=== PATIENT | female | born 1945 | race Caucasian/White ===

== ENCOUNTER → 2016-04-07 | Outpatient (CLI) | payer OTHER ==
[~2016-04-07] MED LIST: ACET325T82 PO; ADVIN25/60 INH; ALBUAER19 INH; AMLO-114 PO; AMX500 PO; B-CO1CAP17 PO; BENZ100C7 PO; BXN500 PO; CALC667C4 PO; CEPH500T PO; CLON0.1T12 PO; CMD5 PO; COLE1TAB PO; CYNI1000 IM; EPGI10M; ERGO1CAP35 PO; ERGO500037 PO; FRS/40 PO; INSDGI SC; IPRASOL4 INH; IRON INFUSIONS IV; LACT1TAB26 PO; LCTX PO; LEVO1TAB34 PO; LIDO1CRE24 TOP; LIDO1CRE58 TOP; LMTHP PO; LOSA100T65 PO; LOSA1TAB38 PO; LSX40 PO; LVQ500 PO; METH4PAK PO; METO25TA56 PO; NVLGIPEN SQ; ONDA8TAB12 PO; OXGN; PANT40TA PO; PRD20 PO; PRED10TA PO; PRED1SUS3 OPL; PRT/40 PO; PSEU1TAB PO; RBTUDL10 PO; UMEC1INH INH; VALA1TAB2 PO; VALA1TAB31 PO; VNTHFA/IN INH; WARF5TAB90 PO
--- NOTE | 2016-04-07 10:40 | DIAGNOSTIC IMAGING REPORT ---
RENAL ULTRASOUND CLINICAL HISTORY: Right renal mass. COMPARISON STUDY: Renal ultrasound and CT of the abdomen and pelvis October 04, 2015. TECHNIQUE: Sonography of the kidneys and the urinary bladder was performed. FINDINGS: The right kidney measures 9.5 x 4.2 x 4 cm and the left measures 8.9 x 3.6 x 3.7 cm. There is increased renal echogenicity. Note is made of moderate to marked renal cortical thinning. A 2.4 cm cystic lesion within the midpole of the right kidney is noted. This corresponds to the hyperdense lesion shown on prior CT. This is minimally increased in size since exam of October 04, 2015 when it measured 2.1 cm. There is no hydronephrosis. The bladder suboptimally assessed on this exam due to underdistention but no abnormalities are identified. IMPRESSION: 1. Mild increase in size of a 2.4 cm right renal cyst. This corresponds to the hyperdense lesion shown on prior CT. This is almost entirely cystic and is likely benign. 2. No hydronephrosis. 3. Increased renal echogenicity and moderate to marked renal cortical thinning. Electronically signed by: Vicente Tapia M.D. 04/07/2016 10:38 AM Dictated Date/Time: 04/07/2016 10:35 AM
== END | disposition home or self-care (01) ==
LOC: C.ULTR 10:05
PROVIDERS: ATTEND Urology
DX: N28.89 Other specified disorders of kidney and ureter (principal); N28.1 Cyst of kidney, acquired

== ENCOUNTER 2016-04-12 17:55 | Inpatient (IN) | payer OTHER ==
[~2016-04-12] VITALS: Ht 167.6 cm; Wt 92.8 kg
[~2016-04-12 17:55] MED LIST changes: -ACET325T82 PO; -AMX500 PO; -B-CO1CAP17 PO; -BENZ100C7 PO; -BXN500 PO; -CEPH500T PO; -COLE1TAB PO; -CYNI1000 IM; -ERGO500037 PO; -LACT1TAB26 PO; -LCTX PO; -LEVO1TAB34 PO; -LIDO1CRE58 TOP; -LMTHP PO; -LOSA1TAB38 PO; -LSX40 PO; -LVQ500 PO; -METH4PAK PO; -ONDA8TAB12 PO; -PANT40TA PO; -PRD20 PO; -PRED10TA PO; -PRT/40 PO; -PSEU1TAB PO; -UMEC1INH INH; -VALA1TAB2 PO; -VNTHFA/IN INH; -WARF5TAB90 PO
--- NOTE | 2016-04-12 18:21 | EMERGENCY ROOM VISIT NOTE ---
History Report prepared by Sebastian: Tamiko Cornejo Under the Supervision of: Dr. Hailey Valdez M.D. First contact with patient: 18:09 Chief Complaint: SHORTNESS OF BREATH Stated Complaint: SOB Nursing Triage Summary: Patient is from home, increased SOB since Tuesday. Dialysis patient, due for dialysis tomorrow. Home O2 Chronic 2 L NC. 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 The patient states that after a full round dialysis on 2 days ago she a meal of Romanian food and then she vomited. She states then she started experiencing diarrhea, chills, chest pain, and worsening SOB. She states that she normally wears 2 L of oxygen at home at night but put it on a little earlier due to the SOB. She states that she has continued to be nauseous and dry heave because she has not eaten anything recently and only had some re aurelia toady. She states she has not taken any of her medication except for warfarin yesterday and today. The patient's daughter states that the patient has recently been vomiting after feeling ill and then afterwards feeling better but states that the last 2 days her symptoms were not resolved. The patient states that she has dialysis Tuesdays, and Saturdays and only makes little amounts of her own urine. 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 A total of 10 systems reviewed and were otherwise negative. 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 (14) Hypertension Nos (15) Moderate mitral regurgitation (16) Obesity (17) Osteoarthritis (18) Pancreatic cyst (19) Psoriasis (20) Renal cyst Surgical Problems: (1) H/O colonoscopy (2) H/O nasal polypectomy (3) History of cataract surgery (4) S/P appendectomy (5) S/P cholecystectomy (6) S/P left oophorectomy (7) S/P ASH (total abdominal hysterectomy) Family History Diabetes mellitus FATHER MOTHER BROTHER FH: cancer BROTHER FH: heart disease FATHER Hypertension BROTHER Kidney disease BROTHER Social History Smoking Status: Current Every Day Smoker Marital Status: Housing Status: lives with family Occupation Status: retired Current/Historical Medications Scheduled Amlodipine (Norvasc), 10 MG PO QAM Calcium Acetate (Phoslo 667 Mg), 1 CAP PO TID Clonidine Hcl (Catapres), 0.1 MG PO QAM Cyanocobalamin (Cyanocobalamin), 1,000 MCG IM MONTHLY Epoetin Hakan (Procrit), UD Ergocalciferol (Vitamin D Cap), 50,000 INTERUNIT PO MONTHLY Fluticasone Prop/Salmeterol (Advair Diskus 250/50 60 Dose), 2 PUFF INH BID Furosemide (Lasix), 40 MG PO DAILY Insulin Aspart (Novolog Flexpen), UNITS SQ UD Insulin Glargine (Lantus), 26 UNITS SC QAM Lidocaine-Prilocaine (Emla), 1 APPLN TOP UD Losartan Potassium (Cozaar), 100 MG PO QAM Metoprolol Tartrate (Lopressor) (Lopressor), 37.5 MG PO BID Oxygen (Oxygen), 2.5 LITERS NA HS Prednisolone Acetate 1% Oph (Pred Forte 1% Oph), 1 DROP OPL QAM Valacyclovir Hcl (Valtrex), 1 GM PO QAM Warfarin Sod (Coumadin), 7.5 MG PO DAILY Scheduled PRN Albuterol Inhaler (Ventolin Inhaler), 2 PUFFS INH Q4 PRN for Wheezing Ipratropium-Albuterol (Duoneb), 1 TREATMENT INH QID PRN for SOB/Wheezing Ondansetron Hcl (Zofran), 8 MG PO Q8 PRN for Nausea or Vomiting Allergies Coded Allergies: No Known Allergies (Verified , 04/12/16) Physical Exam Vital Signs Date Time Temp Pulse Resp B/P Pulse Ox O2 Delivery O2 Flow Rate FiO2 04/12/16 21:33 74 32 95 Nasal Cannula 3.0 04/12/16 21:28 174/82 04/12/16 21:04 72 27 95 Nasal Cannula 3.0 04/12/16 20:58 177/86 04/12/16 20:34 74 95 Nasal Cannula 3.0 04/12/16 20:29 189/64 04/12/16 19:59 177/61 04/12/16 19:55 73 96 Nasal Cannula 3.0 04/12/16 19:28 175/75 04/12/16 19:21 174/67 04/12/16 18:55 75 27 04/12/16 18:18 87 Nasal Cannula 2.0 04/12/16 18:13 80 04/12/16 18:03 Nasal Cannula 2.0 04/12/16 18:02 37.6 80 20 178/70 94 Nasal Cannula 2.0 04/12/16 18:01 178/70 04/12/16 18:00 Nasal Cannula 2.0 Physical Exam Vital signs reviewed. General: Chronically ill appearing female on nasal canula oxygen. HEENT: No scleral icterus, PERRLA, neck supple. Atraumatic. Cardiovascular: Regular rate and rhythm, no extra sounds. Pulmonary: Increased work of breathing, diminished breath sounds at the bases with crackles throughout. Abdomen: Soft, nontender, nondistended, positive bowel sounds. Musculoskeletal: Atraumatic, no peripheral edema. Neurologic: Patient awake alert and oriented x 3, full strength in all 4 extremities. Cranial nerves 2 through 12 grossly intact. Skin: Warm, dry, no rash Medical Decision & Procedures ER Provider Diagnostic Interpretation: X-ray results as stated below per interpretation by me and the radiologist: CHEST ONE VIEW PORTABLE HISTORY: Cough. Short of breath. COMPARISON: Chest 03/18/2016. FINDINGS: The cardiac silhouette is mildly enlarged. There are slight prominence of interstitial markings. No focal lung consolidations to suggest pneumonia. No pleural effusions. No pneumothorax. IMPRESSION: Cardiomegaly with slight prominence of interstitial markings. This favors mild pulmonary vascular congestion without overt edema. Electronically signed by: Dave Castañeda M.D. 04/12/2016 7:25 PM Dictated Date/Time: 04/12/2016 7:23 PM Laboratory Results Test 04/12/16 18:00 04/12/16 18:31 04/12/16 18:38 Immature Granulocyte % (Auto) 0.2 % White Blood Count 4.04 K/uL (4.8-10.8) Red Blood Count 2.42 M/uL (4.2-5.4) Hemoglobin 8.4 g/dL (12.0-16.0) Hematocrit 26.7 % (37-47) Mean Corpuscular Volume 110.3 fL (80-100) Mean Corpuscular Hemoglobin 34.7 pg (25-34) Mean Corpuscular Hemoglobin Concent 31.5 g/dl (32-36) Platelet Count 135 K/uL (130-400) Mean Platelet Volume 10.0 fL (7.4-10.4) Neutrophils (%) (Auto) 76.3 % Lymphocytes (%) (Auto) 11.9 % Monocytes (%) (Auto) 10.9 % Eosinophils (%) (Auto) 0.5 % Basophils (%) (Auto) 0.2 % Neutrophils # (Auto) 3.08 K/uL (1.4-6.5) Lymphocytes # (Auto) 0.48 K/uL (1.2-3.4) Monocytes # (Auto) 0.44 K/uL (0.11-0.59) Eosinophils # (Auto) 0.02 K/uL (0-0.5) Basophils # (Auto) 0.01 K/uL (0-0.2) Immature Granulocyte # (Auto) 0.01 K/uL (0.00-0.02) Polychromasia 1+ Macrocytosis PRESENT Activated Partial Thromboplast Time 32.2 SECONDS (21.0-31.0) Partial Thromboplastin Ratio 1.2 Total Bilirubin 1.2 mg/dl (0.2-1) Direct Bilirubin 0.2 mg/dl (0-0.2) Aspartate Amino Transf (AST/SGOT) 15 U/L (15-37) Alanine Aminotransferase (ALT/SGPT) 20 U/L (12-78) Alkaline Phosphatase 108 U/L (45-117) Total Protein 6.5 gm/dl (6.4-8.2) Albumin 3.3 gm/dl (3.4-5.0) Hepatitis C Antibody Screen NEG (NEG) Bedside Troponin I 0.020 ng/ml (0-0.045) Influenza Type A (RT-PCR) Neg for Influ A (NEG) Influenza Type B (RT-PCR) Neg for Influ B (NEG) Laboratory results per my review. Medications Administered Medications (Trade) Dose Ordered Sig/Joan Route Start Time Stop Time Status Last Admin Dose Admin Piperacillin Sod/ Tazobactam Sod (Zosyn Iv) 4.5 gm NOW STAT IV 04/12/16 20:32 04/12/16 20:34 DC 04/12/16 20:53 4.5 GM ECG Indication: SOB/dyspnea Rate (beats per minute): 79 Rhythm: normal sinus Findings: no acute ischemic change, no ectopy ED Course 1810: Past medical records reviewed. The patient was evaluated in room B6. A complete history and physical examination was performed. 2031: Ordered Zosyn IV 4.5 gm IV. 2034: I discussed the case with Dr. Jennifer Mulligan. He agreed to evaluate the patient for further management and care. Medical Decision The patient is a 71 year old female who presents to the ED with complaints of SOB. Differentials include etiologies such as infections, reactive airway disease, pneumonia, pneumothorax, COPD, CHF, cardiac ischemia, pulmonary embolism, musculoskeletal, gastrointestinal, as well as others were entertained. This pt was evaluated and appeared to be in no distress. IV access was obtained and lab work was drawn. 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 EKG reveals no evidence of acute ischemia. Lab work reveals a chronic anemia and leukopenia with stable K+. CXR reveals pulm vascular congestion. Pt is hypoxic on her n/c O2. Pt was given zosyn 4.5 gm IV as she was mildly febrile for possibility of underlying PNA. Pt was d./w the hospitalist service for further evaluation and management. Pt and daughter were are of the plan and agree. Consults Time Called: 2029 Consulting Physician: Dr. Jennifer Torres Returned Call: 2034 I discussed the case with Dr. Jennifer Mulligan. He agreed to evaluate the patient for further management and care. Impression Primary Impression: Hypoxemia Additional Impressions: Pulmonary congestion ESRD (end stage renal disease) on dialysis Scribe Attestation The scribe's documentation has been prepared under my direction and personally reviewed by me in its entirety. I confirm that the note above accurately reflects all work, treatment, procedures, and medical decision making performed by me. Departure Information Dispostion Being Evaluated By Hospitalist Referrals Noam Armando M.D. (PCP) Problem Qualifiers
[2016-04-12 18:36] LABS: BASO % 0.2 %; BASO ABS # 0.01 K/uL (0-0.2); EOS % 0.5 %; HEMATOCRIT 26.7 % (37-47); IG% 0.2 %; LYMPH % 11.9 %; LYMPH ABS # 0.48 K/uL (1.2-3.4); MEAN CELL VOLUME 110.3 fL (80-100); MEAN CORPUSCULAR HEMOGLOBIN 34.7 pg (25-34); MEAN CORPUSCULAR HGB CONC 31.5 g/dl (32-36); MONO % 10.9 %; NEUT % 76.3 %; PLATELET COUNT 135 K/uL (130-400); RED BLOOD COUNT 2.42 M/uL (4.2-5.4); WHITE BLOOD COUNT 4.04 K/uL (4.8-10.8)
[2016-04-12 18:48] LABS: INR 1.4 (0.9-1.1); PARTIAL THROMBOPLASTIN RATIO 1.2; PROTHROMBIN TIME (PATIENT) 15.4 SECONDS (9.0-12.0)
[2016-04-12 19:09] LABS: COMPLETE YES; POLYCHROMASIA 1+
[2016-04-12 19:21] LABS: BUN/CREATININE RATIO 8.3 (10-20); POTASSIUM 4.4 mmol/L (3.5-5.1)
[2016-04-12 19:22] LABS: CREATININE 9.1 mg/dl (0.60-1.20)
--- NOTE | 2016-04-12 19:27 | DIAGNOSTIC IMAGING REPORT ---
CHEST ONE VIEW PORTABLE HISTORY: Cough. Short of breath. COMPARISON: Chest 03/18/2016. FINDINGS: The cardiac silhouette is mildly enlarged. There are slight prominence of interstitial markings. No focal lung consolidations to suggest pneumonia. No pleural effusions. No pneumothorax. IMPRESSION: Cardiomegaly with slight prominence of interstitial markings. This favors mild pulmonary vascular congestion without overt edema. Electronically signed by: Dave Castañeda M.D. 04/12/2016 7:25 PM Dictated Date/Time: 04/12/2016 7:23 PM
[2016-04-12] MEDS ORDERED: PIPERACILLIN/TAZOBACTAM 4.5 GM/100ML D5W IV STA (20:32)
[2016-04-12 21:07] LABS: INFLUENZA A PCR Neg for Influ A (NEG); INFLUENZA B PCR Neg for Influ B (NEG)
[2016-04-12] MEDS ORDERED: CYNI1000 IM (21:59)
[2016-04-12] MEDS ORDERED: ACETAMINOPHEN 325 MG TAB PO PRN (22:00)
[2016-04-12] MEDS ORDERED: ALBUTEROL HFA 8 GM INHALER INH PRN (22:00)
[2016-04-12] MEDS ORDERED: ONDANSETRON INJ 2 MG/ML 2 ML VIAL IV PRN (22:00)
[2016-04-12] MEDS ORDERED: ONDA8TAB12 PO (22:11)
[2016-04-12 22:14] VITALS: Ht 167.6 cm; Wt 92.8 kg
[2016-04-12] MEDS ORDERED: GLUCOSE 40% GEL 15 GM TUBE PO PRN (22:15)
[2016-04-12] MEDS ORDERED: GLUCAGON FOR INJ 1 MG VIAL SQ PRN (22:15)
[2016-04-12] MEDS ORDERED: GLUCOSE 10 TABS/TUBE PO PRN (22:15)
[2016-04-12] MEDS ORDERED: ALBUT/IPRATROP 3MG/0.5MG NEB 3 ML VIAL INH PRN (22:15)
[2016-04-12] MEDS ORDERED: DEXTROSE 50% 50 ML SYR IV PRN (22:15)
[2016-04-12] MEDS ORDERED: PIPERACILL/TAZOBAC CONSULT ACTIVE PRN (22:30)
--- NOTE | 2016-04-12 22:41 | History and Physical ---
History & Physical Date & Time of Service: Apr 12, 2016 at 22:08 Chief Complaint: SOB Primary Care Physician: Noam Armando M.D. History of Present Illness Source: patient, clinic records, hospital records This is a 71 year old female with PMH of ESRD on HD, HTN, PAF on Coumadin, DM type 2, moderate COPD on chronic nocturnal O2, and other problems listed below who presents to the ED for SOB. Patient follows with Dr. Armando for primary care and Dr. Tijerina for nephrology. She gets dialysis -- Tue with last dialysis on Tuesday. Patient was recently treated with Levaquin as outpatient for CLOVIS pneumonia diagnosed on CT on ER visit 03/18/16. Symptoms had resolved. Then two days ago she became ill with SOB, wheezing, cough with yellow sputum, rhinorrhea, sneezing, watery eyes, chills, nausea, vomiting, and diarrhea. Breathing is now improved after neb treatment given en route. No further vomiting or diarrhea since yesterday evening. No PO intake today. She produces a small amount of urine. She denies fever, sore throat, ear ache, BETANCOURT, abdominal pain, edema, weight gain, abnormal bleeding. Patient did not take any of her medications for past 2 days except for Coumadin. Past Medical/Surgical History Medical Problems: (1) A-fib Permanent Comment: paroxysmal Status: Chronic (2) Adrenal adenoma Status: Chronic (3) Anemia of chronic disease Status: Chronic (4) AV fistula Status: Chronic (5) COPD, moderate Permanent Comment: 2L O2 at home Status: Chronic (6) Diastolic dysfunction with chronic heart failure Permanent Comment: echo 07/2014 - EF 60-65%, grade II diastolic dysfunction echo 06/2015 - diastolic function normal Status: Chronic (7) DM type 2 (diabetes mellitus, type 2) Status: Chronic (8) Dyslipidemia Status: Chronic (9) ESRD (end stage renal disease) on dialysis Status: Chronic (10) H/O cardiovascular stress test Permanent Comment: 05/2013 - negative for ischemia Status: Chronic (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 (12) Hypertension Nos Status: Chronic (13) Moderate mitral regurgitation Permanent Comment: echo 06/2015 - calcified mitral valve, moderate MR Status: Chronic (14) Obesity Status: Chronic (15) Osteoarthritis Status: Chronic (16) Pancreatic cyst Status: Chronic (17) Psoriasis Status: Chronic (18) Renal cyst Status: Chronic Surgical Problems: (1) H/O colonoscopy Permanent Comment: 2005, hyperplastic polyps repeat in 10 years Status: Chronic (2) H/O nasal polypectomy Status: Chronic (3) History of cataract surgery Status: Chronic (4) S/P appendectomy Permanent Comment: 1971 Status: Chronic (5) S/P cholecystectomy Permanent Comment: 1971 Status: Chronic (6) S/P left oophorectomy Permanent Comment: 1981 Status: Chronic (7) S/P ASH (total abdominal hysterectomy) Permanent Comment: For Fibroids Status: Resolved Family History Diabetes mellitus FATHER MOTHER BROTHER FH: cancer BROTHER FH: heart disease FATHER Hypertension BROTHER Kidney disease BROTHER Social History Smoking Status: Current Every Day Smoker (states less than 1 ppd) Alcohol Use: none Drug Use: none Housing status: lives alone Immunizations History of Influenza Vaccine: Yes Influenza Vaccine Date: Dec 26, 2014 History of Tetanus Vaccine?: Yes Tetanus Immunization Date: August 04, 2010 History of Pneumococcal: Yes Pneumococcal Date: Feb 24, 2015 Multi-Drug Resistant Organisms History of MDRO: No Allergies Coded Allergies: No Known Allergies (Verified , 04/12/16) Home Medications Scheduled Amlodipine (Norvasc), 10 MG PO QAM Calcium Acetate (Phoslo 667 Mg), 1 CAP PO TID Clonidine Hcl (Catapres), 0.1 MG PO QAM Cyanocobalamin (Cyanocobalamin), 1,000 MCG IM MONTHLY Epoetin Hakan (Procrit), UD Ergocalciferol (Vitamin D Cap), 50,000 INTERUNIT PO MONTHLY Fluticasone Prop/Salmeterol (Advair Diskus 250/50 60 Dose), 2 PUFF INH BID Furosemide (Lasix), 40 MG PO DAILY Insulin Aspart (Novolog Flexpen), UNITS SQ UD Insulin Glargine (Lantus), 26 UNITS SC QAM Lidocaine-Prilocaine (Emla), 1 APPLN TOP UD Losartan Potassium (Cozaar), 100 MG PO QAM Metoprolol Tartrate (Lopressor) (Lopressor), 37.5 MG PO BID Oxygen (Oxygen), 2.5 LITERS NA HS Prednisolone Acetate 1% Oph (Pred Forte 1% Oph), 1 DROP OPL QAM Valacyclovir Hcl (Valtrex), 1 GM PO QAM Warfarin Sod (Coumadin), 7.5 MG PO DAILY Scheduled PRN Albuterol Inhaler (Ventolin Inhaler), 2 PUFFS INH Q4 PRN for Wheezing Ipratropium-Albuterol (Duoneb), 1 TREATMENT INH QID PRN for SOB/Wheezing Ondansetron Hcl (Zofran), 8 MG PO Q8 PRN for Nausea or Vomiting Review of Systems Ten point review of systems performed with pertinent positives and negatives noted in HPI. Physical Exam Vital Signs Date Time Temp Pulse Resp B/P Pulse Ox O2 Delivery O2 Flow Rate FiO2 04/12/16 22:07 72 04/12/16 21:28 174/82 04/12/16 21:04 72 27 95 Nasal Cannula 3.0 04/12/16 20:58 177/86 04/12/16 20:34 74 95 Nasal Cannula 3.0 04/12/16 20:29 189/64 04/12/16 19:59 177/61 04/12/16 19:55 73 96 Nasal Cannula 3.0 04/12/16 19:28 175/75 04/12/16 19:21 174/67 04/12/16 18:55 75 27 04/12/16 18:18 87 Nasal Cannula 2.0 04/12/16 18:13 80 04/12/16 18:03 Nasal Cannula 2.0 04/12/16 18:02 37.6 80 20 178/70 94 Nasal Cannula 2.0 04/12/16 18:01 178/70 04/12/16 18:00 Nasal Cannula 2.0 General Appearance: no apparent distress, + obese, + pertinent finding ( chronically ill 71 year old female) Head: normocephalic, atraumatic Eyes: normal inspection, PERRL, EOMI, sclerae normal ENT: hearing grossly normal, pharynx normal, + pertinent finding (no erythema or bulging of bilateral TM's) Neck: supple, no JVD, trachea midline Respiratory/Chest: no respiratory distress, no accessory muscle use, + decreased breath sounds, + pertinent finding (mild wheezing) Cardiovascular: regular rate, rhythm, no murmur Abdomen/GI: normal bowel sounds, non tender, soft Extremities/Musculoskelatal: normal inspection, no calf tenderness, normal capillary refill, no pedal edema Neurologic/Psych: alert, normal mood/affect, oriented x 3 Skin: normal color, warm/dry Diagnostics Laboratory Results Results Past 24 Hours Test 04/12/16 18:00 04/12/16 18:26 04/12/16 18:31 04/12/16 18:38 Range/Units White Blood Count 4.04 4.8-10.8 K/uL Red Blood Count 2.42 4.2-5.4 M/uL Hemoglobin 8.4 12.0-16.0 g/dL Hematocrit 26.7 37-47 % Mean Corpuscular Volume 110.3 80-100 fL Mean Corpuscular Hemoglobin 34.7 25-34 pg Mean Corpuscular Hemoglobin Concent 31.5 32-36 g/dl Platelet Count 135 130-400 K/uL Mean Platelet Volume 10.0 7.4-10.4 fL Neutrophils (%) (Auto) 76.3 % Lymphocytes (%) (Auto) 11.9 % Monocytes (%) (Auto) 10.9 % Eosinophils (%) (Auto) 0.5 % Basophils (%) (Auto) 0.2 % Neutrophils # (Auto) 3.08 1.4-6.5 K/uL Lymphocytes # (Auto) 0.48 1.2-3.4 K/uL Monocytes # (Auto) 0.44 0.11-0.59 K/uL Eosinophils # (Auto) 0.02 0-0.5 K/uL Basophils # (Auto) 0.01 0-0.2 K/uL RDW Standard Deviation 61.2 36.4-46.3 fL RDW Coefficient of Variation 15.3 11.5-14.5 % Immature Granulocyte % (Auto) 0.2 % Immature Granulocyte # (Auto) 0.01 0.00-0.02 K/uL Polychromasia 1+ Macrocytosis PRESENT Prothrombin Time 15.4 9.0-12.0 SECONDS Prothromb Time International Ratio 1.4 0.9-1.1 Activated Partial Thromboplast Time 32.2 21.0-31.0 SECONDS Partial Thromboplastin Ratio 1.2 Sodium Level 139 136-145 mmol/L Potassium Level 4.4 3.5-5.1 mmol/L Chloride Level 95 98-107 mmol/L Carbon Dioxide Level 32 21-32 mmol/L Anion Gap 12.0 3-11 mmol/L Blood Urea Nitrogen 75 7-18 mg/dl Creatinine 9.10 0.60-1.20 mg/dl Est Creatinine Clear Calc Drug Dose 6.6 ml/min Estimated GFR () 4.6 Estimated GFR (Non- 4.0 BUN/Creatinine Ratio 8.3 10-20 Random Glucose 142 70-99 mg/dl Calcium Level 8.0 8.5-10.1 mg/dl Magnesium Level 2.0 1.8-2.4 mg/dl Total Bilirubin 1.2 0.2-1 mg/dl Direct Bilirubin 0.2 0-0.2 mg/dl Aspartate Amino Transf (AST/SGOT) 15 15-37 U/L Alanine Aminotransferase (ALT/SGPT) 20 12-78 U/L Alkaline Phosphatase 108 45-117 U/L Total Protein 6.5 6.4-8.2 gm/dl Albumin 3.3 3.4-5.0 gm/dl Bedside Glucose 137 70-90 mg/dl Bedside Troponin I 0.020 0-0.045 ng/ml Influenza Type A (RT-PCR) Neg for Influ A NEG Influenza Type B (RT-PCR) Neg for Influ B NEG Microbiology Results 04/12/16 Blood Culture, Received Pending 04/12/16 Blood Culture, Received Pending Diagnostic Radiology CHEST ONE VIEW PORTABLE HISTORY: Cough. Short of breath. COMPARISON: Chest 03/18/2016. FINDINGS: The cardiac silhouette is mildly enlarged. There are slight prominence of interstitial markings. No focal lung consolidations to suggest pneumonia. No pleural effusions. No pneumothorax. IMPRESSION: Cardiomegaly with slight prominence of interstitial markings. This favors mild pulmonary vascular congestion without overt edema. EKG NSR, no ST or T wave abnormalities Impression Assessment and Plan COPD EXACERBATION with HYPOXIA In setting of ESRD on HD; recent treatment with Levaquin for CLOVIS PNA in late February Was hypoxic to 87% on 2 liters NC (chronically on 2L HS at home) CXR- no infiltrate; influenza PCR negative Blood cultures pending Check sputum culture Zosyn started in ER- will continue IV Solu-Medrol 40 mg TID Duonebs scheduled and PRN Continue supplemental O2 DIARRHEA Check stool for C. diff; at risk due to recent antibiotics ESRD ON HD Dialyses Tuesday, , Tuesday Consult nephrology CHRONIC ANEMIA in setting of ESRD Hg is 8.4 Has received Procrit through nephrology Monitor CBC HYPERTENSION BP elevated to 170s-180s systolic- likely due to missing all antihypertensive meds for past 2 days Will give her evening dose of Lopressor now Continue Lopressor, losartan, clonidine, amlodipine DM TYPE 2 Continue Lantus at reduced dose due to poor PO intake Insulin sliding scale coverage Check A1c in am PAROXYSMAL ATRIAL FIBRILLATION EKG shows NSR Continue metoprolol INR 1.4; will continue home dose of Coumadin Recheck INR in am CHRONIC DIASTOLIC CHF Appears euvolemic Continue furosemide Hx of HERPES IRIDOCYCLITIS: Continue Valacyclovir and prednisolone eye drops DVT PROPHYLAXIS On Coumadin CODE STATUS Full code per my discussion with the patient DISPOSITION Admit to med/surg Lives alone Follows with Dr. Armando for primary care Patient seen in collaboration with Dr. Rodriguez. Please see his addendum. Attending Addendum: The patient was seen and examined SOB and Chest tightness with low saturation at home Has had Vomiting and diarrhea at home as well [id number] any fever,chills or rigor O/E No apparent distress at rest HEENT-unremarkable Chest -decreased breath sound bilaterally Bibasilar crackles Heart-regular Abdomen-benign,no masses,bowel sound present Extremities-trace edema bilaterally Labs and Imaging studies were reviewed Has COPD exacerbation-probably infective Started on Zosyn -will continue Continue HD Agree with the assessment and plan. Dr Leobardo Rodriguez VTE Prophylaxis VTE Risk Assessment Done? Y/N: Yes Risk Level: Moderate
[2016-04-12] MEDS ORDERED: METOPROLOL TARTRATE 25 MG TAB PO ONE (23:00)
[2016-04-12] MEDS ORDERED: METHYLPREDNISOLONE IV 40 MG in SYRINGE 0 ML IV ONE (23:00)
[2016-04-12 23:03] VITALS: BP 174/78; TEMP 37.3; O2SAT 91
[2016-04-12] MEDS: WARFARIN SOD 7.5 MG TAB PO SCH (23:15)
[2016-04-13] VITALS (22 sets, daily range): BP systolic 134–156; BP diastolic 54–71; PULSE 57–70; TEMP 36.6–37.1; O2SAT 90–100
[2016-04-13] MEDS: PIPERACILL/TAZOBAC IV 3.375 GM in DEXTROSE 5% 100ML IV SCH ×2 (03:46→19:10)
[2016-04-13 05:38] LABS: HEMATOCRIT 23.5 % (37-47); MEAN CELL VOLUME 107.3 fL (80-100); MEAN CORPUSCULAR HEMOGLOBIN 35.2 pg (25-34); MEAN CORPUSCULAR HGB CONC 32.8 g/dl (32-36); PLATELET COUNT 118 K/uL (130-400); RED BLOOD COUNT 2.19 M/uL (4.2-5.4)
[2016-04-13 05:45] LABS: INR 1.6 (0.9-1.1); PROTHROMBIN TIME (PATIENT) 17.4 SECONDS (9.0-12.0)
[2016-04-13 06:11] LABS: ESTIMATED AVERAGE GLUCOSE 97 mg/dl; HA1C FLAG Normal (Normal)
[2016-04-13 06:40] LABS: BUN/CREATININE RATIO 9.2 (10-20); CALCIUM 7.7 mg/dl (8.5-10.1); MAGNESIUM 2.3 mg/dl (1.8-2.4); POTASSIUM 5.3 mmol/L (3.5-5.1)
[2016-04-13] MEDS: ALBUT/IPRATROP 3MG/0.5MG NEB 3 ML VIAL INH SCH ×4 (07:35→19:15)
[2016-04-13] MEDS ORDERED: EPOETIN ALFA 10,000 UNITS/ML VIAL IV. SCH (08:30)
[2016-04-13] MEDS: PrednisoLONE ACET 1% OP SUSP 5 ML BTL OPL SCH (08:33)
[2016-04-13] MEDS: FLUTICASONE/SALMETEROL 250/50 (ADVAIR) 14 PUFF/1 INHALER INH SCH ×2 (08:33→21:11)
[2016-04-13] MEDS: METHYLPREDNISOLONE IV 40 MG in SYRINGE 0 ML IV SCH ×3 (08:33→23:44)
[2016-04-13] MEDS: INSULIN GLARGINE SOLOSTAR 100 UNITS/ML 3 ML PEN SC SCH (08:54)
[2016-04-13] MEDS: INSULIN ASPART 100 UNITS/ML 3 ML PEN SC SCH ×4 (08:54→21:11)
[2016-04-13] MEDS: LOSARTAN POTASSIUM 50 MG TAB PO SCH (09:00)
[2016-04-13] MEDS: METOPROLOL TARTRATE 25 MG TAB PO SCH ×2 (09:00→21:14)
[2016-04-13] MEDS: AMLODIPINE BESYLATE 5 MG TAB PO SCH (09:00)
[2016-04-13] MEDS: CALCIUM ACETATE 667MG GELCAP PO SCH ×3 (09:00→21:00)
[2016-04-13] MEDS ORDERED: CLONIDINE HCL 0.1 MG TAB PO SCH (09:00)
[2016-04-13] MEDS: FUROSEMIDE 40 MG TAB PO SCH (09:00)
[2016-04-13] MEDS: LIDOCAINE/PRILOCAINE 2.5% EA CRM EXT PRN (14:12)
--- NOTE | 2016-04-13 15:29 | Progress Note ---
Subjective Date of Service: Apr 13, 2016. Subjective Pt evaluation today including: conversation w/ patient, physical exam, lab review, review of studies, review of inpatient medication list Saw/examined the patient in room 256 - presented to the hospital due to shortness of breath, dyspnea at rest. Feels slightly better this AM Problem List Medical Problems: (1) Chest pain Status: Acute (2) CHF (congestive heart failure) Status: Acute (3) COPD exacerbation Status: Acute (4) Hemoptysis Status: Acute (5) Hypoxemia Status: Acute (6) Hypoxia Status: Acute (7) Left lower lobe pneumonia Status: Acute (8) Pneumonia Status: Acute (9) Pulmonary congestion Status: Acute Review of Systems Constitutional: No chills, No fever Respiratory: + dyspnea at rest, + dyspnea on exertion, + shortness of breath, No cough, No hemoptysis, No sputum, No wheezing Cardiac: No chest pain, No edema, No palpitations Abdomen: No diarrhea, No nausea, No pain, No vomiting Heme: No abnormal bleeding/bruising Medications Current Inpatient Medications Medications (Trade) Dose Ordered Sig/Joan Route Start Time Stop Time Status Last Admin Dose Admin Acetaminophen (Tylenol Tab) 650 mg Q4H PRN PO 04/12/16 22:00 05/12/16 21:59 Ondansetron HCl (Zofran Inj) 4 mg Q6H PRN IV 04/12/16 22:00 05/12/16 21:59 Albuterol (Ventolin Hfa Inhaler) 2 puffs Q4 PRN INH 04/12/16 22:00 05/12/16 21:59 Amlodipine Besylate (Norvasc Tab) 10 mg QAM PO 04/13/16 09:00 05/13/16 08:59 Calcium Acetate (Phoslo Cap) 667 mg TID PO 04/13/16 09:00 05/13/16 08:59 Ergocalciferol (Vitamin D Cap) 50,000 interunit Q30D PO 05/06/16 09:00 06/05/16 08:59 Salmeterol Xinafoate/ Fluticasone (Advair Diskus 250/50 Inh) 2 puff BID INH 04/13/16 09:00 05/13/16 08:59 04/13/16 08:33 2 PUFF Furosemide (Lasix tab) 40 mg DAILY PO 04/13/16 09:00 05/13/16 08:59 Insulin Glargine (Lantus Solostar Pen) 13 unit QAM SC 04/13/16 09:00 05/13/16 08:59 04/13/16 08:54 13 UNIT Albuterol/ Ipratropium (Duoneb) 3 ml QIDR INH 04/13/16 08:00 05/13/16 07:59 04/13/16 10:54 3 ML Lidocaine/ Prilocaine (Emla 2.5% Crm) 1 ea UD PRN EXT 04/12/16 22:00 05/12/16 21:59 04/13/16 14:12 1 EA Losartan Potassium (coZAAR TAB) 100 mg QAM PO 04/13/16 09:00 05/13/16 08:59 Metoprolol Tartrate (Lopressor Tab) 37.5 mg BID PO 04/13/16 09:00 05/13/16 08:59 Prednisolone Acetate (Pred Forte 1% Oph Susp) 1 drops QAM OPL 04/13/16 09:00 05/13/16 08:59 04/13/16 08:33 1 DROPS Valacyclovir HCl (Valtrex Tab) 1,000 mg QAM PO 04/13/16 09:00 04/23/16 08:59 Warfarin Sodium (Coumadin Tab) 7.5 mg DAILY@1600 PO 04/12/16 23:00 05/12/16 22:59 04/12/16 23:15 7.5 MG Cyanocobalamin 1000 mcg 1,000 mcg Q30D IM 05/06/16 09:00 06/05/16 08:59 Methylprednisolone Sodium Succinate/ Syringe (Solu-Medrol IV/ Syringe) 0.64 ml @ 1.5 mls/min Q8H IV 04/13/16 08:00 05/13/16 07:59 04/13/16 08:33 1.5 MLS/MIN Insulin Aspart (novoLOG ASPART) SLIDING SCALE If C... ACHS SC 04/13/16 06:30 05/13/16 06:59 04/13/16 12:26 5 UNITS Glucose (Glucose 40% Gel) 15-30 GRAMS 15 GRAMS... UD PRN PO 04/12/16 22:15 05/12/16 22:14 Glucose (Glucose Chew Tab) 4-8 Tablets 4 Tabl... UD PRN PO 04/12/16 22:15 05/12/16 22:14 Dextrose (Dextrose 50% 50ML Syringe) 25-50ML OF 50% DW IV FOR... UD PRN IV 04/12/16 22:15 05/12/16 22:14 Glucagon (Glucagon Inj) 1 mg UD PRN SQ 04/12/16 22:15 05/12/16 22:14 Piperacillin Sod/ Tazobactam Sod (Consult) 1 ea UD PRN N/A 04/12/16 22:30 05/12/16 22:29 Albuterol/ Ipratropium 3 ml 3 ml Q2H PRN INH 04/12/16 22:15 05/12/16 22:14 04/13/16 01:55 3 ML Piperacillin Sod/ Tazobactam Sod/ Dextrose (Zosyn Iv/D5 100ml) 115 ml @ 28.75 mls/ hr Q12H IV 04/13/16 04:00 04/20/16 03:59 04/13/16 03:46 28.75 MLS/HR Epoetin Hakan (Procrit Inj) 10,000 units 0830 IV. 04/13/16 08:30 04/13/16 23:59 Clonidine HCl (Catapres Tab) 0.1 mg QAM PO 04/14/16 09:00 05/14/16 08:59 Objective Vital Signs Date Time Temp Pulse Resp B/P Pulse Ox O2 Delivery O2 Flow Rate FiO2 04/13/16 10:54 70 20 96 Nasal Cannula 2.0 04/13/16 08:00 Nasal Cannula 2.0 04/13/16 06:55 64 20 92 Nasal Cannula 2.0 04/13/16 06:48 36.8 69 18 144/71 90 Nasal Cannula 3.0 04/13/16 04:04 36.9 69 18 156/67 92 04/13/16 01:55 68 20 98 Nasal Cannula 2.0 04/12/16 23:03 37.3 18 174/78 91 Nasal Cannula 3.0 04/12/16 22:14 Nasal Cannula 04/12/16 22:13 37.3 04/12/16 22:07 72 04/12/16 22:03 75 28 93 Nasal Cannula 3.0 04/12/16 21:58 183/84 04/12/16 21:33 74 32 95 Nasal Cannula 3.0 04/12/16 21:28 174/82 04/12/16 21:04 72 27 95 Nasal Cannula 3.0 04/12/16 20:58 177/86 04/12/16 20:34 74 95 Nasal Cannula 3.0 04/12/16 20:29 189/64 04/12/16 19:59 177/61 04/12/16 19:55 73 96 Nasal Cannula 3.0 04/12/16 19:28 175/75 04/12/16 19:21 174/67 04/12/16 18:55 75 27 04/12/16 18:18 87 Nasal Cannula 2.0 04/12/16 18:13 80 04/12/16 18:03 Nasal Cannula 2.0 04/12/16 18:02 37.6 80 20 178/70 94 Nasal Cannula 2.0 04/12/16 18:01 178/70 04/12/16 18:00 Nasal Cannula 2.0 Physical Exam General Appearance: no apparent distress Respiratory/Chest: no respiratory distress, no accessory muscle use, + decreased breath sounds (decreased air movement) Cardiovascular: regular rate, rhythm, no edema, no murmur Abdomen: normal bowel sounds, non tender, soft Extremities: normal inspection, no pedal edema Neurologic/Psychiatric: no motor/sensory deficits, alert, normal mood/affect Laboratory Results Last 24 Hours Test 04/12/16 18:00 04/12/16 18:26 04/12/16 18:31 04/12/16 18:38 White Blood Count 4.04 K/uL Red Blood Count 2.42 M/uL Hemoglobin 8.4 g/dL Hematocrit 26.7 % Mean Corpuscular Volume 110.3 fL Mean Corpuscular Hemoglobin 34.7 pg Mean Corpuscular Hemoglobin Concent 31.5 g/dl Platelet Count 135 K/uL Mean Platelet Volume 10.0 fL Neutrophils (%) (Auto) 76.3 % Lymphocytes (%) (Auto) 11.9 % Monocytes (%) (Auto) 10.9 % Eosinophils (%) (Auto) 0.5 % Basophils (%) (Auto) 0.2 % Neutrophils # (Auto) 3.08 K/uL Lymphocytes # (Auto) 0.48 K/uL Monocytes # (Auto) 0.44 K/uL Eosinophils # (Auto) 0.02 K/uL Basophils # (Auto) 0.01 K/uL RDW Standard Deviation 61.2 fL RDW Coefficient of Variation 15.3 % Immature Granulocyte % (Auto) 0.2 % Immature Granulocyte # (Auto) 0.01 K/uL Polychromasia 1+ Macrocytosis PRESENT Prothrombin Time 15.4 SECONDS Prothromb Time International Ratio 1.4 Activated Partial Thromboplast Time 32.2 SECONDS Partial Thromboplastin Ratio 1.2 Sodium Level 139 mmol/L Potassium Level 4.4 mmol/L Chloride Level 95 mmol/L Carbon Dioxide Level 32 mmol/L Anion Gap 12.0 mmol/L Blood Urea Nitrogen 75 mg/dl Creatinine 9.10 mg/dl Est Creatinine Clear Calc Drug Dose 6.6 ml/min Estimated GFR () 4.6 Estimated GFR (Non- 4.0 BUN/Creatinine Ratio 8.3 Random Glucose 142 mg/dl Calcium Level 8.0 mg/dl Magnesium Level 2.0 mg/dl Total Bilirubin 1.2 mg/dl Direct Bilirubin 0.2 mg/dl Aspartate Amino Transf (AST/SGOT) 15 U/L Alanine Aminotransferase (ALT/SGPT) 20 U/L Alkaline Phosphatase 108 U/L Total Protein 6.5 gm/dl Albumin 3.3 gm/dl Hepatitis C Antibody Screen NEG Bedside Glucose 137 mg/dl Bedside Troponin I 0.020 ng/ml Influenza Type A (RT-PCR) Neg for Influ A Influenza Type B (RT-PCR) Neg for Influ B Test 04/13/16 05:20 04/13/16 07:38 04/13/16 11:27 White Blood Count 3.70 K/uL Red Blood Count 2.19 M/uL Hemoglobin 7.7 g/dL Hematocrit 23.5 % Mean Corpuscular Volume 107.3 fL Mean Corpuscular Hemoglobin 35.2 pg Mean Corpuscular Hemoglobin Concent 32.8 g/dl RDW Standard Deviation 60.1 fL RDW Coefficient of Variation 15.4 % Platelet Count 118 K/uL Mean Platelet Volume 10.0 fL Prothrombin Time 17.4 SECONDS Prothromb Time International Ratio 1.6 Sodium Level 137 mmol/L Potassium Level 5.3 mmol/L Chloride Level 96 mmol/L Carbon Dioxide Level 29 mmol/L Anion Gap 12.0 mmol/L Blood Urea Nitrogen 92 mg/dl Creatinine 10.00 mg/dl Est Creatinine Clear Calc Drug Dose 6.0 ml/min Estimated GFR () 4.1 Estimated GFR (Non- 3.5 BUN/Creatinine Ratio 9.2 Random Glucose 192 mg/dl Estimated Average Glucose 97 mg/dl Hemoglobin A1c 5.0 % Calcium Level 7.7 mg/dl Magnesium Level 2.3 mg/dl Bedside Glucose 200 mg/dl 137 mg/dl Assessment and Plan This is a 71 year old female with PMH of ESRD on HD, anemia of chronic disease, moderate COPD on nocturnal O2 with ongoing tobacco abuse, paroxysmal atrial fibrillation, insulin dependent DM2 presented with worsening shortness of breath Acute COPD exacerbation * requiring oxygen use continuously * CXR IMPRESSION: Cardiomegaly with slight prominence of interstitial markings. This favors mild pulmonary vascular congestion without overt edema. * continue solu-medrol today * nebulizers PRN * continue Levaquin ESRD on HD Anemia of Chronic Kidney Disease * ESRD with HD on Tuesday, , Tuesday * plan is for dialysis today * Anemia of chronic disease * Procrit today with dialysis * monitor H/H * Hgb = 7.7 * If Hgb < 7, will transfuse * appreciate nephrology input HTN * blood pressure improving * Continue home medications Insulin Dependent DM2 * Continue Lantus at reduced dose due to poor PO intake * Insulin sliding scale coverage * Ha1c = 5.0% - may need to decrease insulin dose as outpatient Paroxysmal Atrial Fibrillation * Currently NSR * Continue b-mariana * Continue Coumadin * Check INR in AM; INR today = 1.6, goal of 2-3 DVT ppx * Continue Coumadin FULL CODE
[2016-04-13] MEDS: WARFARIN SOD 7.5 MG TAB PO SCH (19:11)
--- NOTE | 2016-04-13 23:58 | NEPHROLOGY CONSULTATION ---
DATE OF CONSULTATION: 04/13/2016 ATTENDING OF RECORD: Dr. Schneider. REASON FOR CONSULTATION: ESRD. This is a 71-year-old female who dialyzes Tuesdays, , Saturdays at the [facility] through a fistula. The patient does have underlying COPD and actively smokes and started to have nausea and vomiting, diarrhea last week which eventually improved, then started to develop a productive cough and worsening shortness of breath and was brought in for further evaluation. The patient was diagnosed with COPD exacerbation and started on steroids and antibiotics and nebulizers. The patient also does have underlying paroxysmal AFib and is on Coumadin with occasional hemoptysis. PAST MEDICAL HISTORY: AFib paroxysmal, on Coumadin, history of adrenal adenoma, anemia of end-stage renal disease, moderate COPD, end-stage renal disease, type 2 diabetes, hyperlipidemia, hypertension. PAST SURGICAL HISTORY: Appendectomy, cholecystectomy, hysterectomy. FAMILY HISTORY: Significant for father and mother and brother with diabetes, brother with kidney disease. SOCIAL HISTORY: Current every day smoker, no alcohol, no drugs. Lives alone. REVIEW OF SYSTEMS: No fevers or chills. Positive cough. Positive shortness of breath. No more nausea, vomiting. No more diarrhea. No chest pain. No rash or itching. Positive fatigue. All other review of systems otherwise negative. CURRENT MEDICATIONS: Vitamin D 50,000 units monthly, vitamin B12 1000 mcg monthly, clonidine 0.1 mg daily, Norvasc 10 mg daily, PhosLo 1 p.o. t.i.d., Advair inhaler twice a day, Lasix 40 mg daily, Lantus 13 units daily, Cozaar 100 mg daily, Lopressor 37.5 mg p.o. b.i.d., Valtrex 1 g p.o. daily, Solu-Medrol 40 mg IV q. 8, Zosyn 3.375 IV q. 12, Coumadin 7.5 mg daily. PHYSICAL EXAMINATION: VITAL SIGNS: Temperature 36.6, pulse 62, respiratory rate is 20, blood pressure 134/65, satting 2 liters nasal cannula. GENERAL: Awake, alert, oriented x3. EYES: No scleral icterus. ENT: Moist mucous membranes. NECK: Supple. PULMONARY: Decreased air movement with decreased breath sounds at the bases. CARDIAC: Regular rate and rhythm. ABDOMEN: Bowel sounds positive, soft, nontender. EXTREMITIES: Mild edema. NEUROLOGICAL: Nonfocal. DERM: No rash or ulcers noted. LABORATORY DATA: White count is 3.7, H\T\H 7.7 and 23.5, platelet count is 118. Sodium level is 137, potassium is 5.3, chloride is 96, bicarb is 29, BUN is 92, creatinine 10, glucose is 192, calcium 7.7. Mag is 2.3. Troponin 0.020, albumin is 3.3. INR is 1.6. Hepatitis negative, flu negative. Chest x-ray shows cardiomegaly with slight prominence of interstitial markings which favors mild pulmonary vascular congestion without overt edema. ASSESSMENT AND PLAN: End-stage renal disease. Tentatively plan on dialysis today to help control the hyperkalemia. Remove fluid to help with breathing as well as give Procrit to help with the worsening anemia of renal failure. I do not feel that patient is actively bleeding and likely has an element of Procrit resistance, given the element of chronic obstructive pulmonary disease exacerbation. However, if hemoglobin levels do drop below 7, we would consider blood transfusion. The patient though is symptomatically improving with the current pulmonary toilet of nebulizers, steroids and antibiotics. We will continue dialysis Tuesdays, , and Saturdays.
[2016-04-14] VITALS (9 sets, daily range): BP systolic 135–163; BP diastolic 67–71; PULSE 58–88; TEMP 36.7–36.9; O2SAT 91–98
[2016-04-14] MEDS: PIPERACILL/TAZOBAC IV 3.375 GM in DEXTROSE 5% 100ML IV SCH ×2 (04:01→16:05)
[2016-04-14] MEDS ORDERED: VANCOMYCIN INJ 2,500 MG in SODIUM CHLORIDE 0.9% 500ML 500 ML IV STA (05:12)
[2016-04-14] MEDS ORDERED: VANCOMYCIN CONSULT ACTIVE PRN (05:15)
[2016-04-14] MEDS: ALBUT/IPRATROP 3MG/0.5MG NEB 3 ML VIAL INH SCH ×4 (07:12→20:01)
[2016-04-14 07:34] LABS: HEMATOCRIT 23.4 % (37-47); MEAN CELL VOLUME 108.3 fL (80-100); MEAN CORPUSCULAR HEMOGLOBIN 35.2 pg (25-34); MEAN CORPUSCULAR HGB CONC 32.5 g/dl (32-36); MEAN PLATELET VOLUME 10.1 fL (7.4-10.4); PLATELET COUNT 143 K/uL (130-400); RED BLOOD COUNT 2.16 M/uL (4.2-5.4); WHITE BLOOD COUNT 5.41 K/uL (4.8-10.8)
[2016-04-14 07:42] LABS: INR 2.2 (0.9-1.1); PROTHROMBIN TIME (PATIENT) 24.7 SECONDS (9.0-12.0)
[2016-04-14] MEDS: METHYLPREDNISOLONE IV 40 MG in SYRINGE 0 ML IV SCH ×3 (08:25→23:51)
[2016-04-14] MEDS: FLUTICASONE/SALMETEROL 250/50 (ADVAIR) 14 PUFF/1 INHALER INH SCH ×2 (08:25→20:55)
[2016-04-14] MEDS: LOSARTAN POTASSIUM 50 MG TAB PO SCH (08:26)
[2016-04-14] MEDS: CALCIUM ACETATE 667MG GELCAP PO SCH ×3 (08:26→20:56)
[2016-04-14] MEDS: METOPROLOL TARTRATE 25 MG TAB PO SCH ×2 (08:27→20:57)
[2016-04-14] MEDS: AMLODIPINE BESYLATE 5 MG TAB PO SCH (08:27)
[2016-04-14] MEDS: PrednisoLONE ACET 1% OP SUSP 5 ML BTL OPL SCH (08:28)
[2016-04-14] MEDS: CLONIDINE HCL 0.1 MG TAB PO SCH (08:28)
[2016-04-14] MEDS: FUROSEMIDE 40 MG TAB PO SCH (08:28)
[2016-04-14 08:38] LABS: BUN/CREATININE RATIO 8.8 (10-20); CREATININE 7.1 mg/dl (0.60-1.20); MAGNESIUM 2.3 mg/dl (1.8-2.4); POTASSIUM 4.7 mmol/L (3.5-5.1)
[2016-04-14] MEDS: INSULIN ASPART 100 UNITS/ML 3 ML PEN SC SCH ×4 (08:42→21:06)
[2016-04-14] MEDS: INSULIN GLARGINE SOLOSTAR 100 UNITS/ML 3 ML PEN SC SCH (08:43)
--- NOTE | 2016-04-14 09:16 | Nephrology Progress Note ---
Nephrology Progress Note Date of Service: Apr 14, 2016. Subjective Patient is a 71 year old female with ESRD who presented with COPD exacerbation upon admission. Patient states that she noticed an improved appetite yesterday and began to eat but got diarrhea shortly after lunch. diarrhea continued throughout the night. She also continues to have cough which she states is non- productive and sinus congestion. Denies any nausea and appetite is good. was able to eat all of breakfast this morning. Denies any chest pain. Edema is improved. Objective Date Time Temp Pulse Resp B/P Pulse Ox O2 Delivery O2 Flow Rate FiO2 04/14/16 08:11 36.9 70 20 155/71 91 Room Air 04/14/16 08:02 Nasal Cannula 3.0 04/14/16 07:12 72 16 95 Nasal Cannula 2.0 04/14/16 01:18 96 Nasal Cannula 2.0 04/14/16 00:12 36.9 71 20 163/67 95 Nasal Cannula 2.0 04/13/16 20:00 96 Nasal Cannula 2.0 04/13/16 19:15 69 16 96 Nasal Cannula 2.0 04/13/16 19:00 37.1 66 142/59 04/13/16 18:00 59 137/59 04/13/16 17:45 59 147/57 04/13/16 17:30 59 141/54 04/13/16 17:15 66 149/60 04/13/16 17:00 63 140/61 04/13/16 16:45 63 143/59 04/13/16 16:30 70 148/62 04/13/16 16:15 57 156/64 04/13/16 16:00 59 142/61 04/13/16 15:59 36.6 62 20 134/65 100 Nasal Cannula 2.0 04/13/16 15:45 59 153/59 04/13/16 15:30 59 144/59 04/13/16 15:16 59 139/62 04/13/16 15:07 36.9 59 145/59 04/13/16 15:00 Nasal Cannula 3.0 04/13/16 10:54 70 20 96 Nasal Cannula 2.0 Physical Exam: General: Alert, no distress, well nourished and well developed Head: Normocephalic, No masses, lesions, tenderness, or abnormalities ENT: no scleral icterus, moist mucosal membranes Neck: Supple, no adenopathy Heart: Regular rate and rhythm, no murmurs, no gallops Lungs: reduced at bases Abdomen: Soft, Nontender, nondistended, +Bowel Sounds Extremities: No joint deformities, effusion, or inflammation, no clubbing +AVF, 1+ edema b/l le Neuro Exam: Alert and oriented x 3 with fluent speech, no focal motor/sensory deficits Current Inpatient Medications Medications (Trade) Dose Ordered Sig/Joan Route Start Time Stop Time Status Last Admin Dose Admin Acetaminophen (Tylenol Tab) 650 mg Q4H PRN PO 04/12/16 22:00 05/12/16 21:59 Ondansetron HCl (Zofran Inj) 4 mg Q6H PRN IV 04/12/16 22:00 05/12/16 21:59 Albuterol (Ventolin Hfa Inhaler) 2 puffs Q4 PRN INH 04/12/16 22:00 05/12/16 21:59 Amlodipine Besylate (Norvasc Tab) 10 mg QAM PO 04/13/16 09:00 05/13/16 08:59 04/14/16 08:27 10 MG Calcium Acetate (Phoslo Cap) 667 mg TID PO 04/13/16 09:00 05/13/16 08:59 04/14/16 08:26 667 MG Ergocalciferol (Vitamin D Cap) 50,000 interunit Q30D PO 05/06/16 09:00 06/05/16 08:59 Salmeterol Xinafoate/ Fluticasone (Advair Diskus 250/50 Inh) 2 puff BID INH 04/13/16 09:00 05/13/16 08:59 04/14/16 08:25 2 PUFF Furosemide (Lasix tab) 40 mg DAILY PO 04/13/16 09:00 05/13/16 08:59 04/14/16 08:28 40 MG Insulin Glargine (Lantus Solostar Pen) 13 unit QAM SC 04/13/16 09:00 05/13/16 08:59 04/14/16 08:43 13 UNIT Albuterol/ Ipratropium (Duoneb) 3 ml QIDR INH 04/13/16 08:00 05/13/16 07:59 04/14/16 07:12 3 ML Lidocaine/ Prilocaine (Emla 2.5% Crm) 1 ea UD PRN EXT 04/12/16 22:00 05/12/16 21:59 04/13/16 14:12 1 EA Losartan Potassium (coZAAR TAB) 100 mg QAM PO 04/13/16 09:00 05/13/16 08:59 04/14/16 08:26 100 MG Metoprolol Tartrate (Lopressor Tab) 37.5 mg BID PO 04/13/16 09:00 05/13/16 08:59 04/14/16 08:27 37.5 MG Prednisolone Acetate (Pred Forte 1% Oph Susp) 1 drops QAM OPL 04/13/16 09:00 05/13/16 08:59 04/14/16 08:28 1 DROPS Valacyclovir HCl (Valtrex Tab) 1,000 mg QAM PO 04/13/16 09:00 04/23/16 08:59 04/14/16 08:33 1,000 MG Warfarin Sodium (Coumadin Tab) 7.5 mg DAILY@1600 PO 04/12/16 23:00 05/12/16 22:59 04/13/16 19:11 7.5 MG Cyanocobalamin 1000 mcg 1,000 mcg Q30D IM 05/06/16 09:00 06/05/16 08:59 Methylprednisolone Sodium Succinate/ Syringe (Solu-Medrol IV/ Syringe) 0.64 ml @ 1.5 mls/min Q8H IV 04/13/16 08:00 05/13/16 07:59 04/14/16 08:25 1.5 MLS/MIN Insulin Aspart (novoLOG ASPART) SLIDING SCALE If C... ACHS SC 04/13/16 06:30 05/13/16 06:59 04/14/16 08:42 10 UNITS Glucose (Glucose 40% Gel) 15-30 GRAMS 15 GRAMS... UD PRN PO 04/12/16 22:15 05/12/16 22:14 Glucose (Glucose Chew Tab) 4-8 Tablets 4 Tabl... UD PRN PO 04/12/16 22:15 05/12/16 22:14 Dextrose (Dextrose 50% 50ML Syringe) 25-50ML OF 50% DW IV FOR... UD PRN IV 04/12/16 22:15 05/12/16 22:14 Glucagon (Glucagon Inj) 1 mg UD PRN SQ 04/12/16 22:15 05/12/16 22:14 Piperacillin Sod/ Tazobactam Sod (Consult) 1 ea UD PRN N/A 04/12/16 22:30 05/12/16 22:29 Albuterol/ Ipratropium 3 ml 3 ml Q2H PRN INH 04/12/16 22:15 05/12/16 22:14 04/13/16 01:55 3 ML Piperacillin Sod/ Tazobactam Sod/ Dextrose (Zosyn Iv/D5 100ml) 115 ml @ 28.75 mls/ hr Q12H IV 04/13/16 04:00 04/20/16 03:59 04/14/16 04:01 28.75 MLS/HR Clonidine HCl (Catapres Tab) 0.1 mg QAM PO 04/14/16 09:00 05/14/16 08:59 04/14/16 08:28 0.1 MG Vancomycin HCl (Consult) 1 ea UD PRN N/A 04/14/16 05:15 05/14/16 05:14 Last 24 Hours Test 04/13/16 11:27 04/13/16 18:06 04/13/16 19:53 04/14/16 07:11 Bedside Glucose 137 mg/dl 156 mg/dl 167 mg/dl Prothrombin Time 24.7 SECONDS Prothromb Time International Ratio 2.2 Test 04/14/16 07:18 04/14/16 07:56 White Blood Count 5.41 K/uL Red Blood Count 2.16 M/uL Hemoglobin 7.6 g/dL Hematocrit 23.4 % Mean Corpuscular Volume 108.3 fL Mean Corpuscular Hemoglobin 35.2 pg Mean Corpuscular Hemoglobin Concent 32.5 g/dl RDW Standard Deviation 60.3 fL RDW Coefficient of Variation 15.4 % Platelet Count 143 K/uL Mean Platelet Volume 10.1 fL Sodium Level 136 mmol/L Potassium Level 4.7 mmol/L Chloride Level 98 mmol/L Carbon Dioxide Level 24 mmol/L Anion Gap 14.0 mmol/L Blood Urea Nitrogen 63 mg/dl Creatinine 7.10 mg/dl Est Creatinine Clear Calc Drug Dose 8.9 ml/min Estimated GFR () 6.2 Estimated GFR (Non- 5.4 BUN/Creatinine Ratio 8.8 Random Glucose 180 mg/dl Calcium Level 8.0 mg/dl Magnesium Level 2.3 mg/dl Bedside Glucose 200 mg/dl Assessment & Plan ESRD: Patient is to continue to dialyze every // or as clinical condition dictates. volume status improved. tolerated dialysis well yesterday per patient. potassium level adequate at 4.7. Anemia of ESRD: hgb 7.6. to continue to give procrit prn during dialysis and transfuse if hg under 7. This patient was seen and treated with direct collaboration with Dr. Tijerina. Thank you for the opportunity to participate in this patient's care. Appreciate the Consult. ATTENDING NOTE: I performed a history and physical examination of the patient, including specifically on history- pt is breathing better but still with cough, also experiencing diarrhea, on physical exam-minimal air movement but improving, and my impression and plan are ESRD-continue dialysis t/h/s. I have discussed the patient's management with Dee Dee Henley PA-C, Please refer to above note for the documented findings and plan of care. Ángel Tijerina DO
[2016-04-14] MEDS: WARFARIN SOD 7.5 MG TAB PO SCH (16:06)
--- NOTE | 2016-04-14 17:03 | Pharmacy Progress Note ---
Pharmacy Antibiotic Consult Date of Service: Apr 14, 2016. Pharmacy Dosing Scope Pharmacy is consulted to initiate Vancomycin and Zosyn IV dosing therapy, order appropriate labs and adjust drug dose/frequency. Subjective The patient is a 71 year old female admitted on Apr 12, 2016 at 21:57 with shortness of breath and dyspnea. PMH significant for COPD and ESRD on HD ([facility]). Objective Height (Feet): 5 Height (Inches): 6.00 Weight (Kilograms): 99.700 Lab Results (24hrs): Laboratory Tests Test 04/14/16 07:18 BUN/Creatinine Ratio 8.8 Blood Urea Nitrogen 63 mg/dl Creatinine 7.10 mg/dl White Blood Count 5.41 K/uL Micro Results: Item Value Date Time Blood Culture - Preliminary Resulted 04/12/16 1912 Blood Gram Positive Cocci Blood Culture - Preliminary Resulted 04/12/16 1830 Blood NO GROWTH TO DATE. Assessment & Plan 71 year old female receiving empiric antibiotics for treatment of a COPD exacerbation. Risk factors for resistance: - recent antibiotic use (levaquin for pnx) - ESRD on HD - recent hospital admission (01/15/16) Plan Vancomycin IV * The patient received a dose of 2500 mg IV on 04/14 @ 0539. * The patient's last HD session was on 04/13 pm. Per Nephrology notes, they plan to continue [facility] HD schedule. * Goal trough level estimate: between 15 - 20 mcg/mL. * Ordered a MRSA nasal swab to guide antibiotic de-escalation. * Further dosing based on levels - random level ordered for 04/15 am (pre-HD level). Zosyn * Continue 3.375g IV every 12 hours for HD. Pharmacy will continue to follow and will adjust dose/frequency as necessary. Thank you
--- NOTE | 2016-04-14 17:20 | Progress Note ---
Subjective Date of Service: Apr 14, 2016. Subjective Pt evaluation today including: conversation w/ patient, physical exam, lab review, review of studies, review of inpatient medication list Saw/examined the patient in room 256 Continues to have shortness of breath Some relief with nebulizers cough and chest congestion persist Problem List Medical Problems: (1) Chest pain Status: Acute (2) CHF (congestive heart failure) Status: Acute (3) COPD exacerbation Status: Acute (4) Hemoptysis Status: Acute (5) Hypoxemia Status: Acute (6) Hypoxia Status: Acute (7) Left lower lobe pneumonia Status: Acute (8) Pneumonia Status: Acute (9) Pulmonary congestion Status: Acute Review of Systems Constitutional: No chills, No fever Respiratory: + cough, + dyspnea on exertion, + shortness of breath, + sputum, No wheezing Cardiac: No chest pain Abdomen: No diarrhea, No nausea, No pain, No vomiting Medications Current Inpatient Medications Medications (Trade) Dose Ordered Sig/Joan Route Start Time Stop Time Status Last Admin Dose Admin Acetaminophen (Tylenol Tab) 650 mg Q4H PRN PO 04/12/16 22:00 05/12/16 21:59 Ondansetron HCl (Zofran Inj) 4 mg Q6H PRN IV 04/12/16 22:00 05/12/16 21:59 Albuterol (Ventolin Hfa Inhaler) 2 puffs Q4 PRN INH 04/12/16 22:00 05/12/16 21:59 Amlodipine Besylate (Norvasc Tab) 10 mg QAM PO 04/13/16 09:00 05/13/16 08:59 04/14/16 08:27 10 MG Calcium Acetate (Phoslo Cap) 667 mg TID PO 04/13/16 09:00 05/13/16 08:59 04/14/16 08:26 667 MG Ergocalciferol (Vitamin D Cap) 50,000 interunit Q30D PO 05/06/16 09:00 06/05/16 08:59 Salmeterol Xinafoate/ Fluticasone (Advair Diskus 250/50 Inh) 2 puff BID INH 04/13/16 09:00 05/13/16 08:59 04/14/16 08:25 2 PUFF Furosemide (Lasix tab) 40 mg DAILY PO 04/13/16 09:00 05/13/16 08:59 04/14/16 08:28 40 MG Insulin Glargine (Lantus Solostar Pen) 13 unit QAM SC 04/13/16 09:00 05/13/16 08:59 04/14/16 08:43 13 UNIT Albuterol/ Ipratropium (Duoneb) 3 ml QIDR INH 04/13/16 08:00 05/13/16 07:59 04/14/16 15:44 3 ML Lidocaine/ Prilocaine (Emla 2.5% Crm) 1 ea UD PRN EXT 04/12/16 22:00 05/12/16 21:59 04/13/16 14:12 1 EA Losartan Potassium (coZAAR TAB) 100 mg QAM PO 04/13/16 09:00 05/13/16 08:59 04/14/16 08:26 100 MG Metoprolol Tartrate (Lopressor Tab) 37.5 mg BID PO 04/13/16 09:00 05/13/16 08:59 04/14/16 08:27 37.5 MG Prednisolone Acetate (Pred Forte 1% Oph Susp) 1 drops QAM OPL 04/13/16 09:00 05/13/16 08:59 04/14/16 08:28 1 DROPS Valacyclovir HCl (Valtrex Tab) 1,000 mg QAM PO 04/13/16 09:00 04/23/16 08:59 04/14/16 08:33 1,000 MG Warfarin Sodium (Coumadin Tab) 7.5 mg DAILY@1600 PO 04/12/16 23:00 05/12/16 22:59 04/14/16 16:06 7.5 MG Cyanocobalamin 1000 mcg 1,000 mcg Q30D IM 05/06/16 09:00 06/05/16 08:59 Methylprednisolone Sodium Succinate/ Syringe (Solu-Medrol IV/ Syringe) 0.64 ml @ 1.5 mls/min Q8H IV 04/13/16 08:00 05/13/16 07:59 04/14/16 16:05 1.5 MLS/MIN Insulin Aspart (novoLOG ASPART) SLIDING SCALE If C... ACHS SC 04/13/16 06:30 05/13/16 06:59 04/14/16 13:12 7 UNITS Glucose (Glucose 40% Gel) 15-30 GRAMS 15 GRAMS... UD PRN PO 04/12/16 22:15 05/12/16 22:14 Glucose (Glucose Chew Tab) 4-8 Tablets 4 Tabl... UD PRN PO 04/12/16 22:15 05/12/16 22:14 Dextrose (Dextrose 50% 50ML Syringe) 25-50ML OF 50% DW IV FOR... UD PRN IV 04/12/16 22:15 05/12/16 22:14 Glucagon (Glucagon Inj) 1 mg UD PRN SQ 04/12/16 22:15 05/12/16 22:14 Piperacillin Sod/ Tazobactam Sod (Consult) 1 ea UD PRN N/A 04/12/16 22:30 05/12/16 22:29 Albuterol/ Ipratropium 3 ml 3 ml Q2H PRN INH 04/12/16 22:15 05/12/16 22:14 04/13/16 01:55 3 ML Piperacillin Sod/ Tazobactam Sod/ Dextrose (Zosyn Iv/D5 100ml) 115 ml @ 28.75 mls/ hr Q12H IV 04/13/16 04:00 04/20/16 03:59 04/14/16 16:05 28.75 MLS/HR Clonidine HCl (Catapres Tab) 0.1 mg QAM PO 04/14/16 09:00 05/14/16 08:59 04/14/16 08:28 0.1 MG Vancomycin HCl (Consult) 1 ea UD PRN N/A 04/14/16 05:15 05/14/16 05:14 Objective Vital Signs Date Time Temp Pulse Resp B/P Pulse Ox O2 Delivery O2 Flow Rate FiO2 04/14/16 15:44 58 16 98 Nasal Cannula 2.0 04/14/16 15:38 36.8 75 20 138/67 94 Nasal Cannula 2.0 04/14/16 11:29 88 16 93 Nasal Cannula 2.0 04/14/16 08:11 36.9 70 20 155/71 91 Room Air 04/14/16 08:02 Nasal Cannula 3.0 04/14/16 07:12 72 16 95 Nasal Cannula 2.0 04/14/16 01:18 96 Nasal Cannula 2.0 04/14/16 00:12 36.9 71 20 163/67 95 Nasal Cannula 2.0 04/13/16 20:00 96 Nasal Cannula 2.0 04/13/16 19:15 69 16 96 Nasal Cannula 2.0 04/13/16 19:00 37.1 66 142/59 04/13/16 18:00 59 137/59 04/13/16 17:45 59 147/57 04/13/16 17:30 59 141/54 04/13/16 17:15 66 149/60 Physical Exam General Appearance: no apparent distress Respiratory/Chest: no respiratory distress, no accessory muscle use, + decreased breath sounds (decreased air movement bilaterally) Cardiovascular: regular rate, rhythm, no edema, no murmur Abdomen: normal bowel sounds, non tender, soft Extremities: normal inspection, no pedal edema Neurologic/Psychiatric: no motor/sensory deficits, alert, normal mood/affect Laboratory Results Last 24 Hours Test 04/13/16 18:06 04/13/16 19:53 04/14/16 07:11 04/14/16 07:18 Bedside Glucose 156 mg/dl 167 mg/dl Prothrombin Time 24.7 SECONDS Prothromb Time International Ratio 2.2 White Blood Count 5.41 K/uL Red Blood Count 2.16 M/uL Hemoglobin 7.6 g/dL Hematocrit 23.4 % Mean Corpuscular Volume 108.3 fL Mean Corpuscular Hemoglobin 35.2 pg Mean Corpuscular Hemoglobin Concent 32.5 g/dl RDW Standard Deviation 60.3 fL RDW Coefficient of Variation 15.4 % Platelet Count 143 K/uL Mean Platelet Volume 10.1 fL Sodium Level 136 mmol/L Potassium Level 4.7 mmol/L Chloride Level 98 mmol/L Carbon Dioxide Level 24 mmol/L Anion Gap 14.0 mmol/L Blood Urea Nitrogen 63 mg/dl Creatinine 7.10 mg/dl Est Creatinine Clear Calc Drug Dose 8.9 ml/min Estimated GFR () 6.2 Estimated GFR (Non- 5.4 BUN/Creatinine Ratio 8.8 Random Glucose 180 mg/dl Calcium Level 8.0 mg/dl Magnesium Level 2.3 mg/dl Test 04/14/16 07:56 04/14/16 11:37 Bedside Glucose 200 mg/dl 137 mg/dl Assessment and Plan This is a 71 year old female with PMH of ESRD on HD, anemia of chronic disease, moderate COPD on nocturnal O2 with ongoing tobacco abuse, paroxysmal atrial fibrillation, insulin dependent DM2 presented with worsening shortness of breath Acute COPD exacerbation 04/14 * still has decreased air movement * continue solu-medrol at current dose * continue Levaquin * nebulizers PRN and O2 as needed * has required oxygen to maintain appropriate saturation 04/13 * requiring oxygen use continuously * CXR IMPRESSION: Cardiomegaly with slight prominence of interstitial markings. This favors mild pulmonary vascular congestion without overt edema. * continue solu-medrol today * nebulizers PRN * continue Levaquin ESRD on HD Anemia of Chronic Kidney Disease * ESRD with HD on Tuesday, , Tuesday * plan is for dialysis today * Anemia of chronic disease * Procrit today with dialysis * monitor H/H * Hgb = 7.7 * If Hgb < 7, will transfuse * appreciate nephrology input HTN * blood pressure improving * Continue home medications Insulin Dependent DM2 * Continue Lantus at reduced dose due to poor PO intake * Insulin sliding scale coverage * Ha1c = 5.0% - may need to decrease insulin dose as outpatient Paroxysmal Atrial Fibrillation * Currently NSR * Continue b-mariana * Continue Coumadin * Check INR in AM; INR today = 1.6, goal of 2-3 DVT ppx * Continue Coumadin FULL CODE
[2016-04-15] VITALS (24 sets, daily range): BP systolic 128–165; BP diastolic 52–87; PULSE 54–89; TEMP 36–36.8; O2SAT 93–100
[2016-04-15] MEDS: PIPERACILL/TAZOBAC IV 3.375 GM in DEXTROSE 5% 100ML IV SCH (04:11)
[2016-04-15] MEDS: ALBUT/IPRATROP 3MG/0.5MG NEB 3 ML VIAL INH SCH ×4 (07:03→20:08)
[2016-04-15 08:01] LABS: HEMATOCRIT 21.5 % (37-47); MEAN CELL VOLUME 107.5 fL (80-100); MEAN CORPUSCULAR HEMOGLOBIN 35.5 pg (25-34); MEAN PLATELET VOLUME 10.5 fL (7.4-10.4); PLATELET COUNT 117 K/uL (130-400); WHITE BLOOD COUNT 3.22 K/uL (4.8-10.8)
[2016-04-15 08:08] LABS: INR 2.2 (0.9-1.1); PROTHROMBIN TIME (PATIENT) 24.6 SECONDS (9.0-12.0)
[2016-04-15] MEDS: FLUTICASONE/SALMETEROL 250/50 (ADVAIR) 14 PUFF/1 INHALER INH SCH ×2 (08:50→22:01)
[2016-04-15] MEDS: PrednisoLONE ACET 1% OP SUSP 5 ML BTL OPL SCH (08:50)
[2016-04-15] MEDS: LIDOCAINE/PRILOCAINE 2.5% EA CRM EXT PRN (08:50)
[2016-04-15] MEDS: METHYLPREDNISOLONE IV 40 MG in SYRINGE 0 ML IV SCH ×2 (08:50→15:40)
[2016-04-15] MEDS: CALCIUM ACETATE 667MG GELCAP PO SCH ×3 (08:51→22:02)
[2016-04-15 08:55] LABS: BUN/CREATININE RATIO 9.6 (10-20); CALCIUM 8.4 mg/dl (8.5-10.1); CREATININE 9.3 mg/dl (0.60-1.20); MAGNESIUM 2.4 mg/dl (1.8-2.4); POTASSIUM 4.8 mmol/L (3.5-5.1)
[2016-04-15] MEDS: INSULIN GLARGINE SOLOSTAR 100 UNITS/ML 3 ML PEN SC SCH (08:55)
[2016-04-15] MEDS: INSULIN ASPART 100 UNITS/ML 3 ML PEN SC SCH ×4 (08:55→22:05)
[2016-04-15] MEDS ORDERED: EPOETIN ALFA 10,000 UNITS/ML VIAL IV. SCH (10:00)
--- NOTE | 2016-04-15 11:35 | Progress Note ---
Subjective Date of Service: Apr 15, 2016. Subjective Pt evaluation today including: conversation w/ patient, physical exam, lab review, review of studies, review of inpatient medication list Saw/examined the patient in dialysis she has a persistent cough worse at night breathing is okay, denies chest pain Problem List Medical Problems: (1) Chest pain Status: Acute (2) CHF (congestive heart failure) Status: Acute (3) COPD exacerbation Status: Acute (4) ESRD (end stage renal disease) on dialysis Status: Chronic (5) Hemoptysis Status: Acute (6) Hypoxemia Status: Acute (7) Hypoxia Status: Acute (8) Left lower lobe pneumonia Status: Acute (9) Pneumonia Status: Acute (10) Pulmonary congestion Status: Acute Review of Systems Constitutional: No chills, No fever Respiratory: + cough, + sputum, No shortness of breath Cardiac: No chest pain Heme: No abnormal bleeding/bruising Medications Current Inpatient Medications Medications (Trade) Dose Ordered Sig/Joan Route Start Time Stop Time Status Last Admin Dose Admin Acetaminophen (Tylenol Tab) 650 mg Q4H PRN PO 04/12/16 22:00 05/12/16 21:59 Ondansetron HCl (Zofran Inj) 4 mg Q6H PRN IV 04/12/16 22:00 05/12/16 21:59 Albuterol (Ventolin Hfa Inhaler) 2 puffs Q4 PRN INH 04/12/16 22:00 05/12/16 21:59 Amlodipine Besylate (Norvasc Tab) 10 mg QAM PO 04/13/16 09:00 05/13/16 08:59 04/14/16 08:27 10 MG Calcium Acetate (Phoslo Cap) 667 mg TID PO 04/13/16 09:00 05/13/16 08:59 04/15/16 08:51 667 MG Ergocalciferol (Vitamin D Cap) 50,000 interunit Q30D PO 05/06/16 09:00 06/05/16 08:59 Salmeterol Xinafoate/ Fluticasone (Advair Diskus 250/50 Inh) 2 puff BID INH 04/13/16 09:00 05/13/16 08:59 04/15/16 08:50 2 PUFF Furosemide (Lasix tab) 40 mg DAILY PO 04/13/16 09:00 05/13/16 08:59 04/14/16 08:28 40 MG Insulin Glargine (Lantus Solostar Pen) 13 unit QAM SC 04/13/16 09:00 05/13/16 08:59 04/15/16 08:55 13 UNIT Albuterol/ Ipratropium (Duoneb) 3 ml QIDR INH 04/13/16 08:00 05/13/16 07:59 04/15/16 07:03 3 ML Lidocaine/ Prilocaine (Emla 2.5% Crm) 1 ea UD PRN EXT 04/12/16 22:00 05/12/16 21:59 04/15/16 08:50 1 EA Losartan Potassium (coZAAR TAB) 100 mg QAM PO 04/13/16 09:00 05/13/16 08:59 04/14/16 08:26 100 MG Metoprolol Tartrate (Lopressor Tab) 37.5 mg BID PO 04/13/16 09:00 05/13/16 08:59 04/14/16 20:57 37.5 MG Prednisolone Acetate (Pred Forte 1% Oph Susp) 1 drops QAM OPL 04/13/16 09:00 05/13/16 08:59 04/15/16 08:50 1 DROPS Valacyclovir HCl (Valtrex Tab) 1,000 mg QAM PO 04/13/16 09:00 04/23/16 08:59 04/14/16 08:33 1,000 MG Warfarin Sodium (Coumadin Tab) 7.5 mg DAILY@1600 PO 04/12/16 23:00 05/12/16 22:59 04/14/16 16:06 7.5 MG Cyanocobalamin 1000 mcg 1,000 mcg Q30D IM 05/06/16 09:00 06/05/16 08:59 Methylprednisolone Sodium Succinate/ Syringe (Solu-Medrol IV/ Syringe) 0.64 ml @ 1.5 mls/min Q8H IV 04/13/16 08:00 05/13/16 07:59 04/15/16 08:50 1.5 MLS/MIN Insulin Aspart (novoLOG ASPART) SLIDING SCALE If C... ACHS SC 04/13/16 06:30 05/13/16 06:59 04/15/16 08:55 11 UNITS Glucose (Glucose 40% Gel) 15-30 GRAMS 15 GRAMS... UD PRN PO 04/12/16 22:15 05/12/16 22:14 Glucose (Glucose Chew Tab) 4-8 Tablets 4 Tabl... UD PRN PO 04/12/16 22:15 05/12/16 22:14 Dextrose (Dextrose 50% 50ML Syringe) 25-50ML OF 50% DW IV FOR... UD PRN IV 04/12/16 22:15 05/12/16 22:14 Glucagon (Glucagon Inj) 1 mg UD PRN SQ 04/12/16 22:15 05/12/16 22:14 Piperacillin Sod/ Tazobactam Sod (Consult) 1 ea UD PRN N/A 04/12/16 22:30 05/12/16 22:29 Albuterol/ Ipratropium 3 ml 3 ml Q2H PRN INH 04/12/16 22:15 05/12/16 22:14 04/13/16 01:55 3 ML Piperacillin Sod/ Tazobactam Sod/ Dextrose (Zosyn Iv/D5 100ml) 115 ml @ 28.75 mls/ hr Q12H IV 04/13/16 04:00 04/20/16 03:59 04/15/16 04:11 28.75 MLS/HR Clonidine HCl (Catapres Tab) 0.1 mg QAM PO 04/14/16 09:00 05/14/16 08:59 04/14/16 08:28 0.1 MG Vancomycin HCl (Consult) 1 ea UD PRN N/A 04/14/16 05:15 05/14/16 05:14 Epoetin Hakan (Procrit Inj) 10,000 units TODAY@1000 IV. 04/15/16 10:00 04/15/16 16:00 Objective Vital Signs Date Time Temp Pulse Resp B/P Pulse Ox O2 Delivery O2 Flow Rate FiO2 04/15/16 10:25 36.0 55 146/64 04/15/16 10:15 59 150/66 04/15/16 10:00 54 152/67 04/15/16 09:53 36.0 55 146/64 04/15/16 09:45 56 152/66 04/15/16 08:08 Nasal Cannula 3.0 04/15/16 07:30 36.5 55 20 152/71 99 04/15/16 07:03 59 16 97 Nasal Cannula 2.0 04/15/16 00:00 Nasal Cannula 2.0 04/14/16 23:49 36.7 59 20 135/67 98 Nasal Cannula 2.0 04/14/16 20:02 59 16 96 Nasal Cannula 2.0 04/14/16 16:20 Nasal Cannula 2.0 04/14/16 15:44 58 16 98 Nasal Cannula 2.0 04/14/16 15:38 36.8 75 20 138/67 94 Nasal Cannula 2.0 Physical Exam General Appearance: no apparent distress Respiratory/Chest: no respiratory distress, no accessory muscle use, + decreased breath sounds Cardiovascular: regular rate, rhythm, no edema, no murmur Abdomen: normal bowel sounds, non tender, soft Laboratory Results Last 24 Hours Test 04/14/16 11:37 04/15/16 07:25 Bedside Glucose 137 mg/dl White Blood Count 3.22 K/uL Red Blood Count 2.00 M/uL Hemoglobin 7.1 g/dL Hematocrit 21.5 % Mean Corpuscular Volume 107.5 fL Mean Corpuscular Hemoglobin 35.5 pg Mean Corpuscular Hemoglobin Concent 33.0 g/dl RDW Standard Deviation 60.2 fL RDW Coefficient of Variation 15.2 % Platelet Count 117 K/uL Mean Platelet Volume 10.5 fL Prothrombin Time 24.6 SECONDS Prothromb Time International Ratio 2.2 Sodium Level 136 mmol/L Potassium Level 4.8 mmol/L Chloride Level 97 mmol/L Carbon Dioxide Level 22 mmol/L Anion Gap 17.0 mmol/L Blood Urea Nitrogen 89 mg/dl Creatinine 9.30 mg/dl Est Creatinine Clear Calc Drug Dose 6.8 ml/min Estimated GFR () 4.5 Estimated GFR (Non- 3.9 BUN/Creatinine Ratio 9.6 Random Glucose 208 mg/dl Calcium Level 8.4 mg/dl Magnesium Level 2.4 mg/dl Random Vancomycin Level 22.9 mcg/ml Assessment and Plan This is a 71 year old female with PMH of ESRD on HD, anemia of chronic disease, moderate COPD on nocturnal O2 with ongoing tobacco abuse, paroxysmal atrial fibrillation, insulin dependent DM2 presented with worsening shortness of breath Acute COPD exacerbation 04/15 * continue solu-medrol today; will consider tapering tomorrow * continue Levaquin * nebulizers/oxygen PRN * added hycodan at bedtime for cough * repeat CXR in AM 04/14 * still has decreased air movement * continue solu-medrol at current dose * continue Levaquin * nebulizers PRN and O2 as needed * has required oxygen to maintain appropriate saturation 04/13 * requiring oxygen use continuously * CXR IMPRESSION: Cardiomegaly with slight prominence of interstitial markings. This favors mild pulmonary vascular congestion without overt edema. * continue solu-medrol today * nebulizers PRN * continue Levaquin ESRD on HD Anemia of Chronic Kidney Disease * ESRD with HD on Tuesday, , Tuesday * plan is for dialysis today * Anemia of chronic disease * Procrit today with dialysis * monitor H/H * Hgb = 7.7 * If Hgb < 7, will transfuse * appreciate nephrology input HTN * blood pressure improving * Continue home medications Insulin Dependent DM2 * Continue Lantus at reduced dose due to poor PO intake * Insulin sliding scale coverage * Ha1c = 5.0% - may need to decrease insulin dose as outpatient Paroxysmal Atrial Fibrillation * Currently NSR * Continue b-mariana * Continue Coumadin * Check INR in AM; INR today = 1.6, goal of 2-3 DVT ppx * Continue Coumadin FULL CODE
[2016-04-15] MEDS ORDERED: HYDROCODONE/HOMATROPINE SYRUP 5MG/1.5MG 5ML UDP PO PRN (11:45)
[2016-04-15] MEDS: CLONIDINE HCL 0.1 MG TAB PO SCH (13:36)
[2016-04-15] MEDS: FUROSEMIDE 40 MG TAB PO SCH (13:37)
[2016-04-15] MEDS: METOPROLOL TARTRATE 25 MG TAB PO SCH ×2 (13:37→22:03)
[2016-04-15] MEDS: AMLODIPINE BESYLATE 5 MG TAB PO SCH (13:38)
[2016-04-15] MEDS: LOSARTAN POTASSIUM 50 MG TAB PO SCH (13:38)
[2016-04-15] MEDS: WARFARIN SOD 7.5 MG TAB PO SCH (15:40)
--- NOTE | 2016-04-15 16:09 | Nephrology Progress Note ---
Nephrology Progress Note Date of Service: Apr 15, 2016. Subjective Patient is a 71 year old female with ESRD who presented with COPD exacerbation upon admission. Patient continues to have a good appetite. Only had one episode of loose stool this morning but otherwise no diarrhea. tolerated dialysis well today. states that her breathing is better in some aspects but still requires O2 and cough is not improved. Denies any nausea and appetite is good. Denies any chest pain. Edema is improved. Objective Date Time Temp Pulse Resp B/P Pulse Ox O2 Delivery O2 Flow Rate FiO2 04/15/16 15:49 68 16 98 Nasal Cannula 2.0 04/15/16 14:45 36.7 63 20 128/67 93 04/15/16 13:15 75 145/60 04/15/16 13:09 36.8 66 147/52 04/15/16 13:06 36.8 62 147/66 04/15/16 12:43 04/15/16 12:30 66 130/67 04/15/16 12:15 62 145/66 04/15/16 12:00 57 157/66 04/15/16 11:45 57 148/65 04/15/16 11:30 74 149/63 04/15/16 11:15 57 153/63 04/15/16 11:00 60 157/69 04/15/16 10:45 59 146/65 04/15/16 10:30 58 136/62 04/15/16 10:25 36.0 55 146/64 04/15/16 10:15 59 150/66 04/15/16 10:00 54 152/67 04/15/16 09:53 36.0 55 146/64 04/15/16 09:45 56 152/66 04/15/16 08:08 Nasal Cannula 3.0 04/15/16 07:30 36.5 55 20 152/71 99 04/15/16 07:03 59 16 97 Nasal Cannula 2.0 04/15/16 00:00 Nasal Cannula 2.0 04/14/16 23:49 36.7 59 20 135/67 98 Nasal Cannula 2.0 04/14/16 20:02 59 16 96 Nasal Cannula 2.0 04/14/16 16:20 Nasal Cannula 2.0 Physical Exam: General: Alert, no distress, well nourished and well developed Head: Normocephalic, No masses, lesions, tenderness, or abnormalities ENT: no scleral icterus, moist mucosal membranes Neck: Supple, no adenopathy Heart: Regular rate and rhythm, no murmurs, no gallops Lungs: reduced at bases Abdomen: Soft, Nontender, nondistended, +Bowel Sounds Extremities: No joint deformities, effusion, or inflammation, no clubbing +AVF, 1+ edema b/l le Neuro Exam: Alert and oriented x 3 with fluent speech, no focal motor/sensory deficits Current Inpatient Medications Medications (Trade) Dose Ordered Sig/Joan Route Start Time Stop Time Status Last Admin Dose Admin Acetaminophen (Tylenol Tab) 650 mg Q4H PRN PO 04/12/16 22:00 05/12/16 21:59 Ondansetron HCl (Zofran Inj) 4 mg Q6H PRN IV 04/12/16 22:00 05/12/16 21:59 Albuterol (Ventolin Hfa Inhaler) 2 puffs Q4 PRN INH 04/12/16 22:00 05/12/16 21:59 Amlodipine Besylate (Norvasc Tab) 10 mg QAM PO 04/13/16 09:00 05/13/16 08:59 04/15/16 13:38 10 MG Calcium Acetate (Phoslo Cap) 667 mg TID PO 04/13/16 09:00 05/13/16 08:59 04/15/16 13:36 667 MG Ergocalciferol (Vitamin D Cap) 50,000 interunit Q30D PO 05/06/16 09:00 06/05/16 08:59 Salmeterol Xinafoate/ Fluticasone (Advair Diskus 250/50 Inh) 2 puff BID INH 04/13/16 09:00 05/13/16 08:59 04/15/16 08:50 2 PUFF Furosemide (Lasix tab) 40 mg DAILY PO 04/13/16 09:00 05/13/16 08:59 04/15/16 13:37 40 MG Insulin Glargine (Lantus Solostar Pen) 13 unit QAM SC 04/13/16 09:00 05/13/16 08:59 04/15/16 08:55 13 UNIT Albuterol/ Ipratropium (Duoneb) 3 ml QIDR INH 04/13/16 08:00 05/13/16 07:59 04/15/16 15:49 3 ML Lidocaine/ Prilocaine (Emla 2.5% Crm) 1 ea UD PRN EXT 04/12/16 22:00 05/12/16 21:59 04/15/16 08:50 1 EA Losartan Potassium (coZAAR TAB) 100 mg QAM PO 04/13/16 09:00 05/13/16 08:59 04/15/16 13:38 100 MG Metoprolol Tartrate (Lopressor Tab) 37.5 mg BID PO 04/13/16 09:00 05/13/16 08:59 04/15/16 13:37 37.5 MG Prednisolone Acetate (Pred Forte 1% Oph Susp) 1 drops QAM OPL 04/13/16 09:00 05/13/16 08:59 04/15/16 08:50 1 DROPS Valacyclovir HCl (Valtrex Tab) 1,000 mg QAM PO 04/13/16 09:00 04/23/16 08:59 04/15/16 13:38 1,000 MG Warfarin Sodium (Coumadin Tab) 7.5 mg DAILY@1600 PO 04/12/16 23:00 05/12/16 22:59 04/14/16 16:06 7.5 MG Cyanocobalamin 1000 mcg 1,000 mcg Q30D IM 05/06/16 09:00 06/05/16 08:59 Methylprednisolone Sodium Succinate/ Syringe (Solu-Medrol IV/ Syringe) 0.64 ml @ 1.5 mls/min Q8H IV 04/13/16 08:00 05/13/16 07:59 04/15/16 08:50 1.5 MLS/MIN Insulin Aspart (novoLOG ASPART) SLIDING SCALE If C... ACHS SC 04/13/16 06:30 05/13/16 06:59 04/15/16 13:41 9 UNITS Glucose (Glucose 40% Gel) 15-30 GRAMS 15 GRAMS... UD PRN PO 04/12/16 22:15 05/12/16 22:14 Glucose (Glucose Chew Tab) 4-8 Tablets 4 Tabl... UD PRN PO 04/12/16 22:15 05/12/16 22:14 Dextrose (Dextrose 50% 50ML Syringe) 25-50ML OF 50% DW IV FOR... UD PRN IV 04/12/16 22:15 05/12/16 22:14 Glucagon (Glucagon Inj) 1 mg UD PRN SQ 04/12/16 22:15 05/12/16 22:14 Albuterol/ Ipratropium (Duoneb) 3 ml Q2H PRN INH 04/12/16 22:15 05/12/16 22:14 04/13/16 01:55 3 ML Clonidine HCl (Catapres Tab) 0.1 mg QAM PO 04/14/16 09:00 05/14/16 08:59 04/15/16 13:36 0.1 MG Hydrocodone Bit/ Homatropine Methylb (Hycodan Syrup) 5 ml HS PRN PO 04/15/16 11:45 04/29/16 11:44 Azithromycin (Zithromax Tab) 500 mg QAM PO 04/16/16 09:00 04/16/16 09:01 Azithromycin (Zithromax Tab) 250 mg QAM PO 04/17/16 09:00 04/22/16 09:01 Last 24 Hours Test 04/14/16 16:16 04/14/16 20:12 04/15/16 00:00 04/15/16 07:20 Bedside Glucose 129 mg/dl 231 mg/dl 223 mg/dl Stool Occult Blood POSITIVE Test 04/15/16 07:25 04/15/16 11:17 White Blood Count 3.22 K/uL Red Blood Count 2.00 M/uL Hemoglobin 7.1 g/dL Hematocrit 21.5 % Mean Corpuscular Volume 107.5 fL Mean Corpuscular Hemoglobin 35.5 pg Mean Corpuscular Hemoglobin Concent 33.0 g/dl RDW Standard Deviation 60.2 fL RDW Coefficient of Variation 15.2 % Platelet Count 117 K/uL Mean Platelet Volume 10.5 fL Prothrombin Time 24.6 SECONDS Prothromb Time International Ratio 2.2 Sodium Level 136 mmol/L Potassium Level 4.8 mmol/L Chloride Level 97 mmol/L Carbon Dioxide Level 22 mmol/L Anion Gap 17.0 mmol/L Blood Urea Nitrogen 89 mg/dl Creatinine 9.30 mg/dl Est Creatinine Clear Calc Drug Dose 6.8 ml/min Estimated GFR () 4.5 Estimated GFR (Non- 3.9 BUN/Creatinine Ratio 9.6 Random Glucose 208 mg/dl Calcium Level 8.4 mg/dl Magnesium Level 2.4 mg/dl Random Vancomycin Level 22.9 mcg/ml Bedside Glucose 184 mg/dl Date/Time Source Procedure Growth Status 04/14/16 17:30 Nasal MRSA DNA Surveillance Screen - Final Specimen Negative for MRSA by DNA Probe Complete 04/15/16 10:15 Stool C.difficile Toxin B Gene (PCR) - Final No C. difficile toxin B gene detected Complete 04/15/16 10:39 Sputum Expectorated Sputum Gram Stain Pending Nandini Batch 04/15/16 10:39 Sputum Expectorated Sputum Sputum Culture Pending Nandini Batch Assessment & Plan ESRD: Tolerated dialysis well today. Potassium adequate at 4.8. Patient is to continue dialysis on a // or as clinical condition dictates. volume status adequate. Anemia of ESRD: hgb 7.1. to continue to give procrit prn during dialysis and transfuse if needed. This patient was seen and treated with direct collaboration with Dr. Tijerina. Thank you for the opportunity to participate in this patient's care. Appreciate the Consult. ATTENDING NOTE: I performed a history and physical examination of the patient, including specifically on history- breathing continues to improve. tolerating dialysis well, on physical exam-mild edema , and my impression and plan are ESRD- continue dialysis t/h/s. anemia of renal failure-if hg continues to drop, may need blood transfusion, will continue procrit on dialysis. I have discussed the patient's management with Dee Dee Henley PA-C, Please refer to above note for the documented findings and plan of care. Ángel Tijerina DO
[2016-04-16] VITALS (8 sets, daily range): BP systolic 134–158; BP diastolic 49–73; PULSE 53–76; TEMP 36.3–36.5; O2SAT 95–100
[2016-04-16] MEDS: METHYLPREDNISOLONE IV 40 MG in SYRINGE 0 ML IV SCH ×4 (00:37→23:40)
[2016-04-16] MEDS: ALBUT/IPRATROP 3MG/0.5MG NEB 3 ML VIAL INH SCH ×4 (07:04→19:24)
[2016-04-16 08:01] LABS: HEMATOCRIT 22.2 % (37-47); MEAN CELL VOLUME 108.3 fL (80-100); MEAN CORPUSCULAR HEMOGLOBIN 35.1 pg (25-34); MEAN CORPUSCULAR HGB CONC 32.4 g/dl (32-36); MEAN PLATELET VOLUME 9.9 fL (7.4-10.4); PLATELET COUNT 124 K/uL (130-400); RED BLOOD COUNT 2.05 M/uL (4.2-5.4)
[2016-04-16 08:11] LABS: INR 2.6 (0.9-1.1); PROTHROMBIN TIME (PATIENT) 29.5 SECONDS (9.0-12.0)
--- NOTE | 2016-04-16 08:17 | DIAGNOSTIC IMAGING REPORT ---
CHEST 2 VIEWS ROUTINE HISTORY: Cough. COMPARISON: Chest 04/12/2016. FINDINGS: The heart remains mildly enlarged. No focal lung consolidations to suggest pneumonia. No evidence for pulmonary edema. No pleural effusions. No pneumothorax. IMPRESSION: No significant change compared to the prior study. Stable mild cardiomegaly. Electronically signed by: Dave Castañeda M.D. 04/16/2016 8:15 AM Dictated Date/Time: 04/16/2016 8:13 AM
[2016-04-16 08:48] LABS: BUN/CREATININE RATIO 8.6 (10-20); CALCIUM 8.3 mg/dl (8.5-10.1); CREATININE 7.3 mg/dl (0.60-1.20); MAGNESIUM 2.3 mg/dl (1.8-2.4); POTASSIUM 4.3 mmol/L (3.5-5.1)
[2016-04-16] MEDS: CALCIUM ACETATE 667MG GELCAP PO SCH ×3 (08:50→20:56)
[2016-04-16] MEDS: FUROSEMIDE 40 MG TAB PO SCH (08:50)
[2016-04-16] MEDS: CLONIDINE HCL 0.1 MG TAB PO SCH (08:51)
[2016-04-16] MEDS: METOPROLOL TARTRATE 25 MG TAB PO SCH ×2 (08:51→20:58)
[2016-04-16] MEDS: LOSARTAN POTASSIUM 50 MG TAB PO SCH (08:51)
[2016-04-16] MEDS: AMLODIPINE BESYLATE 5 MG TAB PO SCH (08:51)
[2016-04-16] MEDS: FLUTICASONE/SALMETEROL 250/50 (ADVAIR) 14 PUFF/1 INHALER INH SCH ×2 (08:52→20:58)
[2016-04-16] MEDS: PrednisoLONE ACET 1% OP SUSP 5 ML BTL OPL SCH (08:53)
[2016-04-16] MEDS ORDERED: AZITHROMYCIN 250 MG TAB PO SCH (09:00)
[2016-04-16] MEDS: INSULIN ASPART 100 UNITS/ML 3 ML PEN SC SCH ×4 (09:02→21:05)
[2016-04-16] MEDS: INSULIN GLARGINE SOLOSTAR 100 UNITS/ML 3 ML PEN SC SCH (09:03)
--- NOTE | 2016-04-16 10:30 | Nephrology Progress Note ---
Nephrology Progress Note Date of Service: Apr 16, 2016. Subjective This is a 71 year old female with PMH of ESRD on HD, anemia of chronic disease, moderate COPD on nocturnal O2 with ongoing tobacco abuse, paroxysmal atrial fibrillation, insulin dependent DM2 presented with worsening shortness of breath. Patient continues to have a good appetite. Reports that diarrhea is improved. stool occult was positive for blood. patient states that breathing during the day would be better but she has trouble sleeping due to cough. she states that the cough syrup given to her in the [employer] helped her finally get to sleep but then she was disoriented when she was awoken for lab work. she is hoping to be discharged soon but is still concerned for cough. Denies any chest pain or nausea. Edema is stable. Objective Date Time Temp Pulse Resp B/P Pulse Ox O2 Delivery O2 Flow Rate FiO2 04/16/16 09:58 Nasal Cannula 3.0 04/16/16 07:04 56 16 99 Nasal Cannula 2.0 04/16/16 07:02 36.5 53 21 152/73 100 Nasal Cannula 2.5 04/16/16 00:39 134/61 04/16/16 00:00 Nasal Cannula 2.0 04/15/16 23:14 36.5 61 21 165/66 100 04/15/16 19:05 74 16 98 Nasal Cannula 2.0 04/15/16 16:15 Nasal Cannula 2.0 04/15/16 15:49 68 16 98 Nasal Cannula 2.0 04/15/16 14:45 36.7 63 20 128/67 93 04/15/16 13:15 75 145/60 04/15/16 13:09 36.8 66 147/52 04/15/16 13:06 36.8 62 147/66 04/15/16 12:43 04/15/16 12:30 66 130/67 04/15/16 12:15 62 145/66 04/15/16 12:00 57 157/66 04/15/16 11:45 57 148/65 04/15/16 11:30 74 149/63 04/15/16 11:15 57 153/63 04/15/16 11:00 60 157/69 04/15/16 10:45 59 146/65 04/15/16 10:30 58 136/62 04/15/16 10:25 36.0 55 146/64 Physical Exam: General: Alert, no distress, well nourished and well developed Head: Normocephalic, No masses, lesions, tenderness, or abnormalities ENT: no scleral icterus, moist mucosal membranes Neck: Supple, no adenopathy Heart: Regular rate and rhythm, no murmurs, no gallops Lungs: reduced at bases-unchanged. on O2 Abdomen: Soft, Nontender, nondistended, +Bowel Sounds Extremities: No joint deformities, effusion, or inflammation, no clubbing +AVF, 1+ edema b/l le Neuro Exam: Alert and oriented x 3 with fluent speech, no focal motor/sensory deficits Current Inpatient Medications Medications (Trade) Dose Ordered Sig/Joan Route Start Time Stop Time Status Last Admin Dose Admin Acetaminophen (Tylenol Tab) 650 mg Q4H PRN PO 04/12/16 22:00 05/12/16 21:59 Ondansetron HCl (Zofran Inj) 4 mg Q6H PRN IV 04/12/16 22:00 05/12/16 21:59 Albuterol (Ventolin Hfa Inhaler) 2 puffs Q4 PRN INH 04/12/16 22:00 05/12/16 21:59 Amlodipine Besylate (Norvasc Tab) 10 mg QAM PO 04/13/16 09:00 05/13/16 08:59 04/16/16 08:51 10 MG Calcium Acetate (Phoslo Cap) 667 mg TID PO 04/13/16 09:00 05/13/16 08:59 04/16/16 08:50 667 MG Ergocalciferol (Vitamin D Cap) 50,000 interunit Q30D PO 05/06/16 09:00 06/05/16 08:59 Salmeterol Xinafoate/ Fluticasone (Advair Diskus 250/50 Inh) 2 puff BID INH 04/13/16 09:00 05/13/16 08:59 04/16/16 08:52 2 PUFF Furosemide (Lasix tab) 40 mg DAILY PO 04/13/16 09:00 05/13/16 08:59 04/16/16 08:50 40 MG Insulin Glargine (Lantus Solostar Pen) 13 unit QAM SC 04/13/16 09:00 05/13/16 08:59 04/16/16 09:03 13 UNIT Albuterol/ Ipratropium (Duoneb) 3 ml QIDR INH 04/13/16 08:00 05/13/16 07:59 04/16/16 07:04 3 ML Lidocaine/ Prilocaine (Emla 2.5% Crm) 1 ea UD PRN EXT 04/12/16 22:00 05/12/16 21:59 04/15/16 08:50 1 EA Losartan Potassium (coZAAR TAB) 100 mg QAM PO 04/13/16 09:00 05/13/16 08:59 04/16/16 08:51 100 MG Metoprolol Tartrate (Lopressor Tab) 37.5 mg BID PO 04/13/16 09:00 05/13/16 08:59 04/16/16 08:51 37.5 MG Prednisolone Acetate (Pred Forte 1% Oph Susp) 1 drops QAM OPL 04/13/16 09:00 05/13/16 08:59 04/16/16 08:53 1 DROPS Valacyclovir HCl (Valtrex Tab) 1,000 mg QAM PO 04/13/16 09:00 04/23/16 08:59 04/16/16 08:50 1,000 MG Warfarin Sodium (Coumadin Tab) 7.5 mg DAILY@1600 PO 04/12/16 23:00 05/12/16 22:59 04/15/16 15:40 7.5 MG Cyanocobalamin 1000 mcg 1,000 mcg Q30D IM 05/06/16 09:00 06/05/16 08:59 Methylprednisolone Sodium Succinate/ Syringe (Solu-Medrol IV/ Syringe) 0.64 ml @ 1.5 mls/min Q8H IV 04/13/16 08:00 05/13/16 07:59 04/16/16 08:54 1.5 MLS/MIN Insulin Aspart (novoLOG ASPART) SLIDING SCALE If C... ACHS SC 04/13/16 06:30 05/13/16 06:59 04/16/16 09:02 11 UNITS Glucose (Glucose 40% Gel) 15-30 GRAMS 15 GRAMS... UD PRN PO 04/12/16 22:15 05/12/16 22:14 Glucose (Glucose Chew Tab) 4-8 Tablets 4 Tabl... UD PRN PO 04/12/16 22:15 05/12/16 22:14 Dextrose (Dextrose 50% 50ML Syringe) 25-50ML OF 50% DW IV FOR... UD PRN IV 04/12/16 22:15 05/12/16 22:14 Glucagon (Glucagon Inj) 1 mg UD PRN SQ 04/12/16 22:15 05/12/16 22:14 Albuterol/ Ipratropium (Duoneb) 3 ml Q2H PRN INH 04/12/16 22:15 05/12/16 22:14 04/13/16 01:55 3 ML Clonidine HCl (Catapres Tab) 0.1 mg QAM PO 04/14/16 09:00 05/14/16 08:59 04/16/16 08:51 0.1 MG Hydrocodone Bit/ Homatropine Methylb (Hycodan Syrup) 5 ml HS PRN PO 04/15/16 11:45 04/29/16 11:44 04/16/16 00:41 5 ML Azithromycin (Zithromax Tab) 250 mg QAM PO 04/17/16 09:00 04/22/16 09:01 Last 24 Hours Test 04/15/16 11:17 04/15/16 16:20 04/15/16 20:08 04/16/16 06:45 Bedside Glucose 184 mg/dl 216 mg/dl 278 mg/dl White Blood Count 4.10 K/uL Red Blood Count 2.05 M/uL Hemoglobin 7.2 g/dL Hematocrit 22.2 % Mean Corpuscular Volume 108.3 fL Mean Corpuscular Hemoglobin 35.1 pg Mean Corpuscular Hemoglobin Concent 32.4 g/dl RDW Standard Deviation 59.3 fL RDW Coefficient of Variation 15.2 % Platelet Count 124 K/uL Mean Platelet Volume 9.9 fL Nucleated RBC Absolute Count (auto) 0.03 K/uL Nucleated Red Blood Cells % 0.7 % Prothrombin Time 29.5 SECONDS Prothromb Time International Ratio 2.6 Sodium Level 137 mmol/L Potassium Level 4.3 mmol/L Chloride Level 97 mmol/L Carbon Dioxide Level 26 mmol/L Anion Gap 14.0 mmol/L Blood Urea Nitrogen 63 mg/dl Creatinine 7.30 mg/dl Est Creatinine Clear Calc Drug Dose 8.3 ml/min Estimated GFR () 6.0 Estimated GFR (Non- 5.2 BUN/Creatinine Ratio 8.6 Random Glucose 201 mg/dl Calcium Level 8.3 mg/dl Magnesium Level 2.3 mg/dl Test 04/16/16 07:13 Bedside Glucose 225 mg/dl Assessment & Plan ESRD: Had dialysis yesterday. plan for tomorrow and continue on a // or as clinical condition dictates. volume status adequate. potassium pending. Anemia of ESRD: hgb 7.2. to continue to give procrit prn during dialysis and transfuse if needed. stool heme occult was Positive. Defer to primary service for evaluation and management of possible GI bleeding. This patient was seen and treated with direct collaboration with Dr. Tijerina. Thank you for the opportunity to participate in this patient's care. Appreciate the Consult. ATTENDING NOTE: I performed a history and physical examination of the patient, including specifically on history- pt continues to slowly improve but found to have heme positive stools, on physical exam-lungs with end expiratory wheeze and still tight, and my impression and plan are ESRD-plan on dialysis again tomorrow-may be able to go home after dialysis tomorrow depending on how she is feeling. she is hoping to go home. I have discussed the patient's management with Dee Dee Henley PA-C, Please refer to above note for the documented findings and plan of care. Ángel Tijerina DO
[2016-04-16] MEDS ORDERED: PANTOprazole INJ 40 MG in SYRINGE 0 ML IV SCH (11:00)
--- NOTE | 2016-04-16 11:44 | Progress Note ---
Subjective Date of Service: Apr 16, 2016. Subjective Pt evaluation today including: conversation w/ patient, physical exam, lab review, review of studies, review of inpatient medication list Saw/examined the patient in room 256 Breathing difficulty persists cough, worse at night Problem List Medical Problems: (1) Chest pain Status: Acute (2) CHF (congestive heart failure) Status: Acute (3) COPD exacerbation Status: Acute (4) ESRD (end stage renal disease) on dialysis Status: Chronic (5) Hemoptysis Status: Acute (6) Hypoxemia Status: Acute (7) Hypoxia Status: Acute (8) Left lower lobe pneumonia Status: Acute (9) Pneumonia Status: Acute (10) Pulmonary congestion Status: Acute Review of Systems Constitutional: No chills, No fever Respiratory: + cough, + shortness of breath, + sputum Cardiac: No chest pain, No edema, No palpitations Medications Current Inpatient Medications Medications (Trade) Dose Ordered Sig/Joan Route Start Time Stop Time Status Last Admin Dose Admin Acetaminophen (Tylenol Tab) 650 mg Q4H PRN PO 04/12/16 22:00 05/12/16 21:59 Ondansetron HCl (Zofran Inj) 4 mg Q6H PRN IV 04/12/16 22:00 05/12/16 21:59 Albuterol (Ventolin Hfa Inhaler) 2 puffs Q4 PRN INH 04/12/16 22:00 05/12/16 21:59 Amlodipine Besylate (Norvasc Tab) 10 mg QAM PO 04/13/16 09:00 05/13/16 08:59 04/16/16 08:51 10 MG Calcium Acetate (Phoslo Cap) 667 mg TID PO 04/13/16 09:00 05/13/16 08:59 04/16/16 08:50 667 MG Ergocalciferol (Vitamin D Cap) 50,000 interunit Q30D PO 05/06/16 09:00 06/05/16 08:59 Salmeterol Xinafoate/ Fluticasone (Advair Diskus 250/50 Inh) 2 puff BID INH 04/13/16 09:00 05/13/16 08:59 04/16/16 08:52 2 PUFF Furosemide (Lasix tab) 40 mg DAILY PO 04/13/16 09:00 05/13/16 08:59 04/16/16 08:50 40 MG Insulin Glargine (Lantus Solostar Pen) 13 unit QAM SC 04/13/16 09:00 05/13/16 08:59 04/16/16 09:03 13 UNIT Albuterol/ Ipratropium (Duoneb) 3 ml QIDR INH 04/13/16 08:00 05/13/16 07:59 04/16/16 11:27 3 ML Lidocaine/ Prilocaine (Emla 2.5% Crm) 1 ea UD PRN EXT 04/12/16 22:00 05/12/16 21:59 04/15/16 08:50 1 EA Losartan Potassium (coZAAR TAB) 100 mg QAM PO 04/13/16 09:00 05/13/16 08:59 04/16/16 08:51 100 MG Metoprolol Tartrate (Lopressor Tab) 37.5 mg BID PO 04/13/16 09:00 05/13/16 08:59 04/16/16 08:51 37.5 MG Prednisolone Acetate (Pred Forte 1% Oph Susp) 1 drops QAM OPL 04/13/16 09:00 05/13/16 08:59 04/16/16 08:53 1 DROPS Valacyclovir HCl (Valtrex Tab) 1,000 mg QAM PO 04/13/16 09:00 04/23/16 08:59 04/16/16 08:50 1,000 MG Warfarin Sodium (Coumadin Tab) 7.5 mg DAILY@1600 PO 04/12/16 23:00 05/12/16 22:59 04/15/16 15:40 7.5 MG Cyanocobalamin 1000 mcg 1,000 mcg Q30D IM 05/06/16 09:00 06/05/16 08:59 Methylprednisolone Sodium Succinate/ Syringe (Solu-Medrol IV/ Syringe) 0.64 ml @ 1.5 mls/min Q8H IV 04/13/16 08:00 05/13/16 07:59 04/16/16 08:54 1.5 MLS/MIN Insulin Aspart (novoLOG ASPART) SLIDING SCALE If C... ACHS SC 04/13/16 06:30 05/13/16 06:59 04/16/16 09:02 11 UNITS Glucose (Glucose 40% Gel) 15-30 GRAMS 15 GRAMS... UD PRN PO 04/12/16 22:15 05/12/16 22:14 Glucose (Glucose Chew Tab) 4-8 Tablets 4 Tabl... UD PRN PO 04/12/16 22:15 05/12/16 22:14 Dextrose (Dextrose 50% 50ML Syringe) 25-50ML OF 50% DW IV FOR... UD PRN IV 04/12/16 22:15 05/12/16 22:14 Glucagon (Glucagon Inj) 1 mg UD PRN SQ 04/12/16 22:15 05/12/16 22:14 Albuterol/ Ipratropium (Duoneb) 3 ml Q2H PRN INH 04/12/16 22:15 05/12/16 22:14 04/13/16 01:55 3 ML Clonidine HCl (Catapres Tab) 0.1 mg QAM PO 04/14/16 09:00 05/14/16 08:59 04/16/16 08:51 0.1 MG Hydrocodone Bit/ Homatropine Methylb (Hycodan Syrup) 5 ml HS PRN PO 04/15/16 11:45 04/29/16 11:44 04/16/16 00:41 5 ML Azithromycin 250 mg 250 mg QAM PO 04/17/16 09:00 04/22/16 09:01 Pantoprazole Sodium/Syringe (Protonix Inj/ Syringe) 10 ml @ 5 mls/min DAILY@11 IV 04/16/16 11:00 05/16/16 10:59 Objective Vital Signs Date Time Temp Pulse Resp B/P Pulse Ox O2 Delivery O2 Flow Rate FiO2 04/16/16 11:27 66 16 98 Nasal Cannula 2.0 04/16/16 09:58 Nasal Cannula 3.0 04/16/16 07:04 56 16 99 Nasal Cannula 2.0 04/16/16 07:02 36.5 53 21 152/73 100 Nasal Cannula 2.5 04/16/16 00:39 134/61 04/16/16 00:00 Nasal Cannula 2.0 04/15/16 23:14 36.5 61 21 165/66 100 04/15/16 19:05 74 16 98 Nasal Cannula 2.0 04/15/16 16:15 Nasal Cannula 2.0 04/15/16 15:49 68 16 98 Nasal Cannula 2.0 04/15/16 14:45 36.7 63 20 128/67 93 04/15/16 13:15 75 145/60 04/15/16 13:09 36.8 66 147/52 04/15/16 13:06 36.8 62 147/66 04/15/16 12:43 04/15/16 12:30 66 130/67 04/15/16 12:15 62 145/66 04/15/16 12:00 57 157/66 04/15/16 11:45 57 148/65 Physical Exam General Appearance: no apparent distress Respiratory/Chest: lungs clear, normal breath sounds, no respiratory distress, no accessory muscle use Cardiovascular: regular rate, rhythm, no edema, no murmur Abdomen: normal bowel sounds, non tender, soft Laboratory Results Last 24 Hours Test 04/15/16 16:20 04/15/16 20:08 04/16/16 06:45 04/16/16 07:13 Bedside Glucose 216 mg/dl 278 mg/dl 225 mg/dl White Blood Count 4.10 K/uL Red Blood Count 2.05 M/uL Hemoglobin 7.2 g/dL Hematocrit 22.2 % Mean Corpuscular Volume 108.3 fL Mean Corpuscular Hemoglobin 35.1 pg Mean Corpuscular Hemoglobin Concent 32.4 g/dl RDW Standard Deviation 59.3 fL RDW Coefficient of Variation 15.2 % Platelet Count 124 K/uL Mean Platelet Volume 9.9 fL Nucleated RBC Absolute Count (auto) 0.03 K/uL Nucleated Red Blood Cells % 0.7 % Prothrombin Time 29.5 SECONDS Prothromb Time International Ratio 2.6 Sodium Level 137 mmol/L Potassium Level 4.3 mmol/L Chloride Level 97 mmol/L Carbon Dioxide Level 26 mmol/L Anion Gap 14.0 mmol/L Blood Urea Nitrogen 63 mg/dl Creatinine 7.30 mg/dl Est Creatinine Clear Calc Drug Dose 8.3 ml/min Estimated GFR () 6.0 Estimated GFR (Non- 5.2 BUN/Creatinine Ratio 8.6 Random Glucose 201 mg/dl Calcium Level 8.3 mg/dl Magnesium Level 2.3 mg/dl Assessment and Plan This is a 71 year old female with PMH of ESRD on HD, anemia of chronic disease, moderate COPD on nocturnal O2 with ongoing tobacco abuse, paroxysmal atrial fibrillation, insulin dependent DM2 presented with worsening shortness of breath Acute COPD exacerbation 04/16 * solu-medrol 40mg q8 * added Teserrol Cornelius * Hycodan nocturnally * CXR = normal * Azithro 250mg for four days * nebulizers around the clock and PRN 04/15 * continue solu-medrol today; will consider tapering tomorrow * continue Levaquin * nebulizers/oxygen PRN * added hycodan at bedtime for cough * repeat CXR in AM 04/14 * still has decreased air movement * continue solu-medrol at current dose * continue Levaquin * nebulizers PRN and O2 as needed * has required oxygen to maintain appropriate saturation 04/13 * requiring oxygen use continuously * CXR IMPRESSION: Cardiomegaly with slight prominence of interstitial markings. This favors mild pulmonary vascular congestion without overt edema. * continue solu-medrol today * nebulizers PRN * continue Levaquin ESRD on HD Anemia of Chronic Kidney Disease 04/16 * anemia of chronic disease * procrit with dialysis * Hgb remains low at 7.2 * stool occult positive * added protonix * GI consult for further recommendations 04/15 * ESRD with HD on Tuesday, , Tuesday * plan is for dialysis today * Anemia of chronic disease * Procrit today with dialysis * monitor H/H * Hgb = 7.7 * If Hgb < 7, will transfuse * appreciate nephrology input HTN * blood pressure improving * Continue home medications Insulin Dependent DM2 * Continue Lantus at reduced dose due to poor PO intake * Insulin sliding scale coverage * Ha1c = 5.0% - may need to decrease insulin dose as outpatient Paroxysmal Atrial Fibrillation * Currently NSR * Continue b-mariana * Continue Coumadin * Check INR in AM; INR today = 1.6, goal of 2-3 DVT ppx * Continue Coumadin FULL CODE
[2016-04-16] MEDS ORDERED: BENZONATATE 100MG CAP PO ONE (11:45)
--- NOTE | 2016-04-16 15:20 | Gastrointestinal Consultation ---
Gastrointestinal Consultation Date of Consultation: Apr 16, 2016 Attending Physician: Mane Schneider Consulting Physician: Adriel Olson Reason for Consultation: Anemia, Heme + stools History of Present Illness Patient is a 71 year old female who is currently admitted for acute COPD exacerbation on Levaquin, Hx of also ESRD, chronic anemia, HTN, DM II, Afib on Coumadin seen for anemia and heme positive stools. Her baseline Hgb is around 9- 10. Upon admission was found to have Hgb around 7. She admits to have iron infusion with her dialysis, and also on oral iron supplement but when she described the dosing (50K unit qmonth), this sounds like Vit D supplement. She noticed having some nausea w/o vomiting this past weekend after eating at a [employer]. She said a family member also had similar GI symptoms after eating at the same place w her. She has also some loose stools, dark in color, and noticed bright red blood upon wiping. She suspected the blood may be from her rectum being excoriated w the frequent wiping. Her diarrhea symptoms did decrease. She tested negative for Cdiff. She has had prior EGD and Colonoscopy evals in 2016. EGD in 02/25/16 showed gastritis, and Hpylori positive on bx. She didn't recall ever getting treated for the Hpylori. Currently on Protonix 40mg daily. Her colonoscopy on 05/21/15 showed adenomatous and hyperplastic polyps, diverticulosis, hemorrhoids. Past Medical/Surgical History Medical Problems: (1) Chest pain Status: Acute (2) CHF (congestive heart failure) Status: Acute (3) COPD exacerbation Status: Acute (4) ESRD (end stage renal disease) on dialysis Status: Chronic (5) Hemoptysis Status: Acute (6) Hypoxemia Status: Acute (7) Hypoxia Status: Acute (8) Left lower lobe pneumonia Status: Acute (9) Pneumonia Status: Acute (10) Pulmonary congestion Status: Acute Past Medical History: See above. Past Surgical History: AV fistula formation Nasal polypectomy Appendectomy Cataract Surgery Cholecystectomy L Oophorectomy ASH Family History Diabetes mellitus FATHER MOTHER BROTHER FH: cancer BROTHER FH: heart disease FATHER Hypertension BROTHER Kidney disease BROTHER Social History Smoking Status: Current Every Day Smoker (states less than 1 ppd) Drug Use: none Marital Status: Housing Status: lives with family Occupation Status: retired Allergies Coded Allergies: No Known Allergies (Verified , 04/12/16) Current Medications Home Meds and Scripts Medications Dose Route/Sig Max Daily Dose Days Date Category Dose Instructions Zofran (Ondansetron Hcl) 8 Mg Tab 8 Mg PO Q8 PRN 04/12/16 Reported Cyanocobalamin 1,000 Mcg/Ml Inj 1,000 Mcg IM MONTHLY 04/12/16 Reported Lopressor (Metoprolol Tartrate) 25 Mg Tab 37.5 Mg PO BID 01/20/16 Reported Coumadin (Warfarin Sod) 5 Mg Tab 7.5 Mg PO DAILY 01/20/16 Reported Oxygen Gas 2.5 Liters NA HS 05/15/15 Reported Advair Diskus 250/50 60 Dose (Fluticasone Prop/Salmeterol) 1 Ea Aerp 2 Puff INH BID 05/15/15 Reported Catapres (Clonidine Hcl) 0.1 Mg Tab 0.1 Mg PO QAM 05/15/15 Reported Procrit (Epoetin Hakan) 10,000 Unit/ Inj UD 04/01/15 Reported per dialysis clinic Ventolin Inhaler (Albuterol) Aers 2 Puffs INH Q4 PRN 04/01/15 Reported USE PRN-BRING ALONG DAY OF SURG Duoneb (Ipratropium-Albuterol) 3 Ml Nebu 1 Treatment INH QID PRN 04/01/15 Reported Novolog Flexpen (Insulin Aspart) 100 Units/Ml Inj Units SQ UD 04/01/15 Reported Lasix (Furosemide) 40 Mg Tab 40 Mg PO DAILY 02/11/15 Reported HOLD AM SURGERY Cozaar (Losartan Potassium) 100 Mg Tab 100 Mg PO QAM 02/11/15 Reported Emla (Lidocaine-Prilocaine) 1 Cre Cre 1 Appln TOP UD 07/27/14 Reported apply to fistula prior to dialysis Vitamin D Cap (Ergocalciferol) 50,000 Interunit Cap 50,000 Interunit PO MONTHLY 07/27/14 Reported 9TH Phoslo 667 Mg (Calcium Acetate) 667 Mg Cap 1 Cap PO TID 03/06/14 Reported 1 capsule with meals and 1 cap with snacks. Valtrex (Valacyclovir Hcl) 1 Gm Tab 1 Gm PO QAM 09/08/13 Reported Pred Forte 1% Oph (Prednisolone Acetate) Susp 1 Drop OPL QAM 6/14/14 Reported Lantus (Insulin Glargine) Vial 26 Units SC QAM 09/08/13 Reported Norvasc (Amlodipine Besylate) 10 Mg Tab 10 Mg PO QAM 09/08/13 Reported Review of Systems Constitutional: No chills, No fever, No weakness Respiratory: No cough, No shortness of breath Cardiac: No chest pain, No edema Abdomen: + diarrhea, No nausea, No pain, No vomiting Physical Exam Date Time Temp Pulse Resp B/P Pulse Ox O2 Delivery O2 Flow Rate FiO2 04/16/16 14:57 36.3 62 18 137/49 98 Nasal Cannula 2.0 04/16/16 11:27 66 16 98 Nasal Cannula 2.0 04/16/16 09:58 Nasal Cannula 3.0 04/16/16 07:04 56 16 99 Nasal Cannula 2.0 04/16/16 07:02 36.5 53 21 152/73 100 Nasal Cannula 2.5 04/16/16 00:39 134/61 04/16/16 00:00 Nasal Cannula 2.0 04/15/16 23:14 36.5 61 21 165/66 100 04/15/16 19:05 74 16 98 Nasal Cannula 2.0 04/15/16 16:15 Nasal Cannula 2.0 04/15/16 15:49 68 16 98 Nasal Cannula 2.0 General Appearance: WD/WN, no apparent distress Eyes: normal inspection, PERRL, EOMI Neck: supple, no JVD, trachea midline Respiratory/Chest: normal breath sounds, no respiratory distress, no accessory muscle use Cardiovascular: regular rate, rhythm, no gallop, no murmur Abdomen: normal bowel sounds, non tender, soft Extremities: normal inspection, no pedal edema, no calf tenderness Neurologic/Psych: alert, normal mood/affect, oriented x 3 Skin: normal color, no jaundice, no rash Laboratory Results Last 24 Hours Test 04/15/16 16:20 04/15/16 20:08 04/16/16 06:45 04/16/16 07:13 Bedside Glucose 216 mg/dl 278 mg/dl 225 mg/dl White Blood Count 4.10 K/uL Red Blood Count 2.05 M/uL Hemoglobin 7.2 g/dL Hematocrit 22.2 % Mean Corpuscular Volume 108.3 fL Mean Corpuscular Hemoglobin 35.1 pg Mean Corpuscular Hemoglobin Concent 32.4 g/dl RDW Standard Deviation 59.3 fL RDW Coefficient of Variation 15.2 % Platelet Count 124 K/uL Mean Platelet Volume 9.9 fL Nucleated RBC Absolute Count (auto) 0.03 K/uL Nucleated Red Blood Cells % 0.7 % Prothrombin Time 29.5 SECONDS Prothromb Time International Ratio 2.6 Sodium Level 137 mmol/L Potassium Level 4.3 mmol/L Chloride Level 97 mmol/L Carbon Dioxide Level 26 mmol/L Anion Gap 14.0 mmol/L Blood Urea Nitrogen 63 mg/dl Creatinine 7.30 mg/dl Est Creatinine Clear Calc Drug Dose 8.3 ml/min Estimated GFR () 6.0 Estimated GFR (Non- 5.2 BUN/Creatinine Ratio 8.6 Random Glucose 201 mg/dl Calcium Level 8.3 mg/dl Magnesium Level 2.3 mg/dl Test 04/16/16 11:31 Bedside Glucose 321 mg/dl Impression Patient is a 71 year old female currently admitted for COPD exacerbation seen for anemia and heme positive stools. She did have slight decrease in her Hgb from baseline 9 to 7 during this admission. She reports dark and loose stools, some nausea which started this weekend after a [employer] meal. Cdiff negative but stool cx not obtained. She did notice bright red blood in scant amt when wiping, suspected her rectum to be excoriated from frequent wiping. Her chronic anemia is likely due to her ESRD. She may have contracted a bacterial gastroenteritis recently and heme positive stool may be from hemorrhoidal bleed from the diarrhea or rectal excoriation. She just had EGD and Colonoscopy evals less than a year ago. Did have Hpylori positive which did not get treatment for. Plan - Triple therapy for hx of Hpylori: Protonix 40mg BID, Amoxicillin 1g BID, Clarithromycin 500mg BID x 14 days - Defer repeat endoscopies at this time as no s/s of significant jennifer GI bleed , and pt just had EGD/Colonoscopy <1 year ago - Check stool cx - Continue current diet - Will sign off, call if new questions or concerns arise. I performed a history and physical examination of the patient. I have discussed the patient's case, impression and plan with TAYLOR Kyle on . Her note reflects my findings and plan. Triple H. pylori tx for 2 weeks. Adriel Olson MD
[2016-04-16] MEDS: WARFARIN SOD 7.5 MG TAB PO SCH (17:04)
[2016-04-16] MEDS: BENZONATATE 100MG CAP PO SCH ×2 (17:04→20:54)
[2016-04-16] MEDS: PANTOprazole SOD 40 MG TAB PO SCH (20:56)
[2016-04-16] MEDS ORDERED: CLARITHROMYCIN 500 MG TAB PO SCH (21:00)
[2016-04-16] MEDS ORDERED: CLARITHROMYCIN 250 MG TAB PO SCH (21:00)
[2016-04-16] MEDS ORDERED: AMOXICILLIN 500 MG CAP PO SCH (21:00)
[2016-04-17] VITALS (18 sets, daily range): BP systolic 142–169; BP diastolic 64–77; PULSE 63–73; TEMP 36.5–37.1; O2SAT 96–99
[2016-04-17] MEDS: ALBUT/IPRATROP 3MG/0.5MG NEB 3 ML VIAL INH SCH ×2 (06:56→11:36)
[2016-04-17] MEDS: PrednisoLONE ACET 1% OP SUSP 5 ML BTL OPL SCH (07:32)
[2016-04-17] MEDS: BENZONATATE 100MG CAP PO SCH ×2 (07:32→13:53)
[2016-04-17] MEDS: METHYLPREDNISOLONE IV 40 MG in SYRINGE 0 ML IV SCH (07:32)
[2016-04-17] MEDS: FLUTICASONE/SALMETEROL 250/50 (ADVAIR) 14 PUFF/1 INHALER INH SCH (07:33)
[2016-04-17 07:35] LABS: HEMATOCRIT 22.2 % (37-47); MEAN CELL VOLUME 105.2 fL (80-100); MEAN CORPUSCULAR HEMOGLOBIN 34.1 pg (25-34); MEAN CORPUSCULAR HGB CONC 32.4 g/dl (32-36); MEAN PLATELET VOLUME 10.2 fL (7.4-10.4); PLATELET COUNT 146 K/uL (130-400); RED BLOOD COUNT 2.11 M/uL (4.2-5.4); WHITE BLOOD COUNT 6.34 K/uL (4.8-10.8)
[2016-04-17] MEDS: INSULIN GLARGINE SOLOSTAR 100 UNITS/ML 3 ML PEN SC SCH (07:38)
[2016-04-17] MEDS: INSULIN ASPART 100 UNITS/ML 3 ML PEN SC SCH ×2 (07:39→14:27)
[2016-04-17 07:42] LABS: PROTHROMBIN TIME (PATIENT) 33.7 SECONDS (9.0-12.0)
[2016-04-17] MEDS ORDERED: EPOETIN ALFA 10,000 UNITS/ML VIAL IV. SCH (08:00)
[2016-04-17 08:13] LABS: BUN/CREATININE RATIO 9.2 (10-20); CALCIUM 8.4 mg/dl (8.5-10.1); CREATININE 9.1 mg/dl (0.60-1.20); POTASSIUM 4.7 mmol/L (3.5-5.1)
[2016-04-17] MEDS ORDERED: AZITHROMYCIN 250 MG TAB PO SCH (09:00)
--- NOTE | 2016-04-17 10:46 | Progress Note ---
Subjective Date of Service: Apr 17, 2016. Subjective Pt evaluation today including: conversation w/ patient, physical exam, lab review, review of studies, review of inpatient medication list Saw/examined the patient in dialysis She is doing okay nocturnal cough persists breathing status during the day is fine Problem List Medical Problems: (1) Chest pain Status: Acute (2) CHF (congestive heart failure) Status: Acute (3) COPD exacerbation Status: Acute (4) ESRD (end stage renal disease) on dialysis Status: Chronic (5) Hemoptysis Status: Acute (6) Hypoxemia Status: Acute (7) Hypoxia Status: Acute (8) Left lower lobe pneumonia Status: Acute (9) Pneumonia Status: Acute (10) Pulmonary congestion Status: Acute Review of Systems Constitutional: No chills, No fever Respiratory: + cough (worse at night), + shortness of breath, + sputum, No dyspnea at rest, No dyspnea on exertion, No hemoptysis, No wheezing Cardiac: No chest pain, No edema, No palpitations Abdomen: No constipation, No diarrhea, No nausea, No pain, No vomiting Medications Current Inpatient Medications Medications (Trade) Dose Ordered Sig/Joan Route Start Time Stop Time Status Last Admin Dose Admin Acetaminophen (Tylenol Tab) 650 mg Q4H PRN PO 04/12/16 22:00 05/12/16 21:59 Ondansetron HCl (Zofran Inj) 4 mg Q6H PRN IV 04/12/16 22:00 05/12/16 21:59 Albuterol (Ventolin Hfa Inhaler) 2 puffs Q4 PRN INH 04/12/16 22:00 05/12/16 21:59 Amlodipine Besylate (Norvasc Tab) 10 mg QAM PO 04/13/16 09:00 05/13/16 08:59 04/16/16 08:51 10 MG Calcium Acetate (Phoslo Cap) 667 mg TID PO 04/13/16 09:00 05/13/16 08:59 04/16/16 20:56 667 MG Ergocalciferol (Vitamin D Cap) 50,000 interunit Q30D PO 05/06/16 09:00 06/05/16 08:59 Salmeterol Xinafoate/ Fluticasone (Advair Diskus 250/50 Inh) 2 puff BID INH 04/13/16 09:00 05/13/16 08:59 04/17/16 07:33 2 PUFF Furosemide (Lasix tab) 40 mg DAILY PO 04/13/16 09:00 05/13/16 08:59 04/16/16 08:50 40 MG Insulin Glargine (Lantus Solostar Pen) 13 unit QAM SC 04/13/16 09:00 05/13/16 08:59 04/17/16 07:38 13 UNIT Albuterol/ Ipratropium (Duoneb) 3 ml QIDR INH 04/13/16 08:00 05/13/16 07:59 04/17/16 06:56 3 ML Lidocaine/ Prilocaine (Emla 2.5% Crm) 1 ea UD PRN EXT 04/12/16 22:00 05/12/16 21:59 04/15/16 08:50 1 EA Losartan Potassium (coZAAR TAB) 100 mg QAM PO 04/13/16 09:00 05/13/16 08:59 04/16/16 08:51 100 MG Metoprolol Tartrate (Lopressor Tab) 37.5 mg BID PO 04/13/16 09:00 05/13/16 08:59 04/16/16 20:58 37.5 MG Prednisolone Acetate (Pred Forte 1% Oph Susp) 1 drops QAM OPL 04/13/16 09:00 05/13/16 08:59 04/17/16 07:32 1 DROPS Valacyclovir HCl (Valtrex Tab) 1,000 mg QAM PO 04/13/16 09:00 04/23/16 08:59 04/16/16 08:50 1,000 MG Warfarin Sodium (Coumadin Tab) 7.5 mg DAILY@1600 PO 04/12/16 23:00 05/12/16 22:59 04/16/16 17:04 7.5 MG Cyanocobalamin 1000 mcg 1,000 mcg Q30D IM 05/06/16 09:00 06/05/16 08:59 Methylprednisolone Sodium Succinate/ Syringe (Solu-Medrol IV/ Syringe) 0.64 ml @ 1.5 mls/min Q8H IV 04/13/16 08:00 05/13/16 07:59 04/17/16 07:32 1.5 MLS/MIN Insulin Aspart (novoLOG ASPART) SLIDING SCALE If C... ACHS SC 04/13/16 06:30 05/13/16 06:59 04/17/16 07:39 15 UNITS Glucose (Glucose 40% Gel) 15-30 GRAMS 15 GRAMS... UD PRN PO 04/12/16 22:15 05/12/16 22:14 Glucose (Glucose Chew Tab) 4-8 Tablets 4 Tabl... UD PRN PO 04/12/16 22:15 05/12/16 22:14 Dextrose (Dextrose 50% 50ML Syringe) 25-50ML OF 50% DW IV FOR... UD PRN IV 04/12/16 22:15 05/12/16 22:14 Glucagon (Glucagon Inj) 1 mg UD PRN SQ 04/12/16 22:15 05/12/16 22:14 Albuterol/ Ipratropium (Duoneb) 3 ml Q2H PRN INH 04/12/16 22:15 05/12/16 22:14 04/13/16 01:55 3 ML Clonidine HCl (Catapres Tab) 0.1 mg QAM PO 04/14/16 09:00 05/14/16 08:59 04/16/16 08:51 0.1 MG Hydrocodone Bit/ Homatropine Methylb (Hycodan Syrup) 5 ml HS PRN PO 04/15/16 11:45 04/29/16 11:44 04/16/16 00:41 5 ML Azithromycin (Zithromax Tab) 250 mg QAM PO 04/17/16 09:00 04/22/16 09:01 Benzonatate (Tessalon Perles Cap) 100 mg TID PO 04/16/16 14:00 05/16/16 13:59 04/17/16 07:32 100 MG Pantoprazole Sodium (Protonix Tab) 40 mg BID PO 04/16/16 21:00 05/16/16 20:59 04/16/16 20:56 40 MG Amoxicillin (Amoxil Cap) 500 mg DAILY@2100 PO 04/16/16 21:00 04/30/16 20:59 04/16/16 20:55 500 MG Clarithromycin (Biaxin Tab) 250 mg DAILY@2100 PO 04/16/16 21:00 04/30/16 20:59 04/16/16 20:54 250 MG Epoetin Hakan (Procrit Inj) 10,000 units TODAY@0800 IV. 04/17/16 08:00 04/17/16 23:59 Objective Vital Signs Date Time Temp Pulse Resp B/P Pulse Ox O2 Delivery O2 Flow Rate FiO2 04/17/16 10:15 63 156/64 04/17/16 10:00 64 157/72 04/17/16 09:58 36.5 65 160/73 04/17/16 09:51 36.5 65 160/73 04/17/16 09:45 64 157/72 04/17/16 09:35 64 153/69 04/17/16 09:35 64 153/69 04/17/16 08:00 Room Air 04/17/16 07:20 36.5 72 20 152/77 96 Room Air 04/17/16 06:56 65 16 99 Nasal Cannula 04/17/16 00:00 Nasal Cannula 2.0 04/16/16 23:22 36.4 61 18 158/64 97 Room Air 04/16/16 19:24 65 16 95 Room Air 04/16/16 16:30 Nasal Cannula 2.0 04/16/16 16:06 76 16 98 Nasal Cannula 2.0 04/16/16 14:57 36.3 62 18 137/49 98 Nasal Cannula 2.0 04/16/16 11:27 66 16 98 Nasal Cannula 2.0 Physical Exam General Appearance: no apparent distress Respiratory/Chest: lungs clear, normal breath sounds, no respiratory distress, no accessory muscle use Cardiovascular: regular rate, rhythm, no edema, no murmur Abdomen: normal bowel sounds, non tender, soft Laboratory Results Last 24 Hours Test 04/16/16 11:31 04/16/16 15:57 04/16/16 19:52 04/17/16 07:15 Bedside Glucose 321 mg/dl 220 mg/dl 177 mg/dl White Blood Count 6.34 K/uL Red Blood Count 2.11 M/uL Hemoglobin 7.2 g/dL Hematocrit 22.2 % Mean Corpuscular Volume 105.2 fL Mean Corpuscular Hemoglobin 34.1 pg Mean Corpuscular Hemoglobin Concent 32.4 g/dl RDW Standard Deviation 56.9 fL RDW Coefficient of Variation 15.1 % Platelet Count 146 K/uL Mean Platelet Volume 10.2 fL Nucleated RBC Absolute Count (auto) 0.03 K/uL Nucleated Red Blood Cells % 0.5 % Prothrombin Time 33.7 SECONDS Prothromb Time International Ratio 3.0 Sodium Level 132 mmol/L Potassium Level 4.7 mmol/L Chloride Level 95 mmol/L Carbon Dioxide Level 22 mmol/L Anion Gap 15.0 mmol/L Blood Urea Nitrogen 84 mg/dl Creatinine 9.10 mg/dl Est Creatinine Clear Calc Drug Dose 6.6 ml/min Estimated GFR () 4.6 Estimated GFR (Non- 4.0 BUN/Creatinine Ratio 9.2 Random Glucose 248 mg/dl Calcium Level 8.4 mg/dl Test 04/17/16 07:30 Bedside Glucose 273 mg/dl Assessment and Plan This is a 71 year old female with PMH of ESRD on HD, anemia of chronic disease, moderate COPD on nocturnal O2 with ongoing tobacco abuse, paroxysmal atrial fibrillation, insulin dependent DM2 presented with worsening shortness of breath Acute COPD exacerbation 04/17 * will d/c home on a medrol dose anil * tessalon perles * will d/c antibiotics * nebulizers and O2 at home as needed 04/16 * solu-medrol 40mg q8 * added Tessalon Perles * Hycodan nocturnally * CXR = normal * Azithro 250mg for four days * nebulizers around the clock and PRN 04/15 * continue solu-medrol today; will consider tapering tomorrow * continue Levaquin * nebulizers/oxygen PRN * added hycodan at bedtime for cough * repeat CXR in AM 04/14 * still has decreased air movement * continue solu-medrol at current dose * continue Levaquin * nebulizers PRN and O2 as needed * has required oxygen to maintain appropriate saturation 04/13 * requiring oxygen use continuously * CXR IMPRESSION: Cardiomegaly with slight prominence of interstitial markings. This favors mild pulmonary vascular congestion without overt edema. * continue solu-medrol today * nebulizers PRN * continue Levaquin ESRD on HD Anemia of Chronic Kidney Disease 04/17 * appreciate GI input * clarithro, amxoil, PPI x 14 days * defer scope due to recent endoscopy * continue procrit with dialysis Tuesday, , Sunday 04/16 * anemia of chronic disease * procrit with dialysis * Hgb remains low at 7.2 * stool occult positive * added protonix * GI consult for further recommendations 04/15 * ESRD with HD on Tuesday, , Tuesday * plan is for dialysis today * Anemia of chronic disease * Procrit today with dialysis * monitor H/H * Hgb = 7.7 * If Hgb < 7, will transfuse * appreciate nephrology input HTN * blood pressure improving * Continue home medications Insulin Dependent DM2 * Continue Lantus at reduced dose due to poor PO intake * Insulin sliding scale coverage * Ha1c = 5.0% - may need to decrease insulin dose as outpatient Paroxysmal Atrial Fibrillation * Currently NSR * Continue b-mariana * Continue Coumadin * Check INR in AM; INR today = 1.6, goal of 2-3 DVT ppx * Continue Coumadin FULL CODE
[2016-04-17] MEDS ORDERED: PANT40TA PO ×2 (10:49→10:52)
[2016-04-17] MEDS ORDERED: BXN500 PO ×2 (10:49→10:52)
[2016-04-17] MEDS ORDERED: AMX500 PO ×2 (10:49→10:52)
[2016-04-17] MEDS ORDERED: METH4PAK PO (10:49)
[2016-04-17] MEDS ORDERED: BENZ100C7 PO (10:49)
--- NOTE | 2016-04-17 10:55 | Discharge Instructions ---
Discharge Instructions Admission Reason for Admission: Copd Exacerbation, Esrd On Hemodialysis Discharge Discharge Diagnosis / Problem: Acute COPD exacerbation Discharge Goals Goal(s): Decrease discomfort, Improve function Activity Recommendations Activity Limitations: resume your previous activity . Instructions / Follow-Up Instructions / Follow-Up Please follow-up with Dr. Armando on April 22 @ 1:10PM * You will be discharged on amoxicillin, clarithromycin and protonix twice a day for 14 days (this is for an H. pylori infection making your anemia worse) * You will be discharged on a medrol dosepak (steroids) * You will be discharged on Tessalon perles (for cough) Current Hospital Diet Patient's current hospital diet: Diabetes Type 2 Diet, Renal Diet Discharge Diet Recommended Diet: Renal Diet Pending Studies Studies pending at discharge: no Laboratory Results Hemoglobin A1c Test 04/13/16 05:20 Range/Units Estimated Average Glucose 97 mg/dl Hemoglobin A1c 5.0 4.5-5.6 % Medical Emergencies . Who to Call and When: Medical Emergencies: If at any time you feel your situation is an emergency, please call 911 immediately. . Non-Emergent Contact Non-Emergency issues call your: Primary Care Provider . . "Provider Documentation" section prepared by Mane Schneider. VTE Core Measure Inpt VTE Proph given/why not?: Warfarin (Coumadin)
--- NOTE | 2016-04-17 10:56 | Discharge Summary ---
Discharge Summary Admission Date: Apr 12, 2016 at 21:57 Discharge Date: Apr 17, 2016 Discharge Disposition: Home Principal Diagnosis: Acute COPD exacerbation Medication Reconciliation New Medications: Methylprednisolone (Medrol Dosepak) 4 Mg Pedro 1 PKT PO DAILY, #1 PKT Pantoprazole Sodium (Protonix) 40 Mg Tab 40 MG PO BID for 14 Days, #28 TAB Amoxicillin (Amoxicillin) 500 Mg Cap 500 MG PO BID for 14 Days, #28 CAP Benzonatate (Benzonatate) 100 Mg Cap 100 MG PO TID for 5 Days, #15 CAP Clarithromycin (Clarithromycin) 500 Mg Tab 250 MG PO BID for 14 Days, #28 TAB Continued Medications: Albuterol Inhaler (Ventolin Inhaler) Aers 2 PUFFS INH Q4 PRN for Wheezing USE PRN-BRING ALONG DAY OF SURG Amlodipine (Norvasc) 10 Mg Tab 10 MG PO QAM Calcium Acetate (Phoslo 667 Mg) 667 Mg Cap 1 CAP PO TID 1 capsule with meals and 1 cap with snacks. Clonidine Hcl (Catapres) 0.1 Mg Tab 0.1 MG PO QAM, TAB Cyanocobalamin (Cyanocobalamin) 1,000 Mcg/Ml Inj 1000 MCG IM MONTHLY Epoetin Hakan (Procrit) 10,000 Unit/ Inj UD per dialysis clinic Ergocalciferol (Vitamin D Cap) 50,000 Interunit Cap 81586 INTERUNIT PO MONTHLY 9TH Fluticasone Prop/Salmeterol (Advair Diskus 250/50 60 Dose) 1 Ea Aerp 2 PUFF INH BID, INHALER Furosemide (Lasix) 40 Mg Tab 40 MG PO DAILY HOLD AM SURGERY Insulin Aspart (Novolog Flexpen) 100 Units/Ml Inj UNITS SQ UD Insulin Glargine (Lantus) Vial 26 UNITS SC QAM, VIAL Ipratropium-Albuterol (Duoneb) 3 Ml Nebu 1 TREATMENT INH QID PRN for SOB/Wheezing Lidocaine-Prilocaine (Emla) 1 Cre Cre 1 APPLN TOP UD apply to fistula prior to dialysis Losartan Potassium (Cozaar) 100 Mg Tab 100 MG PO QAM Metoprolol Tartrate (Lopressor) (Lopressor) 25 Mg Tab 37.5 MG PO BID, TAB Ondansetron Hcl (Zofran) 8 Mg Tab 8 MG PO Q8 PRN for Nausea or Vomiting, TAB Oxygen (Oxygen) Gas 2.5 LITERS NA HS Prednisolone Acetate 1% Oph (Pred Forte 1% Oph) Susp 1 DROP OPL QAM Valacyclovir Hcl (Valtrex) 1 Gm Tab 1 GM PO QAM Warfarin Sod (Coumadin) 5 Mg Tab 7.5 MG PO DAILY Admission Information HPI (per Admitting provider): This is a 71 year old female with PMH of ESRD on HD, HTN, PAF on Coumadin, DM type 2, moderate COPD on chronic nocturnal O2, and other problems listed below who presents to the ED for SOB. Patient follows with Dr. Armando for primary care and Dr. Tijerina for nephrology. She gets dialysis -- Tue with last dialysis on Tuesday. Patient was recently treated with Levaquin as outpatient for CLOVIS pneumonia diagnosed on CT on ER visit 03/18/16. Symptoms had resolved. Then two days ago she became ill with SOB, wheezing, cough with yellow sputum, rhinorrhea, sneezing, watery eyes, chills, nausea, vomiting, and diarrhea. Breathing is now improved after neb treatment given en route. No further vomiting or diarrhea since yesterday evening. No PO intake today. She produces a small amount of urine. She denies fever, sore throat, ear ache, BETANCOURT, abdominal pain, edema, weight gain, abnormal bleeding. Patient did not take any of her medications for past 2 days except for Coumadin. Physical Exam (per Admitting): General Appearance: no apparent distress, + obese, + pertinent finding ( chronically ill 71 year old female) Head: normocephalic, atraumatic Eyes: normal inspection, PERRL, EOMI, sclerae normal ENT: hearing grossly normal, pharynx normal, + pertinent finding (no erythema or bulging of bilateral TM's) Neck: supple, no JVD, trachea midline Respiratory/Chest: no respiratory distress, no accessory muscle use, + decreased breath sounds, + pertinent finding (mild wheezing) Cardiovascular: regular rate, rhythm, no murmur Abdomen/GI: normal bowel sounds, non tender, soft Extremities/Musculoskelatal: normal inspection, no calf tenderness, normal capillary refill, no pedal edema Neurologic/Psych: alert, normal mood/affect, oriented x 3 Skin: normal color, warm/dry Hospital Course This is a 71 year old female with PMH of ESRD on HD, anemia of chronic disease, moderate COPD on nocturnal O2 with ongoing tobacco abuse, paroxysmal atrial fibrillation, insulin dependent DM2 presented with worsening shortness of breath Acute COPD exacerbation 04/17 * will d/c home on a medrol dose pedro * tessalon perles * will d/c antibiotics * nebulizers and O2 at home as needed 04/16 * solu-medrol 40mg q8 * added Tessalon Perles * Hycodan nocturnally * CXR = normal * Azithro 250mg for four days * nebulizers around the clock and PRN 04/15 * continue solu-medrol today; will consider tapering tomorrow * continue Levaquin * nebulizers/oxygen PRN * added hycodan at bedtime for cough * repeat CXR in AM 04/14 * still has decreased air movement * continue solu-medrol at current dose * continue Levaquin * nebulizers PRN and O2 as needed * has required oxygen to maintain appropriate saturation 04/13 * requiring oxygen use continuously * CXR IMPRESSION: Cardiomegaly with slight prominence of interstitial markings. This favors mild pulmonary vascular congestion without overt edema. * continue solu-medrol today * nebulizers PRN * continue Levaquin ESRD on HD Anemia of Chronic Kidney Disease 04/17 * appreciate GI input * clarithro, corrinexoil, PPI x 14 days * defer scope due to recent endoscopy * continue procrit with dialysis Tuesday, , Sunday 04/16 * anemia of chronic disease * procrit with dialysis * Hgb remains low at 7.2 * stool occult positive * added protonix * GI consult for further recommendations 04/15 * ESRD with HD on Tuesday, , Tuesday * plan is for dialysis today * Anemia of chronic disease * Procrit today with dialysis * monitor H/H * Hgb = 7.7 * If Hgb < 7, will transfuse * appreciate nephrology input HTN * blood pressure improving * Continue home medications Insulin Dependent DM2 * Continue Lantus at reduced dose due to poor PO intake * Insulin sliding scale coverage * Ha1c = 5.0% - may need to decrease insulin dose as outpatient Paroxysmal Atrial Fibrillation * Currently NSR * Continue b-mariana * Continue Coumadin * Check INR in AM; INR today = 1.6, goal of 2-3 DVT ppx * Continue Coumadin FULL CODE Total time spent on discharge = 45 minutes This includes examination of the patient, discharge planning, medication reconciliation, and communication with other providers. Discharge Instructions Please follow-up with Dr. Armando on April 22 @ 1:10PM * You will be discharged on amoxicillin, clarithromycin and protonix twice a day for 14 days (this is for an H. pylori infection making your anemia worse) * You will be discharged on a medrol dosepak (steroids) * You will be discharged on Tessalon perles (for cough)
[2016-04-17] MEDS: FUROSEMIDE 40 MG TAB PO SCH (13:54)
[2016-04-17] MEDS: LOSARTAN POTASSIUM 50 MG TAB PO SCH (13:54)
[2016-04-17] MEDS: CLONIDINE HCL 0.1 MG TAB PO SCH (13:55)
[2016-04-17] MEDS: AMLODIPINE BESYLATE 5 MG TAB PO SCH (13:55)
[2016-04-17] MEDS: METOPROLOL TARTRATE 25 MG TAB PO SCH (13:56)
[2016-04-17] MEDS: PANTOprazole SOD 40 MG TAB PO SCH (13:56)
[2016-04-17] MEDS: CALCIUM ACETATE 667MG GELCAP PO SCH ×2 (13:56→13:59)
[2016-05-06] MEDS ORDERED: ERGOCALCIFEROL 50,000 INTER.UNIT CAP PO SCH (09:00)
[2016-05-06] MEDS ORDERED: CYANOCOBALAMIN 1000 MCG/ML VIAL IM SCH (09:00)
[2016-05-06] MEDS ORDERED: LMTHP PO (16:08)
[2016-05-16] MEDS ORDERED: LEVO1TAB34 PO (12:22)
[2016-05-16] MEDS ORDERED: PRED10TA PO (12:22)
[2016-05-16] MEDS ORDERED: INSDGI SC (12:22)
[2016-05-16] MEDS ORDERED: COLE1TAB PO (12:57)
[2016-11-01] MEDS ORDERED: LVQ500 PO ×2 (11:20→11:35)
[2016-11-01] MEDS ORDERED: WARF5TAB90 PO ×2 (11:20→11:35)
[2016-11-01] MEDS ORDERED: LCTX PO ×2 (11:20→11:35)
== END 2016-04-17 14:40 | disposition home or self-care (01) | DRG 190 ==
LOC: ENRESERVTM → ENRESERVDT → EDBD 17:55 → C.EDB 17:57 → C.MS2W 21:57
PROVIDERS: ADMIT Internal Medicine; ATTEND Family Medicine
DX: J44.1 Chronic obstructive pulmonary disease with (acute) exacerbation (principal); N18.6 End stage renal disease; I50.32 Chronic diastolic (congestive) heart failure; I13.2 Hypertensive heart and chronic kidney disease with heart failure and with stage 5 chronic kidney disease, or end stage renal disease; B00.51 Herpesviral iridocyclitis; K86.2 Cyst of pancreas; I48.0 Paroxysmal atrial fibrillation; E87.5 Hyperkalemia; E78.5 Hyperlipidemia, unspecified; F17.210 Nicotine dependence, cigarettes, uncomplicated; E11.22 Type 2 diabetes mellitus with diabetic chronic kidney disease; D63.1 Anemia in chronic kidney disease; E66.9 Obesity, unspecified; Z68.33 Body mass index [BMI] 33.0-33.9, adult; R19.5 Other fecal abnormalities; M19.90 Unspecified osteoarthritis, unspecified site; R09.02 Hypoxemia; R19.7 Diarrhea, unspecified; I34.0 Nonrheumatic mitral (valve) insufficiency; L40.9 Psoriasis, unspecified; Z86.018 Personal history of other benign neoplasm; Z99.2 Dependence on renal dialysis; Z99.81 Dependence on supplemental oxygen; Z87.19 Personal history of other diseases of the digestive system; Z87.448 Personal history of other diseases of urinary system; Z79.01 Long term (current) use of anticoagulants; Z79.4 Long term (current) use of insulin; Z79.51 Long term (current) use of inhaled steroids; Z79.899 Other long term (current) drug therapy

== ENCOUNTER 2016-05-01 07:33 | Inpatient (IN) | payer OTHER ==
[2016-05-01] VITALS (31 sets, daily range): BP systolic 117–145; BP diastolic 44–82; PULSE 65–78; TEMP 36.1–37.6; O2SAT 92–100; Ht 167.6 cm; Wt 92.4 kg
[~2016-05-01] VITALS: Ht 167.6 cm; Wt 92.4 kg
[~2016-05-01 07:33] MED LIST changes: +AMX500 PO; +BENZ100C7 PO; +BXN500 PO; +CYNI1000 IM; -IRON INFUSIONS IV; +ONDA8TAB12 PO; +PANT40TA PO; -RBTUDL10 PO
[2016-05-01] MEDS ORDERED: VNTHFA/IN INH (07:59)
[2016-05-01] MEDS ORDERED: PRED1SUS3 OPL (07:59)
[2016-05-01] MEDS ORDERED: INSDGI SC (07:59)
[2016-05-01] MEDS ORDERED: ERGO500037 PO (07:59)
[2016-05-01] MEDS ORDERED: EPGI10M (07:59)
[2016-05-01] MEDS ORDERED: LOSA100T65 PO (08:02)
[2016-05-01] MEDS ORDERED: LSX40 PO (08:02)
[2016-05-01] MEDS ORDERED: LIDO1CRE58 TOP (08:02)
[2016-05-01] MEDS ORDERED: PRT/40 PO (08:06)
--- NOTE | 2016-05-01 08:06 | EMERGENCY ROOM VISIT NOTE ---
History Report prepared by Yohanaibjohn: Carol Ann Morse Under the Supervision of: Dr. Alok Willis M.D. First contact with patient: 07:53 Chief Complaint: RECTAL BLEEDING Stated Complaint: DIARRHEA PAST 2 WKS. W/SOME BLOOD Nursing Triage Summary: pt reports she has been treated for black stools with 2 antibiotics. sx for 2 weeks. today when she went to bathroom had bright red blood on tissue paper. pt is on coumadin. pt is dialysis pt, due today goes to [facility] pt feels bleeding could be from wiping so frequently History of Present Illness The patient is a 71 year old female who presents to the Emergency Room with complaints of persistent rectal bleeding that started this morning. She reports she has experienced diarrhea for the past 2 weeks and this morning "could not get off the commode". Her stool has been dark in color for the past two weeks and this morning she noticed "bright red blood" on the toilet tissue after she wiped. She complains of some numbness in her hands. She vomited once in the past 2 weeks and reports she has seen her doctor twice, and was placed on 2 different rounds of antibiotics. The patient is on daily Coumadin. She denies any chest pain or shortness of breath. She complains of feeling weak, but denies any dizziness. She is a Tuesday, , Tuesday kidney dialysis patient and the last time she was dialyzed was this past , 2 days ago. She denies any recent fevers, abdominal pain or pain or swelling in her legs. Source of History: patient Onset: this morning Position: other (rectum) Timing: other (persistent) Associated Symptoms: + diarrhea, + weakness, No SOB, No abdominal pain, No chest pain, No fevers Review of Systems See HPI for pertinent positives & negatives. A total of 10 systems reviewed and were otherwise negative. 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 Nurse's notes were reviewed and I agree with. Chronic anticoagulation with Coumadin Family History Diabetes mellitus FATHER MOTHER BROTHER FH: cancer BROTHER FH: heart disease FATHER Hypertension BROTHER Kidney disease BROTHER Social History Smoking Status: Current Every Day Smoker Drug Use: none Marital Status: Housing Status: lives with family Occupation Status: retired Current/Historical Medications Scheduled Albuterol Hfa (Ventolin Hfa), 1 PUFFS INH Q4 Amlodipine (Norvasc), 10 MG PO QAM Benzonatate (Benzonatate), 100 MG PO TID Clonidine Hcl (Catapres), 0.1 MG PO QAM Cyanocobalamin (Cyanocobalamin), 1,000 MCG IM MONTHLY Ergocalciferol (Vitamin D 72062 Unit), 50,000 UNIT PO MONTHLY Fluticasone Prop/Salmeterol (Advair Diskus 250/50 60 Dose), 2 PUFF INH BID Furosemide (Furosemide), 40 MG PO DAILY Insulin Aspart (Novolog Flexpen), UNITS SQ UD Insulin Glargine (Lantus), 26 UNITS SC QAM Losartan Potassium (Cozaar), 100 MG PO QAM Metoprolol Tartrate (Lopressor) (Lopressor), 37.5 MG PO BID Oxygen (Oxygen), 2.5 LITERS NA HS Pantoprazole (Pantoprazole Sodium), 1 TAB PO DAILY Prednisolone Acetate (Ophth) (Pred Forte 1% Oph), 1 DROPS OPL QAM Warfarin Sod (Coumadin), 5 MG PO DAILY Scheduled PRN Ipratropium-Albuterol (Duoneb), 1 TREATMENT INH QID PRN for SOB/Wheezing Ondansetron Hcl (Zofran), 8 MG PO Q8 PRN for Nausea or Vomiting Miscellaneous Medications Epoetin Hakan (Procrit) Lidocaine-Prilocaine (Ivxbfxdlg-Tnogtzuizn-Ytfc 2.5-2.5 %) Allergies Coded Allergies: No Known Allergies (Verified , 05/01/16) Physical Exam Vital Signs Date Time Temp Pulse Resp B/P Pulse Ox O2 Delivery O2 Flow Rate FiO2 05/01/16 09:28 71 05/01/16 09:23 71 22 119/51 97 Nasal Cannula 3.0 05/01/16 07:44 36.7 79 20 124/48 98 Nasal Cannula 3.0 Physical Exam General: Chronically ill-appearing, pale, older female, in no acute distress, breathing comfortably on room air. Normal speech HEENT: Normal cephalic atraumatic. Pupils are equal round and reactive to light. Sclera anicteric. Extraocular movements are intact. Oropharynx is pink with moist mucous membranes. No swelling of the mouth lips or tongue. Neck: Supple with a midline trachea. No meningeal signs or stiffness, no JVD or bruits. No Stridor. Chest: Clear to auscultation bilaterally. No wheezes or rhonchi. No increased work of breathing. Heart: regular rate and rhythm. Abdomen: Soft nontender, nondistended without rebound guarding or rigidity. Rectal: Black stool, guaiac positive. Extremities: IV in right antecubital fossa, dialysis fistula in left arm, palpable thrill. No cyanosis, clubbing or edema. No calf tenderness or assymetry Spine/Back. Non tender to palpation. No CVA tenderness Skin: Good turgor without rashes. Neurologic exam: Cranial nerves two through 12 are intact. Motor and sensation are intact and symmetrical throughout. Medical Decision & Procedures ER Provider Diagnostic Interpretation: This X-Ray was reviewed and interpreted by myself and the radiologist. CHEST ONE VIEW PORTABLE IMPRESSION: Negative chest. Electronically signed by: Stevo Sanchez M.D. 05/01/2016 8:27 AM Laboratory Results 05/01/16 07:25 Red Blood Count 1.24, Mean Corpuscular Volume 108.1, Mean Corpuscular Hemoglobin 35.5, Mean Corpuscular Hemoglobin Concent 32.8, Mean Platelet Volume 9.9, Neutrophils (%) (Auto) 78.7, Lymphocytes (%) (Auto) 11.4, Monocytes (%) ( Auto) 8.5, Eosinophils (%) (Auto) 0.7, Basophils (%) (Auto) 0.5, Neutrophils # ( Auto) 4.54, Lymphocytes # (Auto) 0.66, Monocytes # (Auto) 0.49, Eosinophils # ( Auto) 0.04, Basophils # (Auto) 0.03 05/01/16 07:25 Test 05/01/16 07:25 White Blood Count 5.77 K/uL (4.8-10.8) Red Blood Count 1.24 M/uL (4.2-5.4) Hemoglobin 4.4 g/dL (12.0-16.0) Hematocrit 13.4 % (37-47) Mean Corpuscular Volume 108.1 fL (80-100) Mean Corpuscular Hemoglobin 35.5 pg (25-34) Mean Corpuscular Hemoglobin Concent 32.8 g/dl (32-36) Platelet Count 181 K/uL (130-400) Mean Platelet Volume 9.9 fL (7.4-10.4) Neutrophils (%) (Auto) 78.7 % Lymphocytes (%) (Auto) 11.4 % Monocytes (%) (Auto) 8.5 % Eosinophils (%) (Auto) 0.7 % Basophils (%) (Auto) 0.5 % Neutrophils # (Auto) 4.54 K/uL (1.4-6.5) Lymphocytes # (Auto) 0.66 K/uL (1.2-3.4) Monocytes # (Auto) 0.49 K/uL (0.11-0.59) Eosinophils # (Auto) 0.04 K/uL (0-0.5) Basophils # (Auto) 0.03 K/uL (0-0.2) RDW Standard Deviation 74.5 fL (36.4-46.3) RDW Coefficient of Variation 18.7 % (11.5-14.5) Immature Granulocyte % (Auto) 0.2 % Immature Granulocyte # (Auto) 0.01 K/uL (0.00-0.02) Macrocytosis PRESENT Activated Partial Thromboplast Time 66.8 SECONDS (21.0-31.0) Partial Thromboplastin Ratio 2.6 Anion Gap 16.0 mmol/L (3-11) Est Creatinine Clear Calc Drug Dose 6.7 ml/min Estimated GFR () 4.6 Estimated GFR (Non- 3.9 BUN/Creatinine Ratio 9.6 (10-20) Calcium Level 7.0 mg/dl (8.5-10.1) Total Bilirubin 0.6 mg/dl (0.2-1) Direct Bilirubin < 0.1 mg/dl (0-0.2) Aspartate Amino Transf (AST/SGOT) 19 U/L (15-37) Alanine Aminotransferase (ALT/SGPT) 14 U/L (12-78) Alkaline Phosphatase 56 U/L (45-117) Total Protein 5.8 gm/dl (6.4-8.2) Albumin 2.3 gm/dl (3.4-5.0) Lipase 199 U/L (73-393) Laboratory studies as stated above per my review. Medications Administered Medications (Trade) Dose Ordered Sig/Joan Route Start Time Stop Time Status Last Admin Dose Admin Pantoprazole Sodium 80 mg/ Dextrose 120 ml @ 480 mls/hr NOW ONCE IV 05/01/16 09:15 05/01/16 09:29 DC 05/01/16 09:25 480 MLS/HR Pantoprazole Sodium 40 mg/ Dextrose 100 ml @ 20 mls/hr Q5H ONCE IV 05/01/16 09:00 05/01/16 13:59 DC 05/01/16 09:28 20 MLS/HR Phytonadione 10 mg/Sodium Chloride 51 ml @ 102 mls/hr ONE ONCE IV 05/01/16 09:30 05/01/16 09:59 DC 05/01/16 09:48 102 MLS/HR Prothrombin Complex Concent (Human)/Syringe (Kcentra/Syringe) 180 ml @ 10 mls/min NOW ONCE IV 05/01/16 09:45 05/01/16 10:02 DC 05/01/16 10:20 10 MLS/MIN ECG Indication: weakness Rate (beats per minute): 74 Rhythm: normal sinus (normal sinus rhythm) Findings: no acute ischemic change Change: no significant change (No significant change when compared to EKG from April 12, 2015) ED Course 0800: Past medical records reviewed. The patient was evaluated in room B7, and a complete history and physical examination were performed. 0845: Nursing informed me the patients hemoglobin did not register on initial i- stat lab tests. I will order a type and screen and perform a rectal exam. 0900: Pantoprazole Sodium 40 mg/Dextrose 100 ml @ 20 mls/hr IV. 0904: I discussed the patients case with [facility]. The patient will be further evaluated. 0915: Pantoprazole Sodium 80 mg/Dextrose 120 ml @ 480 mls/hr IV. 0922: I discussed the patients case with Dr. Hallman, [facility]. She will order FFP and the patient will be further evaluated. 0930: I reevaluated the patient. She is resting comfortably. I discussed my recommendation that she remain in the hospital for further evaluation and management and she verbalized complete understanding and agreement. Dr. Schneider and Dr. Tijerina, [facility], are both at the bedside. The patient will be further evaluated. 0930: Phytonadione 10 mg/Sodium Chloride 51 ml @ 102 mls/hr IV. Medical Decision Differential Diagnoses: GI bleed, anemia, electrolyte or metabolic abnormality, dialysis complication, infection. This patient comes in as described above. She was placed in room B7. She is here for increasing weakness. She's had diarrhea which has been dark and black. She does have a history of multiple medical problems including end- stage renal disease and A. fib. She is anticoagulated with Coumadin. She's been hemodynamically stable. I did a rectal exam in the presence of a female nurse track grinder and she has had melanotic stool that was guaiac positive. We did i-STAT labs and the hemoglobin did not register. She is typed and screened. The hemoglobin came back at 4.4 and she was type and crossed and we started a transfusion in the ER. Her INR also came back greater than 8. I did discuss the case with Dr. Yoo and she has ordered PCCs and I also ordered 10 mg of vitamin K. I discussed the case with Dr. Callahan, who will be admitting her as well as Dr. Tijerina from nephrology as she did miss dialysis today, they were both at the bedside. They agree with the plan. She is going to get transfused and hemodynamically monitored .she normally runs a very low hemoglobin at about the 7 range but she is significantly lower now. She appears to be tolerating this well so far but will get further blood. She will be admitted Consults Time Called: [phone] Consulting Physician: [facility] Returned Call: [phone] I discussed the patients case with [facility]. The patient will be further evaluated. Additional Consults: Time Called: [phone] Consulted Physician: Dr. Hallman, [facility] Returned Call: [phone] Additional Comments: I discussed the patients case with Dr. Hallman, [facility]. She will order FFP and the patient will be further evaluated. Time Called: [phone] Consulted Physician: [facility] Returned Call: [phone] Additional Comments: I discussed the patient's case with [facility]. The patient will be further evaluated. Impression Primary Impression: GI bleed Additional Impressions: End stage renal disease Supratherapeutic INR Critical Care Due to the patient's GI bleed and need for multiple blood products and reversal of anticoagulation and frequent reassessment with multiple consultants involved , I have personally spent greater than 45 minutes of critical care time in the direct management of this patient. This includes bedside care, interpretation of diagnostic studies, and testing, discussion with consultants, patient, and family members, and other required patient management activities. This 45 minutes is in excess of all separately billable procedures. Scribe Attestation The scribe's documentation has been prepared under my direction and personally reviewed by me in its entirety. I confirm that the note above accurately reflects all work, treatment, procedures, and medical decision making performed by me. Departure Information Dispostion Being Evaluated By Hospitalist Noam Cortes M.D. (PCP) Patient Instructions My [facility] Problem Qualifiers
--- NOTE | 2016-05-01 08:28 | DIAGNOSTIC IMAGING REPORT ---
CHEST ONE VIEW PORTABLE CLINICAL HISTORY: CHEST PAIN dyspnea COMPARISON STUDY: 04/16/2016 FINDINGS: The bones soft tissues and hemidiaphragms are normal. The cardiomediastinal silhouette is normal. The lungs are clear. The pulmonary vasculature is normal. IMPRESSION: Negative chest. Electronically signed by: Stevo Sanchez M.D. 05/01/2016 8:27 AM Dictated Date/Time: 05/01/2016 8:26 AM
[2016-05-01 08:57] LABS: HEMATOCRIT 13.4 % (37-47); MEAN CELL VOLUME 108.1 fL (80-100); MEAN CORPUSCULAR HEMOGLOBIN 35.5 pg (25-34); MEAN CORPUSCULAR HGB CONC 32.8 g/dl (32-36); MEAN PLATELET VOLUME 9.9 fL (7.4-10.4); PLATELET COUNT 181 K/uL (130-400); RED BLOOD COUNT 1.24 M/uL (4.2-5.4); WHITE BLOOD COUNT 5.77 K/uL (4.8-10.8)
[2016-05-01] MEDS ORDERED: PANTOprazole INJ 40 MG in DEXTROSE 5% 100ML IV ONE (09:00)
[2016-05-01 09:14] LABS: PARTIAL THROMBOPLASTIN RATIO 2.6; PROTHROMBIN TIME (PATIENT) > 100.0 SECONDS (9.0-12.0)
[2016-05-01] MEDS ORDERED: PANTOprazole INJ 80 MG in DEXTROSE 5% 100ML IV ONE (09:15)
[2016-05-01 09:19] LABS: INR > 8.0 (0.9-1.1)
[2016-05-01 09:24] LABS: ALKALINE PHOSPHATASE 56 U/L (45-117); ALT/SGPT 14 U/L (12-78); AST/SGOT 19 U/L (15-37); BLOOD UREA NITROGEN 88 mg/dl (7-18); BUN/CREATININE RATIO 9.6 (10-20); CARBON DIOXIDE 27 mmol/L (21-32); CHLORIDE 94 mmol/L (98-107); GLUCOSE 165 mg/dl (70-99); SODIUM 137 mmol/L (136-145)
[2016-05-01 09:25] LABS: BASO % 0.5 %; BASO ABS # 0.03 K/uL (0-0.2); COMPLETE YES; EOS % 0.7 %; IG% 0.2 %; LYMPH % 11.4 %; LYMPH ABS # 0.66 K/uL (1.2-3.4); MONO % 8.5 %; NEUT % 78.7 %
[2016-05-01] MEDS ORDERED: PHYTONADIONE INJ 10 MG in SODIUM CHLORIDE 0.9% 50ML 50 ML IV ONE (09:30)
[2016-05-01] MEDS ORDERED: PROTHROMBIN COMP KCENTRA IV ONE (09:45)
[2016-05-01] MEDS ORDERED: ACETAMINOPHEN 325 MG TAB PO PRN (09:45)
[2016-05-01] MEDS ORDERED: ALBUT/IPRATROP 3MG/0.5MG NEB 3 ML VIAL INH PRN (09:45)
[2016-05-01] MEDS ORDERED: ONDANSETRON INJ 2 MG/ML 2 ML VIAL IV PRN (09:45)
--- NOTE | 2016-05-01 10:25 | NEPHROLOGY CONSULTATION ---
DATE OF CONSULTATION: 05/01/2016 ATTENDING OF RECORD: Dr. Schneider. REASON FOR CONSULTATION: ESRD. HISTORY OF PRESENT ILLNESS: This 71-year-old female who dialyzes at the [facility] on Tuesdays, , and Saturdays; last dialysis treatment was , I evaluated the patient on . The patient was recently discharged from the hospital about 2 weeks ago with a COPD exacerbation. The patient does continue to actively smoke, has had diarrhea for a week prior to the hospitalization and has continued to have diarrhea since then. Stools are normally black. The patient is on Coumadin for paroxysmal aFib and does have occasional hemoptysis. The patient came in with generalized weakness and found to have a hemoglobin level of 4 and an INR greater than 8. The patient's appetite has been decreased and does not recall any active bleeding. Hemoglobin levels have been trending down as an outpatient despite being on Procrit with last hemoglobin of 7.9 and last checked about a week ago and have been increasing the dose of Procrit as an outpatient. With the INR greater than 8 and hemoglobin level of 4, the patient is getting 10 mg of IV vitamin K, 2 units of blood and a unit of FFP. The patient did get a liter of normal saline on her way to the hospital. The patient is awake, alert, answering questions properly, appears to be in her normal state of health. REVIEW OF SYSTEMS: Positive fatigue. Positive cough. Positive shortness of breath at baseline. No chest pain. No nausea, vomiting. Positive loose stools which she has had for several weeks. No rash or itching, no headaches, no blurry vision. All other review of systems is otherwise negative. PAST MEDICAL HISTORY: End-stage renal disease, hypertension, paroxysmal aFib on Coumadin, history of adrenal adenoma, COPD, hyperlipidemia, type 2 diabetes. PAST SURGICAL HISTORY: Appendectomy, cholecystectomy, hysterectomy, fistula placement. FAMILY HISTORY: Significant for diabetes and a brother with kidney disease. SOCIAL HISTORY: Active smoker, no alcohol, no drugs. Lives alone. CURRENT MEDICATIONS: Reviewed. PHYSICAL EXAMINATION: VITAL SIGNS: Temperature 36.7, pulse 71, respiratory rate 22, blood pressure 119/51, satting 97% on 3 liters. GENERAL: Awake, alert, oriented x3. EYES: No scleral icterus. LUNGS: Decreased breath sounds at the bases with some mild rales. CARDIAC: Regular rate and rhythm. ABDOMEN: Bowel sounds positive, soft, nontender. EXTREMITIES: No clubbing, cyanosis or edema. NEUROLOGICALLY: Nonfocal. DERMATOLOGICAL: No rash or ulcers noted. LABORATORIES: White count is 5.77, H\T\H 4.4 and 13.4, platelet count 181. Sodium is 137, potassium is 5, chloride is 94, bicarbonate is 27, BUN is 88, creatinine 9.2, glucose 165. Calcium is 7, albumin is 2.3, lipase 199. INR is once again greater than 8. IMAGING DATA: Chest x-ray shows normal chest. Lungs are clear. Pulmonary vasculature is normal. ASSESSMENT AND PLAN: 1. End-stage renal disease: Today is the patient's regular dialysis day. The patient's hemoglobin level is down to 4.4 and I was questioning whether to do dialysis today or not since I did not want to add any extra stress to the body. However, patient has already received a liter of fluids as an outpatient and is planning on getting 2 units of packed red blood cells as well as FFP and worried about volume overload as well as hyperkalemia. Potassium levels already at 5 before the blood. Plan is to dialyze to keep the potassium levels down and remove fluid that we were giving her from the blood products trying to keep her even and hopefully as the INR trends down and the hemoglobin levels improve, the patient will be more stable. 2. Anemia of renal failure. Hemoglobin level down to 4.4 with an INR of greater than 8. Question if the patient is actively bleeding. The patient always has dark stools. Hemoglobin levels have been trending down from anemia of renal failure, an element of Procrit resistance from recent chronic obstructive pulmonary disease exacerbation; however, cannot rule out active bleeding at this time. Will need to serial hg levels and will redose of Procrit and currently actively getting blood at this time. 3. Renal osteodystrophy. We will continue to follow the phosphorous levels; calcium level is low even when accounting for the albumin, it is in the mid 8s and with giving blood which will cause calcium levels to drop further. We will give a gram of calcium gluconate to help stabilize the calcium levels. We will check an ionized calcium tomorrow morning. I appreciate the consultation. Case was discussed with Dr. Schneider, primary hospitalist as well as the ER physician, dialysis nurse has been notified. [facility]
--- NOTE | 2016-05-01 10:28 | History and Physical ---
History & Physical Date & Time of Service: May 01, 2016 at 09:53 Chief Complaint: Diarrhea Past 2 Wks. W/Some Blood Primary Care Physician: Noam Armando M.D. History of Present Illness Source: patient, clinic records, hospital records This is a 71 year old female with PMH of ESRD on HD, anemia of chronic disease, moderate COPD on nocturnal O2 with ongoing tobacco abuse, paroxysmal atrial fibrillation on Coumadin, insulin dependent DM2 presented with +weakness, + diarrhea, some shortness of breath; was recently admitted here at [facility] 2 weeks prior for a COPD exacerbation and shortness of breath. Since her discharge, she was doing well with her breathing. She did notice diarrhea, which had worsened in the past week. She has been getting dialysis regularly since discharge, and as per nephrology, last blood work showed a Hgb of ~7.9. Hgb noted today to be 4.4. Patient is denying chest pain, breathing status close to baseline. No nausea, vomiting. +Diarrhea, dark and loose stools Past Medical/Surgical History Medical Problems: (1) A-fib Permanent Comment: paroxysmal Status: Chronic (2) Adrenal adenoma Status: Chronic (3) Anemia of chronic disease Status: Chronic (4) AV fistula Status: Chronic (5) COPD, moderate Permanent Comment: 2L O2 at home Status: Chronic (6) Diastolic dysfunction with chronic heart failure Permanent Comment: echo 07/2014 - EF 60-65%, grade II diastolic dysfunction echo 06/2015 - diastolic function normal Status: Chronic (7) DM type 2 (diabetes mellitus, type 2) Status: Chronic (8) Dyslipidemia Status: Chronic (9) ESRD (end stage renal disease) on dialysis Status: Chronic (10) H/O cardiovascular stress test Permanent Comment: 05/2013 - negative for ischemia Status: Chronic (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 (12) Hypertension Nos Status: Chronic (13) Moderate mitral regurgitation Permanent Comment: echo 06/2015 - calcified mitral valve, moderate MR Status: Chronic (14) Obesity Status: Chronic (15) Osteoarthritis Status: Chronic (16) Pancreatic cyst Status: Chronic (17) Psoriasis Status: Chronic (18) Renal cyst Status: Chronic Surgical Problems: (1) H/O colonoscopy Permanent Comment: 2005, hyperplastic polyps repeat in 10 years Status: Chronic (2) H/O nasal polypectomy Status: Chronic (3) History of cataract surgery Status: Chronic (4) S/P appendectomy Permanent Comment: 1971 Status: Chronic (5) S/P cholecystectomy Permanent Comment: 1971 Status: Chronic (6) S/P left oophorectomy Permanent Comment: 1981 Status: Chronic (7) S/P ASH (total abdominal hysterectomy) Permanent Comment: For Fibroids Status: Resolved Family History Diabetes mellitus FATHER MOTHER BROTHER FH: cancer BROTHER FH: heart disease FATHER Hypertension BROTHER Kidney disease BROTHER Social History Smoking Status: Current Every Day Smoker Drug Use: none Marital Status: Housing status: lives alone Occupational Status: retired Immunizations History of Influenza Vaccine: Yes Influenza Vaccine Date: Dec 26, 2014 History of Tetanus Vaccine?: Yes Tetanus Immunization Date: August 04, 2010 History of Pneumococcal: Yes Pneumococcal Date: Feb 24, 2015 Multi-Drug Resistant Organisms History of MDRO: No Allergies Coded Allergies: No Known Allergies (Verified , 05/01/16) Home Medications Scheduled Albuterol Hfa (Ventolin Hfa), 1 PUFFS INH Q4 Amlodipine (Norvasc), 10 MG PO QAM Benzonatate (Benzonatate), 100 MG PO TID Clonidine Hcl (Catapres), 0.1 MG PO QAM Cyanocobalamin (Cyanocobalamin), 1,000 MCG IM MONTHLY Ergocalciferol (Vitamin D 57342 Unit), 50,000 UNIT PO MONTHLY Fluticasone Prop/Salmeterol (Advair Diskus 250/50 60 Dose), 2 PUFF INH BID Furosemide (Furosemide), 40 MG PO DAILY Insulin Aspart (Novolog Flexpen), UNITS SQ UD Insulin Glargine (Lantus), 26 UNITS SC QAM Losartan Potassium (Cozaar), 100 MG PO QAM Metoprolol Tartrate (Lopressor) (Lopressor), 37.5 MG PO BID Oxygen (Oxygen), 2.5 LITERS NA HS Pantoprazole (Pantoprazole Sodium), 1 TAB PO DAILY Prednisolone Acetate (Ophth) (Pred Forte 1% Oph), 1 DROPS OPL QAM Warfarin Sod (Coumadin), 5 MG PO DAILY Scheduled PRN Ipratropium-Albuterol (Duoneb), 1 TREATMENT INH QID PRN for SOB/Wheezing Ondansetron Hcl (Zofran), 8 MG PO Q8 PRN for Nausea or Vomiting Miscellaneous Medications Epoetin Hakan (Procrit) Lidocaine-Prilocaine (Jmqqmsbwb-Rthxivsmod-Riib 2.5-2.5 %) Review of Systems Constitutional: + fatigue, + weakness, No chills, No fever Respiratory: + dyspnea on exertion, + shortness of breath (close to baseline), No cough, No hemoptysis, No sputum Cardiovascular: No chest pain, No edema, No palpitations Abdomen: + diarrhea (dark and loose), No nausea, No pain, No vomiting Musculoskeletal: No joint pain, No muscle pain Neurologic: + numbness/tingling (bilateral hands) Hematologic / Lymphatic: No abnormal bleeding/bruising Physical Exam Vital Signs Date Time Temp Pulse Resp B/P Pulse Ox O2 Delivery O2 Flow Rate FiO2 05/01/16 09:28 71 05/01/16 09:23 71 22 119/51 97 Nasal Cannula 3.0 05/01/16 07:44 36.7 79 20 124/48 98 Nasal Cannula 3.0 General Appearance: no apparent distress, + pertinent finding (+weak, +pale, cool skin) Head: normocephalic, atraumatic Eyes: normal inspection ENT: hearing grossly normal Respiratory/Chest: no respiratory distress, no accessory muscle use, + decreased breath sounds, + crackles (mild crackles at bases) Cardiovascular: regular rate, rhythm, no edema, no murmur Abdomen/GI: normal bowel sounds, non tender, soft Extremities/Musculoskelatal: no calf tenderness, normal capillary refill, no pedal edema Neurologic/Psych: no motor/sensory deficits, alert, normal mood/affect Diagnostics Laboratory Results Results Past 24 Hours Test 05/01/16 07:25 Range/Units White Blood Count 5.77 4.8-10.8 K/uL Red Blood Count 1.24 4.2-5.4 M/uL Hemoglobin 4.4 12.0-16.0 g/dL Hematocrit 13.4 37-47 % Mean Corpuscular Volume 108.1 80-100 fL Mean Corpuscular Hemoglobin 35.5 25-34 pg Mean Corpuscular Hemoglobin Concent 32.8 32-36 g/dl Platelet Count 181 130-400 K/uL Mean Platelet Volume 9.9 7.4-10.4 fL Neutrophils (%) (Auto) 78.7 % Lymphocytes (%) (Auto) 11.4 % Monocytes (%) (Auto) 8.5 % Eosinophils (%) (Auto) 0.7 % Basophils (%) (Auto) 0.5 % Neutrophils # (Auto) 4.54 1.4-6.5 K/uL Lymphocytes # (Auto) 0.66 1.2-3.4 K/uL Monocytes # (Auto) 0.49 0.11-0.59 K/uL Eosinophils # (Auto) 0.04 0-0.5 K/uL Basophils # (Auto) 0.03 0-0.2 K/uL RDW Standard Deviation 74.5 36.4-46.3 fL RDW Coefficient of Variation 18.7 11.5-14.5 % Immature Granulocyte % (Auto) 0.2 % Immature Granulocyte # (Auto) 0.01 0.00-0.02 K/uL Macrocytosis PRESENT Prothrombin Time > 100.0 9.0-12.0 SECONDS Prothromb Time International Ratio > 8.0 0.9-1.1 Activated Partial Thromboplast Time 66.8 21.0-31.0 SECONDS Partial Thromboplastin Ratio 2.6 Sodium Level 137 136-145 mmol/L Potassium Level 5.0 3.5-5.1 mmol/L Chloride Level 94 98-107 mmol/L Carbon Dioxide Level 27 21-32 mmol/L Anion Gap 16.0 3-11 mmol/L Blood Urea Nitrogen 88 7-18 mg/dl Creatinine 9.20 0.60-1.20 mg/dl Est Creatinine Clear Calc Drug Dose 6.7 ml/min Estimated GFR () 4.6 Estimated GFR (Non- 3.9 BUN/Creatinine Ratio 9.6 10-20 Random Glucose 165 70-99 mg/dl Calcium Level 7.0 8.5-10.1 mg/dl Total Bilirubin 0.6 0.2-1 mg/dl Direct Bilirubin < 0.1 0-0.2 mg/dl Aspartate Amino Transf (AST/SGOT) 19 15-37 U/L Alanine Aminotransferase (ALT/SGPT) 14 12-78 U/L Alkaline Phosphatase 56 45-117 U/L Total Protein 5.8 6.4-8.2 gm/dl Albumin 2.3 3.4-5.0 gm/dl Lipase 199 73-393 U/L Diagnostic Radiology CHEST ONE VIEW PORTABLE CLINICAL HISTORY: CHEST PAIN dyspnea COMPARISON STUDY: 04/16/2016 FINDINGS: The bones soft tissues and hemidiaphragms are normal. The cardiomediastinal silhouette is normal. The lungs are clear. The pulmonary vasculature is normal. IMPRESSION: Negative chest. CXR normal EKG with occasional PVCs Normal EKG Impression Assessment and Plan This is a 71 year old female with PMH of ESRD on HD, anemia of chronic disease, moderate COPD on nocturnal O2 with ongoing tobacco abuse, paroxysmal atrial fibrillation on Coumadin, insulin dependent DM2 admitted secondary to anemia Anemia, multifactorial Hgb of 4.4 on arrival multifactorial: chronic kidney disease, Procrit resistance, possible GI source ( dark stools) in the ER: PPI bolus given, will transfuse two units of PRBCs patient was also given 10 mg of IV Vitamin K and PCC as per Dr. Hallman due to supratherapeutic INR appreciate nephrology input hemodialysis today with the transfusion procrit as per nephrology recheck H/H and INR four hours post-transfusion/dialysis Warfarin Induced Coagulopathy Supratherapeutic INR likely secondary to diarrhea appreciate ER and Dr. Gonzales input will give 10mg IV Vitamin K and PCC for every 3 units of PRBCs will give one of FFP for now, transfuse two units PRBCs and monitor Possible GI bleed patient presented with diarrhea, dark stools during previous admission, Hgb was ~ 7 with heme positive stools she has had endoscopy and colonoscopy recently was given triple therapy for H. pylori infection at that time for 14 days ( course completed) will consult GI for further recommendations ESRD on HD regular schedule of Tuesday, , Tuesday appreciate nephrology input for this patient will transfuse PRBCs today; with HD Procrit as per nephro monitor fluid status with transfusions Paroxysmal A. Fib patient takes Coumadin regularly hold Coumadin (may need to stop this altogether) Vitamin K and PCC as above continue b-mariana COPD uses nocturnal O2, now requiring during the day ongoing tobacco use continue home inhalers, may need nebulizers if breathing status worsens HTN hold amlodipine/clonidine/ARB continue b-mariana monitor BP with significant anemia restart meds when Hgb improves Insulin Dependent DM2 patient takes Lantus 26 units as well as Novolog sliding scale she is having diarrhea and decreased appetite will cut back on the Lantus and put in a sliding scale insulin DVT ppx SCDs FULL CODE VTE Prophylaxis VTE Risk Assessment Done? Y/N: Yes Risk Level: High
[2016-05-01] MEDS: INSULIN ASPART 100 UNITS/ML 3 ML PEN SC SCH ×3 (11:00→20:41)
[2016-05-01] MEDS ORDERED: GLUCOSE 10 TABS/TUBE PO PRN (11:45)
[2016-05-01] MEDS ORDERED: DEXTROSE 50% 50 ML SYR IV PRN (11:45)
[2016-05-01] MEDS ORDERED: GLUCAGON FOR INJ 1 MG VIAL SQ PRN (11:45)
[2016-05-01] MEDS ORDERED: GLUCOSE 40% GEL 15 GM TUBE PO PRN (11:45)
[2016-05-01] MEDS ORDERED: EPOETIN ALFA 10,000 UNITS/ML VIAL IV. SCH (12:00)
[2016-05-01] MEDS ORDERED: CALCIUM GLUCONATE 10% 1,000 MG in SODIUM CHLORIDE 0.9% 50ML 50 ML IV ONE (12:00)
[2016-05-01] MEDS: ALBUTEROL HFA 8 GM INHALER INH SCH ×3 (13:00→20:32)
[2016-05-01] MEDS: BENZONATATE 100MG CAP PO SCH ×2 (15:30→20:39)
[2016-05-01] MEDS ORDERED: NURSING VERBAL MED ORDER ONE ×2 (15:45→16:00)
[2016-05-01 16:59] LABS: INR 1.2 (0.9-1.1); PROTHROMBIN TIME (PATIENT) 12.6 SECONDS (9.0-12.0)
[2016-05-01 17:03] LABS: HEMATOCRIT 17.8 % (37-47)
--- NOTE | 2016-05-01 18:20 | GASTROINTESTINAL CONSULTATION ---
DATE OF CONSULTATION: 05/01/2016 DATE OF CONSULTATION: 05/01/2016. REQUESTING PHYSICIAN: Dr. Schneider. CHIEF COMPLAINT: Diarrhea. HISTORY OF PRESENT ILLNESS: The patient is a 71-year-old female with a past medical history significant for end-stage renal disease on dialysis, COPD, paroxysmal atrial fibrillation, diabetes who presented to the Emergency Room for evaluation of weakness noted during dialysis. She was found to have a low hemoglobin of approximately 4.4 from a baseline of 7.9. The family notes that she has had some dark stool at home and has been having worsening fatigue over the last 2-3 weeks. The patient has had numerous problems over the past few months and has been admitted on several occasions. She was most recently admitted about 2 weeks ago for problems with COPD, during which time she was found to have atrial fibrillation. She has been on Coumadin for several months now. The patient was given a short course of antibiotics as an outpatient. The family reports that she also has diarrhea numerous times per day that has been ongoing for approximately 2 weeks. She was seen by her primary care provider who performed studies for C. diff which were negative as an outpatient. PAST MEDICAL HISTORY: 1. Atrial fibrillation, paroxysmal. 2. Adrenal adenoma. 3. Anemia. 4. AV fistula. 5. COPD. 6. Congestive heart failure. 7. Diabetes. 8. Hypercholesterolemia. 9. End-stage renal disease on dialysis. 10. Hypertension. 11. Mitral regurgitation. 12. Obesity. 13. Osteoarthritis. 14. Renal cyst. 15. Pancreatic cyst. PAST SURGICAL HISTORY: 1. Colonoscopy in 2016 notable for several small polyps and internal hemorrhoids. 2. Upper endoscopy dated 02/25/2016 notable for mild gastritis, otherwise unremarkable. 3. AV fistula. 4. Appendectomy. 5. Cholecystectomy. 6. Oophorectomy. 7. Abdominal hysterectomy. SOCIAL HISTORY: The patient is a smoker. Denies alcohol use or drug use. FAMILY HISTORY: No history of colon cancer, stomach cancer or esophageal cancer. ALLERGIES: No drug allergies. OUTPATIENT MEDICATIONS: 1. Albuterol. 2. Amlodipine 10 mg daily. 3. Benzonatate 100 mg t.i.d. 4. Clonidine 0.1 mg daily. 5. Fluticasone. 6. Lasix 40 mg daily. 7. Insulin NovoLog daily. 8. Insulin Glargine 26 units q.a.m. 9. Losartan 100 mg daily. 10. Oxygen. 11. Metoprolol 37.5 mg twice daily. 12. Protonix 40 mg daily. 13. Coumadin per Coumadin clinic. REVIEW OF SYSTEMS: Difficult to obtain. CONSTITUTIONAL: The patient with weakness and fatigue. CARDIAC: No chest pain. PULMONARY: No shortness of breath. GASTROINTESTINAL: History of diarrhea. MUSCULOSKELETAL: No new joint pains. Patient with profound weakness. NEUROLOGIC: The patient with numbness and tingling reported in hands and feet. HEMATOLOGIC: History of Coumadin use and found to be supratherapeutic. EARS, NOSE, THROAT: No difficulty swallowing. DERMATOLOGY: No rashes noted by patient. NEUROLOGIC: No new headache noted by patient. PHYSICAL EXAMINATION: VITAL SIGNS: Temperature 37.6, pulse 75, respiratory rate 20, blood pressure is 132/65, pulse ox is 96% on 3 liters by nasal cannula. The patient is lethargic appearing and ill appearing. HEAD, EYES, EARS, NOSE, AND THROAT: No scleral icterus noted. No JVD noted. LUNGS: Delayed expiratory phase noted. No wheezing heard. CARDIAC: Regular rhythm with a systolic murmur heard. ABDOMEN: Soft, nontender. EXTREMITIES: No edema noted today. DERMATOLOGY: No spider nevi noted. LABORATORY DATA: White blood cell count 5.7, hemoglobin 4.4 on admission, hematocrit is 13.4, platelet count is 181. PT 100. INR 8.0. Chemistry: Sodium 137, potassium 5.0, BUN 88, creatinine 9.2, calcium 7.0, bilirubin 0.6, AST 19, ALT 14, alkaline phosphatase 56, albumin 2.3, lipase is 199. IMPRESSION: A 71-year-old female. Gastroenterology is consulted for evaluation of heme positive stool. This is most likely related to her supratherapeutic INR. As the patient has had a recent upper endoscopy and recent colonoscopy I would defer examination at this point in time unless she continues to manifest bleeding despite reversal of her anticoagulation over the next few days. The patient may benefit from evaluation of her small intestine as an outpatient such as a wireless capsule endoscopy. As part of this evaluation, I would suggest small bowel follow through once the patient is tolerant of this examination. I would also recommend an evaluation by cardiology to determine if Coumadin is actually needed for her as the patient and the family would prefer to be off the medication if possible. For the patient's diarrhea, I would suggest further stool studies to be performed and you may start the patient on Questran 4 grams per day. RECOMMENDATIONS for primary team: 1. Consider small bowel follow through. 2. Cardiology consultation. 3. Start Questran 4 grams per day. 4. Stool studies to include a repeat C. diff, stool culture, ova and parasites and Giardia. Please call with any questions or concerns, coverage to resume on Tuesday. (I tried to contact Dr. Schneider with the above suggestions). MTDD
[2016-05-01] MEDS: FLUTICASONE/SALMETEROL 250/50 (ADVAIR) 14 PUFF/1 INHALER INH SCH (20:39)
[2016-05-01] MEDS: PANTOprazole INJ 40 MG in SYRINGE 0 ML IV SCH (20:39)
[2016-05-01] MEDS: METOPROLOL TARTRATE 25 MG TAB PO SCH (20:40)
[2016-05-02] VITALS (17 sets, daily range): BP systolic 127–146; BP diastolic 45–71; PULSE 63–72; TEMP 36.6–37.7; O2SAT 95–100
[2016-05-02] MEDS: ALBUTEROL HFA 8 GM INHALER INH SCH ×4 (04:00→08:00)
--- NOTE | 2016-05-02 07:00 | Gastroenterology Progress Note ---
Progress Note Date of Service: May 02, 2016 Subjective Pt evaluation today including: conversation w/ patient, physical exam The patient notes she is feeling improved today. She still continues to have loose stool. I suggested a trial of Questran last evening but this does not appear to have been started by the hospitalist service. Review of Systems Constitutional: No chills, No fever, No sweats Respiratory: No cough, No wheezing Cardiac: No chest pain, No palpitations Medications Current Inpatient Medications Medications (Trade) Dose Ordered Sig/Joan Route Start Time Stop Time Status Last Admin Dose Admin Acetaminophen (Tylenol Tab) 650 mg Q4H PRN PO 05/01/16 09:45 05/31/16 09:44 05/01/16 19:43 650 MG Ondansetron HCl (Zofran Inj) 4 mg Q6H PRN IV 05/01/16 09:45 05/31/16 09:44 Albuterol (Ventolin Hfa Inhaler) 1 puffs Q4 INH 05/01/16 12:00 05/31/16 11:59 05/01/16 20:32 1 PUFFS Benzonatate (Tessalon Perles Cap) 100 mg TID PO 05/01/16 14:00 05/31/16 13:59 05/01/16 20:39 100 MG Salmeterol Xinafoate/ Fluticasone (Advair Diskus 250/50 Inh) 2 puff BID INH 05/01/16 21:00 05/31/16 20:59 05/01/16 20:39 2 PUFF Insulin Aspart (novoLOG ASPART) ACHS SC 05/01/16 11:00 05/31/16 10:59 05/01/16 20:41 2 UNITS Insulin Glargine (Lantus Solostar Pen) 12 unit QAM SC 05/02/16 09:00 06/01/16 08:59 Albuterol/ Ipratropium (Duoneb) 3 ml QID PRN INH 05/01/16 09:45 05/31/16 09:44 Metoprolol Tartrate (Lopressor Tab) 37.5 mg BID PO 05/01/16 21:00 05/31/16 20:59 05/01/16 20:40 37.5 MG Prednisolone Acetate (Pred Forte 1% Oph Susp) 1 drops QAM OPL 05/02/16 09:00 06/01/16 08:59 Glucose (Glucose 40% Gel) 15-30 GRAMS 15 GRAMS... UD PRN PO 05/01/16 11:45 05/31/16 11:44 Glucose (Glucose Chew Tab) 4-8 Tablets 4 Tabl... UD PRN PO 05/01/16 11:45 05/31/16 11:44 Dextrose (Dextrose 50% 50ML Syringe) 25-50ML OF 50% DW IV FOR... UD PRN IV 05/01/16 11:45 05/31/16 11:44 Glucagon 1 mg 1 mg UD PRN SQ 05/01/16 11:45 05/31/16 11:44 Pantoprazole Sodium/Syringe (Protonix Inj/ Syringe) 10 ml @ 5 mls/min BID@ IV 05/01/16 21:00 05/31/16 20:59 05/01/16 20:39 5 MLS/MIN Objective Vital Signs Date Time Temp Pulse Resp B/P Pulse Ox O2 Delivery O2 Flow Rate FiO2 05/02/16 04:17 37.2 70 22 139/61 99 Nasal Cannula 3.0 05/02/16 04:00 99 Nasal Cannula 3.0 05/02/16 00:00 96 Nasal Cannula 3.0 05/01/16 23:37 36.7 65 20 121/51 96 Nasal Cannula 2.0 05/01/16 20:33 37.3 73 18 121/63 93 3.0 05/01/16 20:00 95 Nasal Cannula 3.0 05/01/16 19:00 37.6 72 20 117/50 95 Nasal Cannula 2.0 05/01/16 18:29 37.2 75 21 129/49 99 3.0 05/01/16 17:59 37.3 73 20 129/52 99 3.0 05/01/16 17:40 37.3 75 20 132/65 96 3.0 05/01/16 16:00 Room Air 05/01/16 15:21 36.8 75 139/79 05/01/16 15:15 36.7 76 20 139/64 97 Nasal Cannula 2.0 05/01/16 14:45 74 144/61 05/01/16 14:30 74 145/71 05/01/16 14:15 74 134/63 05/01/16 14:00 74 145/65 05/01/16 13:45 75 140/64 05/01/16 13:31 73 138/82 05/01/16 13:30 73 138/82 05/01/16 13:15 72 137/65 05/01/16 13:00 69 138/60 05/01/16 12:45 71 141/69 05/01/16 12:30 72 137/66 05/01/16 12:30 36.1 70 20 137/66 100 3.0 05/01/16 12:22 37.2 68 125/57 05/01/16 12:15 70 126/58 05/01/16 12:15 37.2 69 20 126/58 99 3.0 05/01/16 12:00 70 131/49 05/01/16 11:55 68 05/01/16 11:31 37.2 70 20 125/51 97 3.0 05/01/16 11:29 37.2 71 20 125/51 97 Nasal Cannula 3.0 05/01/16 10:44 37.2 70 22 124/53 100 3.0 05/01/16 10:42 37.2 70 22 131/49 100 3.0 05/01/16 10:29 37.1 72 22 131/58 100 3.0 05/01/16 10:07 36.9 78 20 125/44 92 3.0 05/01/16 09:50 37.2 71 20 125/51 100 Nasal Cannula 3.0 05/01/16 09:28 71 05/01/16 09:23 71 22 119/51 97 Nasal Cannula 3.0 05/01/16 07:44 36.7 79 20 124/48 98 Nasal Cannula 3.0 Physical Exam Eyes: PERRL Neck: no JVD Respiratory/Chest: lungs clear Cardiovascular: + systolic murmur Abdomen: non tender, soft Extremities: non-tender Skin: no jaundice Laboratory Results Last 24 Hours Test 05/01/16 07:25 05/01/16 16:31 05/01/16 16:45 05/01/16 20:29 White Blood Count 5.77 K/uL Red Blood Count 1.24 M/uL Hemoglobin 4.4 g/dL 6.1 g/dL Hematocrit 13.4 % 17.8 % Mean Corpuscular Volume 108.1 fL Mean Corpuscular Hemoglobin 35.5 pg Mean Corpuscular Hemoglobin Concent 32.8 g/dl Platelet Count 181 K/uL Mean Platelet Volume 9.9 fL Neutrophils (%) (Auto) 78.7 % Lymphocytes (%) (Auto) 11.4 % Monocytes (%) (Auto) 8.5 % Eosinophils (%) (Auto) 0.7 % Basophils (%) (Auto) 0.5 % Neutrophils # (Auto) 4.54 K/uL Lymphocytes # (Auto) 0.66 K/uL Monocytes # (Auto) 0.49 K/uL Eosinophils # (Auto) 0.04 K/uL Basophils # (Auto) 0.03 K/uL RDW Standard Deviation 74.5 fL RDW Coefficient of Variation 18.7 % Immature Granulocyte % (Auto) 0.2 % Immature Granulocyte # (Auto) 0.01 K/uL Macrocytosis PRESENT Prothrombin Time > 100.0 SECONDS 12.6 SECONDS Prothromb Time International Ratio > 8.0 1.2 Activated Partial Thromboplast Time 66.8 SECONDS Partial Thromboplastin Ratio 2.6 Sodium Level 137 mmol/L Potassium Level 5.0 mmol/L Chloride Level 94 mmol/L Carbon Dioxide Level 27 mmol/L Anion Gap 16.0 mmol/L Blood Urea Nitrogen 88 mg/dl Creatinine 9.20 mg/dl Est Creatinine Clear Calc Drug Dose 6.7 ml/min Estimated GFR () 4.6 Estimated GFR (Non- 3.9 BUN/Creatinine Ratio 9.6 Random Glucose 165 mg/dl Calcium Level 7.0 mg/dl Total Bilirubin 0.6 mg/dl Direct Bilirubin < 0.1 mg/dl Aspartate Amino Transf (AST/SGOT) 19 U/L Alanine Aminotransferase (ALT/SGPT) 14 U/L Alkaline Phosphatase 56 U/L Total Protein 5.8 gm/dl Albumin 2.3 gm/dl Lipase 199 U/L Bedside Glucose 108 mg/dl 185 mg/dl Test 05/01/16 22:17 05/02/16 06:27 05/02/16 06:38 Stool Occult Blood POSITIVE Bedside Glucose 123 mg/dl Assessment and Plan Patient admitted with evidence of gastrointestinal bleeding likely from her over anticoagulation. Given her recent upper endoscopy and colonoscopy there are no plans to do an endoscopic examination at this time unless there is evidence of rebleeding off of anticoagulation. I would highly suggest a cardiology evaluation to determine her anticoagulation needs. For the patient' s diarrhea per stool studies are pending. I would suggest that we start Questran 4 g per day. I will leave this to the hospital service to start. Recommendations Please start Questran 4 g per day Await stool studies Monitor blood count Consider cardiology consultation for anticoagulation needs
[2016-05-02 07:02] LABS: HEMATOCRIT 18.2 % (37-47); MEAN CELL VOLUME 96.8 fL (80-100); MEAN CORPUSCULAR HGB CONC 34.1 g/dl (32-36); MEAN PLATELET VOLUME 9.6 fL (7.4-10.4); PLATELET COUNT 138 K/uL (130-400); RED BLOOD COUNT 1.88 M/uL (4.2-5.4); WHITE BLOOD COUNT 6.02 K/uL (4.8-10.8)
[2016-05-02 07:35] LABS: BUN/CREATININE RATIO 8.7 (10-20); CALCIUM 7.1 mg/dl (8.5-10.1); CREATININE 6.5 mg/dl (0.60-1.20)
[2016-05-02] MEDS: METOPROLOL TARTRATE 25 MG TAB PO SCH ×2 (07:58→20:34)
[2016-05-02] MEDS: FLUTICASONE/SALMETEROL 250/50 (ADVAIR) 14 PUFF/1 INHALER INH SCH ×2 (07:58→20:33)
[2016-05-02] MEDS: BENZONATATE 100MG CAP PO SCH ×3 (07:59→20:34)
[2016-05-02] MEDS: PrednisoLONE ACET 1% OP SUSP 5 ML BTL OPL SCH (07:59)
[2016-05-02] MEDS: PANTOprazole INJ 40 MG in SYRINGE 0 ML IV SCH ×2 (07:59→20:33)
[2016-05-02] MEDS: INSULIN GLARGINE SOLOSTAR 100 UNITS/ML 3 ML PEN SC SCH (08:02)
[2016-05-02] MEDS: INSULIN ASPART 100 UNITS/ML 3 ML PEN SC SCH ×4 (08:09→20:35)
[2016-05-02] MEDS ORDERED: NURSING VERBAL MED ORDER ONE (08:15)
[2016-05-02] MEDS: CHOLESTYRAMINE LIGHT 4 GM PKT PO SCH ×2 (10:14→22:15)
[2016-05-02] MEDS ORDERED: ALBUTEROL HFA 8 GM INHALER INH PRN (10:15)
--- NOTE | 2016-05-02 10:19 | Progress Note ---
Subjective Date of Service: May 02, 2016. Subjective Pt evaluation today including: conversation w/ patient, physical exam, lab review, review of studies, review of inpatient medication list Saw/examined the patient in room 212 +weakness +diarrhea denies shortness of breath, denies chest pain Problem List Medical Problems: (1) Chest pain Status: Acute (2) CHF (congestive heart failure) Status: Acute (3) COPD exacerbation Status: Acute (4) End stage renal disease Status: Acute (5) GI bleed Status: Acute (6) Hemoptysis Status: Acute (7) Hypoxemia Status: Acute (8) Hypoxia Status: Acute (9) Left lower lobe pneumonia Status: Acute (10) Pneumonia Status: Acute (11) Pulmonary congestion Status: Acute (12) Supratherapeutic INR Status: Acute Review of Systems Constitutional: + weakness, No chills, No fever Respiratory: + cough, + shortness of breath (at baseline), + sputum Cardiac: No chest pain, No edema, No palpitations Abdomen: + diarrhea, No nausea, No pain, No vomiting Medications Current Inpatient Medications Medications (Trade) Dose Ordered Sig/Joan Route Start Time Stop Time Status Last Admin Dose Admin Acetaminophen (Tylenol Tab) 650 mg Q4H PRN PO 05/01/16 09:45 05/31/16 09:44 05/01/16 19:43 650 MG Ondansetron HCl (Zofran Inj) 4 mg Q6H PRN IV 05/01/16 09:45 05/31/16 09:44 Benzonatate (Tessalon Perles Cap) 100 mg TID PO 05/01/16 14:00 05/31/16 13:59 05/02/16 07:59 100 MG Salmeterol Xinafoate/ Fluticasone (Advair Diskus 250/50 Inh) 2 puff BID INH 05/01/16 21:00 05/31/16 20:59 05/02/16 07:58 2 PUFF Insulin Aspart (novoLOG ASPART) ACHS SC 05/01/16 11:00 05/31/16 10:59 05/02/16 08:09 5 UNITS Insulin Glargine (Lantus Solostar Pen) 12 unit QAM SC 05/02/16 09:00 06/01/16 08:59 05/02/16 08:02 12 UNIT Albuterol/ Ipratropium (Duoneb) 3 ml QID PRN INH 05/01/16 09:45 05/31/16 09:44 Metoprolol Tartrate (Lopressor Tab) 37.5 mg BID PO 05/01/16 21:00 05/31/16 20:59 05/02/16 07:58 37.5 MG Prednisolone Acetate (Pred Forte 1% Oph Susp) 1 drops QAM OPL 05/02/16 09:00 06/01/16 08:59 05/02/16 07:59 1 DROPS Glucose (Glucose 40% Gel) 15-30 GRAMS 15 GRAMS... UD PRN PO 05/01/16 11:45 05/31/16 11:44 Glucose (Glucose Chew Tab) 4-8 Tablets 4 Tabl... UD PRN PO 05/01/16 11:45 05/31/16 11:44 Dextrose (Dextrose 50% 50ML Syringe) 25-50ML OF 50% DW IV FOR... UD PRN IV 05/01/16 11:45 05/31/16 11:44 Glucagon 1 mg 1 mg UD PRN SQ 05/01/16 11:45 05/31/16 11:44 Pantoprazole Sodium/Syringe (Protonix Inj/ Syringe) 10 ml @ 5 mls/min BID@09,21 IV 05/01/16 21:00 05/31/16 20:59 05/02/16 07:59 5 MLS/MIN Cholestyramine Resin (Questran Powder Light) 4 gm BID@10,22 PO 05/02/16 10:00 06/01/16 09:59 Albuterol (Ventolin Hfa Inhaler) 1 puffs Q4H PRN INH 05/02/16 10:15 06/01/16 10:14 Objective Vital Signs Date Time Temp Pulse Resp B/P Pulse Ox O2 Delivery O2 Flow Rate FiO2 05/02/16 10:07 37.2 63 20 127/61 99 3.0 05/02/16 07:57 37.3 71 16 130/66 98 2.0 05/02/16 04:17 37.2 70 22 139/61 99 Nasal Cannula 3.0 05/02/16 04:00 99 Nasal Cannula 3.0 05/02/16 00:00 96 Nasal Cannula 3.0 05/01/16 23:37 36.7 65 20 121/51 96 Nasal Cannula 2.0 05/01/16 20:33 37.3 73 18 121/63 93 3.0 05/01/16 20:00 95 Nasal Cannula 3.0 05/01/16 19:00 37.6 72 20 117/50 95 Nasal Cannula 2.0 05/01/16 18:29 37.2 75 21 129/49 99 3.0 05/01/16 17:59 37.3 73 20 129/52 99 3.0 05/01/16 17:40 37.3 75 20 132/65 96 3.0 05/01/16 16:00 Room Air 05/01/16 15:21 36.8 75 139/79 05/01/16 15:15 36.7 76 20 139/64 97 Nasal Cannula 2.0 05/01/16 14:45 74 144/61 05/01/16 14:30 74 145/71 05/01/16 14:15 74 134/63 05/01/16 14:00 74 145/65 05/01/16 13:45 75 140/64 05/01/16 13:31 73 138/82 05/01/16 13:30 73 138/82 05/01/16 13:15 72 137/65 05/01/16 13:00 69 138/60 05/01/16 12:45 71 141/69 05/01/16 12:30 72 137/66 05/01/16 12:30 36.1 70 20 137/66 100 3.0 05/01/16 12:22 37.2 68 125/57 05/01/16 12:15 70 126/58 05/01/16 12:15 37.2 69 20 126/58 99 3.0 05/01/16 12:00 70 131/49 05/01/16 11:55 68 05/01/16 11:31 37.2 70 20 125/51 97 3.0 05/01/16 11:29 37.2 71 20 125/51 97 Nasal Cannula 3.0 05/01/16 10:44 37.2 70 22 124/53 100 3.0 05/01/16 10:42 37.2 70 22 131/49 100 3.0 05/01/16 10:29 37.1 72 22 131/58 100 3.0 Physical Exam General Appearance: no apparent distress Respiratory/Chest: lungs clear, normal breath sounds, no respiratory distress, no accessory muscle use Cardiovascular: regular rate, rhythm, no edema, no murmur Abdomen: normal bowel sounds, non tender, soft Extremities: normal inspection, no pedal edema Neurologic/Psychiatric: no motor/sensory deficits, alert, normal mood/affect Laboratory Results Last 24 Hours Test 05/01/16 16:31 05/01/16 16:45 05/01/16 20:29 05/01/16 22:17 Bedside Glucose 108 mg/dl 185 mg/dl Hemoglobin 6.1 g/dL Hematocrit 17.8 % Prothrombin Time 12.6 SECONDS Prothromb Time International Ratio 1.2 Stool Occult Blood POSITIVE Test 05/02/16 06:27 05/02/16 06:38 White Blood Count 6.02 K/uL Red Blood Count 1.88 M/uL Hemoglobin 6.2 g/dL Hematocrit 18.2 % Mean Corpuscular Volume 96.8 fL Mean Corpuscular Hemoglobin 33.0 pg Mean Corpuscular Hemoglobin Concent 34.1 g/dl RDW Standard Deviation 68.8 fL RDW Coefficient of Variation 20.3 % Platelet Count 138 K/uL Mean Platelet Volume 9.6 fL Sodium Level 138 mmol/L Potassium Level 4.0 mmol/L Chloride Level 99 mmol/L Carbon Dioxide Level 28 mmol/L Anion Gap 11.0 mmol/L Blood Urea Nitrogen 57 mg/dl Creatinine 6.50 mg/dl Est Creatinine Clear Calc Drug Dose 9.0 ml/min Estimated GFR () 6.9 Estimated GFR (Non- 6.0 BUN/Creatinine Ratio 8.7 Random Glucose 116 mg/dl Calcium Level 7.1 mg/dl Magnesium Level 2.0 mg/dl Bedside Glucose 123 mg/dl Assessment and Plan This is a 71 year old female with PMH of ESRD on HD, anemia of chronic disease, moderate COPD on nocturnal O2 with ongoing tobacco abuse, paroxysmal atrial fibrillation on Coumadin, insulin dependent DM2 admitted secondary to anemia Anemia, multifactorial 2/5 Hgb up to 6.2 s/p 3 units PRBCs will transfuse another unit of PRBC recheck H/H four hours post-transfusion 2/4 Hgb of 4.4 on arrival multifactorial: chronic kidney disease, Procrit resistance, possible GI source ( dark stools) in the ER: PPI bolus given, will transfuse two units of PRBCs patient was also given 10 mg of IV Vitamin K and PCC as per Dr. Hallman due to supratherapeutic INR appreciate nephrology input hemodialysis today with the transfusion procrit as per nephrology recheck H/H and INR four hours post-transfusion/dialysis Warfarin Induced Coagulopathy Supratherapeutic INR 2/5 INR now down to 1.2 2/4 likely secondary to diarrhea appreciate ER and Dr. Gonzales input will give 10mg IV Vitamin K and PCC for every 3 units of PRBCs will give one of FFP for now, transfuse two units PRBCs and monitor Possible GI bleed 05/02 started on questran No scope pending 05/01 patient presented with diarrhea, dark stools during previous admission, Hgb was ~ 7 with heme positive stools she has had endoscopy and colonoscopy recently was given triple therapy for H. pylori infection at that time for 14 days ( course completed) will consult GI for further recommendations ESRD on HD regular schedule of Tuesday, , Tuesday appreciate nephrology input for this patient will transfuse PRBCs today; with HD Procrit as per nephro monitor fluid status with transfusions Paroxysmal A. Fib patient takes Coumadin regularly hold Coumadin (may need to stop this altogether) Vitamin K and PCC as above continue b-mariana COPD uses nocturnal O2, now requiring during the day ongoing tobacco use continue home inhalers, may need nebulizers if breathing status worsens HTN hold amlodipine/clonidine/ARB continue b-mariana monitor BP with significant anemia restart meds when Hgb improves Insulin Dependent DM2 patient takes Lantus 26 units as well as Novolog sliding scale she is having diarrhea and decreased appetite will cut back on the Lantus and put in a sliding scale insulin DVT ppx SCDs FULL CODE
--- NOTE | 2016-05-02 11:58 | Nephrology Progress Note ---
Nephrology Progress Note Date of Service: May 02, 2016. Subjective 71yo female with underlying copd who has had several weeks of diarrhea following a bronchitis/copd exacerbation presented with weakness and a hg of 4.4 and an inr of >8, given iv vitamin k and ffp and 2 units of prbcs and dialysis to help manage the volume and potassium load. this morning, getting two more units of blood and is much more alert and has more color. family in room with her and agrees that she looks better. main complaint is the continued diarrhea. Objective Date Time Temp Pulse Resp B/P Pulse Ox O2 Delivery O2 Flow Rate FiO2 05/02/16 11:27 37.3 65 18 132/63 99 2.0 05/02/16 10:25 37.0 63 20 132/65 100 3.0 05/02/16 10:07 37.2 63 20 127/61 99 3.0 05/02/16 07:57 37.3 71 16 130/66 98 2.0 05/02/16 04:17 37.2 70 22 139/61 99 Nasal Cannula 3.0 05/02/16 04:00 99 Nasal Cannula 3.0 05/02/16 00:00 96 Nasal Cannula 3.0 05/01/16 23:37 36.7 65 20 121/51 96 Nasal Cannula 2.0 05/01/16 20:33 37.3 73 18 121/63 93 3.0 05/01/16 20:00 95 Nasal Cannula 3.0 05/01/16 19:00 37.6 72 20 117/50 95 Nasal Cannula 2.0 05/01/16 18:29 37.2 75 21 129/49 99 3.0 05/01/16 17:59 37.3 73 20 129/52 99 3.0 05/01/16 17:40 37.3 75 20 132/65 96 3.0 05/01/16 16:00 Room Air 05/01/16 15:21 36.8 75 139/79 05/01/16 15:15 36.7 76 20 139/64 97 Nasal Cannula 2.0 05/01/16 14:45 74 144/61 05/01/16 14:30 74 145/71 05/01/16 14:15 74 134/63 05/01/16 14:00 74 145/65 05/01/16 13:45 75 140/64 05/01/16 13:31 73 138/82 05/01/16 13:30 73 138/82 05/01/16 13:15 72 137/65 05/01/16 13:00 69 138/60 05/01/16 12:45 71 141/69 05/01/16 12:30 72 137/66 05/01/16 12:30 36.1 70 20 137/66 100 3.0 05/01/16 12:22 37.2 68 125/57 05/01/16 12:15 70 126/58 05/01/16 12:15 37.2 69 20 126/58 99 3.0 05/01/16 12:00 70 131/49 05/01/16 11:55 68 Physical Exam: General-aaox3 Eyes-no scleral icterus ENT-mmm Neck-supple Lungs-decreased at bases Heart-rrr Abdomen-bs+ s/nt/nd Extremities-no c/c/e Neuro-nonfocal Current Inpatient Medications Medications (Trade) Dose Ordered Sig/Joan Route Start Time Stop Time Status Last Admin Dose Admin Acetaminophen (Tylenol Tab) 650 mg Q4H PRN PO 05/01/16 09:45 05/31/16 09:44 05/01/16 19:43 650 MG Ondansetron HCl (Zofran Inj) 4 mg Q6H PRN IV 05/01/16 09:45 05/31/16 09:44 Benzonatate (Tessalon Perles Cap) 100 mg TID PO 05/01/16 14:00 05/31/16 13:59 05/02/16 07:59 100 MG Salmeterol Xinafoate/ Fluticasone (Advair Diskus 250/50 Inh) 2 puff BID INH 05/01/16 21:00 05/31/16 20:59 05/02/16 07:58 2 PUFF Insulin Aspart (novoLOG ASPART) ACHS SC 05/01/16 11:00 05/31/16 10:59 05/02/16 08:09 5 UNITS Insulin Glargine (Lantus Solostar Pen) 12 unit QAM SC 05/02/16 09:00 06/01/16 08:59 05/02/16 08:02 12 UNIT Albuterol/ Ipratropium (Duoneb) 3 ml QID PRN INH 05/01/16 09:45 05/31/16 09:44 Metoprolol Tartrate (Lopressor Tab) 37.5 mg BID PO 05/01/16 21:00 05/31/16 20:59 05/02/16 07:58 37.5 MG Prednisolone Acetate (Pred Forte 1% Oph Susp) 1 drops QAM OPL 05/02/16 09:00 06/01/16 08:59 05/02/16 07:59 1 DROPS Glucose (Glucose 40% Gel) 15-30 GRAMS 15 GRAMS... UD PRN PO 05/01/16 11:45 05/31/16 11:44 Glucose (Glucose Chew Tab) 4-8 Tablets 4 Tabl... UD PRN PO 05/01/16 11:45 05/31/16 11:44 Dextrose (Dextrose 50% 50ML Syringe) 25-50ML OF 50% DW IV FOR... UD PRN IV 05/01/16 11:45 05/31/16 11:44 Glucagon 1 mg 1 mg UD PRN SQ 05/01/16 11:45 05/31/16 11:44 Pantoprazole Sodium/Syringe (Protonix Inj/ Syringe) 10 ml @ 5 mls/min BID@0921 IV 05/01/16 21:00 05/31/16 20:59 05/02/16 07:59 5 MLS/MIN Cholestyramine Resin (Questran Powder Light) 4 gm BID@,22 PO 05/02/16 10:00 06/01/16 09:59 05/02/16 10:14 4 GM Albuterol (Ventolin Hfa Inhaler) 1 puffs Q4H PRN INH 05/02/16 10:15 06/01/16 10:14 Last 24 Hours Test 05/01/16 16:31 05/01/16 16:45 05/01/16 20:29 05/01/16 22:17 Bedside Glucose 108 mg/dl 185 mg/dl Hemoglobin 6.1 g/dL Hematocrit 17.8 % Prothrombin Time 12.6 SECONDS Prothromb Time International Ratio 1.2 Stool Occult Blood POSITIVE Test 05/02/16 06:27 05/02/16 06:38 05/02/16 10:58 White Blood Count 6.02 K/uL Red Blood Count 1.88 M/uL Hemoglobin 6.2 g/dL Hematocrit 18.2 % Mean Corpuscular Volume 96.8 fL Mean Corpuscular Hemoglobin 33.0 pg Mean Corpuscular Hemoglobin Concent 34.1 g/dl RDW Standard Deviation 68.8 fL RDW Coefficient of Variation 20.3 % Platelet Count 138 K/uL Mean Platelet Volume 9.6 fL Sodium Level 138 mmol/L Potassium Level 4.0 mmol/L Chloride Level 99 mmol/L Carbon Dioxide Level 28 mmol/L Anion Gap 11.0 mmol/L Blood Urea Nitrogen 57 mg/dl Creatinine 6.50 mg/dl Est Creatinine Clear Calc Drug Dose 9.0 ml/min Estimated GFR () 6.9 Estimated GFR (Non- 6.0 BUN/Creatinine Ratio 8.7 Random Glucose 116 mg/dl Calcium Level 7.1 mg/dl Magnesium Level 2.0 mg/dl Bedside Glucose 123 mg/dl 218 mg/dl Date/Time Source Procedure Growth Status 05/01/16 22:17 Stool C.difficile Toxin B Gene (PCR) - Final No C. difficile toxin B gene detected Complete 05/01/16 22:17 Stool Shiga Toxin Test Pending Received 05/01/16 22:17 Stool Stool Culture Pending Received Assessment & Plan ESRD-underwent dialysis yesterday to help with hyperkalemia and volume from the blood products. will recheck k levels after the blood products and if k is elevated, will need a two hour dialysis treatment to help control the k. do not want to give kayexalate since suffering from chronic diarrhea now. Anemia of renal failure-will redose procrit on dialysis. may have had procrit resistance. GI consulted to question any other sources.
[2016-05-02] MEDS ORDERED: CALCIUM GLUCONATE 10% 2,000 MG in SODIUM CHLORIDE 0.9% 50ML 50 ML IV ONE (13:30)
[2016-05-02 16:00] LABS: BUN/CREATININE RATIO 8.1 (10-20); CALCIUM 7.5 mg/dl (8.5-10.1); CREATININE 7.4 mg/dl (0.60-1.20); POTASSIUM 3.9 mmol/L (3.5-5.1)
[2016-05-03] VITALS (22 sets, daily range): BP systolic 120–151; BP diastolic 43–77; PULSE 64–70; TEMP 37–37.2; O2SAT 95–100
[2016-05-03 05:54] LABS: HEMATOCRIT 21.6 % (37-47); MEAN CELL VOLUME 93.9 fL (80-100); MEAN CORPUSCULAR HEMOGLOBIN 31.3 pg (25-34); MEAN CORPUSCULAR HGB CONC 33.3 g/dl (32-36); MEAN PLATELET VOLUME 9.5 fL (7.4-10.4); PLATELET COUNT 124 K/uL (130-400); WHITE BLOOD COUNT 4.12 K/uL (4.8-10.8)
--- NOTE | 2016-05-03 06:02 | Nephrology Progress Note ---
Nephrology Progress Note Date of Service: May 03, 2016. Subjective 71 yo female with underlying copd who has had several weeks of diarrhea following a bronchitis/copd exacerbation presented with weakness and a hg of 4.4 and an inr of >8. pt had another two units yesterday and bp is improving although hypertension meds are on hold. pts diarrhea is also improving. last time she went was yesterday morning. pt breathing well this am. no complaints. Objective Date Time Temp Pulse Resp B/P Pulse Ox O2 Delivery O2 Flow Rate FiO2 05/03/16 04:00 96 Nasal Cannula 3.0 05/03/16 04:00 37.2 66 20 132/61 96 Nasal Cannula 2.0 05/03/16 00:00 97 Nasal Cannula 3.0 05/02/16 23:20 37.1 68 19 146/64 97 3.0 05/02/16 22:12 36.8 71 18 141/55 97 3.0 05/02/16 21:11 36.9 68 18 143/56 100 3.0 05/02/16 20:37 36.8 72 18 146/64 96 3.0 05/02/16 20:17 37.2 69 18 140/71 97 3.0 05/02/16 20:00 97 Nasal Cannula 3.0 05/02/16 16:05 Room Air 05/02/16 15:41 37.3 69 20 135/58 99 Nasal Cannula 3.0 05/02/16 13:36 37.7 68 21 138/71 99 3.0 05/02/16 13:00 36.8 68 18 131/52 99 05/02/16 12:26 36.6 68 18 129/45 95 2.0 05/02/16 12:05 Room Air 05/02/16 11:27 37.3 65 18 132/63 99 2.0 05/02/16 10:25 37.0 63 20 132/65 100 3.0 05/02/16 10:07 37.2 63 20 127/61 99 3.0 05/02/16 08:05 Room Air 05/02/16 07:57 37.3 71 16 130/66 98 2.0 Physical Exam: General-aaox3 Eyes-no scleral icterus ENT-mmm Neck-supple Lungs-cta Heart-regular Abdomen-bs+ s/nt/nd Extremities-no c/c/e Neuro-nonfocal Current Inpatient Medications Medications (Trade) Dose Ordered Sig/Joan Route Start Time Stop Time Status Last Admin Dose Admin Acetaminophen (Tylenol Tab) 650 mg Q4H PRN PO 05/01/16 09:45 05/31/16 09:44 05/01/16 19:43 650 MG Ondansetron HCl (Zofran Inj) 4 mg Q6H PRN IV 05/01/16 09:45 05/31/16 09:44 Benzonatate (Tessalon Perles Cap) 100 mg TID PO 05/01/16 14:00 05/31/16 13:59 05/02/16 20:34 100 MG Salmeterol Xinafoate/ Fluticasone (Advair Diskus 250/50 Inh) 2 puff BID INH 05/01/16 21:00 05/31/16 20:59 05/02/16 20:33 2 PUFF Insulin Aspart (novoLOG ASPART) ACHS SC 05/01/16 11:00 05/31/16 10:59 05/02/16 17:49 3 UNITS Insulin Glargine (Lantus Solostar Pen) 12 unit QAM SC 05/02/16 09:00 06/01/16 08:59 05/02/16 08:02 12 UNIT Albuterol/ Ipratropium (Duoneb) 3 ml QID PRN INH 05/01/16 09:45 05/31/16 09:44 Metoprolol Tartrate (Lopressor Tab) 37.5 mg BID PO 05/01/16 21:00 05/31/16 20:59 05/02/16 20:34 37.5 MG Prednisolone Acetate (Pred Forte 1% Oph Susp) 1 drops QAM OPL 05/02/16 09:00 06/01/16 08:59 05/02/16 07:59 1 DROPS Glucose (Glucose 40% Gel) 15-30 GRAMS 15 GRAMS... UD PRN PO 05/01/16 11:45 05/31/16 11:44 Glucose (Glucose Chew Tab) 4-8 Tablets 4 Tabl... UD PRN PO 05/01/16 11:45 05/31/16 11:44 Dextrose (Dextrose 50% 50ML Syringe) 25-50ML OF 50% DW IV FOR... UD PRN IV 2/4/17 11:45 05/31/16 11:44 Glucagon 1 mg 1 mg UD PRN SQ 05/01/16 11:45 05/31/16 11:44 Pantoprazole Sodium/Syringe (Protonix Inj/ Syringe) 10 ml @ 5 mls/min BID@09,21 IV 05/01/16 21:00 05/31/16 20:59 05/02/16 20:33 5 MLS/MIN Cholestyramine Resin (Questran Powder Light) 4 gm BID@, PO 05/02/16 10:00 06/01/16 09:59 05/02/16 22:15 4 GM Albuterol (Ventolin Hfa Inhaler) 1 puffs Q4H PRN INH 05/02/16 10:15 06/01/16 10:14 Epoetin Hakan (Procrit Inj) 10,000 units TODAY@0800 IV. 05/03/16 08:00 05/03/16 23:59 Last 24 Hours Test 05/02/16 06:27 05/02/16 06:38 05/02/16 10:58 05/02/16 15:05 White Blood Count 6.02 K/uL Red Blood Count 1.88 M/uL Hemoglobin 6.2 g/dL 6.5 g/dL Hematocrit 18.2 % 19.0 % Mean Corpuscular Volume 96.8 fL Mean Corpuscular Hemoglobin 33.0 pg Mean Corpuscular Hemoglobin Concent 34.1 g/dl RDW Standard Deviation 68.8 fL RDW Coefficient of Variation 20.3 % Platelet Count 138 K/uL Mean Platelet Volume 9.6 fL Sodium Level 138 mmol/L 139 mmol/L Potassium Level 4.0 mmol/L 3.9 mmol/L Chloride Level 99 mmol/L 100 mmol/L Carbon Dioxide Level 28 mmol/L 29 mmol/L Anion Gap 11.0 mmol/L 10.0 mmol/L Blood Urea Nitrogen 57 mg/dl 59 mg/dl Creatinine 6.50 mg/dl 7.40 mg/dl Est Creatinine Clear Calc Drug Dose 9.0 ml/min 7.9 ml/min Estimated GFR () 6.9 5.9 Estimated GFR (Non- 6.0 5.1 BUN/Creatinine Ratio 8.7 8.1 Random Glucose 116 mg/dl 108 mg/dl Calcium Level 7.1 mg/dl 7.5 mg/dl Magnesium Level 2.0 mg/dl Bedside Glucose 123 mg/dl 218 mg/dl Ionized Calcium 0.99 mmol/l Test 05/02/16 16:21 05/02/16 20:32 05/03/16 05:35 Bedside Glucose 86 mg/dl 112 mg/dl White Blood Count 4.12 K/uL Red Blood Count 2.30 M/uL Hemoglobin 7.2 g/dL Hematocrit 21.6 % Mean Corpuscular Volume 93.9 fL Mean Corpuscular Hemoglobin 31.3 pg Mean Corpuscular Hemoglobin Concent 33.3 g/dl RDW Standard Deviation 60.9 fL RDW Coefficient of Variation 19.0 % Platelet Count 124 K/uL Mean Platelet Volume 9.5 fL Nucleated RBC Absolute Count (auto) 0.02 K/uL Nucleated Red Blood Cells % 0.4 % Assessment & Plan ESRD-had dialysis on tuesday and planning on dialysis again today with the two units of prbcs from yesterday and 5 total units given since admission. trying to control potassium and will remove about a liter today as tolerated although appears to have needed the volume. k was good yesterday. Anemia of renal failure-on procrit and will redose again today trying to help improve the anemia. hg levels are slowly improving and up to 7s now. DELILAH-calcium levels are low possibly from the blood transfusions. ionized calcium was below 1 yesterday afternoon. will give a dose of iv calcium gluconate.
[2016-05-03] MEDS ORDERED: CALCIUM GLUCONATE 10% 1,000 MG in SODIUM CHLORIDE 0.9% 50ML 50 ML IV ONE (06:30)
[2016-05-03 06:41] LABS: BUN/CREATININE RATIO 6.9 (10-20); CALCIUM 7.3 mg/dl (8.5-10.1); CREATININE 8.9 mg/dl (0.60-1.20); MAGNESIUM 2.1 mg/dl (1.8-2.4)
--- NOTE | 2016-05-03 07:43 | Clinical Documentation Query ---
CLINICAL DOCUMENTATION QUERY Dr. PIERCE, In your clinical opinion is this patient being managed for: ( ) Acute blood loss anemia ( X ) Other explanation of clinical findings (Please Explain) - anemia of chronic disease secondary to ESRD; Procrit resistance, possible chronic GI bleed, supratherapeutic INR ( ) Unable to determine (Please Define) ( ) Need to Discuss ( ) Not Agree The medical record reflects the following clinical findings, treatment, and risk factors. Clinical Indicators: 71 yo female presenting with diarrhea/dark loose stools. Hgb 4.4, Hct 13.4, INR > 8 Treatment:transfused 5 U PRBC, IV vitamin K, IV protonix bolus then gtt, GI consult, IV kcentra, IV Procrit, hold coumadin Risk Factors: GI bleed, supratherapeutic INR Please clarify and document your clinical opinion in the progress notes and discharge summary. Terms such as "probable", "suspected", "likely", "questionable", "possible", or "still to be ruled out" are acceptable. IF IN AGREEMENT, YOU MUST DOCUMENT ABOVE DIAGNOSTIC STATEMENT IN DAILY PROGRESS NOTES AND DISCHARGE SUMMARY. This document is not part of the patient's record. Thank You, Marcelina Fuentes RN [phone]
[2016-05-03] MEDS ORDERED: EPOETIN ALFA 10,000 UNITS/ML VIAL IV. SCH (08:00)
[2016-05-03] MEDS: FLUTICASONE/SALMETEROL 250/50 (ADVAIR) 14 PUFF/1 INHALER INH SCH ×2 (08:07→21:35)
[2016-05-03] MEDS: BENZONATATE 100MG CAP PO SCH ×3 (08:08→21:38)
[2016-05-03] MEDS: PANTOprazole INJ 40 MG in SYRINGE 0 ML IV SCH ×2 (08:08→21:36)
[2016-05-03] MEDS: PrednisoLONE ACET 1% OP SUSP 5 ML BTL OPL SCH (08:08)
[2016-05-03] MEDS: METOPROLOL TARTRATE 25 MG TAB PO SCH ×2 (08:08→21:37)
[2016-05-03] MEDS: INSULIN ASPART 100 UNITS/ML 3 ML PEN SC SCH ×4 (08:10→21:00)
[2016-05-03] MEDS: INSULIN GLARGINE SOLOSTAR 100 UNITS/ML 3 ML PEN SC SCH (08:11)
[2016-05-03] MEDS: CHOLESTYRAMINE LIGHT 4 GM PKT PO SCH ×2 (10:00→22:31)
--- NOTE | 2016-05-03 11:13 | Gastroenterology Progress Note ---
Progress Note Date of Service: May 03, 2016 Subjective Pt evaluation today including: conversation w/ patient, physical exam, lab review Patient was seen and examined this afternoon. She had dialysis this morning. She is without any GI complaints today. She reports that her loose stools have slowed down and she has not had a bowel movement today. She reports one black BM yesterday morning.She is hesitant to restart her coumadin and would like to contact her PCP and electrical engineer mep before she goes back on this medication. Her INR on admission was 8 - has now been reversed to 1.2 Review of Systems Constitutional: No chills, No fever Respiratory: + cough, No dyspnea on exertion, No shortness of breath Cardiac: No chest pain, No edema Abdomen: No GI bleeding, No constipation, No diarrhea, No nausea, No pain, No vomiting Medications Current Inpatient Medications Medications (Trade) Dose Ordered Sig/Joan Route Start Time Stop Time Status Last Admin Dose Admin Acetaminophen (Tylenol Tab) 650 mg Q4H PRN PO 05/01/16 09:45 05/31/16 09:44 05/01/16 19:43 650 MG Ondansetron HCl (Zofran Inj) 4 mg Q6H PRN IV 05/01/16 09:45 05/31/16 09:44 Benzonatate (Tessalon Perles Cap) 100 mg TID PO 05/01/16 14:00 05/31/16 13:59 05/03/16 08:08 100 MG Salmeterol Xinafoate/ Fluticasone (Advair Diskus 250/50 Inh) 2 puff BID INH 05/01/16 21:00 05/31/16 20:59 05/03/16 08:07 2 PUFF Insulin Aspart (novoLOG ASPART) ACHS SC 05/01/16 11:00 05/31/16 10:59 05/03/16 08:10 3 UNITS Insulin Glargine (Lantus Solostar Pen) 12 unit QAM SC 05/02/16 09:00 06/01/16 08:59 05/03/16 08:11 12 UNIT Albuterol/ Ipratropium (Duoneb) 3 ml QID PRN INH 05/01/16 09:45 05/31/16 09:44 Metoprolol Tartrate (Lopressor Tab) 37.5 mg BID PO 05/01/16 21:00 05/31/16 20:59 05/03/16 08:08 37.5 MG Prednisolone Acetate (Pred Forte 1% Oph Susp) 1 drops QAM OPL 05/02/16 09:00 06/01/16 08:59 05/03/16 08:08 1 DROPS Glucose (Glucose 40% Gel) 15-30 GRAMS 15 GRAMS... UD PRN PO 05/01/16 11:45 05/31/16 11:44 Glucose (Glucose Chew Tab) 4-8 Tablets 4 Tabl... UD PRN PO 05/01/16 11:45 05/31/16 11:44 Dextrose (Dextrose 50% 50ML Syringe) 25-50ML OF 50% DW IV FOR... UD PRN IV 05/01/16 11:45 05/31/16 11:44 Glucagon 1 mg 1 mg UD PRN SQ 05/01/16 11:45 05/31/16 11:44 Pantoprazole Sodium/Syringe (Protonix Inj/ Syringe) 10 ml @ 5 mls/min BID@09,21 IV 05/01/16 21:00 05/31/16 20:59 05/03/16 08:08 5 MLS/MIN Cholestyramine Resin (Questran Powder Light) 4 gm BID@10,22 PO 05/02/16 10:00 06/01/16 09:59 05/02/16 22:15 4 GM Albuterol (Ventolin Hfa Inhaler) 1 puffs Q4H PRN INH 05/02/16 10:15 06/01/16 10:14 Epoetin Hakan (Procrit Inj) 10,000 units TODAY@0800 IV. 05/03/16 08:00 05/03/16 23:59 05/03/16 10:58 10,000 UNITS Objective Vital Signs Date Time Temp Pulse Resp B/P Pulse Ox O2 Delivery O2 Flow Rate FiO2 05/03/16 10:15 64 137/63 05/03/16 10:00 65 122/45 05/03/16 09:45 66 140/66 05/03/16 09:30 64 135/60 05/03/16 09:15 64 139/64 05/03/16 09:00 65 139/56 05/03/16 08:42 37.2 64 137/58 05/03/16 08:00 37.1 69 18 144/52 97 Nasal Cannula 3.0 05/03/16 08:00 96 Nasal Cannula 3.0 05/03/16 04:00 96 Nasal Cannula 3.0 05/03/16 04:00 37.2 66 20 132/61 96 Nasal Cannula 2.0 05/03/16 00:00 97 Nasal Cannula 3.0 05/02/16 23:20 37.1 68 19 146/64 97 3.0 05/02/16 22:12 36.8 71 18 141/55 97 3.0 05/02/16 21:11 36.9 68 18 143/56 100 3.0 05/02/16 20:37 36.8 72 18 146/64 96 3.0 05/02/16 20:17 37.2 69 18 140/71 97 3.0 05/02/16 20:00 97 Nasal Cannula 3.0 05/02/16 16:05 Room Air 05/02/16 15:41 37.3 69 20 135/58 99 Nasal Cannula 3.0 05/02/16 13:36 37.7 68 21 138/71 99 3.0 05/02/16 13:00 36.8 68 18 131/52 99 05/02/16 12:26 36.6 68 18 129/45 95 2.0 05/02/16 12:05 Room Air 05/02/16 11:27 37.3 65 18 132/63 99 2.0 Physical Exam General Appearance: no apparent distress Eyes: PERRL ENT: hearing grossly normal Neck: supple, trachea midline Respiratory/Chest: lungs clear, normal breath sounds, no respiratory distress, no accessory muscle use Cardiovascular: regular rate, rhythm, no edema, no gallop, no JVD, no murmur Abdomen: normal bowel sounds, non tender, soft, no organomegaly, no pulsatile mass Neurologic/Psych: alert, normal mood/affect, oriented x 3 Skin: normal color, no jaundice, warm/dry, no rash Laboratory Results Last 24 Hours Test 05/02/16 15:05 05/02/16 16:21 05/02/16 20:32 05/03/16 05:35 Hemoglobin 6.5 g/dL 7.2 g/dL Hematocrit 19.0 % 21.6 % Sodium Level 139 mmol/L 139 mmol/L Potassium Level 3.9 mmol/L 4.0 mmol/L Chloride Level 100 mmol/L 101 mmol/L Carbon Dioxide Level 29 mmol/L 25 mmol/L Anion Gap 10.0 mmol/L 13.0 mmol/L Blood Urea Nitrogen 59 mg/dl 62 mg/dl Creatinine 7.40 mg/dl 8.90 mg/dl Est Creatinine Clear Calc Drug Dose 7.9 ml/min 6.6 ml/min Estimated GFR () 5.9 4.7 Estimated GFR (Non- 5.1 4.1 BUN/Creatinine Ratio 8.1 6.9 Random Glucose 108 mg/dl 112 mg/dl Calcium Level 7.5 mg/dl 7.3 mg/dl Ionized Calcium 0.99 mmol/l Bedside Glucose 86 mg/dl 112 mg/dl White Blood Count 4.12 K/uL Red Blood Count 2.30 M/uL Mean Corpuscular Volume 93.9 fL Mean Corpuscular Hemoglobin 31.3 pg Mean Corpuscular Hemoglobin Concent 33.3 g/dl RDW Standard Deviation 60.9 fL RDW Coefficient of Variation 19.0 % Platelet Count 124 K/uL Mean Platelet Volume 9.5 fL Nucleated RBC Absolute Count (auto) 0.02 K/uL Nucleated Red Blood Cells % 0.4 % Magnesium Level 2.1 mg/dl Test 05/03/16 06:33 Bedside Glucose 116 mg/dl Assessment and Plan Ms. Velasco was admitted with melena likely secondary to warfarin toxicity. We will not proceed with an EGD/Colon at this time due to recent procedures as long as bleeding does not persist after reversal or anticoagulation. Ms. Velasco is in agreement with this plan and is very hesitant to restart her anticoagulation. Questran 4 g per day as needed for loose stools C.Diff negative, cultures pending Monitor blood count, transfuse PRN Consider cardiology consultation for anticoagulation needs Attg addendum: I interviewed and examined pt, reviewed chart and labs. She had recurrence of diarrhea this afternoon, but denies GI bleeding. For now, will cont Questran, follow hgb.
--- NOTE | 2016-05-03 13:56 | Progress Note ---
Subjective Date of Service: May 03, 2016. Subjective Pt evaluation today including: conversation w/ patient, physical exam, lab review, review of studies, conversation w/ pre owned sales consultant, review of inpatient medication list Saw/examined the patient in room 212 She had hemodialysis this morning, did well there +weakness +scared to go home No other complaints Problem List Medical Problems: (1) Chest pain Status: Acute (2) CHF (congestive heart failure) Status: Acute (3) COPD exacerbation Status: Acute (4) GI bleed Status: Acute (5) Hemoptysis Status: Acute (6) Hypoxemia Status: Acute (7) Hypoxia Status: Acute (8) Left lower lobe pneumonia Status: Acute (9) Pneumonia Status: Acute (10) Pulmonary congestion Status: Acute (11) Supratherapeutic INR Status: Acute Review of Systems Constitutional: + fatigue, + weakness Respiratory: + shortness of breath (at baseline), No cough, No sputum Cardiac: No chest pain Abdomen: No diarrhea, No nausea, No pain, No vomiting Musculoskeletal: No joint pain Heme: No abnormal bleeding/bruising Medications Current Inpatient Medications Medications (Trade) Dose Ordered Sig/Joan Route Start Time Stop Time Status Last Admin Dose Admin Acetaminophen (Tylenol Tab) 650 mg Q4H PRN PO 05/01/16 09:45 05/31/16 09:44 05/01/16 19:43 650 MG Ondansetron HCl (Zofran Inj) 4 mg Q6H PRN IV 05/01/16 09:45 05/31/16 09:44 Benzonatate (Tessalon Perles Cap) 100 mg TID PO 05/01/16 14:00 05/31/16 13:59 05/03/16 08:08 100 MG Salmeterol Xinafoate/ Fluticasone (Advair Diskus 250/50 Inh) 2 puff BID INH 05/01/16 21:00 05/31/16 20:59 05/03/16 08:07 2 PUFF Insulin Aspart (novoLOG ASPART) ACHS SC 05/01/16 11:00 05/31/16 10:59 05/03/16 08:10 3 UNITS Insulin Glargine (Lantus Solostar Pen) 12 unit QAM SC 05/02/16 09:00 06/01/16 08:59 05/03/16 08:11 12 UNIT Albuterol/ Ipratropium (Duoneb) 3 ml QID PRN INH 05/01/16 09:45 05/31/16 09:44 Metoprolol Tartrate (Lopressor Tab) 37.5 mg BID PO 05/01/16 21:00 05/31/16 20:59 05/03/16 08:08 37.5 MG Prednisolone Acetate (Pred Forte 1% Oph Susp) 1 drops QAM OPL 05/02/16 09:00 06/01/16 08:59 05/03/16 08:08 1 DROPS Glucose (Glucose 40% Gel) 15-30 GRAMS 15 GRAMS... UD PRN PO 05/01/16 11:45 05/31/16 11:44 Glucose (Glucose Chew Tab) 4-8 Tablets 4 Tabl... UD PRN PO 05/01/16 11:45 05/31/16 11:44 Dextrose (Dextrose 50% 50ML Syringe) 25-50ML OF 50% DW IV FOR... UD PRN IV 05/01/16 11:45 05/31/16 11:44 Glucagon 1 mg 1 mg UD PRN SQ 05/01/16 11:45 05/31/16 11:44 Pantoprazole Sodium/Syringe (Protonix Inj/ Syringe) 10 ml @ 5 mls/min BID@09,21 IV 05/01/16 21:00 05/31/16 20:59 05/03/16 08:08 5 MLS/MIN Cholestyramine Resin (Questran Powder Light) 4 gm BID@10,22 PO 05/02/16 10:00 06/01/16 09:59 05/02/16 22:15 4 GM Albuterol (Ventolin Hfa Inhaler) 1 puffs Q4H PRN INH 05/02/16 10:15 06/01/16 10:14 Epoetin Hakan (Procrit Inj) 10,000 units TODAY@0800 IV. 05/03/16 08:00 05/03/16 23:59 05/03/16 10:58 10,000 UNITS Objective Vital Signs Date Time Temp Pulse Resp B/P Pulse Ox O2 Delivery O2 Flow Rate FiO2 05/03/16 12:03 37.0 68 133/54 05/03/16 12:00 96 Nasal Cannula 3.0 05/03/16 12:00 37.1 69 18 136/66 95 Nasal Cannula 3.0 05/03/16 11:45 65 128/57 05/03/16 11:30 67 124/43 05/03/16 11:15 70 129/69 05/03/16 11:00 65 125/49 05/03/16 10:45 65 129/56 05/03/16 10:30 66 120/56 05/03/16 10:15 64 137/63 05/03/16 10:00 65 122/45 05/03/16 09:45 66 140/66 05/03/16 09:30 64 135/60 05/03/16 09:15 64 139/64 05/03/16 09:00 65 139/56 05/03/16 08:42 37.2 64 137/58 05/03/16 08:00 37.1 69 18 144/52 97 Nasal Cannula 3.0 05/03/16 08:00 96 Nasal Cannula 3.0 05/03/16 04:00 96 Nasal Cannula 3.0 05/03/16 04:00 37.2 66 20 132/61 96 Nasal Cannula 2.0 05/03/16 00:00 97 Nasal Cannula 3.0 05/02/16 23:20 37.1 68 19 146/64 97 3.0 05/02/16 22:12 36.8 71 18 141/55 97 3.0 05/02/16 21:11 36.9 68 18 143/56 100 3.0 05/02/16 20:37 36.8 72 18 146/64 96 3.0 05/02/16 20:17 37.2 69 18 140/71 97 3.0 05/02/16 20:00 97 Nasal Cannula 3.0 05/02/16 16:05 Room Air 05/02/16 15:41 37.3 69 20 135/58 99 Nasal Cannula 3.0 Physical Exam General Appearance: no apparent distress Respiratory/Chest: lungs clear, normal breath sounds, no respiratory distress, no accessory muscle use Cardiovascular: regular rate, rhythm, no edema, no murmur Abdomen: normal bowel sounds, non tender, soft Extremities: normal inspection, no pedal edema Neurologic/Psychiatric: no motor/sensory deficits, alert, normal mood/affect Skin: normal color Laboratory Results Last 24 Hours Test 05/02/16 15:05 05/02/16 16:21 05/02/16 20:32 05/03/16 05:35 Hemoglobin 6.5 g/dL 7.2 g/dL Hematocrit 19.0 % 21.6 % Sodium Level 139 mmol/L 139 mmol/L Potassium Level 3.9 mmol/L 4.0 mmol/L Chloride Level 100 mmol/L 101 mmol/L Carbon Dioxide Level 29 mmol/L 25 mmol/L Anion Gap 10.0 mmol/L 13.0 mmol/L Blood Urea Nitrogen 59 mg/dl 62 mg/dl Creatinine 7.40 mg/dl 8.90 mg/dl Est Creatinine Clear Calc Drug Dose 7.9 ml/min 6.6 ml/min Estimated GFR () 5.9 4.7 Estimated GFR (Non- 5.1 4.1 BUN/Creatinine Ratio 8.1 6.9 Random Glucose 108 mg/dl 112 mg/dl Calcium Level 7.5 mg/dl 7.3 mg/dl Ionized Calcium 0.99 mmol/l Bedside Glucose 86 mg/dl 112 mg/dl White Blood Count 4.12 K/uL Red Blood Count 2.30 M/uL Mean Corpuscular Volume 93.9 fL Mean Corpuscular Hemoglobin 31.3 pg Mean Corpuscular Hemoglobin Concent 33.3 g/dl RDW Standard Deviation 60.9 fL RDW Coefficient of Variation 19.0 % Platelet Count 124 K/uL Mean Platelet Volume 9.5 fL Nucleated RBC Absolute Count (auto) 0.02 K/uL Nucleated Red Blood Cells % 0.4 % Magnesium Level 2.1 mg/dl Test 05/03/16 06:33 05/03/16 12:13 Bedside Glucose 116 mg/dl 147 mg/dl Assessment and Plan This is a 71 year old female with PMH of ESRD on HD, anemia of chronic disease, moderate COPD on nocturnal O2 with ongoing tobacco abuse, paroxysmal atrial fibrillation on Coumadin, insulin dependent DM2 admitted secondary to anemia Anemia, multifactorial 2/6 Hgb is now up to 7.2 s/p 5 total units of PRBCs procrit dosing today, recheck H/H in AM 2/5 Hgb up to 6.2 s/p 3 units PRBCs will transfuse another unit of PRBC recheck H/H four hours post-transfusion 2/4 Hgb of 4.4 on arrival multifactorial: chronic kidney disease, Procrit resistance, possible GI source ( dark stools) in the ER: PPI bolus given, will transfuse two units of PRBCs patient was also given 10 mg of IV Vitamin K and PCC as per Dr. Hallman due to supratherapeutic INR appreciate nephrology input hemodialysis today with the transfusion procrit as per nephrology recheck H/H and INR four hours post-transfusion/dialysis Warfarin Induced Coagulopathy Supratherapeutic INR 2/5 INR now down to 1.2 2 likely secondary to diarrhea appreciate ER and Dr. Gonzales input will give 10mg IV Vitamin K and PCC for every 3 units of PRBCs will give one of FFP for now, transfuse two units PRBCs and monitor Possible GI bleed 05/02 started on questran No scope pending 05/01 patient presented with diarrhea, dark stools during previous admission, Hgb was ~ 7 with heme positive stools she has had endoscopy and colonoscopy recently was given triple therapy for H. pylori infection at that time for 14 days ( course completed) will consult GI for further recommendations ESRD on HD regular schedule of Tuesday, , Tuesday appreciate nephrology input for this patient will transfuse PRBCs today; with HD Procrit as per nephro monitor fluid status with transfusions Paroxysmal A. Fib patient takes Coumadin regularly hold Coumadin (may need to stop this altogether) Vitamin K and PCC as above continue b-mariana COPD uses nocturnal O2, now requiring during the day ongoing tobacco use continue home inhalers, may need nebulizers if breathing status worsens HTN hold amlodipine/clonidine/ARB continue b-mariana monitor BP with significant anemia restart meds when Hgb improves Insulin Dependent DM2 patient takes Lantus 26 units as well as Novolog sliding scale she is having diarrhea and decreased appetite will cut back on the Lantus and put in a sliding scale insulin DVT ppx SCDs FULL CODE
[2016-05-04] VITALS (9 sets, daily range): BP systolic 125–139; BP diastolic 54–70; PULSE 65–68; TEMP 36.9–37.5; O2SAT 90–99
[2016-05-04 07:09] LABS: HEMATOCRIT 22.2 % (37-47); MEAN CELL VOLUME 96.9 fL (80-100); MEAN CORPUSCULAR HEMOGLOBIN 32.3 pg (25-34); MEAN CORPUSCULAR HGB CONC 33.3 g/dl (32-36); MEAN PLATELET VOLUME 9.8 fL (7.4-10.4); PLATELET COUNT 119 K/uL (130-400); RED BLOOD COUNT 2.29 M/uL (4.2-5.4); WHITE BLOOD COUNT 3.58 K/uL (4.8-10.8)
[2016-05-04 08:01] LABS: BUN/CREATININE RATIO 4.7 (10-20); CALCIUM 6.9 mg/dl (8.5-10.1); CREATININE 7.2 mg/dl (0.60-1.20); POTASSIUM 3.9 mmol/L (3.5-5.1)
[2016-05-04] MEDS: FLUTICASONE/SALMETEROL 250/50 (ADVAIR) 14 PUFF/1 INHALER INH SCH ×2 (08:06→19:17)
[2016-05-04] MEDS: BENZONATATE 100MG CAP PO SCH ×3 (08:06→19:18)
[2016-05-04] MEDS: PrednisoLONE ACET 1% OP SUSP 5 ML BTL OPL SCH (08:07)
[2016-05-04] MEDS: INSULIN ASPART 100 UNITS/ML 3 ML PEN SC SCH ×4 (08:08→20:51)
[2016-05-04] MEDS: INSULIN GLARGINE SOLOSTAR 100 UNITS/ML 3 ML PEN SC SCH (08:09)
[2016-05-04] MEDS: PANTOprazole INJ 40 MG in SYRINGE 0 ML IV SCH (08:09)
--- NOTE | 2016-05-04 09:18 | Gastroenterology Progress Note ---
Progress Note Date of Service: May 04, 2016 Subjective Pt evaluation today including: conversation w/ patient, physical exam, chart review, lab review, review of studies, review of inpatient medication list Ms. Velasco is a 71 yr old female admitted on 05/01 with report of loose black stools x 2 weeks in the setting of supratherapeudic INR at >8 (coumadin for a- fib). Hb 4.4 on arrival, received 5 units of RBCs. Stool count decreasing, more brown, very little black in most recent stool. Hb stable today at 7.4 (7.2 yesterday). Pt denies abdominal pain. Endoscopy not repeated because she had undergone EGD in January 2016 (mild gastritis), Colonoscopy in February 2016 (internal hemorrhoids). Pt reports that cholestyramine caused nausea. Review of Systems Constitutional: No fever Respiratory: No cough Abdomen: + GI bleeding (clearing), + diarrhea (one this morning), No constipation, No nausea, No pain, No vomiting Neuro: No memory loss Psych: No depression symptoms Heme: No abnormal bleeding/bruising Endo: + fatigue (much improved, sitting up in bed) Skin: No rash Medications Current Inpatient Medications Medications (Trade) Dose Ordered Sig/Joan Route Start Time Stop Time Status Last Admin Dose Admin Acetaminophen (Tylenol Tab) 650 mg Q4H PRN PO 05/01/16 09:45 05/31/16 09:44 05/01/16 19:43 650 MG Ondansetron HCl (Zofran Inj) 4 mg Q6H PRN IV 05/01/16 09:45 05/31/16 09:44 05/04/16 04:17 4 MG Benzonatate (Tessalon Perles Cap) 100 mg TID PO 05/01/16 14:00 05/31/16 13:59 05/04/16 08:06 100 MG Salmeterol Xinafoate/ Fluticasone (Advair Diskus 250/50 Inh) 2 puff BID INH 05/01/16 21:00 05/31/16 20:59 05/04/16 08:06 2 PUFF Insulin Aspart (novoLOG ASPART) ACHS SC 05/01/16 11:00 05/31/16 10:59 05/04/16 08:08 3 UNITS Insulin Glargine (Lantus Solostar Pen) 12 unit QAM SC 05/02/16 09:00 06/01/16 08:59 05/04/16 08:09 12 UNIT Albuterol/ Ipratropium (Duoneb) 3 ml QID PRN INH 05/01/16 09:45 05/31/16 09:44 Metoprolol Tartrate (Lopressor Tab) 37.5 mg BID PO 05/01/16 21:00 05/31/16 20:59 05/03/16 21:37 37.5 MG Prednisolone Acetate (Pred Forte 1% Oph Susp) 1 drops QAM OPL 05/02/16 09:00 06/01/16 08:59 05/04/16 08:07 1 DROPS Glucose (Glucose 40% Gel) 15-30 GRAMS 15 GRAMS... UD PRN PO 05/01/16 11:45 05/31/16 11:44 Glucose (Glucose Chew Tab) 4-8 Tablets 4 Tabl... UD PRN PO 05/01/16 11:45 05/31/16 11:44 Dextrose (Dextrose 50% 50ML Syringe) 25-50ML OF 50% DW IV FOR... UD PRN IV 05/01/16 11:45 05/31/16 11:44 Glucagon (Glucagon Inj) 1 mg UD PRN SQ 05/01/16 11:45 05/31/16 11:44 Albuterol (Ventolin Hfa Inhaler) 1 puffs Q4H PRN INH 05/02/16 10:15 06/01/16 10:14 Pantoprazole Sodium (Protonix Tab) 40 mg BID PO 05/04/16 09:00 06/03/16 08:59 Objective Vital Signs Date Time Temp Pulse Resp B/P Pulse Ox O2 Delivery O2 Flow Rate FiO2 05/04/16 07:36 37.3 68 20 139/70 98 3.0 05/04/16 04:28 37.2 68 19 134/68 97 Nasal Cannula 3.0 05/04/16 04:00 97 Nasal Cannula 3.0 05/04/16 00:37 37.5 65 21 125/69 99 Nasal Cannula 3.0 05/04/16 00:01 99 Nasal Cannula 3.0 05/03/16 20:05 37.1 66 18 151/77 100 2.0 05/03/16 20:00 100 Nasal Cannula 3.0 05/03/16 16:00 96 Nasal Cannula 3.0 05/03/16 15:57 37.1 68 18 134/66 99 2.0 05/03/16 12:03 37.0 68 133/54 05/03/16 12:00 96 Nasal Cannula 3.0 05/03/16 12:00 37.1 69 18 136/66 95 Nasal Cannula 3.0 05/03/16 11:45 65 128/57 05/03/16 11:30 67 124/43 05/03/16 11:15 70 129/69 05/03/16 11:00 65 125/49 05/03/16 10:45 65 129/56 05/03/16 10:30 66 120/56 05/03/16 10:15 64 137/63 05/03/16 10:00 65 122/45 05/03/16 09:45 66 140/66 05/03/16 09:30 64 135/60 05/03/16 09:15 64 139/64 Physical Exam General Appearance: no apparent distress Neck: no JVD Respiratory/Chest: lungs clear, normal breath sounds Cardiovascular: regular rate, rhythm, no edema, no gallop, no JVD, no murmur Abdomen: non tender, soft Extremities: non-tender Neurologic/Psych: alert, normal mood/affect, oriented x 3 Skin: normal color, no jaundice Laboratory Results Last 24 Hours Test 05/03/16 12:13 05/03/16 16:10 05/03/16 20:22 05/04/16 06:13 Bedside Glucose 147 mg/dl 128 mg/dl 133 mg/dl White Blood Count 3.58 K/uL Red Blood Count 2.29 M/uL Hemoglobin 7.4 g/dL Hematocrit 22.2 % Mean Corpuscular Volume 96.9 fL Mean Corpuscular Hemoglobin 32.3 pg Mean Corpuscular Hemoglobin Concent 33.3 g/dl RDW Standard Deviation 62.6 fL RDW Coefficient of Variation 19.4 % Platelet Count 119 K/uL Mean Platelet Volume 9.8 fL Sodium Level 136 mmol/L Potassium Level 3.9 mmol/L Chloride Level 98 mmol/L Carbon Dioxide Level 29 mmol/L Anion Gap 9.0 mmol/L Blood Urea Nitrogen 34 mg/dl Creatinine 7.20 mg/dl Est Creatinine Clear Calc Drug Dose 8.2 ml/min Estimated GFR () 6.1 Estimated GFR (Non- 5.3 BUN/Creatinine Ratio 4.7 Random Glucose 108 mg/dl Calcium Level 6.9 mg/dl Test 05/04/16 06:50 Bedside Glucose 116 mg/dl Assessment and Plan Ms. Velasco is a 71 yr old female who presented with melena in the setting of supratherapeudic INR. Plan: 1. Continue to defer endoscopy. 2. Stop cholestyramine as it caused nausea, instead Colestid 2grams BID (not taken with other meds or vitamins). Attg addendum: I interviewed and examined pt, reviewed chart and labs. Pt with persistent diarrhea. Unclear etiology, but will try colestid.
[2016-05-04] MEDS: PANTOprazole SOD 40 MG TAB PO SCH ×2 (10:12→19:18)
[2016-05-04] MEDS: METOPROLOL TARTRATE 25 MG TAB PO SCH ×2 (10:12→19:18)
[2016-05-04] MEDS: COLESTIPOL HCL 1 GM TAB PO SCH ×3 (10:12→21:23)
--- NOTE | 2016-05-04 16:56 | Progress Note ---
Internal Med Progress Note Date of Service: May 04, 2016. Provider Documentation: SUBJECTIVE: Patient is lying in her bed and does not seem to be in any distress. Breathing comfortably. Had stomach upset and nausea following taking Questran. OBJECTIVE: Vital Signs-as noted below Examination: General Appearance: Alert/Awake, In no apparent distress HEENT: Normocephalic, Eyes, Ears, Nose & Throat are normal looking Neck: Supple, Midline trachea Respiratory/Chest: lungs clear, normal breath sounds, no respiratory distress, no accessory muscle use Cardiovascular: regular rate, rhythm, no edema, no murmur Abdomen: normal bowel sounds, non tender, soft Extremities: normal inspection, no pedal edema Neurologic/Psychiatric: no motor/sensory deficits, alert, normal mood/affect Skin: normal color Lab data as noted below. ASSESSMENT & PLAN: 71 year old female with PMH of ESRD on HD, anemia of chronic disease, moderate COPD on nocturnal O2 with ongoing tobacco abuse, paroxysmal atrial fibrillation on Coumadin, insulin dependent Diabetes admitted secondary to anemia Anemia, multifactorial: Likely has GI bleed as an acute etiology. S/P 5 units PRBC transfusions. -H/H is gradually creeping upwards -Noted GI input. No plans for any intervention so far. -Stool occult is positive -C. Diff is negative Warfarin Induced Coagulopathy/Supra-therapeutic INR: INR is normal now. Possible GI Bleed: Patient presented with diarrhea, dark stools & has heme positive stools. -Off Questran now. -She has had endoscopy and colonoscopy recently -She was given triple therapy for H. pylori infection at that time for 14 days (course completed) ESRD on HD: Regular schedule of Tuesday, , Tuesday -Appreciate nephrology input for this patient -Procrit as per nephro -Monitoring fluid status closely. Hypertension: Holding amlodipine/clonidine/ARB -Continue b-mariana -Monitor BP with significant anemia Insulin Dependent Diabetes: Patient takes Lantus 26 units as well as Novolog sliding scale -Monitoring BS closely and cover as per sliding scale. Paroxysmal A. Fib : Patient takes Coumadin regularly which is on hold now due to GI bleed. HR is stable. -Vitamin K and PCC as above -Continue b-mariana COPD: Stable.Uses nocturnal O2, now requiring during the day. Ongoing tobacco use -Continue home inhalers, may need nebulizers if breathing status worsens DVT Prophylaxis: SCDs FULL CODE Disposition: Discharge home once is clinically stable. Vital Signs: Date Time Temp Pulse Resp B/P Pulse Ox O2 Delivery O2 Flow Rate FiO2 05/04/16 16:07 37.0 66 24 127/54 90 Room Air 05/04/16 16:00 Room Air 05/04/16 12:00 Nasal Cannula 2.0 05/04/16 11:22 37.1 66 20 132/65 97 Nasal Cannula 2.0 05/04/16 08:00 Nasal Cannula 3.0 05/04/16 07:36 37.3 68 20 139/70 98 3.0 05/04/16 04:28 37.2 68 19 134/68 97 Nasal Cannula 3.0 05/04/16 04:00 97 Nasal Cannula 3.0 05/04/16 00:37 37.5 65 21 125/69 99 Nasal Cannula 3.0 05/04/16 00:01 99 Nasal Cannula 3.0 05/03/16 20:05 37.1 66 18 151/77 100 2.0 05/03/16 20:00 100 Nasal Cannula 3.0 Lab Results: Results Past 24 Hours Test 05/03/16 20:22 05/04/16 06:13 05/04/16 06:50 05/04/16 10:56 Range/Units Bedside Glucose 133 116 128 70-90 mg/dl White Blood Count 3.58 4.8-10.8 K/uL Red Blood Count 2.29 4.2-5.4 M/uL Hemoglobin 7.4 12.0-16.0 g/dL Hematocrit 22.2 37-47 % Mean Corpuscular Volume 96.9 80-100 fL Mean Corpuscular Hemoglobin 32.3 25-34 pg Mean Corpuscular Hemoglobin Concent 33.3 32-36 g/dl RDW Standard Deviation 62.6 36.4-46.3 fL RDW Coefficient of Variation 19.4 11.5-14.5 % Platelet Count 119 130-400 K/uL Mean Platelet Volume 9.8 7.4-10.4 fL Sodium Level 136 136-145 mmol/L Potassium Level 3.9 3.5-5.1 mmol/L Chloride Level 98 98-107 mmol/L Carbon Dioxide Level 29 21-32 mmol/L Anion Gap 9.0 3-11 mmol/L Blood Urea Nitrogen 34 7-18 mg/dl Creatinine 7.20 0.60-1.20 mg/dl Est Creatinine Clear Calc Drug Dose 8.2 ml/min Estimated GFR () 6.1 Estimated GFR (Non- 5.3 BUN/Creatinine Ratio 4.7 10-20 Random Glucose 108 70-99 mg/dl Calcium Level 6.9 8.5-10.1 mg/dl Test 05/04/16 16:18 Range/Units Bedside Glucose 87 70-90 mg/dl
[2016-05-05] VITALS (21 sets, daily range): BP systolic 115–159; BP diastolic 59–75; PULSE 64–73; TEMP 36.8–37.1; O2SAT 90–96
[2016-05-05 06:33] LABS: BASO % 0.3 %; BASO ABS # 0.01 K/uL (0-0.2); EOS % 3.1 %; HEMATOCRIT 22.4 % (37-47); IG% 0.3 %; LYMPH % 15.6 %; MEAN CELL VOLUME 98.2 fL (80-100); MEAN CORPUSCULAR HEMOGLOBIN 32.5 pg (25-34); MEAN PLATELET VOLUME 9.8 fL (7.4-10.4); MONO % 8.6 %; NEUT % 72.1 %; PLATELET COUNT 137 K/uL (130-400); RED BLOOD COUNT 2.28 M/uL (4.2-5.4); WHITE BLOOD COUNT 3.84 K/uL (4.8-10.8)
[2016-05-05 07:23] LABS: ANISOCYTOSIS PRESENT; COMPLETE YES; POLYCHROMASIA 1+
[2016-05-05] MEDS ORDERED: EPOETIN ALFA 10,000 UNITS/ML VIAL IV. SCH (07:30)
[2016-05-05] MEDS: FLUTICASONE/SALMETEROL 250/50 (ADVAIR) 14 PUFF/1 INHALER INH SCH ×2 (07:33→21:50)
[2016-05-05] MEDS: PrednisoLONE ACET 1% OP SUSP 5 ML BTL OPL SCH (07:33)
[2016-05-05] MEDS: BENZONATATE 100MG CAP PO SCH ×3 (08:00→21:47)
[2016-05-05] MEDS: INSULIN ASPART 100 UNITS/ML 3 ML PEN SC SCH ×4 (08:29→21:00)
[2016-05-05] MEDS: INSULIN GLARGINE SOLOSTAR 100 UNITS/ML 3 ML PEN SC SCH (08:30)
[2016-05-05] MEDS: COLESTIPOL HCL 1 GM TAB PO SCH ×2 (10:00→21:50)
--- NOTE | 2016-05-05 10:14 | Dialysis Progress Note ---
Nephrology Dialysis Note Date of Service: May 05, 2016. Subjective 71 yo female with underlying copd who has had several weeks of diarrhea following a bronchitis/copd exacerbation presented with weakness and a hg of 4.4 and an inr of >8. diarrhea initiatlly improved but started to come back yesterday. seen on dialysis. comfortable. pt is off cycle doing dialysis m-w- f as inpt. usually t/h/s at outpt. Objective Date Time Temp Pulse Resp B/P Pulse Ox O2 Delivery O2 Flow Rate FiO2 05/05/16 08:02 36.9 65 18 144/69 90 Room Air 05/05/16 00:29 37.1 65 20 115/68 92 Nasal Cannula 2.5 05/04/16 20:00 3.0 05/04/16 20:00 36.9 65 20 138/67 90 Room Air 05/04/16 18:33 37.0 66 24 90 05/04/16 16:07 37.0 66 24 127/54 90 Room Air 05/04/16 16:00 Room Air 05/04/16 12:00 Nasal Cannula 2.0 05/04/16 11:22 37.1 66 20 132/65 97 Nasal Cannula 2.0 Physical Exam: General-aaox3 Eyes-no scleral icterus ENT-mmm Neck-supple Lungs-clear Heart-rrr Abdomen-bs+ s/nt/nd Extremities-no c/c/e Neuro-nonfocal Current Inpatient Medications Medications (Trade) Dose Ordered Sig/Joan Route Start Time Stop Time Status Last Admin Dose Admin Acetaminophen (Tylenol Tab) 650 mg Q4H PRN PO 05/01/16 09:45 05/31/16 09:44 05/01/16 19:43 650 MG Ondansetron HCl (Zofran Inj) 4 mg Q6H PRN IV 05/01/16 09:45 05/31/16 09:44 05/04/16 04:17 4 MG Benzonatate (Tessalon Perles Cap) 100 mg TID PO 05/01/16 14:00 05/31/16 13:59 05/04/16 19:18 100 MG Salmeterol Xinafoate/ Fluticasone (Advair Diskus 250/50 Inh) 2 puff BID INH 05/01/16 21:00 05/31/16 20:59 05/05/16 07:33 2 PUFF Insulin Aspart (novoLOG ASPART) ACHS SC 05/01/16 11:00 05/31/16 10:59 05/05/16 08:29 1 UNITS Insulin Glargine (Lantus Solostar Pen) 12 unit QAM SC 05/02/16 09:00 06/01/16 08:59 05/05/16 08:30 12 UNIT Albuterol/ Ipratropium (Duoneb) 3 ml QID PRN INH 05/01/16 09:45 05/31/16 09:44 Metoprolol Tartrate (Lopressor Tab) 37.5 mg BID PO 05/01/16 21:00 05/31/16 20:59 05/04/16 19:18 37.5 MG Prednisolone Acetate (Pred Forte 1% Oph Susp) 1 drops QAM OPL 05/02/16 09:00 06/01/16 08:59 05/05/16 07:33 1 DROPS Glucose (Glucose 40% Gel) 15-30 GRAMS 15 GRAMS... UD PRN PO 05/01/16 11:45 05/31/16 11:44 Glucose (Glucose Chew Tab) 4-8 Tablets 4 Tabl... UD PRN PO 05/01/16 11:45 05/31/16 11:44 Dextrose (Dextrose 50% 50ML Syringe) 25-50ML OF 50% DW IV FOR... UD PRN IV 05/01/16 11:45 05/31/16 11:44 Glucagon (Glucagon Inj) 1 mg UD PRN SQ 05/01/16 11:45 05/31/16 11:44 Albuterol (Ventolin Hfa Inhaler) 1 puffs Q4H PRN INH 05/02/16 10:15 06/01/16 10:14 Pantoprazole Sodium (Protonix Tab) 40 mg BID PO 05/04/16 09:00 06/03/16 08:59 05/04/16 19:18 40 MG Colestipol HCl (Colestid Tab) 2 gm BID@1000,2200 PO 05/04/16 10:00 06/03/16 09:59 05/04/16 21:23 2 GM Epoetin Hakan (Procrit Inj) 10,000 units TODAY@0730 IV. 05/05/16 07:30 2/8/17 18:00 Last 24 Hours Test 05/04/16 10:56 05/04/16 16:18 05/04/16 20:21 05/05/16 06:02 Bedside Glucose 128 mg/dl 87 mg/dl 129 mg/dl White Blood Count 3.84 K/uL Red Blood Count 2.28 M/uL Hemoglobin 7.4 g/dL Hematocrit 22.4 % Mean Corpuscular Volume 98.2 fL Mean Corpuscular Hemoglobin 32.5 pg Mean Corpuscular Hemoglobin Concent 33.0 g/dl Platelet Count 137 K/uL Mean Platelet Volume 9.8 fL Neutrophils (%) (Auto) 72.1 % Lymphocytes (%) (Auto) 15.6 % Monocytes (%) (Auto) 8.6 % Eosinophils (%) (Auto) 3.1 % Basophils (%) (Auto) 0.3 % Neutrophils # (Auto) 2.77 K/uL Lymphocytes # (Auto) 0.60 K/uL Monocytes # (Auto) 0.33 K/uL Eosinophils # (Auto) 0.12 K/uL Basophils # (Auto) 0.01 K/uL RDW Standard Deviation 66.4 fL RDW Coefficient of Variation 19.5 % Immature Granulocyte % (Auto) 0.3 % Immature Granulocyte # (Auto) 0.01 K/uL Polychromasia 1+ Anisocytosis PRESENT Test 05/05/16 07:47 Bedside Glucose 101 mg/dl Assessment & Plan ESRD-seen on dialysis. bp is improved. removing about 2 liters of fluid today. access working well. Anemia of renal failure-on procrit on dialysis and hg levels are stable in the 7s. will take several weeks for hg levels to continue to improve back up into the 10s. HTN: was on norvasc 10, clonidine 0.1mg in am, lasix 40mg a day, lopressor 37.5 bid, and losartan 100mg a day. would continue to hold these medications for now. may not need as much bp meds wiht the low hg levels. would slowly restart them as bp continues to improve. trying to remove 2 liters on dialysis today and will see if bp tolerates and see if she cramps.
--- NOTE | 2016-05-05 12:28 | Gastroenterology Progress Note ---
Progress Note Date of Service: May 05, 2016 Subjective Pt evaluation today including: conversation w/ patient, physical exam, chart review, lab review, review of studies, review of inpatient medication list Ms. Velasco is a 71 yr old female ESRD patient. GI consulted for ? GI bleed and for diarrhea. Regarding GI bleed: Hb remains stable and pt had recent EGD, Colonoscopy, thus deferring endoscopy at this time. Regarding diarrhea: she did not tolerate Cholestyramine (nausea, "sick") and was started on Colestid 2 grams BID and the first dose was last night. She passed one diarrhea BM last night and one thus far today. Imodium has not been effective in the past. Seen in dialysis where she is resting comfortably and denies pain. Review of Systems Constitutional: No fever Respiratory: No cough Cardiac: No chest pain Abdomen: + diarrhea, No nausea, No pain, No vomiting Female : No dysuria Neuro: No memory loss Psych: No depression symptoms Heme: No abnormal bleeding/bruising Endo: No fatigue Skin: No jaundice Medications Current Inpatient Medications Medications (Trade) Dose Ordered Sig/Joan Route Start Time Stop Time Status Last Admin Dose Admin Acetaminophen (Tylenol Tab) 650 mg Q4H PRN PO 05/01/16 09:45 05/31/16 09:44 05/01/16 19:43 650 MG Ondansetron HCl (Zofran Inj) 4 mg Q6H PRN IV 05/01/16 09:45 05/31/16 09:44 05/04/16 04:17 4 MG Benzonatate (Tessalon Perles Cap) 100 mg TID PO 05/01/16 14:00 05/31/16 13:59 05/04/16 19:18 100 MG Salmeterol Xinafoate/ Fluticasone (Advair Diskus 250/50 Inh) 2 puff BID INH 05/01/16 21:00 05/31/16 20:59 05/05/16 07:33 2 PUFF Insulin Aspart (novoLOG ASPART) ACHS SC 05/01/16 11:00 05/31/16 10:59 05/05/16 08:29 1 UNITS Insulin Glargine (Lantus Solostar Pen) 12 unit QAM SC 05/02/16 09:00 06/01/16 08:59 05/05/16 08:30 12 UNIT Albuterol/ Ipratropium (Duoneb) 3 ml QID PRN INH 05/01/16 09:45 05/31/16 09:44 Metoprolol Tartrate (Lopressor Tab) 37.5 mg BID PO 05/01/16 21:00 05/31/16 20:59 05/04/16 19:18 37.5 MG Prednisolone Acetate (Pred Forte 1% Oph Susp) 1 drops QAM OPL 05/02/16 09:00 06/01/16 08:59 05/05/16 07:33 1 DROPS Glucose (Glucose 40% Gel) 15-30 GRAMS 15 GRAMS... UD PRN PO 05/01/16 11:45 05/31/16 11:44 Glucose (Glucose Chew Tab) 4-8 Tablets 4 Tabl... UD PRN PO 05/01/16 11:45 05/31/16 11:44 Dextrose (Dextrose 50% 50ML Syringe) 25-50ML OF 50% DW IV FOR... UD PRN IV 05/01/16 11:45 05/31/16 11:44 Glucagon (Glucagon Inj) 1 mg UD PRN SQ 05/01/16 11:45 05/31/16 11:44 Albuterol (Ventolin Hfa Inhaler) 1 puffs Q4H PRN INH 05/02/16 10:15 06/01/16 10:14 Pantoprazole Sodium (Protonix Tab) 40 mg BID PO 05/04/16 09:00 06/03/16 08:59 05/04/16 19:18 40 MG Colestipol HCl (Colestid Tab) 2 gm BID@1000,2200 PO 05/04/16 10:00 06/03/16 09:59 05/04/16 21:23 2 GM Epoetin Hakan (Procrit Inj) 10,000 units TODAY@0730 IV. 05/05/16 07:30 05/05/16 18:00 Objective Vital Signs Date Time Temp Pulse Resp B/P Pulse Ox O2 Delivery O2 Flow Rate FiO2 05/05/16 12:00 68 159/74 05/05/16 11:45 66 158/71 05/05/16 11:30 69 150/61 05/05/16 11:15 68 129/64 05/05/16 11:00 65 152/60 2/8/17 10:45 66 150/65 05/05/16 10:30 66 151/59 05/05/16 10:15 67 145/59 05/05/16 10:00 64 153/68 05/05/16 09:52 64 155/70 05/05/16 08:30 90 Room Air 05/05/16 08:02 36.9 65 18 144/69 90 Room Air 05/05/16 00:29 37.1 65 20 115/68 92 Nasal Cannula 2.5 05/04/16 20:00 3.0 05/04/16 20:00 36.9 65 20 138/67 90 Room Air 05/04/16 18:33 37.0 66 24 90 05/04/16 16:07 37.0 66 24 127/54 90 Room Air 05/04/16 16:00 Room Air Physical Exam General Appearance: no apparent distress Neck: no JVD Respiratory/Chest: lungs clear Cardiovascular: regular rate, rhythm, no JVD, no murmur Abdomen: non tender, no organomegaly Extremities: non-tender Neurologic/Psych: alert, normal mood/affect, oriented x 3 Skin: no jaundice Laboratory Results Last 24 Hours Test 05/04/16 16:18 05/04/16 20:21 05/05/16 06:02 05/05/16 07:47 Bedside Glucose 87 mg/dl 129 mg/dl 101 mg/dl White Blood Count 3.84 K/uL Red Blood Count 2.28 M/uL Hemoglobin 7.4 g/dL Hematocrit 22.4 % Mean Corpuscular Volume 98.2 fL Mean Corpuscular Hemoglobin 32.5 pg Mean Corpuscular Hemoglobin Concent 33.0 g/dl Platelet Count 137 K/uL Mean Platelet Volume 9.8 fL Neutrophils (%) (Auto) 72.1 % Lymphocytes (%) (Auto) 15.6 % Monocytes (%) (Auto) 8.6 % Eosinophils (%) (Auto) 3.1 % Basophils (%) (Auto) 0.3 % Neutrophils # (Auto) 2.77 K/uL Lymphocytes # (Auto) 0.60 K/uL Monocytes # (Auto) 0.33 K/uL Eosinophils # (Auto) 0.12 K/uL Basophils # (Auto) 0.01 K/uL RDW Standard Deviation 66.4 fL RDW Coefficient of Variation 19.5 % Immature Granulocyte % (Auto) 0.3 % Immature Granulocyte # (Auto) 0.01 K/uL Polychromasia 1+ Anisocytosis PRESENT Assessment and Plan Ms. Vealsco is a 71 yr old female who presented with melena in the setting of supratherapeudic INR. Plan: 1. Continue to defer endoscopy. 2. Continue Colestid 2 grams BID. Can be adjusted up if diarrhea persists. Attg addendum: I interviewed an examined pt, reviewed chart and labs. She contines to have diarrhea, althoguh mild inmprovement. Will titrate anti- diarrheals.
[2016-05-05] MEDS: PANTOprazole SOD 40 MG TAB PO SCH (14:11)
[2016-05-05] MEDS: METOPROLOL TARTRATE 25 MG TAB PO SCH ×2 (14:12→21:49)
--- NOTE | 2016-05-05 14:48 | Progress Note ---
Internal Med Progress Note Date of Service: May 05, 2016. Provider Documentation: SUBJECTIVE: Patient is sitting in her bed and does not seem to be in any distress. Breathing comfortably. Had stomach upset and nausea following taking Questran so does not want to take it. Has intermittent diarrhea. No other new change or complaint. OBJECTIVE: Vital Signs-as noted below Examination: General Appearance: Alert/Awake, In no apparent distress HEENT: Normocephalic, Eyes, Ears, Nose & Throat are normal looking Neck: Supple, Midline trachea Respiratory/Chest: lungs clear, normal breath sounds, no respiratory distress, no accessory muscle use Cardiovascular: regular rate, rhythm, no edema, no murmur Abdomen: normal bowel sounds, non tender, soft Extremities: normal inspection, no pedal edema Neurologic/Psychiatric: no motor/sensory deficits, alert, normal mood/affect Skin: normal color Lab data as noted below. ASSESSMENT & PLAN: 71 year old female with PMH of ESRD on HD, anemia of chronic disease, moderate COPD on nocturnal O2 with ongoing tobacco abuse, paroxysmal atrial fibrillation on Coumadin, insulin dependent Diabetes admitted secondary to anemia Anemia, multifactorial: Likely has GI bleed as an acute etiology. S/P 5 units PRBC transfusions. -H/H is gradually creeping upwards towards normal. -Noted GI input. No plans for any intervention is planned so far although she is a high risk for bleed. -Stool occult is positive -C. Diff is negative -Continue Protonix. Warfarin Induced Coagulopathy/Supra-therapeutic INR: INR is normal now. -Warfarin is on hold due to GI Bleed. GI Bleed: Patient presented with diarrhea, dark stools & has heme positive stools. -Off Questran now. -She has had endoscopy and colonoscopy recently but GI bleed brought her to hospital. -She was given triple therapy for H. pylori infection at that time for 14 days (course completed) -C. Diff is negative -Enteric pathogens are negative. ESRD on HD: Regular schedule of Tuesday, , Tuesday -Appreciate nephrology input for this patient -Procrit as per nephro -Monitoring fluid status closely. Hypertension: Holding amlodipine/clonidine/ARB -Continue b-mariana -Monitor BP with significant anemia Insulin Dependent Diabetes: Patient takes Lantus 26 units as well as Novolog sliding scale -Monitoring BS closely and cover as per sliding scale. Paroxysmal A. Fib : Patient takes Coumadin regularly which is on hold now due to GI bleed. HR is stable. -Vitamin K and PCC as above -Continue b-mariana COPD: Stable.Uses nocturnal O2, now requiring during the day. Ongoing tobacco use -Continue home inhalers, may need nebulizers if breathing status worsens DVT Prophylaxis: SCDs FULL CODE Disposition: Clinically stable for discharge. Requested discharge planning evaluation Vital Signs: Date Time Temp Pulse Resp B/P Pulse Ox O2 Delivery O2 Flow Rate FiO2 05/05/16 12:45 64 154/69 05/05/16 12:30 66 158/66 05/05/16 12:15 67 153/61 05/05/16 12:00 68 159/74 05/05/16 11:45 66 158/71 05/05/16 11:30 69 150/61 05/05/16 11:15 68 129/64 05/05/16 11:00 65 152/60 05/05/16 10:45 66 150/65 05/05/16 10:30 66 151/59 05/05/16 10:15 67 145/59 05/05/16 10:00 64 153/68 05/05/16 09:52 64 155/70 05/05/16 08:30 90 Room Air 05/05/16 08:02 36.9 65 18 144/69 90 Room Air 05/05/16 00:29 37.1 65 20 115/68 92 Nasal Cannula 2.5 05/04/16 20:00 3.0 05/04/16 20:00 36.9 65 20 138/67 90 Room Air 05/04/16 18:33 37.0 66 24 90 05/04/16 16:07 37.0 66 24 127/54 90 Room Air 05/04/16 16:00 Room Air Lab Results: Results Past 24 Hours Test 05/04/16 16:18 05/04/16 20:21 05/05/16 06:02 05/05/16 07:47 Range/Units Bedside Glucose 87 129 101 70-90 mg/dl White Blood Count 3.84 4.8-10.8 K/uL Red Blood Count 2.28 4.2-5.4 M/uL Hemoglobin 7.4 12.0-16.0 g/dL Hematocrit 22.4 37-47 % Mean Corpuscular Volume 98.2 80-100 fL Mean Corpuscular Hemoglobin 32.5 25-34 pg Mean Corpuscular Hemoglobin Concent 33.0 32-36 g/dl Platelet Count 137 130-400 K/uL Mean Platelet Volume 9.8 7.4-10.4 fL Neutrophils (%) (Auto) 72.1 % Lymphocytes (%) (Auto) 15.6 % Monocytes (%) (Auto) 8.6 % Eosinophils (%) (Auto) 3.1 % Basophils (%) (Auto) 0.3 % Neutrophils # (Auto) 2.77 1.4-6.5 K/uL Lymphocytes # (Auto) 0.60 1.2-3.4 K/uL Monocytes # (Auto) 0.33 0.11-0.59 K/uL Eosinophils # (Auto) 0.12 0-0.5 K/uL Basophils # (Auto) 0.01 0-0.2 K/uL RDW Standard Deviation 66.4 36.4-46.3 fL RDW Coefficient of Variation 19.5 11.5-14.5 % Immature Granulocyte % (Auto) 0.3 % Immature Granulocyte # (Auto) 0.01 0.00-0.02 K/uL Polychromasia 1+ Anisocytosis PRESENT Test 05/05/16 13:28 Range/Units Bedside Glucose 117 70-90 mg/dl
[2016-05-05 15:01] LABS: ISOSPORA+CYCLOSPORA NOT DETECTED; O&P GIARDIA AG NOT DETECTED (NOT DETECTED)
[2016-05-06] MEDS: BENZONATATE 100MG CAP PO SCH ×2 (07:27→14:18)
[2016-05-06] MEDS: METOPROLOL TARTRATE 25 MG TAB PO SCH (07:27)
[2016-05-06] MEDS: PrednisoLONE ACET 1% OP SUSP 5 ML BTL OPL SCH (07:27)
[2016-05-06 07:33] VITALS: BP 154/67; PULSE 68; TEMP 37.3; O2SAT 91
[2016-05-06 07:47] LABS: HEMATOCRIT 24.4 % (37-47); MEAN CELL VOLUME 98.8 fL (80-100); MEAN CORPUSCULAR HEMOGLOBIN 32.4 pg (25-34); MEAN CORPUSCULAR HGB CONC 32.8 g/dl (32-36); MEAN PLATELET VOLUME 9.5 fL (7.4-10.4); PLATELET COUNT 148 K/uL (130-400); RED BLOOD COUNT 2.47 M/uL (4.2-5.4); WHITE BLOOD COUNT 2.83 K/uL (4.8-10.8)
[2016-05-06] MEDS ORDERED: PANTOprazole SOD 40 MG TAB PO SCH (08:00)
[2016-05-06] MEDS: FLUTICASONE/SALMETEROL 250/50 (ADVAIR) 14 PUFF/1 INHALER INH SCH (09:19)
[2016-05-06] MEDS: INSULIN GLARGINE SOLOSTAR 100 UNITS/ML 3 ML PEN SC SCH (09:24)
[2016-05-06] MEDS: INSULIN ASPART 100 UNITS/ML 3 ML PEN SC SCH ×2 (09:24→12:36)
[2016-05-06] MEDS: COLESTIPOL HCL 1 GM TAB PO SCH (09:32)
[2016-05-06] MEDS ORDERED: DIPHENOXYLATE/ATROPINE 2.5/0.025MG TAB PO ONE (13:00)
--- NOTE | 2016-05-06 14:38 | Progress Note ---
Internal Med Progress Note Date of Service: May 06, 2016. Provider Documentation: SUBJECTIVE: Patient is sitting in her bed and does not seem to be in any distress. Breathing comfortably. Had stomach upset and nausea following taking Questran so does not want to take it. Has intermittent diarrhea. No other new change or complaint. OBJECTIVE: Vital Signs-as noted below Examination: General Appearance: Alert/Awake, In no apparent distress HEENT: Normocephalic, Eyes, Ears, Nose & Throat are normal looking Neck: Supple, Midline trachea Respiratory/Chest: lungs clear, normal breath sounds, no respiratory distress, no accessory muscle use Cardiovascular: regular rate, rhythm, no edema, no murmur Abdomen: normal bowel sounds, non tender, soft Extremities: normal inspection, no pedal edema Neurologic/Psychiatric: no motor/sensory deficits, alert, normal mood/affect Skin: normal color Lab data as noted below. ASSESSMENT & PLAN: 71 year old female with PMH of ESRD on HD, anemia of chronic disease, moderate COPD on nocturnal O2 with ongoing tobacco abuse, paroxysmal atrial fibrillation on Coumadin, insulin dependent Diabetes admitted secondary to anemia Anemia, multifactorial: Likely has GI bleed as an acute etiology. S/P 5 units PRBC transfusions. -H/H is gradually creeping upwards towards normal. -Noted GI input. No plans for any intervention is planned so far although she is a high risk for bleed. -Stool occult is positive -C. Diff is negative -Continue Protonix. Warfarin Induced Coagulopathy/Supra-therapeutic INR: INR is normal now. -Warfarin is on hold due to GI Bleed. GI Bleed: Patient presented with diarrhea, dark stools & has heme positive stools. -Off Questran now. -She has had endoscopy and colonoscopy recently but GI bleed brought her to hospital. -She was given triple therapy for H. pylori infection at that time for 14 days (course completed) -C. Diff is negative -Enteric pathogens are negative. ESRD on HD: Regular schedule of Tuesday, , Tuesday -Appreciate nephrology input for this patient -Procrit as per nephro -Monitoring fluid status closely. Hypertension: Holding amlodipine/clonidine/ARB -Continue b-mariana -Monitor BP with significant anemia Insulin Dependent Diabetes: Patient takes Lantus 26 units as well as Novolog sliding scale -Monitoring BS closely and cover as per sliding scale. Paroxysmal A. Fib : Patient takes Coumadin regularly which is on hold now due to GI bleed. HR is stable. -Vitamin K and PCC as above -Continue b-mariana COPD: Stable.Uses nocturnal O2, now requiring during the day. Ongoing tobacco use -Continue home inhalers, may need nebulizers if breathing status worsens DVT Prophylaxis: SCDs FULL CODE Disposition: Clinically stable for discharge later today. Follow up with PCP on 05/13/2016 @ 12.50 PM. Follow up for Dialysis as per the dialysis schedule set by Dr. Tijerina. Vital Signs: Date Time Temp Pulse Resp B/P Pulse Ox O2 Delivery O2 Flow Rate FiO2 05/06/16 07:33 37.3 68 20 154/67 91 Nasal Cannula 2.0 05/06/16 07:15 Nasal Cannula 2.0 05/06/16 00:00 Nasal Cannula 3.0 05/05/16 23:42 36.8 95 Nasal Cannula 2.0 05/05/16 21:47 73 156/66 05/05/16 20:00 Nasal Cannula 3.0 05/05/16 15:19 Room Air Lab Results: Results Past 24 Hours Test 05/05/16 16:40 05/05/16 21:45 05/06/16 07:36 05/06/16 07:50 Range/Units Bedside Glucose 177 130 90 70-90 mg/dl White Blood Count 2.83 4.8-10.8 K/uL Red Blood Count 2.47 4.2-5.4 M/uL Hemoglobin 8.0 12.0-16.0 g/dL Hematocrit 24.4 37-47 % Mean Corpuscular Volume 98.8 80-100 fL Mean Corpuscular Hemoglobin 32.4 25-34 pg Mean Corpuscular Hemoglobin Concent 32.8 32-36 g/dl RDW Standard Deviation 68.3 36.4-46.3 fL RDW Coefficient of Variation 19.2 11.5-14.5 % Platelet Count 148 130-400 K/uL Mean Platelet Volume 9.5 7.4-10.4 fL Test 05/06/16 11:33 Range/Units Bedside Glucose 86 70-90 mg/dl
--- NOTE | 2016-05-06 15:17 | Discharge Instructions ---
Discharge Instructions Admission Reason for Admission: Anemia Of Chronic Disease; End Stage Renal Disease Discharge Discharge Diagnosis / Problem: Anemia (Resolving) Discharge Goals Goal(s): Decrease discomfort, Improve function, Increase independence, Improve disease control, Improve nutritional status, Learn about illness, Diagnostic testing, Therapeutic intervention Activity Recommendations Activity Limitations: resume your previous activity (As Tolerated.) Lifting Limitations: no more than 5 pounds Shower/Bathe: no limitations (Follow Fall precautions) . Instructions / Follow-Up Instructions / Follow-Up Follow up with PCP on 05/13/2016 @ 12.50 PM. Follow up for Dialysis as per the dialysis schedule set by Dr. Tijerina. Current Hospital Diet Patient's current hospital diet: Renal Diet, AHA Diet (Heart Healthy) Discharge Diet Recommended Diet: AHA Diet (Heart Healthy), Diabetes Type 1 Diet, Renal Diet Fluid Restriction: 1800 ml (7 cups) Pending Studies Studies pending at discharge: no Laboratory Results Hemoglobin A1c Test 04/13/16 05:20 Range/Units Estimated Average Glucose 97 mg/dl Hemoglobin A1c 5.0 4.5-5.6 % Medical Emergencies . Who to Call and When: Medical Emergencies: If at any time you feel your situation is an emergency, please call 911 immediately. . Non-Emergent Contact Non-Emergency issues call your: Primary Care Provider Call Non-Emergent contact if: temperature is above 100.5, you have any medication questions . . "Provider Documentation" section prepared by Robe Chau. VTE Core Measure Inpt VTE Proph given/why not?: SCD's
--- NOTE | 2016-05-06 15:21 | Discharge Summary ---
Discharge Summary Admission Date: May 01, 2016 at 09:46 Discharge Date: May 06, 2016 Discharge Disposition: Home with services Principal Diagnosis: Anemia Warfarin Induced Coagulopathy (Resolved) GI Bleed Secondary Diagnoses/Problems: ESRD (On Dialysis) Hypertension Diabetes Atrial Fibrillation COPD Procedures: NONE Vaccinations: NONE Consultations: Nephrology GI Consult Pending Studies/Follow-Up: Follow H/H closely. May need follow up with GI as outpatient. Medication Reconciliation Continued Medications: Albuterol Hfa (Ventolin Hfa) 200 Puffs/73091 Mcg Aers 1 PUFFS INH Q4, #1 INHALER Amlodipine (Norvasc) 10 Mg Tab 10 MG PO QAM Benzonatate (Benzonatate) 100 Mg Cap 100 MG PO TID for 5 Days, #15 CAP Clonidine Hcl (Catapres) 0.1 Mg Tab 0.1 MG PO QAM, TAB Cyanocobalamin (Cyanocobalamin) 1,000 Mcg/Ml Inj 1000 MCG IM MONTHLY Epoetin Hakan (Procrit) 10,000 Units Inj per dialysis clinic Ergocalciferol (Vitamin D 49219 Unit) 50,000 Unit Cap 37903 UNIT PO MONTHLY, CAP 9th Fluticasone Prop/Salmeterol (Advair Diskus 250/50 60 Dose) 1 Ea Aerp 2 PUFF INH BID, INHALER Furosemide (Furosemide) 40 Mg Tab 40 MG PO DAILY, #90 Insulin Aspart (Novolog Flexpen) 100 Units/Ml Inj UNITS SQ UD Insulin Glargine (Lantus) 100 Unit/Ml Inj 26 UNITS SC QAM, VIAL Ipratropium-Albuterol (Duoneb) 3 Ml Nebu 1 TREATMENT INH QID PRN for SOB/Wheezing Lidocaine-Prilocaine (Lwsuyvrcp-Tuhtkzjacn-Xtnw 2.5-2.5 %) 1 Cre Cre #180 Losartan Potassium (Cozaar) 100 Mg Tab 100 MG PO QAM, TAB Metoprolol Tartrate (Lopressor) (Lopressor) 25 Mg Tab 37.5 MG PO BID, TAB Ondansetron Hcl (Zofran) 8 Mg Tab 8 MG PO Q8 PRN for Nausea or Vomiting, TAB Oxygen (Oxygen) Gas 2.5 LITERS NA HS Pantoprazole (Pantoprazole Sodium) 40 Mg Tab 1 TAB PO DAILY, #14 Prednisolone Acetate (Ophth) (Pred Forte 1% Oph) 1 % Neena 1 DROPS OPL QAM, ML Warfarin Sod (Coumadin) 5 Mg Tab 5 MG PO DAILY Admission Information HPI (per Admitting provider): This is a 71 year old female with PMH of ESRD on HD, anemia of chronic disease, moderate COPD on nocturnal O2 with ongoing tobacco abuse, paroxysmal atrial fibrillation on Coumadin, insulin dependent DM2 presented with +weakness, + diarrhea, some shortness of breath; was recently admitted here at [facility] 2 weeks prior for a COPD exacerbation and shortness of breath. Since her discharge, she was doing well with her breathing. She did notice diarrhea, which had worsened in the past week. She has been getting dialysis regularly since discharge, and as per nephrology, last blood work showed a Hgb of ~7.9. Hgb noted today to be 4.4. Patient is denying chest pain, breathing status close to baseline. No nausea, vomiting. +Diarrhea, dark and loose stools Physical Exam (per Admitting): General Appearance: no apparent distress, + pertinent finding (+weak, +pale , cool skin) Head: normocephalic, atraumatic Eyes: normal inspection ENT: hearing grossly normal Respiratory/Chest: no respiratory distress, no accessory muscle use, + decreased breath sounds, + crackles (mild crackles at bases) Cardiovascular: regular rate, rhythm, no edema, no murmur Abdomen/GI: normal bowel sounds, non tender, soft Extremities/Musculoskelatal: no calf tenderness, normal capillary refill, no pedal edema Neurologic/Psych: no motor/sensory deficits, alert, normal mood/affect Hospital Course 71 year old female with PMH of ESRD on HD, anemia of chronic disease, moderate COPD on nocturnal O2 with ongoing tobacco abuse, paroxysmal atrial fibrillation on Coumadin, insulin dependent Diabetes admitted secondary to anemia Anemia, multifactorial: Likely has GI bleed as an acute etiology. S/P 5 units PRBC transfusions. -H/H is gradually creeping upwards towards normal. -Noted GI input. No plans for any intervention is planned so far although she is a high risk for bleed. -Stool occult is positive -C. Diff is negative -Continue Protonix. Warfarin Induced Coagulopathy/Supra-therapeutic INR: INR is normal now. -Warfarin is on hold due to GI Bleed. GI Bleed: Patient presented with diarrhea, dark stools & has heme positive stools. -Off Questran now. -She has had endoscopy and colonoscopy recently but GI bleed brought her to hospital. -She was given triple therapy for H. pylori infection at that time for 14 days (course completed) -C. Diff is negative -Enteric pathogens are negative. ESRD on HD: Regular schedule of Tuesday, , Tuesday -Appreciate nephrology input for this patient -Procrit as per nephro -Monitoring fluid status closely. Hypertension: Holding amlodipine/clonidine/ARB -Continue b-mariana -Monitor BP with significant anemia Insulin Dependent Diabetes: Patient takes Lantus 26 units as well as Novolog sliding scale -Monitoring BS closely and cover as per sliding scale. Paroxysmal A. Fib : Patient takes Coumadin regularly which is on hold now due to GI bleed. HR is stable. -Vitamin K and PCC as above -Continue b-mariana COPD: Stable.Uses nocturnal O2, now requiring during the day. Ongoing tobacco use -Continue home inhalers, may need nebulizers if breathing status worsens DVT Prophylaxis: SCDs FULL CODE Disposition: Clinically stable for discharge later today. Follow up with PCP on 05/13/2016 @ 12.50 PM. Follow up for Dialysis as per the dialysis schedule set by Dr. Tijerian. Total time spent on discharge = 40 minutes. This includes examination of the patient, discharge planning, medication reconciliation, and communication with other providers. Discharge Instructions Discharge Goals Goal(s): Decrease discomfort, Improve function, Increase independence, Improve disease control, Improve nutritional status, Learn about illness, Diagnostic testing, Therapeutic intervention Activity Recommendations Lifting Limitations: no more than 5 pounds Shower/Bathe: no limitations (Follow Fall precautions) . Instructions / Follow-Up Instructions / Follow-Up Follow up with PCP on 05/13/2016 @ 12.50 PM. Follow up for Dialysis as per the dialysis schedule set by Dr. Tijerina. Current Hospital Diet Patient's current hospital diet: Renal Diet, AHA Diet (Heart Healthy) Additional Copies To Noam Armando M.D., Kerim I.,
[2016-05-06 15:31] VITALS: BP 166/85; PULSE 65; TEMP 36.9; O2SAT 90
[2016-05-06] MEDS ORDERED: LMTHP PO (16:08)
[2016-05-06 17:03] VITALS: BP 166/85; PULSE 65; TEMP 36.9; O2SAT 90
[2016-05-06] MEDS ORDERED: DIPHENOXYLATE/ATROPINE 2.5/0.025MG TAB PO SCH (20:00)
[2016-05-16] MEDS ORDERED: LEVO1TAB34 PO (12:22)
[2016-05-16] MEDS ORDERED: PRED10TA PO (12:22)
[2016-05-16] MEDS ORDERED: INSDGI SC (12:22)
[2016-05-16] MEDS ORDERED: COLE1TAB PO (12:57)
[2016-07-17] MEDS ORDERED: LVQ500 PO (11:36)
[2016-07-17] MEDS ORDERED: PRD20 PO (11:36)
[2016-11-01] MEDS ORDERED: LCTX PO ×2 (11:20→11:35)
[2016-11-01] MEDS ORDERED: LVQ500 PO ×2 (11:20→11:35)
[2016-11-01] MEDS ORDERED: WARF5TAB90 PO ×2 (11:20→11:35)
== END 2016-05-06 16:30 | disposition home or self-care (01) | DRG 813 ==
LOC: ENRESERVTM → ENRESERVDT → EDBD 07:33 → C.EDB 07:35 → C.2E 09:46 → C.4E 05-04 18:43
PROVIDERS: ADMIT Family Medicine; ATTEND Emergency Medicine
DX: D68.32 Hemorrhagic disorder due to extrinsic circulating anticoagulants (principal); T45.515A Adverse effect of anticoagulants, initial encounter; K62.5 Hemorrhage of anus and rectum; I50.32 Chronic diastolic (congestive) heart failure; I12.0 Hypertensive chronic kidney disease with stage 5 chronic kidney disease or end stage renal disease; B00.51 Herpesviral iridocyclitis; I48.0 Paroxysmal atrial fibrillation; J44.9 Chronic obstructive pulmonary disease, unspecified; D63.1 Anemia in chronic kidney disease; E78.00 Pure hypercholesterolemia, unspecified; I34.0 Nonrheumatic mitral (valve) insufficiency; M19.90 Unspecified osteoarthritis, unspecified site; I49.3 Ventricular premature depolarization; Z79.01 Long term (current) use of anticoagulants; Z99.2 Dependence on renal dialysis; Y92.009 Unspecified place in unspecified non-institutional (private) residence as the place of occurrence of the external cause

== ENCOUNTER 2016-05-11 06:19 | Inpatient (IN) | payer OTHER ==
[2016-05-11] VITALS (19 sets, daily range): BP systolic 132–171; BP diastolic 62–91; PULSE 68–89; TEMP 36.7–37.9; O2SAT 90–99; Ht 167.6 cm; Wt 90.2 kg
[~2016-05-11] VITALS: Ht 167.6 cm; Wt 90.2 kg
[~2016-05-11 06:19] MED LIST changes: -ALBUAER19 INH; -AMX500 PO; -BXN500 PO; -CALC667C4 PO; -ERGO1CAP35 PO; +ERGO500037 PO; -FRS/40 PO; -LIDO1CRE24 TOP; +LIDO1CRE58 TOP; +LMTHP PO; +LSX40 PO; -PANT40TA PO; +PRT/40 PO; -VALA1TAB31 PO; +VNTHFA/IN INH
[2016-05-11] MEDS ORDERED: ALBUT/IPRATROP 3MG/0.5MG NEB 3 ML VIAL INH ONE (07:15)
[2016-05-11 07:56] LABS: BASO % 0.4 %; BASO ABS # 0.01 K/uL (0-0.2); EOS % 0.4 %; HEMATOCRIT 23.8 % (37-47); IG% 0.4 %; LYMPH % 14.6 %; LYMPH ABS # 0.33 K/uL (1.2-3.4); MEAN CELL VOLUME 95.6 fL (80-100); MEAN CORPUSCULAR HEMOGLOBIN 30.5 pg (25-34); MEAN CORPUSCULAR HGB CONC 31.9 g/dl (32-36); MEAN PLATELET VOLUME 8.7 fL (7.4-10.4); MONO % 17.7 %; NEUT % 66.5 %; PLATELET COUNT 159 K/uL (130-400); RED BLOOD COUNT 2.49 M/uL (4.2-5.4); WHITE BLOOD COUNT 2.26 K/uL (4.8-10.8)
[2016-05-11 08:03] LABS: INR 1.1 (0.9-1.1); PARTIAL THROMBOPLASTIN RATIO 1.2; PROTHROMBIN TIME (PATIENT) 11.6 SECONDS (9.0-12.0)
[2016-05-11 08:22] LABS: ALB/GLOB RATIO 0.8 (0.9-2); BUN/CREATININE RATIO 4.2 (10-20); CALCIUM 7.1 mg/dl (8.5-10.1); CKMB/CK RATIO 1.1 (0-3.0); MAGNESIUM 2.2 mg/dl (1.8-2.4); PHOSPHORUS 5.1 mg/dl (2.5-4.9); POTASSIUM 4.2 mmol/L (3.5-5.1)
--- NOTE | 2016-05-11 08:36 | EMERGENCY ROOM VISIT NOTE ---
ED Visit Note First contact with patient: 07:08 I did evaluate and examine this patient myself. I did guide management for the patient. I agree with the PA's assessment as discussed. Please see the PAs dictation for further details. I did independently review the 12-lead EKG, x- rays and blood work.
[2016-05-11 08:48] LABS: ANISOCYTOSIS PRESENT; COMPLETE YES; LARGE PLATELETS 1+; POIKILOCYTOSIS PRESENT
--- NOTE | 2016-05-11 08:57 | DIAGNOSTIC IMAGING REPORT ---
CHEST 2 VIEWS ROUTINE CLINICAL HISTORY: EVALUATE RESPIRATORY DISTRESS. DYSPNEA dyspnea COMPARISON STUDY: 05/01/2016 FINDINGS: Mild cardia megaly. Slightly progressive interstitial change in the mid to lower lung regions bilaterally. Potential early parenchymal infiltrate left base. Very subtle blunting lateral costophrenic angles. IMPRESSION: Developing bibasilar parenchymal infiltrates versus early congestive failure Electronically signed by: Stevo Sanchez M.D. 05/11/2016 8:56 AM Dictated Date/Time: 05/11/2016 8:54 AM
[2016-05-11] MEDS ORDERED: NITROGLYCERIN 0.4 MG SL PER TAB CHARGE SL PRN (10:00)
[2016-05-11] MEDS ORDERED: ONDANSETRON INJ 2 MG/ML 2 ML VIAL IV PRN (10:00)
[2016-05-11] MEDS ORDERED: ACETAMINOPHEN 325 MG TAB PO PRN (10:00)
[2016-05-11] MEDS ORDERED: GLUCAGON FOR INJ 1 MG VIAL SQ PRN (10:15)
[2016-05-11] MEDS ORDERED: GLUCOSE 40% GEL 15 GM TUBE PO PRN (10:15)
[2016-05-11] MEDS ORDERED: GLUCOSE 10 TABS/TUBE PO PRN (10:15)
[2016-05-11] MEDS ORDERED: DEXTROSE 50% 50 ML SYR IV PRN (10:15)
--- NOTE | 2016-05-11 10:23 | EMERGENCY ROOM VISIT NOTE ---
History First contact with patient: 07:08 Chief Complaint: RESPIRATORY PROBLEMS Stated Complaint: BREATHING DIFFICULTY Nursing Triage Summary: patient began having SOB around 2am. HX COPD. recently discharged from here for similar symptoms. was due for dialysis today, Dialysis Tuesday, tuesday History of Present Illness The patient is a 71 year old female, history of COPD, end-stage renal disease on dialysis, paroxysmal atrial fibrillation on Coumadin and insulin-dependent diabetes who presents to the emergency department with complaint of shortness of breath that started around 2 AM this morning. The patient her port that she has also had recent chills. She was discharged from our facility approximately 1 week ago for a GI bleed, receiving 5 units of packed red blood cells. She denies any persistent bloody stool. The patient is due for dialysis today. She currently denies any significant chest tightness or pain. She has not noticed any increased urinary frequency, urgency or dysuria. The patient is on home O2. She reports that a home nebulizer treatment and treatment en route by ambulance did not do anything for her shortness of breath. She denies history of congestive heart failure. Review of Systems HEENT: Denies dizziness, visual problems, hearing loss, tinnitus. Denies difficulty swallowing or oral lesions. PULMONARY: Reports nonproductive cough, shortness of breath and sputum production without hemoptysis. CARDIOVASCULAR: Denies chest pain, palpitations, dyspnea on exertion, orthopnea or peripheral edema. GASTROINTESTINAL: Denies diarrhea, constipation, nausea, vomiting, or abdominal pain. GENITOURINARY: Denies dysuria, frequency, urgency or nocturia. NEUROLOGIC: Denies history of epilepsy, CVA, TIA or chronic headaches. MUSCULOSKELETAL: Denies history of joint tenderness/swelling. SKIN: Denies rashes or lesions. PSYCHIATRIC: Denies history of depression or mental illness. ENDOCRINE: History of diabetes. 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 (12) Hypertension Nos (13) Moderate mitral regurgitation (14) Obesity (15) Osteoarthritis (16) Pancreatic cyst (17) Psoriasis (18) Renal cyst (19) SOB (shortness of breath) Surgical Problems: (1) H/O colonoscopy (2) H/O nasal polypectomy (3) History of cataract surgery (4) S/P appendectomy (5) S/P cholecystectomy (6) S/P left oophorectomy (7) S/P ASH (total abdominal hysterectomy) Family History Diabetes mellitus FATHER MOTHER BROTHER FH: cancer BROTHER FH: heart disease FATHER Hypertension BROTHER Kidney disease BROTHER Social History Smoking Status: Light Tobacco Smoker Drug Use: none Marital Status: Housing Status: lives with family Occupation Status: retired Current/Historical Medications Scheduled Albuterol Hfa (Ventolin Hfa), 1 PUFFS INH Q4 Amlodipine (Norvasc), 10 MG PO QAM Clonidine Hcl (Catapres), 0.1 MG PO QAM Cyanocobalamin (Cyanocobalamin), 1,000 MCG IM MONTHLY Diphenoxylate/Atropine (Diphenoxylate/Atropine 2.5-0.025 mg), 1 TAB PO BID Ergocalciferol (Vitamin D 25527 Unit), 50,000 UNIT PO MONTHLY Fluticasone Prop/Salmeterol (Advair Diskus 250/50 60 Dose), 2 PUFF INH BID Furosemide (Furosemide), 40 MG PO DAILY Insulin Aspart (Novolog Flexpen), UNITS SQ UD Insulin Glargine (Lantus), 26 UNITS SC QAM Losartan Potassium (Cozaar), 100 MG PO QAM Metoprolol Tartrate (Lopressor) (Lopressor), 37.5 MG PO BID Oxygen (Oxygen), 2.5 LITERS NA HS Pantoprazole (Pantoprazole Sodium), 1 TAB PO DAILY Prednisolone Acetate (Ophth) (Pred Forte 1% Oph), 1 DROPS OPL QAM Warfarin Sod (Coumadin), 5 MG PO DAILY Scheduled PRN Ipratropium-Albuterol (Duoneb), 1 TREATMENT INH QID PRN for SOB/Wheezing Lidocaine-Prilocaine (Dnffildww-Posjilzfnw-Oodj 2.5-2.5 %), 1 APPLN TOP UD PRN for PRIOR TO DIALYSIS Ondansetron Hcl (Zofran), 8 MG PO Q8 PRN for Nausea or Vomiting Miscellaneous Medications Epoetin Hakan (Procrit) Allergies Coded Allergies: No Known Allergies (Verified , 05/11/16) Physical Exam Vital Signs Date Time Temp Pulse Resp B/P Pulse Ox O2 Delivery O2 Flow Rate FiO2 05/11/16 08:02 72 30 160/73 100 Nebulizer 10.0 05/11/16 07:44 68 20 90 Nasal Cannula 4.0 05/11/16 07:20 93 Nasal Cannula 4.0 05/11/16 07:19 93 Nasal Cannula 4.0 05/11/16 06:38 71 05/11/16 06:33 37.5 72 22 158/75 93 Nasal Cannula 4.0 05/11/16 06:33 93 Nasal Cannula 4.0 Physical Exam CONSTITUTIONAL: Healthy and well nourished. Alert and oriented X 3 with positive affect. Patient appears in mild respiratory distress. She has audible wheezing without auscultation. Patient does have mild intercostal retractions. HEENT: Normocephalic, atraumatic. Pupils equal, round and reactive. Ears and nares are clear. No scleral icterus or conjunctival injection/pallor. NECK: Full active range of motion without discomfort. No JVD or carotid bruits appreciated. LYMPHATICS: No cervical chain adenopathy. RESPIRATORY: Patient has diffuse wheezing in all geller. No obvious crackles, rhonchi or stridor. CARDIOVASCULAR: Regular rate and rhythm with no murmurs, rubs or gallops. GASTROINTESTINAL: Bowel sounds present in all quadrants. Abdomen is protuberant but soft and nontender to palpation. MUSCULOSKELETAL: Full range of motion of all joints without discomfort. INTEGUMENTARY: No rash or other significant dermatologic conditions noted. hematologic: No ecchymosis or petechiae noted. NEUROLOGIC: Cranial nerves II-XII grossly intact. No focal neurologic deficits noted. Medical Decision & Procedures ER Provider Diagnostic Interpretation: My interpretation of an ECG shows a normal sinus rhythm of [address] elevation or other conduction abnormalities. My interpretation of a two-view chest x-ray shows bibasilar filtration versus early congestive failure. Radiologist report is as follows: CHEST 2 VIEWS ROUTINE CLINICAL HISTORY: EVALUATE RESPIRATORY DISTRESS. DYSPNEA dyspnea COMPARISON STUDY: 05/01/2016 FINDINGS: Mild cardia megaly. Slightly progressive interstitial change in the mid to lower lung regions bilaterally. Potential early parenchymal infiltrate left base. Very subtle blunting lateral costophrenic angles. IMPRESSION: Developing bibasilar parenchymal infiltrates versus early congestive failure Laboratory Results 05/11/16 07:39 Red Blood Count 2.49, Mean Corpuscular Volume 95.6, Mean Corpuscular Hemoglobin 30.5, Mean Corpuscular Hemoglobin Concent 31.9, Mean Platelet Volume 8.7, Neutrophils (%) (Auto) 66.5, Lymphocytes (%) (Auto) 14.6, Monocytes (%) (Auto) 17.7, Eosinophils (%) (Auto) 0.4, Basophils (%) (Auto) 0.4, Neutrophils # (Auto ) 1.50, Lymphocytes # (Auto) 0.33, Monocytes # (Auto) 0.40, Eosinophils # (Auto ) 0.01, Basophils # (Auto) 0.01 05/11/16 07:39 Test 05/11/16 07:39 White Blood Count 2.26 K/uL (4.8-10.8) Red Blood Count 2.49 M/uL (4.2-5.4) Hemoglobin 7.6 g/dL (12.0-16.0) Hematocrit 23.8 % (37-47) Mean Corpuscular Volume 95.6 fL (80-100) Mean Corpuscular Hemoglobin 30.5 pg (25-34) Mean Corpuscular Hemoglobin Concent 31.9 g/dl (32-36) Platelet Count 159 K/uL (130-400) Mean Platelet Volume 8.7 fL (7.4-10.4) Neutrophils (%) (Auto) 66.5 % Lymphocytes (%) (Auto) 14.6 % Monocytes (%) (Auto) 17.7 % Eosinophils (%) (Auto) 0.4 % Basophils (%) (Auto) 0.4 % Neutrophils # (Auto) 1.50 K/uL (1.4-6.5) Lymphocytes # (Auto) 0.33 K/uL (1.2-3.4) Monocytes # (Auto) 0.40 K/uL (0.11-0.59) Eosinophils # (Auto) 0.01 K/uL (0-0.5) Basophils # (Auto) 0.01 K/uL (0-0.2) RDW Standard Deviation 65.1 fL (36.4-46.3) RDW Coefficient of Variation 18.8 % (11.5-14.5) Immature Granulocyte % (Auto) 0.4 % Immature Granulocyte # (Auto) 0.01 K/uL (0.00-0.02) Large Platelets 1+ Poikilocytosis PRESENT Anisocytosis PRESENT Prothrombin Time 11.6 SECONDS (9.0-12.0) Prothromb Time International Ratio 1.1 (0.9-1.1) Activated Partial Thromboplast Time 31.3 SECONDS (21.0-31.0) Partial Thromboplastin Ratio 1.2 Anion Gap 13.0 mmol/L (3-11) Est Creatinine Clear Calc Drug Dose 5.1 ml/min Estimated GFR () 3.3 Estimated GFR (Non- 2.8 BUN/Creatinine Ratio 4.2 (10-20) Calcium Level 7.1 mg/dl (8.5-10.1) Phosphorus Level 5.1 mg/dl (2.5-4.9) Magnesium Level 2.2 mg/dl (1.8-2.4) Total Bilirubin 0.5 mg/dl (0.2-1) Aspartate Amino Transf (AST/SGOT) 16 U/L (15-37) Alanine Aminotransferase (ALT/SGPT) 16 U/L (12-78) Alkaline Phosphatase 81 U/L (45-117) Total Creatine Kinase 133 U/L (26-192) Creatine Kinase MB 1.4 ng/ml (0.5-3.6) Creatine Kinase MB Ratio 1.1 (0-3.0) Pro-B-Type Natriuretic Peptide 39863 pg/ml (0-900) Total Protein 5.8 gm/dl (6.4-8.2) Albumin 2.5 gm/dl (3.4-5.0) Globulin 3.3 gm/dl (2.5-4.0) Albumin/Globulin Ratio 0.8 (0.9-2) The above labs were reviewed. BNP is markedly elevated over 23,000. Troponin is normal. Hemoglobin and hematocrit are 7.6 and 23.8, respectively. Creatinine is 12. Medications Administered Medications (Trade) Dose Ordered Sig/Joan Route Start Time Stop Time Status Last Admin Dose Admin Albuterol/ Ipratropium (Duoneb) 12 ml ONE ONCE INH 05/11/16 07:15 05/11/16 07:18 DC 05/11/16 07:15 12 ML ED Course Patient history and physical exam were performed. Nurse's notes were reviewed. Vital signs were reviewed. The patient is febrile with a temperature of 37.5 C. O2 saturation is 93% on O2 via nasal cannula at 4 L/m. The patient is normotensive and not tachycardic. I also reviewed a portion of prior medical records, including the patient's last admission for a GI bleed where she received 5 units of packed red blood cells. She has also been admitted multiple times in the past for COPD exacerbation. IV access was established, and labs were drawn. The patient received an hour- long DuoNeb treatment. ECG did not show any acute findings. Point of care troponin was normal. Lab BNP was markedly elevated. Two-view chest x-ray is suggestive of early CHF versus bibasilar parenchymal infiltrates. The case was further discussed with Dr. Willard, ED attending physician, who suggested hospitalist evaluation. The case was then discussed with [facility] hospitalist group. Please see their dictation for further treatment and final disposition. Medical Decision The patient has a known history of COPD. He complains primarily of shortness of breath this morning. Review of prior medical history does not show any history of CHF, but the patient does have chest x-ray findings and laboratory studies suggestive of CHF. Patient also is end-stage renal disease on dialysis. Her creatinine is elevated this morning. She is due today for her dialysis treatment. The patient is also anemic with a prior history of GI bleed. Impression Primary Impression: CHF (congestive heart failure) Additional Impressions: COPD (chronic obstructive pulmonary disease) End stage renal disease on dialysis Departure Information Referrals Noam Armando M.D. (PCP) Patient Instructions My [facility] Problem Qualifiers Primary Impression: CHF (congestive heart failure) Congestive heart failure type: unspecified congestive heart failure type Congestive heart failure chronicity: acute Qualified Codes: I50.9 - Heart failure, unspecified Additional Impressions: COPD (chronic obstructive pulmonary disease) COPD type: COPD with acute exacerbation Qualified Codes: J44.1 - Chronic obstructive pulmonary disease with (acute) exacerbation
--- NOTE | 2016-05-11 11:49 | History and Physical ---
History & Physical Date & Time of Service: May 11, 2016 at 10:28 Chief Complaint: Breathing Difficulty Primary Care Physician: Noam Armando M.D. History of Present Illness Source: patient This is a 71 y/o female with PMHx of COPD with ongoing tobacco use, ESRD on HD, IDDM, PAF, HTN and other problems as outlined below who presents to the ED c/o worsening SOB since yesterday. Pt was recently admitted to [facility] from 05/01-05/06 with GI bleed. She was transfused 5 units however GI opted to hold off on any scopes. Pt was discharged in stable condition with HgB 8.0. Pt reports she has still been having dark, black stools at home. Yesterday she noticed worsening SOB. SOB is worse with laying flat and is unchanged with exertion. Sxs are assoc with chest tightness and wheezing. Pt tried using her nebulizer at home which only gave her temporary relief. She mentions bilat LE weakness but no worsening edema. Pt has a history of ESRD on HD (). She follows with nephroDr. Tijerina. Pt denies fever/chills, diaphoresis, chest pain, palpitations, abd pain, N/V, bladder issues, worsening LE edema, calf pain, lightheadedness/dizziness. In the ED, vitals are stable. Pt is saturating well on 4L O2. She is afebrile with no leukocytosis. HgB 7.6. K+ 4.2. BNP>23k. CXR bibasilar parenchymal infiltrates vs early CHF. Pt received duoneb in the ED which gave her significant relief. She will be admitted for further evaluation and treatment. Past Medical/Surgical History Medical Problems: (1) A-fib Permanent Comment: paroxysmal Status: Chronic (2) Adrenal adenoma Status: Chronic (3) Anemia of chronic disease Status: Chronic (4) AV fistula Status: Chronic (5) COPD, moderate Permanent Comment: 2L O2 at home Status: Chronic (6) Diastolic dysfunction with chronic heart failure Permanent Comment: echo 07/2014 - EF 60-65%, grade II diastolic dysfunction echo 06/2015 - diastolic function normal Status: Chronic (7) DM type 2 (diabetes mellitus, type 2) Status: Chronic (8) Dyslipidemia Status: Chronic (9) ESRD (end stage renal disease) on dialysis Status: Chronic (10) H/O cardiovascular stress test Permanent Comment: 05/2013 - negative for ischemia Status: Chronic (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 (12) Hypertension Nos Status: Chronic (13) Moderate mitral regurgitation Permanent Comment: echo 06/2015 - calcified mitral valve, moderate MR Status: Chronic (14) Obesity Status: Chronic (15) Osteoarthritis Status: Chronic (16) Pancreatic cyst Status: Chronic (17) Psoriasis Status: Chronic (18) Renal cyst Status: Chronic Surgical Problems: (1) H/O colonoscopy Permanent Comment: 2005, hyperplastic polyps repeat in 10 years Status: Chronic (2) H/O nasal polypectomy Status: Chronic (3) History of cataract surgery Status: Chronic (4) S/P appendectomy Permanent Comment: 1971 Status: Chronic (5) S/P cholecystectomy Permanent Comment: 1971 Status: Chronic (6) S/P left oophorectomy Permanent Comment: 1981 Status: Chronic (7) S/P ASH (total abdominal hysterectomy) Permanent Comment: For Fibroids Status: Resolved Family History Diabetes mellitus FATHER MOTHER BROTHER FH: cancer BROTHER FH: heart disease FATHER Hypertension BROTHER Kidney disease BROTHER Social History Smoking Status: Current Every Day Smoker (1 ppd x 55 years ) Alcohol Use: none Drug Use: none Marital Status: Housing status: lives alone Occupational Status: retired Immunizations History of Influenza Vaccine: Yes Influenza Vaccine Date: Dec 26, 2014 History of Tetanus Vaccine?: Yes Tetanus Immunization Date: August 04, 2010 History of Pneumococcal: Yes Pneumococcal Date: Feb 24, 2015 Multi-Drug Resistant Organisms History of MDRO: No Allergies Coded Allergies: No Known Allergies (Verified , 05/11/16) Home Medications Scheduled Albuterol Hfa (Ventolin Hfa), 1 PUFFS INH Q4 Amlodipine (Norvasc), 10 MG PO QAM Clonidine Hcl (Catapres), 0.1 MG PO QAM Cyanocobalamin (Cyanocobalamin), 1,000 MCG IM MONTHLY Diphenoxylate/Atropine (Diphenoxylate/Atropine 2.5-0.025 mg), 1 TAB PO BID Ergocalciferol (Vitamin D 16264 Unit), 50,000 UNIT PO MONTHLY Fluticasone Prop/Salmeterol (Advair Diskus 250/50 60 Dose), 2 PUFF INH BID Furosemide (Furosemide), 40 MG PO DAILY Insulin Aspart (Novolog Flexpen), UNITS SQ UD Insulin Glargine (Lantus), 26 UNITS SC QAM Losartan Potassium (Cozaar), 100 MG PO QAM Metoprolol Tartrate (Lopressor) (Lopressor), 37.5 MG PO BID Oxygen (Oxygen), 2.5 LITERS NA HS Pantoprazole (Pantoprazole Sodium), 1 TAB PO DAILY Prednisolone Acetate (Ophth) (Pred Forte 1% Oph), 1 DROPS OPL QAM Warfarin Sod (Coumadin), 5 MG PO DAILY Scheduled PRN Ipratropium-Albuterol (Duoneb), 1 TREATMENT INH QID PRN for SOB/Wheezing Lidocaine-Prilocaine (Hrvhitpci-Tciwmazrgh-Ayzh 2.5-2.5 %), 1 APPLN TOP UD PRN for PRIOR TO DIALYSIS Ondansetron Hcl (Zofran), 8 MG PO Q8 PRN for Nausea or Vomiting Miscellaneous Medications Epoetin Hakan (Procrit) Review of Systems Constitutional: + fatigue, No chills, No fever, No sweats, No weakness Eyes: No worsening of vision ENT: No hearing loss Respiratory: + shortness of breath, + wheezing, No cough, No dyspnea on exertion, No sputum Cardiovascular: No chest pain, No claudication, No edema, No palpitations Abdomen: + GI bleeding (black stools), No constipation, No diarrhea, No nausea , No pain, No vomiting Musculoskeletal: No calf pain, No swelling Genitourinary - Female: No dysuria Neurologic: No weakness Psychiatric: No depression symptoms Endocrine: + fatigue Hematologic / Lymphatic: No abnormal bleeding/bruising Integumentary: No new/changing skin lesions Physical Exam Vital Signs Date Time Temp Pulse Resp B/P Pulse Ox O2 Delivery O2 Flow Rate FiO2 05/11/16 08:02 72 30 160/73 100 Nebulizer 10.0 05/11/16 07:44 68 20 90 Nasal Cannula 4.0 05/11/16 07:20 93 Nasal Cannula 4.0 05/11/16 07:19 93 Nasal Cannula 4.0 05/11/16 06:38 71 05/11/16 06:33 37.5 72 22 158/75 93 Nasal Cannula 4.0 05/11/16 06:33 93 Nasal Cannula 4.0 General Appearance: WD/WN, no apparent distress, + pertinent finding (Pt is sitting up in bed with son-in-law at bedside ) Head: normocephalic, atraumatic Eyes: normal inspection ENT: hearing grossly normal Neck: supple Respiratory/Chest: chest non-tender, no respiratory distress, no accessory muscle use, + wheezing (expiratory wheezing) Cardiovascular: regular rate, rhythm Abdomen/GI: normal bowel sounds, non tender, soft Back: normal inspection Extremities/Musculoskelatal: normal inspection, no calf tenderness, + swelling (trace swelling bilat) Neurologic/Psych: alert, normal mood/affect, oriented x 3 Skin: normal color, warm/dry Diagnostics Laboratory Results Results Past 24 Hours Test 05/11/16 07:39 Range/Units White Blood Count 2.26 4.8-10.8 K/uL Red Blood Count 2.49 4.2-5.4 M/uL Hemoglobin 7.6 12.0-16.0 g/dL Hematocrit 23.8 37-47 % Mean Corpuscular Volume 95.6 80-100 fL Mean Corpuscular Hemoglobin 30.5 25-34 pg Mean Corpuscular Hemoglobin Concent 31.9 32-36 g/dl Platelet Count 159 130-400 K/uL Mean Platelet Volume 8.7 7.4-10.4 fL Neutrophils (%) (Auto) 66.5 % Lymphocytes (%) (Auto) 14.6 % Monocytes (%) (Auto) 17.7 % Eosinophils (%) (Auto) 0.4 % Basophils (%) (Auto) 0.4 % Neutrophils # (Auto) 1.50 1.4-6.5 K/uL Lymphocytes # (Auto) 0.33 1.2-3.4 K/uL Monocytes # (Auto) 0.40 0.11-0.59 K/uL Eosinophils # (Auto) 0.01 0-0.5 K/uL Basophils # (Auto) 0.01 0-0.2 K/uL RDW Standard Deviation 65.1 36.4-46.3 fL RDW Coefficient of Variation 18.8 11.5-14.5 % Immature Granulocyte % (Auto) 0.4 % Immature Granulocyte # (Auto) 0.01 0.00-0.02 K/uL Large Platelets 1+ Poikilocytosis PRESENT Anisocytosis PRESENT Prothrombin Time 11.6 9.0-12.0 SECONDS Prothromb Time International Ratio 1.1 0.9-1.1 Activated Partial Thromboplast Time 31.3 21.0-31.0 SECONDS Partial Thromboplastin Ratio 1.2 Sodium Level 139 136-145 mmol/L Potassium Level 4.2 3.5-5.1 mmol/L Chloride Level 98 98-107 mmol/L Carbon Dioxide Level 28 21-32 mmol/L Anion Gap 13.0 3-11 mmol/L Blood Urea Nitrogen 50 7-18 mg/dl Creatinine 12.00 0.60-1.20 mg/dl Est Creatinine Clear Calc Drug Dose 5.1 ml/min Estimated GFR () 3.3 Estimated GFR (Non- 2.8 BUN/Creatinine Ratio 4.2 10-20 Random Glucose 104 70-99 mg/dl Calcium Level 7.1 8.5-10.1 mg/dl Phosphorus Level 5.1 2.5-4.9 mg/dl Magnesium Level 2.2 1.8-2.4 mg/dl Total Bilirubin 0.5 0.2-1 mg/dl Aspartate Amino Transf (AST/SGOT) 16 15-37 U/L Alanine Aminotransferase (ALT/SGPT) 16 12-78 U/L Alkaline Phosphatase 81 45-117 U/L Total Creatine Kinase 133 26-192 U/L Creatine Kinase MB 1.4 0.5-3.6 ng/ml Creatine Kinase MB Ratio 1.1 0-3.0 Pro-B-Type Natriuretic Peptide 69034 0-900 pg/ml Total Protein 5.8 6.4-8.2 gm/dl Albumin 2.5 3.4-5.0 gm/dl Globulin 3.3 2.5-4.0 gm/dl Albumin/Globulin Ratio 0.8 0.9-2 Microbiology Results 05/11/16 Blood Culture, Received Pending 05/11/16 Blood Culture, Received Pending Diagnostic Radiology CXR IMPRESSION: Developing bibasilar parenchymal infiltrates versus early congestive failure Impression Assessment and Plan WORSENING SOB; LIKELY 2* ACUTE COPD EXACERBATION pt presents with worsening SOB assoc with wheezing; h/o mod COPD with ongoing tobacco use -admit to telemetry -vitals are stable; saturating well on 4L O2 -CXR bibasilar infiltrates; repeat CXR in AM -start Solu-Medrol and duonebs -hold off on abx for now -pt education regarding importance of smoking cessation -provide NicoDerm patch while in hospital -cont supplemental O2 -monitor CHRONIC ANEMIA pt recently admitted for anemia due to GI bleed; transfused 5 units pRBCs; no scopes done -HgB 7.6 (was 8.0 05/06/16) -continue to monitor HgB daily -cont to hold Coumadin -cont Protonix -type and cross 2 units and transfuse PRN HgB <7 -pt still reporting black stools ESRD ON HD -HD Tues, Thurs, Sat -K+ WNL; BNP>23k -fluid mgmt with dialysis -consult nephro, Dr. Tijerina for dialysis today INSULIN-DEPENDENT DM 2 -recent A1C 5.0 -cont Lantus -start ISS monitor BSG AC HS PAROXYSMAL AFIB -cont holding Coumadin due to recent GI bleed -cont metoprolol -monitor HTN -BP stable -cont amlodipine, clonidine, losartan and metoprolol -monitor DVT PROPHYLAXIS -SCDs only for now due to anemia/recent GI bleed CODE STATUS -FULL CODE per discussion with patient upon admission DISPO Pt seen in collaboration with Dr. Chaudhry. Please see his addendum for further details. Thanks! Attending Addendum Pt was seen and examined by me. Agree with Mare HARE's exam, assessment and plan. Pt was been having worsening SOB. Denies ay chest pain, palpitation, dizziness. GEN- No acute distress Head- atraumatic Eyes- PERRL, EOMI ENT- oropharynx clear Neck- supple, no JVD Lungs- + wheezing Heart- regular rhythm Abdomen- normal bowel sounds WORSENING SOB Possible 2nd to COPD exacerbation vs Pneumonia vs CHF CXR showed possible bibasilar infiltrates vs early CHF She will get HD today will repeat cxr in am will check procalcitonin if pt spike temp, will start on Abx will start on Solu-Medrol (will cause elevated wbc) and DuoNeb continue supplemental O2 monitor closely EKG, CXR, lab reviewed by me Please refer to Mare HARE's documentation for other problems. Hansel Chaudhry MD VTE Prophylaxis VTE Risk Assessment Done? Y/N: Yes Risk Level: High
[2016-05-11] MEDS: METHYLPREDNISOLONE IV 40 MG in SYRINGE 0 ML IV SCH ×2 (14:53→20:49)
[2016-05-11] MEDS ORDERED: NURSING VERBAL MED ORDER ONE (15:15)
[2016-05-11] MEDS ORDERED: ALBUMIN HUMAN 25% 12.5 GM/50 ML VIAL IV ONE ×2 (15:30→17:45)
[2016-05-11] MEDS: INSULIN ASPART 100 UNITS/ML 3 ML PEN SC SCH ×2 (16:15→21:07)
[2016-05-11] MEDS ORDERED: EPOETIN ALFA 10,000 UNITS/ML VIAL IV SCH (17:30)
[2016-05-11] MEDS: ALBUT/IPRATROP 3MG/0.5MG NEB 3 ML VIAL INH SCH ×2 (18:09→19:27)
[2016-05-11] MEDS: DIPHENOXYLATE/ATROPINE 2.5/0.025MG TAB PO SCH (20:48)
[2016-05-11] MEDS: METOPROLOL TARTRATE 25 MG TAB PO SCH (20:49)
--- NOTE | 2016-05-11 21:53 | NEPHROLOGY CONSULTATION ---
DATE OF CONSULTATION: 05/11/2016 ATTENDING OF RECORD: Dr. Chaudhry. REASON FOR CONSULTATION: ESRD. HISTORY OF PRESENT ILLNESS: This is a 71-year-old female who dialyzed at the [facility] on Tuesdays, , and Saturdays. The patient was just recently discharged last with COPD exacerbation/diarrhea. The patient's breathing began to worsen yesterday and was having chills yesterday. The patient during the previous admission also had hemoglobin level down to 4 and required multiple units of blood and also had an INR of greater than 8 requiring FFP as well as IV vitamin K. The patient presents with a hemoglobin level of 7.6, worsening shortness of breath, fatigue, decreased appetite, and continued diarrhea. The patient missed today's dialysis; last dialysis treatment was Tuesday. PAST MEDICAL HISTORY: Paroxysmal aFib, history of an adrenal adenoma, anemia of end-stage renal disease, COPD, diastolic heart failure, type 2 diabetes, hyperlipidemia, end-stage renal disease followed by myself at the [facility] on Tuesdays, , and Saturdays; hypertension, osteoarthritis. PAST SURGICAL HISTORY: Cataract surgery, appendectomy, cholecystectomy, oophorectomy, hysterectomy, and fistula placement. FAMILY HISTORY: Significant for diabetes. SOCIAL HISTORY: Continues to smoke a pack per day. No alcohol, no drugs. She is and lives alone. CURRENT MEDICATIONS: Norvasc 10 mg a day, clonidine 0.1 mg daily, Lantus 26 units subQ daily, Cozaar 100 mg daily, Protonix 40 mg daily, Pred Forte eyedrops, Lasix 40 mg daily, Nicoderm patch daily, Lomotil 1 tab p.o. b.i.d., Lopressor 37.5 p.o. b.i.d., and Solu-Medrol 40 IV q. 8. PHYSICAL EXAMINATION: VITAL SIGNS: Temperature 36.7, pulse 89, respiratory rate 16, blood pressure 132/64, satting 99% on 5 liters. GENERAL: Awake, alert, oriented x3. EYES: No scleral icterus. ENT: Moist mucous membranes. NECK: Supple. PULMONARY: Positive end-expiratory wheeze. CARDIAC: Regular rate and rhythm. ABDOMEN: Bowel sounds positive, soft, nontender. EXTREMITIES: Mild edema. NEUROLOGICALLY: Nonfocal. DERMATOLOGIC: No rash or ulcers noted. REVIEW OF SYSTEMS: Positive fatigue, positive chills last night. Denies any fevers. Positive shortness of breath. Positive cough. No chest pain. Positive diarrhea. No rash. No itching. No blurry vision. No dysphagia. All other review of systems otherwise negative. LABORATORIES: White count is 2, H\T\H 7 and 23, platelet counts 159. Sodium was 139, potassium 4.2, chloride is 98, bicarbonate is 28, BUN is 50, and creatinine is 12. Calcium is 7, lactic acid 0.54, phosphorus 5.1, mag is 2.2, proBNP 24,000, and albumin is 2.5. INR is 1.1. Blood culture is pending. IMAGING DATA: Chest x-ray shows developing bibasilar parenchymal infiltrates versus early congestive failure. ASSESSMENT AND PLAN: 1. End-stage renal disease: Plan on dialysis today on a 2K bath with 2 liters uf as blood pressure tolerates to help optimize breathing. 2. Anemia of renal failure. Hemoglobin levels are low, but likely having difficulty trending back up given patient's renal failure with Procrit resistance. Will continue to redose Procrit on dialysis and give blood transfusions as needed. 3. Renal osteodystrophy. Calcium levels are low and will give a dose of calcium gluconate now. Hold on phosphate binders given the patient's poor appetite. 4. Pulmonary. Question the patient has chronic obstructive pulmonary disease exacerbation versus pneumonia versus congestive heart failure versus all 3. Currently on Solu-Medrol. Currently not on antibiotics. Will try to diurese to help optimize pulmonary function. Appreciate consultation. OSEAS
[2016-05-12] VITALS (12 sets, daily range): BP systolic 98–176; BP diastolic 54–89; PULSE 62–74; TEMP 36–37; O2SAT 91–100
[2016-05-12] MEDS: METHYLPREDNISOLONE IV 40 MG in SYRINGE 0 ML IV SCH ×3 (05:27→21:10)
[2016-05-12 06:53] LABS: BUN/CREATININE RATIO 4.1 (10-20); CALCIUM 7.5 mg/dl (8.5-10.1); CREATININE 8.4 mg/dl (0.60-1.20); POTASSIUM 4.5 mmol/L (3.5-5.1)
--- NOTE | 2016-05-12 06:53 | Clinical Documentation Query ---
CLINICAL DOCUMENTATION QUERY 71-y/o female with hx of ESRD and chronic diastolic CHF presents to ED with SOB. In your clinical opinion is this patient being managed for: ( ) Possible Acute on chronic diastolic CHF in setting of ESRD treated with nephrology consult and HD. ( ) Other explanation of clinical findings (Please Explain) ( ) Unable to determine (Please Define) ( ) Need to Discuss ( ) Not Agree The medical record reflects the following clinical findings, treatment, and risk factors. Clinical Indicators: H&P states SOB 2/2 possible CHF. CXR shows bibasilar parenchymal infiltrates versus early congestive failure. Patient had wheezes and +extremity edema by exam. ProBNAP was [id number]. Treatment: IV albumin, HD, Nephrology consult, CXR, telemetry, I/O's, daily weights Risk Factors: Age, ESRD, HTN, hx of chronic diastolic CHF Please clarify and document your clinical opinion in the progress notes and discharge summary. Terms such as "probable", "suspected", "likely", "questionable", "possible", or "still to be ruled out" are acceptable. IF IN AGREEMENT, YOU MUST DOCUMENT ABOVE DIAGNOSTIC STATEMENT IN DAILY PROGRESS NOTES AND DISCHARGE SUMMARY. This document is not part of the patient's record. Thank You, Alec Kaye, RN [phone]
[2016-05-12] MEDS: ALBUT/IPRATROP 3MG/0.5MG NEB 3 ML VIAL INH SCH ×4 (06:55→20:12)
--- NOTE | 2016-05-12 08:51 | DIAGNOSTIC IMAGING REPORT ---
TWO VIEW CHEST CLINICAL HISTORY: Follow pneumonia. FINDINGS: PA and lateral chest radiographs are compared to study dated 05/11/2016 and correlated with chest CT dated 03/18/2016. The heart is enlarged and there is atherosclerotic calcification of the thoracic aorta. The pulmonary vasculature is noncongested. Emphysema and chronic interstitial thickening are similar to previous. There is bibasilar airspace consolidation, right greater than left with small pleural effusions. This appears modestly increased from 05/11/2016. There is no pneumothorax. The skeletal structures are osteopenic. The bony thorax appears intact. IMPRESSION: 1. Cardiomegaly and emphysema. There is no radiographic evidence of congestive failure. 2. Small pleural effusions and bibasilar consolidation, right greater than left. This likely represents an infectious/inflammatory pneumonitis and appears modestly increased from 05/11/2016. Radiographic follow-up to resolution is recommended. Electronically signed by: Luigi García M.D. 05/12/2016 8:50 AM Dictated Date/Time: 05/12/2016 8:48 AM
[2016-05-12] MEDS: NICOTINE 21 MG/24 HR TDSY TD SCH (09:00)
[2016-05-12] MEDS: INSULIN ASPART 100 UNITS/ML 3 ML PEN SC SCH ×4 (09:31→21:05)
[2016-05-12] MEDS: INSULIN GLARGINE SOLOSTAR 100 UNITS/ML 3 ML PEN SC SCH (09:32)
[2016-05-12] MEDS: DIPHENOXYLATE/ATROPINE 2.5/0.025MG TAB PO SCH ×2 (09:32→21:02)
[2016-05-12] MEDS: CLONIDINE HCL 0.1 MG TAB PO SCH (09:33)
[2016-05-12] MEDS: AMLODIPINE BESYLATE 5 MG TAB PO SCH (09:33)
[2016-05-12] MEDS: PANTOprazole SOD 40 MG TAB PO SCH (09:33)
[2016-05-12] MEDS: LOSARTAN POTASSIUM 50 MG TAB PO SCH (09:33)
[2016-05-12] MEDS: FUROSEMIDE 40 MG TAB PO SCH (09:34)
[2016-05-12] MEDS: METOPROLOL TARTRATE 25 MG TAB PO SCH ×2 (09:34→21:03)
[2016-05-12] MEDS: PrednisoLONE ACET 1% OP SUSP 5 ML BTL OPL SCH (09:35)
--- NOTE | 2016-05-12 09:51 | Nephrology Progress Note ---
Nephrology Progress Note Date of Service: May 12, 2016. Subjective 71 yo female with copd exacerbation with frequent hospital admissions recently over the past month. came in with sob. diarrhea appears better. underwent dialysis yesterday. had difficulty sleeping. currently oob to chair. looks exhausted. dry cough. poor appetite. Objective Date Time Temp Pulse Resp B/P Pulse Ox O2 Delivery O2 Flow Rate FiO2 05/12/16 06:55 66 18 92 Nasal Cannula 4.0 05/12/16 04:00 Nasal Cannula 4.0 05/12/16 03:16 36.0 69 24 169/89 91 Nasal Cannula 4.0 05/12/16 00:00 37.0 68 20 147/72 92 Nasal Cannula 4.0 05/11/16 23:59 Nasal Cannula 4.0 05/11/16 20:40 75 162/68 05/11/16 20:07 37.2 76 18 162/73 97 05/11/16 20:00 Nasal Cannula 4.0 05/11/16 19:45 76 158/63 05/11/16 19:32 77 20 94 Nasal Cannula 4.0 05/11/16 19:30 77 167/63 05/11/16 19:15 78 170/67 05/11/16 19:00 70 166/67 05/11/16 18:45 73 165/91 05/11/16 18:30 70 171/70 05/11/16 18:15 72 161/65 05/11/16 18:00 72 164/66 05/11/16 17:45 73 163/64 05/11/16 17:30 75 165/62 05/11/16 17:15 71 166/72 05/11/16 17:03 37.9 80 161/69 05/11/16 16:01 36.7 89 16 132/64 99 05/11/16 16:00 94 Nasal Cannula 5.0 05/11/16 12:36 37.2 79 20 155/66 94 Nasal Cannula 5.0 05/11/16 12:12 98 18 141/59 93 Room Air 05/11/16 10:38 85 18 142/67 92 Room Air Physical Exam: General-[id number] Eyes-no scleral icterus ENT-mmm Neck-supple Lungs-right sided rales Heart-rrr Abdomen-bs+/snt/nd Extremities-no c/c/e Neuro-nonfocal Current Inpatient Medications Medications (Trade) Dose Ordered Sig/Joan Route Start Time Stop Time Status Last Admin Dose Admin Acetaminophen (Tylenol Tab) 650 mg Q4H PRN PO 05/11/16 10:00 06/10/16 09:59 Ondansetron HCl (Zofran Inj) 4 mg Q6H PRN IV 05/11/16 10:00 06/10/16 09:59 Nitroglycerin (Nitrostat Tab) 0.4 mg UD PRN SL 05/11/16 10:00 06/10/16 09:59 Albuterol/ Ipratropium (Duoneb) 3 ml QIDR INH 05/11/16 12:00 06/10/16 11:59 05/12/16 06:55 3 ML Insulin Aspart (novoLOG ASPART) SLIDING SCALE If C... ACHS SC 05/11/16 16:15 06/10/16 16:14 05/12/16 09:31 8 UNITS Glucose (Glucose 40% Gel) 15-30 GRAMS 15 GRAMS... UD PRN PO 05/11/16 10:15 06/10/16 10:14 Glucose (Glucose Chew Tab) 4-8 Tablets 4 Tabl... UD PRN PO 05/11/16 10:15 06/10/16 10:14 Dextrose (Dextrose 50% 50ML Syringe) 25-50ML OF 50% DW IV FOR... UD PRN IV 05/11/16 10:15 06/10/16 10:14 Glucagon (Glucagon Inj) 1 mg UD PRN SQ 05/11/16 10:15 06/10/16 10:14 Amlodipine Besylate (Norvasc Tab) 10 mg QAM PO 05/12/16 09:00 06/11/16 08:59 05/12/16 09:33 10 MG Clonidine HCl (Catapres Tab) 0.1 mg QAM PO 05/12/16 09:00 06/11/16 08:59 05/12/16 09:33 0.1 MG Diphenoxylate HCl/ Atropine (Lomotil Tab) 1 tab BID PO 05/11/16 21:00 06/10/16 20:59 05/12/16 09:32 1 TAB Insulin Glargine (Lantus Solostar Pen) 26 unit QAM SC 05/12/16 09:00 06/11/16 08:59 05/12/16 09:32 26 UNIT Losartan Potassium (coZAAR TAB) 100 mg QAM PO 05/12/16 09:00 06/11/16 08:59 05/12/16 09:33 100 MG Metoprolol Tartrate (Lopressor Tab) 37.5 mg BID PO 05/11/16 21:00 06/10/16 20:59 05/12/16 09:34 37.5 MG Pantoprazole Sodium (Protonix Tab) 40 mg DAILY PO 05/12/16 09:00 06/11/16 08:59 05/12/16 09:33 40 MG Prednisolone Acetate 1 drops 1 drops QAM OPL 05/12/16 09:00 06/11/16 08:59 05/12/16 09:35 1 DROPS Methylprednisolone Sodium Succinate/ Syringe (Solu-Medrol IV/ Syringe) 0.64 ml @ 1.5 mls/min Q8H IV 05/11/16 14:00 06/10/16 10:59 05/12/16 05:27 1.5 MLS/MIN Furosemide (Lasix Tab) 40 mg DAILY PO 05/12/16 09:00 06/11/16 08:59 05/12/16 09:34 40 MG Nicotine (Nicoderm Cq 21MG Patch) 1 patch QAM TD 05/12/16 09:00 06/11/16 08:59 Miscellaneous (Remove Nicoderm Patch) 1 ea HS N/A 05/11/16 21:00 06/10/16 20:59 Last 24 Hours Test 05/11/16 16:51 05/11/16 20:27 05/12/16 04:44 05/12/16 05:23 Bedside Glucose 193 mg/dl 191 mg/dl Sodium Level 139 mmol/L Potassium Level 4.5 mmol/L Chloride Level 99 mmol/L Carbon Dioxide Level 28 mmol/L Anion Gap 12.0 mmol/L Blood Urea Nitrogen 35 mg/dl Creatinine 8.40 mg/dl Est Creatinine Clear Calc Drug Dose 7.1 ml/min Estimated GFR () 5.1 Estimated GFR (Non- 4.4 BUN/Creatinine Ratio 4.1 Random Glucose 190 mg/dl Calcium Level 7.5 mg/dl Procalcitonin 0.65 ng/mL Test 05/12/16 06:32 Bedside Glucose 192 mg/dl Assessment & Plan ESRD-pt with copd exacerbation with rales at right base. had dialysis yesterday. plan on dialysis t-h-s. on steroids for copd exacerbation. Anemia of renal failure-continue procrit for goal hg of 10 to 11
[2016-05-12 10:31] LABS: HEMATOCRIT 25.6 % (37-47); MEAN CELL VOLUME 97.3 fL (80-100); MEAN CORPUSCULAR HEMOGLOBIN 30.8 pg (25-34); MEAN CORPUSCULAR HGB CONC 31.6 g/dl (32-36); MEAN PLATELET VOLUME 10.1 fL (7.4-10.4); PLATELET COUNT 171 K/uL (130-400); RED BLOOD COUNT 2.63 M/uL (4.2-5.4); WHITE BLOOD COUNT 1.25 K/uL (4.8-10.8)
[2016-05-12] MEDS ORDERED: CEFEPIME IV 1,000 MG in DEXTROSE 5% 100ML 100 ML IV ONE (11:30)
[2016-05-12 11:44] LABS: ESTIMATED AVERAGE GLUCOSE 94 mg/dl; HA1C FLAG Normal (Normal)
[2016-05-12] MEDS ORDERED: CEFEPIME CONSULT ACTIVE PRN ×2 (12:15)
[2016-05-12] MEDS ORDERED: VANCOMYCIN CONSULT ACTIVE PRN (12:15)
[2016-05-12] MEDS ORDERED: VANCOMYCIN INJ 1,350 MG in SODIUM CHLORIDE 0.9% 250ML 250 ML IV SCH (13:00)
--- NOTE | 2016-05-12 14:04 | Pharmacy Progress Note ---
Pharmacy Antibiotic Consult Date of Service: May 12, 2016. Pharmacy Dosing Scope Pharmacy is consulted to initiate Vancomycin IV dosing therapy, order appropriate labs and adjust drug dose/frequency for Sepsis/ Neutropenia. Subjective The patient is a 71 year old female admitted on May 11, 2016 at 09:59. Objective Height (Feet): 5 Height (Inches): 6.00 Weight (Kilograms): 88.800 Lab Results (24hrs): Laboratory Tests Test 05/12/16 05:23 BUN/Creatinine Ratio 4.1 Blood Urea Nitrogen 35 mg/dl Creatinine 8.40 mg/dl White Blood Count 1.25 K/uL Micro Results: Blood cultures pending x2 Assessment & Plan VANCOMYCIN: * Loading dose: Vancomycin 1350 mg IV (15 mg/kg) x 1 ordered today. * Scr = 8.4, patient is on Hemodialysis scheduled for ,,. * Subsequent Vancomycin doses based on random level check tomorrow AM and further pre-HD levels. * Goal trough level estimate: between 15 - 20 mcg/mL. * Random level has been ordered for 03/12/17 with AM labs. * Will dose next Vancomycin post HD tomorrow. CEFEPIME: * Usual dosing for Sepsis/ Neutropenia = 2gm IV q8h. * Scr = 8.4. * Dose decr to 1 gm IV q24h. Pharmacy will continue to follow and will adjust dose/frequency as necessary. Thank you
--- NOTE | 2016-05-12 14:22 | Progress Note ---
Medicine Progress Note Date & Time of Visit: May 12, 2016 at 14:09. Subjective Pt was seen and examined Sitting in bed with no distress Pt said that her breathing improved alittle bit she continue to have a dry cough denies any chest pain, palpitation, dizziness Objective Last 8 Hrs Date Time Temp Pulse Resp B/P Pulse Ox O2 Delivery O2 Flow Rate FiO2 05/12/16 12:00 95 Nasal Cannula 2.0 05/12/16 11:20 68 18 98 Nasal Cannula 3.0 05/12/16 10:09 36.5 65 26 176/65 97 Nasal Cannula 4.0 05/12/16 08:00 94 Nasal Cannula 3.0 05/12/16 07:08 36.4 63 27 162/84 100 Nasal Cannula 4.0 05/12/16 06:55 66 18 92 Nasal Cannula 4.0 Physical Exam: General- no acute distress Head- atraumatic Eyes- PERRL, EOMI ENT- oropharynx clear Neck- supple, no JVD Lungs- Decrease breath sound Heart- regular rhythm Abdomen- normal bowel sounds Extremities- +edema, no calf tenderness Neuro- alert, oriented x 3; PERRL, EOMI; no facial palsy Skin- warm & dry Laboratory Results: Last 24 Hours Test 05/11/16 16:51 05/11/16 20:27 05/12/16 05:23 05/12/16 06:32 Bedside Glucose 193 mg/dl 191 mg/dl 192 mg/dl White Blood Count 1.25 K/uL Red Blood Count 2.63 M/uL Hemoglobin 8.1 g/dL Hematocrit 25.6 % Mean Corpuscular Volume 97.3 fL Mean Corpuscular Hemoglobin 30.8 pg Mean Corpuscular Hemoglobin Concent 31.6 g/dl RDW Standard Deviation 64.7 fL RDW Coefficient of Variation 18.0 % Platelet Count 171 K/uL Mean Platelet Volume 10.1 fL Sodium Level 139 mmol/L Potassium Level 4.5 mmol/L Chloride Level 99 mmol/L Carbon Dioxide Level 28 mmol/L Anion Gap 12.0 mmol/L Blood Urea Nitrogen 35 mg/dl Creatinine 8.40 mg/dl Est Creatinine Clear Calc Drug Dose 7.1 ml/min Estimated GFR () 5.1 Estimated GFR (Non- 4.4 BUN/Creatinine Ratio 4.1 Random Glucose 190 mg/dl Estimated Average Glucose 94 mg/dl Hemoglobin A1c 4.9 % Calcium Level 7.5 mg/dl Procalcitonin 0.65 ng/mL Test 05/12/16 11:07 Bedside Glucose 311 mg/dl Assessment & Plan WORSENING SOB Possible 2nd to COPD exacerbation vs Pneumonia vs CHF CXR on admission showed possible bibasilar infiltrates vs early CHF repeat cxr this morning after HD done yesterday showed small pleural effusions and bibasilar consolidation, right greater than left Elevated procalcitonin, neutropenia Will start today on vanco and cefepime Continue Solu-Medrol (will cause elevated wbc) and DuoNeb continue supplemental O2 monitor closely CHRONIC ANEMIA -HgB 7.6 on admission today hgb 8.6 coumadin on hold -cont Protonix Monitor h/h and if hbg drops below 8, transfuse prbc ESRD ON HD -HD , , Tue -consult nephro, Oncu -HD yesterday INSULIN-DEPENDENT DM 2 -recent A1C 5.0 -cont Lantus -start ISS monitor BSG AC HS PAROXYSMAL AFIB -cont holding Coumadin due to recent GI bleed -cont metoprolol -monitor HTN -BP stable -cont amlodipine, clonidine, losartan and metoprolol -monitor DVT PROPHYLAXIS -SCDs only for now due to anemia/recent GI bleed CODE STATUS -FULL CODE per discussion with patient upon admission Current Inpatient Medications: Current Inpatient Medications Medications (Trade) Dose Ordered Sig/Joan Route Start Time Stop Time Status Last Admin Dose Admin Acetaminophen (Tylenol Tab) 650 mg Q4H PRN PO 05/11/16 10:00 06/10/16 09:59 Ondansetron HCl (Zofran Inj) 4 mg Q6H PRN IV 05/11/16 10:00 06/10/16 09:59 Nitroglycerin (Nitrostat Tab) 0.4 mg UD PRN SL 05/11/16 10:00 06/10/16 09:59 Albuterol/ Ipratropium (Duoneb) 3 ml QIDR INH 05/11/16 12:00 06/10/16 11:59 05/12/16 11:20 3 ML Insulin Aspart (novoLOG ASPART) SLIDING SCALE If C... ACHS SC 05/11/16 16:15 06/10/16 16:14 05/12/16 12:04 9 UNITS Glucose (Glucose 40% Gel) 15-30 GRAMS 15 GRAMS... UD PRN PO 05/11/16 10:15 06/10/16 10:14 Glucose (Glucose Chew Tab) 4-8 Tablets 4 Tabl... UD PRN PO 05/11/16 10:15 06/10/16 10:14 Dextrose (Dextrose 50% 50ML Syringe) 25-50ML OF 50% DW IV FOR... UD PRN IV 05/11/16 10:15 06/10/16 10:14 Glucagon (Glucagon Inj) 1 mg UD PRN SQ 05/11/16 10:15 06/10/16 10:14 Amlodipine Besylate (Norvasc Tab) 10 mg QAM PO 05/12/16 09:00 06/11/16 08:59 05/12/16 09:33 10 MG Clonidine HCl (Catapres Tab) 0.1 mg QAM PO 05/12/16 09:00 06/11/16 08:59 05/12/16 09:33 0.1 MG Diphenoxylate HCl/ Atropine (Lomotil Tab) 1 tab BID PO 05/11/16 21:00 06/10/16 20:59 05/12/16 09:32 1 TAB Insulin Glargine (Lantus Solostar Pen) 26 unit QAM SC 05/12/16 09:00 06/11/16 08:59 05/12/16 09:32 26 UNIT Losartan Potassium (coZAAR TAB) 100 mg QAM PO 05/12/16 09:00 06/11/16 08:59 05/12/16 09:33 100 MG Metoprolol Tartrate (Lopressor Tab) 37.5 mg BID PO 05/11/16 21:00 06/10/16 20:59 05/12/16 09:34 37.5 MG Pantoprazole Sodium (Protonix Tab) 40 mg DAILY PO 05/12/16 09:00 06/11/16 08:59 05/12/16 09:33 40 MG Prednisolone Acetate 1 drops 1 drops QAM OPL 05/12/16 09:00 06/11/16 08:59 05/12/16 09:35 1 DROPS Methylprednisolone Sodium Succinate/ Syringe (Solu-Medrol IV/ Syringe) 0.64 ml @ 1.5 mls/min Q8H IV 05/11/16 14:00 06/10/16 10:59 05/12/16 12:54 1.5 MLS/MIN Furosemide (Lasix Tab) 40 mg DAILY PO 05/12/16 09:00 06/11/16 08:59 05/12/16 09:34 40 MG Nicotine (Nicoderm Cq 21MG Patch) 1 patch QAM TD 05/12/16 09:00 06/11/16 08:59 Miscellaneous 1 ea 1 ea HS N/A 05/11/16 21:00 06/10/16 20:59 Cefepime HCl 1000 mg/Dextrose 111.3 ml @ 200 mls/hr DAILY@1800 IV 05/13/16 18:00 05/20/16 17:59 Vancomycin HCl/ Sodium Chloride (Vancomycin Inj/ Nss 250ml) 277 ml @ 125 mls/hr 1300 IV 05/12/16 13:00 05/12/16 18:00 05/12/16 12:53 125 MLS/HR Cefepime HCl (Consult) 1 ea UD PRN N/A 05/12/16 12:15 06/11/16 12:14 Vancomycin HCl (Consult) 1 ea UD PRN N/A 05/12/16 12:15 06/11/16 12:14
[2016-05-12 23:45] LABS: BUN/CREATININE RATIO 5.4 (10-20); CALCIUM 7.7 mg/dl (8.5-10.1); CREATININE 9.8 mg/dl (0.60-1.20); MAGNESIUM 2.2 mg/dl (1.8-2.4); POTASSIUM 4.5 mmol/L (3.5-5.1)
[2016-05-13] VITALS (23 sets, daily range): BP systolic 116–167; BP diastolic 56–83; PULSE 53–86; TEMP 36.5–36.8; O2SAT 91–95
[2016-05-13] MEDS: LEVALBUTEROL 1.25MG/0.5ML NEB INH SCH ×4 (02:23→20:51)
[2016-05-13] MEDS: IPRATROPIUM BROMIDE NEB SOLN 0.02% 2.5 ML VIAL INH SCH ×4 (02:23→20:51)
[2016-05-13] MEDS ORDERED: LEVALBUTEROL/IPRATROPIUM NEB INH SCH (03:00)
[2016-05-13] MEDS: METHYLPREDNISOLONE IV 40 MG in SYRINGE 0 ML IV SCH ×3 (05:06→20:48)
[2016-05-13] MEDS: INSULIN ASPART 100 UNITS/ML 3 ML PEN SC SCH ×4 (07:40→20:52)
[2016-05-13] MEDS: DIPHENOXYLATE/ATROPINE 2.5/0.025MG TAB PO SCH ×2 (07:41→20:48)
[2016-05-13] MEDS: PANTOprazole SOD 40 MG TAB PO SCH (07:41)
[2016-05-13] MEDS: FUROSEMIDE 40 MG TAB PO SCH (07:41)
[2016-05-13] MEDS: AMLODIPINE BESYLATE 5 MG TAB PO SCH (07:42)
[2016-05-13] MEDS: METOPROLOL TARTRATE 25 MG TAB PO SCH ×2 (07:42→20:48)
[2016-05-13] MEDS: CLONIDINE HCL 0.1 MG TAB PO SCH (07:42)
[2016-05-13] MEDS: LOSARTAN POTASSIUM 50 MG TAB PO SCH (07:42)
[2016-05-13] MEDS: NICOTINE 21 MG/24 HR TDSY TD SCH (07:44)
--- NOTE | 2016-05-13 07:45 | Nephrology Progress Note ---
Nephrology Progress Note Date of Service: May 13, 2016. Subjective 71 yo female with copd exacerbation with frequent hospital admissions recently over the past month. pt with copd exacerbation. continues to actively smoke. breathing better today. dialysis t/h/s. pt clinically improving. cough has improved. slept well last night. appetite is improving. drinking well. Objective Date Time Temp Pulse Resp B/P Pulse Ox O2 Delivery O2 Flow Rate FiO2 05/13/16 04:00 Nasal Cannula 2.0 05/13/16 04:00 36.5 61 20 124/83 93 Nasal Cannula 2.0 05/13/16 00:04 Nasal Cannula 2.0 05/13/16 00:03 36.5 67 20 149/67 91 Nasal Cannula 2.0 05/12/16 20:12 63 18 95 Nasal Cannula 2.0 05/12/16 20:00 Nasal Cannula 2.0 05/12/16 19:58 36.8 74 18 98/54 99 05/12/16 16:27 36.9 71 18 145/75 96 05/12/16 16:00 Nasal Cannula 2.0 05/12/16 15:20 62 18 98 Nasal Cannula 3.0 05/12/16 12:00 95 Nasal Cannula 2.0 05/12/16 11:20 68 18 98 Nasal Cannula 3.0 05/12/16 10:09 36.5 65 26 176/65 97 Nasal Cannula 4.0 05/12/16 08:00 94 Nasal Cannula 3.0 Physical Exam: General-aaox3 Eyes-no scleral icterus ENT-mmm Neck-supple Lungs-basilar rales Heart-regular Abdomen-bs+/snt/nd Extremities-no c/c/e Neuro-nonfocal Current Inpatient Medications Medications (Trade) Dose Ordered Sig/Joan Route Start Time Stop Time Status Last Admin Dose Admin Acetaminophen (Tylenol Tab) 650 mg Q4H PRN PO 05/11/16 10:00 06/10/16 09:59 Ondansetron HCl (Zofran Inj) 4 mg Q6H PRN IV 05/11/16 10:00 06/10/16 09:59 Nitroglycerin (Nitrostat Tab) 0.4 mg UD PRN SL 05/11/16 10:00 06/10/16 09:59 Insulin Aspart (novoLOG ASPART) SLIDING SCALE If C... ACHS SC 05/11/16 16:15 06/10/16 16:14 05/12/16 21:05 2 UNITS Glucose (Glucose 40% Gel) 15-30 GRAMS 15 GRAMS... UD PRN PO 05/11/16 10:15 06/10/16 10:14 Glucose (Glucose Chew Tab) 4-8 Tablets 4 Tabl... UD PRN PO 05/11/16 10:15 06/10/16 10:14 Dextrose (Dextrose 50% 50ML Syringe) 25-50ML OF 50% DW IV FOR... UD PRN IV 05/11/16 10:15 06/10/16 10:14 Glucagon (Glucagon Inj) 1 mg UD PRN SQ 05/11/16 10:15 06/10/16 10:14 Amlodipine Besylate (Norvasc Tab) 10 mg QAM PO 05/12/16 09:00 06/11/16 08:59 05/12/16 09:33 10 MG Clonidine HCl (Catapres Tab) 0.1 mg QAM PO 05/12/16 09:00 06/11/16 08:59 05/12/16 09:33 0.1 MG Diphenoxylate HCl/ Atropine (Lomotil Tab) 1 tab BID PO 05/11/16 21:00 06/10/16 20:59 05/12/16 21:02 1 TAB Insulin Glargine (Lantus Solostar Pen) 26 unit QAM SC 05/12/16 09:00 06/11/16 08:59 05/12/16 09:32 26 UNIT Losartan Potassium (coZAAR TAB) 100 mg QAM PO 05/12/16 09:00 06/11/16 08:59 05/12/16 09:33 100 MG Metoprolol Tartrate (Lopressor Tab) 37.5 mg BID PO 05/11/16 21:00 06/10/16 20:59 05/12/16 21:03 37.5 MG Pantoprazole Sodium (Protonix Tab) 40 mg DAILY PO 05/12/16 09:00 06/11/16 08:59 05/12/16 09:33 40 MG Prednisolone Acetate 1 drops 1 drops QAM OPL 05/12/16 09:00 06/11/16 08:59 05/12/16 09:35 1 DROPS Methylprednisolone Sodium Succinate/ Syringe (Solu-Medrol IV/ Syringe) 0.64 ml @ 1.5 mls/min Q8H IV 05/11/16 14:00 06/10/16 10:59 05/13/16 05:06 1.5 MLS/MIN Furosemide (Lasix Tab) 40 mg DAILY PO 05/12/16 09:00 06/11/16 08:59 05/12/16 09:34 40 MG Nicotine (Nicoderm Cq 21MG Patch) 1 patch QAM TD 05/12/16 09:00 06/11/16 08:59 Miscellaneous 1 ea 1 ea HS N/A 05/11/16 21:00 06/10/16 20:59 Cefepime HCl/ Dextrose (Maxipime IV/D5 100ml) 111.3 ml @ 200 mls/hr DAILY@1800 IV 05/13/16 18:00 05/20/16 17:59 Cefepime HCl (Consult) 1 ea UD PRN N/A 05/12/16 12:15 06/11/16 12:14 Vancomycin HCl (Consult) 1 ea UD PRN N/A 05/12/16 12:15 06/11/16 12:14 Ipratropium [place] (Atrovent 0.02% 0.5MG/2.5ML Neb) 0.5 mg Q6R INH 05/13/16 03:00 06/12/16 02:59 Levalbuterol (Xopenex 1.25MG/ 0.5ML Neb) 1.25 mg Q6R INH 05/13/16 03:00 06/12/16 02:59 Last 24 Hours Test 05/12/16 11:07 05/12/16 16:43 05/12/16 20:24 05/12/16 22:45 Bedside Glucose 311 mg/dl 136 mg/dl 223 mg/dl Sodium Level 137 mmol/L Potassium Level 4.5 mmol/L Chloride Level 96 mmol/L Carbon Dioxide Level 27 mmol/L Anion Gap 14.0 mmol/L Blood Urea Nitrogen 53 mg/dl Creatinine 9.80 mg/dl Est Creatinine Clear Calc Drug Dose 6.1 ml/min Estimated GFR () 4.2 Estimated GFR (Non- 3.6 BUN/Creatinine Ratio 5.4 Random Glucose 197 mg/dl Calcium Level 7.7 mg/dl Magnesium Level 2.2 mg/dl Test 05/13/16 05:59 05/13/16 06:47 Random Vancomycin Level 13.0 mcg/ml Bedside Glucose 178 mg/dl Assessment & Plan ESRD-pt with copd exacerbation with rales at bases. pt difficult to remove fluid and pulmonary exam may be multifactorial with copd exacerbation, chf, and infiltrate all possibly contributing. to try to remove 2 liters today as tolerated. Anemia of renal failure-continue procrit for goal hg of 10 to 11.
[2016-05-13] MEDS: INSULIN GLARGINE SOLOSTAR 100 UNITS/ML 3 ML PEN SC SCH (07:46)
[2016-05-13] MEDS: PrednisoLONE ACET 1% OP SUSP 5 ML BTL OPL SCH (07:49)
[2016-05-13] MEDS ORDERED: EPOETIN ALFA 10,000 UNITS/ML VIAL IV. SCH (08:00)
[2016-05-13 09:06] LABS: HEPATITIS B AB NEG
[2016-05-13 09:28] LABS: HEMATOCRIT 24.7 % (37-47); MEAN CELL VOLUME 94.6 fL (80-100); MEAN CORPUSCULAR HEMOGLOBIN 30.7 pg (25-34); MEAN CORPUSCULAR HGB CONC 32.4 g/dl (32-36); MEAN PLATELET VOLUME 9.9 fL (7.4-10.4); PLATELET COUNT 180 K/uL (130-400); RED BLOOD COUNT 2.61 M/uL (4.2-5.4); WHITE BLOOD COUNT 4.22 K/uL (4.8-10.8)
[2016-05-13 09:52] LABS: BUN/CREATININE RATIO 5.8 (10-20)
--- NOTE | 2016-05-13 11:10 | Progress Note ---
Medicine Progress Note Date & Time of Visit: May 13, 2016 at 11:03. Subjective Pt was seen and examined Pt sitting in chair comfortable with no distress Pt said that she is feeling better than yesterday but she does not feel ready yet she said that her breathing feels better Denies any chest pain, palpitation, dizziness Objective Last 8 Hrs Date Time Temp Pulse Resp B/P Pulse Ox O2 Delivery O2 Flow Rate FiO2 05/13/16 09:59 Nasal Cannula 2.0 05/13/16 08:00 Nasal Cannula 2.0 05/13/16 07:32 36.5 63 20 153/77 94 Nasal Cannula 2.0 05/13/16 07:14 86 21 94 Nasal Cannula 2.0 05/13/16 04:00 Nasal Cannula 2.0 05/13/16 04:00 36.5 61 20 124/83 93 Nasal Cannula 2.0 Physical Exam: General- no acute distress Head- atraumatic Eyes- PERRL, EOMI ENT- oropharynx clear Neck- supple, no JVD Lungs- Decrease breath sound Heart- regular rhythm Abdomen- normal bowel sounds Extremities- +edema, no calf tenderness Neuro- alert, oriented x 3; PERRL, EOMI; no facial palsy Skin- warm & dry Laboratory Results: Last 24 Hours Test 05/12/16 11:07 05/12/16 16:43 05/12/16 20:24 05/12/16 22:45 Bedside Glucose 311 mg/dl 136 mg/dl 223 mg/dl Sodium Level 137 mmol/L Potassium Level 4.5 mmol/L Chloride Level 96 mmol/L Carbon Dioxide Level 27 mmol/L Anion Gap 14.0 mmol/L Blood Urea Nitrogen 53 mg/dl Creatinine 9.80 mg/dl Est Creatinine Clear Calc Drug Dose 6.1 ml/min Estimated GFR () 4.2 Estimated GFR (Non- 3.6 BUN/Creatinine Ratio 5.4 Random Glucose 197 mg/dl Calcium Level 7.7 mg/dl Magnesium Level 2.2 mg/dl Test 05/13/16 05:59 05/13/16 06:47 White Blood Count 4.22 K/uL Red Blood Count 2.61 M/uL Hemoglobin 8.0 g/dL Hematocrit 24.7 % Mean Corpuscular Volume 94.6 fL Mean Corpuscular Hemoglobin 30.7 pg Mean Corpuscular Hemoglobin Concent 32.4 g/dl RDW Standard Deviation 61.3 fL RDW Coefficient of Variation 17.8 % Platelet Count 180 K/uL Mean Platelet Volume 9.9 fL Nucleated RBC Absolute Count (auto) 0.02 K/uL Nucleated Red Blood Cells % 0.4 % Sodium Level 136 mmol/L Potassium Level 5.0 mmol/L Chloride Level 98 mmol/L Carbon Dioxide Level 25 mmol/L Anion Gap 13.0 mmol/L Blood Urea Nitrogen 58 mg/dl Creatinine 10.00 mg/dl Est Creatinine Clear Calc Drug Dose 6.0 ml/min Estimated GFR () 4.1 Estimated GFR (Non- 3.5 BUN/Creatinine Ratio 5.8 Random Glucose 181 mg/dl Calcium Level 8.0 mg/dl Random Vancomycin Level 13.0 mcg/ml Hepatitis B Surface Antigen NEG Hepatitis B Surface Antibody NEG Bedside Glucose 178 mg/dl Assessment & Plan WORSENING SOB Possible 2nd to COPD exacerbation vs Pneumonia vs CHF CXR on admission showed possible bibasilar infiltrates vs early CHF Repeat cxr this yesterday morning after HD done yesterday showed small pleural effusions and bibasilar consolidation, right greater than left Elevated procalcitonin, neutropenia Continue IV vanco and cefepime will change steroid to PO prednisone Continue duoneb treatment continue supplemental O2 monitor closely CHRONIC ANEMIA -HgB 7.6 on admission today hgb 8.0 coumadin on hold -cont Protonix Monitor h/h and if hbg drops below 8, transfuse prbc ESRD ON HD -HD , , Tue -consult nephroDr. Oncu -HD today INSULIN-DEPENDENT DM 2 -recent A1C 5.0 -cont Lantus -start ISS monitor BSG AC HS PAROXYSMAL AFIB -cont holding Coumadin due to recent GI bleed -cont metoprolol -monitor HTN -BP stable -cont amlodipine, clonidine, losartan and metoprolol -monitor DVT PROPHYLAXIS -SCDs only for now due to anemia/recent GI bleed CODE STATUS FULL CODE DISPOSITION Discussed with patient about [facility] for [facility], she agreed to go to rehab. Current Inpatient Medications: Current Inpatient Medications Medications (Trade) Dose Ordered Sig/Joan Route Start Time Stop Time Status Last Admin Dose Admin Acetaminophen (Tylenol Tab) 650 mg Q4H PRN PO 05/11/16 10:00 06/10/16 09:59 Ondansetron HCl (Zofran Inj) 4 mg Q6H PRN IV 05/11/16 10:00 06/10/16 09:59 Nitroglycerin (Nitrostat Tab) 0.4 mg UD PRN SL 05/11/16 10:00 06/10/16 09:59 Insulin Aspart (novoLOG ASPART) SLIDING SCALE If C... ACHS SC 05/11/16 16:15 06/10/16 16:14 05/13/16 07:40 5 UNITS Glucose (Glucose 40% Gel) 15-30 GRAMS 15 GRAMS... UD PRN PO 05/11/16 10:15 06/10/16 10:14 Glucose (Glucose Chew Tab) 4-8 Tablets 4 Tabl... UD PRN PO 05/11/16 10:15 06/10/16 10:14 Dextrose (Dextrose 50% 50ML Syringe) 25-50ML OF 50% DW IV FOR... UD PRN IV 05/11/16 10:15 06/10/16 10:14 Glucagon (Glucagon Inj) 1 mg UD PRN SQ 05/11/16 10:15 06/10/16 10:14 Amlodipine Besylate (Norvasc Tab) 10 mg QAM PO 05/12/16 09:00 06/11/16 08:59 05/13/16 07:42 10 MG Clonidine HCl (Catapres Tab) 0.1 mg QAM PO 05/12/16 09:00 06/11/16 08:59 05/13/16 07:42 0.1 MG Diphenoxylate HCl/ Atropine (Lomotil Tab) 1 tab BID PO 05/11/16 21:00 06/10/16 20:59 05/13/16 07:41 1 TAB Insulin Glargine (Lantus Solostar Pen) 26 unit QAM SC 05/12/16 09:00 06/11/16 08:59 05/13/16 07:46 26 UNIT Losartan Potassium (coZAAR TAB) 100 mg QAM PO 05/12/16 09:00 06/11/16 08:59 05/13/16 07:42 100 MG Metoprolol Tartrate (Lopressor Tab) 37.5 mg BID PO 05/11/16 21:00 06/10/16 20:59 05/13/16 07:42 37.5 MG Pantoprazole Sodium (Protonix Tab) 40 mg DAILY PO 05/12/16 09:00 06/11/16 08:59 05/13/16 07:41 40 MG Prednisolone Acetate 1 drops 1 drops QAM OPL 05/12/16 09:00 06/11/16 08:59 05/13/16 07:49 1 DROPS Methylprednisolone Sodium Succinate/ Syringe (Solu-Medrol IV/ Syringe) 0.64 ml @ 1.5 mls/min Q8H IV 05/11/16 14:00 06/10/16 10:59 05/13/16 05:06 1.5 MLS/MIN Furosemide (Lasix Tab) 40 mg DAILY PO 05/12/16 09:00 06/11/16 08:59 05/13/16 07:41 40 MG Nicotine (Nicoderm Cq 21MG Patch) 1 patch QAM TD 05/12/16 09:00 06/11/16 08:59 Miscellaneous 1 ea 1 ea HS N/A 05/11/16 21:00 06/10/16 20:59 Cefepime HCl/ Dextrose (Maxipime IV/D5 100ml) 111.3 ml @ 200 mls/hr DAILY@1800 IV 05/13/16 18:00 05/20/16 17:59 Cefepime HCl (Consult) 1 ea UD PRN N/A 05/12/16 12:15 06/11/16 12:14 Vancomycin HCl (Consult) 1 ea UD PRN N/A 05/12/16 12:15 06/11/16 12:14 Ipratropium [place] (Atrovent 0.02% 0.5MG/2.5ML Neb) 0.5 mg Q6R INH 05/13/16 03:00 06/12/16 02:59 05/13/16 07:14 0.5 MG Levalbuterol (Xopenex 1.25MG/ 0.5ML Neb) 1.25 mg Q6R INH 05/13/16 03:00 06/12/16 02:59 05/13/16 07:14 1.25 MG Epoetin [place] [address] units 10,000 units TODAY@0800 IV. 05/13/16 08:00 05/13/16 23:59 Vancomycin HCl/ Sodium Chloride (Vancomycin Inj/ Nss 250ml) 270 ml @ 125 mls/hr 1200 IV 05/13/16 12:00 05/13/16 14:10
[2016-05-13] MEDS ORDERED: VANCOMYCIN INJ 1,000 MG in SODIUM CHLORIDE 0.9% 250ML 250 ML IV SCH (12:00)
--- NOTE | 2016-05-13 15:49 | Pharmacy Progress Note ---
Pharmacy Antibiotic Prog Note Date of Service: May 13, 2016. Subjective: The patient is currently receiving Vancomycin empiric dosing for HD patient, patient received Vancomycin 1350 mg IV on 05/12 at 1300. The patient is currently on day # 2 of Vancomycin IV therapy. Objective: Height (Feet): 5 Height (Inches): 6.00 Weight (Kilograms): 92.000 Levels: Item Value Date Time Random Vancomycin Level 13.0 mcg/ml 05/13/16 0559 Lab Results (24hrs): Laboratory Tests Test 05/12/16 22:45 05/13/16 05:59 BUN/Creatinine Ratio 5.4 5.8 Blood Urea Nitrogen 53 mg/dl 58 mg/dl Creatinine 9.80 mg/dl 10.00 mg/dl White Blood Count 4.22 K/uL Micro Results: Item Value Date Time Blood Culture - Preliminary Resulted 05/11/16 0730 Blood NO GROWTH TO DATE. Blood Culture - Preliminary Resulted 05/11/16 0730 Blood NO GROWTH TO DATE. MRSA DNA Surveillance Screen - Final Complete 05/11/16 0000 Nasal Specimen Negative for MRSA by DNA Probe Recent Pertinent Medications: Cefepime 1 g IV Q24H Assessment & Plan: Spoke with Dr. Chaudhry, worsening SOB, would like to continue IV Vancomycin, despite negative MRSA. This Vancomycin random drug level of 13mcg/mL is slightly Subtherapeutic and patient requires redosed. Vancomycin 1000 mg IV x 1 dose today at 1400, after HD. Goal trough level estimate: between 15 - 20 mcg/mL. Random level has been ordered for: with AM labs. Pharmacy will continue to follow and will adjust dose/frequency as necessary. Thank you
[2016-05-13] MEDS: CEFEPIME IV 1,000 MG in DEXTROSE 5% 100ML 100 ML IV SCH (17:41)
[2016-05-14] VITALS (13 sets, daily range): BP systolic 130–156; BP diastolic 58–73; PULSE 53–60; TEMP 36.5–36.6; O2SAT 93–99
[2016-05-14] MEDS: IPRATROPIUM BROMIDE NEB SOLN 0.02% 2.5 ML VIAL INH SCH ×4 (03:00→19:56)
[2016-05-14] MEDS: LEVALBUTEROL 1.25MG/0.5ML NEB INH SCH ×4 (03:00→19:56)
[2016-05-14] MEDS: METHYLPREDNISOLONE IV 40 MG in SYRINGE 0 ML IV SCH ×2 (06:20→14:10)
--- NOTE | 2016-05-14 07:42 | Nephrology Progress Note ---
Nephrology Progress Note Date of Service: May 14, 2016. Subjective 71 yo female with copd exacerbation with frequent hospital admissions recently over the past month. pt with copd exacerbation. continues to actively smoke. underwent dialysis yesterday and was able to remove 2.3 liters. this morning pt has difficulty with breathing but she feels its not fluid. asking for a nebulizer treatment. has a dry cough. appetite is ok. diarrhea is better. Objective Date Time Temp Pulse Resp B/P Pulse Ox O2 Delivery O2 Flow Rate FiO2 05/14/16 00:00 95 Nasal Cannula 2.0 05/13/16 23:02 36.6 59 20 155/78 95 05/13/16 20:44 81 167/62 05/13/16 20:00 84 18 93 Nasal Cannula 2.0 05/13/16 20:00 Nasal Cannula 2.0 05/13/16 19:01 36.8 63 18 154/79 95 Nasal Cannula 2.0 05/13/16 15:55 Nasal Cannula 2.0 05/13/16 15:20 36.5 66 18 149/66 95 Nasal Cannula 2.0 05/13/16 14:37 76 20 92 Nasal Cannula 2.0 05/13/16 13:15 53 151/67 05/13/16 13:00 60 116/83 05/13/16 12:45 59 161/67 05/13/16 12:30 57 158/68 05/13/16 12:15 58 146/67 05/13/16 12:00 57 153/69 05/13/16 12:00 36.5 57 20 94 2.0 05/13/16 11:45 57 147/67 05/13/16 11:30 64 159/56 05/13/16 11:15 53 148/65 05/13/16 11:00 61 146/63 05/13/16 10:45 55 145/66 05/13/16 10:26 36.5 55 155/71 05/13/16 09:59 Nasal Cannula 2.0 05/13/16 08:00 Nasal Cannula 2.0 Physical Exam: General-aaox3 Eyes-no scleral icterus ENT-mmm Neck-supple Lungs-basilar rales, decreased air movement Heart-rrr Abdomen-bs+/snt/nd Extremities-no c/c/e Neuro-nonfocal Current Inpatient Medications Medications (Trade) Dose Ordered Sig/Joan Route Start Time Stop Time Status Last Admin Dose Admin Acetaminophen (Tylenol Tab) 650 mg Q4H PRN PO 05/11/16 10:00 06/10/16 09:59 Ondansetron HCl (Zofran Inj) 4 mg Q6H PRN IV 05/11/16 10:00 06/10/16 09:59 Nitroglycerin (Nitrostat Tab) 0.4 mg UD PRN SL 05/11/16 10:00 06/10/16 09:59 Insulin Aspart (novoLOG ASPART) SLIDING SCALE If C... ACHS SC 05/11/16 16:15 06/10/16 16:14 05/13/16 20:52 3 UNITS Glucose (Glucose 40% Gel) 15-30 GRAMS 15 GRAMS... UD PRN PO 05/11/16 10:15 06/10/16 10:14 Glucose (Glucose Chew Tab) 4-8 Tablets 4 Tabl... UD PRN PO 05/11/16 10:15 06/10/16 10:14 Dextrose (Dextrose 50% 50ML Syringe) 25-50ML OF 50% DW IV FOR... UD PRN IV 05/11/16 10:15 06/10/16 10:14 Glucagon (Glucagon Inj) 1 mg UD PRN SQ 05/11/16 10:15 06/10/16 10:14 Amlodipine Besylate (Norvasc Tab) 10 mg QAM PO 05/12/16 09:00 06/11/16 08:59 05/13/16 07:42 10 MG Clonidine HCl (Catapres Tab) 0.1 mg QAM PO 05/12/16 09:00 06/11/16 08:59 05/13/16 07:42 0.1 MG Diphenoxylate HCl/ Atropine (Lomotil Tab) 1 tab BID PO 05/11/16 21:00 06/10/16 20:59 05/13/16 20:48 1 TAB Insulin Glargine (Lantus Solostar Pen) 26 unit QAM SC 05/12/16 09:00 06/11/16 08:59 05/13/16 07:46 26 UNIT Losartan Potassium (coZAAR TAB) 100 mg QAM PO 05/12/16 09:00 06/11/16 08:59 05/13/16 07:42 100 MG Metoprolol Tartrate (Lopressor Tab) 37.5 mg BID PO 05/11/16 21:00 06/10/16 20:59 05/13/16 20:48 37.5 MG Pantoprazole Sodium (Protonix Tab) 40 mg DAILY PO 05/12/16 09:00 06/11/16 08:59 05/13/16 07:41 40 MG Prednisolone Acetate 1 drops 1 drops QAM OPL 05/12/16 09:00 06/11/16 08:59 05/13/16 07:49 1 DROPS Methylprednisolone Sodium Succinate/ Syringe (Solu-Medrol IV/ Syringe) 0.64 ml @ 1.5 mls/min Q8H IV 05/11/16 14:00 06/10/16 10:59 05/14/16 06:20 1.5 MLS/MIN Furosemide (Lasix Tab) 40 mg DAILY PO 05/12/16 09:00 06/11/16 08:59 05/13/16 07:41 40 MG Nicotine (Nicoderm Cq 21MG Patch) 1 patch QAM TD 05/12/16 09:00 06/11/16 08:59 Miscellaneous 1 ea 1 ea HS N/A 05/11/16 21:00 06/10/16 20:59 Cefepime HCl/ Dextrose (Maxipime IV/D5 100ml) 111.3 ml @ 200 mls/hr DAILY@1800 IV 05/13/16 18:00 05/20/16 17:59 05/13/16 17:41 200 MLS/HR Cefepime HCl (Consult) 1 ea UD PRN N/A 05/12/16 12:15 06/11/16 12:14 Vancomycin HCl (Consult) 1 ea UD PRN N/A 05/12/16 12:15 06/11/16 12:14 Ipratropium [place] (Atrovent 0.02% 0.5MG/2.5ML Neb) 0.5 mg Q6R INH 05/13/16 03:00 06/12/16 02:59 05/13/16 20:51 0.5 MG Levalbuterol (Xopenex 1.25MG/ 0.5ML Neb) 1.25 mg Q6R INH 05/13/16 03:00 06/12/16 02:59 05/13/16 20:51 1.25 MG Last 24 Hours Test 05/13/16 14:12 05/13/16 16:22 05/13/16 20:16 05/14/16 04:44 Bedside Glucose 142 mg/dl 261 mg/dl 240 mg/dl Assessment & Plan ESRD-pt with copd exacerbation with [id number] to remove fluid as tolerated on dialysis. continue t/h/s dialysis. no dialysis today. Anemia of renal failure-continue procrit for goal hg of 10 to 11. hg of 8 yesterday. todays labs pending.
[2016-05-14 07:44] LABS: HEMATOCRIT 24.9 % (37-47); MEAN CELL VOLUME 96.5 fL (80-100); MEAN CORPUSCULAR HGB CONC 32.1 g/dl (32-36); MEAN PLATELET VOLUME 10.1 fL (7.4-10.4); PLATELET COUNT 174 K/uL (130-400); RED BLOOD COUNT 2.58 M/uL (4.2-5.4); WHITE BLOOD COUNT 4.82 K/uL (4.8-10.8)
[2016-05-14 08:33] LABS: BUN/CREATININE RATIO 6.4 (10-20); CALCIUM 7.8 mg/dl (8.5-10.1); CREATININE 8.2 mg/dl (0.60-1.20)
[2016-05-14] MEDS: INSULIN ASPART 100 UNITS/ML 3 ML PEN SC SCH ×4 (08:33→20:57)
[2016-05-14] MEDS: INSULIN GLARGINE SOLOSTAR 100 UNITS/ML 3 ML PEN SC SCH (08:38)
[2016-05-14] MEDS: PrednisoLONE ACET 1% OP SUSP 5 ML BTL OPL SCH (08:42)
[2016-05-14] MEDS: CLONIDINE HCL 0.1 MG TAB PO SCH (08:44)
[2016-05-14] MEDS: LOSARTAN POTASSIUM 50 MG TAB PO SCH (08:46)
[2016-05-14] MEDS: FUROSEMIDE 40 MG TAB PO SCH (08:47)
[2016-05-14] MEDS: DIPHENOXYLATE/ATROPINE 2.5/0.025MG TAB PO SCH ×2 (08:48→20:41)
[2016-05-14] MEDS: AMLODIPINE BESYLATE 5 MG TAB PO SCH (08:50)
[2016-05-14] MEDS: PANTOprazole SOD 40 MG TAB PO SCH (08:51)
[2016-05-14] MEDS: METOPROLOL TARTRATE 25 MG TAB PO SCH ×2 (08:59→20:43)
[2016-05-14] MEDS: NICOTINE 21 MG/24 HR TDSY TD SCH (09:00)
--- NOTE | 2016-05-14 15:29 | Pharmacy Progress Note ---
Pharmacy Antibiotic Prog Note Date of Service: May 14, 2016. Subjective: The patient is currently receiving Vancomycin empirically based on random levels and HD. The patient is currently on day # 3 of Vancomycin IV therapy for COPD Exacerbation vs Pneumonia vs CHF exacerbation. Objective: Height (Feet): 5 Height (Inches): 6.00 Weight (Kilograms): 92.200 Levels: Item Value Date Time Random Vancomycin Level 19.9 mcg/ml 05/14/16 0720 Lab Results (24hrs): Laboratory Tests Test 05/14/16 07:20 BUN/Creatinine Ratio 6.4 Blood Urea Nitrogen 53 mg/dl Creatinine 8.20 mg/dl White Blood Count 4.82 K/uL Micro Results: Item Value Date Time Blood Culture - Preliminary Resulted 05/11/16 0730 Blood NO GROWTH TO DATE. Blood Culture - Preliminary Resulted 05/11/16 0730 Blood NO GROWTH TO DATE. MRSA DNA Surveillance Screen - Final Complete 05/11/16 0000 Nasal Specimen Negative for MRSA by DNA Probe Recent Pertinent Medications: Cefepime 1g IV Q24H Assessment & Plan: This Vancomycin random level of 19.9mcg/ml is Therapeutic. * No Urine output, no HD today, so no further doses of Vancomycin needed at this time. * Goal trough level estimate: between 15 - 20 mcg/mL. * Random level has been ordered for: with AM labs. * Plan for patient to go to [facility] today, if they have a bed. Pharmacy will continue to follow and will adjust dose/frequency as necessary. Thank you
[2016-05-14] MEDS: CEFEPIME IV 1,000 MG in DEXTROSE 5% 100ML 100 ML IV SCH (17:50)
--- NOTE | 2016-05-14 18:09 | Progress Note ---
Medicine Progress Note Date & Time of Visit: May 14, 2016 at 18:03. Subjective Pt was seen and examined Lying in bed comfortable with no distress Pt said that she feels tired she said that last night she was up she said that this morning she was having SOB, and she had a neb treatment that helped denies any chest pain, palpitation and dizziness Objective Last 8 Hrs Date Time Temp Pulse Resp B/P Pulse Ox O2 Delivery O2 Flow Rate FiO2 05/14/16 16:00 97 Nasal Cannula 3.0 05/14/16 15:12 36.5 57 20 149/66 97 2.0 05/14/16 14:56 55 18 96 Nasal Cannula 3.0 05/14/16 11:55 36.5 53 16 156/73 99 Nasal Cannula 3.0 Physical Exam: General- no acute distress Head- atraumatic Eyes- PERRL, EOMI ENT- oropharynx clear Neck- supple, no JVD Lungs- Decrease breath sound Heart- regular rhythm Abdomen- normal bowel sounds Extremities- +edema, no calf tenderness Neuro- alert, oriented x 3; PERRL, EOMI; no facial palsy Skin- warm & dry Laboratory Results: Last 24 Hours Test 05/13/16 20:16 05/14/16 07:20 05/14/16 07:51 05/14/16 11:15 Bedside Glucose 240 mg/dl 200 mg/dl 216 mg/dl White Blood Count 4.82 K/uL Red Blood Count 2.58 M/uL Hemoglobin 8.0 g/dL Hematocrit 24.9 % Mean Corpuscular Volume 96.5 fL Mean Corpuscular Hemoglobin 31.0 pg Mean Corpuscular Hemoglobin Concent 32.1 g/dl RDW Standard Deviation 63.1 fL RDW Coefficient of Variation 18.1 % Platelet Count 174 K/uL Mean Platelet Volume 10.1 fL Nucleated RBC Absolute Count (auto) 0.03 K/uL Nucleated Red Blood Cells % 0.6 % Sodium Level 137 mmol/L Potassium Level 5.0 mmol/L Chloride Level 99 mmol/L Carbon Dioxide Level 23 mmol/L Anion Gap 15.0 mmol/L Blood Urea Nitrogen 53 mg/dl Creatinine 8.20 mg/dl Est Creatinine Clear Calc Drug Dose 7.4 ml/min Estimated GFR () 5.2 Estimated GFR (Non- 4.5 BUN/Creatinine Ratio 6.4 Random Glucose 195 mg/dl Calcium Level 7.8 mg/dl Random Vancomycin Level 19.9 mcg/ml Test 05/14/16 16:13 Bedside Glucose 234 mg/dl Assessment & Plan WORSENING SOB Possible 2nd to COPD exacerbation vs Pneumonia vs CHF CXR on admission showed possible bibasilar infiltrates vs early CHF Repeat cxr this yesterday morning after HD done yesterday showed small pleural effusions and bibasilar consolidation, right greater than left Elevated procalcitonin, neutropenia Continue IV vanco and cefepime Will change abx to PO IV steroid changed to PO prednisone 40 mg BID Continue duoneb treatment continue supplemental O2 monitor closely CHRONIC ANEMIA -HgB 7.6 on admission today hgb 8.0 coumadin on hold -cont Protonix Monitor h/h and if hbg drops below 8, transfuse prbc ESRD ON HD -HD , , Tue -consult nephro, Dr. Tijerina -HD yesterday INSULIN-DEPENDENT DM 2 -recent A1C 5.0 -cont Lantus -start ISS monitor BSG AC HS PAROXYSMAL AFIB -cont holding Coumadin due to recent GI bleed -cont metoprolol -monitor HTN -BP stable -cont amlodipine, clonidine, losartan and metoprolol -monitor DVT PROPHYLAXIS -SCDs only for now due to anemia/recent GI bleed CODE STATUS FULL CODE DISPOSITION. Waiting for placement for [facility] for rehab Consultants: Nephrology Current Inpatient Medications: Current Inpatient Medications Medications (Trade) Dose Ordered Sig/[place]jan Route Start Time Stop Time Status Last Admin Dose Admin Acetaminophen (Tylenol Tab) 650 mg Q4H PRN PO 05/11/16 10:00 06/10/16 09:59 Ondansetron HCl (Zofran Inj) 4 mg Q6H PRN IV 05/11/16 10:00 06/10/16 09:59 Nitroglycerin (Nitrostat Tab) 0.4 mg UD PRN SL 05/11/16 10:00 06/10/16 09:59 Insulin Aspart (novoLOG ASPART) SLIDING SCALE If C... ACHS SC 05/11/16 16:15 06/10/16 16:14 05/14/16 12:19 6 UNITS Glucose (Glucose 40% Gel) 15-30 GRAMS 15 GRAMS... UD PRN PO 05/11/16 10:15 06/10/16 10:14 Glucose (Glucose Chew Tab) 4-8 Tablets 4 Tabl... UD PRN PO 05/11/16 10:15 06/10/16 10:14 Dextrose (Dextrose 50% 50ML Syringe) 25-50ML OF 50% DW IV FOR... UD PRN IV 05/11/16 10:15 06/10/16 10:14 Glucagon (Glucagon Inj) 1 mg UD PRN SQ 05/11/16 10:15 06/10/16 10:14 Amlodipine Besylate (Norvasc Tab) 10 mg QAM PO 05/12/16 09:00 06/11/16 08:59 05/14/16 08:50 10 MG Clonidine HCl (Catapres Tab) 0.1 mg QAM PO 05/12/16 09:00 06/11/16 08:59 05/14/16 08:44 0.1 MG Diphenoxylate HCl/ Atropine (Lomotil Tab) 1 tab BID PO 05/11/16 21:00 06/10/16 20:59 05/14/16 08:48 1 TAB Insulin Glargine (Lantus Solostar Pen) 26 unit QAM SC 05/12/16 09:00 06/11/16 08:59 05/14/16 08:38 26 UNIT Losartan Potassium (coZAAR TAB) 100 mg QAM PO 05/12/16 09:00 06/11/16 08:59 05/14/16 08:46 100 MG Metoprolol Tartrate (Lopressor Tab) 37.5 mg BID PO 05/11/16 21:00 06/10/16 20:59 05/13/16 20:48 37.5 MG Pantoprazole Sodium (Protonix Tab) 40 mg DAILY PO 05/12/16 09:00 06/11/16 08:59 05/14/16 08:51 40 MG Prednisolone Acetate 1 drops 1 drops QAM OPL 05/12/16 09:00 06/11/16 08:59 05/14/16 08:42 1 DROPS Methylprednisolone Sodium Succinate/ Syringe (Solu-Medrol IV/ Syringe) 0.64 ml @ 1.5 mls/min Q8H IV 05/11/16 14:00 06/10/16 10:59 05/14/16 14:10 1.5 MLS/MIN Furosemide (Lasix Tab) 40 mg DAILY PO 05/12/16 09:00 06/11/16 08:59 05/14/16 08:47 40 MG Nicotine (Nicoderm Cq 21MG Patch) 1 patch QAM TD 05/12/16 09:00 06/11/16 08:59 Miscellaneous 1 ea 1 ea HS N/A 05/11/16 21:00 06/10/16 20:59 Cefepime HCl/ Dextrose (Maxipime IV/D5 100ml) 111.3 ml @ 200 mls/hr DAILY@1800 IV 05/13/16 18:00 05/20/16 17:59 05/13/16 17:41 200 MLS/HR Cefepime HCl (Consult) 1 ea UD PRN N/A 05/12/16 12:15 06/11/16 12:14 Vancomycin HCl (Consult) 1 ea UD PRN N/A 05/12/16 12:15 06/11/16 12:14 Ipratropium [place] (Atrovent 0.02% 0.5MG/2.5ML Neb) 0.5 mg Q6R INH 05/13/16 03:00 06/12/16 02:59 05/14/16 14:56 0.5 MG Levalbuterol (Xopenex 1.25MG/ 0.5ML Neb) 1.25 mg Q6R INH 05/13/16 03:00 06/12/16 02:59 05/14/16 14:56 1.25 MG Epoetin [place] (Procrit Inj) 10,000 units TODAY@0900 IV. 05/15/16 09:00 05/15/16 18:00
[2016-05-15] VITALS (22 sets, daily range): BP systolic 131–173; BP diastolic 57–77; PULSE 56–67; TEMP 36.5–36.6; O2SAT 91–100
[2016-05-15] MEDS: IPRATROPIUM BROMIDE NEB SOLN 0.02% 2.5 ML VIAL INH SCH ×4 (02:22→19:27)
[2016-05-15] MEDS: LEVALBUTEROL 1.25MG/0.5ML NEB INH SCH ×4 (02:22→19:27)
[2016-05-15] MEDS: PrednisoLONE ACET 1% OP SUSP 5 ML BTL OPL SCH (08:28)
[2016-05-15] MEDS: CLONIDINE HCL 0.1 MG TAB PO SCH (08:29)
[2016-05-15] MEDS: DIPHENOXYLATE/ATROPINE 2.5/0.025MG TAB PO SCH ×2 (08:30→22:20)
[2016-05-15] MEDS: AMLODIPINE BESYLATE 5 MG TAB PO SCH (08:30)
[2016-05-15] MEDS: NICOTINE 21 MG/24 HR TDSY TD SCH (08:30)
[2016-05-15] MEDS: LOSARTAN POTASSIUM 50 MG TAB PO SCH (08:31)
[2016-05-15] MEDS: INSULIN GLARGINE SOLOSTAR 100 UNITS/ML 3 ML PEN SC SCH (08:36)
[2016-05-15] MEDS: INSULIN ASPART 100 UNITS/ML 3 ML PEN SC SCH ×4 (08:37→22:19)
[2016-05-15 08:47] LABS: HEMATOCRIT 26.3 % (37-47); MEAN CELL VOLUME 93.9 fL (80-100); MEAN CORPUSCULAR HGB CONC 31.9 g/dl (32-36); MEAN PLATELET VOLUME 10.3 fL (7.4-10.4); PLATELET COUNT 210 K/uL (130-400)
[2016-05-15 08:51] LABS: BUN/CREATININE RATIO 7.7 (10-20); CALCIUM 7.3 mg/dl (8.5-10.1); POTASSIUM 4.7 mmol/L (3.5-5.1)
[2016-05-15] MEDS: METOPROLOL TARTRATE 25 MG TAB PO SCH ×2 (09:00→22:10)
[2016-05-15] MEDS ORDERED: EPOETIN ALFA 10,000 UNITS/ML VIAL IV. SCH (09:00)
--- NOTE | 2016-05-15 12:37 | Pharmacy Progress Note ---
Pharmacy Antibiotic Prog Note Date of Service: May 15, 2016. Subjective: The patient is currently receiving Vancomycin empirically based on random levels. The patient is currently on day # 4 of Vancomycin IV therapy. Objective: Height (Feet): 5 Height (Inches): 6.00 Weight (Kilograms): 100.800 Levels: Item Value Date Time Random Vancomycin Level 17.7 mcg/ml 05/15/16 0606 Lab Results (24hrs): Laboratory Tests Test 05/15/16 06:06 BUN/Creatinine Ratio 7.7 Blood Urea Nitrogen 77 mg/dl Creatinine 10.00 mg/dl White Blood Count 8.00 K/uL Micro Results: Item Value Date Time Blood Culture - Preliminary Resulted 05/11/16 0730 Blood NO GROWTH TO DATE. Blood Culture - Preliminary Resulted 05/11/16 0730 Blood NO GROWTH TO DATE. MRSA DNA Surveillance Screen - Final Complete 05/11/16 0000 Nasal Specimen Negative for MRSA by DNA Probe Assessment & Plan: Assessment * 71 y/o F on empiric IV Vancomycin and Cefepime for sepsis secondary to pneumonia/neutropenia (recovered). It is possible that her worsening SOB is non -infectious (COPD exacerbation vs. HF). All cultures are negative and MRSA nasal swab also negative. However, Pulmonary wants to continue treatment with antibiotics. * Patient is ESRD on HD //Tue * Goal Vancomycin "trough" level 15-20 mcg/mL * Last Vancomycin dose of 1000mg IV x 1 was given on 05/13 ~1400. Next HD session is today, 05/15/16. * Random, pre-HD level on 05/15/16 @ 0606 was 17.7 mcg/mL * Patient is due for another dose of Vancomycin following dialysis today Plan * Give Vancomycin 750mg IV x 1 after dialysis today * Check random Vancomycin level on 05/18 with AM labs (prior to next anticipated dialysis session on Tuesday, 05/18). No need to recheck random levels prior to as no HD planned and therefore level likely to remain unchanged. * Of note, 05/18/16 will be day #7 of treatment and will be the last dose (if therapy continues/patient is still admitted at that time) Pharmacy will continue to follow and will adjust dose/frequency as necessary. Thank you
--- NOTE | 2016-05-15 13:08 | Dialysis Progress Note ---
Nephrology Dialysis Note Date of Service: May 15, 2016. Subjective states breathing still touchy, not sure if improved though less cough. no n/v/ d. denies pain muscskel or palpitations Objective Date Time Temp Pulse Resp B/P Pulse Ox O2 Delivery O2 Flow Rate FiO2 05/15/16 11:09 56 139/64 05/15/16 10:45 56 139/64 05/15/16 10:23 36.5 56 140/57 05/15/16 08:00 Nasal Cannula 2.5 05/15/16 07:18 36.6 58 16 157/72 96 Nasal Cannula 3.0 05/15/16 07:03 60 18 96 Nasal Cannula 3.0 05/15/16 04:04 36.5 63 18 164/71 96 Room Air 05/15/16 02:22 56 18 98 Nasal Cannula 3.0 05/14/16 23:30 Nasal Cannula 2.5 05/14/16 23:24 36.6 60 16 154/68 97 Nasal Cannula 2.0 05/14/16 20:40 60 152/58 99 Nasal Cannula 3.0 05/14/16 19:57 56 18 98 Nasal Cannula 3.0 05/14/16 16:00 97 Nasal Cannula 3.0 05/14/16 15:12 36.5 57 20 149/66 97 2.0 05/14/16 14:56 55 18 96 Nasal Cannula 3.0 Physical Exam: General-aaox3, on 2L 02 Eyes-no scleral icterus ENT-dry mm Neck-supple Lungs-decreased air movement on ant exam Heart-rrr Abdomen-bs+/snt/nd Extremities-no c/c/e Neuro-louie, fluent speech Current Inpatient Medications Medications (Trade) Dose Ordered Sig/Joan Route Start Time Stop Time Status Last Admin Dose Admin Acetaminophen (Tylenol Tab) 650 mg Q4H PRN PO 05/11/16 10:00 06/10/16 09:59 Ondansetron HCl (Zofran Inj) 4 mg Q6H PRN IV 05/11/16 10:00 06/10/16 09:59 Nitroglycerin (Nitrostat Tab) 0.4 mg UD PRN SL 05/11/16 10:00 06/10/16 09:59 Insulin Aspart (novoLOG ASPART) SLIDING SCALE If C... ACHS SC 05/11/16 16:15 06/10/16 16:14 05/15/16 08:37 5 UNITS Glucose (Glucose 40% Gel) 15-30 GRAMS 15 GRAMS... UD PRN PO 05/11/16 10:15 06/10/16 10:14 Glucose (Glucose Chew Tab) 4-8 Tablets 4 Tabl... UD PRN PO 05/11/16 10:15 06/10/16 10:14 Dextrose (Dextrose 50% 50ML Syringe) 25-50ML OF 50% DW IV FOR... UD PRN IV 05/11/16 10:15 06/10/16 10:14 Glucagon (Glucagon Inj) 1 mg UD PRN SQ 05/11/16 10:15 06/10/16 10:14 Amlodipine Besylate (Norvasc Tab) 10 mg QAM PO 05/12/16 09:00 06/11/16 08:59 05/15/16 08:30 10 MG Clonidine HCl (Catapres Tab) 0.1 mg QAM PO 05/12/16 09:00 06/11/16 08:59 05/15/16 08:29 0.1 MG Diphenoxylate HCl/ Atropine (Lomotil Tab) 1 tab BID PO 05/11/16 21:00 06/10/16 20:59 05/15/16 08:30 1 TAB Insulin Glargine (Lantus Solostar Pen) 26 unit QAM SC 05/12/16 09:00 06/11/16 08:59 05/15/16 08:36 26 UNIT Losartan Potassium (coZAAR TAB) 100 mg QAM PO 05/12/16 09:00 06/11/16 08:59 05/15/16 08:31 100 MG Metoprolol Tartrate (Lopressor Tab) 37.5 mg BID PO 05/11/16 21:00 06/10/16 20:59 05/14/16 20:43 37.5 MG Pantoprazole Sodium (Protonix Tab) 40 mg DAILY PO 05/12/16 09:00 06/11/16 08:59 05/14/16 08:51 40 MG Prednisolone Acetate (Pred Forte 1% Oph Susp) 1 drops QAM OPL 05/12/16 09:00 06/11/16 08:59 05/15/16 08:28 1 DROPS Furosemide (Lasix Tab) 40 mg DAILY PO 05/12/16 09:00 06/11/16 08:59 05/14/16 08:47 40 MG Nicotine (Nicoderm Cq 21MG Patch) 1 patch QAM TD 05/12/16 09:00 06/11/16 08:59 Miscellaneous 1 ea 1 ea HS N/A 05/11/16 21:00 06/10/16 20:59 Cefepime HCl/ Dextrose (Maxipime IV/D5 100ml) 111.3 ml @ 200 mls/hr DAILY@1800 IV 05/13/16 18:00 05/20/16 17:59 05/14/16 17:50 200 MLS/HR Cefepime HCl (Consult) 1 ea UD PRN N/A 05/12/16 12:15 06/11/16 12:14 Vancomycin HCl (Consult) 1 ea UD PRN N/A 05/12/16 12:15 06/11/16 12:14 Ipratropium [place] (Atrovent 0.02% 0.5MG/2.5ML Neb) 0.5 mg Q6R INH 05/13/16 03:00 06/12/16 02:59 05/15/16 07:03 0.5 MG Levalbuterol (Xopenex 1.25MG/ 0.5ML Neb) 1.25 mg Q6R INH 05/13/16 03:00 06/12/16 02:59 05/15/16 07:03 1.25 MG Epoetin [place] (Procrit Inj) 10,000 units TODAY@0900 IV. 05/15/16 09:00 05/15/16 18:00 05/15/16 12:35 10,000 UNITS Prednisone 40 mg 40 mg BIDM PO 05/14/16 20:00 06/13/16 19:59 05/15/16 08:28 40 MG Vancomycin HCl/ Sodium Chloride (Vancomycin Inj/ Nss 250ml) 265 ml @ 125 mls/hr TODAY@1600 ONCE IV 05/15/16 16:00 05/15/16 18:07 Last 24 Hours Test 05/14/16 16:13 05/14/16 20:31 05/15/16 06:06 05/15/16 06:54 Bedside Glucose 234 mg/dl 250 mg/dl 234 mg/dl White Blood Count 8.00 K/uL Red Blood Count 2.80 M/uL Hemoglobin 8.4 g/dL Hematocrit 26.3 % Mean Corpuscular Volume 93.9 fL Mean Corpuscular Hemoglobin 30.0 pg Mean Corpuscular Hemoglobin Concent 31.9 g/dl RDW Standard Deviation 60.5 fL RDW Coefficient of Variation 18.1 % Platelet Count 210 K/uL Mean Platelet Volume 10.3 fL Nucleated RBC Absolute Count (auto) 0.06 K/uL Nucleated Red Blood Cells % 0.8 % Sodium Level 136 mmol/L Potassium Level 4.7 mmol/L Chloride Level 96 mmol/L Carbon Dioxide Level 23 mmol/L Anion Gap 17.0 mmol/L Blood Urea Nitrogen 77 mg/dl Creatinine 10.00 mg/dl Est Creatinine Clear Calc Drug Dose 6.0 ml/min Estimated GFR () 4.1 Estimated GFR (Non- 3.5 BUN/Creatinine Ratio 7.7 Random Glucose 212 mg/dl Calcium Level 7.3 mg/dl Random Vancomycin Level 17.7 mcg/ml Assessment & Plan 71 yo female with active tobacco abuse a/w copd exacerbation with frequent hospital admissions over the past month. ESRD-pt with copd exacerbation; trying to remove fluid as tolerated on dialysis ; tolerating HD today; next tx tentatively 05/18 at [facility]; orders given Anemia of renal failure-continue procrit for goal hg of 10 to 11. hg 8 again today; will give venofer w/ next txs as well as cont epopoietin
[2016-05-15] MEDS: FUROSEMIDE 40 MG TAB PO SCH (14:34)
[2016-05-15] MEDS: PANTOprazole SOD 40 MG TAB PO SCH (14:34)
[2016-05-15] MEDS ORDERED: VANCOMYCIN INJ 750 MG in SODIUM CHLORIDE 0.9% 250ML 250 ML IV ONE (16:00)
[2016-05-15] MEDS: CEFEPIME IV 1,000 MG in DEXTROSE 5% 100ML 100 ML IV SCH (18:24)
[2016-05-15] MEDS ORDERED: INSULIN GLARGINE SOLOSTAR 100 UNITS/ML 3 ML PEN SC ONE (21:15)
--- NOTE | 2016-05-15 21:19 | Progress Note ---
Medicine Progress Note Date & Time of Visit: May 15, 2016 at 21:14. Subjective Pt was seen and examined sitting in chair very comfortable with daughter next to her Pt said that she feels good she said her breathing feels much better denies any chest pain, palpitation, dizziness Objective Last 8 Hrs Date Time Temp Pulse Resp B/P Pulse Ox O2 Delivery O2 Flow Rate FiO2 05/15/16 19:27 60 18 97 Nasal Cannula 3.0 05/15/16 16:20 100 Room Air 2.5 05/15/16 14:47 36.6 64 20 173/77 100 Room Air 05/15/16 14:36 67 18 91 Nasal Cannula 3.0 05/15/16 13:30 61 139/60 05/15/16 13:15 56 135/63 Physical Exam: General- no acute distress Head- atraumatic Eyes- PERRL, EOMI ENT- oropharynx clear Neck- supple, no JVD Lungs- Decrease breath sound Heart- regular rhythm Abdomen- normal bowel sounds Extremities- +edema, no calf tenderness Neuro- alert, oriented x 3; PERRL, EOMI; no facial palsy Skin- warm & dry Laboratory Results: Last 24 Hours Test 05/15/16 06:06 05/15/16 06:54 05/15/16 14:41 05/15/16 16:39 White Blood Count 8.00 K/uL Red Blood Count 2.80 M/uL Hemoglobin 8.4 g/dL Hematocrit 26.3 % Mean Corpuscular Volume 93.9 fL Mean Corpuscular Hemoglobin 30.0 pg Mean Corpuscular Hemoglobin Concent 31.9 g/dl RDW Standard Deviation 60.5 fL RDW Coefficient of Variation 18.1 % Platelet Count 210 K/uL Mean Platelet Volume 10.3 fL Nucleated RBC Absolute Count (auto) 0.06 K/uL Nucleated Red Blood Cells % 0.8 % Sodium Level 136 mmol/L Potassium Level 4.7 mmol/L Chloride Level 96 mmol/L Carbon Dioxide Level 23 mmol/L Anion Gap 17.0 mmol/L Blood Urea Nitrogen 77 mg/dl Creatinine 10.00 mg/dl Est Creatinine Clear Calc Drug Dose 6.0 ml/min Estimated GFR () 4.1 Estimated GFR (Non- 3.5 BUN/Creatinine Ratio 7.7 Random Glucose 212 mg/dl Calcium Level 7.3 mg/dl Random Vancomycin Level 17.7 mcg/ml Bedside Glucose 234 mg/dl 157 mg/dl 228 mg/dl Test 05/15/16 20:11 05/15/16 20:55 05/15/16 21:04 Bedside Glucose 428 mg/dl 382 mg/dl Assessment & Plan WORSENING SOB Possible 2nd to COPD exacerbation vs Pneumonia vs CHF CXR on admission showed possible bibasilar infiltrates vs early CHF Repeat cxr this yesterday morning after HD done yesterday showed small pleural effusions and bibasilar consolidation, right greater than left Elevated procalcitonin, neutropenia Continue IV vanco and cefepime Will change abx to PO IV steroid changed to PO prednisone 40 mg BID Continue duoneb treatment continue supplemental O2 clinically stable CHRONIC ANEMIA -HgB 7.6 on admission today hgb 8.4 coumadin on hold -cont Protonix Monitor h/h and if hbg drops below 8, transfuse prbc ESRD ON HD -HD , , Sat Nephro on board INSULIN-DEPENDENT DM 2 -recent A1C 5.0 -cont Lantus -start ISS monitor BSG AC HS PAROXYSMAL AFIB -cont holding Coumadin due to recent GI bleed -cont metoprolol -monitor HTN -cont amlodipine, clonidine, losartan and metoprolol -monitor DVT PROPHYLAXIS -SCDs only for now due to anemia/recent GI bleed CODE STATUS FULL CODE DISPOSITION. Waiting for placement for [facility] for rehab Consultants: Nephrology Current Inpatient Medications: Current Inpatient Medications Medications (Trade) Dose Ordered Sig/Joan Route Start Time Stop Time Status Last Admin Dose Admin Acetaminophen (Tylenol Tab) 650 mg Q4H PRN PO 05/11/16 10:00 06/10/16 09:59 Ondansetron HCl (Zofran Inj) 4 mg Q6H PRN IV 05/11/16 10:00 06/10/16 09:59 Nitroglycerin (Nitrostat Tab) 0.4 mg UD PRN SL 05/11/16 10:00 06/10/16 09:59 Insulin Aspart (novoLOG ASPART) SLIDING SCALE If C... ACHS SC 05/11/16 16:15 05/15/16 18:33 6 UNITS Glucose (Glucose 40% Gel) 15-30 GRAMS 15 GRAMS... UD PRN PO 05/11/16 10:15 06/10/16 10:14 Glucose (Glucose Chew Tab) 4-8 Tablets 4 Tabl... UD PRN PO 05/11/16 10:15 06/10/16 10:14 Dextrose (Dextrose 50% 50ML Syringe) 25-50ML OF 50% DW IV FOR... UD PRN IV 05/11/16 10:15 06/10/16 10:14 Glucagon (Glucagon Inj) 1 mg UD PRN SQ 05/11/16 10:15 06/10/16 10:14 Amlodipine Besylate (Norvasc Tab) 10 mg QAM PO 05/12/16 09:00 06/11/16 08:59 05/15/16 08:30 10 MG Clonidine HCl (Catapres Tab) 0.1 mg QAM PO 05/12/16 09:00 06/11/16 08:59 05/15/16 08:29 0.1 MG Diphenoxylate HCl/ Atropine (Lomotil Tab) 1 tab BID PO 05/11/16 21:00 06/10/16 20:59 05/15/16 08:30 1 TAB Losartan Potassium (coZAAR TAB) 100 mg QAM PO 05/12/16 09:00 06/11/16 08:59 05/15/16 08:31 100 MG Metoprolol Tartrate (Lopressor Tab) 37.5 mg BID PO 05/11/16 21:00 06/10/16 20:59 05/14/16 20:43 37.5 MG Pantoprazole Sodium (Protonix Tab) 40 mg DAILY PO 05/12/16 09:00 06/11/16 08:59 05/15/16 14:34 40 MG Prednisolone Acetate (Pred Forte 1% Oph Susp) 1 drops QAM OPL 05/12/16 09:00 06/11/16 08:59 05/15/16 08:28 1 DROPS Furosemide (Lasix Tab) 40 mg DAILY PO 05/12/16 09:00 06/11/16 08:59 05/15/16 14:34 40 MG Nicotine (Nicoderm Cq 21MG Patch) 1 patch QAM TD 05/12/16 09:00 06/11/16 08:59 Miscellaneous 1 ea 1 ea HS N/A 05/11/16 21:00 3/16/17 20:59 Cefepime HCl/ Dextrose (Maxipime IV/D5 100ml) 111.3 ml @ 200 mls/hr DAILY@1800 IV 05/13/16 18:00 05/20/16 17:59 05/15/16 18:24 200 MLS/HR Cefepime HCl (Consult) 1 ea UD PRN N/A 05/12/16 12:15 06/11/16 12:14 Vancomycin HCl (Consult) 1 ea UD PRN N/A 05/12/16 12:15 06/11/16 12:14 Ipratropium [place] (Atrovent 0.02% 0.5MG/2.5ML Neb) 0.5 mg Q6R INH 05/13/16 03:00 06/12/16 02:59 05/15/16 19:27 0.5 MG Levalbuterol (Xopenex 1.25MG/ 0.5ML Neb) 1.25 mg Q6R INH 05/13/16 03:00 06/12/16 02:59 05/15/16 19:27 1.25 MG Prednisone (PredniSONE TAB) 40 mg BIDM PO 05/14/16 20:00 06/13/16 19:59 05/15/16 18:24 40 MG Insulin Glargine (Lantus Solostar Pen) 30 unit QAM SC 05/16/16 09:00 06/15/16 08:59 UNV Insulin Glargine (Lantus Solostar Pen) 10 unit UD ONCE SC 05/15/16 21:15 05/15/16 21:16 UNV
[2016-05-15 22:30] LABS: BUN/CREATININE RATIO 7.3 (10-20); CALCIUM 6.8 mg/dl (8.5-10.1); POTASSIUM 4.1 mmol/L (3.5-5.1)
[2016-05-15 22:32] LABS: CREATININE 6.6 mg/dl (0.60-1.20)
[2016-05-15 22:47] LABS: BETA-HYDROXYBUTYRATE 0.94 mg/dL (0.2-2.81)
[2016-05-16] VITALS (13 sets, daily range): BP systolic 152–170; BP diastolic 54–77; PULSE 57–82; TEMP 36.6–36.9; O2SAT 91–100
[2016-05-16] MEDS ORDERED: INSULIN ASPART 100 UNITS/ML 3 ML PEN SC ONE (00:24)
[2016-05-16] MEDS: ALBUMIN HUMAN 25% 12.5 GM/50 ML VIAL IV SCH ×2 (00:27→01:17)
[2016-05-16] MEDS: LEVALBUTEROL 1.25MG/0.5ML NEB INH SCH ×3 (03:06→14:15)
[2016-05-16] MEDS: IPRATROPIUM BROMIDE NEB SOLN 0.02% 2.5 ML VIAL INH SCH ×3 (03:06→14:15)
[2016-05-16 06:35] LABS: HEMATOCRIT 25.5 % (37-47); MEAN CORPUSCULAR HEMOGLOBIN 30.8 pg (25-34); MEAN CORPUSCULAR HGB CONC 31.8 g/dl (32-36); MEAN PLATELET VOLUME 10.4 fL (7.4-10.4); PLATELET COUNT 173 K/uL (130-400); RED BLOOD COUNT 2.63 M/uL (4.2-5.4); WHITE BLOOD COUNT 7.64 K/uL (4.8-10.8)
[2016-05-16 07:29] LABS: BUN/CREATININE RATIO 8.4 (10-20); CALCIUM 7.5 mg/dl (8.5-10.1); CREATININE 7.2 mg/dl (0.60-1.20); POTASSIUM 4.6 mmol/L (3.5-5.1)
[2016-05-16] MEDS: FUROSEMIDE 40 MG TAB PO SCH (07:53)
[2016-05-16] MEDS: PANTOprazole SOD 40 MG TAB PO SCH (07:53)
[2016-05-16] MEDS: PrednisoLONE ACET 1% OP SUSP 5 ML BTL OPL SCH (07:53)
[2016-05-16] MEDS: DIPHENOXYLATE/ATROPINE 2.5/0.025MG TAB PO SCH (07:53)
[2016-05-16] MEDS: LOSARTAN POTASSIUM 50 MG TAB PO SCH (07:53)
[2016-05-16] MEDS: CLONIDINE HCL 0.1 MG TAB PO SCH (07:54)
[2016-05-16] MEDS: METOPROLOL TARTRATE 25 MG TAB PO SCH (07:54)
[2016-05-16] MEDS: AMLODIPINE BESYLATE 5 MG TAB PO SCH (07:54)
[2016-05-16] MEDS: NICOTINE 21 MG/24 HR TDSY TD SCH (08:23)
[2016-05-16] MEDS: INSULIN ASPART 100 UNITS/ML 3 ML PEN SC SCH ×2 (08:48→12:31)
[2016-05-16] MEDS ORDERED: INSULIN GLARGINE SOLOSTAR 100 UNITS/ML 3 ML PEN SC SCH (09:00)
--- NOTE | 2016-05-16 12:09 | Progress Note ---
Medicine Progress Note Date & Time of Visit: May 16, 2016 at 11:47. Subjective Pt was seen and examined Sitting in chair very comfortable with no distress Pt said that last night she did not sleep well because the had to give her IV albumin she thought that she was anxious because she thought her hgb dropped and they were giving her blood. Pt said that she is feeling much better compared to when she came to the ED Denies any chest pain, palpitation, dizziness Objective Last 8 Hrs Date Time Temp Pulse Resp B/P Pulse Ox O2 Delivery O2 Flow Rate FiO2 05/16/16 09:24 36.8 57 16 164/68 100 Nasal Cannula 3.0 05/16/16 08:00 Nasal Cannula 2.5 05/16/16 07:04 59 18 97 Nasal Cannula 3.0 Physical Exam: General- no acute distress Head- atraumatic Eyes- PERRL, EOMI ENT- oropharynx clear Neck- supple, no JVD Lungs- Decrease breath sound, no wheezing Heart- regular rhythm Abdomen- normal bowel sounds Extremities- +edema, no calf tenderness Neuro- alert, oriented x 3; PERRL, EOMI; no facial palsy Skin- warm & dry Laboratory Results: Last 24 Hours Test 05/15/16 14:41 05/15/16 16:39 05/15/16 20:11 05/15/16 20:55 Bedside Glucose 157 mg/dl 228 mg/dl 428 mg/dl 382 mg/dl Test 05/15/16 21:26 05/16/16 00:47 05/16/16 06:05 05/16/16 07:50 Sodium Level 137 mmol/L 139 mmol/L Potassium Level 4.1 mmol/L 4.6 mmol/L Chloride Level 97 mmol/L 100 mmol/L Carbon Dioxide Level 25 mmol/L 26 mmol/L Anion Gap 15.0 mmol/L 13.0 mmol/L Blood Urea Nitrogen 48 mg/dl 61 mg/dl Creatinine 6.60 mg/dl 7.20 mg/dl Est Creatinine Clear Calc Drug Dose 9.6 ml/min 8.3 ml/min Estimated GFR () 6.8 6.1 Estimated GFR (Non- 5.9 5.3 BUN/Creatinine Ratio 7.3 8.4 Random Glucose 364 mg/dl 165 mg/dl Calcium Level 6.8 mg/dl 7.5 mg/dl Magnesium Level 2.0 mg/dl Beta-Hydroxybutyric Acid 0.94 mg/dL Bedside Glucose 343 mg/dl 179 mg/dl White Blood Count 7.64 K/uL Red Blood Count 2.63 M/uL Hemoglobin 8.1 g/dL Hematocrit 25.5 % Mean Corpuscular Volume 97.0 fL Mean Corpuscular Hemoglobin 30.8 pg Mean Corpuscular Hemoglobin Concent 31.8 g/dl RDW Standard Deviation 63.7 fL RDW Coefficient of Variation 18.8 % Platelet Count 173 K/uL Mean Platelet Volume 10.4 fL Nucleated RBC Absolute Count (auto) 0.07 K/uL Nucleated Red Blood Cells % 0.9 % Diagnostic Imaging: TWO VIEW CHEST CLINICAL HISTORY: Follow pneumonia. FINDINGS: PA and lateral chest radiographs are compared to study dated 05/11/2016 and correlated with chest CT dated 03/18/2016. The heart is enlarged and there is atherosclerotic calcification of the thoracic aorta. The pulmonary vasculature is noncongested. Emphysema and chronic interstitial thickening are similar to previous. There is bibasilar airspace consolidation, right greater than left with small pleural effusions. This appears modestly increased from 05/11/2016. There is no pneumothorax. The skeletal structures are osteopenic. The bony thorax appears intact. IMPRESSION: 1. Cardiomegaly and emphysema. There is no radiographic evidence of congestive failure. 2. Small pleural effusions and bibasilar consolidation, right greater than left. This likely represents an infectious/inflammatory pneumonitis and appears modestly increased from 05/11/2016. Radiographic follow-up to resolution is recommended. Electronically signed by: Luigi García M.D. Assessment & Plan WORSENING SOB Possible 2nd to COPD exacerbation vs Pneumonia vs CHF CXR on admission showed possible bibasilar infiltrates vs early CHF Repeat cxr this yesterday morning after HD done yesterday showed small pleural effusions and bibasilar consolidation, right greater than left Elevated procalcitonin, neutropenia On IV vanco and cefepime day 5 Will change abx to PO levaquin 500mg q48 taper prednisone to 40mg daily Continue duoneb treatment Continue supplemental O2 clinically stable CHRONIC ANEMIA HgB 7.6 on admission Today hgb 8.1 Coumadin has been held since last admission Pt would like to speak with her PCP and cardiology first before she can feel comfortable to restart it. Will defer to primary physician to resume Coumadin once hgb stable Cont Protonix Monitor h/h and if hbg drops below 8, transfuse prbc ESRD ON HD -HD Hillary Croley, Luis Carlos Nephariel on board INSULIN-DEPENDENT DM 2 -recent A1C 5.0 -cont Lantus -start ISS monitor BSG AC HS PAROXYSMAL AFIB -cont holding Coumadin due to recent GI bleed -Pt would like to speak with her PCP and cardiology first before she can feel comfortable to restart it. -cont metoprolol -monitor CHRONIC DIARRHEA Unknown etiology In the last admission GI recommended Colestid 2grams BID (not taken with other meds or vitamins). Diarrhea slightly improved compare to last admission HTN -cont amlodipine, clonidine, losartan and metoprolol -Clonidine can be titrate up if BP stays elevating - Continue monitor BP DVT PROPHYLAXIS -SCDs only for now due to anemia/recent GI bleed CODE STATUS FULL CODE DISPOSITION. Will transfer to [facility] for rehab today Dr. Reed (nephro) already gave order for HD to be done at [facility] Consultants: Nephrology Current Inpatient Medications: Current Inpatient Medications Medications (Trade) Dose Ordered Sig/Joan Route Start Time Stop Time Status Last Admin Dose Admin Acetaminophen (Tylenol Tab) 650 mg Q4H PRN PO 05/11/16 10:00 06/10/16 09:59 Ondansetron HCl (Zofran Inj) 4 mg Q6H PRN IV 05/11/16 10:00 06/10/16 09:59 Nitroglycerin (Nitrostat Tab) 0.4 mg UD PRN SL 05/11/16 10:00 06/10/16 09:59 Glucose (Glucose 40% Gel) 15-30 GRAMS 15 GRAMS... UD PRN PO 05/11/16 10:15 06/10/16 10:14 Glucose (Glucose Chew Tab) 4-8 Tablets 4 Tabl... UD PRN PO 05/11/16 10:15 06/10/16 10:14 Dextrose (Dextrose 50% 50ML Syringe) 25-50ML OF 50% DW IV FOR... UD PRN IV 05/11/16 10:15 06/10/16 10:14 Glucagon (Glucagon Inj) 1 mg UD PRN SQ 05/11/16 10:15 06/10/16 10:14 Amlodipine Besylate (Norvasc Tab) 10 mg QAM PO 05/12/16 09:00 06/11/16 08:59 05/16/16 07:54 10 MG Clonidine HCl (Catapres Tab) 0.1 mg QAM PO 05/12/16 09:00 06/11/16 08:59 05/16/16 07:54 0.1 MG Diphenoxylate HCl/ Atropine (Lomotil Tab) 1 tab BID PO 05/11/16 21:00 06/10/16 20:59 05/16/16 07:53 1 TAB Losartan Potassium (coZAAR TAB) 100 mg QAM PO 05/12/16 09:00 06/11/16 08:59 05/16/16 07:53 100 MG Metoprolol Tartrate (Lopressor Tab) 37.5 mg BID PO 05/11/16 21:00 06/10/16 20:59 05/16/16 07:54 37.5 MG Pantoprazole Sodium (Protonix Tab) 40 mg DAILY PO 05/12/16 09:00 06/11/16 08:59 05/16/16 07:53 40 MG Prednisolone Acetate (Pred Forte 1% Oph Susp) 1 drops QAM OPL 05/12/16 09:00 06/11/16 08:59 05/16/16 07:53 1 DROPS Furosemide (Lasix Tab) 40 mg DAILY PO 05/12/16 09:00 06/11/16 08:59 05/16/16 07:53 40 MG Nicotine (Nicoderm Cq 21MG Patch) 1 patch QAM TD 05/12/16 09:00 06/11/16 08:59 Miscellaneous 1 ea 1 ea HS N/A 05/11/16 21:00 06/10/16 20:59 05/15/16 22:10 1 EA Cefepime HCl/ Dextrose (Maxipime IV/D5 100ml) 111.3 ml @ 200 mls/hr DAILY@1800 IV 05/13/16 18:00 05/20/16 17:59 05/15/16 18:24 200 MLS/HR Cefepime HCl (Consult) 1 ea UD PRN N/A 05/12/16 12:15 06/11/16 12:14 Vancomycin HCl (Consult) 1 ea UD PRN N/A 05/12/16 12:15 06/11/16 12:14 Ipratropium [place] (Atrovent 0.02% 0.5MG/2.5ML Neb) 0.5 mg Q6R INH 05/13/16 03:00 06/12/16 02:59 05/16/16 07:04 0.5 MG Levalbuterol (Xopenex 1.25MG/ 0.5ML Neb) 1.25 mg Q6R INH 05/13/16 03:00 06/12/16 02:59 05/16/16 07:04 1.25 MG Insulin Glargine (Lantus Solostar Pen) 30 unit QAM SC 05/16/16 09:00 06/15/16 08:59 05/16/16 07:58 30 UNIT Insulin Aspart (novoLOG ASPART) SLIDING SCALE If C... ACHS SC 05/16/16 06:30 06/15/16 06:29 05/16/16 08:48 4 UNITS Prednisone (PredniSONE TAB) 40 mg DAILY PO 05/17/16 09:00 06/16/16 08:59
[2016-05-16] MEDS ORDERED: INSDGI SC (12:22)
[2016-05-16] MEDS ORDERED: LEVO1TAB34 PO (12:22)
[2016-05-16] MEDS ORDERED: PRED10TA PO (12:22)
--- NOTE | 2016-05-16 12:36 | Discharge Instructions ---
Discharge Instructions Admission Reason for Admission: SOB Discharge Discharge Diagnosis / Problem: Pneumonia, COPD exarcerbation, Chronic Anemia, Paroxysmal Afib, ESRD on HD Discharge Goals Goal(s): Decrease discomfort, Improve function, Improve disease control Activity Recommendations Activity Limitations: resume your previous activity (as tolerated) . Instructions / Follow-Up Instructions / Follow-Up Will be discharge to [facility] Please follow up with your primary care physician once discharge from rehab Coumadin on hold due to recent admission for GI bleed Continue HD Continue PT/OT Fall precaution Finish antibiotic course of Levaquin 500 mg every other day x3 Continue Prednisone taper Continue monitor Hemoglobin Case discussed with the physician at [facility] Diet Patient's current hospital diet: Low Sodium Diet (2gm Na), Diabetes Type 2 Diet Discharge Diet Recommended Diet: Diabetes Type 2 Diet Pending Studies Studies pending at discharge: no Laboratory Results Hemoglobin A1c Test 05/12/16 05:23 Range/Units Estimated Average Glucose 94 mg/dl Hemoglobin A1c 4.9 4.5-5.6 % Medical Emergencies . Who to Call and When: Medical Emergencies: If at any time you feel your situation is an emergency, please call 911 immediately. . Non-Emergent Contact Non-Emergency issues call your: Primary Care Provider Call Non-Emergent contact if: you have any medication questions . . "Provider Documentation" section prepared by Hansel Chaudhry. VTE Core Measure Inpt VTE Proph given/why not?: SCD's
[2016-05-16] MEDS ORDERED: COLE1TAB PO (12:57)
--- NOTE | 2016-05-17 00:46 | Discharge Summary ---
Discharge Summary Admission Date: May 11, 2016 at 09:59 Discharge Date: May 16, 2016 Discharge Disposition: Rehab Principal Diagnosis: Dyspnea Secondary Diagnoses/Problems: Pneumonia COPD exarcerbation Chronic Anemia Paroxysmal Afib ESRD on HD P. Afib Chronic Diarrhea HTN Procedures: CLINICAL HISTORY: Follow pneumonia. FINDINGS: PA and lateral chest radiographs are compared to study dated 05/11/2016 and correlated with chest CT dated 03/18/2016. The heart is enlarged and there is atherosclerotic calcification of the thoracic aorta. The pulmonary vasculature is noncongested. Emphysema and chronic interstitial thickening are similar to previous. There is bibasilar airspace consolidation, right greater than left with small pleural effusions. This appears modestly increased from 05/11/2016. There is no pneumothorax. The skeletal structures are osteopenic. The bony thorax appears intact. IMPRESSION: 1. Cardiomegaly and emphysema. There is no radiographic evidence of congestive failure. 2. Small pleural effusions and bibasilar consolidation, right greater than left. This likely represents an infectious/inflammatory pneumonitis and appears modestly increased from 05/11/2016. Radiographic follow-up to resolution is recommended. Electronically signed by: Luigi García M.D. Consultations: Nephrology Medication Reconciliation New Medications: Colestipol Hcl (Colestid) 1 Gm Tab 1 GM PO BID for 7 Days, #14 TAB For diarrhea may increase dose if diarrhea persists Levofloxacin (Levaquin) 500 Mg Tab 500 MG PO Q2D for 3 Days, #3 TAB Prednisone Tab (Prednisone) 10 Mg Tab 10 MG PO UD for 7 Days, TAB Take 4 tabs for 2 days, then 3 tabs for 2 days, then 2 tabs for 2 days, then 1 tab for 1 day and stop Changed Medications: Insulin Glargine (Lantus) 100 Unit/Ml Inj 30 UNITS SC QAM for 30 Days, VIAL (Changed from: 26 UNITS) Continued Medications: Albuterol Hfa (Ventolin Hfa) 200 Puffs/32619 Mcg Aers 1 PUFFS INH Q4 Amlodipine (Norvasc) 10 Mg Tab 10 MG PO QAM Clonidine Hcl (Catapres) 0.1 Mg Tab 0.1 MG PO QAM, TAB Cyanocobalamin (Cyanocobalamin) 1,000 Mcg/Ml Inj 1000 MCG IM MONTHLY Diphenoxylate/Atropine (Diphenoxylate/Atropine 2.5-0.025 mg) 1 Tab Tab 1 TAB PO BID, #30 TAB Epoetin [place] (Procrit) 10,000 Units Inj per dialysis clinic Ergocalciferol (Vitamin D 57787 Unit) 50,000 Unit Cap 27097 UNIT PO MONTHLY, CAP 9th Fluticasone Prop/Salmeterol (Advair Diskus 250/50 60 Dose) 1 Ea Aerp 2 PUFF INH BID Furosemide (Furosemide) 40 Mg Tab 40 MG PO DAILY Insulin Aspart (Novolog Flexpen) 100 Units/Ml Inj UNITS SQ UD Ipratropium-Albuterol (Duoneb) 3 Ml Nebu 1 TREATMENT INH QID PRN for SOB/Wheezing Lidocaine-Prilocaine (Fvjkltaab-Pmmqzvxxmw-Ohcl 2.5-2.5 %) 1 Cre Cre 1 APPLN TOP UD PRN for PRIOR TO DIALYSIS APPLY SMALL AMT TO ACCESS SITE 1-2 HOURS BEFORE DIALYSIS. COVER WITH SARAN WRAP Losartan Potassium (Cozaar) 100 Mg Tab 100 MG PO QAM, TAB Metoprolol Tartrate (Lopressor) (Lopressor) 25 Mg Tab 37.5 MG PO BID, TAB Ondansetron Hcl (Zofran) 8 Mg Tab 8 MG PO Q8 PRN for Nausea or Vomiting, TAB Oxygen (Oxygen) Gas 2.5 LITERS NA HS Pantoprazole (Pantoprazole Sodium) 40 Mg Tab 1 TAB PO DAILY Prednisolone Acetate (Ophth) (Pred Forte 1% Oph) 1 % Neena 1 DROPS OPL QAM Warfarin Sod (Coumadin) 5 Mg Tab 5 MG PO DAILY Admission Information HPI (per Admitting provider): This is a 71 y/o female with PMHx of COPD with ongoing tobacco use, ESRD on HD, IDDM, PAF, HTN and other problems as outlined below who presents to the ED c/o worsening SOB since yesterday. Pt was recently admitted to [facility] from 05/01-05/06 with GI bleed. She was transfused 5 units however GI opted to hold off on any scopes. Pt was discharged in stable condition with HgB 8.0. Pt reports she has still been having dark, black stools at home. Yesterday she noticed worsening SOB. SOB is worse with laying flat and is unchanged with exertion. Sxs are assoc with chest tightness and wheezing. Pt tried using her nebulizer at home which only gave her temporary relief. She mentions bilat LE weakness but no worsening edema. Pt has a history of ESRD on HD (). She follows with nephroDr. Tijerina. Pt denies fever/chills, diaphoresis, chest pain, palpitations, abd pain, N/V, bladder issues, worsening LE edema, calf pain, lightheadedness/dizziness. In the ED, vitals are stable. Pt is saturating well on 4L O2. She is afebrile with no leukocytosis. HgB 7.6. K+ 4.2. BNP>23k. CXR bibasilar parenchymal infiltrates vs early CHF. Pt received duoneb in the ED which gave her significant relief. She will be admitted for further evaluation and treatment. Physical Exam (per Admitting): General Appearance: WD/WN, no apparent distress, + pertinent finding (Pt is sitting up in bed with son-in-law at bedside ) Head: normocephalic, atraumatic Eyes: normal inspection ENT: hearing grossly normal Neck: supple Respiratory/Chest: chest non-tender, no respiratory distress, no accessory muscle use, + wheezing (expiratory wheezing) Cardiovascular: regular rate, rhythm Abdomen/GI: normal bowel sounds, non tender, soft Back: normal inspection Extremities/Musculoskelatal: normal inspection, no calf tenderness, + swelling (trace swelling bilat) Neurologic/Psych: alert, normal mood/affect, oriented x 3 Skin: normal color, warm/dry Hospital Course WORSENING SOB Possible 2nd to COPD exacerbation vs Pneumonia vs CHF CXR on admission showed possible bibasilar infiltrates vs early CHF Repeat cxr this yesterday morning after HD done yesterday showed small pleural effusions and bibasilar consolidation, right greater than left Elevated procalcitonin, neutropenia On IV vanco and cefepime day 5 Will change abx to PO levaquin 500mg q48 taper prednisone to 40mg daily Continue duoneb treatment Continue supplemental O2 clinically stable CHRONIC ANEMIA HgB 7.6 on admission Today hgb 8.1 Coumadin has been held since last admission Pt would like to speak with her PCP and cardiology first before she can feel comfortable to restart it. Will defer to primary physician to resume Coumadin once hgb stable Cont Protonix Monitor h/h and if hbg drops below 8, transfuse prbc ESRD ON HD -HD Tues, [place], Sat Nephro on board INSULIN-DEPENDENT DM 2 -recent A1C 5.0 -cont Lantus -start ISS monitor BSG AC HS PAROXYSMAL AFIB -cont holding Coumadin due to recent GI bleed -Pt would like to speak with her PCP and cardiology first before she can feel comfortable to restart it. -cont metoprolol -monitor CHRONIC DIARRHEA Unknown etiology In the last admission GI recommended Colestid 2grams BID (not taken with other meds or vitamins). Diarrhea slightly improved compare to last admission HTN -cont amlodipine, clonidine, losartan and metoprolol -Clonidine can be titrate up if BP stays elevating - Continue monitor BP DVT PROPHYLAXIS -SCDs only for now due to anemia/recent GI bleed CODE STATUS FULL CODE DISPOSITION. Will transfer to [facility] for rehab today Dr. Reed (nephro) already gave order for HD to be done at [facility] Total time spent on discharge = 35 minutes This includes examination of the patient, discharge planning, medication reconciliation, and communication with other providers. Discharge Instructions Discharge Instructions Admission Reason for Admission: SOB Discharge Discharge Diagnosis / Problem: Pneumonia, COPD exarcerbation, Chronic Anemia, Paroxysmal Afib, ESRD on HD Discharge Goals Goal(s): Decrease discomfort, Improve function, Improve disease control Activity Recommendations Activity Limitations: resume your previous activity (as tolerated) . Instructions / Follow-Up Instructions / Follow-Up Will be discharge to [facility] Please follow up with your primary care physician once discharge from rehab Coumadin on hold due to recent admission for GI bleed Continue HD Continue PT/OT Fall precaution Finish antibiotic course of Levaquin 500 mg every other day x3 Continue Prednisone taper Continue monitor Hemoglobin Case discussed with the physician at medical center clinic Current Hospital Diet Patient's current hospital diet: Low Sodium Diet (2gm Na), Diabetes Type 2 Diet Discharge Diet Recommended Diet: Diabetes Type 2 Diet Pending Studies Studies pending at discharge: no Laboratory Results Hemoglobin A1c Test 05/12/16 05:23 Range/Units Estimated Average Glucose 94 mg/dl Hemoglobin A1c 4.9 4.5-5.6 % Medical Emergencies . Who to Call and When: Medical Emergencies: If at any time you feel your situation is an emergency, please call 911 immediately. . Non-Emergent Contact Non-Emergency issues call your: Primary Care Provider Call Non-Emergent contact if: you have any medication questions . . "Provider Documentation" section prepared by Hansel Chaudhry. VTE Core Measure Inpt VTE Proph given/why not?: SCD's Additional Copies To iWllian Kerns Doriann M.D.
[2016-07-17] MEDS ORDERED: LVQ500 PO (11:36)
[2016-07-17] MEDS ORDERED: PRD20 PO (11:36)
[2016-11-01] MEDS ORDERED: WARF5TAB90 PO ×2 (11:20→11:35)
[2016-11-01] MEDS ORDERED: LVQ500 PO ×2 (11:20→11:35)
[2016-11-01] MEDS ORDERED: LCTX PO ×2 (11:20→11:35)
== END 2016-05-16 15:30 | DRG 190 ==
LOC: ENRESERVDT → ENRESERVTM → EDBD 06:19 → C.EDB 06:21 → C.2E 09:59 → C.MS2W 05-13 12:40
PROVIDERS: ADMIT Internal Medicine; ATTEND Internal Medicine
DX: J44.0 Chronic obstructive pulmonary disease with (acute) lower respiratory infection (principal); J18.9 Pneumonia, unspecified organism; N18.6 End stage renal disease; J44.1 Chronic obstructive pulmonary disease with (acute) exacerbation; I50.32 Chronic diastolic (congestive) heart failure; I13.2 Hypertensive heart and chronic kidney disease with heart failure and with stage 5 chronic kidney disease, or end stage renal disease; B00.51 Herpesviral iridocyclitis; I48.0 Paroxysmal atrial fibrillation; E78.5 Hyperlipidemia, unspecified; K52.9 Noninfective gastroenteritis and colitis, unspecified; F17.210 Nicotine dependence, cigarettes, uncomplicated; D63.1 Anemia in chronic kidney disease; E66.9 Obesity, unspecified; Z99.2 Dependence on renal dialysis; Z99.81 Dependence on supplemental oxygen; Z79.01 Long term (current) use of anticoagulants; Z79.4 Long term (current) use of insulin; Z79.899 Other long term (current) drug therapy

== ENCOUNTER 2016-07-13 07:23 | Inpatient (IN) | payer OTHER ==
[~2016-07-13] VITALS: Ht 167.6 cm; Wt 89.0 kg
[2016-07-13] VITALS (23 sets, daily range): BP systolic 150–203; BP diastolic 60–91; PULSE 65–89; TEMP 36.4–36.9; O2SAT 92–97; BMI 33.0
[~2016-07-13 07:23] MED LIST changes: -BENZ100C7 PO; +PANT40TA2 PO; -PRT/40 PO
--- NOTE | 2016-07-13 07:44 | EMERGENCY ROOM VISIT NOTE ---
History Report prepared by Sebastian: Lacey Cook Under the Supervision of: Dr. Alok Willis M.D. First contact with patient: 07:32 Chief Complaint: SHORTNESS OF BREATH Stated Complaint: DIFFICULTY BREATHING Nursing Triage Summary: pt here with increased sob, dry cough since this am. pt went to dialysis, pt had dialysis started but not finished. pt denies prod cough or feeling ill. History of Present Illness The patient is a 71 year old female who presents to the Emergency Room via EMS with complaints of worsened shortness of breath this morning since 4AM. She woke up from her sleep with her difficulty breathing. En route to the emergency room, she was put on oxygen which helped her breathing slightly. She also complains of a cough that began this morning. This morning, the cough was productive but it is currently dry. She is unsure if she had a fever, although she reports that she has been feeling hot during the night for the past few nights. She reports that her legs were feeling weak yesterday. The patient is a dialysis patient. She went to dialysis this morning, but did not get dialysis due to her symptoms and an ambulance was called. She is not on a blood thinner. Denies any blood loss, recent falls/trauma, numbness, or other complaints. She is a smoker. Past medical history includes COPD and CHF. Source of History: patient Onset: this morning around 0400 Position: other (global) Quality: other (shortness of breath) Timing: worsening Modifying Factors (Relieving): oxygen Associated Symptoms: + cough, + weakness (yesterday), No numbness Review of Systems See HPI for pertinent positives & negatives. A total of 10 systems reviewed and were otherwise negative. 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 Nurse's notes were reviewed and I agree with. Family History Diabetes mellitus FATHER MOTHER BROTHER FH: cancer BROTHER FH: heart disease FATHER Hypertension BROTHER Kidney disease BROTHER Social History Smoking Status: Current Every Day Smoker Drug Use: none Marital Status: Housing Status: lives with family Occupation Status: retired Current/Historical Medications Scheduled Albuterol Hfa (Ventolin Hfa), 1 PUFFS INH Q4 Amlodipine (Norvasc), 10 MG PO QAM Clonidine Hcl (Catapres), 0.1 MG PO QAM Cyanocobalamin (Cyanocobalamin), 1,000 MCG IM MONTHLY Diphenoxylate/Atropine (Diphenoxylate/Atropine 2.5-0.025 mg), 1 TAB PO BID Ergocalciferol (Vitamin D 16810 Unit), 50,000 UNIT PO MONTHLY Fluticasone Prop/Salmeterol (Advair Diskus 250/50 60 Dose), 2 PUFF INH BID Furosemide (Furosemide), 40 MG PO DAILY Insulin Aspart (Novolog Flexpen), UNITS SQ UD Insulin Glargine (Lantus), 26 UNITS SC QAM Losartan Potassium (Cozaar), 100 MG PO QAM Metoprolol Tartrate (Lopressor) (Lopressor), 37.5 MG PO BID Oxygen (Oxygen), 2.5 LITERS NA HS Pantoprazole (Pantoprazole Sodium), 1 TAB PO DAILY Prednisolone Acetate (Ophth) (Pred Forte 1% Oph), 1 DROPS OPL QAM Scheduled PRN Ipratropium-Albuterol (Duoneb), 1 TREATMENT INH QID PRN for SOB/Wheezing Lidocaine-Prilocaine (Zgvkmctyl-Nycqnjvfdw-Errv 2.5-2.5 %), 1 APPLN TOP UD PRN for PRIOR TO DIALYSIS Ondansetron Hcl (Zofran), 8 MG PO Q8 PRN for Nausea or Vomiting Miscellaneous Medications Epoetin Hakan (Procrit) Allergies Coded Allergies: No Known Allergies (Verified , 07/13/16) Physical Exam Vital Signs Date Time Temp Pulse Resp B/P Pulse Ox O2 Delivery O2 Flow Rate FiO2 07/13/16 09:31 65 16 156/88 94 Nasal Cannula 2.0 07/13/16 09:08 97 Room Air 07/13/16 08:35 62 20 158/80 97 Room Air 07/13/16 07:54 67 07/13/16 07:34 Nasal Cannula 2.5 07/13/16 07:23 36.3 68 20 191/77 92 Nasal Cannula 2.5 07/13/16 07:23 92 Nasal Cannula 2.5 Physical Exam General: Non-ill appearing older female. Well developed well nourished in no acute distress, breathing comfortably on room air. Normal speech HEENT: Normal cephalic atraumatic. Pupils are equal round and reactive to light. Extraocular movements are intact. Oropharynx is pink with moist mucous membranes. No swelling of the mouth lips or tongue. Neck: Supple with a midline trachea. No meningeal signs or stiffness, no JVD or bruits. No Stridor. Chest: Crackles in the bases to auscultation bilaterally. No wheezes or rhonchi. No increased work of breathing. Heart: regular rate and rhythm. Abdomen: Soft nontender, nondistended without rebound guarding or rigidity. Extremities: No cyanosis clubbing or edema. No calf tenderness or assymetry. Dialysis fistula in the left arm with palpable thrill, no redness, warmth, or swelling. Spine/Back. Non tender to palpation. No CVA tenderness Skin: Good turgor without rashes. Neurologic exam: Cranial nerves two through 12 are intact. Motor and sensation are intact and symmetrical throughout. Medical Decision & Procedures ER Provider Diagnostic Interpretation: Radiology results as stated below per my review and radiologist interpretation: CHEST ONE VIEW PORTABLE CLINICAL HISTORY: CHEST PAIN dyspnea COMPARISON STUDY: 05/12/2016 FINDINGS: Bibasilar interstitial infiltrative change. No regions of consolidation. Upper lungs are clear. IMPRESSION: Bibasilar interstitial infiltrative change. Electronically signed by: Stevo Sanchez M.D. 07/13/2016 8:06 AM Dictated Date/Time: 07/13/2016 8:05 AM Laboratory Results 07/13/16 07:15 Red Blood Count 3.18, Mean Corpuscular Volume 99.7, Mean Corpuscular Hemoglobin 31.4, Mean Corpuscular Hemoglobin Concent 31.5, Mean Platelet Volume 10.0, Neutrophils (%) (Auto) 76.5, Lymphocytes (%) (Auto) 12.0, Monocytes (%) (Auto) 8.0, Eosinophils (%) (Auto) 2.8, Basophils (%) (Auto) 0.5, Neutrophils # (Auto) 4.97, Lymphocytes # (Auto) 0.78, Monocytes # (Auto) 0.52, Eosinophils # (Auto) 0.18, Basophils # (Auto) 0.03 07/13/16 07:15 Test 07/13/16 07:15 07/13/16 07:52 White Blood Count 6.49 K/uL (4.8-10.8) Red Blood Count 3.18 M/uL (4.2-5.4) Hemoglobin 10.0 g/dL (12.0-16.0) Hematocrit 31.7 % (37-47) Mean Corpuscular Volume 99.7 fL (80-100) Mean Corpuscular Hemoglobin 31.4 pg (25-34) Mean Corpuscular Hemoglobin Concent 31.5 g/dl (32-36) Platelet Count 153 K/uL (130-400) Mean Platelet Volume 10.0 fL (7.4-10.4) Neutrophils (%) (Auto) 76.5 % Lymphocytes (%) (Auto) 12.0 % Monocytes (%) (Auto) 8.0 % Eosinophils (%) (Auto) 2.8 % Basophils (%) (Auto) 0.5 % Neutrophils # (Auto) 4.97 K/uL (1.4-6.5) Lymphocytes # (Auto) 0.78 K/uL (1.2-3.4) Monocytes # (Auto) 0.52 K/uL (0.11-0.59) Eosinophils # (Auto) 0.18 K/uL (0-0.5) Basophils # (Auto) 0.03 K/uL (0-0.2) RDW Standard Deviation 74.0 fL (36.4-46.3) RDW Coefficient of Variation 20.0 % (11.5-14.5) Immature Granulocyte % (Auto) 0.2 % Immature Granulocyte # (Auto) 0.01 K/uL (0.00-0.02) Anisocytosis PRESENT Prothrombin Time 10.3 SECONDS (9.0-12.0) Prothromb Time International Ratio 1.0 (0.9-1.1) Activated Partial Thromboplast Time 28.2 SECONDS (21.0-31.0) Partial Thromboplastin Ratio 1.1 Anion Gap 13.0 mmol/L (3-11) Est Creatinine Clear Calc Drug Dose 6.1 ml/min Estimated GFR () 4.1 Estimated GFR (Non- 3.5 BUN/Creatinine Ratio 7.0 (10-20) Calcium Level 8.8 mg/dl (8.5-10.1) Total Bilirubin 0.9 mg/dl (0.2-1) Direct Bilirubin 0.3 mg/dl (0-0.2) Aspartate Amino Transf (AST/SGOT) 19 U/L (15-37) Alanine Aminotransferase (ALT/SGPT) 24 U/L (12-78) Alkaline Phosphatase 107 U/L (45-117) Total Protein 6.7 gm/dl (6.4-8.2) Albumin 3.8 gm/dl (3.4-5.0) Lipase 121 U/L (73-393) Bedside Troponin I 0.000 ng/ml (0-0.045) ZW-Gor-K-Type Natriuretic Peptide 9477 pg/ml (0-900) Laboratory studies as stated above per my review. ECG Indication: SOB/dyspnea Rate (beats per minute): 67 Rhythm: normal sinus Findings: no acute ischemic change, no ectopy Comparison ECG Date: 05/11/16 Change: no significant change ED Course 0735: Past medical records reviewed. The patient was evaluated in room B12, and a complete history and physical examination were performed. 0829: I reassessed the patient and updated her on results and the treatment plan. 0833: I discussed the case with Dr. John Bang [facility] Hospitalist. The patient will be evaluated for further management. Medical Decision Differentials include CHF, anemia, arrhythmia, COPD exacerbation, electrolyte or metabolic abnormality. This patient comes in as described above. She does have end-stage renal disease ,she also history of COPD and CHF. She is short of breath. Because of this she missed her dialysis today. She does have crackles in her lungs. She's on supplemental oxygen appears comfortable at present. She had a chest x-ray, EKG and multiple blood testing obtained. She was reassessed frequently. She remained stable. Her chest x-ray shows some increased markings in the base of concern is actually more of a CHF/fluid over loaded type picture. She's had no wheezes. She's had no fever or chills at present she has no white count. She' s not significantly hypoxemic at present although feels better with the oxygen on. She has nothing to suggest any significant anemia beyond a baseline hemoglobin 10. I do think she needs to be admitted for further treatment and evaluation and dialysis. She was admitted to [facility] Time Called: 08 Consulting Physician: [facility] Hospital[facility] Returned Call: 08 I discussed the case with her. The patient will be evaluated for further management. Impression Primary Impression: CHF (congestive heart failure) Additional Impressions: End stage renal disease Shortness of breath Scribe Attestation The scribe's documentation has been prepared under my direction and personally reviewed by me in its entirety. I confirm that the note above accurately reflects all work, treatment, procedures, and medical decision making performed by me. Departure Information Dispostion Being Evaluated By Hospitalist Referrals Noam Armando M.D. (PCP) Patient Instructions My [facility] Problem Qualifiers
[2016-07-13 07:55] LABS: BASO % 0.5 %; BASO ABS # 0.03 K/uL (0-0.2); EOS % 2.8 %; HEMATOCRIT 31.7 % (37-47); IG% 0.2 %; LYMPH ABS # 0.78 K/uL (1.2-3.4); MEAN CELL VOLUME 99.7 fL (80-100); MEAN CORPUSCULAR HEMOGLOBIN 31.4 pg (25-34); MEAN CORPUSCULAR HGB CONC 31.5 g/dl (32-36); NEUT % 76.5 %; PLATELET COUNT 153 K/uL (130-400); RED BLOOD COUNT 3.18 M/uL (4.2-5.4); WHITE BLOOD COUNT 6.49 K/uL (4.8-10.8)
--- NOTE | 2016-07-13 08:08 | DIAGNOSTIC IMAGING REPORT ---
CHEST ONE VIEW PORTABLE CLINICAL HISTORY: CHEST PAIN dyspnea COMPARISON STUDY: 05/12/2016 FINDINGS: Bibasilar interstitial infiltrative change. No regions of consolidation. Upper lungs are clear. IMPRESSION: Bibasilar interstitial infiltrative change. Electronically signed by: Stevo Sanchez M.D. 07/13/2016 8:06 AM Dictated Date/Time: 07/13/2016 8:05 AM
[2016-07-13 08:14] LABS: ANISOCYTOSIS PRESENT; COMPLETE YES
[2016-07-13] MEDS ORDERED: INSDGI SC (08:17)
[2016-07-13 08:25] LABS: CALCIUM 8.8 mg/dl (8.5-10.1)
[2016-07-13] MEDS ORDERED: EPOETIN ALFA 10,000 UNITS/ML VIAL SC SCH (09:45)
[2016-07-13] MEDS ORDERED: ONDANSETRON 8 MG TAB PO PRN (09:45)
[2016-07-13] MEDS ORDERED: ALBUT/IPRATROP 3MG/0.5MG NEB 3 ML VIAL INH PRN (09:45)
--- NOTE | 2016-07-13 10:20 | History and Physical ---
History & Physical Date & Time of Service: Jul 13, 2016 at 09:44 Chief Complaint: Difficulty Breathing Primary Care Physician: Noam Armando M.D. History of Present Illness Source: patient This is a 71 y/o female with PMHx of COPD with ongoing tobacco use, ESRD on HD, IDDM, PAF, HTN and other problems as outlined below who presents to the ED c/o worsening SOB that began this morning. Patient reports that this morning around 0400 she was woken up from sleep with shortness of breath. The SOB is worse with laying flat and is unchanged with exertion. Sxs are assoc with diffuse pruritus, wet cough and bilat LE weakness but no edema. Pt tried increasing her oxygen to 3L with no relief. Pt has a history of ESRD on HD (). She went to dialysis this morning however due to her worsening SOB, she was sent to the ED via ambulance and did not receive dialysis. She follows with nephDr. Breezy george. Pt denies fever/chills, diaphoresis, chest pain, palpitations , abd pain, N/V, bladder issues, worsening LE edema, calf pain, lightheadedness/ dizziness. In the ED, vitals are stable. Pt is saturating well on 2L O2. She is afebrile with no leukocytosis. HgB 10. K+ 5.0. CXR bibasilar infiltrates. Pt will be admitted for further evaluation and treatment. Past Medical/Surgical History Medical Problems: (1) A-fib Permanent Comment: paroxysmal Status: Chronic (2) Adrenal adenoma Status: Chronic (3) Anemia of chronic disease Status: Chronic (4) AV fistula Status: Chronic (5) COPD, moderate Permanent Comment: 2L O2 at home Status: Chronic (6) Diastolic dysfunction with chronic heart failure Permanent Comment: echo 07/2014 - EF 60-65%, grade II diastolic dysfunction echo 06/2015 - diastolic function normal Status: Chronic (7) DM type 2 (diabetes mellitus, type 2) Status: Chronic (8) Dyslipidemia Status: Chronic (9) ESRD (end stage renal disease) on dialysis Status: Chronic (10) H/O cardiovascular stress test Permanent Comment: 05/2013 - negative for ischemia Status: Chronic (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 (12) Hypertension Nos Status: Chronic (13) Moderate mitral regurgitation Permanent Comment: echo 06/2015 - calcified mitral valve, moderate MR Status: Chronic (14) Obesity Status: Chronic (15) Osteoarthritis Status: Chronic (16) Pancreatic cyst Status: Chronic (17) Psoriasis Status: Chronic (18) Renal cyst Status: Chronic Surgical Problems: (1) H/O colonoscopy Permanent Comment: 2005, hyperplastic polyps repeat in 10 years Status: Chronic (2) H/O nasal polypectomy Status: Chronic (3) History of cataract surgery Status: Chronic (4) S/P appendectomy Permanent Comment: 1971 Status: Chronic (5) S/P cholecystectomy Permanent Comment: 1971 Status: Chronic (6) S/P left oophorectomy Permanent Comment: 1981 Status: Chronic (7) S/P ASH (total abdominal hysterectomy) Permanent Comment: For Fibroids Status: Resolved Family History Diabetes mellitus FATHER MOTHER BROTHER FH: cancer BROTHER FH: heart disease FATHER Hypertension BROTHER Kidney disease BROTHER Social History Smoking Status: Current Some Day Smoker (1 ppd x 55 years) Alcohol Use: none Drug Use: none Marital Status: Housing status: lives alone Occupational Status: retired Immunizations History of Influenza Vaccine: Yes Influenza Vaccine Date: Dec 26, 2014 History of Tetanus Vaccine?: Yes Tetanus Immunization Date: August 04, 2010 History of Pneumococcal: Yes Pneumococcal Date: Feb 24, 2015 Multi-Drug Resistant Organisms History of MDRO: No Allergies Coded Allergies: No Known Allergies (Verified , 07/13/16) Home Medications Scheduled Albuterol Hfa (Ventolin Hfa), 1 PUFFS INH Q4 Amlodipine (Norvasc), 10 MG PO QAM Clonidine Hcl (Catapres), 0.1 MG PO QAM Cyanocobalamin (Cyanocobalamin), 1,000 MCG IM MONTHLY Diphenoxylate/Atropine (Diphenoxylate/Atropine 2.5-0.025 mg), 1 TAB PO BID Ergocalciferol (Vitamin D 60595 Unit), 50,000 UNIT PO MONTHLY Fluticasone Prop/Salmeterol (Advair Diskus 250/50 60 Dose), 2 PUFF INH BID Furosemide (Furosemide), 40 MG PO DAILY Insulin Aspart (Novolog Flexpen), UNITS SQ UD Insulin Glargine (Lantus), 26 UNITS SC QAM Losartan Potassium (Cozaar), 100 MG PO QAM Metoprolol Tartrate (Lopressor) (Lopressor), 37.5 MG PO BID Oxygen (Oxygen), 2.5 LITERS NA HS Pantoprazole (Pantoprazole Sodium), 1 TAB PO DAILY Prednisolone Acetate (Ophth) (Pred Forte 1% Oph), 1 DROPS OPL QAM Scheduled PRN Ipratropium-Albuterol (Duoneb), 1 TREATMENT INH QID PRN for SOB/Wheezing Lidocaine-Prilocaine (Mlqulmjyc-Gbpjscvtmi-Ywse 2.5-2.5 %), 1 APPLN TOP UD PRN for PRIOR TO DIALYSIS Ondansetron Hcl (Zofran), 8 MG PO Q8 PRN for Nausea or Vomiting Miscellaneous Medications Epoetin Hakan (Procrit) Review of Systems Constitutional: + fatigue, + weakness, No chills, No fever, No sweats Eyes: No worsening of vision ENT: No hearing loss Respiratory: + cough, + dyspnea at rest, + dyspnea on exertion, + shortness of breath, + sputum, No wheezing Cardiovascular: No chest pain, No claudication, No edema Abdomen: No GI bleeding, No constipation, No diarrhea, No nausea, No pain, No vomiting Musculoskeletal: No calf pain, No swelling Genitourinary - Female: No dysuria Neurologic: + weakness Psychiatric: No depression symptoms Endocrine: + fatigue Hematologic / Lymphatic: No abnormal bleeding/bruising Integumentary: No new/changing skin lesions Physical Exam Vital Signs Date Time Temp Pulse Resp B/P Pulse Ox O2 Delivery O2 Flow Rate FiO2 07/13/16 09:08 97 Room Air 07/13/16 08:35 62 20 158/80 97 Room Air 07/13/16 07:54 67 07/13/16 07:34 Nasal Cannula 2.5 07/13/16 07:23 36.3 68 20 191/77 92 Nasal Cannula 2.5 07/13/16 07:23 92 Nasal Cannula 2.5 General Appearance: WD/WN, no apparent distress, + pertinent finding (Pt is laying in bed comfortably ) Head: normocephalic, atraumatic Eyes: normal inspection ENT: hearing grossly normal Neck: supple Respiratory/Chest: chest non-tender, no respiratory distress, no accessory muscle use, + crackles (bilateral bases) Cardiovascular: regular rate, rhythm, no edema, no murmur Abdomen/GI: normal bowel sounds, non tender, soft Back: normal inspection Extremities/Musculoskelatal: normal inspection, no calf tenderness, no pedal edema Neurologic/Psych: alert, normal mood/affect, oriented x 3 Skin: normal color, warm/dry Diagnostics Laboratory Results Results Past 24 Hours Test 07/13/16 07:15 Range/Units White Blood Count 6.49 4.8-10.8 K/uL Red Blood Count 3.18 4.2-5.4 M/uL Hemoglobin 10.0 12.0-16.0 g/dL Hematocrit 31.7 37-47 % Mean Corpuscular Volume 99.7 80-100 fL Mean Corpuscular Hemoglobin 31.4 25-34 pg Mean Corpuscular Hemoglobin Concent 31.5 32-36 g/dl Platelet Count 153 130-400 K/uL Mean Platelet Volume 10.0 7.4-10.4 fL Neutrophils (%) (Auto) 76.5 % Lymphocytes (%) (Auto) 12.0 % Monocytes (%) (Auto) 8.0 % Eosinophils (%) (Auto) 2.8 % Basophils (%) (Auto) 0.5 % Neutrophils # (Auto) 4.97 1.4-6.5 K/uL Lymphocytes # (Auto) 0.78 1.2-3.4 K/uL Monocytes # (Auto) 0.52 0.11-0.59 K/uL Eosinophils # (Auto) 0.18 0-0.5 K/uL Basophils # (Auto) 0.03 0-0.2 K/uL RDW Standard Deviation 74.0 36.4-46.3 fL RDW Coefficient of Variation 20.0 11.5-14.5 % Immature Granulocyte % (Auto) 0.2 % Immature Granulocyte # (Auto) 0.01 0.00-0.02 K/uL Anisocytosis PRESENT Sodium Level 140 136-145 mmol/L Potassium Level 5.0 3.5-5.1 mmol/L Chloride Level 99 98-107 mmol/L Carbon Dioxide Level 28 21-32 mmol/L Anion Gap 13.0 3-11 mmol/L Blood Urea Nitrogen 70 7-18 mg/dl Creatinine 10.00 0.60-1.20 mg/dl Est Creatinine Clear Calc Drug Dose 6.1 ml/min Estimated GFR () 4.1 Estimated GFR (Non- 3.5 BUN/Creatinine Ratio 7.0 10-20 Random Glucose 174 70-99 mg/dl Calcium Level 8.8 8.5-10.1 mg/dl Total Bilirubin 0.9 0.2-1 mg/dl Direct Bilirubin 0.3 0-0.2 mg/dl Aspartate Amino Transf (AST/SGOT) 19 15-37 U/L Alanine Aminotransferase (ALT/SGPT) 24 12-78 U/L Alkaline Phosphatase 107 45-117 U/L Total Protein 6.7 6.4-8.2 gm/dl Albumin 3.8 3.4-5.0 gm/dl Lipase 121 73-393 U/L Diagnostic Radiology CXR IMPRESSION: Bibasilar interstitial infiltrative change. EKG EKG: NSR at 67 bpm with no acute ischemic changes noted; no change when compared to EKG from 05/11/16 Impression Assessment and Plan WORSENING SOB; POSSIBLE PNEUMONIA VS. FLUID OVERLOAD pt presents with worsening SOB assoc with generalized weakness and cough -admit to med/surg -vitals are stable; saturating well on 2L O2 -CXR bibasilar infiltrates -start Levaquin and duonebs -fluid mgmt with dialysis -cont supplemental O2 -monitor ESRD ON HD -HD Vzaa-Rsmrz-Flo; pt did not have dialysis this morning -K+ 5.0 -consult nephro, Dr. Tijerina for dialysis today MODERATE COPD WITH ONGOING TOBACCO USE -uses O2 2.5L HS and PRN during the day -cont inhalers -pt education regarding importance of smoking cessation -monitor CHRONIC ANEMIA -HgB 10.0 (stable) -continue to monitor HgB daily -pt denies active bleed INSULIN-DEPENDENT DM 2 -recent A1C 4.9 -cont Lantus -start ISS -monitor BSG AC HS PAROXYSMAL AFIB -EKG: NSR -Coumadin discontinued in May due to GI bleed -cont metoprolol -monitor HTN -BP stable -cont amlodipine, clonidine, losartan and metoprolol -monitor DVT PROPHYLAXIS -subq heparin CODE STATUS -FULL CODE per discussion with patient upon admission DISPO -Pt seen in collaboration with Dr. Rodriguez. Please see his addendum for further details. Thanks! Attending Addendum:: The patient was seen and examined in ER SOB since early this AM Went for Dialysis and was sent in with SOB Generally very weak and lethargic O/E hemodynamically stable Chest-minimal crackles at the bases wit decreased breath sound bilaterally Heart-regular,no murmur Abdomen;Benign,no masses,bowel sound present Labs a\nd Imaging studies were reviewed Agree with the assessment and plan Dr Leobardo Rodriguez Advanced Directives Existing Living Will: No Existing Power of Molding Technician: No VTE Prophylaxis VTE Risk Assessment Done? Y/N: Yes Risk Level: Moderate
[2016-07-13 10:31] LABS: PARTIAL THROMBOPLASTIN RATIO 1.1; PROTHROMBIN TIME (PATIENT) 10.3 SECONDS (9.0-12.0)
[2016-07-13] MEDS ORDERED: INSULIN ASPART 100 UNITS/ML 3 ML PEN SQ SCH (11:30)
[2016-07-13] MEDS ORDERED: EPOETIN ALFA 10,000 UNITS/ML VIAL IV. SCH (12:00)
[2016-07-13] MEDS: LEVOFLOXACIN 500 MG TAB PO SCH (12:00)
[2016-07-13] MEDS ORDERED: ALBUMIN HUMAN 25% 12.5 GM/50 ML VIAL IV SCH (12:00)
[2016-07-13] MEDS: ALBUTEROL HFA 8 GM INHALER INH SCH ×5 (12:01→23:45)
[2016-07-13] MEDS: LIDOCAINE/PRILOCAINE 2.5% EA CRM EXT SCH (12:51)
[2016-07-13] MEDS: HEPARIN SOD 5000 UNIT/0.5 ML CARP SQ SCH ×2 (14:00→21:36)
--- NOTE | 2016-07-13 15:35 | NEPHROLOGY CONSULTATION ---
DATE OF CONSULTATION: 07/13/2016 ATTENDING OF RECORD: Dr. Rodriguez. REASON FOR CONSULTATION: ESRD. HISTORY OF PRESENT ILLNESS: This is a 71-year-old female who dialyzes at [facility] on Tuesdays, , and Saturdays, who has underlying COPD and continues to actively smoke. The patient also has history of type 2 diabetes, hypertension and paroxysmal AFib, who was doing well with last dialysis treatment on Tuesday. She has been getting down to her dry weight. She has been wearing oxygen chronically for the last several weeks, who woke up this morning with significant shortness of breath. The patient also was complaining about significant itching for the last several weeks too of unclear etiology. The patient went to the dialysis unit; however, at Dialysis unit, she states that she needs to go to the Emergency Room. EMT took her to the Emergency Room and the patient was since admitted. The patient was started on antibiotics for possible pneumonia and is undergoing dialysis now with the use of albumin to help maximize fluid removal in hopes that her breathing improves. REVIEW OF SYSTEMS: No fevers or chills. No headaches, no blurry vision, and no dysphagia. Positive shortness of breath. No chest pain. No nausea or vomiting. No diarrhea or constipation. Positive pruritus. Positive smoker's cough. All other review of systems otherwise negative. PAST MEDICAL HISTORY: Paroxysmal AFib, history of adrenal adenoma, COPD, end-stage renal disease, type 2 diabetes, hyperlipidemia, hypertension, and osteoarthritis. PAST SURGICAL HISTORY: Cataract surgery, appendectomy, cholecystectomy, left oophorectomy, hysterectomy and fistula placement. FAMILY HISTORY: Significant for diabetes and heart disease. SOCIAL HISTORY: Active smoker, a pack per day x55 years. No alcohol and no drugs. CURRENT MEDICATIONS: Norvasc 10 mg a day, clonidine 0.1 mg daily, Lasix 40 mg daily, Lantus 26 units daily, Cozaar 100 mg daily, Protonix 40 mg daily, Lopressor 37.5 mg p.o. b.i.d., Coumadin 5 mg daily, heparin 5000 units subQ q. 8 hours, and Levaquin 500 mg q. 48 hours. PHYSICAL EXAMINATION: VITAL SIGNS: Temperature 36.4, blood pressure 173/82, pulse 67, respiratory rate 12, and satting 93% on 2-1/2 liters. GENERAL: Awake, alert, and oriented x3, looks tired. EYES: No scleral icterus. ENT: Moist mucous membranes. NECK: Supple. PULMONARY: Basilar rales with decreased air movement and end expiratory wheeze. CARDIAC: Regular rate and rhythm. ABDOMEN: Bowel sounds positive, soft and nontender. EXTREMITIES: No significant clubbing or cyanosis. Positive mild edema. NEUROLOGICALLY: Nonfocal. DERMATOLOGIC: No rash or ulcers noted. LABORATORY DATA: White count 6, H\T\H 10 and 31, and platelet count is 153. Sodium level is 140, potassium is 5, chloride is 99, bicarbonate is 28, BUN 70, creatinine is 10, glucose 174, and calcium is 8.8. ProBNP 9477. Albumin is 3.8. INR is 1. Chest x-ray shows bibasilar interstitial infiltrative changes. ASSESSMENT AND PLAN: 1. End-stage renal disease: We will plan on dialysis today on a 2K bath with the use of albumin to help maximize fluid removal. The patient has had about 2 liters off so far; however, beginning to cramp. We will reevaluate tomorrow to see if she would benefit from daily dialysis. 2. Anemia of end-stage renal disease. Hemoglobin level is 10 on Mircera as an outpatient. To redose Procrit today to keep the hemoglobin levels between 10 and 11. 3. Renal osteodystrophy. We will inquire about dose of phosphate binders and restart the phosphate binders with meals here to continue to help control phosphorus levels. I appreciate the consultation. OSEAS
[2016-07-13] MEDS ORDERED: WARFARIN SOD 5 MG TAB PO SCH (16:00)
[2016-07-13] MEDS: SEVELAMER HYDROCH 800 MG TAB PO SCH (17:10)
[2016-07-13] MEDS ORDERED: FLUTICASONE/SALMETEROL 250/50 (ADVAIR) 14 PUFF/1 INHALER INH SCH (20:00)
[2016-07-13] MEDS: DIPHENOXYLATE/ATROPINE 2.5/0.025MG TAB PO SCH (21:32)
[2016-07-13] MEDS: METOPROLOL TARTRATE 25 MG TAB PO SCH (21:33)
[2016-07-14] VITALS (7 sets, daily range): BP systolic 130–176; BP diastolic 70–76; PULSE 57–64; TEMP 36.4–36.9; O2SAT 92–99
[2016-07-14] MEDS: ALBUTEROL HFA 8 GM INHALER INH SCH ×5 (04:00→19:23)
[2016-07-14] MEDS: HEPARIN SOD 5000 UNIT/0.5 ML CARP SQ SCH ×4 (05:55→21:12)
[2016-07-14 06:32] LABS: HEMATOCRIT 31.1 % (37-47); MEAN CELL VOLUME 101.3 fL (80-100); MEAN CORPUSCULAR HEMOGLOBIN 31.6 pg (25-34); MEAN CORPUSCULAR HGB CONC 31.2 g/dl (32-36); MEAN PLATELET VOLUME 9.8 fL (7.4-10.4); PLATELET COUNT 153 K/uL (130-400); RED BLOOD COUNT 3.07 M/uL (4.2-5.4)
[2016-07-14 06:42] LABS: PROTHROMBIN TIME (PATIENT) 10.8 SECONDS (9.0-12.0)
--- NOTE | 2016-07-14 06:53 | Clinical Documentation Query ---
[facility]ICAL [facility] QUERY Patient a 71 year old female presenting for evaluation and treatment of SOB in the setting of volume overload associated with ESRD and bibasilar infiltrates. Nephrology has been consulted for hemodialysis and associated fluid removal. Additional PMH includes chronic diastolic CHF and hypertension. In your clinical opinion is this patient being managed for: ( ) Acute on chronic diastolic CHF in the setting of volume overload associated with ESRD and missed dialysis (+ ) Other explanation of clinical findings (Please Explain) ( ) Unable to determine (Please Define) ( ) Need to Discuss ( ) Not Agree May have associated COPD exacerbation The medical record reflects the following clinical findings, treatment, and risk factors. Clinical Indicators: Volume overload in the setting of ESRD, chronic diastolic CHF, hypertension, SOB Treatment: Hemodialysis per nephrology, supplemental O2 Risk Factors: Chronic diastolic CHF, hypertension, ESRD Please clarify and document your clinical opinion in the progress notes and discharge summary. Terms such as "probable", "suspected", "likely", "questionable", "possible", or "still to be ruled out" are acceptable. IF IN AGREEMENT, YOU MUST DOCUMENT ABOVE DIAGNOSTIC STATEMENT IN DAILY PROGRESS NOTES AND DISCHARGE SUMMARY. This document is not part of the patient's record. Thank You, Alok Rosas, RN [phone]
--- NOTE | 2016-07-14 06:54 | Clinical Documentation Query ---
Dr. FERNANDEZ [facility] : CLINICAL DOCUMENTATION QUERY Patient a 71 year old female presenting for evaluation and treatment of SOB in the setting of volume overload associated with ESRD and bibasilar infiltrates. Nephrology has been consulted for hemodialysis and associated fluid removal. Additional PMH includes chronic diastolic CHF and hypertension. . In your clinical opinion is this patient being managed for: ( x ) Acute on chronic diastolic CHF in the setting of volume overload associated with ESRD and missed dialysis ( ) Other explanation of clinical findings (Please Explain) ( ) Unable to determine (Please Define) ( ) Need to Discuss ( ) Not Agree The medical record reflects the following clinical findings, treatment, and risk factors. Clinical Indicators: Volume overload in the setting of ESRD, chronic diastolic CHF, hypertension, SOB Treatment: Hemodialysis per nephrology, supplemental O2 Risk Factors: Chronic diastolic CHF, hypertension, ESRD Please clarify and document your clinical opinion in the progress notes and discharge summary. Terms such as "probable", "suspected", "likely", "questionable", "possible", or "still to be ruled out" are acceptable. IF IN AGREEMENT, YOU MUST DOCUMENT ABOVE DIAGNOSTIC STATEMENT IN DAILY PROGRESS NOTES AND DISCHARGE SUMMARY. This document is not part of the patient's record. Thank You, Alok Rosas, RN [phone]
[2016-07-14 07:53] LABS: BUN/CREATININE RATIO 5.8 (10-20); CALCIUM 8.4 mg/dl (8.5-10.1); CREATININE 8.2 mg/dl (0.60-1.20); POTASSIUM 4.9 mmol/L (3.5-5.1)
[2016-07-14] MEDS: PrednisoLONE ACET 1% OP SUSP 5 ML BTL OPL SCH (08:32)
[2016-07-14] MEDS: SEVELAMER HYDROCH 800 MG TAB PO SCH ×3 (08:33→17:24)
[2016-07-14] MEDS: METOPROLOL TARTRATE 25 MG TAB PO SCH ×2 (08:33→19:24)
[2016-07-14] MEDS: PANTOprazole SOD 40 MG TAB PO SCH (08:34)
[2016-07-14] MEDS: AMLODIPINE BESYLATE 5 MG TAB PO SCH (08:34)
[2016-07-14] MEDS: CLONIDINE HCL 0.1 MG TAB PO SCH (08:35)
[2016-07-14] MEDS: LOSARTAN POTASSIUM 50 MG TAB PO SCH (08:35)
[2016-07-14] MEDS: DIPHENOXYLATE/ATROPINE 2.5/0.025MG TAB PO SCH ×2 (08:36→19:23)
[2016-07-14] MEDS: FUROSEMIDE 40 MG TAB PO SCH (08:36)
[2016-07-14] MEDS: INSULIN GLARGINE SOLOSTAR 100 UNITS/ML 3 ML PEN SC SCH (08:38)
--- NOTE | 2016-07-14 09:20 | Nephrology Progress Note ---
Nephrology Progress Note Date of Service: Jul 14, 2016. Subjective Patient is a 71-year-old female with ESRD who dialyzes on here with COPD and CHF exacerbation on hemodialysis. Patient had dialysis yesterday. states that she is breathing better and doing well on O2. appetite good per patient. does not feel as SOB as yesterday and would like to hold off on dialysis until tomorrow. on Antibiotics and has been receiving breathing treatments. no chest pain, nausea, or recent cramping. edema improved. Objective Date Time Temp Pulse Resp B/P Pulse Ox O2 Delivery O2 Flow Rate FiO2 07/14/16 07:07 36.9 64 18 176/76 95 4.0 07/14/16 00:00 92 Nasal Cannula 4.0 07/13/16 23:07 36.9 72 20 177/77 95 Nasal Cannula 3.0 07/13/16 21:30 76 181/77 07/13/16 19:30 Nasal Cannula 4.0 07/13/16 16:51 36.7 68 20 157/78 96 Nasal Cannula 4.0 07/13/16 16:44 Nasal Cannula 4.5 07/13/16 16:15 36.7 68 173/88 07/13/16 16:14 68 173/88 07/13/16 16:00 69 170/82 07/13/16 15:45 68 171/76 07/13/16 15:30 67 174/74 07/13/16 15:15 67 168/78 07/13/16 15:00 72 150/79 07/13/16 14:45 67 173/82 07/13/16 14:30 68 157/69 07/13/16 14:15 66 166/76 07/13/16 14:00 66 154/80 07/13/16 13:45 67 158/60 07/13/16 13:30 67 152/69 07/13/16 13:15 67 177/73 07/13/16 13:13 65 164/70 07/13/16 13:05 36.6 70 203/91 07/13/16 12:39 89 24 92 Nasal Cannula 4.0 07/13/16 10:49 175/80 07/13/16 10:29 Nasal Cannula 2.5 07/13/16 10:28 36.4 65 18 181/69 93 Nasal Cannula 2.5 07/13/16 09:31 65 16 156/88 94 Nasal Cannula 2.0 07/13/16 09:08 97 Room Air Physical Exam: General: Alert, no distress, well nourished and well developed Head: Normocephalic, No masses, lesions, tenderness, or abnormalities ENT: no scleral icterus, moist mucosal membranes Neck: Supple, no adenopathy Heart: Regular rate and rhythm, no murmurs, no gallops Lungs: bibasilar rales with decreased air movement. wheezing improved-on 4L O2 Abdomen: Soft, Nontender, nondistended, +Bowel Sounds Extremities: No joint deformities, effusion, or inflammation, +mild edema b/l le Neuro Exam: Alert and oriented x 3 with fluent speech, no focal motor/sensory deficits Current Inpatient Medications Medications (Trade) Dose Ordered Sig/Joan Route Start Time Stop Time Status Last Admin Dose Admin Heparin Sodium (Porcine) (Heparin Sq 5000 Unit/0.5ml) 5,000 unit Q8H SQ 07/13/16 14:00 08/12/16 09:44 07/14/16 05:55 5,000 UNIT Albuterol (Ventolin Hfa Inhaler) 1 puffs Q4 INH 07/13/16 12:00 08/12/16 11:59 07/14/16 08:32 1 PUFFS Amlodipine Besylate (Norvasc Tab) 10 mg QAM PO 07/14/16 08:00 08/13/16 07:59 07/14/16 08:34 10 MG Clonidine HCl (Catapres Tab) 0.1 mg DAILY PO 07/14/16 08:00 08/13/16 07:59 07/14/16 08:35 0.1 MG Diphenoxylate HCl/ Atropine (Lomotil Tab) 1 tab BID PO 07/13/16 20:00 08/12/16 20:59 07/14/16 08:36 1 TAB Furosemide (Lasix Tab) 40 mg DAILY PO 07/14/16 08:00 08/13/16 08:59 07/14/16 08:36 40 MG Insulin Glargine (Lantus Solostar Pen) 26 unit QAM SC 07/14/16 08:00 08/13/16 08:59 07/14/16 08:38 26 UNIT Albuterol/ Ipratropium (Duoneb) 3 ml QID PRN INH 07/13/16 09:45 08/12/16 09:44 Lidocaine/ Prilocaine (Emla 2.5% Crm) 1 ea TuThSa@0900 EXT 07/13/16 10:00 08/12/16 09:59 07/13/16 12:51 1 EA Losartan Potassium (coZAAR TAB) 100 mg QAM PO 07/14/16 08:00 08/13/16 08:59 07/14/16 08:35 100 MG Metoprolol Tartrate (Lopressor Tab) 37.5 mg BID PO 07/13/16 20:00 08/12/16 20:59 07/14/16 08:33 37.5 MG Ondansetron HCl (Zofran Tab) 8 mg Q8 PRN PO 07/13/16 09:45 08/12/16 09:44 Pantoprazole Sodium (Protonix Tab) 40 mg DAILY PO 07/14/16 08:00 08/13/16 08:59 07/14/16 08:34 40 MG Prednisolone Acetate (Pred Forte 1% Oph Susp) 1 drops QAM OPL 07/14/16 08:00 08/13/16 08:59 07/14/16 08:32 1 DROPS Levofloxacin (Levaquin Tab) 500 mg Q48H PO 07/13/16 11:00 07/20/16 10:59 07/13/16 12:00 500 MG Sevelamer HCl (Renagel Tab) 800 mg TIDM PO 07/13/16 17:00 08/12/16 16:59 07/14/16 08:33 800 MG Last 24 Hours Test 07/13/16 11:11 07/13/16 16:43 07/13/16 19:51 07/14/16 06:07 Bedside Glucose 128 mg/dl 96 mg/dl 188 mg/dl White Blood Count 4.90 K/uL Red Blood Count 3.07 M/uL Hemoglobin 9.7 g/dL Hematocrit 31.1 % Mean Corpuscular Volume 101.3 fL Mean Corpuscular Hemoglobin 31.6 pg Mean Corpuscular Hemoglobin Concent 31.2 g/dl RDW Standard Deviation 74.4 fL RDW Coefficient of Variation 19.9 % Platelet Count 153 K/uL Mean Platelet Volume 9.8 fL Prothrombin Time 10.8 SECONDS Prothromb Time International Ratio 1.0 Sodium Level 138 mmol/L Potassium Level 4.9 mmol/L Chloride Level 101 mmol/L Carbon Dioxide Level 25 mmol/L Anion Gap 12.0 mmol/L Blood Urea Nitrogen 48 mg/dl Creatinine 8.20 mg/dl Est Creatinine Clear Calc Drug Dose 7.3 ml/min Estimated GFR () 5.2 Estimated GFR (Non- 4.5 BUN/Creatinine Ratio 5.8 Random Glucose 123 mg/dl Calcium Level 8.4 mg/dl Test 07/14/16 07:15 Bedside Glucose 123 mg/dl Assessment & Plan ESRD: Plan to dialyze tomorrow and on schedule or as clinical condition dictates. patient states that breathing is better and volume status improved per patient. will continue to monitor closely. will plan on a 2k bath with albumin to help maximize fluid removal. also will plan on procrit prn for anemia. potassium adequate. Do not believe that SOB is solely due to ESRD. Defer to primary hospitalist but would consider steroids in conjunction with therapy. Anemia: hgb stable at 9.7. will continue to give procrit prn with dialysis for improvement of anemia of ESRD. goal to keep hgb between 10-11. 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 to continue with meals and will monitor phos levels intermittently during hospital stay. This patient was seen and treated with direct collaboration with Dr. Tijerina. Thank you for the opportunity to participate in this patient's care. Appreciate the Consult. ATTENDING NOTE: I performed a history and physical examination of the patient, including specifically on history- patient more comfortable, breathing easier, on physical exam-basilar rales, and my impression and plan are ESRD-plan for dialysis tomorrow and continue current therapy to help optimize lungs. consider the addition of prednisone however respectfully defer to primary hospitalist. I have discussed the patient's management with Dee Dee Henley PA-C, Please refer to above note for the documented findings and plan of care. Ángel Tijerina DO
--- NOTE | 2016-07-14 11:34 | Progress Note ---
Internal Med Progress Note Date of Service: Jul 14, 2016. Provider Documentation: SUBJECTIVE: The patient was seen and examined Feels better today Has minimal wheezing Denies any SOB OBJECTIVE: Vital Signs-as noted below Exam: General-no distress at rest Eyes-normal ENT-normal Neck-Supple Lungs-Decreased breath sound bilaterally Minimal wheezing bilaterally Heart-Regular,no murmur appreciated Abdomen-Benign,no masses,bowel sound present Extremities-Trace edema bilaterally Neuro-AAOX3 Lab data as noted below. ASSESSMENT & PLAN: WORSENING SOB; POSSIBLE PNEUMONIA VS. FLUID OVERLOAD/COPD EXACERBATION -pt presents with worsening SOB assoc with generalized weakness and cough -CXR bibasilar infiltrates -start Levaquin and duonebs -cont supplemental O2 -Continue with Dialysis ESRD ON HD -HD [id number]; pt did not have dialysis this morning -K+ 5.0 -consult nephro-appreciate input MODERATE COPD WITH ONGOING TOBACCO USE-Mild Exacerbation -uses O2 2.5L HS and PRN during the day -cont inhalers -will start small dose of Prednisone -pt education regarding importance of smoking cessation PAROXYSMAL AFIB -EKG: NSR -Coumadin discontinued in May due to GI bleed -cont metoprolol -monitor CHRONIC ANEMIA -HgB 10.0 (stable) -continue to monitor HgB daily -pt denies active bleed INSULIN-DEPENDENT DM 2 -recent A1C 4.9 -cont Lantus -start ISS -monitor BSG AC HS HTN -BP stable -cont amlodipine, clonidine, losartan and metoprolol -monitor DVT PROPHYLAXIS -not on Coumadin due to GI bleed -subq heparin CODE STATUS -FULL CODE per discussion with patient upon admission DISPO Likely home in a day or two Vital Signs: Date Time Temp Pulse Resp B/P Pulse Ox O2 Delivery O2 Flow Rate FiO2 07/14/16 07:07 36.9 64 18 176/76 95 4.0 07/14/16 00:00 92 Nasal Cannula 4.0 07/13/16 23:07 36.9 72 20 177/77 95 Nasal Cannula 3.0 07/13/16 21:30 76 181/77 07/13/16 19:30 Nasal Cannula 4.0 07/13/16 16:51 36.7 68 20 157/78 96 Nasal Cannula 4.0 07/13/16 16:44 Nasal Cannula 4.5 07/13/16 16:15 36.7 68 173/88 07/13/16 16:14 68 173/88 07/13/16 16:00 69 170/82 07/13/16 15:45 68 171/76 07/13/16 15:30 67 174/74 07/13/16 15:15 67 168/78 07/13/16 15:00 72 150/79 07/13/16 14:45 67 173/82 07/13/16 14:30 68 157/69 07/13/16 14:15 66 166/76 07/13/16 14:00 66 154/80 07/13/16 13:45 67 158/60 07/13/16 13:30 67 152/69 07/13/16 13:15 67 177/73 07/13/16 13:13 65 164/70 07/13/16 13:05 36.6 70 203/91 07/13/16 12:39 89 24 92 Nasal Cannula 4.0 Lab Results: Results Past 24 Hours Test 07/13/16 16:43 07/13/16 19:51 07/14/16 06:07 07/14/16 07:15 Range/Units Bedside Glucose 96 188 123 70-90 mg/dl White Blood Count 4.90 4.8-10.8 K/uL Red Blood Count 3.07 4.2-5.4 M/uL Hemoglobin 9.7 12.0-16.0 g/dL Hematocrit 31.1 37-47 % Mean Corpuscular Volume 101.3 80-100 fL Mean Corpuscular Hemoglobin 31.6 25-34 pg Mean Corpuscular Hemoglobin Concent 31.2 32-36 g/dl RDW Standard Deviation 74.4 36.4-46.3 fL RDW Coefficient of Variation 19.9 11.5-14.5 % Platelet Count 153 130-400 K/uL Mean Platelet Volume 9.8 7.4-10.4 fL Prothrombin Time 10.8 9.0-12.0 SECONDS Prothromb Time International Ratio 1.0 0.9-1.1 Sodium Level 138 136-145 mmol/L Potassium Level 4.9 3.5-5.1 mmol/L Chloride Level 101 98-107 mmol/L Carbon Dioxide Level 25 21-32 mmol/L Anion Gap 12.0 3-11 mmol/L Blood Urea Nitrogen 48 7-18 mg/dl Creatinine 8.20 0.60-1.20 mg/dl Est Creatinine Clear Calc Drug Dose 7.3 ml/min Estimated GFR () 5.2 Estimated GFR (Non- 4.5 BUN/Creatinine Ratio 5.8 10-20 Random Glucose 123 70-99 mg/dl Calcium Level 8.4 8.5-10.1 mg/dl
[2016-07-14] MEDS ORDERED: WARFARIN SOD 5 MG TAB PO SCH (16:00)
[2016-07-15] VITALS (19 sets, daily range): BP systolic 122–136; BP diastolic 51–75; PULSE 52–62; TEMP 36.4–36.7; O2SAT 95–99; Ht 167.6 cm; Wt 89.0 kg
[2016-07-15] MEDS: ALBUTEROL HFA 8 GM INHALER INH SCH ×6 (00:18→20:38)
[2016-07-15] MEDS: HEPARIN SOD 5000 UNIT/0.5 ML CARP SQ SCH ×3 (05:51→22:10)
[2016-07-15] MEDS: SEVELAMER HYDROCH 800 MG TAB PO SCH ×3 (07:57→17:37)
[2016-07-15] MEDS ORDERED: EPOETIN ALFA 10,000 UNITS/ML VIAL IV. ONE (08:00)
[2016-07-15] MEDS: INSULIN GLARGINE SOLOSTAR 100 UNITS/ML 3 ML PEN SC SCH (10:35)
[2016-07-15] MEDS: PANTOprazole SOD 40 MG TAB PO SCH (10:47)
[2016-07-15] MEDS: AMLODIPINE BESYLATE 5 MG TAB PO SCH (10:47)
[2016-07-15] MEDS: LEVOFLOXACIN 500 MG TAB PO SCH (10:47)
[2016-07-15] MEDS: METOPROLOL TARTRATE 25 MG TAB PO SCH ×2 (10:48→20:00)
[2016-07-15] MEDS: CLONIDINE HCL 0.1 MG TAB PO SCH (10:49)
[2016-07-15] MEDS: FUROSEMIDE 40 MG TAB PO SCH (10:49)
[2016-07-15] MEDS: DIPHENOXYLATE/ATROPINE 2.5/0.025MG TAB PO SCH ×2 (10:50→20:38)
[2016-07-15] MEDS: PrednisoLONE ACET 1% OP SUSP 5 ML BTL OPL SCH (10:51)
[2016-07-15] MEDS: LOSARTAN POTASSIUM 50 MG TAB PO SCH (10:51)
--- NOTE | 2016-07-15 14:09 | Nephrology Progress Note ---
Nephrology Progress Note Date of Service: Jul 15, 2016. Subjective Patient is a 71-year-old female with ESRD who dialyzes on here with COPD and CHF exacerbation on hemodialysis. Patient tolerated dialysis well today. no cramping. Patient denies any additional SOB but continues to need 4L O2. appetite remains good per patient. continues to receive Antibiotics and breathing treatments. no chest pain or nausea. edema improved. Objective Date Time Temp Pulse Resp B/P Pulse Ox O2 Delivery O2 Flow Rate FiO2 07/15/16 10:45 95 Nasal Cannula 4.0 07/15/16 10:24 36.7 60 136/65 07/15/16 10:00 62 132/51 07/15/16 09:45 57 133/58 07/15/16 09:30 57 125/55 07/15/16 09:15 59 135/60 07/15/16 09:00 61 132/58 07/15/16 08:45 60 122/55 07/15/16 08:30 56 132/57 07/15/16 08:15 56 129/60 07/15/16 08:00 57 134/55 07/15/16 07:45 56 130/58 07/15/16 07:30 55 127/62 07/15/16 07:15 57 132/66 07/15/16 07:00 56 128/65 07/15/16 06:45 36.4 58 132/75 07/15/16 00:00 99 Nasal Cannula 4.0 07/14/16 23:56 36.4 57 18 160/73 98 4.0 07/14/16 20:00 99 Nasal Cannula 4.0 07/14/16 19:21 62 20 159/70 99 Nasal Cannula 4.0 07/14/16 15:46 Nasal Cannula 4.0 07/14/16 14:53 36.9 58 18 130/70 98 Nasal Cannula 3.0 Physical Exam: General: Alert, no distress, well nourished and well developed Head: Normocephalic, No masses, lesions, tenderness, or abnormalities ENT: no scleral icterus, moist mucosal membranes Neck: Supple, no adenopathy Heart: Regular rate and rhythm, no murmurs, no gallops Lungs: bibasilar rales with decreased air movement. wheezing improved-on 4L O2 Abdomen: Soft, Nontender, nondistended, +Bowel Sounds Extremities: No joint deformities, effusion, or inflammation, +mild edema b/l le Neuro Exam: Alert and oriented x 3 with fluent speech, no focal motor/sensory deficits Current Inpatient Medications Medications (Trade) Dose Ordered Sig/Joan Route Start Time Stop Time Status Last Admin Dose Admin Heparin Sodium (Porcine) (Heparin Sq 5000 Unit/0.5ml) 5,000 unit Q8H SQ 07/13/16 14:00 08/12/16 09:44 07/15/16 05:51 5,000 UNIT Albuterol (Ventolin Hfa Inhaler) 1 puffs Q4 INH 07/13/16 12:00 08/12/16 11:59 07/15/16 10:52 1 PUFFS Amlodipine Besylate (Norvasc Tab) 10 mg QAM PO 07/14/16 08:00 08/13/16 07:59 07/15/16 10:47 10 MG Clonidine HCl (Catapres Tab) 0.1 mg DAILY PO 07/14/16 08:00 08/13/16 07:59 07/15/16 10:49 0.1 MG Diphenoxylate HCl/ Atropine (Lomotil Tab) 1 tab BID PO 07/13/16 20:00 08/12/16 20:59 07/14/16 19:23 1 TAB Furosemide (Lasix Tab) 40 mg DAILY PO 07/14/16 08:00 08/13/16 08:59 07/15/16 10:49 40 MG Insulin Glargine (Lantus Solostar Pen) 26 unit QAM SC 07/14/16 08:00 08/13/16 08:59 07/15/16 10:35 26 UNIT Albuterol/ Ipratropium (Duoneb) 3 ml QID PRN INH 07/13/16 09:45 08/12/16 09:44 Lidocaine/ Prilocaine (Emla 2.5% Crm) 1 ea TuThSa@0900 EXT 07/13/16 10:00 08/12/16 09:59 07/13/16 12:51 1 EA Losartan Potassium (coZAAR TAB) 100 mg QAM PO 07/14/16 08:00 08/13/16 08:59 07/15/16 10:51 100 MG Metoprolol Tartrate (Lopressor Tab) 37.5 mg BID PO 07/13/16 20:00 08/12/16 20:59 07/15/16 10:48 37.5 MG Ondansetron HCl (Zofran Tab) 8 mg Q8 PRN PO 07/13/16 09:45 08/12/16 09:44 Pantoprazole Sodium (Protonix Tab) 40 mg DAILY PO 07/14/16 08:00 08/13/16 08:59 07/15/16 10:47 40 MG Prednisolone Acetate (Pred Forte 1% Oph Susp) 1 drops QAM OPL 07/14/16 08:00 08/13/16 08:59 07/15/16 10:51 1 DROPS Levofloxacin (Levaquin Tab) 500 mg Q48H PO 07/13/16 11:00 07/20/16 10:59 07/15/16 10:47 500 MG Sevelamer HCl (Renagel Tab) 800 mg TIDM PO 07/13/16 17:00 08/12/16 16:59 07/15/16 10:48 800 MG Prednisone (PredniSONE TAB) 40 mg DAILY PO 07/15/16 08:00 08/14/16 07:59 07/15/16 10:50 40 MG Last 24 Hours Test 07/14/16 16:31 07/14/16 20:07 07/14/16 22:06 07/15/16 09:00 Bedside Glucose 173 mg/dl 365 mg/dl 282 mg/dl Hepatitis B Surface Antigen NEG Test 07/15/16 09:06 07/15/16 11:57 Bedside Glucose 115 mg/dl 198 mg/dl Assessment & Plan ESRD: Patient tolerated dialysis well today. rechecking renal labs tomorrow am. Patient is not uremic and volume status ok. concerned that due to limited lung reserve patient may decompensate again if discharged and would recommend waiting for further improvement of pneumonia and volume status. Defer to primary hospitalist. will continue to dialyze on schedule or as clinical condition dictates. procrit prn for anemia. potassium adequate. Anemia: hgb stable at 9.7. will continue to give procrit prn with dialysis for improvement of anemia of ESRD. goal to keep hgb between 10-11. CKD-MBD: To continue phosphate binders with meals and will monitor phos levels intermittently during hospital stay. This patient was seen and treated with direct collaboration with Dr. Tijerina. Thank you for the opportunity to participate in this patient's care. Appreciate the Consult. ATTENDING NOTE: I performed a history and physical examination of the patient, including specifically on history- pt continues to be tired and has decreased breath sounds at bases. tolerated dialysis well but did have some cramping on the right arm today, on physical exam-decreased at bases, and my impression and plan are ESRD-had dialysis today and will re-evaluate tomorrow for possible discharge. pt breathing better. I have discussed the patient's management with Dee Dee Henley PA-C, Please refer to above note for the documented findings and plan of care. Ángel Tijerina DO
--- NOTE | 2016-07-15 15:33 | Progress Note ---
Internal Med Progress Note Date of Service: Jul 15, 2016. Provider Documentation: SUBJECTIVE: The patient was seen and examined Has minimal wheezing Denies any SOB Not yet ready to be discharged Has had dialysis early this morning due to more SOB last night OBJECTIVE: Vital Signs-as noted below Exam: General-no distress at rest Eyes-normal ENT-normal Neck-Supple Lungs-Decreased breath sound bilaterally Minimal wheezing bilaterally Heart-Regular,no murmur appreciated Abdomen-Benign,no masses,bowel sound present Extremities-Trace edema bilaterally Neuro-AAOX3 Lab data as noted below. ASSESSMENT & PLAN: WORSENING SOB; POSSIBLE PNEUMONIA VS. FLUID OVERLOAD/COPD EXACERBATION -pt presents with worsening SOB assoc with generalized weakness and cough -CXR bibasilar infiltrates -start Levaquin and duonebs -cont supplemental O2 -Continue with Dialysis ESRD ON HD -HD Eyrp-Bcqbz-Pkn; pt did not have dialysis this morning -K+ 5.0 -consult nephro-appreciate input MODERATE COPD WITH ONGOING TOBACCO USE-Mild Exacerbation -uses O2 2.5L HS and PRN during the day -cont inhalers -will start small dose of Prednisone -pt education regarding importance of smoking cessation -clinically better today -not yet ready to be discharged PAROXYSMAL AFIB -EKG: NSR -Coumadin discontinued in May due to GI bleed -cont metoprolol -patient is not willing to restart CHRONIC ANEMIA -HgB 10.0 (stable) -continue to monitor HgB daily -pt denies active bleed INSULIN-DEPENDENT DM 2 -recent A1C 4.9 -cont Lantus -start ISS -monitor BSG AC HS HTN -BP stable -cont amlodipine, clonidine, losartan and metoprolol -monitor DVT PROPHYLAXIS -not on Coumadin due to GI bleed -subq heparin CODE STATUS -FULL CODE per discussion with patient upon admission DISPO Likely home in a day or two Vital Signs: Date Time Temp Pulse Resp B/P Pulse Ox O2 Delivery O2 Flow Rate FiO2 07/15/16 10:45 95 Nasal Cannula 4.0 07/15/16 10:24 36.7 60 136/65 07/15/16 10:00 62 132/51 07/15/16 09:45 57 133/58 07/15/16 09:30 57 125/55 07/15/16 09:15 59 135/60 07/15/16 09:00 61 132/58 07/15/16 08:45 60 122/55 07/15/16 08:30 56 132/57 07/15/16 08:15 56 129/60 07/15/16 08:00 57 134/55 07/15/16 07:45 56 130/58 07/15/16 07:30 55 127/62 07/15/16 07:15 57 132/66 07/15/16 07:00 56 128/65 07/15/16 06:45 36.4 58 132/75 07/15/16 00:00 99 Nasal Cannula 4.0 07/14/16 23:56 36.4 57 18 160/73 98 4.0 07/14/16 20:00 99 Nasal Cannula 4.0 07/14/16 19:21 62 20 159/70 99 Nasal Cannula 4.0 07/14/16 15:46 Nasal Cannula 4.0 Lab Results: Results Past 24 Hours Test 07/14/16 16:31 07/14/16 20:07 07/14/16 22:06 07/15/16 09:00 Range/Units Bedside Glucose 173 365 282 70-90 mg/dl Hepatitis B Surface Antigen NEG NEG Test 07/15/16 09:06 07/15/16 11:57 Range/Units Bedside Glucose 115 198 70-90 mg/dl
[2016-07-16 00:38] VITALS: BP 156/73; PULSE 55; TEMP 36.7; O2SAT 100
[2016-07-16 06:28] LABS: HEMATOCRIT 28.6 % (37-47); MEAN CORPUSCULAR HEMOGLOBIN 31.8 pg (25-34); MEAN CORPUSCULAR HGB CONC 31.8 g/dl (32-36); MEAN PLATELET VOLUME 9.8 fL (7.4-10.4); PLATELET COUNT 147 K/uL (130-400); RED BLOOD COUNT 2.86 M/uL (4.2-5.4); WHITE BLOOD COUNT 4.44 K/uL (4.8-10.8)
[2016-07-16] MEDS: HEPARIN SOD 5000 UNIT/0.5 ML CARP SQ SCH ×3 (06:31→21:34)
[2016-07-16] MEDS: ALBUTEROL HFA 8 GM INHALER INH SCH ×6 (06:32→19:33)
[2016-07-16] MEDS: LOSARTAN POTASSIUM 50 MG TAB PO SCH (07:51)
[2016-07-16] MEDS: CLONIDINE HCL 0.1 MG TAB PO SCH (07:51)
[2016-07-16] MEDS: AMLODIPINE BESYLATE 5 MG TAB PO SCH (07:51)
[2016-07-16] MEDS: DIPHENOXYLATE/ATROPINE 2.5/0.025MG TAB PO SCH ×2 (07:52→19:33)
[2016-07-16] MEDS: METOPROLOL TARTRATE 25 MG TAB PO SCH ×2 (07:52→19:34)
[2016-07-16] MEDS: FUROSEMIDE 40 MG TAB PO SCH (07:53)
[2016-07-16] MEDS: SEVELAMER HYDROCH 800 MG TAB PO SCH ×3 (07:53→17:03)
[2016-07-16] MEDS: PANTOprazole SOD 40 MG TAB PO SCH (07:53)
[2016-07-16] MEDS: PrednisoLONE ACET 1% OP SUSP 5 ML BTL OPL SCH (07:54)
[2016-07-16 07:57] VITALS: BP 136/67; PULSE 49; TEMP 36.4; O2SAT 100
[2016-07-16 08:00] LABS: BUN/CREATININE RATIO 6.8 (10-20); CALCIUM 8.2 mg/dl (8.5-10.1); CREATININE 8.2 mg/dl (0.60-1.20); MAGNESIUM 2.4 mg/dl (1.8-2.4); PHOSPHORUS 5.8 mg/dl (2.5-4.9); POTASSIUM 5.1 mmol/L (3.5-5.1)
[2016-07-16 08:08] VITALS: PULSE 52
[2016-07-16] MEDS: INSULIN GLARGINE SOLOSTAR 100 UNITS/ML 3 ML PEN SC SCH (09:20)
--- NOTE | 2016-07-16 13:05 | Progress Note ---
Internal Med Progress Note Date of Service: Jul 16, 2016. Provider Documentation: SUBJECTIVE: The patient was seen and examined Has minimal wheezing Denies any SOB Much better today OBJECTIVE: Vital Signs-as noted below Exam: General-no distress at rest Eyes-normal ENT-normal Neck-Supple Lungs-Decreased breath sound bilaterally Minimal wheezing bilaterally and no crackles Heart-Regular,no murmur appreciated Abdomen-Benign,no masses,bowel sound present Extremities-Trace edema bilaterally Neuro-AAOX3 Lab data as noted below. ASSESSMENT & PLAN: WORSENING SOB; POSSIBLE PNEUMONIA VS. FLUID OVERLOAD/COPD EXACERBATION -pt presents with worsening SOB assoc with generalized weakness and cough -CXR bibasilar infiltrates -start Levaquin and duonebs -cont supplemental O2 -Continue with Dialysis -likely to go home after dialysis tomorrow ESRD ON HD -HD Qsxc-Xdopv-Abu; pt did not have dialysis this morning -K+ 5.0 -consult nephro-appreciate input MODERATE COPD WITH ONGOING TOBACCO USE-Mild Exacerbation -uses O2 2.5L HS and PRN during the day -cont inhalers -will start small dose of Prednisone -pt education regarding importance of smoking cessation -clinically better today -no symptoms at rest Likely home tomorrow after dialysis PAROXYSMAL AFIB -EKG: NSR -Coumadin discontinued in May due to GI bleed -cont metoprolol -patient is not willing to restart -rate controlled CHRONIC ANEMIA -HgB 10.0 (stable) -continue to monitor HgB daily >9.0 -pt denies active bleed INSULIN-DEPENDENT DM 2 -recent A1C 4.9 -cont Lantus -start ISS -monitor BSG AC HS HTN -BP stable -cont amlodipine, clonidine, losartan and metoprolol -monitor DVT PROPHYLAXIS -not on Coumadin due to GI bleed -subq heparin CODE STATUS -FULL CODE per discussion with patient upon admission DISPO Likely home tomorrow after dialysis Vital Signs: Date Time Temp Pulse Resp B/P Pulse Ox O2 Delivery O2 Flow Rate FiO2 07/16/16 08:08 52 07/16/16 08:00 Nasal Cannula 07/16/16 07:57 36.4 49 16 136/67 100 Nasal Cannula 3.0 07/16/16 00:38 36.7 55 18 156/73 100 3.0 07/16/16 00:00 Nasal Cannula 3.0 07/15/16 22:11 52 4/20/17 16:00 Nasal Cannula 3.0 07/15/16 15:41 36.5 56 16 125/73 98 Nasal Cannula 3.0 Lab Results: Results Past 24 Hours Test 07/15/16 16:42 07/15/16 20:01 07/16/16 05:50 07/16/16 07:44 Range/Units Bedside Glucose 154 235 104 70-90 mg/dl White Blood Count 4.44 4.8-10.8 K/uL Red Blood Count 2.86 4.2-5.4 M/uL Hemoglobin 9.1 12.0-16.0 g/dL Hematocrit 28.6 37-47 % Mean Corpuscular Volume 100.0 80-100 fL Mean Corpuscular Hemoglobin 31.8 25-34 pg Mean Corpuscular Hemoglobin Concent 31.8 32-36 g/dl RDW Standard Deviation 69.9 36.4-46.3 fL RDW Coefficient of Variation 19.1 11.5-14.5 % Platelet Count 147 130-400 K/uL Mean Platelet Volume 9.8 7.4-10.4 fL Sodium Level 137 136-145 mmol/L Potassium Level 5.1 3.5-5.1 mmol/L Chloride Level 101 98-107 mmol/L Carbon Dioxide Level 23 21-32 mmol/L Anion Gap 13.0 3-11 mmol/L Blood Urea Nitrogen 56 7-18 mg/dl Creatinine 8.20 0.60-1.20 mg/dl Est Creatinine Clear Calc Drug Dose 7.3 ml/min Estimated GFR () 5.2 Estimated GFR (Non- 4.5 BUN/Creatinine Ratio 6.8 10-20 Random Glucose 128 70-99 mg/dl Calcium Level 8.2 8.5-10.1 mg/dl Phosphorus Level 5.8 2.5-4.9 mg/dl Magnesium Level 2.4 1.8-2.4 mg/dl Albumin 3.3 3.4-5.0 gm/dl Test 07/16/16 11:35 Range/Units Bedside Glucose 110 70-90 mg/dl
--- NOTE | 2016-07-16 13:30 | Nephrology Progress Note ---
Nephrology Progress Note Date of Service: Jul 16, 2016. Subjective 71 yo female with esrd who presented with copd exacerbation/penumonia. responding well. had issues with bradycardia last night, pt asymptomatic. adjusted meds. pt comfortable and breathing much better. oob to chair. appetite is good. Objective Date Time Temp Pulse Resp B/P Pulse Ox O2 Delivery O2 Flow Rate FiO2 07/16/16 08:08 52 07/16/16 08:00 Nasal Cannula 07/16/16 07:57 36.4 49 16 136/67 100 Nasal Cannula 3.0 07/16/16 00:38 36.7 55 18 156/73 100 3.0 07/16/16 00:00 Nasal Cannula 3.0 07/15/16 22:11 52 07/15/16 16:00 Nasal Cannula 3.0 07/15/16 15:41 36.5 56 16 125/73 98 Nasal Cannula 3.0 Physical Exam: General-aaox3 Eyes-no scleral icterus ENT-mmm Neck-supple Lungs-cta Heart-roosevelt Abdomen-bs+ s/nt/nd Extremities-no c/c/e Neuro-nonfocal Current Inpatient Medications Medications (Trade) Dose Ordered Sig/Joan Route Start Time Stop Time Status Last Admin Dose Admin Heparin Sodium (Porcine) (Heparin Sq 5000 Unit/0.5ml) 5,000 unit Q8H SQ 07/13/16 14:00 08/12/16 09:44 07/16/16 06:31 5,000 UNIT Albuterol (Ventolin Hfa Inhaler) 1 puffs Q4 INH 07/13/16 12:00 08/12/16 11:59 07/16/16 12:02 1 PUFFS Amlodipine Besylate (Norvasc Tab) 10 mg QAM PO 07/14/16 08:00 08/13/16 07:59 07/16/16 07:51 10 MG Clonidine HCl (Catapres Tab) 0.1 mg DAILY PO 07/14/16 08:00 08/13/16 07:59 07/16/16 07:51 0.1 MG Diphenoxylate HCl/ Atropine (Lomotil Tab) 1 tab BID PO 07/13/16 20:00 08/12/16 20:59 07/15/16 20:38 1 TAB Furosemide (Lasix Tab) 40 mg DAILY PO 07/14/16 08:00 5/19/17 08:59 07/16/16 07:53 40 MG Insulin Glargine (Lantus Solostar Pen) 26 unit QAM SC 07/14/16 08:00 08/13/16 08:59 07/16/16 09:20 26 UNIT Albuterol/ Ipratropium (Duoneb) 3 ml QID PRN INH 07/13/16 09:45 08/12/16 09:44 Lidocaine/ Prilocaine (Emla 2.5% Crm) 1 ea TuThSa@0900 EXT 07/13/16 10:00 08/12/16 09:59 07/13/16 12:51 1 EA Losartan Potassium (coZAAR TAB) 100 mg QAM PO 07/14/16 08:00 08/13/16 08:59 07/16/16 07:51 100 MG Metoprolol Tartrate (Lopressor Tab) 37.5 mg BID PO 07/13/16 20:00 08/12/16 20:59 07/15/16 10:48 37.5 MG Ondansetron HCl (Zofran Tab) 8 mg Q8 PRN PO 07/13/16 09:45 08/12/16 09:44 Pantoprazole Sodium (Protonix Tab) 40 mg DAILY PO 07/14/16 08:00 08/13/16 08:59 07/16/16 07:53 40 MG Prednisolone Acetate (Pred Forte 1% Oph Susp) 1 drops QAM OPL 07/14/16 08:00 08/13/16 08:59 07/16/16 07:54 1 DROPS Levofloxacin (Levaquin Tab) 500 mg Q48H PO 07/13/16 11:00 07/20/16 10:59 07/15/16 10:47 500 MG Sevelamer HCl (Renagel Tab) 800 mg TIDM PO 07/13/16 17:00 08/12/16 16:59 07/16/16 12:02 800 MG Prednisone (PredniSONE TAB) 40 mg DAILY PO 07/15/16 08:00 08/14/16 07:59 07/16/16 07:53 40 MG Last 24 Hours Test 07/15/16 16:42 07/15/16 20:01 07/16/16 05:50 07/16/16 07:44 Bedside Glucose 154 mg/dl 235 mg/dl 104 mg/dl White Blood Count 4.44 K/uL Red Blood Count 2.86 M/uL Hemoglobin 9.1 g/dL Hematocrit 28.6 % Mean Corpuscular Volume 100.0 fL Mean Corpuscular Hemoglobin 31.8 pg Mean Corpuscular Hemoglobin Concent 31.8 g/dl RDW Standard Deviation 69.9 fL RDW Coefficient of Variation 19.1 % Platelet Count 147 K/uL Mean Platelet Volume 9.8 fL Sodium Level 137 mmol/L Potassium Level 5.1 mmol/L Chloride Level 101 mmol/L Carbon Dioxide Level 23 mmol/L Anion Gap 13.0 mmol/L Blood Urea Nitrogen 56 mg/dl Creatinine 8.20 mg/dl Est Creatinine Clear Calc Drug Dose 7.3 ml/min Estimated GFR () 5.2 Estimated GFR (Non- 4.5 BUN/Creatinine Ratio 6.8 Random Glucose 128 mg/dl Calcium Level 8.2 mg/dl Phosphorus Level 5.8 mg/dl Magnesium Level 2.4 mg/dl Albumin 3.3 gm/dl Test 07/16/16 11:35 Bedside Glucose 110 mg/dl Assessment & Plan ESRD: for dialysis again tomorrow. if pt continues to be stable, likely to go home after dialysis. Anemia of renal failure-continue procrit for goal hg of 10 to 11. riana-continue the renagel with meals.
[2016-07-16 15:47] VITALS: BP 127/68; PULSE 49; TEMP 36.8; O2SAT 100
[2016-07-16 22:32] VITALS: BP 151/68; PULSE 56; TEMP 36.6; O2SAT 100
[2016-07-17] VITALS (17 sets, daily range): BP systolic 121–150; BP diastolic 59–82; PULSE 48–58; TEMP 36.4–36.6; O2SAT 99–100
[2016-07-17] MEDS: ALBUTEROL HFA 8 GM INHALER INH SCH ×4 (03:44→13:14)
[2016-07-17] MEDS: HEPARIN SOD 5000 UNIT/0.5 ML CARP SQ SCH ×2 (05:44→13:15)
[2016-07-17] MEDS: DIPHENOXYLATE/ATROPINE 2.5/0.025MG TAB PO SCH (08:00)
[2016-07-17] MEDS: SEVELAMER HYDROCH 800 MG TAB PO SCH ×2 (08:05→13:08)
[2016-07-17] MEDS: PrednisoLONE ACET 1% OP SUSP 5 ML BTL OPL SCH (08:06)
[2016-07-17] MEDS: LIDOCAINE/PRILOCAINE 2.5% EA CRM EXT SCH (08:06)
[2016-07-17] MEDS: INSULIN GLARGINE SOLOSTAR 100 UNITS/ML 3 ML PEN SC SCH (08:10)
--- NOTE | 2016-07-17 09:27 | Dialysis Progress Note ---
Nephrology Dialysis Note Date of Service: Jul 17, 2016. Subjective 71 yo female with esrd who presented with copd exacerbation/pneumonia. pt developed bradycardia. pt seen on dialysis. pt would like to go home after dialysis today. Objective Date Time Temp Pulse Resp B/P Pulse Ox O2 Delivery O2 Flow Rate FiO2 07/17/16 08:00 Nasal Cannula 3.0 07/17/16 07:52 36.4 51 17 135/67 100 Nasal Cannula 3.0 07/17/16 00:00 Nasal Cannula 2.0 07/16/16 22:32 36.6 56 18 151/68 100 Nasal Cannula 3.0 07/16/16 20:00 Nasal Cannula 2.0 07/16/16 16:00 Nasal Cannula 07/16/16 15:47 36.8 49 17 127/68 100 Nasal Cannula 2.0 Physical Exam: General-aaox3 Eyes-no scleral icterus ENT-mmm Neck-supple Lungs-clear Heart-bradycardia Abdomen-bs+ s/nt/nd Extremities-no c/c/e Neuro-nonfocal Current Inpatient Medications Medications (Trade) Dose Ordered Sig/Joan Route Start Time Stop Time Status Last Admin Dose Admin Heparin Sodium (Porcine) (Heparin Sq 5000 Unit/0.5ml) 5,000 unit Q8H SQ 07/13/16 14:00 08/12/16 09:44 07/17/16 05:44 5,000 UNIT Albuterol (Ventolin Hfa Inhaler) 1 puffs Q4 INH 07/13/16 12:00 08/12/16 11:59 07/17/16 08:05 1 PUFFS Amlodipine Besylate (Norvasc Tab) 10 mg QAM PO 07/14/16 08:00 08/13/16 07:59 07/16/16 07:51 10 MG Clonidine HCl (Catapres Tab) 0.1 mg DAILY PO 07/14/16 08:00 08/13/16 07:59 07/16/16 07:51 0.1 MG Diphenoxylate HCl/ Atropine (Lomotil Tab) 1 tab BID PO 07/13/16 20:00 08/12/16 20:59 07/15/16 20:38 1 TAB Furosemide (Lasix Tab) 40 mg DAILY PO 07/14/16 08:00 08/13/16 08:59 07/16/16 07:53 40 MG Insulin Glargine (Lantus Solostar Pen) 26 unit QAM SC 07/14/16 08:00 08/13/16 08:59 07/17/16 08:10 26 UNIT Albuterol/ Ipratropium (Duoneb) 3 ml QID PRN INH 07/13/16 09:45 08/12/16 09:44 Lidocaine/ Prilocaine (Emla 2.5% Crm) 1 ea TuThSa@0900 EXT 07/13/16 10:00 08/12/16 09:59 07/17/16 08:06 1 EA Losartan Potassium (coZAAR TAB) 100 mg QAM PO 07/14/16 08:00 08/13/16 08:59 07/16/16 07:51 100 MG Metoprolol Tartrate (Lopressor Tab) 37.5 mg BID PO 07/13/16 20:00 08/12/16 20:59 07/15/16 10:48 37.5 MG Ondansetron HCl (Zofran Tab) 8 mg Q8 PRN PO 07/13/16 09:45 08/12/16 09:44 Pantoprazole Sodium (Protonix Tab) 40 mg DAILY PO 07/14/16 08:00 08/13/16 08:59 07/16/16 07:53 40 MG Prednisolone Acetate (Pred Forte 1% Oph Susp) 1 drops QAM OPL 07/14/16 08:00 08/13/16 08:59 07/17/16 08:06 1 DROPS Levofloxacin (Levaquin Tab) 500 mg Q48H PO 07/13/16 11:00 07/20/16 10:59 07/15/16 10:47 500 MG Sevelamer HCl (Renagel Tab) 800 mg TIDM PO 07/13/16 17:00 08/12/16 16:59 07/17/16 08:05 800 MG Prednisone (PredniSONE TAB) 40 mg DAILY PO 07/15/16 08:00 08/14/16 07:59 07/16/16 07:53 40 MG Epoetin Hakan (Procrit Inj) 10,000 units TODAY@1000 IV. 07/17/16 10:00 07/17/16 15:00 Last 24 Hours Test 07/16/16 11:35 07/16/16 16:49 07/16/16 21:01 07/17/16 07:41 Bedside Glucose 110 mg/dl 222 mg/dl 210 mg/dl 82 mg/dl Assessment & Plan ESRD:seen on dialysis today. tolerating dialysis well. bp is good. going for about 1.5 liters off. has rales at bases and on chronic oxygen but overall looks much improved. Anemia of renal failure-continue procrit for goal hg of 10 to 11. hg 9.1. riana-continue the renagel with meals. bradycardia-pt has not been getting her metoprolol with the bradycardia and would send her home off the metoprolol, however respectfully defer to hospitalist.
[2016-07-17] MEDS ORDERED: EPOETIN ALFA 10,000 UNITS/ML VIAL IV. SCH (10:00)
--- NOTE | 2016-07-17 10:30 | Progress Note ---
Internal Med Progress Note Date of Service: Jul 17, 2016. Provider Documentation: SUBJECTIVE: The patient was seen and examined No more wheezing and or SOB Much better today Ready to be discharged OBJECTIVE: Vital Signs-as noted below Exam: General-no distress at rest Eyes-normal ENT-normal Neck-Supple Lungs-Decreased breath sound bilaterally No wheezing and or crackles Heart-Regular,no murmur appreciated Abdomen-Benign,no masses,bowel sound present Extremities-Trace edema bilaterally Neuro-AAOX3 Lab data as noted below. ASSESSMENT & PLAN: WORSENING SOB; POSSIBLE PNEUMONIA VS. FLUID OVERLOAD/COPD EXACERBATION -pt presents with worsening SOB assoc with generalized weakness and cough -CXR bibasilar infiltrates -start Levaquin and duonebs -cont supplemental O2 -Continue with Dialysis -clinically a lot better -discharge home following Dialysis today ESRD ON HD -HD Hggi-Hyrvf-Xyb; pt did not have dialysis this morning -K+ 5.0 -consult nephro-appreciate input MODERATE COPD WITH ONGOING TOBACCO USE-Mild Exacerbation -uses O2 2.5L HS and PRN during the day -cont inhalers -will start small dose of Prednisone -pt education regarding importance of smoking cessation -clinically better today -no symptoms at rest -Levaquin for 10 days -Taper prednisone -Discharge home today PAROXYSMAL AFIB -EKG: NSR -Coumadin discontinued in May due to GI bleed -cont metoprolol -patient is not willing to restart -rate controlled CHRONIC ANEMIA -HgB 10.0 (stable) -continue to monitor HgB daily >9.0 -pt denies active bleed INSULIN-DEPENDENT DM 2 -recent A1C 4.9 -cont Lantus -start ISS -monitor BSG AC HS HTN -BP stable -cont amlodipine, clonidine, losartan and metoprolol -monitor -no issue DVT PROPHYLAXIS -not on Coumadin due to GI bleed -subq heparin CODE STATUS -FULL CODE per discussion with patient upon admission DISPO Discharge today Vital Signs: Date Time Temp Pulse Resp B/P Pulse Ox O2 Delivery O2 Flow Rate FiO2 07/17/16 10:00 52 128/61 07/17/16 09:45 52 149/64 07/17/16 09:30 51 135/64 07/17/16 09:10 50 122/62 07/17/16 09:05 36.4 58 132/75 07/17/16 08:00 Nasal Cannula 3.0 07/17/16 07:52 36.4 51 17 135/67 100 Nasal Cannula 3.0 07/17/16 00:00 Nasal Cannula 2.0 07/16/16 22:32 36.6 56 18 151/68 100 Nasal Cannula 3.0 07/16/16 20:00 Nasal Cannula 2.0 07/16/16 16:00 Nasal Cannula 07/16/16 15:47 36.8 49 17 127/68 100 Nasal Cannula 2.0 Lab Results: Results Past 24 Hours Test 07/16/16 11:35 07/16/16 16:49 07/16/16 21:01 07/17/16 07:41 Range/Units Bedside Glucose 110 222 210 82 70-90 mg/dl
[2016-07-17] MEDS ORDERED: PRD20 PO (11:36)
[2016-07-17] MEDS ORDERED: LVQ500 PO (11:36)
--- NOTE | 2016-07-17 11:40 | Discharge Instructions ---
Discharge Instructions Date of Service Jul 17, 2016. Admission Reason for Admission: Chf, Esrd On Dialysis, Sob Discharge Discharge Diagnosis / Problem: SOB,CHF,COPD exacerbation Discharge Goals Goal(s): Prevent Disease Progression Activity Recommendations Activity Limitations: resume your previous activity . Instructions / Follow-Up Instructions / Follow-Up Your doctor office will call with appointment.Keep doing OP Dialysis Current Hospital Diet Patient's current hospital diet: Renal Diet Discharge Diet Recommended Diet: Low Sodium Diet (2gm Na), Renal Diet Fluid Restriction: 1500 ml (6 cups) Pending Studies Studies pending at discharge: no Laboratory Results Hemoglobin A1c Test 05/12/16 05:23 Range/Units Estimated Average Glucose 94 mg/dl Hemoglobin A1c 4.9 4.5-5.6 % Medical Emergencies . Who to Call and When: Medical Emergencies: If at any time you feel your situation is an emergency, please call 911 immediately. . Non-Emergent Contact Non-Emergency issues call your: Primary Care Provider . Past History Medical & Surgical History: (1) CHF (congestive heart failure) (2) End stage renal disease (3) DM type 2 (diabetes mellitus, type 2) (4) Hypertension Nos (5) Pancreatic cyst (6) Dyslipidemia (7) Psoriasis (8) Adrenal adenoma . "Provider Documentation" section prepared by Emma Rodriguez. . VTE Core Measure Inpt VTE Proph given/why not?: Unfractionated heparin SQ
[2016-07-17] MEDS: METOPROLOL TARTRATE 25 MG TAB PO SCH (13:06)
[2016-07-17] MEDS: LEVOFLOXACIN 500 MG TAB PO SCH (13:07)
[2016-07-17] MEDS: AMLODIPINE BESYLATE 5 MG TAB PO SCH (13:07)
[2016-07-17] MEDS: LOSARTAN POTASSIUM 50 MG TAB PO SCH (13:08)
[2016-07-17] MEDS: PANTOprazole SOD 40 MG TAB PO SCH (13:08)
[2016-07-17] MEDS: FUROSEMIDE 40 MG TAB PO SCH (13:08)
[2016-07-17] MEDS: CLONIDINE HCL 0.1 MG TAB PO SCH (13:09)
--- NOTE | 2016-07-23 13:31 | Discharge Summary ---
Discharge Summary Date of Service Jul 23, 2016. Discharge Summary Admission Date: Jul 13, 2016 at 09:35 Discharge Date: Jul 17, 2016 Discharge Disposition: Home Principal Diagnosis: SOB,CHF,COPD exacerbation Secondary Diagnoses/Problems: Please see H&P and Hospital Progress note Consultations: Nephrology Medication Reconciliation New Medications: Levofloxacin (Levofloxacin) 500 Mg Tab 500 MG PO Q48H for 4 Days, #2 TAB Prednisone (Prednisone) 20 Mg Tab 20 MG PO UD for 10 Days, #10 TAB 1 and a 1/2 po daily for 3 days,1 po daily for 3 days and then 1/2 po daily for 3 days Continued Medications: Albuterol Hfa (Ventolin Hfa) 200 Puffs/74278 Mcg Aers 1 PUFFS INH Q4 Amlodipine (Norvasc) 10 Mg Tab 10 MG PO QAM Clonidine Hcl (Catapres) 0.1 Mg Tab 0.1 MG PO BID, TAB Cyanocobalamin (Cyanocobalamin) 1,000 Mcg/Ml Inj 1000 MCG IM MONTHLY Diphenoxylate/Atropine (Diphenoxylate/Atropine 2.5-0.025 mg) 1 Tab Tab 1 TAB PO BID, #30 TAB Epoetin Hakan (Procrit) 10,000 Units Inj per dialysis clinic Ergocalciferol (Vitamin D 21547 Unit) 50,000 Unit Cap 04603 UNIT PO MONTHLY, CAP 9th Fluticasone Prop/Salmeterol (Advair Diskus 250/50 60 Dose) 1 Ea Aerp 2 PUFF INH BID Furosemide (Furosemide) 40 Mg Tab 40 MG PO DAILY Insulin Aspart (Novolog Flexpen) 100 Units/Ml Inj UNITS SQ UD Insulin Glargine (Lantus) 100 Unit/Ml Inj 26 UNITS SC QAM, VIAL Ipratropium-Albuterol (Duoneb) 3 Ml Nebu 1 TREATMENT INH QID PRN for SOB/Wheezing Lidocaine-Prilocaine (Nkzmokpha-Trayugnoif-Mswu 2.5-2.5 %) 1 Cre Cre 1 APPLN TOP UD PRN for PRIOR TO DIALYSIS APPLY SMALL AMT TO ACCESS SITE 1-2 HOURS BEFORE DIALYSIS. COVER WITH SARAN WRAP Losartan Potassium (Cozaar) 100 Mg Tab 100 MG PO QAM, TAB Ondansetron Hcl (Zofran) 8 Mg Tab 8 MG PO Q8 PRN for Nausea or Vomiting, TAB Oxygen (Oxygen) Gas 2.5 LITERS NA HS Pantoprazole (Pantoprazole Sodium) 40 Mg Tab 1 TAB PO DAILY Prednisolone Acetate (Ophth) (Pred Forte 1% Oph) 1 % Neena 1 DROPS OPL QAM Discontinued Medications: Metoprolol Tartrate (Lopressor) (Lopressor) 25 Mg Tab 37.5 MG PO BID, TAB Admission Information HPI (per Admitting provider): This is a 71 y/o female with PMHx of COPD with ongoing tobacco use, ESRD on HD, IDDM, PAF, HTN and other problems as outlined below who presents to the ED c/o worsening SOB that began this morning. Patient reports that this morning around 0400 she was woken up from sleep with shortness of breath. The SOB is worse with laying flat and is unchanged with exertion. Sxs are assoc with diffuse pruritus, wet cough and bilat LE weakness but no edema. Pt tried increasing her oxygen to 3L with no relief. Pt has a history of ESRD on HD (). She went to dialysis this morning however due to her worsening SOB, she was sent to the ED via ambulance and did not receive dialysis. She follows with nephDr. Breezy goerge. Pt denies fever/chills, diaphoresis, chest pain, palpitations , abd pain, N/V, bladder issues, worsening LE edema, calf pain, lightheadedness/ dizziness. In the ED, vitals are stable. Pt is saturating well on 2L O2. She is afebrile with no leukocytosis. HgB 10. K+ 5.0. CXR bibasilar infiltrates. Pt will be admitted for further evaluation and treatment. Past Medical/Surgical History Medical Problems: (1) A-fib Permanent Comment: paroxysmal Status: Chronic (2) Adrenal adenoma Status: Chronic (3) Anemia of chronic disease Status: Chronic (4) AV fistula Status: Chronic (5) COPD, moderate Permanent Comment: 2L O2 at home Status: Chronic (6) Diastolic dysfunction with chronic heart failure Permanent Comment: echo 07/2014 - EF 60-65%, grade II diastolic dysfunction echo 06/2015 - diastolic function normal Status: Chronic (7) DM type 2 (diabetes mellitus, type 2) Status: Chronic (8) Dyslipidemia Status: Chronic (9) ESRD (end stage renal disease) on dialysis Status: Chronic (10) H/O cardiovascular stress test Permanent Comment: 05/2013 - negative for ischemia Status: Chronic (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 (12) Hypertension Nos Status: Chronic (13) Moderate mitral regurgitation Permanent Comment: echo 06/2015 - calcified mitral valve, moderate MR Status: Chronic (14) Obesity Status: Chronic (15) Osteoarthritis Status: Chronic (16) Pancreatic cyst Status: Chronic (17) Psoriasis Status: Chronic (18) Renal cyst Status: Chronic Surgical Problems: (1) H/O colonoscopy Permanent Comment: 2005, hyperplastic polyps repeat in 10 years Status: Chronic (2) H/O nasal polypectomy Status: Chronic (3) History of cataract surgery Status: Chronic (4) S/P appendectomy Permanent Comment: 1971 Status: Chronic (5) S/P cholecystectomy Permanent Comment: 1971 Status: Chronic (6) S/P left oophorectomy Permanent Comment: 1981 Status: Chronic (7) S/P ASH (total abdominal hysterectomy) Permanent Comment: For Fibroids Status: Resolved Family History Diabetes mellitus FATHER MOTHER BROTHER FH: cancer BROTHER FH: heart disease FATHER Hypertension BROTHER Kidney disease BROTHER Social History Smoking Status: Current Some Day Smoker (1 ppd x 55 years) Alcohol Use: none Drug Use: none Marital Status: Housing status: lives alone Occupational Status: retired Immunizations History of Influenza Vaccine: Yes Influenza Vaccine Date: Dec 26, 2014 History of Tetanus Vaccine?: Yes Tetanus Immunization Date: August 04, 2010 History of Pneumococcal: Yes Pneumococcal Date: Feb 24, 2015 Multi-Drug Resistant Organisms History of MDRO: No Allergies Coded Allergies: No Known Allergies (Verified , 07/13/16) Home Medications Scheduled Albuterol Hfa (Ventolin Hfa), 1 PUFFS INH Q4 Amlodipine (Norvasc), 10 MG PO QAM Clonidine Hcl (Catapres), 0.1 MG PO QAM Cyanocobalamin (Cyanocobalamin), 1,000 MCG IM MONTHLY Diphenoxylate/Atropine (Diphenoxylate/Atropine 2.5-0.025 mg), 1 TAB PO BID Ergocalciferol (Vitamin D 21930 Unit), 50,000 UNIT PO MONTHLY Fluticasone Prop/Salmeterol (Advair Diskus 250/50 60 Dose), 2 PUFF INH BID Furosemide (Furosemide), 40 MG PO DAILY Insulin Aspart (Novolog Flexpen), UNITS SQ UD Insulin Glargine (Lantus), 26 UNITS SC QAM Losartan Potassium (Cozaar), 100 MG PO QAM Metoprolol Tartrate (Lopressor) (Lopressor), 37.5 MG PO BID Oxygen (Oxygen), 2.5 LITERS NA HS Pantoprazole (Pantoprazole Sodium), 1 TAB PO DAILY Prednisolone Acetate (Ophth) (Pred Forte 1% Oph), 1 DROPS OPL QAM Scheduled PRN Ipratropium-Albuterol (Duoneb), 1 TREATMENT INH QID PRN for SOB/Wheezing Lidocaine-Prilocaine (Mzwbijlbn-Umvcpfetmg-Gwyt 2.5-2.5 %), 1 APPLN TOP UD PRN for PRIOR TO DIALYSIS Ondansetron Hcl (Zofran), 8 MG PO Q8 PRN for Nausea or Vomiting Miscellaneous Medications Epoetin Hakan (Procrit) Review of Systems Constitutional: + fatigue, + weakness, No chills, No fever, No sweats Eyes: No worsening of vision ENT: No hearing loss Respiratory: + cough, + dyspnea at rest, + dyspnea on exertion, + shortness of breath, + sputum, No wheezing Cardiovascular: No chest pain, No claudication, No edema Abdomen: No GI bleeding, No constipation, No diarrhea, No nausea, No pain, No vomiting Musculoskeletal: No calf pain, No swelling Genitourinary - Female: No dysuria Neurologic: + weakness Psychiatric: No depression symptoms Endocrine: + fatigue Hematologic / Lymphatic: No abnormal bleeding/bruising Integumentary: No new/changing skin lesions Physical Ex - H&P Physical Exam Vital Signs Date Time Temp Pulse Resp B/P Pulse Ox O2 Delivery O2 Flow Rate FiO2 07/13/16 09:08 97 Room Air 07/13/16 08:35 62 20 158/80 97 Room Air 07/13/16 07:54 67 07/13/16 07:34 Nasal Cannula 2.5 07/13/16 07:23 36.3 68 20 191/77 92 Nasal Cannula 2.5 07/13/16 07:23 92 Nasal Cannula 2.5 General Appearance: WD/WN, no apparent distress, + pertinent finding (Pt is laying in bed comfortably ) Head: normocephalic, atraumatic Eyes: normal inspection ENT: hearing grossly normal Neck: supple Respiratory/Chest: chest non-tender, no respiratory distress, no accessory muscle use, + crackles (bilateral bases) Cardiovascular: regular rate, rhythm, no edema, no murmur Abdomen/GI: normal bowel sounds, non tender, soft Back: normal inspection Extremities/Musculoskelatal: normal inspection, no calf tenderness, no pedal edema Neurologic/Psych: alert, normal mood/affect, oriented x 3 Skin: normal color, warm/dry Diagnostics - H&P Diagnostics Laboratory Results Results Past 24 Hours Test 07/13/16 07:15 Range/Units White Blood Count 6.49 4.8-10.8 K/uL Red Blood Count 3.18 4.2-5.4 M/uL Hemoglobin 10.0 12.0-16.0 g/dL Hematocrit 31.7 37-47 % Mean Corpuscular Volume 99.7 80-100 fL Mean Corpuscular Hemoglobin 31.4 25-34 pg Mean Corpuscular Hemoglobin Concent 31.5 32-36 g/dl Platelet Count 153 130-400 K/uL Mean Platelet Volume 10.0 7.4-10.4 fL Neutrophils (%) (Auto) 76.5 % Lymphocytes (%) (Auto) 12.0 % Monocytes (%) (Auto) 8.0 % Eosinophils (%) (Auto) 2.8 % Basophils (%) (Auto) 0.5 % Neutrophils # (Auto) 4.97 1.4-6.5 K/uL Lymphocytes # (Auto) 0.78 1.2-3.4 K/uL Monocytes # (Auto) 0.52 0.11-0.59 K/uL Eosinophils # (Auto) 0.18 0-0.5 K/uL Basophils # (Auto) 0.03 0-0.2 K/uL RDW Standard Deviation 74.0 36.4-46.3 fL RDW Coefficient of Variation 20.0 11.5-14.5 % Immature Granulocyte % (Auto) 0.2 % Immature Granulocyte # (Auto) 0.01 0.00-0.02 K/uL Anisocytosis PRESENT Sodium Level 140 136-145 mmol/L Potassium Level 5.0 3.5-5.1 mmol/L Chloride Level 99 98-107 mmol/L Carbon Dioxide Level 28 21-32 mmol/L Anion Gap 13.0 3-11 mmol/L Blood Urea Nitrogen 70 7-18 mg/dl Creatinine 10.00 0.60-1.20 mg/dl Est Creatinine Clear Calc Drug Dose 6.1 ml/min Estimated GFR () 4.1 Estimated GFR (Non- 3.5 BUN/Creatinine Ratio 7.0 10-20 Random Glucose 174 70-99 mg/dl Calcium Level 8.8 8.5-10.1 mg/dl Total Bilirubin 0.9 0.2-1 mg/dl Direct Bilirubin 0.3 0-0.2 mg/dl Aspartate Amino Transf (AST/SGOT) 19 15-37 U/L Alanine Aminotransferase (ALT/SGPT) 24 12-78 U/L Alkaline Phosphatase 107 45-117 U/L Total Protein 6.7 6.4-8.2 gm/dl Albumin 3.8 3.4-5.0 gm/dl Lipase 121 73-393 U/L Diagnostic Radiology CXR IMPRESSION: Bibasilar interstitial infiltrative change. EKG EKG: NSR at 67 bpm with no acute ischemic changes noted; no change when compared to EKG from 05/11/16 Impression - H&P Impression Assessment and Plan WORSENING SOB; POSSIBLE PNEUMONIA VS. FLUID OVERLOAD pt presents with worsening SOB assoc with generalized weakness and cough -admit to med/surg -vitals are stable; saturating well on 2L O2 -CXR bibasilar infiltrates -start Levaquin and duonebs -fluid mgmt with dialysis -cont supplemental O2 -monitor ESRD ON HD -HD Ggub-Jffpp-Pgm; pt did not have dialysis this morning -K+ 5.0 -consult nephroDr. Tijerina for dialysis today MODERATE COPD WITH ONGOING TOBACCO USE -uses O2 2.5L HS and PRN during the day -cont inhalers -pt education regarding importance of smoking cessation -monitor CHRONIC ANEMIA -HgB 10.0 (stable) -continue to monitor HgB daily -pt denies active bleed INSULIN-DEPENDENT DM 2 -recent A1C 4.9 -cont Lantus -start ISS -monitor BSG AC HS PAROXYSMAL AFIB -EKG: NSR -Coumadin discontinued in May due to GI bleed -cont metoprolol -monitor HTN -BP stable -cont amlodipine, clonidine, losartan and metoprolol -monitor DVT PROPHYLAXIS -subq heparin CODE STATUS -FULL CODE per discussion with patient upon admission DISPO -Pt seen in collaboration with Dr. Rodriguez. Please see his addendum for further details. Thanks! Attending Addendum:: The patient was seen and examined in ER SOB since early this AM Went for Dialysis and was sent in with SOB Generally very weak and lethargic O/E hemodynamically stable Chest-minimal crackles at the bases wit decreased breath sound bilaterally Heart-regular,no murmur Abdomen;Benign,no masses,bowel sound present Labs a\\nd Imaging studies were reviewed Agree with the assessment and plan Dr Leobardo Rodriguez Advanced Directives Existing Living Will: No Existing Power of A Class Lineman: No VTE Prophylaxis VTE Risk Assessment Done? Y/N: Yes Risk Level: Moderate Physical Exam (per Admitting): General Appearance: WD/WN, no apparent distress, + pertinent finding (Pt is laying in bed comfortably ) Head: normocephalic, atraumatic Eyes: normal inspection ENT: hearing grossly normal Neck: supple Respiratory/Chest: chest non-tender, no respiratory distress, no accessory muscle use, + crackles (bilateral bases) Cardiovascular: regular rate, rhythm, no edema, no murmur Abdomen/GI: normal bowel sounds, non tender, soft Back: normal inspection Extremities/Musculoskelatal: normal inspection, no calf tenderness, no pedal edema Neurologic/Psych: alert, normal mood/affect, oriented x 3 Skin: normal color, warm/dry Hospital Course WORSENING SOB; POSSIBLE PNEUMONIA VS. FLUID OVERLOAD/COPD EXACERBATION -pt presents with worsening SOB assoc with generalized weakness and cough -CXR bibasilar infiltrates -start Levaquin and duonebs -cont supplemental O2 -Continue with Dialysis -clinically a lot better -discharge home following Dialysis today ESRD ON HD -HD Azmh-Zgbop-Qwp; pt did not have dialysis this morning -K+ 5.0 -consult nephro-appreciate input MODERATE COPD WITH ONGOING TOBACCO USE-Mild Exacerbation -uses O2 2.5L HS and PRN during the day -cont inhalers -will start small dose of Prednisone -pt education regarding importance of smoking cessation -clinically better today -no symptoms at rest -Levaquin for 10 days -Taper prednisone -Discharge home today PAROXYSMAL AFIB -EKG: NSR -Coumadin discontinued in May due to GI bleed -cont metoprolol -patient is not willing to restart -rate controlled CHRONIC ANEMIA -HgB 10.0 (stable) -continue to monitor HgB daily >9.0 -pt denies active bleed INSULIN-DEPENDENT DM 2 -recent A1C 4.9 -cont Lantus -start ISS -monitor BSG AC HS HTN -BP stable -cont amlodipine, clonidine, losartan and metoprolol -monitor -no issue DVT PROPHYLAXIS -not on Coumadin due to GI bleed -subq heparin CODE STATUS -FULL CODE per discussion with patient upon admission DISPO Discharge today Total time spent on discharge = 35 minutes This includes examination of the patient, discharge planning, medication reconciliation, and communication with other providers. Discharge Instructions Date of Service Jul 17, 2016. Admission Reason for Admission: Chf, Esrd On Dialysis, Sob Discharge Discharge Diagnosis / Problem: SOB,CHF,COPD exacerbation Discharge Goals Goal(s): Prevent Disease Progression Activity Recommendations Activity Limitations: resume your previous activity . Instructions / Follow-Up Instructions / Follow-Up Your doctor office will call with appointment.Keep doing OP Dialysis Current Hospital Diet Patient's current hospital diet: Renal Diet Discharge Diet Recommended Diet: Low Sodium Diet (2gm Na), Renal Diet Fluid Restriction: 1500 ml (6 cups) Pending Studies Studies pending at discharge: no Laboratory Results Hemoglobin A1c Test 05/12/16 05:23 Range/Units Estimated Average Glucose 94 mg/dl Hemoglobin A1c 4.9 4.5-5.6 % Medical Emergencies . Who to Call and When: Medical Emergencies: If at any time you feel your situation is an emergency, please call 911 immediately. . Non-Emergent Contact Non-Emergency issues call your: Primary Care Provider . Past History Medical & Surgical History: (1) CHF (congestive heart failure) (2) End stage renal disease (3) DM type 2 (diabetes mellitus, type 2) (4) Hypertension Nos (5) Pancreatic cyst (6) Dyslipidemia (7) Psoriasis (8) Adrenal adenoma . "Provider Documentation" section prepared by Emma Rodriguez. . VTE Core Measure Inpt VTE Proph given/why not?: Unfractionated heparin SQ <Electronically signed by Emma Rodriguez M.D.> Signed: 07/17/16 1140 Signed: Additional Copies To Noam Armando M.D.
[2016-11-01] MEDS ORDERED: LCTX PO ×2 (11:20→11:35)
[2016-11-01] MEDS ORDERED: WARF5TAB90 PO ×2 (11:20→11:35)
[2016-11-01] MEDS ORDERED: LVQ500 PO ×2 (11:20→11:35)
[2017-02-06] MEDS ORDERED: METH4PAK PO (11:24)
[2017-02-14] MEDS ORDERED: METO50TA16 PO (12:04)
[2017-02-14] MEDS ORDERED: WARF-246 PO (12:04)
[2017-02-14] MEDS ORDERED: DILT120C50 PO (12:04)
== END 2016-07-17 14:12 | disposition home or self-care (01) | DRG 291 ==
LOC: ENRESERVDT → ENRESERVTM → EDBD 07:23 → C.EDB 07:24 → C.4E 09:35 → EDBEDREQ 09:44
PROVIDERS: ADMIT Internal Medicine; ATTEND Internal Medicine
PROC: 5A1D00Z (ICD-10-PCS; principal; 2016-07-17)
DX: I13.2 Hypertensive heart and chronic kidney disease with heart failure and with stage 5 chronic kidney disease, or end stage renal disease (principal); J44.1 Chronic obstructive pulmonary disease with (acute) exacerbation; N18.6 End stage renal disease; B00.51 Herpesviral iridocyclitis; I50.33 Acute on chronic diastolic (congestive) heart failure; D64.9 Anemia, unspecified; E11.21 Type 2 diabetes mellitus with diabetic nephropathy; F17.210 Nicotine dependence, cigarettes, uncomplicated; I48.0 Paroxysmal atrial fibrillation; D35.00 Benign neoplasm of unspecified adrenal gland; M19.90 Unspecified osteoarthritis, unspecified site; R00.1 Bradycardia, unspecified; Z79.4 Long term (current) use of insulin; Z99.2 Dependence on renal dialysis; Z83.3 Family history of diabetes mellitus

== ENCOUNTER 2016-10-26 10:30 | Inpatient (IN) | payer OTHER ==
[~2016-10-26] VITALS: Ht 167.6 cm; Wt 99.0 kg
[~2016-10-26 10:30] MED LIST changes: -CMD5 PO; +LVQ500 PO; -METO25TA56 PO; -PANT40TA2 PO; +PRD20 PO; +PRT/40 PO
[2016-10-26] MEDS ORDERED: AMLODIPINE BESYLATE 5 MG TAB PO ONE (10:45)
[2016-10-26 10:50] LABS: BASO % 0.2 %; BASO ABS # 0.01 K/uL (0-0.2); COMPLETE YES; EOS % 1.5 %; HEMATOCRIT 34.6 % (37-47); IG% 0.2 %; LYMPH ABS # 0.32 K/uL (1.2-3.4); MEAN CELL VOLUME 108.5 fL (80-100); MEAN CORPUSCULAR HEMOGLOBIN 33.9 pg (25-34); MEAN CORPUSCULAR HGB CONC 31.2 g/dl (32-36); MEAN PLATELET VOLUME 10.2 fL (7.4-10.4); MONO % 9.8 %; NEUT % 81.3 %; PLATELET COUNT 126 K/uL (130-400); RED BLOOD COUNT 3.19 M/uL (4.2-5.4)
[2016-10-26 10:58] LABS: PARTIAL THROMBOPLASTIN RATIO 1.1; PROTHROMBIN TIME (PATIENT) 10.3 SECONDS (9.0-12.0)
--- NOTE | 2016-10-26 11:05 | DIAGNOSTIC IMAGING REPORT ---
CHEST ONE VIEW PORTABLE CLINICAL HISTORY: Evaluate Fever/Sepsis COMPARISON STUDY: 07/13/2016 FINDINGS: Moderate respiratory motion. Minimal parenchymal infiltrate left base. Lungs otherwise appear clear. Diaphragms smooth. IMPRESSION: Minimal parenchymal infiltrate left base. Respiratory motion artifact. The above report was generated using voice recognition software. It may contain grammatical, syntax or spelling errors. Electronically signed by: Stevo Sanchez M.D. 10/26/2016 11:03 AM Dictated Date/Time: 10/26/2016 10:57 AM
[2016-10-26] MEDS ORDERED: CEFTRIAXONE SOD INJ 1 GM ADDVIAL IV STA (11:19)
[2016-10-26 11:24] LABS: BUN/CREATININE RATIO 4.4 (10-20); CALCIUM 9.2 mg/dl (8.5-10.1); CKMB/CK RATIO 2.4 (0-3.0); CREATININE 4.9 mg/dl (0.60-1.20); THYROID STIMULATING HORMONE 1.02 uIu/ml (0.300-4.500)
[2016-10-26] MEDS ORDERED: UMEC1INH INH (11:35)
[2016-10-26] MEDS ORDERED: CEPH500T PO (11:37)
[2016-10-26] MEDS ORDERED: LOSA1TAB38 PO (11:39)
[2016-10-26] MEDS ORDERED: CALC667C4 PO (11:44)
[2016-10-26] MEDS ORDERED: B-CO1CAP17 PO (11:47)
[2016-10-26] MEDS ORDERED: VALA1TAB2 PO (11:49)
[2016-10-26] MEDS ORDERED: DILTIAZEM HCL 5 MG/ML 5 ML VIAL IV STA (12:12)
--- NOTE | 2016-10-26 12:59 | EMERGENCY ROOM VISIT NOTE ---
History Report prepared by Sebastian: Rizwan Henderson Under the Supervision of: Dr. Himanshu Walsh D.O. First contact with patient: 10:33 Stated Complaint: IRREGULAR/A-FIB History of Present Illness The patient is a 71 year old female dialysis patient with a history of diabetes , atrial fibrillation and CHF who presents to the Emergency Room with an episode of atrial fibrillation that was discovered prior to arrival this morning. Per the nursing staff, the patient was at dialysis, and had a half hour to go, when it was discovered that the patient's heart was racing. The patient's EKG there showed a tachycardic heart rate of 130 and atrial fibrillation. Her blood sugars were around 168. The patient says that her head felt "funny" while at dialysis, but she thought nothing of it before the irregular heartbeat was discovered. Currently, she states that she feels normal without any pain. The patient notes that she started having a cough with clear sputum around 5 days ago. She is a smoker, but states that she is cutting back. The patient denies any rashes or recent travels outside the country. She says that her atrial fibrillation comes and goes at times. She adds that she did not take her medications this morning because she had dialysis this morning, and was planning to take her medications at lunch. Source of History: patient, nursing staff Onset: Prior to arrival this morning Position: other (heart ) Quality: other (atrial fibrillation, tachycardia) Timing: other (episode) Associated Symptoms: + cough, No rash Note: Associated symptoms: Head felt "funny". Denies any other complaints. Review of Systems See HPI for pertinent positives & negatives. A total of 10 systems reviewed and were otherwise negative. 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 (14) Hypertension Nos (15) Moderate mitral regurgitation (16) Obesity (17) Osteoarthritis (18) Pancreatic cyst (19) Psoriasis (20) Renal cyst (21) SOB (shortness of breath) Surgical Problems: (1) H/O colonoscopy (2) H/O nasal polypectomy (3) History of cataract surgery (4) S/P appendectomy (5) S/P cholecystectomy (6) S/P left oophorectomy (7) S/P ASH (total abdominal hysterectomy) Family History Diabetes mellitus FATHER MOTHER BROTHER FH: cancer BROTHER FH: heart disease FATHER Hypertension BROTHER Kidney disease BROTHER Social History Smoking Status: Current Some Day Smoker Drug Use: none Marital Status: Housing Status: lives with family Occupation Status: retired Current/Historical Medications Scheduled Amlodipine (Norvasc), 10 MG PO QAM Calcium Acetate (Phoslo 667 Mg), 3 CAP PO TIDM Cephalexin (Cephalexin), 500 MG PO BID Clonidine Hcl (Catapres), 0.1 MG PO DAILY Cyanocobalamin (Cyanocobalamin), 1,000 MCG IM MONTHLY Ergocalciferol (Vitamin D 99831 Unit), 50,000 UNIT PO MONTHLY Fluticasone Prop/Salmeterol (Advair Diskus 250/50 60 Dose), 1 PUFF INH BID Furosemide (Furosemide), 40 MG PO DAILY Home O2 Therapy (Oxygen), 2.5 LITERS NA HS Insulin Aspart (Novolog Flexpen), 1 DOSE SQ UD Insulin Glargine (Lantus), 26 UNITS SC QAM Losartan Potassium (Cozaar), 100 MG PO DAILY Pantoprazole (Pantoprazole Sodium), 40 MG PO BID Umeclidinium [place] (Incruse Ellipta), 1 PUFF INH DAILY Valacyclovir Hcl (Valtrex), 1,000 MG PO DAILY Vitamin B Cmplx/Vitc/Folic Ac (Nephrocaps), 1 CAP PO DAILY Scheduled PRN Albuterol Hfa (Ventolin Hfa), 2 PUFFS INH Q4 PRN for SOB/Wheezing Lidocaine-Prilocaine (Xjaesyywv-Nmgmcvrlfx-Gowa 2.5-2.5 %), 1 APPLN TOP UD PRN for PRIOR TO DIALYSIS Miscellaneous Medications Epoetin Hakan (Procrit) Allergies Coded Allergies: No Known Allergies (Verified , 10/26/16) Physical Exam Vital Signs Date Time Temp Pulse Resp B/P (MAP) Pulse Ox O2 Delivery O2 Flow Rate FiO2 8/1/17 13:04 135 22 143/84 96 Room Air 10/26/16 12:42 135 22 153/81 96 10/26/16 11:54 131 22 115/69 98 Nasal Cannula 2.5 10/26/16 11:07 123 10/26/16 11:05 123 16 130/77 98 Room Air 10/26/16 10:47 93 Nasal Cannula 2.5 10/26/16 10:41 90 Room Air 10/26/16 10:41 37.0 133 20 170/67 90 Room Air Physical Exam CONSTITUTIONAL/VITAL SIGNS: Reviewed / noted above. GENERAL: Non-toxic in appearance. INTEGUMENTARY: Warm, dry, and [place]. HEAD: Normocephalic. EYES: without scleral icterus or trauma. ENT/OROPHARYNX: clear and moist. LYMPHADENOPATHY/NECK: Is supple without lymphadenopathy or meningismus. RESPIRATORY: Lungs clear and equal. CARDIOVASCULAR: Slightly rapid and irregular heartbeat. GI/ABDOMEN: Soft and nontender. No organomegaly or pulsatile mass. No rebound or guarding. Normal bowel sounds. EXTREMITIES: Warm and well perfused. BACK: No CVA tenderness. NEUROLOGICAL: Intact without focal deficits. PSYCHIATRIC: normal affect. MUSCULOSKELETAL: Normally developed with good muscle tone. Medical Decision & Procedures ER Provider Diagnostic Interpretation: X ray results and stated below per my interpretation and radiology interpretation. CHEST ONE VIEW PORTABLE CLINICAL HISTORY: Evaluate Fever/Sepsis COMPARISON STUDY: 07/13/2016 FINDINGS: Moderate respiratory motion. Minimal parenchymal infiltrate left base. Lungs otherwise appear clear. Diaphragms smooth. IMPRESSION: Minimal parenchymal infiltrate left base. Respiratory motion artifact. The above report was generated using voice recognition software. It may contain grammatical, syntax or spelling errors. Electronically signed by: Stevo Sanchez M.D. 10/26/2016 11:03 AM Dictated Date/Time: 10/26/2016 10:57 AM Laboratory Results 10/26/16 10:10 Red Blood Count 3.19, Mean Corpuscular Volume 108.5, Mean Corpuscular Hemoglobin 33.9, Mean Corpuscular Hemoglobin Concent 31.2, Mean Platelet Volume 10.2, Neutrophils (%) (Auto) 81.3, Lymphocytes (%) (Auto) 7.0, Monocytes (%) ( Auto) 9.8, Eosinophils (%) (Auto) 1.5, Basophils (%) (Auto) 0.2, Neutrophils # ( Auto) 3.74, Lymphocytes # (Auto) 0.32, Monocytes # (Auto) 0.45, Eosinophils # ( Auto) 0.07, Basophils # (Auto) 0.01 10/26/16 10:10 Test 10/26/16 10:10 10/26/16 10:41 10/26/16 12:43 White Blood Count 4.60 K/uL (4.8-10.8) Red Blood Count 3.19 M/uL (4.2-5.4) Hemoglobin 10.8 g/dL (12.0-16.0) Hematocrit 34.6 % (37-47) Mean Corpuscular Volume 108.5 fL (80-100) Mean Corpuscular Hemoglobin 33.9 pg (25-34) Mean Corpuscular Hemoglobin Concent 31.2 g/dl (32-36) Platelet Count 126 K/uL (130-400) Mean Platelet Volume 10.2 fL (7.4-10.4) Neutrophils (%) (Auto) 81.3 % Lymphocytes (%) (Auto) 7.0 % Monocytes (%) (Auto) 9.8 % Eosinophils (%) (Auto) 1.5 % Basophils (%) (Auto) 0.2 % Neutrophils # (Auto) 3.74 K/uL (1.4-6.5) Lymphocytes # (Auto) 0.32 K/uL (1.2-3.4) Monocytes # (Auto) 0.45 K/uL (0.11-0.59) Eosinophils # (Auto) 0.07 K/uL (0-0.5) Basophils # (Auto) 0.01 K/uL (0-0.2) RDW Standard Deviation 66.4 fL (36.4-46.3) RDW Coefficient of Variation 17.0 % (11.5-14.5) Immature Granulocyte % (Auto) 0.2 % Immature Granulocyte # (Auto) 0.01 K/uL (0.00-0.02) Prothrombin Time 10.3 SECONDS (9.0-12.0) Prothromb Time International Ratio 1.0 (0.9-1.1) Activated Partial Thromboplast Time 27.5 SECONDS (21.0-31.0) Partial Thromboplastin Ratio 1.1 Anion Gap 9.0 mmol/L (3-11) Est Creatinine Clear Calc Drug Dose 12.6 ml/min Estimated GFR () 9.7 Estimated GFR (Non- 8.4 BUN/Creatinine Ratio 4.4 (10-20) Calcium Level 9.2 mg/dl (8.5-10.1) Total Bilirubin 0.5 mg/dl (0.2-1) Direct Bilirubin 0.2 mg/dl (0-0.2) Aspartate Amino Transf (AST/SGOT) 14 U/L (15-37) Alanine Aminotransferase (ALT/SGPT) 21 U/L (12-78) Alkaline Phosphatase 87 U/L (45-117) Total Creatine Kinase 38 U/L (26-192) Creatine Kinase MB 0.9 ng/ml (0.5-3.6) Creatine Kinase MB Ratio 2.4 (0-3.0) Troponin I 0.028 ng/ml (0-0.045) Total Protein 7.1 gm/dl (6.4-8.2) Albumin 3.5 gm/dl (3.4-5.0) Lipase 100 U/L (73-393) Thyroid Stimulating Hormone (TSH) 1.020 uIu/ml (0.300-4.500) Laboratory results as stated above per my review. Medications Administered Medications (Trade) Dose Ordered Sig/Joan Route Start Time Stop Time Status Last Admin Dose Admin Amlodipine Besylate (Norvasc Tab) 10 mg NOW ONCE PO 10/26/16 10:45 10/26/16 10:46 DC 10/26/16 11:04 10 MG Ceftriaxone Sodium (Rocephin Inj) 1 gm NOW STAT IV 10/26/16 11:19 10/26/16 11:20 DC 10/26/16 11:52 1 GM Diltiazem HCl (Cardizem Inj) 15 mg NOW STAT IV 10/26/16 12:12 10/26/16 12:13 DC 10/26/16 12:40 15 MG ECG Indication: tachycardia Rate (beats per minute): 119 Rhythm: atrial fibrillation Findings: PVC, other (diffuse T wave depressions) Comparison ECG Date: compared to 07/13/16, afib has replaced normal sinus rhythm ED Course 1036: Previous medical records were reviewed. The patient was evaluated in room A2. A complete history and physical examination was performed. 1045: Ordered Norvasc Tab 10 mg PO. 1119: Ordered Rocephin Inj 1 gm IV. 1210: I discussed the patient with Ashley Murcia import/export specialist - she will evaluate the patient for further treatment. 1212: Ordered Cardizem Inj 15 mg IV. 1223: On reevaluation, the patient is resting comfortably. I discussed the results and findings with her. She verbalized agreement of the treatment plan. The patient will be evaluated for further management and care. Medical Decision Differential includes acute coronary syndrome, myocardial infarction, CVA, TIA, anemia, infection, pneumonia, UTI, pyelonephritis, poor nutrition, dehydration, electrolyte disturbance,hypoglycemia. This is a 71-year-old female who presents to the ED with a chief complaint of rapid heart rate and A. fib. The patient is a dialysis-dependent renal failure patient. She has a history of A. fib in the past. The patient states that she has refused to be on anticoagulation because of problems associated with this. The patient states that she was told that she developed tachycardia during her dialysis today. She states that she felt a little funny in her head. The patient otherwise denies any significant symptoms. She does report a cough for about the past 4 days. It is productive only for a clear sputum. She does report being a smoker despite all of her chronic issues including COPD. A twelve-lead EKG here reveals A. fib at a rate of 119 with a PVC. There are some diffuse T-wave changes. Prior EKG shows a normal sinus rhythm without ischemic changes. Chest x-ray reveals a left base infiltrate. CBC is unremarkable. The BUN is 22 and a creatinine is 4.9. TSH was normal. Potassium is 3.0. The patient was treated with IV Rocephin as well as amlodipine by mouth. She states that she did not take her morning medications today. The patient's heart rate did not improve with the amlodipine by mouth. She was given IV Cardizem and drip. The heart rate did improve into the low 100 range. The patient will be seen by the hospitalist service for further inpatient evaluation. The patient appears to be mostly in a normal sinus rhythm. She is currently not on anticoagulation. She has pneumonia. Medication Reconcilliation Current Medication List: was personally reviewed by me Blood Pressure Screening Patient's blood pressure: Elevated blood pressure Blood pressure disposition: Elevated BP felt to be situational Consults Time Called: 1207 Consulting Physician: Ashley Murcia import/export specialist Returned Call: 1210 I discussed the patient with Ashley Murcia import/export specialist - she will evaluate the patient for further treatment. Impression Primary Impression: Atrial fibrillation with RVR Additional Impression: PNA (pneumonia) Scribe Attestation The scribe's documentation has been prepared under my direction and personally reviewed by me in its entirety. I confirm that the note above accurately reflects all work, treatment, procedures, and medical decision making performed by me. Departure Information Dispostion Being Evaluated By Hospitalist Referrals Noam Armando M.D. (PCP) Problem Qualifiers Additional Impression: PNA (pneumonia) Pneumonia type: due to unspecified organism Laterality: unspecified laterality Lung location: unspecified part of lung Qualified Codes: J18.9 - Pneumonia, unspecified organism
[2016-10-26 13:00] VITALS: O2SAT 96; Ht 167.6 cm; Wt 99.0 kg
[2016-10-26] MEDS ORDERED: ACETAMINOPHEN 325 MG TAB PO PRN (13:00)
[2016-10-26] MEDS ORDERED: ONDANSETRON INJ 2 MG/ML 2 ML VIAL IV PRN (13:00)
[2016-10-26] MEDS ORDERED: DILTIAZEM BOLUS / DRIP IV STA ×2 (13:06→13:22)
[2016-10-26] MEDS ORDERED: DILTIAZEM HCL 5 MG/ML 5 ML VIAL IV SCH (13:30)
[2016-10-26] MEDS: DILTIAZEM HCL INJ 125 MG in DEXTROSE 5% 100ML IV PRN ×2 (13:30→21:40)
[2016-10-26] MEDS ORDERED: PRED1SUS3 OPL (13:30)
[2016-10-26] MEDS ORDERED: IPRASOL4 INH (13:30)
[2016-10-26] MEDS ORDERED: PSEU1TAB PO (13:30)
[2016-10-26] MEDS ORDERED: ACET325T82 PO (13:30)
[2016-10-26] MEDS ORDERED: DEXTROSE 50% 50 ML SYR IV PRN (13:45)
[2016-10-26] MEDS ORDERED: GLUCOSE 40% GEL 15 GM TUBE PO PRN (13:45)
[2016-10-26] MEDS ORDERED: GLUCAGON FOR INJ 1 MG VIAL SQ PRN (13:45)
[2016-10-26] MEDS ORDERED: GLUCOSE 10 TABS/TUBE PO PRN (13:45)
[2016-10-26] MEDS ORDERED: LEVALBUTEROL/IPRATROPIUM NEB INH PRN (13:45)
[2016-10-26] MEDS ORDERED: HEPARIN IV LOW DOSE NO BOLUS SCH (13:47)
[2016-10-26] MEDS ORDERED: CEFEPIME CONSULT ACTIVE PRN ×2 (14:00)
[2016-10-26] MEDS ORDERED: VANCOMYCIN CONSULT ACTIVE PRN (14:00)
--- NOTE | 2016-10-26 14:20 | History and Physical ---
History & Physical Date & Time of Service: Oct 26, 2016 at 13:38 Chief Complaint: Irregular/A-Fib Primary Care Physician: Noam Armando M.D. History of Present Illness Source: patient, clinic records, hospital records This is a 71 y/o female with PMH of ESRD on HD, paroxysmal atrial fibrillation off Coumadin due to GIB in 04/2016, HTN, DM type 2, COPD with chronic respiratory failure, current smoker, and other problems listed below who was sent to the ED from dialysis for AF with RVR. Patient dialyzes [id number] in [place] and f/w Dr. Tijerina for nephro. She had approx 3.5 hours of dialysis done however was noted to be tachycardic and EKG showed AF with RVR rate 130s. Patient states she "felt funny"/ head felt "cloudy" during dialysis but now feels asymptomatic without dizziness. She notes cough for 3-4 days with clear sputum production and mild wheezing in the mornings. Has been using Advair inhaler. Not feeling wheezy/ SOB at present. Has minimal urine production at baseline. Has been on Keflex x 5 days for left hand infected wound with improvement- no longer erythematous, drainage is decreased. She denies fever, chills, nasal congestion, sore throat, syncope, chest pain, palpitations, N/V, hematochezia/ melena, dysuria, focal numbness/ weakness. Patient's Coumadin was stopped in Apr 2016 for GIB in setting of supra- therapeutic INR. At that time she required 5 units pRBC transfusion. EGD/ colonoscopy were deferred inpatient as she had recently had EGD in 01/2016 with H. Pylori gastritis which was treated. Patient states "I want nothing to do with it" when asked about Coumadin. She was in NSR on last admission 06/2016. Patient follows with Stevo Velasquez PA-C for cardiology- last seen 12/2015. 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 (12) History of Helicobacter pylori infection Status: Chronic (13) Hypertension Nos Status: Chronic (14) Moderate mitral regurgitation Permanent Comment: moderate to severe on 12/2015 echo Status: Chronic (15) Obesity Status: Chronic (16) Osteoarthritis Status: Chronic (17) Pancreatic cyst Status: Chronic (18) Psoriasis Status: Chronic (19) Renal cyst Status: Chronic Surgical Problems: (1) H/O colonoscopy Permanent Comment: 2005, hyperplastic polyps repeat in 10 years Status: Chronic (2) H/O nasal polypectomy Status: Chronic (3) History of cataract surgery Status: Chronic (4) S/P appendectomy Permanent Comment: 1971 Status: Chronic (5) S/P cholecystectomy Permanent Comment: 1971 Status: Chronic (6) S/P left oophorectomy Permanent Comment: 1981 Status: Chronic (7) S/P ASH (total abdominal hysterectomy) Permanent Comment: For Fibroids Status: Resolved Family History Diabetes mellitus FATHER MOTHER BROTHER FH: cancer BROTHER FH: heart disease FATHER Hypertension BROTHER Kidney disease BROTHER Social History Smoking Status: Current Every Day Smoker (cut down to 5-6 cigarettes/ day. prior 1/2 ppd x 50 years) Alcohol Use: none Drug Use: none Marital Status: Housing status: lives alone Occupational Status: retired Immunizations History of Influenza Vaccine: Yes Influenza Vaccine Date: Dec 26, 2014 History of Tetanus Vaccine?: Yes Tetanus Immunization Date: August 04, 2010 History of Pneumococcal: Yes Pneumococcal Date: Feb 24, 2015 Multi-Drug Resistant Organisms History of MDRO: No Allergies Coded Allergies: No Known Allergies (Verified , 10/26/16) Home Medications Scheduled Amlodipine (Norvasc), 10 MG PO QAM Calcium Acetate (Phoslo 667 Mg), 2 CAP PO TIDM Cephalexin (Cephalexin), 500 MG PO BID Clonidine Hcl (Catapres), 0.1 MG PO BID Cyanocobalamin (Cyanocobalamin), 1,000 MCG IM MONTHLY Ergocalciferol (Vitamin D 93185 Unit), 50,000 UNIT PO MONTHLY Fluticasone Prop/Salmeterol (Advair Diskus 250/50 60 Dose), 2 PUFF INH BID Furosemide (Furosemide), 40 MG PO DAILY Home O2 Therapy (Oxygen), 2.5 LITERS NA CONTINOUS Insulin Aspart (Novolog Flexpen), 1 DOSE SQ UD Insulin Glargine (Lantus), 26 UNITS SC QAM Losartan Potassium (Cozaar), 100 MG PO DAILY Prednisolone Acetate (Ophth) (Pred Forte 1% Oph), 1 DROPS OPL DAILY Umeclidinium [place] (Incruse Ellipta), 1 PUFF INH DAILY Valacyclovir Hcl (Valtrex), 1,000 MG PO DAILY Vitamin B Cmplx/Vitc/Folic Ac (Nephrocaps), 1 CAP PO DAILY Scheduled PRN Acetaminophen (Apap), 650 MG PO Q6 PRN for Pain Albuterol Hfa (Ventolin Hfa), 2 PUFFS INH Q4 PRN for SOB/Wheezing Ipratropium-Albuterol (Duoneb), 1 TREATMENT INH QID PRN for SOB/Wheezing Lidocaine-Prilocaine (Yztpuzcig-Tvxnlwkxku-Nigo 2.5-2.5 %), 1 APPLN TOP UD PRN for PRIOR TO DIALYSIS Pseudoephedrine-Guaifenesin (Cvs Mucus D Extended Rele 60-600 mg), 1 TAB PO Q12 PRN for Nasal Congestion Miscellaneous Medications Epoetin Hakan (Procrit) Review of Systems Ten systems reviewed and negative except as noted in HPI. Physical Exam Vital Signs Date Time Temp Pulse Resp B/P (MAP) Pulse Ox O2 Delivery O2 Flow Rate FiO2 10/26/16 13:04 135 22 143/84 96 Room Air 10/26/16 13:00 96 Room Air 10/26/16 12:42 135 22 153/81 96 10/26/16 11:54 131 22 115/69 98 Nasal Cannula 2.5 10/26/16 11:07 123 10/26/16 11:05 123 16 130/77 98 Room Air 10/26/16 10:47 93 Nasal Cannula 2.5 10/26/16 10:41 90 Room Air 10/26/16 10:41 37.0 133 20 170/67 90 Room Air General Appearance: WD/WN, no apparent distress Head: normocephalic, atraumatic Eyes: normal inspection, PERRL, EOMI ENT: hearing grossly normal, pharynx normal Neck: supple, trachea midline Respiratory/Chest: lungs clear, normal breath sounds, no respiratory distress, no accessory muscle use, + pertinent finding (wet sounding cough during exam. no wheezing. saturating well on 2.5 liters NC. ) Cardiovascular: no murmur, normal peripheral pulses, + tachycardia (rate 110s- 120s), + irregularly irregular Abdomen/GI: normal bowel sounds, non tender, soft Extremities/Musculoskelatal: no calf tenderness, no pedal edema Neurologic/Psych: alert, normal mood/affect, oriented x 3, + pertinent finding (no focal deficit on gross examination) Skin: normal color, warm/dry, + pertinent finding (2 x 1 cm superficial ulceration on dorsum of left hand. no drainage. no surrounding erythema or swelling. ) Diagnostics Laboratory Results Results Past 24 Hours Test 10/26/16 10:10 10/26/16 10:41 Range/Units White Blood Count 4.60 4.8-10.8 K/uL Red Blood Count 3.19 4.2-5.4 M/uL Hemoglobin 10.8 12.0-16.0 g/dL Hematocrit 34.6 37-47 % Mean Corpuscular Volume 108.5 80-100 fL Mean Corpuscular Hemoglobin 33.9 25-34 pg Mean Corpuscular Hemoglobin Concent 31.2 32-36 g/dl Platelet Count 126 130-400 K/uL Mean Platelet Volume 10.2 7.4-10.4 fL Neutrophils (%) (Auto) 81.3 % Lymphocytes (%) (Auto) 7.0 % Monocytes (%) (Auto) 9.8 % Eosinophils (%) (Auto) 1.5 % Basophils (%) (Auto) 0.2 % Neutrophils # (Auto) 3.74 1.4-6.5 K/uL Lymphocytes # (Auto) 0.32 1.2-3.4 K/uL Monocytes # (Auto) 0.45 0.11-0.59 K/uL Eosinophils # (Auto) 0.07 0-0.5 K/uL Basophils # (Auto) 0.01 0-0.2 K/uL RDW Standard Deviation 66.4 36.4-46.3 fL RDW Coefficient of Variation 17.0 11.5-14.5 % Immature Granulocyte % (Auto) 0.2 % Immature Granulocyte # (Auto) 0.01 0.00-0.02 K/uL Prothrombin Time 10.3 9.0-12.0 SECONDS Prothromb Time International Ratio 1.0 0.9-1.1 Activated Partial Thromboplast Time 27.5 21.0-31.0 SECONDS Partial Thromboplastin Ratio 1.1 Sodium Level 138 136-145 mmol/L Potassium Level 3.0 3.5-5.1 mmol/L Chloride Level 96 98-107 mmol/L Carbon Dioxide Level 33 21-32 mmol/L Anion Gap 9.0 3-11 mmol/L Blood Urea Nitrogen 22 7-18 mg/dl Creatinine 4.90 0.60-1.20 mg/dl Est Creatinine Clear Calc Drug Dose 12.6 ml/min Estimated GFR () 9.7 Estimated GFR (Non- 8.4 BUN/Creatinine Ratio 4.4 10-20 Random Glucose 138 70-99 mg/dl Calcium Level 9.2 8.5-10.1 mg/dl Magnesium Level 2.1 1.8-2.4 mg/dl Total Bilirubin 0.5 0.2-1 mg/dl Direct Bilirubin 0.2 0-0.2 mg/dl Aspartate Amino Transf (AST/SGOT) 14 15-37 U/L Alanine Aminotransferase (ALT/SGPT) 21 12-78 U/L Alkaline Phosphatase 87 45-117 U/L Total Creatine Kinase 38 26-192 U/L Creatine Kinase MB 0.9 0.5-3.6 ng/ml Creatine Kinase MB Ratio 2.4 0-3.0 Troponin I 0.028 0-0.045 ng/ml Total Protein 7.1 6.4-8.2 gm/dl Albumin 3.5 3.4-5.0 gm/dl Lipase 100 73-393 U/L Thyroid Stimulating Hormone (TSH) 1.020 0.300-4.500 uIu/ml Diagnostic Radiology CHEST ONE VIEW PORTABLE IMPRESSION: Minimal parenchymal infiltrate left base. Respiratory motion artifact. EKG Afib with RVR, 119 bpm, ST depression lead II and V3-V6- not present on prior EKG Impression Assessment and Plan ATRIAL FIBRILLATION WITH RVR Sent to ER after AF RVR noted at dialysis; hx PAF; off Coumadin since 04/2016 when admitted for GIB Possibly triggered by infection (pneumonia) Initial troponin neg; TSH is wnl Trend serial cardiac enzymes Check echo Cardizem bolus given in ER Start Cardizem drip Will place on heparin drip (patient agreeable) Consult cardiology HCAP Reports productive cough CXR shows L basilar pneumonia Afebrile, no leukocytosis IV Rocephin given in ED Continue empiric antibiotics- vancomycin and cefepime for HCAP as she is a HD patient Check sputum culture HYPOKALEMIA Likely secondary to dialysis 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 mag Recheck in AM ESRD ON HD Dialyzes Geft-Espwo-Dim Had 3 hours of dialysis 10/26 just DECK WORKER Consult nephrology COPD/ CHRONIC RESPIRATORY FAILURE Not in exacerbation PRN Xopenex/ Atrovent nebs Continue Advair and Incruse Ellipta inhalers Continue chronic oxygen 2.5 L NC continuous Smoking cessation advised HYPERTENSION BP is stable Continue amlodipine, clonidine, furosemide, losartan DM TYPE 2 Continue home Lantus Novolog sliding scale RECENT LEFT HAND INFECTED WOUND/ CELLULITIS Improved with outpatient Keflex course- wound still present but no sign of cellulitis CHRONIC ANEMIA Hg in 10's, stable from baseline DVT PROPHYLAXIS Placed on heparin drip FULL CODE DISPOSITION Follows with Dr. Armando for primary care Patient seen in collaboration with Dr. Hyatt. Please see her addendum. Attending addendum: Agree with the above H&P in its entirety, please see above for more detail. Patient was referred to the ER from dialysis today for complaints that she was in atrial fibrillation and tachycardic to 130's. The patient also reports symptoms of productive cough, mild occasional wheezing, clear sputum, and general fatigue. She denies any complaints of CP, palpitations, or worsening SOB. She remains on her baseline amount of oxygen. Cardiac: irregularly irregular, S1 and S2 auscultated Resp: +crackles, diminished breath sounds, no wheezes GI: soft, NT, ND, + bowel sounds PAROXYSMAL ATRIAL FIBRILLATION: with RVR -patient has been off coumadin since April when she had melena and a supratherapeutic INR; she refused to go back on coumadin after that but is agreeable to IV heparin this admission; source of GI bleed was not determined and was attributed to elevated INR -obtain serial cardiac markers -check TSH -continue heparin drip and cardizem drip -Consult cardiology PNEUMONIA: -per CXR -cover for HCAP with vanco + cefepime -obtain sputum and blood cultures -follow up CXR if not improving -on baseline level of oxygen at this time Advanced Directives Existing Living Will: No Existing Power of Dinkey Engine Firer: No VTE Prophylaxis VTE Risk Assessment Done? Y/N: Yes Risk Level: Moderate
--- NOTE | 2016-10-26 14:43 | Pharmacy Progress Note ---
Pharmacy Abx Initial Consult Date of Service Oct 26, 2016. Pharmacy Dosing Scope Date of Consult: 10/26/16 Consultation requested by: PAYAM Meza Pharmacy is consulted to initiate Vancomycin and Cefepime IV dosing therapies for HCAP in a patient receiving intermittent hemodialysis, order appropriate labs and adjust drug dose/frequency. Subjective The patient is a 71 year old female admitted on . Objective Height (Feet): 5 Height (Inches): 6.00 Weight (Kilograms): 95.600 Vital Signs (Past 12Hrs) Vital Signs Past 12 Hours Date Time Temp Pulse Resp B/P (MAP) Pulse Ox O2 Delivery O2 Flow Rate FiO2 10/26/16 14:27 95 28 147/72 98 10/26/16 13:43 104 28 126/71 96 Nasal Cannula 2.5 10/26/16 13:04 135 22 143/84 96 Room Air 10/26/16 13:00 96 Room Air 10/26/16 12:42 135 22 153/81 96 10/26/16 11:54 131 22 115/69 98 Nasal Cannula 2.5 10/26/16 11:07 123 10/26/16 11:05 123 16 130/77 98 Room Air 10/26/16 10:47 93 Nasal Cannula 2.5 10/26/16 10:41 90 Room Air 10/26/16 10:41 37.0 133 20 170/67 90 Room Air Lab Results (24Hrs) Laboratory Tests (24 Hours) Test 10/26/16 10:10 White Blood Count 4.60 K/uL (4.8-10.8) L Red Blood Count 3.19 M/uL (4.2-5.4) L Hemoglobin 10.8 g/dL (12.0-16.0) L Hematocrit 34.6 % (37-47) L Mean Corpuscular Volume 108.5 fL (80-100) H Mean Corpuscular Hemoglobin 33.9 pg (25-34) Mean Corpuscular Hemoglobin Concent 31.2 g/dl (32-36) L Platelet Count 126 K/uL (130-400) L Mean Platelet Volume 10.2 fL (7.4-10.4) Neutrophils (%) (Auto) 81.3 % Lymphocytes (%) (Auto) 7.0 % Monocytes (%) (Auto) 9.8 % Eosinophils (%) (Auto) 1.5 % Basophils (%) (Auto) 0.2 % Neutrophils # (Auto) 3.74 K/uL (1.4-6.5) Lymphocytes # (Auto) 0.32 K/uL (1.2-3.4) L Monocytes # (Auto) 0.45 K/uL (0.11-0.59) Eosinophils # (Auto) 0.07 K/uL (0-0.5) Basophils # (Auto) 0.01 K/uL (0-0.2) Total Creatine Kinase 38 U/L (26-192) Risk Factors for Resistance * Chronic dialysis within the past 30 days Assessment & Plan Assessment 71 year old female: * ESRD on intermittent hemodialysis (Tuesday, , Tuesday) * Diabetes mellitus type 2 Plan Pharmacy has been consulted for treatment of HCAP Vancomycin IV * Loading dose: 1500 mg (15.7 mg/kg) x 1 dose * Goal trough level for HCAP : 15 to 20 mcg/mL * Random level ordered for 10/28/16 with AM labs on the morning of her next HD treatment * Pharmacy to redose Vancomycin after HD treatments with the dose based on random levels on mornings of HD Cefepime * The recommended dose is 1 g IV/IM on day 1 followed by 500 mg IV/IM every 24 hours for the treatment of all infections except febrile neutropenia, which is 1 g IV/IM every 24 hours in patients receiving intermittent hemodialysis. Pharmacy will continue to follow and will adjust dose/frequency as necessary. Thank you.
[2016-10-26 14:55] VITALS: BP 122/79; PULSE 105; TEMP 37; O2SAT 96
[2016-10-26] MEDS ORDERED: LEVALBUTEROL 1.25MG/0.5ML NEB INH PRN (15:30)
[2016-10-26] MEDS ORDERED: IPRATROPIUM BROMIDE NEB SOLN 0.02% 2.5 ML VIAL INH PRN (15:30)
[2016-10-26 16:00] VITALS: O2SAT 96
[2016-10-26] MEDS ORDERED: PERFLUTREN LIPID MICROSPHERE (DEFINITY) IV ONE (16:01)
[2016-10-26] MEDS ORDERED: POTASSIUM CHLORIDE 10 MEQ TABCR PO STA (16:15)
[2016-10-26] MEDS ORDERED: VANCOMYCIN INJ 1,500 MG in SODIUM CHLORIDE 0.9% 500ML 500 ML IV ONE (16:30)
[2016-10-26] MEDS ORDERED: WARFARIN SOD 5 MG TAB PO ONE (16:45)
[2016-10-26 16:54] LABS: CKMB/CK RATIO 3.1 (0-3.0)
--- NOTE | 2016-10-26 17:12 | Cardiology Consultation ---
Cardiology Consultation Date of Consultation: Oct 26, 2016 Attending Transmitter Operator: Dr. Lopez History of Present Illness Patient is a 71 year old female sent from HD today with report of atrial fibrillation. Pt states that she went to dialysis today in her normal state of health. Near the end of her treatment, suddenly felt her heart start to race. Pulse was tachycardic and transferred to ED. Upon arrival in afib with rvr, started on heparin and cardizem gtt's. Currently without complaint. Denies cp, sob, lightheadedness or dizziness. Of note, patient stopped her coumadin on her own, "so long ago I don't remember when") siting her dislike of blood thinners. Also, has not followed up with cardiology, missing last 2 appointments. 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 (14) History of Helicobacter pylori infection (15) Hypertension Nos (16) Moderate mitral regurgitation (17) Obesity (18) Osteoarthritis (19) Pancreatic cyst (20) Psoriasis (21) Renal cyst (22) SOB (shortness of breath) Surgical Problems: (1) H/O colonoscopy (2) H/O nasal polypectomy (3) History of cataract surgery (4) S/P appendectomy (5) S/P cholecystectomy (6) S/P left oophorectomy (7) S/P ASH (total abdominal hysterectomy) Family History Diabetes mellitus FATHER MOTHER BROTHER FH: cancer BROTHER FH: heart disease FATHER Hypertension BROTHER Kidney disease BROTHER Social History Smoking Status: Current Every Day Smoker (cut down to 5-6 cigarettes/ day. prior 1/2 ppd x 50 years) Alcohol Use: none Drug Use: none Marital Status: Housing Status: lives alone Occupation: retired Review Of Systems General: The patient denies weight change, night sweats, fever, chills. Head: The patient denies headache and prior head trauma. Cardiovascular: The patient denies chest pain or chest discomfort, dyspnea on exertion, palpitations, PND, orthopnea, edema, spontaneous shortness of breath, syncope and near syncope. Pulmonary: The patient denies cough, wheeze, pleurisy, hemoptysis, sputum, and excessive snoring. Gastrointestinal: The patient denies nausea, vomiting, diarrhea, constipation, bloating, hematemesis, hematochezia, and abdominal pain. Skin: The patient denies diaphoresis and rash. Musculoskeletal: The patient denies joint pain, joint swelling, myalgia, back pain, neck pain and prior injuries. Neurological: The patient denies prior stroke and seizures Allergies Coded Allergies: No Known Allergies (Verified , 10/26/16) Medications Reported Home Medications Medications Dose Route/Sig Max Daily Dose Days Date Category Dose Instructions Cvs Mucus D Extended Rele 60-600 mg (Pseudoephedrine-Guaifenesin) 1 Tab Tab 1 Tab PO Q12 PRN 10/26/16 Reported Pred Forte 1% Oph (Prednisolone Acetate (Ophth)) 1 % Neena 1 Drops OPL DAILY 10/26/16 Reported Duoneb (Ipratropium-Albuterol) 3 Ml Nebu 1 Treatment INH QID PRN 10/26/16 Reported Apap (Acetaminophen) 325 Mg Tab 650 Mg PO Q6 PRN 10/26/16 Reported Valtrex (Valacyclovir Hcl) 1 Gm Tab 1,000 Mg PO DAILY 10/26/16 Reported Nephrocaps (Vitamin B Complex/Vit C/Folic Acid) Cap 1 Cap PO DAILY 10/26/16 Reported Phoslo 667 Mg (Calcium Acetate) 667 Mg Cap 2 Cap PO TIDM 10/26/16 Reported Cozaar (Losartan Potassium) 100 Mg Tab 100 Mg PO DAILY 10/26/16 Reported Cephalexin 500 Mg Tab 500 Mg PO BID 10 10/26/16 Reported Incruse Ellipta (Umeclidinium Whiting) 62.5 Mcg/Inh Inh 1 Puff INH DAILY 10/26/16 Reported Lantus (Insulin Glargine) 100 Unit/Ml Inj 26 Units SC QAM 07/13/16 Reported Furosemide 40 Mg Tab 40 Mg PO DAILY 05/01/16 Reported Dwjiyypza-Wvznwabosz-Juyw 2.5-2.5 % (Lidocaine-Prilocaine) 1 Cre Cre 1 Appln TOP UD PRN 05/01/16 Reported APPLY SMALL AMT TO ACCESS SITE 1-2 HOURS BEFORE DIALYSIS. COVER WITH SARAN WRAP Vitamin D 92333 Unit (Ergocalciferol) 50,000 Unit Cap 50,000 Unit PO MONTHLY 05/01/16 Reported 9th Procrit (Epoetin Hakan) 10,000 Units Inj 05/01/16 Reported per dialysis clinic Ventolin Hfa (Albuterol) 200 Puffs/05328 Mcg Aers 2 Puffs INH Q4 PRN 05/01/16 Reported Cyanocobalamin 1,000 Mcg/Ml Inj 1,000 Mcg IM MONTHLY 04/12/16 Reported Oxygen Gas 2.5 Liters NA CONTINOUS 05/15/15 Reported Advair Diskus 250/50 60 Dose (Fluticasone Prop/Salmeterol) 1 Ea Aerp 2 Puff INH BID 05/15/15 Reported Catapres (Clonidine Hcl) 0.1 Mg Tab 0.1 Mg PO BID 05/15/15 Reported Novolog Flexpen (Insulin Aspart) 100 Units/Ml Inj 1 Dose SQ UD 04/01/15 Reported TAKES PER SLIDING SCALE Norvasc (Amlodipine Besylate) 10 Mg Tab 10 Mg PO QAM 09/08/13 Reported Physical Exam Vital Signs (Last 8hrs): Last 8 Hrs Date Time Temp Pulse Resp B/P (MAP) Pulse Ox O2 Delivery O2 Flow Rate FiO2 10/26/16 14:55 37.0 105 18 122/79 (93) 96 Nasal Cannula 2.0 10/26/16 14:27 95 28 147/72 98 10/26/16 13:43 104 28 126/71 96 Nasal Cannula 2.5 10/26/16 13:04 135 22 143/84 96 Room Air 10/26/16 13:00 96 Room Air 10/26/16 12:42 135 22 153/81 96 10/26/16 11:54 131 22 115/69 98 Nasal Cannula 2.5 10/26/16 11:07 123 10/26/16 11:05 123 16 130/77 98 Room Air 10/26/16 10:47 93 Nasal Cannula 2.5 10/26/16 10:41 90 Room Air 10/26/16 10:41 37.0 133 20 170/67 90 Room Air General Appearance: Alert and Oriented x3. NAD. Head: Normocephalic Atraumatic. Eyes: PERRLA, EOMI, conjunctiva and sclera clear Neck: Supple. No carotid bruits noted. No JVD. No HJD. Respiratory: Breath sounds clear to auscultation bilaterally. No w/r/r. Cardiovascular: Reg rate and rhythm. S1 and S2 noted. No murmurs, rubs, gallops. PMI non displace. Abdomen: Normal bowel sounds, soft nontender. no abdominal bruits. Extremities: No edema, no clubbing or cyanosis. distal pulses 2/4 bilaterally. Neuro: No focal deficits. Psychiatric: Normal affect. Data Last 24 Hours Test 10/26/16 10:10 10/26/16 16:17 10/26/16 16:24 White Blood Count 4.60 K/uL Red Blood Count 3.19 M/uL Hemoglobin 10.8 g/dL Hematocrit 34.6 % Mean Corpuscular Volume 108.5 fL Mean Corpuscular Hemoglobin 33.9 pg Mean Corpuscular Hemoglobin Concent 31.2 g/dl Platelet Count 126 K/uL Mean Platelet Volume 10.2 fL Neutrophils (%) (Auto) 81.3 % Lymphocytes (%) (Auto) 7.0 % Monocytes (%) (Auto) 9.8 % Eosinophils (%) (Auto) 1.5 % Basophils (%) (Auto) 0.2 % Neutrophils # (Auto) 3.74 K/uL Lymphocytes # (Auto) 0.32 K/uL Monocytes # (Auto) 0.45 K/uL Eosinophils # (Auto) 0.07 K/uL Basophils # (Auto) 0.01 K/uL RDW Standard Deviation 66.4 fL RDW Coefficient of Variation 17.0 % Immature Granulocyte % (Auto) 0.2 % Immature Granulocyte # (Auto) 0.01 K/uL Prothrombin Time 10.3 SECONDS Prothromb Time International Ratio 1.0 Activated Partial Thromboplast Time 27.5 SECONDS Partial Thromboplastin Ratio 1.1 Sodium Level 138 mmol/L Potassium Level 3.0 mmol/L Chloride Level 96 mmol/L Carbon Dioxide Level 33 mmol/L Anion Gap 9.0 mmol/L Blood Urea Nitrogen 22 mg/dl Creatinine 4.90 mg/dl Est Creatinine Clear Calc Drug Dose 12.6 ml/min Estimated GFR () 9.7 Estimated GFR (Non- 8.4 BUN/Creatinine Ratio 4.4 Random Glucose 138 mg/dl Calcium Level 9.2 mg/dl Magnesium Level 2.1 mg/dl Total Bilirubin 0.5 mg/dl Direct Bilirubin 0.2 mg/dl Aspartate Amino Transf (AST/SGOT) 14 U/L Alanine Aminotransferase (ALT/SGPT) 21 U/L Alkaline Phosphatase 87 U/L Total Creatine Kinase 38 U/L 29 U/L Creatine Kinase MB 0.9 ng/ml 0.9 ng/ml Creatine Kinase MB Ratio 2.4 3.1 Troponin I 0.028 ng/ml 0.035 ng/ml Total Protein 7.1 gm/dl Albumin 3.5 gm/dl Lipase 100 U/L Thyroid Stimulating Hormone (TSH) 1.020 uIu/ml Bedside Glucose 155 mg/dl EKG: atrial fibrillation with rvr Telemetry reviewed: afib now in the 80's. Assessment & Plan 1. paroxysmal atrial fibrillation pathophysiology and treatment options discussed at great length with patient counseled that given her significant mitral regurgitation and left atrial dilation do not believe her to be a good cardioversion candidate she agrees and will pursue rate control strategy discussed stroke risk, patient is now willing to take coumadin, will restart cont heparin bridge potassium low, will replete repeat level at 2000 tonight, maintain K of greater than 4 cont metoprolol and cardizem gtt for now, likely change cardizem to po in AM 2. moderate to severe mitral regurgitation follow 3. tobacco abuse
[2016-10-26] MEDS: CALCIUM ACETATE 667MG GELCAP PO SCH (17:23)
[2016-10-26] MEDS: INSULIN ASPART 100 UNITS/ML 3 ML PEN SC SCH ×2 (17:29→21:40)
[2016-10-26] MEDS: HEPARIN 25,000 UNIT/500ML D5W 500 ML IV PRN (17:31)
[2016-10-26] MEDS ORDERED: CEFEPIME IV 1,000 MG in DEXTROSE 5% 100ML 100 ML IV ONE (19:00)
[2016-10-26 19:21] VITALS: BP 151/74; PULSE 68; TEMP 37.4; O2SAT 94
[2016-10-26] MEDS: FLUTICASONE/SALMETEROL 250/50 (ADVAIR) 14 PUFF/1 INHALER INH SCH (19:39)
[2016-10-26] MEDS: CLONIDINE HCL 0.1 MG TAB PO SCH (19:39)
[2016-10-26] MEDS ORDERED: CEPHALEXIN 500 MG PO SCH (21:00)
[2016-10-26 23:49] VITALS: BP 121/72; PULSE 67; TEMP 36.9; O2SAT 97
[2016-10-27 01:07] LABS: PARTIAL THROMBOPLASTIN RATIO 1.4
[2016-10-27] MEDS ORDERED: HEPARIN IV BOLUS 4,500 UNIT in SYRINGE 0 ML IV ONE (01:30)
[2016-10-27] MEDS: HEPARIN 25,000 UNIT/500ML D5W 500 ML IV PRN ×2 (01:48→18:39)
[2016-10-27 03:35] VITALS: BP 147/74; PULSE 88; TEMP 37; O2SAT 96
[2016-10-27] MEDS: CALCIUM ACETATE 667MG GELCAP PO SCH ×3 (07:29→17:00)
[2016-10-27] MEDS: INSULIN ASPART 100 UNITS/ML 3 ML PEN SC SCH ×4 (07:41→21:13)
--- NOTE | 2016-10-27 07:52 | Clinical Documentation Query ---
CHECO Wetzel : CLINICAL DOCUMENTATION QUERY Patient is a 71 year old female admitted for atrial fibrillation with RVR and pneumonia. Pneumonia being treated empirically with Vancomycin and Cefepime (as she is a dialysis patient). Consider explicitly documenting the possible specific types of pneumonia that are empirically being treated as this directly and significantly impacts DRG assignment, severity of illness, and associated risk of mortality. Thank you. In your clinical opinion is this patient being managed for: ( ) Pneumonia due to (possible) MRSA and/or gram negative bacteria ( ) Other explanation of clinical findings (Please Explain) ( ) Unable to determine (Please Define) ( ) Need to Discuss ( ) Not Agree The medical record reflects the following clinical findings, treatment, and risk factors. Clinical Indicators: As above Treatment:Pneumonia being treated empirically with Vancomycin and Cefepime Risk Factors: Age, ESRD, frequent and recent hospitalization. Please clarify and document your clinical opinion in the progress notes and discharge summary. Terms such as "probable", "suspected", "likely", "questionable", "possible", or "still to be ruled out" are acceptable. IF IN AGREEMENT, YOU MUST DOCUMENT ABOVE DIAGNOSTIC STATEMENT IN DAILY PROGRESS NOTES AND DISCHARGE SUMMARY. This document is not part of the patient's record. Thank You, Alok Rosas, RN [phone]
[2016-10-27 08:05] VITALS: BP 129/72; PULSE 69; TEMP 37; O2SAT 99
--- NOTE | 2016-10-27 08:12 | ECHOCARDIOGRAM REPORT ---
*NOTICE TO RECEIVING DEMOCRAT AGENCY This information is strictly Confidential and protected under [place] law. [place] law prohibits you from making any further disclosure of this information unless further disclosure is expressly permitted by the written consent of the person to whom it pertains or is authorized by law. A general authorization for the release of medical or other information is not sufficient for this purpose. Hospital accepts no responsibility if the information is made available to any other person, INCLUDING THE PATIENT. Interpretation Summary * Name: VALERIA URIAS Study Date: 10/26/2016 03:30 PM BP: 143/84 mmHg * Patient Location: C.2T\S\E218\S\1 HR: 102 * : 1945 (M/d/yyyy) Gender: Female Height: 66 in * Age: 71 yrs Ethnicity: CA Weight: 210 lb * Ordering Physician: Delphine Guevara * Referring Physician: Self, Referred * Performed By: Xi Taylor RDCS * * Reason For Study: A-FIB * BSA: 2.0 m2 * -- Conclusions -- * No significant change compared to previous study of 01/14/16. * Normal LV chamber size with moderate concentric LVH. * Hyperdynamic LV systolic function, EF >70%. * Aortic valve sclerosis moderate, without significant aortic valvular stenosis. * There is heavy focal calcification of the posterior mitral valve leaflet and annulus. Moderate to severe mitral regurgitation. * Moderate left atrial enlargement. Procedure Details * A contrast injection of Definity was performed to improve assessment of LV function. * Contrast was injected into an intravenous site in the right arm. * One vial of Definity ultrasound contrast was diluted in normal saline to a total volume of 10 ml. A total of '3' ml of solution was administered during imaging. * Lot # [id number] of Definity utilized for procedure. * Expiration date 1AUG18. * The attending nurse who injected the contrast agent was Yasemin Hi RN. Left Ventricle * The left ventricle is normal in size. * There is moderate concentric left ventricular hypertrophy. * Ejection Fraction = >70 %. * The left ventricle is hyperdynamic. * Left ventricular systolic function is normal. * The left ventricular wall motion is normal. Right Ventricle * The right ventricular cavity size is normal (basal dimension <4.2 cm in right ventricular apical 4-chamber view). * The right ventricular systolic function is normal as assessed by tricuspid annular plane systolic excursion (TAPSE) (normal >1.5 cm). Atria * The left atrium is moderately dilated. * Right atrium not well visualized. * There is no evidence of atrial septal defect, but resolution does not allow assessment for a patent foramen ovale. Mitral Valve * There is heavy focal calcification of the posterior mitral valve leaflet and annulus. * There is no mitral valve stenosis. * There is moderate to severe mitral regurgitation. Tricuspid Valve * The tricuspid valve is normal in structure and function. Aortic Valve * The aortic valve is trileaflet. * Aortic valve sclerosis moderate, without significant aortic valvular stenosis. Pulmonic Valve * The pulmonary valve is not well seen, but the Doppler examination is normal without significant regurgitation or stenosis. Great Vessels * The aortic root is normal size. Pericardium/Pleural * Small pericardial effusion. * A loculated pericardial effusion is noted. MMode 2D Measurements and Calculations IVSd 1.2 cm LVIDd 6.3 cm LVIDs 2.8 cm LVPWd 1.1 cm IVS/LVPW 1.1 FS 55.3 % EDV(Teich) 203.9 ml ESV(Teich) 30.4 ml EF(Teich) 85.1 % EDV(cubed) 254.4 ml ESV(cubed) 22.8 ml EF(cubed) 91.1 % LV mass(C)d 325.2 grams LV mass(C)dI 159.3 grams/m\S\2 SV(Teich) 173.4 ml SI(Teich) 84.9 ml/m\S\2 SV(cubed) 231.7 ml SI(cubed) 113.5 ml/m\S\2 Ao root diam 2.9 cm Ao root area 6.8 cm\S\2 LVOT diam 2.0 cm LVOT area 3.0 cm\S\2 EDV(MOD-sp4) 68.8 ml ESV(MOD-sp4) 24.3 ml EF(MOD-sp4) 64.7 % EDV(MOD-sp2) 51.4 ml ESV(MOD-sp2) 25.5 ml EF(MOD-sp2) 50.4 % SV(MOD-sp4) 44.5 ml SI(MOD-sp4) 21.8 ml/m\S\2 SV(MOD-sp2) 25.9 ml SI(MOD-sp2) 12.7 ml/m\S\2 Doppler Measurements and Calculations Ao V2 max 171.6 cm/sec Ao max PG 11.8 mmHg Ao max PG (full) 7.3 mmHg GREGORIO(V,A) 1.9 cm\S\2 GREGORIO(V,D) 1.9 cm\S\2 LV V1 max PG 4.5 mmHg LV V1 mean PG 2.2 mmHg LV V1 max 106.3 cm/sec LV V1 mean 66.1 cm/sec LV V1 VTI 17.1 cm SV(LVOT) 51.1 ml SI(LVOT) 25.0 ml/m\S\2
[2016-10-27] MEDS ORDERED: AZITHROMYCIN 250 MG TAB PO ONE (08:30)
[2016-10-27 08:32] LABS: HEMATOCRIT 32.5 % (37-47); MEAN CELL VOLUME 109.8 fL (80-100); MEAN CORPUSCULAR HEMOGLOBIN 33.4 pg (25-34); MEAN CORPUSCULAR HGB CONC 30.5 g/dl (32-36); MEAN PLATELET VOLUME 9.8 fL (7.4-10.4); PLATELET COUNT 126 K/uL (130-400); RED BLOOD COUNT 2.96 M/uL (4.2-5.4); WHITE BLOOD COUNT 4.46 K/uL (4.8-10.8)
[2016-10-27] MEDS: FLUTICASONE/SALMETEROL 250/50 (ADVAIR) 14 PUFF/1 INHALER INH SCH ×2 (08:35→21:11)
[2016-10-27] MEDS: CLONIDINE HCL 0.1 MG TAB PO SCH ×2 (08:36→21:16)
[2016-10-27] MEDS: PrednisoLONE ACET 1% OP SUSP 5 ML BTL OPL SCH (08:36)
[2016-10-27] MEDS: FUROSEMIDE 40 MG TAB PO SCH (08:37)
[2016-10-27] MEDS: AMLODIPINE BESYLATE 5 MG TAB PO SCH (08:38)
[2016-10-27] MEDS: LOSARTAN POTASSIUM 50 MG TAB PO SCH (08:38)
[2016-10-27] MEDS: NEPHROCAPS PO SCH (08:38)
[2016-10-27] MEDS: INSULIN GLARGINE SOLOSTAR 100 UNITS/ML 3 ML PEN SC SCH (08:42)
--- NOTE | 2016-10-27 09:03 | NEPHROLOGY CONSULTATION ---
DATE OF CONSULTATION: 10/27/2016 ATTENDING OF RECORD: Dr. Thakur. REASON FOR CONSULTATION: End-stage renal disease. HISTORY OF PRESENT ILLNESS: This is a 71-year-old female, who dialyzes at the [facility] on Tuesdays, , and Saturdays. The patient does have a history of paroxysmal AFib and has been off Coumadin secondary to GI bleed in April of this year. She also has underlying COPD, on chronic oxygen, who still actively smokes, has type 2 diabetes and hypertension. The patient was nearing the end of her dialysis treatment yesterday and her pulse started to go up into the 120s to 130s and she did not feel well. During her GI bleed in April, her INR was supratherapeutic and she did require multiple units of blood. The patient has been started on a heparin drip here as well as dilt drip for rate control. The patient is more comfortable at this time. PAST MEDICAL HISTORY: Paroxysmal AFib; end-stage renal disease on dialysis Tuesdays, , and Saturdays; anemia of end-stage renal disease; COPD on chronic oxygen; type 2 diabetes; hyperlipidemia; and hypertension. PAST SURGICAL HISTORY: Cataract surgery, appendectomy, cholecystectomy, hysterectomy, and fistula placement. FAMILY HISTORY: Significant for diabetes. SOCIAL HISTORY: Active smoker. No alcohol and no drugs. Is and lives alone. CURRENT MEDICATIONS: Vitamin D 50,000 units monthly, Coumadin 5 mg daily, Norvasc 10 mg daily, Lasix 40 mg daily, Lantus 26 units subQ daily, Cozaar 100 mg daily, Valtrex 1 gram p.o. daily, Nephrocaps daily, clonidine 0.1 mg p.o. b.i.d., Advair inhaler twice a day, PhosLo 2 p.o. t.i.d. with meals, heparin drip, and diltiazem drip. REVIEW OF SYSTEMS: No fevers or chills. No headaches. No blurry vision. Chronic shortness of breath. Positive cough. No chest pain, but was feeling palpitations over the weekend when she laid down. No nausea or vomiting. No diarrhea or constipation. No dysuria. No rash or itching. All other review of systems otherwise negative. PHYSICAL EXAMINATION: VITAL SIGNS: Temperature 37, pulse 69, respiratory rate 16, blood pressure 129/72 and satting 99% on 2-1/2 liters. GENERAL: Awake, alert, and oriented x3. EYES: No scleral icterus. ENT: Moist mucous membranes. NECK: Supple. PULMONARY: Decreased breath sounds at the bases. CARDIAC: Irregular. ABDOMEN: Bowel sounds positive. Soft and nontender. EXTREMITIES: Minimal edema. NEUROLOGICALLY: Nonfocal. DERMATOLOGIC: No rash or ulcers noted. LABORATORIES: Pending for this morning. On October 26, white count was 4, H&H 10 and 34, and platelet count 126. Troponin 0.045. Potassium 4.2. BNP is pending. Creatinine was 4.9 yesterday. BUN 22, calcium 9.2, and mag 2.1. LFTs are normal. TSH normal. INR was 1. Chest x-ray shows minimal parenchymal infiltrate, left base. Respiratory motion artifact. IMPRESSION AND PLAN: 1. End-stage renal disease. No indication for emergent dialysis today. We will continue dialysis on regular dialysis days of Tuesdays, , and Saturdays. Plan next dialysis treatment tomorrow. 2. Anemia of renal failure. Hemoglobin levels are in the 10-11 range. We will continue Procrit to keeping the hemoglobin level goal at 10-11. 3. Renal osteodystrophy. The patient is on phosphate binders, PhosLo 2 with meals. We will follow phosphorus levels intermittently while here in the hospital. I appreciate the consultation. OSEAS
[2016-10-27 09:11] LABS: CALCIUM 8.6 mg/dl (8.5-10.1); CREATININE 8.8 mg/dl (0.60-1.20); MAGNESIUM 2.1 mg/dl (1.8-2.4); POTASSIUM 4.5 mmol/L (3.5-5.1)
[2016-10-27] MEDS: LACTOBACILLUS ACIDOPHILUS (FLORANEX) TAB PO SCH ×2 (11:42→17:01)
[2016-10-27 12:17] VITALS: BP 146/71; PULSE 78; TEMP 36.9; O2SAT 96
[2016-10-27 15:24] VITALS: BP 128/80; PULSE 56; TEMP 36.9; O2SAT 96
--- NOTE | 2016-10-27 16:38 | Progress Note ---
Internal Med Progress Note Date of Service: Oct 27, 2016. Provider Documentation: SUBJECTIVE: resting comfortably denies chest pain no palpitations denies sob afebrile eating ok OBJECTIVE: Vital Signs-as noted below Exam: General-alert and oriented. Not in distress ENT-Normal hearing Neck-no neck masses supple Lungs-cta b/l no wheezing no crackles present Heart-s1 and s2 heard irregular rate and rhythm no murmurs Abdomen-soft bowel sounds present non tender no distension Extremities- no erythema Neuro-alert and oriented moves extremities Lab data as noted below. ASSESSMENT & PLAN: ATRIAL FIBRILLATION WITH RVR Sent to ER after AF RVR noted at dialysis; hx PAF; off Coumadin since 04/2016 when admitted for GIB Possibly triggered by infection (pneumonia)? 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 COPD/ CHRONIC RESPIRATORY FAILURE stable on home meds PRN Xopenex/ Atrovent nebs On Advair and Incruse Ellipta inhalers On chronic oxygen 2.5 L NC continuous Smoking cessation advised HYPERTENSION BP is stable On amlodipine, clonidine, furosemide, losartan will monitor DM TYPE 2 Continue home Lantus Novolog sliding scale RECENT LEFT HAND INFECTED WOUND/ CELLULITIS Improved with outpatient Keflex course- wound still present but no sign of cellulitis CHRONIC ANEMIA Hg in 10's, stable from baseline DVT PROPHYLAXIS On heparin drip FULL CODE DISPOSITION monitor in tele pt/ot prior to discharge Follows with Dr. Armando for primary care Vital Signs: Date Time Temp Pulse Resp B/P (MAP) Pulse Ox O2 Delivery O2 Flow Rate FiO2 10/27/16 16:00 Nasal Cannula 2.5 10/27/16 15:24 36.9 56 18 128/80 (96) 96 Nasal Cannula 2.5 10/27/16 12:17 36.9 78 18 146/71 (96) 96 10/27/16 12:00 Nasal Cannula 2.5 10/27/16 08:05 37.0 69 16 129/72 (91) 99 10/27/16 08:00 Nasal Cannula 2.5 10/27/16 04:00 Nasal Cannula 2.5 10/27/16 03:35 37.0 88 20 147/74 (98) 96 Nasal Cannula 2.0 10/26/16 23:59 Nasal Cannula 2.5 10/26/16 23:49 36.9 67 17 121/72 (88) 97 Nasal Cannula 2.0 10/26/16 20:00 Nasal Cannula 2.5 10/26/16 19:21 37.4 68 18 151/74 (99) 94 Nasal Cannula 2.5 Lab Results: Results Past 24 Hours Test 10/26/16 20:10 10/26/16 21:06 10/27/16 00:34 10/27/16 06:31 Range/Units Bedside Glucose 235 154 70-90 mg/dl Potassium Level 4.2 3.5-5.1 mmol/L Total Creatine Kinase 27 26-192 U/L Creatine Kinase MB < 0.5 0.5-3.6 ng/ml Creatine Kinase MB Ratio 0-3.0 Troponin I 0.045 0-0.045 ng/ml Activated Partial Thromboplast Time 35.5 21.0-31.0 SECONDS Partial Thromboplastin Ratio 1.4 Test 10/27/16 08:16 10/27/16 11:13 Range/Units White Blood Count 4.46 4.8-10.8 K/uL Red Blood Count 2.96 4.2-5.4 M/uL Hemoglobin 9.9 12.0-16.0 g/dL Hematocrit 32.5 37-47 % Mean Corpuscular Volume 109.8 80-100 fL Mean Corpuscular Hemoglobin 33.4 25-34 pg Mean Corpuscular Hemoglobin Concent 30.5 32-36 g/dl RDW Standard Deviation 69.4 36.4-46.3 fL RDW Coefficient of Variation 17.3 11.5-14.5 % Platelet Count 126 130-400 K/uL Mean Platelet Volume 9.8 7.4-10.4 fL Activated Partial Thromboplast Time 53.2 21.0-31.0 SECONDS Partial Thromboplastin Ratio 2.0 Sodium Level 136 136-145 mmol/L Potassium Level 4.5 3.5-5.1 mmol/L Chloride Level 98 98-107 mmol/L Carbon Dioxide Level 28 21-32 mmol/L Anion Gap 10.0 3-11 mmol/L Blood Urea Nitrogen 35 7-18 mg/dl Creatinine 8.80 0.60-1.20 mg/dl Est Creatinine Clear Calc Drug Dose 7.1 ml/min Estimated GFR () 4.8 Estimated GFR (Non- 4.1 BUN/Creatinine Ratio 4.0 10-20 Random Glucose 231 70-99 mg/dl Calcium Level 8.6 8.5-10.1 mg/dl Magnesium Level 2.1 1.8-2.4 mg/dl Bedside Glucose 180 70-90 mg/dl
[2016-10-27] MEDS: WARFARIN SOD 5 MG TAB PO SCH (17:00)
[2016-10-27] MEDS ORDERED: CEFEPIME IV 500 MG in DEXTROSE 5% 100ML 100 ML IV SCH (18:00)
[2016-10-27 19:24] VITALS: BP 129/75; PULSE 92; TEMP 36.8; O2SAT 98
[2016-10-27 23:12] VITALS: BP 111/66; PULSE 108; TEMP 36.8; O2SAT 99
[2016-10-28] VITALS (19 sets, daily range): BP systolic 100–147; BP diastolic 47–72; PULSE 70–100; TEMP 36.5–36.9; O2SAT 95–98
[2016-10-28 06:37] LABS: PARTIAL THROMBOPLASTIN RATIO 1.3; PROTHROMBIN TIME (PATIENT) 10.7 SECONDS (9.0-12.0)
[2016-10-28] MEDS ORDERED: EPOETIN ALFA 10,000 UNITS/ML VIAL IV. SCH (07:00)
[2016-10-28] MEDS: CALCIUM ACETATE 667MG GELCAP PO SCH ×3 (07:30→16:47)
[2016-10-28] MEDS ORDERED: HEPARIN IV BOLUS 4,500 UNIT in SYRINGE 0 ML IV ONE (07:30)
[2016-10-28] MEDS: LACTOBACILLUS ACIDOPHILUS (FLORANEX) TAB PO SCH ×3 (07:30→15:49)
[2016-10-28] MEDS: LIDOCAINE/PRILOCAINE 2.5% EA CRM EXT SCH (07:40)
[2016-10-28] MEDS: INSULIN ASPART 100 UNITS/ML 3 ML PEN SC SCH ×4 (07:45→21:03)
[2016-10-28] MEDS: INSULIN GLARGINE SOLOSTAR 100 UNITS/ML 3 ML PEN SC SCH (07:46)
[2016-10-28] MEDS: HEPARIN 25,000 UNIT/500ML D5W 500 ML IV PRN ×3 (07:47→19:13)
[2016-10-28 08:06] LABS: BUN/CREATININE RATIO 4.8 (10-20); CALCIUM 8.9 mg/dl (8.5-10.1); POTASSIUM 4.8 mmol/L (3.5-5.1)
[2016-10-28] MEDS ORDERED: AZITHROMYCIN 250 MG TAB PO SCH (09:00)
[2016-10-28] MEDS ORDERED: LEVOFLOXACIN CONSULT ACTIVE PRN (09:15)
[2016-10-28] MEDS ORDERED: LEVOFLOXACIN 750 MG TAB PO ONE (11:00)
[2016-10-28] MEDS: DOXYCYCLINE HYCLATE 100 MG CAP PO SCH ×2 (11:50→21:05)
[2016-10-28] MEDS: FUROSEMIDE 40 MG TAB PO SCH (11:51)
[2016-10-28] MEDS: LOSARTAN POTASSIUM 50 MG TAB PO SCH (11:51)
[2016-10-28] MEDS: CLONIDINE HCL 0.1 MG TAB PO SCH ×2 (11:51→21:05)
[2016-10-28] MEDS: AMLODIPINE BESYLATE 5 MG TAB PO SCH (11:52)
[2016-10-28] MEDS: FLUTICASONE/SALMETEROL 250/50 (ADVAIR) 14 PUFF/1 INHALER INH SCH ×2 (11:52→21:03)
[2016-10-28] MEDS: PrednisoLONE ACET 1% OP SUSP 5 ML BTL OPL SCH (11:52)
[2016-10-28] MEDS: NEPHROCAPS PO SCH (11:52)
--- NOTE | 2016-10-28 13:25 | Cardiology Follow-Up ---
Subjective Subjective Date of Service: Oct 27, 2016. Pt evaluation today including: conversation w/ patient, physical exam, chart review, lab review, review of studies, review of inpatient medication list Additional Details: Late entry for 10/27/16. Pt seen and examined, oob in chair. States that she feels fine. Denies cp, sob, palpitations, lightheadedness or dizziness. tele reviewed: atrial fibrillation, rate controlled Problem List Medical Problems: (1) Chest pain Status: Acute (2) CHF (congestive heart failure) Status: Acute (3) CHF (congestive heart failure) Status: Acute (4) COPD (chronic obstructive pulmonary disease) Status: Acute (5) COPD exacerbation Status: Acute (6) End stage renal disease Status: Acute (7) End stage renal disease on dialysis Status: Acute (8) GI bleed Status: Acute (9) Hemoptysis Status: Acute (10) Hypoxemia Status: Acute (11) Hypoxia Status: Acute (12) Left lower lobe pneumonia Status: Acute (13) PNA (pneumonia) Status: Acute (14) Pneumonia Status: Acute (15) Pulmonary congestion Status: Acute (16) Shortness of breath Status: Acute (17) Supratherapeutic INR Status: Acute Review of Systems Respiratory: No see HPI, No cough, No sputum, No wheezing, No shortness of breath, No dyspnea on exertion, No dyspnea at rest, No hemoptysis, No problem reported Cardiac: No see HPI, No chest pain, No orthopnea, No PND, No edema, No claudication, No palpitations, No problem reported Endo: + fatigue Objective Vital Signs Last Vital Signs Documentation Date Time Temp Pulse Resp B/P (MAP) Pulse Ox O2 Delivery O2 Flow Rate FiO2 10/28/16 12:24 36.9 92 123/59 (80) 10/28/16 12:00 Nasal Cannula 2.5 10/28/16 11:38 18 95 Physical Exam: General Appearance: WD/WN, no apparent distress Eyes: bilateral eyes normal inspection, bilateral eyes PERRL, bilateral eyes EOMI ENT: normal ENT inspection, hearing grossly normal, pharynx normal Neck: supple, no adenopathy, thyroid normal, no JVD, no carotid bruits, trachea midline Respiratory/Chest: chest non-tender, lungs clear, normal breath sounds, no respiratory distress, no accessory muscle use Cardiovascular: no edema, no JVD, no murmur, + irregularly irregular Abdomen: normal bowel sounds, non tender, soft, no organomegaly, no pulsatile mass Extremities: normal inspection, no pedal edema, no calf tenderness Neurologic/Psychiatric: health care liaison II-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 paroxysmal atrial fibrillation pathophysiology and treatment options discussed at great length with patient counseled that given her significant mitral regurgitation and left atrial dilation do not believe her to be a good cardioversion candidate she agrees and will pursue rate control strategy discussed stroke risk, patient is now willing to take coumadin, will restart cont heparin bridge rates controlled already on amlodipine, so, if rate control necessary can add beta mariana but will hold for now 2. moderate to severe mitral regurgitation follow 3. tobacco abuse
--- NOTE | 2016-10-28 14:52 | Progress Note ---
Internal Med Progress Note Date of Service: Oct 28, 2016. Provider Documentation: SUBJECTIVE: having dialysis denies sob but has cough no chest pain 'no palpitations afebrile OBJECTIVE: Vital Signs-as noted below Exam: General-alert and oriented. Not in distress ENT-Normal hearing Neck-no neck masses supple Lungs-cta b/l no wheezing no crackles present Heart-s1 and s2 heard irregular rate and rhythm no murmurs Abdomen-soft bowel sounds present non tender no distension Extremities- no erythema Neuro-alert and oriented moves extremities Lab data as noted below. ASSESSMENT & PLAN: ATRIAL FIBRILLATION WITH RVR Sent to ER after AF RVR noted at dialysis; hx PAF; off Coumadin since 04/2016 when admitted for GIB Possibly triggered by infection (pneumonia)? TSH normal serial Ce negative echo no change from previous was on cardizem drip which is stooped now as rates are under control on iv heparin seen by cardiology and appreciate inputs continue current meds plan to start on po Lopressor if rates go up HCAP possible gm negative, mrsa pneumonia? 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 COPD/ CHRONIC RESPIRATORY FAILURE stable on home meds PRN Xopenex/ Atrovent nebs On Advair and Incruse Ellipta inhalers On chronic oxygen 2.5 L NC continuous Smoking cessation advised Stable conditions: HYPERTENSION BP is stable On amlodipine, clonidine, furosemide, losartan will monitor DM TYPE 2 Continue home Lantus Novolog sliding scale RECENT LEFT HAND INFECTED WOUND/ CELLULITIS Improved with outpatient Keflex course- wound still present but no sign of cellulitis CHRONIC ANEMIA Hg in 10's, stable from baseline DVT PROPHYLAXIS On heparin drip FULL CODE DISPOSITION monitor in tele pt/ot prior to discharge Follows with Dr. Armando for primary care Vital Signs: Date Time Temp Pulse Resp B/P (MAP) Pulse Ox O2 Delivery O2 Flow Rate FiO2 10/28/16 12:24 36.9 92 123/59 (80) 10/28/16 12:00 Nasal Cannula 2.5 10/28/16 11:38 36.7 76 18 146/66 (92) 95 10/28/16 11:15 70 147/51 10/28/16 11:00 76 116/53 10/28/16 10:45 96 124/57 10/28/16 10:30 92 126/63 10/28/16 10:15 86 117/60 10/28/16 10:00 93 126/58 10/28/16 09:45 94 113/49 10/28/16 09:30 86 111/60 10/28/16 09:15 86 116/47 10/28/16 09:00 90 116/51 10/28/16 08:45 71 124/57 10/28/16 08:40 96 100/53 10/28/16 08:30 36.9 96 117/61 (79) 10/28/16 08:00 Nasal Cannula 2.5 10/28/16 07:55 36.5 100 20 138/64 (88) 96 10/28/16 04:11 36.6 82 19 121/72 (88) 97 Nasal Cannula 2.5 10/28/16 04:00 Nasal Cannula 2.5 10/28/16 00:00 Nasal Cannula 2.5 10/27/16 23:12 36.8 108 18 111/66 (81) 99 Nasal Cannula 2.5 10/27/16 20:00 Nasal Cannula 2.5 10/27/16 19:24 36.8 92 18 129/75 (93) 98 Nasal Cannula 2.5 10/27/16 16:00 Nasal Cannula 2.5 10/27/16 15:24 36.9 56 18 128/80 (96) 96 Nasal Cannula 2.5 Lab Results: Results Past 24 Hours Test 10/27/16 16:11 10/27/16 20:01 10/28/16 06:04 10/28/16 06:16 Range/Units Bedside Glucose 169 108 70-90 mg/dl Creatinine 11.00 0.60-1.20 mg/dl Est Creatinine Clear Calc Drug Dose 5.7 ml/min Estimated GFR () 3.7 Estimated GFR (Non- 3.2 Random Vancomycin Level 13.3 mcg/ml Prothrombin Time 10.7 9.0-12.0 SECONDS Prothromb Time International Ratio 1.0 0.9-1.1 Activated Partial Thromboplast Time 34.5 21.0-31.0 SECONDS Partial Thromboplastin Ratio 1.3 Test 10/28/16 06:34 10/28/16 06:50 10/28/16 11:19 10/28/16 14:39 Range/Units Bedside Glucose 122 90 70-90 mg/dl Sodium Level 136 136-145 mmol/L Potassium Level 4.8 3.5-5.1 mmol/L Chloride Level 97 98-107 mmol/L Carbon Dioxide Level 29 21-32 mmol/L Anion Gap 10.0 3-11 mmol/L Blood Urea Nitrogen 53 7-18 mg/dl Creatinine 11.00 0.60-1.20 mg/dl Est Creatinine Clear Calc Drug Dose 5.7 ml/min Estimated GFR () 3.7 Estimated GFR (Non- 3.2 BUN/Creatinine Ratio 4.8 10-20 Random Glucose 123 70-99 mg/dl Calcium Level 8.9 8.5-10.1 mg/dl
[2016-10-28] MEDS ORDERED: HEPARIN IV BOLUS 4,500 UNIT in SYRINGE 0 ML IV STA (15:13)
[2016-10-28] MEDS: WARFARIN SOD 5 MG TAB PO SCH (15:48)
--- NOTE | 2016-10-28 16:12 | Nephrology Progress Note ---
Nephrology Progress Note Date of Service: Oct 28, 2016. Subjective 71 yo female with esrd who has afib and currently undergoing anticoagulation. pt is comfortable. did have dialysis today and underwent cramping towards end of dialysis. removed about 1.8 liters today. Objective Date Time Temp Pulse Resp B/P (MAP) Pulse Ox O2 Delivery O2 Flow Rate FiO2 10/28/16 16:00 Nasal Cannula 2.0 10/28/16 15:40 36.6 77 18 139/65 (89) 95 10/28/16 12:24 36.9 92 123/59 (80) 10/28/16 12:00 Nasal Cannula 2.5 10/28/16 11:38 36.7 76 18 146/66 (92) 95 10/28/16 11:15 70 147/51 10/28/16 11:00 76 116/53 10/28/16 10:45 96 124/57 10/28/16 10:30 92 126/63 10/28/16 10:15 86 117/60 10/28/16 10:00 93 126/58 10/28/16 09:45 94 113/49 10/28/16 09:30 86 111/60 10/28/16 09:15 86 116/47 10/28/16 09:00 90 116/51 10/28/16 08:45 71 124/57 10/28/16 08:40 96 100/53 10/28/16 08:30 36.9 96 117/61 (79) 10/28/16 08:00 Nasal Cannula 2.5 10/28/16 07:55 36.5 100 20 138/64 (88) 96 10/28/16 04:11 36.6 82 19 121/72 (88) 97 Nasal Cannula 2.5 10/28/16 04:00 Nasal Cannula 2.5 10/28/16 00:00 Nasal Cannula 2.5 10/27/16 23:12 36.8 108 18 111/66 (81) 99 Nasal Cannula 2.5 10/27/16 20:00 Nasal Cannula 2.5 10/27/16 19:24 36.8 92 18 129/75 (93) 98 Nasal Cannula 2.5 Physical Exam: General-aaox3 Eyes-no scleral icterus ENT-mmm Neck-supple Lungs-rales at right base Heart-irregularly irregular Abdomen-bs+ s/nt/nd Extremities-no c/c/e Neuro-nonfocal Current Inpatient Medications Medications (Trade) Dose Ordered Sig/Joan Route Start Time Stop Time Status Last Admin Dose Admin Acetaminophen (Tylenol Tab) 650 mg Q4H PRN PO 10/26/16 13:00 11/25/16 12:59 Ondansetron HCl (Zofran Inj) 4 mg Q6H PRN IV 10/26/16 13:00 11/25/16 12:59 Diltiazem HCl 125 mg/Dextrose 125 ml @ 0 mls/hr Q0M PRN IV 10/26/16 13:15 11/25/16 13:14 10/26/16 21:40 10 MLS/HR Amlodipine Besylate (Norvasc Tab) 10 mg QAM PO 10/27/16 09:00 11/26/16 08:59 10/28/16 11:52 10 MG Calcium Acetate (Phoslo Cap) 1,334 mg TIDM PO 10/26/16 16:45 11/25/16 17:59 10/28/16 11:51 1,334 MG Clonidine HCl (Catapres Tab) 0.1 mg BID PO 10/26/16 21:00 11/25/16 20:59 10/28/16 11:51 0.1 MG Miscellaneous Information (Order Awaiting Action) 1 ea QS N/A 10/26/16 16:00 11/25/16 15:59 Ergocalciferol (Vitamin D Cap) 50,000 interunit Q30D@0900 PO 11/03/16 09:00 12/03/16 08:59 Salmeterol Xinafoate/ Fluticasone (Advair Diskus 250/50 Inh) 1 puff BID INH 10/26/16 21:00 11/25/16 20:59 10/28/16 11:52 1 PUFF Furosemide (Lasix Tab) 40 mg DAILY PO 10/27/16 09:00 11/26/16 08:59 10/28/16 11:51 40 MG Insulin Glargine (Lantus Solostar Pen) 26 units QAM SC 10/27/16 09:00 11/26/16 08:59 10/28/16 07:46 26 UNITS Lidocaine/ Prilocaine (Emla 2.5% Crm) 1 ea TuThSa@0900 EXT 10/28/16 09:00 11/27/16 08:59 10/28/16 07:40 1 EA Losartan Potassium (coZAAR TAB) 100 mg DAILY PO 10/27/16 09:00 11/26/16 08:59 10/28/16 11:51 100 MG Prednisolone Acetate (Pred Forte 1% Oph Susp) 1 drops DAILY OPL 10/27/16 09:00 11/26/16 08:59 10/28/16 11:52 1 DROPS Valacyclovir HCl (Valtrex Tab) 1,000 mg DAILY PO 10/27/16 09:00 11/26/16 08:59 10/28/16 11:51 1,000 MG Vitamin B Complex/ Vit C/Folic Acid (Nephrocaps) 1 cap DAILY PO 10/27/16 09:00 11/26/16 08:59 10/28/16 11:52 1 CAP Miscellaneous Information (Order Awaiting Action) 1 ea QS N/A 10/26/16 16:00 11/25/16 15:59 Insulin Aspart (novoLOG ASPART) SLIDING SCALE If C... ACHS SC 10/26/16 16:00 11/25/16 15:59 10/28/16 11:50 3 UNITS Glucose (Glucose 40% Gel) 15-30 GRAMS 15 GRAMS... UD PRN PO 10/26/16 13:45 11/25/16 13:44 Glucose (Glucose Chew Tab) 4-8 Tablets 4 Tabl... UD PRN PO 10/26/16 13:45 11/25/16 13:44 Dextrose (Dextrose 50% 50ML Syringe) 25-50ML OF 50% DW IV FOR... UD PRN IV 10/26/16 13:45 11/25/16 13:44 Glucagon (Glucagon Inj) 1 mg UD PRN SQ 10/26/16 13:45 11/25/16 13:44 Ipratropium [place] (Atrovent 0.02% 0.5MG/2.5ML Neb) 0.5 mg Q4H PRN INH 10/26/16 15:30 11/25/16 15:29 Levalbuterol (Xopenex 1.25MG/ 0.5ML Neb) 1.25 mg Q4H PRN INH 10/26/16 15:30 11/25/16 15:29 Warfarin Sodium (Coumadin Tab) 5 mg DAILY@16 PO 10/27/16 16:00 11/26/16 15:59 10/28/16 15:48 5 MG Heparin Sodium/ Dextrose 500 ml @ 27 mls/hr [id number] PRN IV 10/26/16 16:45 11/25/16 16:44 10/28/16 15:47 27 MLS/HR Lactobacillus Acidophilus (Floranex Tab) 4 tab TIDM PO 10/27/16 11:30 11/26/16 11:29 10/28/16 15:49 4 TAB Epoetin [place] (Procrit Inj) 10,000 units TODAY@0700 IV. 10/28/16 07:00 10/28/16 23:59 10/28/16 10:33 10,000 UNITS Doxycycline Hyclate (Vibramycin Cap) 100 mg BID PO 10/28/16 09:00 11/04/16 08:59 10/28/16 11:50 100 MG Levofloxacin (Consult) 1 ea UD PRN N/A 10/28/16 09:15 11/27/16 09:14 Levofloxacin (Levaquin Tab) 500 mg Q48H PO 10/30/16 11:00 11/04/16 23:59 Last 24 Hours Test 10/27/16 16:11 10/27/16 20:01 10/28/16 06:04 10/28/16 06:16 Bedside Glucose 169 mg/dl 108 mg/dl Creatinine 11.00 mg/dl Est Creatinine Clear Calc Drug Dose 5.7 ml/min Estimated GFR () 3.7 Estimated GFR (Non- 3.2 Random Vancomycin Level 13.3 mcg/ml Prothrombin Time 10.7 SECONDS Prothromb Time International Ratio 1.0 Activated Partial Thromboplast Time 34.5 SECONDS Partial Thromboplastin Ratio 1.3 Test 10/28/16 06:34 10/28/16 06:50 10/28/16 11:19 10/28/16 14:39 Bedside Glucose 122 mg/dl 90 mg/dl Sodium Level 136 mmol/L Potassium Level 4.8 mmol/L Chloride Level 97 mmol/L Carbon Dioxide Level 29 mmol/L Anion Gap 10.0 mmol/L Blood Urea Nitrogen 53 mg/dl Creatinine 11.00 mg/dl Est Creatinine Clear Calc Drug Dose 5.7 ml/min Estimated GFR () 3.7 Estimated GFR (Non- 3.2 BUN/Creatinine Ratio 4.8 Random Glucose 123 mg/dl Calcium Level 8.9 mg/dl Activated Partial Thromboplast Time 26.6 SECONDS Partial Thromboplastin Ratio 1.0 Date/Time Source Procedure Growth Status 10/28/16 14:45 Nasal MRSA DNA Surveillance Screen Pending Received Assessment & Plan ESRD-undergoing dialysis t-h-s. next dialysis treatment for tuesday. volume status is appropriate. on a 2k bath. Anemia of Renal Failure-on procrit with goal hg of 10 to 11. DELILAH: on phoslo and continue current medications.
[2016-10-28 21:54] LABS: PARTIAL THROMBOPLASTIN RATIO 1.6
[2016-10-28] MEDS ORDERED: HEPARIN IV BOLUS 3,000 UNIT in SYRINGE 0 ML IV ONE (23:15)
[2016-10-29] VITALS (7 sets, daily range): BP systolic 114–160; BP diastolic 62–76; PULSE 64–78; TEMP 36.6–36.9; O2SAT 96–100
[2016-10-29 06:02] LABS: BUN/CREATININE RATIO 4.3 (10-20); CALCIUM 8.2 mg/dl (8.5-10.1); CREATININE 8.6 mg/dl (0.60-1.20); POTASSIUM 4.6 mmol/L (3.5-5.1)
[2016-10-29 06:50] LABS: INR 1.1 (0.9-1.1); PROTHROMBIN TIME (PATIENT) 11.6 SECONDS (9.0-12.0)
[2016-10-29] MEDS: INSULIN ASPART 100 UNITS/ML 3 ML PEN SC SCH ×4 (07:00→20:51)
[2016-10-29] MEDS: CALCIUM ACETATE 667MG GELCAP PO SCH ×3 (08:14→16:26)
[2016-10-29] MEDS: LACTOBACILLUS ACIDOPHILUS (FLORANEX) TAB PO SCH ×3 (08:14→16:25)
[2016-10-29] MEDS: FLUTICASONE/SALMETEROL 250/50 (ADVAIR) 14 PUFF/1 INHALER INH SCH ×2 (08:15→20:50)
[2016-10-29] MEDS: PrednisoLONE ACET 1% OP SUSP 5 ML BTL OPL SCH (08:15)
[2016-10-29] MEDS: LOSARTAN POTASSIUM 50 MG TAB PO SCH (08:15)
[2016-10-29] MEDS: CLONIDINE HCL 0.1 MG TAB PO SCH ×2 (08:15→20:51)
[2016-10-29] MEDS: AMLODIPINE BESYLATE 5 MG TAB PO SCH (08:16)
[2016-10-29] MEDS: NEPHROCAPS PO SCH (08:16)
[2016-10-29] MEDS: FUROSEMIDE 40 MG TAB PO SCH (08:16)
[2016-10-29] MEDS: DOXYCYCLINE HYCLATE 100 MG CAP PO SCH ×2 (08:17→20:51)
[2016-10-29] MEDS: INSULIN GLARGINE SOLOSTAR 100 UNITS/ML 3 ML PEN SC SCH (08:18)
[2016-10-29 08:19] LABS: HEPATITIS B AB NEG
--- NOTE | 2016-10-29 15:14 | Progress Note ---
Internal Med Progress Note Date of Service: Oct 29, 2016. Provider Documentation: SUBJECTIVE: complains of having diarrhea still has cough but getting better no sob afebrile no chest pain no other complaints OBJECTIVE: Vital Signs-as noted below Exam: General-alert and oriented. Not in distress ENT-Normal hearing Neck-no neck masses supple Lungs-cta b/l no wheezing mild b/l crackles present Heart-s1 and s2 heard irregular rate and rhythm no murmurs Abdomen-soft bowel sounds present non tender no distension Extremities- no erythema Neuro-alert and oriented moves extremities Lab data as noted below. ASSESSMENT & PLAN: ATRIAL FIBRILLATION WITH RVR Sent to ER after AF RVR noted at dialysis; hx PAF; off Coumadin since 04/2016 when admitted for GIB Possibly triggered by infection (pneumonia)? TSH normal serial Ce negative echo no change from previous was on cardizem drip which is stooped now as rates are under control on iv heparin seen by cardiology and appreciate inputs continue current meds increased Coumadin to 7.5mg daily plan to start on po Lopressor if rates go up stable now HCAP possible gm negative, mrsa pneumonia? 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[employer]S Consulted nephrology COPD/ CHRONIC RESPIRATORY FAILURE stable on home meds PRN Xopenex/ Atrovent nebs On Advair and Incruse Ellipta inhalers On chronic oxygen 2.5 L NC continuous Smoking cessation advised Stable conditions: HYPERTENSION BP is stable On amlodipine, clonidine, furosemide, losartan will monitor DM TYPE 2 Continue home Lantus Novolog sliding scale RECENT LEFT HAND INFECTED WOUND/ CELLULITIS Improved with outpatient Keflex course- wound still present but no sign of cellulitis CHRONIC ANEMIA Hg in 10's, stable from baseline DVT PROPHYLAXIS On heparin drip FULL CODE DISPOSITION monitor in tele pt/ot prior to discharge Follows with Dr. Armando for primary care possible d/c in 1-2 days Vital Signs: Date Time Temp Pulse Resp B/P (MAP) Pulse Ox O2 Delivery O2 Flow Rate FiO2 10/29/16 12:00 Nasal Cannula 2.5 10/29/16 11:11 36.9 64 22 114/70 (85) 100 Nasal Cannula 2.0 10/29/16 08:00 Room Air 10/29/16 07:29 36.6 70 22 125/75 (92) 96 Nasal Cannula 2.0 10/29/16 04:00 Nasal Cannula 2.5 10/29/16 03:20 36.6 66 21 114/73 (87) 98 Nasal Cannula 2.5 10/29/16 00:00 Nasal Cannula 2.5 10/29/16 00:00 36.7 72 18 126/76 (93) 97 Room Air 10/28/16 20:00 Nasal Cannula 2.5 10/28/16 19:27 36.5 71 19 117/69 (85) 98 Nasal Cannula 2.0 10/28/16 16:00 Nasal Cannula 2.0 10/28/16 15:40 36.6 77 18 139/65 (89) 95 Lab Results: Results Past 24 Hours Test 10/28/16 16:09 10/28/16 20:52 10/28/16 21:38 10/29/16 04:40 Range/Units Bedside Glucose 186 88 70-90 mg/dl Activated Partial Thromboplast Time 41.3 52.3 21.0-31.0 SECONDS Partial Thromboplastin Ratio 1.6 2.0 Prothrombin Time 11.6 9.0-12.0 SECONDS Prothromb Time International Ratio 1.1 0.9-1.1 Sodium Level 136 136-145 mmol/L Potassium Level 4.6 3.5-5.1 mmol/L Chloride Level 98 98-107 mmol/L Carbon Dioxide Level 30 21-32 mmol/L Anion Gap 8.0 3-11 mmol/L Blood Urea Nitrogen 37 7-18 mg/dl Creatinine 8.60 0.60-1.20 mg/dl Est Creatinine Clear Calc Drug Dose 7.3 ml/min Estimated GFR () 4.9 Estimated GFR (Non- 4.3 BUN/Creatinine Ratio 4.3 10-20 Random Glucose 116 70-99 mg/dl Calcium Level 8.2 8.5-10.1 mg/dl Hepatitis B Surface Antigen NEG NEG Hepatitis B Surface Antibody NEG Test 10/29/16 06:25 10/29/16 11:24 Range/Units Bedside Glucose 91 179 70-90 mg/dl Microbiology Results 10/29/16 C.difficile Toxin B Gene (PCR), Received Pending
[2016-10-29] MEDS ORDERED: WARFARIN SOD 7.5 MG TAB PO SCH (16:00)
[2016-10-29] MEDS: HEPARIN 25,000 UNIT/500ML D5W 500 ML IV PRN (16:00)
[2016-10-30] VITALS (19 sets, daily range): BP systolic 118–175; BP diastolic 44–72; PULSE 57–69; TEMP 36.6–37; O2SAT 94–99
[2016-10-30 06:08] LABS: INR 1.1 (0.9-1.1); PARTIAL THROMBOPLASTIN RATIO 1.5
[2016-10-30 06:41] LABS: BUN/CREATININE RATIO 4.5 (10-20); CALCIUM 8.7 mg/dl (8.5-10.1); POTASSIUM 4.7 mmol/L (3.5-5.1)
[2016-10-30] MEDS ORDERED: HEPARIN IV BOLUS 4,500 UNIT in SYRINGE 0 ML IV ONE (06:45)
[2016-10-30] MEDS: HEPARIN 25,000 UNIT/500ML D5W 500 ML IV PRN ×3 (06:45→23:18)
[2016-10-30] MEDS: CALCIUM ACETATE 667MG GELCAP PO SCH ×3 (07:49→17:37)
[2016-10-30] MEDS: LACTOBACILLUS ACIDOPHILUS (FLORANEX) TAB PO SCH ×3 (07:50→17:37)
[2016-10-30] MEDS: FUROSEMIDE 40 MG TAB PO SCH (09:00)
[2016-10-30] MEDS: AMLODIPINE BESYLATE 5 MG TAB PO SCH (09:00)
[2016-10-30] MEDS: LOSARTAN POTASSIUM 50 MG TAB PO SCH (09:00)
[2016-10-30] MEDS: CLONIDINE HCL 0.1 MG TAB PO SCH ×2 (09:00→20:56)
[2016-10-30] MEDS: PrednisoLONE ACET 1% OP SUSP 5 ML BTL OPL SCH (09:02)
[2016-10-30] MEDS: FLUTICASONE/SALMETEROL 250/50 (ADVAIR) 14 PUFF/1 INHALER INH SCH ×2 (09:02→20:57)
[2016-10-30] MEDS: NEPHROCAPS PO SCH (09:02)
[2016-10-30] MEDS: INSULIN ASPART 100 UNITS/ML 3 ML PEN SC SCH ×4 (09:04→20:55)
[2016-10-30] MEDS: INSULIN GLARGINE SOLOSTAR 100 UNITS/ML 3 ML PEN SC SCH (09:05)
[2016-10-30] MEDS ORDERED: EPOETIN ALFA 10,000 UNITS/ML VIAL IV. ONE (10:00)
[2016-10-30] MEDS: LIDOCAINE/PRILOCAINE 2.5% EA CRM EXT SCH (10:08)
[2016-10-30] MEDS ORDERED: LEVOFLOXACIN 500 MG TAB PO SCH (11:00)
--- NOTE | 2016-10-30 11:10 | Dialysis Progress Note ---
Nephrology Dialysis Note Date of Service: Oct 30, 2016. Subjective 71 yo female with esrd who has afib and currently undergoing anticoagulation who spontaneously converted into sinus. pt is comfortable. pt waiting for inr to be therapeutic. seen on dialysis. tolerating it well. Objective Date Time Temp Pulse Resp B/P (MAP) Pulse Ox O2 Delivery O2 Flow Rate FiO2 10/30/16 07:13 36.7 61 20 131/71 (91) 96 Nasal Cannula 2.0 10/30/16 04:00 Nasal Cannula 2.5 10/30/16 03:26 36.8 64 18 121/69 (86) 97 Nasal Cannula 2.0 10/29/16 23:59 Nasal Cannula 2.5 10/29/16 23:39 36.6 65 20 156/74 (101) 99 Nasal Cannula 2.5 10/29/16 20:00 Nasal Cannula 2.5 10/29/16 20:00 36.7 68 20 160/76 (104) 97 Nasal Cannula 2.5 10/29/16 16:00 Nasal Cannula 2.5 10/29/16 15:50 36.7 78 22 122/62 (82) 98 Nasal Cannula 2.0 10/29/16 12:00 Nasal Cannula 2.5 10/29/16 11:11 36.9 64 22 114/70 (85) 100 Nasal Cannula 2.0 Physical Exam: General-aaox3 Eyes-no scleral icterus ENT-mmm Neck-supple Lungs-cta Heart-regular Abdomen-bs+ s/nt/nd Extremities-no c/c/e Neuro-nonfocal Current Inpatient Medications Medications (Trade) Dose Ordered Sig/Joan Route Start Time Stop Time Status Last Admin Dose Admin Acetaminophen (Tylenol Tab) 650 mg Q4H PRN PO 10/26/16 13:00 11/25/16 12:59 Ondansetron HCl (Zofran Inj) 4 mg Q6H PRN IV 10/26/16 13:00 11/25/16 12:59 10/28/16 18:41 4 MG Diltiazem HCl 125 mg/Dextrose 125 ml @ 0 mls/hr Q0M PRN IV 10/26/16 13:15 11/25/16 13:14 10/26/16 21:40 10 MLS/HR Amlodipine Besylate (Norvasc Tab) 10 mg QAM PO 10/27/16 09:00 11/26/16 08:59 10/29/16 08:16 10 MG Calcium Acetate (Phoslo Cap) 1,334 mg TIDM PO 10/26/16 16:45 11/25/16 17:59 10/30/16 07:49 1,334 MG Clonidine HCl (Catapres Tab) 0.1 mg BID PO 10/26/16 21:00 11/25/16 20:59 10/29/16 20:51 0.1 MG Miscellaneous Information (Order Awaiting Action) 1 ea QS N/A 10/26/16 16:00 11/25/16 15:59 Ergocalciferol (Vitamin D Cap) 50,000 interunit Q30D@0900 PO 11/03/16 09:00 12/03/16 08:59 Salmeterol Xinafoate/ Fluticasone (Advair Diskus 250/50 Inh) 1 puff BID INH 10/26/16 21:00 11/25/16 20:59 10/30/16 09:02 1 PUFF Furosemide (Lasix Tab) 40 mg DAILY PO 10/27/16 09:00 11/26/16 08:59 10/29/16 08:16 40 MG Insulin Glargine (Lantus Solostar Pen) 26 units QAM SC 10/27/16 09:00 11/26/16 08:59 10/30/16 09:05 26 UNITS Lidocaine/ Prilocaine (Emla 2.5% Crm) 1 ea TuThSa@0900 EXT 10/28/16 09:00 11/27/16 08:59 10/30/16 10:08 1 EA Losartan Potassium (coZAAR TAB) 100 mg DAILY PO 10/27/16 09:00 11/26/16 08:59 10/29/16 08:15 100 MG Prednisolone Acetate (Pred Forte 1% Oph Susp) 1 drops DAILY OPL 10/27/16 09:00 11/26/16 08:59 10/30/16 09:02 1 DROPS Valacyclovir HCl (Valtrex Tab) 1,000 mg DAILY PO 10/27/16 09:00 11/26/16 08:59 10/30/16 09:02 1,000 MG Vitamin B Complex/ Vit C/Folic Acid (Nephrocaps) 1 cap DAILY PO 10/27/16 09:00 11/26/16 08:59 10/30/16 09:02 1 CAP Miscellaneous Information (Order Awaiting Action) 1 ea QS N/A 10/26/16 16:00 11/25/16 15:59 Insulin Aspart (novoLOG ASPART) SLIDING SCALE If C... ACHS SC 10/26/16 16:00 11/25/16 15:59 10/30/16 09:04 3 UNITS Glucose (Glucose 40% Gel) 15-30 GRAMS 15 GRAMS... UD PRN PO 10/26/16 13:45 11/25/16 13:44 Glucose (Glucose Chew Tab) 4-8 Tablets 4 Tabl... UD PRN PO 10/26/16 13:45 11/25/16 13:44 Dextrose (Dextrose 50% 50ML Syringe) 25-50ML OF 50% DW IV FOR... UD PRN IV 10/26/16 13:45 11/25/16 13:44 Glucagon (Glucagon Inj) 1 mg UD PRN SQ 10/26/16 13:45 11/25/16 13:44 Ipratropium [place] (Atrovent 0.02% 0.5MG/2.5ML Neb) 0.5 mg Q4H PRN INH 10/26/16 15:30 11/25/16 15:29 Levalbuterol (Xopenex 1.25MG/ 0.5ML Neb) 1.25 mg Q4H PRN INH 10/26/16 15:30 11/25/16 15:29 Heparin Sodium/ Dextrose 500 ml @ 31 mls/hr Q16H8M PRN IV 10/26/16 16:45 11/25/16 16:44 10/30/16 07:47 31 MLS/HR Lactobacillus Acidophilus (Floranex Tab) 4 tab TIDM PO 10/27/16 11:30 11/26/16 11:29 10/30/16 07:50 4 TAB Levofloxacin (Consult) 1 ea UD PRN N/A 10/28/16 09:15 11/27/16 09:14 Levofloxacin (Levaquin Tab) 500 mg Q48H PO 10/30/16 11:00 11/04/16 23:59 Warfarin Sodium (Coumadin Tab) 10 mg DAILY@16 PO 10/30/16 16:00 11/26/16 15:59 Last 24 Hours Test 10/29/16 11:24 10/29/16 16:02 10/29/16 20:49 10/29/16 22:42 Bedside Glucose 179 mg/dl 111 mg/dl 76 mg/dl 118 mg/dl Test 10/30/16 05:04 10/30/16 06:48 Prothrombin Time 12.0 SECONDS Prothromb Time International Ratio 1.1 Activated Partial Thromboplast Time 40.1 SECONDS Partial Thromboplastin Ratio 1.5 Sodium Level 134 mmol/L Potassium Level 4.7 mmol/L Chloride Level 97 mmol/L Carbon Dioxide Level 28 mmol/L Anion Gap 9.0 mmol/L Blood Urea Nitrogen 49 mg/dl Creatinine 11.00 mg/dl Est Creatinine Clear Calc Drug Dose 5.8 ml/min Estimated GFR () 3.7 Estimated GFR (Non- 3.2 BUN/Creatinine Ratio 4.5 Random Glucose 111 mg/dl Calcium Level 8.7 mg/dl Bedside Glucose 98 mg/dl Date/Time Source Procedure Growth Status 10/29/16 14:30 Stool C.difficile Toxin B Gene (PCR) - Final No C. difficile toxin B gene detected Complete Assessment & Plan ESRD-undergoing dialysis t-h-s. seen on dialysis. 2k bath. attempting 2 liters off as bp tolerates. volume status is good. access working well. Anemia of Renal Failure-on procrit with goal hg of 10 to 11. DELILAH: on phoslo and continue current medications.
[2016-10-30] MEDS ORDERED: LOPERAMIDE HCL 2 MG CAP PO ONE (11:30)
[2016-10-30] MEDS ORDERED: LOPERAMIDE HCL 2 MG CAP PO PRN (11:30)
[2016-10-30 15:27] LABS: PARTIAL THROMBOPLASTIN RATIO 2.1
[2016-10-30] MEDS: WARFARIN SOD 10 MG TAB PO SCH (16:17)
--- NOTE | 2016-10-30 16:53 | Progress Note ---
Internal Med Progress Note Date of Service: Oct 30, 2016. Provider Documentation: SUBJECTIVE: Still having diarrhea cough is better no sob afebrile no palpitations OBJECTIVE: Vital Signs-as noted below Exam: General-alert and oriented. Not in distress ENT-Normal hearing Neck-no neck masses supple Lungs-cta b/l no wheezing mild b/l crackles present Heart-s1 and s2 heard irregular rate and rhythm no murmurs Abdomen-soft bowel sounds present non tender no distension Extremities- no erythema Neuro-alert and oriented moves extremities Lab data as noted below. ASSESSMENT & PLAN: ATRIAL FIBRILLATION WITH RVR Sent to ER after AF RVR noted at dialysis; hx PAF; off Coumadin since 04/2016 when admitted for GIB Possibly triggered by infection (pneumonia)? TSH normal serial Ce negative echo no change from previous was on Cardizem drip which is stooped now as rates are under control on iv heparin seen by cardiology and appreciate inputs continue current meds inr still 1.1 today increased Coumadin to 10mg daily plan to start on po Lopressor if rates go up stable now HCAP possible gm negative, mrsa pneumonia? 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 nephrology COPD/ CHRONIC RESPIRATORY FAILURE stable on home meds PRN Xopenex/ Atrovent nebs On Advair and Incruse Ellipta inhalers On chronic oxygen 2.5 L NC continuous Smoking cessation advised Stable conditions: HYPERTENSION BP is stable On amlodipine, clonidine, furosemide, losartan will monitor DM TYPE 2 Continue home Lantus Novolog sliding scale RECENT LEFT HAND INFECTED WOUND/ CELLULITIS Improved with outpatient Keflex course- wound still present but no sign of cellulitis CHRONIC ANEMIA Hg in 10's, stable from baseline DVT PROPHYLAXIS On heparin drip FULL CODE DISPOSITION monitor in tele pt/ot prior to discharge Follows with Dr. Armando for primary care await inr to be therapeutic possible d/c in 1-2 days Vital Signs: Date Time Temp Pulse Resp B/P (MAP) Pulse Ox O2 Delivery O2 Flow Rate FiO2 10/30/16 14:20 36.7 59 130/55 (80) 10/30/16 13:30 63 133/54 10/30/16 13:15 61 131/63 10/30/16 13:00 62 130/59 10/30/16 12:45 59 132/59 10/30/16 12:30 60 138/60 10/30/16 12:15 62 118/44 10/30/16 12:00 61 137/57 10/30/16 12:00 Nasal Cannula 2.5 10/30/16 11:45 57 128/59 10/30/16 11:30 68 123/61 10/30/16 11:15 60 131/59 10/30/16 11:00 61 128/54 10/30/16 10:42 61 136/61 10/30/16 10:34 36.9 62 124/57 (79) 10/30/16 08:00 Nasal Cannula 2.5 10/30/16 07:13 36.7 61 20 131/71 (91) 96 Nasal Cannula 2.0 10/30/16 04:00 Nasal Cannula 2.5 10/30/16 03:26 36.8 64 18 121/69 (86) 97 Nasal Cannula 2.0 10/29/16 23:59 Nasal Cannula 2.5 10/29/16 23:39 36.6 65 20 156/74 (101) 99 Nasal Cannula 2.5 10/29/16 20:00 Nasal Cannula 2.5 10/29/16 20:00 36.7 68 20 160/76 (104) 97 Nasal Cannula 2.5 Lab Results: Results Past 24 Hours Test 10/29/16 20:49 10/29/16 22:42 10/30/16 05:04 10/30/16 06:48 Range/Units Bedside Glucose 76 118 98 70-90 mg/dl Prothrombin Time 12.0 9.0-12.0 SECONDS Prothromb Time International Ratio 1.1 0.9-1.1 Activated Partial Thromboplast Time 40.1 21.0-31.0 SECONDS Partial Thromboplastin Ratio 1.5 Sodium Level 134 136-145 mmol/L Potassium Level 4.7 3.5-5.1 mmol/L Chloride Level 97 98-107 mmol/L Carbon Dioxide Level 28 21-32 mmol/L Anion Gap 9.0 3-11 mmol/L Blood Urea Nitrogen 49 7-18 mg/dl Creatinine 11.00 0.60-1.20 mg/dl Est Creatinine Clear Calc Drug Dose 5.8 ml/min Estimated GFR () 3.7 Estimated GFR (Non- 3.2 BUN/Creatinine Ratio 4.5 10-20 Random Glucose 111 70-99 mg/dl Calcium Level 8.7 8.5-10.1 mg/dl Test 10/30/16 12:16 10/30/16 14:49 10/30/16 16:32 Range/Units Bedside Glucose 86 229 70-90 mg/dl Activated Partial Thromboplast Time 54.2 21.0-31.0 SECONDS Partial Thromboplastin Ratio 2.1
[2016-10-30] MEDS ORDERED: NURSING DECISION MEDICATION ORDER SCH (23:45)
[2016-10-31 03:48] VITALS: BP 143/77; PULSE 64; TEMP 36.7; O2SAT 98
[2016-10-31 05:58] LABS: PARTIAL THROMBOPLASTIN RATIO 2.2
[2016-10-31 06:18] LABS: BUN/CREATININE RATIO 3.8 (10-20); CALCIUM 8.4 mg/dl (8.5-10.1); CREATININE 8.5 mg/dl (0.60-1.20); POTASSIUM 4.5 mmol/L (3.5-5.1)
[2016-10-31] MEDS: CALCIUM ACETATE 667MG GELCAP PO SCH ×3 (07:49→16:06)
[2016-10-31] MEDS: LACTOBACILLUS ACIDOPHILUS (FLORANEX) TAB PO SCH ×3 (07:49→16:05)
[2016-10-31] MEDS: FLUTICASONE/SALMETEROL 250/50 (ADVAIR) 14 PUFF/1 INHALER INH SCH ×2 (07:50→21:10)
[2016-10-31] MEDS: PrednisoLONE ACET 1% OP SUSP 5 ML BTL OPL SCH (07:50)
[2016-10-31] MEDS: CLONIDINE HCL 0.1 MG TAB PO SCH ×2 (07:50→21:11)
[2016-10-31] MEDS: FUROSEMIDE 40 MG TAB PO SCH (07:51)
[2016-10-31] MEDS: AMLODIPINE BESYLATE 5 MG TAB PO SCH (07:51)
[2016-10-31] MEDS: LOSARTAN POTASSIUM 50 MG TAB PO SCH (07:51)
[2016-10-31] MEDS: NEPHROCAPS PO SCH (07:52)
[2016-10-31] MEDS: INSULIN ASPART 100 UNITS/ML 3 ML PEN SC SCH ×4 (07:55→21:00)
[2016-10-31] MEDS: INSULIN GLARGINE SOLOSTAR 100 UNITS/ML 3 ML PEN SC SCH (07:56)
[2016-10-31 08:14] VITALS: BP 144/72; PULSE 74; TEMP 36.9; O2SAT 96
[2016-10-31 08:46] LABS: INR 1.4 (0.9-1.1); PROTHROMBIN TIME (PATIENT) 15.2 SECONDS (9.0-12.0)
[2016-10-31 11:54] VITALS: BP 136/66; PULSE 61; TEMP 36.6; O2SAT 98
[2016-10-31 15:47] VITALS: BP 136/74; PULSE 61; TEMP 36.7; O2SAT 97
[2016-10-31] MEDS: WARFARIN SOD 10 MG TAB PO SCH (16:05)
--- NOTE | 2016-10-31 16:45 | Progress Note ---
Internal Med Progress Note Date of Service: Oct 31, 2016. Provider Documentation: SUBJECTIVE: Still having some diarrhea cough is getting better denies sob afebrile no other complaints OBJECTIVE: Vital Signs-as noted below Exam: General-alert and oriented. Not in distress ENT-Normal hearing Neck-no neck masses supple Lungs-cta b/l no wheezing mild b/l crackles present Heart-s1 and s2 heard irregular rate and rhythm no murmurs Abdomen-soft bowel sounds present non tender no distension Extremities- no erythema Neuro-alert and oriented moves extremities Lab data as noted below. ASSESSMENT & PLAN: ATRIAL FIBRILLATION WITH RVR Sent to ER after AF RVR noted at dialysis; hx PAF; off Coumadin since 04/2016 when admitted for GIB Possibly triggered by infection (pneumonia)? TSH normal serial Ce negative echo no change from previous was on Cardizem drip which is stooped now as rates are under control on iv heparin seen by cardiology and appreciate inputs continue current meds inr still 1.4 today await inr to be therapeutic stable now HCAP possible gm negative, mrsa pneumonia? 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 COPD/ CHRONIC RESPIRATORY FAILURE stable on home meds PRN Xopenex/ Atrovent nebs On Advair and Incruse Ellipta inhalers On chronic oxygen 2.5 L NC continuous Smoking cessation advised Stable conditions: HYPERTENSION BP is stable On amlodipine, clonidine, furosemide, losartan will monitor DM TYPE 2 Continue home Lantus Novolog sliding scale RECENT LEFT HAND INFECTED WOUND/ CELLULITIS Improved with outpatient Keflex course- wound still present but no sign of cellulitis CHRONIC ANEMIA Hg in 10's, stable from baseline DVT PROPHYLAXIS On heparin drip and coumadin FULL CODE DISPOSITION monitor in tele pt/ot prior to discharge Follows with Dr. Armando for primary care await inr to be therapeutic possible d/c in am Vital Signs: Date Time Temp Pulse Resp B/P (MAP) Pulse Ox O2 Delivery O2 Flow Rate FiO2 10/31/16 15:47 36.7 61 18 136/74 (94) 97 Nasal Cannula 2.0 10/31/16 12:00 Room Air 10/31/16 11:54 36.6 61 18 136/66 (89) 98 Nasal Cannula 2.0 10/31/16 08:14 36.9 74 18 144/72 (96) 96 10/31/16 08:00 Room Air 10/31/16 04:00 Nasal Cannula 2.5 10/31/16 03:48 36.7 64 19 143/77 (99) 98 Nasal Cannula 2.0 10/30/16 23:59 Nasal Cannula 2.5 10/30/16 23:57 36.9 62 19 132/68 (89) 99 Nasal Cannula 2.0 10/30/16 20:00 Nasal Cannula 2.5 10/30/16 19:29 37.0 64 18 175/72 (106) 96 Nasal Cannula 2.0 10/30/16 17:36 36.6 69 18 149/72 (97) 94 Nasal Cannula 2.0 Lab Results: Results Past 24 Hours Test 10/30/16 20:22 10/31/16 05:26 10/31/16 06:53 10/31/16 11:29 Range/Units Bedside Glucose 122 88 128 70-90 mg/dl Prothrombin Time 15.2 9.0-12.0 SECONDS Prothromb Time International Ratio 1.4 0.9-1.1 Activated Partial Thromboplast Time 58.4 21.0-31.0 SECONDS Partial Thromboplastin Ratio 2.2 Sodium Level 136 136-145 mmol/L Potassium Level 4.5 3.5-5.1 mmol/L Chloride Level 99 98-107 mmol/L Carbon Dioxide Level 30 21-32 mmol/L Anion Gap 7.0 3-11 mmol/L Blood Urea Nitrogen 33 7-18 mg/dl Creatinine 8.50 0.60-1.20 mg/dl Est Creatinine Clear Calc Drug Dose 7.4 ml/min Estimated GFR () 5.0 Estimated GFR (Non- 4.3 BUN/Creatinine Ratio 3.8 10-20 Random Glucose 89 70-99 mg/dl Calcium Level 8.4 8.5-10.1 mg/dl Test 10/31/16 16:22 Range/Units Bedside Glucose 179 70-90 mg/dl
[2016-10-31 19:30] VITALS: BP 174/70; PULSE 62; TEMP 36.8; O2SAT 98
[2016-10-31 23:43] VITALS: BP 148/75; PULSE 63; TEMP 36.6; O2SAT 97
[2016-11-01 04:00] VITALS: BP 148/76; PULSE 60; TEMP 36.6; O2SAT 97
[2016-11-01 05:33] LABS: INR 1.7 (0.9-1.1); PROTHROMBIN TIME (PATIENT) 19.1 SECONDS (9.0-12.0)
[2016-11-01 05:56] LABS: BUN/CREATININE RATIO 3.9 (10-20); CALCIUM 8.2 mg/dl (8.5-10.1)
[2016-11-01] MEDS: LACTOBACILLUS ACIDOPHILUS (FLORANEX) TAB PO SCH ×2 (07:38→12:02)
[2016-11-01] MEDS: NEPHROCAPS PO SCH (07:39)
[2016-11-01] MEDS: LOSARTAN POTASSIUM 50 MG TAB PO SCH (07:39)
[2016-11-01] MEDS: FUROSEMIDE 40 MG TAB PO SCH (07:40)
[2016-11-01] MEDS: AMLODIPINE BESYLATE 5 MG TAB PO SCH (07:40)
[2016-11-01] MEDS: CLONIDINE HCL 0.1 MG TAB PO SCH (07:40)
[2016-11-01] MEDS: CALCIUM ACETATE 667MG GELCAP PO SCH ×2 (07:41→12:02)
[2016-11-01] MEDS: PrednisoLONE ACET 1% OP SUSP 5 ML BTL OPL SCH (07:41)
[2016-11-01] MEDS: FLUTICASONE/SALMETEROL 250/50 (ADVAIR) 14 PUFF/1 INHALER INH SCH (07:42)
[2016-11-01] MEDS: HEPARIN 25,000 UNIT/500ML D5W 500 ML IV PRN (07:44)
[2016-11-01] MEDS: INSULIN ASPART 100 UNITS/ML 3 ML PEN SC SCH ×2 (07:45→12:05)
[2016-11-01] MEDS: INSULIN GLARGINE SOLOSTAR 100 UNITS/ML 3 ML PEN SC SCH (07:46)
[2016-11-01 09:33] VITALS: BP 151/69; PULSE 59; O2SAT 100
[2016-11-01] MEDS ORDERED: LEVOFLOXACIN 500 MG TAB PO STA (11:17)
[2016-11-01] MEDS ORDERED: WARF5TAB90 PO ×2 (11:20→11:35)
[2016-11-01] MEDS ORDERED: LCTX PO ×2 (11:20→11:35)
[2016-11-01] MEDS ORDERED: LVQ500 PO ×2 (11:20→11:35)
--- NOTE | 2016-11-01 11:27 | Discharge Instructions ---
Discharge Instructions Date of Service Nov 01, 2016. Admission Reason for Admission: Atrial Fibrillation With Rvr Discharge Discharge Diagnosis / Problem: a fib with rvr, pneumonia Discharge Goals Goal(s): Decrease discomfort, Improve function Activity Recommendations Activity Limitations: resume your previous activity . Instructions / Follow-Up Instructions / Follow-Up FOLLOWUP WITH FAMILY DOCTOR ON October AT 1PM. FOLLOWUP WITH CARDIOLOGY IN 2-3 WEEKS. TO TAKE COUMADIN 10MG PO DAILY IN EVENING UNTIL FURTHER RECOMMENDATIONS FROM COUMADIN CLINIC. LAB: PT/INR IN 2-3 DAYS AND FOLLOW RESULTS WITH COUMADIN CLINIC. BASED ON LAB RESULTS FURTHER RECOMMENDATIONS BY COUMADIN CLINIC REGARDING COUMADIN DOSING. NOTIFIED COUMADIN CLINIC. Current Hospital Diet Patient's current hospital diet: AHA Diet (Heart Healthy), Diabetes Type 2 Diet , Renal Diet, Low Sodium Diet (2gm Na) Discharge Diet Recommended Diet: AHA Diet (Heart Healthy), Diabetes Type 2 Diet, Renal Diet Pending Studies Studies pending at discharge: no Medical Emergencies . Who to Call and When: Medical Emergencies: If at any time you feel your situation is an emergency, please call 911 immediately. . Non-Emergent Contact Non-Emergency issues call your: Primary Care Provider . . "Provider Documentation" section prepared by Cameron Thakur. . VTE Core Measure Inpt VTE Proph given/why not?: Warfarin (Coumadin), Other Anticoagulation (IV HEPARIN)
[2016-11-01 12:22] VITALS: BP 148/76; PULSE 60; TEMP 36.6; O2SAT 97
--- NOTE | 2016-11-01 18:11 | Progress Note ---
Internal Med Progress Note Date of Service: Nov 01, 2016. Provider Documentation: SUBJECTIVE: resting comfortably cough improved no sob no chest pain ok to go home OBJECTIVE: Vital Signs-as noted below Exam: General-alert and oriented. Not in distress ENT-Normal hearing Neck-no neck masses supple Lungs-cta b/l no wheezing mild b/l crackles present Heart-s1 and s2 heard irregular rate and rhythm no murmurs Abdomen-soft bowel sounds present non tender no distension Extremities- no erythema Neuro-alert and oriented moves extremities Lab data as noted below. ASSESSMENT & PLAN: ATRIAL FIBRILLATION WITH RVR Sent to ER after AF RVR noted at dialysis; hx PAF; off Coumadin since 04/2016 when admitted for GIB Possibly triggered by infection (pneumonia)? TSH normal serial Ce negative echo no change from previous was on Cardizem drip which is stooped now as rates are under control on iv heparin seen by cardiology and appreciate inputs continue current meds inr still 1.7 today discharged on Coumadin Coumadin clinic notified f/u with pcp and cardiology HCAP possible gm negative, mrsa pneumonia? 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 COPD/ CHRONIC RESPIRATORY FAILURE stable on home meds PRN Xopenex/ Atrovent nebs On Advair and Incruse Ellipta inhalers On chronic oxygen 2.5 L NC continuous Smoking cessation advised HYPERTENSION BP is stable On amlodipine, clonidine, furosemide, losartan will monitor DM TYPE 2 Continue home Lantus Novolog sliding scale RECENT LEFT HAND INFECTED WOUND/ CELLULITIS Improved with outpatient Keflex course- wound still present but no sign of cellulitis CHRONIC ANEMIA Hg in 10's, stable from baseline Discharged home Vital Signs: Date Time Temp Pulse Resp B/P (MAP) Pulse Ox O2 Delivery O2 Flow Rate FiO2 11/01/16 12:22 36.6 60 19 97 Nasal Cannula 11/01/16 12:00 Nasal Cannula 2.5 11/01/16 09:33 59 100 11/01/16 08:00 Nasal Cannula 2.5 11/01/16 04:00 36.6 60 19 148/76 (100) 97 Nasal Cannula 2.0 11/01/16 04:00 Nasal Cannula 2.5 11/01/16 00:00 Nasal Cannula 2.5 10/31/16 23:43 36.6 63 19 148/75 (99) 97 Nasal Cannula 2.0 10/31/16 20:00 Nasal Cannula 2.5 10/31/16 19:30 36.8 62 18 174/70 (104) 98 Nasal Cannula 2.0 Lab Results: Results Past 24 Hours Test 10/31/16 20:35 11/01/16 05:03 11/01/16 05:08 11/01/16 06:46 Range/Units Bedside Glucose 153 101 70-90 mg/dl Sodium Level 135 136-145 mmol/L Potassium Level 5.0 3.5-5.1 mmol/L Chloride Level 99 98-107 mmol/L Carbon Dioxide Level 26 21-32 mmol/L Anion Gap 10.0 3-11 mmol/L Blood Urea Nitrogen 39 7-18 mg/dl Creatinine 10.00 0.60-1.20 mg/dl Est Creatinine Clear Calc Drug Dose 6.3 ml/min Estimated GFR () 4.1 Estimated GFR (Non- 3.5 BUN/Creatinine Ratio 3.9 10-20 Random Glucose 108 70-99 mg/dl Calcium Level 8.2 8.5-10.1 mg/dl Prothrombin Time 19.1 9.0-12.0 SECONDS Prothromb Time International Ratio 1.7 0.9-1.1 Activated Partial Thromboplast Time 102.7 21.0-31.0 SECONDS Partial Thromboplastin Ratio 4.0 Test 11/01/16 11:32 Range/Units Bedside Glucose 121 70-90 mg/dl
--- NOTE | 2016-11-01 18:40 | Discharge Summary ---
Discharge Summary Date of Service Nov 01, 2016. Discharge Summary Admission Date: Oct 26, 2016 at 12:42 Discharge Date: Nov 01, 2016 Discharge Disposition: Home Principal Diagnosis: RAPID AFIB PNEUMONIA Secondary Diagnoses/Problems: (1) A-fib Permanent Comment: paroxysmal Status: Chronic (2) Adrenal adenoma Status: Chronic (3) Anemia of chronic disease Status: Chronic (4) AV fistula Status: Chronic (5) Chronic respiratory failure Status: Chronic (6) COPD, moderate Status: Chronic (7) DM type 2 (diabetes mellitus, type 2) Status: Chronic (8) Dyslipidemia Status: Chronic (9) ESRD (end stage renal disease) on dialysis Status: Chronic (10) H/O cardiovascular stress test Permanent Comment: 05/2013 - negative for ischemia Status: Chronic (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 Respiratory motion artifact. ECHO: No significant change compared to previous study of 01/14/16. * Normal LV chamber size with moderate concentric LVH. * Hyperdynamic LV systolic function, EF >70%. * Aortic valve sclerosis moderate, without significant aortic valvular stenosis. * There is heavy focal calcification of the posterior mitral valve leaflet and annulus. Moderate to severe mitral regurgitation. * Moderate left atrial enlargement. Consultations: CARDIOLOGY NEPHROLOGY Medication Reconciliation New Medications: Warfarin Sodium (Coumadin) 5 Mg Tab 10 MG PO DAILY, #60 TAB 1 Refill Lactobacillus Acidophilus (Floranex) 1 Tab Tab 4 TAB PO TIDM for 7 Days, #84 TAB Levofloxacin (Levofloxacin) 500 Mg Tab 500 MG PO Q48H, #2 TAB Continued Medications: Acetaminophen (Apap) 325 Mg Tab 650 MG PO Q6 PRN for Pain Albuterol Hfa (Ventolin Hfa) 200 Puffs/09437 Mcg Aers 2 PUFFS INH Q4 PRN for SOB/Wheezing Amlodipine (Norvasc) 10 Mg Tab 10 MG PO QAM Calcium Acetate (Phoslo 667 Mg) 667 Mg Cap 2 CAP PO TIDM, CAP Clonidine Hcl (Catapres) 0.1 Mg Tab 0.1 MG PO BID, TAB Cyanocobalamin (Cyanocobalamin) 1,000 Mcg/Ml Inj 1000 MCG IM MONTHLY Epoetin Hakan (Procrit) 10,000 Units Inj per dialysis clinic Ergocalciferol (Vitamin D 41495 Unit) 50,000 Unit Cap 62861 UNIT PO MONTHLY, CAP 9th Fluticasone Prop/Salmeterol (Advair Diskus 250/50 60 Dose) 1 Ea Aerp 2 PUFF INH BID Furosemide (Furosemide) 40 Mg Tab 40 MG PO DAILY Home O2 Therapy (Oxygen) Gas 2.5 LITERS NA CONTINOUS Insulin Aspart (Novolog Flexpen) 100 Units/Ml Inj 1 DOSE SQ UD TAKES PER SLIDING SCALE Insulin Glargine (Lantus) 100 Unit/Ml Inj 26 UNITS SC QAM, VIAL Ipratropium-Albuterol (Duoneb) 3 Ml Nebu 1 TREATMENT INH QID PRN for SOB/Wheezing, INHA Lidocaine-Prilocaine (Mpcldlnym-Dwrrkbzwtc-Zwvw 2.5-2.5 %) 1 Cre Cre 1 APPLN TOP UD PRN for PRIOR TO DIALYSIS APPLY SMALL AMT TO ACCESS SITE 1-2 HOURS BEFORE DIALYSIS. COVER WITH SARAN WRAP Losartan Potassium (Cozaar) 100 Mg Tab 100 MG PO DAILY, TAB Prednisolone Acetate (Ophth) (Pred Forte 1% Oph) 1 % Neena 1 DROPS OPL DAILY, #5 ML Pseudoephedrine-Guaifenesin (Cvs Mucus D Extended Rele 60-600 mg) 1 Tab Tab 1 TAB PO Q12 PRN for Nasal Congestion Umeclidinium [place] (Incruse Ellipta) 62.5 Mcg/Inh Inh 1 PUFF INH DAILY, #30 Valacyclovir Hcl (Valtrex) 1 Gm Tab 1000 MG PO DAILY, #21 TAB Vitamin B Cmplx/Vitc/Folic Ac (Nephrocaps) Cap 1 CAP PO DAILY, CAP Discontinued Medications: Cephalexin (Cephalexin) 500 Mg Tab 500 MG PO BID for 10 Days, #20 TAB Admission Information HPI (per Admitting provider): This is a 71 y/o female with PMH of ESRD on HD, paroxysmal atrial fibrillation off Coumadin due to GIB in 04/2016, HTN, DM type 2, COPD with chronic respiratory failure, current smoker, and other problems listed below who was sent to the ED from dialysis for AF with RVR. Patient dialyzes [facility] in [place] and f/w Dr. Tijerina for nephro. She had approx 3.5 hours of dialysis done however was noted to be tachycardic and EKG showed AF with RVR rate 130s. Patient states she "felt funny"/ head felt "cloudy" during dialysis but now feels asymptomatic without dizziness. She notes cough for 3-4 days with clear sputum production and mild wheezing in the mornings. Has been using Advair inhaler. Not feeling wheezy/ SOB at present. Has minimal urine production at baseline. Has been on Keflex x 5 days for left hand infected wound with improvement- no longer erythematous, drainage is decreased. She denies fever, chills, nasal congestion, sore throat, syncope, chest pain, palpitations, N/V, hematochezia/ melena, dysuria, focal numbness/ weakness. Patient's Coumadin was stopped in Apr 2016 for GIB in setting of supra- therapeutic INR. At that time she required 5 units pRBC transfusion. EGD/ colonoscopy were deferred inpatient as she had recently had EGD in 01/2016 with H. Pylori gastritis which was treated. Patient states "I want nothing to do with it" when asked about Coumadin. She was in NSR on last admission 06/2016. Patient follows with Stevo Velasquez PA-C for cardiology- last seen 12/2015. Physical Exam (per Admitting): General Appearance: WD/WN, no apparent distress Head: normocephalic, atraumatic Eyes: normal inspection, PERRL, EOMI ENT: hearing grossly normal, pharynx normal Neck: supple, trachea midline Respiratory/Chest: lungs clear, normal breath sounds, no respiratory distress, no accessory muscle use, + pertinent finding (wet sounding cough during exam. no wheezing. saturating well on 2.5 liters NC. ) Cardiovascular: no murmur, normal peripheral pulses, + tachycardia (rate 110s-120s), + irregularly irregular Abdomen/GI: normal bowel sounds, non tender, soft Extremities/Musculoskelatal: no calf tenderness, no pedal edema Neurologic/Psych: alert, normal mood/affect, oriented x 3, + pertinent finding (no focal deficit on gross examination) Skin: normal color, warm/dry, + pertinent finding (2 x 1 cm superficial ulceration on dorsum of left hand. no drainage. no surrounding erythema or swelling. ) Hospital Course ATRIAL FIBRILLATION WITH RVR Sent to ER after AF RVR noted at dialysis; hx PAF; off Coumadin since 04/2016 when admitted for GIB Possibly triggered by infection (pneumonia)? TSH normal serial Ce negative echo no change from previous was on Cardizem drip which is stooped now as rates are under control on iv heparin seen by cardiology and appreciate inputs continue current meds inr still 1.7 today discharged on Coumadin Coumadin clinic notified f/u with pcp and cardiology HCAP possible gm negative, mrsa pneumonia? 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 Consulted nephrology COPD/ CHRONIC RESPIRATORY FAILURE stable on home meds PRN Xopenex/ Atrovent nebs On Advair and Incruse Ellipta inhalers On chronic oxygen 2.5 L NC continuous Smoking cessation advised HYPERTENSION BP is stable On amlodipine, clonidine, furosemide, losartan will monitor DM TYPE 2 Continue home Lantus Novolog sliding scale RECENT LEFT HAND INFECTED WOUND/ CELLULITIS Improved with outpatient Keflex course- wound still present but no sign of cellulitis CHRONIC ANEMIA Hg in 10's, stable from baseline Discharged home Total time spent on discharge = 40 MINUTES This includes examination of the patient, discharge planning, medication reconciliation, and communication with other providers. Discharge Instructions Discharge Instructions Date of Service Nov 01, 2016. Admission Reason for Admission: Atrial Fibrillation With Rvr Discharge Discharge Diagnosis / Problem: a fib with rvr, pneumonia Discharge Goals Goal(s): Decrease discomfort, Improve function Activity Recommendations Activity Limitations: resume your previous activity . Instructions / Follow-Up Instructions / Follow-Up FOLLOWUP WITH FAMILY DOCTOR ON October AT 1PM. FOLLOWUP WITH CARDIOLOGY IN 2-3 WEEKS. TO TAKE COUMADIN 10MG PO DAILY IN EVENING UNTIL FURTHER RECOMMENDATIONS FROM COUMADIN CLINIC. LAB: PT/INR IN 2-3 DAYS AND FOLLOW RESULTS WITH COUMADIN CLINIC. BASED ON LAB RESULTS FURTHER RECOMMENDATIONS BY COUMADIN CLINIC REGARDING COUMADIN DOSING. NOTIFIED COUMADIN CLINIC. Current Hospital Diet Patient's current hospital diet: AHA Diet (Heart Healthy), Diabetes Type 2 Diet , Renal Diet, Low Sodium Diet (2gm Na) Discharge Diet Recommended Diet: AHA Diet (Heart Healthy), Diabetes Type 2 Diet, Renal Diet Pending Studies Studies pending at discharge: no Medical Emergencies . Who to Call and When: Medical Emergencies: If at any time you feel your situation is an emergency, please call 911 immediately. . Non-Emergent Contact Non-Emergency issues call your: Primary Care Provider . . "Provider Documentation" section prepared by Cameron Thakur. .
[2016-11-03] MEDS ORDERED: ERGOCALCIFEROL 50,000 INTER.UNIT CAP PO SCH (09:00)
== END 2016-11-01 13:15 | disposition home or self-care (01) | DRG 177 ==
LOC: EDBD 10:30 → C.EDA 10:32 → C.2T 12:42 → EDBEDREQ 12:49 → ENRESERV 13:48
PROVIDERS: ADMIT Internal Medicine; ATTEND Internal Medicine
PROC: 5A1D00Z (ICD-10-PCS; principal; 2016-10-30)
DX: J15.6 Pneumonia due to other Gram-negative bacteria (principal); N18.6 End stage renal disease; J96.10 Chronic respiratory failure, unspecified whether with hypoxia or hypercapnia; B00.51 Herpesviral iridocyclitis; I12.0 Hypertensive chronic kidney disease with stage 5 chronic kidney disease or end stage renal disease; I48.0 Paroxysmal atrial fibrillation; F17.210 Nicotine dependence, cigarettes, uncomplicated; J44.9 Chronic obstructive pulmonary disease, unspecified; Z79.4 Long term (current) use of insulin; I50.9 Heart failure, unspecified; E11.9 Type 2 diabetes mellitus without complications; Z99.2 Dependence on renal dialysis; I34.0 Nonrheumatic mitral (valve) insufficiency; E87.6 Hypokalemia; D35.00 Benign neoplasm of unspecified adrenal gland; D63.1 Anemia in chronic kidney disease

== ENCOUNTER 2016-11-30 11:28 | Inpatient (IN) | payer OTHER ==
[~2016-11-30] VITALS: Ht 167.6 cm; Wt 96.9 kg
[~2016-11-30 11:28] MED LIST changes: +ACET325T82 PO; +B-CO1CAP17 PO; +CALC667C4 PO; +LCTX PO; -LMTHP PO; -LOSA100T65 PO; +LOSA1TAB38 PO; -ONDA8TAB12 PO; -PRD20 PO; -PRT/40 PO; +PSEU1TAB PO; +UMEC1INH INH; +VALA1TAB2 PO; +WARF5TAB90 PO
[2016-11-30 11:39] VITALS: Ht 167.6 cm; Wt 96.9 kg
[2016-11-30] MEDS ORDERED: METO25TA56 PO (12:16)
[2016-11-30] MEDS ORDERED: LACT1TAB26 PO (12:16)
[2016-11-30] MEDS ORDERED: SODIUM CHLORIDE 0.9% 500ML 500 ML IV STA (12:17)
[2016-11-30] MEDS ORDERED: LOSARTAN POTASSIUM 50 MG TAB PO STA (12:25)
[2016-11-30] MEDS ORDERED: METOPROLOL TARTRATE 50 MG TAB PO STA (12:25)
[2016-11-30] MEDS ORDERED: AMLODIPINE BESYLATE 5 MG TAB PO ONE (12:30)
[2016-11-30] MEDS ORDERED: CLONIDINE HCL 0.1 MG TAB PO ONE (12:30)
[2016-11-30 13:01] LABS: BASO % 0.2 %; BASO ABS # 0.02 K/uL (0-0.2); BLOOD UREA NITROGEN 17 mg/dl (7-18); BUN/CREATININE RATIO 4.2 (10-20); CALCIUM 8.9 mg/dl (8.5-10.1); CARBON DIOXIDE 32 mmol/L (21-32); CHLORIDE 97 mmol/L (98-107); EOS % 1.1 %; GLUCOSE 158 mg/dl (70-99); HEMATOCRIT 22.6 % (37-47); IG% 0.5 %; LYMPH % 11.1 %; LYMPH ABS # 0.92 K/uL (1.2-3.4); MEAN CELL VOLUME 111.9 fL (80-100); MEAN CORPUSCULAR HEMOGLOBIN 37.1 pg (25-34); MEAN CORPUSCULAR HGB CONC 33.2 g/dl (32-36); MEAN PLATELET VOLUME 9.5 fL (7.4-10.4); MONO % 6.1 %; PLATELET COUNT 175 K/uL (130-400); RED BLOOD COUNT 2.02 M/uL (4.2-5.4); SODIUM 137 mmol/L (136-145)
--- NOTE | 2016-11-30 13:04 | DIAGNOSTIC IMAGING REPORT ---
SINGLE VIEW CHEST CLINICAL HISTORY: Atypical chest pain. FINDINGS: An AP, portable, upright chest radiograph is compared to study dated 10/26/2016. The examination is degraded by portable technique, motion artifact, and patient rotation. The cardiomediastinal heart is mildly enlarged and there is atherosclerotic calcification of the thoracic aorta. The pulmonary vasculature is noncongested. Atelectasis is noted at the left lung base. The lungs and pleural spaces are otherwise clear. No pneumothorax is seen. The bony thorax is grossly intact. IMPRESSION: Cardiomegaly with no acute cardiopulmonary abnormality. Electronically signed by: Luigi García M.D. 11/30/2016 1:03 PM Dictated Date/Time: 11/30/2016 1:02 PM
[2016-11-30 13:06] LABS: ALKALINE PHOSPHATASE 95 U/L (45-117); ALT/SGPT 22 U/L (12-78); AST/SGOT 18 U/L (15-37); INR 1.5 (0.9-1.1); PARTIAL THROMBOPLASTIN RATIO 1.4; PROTHROMBIN TIME (PATIENT) 15.9 SECONDS (9.0-12.0)
[2016-11-30 13:24] LABS: ANISOCYTOSIS PRESENT; COMPLETE YES
--- NOTE | 2016-11-30 13:38 | EMERGENCY ROOM VISIT NOTE ---
History Report prepared by Sebastian: Boogie Quintanilla Under the Supervision of: Dr. Hai Huff D.O. First contact with patient: 12:13 Chief Complaint: RESPIRATORY PROBLEMS Stated Complaint: SHORTNESS OF BREATH Nursing Triage Summary: PT PRESENTS TO ED VIA ALS FROM [facility] WITH C/O SOB. PT STATES BEING SOB FOR PAST SEVERAL DAYS AND WORSE TODAY AFTER DIALYSIS. PT DENIES ANY CP. PT DID COMPLETE DIALYSIS. PT STATES HX COPD, AFIB History of Present Illness The patient is a 71 year old female who presents to the Emergency Room by EMS with complaints of an episode of heart palpitations occurring shortly prior to arrival. She notes that she had low blood pressure as well with the episode. She is a dialysis patient, and states that the episode occurred while receiving dialysis. The patient also complains of shortness of breath and dry cough. She is on 2.5 L of supplemental oxygen at home. She feels that she likely has some leg swelling and notes "my shoes felt tight this morning". The patient states that she has not had any of her morning medication today, because she normally takes the medications after dialysis. She is on Warfarin for A-fib. She denies any fevers. Source of History: patient Onset: shortly prior to arrival Quality: other (palpitations) Timing: other (episode) Associated Symptoms: + cough (dry), + SOB, No fevers Note: Additional symptoms: leg swelling. Review of Systems See HPI for pertinent positives & negatives. A total of 10 systems reviewed and were otherwise negative. 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 (14) History of Helicobacter pylori infection (15) Hypertension Nos (16) Moderate mitral regurgitation (17) Obesity (18) Osteoarthritis (19) Pancreatic cyst (20) Psoriasis (21) Renal cyst (22) SOB (shortness of breath) Surgical Problems: (1) H/O colonoscopy (2) H/O nasal polypectomy (3) History of cataract surgery (4) S/P appendectomy (5) S/P cholecystectomy (6) S/P left oophorectomy (7) S/P ASH (total abdominal hysterectomy) Family History Diabetes mellitus FATHER MOTHER BROTHER FH: cancer BROTHER FH: heart disease FATHER Hypertension BROTHER Kidney disease BROTHER Social History Smoking Status: Unknown if Ever Smoked Drug Use: none Marital Status: Housing Status: lives with family Occupation Status: retired Current/Historical Medications Scheduled Amlodipine (Norvasc), 10 MG PO QAM Calcium Acetate (Phoslo 667 Mg), 2 CAP PO TIDM Clonidine Hcl (Catapres), 0.1 MG PO BID Cyanocobalamin (Cyanocobalamin), 1,000 MCG IM MONTHLY Ergocalciferol (Vitamin D 01885 Unit), 50,000 UNIT PO MONTHLY Fluticasone Prop/Salmeterol (Advair Diskus 250/50 60 Dose), 2 PUFF INH BID Furosemide (Furosemide), 40 MG PO DAILY Home O2 Therapy (Oxygen), 2.5 LITERS NA CONTINOUS Insulin Aspart (Novolog Flexpen), 2-3 UNITS SQ TIDM Insulin Glargine (Lantus), 26 UNITS SC QAM Lactobacillus (Lactobacillus), 1 TAB PO UD Lactobacillus Acidophilus (Floranex), 4 TAB PO TIDM Levofloxacin (Levofloxacin), 500 MG PO Q48H Losartan Potassium (Cozaar), 100 MG PO DAILY Metoprolol Tartrate (Lopressor) (Lopressor), 25 MG PO BID Prednisolone Acetate (Ophth) (Pred Forte 1% Oph), 1 DROPS OPL DAILY Umeclidinium [place] (Incruse Ellipta), 1 PUFF INH DAILY Valacyclovir Hcl (Valtrex), 1,000 MG PO DAILY Vitamin B Cmplx/Vitc/Folic Ac (Nephrocaps), 1 CAP PO DAILY Warfarin Sodium (Coumadin), 10 MG PO DAILY Scheduled PRN Acetaminophen (Apap), 650 MG PO Q6 PRN for Pain Albuterol Hfa (Ventolin Hfa), 2 PUFFS INH Q4 PRN for SOB/Wheezing Ipratropium-Albuterol (Duoneb), 1 TREATMENT INH QID PRN for SOB/Wheezing Lidocaine-Prilocaine (Vvhjypmbe-Vobenmpefr-Wman 2.5-2.5 %), 1 APPLN TOP UD PRN for PRIOR TO DIALYSIS Pseudoephedrine-Guaifenesin (Cvs Mucus D Extended Rele 60-600 mg), 1 TAB PO Q12 PRN for Nasal Congestion Miscellaneous Medications Epoetin Hakan (Procrit) Allergies Coded Allergies: No Known Allergies (Verified , 10/26/16) Physical Exam Vital Signs Date Time Temp Pulse Resp B/P (MAP) Pulse Ox O2 Delivery O2 Flow Rate FiO2 11/30/16 13:18 108 20 129/79 11/30/16 12:48 102 24 138/95 97 Nasal Cannula 2.0 11/30/16 12:29 110 22 129/74 97 Nasal Cannula 2.0 11/30/16 12:28 98 Nasal Cannula 11/30/16 12:28 98 Nasal Cannula 2.0 11/30/16 11:50 120 11/30/16 11:39 36.8 103 20 148/78 95 Nasal Cannula 2.0 Physical Exam GENERAL: Patient is awake, alert, and in no acute distress. Patient is resting comfortably and showing no signs of anxiety EYES: The conjunctivae are clear. The pupils are round and reactive. EARS, NOSE, MOUTH AND THROAT: The nose is without any evidence of any deformity. Mucous membranes are moist tongue is midline NECK: The neck is nontender and supple. RESPIRATORY: Diminished with rales throughout. No conversational dyspnea or tachypnea noted. CARDIOVASCULAR: Tachycardic and irregular to auscultation. No definite murmurs. GASTROINTESTINAL: The abdomen is soft. Bowel sounds are present in all quadrants. Abdomen is nontender RECTAL: Brown stool which was strongly heme positive. MUSCULOSKELETAL/EXTREMITIES: There is no evidence of gross deformity full range of motion is noted in the hips and shoulders. Trace pedal edema bilaterally. SKIN: There is no obvious evidence of any rash. There are no petechiae, pallor or cyanosis noted. NEUROLOGIC: Patient is awake alert and oriented x3 strength is symmetric patellar reflexes are 2+ bilaterally Medical Decision & Procedures ER Provider Diagnostic Interpretation: X-ray results as stated below per interpretation by me and the radiologist. SINGLE VIEW CHEST FINDINGS: An AP, portable, upright chest radiograph is compared to study dated 10/26/2016. The examination is degraded by portable technique, motion artifact, and patient rotation. The cardiomediastinal heart is mildly enlarged and there is atherosclerotic calcification of the thoracic aorta. The pulmonary vasculature is noncongested. Atelectasis is noted at the left lung base. The lungs and pleural spaces are otherwise clear. No pneumothorax is seen. The bony thorax is grossly intact. IMPRESSION: Cardiomegaly with no acute cardiopulmonary abnormality. Electronically signed by: Luigi García M.D. 11/30/2016 1:03 PM Laboratory Results 11/30/16 11:04 Red Blood Count 2.02, Mean Corpuscular Volume 111.9, Mean Corpuscular Hemoglobin 37.1, Mean Corpuscular Hemoglobin Concent 33.2, Mean Platelet Volume 9.5, Neutrophils (%) (Auto) 81.0, Lymphocytes (%) (Auto) 11.1, Monocytes (%) ( Auto) 6.1, Eosinophils (%) (Auto) 1.1, Basophils (%) (Auto) 0.2, Neutrophils # ( Auto) 6.72, Lymphocytes # (Auto) 0.92, Monocytes # (Auto) 0.51, Eosinophils # ( Auto) 0.09, Basophils # (Auto) 0.02 11/30/16 11:04 Test 11/30/16 11:04 White Blood Count 8.30 K/uL (4.8-10.8) Red Blood Count 2.02 M/uL (4.2-5.4) Hemoglobin 7.5 g/dL (12.0-16.0) Hematocrit 22.6 % (37-47) Mean Corpuscular Volume 111.9 fL (80-100) Mean Corpuscular Hemoglobin 37.1 pg (25-34) Mean Corpuscular Hemoglobin Concent 33.2 g/dl (32-36) Platelet Count 175 K/uL (130-400) Mean Platelet Volume 9.5 fL (7.4-10.4) Neutrophils (%) (Auto) 81.0 % Lymphocytes (%) (Auto) 11.1 % Monocytes (%) (Auto) 6.1 % Eosinophils (%) (Auto) 1.1 % Basophils (%) (Auto) 0.2 % Neutrophils # (Auto) 6.72 K/uL (1.4-6.5) Lymphocytes # (Auto) 0.92 K/uL (1.2-3.4) Monocytes # (Auto) 0.51 K/uL (0.11-0.59) Eosinophils # (Auto) 0.09 K/uL (0-0.5) Basophils # (Auto) 0.02 K/uL (0-0.2) RDW Standard Deviation 75.0 fL (36.4-46.3) RDW Coefficient of Variation 18.2 % (11.5-14.5) Immature Granulocyte % (Auto) 0.5 % Immature Granulocyte # (Auto) 0.04 K/uL (0.00-0.02) Anisocytosis PRESENT Prothrombin Time 15.9 SECONDS (9.0-12.0) Prothromb Time International Ratio 1.5 (0.9-1.1) Activated Partial Thromboplast Time 36.2 SECONDS (21.0-31.0) Partial Thromboplastin Ratio 1.4 Anion Gap 8.0 mmol/L (3-11) Est Creatinine Clear Calc Drug Dose 16.3 ml/min Estimated GFR () 12.8 Estimated GFR (Non- 11.1 BUN/Creatinine Ratio 4.2 (10-20) Calcium Level 8.9 mg/dl (8.5-10.1) Magnesium Level 2.0 mg/dl (1.8-2.4) Total Bilirubin 0.3 mg/dl (0.2-1) Direct Bilirubin 0.1 mg/dl (0-0.2) Aspartate Amino Transf (AST/SGOT) 18 U/L (15-37) Alanine Aminotransferase (ALT/SGPT) 22 U/L (12-78) Alkaline Phosphatase 95 U/L (45-117) Troponin I < 0.015 ng/ml (0-0.045) Total Protein 6.8 gm/dl (6.4-8.2) Albumin 3.2 gm/dl (3.4-5.0) Lipase 103 U/L (73-393) Laboratory results per my review. Medications Administered Medications (Trade) Dose Ordered Sig/Joan Route Start Time Stop Time Status Last Admin Dose Admin Sodium Chloride 500 ml @ 999 mls/hr Q31M STAT IV 11/30/16 12:17 11/30/16 12:47 DC 11/30/16 12:31 999 MLS/HR Amlodipine Besylate (Norvasc Tab) 10 mg NOW ONCE PO 11/30/16 12:30 11/30/16 12:31 DC 11/30/16 12:35 10 MG Clonidine HCl (Catapres Tab) 0.1 mg NOW ONCE PO 11/30/16 12:30 11/30/16 12:31 DC 11/30/16 12:35 0.1 MG Losartan Potassium (coZAAR TAB) 100 mg ONE STAT PO 11/30/16 12:25 11/30/16 12:27 DC 11/30/16 12:47 100 MG Metoprolol Tartrate (Lopressor Tab) 25 mg NOW STAT PO 11/30/16 12:25 11/30/16 12:27 DC 11/30/16 12:36 25 MG ECG Indication: SOB/dyspnea Rate (beats per minute): 127 Rhythm: atrial fibrillation Findings: ST depression (diffuse), other (No PVCs. ) Comparison ECG Date: October 27, 2016 and October 26, 2016 Change: No change from October 26, 2016. ST abnormalities are new compared to October 27, 2016. ED Course 1216: The patient was evaluated in room B3A. A complete history and physical examination were performed. 1217: Ordered NSS 500 ml @ 999 mls/hr IV 1225: Ordered Lopressor Tab 25 mg PO, Cozaar Tab 100 mg PO. 1230: Ordered Catapres Tab 0.1 mg PO, Norvasc Tab 10 mg PO. 1320: Upon reevaluation, the patient is resting comfortably. I discussed results and treatment plan with her. She verbalizes agreement and understanding. I spoke with Dr. Hyatt of the [facility]. The patient will be evaluated for further management and care. Medical Decision Differential diagnosis: Etiologies such as premature contractions, electrolyte abnormality, cardiac dysrhythmia, thyroid dysfunction, pulmonary embolism, infection, gastrointestinal, as well as others were entertained. Nursing notes reviewed. Additional history was obtained from the prehospital personnel. The patient is a 71-year-old female who is a history of end-stage renal disease who currently receives dialysis who presented to the emergency department for an evaluation of difficulty breathing and palpitations. The patient has a history of COPD and currently is on supplemental oxygen at home. She did not take her morning medications for her atrial fibrillation because she normally takes them after dialysis. The patient was not hypoxic on her supplemental ox and. She was given her outpatient medications in the emergency department. She was reevaluated multiple times. The patient was found have a low hemoglobin compared to her baseline. Her stool revealed heme positive brown stool. I discussed the patient's laboratory radiographic studies with her. I also discussed her case with the on-call [facility] hospitalist group. They've agreed to evaluate the patient in the emergency department for further management and disposition. Medication Reconcilliation Current Medication List: was personally reviewed by me Blood Pressure Screening Patient's blood pressure: Elevated blood pressure Blood pressure disposition: Elevated BP felt to be situational Consults Time Called: 1318 Consulting Physician: Dr. Olena Marrero Returned Call: [phone] I discussed the patient's case with Dr. Hyatt. The patient will be evaluated for further management. Impression Primary Impression: GI bleed Additional Impressions: Anemia Rapid atrial fibrillation Scribe Attestation The scribe's documentation has been prepared under my direction and personally reviewed by me in its entirety. I confirm that the note above accurately reflects all work, treatment, procedures, and medical decision making performed by me. Departure Information Dispostion Being Evaluated By Hospitalist Referrals Noam Armando M.D. (PCP) Patient Instructions My [facility] Problem Qualifiers
[2016-11-30] MEDS ORDERED: ONDANSETRON INJ 2 MG/ML 2 ML VIAL IV PRN (14:00)
[2016-11-30] MEDS ORDERED: ACETAMINOPHEN 325 MG TAB PO PRN ×2 (14:00→14:30)
[2016-11-30] MEDS ORDERED: GLUCOSE 40% GEL 15 GM TUBE PO PRN (14:30)
[2016-11-30] MEDS ORDERED: GLUCAGON FOR INJ 1 MG VIAL SQ PRN (14:30)
[2016-11-30] MEDS ORDERED: DEXTROSE 50% 50 ML SYR IV PRN (14:30)
[2016-11-30] MEDS ORDERED: ALBUTEROL HFA 8 GM INHALER INH PRN (14:30)
[2016-11-30] MEDS ORDERED: ALBUT/IPRATROP 3MG/0.5MG NEB 3 ML VIAL INH PRN (14:30)
[2016-11-30] MEDS ORDERED: GLUCOSE 10 TABS/TUBE PO PRN (14:30)
[2016-11-30] MEDS ORDERED: POLYETHYLENE (MIRALAX) 17 GM PACK PO PRN (14:45)
--- NOTE | 2016-11-30 14:59 | History and Physical ---
History & Physical Date & Time of Service: Nov 30, 2016 at 14:32 Chief Complaint: Shortness Of Breath Primary Care Physician: Noam Armando M.D. History of Present Illness Source: patient, clinic records, hospital records Patient is a 71 yo female who presented to the ER for complaints of SOB, rapid heart rate, and not feeling well after her scheduled dialysis session this morning. She was was told her HR was high and irregular. The patient reports she felt somewhat "funny" this AM, also stating she felt a little lightheaded and very weak all over this morning even before she left the house to go to dialysis. No complaints of melena or hematochezia. She had diarrhea a couple of weeks ago but that has improved. She states she has been taking the same medications she was discharged on (from 11/01). She produces very little urine but denies any changes to this or to her bowel habits. She states she has weakness of bilateral LE which seems worse at the end of day and seems to worsen from distal to proximal LE. She remains on her continuous oxygen via NC at 2.5L. She denies any fever, chills, diaphoresis, N/V, BETANCOURT, vertigo, syncope, falls, trauma. She states she has been eating and drinking normally with a good appetite. Prior to dialysis this AM she had some LE edema and mild SOB which she does develop right before dialysis is due. She denies any CP, palpitations, cough, abdominal pain, or nasal symptoms. Denies any visual changes. 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 (12) History of Helicobacter pylori infection Status: Chronic (13) Hypertension Nos Status: Chronic (14) Moderate mitral regurgitation Permanent Comment: moderate to severe on 12/2015 echo Status: Chronic (15) Obesity Status: Chronic (16) Osteoarthritis Status: Chronic (17) Pancreatic cyst Status: Chronic (18) Psoriasis Status: Chronic (19) Renal cyst Status: Chronic Surgical Problems: (1) H/O colonoscopy Permanent Comment: 2005, hyperplastic polyps repeat in 10 years Status: Chronic (2) H/O nasal polypectomy Status: Chronic (3) History of cataract surgery Status: Chronic (4) S/P appendectomy Permanent Comment: 1971 Status: Chronic (5) S/P cholecystectomy Permanent Comment: 1971 Status: Chronic (6) S/P left oophorectomy Permanent Comment: 1981 Status: Chronic (7) S/P ASH (total abdominal hysterectomy) Permanent Comment: For Fibroids Status: Resolved Family History Diabetes mellitus FATHER MOTHER BROTHER FH: cancer BROTHER FH: heart disease FATHER Hypertension BROTHER Kidney disease BROTHER Social History Smoking Status: Unknown if Ever Smoked Drug Use: none Marital Status: Housing status: lives alone Occupational Status: retired Immunizations History of Influenza Vaccine: Yes Influenza Vaccine Date: Dec 26, 2014 History of Tetanus Vaccine?: Yes Tetanus Immunization Date: August 04, 2010 History of Pneumococcal: Yes Pneumococcal Date: Feb 24, 2015 Multi-Drug Resistant Organisms History of MDRO: No Allergies Coded Allergies: No Known Allergies (Verified , 10/26/16) Home Medications Scheduled Amlodipine (Norvasc), 10 MG PO QAM Calcium Acetate (Phoslo 667 Mg), 2 CAP PO TIDM Clonidine Hcl (Catapres), 0.1 MG PO BID Cyanocobalamin (Cyanocobalamin), 1,000 MCG IM MONTHLY Ergocalciferol (Vitamin D 43632 Unit), 50,000 UNIT PO MONTHLY Fluticasone Prop/Salmeterol (Advair Diskus 250/50 60 Dose), 2 PUFF INH BID Furosemide (Furosemide), 40 MG PO DAILY Home O2 Therapy (Oxygen), 2.5 LITERS NA CONTINOUS Insulin Aspart (Novolog Flexpen), 2-3 UNITS SQ TIDM Insulin Glargine (Lantus), 26 UNITS SC QAM Lactobacillus (Lactobacillus), 1 TAB PO UD Lactobacillus Acidophilus (Floranex), 4 TAB PO TIDM Levofloxacin (Levofloxacin), 500 MG PO Q48H Losartan Potassium (Cozaar), 100 MG PO DAILY Metoprolol Tartrate (Lopressor) (Lopressor), 25 MG PO BID Prednisolone Acetate (Ophth) (Pred Forte 1% Oph), 1 DROPS OPL DAILY Umeclidinium [place] (Incruse Ellipta), 1 PUFF INH DAILY Valacyclovir Hcl (Valtrex), 1,000 MG PO DAILY Vitamin B Cmplx/Vitc/Folic Ac (Nephrocaps), 1 CAP PO DAILY Warfarin Sodium (Coumadin), 10 MG PO DAILY Scheduled PRN Acetaminophen (Apap), 650 MG PO Q6 PRN for Pain Albuterol Hfa (Ventolin Hfa), 2 PUFFS INH Q4 PRN for SOB/Wheezing Ipratropium-Albuterol (Duoneb), 1 TREATMENT INH QID PRN for SOB/Wheezing Lidocaine-Prilocaine (Qhjlbnwnr-Yviaatgxio-Hfke 2.5-2.5 %), 1 APPLN TOP UD PRN for PRIOR TO DIALYSIS Pseudoephedrine-Guaifenesin ([facility] Mucus D Extended Rele 60-600 mg), 1 TAB PO Q12 PRN for Nasal Congestion Miscellaneous Medications Epoetin Hakan (Procrit) Review of Systems A full 10 systems were reviewed; please the HPI for pertinent positives and negatives. Physical Exam Vital Signs Date Time Temp Pulse Resp B/P (MAP) Pulse Ox O2 Delivery O2 Flow Rate FiO2 11/30/16 14:02 106 22 118/68 98 Nasal Cannula 2.0 11/30/16 13:49 109 11/30/16 13:38 Nasal Cannula 2.0 11/30/16 13:18 108 20 129/79 11/30/16 12:48 102 24 138/95 97 Nasal Cannula 2.0 11/30/16 12:29 110 22 129/74 97 Nasal Cannula 2.0 11/30/16 12:28 98 Nasal Cannula 11/30/16 12:28 98 Nasal Cannula 2.0 11/30/16 11:50 120 11/30/16 11:39 36.8 103 20 148/78 95 Nasal Cannula 2.0 General Appearance: WD/WN, no apparent distress Head: normocephalic, atraumatic Eyes: PERRL, EOMI ENT: hearing grossly normal Neck: supple, no JVD, no carotid bruits, trachea midline Respiratory/Chest: chest non-tender, no respiratory distress, no accessory muscle use, + crackles Cardiovascular: no edema, no gallop, no JVD, no murmur, + irregularly irregular Abdomen/GI: normal bowel sounds, non tender, soft, no organomegaly Back: normal inspection, no CVA tenderness Extremities/Musculoskelatal: normal capillary refill, no pedal edema, + pertinent finding (cramping in calf/ankle) Neurologic/Psych: no motor/sensory deficits, alert, normal mood/affect, oriented x 3 Skin: normal color, warm/dry, no rash Diagnostics Laboratory Results Results Past 24 Hours Test 11/30/16 11:04 Range/Units White Blood Count 8.30 4.8-10.8 K/uL Red Blood Count 2.02 4.2-5.4 M/uL Hemoglobin 7.5 12.0-16.0 g/dL Hematocrit 22.6 37-47 % Mean Corpuscular Volume 111.9 80-100 fL Mean Corpuscular Hemoglobin 37.1 25-34 pg Mean Corpuscular Hemoglobin Concent 33.2 32-36 g/dl Platelet Count 175 130-400 K/uL Mean Platelet Volume 9.5 7.4-10.4 fL Neutrophils (%) (Auto) 81.0 % Lymphocytes (%) (Auto) 11.1 % Monocytes (%) (Auto) 6.1 % Eosinophils (%) (Auto) 1.1 % Basophils (%) (Auto) 0.2 % Neutrophils # (Auto) 6.72 1.4-6.5 K/uL Lymphocytes # (Auto) 0.92 1.2-3.4 K/uL Monocytes # (Auto) 0.51 0.11-0.59 K/uL Eosinophils # (Auto) 0.09 0-0.5 K/uL Basophils # (Auto) 0.02 0-0.2 K/uL RDW Standard Deviation 75.0 36.4-46.3 fL RDW Coefficient of Variation 18.2 11.5-14.5 % Immature Granulocyte % (Auto) 0.5 % Immature Granulocyte # (Auto) 0.04 0.00-0.02 K/uL Anisocytosis PRESENT Prothrombin Time 15.9 9.0-12.0 SECONDS Prothromb Time International Ratio 1.5 0.9-1.1 Activated Partial Thromboplast Time 36.2 21.0-31.0 SECONDS Partial Thromboplastin Ratio 1.4 Sodium Level 137 136-145 mmol/L Potassium Level 3.0 3.5-5.1 mmol/L Chloride Level 97 98-107 mmol/L Carbon Dioxide Level 32 21-32 mmol/L Anion Gap 8.0 3-11 mmol/L Blood Urea Nitrogen 17 7-18 mg/dl Creatinine 3.90 0.60-1.20 mg/dl Est Creatinine Clear Calc Drug Dose 16.3 ml/min Estimated GFR () 12.8 Estimated GFR (Non- 11.1 BUN/Creatinine Ratio 4.2 10-20 Random Glucose 158 70-99 mg/dl Calcium Level 8.9 8.5-10.1 mg/dl Magnesium Level 2.0 1.8-2.4 mg/dl Total Bilirubin 0.3 0.2-1 mg/dl Direct Bilirubin 0.1 0-0.2 mg/dl Aspartate Amino Transf (AST/SGOT) 18 15-37 U/L Alanine Aminotransferase (ALT/SGPT) 22 12-78 U/L Alkaline Phosphatase 95 45-117 U/L Troponin I < 0.015 0-0.045 ng/ml Total Protein 6.8 6.4-8.2 gm/dl Albumin 3.2 3.4-5.0 gm/dl Lipase 103 73-393 U/L Impression Assessment and Plan SHORTNESS OF BREATH: improving -CXR mentions cardiomegaly but no other evidence of congestion -symptoms slightly better since dialysis today, requiring oxygen at her usual baseline rate -no evidence of pneumonia/infectious etiology or COPD -could also be related to the worsened anemia and the atrial fibrillation with RVR ACUTE ON CHRONIC ANEMIA: has anemia of chronic disease due to ESRD -Hb 7.5 with hemoccult positive -baseline Hb 9-10 per records -recheck Hb tonight and again in AM HEMOCCULT POSITIVE STOOL: possible acute or subacute bleed -had diarrhea a couple weeks ago, but denies bloody or dark stools -baseline Hb is 9-10, today Hgb is 7.5 with heme positive stools -will hold coumadin -Consult GI -last year patient was treated for H. pylori infection at that time for 14 days (course completed) -underwent previous endoscopy -continue PPI ESRD on HD: -has HD every Tuesday, , Tuesday; s/p outpatient dialysis this AM -Nephrology consulted -will likely transfuse PRBC's with HD -Procrit as per Nephro -strict I's and O's, daily weights PAROXYSMAL ATRIAL FIB: with RVR today -on Coumadin, followed by coag clinic; hold for now pending GI evaluation -INR subtherapeutic at 1.5 -continue b-mariana (patient normally takes this after dialysis) -monitor in tele COPD: -on continuous O2; no changes, still on 2-2.5L -history of tobacco use -continue home inhalers -not in exacerbation HTN: -resume losartan/amlodipine/clonidine/metoprolol with hold parameters due to anemia and possible GI bleed -monitor DM TYPE II: -continue Lantus + Novolog sliding scale -decreased dose of lantus, titrate upward as stricter control needed -BSG AC and HS Level of Care Telemetry Advanced Directives Existing Living Will: No Existing Power of Medical Lab Specialist: No Resuscitation Status FULL RESUSCITATION (If meaningful chance of recovery; does not want prolonged life support) VTE Prophylaxis VTE Risk Assessment Done? Y/N: Yes Risk Level: Moderate Given or contraindicated: SCD's
--- NOTE | 2016-11-30 15:15 | Gastrointestinal Consultation ---
Gastrointestinal Consultation Date of Consultation: Nov 30, 2016 Attending Physician: Jacqueline Hyatt Consulting Physician: Tuan Swanson Reason for Consultation: Anemia, FOBT positive History of Present Illness Patient is a 71 year old female w PMHx of Afib on Coumadin, adrenal adenoma, ESRD on hemodialysis, CHF, COPD, DM II, HTN, OA, psoriasis who presented to ED from HD place after complaining of palpitation, and having hypotension while receiving HD. She has associated SOB, and noted leg swelling recently. At home on O2 2L. Upon eval, she is hemodynamically stable, BP 140s/70s, O2 98% on 2L NC. She is somewhat stuporous today though able to answer questions appropriately when prompted. Labs showed anemia w Hgb 7.5, baseline 10. INR 1.5 , CMP showed K of 3, Cr 3.9, normal BUN 17. LFTs and lipase normal. She had CXR which showed cardiomegaly otherwise unremarkable. She denies any n/v, appetite/ bowel habit changes. Denies any hematemesis, dark or tarry stools. Last BM this AM which she notes was dark brown in color. She had a rectal exam by ED physician which showed dark brown stools, + FOBT. Last colonoscopy 04/2015 showed TA and hyperplastic polyps. EGD 02/10 w evidence of gastritis and + Hpylori on bx, but she doesn't recall ever being treated for this infection. Past Medical/Surgical History Medical Problems: (1) Anemia Status: Acute (2) Chest pain Status: Acute (3) CHF (congestive heart failure) Status: Acute (4) CHF (congestive heart failure) Status: Acute (5) COPD (chronic obstructive pulmonary disease) Status: Acute (6) COPD exacerbation Status: Acute (7) End stage renal disease Status: Acute (8) End stage renal disease on dialysis Status: Acute (9) GI bleed Status: Acute (10) GI bleed Status: Acute (11) Hemoptysis Status: Acute (12) Hypoxemia Status: Acute (13) Hypoxia Status: Acute (14) Left lower lobe pneumonia Status: Acute (15) PNA (pneumonia) Status: Acute (16) Pneumonia Status: Acute (17) Pulmonary congestion Status: Acute (18) Rapid atrial fibrillation Status: Acute (19) Shortness of breath Status: Acute (20) Supratherapeutic INR Status: Acute Past Medical History: See above. Past Surgical History: Nasal polypectomy, cataract surgery, appendectomy, cholecystectomy, total hysterectomy Family History Diabetes mellitus FATHER MOTHER BROTHER FH: cancer BROTHER FH: heart disease FATHER Hypertension BROTHER Kidney disease BROTHER Social History Smoking Status: Unknown if Ever Smoked Alcohol Use: none Drug Use: none Marital Status: Housing Status: lives with family Occupation Status: retired Allergies Coded Allergies: No Known Allergies (Verified , 10/26/16) Current Medications Home Meds and Scripts Medications Dose Route/Sig Max Daily Dose Days Date Category Dose Instructions Lactobacillus 1 Tab Tab 1 Tab PO UD 11/30/16 Reported Lopressor (Metoprolol Tartrate) 25 Mg Tab 25 Mg PO BID 11/30/16 Reported Coumadin (Warfarin Sodium) 5 Mg Tab 10 Mg PO DAILY 11/01/16 Rx Floranex (Lactobacillus Acidophilus) 1 Tab Tab 4 Tab PO TIDM 7 11/01/16 Rx Levofloxacin 500 Mg Tab 500 Mg PO Q48H 11/01/16 Rx Cvs Mucus D Extended Rele 60-600 mg (Pseudoephedrine-Guaifenesin) 1 Tab Tab 1 Tab PO Q12 PRN 10/26/16 Reported Pred Forte 1% Oph (Prednisolone Acetate (Ophth)) 1 % Neena 1 Drops OPL DAILY 10/26/16 Reported Duoneb (Ipratropium-Albuterol) 3 Ml Nebu 1 Treatment INH QID PRN 10/26/16 Reported Apap (Acetaminophen) 325 Mg Tab 650 Mg PO Q6 PRN 10/26/16 Reported Valtrex (Valacyclovir Hcl) 1 Gm Tab 1,000 Mg PO DAILY 10/26/16 Reported Nephrocaps (Vitamin B Complex/Vit C/Folic Acid) Cap 1 Cap PO DAILY 10/26/16 Reported Phoslo 667 Mg (Calcium Acetate) 667 Mg Cap 2 Cap PO TIDM 10/26/16 Reported Cozaar (Losartan Potassium) 100 Mg Tab 100 Mg PO DAILY 10/26/16 Reported Incruse Ellipta (Umeclidinium [place]) 62.5 Mcg/Inh Inh 1 Puff INH DAILY 10/26/16 Reported Lantus (Insulin Glargine) 100 Unit/Ml Inj 26 Units SC QAM 07/13/16 Reported Furosemide 40 Mg Tab 40 Mg PO DAILY 05/01/16 Reported Nrtbzrsjv-Ywslbteodc-Ibae 2.5-2.5 % (Lidocaine-Prilocaine) 1 Cre Cre 1 Appln TOP UD PRN 05/01/16 Reported APPLY SMALL AMT TO ACCESS SITE 1-2 HOURS BEFORE DIALYSIS. COVER WITH SARAN WRAP Vitamin D 55928 Unit (Ergocalciferol) 50,000 Unit Cap 50,000 Unit PO MONTHLY 05/01/16 Reported 9th Procrit (Epoetin Hakan) 10,000 Units Inj 05/01/16 Reported per dialysis clinic Ventolin Hfa (Albuterol) 200 Puffs/35946 Mcg Aers 2 Puffs INH Q4 PRN 05/01/16 Reported Cyanocobalamin 1,000 Mcg/Ml Inj 1,000 Mcg IM MONTHLY 04/12/16 Reported Oxygen Gas 2.5 Liters NA CONTINOUS 05/15/15 Reported Advair Diskus 250/50 60 Dose (Fluticasone Prop/Salmeterol) 1 Ea Aerp 2 Puff INH BID 05/15/15 Reported Catapres (Clonidine Hcl) 0.1 Mg Tab 0.1 Mg PO BID 05/15/15 Reported Novolog Flexpen (Insulin Aspart) 100 Units/Ml Inj 2-3 Units SQ TIDM 04/01/15 Reported TAKES PER SLIDING SCALE Norvasc (Amlodipine Besylate) 10 Mg Tab 10 Mg PO QAM 09/08/13 Reported Review of Systems Constitutional: + weakness, No fever, No chills Respiratory: + shortness of breath, No cough Cardiac: + palpitations, No chest pain Abdomen: No pain, No nausea, No vomiting, No diarrhea, No GI bleeding Endo: + fatigue Skin: No rash Physical Exam Date Time Temp Pulse Resp B/P (MAP) Pulse Ox O2 Delivery O2 Flow Rate FiO2 11/30/16 14:55 89 20 142/62 98 11/30/16 14:02 106 22 118/68 98 Nasal Cannula 2.0 11/30/16 13:49 109 11/30/16 13:38 Nasal Cannula 2.0 11/30/16 13:18 108 20 129/79 11/30/16 12:48 102 24 138/95 97 Nasal Cannula 2.0 11/30/16 12:29 110 22 129/74 97 Nasal Cannula 2.0 11/30/16 12:28 98 Nasal Cannula 11/30/16 12:28 98 Nasal Cannula 2.0 11/30/16 11:50 120 11/30/16 11:39 36.8 103 20 148/78 95 Nasal Cannula 2.0 General Appearance: WD/WN, no apparent distress Eyes: normal inspection, PERRL, EOMI Neck: supple, no JVD, trachea midline Respiratory/Chest: normal breath sounds, no respiratory distress, no accessory muscle use Cardiovascular: regular rate, rhythm, no gallop, no murmur Abdomen: normal bowel sounds, non tender, soft Extremities: normal inspection, no pedal edema, no calf tenderness Neurologic/Psych: oriented x 3, + depressed affect Skin: normal color, no jaundice, no rash Laboratory Results Last 24 Hours Test 11/30/16 11:04 White Blood Count 8.30 K/uL Red Blood Count 2.02 M/uL Hemoglobin 7.5 g/dL Hematocrit 22.6 % Mean Corpuscular Volume 111.9 fL Mean Corpuscular Hemoglobin 37.1 pg Mean Corpuscular Hemoglobin Concent 33.2 g/dl Platelet Count 175 K/uL Mean Platelet Volume 9.5 fL Neutrophils (%) (Auto) 81.0 % Lymphocytes (%) (Auto) 11.1 % Monocytes (%) (Auto) 6.1 % Eosinophils (%) (Auto) 1.1 % Basophils (%) (Auto) 0.2 % Neutrophils # (Auto) 6.72 K/uL Lymphocytes # (Auto) 0.92 K/uL Monocytes # (Auto) 0.51 K/uL Eosinophils # (Auto) 0.09 K/uL Basophils # (Auto) 0.02 K/uL RDW Standard Deviation 75.0 fL RDW Coefficient of Variation 18.2 % Immature Granulocyte % (Auto) 0.5 % Immature Granulocyte # (Auto) 0.04 K/uL Anisocytosis PRESENT Prothrombin Time 15.9 SECONDS Prothromb Time International Ratio 1.5 Activated Partial Thromboplast Time 36.2 SECONDS Partial Thromboplastin Ratio 1.4 Sodium Level 137 mmol/L Potassium Level 3.0 mmol/L Chloride Level 97 mmol/L Carbon Dioxide Level 32 mmol/L Anion Gap 8.0 mmol/L Blood Urea Nitrogen 17 mg/dl Creatinine 3.90 mg/dl Est Creatinine Clear Calc Drug Dose 16.3 ml/min Estimated GFR () 12.8 Estimated GFR (Non- 11.1 BUN/Creatinine Ratio 4.2 Random Glucose 158 mg/dl Calcium Level 8.9 mg/dl Magnesium Level 2.0 mg/dl Total Bilirubin 0.3 mg/dl Direct Bilirubin 0.1 mg/dl Aspartate Amino Transf (AST/SGOT) 18 U/L Alanine Aminotransferase (ALT/SGPT) 22 U/L Alkaline Phosphatase 95 U/L Troponin I < 0.015 ng/ml Total Protein 6.8 gm/dl Albumin 3.2 gm/dl Lipase 103 U/L Impression Patient is a 71 year old female who presented to ED after noted to be hypotensive during HD session, also c/o palpitation, SOB. Found to be anemic w Hgb around 7, FOBT + but no jennifer GI bleeding noted. Also denies any appetite/ bowel habit changes, n/v, abd pain. Hx of gastritis and Hyplori infection. Hx of Afib on Coumadin, INR on admission 1.5. Plan - Monitor H/H and transfuse prn - Defer electrolyte imbalance management to primary team. - Ok for CL diet today. - Protonix 40mg BID - Check Stool Hpylori Ag; if positive treat - Will follow and decide if endoscopic eval is needed in the next few days. I have seen, examined and agree with the plan as outlined by TAYLOR Rojas as above. - exam reveals soft abd - No signs of bleeding - Has some dyspepsia-if persists will eval with EGD in the AM
[2016-11-30 15:30] VITALS: BP 127/69; PULSE 65; TEMP 36.9; O2SAT 94
[2016-11-30] MEDS: INSULIN ASPART 100 UNITS/ML 3 ML PEN SC SCH ×2 (16:06→21:00)
[2016-11-30] MEDS: CALCIUM ACETATE 667MG GELCAP PO SCH (16:44)
[2016-11-30] MEDS: LACTOBACILLUS ACIDOPHILUS (FLORANEX) TAB PO SCH (16:45)
[2016-11-30 18:42] VITALS: BP 124/68; PULSE 67; TEMP 36.7; O2SAT 96
[2016-11-30] MEDS: FLUTICASONE/SALMETEROL 250/50 (ADVAIR) 14 PUFF/1 INHALER INH SCH (20:30)
[2016-11-30] MEDS: CLONIDINE HCL 0.1 MG TAB PO SCH (20:31)
[2016-11-30] MEDS: METOPROLOL TARTRATE 25 MG TAB PO SCH (20:31)
[2016-11-30] MEDS: PANTOprazole SOD 40 MG TAB PO SCH (20:32)
[2016-11-30 21:38] LABS: HEMATOCRIT 21.4 % (37-47); MEAN CELL VOLUME 112.6 fL (80-100); MEAN CORPUSCULAR HEMOGLOBIN 35.8 pg (25-34); MEAN CORPUSCULAR HGB CONC 31.8 g/dl (32-36); MEAN PLATELET VOLUME 9.4 fL (7.4-10.4); PLATELET COUNT 184 K/uL (130-400); WHITE BLOOD COUNT 7.36 K/uL (4.8-10.8)
[2016-11-30] MEDS ORDERED: ACETAMINOPHEN 325 MG TAB PO STA (21:58)
[2016-11-30 23:05] VITALS: BP 101/52; PULSE 59; TEMP 36.8; O2SAT 98
[2016-12-01] VITALS (12 sets, daily range): BP systolic 118–148; BP diastolic 49–66; PULSE 57–67; TEMP 36.5–37; O2SAT 96–100
[2016-12-01 06:11] LABS: MEAN CELL VOLUME 110.1 fL (80-100); MEAN CORPUSCULAR HEMOGLOBIN 33.9 pg (25-34); MEAN CORPUSCULAR HGB CONC 30.8 g/dl (32-36); PLATELET COUNT 149 K/uL (130-400); RED BLOOD COUNT 2.18 M/uL (4.2-5.4); WHITE BLOOD COUNT 5.54 K/uL (4.8-10.8)
--- NOTE | 2016-12-01 06:35 | Clinical Documentation Query ---
CLINICAL DOCUMENTATION QUERY 71 year old female with hx of chronic anemia and ESRD presents with Afib RVR and worsening anemia. In your clinical opinion is this patient being managed for: ( ) Acute blood loss anemia treated with 1 unit of PRBC's ( ) Not Agree ( ) Other explanation of clinical findings (Please Explain) (x, it is unclear whether this was progressive chronic anemia vs acute blood loss ) Unable to determine (Please Define) ( ) Need to Discuss The medical record reflects the following clinical findings, treatment, and risk factors. Clinical Indicators: Per GI consult baseline Hgb is around 10. On PM of admission day Hgb 6.8, Hct 21.4, Treatment: 1 unit of PRBC's, GI consult, Protonix, Risk Factors: Age, +FOCB, ESRD, Warfarin therapy, Please clarify and document your clinical opinion in the progress notes and discharge summary. Terms such as "probable", "suspected", "likely", "questionable", "possible", or "still to be ruled out" are acceptable. IF IN AGREEMENT, YOU MUST DOCUMENT ABOVE DIAGNOSTIC STATEMENT IN DAILY PROGRESS NOTES AND DISCHARGE SUMMARY. This document is not part of the patient's record. Thank You, Alec Kaye, RN [phone]
[2016-12-01 06:49] LABS: BUN/CREATININE RATIO 4.2 (10-20); CALCIUM 8.8 mg/dl (8.5-10.1); CREATININE 6.3 mg/dl (0.60-1.20); POTASSIUM 3.8 mmol/L (3.5-5.1)
[2016-12-01] MEDS: INSULIN ASPART 100 UNITS/ML 3 ML PEN SC SCH ×4 (07:00→20:50)
[2016-12-01] MEDS: PANTOprazole SOD 40 MG TAB PO SCH ×2 (08:06→19:59)
[2016-12-01] MEDS: LOSARTAN POTASSIUM 50 MG TAB PO SCH (08:06)
[2016-12-01] MEDS: CLONIDINE HCL 0.1 MG TAB PO SCH ×2 (08:06→20:00)
[2016-12-01] MEDS: NEPHROCAPS PO SCH (08:06)
[2016-12-01] MEDS: METOPROLOL TARTRATE 25 MG TAB PO SCH ×2 (08:06→19:59)
[2016-12-01] MEDS: AMLODIPINE BESYLATE 5 MG TAB PO SCH (08:07)
[2016-12-01] MEDS: FUROSEMIDE 40 MG TAB PO SCH (08:07)
[2016-12-01] MEDS: FLUTICASONE/SALMETEROL 250/50 (ADVAIR) 14 PUFF/1 INHALER INH SCH ×2 (08:08→19:59)
[2016-12-01] MEDS: LACTOBACILLUS ACIDOPHILUS (FLORANEX) TAB PO SCH ×3 (08:08→16:44)
[2016-12-01] MEDS: CALCIUM ACETATE 667MG GELCAP PO SCH ×3 (08:08→16:44)
[2016-12-01] MEDS: PrednisoLONE ACET 1% OP SUSP 5 ML BTL OPL SCH (08:08)
[2016-12-01] MEDS: INSULIN GLARGINE SOLOSTAR 100 UNITS/ML 3 ML PEN SC SCH (08:12)
--- NOTE | 2016-12-01 08:53 | Gastroenterology Progress Note ---
Progress Note Date of Service: Dec 01, 2016 Subjective Pt evaluation today including: conversation w/ patient, physical exam, chart review, lab review, review of inpatient medication list Pt said stomach feels upset today but denies any n/v, abd pain. Tolerated CL diet. Had a loose BM this AM, no blood noted, per RN it's dark brown in color, not melanotic looking. Received 1U PRBC last night, Hgb around 7 still. Review of Systems Constitutional: No fever, No chills Respiratory: No cough, No shortness of breath Cardiac: No chest pain, No palpitations Abdomen: + see HPI, + diarrhea, No pain, No nausea, No vomiting Skin: No rash, No itch, No jaundice Medications Current Inpatient Medications Medications (Trade) Dose Ordered Sig/Joan Route Start Time Stop Time Status Last Admin Dose Admin Acetaminophen (Tylenol Tab) 650 mg Q4H PRN PO 11/30/16 14:00 12/30/16 13:59 Ondansetron HCl (Zofran Inj) 4 mg Q6H PRN IV 11/30/16 14:00 12/30/16 13:59 Polyethylene (Miralax Powder Packet) 17 gm DAILY PRN PO 11/30/16 14:45 12/30/16 14:44 Albuterol (Ventolin Hfa Inhaler) 2 puffs Q4 PRN INH 11/30/16 14:30 12/30/16 14:29 Amlodipine Besylate (Norvasc Tab) 10 mg QAM PO 12/01/16 09:00 12/31/16 08:59 12/01/16 08:07 10 MG Calcium Acetate (Phoslo Cap) 1,334 mg TIDM PO 11/30/16 16:45 12/30/16 17:59 12/01/16 08:08 1,334 MG Clonidine HCl (Catapres Tab) 0.1 mg BID PO 11/30/16 21:00 12/30/16 20:59 12/01/16 08:06 0.1 MG Salmeterol Xinafoate/ Fluticasone (Advair Diskus 250/50 Inh) 2 puff BID INH 11/30/16 21:00 12/30/16 20:59 12/01/16 08:08 2 PUFF Furosemide (Lasix Tab) 40 mg DAILY PO 12/01/16 09:00 12/31/16 08:59 12/01/16 08:07 40 MG Insulin Glargine (Lantus Solostar Pen) 22 units QAM SC 12/01/16 09:00 12/31/16 08:59 12/01/16 08:12 22 UNITS Albuterol/ Ipratropium (Duoneb) 3 ml QID PRN INH 11/30/16 14:30 12/30/16 14:29 Lactobacillus Acidophilus (Floranex Tab) 4 tab TIDM PO 11/30/16 16:45 12/30/16 17:59 12/01/16 08:08 4 TAB Losartan Potassium (coZAAR TAB) 100 mg DAILY PO 12/01/16 09:00 12/31/16 08:59 12/01/16 08:06 100 MG Metoprolol Tartrate (Lopressor Tab) 25 mg BID PO 11/30/16 21:00 12/30/16 20:59 12/01/16 08:06 25 MG Prednisolone Acetate (Pred Forte 1% Oph Susp) 1 drops DAILY OPL 12/01/16 09:00 12/31/16 08:59 12/01/16 08:08 1 DROPS Vitamin B Complex/ Vit C/Folic Acid (Nephrocaps) 1 cap DAILY PO 12/01/16 09:00 12/31/16 08:59 12/01/16 08:06 1 CAP Miscellaneous Information (Order Awaiting Action) 1 ea QS N/A 11/30/16 16:00 12/30/16 15:59 Insulin Aspart (novoLOG ASPART) SLIDING SCALE If C... ACHS SC 11/30/16 16:15 12/30/16 16:14 Glucose (Glucose 40% Gel) 15-30 GRAMS 15 GRAMS... UD PRN PO 11/30/16 14:30 12/30/16 14:29 Glucose (Glucose Chew Tab) 4-8 Tablets 4 Tabl... UD PRN PO 11/30/16 14:30 12/30/16 14:29 Dextrose (Dextrose 50% 50ML Syringe) 25-50ML OF 50% DW IV FOR... UD PRN IV 11/30/16 14:30 12/30/16 14:29 Glucagon (Glucagon Inj) 1 mg UD PRN SQ 11/30/16 14:30 12/30/16 14:29 Pantoprazole Sodium (Protonix Tab) 40 mg BID PO 11/30/16 21:00 12/30/16 20:59 12/01/16 08:06 40 MG Objective Vital Signs Date Time Temp Pulse Resp B/P (MAP) Pulse Ox O2 Delivery O2 Flow Rate FiO2 12/01/16 08:00 36.6 62 23 148/61 (90) 99 Nasal Cannula 2.0 12/01/16 04:00 Nasal Cannula 2.0 12/01/16 03:50 36.9 63 18 128/61 99 2.0 12/01/16 02:50 36.7 60 16 123/60 98 2.0 12/01/16 02:20 36.9 59 16 121/56 98 2.0 12/01/16 02:01 36.8 62 18 126/61 2.0 11/30/16 23:59 Nasal Cannula 2.0 11/30/16 23:05 36.8 59 18 101/52 (68) 98 Nasal Cannula 2.0 11/30/16 20:00 Nasal Cannula 2.0 11/30/16 18:42 36.7 67 20 124/68 (86) 96 Nasal Cannula 2.0 11/30/16 16:00 Nasal Cannula 2.0 11/30/16 15:30 36.9 65 20 127/69 (88) 94 Nasal Cannula 2.0 11/30/16 14:55 89 20 142/62 98 11/30/16 14:02 106 22 118/68 98 Nasal Cannula 2.0 11/30/16 13:49 109 11/30/16 13:38 Nasal Cannula 2.0 11/30/16 13:18 108 20 129/79 11/30/16 12:48 102 24 138/95 97 Nasal Cannula 2.0 11/30/16 12:29 110 22 129/74 97 Nasal Cannula 2.0 11/30/16 12:28 98 Nasal Cannula 11/30/16 12:28 98 Nasal Cannula 2.0 11/30/16 11:50 120 11/30/16 11:39 36.8 103 20 148/78 95 Nasal Cannula 2.0 Physical Exam General Appearance: WD/WN, no apparent distress Eyes: normal inspection, PERRL, EOMI Neck: supple, no JVD, trachea midline Respiratory/Chest: normal breath sounds, no respiratory distress, no accessory muscle use Cardiovascular: regular rate, rhythm, no gallop, no murmur Abdomen: normal bowel sounds, non tender, soft Extremities: normal inspection, no pedal edema, no calf tenderness Neurologic/Psych: alert, normal mood/affect, oriented x 3 Skin: normal color, no jaundice, no rash Laboratory Results Last 24 Hours Test 11/30/16 11:04 11/30/16 15:37 11/30/16 20:46 11/30/16 20:52 White Blood Count 8.30 K/uL 7.36 K/uL Red Blood Count 2.02 M/uL 1.90 M/uL Hemoglobin 7.5 g/dL 6.8 g/dL Hematocrit 22.6 % 21.4 % Mean Corpuscular Volume 111.9 fL 112.6 fL Mean Corpuscular Hemoglobin 37.1 pg 35.8 pg Mean Corpuscular Hemoglobin Concent 33.2 g/dl 31.8 g/dl Platelet Count 175 K/uL 184 K/uL Mean Platelet Volume 9.5 fL 9.4 fL Neutrophils (%) (Auto) 81.0 % Lymphocytes (%) (Auto) 11.1 % Monocytes (%) (Auto) 6.1 % Eosinophils (%) (Auto) 1.1 % Basophils (%) (Auto) 0.2 % Neutrophils # (Auto) 6.72 K/uL Lymphocytes # (Auto) 0.92 K/uL Monocytes # (Auto) 0.51 K/uL Eosinophils # (Auto) 0.09 K/uL Basophils # (Auto) 0.02 K/uL RDW Standard Deviation 75.0 fL 74.9 fL RDW Coefficient of Variation 18.2 % 18.3 % Immature Granulocyte % (Auto) 0.5 % Immature Granulocyte # (Auto) 0.04 K/uL Anisocytosis PRESENT Prothrombin Time 15.9 SECONDS Prothromb Time International Ratio 1.5 Activated Partial Thromboplast Time 36.2 SECONDS Partial Thromboplastin Ratio 1.4 Sodium Level 137 mmol/L Potassium Level 3.0 mmol/L Chloride Level 97 mmol/L Carbon Dioxide Level 32 mmol/L Anion Gap 8.0 mmol/L Blood Urea Nitrogen 17 mg/dl Creatinine 3.90 mg/dl Est Creatinine Clear Calc Drug Dose 16.3 ml/min Estimated GFR () 12.8 Estimated GFR (Non- 11.1 BUN/Creatinine Ratio 4.2 Random Glucose 158 mg/dl Calcium Level 8.9 mg/dl Magnesium Level 2.0 mg/dl Total Bilirubin 0.3 mg/dl Direct Bilirubin 0.1 mg/dl Aspartate Amino Transf (AST/SGOT) 18 U/L Alanine Aminotransferase (ALT/SGPT) 22 U/L Alkaline Phosphatase 95 U/L Troponin I < 0.015 ng/ml Total Protein 6.8 gm/dl Albumin 3.2 gm/dl Lipase 103 U/L Bedside Glucose 131 mg/dl 160 mg/dl Test 12/01/16 05:59 12/01/16 06:26 12/01/16 08:26 White Blood Count 5.54 K/uL Red Blood Count 2.18 M/uL Hemoglobin 7.4 g/dL Hematocrit 24.0 % Mean Corpuscular Volume 110.1 fL Mean Corpuscular Hemoglobin 33.9 pg Mean Corpuscular Hemoglobin Concent 30.8 g/dl RDW Standard Deviation 82.3 fL RDW Coefficient of Variation 20.3 % Platelet Count 149 K/uL Mean Platelet Volume 9.0 fL Sodium Level 138 mmol/L Potassium Level 3.8 mmol/L Chloride Level 99 mmol/L Carbon Dioxide Level 33 mmol/L Anion Gap 6.0 mmol/L Blood Urea Nitrogen 26 mg/dl Creatinine 6.30 mg/dl Est Creatinine Clear Calc Drug Dose 9.9 ml/min Estimated GFR () 7.2 Estimated GFR (Non- 6.2 BUN/Creatinine Ratio 4.2 Random Glucose 93 mg/dl Calcium Level 8.8 mg/dl Bedside Glucose 93 mg/dl Assessment and Plan Patient is a 71 year old female who presented to ED after noted to be hypotensive during HD session, also c/o palpitation, SOB. Found to be anemic w Hgb around 7, FOBT + but no jennifer GI bleeding noted. Also denies any appetite/ bowel habit changes, n/v, abd pain. Hx of gastritis and Hyplori infection. Hx of Afib on Coumadin, INR on admission 1.5. Received 1U PRBC last night, Hgb staying around 7. She denies any n/v, abd pain though admits stomach feels upset today. Had loose dark brown BM w/o signs of bleeding, nor melanotic stool. Plans - Monitor H/H and transfuse prn - Defer electrolyte imbalance management to primary team. - Advanced to FL diet - Protonix 40mg BID - F/U Stool Hpylori Ag; if positive treat. Also if diarrhea persist, will check for Cdiff and stool cx. - Will follow and decide if endoscopic eval is needed in the next few days. Tenatively will make her NPO after midnight for possible EGD tomorrow 12/02 if anemia worsen or if having abd pain. I have seen, examined and agree with the plan as outlined by TAYLOR Rojas as above. -exam reveals soft abd
--- NOTE | 2016-12-01 12:59 | Nephrology Consultation ---
Nephrology Consultation Date of Consultation: Dec 01, 2016. Attending Physician: Dr Sarmiento Requesting Physician: Dr Sarmiento Reason for Consultation: ESRD History of Present Illness 71 year old female sent after completing HD treatment yesterday to ER b/c of palpitations w/ a fib and HR 110-140s, dyspnea and hypoxia w/ sats 98% on 2LNC. She was able to complete full treatment yesterday and had 2L fluid removed. Trend to lower hgb was already noted at HD by team and transfusion had been planned tentatively for today. Noted however on arrival here to have hgb 7.5 w / heme + stool. She had one unit pRBC; due for another today since hgb dropped to 6.8 overnight. Pt denies hx of melena or hematochezia. GI is following expectantly; pt currently on liquid diet. Of note she was admitted here about a month ago and coumadin therapy was started at that time. Her INR on presentation was in 1's. Pt did state that on 11/28 and 11/29 she had felt poorly w / nonspecific sx such as poor po intake, more fatigue. Denies F, cough, change in sob. Past Medical/Surgical History -paroxysmal AFib, started on coumadin about 1 month ago -end-stage renal disease on dialysis Tuesdays, , and Saturdays via AVF w/ Dr Tijerina at [facility] -anemia of end-stage renal disease -COPD on chronic oxygen 2-2.5L daily -active tobacco abuse -type 2 diabetes -hyperlipidemia -hypertension -s/p cataract surgery, appendectomy, cholecystectomy, hysterectomy, and AV fistula placement. Family History Diabetes mellitus FATHER MOTHER BROTHER FH: cancer BROTHER FH: heart disease FATHER Hypertension BROTHER Kidney disease BROTHER Social History Smoking Status: Unknown if Ever Smoked Alcohol Use: none Drug Use: none Marital Status: Housing Status: lives with family Occupation Status: retired Allergies Coded Allergies: No Known Allergies (Verified , 10/26/16) Medications Current Inpatient Medications Medications (Trade) Dose Ordered Sig/Joan Route Start Time Stop Time Status Last Admin Dose Admin Acetaminophen (Tylenol Tab) 650 mg Q4H PRN PO 11/30/16 14:00 12/30/16 13:59 Ondansetron HCl (Zofran Inj) 4 mg Q6H PRN IV 11/30/16 14:00 12/30/16 13:59 Polyethylene (Miralax Powder Packet) 17 gm DAILY PRN PO 11/30/16 14:45 12/30/16 14:44 Albuterol (Ventolin Hfa Inhaler) 2 puffs Q4 PRN INH 11/30/16 14:30 12/30/16 14:29 Amlodipine Besylate (Norvasc Tab) 10 mg QAM PO 12/01/16 09:00 12/31/16 08:59 12/01/16 08:07 10 MG Calcium Acetate (Phoslo Cap) 1,334 mg TIDM PO 11/30/16 16:45 12/30/16 17:59 12/01/16 12:01 1,334 MG Clonidine HCl (Catapres Tab) 0.1 mg BID PO 11/30/16 21:00 12/30/16 20:59 12/01/16 08:06 0.1 MG Salmeterol Xinafoate/ Fluticasone (Advair Diskus 250/50 Inh) 2 puff BID INH 11/30/16 21:00 12/30/16 20:59 12/01/16 08:08 2 PUFF Furosemide (Lasix Tab) 40 mg DAILY PO 12/01/16 09:00 12/31/16 08:59 12/01/16 08:07 40 MG Insulin Glargine (Lantus Solostar Pen) 22 units QAM SC 12/01/16 09:00 12/31/16 08:59 12/01/16 08:12 22 UNITS Albuterol/ Ipratropium (Duoneb) 3 ml QID PRN INH 11/30/16 14:30 12/30/16 14:29 Lactobacillus Acidophilus (Floranex Tab) 4 tab TIDM PO 11/30/16 16:45 12/30/16 17:59 12/01/16 12:00 4 TAB Losartan Potassium (coZAAR TAB) 100 mg DAILY PO 12/01/16 09:00 12/31/16 08:59 12/01/16 08:06 100 MG Metoprolol Tartrate (Lopressor Tab) 25 mg BID PO 11/30/16 21:00 12/30/16 20:59 12/01/16 08:06 25 MG Prednisolone Acetate (Pred Forte 1% Oph Susp) 1 drops DAILY OPL 12/01/16 09:00 12/31/16 08:59 12/01/16 08:08 1 DROPS Vitamin B Complex/ Vit C/Folic Acid (Nephrocaps) 1 cap DAILY PO 12/01/16 09:00 12/31/16 08:59 12/01/16 08:06 1 CAP Miscellaneous Information (Order Awaiting Action) 1 ea QS N/A 11/30/16 16:00 12/30/16 15:59 Insulin Aspart (novoLOG ASPART) SLIDING SCALE If C... ACHS SC 11/30/16 16:15 12/30/16 16:14 Glucose (Glucose 40% Gel) 15-30 GRAMS 15 GRAMS... UD PRN PO 11/30/16 14:30 12/30/16 14:29 Glucose (Glucose Chew Tab) 4-8 Tablets 4 Tabl... UD PRN PO 11/30/16 14:30 12/30/16 14:29 Dextrose (Dextrose 50% 50ML Syringe) 25-50ML OF 50% DW IV FOR... UD PRN IV 11/30/16 14:30 12/30/16 14:29 Glucagon (Glucagon Inj) 1 mg UD PRN SQ 11/30/16 14:30 12/30/16 14:29 Pantoprazole Sodium (Protonix Tab) 40 mg BID PO 11/30/16 21:00 12/30/16 20:59 12/01/16 08:06 40 MG Home Meds and Scripts Medications Dose Route/Sig Max Daily Dose Days Date Category Dose Instructions Lactobacillus 1 Tab Tab 1 Tab PO UD 11/30/16 Reported Lopressor (Metoprolol Tartrate) 25 Mg Tab 25 Mg PO BID 11/30/16 Reported Coumadin (Warfarin Sodium) 5 Mg Tab 10 Mg PO DAILY 11/01/16 Rx Floranex (Lactobacillus Acidophilus) 1 Tab Tab 4 Tab PO TIDM 7 11/01/16 Rx Levofloxacin 500 Mg Tab 500 Mg PO Q48H 11/01/[address] [facility] Mucus D Extended Rele 60-600 mg (Pseudoephedrine-Guaifenesin) 1 Tab Tab 1 Tab PO Q12 PRN 10/26/16 Reported Pred Forte 1% Oph (Prednisolone Acetate (Ophth)) 1 % Neena 1 Drops OPL DAILY 10/26/16 Reported Duoneb (Ipratropium-Albuterol) 3 Ml Nebu 1 Treatment INH QID PRN 10/26/16 Reported Apap (Acetaminophen) 325 Mg Tab 650 Mg PO Q6 PRN 10/26/16 Reported Valtrex (Valacyclovir Hcl) 1 Gm Tab 1,000 Mg PO DAILY 10/26/16 Reported Nephrocaps (Vitamin B Complex/Vit C/Folic Acid) Cap 1 Cap PO DAILY 10/26/16 Reported Phoslo 667 Mg (Calcium Acetate) 667 Mg Cap 2 Cap PO TIDM 10/26/16 Reported Cozaar (Losartan Potassium) 100 Mg Tab 100 Mg PO DAILY 10/26/16 Reported Incruse Ellipta (Umeclidinium [place]) 62.5 Mcg/Inh Inh 1 Puff INH DAILY 10/26/16 Reported Lantus (Insulin Glargine) 100 Unit/Ml Inj 26 Units SC QAM 07/13/16 Reported Furosemide 40 Mg Tab 40 Mg PO DAILY 05/01/16 Reported Uaeyavako-Enxatjzjgi-Ojsc 2.5-2.5 % (Lidocaine-Prilocaine) 1 Cre Cre 1 Appln TOP UD PRN 05/01/16 Reported APPLY SMALL AMT TO ACCESS SITE 1-2 HOURS BEFORE DIALYSIS. COVER WITH SARAN WRAP Vitamin D 94580 Unit (Ergocalciferol) 50,000 Unit Cap 50,000 Unit PO MONTHLY 05/01/16 Reported 9th Procrit (Epoetin [place]) 10,000 Units Inj 05/01/16 Reported per dialysis clinic Ventolin Hfa (Albuterol) 200 Puffs/82808 Mcg Aers 2 Puffs INH Q4 PRN 05/01/16 Reported Cyanocobalamin 1,000 Mcg/Ml Inj 1,000 Mcg IM MONTHLY 04/12/16 Reported Oxygen Gas 2.5 Liters NA CONTINOUS 05/15/15 Reported Advair Diskus 250/50 60 Dose (Fluticasone Prop/Salmeterol) 1 Ea Aerp 2 Puff INH BID 05/15/15 Reported Catapres (Clonidine Hcl) 0.1 Mg Tab 0.1 Mg PO BID 05/15/15 Reported Novolog Flexpen (Insulin Aspart) 100 Units/Ml Inj 2-3 Units SQ TIDM 04/01/15 Reported TAKES PER SLIDING SCALE Norvasc (Amlodipine Besylate) 10 Mg Tab 10 Mg PO QAM 09/08/13 Reported Review of Systems Constitutional: + weakness, + fatigue, No fever, No chills Eyes: No worsening of vision ENT: No hearing loss Respiratory: + dyspnea on exertion (stable chronic), No cough, No shortness of breath Cardiac: + see HPI, + palpitations, No chest pain, No orthopnea, No edema Abdomen: No pain, No nausea, No vomiting, No diarrhea, No constipation Musculoskeletal: No joint pain, No muscle pain Female : + problem reported (voids small amount most days; does ) Neuro: + weakness, + balance problems Psych: No depression symptoms, No anxiety Heme: No abnormal bleeding/bruising Endo: + fatigue Skin: No rash, No new/changing skin lesions Physical Exam Date Time Temp Pulse Resp B/P (MAP) Pulse Ox O2 Delivery O2 Flow Rate FiO2 12/01/16 12:00 100 Nasal Cannula 2.0 12/01/16 10:59 36.5 63 18 133/60 (84) 100 2.0 12/01/16 10:37 99 Nasal Cannula 2.0 12/01/16 09:21 99 Nasal Cannula 2.0 12/01/16 08:00 36.6 62 23 148/61 (90) 99 Nasal Cannula 2.0 12/01/16 04:00 Nasal Cannula 2.0 12/01/16 03:50 36.9 63 18 128/61 99 2.0 12/01/16 02:50 36.7 60 16 123/60 98 2.0 12/01/16 02:20 36.9 59 16 121/56 98 2.0 12/01/16 02:01 36.8 62 18 126/61 2.0 11/30/16 23:59 Nasal Cannula 2.0 11/30/16 23:05 36.8 59 18 101/52 (68) 98 Nasal Cannula 2.0 11/30/16 20:00 Nasal Cannula 2.0 11/30/16 18:42 36.7 67 20 124/68 (86) 96 Nasal Cannula 2.0 11/30/16 16:00 Nasal Cannula 2.0 11/30/16 15:30 36.9 65 20 127/69 (88) 94 Nasal Cannula 2.0 11/30/16 14:55 89 20 142/62 98 11/30/16 14:02 106 22 118/68 98 Nasal Cannula 2.0 11/30/16 13:49 109 11/30/16 13:38 Nasal Cannula 2.0 11/30/16 13:18 108 20 129/79 General Appearance: WD/WN, no apparent distress, + pertinent finding (on 02NC 2L) Eyes: EOMI, + pertinent finding (mild periorbital edema) ENT: hearing grossly normal Neck: supple Respiratory/Chest: no respiratory distress, + decreased breath sounds (BL bases L>R), + crackles (R base) Cardiovascular: regular rate, rhythm Abdomen: normal bowel sounds, non tender, soft Extremities: no pedal edema, + pertinent finding (avf + t/b) Neurologic/Psych: alert, normal mood/affect, oriented x 3 Skin: no jaundice, warm/dry, no rash Diagnostics Last 24 Hours Test 11/30/16 15:37 11/30/16 20:46 11/30/16 20:52 12/01/16 05:59 Bedside Glucose 131 mg/dl 160 mg/dl White Blood Count 7.36 K/uL 5.54 K/uL Red Blood Count 1.90 M/uL 2.18 M/uL Hemoglobin 6.8 g/dL 7.4 g/dL Hematocrit 21.4 % 24.0 % Mean Corpuscular Volume 112.6 fL 110.1 fL Mean Corpuscular Hemoglobin 35.8 pg 33.9 pg Mean Corpuscular Hemoglobin Concent 31.8 g/dl 30.8 g/dl RDW Standard Deviation 74.9 fL 82.3 fL RDW Coefficient of Variation 18.3 % 20.3 % Platelet Count 184 K/uL 149 K/uL Mean Platelet Volume 9.4 fL 9.0 fL Sodium Level 138 mmol/L Potassium Level 3.8 mmol/L Chloride Level 99 mmol/L Carbon Dioxide Level 33 mmol/L Anion Gap 6.0 mmol/L Blood Urea Nitrogen 26 mg/dl Creatinine 6.30 mg/dl Est Creatinine Clear Calc Drug Dose 9.9 ml/min Estimated GFR () 7.2 Estimated GFR (Non- 6.2 BUN/Creatinine Ratio 4.2 Random Glucose 93 mg/dl Calcium Level 8.8 mg/dl Test 12/01/16 06:26 12/01/16 08:20 12/01/16 10:59 Bedside Glucose 93 mg/dl 104 mg/dl Diagnostic Radiology: cxr > cardiomegaly, L base atelectasis; no vasc congestion or acute cardiopulm abnormality EKG: monitor strip > a fib Assessment & Plan 71 y/o F a/w AF w/ RVR, dyspnea, and worsening chronic anemia. ESRD -no HD today; plan tentatively HD in am per routine -if respiratory distress develops w/ planned blood transfusion today, pls contact personnel security specialist nephro but I believe she will tolerate further pRBC today -daily bmp while in house pls > K currently ok; hold phos binder until taking po reliably acute on chronic anemia -f/u GI recs -epo w/ HD -no heparin w/ HD -serial hgb HTN and A Fib w/ RVR HR and bp controlled currently; cont to monitor. Appreciate consult; will follow with you.
--- NOTE | 2016-12-01 18:34 | Progress Note ---
Internal Med Progress Note Date of Service: Dec 01, 2016. Provider Documentation: SUBJECTIVE: patient examined at bedside. she does not recall why she was sent from dialysis center to the hospital yesterday. since being in the hospital denies shortness of breath or chest pain or palpitations. she reports she makes minimal urine as she is on dialysis via left upper extremity AV fistula Exam: General-NAD, speaking in full sentences Eyes- EOMI, no jaundice ENT-nontender, no oral or nasal exudates Neck- nontender, no JVD Lungs- no crackles, no wheezing on lung auscultation. no use of accessory muscles Heart- regular rate Abdomen- soft, nontender to palpation Extremities- AV fistuala on left arm with bruit and no swelling and no erythema Neuro- AO x 3 ASSESSMENT & PLAN: 71 year old female who presented to ED after noted to be hypotensive during HD session, and tachycardic on ED presentation. Found to be anemic Hgb around 7, FOBT + with no jennifer GI bleeding Anemia - received 1 unit PRBC from admission on 11/30/2016 -trend H/H - NPO after midnight if needs further GI intervention - F/U Stool Hpylori Ag; if positive treat. if paient has persistent diarrhea, will check for Cdiff and stool cx. -EPO with dialysis days Renal -usual dialysis schedule -last received dialysis from dialysis center on 11/30/2016 -as per nephrology consult, hold phosphate binders for now Respiratory/ COPD -is on home oxygen at baseline -CXR on admission: cardiomegaly but no other evidence of congestion -continue home inhalers PAROXYSMAL ATRIAL FIB: with RVR on admission -on Coumadin, followed by coag clinic; hold for now -continue b-mariana (patient normally takes this after dialysis) -monitor in tele HTN: -losartan/amlodipine/clonidine/metoprolol with hold parameters due to anemia and possible GI bleed DM TYPE II: -continue Lantus + Novolog sliding scale -BSG AC and HS DVT prophylaxis with SCDs Vital Signs: Date Time Temp Pulse Resp B/P (MAP) Pulse Ox O2 Delivery O2 Flow Rate FiO2 12/01/16 16:00 Nasal Cannula 2.0 12/01/16 15:47 36.7 61 18 130/66 (87) 96 Nasal Cannula 2.0 12/01/16 12:00 100 Nasal Cannula 2.0 12/01/16 10:59 36.5 63 18 133/60 (84) 100 2.0 12/01/16 10:37 99 Nasal Cannula 2.0 12/01/16 09:21 99 Nasal Cannula 2.0 12/01/16 08:00 36.6 62 23 148/61 (90) 99 Nasal Cannula 2.0 12/01/16 04:00 Nasal Cannula 2.0 12/01/16 03:50 36.9 63 18 128/61 99 2.0 12/01/16 02:50 36.7 60 16 123/60 98 2.0 12/01/16 02:20 36.9 59 16 121/56 98 2.0 12/01/16 02:01 36.8 62 18 126/61 2.0 11/30/16 23:59 Nasal Cannula 2.0 11/30/16 23:05 36.8 59 18 101/52 (68) 98 Nasal Cannula 2.0 11/30/16 20:00 Nasal Cannula 2.0 11/30/16 18:42 36.7 67 20 124/68 (86) 96 Nasal Cannula 2.0 Lab Results: Results Past 24 Hours Test 11/30/16 20:46 11/30/16 20:52 12/01/16 05:59 12/01/16 06:26 Range/Units Bedside Glucose 160 93 70-90 mg/dl White Blood Count 7.36 5.54 4.8-10.8 K/uL Red Blood Count 1.90 2.18 4.2-5.4 M/uL Hemoglobin 6.8 7.4 12.0-16.0 g/dL Hematocrit 21.4 24.0 37-47 % Mean Corpuscular Volume 112.6 110.1 80-100 fL Mean Corpuscular Hemoglobin 35.8 33.9 25-34 pg Mean Corpuscular Hemoglobin Concent 31.8 30.8 32-36 g/dl RDW Standard Deviation 74.9 82.3 36.4-46.3 fL RDW Coefficient of Variation 18.3 20.3 11.5-14.5 % Platelet Count 184 149 130-400 K/uL Mean Platelet Volume 9.4 9.0 7.4-10.4 fL Sodium Level 138 136-145 mmol/L Potassium Level 3.8 3.5-5.1 mmol/L Chloride Level 99 98-107 mmol/L Carbon Dioxide Level 33 21-32 mmol/L Anion Gap 6.0 3-11 mmol/L Blood Urea Nitrogen 26 7-18 mg/dl Creatinine 6.30 0.60-1.20 mg/dl Est Creatinine Clear Calc Drug Dose 9.9 ml/min Estimated GFR () 7.2 Estimated GFR (Non- 6.2 BUN/Creatinine Ratio 4.2 10-20 Random Glucose 93 70-99 mg/dl Calcium Level 8.8 8.5-10.1 mg/dl Test 12/01/16 08:20 12/01/16 10:59 12/01/16 16:26 Range/Units Bedside Glucose 104 88 70-90 mg/dl
[2016-12-02] VITALS (26 sets, daily range): BP systolic 114–160; BP diastolic 49–78; PULSE 60–122; TEMP 36.6–37.4; O2SAT 94–97
[2016-12-02 06:17] LABS: BASO % 0.4 %; BASO ABS # 0.02 K/uL (0-0.2); EOS % 2.2 %; HEMATOCRIT 23.1 % (37-47); IG% 0.2 %; LYMPH % 13.2 %; LYMPH ABS # 0.71 K/uL (1.2-3.4); MEAN CORPUSCULAR HEMOGLOBIN 35.8 pg (25-34); MEAN CORPUSCULAR HGB CONC 32.9 g/dl (32-36); MEAN PLATELET VOLUME 9.7 fL (7.4-10.4); MONO % 9.6 %; NEUT % 74.4 %; PLATELET COUNT 145 K/uL (130-400); RED BLOOD COUNT 2.12 M/uL (4.2-5.4); WHITE BLOOD COUNT 5.39 K/uL (4.8-10.8)
[2016-12-02] MEDS ORDERED: NURSING VERBAL MED ORDER ONE (06:45)
[2016-12-02 06:51] LABS: ALB/GLOB RATIO 0.9 (0.9-2); BUN/CREATININE RATIO 4.2 (10-20); CALCIUM 8.8 mg/dl (8.5-10.1); CREATININE 8.6 mg/dl (0.60-1.20); POTASSIUM 3.8 mmol/L (3.5-5.1)
[2016-12-02] MEDS: INSULIN ASPART 100 UNITS/ML 3 ML PEN SC SCH ×4 (07:00→20:06)
[2016-12-02] MEDS ORDERED: LIDOCAINE/PRILOCAINE 2.5% EA CRM EXT PRN (07:00)
[2016-12-02 07:25] LABS: ANISOCYTOSIS PRESENT; COMPLETE YES
[2016-12-02] MEDS: LACTOBACILLUS ACIDOPHILUS (FLORANEX) TAB PO SCH ×3 (07:30→16:49)
[2016-12-02] MEDS ORDERED: EPOETIN ALFA INJ 12,000 UNITS in SYRINGE 0 ML IV. SCH (08:00)
[2016-12-02] MEDS ORDERED: EPOETIN ALFA 10,000 UNITS/ML VIAL IV. ONE (08:00)
[2016-12-02] MEDS ORDERED: PROPOFOL IV EMULSION 10 MG/ML 20 ML VIAL IV ONE ×2 (08:38→08:43)
[2016-12-02] MEDS ORDERED: LIDOCAINE HCL 2% 2 ML VIAL (20MG/ML) ONE ×2 (08:38→08:43)
[2016-12-02] MEDS ORDERED: ONDANSETRON INJ 2 MG/ML 2 ML VIAL ONE (08:43)
[2016-12-02] MEDS ORDERED: MIDAZOLAM HCL 1 MG/ML 2ML VIAL ONE (08:43)
--- NOTE | 2016-12-02 12:48 | Gastroenterology Progress Note ---
Progress Note Date of Service: Dec 02, 2016 Subjective Pt evaluation today including: conversation w/ patient, physical exam, chart review, lab review, review of inpatient medication list Pt feels well, denies any abd pain, n/v. Hgb staying around 7. She is due to hemodialysis today. Review of Systems Constitutional: No fever, No chills Respiratory: No cough Abdomen: No pain, No nausea, No vomiting, No GI bleeding Medications Current Inpatient Medications Medications (Trade) Dose Ordered Sig/Joan Route Start Time Stop Time Status Last Admin Dose Admin Acetaminophen (Tylenol Tab) 650 mg Q4H PRN PO 11/30/16 14:00 12/30/16 13:59 Ondansetron HCl (Zofran Inj) 4 mg Q6H PRN IV 11/30/16 14:00 12/30/16 13:59 Polyethylene (Miralax Powder Packet) 17 gm DAILY PRN PO 11/30/16 14:45 12/30/16 14:44 Albuterol (Ventolin Hfa Inhaler) 2 puffs Q4 PRN INH 11/30/16 14:30 12/30/16 14:29 Amlodipine Besylate (Norvasc Tab) 10 mg QAM PO 12/01/16 09:00 12/31/16 08:59 12/01/16 08:07 10 MG Calcium Acetate (Phoslo Cap) 1,334 mg TIDM PO 11/30/16 16:45 12/30/16 17:59 Future Hold 12/01/16 16:44 1,334 MG Clonidine HCl (Catapres Tab) 0.1 mg BID PO 11/30/16 21:00 12/30/16 20:59 12/01/16 20:00 0.1 MG Salmeterol Xinafoate/ Fluticasone (Advair Diskus 250/50 Inh) 2 puff BID INH 11/30/16 21:00 12/30/16 20:59 12/01/16 19:59 2 PUFF Furosemide (Lasix Tab) 40 mg DAILY PO 12/01/16 09:00 12/31/16 08:59 12/01/16 08:07 40 MG Insulin Glargine (Lantus Solostar Pen) 22 units QAM SC 12/01/16 09:00 12/31/16 08:59 12/01/16 08:12 22 UNITS Albuterol/ Ipratropium (Duoneb) 3 ml QID PRN INH 11/30/16 14:30 12/30/16 14:29 Lactobacillus Acidophilus (Floranex Tab) 4 tab TIDM PO 11/30/16 16:45 12/30/16 17:59 12/01/16 16:44 4 TAB Losartan Potassium (coZAAR TAB) 100 mg DAILY PO 12/01/16 09:00 12/31/16 08:59 12/01/16 08:06 100 MG Metoprolol Tartrate (Lopressor Tab) 25 mg BID PO 11/30/16 21:00 12/30/16 20:59 12/01/16 19:59 25 MG Prednisolone Acetate (Pred Forte 1% Oph Susp) 1 drops DAILY OPL 12/01/16 09:00 12/31/16 08:59 12/01/16 08:08 1 DROPS Vitamin B Complex/ Vit C/Folic Acid (Nephrocaps) 1 cap DAILY PO 12/01/16 09:00 12/31/16 08:59 12/01/16 08:06 1 CAP Miscellaneous Information (Order Awaiting Action) 1 ea QS N/A 11/30/16 16:00 12/30/16 15:59 Insulin Aspart (novoLOG ASPART) SLIDING SCALE If C... ACHS SC 11/30/16 16:15 12/30/16 16:14 Glucose (Glucose 40% Gel) 15-30 GRAMS 15 GRAMS... UD PRN PO 11/30/16 14:30 12/30/16 14:29 Glucose (Glucose Chew Tab) 4-8 Tablets 4 Tabl... UD PRN PO 11/30/16 14:30 12/30/16 14:29 Dextrose (Dextrose 50% 50ML Syringe) 25-50ML OF 50% DW IV FOR... UD PRN IV 11/30/16 14:30 12/30/16 14:29 Glucagon (Glucagon Inj) 1 mg UD PRN SQ 11/30/16 14:30 12/30/16 14:29 Pantoprazole Sodium (Protonix Tab) 40 mg BID PO 11/30/16 21:00 12/30/16 20:59 12/01/16 19:59 40 MG Lidocaine/ Prilocaine (Emla 2.5% Crm) 1 ea DAILY PRN EXT 12/02/16 07:00 01/01/17 06:59 Objective Vital Signs Date Time Temp Pulse Resp B/P (MAP) Pulse Ox O2 Delivery O2 Flow Rate FiO2 12/02/16 11:45 61 151/67 12/02/16 11:30 60 152/49 12/02/16 11:15 60 148/67 12/02/16 11:00 60 146/62 12/02/16 10:45 61 148/66 12/02/16 10:43 37.0 63 135/56 (82) 12/02/16 10:30 61 144/67 12/02/16 10:15 60 146/62 12/02/16 10:00 61 141/61 12/02/16 09:47 61 128/64 12/02/16 08:30 36.6 97 14 119/70 (86) 97 Room Air 12/02/16 08:00 97 Nasal Cannula 2.0 12/02/16 07:18 37.0 61 20 119/70 (86) 97 2.0 12/02/16 04:00 Nasal Cannula 2.0 12/02/16 03:38 36.8 60 18 130/57 (81) 96 Nasal Cannula 2.0 12/01/16 23:59 Nasal Cannula 2.0 12/01/16 23:12 37.0 57 20 129/49 (75) 97 Nasal Cannula 2.0 12/01/16 20:00 Nasal Cannula 2.0 12/01/16 19:30 37.0 67 18 118/61 (80) 96 Nasal Cannula 2.0 12/01/16 16:00 Nasal Cannula 2.0 12/01/16 15:47 36.7 61 18 130/66 (87) 96 Nasal Cannula 2.0 Physical Exam General Appearance: WD/WN, no apparent distress Eyes: normal inspection, PERRL, EOMI Neck: supple, no JVD, trachea midline Respiratory/Chest: normal breath sounds, no respiratory distress, no accessory muscle use Cardiovascular: regular rate, rhythm, no gallop, no murmur Abdomen: normal bowel sounds, non tender, soft Extremities: normal inspection, no pedal edema, no calf tenderness Neurologic/Psych: alert, normal mood/affect, oriented x 3 Skin: normal color, no jaundice, no rash Laboratory Results Last 24 Hours Test 12/01/16 16:26 12/01/16 20:30 12/02/16 05:38 12/02/16 06:36 Bedside Glucose 88 mg/dl 134 mg/dl 86 mg/dl White Blood Count 5.39 K/uL Red Blood Count 2.12 M/uL Hemoglobin 7.6 g/dL Hematocrit 23.1 % Mean Corpuscular Volume 109.0 fL Mean Corpuscular Hemoglobin 35.8 pg Mean Corpuscular Hemoglobin Concent 32.9 g/dl Platelet Count 145 K/uL Mean Platelet Volume 9.7 fL Neutrophils (%) (Auto) 74.4 % Lymphocytes (%) (Auto) 13.2 % Monocytes (%) (Auto) 9.6 % Eosinophils (%) (Auto) 2.2 % Basophils (%) (Auto) 0.4 % Neutrophils # (Auto) 4.01 K/uL Lymphocytes # (Auto) 0.71 K/uL Monocytes # (Auto) 0.52 K/uL Eosinophils # (Auto) 0.12 K/uL Basophils # (Auto) 0.02 K/uL RDW Standard Deviation 76.9 fL RDW Coefficient of Variation 19.3 % Immature Granulocyte % (Auto) 0.2 % Immature Granulocyte # (Auto) 0.01 K/uL Anisocytosis PRESENT Sodium Level 136 mmol/L Potassium Level 3.8 mmol/L Chloride Level 98 mmol/L Carbon Dioxide Level 31 mmol/L Anion Gap 7.0 mmol/L Blood Urea Nitrogen 36 mg/dl Creatinine 8.60 mg/dl Est Creatinine Clear Calc Drug Dose 7.3 ml/min Estimated GFR () 4.9 Estimated GFR (Non- 4.3 BUN/Creatinine Ratio 4.2 Random Glucose 89 mg/dl Calcium Level 8.8 mg/dl Iron Level 45 mcg/dl Total Iron Binding Capacity 206 mcg/dl Transferrin 170 mg/dl Transferrin % Saturation 19 % Total Bilirubin 0.5 mg/dl Aspartate Amino Transf (AST/SGOT) 11 U/L Alanine Aminotransferase (ALT/SGPT) 17 U/L Alkaline Phosphatase 82 U/L Total Protein 5.8 gm/dl Albumin 2.8 gm/dl Globulin 3.0 gm/dl Albumin/Globulin Ratio 0.9 Assessment and Plan Patient is a 71 year old female who presented to ED after noted to be hypotensive during HD session, also c/o palpitation, SOB. Found to be anemic w Hgb around 7, FOBT + but no jennifer GI bleeding noted. Also denies any appetite/ bowel habit changes, n/v, abd pain. Hx of gastritis and Hyplori infection. Hx of Afib on Coumadin, INR on admission 1.5. Received 1U PRBC last night, Hgb staying around 7. No more abd pain, n/v. Plans - Monitor H/H and transfuse prn - Defer electrolyte imbalance management to primary team. - Advanced diet as tolerated. - Protonix 40mg BID - F/U Stool Hpylori Ag; if positive treat. Also if diarrhea persist, will check for Cdiff and stool cx. - No plans for endoscopic eval at this time. If she has worsening anemia or jennifer signs of GI bleeding, will consider outpt EGD/Colonoscopy evals though she had previously had these tests in 2016. We're signing off today, pls call if new questions/concerns arise. I have seen, examined and agree with the plan as outlined by TAYLOR Rojas as above. -exam reveals soft abd
--- NOTE | 2016-12-02 13:30 | Progress Note ---
Internal Med Progress Note Date of Service: Dec 02, 2016. Provider Documentation: SUBJECTIVE: patient examined at bedside while receiving hemodialysis. Denies lightheadedness , chest pain, shortness of breath, abdominal pain. Review of telemetry to date has not shown occurrences of tachycardia since she has been monitored on telemetry in the inpatient wards. Exam: General-NAD, speaking in full sentences Eyes- EOMI, no jaundice ENT-nontender, no oral or nasal exudates Neck- nontender, no JVD Lungs- no crackles, no wheezing on lung auscultation. no use of accessory muscles Heart- regular rate, no murmurs appreciated Abdomen- soft, nontender to palpation Extremities- AV fistuala on left arm with bruit and no swelling and no erythema , receiving hemodialysis Neuro- AO x 3 ASSESSMENT & PLAN: 71 year old female who presented to ED after noted to be hypotensive during HD session, and tachycardic on ED presentation. Found to be anemic Hgb around 7, FOBT + with no jennifer GI bleeding Anemia -on admission 11/30/16 hemoglobin was7.5, 6.8 and received 1 unit PRBC with subsequent hemoglobin 7.4 on 12/01/16 -hemoglobin on 12/02/16 7.6 -EPO with dialysis days -GI has opted not to perform EGD Renal -usual dialysis schedule //Tue -as per nephrology consult note on 12/01/16, hold phosphate binders for now -receiving dialysis as inpatient on 12/02/16 Respiratory/ COPD -is on home oxygen at baseline -CXR on admission: cardiomegaly but no other evidence of congestion -continue home inhalers PAROXYSMAL ATRIAL FIB: with RVR on admission -on warfarin, followed by coag clinic; hold for now -continue b-mariana (patient normally takes this after dialysis) -no acute events with telemetry monitoring after admission to inpatient wards -will continue to monitor on telemetry after dialysis today -restart warfarin when Hgb continues to be stable HTN: -losartan/amlodipine/clonidine/metoprolol with hold parameters due to anemia and possible GI bleed DM TYPE II: -continue Lantus + Novolog sliding scale -BSG AC and HS DVT prophylaxis with SCDs Disposition: possible discharge home tomorrow if vitals and CBC continues to be stable after the dialysis session today Vital Signs: Date Time Temp Pulse Resp B/P (MAP) Pulse Ox O2 Delivery O2 Flow Rate FiO2 12/02/16 13:00 69 160/69 12/02/16 12:45 63 147/61 12/02/16 12:30 62 151/63 12/02/16 12:15 62 143/67 12/02/16 12:00 60 144/66 12/02/16 11:45 61 151/67 12/02/16 11:30 60 152/49 12/02/16 11:15 60 148/67 12/02/16 11:00 60 146/62 12/02/16 10:45 61 148/66 12/02/16 10:43 37.0 63 135/56 (82) 12/02/16 10:30 61 144/67 12/02/16 10:15 60 146/62 12/02/16 10:00 61 141/61 12/02/16 09:47 61 128/64 12/02/16 08:30 36.6 97 14 119/70 (86) 97 Room Air 12/02/16 08:00 97 Nasal Cannula 2.0 12/02/16 07:18 37.0 61 20 119/70 (86) 97 2.0 12/02/16 04:00 Nasal Cannula 2.0 12/02/16 03:38 36.8 60 18 130/57 (81) 96 Nasal Cannula 2.0 12/01/16 23:59 Nasal Cannula 2.0 12/01/16 23:12 37.0 57 20 129/49 (75) 97 Nasal Cannula 2.0 12/01/16 20:00 Nasal Cannula 2.0 12/01/16 19:30 37.0 67 18 118/61 (80) 96 Nasal Cannula 2.0 12/01/16 16:00 Nasal Cannula 2.0 12/01/16 15:47 36.7 61 18 130/66 (87) 96 Nasal Cannula 2.0 Lab Results: Results Past 24 Hours Test 12/01/16 16:26 12/01/16 20:30 12/02/16 05:38 12/02/16 06:36 Range/Units Bedside Glucose 88 134 86 70-90 mg/dl White Blood Count 5.39 4.8-10.8 K/uL Red Blood Count 2.12 4.2-5.4 M/uL Hemoglobin 7.6 12.0-16.0 g/dL Hematocrit 23.1 37-47 % Mean Corpuscular Volume 109.0 80-100 fL Mean Corpuscular Hemoglobin 35.8 25-34 pg Mean Corpuscular Hemoglobin Concent 32.9 32-36 g/dl Platelet Count 145 130-400 K/uL Mean Platelet Volume 9.7 7.4-10.4 fL Neutrophils (%) (Auto) 74.4 % Lymphocytes (%) (Auto) 13.2 % Monocytes (%) (Auto) 9.6 % Eosinophils (%) (Auto) 2.2 % Basophils (%) (Auto) 0.4 % Neutrophils # (Auto) 4.01 1.4-6.5 K/uL Lymphocytes # (Auto) 0.71 1.2-3.4 K/uL Monocytes # (Auto) 0.52 0.11-0.59 K/uL Eosinophils # (Auto) 0.12 0-0.5 K/uL Basophils # (Auto) 0.02 0-0.2 K/uL RDW Standard Deviation 76.9 36.4-46.3 fL RDW Coefficient of Variation 19.3 11.5-14.5 % Immature Granulocyte % (Auto) 0.2 % Immature Granulocyte # (Auto) 0.01 0.00-0.02 K/uL Anisocytosis PRESENT Sodium Level 136 136-145 mmol/L Potassium Level 3.8 3.5-5.1 mmol/L Chloride Level 98 98-107 mmol/L Carbon Dioxide Level 31 21-32 mmol/L Anion Gap 7.0 3-11 mmol/L Blood Urea Nitrogen 36 7-18 mg/dl Creatinine 8.60 0.60-1.20 mg/dl Est Creatinine Clear Calc Drug Dose 7.3 ml/min Estimated GFR () 4.9 Estimated GFR (Non- 4.3 BUN/Creatinine Ratio 4.2 10-20 Random Glucose 89 70-99 mg/dl Calcium Level 8.8 8.5-10.1 mg/dl Iron Level 45 35-150 mcg/dl Total Iron Binding Capacity 206 250-450 mcg/dl Transferrin 170 200-360 mg/dl Transferrin % Saturation 19 15-50 % Total Bilirubin 0.5 0.2-1 mg/dl Aspartate Amino Transf (AST/SGOT) 11 15-37 U/L Alanine Aminotransferase (ALT/SGPT) 17 12-78 U/L Alkaline Phosphatase 82 45-117 U/L Total Protein 5.8 6.4-8.2 gm/dl Albumin 2.8 3.4-5.0 gm/dl Globulin 3.0 2.5-4.0 gm/dl Albumin/Globulin Ratio 0.9 0.9-2
[2016-12-02] MEDS: FLUTICASONE/SALMETEROL 250/50 (ADVAIR) 14 PUFF/1 INHALER INH SCH ×2 (14:07→20:03)
[2016-12-02] MEDS: PrednisoLONE ACET 1% OP SUSP 5 ML BTL OPL SCH (14:07)
[2016-12-02] MEDS: LOSARTAN POTASSIUM 50 MG TAB PO SCH (14:07)
[2016-12-02] MEDS: PANTOprazole SOD 40 MG TAB PO SCH ×2 (14:07→20:03)
[2016-12-02] MEDS: NEPHROCAPS PO SCH (14:08)
[2016-12-02] MEDS: FUROSEMIDE 40 MG TAB PO SCH (14:08)
[2016-12-02] MEDS: METOPROLOL TARTRATE 25 MG TAB PO SCH ×2 (14:08→20:02)
[2016-12-02] MEDS: CLONIDINE HCL 0.1 MG TAB PO SCH ×2 (14:09→20:02)
[2016-12-02] MEDS: AMLODIPINE BESYLATE 5 MG TAB PO SCH (14:09)
[2016-12-02] MEDS: INSULIN GLARGINE SOLOSTAR 100 UNITS/ML 3 ML PEN SC SCH (14:11)
--- NOTE | 2016-12-02 15:03 | Nephrology Progress Note ---
Nephrology Progress Note Date of Service: Dec 02, 2016. Subjective 71 yo female with esrd, afib-spontaneously converted, anemia. pt doing better. transfused one unit of prbcs. had dialysis today. tolerated it well. 2 liters uf. Objective Date Time Temp Pulse Resp B/P (MAP) Pulse Ox O2 Delivery O2 Flow Rate FiO2 12/02/16 14:12 36.8 71 18 151/57 (88) 94 2.0 12/02/16 14:00 Nasal Cannula 2.0 12/02/16 13:20 36.6 66 148/64 (92) 12/02/16 13:15 64 155/64 12/02/16 13:00 69 160/69 12/02/16 12:45 63 147/61 12/02/16 12:30 62 151/63 12/02/16 12:15 62 143/67 12/02/16 12:00 60 144/66 12/02/16 11:45 61 151/67 12/02/16 11:30 60 152/49 12/02/16 11:15 60 148/67 12/02/16 11:00 60 146/62 12/02/16 10:45 61 148/66 12/02/16 10:43 37.0 63 135/56 (82) 12/02/16 10:30 61 144/67 12/02/16 10:15 60 146/62 12/02/16 10:00 61 141/61 12/02/16 09:47 61 128/64 12/02/16 08:30 36.6 97 14 119/70 (86) 97 Room Air 12/02/16 08:00 97 Nasal Cannula 2.0 12/02/16 07:18 37.0 61 20 119/70 (86) 97 2.0 12/02/16 04:00 Nasal Cannula 2.0 12/02/16 03:38 36.8 60 18 130/57 (81) 96 Nasal Cannula 2.0 12/01/16 23:59 Nasal Cannula 2.0 12/01/16 23:12 37.0 57 20 129/49 (75) 97 Nasal Cannula 2.0 12/01/16 20:00 Nasal Cannula 2.0 12/01/16 19:30 37.0 67 18 118/61 (80) 96 Nasal Cannula 2.0 12/01/16 16:00 Nasal Cannula 2.0 12/01/16 15:47 36.7 61 18 130/66 (87) 96 Nasal Cannula 2.0 Physical Exam: General-aaox3 Eyes-no scleral icterus ENT-mmm Neck-supple Lungs-decreased at bases Heart-rrr Abdomen-bs+ s/nt/nd Extremities-no c/c/e Neuro-nonfocal Current Inpatient Medications Medications (Trade) Dose Ordered Sig/Joan Route Start Time Stop Time Status Last Admin Dose Admin Acetaminophen (Tylenol Tab) 650 mg Q4H PRN PO 11/30/16 14:00 12/30/16 13:59 Ondansetron HCl (Zofran Inj) 4 mg Q6H PRN IV 11/30/16 14:00 12/30/16 13:59 Polyethylene (Miralax Powder Packet) 17 gm DAILY PRN PO 11/30/16 14:45 12/30/16 14:44 Albuterol (Ventolin Hfa Inhaler) 2 puffs Q4 PRN INH 11/30/16 14:30 12/30/16 14:29 Amlodipine Besylate (Norvasc Tab) 10 mg QAM PO 12/01/16 09:00 12/31/16 08:59 12/02/16 14:09 10 MG Calcium Acetate (Phoslo Cap) 1,334 mg TIDM PO 11/30/16 16:45 12/30/16 17:59 Future Hold 12/01/16 16:44 1,334 MG Clonidine HCl (Catapres Tab) 0.1 mg BID PO 11/30/16 21:00 12/30/16 20:59 12/02/16 14:09 0.1 MG Salmeterol Xinafoate/ Fluticasone (Advair Diskus 250/50 Inh) 2 puff BID INH 11/30/16 21:00 12/30/16 20:59 12/02/16 14:07 2 PUFF Furosemide (Lasix Tab) 40 mg DAILY PO 12/01/16 09:00 12/31/16 08:59 12/02/16 14:08 40 MG Insulin Glargine (Lantus Solostar Pen) 22 units QAM SC 12/01/16 09:00 12/31/16 08:59 12/02/16 14:11 22 UNITS Albuterol/ Ipratropium (Duoneb) 3 ml QID PRN INH 11/30/16 14:30 12/30/16 14:29 Lactobacillus Acidophilus (Floranex Tab) 4 tab TIDM PO 11/30/16 16:45 12/30/16 17:59 12/02/16 14:09 4 TAB Losartan Potassium (coZAAR TAB) 100 mg DAILY PO 12/01/16 09:00 12/31/16 08:59 12/02/16 14:07 100 MG Metoprolol Tartrate (Lopressor Tab) 25 mg BID PO 11/30/16 21:00 12/30/16 20:59 12/02/16 14:08 25 MG Prednisolone Acetate (Pred Forte 1% Oph Susp) 1 drops DAILY OPL 12/01/16 09:00 12/31/16 08:59 12/02/16 14:07 1 DROPS Vitamin B Complex/ Vit C/Folic Acid (Nephrocaps) 1 cap DAILY PO 12/01/16 09:00 12/31/16 08:59 12/02/16 14:08 1 CAP Miscellaneous Information (Order Awaiting Action) 1 ea QS N/A 11/30/16 16:00 12/30/16 15:59 Insulin Aspart (novoLOG ASPART) SLIDING SCALE If C... ACHS SC 11/30/16 16:15 12/30/16 16:14 Glucose (Glucose 40% Gel) 15-30 GRAMS 15 GRAMS... UD PRN PO 11/30/16 14:30 12/30/16 14:29 Glucose (Glucose Chew Tab) 4-8 Tablets 4 Tabl... UD PRN PO 11/30/16 14:30 12/30/16 14:29 Dextrose (Dextrose 50% 50ML Syringe) 25-50ML OF 50% DW IV FOR... UD PRN IV 11/30/16 14:30 12/30/16 14:29 Glucagon (Glucagon Inj) 1 mg UD PRN SQ 11/30/16 14:30 12/30/16 14:29 Pantoprazole Sodium (Protonix Tab) 40 mg BID PO 11/30/16 21:00 12/30/16 20:59 12/02/16 14:07 40 MG Lidocaine/ Prilocaine (Emla 2.5% Crm) 1 ea DAILY PRN EXT 12/02/16 07:00 01/01/17 06:59 Last 24 Hours Test 12/01/16 16:26 12/01/16 20:30 12/02/16 05:38 12/02/16 06:36 Bedside Glucose 88 mg/dl 134 mg/dl 86 mg/dl White Blood Count 5.39 K/uL Red Blood Count 2.12 M/uL Hemoglobin 7.6 g/dL Hematocrit 23.1 % Mean Corpuscular Volume 109.0 fL Mean Corpuscular Hemoglobin 35.8 pg Mean Corpuscular Hemoglobin Concent 32.9 g/dl Platelet Count 145 K/uL Mean Platelet Volume 9.7 fL Neutrophils (%) (Auto) 74.4 % Lymphocytes (%) (Auto) 13.2 % Monocytes (%) (Auto) 9.6 % Eosinophils (%) (Auto) 2.2 % Basophils (%) (Auto) 0.4 % Neutrophils # (Auto) 4.01 K/uL Lymphocytes # (Auto) 0.71 K/uL Monocytes # (Auto) 0.52 K/uL Eosinophils # (Auto) 0.12 K/uL Basophils # (Auto) 0.02 K/uL RDW Standard Deviation 76.9 fL RDW Coefficient of Variation 19.3 % Immature Granulocyte % (Auto) 0.2 % Immature Granulocyte # (Auto) 0.01 K/uL Anisocytosis PRESENT Sodium Level 136 mmol/L Potassium Level 3.8 mmol/L Chloride Level 98 mmol/L Carbon Dioxide Level 31 mmol/L Anion Gap 7.0 mmol/L Blood Urea Nitrogen 36 mg/dl Creatinine 8.60 mg/dl Est Creatinine Clear Calc Drug Dose 7.3 ml/min Estimated GFR () 4.9 Estimated GFR (Non- 4.3 BUN/Creatinine Ratio 4.2 Random Glucose 89 mg/dl Calcium Level 8.8 mg/dl Iron Level 45 mcg/dl Total Iron Binding Capacity 206 mcg/dl Transferrin 170 mg/dl Transferrin % Saturation 19 % Total Bilirubin 0.5 mg/dl Aspartate Amino Transf (AST/SGOT) 11 U/L Alanine Aminotransferase (ALT/SGPT) 17 U/L Alkaline Phosphatase 82 U/L Total Protein 5.8 gm/dl Albumin 2.8 gm/dl Globulin 3.0 gm/dl Albumin/Globulin Ratio 0.9 Assessment & Plan ESRD-pt had dialysis today. volume status is good. k is good. continue t-h-s dialysis. Anemia of renal failure-given one unit of blood. continue procrit with dialysis. coumadin temporarily on hold.
[2016-12-03 03:03] VITALS: BP 109/48; PULSE 65; TEMP 37.1; O2SAT 95
[2016-12-03 05:45] LABS: BASO % 0.5 %; BASO ABS # 0.02 K/uL (0-0.2); EOS % 1.8 %; HEMATOCRIT 23.9 % (37-47); IG% 0.7 %; LYMPH % 16.1 %; LYMPH ABS # 0.71 K/uL (1.2-3.4); MEAN CELL VOLUME 109.1 fL (80-100); MEAN CORPUSCULAR HEMOGLOBIN 36.1 pg (25-34); MEAN CORPUSCULAR HGB CONC 33.1 g/dl (32-36); MEAN PLATELET VOLUME 9.4 fL (7.4-10.4); MONO % 14.8 %; NEUT % 66.1 %; PLATELET COUNT 126 K/uL (130-400); RED BLOOD COUNT 2.19 M/uL (4.2-5.4)
[2016-12-03 06:24] LABS: COMPLETE YES; LARGE PLATELETS 1+
[2016-12-03 07:06] VITALS: BP 107/56; PULSE 63; TEMP 36.7; O2SAT 97
[2016-12-03] MEDS: PrednisoLONE ACET 1% OP SUSP 5 ML BTL OPL SCH (07:52)
[2016-12-03] MEDS: INSULIN ASPART 100 UNITS/ML 3 ML PEN SC SCH ×3 (07:52→16:54)
[2016-12-03] MEDS: FLUTICASONE/SALMETEROL 250/50 (ADVAIR) 14 PUFF/1 INHALER INH SCH (07:52)
[2016-12-03] MEDS: AMLODIPINE BESYLATE 5 MG TAB PO SCH (07:53)
[2016-12-03] MEDS: PANTOprazole SOD 40 MG TAB PO SCH (07:53)
[2016-12-03] MEDS: LOSARTAN POTASSIUM 50 MG TAB PO SCH (07:53)
[2016-12-03] MEDS: NEPHROCAPS PO SCH (07:54)
[2016-12-03] MEDS: METOPROLOL TARTRATE 25 MG TAB PO SCH (07:54)
[2016-12-03] MEDS: CLONIDINE HCL 0.1 MG TAB PO SCH (07:54)
[2016-12-03] MEDS: LACTOBACILLUS ACIDOPHILUS (FLORANEX) TAB PO SCH ×3 (07:54→16:56)
[2016-12-03] MEDS: FUROSEMIDE 40 MG TAB PO SCH (07:55)
[2016-12-03] MEDS: INSULIN GLARGINE SOLOSTAR 100 UNITS/ML 3 ML PEN SC SCH (08:00)
[2016-12-03 10:50] VITALS: BP 119/52; PULSE 59; TEMP 37; O2SAT 99
--- NOTE | 2016-12-03 13:28 | Progress Note ---
Internal Med Progress Note Date of Service: Dec 03, 2016. Provider Documentation: SUBJECTIVE: After patient's dialysis session on 12/02/2016, patient had recorded heart rate at 120 bpm with subsequent nursing vitals checks of the heart between 60s to 70s bpm. Review of telemetry monitoring did not find runs of tachycardia. When examined today, patient denies feeling symptoms of chest pain, palpitations, shortness of breath, or lightheadedness after yesterday's dialysis session and feels about the same today. Patient has no acute complaints Exam: General-NAD, speaking in full sentences, breathing on nasal cannula, ambulates with nasal cannula Eyes- EOMI, no jaundice ENT-nontender, no oral or nasal exudates Neck- nontender, no JVD Lungs- clear to auscultation, no crackles, no wheezing on lung auscultation, no use of accessory muscles Heart- regular rate, no murmurs appreciated Abdomen- soft, nontender to palpation Extremities- AV fistuala on left arm with bruit and no swelling and no erythema Neuro- AO x 3 ASSESSMENT & PLAN: 71 year old female who presented to ED after noted to be hypotensive during HD session, and tachycardic on ED presentation. Found to be anemic Hgb around 7, FOBT + with no jennifer GI bleeding and received 1 blood transfusion with stabilized hemoglobin on subsequent tests and so EGD was not indicated at this time as per inpatient GI consult. Patient again documented to have tachycardia after inpatient dialysis session with resolution of tachycardia without interventions and patient has been asymptomatic otherwise during hospital stay. Anemia -on admission 11/30/16 hemoglobin was7.5, 6.8 and received 1 unit PRBC with subsequent hemoglobin 7.4 on 12/01/16 -hemoglobin on 12/02/16 7.6 -EPO with dialysis days -GI has opted not to perform EGD Renal -usual dialysis schedule //Tue -as per nephrology consult note on 12/01/16, hold phosphate binders for now -receiving dialysis as inpatient on 12/02/16 Respiratory/ COPD -has home oxygen prior to admission -CXR on admission: cardiomegaly but no other evidence of congestion -continue home inhalers, home oxygen PAROXYSMAL ATRIAL FIB: with RVR on admission -on warfarin, followed by coag clinic; can restart her home warfarin dose and follow up with anticoagulation clinic as outpatient -continue b-mariana (patient normally takes this after dialysis) HTN: -continue losartan/amlodipine/clonidine/metoprolol DM TYPE II: -continue insulin Has been on DVT prophylaxis with SCDs while in hospital as warfarin had been held due to anemia Disposition: discharge home with appointment to Internal [facility] with Dr. Armando and follow up with her anticoagulation clinic after restarting coumadin at home Vital Signs: Date Time Temp Pulse Resp B/P (MAP) Pulse Ox O2 Delivery O2 Flow Rate FiO2 12/03/16 12:10 Nasal Cannula 2.0 12/03/16 10:50 37.0 59 16 119/52 (74) 99 Nasal Cannula 2.0 12/03/16 08:00 Nasal Cannula 2.0 12/03/16 07:06 36.7 63 18 107/56 (73) 97 Nasal Cannula 2.0 12/03/16 04:00 Nasal Cannula 2.0 12/03/16 03:03 37.1 65 16 109/48 (68) 95 Nasal Cannula 2.0 12/02/16 23:59 Nasal Cannula 2.0 12/02/16 23:48 36.9 74 18 139/58 (85) 95 Nasal Cannula 2.0 12/02/16 20:00 Nasal Cannula 2.0 12/02/16 19:22 37.4 122 20 132/78 (96) 97 Nasal Cannula 2.5 12/02/16 17:39 96 Nasal Cannula 2.0 12/02/16 16:05 37.2 69 16 141/73 (95) 96 Nasal Cannula 2.0 12/02/16 14:12 36.8 71 18 151/57 (88) 94 2.0 12/02/16 14:00 Nasal Cannula 2.0 Lab Results: Results Past 24 Hours Test 12/02/16 14:07 12/02/16 16:08 12/02/16 19:58 12/03/16 05:32 Range/Units Bedside Glucose 89 213 170 70-90 mg/dl White Blood Count 4.40 4.8-10.8 K/uL Red Blood Count 2.19 4.2-5.4 M/uL Hemoglobin 7.9 12.0-16.0 g/dL Hematocrit 23.9 37-47 % Mean Corpuscular Volume 109.1 80-100 fL Mean Corpuscular Hemoglobin 36.1 25-34 pg Mean Corpuscular Hemoglobin Concent 33.1 32-36 g/dl Platelet Count 126 130-400 K/uL Mean Platelet Volume 9.4 7.4-10.4 fL Neutrophils (%) (Auto) 66.1 % Lymphocytes (%) (Auto) 16.1 % Monocytes (%) (Auto) 14.8 % Eosinophils (%) (Auto) 1.8 % Basophils (%) (Auto) 0.5 % Neutrophils # (Auto) 2.91 1.4-6.5 K/uL Lymphocytes # (Auto) 0.71 1.2-3.4 K/uL Monocytes # (Auto) 0.65 0.11-0.59 K/uL Eosinophils # (Auto) 0.08 0-0.5 K/uL Basophils # (Auto) 0.02 0-0.2 K/uL RDW Standard Deviation 74.3 36.4-46.3 fL RDW Coefficient of Variation 18.7 11.5-14.5 % Immature Granulocyte % (Auto) 0.7 % Immature Granulocyte # (Auto) 0.03 0.00-0.02 K/uL Large Platelets 1+ Macrocytosis PRESENT Test 12/03/16 06:44 12/03/16 11:28 Range/Units Bedside Glucose 114 164 70-90 mg/dl
[2016-12-03 14:35] VITALS: BP 119/52; PULSE 59; TEMP 37; O2SAT 99
--- NOTE | 2016-12-03 14:40 | Discharge Instructions ---
Discharge Instructions Date of Service Dec 03, 2016. Admission Reason for Admission: Anemia, Rapid Atrial Fibrillation Discharge Discharge Diagnosis / Problem: ESRD on dialysis, tachycardia after dialysis, anemia Discharge Goals Goal(s): Improve function Activity Recommendations Activity Limitations: resume your previous activity Lifting Limitations: none Exercise/Sports Limitations: none Shower/Bathe: no limitations . Instructions / Follow-Up Instructions / Follow-Up Disposition: discharge home with appointment to Internal Medicine [facility] with Dr. Armando, continue with dialysis schedule on , and follow up with her anticoagulation clinic after restarting coumadin at home Current Hospital Diet Patient's current hospital diet: Renal Diet, Diabetes Type 2 Diet Discharge Diet Recommended Diet: Renal Diet Procedures Procedures Performed: received dialysis as inpatient on 12/02/2016 Pending Studies Studies pending at discharge: no Laboratory Results 12/03/16 05:32 Red Blood Count 2.19, Mean Corpuscular Volume 109.1, Mean Corpuscular Hemoglobin 36.1, Mean Corpuscular Hemoglobin Concent 33.1, Mean Platelet Volume 9.4, Neutrophils (%) (Auto) 66.1, Lymphocytes (%) (Auto) 16.1, Monocytes (%) ( Auto) 14.8, Eosinophils (%) (Auto) 1.8, Basophils (%) (Auto) 0.5, Neutrophils # (Auto) 2.91, Lymphocytes # (Auto) 0.71, Monocytes # (Auto) 0.65, Eosinophils # ( Auto) 0.08, Basophils # (Auto) 0.02 12/02/16 05:38 Test 11/30/16 11:04 12/01/16 08:20 12/02/16 05:38 12/03/16 05:32 Prothrombin Time 15.9 SECONDS (9.0-12.0) Prothromb Time International Ratio 1.5 (0.9-1.1) Activated Partial Thromboplast Time 36.2 SECONDS (21.0-31.0) Partial Thromboplastin Ratio 1.4 Magnesium Level 2.0 mg/dl (1.8-2.4) Direct Bilirubin 0.1 mg/dl (0-0.2) Troponin I < 0.015 ng/ml (0-0.045) Lipase 103 U/L (73-393) Stool Helicobacter pylori Antigen NOT DETECTED (NOT DETECTED) Anisocytosis PRESENT Anion Gap 7.0 mmol/L (3-11) Est Creatinine Clear Calc Drug Dose 7.3 ml/min Estimated GFR () 4.9 Estimated GFR (Non- 4.3 BUN/Creatinine Ratio 4.2 (10-20) Calcium Level 8.8 mg/dl (8.5-10.1) Iron Level 45 mcg/dl (35-150) Total Iron Binding Capacity 206 mcg/dl (250-450) Transferrin 170 mg/dl (200-360) Transferrin % Saturation 19 % (15-50) Total Bilirubin 0.5 mg/dl (0.2-1) Aspartate Amino Transf (AST/SGOT) 11 U/L (15-37) Alanine Aminotransferase (ALT/SGPT) 17 U/L (12-78) Alkaline Phosphatase 82 U/L (45-117) Total Protein 5.8 gm/dl (6.4-8.2) Albumin 2.8 gm/dl (3.4-5.0) Globulin 3.0 gm/dl (2.5-4.0) Albumin/Globulin Ratio 0.9 (0.9-2) White Blood Count 4.40 K/uL (4.8-10.8) Red Blood Count 2.19 M/uL (4.2-5.4) Hemoglobin 7.9 g/dL (12.0-16.0) Hematocrit 23.9 % (37-47) Mean Corpuscular Volume 109.1 fL (80-100) Mean Corpuscular Hemoglobin 36.1 pg (25-34) Mean Corpuscular Hemoglobin Concent 33.1 g/dl (32-36) Platelet Count 126 K/uL (130-400) Mean Platelet Volume 9.4 fL (7.4-10.4) Neutrophils (%) (Auto) 66.1 % Lymphocytes (%) (Auto) 16.1 % Monocytes (%) (Auto) 14.8 % Eosinophils (%) (Auto) 1.8 % Basophils (%) (Auto) 0.5 % Neutrophils # (Auto) 2.91 K/uL (1.4-6.5) Lymphocytes # (Auto) 0.71 K/uL (1.2-3.4) Monocytes # (Auto) 0.65 K/uL (0.11-0.59) Eosinophils # (Auto) 0.08 K/uL (0-0.5) Basophils # (Auto) 0.02 K/uL (0-0.2) RDW Standard Deviation 74.3 fL (36.4-46.3) RDW Coefficient of Variation 18.7 % (11.5-14.5) Immature Granulocyte % (Auto) 0.7 % Immature Granulocyte # (Auto) 0.03 K/uL (0.00-0.02) Large Platelets 1+ Macrocytosis PRESENT Test 12/03/16 11:28 Bedside Glucose 164 mg/dl (70-90) Medical Emergencies . Who to Call and When: Medical Emergencies: If at any time you feel your situation is an emergency, please call 911 immediately. . Non-Emergent Contact Non-Emergency issues call your: Primary Care Provider Call Non-Emergent contact if: you have any medication questions . . "Provider Documentation" section prepared by Bubba Sarmiento. . VTE Core Measure Inpt VTE Proph given/why not?: SCD's
--- NOTE | 2016-12-03 14:42 | Discharge Summary ---
Discharge Summary Date of Service Dec 03, 2016. Discharge Summary Admission Date: Nov 30, 2016 at 13:58 Discharge Date: Dec 03, 2016 Discharge Disposition: Home Principal Diagnosis: ESRD on dialysis, tachycardia after dialysis, anemia Medication Reconciliation Continued Medications: Acetaminophen (Apap) 325 Mg Tab 650 MG PO Q6 PRN for Pain Albuterol Hfa (Ventolin Hfa) 200 Puffs/80862 Mcg Aers 2 PUFFS INH Q4 PRN for SOB/Wheezing Amlodipine (Norvasc) 10 Mg Tab 10 MG PO QAM Calcium Acetate (Phoslo 667 Mg) 667 Mg Cap 2 CAP PO TIDM, CAP Clonidine Hcl (Catapres) 0.1 Mg Tab 0.1 MG PO BID, TAB Cyanocobalamin (Cyanocobalamin) 1,000 Mcg/Ml Inj 1000 MCG IM MONTHLY Epoetin Hakan (Procrit) 10,000 Units Inj per dialysis clinic Ergocalciferol (Vitamin D 65994 Unit) 50,000 Unit Cap 81784 UNIT PO MONTHLY, CAP 9th Fluticasone Prop/Salmeterol (Advair Diskus 250/50 60 Dose) 1 Ea Aerp 2 PUFF INH BID Furosemide (Furosemide) 40 Mg Tab 40 MG PO DAILY Home O2 Therapy (Oxygen) Gas 2.5 LITERS NA CONTINOUS Insulin Aspart (Novolog Flexpen) 100 Units/Ml Inj 2-3 UNITS SQ TIDM TAKES PER SLIDING SCALE Insulin Glargine (Lantus) 100 Unit/Ml Inj 26 UNITS SC QAM, VIAL Ipratropium-Albuterol (Duoneb) 3 Ml Nebu 1 TREATMENT INH QID PRN for SOB/Wheezing, INHA Lactobacillus (Lactobacillus) 1 Tab Tab 1 TAB PO UD Lactobacillus Acidophilus (Floranex) 1 Tab Tab 4 TAB PO TIDM for 7 Days, #84 TAB Lidocaine-Prilocaine (Vccvksuvh-Tgzghbwclx-Aaff 2.5-2.5 %) 1 Cre Cre 1 APPLN TOP UD PRN for PRIOR TO DIALYSIS APPLY SMALL AMT TO ACCESS SITE 1-2 HOURS BEFORE DIALYSIS. COVER WITH SARAN WRAP Losartan Potassium (Cozaar) 100 Mg Tab 100 MG PO DAILY, TAB Metoprolol Tartrate (Lopressor) (Lopressor) 25 Mg Tab 25 MG PO BID Prednisolone Acetate (Ophth) (Pred Forte 1% Oph) 1 % Neena 1 DROPS OPL DAILY, #5 ML Pseudoephedrine-Guaifenesin (Cvs Mucus D Extended Rele 60-600 mg) 1 Tab Tab 1 TAB PO Q12 PRN for Nasal Congestion Umeclidinium [place] (Incruse Ellipta) 62.5 Mcg/Inh Inh 1 PUFF INH DAILY, #30 Valacyclovir Hcl (Valtrex) 1 Gm Tab 1000 MG PO DAILY, #21 TAB Vitamin B Cmplx/Vitc/Folic Ac (Nephrocaps) Cap 1 CAP PO DAILY, CAP Warfarin Sodium (Coumadin) 5 Mg Tab 10 MG PO DAILY, #60 TAB 1 Refill Discontinued Medications: Levofloxacin (Levofloxacin) 500 Mg Tab 500 MG PO Q48H, #2 TAB Admission Information HPI (per Admitting provider): Patient is a 71 yo female who presented to the ER for complaints of SOB, rapid heart rate, and not feeling well after her scheduled dialysis session this morning. She was was told her HR was high and irregular. The patient reports she felt somewhat "funny" this AM, also stating she felt a little lightheaded and very weak all over this morning even before she left the house to go to dialysis. No complaints of melena or hematochezia. She had diarrhea a couple of weeks ago but that has improved. She states she has been taking the same medications she was discharged on (from 11/01). She produces very little urine but denies any changes to this or to her bowel habits. She states she has weakness of bilateral LE which seems worse at the end of day and seems to worsen from distal to proximal LE. She remains on her continuous oxygen via NC at 2.5L. She denies any fever, chills, diaphoresis, N/V, BETANCOURT, vertigo, syncope, falls, trauma. She states she has been eating and drinking normally with a good appetite. Prior to dialysis this AM she had some LE edema and mild SOB which she does develop right before dialysis is due. She denies any CP, palpitations, cough, abdominal pain, or nasal symptoms. Denies any visual changes. Physical Exam (per Admitting): General Appearance: WD/WN, no apparent distress Head: normocephalic, atraumatic Eyes: PERRL, EOMI ENT: hearing grossly normal Neck: supple, no JVD, no carotid bruits, trachea midline Respiratory/Chest: chest non-tender, no respiratory distress, no accessory muscle use, + crackles Cardiovascular: no edema, no gallop, no JVD, no murmur, + irregularly irregular Abdomen/GI: normal bowel sounds, non tender, soft, no organomegaly Back: normal inspection, no CVA tenderness Extremities/Musculoskelatal: normal capillary refill, no pedal edema, + pertinent finding (cramping in calf/ankle) Neurologic/Psych: no motor/sensory deficits, alert, normal mood/affect, oriented x 3 Skin: normal color, warm/dry, no rash Physical Exam (per Admitting): physical exam on admission General Appearance: WD/WN, no apparent distress Head: normocephalic, atraumatic Eyes: PERRL, EOMI ENT: hearing grossly normal Neck: supple, no JVD, no carotid bruits, trachea midline Respiratory/Chest: chest non-tender, no respiratory distress, no accessory muscle use, + crackles Cardiovascular: no edema, no gallop, no JVD, no murmur, + irregularly irregular Abdomen/GI: normal bowel sounds, non tender, soft, no organomegaly Back: normal inspection, no CVA tenderness Extremities/Musculoskelatal: normal capillary refill, no pedal edema, + pertinent finding (cramping in calf/ankle) Neurologic/Psych: no motor/sensory deficits, alert, normal mood/affect, oriented x 3 Skin: normal color, warm/dry, no rash Hospital Course 71 year old female who presented to ED after noted to be hypotensive during HD session, and tachycardic on ED presentation. Found to be anemic Hgb around 7, FOBT + with no jennifer GI bleeding and received 1 blood transfusion with stabilized hemoglobin on subsequent tests and so EGD was not indicated at this time as per inpatient GI consult. Patient again documented to have tachycardia after inpatient dialysis session with resolution of tachycardia without interventions and patient has been asymptomatic otherwise during hospital stay. Anemia -on admission 11/30/16 hemoglobin was7.5, 6.8 and received 1 unit PRBC with subsequent hemoglobin 7.4 on 12/01/16 -hemoglobin on 12/02/16 7.6 -EPO with dialysis days -GI has opted not to perform EGD Renal -usual dialysis schedule T//Tue -as per nephrology consult note on 12/01/16, hold phosphate binders for now -receiving dialysis as inpatient on 12/02/16 Respiratory/ COPD -has home oxygen prior to admission -CXR on admission: cardiomegaly but no other evidence of congestion -continue home inhalers, home oxygen PAROXYSMAL ATRIAL FIB: with RVR on admission -on warfarin, followed by coag clinic; can restart her home warfarin dose and follow up with anticoagulation clinic as outpatient -continue b-mariana (patient normally takes this after dialysis) HTN: -continue losartan/amlodipine/clonidine/metoprolol DM TYPE II: -continue insulin Has been on DVT prophylaxis with SCDs while in hospital as warfarin had been held due to anemia Disposition: discharge home with appointment to [facility] with Dr. Armando and follow up with her anticoagulation clinic after restarting coumadin at home Total time spent on discharge = This includes examination of the patient, discharge planning, medication reconciliation, and communication with other providers. Discharge Instructions Disposition: discharge home with appointment to [facility] with Dr. Armando, continue with dialysis schedule on , and follow up with her anticoagulation clinic after restarting coumadin at home
[2016-12-03 14:58] VITALS: BP 110/55; PULSE 65; TEMP 36.9; O2SAT 95
[2016-12-03] MEDS ORDERED: FUROSEMIDE INJ 40 MG in SYRINGE 0 ML IV ONE (15:30)
== END 2016-12-03 17:42 | disposition home or self-care (01) | DRG 811 ==
LOC: EDBD 11:28 → C.EDB 11:29 → C.2E 13:58 → ENRESERV 14:36
PROVIDERS: ADMIT Internal Medicine; ATTEND Hospitalist
DX: D64.9 Anemia, unspecified (principal); N18.6 End stage renal disease; I12.0 Hypertensive chronic kidney disease with stage 5 chronic kidney disease or end stage renal disease; J96.10 Chronic respiratory failure, unspecified whether with hypoxia or hypercapnia; I48.0 Paroxysmal atrial fibrillation; J44.9 Chronic obstructive pulmonary disease, unspecified; R19.5 Other fecal abnormalities; I95.3 Hypotension of hemodialysis; E11.21 Type 2 diabetes mellitus with diabetic nephropathy; E78.5 Hyperlipidemia, unspecified; L40.9 Psoriasis, unspecified; Z99.2 Dependence on renal dialysis; I34.0 Nonrheumatic mitral (valve) insufficiency; Z79.4 Long term (current) use of insulin; Z79.01 Long term (current) use of anticoagulants; Y84.1 Kidney dialysis as the cause of abnormal reaction of the patient, or of later complication, without mention of misadventure at the time of the procedure; Y92.239 Unspecified place in hospital as the place of occurrence of the external cause

== ENCOUNTER 2017-02-01 05:42 | Inpatient (IN) | payer OTHER ==
[2017-02-01] VITALS (22 sets, daily range): BP systolic 132–190; BP diastolic 63–95; PULSE 73–82; TEMP 36.6–37.1; O2SAT 90–96; BMI 35.7
[~2017-02-01] VITALS: Ht 167.6 cm; Wt 102.1 kg
[~2017-02-01 05:42] MED LIST changes: +LACT1TAB26 PO; -LVQ500 PO; +METO25TA56 PO; -PSEU1TAB PO; +[UNRECOGNIZED DRUG - CODE] PO
--- NOTE | 2017-02-01 05:49 | EMERGENCY ROOM VISIT NOTE ---
History Report prepared by Sebastian: Corey Juárez Under the Supervision of: Dr. Rashaad Bear D.O. First contact with patient: 05:41 Chief Complaint: SHORTNESS OF BREATH Stated Complaint: SOB History of Present Illness The patient is a 69 year old female who presents to the Emergency Room with complaints of constant shortness of breath beginning 2.5 hours ago. EMS states the patient is on 3L of oxygen at home, and she was found with an O2Sat of 88. They report the patient has a history of COPD and CHF. EMS notes the patient received a Duoneb in route, and her O2Sat jose to 97. The patient states she is supposed to receive dialysis today, and movement makes her symptoms worse. She reports she told EMS she denies chest pain. Source of History: patient Onset: 2.5 hours ago Position: other (global) Quality: other (SOB) Timing: constant Modifying Factors (Worsening): movement Associated Symptoms: No chest pain Review of Systems See HPI for pertinent positives and negatives. A total of ten systems were reviewed and were otherwise negative. 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 (14) History of Helicobacter pylori infection (15) Hypertension Nos (16) Moderate mitral regurgitation (17) Obesity (18) Osteoarthritis (19) Pancreatic cyst (20) Psoriasis (21) Renal cyst (22) SOB (shortness of breath) Surgical Problems: (1) H/O colonoscopy (2) H/O nasal polypectomy (3) History of cataract surgery (4) S/P appendectomy (5) S/P cholecystectomy (6) S/P left oophorectomy (7) S/P ASH (total abdominal hysterectomy) Family History Diabetes mellitus FATHER MOTHER BROTHER FH: cancer BROTHER FH: heart disease FATHER Hypertension BROTHER Kidney disease BROTHER Social History Marital Status: Occupation Status: retired Current/Historical Medications Scheduled Amlodipine (Norvasc), 10 MG PO QAM Calcium Acetate (Phoslo 667 Mg), 2 CAP PO TIDM Clonidine Hcl (Catapres), 0.1 MG PO BID Cyanocobalamin (Cyanocobalamin), 1,000 MCG IM MONTHLY Ergocalciferol (Vitamin D 62624 Unit), 50,000 UNIT PO MONTHLY Fluticasone Prop/Salmeterol (Advair Diskus 250/50 60 Dose), 2 PUFF INH BID Furosemide (Furosemide), 40 MG PO DAILY Home O2 Therapy (Oxygen), 2.5 LITERS NA CONTINOUS Insulin Aspart (Novolog Flexpen), 2-3 UNITS SQ TIDM Insulin Glargine (Lantus), 26 UNITS SC QAM Lactobacillus (Lactobacillus), 1 TAB PO UD Lactobacillus Acidophilus (Floranex), 4 TAB PO TIDM Losartan Potassium (Cozaar), 100 MG PO DAILY Metoprolol Tartrate (Lopressor) (Lopressor), 25 MG PO BID Prednisolone Acetate (Ophth) (Pred Forte 1% Oph), 1 DROPS OPL DAILY Umeclidinium Silva (Incruse Ellipta), 1 PUFF INH DAILY Valacyclovir Hcl (Valtrex), 1,000 MG PO DAILY Vitamin B Cmplx/Vitc/Folic Ac (Nephrocaps), 1 CAP PO DAILY Warfarin Sodium (Coumadin), 10 MG PO DAILY Scheduled PRN Acetaminophen (Apap), 650 MG PO Q6 PRN for Pain Albuterol Hfa (Ventolin Hfa), 2 PUFFS INH Q4 PRN for SOB/Wheezing Ipratropium-Albuterol (Duoneb), 1 TREATMENT INH QID PRN for SOB/Wheezing Lidocaine-Prilocaine (Rzejojckv-Qgxoiofhkb-Pllz 2.5-2.5 %), 1 APPLN TOP UD PRN for PRIOR TO DIALYSIS Pseudoephedrine-Guaifenesin (Cvs Mucus D Extended Rele 60-600 mg), 1 TAB PO Q12 PRN for Nasal Congestion Miscellaneous Medications Epoetin Hakan (Procrit) Allergies Coded Allergies: No Known Allergies (Verified , 10/26/16) Physical Exam Vital Signs Date Time Temp Pulse Resp B/P (MAP) Pulse Ox O2 Delivery O2 Flow Rate FiO2 02/01/17 05:51 72 02/01/17 05:42 Nasal Cannula 3.0 02/01/17 05:42 36.6 71 19 158/67 94 Nasal Cannula 3.0 02/01/17 05:42 94 Nasal Cannula 3.0 02/01/17 05:42 Nasal Cannula 3.0 Physical Exam GENERAL: Awake, alert, well-appearing, resting and in no distress HENT: Normocephalic, atraumatic. Oropharynx unremarkable. EYES: Normal conjunctiva. Sclera non-icteric. NECK: Supple. No nuchal rigidity. FROM. No JVD. RESPIRATORY: Clear to auscultation. CARDIAC: Regular rate, normal rhythm. Extremities warm and well perfused. Pulses equal. ABDOMEN: Soft, non-distended. No tenderness to palpation. No rebound or guarding. No masses. RECTAL: Deferred. MUSCULOSKELETAL: Chest examination reveals no tenderness. The back is symmetrical on inspection without obvious abnormality. There is no CVA tenderness to palpation. No joint edema. AV Graft in the upper extremity. LOWER EXTREMITIES: Calves are equal size bilaterally and non-tender. Bilateral pitting edema. No discoloration. NEURO: Normal sensorium. No sensory or motor deficits noted. SKIN: No rash or jaundice noted. Medical Decision & Procedures ER Provider Diagnostic Interpretation: X-ray: Per my interpretation, Chest x-ray: mild CHF, increase infiltrate both lower lobes bilaterally Laboratory Results Test 02/01/17 05:46 Laboratory results reviewed by me ECG Indication: SOB/dyspnea Rate (beats per minute): 67 Rhythm: normal sinus Findings: no acute ischemic change, other (Normal interval, normal axis) ED Course 0539: The patient was evaluated in room B06. A complete history and physical exam was performed. 0559: Ordered Lasix Inj 40mg IV, Solu-Medrol IV 125mg IV 0600: Upon reexamination, the patient was resting. I discussed the test results and treatment plan with her. The patient will be evaluated for further management. 0602: I discussed the patient's case with Dr. Wong, [facility] Hospitalist. The patient will be evaluated for further treatment. Medical Decision Differential diagnoses include but are not limited to; CHF, pulmonary edema, hyperkalemia, pneumonia, bronchitis, COPD exacerbation. Patient with shortness of breath due for dialysis today she's Tuesday. Improved with oxygen Treatment. Patient has a history of COPD and CHF I expect that she has CHF and COPD exacerbation with end-stage renal disease. Case discussed with the hospitalist for admission Medication Reconcilliation Current Medication List: was personally reviewed by me Blood Pressure Screening Patient's blood pressure: Elevated blood pressure Blood pressure disposition: Referred to PCP Monitored by hospitalist. Consults Time Called: 0558 Consulting Physician: [facility] Returned Call: [phone] I discussed the patient's case with [facility]ist. The patient will be evaluated for further treatment. Impression Primary Impression: SOB (shortness of breath) Additional Impressions: CHF (congestive heart failure) ESRD (end stage renal disease) on dialysis Chronic obstructive pulmonary disease Scribe Attestation The scribe's documentation has been prepared under my direction and personally reviewed by me in its entirety. I confirm that the note above accurately reflects all work, treatment, procedures, and medical decision making performed by me. Departure Information Dispostion Being Evaluated By Hospitalist Patient Instructions [facility] Problem Qualifiers
[2017-02-01] MEDS ORDERED: FUROSEMIDE 40 MG/4 ML VIAL IV STA (05:59)
[2017-02-01] MEDS ORDERED: METHYLPREDNISOLONE 125 MG VIAL IV STA (05:59)
[2017-02-01 06:05] LABS: BASO % 0.6 %; BASO ABS # 0.05 K/uL (0-0.2); EOS % 2.4 %; HEMATOCRIT 34.3 % (37-47); IG% 0.5 %; LYMPH % 8.9 %; LYMPH ABS # 0.73 K/uL (1.2-3.4); MEAN CELL VOLUME 111.7 fL (80-100); MEAN CORPUSCULAR HEMOGLOBIN 35.8 pg (25-34); MEAN CORPUSCULAR HGB CONC 32.1 g/dl (32-36); MONO % 6.2 %; NEUT % 81.4 %; PLATELET COUNT 184 K/uL (130-400); RED BLOOD COUNT 3.07 M/uL (4.2-5.4); WHITE BLOOD COUNT 8.24 K/uL (4.8-10.8)
[2017-02-01 06:06] LABS: ISTAT CREATININE 10.6 mg/dl (0.6-1.3); ISTAT HEMOGLOBIN 10.9 g/dl (12.0-16.0); ISTAT IONIZED CALCIUM 1.2 mmol/l (1.12-1.32)
[2017-02-01] MEDS ORDERED: WARF-246 PO (06:25)
[2017-02-01 06:35] LABS: ALB/GLOB RATIO 0.9 (0.9-2); ALKALINE PHOSPHATASE 86 U/L (45-117); ALT/SGPT 23 U/L (12-78); AST/SGOT 19 U/L (15-37); BLOOD UREA NITROGEN 46 mg/dl (7-18); BUN/CREATININE RATIO 4.1 (10-20); CALCIUM 9.4 mg/dl (8.5-10.1); CARBON DIOXIDE 29 mmol/L (21-32); CHLORIDE 105 mmol/L (98-107); GLUCOSE 141 mg/dl (70-99); POTASSIUM 4.5 mmol/L (3.5-5.1); SODIUM 142 mmol/L (136-145)
[2017-02-01 06:37] LABS: COMPLETE YES; POLYCHROMASIA 1+
--- NOTE | 2017-02-01 06:43 | DIAGNOSTIC IMAGING REPORT ---
CHEST ONE VIEW PORTABLE HISTORY: 71 years-old Female sob acute shortness of breath COMPARISON: Chest radiograph 11/30/2016 TECHNIQUE: Portable upright AP view of the chest FINDINGS: Cardiac silhouette is mildly enlarged, unchanged. Pulmonary vascular congestion is noted with mild background interstitial coarsening. Atherosclerosis of the aorta. There is no pneumothorax. Patchy perihilar and bibasilar opacities are noted with trace left pleural effusion. Bones of the chest are grossly intact. Suspected bilateral rotator cuff calcific tendinosis. Degenerative changes of the spine and shoulders noted. IMPRESSION: 1. Cardiomegaly with suggested mild developing pulmonary edema pattern and trace left pleural effusion. 2. Hazy bibasilar consolidative opacities suggest atelectasis or pneumonia. The above report was generated using voice recognition software. It may contain grammatical, syntax or spelling errors. Electronically signed by: Rojelio Osborn M.D. 02/01/2017 6:42 AM Dictated Date/Time: 02/01/2017 6:40 AM
[2017-02-01] MEDS ORDERED: ALBUT/IPRATROP 3MG/0.5MG NEB 3 ML VIAL INH PRN (06:45)
[2017-02-01] MEDS ORDERED: ALBUT/IPRATROP 3MG/0.5MG NEB 3 ML VIAL ONE (06:48)
[2017-02-01 06:50] LABS: MAGNESIUM 2.4 mg/dl (1.8-2.4)
[2017-02-01] MEDS ORDERED: FUROSEMIDE INJ 40 MG in SYRINGE 0 ML IV STA (06:59)
[2017-02-01] MEDS ORDERED: GLUCOSE 10 TABS/TUBE PO PRN (07:00)
[2017-02-01] MEDS ORDERED: TRAMADOL HCL 50 MG TAB PO PRN (07:00)
[2017-02-01] MEDS ORDERED: ONDANSETRON INJ 2 MG/ML 2 ML VIAL IV PRN (07:00)
[2017-02-01] MEDS ORDERED: ACETAMINOPHEN 325 MG TAB PO PRN (07:00)
[2017-02-01] MEDS ORDERED: NITROGLYCERIN 0.4 MG SL PER TAB CHARGE SL PRN (07:00)
[2017-02-01] MEDS ORDERED: GLUCOSE 40% GEL 15 GM TUBE PO PRN (07:00)
[2017-02-01] MEDS ORDERED: HYDROmorphone INJ 0.5 MG/0.5 ML SYR IV PRN (07:00)
[2017-02-01] MEDS ORDERED: GLUCAGON FOR INJ 1 MG VIAL SQ PRN (07:00)
[2017-02-01] MEDS ORDERED: DEXTROSE 50% 50 ML SYR IV PRN (07:00)
[2017-02-01 07:14] LABS: INR 1.5 (0.9-1.1); PARTIAL THROMBOPLASTIN RATIO 1.4; PROTHROMBIN TIME (PATIENT) 16.3 SECONDS (9.0-12.0)
[2017-02-01] MEDS ORDERED: ALBUT/IPRATROP 3MG/0.5MG NEB 3 ML VIAL INH STA (07:23)
--- NOTE | 2017-02-01 07:45 | HISTORY & PHYSICAL EXAMINATION ---
DATE OF ADMISSION: 02/01/2017 PRIMARY CARE PHYSICIAN: Dr. Armando. CHIEF COMPLAINT: Shortness of breath. HISTORY OF PRESENT ILLNESS: History obtained from patient and records. Medical history significant for chronic respiratory failure secondary to COPD on home O2, ongoing tobacco abuse, hypertension, PAF on Coumadin, history of mitral regurgitation, end-stage renal disease on dialysis, DM2 insulin requiring, HSV iridocyclitis left ongoing treatment Chronic anemia (baseline hemoglobin 7-9) Recent confinement last November 2016 for tachycardia after dialysis. As per patient, she was being taken off dialysis early because her blood pressure would be undetectable. Increasing shortness of breath on exertion the last few days. No unusual cough symptoms, some chest tightness. Denies dietary indiscretion. Hypoglycemic at some point. Brought to the Emergency Room. Given Lasix for pulmonary congestion, Solu-Medrol for possible COPD exacerbation. MEDICAL HISTORY: As above. Dialysis on Tuesday, , Tuesday. A 2D echo from 11/11/2016 showed LVH, EF 70%, aortic valve sclerosis, moderate to severe MR. SURGERIES: She has had vascular procedures, eye surgery, appendectomy, hysterectomy, oophorectomy, cholecystectomy and polypectomy. HOME MEDICATIONS: Include prednisolone, Valtrex, Ellipta, Nephrocaps, NovoLog, Lantus, Cozaar, lactobacillus lidocaine, Lopressor, vitamin D, Procrit, Advair Diskus, home O2, DuoNebs, Tylenol, Ventolin, Norvasc, clonidine, PhosLo, cyanocobalamin. ALLERGIES: No known drug allergies. FAMILY HISTORY: Diabetes, heart disease, hypertension. PERSONAL AND SOCIAL HISTORY: Few cigarettes today. No chronic intake of alcoholic beverages. 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 REVIEW OF SYSTEMS: As per HPI, all other ROS negative. PHYSICAL EXAMINATION: VITAL SIGNS: Blood pressure was noted to be 158/77, later 117/70, pulse rate 90, RR 16, sats 94 on 3 liters. GENERAL: Noted to be anxious, no overt respiratory distress. Obese. SKIN: Sallow, warm. HEENT: Pale palpebral conjuctivae, mild ptosis on the left w/ epiphora, dry buccal mucosa. NECK: Short neck. No tenderness. CHEST: Decreased effort. No tenderness. HEART: Regular, rate and rhythm, systolic murmur. ABDOMEN: Some distension, nontender. EXTREMITIES: Bilateral lower extremity edema, no tenderness. No gross deformity. NEUROLOGIC: Coherent. No gross focality. LABS: Hemoglobin was noted to be 11, hematocrit 40.2, white cells 8.34, platelets 184. Sodium 142, potassium 4.5, chloride 105, CO2 of 29, BUN noted to be 46, creatinine 11, glucose was noted to be 141, troponin negative INR still pending hemoglobin A1c from September of 2016 was 5.9. Chest x-ray as per my interpretation pulmonary congestion, atelectasis, cardiomegaly. EKG as per my interpretation, normal sinus rhythm, negative ischemia. ASSESSMENT: 1. Shortness of breath pulmonary congestion, fluid overload. Incomplete recent dialysis sessions as per patient secondary to blood pressure issues as per patient account. 2. HTN, elevated Unknown control at home 3. Chronic respiratory failure 2 to COPD on home O2 Doubt acute exacerbation of disease given patient account of chronic smoker's cough symptoms. Oxygenation seems to be at baseline 4. ongoing tobacco abuse. 5. DM2, insulin requiring, well controlled as of recent outpatient HgA1c. Occasional hypoglycemic episodes at home. 6. Paroxysmal atrial fibrillation on Coumadin Currently NSR, INR still pending. 7. Valvular heart disease (mitral regurgitation as per records) 8. HSV iridocyclitis ongoing treatment with acyclovir, prednisolone. 9. Chronic anemia 2 to ESRD, Hg better than baseline PLAN: PCU supplemental O2. Baseline ABG. Nebs, additional Lasix given her renal function, Nephrology consult. RE dialysis management. Monitor blood pressure. May need to titrate blood pressure medications. Patient counseled to stop smoking. Decrease basal insulin, ISS BG goal 140/180. Patient due for hemoglobin A1c recheck. PT OT eval DVT prophylaxis, Coumadin INR 2-3. Full code. MTDD
--- NOTE | 2017-02-01 07:58 | NEPHROLOGY CONSULTATION ---
DATE OF CONSULTATION: 02/01/2017 ATTENDING OF RECORD: Jacqueline Hyatt DO. REASON FOR CONSULTATION: ESRD. HISTORY OF PRESENT ILLNESS: This 71-year-old female who dialyzes at the [facility] on Tuesdays, , and Saturdays. The patient has been having difficulty removing fluid over the past several weeks and we have had to raise her dry weight gradually up. The patient has been cramping very easily, the patient normally on oxygen and uses nebulizers at home, continues to smoke cigarettes. The patient woke up this morning with significant shortness of breath and came in via EMS. The patient is starting to breathe better now, was given nebulizer treatments, and 40 of IV Lasix, 125 mg of IV Solu-Medrol. The patient had a chest x-ray done which showed a hazy bibasilar consolidative opacities suggesting atelectasis or pneumonia with cardiomegaly with suggestion of mild developing pulmonary edema pattern and trace left pleural effusion. REVIEW OF SYSTEMS: No fevers or chills. No headaches, no blurry vision. Positive shortness of breath. No chest pain. Positive diarrhea. Positive decreased appetite. No nausea, vomiting. No rash or itching. All other review of systems otherwise negative. PAST MEDICAL HISTORY: Atrial fibrillation, COPD on chronic oxygen, type 2 diabetes, end-stage renal disease, hypertension, osteoarthritis. PAST SURGICAL HISTORY: Fistula placement, appendectomy, cholecystectomy, hysterectomy, cataract surgeries. FAMILY HISTORY: Significant for diabetes and heart disease. SOCIAL HISTORY: No alcohol, active tobacco, no drugs. Lives with family. CURRENT MEDICATIONS: DuoNeb p.r.n., Norvasc 10 mg a day, PhosLo 2 p.o. t.i.d. with meals, clonidine 0.1 mg p.o. b.i.d., Lasix 40 mg daily, Advair inhaler twice a day, Lantus 5 units subQ daily, Cozaar 100 mg daily, Lopressor 25 mg p.o. b.i.d., Valtrex 1 gram p.o. daily, Nephrocaps daily. PHYSICAL EXAMINATION: VITAL SIGNS: Blood pressure 171/66, respiratory rate 22, pulse 74, pulse ox is 96% on 3 liters, temperature 36.6. GENERAL: Awake, alert, oriented x3. EYES: No scleral icterus. ENT: Moist mucous membranes. NECK: Supple. PULMONARY: Decreased breath sounds at the bases. CARDIAC: Regular rate and rhythm. ABDOMEN: Bowel sounds positive, soft, nontender. EXTREMITIES: Mild edema. NEUROLOGICALLY: Nonfocal. DERMATOLOGIC: No rash or ulcers noted. LABORATORY DATA: Sodium is 141, potassium is 4.5, chloride is 102, bicarb is 29, BUN is 46, creatinine is 10.6, glucose 141, ionized calcium is 1.20, albumin is 3.4. White count is 8, H&H 10.9 and 32, platelet count is 184. INR is 1.5. VBG shows a pH of 7.38, pCO2 of 52, pO2 of 36, bicarbonate of 30. IMPRESSION AND PLAN: 1. End-stage renal disease. The patient's regular scheduled dialysis is today and have been having difficulty removing fluid on dialysis for the last several weeks and had to raise her dry rate. We will try to attempt 2 liters of fluid removal today with the use of albumin. Perhaps by using albumin, the patient will be able to tolerate fluid removal better. Unclear if this is purely congestive heart failure, though it could be more of chronic obstructive pulmonary disease exacerbation where steroids and nebulizers may be of more benefit as well as looking for possible signs of infection as well. The patient is chronic obstructive pulmonary disease, oxygen dependent, using nebulizers and with the change in seasons and the weather becoming colder, the patient's breathing has worsened over the past month. We will dialyze today and reevaluate tomorrow to see if the patient would benefit at all from daily dialysis. 2. Anemia of renal failure. Hemoglobin levels at 11-10.9. We will hold Procrit today and follow labs. 3. Renal osteodystrophy. We will continue patient's phosphate binders and follow phosphorus levels intermittently throughout this hospitalization. Appreciate consultation.
[2017-02-01] MEDS: CALCIUM ACETATE 667MG GELCAP PO SCH ×3 (08:00→17:22)
[2017-02-01] MEDS: FLUTICASONE/SALMETEROL 250/50 (ADVAIR) 14 PUFF/1 INHALER INH SCH ×2 (08:14→20:56)
[2017-02-01] MEDS: PrednisoLONE ACET 1% OP SUSP 5 ML BTL OPL SCH (08:14)
[2017-02-01] MEDS: INSULIN GLARGINE SOLOSTAR 100 UNITS/ML 3 ML PEN SC SCH (08:22)
[2017-02-01] MEDS ORDERED: METOPROLOL TARTRATE 25 MG TAB PO ONE (08:30)
[2017-02-01] MEDS ORDERED: WARFARIN SOD 5 MG TAB PO ONE (08:30)
[2017-02-01] MEDS ORDERED: METOPROLOL TARTRATE 25 MG TAB PO SCH (09:00)
[2017-02-01] MEDS ORDERED: INFLUENZA ADMINISTRATION CHARGE ONE (09:15)
[2017-02-01] MEDS ORDERED: INFLUENZA VACCINE HIGH DOSE 65+ 0.5 ML SYR IM. ONE (09:15)
[2017-02-01] MEDS: ALBUMIN HUMAN 25% 12.5 GM/50 ML VIAL IV SCH ×2 (09:45→10:45)
[2017-02-01] MEDS ORDERED: PNEUMOCOCCAL ADMINISTRATION CHARGE ONE (10:00)
[2017-02-01] MEDS ORDERED: PNEUMOCOCCAL POLYSACCHARIDES 25 MCG/0.5 ML VIAL/SYR IM. ONE (10:00)
[2017-02-01] MEDS: INSULIN ASPART 100 UNITS/ML 3 ML PEN SC SCH ×3 (11:00→21:01)
[2017-02-01 13:26] LABS: ESTIMATED AVERAGE GLUCOSE 128 mg/dl; HA1C FLAG Normal (Normal)
[2017-02-01] MEDS: AMLODIPINE BESYLATE 5 MG TAB PO SCH (13:30)
[2017-02-01] MEDS: CLONIDINE HCL 0.1 MG TAB PO SCH ×2 (13:31→20:57)
[2017-02-01] MEDS: LOSARTAN POTASSIUM 50 MG TAB PO SCH (13:31)
[2017-02-01] MEDS: NEPHROCAPS PO SCH (13:32)
--- NOTE | 2017-02-01 17:18 | Progress Note ---
Medicine Progress Note Date & Time of Visit: Feb 01, 2017 at 17:18. Subjective See patient H&P from early this AM for more details. Patient was seen after dialysis today which she states was a limited run because she began having severe cramping in her legs. States her breathing seems a little better overall. Denies any new complaints. States she has a non- productive cough. Objective Last 8 Hrs Date Time Temp Pulse Resp B/P (MAP) Pulse Ox O2 Delivery O2 Flow Rate FiO2 02/01/17 15:51 94 Nasal Cannula 3.0 02/01/17 15:26 37.1 77 20 152/66 (94) 94 Nasal Cannula 3.0 02/01/17 14:27 36.9 82 20 161/64 (96) 96 Room Air 02/01/17 13:45 Nasal Cannula 3.0 02/01/17 12:47 36.6 81 177/70 (105) 02/01/17 12:30 77 173/74 02/01/17 12:15 77 174/71 02/01/17 12:00 78 169/82 02/01/17 11:45 78 177/73 02/01/17 11:30 77 177/77 02/01/17 11:15 78 178/76 02/01/17 11:00 78 181/76 02/01/17 10:45 80 156/73 02/01/17 10:30 76 174/79 02/01/17 10:15 75 178/75 02/01/17 10:00 74 184/75 02/01/17 09:45 73 186/75 02/01/17 09:35 36.9 77 190/95 (126) Physical Exam: GENERAL: Patient is in no acute distress. HEENT: No acute trauma, normocephalic atraumatic, mucous membranes moist, no nasal congestion, no scleral icterus. NECK: No stridor, trachea is midline. LUNGS: Diminished breath sounds bilaterally, bibasilar crackles, no wheeze, no rhonchi HEART: Without murmurs gallops or rubs, regular rate and rhythm. ABDOMEN: Soft, nontender, bowel sounds positive, no hepatosplenomegaly EXTREMITIES: No cyanosis or edema, full range of motion of all the joints without pain or difficulty, no signs for acute trauma. NEUROLOGIC: Oriented x 3, no acute motor or sensory deficits, no focal weakness. SKIN: No rash, no jaundice, no diaphoresis. Laboratory Results: Last 24 Hours Test 02/01/17 05:23 02/01/17 05:25 02/01/17 05:52 02/01/17 05:54 Prothrombin Time 16.3 SECONDS Prothromb Time International Ratio 1.5 Activated Partial Thromboplast Time 35.6 SECONDS Partial Thromboplastin Ratio 1.4 White Blood Count 8.24 K/uL Red Blood Count 3.07 M/uL Hemoglobin 11.0 g/dL Hematocrit 34.3 % Mean Corpuscular Volume 111.7 fL Mean Corpuscular Hemoglobin 35.8 pg Mean Corpuscular Hemoglobin Concent 32.1 g/dl Platelet Count 184 K/uL Mean Platelet Volume 10.0 fL Neutrophils (%) (Auto) 81.4 % Lymphocytes (%) (Auto) 8.9 % Monocytes (%) (Auto) 6.2 % Eosinophils (%) (Auto) 2.4 % Basophils (%) (Auto) 0.6 % Neutrophils # (Auto) 6.71 K/uL Lymphocytes # (Auto) 0.73 K/uL Monocytes # (Auto) 0.51 K/uL Eosinophils # (Auto) 0.20 K/uL Basophils # (Auto) 0.05 K/uL RDW Standard Deviation 64.2 fL RDW Coefficient of Variation 15.8 % Immature Granulocyte % (Auto) 0.5 % Immature Granulocyte # (Auto) 0.04 K/uL Polychromasia 1+ Macrocytosis PRESENT Sodium Level 142 mmol/L Potassium Level 4.5 mmol/L Chloride Level 105 mmol/L Carbon Dioxide Level 29 mmol/L Anion Gap 8.0 mmol/L 15.0 mmol/L Blood Urea Nitrogen 46 mg/dl Creatinine 11.10 mg/dl Est Creatinine Clear Calc Drug Dose 5.7 ml/min Estimated GFR () 3.6 Estimated GFR (Non- 3.1 BUN/Creatinine Ratio 4.1 Random Glucose 141 mg/dl Estimated Average Glucose 128 mg/dl Hemoglobin A1c 6.1 % Calcium Level 9.4 mg/dl Magnesium Level 2.4 mg/dl Total Bilirubin 1.0 mg/dl Aspartate Amino Transf (AST/SGOT) 19 U/L Alanine Aminotransferase (ALT/SGPT) 23 U/L Alkaline Phosphatase 86 U/L Troponin I < 0.015 ng/ml Total Protein 7.0 gm/dl Albumin 3.4 gm/dl Globulin 3.6 gm/dl Albumin/Globulin Ratio 0.9 Bedside Hemoglobin 10.9 g/dl Bedside Hematocrit 32 % Bedside Sodium 141 mEq/L Bedside Potassium 4.5 mEq/L Bedside Chloride 102 mEq/L Bedside Total CO2 29 mEq/l Bedside Blood Urea Nitrogen 46 mg/dl Bedside Creatinine 10.6 mg/dl Bedside Glucose (other) 141 mg/dl Bedside Ionized Calcium (Tyler) 1.20 mmol/l Bedside Troponin I 0.040 ng/ml Test 02/01/17 06:31 02/01/17 08:18 02/01/17 13:36 02/01/17 14:39 Venous Blood pH 7.38 Venous Blood Partial Pressure CO2 52 mmHg Venous Blood Partial Pressure O2 36 mmHg Venous Blood HCO3 30 mmol/L Venous Blood Oxygen Saturation 64.0 % Venous Blood Base Excess 4.0 mEq/L Bedside Glucose 183 mg/dl 178 mg/dl Troponin I < 0.015 ng/ml Test 02/01/17 16:25 Bedside Glucose 331 mg/dl Assessment & Plan SHORTNESS OF BREATH: improving -CXR mentions mild cardiomegaly, trace left pleural effusion, suggested mild developing pulmonary edema pattern; hazy bibasilar consolidative opacities suggest atelectasis or pneumonia -symptoms slightly better since dialysis today, requiring oxygen at her usual baseline rate -no evidence of pneumonia/infectious etiology, no wheezing -has known COPD and reports symptoms being worse at night, possibly bronchitis CHRONIC ANEMIA: has anemia of chronic disease due to ESRD -Hb 9.4 -baseline Hb 9-10 per records ESRD on HD: -has HD every Tuesday, , Tuesday; s/p dialysis this AM -Nephrology consulted -Procrit as per Nephro -strict I's and O's, daily weights PAROXYSMAL ATRIAL FIB: -on Coumadin, followed by coag clinic -INR subtherapeutic at 1.5 -continue b-mariana (patient normally takes this after dialysis) -rate controlled COPD: -on continuous O2; no changes, still on 2-2.5L -history of tobacco use, still smoking -continue home inhalers -does not appear to be in exacerbation HTN: -continue home meds -monitor DM TYPE II: -continue Lantus + Novolog sliding scale -BSG AC and HS Current Inpatient Medications: Current Inpatient Medications Medications (Trade) Dose Ordered Sig/Joan Route Start Time Stop Time Status Last Admin Dose Admin Albuterol/ Ipratropium (Duoneb) 3 ml Q2H PRN INH 02/01/17 06:45 03/03/17 06:44 Acetaminophen (Tylenol Tab) 650 mg Q4H PRN PO 02/01/17 07:00 03/03/17 06:59 Nitroglycerin (Nitrostat Tab) 0.4 mg UD PRN SL 02/01/17 07:00 03/03/17 06:59 Insulin Aspart (novoLOG ASPART) SLIDING SCALE If C... ACHS SC 02/01/17 11:00 03/03/17 10:59 Glucose (Glucose 40% Gel) 15-30 GRAMS 15 GRAMS... UD PRN PO 02/01/17 07:00 03/03/17 06:59 Glucose (Glucose Chew Tab) 4-8 Tablets 4 Tabl... UD PRN PO 02/01/17 07:00 03/03/17 06:59 Dextrose (Dextrose 50% 50ML Syringe) 25-50ML OF 50% DW IV FOR... UD PRN IV 02/01/17 07:00 03/03/17 06:59 Glucagon (Glucagon Inj) 1 mg UD PRN SQ 02/01/17 07:00 03/03/17 06:59 Hydromorphone HCl (Dilaudid Inj) 0.5 mg Q3H PRN IV 02/01/17 07:00 02/15/17 06:59 Tramadol HCl (Ultram Tab) 25 mg Q6H PRN PO 02/01/17 07:00 03/03/17 06:59 Ondansetron HCl (Zofran Inj) 4 mg Q6H PRN IV 02/01/17 07:00 03/03/17 06:59 Amlodipine Besylate (Norvasc Tab) 10 mg QAM PO 02/01/17 09:00 03/03/17 08:59 02/01/17 13:30 10 MG Calcium Acetate (Phoslo Cap) 1,334 mg TIDM PO 02/01/17 08:00 03/03/17 07:59 02/01/17 13:31 1,334 MG Clonidine HCl (Catapres Tab) 0.1 mg BID PO 02/01/17 09:00 03/03/17 08:59 02/01/17 13:31 0.1 MG Salmeterol Xinafoate/ Fluticasone (Advair Diskus 250/50 Inh) 2 puff BID INH 02/01/17 09:00 03/03/17 08:59 02/01/17 08:14 2 PUFF Furosemide (Lasix Tab) 40 mg DAILY PO 02/02/17 09:00 03/04/17 08:59 Insulin Glargine (Lantus Solostar Pen) 5 units QAM SC 02/01/17 09:00 03/03/17 08:59 02/01/17 08:22 5 UNITS Losartan Potassium (coZAAR TAB) 100 mg DAILY PO 02/01/17 09:00 03/03/17 08:59 02/01/17 13:31 100 MG Prednisolone Acetate (Pred Forte 1% Oph Susp) 1 drops DAILY OPL 02/01/17 09:00 03/03/17 08:59 02/01/17 08:14 1 DROPS Valacyclovir HCl (Valtrex Tab) 1,000 mg DAILY PO 02/01/17 09:00 02/11/17 08:59 02/01/17 13:32 1,000 MG Vitamin B Complex/ Vit C/Folic Acid (Nephrocaps) 1 cap DAILY PO 02/01/17 09:00 03/03/17 08:59 02/01/17 13:32 1 CAP Miscellaneous Information (Order Awaiting Action) 1 ea QS N/A 02/01/17 08:00 03/03/17 07:59 Warfarin Sodium (Coumadin Tab) 5 mg DAILY@16 PO 02/02/17 16:00 03/04/17 15:59 Metoprolol Tartrate (Lopressor Tab) 25 mg BID PO 02/01/17 21:00 03/03/17 08:59
[2017-02-01] MEDS: METOPROLOL TARTRATE 25 MG TAB PO SCH (20:57)
[2017-02-02] VITALS (9 sets, daily range): BP systolic 128–175; BP diastolic 53–72; PULSE 61–72; TEMP 36.5–36.6; O2SAT 91–100
[2017-02-02 06:08] LABS: BASO % 0.1 %; BASO ABS # 0.01 K/uL (0-0.2); EOS % 0.8 %; IG% 0.4 %; LYMPH % 13.8 %; LYMPH ABS # 1.01 K/uL (1.2-3.4); MEAN CELL VOLUME 112.4 fL (80-100); MEAN CORPUSCULAR HEMOGLOBIN 35.2 pg (25-34); MEAN CORPUSCULAR HGB CONC 31.3 g/dl (32-36); MEAN PLATELET VOLUME 9.4 fL (7.4-10.4); MONO % 7.5 %; NEUT % 77.4 %; PLATELET COUNT 173 K/uL (130-400); RED BLOOD COUNT 2.67 M/uL (4.2-5.4)
[2017-02-02 06:25] LABS: INR 1.5 (0.9-1.1); PROTHROMBIN TIME (PATIENT) 16.5 SECONDS (9.0-12.0)
[2017-02-02] MEDS: INSULIN ASPART 100 UNITS/ML 3 ML PEN SC SCH ×4 (06:30→21:00)
[2017-02-02 06:53] LABS: CALCIUM 8.1 mg/dl (8.5-10.1); COMPLETE YES; CREATININE 9.08 mg/dl (0.60-1.20); POTASSIUM 4.5 mmol/L (3.5-5.1)
--- NOTE | 2017-02-02 07:38 | Clinical Documentation Query ---
CLINICAL DOCUMENTATION QUERY 69 year old female who presents to the Emergency Room with complaints of constant shortness of breath In your clinical opinion is this patient being managed for: ( ) Acute preserved EF CHF in setting of valvular heart disease, ESRD, and reported incomplete dialysis session. ( ) Not Agree ( ) Other explanation of clinical findings (Please Explain) ( ) Unable to determine (Please Define) ( ) Need to Discuss The medical record reflects the following clinical findings, treatment, and risk factors. Clinical Indicators: SOB, increased O2 requirement Treatment: telemetry, I/O's, daily weights, Lasix, Urgent dialysis treatment Risk Factors: Age, ESRD, HTN, valvular HD. Please clarify and document your clinical opinion in the progress notes and discharge summary. Terms such as "probable", "suspected", "likely", "questionable", "possible", or "still to be ruled out" are acceptable. IF IN AGREEMENT, YOU MUST DOCUMENT ABOVE DIAGNOSTIC STATEMENT IN DAILY PROGRESS NOTES AND DISCHARGE SUMMARY. This document is not part of the patient's record. Thank You, Alec Kaye, MICHELLE [phone]
[2017-02-02] MEDS: CALCIUM ACETATE 667MG GELCAP PO SCH ×3 (08:24→17:11)
[2017-02-02] MEDS: NEPHROCAPS PO SCH (08:24)
[2017-02-02] MEDS: CLONIDINE HCL 0.1 MG TAB PO SCH ×2 (08:24→21:41)
[2017-02-02] MEDS: FLUTICASONE/SALMETEROL 250/50 (ADVAIR) 14 PUFF/1 INHALER INH SCH ×2 (08:24→21:40)
[2017-02-02] MEDS: METOPROLOL TARTRATE 25 MG TAB PO SCH ×2 (08:24→21:42)
[2017-02-02] MEDS: AMLODIPINE BESYLATE 5 MG TAB PO SCH (08:24)
[2017-02-02] MEDS: FUROSEMIDE 40 MG TAB PO SCH (08:24)
[2017-02-02] MEDS: LOSARTAN POTASSIUM 50 MG TAB PO SCH (08:25)
[2017-02-02] MEDS: PrednisoLONE ACET 1% OP SUSP 5 ML BTL OPL SCH (08:25)
[2017-02-02] MEDS: INSULIN GLARGINE SOLOSTAR 100 UNITS/ML 3 ML PEN SC SCH (08:32)
--- NOTE | 2017-02-02 08:33 | Nephrology Progress Note ---
Nephrology Progress Note Date of Service: Feb 02, 2017. Subjective 71 yo female with underlying copd on chronic oxygen and nebs at home presented with worsening sob. underwent dialysis yesterday and removed about 1600cc. did undergo significant cramping. pt with no edema. still have tightness and not loosening up. unable to cough it up. Objective Date Time Temp Pulse Resp B/P (MAP) Pulse Ox O2 Delivery O2 Flow Rate FiO2 02/02/17 04:21 36.6 64 16 130/72 (91) 95 Nasal Cannula 4.0 02/02/17 04:00 Nasal Cannula 3.0 02/02/17 00:01 Nasal Cannula 3.0 02/01/17 23:51 36.9 73 16 132/67 (88) 96 Nasal Cannula 3.0 02/01/17 20:00 96 Nasal Cannula 3.0 02/01/17 19:55 37.0 77 22 151/63 (92) 96 Room Air 02/01/17 15:51 94 Nasal Cannula 3.0 02/01/17 15:26 37.1 77 20 152/66 (94) 94 Nasal Cannula 3.0 02/01/17 14:27 36.9 82 20 161/64 (96) 96 Room Air 02/01/17 13:45 Nasal Cannula 3.0 02/01/17 12:47 36.6 81 177/70 (105) 02/01/17 12:30 77 173/74 02/01/17 12:15 77 174/71 02/01/17 12:00 78 169/82 02/01/17 11:45 78 177/73 02/01/17 11:30 77 177/77 02/01/17 11:15 78 178/76 02/01/17 11:00 78 181/76 02/01/17 10:45 80 156/73 02/01/17 10:30 76 174/79 02/01/17 10:15 75 178/75 02/01/17 10:00 74 184/75 02/01/17 09:45 73 186/75 02/01/17 09:35 36.9 77 190/95 (126) 02/01/17 08:45 36.6 76 22 177/70 Nasal Cannula 3.0 Physical Exam: General-[id number] Eyes-no scleral icterus ENT-mmm Neck-supple Lungs-minimal air movement Heart-rrr Abdomen-bs+ s/nt/nd Extremities-no c/c/e Neuro-nonfocal Current Inpatient Medications Medications (Trade) Dose Ordered Sig/Joan Route Start Time Stop Time Status Last Admin Dose Admin Albuterol/ Ipratropium (Duoneb) 3 ml Q2H PRN INH 02/01/17 06:45 03/03/17 06:44 Acetaminophen (Tylenol Tab) 650 mg Q4H PRN PO 02/01/17 07:00 03/03/17 06:59 Nitroglycerin (Nitrostat Tab) 0.4 mg UD PRN SL 02/01/17 07:00 03/03/17 06:59 Insulin Aspart (novoLOG ASPART) SLIDING SCALE If C... ACHS SC 02/01/17 11:00 03/03/17 10:59 02/01/17 21:01 3 UNITS Glucose (Glucose 40% Gel) 15-30 GRAMS 15 GRAMS... UD PRN PO 02/01/17 07:00 03/03/17 06:59 Glucose (Glucose Chew Tab) 4-8 Tablets 4 Tabl... UD PRN PO 02/01/17 07:00 03/03/17 06:59 Dextrose (Dextrose 50% 50ML Syringe) 25-50ML OF 50% DW IV FOR... UD PRN IV 02/01/17 07:00 03/03/17 06:59 Glucagon (Glucagon Inj) 1 mg UD PRN SQ 02/01/17 07:00 03/03/17 06:59 Hydromorphone HCl (Dilaudid Inj) 0.5 mg Q3H PRN IV 02/01/17 07:00 02/15/17 06:59 Tramadol HCl (Ultram Tab) 25 mg Q6H PRN PO 02/01/17 07:00 03/03/17 06:59 Ondansetron HCl (Zofran Inj) 4 mg Q6H PRN IV 02/01/17 07:00 03/03/17 06:59 Amlodipine Besylate (Norvasc Tab) 10 mg QAM PO 02/01/17 09:00 03/03/17 08:59 02/01/17 13:30 10 MG Calcium Acetate (Phoslo Cap) 1,334 mg TIDM PO 02/01/17 08:00 12/7/17 07:59 02/01/17 17:22 1,334 MG Clonidine HCl (Catapres Tab) 0.1 mg BID PO 02/01/17 09:00 03/03/17 08:59 02/01/17 20:57 0.1 MG Salmeterol Xinafoate/ Fluticasone (Advair Diskus 250/50 Inh) 2 puff BID INH 02/01/17 09:00 03/03/17 08:59 02/01/17 20:56 2 PUFF Furosemide (Lasix Tab) 40 mg DAILY PO 02/02/17 09:00 03/04/17 08:59 Insulin Glargine (Lantus Solostar Pen) 5 units QAM SC 02/01/17 09:00 03/03/17 08:59 02/01/17 08:22 5 UNITS Losartan Potassium (coZAAR TAB) 100 mg DAILY PO 02/01/17 09:00 03/03/17 08:59 02/01/17 13:31 100 MG Prednisolone Acetate (Pred Forte 1% Oph Susp) 1 drops DAILY OPL 02/01/17 09:00 03/03/17 08:59 02/01/17 08:14 1 DROPS Valacyclovir HCl (Valtrex Tab) 1,000 mg DAILY PO 02/01/17 09:00 02/11/17 08:59 02/01/17 13:32 1,000 MG Vitamin B Complex/ Vit C/Folic Acid (Nephrocaps) 1 cap DAILY PO 02/01/17 09:00 03/03/17 08:59 02/01/17 13:32 1 CAP Miscellaneous Information (Order Awaiting Action) 1 ea QS N/A 02/01/17 08:00 03/03/17 07:59 Warfarin Sodium (Coumadin Tab) 5 mg DAILY@16 PO 02/02/17 16:00 03/04/17 15:59 Metoprolol Tartrate (Lopressor Tab) 25 mg BID PO 02/01/17 21:00 03/03/17 08:59 02/01/17 20:57 25 MG Last 24 Hours Test 02/01/17 13:36 02/01/17 14:39 02/01/17 16:25 02/01/17 20:05 Bedside Glucose 178 mg/dl 331 mg/dl 326 mg/dl Troponin I < 0.015 ng/ml Test 02/02/17 05:43 02/02/17 07:50 White Blood Count 7.30 K/uL Red Blood Count 2.67 M/uL Hemoglobin 9.4 g/dL Hematocrit 30.0 % Mean Corpuscular Volume 112.4 fL Mean Corpuscular Hemoglobin 35.2 pg Mean Corpuscular Hemoglobin Concent 31.3 g/dl Platelet Count 173 K/uL Mean Platelet Volume 9.4 fL Neutrophils (%) (Auto) 77.4 % Lymphocytes (%) (Auto) 13.8 % Monocytes (%) (Auto) 7.5 % Eosinophils (%) (Auto) 0.8 % Basophils (%) (Auto) 0.1 % Neutrophils # (Auto) 5.64 K/uL Lymphocytes # (Auto) 1.01 K/uL Monocytes # (Auto) 0.55 K/uL Eosinophils # (Auto) 0.06 K/uL Basophils # (Auto) 0.01 K/uL RDW Standard Deviation 65.2 fL RDW Coefficient of Variation 16.3 % Immature Granulocyte % (Auto) 0.4 % Immature Granulocyte # (Auto) 0.03 K/uL Macrocytosis PRESENT Prothrombin Time 16.5 SECONDS Prothromb Time International Ratio 1.5 Sodium Level 139 mmol/L Potassium Level 4.5 mmol/L Chloride Level 101 mmol/L Carbon Dioxide Level 29 mmol/L Anion Gap 10.0 mmol/L Blood Urea Nitrogen 45 mg/dl Creatinine 9.08 mg/dl Est Creatinine Clear Calc Drug Dose 7.0 ml/min Estimated GFR () 4.6 Estimated GFR (Non- 4.0 BUN/Creatinine Ratio 5.0 Random Glucose 157 mg/dl Calcium Level 8.1 mg/dl Bedside Glucose 130 mg/dl Assessment & Plan ESRD-had dialysis yesterday. will rest today and attempt dialysis again tomorrow. still with minimal air movement and sounds tight. question if any role for steroids. defer to primary hospitalist.
[2017-02-02] MEDS: WARFARIN SOD 5 MG TAB PO SCH (17:12)
[2017-02-02 17:13] LABS: URINE APPEARANCE CLEAR (CLEAR); URINE BILIRUBIN NEG (NEG); URINE COLOR YELLOW; URINE EPITHELIAL CELL AUTO >30 /lpf (0-5); URINE NITRITE NEG (NEG); URINE PH 7.5 (4.5-7.5); URINE SPECIFIC GRAVITY 1.017 (1.000-1.030); UROBILINOGEN NEG (NEG)
[2017-02-02 17:18] LABS: MANUAL MICROSCOPIC REQUIRED? NO; REVIEW REQ? NO; SULFASALICYLIC ACID POS (NEG)
--- NOTE | 2017-02-02 19:20 | Progress Note ---
Medicine Progress Note Date & Time of Visit: Feb 02, 2017 at 19:20. Subjective Patient reports feeling better today, is hopeful she will get to go home after dialysis tomorrow; no overnight events noted. Tolerating PO without difficulty. No cramping. Still experiences SOB/wheezing and coughing mostly at night. No other complaints. Objective Last 8 Hrs Date Time Temp Pulse Resp B/P (MAP) Pulse Ox O2 Delivery O2 Flow Rate FiO2 02/02/17 15:13 36.6 17 132/53 (79) 94 3.0 02/02/17 12:00 Nasal Cannula 3.0 02/02/17 11:54 36.5 61 18 128/66 (86) 100 3.0 Physical Exam: GENERAL: Patient is in no acute distress. HEENT: No acute trauma, normocephalic atraumatic, mucous membranes moist, no nasal congestion, no scleral icterus. NECK: No stridor, trachea is midline. LUNGS: Diminished breath sounds bilaterally, bibasilar crackles, no wheeze, no rhonchi HEART: Without murmurs gallops or rubs, regular rate and rhythm. ABDOMEN: Soft, nontender, bowel sounds positive, no hepatosplenomegaly EXTREMITIES: No cyanosis or edema, full range of motion of all the joints without pain or difficulty, no signs for acute trauma. NEUROLOGIC: Oriented x 3, no acute motor or sensory deficits, no focal weakness. SKIN: No rash, no jaundice, no diaphoresis. Laboratory Results: Last 24 Hours Test 02/01/17 20:05 02/02/17 05:43 02/02/17 07:50 02/02/17 12:00 Bedside Glucose 326 mg/dl 130 mg/dl 146 mg/dl White Blood Count 7.30 K/uL Red Blood Count 2.67 M/uL Hemoglobin 9.4 g/dL Hematocrit 30.0 % Mean Corpuscular Volume 112.4 fL Mean Corpuscular Hemoglobin 35.2 pg Mean Corpuscular Hemoglobin Concent 31.3 g/dl Platelet Count 173 K/uL Mean Platelet Volume 9.4 fL Neutrophils (%) (Auto) 77.4 % Lymphocytes (%) (Auto) 13.8 % Monocytes (%) (Auto) 7.5 % Eosinophils (%) (Auto) 0.8 % Basophils (%) (Auto) 0.1 % Neutrophils # (Auto) 5.64 K/uL Lymphocytes # (Auto) 1.01 K/uL Monocytes # (Auto) 0.55 K/uL Eosinophils # (Auto) 0.06 K/uL Basophils # (Auto) 0.01 K/uL RDW Standard Deviation 65.2 fL RDW Coefficient of Variation 16.3 % Immature Granulocyte % (Auto) 0.4 % Immature Granulocyte # (Auto) 0.03 K/uL Macrocytosis PRESENT Prothrombin Time 16.5 SECONDS Prothromb Time International Ratio 1.5 Sodium Level 139 mmol/L Potassium Level 4.5 mmol/L Chloride Level 101 mmol/L Carbon Dioxide Level 29 mmol/L Anion Gap 10.0 mmol/L Blood Urea Nitrogen 45 mg/dl Creatinine 9.08 mg/dl Est Creatinine Clear Calc Drug Dose 7.0 ml/min Estimated GFR () 4.6 Estimated GFR (Non- 4.0 BUN/Creatinine Ratio 5.0 Random Glucose 157 mg/dl Calcium Level 8.1 mg/dl Test 02/02/17 16:29 02/02/17 16:58 Bedside Glucose 174 mg/dl Urine Color YELLOW Urine Appearance CLEAR Urine pH 7.5 Urine Specific [place] 1.017 Urine Protein 1+ Urine Glucose (UA) TRACE Urine Ketones NEG Urine Occult Blood TRACE Urine Nitrite NEG Urine Bilirubin NEG Urine Urobilinogen NEG Urine Leukocyte Esterase TRACE Urine WBC (Auto) 1-5 /hpf Urine RBC (Auto) 0-4 /hpf Urine Hyaline Casts (Auto) 1-5 /lpf Urine Epithelial Cells (Auto) >30 /lpf Urine Bacteria (Auto) NEG Assessment & Plan SHORTNESS OF BREATH: improving -CXR mentions mild cardiomegaly, trace left pleural effusion, suggested mild developing pulmonary edema pattern; hazy bibasilar consolidative opacities suggest atelectasis or pneumonia -symptoms slightly better since dialysis today, requiring oxygen at her usual baseline rate -no evidence of pneumonia/infectious etiology, no wheezing -has known COPD and reports symptoms being worse at night, possibly bronchitis CHRONIC ANEMIA: has anemia of chronic disease due to ESRD -Hb 9.4 -baseline Hb 9-10 per records ESRD on HD: -has HD every Tuesday, , Tuesday; dialysis tomorrow -Nephrology consulted -Procrit as per Nephro -strict I's and O's, daily weights -does not tolerate much fluid removal at HD which has been limiting PAROXYSMAL ATRIAL FIB: -on Coumadin, followed by coag clinic -INR subtherapeutic at 1.4 -continue b-mariana (patient normally takes this after dialysis) -rate controlled COPD: -on continuous O2; no changes, still on 2-2.5L -history of tobacco use, still smoking -continue home inhalers -does not appear to be in exacerbation -will place patient on a short trial of PO prednisone given bronchitis symptoms HTN: -continue home meds -monitor DM TYPE II: -continue Lantus + Novolog sliding scale -BSG AC and HS Current Inpatient Medications: Current Inpatient Medications Medications (Trade) Dose Ordered Sig/Joan Route Start Time Stop Time Status Last Admin Dose Admin Albuterol/ Ipratropium (Duoneb) 3 ml Q2H PRN INH 02/01/17 06:45 03/03/17 06:44 Acetaminophen (Tylenol Tab) 650 mg Q4H PRN PO 02/01/17 07:00 03/03/17 06:59 Nitroglycerin (Nitrostat Tab) 0.4 mg UD PRN SL 02/01/17 07:00 03/03/17 06:59 Insulin Aspart (novoLOG ASPART) SLIDING SCALE If C... ACHS SC 02/01/17 11:00 03/03/17 10:59 02/01/17 21:01 3 UNITS Glucose (Glucose 40% Gel) 15-30 GRAMS 15 GRAMS... UD PRN PO 02/01/17 07:00 03/03/17 06:59 Glucose (Glucose Chew Tab) 4-8 Tablets 4 Tabl... UD PRN PO 02/01/17 07:00 03/03/17 06:59 Dextrose (Dextrose 50% 50ML Syringe) 25-50ML OF 50% DW IV FOR... UD PRN IV 02/01/17 07:00 03/03/17 06:59 Glucagon (Glucagon Inj) 1 mg UD PRN SQ 02/01/17 07:00 03/03/17 06:59 Hydromorphone HCl (Dilaudid Inj) 0.5 mg Q3H PRN IV 02/01/17 07:00 02/15/17 06:59 Tramadol HCl (Ultram Tab) 25 mg Q6H PRN PO 02/01/17 07:00 03/03/17 06:59 Ondansetron HCl (Zofran Inj) 4 mg Q6H PRN IV 02/01/17 07:00 03/03/17 06:59 Amlodipine Besylate (Norvasc Tab) 10 mg QAM PO 02/01/17 09:00 03/03/17 08:59 02/02/17 08:24 10 MG Calcium Acetate (Phoslo Cap) 1,334 mg TIDM PO 02/01/17 08:00 03/03/17 07:59 02/02/17 17:11 1,334 MG Clonidine HCl (Catapres Tab) 0.1 mg BID PO 02/01/17 09:00 03/03/17 08:59 02/02/17 08:24 0.1 MG Salmeterol Xinafoate/ Fluticasone (Advair Diskus 250/50 Inh) 2 puff BID INH 02/01/17 09:00 03/03/17 08:59 02/02/17 08:24 2 PUFF Furosemide (Lasix Tab) 40 mg DAILY PO 02/02/17 09:00 03/04/17 08:59 02/02/17 08:24 40 MG Insulin Glargine (Lantus Solostar Pen) 5 units QAM SC 02/01/17 09:00 03/03/17 08:59 02/02/17 08:32 5 UNITS Losartan Potassium (coZAAR TAB) 100 mg DAILY PO 02/01/17 09:00 03/03/17 08:59 02/02/17 08:25 100 MG Prednisolone Acetate (Pred Forte 1% Oph Susp) 1 drops DAILY OPL 02/01/17 09:00 03/03/17 08:59 02/02/17 08:25 1 DROPS Valacyclovir HCl (Valtrex Tab) 1,000 mg DAILY PO 02/01/17 09:00 02/11/17 08:59 02/02/17 08:24 1,000 MG Vitamin B Complex/ Vit C/Folic Acid (Nephrocaps) 1 cap DAILY PO 02/01/17 09:00 03/03/17 08:59 02/02/17 08:24 1 CAP Miscellaneous Information (Order Awaiting Action) 1 ea QS N/A 02/01/17 08:00 03/03/17 07:59 Warfarin Sodium (Coumadin Tab) 5 mg DAILY@16 PO 02/02/17 16:00 03/04/17 15:59 02/02/17 17:12 5 MG Metoprolol Tartrate (Lopressor Tab) 25 mg BID PO 02/01/17 21:00 03/03/17 08:59 02/02/17 08:24 25 MG Guaifenesin (Mucinex Contr Rel Tab) 600 mg Q12 PO 02/02/17 21:00 03/04/17 20:59 Prednisone (PredniSONE TAB) 30 mg DAILY PO 02/03/17 09:00 03/05/17 08:59
[2017-02-02] MEDS: GUAIFENESIN 600 MG TABCR PO SCH (21:43)
[2017-02-02] MEDS ORDERED: NURSING VERBAL MED ORDER ONE (23:15)
[2017-02-02] MEDS ORDERED: FUROSEMIDE 40 MG/4 ML VIAL IV STA (23:17)
[2017-02-03] VITALS (23 sets, daily range): BP systolic 139–174; BP diastolic 64–84; PULSE 60–77; TEMP 36.3–36.9; O2SAT 92–98
[2017-02-03] MEDS ORDERED: HydrALAZINE HCL 20 MG/ML VIAL IV. ONE (01:00)
[2017-02-03 06:06] LABS: INR 1.4 (0.9-1.1); PROTHROMBIN TIME (PATIENT) 14.9 SECONDS (9.0-12.0)
[2017-02-03 06:33] LABS: BUN/CREATININE RATIO 6.6 (10-20); CALCIUM 8.2 mg/dl (8.5-10.1); CREATININE 11.3 mg/dl (0.60-1.20); POTASSIUM 5.6 mmol/L (3.5-5.1)
--- NOTE | 2017-02-03 07:16 | Nephrology Progress Note ---
Nephrology Progress Note Date of Service: Feb 03, 2017. Subjective 71 yo female with underlying copd on chronic oxygen and nebs at home presented with worsening sob. on steroids and nebulizers. still having difficulty with breathing. feels tight. Objective Date Time Temp Pulse Resp B/P (MAP) Pulse Ox O2 Delivery O2 Flow Rate FiO2 02/03/17 04:17 36.8 66 18 145/64 (91) 95 7.0 02/03/17 04:00 Oxymask 6.0 02/03/17 00:22 36.4 74 16 161/67 (98) 92 6.0 02/02/17 23:45 91 Oxymask 10.0 02/02/17 23:15 72 175/70 (105) 02/02/17 22:43 72 28 91 Mask 10.0 02/02/17 21:08 36.6 61 18 144/72 (96) 98 Nasal Cannula 3.0 02/02/17 20:00 94 Nasal Cannula 3.0 02/02/17 16:08 94 Nasal Cannula 3.0 02/02/17 15:13 36.6 17 132/53 (79) 94 3.0 02/02/17 12:00 Nasal Cannula 3.0 02/02/17 11:54 36.5 61 18 128/66 (86) 100 3.0 02/02/17 08:00 Nasal Cannula 3.0 Physical Exam: General-[id number] Eyes-no scleral icterus ENT-mmm Neck-supple Lungs-minimal air movement with basilar rales Heart-regular Abdomen-bs+ s/nt/nd Extremities-no c/c/e Neuro-nonfocal Current Inpatient Medications Medications (Trade) Dose Ordered Sig/Joan Route Start Time Stop Time Status Last Admin Dose Admin Albuterol/ Ipratropium (Duoneb) 3 ml Q2H PRN INH 02/01/17 06:45 03/03/17 06:44 02/02/17 22:41 3 ML Acetaminophen (Tylenol Tab) 650 mg Q4H PRN PO 02/01/17 07:00 03/03/17 06:59 Nitroglycerin (Nitrostat Tab) 0.4 mg UD PRN SL 02/01/17 07:00 03/03/17 06:59 Insulin Aspart (novoLOG ASPART) SLIDING SCALE If C... ACHS SC 02/01/17 11:00 03/03/17 10:59 02/01/17 21:01 3 UNITS Glucose (Glucose 40% Gel) 15-30 GRAMS 15 GRAMS... UD PRN PO 02/01/17 07:00 03/03/17 06:59 Glucose (Glucose Chew Tab) 4-8 Tablets 4 Tabl... UD PRN PO 02/01/17 07:00 03/03/17 06:59 Dextrose (Dextrose 50% 50ML Syringe) 25-50ML OF 50% DW IV FOR... UD PRN IV 02/01/17 07:00 03/03/17 06:59 Glucagon (Glucagon Inj) 1 mg UD PRN SQ 02/01/17 07:00 03/03/17 06:59 Hydromorphone HCl (Dilaudid Inj) 0.5 mg Q3H PRN IV 02/01/17 07:00 02/15/17 06:59 Tramadol HCl (Ultram Tab) 25 mg Q6H PRN PO 02/01/17 07:00 03/03/17 06:59 Ondansetron HCl (Zofran Inj) 4 mg Q6H PRN IV 02/01/17 07:00 03/03/17 06:59 Amlodipine Besylate (Norvasc Tab) 10 mg QAM PO 02/01/17 09:00 03/03/17 08:59 02/02/17 08:24 10 MG Calcium Acetate (Phoslo Cap) 1,334 mg TIDM PO 02/01/17 08:00 03/03/17 07:59 02/02/17 17:11 1,334 MG Clonidine HCl (Catapres Tab) 0.1 mg BID PO 02/01/17 09:00 03/03/17 08:59 02/02/17 21:41 0.1 MG Salmeterol Xinafoate/ Fluticasone (Advair Diskus 250/50 Inh) 2 puff BID INH 02/01/17 09:00 03/03/17 08:59 02/02/17 21:40 2 PUFF Furosemide (Lasix Tab) 40 mg DAILY PO 02/02/17 09:00 03/04/17 08:59 02/02/17 08:24 40 MG Insulin Glargine (Lantus Solostar Pen) 5 units QAM SC 02/01/17 09:00 03/03/17 08:59 02/02/17 08:32 5 UNITS Losartan Potassium (coZAAR TAB) 100 mg DAILY PO 02/01/17 09:00 03/03/17 08:59 02/02/17 08:25 100 MG Prednisolone Acetate (Pred Forte 1% Oph Susp) 1 drops DAILY OPL 02/01/17 09:00 03/03/17 08:59 02/02/17 08:25 1 DROPS Valacyclovir HCl (Valtrex Tab) 1,000 mg DAILY PO 02/01/17 09:00 02/11/17 08:59 02/02/17 08:24 1,000 MG Vitamin B Complex/ Vit C/Folic Acid (Nephrocaps) 1 cap DAILY PO 02/01/17 09:00 03/03/17 08:59 02/02/17 08:24 1 CAP Miscellaneous Information (Order Awaiting Action) 1 ea QS N/A 02/01/17 08:00 03/03/17 07:59 Warfarin Sodium (Coumadin Tab) 5 mg DAILY@16 PO 02/02/17 16:00 03/04/17 15:59 02/02/17 17:12 5 MG Metoprolol Tartrate (Lopressor Tab) 25 mg BID PO 02/01/17 21:00 03/03/17 08:59 02/02/17 21:42 25 MG Guaifenesin (Mucinex Contr Rel Tab) 600 mg Q12 PO 02/02/17 21:00 03/04/17 20:59 02/02/17 21:43 600 MG Prednisone (PredniSONE TAB) 30 mg DAILY PO 02/03/17 09:00 03/05/17 08:59 Epoetin Hakan (Procrit Inj) 10,000 units ONE ONCE IV. 02/03/17 07:15 02/03/17 07:16 UNV Albumin Human (Albumin 25%) 25 gm ONE ONCE IV 02/03/17 07:15 02/03/17 07:16 UNV Last 24 Hours Test 02/02/17 07:50 02/02/17 12:00 02/02/17 16:29 02/02/17 16:58 Bedside Glucose 130 mg/dl 146 mg/dl 174 mg/dl Urine Color YELLOW Urine Appearance CLEAR Urine pH 7.5 Urine Specific [place] 1.017 Urine Protein 1+ Urine Glucose (UA) TRACE Urine Ketones NEG Urine Occult Blood TRACE Urine Nitrite NEG Urine Bilirubin NEG Urine Urobilinogen NEG Urine Leukocyte Esterase TRACE Urine WBC (Auto) 1-5 /hpf Urine RBC (Auto) 0-4 /hpf Urine Hyaline Casts (Auto) 1-5 /lpf Urine Epithelial Cells (Auto) >30 /lpf Urine Bacteria (Auto) NEG Test 02/02/17 20:17 02/03/17 05:22 Bedside Glucose 174 mg/dl Prothrombin Time 14.9 SECONDS Prothromb Time International Ratio 1.4 Sodium Level 137 mmol/L Potassium Level 5.6 mmol/L Chloride Level 102 mmol/L Carbon Dioxide Level 26 mmol/L Anion Gap 9.0 mmol/L Blood Urea Nitrogen 75 mg/dl Creatinine 11.30 mg/dl Est Creatinine Clear Calc Drug Dose 5.6 ml/min Estimated GFR () 3.5 Estimated GFR (Non- 3.1 BUN/Creatinine Ratio 6.6 Random Glucose 235 mg/dl Calcium Level 8.2 mg/dl Assessment & Plan ESRD-for dialysis again today with albumin to help with fluid removal. was able to remove 1600 on tuesday and will see if able to remove more today. k is trending up and on a 2k bath. does have more noticeable rales today. will re- evaluate tomorrow for possibly another dialysis treatment if pt is agreeable. Anemia of renal failure-goal hg of 10 to 11 and will redose procrit. DELILAH: on binders and will follow phos levels.
[2017-02-03] MEDS ORDERED: EPOETIN ALFA 10,000 UNITS/ML VIAL IV. SCH (08:00)
[2017-02-03] MEDS: PrednisoLONE ACET 1% OP SUSP 5 ML BTL OPL SCH (08:33)
[2017-02-03] MEDS: CALCIUM ACETATE 667MG GELCAP PO SCH ×3 (08:33→17:13)
[2017-02-03] MEDS: FLUTICASONE/SALMETEROL 250/50 (ADVAIR) 14 PUFF/1 INHALER INH SCH ×2 (08:33→21:52)
[2017-02-03] MEDS: INSULIN ASPART 100 UNITS/ML 3 ML PEN SC SCH ×4 (08:35→21:57)
[2017-02-03] MEDS: INSULIN GLARGINE SOLOSTAR 100 UNITS/ML 3 ML PEN SC SCH (08:36)
[2017-02-03] MEDS: ALBUMIN HUMAN 25% 12.5 GM/50 ML VIAL IV SCH ×2 (09:30→10:30)
[2017-02-03] MEDS: AMLODIPINE BESYLATE 5 MG TAB PO SCH (13:27)
[2017-02-03] MEDS: NEPHROCAPS PO SCH (13:27)
[2017-02-03] MEDS: METOPROLOL TARTRATE 25 MG TAB PO SCH ×2 (13:27→21:51)
[2017-02-03] MEDS: FUROSEMIDE 40 MG TAB PO SCH (13:27)
[2017-02-03] MEDS: CLONIDINE HCL 0.1 MG TAB PO SCH ×2 (13:27→21:52)
[2017-02-03] MEDS: GUAIFENESIN 600 MG TABCR PO SCH ×2 (13:27→21:51)
[2017-02-03] MEDS: LOSARTAN POTASSIUM 50 MG TAB PO SCH (13:27)
[2017-02-03] MEDS: WARFARIN SOD 5 MG TAB PO SCH (17:14)
--- NOTE | 2017-02-03 19:19 | Progress Note ---
Medicine Progress Note Date & Time of Visit: Feb 03, 2017 at 19:19. Subjective Patient seen after dialysis; feels very tired and states she had alot of cramping last night and today. Also experienced SOB/desaturation last night with high BP. Still feels some chest tightness and has a nonproductive cough. No other complaints at this time. Objective Last 8 Hrs Date Time Temp Pulse Resp B/P (MAP) Pulse Ox O2 Delivery O2 Flow Rate FiO2 02/03/17 14:38 36.3 76 18 149/84 (105) 97 02/03/17 13:00 Nasal Cannula 5.0 02/03/17 12:33 36.6 65 155/69 (97) 02/03/17 12:15 66 158/65 02/03/17 12:00 64 168/74 02/03/17 11:45 65 159/71 02/03/17 11:30 68 161/71 Physical Exam: GENERAL: Patient is in no acute distress. HEENT: No acute trauma, normocephalic atraumatic, mucous membranes moist, no nasal congestion, no scleral icterus. Conjunctivae clear. NECK: No stridor, trachea is midline. LUNGS: Diminished breath sounds bilaterally, bibasilar crackles, no wheeze, no rhonchi HEART: Without murmurs gallops or rubs, regular rate and rhythm. ABDOMEN: Soft, nontender, bowel sounds positive, no hepatosplenomegaly EXTREMITIES: No cyanosis or edema, full range of motion of all the joints without pain or difficulty, no signs for acute trauma. NEUROLOGIC: Oriented x 3, no acute motor or sensory deficits, no focal weakness. SKIN: No rash, no jaundice, no diaphoresis. Laboratory Results: Last 24 Hours Test 02/02/17 20:17 02/03/17 05:22 02/03/17 07:31 02/03/17 13:22 Bedside Glucose 174 mg/dl 170 mg/dl 117 mg/dl Prothrombin Time 14.9 SECONDS Prothromb Time International Ratio 1.4 Sodium Level 137 mmol/L Potassium Level 5.6 mmol/L Chloride Level 102 mmol/L Carbon Dioxide Level 26 mmol/L Anion Gap 9.0 mmol/L Blood Urea Nitrogen 75 mg/dl Creatinine 11.30 mg/dl Est Creatinine Clear Calc Drug Dose 5.6 ml/min Estimated GFR () 3.5 Estimated GFR (Non- 3.1 BUN/Creatinine Ratio 6.6 Random Glucose 235 mg/dl Calcium Level 8.2 mg/dl Test 02/03/17 16:21 Bedside Glucose 269 mg/dl Assessment & Plan SHORTNESS OF BREATH: -CXR mentions mild cardiomegaly, trace left pleural effusion, suggested mild developing pulmonary edema pattern; hazy bibasilar consolidative opacities suggest atelectasis or pneumonia -symptoms worsened last night, not significantly improved despite dialysis today and starting on steroids -oxygen requirements higher than baseline rate -no evidence of pneumonia/infectious etiology, no wheezing -has known COPD and reports symptoms being worse at night, possibly bronchitis, started on a short course of steroids and duonebs, no indication for abx CHRONIC ANEMIA: has anemia of chronic disease due to ESRD -Hb 9.4 -baseline Hb 9-10 per records ESRD on HD: -has HD every Tuesday, , Tuesday -Nephrology consulted -Procrit as per Nephro -strict I's and O's, daily weights -does not tolerate much fluid removal at HD which has been limiting PAROXYSMAL ATRIAL FIB: -on Coumadin, followed by coag clinic -INR subtherapeutic at 1.4 -continue b-mariana (patient normally takes this after dialysis) -rate controlled COPD: -on continuous O2; no changes, still on 2-2.5L -history of tobacco use, still smoking -continue home inhalers -does not appear to be in exacerbation HTN: -continue home meds -monitor DM TYPE II: -continue Lantus + Novolog sliding scale -BSG AC and HS Current Inpatient Medications: Current Inpatient Medications Medications (Trade) Dose Ordered Sig/Joan Route Start Time Stop Time Status Last Admin Dose Admin Albuterol/ Ipratropium (Duoneb) 3 ml Q2H PRN INH 02/01/17 06:45 03/03/17 06:44 02/02/17 22:41 3 ML Acetaminophen (Tylenol Tab) 650 mg Q4H PRN PO 02/01/17 07:00 03/03/17 06:59 Nitroglycerin (Nitrostat Tab) 0.4 mg UD PRN SL 02/01/17 07:00 03/03/17 06:59 Insulin Aspart (novoLOG ASPART) SLIDING SCALE If C... ACHS SC 02/01/17 11:00 03/03/17 10:59 02/03/17 17:20 2 UNITS Glucose (Glucose 40% Gel) 15-30 GRAMS 15 GRAMS... UD PRN PO 02/01/17 07:00 03/03/17 06:59 Glucose (Glucose Chew Tab) 4-8 Tablets 4 Tabl... UD PRN PO 02/01/17 07:00 03/03/17 06:59 Dextrose (Dextrose 50% 50ML Syringe) 25-50ML OF 50% DW IV FOR... UD PRN IV 02/01/17 07:00 03/03/17 06:59 Glucagon (Glucagon Inj) 1 mg UD PRN SQ 02/01/17 07:00 03/03/17 06:59 Hydromorphone HCl (Dilaudid Inj) 0.5 mg Q3H PRN IV 02/01/17 07:00 02/15/17 06:59 Tramadol HCl (Ultram Tab) 25 mg Q6H PRN PO 02/01/17 07:00 03/03/17 06:59 Ondansetron HCl (Zofran Inj) 4 mg Q6H PRN IV 02/01/17 07:00 03/03/17 06:59 Amlodipine Besylate (Norvasc Tab) 10 mg QAM PO 02/01/17 09:00 03/03/17 08:59 02/03/17 13:27 10 MG Calcium Acetate (Phoslo Cap) 1,334 mg TIDM PO 02/01/17 08:00 03/03/17 07:59 02/03/17 17:13 1,334 MG Clonidine HCl (Catapres Tab) 0.1 mg BID PO 02/01/17 09:00 03/03/17 08:59 02/03/17 13:27 0.1 MG Salmeterol Xinafoate/ Fluticasone (Advair Diskus 250/50 Inh) 2 puff BID INH 02/01/17 09:00 03/03/17 08:59 02/03/17 08:33 2 PUFF Furosemide (Lasix Tab) 40 mg DAILY PO 02/02/17 09:00 03/04/17 08:59 02/03/17 13:27 40 MG Insulin Glargine (Lantus Solostar Pen) 5 units QAM SC 02/01/17 09:00 03/03/17 08:59 02/03/17 08:36 5 UNITS Losartan Potassium (coZAAR TAB) 100 mg DAILY PO 02/01/17 09:00 03/03/17 08:59 02/03/17 13:27 100 MG Prednisolone Acetate (Pred Forte 1% Oph Susp) 1 drops DAILY OPL 02/01/17 09:00 03/03/17 08:59 02/03/17 08:33 1 DROPS Valacyclovir HCl (Valtrex Tab) 1,000 mg DAILY PO 02/01/17 09:00 02/11/17 08:59 02/03/17 13:28 1,000 MG Vitamin B Complex/ Vit C/Folic Acid (Nephrocaps) 1 cap DAILY PO 02/01/17 09:00 03/03/17 08:59 02/03/17 13:27 1 CAP Miscellaneous Information (Order Awaiting Action) 1 ea QS N/A 02/01/17 08:00 03/03/17 07:59 Warfarin Sodium (Coumadin Tab) 5 mg DAILY@16 PO 02/02/17 16:00 03/04/17 15:59 02/03/17 17:14 5 MG Metoprolol Tartrate (Lopressor Tab) 25 mg BID PO 02/01/17 21:00 03/03/17 08:59 02/03/17 13:27 25 MG Guaifenesin (Mucinex Contr Rel Tab) 600 mg Q12 PO 02/02/17 21:00 03/04/17 20:59 02/03/17 13:27 600 MG Prednisone (PredniSONE TAB) 30 mg DAILY PO 02/03/17 09:00 03/05/17 08:59 02/03/17 13:27 30 MG Epoetin Hakan (Procrit Inj) 10,000 units TODAY@0800 IV. 02/03/17 08:00 02/03/17 20:00 02/03/17 11:33 10,000 UNITS Albumin Human (Albumin 25%) 12.5 gm TODAY@0800,0900 IV 02/03/17 08:00 02/03/17 20:00
[2017-02-03] MEDS ORDERED: NURSING VERBAL MED ORDER ONE (22:45)
[2017-02-03] MEDS ORDERED: INSULIN ASPART 100 UNITS/ML 3 ML PEN SC STA (22:49)
[2017-02-04] VITALS (8 sets, daily range): BP systolic 138–166; BP diastolic 69–76; PULSE 56–66; TEMP 36.4–36.7; O2SAT 94–100; Ht 167.6 cm; Wt 102.1 kg
[2017-02-04 06:38] LABS: INR 1.3 (0.9-1.1); PROTHROMBIN TIME (PATIENT) 14.5 SECONDS (9.0-12.0)
[2017-02-04 07:17] LABS: BUN/CREATININE RATIO 6.2 (10-20); CALCIUM 7.8 mg/dl (8.5-10.1); CREATININE 8.45 mg/dl (0.60-1.20); POTASSIUM 4.5 mmol/L (3.5-5.1)
[2017-02-04] MEDS: INSULIN ASPART 100 UNITS/ML 3 ML PEN SC SCH ×4 (08:07→21:00)
[2017-02-04] MEDS: CALCIUM ACETATE 667MG GELCAP PO SCH ×3 (08:35→17:56)
[2017-02-04] MEDS: CLONIDINE HCL 0.1 MG TAB PO SCH ×2 (08:35→20:52)
[2017-02-04] MEDS: FUROSEMIDE 40 MG TAB PO SCH (08:36)
[2017-02-04] MEDS: AMLODIPINE BESYLATE 5 MG TAB PO SCH (08:36)
[2017-02-04] MEDS: METOPROLOL TARTRATE 25 MG TAB PO SCH ×2 (08:37→20:52)
[2017-02-04] MEDS: NEPHROCAPS PO SCH (08:37)
[2017-02-04] MEDS: FLUTICASONE/SALMETEROL 250/50 (ADVAIR) 14 PUFF/1 INHALER INH SCH ×2 (08:38→20:51)
[2017-02-04] MEDS: LOSARTAN POTASSIUM 50 MG TAB PO SCH (08:38)
[2017-02-04] MEDS: GUAIFENESIN 600 MG TABCR PO SCH ×2 (08:38→20:52)
[2017-02-04] MEDS: PrednisoLONE ACET 1% OP SUSP 5 ML BTL OPL SCH (08:39)
[2017-02-04] MEDS: INSULIN GLARGINE SOLOSTAR 100 UNITS/ML 3 ML PEN SC SCH (08:44)
[2017-02-04] MEDS ORDERED: NURSING VERBAL MED ORDER ONE (17:45)
[2017-02-04] MEDS: WARFARIN SOD 5 MG TAB PO SCH (17:57)
[2017-02-04] MEDS ORDERED: INSULIN ASPART 100 UNITS/ML 3 ML PEN SC ONE (18:00)
--- NOTE | 2017-02-04 19:03 | Progress Note ---
Medicine Progress Note Date & Time of Visit: Feb 04, 2017 at 19:03. Subjective Patient reports feeling better overall, states she feels her chest tightness loosening up. No other complaints. Denies any overnight events other than BP elevation. Has been ambulating without difficulty. Tolerating PO. Minimal cramping today. Objective Last 8 Hrs Date Time Temp Pulse Resp B/P (MAP) Pulse Ox O2 Delivery O2 Flow Rate FiO2 02/04/17 12:43 36.4 61 18 145/ (48) 98 02/04/17 12:00 Nasal Cannula 5.0 Physical Exam: GENERAL: Patient is in no acute distress. HEENT: No acute trauma, normocephalic atraumatic, mucous membranes moist, no nasal congestion, no scleral icterus. Conjunctivae clear. NECK: No stridor, trachea is midline. LUNGS: Diminished breath sounds bilaterally, bibasilar crackles, no wheeze, no rhonchi HEART: Without murmurs gallops or rubs, regular rate and rhythm. ABDOMEN: Soft, nontender, bowel sounds positive, no hepatosplenomegaly EXTREMITIES: No cyanosis or edema, full range of motion of all the joints without pain or difficulty, no signs for acute trauma. NEUROLOGIC: Oriented x 3, no acute motor or sensory deficits, no focal weakness. SKIN: No rash, no jaundice, no diaphoresis. Laboratory Results: Last 24 Hours Test 02/03/17 20:35 02/04/17 06:12 02/04/17 07:38 02/04/17 11:46 Bedside Glucose 310 mg/dl 150 mg/dl 179 mg/dl Prothrombin Time 14.5 SECONDS Prothromb Time International Ratio 1.3 Sodium Level 137 mmol/L Potassium Level 4.5 mmol/L Chloride Level 101 mmol/L Carbon Dioxide Level 27 mmol/L Anion Gap 9.0 mmol/L Blood Urea Nitrogen 54 mg/dl Creatinine 8.45 mg/dl Est Creatinine Clear Calc Drug Dose 7.5 ml/min Estimated GFR () 5.0 Estimated GFR (Non- 4.4 BUN/Creatinine Ratio 6.2 Random Glucose 161 mg/dl Calcium Level 7.8 mg/dl Test 02/04/17 16:48 Bedside Glucose 314 mg/dl Assessment & Plan SHORTNESS OF BREATH: -CXR mentions mild cardiomegaly, trace left pleural effusion, suggested mild developing pulmonary edema pattern; hazy bibasilar consolidative opacities suggest atelectasis or pneumonia -symptoms worsened last night, not significantly improved despite dialysis today and starting on steroids -oxygen requirements higher than baseline rate -no evidence of pneumonia/infectious etiology, no wheezing -has known COPD and reports symptoms being worse at night, possibly bronchitis, started on a short course of steroids (5 days total) and duonebs, no indication for abx -last TTE (October) shows preserved EF 70%, moderate to severe MR CHRONIC ANEMIA: has anemia of chronic disease due to ESRD -Hb 9.4 -baseline Hb 9-10 per records ESRD on HD: -has HD every Tuesday, , Tuesday -Nephrology consulted -Procrit as per Nephro -strict I's and O's, daily weights -does not tolerate much fluid removal at HD which has been limiting PAROXYSMAL ATRIAL FIB: -on Coumadin, followed by coag clinic -INR subtherapeutic at 1.3 -continue b-mariana (patient normally takes this after dialysis) -rate controlled COPD: -on continuous O2; has been requiring more oxygen (5-6L) -history of tobacco use, still smoking -continue home inhalers -continue duonebs scheduled and PRN HTN: -continue home meds -monitor DM TYPE II: -continue Lantus + Novolog sliding scale -BSG AC and HS Current Inpatient Medications: Current Inpatient Medications Medications (Trade) Dose Ordered Sig/Joan Route Start Time Stop Time Status Last Admin Dose Admin Albuterol/ Ipratropium (Duoneb) 3 ml Q2H PRN INH 02/01/17 06:45 03/03/17 06:44 02/02/17 22:41 3 ML Acetaminophen (Tylenol Tab) 650 mg Q4H PRN PO 02/01/17 07:00 03/03/17 06:59 Nitroglycerin (Nitrostat Tab) 0.4 mg UD PRN SL 02/01/17 07:00 03/03/17 06:59 Insulin Aspart (novoLOG ASPART) SLIDING SCALE If C... ACHS SC 02/01/17 11:00 03/03/17 10:59 02/03/17 21:57 3 UNITS Glucose (Glucose 40% Gel) 15-30 GRAMS 15 GRAMS... UD PRN PO 02/01/17 07:00 03/03/17 06:59 Glucose (Glucose Chew Tab) 4-8 Tablets 4 Tabl... UD PRN PO 02/01/17 07:00 03/03/17 06:59 Dextrose (Dextrose 50% 50ML Syringe) 25-50ML OF 50% DW IV FOR... UD PRN IV 02/01/17 07:00 03/03/17 06:59 Glucagon (Glucagon Inj) 1 mg UD PRN SQ 02/01/17 07:00 03/03/17 06:59 Hydromorphone HCl (Dilaudid Inj) 0.5 mg Q3H PRN IV 02/01/17 07:00 02/15/17 06:59 Tramadol HCl (Ultram Tab) 25 mg Q6H PRN PO 02/01/17 07:00 03/03/17 06:59 Ondansetron HCl (Zofran Inj) 4 mg Q6H PRN IV 02/01/17 07:00 03/03/17 06:59 Amlodipine Besylate (Norvasc Tab) 10 mg QAM PO 02/01/17 09:00 03/03/17 08:59 02/04/17 08:36 10 MG Calcium Acetate (Phoslo Cap) 1,334 mg TIDM PO 02/01/17 08:00 03/03/17 07:59 02/04/17 17:56 1,334 MG Clonidine HCl (Catapres Tab) 0.1 mg BID PO 02/01/17 09:00 03/03/17 08:59 02/04/17 08:35 0.1 MG Salmeterol Xinafoate/ Fluticasone (Advair Diskus 250/50 Inh) 2 puff BID INH 02/01/17 09:00 03/03/17 08:59 02/04/17 08:38 2 PUFF Furosemide (Lasix Tab) 40 mg DAILY PO 02/02/17 09:00 03/04/17 08:59 02/04/17 08:36 40 MG Insulin Glargine (Lantus Solostar Pen) 5 units QAM SC 02/01/17 09:00 03/03/17 08:59 02/04/17 08:44 5 UNITS Losartan Potassium (coZAAR TAB) 100 mg DAILY PO 02/01/17 09:00 12/7/17 08:59 02/04/17 08:38 100 MG Prednisolone Acetate (Pred Forte 1% Oph Susp) 1 drops DAILY OPL 02/01/17 09:00 03/03/17 08:59 02/04/17 08:39 1 DROPS Valacyclovir HCl (Valtrex Tab) 1,000 mg DAILY PO 02/01/17 09:00 02/11/17 08:59 02/04/17 08:34 1,000 MG Vitamin B Complex/ Vit C/Folic Acid (Nephrocaps) 1 cap DAILY PO 02/01/17 09:00 03/03/17 08:59 02/04/17 08:37 1 CAP Miscellaneous Information (Order Awaiting Action) 1 ea QS N/A 02/01/17 08:00 03/03/17 07:59 Warfarin Sodium (Coumadin Tab) 5 mg DAILY@16 PO 02/02/17 16:00 03/04/17 15:59 02/04/17 17:57 5 MG Metoprolol Tartrate (Lopressor Tab) 25 mg BID PO 02/01/17 21:00 03/03/17 08:59 02/03/17 21:51 25 MG Guaifenesin (Mucinex Contr Rel Tab) 600 mg Q12 PO 02/02/17 21:00 03/04/17 20:59 02/04/17 08:38 600 MG Prednisone (PredniSONE TAB) 30 mg DAILY PO 02/03/17 09:00 03/05/17 08:59 02/04/17 08:35 30 MG
[2017-02-05] VITALS (24 sets, daily range): BP systolic 139–190; BP diastolic 66–80; PULSE 55–75; TEMP 36.5–37.2; O2SAT 94–97
[2017-02-05 06:35] LABS: BASO % 0.3 %; BASO ABS # 0.02 K/uL (0-0.2); COMPLETE YES; EOS % 0.8 %; IG% 0.8 %; LYMPH % 13.8 %; MEAN CELL VOLUME 109.4 fL (80-100); MEAN CORPUSCULAR HEMOGLOBIN 35.2 pg (25-34); MEAN CORPUSCULAR HGB CONC 32.1 g/dl (32-36); MEAN PLATELET VOLUME 10.4 fL (7.4-10.4); MONO % 5.9 %; NEUT % 78.4 %; PLATELET COUNT 143 K/uL (130-400); RED BLOOD COUNT 2.56 M/uL (4.2-5.4); WHITE BLOOD COUNT 7.25 K/uL (4.8-10.8)
[2017-02-05 06:42] LABS: INR 1.4 (0.9-1.1)
[2017-02-05 07:08] LABS: BUN/CREATININE RATIO 7.2 (10-20); CALCIUM 7.8 mg/dl (8.5-10.1); CREATININE 10.6 mg/dl (0.60-1.20); POTASSIUM 4.4 mmol/L (3.5-5.1)
--- NOTE | 2017-02-05 07:58 | Nephrology Progress Note ---
Nephrology Progress Note Date of Service: Feb 05, 2017. Subjective 71 yo female with underlying copd on chronic oxygen and nebs at home presented with worsening sob. starting to breath better. not as tight. still not coughing it up but overall more comfortable. Objective Date Time Temp Pulse Resp B/P (MAP) Pulse Ox O2 Delivery O2 Flow Rate FiO2 02/05/17 04:00 Nasal Cannula 5.0 02/05/17 03:58 36.7 59 20 150/73 (98) 96 Nasal Cannula 5.0 02/05/17 00:00 Nasal Cannula 5.0 02/04/17 22:56 36.4 62 18 166/69 (101) 98 02/04/17 20:08 94 Nasal Cannula 5.0 02/04/17 19:26 36.5 66 18 155/76 (102) 99 Nasal Cannula 5.0 02/04/17 16:10 36.6 66 18 158/70 (99) 100 Room Air 5.0 02/04/17 16:00 94 Nasal Cannula 5.0 02/04/17 12:43 36.4 61 18 145/ (48) 98 02/04/17 12:00 Nasal Cannula 5.0 02/04/17 08:00 Nasal Cannula 5.0 Physical Exam: General-aaox3 Eyes-no scleral icterus ENT-mmm Neck-supple Lungs-no rales, better air movement Heart-rrr Abdomen-bs+ s/nt/nd Extremities-no c/c/e Neuro-nonfocal Current Inpatient Medications Medications (Trade) Dose Ordered Sig/Joan Route Start Time Stop Time Status Last Admin Dose Admin Albuterol/ Ipratropium (Duoneb) 3 ml Q2H PRN INH 02/01/17 06:45 03/03/17 06:44 02/02/17 22:41 3 ML Acetaminophen (Tylenol Tab) 650 mg Q4H PRN PO 02/01/17 07:00 03/03/17 06:59 Nitroglycerin (Nitrostat Tab) 0.4 mg UD PRN SL 02/01/17 07:00 03/03/17 06:59 Insulin Aspart (novoLOG ASPART) SLIDING SCALE If C... ACHS SC 02/01/17 11:00 03/03/17 10:59 02/04/17 21:00 2 UNITS Glucose (Glucose 40% Gel) 15-30 GRAMS 15 GRAMS... UD PRN PO 02/01/17 07:00 03/03/17 06:59 Glucose (Glucose Chew Tab) 4-8 Tablets 4 Tabl... UD PRN PO 02/01/17 07:00 03/03/17 06:59 Dextrose (Dextrose 50% 50ML Syringe) 25-50ML OF 50% DW IV FOR... UD PRN IV 02/01/17 07:00 03/03/17 06:59 Glucagon (Glucagon Inj) 1 mg UD PRN SQ 02/01/17 07:00 03/03/17 06:59 Hydromorphone HCl (Dilaudid Inj) 0.5 mg Q3H PRN IV 02/01/17 07:00 02/15/17 06:59 Tramadol HCl (Ultram Tab) 25 mg Q6H PRN PO 02/01/17 07:00 03/03/17 06:59 Ondansetron HCl (Zofran Inj) 4 mg Q6H PRN IV 02/01/17 07:00 03/03/17 06:59 Amlodipine Besylate (Norvasc Tab) 10 mg QAM PO 02/01/17 09:00 03/03/17 08:59 02/04/17 08:36 10 MG Calcium Acetate (Phoslo Cap) 1,334 mg TIDM PO 02/01/17 08:00 03/03/17 07:59 02/04/17 17:56 1,334 MG Clonidine HCl (Catapres Tab) 0.1 mg BID PO 02/01/17 09:00 03/03/17 08:59 02/04/17 20:52 0.1 MG Salmeterol Xinafoate/ Fluticasone (Advair Diskus 250/50 Inh) 2 puff BID INH 02/01/17 09:00 03/03/17 08:59 02/04/17 20:51 2 PUFF Furosemide (Lasix Tab) 40 mg DAILY PO 02/02/17 09:00 03/04/17 08:59 02/04/17 08:36 40 MG Losartan Potassium (coZAAR TAB) 100 mg DAILY PO 02/01/17 09:00 03/03/17 08:59 02/04/17 08:38 100 MG Prednisolone Acetate (Pred Forte 1% Oph Susp) 1 drops DAILY OPL 02/01/17 09:00 03/03/17 08:59 02/04/17 08:39 1 DROPS Valacyclovir HCl (Valtrex Tab) 1,000 mg DAILY PO 02/01/17 09:00 02/11/17 08:59 02/04/17 08:34 1,000 MG Vitamin B Complex/ Vit C/Folic Acid (Nephrocaps) 1 cap DAILY PO 02/01/17 09:00 03/03/17 08:59 02/04/17 08:37 1 CAP Miscellaneous Information (Order Awaiting Action) 1 ea QS N/A 02/01/17 08:00 03/03/17 07:59 Warfarin Sodium (Coumadin Tab) 5 mg DAILY@16 PO 02/02/17 16:00 03/04/17 15:59 02/04/17 17:57 5 MG Metoprolol Tartrate (Lopressor Tab) 25 mg BID PO 02/01/17 21:00 03/03/17 08:59 02/04/17 20:52 25 MG Guaifenesin (Mucinex Contr Rel Tab) 600 mg Q12 PO 02/02/17 21:00 03/04/17 20:59 02/04/17 20:52 600 MG Prednisone (PredniSONE TAB) 30 mg DAILY PO 02/03/17 09:00 03/05/17 08:59 02/04/17 08:35 30 MG Insulin Glargine (Lantus Solostar Pen) 10 units QAM SC 02/05/17 09:00 03/03/17 08:59 Last 24 Hours Test 02/04/17 11:46 02/04/17 16:48 02/04/17 20:26 02/05/17 06:02 Bedside Glucose 179 mg/dl 314 mg/dl 280 mg/dl White Blood Count 7.25 K/uL Red Blood Count 2.56 M/uL Hemoglobin 9.0 g/dL Hematocrit 28.0 % Mean Corpuscular Volume 109.4 fL Mean Corpuscular Hemoglobin 35.2 pg Mean Corpuscular Hemoglobin Concent 32.1 g/dl Platelet Count 143 K/uL Mean Platelet Volume 10.4 fL Neutrophils (%) (Auto) 78.4 % Lymphocytes (%) (Auto) 13.8 % Monocytes (%) (Auto) 5.9 % Eosinophils (%) (Auto) 0.8 % Basophils (%) (Auto) 0.3 % Neutrophils # (Auto) 5.68 K/uL Lymphocytes # (Auto) 1.00 K/uL Monocytes # (Auto) 0.43 K/uL Eosinophils # (Auto) 0.06 K/uL Basophils # (Auto) 0.02 K/uL RDW Standard Deviation 62.9 fL RDW Coefficient of Variation 16.1 % Immature Granulocyte % (Auto) 0.8 % Immature Granulocyte # (Auto) 0.06 K/uL Prothrombin Time 15.0 SECONDS Prothromb Time International Ratio 1.4 Sodium Level 137 mmol/L Potassium Level 4.4 mmol/L Chloride Level 99 mmol/L Carbon Dioxide Level 25 mmol/L Anion Gap 13.0 mmol/L Blood Urea Nitrogen 77 mg/dl Creatinine 10.60 mg/dl Est Creatinine Clear Calc Drug Dose 5.9 ml/min Estimated GFR () 3.8 Estimated GFR (Non- 3.3 BUN/Creatinine Ratio 7.2 Random Glucose 146 mg/dl Calcium Level 7.8 mg/dl Test 02/05/17 07:32 Bedside Glucose 142 mg/dl Assessment & Plan ESRD-for dialysis today with albumin to help with fluid removal. removed 1600 and then 1300. will go for one to two liters off today. Anemia of renal failure-goal hg of 10 to 11 and will redose procrit again today. Defer to primary hospitalist as to whether to go home today or not. appears to be clinically improving.
[2017-02-05] MEDS: CALCIUM ACETATE 667MG GELCAP PO SCH ×3 (08:15→18:20)
[2017-02-05] MEDS: NEPHROCAPS PO SCH (08:15)
[2017-02-05] MEDS: PrednisoLONE ACET 1% OP SUSP 5 ML BTL OPL SCH (08:17)
[2017-02-05] MEDS: FLUTICASONE/SALMETEROL 250/50 (ADVAIR) 14 PUFF/1 INHALER INH SCH ×2 (08:17→21:02)
[2017-02-05] MEDS: INSULIN ASPART 100 UNITS/ML 3 ML PEN SC SCH ×4 (08:19→21:09)
[2017-02-05] MEDS: INSULIN GLARGINE SOLOSTAR 100 UNITS/ML 3 ML PEN SC SCH (08:20)
[2017-02-05] MEDS ORDERED: EPOETIN ALFA 10,000 UNITS/ML VIAL IV. SCH (11:00)
[2017-02-05] MEDS: GUAIFENESIN 600 MG TABCR PO SCH ×2 (12:20→21:03)
[2017-02-05] MEDS: ALBUMIN HUMAN 25% 12.5 GM/50 ML VIAL IV SCH ×2 (14:00→15:00)
--- NOTE | 2017-02-05 18:05 | Progress Note ---
Medicine Progress Note Date & Time of Visit: Feb 05, 2017 at 18:05. Subjective Patient doing ok, states she started having cramping again at dialysis which was limiting. No overnight events noted. States her breathing is better. No other complaints at this time. Objective Last 8 Hrs Date Time Temp Pulse Resp B/P (MAP) Pulse Ox O2 Delivery O2 Flow Rate FiO2 02/05/17 17:36 36.5 63 168/78 (108) 02/05/17 16:45 60 159/74 02/05/17 16:30 59 154/67 02/05/17 16:15 58 144/67 02/05/17 16:00 58 144/67 02/05/17 15:45 60 160/80 02/05/17 15:30 57 159/72 02/05/17 15:15 58 156/77 02/05/17 15:00 58 149/68 02/05/17 14:45 55 139/68 02/05/17 14:30 56 142/74 02/05/17 14:15 65 149/70 02/05/17 14:02 57 153/73 02/05/17 13:50 36.5 62 146/77 (100) 02/05/17 12:00 94 Nasal Cannula 2.5 02/05/17 11:38 36.6 66 16 150/71 (97) 97 Nasal Cannula 4.0 Physical Exam: GENERAL: Patient is in no acute distress. HEENT: No acute trauma, normocephalic atraumatic, mucous membranes moist, no nasal congestion, no scleral icterus. Conjunctivae clear. NECK: No stridor, trachea is midline. LUNGS: Diminished breath sounds bilaterally, bibasilar crackles, no wheeze, no rhonchi HEART: Without murmurs gallops or rubs, regular rate and rhythm. ABDOMEN: Soft, nontender, bowel sounds positive, no hepatosplenomegaly EXTREMITIES: No cyanosis or edema, full range of motion of all the joints without pain or difficulty, no signs for acute trauma. NEUROLOGIC: Oriented x 3, no acute motor or sensory deficits, no focal weakness. SKIN: No rash, no jaundice, no diaphoresis. Laboratory Results: Last 24 Hours Test 02/04/17 20:26 02/05/17 06:02 02/05/17 07:32 02/05/17 11:51 Bedside Glucose 280 mg/dl 142 mg/dl 148 mg/dl White Blood Count 7.25 K/uL Red Blood Count 2.56 M/uL Hemoglobin 9.0 g/dL Hematocrit 28.0 % Mean Corpuscular Volume 109.4 fL Mean Corpuscular Hemoglobin 35.2 pg Mean Corpuscular Hemoglobin Concent 32.1 g/dl Platelet Count 143 K/uL Mean Platelet Volume 10.4 fL Neutrophils (%) (Auto) 78.4 % Lymphocytes (%) (Auto) 13.8 % Monocytes (%) (Auto) 5.9 % Eosinophils (%) (Auto) 0.8 % Basophils (%) (Auto) 0.3 % Neutrophils # (Auto) 5.68 K/uL Lymphocytes # (Auto) 1.00 K/uL Monocytes # (Auto) 0.43 K/uL Eosinophils # (Auto) 0.06 K/uL Basophils # (Auto) 0.02 K/uL RDW Standard Deviation 62.9 fL RDW Coefficient of Variation 16.1 % Immature Granulocyte % (Auto) 0.8 % Immature Granulocyte # (Auto) 0.06 K/uL Prothrombin Time 15.0 SECONDS Prothromb Time International Ratio 1.4 Sodium Level 137 mmol/L Potassium Level 4.4 mmol/L Chloride Level 99 mmol/L Carbon Dioxide Level 25 mmol/L Anion Gap 13.0 mmol/L Blood Urea Nitrogen 77 mg/dl Creatinine 10.60 mg/dl Est Creatinine Clear Calc Drug Dose 5.9 ml/min Estimated GFR () 3.8 Estimated GFR (Non- 3.3 BUN/Creatinine Ratio 7.2 Random Glucose 146 mg/dl Calcium Level 7.8 mg/dl Test 02/05/17 17:47 Bedside Glucose 157 mg/dl Assessment & Plan SHORTNESS OF BREATH: -CXR mentions mild cardiomegaly, trace left pleural effusion, suggested mild developing pulmonary edema pattern; hazy bibasilar consolidative opacities suggest atelectasis or pneumonia -symptoms gradually improving, remains on steroids and dialysis as scheduled -oxygen requirements higher than baseline rate, weaning as tolerated -no evidence of pneumonia/infectious etiology, no wheezing -has known COPD and reports symptoms being worse at night, possibly bronchitis, started on a short course of steroids (5 days total) and duonebs, no indication for abx -last TTE (October) shows preserved EF 70%, moderate to severe MR CHRONIC ANEMIA: has anemia of chronic disease due to ESRD -Hb 9.0 -baseline Hb 9-10 per records ESRD on HD: -has HD every Tuesday, , Tuesday -Nephrology consulted -Procrit as per Nephro -strict I's and O's, daily weights -does not tolerate much fluid removal at HD which has been limiting PAROXYSMAL ATRIAL FIB: -on Coumadin, followed by coag clinic -INR subtherapeutic at 1.3-1.4 -continue b-mariana (patient normally takes this after dialysis) -rate controlled COPD: -on continuous O2; has been requiring more oxygen (5-6L) -history of tobacco use, still smoking -continue home inhalers -continue duonebs HTN: -continue home meds -monitor DM TYPE II: -continue Lantus + Novolog sliding scale -BSG AC and HS Current Inpatient Medications: Current Inpatient Medications Medications (Trade) Dose Ordered Sig/Joan Route Start Time Stop Time Status Last Admin Dose Admin Albuterol/ Ipratropium (Duoneb) 3 ml Q2H PRN INH 02/01/17 06:45 03/03/17 06:44 02/02/17 22:41 3 ML Acetaminophen (Tylenol Tab) 650 mg Q4H PRN PO 02/01/17 07:00 03/03/17 06:59 Nitroglycerin (Nitrostat Tab) 0.4 mg UD PRN SL 02/01/17 07:00 03/03/17 06:59 Insulin Aspart (novoLOG ASPART) SLIDING SCALE If C... ACHS SC 02/01/17 11:00 03/03/17 10:59 02/05/17 12:23 4 UNITS Glucose (Glucose 40% Gel) 15-30 GRAMS 15 GRAMS... UD PRN PO 02/01/17 07:00 03/03/17 06:59 Glucose (Glucose Chew Tab) 4-8 Tablets 4 Tabl... UD PRN PO 02/01/17 07:00 03/03/17 06:59 Dextrose (Dextrose 50% 50ML Syringe) 25-50ML OF 50% DW IV FOR... UD PRN IV 02/01/17 07:00 03/03/17 06:59 Glucagon (Glucagon Inj) 1 mg UD PRN SQ 02/01/17 07:00 03/03/17 06:59 Hydromorphone HCl (Dilaudid Inj) 0.5 mg Q3H PRN IV 02/01/17 07:00 02/15/17 06:59 Tramadol HCl (Ultram Tab) 25 mg Q6H PRN PO 02/01/17 07:00 03/03/17 06:59 Ondansetron HCl (Zofran Inj) 4 mg Q6H PRN IV 02/01/17 07:00 03/03/17 06:59 Amlodipine Besylate (Norvasc Tab) 10 mg QAM PO 02/01/17 09:00 03/03/17 08:59 02/04/17 08:36 10 MG Calcium Acetate (Phoslo Cap) 1,334 mg TIDM PO 02/01/17 08:00 03/03/17 07:59 02/05/17 12:18 1,334 MG Clonidine HCl (Catapres Tab) 0.1 mg BID PO 02/01/17 09:00 03/03/17 08:59 02/04/17 20:52 0.1 MG Salmeterol Xinafoate/ Fluticasone (Advair Diskus 250/50 Inh) 2 puff BID INH 02/01/17 09:00 03/03/17 08:59 02/05/17 08:17 2 PUFF Furosemide (Lasix Tab) 40 mg DAILY PO 02/02/17 09:00 03/04/17 08:59 02/04/17 08:36 40 MG Losartan Potassium (coZAAR TAB) 100 mg DAILY PO 02/01/17 09:00 03/03/17 08:59 02/04/17 08:38 100 MG Prednisolone Acetate (Pred Forte 1% Oph Susp) 1 drops DAILY OPL 02/01/17 09:00 03/03/17 08:59 02/05/17 08:17 1 DROPS Valacyclovir HCl (Valtrex Tab) 1,000 mg DAILY PO 02/01/17 09:00 02/11/17 08:59 02/05/17 12:19 1,000 MG Vitamin B Complex/ Vit C/Folic Acid (Nephrocaps) 1 cap DAILY PO 02/01/17 09:00 03/03/17 08:59 02/05/17 08:15 1 CAP Miscellaneous Information (Order Awaiting Action) 1 ea QS N/A 02/01/17 08:00 03/03/17 07:59 Warfarin Sodium (Coumadin Tab) 5 mg DAILY@16 PO 02/02/17 16:00 03/04/17 15:59 02/04/17 17:57 5 MG Metoprolol Tartrate (Lopressor Tab) 25 mg BID PO 02/01/17 21:00 03/03/17 08:59 02/04/17 20:52 25 MG Guaifenesin (Mucinex Contr Rel Tab) 600 mg Q12 PO 02/02/17 21:00 03/04/17 20:59 02/05/17 12:20 600 MG Prednisone (PredniSONE TAB) 30 mg DAILY PO 02/03/17 09:00 03/05/17 08:59 02/05/17 12:19 30 MG Insulin Glargine (Lantus Solostar Pen) 10 units QAM SC 02/05/17 09:00 03/03/17 08:59 02/05/17 08:20 10 UNITS
[2017-02-05] MEDS: WARFARIN SOD 5 MG TAB PO SCH (18:19)
[2017-02-05] MEDS: CLONIDINE HCL 0.1 MG TAB PO SCH ×2 (18:23→21:03)
[2017-02-05] MEDS: METOPROLOL TARTRATE 25 MG TAB PO SCH ×2 (18:24→21:03)
[2017-02-05] MEDS: LOSARTAN POTASSIUM 50 MG TAB PO SCH (18:24)
[2017-02-05] MEDS: FUROSEMIDE 40 MG TAB PO SCH (18:25)
[2017-02-05] MEDS: AMLODIPINE BESYLATE 5 MG TAB PO SCH (18:25)
[2017-02-06] VITALS: BP 154/78; PULSE 59; TEMP 36.9; O2SAT 97
[2017-02-06 04:00] VITALS: BP 145/70; PULSE 54; TEMP 36.8; O2SAT 97
[2017-02-06 06:46] LABS: INR 1.3 (0.9-1.1); PROTHROMBIN TIME (PATIENT) 14.4 SECONDS (9.0-12.0)
[2017-02-06 07:09] LABS: CALCIUM 8.1 mg/dl (8.5-10.1); CREATININE 7.77 mg/dl (0.60-1.20); POTASSIUM 4.2 mmol/L (3.5-5.1)
[2017-02-06] MEDS ORDERED: COUGH DROP (SUGAR FREE) LOZ 24 LOZ/1 BOX ONE (07:29)
[2017-02-06 08:00] VITALS: BP 144/76; PULSE 51; TEMP 36.7; O2SAT 97
[2017-02-06] MEDS: FLUTICASONE/SALMETEROL 250/50 (ADVAIR) 14 PUFF/1 INHALER INH SCH (08:01)
[2017-02-06] MEDS: CALCIUM ACETATE 667MG GELCAP PO SCH ×2 (08:02→12:13)
[2017-02-06] MEDS: NEPHROCAPS PO SCH (08:02)
[2017-02-06] MEDS: GUAIFENESIN 600 MG TABCR PO SCH (08:02)
[2017-02-06] MEDS: CLONIDINE HCL 0.1 MG TAB PO SCH (08:03)
[2017-02-06] MEDS: PrednisoLONE ACET 1% OP SUSP 5 ML BTL OPL SCH (08:03)
[2017-02-06] MEDS: INSULIN GLARGINE SOLOSTAR 100 UNITS/ML 3 ML PEN SC SCH (08:07)
[2017-02-06] MEDS: METOPROLOL TARTRATE 25 MG TAB PO SCH (09:10)
[2017-02-06] MEDS: AMLODIPINE BESYLATE 5 MG TAB PO SCH (09:10)
[2017-02-06] MEDS: FUROSEMIDE 40 MG TAB PO SCH (09:10)
[2017-02-06] MEDS: LOSARTAN POTASSIUM 50 MG TAB PO SCH (09:11)
[2017-02-06] MEDS: INSULIN ASPART 100 UNITS/ML 3 ML PEN SC SCH ×2 (09:15→12:19)
[2017-02-06 09:17] LABS: HEPATITIS B AB NEG
--- NOTE | 2017-02-06 11:17 | Discharge Instructions ---
Discharge Instructions Date of Service Feb 06, 2017. Admission Reason for Admission: Respiratory Failure, Acute Discharge Discharge Diagnosis / Problem: Respiratory failure Discharge Goals Goal(s): Therapeutic intervention Activity Recommendations Activity Limitations: resume your previous activity . Instructions / Follow-Up Instructions / Follow-Up Check your weight daily as rapid gain may indicate fluid retention Please follow up with Dr. Armando on Tuesday, February 07 at 5:30 PM for hospital follow up Please follow up with Coagulation clinic as scheduled. Please follow up with Cardiology as scheduled. Please attend next scheduled dialysis on TuesdayFebruary 08. Current Hospital Diet Patient's current hospital diet: Diabetes Type 2 Diet, Renal Diet Discharge Diet Recommended Diet: Diabetes Type 2 Diet, Renal Diet Pending Studies Studies pending at discharge: no Laboratory Results Hemoglobin A1c Test 02/01/17 05:25 Range/Units Estimated Average Glucose 128 mg/dl Hemoglobin A1c 6.1 H 4.5-5.6 % Medical Emergencies . Who to Call and When: Medical Emergencies: If at any time you feel your situation is an emergency, please call 911 immediately. . Non-Emergent Contact Non-Emergency issues call your: Primary Care Provider . . "Provider Documentation" section prepared by Jacqueline Hyatt. . VTE Core Measure Inpt VTE Proph given/why not?: Warfarin (Coumadin)
[2017-02-06] MEDS ORDERED: METH4PAK PO (11:24)
--- NOTE | 2017-02-06 12:08 | Discharge Summary ---
Discharge Summary Date of Service Feb 06, 2017. Discharge Summary Admission Date: Feb 01, 2017 at 06:24 Discharge Date: Feb 06, 2017 Discharge Disposition: Home Principal Diagnosis: Pulmonary congestion, SOB, bronchitis Medication Reconciliation New Medications: Methylprednisolone (Medrol Dosepak) 4 Mg Pedro 1 PKT PO UD for 6 Days, #1 PKT Continued Medications: Acetaminophen (Apap) 325 Mg Tab 650 MG PO Q6 PRN for Pain Albuterol Hfa (Ventolin Hfa) 200 Puffs/46834 Mcg Aers 2 PUFFS INH Q4 PRN for SOB/Wheezing Amlodipine (Norvasc) 10 Mg Tab 10 MG PO QAM Calcium Acetate (Phoslo 667 Mg) 667 Mg Cap 2 CAP PO TIDM, CAP Clonidine Hcl (Catapres) 0.1 Mg Tab 0.1 MG PO BID, TAB Cyanocobalamin (Cyanocobalamin) 1,000 Mcg/Ml Inj 1000 MCG IM MONTHLY Epoetin Hakan (Procrit) 10,000 Units Inj per dialysis clinic Ergocalciferol (Vitamin D 08858 Unit) 50,000 Unit Cap 39399 UNIT PO MONTHLY, CAP 9th Fluticasone Prop/Salmeterol (Advair Diskus 250/50 60 Dose) 1 Ea Aerp 2 PUFF INH BID Furosemide (Furosemide) 40 Mg Tab 40 MG PO DAILY Home O2 Therapy (Oxygen) Gas 2.5 LITERS NA CONTINOUS Insulin Aspart (Novolog Flexpen) 100 Units/Ml Inj 2-3 UNITS SQ TIDM TAKES PER SLIDING SCALE Insulin Glargine (Lantus) 100 Unit/Ml Inj 26 UNITS SC QAM, VIAL Ipratropium-Albuterol (Duoneb) 3 Ml Nebu 1 TREATMENT INH QID PRN for SOB/Wheezing, INHA Lactobacillus (Lactobacillus) 1 Tab Tab 1 TAB PO UD Lidocaine-Prilocaine (Amnrqpoel-Uvovjpsokm-Vwhb 2.5-2.5 %) 1 Cre Cre 1 APPLN TOP UD PRN for PRIOR TO DIALYSIS APPLY SMALL AMT TO ACCESS SITE 1-2 HOURS BEFORE DIALYSIS. COVER WITH SARAN WRAP Losartan Potassium (Cozaar) 100 Mg Tab 100 MG PO DAILY, TAB Metoprolol Tartrate (Lopressor) (Lopressor) 25 Mg Tab 25 MG PO BID Prednisolone Acetate (Ophth) (Pred Forte 1% Oph) 1 % Neena 1 DROPS OPL DAILY, #5 ML Pseudoephedrine-Guaifenesin (Cvs Mucus D Extended Rele 60-600 mg) 1 Tab Tab 1 TAB PO Q12 PRN for Nasal Congestion Umeclidinium [place] (Incruse Ellipta) 62.5 Mcg/Inh Inh 1 PUFF INH DAILY, #30 Valacyclovir Hcl (Valtrex) 1 Gm Tab 1000 MG PO DAILY, #21 TAB Vitamin B Cmplx/Vitc/Folic Ac (Nephrocaps) Cap 1 CAP PO DAILY, CAP Warfarin Sodium (Warfarin Sodium) 5 Mg Tab 5-10 MG PO DAILY Admission Information HPI (per Admitting provider): PRIMARY CARE PHYSICIAN: Dr. Armando. CHIEF COMPLAINT: Shortness of breath. HISTORY OF PRESENT ILLNESS: History obtained from patient and records. Medical history significant for chronic respiratory failure secondary to COPD on home O2, ongoing tobacco abuse, hypertension, PAF on Coumadin, history of mitral regurgitation, end-stage renal disease on dialysis, DM2 insulin requiring, HSV iridocyclitis left ongoing treatment Chronic anemia (baseline hemoglobin 7-9) Recent confinement last November 2016 for tachycardia after dialysis. As per patient, she was being taken off dialysis early because her blood pressure would be undetectable. Increasing shortness of breath on exertion the last few days. No unusual cough symptoms, some chest tightness. Denies dietary indiscretion. Hypoglycemic at some point. Brought to the Emergency Room. Given Lasix for pulmonary congestion, Solu-Medrol for possible COPD exacerbation. MEDICAL HISTORY: As above. Dialysis on Tuesday, , Tuesday. A 2D echo from 11/11/2016 showed LVH, EF 70%, aortic valve sclerosis, moderate to severe MR. SURGERIES: She has had vascular procedures, eye surgery, appendectomy, hysterectomy, oophorectomy, cholecystectomy and polypectomy. HOME MEDICATIONS: Include prednisolone, Valtrex, Ellipta, Nephrocaps, NovoLog, Lantus, Cozaar, lactobacillus lidocaine, Lopressor, vitamin D, Procrit, Advair Diskus, home O2, DuoNebs, Tylenol, Ventolin, Norvasc, clonidine, PhosLo, cyanocobalamin. ALLERGIES: No known drug allergies. FAMILY HISTORY: Diabetes, heart disease, hypertension. PERSONAL AND SOCIAL HISTORY: Few cigarettes today. No chronic intake of alcoholic beverages. 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 REVIEW OF SYSTEMS: As per HPI, all other ROS negative. Physical Exam (per Admitting): PHYSICAL EXAMINATION: VITAL SIGNS: Blood pressure was noted to be 158/77, later 117/70, pulse rate 90, RR 16, sats 94 on 3 liters. GENERAL: Noted to be anxious, no overt respiratory distress. Obese. SKIN: Sallow, warm. HEENT: Pale palpebral conjuctivae, mild ptosis on the left w/ epiphora, dry buccal mucosa. NECK: Short neck. No tenderness. CHEST: Decreased effort. No tenderness. HEART: Regular, rate and rhythm, systolic murmur. ABDOMEN: Some distension, nontender. EXTREMITIES: Bilateral lower extremity edema, no tenderness. No gross deformity. NEUROLOGIC: Coherent. No gross focality. Hospital Course SHORTNESS OF BREATH: -CXR mentions mild cardiomegaly, trace left pleural effusion, suggested mild developing pulmonary edema pattern; hazy bibasilar consolidative opacities suggest atelectasis or pneumonia -symptoms gradually improving, remains on steroids and dialysis as scheduled -oxygen requirements higher than baseline rate, weaning as tolerated -no evidence of pneumonia/infectious etiology, no wheezing -has known COPD and reports symptoms being worse at night, possibly bronchitis, started on a short course of steroids (5 days total) and duonebs, no indication for abx -last TTE (October) shows preserved EF 70%, moderate to severe MR CHRONIC ANEMIA: has anemia of chronic disease due to ESRD -Hb 9.0 -baseline Hb 9-10 per records ESRD on HD: -has HD every Tuesday, , Tuesday -Nephrology consulted -Procrit as per Nephro -strict I's and O's, daily weights -does not tolerate much fluid removal at HD which has been limiting PAROXYSMAL ATRIAL FIB: -on Coumadin, followed by coag clinic -INR subtherapeutic at 1.3-1.4 -continue b-mariana (patient normally takes this after dialysis) -rate controlled COPD: -on continuous O2; has been requiring more oxygen (5-6L) -history of tobacco use, still smoking -continue home inhalers -continue duonebs HTN: -continue home meds -monitor DM TYPE II: -continue Lantus + Novolog sliding scale -BSG AC and HS PHYSICAL EXAM ON DATE OF DISCHARGE: GENERAL: Patient is in no acute distress. HEENT: No acute trauma, normocephalic atraumatic, mucous membranes moist, no nasal congestion, no scleral icterus. Conjunctivae clear. NECK: No stridor, trachea is midline. LUNGS: Diminished breath sounds bilaterally, bibasilar crackles, no wheeze, no rhonchi HEART: Without murmurs gallops or rubs, regular rate and rhythm. ABDOMEN: Soft, nontender, bowel sounds positive, no hepatosplenomegaly EXTREMITIES: No cyanosis or edema, full range of motion of all the joints without pain or difficulty, no signs for acute trauma. NEUROLOGIC: Oriented x 3, no acute motor or sensory deficits, no focal weakness. SKIN: No rash, no jaundice, no diaphoresis. Total time spent on discharge = 37 This includes examination of the patient, discharge planning, medication reconciliation, and communication with other providers. Discharge Instructions See patient instructions
[2017-02-06 12:26] VITALS: BP 144/76; PULSE 51; TEMP 36.7; O2SAT 97
--- NOTE | 2017-02-08 08:55 | EDITING REQUIRED CODING QUERY ---
CODING QUERY To promote full compliance with coding requirements relating to patient care, provider participation is requested in all cases of information coder uncertainty. Please assist us with the question(s) below: Coding Question(s): Please clarify below, in your clinical opinion, regarding the etiology of the shortness of breath. ( ) Shortness of Breath, unknown etiology ( ) Shortness of Breath, most likely due to Pulmonary Edema, Specify below. ( ) Acute Pulmonary Edema, not CHF ( ) Acute Pulmonary Edema - Meaning CHF, Specify the CHF type: ( ) Pulmonary Edema, unspecified ( ) Shortness of Breath, most likely due to Bronchitis. Specify below. ( ) Acute Bronchitis ( ) Chronic Bronchitis ( x ) Shortness of Breath, most likely due to Pulmonary Congestion. Specify below. ( ) Pulmonary congestion, acute or active, meaning Pneumonia ( x ) Pulmonary congestion, unspecified, possibly multifactorial from fluid retention and viral URI ( ) Shortness of Breath, most likely due to other: Specify Physician's Response(s): Thank you Chelsy Salinas Principal Diagnosis: "_that condition established after study, to be chiefly responsible for occasioning the admission of the patient to the hospital for care." Co-Existing Principal Diagnosis: "_when two or more diagnoses equally meet the criteria for principal diagnosis as determined by the circumstances of admission, diagnostic work up, and/or therapy provided, and the Alphabetic Index, Tabular List, or another coding guideline does not provide sequencing direction, any one of the diagnoses may be sequenced first." "When the physician has documented what appears to be a current diagnosis in the body of the record, but has not included the diagnosis in the final diagnostic statement, the physician should be asked whether the diagnosis should be added." (Source Coding [facility] 2 QTR90. p3-4)
[2017-02-14] MEDS ORDERED: WARF-246 PO (12:04)
[2017-02-14] MEDS ORDERED: METO50TA16 PO (12:04)
[2017-02-14] MEDS ORDERED: DILT-202 PO (12:04)
[2017-03-05] MEDS ORDERED: AMOX500T PO (14:20)
--- NOTE | 2017-03-11 07:19 | EDITING REQUIRED CODING QUERY ---
CODING QUERY To promote full compliance with coding requirements relating to patient care, provider participation is requested in all cases of ornamental rail installer uncertainty. Please assist us with the question(s) below: Coding Question(s): Clarification is needed on the answer to the previous query. You documented Shortness of Breath, most likely due to Pulmonary Congestion, unspecified, possibly multifactorial from fluid retention and viral URI. Clarification is needed in regards to the fluid retention. Please clarify below, in your clinical opinion regarding the pulmonary congestion from fluid retention. ( ) Fluid retention is fluid in the lung (Lung Edema) ( ) Unspecified ( ) Acute ( x ) Chronic ( ) with heart condition or failure - Specify type of heart condition or heart failure: ( ) Fluid retention is other - Specify Physician's Response(s): Thank you Chelsy Salinas Principal Diagnosis: "_that condition established after study, to be chiefly responsible for occasioning the admission of the patient to the hospital for care." Co-Existing Principal Diagnosis: "_when two or more diagnoses equally meet the criteria for principal diagnosis as determined by the circumstances of admission, diagnostic work up, and/or therapy provided, and the Alphabetic Index, Tabular List, or another coding guideline does not provide sequencing direction, any one of the diagnoses may be sequenced first." "When the physician has documented what appears to be a current diagnosis in the body of the record, but has not included the diagnosis in the final diagnostic statement, the physician should be asked whether the diagnosis should be added." ([facility] 2 QTR90. p3-4)
== END 2017-02-06 12:44 | disposition home or self-care (01) | DRG 189 ==
LOC: EDBD 05:42 → C.EDB 05:44 → C.MED 06:24 → EDBEDREQ 06:29 → ENRESERV 06:48
PROVIDERS: ADMIT Internal Medicine; ATTEND Internal Medicine
DX: J81.1 Chronic pulmonary edema (principal); N18.6 End stage renal disease; J96.10 Chronic respiratory failure, unspecified whether with hypoxia or hypercapnia; I13.11 Hypertensive heart and chronic kidney disease without heart failure, with stage 5 chronic kidney disease, or end stage renal disease; B00.51 Herpesviral iridocyclitis; J06.9 Acute upper respiratory infection, unspecified; J44.9 Chronic obstructive pulmonary disease, unspecified; D63.1 Anemia in chronic kidney disease; I48.0 Paroxysmal atrial fibrillation; E11.22 Type 2 diabetes mellitus with diabetic chronic kidney disease; I34.0 Nonrheumatic mitral (valve) insufficiency; E66.9 Obesity, unspecified; F17.210 Nicotine dependence, cigarettes, uncomplicated; Z51.81 Encounter for therapeutic drug level monitoring; Z79.899 Other long term (current) drug therapy; Z79.4 Long term (current) use of insulin; Z79.01 Long term (current) use of anticoagulants; Z99.81 Dependence on supplemental oxygen; Z99.2 Dependence on renal dialysis; Z68.36 Body mass index [BMI] 36.0-36.9, adult; Z83.3 Family history of diabetes mellitus; Z82.49 Family history of ischemic heart disease and other diseases of the circulatory system

== ENCOUNTER 2017-02-08 02:04 | Inpatient (IN) | payer OTHER ==
[~2017-02-08] VITALS: Ht 167.6 cm; Wt 110.1 kg
[2017-02-08] VITALS (28 sets, daily range): BP systolic 122–187; BP diastolic 63–109; PULSE 58–128; TEMP 36.6–37.5; O2SAT 91–100; BMI 36.6
[~2017-02-08 02:04] MED LIST changes: -LCTX PO; +METH4PAK PO; +PSEU1TAB PO; +WARF-246 PO; -WARF5TAB90 PO; -[UNRECOGNIZED DRUG - CODE] PO
[2017-02-08 02:27] LABS: BASO % 0.2 %; BASO ABS # 0.04 K/uL (0-0.2); EOS % 1.1 %; HEMATOCRIT 34.3 % (37-47); IG% 0.7 %; LYMPH % 5.1 %; LYMPH ABS # 0.87 K/uL (1.2-3.4); MEAN CELL VOLUME 111.4 fL (80-100); MEAN CORPUSCULAR HEMOGLOBIN 36.7 pg (25-34); MEAN CORPUSCULAR HGB CONC 32.9 g/dl (32-36); MEAN PLATELET VOLUME 10.4 fL (7.4-10.4); MONO % 4.5 %; NEUT % 88.4 %; PLATELET COUNT 205 K/uL (130-400); RED BLOOD COUNT 3.08 M/uL (4.2-5.4); WHITE BLOOD COUNT 17.22 K/uL (4.8-10.8)
[2017-02-08] MEDS ORDERED: NITROGLYCERIN OINT 2% 1GM PACKET EXT ONE (02:30)
[2017-02-08 02:39] LABS: INR 1.4 (0.9-1.1); PARTIAL THROMBOPLASTIN RATIO 1.1
[2017-02-08 02:54] LABS: COMPLETE YES; HYPERSEGMENTED POLYS OCCASIONAL; OVALOCYTES 1+; POLYCHROMASIA 1+
--- NOTE | 2017-02-08 02:56 | EMERGENCY ROOM VISIT NOTE ---
History Report prepared by Sebastian: Eliz Regalado Under the Supervision of: Dr. Hailey Valdez M.D. First contact with patient: 02:10 Chief Complaint: SHORTNESS OF BREATH Stated Complaint: RESPIRATORY PROBLEMS History of Present Illness The patient is a 71 year old female who presents to the Emergency Room with complaints of persistent SOB starting DENTAL COORDINATOR. She presents to the ED by EMS. She woke up with SOB. She is due for dialysis today. She was discharged from the hospital 2 days ago for similar issues. The history is limited due to the patient's SOB/BiPAP. Additional history given by EMS. Source of History: patient, EMS History Limited By: dyspnea Onset: DENTAL COORDINATOR Position: other (global) Quality: other (SOB) Timing: other (persistent) Review of Systems Limited due to patient's SOB. 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 (14) History of Helicobacter pylori infection (15) Hypertension Nos (16) Moderate mitral regurgitation (17) Obesity (18) Osteoarthritis (19) Pancreatic cyst (20) Psoriasis (21) Renal cyst (22) Respiratory failure, acute (23) SOB (shortness of breath) Surgical Problems: (1) H/O colonoscopy (2) H/O nasal polypectomy (3) History of cataract surgery (4) S/P appendectomy (5) S/P cholecystectomy (6) S/P left oophorectomy (7) S/P ASH (total abdominal hysterectomy) Family History Diabetes mellitus FATHER MOTHER BROTHER FH: cancer BROTHER FH: heart disease FATHER Hypertension BROTHER Kidney disease BROTHER Social History Smoking Status: Current Every Day Smoker Drug Use: none Marital Status: Housing Status: lives with family Occupation Status: retired Current/Historical Medications Scheduled Amlodipine (Norvasc), 10 MG PO QAM Calcium Acetate (Phoslo 667 Mg), 2 CAP PO TIDM Clonidine Hcl (Catapres), 0.1 MG PO BID Cyanocobalamin (Cyanocobalamin), 1,000 MCG IM MONTHLY Ergocalciferol (Vitamin D 21221 Unit), 50,000 UNIT PO MONTHLY Fluticasone Prop/Salmeterol (Advair Diskus 250/50 60 Dose), 2 PUFF INH BID Furosemide (Furosemide), 40 MG PO DAILY Home O2 Therapy (Oxygen), 2.5 LITERS NA CONTINOUS Insulin Aspart (Novolog Flexpen), 2-3 UNITS SQ TIDM Insulin Glargine (Lantus), 26 UNITS SC QAM Lactobacillus (Lactobacillus), 1 TAB PO UD Losartan Potassium (Cozaar), 100 MG PO DAILY Methylprednisolone (Medrol Dosepak), 1 PKT PO UD Metoprolol Tartrate (Lopressor) (Lopressor), 25 MG PO BID Prednisolone Acetate (Ophth) (Pred Forte 1% Oph), 1 DROPS OPL DAILY Umeclidinium [place] (Incruse Ellipta), 1 PUFF INH DAILY Valacyclovir Hcl (Valtrex), 1,000 MG PO DAILY Vitamin B Cmplx/Vitc/Folic Ac (Nephrocaps), 1 CAP PO DAILY Warfarin Sodium (Warfarin Sodium), 5-10 MG PO DAILY Scheduled PRN Acetaminophen (Apap), 650 MG PO Q6 PRN for Pain Albuterol Hfa (Ventolin Hfa), 2 PUFFS INH Q4 PRN for SOB/Wheezing Ipratropium-Albuterol (Duoneb), 1 TREATMENT INH QID PRN for SOB/Wheezing Lidocaine-Prilocaine (Riksaxvgn-Imsestvusd-Bniq 2.5-2.5 %), 1 APPLN TOP UD PRN for PRIOR TO DIALYSIS Pseudoephedrine-Guaifenesin (Cvs Mucus D Extended Rele 60-600 mg), 1 TAB PO Q12 PRN for Nasal Congestion Miscellaneous Medications Epoetin Hakan (Procrit) Allergies Coded Allergies: No Known Allergies (Verified , 02/08/17) Physical Exam Vital Signs Date Time Temp Pulse Resp B/P (MAP) Pulse Ox O2 Delivery O2 Flow Rate FiO2 02/08/17 04:39 62 13 100 CPAP 02/08/17 04:32 175/79 02/08/17 04:09 57 18 100 CPAP 02/08/17 04:04 56 18 100 CPAP 02/08/17 04:01 146/65 02/08/17 03:34 58 19 100 CPAP 02/08/17 03:31 142/65 02/08/17 03:04 62 23 100 CPAP 02/08/17 03:01 161/72 02/08/17 02:34 68 19 100 CPAP 02/08/17 02:31 179/86 02/08/17 02:21 36.8 75 20 193/74 100 CPAP 02/08/17 02:21 100 CPAP 45 02/08/17 02:21 72 100 02/08/17 02:19 193/74 02/08/17 02:17 201/107 02/08/17 02:14 71 Physical Exam Vital signs reviewed. Noted to be markedly hypertensive. General: Chronically ill-appearing female, on CPAP. HEENT: No scleral icterus, PERRLA, neck supple. Atraumatic. Cardiovascular: Regular rate and rhythm, no extra sounds. Pulmonary: Diminished breath sounds at the bases with crackles near the apex. Abdomen: Soft, nontender, nondistended, positive bowel sounds. Musculoskeletal: Atraumatic, no peripheral edema. Neurologic: Patient awake alert and oriented x 3 Skin: Warm, dry, no rash Medical Decision & Procedures ER Provider Diagnostic Interpretation: X-ray results as stated below per interpretation by me: Chest X-ray: Consistent with congestive heart failure. Blunted costophrenic angles bilaterally. Mild cardiomegaly. No significant change when compared to February 01. Laboratory Results 02/08/17 02:12 Red Blood Count 3.08, Mean Corpuscular Volume 111.4, Mean Corpuscular Hemoglobin 36.7, Mean Corpuscular Hemoglobin Concent 32.9, Mean Platelet Volume 10.4, Neutrophils (%) (Auto) 88.4, Lymphocytes (%) (Auto) 5.1, Monocytes (%) ( Auto) 4.5, Eosinophils (%) (Auto) 1.1, Basophils (%) (Auto) 0.2, Neutrophils # ( Auto) 15.23, Lymphocytes # (Auto) 0.87, Monocytes # (Auto) 0.77, Eosinophils # ( Auto) 0.19, Basophils # (Auto) 0.04 02/08/17 02:12 Test 02/08/17 02:12 02/08/17 02:19 02/08/17 02:21 White Blood Count 17.22 K/uL (4.8-10.8) Red Blood Count 3.08 M/uL (4.2-5.4) Hemoglobin 11.3 g/dL (12.0-16.0) Hematocrit 34.3 % (37-47) Mean Corpuscular Volume 111.4 fL (80-100) Mean Corpuscular Hemoglobin 36.7 pg (25-34) Mean Corpuscular Hemoglobin Concent 32.9 g/dl (32-36) Platelet Count 205 K/uL (130-400) Mean Platelet Volume 10.4 fL (7.4-10.4) Neutrophils (%) (Auto) 88.4 % Lymphocytes (%) (Auto) 5.1 % Monocytes (%) (Auto) 4.5 % Eosinophils (%) (Auto) 1.1 % Basophils (%) (Auto) 0.2 % Neutrophils # (Auto) 15.23 K/uL (1.4-6.5) Lymphocytes # (Auto) 0.87 K/uL (1.2-3.4) Monocytes # (Auto) 0.77 K/uL (0.11-0.59) Eosinophils # (Auto) 0.19 K/uL (0-0.5) Basophils # (Auto) 0.04 K/uL (0-0.2) RDW Standard Deviation 68.3 fL (36.4-46.3) RDW Coefficient of Variation 17.2 % (11.5-14.5) Immature Granulocyte % (Auto) 0.7 % Immature Granulocyte # (Auto) 0.12 K/uL (0.00-0.02) Hypersegmented Polys OCCASIONAL Polychromasia 1+ Macrocytosis PRESENT Ovalocytes 1+ Prothrombin Time 15.0 SECONDS (9.0-12.0) Prothromb Time International Ratio 1.4 (0.9-1.1) Activated Partial Thromboplast Time 28.0 SECONDS (21.0-31.0) Partial Thromboplastin Ratio 1.1 Anion Gap 14.0 mmol/L (3-11) Est Creatinine Clear Calc Drug Dose 5.5 ml/min Estimated GFR () 3.3 Estimated GFR (Non- 2.8 BUN/Creatinine Ratio 7.8 (10-20) Calcium Level 8.3 mg/dl (8.5-10.1) Magnesium Level 2.4 mg/dl (1.8-2.4) Total Bilirubin 1.6 mg/dl (0.2-1) Direct Bilirubin 0.3 mg/dl (0-0.2) Aspartate Amino Transf (AST/SGOT) 45 U/L (15-37) Alanine Aminotransferase (ALT/SGPT) 85 U/L (12-78) Alkaline Phosphatase 119 U/L (45-117) Total Creatine Kinase 77 U/L (26-192) Creatine Kinase MB 2.2 ng/ml (0.5-3.6) Creatine Kinase MB Ratio 2.9 (0-3.0) Total Protein 7.4 gm/dl (6.4-8.2) Albumin 4.0 gm/dl (3.4-5.0) Bedside Lactic Acid Venous 0.93 mmol/L (0.90-1.70) Bedside Troponin I < 0.030 ng/ml (0-0.045) Laboratory results per my review. Medications Administered Medications (Trade) Dose Ordered Sig/Joan Route Start Time Stop Time Status Last Admin Dose Admin Nitroglycerin (Nitroglycerin 2% Oint) 1 inch NOW ONCE EXT 02/08/17 02:30 02/08/17 02:31 DC 02/08/17 02:32 1 INCH ECG Indication: SOB/dyspnea Rate (beats per minute): 77 Rhythm: normal sinus Findings: Q waves (Anterior), no acute ischemic change, other (poor quality baseline for interpretation) ED Course 0218: Past medical records reviewed. The patient was evaluated in room A3. A complete history and physical examination was performed. 0230: Nitroglycerin 1 inch EXT. 0339: I reevaluated the patient. She is stable. 0341: I reviewed the patient's case with Dr. Chaudhry, [facility] hospitalist. He will evaluate the patient for further management. Medical Decision Differential diagnosis: Etiologies such as infections, reactive airway disease, pneumonia, pneumothorax , COPD, CHF, cardiac ischemia, pulmonary embolism, musculoskeletal, gastrointestinal, as well as others were entertained. This patient was evaluated and appeared to be in some respiratory distress. Patient was placed on CPAP by EMS and transitioned to BiPAP on arrival. The patient seemed to be tolerating this well. Oxygen saturations were near 100%. Patient is due for dialysis later this morning. EKG reveals no evidence of acute ischemic change. Laboratory work is fairly unrevealing. Chest x-ray to my interpretation is consistent with CHF. Patient was given nitroglycerin paste 1 inch with good result. No diuretics were administered as the patient would not likely benefit. The patient was informed of the plan and agrees. She will be evaluated by the [facility] service for further management. Medication Reconcilliation Current Medication List: was personally reviewed by me Blood Pressure Screening Patient's blood pressure: Elevated blood pressure Referred to hospitalist for further care. Consults Time Called: [phone] Consulting Physician: Dr. Chaudhry, [facility] Returned Call: [phone] I reviewed the patient's case with him. He will evaluate the patient for further management. Impression Primary Impression: CHF (congestive heart failure) Additional Impression: Respiratory failure Critical Care I have personally spent greater than 35 minutes of critical care time in the direct management of this patient. This includes bedside care, interpretation of diagnostic studies, and testing, discussion with consultants, patient, and family members, and other required patient management activities. This 35 minutes is in excess of all separately billable procedures. Scribe Attestation The scribe's documentation has been prepared under my direction and personally reviewed by me in its entirety. I confirm that the note above accurately reflects all work, treatment, procedures, and medical decision making performed by me. Departure Information Dispostion Being Evaluated By Hospitalist Referrals Noam Armando M.D. (PCP) Patient Instructions My [facility] Problem Qualifiers
[2017-02-08 03:05] LABS: BUN/CREATININE RATIO 7.8 (10-20); CALCIUM 8.3 mg/dl (8.5-10.1); CKMB/CK RATIO 2.9 (0-3.0); MAGNESIUM 2.4 mg/dl (1.8-2.4); POTASSIUM 4.4 mmol/L (3.5-5.1)
[2017-02-08] MEDS ORDERED: GLUCOSE 10 TABS/TUBE PO PRN ×2 (05:15→07:00)
[2017-02-08] MEDS ORDERED: GLUCOSE 40% GEL 15 GM TUBE PO PRN ×2 (05:15→07:00)
[2017-02-08] MEDS ORDERED: DEXTROSE 50% 50 ML SYR IV PRN ×2 (05:15→07:00)
[2017-02-08] MEDS ORDERED: GLUCAGON FOR INJ 1 MG VIAL SQ PRN ×2 (05:15→07:00)
[2017-02-08] MEDS ORDERED: ALBUTEROL HFA 8 GM INHALER INH PRN (05:15)
[2017-02-08] MEDS ORDERED: FUROSEMIDE INJ 20 MG in SYRINGE 0 ML IV STA (05:39)
--- NOTE | 2017-02-08 05:43 | History and Physical ---
History & Physical Date & Time of Service: Feb 08, 2017 at 05:08 Chief Complaint: Respiratory Problems Primary Care Physician: Noam Armando M.D. History of Present Illness Source: patient, family, clinic records, hospital records 71 year old female with PMH DM type 2, Tobacco abuse, Paroxysmal AFib, ESRD on HD, HTN, COPD, CHF presents to the Emergency Room with complaints of worsening SOB. History is limited because pt is on Bipap. Pt was recently admitted on 02/01 to 02/06 for SOB. Pt said that she was doing ok after discharging. Her breathing was stable and she saw her PCP yesterday for a hospital follow. She said that last night around midnight she develops SOB. She said that the SOB woke her up and she was gasping for air. She said that she has been monitor her fluid intake. She continue to smoke. Denies any chest pain, palpitation, fever. 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 (12) History of Helicobacter pylori infection Status: Chronic (13) Hypertension Nos Status: Chronic (14) Moderate mitral regurgitation Permanent Comment: moderate to severe on 12/2015 echo Status: Chronic (15) Obesity Status: Chronic (16) Osteoarthritis Status: Chronic (17) Pancreatic cyst Status: Chronic (18) Psoriasis Status: Chronic (19) Renal cyst Status: Chronic Surgical Problems: (1) H/O colonoscopy Permanent Comment: 2005, hyperplastic polyps repeat in 10 years Status: Chronic (2) H/O nasal polypectomy Status: Chronic (3) History of cataract surgery Status: Chronic (4) S/P appendectomy Permanent Comment: 1971 Status: Chronic (5) S/P cholecystectomy Permanent Comment: 1971 Status: Chronic (6) S/P left oophorectomy Permanent Comment: 1982 Status: Chronic (7) S/P ASH (total abdominal hysterectomy) Permanent Comment: For Fibroids Status: Resolved Family History Diabetes mellitus FATHER MOTHER BROTHER FH: cancer BROTHER FH: heart disease FATHER Hypertension BROTHER Kidney disease BROTHER Social History Smoking Status: Current Every Day Smoker Drug Use: none Marital Status: Housing status: lives alone Occupational Status: retired Immunizations History of Influenza Vaccine: Yes Influenza Vaccine Date: Dec 26, 2014 History of Tetanus Vaccine?: Yes Tetanus Immunization Date: August 04, 2010 History of Pneumococcal: Yes Pneumococcal Date: Feb 24, 2015 Multi-Drug Resistant Organisms History of MDRO: No Allergies Coded Allergies: No Known Allergies (Verified , 02/08/17) Home Medications Scheduled Amlodipine (Norvasc), 10 MG PO QAM Calcium Acetate (Phoslo 667 Mg), 2 CAP PO TIDM Clonidine Hcl (Catapres), 0.1 MG PO BID Cyanocobalamin (Cyanocobalamin), 1,000 MCG IM MONTHLY Ergocalciferol (Vitamin D 79825 Unit), 50,000 UNIT PO MONTHLY Fluticasone Prop/Salmeterol (Advair Diskus 250/50 60 Dose), 2 PUFF INH BID Furosemide (Furosemide), 40 MG PO DAILY Home O2 Therapy (Oxygen), 2.5 LITERS NA CONTINOUS Insulin Aspart (Novolog Flexpen), 2-3 UNITS SQ TIDM Insulin Glargine (Lantus), 26 UNITS SC QAM Lactobacillus (Lactobacillus), 1 TAB PO UD Losartan Potassium (Cozaar), 100 MG PO DAILY Methylprednisolone (Medrol Dosepak), 1 PKT PO UD Metoprolol Tartrate (Lopressor) (Lopressor), 25 MG PO BID Prednisolone Acetate (Ophth) (Pred Forte 1% Oph), 1 DROPS OPL DAILY Umeclidinium [place] (Incruse Ellipta), 1 PUFF INH DAILY Valacyclovir Hcl (Valtrex), 1,000 MG PO DAILY Vitamin B Cmplx/Vitc/Folic Ac (Nephrocaps), 1 CAP PO DAILY Warfarin Sodium (Warfarin Sodium), 5-10 MG PO DAILY Scheduled PRN Acetaminophen (Apap), 650 MG PO Q6 PRN for Pain Albuterol Hfa (Ventolin Hfa), 2 PUFFS INH Q4 PRN for SOB/Wheezing Ipratropium-Albuterol (Duoneb), 1 TREATMENT INH QID PRN for SOB/Wheezing Lidocaine-Prilocaine (Vrnywegif-Bcfqsjjmai-Mlic 2.5-2.5 %), 1 APPLN TOP UD PRN for PRIOR TO DIALYSIS Pseudoephedrine-Guaifenesin (Cvs Mucus D Extended Rele 60-600 mg), 1 TAB PO Q12 PRN for Nasal Congestion Miscellaneous Medications Epoetin [place] (Procrit) Review of Systems Constitutional: No fever, No chills Eyes: No eye pain, No discharge ENT: No nasal symptoms, No sore throat Respiratory: + shortness of breath, No sputum, No wheezing Cardiovascular: + orthopnea, No claudication, No palpitations Abdomen: No pain, No nausea, No vomiting Musculoskeletal: No calf pain Genitourinary - Female: No dysuria Neurologic: No weakness Psychiatric: No substance abuse Endocrine: No excessive thirst Hematologic / Lymphatic: No abnormal bleeding/bruising Integumentary: No rash, No itch Physical Exam Vital Signs Date Time Temp Pulse Resp B/P (MAP) Pulse Ox O2 Delivery O2 Flow Rate FiO2 02/08/17 02:21 36.8 75 20 193/74 100 CPAP 02/08/17 02:21 100 CPAP 45 02/08/17 02:21 72 100 02/08/17 02:14 71 General Appearance: + moderate distress, + obese Head: normocephalic, atraumatic Eyes: EOMI ENT: hearing grossly normal Neck: no JVD, trachea midline Respiratory/Chest: + respiratory distress, + decreased breath sounds Cardiovascular: regular rate, rhythm, no JVD Abdomen/GI: normal bowel sounds, non tender Back: no CVA tenderness Extremities/Musculoskelatal: no calf tenderness, + swelling (mild) Neurologic/Psych: alert, oriented x 3 Skin: warm/dry, no rash Diagnostics Laboratory Results Results Past 24 Hours Test 02/08/17 02:12 02/08/17 02:19 02/08/17 02:21 Range/Units White Blood Count 17.22 4.8-10.8 K/uL Red Blood Count 3.08 4.2-5.4 M/uL Hemoglobin 11.3 12.0-16.0 g/dL Hematocrit 34.3 37-47 % Mean Corpuscular Volume 111.4 80-100 fL Mean Corpuscular Hemoglobin 36.7 25-34 pg Mean Corpuscular Hemoglobin Concent 32.9 32-36 g/dl Platelet Count 205 130-400 K/uL Mean Platelet Volume 10.4 7.4-10.4 fL Neutrophils (%) (Auto) 88.4 % Lymphocytes (%) (Auto) 5.1 % Monocytes (%) (Auto) 4.5 % Eosinophils (%) (Auto) 1.1 % Basophils (%) (Auto) 0.2 % Neutrophils # (Auto) 15.23 1.4-6.5 K/uL Lymphocytes # (Auto) 0.87 1.2-3.4 K/uL Monocytes # (Auto) 0.77 0.11-0.59 K/uL Eosinophils # (Auto) 0.19 0-0.5 K/uL Basophils # (Auto) 0.04 0-0.2 K/uL RDW Standard Deviation 68.3 36.4-46.3 fL RDW Coefficient of Variation 17.2 11.5-14.5 % Immature Granulocyte % (Auto) 0.7 % Immature Granulocyte # (Auto) 0.12 0.00-0.02 K/uL Hypersegmented Polys OCCASIONAL Polychromasia 1+ Macrocytosis PRESENT Ovalocytes 1+ Prothrombin Time 15.0 9.0-12.0 SECONDS Prothromb Time International Ratio 1.4 0.9-1.1 Activated Partial Thromboplast Time 28.0 21.0-31.0 SECONDS Partial Thromboplastin Ratio 1.1 Sodium Level 140 136-145 mmol/L Potassium Level 4.4 3.5-5.1 mmol/L Chloride Level 101 98-107 mmol/L Carbon Dioxide Level 25 21-32 mmol/L Anion Gap 14.0 3-11 mmol/L Blood Urea Nitrogen 94 7-18 mg/dl Creatinine 12.00 0.60-1.20 mg/dl Est Creatinine Clear Calc Drug Dose 5.5 ml/min Estimated GFR () 3.3 Estimated GFR (Non- 2.8 BUN/Creatinine Ratio 7.8 10-20 Random Glucose 177 70-99 mg/dl Calcium Level 8.3 8.5-10.1 mg/dl Magnesium Level 2.4 1.8-2.4 mg/dl Total Bilirubin 1.6 0.2-1 mg/dl Direct Bilirubin 0.3 0-0.2 mg/dl Aspartate Amino Transf (AST/SGOT) 45 15-37 U/L Alanine Aminotransferase (ALT/SGPT) 85 12-78 U/L Alkaline Phosphatase 119 45-117 U/L Total Creatine Kinase 77 26-192 U/L Creatine Kinase MB 2.2 0.5-3.6 ng/ml Creatine Kinase MB Ratio 2.9 0-3.0 Total Protein 7.4 6.4-8.2 gm/dl Albumin 4.0 3.4-5.0 gm/dl Bedside Lactic Acid Venous 0.93 0.90-1.70 mmol/L Bedside Troponin I < 0.030 0-0.045 ng/ml Diagnostic Radiology [~ rep ct add3]] CHEST ONE VIEW PORTABLE CLINICAL HISTORY: SOB COMPARISON STUDY: 02/01/2017 FINDINGS: The heart is enlarged. There is diffuse elevation of the interstitium, likely secondary to congestive failure. Basal airspace opacities likely represent focal edema although a superimposed inflammatory process could appear similar.[ IMPRESSION: Congestive heart failure pattern. Bibasal airspace opacities likely represent focal edema although a superimposed inflammatory process could appear similar Electronically signed by: Deepak Terry M.D. 02/08/2017 6:44 AM Dictated Date/Time: 02/08/2017 6:42 AM Impression Assessment and Plan WORSENING SHORTNESS OF BREATH CHF EXACERBATION Mostly related to fluid overload CXR showed consistent with CHF Schedule for HD today Starting on BIPAP in the ER Will give Lasix Continue BIPAP Check BNP Will monitor in tele Most Recent ECHO on 11/11 * No significant change compared to previous study of 01/14/16. * Normal LV chamber size with moderate concentric LVH. * Hyperdynamic LV systolic function, EF >70%. * Aortic valve sclerosis moderate, without significant aortic valvular stenosis. * There is heavy focal calcification of the posterior mitral valve leaflet and annulus. Moderate to severe mitral regurgitation. * Moderate left atrial enlargement. ELEVATED WBC Possible reactive or steroid use Afebrile CXR showed no infiltrate Will hold on abx for now Check procalcitonin, if elevates consider to start abx Continue monitor CBC CHRONIC ANEMIA Anemia of chronic disease due to ESRD Hb 11.3 baseline Hb 9-10 per records ESRD on HD HD on Tuesday, , Tuesday Nephrology consult Monitor I/O PAROXYSMAL ATRIAL FIB: Rate control On NSR Continue metoprolol INR 1.4 On Coumadin TOBACCO ABUSE Counseling on smoking cessation COPD Continuous O2 supplement Continue smoking Continue home inhalers Duoneb prn HTN Continue home meds Monitor BP DM TYPE II continue Lantus + Novolog sliding scale -BSG AC and HS DVT Px On coumadin SCDs INR 1.4 CODE STATUS FULL CODE as per my discussion with pt. Level of Care Telemetry Resuscitation Status FULL RESUSCITATION VTE Prophylaxis VTE Risk Assessment Done? Y/N: Yes Risk Level: Moderate Given or contraindicated: Warfarin (Coumadin), SCD's
[2017-02-08] MEDS ORDERED: FUROSEMIDE INJ 40 MG in SYRINGE 0 ML IV STA (05:55)
--- NOTE | 2017-02-08 06:45 | DIAGNOSTIC IMAGING REPORT ---
CHEST ONE VIEW PORTABLE CLINICAL HISTORY: SOB COMPARISON STUDY: 02/01/2017 FINDINGS: The heart is enlarged. There is diffuse elevation of the interstitium, likely secondary to congestive failure. Basal airspace opacities likely represent focal edema although a superimposed inflammatory process could appear similar.[ IMPRESSION: Congestive heart failure pattern. Bibasal airspace opacities likely represent focal edema although a superimposed inflammatory process could appear similar Electronically signed by: Deepak Terry M.D. 02/08/2017 6:44 AM Dictated Date/Time: 02/08/2017 6:42 AM
[2017-02-08] MEDS: INSULIN ASPART 100 UNITS/ML 3 ML PEN SC SCH ×4 (07:00→21:00)
[2017-02-08] MEDS: ALBUT/IPRATROP 3MG/0.5MG NEB 3 ML VIAL INH SCH ×4 (07:13→19:17)
[2017-02-08] MEDS: CALCIUM ACETATE 667MG GELCAP PO SCH ×3 (07:30→16:45)
--- NOTE | 2017-02-08 07:45 | NEPHROLOGY CONSULTATION ---
DATE OF CONSULTATION: 02/08/2017 ATTENDING OF RECORD: Dr. Chaudhry. REASON FOR CONSULTATION: End-stage renal disease. HISTORY OF PRESENT ILLNESS: This is a 71-year-old female who dialyzes at the [facility] on Tuesdays, , and Saturdays, who was recently in the hospital from February 01 to February 06 with worsening shortness of breath. She had dialysis as well as steroids to help with the patient's breathing. The patient was fine up until last night around midnight when she became suddenly short of breath and currently now on BiPAP and is sleepy and tired. PAST MEDICAL HISTORY: Paroxysmal AFib; anemia of end-stage renal disease; COPD; active tobacco use; type 2 diabetes; severe mitral regurgitation, hyperlipidemia; end-stage renal disease on dialysis Tuesdays, , and Saturdays; hypertension; and mitral regurgitation. PAST SURGICAL HISTORY: Appendectomy, cholecystectomy, cataract surgery, fistula placement, and hysterectomy. FAMILY HISTORY: Significant for diabetes. SOCIAL HISTORY: Active smoker. No drugs. No alcohol. CURRENT MEDICATIONS: Coumadin 7.5 mg daily, Norvasc 10 mg a day, clonidine 0.1 mg p.o. b.i.d., Advair inhaler twice a day, Lasix 40 mg daily, Lantus 26 units subQ daily, Cozaar 100 mg daily, Lopressor 25 mg p.o. b.i.d., Nephrocaps daily, Valtrex 1 gram daily, and PhosLo 2 p.o. t.i.d. with meals. REVIEW OF SYSTEMS: Positive shortness of breath. Positive right upper quadrant pain, which she describes as cramping. Denies chest pain. No fevers or chills. She has been restricting her fluids well. No diarrhea or constipation. No rash or itching. Main complaint was sudden shortness of breath. All other review of systems otherwise negative. PHYSICAL EXAMINATION: VITAL SIGNS: Temperature 36.6, pulse 58, respiratory rate is 21, blood pressure 187/80 and satting 98% on BiPAP. GENERAL: Awake, alert, and oriented x3. EYES: No scleral icterus. ENT: Moist mucous membranes. NECK: Supple. PULMONARY: Decreased breath sounds at the bases. CARDIAC: Regular rate and rhythm. ABDOMEN: Tenderness in the right upper quadrant. Bowel sounds positive. EXTREMITIES: No clubbing, cyanosis or edema. NEUROLOGICALLY: Nonfocal. DERMATOLOGIC: No rash or ulcers noted. LABORATORY DATA: White count 17,000, H&H 11 and 34, and platelet count is 205. INR is 1.4. Sodium level is 140, potassium 4.4, chloride is 101, bicarb is 25, BUN is 94, creatinine is 12, glucose 177, calcium is 8.3 and magnesium is 2.4. T-bili is 1.6. AST 45, ALT 85, and alkaline phosphatase 119. Albumin is 4. Troponin is negative. Chest x-ray shows congestive heart failure pattern as well as bibasilar airspace opacities likely representing focal edema. ASSESSMENT: 1. End-stage renal disease. Today is her regular dialysis treatment. We will attempt dialysis today; however, I have not been successful with aggressively removing fluid on this patient. However, there are findings of congestive heart failure on chest x-ray. We will check BNP as well to assess volume status as well as uric acid level. We will use albumin on dialysis to help optimize fluid removal. 2. Anemia of renal failure. Hemoglobin levels are stable at 11.3. We will hold off on giving more Procrit at this time. 3. Renal osteodystrophy. We will continue the patient's phosphate binders and check phosphorus levels intermittently throughout her hospitalization. 4. Gastrointestinal. The patient did have gallbladder removed. She has some tenderness in the right upper quadrant, which she normally gets with cramping; however, LFTs are mildly elevated. Question worthwhile to do a right upper quadrant ultrasound. We will defer to the primary hospitalist. Could be passive congestion. 5. Pulmonology: The patient does have chronic obstructive pulmonary disease. Actively smokes. She does have fluid in the lungs, but question if the shortness of breath may be multifactorial in nature. Currently, on Advair inhaler. Did respond favorably to the steroids before, perhaps may benefit from another short burst of prednisone to help with breathing. The patient also had mitral regurgitation in the past; there was an echo done in October of this year that showed moderate concentric left ventricular hypertrophy, EF greater than 70%, moderate aortic sclerosis, and moderate to severe mitral regurgitation. Question if shortness of breath may be more consequence of the moderate to severe mitral regurgitation. Troponins likely will be negative, but perhaps the valvular disease may be contributing to patient's shortness of breath. Question worthwhile obtaining cardiology opinion and/or repeating echo. I appreciate the consultation. OSEAS
[2017-02-08] MEDS ORDERED: ALBUMIN HUMAN 25% 12.5 GM/50 ML VIAL IV ONE ×2 (08:00→11:15)
[2017-02-08] MEDS: INCRUSE ELLIPTA~ORDER AWAITING ACTION SCH ×3 (08:00→23:41)
[2017-02-08] MEDS: LACTOBACILLUS ACIDOPHILUS (FLORANEX) TAB PO SCH (09:00)
[2017-02-08] MEDS: FLUTICASONE/SALMETEROL 250/50 (ADVAIR) 14 PUFF/1 INHALER INH SCH ×2 (09:26→22:09)
[2017-02-08] MEDS: PrednisoLONE ACET 1% OP SUSP 5 ML BTL OPL SCH (09:26)
[2017-02-08] MEDS: INSULIN GLARGINE SOLOSTAR 100 UNITS/ML 3 ML PEN SC SCH (09:50)
[2017-02-08] MEDS ORDERED: PERFLUTREN LIPID MICROSPHERE (DEFINITY) IV ONE (09:52)
[2017-02-08] MEDS ORDERED: MoRPHine SULFATE 2 MG/ML CARP IV STA (10:34)
--- NOTE | 2017-02-08 11:46 | ECHOCARDIOGRAM REPORT ---
*NOTICE TO RECEIVING LIBERTARIAN AGENCY This information is strictly Confidential and protected under [place] law. [place] law prohibits you from making any further disclosure of this information unless further disclosure is expressly permitted by the written consent of the person to whom it pertains or is authorized by law. A general authorization for the release of medical or other information is not sufficient for this purpose. Hospital accepts no responsibility if the information is made available to any other person, INCLUDING THE PATIENT. Interpretation Summary * Name: VALERIA URIAS Study Date: 02/08/2017 09:20 AM BP: 135/135 mmHg * Patient Location: .2T\S\S237\S\1 HR: 74 * : 1945 (M/d/yyyy) Gender: Female Height: 65 in * Age: 71 yrs Ethnicity: CA Weight: 227 lb * Ordering Physician: Rashaad Lopez * Referring Physician: Self, Referred * Performed By: Daniella Deleon RDCS * * Reason For Study: Valvular Heart Disease * BSA: 2.1 m2 * -- Conclusions -- * No significant change compared to previous study of 10/26/16. * Normal LV chamber size with moderate concentric LVH. * Normal LV systolic function, EF 65-70%. * No segmental left ventricular wall motion abnormalities are noted. * Grade II diastolic dysfunction. * Aortic valve sclerosis moderate, without significant aortic valvular stenosis. * There is heavy focal calcification of the posterior mitral valve leaflet and annulus. There is moderate to severe mitral regurgitation. The mitral regurgitant jet is eccentrically directed. * Moderate biatrial enlargement. * Pulmonary hypertension is present with a PASP of 46 mmHg assuming a RA pressure of 8 mmHg. Procedure Details * A complete two-dimensional transthoracic echocardiogram was performed (2D, M-mode, Doppler and color flow Doppler). * The study was technically difficult. * The study was technically difficult, but visualization was adequate with the administration of Definity ultrasound contrast. * There were technical limitations due to patient'sbody habitus * A contrast injection of Definity was performed to improve assessment of LV function. * Contrast was injected into an intravenous site in the right arm. * One vial of Definity ultrasound contrast was diluted in normal saline to a total volume of 10 ml. A total of '2' ml of solution was administered during imaging. * Lot # [id number] of Definity utilized for procedure. * Expiration date 1DEC18. * The attending nurse who injected the contrast agent was Lina Casas RN. Left Ventricle * The left ventricle is normal in size. * There is moderate concentric left ventricular hypertrophy. * Ejection Fraction = 65-70%. * Left ventricular systolic function is normal. * No segmental left ventricular wall motion abnormalities are noted. * The left ventricular wall motion is normal. Right Ventricle * The right ventricular cavity size is normal (basal dimension <4.2 cm in right ventricular apical 4-chamber view). * The right ventricular systolic function is normal as assessed by tricuspid annular plane systolic excursion (TAPSE) (normal >1.5 cm). Atria * The left atrium is moderately dilated. * The right atrium is moderately dilated. * No ASD detected; PFO is not assessed. Mitral Valve * There is heavy focal calcification of the posterior mitral valve leaflet and annulus. * There is no mitral valve stenosis. * There is moderate to severe mitral regurgitation. * The mitral regurgitant jet is eccentrically directed. Tricuspid Valve * The tricuspid valve is normal in structure and function. Aortic Valve * The aortic valve is trileaflet. * Aortic valve sclerosis moderate, without significant aortic valvular stenosis. * There is no significant aortic regurgitation. Pulmonic Valve * The pulmonary valve is not well seen, but the Doppler examination is normal without significant regurgitation or stenosis. Great Vessels * The aortic root is normal size. Pericardium/Pleural * There is no pericardial effusion. Left Ventricular Diastolic Function * Diastolic dysfunction, Grade II (pseudonormalization pattern). MMode 2D Measurements and Calculations IVSd 1.6 cm IVSs 1.7 cm LVIDd 5.3 cm LVIDs 2.8 cm LVPWd 1.3 cm LVPWs 2.1 cm IVS/LVPW 1.2 FS 47.0 % EDV(Teich) 136.6 ml ESV(Teich) 30.0 ml EF(Teich) 78.0 % EDV(cubed) 150.7 ml ESV(cubed) 22.4 ml EF(cubed) 85.2 % % IVS thick 4.6 % % LVPW thick 56.4 % LV mass(C)d 336.1 grams LV mass(C)dI 161.0 grams/m\S\2 LV mass(C)s 212.9 grams LV mass(C)sI 102.0 grams/m\S\2 SV(Teich) 106.6 ml SI(Teich) 51.1 ml/m\S\2 SV(cubed) 128.3 ml SI(cubed) 61.5 ml/m\S\2 Ao root diam 2.8 cm Ao root area 6.2 cm\S\2 ACS 2.1 cm LA dimension 5.1 cm LA/Ao 1.8 LVOT diam 2.0 cm LVOT area 3.2 cm\S\2 LVAd ap4 45.1 cm\S\2 LVLd ap4 8.8 cm EDV(MOD-sp4) 191.8 ml EDV(sp4-el) 196.2 ml LVAs ap4 20.2 cm\S\2 LVLs ap4 6.4 cm ESV(MOD-sp4) 52.6 ml ESV(sp4-el) 54.1 ml EF(MOD-sp4) 72.6 % EF(sp4-el) 72.4 % LVAd ap2 29.0 cm\S\2 LVLd ap2 6.4 cm EDV(MOD-sp2) 108.1 ml EDV(sp2-el) 111.0 ml LVAs ap2 17.1 cm\S\2 LVLs ap2 6.0 cm ESV(MOD-sp2) 39.1 ml ESV(sp2-el) 41.4 ml EF(MOD-sp2) 63.8 % EF(sp2-el) 62.7 % LVLd %diff -37.40 % EDV(MOD-bp) 167.3 ml LVLs %diff -6.74 % ESV(MOD-bp) 44.8 ml EF(MOD-bp) 73.2 % SV(MOD-sp4) 139.1 ml SI(MOD-sp4) 66.7 ml/m\S\2 SV(MOD-sp2) 68.9 ml SI(MOD-sp2) 33.0 ml/m\S\2 SV(MOD-bp) 122.4 ml SI(MOD-bp) 58.6 ml/m\S\2 SV(sp4-el) 142.1 ml SI(sp4-el) 68.1 ml/m\S\2 SV(sp2-el) 69.6 ml SI(sp2-el) 33.3 ml/m\S\2 Doppler Measurements and Calculations MV E max adry 145.6 cm/sec MV A max adry 87.4 cm/sec MV E/A 1.7 MV V2 max 166.5 cm/sec MV max PG 11.1 mmHg MV V2 mean 87.5 cm/sec MV mean PG 3.6 mmHg MV V2 VTI 49.0 cm MV P1/2t max adry 180.3 cm/sec MV P1/2t 67.8 msec MVA(P1/2t) 3.2 cm\S\2 MV dec slope 778.4 cm/sec\S\2 MV dec time 0.17 sec Ao V2 max 153.1 cm/sec Ao max PG 9.4 mmHg Ao max PG (full) 2.5 mmHg GREGORIO(V,A) 2.7 cm\S\2 GREGORIO(V,D) 2.7 cm\S\2 LV V1 max PG 6.9 mmHg LV V1 max 131.1 cm/sec MR max adry 657.1 cm/sec MR max PG 173.3 mmHg MR mean adry 505.0 cm/sec MR mean PG 112.4 mmHg MR VTI 218.1 cm MR PISA 3.6 cm\S\2 MR PISA radius 0.76 cm PA V2 max 107.8 cm/sec PA max PG 4.7 mmHg TR max adry 308.7 cm/sec
[2017-02-08] MEDS ORDERED: HYDROmorphone INJ 1 MG/ML SYR IV STA (12:03)
[2017-02-08 12:13] LABS: ISTAT ALLEN TEST Pass; ISTAT ARTERIAL BLOOD GAS HCO3 25 meq/L (19-24); ISTAT ARTERIAL BLOOD GAS PCO2 34 mmHg (35-46); ISTAT ARTERIAL BLOOD GAS PO2 56 mmHg (80-95); ISTAT ARTERIAL BLOOD GAS pH 7.48 (7.35-7.45); ISTAT CARBON DIOXIDE 26 mEq/l (24-31); ISTAT DELIVERY SYSTEM Cannula; ISTAT SITE R Radial
[2017-02-08] MEDS ORDERED: OPTIRAY 320 IV PRN (12:15)
--- NOTE | 2017-02-08 12:59 | CARDIOLOGY CONSULTATION ---
DATE OF CONSULTATION: 02/08/2017 CONSULTATION REQUESTED BY: Dr. Chaudhry. REASON FOR CONSULTATION: Acute decompensated heart failure. HISTORY OF PRESENT ILLNESS: Ms. Velasco is a very pleasant yet medically complex 71-year-old woman who presented to [facility] early in the a.m. of 02/08/2017 with a complaint of shortness of breath. The patient was recently hospitalized at [facility] from February 01 to the for an episode of shortness of breath, where she was treated for COPD exacerbation. She has been home for 2 days and states that since being home, she has been feeling well and been compliant with all of her medications. Then early in the morning of 02/08/2017, she woke up abruptly, feeling very short of breath. She states that she all of a sudden felt that she could not catch her breath. She became concerned and EMS was called. Upon arrival, she was found to be in significant distress and she was placed on BiPAP. She was seen in the Emergency Department. Chest x-ray was read as possible CHF with volume overload. She was given a dose of diuretics. She was seen by nephrology and set up for her normally scheduled hemodialysis treatment today. She was then admitted to telemetry. During my evaluation, the patient was also complaining of severe right-sided chest pain. She described it as sharp and stabbing in nature, located underneath her right breast. It was worse with deep inhalation, motion or palpitation of the area. She is not quite sure when this started, but states that it started occurring sometime after she became short of breath. She states that it is very severe and she is unable to really construct on much else besides her pain right now. Her BiPAP has been discontinued and she has been placed on nasal cannula. She is currently receiving hemodialysis. PAST SURGICAL HISTORY: 1. AV fistula placement. 2. Colonoscopy. 3. Sinus surgery. 4. Cataract surgery. 5. Cholecystectomy. 6. Appendectomy. 7. Left oophorectomy. 8. Total abdominal hysterectomy. MEDICAL ILLNESSES: 1. Paroxysmal atrial fibrillation, on chronic Coumadin therapy. 2. End-stage renal disease, on hemodialysis. 3. Anemia of chronic disease, on Procrit therapy. 4. Hypertension. 5. Moderate to severe mitral regurgitation. 6. Obesity. 7. Ongoing tobacco abuse. 8. Diabetes. 9. Diastolic dysfunction with normal LV systolic function. FAMILY HISTORY: Noncontributory. SOCIAL HISTORY: The patient is a lifelong smoker. She continues to smoke. She denies any alcohol or recreational drug use. She is . She lives at home by herself. She is retired. REVIEW OF SYSTEMS: As per HPI. All other review of systems reviewed and negative at this time. ALLERGIES: No known drug allergies. MEDICATIONS AN OUTPATIENT: 1. Amlodipine 10 mg daily. 2. Clonidine 0.1 mg b.i.d. 3. Lasix 40 mg p.o. daily. 4. Losartan 100 mg daily. 5. Medrol Dosepak as directed. 6. Metoprolol tartrate 25 mg b.i.d. 7. Coumadin 5-10 mg daily as directed by the Coumadin clinic. 8. Valtrex daily. 9. Insulin as directed. 10. Advair b.i.d. 11. PhosLo 3 times a day with meals. PHYSICAL EXAMINATION: VITALS: Temperature 36.6, pulse 63, respiratory rate 18, and blood pressure 179/73. GENERAL: Awake, alert, and oriented x3 with moderate distress secondary to shortness of breath and chest pain. HEENT: Normocephalic and atraumatic. Pupils equal, round, and reactive to light and accommodation. Extraocular muscles intact. Anicteric sclerae. Moist mucous membranes. NECK: No JVD and no bruit. CARDIOVASCULAR: Regular, but distant. Unable to appreciate murmurs, rubs or gallops. PULMONARY: Poor air movement diffusely with scattered wheezing and rhonchi. No significant rales. ABDOMEN: Bowel sounds x4. Soft. No rebound, guarding, or tenderness. No organomegaly. No bruits present. EXTREMITIES: No clubbing, cyanosis or edema. +1 pedal pulses bilaterally. SKIN: Warm and dry. MUSCULOSKELETAL: Slight palpation of her right 10th intercostal space midclavicular line underneath her right breast was able to reproduce her pain somewhat. A 2D echocardiogram was read as no significant change compared to previous study of October 2016. Normal LV chamber size with moderate concentric LVH, normal LV systolic function, EF 65%-70%, no segmental left ventricle wall motion abnormalities were noted, grade 2 diastolic dysfunction, moderate aortic valve sclerosis without stenosis, heavy focal calcification of the posterior mitral valve leaflet and annulus, moderate to severe mitral regurgitation with an eccentric jet, and moderate biatrial enlargement. Pulmonary hypertension is present with a PA systolic pressure of 46 mmHg, assuming a right atrial pressure of 8 mmHg. A 12-lead EKG performed in the Emergency Department independently reviewed at this time shows atrial fibrillation at 111 beats per minute, normal axis, normal intervals, poor R-wave progression across the precordium with nonspecific flattened T waves in the lateral leads. Compared to previous study of February 01, atrial fibrillation has replaced with normal sinus rhythm and lateral T-wave flattening is new. LABORATORY STUDIES OF SIGNIFICANCE: Sodium 140, potassium 4.4, BUN 94, and creatinine of 12. CPK of 77. Troponin of less than 0.03. Hemoglobin 11.3. IMPRESSION: 1. Volume overload. 2. Questionable exacerbation of chronic obstructive pulmonary disease. 3. Concern for pulmonary embolism. 4. End-stage renal disease, on hemodialysis. 5. Grade 2 diastolic dysfunction with normal left ventricular systolic function without regional wall motion abnormalities. 6. Moderate to severe mitral regurgitation, unchanged. 7. Chronic obstructive pulmonary disease with ongoing tobacco abuse. RECOMMENDATIONS: It was my pleasure to see Mrs. Velasco in consultation today. Given the fact that she has not examined as significantly volume overloaded along with the fact that she has not made significant urine, my concern would be that she may also be having a pulmonary embolism at this time given the fact that her INRs have been subtherapeutic for a quite some time. So, I will ask our pulmonary colleagues to evaluate. She will likely also benefit from redosing steroids and possible atypical antibiotic coverage given her COPD and a CTA of the chest to rule out PE should be considered should her symptoms not significantly resolve after hemodialysis. I have discussed this with nephrology and they have no contraindication to the dye load. Otherwise, she should be restarted on heparin drip until her goal INR of 2-3 is achieved. She is going to have atrial fibrillation at this time, but we will continue her p.o. metoprolol and further adjustments can be made as necessary. Thank you very much for allowing me to participate in the care of your patient.
--- NOTE | 2017-02-08 13:56 | DIAGNOSTIC IMAGING REPORT ---
CHEST COMBO ANGIO DISSECTION CLINICAL HISTORY: Chest and abdominal pain. Possible aortic dissection. Possible pulmonary embolism. COMPARISON STUDY: Chest x-ray dated 02/08/2017 FINDINGS: Unenhanced images were obtained through the chest. The patient was then scanned in a dynamic helical fashion during the intravenous administration of 120 cc Optiray 320. MIP imaging was performed. On noncontrast images, there is no evidence of acute aortic hematoma. There is an 8 mm right lobe thyroid nodule. There is no evidence of aortic aneurysm. There are coronary artery calcifications. There are notable flaps to indicate an aortic dissection. The study was timed for evaluation of aortic dissection. There are no central pulmonary artery filling defects to indicate acute pulmonary embolism. Evaluation of the subsegmental pulmonary artery branches is somewhat limited, but no definite emboli are evident. There are bilateral pleural effusions. There are dependent airspace opacities, likely atelectatic. There is mild septal edema. There is respiratory motion artifact. There is a 1 cm pleural-based opacity within the right upper lobe, likely representing focal atelectatic change. There is a 3 mm right middle lobe pulmonary nodule. Also evident is a 4 mm subpleural right middle lobe pulmonary nodule. There is mediastinal lymphadenopathy. There is a 17 mm precarinal lymph node. There is a 12 mm right paratracheal lymph node. There is no pathologic hilar or axillary lymphadenopathy. Images of the upper abdomen reveal a 25 mm left adrenal nodule. This has a Hounsfield attenuation value of 9 on the noncontrast images and therefore likely represents an adenoma. There are multiple nonspecific hypodense splenic lesions the largest of which measures 35 mm. No destructive skeletal lesions are visualized. IMPRESSION: 1. No evidence of aortic aneurysm or dissection 2. No evidence of acute pulmonary embolism 3. Septal edema and bilateral pleural effusions suggesting congestive heart failure 4. Bibasilar dependent airspace opacities likely atelectatic 5. Subcentimeter pulmonary nodules. In a low risk patient, no further follow-up is indicated 6. 25 mm left adrenal adenoma 7. Nonspecific hypodense splenic lesions, the largest of which measures 35 mm Electronically signed by: Deepak Terry M.D. 02/08/2017 1:55 PM Dictated Date/Time: 02/08/2017 1:46 PM
--- NOTE | 2017-02-08 14:07 | DIAGNOSTIC IMAGING REPORT ---
ABDOMEN AND PELVIS CTA HISTORY: Generalized abdominal pain. Evaluate for aortic dissection. TECHNIQUE: Multiaxial CT images of the abdomen and pelvis performed following the use of intravenous contrast to evaluate the aorta. Maximal intensity projection images are also obtained. COMPARISON STUDY: Abdomen and pelvis CT 10/04/2015. FINDINGS: Small bilateral pleural effusions. Bilateral lower lobe consolidation posteriorly is nonspecific but favors atelectasis from the pleural effusions. Normal caliber abdominal aorta with no evidence for dissection. The common and external iliac arteries are patent. Multifocal moderate stenosis within the branches of the bilateral internal iliac arteries. Moderate calcified plaque throughout the abdominal aorta, iliac arteries, and major mesenteric vessels. No significant stenosis within the celiac arteries. Focal high-grade stenosis at the distal left renal artery up to 90%. Mild stenosis throughout the mid to distal right renal artery. Mild focal stenosis of approximately 50% within the mid to distal superior mesenteric artery. Focal high-grade stenosis of approximately 90% within the mid inferior mesenteric artery best seen on image 247. Stable hypodense lesions within the spleen with the largest measuring 3 cm. Cholecystectomy. The liver, right adrenal gland are unremarkable. A 2.5 cm hyperdense lesion within the right kidney remains unchanged in size. This is incompletely characterize but favors a hyperdense cyst. No hydronephrosis. Mild bilateral cortical renal atrophy. The bladder is unremarkable. The uterus is surgically absent. Stable left adrenal gland nodule. Near complete resolution of the cystic lesion within the tail the pancreas which measures 6 mm. No new pancreatic lesions identified. Mild nonspecific fat stranding surrounding the second portion of the duodenum. Colonic and jejunal diverticulosis. No evidence for bowel obstruction. IMPRESSION: 1. Normal caliber abdominal aorta with no evidence for dissection. 2. Multifocal stenosis within the mesenteric and renal arteries as described above. 3. Mild fat stranding surrounding the second portion of the duodenum. This raises the possibility of a duodenitis versus peptic ulcer disease. This could also be related to edema from cardiac congestion of the liver. 4. Small bilateral pleural effusions. 5. Significant decrease in size in the cystic lesion within the tail the pancreas. Electronically signed by: Dave Castañeda M.D. 02/08/2017 2:06 PM Dictated Date/Time: 02/08/2017 1:45 PM
--- NOTE | 2017-02-08 14:09 | Pulmonary Consultation ---
History General Date of Service: Feb 08, 2017. Stated Complaint: Respiratory Failure, Acute HPI Patient is a 71 yo female with history of COPD, CHF, ESRD on hemodialysis, Paroxysmal Afib, DM2, chronic respiratory failure, and multiple other chronic problems as listed below who presented to the ED with concerns of increasing SOB. The patient was recently admitted to [facility] and was discharged 2 days prior to current admission for what was thought to be a COPD exacerbation and SOB. The patient was admitted to telemetry. Since admission, the patient has had increased SOB and is having right-sided/midline chest/upper abdominal pain today which is radiating into her back. She describes the pain as "cramping", and states that it started since admission and has not subsided at all. It is worse with movement, and nothing makes it better. She denies nausea, vomiting, diarrhea, headache, or fever. She does feel that the pain is also slightly worse with deep inspiration. Studies since admission were reviewed: MRSA nasal swab negative. CXR viewed by me and showed congestive heart failure patter & bibasal airspace opacities. Similar to previous scan. Echo completed by Dr. Lopez noted: EF 65-70%, no segmental left ventricular wall motion abnormality, grade II diastolic dysfunction, Aortic sclerosis, and heavy calcification on the posterior mitral valve leaflet and annulus. Labs reviewed upon admission: WBC 17.22 Hgb 11.3 BNP 12,007 Creatinine 12.00/BUN 94 Total bilirubin 1.6 Direct bilirubin 0.3 AST45/ALT 85 Alk Phos 119 Procalcitonin 0.77 I did discuss this patient with Dr. Lopez, Dr. Ibrahim, and Dr. Cabrera. Overnight pulse oximetry study from 2014 showed longest desaturation overnight of 3 minutes. She had an SaO2 <90% only 2% of the time. Historian: patient Review of Systems Constitutional: denies: fever Eyes: denies: blurred vision ENT: denies: loss of hearing Cardiovascular: reports: chest pain (right sided/midline today- started during admission) Respiratory: reports: cough, shortness of breath, VÁSQUEZ, other (worsened since pain began) Gastrointestinal: denies: nausea, vomiting Genitourinary - Female: reports: other (does not make much urine/dialysis patient) Musculoskeletal: reports: back pain (pain radiating into back ), denies: joint pain Integumentary: denies: rash Neurologic: denies: headache All Other Symptoms All Other Systems: Reviewed and Negative Past Medical History Past Medical History: Medical Problems: (1) A-fib (2) Adrenal adenoma (3) Anemia of chronic disease (4) Atrial fibrillation with RVR (5) AV fistula (6) CHF (congestive heart failure) (7) Chronic respiratory failure (8) COPD, moderate (9) DM type 2 (diabetes mellitus, type 2) (10) Dyslipidemia (11) ESRD (end stage renal disease) on dialysis (12) H/O cardiovascular stress test (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 (14) History of Helicobacter pylori infection (15) Hypertension Nos (16) Moderate mitral regurgitation (17) Obesity (18) Osteoarthritis (19) Pancreatic cyst (20) Psoriasis (21) Renal cyst (22) Respiratory failure, acute (23) SOB (shortness of breath) Surgical Problems: (1) H/O colonoscopy (2) H/O nasal polypectomy (3) History of cataract surgery (4) S/P appendectomy (5) S/P cholecystectomy (6) S/P left oophorectomy (7) S/P ASH (total abdominal hysterectomy) Past Medical History: other Past Surgical History: other Family History Diabetes mellitus FATHER MOTHER BROTHER FH: cancer BROTHER FH: heart disease FATHER Hypertension BROTHER Kidney disease BROTHER Social History Hx Tobacco Use In Past Year?: Yes Smoking Status: Current Every Day Smoker Marital status: Housing status: lives alone Occupational Status: retired Immunizations History of Influenza Vaccine: Yes Influenza Vaccine Date: Dec 26, 2014 History of Tetanus Vaccine?: Yes Tetanus Immunization Date: August 04, 2010 History of Pneumococcal: Yes Pneumococcal Date: Feb 24, 2015 History of MDRO History of MDRO: No Allergies Coded Allergies: No Known Allergies (Verified , 02/08/17) Current Medications Reported Home Medications Medications Dose Route/Sig Max Daily Dose Days Date Category Dose Instructions Medrol Dosepak (Methylprednisolone) 4 Mg Pedro 1 Pkt PO UD 6 02/06/17 Rx Warfarin Sodium 5 Mg Tab 5-10 Mg PO DAILY 02/01/17 Reported Lactobacillus 1 Tab Tab 1 Tab PO UD 11/30/16 Reported Lopressor (Metoprolol Tartrate) 25 Mg Tab 25 Mg PO BID 11/30/16 [address] [facility] Mucus D Extended Rele 60-600 mg (Pseudoephedrine-Guaifenesin) 1 Tab Tab 1 Tab PO Q12 PRN 10/26/16 Reported Pred Forte 1% Oph (Prednisolone Acetate (Ophth)) 1 % Neena 1 Drops OPL DAILY 10/26/16 Reported Duoneb (Ipratropium-Albuterol) 3 Ml Nebu 1 Treatment INH QID PRN 10/26/16 Reported Apap (Acetaminophen) 325 Mg Tab 650 Mg PO Q6 PRN 10/26/16 Reported Valtrex (Valacyclovir Hcl) 1 Gm Tab 1,000 Mg PO DAILY 10/26/16 Reported Nephrocaps (Vitamin B Complex/Vit C/Folic Acid) Cap 1 Cap PO DAILY 10/26/16 Reported Phoslo 667 Mg (Calcium Acetate) 667 Mg Cap 2 Cap PO TIDM 10/26/16 Reported Cozaar (Losartan Potassium) 100 Mg Tab 100 Mg PO DAILY 10/26/16 Reported Incruse Ellipta (Umeclidinium Amoret) 62.5 Mcg/Inh Inh 1 Puff INH DAILY 10/26/16 Reported Lantus (Insulin Glargine) 100 Unit/Ml Inj 26 Units SC QAM 07/13/16 Reported Furosemide 40 Mg Tab 40 Mg PO DAILY 05/01/16 Reported Kqqykmxgu-Vatodtqaar-Sxbn 2.5-2.5 % (Lidocaine-Prilocaine) 1 Cre Cre 1 Appln TOP UD PRN 05/01/16 Reported APPLY SMALL AMT TO ACCESS SITE 1-2 HOURS BEFORE DIALYSIS. COVER WITH SARAN WRAP Vitamin D 29864 Unit (Ergocalciferol) 50,000 Unit Cap 50,000 Unit PO MONTHLY 05/01/16 Reported 9th Procrit (Epoetin Hakan) 10,000 Units Inj 05/01/16 Reported per dialysis clinic Ventolin Hfa (Albuterol) 200 Puffs/60660 Mcg Aers 2 Puffs INH Q4 PRN 05/01/16 Reported Cyanocobalamin 1,000 Mcg/Ml Inj 1,000 Mcg IM MONTHLY 04/12/16 Reported Oxygen Gas 2.5 Liters NA CONTINOUS 05/15/15 Reported Advair Diskus 250/50 60 Dose (Fluticasone Prop/Salmeterol) 1 Ea Aerp 2 Puff INH BID 05/15/15 Reported Catapres (Clonidine Hcl) 0.1 Mg Tab 0.1 Mg PO BID 05/15/15 Reported Novolog Flexpen (Insulin Aspart) 100 Units/Ml Inj 2-3 Units SQ TIDM 04/01/15 Reported TAKES PER SLIDING SCALE Norvasc (Amlodipine Besylate) 10 Mg Tab 10 Mg PO QAM 09/08/13 Reported Physical Physical Exam Vital Signs: Date Time Temp Pulse Resp B/P (MAP) Pulse Ox O2 Delivery O2 Flow Rate FiO2 02/08/17 11:00 64 174/73 02/08/17 10:45 63 179/81 02/08/17 10:30 63 161/90 02/08/17 10:23 62 173/70 02/08/17 10:15 36.6 63 179/73 (108) 02/08/17 07:59 36.8 74 18 135/63 (87) 96 02/08/17 07:18 64 97 02/08/17 07:16 64 18 97 BiPAP/CPAP 45 02/08/17 05:55 98 02/08/17 05:17 36.6 58 21 187/80 100 BiPAP 02/08/17 05:01 168/81 02/08/17 04:39 62 13 100 CPAP 02/08/17 04:32 175/79 02/08/17 04:09 57 18 100 CPAP 02/08/17 04:04 56 18 100 CPAP 02/08/17 04:01 146/65 02/08/17 03:34 58 19 100 CPAP 02/08/17 03:31 142/65 02/08/17 03:04 62 23 100 CPAP 02/08/17 03:01 161/72 02/08/17 02:34 68 19 100 CPAP 02/08/17 02:31 179/86 02/08/17 02:21 36.8 75 20 193/74 100 CPAP 02/08/17 02:21 100 CPAP 45 02/08/17 02:21 72 100 02/08/17 02:19 193/74 02/08/17 02:17 201/107 02/08/17 02:14 71 General Appearance: moderate distress, obese Head: NORMOCEPHALIC, ATRAUMATIC Eyes: EOMI, SCLERAE NORMAL Neck: TRACHEA MIDLINE, NO STRIDOR, SUPPLE Respiratory: NO RESPIRATORY DISTRESS, wheezing (mild wheeze throughout lungs) Cardiovasular: REGULAR RATE/RHYTHM Abdomen: other (tenderness in the epigastric/right upper quadrant region which is reproducable on exam. No notable lesions/rash. No surrounding erythema. ) Lower Extremities: edema (trace to 1+ pitting edema b/l LE) Neuro: ALERT, NORMAL SPEECH Psychiatric: NORMAL AFFECT Diagnostics Labs Results Past 24 Hours Test 02/08/17 02:12 02/08/17 02:19 02/08/17 02:21 02/08/17 06:50 Range/Units White Blood Count 17.22 4.8-10.8 K/uL Red Blood Count 3.08 4.2-5.4 M/uL Hemoglobin 11.3 12.0-16.0 g/dL Hematocrit 34.3 37-47 % Mean Corpuscular Volume 111.4 80-100 fL Mean Corpuscular Hemoglobin 36.7 25-34 pg Mean Corpuscular Hemoglobin Concent 32.9 32-36 g/dl Platelet Count 205 130-400 K/uL Mean Platelet Volume 10.4 7.4-10.4 fL Neutrophils (%) (Auto) 88.4 % Lymphocytes (%) (Auto) 5.1 % Monocytes (%) (Auto) 4.5 % Eosinophils (%) (Auto) 1.1 % Basophils (%) (Auto) 0.2 % Neutrophils # (Auto) 15.23 1.4-6.5 K/uL Lymphocytes # (Auto) 0.87 1.2-3.4 K/uL Monocytes # (Auto) 0.77 0.11-0.59 K/uL Eosinophils # (Auto) 0.19 0-0.5 K/uL Basophils # (Auto) 0.04 0-0.2 K/uL RDW Standard Deviation 68.3 36.4-46.3 fL RDW Coefficient of Variation 17.2 11.5-14.5 % Immature Granulocyte % (Auto) 0.7 % Immature Granulocyte # (Auto) 0.12 0.00-0.02 K/uL Hypersegmented Polys OCCASIONAL Polychromasia 1+ Macrocytosis PRESENT Ovalocytes 1+ Prothrombin Time 15.0 9.0-12.0 SECONDS Prothromb Time International Ratio 1.4 0.9-1.1 Activated Partial Thromboplast Time 28.0 21.0-31.0 SECONDS Partial Thromboplastin Ratio 1.1 Sodium Level 140 136-145 mmol/L Potassium Level 4.4 3.5-5.1 mmol/L Chloride Level 101 98-107 mmol/L Carbon Dioxide Level 25 21-32 mmol/L Anion Gap 14.0 3-11 mmol/L Blood Urea Nitrogen 94 7-18 mg/dl Creatinine 12.00 0.60-1.20 mg/dl Est Creatinine Clear Calc Drug Dose 5.5 ml/min Estimated GFR () 3.3 Estimated GFR (Non- 2.8 BUN/Creatinine Ratio 7.8 10-20 Random Glucose 177 70-99 mg/dl Calcium Level 8.3 8.5-10.1 mg/dl Magnesium Level 2.4 1.8-2.4 mg/dl Total Bilirubin 1.6 0.2-1 mg/dl Direct Bilirubin 0.3 0-0.2 mg/dl Aspartate Amino Transf (AST/SGOT) 45 15-37 U/L Alanine Aminotransferase (ALT/SGPT) 85 12-78 U/L Alkaline Phosphatase 119 45-117 U/L Total Creatine Kinase 77 26-192 U/L Creatine Kinase MB 2.2 0.5-3.6 ng/ml Creatine Kinase MB Ratio 2.9 0-3.0 Total Protein 7.4 6.4-8.2 gm/dl Albumin 4.0 3.4-5.0 gm/dl Procalcitonin 0.77 0-0.5 ng/ml Bedside Lactic Acid Venous 0.93 0.90-1.70 mmol/L Bedside Troponin I < 0.030 0-0.045 ng/ml Pro-B-Type Natriuretic Peptide 25353 0-900 pg/ml Microbiology Results 02/08/17 MRSA DNA Surveillance Screen - Final, Complete Specimen Negative for MRSA by DNA Probe Diagnostic Radiology Thoracic ultrasound during exam: Completed with Dr. Ibrahim Showed bilateral pleural effusions. CHEST ONE VIEW PORTABLE CLINICAL HISTORY: SOB COMPARISON STUDY: 02/01/2017 FINDINGS: The heart is enlarged. There is diffuse elevation of the interstitium, likely secondary to congestive failure. Basal airspace opacities likely represent focal edema although a superimposed inflammatory process could appear similar.[ IMPRESSION: Congestive heart failure pattern. Bibasal airspace opacities likely represent focal edema although a superimposed inflammatory process could appear similar EKG Afib with RVR with nonspecific ST abnormality on EKG at 1126 Impression Assessment and Plan Chest/abdominal pain Dyspnea COPD Acute on chronic respiratory failure CHF ESRD on hemodialysis Patient discussed in detail with Dr. Cabrera and Dr. Lopez. Due to patient's current pain in the upper abdomen/right sided chest, recommended CT of the abdomen and CT of the chest to R/O dissection, PE, etc. These were viewed and reviewed with radiology as well. ABG ordered stat. Continue nasal cannula O2 to maintain O2 saturation >94%. Continue BiPAP to help with afterload reduction at this time. There are no signs of COPD exacerbation, therefore do not need continuous BiPAP- her ABG showed hypoxia but no hypercapnia. EKG showed inferior wall changes. Can continue PRN worsening SOB. Otherwise, maintain nasal cannula as above. Continue to monitor heart rate/rhythm. Cardiology following. Continue aggressive diuresis due to possible CHF exacerbation/ volume overload. New bilateral pleural effusion noted on CT scan along with thoracic U/S. Will continue to follow these and consider thoracentesis if no improvement is seen with diuresis. Chest/upper abdominal pain appears to be potentially gastric in origin? Discussed with Dr. Cabrera. Will continue to monitor. Pulmonary will follow. The patient and plan has been reviewed. At this time patient's signs and symptoms are not clinically/radiographically consistent with pulmonary embolism. She does have an underlying diagnosis of COPD but there are no definitive pulmonary function test to define the severity. At this time she does appear to be volume overloaded. Have spoken to the primary team will continue to monitor and help.
[2017-02-08] MEDS: CLONIDINE HCL 0.1 MG TAB PO SCH ×2 (14:22→22:09)
[2017-02-08] MEDS: NEPHROCAPS PO SCH (14:22)
[2017-02-08] MEDS: LOSARTAN POTASSIUM 50 MG TAB PO SCH (14:23)
[2017-02-08] MEDS: METOPROLOL TARTRATE 25 MG TAB PO SCH ×2 (14:23→22:08)
[2017-02-08] MEDS: AMLODIPINE BESYLATE 5 MG TAB PO SCH (14:24)
[2017-02-08] MEDS: HEPARIN 25000 UNIT/ D5W 500 ML (PHARMACY PREPARED) IV PRN ×4 (15:18→22:04)
[2017-02-08] MEDS ORDERED: PANTOprazole INJ 40 MG in SYRINGE 0 ML IV ONE (16:30)
[2017-02-08] MEDS: WARFARIN SOD 7.5 MG TAB PO SCH (18:12)
--- NOTE | 2017-02-08 20:06 | Progress Note ---
Medicine Progress Note Date & Time of Visit: Feb 08, 2017 at 11:55 . Subjective Admitted early this morning with worsening dyspnea. This morning experiencing severe epigastric / right chest discomfort, worse with deep inspiration. Pain worse with inspiration, radiates to her back. . Objective Last 8 Hrs Date Time Temp Pulse Resp B/P (MAP) Pulse Ox O2 Delivery O2 Flow Rate FiO2 02/08/17 19:48 37.5 127 20 122/72 (89) 91 Nasal Cannula 4.0 Humidified Oxygen 02/08/17 19:20 115 18 92 Nasal Cannula 4.0 02/08/17 16:00 96 Nasal Cannula 4.0 02/08/17 15:22 37.2 107 20 129/81 (97) 97 Nasal Cannula 4.0 Humidified Oxygen 02/08/17 15:19 104 18 91 Nasal Cannula 3.5 02/08/17 12:34 96 Nasal Cannula 5.0 02/08/17 12:30 36.6 111 157/93 (114) 02/08/17 12:14 94 Nasal Cannula 3.0 Physical Exam: General- uncomfortable Neck- + JVD Lungs- clear to auscultation Heart- RRR Abdomen- quiet bowel sounds, epigastric tenderness Extremities- 1+ pretibial edema, no calf tenderness Neuro- alert . Laboratory Results: Last 24 Hours Test 02/08/17 02:12 02/08/17 02:19 02/08/17 02:21 02/08/17 06:34 White Blood Count 17.22 K/uL Red Blood Count 3.08 M/uL Hemoglobin 11.3 g/dL Hematocrit 34.3 % Mean Corpuscular Volume 111.4 fL Mean Corpuscular Hemoglobin 36.7 pg Mean Corpuscular Hemoglobin Concent 32.9 g/dl Platelet Count 205 K/uL Mean Platelet Volume 10.4 fL Neutrophils (%) (Auto) 88.4 % Lymphocytes (%) (Auto) 5.1 % Monocytes (%) (Auto) 4.5 % Eosinophils (%) (Auto) 1.1 % Basophils (%) (Auto) 0.2 % Neutrophils # (Auto) 15.23 K/uL Lymphocytes # (Auto) 0.87 K/uL Monocytes # (Auto) 0.77 K/uL Eosinophils # (Auto) 0.19 K/uL Basophils # (Auto) 0.04 K/uL RDW Standard Deviation 68.3 fL RDW Coefficient of Variation 17.2 % Immature Granulocyte % (Auto) 0.7 % Immature Granulocyte # (Auto) 0.12 K/uL Hypersegmented Polys OCCASIONAL Polychromasia 1+ Macrocytosis PRESENT Ovalocytes 1+ Prothrombin Time 15.0 SECONDS Prothromb Time International Ratio 1.4 Activated Partial Thromboplast Time 28.0 SECONDS Partial Thromboplastin Ratio 1.1 Sodium Level 140 mmol/L Potassium Level 4.4 mmol/L Chloride Level 101 mmol/L Carbon Dioxide Level 25 mmol/L Anion Gap 14.0 mmol/L Blood Urea Nitrogen 94 mg/dl Creatinine 12.00 mg/dl Est Creatinine Clear Calc Drug Dose 5.5 ml/min Estimated GFR () 3.3 Estimated GFR (Non- 2.8 BUN/Creatinine Ratio 7.8 Random Glucose 177 mg/dl Calcium Level 8.3 mg/dl Magnesium Level 2.4 mg/dl Total Bilirubin 1.6 mg/dl Direct Bilirubin 0.3 mg/dl Aspartate Amino Transf (AST/SGOT) 45 U/L Alanine Aminotransferase (ALT/SGPT) 85 U/L Alkaline Phosphatase 119 U/L Total Creatine Kinase 77 U/L Creatine Kinase MB 2.2 ng/ml Creatine Kinase MB Ratio 2.9 Total Protein 7.4 gm/dl Albumin 4.0 gm/dl Procalcitonin 0.77 ng/ml Bedside Lactic Acid Venous 0.93 mmol/L Bedside Troponin I < 0.030 ng/ml Bedside Glucose 118 mg/dl Test 02/08/17 06:50 02/08/17 11:50 02/08/17 11:51 02/08/17 16:10 Pro-B-Type Natriuretic Peptide 62144 pg/ml Blood Gas Sample Site R Radial Bedside Blood Gas pH (LAB) 7.48 Bedside Blood Gas pCO2 (LAB) 34 mmHg Bedside Blood Gas pO2 (LAB) 56 mmHg Bedside Blood Gas HCO3 (LAB) 25 meq/L Bedside Blood Gas Total CO2 26 mEq/l Bedside Blood Gas Base Excess (LAB) 1.0 meq/L Bedside Blood Gas O2 Saturation 91.0 % Dar Test Pass Oxygen Delivery Device Cannula Bedside Glucose 95 mg/dl 78 mg/dl Date/Time Source Procedure Growth Status 02/08/17 06:00 Nasal MRSA DNA Surveillance Screen - Final Specimen Negative for MRSA by DNA Probe Complete Assessment & Plan CHEST / ABDOMINAL PAIN Consider PE, aortic dissection, TX. CTA chest, abdomen ordered. Cardiology and Pulmonary consulted. Check serial cardiac markers. CHRONIC LEFT VENTRICULAR DIASTOLIC HEART FAILURE Fluid management via hemodialysis. ATRIAL FIBRILLATION Rate fast at times. Continue metoprolol. Titrate anticoagulants. COPD Continue usual pulmonary meds. CHRONIC HYPOXIC RESPIRATORY FAILURE Secondary to COPD. On home O2. Continue supplemental O2, titrate as necessary. HYPERTENSION Continue metoprolol, amlodipine, losartan, clonidine. CKD V Hemodialysis per Nephrology. DM TYPE 2 Well-controlled at home. Hgb A1C = 6.1 on 02/01/17. Continue Lantus + NovoLog. VTE PROPHYLAXIS SCD's. IV heparin / titrate warfarin. DISPOSITION Expected discharge to home. Family Medicine follow-up with Dr. Armando. . Current Inpatient Medications: Current Inpatient Medications Medications (Trade) Dose Ordered Sig/Joan Route Start Time Stop Time Status Last Admin Dose Admin Acetaminophen (Tylenol Tab) 650 mg Q6 PRN PO 02/08/17 05:15 03/10/17 05:14 Albuterol (Ventolin Hfa Inhaler) 2 puffs Q4 PRN INH 02/08/17 05:15 03/10/17 05:14 Amlodipine Besylate (Norvasc Tab) 10 mg QAM PO 02/08/17 09:00 03/10/17 08:59 02/08/17 14:24 10 MG Calcium Acetate (Phoslo Cap) 1,334 mg TIDM PO 02/08/17 07:30 03/10/17 07:59 02/08/17 14:25 1,334 MG Clonidine HCl (Catapres Tab) 0.1 mg BID PO 02/08/17 09:00 03/10/17 08:59 02/08/17 14:22 0.1 MG Salmeterol Xinafoate/ Fluticasone (Advair Diskus 250/50 Inh) 1 puff BID INH 02/08/17 09:00 03/10/17 08:59 02/08/17 09:26 1 PUFF Furosemide (Lasix Tab) 40 mg DAILY PO 02/08/17 09:00 03/10/17 08:59 Future Hold Insulin Glargine (Lantus Solostar Pen) 26 units QAM SC 02/08/17 09:00 03/10/17 08:59 02/08/17 09:50 26 UNITS Lactobacillus Acidophilus (Floranex Tab) 1 tab DAILY PO 02/08/17 09:00 03/10/17 08:59 Losartan Potassium (coZAAR TAB) 100 mg DAILY PO 02/08/17 09:00 03/10/17 08:59 02/08/17 14:23 100 MG Metoprolol Tartrate (Lopressor Tab) 25 mg BID PO 02/08/17 09:00 03/10/17 08:59 02/08/17 14:23 25 MG Prednisolone Acetate (Pred Forte 1% Oph Susp) 1 drops DAILY OPL 02/08/17 09:00 03/10/17 08:59 02/08/17 09:26 1 DROPS Vitamin B Complex/ Vit C/Folic Acid (Nephrocaps) 1 cap DAILY PO 02/08/17 09:00 03/10/17 08:59 02/08/17 14:22 1 CAP Miscellaneous Information (Order Awaiting Action) 1 ea QS N/A 02/08/17 08:00 03/10/17 07:59 Glucose (Glucose 40% Gel) 15-30 GRAMS 15 GRAMS... UD PRN PO 02/08/17 05:15 03/10/17 05:14 Glucose (Glucose Chew Tab) 4-8 Tablets 4 Tabl... UD PRN PO 02/08/17 05:15 03/10/17 05:14 Dextrose (Dextrose 50% 50ML Syringe) 25-50ML OF 50% DW IV FOR... UD PRN IV 02/08/17 05:15 03/10/17 05:14 Glucagon (Glucagon Inj) 1 mg UD PRN SQ 02/08/17 05:15 03/10/17 05:14 Warfarin Sodium (Coumadin Tab) 7.5 mg DAILY@16 PO 02/08/17 16:00 03/10/17 15:59 02/08/17 18:12 7.5 MG Albuterol/ Ipratropium (Duoneb) 3 ml QIDR INH 02/08/17 08:00 03/10/17 07:59 02/08/17 19:17 3 ML Valacyclovir HCl (Valtrex Tab) 1,000 mg DAILY PO 02/08/17 09:00 03/10/17 08:59 02/08/17 14:22 1,000 MG Insulin Aspart (novoLOG ASPART) SLIDING SCALE If C... ACHS SC 02/08/17 07:00 03/10/17 06:59 Ioversol (Optiray 320) 100 ml UD PRN IV 02/08/17 12:15 02/12/17 12:14 Heparin Sodium (Porcine) 67239 unit/Dextrose 500 ml @ 27 mls/hr [id number] PRN IV 02/08/17 14:30 03/10/17 14:29 02/08/17 15:18 27 MLS/HR
[2017-02-08] MEDS ORDERED: DEXTROSE 5% 1000ML 1,000 ML IV SCH (21:15)
[2017-02-08 21:23] LABS: PARTIAL THROMBOPLASTIN RATIO 1.6
[2017-02-08] MEDS ORDERED: HEPARIN IV BOLUS 3,000 UNIT in SYRINGE 0 ML IV ONE (21:45)
[2017-02-09] VITALS (30 sets, daily range): BP systolic 104–149; BP diastolic 38–84; PULSE 76–141; TEMP 36.8–38.3; O2SAT 88–98; Ht 167.6 cm; Wt 110.1 kg
[2017-02-09 04:47] LABS: HEMATOCRIT 28.2 % (37-47); MEAN CELL VOLUME 109.3 fL (80-100); MEAN CORPUSCULAR HEMOGLOBIN 34.9 pg (25-34); MEAN CORPUSCULAR HGB CONC 31.9 g/dl (32-36); MEAN PLATELET VOLUME 10.8 fL (7.4-10.4); PLATELET COUNT 132 K/uL (130-400); RED BLOOD COUNT 2.58 M/uL (4.2-5.4); WHITE BLOOD COUNT 6.65 K/uL (4.8-10.8)
[2017-02-09 04:50] LABS: PARTIAL THROMBOPLASTIN RATIO 2.1
[2017-02-09 05:06] LABS: BUN/CREATININE RATIO 7.4 (10-20); CALCIUM 7.8 mg/dl (8.5-10.1); POTASSIUM 3.9 mmol/L (3.5-5.1)
[2017-02-09 05:38] LABS: CHOLESTEROL/HDL RATIO 2.4
[2017-02-09] MEDS ORDERED: METOPROLOL TARTRATE 1 MG/ML VIAL IV STA (05:44)
[2017-02-09] MEDS: NITROGLYCERIN OINT 2% 1GM PACKET EXT SCH ×4 (06:19→23:24)
[2017-02-09] MEDS: ALBUT/IPRATROP 3MG/0.5MG NEB 3 ML VIAL INH SCH ×4 (07:14→19:14)
--- NOTE | 2017-02-09 07:57 | Nephrology Progress Note ---
Nephrology Progress Note Date of Service: Feb 09, 2017. Subjective 71 yo female with esrd who had two hours of dialysis yesterday and then went for cta to rule out dissection and pe which was negative. pt continues to have abdominal pain and did not eat much yesterday. had low blood sugars and started on d5w at 100cc/hr last night. pt was able to eat some ice cream this morning. continues to be in discomfort. Objective Date Time Temp Pulse Resp B/P (MAP) Pulse Ox O2 Delivery O2 Flow Rate FiO2 02/09/17 07:37 Nasal Cannula 6.0 02/09/17 07:12 36.8 115 20 127/82 (97) 93 5.0 02/09/17 05:57 113 122/70 02/09/17 04:35 36.9 113 20 122/70 (87) 94 Nasal Cannula 5.0 02/09/17 04:12 94 Nasal Cannula 6.0 02/09/17 00:04 94 Nasal Cannula 5.0 02/08/17 23:49 37.2 121 18 150/77 (101) 92 Nasal Cannula 5.0 02/08/17 20:04 95 Nasal Cannula 5.0 02/08/17 20:00 93 Nasal Cannula 4.0 02/08/17 19:48 37.5 127 20 122/72 (89) 91 Nasal Cannula 4.0 Humidified Oxygen 02/08/17 19:20 115 18 92 Nasal Cannula 4.0 02/08/17 16:00 96 Nasal Cannula 4.0 02/08/17 15:22 37.2 107 20 129/81 (97) 97 Nasal Cannula 4.0 Humidified Oxygen 02/08/17 15:19 104 18 91 Nasal Cannula 3.5 02/08/17 12:34 96 Nasal Cannula 5.0 02/08/17 12:30 36.6 111 157/93 (114) 02/08/17 12:14 94 Nasal Cannula 3.0 02/08/17 12:00 109 157/67 02/08/17 11:59 98 20 91 Nasal Cannula 3.0 02/08/17 11:45 128 161/67 02/08/17 11:30 88 153/107 02/08/17 11:15 64 156/109 02/08/17 11:00 64 174/73 02/08/17 11:00 121 02/08/17 10:45 63 179/81 02/08/17 10:30 63 161/90 02/08/17 10:23 62 173/70 02/08/17 10:15 36.6 63 179/73 (108) 02/08/17 08:00 95 Nasal Cannula 3.0 02/08/17 07:59 36.8 74 18 135/63 (87) 96 Physical Exam: General-[id number] Eyes-no scleral icterus ENT-mmm Neck-supple Lungs-decreased at bases Heart-tachy Abdomen-+tenderness Extremities-mild edema Neuro-nonfocal Current Inpatient Medications Medications (Trade) Dose Ordered Sig/Joan Route Start Time Stop Time Status Last Admin Dose Admin Acetaminophen (Tylenol Tab) 650 mg Q6 PRN PO 02/08/17 05:15 03/10/17 05:14 Albuterol (Ventolin Hfa Inhaler) 2 puffs Q4 PRN INH 02/08/17 05:15 03/10/17 05:14 Amlodipine Besylate (Norvasc Tab) 10 mg QAM PO 02/08/17 09:00 03/10/17 08:59 02/08/17 14:24 10 MG Calcium Acetate (Phoslo Cap) 1,334 mg TIDM PO 02/08/17 07:30 03/10/17 07:59 02/08/17 14:25 1,334 MG Clonidine HCl (Catapres Tab) 0.1 mg BID PO 02/08/17 09:00 03/10/17 08:59 02/08/17 22:09 0.1 MG Salmeterol Xinafoate/ Fluticasone (Advair Diskus 250/50 Inh) 1 puff BID INH 02/08/17 09:00 03/10/17 08:59 02/08/17 22:09 1 PUFF Furosemide (Lasix Tab) 40 mg DAILY PO 02/08/17 09:00 03/10/17 08:59 Future Hold Insulin Glargine (Lantus Solostar Pen) 26 units QAM SC 02/08/17 09:00 03/10/17 08:59 Future Hold 02/08/17 09:50 26 UNITS Lactobacillus Acidophilus (Floranex Tab) 1 tab DAILY PO 02/08/17 09:00 03/10/17 08:59 Losartan Potassium (coZAAR TAB) 100 mg DAILY PO 02/08/17 09:00 03/10/17 08:59 02/08/17 14:23 100 MG Prednisolone Acetate (Pred Forte 1% Oph Susp) 1 drops DAILY OPL 02/08/17 09:00 03/10/17 08:59 02/08/17 09:26 1 DROPS Vitamin B Complex/ Vit C/Folic Acid (Nephrocaps) 1 cap DAILY PO 02/08/17 09:00 03/10/17 08:59 02/08/17 14:22 1 CAP Miscellaneous Information (Order Awaiting Action) 1 ea QS N/A 02/08/17 08:00 03/10/17 07:59 Glucose (Glucose 40% Gel) 15-30 GRAMS 15 GRAMS... UD PRN PO 02/08/17 05:15 03/10/17 05:14 Glucose (Glucose Chew Tab) 4-8 Tablets 4 Tabl... UD PRN PO 02/08/17 05:15 03/10/17 05:14 Dextrose (Dextrose 50% 50ML Syringe) 25-50ML OF 50% DW IV FOR... UD PRN IV 02/08/17 05:15 03/10/17 05:14 02/08/17 20:19 25 ML Glucagon (Glucagon Inj) 1 mg UD PRN SQ 02/08/17 05:15 03/10/17 05:14 Warfarin Sodium (Coumadin Tab) 7.5 mg DAILY@16 PO 02/08/17 16:00 03/10/17 15:59 02/08/17 18:12 7.5 MG Albuterol/ Ipratropium (Duoneb) 3 ml QIDR INH 02/08/17 08:00 03/10/17 07:59 02/08/17 19:17 3 ML Valacyclovir HCl (Valtrex Tab) 1,000 mg DAILY PO 02/08/17 09:00 03/10/17 08:59 02/08/17 14:22 1,000 MG Insulin Aspart (novoLOG ASPART) SLIDING SCALE If C... ACHS SC 02/08/17 07:00 03/10/17 06:59 Ioversol (Optiray 320) 100 ml UD PRN IV 02/08/17 12:15 02/12/17 12:14 Heparin Sodium (Porcine) 02886 unit/Dextrose 500 ml @ 30 mls/hr [id number] PRN IV 02/08/17 14:30 03/10/17 14:29 02/08/17 22:04 30 MLS/HR Dextrose 1,000 ml @ 100 mls/hr Q10H IV 02/08/17 21:15 03/10/17 21:14 02/08/17 21:36 100 MLS/HR Pantoprazole Sodium 40 mg/ Syringe 10 ml @ 5 mls/min DAILY@ IV 02/09/17 09:00 03/11/17 08:59 Clopidogrel Bisulfate (plAVix TAB) 75 mg QAM PO 02/09/17 09:00 03/11/17 08:59 Metoprolol Tartrate (Lopressor Tab) 50 mg BID PO 02/09/17 09:00 03/11/17 08:59 Nitroglycerin (Nitroglycerin 2% Oint) 1 inch Q6 EXT 02/09/17 06:00 03/11/17 05:59 02/09/17 06:19 1 INCH Last 24 Hours Test 02/08/17 11:50 02/08/17 11:51 02/08/17 16:10 02/08/17 20:13 Blood Gas Sample Site R Radial Bedside Blood Gas pH (LAB) 7.48 Bedside Blood Gas pCO2 (LAB) 34 mmHg Bedside Blood Gas pO2 (LAB) 56 mmHg Bedside Blood Gas HCO3 (LAB) 25 meq/L Bedside Blood Gas Total CO2 26 mEq/l Bedside Blood Gas Base Excess (LAB) 1.0 meq/L Bedside Blood Gas O2 Saturation 91.0 % Dar Test Pass Oxygen Delivery Device Cannula Bedside Glucose 95 mg/dl 78 mg/dl 52 mg/dl Test 02/08/17 20:35 02/08/17 21:02 02/08/17 21:03 02/09/17 00:01 Bedside Glucose 106 mg/dl 69 mg/dl Activated Partial Thromboplast Time 41.3 SECONDS Partial Thromboplastin Ratio 1.6 Troponin I 0.382 ng/ml Lipase 51 U/L Test 02/09/17 00:35 02/09/17 03:52 02/09/17 04:18 02/09/17 06:33 Bedside Glucose 80 mg/dl 73 mg/dl 79 mg/dl White Blood Count 6.65 K/uL Red Blood Count 2.58 M/uL Hemoglobin 9.0 g/dL Hematocrit 28.2 % Mean Corpuscular Volume 109.3 fL Mean Corpuscular Hemoglobin 34.9 pg Mean Corpuscular Hemoglobin Concent 31.9 g/dl RDW Standard Deviation 68.9 fL RDW Coefficient of Variation 17.2 % Platelet Count 132 K/uL Mean Platelet Volume 10.8 fL Activated Partial Thromboplast Time 55.3 SECONDS Partial Thromboplastin Ratio 2.1 Sodium Level 135 mmol/L Potassium Level 3.9 mmol/L Chloride Level 101 mmol/L Carbon Dioxide Level 23 mmol/L Anion Gap 11.0 mmol/L Blood Urea Nitrogen 81 mg/dl Creatinine 11.00 mg/dl Est Creatinine Clear Calc Drug Dose 5.8 ml/min Estimated GFR () 3.7 Estimated GFR (Non- 3.2 BUN/Creatinine Ratio 7.4 Random Glucose 63 mg/dl Calcium Level 7.8 mg/dl Total Creatine Kinase 684 U/L Creatine Kinase MB 6.8 ng/ml Creatine Kinase MB Ratio 1.0 Troponin I 0.587 ng/ml Triglycerides Level 89 mg/dl Cholesterol Level 87 mg/dl HDL Cholesterol 36 mg/dl LDL Cholesterol, Calculated 33 mg/dl VLDL Cholesterol, Calculated 18 mg/dl Cholesterol/HDL Ratio 2.4 Assessment & Plan ESRD-will try to remove fluid on a daily basis with dialysis if patient is agreeable. will use albumin while on dialysis to help with volume removal. stopping the iv fluids and will recheck blood sugars in an hour. did eat some ice cream this morning so hopefully blood sugars are better. Anemia of renal failure-hg levels are dropping and may be dilutional. to redose procrit today. hypocalcemia-will give a dose of calcium gluconate to help raise calcium levels.
[2017-02-09] MEDS: INCRUSE ELLIPTA~ORDER AWAITING ACTION SCH ×2 (08:00→16:00)
[2017-02-09] MEDS ORDERED: EPOETIN ALFA 10,000 UNITS/ML VIAL IV. ONE (08:00)
[2017-02-09] MEDS ORDERED: CALCIUM GLUCONATE 10% 1,000 MG in SODIUM CHLORIDE 0.9% 50ML 50 ML IV ONE (08:00)
[2017-02-09] MEDS: AMLODIPINE BESYLATE 5 MG TAB PO SCH (08:12)
[2017-02-09] MEDS: LACTOBACILLUS ACIDOPHILUS (FLORANEX) TAB PO SCH (08:12)
[2017-02-09] MEDS: CALCIUM ACETATE 667MG GELCAP PO SCH ×3 (08:12→16:57)
[2017-02-09] MEDS: NEPHROCAPS PO SCH (08:13)
[2017-02-09] MEDS: CLOPIDOGREL BISULFATE 75 MG TAB PO SCH (08:13)
[2017-02-09] MEDS: LOSARTAN POTASSIUM 50 MG TAB PO SCH (08:13)
[2017-02-09] MEDS: METOPROLOL TARTRATE 50 MG TAB PO SCH ×2 (08:14→20:19)
[2017-02-09] MEDS: CLONIDINE HCL 0.1 MG TAB PO SCH ×2 (08:14→20:18)
[2017-02-09] MEDS: FLUTICASONE/SALMETEROL 250/50 (ADVAIR) 14 PUFF/1 INHALER INH SCH ×2 (08:15→20:19)
[2017-02-09] MEDS: PANTOprazole INJ 40 MG in SYRINGE 0 ML IV SCH ×2 (08:15→20:16)
[2017-02-09] MEDS: PrednisoLONE ACET 1% OP SUSP 5 ML BTL OPL SCH (08:15)
--- NOTE | 2017-02-09 08:19 | Clinical Documentation Query ---
PLEASE REFER TO DR. PAUL. SHE HAS ASSUMED CARE OF THIS PT. THANKS. TIANNA LANGE CLINICAL DOCUMENTATION QUERY QUERY 1 OF 2 71 year old female with PMH DM type 2, Tobacco abuse, Paroxysmal AFib, ESRD on HD, HTN, COPD, CHF presents to the Emergency Room with complaints of worsening SOB. In your clinical opinion is this patient being managed for: ( ) Acute and chronic respiratory failure with hypoxia ( ) Not Agree ( ) Other explanation of clinical findings (Please Explain) ( ) Unable to determine (Please Define) ( ) Need to Discuss The medical record reflects the following clinical findings, treatment, and risk factors. Clinical Indicators: Acute respiratory distress with resp rate of 24, diminished breath sounds, "gasping for air", "unable to talk" Treatment: CPAP, Lasix IV, telemetry Risk Factors: Chronic diastolic CHF, COPD, +smoker, ESRD QUERY 2 OF 2 In your clinical opinion is this patient being managed for: ( ) Acute on chronic diastolic CHF ( ) Not Agree ( ) Other explanation of clinical findings (Please Explain) ( ) Unable to determine (Please Define) ( ) Need to Discuss The medical record reflects the following clinical findings, treatment, and risk factors. Clinical Indicators: Respiratory distress, lung sounds with crackles, CXR = CHF pattern, + neck JVD, +1 edema Treatment: Lasix IV, I&O, telemetry Risk Factors: chronic diastolic CHF, ESRD Please clarify and document your clinical opinion in the progress notes and discharge summary. Terms such as "probable", "suspected", "likely", "questionable", "possible", or "still to be ruled out" are acceptable. IF IN AGREEMENT, YOU MUST DOCUMENT ABOVE DIAGNOSTIC STATEMENT IN DAILY PROGRESS NOTES AND DISCHARGE SUMMARY. This document is not part of the patient's record. Thank You, Marlyn Stephens RN [phone]
[2017-02-09] MEDS: INSULIN ASPART 100 UNITS/ML 3 ML PEN SC SCH ×4 (08:25→20:21)
[2017-02-09] MEDS: HEPARIN 25000 UNIT/ D5W 500 ML (PHARMACY PREPARED) IV PRN ×2 (08:26)
[2017-02-09] MEDS ORDERED: LIDODERM (LIDOCAINE) PATCH 5% TD ONE (09:16)
[2017-02-09] MEDS ORDERED: MoRPHine SULFATE 2 MG/ML CARP IV STA (09:57)
--- NOTE | 2017-02-09 10:32 | Cardiology Follow-Up ---
Subjective Subjective Date of Service: Feb 09, 2017. Pt evaluation today including: conversation w/ patient, physical exam, chart review, lab review, review of studies, review of inpatient medication list Additional Details: Pt seen and examined, still with severe right chest pain under right breast. Pain remains sharp, worse with inhalation or movement. Having difficulty lying still. States sob is somewhat improved but having difficulty focusing on anything else but the pain. Denies palpitations, lightheadedness or dizziness. Tele reviewed: afib with rates 90's-110's overnight Problem List Medical Problems: (1) Anemia Status: Acute (2) Chest pain Status: Acute (3) CHF (congestive heart failure) Status: Acute (4) CHF (congestive heart failure) Status: Acute (5) Chronic obstructive pulmonary disease Status: Acute (6) COPD (chronic obstructive pulmonary disease) Status: Acute (7) COPD exacerbation Status: Acute (8) End stage renal disease Status: Acute (9) End stage renal disease on dialysis Status: Acute (10) GI bleed Status: Acute (11) GI bleed Status: Acute (12) Hemoptysis Status: Acute (13) Hypoxemia Status: Acute (14) Hypoxia Status: Acute (15) Left lower lobe pneumonia Status: Acute (16) PNA (pneumonia) Status: Acute (17) Pneumonia Status: Acute (18) Pulmonary congestion Status: Acute (19) Rapid atrial fibrillation Status: Acute (20) Respiratory failure Status: Acute (21) Shortness of breath Status: Acute (22) Supratherapeutic INR Status: Acute Review of Systems Respiratory: + shortness of breath, No see HPI, No cough, No sputum, No wheezing, No dyspnea on exertion, No dyspnea at rest, No hemoptysis, No problem reported Cardiac: + see HPI, + chest pain, No orthopnea, No PND, No edema, No claudication, No palpitations, No problem reported Endo: + fatigue Objective Vital Signs Last Vital Signs Documentation Date Time Temp Pulse Resp B/P (MAP) Pulse Ox O2 Delivery O2 Flow Rate FiO2 02/09/17 08:00 Nasal Cannula 3.0 02/09/17 07:37 02/09/17 07:14 112 22 02/09/17 07:12 36.8 127/82 (97) 02/08/17 07:16 45 Physical Exam: General Appearance: WD/WN, no apparent distress Eyes: bilateral eyes normal inspection, bilateral eyes PERRL, bilateral eyes EOMI ENT: normal ENT inspection, hearing grossly normal, pharynx normal Neck: supple, no adenopathy, thyroid normal, no JVD, no carotid bruits, trachea midline Respiratory/Chest: lungs clear, normal breath sounds, no respiratory distress, no accessory muscle use, + pertinent finding (reproducible chest pain under right breast) Cardiovascular: no murmur, + tachycardia, + irregularly irregular Abdomen: normal bowel sounds, non tender, soft, no organomegaly, no pulsatile mass Extremities: normal inspection, no pedal edema, no calf tenderness 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 SOB pleural effusion appears more significant on CT chest PE ruled out no objective findings of ischemia likely secondary to effusion and/or copd exac will defer further treatment to pulmonary, may benefit from therapeutic thoracentesis 2. chest pain appears to be musculoskeletal in nature no benefit from morphine no rib pathology reported on CT scan but likely not optimal examination modality will try lidocaine patch at site if no benefit would consider rib xray and pain medicine evaluation 3. ESRD incomplete HD yesterday for HD today
--- NOTE | 2017-02-09 11:06 | DIAGNOSTIC IMAGING REPORT ---
ABDOMEN AND PELVIS CT WITHOUT CONTRAST CT DOSE: 1298.53 mGy.cm HISTORY: upper abd pain, specifically RUQ area radiating to back TECHNIQUE: Multiaxial CT images of the abdomen and pelvis were performed without contrast. A dose lowering technique was utilized adhering to the principles of ALARA. COMPARISON STUDY: Abdomen and pelvis CT 02/08/2017. FINDINGS: Small bilateral pleural effusions, unchanged. Bilateral lower lobe consolidation posteriorly is nonspecific but favors atelectasis from the pleural effusions. Moderate calcified plaque throughout the abdominal aorta, iliac arteries, and major mesenteric vessels. Trace pelvic free fluid. Residual contrast within the urinary system due to the prior CT. Mild bladder wall thickening, unchanged. Stable right adrenal gland nodule. Mild fat stranding along the undersurface of the right hepatic lobe near the gallbladder fossa persists. This does not appear to be associated with the duodenum at this time. Stable hypodense lesions within the spleen with the largest measuring 3 cm. Cholecystectomy. The liver is unremarkable. A 2.5 cm hyperdense lesion within the right kidney remains unchanged in size. This is incompletely characterize but favors a hyperdense cyst. No hydronephrosis. Mild bilateral cortical renal atrophy. The uterus is surgically absent. Stable left adrenal gland nodule. Small cystic lesion within the tail the pancreas which measures 6 mm. No new pancreatic lesions identified. Colonic and jejunal diverticulosis. No evidence for bowel obstruction. IMPRESSION: 1. Mild fat stranding at the undersurface of the right hepatic lobe near the gallbladder fossa. This does not appear to be associated with the duodenum at this time. There are few adjacent colonic diverticula which do not appear inflamed. This is nonspecific. Recommend correlation with LFTs to exclude a hepatitis. 2. No definite bowel wall thickening or obstruction. 3. Small bilateral pleural effusions and bilateral lower lobe densities persist. This may represent atelectasis or pneumonia. 4. Additional stable findings as described above. Electronically signed by: Dave Castañeda M.D. 02/09/2017 11:05 AM Dictated Date/Time: 02/09/2017 10:53 AM
[2017-02-09 11:08] LABS: CKMB/CK RATIO 0.9 (0-3.0)
[2017-02-09] MEDS: ALBUMIN HUMAN 25% 12.5 GM/50 ML VIAL IV SCH ×2 (11:40→11:41)
--- NOTE | 2017-02-09 11:55 | Gastrointestinal Consultation ---
Gastrointestinal Consultation Date of Consultation: Feb 09, 2017 Attending Physician: Dejon Cabrera Consulting Physician: Adriel Olson Reason for Consultation: Abd pain, abnormal CT History of Present Illness Patient is a 71 year old female w PMHx of DM II, hx of tobacco abuse, Afib, ESRD on HD, HTN, COPD, CHF who was admitted for worsening SOB. Pulmonary imaging showed bilateral pleural effusion and congestive heart failure pattern. BNP [id number]. She is currently followed by Cardiology and Pulmonary. GI is consulted mainly for abd pain and abnormal CT findings. Pt is c/o RUQ abd pain radiating to her back which started yesterday. She appeared to be very uncomfortable, cannot lay still in bed. Laying on back or R side is worse per her report. She managed to eat a solid meal today. Though per RN report her pain seems to be worse after eating. No bowel habit changes. She had hx of gastritis and + Hpylori in 2016 seen in EGD eval. Though repeat Stool Hpylori Ag 12/01/16 negative. Labs notable for mild LFT elevation: Tbili 1.6, Dbili 0.7, AST 45, ALT 85, Alk phos 119, Lipase 51. Yesterday had CT dissection and CTA CT dissection: 1. No evidence of aortic aneurysm or dissection 2. No evidence of acute pulmonary embolism 3. Septal edema and bilateral pleural effusions suggesting congestive heart failure 4. Bibasilar dependent airspace opacities likely atelectatic 5. Subcentimeter pulmonary nodules. In a low risk patient, no further follow-up is indicated 6. 25 mm left adrenal adenoma 7. Nonspecific hypodense splenic lesions, the largest of which measures 35 mm CTA: 1. Normal caliber abdominal aorta with no evidence for dissection. 2. Multifocal stenosis within the mesenteric and renal arteries as described above. 3. Mild fat stranding surrounding the second portion of the duodenum. This raises the possibility of a duodenitis versus peptic ulcer disease. This could also be related to edema from cardiac congestion of the liver. 4. Small bilateral pleural effusions. 5. Significant decrease in size in the cystic lesion within the tail the pancreas. Past Medical/Surgical History Medical Problems: (1) Anemia Status: Acute (2) Chest pain Status: Acute (3) CHF (congestive heart failure) Status: Acute (4) CHF (congestive heart failure) Status: Acute (5) Chronic obstructive pulmonary disease Status: Acute (6) COPD (chronic obstructive pulmonary disease) Status: Acute (7) COPD exacerbation Status: Acute (8) End stage renal disease Status: Acute (9) End stage renal disease on dialysis Status: Acute (10) GI bleed Status: Acute (11) GI bleed Status: Acute (12) Hemoptysis Status: Acute (13) Hypoxemia Status: Acute (14) Hypoxia Status: Acute (15) Left lower lobe pneumonia Status: Acute (16) PNA (pneumonia) Status: Acute (17) Pneumonia Status: Acute (18) Pulmonary congestion Status: Acute (19) Rapid atrial fibrillation Status: Acute (20) Respiratory failure Status: Acute (21) Shortness of breath Status: Acute (22) Supratherapeutic INR Status: Acute Past Medical History: See above, also herpes simplex iridocyclitis, mitral regurgitation, OA, pancreatic cyst (serous cyst), psoriasis, Past Surgical History: Nasal polypectomy Cataract Cholecystectomy L oophorectomy Total hysterectomy Family History Diabetes mellitus FATHER MOTHER BROTHER FH: cancer BROTHER FH: heart disease FATHER Hypertension BROTHER Kidney disease BROTHER Social History Smoking Status: Current Every Day Smoker Drug Use: none Marital Status: Housing Status: lives with family Occupation Status: retired Allergies Coded Allergies: No Known Allergies (Verified , 02/08/17) Current Medications Home Meds and Scripts Medications Dose Route/Sig Max Daily Dose Days Date Category Dose Instructions Medrol Dosepak (Methylprednisolone) 4 Mg Pedro 1 Pkt PO UD 6 02/06/17 Rx Warfarin Sodium 5 Mg Tab 5-10 Mg PO DAILY 02/01/17 Reported Lactobacillus 1 Tab Tab 1 Tab PO UD 11/30/16 Reported Lopressor (Metoprolol Tartrate) 25 Mg Tab 25 Mg PO BID 11/30/[address] [facility] Mucus D Extended Rele 60-600 mg (Pseudoephedrine-Guaifenesin) 1 Tab Tab 1 Tab PO Q12 PRN 10/26/16 Reported Pred Forte 1% Oph (Prednisolone Acetate (Ophth)) 1 % Neena 1 Drops OPL DAILY 10/26/16 Reported Duoneb (Ipratropium-Albuterol) 3 Ml Nebu 1 Treatment INH QID PRN 10/26/16 Reported Apap (Acetaminophen) 325 Mg Tab 650 Mg PO Q6 PRN 10/26/16 Reported Valtrex (Valacyclovir Hcl) 1 Gm Tab 1,000 Mg PO DAILY 10/26/16 Reported Nephrocaps (Vitamin B Complex/Vit C/Folic Acid) Cap 1 Cap PO DAILY 10/26/16 Reported Phoslo 667 Mg (Calcium Acetate) 667 Mg Cap 2 Cap PO TIDM 10/26/16 Reported Cozaar (Losartan Potassium) 100 Mg Tab 100 Mg PO DAILY 10/26/16 Reported Incruse Ellipta (Umeclidinium [place]) 62.5 Mcg/Inh Inh 1 Puff INH DAILY 10/26/16 Reported Lantus (Insulin Glargine) 100 Unit/Ml Inj 26 Units SC QAM 07/13/16 Reported Furosemide 40 Mg Tab 40 Mg PO DAILY 05/01/16 Reported Qlvpscdzn-Dqjgorlxxu-Qhpy 2.5-2.5 % (Lidocaine-Prilocaine) 1 Cre Cre 1 Appln TOP UD PRN 05/01/16 Reported APPLY SMALL AMT TO ACCESS SITE 1-2 HOURS BEFORE DIALYSIS. COVER WITH SARAN WRAP Vitamin D 74081 Unit (Ergocalciferol) 50,000 Unit Cap 50,000 Unit PO MONTHLY 05/01/16 Reported 9th Procrit (Epoetin [place]) 10,000 Units Inj 05/01/16 Reported per dialysis clinic Ventolin Hfa (Albuterol) 200 Puffs/08534 Mcg Aers 2 Puffs INH Q4 PRN 05/01/16 Reported Cyanocobalamin 1,000 Mcg/Ml Inj 1,000 Mcg IM MONTHLY 04/12/16 Reported Oxygen Gas 2.5 Liters NA CONTINOUS 05/15/15 Reported Advair Diskus 250/50 60 Dose (Fluticasone Prop/Salmeterol) 1 Ea Aerp 2 Puff INH BID 05/15/15 Reported Catapres (Clonidine Hcl) 0.1 Mg Tab 0.1 Mg PO BID 05/15/15 Reported Novolog Flexpen (Insulin Aspart) 100 Units/Ml Inj 2-3 Units SQ TIDM 04/01/15 Reported TAKES PER SLIDING SCALE Norvasc (Amlodipine Besylate) 10 Mg Tab 10 Mg PO QAM 09/08/13 Reported Review of Systems Constitutional: No fever, No chills Respiratory: + shortness of breath, No cough Cardiac: No chest pain Abdomen: + see HPI, + pain, No nausea, No vomiting, No diarrhea Physical Exam Date Time Temp Pulse Resp B/P (MAP) Pulse Ox O2 Delivery O2 Flow Rate FiO2 02/09/17 11:16 110 20 96 Nasal Cannula 4.0 02/09/17 08:00 Nasal Cannula 3.0 02/09/17 07:37 Nasal Cannula 6.0 02/09/17 07:14 112 22 96 Nasal Cannula 4.0 02/09/17 07:12 36.8 115 20 127/82 (97) 93 5.0 02/09/17 05:57 113 122/70 02/09/17 04:35 36.9 113 20 122/70 (87) 94 Nasal Cannula 5.0 02/09/17 04:12 94 Nasal Cannula 6.0 02/09/17 00:04 94 Nasal Cannula 5.0 02/08/17 23:49 37.2 121 18 150/77 (101) 92 Nasal Cannula 5.0 02/08/17 20:04 95 Nasal Cannula 5.0 02/08/17 20:00 93 Nasal Cannula 4.0 02/08/17 19:48 37.5 127 20 122/72 (89) 91 Nasal Cannula 4.0 Humidified Oxygen 02/08/17 19:20 115 18 92 Nasal Cannula 4.0 02/08/17 16:00 96 Nasal Cannula 4.0 02/08/17 15:22 37.2 107 20 129/81 (97) 97 Nasal Cannula 4.0 Humidified Oxygen 02/08/17 15:19 104 18 91 Nasal Cannula 3.5 02/08/17 12:34 96 Nasal Cannula 5.0 02/08/17 12:30 36.6 111 157/93 (114) 02/08/17 12:14 94 Nasal Cannula 3.0 02/08/17 12:00 109 157/67 02/08/17 11:59 98 20 91 Nasal Cannula 3.0 02/08/17 11:45 128 161/67 General Appearance: + moderate distress (c/o pain on RUQ/lower R ribs area), + obese Eyes: normal inspection, PERRL, EOMI Neck: supple, no JVD, trachea midline Respiratory/Chest: + decreased breath sounds, + accessory muscle use Cardiovascular: regular rate, rhythm, no gallop, no murmur Abdomen: soft, + tenderness (tenderness at lower R rib, slightly on RUQ abd area) Extremities: normal inspection, no pedal edema, no calf tenderness Neurologic/Psych: alert, normal mood/affect, oriented x 3 Skin: normal color, warm/dry, no rash Laboratory Results Last 24 Hours Test 02/08/17 11:50 02/08/17 11:51 02/08/17 16:10 02/08/17 20:13 Blood Gas Sample Site R Radial Bedside Blood Gas pH (LAB) 7.48 Bedside Blood Gas pCO2 (LAB) 34 mmHg Bedside Blood Gas pO2 (LAB) 56 mmHg Bedside Blood Gas HCO3 (LAB) 25 meq/L Bedside Blood Gas Total CO2 26 mEq/l Bedside Blood Gas Base Excess (LAB) 1.0 meq/L Bedside Blood Gas O2 Saturation 91.0 % Dar Test Pass Oxygen Delivery Device Cannula Bedside Glucose 95 mg/dl 78 mg/dl 52 mg/dl Test 02/08/17 20:35 02/08/17 21:02 02/08/17 21:03 02/09/17 00:01 Bedside Glucose 106 mg/dl 69 mg/dl Activated Partial Thromboplast Time 41.3 SECONDS Partial Thromboplastin Ratio 1.6 Troponin I 0.382 ng/ml Lipase 51 U/L Test 02/09/17 00:35 02/09/17 03:52 02/09/17 04:18 02/09/17 06:33 Bedside Glucose 80 mg/dl 73 mg/dl 79 mg/dl White Blood Count 6.65 K/uL Red Blood Count 2.58 M/uL Hemoglobin 9.0 g/dL Hematocrit 28.2 % Mean Corpuscular Volume 109.3 fL Mean Corpuscular Hemoglobin 34.9 pg Mean Corpuscular Hemoglobin Concent 31.9 g/dl RDW Standard Deviation 68.9 fL RDW Coefficient of Variation 17.2 % Platelet Count 132 K/uL Mean Platelet Volume 10.8 fL Activated Partial Thromboplast Time 55.3 SECONDS Partial Thromboplastin Ratio 2.1 Sodium Level 135 mmol/L Potassium Level 3.9 mmol/L Chloride Level 101 mmol/L Carbon Dioxide Level 23 mmol/L Anion Gap 11.0 mmol/L Blood Urea Nitrogen 81 mg/dl Creatinine 11.00 mg/dl Est Creatinine Clear Calc Drug Dose 5.8 ml/min Estimated GFR () 3.7 Estimated GFR (Non- 3.2 BUN/Creatinine Ratio 7.4 Random Glucose 63 mg/dl Calcium Level 7.8 mg/dl Total Creatine Kinase 684 U/L Creatine Kinase MB 6.8 ng/ml Creatine Kinase MB Ratio 1.0 Troponin I 0.587 ng/ml Triglycerides Level 89 mg/dl Cholesterol Level 87 mg/dl HDL Cholesterol 36 mg/dl LDL Cholesterol, Calculated 33 mg/dl VLDL Cholesterol, Calculated 18 mg/dl Cholesterol/HDL Ratio 2.4 Test 02/09/17 10:27 02/09/17 11:11 Total Bilirubin 1.3 mg/dl Direct Bilirubin 0.3 mg/dl Aspartate Amino Transf (AST/SGOT) 40 U/L Alanine Aminotransferase (ALT/SGPT) 50 U/L Alkaline Phosphatase 89 U/L Total Creatine Kinase 937 U/L Creatine Kinase MB 8.7 ng/ml Creatine Kinase MB Ratio 0.9 Troponin I 0.518 ng/ml Total Protein 6.3 gm/dl Albumin 3.3 gm/dl Lipase 54 U/L Bedside Glucose 115 mg/dl Impression Patient is a 71 year old female seen for RUQ abd pain and CTA, CT dissection showing mutifocal mesentric & renal stenosis, ? duodenitis. Hx of gastritis on EGD exam in 2016 w + Hpylori, but repeat Hpylori stool Ag 2 months ago negative. Pt's pain on exam is mostly on R lower ribs, and slightly on RUQ abd area, pain is also position dependent (laying on R side or flat). PE ruled out though she has pleural effusions likely related to CHF. She denies any recent falls, no n/ v. Abd pain did get worse after breakfast today. No diarrhea, rectal bleeding etc. LFTs mildly up w normal lipase. She is s/p cholecystectomy. Unclear etiology of the pain. Plan - Obtain CT abd/pelvis w/o contrast (last CT in 2015) - Continue Protonix 40mg IV BID - Repeat LFTs and Lipase - Consult Vascular Surgery - Pulmonary and Cardiology following I performed a history and physical examination of the patient. I have discussed the patient's case, impression and plan with TAYLOR Kyle. Her note reflects my findings and plan. Unclear source of RUQ pain. Seems positional and musculoskeletal in origin. Cont to track liver enzymes. Adriel Olson MD
--- NOTE | 2017-02-09 12:26 | Pulmonology Progress Note ---
Pulmonary Progress Note Date of Service Feb 09, 2017. Attending Dr. Ibrahim Subjective Patient continue to be uncomfortable today. It seems like she is not improved much today but is overall stable in her condition and not acutely worsening. GI was consulted and is following. CT of the abdomen/pelvis was ordered and noted some fat stranding under the right hepatic lobe, but otherwise no acute findings. These images were viewed today. She continues to have right sided chest/upper abdominal pain which is worsened with movement or certain positions. Labs reviewed: Total bilirubin 1.3, Direct bilirubin 0.3 AST 40 CK 937 Troponin 0.518 Lipase 54 WBC 6.65--> down from 17.22 Hgb 9.0 Medications reviewed: Plavix added, continues Brayan Jefferson Discussed this case with Dr. Cabrera and TAYLOR Kyle Objective VS reviewed: 02/09 11:44 Afebrile HR 85 RR 19 BP 130/68 SaO2 97% O2 rate 5 L via nasal cannula General: Patient is awake, but slightly lethargic. Obese. Moderate distress from pain. Moaning. Head: Normocephalic, Atraumatic. ENT: PERRLA, No discharge, EOMI, Sclera normal Neck: Normal ROM. Trachea midline. No stridor Respiratory: Mild rhonchi heard throughout lungs. Mild respiratory distress. Note nasal cannula O2 in place Cardiovascular: Tachycardia. Abdomen: Tenderness of the right upper abdomen/chest. Hyperactive bowel sounds Back: Normal inspection. Extremities: No edema, cyanosis. Normal ROM Neuro: Alert. CN II-XII grossly intact. Sensation and motor function grossly intact. Assessment & Plan Chest/abdominal pain uncertain etiology Dyspnea COPD Acute on chronic respiratory failure CHF ESRD on hemodialysis B/L pleural effusions Patient does not appear to be much improved today. GI is now following, and vascular surgery was consulted. ABG showed no CO2 retention. Do not feel that this patient is having COPD exacerbation though she does appear to have acute on chronic hypoxic respiratory failure. Therefore, continue to monitor O2 saturation and keep her saturation above 94% due to decreased pO2 on ABG. Continue BiPAP to help with afterload reduction at this time PRN worsening respiratory symptoms. Otherwise, maintain nasal cannula as above. EKG showed inferior wall changes, and note elevated cardiac markers. Continue to monitor heart rate/rhythm. Cardiology following. Continue aggressive diuresis due to possible CHF exacerbation/ volume overload. Plan for dialysis again today due to premature discontinuation of dialysis yesterday with CT scans to R/O PE and dissection. New bilateral pleural effusion noted on CT scan along with thoracic U/S. Will continue to follow these and could consider thoracentesis if no improvement is seen with diuresis, but do not plan on thoracentesis at this time. Pulmonary will follow. Patient implant reviewed. And agreed upon. Data Medications: Current Inpatient Medications Medications (Trade) Dose Ordered Sig/Joan Route Start Time Stop Time Status Last Admin Dose Admin Acetaminophen (Tylenol Tab) 650 mg Q6 PRN PO 02/08/17 05:15 03/10/17 05:14 Albuterol (Ventolin Hfa Inhaler) 2 puffs Q4 PRN INH 02/08/17 05:15 03/10/17 05:14 Amlodipine Besylate (Norvasc Tab) 10 mg QAM PO 02/08/17 09:00 03/10/17 08:59 02/09/17 08:12 10 MG Calcium Acetate (Phoslo Cap) 1,334 mg TIDM PO 02/08/17 07:30 03/10/17 07:59 02/09/17 08:12 1,334 MG Clonidine HCl (Catapres Tab) 0.1 mg BID PO 02/08/17 09:00 03/10/17 08:59 02/09/17 08:14 0.1 MG Salmeterol Xinafoate/ Fluticasone (Advair Diskus 250/50 Inh) 1 puff BID INH 02/08/17 09:00 03/10/17 08:59 02/09/17 08:15 1 PUFF Furosemide (Lasix Tab) 40 mg DAILY PO 02/08/17 09:00 03/10/17 08:59 Future Hold Insulin Glargine (Lantus Solostar Pen) 26 units QAM SC 02/08/17 09:00 03/10/17 08:59 Future Hold 02/08/17 09:50 26 UNITS Lactobacillus Acidophilus (Floranex Tab) 1 tab DAILY PO 02/08/17 09:00 03/10/17 08:59 02/09/17 08:12 1 TAB Losartan Potassium (coZAAR TAB) 100 mg DAILY PO 02/08/17 09:00 03/10/17 08:59 02/09/17 08:13 100 MG Prednisolone Acetate (Pred Forte 1% Oph Susp) 1 drops DAILY OPL 02/08/17 09:00 03/10/17 08:59 02/09/17 08:15 1 DROPS Vitamin B Complex/ Vit C/Folic Acid (Nephrocaps) 1 cap DAILY PO 02/08/17 09:00 03/10/17 08:59 02/09/17 08:13 1 CAP Miscellaneous Information (Order Awaiting Action) 1 ea QS N/A 02/08/17 08:00 03/10/17 07:59 Glucose (Glucose 40% Gel) 15-30 GRAMS 15 GRAMS... UD PRN PO 02/08/17 05:15 03/10/17 05:14 Glucose (Glucose Chew Tab) 4-8 Tablets 4 Tabl... UD PRN PO 02/08/17 05:15 03/10/17 05:14 Dextrose (Dextrose 50% 50ML Syringe) 25-50ML OF 50% DW IV FOR... UD PRN IV 02/08/17 05:15 03/10/17 05:14 02/08/17 20:19 25 ML Glucagon (Glucagon Inj) 1 mg UD PRN SQ 02/08/17 05:15 03/10/17 05:14 Warfarin Sodium (Coumadin Tab) 7.5 mg DAILY@16 PO 02/08/17 16:00 03/10/17 15:59 02/08/17 18:12 7.5 MG Albuterol/ Ipratropium (Duoneb) 3 ml QIDR INH 02/08/17 08:00 03/10/17 07:59 02/09/17 11:16 3 ML Valacyclovir HCl (Valtrex Tab) 1,000 mg DAILY PO 02/08/17 09:00 03/10/17 08:59 02/09/17 08:13 1,000 MG Insulin Aspart (novoLOG ASPART) SLIDING SCALE If C... ACHS SC 02/08/17 07:00 03/10/17 06:59 02/09/17 08:25 2 UNITS Ioversol (Optiray 320) 100 ml UD PRN IV 02/08/17 12:15 02/12/17 12:14 Heparin Sodium (Porcine) 60471 unit/Dextrose 500 ml @ 30 mls/hr [id number] PRN IV 02/08/17 14:30 03/10/17 14:29 02/09/17 08:26 30 MLS/HR Pantoprazole Sodium 40 mg/ Syringe 10 ml @ 5 mls/min DAILY@ IV 02/09/17 09:00 03/11/17 08:59 02/09/17 08:15 5 MLS/MIN Clopidogrel Bisulfate (plAVix TAB) 75 mg QAM PO 02/09/17 09:00 03/11/17 08:59 02/09/17 08:13 75 MG Metoprolol Tartrate (Lopressor Tab) 50 mg BID PO 02/09/17 09:00 03/11/17 08:59 02/09/17 08:14 50 MG Nitroglycerin (Nitroglycerin 2% Oint) 1 inch Q6 EXT 02/09/17 06:00 03/11/17 05:59 02/09/17 06:19 1 INCH Albumin Human (Albumin 25%) 12.5 gm 0800,0900 IV 02/09/17 08:00 02/09/17 16:00 02/09/17 11:41 12.5 GM Lidocaine (Lidoderm Patch 5%) 1 patch QAM TD 02/10/17 09:00 03/12/17 08:59 Miscellaneous (Remove Lidoderm Patch) 1 ea DAILY@21 N/A 02/09/17 21:00 03/11/17 20:59 Vital Signs: Date Time Temp Pulse Resp B/P (MAP) Pulse Ox O2 Delivery O2 Flow Rate FiO2 02/09/17 11:45 37.4 108 104/55 (71) 02/09/17 11:44 37.5 85 19 130/68 (88) 97 Nasal Cannula 5.0 02/09/17 11:16 110 20 96 Nasal Cannula 4.0 02/09/17 08:00 Nasal Cannula 3.0 02/09/17 07:37 Nasal Cannula 6.0 02/09/17 07:14 112 22 96 Nasal Cannula 4.0 02/09/17 07:12 36.8 115 20 127/82 (97) 93 5.0 02/09/17 05:57 113 122/70 02/09/17 04:35 36.9 113 20 122/70 (87) 94 Nasal Cannula 5.0 02/09/17 04:12 94 Nasal Cannula 6.0 02/09/17 00:04 94 Nasal Cannula 5.0 02/08/17 23:49 37.2 121 18 150/77 (101) 92 Nasal Cannula 5.0 02/08/17 20:04 95 Nasal Cannula 5.0 02/08/17 20:00 93 Nasal Cannula 4.0 02/08/17 19:48 37.5 127 20 122/72 (89) 91 Nasal Cannula 4.0 Humidified Oxygen 02/08/17 19:20 115 18 92 Nasal Cannula 4.0 02/08/17 16:00 96 Nasal Cannula 4.0 02/08/17 15:22 37.2 107 20 129/81 (97) 97 Nasal Cannula 4.0 Humidified Oxygen 02/08/17 15:19 104 18 91 Nasal Cannula 3.5 02/08/17 12:34 96 Nasal Cannula 5.0 02/08/17 12:30 36.6 111 157/93 (114) Laboratory Results: Last 24 Hours Test 02/08/17 16:10 02/08/17 20:13 02/08/17 20:35 02/08/17 21:02 Bedside Glucose 78 mg/dl 52 mg/dl 106 mg/dl Activated Partial Thromboplast Time 41.3 SECONDS Partial Thromboplastin Ratio 1.6 Test 02/08/17 21:03 02/09/17 00:01 02/09/17 00:35 02/09/17 03:52 Troponin I 0.382 ng/ml Lipase 51 U/L Bedside Glucose 69 mg/dl 80 mg/dl 73 mg/dl Test 02/09/17 04:18 02/09/17 06:33 02/09/17 10:27 02/09/17 11:11 White Blood Count 6.65 K/uL Red Blood Count 2.58 M/uL Hemoglobin 9.0 g/dL Hematocrit 28.2 % Mean Corpuscular Volume 109.3 fL Mean Corpuscular Hemoglobin 34.9 pg Mean Corpuscular Hemoglobin Concent 31.9 g/dl RDW Standard Deviation 68.9 fL RDW Coefficient of Variation 17.2 % Platelet Count 132 K/uL Mean Platelet Volume 10.8 fL Activated Partial Thromboplast Time 55.3 SECONDS Partial Thromboplastin Ratio 2.1 Sodium Level 135 mmol/L Potassium Level 3.9 mmol/L Chloride Level 101 mmol/L Carbon Dioxide Level 23 mmol/L Anion Gap 11.0 mmol/L Blood Urea Nitrogen 81 mg/dl Creatinine 11.00 mg/dl Est Creatinine Clear Calc Drug Dose 5.8 ml/min Estimated GFR () 3.7 Estimated GFR (Non- 3.2 BUN/Creatinine Ratio 7.4 Random Glucose 63 mg/dl Calcium Level 7.8 mg/dl Total Creatine Kinase 684 U/L 937 U/L Creatine Kinase MB 6.8 ng/ml 8.7 ng/ml Creatine Kinase MB Ratio 1.0 0.9 Troponin I 0.587 ng/ml 0.518 ng/ml Triglycerides Level 89 mg/dl Cholesterol Level 87 mg/dl HDL Cholesterol 36 mg/dl LDL Cholesterol, Calculated 33 mg/dl VLDL Cholesterol, Calculated 18 mg/dl Cholesterol/HDL Ratio 2.4 Bedside Glucose 79 mg/dl 115 mg/dl Total Bilirubin 1.3 mg/dl Direct Bilirubin 0.3 mg/dl Aspartate Amino Transf (AST/SGOT) 40 U/L Alanine Aminotransferase (ALT/SGPT) 50 U/L Alkaline Phosphatase 89 U/L Total Protein 6.3 gm/dl Albumin 3.3 gm/dl Lipase 54 U/L
--- NOTE | 2017-02-09 14:12 | Surgery Consultation ---
Consultation Date of Service Feb 09, 2017. (Lilibeth Osorio, RENETTA) Chief Complaint abd pain, renal art stenosis (Lilibeth Osorio, RENETTA) History of Present Illness The patient is a 71 year old female with multiple medical problems, including ESRD on HD, seen in consultation today for RUQ and flank pain in association with mesenteric stenosis and renal art stenosis. According to pt, pain began suddenly yesterday and has not abated, but medication is helping slightly. Also admits cough and SOB which brought her to [facility]. Chart review indicates she takes 5 antihypertensives including clonidine, and BP was 200/100 on arrival. Pt admits fatigue, malaise. Denies BETANCOURT, fever, chills, chest pain, N/V , rest pain, claudication, other complaints. (Lilibeth Osorio, RENETTA) Vitals Vital Signs Past 12 Hours Date Time Temp Pulse Resp B/P (MAP) Pulse Ox O2 Delivery O2 Flow Rate FiO2 02/09/17 13:45 120 108/38 02/09/17 13:30 115 104/39 02/09/17 13:15 117 117/62 02/09/17 13:00 111 127/55 02/09/17 12:45 105 128/48 02/09/17 12:30 115 113/52 02/09/17 12:15 111 124/57 02/09/17 12:00 113 116/50 02/09/17 12:00 Nasal Cannula 3.0 02/09/17 11:52 120 116/52 02/09/17 11:45 37.4 108 104/55 (71) 02/09/17 11:44 37.5 85 19 130/68 (88) 97 Nasal Cannula 5.0 02/09/17 11:16 110 20 96 Nasal Cannula 4.0 02/09/17 08:00 Nasal Cannula 3.0 02/09/17 07:37 Nasal Cannula 6.0 02/09/17 07:14 112 22 96 Nasal Cannula 4.0 02/09/17 07:12 36.8 115 20 127/82 (97) 93 5.0 02/09/17 05:57 113 122/70 02/09/17 04:35 36.9 113 20 122/70 (87) 94 Nasal Cannula 5.0 02/09/17 04:12 94 Nasal Cannula 6.0 (Lilibeth Osorio, KARLENEC) Allergies Coded Allergies: No Known Allergies (Verified , 02/08/17) Home Medications Scheduled Amlodipine (Norvasc), 10 MG PO QAM Calcium Acetate (Phoslo 667 Mg), 2 CAP PO TIDM Clonidine Hcl (Catapres), 0.1 MG PO BID Cyanocobalamin (Cyanocobalamin), 1,000 MCG IM MONTHLY Ergocalciferol (Vitamin D 16150 Unit), 50,000 UNIT PO MONTHLY Fluticasone Prop/Salmeterol (Advair Diskus 250/50 60 Dose), 2 PUFF INH BID Furosemide (Furosemide), 40 MG PO DAILY Home O2 Therapy (Oxygen), 2.5 LITERS NA CONTINOUS Insulin Aspart (Novolog Flexpen), 2-3 UNITS SQ TIDM Insulin Glargine (Lantus), 26 UNITS SC QAM Lactobacillus (Lactobacillus), 1 TAB PO UD Losartan Potassium (Cozaar), 100 MG PO DAILY Methylprednisolone (Medrol Dosepak), 1 PKT PO UD Metoprolol Tartrate (Lopressor) (Lopressor), 25 MG PO BID Prednisolone Acetate (Ophth) (Pred Forte 1% Oph), 1 DROPS OPL DAILY Umeclidinium [place] (Incruse Ellipta), 1 PUFF INH DAILY Valacyclovir Hcl (Valtrex), 1,000 MG PO DAILY Vitamin B Cmplx/Vitc/Folic Ac (Nephrocaps), 1 CAP PO DAILY Warfarin Sodium (Warfarin Sodium), 5-10 MG PO DAILY Scheduled PRN Acetaminophen (Apap), 650 MG PO Q6 PRN for Pain Albuterol Hfa (Ventolin Hfa), 2 PUFFS INH Q4 PRN for SOB/Wheezing Ipratropium-Albuterol (Duoneb), 1 TREATMENT INH QID PRN for SOB/Wheezing Lidocaine-Prilocaine (Fcpmoeisu-Nlfozkxzub-Yzjl 2.5-2.5 %), 1 APPLN TOP UD PRN for PRIOR TO DIALYSIS Pseudoephedrine-Guaifenesin (Cvs Mucus D Extended Rele 60-600 mg), 1 TAB PO Q12 PRN for Nasal Congestion Miscellaneous Medications Epoetin [place] (Procrit) Problem List Medical Problems: (1) A-fib (2) Adrenal adenoma (3) Anemia of chronic disease (4) Atrial fibrillation with RVR (5) AV fistula (6) CHF (congestive heart failure) (7) Chronic respiratory failure (8) COPD, moderate (9) DM type 2 (diabetes mellitus, type 2) (10) Dyslipidemia (11) ESRD (end stage renal disease) on dialysis (12) H/O cardiovascular stress test (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 (14) History of Helicobacter pylori infection (15) Hypertension Nos (16) Moderate mitral regurgitation (17) Obesity (18) Osteoarthritis (19) Pancreatic cyst (20) Psoriasis (21) Renal cyst (22) Respiratory failure, acute (23) SOB (shortness of breath) Surgical Problems: (1) H/O colonoscopy (2) H/O nasal polypectomy (3) History of cataract surgery (4) S/P appendectomy (5) S/P cholecystectomy (6) S/P left oophorectomy (7) S/P ASH (total abdominal hysterectomy) (Lilibeth Osorio PA-C) Surgical / Medical History Hx Cardiac Surgery: No Hx Abdominal Surgery: Yes (ASH/LSO, cholecystectomy, appendectomy) Hx Cancer Surgery: No Hx Thoracic Surgery: No Hx Orthopedic: No Hx Urinary Tract Surgery: No Past Medical/Surgical History: Diabetes, Heart Disease, High Cholesterol, Hypertension, Kidney Disease, Liver Disease (Lilibeth Osorio, KARLENEC) Family History Diabetes mellitus FATHER MOTHER BROTHER FH: cancer BROTHER FH: heart disease FATHER Hypertension BROTHER Kidney disease BROTHER (Lilibeth Osorio, KARLENEC) Diabetes mellitus FATHER MOTHER BROTHER FH: cancer BROTHER FH: heart disease FATHER Hypertension BROTHER Kidney disease BROTHER (Augustin Peter M.D.) Social History Smoking Status: Current Every Day Smoker Hx Tobacco Use In Past Year?: Yes Hx Alcohol Use - Type & Amnt: No Hx Substance Use -Type & Amnt: No (Lilibeth Osorio, KARLENEC) Review of Systems Constitutional: + malaise, No chills, No fever Skin: No change in color Eyes: No visual changes ENMT: No sore throat Respiratory: + cough, + VÁSQUEZ, + short of breath, No hemoptysis Cardiovascular: No chest pain, No palpitations, No syncope Gastrointestinal: + abdominal pain, No nausea, No vomiting Neurologic: + lethargy, No dizziness, No headache, No numbness, No tingling ( Lilibeth Osorio PA-C) Physical Exam Constitutional: General Apperance: well-nourished, well-developed, obese Level of Distress: NAD, acutely ill, chronically ill Psychiatric: Mental Status: normal mood (sleepy, but wakes to voice and converses), normal affect Orientation: oriented except where noted, to time, to place, to person Memory: recent memory normal, remote memory normal Head: normocephalic, atraumatic Eyes: EOM: EOMI ENMT: normal ENT inspection, hearing grossly normal Neck: supple, trachea midline Lungs: Respiratory effort: no dyspnea Auscultation: no rales/crackles, no rhonchi, expiratory wheezing, pertinent finding (coarse cough) Cardiovascular: Apical Impulse: not displaced Heart Auscultation: no rubs, no gallops, pertinent finding (irregular) Peripheral Pulses: Pulses: full and equal, in all extremities except if noted Bruits: none appreciated Carotid Pulse: normal on the left, normal on the right Brachial Pulses: normal on the left, normal on the right Radial Pulse: normal on the left, normal on the right Femoral Pulse: normal on the left, normal on the right Posterior Tibialis Pulse: decreased on the left, decreased on the right Dorsalis Pedis Pulse: decreased on the left, decreased on the right Abdomen: Bowel Sounds: normal Inspection & Palpation: soft, non-distended, RUQ tenderness Musculoskeletal: normal strength (5/5 throughout), normal tone Extremities: Upper Right: no cyanosis, no edema, no varicosities Upper Left: no cyanosis, no edema, no varicosities Lower Right: no cyanosis, no edema, no varicosities Lower Left: no cyanosis, no edema, no varicosities Neurologic: Cranial Nerves: grossly intact Sensation: grossly intact (Lilibeth Osorio PA-C) Assessment and Plan ASSESSMENT and PLAN: R sided abd pain mesenteric stenosis, mild renal art stenosis, HTN Cough Pt CTA indicates renal art stenosis, but pt appears ill. Will discuss with Dr Peter whether performing angio is indicated. Could be done as outpt, as this is not contributing to pt need for hospital stay. Mesenteric stenosis not contributing to abd pain, no intervention indicated. Will discuss with pt furhter tomorrow. (Lilibeth Osorio, PA-C) Patient was seen, examined, and chart reviewed. Agree with exam and treatment plan of the Vascular PA. (Augustin Peter M.D.)
[2017-02-09] MEDS ORDERED: DILTIAZEM BOLUS / DRIP IV STA (15:43)
[2017-02-09] MEDS ORDERED: DILTIAZEM HCL 5 MG/ML 5 ML VIAL BOLUS/OMNI IV ONE (16:00)
[2017-02-09] MEDS: WARFARIN SOD 7.5 MG TAB PO SCH (16:58)
[2017-02-09 17:15] LABS: CKMB/CK RATIO 0.7 (0-3.0)
[2017-02-09] MEDS: DILTIAZEM HCL INJ 125 MG in DEXTROSE 5% 100ML IV PRN (17:55)
--- NOTE | 2017-02-09 22:06 | Progress Note ---
Medicine Progress Note Date & Time of Visit: Feb 09, 2017 at 19:30 . Subjective Feels better today, but tired. Right-sided chest / upper abdominal pain resolved. Occasional nonproductive cough. Mild SOB. Anorexic, but no nausea or vomiting. Had a couple loose stools. Hypoglycemic last evening. . Objective Vital Signs Label Value Date Time Patient Temperature 36.8 C. 02/09/17711 Pulse 115 02/09/17711 Location Right Brachial Respiratory Rate 20 02/09/17711 Blood Pressure Assessment 127/82 (97) 02/09/17711 Bedside Pulse Oximetry 93 % 02/09/17711 Item Value Date Time Oxygen Flow Rate 5.0 L/min 02/09/17711 Physical Exam: General- sitting in chair, no distress Eyes- anicteric Neck- + JVD Lungs- decreased breath sounds at bases Heart- irregular, tachycardic Abdomen- + BS, soft, nontender Extremities- 1+ pretibial edema, no calf tenderness Neuro- alert, left ptosis (chronic per patient) . Laboratory Results: Last 24 Hours Test 02/09/17 00:01 02/09/17 00:35 02/09/17 03:52 02/09/17 04:18 Bedside Glucose 69 mg/dl 80 mg/dl 73 mg/dl White Blood Count 6.65 K/uL Red Blood Count 2.58 M/uL Hemoglobin 9.0 g/dL Hematocrit 28.2 % Mean Corpuscular Volume 109.3 fL Mean Corpuscular Hemoglobin 34.9 pg Mean Corpuscular Hemoglobin Concent 31.9 g/dl RDW Standard Deviation 68.9 fL RDW Coefficient of Variation 17.2 % Platelet Count 132 K/uL Mean Platelet Volume 10.8 fL Activated Partial Thromboplast Time 55.3 SECONDS Partial Thromboplastin Ratio 2.1 Sodium Level 135 mmol/L Potassium Level 3.9 mmol/L Chloride Level 101 mmol/L Carbon Dioxide Level 23 mmol/L Anion Gap 11.0 mmol/L Blood Urea Nitrogen 81 mg/dl Creatinine 11.00 mg/dl Est Creatinine Clear Calc Drug Dose 5.8 ml/min Estimated GFR () 3.7 Estimated GFR (Non- 3.2 BUN/Creatinine Ratio 7.4 Random Glucose 63 mg/dl Calcium Level 7.8 mg/dl Total Creatine Kinase 684 U/L Creatine Kinase MB 6.8 ng/ml Creatine Kinase MB Ratio 1.0 Troponin I 0.587 ng/ml Triglycerides Level 89 mg/dl Cholesterol Level 87 mg/dl HDL Cholesterol 36 mg/dl LDL Cholesterol, Calculated 33 mg/dl VLDL Cholesterol, Calculated 18 mg/dl Cholesterol/HDL Ratio 2.4 Test 02/09/17 06:33 02/09/17 09:36 02/09/17 10:27 02/09/17 11:11 Bedside Glucose 79 mg/dl 160 mg/dl 115 mg/dl Total Bilirubin 1.3 mg/dl Direct Bilirubin 0.3 mg/dl Aspartate Amino Transf (AST/SGOT) 40 U/L Alanine Aminotransferase (ALT/SGPT) 50 U/L Alkaline Phosphatase 89 U/L Total Creatine Kinase 937 U/L Creatine Kinase MB 8.7 ng/ml Creatine Kinase MB Ratio 0.9 Troponin I 0.518 ng/ml Total Protein 6.3 gm/dl Albumin 3.3 gm/dl Lipase 54 U/L Test 02/09/17 14:27 02/09/17 16:05 02/09/17 16:28 02/09/17 19:56 Bedside Glucose 108 mg/dl 109 mg/dl 197 mg/dl Total Creatine Kinase 745 U/L Creatine Kinase MB 5.4 ng/ml Creatine Kinase MB Ratio 0.7 Troponin I 0.428 ng/ml Assessment & Plan ACUTE ON CHRONIC LEFT VENTRICULAR DIASTOLIC HEART FAILURE Presented with worsening pulmonary vascular congestion. Fluid management via hemodialysis. CHEST / ABDOMINAL PAIN Consider PE, aortic dissection, [place]. CTA chest, abdomen did not show any evidence of aortic dissection or pulmonary embolism. Cardiology and Pulmonary consulted. Cardiac markers elevated as discussed below. ELEVATED CARDIAC MARKERS Right-sided chest pain yesterday, resolved. Peak troponin 0.587, peak total CPK 937, peak CPK-MB 8.7. EKG's show AF with lateral ST depression. No segmental wall motion abnormalities on echo. ? non-STEMI, ? secondary to rapid AF. LDL-C = 33. Started antiplatelet therapy with clopidogrel (no aspirin due to concerns about possible duodenal ulcer / duodenitis). NTP added. Continue metoprolol. Further management per Cardiology. ATRIAL FIBRILLATION Rate fast. Started on diltiazem. Continue metoprolol. Titrate anticoagulants. COPD Continue usual pulmonary meds. CHRONIC HYPOXIC RESPIRATORY FAILURE Secondary to COPD. On home O2. Continue supplemental O2, titrate as necessary. PLEURAL EFFUSIONS Probably secondary to diastolic CHF. Management per Pulmonary. HYPERTENSION Continue metoprolol, amlodipine, losartan, clonidine. ABDOMINAL PAIN Aortic aneurysm / rupture ruled out by CTA. Possible duodenitis noted on CT. LFT's slightly elevated. Lipase normal. Started on PPI. GI consulted. CKD V Hemodialysis per Nephrology. DM TYPE 2 Well-controlled at home. Hgb A1C = 6.1 on 02/01/17. Hypoglycemic last evening. Hold Lantus, resume when blood sugars rise. Continue NovoLog. VTE PROPHYLAXIS SCD's. IV heparin / titrate warfarin. DISPOSITION Expected discharge to home. Family Medicine follow-up with Dr. Armando. . Consultants: Nephrology Cardiology Pulmonary GI . Current Inpatient Medications: Current Inpatient Medications Medications (Trade) Dose Ordered Sig/Joan Route Start Time Stop Time Status Last Admin Dose Admin Acetaminophen (Tylenol Tab) 650 mg Q6 PRN PO 02/08/17 05:15 03/10/17 05:14 Albuterol (Ventolin Hfa Inhaler) 2 puffs Q4 PRN INH 02/08/17 05:15 03/10/17 05:14 Amlodipine Besylate (Norvasc Tab) 10 mg QAM PO 02/08/17 09:00 03/10/17 08:59 Future Hold 02/09/17 08:12 10 MG Calcium Acetate (Phoslo Cap) 1,334 mg TIDM PO 02/08/17 07:30 03/10/17 07:59 02/09/17 16:57 1,334 MG Clonidine HCl (Catapres Tab) 0.1 mg BID PO 02/08/17 09:00 03/10/17 08:59 02/09/17 20:18 0.1 MG Salmeterol Xinafoate/ Fluticasone (Advair Diskus 250/50 Inh) 1 puff BID INH 02/08/17 09:00 03/10/17 08:59 02/09/17 20:19 1 PUFF Furosemide (Lasix Tab) 40 mg DAILY PO 02/08/17 09:00 03/10/17 08:59 Future Hold Insulin Glargine (Lantus Solostar Pen) 26 units QAM SC 02/08/17 09:00 03/10/17 08:59 Future Hold 02/08/17 09:50 26 UNITS Lactobacillus Acidophilus (Floranex Tab) 1 tab DAILY PO 02/08/17 09:00 03/10/17 08:59 02/09/17 08:12 1 TAB Losartan Potassium (coZAAR TAB) 100 mg DAILY PO 02/08/17 09:00 03/10/17 08:59 02/09/17 08:13 100 MG Prednisolone Acetate (Pred Forte 1% Oph Susp) 1 drops DAILY OPL 02/08/17 09:00 03/10/17 08:59 02/09/17 08:15 1 DROPS Vitamin B Complex/ Vit C/Folic Acid (Nephrocaps) 1 cap DAILY PO 02/08/17 09:00 03/10/17 08:59 02/09/17 08:13 1 CAP Miscellaneous Information (Order Awaiting Action) 1 ea QS N/A 02/08/17 08:00 03/10/17 07:59 Glucose (Glucose 40% Gel) 15-30 GRAMS 15 GRAMS... UD PRN PO 02/08/17 05:15 03/10/17 05:14 Glucose (Glucose Chew Tab) 4-8 Tablets 4 Tabl... UD PRN PO 02/08/17 05:15 03/10/17 05:14 Dextrose (Dextrose 50% 50ML Syringe) 25-50ML OF 50% DW IV FOR... UD PRN IV 02/08/17 05:15 03/10/17 05:14 02/08/17 20:19 25 ML Glucagon (Glucagon Inj) 1 mg UD PRN SQ 02/08/17 05:15 03/10/17 05:14 Warfarin Sodium (Coumadin Tab) 7.5 mg DAILY@16 PO 02/08/17 16:00 03/10/17 15:59 02/09/17 16:58 7.5 MG Albuterol/ Ipratropium (Duoneb) 3 ml QIDR INH 02/08/17 08:00 03/10/17 07:59 02/09/17 19:14 3 ML Valacyclovir HCl (Valtrex Tab) 1,000 mg DAILY PO 02/08/17 09:00 03/10/17 08:59 02/09/17 08:13 1,000 MG Insulin Aspart (novoLOG ASPART) SLIDING SCALE If C... ACHS SC 02/08/17 07:00 03/10/17 06:59 02/09/17 20:21 1 UNITS Ioversol (Optiray 320) 100 ml UD PRN IV 02/08/17 12:15 02/12/17 12:14 Heparin Sodium (Porcine) 82572 unit/Dextrose 500 ml @ 30 mls/hr [id number] PRN IV 02/08/17 14:30 03/10/17 14:29 02/09/17 08:26 30 MLS/HR Pantoprazole Sodium 40 mg/ Syringe 10 ml @ 5 mls/min DAILY@ IV 02/09/17 09:00 03/11/17 08:59 02/09/17 20:16 5 MLS/MIN Clopidogrel Bisulfate (plAVix TAB) 75 mg QAM PO 02/09/17 09:00 03/11/17 08:59 02/09/17 08:13 75 MG Metoprolol Tartrate (Lopressor Tab) 50 mg BID PO 02/09/17 09:00 03/11/17 08:59 02/09/17 20:19 50 MG Nitroglycerin (Nitroglycerin 2% Oint) 1 inch Q6 EXT 02/09/17 06:00 03/11/17 05:59 02/09/17 17:00 1 INCH Lidocaine (Lidoderm Patch 5%) 1 patch QAM TD 02/10/17 09:00 03/12/17 08:59 Miscellaneous (Remove Lidoderm Patch) 1 ea DAILY@21 N/A 02/09/17 21:00 03/11/17 20:59 02/09/17 20:27 1 EA Diltiazem HCl 125 mg/Dextrose 125 ml @ 0 mls/hr Q0M PRN IV 02/09/17 16:01 03/11/17 16:00 02/09/17 17:55 5 MLS/HR
[2017-02-10] VITALS (13 sets, daily range): BP systolic 99–134; BP diastolic 53–74; PULSE 65–118; TEMP 36.6–37.6; O2SAT 91–99
[2017-02-10] MEDS: HEPARIN 25000 UNIT/ D5W 500 ML (PHARMACY PREPARED) IV PRN ×4 (03:52→21:01)
[2017-02-10 04:54] LABS: BASO % 0.3 %; BASO ABS # 0.02 K/uL (0-0.2); EOS % 0.3 %; HEMATOCRIT 28.9 % (37-47); IG% 0.3 %; LYMPH % 10.7 %; LYMPH ABS # 0.72 K/uL (1.2-3.4); MEAN CELL VOLUME 111.2 fL (80-100); MEAN CORPUSCULAR HEMOGLOBIN 34.6 pg (25-34); MEAN CORPUSCULAR HGB CONC 31.1 g/dl (32-36); MEAN PLATELET VOLUME 11.1 fL (7.4-10.4); MONO % 12.3 %; NEUT % 76.1 %; PLATELET COUNT 133 K/uL (130-400); WHITE BLOOD COUNT 6.75 K/uL (4.8-10.8)
[2017-02-10] MEDS: DILTIAZEM HCL INJ 125 MG in DEXTROSE 5% 100ML IV PRN (05:05)
[2017-02-10 05:15] LABS: INR 1.4 (0.9-1.1); PARTIAL THROMBOPLASTIN RATIO 2.5; PROTHROMBIN TIME (PATIENT) 15.4 SECONDS (9.0-12.0)
[2017-02-10 05:22] LABS: COMPLETE YES; HYPERSEGMENTED POLYS 1+
[2017-02-10 05:25] LABS: ALB/GLOB RATIO 1.2 (0.9-2); BUN/CREATININE RATIO 5.6 (10-20); CALCIUM 8.2 mg/dl (8.5-10.1); CKMB/CK RATIO 0.5 (0-3.0); CREATININE 8.21 mg/dl (0.60-1.20); POTASSIUM 4.3 mmol/L (3.5-5.1)
[2017-02-10] MEDS ORDERED: VANCOMYCIN INJ 1,500 MG in SODIUM CHLORIDE 0.9% 500ML 500 ML IV SCH (05:30)
[2017-02-10] MEDS ORDERED: VANCOMYCIN CONSULT ACTIVE PRN (05:45)
[2017-02-10] MEDS: NITROGLYCERIN OINT 2% 1GM PACKET EXT SCH ×4 (05:54→23:30)
[2017-02-10] MEDS: ACETAMINOPHEN 325 MG TAB PO PRN ×2 (06:47→14:10)
[2017-02-10] MEDS: ALBUT/IPRATROP 3MG/0.5MG NEB 3 ML VIAL INH SCH ×4 (06:54→18:55)
--- NOTE | 2017-02-10 07:22 | Nephrology Progress Note ---
Nephrology Progress Note Date of Service: Feb 10, 2017. Subjective 71 yo female with esrd with paroxysmal afib who presented with worsening ruq pain and underwent dialysis the past two days taking off about 3 liters of fluids. pt continues to have significant pain in the ruq and does not look comfortable. did have a fever of 38 last night as well. vancomycin started. currently on heparin drip, dilt drip. Objective Date Time Temp Pulse Resp B/P (MAP) Pulse Ox O2 Delivery O2 Flow Rate FiO2 02/10/17 06:54 92 20 93 Nasal Cannula 3.0 02/10/17 04:00 37.6 84 18 113/53 (73) 95 Nasal Cannula 3.0 Humidified Oxygen 02/10/17 04:00 Nasal Cannula 3.0 Humidified Oxygen 02/10/17 00:05 Nasal Cannula 3.0 Humidified Oxygen 02/09/17 23:45 37.6 84 18 113/53 (73) 95 Nasal Cannula 3.0 Humidified Oxygen 02/09/17 20:00 Nasal Cannula 3.0 02/09/17 19:52 38.0 114 16 130/65 (86) 97 Nasal Cannula 3.0 02/09/17 19:16 118 20 96 Nasal Cannula 4.0 02/09/17 18:03 112 18 141/68 (92) 98 Nasal Cannula 4.0 02/09/17 17:55 113 132/66 (88) 02/09/17 16:00 Nasal Cannula 4.0 02/09/17 15:44 37.1 104 138/59 (85) 02/09/17 15:38 36.9 141 20 149/84 (105) 92 Nasal Cannula 4.0 02/09/17 14:36 76 20 92 Nasal Cannula 4.0 02/09/17 14:30 126 128/68 02/09/17 14:15 122 134/46 02/09/17 14:00 121 131/56 02/09/17 13:45 120 108/38 02/09/17 13:30 115 104/39 02/09/17 13:15 117 117/62 02/09/17 13:00 111 127/55 02/09/17 12:45 105 128/48 02/09/17 12:30 115 113/52 02/09/17 12:15 111 124/57 02/09/17 12:00 113 116/50 02/09/17 12:00 Nasal Cannula 3.0 02/09/17 11:52 120 116/52 02/09/17 11:45 37.4 108 104/55 (71) 02/09/17 11:44 37.5 85 19 130/68 (88) 97 Nasal Cannula 5.0 02/09/17 11:16 110 20 96 Nasal Cannula 4.0 02/09/17 08:00 Nasal Cannula 3.0 02/09/17 07:37 Nasal Cannula 6.0 Physical Exam: General-aaox3, uncomfortable Eyes-no scleral icterus ENT-mmm Neck-supple Lungs-decreased at bases Heart-tachycardia Abdomen-+tenderness Extremities-mild edema Neuro-nonfocal Current Inpatient Medications Medications (Trade) Dose Ordered Sig/Joan Route Start Time Stop Time Status Last Admin Dose Admin Acetaminophen (Tylenol Tab) 650 mg Q6 PRN PO 02/08/17 05:15 03/10/17 05:14 02/10/17 06:47 650 MG Albuterol (Ventolin Hfa Inhaler) 2 puffs Q4 PRN INH 02/08/17 05:15 03/10/17 05:14 Amlodipine Besylate (Norvasc Tab) 10 mg QAM PO 02/08/17 09:00 03/10/17 08:59 Future Hold 02/09/17 08:12 10 MG Calcium Acetate (Phoslo Cap) 1,334 mg TIDM PO 02/08/17 07:30 03/10/17 07:59 02/09/17 16:57 1,334 MG Clonidine HCl (Catapres Tab) 0.1 mg BID PO 02/08/17 09:00 03/10/17 08:59 02/09/17 20:18 0.1 MG Salmeterol Xinafoate/ Fluticasone (Advair Diskus 250/50 Inh) 1 puff BID INH 02/08/17 09:00 03/10/17 08:59 02/09/17 20:19 1 PUFF Furosemide (Lasix Tab) 40 mg DAILY PO 02/08/17 09:00 03/10/17 08:59 Future Hold Insulin Glargine (Lantus Solostar Pen) 26 units QAM SC 02/08/17 09:00 03/10/17 08:59 Future Hold 02/08/17 09:50 26 UNITS Lactobacillus Acidophilus (Floranex Tab) 1 tab DAILY PO 02/08/17 09:00 03/10/17 08:59 02/09/17 08:12 1 TAB Losartan Potassium (coZAAR TAB) 100 mg DAILY PO 02/08/17 09:00 03/10/17 08:59 02/09/17 08:13 100 MG Prednisolone Acetate (Pred Forte 1% Oph Susp) 1 drops DAILY OPL 02/08/17 09:00 03/10/17 08:59 02/09/17 08:15 1 DROPS Vitamin B Complex/ Vit C/Folic Acid (Nephrocaps) 1 cap DAILY PO 02/08/17 09:00 03/10/17 08:59 02/09/17 08:13 1 CAP Miscellaneous Information (Order Awaiting Action) 1 ea QS N/A 02/08/17 08:00 03/10/17 07:59 Glucose (Glucose 40% Gel) 15-30 GRAMS 15 GRAMS... UD PRN PO 02/08/17 05:15 03/10/17 05:14 Glucose (Glucose Chew Tab) 4-8 Tablets 4 Tabl... UD PRN PO 02/08/17 05:15 03/10/17 05:14 Dextrose (Dextrose 50% 50ML Syringe) 25-50ML OF 50% DW IV FOR... UD PRN IV 02/08/17 05:15 03/10/17 05:14 02/08/17 20:19 25 ML Glucagon (Glucagon Inj) 1 mg UD PRN SQ 02/08/17 05:15 03/10/17 05:14 Warfarin Sodium (Coumadin Tab) 7.5 mg DAILY@16 PO 02/08/17 16:00 03/10/17 15:59 02/09/17 16:58 7.5 MG Albuterol/ Ipratropium (Duoneb) 3 ml QIDR INH 02/08/17 08:00 03/10/17 07:59 02/10/17 06:54 3 ML Valacyclovir HCl (Valtrex Tab) 1,000 mg DAILY PO 02/08/17 09:00 03/10/17 08:59 02/09/17 08:13 1,000 MG Insulin Aspart (novoLOG ASPART) SLIDING SCALE If C... ACHS SC 02/08/17 07:00 03/10/17 06:59 02/09/17 20:21 1 UNITS Ioversol (Optiray 320) 100 ml UD PRN IV 02/08/17 12:15 02/12/17 12:14 Heparin Sodium (Porcine) 50122 unit/Dextrose 500 ml @ 30 mls/hr [id number] PRN IV 02/08/17 14:30 03/10/17 14:29 02/10/17 03:52 30 MLS/HR Pantoprazole Sodium 40 mg/ Syringe 10 ml @ 5 mls/min DAILY@ IV 02/09/17 09:00 03/11/17 08:59 02/09/17 20:16 5 MLS/MIN Clopidogrel Bisulfate (plAVix TAB) 75 mg QAM PO 02/09/17 09:00 03/11/17 08:59 02/09/17 08:13 75 MG Metoprolol Tartrate (Lopressor Tab) 50 mg BID PO 02/09/17 09:00 03/11/17 08:59 02/09/17 20:19 50 MG Nitroglycerin (Nitroglycerin 2% Oint) 1 inch Q6 EXT 02/09/17 06:00 03/11/17 05:59 02/10/17 05:54 1 INCH Lidocaine (Lidoderm Patch 5%) 1 patch QAM TD 02/10/17 09:00 03/12/17 08:59 Miscellaneous (Remove Lidoderm Patch) 1 ea DAILY@21 N/A 02/09/17 21:00 03/11/17 20:59 02/09/17 20:27 1 EA Diltiazem HCl 125 mg/Dextrose 125 ml @ 0 mls/hr Q0M PRN IV 02/09/17 16:01 03/11/17 16:00 02/10/17 05:05 10 MLS/HR Vancomycin HCl 1500 mg/Sodium Chloride 530 ml @ 200 mls/hr TODAY@0530 IV 02/10/17 05:30 02/10/17 08:08 02/10/17 05:53 200 MLS/HR Vancomycin HCl (Consult) 1 ea UD PRN N/A 02/10/17 05:45 03/12/17 05:44 Last 24 Hours Test 02/09/17 09:36 02/09/17 10:27 02/09/17 11:11 02/09/17 14:27 Bedside Glucose 160 mg/dl 115 mg/dl 108 mg/dl Total Bilirubin 1.3 mg/dl Direct Bilirubin 0.3 mg/dl Aspartate Amino Transf (AST/SGOT) 40 U/L Alanine Aminotransferase (ALT/SGPT) 50 U/L Alkaline Phosphatase 89 U/L Total Creatine Kinase 937 U/L Creatine Kinase MB 8.7 ng/ml Creatine Kinase MB Ratio 0.9 Troponin I 0.518 ng/ml Total Protein 6.3 gm/dl Albumin 3.3 gm/dl Lipase 54 U/L Test 02/09/17 16:05 02/09/17 16:28 02/09/17 19:56 02/10/17 03:51 Bedside Glucose 109 mg/dl 197 mg/dl Total Creatine Kinase 745 U/L Creatine Kinase MB 5.4 ng/ml Creatine Kinase MB Ratio 0.7 Troponin I 0.428 ng/ml Test 02/10/17 04:31 02/10/17 06:26 White Blood Count 6.75 K/uL Red Blood Count 2.60 M/uL Hemoglobin 9.0 g/dL Hematocrit 28.9 % Mean Corpuscular Volume 111.2 fL Mean Corpuscular Hemoglobin 34.6 pg Mean Corpuscular Hemoglobin Concent 31.1 g/dl Platelet Count 133 K/uL Mean Platelet Volume 11.1 fL Neutrophils (%) (Auto) 76.1 % Lymphocytes (%) (Auto) 10.7 % Monocytes (%) (Auto) 12.3 % Eosinophils (%) (Auto) 0.3 % Basophils (%) (Auto) 0.3 % Neutrophils # (Auto) 5.14 K/uL Lymphocytes # (Auto) 0.72 K/uL Monocytes # (Auto) 0.83 K/uL Eosinophils # (Auto) 0.02 K/uL Basophils # (Auto) 0.02 K/uL RDW Standard Deviation 68.2 fL RDW Coefficient of Variation 17.0 % Immature Granulocyte % (Auto) 0.3 % Immature Granulocyte # (Auto) 0.02 K/uL Hypersegmented Polys 1+ Macrocytosis PRESENT Prothrombin Time 15.4 SECONDS Prothromb Time International Ratio 1.4 Activated Partial Thromboplast Time 65.3 SECONDS Partial Thromboplastin Ratio 2.5 Sodium Level 134 mmol/L Potassium Level 4.3 mmol/L Chloride Level 96 mmol/L Carbon Dioxide Level 26 mmol/L Anion Gap 12.0 mmol/L Blood Urea Nitrogen 47 mg/dl Creatinine 8.21 mg/dl Est Creatinine Clear Calc Drug Dose 7.8 ml/min Estimated GFR () 5.2 Estimated GFR (Non- 4.5 BUN/Creatinine Ratio 5.6 Random Glucose 248 mg/dl Calcium Level 8.2 mg/dl Magnesium Level 2.0 mg/dl Total Bilirubin 1.2 mg/dl Aspartate Amino Transf (AST/SGOT) 29 U/L Alanine Aminotransferase (ALT/SGPT) 40 U/L Alkaline Phosphatase 77 U/L Total Creatine Kinase 521 U/L Creatine Kinase MB 2.4 ng/ml Creatine Kinase MB Ratio 0.5 Troponin I 0.231 ng/ml Total Protein 6.5 gm/dl Albumin 3.5 gm/dl Globulin 3.0 gm/dl Albumin/Globulin Ratio 1.2 Procalcitonin 2.80 ng/ml Bedside Glucose 273 mg/dl Date/Time Source Procedure Growth Status 02/10/17 04:36 Blood Blood Culture Pending Received 02/10/17 04:31 Blood Blood Culture Pending Received Assessment & Plan ESRD-was planning on doing daily dialysis to help remove fluid and see if pain is related to volume overload. however pt with fever last night and not comfortable with continued pain. hold on dialysis today and re-evaluate tomorrow.
[2017-02-10] MEDS: CALCIUM ACETATE 667MG GELCAP PO SCH ×3 (07:30→16:02)
[2017-02-10] MEDS: INCRUSE ELLIPTA~ORDER AWAITING ACTION SCH ×3 (08:00→12:46)
[2017-02-10] MEDS ORDERED: NURSING VERBAL MED ORDER ONE (08:15)
--- NOTE | 2017-02-10 08:26 | Pharmacy Progress Note ---
Pharmacy Antibiotic Consult Date of Service: Feb 10, 2017. Pharmacy Dosing Scope Pharmacy is consulted to initiate vancomycin IV dosing therapy, order appropriate labs and adjust drug dose/frequency. Subjective The patient is a 71 year old female admitted on Feb 08, 2017 at 04:42. Objective Height (Feet): 5 Height (Inches): 6.00 Weight (Kilograms): 102.700 Lab Results (24hrs): Test 02/09/17 10:27 02/09/17 16:28 02/09/17 19:56 02/10/17 03:51 Total Bilirubin 1.3 mg/dl (0.2-1) Direct Bilirubin 0.3 mg/dl (0-0.2) Aspartate Amino Transf (AST/SGOT) 40 U/L (15-37) Alanine Aminotransferase (ALT/SGPT) 50 U/L (12-78) Alkaline Phosphatase 89 U/L (45-117) Total Protein 6.3 gm/dl (6.4-8.2) Albumin 3.3 gm/dl (3.4-5.0) Lipase 54 U/L (73-393) Total Creatine Kinase 745 U/L (26-192) Creatine Kinase MB 5.4 ng/ml (0.5-3.6) Troponin I 0.428 ng/ml (0-0.045) Bedside Glucose 197 mg/dl (70-90) Creatine Kinase MB Ratio (0-3.0) Test 02/10/17 04:31 02/10/17 06:26 White Blood Count 6.75 K/uL (4.8-10.8) Red Blood Count 2.60 M/uL (4.2-5.4) Hemoglobin 9.0 g/dL (12.0-16.0) Hematocrit 28.9 % (37-47) Mean Corpuscular Volume 111.2 fL (80-100) Mean Corpuscular Hemoglobin 34.6 pg (25-34) Mean Corpuscular Hemoglobin Concent 31.1 g/dl (32-36) Platelet Count 133 K/uL (130-400) Mean Platelet Volume 11.1 fL (7.4-10.4) Neutrophils (%) (Auto) 76.1 % Lymphocytes (%) (Auto) 10.7 % Monocytes (%) (Auto) 12.3 % Eosinophils (%) (Auto) 0.3 % Basophils (%) (Auto) 0.3 % Neutrophils # (Auto) 5.14 K/uL (1.4-6.5) Lymphocytes # (Auto) 0.72 K/uL (1.2-3.4) Monocytes # (Auto) 0.83 K/uL (0.11-0.59) Eosinophils # (Auto) 0.02 K/uL (0-0.5) Basophils # (Auto) 0.02 K/uL (0-0.2) RDW Standard Deviation 68.2 fL (36.4-46.3) RDW Coefficient of Variation 17.0 % (11.5-14.5) Immature Granulocyte % (Auto) 0.3 % Immature Granulocyte # (Auto) 0.02 K/uL (0.00-0.02) Hypersegmented Polys 1+ Macrocytosis PRESENT Prothrombin Time 15.4 SECONDS (9.0-12.0) Prothromb Time International Ratio 1.4 (0.9-1.1) Activated Partial Thromboplast Time 65.3 SECONDS (21.0-31.0) Partial Thromboplastin Ratio 2.5 Sodium Level 134 mmol/L (136-145) Potassium Level 4.3 mmol/L (3.5-5.1) Chloride Level 96 mmol/L (98-107) Carbon Dioxide Level 26 mmol/L (21-32) Anion Gap 12.0 mmol/L (3-11) Blood Urea Nitrogen 47 mg/dl (7-18) Creatinine 8.21 mg/dl (0.60-1.20) Est Creatinine Clear Calc Drug Dose 7.8 ml/min Estimated GFR () 5.2 Estimated GFR (Non- 4.5 BUN/Creatinine Ratio 5.6 (10-20) Random Glucose 248 mg/dl (70-99) Calcium Level 8.2 mg/dl (8.5-10.1) Magnesium Level 2.0 mg/dl (1.8-2.4) Total Bilirubin 1.2 mg/dl (0.2-1) Aspartate Amino Transf (AST/SGOT) 29 U/L (15-37) Alanine Aminotransferase (ALT/SGPT) 40 U/L (12-78) Alkaline Phosphatase 77 U/L (45-117) Total Creatine Kinase 521 U/L (26-192) Creatine Kinase MB 2.4 ng/ml (0.5-3.6) Creatine Kinase MB Ratio 0.5 (0-3.0) Troponin I 0.231 ng/ml (0-0.045) Total Protein 6.5 gm/dl (6.4-8.2) Albumin 3.5 gm/dl (3.4-5.0) Globulin 3.0 gm/dl (2.5-4.0) Albumin/Globulin Ratio 1.2 (0.9-2) Procalcitonin 2.80 ng/ml (0-0.5) Bedside Glucose 273 mg/dl (70-90) Micro Results: Date/Time Source Procedure Growth Status 02/10/17 04:36 Blood Blood Culture Pending Received 02/10/17 04:31 Blood Blood Culture Pending Received 02/08/17 06:00 Nasal MRSA DNA Surveillance Screen - Final Specimen Negative for MRSA by DNA Probe Complete Assessment & Plan Assessment: 71 year old female with PMH DM type 2, Tobacco abuse, Paroxysmal AFib, ESRD on HD, HTN, COPD, CHF Presented on 02/08 with SOB Patient had low grade fevers overnight- Vancomycin started empirically Blood cultures pending Plan: Loading dose: 1500 mg IV X 1 (14.6 mg/kg) Patient had HD yesterday- currently no plans for HD today. Estimate current level of vancomycin ~24 and should remain therapeutic until next HD session. Will get random level in AM to assist with dosing. Pharmacy will continue to follow and will adjust dose/frequency as necessary. Thank you
[2017-02-10] MEDS: LOSARTAN POTASSIUM 50 MG TAB PO SCH (08:36)
[2017-02-10] MEDS: CLOPIDOGREL BISULFATE 75 MG TAB PO SCH (08:36)
[2017-02-10] MEDS: NEPHROCAPS PO SCH (08:36)
[2017-02-10] MEDS: LACTOBACILLUS ACIDOPHILUS (FLORANEX) TAB PO SCH (08:36)
[2017-02-10] MEDS: FLUTICASONE/SALMETEROL 250/50 (ADVAIR) 14 PUFF/1 INHALER INH SCH ×2 (08:37→20:41)
[2017-02-10] MEDS: PANTOprazole INJ 40 MG in SYRINGE 0 ML IV SCH ×2 (08:37→20:41)
[2017-02-10] MEDS: PrednisoLONE ACET 1% OP SUSP 5 ML BTL OPL SCH (08:38)
[2017-02-10] MEDS: METOPROLOL TARTRATE 50 MG TAB PO SCH ×2 (08:38→20:41)
[2017-02-10] MEDS: CLONIDINE HCL 0.1 MG TAB PO SCH ×2 (08:39→20:41)
[2017-02-10] MEDS: LIDODERM (LIDOCAINE) PATCH 5% TD SCH (08:42)
[2017-02-10] MEDS: INSULIN ASPART 100 UNITS/ML 3 ML PEN SC SCH ×4 (08:45→20:41)
[2017-02-10] MEDS: INSULIN GLARGINE SOLOSTAR 100 UNITS/ML 3 ML PEN SC SCH (08:48)
--- NOTE | 2017-02-10 10:28 | Pulmonology Progress Note ---
Pulmonary Progress Note Date of Service Feb 10, 2017. Attending Dr. Ibrahim Subjective Patient feels that her breathing has improved, but she continues to have right sided upper abdominal pain/ back pain. She did have a fever last night up to 38 C. Blood cultures are pending. I did discuss this patient with Dr. Cabrera and Dr. Simpson. Pain is worsened with movement. Sitting still helps pain. Pain radiating to back. Labs reviewed: WBC 6.75 Hgb 9.0 Creatinine 0.231 Procalcitonin 2.80 CK 521 Note elevated glucose this morning up to 273 Medications reviewed: Vancomycin, Plavix, Coumadin, Duoneb Objective VS reviewed: Temp up to 38C last night HR 85 RR 20 BP 115/65 SaO2 94% on 3 L nasal cannula General: Patient is awake, but slightly lethargic. Obese. No acute distress. Head: Normocephalic, Atraumatic. ENT: PERRLA, No discharge, EOMI, Sclera normal Neck: Normal ROM. Trachea midline. No stridor Respiratory: Very slight coarse sounds in lower lungs. Otherwise improved. Mild respiratory distress. Note nasal cannula O2 in place Cardiovascular: Regular rate Extremities: Trace edema of b/l LE. Neuro: Alert. CN II-XII grossly intact. Sensation and motor function grossly intact. Assessment & Plan Chest/abdominal pain uncertain etiology Dyspnea COPD Acute on chronic respiratory failure CHF ESRD on hemodialysis B/L pleural effusions Patient appears to be improved from a pulmonary standpoint. She continues to have pain in the upper abdomen/right chest. She did have a fever last night. Workup pending. Vancomycin started. GI following. Cardiology following. Continue to monitor O2 saturation and keep her saturation above 94% due to decreased pO2 on ABG. Continue BiPAP to help with afterload reduction at this time PRN worsening respiratory symptoms. Bilateral pleural effusion noted on CT scan along with thoracic U/S. Recommend continued follow up of pleural effusions. No plan for thoracentesis at this time unless respiratory status changes acutely or pleural effusions worsen. Overall patient is stable from a pulmonary perspective. Further recommendations as above. Pulmonary will sign off. Please call with changes in respiratory status/questions. Thanks Patient and plan reviewed and agreed upon. Data Medications: Current Inpatient Medications Medications (Trade) Dose Ordered Sig/Joan Route Start Time Stop Time Status Last Admin Dose Admin Acetaminophen (Tylenol Tab) 650 mg Q6 PRN PO 02/08/17 05:15 03/10/17 05:14 02/10/17 06:47 650 MG Albuterol (Ventolin Hfa Inhaler) 2 puffs Q4 PRN INH 02/08/17 05:15 03/10/17 05:14 Amlodipine Besylate (Norvasc Tab) 10 mg QAM PO 02/08/17 09:00 03/10/17 08:59 Future Hold 02/09/17 08:12 10 MG Calcium Acetate (Phoslo Cap) 1,334 mg TIDM PO 02/08/17 07:30 03/10/17 07:59 02/09/17 16:57 1,334 MG Clonidine HCl (Catapres Tab) 0.1 mg BID PO 02/08/17 09:00 03/10/17 08:59 02/10/17 08:39 0.1 MG Salmeterol Xinafoate/ Fluticasone (Advair Diskus 250/50 Inh) 1 puff BID INH 02/08/17 09:00 03/10/17 08:59 02/10/17 08:37 1 PUFF Furosemide (Lasix Tab) 40 mg DAILY PO 02/08/17 09:00 03/10/17 08:59 Future Hold Insulin Glargine (Lantus Solostar Pen) 26 units QAM SC 02/08/17 09:00 03/10/17 08:59 Future Hold 02/08/17 09:50 26 UNITS Lactobacillus Acidophilus (Floranex Tab) 1 tab DAILY PO 02/08/17 09:00 03/10/17 08:59 02/10/17 08:36 1 TAB Losartan Potassium (coZAAR TAB) 100 mg DAILY PO 02/08/17 09:00 03/10/17 08:59 02/10/17 08:36 100 MG Prednisolone Acetate (Pred Forte 1% Oph Susp) 1 drops DAILY OPL 02/08/17 09:00 03/10/17 08:59 02/10/17 08:38 1 DROPS Vitamin B Complex/ Vit C/Folic Acid (Nephrocaps) 1 cap DAILY PO 02/08/17 09:00 03/10/17 08:59 02/10/17 08:36 1 CAP Miscellaneous Information (Order Awaiting Action) 1 ea QS N/A 02/08/17 08:00 03/10/17 07:59 Glucose (Glucose 40% Gel) 15-30 GRAMS 15 GRAMS... UD PRN PO 02/08/17 05:15 03/10/17 05:14 Glucose (Glucose Chew Tab) 4-8 Tablets 4 Tabl... UD PRN PO 02/08/17 05:15 03/10/17 05:14 Dextrose (Dextrose 50% 50ML Syringe) 25-50ML OF 50% DW IV FOR... UD PRN IV 02/08/17 05:15 03/10/17 05:14 02/08/17 20:19 25 ML Glucagon (Glucagon Inj) 1 mg UD PRN SQ 02/08/17 05:15 03/10/17 05:14 Warfarin Sodium (Coumadin Tab) 7.5 mg DAILY@16 PO 02/08/17 16:00 03/10/17 15:59 02/09/17 16:58 7.5 MG Albuterol/ Ipratropium (Duoneb) 3 ml QIDR INH 02/08/17 08:00 03/10/17 07:59 02/10/17 06:54 3 ML Valacyclovir HCl (Valtrex Tab) 1,000 mg DAILY PO 02/08/17 09:00 03/10/17 08:59 02/10/17 08:36 1,000 MG Insulin Aspart (novoLOG ASPART) SLIDING SCALE If C... ACHS SC 02/08/17 07:00 03/10/17 06:59 02/10/17 08:45 5 UNITS Ioversol (Optiray 320) 100 ml UD PRN IV 02/08/17 12:15 02/12/17 12:14 Heparin Sodium (Porcine) 86392 unit/Dextrose 500 ml @ 30 mls/hr [id number] PRN IV 02/08/17 14:30 03/10/17 14:29 02/10/17 03:52 30 MLS/HR Pantoprazole Sodium 40 mg/ Syringe 10 ml @ 5 mls/min DAILY@ IV 02/09/17 09:00 03/11/17 08:59 02/10/17 08:37 5 MLS/MIN Clopidogrel Bisulfate (plAVix TAB) 75 mg QAM PO 02/09/17 09:00 12/15/17 08:59 02/10/17 08:36 75 MG Metoprolol Tartrate (Lopressor Tab) 50 mg BID PO 02/09/17 09:00 03/11/17 08:59 02/10/17 08:38 50 MG Nitroglycerin (Nitroglycerin 2% Oint) 1 inch Q6 EXT 02/09/17 06:00 03/11/17 05:59 02/10/17 05:54 1 INCH Lidocaine (Lidoderm Patch 5%) 1 patch QAM TD 02/10/17 09:00 03/12/17 08:59 02/10/17 08:42 1 PATCH Miscellaneous (Remove Lidoderm Patch) 1 ea DAILY@21 N/A 02/09/17 21:00 03/11/17 20:59 02/09/17 20:27 1 EA Diltiazem HCl 125 mg/Dextrose 125 ml @ 0 mls/hr Q0M PRN IV 02/09/17 16:01 03/11/17 16:00 02/10/17 05:05 10 MLS/HR Vancomycin HCl (Consult) 1 ea UD PRN N/A 02/10/17 05:45 03/12/17 05:44 Insulin Glargine (Lantus Solostar Pen) 13 units QAM SC 02/10/17 09:00 03/12/17 08:59 02/10/17 08:48 13 UNITS Vital Signs: Date Time Temp Pulse Resp B/P (MAP) Pulse Ox O2 Delivery O2 Flow Rate FiO2 02/10/17 08:00 Nasal Cannula 3.0 02/10/17 07:45 37.0 85 20 115/65 (82) 94 Nasal Cannula 3.0 02/10/17 06:54 92 20 93 Nasal Cannula 3.0 02/10/17 04:00 37.6 84 18 113/53 (73) 95 Nasal Cannula 3.0 Humidified Oxygen 02/10/17 04:00 Nasal Cannula 3.0 Humidified Oxygen 02/10/17 00:05 Nasal Cannula 3.0 Humidified Oxygen 02/09/17 23:45 37.6 84 18 113/53 (73) 95 Nasal Cannula 3.0 Humidified Oxygen 02/09/17 20:00 Nasal Cannula 3.0 02/09/17 19:52 38.0 114 16 130/65 (86) 97 Nasal Cannula 3.0 02/09/17 19:16 118 20 96 Nasal Cannula 4.0 02/09/17 18:03 112 18 141/68 (92) 98 Nasal Cannula 4.0 02/09/17 17:55 113 132/66 (88) 02/09/17 16:00 Nasal Cannula 4.0 02/09/17 15:44 37.1 104 138/59 (85) 02/09/17 15:38 36.9 141 20 149/84 (105) 92 Nasal Cannula 4.0 02/09/17 14:36 76 20 92 Nasal Cannula 4.0 02/09/17 14:30 126 128/68 02/09/17 14:15 122 134/46 02/09/17 14:00 121 131/56 02/09/17 13:45 120 108/38 02/09/17 13:30 115 104/39 02/09/17 13:15 117 117/62 02/09/17 13:00 111 127/55 02/09/17 12:45 105 128/48 02/09/17 12:30 115 113/52 02/09/17 12:15 111 124/57 02/09/17 12:00 113 116/50 02/09/17 12:00 Nasal Cannula 3.0 02/09/17 11:52 120 116/52 02/09/17 11:45 37.4 108 104/55 (71) 02/09/17 11:44 37.5 85 19 130/68 (88) 97 Nasal Cannula 5.0 02/09/17 11:16 110 20 96 Nasal Cannula 4.0 Laboratory Results: Last 24 Hours Test 02/09/17 10:27 02/09/17 11:11 02/09/17 14:27 02/09/17 16:05 Total Bilirubin 1.3 mg/dl Direct Bilirubin 0.3 mg/dl Aspartate Amino Transf (AST/SGOT) 40 U/L Alanine Aminotransferase (ALT/SGPT) 50 U/L Alkaline Phosphatase 89 U/L Total Creatine Kinase 937 U/L Creatine Kinase MB 8.7 ng/ml Creatine Kinase MB Ratio 0.9 Troponin I 0.518 ng/ml Total Protein 6.3 gm/dl Albumin 3.3 gm/dl Lipase 54 U/L Bedside Glucose 115 mg/dl 108 mg/dl 109 mg/dl Test 02/09/17 16:28 02/09/17 19:56 02/10/17 03:51 02/10/17 04:31 Total Creatine Kinase 745 U/L 521 U/L Creatine Kinase MB 5.4 ng/ml 2.4 ng/ml Creatine Kinase MB Ratio 0.7 0.5 Troponin I 0.428 ng/ml 0.231 ng/ml Bedside Glucose 197 mg/dl White Blood Count 6.75 K/uL Red Blood Count 2.60 M/uL Hemoglobin 9.0 g/dL Hematocrit 28.9 % Mean Corpuscular Volume 111.2 fL Mean Corpuscular Hemoglobin 34.6 pg Mean Corpuscular Hemoglobin Concent 31.1 g/dl Platelet Count 133 K/uL Mean Platelet Volume 11.1 fL Neutrophils (%) (Auto) 76.1 % Lymphocytes (%) (Auto) 10.7 % Monocytes (%) (Auto) 12.3 % Eosinophils (%) (Auto) 0.3 % Basophils (%) (Auto) 0.3 % Neutrophils # (Auto) 5.14 K/uL Lymphocytes # (Auto) 0.72 K/uL Monocytes # (Auto) 0.83 K/uL Eosinophils # (Auto) 0.02 K/uL Basophils # (Auto) 0.02 K/uL RDW Standard Deviation 68.2 fL RDW Coefficient of Variation 17.0 % Immature Granulocyte % (Auto) 0.3 % Immature Granulocyte # (Auto) 0.02 K/uL Hypersegmented Polys 1+ Macrocytosis PRESENT Prothrombin Time 15.4 SECONDS Prothromb Time International Ratio 1.4 Activated Partial Thromboplast Time 65.3 SECONDS Partial Thromboplastin Ratio 2.5 Sodium Level 134 mmol/L Potassium Level 4.3 mmol/L Chloride Level 96 mmol/L Carbon Dioxide Level 26 mmol/L Anion Gap 12.0 mmol/L Blood Urea Nitrogen 47 mg/dl Creatinine 8.21 mg/dl Est Creatinine Clear Calc Drug Dose 7.8 ml/min Estimated GFR () 5.2 Estimated GFR (Non- 4.5 BUN/Creatinine Ratio 5.6 Random Glucose 248 mg/dl Calcium Level 8.2 mg/dl Magnesium Level 2.0 mg/dl Total Bilirubin 1.2 mg/dl Aspartate Amino Transf (AST/SGOT) 29 U/L Alanine Aminotransferase (ALT/SGPT) 40 U/L Alkaline Phosphatase 77 U/L Total Protein 6.5 gm/dl Albumin 3.5 gm/dl Globulin 3.0 gm/dl Albumin/Globulin Ratio 1.2 Procalcitonin 2.80 ng/ml Test 02/10/17 06:26 Bedside Glucose 273 mg/dl
--- NOTE | 2017-02-10 11:32 | Progress Note ---
Medicine Progress Note Date & Time of Visit: Feb 10, 2017 at 09:55. Subjective Recent admission for SOB through 04/29 to a bronchitis-admitted 02/01-02/06. She was treated with steroids and supportive care. She went home and returned 1-2 days after discharge as she woke up persistently short of breath and requiring BIPAP. She was thought to have a CHF exacerbation and was given nitro paste with improvement in her breathing. As she was on HD, diuretics were not thought to be helpful and Nephro was consulted to assist with inpatient dialysis. PE was ruled out and patient was evaluated by Cardiology for some chest pain under her right breast. This was reproducible and thought musculoskeletal in etiology. Pulmonary was consulted regarding her worsening hypoxia; they noted bilateral pleural effusions on CT scan that should be followed as outpatient, but recommended against thoracentesis at this time. She continued to improve from a pulmonary standpoint and is currently breathing at baseline, but has significant lower back pain with a new fever. She reports the back pain is constant, dull and is not associated with radiation down her legs. She denies any weakness of her legs, inability to move them and no numbness or tingling or any issues with bowel or bladder movement. She reports no history of cancer. She states that her back pain does not allow her to lay down or stand easily. There is point tenderness along her paraspinal L spine musculature, SI joints and in the piriformis muscles L>R. This pain is acute within the last week. She denies any issues with back pain in the past and denies instrumentation such as spinal injections. She otherwise reports persistent, unchanged RUQ abdominal pain that is constant and not associated with any triggers that she can identify. She is tolerating PO at this time, denies chest pain and is otherwise asymptomatic. Objective Last 8 Hrs Date Time Temp Pulse Resp B/P (MAP) Pulse Ox O2 Delivery O2 Flow Rate FiO2 02/10/17 08:00 Nasal Cannula 3.0 02/10/17 07:45 37.0 85 20 115/65 (82) 94 Nasal Cannula 3.0 02/10/17 06:54 92 20 93 Nasal Cannula 3.0 02/10/17 04:00 37.6 84 18 113/53 (73) 95 Nasal Cannula 3.0 Humidified Oxygen 02/10/17 04:00 Nasal Cannula 3.0 Humidified Oxygen Physical Exam: GEN: obese, sitting in chair, appears sleepy but easily awakens and converses appropriately. She appears deconditioned and has pain with minimal movement in her back. As she transfers to the bed from chair with assist, she has difficulty raising her legs into bed. HEENT: NC/AT, normal sclerae, MMM CARDIO: reg rate, S1/2 heard without m/g/r LUNGS: CTA bilaterally, no crackles, rales or wheezes, good diaphragmatic excursion ABD: soft, RUQ TTP, non-distended, +BS BACK: no spinous process TTP, TTP along lower lumbar paraspinal musculature. TTP along SI joints/PSIS's and piriformis/gluteal muscles bilaterally, but worse on the L side. EXTREMITY: RP and DP palpable 2+ bilat, no LE swelling or edema, extremities are warm and well-perfused NEURO: CN 2-12 grossly intact, sensation intact throughout, 2/4 knee reflex on L , R knee and both achilles reflexes could not be elicited. MUSC: 5/5 strength throughout, no focal deficits, generalized weakness noted. SKIN: warm and dry Laboratory Results: 02/10/17 04:31 Red Blood Count 2.60, Mean Corpuscular Volume 111.2, Mean Corpuscular Hemoglobin 34.6, Mean Corpuscular Hemoglobin Concent 31.1, Mean Platelet Volume 11.1, Neutrophils (%) (Auto) 76.1, Lymphocytes (%) (Auto) 10.7, Monocytes (%) ( Auto) 12.3, Eosinophils (%) (Auto) 0.3, Basophils (%) (Auto) 0.3, Neutrophils # (Auto) 5.14, Lymphocytes # (Auto) 0.72, Monocytes # (Auto) 0.83, Eosinophils # ( Auto) 0.02, Basophils # (Auto) 0.02 02/10/17 04:31 Test 02/08/17 02:12 02/08/17 02:19 02/08/17 02:21 02/08/17 06:50 Polychromasia 1+ Ovalocytes 1+ Bedside Lactic Acid Venous 0.93 mmol/L (0.90-1.70) Bedside Troponin I < 0.030 ng/ml (0-0.045) Pro-B-Type Natriuretic Peptide 88615 pg/ml (0-900) Test 02/08/17 11:50 02/09/17 04:18 02/09/17 10:27 02/10/17 04:31 Blood Gas Sample Site R Radial Bedside Blood Gas pH (LAB) 7.48 (7.35-7.45) Bedside Blood Gas pCO2 (LAB) 34 mmHg (35-46) Bedside Blood Gas pO2 (LAB) 56 mmHg (80-95) Bedside Blood Gas HCO3 (LAB) 25 meq/L (19-24) Bedside Blood Gas Total CO2 26 mEq/l (24-31) Bedside Blood Gas Base Excess (LAB) 1.0 meq/L (-9-1.8) Bedside Blood Gas O2 Saturation 91.0 % (90-95) Dar Test Pass Oxygen Delivery Device Cannula Triglycerides Level 89 mg/dl (0-150) Cholesterol Level 87 mg/dl (0-200) HDL Cholesterol 36 mg/dl LDL Cholesterol, Calculated 33 mg/dl VLDL Cholesterol, Calculated 18 mg/dl Cholesterol/HDL Ratio 2.4 Direct Bilirubin 0.3 mg/dl (0-0.2) Lipase 54 U/L (73-393) White Blood Count 6.75 K/uL (4.8-10.8) Red Blood Count 2.60 M/uL (4.2-5.4) Hemoglobin 9.0 g/dL (12.0-16.0) Hematocrit 28.9 % (37-47) Mean Corpuscular Volume 111.2 fL (80-100) Mean Corpuscular Hemoglobin 34.6 pg (25-34) Mean Corpuscular Hemoglobin Concent 31.1 g/dl (32-36) Platelet Count 133 K/uL (130-400) Mean Platelet Volume 11.1 fL (7.4-10.4) Neutrophils (%) (Auto) 76.1 % Lymphocytes (%) (Auto) 10.7 % Monocytes (%) (Auto) 12.3 % Eosinophils (%) (Auto) 0.3 % Basophils (%) (Auto) 0.3 % Neutrophils # (Auto) 5.14 K/uL (1.4-6.5) Lymphocytes # (Auto) 0.72 K/uL (1.2-3.4) Monocytes # (Auto) 0.83 K/uL (0.11-0.59) Eosinophils # (Auto) 0.02 K/uL (0-0.5) Basophils # (Auto) 0.02 K/uL (0-0.2) RDW Standard Deviation 68.2 fL (36.4-46.3) RDW Coefficient of Variation 17.0 % (11.5-14.5) Immature Granulocyte % (Auto) 0.3 % Immature Granulocyte # (Auto) 0.02 K/uL (0.00-0.02) Hypersegmented Polys 1+ Macrocytosis PRESENT Prothrombin Time 15.4 SECONDS (9.0-12.0) Prothromb Time International Ratio 1.4 (0.9-1.1) Activated Partial Thromboplast Time 65.3 SECONDS (21.0-31.0) Partial Thromboplastin Ratio 2.5 Anion Gap 12.0 mmol/L (3-11) Est Creatinine Clear Calc Drug Dose 7.8 ml/min Estimated GFR () 5.2 Estimated GFR (Non- 4.5 BUN/Creatinine Ratio 5.6 (10-20) Calcium Level 8.2 mg/dl (8.5-10.1) Magnesium Level 2.0 mg/dl (1.8-2.4) Total Bilirubin 1.2 mg/dl (0.2-1) Aspartate Amino Transf (AST/SGOT) 29 U/L (15-37) Alanine Aminotransferase (ALT/SGPT) 40 U/L (12-78) Alkaline Phosphatase 77 U/L (45-117) Total Creatine Kinase 521 U/L (26-192) Creatine Kinase MB 2.4 ng/ml (0.5-3.6) Creatine Kinase MB Ratio 0.5 (0-3.0) Troponin I 0.231 ng/ml (0-0.045) Total Protein 6.5 gm/dl (6.4-8.2) Albumin 3.5 gm/dl (3.4-5.0) Globulin 3.0 gm/dl (2.5-4.0) Albumin/Globulin Ratio 1.2 (0.9-2) Procalcitonin 2.80 ng/ml (0-0.5) Test 02/10/17 06:26 Bedside Glucose 273 mg/dl (70-90) Date/Time Source Procedure Growth Status 02/10/17 04:36 Blood Blood Culture Pending Received 02/08/17 06:00 Nasal MRSA DNA Surveillance Screen - Final Specimen Negative for MRSA by DNA Probe Complete Last 24 Hours Test 02/09/17 10:27 02/09/17 11:11 02/09/17 14:27 02/09/17 16:05 Total Bilirubin 1.3 mg/dl Direct Bilirubin 0.3 mg/dl Aspartate Amino Transf (AST/SGOT) 40 U/L Alanine Aminotransferase (ALT/SGPT) 50 U/L Alkaline Phosphatase 89 U/L Total Creatine Kinase 937 U/L Creatine Kinase MB 8.7 ng/ml Creatine Kinase MB Ratio 0.9 Troponin I 0.518 ng/ml Total Protein 6.3 gm/dl Albumin 3.3 gm/dl Lipase 54 U/L Bedside Glucose 115 mg/dl 108 mg/dl 109 mg/dl Test 02/09/17 16:28 02/09/17 19:56 02/10/17 03:51 02/10/17 04:31 Total Creatine Kinase 745 U/L 521 U/L Creatine Kinase MB 5.4 ng/ml 2.4 ng/ml Creatine Kinase MB Ratio 0.7 0.5 Troponin I 0.428 ng/ml 0.231 ng/ml Bedside Glucose 197 mg/dl White Blood Count 6.75 K/uL Red Blood Count 2.60 M/uL Hemoglobin 9.0 g/dL Hematocrit 28.9 % Mean Corpuscular Volume 111.2 fL Mean Corpuscular Hemoglobin 34.6 pg Mean Corpuscular Hemoglobin Concent 31.1 g/dl Platelet Count 133 K/uL Mean Platelet Volume 11.1 fL Neutrophils (%) (Auto) 76.1 % Lymphocytes (%) (Auto) 10.7 % Monocytes (%) (Auto) 12.3 % Eosinophils (%) (Auto) 0.3 % Basophils (%) (Auto) 0.3 % Neutrophils # (Auto) 5.14 K/uL Lymphocytes # (Auto) 0.72 K/uL Monocytes # (Auto) 0.83 K/uL Eosinophils # (Auto) 0.02 K/uL Basophils # (Auto) 0.02 K/uL RDW Standard Deviation 68.2 fL RDW Coefficient of Variation 17.0 % Immature Granulocyte % (Auto) 0.3 % Immature Granulocyte # (Auto) 0.02 K/uL Hypersegmented Polys 1+ Macrocytosis PRESENT Prothrombin Time 15.4 SECONDS Prothromb Time International Ratio 1.4 Activated Partial Thromboplast Time 65.3 SECONDS Partial Thromboplastin Ratio 2.5 Sodium Level 134 mmol/L Potassium Level 4.3 mmol/L Chloride Level 96 mmol/L Carbon Dioxide Level 26 mmol/L Anion Gap 12.0 mmol/L Blood Urea Nitrogen 47 mg/dl Creatinine 8.21 mg/dl Est Creatinine Clear Calc Drug Dose 7.8 ml/min Estimated GFR () 5.2 Estimated GFR (Non- 4.5 BUN/Creatinine Ratio 5.6 Random Glucose 248 mg/dl Calcium Level 8.2 mg/dl Magnesium Level 2.0 mg/dl Total Bilirubin 1.2 mg/dl Aspartate Amino Transf (AST/SGOT) 29 U/L Alanine Aminotransferase (ALT/SGPT) 40 U/L Alkaline Phosphatase 77 U/L Total Protein 6.5 gm/dl Albumin 3.5 gm/dl Globulin 3.0 gm/dl Albumin/Globulin Ratio 1.2 Procalcitonin 2.80 ng/ml Test 02/10/17 06:26 Bedside Glucose 273 mg/dl Date/Time Source Procedure Growth Status 02/10/17 04:36 Blood Blood Culture Pending Received 02/10/17 04:31 Blood Blood Culture Pending Received Assessment & Plan 71 yo F presented with SOB and subsequently developed fever with lower back pain and persistent RUQ pain. 1. RUQ pain-etiologies considered and ruled out include PE, aortic dissection and acute MD. There was no rib pathology in this area on CT scan. Lipase was normal on admission, she is tolerating PO and pain is not epigastric. A CTA was performed revealing multiple areas of mesenteric stenosis and renal artery stenosis. Vascular was consulted but did not feel this was contributing to her current pain and opted against any surgical intervention at this time. GI was consulted and agrees the pain is idiopathic at this point, and has her on supportive care with PPI. For now, with back pain and fever, will obtain an L- spine MRI without contrast to rule out source of infection in her back that may be related to some referred pain in her abdomen. Will continue to monitor clinical progress and consider other possibilities. 2. Acute lower back pain-began during this hospitalization, reproducible over the musculature and although no overt neurologic deficits, she cannot lie flat or move very well. Will obtain an MRI without contrast. 3. Acute on chronic diastolic heart failure-compensated at this point with breathing at baseline on 2.5L O2 via NC. Cont fluid management with HD as needed for persistent bilateral pleural effusions. Cont medical management. Per pulmonary follow effusions as outpatient. 4. Chronic hypoxic respiratory failure 2/2 COPD-no wheezing on exam, appears stable. Cont Advair and Duonebs in addition to home oxygen supplementation. Encourage to quit smoking. 5. Elevated troponin 6. Atrial fibrillation with RVR-diltiazem drip, metoprolol, heparin drip, warfarin. 7. ESRD-cont HD, appreciate Nephro input. 8. HTN-controlled, cont metoprolol, amlodipine, losartan and clonidine. 9. DMII-controlled at home. Recently hypoglycemic so Lantus was held yesterday. Pt is eating somewhat, restarted Lantus at 50%. 10. Anemia-stable related to chronic disease. VTE PROPHYLAXIS SCD's. IV heparin / titrate warfarin. DISPOSITION-uncertain at this time DO [facility] Hospital[facility] Consultants: Nephrology Cardiology Pulmonary GI . Current Inpatient Medications: Current Inpatient Medications Medications (Trade) Dose Ordered Sig/Joan Route Start Time Stop Time Status Last Admin Dose Admin Acetaminophen (Tylenol Tab) 650 mg Q6 PRN PO 02/08/17 05:15 03/10/17 05:14 02/10/17 06:47 650 MG Albuterol (Ventolin Hfa Inhaler) 2 puffs Q4 PRN INH 02/08/17 05:15 03/10/17 05:14 Amlodipine Besylate (Norvasc Tab) 10 mg QAM PO 02/08/17 09:00 03/10/17 08:59 Future Hold 02/09/17 08:12 10 MG Calcium Acetate (Phoslo Cap) 1,334 mg TIDM PO 02/08/17 07:30 03/10/17 07:59 02/09/17 16:57 1,334 MG Clonidine HCl (Catapres Tab) 0.1 mg BID PO 02/08/17 09:00 03/10/17 08:59 02/10/17 08:39 0.1 MG Salmeterol Xinafoate/ Fluticasone (Advair Diskus 250/50 Inh) 1 puff BID INH 02/08/17 09:00 03/10/17 08:59 02/10/17 08:37 1 PUFF Furosemide (Lasix Tab) 40 mg DAILY PO 02/08/17 09:00 03/10/17 08:59 Future Hold Insulin Glargine (Lantus Solostar Pen) 26 units QAM SC 02/08/17 09:00 03/10/17 08:59 Future Hold 02/08/17 09:50 26 UNITS Lactobacillus Acidophilus (Floranex Tab) 1 tab DAILY PO 02/08/17 09:00 03/10/17 08:59 02/10/17 08:36 1 TAB Losartan Potassium (coZAAR TAB) 100 mg DAILY PO 02/08/17 09:00 03/10/17 08:59 02/10/17 08:36 100 MG Prednisolone Acetate (Pred Forte 1% Oph Susp) 1 drops DAILY OPL 02/08/17 09:00 03/10/17 08:59 02/10/17 08:38 1 DROPS Vitamin B Complex/ Vit C/Folic Acid (Nephrocaps) 1 cap DAILY PO 02/08/17 09:00 03/10/17 08:59 02/10/17 08:36 1 CAP Miscellaneous Information (Order Awaiting Action) 1 ea QS N/A 02/08/17 08:00 03/10/17 07:59 Glucose (Glucose 40% Gel) 15-30 GRAMS 15 GRAMS... UD PRN PO 02/08/17 05:15 03/10/17 05:14 Glucose (Glucose Chew Tab) 4-8 Tablets 4 Tabl... UD PRN PO 02/08/17 05:15 03/10/17 05:14 Dextrose (Dextrose 50% 50ML Syringe) 25-50ML OF 50% DW IV FOR... UD PRN IV 02/08/17 05:15 03/10/17 05:14 02/08/17 20:19 25 ML Glucagon (Glucagon Inj) 1 mg UD PRN SQ 02/08/17 05:15 03/10/17 05:14 Warfarin Sodium (Coumadin Tab) 7.5 mg DAILY@16 PO 02/08/17 16:00 03/10/17 15:59 02/09/17 16:58 7.5 MG Albuterol/ Ipratropium (Duoneb) 3 ml QIDR INH 02/08/17 08:00 03/10/17 07:59 02/10/17 06:54 3 ML Valacyclovir HCl (Valtrex Tab) 1,000 mg DAILY PO 02/08/17 09:00 03/10/17 08:59 02/10/17 08:36 1,000 MG Insulin Aspart (novoLOG ASPART) SLIDING SCALE If C... ACHS SC 02/08/17 07:00 03/10/17 06:59 02/10/17 08:45 5 UNITS Ioversol (Optiray 320) 100 ml UD PRN IV 02/08/17 12:15 02/12/17 12:14 Heparin Sodium (Porcine) 23337 unit/Dextrose 500 ml @ 30 mls/hr [id number] PRN IV 02/08/17 14:30 03/10/17 14:29 02/10/17 03:52 30 MLS/HR Pantoprazole Sodium 40 mg/ Syringe 10 ml @ 5 mls/min DAILY@ IV 02/09/17 09:00 03/11/17 08:59 02/10/17 08:37 5 MLS/MIN Clopidogrel Bisulfate (plAVix TAB) 75 mg QAM PO 02/09/17 09:00 03/11/17 08:59 02/10/17 08:36 75 MG Metoprolol Tartrate (Lopressor Tab) 50 mg BID PO 02/09/17 09:00 03/11/17 08:59 02/10/17 08:38 50 MG Nitroglycerin (Nitroglycerin 2% Oint) 1 inch Q6 EXT 02/09/17 06:00 03/11/17 05:59 02/10/17 05:54 1 INCH Lidocaine (Lidoderm Patch 5%) 1 patch QAM TD 02/10/17 09:00 03/12/17 08:59 02/10/17 08:42 1 PATCH Miscellaneous (Remove Lidoderm Patch) 1 ea DAILY@21 N/A 02/09/17 21:00 03/11/17 20:59 02/09/17 20:27 1 EA Diltiazem HCl 125 mg/Dextrose 125 ml @ 0 mls/hr Q0M PRN IV 02/09/17 16:01 03/11/17 16:00 02/10/17 05:05 10 MLS/HR Vancomycin HCl (Consult) 1 ea UD PRN N/A 02/10/17 05:45 03/12/17 05:44 Insulin Glargine (Lantus Solostar Pen) 13 units QAM SC 02/10/17 09:00 03/12/17 08:59 02/10/17 08:48 13 UNITS
--- NOTE | 2017-02-10 11:48 | Gastroenterology Progress Note ---
Progress Note Date of Service: Feb 10, 2017 Subjective Pt evaluation today including: conversation w/ patient, physical exam, chart review, lab review, review of studies, review of inpatient medication list 71 year old female admitted with COPD exacerbation. We are seeing her for RUQ abdominal pain. CT a/p yesterday: 1. Mild fat stranding at the undersurface of the right hepatic lobe near the gallbladder fossa. This does not appear to be associated with the duodenum at this time. There are few adjacent colonic diverticula which do not appear inflamed. This is nonspecific. Recommend correlation with LFTs to exclude a hepatitis. 2. No definite bowel wall thickening or obstruction. 3. Small bilateral pleural effusions and bilateral lower lobe densities persist. This may represent atelectasis or pneumonia. 4. Additional stable findings as described above. Patient continues with constant non-radiating RUQ abdominal pain. She doesn't feel like eating, but did eat half of a piece of toast this morning. This did not increase her pain. She denies any associated n/v or heartburn. LFTs have all but normalized today. Tbili is 1.2. She denies any n/v or heartburn. Review of Systems Constitutional: No fever, No chills Eyes: No worsening of vision, No eye pain ENT: No hearing loss Respiratory: No cough, No wheezing, No shortness of breath Cardiac: No chest pain Abdomen: + see HPI Musculoskeletal: + muscle pain (pain in buttocks), No joint pain Female : No dysuria, No urinary frequency Neuro: No problem reported Psych: No problem reported Heme: No abnormal bleeding/bruising Endo: No problem reported Skin: No rash, No itch Medications Current Inpatient Medications Medications (Trade) Dose Ordered Sig/Joan Route Start Time Stop Time Status Last Admin Dose Admin Acetaminophen (Tylenol Tab) 650 mg Q6 PRN PO 02/08/17 05:15 03/10/17 05:14 02/10/17 06:47 650 MG Albuterol (Ventolin Hfa Inhaler) 2 puffs Q4 PRN INH 02/08/17 05:15 03/10/17 05:14 Amlodipine Besylate (Norvasc Tab) 10 mg QAM PO 02/08/17 09:00 03/10/17 08:59 Future Hold 02/09/17 08:12 10 MG Calcium Acetate (Phoslo Cap) 1,334 mg TIDM PO 02/08/17 07:30 03/10/17 07:59 02/09/17 16:57 1,334 MG Clonidine HCl (Catapres Tab) 0.1 mg BID PO 02/08/17 09:00 03/10/17 08:59 02/10/17 08:39 0.1 MG Salmeterol Xinafoate/ Fluticasone (Advair Diskus 250/50 Inh) 1 puff BID INH 02/08/17 09:00 03/10/17 08:59 02/10/17 08:37 1 PUFF Furosemide (Lasix Tab) 40 mg DAILY PO 02/08/17 09:00 03/10/17 08:59 Future Hold Insulin Glargine (Lantus Solostar Pen) 26 units QAM SC 02/08/17 09:00 03/10/17 08:59 Future Hold 02/08/17 09:50 26 UNITS Lactobacillus Acidophilus (Floranex Tab) 1 tab DAILY PO 02/08/17 09:00 03/10/17 08:59 02/10/17 08:36 1 TAB Losartan Potassium (coZAAR TAB) 100 mg DAILY PO 02/08/17 09:00 03/10/17 08:59 02/10/17 08:36 100 MG Prednisolone Acetate (Pred Forte 1% Oph Susp) 1 drops DAILY OPL 02/08/17 09:00 03/10/17 08:59 02/10/17 08:38 1 DROPS Vitamin B Complex/ Vit C/Folic Acid (Nephrocaps) 1 cap DAILY PO 02/08/17 09:00 03/10/17 08:59 02/10/17 08:36 1 CAP Miscellaneous Information (Order Awaiting Action) 1 ea QS N/A 02/08/17 08:00 03/10/17 07:59 Glucose (Glucose 40% Gel) 15-30 GRAMS 15 GRAMS... UD PRN PO 02/08/17 05:15 03/10/17 05:14 Glucose (Glucose Chew Tab) 4-8 Tablets 4 Tabl... UD PRN PO 02/08/17 05:15 03/10/17 05:14 Dextrose (Dextrose 50% 50ML Syringe) 25-50ML OF 50% DW IV FOR... UD PRN IV 02/08/17 05:15 03/10/17 05:14 02/08/17 20:19 25 ML Glucagon (Glucagon Inj) 1 mg UD PRN SQ 02/08/17 05:15 03/10/17 05:14 Warfarin Sodium (Coumadin Tab) 7.5 mg DAILY@16 PO 02/08/17 16:00 03/10/17 15:59 02/09/17 16:58 7.5 MG Albuterol/ Ipratropium (Duoneb) 3 ml QIDR INH 02/08/17 08:00 03/10/17 07:59 02/10/17 06:54 3 ML Valacyclovir HCl (Valtrex Tab) 1,000 mg DAILY PO 02/08/17 09:00 03/10/17 08:59 02/10/17 08:36 1,000 MG Insulin Aspart (novoLOG ASPART) SLIDING SCALE If C... ACHS SC 02/08/17 07:00 03/10/17 06:59 02/10/17 08:45 5 UNITS Ioversol (Optiray 320) 100 ml UD PRN IV 02/08/17 12:15 02/12/17 12:14 Heparin Sodium (Porcine) 29271 unit/Dextrose 500 ml @ 30 mls/hr [id number] PRN IV 02/08/17 14:30 03/10/17 14:29 02/10/17 03:52 30 MLS/HR Pantoprazole Sodium 40 mg/ Syringe 10 ml @ 5 mls/min DAILY@ IV 02/09/17 09:00 03/11/17 08:59 02/10/17 08:37 5 MLS/MIN Clopidogrel Bisulfate (plAVix TAB) 75 mg QAM PO 02/09/17 09:00 03/11/17 08:59 02/10/17 08:36 75 MG Metoprolol Tartrate (Lopressor Tab) 50 mg BID PO 02/09/17 09:00 03/11/17 08:59 02/10/17 08:38 50 MG Nitroglycerin (Nitroglycerin 2% Oint) 1 inch Q6 EXT 02/09/17 06:00 03/11/17 05:59 02/10/17 05:54 1 INCH Lidocaine (Lidoderm Patch 5%) 1 patch QAM TD 02/10/17 09:00 03/12/17 08:59 02/10/17 08:42 1 PATCH Miscellaneous (Remove Lidoderm Patch) 1 ea DAILY@21 N/A 02/09/17 21:00 03/11/17 20:59 02/09/17 20:27 1 EA Diltiazem HCl 125 mg/Dextrose 125 ml @ 0 mls/hr Q0M PRN IV 02/09/17 16:01 03/11/17 16:00 02/10/17 05:05 10 MLS/HR Vancomycin HCl (Consult) 1 ea UD PRN N/A 02/10/17 05:45 03/12/17 05:44 Insulin Glargine (Lantus Solostar Pen) 13 units QAM SC 02/10/17 09:00 03/12/17 08:59 02/10/17 08:48 13 UNITS Objective Vital Signs Date Time Temp Pulse Resp B/P (MAP) Pulse Ox O2 Delivery O2 Flow Rate FiO2 02/10/17 10:50 36.8 65 20 99/63 (75) 95 Nasal Cannula 3.0 02/10/17 08:00 Nasal Cannula 3.0 02/10/17 07:45 37.0 85 20 115/65 (82) 94 Nasal Cannula 3.0 02/10/17 06:54 92 20 93 Nasal Cannula 3.0 02/10/17 04:00 37.6 84 18 113/53 (73) 95 Nasal Cannula 3.0 Humidified Oxygen 02/10/17 04:00 Nasal Cannula 3.0 Humidified Oxygen 02/10/17 00:05 Nasal Cannula 3.0 Humidified Oxygen 02/09/17 23:45 37.6 84 18 113/53 (73) 95 Nasal Cannula 3.0 Humidified Oxygen 02/09/17 20:00 Nasal Cannula 3.0 02/09/17 19:52 38.0 114 16 130/65 (86) 97 Nasal Cannula 3.0 02/09/17 19:16 118 20 96 Nasal Cannula 4.0 02/09/17 18:03 112 18 141/68 (92) 98 Nasal Cannula 4.0 02/09/17 17:55 113 132/66 (88) 02/09/17 16:00 Nasal Cannula 4.0 02/09/17 15:44 37.1 104 138/59 (85) 02/09/17 15:38 36.9 141 20 149/84 (105) 92 Nasal Cannula 4.0 02/09/17 14:36 76 20 92 Nasal Cannula 4.0 02/09/17 14:30 126 128/68 02/09/17 14:15 122 134/46 02/09/17 14:00 121 131/56 02/09/17 13:45 120 108/38 02/09/17 13:30 115 104/39 02/09/17 13:15 117 117/62 02/09/17 13:00 111 127/55 02/09/17 12:45 105 128/48 02/09/17 12:30 115 113/52 02/09/17 12:15 111 124/57 02/09/17 12:00 113 116/50 02/09/17 12:00 Nasal Cannula 3.0 02/09/17 11:52 120 116/52 02/09/17 11:45 37.4 108 104/55 (71) 02/09/17 11:44 37.5 85 19 130/68 (88) 97 Nasal Cannula 5.0 Physical Exam General Appearance: no apparent distress, + obese Eyes: normal inspection ENT: hearing grossly normal Neck: supple Respiratory/Chest: lungs clear, normal breath sounds, no respiratory distress, no accessory muscle use Cardiovascular: regular rate, rhythm, no edema Abdomen: normal bowel sounds, soft, + tenderness (RUQ) Extremities: no pedal edema Neurologic/Psych: alert Skin: normal color, no jaundice, warm/dry Laboratory Results Last 24 Hours Test 02/09/17 14:27 02/09/17 16:05 02/09/17 16:28 02/09/17 19:56 Bedside Glucose 108 mg/dl 109 mg/dl 197 mg/dl Total Creatine Kinase 745 U/L Creatine Kinase MB 5.4 ng/ml Creatine Kinase MB Ratio 0.7 Troponin I 0.428 ng/ml Test 02/10/17 03:51 02/10/17 04:31 02/10/17 06:26 Creatine Kinase MB Ratio 0.5 White Blood Count 6.75 K/uL Red Blood Count 2.60 M/uL Hemoglobin 9.0 g/dL Hematocrit 28.9 % Mean Corpuscular Volume 111.2 fL Mean Corpuscular Hemoglobin 34.6 pg Mean Corpuscular Hemoglobin Concent 31.1 g/dl Platelet Count 133 K/uL Mean Platelet Volume 11.1 fL Neutrophils (%) (Auto) 76.1 % Lymphocytes (%) (Auto) 10.7 % Monocytes (%) (Auto) 12.3 % Eosinophils (%) (Auto) 0.3 % Basophils (%) (Auto) 0.3 % Neutrophils # (Auto) 5.14 K/uL Lymphocytes # (Auto) 0.72 K/uL Monocytes # (Auto) 0.83 K/uL Eosinophils # (Auto) 0.02 K/uL Basophils # (Auto) 0.02 K/uL RDW Standard Deviation 68.2 fL RDW Coefficient of Variation 17.0 % Immature Granulocyte % (Auto) 0.3 % Immature Granulocyte # (Auto) 0.02 K/uL Hypersegmented Polys 1+ Macrocytosis PRESENT Prothrombin Time 15.4 SECONDS Prothromb Time International Ratio 1.4 Activated Partial Thromboplast Time 65.3 SECONDS Partial Thromboplastin Ratio 2.5 Sodium Level 134 mmol/L Potassium Level 4.3 mmol/L Chloride Level 96 mmol/L Carbon Dioxide Level 26 mmol/L Anion Gap 12.0 mmol/L Blood Urea Nitrogen 47 mg/dl Creatinine 8.21 mg/dl Est Creatinine Clear Calc Drug Dose 7.8 ml/min Estimated GFR () 5.2 Estimated GFR (Non- 4.5 BUN/Creatinine Ratio 5.6 Random Glucose 248 mg/dl Calcium Level 8.2 mg/dl Magnesium Level 2.0 mg/dl Total Bilirubin 1.2 mg/dl Aspartate Amino Transf (AST/SGOT) 29 U/L Alanine Aminotransferase (ALT/SGPT) 40 U/L Alkaline Phosphatase 77 U/L Total Creatine Kinase 521 U/L Creatine Kinase MB 2.4 ng/ml Troponin I 0.231 ng/ml Total Protein 6.5 gm/dl Albumin 3.5 gm/dl Globulin 3.0 gm/dl Albumin/Globulin Ratio 1.2 Procalcitonin 2.80 ng/ml Bedside Glucose 273 mg/dl Assessment and Plan 71 year old female with RUQ pain of unclear origin. Initial mild LFT elevation which has all but normalized. Will try Bentyl 20mg TID with meals. Will continue to follow. I performed a history and physical examination of the patient. I have discussed the patient's case, impression and plan with Essence Evans PA-C. Her note reflects my findings and plan. Most c/w musculoskeletal or possible related to spinal disease. Adriel Olson MD
[2017-02-10] MEDS ORDERED: OXYCODONE HCL IR 5 MG TAB (IMMEDIATE RELEASE) PO PRN (12:00)
--- NOTE | 2017-02-10 12:26 | DIAGNOSTIC IMAGING REPORT ---
MRI LUMBAR SPINE W/O CONTRAST CLINICAL HISTORY: Progressive low back pain. Fever. TECHNIQUE: Sagittal and axial T1, T2 and STIR images were obtained. COMPARISON STUDY: CT scan dated 02/09/2017 OBSERVATIONS: The vertebral bodies and posterior elements appear intact. There is no abnormal bony signal present to suggest a marrow replacement process. L1-2: No disc protrusions or extrusions. No evidence of spinal canal or neural foraminal compromise. L2-3: There is a circumferential disc bulge and small broad-based central disc protrusion. There is moderate spinal stenosis. There is no significant foraminal narrowing. L3-4: There is a circumferential disc bulge. There is facet joint arthropathy. There is moderate spinal stenosis. There is minimal bilateral foraminal narrowing. L4-5: There is a mild circumferential disc bulge. There is facet joint arthropathy. There is no significant spinal or foraminal stenosis L5-S1: There is partial sacralization of the L5 vertebra. There is no evidence of disc bulge or focal herniation. There is no evidence of spinal or foraminal stenosis. No paraspinal masses are visualized on this noncontrast study. The conus medullaris and cauda equina appear normal. IMPRESSION: Multilevel spondylitic changes as described above. This results in moderate spinal stenosis at the L2-3 and L3-4 levels. Electronically signed by: Deepak Terry M.D. 02/10/2017 12:24 PM Dictated Date/Time: 02/10/2017 12:19 PM
[2017-02-10] MEDS: DICYCLOMINE HCL 20 MG TAB PO SCH ×2 (12:37→16:01)
--- NOTE | 2017-02-10 13:30 | Cardiology Follow-Up ---
Subjective Subjective Date of Service: Feb 10, 2017. Pt evaluation today including: conversation w/ patient, physical exam, chart review, lab review, review of studies, review of inpatient medication list Additional Details: Pt seen and examined, oob in chair. States that right sided chest pain has resolved, now with low back pain which is not new. SOB improving. Denies palpitations, lightheadedness or dizziness. Tele reviewed: rates improved with cardizem gtt overnight, now off gtt and sinus with frequent PAC's. Problem List Medical Problems: (1) Anemia Status: Acute (2) Chest pain Status: Acute (3) CHF (congestive heart failure) Status: Acute (4) CHF (congestive heart failure) Status: Acute (5) Chronic obstructive pulmonary disease Status: Acute (6) COPD (chronic obstructive pulmonary disease) Status: Acute (7) COPD exacerbation Status: Acute (8) End stage renal disease Status: Acute (9) End stage renal disease on dialysis Status: Acute (10) GI bleed Status: Acute (11) GI bleed Status: Acute (12) Hemoptysis Status: Acute (13) Hypoxemia Status: Acute (14) Hypoxia Status: Acute (15) Left lower lobe pneumonia Status: Acute (16) PNA (pneumonia) Status: Acute (17) Pneumonia Status: Acute (18) Pulmonary congestion Status: Acute (19) Rapid atrial fibrillation Status: Acute (20) Respiratory failure Status: Acute (21) Shortness of breath Status: Acute (22) Supratherapeutic INR Status: Acute Review of Systems Constitutional: No fever, No chills Eyes: No worsening of vision, No eye pain Respiratory: No cough, No wheezing, No shortness of breath Cardiac: No chest pain Musculoskeletal: + muscle pain (pain in buttocks), No joint pain Female : No dysuria, No urinary frequency Neurologic: No problem reported Psychiatric: No problem reported Heme: No abnormal bleeding/bruising Endo: No problem reported Objective Vital Signs Last Vital Signs Documentation Date Time Temp Pulse Resp B/P (MAP) Pulse Ox O2 Delivery O2 Flow Rate FiO2 02/10/17 12:00 Nasal Cannula 3.0 02/10/17 10:50 36.8 65 20 99/63 (75) 95 02/08/17 07:16 45 Physical Exam: General Appearance: WD/WN, no apparent distress Eyes: bilateral eyes normal inspection, bilateral eyes PERRL, bilateral eyes EOMI ENT: normal ENT inspection, hearing grossly normal Neck: supple, no adenopathy, thyroid normal, no JVD, no carotid bruits, trachea midline Respiratory/Chest: lungs clear, normal breath sounds, no respiratory distress, no accessory muscle use, + pertinent finding (reproducible chest pain under right breast) Cardiovascular: no murmur, + irregularly irregular Abdomen: normal bowel sounds, non tender, soft, no organomegaly, no pulsatile mass Extremities: normal inspection, no pedal edema, no calf tenderness Neurologic/Psychiatric: 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 SOB pleural effusion PE ruled out no objective findings of ischemia likely secondary to effusion and/or copd exac will defer further treatment to pulmonary 2. chest pain resolved no objective cardiac findings 3. ESRD nephrology following closely
--- NOTE | 2017-02-10 14:04 | Clinical Documentation Query ---
CLINICAL DOCUMENTATION QUERY 71 year old female with PMH DM type 2, Tobacco abuse, Paroxysmal AFib, ESRD on HD, HTN, COPD, CHF presents to the Emergency Room with complaints of worsening SOB. In your clinical opinion is this patient being managed for: ( ) Acute on chronic respiratory failure with hypoxia ( ) Not Agree ( x ) Other explanation of clinical findings: she had acute on chronic respiratory failure when she was admitted 2/2 CHF, however, she is now compensated and at her baseline, which would make her Dx: chronic respiratory failure ( ) Unable to determine (Please Define) ( ) Need to Discuss The medical record reflects the following clinical findings, treatment, and risk factors. Clinical Indicators: Acute respiratory distress with resp rate of 24, diminished breath sounds, "gasping for air", "unable to talk", documented per Pulmonary consult Treatment: CPAP, Lasix IV, telemetry Risk Factors: COPD, +smoker, ESRD Please clarify and document your clinical opinion in the progress notes and discharge summary. Terms such as "probable", "suspected", "likely", "questionable", "possible", or "still to be ruled out" are acceptable. IF IN AGREEMENT, YOU MUST DOCUMENT ABOVE DIAGNOSTIC STATEMENT IN DAILY PROGRESS NOTES AND DISCHARGE SUMMARY. This document is not part of the patient's record. Thank You, Marlyn Stephens RN [phone]
--- NOTE | 2017-02-10 15:20 | Progress Note ---
Progress Note Date of Service Feb 10, 2017. Progress Note Imaging reviewed by Dr Vale. CTA demonstrates mild mesenteric stenosis, not contributing to pt abd pain. Would not recommend renal artery intervention d/t nonfunctioning kidneys. If HTN becomes unmanageable, would recommend nephrectomy. Discussed with pt and family. Please call if needed.
[2017-02-10] MEDS: WARFARIN SOD 7.5 MG TAB PO SCH (16:01)
[2017-02-11] VITALS (23 sets, daily range): BP systolic 90–137; BP diastolic 35–68; PULSE 63–127; TEMP 36.5–37; O2SAT 92–99
[2017-02-11 05:22] LABS: HEMATOCRIT 27.3 % (37-47); MEAN CELL VOLUME 108.8 fL (80-100); MEAN CORPUSCULAR HEMOGLOBIN 34.7 pg (25-34); MEAN CORPUSCULAR HGB CONC 31.9 g/dl (32-36); MEAN PLATELET VOLUME 9.9 fL (7.4-10.4); PLATELET COUNT 116 K/uL (130-400); RED BLOOD COUNT 2.51 M/uL (4.2-5.4); WHITE BLOOD COUNT 5.59 K/uL (4.8-10.8)
[2017-02-11 05:39] LABS: PARTIAL THROMBOPLASTIN RATIO 2.4
[2017-02-11 06:03] LABS: ALB/GLOB RATIO 1.1 (0.9-2); BUN/CREATININE RATIO 6.3 (10-20); CREATININE 10.4 mg/dl (0.60-1.20); POTASSIUM 4.2 mmol/L (3.5-5.1)
[2017-02-11] MEDS: NITROGLYCERIN OINT 2% 1GM PACKET EXT SCH ×4 (06:22→23:18)
--- NOTE | 2017-02-11 06:50 | Nephrology Progress Note ---
Nephrology Progress Note Date of Service: Feb 11, 2017. Subjective 71 yo female with esrd with paroxysmal afib who presented with worsening ruq pain and underwent thorough workup from pulmonary, vascular surgery, cardiology , GI. pt currently looks better. complaining of severe low back pain now however the ruq pain is better today. still with decreased appetite. Objective Date Time Temp Pulse Resp B/P (MAP) Pulse Ox O2 Delivery O2 Flow Rate FiO2 02/11/17 04:00 95 Humidified Oxygen 3.0 02/11/17 03:30 36.8 95 20 103/63 (76) 94 Nasal Cannula 3.0 Humidified Oxygen 02/10/17 23:59 98 Humidified Oxygen 3.0 02/10/17 23:50 36.6 118 18 108/61 (77) 99 Humidified Oxygen 3.0 02/10/17 20:01 91 Nasal Cannula 3.0 02/10/17 19:46 36.8 105 20 134/74 (94) 98 Nasal Cannula 3.0 02/10/17 18:58 79 16 98 Nasal Cannula 3.0 02/10/17 16:29 91 Nasal Cannula 3.0 02/10/17 15:48 106 18 91 Nasal Cannula 3.0 02/10/17 15:21 36.7 101 18 113/70 (84) 95 Nasal Cannula 2.0 02/10/17 12:00 Nasal Cannula 3.0 02/10/17 12:00 105/70 (82) 02/10/17 10:50 36.8 65 20 99/63 (75) 95 Nasal Cannula 3.0 02/10/17 08:00 Nasal Cannula 3.0 02/10/17 07:45 37.0 85 20 115/65 (82) 94 Nasal Cannula 3.0 02/10/17 06:54 92 20 93 Nasal Cannula 3.0 Physical Exam: General-aaox3, uncomfortable Eyes-no scleral icterus ENT-mmm Neck-supple Lungs-basilar rales Heart-irregular Abdomen-nontender Extremities-mild edema Neuro-nonfocal Back-low back pain Current Inpatient Medications Medications (Trade) Dose Ordered Sig/Joan Route Start Time Stop Time Status Last Admin Dose Admin Acetaminophen (Tylenol Tab) 650 mg Q6 PRN PO 02/08/17 05:15 03/10/17 05:14 02/10/17 14:10 650 MG Albuterol (Ventolin Hfa Inhaler) 2 puffs Q4 PRN INH 02/08/17 05:15 03/10/17 05:14 Amlodipine Besylate (Norvasc Tab) 10 mg QAM PO 02/08/17 09:00 03/10/17 08:59 Future Hold 02/09/17 08:12 10 MG Calcium Acetate (Phoslo Cap) 1,334 mg TIDM PO 02/08/17 07:30 03/10/17 07:59 02/10/17 16:02 1,334 MG Clonidine HCl (Catapres Tab) 0.1 mg BID PO 02/08/17 09:00 03/10/17 08:59 02/10/17 20:41 0.1 MG Salmeterol Xinafoate/ Fluticasone (Advair Diskus 250/50 Inh) 1 puff BID INH 02/08/17 09:00 03/10/17 08:59 02/10/17 20:41 1 PUFF Furosemide (Lasix Tab) 40 mg DAILY PO 02/08/17 09:00 03/10/17 08:59 Future Hold Insulin Glargine (Lantus Solostar Pen) 26 units QAM SC 02/08/17 09:00 03/10/17 08:59 Future Hold 02/08/17 09:50 26 UNITS Lactobacillus Acidophilus (Floranex Tab) 1 tab DAILY PO 02/08/17 09:00 03/10/17 08:59 02/10/17 08:36 1 TAB Losartan Potassium (coZAAR TAB) 100 mg DAILY PO 02/08/17 09:00 03/10/17 08:59 02/10/17 08:36 100 MG Prednisolone Acetate (Pred Forte 1% Oph Susp) 1 drops DAILY OPL 02/08/17 09:00 03/10/17 08:59 02/10/17 08:38 1 DROPS Vitamin B Complex/ Vit C/Folic Acid (Nephrocaps) 1 cap DAILY PO 02/08/17 09:00 03/10/17 08:59 02/10/17 08:36 1 CAP Miscellaneous Information (Order Awaiting Action) 1 ea QS N/A 02/08/17 08:00 03/10/17 07:59 Glucose (Glucose 40% Gel) 15-30 GRAMS 15 GRAMS... UD PRN PO 02/08/17 05:15 03/10/17 05:14 Glucose (Glucose Chew Tab) 4-8 Tablets 4 Tabl... UD PRN PO 02/08/17 05:15 03/10/17 05:14 Dextrose (Dextrose 50% 50ML Syringe) 25-50ML OF 50% DW IV FOR... UD PRN IV 02/08/17 05:15 03/10/17 05:14 02/08/17 20:19 25 ML Glucagon (Glucagon Inj) 1 mg UD PRN SQ 02/08/17 05:15 03/10/17 05:14 Warfarin Sodium (Coumadin Tab) 7.5 mg DAILY@16 PO 02/08/17 16:00 03/10/17 15:59 02/10/17 16:01 7.5 MG Albuterol/ Ipratropium (Duoneb) 3 ml QIDR INH 02/08/17 08:00 03/10/17 07:59 02/10/17 18:55 3 ML Valacyclovir HCl (Valtrex Tab) 1,000 mg DAILY PO 02/08/17 09:00 03/10/17 08:59 02/10/17 08:36 1,000 MG Insulin Aspart (novoLOG ASPART) SLIDING SCALE If C... ACHS SC 02/08/17 07:00 03/10/17 06:59 02/10/17 18:21 1 UNITS Ioversol (Optiray 320) 100 ml UD PRN IV 02/08/17 12:15 02/12/17 12:14 Heparin Sodium (Porcine) 36068 unit/Dextrose 500 ml @ 30 mls/hr [id number] PRN IV 02/08/17 14:30 03/10/17 14:29 02/10/17 21:01 30 MLS/HR Pantoprazole Sodium 40 mg/ Syringe 10 ml @ 5 mls/min DAILY@ IV 02/09/17 09:00 03/11/17 08:59 02/10/17 20:41 5 MLS/MIN Clopidogrel Bisulfate (plAVix TAB) 75 mg QAM PO 02/09/17 09:00 03/11/17 08:59 02/10/17 08:36 75 MG Metoprolol Tartrate (Lopressor Tab) 50 mg BID PO 02/09/17 09:00 03/11/17 08:59 02/10/17 20:41 50 MG Nitroglycerin (Nitroglycerin 2% Oint) 1 inch Q6 EXT 02/09/17 06:00 03/11/17 05:59 02/11/17 06:22 1 INCH Lidocaine (Lidoderm Patch 5%) 1 patch QAM TD 02/10/17 09:00 03/12/17 08:59 02/10/17 08:42 1 PATCH Miscellaneous (Remove Lidoderm Patch) 1 ea DAILY@21 N/A 02/09/17 21:00 03/11/17 20:59 02/10/17 20:39 1 EA Diltiazem HCl 125 mg/Dextrose 125 ml @ 0 mls/hr Q0M PRN IV 02/09/17 16:01 03/11/17 16:00 02/10/17 05:05 10 MLS/HR Vancomycin HCl (Consult) 1 ea UD PRN N/A 02/10/17 05:45 03/12/17 05:44 Insulin Glargine (Lantus Solostar Pen) 13 units QAM SC 02/10/17 09:00 03/12/17 08:59 02/10/17 08:48 13 UNITS Oxycodone HCl (Roxicodone Immediate Rel Tab) 5 mg Q6H PRN PO 02/10/17 12:00 02/24/17 11:59 Dicyclomine HCl (Bentyl Tab) 20 mg TIDM PO 02/10/17 12:00 03/12/17 11:59 02/10/17 16:01 20 MG Epoetin Hakan (Procrit Inj) 10,000 units 0800 IV. 02/11/17 08:00 02/11/17 12:00 Albumin Human (Albumin 25%) 12.5 gm 0800,0900 IV 02/11/17 08:00 02/11/17 14:00 Last 24 Hours Test 02/10/17 12:23 02/10/17 16:41 02/10/17 20:21 02/11/17 05:09 Bedside Glucose 165 mg/dl 161 mg/dl 174 mg/dl White Blood Count 5.59 K/uL Red Blood Count 2.51 M/uL Hemoglobin 8.7 g/dL Hematocrit 27.3 % Mean Corpuscular Volume 108.8 fL Mean Corpuscular Hemoglobin 34.7 pg Mean Corpuscular Hemoglobin Concent 31.9 g/dl RDW Standard Deviation 65.9 fL RDW Coefficient of Variation 16.5 % Platelet Count 116 K/uL Mean Platelet Volume 9.9 fL Activated Partial Thromboplast Time 63.2 SECONDS Partial Thromboplastin Ratio 2.4 Sodium Level 134 mmol/L Potassium Level 4.2 mmol/L Chloride Level 97 mmol/L Carbon Dioxide Level 26 mmol/L Anion Gap 11.0 mmol/L Blood Urea Nitrogen 66 mg/dl Creatinine 10.40 mg/dl Est Creatinine Clear Calc Drug Dose 6.2 ml/min Estimated GFR () 3.9 Estimated GFR (Non- 3.4 BUN/Creatinine Ratio 6.3 Random Glucose 139 mg/dl Lactic Acid Level 1.5 mmol/L Calcium Level 8.0 mg/dl Total Bilirubin 0.8 mg/dl Aspartate Amino Transf (AST/SGOT) 21 U/L Alanine Aminotransferase (ALT/SGPT) 35 U/L Alkaline Phosphatase 73 U/L Total Protein 6.1 gm/dl Albumin 3.2 gm/dl Globulin 2.9 gm/dl Albumin/Globulin Ratio 1.1 Random Vancomycin Level 13.7 mcg/ml Assessment & Plan ESRD-held off on dialysis yesterday secondary to not looking stable. pt looks more comfortable today and will proceed with dialysis today to help control volume and clear toxins. Anemia of Renal Failure-hg levels are trending down, may be dilutional. to redose procrit.
[2017-02-11] MEDS: ALBUT/IPRATROP 3MG/0.5MG NEB 3 ML VIAL INH SCH ×4 (06:58→19:24)
[2017-02-11] MEDS: INSULIN ASPART 100 UNITS/ML 3 ML PEN SC SCH ×4 (07:00→20:30)
[2017-02-11] MEDS: FLUTICASONE/SALMETEROL 250/50 (ADVAIR) 14 PUFF/1 INHALER INH SCH ×2 (07:32→20:21)
[2017-02-11] MEDS: LIDODERM (LIDOCAINE) PATCH 5% TD SCH (07:32)
[2017-02-11] MEDS: LACTOBACILLUS ACIDOPHILUS (FLORANEX) TAB PO SCH (07:33)
[2017-02-11] MEDS: CLOPIDOGREL BISULFATE 75 MG TAB PO SCH (07:33)
[2017-02-11] MEDS: CALCIUM ACETATE 667MG GELCAP PO SCH ×3 (07:33→15:29)
[2017-02-11] MEDS: LOSARTAN POTASSIUM 50 MG TAB PO SCH (07:33)
[2017-02-11] MEDS: NEPHROCAPS PO SCH (07:33)
[2017-02-11] MEDS: METOPROLOL TARTRATE 50 MG TAB PO SCH ×2 (07:34→20:22)
[2017-02-11] MEDS: CLONIDINE HCL 0.1 MG TAB PO SCH ×2 (07:34→20:22)
[2017-02-11] MEDS: DICYCLOMINE HCL 20 MG TAB PO SCH ×3 (07:34→15:29)
[2017-02-11] MEDS: PANTOprazole INJ 40 MG in SYRINGE 0 ML IV SCH ×2 (07:35→20:22)
[2017-02-11] MEDS: PrednisoLONE ACET 1% OP SUSP 5 ML BTL OPL SCH (07:35)
[2017-02-11] MEDS: INSULIN GLARGINE SOLOSTAR 100 UNITS/ML 3 ML PEN SC SCH (07:37)
[2017-02-11] MEDS ORDERED: EPOETIN ALFA 10,000 UNITS/ML VIAL IV. SCH (08:00)
[2017-02-11] MEDS: INCRUSE ELLIPTA~ORDER AWAITING ACTION SCH ×3 (08:00→15:04)
[2017-02-11] MEDS: DILTIAZEM HCL 120 MG CAPCR PO SCH (08:54)
--- NOTE | 2017-02-11 10:27 | Cardiology Follow-Up ---
Subjective Subjective Date of Service: Feb 11, 2017. Pt evaluation today including: conversation w/ patient, physical exam, chart review, lab review, review of studies, review of inpatient medication list Additional Details: Pt seen and examined, with complaint of buttock pain today. States that right sided chest pain has resolved. SOB improved as well Tele reviewed: atrial fibrillation with rates into 120's Problem List Medical Problems: (1) Anemia Status: Acute (2) Chest pain Status: Acute (3) CHF (congestive heart failure) Status: Acute (4) CHF (congestive heart failure) Status: Acute (5) Chronic obstructive pulmonary disease Status: Acute (6) COPD (chronic obstructive pulmonary disease) Status: Acute (7) COPD exacerbation Status: Acute (8) End stage renal disease Status: Acute (9) End stage renal disease on dialysis Status: Acute (10) GI bleed Status: Acute (11) GI bleed Status: Acute (12) Hemoptysis Status: Acute (13) Hypoxemia Status: Acute (14) Hypoxia Status: Acute (15) Left lower lobe pneumonia Status: Acute (16) PNA (pneumonia) Status: Acute (17) Pneumonia Status: Acute (18) Pulmonary congestion Status: Acute (19) Rapid atrial fibrillation Status: Acute (20) Respiratory failure Status: Acute (21) Shortness of breath Status: Acute (22) Supratherapeutic INR Status: Acute Review of Systems Constitutional: No fever, No chills Eyes: No worsening of vision, No eye pain Respiratory: No cough, No wheezing, No shortness of breath Cardiac: No chest pain Musculoskeletal: + muscle pain (pain in buttocks), No joint pain Female : No dysuria, No urinary frequency Neurologic: No problem reported Psychiatric: No problem reported Heme: No abnormal bleeding/bruising Endo: No problem reported Objective Vital Signs Last Vital Signs Documentation Date Time Temp Pulse Resp B/P (MAP) Pulse Ox O2 Delivery O2 Flow Rate FiO2 02/11/17 08:03 36.5 127 18 110/68 (82) 92 Nasal Cannula 02/11/17 06:58 3.0 02/08/17 07:16 45 Physical Exam: General Appearance: WD/WN, no apparent distress Eyes: bilateral eyes normal inspection, bilateral eyes PERRL, bilateral eyes EOMI ENT: normal ENT inspection, hearing grossly normal Neck: supple, no adenopathy, thyroid normal, no JVD, no carotid bruits, trachea midline Respiratory/Chest: lungs clear, normal breath sounds, no respiratory distress, no accessory muscle use, + pertinent finding (reproducible chest pain under right breast) Cardiovascular: no murmur, + irregularly irregular Abdomen: normal bowel sounds, non tender, soft, no organomegaly, no pulsatile mass Extremities: normal inspection, no pedal edema, no calf tenderness 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 SOB pleural effusion PE ruled out no objective findings of ischemia likely secondary to effusion and/or copd exac will defer further treatment to pulmonary 2. chest pain resolved no objective cardiac findings 3. ESRD nephrology following closely 4. paroxysmal atrial fibrillation did have some time in sinus yesterday with PAC's now back in afib with rvr remains asymptomatic receiving coumadin and heparin bridge, goal INR of 2-3 cont metoprolol will add cardizem cd 120mg daily, can uptitrate as necessary
--- NOTE | 2017-02-11 10:39 | Pulmonology Progress Note ---
Pulmonary Progress Note Date of Service Feb 11, 2017. Attending Dr. Ibrahim Subjective Patientis improved over the last 24 hours as far as her dyspnea at rest but still notes dyspnea on exertion with minimal transferred to chair. She currently notes some Posterior right-sided sacral/hip pain mild radiation. But she currently denies: Fever, chills, productive cough or classic cardiac chest pain. Objective Patient is able to sit up in bed no signs of respiratory distress. She is not using accessory muscles she is not tachypnea and able to complete full sentences. VS: I/Os Total: +4.2L Sao2: 92% FiO2: 3L RR: 16-20 Pulse: 95-127 Respiratory: crackles at the bases with blunted breath sounds bilaterally Cardiac: S1 and S2 irregular rhythm unable to auscultate for murmurs rubs or gallops Abdomen: Bloated, positive bowel sounds no rebound noted, mild discomfort to deep palpation right upper quadrant but no Seay sign Extremity: 2+ pitting edema gravity dependent regions Studies WBC: [id number] Plt: [id number] ABG: (02/08/17) 7.48/34/56/25 BUN: 66 Cr: 10.40 BNP: 05743 Troponin: 0.382, 0.587, 0.5 18, 0.428, 0.231 Microbiology: Blood cultures pending: MRSA swab negative Stress echocardiogram 01/25/2006 Adequate dobutamine stress achieving 85% maximum heart rate Voltage criteria met for left ventricular hypertrophy on EKG otherwise normal resting tracings Normal resting and stress left ventricular function CT angiography abdomen pelvis 02/08/2017 No signs of dissection Multi focal stenosis within the mesenteric and renal arteries Fat stranding surrounding the 2nd portion of the duodenum Small bilateral pleural effusions No evidence of acute pulmonary embolism Pulmonary function studies for 03/16/17 FEV1/FVC: 72% FEV1: 1.76/70% FVC: 2.43/74% Bronchodilator: Borderline significant change T.24/97% RV: 2.64/115% RV/T DLCO: 28% Echocardiogram 07/27/2014 Left ventricle: Moderate concentric left ventricular hypertrophy, ejection fraction= 60-65% Right ventricle: Within normal limits, TAPSE > 1.5 cm Left atrium: Moderately dilated Their 0.8 cm x 0.9 cm calcified echodensity attached to the posterior mitral leaflet IVC: Dilated inferior vena cava reduced collapsibility suggesting elevated RA pressures of 15 mmHg Grade 2 diastolic dysfunction pseudonormalization pattern noted Echocardiogram 10/26/2016 Left ventricle: EF=> 70%, left ventricular hypertrophy, Right ventricle:, TAPSE >1.5cm Left atrium: Moderately dilated Mitral valve: Heavy focal calcification of the posterior mitral valve leaflet annulus, moderate to severe mitral regurgitation Small pericardial effusion Echocardiogram 02/08/2017 Left ventricle: EF =65-70%, Right ventricle: Size and function within normal limits, TAPSE > 1.5cm Left atrium: Moderately dilated Right atrium: Moderately dilated Mitral valve: Heavy focal calcification of the posterior mitral valve leaflet annulus, moderate to severe mitral regurgitation eccentrically directed ECG 02/08/2017 (right-sided) Atrial fibrillation, rate 111 ECG 02/08/2017 (11:26) Atrial fibrillation with rate of [address] abnormalities When compared to earlier ECG [id number] rate has increased by 41 beats per minute Nonspecific change in ST segments in inferior leads ST depression in the lateral leads T-wave inversion now evident in inferior leads Nocturnal oximetry study performed 08/01/2014: There was no time spent with saturation less than or equal to 88% Assessment & Plan 71-year-old female admitted with acute on chronic respiratory insufficiency, midepigastric/right upper quadrant pain currently experiencing sacroiliac discomfort on the right side: #1 Hypoxia: At this time all the objective evidence from physical exam, serum studies, echocardiograms, radiographs, pulmonary function studies all suggest the patient's hypoxia secondary to volume overload/cardiac dysfunction. Her BMP was notably elevated to greater than 12,000 on admission with mean BNP's on patient with hemodialysis noted to be around 900. Also there is a new onset eccentric mitral regurgitation with chronic signs of left atrial dilation noted by echocardiogram. Should also note that the patient's pulmonary function studies biochemical criteria only showed mild obstructive ventilatory disease with an FEV1 of 70% but notable diffusion abnormality with a DLCO of 28% highly consistent with pulmonary vascular/cardiac dysfunction. Once again I believe this patient has volume overload and will require diuresis. #2 COPD: Patient's pulmonary functions tests suggest mild obstructive ventilatory disease. We can continue on her current inhaler regimen and when the patient is stabilized suggests slowly removing these inhalers on a trial basis as an outpatient to determine their efficacy. Sign off: Pulmonary once again will sign off on this patient. I wanted to make sure we followed up on the patient's pulmonary function studies. Data Medications: Current Inpatient Medications Medications (Trade) Dose Ordered Sig/Joan Route Start Time Stop Time Status Last Admin Dose Admin Acetaminophen (Tylenol Tab) 650 mg Q6 PRN PO 02/08/17 05:15 03/10/17 05:14 02/10/17 14:10 650 MG Albuterol (Ventolin Hfa Inhaler) 2 puffs Q4 PRN INH 02/08/17 05:15 03/10/17 05:14 Amlodipine Besylate (Norvasc Tab) 10 mg QAM PO 02/08/17 09:00 03/10/17 08:59 Future Hold 02/09/17 08:12 10 MG Calcium Acetate (Phoslo Cap) 1,334 mg TIDM PO 02/08/17 07:30 03/10/17 07:59 02/11/17 07:33 1,334 MG Clonidine HCl (Catapres Tab) 0.1 mg BID PO 02/08/17 09:00 03/10/17 08:59 02/11/17 07:34 0.1 MG Salmeterol Xinafoate/ Fluticasone (Advair Diskus 250/50 Inh) 1 puff BID INH 02/08/17 09:00 03/10/17 08:59 02/11/17 07:32 1 PUFF Furosemide (Lasix Tab) 40 mg DAILY PO 02/08/17 09:00 03/10/17 08:59 Future Hold Insulin Glargine (Lantus Solostar Pen) 26 units QAM SC 02/08/17 09:00 03/10/17 08:59 Future Hold 02/08/17 09:50 26 UNITS Lactobacillus Acidophilus (Floranex Tab) 1 tab DAILY PO 02/08/17 09:00 03/10/17 08:59 02/11/17 07:33 1 TAB Losartan Potassium (coZAAR TAB) 100 mg DAILY PO 02/08/17 09:00 03/10/17 08:59 02/11/17 07:33 100 MG Prednisolone Acetate (Pred Forte 1% Oph Susp) 1 drops DAILY OPL 02/08/17 09:00 03/10/17 08:59 02/11/17 07:35 1 DROPS Vitamin B Complex/ Vit C/Folic Acid (Nephrocaps) 1 cap DAILY PO 02/08/17 09:00 03/10/17 08:59 02/11/17 07:33 1 CAP Miscellaneous Information (Order Awaiting Action) 1 ea QS N/A 02/08/17 08:00 03/10/17 07:59 Glucose (Glucose 40% Gel) 15-30 GRAMS 15 GRAMS... UD PRN PO 02/08/17 05:15 03/10/17 05:14 Glucose (Glucose Chew Tab) 4-8 Tablets 4 Tabl... UD PRN PO 02/08/17 05:15 03/10/17 05:14 Dextrose (Dextrose 50% 50ML Syringe) 25-50ML OF 50% DW IV FOR... UD PRN IV 02/08/17 05:15 03/10/17 05:14 02/08/17 20:19 25 ML Glucagon (Glucagon Inj) 1 mg UD PRN SQ 02/08/17 05:15 03/10/17 05:14 Warfarin Sodium (Coumadin Tab) 7.5 mg DAILY@16 PO 02/08/17 16:00 03/10/17 15:59 02/10/17 16:01 7.5 MG Albuterol/ Ipratropium (Duoneb) 3 ml QIDR INH 02/08/17 08:00 03/10/17 07:59 02/11/17 06:58 3 ML Valacyclovir HCl (Valtrex Tab) 1,000 mg DAILY PO 02/08/17 09:00 03/10/17 08:59 02/11/17 07:33 1,000 MG Insulin Aspart (novoLOG ASPART) SLIDING SCALE If C... ACHS SC 02/08/17 07:00 03/10/17 06:59 02/10/17 18:21 1 UNITS Ioversol (Optiray 320) 100 ml UD PRN IV 02/08/17 12:15 02/12/17 12:14 Heparin Sodium (Porcine) 26929 unit/Dextrose 500 ml @ 30 mls/hr [id number] PRN IV 02/08/17 14:30 03/10/17 14:29 02/10/17 21:01 30 MLS/HR Pantoprazole Sodium 40 mg/ Syringe 10 ml @ 5 mls/min DAILY@ IV 02/09/17 09:00 03/11/17 08:59 02/11/17 07:35 5 MLS/MIN Clopidogrel Bisulfate (plAVix TAB) 75 mg QAM PO 02/09/17 09:00 03/11/17 08:59 02/11/17 07:33 75 MG Metoprolol Tartrate (Lopressor Tab) 50 mg BID PO 02/09/17 09:00 03/11/17 08:59 02/11/17 07:34 50 MG Nitroglycerin (Nitroglycerin 2% Oint) 1 inch Q6 EXT 02/09/17 06:00 03/11/17 05:59 02/11/17 06:22 1 INCH Lidocaine (Lidoderm Patch 5%) 1 patch QAM TD 02/10/17 09:00 03/12/17 08:59 02/10/17 08:42 1 PATCH Miscellaneous (Remove Lidoderm Patch) 1 ea DAILY@21 N/A 02/09/17 21:00 03/11/17 20:59 02/10/17 20:39 1 EA Diltiazem HCl 125 mg/Dextrose 125 ml @ 0 mls/hr Q0M PRN IV 02/09/17 16:01 03/11/17 16:00 02/10/17 05:05 10 MLS/HR Vancomycin HCl (Consult) 1 ea UD PRN N/A 02/10/17 05:45 03/12/17 05:44 Insulin Glargine (Lantus Solostar Pen) 13 units QAM SC 02/10/17 09:00 03/12/17 08:59 02/11/17 07:37 13 UNITS Oxycodone HCl (Roxicodone Immediate Rel Tab) 5 mg Q6H PRN PO 02/10/17 12:00 02/24/17 11:59 Dicyclomine HCl (Bentyl Tab) 20 mg TIDM PO 02/10/17 12:00 03/12/17 11:59 02/11/17 07:34 20 MG Epoetin Hakan (Procrit Inj) 10,000 units 0800 IV. 02/11/17 08:00 02/11/17 12:00 Albumin Human (Albumin 25%) 12.5 gm 0800,0900 IV 02/11/17 08:00 02/11/17 14:00 Diltiazem HCl (Cardizem Cd Cap) 120 mg QAM PO 02/11/17 09:00 03/13/17 08:59 02/11/17 08:54 120 MG Vancomycin HCl 1250 mg/Sodium Chloride 275 ml @ 125 mls/hr TODAY@1400 ONCE IV 02/11/17 14:00 02/11/17 16:11 Vital Signs: Date Time Temp Pulse Resp B/P (MAP) Pulse Ox O2 Delivery O2 Flow Rate FiO2 02/11/17 08:03 36.5 127 18 110/68 (82) 92 Nasal Cannula 02/11/17 06:58 110 16 99 Nasal Cannula 3.0 02/11/17 04:00 95 Humidified Oxygen 3.0 02/11/17 03:30 36.8 95 20 103/63 (76) 94 Nasal Cannula 3.0 Humidified Oxygen 02/10/17 23:59 98 Humidified Oxygen 3.0 02/10/17 23:50 36.6 118 18 108/61 (77) 99 Humidified Oxygen 3.0 02/10/17 20:01 91 Nasal Cannula 3.0 02/10/17 19:46 36.8 105 20 134/74 (94) 98 Nasal Cannula 3.0 02/10/17 18:58 79 16 98 Nasal Cannula 3.0 02/10/17 16:29 91 Nasal Cannula 3.0 02/10/17 15:48 106 18 91 Nasal Cannula 3.0 02/10/17 15:21 36.7 101 18 113/70 (84) 95 Nasal Cannula 2.0 02/10/17 12:00 Nasal Cannula 3.0 02/10/17 12:00 105/70 (82) 02/10/17 10:50 36.8 65 20 99/63 (75) 95 Nasal Cannula 3.0 Laboratory Results: Last 24 Hours Test 02/10/17 12:23 02/10/17 16:41 02/10/17 20:21 02/11/17 05:09 Bedside Glucose 165 mg/dl 161 mg/dl 174 mg/dl White Blood Count 5.59 K/uL Red Blood Count 2.51 M/uL Hemoglobin 8.7 g/dL Hematocrit 27.3 % Mean Corpuscular Volume 108.8 fL Mean Corpuscular Hemoglobin 34.7 pg Mean Corpuscular Hemoglobin Concent 31.9 g/dl RDW Standard Deviation 65.9 fL RDW Coefficient of Variation 16.5 % Platelet Count 116 K/uL Mean Platelet Volume 9.9 fL Activated Partial Thromboplast Time 63.2 SECONDS Partial Thromboplastin Ratio 2.4 Sodium Level 134 mmol/L Potassium Level 4.2 mmol/L Chloride Level 97 mmol/L Carbon Dioxide Level 26 mmol/L Anion Gap 11.0 mmol/L Blood Urea Nitrogen 66 mg/dl Creatinine 10.40 mg/dl Est Creatinine Clear Calc Drug Dose 6.2 ml/min Estimated GFR () 3.9 Estimated GFR (Non- 3.4 BUN/Creatinine Ratio 6.3 Random Glucose 139 mg/dl Lactic Acid Level 1.5 mmol/L Calcium Level 8.0 mg/dl Total Bilirubin 0.8 mg/dl Aspartate Amino Transf (AST/SGOT) 21 U/L Alanine Aminotransferase (ALT/SGPT) 35 U/L Alkaline Phosphatase 73 U/L Total Protein 6.1 gm/dl Albumin 3.2 gm/dl Globulin 2.9 gm/dl Albumin/Globulin Ratio 1.1 Random Vancomycin Level 13.7 mcg/ml Test 02/11/17 06:21 Bedside Glucose 152 mg/dl
[2017-02-11] MEDS: ALBUMIN HUMAN 25% 12.5 GM/50 ML VIAL IV SCH ×2 (11:10→12:15)
[2017-02-11 11:20] LABS: INR 1.6 (0.9-1.1); PROTHROMBIN TIME (PATIENT) 17.2 SECONDS (9.0-12.0)
[2017-02-11] MEDS ORDERED: NURSING VERBAL MED ORDER ONE (11:45)
--- NOTE | 2017-02-11 11:45 | Gastroenterology Progress Note ---
Progress Note Date of Service: Feb 11, 2017 Subjective Pt evaluation today including: conversation w/ patient, physical exam, chart review, lab review, review of studies, review of inpatient medication list 71 year old female admitted with respiratory failure, being seen by our service for right sided abdominal pain. Bentyl was increased to 20mg TID yesterday, and she does state that her abdominal pain has improved. She is tolerating her diet and denies any significant n/v, heartburn. She has no additional GI complaints. Review of Systems Constitutional: No fever, No chills Eyes: No worsening of vision, No eye pain ENT: No hearing loss Respiratory: No cough Cardiac: No chest pain Abdomen: + see HPI Musculoskeletal: + muscle pain (pain across lower back/buttocks) Female : No dysuria Neuro: No problem reported Psych: No problem reported Heme: No abnormal bleeding/bruising Endo: No problem reported Skin: No rash, No itch Medications Current Inpatient Medications Medications (Trade) Dose Ordered Sig/Joan Route Start Time Stop Time Status Last Admin Dose Admin Acetaminophen (Tylenol Tab) 650 mg Q6 PRN PO 02/08/17 05:15 03/10/17 05:14 02/10/17 14:10 650 MG Albuterol (Ventolin Hfa Inhaler) 2 puffs Q4 PRN INH 02/08/17 05:15 03/10/17 05:14 Amlodipine Besylate (Norvasc Tab) 10 mg QAM PO 02/08/17 09:00 03/10/17 08:59 Future Hold 02/09/17 08:12 10 MG Calcium Acetate (Phoslo Cap) 1,334 mg TIDM PO 02/08/17 07:30 03/10/17 07:59 02/11/17 07:33 1,334 MG Clonidine HCl (Catapres Tab) 0.1 mg BID PO 02/08/17 09:00 03/10/17 08:59 02/11/17 07:34 0.1 MG Salmeterol Xinafoate/ Fluticasone (Advair Diskus 250/50 Inh) 1 puff BID INH 02/08/17 09:00 03/10/17 08:59 02/11/17 07:32 1 PUFF Furosemide (Lasix Tab) 40 mg DAILY PO 02/08/17 09:00 03/10/17 08:59 Future Hold Insulin Glargine (Lantus Solostar Pen) 26 units QAM SC 02/08/17 09:00 03/10/17 08:59 Future Hold 02/08/17 09:50 26 UNITS Lactobacillus Acidophilus (Floranex Tab) 1 tab DAILY PO 02/08/17 09:00 03/10/17 08:59 02/11/17 07:33 1 TAB Losartan Potassium (coZAAR TAB) 100 mg DAILY PO 02/08/17 09:00 03/10/17 08:59 02/11/17 07:33 100 MG Prednisolone Acetate (Pred Forte 1% Oph Susp) 1 drops DAILY OPL 02/08/17 09:00 03/10/17 08:59 02/11/17 07:35 1 DROPS Vitamin B Complex/ Vit C/Folic Acid (Nephrocaps) 1 cap DAILY PO 02/08/17 09:00 03/10/17 08:59 02/11/17 07:33 1 CAP Miscellaneous Information (Order Awaiting Action) 1 ea QS N/A 02/08/17 08:00 03/10/17 07:59 Glucose (Glucose 40% Gel) 15-30 GRAMS 15 GRAMS... UD PRN PO 02/08/17 05:15 03/10/17 05:14 Glucose (Glucose Chew Tab) 4-8 Tablets 4 Tabl... UD PRN PO 02/08/17 05:15 03/10/17 05:14 Dextrose (Dextrose 50% 50ML Syringe) 25-50ML OF 50% DW IV FOR... UD PRN IV 02/08/17 05:15 03/10/17 05:14 02/08/17 20:19 25 ML Glucagon (Glucagon Inj) 1 mg UD PRN SQ 02/08/17 05:15 03/10/17 05:14 Warfarin Sodium (Coumadin Tab) 7.5 mg DAILY@16 PO 02/08/17 16:00 03/10/17 15:59 02/10/17 16:01 7.5 MG Albuterol/ Ipratropium (Duoneb) 3 ml QIDR INH 02/08/17 08:00 03/10/17 07:59 02/11/17 06:58 3 ML Valacyclovir HCl (Valtrex Tab) 1,000 mg DAILY PO 02/08/17 09:00 03/10/17 08:59 02/11/17 07:33 1,000 MG Insulin Aspart (novoLOG ASPART) SLIDING SCALE If C... ACHS SC 02/08/17 07:00 03/10/17 06:59 02/10/17 18:21 1 UNITS Ioversol (Optiray 320) 100 ml UD PRN IV 02/08/17 12:15 02/12/17 12:14 Heparin Sodium (Porcine) 04776 unit/Dextrose 500 ml @ 30 mls/hr [id number] PRN IV 02/08/17 14:30 03/10/17 14:29 02/10/17 21:01 30 MLS/HR Pantoprazole Sodium 40 mg/ Syringe 10 ml @ 5 mls/min DAILY@ IV 02/09/17 09:00 03/11/17 08:59 02/11/17 07:35 5 MLS/MIN Clopidogrel Bisulfate (plAVix TAB) 75 mg QAM PO 02/09/17 09:00 03/11/17 08:59 02/11/17 07:33 75 MG Metoprolol Tartrate (Lopressor Tab) 50 mg BID PO 02/09/17 09:00 03/11/17 08:59 02/11/17 07:34 50 MG Nitroglycerin (Nitroglycerin 2% Oint) 1 inch Q6 EXT 02/09/17 06:00 03/11/17 05:59 02/11/17 06:22 1 INCH Lidocaine (Lidoderm Patch 5%) 1 patch QAM TD 02/10/17 09:00 03/12/17 08:59 02/10/17 08:42 1 PATCH Miscellaneous (Remove Lidoderm Patch) 1 ea DAILY@21 N/A 02/09/17 21:00 03/11/17 20:59 02/10/17 20:39 1 EA Diltiazem HCl 125 mg/Dextrose 125 ml @ 0 mls/hr Q0M PRN IV 02/09/17 16:01 03/11/17 16:00 02/10/17 05:05 10 MLS/HR Vancomycin HCl (Consult) 1 ea UD PRN N/A 02/10/17 05:45 03/12/17 05:44 Insulin Glargine (Lantus Solostar Pen) 13 units QAM SC 02/10/17 09:00 03/12/17 08:59 02/11/17 07:37 13 UNITS Oxycodone HCl (Roxicodone Immediate Rel Tab) 5 mg Q6H PRN PO 02/10/17 12:00 02/24/17 11:59 Dicyclomine HCl (Bentyl Tab) 20 mg TIDM PO 02/10/17 12:00 03/12/17 11:59 02/11/17 07:34 20 MG Epoetin Hakan (Procrit Inj) 10,000 units 0800 IV. 02/11/17 08:00 02/11/17 12:00 Albumin Human (Albumin 25%) 12.5 gm 0800,0900 IV 02/11/17 08:00 02/11/17 14:00 Diltiazem HCl (Cardizem Cd Cap) 120 mg QAM PO 02/11/17 09:00 03/13/17 08:59 02/11/17 08:54 120 MG Vancomycin HCl 1250 mg/Sodium Chloride 275 ml @ 125 mls/hr TODAY@1400 ONCE IV 02/11/17 14:00 02/11/17 16:11 Objective Vital Signs Date Time Temp Pulse Resp B/P (MAP) Pulse Ox O2 Delivery O2 Flow Rate FiO2 02/11/17 08:03 36.5 127 18 110/68 (82) 92 Nasal Cannula 02/11/17 08:00 Nasal Cannula 3.0 02/11/17 06:58 110 16 99 Nasal Cannula 3.0 02/11/17 04:00 95 Humidified Oxygen 3.0 02/11/17 03:30 36.8 95 20 103/63 (76) 94 Nasal Cannula 3.0 Humidified Oxygen 02/10/17 23:59 98 Humidified Oxygen 3.0 02/10/17 23:50 36.6 118 18 108/61 (77) 99 Humidified Oxygen 3.0 02/10/17 20:01 91 Nasal Cannula 3.0 02/10/17 19:46 36.8 105 20 134/74 (94) 98 Nasal Cannula 3.0 02/10/17 18:58 79 16 98 Nasal Cannula 3.0 02/10/17 16:29 91 Nasal Cannula 3.0 02/10/17 15:48 106 18 91 Nasal Cannula 3.0 02/10/17 15:21 36.7 101 18 113/70 (84) 95 Nasal Cannula 2.0 02/10/17 12:00 Nasal Cannula 3.0 02/10/17 12:00 105/70 (82) Physical Exam General Appearance: no apparent distress Eyes: normal inspection ENT: hearing grossly normal Neck: supple Respiratory/Chest: lungs clear, normal breath sounds, no respiratory distress, no accessory muscle use Cardiovascular: + pertinent finding (irregular) Abdomen: normal bowel sounds, non tender, soft Extremities: + pedal edema (1+) Neurologic/Psych: alert Skin: normal color, no jaundice, warm/dry Laboratory Results Last 24 Hours Test 02/10/17 12:23 02/10/17 16:41 02/10/17 20:21 02/11/17 05:09 Bedside Glucose 165 mg/dl 161 mg/dl 174 mg/dl White Blood Count 5.59 K/uL Red Blood Count 2.51 M/uL Hemoglobin 8.7 g/dL Hematocrit 27.3 % Mean Corpuscular Volume 108.8 fL Mean Corpuscular Hemoglobin 34.7 pg Mean Corpuscular Hemoglobin Concent 31.9 g/dl RDW Standard Deviation 65.9 fL RDW Coefficient of Variation 16.5 % Platelet Count 116 K/uL Mean Platelet Volume 9.9 fL Activated Partial Thromboplast Time 63.2 SECONDS Partial Thromboplastin Ratio 2.4 Sodium Level 134 mmol/L Potassium Level 4.2 mmol/L Chloride Level 97 mmol/L Carbon Dioxide Level 26 mmol/L Anion Gap 11.0 mmol/L Blood Urea Nitrogen 66 mg/dl Creatinine 10.40 mg/dl Est Creatinine Clear Calc Drug Dose 6.2 ml/min Estimated GFR () 3.9 Estimated GFR (Non- 3.4 BUN/Creatinine Ratio 6.3 Random Glucose 139 mg/dl Lactic Acid Level 1.5 mmol/L Calcium Level 8.0 mg/dl Total Bilirubin 0.8 mg/dl Aspartate Amino Transf (AST/SGOT) 21 U/L Alanine Aminotransferase (ALT/SGPT) 35 U/L Alkaline Phosphatase 73 U/L Total Protein 6.1 gm/dl Albumin 3.2 gm/dl Globulin 2.9 gm/dl Albumin/Globulin Ratio 1.1 Random Vancomycin Level 13.7 mcg/ml Test 02/11/17 06:21 02/11/17 10:55 Bedside Glucose 152 mg/dl Prothrombin Time 17.2 SECONDS Prothromb Time International Ratio 1.6 Assessment and Plan 71 year old female with RUQ abdominal pain of unclear origin - ? patient may have radiation of pain into the abdomen from the back, with imaging showing spinal stenosis. The pain has now improved. Would continue Bentyl 20mg TID with meals. Please call with questions.
[2017-02-11] MEDS ORDERED: VANCOMYCIN INJ 1,250 MG in SODIUM CHLORIDE 0.9% 250ML 250 ML IV ONE (14:00)
--- NOTE | 2017-02-11 14:36 | Pharmacy Progress Note ---
Pharmacy Abx Dose Short Note Date of Service Feb 11, 2017. Assessment & Plan Assessment 71 year old female receiving empiric vancomycin treatment Day # 2 of antimicrobial therapy. WBC normal, Afebrile, Blood cultures pending Received HD today Plan Vancomycin * Trough level of 13.7 mcg/mL is subtherapeutic * Patient received HD this morning, estimate level after HD ~10 * Redose with 1250 mg x 1 after HD to target peak ~30 * Random level ordered in AM to assist with dosing * Antibiotics currently empiric for 48 hours- will need to clarify with physician if vancomycin is needed to continue after tomorrow Pharmacy will continue to follow and will adjust dose/frequency as necessary. Thank you.
[2017-02-11] MEDS: ACETAMINOPHEN 325 MG TAB PO PRN (15:11)
[2017-02-11] MEDS: WARFARIN SOD 7.5 MG TAB PO SCH (15:29)
[2017-02-11] MEDS ORDERED: LIDOCAINE/PRILOCAINE 2.5% EA CRM EXT PRN (20:15)
--- NOTE | 2017-02-11 22:38 | Progress Note ---
Medicine Progress Note Date & Time of Visit: Feb 11, 2017 at 16:50. Subjective 71 yo F presented with SOB and subsequently developed fever with lower back pain and persistent RUQ pain. She was placed on Vancomycin empirically with resolution of her fever and clinical improvement. Blood cultures are pending. Her RUQ pain is much improved today and she mentioned to me she has actually had this same type of pain in her abdomen when she has had dialysis sessions where there was ultrafiltrate removed. Her pain appears consistent with a chronic mesenteric ischemia. She continues to improve after dialysis with 1700 mL removed. Tolerating PO, denies chest pain or shortness of breath. Objective Last 8 Hrs Date Time Temp Pulse Resp B/P (MAP) Pulse Ox O2 Delivery O2 Flow Rate FiO2 02/11/17 16:00 Nasal Cannula 3.0 Humidified Oxygen 02/11/17 15:54 36.9 103 20 137/66 (89) 99 Nasal Cannula 3.0 Humidified Oxygen 02/11/17 15:08 36.6 81 106/42 (63) 02/11/17 14:00 96 108/52 02/11/17 13:45 90 106/56 02/11/17 13:30 85 100/50 02/11/17 13:15 87 103/49 02/11/17 13:00 88 90/54 02/11/17 12:45 63 101/41 02/11/17 12:30 81 94/44 02/11/17 12:15 89 97/35 02/11/17 12:00 82 106/48 02/11/17 11:45 110 104/50 02/11/17 11:30 98 107/55 02/11/17 11:15 104 106/46 02/11/17 10:59 37.0 94 104/55 (71) Physical Exam: GEN: obese, sitting in chair, moving around in chair much easier than yesterday. Alert and appropriate. HEENT: NC/AT, normal sclerae, MMM CARDIO: reg rate, S1/2 heard without m/g/r LUNGS: CTA bilaterally but diminished breath sounds at bases, no crackles, rales or wheezes, good diaphragmatic excursion ABD: soft, obese, non-tender, non-distended, +BS BACK: no spinous process TTP, TTP along lower lumbar paraspinal musculature. TTP along SI joints/PSIS's and piriformis/gluteal muscles bilaterally, but worse on the L side. EXTREMITY: RP and DP palpable 2+ bilat, no LE swelling or edema, extremities are warm and well-perfused NEURO: CN 2-12 grossly intact, sensation intact throughout, no gross focal deficit. MUSC: 5/5 strength throughout, no focal deficits, generalized weakness noted. SKIN: warm and dry Laboratory Results: 02/11/17 05:09 02/11/17 05:09 Test 02/08/17 02:12 02/08/17 02:19 02/08/17 02:21 02/08/17 06:50 Polychromasia 1+ Ovalocytes 1+ Bedside Lactic Acid Venous 0.93 mmol/L (0.90-1.70) Bedside Troponin I < 0.030 ng/ml (0-0.045) Pro-B-Type Natriuretic Peptide 93514 pg/ml (0-900) Test 02/08/17 11:50 02/09/17 04:18 02/09/17 10:27 02/10/17 04:31 Blood Gas Sample Site R Radial Bedside Blood Gas pH (LAB) 7.48 (7.35-7.45) Bedside Blood Gas pCO2 (LAB) 34 mmHg (35-46) Bedside Blood Gas pO2 (LAB) 56 mmHg (80-95) Bedside Blood Gas HCO3 (LAB) 25 meq/L (19-24) Bedside Blood Gas Total CO2 26 mEq/l (24-31) Bedside Blood Gas Base Excess (LAB) 1.0 meq/L (-9-1.8) Bedside Blood Gas O2 Saturation 91.0 % (90-95) Dar Test Pass Oxygen Delivery Device Cannula Triglycerides Level 89 mg/dl (0-150) Cholesterol Level 87 mg/dl (0-200) HDL Cholesterol 36 mg/dl LDL Cholesterol, Calculated 33 mg/dl VLDL Cholesterol, Calculated 18 mg/dl Cholesterol/HDL Ratio 2.4 Direct Bilirubin 0.3 mg/dl (0-0.2) Lipase 54 U/L (73-393) Immature Granulocyte % (Auto) 0.3 % White Blood Count 6.75 K/uL (4.8-10.8) Red Blood Count 2.60 M/uL (4.2-5.4) Hemoglobin 9.0 g/dL (12.0-16.0) Hematocrit 28.9 % (37-47) Mean Corpuscular Volume 111.2 fL (80-100) Mean Corpuscular Hemoglobin 34.6 pg (25-34) Mean Corpuscular Hemoglobin Concent 31.1 g/dl (32-36) Platelet Count 133 K/uL (130-400) Mean Platelet Volume 11.1 fL (7.4-10.4) Neutrophils (%) (Auto) 76.1 % Lymphocytes (%) (Auto) 10.7 % Monocytes (%) (Auto) 12.3 % Eosinophils (%) (Auto) 0.3 % Basophils (%) (Auto) 0.3 % Neutrophils # (Auto) 5.14 K/uL (1.4-6.5) Lymphocytes # (Auto) 0.72 K/uL (1.2-3.4) Monocytes # (Auto) 0.83 K/uL (0.11-0.59) Eosinophils # (Auto) 0.02 K/uL (0-0.5) Basophils # (Auto) 0.02 K/uL (0-0.2) Immature Granulocyte # (Auto) 0.02 K/uL (0.00-0.02) Hypersegmented Polys 1+ Macrocytosis PRESENT Magnesium Level 2.0 mg/dl (1.8-2.4) Total Creatine Kinase 521 U/L (26-192) Creatine Kinase MB 2.4 ng/ml (0.5-3.6) Creatine Kinase MB Ratio 0.5 (0-3.0) Troponin I 0.231 ng/ml (0-0.045) Procalcitonin 2.80 ng/ml (0-0.5) Test 02/11/17 05:09 02/11/17 10:55 02/11/17 20:13 Red Blood Count 2.51 M/uL (4.2-5.4) Mean Corpuscular Volume 108.8 fL (80-100) Mean Corpuscular Hemoglobin 34.7 pg (25-34) Mean Corpuscular Hemoglobin Concent 31.9 g/dl (32-36) RDW Standard Deviation 65.9 fL (36.4-46.3) RDW Coefficient of Variation 16.5 % (11.5-14.5) Mean Platelet Volume 9.9 fL (7.4-10.4) Activated Partial Thromboplast Time 63.2 SECONDS (21.0-31.0) Partial Thromboplastin Ratio 2.4 Anion Gap 11.0 mmol/L (3-11) Est Creatinine Clear Calc Drug Dose 6.2 ml/min Estimated GFR () 3.9 Estimated GFR (Non- 3.4 BUN/Creatinine Ratio 6.3 (10-20) Lactic Acid Level 1.5 mmol/L (0.4-2.0) Calcium Level 8.0 mg/dl (8.5-10.1) Total Bilirubin 0.8 mg/dl (0.2-1) Aspartate Amino Transf (AST/SGOT) 21 U/L (15-37) Alanine Aminotransferase (ALT/SGPT) 35 U/L (12-78) Alkaline Phosphatase 73 U/L (45-117) Total Protein 6.1 gm/dl (6.4-8.2) Albumin 3.2 gm/dl (3.4-5.0) Globulin 2.9 gm/dl (2.5-4.0) Albumin/Globulin Ratio 1.1 (0.9-2) Random Vancomycin Level 13.7 mcg/ml Prothrombin Time 17.2 SECONDS (9.0-12.0) Prothromb Time International Ratio 1.6 (0.9-1.1) Bedside Glucose 193 mg/dl (70-90) Date/Time Source Procedure Growth Status 02/10/17 04:36 Blood Blood Culture Pending Received 02/08/17 06:00 Nasal MRSA DNA Surveillance Screen - Final Specimen Negative for MRSA by DNA Probe Complete Last 24 Hours Test 02/10/17 20:21 02/11/17 05:09 02/11/17 06:21 02/11/17 10:55 Bedside Glucose 174 mg/dl 152 mg/dl White Blood Count 5.59 K/uL Red Blood Count 2.51 M/uL Hemoglobin 8.7 g/dL Hematocrit 27.3 % Mean Corpuscular Volume 108.8 fL Mean Corpuscular Hemoglobin 34.7 pg Mean Corpuscular Hemoglobin Concent 31.9 g/dl RDW Standard Deviation 65.9 fL RDW Coefficient of Variation 16.5 % Platelet Count 116 K/uL Mean Platelet Volume 9.9 fL Activated Partial Thromboplast Time 63.2 SECONDS Partial Thromboplastin Ratio 2.4 Sodium Level 134 mmol/L Potassium Level 4.2 mmol/L Chloride Level 97 mmol/L Carbon Dioxide Level 26 mmol/L Anion Gap 11.0 mmol/L Blood Urea Nitrogen 66 mg/dl Creatinine 10.40 mg/dl Est Creatinine Clear Calc Drug Dose 6.2 ml/min Estimated GFR () 3.9 Estimated GFR (Non- 3.4 BUN/Creatinine Ratio 6.3 Random Glucose 139 mg/dl Lactic Acid Level 1.5 mmol/L Calcium Level 8.0 mg/dl Total Bilirubin 0.8 mg/dl Aspartate Amino Transf (AST/SGOT) 21 U/L Alanine Aminotransferase (ALT/SGPT) 35 U/L Alkaline Phosphatase 73 U/L Total Protein 6.1 gm/dl Albumin 3.2 gm/dl Globulin 2.9 gm/dl Albumin/Globulin Ratio 1.1 Random Vancomycin Level 13.7 mcg/ml Prothrombin Time 17.2 SECONDS Prothromb Time International Ratio 1.6 Test 02/11/17 14:43 Bedside Glucose 127 mg/dl Assessment & Plan 71 yo F presented with SOB and subsequently developed fever with lower back pain and persistent RUQ pain. She was placed on Vancomycin empirically with resolution of her fever and clinical improvement. Blood cultures are pending. Her RUQ pain is much improved today and she mentioned to me she has actually had this same type of pain in her abdomen when she has had dialysis sessions where there was ultrafiltrate removed. Her pain appears consistent with a chronic mesenteric ischemia. She continues to improve after dialysis with 1700 mL removed. Tolerating PO, denies chest pain or shortness of breath. 1. RUQ pain-etiologies considered and ruled out include PE, aortic dissection and acute CT. There was no rib pathology in this area on CT scan. Lipase was normal on admission, she is tolerating PO and pain is not epigastric. A CTA was performed revealing multiple areas of mesenteric stenosis and renal artery stenosis. Vascular was consulted but did not feel this was contributing to her current pain and opted against any surgical intervention at this time. Lactate is negative. GI was consulted and agrees the pain is idiopathic at this point, and has her on supportive care with PPI. Back pain and fever prompted evaluation of Lower back with L spine MRI-spinal stenosis was seen but no evidence of infection was present. With history of this pain in the past with fluid shifts, this intermittent abdominal pain is most consistent with chronic mesenteric ischemia. She is greatly improved today. Will avoid hypotension. 2. Acute lower back/gluteal/piriformis pain-began during this hospitalization, moving better today. PT/OT was ordered. MRI revealed spinal stenosis; pt agrees that she feels better flexing forward at the hips. Pain likely related to MSK pain and reproducible over the musculature and although no overt neurologic deficits, she cannot lie flat or move very well. Will obtain an MRI without contrast. 3. Acute on chronic diastolic heart failure-compensated? at this point with breathing at baseline on 2.5L O2 via NC. Noted that patient has worsening mitral valve disease on recent echocardiogram and current hypoxia is thought secondary to fluid overload as opposed to COPD as recent PFTs were relatively normal. Cont fluid management with HD as needed for persistent bilateral pleural effusions. 4. Chronic hypoxic respiratory failure 2/2 COPD-no wheezing on exam, appears stable. Cont Advair and Duonebs in addition to home oxygen supplementation. Encourage to quit smoking. 5. Elevated troponin-no new focal wall motion abnormalities. Valvular disease and ESRD present. No chest pain. 6. Atrial fibrillation with RVR-diltiazem drip, metoprolol, heparin drip as bridge to warfarin while admitted. 7. ESRD-cont HD, appreciate Nephro input. 8. HTN-controlled, cont metoprolol, amlodipine, losartan and clonidine. 9. DMII-controlled at home. Lantus at 50%. Resuming full 26 Unit dosing as sugars have increased and patient is consistently eating. 10. Anemia-stable related to chronic disease. VTE PROPHYLAXIS SCD's. IV heparin / titrate warfarin. DISPOSITION-uncertain at this time [facility] Consultants: Nephrology Cardiology Pulmonary GI . Current Inpatient Medications: Current Inpatient Medications Medications (Trade) Dose Ordered Sig/Joan Route Start Time Stop Time Status Last Admin Dose Admin Acetaminophen (Tylenol Tab) 650 mg Q6 PRN PO 02/08/17 05:15 03/10/17 05:14 02/11/17 15:11 650 MG Albuterol (Ventolin Hfa Inhaler) 2 puffs Q4 PRN INH 02/08/17 05:15 03/10/17 05:14 Amlodipine Besylate (Norvasc Tab) 10 mg QAM PO 02/08/17 09:00 03/10/17 08:59 Future Hold 02/09/17 08:12 10 MG Calcium Acetate (Phoslo Cap) 1,334 mg TIDM PO 02/08/17 07:30 03/10/17 07:59 02/11/17 15:29 1,334 MG Clonidine HCl (Catapres Tab) 0.1 mg BID PO 02/08/17 09:00 03/10/17 08:59 02/11/17 07:34 0.1 MG Salmeterol Xinafoate/ Fluticasone (Advair Diskus 250/50 Inh) 1 puff BID INH 02/08/17 09:00 03/10/17 08:59 02/11/17 07:32 1 PUFF Furosemide (Lasix Tab) 40 mg DAILY PO 02/08/17 09:00 03/10/17 08:59 Future Hold Insulin Glargine (Lantus Solostar Pen) 26 units QAM SC 02/08/17 09:00 03/10/17 08:59 Future Hold 02/08/17 09:50 26 UNITS Lactobacillus Acidophilus (Floranex Tab) 1 tab DAILY PO 02/08/17 09:00 03/10/17 08:59 02/11/17 07:33 1 TAB Losartan Potassium (coZAAR TAB) 100 mg DAILY PO 02/08/17 09:00 03/10/17 08:59 02/11/17 07:33 100 MG Prednisolone Acetate (Pred Forte 1% Oph Susp) 1 drops DAILY OPL 02/08/17 09:00 03/10/17 08:59 02/11/17 07:35 1 DROPS Vitamin B Complex/ Vit C/Folic Acid (Nephrocaps) 1 cap DAILY PO 02/08/17 09:00 03/10/17 08:59 02/11/17 07:33 1 CAP Miscellaneous Information (Order Awaiting Action) 1 ea QS N/A 02/08/17 08:00 03/10/17 07:59 Glucose (Glucose 40% Gel) 15-30 GRAMS 15 GRAMS... UD PRN PO 02/08/17 05:15 03/10/17 05:14 Glucose (Glucose Chew Tab) 4-8 Tablets 4 Tabl... UD PRN PO 02/08/17 05:15 03/10/17 05:14 Dextrose (Dextrose 50% 50ML Syringe) 25-50ML OF 50% DW IV FOR... UD PRN IV 02/08/17 05:15 03/10/17 05:14 02/08/17 20:19 25 ML Glucagon (Glucagon Inj) 1 mg UD PRN SQ 02/08/17 05:15 03/10/17 05:14 Warfarin Sodium (Coumadin Tab) 7.5 mg DAILY@16 PO 02/08/17 16:00 03/10/17 15:59 02/11/17 15:29 7.5 MG Albuterol/ Ipratropium (Duoneb) 3 ml QIDR INH 02/08/17 08:00 03/10/17 07:59 02/11/17 06:58 3 ML Valacyclovir HCl (Valtrex Tab) 1,000 mg DAILY PO 02/08/17 09:00 03/10/17 08:59 02/11/17 07:33 1,000 MG Insulin Aspart (novoLOG ASPART) SLIDING SCALE If C... ACHS SC 02/08/17 07:00 03/10/17 06:59 02/11/17 15:31 1 UNITS Ioversol (Optiray 320) 100 ml UD PRN IV 02/08/17 12:15 02/12/17 12:14 Heparin Sodium (Porcine) 57275 unit/Dextrose 500 ml @ 30 mls/hr [id number] PRN IV 02/08/17 14:30 03/10/17 14:29 02/10/17 21:01 30 MLS/HR Pantoprazole Sodium 40 mg/ Syringe 10 ml @ 5 mls/min DAILY@ IV 02/09/17 09:00 02/11/17 23:59 02/11/17 07:35 5 MLS/MIN Clopidogrel Bisulfate (plAVix TAB) 75 mg QAM PO 02/09/17 09:00 03/11/17 08:59 02/11/17 07:33 75 MG Metoprolol Tartrate (Lopressor Tab) 50 mg BID PO 02/09/17 09:00 03/11/17 08:59 02/11/17 07:34 50 MG Nitroglycerin (Nitroglycerin 2% Oint) 1 inch Q6 EXT 02/09/17 06:00 03/11/17 05:59 02/11/17 06:22 1 INCH Lidocaine (Lidoderm Patch 5%) 1 patch QAM TD 02/10/17 09:00 03/12/17 08:59 02/10/17 08:42 1 PATCH Miscellaneous (Remove Lidoderm Patch) 1 ea DAILY@21 N/A 02/09/17 21:00 03/11/17 20:59 02/10/17 20:39 1 EA Vancomycin HCl (Consult) 1 ea UD PRN N/A 02/10/17 05:45 03/12/17 05:44 Insulin Glargine (Lantus Solostar Pen) 13 units QAM SC 02/10/17 09:00 03/12/17 08:59 02/11/17 07:37 13 UNITS Oxycodone HCl (Roxicodone Immediate Rel Tab) 5 mg Q6H PRN PO 02/10/17 12:00 02/24/17 11:59 Dicyclomine HCl (Bentyl Tab) 20 mg TIDM PO 02/10/17 12:00 03/12/17 11:59 02/11/17 15:29 20 MG Diltiazem HCl (Cardizem Cd Cap) 120 mg QAM PO 02/11/17 09:00 03/13/17 08:59 02/11/17 08:54 120 MG Pantoprazole Sodium (Protonix Tab) 40 mg BID PO 02/12/17 09:00 03/14/17 08:59
[2017-02-12] VITALS (27 sets, daily range): BP systolic 90–135; BP diastolic 43–76; PULSE 81–106; TEMP 36.4–37.5; O2SAT 91–100
[2017-02-12] MEDS: NITROGLYCERIN OINT 2% 1GM PACKET EXT SCH ×3 (06:33→17:29)
[2017-02-12] MEDS: ALBUT/IPRATROP 3MG/0.5MG NEB 3 ML VIAL INH SCH ×2 (07:04→11:02)
[2017-02-12 07:07] LABS: INR 1.7 (0.9-1.1); PARTIAL THROMBOPLASTIN RATIO 2.2; PROTHROMBIN TIME (PATIENT) 18.1 SECONDS (9.0-12.0)
[2017-02-12 07:38] LABS: BUN/CREATININE RATIO 5.1 (10-20); CALCIUM 8.3 mg/dl (8.5-10.1); CREATININE 8.43 mg/dl (0.60-1.20); PHOSPHORUS 4.2 mg/dl (2.5-4.9); POTASSIUM 3.8 mmol/L (3.5-5.1)
[2017-02-12] MEDS: INCRUSE ELLIPTA~ORDER AWAITING ACTION SCH ×3 (07:51→16:00)
[2017-02-12] MEDS: DICYCLOMINE HCL 20 MG TAB PO SCH ×2 (07:52→13:41)
[2017-02-12] MEDS: LACTOBACILLUS ACIDOPHILUS (FLORANEX) TAB PO SCH (07:53)
[2017-02-12] MEDS: CLONIDINE HCL 0.1 MG TAB PO SCH ×2 (07:53→20:27)
[2017-02-12] MEDS: NEPHROCAPS PO SCH (07:53)
[2017-02-12] MEDS: CLOPIDOGREL BISULFATE 75 MG TAB PO SCH (07:53)
[2017-02-12] MEDS: LOSARTAN POTASSIUM 50 MG TAB PO SCH (07:54)
[2017-02-12] MEDS: CALCIUM ACETATE 667MG GELCAP PO SCH ×3 (07:55→16:13)
[2017-02-12] MEDS: DILTIAZEM HCL 120 MG CAPCR PO SCH (07:56)
[2017-02-12] MEDS: PANTOprazole SOD 40 MG TAB PO SCH ×2 (07:56→20:28)
[2017-02-12] MEDS: METOPROLOL TARTRATE 50 MG TAB PO SCH ×2 (07:56→20:28)
[2017-02-12] MEDS: PrednisoLONE ACET 1% OP SUSP 5 ML BTL OPL SCH (07:57)
[2017-02-12] MEDS: LIDODERM (LIDOCAINE) PATCH 5% TD SCH (07:57)
[2017-02-12] MEDS: INSULIN ASPART 100 UNITS/ML 3 ML PEN SC SCH ×4 (08:14→20:35)
[2017-02-12] MEDS: INSULIN GLARGINE SOLOSTAR 100 UNITS/ML 3 ML PEN SC SCH (08:15)
[2017-02-12] MEDS: FLUTICASONE/SALMETEROL 250/50 (ADVAIR) 14 PUFF/1 INHALER INH SCH ×2 (08:56→20:26)
[2017-02-12] MEDS ORDERED: EPOETIN ALFA 10,000 UNITS/ML VIAL IV. SCH (09:00)
[2017-02-12] MEDS: HEPARIN 25000 UNIT/ D5W 500 ML (PHARMACY PREPARED) IV PRN ×2 (09:17)
[2017-02-12] MEDS: ALBUMIN HUMAN 25% 12.5 GM/50 ML VIAL IV SCH ×2 (10:11→11:29)
--- NOTE | 2017-02-12 10:52 | PROGRESS NOTE ---
DATE: 02/12/2017 FOLLOWUP VISIT SUBJECTIVE: The patient is a 71-year-old with end-stage renal disease, on dialysis. She has been having paroxysmal atrial fibrillation and has been started on anticoagulation and rate control with diltiazem. She is having dialysis today. She is tolerating the dialysis in regard to blood pressure. She has no new complaints today. OBJECTIVE: GENERAL: She is alert and oriented, in no acute distress. VITAL SIGNS: Blood pressure 100/60, pulse is regular at 90 beats per minute. She is afebrile. HEENT: She is normocephalic. Pupils are equal and reactive to light. Extraocular muscles are intact bilaterally. NECK: The neck veins are flat. Carotids have good upstrokes bilaterally without bruits. Thyroid is nonpalpable. RESPIRATORY: Breath sounds equal bilaterally and clear to auscultation. GASTROINTESTINAL: Abdomen is soft, nontender without organomegaly. EXTREMITIES: She has a fistula in the left arm. NEUROLOGIC: Grossly intact. SKIN: Warm to touch. LYMPH NODES: Negative to palpation. IMPRESSION: 1. End-stage renal disease, on hemodialysis. 2. Paroxysmal atrial fibrillation. RECOMMENDATIONS: In listening to her today, she sounds like she is in a normal sinus rhythm. I would continue the current dose of diltiazem. She can be discharged per the nephrology service when she is ready.
--- NOTE | 2017-02-12 13:25 | Dialysis Progress Note ---
Nephrology Dialysis Note Date of Service: Feb 12, 2017. Subjective c/o ongoing back pain, discomfort w/ being in bed; remains on heparin gtt; no n/ v; no change in 02 needs Objective Date Time Temp Pulse Resp B/P (MAP) Pulse Ox O2 Delivery O2 Flow Rate FiO2 02/12/17 12:30 87 111/48 02/12/17 12:15 82 106/54 02/12/17 12:00 98 121/57 02/12/17 11:52 98 Nasal Cannula 3.0 02/12/17 11:45 100 112/55 02/12/17 11:30 89 119/54 02/12/17 11:15 89 119/54 02/12/17 11:00 90 112/48 02/12/17 10:45 94 102/43 02/12/17 10:30 86 101/46 02/12/17 10:15 84 119/58 02/12/17 10:05 96 120/52 02/12/17 09:53 36.4 106 94/43 (60) 02/12/17 08:20 36.9 94 19 90/55 (67) 97 Nasal Cannula 3.0 02/12/17 08:00 98 Nasal Cannula 3.0 02/12/17 07:06 96 16 96 Nasal Cannula 3.0 02/12/17 04:00 99 Nasal Cannula 3.0 02/12/17 03:21 37.5 81 21 110/64 (79) 97 Nasal Cannula 3.0 02/11/17 23:59 98 Nasal Cannula 3.0 02/11/17 23:36 36.8 85 18 114/60 (78) 99 Nasal Cannula 3.0 02/11/17 20:00 Nasal Cannula 3.0 Humidified Oxygen 02/11/17 19:46 36.7 94 20 109/55 (73) 97 Nasal Cannula 3.0 Humidified Oxygen 02/11/17 19:24 91 16 97 Nasal Cannula 3.0 02/11/17 16:00 Nasal Cannula 3.0 Humidified Oxygen 02/11/17 15:54 36.9 103 20 137/66 (89) 99 Nasal Cannula 3.0 Humidified Oxygen 02/11/17 15:08 36.6 81 106/42 (63) 02/11/17 14:00 96 108/52 02/11/17 13:45 90 106/56 02/11/17 13:30 85 100/50 Physical Exam: General-aaox3, nad on 2.5L NC Eyes-no scleral icterus ENT-mmm Neck-supple Lungs-diminished air entry ant exam Heart-irregular Abdomen-nontender Extremities-1+ edema Neuro-louie, fluent speech Current Inpatient Medications Medications (Trade) Dose Ordered Sig/Joan Route Start Time Stop Time Status Last Admin Dose Admin Acetaminophen (Tylenol Tab) 650 mg Q6 PRN PO 02/08/17 05:15 03/10/17 05:14 02/11/17 15:11 650 MG Albuterol (Ventolin Hfa Inhaler) 2 puffs Q4 PRN INH 02/08/17 05:15 03/10/17 05:14 Amlodipine Besylate (Norvasc Tab) 10 mg QAM PO 02/08/17 09:00 03/10/17 08:59 Future Hold 02/09/17 08:12 10 MG Calcium Acetate (Phoslo Cap) 1,334 mg TIDM PO 02/08/17 07:30 03/10/17 07:59 02/12/17 07:55 1,334 MG Clonidine HCl (Catapres Tab) 0.1 mg BID PO 02/08/17 09:00 03/10/17 08:59 02/12/17 07:53 0.1 MG Salmeterol Xinafoate/ Fluticasone (Advair Diskus 250/50 Inh) 1 puff BID INH 02/08/17 09:00 03/10/17 08:59 02/12/17 08:56 1 PUFF Furosemide (Lasix Tab) 40 mg DAILY PO 02/08/17 09:00 03/10/17 08:59 Future Hold Insulin Glargine (Lantus Solostar Pen) 26 units QAM SC 02/08/17 09:00 03/10/17 08:59 Future hold 02/12/17 08:15 26 UNITS Lactobacillus Acidophilus (Floranex Tab) 1 tab DAILY PO 02/08/17 09:00 03/10/17 08:59 02/12/17 07:53 1 TAB Losartan Potassium (coZAAR TAB) 100 mg DAILY PO 02/08/17 09:00 03/10/17 08:59 02/12/17 07:54 100 MG Prednisolone Acetate (Pred Forte 1% Oph Susp) 1 drops DAILY OPL 02/08/17 09:00 03/10/17 08:59 02/12/17 07:57 1 DROPS Vitamin B Complex/ Vit C/Folic Acid (Nephrocaps) 1 cap DAILY PO 02/08/17 09:00 03/10/17 08:59 02/12/17 07:53 1 CAP Miscellaneous Information (Order Awaiting Action) 1 ea QS N/A 02/08/17 08:00 03/10/17 07:59 Glucose (Glucose 40% Gel) 15-30 GRAMS 15 GRAMS... UD PRN PO 02/08/17 05:15 03/10/17 05:14 Glucose (Glucose Chew Tab) 4-8 Tablets 4 Tabl... UD PRN PO 02/08/17 05:15 03/10/17 05:14 Dextrose (Dextrose 50% 50ML Syringe) 25-50ML OF 50% DW IV FOR... UD PRN IV 02/08/17 05:15 03/10/17 05:14 02/08/17 20:19 25 ML Glucagon (Glucagon Inj) 1 mg UD PRN SQ 02/08/17 05:15 03/10/17 05:14 Albuterol/ Ipratropium (Duoneb) 3 ml QIDR INH 02/08/17 08:00 03/10/17 07:59 02/12/17 07:04 3 ML Valacyclovir HCl (Valtrex Tab) 1,000 mg DAILY PO 02/08/17 09:00 03/10/17 08:59 02/12/17 07:54 1,000 MG Insulin Aspart (novoLOG ASPART) SLIDING SCALE If C... ACHS SC 02/08/17 07:00 03/10/17 06:59 02/12/17 08:14 2 UNITS Heparin Sodium (Porcine) 26672 unit/Dextrose 500 ml @ 30 mls/hr [id number] PRN IV 02/08/17 14:30 03/10/17 14:29 02/12/17 09:17 30 MLS/HR Clopidogrel Bisulfate (plAVix TAB) 75 mg QAM PO 02/09/17 09:00 03/11/17 08:59 02/12/17 07:53 75 MG Metoprolol Tartrate (Lopressor Tab) 50 mg BID PO 02/09/17 09:00 03/11/17 08:59 02/12/17 07:56 50 MG Nitroglycerin (Nitroglycerin 2% Oint) 1 inch Q6 EXT 02/09/17 06:00 03/11/17 05:59 02/12/17 06:33 1 INCH Lidocaine (Lidoderm Patch 5%) 1 patch QAM TD 02/10/17 09:00 03/12/17 08:59 02/12/17 07:57 1 PATCH Miscellaneous (Remove Lidoderm Patch) 1 ea DAILY@21 N/A 02/09/17 21:00 03/11/17 20:59 02/10/17 20:39 1 EA Vancomycin HCl (Consult) 1 ea UD PRN N/A 02/10/17 05:45 03/12/17 05:44 Oxycodone HCl (Roxicodone Immediate Rel Tab) 5 mg Q6H PRN PO 02/10/17 12:00 02/24/17 11:59 02/11/17 20:30 5 MG Dicyclomine HCl (Bentyl Tab) 20 mg TIDM PO 02/10/17 12:00 03/12/17 11:59 02/12/17 07:52 20 MG Diltiazem HCl (Cardizem Cd Cap) 120 mg QAM PO 02/11/17 09:00 03/13/17 08:59 02/12/17 07:56 120 MG Pantoprazole Sodium (Protonix Tab) 40 mg BID PO 02/12/17 09:00 03/14/17 08:59 02/12/17 07:56 40 MG Epoetin Hakan (Procrit Inj) 10,000 units 0900 IV. 02/12/17 09:00 02/12/17 16:00 02/12/17 11:52 10,000 UNITS Albumin Human (Albumin 25%) 25 gm 0800 IV 02/12/17 08:00 02/12/17 16:00 02/12/17 11:29 25 GM Lidocaine/ Prilocaine (Emla 2.5% Crm) 1 ea UD PRN EXT 02/11/17 20:15 03/13/17 20:14 Warfarin Sodium (Coumadin Tab) 10 mg DAILY@16 PO 02/12/17 16:00 03/14/17 15:59 Last 24 Hours Test 02/11/17 14:43 02/11/17 20:13 02/12/17 06:15 02/12/17 06:38 Bedside Glucose 127 mg/dl 193 mg/dl 109 mg/dl Prothrombin Time 18.1 SECONDS Prothromb Time International Ratio 1.7 Activated Partial Thromboplast Time 57.0 SECONDS Partial Thromboplastin Ratio 2.2 Sodium Level 135 mmol/L Potassium Level 3.8 mmol/L Chloride Level 97 mmol/L Carbon Dioxide Level 28 mmol/L Anion Gap 10.0 mmol/L Blood Urea Nitrogen 43 mg/dl Creatinine 8.43 mg/dl Est Creatinine Clear Calc Drug Dose 7.7 ml/min Estimated GFR () 5.1 Estimated GFR (Non- 4.4 BUN/Creatinine Ratio 5.1 Random Glucose 107 mg/dl Calcium Level 8.3 mg/dl Phosphorus Level 4.2 mg/dl Magnesium Level 2.0 mg/dl Random Vancomycin Level 25.3 mcg/ml Assessment & Plan 71 yo female with esrd with paroxysmal afib who presented with worsening ruq pain and underwent thorough workup from pulmonary, vascular surgery, cardiology , GI. pt currently looks better. complaining of ongoing low back pain; however the ruq pain is better today. ESRD-had HD yesterday and again today; today on 3K bath; plan next tx 02/14 as inpt or outpt assuming clinically stable <<>>trying as appropriate to tolerate outpt schedule (including for holiday) Anemia of Renal Failure-hg levels are trending down, may be dilutional. today had more procrit.
[2017-02-12] MEDS ORDERED: DIAZEPAM 5MG TAB PO ONE (15:15)
[2017-02-12] MEDS ORDERED: DIAZEPAM 5MG TAB PO PRN (15:15)
[2017-02-12] MEDS ORDERED: ALBUT/IPRATROP 3MG/0.5MG NEB 3 ML VIAL INH PRN (16:00)
[2017-02-12] MEDS: WARFARIN SOD 10 MG TAB PO SCH (16:12)
--- NOTE | 2017-02-12 17:23 | Progress Note ---
Medicine Progress Note Date & Time of Visit: Feb 12, 2017 at 15:03. Subjective 71 yo F presented with SOB and subsequently developed fever with lower back pain and persistent RUQ pain. She was placed on Vancomycin empirically with resolution of her fever and clinical improvement. Blood cultures were negative and pt is clinically improved so Vanc being stopped. She just returned from HD and although feels run down is at baseline hypoxia without worsening SOB. She states that her RUQ pain is totally resolved, she has been afebrile overnight, and the heating pad has worked somewhat for her gluteal spasms. -feeling well -tolerating PO -still having back/gluteal pain with improvement with heating pad overnight -no SOB/breathing at baseline. Objective Last 8 Hrs Date Time Temp Pulse Resp B/P (MAP) Pulse Ox O2 Delivery O2 Flow Rate FiO2 02/12/17 15:01 96 Nasal Cannula 3.0 02/12/17 13:30 36.5 87 111/46 (67) 02/12/17 12:45 86 118/45 02/12/17 12:30 87 111/48 02/12/17 12:15 82 106/54 02/12/17 12:00 98 121/57 02/12/17 11:52 98 Nasal Cannula 3.0 02/12/17 11:45 100 112/55 02/12/17 11:30 89 119/54 02/12/17 11:15 89 119/54 02/12/17 11:00 90 112/48 02/12/17 10:45 94 102/43 02/12/17 10:30 86 101/46 02/12/17 10:15 84 119/58 02/12/17 10:05 96 120/52 02/12/17 09:53 36.4 106 94/43 (60) 02/12/17 08:20 36.9 94 19 90/55 (67) 97 Nasal Cannula 3.0 02/12/17 08:00 98 Nasal Cannula 3.0 02/12/17 07:06 96 16 96 Nasal Cannula 3.0 Physical Exam: GEN: obese, NAD, Alert and appropriate. HEENT: NC/AT, normal sclerae, MMM CARDIO: reg rate, S1/2 heard without m/g/r LUNGS: CTA bilaterally, no crackles, rales or wheezing ABD: soft, obese, non-tender, non-distended, +BS EXTREMITY: RP and DP palpable 2+ bilat, no LE swelling or edema, extremities are warm and well-perfused NEURO: CN 2-12 grossly intact, sensation intact throughout, no gross focal deficit. MUSC: 5/5 strength throughout, no focal deficits, generalized weakness noted. SKIN: warm and dry Laboratory Results: 02/11/17 05:09 02/12/17 06:15 Test 02/08/17 02:12 02/08/17 02:19 02/08/17 02:21 02/08/17 06:50 Polychromasia 1+ Ovalocytes 1+ Bedside Lactic Acid Venous 0.93 mmol/L (0.90-1.70) Bedside Troponin I < 0.030 ng/ml (0-0.045) Pro-B-Type Natriuretic Peptide 82286 pg/ml (0-900) Test 02/08/17 11:50 02/09/17 04:18 02/09/17 10:27 02/10/17 04:31 Blood Gas Sample Site R Radial Bedside Blood Gas pH (LAB) 7.48 (7.35-7.45) Bedside Blood Gas pCO2 (LAB) 34 mmHg (35-46) Bedside Blood Gas pO2 (LAB) 56 mmHg (80-95) Bedside Blood Gas HCO3 (LAB) 25 meq/L (19-24) Bedside Blood Gas Total CO2 26 mEq/l (24-31) Bedside Blood Gas Base Excess (LAB) 1.0 meq/L (-9-1.8) Bedside Blood Gas O2 Saturation 91.0 % (90-95) Dar Test Pass Oxygen Delivery Device Cannula Triglycerides Level 89 mg/dl (0-150) Cholesterol Level 87 mg/dl (0-200) HDL Cholesterol 36 mg/dl LDL Cholesterol, Calculated 33 mg/dl VLDL Cholesterol, Calculated 18 mg/dl Cholesterol/HDL Ratio 2.4 Direct Bilirubin 0.3 mg/dl (0-0.2) Lipase 54 U/L (73-393) Immature Granulocyte % (Auto) 0.3 % White Blood Count 6.75 K/uL (4.8-10.8) Red Blood Count 2.60 M/uL (4.2-5.4) Hemoglobin 9.0 g/dL (12.0-16.0) Hematocrit 28.9 % (37-47) Mean Corpuscular Volume 111.2 fL (80-100) Mean Corpuscular Hemoglobin 34.6 pg (25-34) Mean Corpuscular Hemoglobin Concent 31.1 g/dl (32-36) Platelet Count 133 K/uL (130-400) Mean Platelet Volume 11.1 fL (7.4-10.4) Neutrophils (%) (Auto) 76.1 % Lymphocytes (%) (Auto) 10.7 % Monocytes (%) (Auto) 12.3 % Eosinophils (%) (Auto) 0.3 % Basophils (%) (Auto) 0.3 % Neutrophils # (Auto) 5.14 K/uL (1.4-6.5) Lymphocytes # (Auto) 0.72 K/uL (1.2-3.4) Monocytes # (Auto) 0.83 K/uL (0.11-0.59) Eosinophils # (Auto) 0.02 K/uL (0-0.5) Basophils # (Auto) 0.02 K/uL (0-0.2) Immature Granulocyte # (Auto) 0.02 K/uL (0.00-0.02) Hypersegmented Polys 1+ Macrocytosis PRESENT Total Creatine Kinase 521 U/L (26-192) Creatine Kinase MB 2.4 ng/ml (0.5-3.6) Creatine Kinase MB Ratio 0.5 (0-3.0) Troponin I 0.231 ng/ml (0-0.045) Procalcitonin 2.80 ng/ml (0-0.5) Test 02/11/17 05:09 02/12/17 06:15 02/12/17 16:28 Red Blood Count 2.51 M/uL (4.2-5.4) Mean Corpuscular Volume 108.8 fL (80-100) Mean Corpuscular Hemoglobin 34.7 pg (25-34) Mean Corpuscular Hemoglobin Concent 31.9 g/dl (32-36) RDW Standard Deviation 65.9 fL (36.4-46.3) RDW Coefficient of Variation 16.5 % (11.5-14.5) Mean Platelet Volume 9.9 fL (7.4-10.4) Lactic Acid Level 1.5 mmol/L (0.4-2.0) Total Bilirubin 0.8 mg/dl (0.2-1) Aspartate Amino Transf (AST/SGOT) 21 U/L (15-37) Alanine Aminotransferase (ALT/SGPT) 35 U/L (12-78) Alkaline Phosphatase 73 U/L (45-117) Total Protein 6.1 gm/dl (6.4-8.2) Albumin 3.2 gm/dl (3.4-5.0) Globulin 2.9 gm/dl (2.5-4.0) Albumin/Globulin Ratio 1.1 (0.9-2) Prothrombin Time 18.1 SECONDS (9.0-12.0) Prothromb Time International Ratio 1.7 (0.9-1.1) Activated Partial Thromboplast Time 57.0 SECONDS (21.0-31.0) Partial Thromboplastin Ratio 2.2 Anion Gap 10.0 mmol/L (3-11) Est Creatinine Clear Calc Drug Dose 7.7 ml/min Estimated GFR () 5.1 Estimated GFR (Non- 4.4 BUN/Creatinine Ratio 5.1 (10-20) Calcium Level 8.3 mg/dl (8.5-10.1) Phosphorus Level 4.2 mg/dl (2.5-4.9) Magnesium Level 2.0 mg/dl (1.8-2.4) Random Vancomycin Level 25.3 mcg/ml Bedside Glucose 131 mg/dl (70-90) Date/Time Source Procedure Growth Status 02/10/17 04:36 Blood Blood Culture - Preliminary NO GROWTH TO DATE. Resulted 02/08/17 06:00 Nasal MRSA DNA Surveillance Screen - Final Specimen Negative for MRSA by DNA Probe Complete Last 24 Hours Test 02/11/17 20:13 02/12/17 06:15 02/12/17 06:38 Bedside Glucose 193 mg/dl 109 mg/dl Prothrombin Time 18.1 SECONDS Prothromb Time International Ratio 1.7 Activated Partial Thromboplast Time 57.0 SECONDS Partial Thromboplastin Ratio 2.2 Sodium Level 135 mmol/L Potassium Level 3.8 mmol/L Chloride Level 97 mmol/L Carbon Dioxide Level 28 mmol/L Anion Gap 10.0 mmol/L Blood Urea Nitrogen 43 mg/dl Creatinine 8.43 mg/dl Est Creatinine Clear Calc Drug Dose 7.7 ml/min Estimated GFR () 5.1 Estimated GFR (Non- 4.4 BUN/Creatinine Ratio 5.1 Random Glucose 107 mg/dl Calcium Level 8.3 mg/dl Phosphorus Level 4.2 mg/dl Magnesium Level 2.0 mg/dl Random Vancomycin Level 25.3 mcg/ml Assessment & Plan 71 yo F presented with SOB and subsequently developed fever with lower back pain and persistent RUQ pain. She was placed on Vancomycin empirically with resolution of her fever and clinical improvement. Blood cultures were negative and pt is clinically improved so Vanc being stopped. She just returned from HD and although feels run down is at baseline hypoxia without worsening SOB. She states that her RUQ pain is totally resolved, she has been afebrile overnight, and the heating pad has worked somewhat for her gluteal spasms. 1. RUQ pain-etiologies considered and ruled out include PE, aortic dissection and acute RI. There was no rib pathology in this area on CT scan. Lipase was normal on admission, she is tolerating PO and pain is not epigastric. A CTA was performed revealing multiple areas of mesenteric stenosis and renal artery stenosis. Vascular was consulted but did not feel this was contributing to her current pain and opted against any surgical intervention at this time. Lactate was negative. GI was consulted and agrees the pain is idiopathic at this point , and has her on supportive care with PPI. Back pain and fever prompted evaluation of Lower back with L spine MRI-spinal stenosis was seen but no evidence of infection was present. With history of this pain in the past with fluid shifts, this intermittent abdominal pain is most consistent with chronic mesenteric ischemia. -abdominal pain has been resolved since yesterday. Stopping Bentyl and discontinuing Norvasc which has been held in setting of low BP. 2. Acute lower back/gluteal/piriformis pain-began during this hospitalization, moving better today. PT/OT was ordered. MRI revealed spinal stenosis; pt agrees that she feels better flexing forward at the hips. Pain likely related to MSK pain and reproducible over the musculature and although no overt neurologic deficits, movement ability is improving. Heating pad helped overnight, giving some valium for muscle relaxation today. 3. Acute on chronic diastolic heart failure-compensated at this point with breathing at baseline on 2.5L O2 via NC. Noted that patient has worsening mitral valve disease on recent echocardiogram and current hypoxia is thought secondary to fluid overload as opposed to COPD as recent PFTs were relatively normal. Cont fluid management with HD as needed for persistent bilateral pleural effusions. She is ready for discharge within the next 1-2 days. Awaiting PT/OT assessments 4. Chronic hypoxic respiratory failure 2/2 COPD-no wheezing on exam, appears stable. Cont Advair and Duonebs in addition to home oxygen supplementation. Encourage to quit smoking. 5. Elevated troponin-no new focal wall motion abnormalities. Valvular disease and ESRD present. No chest pain. 6. Atrial fibrillation with RVR-diltiazem drip, metoprolol, heparin drip as bridge to warfarin while admitted. Warfarin increased to 10mg PO daily today. 7. ESRD-cont HD while inpatient. Approx 2L ultrafiltrate removed daily 8. HTN-controlled, cont metoprolol, amlodipine, losartan and clonidine. 9. DMII-controlled at home. Sugar was slightly lower today. Will back down on Lantus to 20 Units qam. 10. Anemia-stable related to chronic disease. VTE PROPHYLAXIS: heparin drip and warfarin DISPOSITION-awaiting PT/OT but is medically optimized at this point. Likely Tuesday. Laverne Simpson DO [facility] Hospitalist Consultants: Nephrology Cardiology Pulmonary GI . Current Inpatient Medications: Current Inpatient Medications Medications (Trade) Dose Ordered Sig/Joan Route Start Time Stop Time Status Last Admin Dose Admin Acetaminophen (Tylenol Tab) 650 mg Q6 PRN PO 02/08/17 05:15 03/10/17 05:14 02/11/17 15:11 650 MG Albuterol (Ventolin Hfa Inhaler) 2 puffs Q4 PRN INH 02/08/17 05:15 03/10/17 05:14 Calcium Acetate (Phoslo Cap) 1,334 mg TIDM PO 02/08/17 07:30 03/10/17 07:59 02/12/17 13:41 1,334 MG Clonidine HCl (Catapres Tab) 0.1 mg BID PO 02/08/17 09:00 03/10/17 08:59 02/12/17 07:53 0.1 MG Salmeterol Xinafoate/ Fluticasone (Advair Diskus 250/50 Inh) 1 puff BID INH 02/08/17 09:00 03/10/17 08:59 02/12/17 08:56 1 PUFF Furosemide (Lasix Tab) 40 mg DAILY PO 02/08/17 09:00 03/10/17 08:59 Future hold Insulin Glargine (Lantus Solostar Pen) 26 units QAM SC 02/08/17 09:00 03/10/17 08:59 Future hold 02/12/17 08:15 26 UNITS Lactobacillus Acidophilus (Floranex Tab) 1 tab DAILY PO 02/08/17 09:00 03/10/17 08:59 02/12/17 07:53 1 TAB Losartan Potassium (coZAAR TAB) 100 mg DAILY PO 02/08/17 09:00 03/10/17 08:59 02/12/17 07:54 100 MG Prednisolone Acetate (Pred Forte 1% Oph Susp) 1 drops DAILY OPL 02/08/17 09:00 03/10/17 08:59 02/12/17 07:57 1 DROPS Vitamin B Complex/ Vit C/Folic Acid (Nephrocaps) 1 cap DAILY PO 02/08/17 09:00 03/10/17 08:59 02/12/17 07:53 1 CAP Miscellaneous Information (Order Awaiting Action) 1 ea QS N/A 02/08/17 08:00 03/10/17 07:59 Glucose (Glucose 40% Gel) 15-30 GRAMS 15 GRAMS... UD PRN PO 02/08/17 05:15 03/10/17 05:14 Glucose (Glucose Chew Tab) 4-8 Tablets 4 Tabl... UD PRN PO 02/08/17 05:15 03/10/17 05:14 Dextrose (Dextrose 50% 50ML Syringe) 25-50ML OF 50% DW IV FOR... UD PRN IV 02/08/17 05:15 03/10/17 05:14 02/08/17 20:19 25 ML Glucagon (Glucagon Inj) 1 mg UD PRN SQ 02/08/17 05:15 03/10/17 05:14 Valacyclovir HCl (Valtrex Tab) 1,000 mg DAILY PO 02/08/17 09:00 03/10/17 08:59 02/12/17 07:54 1,000 MG Insulin Aspart (novoLOG ASPART) SLIDING SCALE If C... ACHS SC 02/08/17 07:00 03/10/17 06:59 02/12/17 08:14 2 UNITS Heparin Sodium (Porcine) 35988 unit/Dextrose 500 ml @ 30 mls/hr [id number] PRN IV 02/08/17 14:30 03/10/17 14:29 02/12/17 09:17 30 MLS/HR Clopidogrel Bisulfate (plAVix TAB) 75 mg QAM PO 02/09/17 09:00 03/11/17 08:59 02/12/17 07:53 75 MG Metoprolol Tartrate (Lopressor Tab) 50 mg BID PO 02/09/17 09:00 03/11/17 08:59 02/12/17 07:56 50 MG Nitroglycerin (Nitroglycerin 2% Oint) 1 inch Q6 EXT 02/09/17 06:00 03/11/17 05:59 02/12/17 13:41 1 INCH Lidocaine (Lidoderm Patch 5%) 1 patch QAM TD 02/10/17 09:00 03/12/17 08:59 02/12/17 07:57 1 PATCH Miscellaneous (Remove Lidoderm Patch) 1 ea DAILY@21 N/A 02/09/17 21:00 03/11/17 20:59 02/10/17 20:39 1 EA Oxycodone HCl (Roxicodone Immediate Rel Tab) 5 mg Q6H PRN PO 02/10/17 12:00 02/24/17 11:59 02/11/17 20:30 5 MG Diltiazem HCl (Cardizem Cd Cap) 120 mg QAM PO 02/11/17 09:00 03/13/17 08:59 02/12/17 07:56 120 MG Pantoprazole Sodium (Protonix Tab) 40 mg BID PO 02/12/17 09:00 03/14/17 08:59 02/12/17 07:56 40 MG Epoetin Hakan (Procrit Inj) 10,000 units 0900 IV. 02/12/17 09:00 02/12/17 16:00 02/12/17 11:52 10,000 UNITS Albumin Human (Albumin 25%) 25 gm 0800 IV 02/12/17 08:00 02/12/17 16:00 02/12/17 11:29 25 GM Lidocaine/ Prilocaine (Emla 2.5% Crm) 1 ea UD PRN EXT 02/11/17 20:15 03/13/17 20:14 Warfarin Sodium (Coumadin Tab) 10 mg DAILY@16 PO 02/12/17 16:00 03/14/17 15:59 Albuterol/ Ipratropium (Duoneb) 3 ml QIDR PRN INH 02/12/17 16:00 03/10/17 07:59 UNV Diazepam (Valium Tab) 5 mg NOW ONCE PO 02/12/17 15:15 02/12/17 15:16 UNV Diazepam (Valium Tab) 5 mg HS PRN PO 02/12/17 15:15 03/14/17 15:14 UNV
[2017-02-13] VITALS (12 sets, daily range): BP systolic 97–133; BP diastolic 58–76; PULSE 73–92; TEMP 36.8–37.4; O2SAT 93–99
[2017-02-13] MEDS: NITROGLYCERIN OINT 2% 1GM PACKET EXT SCH ×5 (01:56→23:34)
[2017-02-13] MEDS: HEPARIN 25000 UNIT/ D5W 500 ML (PHARMACY PREPARED) IV PRN ×4 (01:57→19:48)
[2017-02-13 07:17] LABS: INR 1.7 (0.9-1.1); PROTHROMBIN TIME (PATIENT) 18.1 SECONDS (9.0-12.0)
[2017-02-13 07:50] LABS: BUN/CREATININE RATIO 4.3 (10-20); CALCIUM 8.2 mg/dl (8.5-10.1); POTASSIUM 3.5 mmol/L (3.5-5.1)
[2017-02-13] MEDS: CALCIUM ACETATE 667MG GELCAP PO SCH ×3 (07:52→15:51)
[2017-02-13] MEDS: INSULIN ASPART 100 UNITS/ML 3 ML PEN SC SCH ×4 (07:54→20:43)
[2017-02-13] MEDS: INCRUSE ELLIPTA~ORDER AWAITING ACTION SCH ×4 (07:55→23:34)
[2017-02-13] MEDS: LOSARTAN POTASSIUM 50 MG TAB PO SCH (09:03)
[2017-02-13] MEDS: CLONIDINE HCL 0.1 MG TAB PO SCH ×2 (09:03→20:45)
[2017-02-13] MEDS: NEPHROCAPS PO SCH (09:03)
[2017-02-13] MEDS: PANTOprazole SOD 40 MG TAB PO SCH ×2 (09:03→20:46)
[2017-02-13] MEDS: METOPROLOL TARTRATE 50 MG TAB PO SCH ×2 (09:03→20:46)
[2017-02-13] MEDS: LACTOBACILLUS ACIDOPHILUS (FLORANEX) TAB PO SCH (09:04)
[2017-02-13] MEDS: LIDODERM (LIDOCAINE) PATCH 5% TD SCH (09:04)
[2017-02-13] MEDS: PrednisoLONE ACET 1% OP SUSP 5 ML BTL OPL SCH (09:05)
[2017-02-13] MEDS: DILTIAZEM HCL 120 MG CAPCR PO SCH (09:05)
[2017-02-13] MEDS: CLOPIDOGREL BISULFATE 75 MG TAB PO SCH (09:05)
[2017-02-13] MEDS: INSULIN GLARGINE SOLOSTAR 100 UNITS/ML 3 ML PEN SC SCH (09:10)
[2017-02-13] MEDS: FLUTICASONE/SALMETEROL 250/50 (ADVAIR) 14 PUFF/1 INHALER INH SCH ×2 (09:11→20:45)
[2017-02-13 09:35] LABS: PARTIAL THROMBOPLASTIN RATIO 2.3
[2017-02-13] MEDS: FUROSEMIDE 40 MG TAB PO SCH (12:35)
[2017-02-13] MEDS: WARFARIN SOD 10 MG TAB PO SCH (15:51)
--- NOTE | 2017-02-13 16:41 | Progress Note ---
Medicine Progress Note Date & Time of Visit: Feb 13, 2017 at 14:38. Subjective 71 yo F presented with SOB and subsequently developed fever with lower back pain and persistent RUQ pain. She was placed on Vancomycin empirically with resolution of her fever and clinical improvement. Blood cultures were negative and pt is clinically improved so Vanc stopped with no decompensation. She continues to deny any RUQ pain for three days now, her gluteal pain is not improved with the valium but is improving slowly--she thinks the pain is from her bed. We discussed adding an EHOB mattress to try something different. Sh eis tolerating PO without issue. There was no HD today but she will go on off days this week--including Tue and Tue--because of the holiday. Her daughter was present at bedside and all plan was described to her with all questions answered. Objective Last 8 Hrs Date Time Temp Pulse Resp B/P (MAP) Pulse Ox O2 Delivery O2 Flow Rate FiO2 02/13/17 12:39 97 Nasal Cannula 3.0 02/13/17 11:28 36.8 77 18 110/66 (81) 98 2.0 02/13/17 08:33 97 Nasal Cannula 3.0 02/13/17 08:10 36.9 82 18 97/58 (71) 98 2.0 Physical Exam: GEN: obese, NAD, Alert and appropriate. HEENT: NC/AT, normal sclerae, MMM CARDIO: reg rate, S1/2 heard without m/g/r LUNGS: CTA bilaterally, no crackles, rales or wheezing ABD: soft, obese, non-tender, non-distended, +BS EXTREMITY: RP and DP palpable 2+ bilat, no LE swelling or edema, extremities are warm and well-perfused NEURO: CN 2-12 grossly intact, sensation intact throughout, no gross focal deficit. MUSC: 5/5 strength throughout, no focal deficits, generalized weakness noted. SKIN: warm and dry Laboratory Results: 02/11/17 05:09 02/13/17 06:17 Test 02/08/17 02:12 02/08/17 02:19 02/08/17 02:21 02/08/17 06:50 Polychromasia 1+ Ovalocytes 1+ Bedside Lactic Acid Venous 0.93 mmol/L (0.90-1.70) Bedside Troponin I < 0.030 ng/ml (0-0.045) Pro-B-Type Natriuretic Peptide 19594 pg/ml (0-900) Test 02/08/17 11:50 02/09/17 04:18 02/09/17 10:27 02/10/17 04:31 Blood Gas Sample Site R Radial Bedside Blood Gas pH (LAB) 7.48 (7.35-7.45) Bedside Blood Gas pCO2 (LAB) 34 mmHg (35-46) Bedside Blood Gas pO2 (LAB) 56 mmHg (80-95) Bedside Blood Gas HCO3 (LAB) 25 meq/L (19-24) Bedside Blood Gas Total CO2 26 mEq/l (24-31) Bedside Blood Gas Base Excess (LAB) 1.0 meq/L (-9-1.8) Bedside Blood Gas O2 Saturation 91.0 % (90-95) Dar Test Pass Oxygen Delivery Device Cannula Triglycerides Level 89 mg/dl (0-150) Cholesterol Level 87 mg/dl (0-200) HDL Cholesterol 36 mg/dl LDL Cholesterol, Calculated 33 mg/dl VLDL Cholesterol, Calculated 18 mg/dl Cholesterol/HDL Ratio 2.4 Direct Bilirubin 0.3 mg/dl (0-0.2) Lipase 54 U/L (73-393) Immature Granulocyte % (Auto) 0.3 % White Blood Count 6.75 K/uL (4.8-10.8) Red Blood Count 2.60 M/uL (4.2-5.4) Hemoglobin 9.0 g/dL (12.0-16.0) Hematocrit 28.9 % (37-47) Mean Corpuscular Volume 111.2 fL (80-100) Mean Corpuscular Hemoglobin 34.6 pg (25-34) Mean Corpuscular Hemoglobin Concent 31.1 g/dl (32-36) Platelet Count 133 K/uL (130-400) Mean Platelet Volume 11.1 fL (7.4-10.4) Neutrophils (%) (Auto) 76.1 % Lymphocytes (%) (Auto) 10.7 % Monocytes (%) (Auto) 12.3 % Eosinophils (%) (Auto) 0.3 % Basophils (%) (Auto) 0.3 % Neutrophils # (Auto) 5.14 K/uL (1.4-6.5) Lymphocytes # (Auto) 0.72 K/uL (1.2-3.4) Monocytes # (Auto) 0.83 K/uL (0.11-0.59) Eosinophils # (Auto) 0.02 K/uL (0-0.5) Basophils # (Auto) 0.02 K/uL (0-0.2) Immature Granulocyte # (Auto) 0.02 K/uL (0.00-0.02) Hypersegmented Polys 1+ Macrocytosis PRESENT Total Creatine Kinase 521 U/L (26-192) Creatine Kinase MB 2.4 ng/ml (0.5-3.6) Creatine Kinase MB Ratio 0.5 (0-3.0) Troponin I 0.231 ng/ml (0-0.045) Procalcitonin 2.80 ng/ml (0-0.5) Test 02/11/17 05:09 02/12/17 06:15 02/13/17 06:14 02/13/17 06:17 Red Blood Count 2.51 M/uL (4.2-5.4) Mean Corpuscular Volume 108.8 fL (80-100) Mean Corpuscular Hemoglobin 34.7 pg (25-34) Mean Corpuscular Hemoglobin Concent 31.9 g/dl (32-36) RDW Standard Deviation 65.9 fL (36.4-46.3) RDW Coefficient of Variation 16.5 % (11.5-14.5) Mean Platelet Volume 9.9 fL (7.4-10.4) Lactic Acid Level 1.5 mmol/L (0.4-2.0) Total Bilirubin 0.8 mg/dl (0.2-1) Aspartate Amino Transf (AST/SGOT) 21 U/L (15-37) Alanine Aminotransferase (ALT/SGPT) 35 U/L (12-78) Alkaline Phosphatase 73 U/L (45-117) Total Protein 6.1 gm/dl (6.4-8.2) Albumin 3.2 gm/dl (3.4-5.0) Globulin 2.9 gm/dl (2.5-4.0) Albumin/Globulin Ratio 1.1 (0.9-2) Phosphorus Level 4.2 mg/dl (2.5-4.9) Magnesium Level 2.0 mg/dl (1.8-2.4) Random Vancomycin Level 25.3 mcg/ml Bedside Glucose 133 mg/dl (70-90) Prothrombin Time 18.1 SECONDS (9.0-12.0) Prothromb Time International Ratio 1.7 (0.9-1.1) Activated Partial Thromboplast Time 58.5 SECONDS (21.0-31.0) Partial Thromboplastin Ratio 2.3 Anion Gap 10.0 mmol/L (3-11) Est Creatinine Clear Calc Drug Dose 9.1 ml/min Estimated GFR () 6.3 Estimated GFR (Non- 5.5 BUN/Creatinine Ratio 4.3 (10-20) Calcium Level 8.2 mg/dl (8.5-10.1) Date/Time Source Procedure Growth Status 02/10/17 04:36 Blood Blood Culture - Preliminary NO GROWTH TO DATE. Resulted 02/08/17 06:00 Nasal MRSA DNA Surveillance Screen - Final Specimen Negative for MRSA by DNA Probe Complete Last 24 Hours Test 02/12/17 16:28 02/12/17 20:19 02/13/17 06:14 02/13/17 06:17 Bedside Glucose 131 mg/dl 100 mg/dl 133 mg/dl Prothrombin Time 18.1 SECONDS Prothromb Time International Ratio 1.7 Activated Partial Thromboplast Time 58.5 SECONDS Partial Thromboplastin Ratio 2.3 Sodium Level 137 mmol/L Potassium Level 3.5 mmol/L Chloride Level 98 mmol/L Carbon Dioxide Level 29 mmol/L Anion Gap 10.0 mmol/L Blood Urea Nitrogen 31 mg/dl Creatinine 7.00 mg/dl Est Creatinine Clear Calc Drug Dose 9.1 ml/min Estimated GFR () 6.3 Estimated GFR (Non- 5.5 BUN/Creatinine Ratio 4.3 Random Glucose 120 mg/dl Calcium Level 8.2 mg/dl Assessment & Plan 71 yo F presented with SOB and subsequently developed fever with lower back pain and persistent RUQ pain. She was placed on Vancomycin empirically with resolution of her fever and clinical improvement. Blood cultures were negative and pt is clinically improved so Vanc stopped with no decompensation. She continues to deny any RUQ pain for three days now, her gluteal pain is not improved with the valium but is improving slowly--she thinks the pain is from her bed. We discussed adding an EHOB mattress to try something different. Sh eis tolerating PO without issue. There was no HD today but she will go on off days this week--including Tue and Tue--because of the holiday. Her daughter was present at bedside and all plan was described to her with all questions answered. 1. RUQ pain--resolved. 2. Acute lower back/gluteal/piriformis pain-MSK etiology, not improved with valium. Will try mattress topper. Cont PT/OT 3. Acute on chronic diastolic heart failure-compensated at this point with breathing at baseline on 2.5L O2 via NC. Noted that patient has worsening mitral valve disease on recent echocardiogram and current hypoxia is thought secondary to fluid overload as opposed to COPD as recent PFTs were relatively normal. Cont fluid management with HD as needed for persistent bilateral pleural effusions. She is ready for discharge within the next 1-2 days. Awaiting PT/OT assessments 4. Chronic hypoxic respiratory failure 2/2 COPD-no wheezing on exam, appears stable. Cont Advair and Duonebs in addition to home oxygen supplementation. Encourage to quit smoking. 5. Elevated troponin-no new focal wall motion abnormalities. Valvular disease and ESRD present. No chest pain. 6. Atrial fibrillation --cont metoprolol and cardizem, heparin drip as bridge to warfarin while admitted. Warfarin increased to 10mg PO daily on 02/12. INR still subtherapeutic. Monitor daily. 7. ESRD-cont HD while inpatient. Approx 2L ultrafiltrate removed per session. 8. HTN-controlled, cont metoprolol, amlodipine, losartan and clonidine. 9. DMII-blood sugar is more controlled on the slightly lower dose of Lantus 10. Anemia-stable related to chronic disease. VTE PROPHYLAXIS: heparin drip and warfarin DISPOSITION-awaiting PT/OT but is medically optimized at this point. Likely Tuesday. Laverne Simpson DO [facility] Hospitalist Consultants: Nephrology Cardiology Pulmonary GI . Current Inpatient Medications: Current Inpatient Medications Medications (Trade) Dose Ordered Sig/Joan Route Start Time Stop Time Status Last Admin Dose Admin Acetaminophen (Tylenol Tab) 650 mg Q6 PRN PO 02/08/17 05:15 03/10/17 05:14 02/11/17 15:11 650 MG Albuterol (Ventolin Hfa Inhaler) 2 puffs Q4 PRN INH 02/08/17 05:15 03/10/17 05:14 Calcium Acetate (Phoslo Cap) 1,334 mg TIDM PO 02/08/17 07:30 03/10/17 07:59 02/13/17 11:20 1,334 MG Clonidine HCl (Catapres Tab) 0.1 mg BID PO 02/08/17 09:00 03/10/17 08:59 02/13/17 09:03 0.1 MG Salmeterol Xinafoate/ Fluticasone (Advair Diskus 250/50 Inh) 1 puff BID INH 02/08/17 09:00 03/10/17 08:59 02/13/17 09:11 1 PUFF Furosemide (Lasix Tab) 40 mg DAILY PO 02/08/17 09:00 03/10/17 08:59 Future hold 02/13/17 12:35 40 MG Insulin Glargine (Lantus Solostar Pen) 26 units QAM SC 02/08/17 09:00 03/10/17 08:59 Future hold 02/13/17 09:10 26 UNITS Lactobacillus Acidophilus (Floranex Tab) 1 tab DAILY PO 02/08/17 09:00 03/10/17 08:59 02/13/17 09:04 1 TAB Losartan Potassium (coZAAR TAB) 100 mg DAILY PO 02/08/17 09:00 03/10/17 08:59 02/13/17 09:03 100 MG Prednisolone Acetate (Pred Forte 1% Oph Susp) 1 drops DAILY OPL 02/08/17 09:00 03/10/17 08:59 02/13/17 09:05 1 DROPS Vitamin B Complex/ Vit C/Folic Acid (Nephrocaps) 1 cap DAILY PO 02/08/17 09:00 03/10/17 08:59 02/13/17 09:03 1 CAP Miscellaneous Information (Order Awaiting Action) 1 ea QS N/A 02/08/17 08:00 03/10/17 07:59 Glucose (Glucose 40% Gel) 15-30 GRAMS 15 GRAMS... UD PRN PO 02/08/17 05:15 03/10/17 05:14 Glucose (Glucose Chew Tab) 4-8 Tablets 4 Tabl... UD PRN PO 02/08/17 05:15 03/10/17 05:14 Dextrose (Dextrose 50% 50ML Syringe) 25-50ML OF 50% DW IV FOR... UD PRN IV 02/08/17 05:15 03/10/17 05:14 02/08/17 20:19 25 ML Glucagon (Glucagon Inj) 1 mg UD PRN SQ 02/08/17 05:15 03/10/17 05:14 Valacyclovir HCl (Valtrex Tab) 1,000 mg DAILY PO 02/08/17 09:00 03/10/17 08:59 02/13/17 09:03 1,000 MG Insulin Aspart (novoLOG ASPART) SLIDING SCALE If C... ACHS SC 02/08/17 07:00 03/10/17 06:59 02/13/17 12:00 2 UNITS Heparin Sodium (Porcine) 43154 unit/Dextrose 500 ml @ 30 mls/hr [id number] PRN IV 02/08/17 14:30 03/10/17 14:29 02/13/17 01:57 30 MLS/HR Clopidogrel Bisulfate (plAVix TAB) 75 mg QAM PO 02/09/17 09:00 03/11/17 08:59 02/13/17 09:05 75 MG Metoprolol Tartrate (Lopressor Tab) 50 mg BID PO 02/09/17 09:00 03/11/17 08:59 02/13/17 09:03 50 MG Nitroglycerin (Nitroglycerin 2% Oint) 1 inch Q6 EXT 02/09/17 06:00 03/11/17 05:59 02/13/17 11:21 1 INCH Lidocaine (Lidoderm Patch 5%) 1 patch QAM TD 02/10/17 09:00 03/12/17 08:59 02/13/17 09:04 1 PATCH Miscellaneous (Remove Lidoderm Patch) 1 ea DAILY@21 N/A 02/09/17 21:00 03/11/17 20:59 02/12/17 20:26 1 EA Oxycodone HCl (Roxicodone Immediate Rel Tab) 5 mg Q6H PRN PO 02/10/17 12:00 02/24/17 11:59 02/11/17 20:30 5 MG Diltiazem HCl (Cardizem Cd Cap) 120 mg QAM PO 02/11/17 09:00 03/13/17 08:59 02/13/17 09:05 120 MG Pantoprazole Sodium (Protonix Tab) 40 mg BID PO 02/12/17 09:00 03/14/17 08:59 02/13/17 09:03 40 MG Lidocaine/ Prilocaine (Emla 2.5% Crm) 1 ea UD PRN EXT 02/11/17 20:15 03/13/17 20:14 Warfarin Sodium (Coumadin Tab) 10 mg DAILY@16 PO 02/12/17 16:00 03/14/17 15:59 02/12/17 16:12 10 MG Albuterol/ Ipratropium (Duoneb) 3 ml QIDR PRN INH 02/12/17 16:00 03/10/17 07:59 02/12/17 15:15 3 ML Diazepam (Valium Tab) 5 mg HS PRN PO 02/12/17 15:15 03/14/17 15:14 02/12/17 16:14 5 MG
[2017-02-14] VITALS (21 sets, daily range): BP systolic 102–158; BP diastolic 59–81; PULSE 79–119; TEMP 36.4–36.7; O2SAT 96
[2017-02-14] MEDS: NITROGLYCERIN OINT 2% 1GM PACKET EXT SCH ×2 (05:48→15:50)
[2017-02-14] MEDS: PrednisoLONE ACET 1% OP SUSP 5 ML BTL OPL SCH (07:52)
[2017-02-14] MEDS: INCRUSE ELLIPTA~ORDER AWAITING ACTION SCH ×2 (07:52→15:53)
[2017-02-14] MEDS: FLUTICASONE/SALMETEROL 250/50 (ADVAIR) 14 PUFF/1 INHALER INH SCH (07:52)
[2017-02-14] MEDS: LIDODERM (LIDOCAINE) PATCH 5% TD SCH (08:00)
[2017-02-14] MEDS: LACTOBACILLUS ACIDOPHILUS (FLORANEX) TAB PO SCH (08:00)
[2017-02-14] MEDS: FUROSEMIDE 40 MG TAB PO SCH (08:00)
[2017-02-14] MEDS: INSULIN ASPART 100 UNITS/ML 3 ML PEN SC SCH ×3 (08:10→15:52)
[2017-02-14] MEDS: INSULIN GLARGINE SOLOSTAR 100 UNITS/ML 3 ML PEN SC SCH (08:11)
[2017-02-14] MEDS: NEPHROCAPS PO SCH (08:16)
[2017-02-14] MEDS: CALCIUM ACETATE 667MG GELCAP PO SCH ×3 (08:17→15:53)
[2017-02-14 08:26] LABS: INR 1.8 (0.9-1.1); PARTIAL THROMBOPLASTIN RATIO 2.2; PROTHROMBIN TIME (PATIENT) 20.3 SECONDS (9.0-12.0)
[2017-02-14] MEDS: HEPARIN 25000 UNIT/ D5W 500 ML (PHARMACY PREPARED) IV PRN ×2 (08:34)
[2017-02-14 08:48] LABS: BUN/CREATININE RATIO 5.1 (10-20); CALCIUM 8.5 mg/dl (8.5-10.1); CREATININE 9.42 mg/dl (0.60-1.20); POTASSIUM 3.8 mmol/L (3.5-5.1)
[2017-02-14] MEDS ORDERED: HEPARIN SOD (PORCINE) 1000 UNIT/ML 10 ML VIAL IV SCH (09:30)
[2017-02-14] MEDS ORDERED: EPOETIN ALFA 10,000 UNITS/ML VIAL IV. ONE (09:30)
[2017-02-14] MEDS ORDERED: EPOETIN ALFA INJ 12,000 UNITS in SYRINGE 0 ML IV. SCH (10:00)
[2017-02-14] MEDS: HEPARIN SOD (PORCINE) 1000 UNIT/ML 10 ML VIAL IV SCH ×3 (10:30→12:30)
[2017-02-14] MEDS: ALBUMIN HUMAN 25% 12.5 GM/50 ML VIAL IV SCH ×2 (10:53→12:15)
[2017-02-14] MEDS ORDERED: WARF-246 PO (12:04)
[2017-02-14] MEDS ORDERED: DILT120C50 PO (12:04)
[2017-02-14] MEDS ORDERED: METO50TA16 PO (12:04)
--- NOTE | 2017-02-14 12:14 | Discharge Instructions ---
Discharge Instructions Date of Service Feb 14, 2017. Admission Reason for Admission: Respiratory Failure, Acute Discharge Discharge Diagnosis / Problem: Acute respiratory failure 2/2 diastolic heart failure, RUQ pain Discharge Goals Goal(s): Increase independence Activity Recommendations Activity Limitations: per Instructions/Follow-up section . Instructions / Follow-Up Instructions / Follow-Up Please take all medications as instructed. You have a follow-up appointment with Dr. Armando on 02/21 @ 2:45pm (PCP) for follow-up from this hospitalization. Please bring all paperwork from discharge with you when you go. You have a 25mm left adrenal nodule that was seen on imaging while you were here at the hospital. This will need to be addressed by your PCP Cont with dialysis as scheduled for this holiday week on Friday 02/16 as instructed. You will need to follow-up with the [facility] within one week of discharge to have your INR checked and coumadin level adjusted. For now, please stay on the 10mg dose daily. Home Health for continues physical therapy has been ordered for you until your lower back/gluteal pain improves. It was a pleasure taking care of you! Call if you have any questions or problems. You can reach a [facility] hospitalist on duty at [facility] 24 hours a day by calling [phone]. Take care of yourself. Laverne Simpson DO [facility] Hospitalist Current Hospital Diet Patient's current hospital diet: Diabetes Type 2 Diet, Renal Diet Discharge Diet Recommended Diet: Diabetes Type 2 Diet, Renal Diet Procedures Procedures Performed: TTE (02/08) inpatient dialysis Pending Studies Studies pending at discharge: yes List of pending studies: Preliminary blood cultures were negative but not finalized at discharge. Laboratory Results Hemoglobin A1c Test 02/01/17 05:25 Range/Units Estimated Average Glucose 128 mg/dl Hemoglobin A1c 6.1 H 4.5-5.6 % Lipid Panel Test 02/09/17 04:18 Range/Units Triglycerides Level 89 0-150 mg/dl Cholesterol Level 87 0-200 mg/dl HDL Cholesterol 36 mg/dl Cholesterol/HDL Ratio 2.4 LDL Cholesterol, Calculated 33 mg/dl Medical Emergencies . Who to Call and When: Medical Emergencies: If at any time you feel your situation is an emergency, please call 911 immediately. . Non-Emergent Contact Non-Emergency issues call your: Primary Care Provider . . "Provider Documentation" section prepared by Laverne Simpson. . VTE Core Measure Inpt VTE Proph given/why not?: Warfarin (Coumadin), Other Anticoagulation, SCD' s
--- NOTE | 2017-02-14 12:39 | Discharge Summary ---
Discharge Summary Date of Service Feb 14, 2017. 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 Consultations: Nephrology Cardiology Pulmonary GI . Pending Studies/Follow-Up: see instructions below. Medication Reconciliation New Medications: Diltiazem HCl (Diltiazem Cd) 120 Mg Capcr 120 MG PO QAM for 30 Days, #30 CAP 1 Refill Metoprolol Tartrate (Lopressor) (Lopressor) 50 Mg Tab 50 MG PO BID for 30 Days, #60 TAB 1 Refill Changed Medications: Warfarin Sodium (Warfarin Sodium) 5 Mg Tab 10 MG PO DAILY for 15 Days, #30 TAB 1 Refill (Changed from: 5-10 MG; Refills: ) Take until rechecked by coumadin clinic-adjust per their instruction Continued Medications: Acetaminophen (Apap) 325 Mg Tab 650 MG PO Q6 PRN for Pain Albuterol Hfa (Ventolin Hfa) 200 Puffs/68894 Mcg Aers 2 PUFFS INH Q4 PRN for SOB/Wheezing Calcium Acetate (Phoslo 667 Mg) 667 Mg Cap 2 CAP PO TIDM, CAP Clonidine Hcl (Catapres) 0.1 Mg Tab 0.1 MG PO BID, TAB Cyanocobalamin (Cyanocobalamin) 1,000 Mcg/Ml Inj 1000 MCG IM MONTHLY Epoetin [place] (Procrit) 10,000 Units Inj per dialysis clinic Ergocalciferol (Vitamin D 70097 Unit) 50,000 Unit Cap 72695 UNIT PO MONTHLY, CAP 9th Fluticasone Prop/Salmeterol (Advair Diskus 250/50 60 Dose) 1 Ea Aerp 2 PUFF INH BID Furosemide (Furosemide) 40 Mg Tab 40 MG PO DAILY Home O2 Therapy (Oxygen) Gas 2.5 LITERS NA CONTINOUS Insulin Aspart (Novolog Flexpen) 100 Units/Ml Inj 2-3 UNITS SQ TIDM TAKES PER SLIDING SCALE Insulin Glargine (Lantus) 100 Unit/Ml Inj 26 UNITS SC QAM, VIAL Ipratropium-Albuterol (Duoneb) 3 Ml Nebu 1 TREATMENT INH QID PRN for SOB/Wheezing, INHA Lactobacillus (Lactobacillus) 1 Tab Tab 1 TAB PO UD Lidocaine-Prilocaine (Idvutthxd-Ctugyrfkxc-Tewk 2.5-2.5 %) 1 Cre Cre 1 APPLN TOP UD PRN for PRIOR TO DIALYSIS APPLY SMALL AMT TO ACCESS SITE 1-2 HOURS BEFORE DIALYSIS. COVER WITH SARAN WRAP Losartan Potassium (Cozaar) 100 Mg Tab 100 MG PO DAILY, TAB Prednisolone Acetate (Ophth) (Pred Forte 1% Oph) 1 % Neena 1 DROPS OPL DAILY, #5 ML Umeclidinium [place] (Incruse Ellipta) 62.5 Mcg/Inh Inh 1 PUFF INH DAILY, #30 Valacyclovir Hcl (Valtrex) 1 Gm Tab 1000 MG PO DAILY, #21 TAB Vitamin B Cmplx/Vitc/Folic Ac (Nephrocaps) Cap 1 CAP PO DAILY, CAP Discontinued Medications: Amlodipine (Norvasc) 10 Mg Tab 10 MG PO QAM Metoprolol Tartrate (Lopressor) (Lopressor) 25 Mg Tab 25 MG PO BID Pseudoephedrine-Guaifenesin (Cvs Mucus D Extended Rele 60-600 mg) 1 Tab Tab 1 TAB PO Q12 PRN for Nasal Congestion Admission Information HPI (per Admitting provider): 71 year old female with PMH DM type 2, Tobacco abuse, Paroxysmal AFib, ESRD on HD, HTN, COPD, CHF presents to the Emergency Room with complaints of worsening SOB. History is limited because pt is on Bipap. Pt was recently admitted on 02/01 to 02/06 for SOB. Pt said that she was doing ok after discharging. Her breathing was stable and she saw her PCP yesterday for a hospital follow. She said that last night around midnight she develops SOB. She said that the SOB woke her up and she was gasping for air. She said that she has been monitor her fluid intake. She continue to smoke. Denies any chest pain, palpitation, fever. Physical Exam (per Admitting): General Appearance: + moderate distress, + obese Head: normocephalic, atraumatic Eyes: EOMI ENT: hearing grossly normal Neck: no JVD, trachea midline Respiratory/Chest: + respiratory distress, + decreased breath sounds Cardiovascular: regular rate, rhythm, no JVD Abdomen/GI: normal bowel sounds, non tender Back: no CVA tenderness Extremities/Musculoskelatal: no calf tenderness, + swelling (mild) Neurologic/Psych: alert, oriented x 3 Skin: warm/dry, no rash Hospital Course 71 yo F with persistent shortness of breath. She was transferred to the ER via EMS and was started on BIPAP for some respiratory distress. She was started on CPAP by EMS then transitioned to BIPAP in the ER. Oxygen saturations were near 100%. She was notably due for dialysis later that morning and had recently been admitted 02/01-02/06 for a COPD exacerbation. Physical exam revealed a BP 201/107, pulse 71 temp 36.8C . She had diminished breath sounds at the bases with crackles near the apex, a soft nontender abdomen with positive bowel sounds. EKG revealed no evidence of acute ischemic change. [place] was unrevealing except for a WBC count of 17K, which was thought 2/2 recent steroid use. CXR revealed a congestive heart failure pattern. She was admitted to telemetry, given Lasix and continued on BIPAP. Nephro was consulted to perform inpatient HD. Shortly after admission, she began reporting a sharp, stabbing pain under her right breast which at first was unclear if it was chest or abdominal pain. Cardiology was consulted and was more concerned that she might have a pulmonary embolus in the setting of recent subtherapeutic INRs. A CTA was ordered and she was empirically placed on a heparin drip for bridge while hospitalized to INR 2-3. Pulmonary was consulted and after further discussion a CTA of the abdomen was added to the chest film. There was no evidence of aortic aneurysm or dissection, no evidence of acute PE, subcentimeter pulmonary nodules, 25mm L adrenal adenoma, nonspecific hypodense splenic lesions (35mm) and septal edema and bilateral pleural effusions suggesting CHF. CTA of the abdomen revealed multifocal stenosis within the mesenteric and renal arteries. Specifically there was focal high grade stenosis to 90% within the mid inferior mesenteric artery and 90% stenosis in the L renal artery. Her abdominal pain was thought secondary to this vascular disease and the Vascular Surgery team was consulted. They did not feel she was a candidate for intervention at that time. She subsequently developed fever with lower back/gluteal pain and this persistent RUQ pain. She was placed on Vancomycin empirically with resolution of her fever and clinical improvement overall. An L spine MRI was performed to rule out infection and was negative for this but did reveal spinal stenosis. Blood cultures were negative and pt was clinically improved so Vanc stopped with no decompensation. Her RUQ eventually resolved completely and her gluteal pain continued to improve but was present for the rest of her hospitalization. She continues to deny any RUQ pain for three days prior to discharge. At time of discharge she had been afebrile and hemodynamically stable for at least three days with a stable physical exam. She was tolerating PO without issue and was mentating at baseline. PT/OT evaluated her and recommended it was safe to send her home. She was sent home in stable condition with close PCP follow- up. Total time spent on discharge = 60 minutes This includes examination of the patient, discharge planning, medication reconciliation, and communication with other providers[place] [address] Discharge Medical Patient Name: Flaquita Velasco Unit Number: [id number] Date of : 1945 Patient Status: Admitted Inpatient Attending Doctor: Laverne Simpson DO DI: Medical v4 Discharge Instructions Date of Service Feb 14, 2017. Admission Reason for Admission: Respiratory Failure, Acute Discharge Discharge Diagnosis / Problem: Acute respiratory failure 2/2 diastolic heart failure, RUQ pain Discharge Goals Goal(s): Increase independence Activity Recommendations Activity Limitations: per Instructions/Follow-up section . Instructions / Follow-Up Instructions / Follow-Up Please take all medications as instructed. You have a follow-up appointment with Dr. Armando on 02/21 @ 2:45pm (PCP) for follow-up from this hospitalization. Please bring all paperwork from discharge with you when you go. You have a 25mm left adrenal nodule that was seen on imaging while you were here at the hospital. This will need to be addressed by your PCP Cont with dialysis as scheduled for this holiday week on Friday 02/16 as instructed. You will need to follow-up with the Coumadin Clinic within one week of discharge to have your INR checked and coumadin level adjusted. For now, please stay on the 10mg dose daily. Home Health for continues physical therapy has been ordered for you until your lower back/gluteal pain improves. It was a pleasure taking care of you! Call if you have any questions or problems. You can reach a [facility] hospitalist on duty at [facility] 24 hours a day by calling [phone]. Take care of yourself. DO [facility] Hospitalist Current Hospital Diet Patient's current hospital diet: Diabetes Type 2 Diet, Renal Diet Discharge Diet Recommended Diet: Diabetes Type 2 Diet, Renal Diet Procedures Procedures Performed: TTE (02/08) inpatient dialysis Pending Studies Studies pending at discharge: yes List of pending studies: Preliminary blood cultures were negative but not finalized at discharge. Laboratory Results Hemoglobin A1c Test 02/01/17 05:25 Range/Units Estimated Average Glucose 128 mg/dl Hemoglobin A1c 6.1 H 4.5-5.6 % Lipid Panel Test 02/09/17 04:18 Range/Units Triglycerides Level 89 0-150 mg/dl Cholesterol Level 87 0-200 mg/dl HDL Cholesterol 36 mg/dl Cholesterol/HDL Ratio 2.4 LDL Cholesterol, Calculated 33 mg/dl Medical Emergencies . Who to Call and When: Medical Emergencies: If at any time you feel your situation is an emergency, please call 911 immediately. . Non-Emergent Contact Non-Emergency issues call your: Primary Care Provider . . "Provider Documentation" section prepared by Laverne Simpson. . VTE Core Measure Inpt VTE Proph given/why not?: Warfarin (Coumadin), Other Anticoagulation, SCD' s Additional Copies To Noam Armando M.D.
[2017-02-14] MEDS: CLONIDINE HCL 0.1 MG TAB PO SCH (15:48)
[2017-02-14] MEDS: LOSARTAN POTASSIUM 50 MG TAB PO SCH (15:48)
[2017-02-14] MEDS: PANTOprazole SOD 40 MG TAB PO SCH (15:48)
[2017-02-14] MEDS: CLOPIDOGREL BISULFATE 75 MG TAB PO SCH (15:49)
[2017-02-14] MEDS: DILTIAZEM HCL 120 MG CAPCR PO SCH (15:49)
[2017-02-14] MEDS: METOPROLOL TARTRATE 50 MG TAB PO SCH (15:49)
[2017-02-14] MEDS: WARFARIN SOD 10 MG TAB PO SCH (15:51)
--- NOTE | 2017-02-14 17:12 | Nephrology Progress Note ---
Nephrology Progress Note Date of Service: Feb 14, 2017. Subjective seen on rounds this am 0940; back a bit better; breathing at baseline; remains on heparin gtt; no n/v; no change in 02 needs Objective Date Time Temp Pulse Resp B/P (MAP) Pulse Ox O2 Delivery O2 Flow Rate FiO2 02/14/17 17:04 36.4 119 17 96 Nasal Cannula 02/14/17 16:02 96 Nasal Cannula 3.0 02/14/17 14:30 36.4 119 132/81 (98) 02/14/17 14:15 102 136/63 02/14/17 14:00 104 119/62 02/14/17 13:45 111 143/73 02/14/17 13:30 107 125/74 02/14/17 13:15 94 158/75 02/14/17 13:00 100 135/61 02/14/17 12:45 101 138/63 02/14/17 12:30 94 145/71 02/14/17 12:15 97 140/68 02/14/17 12:00 100 131/62 02/14/17 11:45 102 136/75 02/14/17 11:30 92 134/74 02/14/17 11:15 94 137/64 02/14/17 11:00 102 115/59 02/14/17 10:42 36.4 87 126/59 (81) 02/14/17 08:00 96 Nasal Cannula 3.0 02/14/17 07:18 36.7 88 17 102/71 (81) 96 Nasal Cannula 2.0 02/14/17 05:47 79 121/73 (89) 02/13/17 22:38 37.0 92 18 133/72 (92) 93 Room Air 02/13/17 20:00 98 Nasal Cannula 3.0 02/13/17 18:45 36.9 80 18 123/76 (92) 98 Nasal Cannula 3.0 Physical Exam: General-aaox3, nad on 2.5L NC, up in chair Eyes-no scleral icterus ENT-mmm Neck-supple Lungs-diminished air entry ant exam Heart-irregular Abdomen-nontender Extremities-trace/1+ edema Neuro-louie, fluent speech Current Inpatient Medications Medications (Trade) Dose Ordered Sig/Joan Route Start Time Stop Time Status Last Admin Dose Admin Acetaminophen (Tylenol Tab) 650 mg Q6 PRN PO 02/08/17 05:15 03/10/17 05:14 02/11/17 15:11 650 MG Albuterol (Ventolin Hfa Inhaler) 2 puffs Q4 PRN INH 02/08/17 05:15 03/10/17 05:14 Calcium Acetate (Phoslo Cap) 1,334 mg TIDM PO 02/08/17 07:30 03/10/17 07:59 02/14/17 15:49 1,334 MG Clonidine HCl (Catapres Tab) 0.1 mg BID PO 02/08/17 09:00 03/10/17 08:59 02/14/17 15:48 0.1 MG Salmeterol Xinafoate/ Fluticasone (Advair Diskus 250/50 Inh) 1 puff BID INH 02/08/17 09:00 03/10/17 08:59 02/14/17 07:52 1 PUFF Furosemide (Lasix Tab) 40 mg DAILY PO 02/08/17 09:00 03/10/17 08:59 Future hold 02/13/17 12:35 40 MG Insulin Glargine (Lantus Solostar Pen) 26 units QAM SC 02/08/17 09:00 03/10/17 08:59 Future hold 02/14/17 08:11 26 UNITS Lactobacillus Acidophilus (Floranex Tab) 1 tab DAILY PO 02/08/17 09:00 03/10/17 08:59 02/13/17 09:04 1 TAB Losartan Potassium (coZAAR TAB) 100 mg DAILY PO 02/08/17 09:00 03/10/17 08:59 02/14/17 15:48 100 MG Prednisolone Acetate (Pred Forte 1% Oph Susp) 1 drops DAILY OPL 02/08/17 09:00 03/10/17 08:59 02/14/17 07:52 1 DROPS Vitamin B Complex/ Vit C/Folic Acid (Nephrocaps) 1 cap DAILY PO 02/08/17 09:00 03/10/17 08:59 02/14/17 08:16 1 CAP Miscellaneous Information (Order Awaiting Action) 1 ea QS N/A 02/08/17 08:00 03/10/17 07:59 Glucose (Glucose 40% Gel) 15-30 GRAMS 15 GRAMS... UD PRN PO 02/08/17 05:15 03/10/17 05:14 Glucose (Glucose Chew Tab) 4-8 Tablets 4 Tabl... UD PRN PO 02/08/17 05:15 03/10/17 05:14 Dextrose (Dextrose 50% 50ML Syringe) 25-50ML OF 50% DW IV FOR... UD PRN IV 02/08/17 05:15 03/10/17 05:14 02/08/17 20:19 25 ML Glucagon (Glucagon Inj) 1 mg UD PRN SQ 02/08/17 05:15 03/10/17 05:14 Valacyclovir HCl (Valtrex Tab) 1,000 mg DAILY PO 02/08/17 09:00 03/10/17 08:59 02/14/17 15:48 1,000 MG Insulin Aspart (novoLOG ASPART) SLIDING SCALE If C... ACHS SC 02/08/17 07:00 03/10/17 06:59 02/14/17 08:10 2 UNITS Heparin Sodium (Porcine) 07214 unit/Dextrose 500 ml @ 30 mls/hr [id number] PRN IV 02/08/17 14:30 03/10/17 14:29 02/14/17 08:34 30 MLS/HR Clopidogrel Bisulfate (plAVix TAB) 75 mg QAM PO 02/09/17 09:00 03/11/17 08:59 02/14/17 15:49 75 MG Metoprolol Tartrate (Lopressor Tab) 50 mg BID PO 02/09/17 09:00 03/11/17 08:59 02/14/17 15:49 50 MG Nitroglycerin (Nitroglycerin 2% Oint) 1 inch Q6 EXT 02/09/17 06:00 03/11/17 05:59 02/14/17 15:50 1 INCH Lidocaine (Lidoderm Patch 5%) 1 patch QAM TD 02/10/17 09:00 03/12/17 08:59 02/13/17 09:04 1 PATCH Miscellaneous (Remove Lidoderm Patch) 1 ea DAILY@21 N/A 02/09/17 21:00 03/11/17 20:59 02/13/17 20:47 1 EA Oxycodone HCl (Roxicodone Immediate Rel Tab) 5 mg Q6H PRN PO 02/10/17 12:00 02/24/17 11:59 02/11/17 20:30 5 MG Diltiazem HCl (Cardizem Cd Cap) 120 mg QAM PO 02/11/17 09:00 03/13/17 08:59 02/14/17 15:49 120 MG Pantoprazole Sodium (Protonix Tab) 40 mg BID PO 02/12/17 09:00 03/14/17 08:59 02/14/17 15:48 40 MG Lidocaine/ Prilocaine (Emla 2.5% Crm) 1 ea UD PRN EXT 02/11/17 20:15 03/13/17 20:14 Warfarin Sodium (Coumadin Tab) 10 mg DAILY@16 PO 02/12/17 16:00 03/14/17 15:59 02/14/17 15:51 10 MG Albuterol/ Ipratropium (Duoneb) 3 ml QIDR PRN INH 02/12/17 16:00 03/10/17 07:59 02/12/17 15:15 3 ML Diazepam (Valium Tab) 5 mg HS PRN PO 02/12/17 15:15 03/14/17 15:14 02/12/17 16:14 5 MG Last 24 Hours Test 02/13/17 20:04 02/14/17 07:25 02/14/17 07:55 02/14/17 11:34 Bedside Glucose 71 mg/dl 82 mg/dl 115 mg/dl Prothrombin Time 20.3 SECONDS Prothromb Time International Ratio 1.8 Activated Partial Thromboplast Time 57.8 SECONDS Partial Thromboplastin Ratio 2.2 Sodium Level 136 mmol/L Potassium Level 3.8 mmol/L Chloride Level 98 mmol/L Carbon Dioxide Level 26 mmol/L Anion Gap 12.0 mmol/L Blood Urea Nitrogen 48 mg/dl Creatinine 9.42 mg/dl Est Creatinine Clear Calc Drug Dose 6.8 ml/min Estimated GFR () 4.4 Estimated GFR (Non- 3.8 BUN/Creatinine Ratio 5.1 Random Glucose 77 mg/dl Calcium Level 8.5 mg/dl Assessment & Plan 71 yo female with esrd with paroxysmal afib who presented with worsening ruq pain and underwent thorough workup from pulmonary, vascular surgery, cardiology , GI. pt currently looks better. complaining of ongoing low back pain; however the ruq pain is better today. ESRD-had HD 02/12 and for HD again today; on 3K bath; plan next tx 02/16 as inpt or outpt assuming clinically stable <<>>trying as appropriate to tolerate outpt schedule (including for holiday) Anemia of Renal Failure-hg levels are trending down, may be dilutional. today had more procrit. remains on heparin gtt while INR getting therapeutic
== END 2017-02-14 17:46 | disposition home or self-care (01) | DRG 291 ==
LOC: EDBD 02:04 → C.EDA 02:07 → C.2T 04:42 → EEVIPCON 04:42 → ENRESERV 04:58 → C.2T 09:23 → EDBEDREQ 02-13 16:50 → ENRESERV 02-13 17:59 → C.4E 02-13 18:37
PROVIDERS: ADMIT Internal Medicine; ATTEND Hospitalist
DX: I50.33 Acute on chronic diastolic (congestive) heart failure (principal); J96.21 Acute and chronic respiratory failure with hypoxia; N18.6 End stage renal disease; K55.1 Chronic vascular disorders of intestine; I13.2 Hypertensive heart and chronic kidney disease with heart failure and with stage 5 chronic kidney disease, or end stage renal disease; B00.51 Herpesviral iridocyclitis; I70.1 Atherosclerosis of renal artery; E83.51 Hypocalcemia; S39.012A Strain of muscle, fascia and tendon of lower back, initial encounter; M48.061 Spinal stenosis, lumbar region without neurogenic claudication; R78.89 Finding of other specified substances, not normally found in blood; J44.9 Chronic obstructive pulmonary disease, unspecified; I48.0 Paroxysmal atrial fibrillation; E11.22 Type 2 diabetes mellitus with diabetic chronic kidney disease; D63.1 Anemia in chronic kidney disease; E78.5 Hyperlipidemia, unspecified; E66.9 Obesity, unspecified; F17.200 Nicotine dependence, unspecified, uncomplicated; Z51.81 Encounter for therapeutic drug level monitoring; Z79.899 Other long term (current) drug therapy; Z79.01 Long term (current) use of anticoagulants; Z79.4 Long term (current) use of insulin; Z99.81 Dependence on supplemental oxygen; Z99.2 Dependence on renal dialysis; Z68.39 Body mass index [BMI] 39.0-39.9, adult; Z83.3 Family history of diabetes mellitus; Z82.49 Family history of ischemic heart disease and other diseases of the circulatory system; X58.XXXA Exposure to other specified factors, initial encounter; Y92.239 Unspecified place in hospital as the place of occurrence of the external cause; Y99.8 Other external cause status

== ENCOUNTER 2017-02-28 19:02 | Inpatient (IN) | payer OTHER ==
[~2017-02-28] VITALS: Ht 167.6 cm; Wt 96.8 kg
[~2017-02-28 19:02] MED LIST changes: -AMLO-114 PO; +DILT-202 PO; -METH4PAK PO; -METO25TA56 PO; +METO50TA16 PO; -PSEU1TAB PO
--- NOTE | 2017-02-28 19:37 | EMERGENCY ROOM VISIT NOTE ---
History Report prepared by Yohanaibjohn: Boogie Quintanilla Under the Supervision of: Dr. Mihai Caldera M.D. First contact with patient: 19:10 Chief Complaint: RESPIRATORY PROBLEMS Stated Complaint: BREATHING DIFFICULTY History of Present Illness The patient is a 71 year old white female with a past medical history of A-fib, COPD, CHF, HTN, ESRD /, diabetes, hyperlipidemia who presents to the ED with a cc of worsening shortness of breath beginning two days ago. Symptoms worsened with laying flat and exertion. Positive chills, non-productive cough. Negative increased leg swelling. Patient is on dialysis Tuesday, , Tuesday with her most recent treatment two days ago. Patient on 2.5 L supplemental oxygen at home. She has not smoked for the past 2 weeks. Source of History: patient Onset: Two days ago Quality: other (shortness of breath) Timing: worsening Modifying Factors (Worsening): exertion, other (laying flat) Associated Symptoms: + chills, + cough (non-productive) Note: Negative: increased leg swelling. Review of Systems See HPI for pertinent positives and negatives. A total of ten systems were reviewed and were otherwise negative. 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 (14) History of Helicobacter pylori infection (15) Hypertension Nos (16) Moderate mitral regurgitation (17) Obesity (18) Osteoarthritis (19) Pancreatic cyst (20) Psoriasis (21) Renal cyst (22) Respiratory failure, acute (23) SOB (shortness of breath) Surgical Problems: (1) H/O colonoscopy (2) H/O nasal polypectomy (3) History of cataract surgery (4) S/P appendectomy (5) S/P cholecystectomy (6) S/P left oophorectomy (7) S/P ASH (total abdominal hysterectomy) Family History Diabetes mellitus FATHER MOTHER BROTHER FH: cancer BROTHER FH: heart disease FATHER Hypertension BROTHER Kidney disease BROTHER Social History Smoking Status: Former Smoker Drug Use: none Marital Status: Housing Status: lives with family Occupation Status: retired Current/Historical Medications Scheduled Calcium Acetate (Phoslo 667 Mg), 2 CAP PO TIDM Clonidine Hcl (Catapres), 0.1 MG PO BID Cyanocobalamin (Cyanocobalamin), 1,000 MCG IM MONTHLY Diltiazem Hcl Coated Beads (Diltiazem Cd), 120 MG PO QAM Ergocalciferol (Vitamin D 25946 Unit), 50,000 UNIT PO MONTHLY Fluticasone Prop/Salmeterol (Advair Diskus 250/50 60 Dose), 2 PUFF INH BID Furosemide (Furosemide), 40 MG PO DAILY Home O2 Therapy (Oxygen), 2.5 LITERS NA CONTINOUS Insulin Aspart (Novolog Flexpen), 2-3 UNITS SQ TIDM Insulin Glargine (Lantus), 26 UNITS SC QAM Lactobacillus (Lactobacillus), 1 TAB PO UD Losartan Potassium (Cozaar), 100 MG PO DAILY Metoprolol Tartrate (Lopressor) (Lopressor), 50 MG PO BID Prednisolone Acetate (Ophth) (Pred Forte 1% Oph), 1 DROPS OPL DAILY Umeclidinium [place] (Incruse Ellipta), 1 PUFF INH DAILY Valacyclovir Hcl (Valtrex), 1,000 MG PO DAILY Vitamin B Cmplx/Vitc/Folic Ac (Nephrocaps), 1 CAP PO DAILY Warfarin Sod (Coumadin), 5 MG PO 3XWK Warfarin Sod (Coumadin), 7.5 MG PO 4XWK Scheduled PRN Acetaminophen (Apap), 650 MG PO Q6 PRN for Pain Albuterol Hfa (Ventolin Hfa), 2 PUFFS INH Q4 PRN for SOB/Wheezing Ipratropium-Albuterol (Duoneb), 1 TREATMENT INH QID PRN for SOB/Wheezing Lidocaine-Prilocaine (Wzyrmdfxp-Wsxkyizimx-Pdbj 2.5-2.5 %), 1 APPLN TOP UD PRN for PRIOR TO DIALYSIS Miscellaneous Medications Epoetin [place] (Procrit) Allergies Coded Allergies: No Known Allergies (Verified , 02/08/17) Physical Exam Vital Signs Date Time Temp Pulse Resp B/P (MAP) Pulse Ox O2 Delivery O2 Flow Rate FiO2 02/28/17 22:45 66 27 88 02/28/17 22:06 66 22 165/94 93 Oxymask 4.0 02/28/17 21:25 57 22 148/91 98 Nebulizer 02/28/17 20:50 59 22 133/76 94 Oxymask 3.0 02/28/17 19:39 94 Oxymask 4.0 02/28/17 19:14 62 02/28/17 19:09 91 Nasal Cannula 6.0 02/28/17 19:09 37.0 60 18 178/73 78 Nasal Cannula 2.5 Physical Exam GENERAL: Awake, alert, well-appearing, NAD. On nasal canula. HENT: Normocephalic, atraumatic. EYES: Normal conjunctiva. Sclera non-icteric. NECK: Supple. No nuchal rigidity. FROM. RESPIRATORY: CTAB, no rhonchi, wheezing, crackles. Expiratory wheezing on the right. Crackles and decreased breath sounds at the bilateral lung bases. CARDIAC: RRR, no MRG ABDOMEN: Soft, NTND, BS+ MSK: No chest wall TTP, Trace to 1+ bilateral pedal edema. LUE AVF with good palpable thrill. NEURO: GCS 15, CN 2-12 intact, moves all 4s on command SKIN: No rash or jaundice noted. Medical Decision & Procedures ER Provider Diagnostic Interpretation: X-ray: Per my interpretation, radiologist review. CHEST ONE VIEW PORTABLE FINDINGS: The cardiac and mediastinal contours remain stable. There are persistent but improving bibasal airspace opacities. Is blunting of the right lateral costophrenic angle. There is mild vascular prominence without evidence of overt edema. IMPRESSION: Persistent but improving bibasal airspace opacities. Possible small right pleural effusion. Electronically signed by: Deepak Terry M.D. 02/28/2017 8:00 PM Laboratory Results Test 02/28/17 19:48 Activated Partial Thromboplast Time 32.7 SECONDS (21.0-31.0) Partial Thromboplastin Ratio 1.3 Venous Blood pH 7.44 (7.36-7.41) Venous Blood Partial Pressure CO2 51 mmHg (38.0-50.0) Venous Blood Partial Pressure O2 60 mmHg Venous Blood HCO3 34 mmol/L Venous Blood Oxygen Saturation 87.7 % Venous Blood Base Excess 8.7 mEq/L Total Bilirubin 0.7 mg/dl (0.2-1) Aspartate Amino Transf (AST/SGOT) 21 U/L (15-37) Alanine Aminotransferase (ALT/SGPT) 34 U/L (12-78) Alkaline Phosphatase 89 U/L (45-117) Pro-B-Type Natriuretic Peptide 11428 pg/ml (0-900) Total Protein 6.5 gm/dl (6.4-8.2) Albumin 3.4 gm/dl (3.4-5.0) Globulin 3.1 gm/dl (2.5-4.0) Albumin/Globulin Ratio 1.1 (0.9-2) Laboratory results reviewed by me Medications Administered Medications (Trade) Dose Ordered Sig/Joan Route Start Time Stop Time Status Last Admin Dose Admin Methylprednisolone Sodium Succinate (Solu-Medrol IV) 125 mg NOW STAT IV 02/28/17 21:13 02/28/17 21:15 DC 02/28/17 21:18 125 MG Azithromycin (Zithromax Tab) 500 mg NOW ONCE PO 02/28/17 21:15 02/28/17 21:16 DC 02/28/17 21:19 500 MG Magnesium Sulfate (Magnesium Sulfate) 1 gm NOW STAT IV 02/28/17 21:13 02/28/17 21:15 DC 02/28/17 21:19 1 GM Albuterol/ Ipratropium (Duoneb) 3 ml Q4R STAT INH 02/28/17 21:13 02/28/17 21:15 DC 02/28/17 21:19 3 ML Nitroglycerin (Nitrostat Tab) 0.4 mg ONE STAT SL 02/28/17 21:44 02/28/17 21:45 DC 02/28/17 21:44 0.4 MG ECG Indication: SOB/dyspnea Rate (beats per minute): 61 Rhythm: normal sinus Findings: 1st degree AV block, Q waves (AVL), T-wave inversion (V2), other ( Prolonged OR interval. Normal QRS interval. Borderline QTC interval. RAD. ) ED Course 1920: The patient was evaluated in room B12B. A complete history and physical exam was performed. 2144: I reevaluated the patient. Discussed results and discharge instructions: she verbalized understanding and agreement. The patient is ready for discharge. Medical Decision The patient is a 71 year old white female with a past medical history of A-fib, COPD, CHF, HTN, ESRD T// last HD Tuesday, diabetes, hyperlipidemia who presents to the ED with a cc of worsening shortness of breath beginning two days ago. Differential diagnosis: Etiologies such as infections, reactive airway disease, pneumonia, pneumothorax , COPD, CHF, cardiac ischemia, pulmonary embolism, musculoskeletal, gastrointestinal, as well as others were entertained. Patient seen and evaluated at the bedside. Patient w/ complaints of worseing SOB x 2 days. Has noted orthopnea and VÁSQUEZ. Uses 2.5Ls at home O2. I put her back to her normal 2.5Ls which made her drop down to 84%. Patient was then increased to 4-5Ls and maintained well w/o issue. Patient denies much LE swelling. She did get her HD on Sa for her normal 3.5 - 4 hrs w/o issue. Patient has not smoked since last hospital visit. On exam patient has trace pretibial edema, has wheezing in R chest and bibasilar crackles. Blood work completed along w/ EKG, CXR, BNP, trop. EKG non ischemic. BNP elevated. CXR w/ trace pleural effusion. Labs w/ normal WBC. Hgb 7, which is decreasing. Patient does receive EPO and likely secondary to chronic disease and ESRD, denies hematemesis or BRBPR. Patient subtherapeutic on coumadin w/ INR < 2. Patient was trx'ed for possible COPD exacerbation even in light of elevated BNP. Upon reassessment patient not improved. Given increased O2 requirement from baseline O2 use w/ elevated BNP and complex hx I did speak w/ hospitalist who agreed to evaluate and trx patient. Medication Reconcilliation Current Medication List: was personally reviewed by me Blood Pressure Screening Patient's blood pressure: Elevated blood pressure Blood pressure disposition: Elevated BP felt to be situational Consults Time Called: 2144 Consulting Physician: Dr. Marvin Marrero Hospitalist Returned Call: 2149 Discussed the patient's case. The patient will be evaluated for further treatment and disposition. Impression Primary Impression: CHF exacerbation Additional Impressions: ESRD (end stage renal disease) on dialysis Acute respiratory failure with hypoxia Anemia, chronic renal failure Scribe Attestation The scribe's documentation has been prepared under my direction and personally reviewed by me in its entirety. I confirm that the note above accurately reflects all work, treatment, procedures, and medical decision making performed by me. Departure Information Dispostion Being Evaluated By Hospitalist Referrals Noam Armando M.D. (PCP) Patient Instructions My [facility] Problem Qualifiers Primary Impression: CHF exacerbation Congestive heart failure type: unspecified congestive heart failure type Qualified Codes: I50.9 - Heart failure, unspecified Additional Impressions: Anemia, chronic renal failure Chronic kidney disease stage: stage 5 Qualified Codes: N18.5 - Chronic kidney disease, stage 5; D63.1 - Anemia in chronic kidney disease
[2017-02-28 20:01] LABS: BASO % 0.5 %; BASO ABS # 0.03 K/uL (0-0.2); EOS % 2.9 %; IG% 0.4 %; LYMPH % 11.1 %; LYMPH ABS # 0.62 K/uL (1.2-3.4); MEAN CELL VOLUME 114.7 fL (80-100); MEAN CORPUSCULAR HEMOGLOBIN 34.9 pg (25-34); MEAN CORPUSCULAR HGB CONC 30.4 g/dl (32-36); MEAN PLATELET VOLUME 10.2 fL (7.4-10.4); MONO % 7.3 %; NEUT % 77.8 %; PLATELET COUNT 180 K/uL (130-400); RED BLOOD COUNT 2.18 M/uL (4.2-5.4); WHITE BLOOD COUNT 5.61 K/uL (4.8-10.8)
--- NOTE | 2017-02-28 20:02 | DIAGNOSTIC IMAGING REPORT ---
CHEST ONE VIEW PORTABLE CLINICAL HISTORY: Respiratory distress COMPARISON STUDY: 02/08/2017 FINDINGS: The cardiac and mediastinal contours remain stable. There are persistent but improving bibasal airspace opacities. Is blunting of the right lateral costophrenic angle. There is mild vascular prominence without evidence of overt edema. IMPRESSION: Persistent but improving bibasal airspace opacities. Possible small right pleural effusion. Electronically signed by: Deepak Terry M.D. 02/28/2017 8:00 PM Dictated Date/Time: 02/28/2017 7:58 PM
[2017-02-28 20:03] LABS: VEN BLD GAS O2 SATURATION 87.7 %; VEN BLOOD GAS BASE EXCESS 8.7 mEq/L
[2017-02-28 20:11] LABS: INR 1.8 (0.9-1.1); PARTIAL THROMBOPLASTIN RATIO 1.3; PROTHROMBIN TIME (PATIENT) 18.3 SECONDS (9.0-12.0)
[2017-02-28 20:24] LABS: COMPLETE YES
[2017-02-28] MEDS ORDERED: DILT120C99 PO (20:50)
[2017-02-28 20:56] LABS: ALB/GLOB RATIO 1.1 (0.9-2); BUN/CREATININE RATIO 5.2 (10-20); CALCIUM 9.4 mg/dl (8.5-10.1); CREATININE 10.1 mg/dl (0.60-1.20); POTASSIUM 3.9 mmol/L (3.5-5.1)
[2017-02-28] MEDS ORDERED: METO50TA16 PO (20:57)
[2017-02-28] MEDS ORDERED: CMD5 PO (21:01)
[2017-02-28] MEDS ORDERED: CMD75 PO (21:03)
[2017-02-28] MEDS ORDERED: MAGNESIUM SULFATE 1GM / D5W 1 GM BAG IV STA (21:13)
[2017-02-28] MEDS ORDERED: METHYLPREDNISOLONE 125 MG VIAL IV STA (21:13)
[2017-02-28] MEDS ORDERED: ALBUT/IPRATROP 3MG/0.5MG NEB 3 ML VIAL INH STA (21:13)
[2017-02-28] MEDS ORDERED: AZITHROMYCIN 250 MG TAB PO ONE (21:15)
[2017-02-28] MEDS ORDERED: NITROGLYCERIN 0.4 MG SL PER TAB CHARGE SL STA (21:44)
[2017-02-28] MEDS ORDERED: AMPICILLIN/SULBACTAM SOD INJ 3,000 MG in SODIUM CHLORIDE 0.9% 100ML 100 ML IV STA (23:40)
[2017-02-28] MEDS ORDERED: HYDROmorphone INJ 0.5 MG/0.5 ML SYR IV PRN (23:45)
[2017-02-28] MEDS ORDERED: TRAMADOL HCL 50 MG TAB PO PRN (23:45)
[2017-02-28] MEDS ORDERED: GLUCOSE 40% GEL 15 GM TUBE PO PRN (23:45)
[2017-02-28] MEDS ORDERED: PROCHLORPERAZINE INJ 5 MG in SYRINGE 4 ML IV PRN (23:45)
[2017-02-28] MEDS ORDERED: NITROGLYCERIN 0.4 MG SL PER TAB CHARGE SL PRN (23:45)
[2017-02-28] MEDS ORDERED: GLUCOSE 10 TABS/TUBE PO PRN (23:45)
[2017-02-28] MEDS ORDERED: ACETAMINOPHEN 325 MG TAB PO PRN (23:45)
[2017-02-28] MEDS ORDERED: GLUCAGON FOR INJ 1 MG VIAL SQ PRN (23:45)
[2017-02-28] MEDS ORDERED: DEXTROSE 50% 50 ML SYR IV PRN (23:45)
[2017-02-28] MEDS ORDERED: LEVALBUTEROL/IPRATROPIUM NEB INH PRN (23:45)
[2017-03-01] VITALS (23 sets, daily range): BP systolic 101–171; BP diastolic 48–80; PULSE 60–76; TEMP 36.5–37.4; O2SAT 91–100; Ht 167.6 cm; Wt 96.8 kg
[2017-03-01] MEDS ORDERED: WARFARIN SOD 5 MG TAB PO ONE (00:45)
[2017-03-01] MEDS ORDERED: METOPROLOL TARTRATE 50 MG TAB PO ONE (00:45)
[2017-03-01] MEDS ORDERED: INSULIN ASPART 100 UNITS/ML 3 ML PEN SC ONE (00:45)
[2017-03-01] MEDS ORDERED: IPRATROPIUM BROMIDE NEB SOLN 0.02% 2.5 ML VIAL INH PRN (01:00)
[2017-03-01] MEDS ORDERED: LEVALBUTEROL 1.25MG/0.5ML NEB INH PRN (01:00)
[2017-03-01] MEDS ORDERED: INSULIN GLARGINE SOLOSTAR 100 UNITS/ML 3 ML PEN SC ONE ×2 (01:38→16:00)
[2017-03-01] MEDS: IPRATROPIUM BROMIDE NEB SOLN 0.02% 2.5 ML VIAL INH SCH ×4 (02:12→19:16)
[2017-03-01] MEDS: LEVALBUTEROL 1.25MG/0.5ML NEB INH SCH ×4 (02:12→19:16)
[2017-03-01] MEDS ORDERED: LEVALBUTEROL/IPRATROPIUM NEB INH SCH (03:00)
--- NOTE | 2017-03-01 04:07 | HISTORY & PHYSICAL EXAMINATION ---
DATE OF ADMISSION: 02/28/2017 PRIMARY CARE PHYSICIAN: Noam Armando MD. CHIEF COMPLAINT: Shortness of breath. HISTORY OF PRESENT ILLNESS: History obtained from patient and records. Medical history is significant for chronic diastolic heart failure, EF of 65-70 %. chronic respiratory failure secondary to COPD on home O2, past tobacco abuse, end-stage renal disease on hemodialysis, chronic anemia (baseline hemoglobin of 7-9), PAF on Coumadin, peripheral vascular disease as per records, Recent confinement last January 2017 for decompensated heart failure. Few days history of cough symptoms, productive of yellow white sputum, occasional coughing with meals and water. chest pain from coughing, increasing shortness of breath. No unusual fluid retention. Denies abdominal pain, black bloody stools, hematuria. At the Emergency Room, the patient received Solu-Medrol, azithromycin, nebs for possible COPD exacerbation. MEDICAL HISTORY: As above. SURGERIES: Colonoscopy, nasal polypectomy, cataract surgery, appendectomy, cholecystectomy, oophorectomy, hysterectomy, vascular procedures, eye surgery. HOME MEDICATIONS: Include acetaminophen, Ventolin, Catapres, PhosLo, sodium diltiazem, vitamin D, Procrit, Advair Diskus, furosemide, home O2, DuoNeb, NovoLog, Lantus, Cozaar, lactobacillus lidocaine, Lopressor, Pred Forte, Ellipta, Valtrex, Nephrocaps, Coumadin. ALLERGIES: No known drug allergies. FAMILY HISTORY: Diabetes, heart disease. PERSONAL AND SOCIAL HISTORY: Past tobacco abuse. No chronic intake of alcoholic beverages. 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 REVIEW OF SYSTEMS: As per HPI. All 10 systems reviewed. All other ROS negative. PHYSICAL EXAMINATION: VITAL SIGNS: Blood pressure was noted to be 178/70, pulse rate 60, RR 22, temperature 36.7, sats 78 on 2 liters, later 91 on 6 liters. GENERAL: Noted to be in minimal respiratory distress, chronically ill. SKIN: Sallow, warm. HEENT: Pale palpebral conjuctivae. mild drooping, tearing on the left (chronic ). Dry buccal mucosa. O2 mask noted. NECK: Short neck. JVD not assessed. No tenderness. LUNGS: Decreased breath sounds. Expiratory wheezes more on the right. HEART: Regular rate and rhythm. Systolic murmur. ABDOMEN: Some distension, nontender. RECTAL EXAN : Intact sphincter, brown stool, heme negative. EXTREMITIES: Minimal LE edema, no tenderness. No gross deformities. NEUROLOGIC: Coherent. No gross focality. LABORATORY DATA: Hemoglobin noted to be 7.6, hematocrit 25, white cell 5.6, platelets 180. Sodium 143, potassium 3.9, chloride 99, CO2 34, BUN 50, creatinine 10, glucose noted to be 118. ABG; pH 7.44, pCO2 of 51. INR slightly therapeutic, INR showed 1.8. Hemoglobin A1c from January of 2017 was noted to be 6.1. EKG as per my interpretation, normal sinus rhythm, negative ischemia. Chest x-ray showed improving bibasilar opacities, small right pleural effusion. ASSESSMENT: 1. Acute on chronic hypoxemic respiratory failure secondary to chronic obstructive pulmonary disease exacerbation secondary to HCAP (dialysis patient) possible aspiration pneumonia no sepsis. 2. Hypertension, slightly elevated. 3. Past tobacco abuse. 4. Peripheral vascular disease as per records. 5. Acute on chronic anemia, hemoglobin drop from baseline secondary to end stage renal disease. FOBT negative at the ER 6. DM2, insulin requiring, well controlled as of recent inpatient HgA1c. 7. End stage renal disease on hemodialysis. 8. Paroxysmal atrial fibrillation, NSR on Coumadin. INR slightly subtherapeutic. PLAN: PCU supplemental O2 Augmentin, nebs, steroids. Swallow evaluation. Aspiration precautions for now. Basal insulin, ISS BG goal 140-180, Follow H&H, transfuse pRBC for hemoglobin less than 7 and/or symptomatic anemia. Nephrology consult RE dialysis management. PT, OT eval. DVT prophylaxis, Coumadin INR 2-3. Full code. MTDD
[2017-03-01 06:47] LABS: BASO % 0.2 %; BASO ABS # 0.01 K/uL (0-0.2); EOS % 0.2 %; HEMATOCRIT 26.6 % (37-47); IG% 0.7 %; LYMPH % 4.1 %; LYMPH ABS # 0.23 K/uL (1.2-3.4); MEAN CELL VOLUME 113.7 fL (80-100); MEAN CORPUSCULAR HGB CONC 30.8 g/dl (32-36); MEAN PLATELET VOLUME 9.9 fL (7.4-10.4); MONO % 1.4 %; NEUT % 93.4 %; PLATELET COUNT 179 K/uL (130-400); RED BLOOD COUNT 2.34 M/uL (4.2-5.4); WHITE BLOOD COUNT 5.61 K/uL (4.8-10.8)
[2017-03-01 06:54] LABS: INR 1.7 (0.9-1.1); PROTHROMBIN TIME (PATIENT) 17.2 SECONDS (9.0-12.0)
[2017-03-01 07:21] LABS: COMPLETE YES
[2017-03-01 07:29] LABS: BLOOD UREA NITROGEN 61 mg/dl (7-18); GLUCOSE 259 mg/dl (70-99)
[2017-03-01 07:30] LABS: BUN/CREATININE RATIO 5.5 (10-20); CALCIUM 9.3 mg/dl (8.5-10.1); CARBON DIOXIDE 32 mmol/L (21-32); CHLORIDE 98 mmol/L (98-107); POTASSIUM 4.4 mmol/L (3.5-5.1); SODIUM 139 mmol/L (136-145)
[2017-03-01] MEDS: METOPROLOL TARTRATE 50 MG TAB PO SCH ×2 (08:53→19:40)
[2017-03-01] MEDS: CALCIUM ACETATE 667MG GELCAP PO SCH ×3 (08:54→17:23)
[2017-03-01] MEDS: NEPHROCAPS PO SCH (08:54)
[2017-03-01] MEDS: DILTIAZEM HCL 120 MG CAPCR PO SCH (08:54)
[2017-03-01] MEDS: AMOXICILLIN/CLAVULANATE TAB 500 MG TAB PO SCH (08:54)
[2017-03-01] MEDS: LOSARTAN POTASSIUM 50 MG TAB PO SCH (08:55)
[2017-03-01] MEDS: FUROSEMIDE 40 MG TAB PO SCH (08:55)
[2017-03-01] MEDS: CLONIDINE HCL 0.1 MG TAB PO SCH ×2 (08:55→19:41)
[2017-03-01] MEDS: PrednisoLONE ACET 1% OP SUSP 5 ML BTL OPL SCH (08:59)
[2017-03-01] MEDS ORDERED: INSULIN GLARGINE SOLOSTAR 100 UNITS/ML 3 ML PEN SC SCH (09:00)
[2017-03-01] MEDS ORDERED: CONSULT PHARMACY PRN (09:00)
[2017-03-01] MEDS ORDERED: FLUTICASONE/SALMETEROL 250/50 (ADVAIR) 14 PUFF/1 INHALER INH SCH (09:00)
[2017-03-01] MEDS: INSULIN ASPART 100 UNITS/ML 3 ML PEN SC SCH ×4 (09:17→21:12)
[2017-03-01] MEDS ORDERED: LIDOCAINE/PRILOCAINE 2.5% EA CRM EXT PRN (09:45)
[2017-03-01] MEDS ORDERED: ALBUMIN HUMAN 25% 12.5 GM/50 ML VIAL IV SCH (10:30)
[2017-03-01] MEDS ORDERED: EPOETIN ALFA 10,000 UNITS/ML VIAL IV. SCH (10:30)
--- NOTE | 2017-03-01 13:03 | NEPHROLOGY CONSULTATION ---
DATE OF CONSULTATION: 03/01/2017 ATTENDING OF RECORD: Dr. Wong. REASON FOR CONSULTATION: End-stage renal disease. HISTORY OF PRESENT ILLNESS: This is a 71-year-old female who dialyzes at the [facility] on Tuesdays, , and Saturdays. Last dialysis treatment was Tuesday and dialyzes through a fistula. The patient also has underlying COPD, on chronic home oxygen and continues to smoke just a couple of cigarettes. She has paroxysmal AFib, on Coumadin as well as peripheral vascular disease and chronic diastolic heart failure. The patient has had several hospitalizations in the past for COPD exacerbations. The patient states that she was feeling very cold over the last couple days and had worsening shortness of breath over the last several days as well. PAST MEDICAL HISTORY: End-stage renal disease, paroxysmal AFib, COPD, peripheral vascular disease, chronic diastolic heart failure, and tobacco abuse. PAST SURGICAL HISTORY: Fistula placement, hysterectomy, cholecystectomy, appendectomy, and cataract surgery. FAMILY HISTORY: Significant for diabetes. SOCIAL HISTORY: Positive tobacco use, although light. No alcohol. No drugs. Lives at home with family. REVIEW OF SYSTEMS: Positive shortness of breath. Positive chills. Positive cough. No chest pain. No nausea or vomiting. No headaches. No blurry vision. No constipation. No rash or itching. All other review of systems otherwise negative. CURRENT MEDICATIONS: Coumadin 5 mg a day, clonidine 0.1 b.i.d., dilt 120 mg daily, Lasix 40 mg daily, Lantus 20 units daily, Cozaar 100 mg daily, Lopressor 50 mg p.o. b.i.d., Nephrocaps daily, prednisone 40 mg daily, and PhosLo 2 p.o. t.i.d. with meals. PHYSICAL EXAMINATION: VITAL SIGNS: Temperature 36.6, pulse 66, respiratory rate 16, blood pressure 161/48, and satting 98% on 6 liters. GENERAL: Awake, alert, and oriented x3. EYES: No scleral icterus. ENT: Moist mucous membranes. NECK: Supple. PULMONARY: Decreased breath sounds at the bases. CARDIAC: Regular rate and rhythm. ABDOMEN: Bowel sounds positive. Soft and nontender. EXTREMITIES: Mild edema. NEUROLOGICALLY: Nonfocal. DERMATOLOGIC: No rash or ulcers noted. LABORATORIES: White count is 5, H&H 8.2 and 26.6, and platelet count is 179. Sodium level is 139, potassium 4.4, chloride is 98, bicarbonate is 32, BUN is 61, creatinine is 11, glucose 259, and calcium 9.3. Troponin is negative. ProBNP 22,000. INR is 1.7. VBG on admission showed a pH of 7.44, pCO2 of 51, pO2 of 60 and bicarbonate of 34. Chest x-ray shows persistent, but improving bibasilar airspace opacities with a small right pleural effusion. IMPRESSION AND PLAN: 1. End-stage renal disease. Today is her regular dialysis treatment day. I feel her shortness of breath is mostly chronic obstructive pulmonary disease in origin; however, we will try to optimize her volume status as best as possible. We will use albumin to try to remove more fluid, although she tends to cramp quite easily and does not remove fluid easily. 2. Anemia of renal failure. Hemoglobin levels are lower than goal of 10-11. We will redose Procrit accordingly. 3. Renal osteodystrophy. We will continue the patient's phosphate binders and check phosphorus levels intermittently throughout this hospitalization. [facility]
[2017-03-01] MEDS: CLAVULANATE PO SCH ×2 (13:29→17:23)
[2017-03-01] MEDS: AMOXICILLIN PO SCH ×2 (13:29→17:23)
--- NOTE | 2017-03-01 15:44 | Progress Note ---
Medicine Progress Note Date & Time of Visit: Mar 01, 2017 at 15:44 . Subjective No fever. Occasional nonproductive cough. Less SOB. No anginal symptoms. No nausea, vomiting, diarrhea. Blood sugars running high; declined insulin last night. . Objective Last 8 Hrs Date Time Temp Pulse Resp B/P (MAP) Pulse Ox O2 Delivery O2 Flow Rate FiO2 03/01/17 15:30 66 144/68 03/01/17 15:23 36.5 72 22 142/63 (89) 93 Nasal Cannula 4.0 03/01/17 15:15 72 142/63 03/01/17 15:00 67 139/63 03/01/17 14:45 62 138/62 03/01/17 14:45 65 16 96 Nasal Cannula 4.0 03/01/17 14:30 63 139/54 03/01/17 14:15 63 132/50 03/01/17 14:00 64 126/64 03/01/17 13:45 60 153/60 03/01/17 13:30 62 153/60 03/01/17 13:15 60 156/80 03/01/17 13:00 60 152/76 03/01/17 12:53 Nasal Cannula 4.0 03/01/17 12:45 60 158/68 03/01/17 12:29 36.5 62 146/66 (92) 03/01/17 11:51 36.9 76 18 152/69 (96) 97 03/01/17 08:00 Nasal Cannula 5.0 03/01/17 07:45 66 16 98 Nasal Cannula 6.0 Physical Exam: General- lying in bed, no distress Lungs- mild wheezing, few rhonchi Heart- RRR, no gallop appreciated Abdomen- + BS, soft, nontender Extremities- trace pretibial edema; no calf tenderness Skin- warm and dry Neuro- alert . Laboratory Results: Last 24 Hours Test 02/28/17 19:48 03/01/17 00:49 03/01/17 05:55 03/01/17 06:42 White Blood Count 5.61 K/uL 5.61 K/uL Red Blood Count 2.18 M/uL 2.34 M/uL Hemoglobin 7.6 g/dL 8.2 g/dL Hematocrit 25.0 % 26.6 % Mean Corpuscular Volume 114.7 fL 113.7 fL Mean Corpuscular Hemoglobin 34.9 pg 35.0 pg Mean Corpuscular Hemoglobin Concent 30.4 g/dl 30.8 g/dl Platelet Count 180 K/uL 179 K/uL Mean Platelet Volume 10.2 fL 9.9 fL Neutrophils (%) (Auto) 77.8 % 93.4 % Lymphocytes (%) (Auto) 11.1 % 4.1 % Monocytes (%) (Auto) 7.3 % 1.4 % Eosinophils (%) (Auto) 2.9 % 0.2 % Basophils (%) (Auto) 0.5 % 0.2 % Neutrophils # (Auto) 4.37 K/uL 5.24 K/uL Lymphocytes # (Auto) 0.62 K/uL 0.23 K/uL Monocytes # (Auto) 0.41 K/uL 0.08 K/uL Eosinophils # (Auto) 0.16 K/uL 0.01 K/uL Basophils # (Auto) 0.03 K/uL 0.01 K/uL RDW Standard Deviation 71.2 fL 68.9 fL RDW Coefficient of Variation 17.4 % 17.0 % Immature Granulocyte % (Auto) 0.4 % 0.7 % Immature Granulocyte # (Auto) 0.02 K/uL 0.04 K/uL Macrocytosis PRESENT PRESENT Prothrombin Time 18.3 SECONDS 17.2 SECONDS Prothromb Time International Ratio 1.8 1.7 Activated Partial Thromboplast Time 32.7 SECONDS Partial Thromboplastin Ratio 1.3 Venous Blood pH 7.44 Venous Blood Partial Pressure CO2 51 mmHg Venous Blood Partial Pressure O2 60 mmHg Venous Blood HCO3 34 mmol/L Venous Blood Oxygen Saturation 87.7 % Venous Blood Base Excess 8.7 mEq/L Sodium Level 141 mmol/L 139 mmol/L Potassium Level 3.9 mmol/L 4.4 mmol/L Chloride Level 99 mmol/L 98 mmol/L Carbon Dioxide Level 34 mmol/L 32 mmol/L Anion Gap 9.0 mmol/L 9.0 mmol/L Blood Urea Nitrogen 53 mg/dl 61 mg/dl Creatinine 10.10 mg/dl 11.10 mg/dl Est Creatinine Clear Calc Drug Dose 6.3 ml/min 5.7 ml/min Estimated GFR () 4.1 3.6 Estimated GFR (Non- 3.5 3.1 BUN/Creatinine Ratio 5.2 5.5 Random Glucose 118 mg/dl 259 mg/dl Calcium Level 9.4 mg/dl 9.3 mg/dl Total Bilirubin 0.7 mg/dl Aspartate Amino Transf (AST/SGOT) 21 U/L Alanine Aminotransferase (ALT/SGPT) 34 U/L Alkaline Phosphatase 89 U/L Troponin I 0.023 ng/ml < 0.015 ng/ml Pro-B-Type Natriuretic Peptide 94719 pg/ml Total Protein 6.5 gm/dl Albumin 3.4 gm/dl Globulin 3.1 gm/dl Albumin/Globulin Ratio 1.1 Bedside Glucose 200 mg/dl 266 mg/dl Test 03/01/17 11:17 Bedside Glucose 297 mg/dl Assessment & Plan EXACERBATION OF COPD Probably secondary to lower respiratory tract infection. Received IV methylprednisolone; transitioned to oral steroid therapy with prednisone. Continue bronchodilators. Continue antibiotics as discussed below. PROBABLE PNEUMONIA Chest x-ray showed bibasilar densities. Suspected pneumonia. Received azithromycin and IV ampicillin / sulbactam. Transitioned to oral therapy with amoxicillin / clavulanic acid. PAROXYSMAL ATRIAL FIBRILLATION Continue metoprolol and warfarin. HYPERTENSION Continue metoprolol, losartan, clonidine. CKD V Hemodialysis as directed by Nephrology. DM TYPE 2 Generally well-controlled. Hgb A1C 6.1 on 02/01/17. FBS this morning = 266. Blood sugars elevated due to acute illness + glucocorticoids. Titrate insulin per protocol. ANEMIA Hgb 7.6 on admission. Anemia of chronic kidney disease. Stools heme neg in ED. Hgb today = 8.2. Management per Nephrology. VTE PROPHYLAXIS Continue warfarin. Ambulate. DISPOSITION Expected discharge to home. Family Medicine follow-up with Dr. Armando. . Current Inpatient Medications: Current Inpatient Medications Medications (Trade) Dose Ordered Sig/Joan Route Start Time Stop Time Status Last Admin Dose Admin Acetaminophen (Tylenol Tab) 650 mg Q4H PRN PO 02/28/17 23:45 03/30/17 23:44 Nitroglycerin (Nitrostat Tab) 0.4 mg UD PRN SL 02/28/17 23:45 03/30/17 23:44 Insulin Aspart (novoLOG ASPART) SLIDING SCALE If C... ACHS SC 03/01/17 07:00 03/31/17 06:59 03/01/17 12:14 3 UNITS Glucose (Glucose 40% Gel) 15-30 GRAMS 15 GRAMS... UD PRN PO 02/28/17 23:45 03/30/17 23:44 Glucose (Glucose Chew Tab) 4-8 Tablets 4 Tabl... UD PRN PO 02/28/17 23:45 03/30/17 23:44 Dextrose (Dextrose 50% 50ML Syringe) 25-50ML OF 50% DW IV FOR... UD PRN IV 02/28/17 23:45 03/30/17 23:44 Glucagon (Glucagon Inj) 1 mg UD PRN SQ 02/28/17 23:45 03/30/17 23:44 Calcium Acetate (Phoslo Cap) 1,334 mg TIDM PO 03/01/17 07:30 03/31/17 07:59 03/01/17 12:17 1,334 MG Clonidine HCl (Catapres Tab) 0.1 mg BID PO 03/01/17 09:00 03/31/17 08:59 03/01/17 08:55 0.1 MG Diltiazem HCl (Cardizem Cd Cap) 120 mg QAM PO 03/01/17 09:00 03/31/17 08:59 03/01/17 08:54 120 MG Furosemide (Lasix Tab) 40 mg DAILY PO 03/01/17 09:00 03/31/17 08:59 03/01/17 08:55 40 MG Insulin Glargine (Lantus Solostar Pen) 20 units QAM SC 03/01/17 09:00 03/31/17 08:59 03/01/17 09:18 20 UNITS Miscellaneous Information (Order Awaiting Action) 1 ea QS N/A 03/01/17 08:00 03/31/17 07:59 Losartan Potassium (coZAAR TAB) 100 mg DAILY PO 03/01/17 09:00 03/31/17 08:59 03/01/17 08:55 100 MG Metoprolol Tartrate (Lopressor Tab) 50 mg BID PO 03/01/17 09:00 03/31/17 08:59 03/01/17 08:53 50 MG Prednisolone Acetate (Pred Forte 1% Oph Susp) 1 drops DAILY OPL 03/01/17 09:00 03/31/17 08:59 03/01/17 08:59 1 DROPS Vitamin B Complex/ Vit C/Folic Acid (Nephrocaps) 1 cap DAILY PO 03/01/17 09:00 03/31/17 08:59 03/01/17 08:54 1 CAP Tramadol HCl (Ultram Tab) 25 mg Q6H PRN PO 02/28/17 23:45 03/30/17 23:44 Hydromorphone HCl (Dilaudid Inj) 0.5 mg Q6H PRN IV 02/28/17 23:45 03/14/17 23:44 Prochlorperazine Edisylate 5 mg/ Syringe 5 ml @ 5 mls/min Q6H PRN IV 02/28/17 23:45 03/30/17 23:44 Prednisone (PredniSONE TAB) 40 mg DAILY PO 03/01/17 09:00 03/06/17 08:59 03/01/17 08:53 40 MG Miscellaneous Information (Pharmacy Consult) 1 ea UD PRN N/A 03/01/17 09:00 03/31/17 08:59 Warfarin Sodium (Coumadin Tab) 5 mg DAILY@16 PO 03/01/17 16:00 03/31/17 15:59 Miscellaneous Information (Pending Order) 1 ea DAILY@10 N/A 03/01/17 10:00 03/31/17 09:59 03/01/17 10:00 1 EA Ipratropium [place] (Atrovent 0.02% 0.5MG/2.5ML Neb) 0.5 mg Q6R INH 03/01/17 03:00 03/31/17 02:59 03/01/17 14:45 0.5 MG Levalbuterol (Xopenex 1.25MG/ 0.5ML Neb) 1.25 mg Q6R INH 03/01/17 03:00 03/31/17 02:59 03/01/17 14:45 1.25 MG Ipratropium [place] (Atrovent 0.02% 0.5MG/2.5ML Neb) 0.5 mg Q4H PRN INH 03/01/17 01:00 03/31/17 00:59 Levalbuterol (Xopenex 1.25MG/ 0.5ML Neb) 1.25 mg Q4H PRN INH 03/01/17 01:00 03/31/17 00:59 Amoxicillin/ Clavulanate Potassium (Augmentin Tab) 500 mg QDB PO 03/01/17 07:30 03/08/17 07:29 03/01/17 08:54 500 MG Lidocaine/ Prilocaine (Emla 2.5% Crm) 1 ea UD PRN EXT 03/01/17 09:45 03/31/17 09:44 03/01/17 12:16 1 EA Albumin Human (Albumin 25%) 25 gm 1030 IV 03/01/17 10:30 03/01/17 18:00 03/01/17 12:17 25 GM Amoxicillin/ Clavulanate Potassium (Augmentin Tab) 250 mg TODAY@1200,1600 PO 03/01/17 12:00 03/01/17 16:01 03/01/17 13:29 250 MG
[2017-03-01] MEDS: WARFARIN SOD 5 MG TAB PO SCH (17:23)
[2017-03-02] VITALS (13 sets, daily range): BP systolic 127–162; BP diastolic 63–75; PULSE 60–79; TEMP 36.5–36.8; O2SAT 89–97
[2017-03-02] MEDS ORDERED: INSULIN ASPART 100 UNITS/ML 3 ML PEN SC ONE (01:00)
[2017-03-02] MEDS: LEVALBUTEROL 1.25MG/0.5ML NEB INH SCH ×4 (02:21→18:54)
[2017-03-02] MEDS: IPRATROPIUM BROMIDE NEB SOLN 0.02% 2.5 ML VIAL INH SCH ×4 (02:21→18:54)
[2017-03-02 06:02] LABS: BASO % 0.3 %; BASO ABS # 0.02 K/uL (0-0.2); EOS % 0.3 %; HEMATOCRIT 24.2 % (37-47); IG% 0.5 %; LYMPH % 9.7 %; LYMPH ABS # 0.61 K/uL (1.2-3.4); MEAN CELL VOLUME 115.8 fL (80-100); MEAN CORPUSCULAR HEMOGLOBIN 35.4 pg (25-34); MEAN CORPUSCULAR HGB CONC 30.6 g/dl (32-36); MEAN PLATELET VOLUME 10.1 fL (7.4-10.4); MONO % 9.7 %; NEUT % 79.5 %; PLATELET COUNT 161 K/uL (130-400); RED BLOOD COUNT 2.09 M/uL (4.2-5.4); WHITE BLOOD COUNT 6.29 K/uL (4.8-10.8)
[2017-03-02 06:12] LABS: INR 1.6 (0.9-1.1); PROTHROMBIN TIME (PATIENT) 16.8 SECONDS (9.0-12.0)
[2017-03-02 06:34] LABS: BUN/CREATININE RATIO 5.4 (10-20); CALCIUM 8.3 mg/dl (8.5-10.1); CREATININE 8.5 mg/dl (0.60-1.20); POTASSIUM 4.3 mmol/L (3.5-5.1)
[2017-03-02 06:44] LABS: ANISOCYTOSIS PRESENT; COMPLETE YES; POLYCHROMASIA 1+
[2017-03-02] MEDS: INSULIN ASPART 100 UNITS/ML 3 ML PEN SC SCH ×4 (08:09→20:44)
[2017-03-02] MEDS: INSULIN GLARGINE SOLOSTAR 100 UNITS/ML 3 ML PEN SC SCH (08:09)
[2017-03-02] MEDS: NEPHROCAPS PO SCH (08:12)
[2017-03-02] MEDS: CALCIUM ACETATE 667MG GELCAP PO SCH ×3 (08:12→17:07)
[2017-03-02] MEDS: LOSARTAN POTASSIUM 50 MG TAB PO SCH (08:12)
[2017-03-02] MEDS: METOPROLOL TARTRATE 50 MG TAB PO SCH ×2 (08:13→20:41)
[2017-03-02] MEDS: LACTOBACILLUS ACIDOPHILUS (FLORANEX) TAB PO SCH (08:13)
[2017-03-02] MEDS: FUROSEMIDE 40 MG TAB PO SCH (08:14)
[2017-03-02] MEDS: DILTIAZEM HCL 120 MG CAPCR PO SCH (08:14)
[2017-03-02] MEDS: AMOXICILLIN/CLAVULANATE TAB 500 MG TAB PO SCH (08:15)
[2017-03-02] MEDS: PrednisoLONE ACET 1% OP SUSP 5 ML BTL OPL SCH (08:15)
[2017-03-02] MEDS: CLONIDINE HCL 0.1 MG TAB PO SCH ×2 (08:18→20:41)
--- NOTE | 2017-03-02 08:34 | Nephrology Progress Note ---
Nephrology Progress Note Date of Service: Mar 02, 2017. Subjective 72 yo female with esrd on dialysis t/h/s and underwent dialysis yesterday. went well. pt continues to have wheezing and dry cough. had difficulty sleeping last night. pt does not want a dialysis treatment today. did actually stop smoking after last hospitilization. currently on steroids and nebs. Objective Date Time Temp Pulse Resp B/P (MAP) Pulse Ox O2 Delivery O2 Flow Rate FiO2 03/02/17 08:08 36.8 63 18 129/68 (88) 95 03/02/17 07:19 66 16 97 Nasal Cannula 4.0 03/02/17 04:00 Nasal Cannula 3.0 03/02/17 03:20 36.6 61 20 127/66 (86) 96 Nasal Cannula 4.0 03/02/17 02:21 61 16 89 Nasal Cannula 3.0 03/02/17 00:00 36.8 70 20 137/75 (95) 90 Nasal Cannula 3.0 03/02/17 00:00 Nasal Cannula 3.0 03/01/17 20:00 Nasal Cannula 3.0 03/01/17 19:22 37.4 71 22 171/69 (103) 100 Nasal Cannula 3.0 03/01/17 19:16 73 16 91 Nasal Cannula 4.0 03/01/17 16:35 Nasal Cannula 3.0 03/01/17 15:47 36.5 67 166/72 (103) 03/01/17 15:30 66 144/68 03/01/17 15:23 36.5 72 22 142/63 (89) 93 Nasal Cannula 4.0 03/01/17 15:15 72 142/63 03/01/17 15:00 67 139/63 03/01/17 14:45 62 138/62 03/01/17 14:45 65 16 96 Nasal Cannula 4.0 03/01/17 14:30 63 139/54 03/01/17 14:15 63 132/50 03/01/17 14:00 64 126/64 03/01/17 13:45 60 153/60 03/01/17 13:30 62 153/60 03/01/17 13:15 60 156/80 03/01/17 13:00 60 152/76 03/01/17 12:53 Nasal Cannula 4.0 03/01/17 12:45 60 158/68 03/01/17 12:29 36.5 62 146/66 (92) 03/01/17 11:51 36.9 76 18 152/69 (96) 97 Physical Exam: General-[id number] Eyes-no scleral icterus ENT-mmm Neck-supple Lungs-decreased at bases with basilar rales Heart-rrr Abdomen-bs+ s/nt/nd Extremities-no c/c/e Neuro-nonfocal Current Inpatient Medications Medications (Trade) Dose Ordered Sig/Joan Route Start Time Stop Time Status Last Admin Dose Admin Acetaminophen (Tylenol Tab) 650 mg Q4H PRN PO 02/28/17 23:45 03/30/17 23:44 Nitroglycerin (Nitrostat Tab) 0.4 mg UD PRN SL 02/28/17 23:45 03/30/17 23:44 Insulin Aspart (novoLOG ASPART) SLIDING SCALE If C... ACHS SC 03/01/17 07:00 03/31/17 06:59 03/02/17 08:09 3 UNITS Glucose (Glucose 40% Gel) 15-30 GRAMS 15 GRAMS... UD PRN PO 02/28/17 23:45 03/30/17 23:44 Glucose (Glucose Chew Tab) 4-8 Tablets 4 Tabl... UD PRN PO 02/28/17 23:45 03/30/17 23:44 Dextrose (Dextrose 50% 50ML Syringe) 25-50ML OF 50% DW IV FOR... UD PRN IV 02/28/17 23:45 03/30/17 23:44 Glucagon (Glucagon Inj) 1 mg UD PRN SQ 02/28/17 23:45 03/30/17 23:44 Calcium Acetate (Phoslo Cap) 1,334 mg TIDM PO 03/01/17 07:30 03/31/17 07:59 03/02/17 08:12 1,334 MG Clonidine HCl (Catapres Tab) 0.1 mg BID PO 03/01/17 09:00 03/31/17 08:59 03/02/17 08:18 0.1 MG Diltiazem HCl (Cardizem Cd Cap) 120 mg QAM PO 03/01/17 09:00 03/31/17 08:59 03/02/17 08:14 120 MG Furosemide (Lasix Tab) 40 mg DAILY PO 03/01/17 09:00 03/31/17 08:59 03/02/17 08:14 40 MG Losartan Potassium (coZAAR TAB) 100 mg DAILY PO 03/01/17 09:00 03/31/17 08:59 03/02/17 08:12 100 MG Metoprolol Tartrate (Lopressor Tab) 50 mg BID PO 03/01/17 09:00 03/31/17 08:59 03/02/17 08:13 50 MG Prednisolone Acetate (Pred Forte 1% Oph Susp) 1 drops DAILY OPL 03/01/17 09:00 03/31/17 08:59 03/02/17 08:15 1 DROPS Vitamin B Complex/ Vit C/Folic Acid (Nephrocaps) 1 cap DAILY PO 03/01/17 09:00 03/31/17 08:59 03/02/17 08:12 1 CAP Tramadol HCl (Ultram Tab) 25 mg Q6H PRN PO 02/28/17 23:45 03/30/17 23:44 Hydromorphone HCl (Dilaudid Inj) 0.5 mg Q6H PRN IV 02/28/17 23:45 03/14/17 23:44 Prochlorperazine Edisylate 5 mg/ Syringe 5 ml @ 5 mls/min Q6H PRN IV 02/28/17 23:45 03/30/17 23:44 Prednisone (PredniSONE TAB) 40 mg DAILY PO 03/01/17 09:00 03/06/17 08:59 03/02/17 08:12 40 MG Miscellaneous Information (Pharmacy Consult) 1 ea UD PRN N/A 03/01/17 09:00 03/31/17 08:59 Warfarin Sodium (Coumadin Tab) 5 mg DAILY@16 PO 03/01/17 16:00 03/31/17 15:59 03/01/17 17:23 5 MG Miscellaneous Information (Pending Order) 1 ea DAILY@10 N/A 03/01/17 10:00 03/31/17 09:59 03/01/17 10:00 1 EA Ipratropium [place] (Atrovent 0.02% 0.5MG/2.5ML Neb) 0.5 mg Q6R INH 03/01/17 03:00 03/31/17 02:59 03/02/17 07:19 0.5 MG Levalbuterol (Xopenex 1.25MG/ 0.5ML Neb) 1.25 mg Q6R INH 03/01/17 03:00 03/31/17 02:59 03/02/17 07:19 1.25 MG Ipratropium [place] (Atrovent 0.02% 0.5MG/2.5ML Neb) 0.5 mg Q4H PRN INH 03/01/17 01:00 03/31/17 00:59 Levalbuterol (Xopenex 1.25MG/ 0.5ML Neb) 1.25 mg Q4H PRN INH 03/01/17 01:00 03/31/17 00:59 Amoxicillin/ Clavulanate Potassium (Augmentin Tab) 500 mg QDB PO 03/01/17 07:30 03/08/17 07:29 03/02/17 08:15 500 MG Lidocaine/ Prilocaine (Emla 2.5% Crm) 1 ea UD PRN EXT 03/01/17 09:45 03/31/17 09:44 03/01/17 12:16 1 EA Lactobacillus Acidophilus (Floranex Tab) 4 tab DAILY PO 03/02/17 09:00 04/01/17 08:59 03/02/17 08:13 4 TAB Insulin Glargine (Lantus Solostar Pen) BSG UNITS LANTUS... QAM SC 03/02/17 09:00 03/31/17 08:59 03/02/17 08:09 26 UNITS Last 24 Hours Test 03/01/17 11:17 03/01/17 16:14 03/01/17 20:15 03/02/17 01:01 Bedside Glucose 297 mg/dl 206 mg/dl 289 mg/dl 267 mg/dl Test 03/02/17 05:33 03/02/17 06:42 White Blood Count 6.29 K/uL Red Blood Count 2.09 M/uL Hemoglobin 7.4 g/dL Hematocrit 24.2 % Mean Corpuscular Volume 115.8 fL Mean Corpuscular Hemoglobin 35.4 pg Mean Corpuscular Hemoglobin Concent 30.6 g/dl Platelet Count 161 K/uL Mean Platelet Volume 10.1 fL Neutrophils (%) (Auto) 79.5 % Lymphocytes (%) (Auto) 9.7 % Monocytes (%) (Auto) 9.7 % Eosinophils (%) (Auto) 0.3 % Basophils (%) (Auto) 0.3 % Neutrophils # (Auto) 5.00 K/uL Lymphocytes # (Auto) 0.61 K/uL Monocytes # (Auto) 0.61 K/uL Eosinophils # (Auto) 0.02 K/uL Basophils # (Auto) 0.02 K/uL RDW Standard Deviation 73.8 fL RDW Coefficient of Variation 17.6 % Immature Granulocyte % (Auto) 0.5 % Immature Granulocyte # (Auto) 0.03 K/uL Nucleated RBC Absolute Count (auto) 0.05 K/uL Nucleated Red Blood Cells % 0.8 % Polychromasia 1+ Anisocytosis PRESENT Prothrombin Time 16.8 SECONDS Prothromb Time International Ratio 1.6 Sodium Level 138 mmol/L Potassium Level 4.3 mmol/L Chloride Level 98 mmol/L Carbon Dioxide Level 32 mmol/L Anion Gap 8.0 mmol/L Blood Urea Nitrogen 46 mg/dl Creatinine 8.50 mg/dl Est Creatinine Clear Calc Drug Dose 7.3 ml/min Estimated GFR () 5.0 Estimated GFR (Non- 4.3 BUN/Creatinine Ratio 5.4 Random Glucose 156 mg/dl Calcium Level 8.3 mg/dl Bedside Glucose 157 mg/dl Assessment & Plan ESRD-offered dialysis today for her to help with any chf component to her breathing. pt politely declined and will plan on dialysis again tomorrow. Anemia of renal failure-could have element of procrit resistance, hg levels trending down. monitor for now. if hg levels continue to trend down, consider transfusion. for now, redose procrit again on dialysis tomorrow.
[2017-03-02] MEDS ORDERED: INSULIN GLARGINE SOLOSTAR 100 UNITS/ML 3 ML PEN SC SCH (09:00)
[2017-03-02] MEDS: WARFARIN SOD 5 MG TAB PO SCH (17:07)
[2017-03-02 18:46] LABS: URINE APPEARANCE CLEAR (CLEAR); URINE BILIRUBIN NEG (NEG); URINE COLOR YELLOW; URINE EPITHELIAL CELL AUTO >30 /lpf (0-5); URINE NITRITE NEG (NEG); URINE PH >= 9.0 (4.5-7.5); URINE SPECIFIC GRAVITY 1.017 (1.000-1.030); UROBILINOGEN NEG (NEG)
--- NOTE | 2017-03-02 19:23 | Progress Note ---
Medicine Progress Note Date & Time of Visit: Mar 02, 2017 at ~ 16:00 . Subjective Persistent cough. No fever. Chest discomfort with coughing. No nausea, vomiting, diarrhea. Hemodialysis performed yesterday, not today. . Objective Last 8 Hrs Date Time Temp Pulse Resp B/P (MAP) Pulse Ox O2 Delivery O2 Flow Rate FiO2 03/02/17 18:56 36.8 61 18 152/69 (96) 96 Nasal Cannula 3.0 03/02/17 18:55 68 16 91 Nasal Cannula 3.0 03/02/17 18:21 36.8 60 20 91 3.0 03/02/17 16:01 Nasal Cannula 3.0 03/02/17 15:08 36.8 60 20 149/65 (93) 91 Nasal Cannula 3.0 03/02/17 14:21 71 18 90 Nasal Cannula 3.0 03/02/17 12:14 Nasal Cannula 3.0 03/02/17 11:38 36.8 79 18 145/65 (91) 95 Physical Exam: General- lying in bed, no distress Lungs- diffuse mild wheezing Heart- RRR, no gallop appreciated; no JVD Abdomen- + BS, soft, nontender Extremities- trace pretibial edema; no calf tenderness Skin- warm and dry Neuro- alert . Laboratory Results: Last 24 Hours Test 03/01/17 20:15 03/02/17 01:01 03/02/17 05:33 03/02/17 06:42 Bedside Glucose 289 mg/dl 267 mg/dl 157 mg/dl White Blood Count 6.29 K/uL Red Blood Count 2.09 M/uL Hemoglobin 7.4 g/dL Hematocrit 24.2 % Mean Corpuscular Volume 115.8 fL Mean Corpuscular Hemoglobin 35.4 pg Mean Corpuscular Hemoglobin Concent 30.6 g/dl Platelet Count 161 K/uL Mean Platelet Volume 10.1 fL Neutrophils (%) (Auto) 79.5 % Lymphocytes (%) (Auto) 9.7 % Monocytes (%) (Auto) 9.7 % Eosinophils (%) (Auto) 0.3 % Basophils (%) (Auto) 0.3 % Neutrophils # (Auto) 5.00 K/uL Lymphocytes # (Auto) 0.61 K/uL Monocytes # (Auto) 0.61 K/uL Eosinophils # (Auto) 0.02 K/uL Basophils # (Auto) 0.02 K/uL RDW Standard Deviation 73.8 fL RDW Coefficient of Variation 17.6 % Immature Granulocyte % (Auto) 0.5 % Immature Granulocyte # (Auto) 0.03 K/uL Nucleated RBC Absolute Count (auto) 0.05 K/uL Nucleated Red Blood Cells % 0.8 % Polychromasia 1+ Anisocytosis PRESENT Prothrombin Time 16.8 SECONDS Prothromb Time International Ratio 1.6 Sodium Level 138 mmol/L Potassium Level 4.3 mmol/L Chloride Level 98 mmol/L Carbon Dioxide Level 32 mmol/L Anion Gap 8.0 mmol/L Blood Urea Nitrogen 46 mg/dl Creatinine 8.50 mg/dl Est Creatinine Clear Calc Drug Dose 7.3 ml/min Estimated GFR () 5.0 Estimated GFR (Non- 4.3 BUN/Creatinine Ratio 5.4 Random Glucose 156 mg/dl Calcium Level 8.3 mg/dl Test 03/02/17 11:18 03/02/17 16:14 03/02/17 18:15 Bedside Glucose 274 mg/dl 246 mg/dl Assessment & Plan EXACERBATION OF COPD Probably secondary to lower respiratory tract infection. Received IV methylprednisolone; transitioned to oral steroid therapy with prednisone. Continue bronchodilators. Continue antibiotics as discussed below. PROBABLE PNEUMONIA Chest x-ray showed bibasilar densities. Suspected pneumonia. Received azithromycin and IV ampicillin / sulbactam. Transitioned to oral therapy with amoxicillin / clavulanic acid. PAROXYSMAL ATRIAL FIBRILLATION Continue metoprolol and warfarin. HYPERTENSION Blood pressure this morning 129/68. Continue metoprolol, losartan, clonidine. CKD V Hemodialysis as directed by Nephrology. DM TYPE 2 Generally well-controlled. Hgb A1C 6.1 on 02/01/17. Blood sugars elevated due to acute illness + glucocorticoids. Lantus/NovoLog per protocol. FBS this morning = 157. ANEMIA Hgb 7.6 on admission. Anemia of chronic kidney disease. Stools heme neg in ED. Hgb today = 7.4. Management per Nephrology. VTE PROPHYLAXIS Continue warfarin. Ambulate. DISPOSITION Expected discharge to home. Family Medicine follow-up with Dr. Armando. . Consultants: Nephrology . Procedures: Cardiac monitoring Hemodialysis . Current Inpatient Medications: Current Inpatient Medications Medications (Trade) Dose Ordered Sig/Joan Route Start Time Stop Time Status Last Admin Dose Admin Acetaminophen (Tylenol Tab) 650 mg Q4H PRN PO 12/4/17 23:45 03/30/17 23:44 Nitroglycerin (Nitrostat Tab) 0.4 mg UD PRN SL 02/28/17 23:45 03/30/17 23:44 Insulin Aspart (novoLOG ASPART) SLIDING SCALE If C... ACHS SC 03/01/17 07:00 03/31/17 06:59 03/02/17 17:16 9 UNITS Glucose (Glucose 40% Gel) 15-30 GRAMS 15 GRAMS... UD PRN PO 02/28/17 23:45 03/30/17 23:44 Glucose (Glucose Chew Tab) 4-8 Tablets 4 Tabl... UD PRN PO 02/28/17 23:45 03/30/17 23:44 Dextrose (Dextrose 50% 50ML Syringe) 25-50ML OF 50% DW IV FOR... UD PRN IV 02/28/17 23:45 03/30/17 23:44 Glucagon (Glucagon Inj) 1 mg UD PRN SQ 02/28/17 23:45 03/30/17 23:44 Calcium Acetate (Phoslo Cap) 1,334 mg TIDM PO 03/01/17 07:30 03/31/17 07:59 03/02/17 17:07 1,334 MG Clonidine HCl (Catapres Tab) 0.1 mg BID PO 03/01/17 09:00 03/31/17 08:59 03/02/17 08:18 0.1 MG Diltiazem HCl (Cardizem Cd Cap) 120 mg QAM PO 03/01/17 09:00 03/31/17 08:59 03/02/17 08:14 120 MG Furosemide (Lasix Tab) 40 mg DAILY PO 03/01/17 09:00 03/31/17 08:59 03/02/17 08:14 40 MG Losartan Potassium (coZAAR TAB) 100 mg DAILY PO 03/01/17 09:00 03/31/17 08:59 03/02/17 08:12 100 MG Metoprolol Tartrate (Lopressor Tab) 50 mg BID PO 03/01/17 09:00 03/31/17 08:59 03/02/17 08:13 50 MG Prednisolone Acetate (Pred Forte 1% Oph Susp) 1 drops DAILY OPL 03/01/17 09:00 03/31/17 08:59 03/02/17 08:15 1 DROPS Vitamin B Complex/ Vit C/Folic Acid (Nephrocaps) 1 cap DAILY PO 03/01/17 09:00 03/31/17 08:59 03/02/17 08:12 1 CAP Tramadol HCl (Ultram Tab) 25 mg Q6H PRN PO 02/28/17 23:45 03/30/17 23:44 Hydromorphone HCl (Dilaudid Inj) 0.5 mg Q6H PRN IV 02/28/17 23:45 03/14/17 23:44 Prochlorperazine Edisylate 5 mg/ Syringe 5 ml @ 5 mls/min Q6H PRN IV 02/28/17 23:45 03/30/17 23:44 Prednisone (PredniSONE TAB) 40 mg DAILY PO 03/01/17 09:00 03/06/17 08:59 03/02/17 08:12 40 MG Miscellaneous Information (Pharmacy Consult) 1 ea UD PRN N/A 03/01/17 09:00 03/31/17 08:59 Warfarin Sodium (Coumadin Tab) 5 mg DAILY@16 PO 03/01/17 16:00 03/31/17 15:59 03/02/17 17:07 5 MG Miscellaneous Information (Pending Order) 1 ea DAILY@10 N/A 03/01/17 10:00 03/31/17 09:59 03/01/17 10:00 1 EA Ipratropium [place] (Atrovent 0.02% 0.5MG/2.5ML Neb) 0.5 mg Q6R INH 03/01/17 03:00 03/31/17 02:59 03/02/17 18:54 0.5 MG Levalbuterol (Xopenex 1.25MG/ 0.5ML Neb) 1.25 mg Q6R INH 03/01/17 03:00 03/31/17 02:59 03/02/17 18:54 1.25 MG Ipratropium [place] (Atrovent 0.02% 0.5MG/2.5ML Neb) 0.5 mg Q4H PRN INH 03/01/17 01:00 1/4/18 00:59 Levalbuterol (Xopenex 1.25MG/ 0.5ML Neb) 1.25 mg Q4H PRN INH 03/01/17 01:00 03/31/17 00:59 Amoxicillin/ Clavulanate Potassium (Augmentin Tab) 500 mg QDB PO 03/01/17 07:30 03/08/17 07:29 03/02/17 08:15 500 MG Lidocaine/ Prilocaine (Emla 2.5% Crm) 1 ea UD PRN EXT 03/01/17 09:45 03/31/17 09:44 03/01/17 12:16 1 EA Lactobacillus Acidophilus (Floranex Tab) 4 tab DAILY PO 03/02/17 09:00 04/01/17 08:59 03/02/17 08:13 4 TAB Insulin Glargine (Lantus Solostar Pen) BSG UNITS LANTUS... QAM SC 03/02/17 09:00 03/31/17 08:59 03/02/17 08:09 26 UNITS Amoxicillin/ Clavulanate Potassium (Augmentin Tab) 250 mg TuThSa@1200,1600 PO 03/03/17 12:00 03/08/17 07:59
[2017-03-02 19:36] LABS: MANUAL MICROSCOPIC REQUIRED? NO; REVIEW REQ? YES
[2017-03-02 19:37] LABS: SULFASALICYLIC ACID POS (NEG)
[2017-03-03] VITALS (22 sets, daily range): BP systolic 147–183; BP diastolic 55–81; PULSE 51–70; TEMP 36.6–36.8; O2SAT 91–98
[2017-03-03] MEDS: LEVALBUTEROL 1.25MG/0.5ML NEB INH SCH ×4 (01:52→18:52)
[2017-03-03] MEDS: IPRATROPIUM BROMIDE NEB SOLN 0.02% 2.5 ML VIAL INH SCH ×4 (01:52→18:52)
[2017-03-03 06:04] LABS: BASO % 0.2 %; BASO ABS # 0.01 K/uL (0-0.2); EOS % 0.3 %; HEMATOCRIT 25.6 % (37-47); IG% 0.9 %; LYMPH % 9.2 %; LYMPH ABS # 0.59 K/uL (1.2-3.4); MEAN CELL VOLUME 115.3 fL (80-100); MEAN CORPUSCULAR HEMOGLOBIN 35.6 pg (25-34); MEAN CORPUSCULAR HGB CONC 30.9 g/dl (32-36); MONO % 7.2 %; NEUT % 82.2 %; PLATELET COUNT 171 K/uL (130-400); RED BLOOD COUNT 2.22 M/uL (4.2-5.4); WHITE BLOOD COUNT 6.42 K/uL (4.8-10.8)
[2017-03-03 06:12] LABS: INR 1.6 (0.9-1.1); PROTHROMBIN TIME (PATIENT) 16.4 SECONDS (9.0-12.0)
[2017-03-03 06:45] LABS: ANISOCYTOSIS PRESENT; COMPLETE YES
[2017-03-03 07:08] LABS: CALCIUM 8.7 mg/dl (8.5-10.1); CREATININE 11.2 mg/dl (0.60-1.20); POTASSIUM 4.4 mmol/L (3.5-5.1)
[2017-03-03] MEDS: PrednisoLONE ACET 1% OP SUSP 5 ML BTL OPL SCH (08:27)
[2017-03-03] MEDS: CLONIDINE HCL 0.1 MG TAB PO SCH ×2 (08:30→19:34)
[2017-03-03] MEDS: METOPROLOL TARTRATE 50 MG TAB PO SCH ×2 (08:30→19:35)
[2017-03-03] MEDS: AMOXICILLIN/CLAVULANATE TAB 500 MG TAB PO SCH (08:30)
[2017-03-03] MEDS: FUROSEMIDE 40 MG TAB PO SCH (08:30)
[2017-03-03] MEDS: DILTIAZEM HCL 120 MG CAPCR PO SCH (08:30)
[2017-03-03] MEDS: LACTOBACILLUS ACIDOPHILUS (FLORANEX) TAB PO SCH (08:31)
[2017-03-03] MEDS: NEPHROCAPS PO SCH (08:31)
[2017-03-03] MEDS: CALCIUM ACETATE 667MG GELCAP PO SCH ×3 (08:31→17:31)
[2017-03-03] MEDS: LOSARTAN POTASSIUM 50 MG TAB PO SCH (08:32)
[2017-03-03] MEDS: INSULIN GLARGINE SOLOSTAR 100 UNITS/ML 3 ML PEN SC SCH (08:37)
[2017-03-03] MEDS: INSULIN ASPART 100 UNITS/ML 3 ML PEN SC SCH ×4 (08:38→21:58)
[2017-03-03] MEDS ORDERED: EPOETIN ALFA 10,000 UNITS/ML VIAL IV. SCH (09:00)
[2017-03-03] MEDS ORDERED: WARFARIN SOD 5 MG TAB PO ONE (10:00)
[2017-03-03] MEDS ORDERED: BENZONATATE 100MG CAP PO PRN (10:00)
[2017-03-03] MEDS: AMOXICILLIN PO SCH ×2 (12:00→17:32)
[2017-03-03] MEDS: CLAVULANATE PO SCH ×2 (12:00→17:32)
[2017-03-03] MEDS: GUAIFENESIN/CODEINE 200MG/20MG 10ML UDC PO SCH ×3 (12:29→21:49)
[2017-03-03] MEDS: ALBUMIN HUMAN 25% 12.5 GM/50 ML VIAL IV SCH ×2 (13:15→14:03)
--- NOTE | 2017-03-03 15:37 | Dialysis Progress Note ---
Nephrology Dialysis Note Date of Service: Mar 03, 2017. Subjective 72 yo female with esrd on dialysis t/h/s and seen on dialysis today. no chest pain or cramping on dialysis. still with eventful nights with wheezing. on prednisone. access working well. Objective Date Time Temp Pulse Resp B/P (MAP) Pulse Ox O2 Delivery O2 Flow Rate FiO2 03/03/17 15:15 56 161/78 03/03/17 15:00 54 167/58 03/03/17 14:45 57 163/57 03/03/17 14:30 52 160/68 03/03/17 14:15 51 148/67 03/03/17 14:00 51 155/67 03/03/17 13:45 51 154/65 03/03/17 13:30 52 152/68 03/03/17 13:15 62 148/64 03/03/17 13:05 55 147/65 03/03/17 12:55 36.6 62 155/63 (93) 03/03/17 11:41 36.6 55 20 160/67 (98) 94 Nasal Cannula 3.0 03/03/17 08:00 92 Nasal Cannula 3.0 03/03/17 07:23 70 16 92 Nasal Cannula 3.0 03/03/17 07:19 36.6 55 18 155/81 (105) 96 Nasal Cannula 3.0 03/03/17 01:52 70 16 91 Nasal Cannula 3.0 03/03/17 00:05 91 Nasal Cannula 3.0 03/02/17 22:47 36.5 65 18 150/63 (92) 92 Nasal Cannula 3.0 03/02/17 20:38 62 162/75 (104) Nasal Cannula 3.0 Humidified Oxygen 03/02/17 18:56 36.8 61 18 152/69 (96) 96 Nasal Cannula 3.0 03/02/17 18:55 68 16 91 Nasal Cannula 3.0 03/02/17 18:21 36.8 60 20 91 3.0 03/02/17 16:01 Nasal Cannula 3.0 Physical Exam: General-aaox3 Eyes-no scleral icterus ENT-mmm Neck-supple Lungs-decreased at right base Heart-[place] Abdomen-bs+ s/nt/nd Extremities-no c/c/e Neuro-nonfocal Current Inpatient Medications Medications (Trade) Dose Ordered Sig/Joan Route Start Time Stop Time Status Last Admin Dose Admin Acetaminophen (Tylenol Tab) 650 mg Q4H PRN PO 02/28/17 23:45 03/30/17 23:44 Nitroglycerin (Nitrostat Tab) 0.4 mg UD PRN SL 02/28/17 23:45 03/30/17 23:44 Insulin Aspart (novoLOG ASPART) SLIDING SCALE If C... ACHS SC 03/01/17 07:00 03/31/17 06:59 03/03/17 12:33 4 UNITS Glucose (Glucose 40% Gel) 15-30 GRAMS 15 GRAMS... UD PRN PO 02/28/17 23:45 03/30/17 23:44 Glucose (Glucose Chew Tab) 4-8 Tablets 4 Tabl... UD PRN PO 02/28/17 23:45 03/30/17 23:44 Dextrose (Dextrose 50% 50ML Syringe) 25-50ML OF 50% DW IV FOR... UD PRN IV 02/28/17 23:45 03/30/17 23:44 Glucagon (Glucagon Inj) 1 mg UD PRN SQ 02/28/17 23:45 03/30/17 23:44 Calcium Acetate (Phoslo Cap) 1,334 mg TIDM PO 03/01/17 07:30 03/31/17 07:59 03/03/17 12:26 1,334 MG Clonidine HCl (Catapres Tab) 0.1 mg BID PO 03/01/17 09:00 03/31/17 08:59 03/03/17 08:30 0.1 MG Diltiazem HCl (Cardizem Cd Cap) 120 mg QAM PO 03/01/17 09:00 03/31/17 08:59 03/03/17 08:30 120 MG Furosemide (Lasix Tab) 40 mg DAILY PO 03/01/17 09:00 03/31/17 08:59 03/03/17 08:30 40 MG Losartan Potassium (coZAAR TAB) 100 mg DAILY PO 03/01/17 09:00 03/31/17 08:59 03/03/17 08:32 100 MG Metoprolol Tartrate (Lopressor Tab) 50 mg BID PO 03/01/17 09:00 03/31/17 08:59 03/03/17 08:30 50 MG Prednisolone Acetate (Pred Forte 1% Oph Susp) 1 drops DAILY OPL 03/01/17 09:00 03/31/17 08:59 03/03/17 08:27 1 DROPS Vitamin B Complex/ Vit C/Folic Acid (Nephrocaps) 1 cap DAILY PO 03/01/17 09:00 03/31/17 08:59 03/03/17 08:31 1 CAP Tramadol HCl (Ultram Tab) 25 mg Q6H PRN PO 02/28/17 23:45 03/30/17 23:44 Hydromorphone HCl (Dilaudid Inj) 0.5 mg Q6H PRN IV 02/28/17 23:45 03/14/17 23:44 Prochlorperazine Edisylate 5 mg/ Syringe 5 ml @ 5 mls/min Q6H PRN IV 02/28/17 23:45 03/30/17 23:44 Prednisone (PredniSONE TAB) 40 mg DAILY PO 03/01/17 09:00 03/06/17 08:59 03/03/17 08:32 40 MG Miscellaneous Information (Pharmacy Consult) 1 ea UD PRN N/A 03/01/17 09:00 03/31/17 08:59 Warfarin Sodium (Coumadin Tab) 5 mg DAILY@16 PO 03/01/17 16:00 03/31/17 15:59 Future Hold 03/02/17 17:07 5 MG Miscellaneous Information (Pending Order) 1 ea DAILY@10 N/A 03/01/17 10:00 03/31/17 09:59 03/01/17 10:00 1 EA Ipratropium [place] (Atrovent 0.02% 0.5MG/2.5ML Neb) 0.5 mg Q6R INH 03/01/17 03:00 03/31/17 02:59 03/03/17 07:23 0.5 MG Levalbuterol (Xopenex 1.25MG/ 0.5ML Neb) 1.25 mg Q6R INH 03/01/17 03:00 03/31/17 02:59 03/03/17 07:23 1.25 MG Ipratropium [place] (Atrovent 0.02% 0.5MG/2.5ML Neb) 0.5 mg Q4H PRN INH 03/01/17 01:00 03/31/17 00:59 Levalbuterol (Xopenex 1.25MG/ 0.5ML Neb) 1.25 mg Q4H PRN INH 03/01/17 01:00 03/31/17 00:59 Amoxicillin/ Clavulanate Potassium (Augmentin Tab) 500 mg QDB PO 03/01/17 07:30 03/08/17 07:29 03/03/17 08:30 500 MG Lidocaine/ Prilocaine (Emla 2.5% Crm) 1 ea UD PRN EXT 03/01/17 09:45 03/31/17 09:44 03/01/17 12:16 1 EA Lactobacillus Acidophilus (Floranex Tab) 4 tab DAILY PO 03/02/17 09:00 04/01/17 08:59 03/03/17 08:31 4 TAB Insulin Glargine (Lantus Solostar Pen) BSG UNITS LANTUS... QAM SC 03/02/17 09:00 03/31/17 08:59 03/03/17 08:37 32 UNITS Amoxicillin/ Clavulanate Potassium (Augmentin Tab) 250 mg TuThSa@1200,1600 PO 03/03/17 12:00 03/08/17 07:59 Epoetin [place] (Procrit Inj) 10,000 units ONE IV. 03/03/17 09:00 03/03/17 18:00 03/03/17 15:07 10,000 UNITS Albumin Human (Albumin 25%) 25 gm ONE IV 03/03/17 07:30 03/03/17 18:00 03/03/17 14:03 12.5 GM Codeine Phosphate/ Guaifenesin (Robitussin-AC Sugar Free Syrup) 10 ml QID PO 03/03/17 12:00 04/02/17 11:59 03/03/17 12:29 10 ML Benzonatate (Tessalon Perles Cap) 100 mg Q8H PRN PO 03/03/17 10:00 04/02/17 09:59 Last 24 Hours Test 03/02/17 16:14 03/02/17 18:15 03/02/17 20:13 03/03/17 05:21 Bedside Glucose 246 mg/dl 253 mg/dl Urine Color YELLOW Urine Appearance CLEAR Urine pH >= 9.0 Urine Specific [place] 1.017 Urine Protein 1+ Urine Glucose (UA) NEG Urine Ketones NEG Urine Occult Blood NEG Urine Nitrite NEG Urine Bilirubin NEG Urine Urobilinogen NEG Urine Leukocyte Esterase TRACE Urine WBC (Auto) 1-5 /hpf Urine RBC (Auto) 0-4 /hpf Urine Hyaline Casts (Auto) 0 /lpf Urine Epithelial Cells (Auto) >30 /lpf Urine Bacteria (Auto) NEG Urine Pathogenic Casts /lpf White Blood Count 6.42 K/uL Red Blood Count 2.22 M/uL Hemoglobin 7.9 g/dL Hematocrit 25.6 % Mean Corpuscular Volume 115.3 fL Mean Corpuscular Hemoglobin 35.6 pg Mean Corpuscular Hemoglobin Concent 30.9 g/dl Platelet Count 171 K/uL Mean Platelet Volume 10.0 fL Neutrophils (%) (Auto) 82.2 % Lymphocytes (%) (Auto) 9.2 % Monocytes (%) (Auto) 7.2 % Eosinophils (%) (Auto) 0.3 % Basophils (%) (Auto) 0.2 % Neutrophils # (Auto) 5.28 K/uL Lymphocytes # (Auto) 0.59 K/uL Monocytes # (Auto) 0.46 K/uL Eosinophils # (Auto) 0.02 K/uL Basophils # (Auto) 0.01 K/uL RDW Standard Deviation 72.5 fL RDW Coefficient of Variation 17.7 % Immature Granulocyte % (Auto) 0.9 % Immature Granulocyte # (Auto) 0.06 K/uL Nucleated RBC Absolute Count (auto) 0.06 K/uL Nucleated Red Blood Cells % 1.0 % Anisocytosis PRESENT Macrocytosis PRESENT Prothrombin Time 16.4 SECONDS Prothromb Time International Ratio 1.6 Sodium Level 138 mmol/L Potassium Level 4.4 mmol/L Chloride Level 98 mmol/L Carbon Dioxide Level 30 mmol/L Anion Gap 10.0 mmol/L Blood Urea Nitrogen 79 mg/dl Creatinine 11.20 mg/dl Est Creatinine Clear Calc Drug Dose 5.6 ml/min Estimated GFR () 3.6 Estimated GFR (Non- 3.1 BUN/Creatinine Ratio 7.0 Random Glucose 174 mg/dl Calcium Level 8.7 mg/dl Test 03/03/17 07:33 03/03/17 11:35 Bedside Glucose 163 mg/dl 215 mg/dl Assessment & Plan ESRD-seen on dialysis today. pt is agreeable for dialysis tomorrow and again on tuesday. trying to help optimize volume status to help improve lung function. Anemia of renal failure-hg of 7.9, on procrit. hopefully hg levels start to trend up.
--- NOTE | 2017-03-03 20:21 | Progress Note ---
Medicine Progress Note Date & Time of Visit: Mar 03, 2017 at ~ 10:00 . Subjective Persistent coughing. Anterior chest discomfort associated with cough. No fever. No anginal symptoms. No nausea or vomiting. No diarrhea. . Objective Last 8 Hrs Date Time Temp Pulse Resp B/P (MAP) Pulse Ox O2 Delivery O2 Flow Rate FiO2 03/03/17 19:30 61 183/69 (107) 03/03/17 19:10 Nasal Cannula 3.0 Humidified Oxygen 03/03/17 18:54 58 16 98 Nasal Cannula 3.0 03/03/17 16:45 Nasal Cannula 3.0 03/03/17 16:40 36.8 55 154/67 (96) 03/03/17 15:45 59 169/78 03/03/17 15:30 55 157/55 03/03/17 15:15 56 161/78 03/03/17 15:00 54 167/58 03/03/17 14:45 57 163/57 03/03/17 14:30 52 160/68 03/03/17 14:15 51 148/67 03/03/17 14:00 51 155/67 03/03/17 13:45 51 154/65 03/03/17 13:30 52 152/68 03/03/17 13:15 62 148/64 03/03/17 13:05 55 147/65 03/03/17 12:55 36.6 62 155/63 (93) Physical Exam: General- lying in bed, no acute distress Lungs- diffuse wheezing Heart- RRR; II/ systolic murmur at base; no gallop; no JVD Abdomen- + BS, soft, nontender Extremities- trace pretibial edema; no calf tenderness Skin- warm and dry Neuro- alert . Laboratory Results: Last 24 Hours Test 03/03/17 05:21 03/03/17 07:33 03/03/17 11:35 03/03/17 17:18 White Blood Count 6.42 K/uL Red Blood Count 2.22 M/uL Hemoglobin 7.9 g/dL Hematocrit 25.6 % Mean Corpuscular Volume 115.3 fL Mean Corpuscular Hemoglobin 35.6 pg Mean Corpuscular Hemoglobin Concent 30.9 g/dl Platelet Count 171 K/uL Mean Platelet Volume 10.0 fL Neutrophils (%) (Auto) 82.2 % Lymphocytes (%) (Auto) 9.2 % Monocytes (%) (Auto) 7.2 % Eosinophils (%) (Auto) 0.3 % Basophils (%) (Auto) 0.2 % Neutrophils # (Auto) 5.28 K/uL Lymphocytes # (Auto) 0.59 K/uL Monocytes # (Auto) 0.46 K/uL Eosinophils # (Auto) 0.02 K/uL Basophils # (Auto) 0.01 K/uL RDW Standard Deviation 72.5 fL RDW Coefficient of Variation 17.7 % Immature Granulocyte % (Auto) 0.9 % Immature Granulocyte # (Auto) 0.06 K/uL Nucleated RBC Absolute Count (auto) 0.06 K/uL Nucleated Red Blood Cells % 1.0 % Anisocytosis PRESENT Macrocytosis PRESENT Prothrombin Time 16.4 SECONDS Prothromb Time International Ratio 1.6 Sodium Level 138 mmol/L Potassium Level 4.4 mmol/L Chloride Level 98 mmol/L Carbon Dioxide Level 30 mmol/L Anion Gap 10.0 mmol/L Blood Urea Nitrogen 79 mg/dl Creatinine 11.20 mg/dl Est Creatinine Clear Calc Drug Dose 5.6 ml/min Estimated GFR () 3.6 Estimated GFR (Non- 3.1 BUN/Creatinine Ratio 7.0 Random Glucose 174 mg/dl Calcium Level 8.7 mg/dl Bedside Glucose 163 mg/dl 215 mg/dl 209 mg/dl Test 03/03/17 20:00 Bedside Glucose 305 mg/dl Assessment & Plan EXACERBATION OF COPD Probably secondary to lower respiratory tract infection. Received IV methylprednisolone; transitioned to oral steroid therapy with prednisone. Continue bronchodilators. Continue antibiotics as discussed below. PROBABLE PNEUMONIA Chest x-ray showed bibasilar densities. Suspected pneumonia. Received azithromycin and IV ampicillin / sulbactam. Transitioned to oral therapy with amoxicillin / clavulanic acid. PAROXYSMAL ATRIAL FIBRILLATION Continue metoprolol and warfarin. HYPERTENSION Blood pressure this morning 155/81. Continue metoprolol, losartan, clonidine. CKD V Hemodialysis as directed by Nephrology. DM TYPE 2 Generally well-controlled. Hgb A1C 6.1 on 02/01/17. Blood sugars elevated due to acute illness + glucocorticoids. Lantus/NovoLog per protocol. FBS this morning = 163. ANEMIA Hgb 7.6 on admission. Anemia of chronic kidney disease. Stools heme neg in ED. Hgb today = 7.9. Management per Nephrology. VTE PROPHYLAXIS Continue warfarin. Ambulate. DISPOSITION Expected discharge to home. Family Medicine follow-up with Dr. Armando. . Consultants: Nephrology . Procedures: Cardiac monitoring Hemodialysis . Current Inpatient Medications: Current Inpatient Medications Medications (Trade) Dose Ordered Sig/Joan Route Start Time Stop Time Status Last Admin Dose Admin Acetaminophen (Tylenol Tab) 650 mg Q4H PRN PO 02/28/17 23:45 03/30/17 23:44 Nitroglycerin (Nitrostat Tab) 0.4 mg UD PRN SL 02/28/17 23:45 03/30/17 23:44 Insulin Aspart (novoLOG ASPART) SLIDING SCALE If C... ACHS SC 03/01/17 07:00 03/31/17 06:59 03/03/17 17:37 5 UNITS Glucose (Glucose 40% Gel) 15-30 GRAMS 15 GRAMS... UD PRN PO 02/28/17 23:45 03/30/17 23:44 Glucose (Glucose Chew Tab) 4-8 Tablets 4 Tabl... UD PRN PO 02/28/17 23:45 03/30/17 23:44 Dextrose (Dextrose 50% 50ML Syringe) 25-50ML OF 50% DW IV FOR... UD PRN IV 02/28/17 23:45 03/30/17 23:44 Glucagon (Glucagon Inj) 1 mg UD PRN SQ 02/28/17 23:45 03/30/17 23:44 Calcium Acetate (Phoslo Cap) 1,334 mg TIDM PO 03/01/17 07:30 03/31/17 07:59 03/03/17 17:31 1,334 MG Clonidine HCl (Catapres Tab) 0.1 mg BID PO 03/01/17 09:00 03/31/17 08:59 03/03/17 19:34 0.1 MG Diltiazem HCl (Cardizem Cd Cap) 120 mg QAM PO 03/01/17 09:00 03/31/17 08:59 03/03/17 08:30 120 MG Furosemide (Lasix Tab) 40 mg DAILY PO 03/01/17 09:00 03/31/17 08:59 03/03/17 08:30 40 MG Losartan Potassium (coZAAR TAB) 100 mg DAILY PO 03/01/17 09:00 03/31/17 08:59 03/03/17 08:32 100 MG Metoprolol Tartrate (Lopressor Tab) 50 mg BID PO 03/01/17 09:00 03/31/17 08:59 03/03/17 19:35 50 MG Prednisolone Acetate (Pred Forte 1% Oph Susp) 1 drops DAILY OPL 03/01/17 09:00 03/31/17 08:59 03/03/17 08:27 1 DROPS Vitamin B Complex/ Vit C/Folic Acid (Nephrocaps) 1 cap DAILY PO 03/01/17 09:00 03/31/17 08:59 03/03/17 08:31 1 CAP Tramadol HCl (Ultram Tab) 25 mg Q6H PRN PO 02/28/17 23:45 03/30/17 23:44 Hydromorphone HCl (Dilaudid Inj) 0.5 mg Q6H PRN IV 02/28/17 23:45 03/14/17 23:44 Prochlorperazine Edisylate 5 mg/ Syringe 5 ml @ 5 mls/min Q6H PRN IV 02/28/17 23:45 03/30/17 23:44 Prednisone (PredniSONE TAB) 40 mg DAILY PO 03/01/17 09:00 03/06/17 08:59 03/03/17 08:32 40 MG Miscellaneous Information (Pharmacy Consult) 1 ea UD PRN N/A 03/01/17 09:00 03/31/17 08:59 Warfarin Sodium (Coumadin Tab) 5 mg DAILY@16 PO 03/01/17 16:00 03/31/17 15:59 Future Hold 03/02/17 17:07 5 MG Miscellaneous Information (Pending Order) 1 ea DAILY@10 N/A 03/01/17 10:00 03/31/17 09:59 03/01/17 10:00 1 EA Ipratropium [place] (Atrovent 0.02% 0.5MG/2.5ML Neb) 0.5 mg Q6R INH 03/01/17 03:00 03/31/17 02:59 03/03/17 18:52 0.5 MG Levalbuterol (Xopenex 1.25MG/ 0.5ML Neb) 1.25 mg Q6R INH 03/01/17 03:00 03/31/17 02:59 03/03/17 18:52 1.25 MG Ipratropium [place] (Atrovent 0.02% 0.5MG/2.5ML Neb) 0.5 mg Q4H PRN INH 03/01/17 01:00 03/31/17 00:59 Levalbuterol (Xopenex 1.25MG/ 0.5ML Neb) 1.25 mg Q4H PRN INH 03/01/17 01:00 03/31/17 00:59 Amoxicillin/ Clavulanate Potassium (Augmentin Tab) 500 mg QDB PO 03/01/17 07:30 03/08/17 07:29 03/03/17 08:30 500 MG Lidocaine/ Prilocaine (Emla 2.5% Crm) 1 ea UD PRN EXT 03/01/17 09:45 03/31/17 09:44 03/01/17 12:16 1 EA Lactobacillus Acidophilus (Floranex Tab) 4 tab DAILY PO 03/02/17 09:00 04/01/17 08:59 03/03/17 08:31 4 TAB Insulin Glargine (Lantus Solostar Pen) BSG UNITS LANTUS... QAM SC 03/02/17 09:00 03/31/17 08:59 03/03/17 08:37 32 UNITS Amoxicillin/ Clavulanate Potassium (Augmentin Tab) 250 mg TuThSa@1200,1600 PO 03/03/17 12:00 03/08/17 07:59 03/03/17 17:32 250 MG Codeine Phosphate/ Guaifenesin (Robitussin-AC Sugar Free Syrup) 10 ml QID PO 03/03/17 12:00 04/02/17 11:59 03/03/17 17:33 10 ML Benzonatate (Tessalon Perles Cap) 100 mg Q8H PRN PO 03/03/17 10:00 04/02/17 09:59
[2017-03-04] VITALS (23 sets, daily range): BP systolic 149–178; BP diastolic 61–74; PULSE 54–78; TEMP 36.4–37.2; O2SAT 93–100
[2017-03-04] MEDS: IPRATROPIUM BROMIDE NEB SOLN 0.02% 2.5 ML VIAL INH SCH ×4 (01:32→19:43)
[2017-03-04] MEDS: LEVALBUTEROL 1.25MG/0.5ML NEB INH SCH ×4 (01:33→19:43)
[2017-03-04 06:06] LABS: BASO % 0.2 %; BASO ABS # 0.01 K/uL (0-0.2); EOS % 0.3 %; HEMATOCRIT 25.3 % (37-47); IG% 0.8 %; LYMPH % 9.9 %; LYMPH ABS # 0.59 K/uL (1.2-3.4); MEAN CORPUSCULAR HEMOGLOBIN 35.5 pg (25-34); MEAN CORPUSCULAR HGB CONC 30.8 g/dl (32-36); MEAN PLATELET VOLUME 10.5 fL (7.4-10.4); MONO % 9.9 %; NEUT % 78.9 %; PLATELET COUNT 149 K/uL (130-400); WHITE BLOOD COUNT 5.97 K/uL (4.8-10.8)
[2017-03-04 06:28] LABS: COMPLETE YES
[2017-03-04 06:35] LABS: INR 1.9 (0.9-1.1); PROTHROMBIN TIME (PATIENT) 19.8 SECONDS (9.0-12.0)
[2017-03-04 06:52] LABS: BUN/CREATININE RATIO 6.7 (10-20); CALCIUM 8.5 mg/dl (8.5-10.1); CREATININE 8.79 mg/dl (0.60-1.20); POTASSIUM 4.5 mmol/L (3.5-5.1)
[2017-03-04] MEDS: PrednisoLONE ACET 1% OP SUSP 5 ML BTL OPL SCH (07:26)
[2017-03-04] MEDS: INSULIN ASPART 100 UNITS/ML 3 ML PEN SC SCH ×4 (07:30→21:15)
[2017-03-04] MEDS: INSULIN GLARGINE SOLOSTAR 100 UNITS/ML 3 ML PEN SC SCH (07:30)
[2017-03-04] MEDS: GUAIFENESIN/CODEINE 200MG/20MG 10ML UDC PO SCH ×4 (07:32→21:22)
[2017-03-04] MEDS: CALCIUM ACETATE 667MG GELCAP PO SCH ×3 (07:34→18:41)
[2017-03-04] MEDS ORDERED: EPOETIN ALFA 10,000 UNITS/ML VIAL IV. SCH (08:30)
[2017-03-04] MEDS: CLONIDINE HCL 0.1 MG TAB PO SCH ×2 (12:45→21:13)
[2017-03-04] MEDS: METOPROLOL TARTRATE 50 MG TAB PO SCH ×2 (12:46→21:13)
[2017-03-04] MEDS: ALBUMIN HUMAN 25% 12.5 GM/50 ML VIAL IV SCH ×2 (15:00→16:00)
--- NOTE | 2017-03-04 17:01 | Dialysis Progress Note ---
Nephrology Dialysis Note Date of Service: Mar 04, 2017. Subjective 72 yo female with esrd on dialysis t/h/s and seen on dialysis today. had dialysis yesterday and today and plan on again tomorrow. pt overall breathing much better. Objective Date Time Temp Pulse Resp B/P (MAP) Pulse Ox O2 Delivery O2 Flow Rate FiO2 03/04/17 16:15 58 153/71 03/04/17 16:00 57 158/64 03/04/17 15:45 57 163/66 03/04/17 15:30 59 157/68 03/04/17 15:15 57 158/65 03/04/17 15:10 36.4 54 18 156/68 (97) 100 Nasal Cannula 2.0 03/04/17 15:00 58 167/67 03/04/17 14:50 36.6 58 158/74 (102) 03/04/17 14:22 78 15 98 Nasal Cannula 3.0 03/04/17 10:27 62 96 03/04/17 08:00 Nasal Cannula 3.0 03/04/17 07:45 36.8 60 20 153/74 (100) 95 Nasal Cannula 3.0 03/04/17 07:03 77 16 98 Nasal Cannula 3.0 03/04/17 01:33 68 16 98 Nasal Cannula 3.0 03/04/17 00:18 37.2 58 17 163/68 (99) 93 Nasal Cannula 3.0 03/03/17 23:36 Nasal Cannula 3.0 Humidified Oxygen 03/03/17 19:30 61 183/69 (107) 03/03/17 19:10 Nasal Cannula 3.0 Humidified Oxygen 03/03/17 18:54 58 16 98 Nasal Cannula 3.0 Physical Exam: General-aaox3 Eyes-no scleral icterus ENT-mmm Neck-supple Lungs-cta Heart-bradycardia Abdomen-bs+ s/nt/nd Extremities-no c/c/e Neuro-nonfocal Current Inpatient Medications Medications (Trade) Dose Ordered Sig/Joan Route Start Time Stop Time Status Last Admin Dose Admin Acetaminophen (Tylenol Tab) 650 mg Q4H PRN PO 02/28/17 23:45 03/30/17 23:44 Nitroglycerin (Nitrostat Tab) 0.4 mg UD PRN SL 02/28/17 23:45 1/3/18 23:44 Insulin Aspart (novoLOG ASPART) SLIDING SCALE If C... ACHS SC 03/01/17 07:00 03/31/17 06:59 03/04/17 11:38 2 UNITS Glucose (Glucose 40% Gel) 15-30 GRAMS 15 GRAMS... UD PRN PO 02/28/17 23:45 03/30/17 23:44 Glucose (Glucose Chew Tab) 4-8 Tablets 4 Tabl... UD PRN PO 02/28/17 23:45 03/30/17 23:44 Dextrose (Dextrose 50% 50ML Syringe) 25-50ML OF 50% DW IV FOR... UD PRN IV 02/28/17 23:45 03/30/17 23:44 Glucagon (Glucagon Inj) 1 mg UD PRN SQ 02/28/17 23:45 03/30/17 23:44 Calcium Acetate (Phoslo Cap) 1,334 mg TIDM PO 03/01/17 07:30 03/31/17 07:59 03/04/17 11:35 1,334 MG Clonidine HCl (Catapres Tab) 0.1 mg BID PO 03/01/17 09:00 03/31/17 08:59 03/03/17 19:34 0.1 MG Diltiazem HCl (Cardizem Cd Cap) 120 mg QAM PO 03/01/17 09:00 03/31/17 08:59 03/03/17 08:30 120 MG Furosemide (Lasix Tab) 40 mg DAILY PO 03/01/17 09:00 03/31/17 08:59 03/03/17 08:30 40 MG Losartan Potassium (coZAAR TAB) 100 mg DAILY PO 03/01/17 09:00 03/31/17 08:59 03/03/17 08:32 100 MG Metoprolol Tartrate (Lopressor Tab) 50 mg BID PO 03/01/17 09:00 03/31/17 08:59 03/03/17 19:35 50 MG Prednisolone Acetate (Pred Forte 1% Oph Susp) 1 drops DAILY OPL 03/01/17 09:00 03/31/17 08:59 03/04/17 07:26 1 DROPS Vitamin B Complex/ Vit C/Folic Acid (Nephrocaps) 1 cap DAILY PO 03/01/17 09:00 03/31/17 08:59 03/03/17 08:31 1 CAP Tramadol HCl (Ultram Tab) 25 mg Q6H PRN PO 02/28/17 23:45 03/30/17 23:44 Hydromorphone HCl (Dilaudid Inj) 0.5 mg Q6H PRN IV 02/28/17 23:45 03/14/17 23:44 Prochlorperazine Edisylate 5 mg/ Syringe 5 ml @ 5 mls/min Q6H PRN IV 02/28/17 23:45 03/30/17 23:44 Prednisone (PredniSONE TAB) 40 mg DAILY PO 03/01/17 09:00 03/06/17 08:59 03/03/17 08:32 40 MG Miscellaneous Information (Pharmacy Consult) 1 ea UD PRN N/A 03/01/17 09:00 03/31/17 08:59 Warfarin Sodium (Coumadin Tab) 5 mg DAILY@16 PO 03/01/17 16:00 03/31/17 15:59 Future hold 03/02/17 17:07 5 MG Miscellaneous Information (Pending Order) 1 ea DAILY@10 N/A 03/01/17 10:00 03/31/17 09:59 03/01/17 10:00 1 EA Ipratropium [place] (Atrovent 0.02% 0.5MG/2.5ML Neb) 0.5 mg Q6R INH 03/01/17 03:00 03/31/17 02:59 03/04/17 14:20 0.5 MG Levalbuterol (Xopenex 1.25MG/ 0.5ML Neb) 1.25 mg Q6R INH 03/01/17 03:00 03/31/17 02:59 03/04/17 14:19 1.25 MG Ipratropium [place] (Atrovent 0.02% 0.5MG/2.5ML Neb) 0.5 mg Q4H PRN INH 03/01/17 01:00 03/31/17 00:59 Levalbuterol (Xopenex 1.25MG/ 0.5ML Neb) 1.25 mg Q4H PRN INH 03/01/17 01:00 03/31/17 00:59 Amoxicillin/ Clavulanate Potassium (Augmentin Tab) 500 mg QDB PO 03/01/17 07:30 03/08/17 07:29 03/03/17 08:30 500 MG Lidocaine/ Prilocaine (Emla 2.5% Crm) 1 ea UD PRN EXT 03/01/17 09:45 03/31/17 09:44 03/01/17 12:16 1 EA Lactobacillus Acidophilus (Floranex Tab) 4 tab DAILY PO 03/02/17 09:00 04/01/17 08:59 03/03/17 08:31 4 TAB Insulin Glargine (Lantus Solostar Pen) BSG UNITS LANTUS... QAM SC 03/02/17 09:00 03/31/17 08:59 03/04/17 07:30 32 UNITS Amoxicillin/ Clavulanate Potassium (Augmentin Tab) 250 mg TuThSa@1200,1600 PO 03/03/17 12:00 03/08/17 07:59 03/03/17 17:32 250 MG Codeine Phosphate/ Guaifenesin (Robitussin-AC Sugar Free Syrup) 10 ml QID PO 03/03/17 12:00 04/02/17 11:59 03/04/17 11:38 10 ML Benzonatate (Tessalon Perles Cap) 100 mg Q8H PRN PO 03/03/17 10:00 04/02/17 09:59 Last 24 Hours Test 03/03/17 17:18 03/03/17 20:00 03/03/17 21:55 03/04/17 05:38 Bedside Glucose 209 mg/dl 305 mg/dl 291 mg/dl White Blood Count 5.97 K/uL Red Blood Count 2.20 M/uL Hemoglobin 7.8 g/dL Hematocrit 25.3 % Mean Corpuscular Volume 115.0 fL Mean Corpuscular Hemoglobin 35.5 pg Mean Corpuscular Hemoglobin Concent 30.8 g/dl Platelet Count 149 K/uL Mean Platelet Volume 10.5 fL Neutrophils (%) (Auto) 78.9 % Lymphocytes (%) (Auto) 9.9 % Monocytes (%) (Auto) 9.9 % Eosinophils (%) (Auto) 0.3 % Basophils (%) (Auto) 0.2 % Neutrophils # (Auto) 4.71 K/uL Lymphocytes # (Auto) 0.59 K/uL Monocytes # (Auto) 0.59 K/uL Eosinophils # (Auto) 0.02 K/uL Basophils # (Auto) 0.01 K/uL RDW Standard Deviation 72.4 fL RDW Coefficient of Variation 17.9 % Immature Granulocyte % (Auto) 0.8 % Immature Granulocyte # (Auto) 0.05 K/uL Nucleated RBC Absolute Count (auto) 0.11 K/uL Nucleated Red Blood Cells % 1.8 % Macrocytosis PRESENT Prothrombin Time 19.8 SECONDS Prothromb Time International Ratio 1.9 Sodium Level 137 mmol/L Potassium Level 4.5 mmol/L Chloride Level 99 mmol/L Carbon Dioxide Level 28 mmol/L Anion Gap 10.0 mmol/L Blood Urea Nitrogen 59 mg/dl Creatinine 8.79 mg/dl Est Creatinine Clear Calc Drug Dose 7.1 ml/min Estimated GFR () 4.8 Estimated GFR (Non- 4.1 BUN/Creatinine Ratio 6.7 Random Glucose 162 mg/dl Calcium Level 8.5 mg/dl Test 03/04/17 07:24 03/04/17 11:24 Bedside Glucose 163 mg/dl 151 mg/dl Assessment & Plan ESRD-seen on dialysis today. volume status improved and pt breathing much better. no complaints. Anemia of renal failure-hg below goal and continue procrit on dialysis.
[2017-03-04] MEDS: AMOXICILLIN/CLAVULANATE TAB 500 MG TAB PO SCH (18:35)
[2017-03-04] MEDS: DILTIAZEM HCL 120 MG CAPCR PO SCH (18:37)
[2017-03-04] MEDS: LOSARTAN POTASSIUM 50 MG TAB PO SCH (18:38)
[2017-03-04] MEDS: LACTOBACILLUS ACIDOPHILUS (FLORANEX) TAB PO SCH (18:38)
[2017-03-04] MEDS: FUROSEMIDE 40 MG TAB PO SCH (18:40)
[2017-03-04] MEDS: NEPHROCAPS PO SCH (18:40)
[2017-03-04] MEDS: WARFARIN SOD 5 MG TAB PO SCH (19:13)
--- NOTE | 2017-03-04 21:52 | Progress Note ---
Medicine Progress Note Date & Time of Visit: Mar 04, 2017 at 21:00 . Subjective Received extra dialysis treatment today. Cough improved. Ambulated today with walker with PT; noted to have low O2 sats. No chest pain. No nausea, vomiting, diarrhea. . Objective Last 8 Hrs Date Time Temp Pulse Resp B/P (MAP) Pulse Ox O2 Delivery O2 Flow Rate FiO2 03/04/17 21:11 64 178/64 (102) 03/04/17 19:44 76 15 98 Nasal Cannula 3.0 03/04/17 18:30 Nasal Cannula 2.5 03/04/17 18:01 36.6 67 156/64 (94) 03/04/17 17:45 60 161/61 03/04/17 17:30 57 151/64 03/04/17 17:15 58 149/67 03/04/17 17:00 58 164/70 03/04/17 16:45 61 161/69 03/04/17 16:30 58 164/68 03/04/17 16:15 58 153/71 03/04/17 16:00 57 158/64 03/04/17 15:45 57 163/66 03/04/17 15:30 59 157/68 03/04/17 15:15 57 158/65 03/04/17 15:10 36.4 54 18 156/68 (97) 100 Nasal Cannula 2.0 03/04/17 15:00 58 167/67 03/04/17 14:50 36.6 58 158/74 (102) 03/04/17 14:22 78 15 98 Nasal Cannula 3.0 Physical Exam: General- lying in bed, no distress Lungs- wheezing improved Heart- RRR; II/ systolic murmur at base; no gallop; no JVD Abdomen- + BS, soft, nontender Extremities- trace pretibial edema; no calf tenderness Skin- warm and dry Neuro- alert . Laboratory Results: Last 24 Hours Test 03/03/17 21:55 03/04/17 05:38 03/04/17 07:24 03/04/17 11:24 Bedside Glucose 291 mg/dl 163 mg/dl 151 mg/dl White Blood Count 5.97 K/uL Red Blood Count 2.20 M/uL Hemoglobin 7.8 g/dL Hematocrit 25.3 % Mean Corpuscular Volume 115.0 fL Mean Corpuscular Hemoglobin 35.5 pg Mean Corpuscular Hemoglobin Concent 30.8 g/dl Platelet Count 149 K/uL Mean Platelet Volume 10.5 fL Neutrophils (%) (Auto) 78.9 % Lymphocytes (%) (Auto) 9.9 % Monocytes (%) (Auto) 9.9 % Eosinophils (%) (Auto) 0.3 % Basophils (%) (Auto) 0.2 % Neutrophils # (Auto) 4.71 K/uL Lymphocytes # (Auto) 0.59 K/uL Monocytes # (Auto) 0.59 K/uL Eosinophils # (Auto) 0.02 K/uL Basophils # (Auto) 0.01 K/uL RDW Standard Deviation 72.4 fL RDW Coefficient of Variation 17.9 % Immature Granulocyte % (Auto) 0.8 % Immature Granulocyte # (Auto) 0.05 K/uL Nucleated RBC Absolute Count (auto) 0.11 K/uL Nucleated Red Blood Cells % 1.8 % Macrocytosis PRESENT Prothrombin Time 19.8 SECONDS Prothromb Time International Ratio 1.9 Sodium Level 137 mmol/L Potassium Level 4.5 mmol/L Chloride Level 99 mmol/L Carbon Dioxide Level 28 mmol/L Anion Gap 10.0 mmol/L Blood Urea Nitrogen 59 mg/dl Creatinine 8.79 mg/dl Est Creatinine Clear Calc Drug Dose 7.1 ml/min Estimated GFR () 4.8 Estimated GFR (Non- 4.1 BUN/Creatinine Ratio 6.7 Random Glucose 162 mg/dl Calcium Level 8.5 mg/dl Test 03/04/17 18:32 03/04/17 20:59 Bedside Glucose 117 mg/dl 212 mg/dl Assessment & Plan EXACERBATION OF COPD Probably secondary to lower respiratory tract infection. Received IV methylprednisolone; transitioned to oral steroid therapy with prednisone. Bronchospasm improving. Continue bronchodilators. Continue antibiotics as discussed below. O2 desaturation with ambulation; will need 2-step prior to DC. PROBABLE PNEUMONIA Chest x-ray showed bibasilar densities. Suspected pneumonia. Received azithromycin and IV ampicillin / sulbactam. Transitioned to oral therapy with amoxicillin / clavulanic acid. Cough improved. PAROXYSMAL ATRIAL FIBRILLATION Continue metoprolol and warfarin. HYPERTENSION Blood pressure this morning 153/74. Continue metoprolol, losartan, clonidine. CKD V Hemodialysis as directed by Nephrology. DM TYPE 2 Generally well-controlled. Hgb A1C 6.1 on 02/01/17. Blood sugars elevated due to acute illness + glucocorticoids. Lantus/NovoLog per protocol. FBS this morning = 163. ANEMIA Hgb 7.6 on admission. Anemia of chronic kidney disease. Stools heme neg in ED. Hgb today = 7.8. Management per Nephrology. VTE PROPHYLAXIS Continue warfarin. Ambulate. DISPOSITION Expected discharge to home. Family Medicine follow-up with Dr. Armando. . Consultants: Nephrology . Procedures: Cardiac monitoring Hemodialysis . Current Inpatient Medications: Current Inpatient Medications Medications (Trade) Dose Ordered Sig/Joan Route Start Time Stop Time Status Last Admin Dose Admin Acetaminophen (Tylenol Tab) 650 mg Q4H PRN PO 02/28/17 23:45 03/30/17 23:44 Nitroglycerin (Nitrostat Tab) 0.4 mg UD PRN SL 02/28/17 23:45 03/30/17 23:44 Insulin Aspart (novoLOG ASPART) SLIDING SCALE If C... ACHS SC 03/01/17 07:00 03/31/17 06:59 03/04/17 21:15 2 UNITS Glucose (Glucose 40% Gel) 15-30 GRAMS 15 GRAMS... UD PRN PO 02/28/17 23:45 03/30/17 23:44 Glucose (Glucose Chew Tab) 4-8 Tablets 4 Tabl... UD PRN PO 02/28/17 23:45 03/30/17 23:44 Dextrose (Dextrose 50% 50ML Syringe) 25-50ML OF 50% DW IV FOR... UD PRN IV 02/28/17 23:45 03/30/17 23:44 Glucagon (Glucagon Inj) 1 mg UD PRN SQ 02/28/17 23:45 03/30/17 23:44 Calcium Acetate (Phoslo Cap) 1,334 mg TIDM PO 03/01/17 07:30 03/31/17 07:59 03/04/17 18:41 1,334 MG Clonidine HCl (Catapres Tab) 0.1 mg BID PO 03/01/17 09:00 03/31/17 08:59 03/04/17 21:13 0.1 MG Diltiazem HCl (Cardizem Cd Cap) 120 mg QAM PO 03/01/17 09:00 03/31/17 08:59 03/03/17 08:30 120 MG Furosemide (Lasix Tab) 40 mg DAILY PO 03/01/17 09:00 03/31/17 08:59 03/04/17 18:40 40 MG Losartan Potassium (coZAAR TAB) 100 mg DAILY PO 03/01/17 09:00 03/31/17 08:59 03/04/17 18:38 100 MG Metoprolol Tartrate (Lopressor Tab) 50 mg BID PO 03/01/17 09:00 03/31/17 08:59 03/04/17 21:13 50 MG Prednisolone Acetate (Pred Forte 1% Oph Susp) 1 drops DAILY OPL 03/01/17 09:00 03/31/17 08:59 03/04/17 07:26 1 DROPS Vitamin B Complex/ Vit C/Folic Acid (Nephrocaps) 1 cap DAILY PO 03/01/17 09:00 03/31/17 08:59 03/04/17 18:40 1 CAP Tramadol HCl (Ultram Tab) 25 mg Q6H PRN PO 02/28/17 23:45 03/30/17 23:44 Hydromorphone HCl (Dilaudid Inj) 0.5 mg Q6H PRN IV 02/28/17 23:45 03/14/17 23:44 Prochlorperazine Edisylate 5 mg/ Syringe 5 ml @ 5 mls/min Q6H PRN IV 02/28/17 23:45 03/30/17 23:44 Prednisone (PredniSONE TAB) 40 mg DAILY PO 03/01/17 09:00 03/06/17 08:59 03/04/17 18:40 40 MG Miscellaneous Information (Pharmacy Consult) 1 ea UD PRN N/A 03/01/17 09:00 03/31/17 08:59 Warfarin Sodium (Coumadin Tab) 5 mg DAILY@16 PO 03/01/17 16:00 03/31/17 15:59 Future hold 03/04/17 19:13 5 MG Miscellaneous Information (Pending Order) 1 ea DAILY@10 N/A 03/01/17 10:00 03/31/17 09:59 03/01/17 10:00 1 EA Ipratropium [place] (Atrovent 0.02% 0.5MG/2.5ML Neb) 0.5 mg Q6R INH 03/01/17 03:00 03/31/17 02:59 03/04/17 19:43 0.5 MG Levalbuterol (Xopenex 1.25MG/ 0.5ML Neb) 1.25 mg Q6R INH 03/01/17 03:00 03/31/17 02:59 03/04/17 19:43 1.25 MG Ipratropium [place] (Atrovent 0.02% 0.5MG/2.5ML Neb) 0.5 mg Q4H PRN INH 03/01/17 01:00 03/31/17 00:59 Levalbuterol (Xopenex 1.25MG/ 0.5ML Neb) 1.25 mg Q4H PRN INH 03/01/17 01:00 03/31/17 00:59 Amoxicillin/ Clavulanate Potassium (Augmentin Tab) 500 mg QDB PO 03/01/17 07:30 03/08/17 07:29 03/04/17 18:35 500 MG Lidocaine/ Prilocaine (Emla 2.5% Crm) 1 ea UD PRN EXT 03/01/17 09:45 03/31/17 09:44 03/01/17 12:16 1 EA Lactobacillus Acidophilus (Floranex Tab) 4 tab DAILY PO 03/02/17 09:00 04/01/17 08:59 03/04/17 18:38 4 TAB Insulin Glargine (Lantus Solostar Pen) BSG UNITS LANTUS... QAM SC 03/02/17 09:00 03/31/17 08:59 03/04/17 07:30 32 UNITS Amoxicillin/ Clavulanate Potassium (Augmentin Tab) 250 mg TuThSa@1200,1600 PO 03/03/17 12:00 03/08/17 07:59 03/03/17 17:32 250 MG Codeine Phosphate/ Guaifenesin (Robitussin-AC Sugar Free Syrup) 10 ml QID PO 03/03/17 12:00 04/02/17 11:59 03/04/17 21:22 10 ML Benzonatate (Tessalon Perles Cap) 100 mg Q8H PRN PO 03/03/17 10:00 04/02/17 09:59
[2017-03-05] VITALS (22 sets, daily range): BP systolic 147–167; BP diastolic 56–76; PULSE 60–74; TEMP 36.4–37.2; O2SAT 87–100
[2017-03-05] MEDS: IPRATROPIUM BROMIDE NEB SOLN 0.02% 2.5 ML VIAL INH SCH ×3 (02:20→13:42)
[2017-03-05] MEDS: LEVALBUTEROL 1.25MG/0.5ML NEB INH SCH ×3 (02:20→13:43)
[2017-03-05 05:54] LABS: BASO % 0.1 %; BASO ABS # 0.01 K/uL (0-0.2); HEMATOCRIT 27.1 % (37-47); IG% 1.8 %; LYMPH % 3.1 %; LYMPH ABS # 0.21 K/uL (1.2-3.4); MEAN CELL VOLUME 116.3 fL (80-100); MEAN CORPUSCULAR HEMOGLOBIN 35.6 pg (25-34); MEAN CORPUSCULAR HGB CONC 30.6 g/dl (32-36); MEAN PLATELET VOLUME 11.1 fL (7.4-10.4); MONO % 4.4 %; NEUT % 90.6 %; PLATELET COUNT 153 K/uL (130-400); RED BLOOD COUNT 2.33 M/uL (4.2-5.4); WHITE BLOOD COUNT 6.83 K/uL (4.8-10.8)
[2017-03-05 06:01] LABS: INR 2.1 (0.9-1.1); PROTHROMBIN TIME (PATIENT) 22.1 SECONDS (9.0-12.0)
[2017-03-05 06:35] LABS: BUN/CREATININE RATIO 5.7 (10-20); CALCIUM 8.2 mg/dl (8.5-10.1); CREATININE 7.53 mg/dl (0.60-1.20); POTASSIUM 4.9 mmol/L (3.5-5.1)
[2017-03-05 07:02] LABS: COMPLETE YES; POLYCHROMASIA 1+
[2017-03-05] MEDS: PrednisoLONE ACET 1% OP SUSP 5 ML BTL OPL SCH (07:49)
[2017-03-05] MEDS: CALCIUM ACETATE 667MG GELCAP PO SCH ×2 (07:50→12:55)
[2017-03-05] MEDS: INSULIN ASPART 100 UNITS/ML 3 ML PEN SC SCH ×2 (07:55→12:59)
[2017-03-05] MEDS: INSULIN GLARGINE SOLOSTAR 100 UNITS/ML 3 ML PEN SC SCH (07:56)
[2017-03-05] MEDS: GUAIFENESIN/CODEINE 200MG/20MG 10ML UDC PO SCH ×2 (08:00→12:55)
[2017-03-05] MEDS: ALBUMIN HUMAN 25% 12.5 GM/50 ML VIAL IV SCH ×2 (09:00→13:46)
[2017-03-05 09:16] LABS: HEPATITIS B AB NEG
--- NOTE | 2017-03-05 12:25 | Nephrology Progress Note ---
Nephrology Progress Note Date of Service: Mar 05, 2017. Subjective Note created in error; see separate dialysis note for this date.
--- NOTE | 2017-03-05 12:30 | Dialysis Progress Note ---
Nephrology Dialysis Note Date of Service: Mar 05, 2017. Subjective no c/o uncontrolled pain . feels breathing continues improved. notes may need higher 02L total at home. no n/v, no cramping currently. Objective Date Time Temp Pulse Resp B/P (MAP) Pulse Ox O2 Delivery O2 Flow Rate FiO2 03/05/17 12:17 36.8 62 18 154/70 (98) 95 Nasal Cannula 2.0 03/05/17 12:00 36.7 61 156/60 (92) 03/05/17 11:45 61 163/64 03/05/17 11:30 61 161/72 03/05/17 11:15 62 159/66 03/05/17 11:00 61 161/66 03/05/17 10:45 61 161/66 03/05/17 10:30 61 160/67 03/05/17 10:15 61 153/66 03/05/17 10:00 60 156/61 03/05/17 09:45 60 154/68 03/05/17 09:30 62 153/65 03/05/17 09:15 60 151/66 03/05/17 09:00 60 159/63 03/05/17 08:54 67 147/68 03/05/17 08:50 37.1 70 162/56 (91) 03/05/17 07:32 36.4 61 20 164/76 (105) 100 03/05/17 06:57 67 16 87 Nasal Cannula 2.5 03/05/17 02:30 74 16 96 Nasal Cannula 2.5 03/05/17 00:15 Nasal Cannula 2.0 03/05/17 00:04 37.2 64 20 167/75 (105) 95 Nasal Cannula 2.0 Humidified Oxygen 03/04/17 21:11 64 178/64 (102) 03/04/17 19:44 76 15 98 Nasal Cannula 3.0 03/04/17 18:30 Nasal Cannula 2.5 03/04/17 18:01 36.6 67 156/64 (94) 03/04/17 17:45 60 161/61 03/04/17 17:30 57 151/64 03/04/17 17:15 58 149/67 03/04/17 17:00 58 164/70 03/04/17 16:45 61 161/69 03/04/17 16:30 58 164/68 03/04/17 16:15 58 153/71 03/04/17 16:00 57 158/64 03/04/17 15:45 57 163/66 03/04/17 15:30 59 157/68 03/04/17 15:15 57 158/65 03/04/17 15:10 36.4 54 18 156/68 (97) 100 Nasal Cannula 2.0 03/04/17 15:00 58 167/67 03/04/17 14:50 36.6 58 158/74 (102) 03/04/17 14:22 78 15 98 Nasal Cannula 3.0 Physical Exam: eneral-[id number], on 02NC Eyes-no scleral icterus ENT-mmm Neck-supple Lungs-decreased at bases maria dolores; minimal mvt throughout Heart-rrr Abdomen-bs+ s/nt/nd Extremities-no c/c/e Neuro-louie, fluent speech Current Inpatient Medications Medications (Trade) Dose Ordered Sig/Joan Route Start Time Stop Time Status Last Admin Dose Admin Acetaminophen (Tylenol Tab) 650 mg Q4H PRN PO 02/28/17 23:45 03/30/17 23:44 Nitroglycerin (Nitrostat Tab) 0.4 mg UD PRN SL 02/28/17 23:45 03/30/17 23:44 Insulin Aspart (novoLOG ASPART) SLIDING SCALE If C... ACHS SC 03/01/17 07:00 03/31/17 06:59 03/05/17 07:55 6 UNITS Glucose (Glucose 40% Gel) 15-30 GRAMS 15 GRAMS... UD PRN PO 02/28/17 23:45 03/30/17 23:44 Glucose (Glucose Chew Tab) 4-8 Tablets 4 Tabl... UD PRN PO 02/28/17 23:45 03/30/17 23:44 Dextrose (Dextrose 50% 50ML Syringe) 25-50ML OF 50% DW IV FOR... UD PRN IV 02/28/17 23:45 03/30/17 23:44 Glucagon (Glucagon Inj) 1 mg UD PRN SQ 02/28/17 23:45 03/30/17 23:44 Calcium Acetate (Phoslo Cap) 1,334 mg TIDM PO 03/01/17 07:30 03/31/17 07:59 03/05/17 07:50 1,334 MG Clonidine HCl (Catapres Tab) 0.1 mg BID PO 03/01/17 09:00 03/31/17 08:59 03/04/17 21:13 0.1 MG Diltiazem HCl (Cardizem Cd Cap) 120 mg QAM PO 03/01/17 09:00 03/31/17 08:59 03/03/17 08:30 120 MG Furosemide (Lasix Tab) 40 mg DAILY PO 03/01/17 09:00 03/31/17 08:59 03/04/17 18:40 40 MG Losartan Potassium (coZAAR TAB) 100 mg DAILY PO 03/01/17 09:00 03/31/17 08:59 03/04/17 18:38 100 MG Metoprolol Tartrate (Lopressor Tab) 50 mg BID PO 03/01/17 09:00 03/31/17 08:59 03/04/17 21:13 50 MG Prednisolone Acetate (Pred Forte 1% Oph Susp) 1 drops DAILY OPL 03/01/17 09:00 03/31/17 08:59 03/05/17 07:49 1 DROPS Vitamin B Complex/ Vit C/Folic Acid (Nephrocaps) 1 cap DAILY PO 03/01/17 09:00 03/31/17 08:59 03/04/17 18:40 1 CAP Tramadol HCl (Ultram Tab) 25 mg Q6H PRN PO 02/28/17 23:45 03/30/17 23:44 Hydromorphone HCl (Dilaudid Inj) 0.5 mg Q6H PRN IV 02/28/17 23:45 03/14/17 23:44 Prochlorperazine Edisylate 5 mg/ Syringe 5 ml @ 5 mls/min Q6H PRN IV 02/28/17 23:45 03/30/17 23:44 Prednisone (PredniSONE TAB) 40 mg DAILY PO 03/01/17 09:00 03/06/17 08:59 03/04/17 18:40 40 MG Miscellaneous Information (Pharmacy Consult) 1 ea UD PRN N/A 03/01/17 09:00 03/31/17 08:59 Warfarin Sodium (Coumadin Tab) 5 mg DAILY@16 PO 03/01/17 16:00 03/31/17 15:59 Future hold 03/04/17 19:13 5 MG Miscellaneous Information (Pending Order) 1 ea DAILY@10 N/A 03/01/17 10:00 03/31/17 09:59 03/01/17 10:00 1 EA Ipratropium [place] (Atrovent 0.02% 0.5MG/2.5ML Neb) 0.5 mg Q6R INH 03/01/17 03:00 03/31/17 02:59 03/05/17 06:57 0.5 MG Levalbuterol (Xopenex 1.25MG/ 0.5ML Neb) 1.25 mg Q6R INH 03/01/17 03:00 03/31/17 02:59 03/05/17 06:57 1.25 MG Ipratropium [place] (Atrovent 0.02% 0.5MG/2.5ML Neb) 0.5 mg Q4H PRN INH 03/01/17 01:00 03/31/17 00:59 Levalbuterol (Xopenex 1.25MG/ 0.5ML Neb) 1.25 mg Q4H PRN INH 03/01/17 01:00 03/31/17 00:59 Amoxicillin/ Clavulanate Potassium (Augmentin Tab) 500 mg QDB PO 03/01/17 07:30 03/08/17 07:29 03/04/17 18:35 500 MG Lidocaine/ Prilocaine (Emla 2.5% Crm) 1 ea UD PRN EXT 03/01/17 09:45 03/31/17 09:44 03/01/17 12:16 1 EA Lactobacillus Acidophilus (Floranex Tab) 4 tab DAILY PO 03/02/17 09:00 04/01/17 08:59 03/04/17 18:38 4 TAB Insulin Glargine (Lantus Solostar Pen) BSG UNITS LANTUS... QAM SC 03/02/17 09:00 03/31/17 08:59 03/05/17 07:56 32 UNITS Amoxicillin/ Clavulanate Potassium (Augmentin Tab) 250 mg TuThSa@1200,1600 PO 03/03/17 12:00 03/08/17 07:59 03/03/17 17:32 250 MG Codeine Phosphate/ Guaifenesin (Robitussin-AC Sugar Free Syrup) 10 ml QID PO 03/03/17 12:00 04/02/17 11:59 03/05/17 08:00 10 ML Benzonatate (Tessalon Perles Cap) 100 mg Q8H PRN PO 03/03/17 10:00 04/02/17 09:59 Albumin Human (Albumin 25%) 12.5 gm TODAY@0900,1000 IV 03/05/17 09:00 03/05/17 16:00 03/05/17 09:00 12.5 GM Last 24 Hours Test 03/04/17 18:32 03/04/17 20:59 03/05/17 05:30 03/05/17 07:46 Bedside Glucose 117 mg/dl 212 mg/dl 271 mg/dl White Blood Count 6.83 K/uL Red Blood Count 2.33 M/uL Hemoglobin 8.3 g/dL Hematocrit 27.1 % Mean Corpuscular Volume 116.3 fL Mean Corpuscular Hemoglobin 35.6 pg Mean Corpuscular Hemoglobin Concent 30.6 g/dl Platelet Count 153 K/uL Mean Platelet Volume 11.1 fL Neutrophils (%) (Auto) 90.6 % Lymphocytes (%) (Auto) 3.1 % Monocytes (%) (Auto) 4.4 % Eosinophils (%) (Auto) 0.0 % Basophils (%) (Auto) 0.1 % Neutrophils # (Auto) 6.19 K/uL Lymphocytes # (Auto) 0.21 K/uL Monocytes # (Auto) 0.30 K/uL Eosinophils # (Auto) 0.00 K/uL Basophils # (Auto) 0.01 K/uL RDW Standard Deviation 75.8 fL RDW Coefficient of Variation 18.8 % Immature Granulocyte % (Auto) 1.8 % Immature Granulocyte # (Auto) 0.12 K/uL Nucleated RBC Absolute Count (auto) 0.04 K/uL Nucleated Red Blood Cells % 0.6 % Polychromasia 1+ Macrocytosis PRESENT Prothrombin Time 22.1 SECONDS Prothromb Time International Ratio 2.1 Sodium Level 133 mmol/L Potassium Level 4.9 mmol/L Chloride Level 97 mmol/L Carbon Dioxide Level 30 mmol/L Anion Gap 6.0 mmol/L Blood Urea Nitrogen 43 mg/dl Creatinine 7.53 mg/dl Est Creatinine Clear Calc Drug Dose 8.2 ml/min Estimated GFR () 5.8 Estimated GFR (Non- 5.0 BUN/Creatinine Ratio 5.7 Random Glucose 297 mg/dl Calcium Level 8.2 mg/dl Hepatitis B Surface Antigen NEG Hepatitis B Surface Antibody NEG Assessment & Plan 72 yo female with esrd on dialysis t/h/s and undergoing dialysis today. pt continues to have wheezing and dry cough but overall resp status improved. did actually stop smoking after last hospitalization. currently on steroids and nebs. ESRD-Hd today per routine; plan next HD as outpt on 03/08 Anemia of renal failure-could have element of procrit resistance, hg levels trending down. monitor for now. if hg levels continue to trend down, consider transfusion. for now, redose procrit again on dialysis. Likely for d/c after tx later today. Care coordinated w/ Dr. Cabrera. Appreciate consult; will follow with you.
[2017-03-05] MEDS: METOPROLOL TARTRATE 50 MG TAB PO SCH (12:55)
[2017-03-05] MEDS: CLONIDINE HCL 0.1 MG TAB PO SCH (12:55)
[2017-03-05] MEDS: DILTIAZEM HCL 120 MG CAPCR PO SCH (12:56)
[2017-03-05] MEDS: AMOXICILLIN PO SCH ×2 (12:56→13:08)
[2017-03-05] MEDS: CLAVULANATE PO SCH ×2 (12:56→13:08)
[2017-03-05] MEDS ORDERED: NURSING VERBAL MED ORDER ONE (13:30)
[2017-03-05] MEDS: NEPHROCAPS PO SCH (13:52)
[2017-03-05] MEDS: LOSARTAN POTASSIUM 50 MG TAB PO SCH (13:52)
[2017-03-05] MEDS: FUROSEMIDE 40 MG TAB PO SCH (13:52)
[2017-03-05] MEDS: LACTOBACILLUS ACIDOPHILUS (FLORANEX) TAB PO SCH (13:53)
--- NOTE | 2017-03-05 14:12 | Progress Note ---
Medicine Progress Note Date & Time of Visit: Mar 05, 2017 at 14:12 . Subjective Underwent hemodialysis this morning. Doing well. Minimal cough. No chest pain. No nausea, vomiting, diarrhea. . Objective Last 8 Hrs Date Time Temp Pulse Resp B/P (MAP) Pulse Ox O2 Delivery O2 Flow Rate FiO2 03/05/17 14:00 Nasal Cannula 2.0 03/05/17 13:44 61 16 99 Nasal Cannula 2.5 03/05/17 12: 36.8 62 18 154/70 (98) 95 Nasal Cannula 2.0 03/05/17 12:00 36.7 61 156/60 (92) 03/05/17 11:45 61 163/64 03/05/17 11:30 61 161/72 03/05/17 11:15 62 159/66 03/05/17 11:00 61 161/66 03/05/17 10:45 61 161/66 03/05/17 10:30 61 160/67 03/05/17 10:15 61 153/66 03/05/17 10:00 60 156/61 03/05/17 09:45 60 154/68 03/05/17 09:30 62 153/65 03/05/17 09:15 60 151/66 03/05/17 09:00 60 159/63 03/05/17 08:54 67 147/68 03/05/17 08:50 37.1 70 162/56 (91) 03/05/17 07:32 36.4 61 20 164/76 (105) 100 03/05/17 06:57 67 16 87 Nasal Cannula 2.5 Physical Exam: General- no distress Neck - no JVD Lungs- minimal wheezing Heart- RRR; II/ systolic murmur at base; no gallop Abdomen- + BS, soft, nontender Extremities- trace pretibial edema; no calf tenderness Skin- warm and dry Neuro- alert . Laboratory Results: Last 24 Hours Test 03/04/17 18:32 03/04/17 20:59 03/05/17 05:30 03/05/17 07:46 Bedside Glucose 117 mg/dl 212 mg/dl 271 mg/dl White Blood Count 6.83 K/uL Red Blood Count 2.33 M/uL Hemoglobin 8.3 g/dL Hematocrit 27.1 % Mean Corpuscular Volume 116.3 fL Mean Corpuscular Hemoglobin 35.6 pg Mean Corpuscular Hemoglobin Concent 30.6 g/dl Platelet Count 153 K/uL Mean Platelet Volume 11.1 fL Neutrophils (%) (Auto) 90.6 % Lymphocytes (%) (Auto) 3.1 % Monocytes (%) (Auto) 4.4 % Eosinophils (%) (Auto) 0.0 % Basophils (%) (Auto) 0.1 % Neutrophils # (Auto) 6.19 K/uL Lymphocytes # (Auto) 0.21 K/uL Monocytes # (Auto) 0.30 K/uL Eosinophils # (Auto) 0.00 K/uL Basophils # (Auto) 0.01 K/uL RDW Standard Deviation 75.8 fL RDW Coefficient of Variation 18.8 % Immature Granulocyte % (Auto) 1.8 % Immature Granulocyte # (Auto) 0.12 K/uL Nucleated RBC Absolute Count (auto) 0.04 K/uL Nucleated Red Blood Cells % 0.6 % Polychromasia 1+ Macrocytosis PRESENT Prothrombin Time 22.1 SECONDS Prothromb Time International Ratio 2.1 Sodium Level 133 mmol/L Potassium Level 4.9 mmol/L Chloride Level 97 mmol/L Carbon Dioxide Level 30 mmol/L Anion Gap 6.0 mmol/L Blood Urea Nitrogen 43 mg/dl Creatinine 7.53 mg/dl Est Creatinine Clear Calc Drug Dose 8.2 ml/min Estimated GFR () 5.8 Estimated GFR (Non- 5.0 BUN/Creatinine Ratio 5.7 Random Glucose 297 mg/dl Calcium Level 8.2 mg/dl Hepatitis B Surface Antigen NEG Hepatitis B Surface Antibody NEG Test 03/05/17 12:19 Bedside Glucose 164 mg/dl Assessment & Plan EXACERBATION OF COPD Probably secondary to lower respiratory tract infection. Received IV methylprednisolone with improvement; transitioned to oral steroid therapy with prednisone. Continue bronchodilators. Continue antibiotics as discussed below. O2 desaturation with ambulation; needs O2 @ 4 LPM with ambulation. PROBABLE PNEUMONIA Chest x-ray showed bibasilar densities. Suspected pneumonia. Received azithromycin and IV ampicillin / sulbactam. Transitioned to oral therapy with amoxicillin / clavulanic acid. Cough improved. Discharge on amoxicillin / clavulanic acid to complete 7 days of therapy. CHRONIC HYPOXIC RESPIRATORY FAILURE Due to COPD. Continue O2 2.5 LPM at rest; 4 LPM with activity. PAROXYSMAL ATRIAL FIBRILLATION Continue metoprolol and warfarin. HYPERTENSION Blood pressure this morning 164/76. Continue metoprolol, losartan, clonidine. CKD V Hemodialysis as directed by Nephrology. DM TYPE 2 Generally well-controlled. Hgb A1C 6.1 on 02/01/17. Blood sugars elevated due to acute illness + glucocorticoids. Lantus/NovoLog per protocol. FBS this morning = 271. Stop prednisone. Discharge on usual regimen. ANEMIA Hgb 7.6 on admission. Anemia of chronic kidney disease. Stools heme neg in ED. Hgb today = 8.3. Management per Nephrology. VTE PROPHYLAXIS Continue warfarin. Ambulate. DISPOSITION Discharge to home. Family Medicine follow-up with Dr. Armando. . Consultants: Nephrology . Procedures: Cardiac monitoring Hemodialysis . Current Inpatient Medications: Current Inpatient Medications Medications (Trade) Dose Ordered Sig/Joan Route Start Time Stop Time Status Last Admin Dose Admin Acetaminophen (Tylenol Tab) 650 mg Q4H PRN PO 02/28/17 23:45 03/30/17 23:44 Nitroglycerin (Nitrostat Tab) 0.4 mg UD PRN SL 02/28/17 23:45 03/30/17 23:44 Insulin Aspart (novoLOG ASPART) SLIDING SCALE If C... ACHS SC 03/01/17 07:00 03/31/17 06:59 03/05/17 12:59 3 UNITS Glucose (Glucose 40% Gel) 15-30 GRAMS 15 GRAMS... UD PRN PO 02/28/17 23:45 03/30/17 23:44 Glucose (Glucose Chew Tab) 4-8 Tablets 4 Tabl... UD PRN PO 02/28/17 23:45 03/30/17 23:44 Dextrose (Dextrose 50% 50ML Syringe) 25-50ML OF 50% DW IV FOR... UD PRN IV 02/28/17 23:45 03/30/17 23:44 Glucagon (Glucagon Inj) 1 mg UD PRN SQ 02/28/17 23:45 03/30/17 23:44 Calcium Acetate (Phoslo Cap) 1,334 mg TIDM PO 03/01/17 07:30 03/31/17 07:59 03/05/17 12:55 1,334 MG Clonidine HCl (Catapres Tab) 0.1 mg BID PO 03/01/17 09:00 03/31/17 08:59 03/05/17 12:55 0.1 MG Diltiazem HCl (Cardizem Cd Cap) 120 mg QAM PO 03/01/17 09:00 03/31/17 08:59 03/05/17 12:56 120 MG Furosemide (Lasix Tab) 40 mg DAILY PO 03/01/17 09:00 03/31/17 08:59 03/05/17 13:52 40 MG Losartan Potassium (coZAAR TAB) 100 mg DAILY PO 03/01/17 09:00 03/31/17 08:59 03/05/17 13:52 100 MG Metoprolol Tartrate (Lopressor Tab) 50 mg BID PO 03/01/17 09:00 03/31/17 08:59 03/05/17 12:55 50 MG Prednisolone Acetate (Pred Forte 1% Oph Susp) 1 drops DAILY OPL 03/01/17 09:00 03/31/17 08:59 03/05/17 07:49 1 DROPS Vitamin B Complex/ Vit C/Folic Acid (Nephrocaps) 1 cap DAILY PO 03/01/17 09:00 03/31/17 08:59 03/05/17 13:52 1 CAP Tramadol HCl (Ultram Tab) 25 mg Q6H PRN PO 02/28/17 23:45 03/30/17 23:44 Hydromorphone HCl (Dilaudid Inj) 0.5 mg Q6H PRN IV 02/28/17 23:45 03/14/17 23:44 Prochlorperazine Edisylate 5 mg/ Syringe 5 ml @ 5 mls/min Q6H PRN IV 02/28/17 23:45 03/30/17 23:44 Prednisone (PredniSONE TAB) 40 mg DAILY PO 03/01/17 09:00 03/06/17 08:59 03/05/17 13:53 40 MG Miscellaneous Information (Pharmacy Consult) 1 ea UD PRN N/A 03/01/17 09:00 03/31/17 08:59 Warfarin Sodium (Coumadin Tab) 5 mg DAILY@16 PO 03/01/17 16:00 03/31/17 15:59 Future hold 03/04/17 19:13 5 MG Miscellaneous Information (Pending Order) 1 ea DAILY@10 N/A 03/01/17 10:00 03/31/17 09:59 03/01/17 10:00 1 EA Ipratropium [place] (Atrovent 0.02% 0.5MG/2.5ML Neb) 0.5 mg Q6R INH 03/01/17 03:00 03/31/17 02:59 03/05/17 13:42 0.5 MG Levalbuterol (Xopenex 1.25MG/ 0.5ML Neb) 1.25 mg Q6R INH 03/01/17 03:00 03/31/17 02:59 03/05/17 13:43 1.25 MG Ipratropium [place] (Atrovent 0.02% 0.5MG/2.5ML Neb) 0.5 mg Q4H PRN INH 03/01/17 01:00 03/31/17 00:59 Levalbuterol (Xopenex 1.25MG/ 0.5ML Neb) 1.25 mg Q4H PRN INH 03/01/17 01:00 03/31/17 00:59 Amoxicillin/ Clavulanate Potassium (Augmentin Tab) 500 mg QDB PO 03/01/17 07:30 03/08/17 07:29 03/04/17 18:35 500 MG Lidocaine/ Prilocaine (Emla 2.5% Crm) 1 ea UD PRN EXT 03/01/17 09:45 03/31/17 09:44 03/01/17 12:16 1 EA Lactobacillus Acidophilus (Floranex Tab) 4 tab DAILY PO 03/02/17 09:00 04/01/17 08:59 03/05/17 13:53 4 TAB Insulin Glargine (Lantus Solostar Pen) BSG UNITS LANTUS... QAM SC 03/02/17 09:00 03/31/17 08:59 03/05/17 07:56 32 UNITS Amoxicillin/ Clavulanate Potassium (Augmentin Tab) 250 mg TuThSa@1200,1600 PO 03/03/17 12:00 03/08/17 07:59 03/05/17 12:56 250 MG Codeine Phosphate/ Guaifenesin (Robitussin-AC Sugar Free Syrup) 10 ml QID PO 03/03/17 12:00 04/02/17 11:59 03/05/17 12:55 10 ML Benzonatate (Tessalon Perles Cap) 100 mg Q8H PRN PO 03/03/17 10:00 04/02/17 09:59 Albumin Human (Albumin 25%) 12.5 gm TODAY@0900,1000 IV 03/05/17 09:00 03/05/17 16:00 03/05/17 09:00 12.5 GM
[2017-03-05] MEDS ORDERED: FLUCONAZOLE 100 MG TAB PO ONE (14:15)
[2017-03-05] MEDS ORDERED: AMOX500T PO (14:20)
--- NOTE | 2017-03-05 14:29 | Discharge Instructions ---
Discharge Instructions Date of Service Mar 05, 2017. Admission Reason for Admission: cough, trouble breathing . Discharge Discharge Diagnosis / Problem: pneumonia, worsening COPD Discharge Goals Goal(s): Improve disease control Activity Recommendations Activity Limitations: resume your previous activity . Instructions / Follow-Up Instructions / Follow-Up APPOINTMENTS: FAMILY MEDICINE 03/14/2017 12:40 PM Noam Armando MD OTHER INSTRUCTIONS: Chest x-ray showed suspected pneumonia. Take amoxicillin / clavulanic acid (Augmentin) daily with food for 2 more days. Continue oxygen 2.5 liters / minute when you are at rest, increase to 4 liters / minute when you are walking. Please ask Dr. Armando to schedule repeat chest x-ray in about 1 month to make sure that pneumonia clears up. Seek medical attention if you have: * temperature above 101 * worsening cough or trouble breathing * chest pain or trouble breathing * abdominal pain, nausea, vomiting * diarrhea, dark stools or bloody stools * any unanswered questions or concerns Call 911 if symptoms are severe. Call if you have any questions or problems. My cell # is [phone]. You can also reach a [facility] hospitalist on duty at [facility] 24 hours a day by calling [phone]. Please take good care of yourself. Dejon Cabrera . Current Hospital Diet Patient's current hospital diet: Diabetes Type 2 Diet, Renal Diet Discharge Diet Recommended Diet: Diabetes Type 2 Diet, Renal Diet Pending Studies Studies pending at discharge: no Laboratory Results Hemoglobin A1c Test 02/01/17 05:25 Range/Units Estimated Average Glucose 128 mg/dl Hemoglobin A1c 6.1 H 4.5-5.6 % Lipid Panel Test 02/09/17 04:18 Range/Units Triglycerides Level 89 0-150 mg/dl Cholesterol Level 87 0-200 mg/dl HDL Cholesterol 36 mg/dl Cholesterol/HDL Ratio 2.4 LDL Cholesterol, Calculated 33 mg/dl Medical Emergencies . Who to Call and When: Medical Emergencies: If at any time you feel your situation is an emergency, please call 911 immediately. . Non-Emergent Contact Non-Emergency issues call your: Primary Care Provider, Hospital Doctor, Approver . . "Provider Documentation" section prepared by Dejon Cabrera. . VTE Core Measure Inpt VTE Proph given/why not?: Warfarin (Coumadin)
[2017-03-05] MEDS: AMOXICILLIN/CLAVULANATE TAB 500 MG TAB PO SCH (14:48)
--- NOTE | 2017-03-05 19:12 | Discharge Summary ---
Discharge Summary Date of Service Mar 05, 2017. Discharge Summary Admission Date: Feb 28, 2017 at 22:49 Discharge Date: Mar 05, 2017 Discharge Disposition: Home Principal Diagnosis: exacerbation of COPD suspected bibasilar pneumonia . Secondary Diagnoses/Problems: Chronic and Resolved Medical Problems: (1) A-fib Permanent Comment: paroxysmal Status: Chronic (2) Adrenal adenoma Status: Chronic (3) Anemia of chronic disease Status: Chronic (4) AV fistula Status: Chronic (5) Chronic respiratory failure Status: Chronic (6) Chronic respiratory failure with hypoxia Status: Chronic (7) COPD, moderate Status: Chronic (8) DM type 2 (diabetes mellitus, type 2) Status: Chronic (9) Dyslipidemia Status: Chronic (10) ESRD (end stage renal disease) on dialysis Status: Chronic (11) H/O cardiovascular stress test Permanent Comment: 05/2013 - negative for ischemia Status: Chronic (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 (13) History of Helicobacter pylori infection Status: Chronic (14) Hypertension Nos Status: Chronic (15) Moderate mitral regurgitation Permanent Comment: moderate to severe on 12/2015 echo Status: Chronic (16) Obesity Status: Chronic (17) Osteoarthritis Status: Chronic (18) Pancreatic cyst Status: Chronic (19) Psoriasis Status: Chronic (20) Renal cyst Status: Chronic Surgical Problems: (1) H/O colonoscopy Permanent Comment: 2005, hyperplastic polyps repeat in 10 years Status: Chronic (2) H/O nasal polypectomy Status: Chronic (3) History of cataract surgery Status: Chronic (4) S/P appendectomy Permanent Comment: 1971 Status: Chronic (5) S/P cholecystectomy Permanent Comment: 1971 Status: Chronic (6) S/P left oophorectomy Permanent Comment: 1981 Status: Chronic (7) S/P ASH (total abdominal hysterectomy) Permanent Comment: For Fibroids Status: Chronic . Procedures: Cardiac monitoring Hemodialysis . Consultations: Nephrology . Medication Reconciliation New Medications: Amoxicillin & Pot Clavulanate (Augmentin 500MG) 1 Tab Tab 500 MG PO DAILY, #2 TAB take with food Continued Medications: Acetaminophen (Apap) 325 Mg Tab 650 MG PO Q6 PRN for Pain Albuterol Hfa (Ventolin Hfa) 200 Puffs/65097 Mcg Aers 2 PUFFS INH Q4 PRN for SOB/Wheezing Calcium Acetate (Phoslo 667 Mg) 667 Mg Cap 2 CAP PO TIDM, CAP Clonidine Hcl (Catapres) 0.1 Mg Tab 0.1 MG PO BID, TAB Cyanocobalamin (Cyanocobalamin) 1,000 Mcg/Ml Inj 1000 MCG IM MONTHLY Diltiazem Hcl Coated Beads (Diltiazem Cd) 120 Mg Cap 120 MG PO QAM, CAP Epoetin Hakan (Procrit) 10,000 Units Inj per dialysis clinic Ergocalciferol (Vitamin D 88011 Unit) 50,000 Unit Cap 46708 UNIT PO MONTHLY, CAP 9th Fluticasone Prop/Salmeterol (Advair Diskus 250/50 60 Dose) 1 Ea Aerp 2 PUFF INH BID Furosemide (Furosemide) 40 Mg Tab 40 MG PO DAILY Home O2 Therapy (Oxygen) Gas 2.5 LITERS NA CONTINOUS Insulin Aspart (Novolog Flexpen) 100 Units/Ml Inj 2-3 UNITS SQ TIDM TAKES PER SLIDING SCALE Insulin Glargine (Lantus) 100 Unit/Ml Inj 26 UNITS SC QAM, VIAL Ipratropium-Albuterol (Duoneb) 3 Ml Nebu 1 TREATMENT INH QID PRN for SOB/Wheezing, INHA Lactobacillus (Lactobacillus) 1 Tab Tab 1 TAB PO UD Lidocaine-Prilocaine (Awcvdcpgs-Ridunyflnl-Gypq 2.5-2.5 %) 1 Cre Cre 1 APPLN TOP UD PRN for PRIOR TO DIALYSIS APPLY SMALL AMT TO ACCESS SITE 1-2 HOURS BEFORE DIALYSIS. COVER WITH SARAN WRAP Losartan Potassium (Cozaar) 100 Mg Tab 100 MG PO DAILY, TAB Metoprolol Tartrate (Lopressor) (Lopressor) 50 Mg Tab 50 MG PO BID, TAB Prednisolone Acetate (Ophth) (Pred Forte 1% Oph) 1 % Neena 1 DROPS OPL DAILY, #5 ML Umeclidinium [place] (Incruse Ellipta) 62.5 Mcg/Inh Inh 1 PUFF INH DAILY, #30 Valacyclovir Hcl (Valtrex) 1 Gm Tab 1000 MG PO DAILY, TAB Vitamin B Cmplx/Vitc/Folic Ac (Nephrocaps) Cap 1 CAP PO DAILY, CAP Warfarin Sod (Coumadin) 5 Mg Tab 5 MG PO 3XWK TAKE 5 MG EVERY TUESDAY/TUESDAY/TUESDAY. Warfarin Sod (Coumadin) 7.5 Mg Tab 7.5 MG PO 4XWK 1 1/2 TABLET DOSE EVERY TUESDAY/TUESDAY/TUESDAY/TUESDAY. Admission Information HPI (per Admitting provider): Medical history is significant for chronic diastolic heart failure, EF of 65-70 %. chronic respiratory failure secondary to COPD on home O2, past tobacco abuse, end-stage renal disease on hemodialysis, chronic anemia (baseline hemoglobin of 7-9), PAF on Coumadin, peripheral vascular disease as per records, Recent confinement last January 2017 for decompensated heart failure. Few days history of cough symptoms, productive of yellow white sputum, occasional coughing with meals and water. chest pain from coughing, increasing shortness of breath. No unusual fluid retention. Denies abdominal pain, black bloody stools, hematuria. At the Emergency Room, the patient received Solu-Medrol, azithromycin, nebs for possible COPD exacerbation. . Physical Exam (per Admitting): VITAL SIGNS: Blood pressure was noted to be 178/70, pulse rate 60, RR 22, temperature 36.7, sats 78 on 2 liters, later 91 on 6 liters. GENERAL: Noted to be in minimal respiratory distress, chronically ill. SKIN: Sallow, warm. HEENT: Pale palpebral conjuctivae. mild drooping, tearing on the left (chronic ). Dry buccal mucosa. O2 mask noted. NECK: Short neck. JVD not assessed. No tenderness. LUNGS: Decreased breath sounds. Expiratory wheezes more on the right. HEART: Regular rate and rhythm. Systolic murmur. ABDOMEN: Some distension, nontender. RECTAL EXAN : Intact sphincter, brown stool, heme negative. EXTREMITIES: Minimal LE edema, no tenderness. No gross deformities. NEUROLOGIC: Coherent. No gross focality. . Hospital Course EXACERBATION OF COPD Presented with cough and increasing dyspnea. Chest x-ray showed bibasilar densities. Exacerbation of COPD probably secondary to lower respiratory tract infection. Received IV methylprednisolone with improvement; transitioned to oral steroid therapy with prednisone. Continue bronchodilators. Received antibiotics as discussed below. O2 desaturation with ambulation; needs O2 @ 4 LPM with ambulation. PROBABLE PNEUMONIA Chest x-ray showed bibasilar densities. Suspected pneumonia. Received azithromycin and IV ampicillin / sulbactam. Transitioned to oral therapy with amoxicillin / clavulanic acid. Cough and bronchospasm improved. Discharged on amoxicillin / clavulanic acid to complete 7 days of therapy. CHRONIC HYPOXIC RESPIRATORY FAILURE Due to COPD. Continue O2 2.5 LPM at rest; 4 LPM with activity. PAROXYSMAL ATRIAL FIBRILLATION Continue metoprolol and warfarin. INR 2.1 day of discharge. HYPERTENSION Blood pressure day of discharge 164/76. Continue metoprolol, losartan, clonidine. CKD V Hemodialysis as directed by Nephrology. DM TYPE 2 Generally well-controlled. Hgb A1C 6.1 on 02/01/17. Blood sugars elevated due to acute illness + glucocorticoids. Lantus/NovoLog per protocol. FBS day of discharge 271. Stopped prednisone. Discharge on usual regimen. ANEMIA Hgb 7.6 on admission. Anemia of chronic kidney disease. Stools heme neg in ED. Hgb day of discharge 8.3. Management per Nephrology. VTE PROPHYLAXIS Continue warfarin. Ambulate. DISPOSITION Discharge to home. Family Medicine follow-up with Dr. Armando. . Total time spent on discharge = 40 min. This includes examination of the patient, discharge planning, medication reconciliation, and communication with other providers. . Discharge Instructions Date of Service Mar 05, 2017. Admission Reason for Admission: cough, trouble breathing . Discharge Discharge Diagnosis / Problem: pneumonia, worsening COPD Discharge Goals Goal(s): Improve disease control Activity Recommendations Activity Limitations: resume your previous activity . Instructions / Follow-Up Instructions / Follow-Up APPOINTMENTS: FAMILY MEDICINE 03/14/2017 12:40 PM Noam Armando MD OTHER INSTRUCTIONS: Chest x-ray showed suspected pneumonia. Take amoxicillin / clavulanic acid (Augmentin) daily with food for 2 more days. Continue oxygen 2.5 liters / minute when you are at rest, increase to 4 liters / minute when you are walking. Please ask Dr. Armando to schedule repeat chest x-ray in about 1 month to make sure that pneumonia clears up. Seek medical attention if you have: * temperature above 101 * worsening cough or trouble breathing * chest pain or trouble breathing * abdominal pain, nausea, vomiting * diarrhea, dark stools or bloody stools * any unanswered questions or concerns Call 911 if symptoms are severe. Call if you have any questions or problems. My cell # is [phone]. You can also reach a [facility] hospitalist on duty at [facility] 24 hours a day by calling [phone]. Please take good care of yourself. Dejon Cabrera . Current Hospital Diet Patient's current hospital diet: Diabetes Type 2 Diet, Renal Diet Discharge Diet Recommended Diet: Diabetes Type 2 Diet, Renal Diet Pending Studies Studies pending at discharge: no Laboratory Results Hemoglobin A1c Test 02/01/17 05:25 Range/Units Estimated Average Glucose 128 mg/dl Hemoglobin A1c 6.1 H 4.5-5.6 % Lipid Panel Test 02/09/17 04:18 Range/Units Triglycerides Level 89 0-150 mg/dl Cholesterol Level 87 0-200 mg/dl HDL Cholesterol 36 mg/dl Cholesterol/HDL Ratio 2.4 LDL Cholesterol, Calculated 33 mg/dl Medical Emergencies . Who to Call and When: Medical Emergencies: If at any time you feel your situation is an emergency, please call 911 immediately. . Non-Emergent Contact Non-Emergency issues call your: Primary Care Provider, Hospital Doctor, License Clerk . . "Provider Documentation" section prepared by Dejon Cabrera. . VTE Core Measure Inpt VTE Proph given/why not?: Warfarin (Coumadin) .
--- NOTE | 2017-03-10 08:01 | EDITING REQUIRED CODING QUERY ---
CODING QUERY To promote full compliance with coding requirements relating to patient care, provider participation is requested in all cases of surgical coder uncertainty. Please assist us with the question(s) below: Coding Question(s): Patient admitted with COPD exacerbation and underlying Pneumonia and respiratory failure. Regarding the respiratory failure, please check below the diagnosis you were treating during this Inpatient Stay. Thank you. Roberto Abraham [facility] Physician's Response(s): Acute Respiratory Failure __x____ Acute on Chronic Respiratory Failure Chronic Respiratory Failure Cannot Clinically Correlate Other/ Please document: Admitting provider documented acute on chronic hypoxic respiratory failure in his H&P. Principal Diagnosis: "_that condition established after study, to be chiefly responsible for occasioning the admission of the patient to the hospital for care." Co-Existing Principal Diagnosis: "_when two or more diagnoses equally meet the criteria for principal diagnosis as determined by the circumstances of admission, diagnostic work up, and/or therapy provided, and the Alphabetic Index, Tabular List, or another coding guideline does not provide sequencing direction, any one of the diagnoses may be sequenced first." "When the physician has documented what appears to be a current diagnosis in the body of the record, but has not included the diagnosis in the final diagnostic statement, the physician should be asked whether the diagnosis should be added." ([facility] 2 QTR90. p3-4)
== END 2017-03-05 16:43 | disposition home or self-care (01) | DRG 189 ==
LOC: EDBD 19:02 → C.EDB 19:08 → C.2E 22:49 → ENRESERV 23:03 → C.4E 03-02 18:16
PROVIDERS: ADMIT Internal Medicine; ATTEND Hospitalist
PROC: 5A1D70Z Performance of Urinary Filtration, Intermittent, Less than 6 Hours Per Day (ICD-10-PCS; principal; 2017-03-03)
DX: J96.21 Acute and chronic respiratory failure with hypoxia (principal); J44.0 Chronic obstructive pulmonary disease with (acute) lower respiratory infection; J44.1 Chronic obstructive pulmonary disease with (acute) exacerbation; N18.6 End stage renal disease; I13.2 Hypertensive heart and chronic kidney disease with heart failure and with stage 5 chronic kidney disease, or end stage renal disease; J18.9 Pneumonia, unspecified organism; K86.2 Cyst of pancreas; I50.32 Chronic diastolic (congestive) heart failure; I48.0 Paroxysmal atrial fibrillation; B00.51 Herpesviral iridocyclitis; E11.21 Type 2 diabetes mellitus with diabetic nephropathy; Z87.891 Personal history of nicotine dependence; E78.5 Hyperlipidemia, unspecified; E66.9 Obesity, unspecified; Z79.4 Long term (current) use of insulin; I73.9 Peripheral vascular disease, unspecified; Z79.01 Long term (current) use of anticoagulants; D63.1 Anemia in chronic kidney disease; D35.00 Benign neoplasm of unspecified adrenal gland; I34.0 Nonrheumatic mitral (valve) insufficiency; Z99.2 Dependence on renal dialysis; N25.0 Renal osteodystrophy

== ENCOUNTER 2017-05-14 05:39 | Inpatient (IN) | payer OTHER ==
[2017-05-14] VITALS (22 sets, daily range): BP systolic 119–182; BP diastolic 53–97; PULSE 55–67; TEMP 36.9–37.1; O2SAT 88–96; Ht 167.6 cm; Wt 92.4 kg
[~2017-05-14] VITALS: Ht 167.6 cm; Wt 92.4 kg
[~2017-05-14 05:39] MED LIST changes: +CMD5 PO; +CMD75 PO; -DILT-202 PO; +DILT120C99 PO; -WARF-246 PO
--- NOTE | 2017-05-14 06:03 | EMERGENCY ROOM VISIT NOTE ---
History Report prepared by Sebastian: Freddy Carvajal Under the Supervision of: Dr. Jeanette Phillips D.O. First contact with patient: 05:47 Chief Complaint: SHORTNESS OF BREATH Stated Complaint: RESPIRATORY DIFFICULTY Nursing Triage Summary: Pt brought in by EMS. Pt with increasing SOB for 3 days. Pt recently finished antibiotics for pneumonia. Pt has history of COPD, Chronic renal failure and is due for dialysis today. Pt has been using nebulizer treatments with no relief. Pt is on O2 at 3lpm at home. EMS report O2 sat were 68%. Pt was placed on CPAP. History of Present Illness The patient is a 72 year old female who presents to the Emergency Room via EMS with complaints of worsening shortness of breath that began 3 days ago. Patient has associated symptoms of chest tightness, productive cough, and runny nose. Patient states that she uses Advair, a nebulizer, and 3L of oxygen at home. She states that the last time she was on prednisone was the last time she was in the ED. She adds that her breathing has been slightly better since coming to the ED. Patient states that she gets dialysis on Tuesday, , and Tuesday. Patient does not know if she has had a fever recently. She states that she has had trouble sleeping for the last 3 days. She denies abdominal pain. Pertinent past medical history includes COPD. Source of History: patient Onset: 3 days ago Position: chest Timing: worsening Modifying Factors (Relieving): other (None) Associated Symptoms: + cough, No abdominal pain Note: Patient has chest tightness and runny nose. Review of Systems See HPI for pertinent positives & negatives. A total of 10 systems reviewed and were otherwise negative. 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 (16) History of Helicobacter pylori infection (17) Hypertension Nos (18) Moderate mitral regurgitation (19) Obesity (20) Osteoarthritis (21) Pancreatic cyst (22) Psoriasis (23) Renal cyst (24) Respiratory failure, acute (25) SOB (shortness of breath) Surgical Problems: (1) H/O colonoscopy (2) H/O nasal polypectomy (3) History of cataract surgery (4) S/P appendectomy (5) S/P cholecystectomy (6) S/P left oophorectomy (7) S/P ASH (total abdominal hysterectomy) Family History Diabetes mellitus FATHER MOTHER BROTHER FH: cancer BROTHER FH: heart disease FATHER Hypertension BROTHER Kidney disease BROTHER Social History Smoking Status: Former Smoker Drug Use: none Marital Status: Housing Status: lives with family Occupation Status: retired Current/Historical Medications Scheduled Calcium Acetate (Phoslo 667 Mg), 2 CAP PO TIDM Camphor & Menthol (Sarna), 1 APPLN TD PRN Clonidine Hcl (Catapres), 0.1 MG PO BID Cyanocobalamin (Cyanocobalamin), 1,000 MCG IM MONTHLY Diltiazem Hcl Coated Beads (Diltiazem Cd), 120 MG PO QAM Ergocalciferol (Vitamin D 03100 Unit), 50,000 UNIT PO MONTHLY Fluticasone Prop/Salmeterol (Advair Diskus 250/50 60 Dose), 2 PUFF INH BID Furosemide (Furosemide), 40 MG PO DAILY Home O2 Therapy (Oxygen), 2.5 LITERS NA CONTINOUS Insulin Aspart (Novolog Flexpen), 2-3 UNITS SQ TIDM Insulin Glargine (Lantus), 26 UNITS SC QAM Losartan Potassium (Cozaar), 100 MG PO DAILY Metoprolol Tartrate (Lopressor) (Lopressor), 50 MG PO BID Prednisolone Acetate (Ophth) (Pred Forte 1% Oph), 1 DROPS OPL DAILY Umeclidinium [place] (Incruse Ellipta), 1 PUFF INH DAILY Valacyclovir Hcl (Valtrex), 1,000 MG PO DAILY Vitamin B Cmplx/Vitc/Folic Ac (Nephrocaps), 1 CAP PO DAILY Warfarin Sod (Coumadin), 5 MG PO 3XWK Warfarin Sod (Coumadin), 7.5 MG PO 4XWK Scheduled PRN Acetaminophen (Apap), 650 MG PO Q6 PRN for Pain Albuterol Hfa (Ventolin Hfa), 2 PUFFS INH Q4 PRN for SOB/Wheezing Dicyclomine Hcl (Dicyclomine Hcl), 20 MG PO Q6H PRN for CRAMPING Ipratropium-Albuterol (Duoneb), 1 TREATMENT INH QID PRN for SOB/Wheezing Lidocaine-Prilocaine (Rgomhezdt-Vscebaggjl-Htnb 2.5-2.5 %), 1 APPLN TOP UD PRN for PRIOR TO DIALYSIS Loperamide Hcl (Loperamide Hcl), 2 MG PO QID PRN for Diarrhea Miscellaneous Medications Epoetin [place] (Procrit) Allergies Coded Allergies: No Known Allergies (Verified , 02/08/17) Physical Exam Vital Signs Date Time Temp Pulse Resp B/P (MAP) Pulse Ox O2 Delivery O2 Flow Rate FiO2 05/14/17 08:36 64 26 175/61 93 Nasal Cannula 3.0 05/14/17 06:50 62 26 175/66 93 Nasal Cannula 3.0 05/14/17 06:22 63 05/14/17 05:49 95 Nasal Cannula 3.0 05/14/17 05:49 95 Nasal Cannula 3.0 05/14/17 05:44 95 Nasal Cannula 3.0 05/14/17 05:38 36.8 62 28 183/93 94 Nasal Cannula 3.0 Physical Exam General: Patient appears in mild respiratory distress. HEENT: Head - normocephalic and atraumatic Pupils are equal, round, and reactive to light. Extraocular eye muscles are intact, and sclera are anicteric. There is some mild edema noted to the right upper eyelid. Nose - moist nasal mucosa without discharge. Mouth - moist buccal mucosa. Oropharynx is nonerythematous and there is no tonsillar exudate or edema noted. Neck: Supple; no JVD, nuchal rigidity, cervical lymphadenopathy, or auscultated bruits. Heart: Regular rate and rhythm. There is a normal S1 and S2 with no murmurs, clicks, or gallops appreciated. Lungs: Diminished breath sounds in all lung geller with expiratory wheezing at the bases. No rales or rhonchi. Abdomen: Soft, completely nontender, nondistended, with good bowel sounds. There are no palpable pulsatile masses or hepatosplenomegaly. There is no guarding, rigidity, or rebound noted. Extremities: No evidence of cyanosis or clubbing. Trace pedal edema. There are easily palpable peripheral pulses. Skin: warm and dry with good turgor and no rashes. Medical Decision & Procedures ER Provider Diagnostic Interpretation: Radiology results as stated below per my review and the radiologist's interpretation: CHEST ONE VIEW PORTABLE HISTORY: Sepsis COMPARISON: Chest 02/28/2017. FINDINGS: Progressive right basilar airspace opacity. Patchy densities at the left lung base have improved. The heart remains mildly enlarged. No evidence for pulmonary edema. No pneumothorax. Suspect a trace right pleural effusion. IMPRESSION: 1. Progressive airspace opacity within the right lower lobe. This likely represents a pneumonia. 2. Improved aeration within the left lung base. 3. Trace right pleural effusion, unchanged. Electronically signed by: Dave Castañeda M.D. 05/14/2017 7:30 AM Laboratory Results Test 05/14/17 05:22 05/14/17 06:00 05/14/17 06:15 05/14/17 06:24 Immature Granulocyte % (Auto) 0.4 % White Blood Count 7.31 K/uL (4.8-10.8) Red Blood Count 3.30 M/uL (4.2-5.4) Hemoglobin 11.4 g/dL (12.0-16.0) Hematocrit 37.2 % (37-47) Mean Corpuscular Volume 112.7 fL (80-100) Mean Corpuscular Hemoglobin 34.5 pg (25-34) Mean Corpuscular Hemoglobin Concent 30.6 g/dl (32-36) Platelet Count 164 K/uL (130-400) Mean Platelet Volume 11.1 fL (7.4-10.4) Neutrophils (%) (Auto) 83.1 % Lymphocytes (%) (Auto) 7.5 % Monocytes (%) (Auto) 7.1 % Eosinophils (%) (Auto) 1.5 % Basophils (%) (Auto) 0.4 % Neutrophils # (Auto) 6.07 K/uL (1.4-6.5) Lymphocytes # (Auto) 0.55 K/uL (1.2-3.4) Monocytes # (Auto) 0.52 K/uL (0.11-0.59) Eosinophils # (Auto) 0.11 K/uL (0-0.5) Basophils # (Auto) 0.03 K/uL (0-0.2) Immature Granulocyte # (Auto) 0.03 K/uL (0.00-0.02) Macrocytosis PRESENT Ovalocytes 1+ Activated Partial Thromboplast Time 36.9 SECONDS (21.0-31.0) Partial Thromboplastin Ratio 1.4 Procalcitonin 0.22 ng/ml (0-0.5) Influenza Type A Antigen Neg for Influ A (NEG) Influenza Type B Antigen Neg for Influ B (NEG) Total Bilirubin 0.9 mg/dl (0.2-1) Aspartate Amino Transf (AST/SGOT) 35 U/L (15-37) Alanine Aminotransferase (ALT/SGPT) 54 U/L (12-78) Alkaline Phosphatase 99 U/L (45-117) Total Creatine Kinase 51 U/L (26-192) Creatine Kinase MB 0.8 ng/ml (0.5-3.6) Creatine Kinase MB Ratio 1.6 (0-3.0) Troponin I < 0.015 ng/ml (0-0.045) Pro-B-Type Natriuretic Peptide 18087 pg/ml (0-900) Total Protein 6.6 gm/dl (6.4-8.2) Albumin 3.3 gm/dl (3.4-5.0) Globulin 3.3 gm/dl (2.5-4.0) Albumin/Globulin Ratio 1.0 (0.9-2) Bedside Lactic Acid Venous 1.22 mmol/L (0.90-1.70) Laboratory results per my review. Medications Administered Medications (Trade) Dose Ordered Sig/Joan Route Start Time Stop Time Status Last Admin Dose Admin Albuterol/ Ipratropium (Duoneb) 3 ml NOW STAT INH 05/14/17 06:05 05/14/17 06:06 DC 05/14/17 06:29 3 ML Levofloxacin (Levaquin / D5W) 750 mg NOW STAT IV 05/14/17 07:36 05/14/17 07:38 DC 05/14/17 08:36 750 MG Piperacillin Sod/ Tazobactam Sod (Zosyn Iv) 4.5 gm NOW STAT IV 05/14/17 07:36 05/14/17 07:38 DC 05/14/17 07:56 4.5 GM Methylprednisolone Sodium Succinate (Solu-Medrol IV) 125 mg NOW STAT IV 05/14/17 07:38 05/14/17 07:39 DC 05/14/17 07:56 125 MG Procedure Duoneb 3ml INH, Zosyn Iv 4.5gm IV, Levofloxacin 750mg IV, and Solu-Medrol IV 125mg IV. ECG Per My Interpretation Indication: SOB/dyspnea Rate (beats per minute): 59 Rhythm: sinus bradycardia Findings: no acute ischemic change, no ectopy ED Course 0555: Past medical records reviewed. The patient was evaluated in room A11. A complete history and physical exam was performed. IV lock was established and labs were drawn as above. A 12-lead EKG was obtained as described above. A portable chest x-ray was obtained as described above. 0601: Patient's electrocardiogram was interpreted by me. 0605: Duoneb 3ml INH 0720: I reassessed the patient who is sound asleep. Patient's oxygen saturation is 90%. 0736: Zosyn Iv 4.5gm IV and Levofloxacin 750mg IV 0738: Solu-Medrol IV 125mg IV 0800: Upon reevaluation, I discussed findings and results with her. She verbalized agreement of the treatment plan. I spoke with Dr. Schneider of the [facility]. The patient will be evaluated for further management and care. Medical Decision The patient is a 72 year old female who presents to the ED with shortness of breath. Differential diagnosis includes pneumonia, COPD exacerbation, congestive heart failure, influenza, and hypercarbic respiratory failure. Lab results show influenza was negative, BNP = 2113, troponin less than 0.015, glucose = 169, creatinine = 9.5 which is baseline, no leukocytosis, hemoglobin = 11.4 which is baseline, INR = 1.7, and lactic acid = 1.22. This is a 72-year-old female patient with history of COPD who presents to the emergency department with increasing shortness of breath, runny nose and cough. She is afebrile with no significant leukocytosis. For EMS, the patient was in significant respiratory distress. Upon arrival here in the emergency department after having been on CPAP, the patient appears much more comfortable. She admits that she is breathing more easily. She was saturating normally on a nasal cannula. Chest x-ray shows evidence of a pneumonia. She was treated with IV Levaquin and Zosyn. She was given a dose of IV steroids. The patient had no complaints of chest pain while here in the emergency department. EKG was unchanged and cardiac enzymes were negative. I discussed the case with the hospitalist and they will evaluate for further management. Medication Reconcilliation Current Medication List: was personally reviewed by me Blood Pressure Screening Patient's blood pressure: Elevated blood pressure Addressed as an inpatient. Consults Time Called: 07 Consulting Physician: Dr. Wyatt Murcia Hospitalist Returned Call: [phone] Discussed the patient's case. The patient will be evaluated for further management. Impression Primary Impression: Hypoxia Additional Impression: Right lower lobe pneumonia Scribe Attestation The scribe's documentation has been prepared under my direction and personally reviewed by me in its entirety. I confirm that the note above accurately reflects all work, treatment, procedures, and medical decision making performed by me. Departure Information Dispostion Being Evaluated By Hospitalist Referrals Noam Armando M.D. (PCP) Forms HOME CARE DOCUMENTATION FORM, IMPORTANT VISIT INFORMATION Patient Instructions My [facility] Problem Qualifiers Additional Impression: Right lower lobe pneumonia Pneumonia type: due to unspecified organism Qualified Codes: J18.1 - Lobar pneumonia, unspecified organism
[2017-05-14] MEDS ORDERED: ALBUT/IPRATROP 3MG/0.5MG NEB 3 ML VIAL INH STA (06:05)
[2017-05-14 06:26] LABS: BASO % 0.4 %; BASO ABS # 0.03 K/uL (0-0.2); EOS % 1.5 %; EOS ABS # 0.11 K/uL (0-0.5); HEMATOCRIT 37.2 % (37-47); HEMOGLOBIN 11.4 g/dL (12.0-16.0); IG# 0.03 K/uL (0.00-0.02); LYMPH % 7.5 %; LYMPH ABS # 0.55 K/uL (1.2-3.4); MEAN CELL VOLUME 112.7 fL (80-100); MEAN CORPUSCULAR HEMOGLOBIN 34.5 pg (25-34); MEAN CORPUSCULAR HGB CONC 30.6 g/dl (32-36); MEAN PLATELET VOLUME 11.1 fL (7.4-10.4); MONO % 7.1 %; MONO ABS # 0.52 K/uL (0.11-0.59); NEUT % 83.1 %; NEUT ABS # 6.07 K/uL (1.4-6.5); PLATELET COUNT 164 K/uL (130-400); RED CELL DISTRIBUTION WIDTH CV 16.5 % (11.5-14.5); RED CELL DISTRIBUTION WIDTH SD 67.9 fL (36.4-46.3); WHITE BLOOD COUNT 7.31 K/uL (4.8-10.8)
[2017-05-14 06:38] LABS: INR 1.7 (0.9-1.1); PTT PATIENT 36.9 SECONDS (21.0-31.0)
[2017-05-14] MEDS ORDERED: DICY20TA10 PO (06:38)
[2017-05-14] MEDS ORDERED: LOPE1TAB25 PO (06:40)
[2017-05-14] MEDS ORDERED: IPRASOL4 INH (06:42)
[2017-05-14] MEDS ORDERED: CAMPLOT10 TD (06:48)
[2017-05-14] MEDS ORDERED: B-COTAB18 PO (06:51)
[2017-05-14 07:08] LABS: INFLUENZA B ANTIGEN Neg for Influ B (NEG)
[2017-05-14 07:26] LABS: ALBUMIN 3.3 gm/dl (3.4-5.0); ALKALINE PHOSPHATASE 99 U/L (45-117); ALT/SGPT 54 U/L (12-78); BLOOD UREA NITROGEN 38 mg/dl (7-18); CALCIUM 9.2 mg/dl (8.5-10.1); CARBON DIOXIDE 29 mmol/L (21-32); CKMB 0.8 ng/ml (0.5-3.6); GLUCOSE 169 mg/dl (70-99); TOTAL PROTEIN 6.6 gm/dl (6.4-8.2)
[2017-05-14 07:28] LABS: CREATININE 9.57 mg/dl (0.60-1.20)
[2017-05-14 07:30] LABS: POTASSIUM 4.7 mmol/L (3.5-5.1); SODIUM 138 mmol/L (136-145)
--- NOTE | 2017-05-14 07:31 | DIAGNOSTIC IMAGING REPORT ---
CHEST ONE VIEW PORTABLE HISTORY: Sepsis COMPARISON: Chest 02/28/2017. FINDINGS: Progressive right basilar airspace opacity. Patchy densities at the left lung base have improved. The heart remains mildly enlarged. No evidence for pulmonary edema. No pneumothorax. Suspect a trace right pleural effusion. IMPRESSION: 1. Progressive airspace opacity within the right lower lobe. This likely represents a pneumonia. 2. Improved aeration within the left lung base. 3. Trace right pleural effusion, unchanged. Electronically signed by: Dave Castañeda M.D. 05/14/2017 7:30 AM Dictated Date/Time: 05/14/2017 7:28 AM
[2017-05-14] MEDS ORDERED: PIPERACILLIN/TAZOBACTAM 4.5 GM/100ML D5W IV STA (07:36)
[2017-05-14] MEDS ORDERED: LEVAQUIN 750MG / 150ML D5W IV STA (07:36)
[2017-05-14] MEDS ORDERED: METHYLPREDNISOLONE 125 MG VIAL IV STA (07:38)
[2017-05-14 07:39] LABS: AST/SGOT 35 U/L (15-37)
[2017-05-14] MEDS ORDERED: DEXTROSE 50% 50 ML SYR IV PRN (08:45)
[2017-05-14] MEDS ORDERED: ONDANSETRON INJ 2 MG/ML 2 ML VIAL IV PRN (08:45)
[2017-05-14] MEDS ORDERED: ACETAMINOPHEN 325 MG TAB PO PRN ×2 (08:45→09:00)
[2017-05-14] MEDS ORDERED: GLUCOSE 10 TABS/TUBE PO PRN (08:45)
[2017-05-14] MEDS ORDERED: GLUCOSE 40% GEL 15 GM TUBE PO PRN (08:45)
[2017-05-14] MEDS ORDERED: PIPERACILL/TAZOBAC IV 2.25 GM in DEXTROSE 5% 100ML 100 ML IV SCH (08:45)
[2017-05-14] MEDS ORDERED: GLUCAGON FOR INJ 1 MG VIAL SQ PRN (08:45)
[2017-05-14] MEDS ORDERED: ALBUT/IPRATROP 3MG/0.5MG NEB 3 ML VIAL INH PRN (09:00)
[2017-05-14] MEDS ORDERED: ALBUTEROL HFA 8 GM INHALER INH PRN (09:00)
[2017-05-14] MEDS ORDERED: DICYCLOMINE HCL 20 MG TAB PO PRN (09:00)
--- NOTE | 2017-05-14 09:47 | History and Physical ---
History & Physical Date & Time of Service: May 14, 2017 at 09:12 Chief Complaint: Respiratory Difficulty Primary Care Physician: Noam Armando M.D. History of Present Illness Source: patient, clinic records, hospital records This is a 72 year old female with a PMH of end stage renal disease on hemodialysis on Anhwnil-Ijrsnsfm-Nolcuaxb, COPD and chronic respiratory failure on 2.5-3L of O2 continuously, paroxysmal atrial fibrillation on long-term anticoagulation, insulin dependent diabetes mellitus type 2, anemia of chronic kidney disease, chronic grade 2 diastolic heart failure, pulmonary hypertension - presents with a 2-3 day history of shortness of breath, productive cough, fevers/chills, weakness, lack of appetite. States she went for her usual hemodialysis session on , May 12 and states she felt fine. At night on the , she felt sick, coughing, feverish. She states she felt worse on the and had to call EMS early on May 14 due to worsening shortness of breath. Presented to the ED - CXR suggested R lower lobe opacity. Dhe was given Zosyn in the ED, as well as Solu-medrol and a nebulizer treatment. During my exam, she was back to using 3L of O2, saturating well, in no significant respiratory distress. Past Medical/Surgical History Medical Problems: (1) A-fib Permanent Comment: paroxysmal Status: Chronic (2) Adrenal adenoma Status: Chronic (3) Anemia of chronic disease Status: Chronic (4) AV fistula Status: Chronic (5) Chronic respiratory failure Status: Chronic (6) Chronic respiratory failure with hypoxia Status: Chronic (7) COPD, moderate Status: Chronic (8) DM type 2 (diabetes mellitus, type 2) Status: Chronic (9) Dyslipidemia Status: Chronic (10) ESRD (end stage renal disease) on dialysis Status: Chronic (11) H/O cardiovascular stress test Permanent Comment: 05/2013 - negative for ischemia Status: Chronic (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 (13) History of Helicobacter pylori infection Status: Chronic (14) Hypertension Nos Status: Chronic (15) Moderate mitral regurgitation Permanent Comment: moderate to severe on 12/2015 echo Status: Chronic (16) Obesity Status: Chronic (17) Osteoarthritis Status: Chronic (18) Pancreatic cyst Status: Chronic (19) Psoriasis Status: Chronic (20) Renal cyst Status: Chronic Surgical Problems: (1) H/O colonoscopy Permanent Comment: 2005, hyperplastic polyps repeat in 10 years Status: Chronic (2) H/O nasal polypectomy Status: Chronic (3) History of cataract surgery Status: Chronic (4) S/P appendectomy Permanent Comment: 1971 Status: Chronic (5) S/P cholecystectomy Permanent Comment: 1971 Status: Chronic (6) S/P left oophorectomy Permanent Comment: 1981 Status: Chronic (7) S/P ASH (total abdominal hysterectomy) Permanent Comment: For Fibroids Status: Chronic Family History Diabetes mellitus FATHER MOTHER BROTHER FH: cancer BROTHER FH: heart disease FATHER Hypertension BROTHER Kidney disease BROTHER Social History Smoking Status: Former Smoker Drug Use: none Marital Status: Housing status: lives alone Occupational Status: retired Immunizations History of Influenza Vaccine: Yes Influenza Vaccine Date: Dec 26, 2014 History of Tetanus Vaccine?: Yes Tetanus Immunization Date: August 04, 2010 History of Pneumococcal: Yes Pneumococcal Date: Feb 24, 2015 Multi-Drug Resistant Organisms History of MDRO: No Allergies Coded Allergies: No Known Allergies (Verified , 02/08/17) Home Medications Scheduled Calcium Acetate (Phoslo 667 Mg), 2 CAP PO TIDM Camphor & Menthol (Sarna), 1 APPLN TD PRN Clonidine Hcl (Catapres), 0.1 MG PO BID Cyanocobalamin (Cyanocobalamin), 1,000 MCG IM MONTHLY Diltiazem Hcl Coated Beads (Diltiazem Cd), 120 MG PO QAM Ergocalciferol (Vitamin D 97542 Unit), 50,000 UNIT PO MONTHLY Fluticasone Prop/Salmeterol (Advair Diskus 250/50 60 Dose), 2 PUFF INH BID Furosemide (Furosemide), 40 MG PO DAILY Home O2 Therapy (Oxygen), 2.5 LITERS NA CONTINOUS Insulin Aspart (Novolog Flexpen), 2-3 UNITS SQ TIDM Insulin Glargine (Lantus), 26 UNITS SC QAM Losartan Potassium (Cozaar), 100 MG PO DAILY Metoprolol Tartrate (Lopressor) (Lopressor), 50 MG PO BID Prednisolone Acetate (Ophth) (Pred Forte 1% Oph), 1 DROPS OPL DAILY Umeclidinium [place]eter (Incruse Ellipta), 1 PUFF INH DAILY Valacyclovir Hcl (Valtrex), 1,000 MG PO DAILY Vitamin B Cmplx/Vitc/Folic Ac (Nephrocaps), 1 CAP PO DAILY Warfarin Sod (Coumadin), 5 MG PO 3XWK Warfarin Sod (Coumadin), 7.5 MG PO 4XWK Scheduled PRN Acetaminophen (Apap), 650 MG PO Q6 PRN for Pain Albuterol Hfa (Ventolin Hfa), 2 PUFFS INH Q4 PRN for SOB/Wheezing Dicyclomine Hcl (Dicyclomine Hcl), 20 MG PO Q6H PRN for CRAMPING Ipratropium-Albuterol (Duoneb), 1 TREATMENT INH QID PRN for SOB/Wheezing Lidocaine-Prilocaine (Hxketsezx-Ghznzyphsd-Uwoy 2.5-2.5 %), 1 APPLN TOP UD PRN for PRIOR TO DIALYSIS Loperamide Hcl (Loperamide Hcl), 2 MG PO QID PRN for Diarrhea Miscellaneous Medications Epoetin Hakan (Procrit) Review of Systems Constitutional: + fever, + chills, + weakness, + fatigue, + problem reported ( decreased PO intake), No sweats, No weight loss Eyes: + redness, No worsening of vision, No eye pain, No discharge ENT: No hearing loss Respiratory: + cough, + sputum, + shortness of breath, + dyspnea on exertion, + dyspnea at rest, No wheezing, No hemoptysis Cardiovascular: No chest pain, No orthopnea, No edema, No palpitations Abdomen: No pain, No nausea, No vomiting, No diarrhea, No constipation, No GI bleeding Musculoskeletal: No joint pain, No muscle pain Genitourinary - Female: No dysuria, No urinary frequency, No hematuria Neurologic: + balance problems (using walker at baseline), No weakness, No numbness/tingling, No vertigo Psychiatric: No depression symptoms, No anxiety, No insomnia Endocrine: + fatigue, No excessive thirst, No excessive urination Hematologic / Lymphatic: No abnormal bleeding/bruising Integumentary: No rash Allergic / Immunologic: No environmental allergies, No seasonal allergies Physical Exam Vital Signs Date Time Temp Pulse Resp B/P (MAP) Pulse Ox O2 Delivery O2 Flow Rate FiO2 05/14/17 08:36 64 26 175/61 93 Nasal Cannula 3.0 05/14/17 06:50 62 26 175/66 93 Nasal Cannula 3.0 05/14/17 06:22 63 05/14/17 05:49 95 Nasal Cannula 3.0 05/14/17 05:49 95 Nasal Cannula 3.0 05/14/17 05:44 95 Nasal Cannula 3.0 05/14/17 05:38 36.8 62 28 183/93 94 Nasal Cannula 3.0 General Appearance: no apparent distress, + pertinent finding (+weakness and tired) Head: normocephalic, atraumatic Eyes: + pertinent finding (L eye - sclera with blood noted on the medial aspect , no visual disturbance) ENT: normal ENT inspection, hearing grossly normal Neck: supple Respiratory/Chest: chest non-tender, lungs clear, normal breath sounds, no respiratory distress, no accessory muscle use Cardiovascular: regular rate, rhythm, no edema, no JVD, no murmur, normal peripheral pulses Abdomen/GI: normal bowel sounds, non tender, soft Back: normal inspection, no CVA tenderness, no muscle spasm, normal range of motion Extremities/Musculoskelatal: normal inspection, no calf tenderness, normal capillary refill, no pedal edema, normal range of motion, + pertinent finding ( L arm - AV fistula) Neurologic/Psych: contract driver II-XII nml as tested, no motor/sensory deficits, alert, normal mood/affect, oriented x 3 Skin: normal color, warm/dry, no rash Lymphatic: no adenopathy Diagnostics Laboratory Results Results Past 24 Hours Test 05/14/17 05:22 05/14/17 06:00 05/14/17 06:15 05/14/17 06:24 Range/Units White Blood Count 7.31 4.8-10.8 K/uL Red Blood Count 3.30 4.2-5.4 M/uL Hemoglobin 11.4 12.0-16.0 g/dL Hematocrit 37.2 37-47 % Mean Corpuscular Volume 112.7 80-100 fL Mean Corpuscular Hemoglobin 34.5 25-34 pg Mean Corpuscular Hemoglobin Concent 30.6 32-36 g/dl Platelet Count 164 130-400 K/uL Mean Platelet Volume 11.1 7.4-10.4 fL Neutrophils (%) (Auto) 83.1 % Lymphocytes (%) (Auto) 7.5 % Monocytes (%) (Auto) 7.1 % Eosinophils (%) (Auto) 1.5 % Basophils (%) (Auto) 0.4 % Neutrophils # (Auto) 6.07 1.4-6.5 K/uL Lymphocytes # (Auto) 0.55 1.2-3.4 K/uL Monocytes # (Auto) 0.52 0.11-0.59 K/uL Eosinophils # (Auto) 0.11 0-0.5 K/uL Basophils # (Auto) 0.03 0-0.2 K/uL RDW Standard Deviation 67.9 36.4-46.3 fL RDW Coefficient of Variation 16.5 11.5-14.5 % Immature Granulocyte % (Auto) 0.4 % Immature Granulocyte # (Auto) 0.03 0.00-0.02 K/uL Macrocytosis PRESENT Ovalocytes 1+ Prothrombin Time 18.1 9.0-12.0 SECONDS Prothromb Time International Ratio 1.7 0.9-1.1 Activated Partial Thromboplast Time 36.9 21.0-31.0 SECONDS Partial Thromboplastin Ratio 1.4 Influenza Type A Antigen Neg for Influ A NEG Influenza Type B Antigen Neg for Influ B NEG Sodium Level 138 136-145 mmol/L Potassium Level 4.7 3.5-5.1 mmol/L Chloride Level 99 98-107 mmol/L Carbon Dioxide Level 29 21-32 mmol/L Anion Gap 10.0 3-11 mmol/L Blood Urea Nitrogen 38 7-18 mg/dl Creatinine 9.57 0.60-1.20 mg/dl Est Creatinine Clear Calc Drug Dose 6.5 ml/min Estimated GFR () 4.3 Estimated GFR (Non- 3.7 BUN/Creatinine Ratio 4.0 10-20 Random Glucose 169 70-99 mg/dl Calcium Level 9.2 8.5-10.1 mg/dl Total Bilirubin 0.9 0.2-1 mg/dl Aspartate Amino Transf (AST/SGOT) 35 15-37 U/L Alanine Aminotransferase (ALT/SGPT) 54 12-78 U/L Alkaline Phosphatase 99 45-117 U/L Total Creatine Kinase 51 26-192 U/L Creatine Kinase MB 0.8 0.5-3.6 ng/ml Creatine Kinase MB Ratio 1.6 0-3.0 Troponin I < 0.015 0-0.045 ng/ml Pro-B-Type Natriuretic Peptide 14019 0-900 pg/ml Total Protein 6.6 6.4-8.2 gm/dl Albumin 3.3 3.4-5.0 gm/dl Globulin 3.3 2.5-4.0 gm/dl Albumin/Globulin Ratio 1.0 0.9-2 Bedside Lactic Acid Venous 1.22 0.90-1.70 mmol/L Microbiology Results 05/14/17 Blood Culture, Received Pending 05/14/17 Blood Culture, Received Pending Diagnostic Radiology CHEST ONE VIEW PORTABLE HISTORY: Sepsis COMPARISON: Chest 02/28/2017. FINDINGS: Progressive right basilar airspace opacity. Patchy densities at the left lung base have improved. The heart remains mildly enlarged. No evidence for pulmonary edema. No pneumothorax. Suspect a trace right pleural effusion. IMPRESSION: 1. Progressive airspace opacity within the right lower lobe. This likely represents a pneumonia. 2. Improved aeration within the left lung base. 3. Trace right pleural effusion, unchanged. EKG Sinus bradycardia with sinus arrhythmia Otherwise normal ECG Impression Assessment and Plan This is a 72 year old female with a PMH of end stage renal disease on hemodialysis on Bpykkep-Otkqdzbb-Dfpdkzsz, COPD and chronic respiratory failure on 2.5-3L of O2 continuously, paroxysmal atrial fibrillation on long-term anticoagulation, insulin dependent diabetes mellitus type 2, anemia of chronic kidney disease, chronic grade 2 diastolic heart failure, pulmonary hypertension - presents with a 2-3 day history of shortness of breath, productive cough, fevers/chills, weakness, lack of appetite. Acute on Chronic Hypoxic Respiratory Failure Health Care Associated Pneumonia patient was recently admitted to [facility] in February, less than 90 days prior at that time, she was diagnosed with a bibasilar pneumonia; finished course of antibiotics presented here; CXR performed - shows R lower lobe opacity patient states that she feels full fast and cannot eat much because a feeling of food stuck in the epigastric region plan for this is to consult speech therapy; possible video swallow will start Zosyn - renally dosed; check blood cultures, sputum culture check MRSA swab End Stage Renal Disease on HD gets dialysis on F-Mb-Tfjtryan due for dialysis today will consult nephrology for further input to use lidocaine-prilocaine one hour prior to dialysis at the site of the fistula continue Nephrocaps, PhosLo COPD patient uses 2.5-3L of O2 continuously; requiring more than baseline to keep O2 saturations up not wheezing during my exam, no exacerbation noted will continue duonebs as needed, continue her maintenance inhalers (Advair, Incruse Ellipta) Uncontrolled HTN will give her morning dose of clonidine continue Lasix, continue b-mariana monitor blood pressure and adjust doses accordingly Paroxysmal Atrial Fibrillation currently in sinus rhythm continue b-mariana continue Coumadin, goal INR of 2-3 Insulin Dependent DM2 will add sliding scale change Lantus home dose of 26 units once daily to 10 units BID check an updated Ha1c Anemia of Chronic Kidney Disease Hgb is stable Procrit as per nephrology Grade 2 Diastolic CHF currently euvolemic will continue home dose of Lasix dialysis for fluid removal DVT ppx Coumadin FULL CODE VTE Prophylaxis VTE Risk Assessment Done? Y/N: Yes Risk Level: Moderate Given or contraindicated: Warfarin (Coumadin)
[2017-05-14] MEDS ORDERED: PIPERACILL/TAZOBAC CONSULT ACTIVE PRN (10:30)
[2017-05-14] MEDS: CLONIDINE HCL 0.1 MG TAB PO SCH ×2 (11:07→20:22)
[2017-05-14] MEDS: FLUTICASONE/SALMETEROL 250/50 (ADVAIR) 14 PUFF/1 INHALER INH SCH ×2 (11:07→20:21)
[2017-05-14] MEDS: FUROSEMIDE 40 MG TAB PO SCH (11:07)
[2017-05-14] MEDS: LOSARTAN POTASSIUM 50 MG TAB PO SCH (11:08)
[2017-05-14] MEDS: METOPROLOL TARTRATE 50 MG TAB PO SCH ×2 (11:08→20:22)
[2017-05-14] MEDS: PrednisoLONE ACET 1% OP SUSP 5 ML BTL OPL SCH (11:08)
[2017-05-14] MEDS: DILTIAZEM HCL 120 MG CAPCR PO SCH (11:09)
[2017-05-14] MEDS: NEPHROCAPS PO SCH (11:09)
[2017-05-14] MEDS: CALCIUM ACETATE 667MG GELCAP PO SCH ×2 (11:09→18:37)
[2017-05-14] MEDS: INSULIN GLARGINE SOLOSTAR 100 UNITS/ML 3 ML PEN SC SCH ×2 (11:10→21:39)
[2017-05-14] MEDS: INSULIN ASPART 100 UNITS/ML 3 ML PEN SC SCH ×3 (12:16→21:39)
--- NOTE | 2017-05-14 13:55 | NEPHROLOGY CONSULTATION ---
DATE OF CONSULTATION: 05/14/2017 REASON FOR CONSULT: End-stage renal disease. The patient admitted with shortness of breath. HISTORY OF PRESENT ILLNESS: The patient is a 72-year-old female with end-stage renal disease on chronic hemodialysis Tuesday, and Tuesday; COPD and chronic respiratory failure, on chronic oxygen; atrial fibrillation, on long-term anticoagulation; type 2 diabetes of longstanding duration as well as congestive heart failure and pulmonary hypertension. She presented to the Emergency Department with a few days history of shortness of breath, productive cough, low-grade fever and chills as well as weakness and lack of appetite. She did have a regular dialysis on , but she has not had dialysis today, which is her normal day. She is also complaining of orthopnea and PND and her blood pressure currently is high. She claims that whenever they try to take fluid off in dialysis, she gets cramp and she gets very angry. Test done so far have revealed possible pneumonia in the right lower lobe. White count is normal. Serum chemistry is consistent with somebody with end-stage renal disease. BNP is quite elevated at 25,000. PAST MEDICAL AND SURGICAL HISTORY: Atrial fibrillation, on chronic anticoagulation anemia of chronic disease, AV fistula, chronic respiratory failure with hypoxia, moderately severe COPD, type 2 diabetes, dyslipidemia, end-stage renal disease on chronic hemodialysis, Pulmonary hypertension, mitral regurgitation, pulmonary hypertension, obesity, colonoscopy, nasal polypectomy, cataract surgery, appendicectomy, cholecystectomy, oophorectomy, total abdominal hysterectomy. FAMILY HISTORY: Reviewed and is positive for diabetes. No kidney disease in the family. SOCIAL HISTORY: Smoking history: Former smoker. She is a , lives alone. Retired. ALLERGIES: List was reviewed. HOME MEDICATIONS: List was reviewed in detail and is as per the reconciliation list. Current medication list was also reviewed in detail. REVIEW OF SYSTEMS: Already detailed in HPI unless stated otherwise. A 12-point system reviewed and negative. PHYSICAL EXAMINATION: GENERAL: Middle-aged white female who is awake, alert, oriented. She does appear to be in slight respiratory distress. HEENT: Mucous membranes are moist. HEART: Blood pressure is high at 184/90, 88% on 3 liters nasal cannula, pulse rate 65 per minute, temperature 36.9. CHEST: Bilateral decreased breath sounds and basal crackles. CARDIOVASCULAR: S1 and S2, regular. Systolic murmur, 3/6 heard. NECK: Cannot appreciate jugular venous distension because of short, obese neck. ABDOMEN: Soft, nontender. EXTREMITIES: Shows trace edema. Left arm AV fistula with good bruit and thrill. LABORATORY TESTS: From this morning shows sodium 138, potassium 4.7, BUN 38, creatinine 9.57. BNP was 25,000. Albumin 3.3. WBC count 7.31, platelet count 164, hemoglobin 11.4. IMAGING DATA: Chest x-ray shows possible right lower lobe pneumonia. ASSESSMENT AND PLAN: A 72-year-old female with end-stage renal disease on chronic hemodialysis as well as significant cardiac as well as pulmonary problems with chronic respiratory failure, admitted with worsening shortness of breath. 1. End-stage renal disease. Today is the dialysis day and at this time she appears quite stable from a hemodynamic standpoint. She can and should have dialysis today. Even though the predominant cause for respiratory distress is pneumonia, there is no question she has some evidence of congestive heart failure/fluid overload. Her blood pressure is high. She has some edema and her BNP is very elevated. However, she gets cramps easily and will try to take as much fluid as we can without getting significant cramp. Dialysis will be done today. 2. Respiratory distress, predominantly from pneumonia, but there is definitely some component of congestive heart failure/fluid overload, which would also get better with dialysis and some fluid removal. MALLYD
[2017-05-14] MEDS ORDERED: PROPARACAINE HCL 0.5% OP SOLN 15 ML BTL ONE (14:52)
[2017-05-14] MEDS: PIPERACILL/TAZOBAC IV 4.5 GM in DEXTROSE 5% 100ML IV SCH (18:35)
[2017-05-14] MEDS: WARFARIN SOD 7.5 MG TAB PO SCH (18:37)
[2017-05-15] VITALS (7 sets, daily range): BP systolic 143–174; BP diastolic 69–106; PULSE 48–99; TEMP 36.5–37.1; O2SAT 93–100
[2017-05-15] MEDS: PIPERACILL/TAZOBAC IV 4.5 GM in DEXTROSE 5% 100ML IV SCH (05:12)
[2017-05-15] MEDS ORDERED: COUGH DROP (SUGAR FREE) LOZ 24 LOZ/1 BOX LOZ ONE (05:13)
[2017-05-15 06:31] LABS: HEMATOCRIT 31.4 % (37-47); HEMOGLOBIN 10.3 g/dL (12.0-16.0); MEAN CELL VOLUME 107.9 fL (80-100); MEAN CORPUSCULAR HEMOGLOBIN 35.4 pg (25-34); MEAN CORPUSCULAR HGB CONC 32.8 g/dl (32-36); MEAN PLATELET VOLUME 10.6 fL (7.4-10.4); PLATELET COUNT 138 K/uL (130-400); RED CELL DISTRIBUTION WIDTH CV 16.2 % (11.5-14.5); RED CELL DISTRIBUTION WIDTH SD 63.6 fL (36.4-46.3)
[2017-05-15 06:37] LABS: INR 1.6 (0.9-1.1)
[2017-05-15 07:12] LABS: CALCIUM 8.5 mg/dl (8.5-10.1); CREATININE 7.32 mg/dl (0.60-1.20); POTASSIUM 4.1 mmol/L (3.5-5.1)
[2017-05-15] MEDS: PrednisoLONE ACET 1% OP SUSP 5 ML BTL OPL SCH (07:37)
[2017-05-15] MEDS: FLUTICASONE/SALMETEROL 250/50 (ADVAIR) 14 PUFF/1 INHALER INH SCH ×2 (07:38→20:37)
[2017-05-15] MEDS: FUROSEMIDE 40 MG TAB PO SCH (07:38)
[2017-05-15] MEDS: CALCIUM ACETATE 667MG GELCAP PO SCH ×3 (07:38→17:16)
[2017-05-15] MEDS: CLONIDINE HCL 0.1 MG TAB PO SCH ×2 (07:38→21:00)
[2017-05-15] MEDS: LOSARTAN POTASSIUM 50 MG TAB PO SCH (07:39)
[2017-05-15] MEDS: NEPHROCAPS PO SCH (07:39)
[2017-05-15] MEDS: INSULIN GLARGINE SOLOSTAR 100 UNITS/ML 3 ML PEN SC SCH ×2 (07:44→20:40)
[2017-05-15] MEDS: INSULIN ASPART 100 UNITS/ML 3 ML PEN SC SCH ×4 (08:30→20:41)
[2017-05-15] MEDS: DILTIAZEM HCL 120 MG CAPCR PO SCH (09:00)
[2017-05-15] MEDS: METOPROLOL TARTRATE 50 MG TAB PO SCH (09:00)
--- NOTE | 2017-05-15 16:05 | Progress Note ---
Subjective Date of Service: May 15, 2017. Subjective Pt evaluation today including: conversation w/ patient, physical exam, lab review, review of studies, review of inpatient medication list Saw/examined the patient in room 237 she feels much better today cough is worse at night No significant shortness of breath no chest pain no eye issues Problem List Medical Problems: (1) Acute respiratory failure with hypoxia Status: Acute (2) Anemia Status: Acute (3) Anemia, chronic renal failure Status: Acute (4) Chest pain Status: Acute (5) CHF (congestive heart failure) Status: Acute (6) CHF (congestive heart failure) Status: Acute (7) CHF exacerbation Status: Acute (8) Chronic obstructive pulmonary disease Status: Acute (9) COPD (chronic obstructive pulmonary disease) Status: Acute (10) COPD exacerbation Status: Acute (11) End stage renal disease Status: Acute (12) End stage renal disease on dialysis Status: Acute (13) GI bleed Status: Acute (14) GI bleed Status: Acute (15) Hemoptysis Status: Acute (16) Hypoxemia Status: Acute (17) Hypoxia Status: Acute (18) Left lower lobe pneumonia Status: Acute (19) PNA (pneumonia) Status: Acute (20) Pneumonia Status: Acute (21) Pulmonary congestion Status: Acute (22) Rapid atrial fibrillation Status: Acute (23) Respiratory failure Status: Acute (24) Right lower lobe pneumonia Status: Acute (25) Shortness of breath Status: Acute (26) Supratherapeutic INR Status: Acute Review of Systems Constitutional: No fever, No chills Respiratory: + cough, + sputum, + shortness of breath, No wheezing, No dyspnea on exertion, No dyspnea at rest, No hemoptysis Cardiac: No chest pain, No edema, No palpitations Medications Current Inpatient Medications Medications (Trade) Dose Ordered Sig/Joan Route Start Time Stop Time Status Last Admin Dose Admin Acetaminophen (Tylenol Tab) 650 mg Q4H PRN PO 05/14/17 08:45 06/13/17 08:44 Ondansetron HCl (Zofran Inj) 4 mg Q6H PRN IV 05/14/17 08:45 06/13/17 08:44 Insulin Glargine (Lantus Solostar Pen) 10 units Q12 SC 05/14/17 09:00 06/13/17 08:59 05/15/17 07:44 10 UNITS Insulin Aspart (novoLOG ASPART) SLIDING SCALE If C... ACHS SC 05/14/17 11:00 06/13/17 10:59 05/14/17 21:39 5 UNITS Glucose (Glucose 40% Gel) 15-30 GRAMS 15 GRAMS... UD PRN PO 05/14/17 08:45 06/13/17 08:44 Glucose (Glucose Chew Tab) 4-8 Tablets 4 Tabl... UD PRN PO 05/14/17 08:45 06/13/17 08:44 Dextrose (Dextrose 50% 50ML Syringe) 25-50ML OF 50% DW IV FOR... UD PRN IV 05/14/17 08:45 06/13/17 08:44 Glucagon (Glucagon Inj) 1 mg UD PRN SQ 05/14/17 08:45 06/13/17 08:44 Albuterol (Ventolin Hfa Inhaler) 2 puffs Q4 PRN INH 05/14/17 09:00 06/13/17 08:59 Calcium Acetate (Phoslo Cap) 1,334 mg TIDM PO 05/14/17 11:30 06/13/17 11:59 05/15/17 11:30 1,334 MG Clonidine HCl (Catapres Tab) 0.1 mg BID PO 05/14/17 09:00 06/13/17 08:59 05/15/17 07:38 0.1 MG Dicyclomine HCl (Bentyl Tab) 20 mg Q6H PRN PO 05/14/17 09:00 06/13/17 08:59 Diltiazem HCl (Cardizem Cd Cap) 120 mg QAM PO 05/14/17 09:00 06/13/17 08:59 05/14/17 11:09 120 MG Salmeterol Xinafoate/ Fluticasone (Advair Diskus 250/50 Inh) 2 puff BID INH 05/14/17 09:00 06/13/17 08:59 05/15/17 07:38 2 PUFF Furosemide (Lasix Tab) 40 mg DAILY PO 05/14/17 09:00 06/13/17 08:59 05/15/17 07:38 40 MG Albuterol/ Ipratropium (Duoneb) 3 ml QID PRN INH 05/14/17 09:00 06/13/17 08:59 Lidocaine/ Prilocaine (Emla 2.5% Crm) 1 ea UD PRN EXT 05/14/17 09:00 06/13/17 08:59 Losartan Potassium (coZAAR TAB) 100 mg DAILY PO 05/14/17 09:00 06/13/17 08:59 05/15/17 07:39 100 MG Metoprolol Tartrate (Lopressor Tab) 50 mg BID PO 05/14/17 09:00 06/13/17 08:59 05/14/17 20:22 50 MG Prednisolone Acetate (Pred Forte 1% Oph Susp) 1 drops DAILY OPL 05/14/17 09:00 06/13/17 08:59 05/15/17 07:37 1 DROPS Valacyclovir HCl (Valtrex Tab) 1,000 mg DAILY@1600 PO 05/14/17 16:00 06/13/17 15:59 05/14/17 18:36 1,000 MG Vitamin B Complex/ Vit C/Folic Acid (Nephrocaps) 1 cap DAILY PO 05/14/17 09:00 06/13/17 08:59 05/15/17 07:39 1 CAP Warfarin Sodium (Coumadin Tab) 5 mg MoWeFr@1600 PO 05/16/17 16:00 06/15/17 15:59 Warfarin Sodium (Coumadin Tab) 7.5 mg SuTuThSa@1600 PO 05/14/17 16:00 06/13/17 15:59 05/14/17 18:37 7.5 MG Miscellaneous Information (Order Awaiting Action) 1 ea QS N/A 05/14/17 16:00 06/13/17 15:59 Miscellaneous Information (Consult) 1 ea UD PRN N/A 05/14/17 10:30 06/13/17 10:29 Piperacillin Sod/ Tazobactam Sod 3.375 gm/Dextrose 115 ml @ 28.75 mls/ hr Q12H IV 05/15/17 16:00 05/21/17 23:59 Benzonatate (Tessalon Perles Cap) 100 mg TID PRN PO 05/15/17 15:30 06/14/17 15:29 Objective Vital Signs Date Time Temp Pulse Resp B/P (MAP) Pulse Ox O2 Delivery O2 Flow Rate FiO2 05/15/17 15:41 36.6 51 20 168/106 (126) 100 Nasal Cannula 2.0 05/15/17 11:29 Nasal Cannula 3.0 05/15/17 11:04 36.5 48 20 160/76 (104) 99 Nasal Cannula 2.0 05/15/17 07:45 Nasal Cannula 3.0 05/15/17 07:33 36.8 53 20 162/75 (104) 97 Nasal Cannula 2.0 05/15/17 04:00 Nasal Cannula 3.0 05/15/17 03:45 37.1 99 18 156/71 (99) 95 Nasal Cannula 2.0 05/15/17 01:26 36.8 58 19 156/69 (98) 93 Nasal Cannula 2.0 05/14/17 23:59 Nasal Cannula 3.0 05/14/17 20:11 37.1 64 20 141/66 (91) 92 Nasal Cannula 2.0 05/14/17 20:00 Nasal Cannula 3.0 05/14/17 17:38 37.1 58 157/80 (105) 05/14/17 17:00 58 150/79 05/14/17 16:45 58 160/79 05/14/17 16:31 58 162/73 05/14/17 16:15 57 152/76 Physical Exam General Appearance: no apparent distress Respiratory/Chest: no respiratory distress, no accessory muscle use, + decreased breath sounds Cardiovascular: no edema, no murmur, + bradycardia Extremities: normal inspection, no pedal edema Laboratory Results Last 24 Hours Test 05/14/17 16:04 05/14/17 17:54 05/14/17 21:11 05/15/17 05:46 Bedside Glucose 160 mg/dl 167 mg/dl 281 mg/dl White Blood Count 6.50 K/uL Red Blood Count 2.91 M/uL Hemoglobin 10.3 g/dL Hematocrit 31.4 % Mean Corpuscular Volume 107.9 fL Mean Corpuscular Hemoglobin 35.4 pg Mean Corpuscular Hemoglobin Concent 32.8 g/dl RDW Standard Deviation 63.6 fL RDW Coefficient of Variation 16.2 % Platelet Count 138 K/uL Mean Platelet Volume 10.6 fL Prothrombin Time 16.4 SECONDS Prothromb Time International Ratio 1.6 Sodium Level 133 mmol/L Potassium Level 4.1 mmol/L Chloride Level 95 mmol/L Carbon Dioxide Level 29 mmol/L Anion Gap 9.0 mmol/L Blood Urea Nitrogen 31 mg/dl Creatinine 7.32 mg/dl Est Creatinine Clear Calc Drug Dose 8.3 ml/min Estimated GFR () 6.0 Estimated GFR (Non- 5.1 BUN/Creatinine Ratio 4.3 Random Glucose 159 mg/dl Calcium Level 8.5 mg/dl Test 05/15/17 06:35 05/15/17 11:43 Bedside Glucose 152 mg/dl 149 mg/dl Assessment and Plan This is a 72 year old female with a PMH of end stage renal disease on hemodialysis on Jegtjni-[id number]-[id number], COPD and chronic respiratory failure on 2.5-3L of O2 continuously, paroxysmal atrial fibrillation on long-term anticoagulation, insulin dependent diabetes mellitus type 2, anemia of chronic kidney disease, chronic grade 2 diastolic heart failure, pulmonary hypertension - presents with a 2-3 day history of shortness of breath, productive cough, fevers/chills, weakness, lack of appetite. Acute on Chronic Hypoxic Respiratory Failure Health Care Associated Pneumonia 05/15 will continue current regimen for abx. cont. nebs Tessalon PRN for cough 05/14 patient was recently admitted to [facility] in February, less than 90 days prior at that time, she was diagnosed with a bibasilar pneumonia; finished course of antibiotics presented here; CXR performed - shows R lower lobe opacity patient states that she feels full fast and cannot eat much because a feeling of food stuck in the epigastric region plan for this is to consult speech therapy; possible video swallow will start Zosyn - renally dosed; check blood cultures, sputum culture check MRSA swab End Stage Renal Disease on HD gets dialysis on due for dialysis today will consult nephrology for further input to use lidocaine-prilocaine one hour prior to dialysis at the site of the fistula continue Nephrocaps, PhosLo COPD patient uses 2.5-3L of O2 continuously; requiring more than baseline to keep O2 saturations up not wheezing during my exam, no exacerbation noted will continue duonebs as needed, continue her maintenance inhalers (Advair, Incruse Ellipta) Uncontrolled HTN will give her morning dose of clonidine continue Lasix, continue b-mariana monitor blood pressure and adjust doses accordingly Paroxysmal Atrial Fibrillation currently in sinus rhythm continue b-mariana continue Coumadin, goal INR of 2-3 Insulin Dependent DM2 will add sliding scale change Lantus home dose of 26 units once daily to 10 units BID check an updated Ha1c Anemia of Chronic Kidney Disease Hgb is stable Procrit as per nephrology Grade 2 Diastolic CHF currently euvolemic will continue home dose of Lasix dialysis for fluid removal DVT ppx Coumadin FULL CODE
[2017-05-15] MEDS: BENZONATATE 100MG CAP PO PRN (17:18)
[2017-05-15] MEDS: WARFARIN SOD 7.5 MG TAB PO SCH (17:18)
[2017-05-15] MEDS: PIPERACILL/TAZOBAC IV 3.375 GM in DEXTROSE 5% 100ML IV SCH (17:20)
[2017-05-16] VITALS (7 sets, daily range): BP systolic 172–189; BP diastolic 69–73; PULSE 54–60; TEMP 36.5–36.7; O2SAT 94–99
[2017-05-16] MEDS: PIPERACILL/TAZOBAC IV 3.375 GM in DEXTROSE 5% 100ML IV SCH ×2 (03:47→17:08)
[2017-05-16 06:39] LABS: HEMATOCRIT 31.5 % (37-47); HEMOGLOBIN 10.3 g/dL (12.0-16.0); MEAN CELL VOLUME 108.2 fL (80-100); MEAN CORPUSCULAR HEMOGLOBIN 35.4 pg (25-34); MEAN CORPUSCULAR HGB CONC 32.7 g/dl (32-36); MEAN PLATELET VOLUME 10.1 fL (7.4-10.4); PLATELET COUNT 115 K/uL (130-400); RED CELL DISTRIBUTION WIDTH CV 16.2 % (11.5-14.5); WHITE BLOOD COUNT 5.97 K/uL (4.8-10.8)
[2017-05-16 07:32] LABS: CALCIUM 8.6 mg/dl (8.5-10.1); CREATININE 9.79 mg/dl (0.60-1.20); POTASSIUM 3.7 mmol/L (3.5-5.1)
[2017-05-16 08:01] LABS: HEMOGLOBIN A1C 5.7 % (4.5-5.6)
[2017-05-16] MEDS: CALCIUM ACETATE 667MG GELCAP PO SCH ×3 (08:04→17:07)
[2017-05-16] MEDS: FLUTICASONE/SALMETEROL 250/50 (ADVAIR) 14 PUFF/1 INHALER INH SCH ×2 (08:04→19:39)
[2017-05-16] MEDS: DILTIAZEM HCL 120 MG CAPCR PO SCH (08:05)
[2017-05-16] MEDS: CLONIDINE HCL 0.1 MG TAB PO SCH ×2 (08:05→19:39)
[2017-05-16] MEDS: FUROSEMIDE 40 MG TAB PO SCH (08:05)
[2017-05-16] MEDS: NEPHROCAPS PO SCH (08:05)
[2017-05-16] MEDS: LOSARTAN POTASSIUM 50 MG TAB PO SCH (08:05)
[2017-05-16] MEDS: PrednisoLONE ACET 1% OP SUSP 5 ML BTL OPL SCH (08:06)
[2017-05-16] MEDS: INSULIN ASPART 100 UNITS/ML 3 ML PEN SC SCH ×4 (08:10→20:45)
[2017-05-16] MEDS: INSULIN GLARGINE SOLOSTAR 100 UNITS/ML 3 ML PEN SC SCH ×2 (08:11→20:43)
--- NOTE | 2017-05-16 12:00 | Progress Note ---
Subjective Date of Service: May 16, 2017. Subjective Pt evaluation today including: conversation w/ patient, physical exam, lab review, review of studies, review of inpatient medication list Saw/examined the patient in room 237 She is doing better today; states her cough was worse at night No fevers/chills; +weakness Problem List Medical Problems: (1) Acute respiratory failure with hypoxia Status: Acute (2) Anemia Status: Acute (3) Anemia, chronic renal failure Status: Acute (4) Chest pain Status: Acute (5) CHF (congestive heart failure) Status: Acute (6) CHF (congestive heart failure) Status: Acute (7) CHF exacerbation Status: Acute (8) Chronic obstructive pulmonary disease Status: Acute (9) COPD (chronic obstructive pulmonary disease) Status: Acute (10) COPD exacerbation Status: Acute (11) End stage renal disease Status: Acute (12) End stage renal disease on dialysis Status: Acute (13) GI bleed Status: Acute (14) GI bleed Status: Acute (15) Hemoptysis Status: Acute (16) Hypoxemia Status: Acute (17) Hypoxia Status: Acute (18) Left lower lobe pneumonia Status: Acute (19) PNA (pneumonia) Status: Acute (20) Pneumonia Status: Acute (21) Pulmonary congestion Status: Acute (22) Rapid atrial fibrillation Status: Acute (23) Respiratory failure Status: Acute (24) Right lower lobe pneumonia Status: Acute (25) Shortness of breath Status: Acute (26) Supratherapeutic INR Status: Acute Review of Systems Constitutional: + weakness, No fever, No chills Respiratory: + cough, + sputum, + shortness of breath, + dyspnea on exertion, No wheezing, No dyspnea at rest, No hemoptysis Cardiac: No chest pain, No edema, No palpitations Abdomen: No nausea, No vomiting, No diarrhea Medications Current Inpatient Medications Medications (Trade) Dose Ordered Sig/Joan Route Start Time Stop Time Status Last Admin Dose Admin Acetaminophen (Tylenol Tab) 650 mg Q4H PRN PO 05/14/17 08:45 06/13/17 08:44 Ondansetron HCl (Zofran Inj) 4 mg Q6H PRN IV 05/14/17 08:45 06/13/17 08:44 Insulin Glargine (Lantus Solostar Pen) 10 units Q12 SC 2/17/18 09:00 06/13/17 08:59 05/16/17 08:11 10 UNITS Insulin Aspart (novoLOG ASPART) SLIDING SCALE If C... ACHS SC 05/14/17 11:00 06/13/17 10:59 05/16/17 08:10 3 UNITS Glucose (Glucose 40% Gel) 15-30 GRAMS 15 GRAMS... UD PRN PO 05/14/17 08:45 06/13/17 08:44 Glucose (Glucose Chew Tab) 4-8 Tablets 4 Tabl... UD PRN PO 05/14/17 08:45 06/13/17 08:44 Dextrose (Dextrose 50% 50ML Syringe) 25-50ML OF 50% DW IV FOR... UD PRN IV 05/14/17 08:45 06/13/17 08:44 Glucagon (Glucagon Inj) 1 mg UD PRN SQ 05/14/17 08:45 06/13/17 08:44 Albuterol (Ventolin Hfa Inhaler) 2 puffs Q4 PRN INH 05/14/17 09:00 06/13/17 08:59 Calcium Acetate (Phoslo Cap) 1,334 mg TIDM PO 05/14/17 11:30 06/13/17 11:59 05/16/17 08:04 1,334 MG Clonidine HCl (Catapres Tab) 0.1 mg BID PO 05/14/17 09:00 06/13/17 08:59 05/16/17 08:05 0.1 MG Dicyclomine HCl (Bentyl Tab) 20 mg Q6H PRN PO 05/14/17 09:00 06/13/17 08:59 Diltiazem HCl (Cardizem Cd Cap) 120 mg QAM PO 05/14/17 09:00 06/13/17 08:59 05/16/17 08:05 120 MG Salmeterol Xinafoate/ Fluticasone (Advair Diskus 250/50 Inh) 2 puff BID INH 05/14/17 09:00 06/13/17 08:59 05/16/17 08:04 2 PUFF Furosemide (Lasix Tab) 40 mg DAILY PO 05/14/17 09:00 06/13/17 08:59 05/16/17 08:05 40 MG Albuterol/ Ipratropium (Duoneb) 3 ml QID PRN INH 05/14/17 09:00 06/13/17 08:59 Lidocaine/ Prilocaine (Emla 2.5% Crm) 1 ea UD PRN EXT 05/14/17 09:00 06/13/17 08:59 Losartan Potassium (coZAAR TAB) 100 mg DAILY PO 05/14/17 09:00 06/13/17 08:59 05/16/17 08:05 100 MG Metoprolol Tartrate (Lopressor Tab) 50 mg BID PO 05/14/17 09:00 06/13/17 08:59 Future Hold 05/14/17 20:22 50 MG Prednisolone Acetate (Pred Forte 1% Oph Susp) 1 drops DAILY OPL 05/14/17 09:00 06/13/17 08:59 05/16/17 08:06 1 DROPS Valacyclovir HCl (Valtrex Tab) 1,000 mg DAILY@1600 PO 05/14/17 16:00 06/13/17 15:59 05/15/17 17:16 1,000 MG Vitamin B Complex/ Vit C/Folic Acid (Nephrocaps) 1 cap DAILY PO 05/14/17 09:00 06/13/17 08:59 05/16/17 08:05 1 CAP Warfarin Sodium (Coumadin Tab) 5 mg MoWeFr@1600 PO 05/16/17 16:00 06/15/17 15:59 Warfarin Sodium (Coumadin Tab) 7.5 mg SuTuThSa@1600 PO 05/14/17 16:00 06/13/17 15:59 05/15/17 17:18 7.5 MG Miscellaneous Information (Order Awaiting Action) 1 ea QS N/A 05/14/17 16:00 06/13/17 15:59 Miscellaneous Information (Consult) 1 ea UD PRN N/A 05/14/17 10:30 06/13/17 10:29 Piperacillin Sod/ Tazobactam Sod 3.375 gm/Dextrose 115 ml @ 28.75 mls/ hr Q12H IV 05/15/17 16:00 05/21/17 23:59 05/16/17 03:47 28.75 MLS/HR Benzonatate (Tessalon Perles Cap) 100 mg TID PRN PO 05/15/17 15:30 06/14/17 15:29 05/15/17 17:18 100 MG Guaifenesin (Robitussin Sugar Free Syrup) 100 mg Q6H PRN PO 05/16/17 09:30 06/15/17 09:29 Hydralazine HCl (Apresoline Tab) 25 mg NOW STAT PO 05/16/17 11:49 05/16/17 11:50 UNV Objective Vital Signs Date Time Temp Pulse Resp B/P (MAP) Pulse Ox O2 Delivery O2 Flow Rate FiO2 05/16/17 10:49 36.6 54 20 174/73 (106) 98 Nasal Cannula 2.0 05/16/17 08:00 36.5 60 20 177/69 (105) 99 Nasal Cannula 3.0 05/16/17 08:00 Nasal Cannula 3.0 05/16/17 04:00 Nasal Cannula 3.0 05/16/17 03:22 36.7 56 20 176/69 (104) 97 Nasal Cannula 2.0 Humidified Oxygen 05/16/17 00:04 36.6 59 16 172/69 (103) 94 2.0 05/15/17 23:59 Nasal Cannula 3.0 05/15/17 20:00 Nasal Cannula 3.0 05/15/17 19:43 36.5 59 20 174/78 (110) 96 Nasal Cannula 2.0 05/15/17 19:22 37.0 67 18 143/86 (105) 98 Room Air 05/15/17 16:15 Nasal Cannula 3.0 05/15/17 15:41 36.6 51 20 168/106 (126) 100 Nasal Cannula 2.0 Physical Exam General Appearance: no apparent distress Respiratory/Chest: no respiratory distress, no accessory muscle use Cardiovascular: regular rate, rhythm, no edema, no murmur Extremities: normal inspection, no pedal edema Neurologic/Psychiatric: no motor/sensory deficits, alert, normal mood/affect Laboratory Results Last 24 Hours Test 05/15/17 16:07 05/15/17 20:12 05/16/17 05:47 05/16/17 06:47 Bedside Glucose 154 mg/dl 149 mg/dl 90 mg/dl White Blood Count 5.97 K/uL Red Blood Count 2.91 M/uL Hemoglobin 10.3 g/dL Hematocrit 31.5 % Mean Corpuscular Volume 108.2 fL Mean Corpuscular Hemoglobin 35.4 pg Mean Corpuscular Hemoglobin Concent 32.7 g/dl RDW Standard Deviation 64.0 fL RDW Coefficient of Variation 16.2 % Platelet Count 115 K/uL Mean Platelet Volume 10.1 fL Sodium Level 136 mmol/L Potassium Level 3.7 mmol/L Chloride Level 97 mmol/L Carbon Dioxide Level 28 mmol/L Anion Gap 11.0 mmol/L Blood Urea Nitrogen 53 mg/dl Creatinine 9.79 mg/dl Est Creatinine Clear Calc Drug Dose 5.9 ml/min Estimated GFR () 4.2 Estimated GFR (Non- 3.6 BUN/Creatinine Ratio 5.4 Random Glucose 94 mg/dl Calcium Level 8.6 mg/dl Assessment and Plan This is a 72 year old female with a PMH of end stage renal disease on hemodialysis on Clhflwk-Fqencuqc-Vkzewsyl, COPD and chronic respiratory failure on 2.5-3L of O2 continuously, paroxysmal atrial fibrillation on long-term anticoagulation, insulin dependent diabetes mellitus type 2, anemia of chronic kidney disease, chronic grade 2 diastolic heart failure, pulmonary hypertension - presents with a 2-3 day history of shortness of breath, productive cough, fevers/chills, weakness, lack of appetite. Acute on Chronic Hypoxic Respiratory Failure Health Care Associated Pneumonia 05/16 continue Zosyn use for now added PRN Tessalon and PRN Robitussin for cough, which is worse nocturnally can likely switch to oral antibiotics in 1-2 days 05/15 will continue current regimen for abx. cont. nebs Tessalon PRN for cough 05/14 patient was recently admitted to [facility] in February, less than 90 days prior at that time, she was diagnosed with a bibasilar pneumonia; finished course of antibiotics presented here; CXR performed - shows R lower lobe opacity patient states that she feels full fast and cannot eat much because a feeling of food stuck in the epigastric region plan for this is to consult speech therapy; possible video swallow will start Zosyn - renally dosed; check blood cultures, sputum culture check MRSA swab End Stage Renal Disease on HD gets dialysis on E-Fn-Yktigztu due for dialysis today will consult nephrology for further input to use lidocaine-prilocaine one hour prior to dialysis at the site of the fistula continue Nephrocaps, PhosLo COPD patient uses 2.5-3L of O2 continuously; requiring more than baseline to keep O2 saturations up not wheezing during my exam, no exacerbation noted will continue duonebs as needed, continue her maintenance inhalers (Advair, Incruse Ellipta) Uncontrolled HTN 05/16 adding a dose of hydralazine today holding b-mariana due to bradycardic episodes 05/15 will give her morning dose of clonidine continue Lasix, continue b-mariana monitor blood pressure and adjust doses accordingly Paroxysmal Atrial Fibrillation currently in sinus rhythm holding b-mariana due to bradycardia continue Coumadin, goal INR of 2-3 Insulin Dependent DM2 will add sliding scale change Lantus home dose of 26 units once daily to 10 units BID check an updated Ha1c Anemia of Chronic Kidney Disease Hgb is stable Procrit as per nephrology Grade 2 Diastolic CHF currently euvolemic will continue home dose of Lasix dialysis for fluid removal DVT ppx Coumadin FULL CODE
[2017-05-16] MEDS: WARFARIN SOD 5 MG TAB PO SCH (17:07)
[2017-05-16] MEDS ORDERED: AMLODIPINE BESYLATE 5 MG TAB PO ONE (21:54)
--- NOTE | 2017-05-16 21:54 | Progress Note ---
Internal Med Progress Note Date of Service: May 16, 2017. Provider Documentation: Made aware by RN of SBP 170 to 180s. Beta mariana on hold due to bradycardic episodes. Will initiate Norvasc . Vital Signs: Date Time Temp Pulse Resp B/P (MAP) Pulse Ox O2 Delivery O2 Flow Rate FiO2 05/17/17 11:00 55 172/85 05/17/17 10:45 56 170/81 05/17/17 10:30 60 175/86 05/17/17 10:15 55 171/77 05/17/17 10:00 54 160/81 05/17/17 09:44 55 176/78 05/17/17 09:30 56 175/84 05/17/17 09:15 56 166/56 05/17/17 09:04 55 163/76 05/17/17 08:56 36.6 56 163/80 (107) 05/17/17 08:20 Nasal Cannula 3.0 05/17/17 08:00 36.7 57 18 161/74 (103) 93 Nasal Cannula 2.0 05/17/17 04:00 Nasal Cannula 2.0 05/17/17 03:35 36.5 59 18 179/69 (105) 97 2.0 05/17/17 00:35 36.9 57 18 169/72 (104) 94 2.0 05/17/17 00:00 Nasal Cannula 2.0 05/16/17 21:49 180/70 (106) 05/16/17 20:00 94 Nasal Cannula 2.0 05/16/17 19:26 36.7 57 18 189/71 (110) 94 Nasal Cannula 2.0 05/16/17 16:00 Nasal Cannula 3.0 05/16/17 12:00 Nasal Cannula 3.0 Lab Results: Results Past 24 Hours Test 05/16/17 16:19 05/16/17 20:09 05/17/17 06:11 05/17/17 06:27 Range/Units Bedside Glucose 120 140 96 70-90 mg/dl White Blood Count 5.44 4.8-10.8 K/uL Red Blood Count 3.21 4.2-5.4 M/uL Hemoglobin 11.2 12.0-16.0 g/dL Hematocrit 34.5 37-47 % Mean Corpuscular Volume 107.5 80-100 fL Mean Corpuscular Hemoglobin 34.9 25-34 pg Mean Corpuscular Hemoglobin Concent 32.5 32-36 g/dl RDW Standard Deviation 62.9 36.4-46.3 fL RDW Coefficient of Variation 16.0 11.5-14.5 % Platelet Count 119 130-400 K/uL Mean Platelet Volume 10.2 7.4-10.4 fL Prothrombin Time 18.1 9.0-12.0 SECONDS Prothromb Time International Ratio 1.7 0.9-1.1 Sodium Level 137 136-145 mmol/L Potassium Level 4.2 3.5-5.1 mmol/L Chloride Level 97 98-107 mmol/L Carbon Dioxide Level 27 21-32 mmol/L Anion Gap 13.0 3-11 mmol/L Blood Urea Nitrogen 61 7-18 mg/dl Creatinine 12.10 0.60-1.20 mg/dl Est Creatinine Clear Calc Drug Dose 5.0 ml/min Estimated GFR () 3.2 Estimated GFR (Non- 2.8 BUN/Creatinine Ratio 5.0 10-20 Random Glucose 92 70-99 mg/dl Calcium Level 9.1 8.5-10.1 mg/dl Magnesium Level 2.5 1.8-2.4 mg/dl
[2017-05-17] VITALS (24 sets, daily range): BP systolic 130–190; BP diastolic 56–86; PULSE 54–64; TEMP 36.5–37.3; O2SAT 93–98
[2017-05-17] MEDS: PIPERACILL/TAZOBAC IV 3.375 GM in DEXTROSE 5% 100ML IV SCH ×2 (03:45→16:10)
[2017-05-17 06:38] LABS: HEMATOCRIT 34.5 % (37-47); HEMOGLOBIN 11.2 g/dL (12.0-16.0); MEAN CELL VOLUME 107.5 fL (80-100); MEAN CORPUSCULAR HEMOGLOBIN 34.9 pg (25-34); MEAN CORPUSCULAR HGB CONC 32.5 g/dl (32-36); MEAN PLATELET VOLUME 10.2 fL (7.4-10.4); PLATELET COUNT 119 K/uL (130-400); RED CELL DISTRIBUTION WIDTH SD 62.9 fL (36.4-46.3); WHITE BLOOD COUNT 5.44 K/uL (4.8-10.8)
[2017-05-17 06:44] LABS: INR 1.7 (0.9-1.1)
[2017-05-17 07:13] LABS: CALCIUM 9.1 mg/dl (8.5-10.1); CREATININE 12.1 mg/dl (0.60-1.20); POTASSIUM 4.2 mmol/L (3.5-5.1)
[2017-05-17] MEDS: CALCIUM ACETATE 667MG GELCAP PO SCH ×3 (07:30→16:02)
[2017-05-17] MEDS ORDERED: HEPARIN SOD (PORCINE) 1000 UNIT/ML 10 ML VIAL IV ONE (08:00)
[2017-05-17] MEDS: FLUTICASONE/SALMETEROL 250/50 (ADVAIR) 14 PUFF/1 INHALER INH SCH ×2 (08:22→20:53)
[2017-05-17] MEDS: PrednisoLONE ACET 1% OP SUSP 5 ML BTL OPL SCH (08:22)
[2017-05-17] MEDS: INSULIN ASPART 100 UNITS/ML 3 ML PEN SC SCH ×4 (08:24→20:57)
[2017-05-17] MEDS: INSULIN GLARGINE SOLOSTAR 100 UNITS/ML 3 ML PEN SC SCH ×2 (08:26→20:56)
[2017-05-17] MEDS: LIDOCAINE/PRILOCAINE 2.5% EA CRM EXT PRN (08:35)
--- NOTE | 2017-05-17 09:42 | Dialysis Progress Note ---
Nephrology Dialysis Note Date of Service: May 17, 2017. Subjective HR dropped to 40s and bp meds held. feels breathing ok/ a bit better/ not short today. no n/v Objective Date Time Temp Pulse Resp B/P (MAP) Pulse Ox O2 Delivery O2 Flow Rate FiO2 05/17/17 09:15 56 166/56 05/17/17 09:04 55 163/76 05/17/17 08:56 36.6 56 163/80 (107) 05/17/17 08:20 Nasal Cannula 3.0 05/17/17 08:00 36.7 57 18 161/74 (103) 93 Nasal Cannula 2.0 05/17/17 04:00 Nasal Cannula 2.0 05/17/17 03:35 36.5 59 18 179/69 (105) 97 2.0 05/17/17 00:35 36.9 57 18 169/72 (104) 94 2.0 05/17/17 00:00 Nasal Cannula 2.0 05/16/17 21:49 180/70 (106) 05/16/17 20:00 94 Nasal Cannula 2.0 05/16/17 19:26 36.7 57 18 189/71 (110) 94 Nasal Cannula 2.0 05/16/17 16:00 Nasal Cannula 3.0 05/16/17 12:00 Nasal Cannula 3.0 05/16/17 10:49 36.6 54 20 174/73 (106) 98 Nasal Cannula 2.0 Physical Exam: General-on 02nc, A&O x3, hacking cough Eyes-injected sclera L eye, eomi, mild periorbital edema ENT-dry mm Neck-supple Lungs-diminished Heart-regularly spaced beats in 50s; no edema Abdomen-soft NT +BS Extremities-AVF L prox, trace edema Neuro-louie, fluent speech Current Inpatient Medications Medications (Trade) Dose Ordered Sig/Joan Route Start Time Stop Time Status Last Admin Dose Admin Acetaminophen (Tylenol Tab) 650 mg Q4H PRN PO 05/14/17 08:45 06/13/17 08:44 Ondansetron HCl (Zofran Inj) 4 mg Q6H PRN IV 05/14/17 08:45 06/13/17 08:44 Insulin Glargine (Lantus Solostar Pen) 10 units Q12 SC 05/14/17 09:00 06/13/17 08:59 05/17/17 08:26 10 UNITS Insulin Aspart (novoLOG ASPART) SLIDING SCALE If C... ACHS SC 05/14/17 11:00 06/13/17 10:59 05/17/17 08:24 1 UNITS Glucose (Glucose 40% Gel) 15-30 GRAMS 15 GRAMS... UD PRN PO 05/14/17 08:45 06/13/17 08:44 Glucose (Glucose Chew Tab) 4-8 Tablets 4 Tabl... UD PRN PO 05/14/17 08:45 06/13/17 08:44 Dextrose (Dextrose 50% 50ML Syringe) 25-50ML OF 50% DW IV FOR... UD PRN IV 05/14/17 08:45 06/13/17 08:44 Glucagon (Glucagon Inj) 1 mg UD PRN SQ 05/14/17 08:45 06/13/17 08:44 Albuterol (Ventolin Hfa Inhaler) 2 puffs Q4 PRN INH 05/14/17 09:00 06/13/17 08:59 Calcium Acetate (Phoslo Cap) 1,334 mg TIDM PO 05/14/17 11:30 06/13/17 11:59 05/16/17 17:07 1,334 MG Clonidine HCl (Catapres Tab) 0.1 mg BID PO 05/14/17 09:00 06/13/17 08:59 05/16/17 19:39 0.1 MG Dicyclomine HCl (Bentyl Tab) 20 mg Q6H PRN PO 05/14/17 09:00 06/13/17 08:59 Diltiazem HCl (Cardizem Cd Cap) 120 mg QAM PO 05/14/17 09:00 06/13/17 08:59 05/16/17 08:05 120 MG Salmeterol Xinafoate/ Fluticasone (Advair Diskus 250/50 Inh) 2 puff BID INH 05/14/17 09:00 06/13/17 08:59 05/17/17 08:22 2 PUFF Furosemide (Lasix Tab) 40 mg DAILY PO 05/14/17 09:00 06/13/17 08:59 05/16/17 08:05 40 MG Albuterol/ Ipratropium (Duoneb) 3 ml QID PRN INH 05/14/17 09:00 06/13/17 08:59 Lidocaine/ Prilocaine (Emla 2.5% Crm) 1 ea UD PRN EXT 05/14/17 09:00 06/13/17 08:59 05/17/17 08:35 1 EA Losartan Potassium (coZAAR TAB) 100 mg DAILY PO 05/14/17 09:00 06/13/17 08:59 05/16/17 08:05 100 MG Metoprolol Tartrate (Lopressor Tab) 50 mg BID PO 05/14/17 09:00 06/13/17 08:59 Future Hold 05/14/17 20:22 50 MG Prednisolone Acetate (Pred Forte 1% Oph Susp) 1 drops DAILY OPL 05/14/17 09:00 06/13/17 08:59 05/17/17 08:22 1 DROPS Valacyclovir HCl (Valtrex Tab) 1,000 mg DAILY@1600 PO 05/14/17 16:00 06/13/17 15:59 05/16/17 17:07 1,000 MG Vitamin B Complex/ Vit C/Folic Acid (Nephrocaps) 1 cap DAILY PO 05/14/17 09:00 06/13/17 08:59 05/16/17 08:05 1 CAP Warfarin Sodium (Coumadin Tab) 5 mg MoWeFr@1600 PO 05/16/17 16:00 06/15/17 15:59 05/16/17 17:07 5 MG Warfarin Sodium (Coumadin Tab) 7.5 mg SuTuThSa@1600 PO 05/14/17 16:00 06/13/17 15:59 05/15/17 17:18 7.5 MG Miscellaneous Information (Order Awaiting Action) 1 ea QS N/A 05/14/17 16:00 06/13/17 15:59 Miscellaneous Information (Consult) 1 ea UD PRN N/A 05/14/17 10:30 06/13/17 10:29 Piperacillin Sod/ Tazobactam Sod 3.375 gm/Dextrose 115 ml @ 28.75 mls/ hr Q12H IV 05/15/17 16:00 05/21/17 23:59 05/17/17 03:45 28.75 MLS/HR Benzonatate (Tessalon Perles Cap) 100 mg TID PRN PO 05/15/17 15:30 06/14/17 15:29 05/15/17 17:18 100 MG Guaifenesin (Robitussin Sugar Free Syrup) 100 mg Q6H PRN PO 05/16/17 09:30 06/15/17 09:29 Heparin Sodium (Porcine) (Heparin Iv Bolus) 400 unit Q1H IV 05/17/17 08:00 05/17/17 10:01 Amlodipine Besylate (Norvasc Tab) 2.5 mg HS PO 05/17/17 21:00 06/16/17 20:59 Last 24 Hours Test 05/16/17 10:58 05/16/17 16:19 05/16/17 20:09 05/17/17 06:11 Bedside Glucose 99 mg/dl 120 mg/dl 140 mg/dl White Blood Count 5.44 K/uL Red Blood Count 3.21 M/uL Hemoglobin 11.2 g/dL Hematocrit 34.5 % Mean Corpuscular Volume 107.5 fL Mean Corpuscular Hemoglobin 34.9 pg Mean Corpuscular Hemoglobin Concent 32.5 g/dl RDW Standard Deviation 62.9 fL RDW Coefficient of Variation 16.0 % Platelet Count 119 K/uL Mean Platelet Volume 10.2 fL Prothrombin Time 18.1 SECONDS Prothromb Time International Ratio 1.7 Sodium Level 137 mmol/L Potassium Level 4.2 mmol/L Chloride Level 97 mmol/L Carbon Dioxide Level 27 mmol/L Anion Gap 13.0 mmol/L Blood Urea Nitrogen 61 mg/dl Creatinine 12.10 mg/dl Est Creatinine Clear Calc Drug Dose 5.0 ml/min Estimated GFR () 3.2 Estimated GFR (Non- 2.8 BUN/Creatinine Ratio 5.0 Random Glucose 92 mg/dl Calcium Level 9.1 mg/dl Magnesium Level 2.5 mg/dl Test 05/17/17 06:27 Bedside Glucose 96 mg/dl Assessment & Plan 72-year-old female with end-stage renal disease on chronic hemodialysis as well as significant cardiac and pulmonary problems with chronic respiratory failure, admitted with health care associated PNA and acute on chronic respiratory failure. End-stage renal disease. -for hd today 4h tx goal 2.5L fluid removal to optimize volume/breathing status ; her txs are often limited by cramping -mini heparin on hd -next HD tentatively for 05/19 or as clinical status dictates -no epo indicated currently -cont binders -moved renavite to hs
[2017-05-17] MEDS: HEPARIN SOD (PORCINE) 1000 UNIT/ML 10 ML VIAL IV SCH ×3 (10:00→12:00)
[2017-05-17] MEDS: CLONIDINE HCL 0.1 MG TAB PO SCH ×2 (13:52→20:53)
[2017-05-17] MEDS: LOSARTAN POTASSIUM 50 MG TAB PO SCH (13:52)
[2017-05-17] MEDS: FUROSEMIDE 40 MG TAB PO SCH (13:52)
[2017-05-17] MEDS: DILTIAZEM HCL 120 MG CAPCR PO SCH (13:52)
[2017-05-17] MEDS: NEPHROCAPS PO SCH (13:52)
[2017-05-17] MEDS: BENZONATATE 100MG CAP PO PRN (16:02)
[2017-05-17] MEDS: WARFARIN SOD 7.5 MG TAB PO SCH (16:03)
--- NOTE | 2017-05-17 18:20 | Progress Note ---
Medicine Progress Note Date & Time of Visit: May 17, 2017 at 16:32. Subjective This is a 72 year old female with a PMH of end stage renal disease on hemodialysis on Qpuzdpa-Irqtotnw-Dunflmep, COPD and chronic respiratory failure on 2.5-3L of O2 continuously, paroxysmal atrial fibrillation on long-term anticoagulation, insulin dependent diabetes mellitus type 2, anemia of chronic kidney disease, chronic grade 2 diastolic heart failure, pulmonary hypertension - presents with a 2-3 day history of shortness of breath, productive cough, fevers/chills, weakness, lack of appetite. -tolerating PO -denies pain -some cough still present -denies fevers or chills, -doesn't feel back to her baseline -feels wiped out after HD. Objective Last 8 Hrs Date Time Temp Pulse Resp B/P (MAP) Pulse Ox O2 Delivery O2 Flow Rate FiO2 05/17/17 13:50 36.6 64 18 190/69 (109) 98 Nasal Cannula 3.0 05/17/17 13:45 Nasal Cannula 3.0 05/17/17 13:30 37.0 63 167/66 (99) 05/17/17 12:45 63 177/83 05/17/17 12:30 62 177/79 05/17/17 12:15 62 181/83 05/17/17 12:00 61 175/83 05/17/17 11:45 60 170/80 05/17/17 11:30 55 175/76 05/17/17 11:15 57 174/72 05/17/17 11:00 55 172/85 05/17/17 10:45 56 170/81 05/17/17 10:30 60 175/86 05/17/17 10:15 55 171/77 05/17/17 10:00 54 160/81 05/17/17 09:44 55 176/78 05/17/17 09:30 56 175/84 05/17/17 09:15 56 166/56 05/17/17 09:04 55 163/76 05/17/17 08:56 36.6 56 163/80 (107) Physical Exam: GEN: obese, in no acute distress, alert and appropriate HEENT: NC/AT, normal sclerae, MMM CARDIO: reg rate, S1/2 heard without m/g/r LUNGS: CTA bilaterally, no crackles, rales or wheezes, good diaphragmatic excursion ABD: soft, non-tender, non-distended, no rebound or guarding EXTREMITY: RP and DP palpable 2+ bilat, no LE swelling or edema, extremities are warm and well-perfused SKIN: warm and dry Laboratory Results: 05/17/17 06:11 05/17/17 06:11 Test 05/14/17 05:22 05/14/17 06:00 05/14/17 06:15 05/14/17 06:24 Immature Granulocyte % (Auto) 0.4 % White Blood Count 7.31 K/uL (4.8-10.8) Red Blood Count 3.30 M/uL (4.2-5.4) Hemoglobin 11.4 g/dL (12.0-16.0) Hematocrit 37.2 % (37-47) Mean Corpuscular Volume 112.7 fL (80-100) Mean Corpuscular Hemoglobin 34.5 pg (25-34) Mean Corpuscular Hemoglobin Concent 30.6 g/dl (32-36) Platelet Count 164 K/uL (130-400) Mean Platelet Volume 11.1 fL (7.4-10.4) Neutrophils (%) (Auto) 83.1 % Lymphocytes (%) (Auto) 7.5 % Monocytes (%) (Auto) 7.1 % Eosinophils (%) (Auto) 1.5 % Basophils (%) (Auto) 0.4 % Neutrophils # (Auto) 6.07 K/uL (1.4-6.5) Lymphocytes # (Auto) 0.55 K/uL (1.2-3.4) Monocytes # (Auto) 0.52 K/uL (0.11-0.59) Eosinophils # (Auto) 0.11 K/uL (0-0.5) Basophils # (Auto) 0.03 K/uL (0-0.2) Immature Granulocyte # (Auto) 0.03 K/uL (0.00-0.02) Macrocytosis PRESENT Ovalocytes 1+ Activated Partial Thromboplast Time 36.9 SECONDS (21.0-31.0) Partial Thromboplastin Ratio 1.4 Procalcitonin 0.22 ng/ml (0-0.5) Influenza Type A Antigen Neg for Influ A (NEG) Influenza Type B Antigen Neg for Influ B (NEG) Total Bilirubin 0.9 mg/dl (0.2-1) Aspartate Amino Transf (AST/SGOT) 35 U/L (15-37) Alanine Aminotransferase (ALT/SGPT) 54 U/L (12-78) Alkaline Phosphatase 99 U/L (45-117) Total Creatine Kinase 51 U/L (26-192) Creatine Kinase MB 0.8 ng/ml (0.5-3.6) Creatine Kinase MB Ratio 1.6 (0-3.0) Troponin I < 0.015 ng/ml (0-0.045) Pro-B-Type Natriuretic Peptide 92059 pg/ml (0-900) Total Protein 6.6 gm/dl (6.4-8.2) Albumin 3.3 gm/dl (3.4-5.0) Globulin 3.3 gm/dl (2.5-4.0) Albumin/Globulin Ratio 1.0 (0.9-2) Bedside Lactic Acid Venous 1.22 mmol/L (0.90-1.70) Test 05/15/17 05:46 05/17/17 06:11 05/17/17 16:26 Estimated Average Glucose 117 mg/dl Hemoglobin A1c 5.7 % (4.5-5.6) Red Blood Count 3.21 M/uL (4.2-5.4) Mean Corpuscular Volume 107.5 fL (80-100) Mean Corpuscular Hemoglobin 34.9 pg (25-34) Mean Corpuscular Hemoglobin Concent 32.5 g/dl (32-36) RDW Standard Deviation 62.9 fL (36.4-46.3) RDW Coefficient of Variation 16.0 % (11.5-14.5) Mean Platelet Volume 10.2 fL (7.4-10.4) Prothrombin Time 18.1 SECONDS (9.0-12.0) Prothromb Time International Ratio 1.7 (0.9-1.1) Anion Gap 13.0 mmol/L (3-11) Est Creatinine Clear Calc Drug Dose 5.0 ml/min Estimated GFR () 3.2 Estimated GFR (Non- 2.8 BUN/Creatinine Ratio 5.0 (10-20) Calcium Level 9.1 mg/dl (8.5-10.1) Magnesium Level 2.5 mg/dl (1.8-2.4) Bedside Glucose 188 mg/dl (70-90) Date/Time Source Procedure Growth Status 05/14/17 06:44 Blood Blood Culture - Preliminary NO GROWTH TO DATE. Resulted 05/14/17 22:00 Nasal MRSA DNA Surveillance Screen - Final Specimen Negative for MRSA by DNA Probe Complete Last 24 Hours Test 05/16/17 20:09 05/17/17 06:11 05/17/17 06:27 Bedside Glucose 140 mg/dl 96 mg/dl White Blood Count 5.44 K/uL Red Blood Count 3.21 M/uL Hemoglobin 11.2 g/dL Hematocrit 34.5 % Mean Corpuscular Volume 107.5 fL Mean Corpuscular Hemoglobin 34.9 pg Mean Corpuscular Hemoglobin Concent 32.5 g/dl RDW Standard Deviation 62.9 fL RDW Coefficient of Variation 16.0 % Platelet Count 119 K/uL Mean Platelet Volume 10.2 fL Prothrombin Time 18.1 SECONDS Prothromb Time International Ratio 1.7 Sodium Level 137 mmol/L Potassium Level 4.2 mmol/L Chloride Level 97 mmol/L Carbon Dioxide Level 27 mmol/L Anion Gap 13.0 mmol/L Blood Urea Nitrogen 61 mg/dl Creatinine 12.10 mg/dl Est Creatinine Clear Calc Drug Dose 5.0 ml/min Estimated GFR () 3.2 Estimated GFR (Non- 2.8 BUN/Creatinine Ratio 5.0 Random Glucose 92 mg/dl Calcium Level 9.1 mg/dl Magnesium Level 2.5 mg/dl Assessment & Plan This is a 72 year old female with a PMH of end stage renal disease on hemodialysis on [id number]-Jelpnmyw-Cplevdgj, COPD and chronic respiratory failure on 2.5-3L of O2 continuously, paroxysmal atrial fibrillation on long-term anticoagulation, insulin dependent diabetes mellitus type 2, anemia of chronic kidney disease, chronic grade 2 diastolic heart failure, pulmonary hypertension - presents with a 2-3 day history of shortness of breath, productive cough, fevers/chills, weakness, lack of appetite. 1. Acute on chronic hypoxic respiratory failure 2/2 HCAP-pt on Zosyn and improving but not quite back to baseline. Cont tessalon pearls and Robitussin PRN for cough which is still somewhat present. Cont abx for another day. 2. ESRD on HD-HD today was "yuck" and wiped her out. Cont HD while inpatient and cont Nephrocaps, Phoslo 3. Chronic respiratory failure 2/2 COPD. uses 3L continuous oxygen at home at baseline. No wheezing present, patient appears stable. Cont maintenance inhalers. 4. HTN-was uncontrolled until she received her BP meds for today, which was after HD today in the afternoon. 5. PAF-maintained in SR overnight. Holding BB 2/2 bradycardia. Cont coumadin , INR 1.7 today. 6. DMII-ISS/glargine with carb coverage. Currently meeting inpatient goals. 7. Anemia of CKD-Procrit per Nephrology. H/H stable. No bleeding 8. Chronic diastolic heart failure-compensated, stable. cont home Lasix. cont fluid removal in HD. DVT ppx: Coumadin FULL CODE Dipso-cont telemetry, uncertain at this time. Daughter at bedside, all questions answered. DO Juan Rutledgemone Hospitalist Consultants: Yodit Current Inpatient Medications: Current Inpatient Medications Medications (Trade) Dose Ordered Sig/Joan Route Start Time Stop Time Status Last Admin Dose Admin Acetaminophen (Tylenol Tab) 650 mg Q4H PRN PO 05/14/17 08:45 06/13/17 08:44 Ondansetron HCl (Zofran Inj) 4 mg Q6H PRN IV 05/14/17 08:45 06/13/17 08:44 Insulin Glargine (Lantus Solostar Pen) 10 units Q12 SC 05/14/17 09:00 06/13/17 08:59 05/17/17 08:26 10 UNITS Insulin Aspart (novoLOG ASPART) SLIDING SCALE If C... ACHS SC 05/14/17 11:00 06/13/17 10:59 05/17/17 14:09 5 UNITS Glucose (Glucose 40% Gel) 15-30 GRAMS 15 GRAMS... UD PRN PO 05/14/17 08:45 06/13/17 08:44 Glucose (Glucose Chew Tab) 4-8 Tablets 4 Tabl... UD PRN PO 05/14/17 08:45 06/13/17 08:44 Dextrose (Dextrose 50% 50ML Syringe) 25-50ML OF 50% DW IV FOR... UD PRN IV 05/14/17 08:45 06/13/17 08:44 Glucagon (Glucagon Inj) 1 mg UD PRN SQ 05/14/17 08:45 06/13/17 08:44 Albuterol (Ventolin Hfa Inhaler) 2 puffs Q4 PRN INH 05/14/17 09:00 06/13/17 08:59 Calcium Acetate (Phoslo Cap) 1,334 mg TIDM PO 05/14/17 11:30 06/13/17 11:59 05/17/17 16:02 1,334 MG Clonidine HCl (Catapres Tab) 0.1 mg BID PO 05/14/17 09:00 06/13/17 08:59 05/17/17 13:52 0.1 MG Dicyclomine HCl (Bentyl Tab) 20 mg Q6H PRN PO 05/14/17 09:00 06/13/17 08:59 Diltiazem HCl (Cardizem Cd Cap) 120 mg QAM PO 05/14/17 09:00 06/13/17 08:59 05/17/17 13:52 120 MG Salmeterol Xinafoate/ Fluticasone (Advair Diskus 250/50 Inh) 2 puff BID INH 05/14/17 09:00 06/13/17 08:59 05/17/17 08:22 2 PUFF Furosemide (Lasix Tab) 40 mg DAILY PO 05/14/17 09:00 06/13/17 08:59 05/17/17 13:52 40 MG Albuterol/ Ipratropium (Duoneb) 3 ml QID PRN INH 05/14/17 09:00 06/13/17 08:59 Lidocaine/ Prilocaine (Emla 2.5% Crm) 1 ea UD PRN EXT 05/14/17 09:00 06/13/17 08:59 05/17/17 08:35 1 EA Losartan Potassium (coZAAR TAB) 100 mg DAILY PO 05/14/17 09:00 06/13/17 08:59 05/17/17 13:52 100 MG Metoprolol Tartrate (Lopressor Tab) 50 mg BID PO 05/14/17 09:00 06/13/17 08:59 Future Hold 2/17/18 20:22 50 MG Prednisolone Acetate (Pred Forte 1% Oph Susp) 1 drops DAILY OPL 05/14/17 09:00 06/13/17 08:59 05/17/17 08:22 1 DROPS Valacyclovir HCl (Valtrex Tab) 1,000 mg DAILY@1600 PO 05/14/17 16:00 06/13/17 15:59 05/17/17 16:02 1,000 MG Vitamin B Complex/ Vit C/Folic Acid (Nephrocaps) 1 cap DAILY PO 05/14/17 09:00 06/13/17 08:59 05/17/17 13:52 1 CAP Warfarin Sodium (Coumadin Tab) 5 mg MoWeFr@1600 PO 05/16/17 16:00 06/15/17 15:59 05/16/17 17:07 5 MG Warfarin Sodium (Coumadin Tab) 7.5 mg SuTuThSa@1600 PO 05/14/17 16:00 06/13/17 15:59 05/17/17 16:03 7.5 MG Miscellaneous Information (Order Awaiting Action) 1 ea QS N/A 05/14/17 16:00 06/13/17 15:59 Miscellaneous Information (Consult) 1 ea UD PRN N/A 05/14/17 10:30 06/13/17 10:29 Piperacillin Sod/ Tazobactam Sod 3.375 gm/Dextrose 115 ml @ 28.75 mls/ hr Q12H IV 05/15/17 16:00 05/21/17 23:59 05/17/17 16:10 28.75 MLS/HR Benzonatate (Tessalon Perles Cap) 100 mg TID PRN PO 05/15/17 15:30 06/14/17 15:29 05/17/17 16:02 100 MG Guaifenesin (Robitussin Sugar Free Syrup) 100 mg Q6H PRN PO 05/16/17 09:30 06/15/17 09:29 Amlodipine Besylate (Norvasc Tab) 2.5 mg HS PO 05/17/17 21:00 06/16/17 20:59
[2017-05-17] MEDS: GUAIFENESIN SUGAR FREE 100 MG/5 ML UDC PO PRN (20:53)
[2017-05-17] MEDS: AMLODIPINE BESYLATE 5 MG TAB PO SCH (20:53)
[2017-05-18] VITALS (7 sets, daily range): BP systolic 142–168; BP diastolic 61–77; PULSE 54–66; TEMP 36.9–37.4; O2SAT 96–98
[2017-05-18] MEDS: PIPERACILL/TAZOBAC IV 3.375 GM in DEXTROSE 5% 100ML IV SCH ×2 (04:31→17:45)
[2017-05-18 07:03] LABS: INR 1.7 (0.9-1.1)
[2017-05-18 07:31] LABS: CALCIUM 7.9 mg/dl (8.5-10.1); CREATININE 8.38 mg/dl (0.60-1.20); PHOSPHORUS 3.5 mg/dl (2.5-4.9); POTASSIUM 3.7 mmol/L (3.5-5.1)
[2017-05-18] MEDS: FLUTICASONE/SALMETEROL 250/50 (ADVAIR) 14 PUFF/1 INHALER INH SCH ×2 (08:16→21:20)
[2017-05-18] MEDS: PrednisoLONE ACET 1% OP SUSP 5 ML BTL OPL SCH (08:17)
[2017-05-18] MEDS: DILTIAZEM HCL 120 MG CAPCR PO SCH (08:18)
[2017-05-18] MEDS: LOSARTAN POTASSIUM 50 MG TAB PO SCH (08:19)
[2017-05-18] MEDS: CLONIDINE HCL 0.1 MG TAB PO SCH ×2 (08:19→21:21)
[2017-05-18] MEDS: NEPHROCAPS PO SCH (08:20)
[2017-05-18] MEDS: FUROSEMIDE 40 MG TAB PO SCH (08:20)
[2017-05-18] MEDS: CALCIUM ACETATE 667MG GELCAP PO SCH ×3 (08:24→17:47)
[2017-05-18] MEDS: INSULIN GLARGINE SOLOSTAR 100 UNITS/ML 3 ML PEN SC SCH ×2 (08:29→21:26)
[2017-05-18] MEDS: INSULIN ASPART 100 UNITS/ML 3 ML PEN SC SCH ×4 (08:29→21:00)
[2017-05-18] MEDS: GUAIFENESIN SUGAR FREE 100 MG/5 ML UDC PO PRN (14:52)
[2017-05-18] MEDS: WARFARIN SOD 5 MG TAB PO SCH (17:46)
--- NOTE | 2017-05-18 18:16 | Progress Note ---
Medicine Progress Note Date & Time of Visit: May 18, 2017 at 15:52. Subjective -tolerating PO -still has cough but breathing appears back to baseline -pt reports ambulating without issues. -some muscle strain in abdomen from coughing. -denies fevers or chills. Objective Last 8 Hrs Date Time Temp Pulse Resp B/P (MAP) Pulse Ox O2 Delivery O2 Flow Rate FiO2 05/18/17 12:00 Nasal Cannula 3.0 05/18/17 12:00 37.0 54 16 154/69 (97) 96 Room Air 05/18/17 08:00 Nasal Cannula 3.0 Physical Exam: GEN: obese, in no acute distress, alert and appropriate HEENT: NC/AT, normal sclerae, MMM CARDIO: reg rate, S1/2 heard without m/g/r LUNGS: CTA bilaterally, no crackles, rales or wheezes, good diaphragmatic excursion ABD: soft, TTP throughout lower abdomen-pt jumping prior to me even touching her , non-distended, no rebound or guarding, +BS EXTREMITY: RP and DP palpable 2+ bilat, no LE swelling or edema, extremities are warm and well-perfused SKIN: warm and dry Laboratory Results: 05/17/17 06:11 05/18/17 06:02 Test 05/14/17 05:22 05/14/17 06:00 05/14/17 06:15 05/14/17 06:24 Immature Granulocyte % (Auto) 0.4 % White Blood Count 7.31 K/uL (4.8-10.8) Red Blood Count 3.30 M/uL (4.2-5.4) Hemoglobin 11.4 g/dL (12.0-16.0) Hematocrit 37.2 % (37-47) Mean Corpuscular Volume 112.7 fL (80-100) Mean Corpuscular Hemoglobin 34.5 pg (25-34) Mean Corpuscular Hemoglobin Concent 30.6 g/dl (32-36) Platelet Count 164 K/uL (130-400) Mean Platelet Volume 11.1 fL (7.4-10.4) Neutrophils (%) (Auto) 83.1 % Lymphocytes (%) (Auto) 7.5 % Monocytes (%) (Auto) 7.1 % Eosinophils (%) (Auto) 1.5 % Basophils (%) (Auto) 0.4 % Neutrophils # (Auto) 6.07 K/uL (1.4-6.5) Lymphocytes # (Auto) 0.55 K/uL (1.2-3.4) Monocytes # (Auto) 0.52 K/uL (0.11-0.59) Eosinophils # (Auto) 0.11 K/uL (0-0.5) Basophils # (Auto) 0.03 K/uL (0-0.2) Immature Granulocyte # (Auto) 0.03 K/uL (0.00-0.02) Macrocytosis PRESENT Ovalocytes 1+ Activated Partial Thromboplast Time 36.9 SECONDS (21.0-31.0) Partial Thromboplastin Ratio 1.4 Procalcitonin 0.22 ng/ml (0-0.5) Influenza Type A Antigen Neg for Influ A (NEG) Influenza Type B Antigen Neg for Influ B (NEG) Total Bilirubin 0.9 mg/dl (0.2-1) Aspartate Amino Transf (AST/SGOT) 35 U/L (15-37) Alanine Aminotransferase (ALT/SGPT) 54 U/L (12-78) Alkaline Phosphatase 99 U/L (45-117) Total Creatine Kinase 51 U/L (26-192) Creatine Kinase MB 0.8 ng/ml (0.5-3.6) Creatine Kinase MB Ratio 1.6 (0-3.0) Troponin I < 0.015 ng/ml (0-0.045) Pro-B-Type Natriuretic Peptide 52897 pg/ml (0-900) Total Protein 6.6 gm/dl (6.4-8.2) Albumin 3.3 gm/dl (3.4-5.0) Globulin 3.3 gm/dl (2.5-4.0) Albumin/Globulin Ratio 1.0 (0.9-2) Bedside Lactic Acid Venous 1.22 mmol/L (0.90-1.70) Test 05/15/17 05:46 05/17/17 06:11 05/18/17 06:02 05/18/17 16:37 Estimated Average Glucose 117 mg/dl Hemoglobin A1c 5.7 % (4.5-5.6) Red Blood Count 3.21 M/uL (4.2-5.4) Mean Corpuscular Volume 107.5 fL (80-100) Mean Corpuscular Hemoglobin 34.9 pg (25-34) Mean Corpuscular Hemoglobin Concent 32.5 g/dl (32-36) RDW Standard Deviation 62.9 fL (36.4-46.3) RDW Coefficient of Variation 16.0 % (11.5-14.5) Mean Platelet Volume 10.2 fL (7.4-10.4) Prothrombin Time 18.1 SECONDS (9.0-12.0) Prothromb Time International Ratio 1.7 (0.9-1.1) Anion Gap 10.0 mmol/L (3-11) Est Creatinine Clear Calc Drug Dose 7.2 ml/min Estimated GFR () 5.1 Estimated GFR (Non- 4.4 BUN/Creatinine Ratio 4.2 (10-20) Calcium Level 7.9 mg/dl (8.5-10.1) Phosphorus Level 3.5 mg/dl (2.5-4.9) Magnesium Level 2.3 mg/dl (1.8-2.4) Bedside Glucose 95 mg/dl (70-90) Date/Time Source Procedure Growth Status 05/14/17 06:44 Blood Blood Culture - Preliminary NO GROWTH TO DATE. Resulted 05/14/17 22:00 Nasal MRSA DNA Surveillance Screen - Final Specimen Negative for MRSA by DNA Probe Complete Last 24 Hours Test 05/17/17 16:26 05/17/17 20:14 05/18/17 06:02 05/18/17 06:52 Bedside Glucose 188 mg/dl 139 mg/dl 94 mg/dl Prothrombin Time 18.1 SECONDS Prothromb Time International Ratio 1.7 Sodium Level 137 mmol/L Potassium Level 3.7 mmol/L Chloride Level 99 mmol/L Carbon Dioxide Level 28 mmol/L Anion Gap 10.0 mmol/L Blood Urea Nitrogen 35 mg/dl Creatinine 8.38 mg/dl Est Creatinine Clear Calc Drug Dose 7.2 ml/min Estimated GFR () 5.1 Estimated GFR (Non- 4.4 BUN/Creatinine Ratio 4.2 Random Glucose 92 mg/dl Calcium Level 7.9 mg/dl Phosphorus Level 3.5 mg/dl Magnesium Level 2.3 mg/dl Test 05/18/17 11:16 Bedside Glucose 174 mg/dl Assessment & Plan This is a 72 year old female with a PMH of end stage renal disease on hemodialysis on [facility]fg[facility]-H[facility], COPD and chronic respiratory failure on 2.5-3L of O2 continuously, paroxysmal atrial fibrillation on long-term anticoagulation, insulin dependent diabetes mellitus type 2, anemia of chronic kidney disease, chronic grade 2 diastolic heart failure, pulmonary hypertension - presents with a 2-3 day history of shortness of breath, productive cough, fevers/chills, weakness, lack of appetite. 1. Acute on chronic hypoxic respiratory failure 2/2 HCAP-pt on Zosyn and improving -switching to PO Levaquin for remainder of 7 day course. Cont tessalon pearls and Robitussin PRN for cough which is still somewhat present. Cont abx for another day. Check Flu PCR to ensure no flu despite Ag negative. 2. ESRD on HD-Cont HD while inpatient and cont Nephrocaps, Phoslo 3. Chronic respiratory failure 2/2 COPD. Uses 3L continuous oxygen at home at baseline. No wheezing present, patient appears improved. Cont maintenance inhalers and plan per #1. 4. HTN-controlled, cont current meds except holding metoprolol as HR <60 consistently. 5. PAF-Holding BB 2/2 bradycardia. Cont coumadin, INR 1.7 today. Increasing warfarin to 7,5mg daily. 6. DMII-ISS/glargine with carb coverage. Currently meeting inpatient goals. 7. Anemia of CKD-Procrit per Nephrology. H/H stable. No bleeding 8. Chronic diastolic heart failure-compensated, stable. cont home Lasix. cont fluid removal in HD. DVT ppx: Coumadin FULL CODE Dipso-cont telemetry, uncertain at this time. Daughter at bedside, all questions answered. Laverne Simpson DO [facility] Hospitalist Consultants: [facility] Current Inpatient Medications: Current Inpatient Medications Medications (Trade) Dose Ordered Sig/Joan Route Start Time Stop Time Status Last Admin Dose Admin Acetaminophen (Tylenol Tab) 650 mg Q4H PRN PO 05/14/17 08:45 06/13/17 08:44 Ondansetron HCl (Zofran Inj) 4 mg Q6H PRN IV 05/14/17 08:45 06/13/17 08:44 Insulin Glargine (Lantus Solostar Pen) 10 units Q12 SC 05/14/17 09:00 06/13/17 08:59 05/18/17 08:29 10 UNITS Insulin Aspart (novoLOG ASPART) SLIDING SCALE If C... ACHS SC 05/14/17 11:00 06/13/17 10:59 05/18/17 12:33 6 UNITS Glucose (Glucose 40% Gel) 15-30 GRAMS 15 GRAMS... UD PRN PO 05/14/17 08:45 06/13/17 08:44 Glucose (Glucose Chew Tab) 4-8 Tablets 4 Tabl... UD PRN PO 05/14/17 08:45 06/13/17 08:44 Dextrose (Dextrose 50% 50ML Syringe) 25-50ML OF 50% DW IV FOR... UD PRN IV 05/14/17 08:45 06/13/17 08:44 Glucagon (Glucagon Inj) 1 mg UD PRN SQ 05/14/17 08:45 06/13/17 08:44 Albuterol (Ventolin Hfa Inhaler) 2 puffs Q4 PRN INH 05/14/17 09:00 06/13/17 08:59 Calcium Acetate (Phoslo Cap) 1,334 mg TIDM PO 05/14/17 11:30 06/13/17 11:59 05/18/17 12:29 1,334 MG Clonidine HCl (Catapres Tab) 0.1 mg BID PO 05/14/17 09:00 06/13/17 08:59 05/18/17 08:19 0.1 MG Dicyclomine HCl (Bentyl Tab) 20 mg Q6H PRN PO 05/14/17 09:00 06/13/17 08:59 Diltiazem HCl (Cardizem Cd Cap) 120 mg QAM PO 05/14/17 09:00 06/13/17 08:59 05/18/17 08:18 120 MG Salmeterol Xinafoate/ Fluticasone (Advair Diskus 250/50 Inh) 2 puff BID INH 05/14/17 09:00 06/13/17 08:59 05/18/17 08:16 2 PUFF Furosemide (Lasix Tab) 40 mg DAILY PO 05/14/17 09:00 06/13/17 08:59 05/18/17 08:20 40 MG Albuterol/ Ipratropium (Duoneb) 3 ml QID PRN INH 05/14/17 09:00 06/13/17 08:59 Lidocaine/ Prilocaine (Emla 2.5% Crm) 1 ea UD PRN EXT 05/14/17 09:00 06/13/17 08:59 05/17/17 08:35 1 EA Losartan Potassium (coZAAR TAB) 100 mg DAILY PO 05/14/17 09:00 06/13/17 08:59 05/18/17 08:19 100 MG Metoprolol Tartrate (Lopressor Tab) 50 mg BID PO 05/14/17 09:00 06/13/17 08:59 Future Hold 05/14/17 20:22 50 MG Prednisolone Acetate (Pred Forte 1% Oph Susp) 1 drops DAILY OPL 05/14/17 09:00 06/13/17 08:59 05/18/17 08:17 1 DROPS Valacyclovir HCl (Valtrex Tab) 1,000 mg DAILY@1600 PO 05/14/17 16:00 06/13/17 15:59 05/17/17 16:02 1,000 MG Vitamin B Complex/ Vit C/Folic Acid (Nephrocaps) 1 cap DAILY PO 05/14/17 09:00 06/13/17 08:59 05/18/17 08:20 1 CAP Warfarin Sodium (Coumadin Tab) 5 mg MoWeFr@1600 PO 05/16/17 16:00 06/15/17 15:59 05/16/17 17:07 5 MG Warfarin Sodium (Coumadin Tab) 7.5 mg SuTuThSa@1600 PO 05/14/17 16:00 06/13/17 15:59 05/17/17 16:03 7.5 MG Miscellaneous Information (Order Awaiting Action) 1 ea QS N/A 05/14/17 16:00 06/13/17 15:59 Miscellaneous Information (Consult) 1 ea UD PRN N/A 05/14/17 10:30 06/13/17 10:29 Piperacillin Sod/ Tazobactam Sod 3.375 gm/Dextrose 115 ml @ 28.75 mls/ hr Q12H IV 05/15/17 16:00 05/21/17 23:59 05/18/17 04:31 28.75 MLS/HR Benzonatate (Tessalon Perles Cap) 100 mg TID PRN PO 05/15/17 15:30 06/14/17 15:29 05/17/17 16:02 100 MG Guaifenesin (Robitussin Sugar Free Syrup) 100 mg Q6H PRN PO 05/16/17 09:30 06/15/17 09:29 05/18/17 14:52 100 MG Amlodipine Besylate (Norvasc Tab) 2.5 mg HS PO 05/17/17 21:00 06/16/17 20:59 05/17/17 20:53 2.5 MG
[2017-05-18] MEDS ORDERED: WARFARIN SOD 2.5 MG TAB PO ONE (19:15)
[2017-05-18] MEDS ORDERED: LEVOFLOXACIN 750 MG TAB PO ONE (20:00)
[2017-05-18 21:03] LABS: INFLUENZA A PCR Neg for Influ A (NEG); INFLUENZA B PCR Neg for Influ B (NEG)
[2017-05-18] MEDS: AMLODIPINE BESYLATE 5 MG TAB PO SCH (21:21)
[2017-05-19] VITALS (22 sets, daily range): BP systolic 142–160; BP diastolic 57–82; PULSE 56–65; TEMP 36.7–36.9; O2SAT 93–99
[2017-05-19] MEDS: PrednisoLONE ACET 1% OP SUSP 5 ML BTL OPL SCH (07:32)
[2017-05-19] MEDS: FLUTICASONE/SALMETEROL 250/50 (ADVAIR) 14 PUFF/1 INHALER INH SCH ×2 (07:32→21:03)
[2017-05-19] MEDS: LIDOCAINE/PRILOCAINE 2.5% EA CRM EXT PRN (07:32)
[2017-05-19] MEDS: CALCIUM ACETATE 667MG GELCAP PO SCH ×3 (08:00→17:50)
[2017-05-19] MEDS ORDERED: HEPARIN SOD (PORCINE) 1000 UNIT/ML 10 ML VIAL IV SCH (08:00)
[2017-05-19] MEDS: INSULIN GLARGINE SOLOSTAR 100 UNITS/ML 3 ML PEN SC SCH ×2 (08:20→21:05)
[2017-05-19] MEDS: INSULIN ASPART 100 UNITS/ML 3 ML PEN SC SCH ×4 (08:20→21:00)
[2017-05-19] MEDS: NEPHROCAPS PO SCH ×2 (08:21→13:45)
[2017-05-19 09:11] LABS: CALCIUM 8.8 mg/dl (8.5-10.1); CREATININE 10.9 mg/dl (0.60-1.20); PHOSPHORUS 4.6 mg/dl (2.5-4.9)
[2017-05-19] MEDS: HEPARIN SOD (PORCINE) 1000 UNIT/ML 10 ML VIAL IV SCH ×3 (10:00→12:00)
[2017-05-19] MEDS: DILTIAZEM HCL 120 MG CAPCR PO SCH (13:44)
[2017-05-19] MEDS: BENZONATATE 100MG CAP PO PRN (13:44)
[2017-05-19] MEDS: FUROSEMIDE 40 MG TAB PO SCH (13:44)
[2017-05-19] MEDS: LOSARTAN POTASSIUM 50 MG TAB PO SCH (13:44)
[2017-05-19] MEDS: CLONIDINE HCL 0.1 MG TAB PO SCH ×2 (13:45→21:03)
--- NOTE | 2017-05-19 13:59 | Dialysis Progress Note ---
Nephrology Dialysis Note Date of Service: May 19, 2017. Subjective no further issues w/ bradycardia. seen on hd at 1030 approx feels breathing ok / a bit better/ not short today. no n/v Objective Date Time Temp Pulse Resp B/P (MAP) Pulse Ox O2 Delivery O2 Flow Rate FiO2 05/19/17 13:36 36.9 63 160/69 (99) 05/19/17 13:00 58 150/66 05/19/17 12:45 58 144/65 05/19/17 12:30 59 157/66 05/19/17 12:15 59 160/66 05/19/17 12:00 56 142/65 05/19/17 11:45 58 151/63 05/19/17 11:30 59 145/75 05/19/17 11:15 59 158/70 05/19/17 11:00 58 157/64 05/19/17 10:45 59 145/64 05/19/17 10:30 57 144/66 05/19/17 10:15 58 150/66 05/19/17 10:00 60 147/64 05/19/17 09:45 59 149/64 05/19/17 09:30 59 146/66 05/19/17 09:15 59 148/66 05/19/17 09:06 58 154/66 05/19/17 08:59 36.7 56 145/57 (86) 05/19/17 08:00 Nasal Cannula 3.0 05/19/17 07:24 36.9 61 16 143/68 (93) 93 Nasal Cannula 3.0 05/19/17 00:16 36.9 63 16 153/66 (95) 93 Nasal Cannula 3.0 05/18/17 23:30 Nasal Cannula 3.0 05/18/17 21:00 Nasal Cannula 3.0 05/18/17 20:22 36.9 66 20 168/75 (106) 96 Nasal Cannula 3.0 05/18/17 19:31 36.9 65 20 165/71 (102) 96 Nasal Cannula 3.0 05/18/17 16:00 Nasal Cannula 3.0 05/18/17 15:20 37.1 57 18 158/61 (93) 98 Nasal Cannula 3.0 Physical Exam: General-on 02nc, A&O x3, less hacking cough Eyes-eomi, mild periorbital edema ENT-dry mm Neck-supple Lungs-diminished Heart-regularly spaced beats in 50s; no edema Abdomen-soft NT +BS Extremities-AVF L prox, trace edema Neuro-louie, fluent speech Current Inpatient Medications Medications (Trade) Dose Ordered Sig/Joan Route Start Time Stop Time Status Last Admin Dose Admin Acetaminophen (Tylenol Tab) 650 mg Q4H PRN PO 05/14/17 08:45 06/13/17 08:44 Ondansetron HCl (Zofran Inj) 4 mg Q6H PRN IV 05/14/17 08:45 06/13/17 08:44 Insulin Glargine (Lantus Solostar Pen) 10 units Q12 SC 05/14/17 09:00 06/13/17 08:59 05/19/17 08:20 10 UNITS Insulin Aspart (novoLOG ASPART) SLIDING SCALE If C... ACHS SC 05/14/17 11:00 06/13/17 10:59 05/19/17 08:20 5 UNITS Glucose (Glucose 40% Gel) 15-30 GRAMS 15 GRAMS... UD PRN PO 05/14/17 08:45 06/13/17 08:44 Glucose (Glucose Chew Tab) 4-8 Tablets 4 Tabl... UD PRN PO 05/14/17 08:45 06/13/17 08:44 Dextrose (Dextrose 50% 50ML Syringe) 25-50ML OF 50% DW IV FOR... UD PRN IV 05/14/17 08:45 06/13/17 08:44 Glucagon (Glucagon Inj) 1 mg UD PRN SQ 05/14/17 08:45 06/13/17 08:44 Albuterol (Ventolin Hfa Inhaler) 2 puffs Q4 PRN INH 05/14/17 09:00 06/13/17 08:59 Calcium Acetate (Phoslo Cap) 1,334 mg TIDM PO 05/14/17 11:30 06/13/17 11:59 05/19/17 13:45 1,334 MG Clonidine HCl (Catapres Tab) 0.1 mg BID PO 05/14/17 09:00 06/13/17 08:59 05/19/17 13:45 0.1 MG Dicyclomine HCl (Bentyl Tab) 20 mg Q6H PRN PO 05/14/17 09:00 06/13/17 08:59 Diltiazem HCl (Cardizem Cd Cap) 120 mg QAM PO 05/14/17 09:00 06/13/17 08:59 05/19/17 13:44 120 MG Salmeterol Xinafoate/ Fluticasone (Advair Diskus 250/50 Inh) 2 puff BID INH 05/14/17 09:00 06/13/17 08:59 05/19/17 07:32 2 PUFF Furosemide (Lasix Tab) 40 mg DAILY PO 05/14/17 09:00 06/13/17 08:59 05/19/17 13:44 40 MG Albuterol/ Ipratropium (Duoneb) 3 ml QID PRN INH 05/14/17 09:00 06/13/17 08:59 Lidocaine/ Prilocaine (Emla 2.5% Crm) 1 ea UD PRN EXT 05/14/17 09:00 06/13/17 08:59 05/19/17 07:32 1 EA Losartan Potassium (coZAAR TAB) 100 mg DAILY PO 05/14/17 09:00 06/13/17 08:59 05/19/17 13:44 100 MG Prednisolone Acetate (Pred Forte 1% Oph Susp) 1 drops DAILY OPL 05/14/17 09:00 06/13/17 08:59 05/19/17 07:32 1 DROPS Valacyclovir HCl (Valtrex Tab) 1,000 mg DAILY@1600 PO 05/14/17 16:00 06/13/17 15:59 05/18/17 17:48 1,000 MG Vitamin B Complex/ Vit C/Folic Acid (Nephrocaps) 1 cap DAILY PO 05/14/17 09:00 06/13/17 08:59 05/19/17 13:45 1 CAP Miscellaneous Information (Order Awaiting Action) 1 ea QS N/A 05/14/17 16:00 06/13/17 15:59 Benzonatate (Tessalon Perles Cap) 100 mg TID PRN PO 05/15/17 15:30 06/14/17 15:29 05/19/17 13:44 100 MG Guaifenesin (Robitussin Sugar Free Syrup) 100 mg Q6H PRN PO 05/16/17 09:30 06/15/17 09:29 05/18/17 14:52 100 MG Amlodipine Besylate (Norvasc Tab) 2.5 mg HS PO 05/17/17 21:00 06/16/17 20:59 05/18/17 21:21 2.5 MG Warfarin Sodium (Coumadin Tab) 7.5 mg DAILY@1600 PO 05/19/17 16:00 06/13/17 15:59 Levofloxacin (Levaquin Tab) 500 mg Q48H PO 05/20/17 11:00 05/20/17 11:01 Last 24 Hours Test 05/18/17 16:37 05/18/17 19:45 05/18/17 20:34 05/19/17 07:27 Bedside Glucose 95 mg/dl 128 mg/dl 103 mg/dl Influenza Type A (RT-PCR) Neg for Influ A Influenza Type B (RT-PCR) Neg for Influ B Test 05/19/17 08:00 Prothrombin Time 20.6 SECONDS Prothromb Time International Ratio 2.0 Sodium Level 134 mmol/L Potassium Level 4.0 mmol/L Chloride Level 98 mmol/L Carbon Dioxide Level 25 mmol/L Anion Gap 12.0 mmol/L Blood Urea Nitrogen 49 mg/dl Creatinine 10.90 mg/dl Est Creatinine Clear Calc Drug Dose 5.5 ml/min Estimated GFR () 3.7 Estimated GFR (Non- 3.2 BUN/Creatinine Ratio 4.5 Random Glucose 112 mg/dl Calcium Level 8.8 mg/dl Phosphorus Level 4.6 mg/dl Magnesium Level 2.3 mg/dl Assessment & Plan 72-year-old female with end-stage renal disease on chronic hemodialysis as well as significant cardiac and pulmonary problems with chronic respiratory failure, admitted with health care associated PNA and acute on chronic respiratory failure. End-stage renal disease. -for hd today 4h tx again w/ goal 2.5L fluid removal to optimize volume/ breathing status; her txs are often limited by cramping -mini heparin on hd -next HD tentatively for 05/21 or as clinical status dictates -no epo indicated currently -cont binders and hs renavite
[2017-05-19] MEDS ORDERED: WARFARIN SOD 7.5 MG TAB PO SCH (16:00)
[2017-05-19] MEDS: AMLODIPINE BESYLATE 5 MG TAB PO SCH (21:03)
--- NOTE | 2017-05-19 22:00 | Progress Note ---
Medicine Progress Note Date & Time of Visit: May 19, 2017 at 16:11. Subjective This is a 72 year old female with a PMH of end stage renal disease on hemodialysis on Rnfyfhv-Pwnvvdle-Hbuldlmb, COPD and chronic respiratory failure on 2.5-3L of O2 continuously, paroxysmal atrial fibrillation on long-term anticoagulation, insulin dependent diabetes mellitus type 2, anemia of chronic kidney disease, chronic grade 2 diastolic heart failure, pulmonary hypertension - presents with a 2-3 day history of shortness of breath, productive cough, fevers/chills, weakness, lack of appetite. Today she is tired from HD but is otherwise doing well with some residual cough but breathing at baseline. She reports some abdominal discomfort from a strain from coughing hard yesterday, and this is improved today. She is tolerating PO and ambulating at baseline per her reports. Objective Last 8 Hrs Date Time Temp Pulse Resp B/P (MAP) Pulse Ox O2 Delivery O2 Flow Rate FiO2 05/19/17 14:55 36.8 65 16 142/82 (102) 99 Nasal Cannula 3.0 05/19/17 13:36 36.9 63 160/69 (99) 05/19/17 13:00 58 150/66 05/19/17 12:45 58 144/65 05/19/17 12:30 59 157/66 05/19/17 12:15 59 160/66 05/19/17 12:00 56 142/65 05/19/17 11:45 58 151/63 05/19/17 11:30 59 145/75 05/19/17 11:15 59 158/70 05/19/17 11:00 58 157/64 05/19/17 10:45 59 145/64 05/19/17 10:30 57 144/66 05/19/17 10:15 58 150/66 05/19/17 10:00 60 147/64 05/19/17 09:45 59 149/64 05/19/17 09:30 59 146/66 05/19/17 09:15 59 148/66 05/19/17 09:06 58 154/66 05/19/17 08:59 36.7 56 145/57 (86) Physical Exam: GEN: obese, in no acute distress, alert and appropriate HEENT: NC/AT, normal sclerae, MMM CARDIO: reg rate, S1/2 heard without m/g/r LUNGS: CTA bilaterally, no crackles, rales or wheezes, good diaphragmatic excursion ABD: soft, TTP throughout lower abdomen-improved from yesterday, non-distended, no rebound or guarding, +BS EXTREMITY: RP and DP palpable 2+ bilat, no LE swelling or edema, extremities are warm and well-perfused SKIN: warm and dry Laboratory Results: 05/17/17 06:11 05/19/17 08:00 Test 05/14/17 05:22 05/14/17 06:00 05/14/17 06:15 05/14/17 06:24 Immature Granulocyte % (Auto) 0.4 % White Blood Count 7.31 K/uL (4.8-10.8) Red Blood Count 3.30 M/uL (4.2-5.4) Hemoglobin 11.4 g/dL (12.0-16.0) Hematocrit 37.2 % (37-47) Mean Corpuscular Volume 112.7 fL (80-100) Mean Corpuscular Hemoglobin 34.5 pg (25-34) Mean Corpuscular Hemoglobin Concent 30.6 g/dl (32-36) Platelet Count 164 K/uL (130-400) Mean Platelet Volume 11.1 fL (7.4-10.4) Neutrophils (%) (Auto) 83.1 % Lymphocytes (%) (Auto) 7.5 % Monocytes (%) (Auto) 7.1 % Eosinophils (%) (Auto) 1.5 % Basophils (%) (Auto) 0.4 % Neutrophils # (Auto) 6.07 K/uL (1.4-6.5) Lymphocytes # (Auto) 0.55 K/uL (1.2-3.4) Monocytes # (Auto) 0.52 K/uL (0.11-0.59) Eosinophils # (Auto) 0.11 K/uL (0-0.5) Basophils # (Auto) 0.03 K/uL (0-0.2) Immature Granulocyte # (Auto) 0.03 K/uL (0.00-0.02) Macrocytosis PRESENT Ovalocytes 1+ Activated Partial Thromboplast Time 36.9 SECONDS (21.0-31.0) Partial Thromboplastin Ratio 1.4 Procalcitonin 0.22 ng/ml (0-0.5) Influenza Type A Antigen Neg for Influ A (NEG) Influenza Type B Antigen Neg for Influ B (NEG) Total Bilirubin 0.9 mg/dl (0.2-1) Aspartate Amino Transf (AST/SGOT) 35 U/L (15-37) Alanine Aminotransferase (ALT/SGPT) 54 U/L (12-78) Alkaline Phosphatase 99 U/L (45-117) Total Creatine Kinase 51 U/L (26-192) Creatine Kinase MB 0.8 ng/ml (0.5-3.6) Creatine Kinase MB Ratio 1.6 (0-3.0) Troponin I < 0.015 ng/ml (0-0.045) Pro-B-Type Natriuretic Peptide 56112 pg/ml (0-900) Total Protein 6.6 gm/dl (6.4-8.2) Albumin 3.3 gm/dl (3.4-5.0) Globulin 3.3 gm/dl (2.5-4.0) Albumin/Globulin Ratio 1.0 (0.9-2) Bedside Lactic Acid Venous 1.22 mmol/L (0.90-1.70) Test 05/15/17 05:46 05/17/17 06:11 05/18/17 19:45 05/19/17 08:00 Estimated Average Glucose 117 mg/dl Hemoglobin A1c 5.7 % (4.5-5.6) Red Blood Count 3.21 M/uL (4.2-5.4) Mean Corpuscular Volume 107.5 fL (80-100) Mean Corpuscular Hemoglobin 34.9 pg (25-34) Mean Corpuscular Hemoglobin Concent 32.5 g/dl (32-36) RDW Standard Deviation 62.9 fL (36.4-46.3) RDW Coefficient of Variation 16.0 % (11.5-14.5) Mean Platelet Volume 10.2 fL (7.4-10.4) Influenza Type A (RT-PCR) Neg for Influ A (NEG) Influenza Type B (RT-PCR) Neg for Influ B (NEG) Prothrombin Time 20.6 SECONDS (9.0-12.0) Prothromb Time International Ratio 2.0 (0.9-1.1) Anion Gap 12.0 mmol/L (3-11) Est Creatinine Clear Calc Drug Dose 5.5 ml/min Estimated GFR () 3.7 Estimated GFR (Non- 3.2 BUN/Creatinine Ratio 4.5 (10-20) Calcium Level 8.8 mg/dl (8.5-10.1) Phosphorus Level 4.6 mg/dl (2.5-4.9) Magnesium Level 2.3 mg/dl (1.8-2.4) Test 05/19/17 20:22 Bedside Glucose 122 mg/dl (70-90) Date/Time Source Procedure Growth Status 05/14/17 06:44 Blood Blood Culture - Preliminary NO GROWTH TO DATE. Resulted 05/14/17 22:00 Nasal MRSA DNA Surveillance Screen - Final Specimen Negative for MRSA by DNA Probe Complete Last 24 Hours Test 05/18/17 16:37 05/18/17 19:45 05/18/17 20:34 05/19/17 07:27 Bedside Glucose 95 mg/dl 128 mg/dl 103 mg/dl Influenza Type A (RT-PCR) Neg for Influ A Influenza Type B (RT-PCR) Neg for Influ B Test 05/19/17 08:00 05/19/17 13:51 Prothrombin Time 20.6 SECONDS Prothromb Time International Ratio 2.0 Sodium Level 134 mmol/L Potassium Level 4.0 mmol/L Chloride Level 98 mmol/L Carbon Dioxide Level 25 mmol/L Anion Gap 12.0 mmol/L Blood Urea Nitrogen 49 mg/dl Creatinine 10.90 mg/dl Est Creatinine Clear Calc Drug Dose 5.5 ml/min Estimated GFR () 3.7 Estimated GFR (Non- 3.2 BUN/Creatinine Ratio 4.5 Random Glucose 112 mg/dl Calcium Level 8.8 mg/dl Phosphorus Level 4.6 mg/dl Magnesium Level 2.3 mg/dl Bedside Glucose 88 mg/dl Assessment & Plan This is a 72 year old female with a PMH of end stage renal disease on hemodialysis on Kxhmtvu-Gosvsyal-Nqjjwher, COPD and chronic respiratory failure on 2.5-3L of O2 continuously, paroxysmal atrial fibrillation on long-term anticoagulation, insulin dependent diabetes mellitus type 2, anemia of chronic kidney disease, chronic grade 2 diastolic heart failure, pulmonary hypertension - presents with a 2-3 day history of shortness of breath, productive cough, fevers/chills, weakness, lack of appetite. Today she is tired from HD but is otherwise doing well with some residual cough but breathing at baseline. She reports some abdominal discomfort from a strain from coughing hard yesterday, and this is improved today. She is tolerating PO and ambulating at baseline per her reports. 1. Acute on chronic hypoxic respiratory failure 2/2 HCAP-continues to improve on Levaquin PO. Cont tessalon pearls and Robitussin PRN for cough which is still somewhat present. Flu negative. 2. ESRD on HD-Cont HD while inpatient and cont Nephrocaps, Phoslo 3. Chronic respiratory failure 2/2 COPD. Uses 3L continuous oxygen at home at baseline. No wheezing present, patient appears improved. Cont maintenance inhalers and plan per #1. 4. HTN-controlled, cont current meds except holding metoprolol as HR <60 consistently. 5. PAF-Holding BB 2/ bradycardia. Increased warfarin to 7.5mg daily on 05/18. 6. DMII-ISS/glargine with carb coverage. Currently meeting inpatient goals. 7. Anemia of CKD-Procrit per Nephrology. H/H stable. No bleeding 8. Chronic diastolic heart failure-compensated, stable. cont home Lasix. cont fluid removal in HD. DVT ppx: Coumadin FULL CODE Dipso-cont telemetry, uncertain at this time. Daughter at bedside, all questions answered. Laverne Simpson DO [facility] Hospitalist Consultants: [facility] Current Inpatient Medications: Current Inpatient Medications Medications (Trade) Dose Ordered Sig/Jaon Route Start Time Stop Time Status Last Admin Dose Admin Acetaminophen (Tylenol Tab) 650 mg Q4H PRN PO 05/14/17 08:45 06/13/17 08:44 Ondansetron HCl (Zofran Inj) 4 mg Q6H PRN IV 05/14/17 08:45 06/13/17 08:44 Insulin Glargine (Lantus Solostar Pen) 10 units Q12 SC 05/14/17 09:00 06/13/17 08:59 05/19/17 08:20 10 UNITS Insulin Aspart (novoLOG ASPART) SLIDING SCALE If C... ACHS SC 05/14/17 11:00 06/13/17 10:59 05/19/17 08:20 5 UNITS Glucose (Glucose 40% Gel) 15-30 GRAMS 15 GRAMS... UD PRN PO 05/14/17 08:45 06/13/17 08:44 Glucose (Glucose Chew Tab) 4-8 Tablets 4 Tabl... UD PRN PO 05/14/17 08:45 06/13/17 08:44 Dextrose (Dextrose 50% 50ML Syringe) 25-50ML OF 50% DW IV FOR... UD PRN IV 05/14/17 08:45 06/13/17 08:44 Glucagon (Glucagon Inj) 1 mg UD PRN SQ 05/14/17 08:45 06/13/17 08:44 Albuterol (Ventolin Hfa Inhaler) 2 puffs Q4 PRN INH 05/14/17 09:00 06/13/17 08:59 Calcium Acetate (Phoslo Cap) 1,334 mg TIDM PO 05/14/17 11:30 06/13/17 11:59 05/19/17 13:45 1,334 MG Clonidine HCl (Catapres Tab) 0.1 mg BID PO 05/14/17 09:00 06/13/17 08:59 05/19/17 13:45 0.1 MG Dicyclomine HCl (Bentyl Tab) 20 mg Q6H PRN PO 05/14/17 09:00 06/13/17 08:59 Diltiazem HCl (Cardizem Cd Cap) 120 mg QAM PO 05/14/17 09:00 06/13/17 08:59 05/19/17 13:44 120 MG Salmeterol Xinafoate/ Fluticasone (Advair Diskus 250/50 Inh) 2 puff BID INH 05/14/17 09:00 06/13/17 08:59 05/19/17 07:32 2 PUFF Furosemide (Lasix Tab) 40 mg DAILY PO 05/14/17 09:00 06/13/17 08:59 05/19/17 13:44 40 MG Albuterol/ Ipratropium (Duoneb) 3 ml QID PRN INH 05/14/17 09:00 06/13/17 08:59 Lidocaine/ Prilocaine (Emla 2.5% Crm) 1 ea UD PRN EXT 05/14/17 09:00 06/13/17 08:59 05/19/17 07:32 1 EA Losartan Potassium (coZAAR TAB) 100 mg DAILY PO 05/14/17 09:00 06/13/17 08:59 05/19/17 13:44 100 MG Prednisolone Acetate (Pred Forte 1% Oph Susp) 1 drops DAILY OPL 05/14/17 09:00 06/13/17 08:59 05/19/17 07:32 1 DROPS Valacyclovir HCl (Valtrex Tab) 1,000 mg DAILY@1600 PO 05/14/17 16:00 06/13/17 15:59 05/18/17 17:48 1,000 MG Vitamin B Complex/ Vit C/Folic Acid (Nephrocaps) 1 cap DAILY PO 05/14/17 09:00 06/13/17 08:59 05/19/17 13:45 1 CAP Miscellaneous Information (Order Awaiting Action) 1 ea QS N/A 05/14/17 16:00 06/13/17 15:59 Benzonatate (Tessalon Perles Cap) 100 mg TID PRN PO 05/15/17 15:30 06/14/17 15:29 05/19/17 13:44 100 MG Guaifenesin (Robitussin Sugar Free Syrup) 100 mg Q6H PRN PO 05/16/17 09:30 06/15/17 09:29 05/18/17 14:52 100 MG Amlodipine Besylate (Norvasc Tab) 2.5 mg HS PO 05/17/17 21:00 06/16/17 20:59 05/18/17 21:21 2.5 MG Warfarin Sodium (Coumadin Tab) 7.5 mg DAILY@1600 PO 05/19/17 16:00 06/13/17 15:59 Levofloxacin (Levaquin Tab) 500 mg Q48H PO 05/20/17 11:00 05/20/17 11:01
[2017-05-20] VITALS: O2SAT 92
[2017-05-20 00:02] VITALS: BP 127/65; PULSE 72; TEMP 37.6; O2SAT 81
[2017-05-20 07:25] VITALS: BP 122/68; PULSE 54; TEMP 36.9; O2SAT 97
[2017-05-20 07:51] LABS: INR 1.9 (0.9-1.1)
[2017-05-20 07:56] VITALS: PULSE 71
[2017-05-20] MEDS: FLUTICASONE/SALMETEROL 250/50 (ADVAIR) 14 PUFF/1 INHALER INH SCH (08:00)
[2017-05-20] MEDS: CALCIUM ACETATE 667MG GELCAP PO SCH ×2 (08:00→12:01)
[2017-05-20] MEDS: DILTIAZEM HCL 120 MG CAPCR PO SCH (08:01)
[2017-05-20] MEDS: PrednisoLONE ACET 1% OP SUSP 5 ML BTL OPL SCH (08:01)
[2017-05-20] MEDS: FUROSEMIDE 40 MG TAB PO SCH (08:01)
[2017-05-20] MEDS: LOSARTAN POTASSIUM 50 MG TAB PO SCH (08:01)
[2017-05-20] MEDS: INSULIN GLARGINE SOLOSTAR 100 UNITS/ML 3 ML PEN SC SCH (08:07)
[2017-05-20] MEDS: INSULIN ASPART 100 UNITS/ML 3 ML PEN SC SCH ×2 (08:07→12:03)
[2017-05-20] MEDS: CLONIDINE HCL 0.1 MG TAB PO SCH (08:10)
[2017-05-20] MEDS ORDERED: LOPERAMIDE HCL 2 MG CAP PO PRN (09:30)
[2017-05-20] MEDS ORDERED: LEVOFLOXACIN 500 MG TAB PO SCH (11:00)
[2017-05-20 15:45] VITALS: BP 146/62; PULSE 54; TEMP 36.7; O2SAT 99
--- NOTE | 2017-05-20 16:27 | Discharge Summary ---
Discharge Summary Date of Service May 20, 2017. Discharge Summary Admission Date: May 14, 2017 at 08:55 Discharge Date: May 20, 2017 Discharge Disposition: Home Principal Diagnosis: 1. Acute on chronic hypoxic respiratory failure secondary to healthcare associated pneumonia. 2. ESRD on hemodialysis chronic respiratory failure secondary to COPD on 3 L at baseline 4. Hypertension 5. Paroxysmal atrial fibrillation 6. Diabetes mellitus type 2 7. Anemia of CKD on Procrit 8. Chronic diastolic heart failure compensated 9. Long-term anticoagulation on Coumadin Procedures: inpatient dialysis Vaccinations: None. Consultations: Nephro-Yony Pending Studies/Follow-Up: see instructions below. Medication Reconciliation Continued Medications: Acetaminophen (Apap) 325 Mg Tab 650 MG PO Q6 PRN for Pain Albuterol Hfa (Ventolin Hfa) 200 Puffs/51469 Mcg Aers 2 PUFFS INH Q4 PRN for SOB/Wheezing Calcium Acetate (Phoslo 667 Mg) 667 Mg Cap 2 CAP PO TIDM, CAP Camphor & Menthol (Sarna) 1 Lot Lot 1 APPLN TD PRN APPLY TO SKIN NEEDED FOR ITCHING Clonidine Hcl (Catapres) 0.1 Mg Tab 0.1 MG PO BID, TAB Cyanocobalamin (Cyanocobalamin) 1,000 Mcg/Ml Inj 1000 MCG IM MONTHLY Dicyclomine Hcl (Dicyclomine Hcl) 20 Mg Tab 20 MG PO Q6H PRN for CRAMPING for 30 Days, #120 TAB 11 Refills Diltiazem Hcl Coated Beads (Diltiazem Cd) 120 Mg Cap 120 MG PO QAM, CAP Epoetin Hakan (Procrit) 10,000 Units Inj per dialysis clinic Ergocalciferol (Vitamin D 17167 Unit) 50,000 Unit Cap 36985 UNIT PO MONTHLY, CAP 9th Fluticasone Prop/Salmeterol (Advair Diskus 250/50 60 Dose) 1 Ea Aerp 2 PUFF INH BID Furosemide (Furosemide) 40 Mg Tab 40 MG PO DAILY Home O2 Therapy (Oxygen) Gas 2.5 LITERS NA CONTINOUS Insulin Aspart (Novolog Flexpen) 100 Units/Ml Inj 2-3 UNITS SQ TIDM TAKES PER SLIDING SCALE Insulin Glargine (Lantus) 100 Unit/Ml Inj 26 UNITS SC QAM, VIAL Ipratropium-Albuterol (Duoneb) 3 Ml Nebu 1 TREATMENT INH QID PRN for SOB/Wheezing, INHA Lidocaine-Prilocaine (Rrvqqlfpp-Rvfcmbomiz-Xhmx 2.5-2.5 %) 1 Cre Cre 1 APPLN TOP UD PRN for PRIOR TO DIALYSIS APPLY SMALL AMT TO ACCESS SITE 1-2 HOURS BEFORE DIALYSIS. COVER WITH SARAN WRAP Loperamide Hcl (Loperamide Hcl) 2 Mg Tab 2 MG PO QID PRN for Diarrhea Losartan Potassium (Cozaar) 100 Mg Tab 100 MG PO DAILY, TAB Prednisolone Acetate (Ophth) (Pred Forte 1% Oph) 1 % Neena 1 DROPS OPL DAILY, #5 ML Umeclidinium [place] (Incruse Ellipta) 62.5 Mcg/Inh Inh 1 PUFF INH DAILY Valacyclovir Hcl (Valtrex) 1 Gm Tab 1000 MG PO DAILY, TAB Vitamin B Cmplx/Vitc/Folic Ac (Nephrocaps) Cap 1 CAP PO DAILY, CAP Warfarin Sod (Coumadin) 5 Mg Tab 5 MG PO 3XWK TAKE 5 MG EVERY TUESDAY/TUESDAY/TUESDAY. Warfarin Sod (Coumadin) 7.5 Mg Tab 7.5 MG PO 4XWK 1 1/2 TABLET DOSE EVERY TUESDAY/TUESDAY/TUESDAY/TUESDAY. Discontinued Medications: Metoprolol Tartrate (Lopressor) (Lopressor) 50 Mg Tab 50 MG PO BID, TAB Admission Information HPI (per Admitting provider): This is a 72 year old female with a PMH of end stage renal disease on hemodialysis on Kudozgg-Binydlis-Oxattbnd, COPD and chronic respiratory failure on 2.5-3L of O2 continuously, paroxysmal atrial fibrillation on long-term anticoagulation, insulin dependent diabetes mellitus type 2, anemia of chronic kidney disease, chronic grade 2 diastolic heart failure, pulmonary hypertension - presents with a 2-3 day history of shortness of breath, productive cough, fevers/chills, weakness, lack of appetite. States she went for her usual hemodialysis session on May 12 and states she felt fine. At night on the , she felt sick, coughing, feverish. She states she felt worse on the and had to call EMS early on May 14 due to worsening shortness of breath. Presented to the ED - CXR suggested R lower lobe opacity. Dhe was given Zosyn in the ED, as well as Solu-medrol and a nebulizer treatment. During my exam, she was back to using 3L of O2, saturating well, in no significant respiratory distress. Physical Exam (per Admitting): General Appearance: no apparent distress, + pertinent finding (+weakness and tired) Head: normocephalic, atraumatic Eyes: + pertinent finding (L eye - sclera with blood noted on the medial aspect, no visual disturbance) ENT: normal ENT inspection, hearing grossly normal Neck: supple Respiratory/Chest: chest non-tender, lungs clear, normal breath sounds, no respiratory distress, no accessory muscle use Cardiovascular: regular rate, rhythm, no edema, no JVD, no murmur, normal peripheral pulses Abdomen/GI: normal bowel sounds, non tender, soft Back: normal inspection, no CVA tenderness, no muscle spasm, normal range of motion Extremities/Musculoskelatal: normal inspection, no calf tenderness, normal capillary refill, no pedal edema, normal range of motion, + pertinent finding ( L arm - AV fistula) 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, no motor/sensory deficits, alert , normal mood/affect, oriented x 3 Skin: normal color, warm/dry, no rash Lymphatic: no adenopathy Hospital Course This is a 72 year old female with a PMH of end stage renal disease on hemodialysis on Zgimxwz-Pgjpgnew-Edijentu, COPD and chronic respiratory failure on 2.5-3L of O2 continuously, paroxysmal atrial fibrillation on long-term anticoagulation, insulin dependent diabetes mellitus type 2, anemia of chronic kidney disease, chronic grade 2 diastolic heart failure, pulmonary hypertension - presents with a 2-3 day history of shortness of breath, productive cough, fevers/chills, weakness, lack of appetite. Nephrology was consulted for inpatient dialysis while the patient was admitted. She was started on Zosyn for HCAP, Renally dosed in the setting of hemodialysis. Flu was negative. She was noted to use 2.5-3 L oxygen continuously at home as her baseline. She continued to improve over the next 2-3 days and by time of discharge she was breathing at baseline and afebrile for more than 48 hours hemodynamically stable mentating and ambulating at base with physical exam unremarkable for wheezing or any other new issues she was discharged in stable condition. Total time spent on discharge = 60 minutes This includes examination of the patient, discharge planning, medication reconciliation, and communication with other providers. Discharge Instructions [facility] [address] [place] [address] Discharge Medical Patient Name: Flaquita Velasco Unit Number: [id number] Date of : 1945 Patient Status: Admitted Inpatient Attending Doctor: Laverne Simpson DO DI: Medical v4 Discharge Instructions Date of Service May 20, 2017. Admission Reason for Admission: Hcap (Healthcare-Associated Pneumonia) Discharge Discharge Diagnosis / Problem: HCAP Discharge Goals Goal(s): Prevent Disease Progression Activity Recommendations Activity Limitations: per Instructions/Follow-up section . Instructions / Follow-Up Instructions / Follow-Up Please continue all medications as instructed. You have a follow-up appointment scheduled with Dr. Gianni Morse on 05/25 @ 3:45 in [place] for follow-up from this hospitalization. You will need a repeat chest xray within 4-6 weeks to ensure complete resolution of your pneumonia. This can be ordered through your primary care physician's office on follow-up. Please follow-up with the Anticoagulation Clinic regarding your coumadin monitoring sometime next week for a post-hospital check. It was a pleasure taking care of you! Call if you have any questions or problems. You can reach a [facility] hospitalist on duty at [facility] 24 hours a day by calling [phone]. Take care of yourself. Laverne Simpson DO [facility] Hospitalist Current Hospital Diet Patient's current hospital diet: Renal Diet, Diabetes Type 2 Diet Discharge Diet Recommended Diet: Diabetes Type 2 Diet, Renal Diet Procedures Procedures Performed: HD while inpatient Pending Studies Studies pending at discharge: no Laboratory Results Hemoglobin A1c Test 05/15/17 05:46 Range/Units Estimated Average Glucose 117 mg/dl Hemoglobin A1c 5.7 H 4.5-5.6 % Medical Emergencies . Who to Call and When: Medical Emergencies: If at any time you feel your situation is an emergency, please call 911 immediately. . Non-Emergent Contact Non-Emergency issues call your: Primary Care Provider . . "Provider Documentation" section prepared by Laverne Simpson. . VTE Core Measure Inpt VTE Proph given/why not?: Warfarin (Coumadin) Additional Copies To Gianni Morse M.D. Lavery, Doriann M.D.
[2017-05-20 16:34] VITALS: BP 146/62; PULSE 54; TEMP 36.7; O2SAT 99
== END 2017-05-20 16:55 | disposition home or self-care (01) | DRG 193 ==
LOC: EDBD 05:39 → C.EDA 05:41 → C.MSICU 08:55 → ENRESERV 09:18 → C.2T 17:53 → ENRESERV 05-18 18:57 → C.MS2W 05-18 20:36
PROVIDERS: ADMIT Family Medicine; ATTEND Hospitalist
DX: J18.9 Pneumonia, unspecified organism (principal); N18.6 End stage renal disease; J96.21 Acute and chronic respiratory failure with hypoxia; J96.10 Chronic respiratory failure, unspecified whether with hypoxia or hypercapnia; I50.32 Chronic diastolic (congestive) heart failure; I48.91 Unspecified atrial fibrillation; I11.0 Hypertensive heart disease with heart failure; J44.9 Chronic obstructive pulmonary disease, unspecified; E11.9 Type 2 diabetes mellitus without complications; E78.5 Hyperlipidemia, unspecified; Z99.2 Dependence on renal dialysis; Z87.01 Personal history of pneumonia (recurrent); I34.0 Nonrheumatic mitral (valve) insufficiency; E66.9 Obesity, unspecified; M19.90 Unspecified osteoarthritis, unspecified site; D63.1 Anemia in chronic kidney disease; Z90.49 Acquired absence of other specified parts of digestive tract; Z83.3 Family history of diabetes mellitus; Z80.9 Family history of malignant neoplasm, unspecified; Z82.49 Family history of ischemic heart disease and other diseases of the circulatory system; Z84.1 Family history of disorders of kidney and ureter; Z87.891 Personal history of nicotine dependence; Z79.4 Long term (current) use of insulin; Z79.01 Long term (current) use of anticoagulants; Z99.81 Dependence on supplemental oxygen

== ENCOUNTER 2017-06-16 06:38 | Inpatient (IN) | payer OTHER ==
[2017-06-16] VITALS (19 sets, daily range): BP systolic 134–165; BP diastolic 57–81; PULSE 64–75; TEMP 36.6–37; O2SAT 92–100; Ht 167.6 cm; Wt 99.0 kg
[~2017-06-16] VITALS: Ht 167.6 cm; Wt 99.0 kg
[~2017-06-16 06:38] MED LIST changes: -ACET325T82 PO; -ADVIN25/60 INH; -B-CO1CAP17 PO; -CALC667C4 PO; -CLON0.1T12 PO; -CMD5 PO; -CMD75 PO; -CYNI1000 IM; +DICY20TA10 PO; -DILT120C99 PO; -EPGI10M; -ERGO500037 PO; -INSDGI SC; -IPRASOL4 INH; -LACT1TAB26 PO; -LIDO1CRE58 TOP; -LOSA1TAB38 PO; -LSX40 PO; -METO50TA16 PO; -NVLGIPEN SQ; -OXGN; -PRED1SUS3 OPL; -UMEC1INH INH; -VALA1TAB2 PO; -VNTHFA/IN INH
[2017-06-16] MEDS ORDERED: LOPE1TAB25 PO (06:40)
[2017-06-16] MEDS ORDERED: CAMPLOT10 TD (06:48)
[2017-06-16] MEDS ORDERED: NVLGIPEN SQ (07:02)
[2017-06-16] MEDS ORDERED: PANTOprazole INJ 80 MG in DEXTROSE 5% 100ML 100 ML IV STA (07:03)
--- NOTE | 2017-06-16 07:28 | EMERGENCY ROOM VISIT NOTE ---
History First contact with patient: 06:52 Chief Complaint: OTHER COMPLAINT Stated Complaint: BLOOD TRANSFUSION History of Present Illness The patient is a 72 year old female who presents to the Emergency Room via private vehicle accompanied by daughter with complaints of "blood transfusion". The patient states that she was to receive dialysis this morning however prior to driving to that facility she was called by an individual from the dialysis clinic. She states that her hemoglobin was 6. She was informed that she should go to the emergency department which was also recommended by Dr. Tijerina. The patient states that she is also on Coumadin. She denies coughing any blood or bright red blood per rectum. She does note that however she has had black tarry stools for the past few days. She denies any pain but does feel weak. No chest pain. She at baseline notes she requires 3 L of oxygen. Review of Systems A complete 10-point Review of Systems was discussed with the patient, with pertinent positives and negatives listed in the History of Present Illness. All remaining Review of Systems questions can be considered negative unless otherwise specified. 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 (17) History of Helicobacter pylori infection (18) Hypertension Nos (19) Moderate mitral regurgitation (20) Obesity (21) Osteoarthritis (22) Pancreatic cyst (23) Psoriasis (24) Renal cyst (25) Respiratory failure, acute (26) SOB (shortness of breath) Surgical Problems: (1) H/O colonoscopy (2) H/O nasal polypectomy (3) History of cataract surgery (4) S/P appendectomy (5) S/P cholecystectomy (6) S/P left oophorectomy (7) S/P ASH (total abdominal hysterectomy) Family History Diabetes mellitus FATHER MOTHER BROTHER FH: cancer BROTHER FH: heart disease FATHER Hypertension BROTHER Kidney disease BROTHER Social History Smoking Status: Former Smoker Drug Use: none Marital Status: Housing Status: lives with family Occupation Status: retired Current/Historical Medications Scheduled Calcium Acetate (Phoslo 667 Mg), 2 CAP PO TIDM Camphor & Menthol (Sarna), 1 APPLN TD PRN Clonidine Hcl (Catapres), 0.1 MG PO BID Cyanocobalamin (Cyanocobalamin), 1,000 MCG IM MONTHLY Diltiazem Hcl Coated Beads (Diltiazem Cd), 120 MG PO QAM Ergocalciferol (Vitamin D 15185 Unit), 50,000 UNIT PO MONTHLY Fluticasone Prop/Salmeterol (Advair Diskus 250/50 60 Dose), 2 PUFF INH BID Furosemide (Furosemide), 40 MG PO DAILY Home O2 Therapy (Oxygen), 2.5 LITERS NA CONTINOUS Insulin Aspart (Novolog Flexpen), 2-3 UNITS SQ TIDM Insulin Glargine (Lantus), 26 UNITS SC QAM Losartan Potassium (Cozaar), 100 MG PO DAILY Prednisolone Acetate (Ophth) (Pred Forte 1% Oph), 1 DROPS OPL DAILY Umeclidinium [place] (Incruse Ellipta), 1 PUFF INH DAILY Valacyclovir Hcl (Valtrex), 1,000 MG PO DAILY Vitamin B Cmplx/Vitc/Folic Ac (Nephrocaps), 1 CAP PO DAILY Warfarin Sod (Coumadin), 5 MG PO 3XWK Warfarin Sod (Coumadin), 7.5 MG PO 4XWK Scheduled PRN Acetaminophen (Apap), 650 MG PO Q6 PRN for Pain Albuterol Hfa (Ventolin Hfa), 2 PUFFS INH Q4 PRN for SOB/Wheezing Ipratropium-Albuterol (Duoneb), 1 TREATMENT INH QID PRN for SOB/Wheezing Lidocaine-Prilocaine (Clltfopiq-Safxlggmwz-Cbnf 2.5-2.5 %), 1 APPLN TOP UD PRN for PRIOR TO DIALYSIS Loperamide Hcl (Loperamide Hcl), 2 MG PO QID PRN for Diarrhea Miscellaneous Medications Epoetin Hakan (Procrit) Physical Exam Vital Signs Date Time Temp Pulse Resp B/P (MAP) Pulse Ox O2 Delivery O2 Flow Rate FiO2 3/22/18 07:10 100 Nasal Cannula 3.0 06/16/17 07:06 70 06/16/17 06:55 100 Nasal Cannula 3.0 06/16/17 06:41 36.6 72 18 151/63 94 Room Air Physical Exam VITAL SIGNS - Vital signs and nursing notes were reviewed. Stable. GENERAL -72-year-old female appearing her stated age who is in no acute distress. Communicates well with provider and answers questions appropriately. SKIN - Without rashes. She is pale. No meningeal or petechial rash. HEAD - NC/AT. EYES - PERRL with EOMI bilaterally. Sclera anicteric. EARS - No deformities of external structures noted on gross examination bilaterally. NOSE - Midline and without cyanosis. No epistaxis or purulent drainage noted. MOUTH/OROPHARYNX - Without perioral cyanosis. Buccal mucosa pink and moist and without leukoplakia. Tongue midline with equal elevation of palate bilaterally. No tonsillar hypertrophy, erythema, or exudates noted. Fair dentition noted. NECK - Neck with FROM. Supple to palpation. No nuchal rigidity. LUNGS - Chest wall symmetric without accessory muscle use, intercostals retractions, or central cyanosis. Normal vesicular breath sounds CTA B/L. No wheezes, rales, or rhonchi appreciated. CARDIAC - RRR with S1/S2. No murmur, rubs, or gallops appreciated. EXTREMITIES - No clubbing or peripheral cyanosis. +5/5 strength noted in UE/LE bilaterally. NEUROLOGIC - Cranial nerves II through XII grossly intact. Sensory intact to light touch throughout. PSYCH - A&O, and cooperates fully with examiner. Pt is very pleasant and interacts well with examiner. RECTAL: Unremarkable rectal exam. No bright red blood. Positive Hemoccult stool testing. Medical Decision & Procedures Laboratory Results 06/16/17 07:20 Red Blood Count 1.53, Mean Corpuscular Volume 119.6, Mean Corpuscular Hemoglobin 37.9, Mean Corpuscular Hemoglobin Concent 31.7, Mean Platelet Volume 9.2, Neutrophils (%) (Auto) 74.7, Lymphocytes (%) (Auto) 14.7, Monocytes (%) ( Auto) 7.8, Eosinophils (%) (Auto) 1.8, Basophils (%) (Auto) 0.5, Neutrophils # ( Auto) 4.48, Lymphocytes # (Auto) 0.88, Monocytes # (Auto) 0.47, Eosinophils # ( Auto) 0.11, Basophils # (Auto) 0.03 06/16/17 07:20 Test 06/16/17 07:20 06/16/17 07:24 White Blood Count 6.00 K/uL (4.8-10.8) Red Blood Count 1.53 M/uL (4.2-5.4) Hemoglobin 5.8 g/dL (12.0-16.0) Hematocrit 18.3 % (37-47) Mean Corpuscular Volume 119.6 fL (80-100) Mean Corpuscular Hemoglobin 37.9 pg (25-34) Mean Corpuscular Hemoglobin Concent 31.7 g/dl (32-36) Platelet Count 247 K/uL (130-400) Mean Platelet Volume 9.2 fL (7.4-10.4) Neutrophils (%) (Auto) 74.7 % Lymphocytes (%) (Auto) 14.7 % Monocytes (%) (Auto) 7.8 % Eosinophils (%) (Auto) 1.8 % Basophils (%) (Auto) 0.5 % Neutrophils # (Auto) 4.48 K/uL (1.4-6.5) Lymphocytes # (Auto) 0.88 K/uL (1.2-3.4) Monocytes # (Auto) 0.47 K/uL (0.11-0.59) Eosinophils # (Auto) 0.11 K/uL (0-0.5) Basophils # (Auto) 0.03 K/uL (0-0.2) RDW Standard Deviation 88.5 fL (36.4-46.3) RDW Coefficient of Variation 21.4 % (11.5-14.5) Immature Granulocyte % (Auto) 0.5 % Immature Granulocyte # (Auto) 0.03 K/uL (0.00-0.02) Nucleated RBC Absolute Count (auto) 0.02 K/uL (0-0) Nucleated Red Blood Cells % 0.3 % Polychromasia 1+ Anisocytosis PRESENT Macrocytosis PRESENT Prothrombin Time 19.7 SECONDS (9.0-12.0) Prothromb Time International Ratio 1.9 (0.9-1.1) Activated Partial Thromboplast Time 32.4 SECONDS (21.0-31.0) Partial Thromboplastin Ratio 1.2 Est Creatinine Clear Calc Drug Dose 6.8 ml/min Estimated GFR () 4.8 Estimated GFR (Non- 4.1 BUN/Creatinine Ratio 6.3 (10-20) Calcium Level 8.7 mg/dl (8.5-10.1) Magnesium Level 2.2 mg/dl (1.8-2.4) Total Bilirubin 0.4 mg/dl (0.2-1) Aspartate Amino Transf (AST/SGOT) 18 U/L (15-37) Alanine Aminotransferase (ALT/SGPT) 29 U/L (12-78) Alkaline Phosphatase 89 U/L (45-117) Troponin I < 0.015 ng/ml (0-0.045) Total Protein 6.5 gm/dl (6.4-8.2) Albumin 3.1 gm/dl (3.4-5.0) Globulin 3.4 gm/dl (2.5-4.0) Albumin/Globulin Ratio 0.9 (0.9-2) Bedside Hemoglobin 5.4 g/dl (12.0-16.0) Bedside Hematocrit 16 % (37-47) Bedside Sodium 139 mEq/L (135-144) Bedside Potassium 4.0 mEq/L (3.3-5.0) Bedside Chloride 97 mEq/L (101-112) Bedside Total CO2 29 mEq/l (24-31) Anion Gap 17.0 mmol/L (16-25) Bedside Blood Urea Nitrogen 61 mg/dl (7-18) Bedside Creatinine 9.2 mg/dl (0.6-1.3) Bedside Glucose (other) 186 mg/dl (70-99) Bedside Ionized Calcium (Tyler) 1.08 mmol/l (1.12-1.32) Medications Administered Medications (Trade) Dose Ordered Sig/Joan Route Start Time Stop Time Status Last Admin Dose Admin Pantoprazole Sodium 80 mg/ Dextrose 120 ml @ 400 mls/hr NOW STAT IV 06/16/17 07:03 06/16/17 07:20 DC 06/16/17 07:29 400 MLS/HR Medical Decision Patient was seen and evaluated as above in room B11. Review was performed of nursing notes and vital signs. After obtaining a thorough history and physical examination the above work up was performed. I-STAT reveals hemoglobin below 6. 2 units of packed red blood cells were ordered. She is stable. She is pale in appearance. No chest pain or strokelike symptoms. No leukocytosis. With the positive Hemoccult stool test I will add Protonix 80 mg IV. INR 1.9. Creatinine above 8. She is on dialysis. She was to have dialysis today. The patient will require inpatient management secondary to her anemia. She was also seen by the attending physician. Appropriate paperwork was completed in regard to consent for transfusion. Case was discussed with the [facility] admission team, specifically I spoke with Dr. Simpson who will evaluate the patient.. I attest that I have personally reviewed the patient medication list. I attest that I have reviewed the patient's blood pressure and it was found to be Elevated In the evaluation and treatment of this patient the following differential diagnoses were entertained: GI bleed, anemic of chronic disease, false/lab error , among others. Impression Primary Impression: Anemia Additional Impression: Heme positive stool Departure Information Dispostion Admitted as an inpatient Condition FAIR Referrals Noam Armando M.D. (PCP) Patient Instructions [facility] Problem Qualifiers
[2017-06-16 07:34] LABS: INR 1.9 (0.9-1.1); PTT PATIENT 32.4 SECONDS (21.0-31.0)
[2017-06-16 07:36] LABS: ISTAT CREATININE 9.2 mg/dl (0.6-1.3); ISTAT IONIZED CALCIUM 1.08 mmol/l (1.12-1.32)
[2017-06-16 07:36] LABS: HEMATOCRIT 18.3 % (37-47); HEMOGLOBIN 5.8 g/dL (12.0-16.0); MEAN CELL VOLUME 119.6 fL (80-100); MEAN CORPUSCULAR HEMOGLOBIN 37.9 pg (25-34); MEAN CORPUSCULAR HGB CONC 31.7 g/dl (32-36); MEAN PLATELET VOLUME 9.2 fL (7.4-10.4); PLATELET COUNT 247 K/uL (130-400); RED CELL DISTRIBUTION WIDTH CV 21.4 % (11.5-14.5); RED CELL DISTRIBUTION WIDTH SD 88.5 fL (36.4-46.3)
[2017-06-16] MEDS ORDERED: VNTHFA/IN INH (07:59)
[2017-06-16] MEDS ORDERED: ERGO500037 PO (07:59)
[2017-06-16] MEDS ORDERED: EPGI10M (07:59)
[2017-06-16] MEDS ORDERED: ACETAMINOPHEN 325 MG TAB PO ONE (08:00)
[2017-06-16 08:01] LABS: ALBUMIN 3.1 gm/dl (3.4-5.0); ALKALINE PHOSPHATASE 89 U/L (45-117); ALT/SGPT 29 U/L (12-78); AST/SGOT 18 U/L (15-37); BLOOD UREA NITROGEN 55 mg/dl (7-18); CALCIUM 8.7 mg/dl (8.5-10.1); CARBON DIOXIDE 28 mmol/L (21-32); GLUCOSE 180 mg/dl (70-99); POTASSIUM 3.8 mmol/L (3.5-5.1); SODIUM 137 mmol/L (136-145); TOTAL PROTEIN 6.5 gm/dl (6.4-8.2)
[2017-06-16] MEDS ORDERED: LIDO1CRE58 TOP (08:02)
[2017-06-16] MEDS ORDERED: LSX40 PO (08:02)
[2017-06-16 08:06] LABS: BASO % 0.5 %; BASO ABS # 0.03 K/uL (0-0.2); EOS % 1.8 %; EOS ABS # 0.11 K/uL (0-0.5); IG# 0.03 K/uL (0.00-0.02); LYMPH % 14.7 %; LYMPH ABS # 0.88 K/uL (1.2-3.4); MONO % 7.8 %; MONO ABS # 0.47 K/uL (0.11-0.59); NEUT % 74.7 %; NEUT ABS # 4.48 K/uL (1.4-6.5); NUCLEATED RED BLOOD CELL ABS 0.02 K/uL (0-0)
[2017-06-16] MEDS ORDERED: INSDGI SC (08:17)
[2017-06-16] MEDS: PANTOprazole INJ 40 MG in DEXTROSE 5% 100ML IV SCH ×3 (08:18→18:49)
[2017-06-16] MEDS ORDERED: PHARMACY GLYCEMIC MGMT CONSULT PRN (09:43)
[2017-06-16] MEDS ORDERED: GLUCOSE 40% GEL 15 GM TUBE PO PRN (09:45)
[2017-06-16] MEDS ORDERED: ONDANSETRON INJ 2 MG/ML 2 ML VIAL IV PRN (09:45)
[2017-06-16] MEDS ORDERED: DEXTROSE 50% 50 ML SYR IV PRN (09:45)
[2017-06-16] MEDS ORDERED: POLYETHYLENE (MIRALAX) 17 GM PACK PO PRN (09:45)
[2017-06-16] MEDS ORDERED: ACETAMINOPHEN 325 MG TAB PO PRN (09:45)
[2017-06-16] MEDS ORDERED: GLUCOSE 10 TABS/TUBE PO PRN (09:45)
[2017-06-16] MEDS ORDERED: GLUCAGON FOR INJ 1 MG VIAL SQ PRN (09:45)
[2017-06-16] MEDS ORDERED: FUROSEMIDE INJ 40 MG in SYRINGE 0 ML IV SCH (10:00)
[2017-06-16] MEDS ORDERED: ALBUT/IPRATROP 3MG/0.5MG NEB 3 ML VIAL INH PRN (10:00)
[2017-06-16] MEDS ORDERED: ALBUTEROL HFA 8 GM INHALER INH PRN (10:00)
[2017-06-16] MEDS ORDERED: PHYTONADIONE INJ 5 MG in SODIUM CHLORIDE 0.9% 50ML 50 ML IV ONE (10:00)
[2017-06-16] MEDS ORDERED: LIDOCAINE/PRILOCAINE 2.5% EA CRM EXT PRN ×3 (10:00→10:45)
--- NOTE | 2017-06-16 10:13 | History and Physical ---
History & Physical Date & Time of Service: Jun 16, 2017 at 09:54 Chief Complaint: Gi Bleed Primary Care Physician: Noam Armando M.D. History of Present Illness Source: patient, clinic records, hospital records 72-year-old female who presents to the emergency the room via private vehicle reports that the dialysis center called her and told her she needed a blood transfusion for anemia. She stated that her hemoglobin was 6. She denies any nausea vomiting or seeing any bright red blood per rectum. She does admit to weakness over the last 3 days especially in her legs, and she does report black tarry stool for the last 3 days associated with some diarrhea. She denies being on iron supplements. FOBT was positive in the ER. She denies any abdominal pain or lightheadedness. She denies any chest pain. She reports feeling cold for the last 3 days. She has chronic hypoxia and is on 3 L of oxygen via nasal cannula at baseline, and reports some increased shortness of breath over the last 3 days. She reports becoming more fatigued while peeling potatoes which was new for her. She denies any recent weight gain. She was due for hemodialysis today and nephrology is aware. She has a history of atrial fibrillation and is on Coumadin she denies a history of GI bleed in the past. Last colonoscopy was April 2015 revealing tubular adenoma and hyperplastic polyps. Last upper endoscopy was January 2016 revealing gastritis and a positive H. pylori on biopsy. The patient has a history of pancreatic cysts. On arrival to the ER blood pressure was 151/63 pulse was 72 she was afebrile and oxygenating 94% on room air. On physical exam she was in no acute distress, she appears pale, there were no signs of cyanosis, lung and heart exam were normal, there was no evidence of edema. Rectal exam was unremarkable with no evidence of bright red blood but a positive Hemoccult stool test. Lab work reveals a white count of 6, H&H of 6 and 18, platelet 250. Sodium, potassium are normal BUN is 55 with creatinine 8.80. EKG reveals sinus rhythm with no signs of ischemia. She was given a Protonix bolus of 80 IV in the ER and was consented for blood. She was transferred to telemetry. GI and nephrology were consulted. A Protonix drip was continued with serial H& H is ordered as well as serial orthostatic vital signs. 2 units of blood were ordered. Vitamin K 5 mg IV was administered. Review of systems was otherwise negative. Past Medical/Surgical History Medical Problems: (1) A-fib Permanent Comment: paroxysmal Status: Chronic (2) Adrenal adenoma Status: Chronic (3) Anemia of chronic disease Status: Chronic (4) AV fistula Status: Chronic (5) CHF (congestive heart failure) Status: Chronic (6) Chronic respiratory failure Status: Chronic (7) Chronic respiratory failure with hypoxia Status: Chronic (8) COPD, moderate Status: Chronic (9) DM type 2 (diabetes mellitus, type 2) Status: Chronic (10) Dyslipidemia Status: Chronic (11) ESRD (end stage renal disease) on dialysis Status: Chronic (12) H/O cardiovascular stress test Permanent Comment: 05/2013 - negative for ischemia Status: Chronic (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 (14) History of Helicobacter pylori infection Status: Chronic (15) Hypertension Nos Status: Chronic (16) Moderate mitral regurgitation Permanent Comment: moderate to severe on 12/2015 echo Status: Chronic (17) Obesity Status: Chronic (18) Osteoarthritis Status: Chronic (19) Pancreatic cyst Status: Chronic (20) Psoriasis Status: Chronic (21) Renal cyst Status: Chronic Surgical Problems: (1) H/O colonoscopy Permanent Comment: 2005, hyperplastic polyps repeat in 10 years Status: Chronic (2) H/O nasal polypectomy Status: Chronic (3) History of cataract surgery Status: Chronic (4) S/P appendectomy Permanent Comment: 1971 Status: Chronic (5) S/P cholecystectomy Permanent Comment: 1971 Status: Chronic (6) S/P left oophorectomy Permanent Comment: 1981 Status: Chronic (7) S/P ASH (total abdominal hysterectomy) Permanent Comment: For Fibroids Status: Chronic Family History Diabetes mellitus FATHER MOTHER BROTHER FH: cancer BROTHER FH: heart disease FATHER Hypertension BROTHER Kidney disease BROTHER Social History Smoking Status: Former Smoker Smokeless Tobacco Use: Unknown Drug Use: none Marital Status: Housing status: lives alone Occupational Status: retired Immunizations History of Influenza Vaccine: Yes Influenza Vaccine Date: Dec 26, 2014 History of Tetanus Vaccine?: Yes Tetanus Immunization Date: August 04, 2010 History of Pneumococcal: Yes Pneumococcal Date: Feb 24, 2015 Allergies Coded Allergies: No Known Allergies (Verified , 06/16/17) Home Medications Scheduled Calcium Acetate (Phoslo 667 Mg), 2 CAP PO TIDM Camphor & Menthol (Sarna), 1 APPLN TD PRN Clonidine Hcl (Catapres), 0.1 MG PO BID Cyanocobalamin (Cyanocobalamin), 1,000 MCG IM MONTHLY Diltiazem Hcl Coated Beads (Diltiazem Cd), 120 MG PO QAM Ergocalciferol (Vitamin D 08484 Unit), 50,000 UNIT PO MONTHLY Fluticasone Prop/Salmeterol (Advair Diskus 250/50 60 Dose), 2 PUFF INH BID Furosemide (Furosemide), 40 MG PO DAILY Home O2 Therapy (Oxygen), 2.5 LITERS NA CONTINOUS Insulin Aspart (Novolog Flexpen), 2-3 UNITS SQ TIDM Insulin Glargine (Lantus), 26 UNITS SC QAM Losartan Potassium (Cozaar), 100 MG PO DAILY Prednisolone Acetate (Ophth) (Pred Forte 1% Oph), 1 DROPS OPL DAILY Umeclidinium [place] (Incruse Ellipta), 1 PUFF INH DAILY Valacyclovir Hcl (Valtrex), 1,000 MG PO DAILY Vitamin B Cmplx/Vitc/Folic Ac (Nephrocaps), 1 CAP PO DAILY Warfarin Sod (Coumadin), 5 MG PO 3XWK Warfarin Sod (Coumadin), 7.5 MG PO 4XWK Scheduled PRN Acetaminophen (Apap), 650 MG PO Q6 PRN for Pain Albuterol Hfa (Ventolin Hfa), 2 PUFFS INH Q4 PRN for SOB/Wheezing Ipratropium-Albuterol (Duoneb), 1 TREATMENT INH QID PRN for SOB/Wheezing Lidocaine-Prilocaine (Vamaxrmry-Xwdwvytjmv-Bgos 2.5-2.5 %), 1 APPLN TOP UD PRN for PRIOR TO DIALYSIS Loperamide Hcl (Loperamide Hcl), 2 MG PO QID PRN for Diarrhea Miscellaneous Medications Epoetin [place]akan (Procrit) Review of Systems At least 10 systems were reviewed and negative except as indicated in HPI above. Physical Exam Vital Signs Date Time Temp Pulse Resp B/P (MAP) Pulse Ox O2 Delivery O2 Flow Rate FiO2 06/16/17 08:45 36.8 70 16 147/68 (94) 100 Nasal Cannula 3.0 06/16/17 08:45 36.8 70 16 147/68 100 Nasal Cannula 3.0 06/16/17 08:18 70 18 141/71 100 Nasal Cannula 3.0 06/16/17 07:10 100 Nasal Cannula 3.0 06/16/17 07:06 70 06/16/17 06:55 100 Nasal Cannula 3.0 06/16/17 06:41 36.6 72 18 151/63 94 Room Air General Appearance: no apparent distress, + obese Head: normocephalic, atraumatic Eyes: normal inspection, PERRL, sclerae normal ENT: hearing grossly normal Neck: trachea midline Respiratory/Chest: lungs clear, normal breath sounds, no respiratory distress, no accessory muscle use Cardiovascular: regular rate, rhythm, no edema, no gallop, no JVD, no murmur Abdomen/GI: normal bowel sounds, soft, + tenderness (generalized in lower abdomen, small area of ecchymosis is present.) Extremities/Musculoskelatal: normal inspection, no pedal edema Neurologic/Psych: no motor/sensory deficits, alert, normal mood/affect, oriented x 3 Skin: warm/dry, no rash, + pallor Diagnostics Laboratory Results 06/16/17 07:20 Red Blood Count 1.53, Mean Corpuscular Volume 119.6, Mean Corpuscular Hemoglobin 37.9, Mean Corpuscular Hemoglobin Concent 31.7, Mean Platelet Volume 9.2, Neutrophils (%) (Auto) 74.7, Lymphocytes (%) (Auto) 14.7, Monocytes (%) ( Auto) 7.8, Eosinophils (%) (Auto) 1.8, Basophils (%) (Auto) 0.5, Neutrophils # ( Auto) 4.48, Lymphocytes # (Auto) 0.88, Monocytes # (Auto) 0.47, Eosinophils # ( Auto) 0.11, Basophils # (Auto) 0.03 06/16/17 07:20 Test 06/16/17 07:20 06/16/17 07:24 White Blood Count 6.00 K/uL (4.8-10.8) Red Blood Count 1.53 M/uL (4.2-5.4) Hemoglobin 5.8 g/dL (12.0-16.0) Hematocrit 18.3 % (37-47) Mean Corpuscular Volume 119.6 fL (80-100) Mean Corpuscular Hemoglobin 37.9 pg (25-34) Mean Corpuscular Hemoglobin Concent 31.7 g/dl (32-36) Platelet Count 247 K/uL (130-400) Mean Platelet Volume 9.2 fL (7.4-10.4) Neutrophils (%) (Auto) 74.7 % Lymphocytes (%) (Auto) 14.7 % Monocytes (%) (Auto) 7.8 % Eosinophils (%) (Auto) 1.8 % Basophils (%) (Auto) 0.5 % Neutrophils # (Auto) 4.48 K/uL (1.4-6.5) Lymphocytes # (Auto) 0.88 K/uL (1.2-3.4) Monocytes # (Auto) 0.47 K/uL (0.11-0.59) Eosinophils # (Auto) 0.11 K/uL (0-0.5) Basophils # (Auto) 0.03 K/uL (0-0.2) RDW Standard Deviation 88.5 fL (36.4-46.3) RDW Coefficient of Variation 21.4 % (11.5-14.5) Immature Granulocyte % (Auto) 0.5 % Immature Granulocyte # (Auto) 0.03 K/uL (0.00-0.02) Nucleated RBC Absolute Count (auto) 0.02 K/uL (0-0) Nucleated Red Blood Cells % 0.3 % Polychromasia 1+ Anisocytosis PRESENT Macrocytosis PRESENT Prothrombin Time 19.7 SECONDS (9.0-12.0) Prothromb Time International Ratio 1.9 (0.9-1.1) Activated Partial Thromboplast Time 32.4 SECONDS (21.0-31.0) Partial Thromboplastin Ratio 1.2 Est Creatinine Clear Calc Drug Dose 6.8 ml/min Estimated GFR () 4.8 Estimated GFR (Non- 4.1 BUN/Creatinine Ratio 6.3 (10-20) Calcium Level 8.7 mg/dl (8.5-10.1) Magnesium Level 2.2 mg/dl (1.8-2.4) Total Bilirubin 0.4 mg/dl (0.2-1) Aspartate Amino Transf (AST/SGOT) 18 U/L (15-37) Alanine Aminotransferase (ALT/SGPT) 29 U/L (12-78) Alkaline Phosphatase 89 U/L (45-117) Troponin I < 0.015 ng/ml (0-0.045) Total Protein 6.5 gm/dl (6.4-8.2) Albumin 3.1 gm/dl (3.4-5.0) Globulin 3.4 gm/dl (2.5-4.0) Albumin/Globulin Ratio 0.9 (0.9-2) Bedside Hemoglobin 5.4 g/dl (12.0-16.0) Bedside Hematocrit 16 % (37-47) Bedside Sodium 139 mEq/L (135-144) Bedside Potassium 4.0 mEq/L (3.3-5.0) Bedside Chloride 97 mEq/L (101-112) Bedside Total CO2 29 mEq/l (24-31) Anion Gap 17.0 mmol/L (16-25) Bedside Blood Urea Nitrogen 61 mg/dl (7-18) Bedside Creatinine 9.2 mg/dl (0.6-1.3) Bedside Glucose (other) 186 mg/dl (70-99) Bedside Ionized Calcium (Tyler) 1.08 mmol/l (1.12-1.32) Results Past 24 Hours Test 06/16/17 07:20 06/16/17 07:24 Range/Units White Blood Count 6.00 4.8-10.8 K/uL Red Blood Count 1.53 4.2-5.4 M/uL Hemoglobin 5.8 12.0-16.0 g/dL Hematocrit 18.3 37-47 % Mean Corpuscular Volume 119.6 80-100 fL Mean Corpuscular Hemoglobin 37.9 25-34 pg Mean Corpuscular Hemoglobin Concent 31.7 32-36 g/dl Platelet Count 247 130-400 K/uL Mean Platelet Volume 9.2 7.4-10.4 fL Neutrophils (%) (Auto) 74.7 % Lymphocytes (%) (Auto) 14.7 % Monocytes (%) (Auto) 7.8 % Eosinophils (%) (Auto) 1.8 % Basophils (%) (Auto) 0.5 % Neutrophils # (Auto) 4.48 1.4-6.5 K/uL Lymphocytes # (Auto) 0.88 1.2-3.4 K/uL Monocytes # (Auto) 0.47 0.11-0.59 K/uL Eosinophils # (Auto) 0.11 0-0.5 K/uL Basophils # (Auto) 0.03 0-0.2 K/uL RDW Standard Deviation 88.5 36.4-46.3 fL RDW Coefficient of Variation 21.4 11.5-14.5 % Immature Granulocyte % (Auto) 0.5 % Immature Granulocyte # (Auto) 0.03 0.00-0.02 K/uL Nucleated RBC Absolute Count (auto) 0.02 0-0 K/uL Nucleated Red Blood Cells % 0.3 % Polychromasia 1+ Anisocytosis PRESENT Macrocytosis PRESENT Prothrombin Time 19.7 9.0-12.0 SECONDS Prothromb Time International Ratio 1.9 0.9-1.1 Activated Partial Thromboplast Time 32.4 21.0-31.0 SECONDS Partial Thromboplastin Ratio 1.2 Sodium Level 137 136-145 mmol/L Potassium Level 3.8 3.5-5.1 mmol/L Chloride Level 98 98-107 mmol/L Carbon Dioxide Level 28 21-32 mmol/L Anion Gap 11.0 17.0 16-25 mmol/L Blood Urea Nitrogen 55 7-18 mg/dl Creatinine 8.80 0.60-1.20 mg/dl Est Creatinine Clear Calc Drug Dose 6.8 ml/min Estimated GFR () 4.8 Estimated GFR (Non- 4.1 BUN/Creatinine Ratio 6.3 10-20 Random Glucose 180 70-99 mg/dl Calcium Level 8.7 8.5-10.1 mg/dl Magnesium Level 2.2 1.8-2.4 mg/dl Total Bilirubin 0.4 0.2-1 mg/dl Aspartate Amino Transf (AST/SGOT) 18 15-37 U/L Alanine Aminotransferase (ALT/SGPT) 29 12-78 U/L Alkaline Phosphatase 89 45-117 U/L Troponin I < 0.015 0-0.045 ng/ml Total Protein 6.5 6.4-8.2 gm/dl Albumin 3.1 3.4-5.0 gm/dl Globulin 3.4 2.5-4.0 gm/dl Albumin/Globulin Ratio 0.9 0.9-2 Bedside Hemoglobin 5.4 12.0-16.0 g/dl Bedside Hematocrit 16 37-47 % Bedside Sodium 139 135-144 mEq/L Bedside Potassium 4.0 3.3-5.0 mEq/L Bedside Chloride 97 101-112 mEq/L Bedside Total CO2 29 24-31 mEq/l Bedside Blood Urea Nitrogen 61 7-18 mg/dl Bedside Creatinine 9.2 0.6-1.3 mg/dl Bedside Glucose (other) 186 70-99 mg/dl Bedside Ionized Calcium (Tyler) 1.08 1.12-1.32 mmol/l Normal EKG Impression Assessment and Plan 72-year-old female presents with black tarry stools and severe anemia 1. Anemia-likely secondary to acute GI bleed in the setting of known CKD on Procrit. Protonix drip with bolus was started. Patient is hemodynamically stable, but is being monitored on telemetry. Vitamin K was given for reversal of Coumadin. GI was consulted. Hold diuretics and blood pressure meds as well as warfarin. Giving 2 units of red blood cells. Trend H&H. 2. Chronic hypoxic respiratory failure secondary to COPD-patient is not working to breathe and appears stable without wheezing. She is on 3 L at baseline. Will continue supplemental oxygen per her home regimen 3. ESRD on hemodialysis-nephrology aware of need for dialysis and consulted for this as inpatient 4. Diabetes type 2-pharmacy consult placed, insulin sliding scale with carb coverage for now. Patient is currently n.p.o. pending GI assessment. Lantus will likely be needed but is currently not ordered. Appreciate pharmacist assistance with management. 5. Paroxysmal atrial fibrillation-continue diltiazem, hold Coumadin. 6. Chronic diastolic heart failure-compensated. Diuretics were held. 7. Recent HCAP-patient was discharged 1 month ago after treatment for pneumonia. Repeat chest x-ray is pending. Patient denies any symptoms of coughing or fevers at this time. DVT prophylaxis-SCDs, chemoprophylaxis contraindicated in setting of bleed. Full code Disposition-telemetry DO [facility] Advanced Directives Existing Living Will: No Existing Power of Offal Icer Poultry: No Resuscitation Status VTE Prophylaxis Will order VTE Prophylaxis: Yes
[2017-06-16] MEDS ORDERED: INSULIN GLARGINE SOLOSTAR 100 UNITS/ML 3 ML PEN SC ONE (11:00)
[2017-06-16] MEDS ORDERED: EPOETIN ALFA 10,000 UNITS/ML VIAL IV. SCH (11:00)
[2017-06-16] MEDS: INSULIN ASPART 100 UNITS/ML 3 ML PEN SC SCH ×3 (11:00→20:36)
--- NOTE | 2017-06-16 11:10 | Pharmacy Progress Note ---
Glycemic Control Intl Consult Date of Service Jun 16, 2017. Scope Glycemic Pharmacist consulted by Dr Simpson on 06/16/17 for glycemic control and to write orders per [facility] inpatient glycemic control protocol Objective Weight (Kilograms): 91.900 Accuchecks BSG (last 24hrs): Test 06/16/17 07:20 Random Glucose 180 mg/dl (70-99) Laboratory Data (last 24hrs) Test 06/16/17 07:20 06/16/17 07:24 Anion Gap 11.0 mmol/L 17.0 mmol/L BUN/Creatinine Ratio 6.3 Blood Urea Nitrogen 55 mg/dl Creatinine 8.80 mg/dl Potassium Level 3.8 mmol/L Sodium Level 137 mmol/L White Blood Count 6.00 K/uL Red Blood Count 1.53 M/uL Hemoglobin 5.8 g/dL Hematocrit 18.3 % Mean Corpuscular Volume 119.6 fL Mean Corpuscular Hemoglobin 37.9 pg Mean Corpuscular Hemoglobin Concent 31.7 g/dl Platelet Count 247 K/uL Mean Platelet Volume 9.2 fL Neutrophils (%) (Auto) 74.7 % Lymphocytes (%) (Auto) 14.7 % Monocytes (%) (Auto) 7.8 % Eosinophils (%) (Auto) 1.8 % Basophils (%) (Auto) 0.5 % Neutrophils # (Auto) 4.48 K/uL Lymphocytes # (Auto) 0.88 K/uL Monocytes # (Auto) 0.47 K/uL Eosinophils # (Auto) 0.11 K/uL Basophils # (Auto) 0.03 K/uL Recent Pertinent Medications Outpatient Anti-diabetic Regimen: * Lantus 26 units SQ Q AM * Novolog 2-3 units w/ meals * A1c = 5.7 % 05/15/17 (interpret w/ caution due to ESRD) The patient is currently receiving: * Basal insulin: Lantus 8 units every 12 hours * Correctional Insulin: Novolog Correction per scale ACHS Goal Range: Low 140 mg/dL - High 180 mg/dL Correction Factor: 45 mg/dL/unit * Prandial insulin: Per carb ratio of 1 unit per 16 grams CHO consumed Risk Factors for Insulin Resistance: * IVF: pantoprazole drip mixed in D5W * Diet: NPO Assessment & Plan ASSESSMENT: 06/16/17 * Type 2 diabetic admitted today with anemia likely secondary to GIB (+ diarrhea , + melena, + FOBT) * Hemodynamically stable * Patient was hospitalized last month - reviewed past admission for insight into prior insulin requirements * On her last admit she received Lantus 10 units BID which produced FBSs in the 90's - low 100's. Will continue provider's order for 8 units BID as she is NPO and FBS 100-140 acceptable. Patient did not receive her AM dose of Lantus today. * Prandial and correctional insulin doses are also fairly small. Will base insulin doses on daily need of ~35-45 units/day. PLAN FOR INPATIENT GLYCEMIC CONTROL: * Continuing Lantus 8 units SQ BID - 1st dose now due to missing AM dose and BSG in 180's range * Changing correction factor to 35 mg/dl/unit * Changing carb ratio to 1 unit per 11 grams CHO consumed * Changing goal range to Low 120 mg/dL - High 160 mg/dL to allow for some buffer against hypoglycemia. * Please note that the plan above was derived based on current level of insulin resistance and hospital stress. These recommendations are appropriate for inpatient admission only. Plan of care upon discharge will need to be reassessed to avoid potential outpatient hypo/hyperglycemia. Thank you.
[2017-06-16] MEDS: CALCIUM ACETATE 667MG GELCAP PO SCH ×2 (11:30→16:54)
[2017-06-16] MEDS ORDERED: UMEC1INH INH (11:35)
[2017-06-16] MEDS ORDERED: LOSA1TAB38 PO (11:39)
[2017-06-16] MEDS ORDERED: CALC667C4 PO (11:44)
[2017-06-16] MEDS ORDERED: B-CO1CAP17 PO (11:47)
[2017-06-16] MEDS ORDERED: VALA1TAB2 PO (11:49)
--- NOTE | 2017-06-16 12:54 | Gastrointestinal Consultation ---
Gastrointestinal Consultation Date of Consultation: Jun 16, 2017 Attending Physician: Laverne Simpson Consulting Physician: Maribel Byers Reason for Consultation: Anemia, black tarry stools History of Present Illness Patient is a 72 year old female who was referred by dialysis center to ED for blood transfusion for worsening anemia. Pt reports that for last 2-3 days she felt weak, and cannot perform ADLs as well and feeling SOB. Also noted black liquid like stools. Denies any n/v, abd pain. She goes for hemodialysis every , ,Sat. Sometimes get iron supplements there. Baseline Hgb around 8-10. Admission labs showed H/H of 5/16. She tested FOBT positive in ED. She has hx of Afib on Coumadin, INR 1.0. Her GI hx were positive for gastritis, Hpylori found via EGD in 2016. Hpylori stool test in 2017 negative. Also had hx of colon polyps (TA and hyperplastic) noted on colonoscopy in 2016. She had been fluid resuscitated, and also awaiting blood transfusion. PPI bolus and gtt also started. Past Medical/Surgical History Medical Problems: (1) Acute respiratory failure with hypoxia Status: Acute (2) Anemia Status: Acute (3) Anemia Status: Acute (4) Anemia, chronic renal failure Status: Acute (5) Chest pain Status: Acute (6) CHF (congestive heart failure) Status: Acute (7) CHF (congestive heart failure) Status: Acute (8) CHF exacerbation Status: Acute (9) Chronic obstructive pulmonary disease Status: Acute (10) COPD (chronic obstructive pulmonary disease) Status: Acute (11) COPD exacerbation Status: Acute (12) End stage renal disease Status: Acute (13) End stage renal disease on dialysis Status: Acute (14) GI bleed Status: Acute (15) GI bleed Status: Acute (16) Heme positive stool Status: Acute (17) Hemoptysis Status: Acute (18) Hypoxemia Status: Acute (19) Hypoxia Status: Acute (20) Left lower lobe pneumonia Status: Acute (21) PNA (pneumonia) Status: Acute (22) Pneumonia Status: Acute (23) Pulmonary congestion Status: Acute (24) Rapid atrial fibrillation Status: Acute (25) Respiratory failure Status: Acute (26) Right lower lobe pneumonia Status: Acute (27) Shortness of breath Status: Acute (28) Supratherapeutic INR Status: Acute Past Medical History: Medical Problems: (1) A-fib Permanent Comment: paroxysmal Status: Chronic (2) Adrenal adenoma Status: Chronic (3) Anemia of chronic disease Status: Chronic (4) AV fistula Status: Chronic (5) CHF (congestive heart failure) Status: Chronic (6) Chronic respiratory failure Status: Chronic (7) Chronic respiratory failure with hypoxia Status: Chronic (8) COPD, moderate Status: Chronic (9) DM type 2 (diabetes mellitus, type 2) Status: Chronic (10) Dyslipidemia Status: Chronic (11) ESRD (end stage renal disease) on dialysis Status: Chronic (12) H/O cardiovascular stress test Permanent Comment: 05/2013 - negative for ischemia Status: Chronic (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 (14) History of Helicobacter pylori infection Status: Chronic (15) Hypertension Nos Status: Chronic (16) Moderate mitral regurgitation Permanent Comment: moderate to severe on 12/2015 echo Status: Chronic (17) Obesity Status: Chronic (18) Osteoarthritis Status: Chronic (19) Pancreatic cyst Status: Chronic (20) Psoriasis Status: Chronic (21) Renal cyst Status: Chronic Past Surgical History: Surgical Problems: (1) H/O colonoscopy Permanent Comment: 2005, hyperplastic polyps repeat in 10 years Status: Chronic (2) H/O nasal polypectomy Status: Chronic (3) History of cataract surgery Status: Chronic (4) S/P appendectomy Permanent Comment: 1971 Status: Chronic (5) S/P cholecystectomy Permanent Comment: 1971 Status: Chronic (6) S/P left oophorectomy Permanent Comment: 1981 Status: Chronic (7) S/P ASH (total abdominal hysterectomy) Permanent Comment: For Fibroids Status: Chronic Family History Diabetes mellitus FATHER MOTHER BROTHER FH: cancer BROTHER FH: heart disease FATHER Hypertension BROTHER Kidney disease BROTHER Social History Smoking Status: Former Smoker Alcohol Use: none Drug Use: none Marital Status: Housing Status: lives with family Occupation Status: retired Allergies Coded Allergies: No Known Allergies (Verified , 06/16/17) Current Medications Home Meds and Scripts Medications Dose Route/Sig Max Daily Dose Days Date Category Dose Instructions Sarna (Camphor & Menthol) 1 Lot Lot 1 Appln TD PRN 05/14/17 Reported APPLY TO SKIN NEEDED FOR ITCHING Loperamide Hcl 2 Mg Tab 2 Mg PO QID PRN 05/14/17 Reported Coumadin (Warfarin Sod) 7.5 Mg Tab 7.5 Mg PO 4XWK 02/28/17 Reported 1 1/2 TABLET DOSE EVERY TUESDAY/TUESDAY/TUESDAY/TUESDAY. Coumadin (Warfarin Sod) 5 Mg Tab 5 Mg PO 3XWK 02/28/17 Reported TAKE 5 MG EVERY TUESDAY/TUESDAY/TUESDAY. Diltiazem Cd (Diltiazem Hcl Coated Beads) 120 Mg Cap 120 Mg PO QAM 02/28/17 Reported Pred Forte 1% Oph (Prednisolone Acetate (Ophth)) 1 % Neena 1 Drops OPL DAILY 10/26/16 Reported Duoneb (Ipratropium-Albuterol) 3 Ml Nebu 1 Treatment INH QID PRN 10/26/16 Reported Apap (Acetaminophen) 325 Mg Tab 650 Mg PO Q6 PRN 10/26/16 Reported Valtrex (Valacyclovir Hcl) 1 Gm Tab 1,000 Mg PO DAILY 10/26/16 Reported Nephrocaps (Vitamin B Complex/Vit C/Folic Acid) Cap 1 Cap PO DAILY 10/26/16 Reported Phoslo 667 Mg (Calcium Acetate) 667 Mg Cap 2 Cap PO TIDM 10/26/16 Reported Cozaar (Losartan Potassium) 100 Mg Tab 100 Mg PO DAILY 10/26/16 Reported Incruse Ellipta (Umeclidinium [place]) 62.5 Mcg/Inh Inh 1 Puff INH DAILY 10/26/16 Reported Lantus (Insulin Glargine) 100 Unit/Ml Inj 26 Units SC QAM 07/13/16 Reported Furosemide 40 Mg Tab 40 Mg PO DAILY 05/01/16 Reported Bmopmowou-Lumxchvqbd-Xcoc 2.5-2.5 % (Lidocaine-Prilocaine) 1 Cre Cre 1 Appln TOP UD PRN 05/01/16 Reported APPLY SMALL AMT TO ACCESS SITE 1-2 HOURS BEFORE DIALYSIS. COVER WITH SARAN WRAP Vitamin D 98266 Unit (Ergocalciferol) 50,000 Unit Cap 50,000 Unit PO MONTHLY 05/01/16 Reported 9th Procrit (Epoetin [place]) 10,000 Units Inj 05/01/16 Reported per dialysis clinic Ventolin Hfa (Albuterol) 200 Puffs/71809 Mcg Aers 2 Puffs INH Q4 PRN 05/01/16 Reported Cyanocobalamin 1,000 Mcg/Ml Inj 1,000 Mcg IM MONTHLY 04/12/16 Reported Oxygen Gas 2.5 Liters NA CONTINOUS 05/15/15 Reported Advair Diskus 250/50 60 Dose (Fluticasone Prop/Salmeterol) 1 Ea Aerp 2 Puff INH BID 05/15/15 Reported Catapres (Clonidine Hcl) 0.1 Mg Tab 0.1 Mg PO BID 05/15/15 Reported Novolog Flexpen (Insulin Aspart) 100 Units/Ml Inj 2-3 Units SQ TIDM 04/01/15 Reported TAKES PER SLIDING SCALE Review of Systems Constitutional: + weakness, No fever, No chills Respiratory: + shortness of breath Cardiac: No chest pain Abdomen: + see HPI, + GI bleeding, No pain, No nausea, No vomiting Skin: No rash, No itch Physical Exam Date Time Temp Pulse Resp B/P (MAP) Pulse Ox O2 Delivery O2 Flow Rate FiO2 06/16/17 12:30 36.8 66 18 153/75 100 3.0 06/16/17 12:30 66 153/75 06/16/17 12:15 36.8 65 18 158/74 100 3.0 06/16/17 12:15 65 158/74 06/16/17 12:01 36.8 64 18 149/66 100 3.0 06/16/17 12:00 64 149/66 06/16/17 11:45 36.6 66 18 151/77 100 3.0 06/16/17 11:45 66 151/77 06/16/17 11:30 67 151/80 06/16/17 11:30 36.6 67 18 151/80 100 3.0 06/16/17 10:43 36.6 69 143/79 (100) 06/16/17 08:45 36.8 70 16 147/68 (94) 100 Nasal Cannula 3.0 06/16/17 08:45 36.8 70 16 147/68 100 Nasal Cannula 3.0 06/16/17 08:18 70 18 141/71 100 Nasal Cannula 3.0 06/16/17 07:10 100 Nasal Cannula 3.0 06/16/17 07:06 70 06/16/17 06:55 100 Nasal Cannula 3.0 06/16/17 06:41 36.6 72 18 151/63 94 Room Air General Appearance: WD/WN, no apparent distress Eyes: normal inspection, PERRL, EOMI Neck: supple, no JVD, trachea midline Respiratory/Chest: normal breath sounds, no respiratory distress, no accessory muscle use Cardiovascular: regular rate, rhythm, no gallop, no murmur Abdomen: normal bowel sounds, soft, + tenderness (mild TTP over ecchymosis area on mid lower abd area ) Extremities: normal inspection, no pedal edema, no calf tenderness Neurologic/Psych: alert, normal mood/affect, oriented x 3 Skin: normal color, no jaundice, no rash Laboratory Results Last 24 Hours Test 06/16/17 07:20 06/16/17 07:24 06/16/17 11:38 White Blood Count 6.00 K/uL Red Blood Count 1.53 M/uL Hemoglobin 5.8 g/dL Hematocrit 18.3 % Mean Corpuscular Volume 119.6 fL Mean Corpuscular Hemoglobin 37.9 pg Mean Corpuscular Hemoglobin Concent 31.7 g/dl Platelet Count 247 K/uL Mean Platelet Volume 9.2 fL Neutrophils (%) (Auto) 74.7 % Lymphocytes (%) (Auto) 14.7 % Monocytes (%) (Auto) 7.8 % Eosinophils (%) (Auto) 1.8 % Basophils (%) (Auto) 0.5 % Neutrophils # (Auto) 4.48 K/uL Lymphocytes # (Auto) 0.88 K/uL Monocytes # (Auto) 0.47 K/uL Eosinophils # (Auto) 0.11 K/uL Basophils # (Auto) 0.03 K/uL RDW Standard Deviation 88.5 fL RDW Coefficient of Variation 21.4 % Immature Granulocyte % (Auto) 0.5 % Immature Granulocyte # (Auto) 0.03 K/uL Nucleated RBC Absolute Count (auto) 0.02 K/uL Nucleated Red Blood Cells % 0.3 % Polychromasia 1+ Anisocytosis PRESENT Macrocytosis PRESENT Prothrombin Time 19.7 SECONDS Prothromb Time International Ratio 1.9 Activated Partial Thromboplast Time 32.4 SECONDS Partial Thromboplastin Ratio 1.2 Sodium Level 137 mmol/L Potassium Level 3.8 mmol/L Chloride Level 98 mmol/L Carbon Dioxide Level 28 mmol/L Anion Gap 11.0 mmol/L 17.0 mmol/L Blood Urea Nitrogen 55 mg/dl Creatinine 8.80 mg/dl Est Creatinine Clear Calc Drug Dose 6.8 ml/min Estimated GFR () 4.8 Estimated GFR (Non- 4.1 BUN/Creatinine Ratio 6.3 Random Glucose 180 mg/dl Calcium Level 8.7 mg/dl Magnesium Level 2.2 mg/dl Total Bilirubin 0.4 mg/dl Aspartate Amino Transf (AST/SGOT) 18 U/L Alanine Aminotransferase (ALT/SGPT) 29 U/L Alkaline Phosphatase 89 U/L Troponin I < 0.015 ng/ml Total Protein 6.5 gm/dl Albumin 3.1 gm/dl Globulin 3.4 gm/dl Albumin/Globulin Ratio 0.9 Bedside Hemoglobin 5.4 g/dl Bedside Hematocrit 16 % Bedside Sodium 139 mEq/L Bedside Potassium 4.0 mEq/L Bedside Chloride 97 mEq/L Bedside Total CO2 29 mEq/l Bedside Blood Urea Nitrogen 61 mg/dl Bedside Creatinine 9.2 mg/dl Bedside Glucose (other) 186 mg/dl Bedside Ionized Calcium (Tyler) 1.08 mmol/l Bedside Glucose 139 mg/dl Impression Patient is a 72 year old female admitted for symptomatic anemia, also noted to have black liquid stools for last 2-3 days, FOBT positive in ED. She is a non smoker, denies NSAIDs use. Does take Coumadin for Afib but INR was in range (1.9 ). Hx of gastritis and Hpylori in 2015 Plan - NPO - EGD eval tomorrow 06/17 once she's better resuscitated - Monitor H/H and transfuse prn - PPI gtt I have seen and examined the patient with TAYLOR Kyle whose note reflects our findings and plan. Melena. No abd pain. Drop in hgb from baseline. Will need an EGD tomorrow. Continue PPI gtt. Transfuse PRBC today. Resuscitate.
[2017-06-16] MEDS ORDERED: IPRASOL4 INH (13:30)
[2017-06-16] MEDS ORDERED: ACET325T82 PO (13:30)
[2017-06-16] MEDS ORDERED: PRED1SUS3 OPL (13:30)
[2017-06-16] MEDS ORDERED: ADVIN25/60 INH (13:34)
[2017-06-16] MEDS ORDERED: CLON0.1T12 PO (13:34)
[2017-06-16] MEDS ORDERED: OXGN (13:34)
--- NOTE | 2017-06-16 14:28 | EMERGENCY ROOM VISIT NOTE ---
ED Visit Note First contact with patient: 06:52 I have personally evaluated and examined this patient. I agree with assessment and plan of William Echevarria PA-C. Anemia quite severe on Coumadin with brown heme positive stools (notes black earlier). Vitals OK but she clearly will need transfusion and close monitoring and further work-up.
--- NOTE | 2017-06-16 15:58 | DIAGNOSTIC IMAGING REPORT ---
ABDOMEN 2VIEW W/PA CHEST RTN CLINICAL HISTORY: UGIB, receiving blood, needs admission CXR, no abd pain COMPARISON STUDY: T 2017 FINDINGS: Persistent right basilar parenchymal infiltrate. Slightly improved from the prior study. Mild stable cardiomegaly. Nonobstructive bowel pattern. Mild generalized nonobstructive ileus. IMPRESSION: 1. Mild parenchymal infiltrate right base. 2. Mild nonobstructive ileus. The above report was generated using voice recognition software. It may contain grammatical, syntax or spelling errors. Electronically signed by: Stevo Sanchez M.D. 06/16/2017 3:56 PM Dictated Date/Time: 06/16/2017 3:55 PM
--- NOTE | 2017-06-16 16:54 | NEPHROLOGY CONSULTATION ---
DATE OF CONSULTATION: 06/16/2017 ATTENDING OF RECORD: Dr. Simpson. REASON FOR CONSULTATION: ESRD. HISTORY OF PRESENT ILLNESS: This is a 72-year-old female who dialyzes at the [facility] on Tuesdays, , and Saturdays. On doing routine lab work, the patient's hemoglobin level is noted to be 6. When I called her this morning, the patient was noted to be weak and instructed to go to the Emergency Room. The patient underwent dialysis and had 2 units of blood transfused on dialysis with 1 liter fluid removal. Potassium level was stable at 4. Hemoglobin level this morning was down to 5.4. The patient continues to be weak and tired. GI evaluated the patient and is tentatively scheduled for an EGD evaluation tomorrow after she is better resuscitated and was recommending a Protonix drip. PAST MEDICAL HISTORY: Paroxysmal AFib, adrenal adenoma, anemia of renal failure, congestive heart failure with diastolic heart failure, moderate COPD, type 2 diabetes, hyperlipidemia, hypertension, and moderate MR. PAST SURGICAL HISTORY: Cataract surgery, appendectomy, cholecystectomy, oophorectomy, and hysterectomy. FAMILY HISTORY: Significant for diabetes. SOCIAL HISTORY: Former smoker. No drugs and no alcohol. CURRENT MEDICATIONS: Valtrex 1 gram p.o. daily, diltiazem 120 mg daily, Nephrocaps daily, clonidine 0.1 b.i.d., Advair 2 puffs inhaler twice a day, Lantus 8 units subQ b.i.d., and Protonix drip. REVIEW OF SYSTEMS: Positive weakness. Positive shortness of breath. No chest pain. No nausea or vomiting. No headaches. No rash. All other review of systems otherwise negative. PHYSICAL EXAMINATION: VITAL SIGNS: Temperature 36.6, pulse 65, respiratory rate is 18, blood pressure is 149/72, and satting 3 liters nasal cannula. GENERAL: Awake, alert, and oriented x3. Generalized weakness. EYES: No scleral icterus. ENT: Moist mucous membranes. NECK: Supple. PULMONARY: Basilar rales. CARDIAC: 2/6 systolic murmur. ABDOMEN: Bowel sounds positive. Soft and nontender. EXTREMITIES: No clubbing, cyanosis or edema. NEUROLOGICALLY: Nonfocal. DERMATOLOGIC: No rash or ulcers noted. LABORATORY DATA: Last H&H 5.5 and 16. Sodium level is 139, potassium is 4, chloride is 97, bicarbonate is 29, BUN is 61, creatinine is 9.2, and glucose 186. Ionized calcium 1.08. Albumin is 3.1. Transfused 2 units. Chest and abdominal x-ray shows mild parenchymal infiltrate at the right base and mild nonobstructive ileus. IMPRESSION AND PLAN: End-stage renal disease. The patient did undergo dialysis and removed 1 liter of fluid in the setting of getting transfused 2 units on a 2k bath to help prevent hyperkalemia and volume overload. The patient tentatively scheduled for an EGD tomorrow once better resuscitated. Okay to give more units of blood overnight off dialysis if medically necessary. We will reevaluate the patient for possible dialysis tomorrow if needed. I appreciate the consultation.
[2017-06-16 17:51] LABS: HEMATOCRIT 21.4 % (37-47); HEMOGLOBIN 7.1 g/dL (12.0-16.0)
[2017-06-16] MEDS ORDERED: DILT120C99 PO (20:50)
[2017-06-16] MEDS: CLONIDINE HCL 0.1 MG TAB PO SCH (21:00)
[2017-06-16] MEDS ORDERED: INSULIN GLARGINE SOLOSTAR 100 UNITS/ML 3 ML PEN SC SCH (21:00)
[2017-06-16] MEDS: FLUTICASONE/SALMETEROL 250/50 (ADVAIR) 14 PUFF/1 INHALER INH SCH (21:00)
[2017-06-16] MEDS ORDERED: CMD5 PO (21:01)
[2017-06-16] MEDS ORDERED: CMD75 PO (21:03)
[2017-06-16] MEDS: INSULIN GLARGINE SOLOSTAR 100 UNITS/ML 3 ML PEN SC SCH (21:08)
[2017-06-16] MEDS ORDERED: CYNI1000 IM (21:59)
[2017-06-17] VITALS (7 sets, daily range): BP systolic 121–168; BP diastolic 49–72; PULSE 60–66; TEMP 36.7–37.1; O2SAT 98–100
[2017-06-17] MEDS: PANTOprazole INJ 40 MG in DEXTROSE 5% 100ML IV SCH ×3 (00:37→09:29)
[2017-06-17 05:30] LABS: HEMATOCRIT 23.2 % (37-47); HEMOGLOBIN 7.6 g/dL (12.0-16.0)
[2017-06-17 06:19] LABS: CALCIUM 8.5 mg/dl (8.5-10.1); CREATININE 5.96 mg/dl (0.60-1.20); PHOSPHORUS 3.4 mg/dl (2.5-4.9); POTASSIUM 3.8 mmol/L (3.5-5.1)
[2017-06-17] MEDS: INSULIN ASPART 100 UNITS/ML 3 ML PEN SC SCH ×4 (07:00→21:00)
[2017-06-17] MEDS: CALCIUM ACETATE 667MG GELCAP PO SCH ×3 (07:30→17:17)
[2017-06-17 09:16] LABS: HEMOGLOBIN A1C 5.1 % (4.5-5.6)
[2017-06-17] MEDS: FLUTICASONE/SALMETEROL 250/50 (ADVAIR) 14 PUFF/1 INHALER INH SCH ×2 (09:26→20:47)
[2017-06-17] MEDS: CLONIDINE HCL 0.1 MG TAB PO SCH ×2 (09:27→20:48)
[2017-06-17] MEDS: NEPHROCAPS PO SCH (09:27)
[2017-06-17] MEDS: DILTIAZEM HCL 120 MG CAPCR PO SCH (09:28)
[2017-06-17] MEDS: PrednisoLONE ACET 1% OP SUSP 5 ML BTL OPL SCH (09:29)
[2017-06-17] MEDS ORDERED: POLYETHYLENE (MIRALAX) 17 GM PACK PO ONE (09:49)
--- NOTE | 2017-06-17 10:26 | Pharmacy Progress Note ---
Glycemic Control Progress Note Date of Service Jun 17, 2017. Scope Glycemic Pharmacist consulted for glycemic control to write orders per [facility] inpatient glycemic control protocol. Objective Accuchecks BSG (last 24hrs): Test 06/16/17 11:38 06/16/17 16:27 06/16/17 20:32 06/17/17 05:15 Bedside Glucose 139 mg/dl (70-90) 120 mg/dl (70-90) 129 mg/dl (70-90) Random Glucose 98 mg/dl (70-99) Test 06/17/17 07:10 Bedside Glucose 90 mg/dl (70-90) HbA1c: Test 06/17/17 05:15 Hemoglobin A1c 5.1 % (4.5-5.6) Recent Pertinent Medications Outpatient Anti-diabetic Regimen: * Lantus 26 units SQ Q AM * Novolog 2-3 units w/ meals * A1c = 5.1 % 06/17/17 (interpret w/ caution due to ESRD) The patient is currently receiving: * Basal insulin: Lantus 8 units every 12 hours * Correctional Insulin: Novolog Correction per scale ACHS Goal Range: Low 120 mg/dL - High 160 mg/dL Correction Factor: 35 mg/dL/unit * Prandial insulin: Per carb ratio of 1 unit per 11 grams CHO consumed Risk Factors for Insulin Resistance: * IVF: pantoprazole drip mixed in D5W * Diet: NPO Assessment & Plan ASSESSMENT: 06/16/17 * Type 2 diabetic admitted today with anemia likely secondary to GIB (+ diarrhea , + melena, + FOBT) * Hemodynamically stable * Patient was hospitalized last month - reviewed past admission for insight into prior insulin requirements * On her last admit she received Lantus 10 units BID which produced FBSs in the 90's - low 100's. Will continue provider's order for 8 units BID as she is NPO and FBS 100-140 acceptable. Patient did not receive her AM dose of Lantus today. * Prandial and correctional insulin doses are also fairly small. Will base insulin doses on daily need of ~35-45 units/day. 06/17/17 * BSGs have ranged 90-139 over the last 24 hours * Fasting BSG 90-98 this AM w/ 16 units Lantus on board * Patient has EGD planned today, advised RN to hold AM Lantus until pt is ordered a diet post-procedure * CF and CR have performed well PLAN FOR INPATIENT GLYCEMIC CONTROL: * Continuing Lantus 8 units SQ BID; hold this AM's dose until after diet resumed * Contining correction factor of 35 mg/dl/unit * Continuing carb ratio of 1 unit per 11 grams CHO consumed * Continuing goal range of Low 120 mg/dL - High 160 mg/dL to allow for some buffer against hypoglycemia. * Please note that the plan above was derived based on current level of insulin resistance and hospital stress. These recommendations are appropriate for inpatient admission only. Plan of care upon discharge will need to be reassessed to avoid potential outpatient hypo/hyperglycemia. Thank you.
--- NOTE | 2017-06-17 10:44 | Nephrology Progress Note ---
Nephrology Progress Note Date of Service: Jun 17, 2017. Subjective Patient is a 72 year old female with ESRD admitted for GI bleed. patient for endoscopy procedure today. She has been NPO but states that she isn't that hungry. she states "I should have known it was my blood". She reports noticing her weakness in legs and arms for days preceeding and her darkened stool. today she states that she feels much better. given 2 units of blood. tolerated dialysis yesterday. no chest pain. breathing ok on O2. Objective Date Time Temp Pulse Resp B/P (MAP) Pulse Ox O2 Delivery O2 Flow Rate FiO2 06/17/17 08:00 Nasal Cannula 3.0 06/17/17 07:21 36.7 62 18 136/64 (88) 100 Nasal Cannula 3.0 06/17/17 04:03 36.8 65 18 143/62 (89) 100 Nasal Cannula 65 131/66 (87) Humidified Oxygen 66 136/64 (88) 06/17/17 04:00 Nasal Cannula 3.0 06/17/17 00:01 Nasal Cannula 3.0 06/16/17 23:55 37.0 64 18 134/57 (82) 100 Nasal Cannula 3.0 Humidified Oxygen 06/16/17 20:00 Nasal Cannula 3.0 06/16/17 19:44 37.0 74 18 148/68 (94) 92 06/16/17 16:11 36.8 69 22 165/62 (96) 94 70 149/75 (99) 75 150/60 (90) 06/16/17 15:30 Nasal Cannula 3.0 06/16/17 14:18 36.6 65 149/72 (97) 06/16/17 14:15 65 152/77 06/16/17 14:00 67 162/76 06/16/17 13:45 66 161/71 06/16/17 13:30 71 164/75 06/16/17 13:15 67 161/76 06/16/17 13:00 65 159/81 06/16/17 12:45 64 160/76 06/16/17 12:30 36.8 66 18 153/75 100 3.0 06/16/17 12:30 66 153/75 06/16/17 12:15 36.8 65 18 158/74 100 3.0 06/16/17 12:15 65 158/74 06/16/17 12:01 36.8 64 18 149/66 100 3.0 06/16/17 12:00 Nasal Cannula 3.0 06/16/17 12:00 64 149/66 06/16/17 11:45 36.6 66 18 151/77 100 3.0 06/16/17 11:45 66 151/77 06/16/17 11:30 67 151/80 06/16/17 11:30 36.6 67 18 151/80 100 3.0 06/16/17 10:43 36.6 69 143/79 (100) Physical Exam: GENERAL: Awake, alert, and oriented x3. Generalized weakness. Pale EYES: No scleral icterus. ENT: Moist mucous membranes. Pale NECK: Supple. PULMONARY: Basilar rales. CARDIAC: 2/6 systolic murmur. ABDOMEN: Bowel sounds positive. Soft and nontender. EXTREMITIES: No clubbing, cyanosis or edema. NEUROLOGICALLY: Nonfocal. DERMATOLOGIC: No rash or ulcers noted. Current Inpatient Medications Medications (Trade) Dose Ordered Sig/Joan Route Start Time Stop Time Status Last Admin Dose Admin Pantoprazole Sodium 40 mg/ Dextrose 100 ml @ 20 mls/hr Q5H IV 06/16/17 08:15 07/16/17 08:14 06/17/17 09:29 20 MLS/HR Acetaminophen (Tylenol Tab) 650 mg Q4H PRN PO 06/16/17 09:45 07/16/17 09:44 Ondansetron HCl (Zofran Inj) 4 mg Q6H PRN IV 06/16/17 09:45 07/16/17 09:44 Insulin Aspart (novoLOG ASPART) SLIDING SCALE If C... ACHS SC 06/16/17 11:00 07/16/17 10:59 06/16/17 17:12 4 UNITS Glucose (Glucose 40% Gel) 15-30 GRAMS 15 GRAMS... UD PRN PO 06/16/17 09:45 07/16/17 09:44 Glucose (Glucose Chew Tab) 4-8 Tablets 4 Tabl... UD PRN PO 06/16/17 09:45 07/16/17 09:44 Dextrose (Dextrose 50% 50ML Syringe) 25-50ML OF 50% DW IV FOR... UD PRN IV 06/16/17 09:45 07/16/17 09:44 Glucagon (Glucagon Inj) 1 mg UD PRN SQ 06/16/17 09:45 07/16/17 09:44 Miscellaneous Information (Consult Glycemic Management Pharmacy) 1 ea UD PRN N/A 06/16/17 09:43 07/16/17 09:42 Albuterol (Ventolin Hfa Inhaler) 2 puffs Q4 PRN INH 06/16/17 10:00 07/16/17 09:59 Calcium Acetate (Phoslo Cap) 1,334 mg TIDM PO 06/16/17 11:30 07/16/17 11:29 06/16/17 16:54 1,334 MG Clonidine HCl (Catapres Tab) 0.1 mg BID PO 06/16/17 21:00 07/16/17 20:59 06/17/17 09:27 0.1 MG Diltiazem HCl (Cardizem Cd Cap) 120 mg QAM PO 06/17/17 09:00 07/17/17 08:59 06/17/17 09:28 120 MG Salmeterol Xinafoate/ Fluticasone (Advair Diskus 250/50 Inh) 2 puff BID INH 06/16/17 21:00 07/16/17 20:59 06/17/17 09:26 2 PUFF Albuterol/ Ipratropium (Duoneb) 3 ml QID PRN INH 06/16/17 10:00 07/16/17 09:59 Lidocaine/ Prilocaine (Emla 2.5% Crm) 1 ea UD PRN EXT 06/16/17 10:00 07/16/17 09:59 06/16/17 11:48 1 EA Prednisolone Acetate (Pred Forte 1% Oph Susp) 1 drops DAILY OPL 06/17/17 09:00 07/17/17 08:59 06/17/17 09:29 1 DROPS Valacyclovir HCl (Valtrex Tab) 1,000 mg Q24H PO 06/17/17 16:00 07/17/17 15:59 Vitamin B Complex/ Vit C/Folic Acid (Nephrocaps) 1 cap DAILY PO 06/17/17 09:00 07/17/17 08:59 06/17/17 09:27 1 CAP Miscellaneous Information (Order Awaiting Action) 1 ea QS N/A 06/16/17 16:00 07/16/17 15:59 Insulin Glargine (Lantus Solostar Pen) 8 units BID SC 06/16/17 21:00 07/16/17 20:59 06/16/17 21:08 8 UNITS Polyethylene (Miralax Powder Packet) 17 gm DAILY PO 06/18/17 09:00 07/16/17 09:44 Last 24 Hours Test 06/16/17 11:38 06/16/17 16:27 06/16/17 17:24 06/16/17 20:32 Bedside Glucose 139 mg/dl 120 mg/dl 129 mg/dl Hemoglobin 7.1 g/dL Hematocrit 21.4 % Test 06/17/17 05:15 06/17/17 07:10 Hemoglobin 7.6 g/dL Hematocrit 23.2 % Sodium Level 132 mmol/L Potassium Level 3.8 mmol/L Chloride Level 97 mmol/L Carbon Dioxide Level 26 mmol/L Anion Gap 9.0 mmol/L Blood Urea Nitrogen 28 mg/dl Creatinine 5.96 mg/dl Est Creatinine Clear Calc Drug Dose 10.0 ml/min Estimated GFR () 7.6 Estimated GFR (Non- 6.6 BUN/Creatinine Ratio 4.6 Random Glucose 98 mg/dl Estimated Average Glucose 100 mg/dl Hemoglobin A1c 5.1 % Calcium Level 8.5 mg/dl Phosphorus Level 3.4 mg/dl Magnesium Level 1.9 mg/dl Bedside Glucose 90 mg/dl Assessment & Plan ESRD: patient tolerated dialysis ok yesterday. plan to undergo dialysis again tomorrow or as clinical condition dictates. patient's volume status appropriate. potassium 3.8. per patient to receive more blood products today and will run on 2k bath to help prevent hyperkalemia. will do low UF to help prevent volume overload. anemia: hgb improved at 7.6. per patient to receive more units post EGD. will continue to give procrit with dialysis with hgb goal of 10-12. This patient was seen and treated with direct collaboration with Dr. Tijerina. Thank you for the opportunity to participate in this patient's care. Appreciate the Consult. ATTENDING NOTE: I performed a history and physical examination of the patient, including specifically on history- pt continues to be tired, on physical exam-decreased at bases, and my impression and plan are ESRD-for dialysis tomorrow with blood. I have discussed the patient's management with Dee Dee Henley PA-C, Please refer to above note for the documented findings and plan of care. Ángel Tijerina DO
[2017-06-17] MEDS ORDERED: MIDAZOLAM HCL 1 MG/ML 2ML VIAL ONE (11:15)
--- NOTE | 2017-06-17 11:15 | Endo History and Physical ---
History & Physical Date of Service: Jun 17, 2017. Chief Complaint: anemia; melena Referring Physician: Dr. Simpson History of Present Illness ESRD on HD; anemia; melena Past Medical History Diabetes, Arthritis, Gastrointestinal Disorder, Reflux, Hypertension, COPD, Kidney Disease Past Surgical History Hx Cardiac Surgery: No Hx Internal Defibrillator: No Hx Pacemaker: No Hx Abdominal Surgery: Yes (HYSTERECTOMY,OOPHORECTOMY,GALL BLADDER,APPENDIX) Hx Post-Op Nausea and Vomiting: No Hx Cancer Surgery: No Hx Thoracic Surgery: No Hx Orthopedic: No Hx Urinary Tract Surgery: No Social History Smoking Status: Former Smoker Smokeless Tobacco Use: Unknown Hx Substance Use: No Hx Alcohol Use: No Allergies Coded Allergies: No Known Allergies (Verified , 06/16/17) Current Medications Reported Home Medications Medications Dose Route/Sig Max Daily Dose Days Date Category Dose Instructions Sarna (Camphor & Menthol) 1 Lot Lot 1 Appln TD PRN 05/14/17 Reported APPLY TO SKIN NEEDED FOR ITCHING Loperamide Hcl 2 Mg Tab 2 Mg PO QID PRN 05/14/17 Reported Coumadin (Warfarin Sod) 7.5 Mg Tab 7.5 Mg PO 4XWK 02/28/17 Reported 1 1/2 TABLET DOSE EVERY TUESDAY/TUESDAY/TUESDAY/TUESDAY. Coumadin (Warfarin Sod) 5 Mg Tab 5 Mg PO 3XWK 02/28/17 Reported TAKE 5 MG EVERY TUESDAY/TUESDAY/TUESDAY. Diltiazem Cd (Diltiazem Hcl Coated Beads) 120 Mg Cap 120 Mg PO QAM 02/28/17 Reported Pred Forte 1% Oph (Prednisolone Acetate (Ophth)) 1 % Neena 1 Drops OPL DAILY 10/26/16 Reported Duoneb (Ipratropium-Albuterol) 3 Ml Nebu 1 Treatment INH QID PRN 10/26/16 Reported Apap (Acetaminophen) 325 Mg Tab 650 Mg PO Q6 PRN 10/26/16 Reported Valtrex (Valacyclovir Hcl) 1 Gm Tab 1,000 Mg PO DAILY 10/26/16 Reported Nephrocaps (Vitamin B Complex/Vit C/Folic Acid) Cap 1 Cap PO DAILY 10/26/16 Reported Phoslo 667 Mg (Calcium Acetate) 667 Mg Cap 2 Cap PO TIDM 10/26/16 Reported Cozaar (Losartan Potassium) 100 Mg Tab 100 Mg PO DAILY 10/26/16 Reported Incruse Ellipta (Umeclidinium [place]) 62.5 Mcg/Inh Inh 1 Puff INH DAILY 10/26/16 Reported Lantus (Insulin Glargine) 100 Unit/Ml Inj 26 Units SC QAM 07/13/16 Reported Furosemide 40 Mg Tab 40 Mg PO DAILY 05/01/16 Reported Edpftymrt-Onvjrvvjvk-Fgsz 2.5-2.5 % (Lidocaine-Prilocaine) 1 Cre Cre 1 Appln TOP UD PRN 05/01/16 Reported APPLY SMALL AMT TO ACCESS SITE 1-2 HOURS BEFORE DIALYSIS. COVER WITH SARAN WRAP Vitamin D 93867 Unit (Ergocalciferol) 50,000 Unit Cap 50,000 Unit PO MONTHLY 05/01/16 Reported 9th Procrit (Epoetin Hakan) 10,000 Units Inj 05/01/16 Reported per dialysis clinic Ventolin Hfa (Albuterol) 200 Puffs/26015 Mcg Aers 2 Puffs INH Q4 PRN 05/01/16 Reported Cyanocobalamin 1,000 Mcg/Ml Inj 1,000 Mcg IM MONTHLY 04/12/16 Reported Oxygen Gas 2.5 Liters NA CONTINOUS 05/15/15 Reported Advair Diskus 250/50 60 Dose (Fluticasone Prop/Salmeterol) 1 Ea Aerp 2 Puff INH BID 05/15/15 Reported Catapres (Clonidine Hcl) 0.1 Mg Tab 0.1 Mg PO BID 05/15/15 Reported Novolog Flexpen (Insulin Aspart) 100 Units/Ml Inj 2-3 Units SQ TIDM 04/01/15 Reported TAKES PER SLIDING SCALE Vital Signs Weight (Kilograms): 93.000 Height (Feet): 5 Height (Inches): 6.00 Date Time Temp Pulse Resp B/P (MAP) Pulse Ox O2 Delivery O2 Flow Rate FiO2 06/17/17 10:50 36.9 59 20 141/64 (89) 100 Nasal Cannula 3 06/17/17 08:00 Nasal Cannula 3.0 06/17/17 07:21 36.7 62 18 136/64 (88) 100 Nasal Cannula 3.0 06/17/17 04:03 36.8 65 18 143/62 (89) 100 Nasal Cannula 65 131/66 (87) Humidified Oxygen 66 136/64 (88) 06/17/17 04:00 Nasal Cannula 3.0 06/17/17 00:01 Nasal Cannula 3.0 06/16/17 23:55 37.0 64 18 134/57 (82) 100 Nasal Cannula 3.0 Humidified Oxygen 06/16/17 20:00 Nasal Cannula 3.0 06/16/17 19:44 37.0 74 18 148/68 (94) 92 06/16/17 16:11 36.8 69 22 165/62 (96) 94 70 149/75 (99) 75 150/60 (90) 06/16/17 15:30 Nasal Cannula 3.0 06/16/17 14:18 36.6 65 149/72 (97) 06/16/17 14:15 65 152/77 06/16/17 14:00 67 162/76 06/16/17 13:45 66 161/71 06/16/17 13:30 71 164/75 06/16/17 13:15 67 161/76 06/16/17 13:00 65 159/81 06/16/17 12:45 64 160/76 06/16/17 12:30 36.8 66 18 153/75 100 3.0 06/16/17 12:30 66 153/75 06/16/17 12:15 36.8 65 18 158/74 100 3.0 06/16/17 12:15 65 158/74 06/16/17 12:01 36.8 64 18 149/66 100 3.0 06/16/17 12:00 Nasal Cannula 3.0 06/16/17 12:00 64 149/66 06/16/17 11:45 36.6 66 18 151/77 100 3.0 06/16/17 11:45 66 151/77 06/16/17 11:30 67 151/80 06/16/17 11:30 36.6 67 18 151/80 100 3.0 Physical Exam General Appearance: WD/WN, no apparent distress Assessment and Plan EGD today
[2017-06-17] MEDS ORDERED: LIDOCAINE HCL 2% 2 ML VIAL (20MG/ML) ONE (11:16)
[2017-06-17] MEDS ORDERED: PROPOFOL IV EMULSION 10 MG/ML 20 ML VIAL IV ONE (11:16)
[2017-06-17] MEDS ORDERED: ONDANSETRON INJ 2 MG/ML 2 ML VIAL ONE (11:16)
--- NOTE | 2017-06-17 11:49 | GI REPORT ---
Procedure Date: 06/17/2017 11:21 AM Procedure: Upper GI endoscopy Indications: Acute post hemorrhagic anemia, Melena Medicines: Propofol per Anesthesia Complications: No immediate complications. Estimated blood loss: None. Estimated Blood Loss: Estimated blood loss: none. Procedure: Pre-Anesthesia Assessment: - Prior to the procedure, a History and Physical was performed, and patient medications, allergies and sensitivities were reviewed. The patient's tolerance of previous anesthesia was reviewed. - The risks and benefits of the procedure and the sedation options and risks were discussed with the patient. All questions were answered and informed consent was obtained. - Patient identification and proposed procedure were verified prior to the procedure by the physician and the nurse. The procedure was verified in the pre-procedure area in the procedure room. - Mental Status Examination: alert and oriented. Airway Examination: normal oropharyngeal airway and neck mobility. Respiratory Examination: clear to auscultation. CV Examination: normal. Abdominal Examination: bowel sounds present, abdomen soft and non-tender, no masses or organomegaly noted. - ASA Grade Assessment: IV - A patient with severe systemic disease that is a constant threat to life. After obtaining informed consent, the endoscope was passed under direct vision. Throughout the procedure, the patient's blood pressure, pulse, and oxygen saturations were monitored continuously. The Scope was introduced through the mouth, and advanced to the third part of duodenum. The upper GI endoscopy was accomplished without difficulty. The patient tolerated the procedure well. Findings: The esophagus was normal. The stomach was normal. The examined duodenum was normal. Impression: - Normal esophagus. - Normal stomach. - Normal examined duodenum. - No specimens collected. Recommendation: - Return patient to [facility] for ongoing care. Maribel Byers D.O. Maribel Byers, 06/17/2017 11:49:11 AM This report has been signed electronically. Note Initiated On: 06/17/2017 11:21 AM I attest to the content of the Intraoperative Record and orders documented therein, exceptions below
--- NOTE | 2017-06-17 12:05 | Anesthesiology Progress Note ---
Anesthesia Post Op Note Date & Time Jun 17, 2017 at 12:04 Vital Signs Pain Intensity: 0.0 Vital Signs Past 12 Hours Date Time Temp Pulse Resp B/P (MAP) Pulse Ox O2 Delivery O2 Flow Rate FiO2 06/17/17 12:01 59 20 138/58 (84) 100 Nasal Cannula 2 06/17/17 11:46 60 20 119/68 (85) 100 Nasal Cannula 2 06/17/17 10:50 36.9 59 20 141/64 (89) 100 Nasal Cannula 3 06/17/17 08:00 Nasal Cannula 3.0 06/17/17 07:21 36.7 62 18 136/64 (88) 100 Nasal Cannula 3.0 06/17/17 04:03 36.8 65 18 143/62 (89) 100 Nasal Cannula 65 131/66 (87) Humidified Oxygen 66 136/64 (88) 06/17/17 04:00 Nasal Cannula 3.0 Notes Mental Status: alert / awake / arousable, participated in evaluation Pt Amnestic to Procedure: Yes Nausea / Vomiting: adequately controlled Pain: adequately controlled Airway Patency, RR, SpO2: stable & adequate BP & HR: stable & adequate Hydration State: stable & adequate Anesthetic Complications: no major complications apparent
[2017-06-17] MEDS: INSULIN GLARGINE SOLOSTAR 100 UNITS/ML 3 ML PEN SC SCH (12:52)
[2017-06-17] MEDS ORDERED: POLYETHYLENE (MIRALAX) 17 GM PACK ONE (12:52)
--- NOTE | 2017-06-17 16:58 | Progress Note ---
Medicine Progress Note Date & Time of Visit: Jun 17, 2017 at 14:38. Subjective 72-year-old female presents with black tarry stools and severe anemia. Overnight she did well without issues or symptoms. She underwent EGD today that was normal. She denies any further black tarry stools but reports 4 episodes of loose stool after eating creamy soup and some milk. She was advised to stay away from dairy to help resolve her loose stool. She denies any abdominal pain. She has remained hemodynamically stable overnight. Objective Last 8 Hrs Date Time Temp Pulse Resp B/P (MAP) Pulse Ox O2 Delivery O2 Flow Rate FiO2 06/17/17 13:44 63 100 06/17/17 12:43 37.1 60 16 121/49 (73) 98 Nasal Cannula 3.0 06/17/17 12:16 59 20 138/59 (85) 100 Nasal Cannula 2 06/17/17 12:01 59 20 138/58 (84) 100 Nasal Cannula 2 06/17/17 11:46 60 20 119/68 (85) 100 Nasal Cannula 2 06/17/17 10:50 36.9 59 20 141/64 (89) 100 Nasal Cannula 3 06/17/17 08:00 Nasal Cannula 3.0 06/17/17 07:21 36.7 62 18 136/64 (88) 100 Nasal Cannula 3.0 Physical Exam: GEN: Obese, in no acute distress, alert and appropriate HEENT: NC/AT, normal sclerae CARDIO: reg rate, S1/2 heard without m/g/r LUNGS: CTA bilaterally, no crackles, rales or wheezes, good diaphragmatic excursion ABD: soft, non-tender, non-distended, no rebound or guarding, +BS EXTREMITY: RP and DP palpable 2+ bilat, no LE swelling or edema, extremities are warm and well-perfused LUE: Palpable thrill over fistula NEURO: CN 2-12 grossly intact, no gross focal deficits MUSC: Moves all extremities equally SKIN: warm and dry Laboratory Results: 06/16/17 07:20 Red Blood Count 1.53, Mean Corpuscular Volume 119.6, Mean Corpuscular Hemoglobin 37.9, Mean Corpuscular Hemoglobin Concent 31.7, Mean Platelet Volume 9.2, Neutrophils (%) (Auto) 74.7, Lymphocytes (%) (Auto) 14.7, Monocytes (%) ( Auto) 7.8, Eosinophils (%) (Auto) 1.8, Basophils (%) (Auto) 0.5, Neutrophils # ( Auto) 4.48, Lymphocytes # (Auto) 0.88, Monocytes # (Auto) 0.47, Eosinophils # ( Auto) 0.11, Basophils # (Auto) 0.03 06/17/17 05:15 06/17/17 05:15 Test 06/16/17 07:20 06/16/17 07:24 06/17/17 05:15 06/17/17 15:33 White Blood Count 6.00 K/uL (4.8-10.8) Red Blood Count 1.53 M/uL (4.2-5.4) Hemoglobin 5.8 g/dL (12.0-16.0) Hematocrit 18.3 % (37-47) Mean Corpuscular Volume 119.6 fL (80-100) Mean Corpuscular Hemoglobin 37.9 pg (25-34) Mean Corpuscular Hemoglobin Concent 31.7 g/dl (32-36) Platelet Count 247 K/uL (130-400) Mean Platelet Volume 9.2 fL (7.4-10.4) Neutrophils (%) (Auto) 74.7 % Lymphocytes (%) (Auto) 14.7 % Monocytes (%) (Auto) 7.8 % Eosinophils (%) (Auto) 1.8 % Basophils (%) (Auto) 0.5 % Neutrophils # (Auto) 4.48 K/uL (1.4-6.5) Lymphocytes # (Auto) 0.88 K/uL (1.2-3.4) Monocytes # (Auto) 0.47 K/uL (0.11-0.59) Eosinophils # (Auto) 0.11 K/uL (0-0.5) Basophils # (Auto) 0.03 K/uL (0-0.2) RDW Standard Deviation 88.5 fL (36.4-46.3) RDW Coefficient of Variation 21.4 % (11.5-14.5) Immature Granulocyte % (Auto) 0.5 % Immature Granulocyte # (Auto) 0.03 K/uL (0.00-0.02) Nucleated RBC Absolute Count (auto) 0.02 K/uL (0-0) Nucleated Red Blood Cells % 0.3 % Polychromasia 1+ Anisocytosis PRESENT Macrocytosis PRESENT Prothrombin Time 19.7 SECONDS (9.0-12.0) Prothromb Time International Ratio 1.9 (0.9-1.1) Activated Partial Thromboplast Time 32.4 SECONDS (21.0-31.0) Partial Thromboplastin Ratio 1.2 Total Bilirubin 0.4 mg/dl (0.2-1) Aspartate Amino Transf (AST/SGOT) 18 U/L (15-37) Alanine Aminotransferase (ALT/SGPT) 29 U/L (12-78) Alkaline Phosphatase 89 U/L (45-117) Troponin I < 0.015 ng/ml (0-0.045) Total Protein 6.5 gm/dl (6.4-8.2) Albumin 3.1 gm/dl (3.4-5.0) Globulin 3.4 gm/dl (2.5-4.0) Albumin/Globulin Ratio 0.9 (0.9-2) Bedside Hemoglobin 5.4 g/dl (12.0-16.0) Bedside Hematocrit 16 % (37-47) Bedside Sodium 139 mEq/L (135-144) Bedside Potassium 4.0 mEq/L (3.3-5.0) Bedside Chloride 97 mEq/L (101-112) Bedside Total CO2 29 mEq/l (24-31) Bedside Blood Urea Nitrogen 61 mg/dl (7-18) Bedside Creatinine 9.2 mg/dl (0.6-1.3) Bedside Glucose (other) 186 mg/dl (70-99) Bedside Ionized Calcium (Tyler) 1.08 mmol/l (1.12-1.32) Anion Gap 9.0 mmol/L (3-11) Est Creatinine Clear Calc Drug Dose 10.0 ml/min Estimated GFR () 7.6 Estimated GFR (Non- 6.6 BUN/Creatinine Ratio 4.6 (10-20) Estimated Average Glucose 100 mg/dl Hemoglobin A1c 5.1 % (4.5-5.6) Calcium Level 8.5 mg/dl (8.5-10.1) Phosphorus Level 3.4 mg/dl (2.5-4.9) Magnesium Level 1.9 mg/dl (1.8-2.4) Bedside Glucose 338 mg/dl (70-90) Last 24 Hours Test 06/16/17 16:27 06/16/17 17:24 06/16/17 20:32 06/17/17 05:15 Bedside Glucose 120 mg/dl 129 mg/dl Hemoglobin 7.1 g/dL 7.6 g/dL Hematocrit 21.4 % 23.2 % Sodium Level 132 mmol/L Potassium Level 3.8 mmol/L Chloride Level 97 mmol/L Carbon Dioxide Level 26 mmol/L Anion Gap 9.0 mmol/L Blood Urea Nitrogen 28 mg/dl Creatinine 5.96 mg/dl Est Creatinine Clear Calc Drug Dose 10.0 ml/min Estimated GFR () 7.6 Estimated GFR (Non- 6.6 BUN/Creatinine Ratio 4.6 Random Glucose 98 mg/dl Estimated Average Glucose 100 mg/dl Hemoglobin A1c 5.1 % Calcium Level 8.5 mg/dl Phosphorus Level 3.4 mg/dl Magnesium Level 1.9 mg/dl Test 06/17/17 07:10 06/17/17 12:46 Bedside Glucose 90 mg/dl 113 mg/dl Assessment & Plan 72-year-old female presents with black tarry stools and severe anemia. Overnight she did well without issues or symptoms. She underwent EGD today that was normal. She denies any further black tarry stools but reports 4 episodes of loose stool after eating creamy soup and some milk. She was advised to stay away from dairy to help resolve her loose stool. She denies any abdominal pain. She has remained hemodynamically stable overnight. 1. Anemia-likely secondary to acute GI bleed in the setting of known CKD on Procrit. EGD was normal today. Protonix drip was switched to Protonix twice daily. Continue to hold diuretics and blood pressure meds as well as warfarin. Plan to give 2 units of packed red blood cells during dialysis tomorrow. If she decompensates overnight will give her blood overnight. Tentative GI plan is for outpatient colonoscopy. 2. Chronic hypoxic respiratory failure secondary to COPD-stable and at baseline hypoxia with 3 leave liters supplementation per home regimen. 3. ESRD on hemodialysis-nephrology aware of need for dialysis and consulted for this as inpatient. Plan for dialysis tomorrow 4. Diabetes type 2-pharmacy consult placed, insulin sliding scale with carb coverage for now. She was n.p.o. preoperatively and Lantus was held. Postoperative sugar is over 300, pharmacist is aware and adjusting insulin. 5. Paroxysmal atrial fibrillation-continue diltiazem, hold Coumadin. 6. Chronic diastolic heart failure-compensated. Continue to hold diuretics. 7. Recent HCAP-patient was discharged 1 month ago after treatment for pneumonia. Patient denies any symptoms of coughing or fevers at this time. Repeat chest x-ray reveals residual right base infiltrate. Radiologic studies tend to lag behind clinical picture. Would repeat chest x-ray as outpatient or if symptoms presented. DVT prophylaxis-SCDs, chemoprophylaxis contraindicated in setting of bleed. Full code Disposition-moved to [facility] Laverne Simpson DO [facility] hospitalist Consultants: [facility] Current Inpatient Medications: Current Inpatient Medications Medications (Trade) Dose Ordered Sig/Joan Route Start Time Stop Time Status Last Admin Dose Admin Acetaminophen (Tylenol Tab) 650 mg Q4H PRN PO 06/16/17 09:45 07/16/17 09:44 Ondansetron HCl (Zofran Inj) 4 mg Q6H PRN IV 06/16/17 09:45 07/16/17 09:44 Insulin Aspart (novoLOG ASPART) SLIDING SCALE If C... ACHS SC 06/16/17 11:00 07/16/17 10:59 06/16/17 17:12 4 UNITS Glucose (Glucose 40% Gel) 15-30 GRAMS 15 GRAMS... UD PRN PO 06/16/17 09:45 07/16/17 09:44 Glucose (Glucose Chew Tab) 4-8 Tablets 4 Tabl... UD PRN PO 06/16/17 09:45 07/16/17 09:44 Dextrose (Dextrose 50% 50ML Syringe) 25-50ML OF 50% DW IV FOR... UD PRN IV 06/16/17 09:45 07/16/17 09:44 Glucagon (Glucagon Inj) 1 mg UD PRN SQ 06/16/17 09:45 07/16/17 09:44 Miscellaneous Information (Consult Glycemic Management Pharmacy) 1 ea UD PRN N/A 06/16/17 09:43 07/16/17 09:42 Albuterol (Ventolin Hfa Inhaler) 2 puffs Q4 PRN INH 06/16/17 10:00 07/16/17 09:59 Calcium Acetate (Phoslo Cap) 1,334 mg TIDM PO 06/16/17 11:30 07/16/17 11:29 06/17/17 12:55 1,334 MG Clonidine HCl (Catapres Tab) 0.1 mg BID PO 06/16/17 21:00 07/16/17 20:59 06/17/17 09:27 0.1 MG Diltiazem HCl (Cardizem Cd Cap) 120 mg QAM PO 06/17/17 09:00 07/17/17 08:59 06/17/17 09:28 120 MG Salmeterol Xinafoate/ Fluticasone (Advair Diskus 250/50 Inh) 2 puff BID INH 06/16/17 21:00 07/16/17 20:59 06/17/17 09:26 2 PUFF Albuterol/ Ipratropium (Duoneb) 3 ml QID PRN INH 06/16/17 10:00 07/16/17 09:59 Lidocaine/ Prilocaine (Emla 2.5% Crm) 1 ea UD PRN EXT 06/16/17 10:00 07/16/17 09:59 06/16/17 11:48 1 EA Prednisolone Acetate (Pred Forte 1% Oph Susp) 1 drops DAILY OPL 06/17/17 09:00 07/17/17 08:59 06/17/17 09:29 1 DROPS Valacyclovir HCl (Valtrex Tab) 1,000 mg Q24H PO 06/17/17 16:00 07/17/17 15:59 Vitamin B Complex/ Vit C/Folic Acid (Nephrocaps) 1 cap DAILY PO 06/17/17 09:00 07/17/17 08:59 06/17/17 09:27 1 CAP Miscellaneous Information (Order Awaiting Action) 1 ea QS N/A 06/16/17 16:00 07/16/17 15:59 Insulin Glargine (Lantus Solostar Pen) 8 units BID SC 06/16/17 21:00 07/16/17 20:59 06/17/17 12:52 8 UNITS Polyethylene (Miralax Powder Packet) 17 gm DAILY PO 06/18/17 09:00 07/16/17 09:44 Epoetin Hakan (Procrit Inj) 10,000 units TODAY@0400 IV. 06/18/17 04:00 06/18/17 18:00 Pantoprazole Sodium (Protonix Tab) 40 mg BID PO 06/17/17 21:00 07/17/17 20:59
[2017-06-17] MEDS ORDERED: INSULIN GLARGINE SOLOSTAR 100 UNITS/ML 3 ML PEN SC ONE ×2 (17:00)
[2017-06-17 17:21] LABS: HEMATOCRIT 24.6 % (37-47); HEMOGLOBIN 7.8 g/dL (12.0-16.0)
[2017-06-17] MEDS: PANTOprazole SOD 40 MG TAB PO SCH (20:48)
[2017-06-18] VITALS (19 sets, daily range): BP systolic 143–171; BP diastolic 64–81; PULSE 55–64; TEMP 36.6–36.9; O2SAT 100
[2017-06-18] MEDS ORDERED: INSULIN ASPART 100 UNITS/ML 3 ML PEN SC SCH (02:00)
[2017-06-18] MEDS ORDERED: EPOETIN ALFA 10,000 UNITS/ML VIAL IV. SCH (04:00)
[2017-06-18 06:49] LABS: BASO % 0.4 %; BASO ABS # 0.02 K/uL (0-0.2); EOS % 1.6 %; EOS ABS # 0.07 K/uL (0-0.5); HEMOGLOBIN 7.3 g/dL (12.0-16.0); IG# 0.02 K/uL (0.00-0.02); LYMPH % 12.7 %; LYMPH ABS # 0.57 K/uL (1.2-3.4); MEAN CELL VOLUME 104.8 fL (80-100); MEAN CORPUSCULAR HEMOGLOBIN 34.8 pg (25-34); MEAN CORPUSCULAR HGB CONC 33.2 g/dl (32-36); MEAN PLATELET VOLUME 8.9 fL (7.4-10.4); MONO % 8.7 %; MONO ABS # 0.39 K/uL (0.11-0.59); NEUT % 76.2 %; NEUT ABS # 3.43 K/uL (1.4-6.5); PLATELET COUNT 155 K/uL (130-400); RED CELL DISTRIBUTION WIDTH CV 24.7 % (11.5-14.5)
[2017-06-18 07:44] LABS: CALCIUM 8.3 mg/dl (8.5-10.1); CREATININE 8.17 mg/dl (0.60-1.20); PHOSPHORUS 4.9 mg/dl (2.5-4.9); POTASSIUM 4.2 mmol/L (3.5-5.1)
[2017-06-18] MEDS ORDERED: INSULIN GLARGINE SOLOSTAR 100 UNITS/ML 3 ML PEN SC SCH (08:00)
[2017-06-18] MEDS ORDERED: POLYETHYLENE (MIRALAX) 17 GM PACK PO SCH (08:00)
[2017-06-18] MEDS ORDERED: ACETAMINOPHEN 325 MG TAB PO ONE (08:00)
[2017-06-18] MEDS: PrednisoLONE ACET 1% OP SUSP 5 ML BTL OPL SCH (08:13)
[2017-06-18] MEDS: FLUTICASONE/SALMETEROL 250/50 (ADVAIR) 14 PUFF/1 INHALER INH SCH (08:13)
[2017-06-18] MEDS: PANTOprazole SOD 40 MG TAB PO SCH (08:15)
[2017-06-18] MEDS: CALCIUM ACETATE 667MG GELCAP PO SCH ×2 (08:15→12:58)
[2017-06-18] MEDS: NEPHROCAPS PO SCH (08:15)
[2017-06-18] MEDS: INSULIN ASPART 100 UNITS/ML 3 ML PEN SC SCH ×2 (08:20→11:00)
--- NOTE | 2017-06-18 10:43 | Pharmacy Progress Note ---
Pharmacy Glycemic Short Note 2 Date of Service Jun 18, 2017. OUTPATIENT ANTIDIABETIC REGIMEN: * Lantus 26 units SQ Q AM * Novolog 2-3 units w/ meals * A1c = 5.1 % 06/17/17 (interpret w/ caution due to ESRD) Test 06/18/17 07:53 POC Glucose 107 mg/dl (70-90) ASSESSMENT: 06/18/17 * Patient received 30 units of insulin yesterday, BSGs ranging from 80-338 mg/ dL in past 24 hours * Changes to causes of insulin resistance: * Protonix drip mixed in dextrose has been d/c'd * Diet has been resumed * Additional Lantus was given yesterday and also increased starting this AM * Fasting BSG today is WNL * No changes made today but will need to make sure fasting does not fall further 06/17/17 * BSGs have ranged 90-139 over the last 24 hours * Fasting BSG 90-98 this AM w/ 16 units Lantus on board * Patient has EGD planned today, advised RN to hold AM Lantus until pt is ordered a diet post-procedure * CF and CR have performed well PLAN FOR INPATIENT GLYCEMIC CONTROL: * Basal insulin - no change * Lantus 20 units SQ qAM * Bolus insulin * NovoLog per scale ACHS or Q6hrs while NPO * Goal Range: Low 120 mg/dL - High 160 mg/dL * Correction Factor: 35 mg/dL/unit * Nutritional / Prandial insulin per carb ratio of 1 unit per 11 grams CHO consumed PLAN FOR DISCHARGE: * As long as patient not having hypoglycemia, okay to resume outpatient regimen on discharge
--- NOTE | 2017-06-18 12:27 | Discharge Instructions ---
Discharge Instructions Date of Service Jun 18, 2017. Admission Reason for Admission: Gi Bleed Discharge Discharge Diagnosis / Problem: Gi Bleed, Anemia Discharge Goals Goal(s): Decrease discomfort Activity Recommendations Activity Limitations: resume your previous activity . Instructions / Follow-Up Instructions / Follow-Up FOLLOWUP WITH FAMILY DOCTOR ON May AT 12:45PM LAB: CBC IN 4-5 DAYS AND FOLLOW RESULTS WITH FAMILY DOCTOR. FOLLOWUP WITH GI FOR COLONOSCOPY. RESUME COUMADIN FROM TOMORROW AND FOLLOW WITH COUMADIN CLINIC FOR COUMADIN DOSING. LAB: PT/INR IN 3-5 DAYS AND FOLLOW RESULTS WITH COUMADIN CLINIC. Current Hospital Diet Patient's current hospital diet: Renal Diet, Diabetes Type 2 Diet Discharge Diet Recommended Diet: Diabetes Type 2 Diet, Renal Diet Procedures Procedures Performed: EGD Pending Studies Studies pending at discharge: no Laboratory Results Hemoglobin A1c Test 06/17/17 05:15 Range/Units Estimated Average Glucose 100 mg/dl Hemoglobin A1c 5.1 4.5-5.6 % Medical Emergencies . Who to Call and When: Medical Emergencies: If at any time you feel your situation is an emergency, please call 911 immediately. . Non-Emergent Contact Non-Emergency issues call your: Primary Care Provider . . "Provider Documentation" section prepared by Cameron Thakur. .
[2017-06-18] MEDS: CLONIDINE HCL 0.1 MG TAB PO SCH (12:56)
[2017-06-18] MEDS: DILTIAZEM HCL 120 MG CAPCR PO SCH (12:56)
--- NOTE | 2017-06-18 15:40 | Dialysis Progress Note ---
Nephrology Dialysis Note Date of Service: Jun 18, 2017. Subjective seen on dialysis at about 0900; no c/o pain or worsened chronic dyspnea; no further bleeding; for 2 units pRBC on HD today Objective Date Time Temp Pulse Resp B/P (MAP) Pulse Ox O2 Delivery O2 Flow Rate FiO2 06/18/17 13:10 36.7 57 16 100 Nasal Cannula 06/18/17 12:45 36.7 58 166/75 (105) 06/18/17 12:15 57 164/76 06/18/17 12:00 57 166/80 06/18/17 11:45 60 157/74 06/18/17 11:30 58 171/80 06/18/17 11:15 60 162/81 06/18/17 11:00 58 157/78 06/18/17 10:45 58 154/75 06/18/17 10:37 36.7 58 16 156/76 06/18/17 10:30 58 156/76 06/18/17 10:15 58 159/76 06/18/17 10:00 57 152/73 06/18/17 09:45 58 145/74 06/18/17 09:30 55 150/71 06/18/17 09:26 57 150/71 06/18/17 09:19 36.9 59 143/69 (93) 06/18/17 07:45 36.6 58 20 148/69 (95) 100 3.0 59 144/68 (93) 64 146/64 (91) 06/18/17 00:00 100 Nasal Cannula 3.0 06/17/17 23:18 36.7 64 18 146/58 (87) 99 Nasal Cannula 4.0 157/62 (93) 158/62 (94) 06/17/17 19:20 36.7 62 18 168/72 (104) 100 Nasal Cannula 3.0 06/17/17 16:00 Nasal Cannula 3.0 06/17/17 16:00 37.0 60 18 133/58 (83) 100 Nasal Cannula 3.0 Physical Exam: General-on 02NC, nad, oriented x3 Eyes-eomi ENT-dry MM Neck-supple Lungs-diminished on ant exam Heart-RRR Abdomen-soft NT +BS Extremities-no edema; av access w/ + t/b Neuro-louie, fluent speech Last 24 Hours Test 06/17/17 15:33 06/17/17 17:04 06/17/17 20:42 06/18/17 02:15 Bedside Glucose 338 mg/dl 80 mg/dl 131 mg/dl Hemoglobin 7.8 g/dL Hematocrit 24.6 % Test 06/18/17 06:30 06/18/17 07:53 06/18/17 12:53 White Blood Count 4.50 K/uL Red Blood Count 2.10 M/uL Hemoglobin 7.3 g/dL Hematocrit 22.0 % Mean Corpuscular Volume 104.8 fL Mean Corpuscular Hemoglobin 34.8 pg Mean Corpuscular Hemoglobin Concent 33.2 g/dl Platelet Count 155 K/uL Mean Platelet Volume 8.9 fL Neutrophils (%) (Auto) 76.2 % Lymphocytes (%) (Auto) 12.7 % Monocytes (%) (Auto) 8.7 % Eosinophils (%) (Auto) 1.6 % Basophils (%) (Auto) 0.4 % Neutrophils # (Auto) 3.43 K/uL Lymphocytes # (Auto) 0.57 K/uL Monocytes # (Auto) 0.39 K/uL Eosinophils # (Auto) 0.07 K/uL Basophils # (Auto) 0.02 K/uL RDW Standard Deviation 90.0 fL RDW Coefficient of Variation 24.7 % Immature Granulocyte % (Auto) 0.4 % Immature Granulocyte # (Auto) 0.02 K/uL Hypersegmented Polys 1+ Anisocytosis PRESENT Macrocytosis PRESENT Prothrombin Time 10.9 SECONDS Prothromb Time International Ratio 1.0 Sodium Level 131 mmol/L Potassium Level 4.2 mmol/L Chloride Level 95 mmol/L Carbon Dioxide Level 23 mmol/L Anion Gap 13.0 mmol/L Blood Urea Nitrogen 38 mg/dl Creatinine 8.17 mg/dl Est Creatinine Clear Calc Drug Dose 7.4 ml/min Estimated GFR () 5.2 Estimated GFR (Non- 4.5 BUN/Creatinine Ratio 4.7 Random Glucose 106 mg/dl Calcium Level 8.3 mg/dl Phosphorus Level 4.9 mg/dl Magnesium Level 2.0 mg/dl Bedside Glucose 107 mg/dl 93 mg/dl Assessment & Plan 72 year old female with ESRD admitted for GI bleed. patient for endoscopy procedure today. She has been NPO but states that she isn't that hungry. she states "I should have known it was my blood". She reports noticing her weakness in legs and arms for days preceeding and her darkened stool. esrd-hd trsat > including today; no heparin anemia of chronic disease > for outpt colonoscopy; will arrange to have hgb checked weekly at HD and for no heparin w/ HD after d/c until bleeding concerns stabilize appreciate consult; care coordinated w/ dr epstein
--- NOTE | 2017-06-18 18:30 | Progress Note ---
Internal Med Progress Note Date of Service: Jun 18, 2017. Provider Documentation: SUBJECTIVE: getting dialysis denies any chest pain or sob no nausea no blood in stool afebrile wants to be discharged OBJECTIVE: Vital Signs-as noted below Exam: General-alert and oriented. Not in distress ENT-Normal hearing Neck-no neck masses Lungs-cta b/l no wheezing or crackles Heart-S 1 and s2 heard regular no murmurs Abdomen-soft bowel sounds present non tender no distension Extremities-no edema no erythema Neuro-alert and awake moves extremities Lab data as noted below. ASSESSMENT & PLAN: 72-year-old female presents with black tarry stools and severe anemia. 1. Anemia-likely secondary to acute GI bleed in the setting of known CKD on Procrit. EGD was normal. Protonix drip stopped and started on ppi bid.. Gi plans for colonoscopy as out patient received 2units prbc today with dialysis patient does not want to stay and wants to go home. No obvious bleeding currently. Advised to start Coumadin from tomorrow. f/u labs closely with pcp followup with alonso for colonoscopy. 2. Chronic hypoxic respiratory failure secondary to COPD-stable . 3. ESRD on hemodialysis-Had dialysis today 4. Diabetes type 2-d/c on home meds 5. Paroxysmal atrial fibrillation-continue diltiazem, restart Coumadin from tomorrow. f/u with Coumadin clinic. 6. Chronic diastolic heart failure-compensated. 7. Recent HCAP- Repeat chest x-ray reveals residual right base infiltrate.f/u with pcp. discharged home Vital Signs: Date Time Temp Pulse Resp B/P (MAP) Pulse Ox O2 Delivery O2 Flow Rate FiO2 06/18/17 13:10 36.7 57 16 100 Nasal Cannula 06/18/17 12:45 36.7 58 166/75 (105) 06/18/17 12:15 57 164/76 06/18/17 12:00 57 166/80 06/18/17 11:45 60 157/74 06/18/17 11:30 58 171/80 06/18/17 11:15 60 162/81 06/18/17 11:00 58 157/78 06/18/17 10:45 58 154/75 06/18/17 10:37 36.7 58 16 156/76 06/18/17 10:30 58 156/76 06/18/17 10:15 58 159/76 06/18/17 10:00 57 152/73 06/18/17 09:45 58 145/74 06/18/17 09:30 55 150/71 06/18/17 09:26 57 150/71 06/18/17 09:19 36.9 59 143/69 (93) 06/18/17 07:45 36.6 58 20 148/69 (95) 100 3.0 59 144/68 (93) 64 146/64 (91) 06/18/17 00:00 100 Nasal Cannula 3.0 06/17/17 23:18 36.7 64 18 146/58 (87) 99 Nasal Cannula 4.0 157/62 (93) 158/62 (94) 06/17/17 19:20 36.7 62 18 168/72 (104) 100 Nasal Cannula 3.0 Lab Results: Results Past 24 Hours Test 06/17/17 20:42 06/18/17 02:15 06/18/17 06:30 06/18/17 07:53 Range/Units Bedside Glucose 80 131 107 70-90 mg/dl White Blood Count 4.50 4.8-10.8 K/uL Red Blood Count 2.10 4.2-5.4 M/uL Hemoglobin 7.3 12.0-16.0 g/dL Hematocrit 22.0 37-47 % Mean Corpuscular Volume 104.8 80-100 fL Mean Corpuscular Hemoglobin 34.8 25-34 pg Mean Corpuscular Hemoglobin Concent 33.2 32-36 g/dl Platelet Count 155 130-400 K/uL Mean Platelet Volume 8.9 7.4-10.4 fL Neutrophils (%) (Auto) 76.2 % Lymphocytes (%) (Auto) 12.7 % Monocytes (%) (Auto) 8.7 % Eosinophils (%) (Auto) 1.6 % Basophils (%) (Auto) 0.4 % Neutrophils # (Auto) 3.43 1.4-6.5 K/uL Lymphocytes # (Auto) 0.57 1.2-3.4 K/uL Monocytes # (Auto) 0.39 0.11-0.59 K/uL Eosinophils # (Auto) 0.07 0-0.5 K/uL Basophils # (Auto) 0.02 0-0.2 K/uL RDW Standard Deviation 90.0 36.4-46.3 fL RDW Coefficient of Variation 24.7 11.5-14.5 % Immature Granulocyte % (Auto) 0.4 % Immature Granulocyte # (Auto) 0.02 0.00-0.02 K/uL Hypersegmented Polys 1+ Anisocytosis PRESENT Macrocytosis PRESENT Prothrombin Time 10.9 9.0-12.0 SECONDS Prothromb Time International Ratio 1.0 0.9-1.1 Sodium Level 131 136-145 mmol/L Potassium Level 4.2 3.5-5.1 mmol/L Chloride Level 95 98-107 mmol/L Carbon Dioxide Level 23 21-32 mmol/L Anion Gap 13.0 3-11 mmol/L Blood Urea Nitrogen 38 7-18 mg/dl Creatinine 8.17 0.60-1.20 mg/dl Est Creatinine Clear Calc Drug Dose 7.4 ml/min Estimated GFR () 5.2 Estimated GFR (Non- 4.5 BUN/Creatinine Ratio 4.7 10-20 Random Glucose 106 70-99 mg/dl Calcium Level 8.3 8.5-10.1 mg/dl Phosphorus Level 4.9 2.5-4.9 mg/dl Magnesium Level 2.0 1.8-2.4 mg/dl Test 06/18/17 12:53 Range/Units Bedside Glucose 93 70-90 mg/dl
--- NOTE | 2017-06-18 18:32 | Discharge Summary ---
Discharge Summary Date of Service Jun 18, 2017. Discharge Summary Admission Date: Jun 16, 2017 at 07:39 Discharge Date: Jun 18, 2017 Discharge Disposition: Home Principal Diagnosis: Gi bleed anemia Secondary Diagnoses/Problems: (1) A-fib Permanent Comment: paroxysmal Status: Chronic (2) Adrenal adenoma Status: Chronic (3) Anemia of chronic disease Status: Chronic (4) AV fistula Status: Chronic (5) CHF (congestive heart failure) Status: Chronic (6) Chronic respiratory failure Status: Chronic (7) Chronic respiratory failure with hypoxia Status: Chronic (8) COPD, moderate Status: Chronic (9) DM type 2 (diabetes mellitus, type 2) Status: Chronic (10) Dyslipidemia Status: Chronic (11) ESRD (end stage renal disease) on dialysis Status: Chronic (12) H/O cardiovascular stress test Permanent Comment: 05/2013 - negative for ischemia Status: Chronic (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 Mild parenchymal infiltrate right base. 2. Mild nonobstructive ileus. Consultations: [facility] [place]-[facility] Medication Reconciliation Continued Medications: Acetaminophen (Apap) 325 Mg Tab 650 MG PO Q6 PRN for Pain Albuterol Hfa (Ventolin Hfa) 200 Puffs/04073 Mcg Aers 2 PUFFS INH Q4 PRN for SOB/Wheezing Calcium Acetate (Phoslo 667 Mg) 667 Mg Cap 2 CAP PO TIDM, CAP Camphor & Menthol (Sarna) 1 Lot Lot 1 APPLN TD PRN APPLY TO SKIN NEEDED FOR ITCHING Clonidine Hcl (Catapres) 0.1 Mg Tab 0.1 MG PO BID, TAB Cyanocobalamin (Cyanocobalamin) 1,000 Mcg/Ml Inj 1000 MCG IM MONTHLY Diltiazem Hcl Coated Beads (Diltiazem Cd) 120 Mg Cap 120 MG PO QAM, CAP Epoetin Hakan (Procrit) 10,000 Units Inj per dialysis clinic Ergocalciferol (Vitamin D 21828 Unit) 50,000 Unit Cap 11362 UNIT PO MONTHLY, CAP 9th Fluticasone Prop/Salmeterol (Advair Diskus 250/50 60 Dose) 1 Ea Aerp 2 PUFF INH BID Furosemide (Furosemide) 40 Mg Tab 40 MG PO DAILY Home O2 Therapy (Oxygen) Gas 2.5 LITERS NA CONTINOUS Insulin Aspart (Novolog Flexpen) 100 Units/Ml Inj 2-3 UNITS SQ TIDM TAKES PER SLIDING SCALE Insulin Glargine (Lantus) 100 Unit/Ml Inj 26 UNITS SC QAM, VIAL Ipratropium-Albuterol (Duoneb) 3 Ml Nebu 1 TREATMENT INH QID PRN for SOB/Wheezing, INHA Lidocaine-Prilocaine (Hwfecijcb-Imtvaphgtl-Pelh 2.5-2.5 %) 1 Cre Cre 1 APPLN TOP UD PRN for PRIOR TO DIALYSIS APPLY SMALL AMT TO ACCESS SITE 1-2 HOURS BEFORE DIALYSIS. COVER WITH SARAN WRAP Loperamide Hcl (Loperamide Hcl) 2 Mg Tab 2 MG PO QID PRN for Diarrhea Losartan Potassium (Cozaar) 100 Mg Tab 100 MG PO DAILY, TAB Prednisolone Acetate (Ophth) (Pred Forte 1% Oph) 1 % Neena 1 DROPS OPL DAILY, #5 ML Umeclidinium Ucon (Incruse Ellipta) 62.5 Mcg/Inh Inh 1 PUFF INH DAILY Valacyclovir Hcl (Valtrex) 1 Gm Tab 1000 MG PO DAILY, TAB Vitamin B Cmplx/Vitc/Folic Ac (Nephrocaps) Cap 1 CAP PO DAILY, CAP Warfarin Sod (Coumadin) 5 Mg Tab 5 MG PO 3XWK TAKE 5 MG EVERY TUESDAY/TUESDAY/TUESDAY. Warfarin Sod (Coumadin) 7.5 Mg Tab 7.5 MG PO 4XWK 1 1/2 TABLET DOSE EVERY TUESDAY/TUESDAY/TUESDAY/TUESDAY. Admission Information HPI (per Admitting provider): 72-year-old female who presents to the emergency the room via private vehicle reports that the dialysis center called her and told her she needed a blood transfusion for anemia. She stated that her hemoglobin was 6. She denies any nausea vomiting or seeing any bright red blood per rectum. She does admit to weakness over the last 3 days especially in her legs, and she does report black tarry stool for the last 3 days associated with some diarrhea. She denies being on iron supplements. FOBT was positive in the ER. She denies any abdominal pain or lightheadedness. She denies any chest pain. She reports feeling cold for the last 3 days. She has chronic hypoxia and is on 3 L of oxygen via nasal cannula at baseline, and reports some increased shortness of breath over the last 3 days. She reports becoming more fatigued while peeling potatoes which was new for her. She denies any recent weight gain. She was due for hemodialysis today and nephrology is aware. She has a history of atrial fibrillation and is on Coumadin she denies a history of GI bleed in the past. Last colonoscopy was April 2015 revealing tubular adenoma and hyperplastic polyps. Last upper endoscopy was January 2016 revealing gastritis and a positive H. pylori on biopsy. The patient has a history of pancreatic cysts. On arrival to the ER blood pressure was 151/63 pulse was 72 she was afebrile and oxygenating 94% on room air. On physical exam she was in no acute distress, she appears pale, there were no signs of cyanosis, lung and heart exam were normal, there was no evidence of edema. Rectal exam was unremarkable with no evidence of bright red blood but a positive Hemoccult stool test. Lab work reveals a white count of 6, H&H of 6 and 18, platelet 250. Sodium, potassium are normal BUN is 55 with creatinine 8.80. EKG reveals sinus rhythm with no signs of ischemia. She was given a Protonix bolus of 80 IV in the ER and was consented for blood. She was transferred to telemetry. GI and nephrology were consulted. A Protonix drip was continued with serial H& H is ordered as well as serial orthostatic vital signs. 2 units of blood were ordered. Vitamin K 5 mg IV was administered. Review of systems was otherwise negative. Physical Exam (per Admitting): General Appearance: no apparent distress, + obese Head: normocephalic, atraumatic Eyes: normal inspection, PERRL, sclerae normal ENT: hearing grossly normal Neck: trachea midline Respiratory/Chest: lungs clear, normal breath sounds, no respiratory distress, no accessory muscle use Cardiovascular: regular rate, rhythm, no edema, no gallop, no JVD, no murmur Abdomen/GI: normal bowel sounds, soft, + tenderness (generalized in lower abdomen, small area of ecchymosis is present.) Extremities/Musculoskelatal: normal inspection, no pedal edema Neurologic/Psych: no motor/sensory deficits, alert, normal mood/affect, oriented x 3 Skin: warm/dry, no rash, + pallor Hospital Course 72-year-old female presents with black tarry stools and severe anemia. 1. Anemia-likely secondary to acute GI bleed in the setting of known CKD on Procrit. EGD was normal. Protonix drip stopped and started on ppi bid.. Gi plans for colonoscopy as out patient received 2units prbc today with dialysis patient does not want to stay and wants to go home. No obvious bleeding currently. Advised to start Coumadin from tomorrow. f/u labs closely with pcp followup with alonso for colonoscopy. 2. Chronic hypoxic respiratory failure secondary to COPD-stable . 3. ESRD on hemodialysis-Had dialysis today 4. Diabetes type 2-d/c on home meds 5. Paroxysmal atrial fibrillation-continue diltiazem, restart Coumadin from tomorrow. f/u with Coumadin clinic. 6. Chronic diastolic heart failure-compensated. 7. Recent HCAP- Repeat chest x-ray reveals residual right base infiltrate.f/u with pcp. discharged home Total time spent on discharge = 35MINUTES This includes examination of the patient, discharge planning, medication reconciliation, and communication with other providers. Discharge Instructions Please take this sheet to every appointment for the next month Discharge Instructions Date of Service Jun 18, 2017. Admission Reason for Admission: Gi Bleed Discharge Discharge Diagnosis / Problem: Gi Bleed, Anemia Discharge Goals Goal(s): Decrease discomfort Activity Recommendations Activity Limitations: resume your previous activity . Instructions / Follow-Up Instructions / Follow-Up FOLLOWUP WITH FAMILY DOCTOR ON May AT 12:45PM LAB: CBC IN 4-5 DAYS AND FOLLOW RESULTS WITH FAMILY DOCTOR. FOLLOWUP WITH GI FOR COLONOSCOPY. RESUME COUMADIN FROM TOMORROW AND FOLLOW WITH COUMADIN CLINIC FOR COUMADIN DOSING. LAB: PT/INR IN 3-5 DAYS AND FOLLOW RESULTS WITH COUMADIN CLINIC. Current Hospital Diet Patient's current hospital diet: Renal Diet, Diabetes Type 2 Diet Discharge Diet Recommended Diet: Diabetes Type 2 Diet, Renal Diet Procedures Procedures Performed: EGD Pending Studies Studies pending at discharge: no Laboratory Results Hemoglobin A1c Test 06/17/17 05:15 Range/Units Estimated Average Glucose 100 mg/dl Hemoglobin A1c 5.1 4.5-5.6 % Medical Emergencies . Who to Call and When: Medical Emergencies: If at any time you feel your situation is an emergency, please call 911 immediately. . Non-Emergent Contact Non-Emergency issues call your: Primary Care Provider . .
== END 2017-06-18 14:15 | disposition home or self-care (01) | DRG 377 ==
LOC: C.EDB 06:39 → C.2E 07:39 → ENRESERV 07:52 → C.4E 06-17 18:49
PROVIDERS: ADMIT Hospitalist; ATTEND Internal Medicine
PROC: 0DJ08ZZ Inspection of Upper Intestinal Tract, Via Natural or Artificial Opening Endoscopic (ICD-10-PCS; principal; 2017-06-17 10:39)
DX: K92.2 Gastrointestinal hemorrhage, unspecified (principal); N18.6 End stage renal disease; J96.11 Chronic respiratory failure with hypoxia; I50.32 Chronic diastolic (congestive) heart failure; J44.9 Chronic obstructive pulmonary disease, unspecified; E11.22 Type 2 diabetes mellitus with diabetic chronic kidney disease; E78.5 Hyperlipidemia, unspecified; I11.0 Hypertensive heart disease with heart failure; I34.0 Nonrheumatic mitral (valve) insufficiency; D63.1 Anemia in chronic kidney disease; E66.9 Obesity, unspecified; I48.0 Paroxysmal atrial fibrillation; M19.90 Unspecified osteoarthritis, unspecified site; Z98.49 Cataract extraction status, unspecified eye; Z90.710 Acquired absence of both cervix and uterus; Z87.891 Personal history of nicotine dependence; Z79.4 Long term (current) use of insulin; Z99.81 Dependence on supplemental oxygen; Z79.01 Long term (current) use of anticoagulants; Z87.01 Personal history of pneumonia (recurrent); Z99.2 Dependence on renal dialysis; Z83.3 Family history of diabetes mellitus; Z80.9 Family history of malignant neoplasm, unspecified; Z82.49 Family history of ischemic heart disease and other diseases of the circulatory system; Z84.1 Family history of disorders of kidney and ureter

== ENCOUNTER 2017-06-29 18:32 | Inpatient (IN) | payer OTHER ==
[~2017-06-29] VITALS: Ht 167.6 cm; Wt 92.4 kg
[~2017-06-29 18:32] MED LIST changes: +ACET325T82 PO; +ADVIN25/60 INH; +B-CO1CAP17 PO; +CALC667C4 PO; +CAMPLOT10 TD; +CLON0.1T12 PO; +CMD5 PO; +CMD75 PO; +CYNI1000 IM; -DICY20TA10 PO; +DILT120C99 PO; +EPGI10M; +ERGO500037 PO; +INSDGI SC; +IPRASOL4 INH; +LIDO1CRE58 TOP; +LOPE1TAB25 PO; +LOSA1TAB38 PO; +LSX40 PO; +NVLGIPEN SQ; +OXGN; +PRED1SUS3 OPL; +UMEC1INH INH; +VALA1TAB2 PO; +VNTHFA/IN INH
[2017-06-29] MEDS ORDERED: SODIUM CHLORIDE 0.9% 1000ML 1,000 ML IV STA (18:57)
--- NOTE | 2017-06-29 18:59 | EMERGENCY ROOM VISIT NOTE ---
History Report prepared by Sebastian: Jonathan Crouch Under the Supervision of: Dr. Mihai Caldera M.D. First contact with patient: 18:32 Chief Complaint: SHORTNESS OF BREATH Stated Complaint: SOB, GI ASSESSMENT History of Present Illness The patient is a 72 year old female with a past medical history of atrial fibrillation with RVR, ESRD on dialysis, CHF, and COPD who presents to the ED with a cc of constant SOB beginning this afternoon. Positive for black stool and diarrhea four days ago. Negative for weight gain and swelling in her legs. The patient states that her SOB started today and worsens when she lies flat. She notes that she takes Coumadin for her irregular rhythm and is on oxygen at home. She reports that she is on dialysis, with her most recent treatment being yesterday. Source of History: patient Onset: this afternoon Position: other (lungs) Quality: other Timing: constant Modifying Factors (Worsening): other (lying flat) Associated Symptoms: + diarrhea Note: The patient also complains of black stool. She denies any leg weight or leg edema. Review of Systems See HPI for pertinent positives and negatives. A total of ten systems were reviewed and were otherwise negative. 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 (13) History of Helicobacter pylori infection (14) HTN (hypertension) (15) Moderate mitral regurgitation (16) Obesity (17) Osteoarthritis (18) Pancreatic cyst (19) Psoriasis (20) Renal cyst Surgical Problems: (1) H/O colonoscopy (2) H/O nasal polypectomy (3) History of cataract surgery (4) S/P appendectomy (5) S/P cholecystectomy (6) S/P left oophorectomy (7) S/P ASH (total abdominal hysterectomy) Family History Diabetes mellitus FATHER MOTHER BROTHER FH: cancer BROTHER FH: heart disease FATHER Hypertension BROTHER Kidney disease BROTHER Social History Smoking Status: Former Smoker Alcohol Use: none Drug Use: none Marital Status: Housing Status: lives with family Occupation Status: retired Current/Historical Medications Scheduled Calcium Acetate (Phoslo 667 Mg), 2 CAP PO TIDM Camphor & Menthol (Sarna), 1 APPLN TD PRN Clonidine Hcl (Catapres), 0.1 MG PO BID Cyanocobalamin (Vitamin B-12), 1,000 MCG INJ MONTHLY Diltiazem Hcl Coated Beads (Diltiazem Hcl Er), 120 MG PO DAILY Ergocalciferol (Vitamin D 79270 Unit), 50,000 UNITS PO MONTHLY Fluticasone Prop/Salmeterol (Advair Diskus 250/50 60 Dose), 2 PUFF INH BID Furosemide (Furosemide), 40 MG PO DAILY Home O2 Therapy (Oxygen), 3 LITERS NA CONTINOUS Insulin Aspart (Novolog Flexpen), UNITS SQ UD Insulin Glargine (Basaglar Kwikpen), 26 UNITS PO QAM Losartan Potassium (Cozaar), 100 MG PO DAILY Prednisolone Acetate (Ophth) (Pred Forte 1% Oph), 1 DROPS OPL DAILY Umeclidinium Cookson (Incruse Ellipta), 1 PUFF INH DAILY Valacyclovir Hcl (Valtrex), 1,000 MG PO DAILY Vitamin B Cmplx/Vitc/Folic Ac (Nephrocaps), 1 CAP PO DAILY Warfarin Sodium (Warfarin Sodium), 5 MG PO MWF Warfarin Sodium (Warfarin Sodium), 7.5 MG PO 4XWK Scheduled PRN Acetaminophen (Apap), 650 MG PO Q6 PRN for Pain Albuterol Hfa (Ventolin Hfa), 2 PUFFS INH Q4 PRN for SOB/Wheezing Ipratropium-Albuterol (Duoneb), 1 TREATMENT INH QID PRN for SOB/Wheezing Lidocaine-Prilocaine (Edvripgxe-Ocmqhgaera-Yjtf 2.5-2.5 %), 1 APPLN TOP UD PRN for PRIOR TO DIALYSIS Loperamide Hcl (Loperamide Hcl), 2 MG PO QID PRN for Diarrhea Miscellaneous Medications Epoetin Hakan (Procrit) Allergies Coded Allergies: No Known Allergies (Verified , 06/16/17) Physical Exam Vital Signs Date Time Temp Pulse Resp B/P (MAP) Pulse Ox O2 Delivery O2 Flow Rate FiO2 06/29/17 21:16 79 16 140/59 100 Nasal Cannula 3.0 06/29/17 20:40 77 06/29/17 20:34 77 06/29/17 19:55 78 25 151/62 100 Nasal Cannula 3.0 06/29/17 18:42 93 Nasal Cannula 3.0 06/29/17 18:42 36.9 81 26 137/58 93 Nasal Cannula 3.0 06/29/17 18:42 93 Nasal Cannula 3.0 Physical Exam GENERAL: Awake, alert, well-appearing, ill appearing, appears older than stated age. HENT: Normocephalic, atraumatic. EYES: Normal conjunctiva. Sclera non-icteric. NECK: Supple. No nuchal rigidity. FROM. RESPIRATORY: CTAB, no rhonchi, nasal cannula in place, mild respiratory distress , mildly decreased breath sounds bilaterally, right sided basilar crackles, no wheezes. CARDIAC: RRR, no MRG ABDOMEN: Soft, NTND, BS+ MSK: No chest wall TTP, no LE edema NEURO: GCS 15, CN 2-12 intact, moves all 4s on command, trace lower extremity edema. SKIN: No rash or jaundice noted. RECTAL: External hemorrhoids noted, melenic stool, heme positive. Medical Decision & Procedures ER Provider Diagnostic Interpretation: Radiology results as stated below per my review and radiologist interpretation: SINGLE VIEW CHEST FINDINGS: An AP, portable, upright chest radiograph is compared to study dated 06/16/2017 and correlated with chest CT dated 03/18/2016. The examination is degraded by portable technique and patient rotation. The heart is mildly enlarged and there is atherosclerotic calcification of the thoracic ureter. The pulmonary vascular is noncongested. Chronic interstitial thickening is similar to previous. Bibasilar atelectasis is noted. No airspace consolidation or large pleural effusion is identified. No pneumothorax is seen. The skeletal structures are osteopenic. The bony thorax is grossly intact. Degenerative change is seen throughout the thoracic spine. Calcific tendinopathy is noted in both shoulders. IMPRESSION: Cardiomegaly with no acute cardiopulmonary abnormality. Electronically signed by: Luigi García M.D. 06/29/2017 7:48 PM Laboratory Results Test 06/29/17 19:15 06/29/17 19:44 Immature Granulocyte % (Auto) 0.3 % White Blood Count 6.08 K/uL (4.8-10.8) Red Blood Count 2.41 M/uL (4.2-5.4) Hemoglobin 8.1 g/dL (12.0-16.0) Hematocrit 25.4 % (37-47) Mean Corpuscular Volume 105.4 fL (80-100) Mean Corpuscular Hemoglobin 33.6 pg (25-34) Mean Corpuscular Hemoglobin Concent 31.9 g/dl (32-36) Platelet Count 216 K/uL (130-400) Mean Platelet Volume 10.5 fL (7.4-10.4) Neutrophils (%) (Auto) 77.1 % Lymphocytes (%) (Auto) 13.7 % Monocytes (%) (Auto) 7.7 % Eosinophils (%) (Auto) 0.7 % Basophils (%) (Auto) 0.5 % Neutrophils # (Auto) 4.69 K/uL (1.4-6.5) Lymphocytes # (Auto) 0.83 K/uL (1.2-3.4) Monocytes # (Auto) 0.47 K/uL (0.11-0.59) Eosinophils # (Auto) 0.04 K/uL (0-0.5) Basophils # (Auto) 0.03 K/uL (0-0.2) Immature Granulocyte # (Auto) 0.02 K/uL (0.00-0.02) Anisocytosis PRESENT Activated Partial Thromboplast Time 35.4 SECONDS (21.0-31.0) Partial Thromboplastin Ratio 1.4 Total Bilirubin 0.4 mg/dl (0.2-1) Direct Bilirubin 0.1 mg/dl (0-0.2) Aspartate Amino Transf (AST/SGOT) 14 U/L (15-37) Alanine Aminotransferase (ALT/SGPT) 24 U/L (12-78) Alkaline Phosphatase 88 U/L (45-117) Total Creatine Kinase 45 U/L (26-192) Troponin I 0.018 ng/ml (0-0.045) Pro-B-Type Natriuretic Peptide 67854 pg/ml (0-900) Total Protein 5.9 gm/dl (6.4-8.2) Albumin 2.8 gm/dl (3.4-5.0) Lipase 120 U/L (73-393) Laboratory results reviewed by me Medications Administered Medications (Trade) Dose Ordered Sig/Joan Route Start Time Stop Time Status Last Admin Dose Admin Pantoprazole Sodium 80 mg/ Dextrose 120 ml @ 480 mls/hr TODAY@2000 IV 06/29/17 20:00 06/29/17 20:14 DC 06/29/17 20:16 480 MLS/HR Pantoprazole Sodium 40 mg/ Dextrose 100 ml @ 20 mls/hr Q5H IV 06/29/17 20:15 06/30/17 01:14 DC 06/29/17 20:17 20 MLS/HR ECG Per My Interpretation Indication: SOB/dyspnea Rate (beats per minute): 74 Rhythm: normal sinus Findings: other (Normal intervals, normal axis, no STS changes or TWI) ED Course 1846: The patient was evaluated in room C5. A complete history and physical exam was performed. 2145: I performed a rectal exam on the patient. 2056: Upon reexamination, the patient was stable. I discussed the test results and treatment plan with her. Discussed the patient's case with Dr. Rodriguez - [facility]. The patient will be evaluated for further management. Medical Decision Nursing notes reviewed. Ancillary studies and prior records reviewed. The patient is a 72 year old female with a past medical history of atrial fibrillation with RVR, ESRD on dialysis, CHF, and COPD who presents to the ED with a cc of constant SOB beginning this afternoon. Positive for black stool and diarrhea four days ago. Negative for weight gain and swelling in her legs. Differential diagnosis: Etiologies such as infections, reactive airway disease, pneumonia, pneumothorax , COPD, CHF, cardiac ischemia, pulmonary embolism, musculoskeletal, gastrointestinal, rectal bleed as well as others were entertained. Patient was seen and evaluated bedside. 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 Patient was complaining of some dark stool. Patient had blood work completed along with EKG and troponin. Patient's blood work does show some chronic anemia and hemoglobin of 8. Patient's INR is 2.4. Patient did have dark melenic stool that was heme positive in the bedside. Given the recent GI bleed that required for units of blood during her most recent admission with a therapeutic INR I believe the patient should be further evaluated. The patient did have a negative EGD but never completed a colonoscopy. I did speak with the on-call hospitalist who agreed to further evaluate treat patient. Medication Reconcilliation Current Medication List: was personally reviewed by me Blood Pressure Screening Patient's blood pressure: Elevated blood pressure Elevated blood pressure will be monitored by hospitalist. Consults Time Called: 2054 Consulting Physician: Dr. Rodriguez - [facility] Returned Call: 2056 Discussed the patient's case. The patient will be evaluated for further treatment and disposition. Impression Primary Impression: GI bleed Additional Impressions: Elevated INR SOB (shortness of breath) Anemia Scribe Attestation The scribe's documentation has been prepared under my direction and personally reviewed by me in its entirety. I confirm that the note above accurately reflects all work, treatment, procedures, and medical decision making performed by me. Departure Information Dispostion Being Evaluated By Hospitalist Referrals Noam Armando M.D. (PCP) Patient Instructions My [facility] [address] Problem Qualifiers Primary Impression: GI bleed GI bleed type/associated pathology: unspecified gastrointestinal hemorrhage type Qualified Codes: K92.2 - Gastrointestinal hemorrhage, unspecified Additional Impressions: Anemia Anemia type: unspecified type Qualified Codes: D64.9 - Anemia, unspecified
[2017-06-29 19:26] LABS: BASO % 0.5 %; BASO ABS # 0.03 K/uL (0-0.2); EOS % 0.7 %; EOS ABS # 0.04 K/uL (0-0.5); HEMATOCRIT 25.4 % (37-47); HEMOGLOBIN 8.1 g/dL (12.0-16.0); IG# 0.02 K/uL (0.00-0.02); LYMPH % 13.7 %; LYMPH ABS # 0.83 K/uL (1.2-3.4); MEAN CELL VOLUME 105.4 fL (80-100); MEAN CORPUSCULAR HEMOGLOBIN 33.6 pg (25-34); MEAN CORPUSCULAR HGB CONC 31.9 g/dl (32-36); MEAN PLATELET VOLUME 10.5 fL (7.4-10.4); MONO % 7.7 %; MONO ABS # 0.47 K/uL (0.11-0.59); NEUT % 77.1 %; NEUT ABS # 4.69 K/uL (1.4-6.5); PLATELET COUNT 216 K/uL (130-400); RED CELL DISTRIBUTION WIDTH CV 22.6 % (11.5-14.5); RED CELL DISTRIBUTION WIDTH SD 84.1 fL (36.4-46.3); WHITE BLOOD COUNT 6.08 K/uL (4.8-10.8)
--- NOTE | 2017-06-29 19:49 | DIAGNOSTIC IMAGING REPORT ---
SINGLE VIEW CHEST CLINICAL HISTORY: GI bleeding. FINDINGS: An AP, portable, upright chest radiograph is compared to study dated 06/16/2017 and correlated with chest CT dated 03/18/2016. The examination is degraded by portable technique and patient rotation. The heart is mildly enlarged and there is atherosclerotic calcification of the thoracic ureter. The pulmonary vascular is noncongested. Chronic interstitial thickening is similar to previous. Bibasilar atelectasis is noted. No airspace consolidation or large pleural effusion is identified. No pneumothorax is seen. The skeletal structures are osteopenic. The bony thorax is grossly intact. Degenerative change is seen throughout the thoracic spine. Calcific tendinopathy is noted in both shoulders. IMPRESSION: Cardiomegaly with no acute cardiopulmonary abnormality. Electronically signed by: Luigi García M.D. 06/29/2017 7:48 PM Dictated Date/Time: 06/29/2017 7:46 PM
[2017-06-29] MEDS ORDERED: PANTOprazole INJ 80 MG in DEXTROSE 5% 100ML IV SCH (20:00)
[2017-06-29 20:14] LABS: INR 2.4 (0.9-1.1); PTT PATIENT 35.4 SECONDS (21.0-31.0)
[2017-06-29] MEDS ORDERED: PANTOprazole INJ 40 MG in DEXTROSE 5% 100ML IV SCH (20:15)
[2017-06-29 20:40] LABS: ALBUMIN 2.8 gm/dl (3.4-5.0); CALCIUM 8.6 mg/dl (8.5-10.1); CREATININE 8.11 mg/dl (0.60-1.20); POTASSIUM 4.4 mmol/L (3.5-5.1); TOTAL PROTEIN 5.9 gm/dl (6.4-8.2)
[2017-06-29] MEDS ORDERED: WARF-246 PO ×2 (20:55→21:12)
[2017-06-29] MEDS ORDERED: NVLGI/PEN SQ (20:55)
[2017-06-29] MEDS ORDERED: CYAN100048 INJ (20:55)
[2017-06-29] MEDS ORDERED: ERGO500011 PO (20:55)
[2017-06-29] MEDS ORDERED: INSU100I23 PO (20:55)
[2017-06-29] MEDS ORDERED: DILT-213 PO (20:55)
[2017-06-29] MEDS ORDERED: DEXTROSE 50% 50 ML SYR IV PRN (21:45)
[2017-06-29] MEDS ORDERED: GLUCOSE 10 TABS/TUBE PO PRN (21:45)
[2017-06-29] MEDS ORDERED: GLUCOSE 40% GEL 15 GM TUBE PO PRN (21:45)
[2017-06-29] MEDS ORDERED: GLUCAGON FOR INJ 1 MG VIAL SQ PRN (21:45)
--- NOTE | 2017-06-29 21:57 | History and Physical ---
History & Physical Date & Time of Service: Jun 29, 2017 at 21:57 Chief Complaint: Sob, Gi Assessment Primary Care Physician: Noam Armando M.D. History of Present Illness Source: patient, clinic records, hospital records Patient is a 72-year-old female with a past medical history of anemia of chronic disease, ESRD (on dialysis), paroxysmal A. fib (on Coumadin), COPD (on 3L NC at home), DM 2, diastolic CHF and other medical problems listed below who presents with multiple episodes of black, tarry stool beginning this morning. Patient endorses about 5 episodes of black tarry stool today that were loose. Denies any bright red blood or clots. Associated with SOB. Patient is on 3L of oxygen at home chronically but states she felt more short of breath than usual. Denies lightheadedness, visual changes or chest pain. Denies any fever , chills, headache, near syncope, abdominal pain, nausea, vomiting or worsening LE swelling. Does not make urine. Receives dialysis on a //Tue schedule and is due tomorrow. Was recently admitted from June 16- with a similar description of melena and shortness of breath. Hemoglobin was 5 at that time and patient required 4 units PRBCs. Underwent an EGD that did not show active bleeding and was discharged with plans for an outpatient colonoscopy. Last colonoscopy was in April 2015 and showed tubular adenoma and for plastic polyps. In ED, patient was found to be saturating well on 3L nasal cannula. Hemoglobin is 8.1 today, which is close to baseline. INR is 2.4. Was started on a Protonix bolus and drip. Past Medical/Surgical History Medical Problems: (1) A-fib Permanent Comment: paroxysmal Status: Chronic (2) Adrenal adenoma Status: Chronic (3) Anemia of chronic disease Status: Chronic (4) AV fistula Status: Chronic (5) Chronic respiratory failure with hypoxia Status: Chronic (6) COPD, moderate Status: Chronic (7) Diastolic CHF Status: Chronic (8) DM type 2 (diabetes mellitus, type 2) Status: Chronic (9) Dyslipidemia Status: Chronic (10) ESRD (end stage renal disease) on dialysis Status: Chronic (11) H/O cardiovascular stress test Permanent Comment: 05/2013 - negative for ischemia Status: Chronic (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 (13) History of Helicobacter pylori infection Status: Chronic (14) HTN (hypertension) Status: Chronic (15) Moderate mitral regurgitation Permanent Comment: moderate to severe on 12/2015 echo Status: Chronic (16) Obesity Status: Chronic (17) Osteoarthritis Status: Chronic (18) Pancreatic cyst Status: Chronic (19) Psoriasis Status: Chronic (20) Renal cyst Status: Chronic Surgical Problems: (1) H/O colonoscopy Permanent Comment: 2005, hyperplastic polyps repeat in 10 years Status: Chronic (2) H/O nasal polypectomy Status: Chronic (3) History of cataract surgery Status: Chronic (4) S/P appendectomy Permanent Comment: 1971 Status: Chronic (5) S/P cholecystectomy Permanent Comment: 1971 Status: Chronic (6) S/P left oophorectomy Permanent Comment: 1981 Status: Chronic (7) S/P ASH (total abdominal hysterectomy) Permanent Comment: For Fibroids Status: Chronic Family History Diabetes mellitus FATHER MOTHER BROTHER FH: cancer BROTHER FH: heart disease FATHER Hypertension BROTHER Kidney disease BROTHER Social History Smoking Status: Former Smoker Drug Use: none Marital Status: Housing status: lives alone Occupational Status: retired Immunizations History of Influenza Vaccine: Yes Influenza Vaccine Date: Dec 26, 2014 History of Tetanus Vaccine?: Yes Tetanus Immunization Date: August 04, 2010 History of Pneumococcal: Yes Pneumococcal Date: Feb 24, 2015 Allergies Coded Allergies: No Known Allergies (Verified , 06/16/17) Home Medications Scheduled Calcium Acetate (Phoslo 667 Mg), 2 CAP PO TIDM Camphor & Menthol (Sarna), 1 APPLN TD PRN Clonidine Hcl (Catapres), 0.1 MG PO BID Cyanocobalamin (Vitamin B-12), 1,000 MCG INJ MONTHLY Diltiazem Hcl Coated Beads (Diltiazem Hcl Er), 120 MG PO DAILY Ergocalciferol (Vitamin D 07254 Unit), 50,000 UNITS PO MONTHLY Fluticasone Prop/Salmeterol (Advair Diskus 250/50 60 Dose), 2 PUFF INH BID Furosemide (Furosemide), 40 MG PO DAILY Home O2 Therapy (Oxygen), 3 LITERS NA CONTINOUS Insulin Aspart (Novolog Flexpen), UNITS SQ UD Insulin Glargine (Basaglar Kwikpen), 26 UNITS PO QAM Losartan Potassium (Cozaar), 100 MG PO DAILY Prednisolone Acetate (Ophth) (Pred Forte 1% Oph), 1 DROPS OPL DAILY Umeclidinium Strong (Incruse Ellipta), 1 PUFF INH DAILY Valacyclovir Hcl (Valtrex), 1,000 MG PO DAILY Vitamin B Cmplx/Vitc/Folic Ac (Nephrocaps), 1 CAP PO DAILY Warfarin Sodium (Warfarin Sodium), 5 MG PO MWF Warfarin Sodium (Warfarin Sodium), 7.5 MG PO 4XWK Scheduled PRN Acetaminophen (Apap), 650 MG PO Q6 PRN for Pain Albuterol Hfa (Ventolin Hfa), 2 PUFFS INH Q4 PRN for SOB/Wheezing Ipratropium-Albuterol (Duoneb), 1 TREATMENT INH QID PRN for SOB/Wheezing Lidocaine-Prilocaine (Ynygbmdob-Zwjogrmkxn-Ddne 2.5-2.5 %), 1 APPLN TOP UD PRN for PRIOR TO DIALYSIS Loperamide Hcl (Loperamide Hcl), 2 MG PO QID PRN for Diarrhea Miscellaneous Medications Epoetin Hakan (Procrit) Review of Systems Ten systems reviewed and negative except as noted in the HPI. Physical Exam Vital Signs Date Time Temp Pulse Resp B/P (MAP) Pulse Ox O2 Delivery O2 Flow Rate FiO2 06/29/17 21:16 79 16 140/59 100 Nasal Cannula 3.0 06/29/17 20:40 77 06/29/17 20:34 77 06/29/17 19:55 78 25 151/62 100 Nasal Cannula 3.0 06/29/17 18:42 93 Nasal Cannula 3.0 06/29/17 18:42 36.9 81 26 137/58 93 Nasal Cannula 3.0 06/29/17 18:42 93 Nasal Cannula 3.0 General Appearance: WD/WN, no apparent distress Head: normocephalic, atraumatic Eyes: normal inspection, PERRL, sclerae normal ENT: normal ENT inspection, hearing grossly normal, pharynx normal (Dry mucous membranes) Neck: supple, thyroid normal, trachea midline Respiratory/Chest: chest non-tender, no respiratory distress, no accessory muscle use, + wheezing (Scattered expiratory wheezes) Cardiovascular: regular rate, rhythm, no murmur, normal peripheral pulses Abdomen/GI: non tender, soft, no organomegaly Back: normal inspection Extremities/Musculoskelatal: normal inspection, no calf tenderness, non-tender Neurologic/Psych: no motor/sensory deficits, alert, normal mood/affect, oriented x 3 Skin: warm/dry, + pallor Diagnostics Laboratory Results Results Past 24 Hours Test 06/29/17 19:15 06/29/17 19:44 Range/Units White Blood Count 6.08 4.8-10.8 K/uL Red Blood Count 2.41 4.2-5.4 M/uL Hemoglobin 8.1 12.0-16.0 g/dL Hematocrit 25.4 37-47 % Mean Corpuscular Volume 105.4 80-100 fL Mean Corpuscular Hemoglobin 33.6 25-34 pg Mean Corpuscular Hemoglobin Concent 31.9 32-36 g/dl Platelet Count 216 130-400 K/uL Mean Platelet Volume 10.5 7.4-10.4 fL Neutrophils (%) (Auto) 77.1 % Lymphocytes (%) (Auto) 13.7 % Monocytes (%) (Auto) 7.7 % Eosinophils (%) (Auto) 0.7 % Basophils (%) (Auto) 0.5 % Neutrophils # (Auto) 4.69 1.4-6.5 K/uL Lymphocytes # (Auto) 0.83 1.2-3.4 K/uL Monocytes # (Auto) 0.47 0.11-0.59 K/uL Eosinophils # (Auto) 0.04 0-0.5 K/uL Basophils # (Auto) 0.03 0-0.2 K/uL RDW Standard Deviation 84.1 36.4-46.3 fL RDW Coefficient of Variation 22.6 11.5-14.5 % Immature Granulocyte % (Auto) 0.3 % Immature Granulocyte # (Auto) 0.02 0.00-0.02 K/uL Anisocytosis PRESENT Prothrombin Time 24.3 9.0-12.0 SECONDS Prothromb Time International Ratio 2.4 0.9-1.1 Activated Partial Thromboplast Time 35.4 21.0-31.0 SECONDS Partial Thromboplastin Ratio 1.4 Sodium Level 139 136-145 mmol/L Potassium Level 4.4 3.5-5.1 mmol/L Chloride Level 100 98-107 mmol/L Carbon Dioxide Level 28 21-32 mmol/L Anion Gap 11.0 3-11 mmol/L Blood Urea Nitrogen 91 7-18 mg/dl Creatinine 8.11 0.60-1.20 mg/dl Est Creatinine Clear Calc Drug Dose 7.6 ml/min Estimated GFR () 5.3 Estimated GFR (Non- 4.5 BUN/Creatinine Ratio 11.0 10-20 Random Glucose 217 70-99 mg/dl Calcium Level 8.6 8.5-10.1 mg/dl Total Bilirubin 0.4 0.2-1 mg/dl Direct Bilirubin 0.1 0-0.2 mg/dl Aspartate Amino Transf (AST/SGOT) 14 15-37 U/L Alanine Aminotransferase (ALT/SGPT) 24 12-78 U/L Alkaline Phosphatase 88 45-117 U/L Total Creatine Kinase 45 26-192 U/L Troponin I 0.018 0-0.045 ng/ml Pro-B-Type Natriuretic Peptide 52175 0-900 pg/ml Total Protein 5.9 6.4-8.2 gm/dl Albumin 2.8 3.4-5.0 gm/dl Lipase 120 73-393 U/L Diagnostic Radiology Chest x-ray: IMPRESSION: Cardiomegaly with no acute cardiopulmonary abnormality. EKG Normal sinus rhythm Normal ECG Normal EKG Impression Assessment and Plan Patient is a 72-year-old female with a past medical history of anemia of chronic disease, ESRD (on dialysis), paroxysmal A. fib (on Coumadin), COPD (on 3L NC at home), DM 2, diastolic CHF and other medical problems listed below who presents with multiple episodes of black, tarry stool beginning this morning. Anemia 2/2 GI bleed: -Five episodes of loose black tarry stool today -EGD in May 2017 without evidence of acute bleeding -GI planned for an out-patient colonoscopy -Hgb of 8.4 -Type and crossed for 2 u prbcs -Transfuse for hgb <8 -Hold coumadin -Serial H&Hs -Continue protonix drip -GI consult -Tele SOB: -2/2 chronic respiratory failure in setting of COPD, anemia -No respiratory distress, evidence of vascular congestion on CXR -O2 saturation is appropriate on home dose of 3L nasal cannula -Continue home inhalers, nebulizer treatments PRN ESRD (on dialysis): -Dialysis tomorrow -Nephro consulted -Cont renal vitamins, phosphate binders -Hold AM lasix dose in setting of GI bleed DM II: -Last a1c 5.1 in May 2017 -Hold home agents -SSI while in-patient -BSG AC HS Paroxysmal A. fib: -Coumadin held -INR of 2.4. Recheck in AM -Cont diltiazem HTN: -Normotensive -Cont losartan, clonidine Herpex simplex iridocyclitis: -Cont valtrex, prednisolone eye drop DVT Ppx: SCDs. No pharmacologic VTE in setting of GI bleed Code status: FULL PCP: Prabha Dispo: Admitted to telemetry. Discharge planning ordered. Patient seen in collaboration with Dr. Rodriguez. Please see addendum. Attending addendum. The patient was seen and examined in the emergency room. Please refer to the details history and physical for more information. She complained to have black tarry stool since noon today, she also complained to have some shortness of breath associated with it. She was in the hospital in May with very low hemoglobin of less than 6 and at that time he required 4 units of blood transfusion with a negative EGD. Advised to have colonoscopy as an outpatient. Denies to have any chest pain palpitation, nausea and/or vomiting or abdominal pain, headache dizziness numbness or tingling in the extremities, No leg swelling and no increase in weight. On examination in the emergency room she was hemodynamically stable. No apparent distress at rest. Chest-no wheezing and/or crackles. Heart-irregular, no murmur appreciated. Abdomen-benign no masses, bowel sounds present. 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 Labs and imaging studies reviewed. Likely to need colonoscopy for ongoing GI bleed with a negative EGD last month. Agree with the assessment and plan. Dr. Leobardo Rodriguez Resuscitation Status VTE Prophylaxis Will order VTE Prophylaxis: Yes
[2017-06-29] MEDS ORDERED: ACETAMINOPHEN 325 MG TAB PO PRN (22:15)
[2017-06-29] MEDS ORDERED: ALBUTEROL HFA 8 GM INHALER INH PRN (22:15)
[2017-06-29] MEDS ORDERED: ALBUT/IPRATROP 3MG/0.5MG NEB 3 ML VIAL INH PRN (22:15)
[2017-06-29 22:42] VITALS: BP 180/68; PULSE 83; TEMP 37; O2SAT 99; Ht 167.6 cm; Wt 92.4 kg
[2017-06-29 23:22] LABS: HEMOGLOBIN 7.9 g/dL (12.0-16.0)
[2017-06-30] VITALS (30 sets, daily range): BP systolic 98–154; BP diastolic 48–82; PULSE 70–90; TEMP 36.5–37.1; O2SAT 91–100
[2017-06-30] MEDS: INSULIN ASPART 100 UNITS/ML 3 ML PEN SC SCH ×5 (00:27→20:19)
[2017-06-30] MEDS: PANTOprazole INJ 40 MG in DEXTROSE 5% 100ML IV SCH ×4 (01:42→23:59)
[2017-06-30] MEDS ORDERED: INSULIN ASPART 100 UNITS/ML 3 ML PEN SC ONE (02:30)
[2017-06-30] MEDS ORDERED: INSULIN ASPART 100 UNITS/ML 3 ML PEN SC SCH (07:00)
--- NOTE | 2017-06-30 07:06 | NEPHROLOGY CONSULTATION ---
DATE OF CONSULTATION: 06/30/2017 ATTENDING OF RECORD: Laverne Simpson DO. REASON FOR CONSULTATION: ESRD. HISTORY OF PRESENT ILLNESS: This 72-year-old female who dialyzes at the [facility] on Tuesdays, , and Saturdays. Last dialysis treatment was Tuesday. The patient also has history of paroxysmal AFib, on Coumadin as well as underlying COPD and continues to smoke. The patient presented with shortness of breath and dark black stools. The patient was recently admitted a couple of weeks ago with similar presentation and required 4 units of blood to be transfused at that time. EGD was negative during that workup. The patient during this admission came in with a hemoglobin level of 8.1, trended down to 7.9, is on a Protonix drip and is currently n.p.o. and shortness of breath has improved. PAST MEDICAL HISTORY: Paroxysmal AFib, anemia of renal failure, end-stage renal disease, hyperlipidemia, hypertension, COPD, diastolic heart failure. PAST SURGICAL HISTORY: Appendectomy, cholecystectomy, fistula placement, hysterectomy and cataract surgeries. FAMILY HISTORY: Significant for diabetes. SOCIAL HISTORY: Former smoker, no alcohol, no drugs. Is and lives alone. CURRENT MEDICATIONS: Lantus, clonidine 0.1 mg p.o. b.i.d., diltiazem 120 mg a day, Cozaar 100 mg a day, Valtrex 1 gram daily, Nephrocaps daily, Advair inhaler twice a day, PhosLo 2 p.o. t.i.d. with meals, Protonix drip. REVIEW OF SYSTEMS: Positive fatigue. Positive shortness of breath. Positive dark tarry stools. No chest pain, no nausea or vomiting, no headaches, no blurry vision, no dysphagia. No rash or itching. All other review of systems otherwise negative. PHYSICAL EXAMINATION: VITAL SIGNS: Temperature 37.1, pulse 73, respiratory rate 16, blood pressure 136/82, satting 100% on 4 liters. GENERAL: Awake, alert, oriented x3. EYES: No scleral icterus. ENT: Moist mucous membranes. NECK: Supple. PULMONARY: Basilar rales. CARDIAC: Regular rate and rhythm. ABDOMEN: Bowel sounds positive, soft, nontender. EXTREMITIES: No clubbing, cyanosis or edema. NEUROLOGICALLY: Nonfocal. DERMATOLOGIC: No rash or ulcers noted. LABORATORY DATA: Pending for this morning. Other labs reviewed. Chest x-ray showed cardiomegaly with no acute cardiopulmonary abnormality. IMPRESSION AND PLAN: End-stage renal disease: We will plan on dialysis today with Procrit to try to help stabilize the hemoglobin levels since today is her regularly scheduled dialysis day. Appreciate consultation.
[2017-06-30] MEDS: CALCIUM ACETATE 667MG GELCAP PO SCH ×3 (07:30→16:45)
[2017-06-30] MEDS: NEPHROCAPS PO SCH (07:37)
[2017-06-30 07:51] LABS: INR 2.5 (0.9-1.1)
[2017-06-30 07:59] LABS: HEMATOCRIT 18.5 % (37-47); MEAN CELL VOLUME 104.5 fL (80-100); MEAN CORPUSCULAR HEMOGLOBIN 33.9 pg (25-34); MEAN CORPUSCULAR HGB CONC 32.4 g/dl (32-36); MEAN PLATELET VOLUME 9.1 fL (7.4-10.4); PLATELET COUNT 184 K/uL (130-400); RED CELL DISTRIBUTION WIDTH CV 23.4 % (11.5-14.5); RED CELL DISTRIBUTION WIDTH SD 84.9 fL (36.4-46.3); WHITE BLOOD COUNT 6.87 K/uL (4.8-10.8)
[2017-06-30] MEDS ORDERED: EPOETIN ALFA 10,000 UNITS/ML VIAL IV. SCH (08:00)
[2017-06-30] MEDS: PrednisoLONE ACET 1% OP SUSP 5 ML BTL OPL SCH (08:26)
[2017-06-30] MEDS: FLUTICASONE/SALMETEROL 250/50 (ADVAIR) 14 PUFF/1 INHALER INH SCH ×2 (08:27→20:19)
[2017-06-30] MEDS: INSULIN GLARGINE SOLOSTAR 100 UNITS/ML 3 ML PEN SC SCH (08:28)
[2017-06-30 08:31] LABS: CALCIUM 8.4 mg/dl (8.5-10.1); CREATININE 9.12 mg/dl (0.60-1.20); PHOSPHORUS 2.9 mg/dl (2.5-4.9); POTASSIUM 4.5 mmol/L (3.5-5.1)
[2017-06-30] MEDS ORDERED: ACETAMINOPHEN 325 MG TAB PO ONE (09:00)
[2017-06-30] MEDS ORDERED: FLUTICASONE/SALMETEROL 250/50 (ADVAIR) 14 PUFF/1 INHALER INH SCH (09:00)
[2017-06-30] MEDS ORDERED: FUROSEMIDE INJ 40 MG in SYRINGE 0 ML IV SCH (10:00)
--- NOTE | 2017-06-30 11:10 | Gastrointestinal Consultation ---
Gastrointestinal Consultation Date of Consultation: Jun 30, 2017 Attending Physician: Dr. Simpson Consulting Physician: Dr. Swanson Reason for Consultation: GI bleed History of Present Illness Patient is a 72 year old female patient of Dr. Armando with a hx of A-fib on Coumadin (INR 2.5 today), COPD on 3L O2 at home, ESRD on dialysis, DM-2 and CHF. She was brought to [facility] yesterday morning for melena and SOB. Hb on arrival yesterday was 8.1 and this morning is 6.0. A first unit of RBCs is being transfused. She is seen and examined while she is receiving dialysis. 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 Of note, she underwent EGD on 06/17/[address] Byers for melena anemia (at that time Hb was 5.6). There were no abnormalities on the EGD. INR was actually sub- therapeutic at that time and she received 2 units of RBCs. Past Medical/Surgical History Medical Problems: (1) Acute respiratory failure with hypoxia Status: Acute (2) Anemia Status: Acute (3) Anemia Status: Acute (4) Anemia Status: Acute (5) Anemia, chronic renal failure Status: Acute (6) Chest pain Status: Acute (7) CHF (congestive heart failure) Status: Acute (8) CHF (congestive heart failure) Status: Acute (9) CHF exacerbation Status: Acute (10) Chronic obstructive pulmonary disease Status: Acute (11) COPD (chronic obstructive pulmonary disease) Status: Acute (12) COPD exacerbation Status: Acute (13) Elevated INR Status: Acute (14) End stage renal disease Status: Acute (15) End stage renal disease on dialysis Status: Acute (16) GI bleed Status: Acute (17) GI bleed Status: Acute (18) GI bleed Status: Acute (19) Heme positive stool Status: Acute (20) Hemoptysis Status: Acute (21) Hypoxemia Status: Acute (22) Hypoxia Status: Acute (23) Left lower lobe pneumonia Status: Acute (24) PNA (pneumonia) Status: Acute (25) Pneumonia Status: Acute (26) Pulmonary congestion Status: Acute (27) Rapid atrial fibrillation Status: Acute (28) Respiratory failure Status: Acute (29) Right lower lobe pneumonia Status: Acute (30) Shortness of breath Status: Acute (31) SOB (shortness of breath) Status: Acute (32) Supratherapeutic INR Status: Acute Past Medical History: 1. Chronic disease, ESRD (on dialysis) 2. Paroxysmal A. fib (on Coumadin) 3. COPD (on 3L NC at home) 4. DM 2 5. Diastolic CHF 6. Adrenal Adenoma 7. Mitral regurg 8. HTN 9. Obesity 10. Psoriasis 11. H Pylori Past Surgical History: 1. AV fistula 2. Nasal polypectomy 3. Cataract surgery 4. Appendectomy 5. Cholecystectomy 6. Left oophorectomy 7. ASH 8. EGD 06/17/17 for melena, anemia: no abnormalities, no cause of anemia/melena. Family History Diabetes mellitus FATHER MOTHER BROTHER FH: cancer BROTHER FH: heart disease FATHER Hypertension BROTHER Kidney disease BROTHER Social History Smoking Status: Former Smoker Alcohol Use: none Drug Use: none Marital Status: Housing Status: lives with family Occupation Status: retired Allergies Coded Allergies: No Known Allergies (Verified , 06/16/17) Current Medications Home Meds and Scripts Medications Dose Route/Sig Max Daily Dose Days Date Category Dose Instructions Warfarin Sodium 5 Mg Tab 7.5 Mg PO [id number] 90 06/29/17 Reported TAKE SAT, TUES, THUR, SUN Vitamin B-12 (Cyanocobalamin) 1,000 Mcg Sub 1,000 Mcg INJ MONTHLY 06/29/17 Reported Novolog Flexpen (Insulin Aspart) 100 Units/Ml Inj Units SQ UD 06/29/17 Reported [facility] STATES 10 UNITS WITH BREAKFAST, 7 UNITS WITH LUNCH & supper. SKIP BREAKFAST DOSE ON DIALYSIS DAYS. PT TAKES DIFFERENTLY: SLIDING SCALE BEFORE MEALS,SKIP BREAKFAST ON DIALYSIS DAYS. Warfarin Sodium 5 Mg Tab 5 Mg PO MWF 06/29/17 Reported DIRECTED BY ANTI-COAGULATION CLINIC Diltiazem Hcl Er (Diltiazem Hcl Coated Beads) 120 Mg Cap 120 Mg PO DAILY 06/29/17 Reported Vitamin D 61745 Unit (Ergocalciferol) 50,000 Unit Cap 50,000 Units PO MONTHLY 06/29/17 Reported Basaglar Kwikpen (Insulin Glargine) 100 Unit/Ml Inj 26 Units PO QAM 06/29/17 Reported Sarna (Camphor & Menthol) 1 Lot Lot 1 Appln TD PRN 05/14/17 Reported APPLY TO SKIN NEEDED FOR ITCHING Loperamide Hcl 2 Mg Tab 2 Mg PO QID PRN 05/14/17 Reported Pred Forte 1% Oph (Prednisolone Acetate (Ophth)) 1 % Neena 1 Drops OPL DAILY 10/26/16 Reported Duoneb (Ipratropium-Albuterol) 3 Ml Nebu 1 Treatment INH QID PRN 10/26/16 Reported Apap (Acetaminophen) 325 Mg Tab 650 Mg PO Q6 PRN 10/26/16 Reported Valtrex (Valacyclovir Hcl) 1 Gm Tab 1,000 Mg PO DAILY 10/26/16 Reported Nephrocaps (Vitamin B Complex/Vit C/Folic Acid) Cap 1 Cap PO DAILY 10/26/16 Reported Phoslo 667 Mg (Calcium Acetate) 667 Mg Cap 2 Cap PO TIDM 10/26/16 Reported Cozaar (Losartan Potassium) 100 Mg Tab 100 Mg PO DAILY 10/26/16 Reported Incruse Ellipta (Umeclidinium [place]) 62.5 Mcg/Inh Inh 1 Puff INH DAILY 10/26/16 Reported Furosemide 40 Mg Tab 40 Mg PO DAILY 05/01/16 Reported Brsiovylg-Utqjsbgliy-Crle 2.5-2.5 % (Lidocaine-Prilocaine) 1 Cre Cre 1 Appln TOP UD PRN 05/01/16 Reported APPLY SMALL AMT TO ACCESS SITE 1-2 HOURS BEFORE DIALYSIS. COVER WITH SARAN WRAP Procrit (Epoetin Hakan) 10,000 Units Inj 05/01/16 Reported per dialysis clinic Ventolin Hfa (Albuterol) 200 Puffs/28156 Mcg Aers 2 Puffs INH Q4 PRN 05/01/16 Reported Oxygen Gas 3 Liters NA CONTINOUS 05/15/15 Reported Advair Diskus 250/50 60 Dose (Fluticasone Prop/Salmeterol) 1 Ea Aerp 2 Puff INH BID 05/15/15 Reported Catapres (Clonidine Hcl) 0.1 Mg Tab 0.1 Mg PO BID 05/15/15 Reported Review of Systems Constitutional: + fatigue, No fever, No chills, No sweats, No weight loss, No weakness Eyes: No eye pain, No redness ENT: No sore throat, No trouble swallowing, No pain on swallowing Respiratory: No cough, No wheezing, No shortness of breath, No dyspnea on exertion Cardiac: No chest pain, No edema, No palpitations Abdomen: + see HPI, + GI bleeding, No pain, No nausea, No vomiting, No diarrhea Neuro: No memory loss, No weakness, No numbness/tingling, No vertigo, No balance problems Psych: No depression symptoms, No anxiety, No insomnia Heme: No abnormal bleeding/bruising, No night sweats Endo: No excessive thirst, No excessive urination Skin: No rash, No itch, No new/changing skin lesions, No jaundice Physical Exam Date Time Temp Pulse Resp B/P (MAP) Pulse Ox O2 Delivery O2 Flow Rate FiO2 06/30/17 08:00 Nasal Cannula 4.0 06/30/17 07:16 36.5 77 18 144/79 (100) 99 Nasal Cannula 4.0 06/30/17 04:00 37.1 73 16 136/82 (100) 100 Nasal Cannula 4.0 06/30/17 04:00 Nasal Cannula 4.0 06/30/17 00:21 36.7 70 16 146/67 (93) 100 Nasal Cannula 4.0 06/29/17 23:59 Nasal Cannula 4.0 06/29/17 22:42 37.0 83 20 180/68 99 Nasal Cannula 4.0 06/29/17 22:16 80 21 152/78 100 06/29/17 21:16 79 16 140/59 100 Nasal Cannula 3.0 06/29/17 20:40 77 06/29/17 20:34 77 06/29/17 19:55 78 25 151/62 100 Nasal Cannula 3.0 06/29/17 18:42 93 Nasal Cannula 3.0 06/29/17 18:42 36.9 81 26 137/58 93 Nasal Cannula 3.0 06/29/17 18:42 93 Nasal Cannula 3.0 General Appearance: no apparent distress Eyes: normal inspection, EOMI Neck: supple, no adenopathy, thyroid normal Respiratory/Chest: chest non-tender, lungs clear, normal breath sounds, no accessory muscle use Cardiovascular: regular rate, rhythm, no JVD, no murmur Abdomen: normal bowel sounds, non tender, soft, no organomegaly Extremities: normal inspection, no pedal edema, normal capillary refill Neurologic/Psych: alert, normal mood/affect, oriented x 3 Skin: normal color, no jaundice, warm/dry, no rash Laboratory Results Last 24 Hours Test 06/29/17 19:15 06/29/17 19:44 06/29/17 22:41 06/29/17 22:56 White Blood Count 6.08 K/uL Red Blood Count 2.41 M/uL Hemoglobin 8.1 g/dL 7.9 g/dL Hematocrit 25.4 % 25.0 % Mean Corpuscular Volume 105.4 fL Mean Corpuscular Hemoglobin 33.6 pg Mean Corpuscular Hemoglobin Concent 31.9 g/dl Platelet Count 216 K/uL Mean Platelet Volume 10.5 fL Neutrophils (%) (Auto) 77.1 % Lymphocytes (%) (Auto) 13.7 % Monocytes (%) (Auto) 7.7 % Eosinophils (%) (Auto) 0.7 % Basophils (%) (Auto) 0.5 % Neutrophils # (Auto) 4.69 K/uL Lymphocytes # (Auto) 0.83 K/uL Monocytes # (Auto) 0.47 K/uL Eosinophils # (Auto) 0.04 K/uL Basophils # (Auto) 0.03 K/uL RDW Standard Deviation 84.1 fL RDW Coefficient of Variation 22.6 % Immature Granulocyte % (Auto) 0.3 % Immature Granulocyte # (Auto) 0.02 K/uL Anisocytosis PRESENT Prothrombin Time 24.3 SECONDS Prothromb Time International Ratio 2.4 Activated Partial Thromboplast Time 35.4 SECONDS Partial Thromboplastin Ratio 1.4 Sodium Level 139 mmol/L Potassium Level 4.4 mmol/L Chloride Level 100 mmol/L Carbon Dioxide Level 28 mmol/L Anion Gap 11.0 mmol/L Blood Urea Nitrogen 91 mg/dl Creatinine 8.11 mg/dl Est Creatinine Clear Calc Drug Dose 7.6 ml/min Estimated GFR () 5.3 Estimated GFR (Non- 4.5 BUN/Creatinine Ratio 11.0 Random Glucose 217 mg/dl Calcium Level 8.6 mg/dl Total Bilirubin 0.4 mg/dl Direct Bilirubin 0.1 mg/dl Aspartate Amino Transf (AST/SGOT) 14 U/L Alanine Aminotransferase (ALT/SGPT) 24 U/L Alkaline Phosphatase 88 U/L Total Creatine Kinase 45 U/L Troponin I 0.018 ng/ml Pro-B-Type Natriuretic Peptide 07249 pg/ml Total Protein 5.9 gm/dl Albumin 2.8 gm/dl Lipase 120 U/L Bedside Glucose 210 mg/dl Test 06/30/17 00:01 06/30/17 02:43 06/30/17 05:56 06/30/17 07:26 Bedside Glucose 204 mg/dl 191 mg/dl 150 mg/dl White Blood Count 6.87 K/uL Red Blood Count 1.77 M/uL Hemoglobin 6.0 g/dL Hematocrit 18.5 % Mean Corpuscular Volume 104.5 fL Mean Corpuscular Hemoglobin 33.9 pg Mean Corpuscular Hemoglobin Concent 32.4 g/dl RDW Standard Deviation 84.9 fL RDW Coefficient of Variation 23.4 % Platelet Count 184 K/uL Mean Platelet Volume 9.1 fL Prothrombin Time 25.8 SECONDS Prothromb Time International Ratio 2.5 Sodium Level 140 mmol/L Potassium Level 4.5 mmol/L Chloride Level 101 mmol/L Carbon Dioxide Level 26 mmol/L Anion Gap 13.0 mmol/L Blood Urea Nitrogen 109 mg/dl Creatinine 9.12 mg/dl Est Creatinine Clear Calc Drug Dose 6.6 ml/min Estimated GFR () 4.6 Estimated GFR (Non- 3.9 BUN/Creatinine Ratio 11.9 Random Glucose 136 mg/dl Calcium Level 8.4 mg/dl Phosphorus Level 2.9 mg/dl Magnesium Level 2.0 mg/dl Impression Patient is a 72 year old female with acute blood loss anemia, melena suggestive of small bowel AVMs as pts on dialysis have increased rates of these and recent EGD w/o ulcer disease. Plan 1. Plan for EGD today. However, she is currently in dialysis. She has been NPO. We may be able to arrange EGD today after dialysis dependent on the endoscopy unit availability . 2. After discussing with anesthesia, they preferred not to do EGD immediately after dialysis as pts can become hypotensive. Addendum: pt seen later with Dr. Swanson, after dialysis and she was lethargic and mildly SOB with 3L O2 by SD. Primary hospitalist had been summoned. Will plan for EGD tomorrow if pt is optimized from a cardiorespiratory standpoint. Attending Addm: I have seen, examined and agree with the plan as outlined above by TAYLOR Cao. -No signs of ongoing bleeding -INR needs to be reversed prior to EGD -Is going to undergo HD again tomorrow -Will re-evaluate in the AM timing of endoscopy -Continue IV PPI gtt for now
[2017-06-30] MEDS: CLONIDINE HCL 0.1 MG TAB PO SCH ×2 (14:20→20:19)
[2017-06-30] MEDS ORDERED: NURSING VERBAL MED ORDER ONE (14:30)
[2017-06-30] MEDS: LOSARTAN POTASSIUM 50 MG TAB PO SCH (14:58)
[2017-06-30] MEDS: DILTIAZEM HCL 120 MG CAPCR PO SCH (14:58)
[2017-06-30] MEDS ORDERED: PHYTONADIONE INJ 5 MG in SODIUM CHLORIDE 0.9% 50ML 50 ML IV ONE (17:00)
--- NOTE | 2017-06-30 18:36 | Progress Note ---
Medicine Progress Note Date & Time of Visit: Jun 30, 2017 at 16:27. 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 Patient represents with multiple episodes of melena and had some overnight per nursing staff. Patient underwent hemodialysis with 2 units of blood transfusion today and is quite lethargic post dialysis session. She is unable to give an accurate history at this time but is easily awakened and is appropriate when asked questions. She denies any pain at this time. Objective Last 8 Hrs Date Time Temp Pulse Resp B/P (MAP) Pulse Ox O2 Delivery O2 Flow Rate FiO2 06/30/17 16:00 Nasal Cannula 4.0 06/30/17 15:14 36.7 90 20 139/67 (91) 97 Nasal Cannula 4.0 06/30/17 14:37 37.0 87 26 133/71 (91) 91 Nasal Cannula 4.0 06/30/17 14:10 36.5 78 100/50 (67) 06/30/17 14:00 78 100/50 06/30/17 13:45 80 98/52 06/30/17 13:30 82 102/54 06/30/17 13:15 87 110/52 /08/12 13:00 36.8 89 18 108/48 /18 13:00 89 108/48 06/30/17 12:49 36.8 89 18 107/50 06/30/17 12:45 89 107/50 /18 12:31 87 114/54 18 12:27 36.9 89 18 107/55 06/30/17 12:15 89 107/55 18 12:00 84 113/57 06/30/17 11:54 36.9 75 18 110/52 /18 11:45 75 108/56 /18 11:38 36.9 85 18 115/54 /18 11:30 85 115/54 /18 11:15 89 146/67 06/30/17 11:01 82 142/51 /18 10:53 36.8 79 142/65 (90) Physical Exam: GEN: obese, in no acute distress, fatigued but arousable. HEENT: NC/AT, pupils are equal and round bilaterally, normal sclerae, MMM CARDIO: reg rate, S1/2 heard without m/g/r LUNGS: CTA bilaterally, no crackles, rales or wheezes, good diaphragmatic excursion ABD: soft, non-tender, non-distended, no rebound or guarding EXTREMITY: RP and DP palpable 2+ bilat, no LE swelling or edema, extremities are warm and well-perfused NEURO: cannot be evaluated as patient is too fatigued, mentating well. MUSC: cannot be evaluated as patient is too fatigued SKIN: warm and dry Laboratory Results: 06/30/17 07:26 06/30/17 07:26 Test 06/29/17 19:15 06/29/17 19:44 06/30/17 07:26 06/30/17 16:55 Immature Granulocyte % (Auto) 0.3 % White Blood Count 6.08 K/uL (4.8-10.8) Red Blood Count 2.41 M/uL (4.2-5.4) 1.77 M/uL (4.2-5.4) Hemoglobin 8.1 g/dL (12.0-16.0) Hematocrit 25.4 % (37-47) Mean Corpuscular Volume 105.4 fL (80-100) 104.5 fL (80-100) Mean Corpuscular Hemoglobin 33.6 pg (25-34) 33.9 pg (25-34) Mean Corpuscular Hemoglobin Concent 31.9 g/dl (32-36) 32.4 g/dl (32-36) Platelet Count 216 K/uL (130-400) Mean Platelet Volume 10.5 fL (7.4-10.4) 9.1 fL (7.4-10.4) Neutrophils (%) (Auto) 77.1 % Lymphocytes (%) (Auto) 13.7 % Monocytes (%) (Auto) 7.7 % Eosinophils (%) (Auto) 0.7 % Basophils (%) (Auto) 0.5 % Neutrophils # (Auto) 4.69 K/uL (1.4-6.5) Lymphocytes # (Auto) 0.83 K/uL (1.2-3.4) Monocytes # (Auto) 0.47 K/uL (0.11-0.59) Eosinophils # (Auto) 0.04 K/uL (0-0.5) Basophils # (Auto) 0.03 K/uL (0-0.2) Immature Granulocyte # (Auto) 0.02 K/uL (0.00-0.02) Anisocytosis PRESENT Activated Partial Thromboplast Time 35.4 SECONDS (21.0-31.0) Partial Thromboplastin Ratio 1.4 Total Bilirubin 0.4 mg/dl (0.2-1) Direct Bilirubin 0.1 mg/dl (0-0.2) Aspartate Amino Transf (AST/SGOT) 14 U/L (15-37) Alanine Aminotransferase (ALT/SGPT) 24 U/L (12-78) Alkaline Phosphatase 88 U/L (45-117) Total Creatine Kinase 45 U/L (26-192) Troponin I 0.018 ng/ml (0-0.045) Pro-B-Type Natriuretic Peptide 98858 pg/ml (0-900) Total Protein 5.9 gm/dl (6.4-8.2) Albumin 2.8 gm/dl (3.4-5.0) Lipase 120 U/L (73-393) RDW Standard Deviation 84.9 fL (36.4-46.3) RDW Coefficient of Variation 23.4 % (11.5-14.5) Prothrombin Time 25.8 SECONDS (9.0-12.0) Prothromb Time International Ratio 2.5 (0.9-1.1) Anion Gap 13.0 mmol/L (3-11) Est Creatinine Clear Calc Drug Dose 6.6 ml/min Estimated GFR () 4.6 Estimated GFR (Non- 3.9 BUN/Creatinine Ratio 11.9 (10-20) Calcium Level 8.4 mg/dl (8.5-10.1) Phosphorus Level 2.9 mg/dl (2.5-4.9) Magnesium Level 2.0 mg/dl (1.8-2.4) Bedside Glucose 135 mg/dl (70-90) Last 24 Hours Test 06/29/17 19:15 06/29/17 19:44 06/29/17 22:41 06/29/17 22:56 White Blood Count 6.08 K/uL Red Blood Count 2.41 M/uL Hemoglobin 8.1 g/dL 7.9 g/dL Hematocrit 25.4 % 25.0 % Mean Corpuscular Volume 105.4 fL Mean Corpuscular Hemoglobin 33.6 pg Mean Corpuscular Hemoglobin Concent 31.9 g/dl Platelet Count 216 K/uL Mean Platelet Volume 10.5 fL Neutrophils (%) (Auto) 77.1 % Lymphocytes (%) (Auto) 13.7 % Monocytes (%) (Auto) 7.7 % Eosinophils (%) (Auto) 0.7 % Basophils (%) (Auto) 0.5 % Neutrophils # (Auto) 4.69 K/uL Lymphocytes # (Auto) 0.83 K/uL Monocytes # (Auto) 0.47 K/uL Eosinophils # (Auto) 0.04 K/uL Basophils # (Auto) 0.03 K/uL RDW Standard Deviation 84.1 fL RDW Coefficient of Variation 22.6 % Immature Granulocyte % (Auto) 0.3 % Immature Granulocyte # (Auto) 0.02 K/uL Anisocytosis PRESENT Prothrombin Time 24.3 SECONDS Prothromb Time International Ratio 2.4 Activated Partial Thromboplast Time 35.4 SECONDS Partial Thromboplastin Ratio 1.4 Sodium Level 139 mmol/L Potassium Level 4.4 mmol/L Chloride Level 100 mmol/L Carbon Dioxide Level 28 mmol/L Anion Gap 11.0 mmol/L Blood Urea Nitrogen 91 mg/dl Creatinine 8.11 mg/dl Est Creatinine Clear Calc Drug Dose 7.6 ml/min Estimated GFR () 5.3 Estimated GFR (Non- 4.5 BUN/Creatinine Ratio 11.0 Random Glucose 217 mg/dl Calcium Level 8.6 mg/dl Total Bilirubin 0.4 mg/dl Direct Bilirubin 0.1 mg/dl Aspartate Amino Transf (AST/SGOT) 14 U/L Alanine Aminotransferase (ALT/SGPT) 24 U/L Alkaline Phosphatase 88 U/L Total Creatine Kinase 45 U/L Troponin I 0.018 ng/ml Pro-B-Type Natriuretic Peptide 86957 pg/ml Total Protein 5.9 gm/dl Albumin 2.8 gm/dl Lipase 120 U/L Bedside Glucose 210 mg/dl Test 06/30/17 00:01 06/30/17 02:43 06/30/17 05:56 06/30/17 07:26 Bedside Glucose 204 mg/dl 191 mg/dl 150 mg/dl White Blood Count 6.87 K/uL Red Blood Count 1.77 M/uL Hemoglobin 6.0 g/dL Hematocrit 18.5 % Mean Corpuscular Volume 104.5 fL Mean Corpuscular Hemoglobin 33.9 pg Mean Corpuscular Hemoglobin Concent 32.4 g/dl RDW Standard Deviation 84.9 fL RDW Coefficient of Variation 23.4 % Platelet Count 184 K/uL Mean Platelet Volume 9.1 fL Prothrombin Time 25.8 SECONDS Prothromb Time International Ratio 2.5 Sodium Level 140 mmol/L Potassium Level 4.5 mmol/L Chloride Level 101 mmol/L Carbon Dioxide Level 26 mmol/L Anion Gap 13.0 mmol/L Blood Urea Nitrogen 109 mg/dl Creatinine 9.12 mg/dl Est Creatinine Clear Calc Drug Dose 6.6 ml/min Estimated GFR () 4.6 Estimated GFR (Non- 3.9 BUN/Creatinine Ratio 11.9 Random Glucose 136 mg/dl Calcium Level 8.4 mg/dl Phosphorus Level 2.9 mg/dl Magnesium Level 2.0 mg/dl Test 06/30/17 14:45 Bedside Glucose 124 mg/dl Assessment & Plan 72-year-old female with chronic anemia of 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 Patient represents with multiple episodes of melena and had some overnight per nursing staff. Patient underwent hemodialysis with 2 units of blood transfusion today and is quite lethargic post dialysis session. She is unable to give an accurate history at this time but is easily awakened and is appropriate when asked questions. She denies any pain at this time. 1. Acute blood loss anemia secondary to GI bleed-GI planning for inpatient upper endoscopy in a.m. Patient received 2 units of blood today without incident. Vitamin K given to reverse warfarin. Repeat H&H is pending. Appreciate GI recommendations. 2. Chronic respiratory failure in setting of COPD-patient is at baseline which is 3 L nasal cannula all the time. No respiratory distress. Continue home inhalers. 3. ESRD on dialysis-received dialysis today with 1 L taken off. Plan for dialysis again tomorrow. Appreciate nephrology involvement. 4. Diabetes type 2-insulin sliding scale with Lantus and carb coverage while patient is in hospital. 5. Paroxysmal A. fib-Coumadin held-continue diltiazem. 6. Hypertension-stable continue losartan, clonidine. 7. HSV iridocyclitis-continue Valtrex and prednisolone eyedrops. DVT prophylaxis SCDs as chemoprophylaxis contraindicated in setting of GI bleed CODE STATUS full Disposition continue telemetry. Plan EGD as an inpatient tomorrow Laverne Simpson DO [facility] hospitalist Consultants: Nephro-Oncu GI-Craft Current Inpatient Medications: Current Inpatient Medications Medications (Trade) Dose Ordered Sig/Joan Route Start Time Stop Time Status Last Admin Dose Admin Glucose (Glucose 40% Gel) 15-30 GRAMS 15 GRAMS... UD PRN PO 06/29/17 21:45 07/29/17 21:44 Glucose (Glucose Chew Tab) 4-8 Tablets 4 Tabl... UD PRN PO 06/29/17 21:45 07/29/17 21:44 Dextrose (Dextrose 50% 50ML Syringe) 25-50ML OF 50% DW IV FOR... UD PRN IV 06/29/17 21:45 07/29/17 21:44 Glucagon (Glucagon Inj) 1 mg UD PRN SQ 06/29/17 21:45 07/29/17 21:44 Insulin Glargine (Lantus Solostar Pen) If BSG <110, give 0 units... QAM SC 06/30/17 09:00 07/30/17 08:59 06/30/17 08:28 10 UNITS Acetaminophen (Tylenol Tab) 650 mg Q6 PRN PO 06/29/17 22:15 07/29/17 22:14 Albuterol (Ventolin Hfa Inhaler) 2 puffs Q4 PRN INH 06/29/17 22:15 07/29/17 22:14 Calcium Acetate (Phoslo Cap) 1,334 mg TIDM PO 06/30/17 07:30 07/30/17 07:59 Clonidine HCl (Catapres Tab) 0.1 mg BID PO 06/30/17 09:00 07/30/17 08:59 Diltiazem HCl (Cardizem Cd Cap) 120 mg DAILY PO 06/30/17 09:00 07/30/17 08:59 Albuterol/ Ipratropium (Duoneb) 3 ml QID PRN INH 06/29/17 22:15 07/29/17 22:14 Losartan Potassium (coZAAR TAB) 100 mg DAILY PO 06/30/17 09:00 07/30/17 08:59 Prednisolone Acetate (Pred Forte 1% Oph Susp) 1 drops DAILY OPL 06/30/17 09:00 07/30/17 08:59 06/30/17 08:26 1 DROPS Valacyclovir HCl (Valtrex Tab) 1,000 mg DAILY PO 06/30/17 09:00 07/30/17 08:59 06/30/17 08:27 1,000 MG Vitamin B Complex/ Vit C/Folic Acid (Nephrocaps) 1 cap DAILY PO 06/30/17 09:00 07/30/17 08:59 Miscellaneous Information (Order Awaiting Action) 1 ea QS N/A 06/30/17 00:00 07/30/17 00:00 Salmeterol Xinafoate/ Fluticasone (Advair Diskus 250/50 Inh) 1 puff BID INH 06/30/17 09:00 07/30/17 08:59 06/30/17 08:27 1 PUFF Pantoprazole Sodium 40 mg/ Dextrose 100 ml @ 20 mls/hr Q5H IV 06/30/17 01:00 07/30/17 00:59 06/30/17 05:58 20 MLS/HR Epoetin [place]akan (Procrit Inj) 10,000 units TODAY@0800 IV. 06/30/17 08:00 06/30/17 18:00 06/30/17 11:06 10,000 UNITS Insulin Aspart (novoLOG ASPART) SLIDING SCALE If C... ACHS SC 06/30/17 16:15 07/29/17 22:59 Phytonadione 5 mg/ Sodium Chloride 50.5 ml @ 101 mls/hr ONE IV 06/30/17 16:30 07/30/17 16:29 UNV
[2017-06-30 18:53] LABS: HEMATOCRIT 24.4 % (37-47); HEMOGLOBIN 7.8 g/dL (12.0-16.0)
[2017-07-01] VITALS (10 sets, daily range): BP systolic 107–183; BP diastolic 46–77; PULSE 77–86; TEMP 36.6–37.1; O2SAT 89–100
[2017-07-01] MEDS: PANTOprazole INJ 40 MG in DEXTROSE 5% 100ML IV SCH ×2 (04:42→10:32)
--- NOTE | 2017-07-01 07:03 | Nephrology Progress Note ---
Nephrology Progress Note Date of Service: Jul 01, 2017. Subjective 72 yo female with GI bleed with one large dark tarry stool last evening and none since then. pt was very exhausted yesterday but appears to have more energy today. Objective Date Time Temp Pulse Resp B/P (MAP) Pulse Ox O2 Delivery O2 Flow Rate FiO2 07/01/17 04:00 Nasal Cannula 3.0 07/01/17 03:54 37.0 78 18 110/61 (77) 100 07/01/17 00:03 37.1 77 18 109/57 (74) 100 06/30/17 23:59 Nasal Cannula 3.0 06/30/17 20:00 Nasal Cannula 3.0 06/30/17 19:16 37.1 87 18 117/66 (83) 100 Nasal Cannula 3.0 06/30/17 18:15 88 19 138/72 (94) 100 Nasal Cannula 4.0 06/30/17 18:00 88 18 137/73 (94) 100 Nasal Cannula 4.0 06/30/17 17:45 88 16 129/72 (91) 100 Nasal Cannula 4.0 06/30/17 17:30 82 18 154/62 (92) 100 Nasal Cannula 4.0 06/30/17 17:15 85 17 131/66 (87) 100 Nasal Cannula 4.0 06/30/17 16:00 Nasal Cannula 4.0 06/30/17 15:14 36.7 90 20 139/67 (91) 97 Nasal Cannula 4.0 06/30/17 14:37 37.0 87 26 133/71 (91) 91 Nasal Cannula 4.0 06/30/17 14:10 36.5 78 100/50 (67) 06/30/17 14:00 78 100/50 06/30/17 13:45 80 98/52 06/30/17 13:30 82 102/54 18 13:15 87 110/52 06/30/17 13:00 36.8 89 18 108/48 06/30/17 13:00 89 108/48 18 12:49 36.8 89 18 107/50 18 12:45 89 107/50 18 12:31 87 114/54 06/30/17 12:27 36.9 89 18 107/55 4/5/18 12:15 89 107/55 06/30/17 12:00 84 113/57 06/30/17 11:54 36.9 75 18 110/52 06/30/17 11:45 75 108/56 06/30/17 11:38 36.9 85 18 115/54 06/30/17 11:30 85 115/54 06/30/17 11:15 89 146/67 06/30/17 11:01 82 142/51 06/30/17 10:53 36.8 79 142/65 (90) 06/30/17 08:00 Nasal Cannula 4.0 06/30/17 07:16 36.5 77 18 144/79 (100) 99 Nasal Cannula 4.0 Physical Exam: General-aaox3 Eyes-no scleral icterus ENT-mmm Neck-supple Lungs-cta Heart-rrr Abdomen-bs+ s/nt/nd Extremities-no c/c/e Neuro-nonfocal Current Inpatient Medications Medications (Trade) Dose Ordered Sig/Joan Route Start Time Stop Time Status Last Admin Dose Admin Glucose (Glucose 40% Gel) 15-30 GRAMS 15 GRAMS... UD PRN PO 06/29/17 21:45 07/29/17 21:44 Glucose (Glucose Chew Tab) 4-8 Tablets 4 Tabl... UD PRN PO 06/29/17 21:45 07/29/17 21:44 Dextrose (Dextrose 50% 50ML Syringe) 25-50ML OF 50% DW IV FOR... UD PRN IV 06/29/17 21:45 07/29/17 21:44 Glucagon (Glucagon Inj) 1 mg UD PRN SQ 06/29/17 21:45 07/29/17 21:44 Insulin Glargine (Lantus Solostar Pen) If BSG <110, give 0 units... QAM SC 06/30/17 09:00 07/30/17 08:59 06/30/17 08:28 10 UNITS Acetaminophen (Tylenol Tab) 650 mg Q6 PRN PO 06/29/17 22:15 07/29/17 22:14 Albuterol (Ventolin Hfa Inhaler) 2 puffs Q4 PRN INH 06/29/17 22:15 07/29/17 22:14 Calcium Acetate (Phoslo Cap) 1,334 mg TIDM PO 06/30/17 07:30 07/30/17 07:59 Clonidine HCl (Catapres Tab) 0.1 mg BID PO 06/30/17 09:00 07/30/17 08:59 06/30/17 20:19 0.1 MG Diltiazem HCl (Cardizem Cd Cap) 120 mg DAILY PO 06/30/17 09:00 07/30/17 08:59 Albuterol/ Ipratropium (Duoneb) 3 ml QID PRN INH 06/29/17 22:15 07/29/17 22:14 Losartan Potassium (coZAAR TAB) 100 mg DAILY PO 06/30/17 09:00 07/30/17 08:59 Prednisolone Acetate (Pred Forte 1% Oph Susp) 1 drops DAILY OPL 06/30/17 09:00 07/30/17 08:59 06/30/17 08:26 1 DROPS Valacyclovir HCl (Valtrex Tab) 1,000 mg DAILY PO 06/30/17 09:00 07/30/17 08:59 06/30/17 08:27 1,000 MG Vitamin B Complex/ Vit C/Folic Acid (Nephrocaps) 1 cap DAILY PO 06/30/17 09:00 07/30/17 08:59 Miscellaneous Information (Order Awaiting Action) 1 ea QS N/A 06/30/17 00:00 07/30/17 00:00 Salmeterol Xinafoate/ Fluticasone (Advair Diskus 250/50 Inh) 1 puff BID INH 06/30/17 09:00 07/30/17 08:59 06/30/17 20:19 1 PUFF Pantoprazole Sodium 40 mg/ Dextrose 100 ml @ 20 mls/hr Q5H IV 06/30/17 01:00 07/30/17 00:59 07/01/17 04:42 20 MLS/HR Insulin Aspart (novoLOG ASPART) SLIDING SCALE If C... ACHS SC 06/30/17 16:15 07/29/17 22:59 Last 24 Hours Test 06/30/17 07:26 06/30/17 14:45 06/30/17 16:55 06/30/17 18:04 White Blood Count 6.87 K/uL Red Blood Count 1.77 M/uL Hemoglobin 6.0 g/dL 7.8 g/dL Hematocrit 18.5 % 24.4 % Mean Corpuscular Volume 104.5 fL Mean Corpuscular Hemoglobin 33.9 pg Mean Corpuscular Hemoglobin Concent 32.4 g/dl RDW Standard Deviation 84.9 fL RDW Coefficient of Variation 23.4 % Platelet Count 184 K/uL Mean Platelet Volume 9.1 fL Prothrombin Time 25.8 SECONDS Prothromb Time International Ratio 2.5 Sodium Level 140 mmol/L Potassium Level 4.5 mmol/L Chloride Level 101 mmol/L Carbon Dioxide Level 26 mmol/L Anion Gap 13.0 mmol/L Blood Urea Nitrogen 109 mg/dl Creatinine 9.12 mg/dl Est Creatinine Clear Calc Drug Dose 6.6 ml/min Estimated GFR () 4.6 Estimated GFR (Non- 3.9 BUN/Creatinine Ratio 11.9 Random Glucose 136 mg/dl Calcium Level 8.4 mg/dl Phosphorus Level 2.9 mg/dl Magnesium Level 2.0 mg/dl Bedside Glucose 124 mg/dl 135 mg/dl Test 06/30/17 19:22 07/01/17 04:44 Bedside Glucose 154 mg/dl Assessment & Plan ESRD-lungs cta, pt appears more comfortable today compared to yesterday. plan on dialysis again on tuesday and continue on a -- schedule. labs pending for this am. on a protonix drip.
[2017-07-01] MEDS: NEPHROCAPS PO SCH (07:09)
[2017-07-01] MEDS: CALCIUM ACETATE 667MG GELCAP PO SCH ×2 (07:09→11:18)
[2017-07-01] MEDS: INSULIN ASPART 100 UNITS/ML 3 ML PEN SC SCH ×2 (07:41→11:14)
[2017-07-01] MEDS: DILTIAZEM HCL 120 MG CAPCR PO SCH (07:42)
[2017-07-01] MEDS: FLUTICASONE/SALMETEROL 250/50 (ADVAIR) 14 PUFF/1 INHALER INH SCH (07:42)
[2017-07-01] MEDS: CLONIDINE HCL 0.1 MG TAB PO SCH (07:42)
[2017-07-01] MEDS: LOSARTAN POTASSIUM 50 MG TAB PO SCH (07:42)
[2017-07-01] MEDS: PrednisoLONE ACET 1% OP SUSP 5 ML BTL OPL SCH (07:43)
[2017-07-01] MEDS: INSULIN GLARGINE SOLOSTAR 100 UNITS/ML 3 ML PEN SC SCH (07:48)
[2017-07-01 08:05] LABS: INR 1.2 (0.9-1.1)
[2017-07-01 08:27] LABS: HEMATOCRIT 18.6 % (37-47); HEMOGLOBIN 6.3 g/dL (12.0-16.0)
[2017-07-01 08:44] LABS: CALCIUM 8.1 mg/dl (8.5-10.1); CREATININE 7.6 mg/dl (0.60-1.20)
[2017-07-01] MEDS ORDERED: ACETAMINOPHEN 325 MG TAB PO SCH (09:00)
[2017-07-01] MEDS ORDERED: EPOETIN ALFA 10,000 UNITS/ML VIAL IV. SCH (09:00)
[2017-07-01] MEDS ORDERED: LIDOCAINE HCL 2% 2 ML VIAL (20MG/ML) ONE (11:46)
[2017-07-01] MEDS ORDERED: PROPOFOL IV EMULSION 10 MG/ML 20 ML VIAL IV ONE ×2 (11:46→13:49)
[2017-07-01] MEDS ORDERED: PHENYLEPHRINE 100MCG/ML 5ML SYR ONE (13:49)
[2017-07-01] MEDS ORDERED: ONDANSETRON INJ 2 MG/ML 2 ML VIAL ONE (13:50)
[2017-07-01] MEDS ORDERED: HYDROmorphone INJ 0.5 MG/0.5 ML SYR ONE (13:50)
--- NOTE | 2017-07-01 13:55 | GI REPORT ---
Procedure Date: 07/01/2017 11:36 AM Procedure: Small bowel enteroscopy Indications: Melena Medicines: Monitored Anesthesia Care Complications: No immediate complications. Estimated blood loss: Minimal. Estimated Blood Loss: Estimated blood loss: Procedure: Pre-Anesthesia Assessment: - Pre-Anesthesia Assessment: - Prior to the procedure, a History and Physical was performed, and patient medications, allergies and sensitivities were reviewed. The patient's tolerance of previous anesthesia was reviewed. Please see [facility] [employer] for complete details. - The risks and benefits of the procedure and the sedation options and risks were discussed with the patient. All questions were answered and informed consent was obtained. - Patient identification and proposed procedure were verified prior to the procedure by the physician and the nurse. The procedure was verified in the pre-procedure area in the procedure room. After obtaining informed consent, the endoscope was passed carefully and meticuously under direct vision and only advanced when the lumen was clearly identified, C02 insuflation was utilized throughout the entirity of the procedure. Throughout the procedure, the patient's blood pressure, pulse, and oxygen saturations were monitored continuously. After obtaining informed consent, the endoscope was passed under direct vision. Throughout the procedure, the patient's blood pressure, pulse, and oxygen saturations were monitored continuously. The Scope was introduced through the mouth, and advanced to the proximal jejunum. After obtaining informed consent, the endoscope was passed under direct vision. Throughout the procedure, the patient's blood pressure, pulse, and oxygen saturations were monitored continuously.The upper GI endoscopy was technically difficult and complex due to excessive bleeding. The patient tolerated the procedure well. Findings: The examined esophagus was normal. Multiple localized, 3 mm non-bleeding erosions were found in the gastric body. There were no stigmata of recent bleeding. One non-bleeding superficial duodenal ulcer with a clean ulcer base (Alrs Class III) was found in the duodenal bulb. The lesion was 5 mm in largest dimension. Red blood was found in the third portion of the duodenum. Therefore, the scope was changed to PCF to enter deeper into small bowel. One oozing cratered duodenal ulcer with oozing hemorrhage (Lars Class Ib) was found in the third portion of the duodenum but was nearly 30% of circumfrence of the duodenum. The lesion was at least 10 mm in largest dimension. Area was successfully injected with 20 mL of a 1:10,000 solution of epinephrine for hemostasis. For hemostasis, ten hemostatic clips were successfully placed. Bleeding had stopped at the end of the maneuver. Impression: - Normal esophagus. - Non-bleeding erosive gastropathy. - One non-bleeding duodenal ulcer with a clean ulcer base (Lars Class III). - Blood in the third portion of the duodenum. - One oozing duodenal ulcer with oozing hemorrhage (Lars Class Ib). Injected. Clips were placed. - No specimens collected. Recommendation: - Return patient to ICU for ongoing care and transfer to [facility] [place] for possible IR embolization or surgical therapy. - Stat CBC, INR. Tranfuse additional 1u PRBCs and 1 Unit of Platelets. Correct INR if supratherapeutic. - Continue IV PPI Tuan Swanson MD 07/01/2017 1:54:15 PM This report has been signed electronically. Note Initiated On: 07/01/2017 11:36 AM I attest to the content of the Intraoperative Record and orders documented therein, exceptions below
--- NOTE | 2017-07-01 14:00 | Critical Care Consultation ---
Critical Care Consultation Date of Consultation: Jul 01, 2017. Attending Physician: Laverne Simpson DO Reason for Consultation: GI bleeding. History of Present Illness Dear Dr. Swanson, Dr. Simpson, Thank you for your kind referral of Mrs. Velasco to critical care service. This is 72-year-old female with a history of chronic kidney disease stage V, on hemodialysis Tuesday and Tuesday, history of COPD, hypertension, A. fib on Coumadin, has been evaluated in the past for GI bleed with EGD that did not show any source of bleeding, however the patient presented to the hospital with tarry stool and was taken today to the endoscopy lab. The patient underwent EGD which showed large duodenal ulcer actively bleeding, hemostasis was accomplished with epinephrine and multiple clips, Dr. swanson was concerned about further bleeding that can occur given her overall status with history of coagulopathy which was reversed to an INR of 1.2 and history of uremia which could alter her platelet function. The patient was planned to go to [facility] for interventional radiology angiography and embolization. Dr. swanson have spoken already with the gear design engineer at [facility]. The patient was accepted and awaiting bed availability. Meanwhile the patient will be transferred from the endoscopy suite to the ICU for close monitoring. When I interviewed the patient, she was just coming out of the sedation after the procedure, she is complaining of abdominal pain, nausea and vomited dark material appeared to be coffee-ground. She does not have any chest pain, no shortness of breath, she is maintaining her airways and she is on minimal oxygen with O2 sats of 100, her blood pressure on arrival was 180 systolic but the patient received phenylephrine for blood pressure control. The patient blood pressure dropped down slightly when she was on a propofol during the procedure. The patient received 2 units of blood the second unit running at the moment. And she is already on Protonix drip. Past Medical/Surgical History As above in the first section. Family History Diabetes mellitus FATHER MOTHER BROTHER FH: cancer BROTHER FH: heart disease FATHER Hypertension BROTHER Kidney disease BROTHER Social History Smoking Status: Former Smoker Drug Use: none Marital Status: Housing Status: lives with family Occupation Status: retired Allergies Coded Allergies: No Known Allergies (Verified , 06/16/17) Home Medications Scheduled Calcium Acetate (Phoslo 667 Mg), 2 CAP PO TIDM Camphor & Menthol (Sarna), 1 APPLN TD PRN Clonidine Hcl (Catapres), 0.1 MG PO BID Cyanocobalamin (Vitamin B-12), 1,000 MCG INJ MONTHLY Diltiazem Hcl Coated Beads (Diltiazem Hcl Er), 120 MG PO DAILY Ergocalciferol (Vitamin D 18788 Unit), 50,000 UNITS PO MONTHLY Fluticasone Prop/Salmeterol (Advair Diskus 250/50 60 Dose), 2 PUFF INH BID Furosemide (Furosemide), 40 MG PO DAILY Home O2 Therapy (Oxygen), 3 LITERS NA CONTINOUS Insulin Aspart (Novolog Flexpen), UNITS SQ UD Insulin Glargine (Basaglar Kwikpen), 26 UNITS PO QAM Losartan Potassium (Cozaar), 100 MG PO DAILY Prednisolone Acetate (Ophth) (Pred Forte 1% Oph), 1 DROPS OPL DAILY Umeclidinium [place] (Incruse Ellipta), 1 PUFF INH DAILY Valacyclovir Hcl (Valtrex), 1,000 MG PO DAILY Vitamin B Cmplx/Vitc/Folic Ac (Nephrocaps), 1 CAP PO DAILY Warfarin Sodium (Warfarin Sodium), 5 MG PO MWF Warfarin Sodium (Warfarin Sodium), 7.5 MG PO 4XWK Scheduled PRN Acetaminophen (Apap), 650 MG PO Q6 PRN for Pain Albuterol Hfa (Ventolin Hfa), 2 PUFFS INH Q4 PRN for SOB/Wheezing Ipratropium-Albuterol (Duoneb), 1 TREATMENT INH QID PRN for SOB/Wheezing Lidocaine-Prilocaine (Oafytbsqj-Zcgjdyushz-Puww 2.5-2.5 %), 1 APPLN TOP UD PRN for PRIOR TO DIALYSIS Loperamide Hcl (Loperamide Hcl), 2 MG PO QID PRN for Diarrhea Miscellaneous Medications Epoetin Hakan (Procrit) Current Inpatient Medications Current Inpatient Medications Medications (Trade) Dose Ordered Sig/Joan Route Start Time Stop Time Status Last Admin Dose Admin Glucose (Glucose 40% Gel) 15-30 GRAMS 15 GRAMS... UD PRN PO 06/29/17 21:45 07/29/17 21:44 Glucose (Glucose Chew Tab) 4-8 Tablets 4 Tabl... UD PRN PO 4/4/18 21:45 07/29/17 21:44 Dextrose (Dextrose 50% 50ML Syringe) 25-50ML OF 50% DW IV FOR... UD PRN IV 06/29/17 21:45 07/29/17 21:44 Glucagon (Glucagon Inj) 1 mg UD PRN SQ 06/29/17 21:45 07/29/17 21:44 Insulin Glargine (Lantus Solostar Pen) If BSG <110, give 0 units... QAM SC 06/30/17 09:00 07/30/17 08:59 07/01/17 07:48 10 UNITS Acetaminophen (Tylenol Tab) 650 mg Q6 PRN PO 06/29/17 22:15 07/29/17 22:14 Albuterol (Ventolin Hfa Inhaler) 2 puffs Q4 PRN INH 06/29/17 22:15 07/29/17 22:14 Calcium Acetate (Phoslo Cap) 1,334 mg TIDM PO 06/30/17 07:30 07/30/17 07:59 Clonidine HCl (Catapres Tab) 0.1 mg BID PO 06/30/17 09:00 07/30/17 08:59 07/01/17 07:42 0.1 MG Diltiazem HCl (Cardizem Cd Cap) 120 mg DAILY PO 06/30/17 09:00 07/30/17 08:59 07/01/17 07:42 120 MG Albuterol/ Ipratropium (Duoneb) 3 ml QID PRN INH 06/29/17 22:15 07/29/17 22:14 07/01/17 10:35 3 ML Losartan Potassium (coZAAR TAB) 100 mg DAILY PO 06/30/17 09:00 07/30/17 08:59 07/01/17 07:42 100 MG Prednisolone Acetate (Pred Forte 1% Oph Susp) 1 drops DAILY OPL 06/30/17 09:00 07/30/17 08:59 07/01/17 07:43 1 DROPS Valacyclovir HCl (Valtrex Tab) 1,000 mg DAILY PO 06/30/17 09:00 07/30/17 08:59 07/01/17 07:43 1,000 MG Vitamin B Complex/ Vit C/Folic Acid (Nephrocaps) 1 cap DAILY PO 06/30/17 09:00 07/30/17 08:59 Miscellaneous Information (Order Awaiting Action) 1 ea QS N/A 06/30/17 00:00 07/30/17 00:00 Salmeterol Xinafoate/ Fluticasone (Advair Diskus 250/50 Inh) 1 puff BID INH 06/30/17 09:00 07/30/17 08:59 07/01/17 07:42 1 PUFF Pantoprazole Sodium 40 mg/ Dextrose 100 ml @ 20 mls/hr Q5H IV 06/30/17 01:00 07/30/17 00:59 07/01/17 10:32 20 MLS/HR Insulin Aspart (novoLOG ASPART) SLIDING SCALE If C... ACHS SC 06/30/17 16:15 07/29/17 22:59 07/01/17 11:14 1 UNITS Acetaminophen (Tylenol Tab) 650 mg ONE PO 07/01/17 09:00 07/01/17 14:00 07/01/17 09:11 650 MG Diphenhydramine HCl (Benadryl Cap) 25 mg 0900 PO 07/01/17 09:00 07/01/17 14:00 07/01/17 09:11 25 MG Epoetin Hakan (Procrit Inj) 10,000 units 0900 IV. 07/02/17 09:00 07/02/17 14:00 Review of Systems Constitutional: No fever, No chills, No sweats, No weight loss, No weakness, No fatigue, No problem reported ENT: No hearing loss, No unusual epistaxis, No nasal symptoms, No sore throat, No tinnitus, No dental problems, No trouble swallowing, No problem reported Respiratory: No cough, No sputum, No wheezing, No shortness of breath, No dyspnea on exertion, No dyspnea at rest, No hemoptysis, No problem reported Cardiovascular: No chest pain, No orthopnea, No PND, No edema, No claudication , No palpitations, No problem reported Abdomen: + pain, + nausea, + vomiting Neurologic: No memory loss, No paralysis, No weakness, No numbness/tingling, No vertigo, No balance problems, No problem reported Psychiatric: No depression symptoms, No anhedonism, No anxiety, No insomnia, No substance abuse, No problem reported Endocrine: No fatigue, No excessive thirst, No excessive urination, No problem reported Integumentary: No rash, No itch, No new/changing skin lesions, No color change , No bleeding, No problem reported Allergic / Immunologic: No environmental allergies, No seasonal allergies, No pet sensitivities, No food allergies, No hives, No frequent infections, No poor healing, No prolonged convalescence, No problem reported Physical Exam Date Time Temp Pulse Resp B/P (MAP) Pulse Ox O2 Delivery O2 Flow Rate FiO2 07/01/17 11:36 37.1 82 20 100/44 (62) 99 Nasal Cannula 3 07/01/17 11:10 37.0 83 19 109/46 100 3.0 07/01/17 10:40 36.9 81 20 110/64 100 3.0 07/01/17 10:35 83 14 100 Nasal Cannula 3.0 07/01/17 10:25 36.9 82 22 107/63 100 3.0 07/01/17 08:00 Nasal Cannula 3.0 07/01/17 07:30 36.6 86 18 132/69 (90) 99 07/01/17 04:00 Nasal Cannula 3.0 07/01/17 03:54 37.0 78 18 110/61 (77) 100 07/01/17 00:03 37.1 77 18 109/57 (74) 100 06/30/17 23:59 Nasal Cannula 3.0 06/30/17 20:00 Nasal Cannula 3.0 06/30/17 19:16 37.1 87 18 117/66 (83) 100 Nasal Cannula 3.0 06/30/17 18:15 88 19 138/72 (94) 100 Nasal Cannula 4.0 06/30/17 18:00 88 18 137/73 (94) 100 Nasal Cannula 4.0 06/30/17 17:45 88 16 129/72 (91) 100 Nasal Cannula 4.0 06/30/17 17:30 82 18 154/62 (92) 100 Nasal Cannula 4.0 06/30/17 17:15 85 17 131/66 (87) 100 Nasal Cannula 4.0 06/30/17 16:00 Nasal Cannula 4.0 06/30/17 15:14 36.7 90 20 139/67 (91) 97 Nasal Cannula 4.0 06/30/17 14:37 37.0 87 26 133/71 (91) 91 Nasal Cannula 4.0 06/30/17 14:10 36.5 78 100/50 (67) 06/30/17 14:00 78 100/50 General Appearance: uncomfortable Eyes: EOMI ENT: normal throat exam Neck: trachea midline Respiratory: breath sounds normal Cardiovasular: normal S1S2, no M/G/R, other (A. fib) Abdomen: other (Diffuse tenderness merely periumbilical.) Lower Extremities: no edema Neuro: alert, oriented x 3, normal motor exam Psychiatric: other (Lethargic) Laboratory Results Last 24 Hours Test 06/30/17 14:45 06/30/17 16:55 06/30/17 18:04 06/30/17 19:22 Bedside Glucose 124 mg/dl 135 mg/dl 154 mg/dl Hemoglobin 7.8 g/dL Hematocrit 24.4 % Test 07/01/17 06:42 07/01/17 07:14 07/01/17 11:10 07/01/17 13:10 Bedside Glucose 142 mg/dl 174 mg/dl Hemoglobin 6.3 g/dL Hematocrit 18.6 % Prothrombin Time 12.8 SECONDS Prothromb Time International Ratio 1.2 Sodium Level 136 mmol/L Potassium Level 5.0 mmol/L Chloride Level 99 mmol/L Carbon Dioxide Level 24 mmol/L Anion Gap 13.0 mmol/L Blood Urea Nitrogen 107 mg/dl Creatinine 7.60 mg/dl Est Creatinine Clear Calc Drug Dose 7.9 ml/min Estimated GFR () 5.7 Estimated GFR (Non- 4.9 BUN/Creatinine Ratio 14.1 Random Glucose 132 mg/dl Calcium Level 8.1 mg/dl Diagnostic Results Most recent hematocrit was 18, previously was 24. Platelet count is 186, BUN/ creatinine patient is end-stage renal disease with creatinine of 7.6 and her baseline predialysis was 9. Potassium has been maintained at 5. Bicarb is 24. Chest x-ray with cardiomegaly but there is no pulmonary vascular congestion or infiltrate. KUB is nonspecific pattern. EGD findings discussed with Dr. swanson, large duodenal ulcer with 10 clips placed topical as well as 25 mL total of epinephrine were injected of 1-10,000 concentration. Assessment & Plan 1. Active upper GI bleed, duodenal ulcers, hemostasis has been achieved with EGD, the patient will require interventional radiology angiography and embolization. Appreciate Dr. swanson input. 2. End-stage renal disease on hemodialysis Tuesday and Tuesday. Currently not acidotic, CO2 of 24 and creatinine of 7.6, her baseline predialysis is 9, potassium of 5. 3. History of A. fib used to be on Coumadin, INR is 1.2 after reversal with vitamin K. 4. Anemia due to acute upper GI bleed, most recent hematocrit is 18, receiving 2 units of blood the second unit is running. 5. History of hypertension. 6. History of adrenal adenoma. Plan: 1. Continue with a second unit of blood. 2. Protonix drip. 3. Appreciate GI input. 4. Patient will be transferred to [facility] for IR embolization. 5. Discussed with Dr. Simpson and Dr. swanson. 6. Dilaudid for pain control. 7. Zofran for nausea. 8. Her platelet count is 186 appeared to be adequate, I would hold off on DDAVP. 9. No need for further treatment to reverse coagulopathy, INR is 1.2. 10. We will check hematocrit, INR, K, on the i-STAT. 11. Awaiting transfer to [facility]. 12. The patient will be transferred by [facility]. Case discussed with the staff and details. Critical care time spent with the patient was 45 minutes.
[2017-07-01 14:12] LABS: HEMATOCRIT 23.7 % (37-47); HEMOGLOBIN 8.1 g/dL (12.0-16.0); MEAN CELL VOLUME 92.6 fL (80-100); MEAN CORPUSCULAR HEMOGLOBIN 31.6 pg (25-34); MEAN CORPUSCULAR HGB CONC 34.2 g/dl (32-36); MEAN PLATELET VOLUME 9.5 fL (7.4-10.4); NUCLEATED RED BLOOD CELL ABS 0.06 K/uL (0-0); PLATELET COUNT 235 K/uL (130-400); RED CELL DISTRIBUTION WIDTH CV 22.3 % (11.5-14.5); RED CELL DISTRIBUTION WIDTH SD 64.4 fL (36.4-46.3); WHITE BLOOD COUNT 29.37 K/uL (4.8-10.8)
[2017-07-01] MEDS ORDERED: PROMETHAZINE HCL INJ 12.5 MG in SODIUM CHLORIDE 0.9% 50ML 50 ML IV ONE (14:15)
[2017-07-01 14:29] LABS: INR 1.1 (0.9-1.1)
--- NOTE | 2017-07-01 14:35 | Anesthesiology Progress Note ---
Anesthesia Post Op Note Date & Time Jul 01, 2017 at 14:35 Vital Signs Pain Intensity: 0.0 Vital Signs Past 12 Hours Date Time Temp Pulse Resp B/P (MAP) Pulse Ox O2 Delivery O2 Flow Rate FiO2 07/01/17 11:36 37.1 82 20 100/44 (62) 99 Nasal Cannula 3 07/01/17 11:10 37.0 83 19 109/46 100 3.0 07/01/17 10:40 36.9 81 20 110/64 100 3.0 07/01/17 10:35 83 14 100 Nasal Cannula 3.0 07/01/17 10:25 36.9 82 22 107/63 100 3.0 07/01/17 08:00 Nasal Cannula 3.0 07/01/17 07:30 36.6 86 18 132/69 (90) 99 07/01/17 04:00 Nasal Cannula 3.0 07/01/17 03:54 37.0 78 18 110/61 (77) 100 Notes Mental Status: alert / awake / arousable, participated in evaluation Pt Amnestic to Procedure: Yes Nausea / Vomiting: adequately controlled Pain: adequately controlled Airway Patency, RR, SpO2: stable & adequate BP & HR: stable & adequate Hydration State: stable & adequate Anesthetic Complications: no major complications apparent
[2017-07-01 14:38] LABS: BASO % 0.3 %; BASO ABS # 0.08 K/uL (0-0.2); EOS % 0.6 %; EOS ABS # 0.18 K/uL (0-0.5); LYMPH % 5.8 %; LYMPH ABS # 1.71 K/uL (1.2-3.4); MONO % 2.9 %; MONO ABS # 0.85 K/uL (0.11-0.59); NEUT % 89.7 %; NEUT ABS # 26.35 K/uL (1.4-6.5)
--- NOTE | 2017-07-01 15:10 | Discharge Summary ---
Discharge Summary Date of Service Jul 01, 2017. Discharge Summary Admission Date: Jun 29, 2017 at 21:39 Discharge Date: Jul 01, 2017 Discharge Disposition: Acute care facility Consultations: [facility] Admission Information HPI (per Admitting provider): Patient is a 72-year-old female with a past medical history of anemia of chronic disease, ESRD (on dialysis), paroxysmal A. fib (on Coumadin), COPD (on 3L NC at home), DM 2, diastolic CHF and other medical problems listed below who presents with multiple episodes of black, tarry stool beginning this morning. Patient endorses about 5 episodes of black tarry stool today that were loose. Denies any bright red blood or clots. Associated with SOB. Patient is on 3L of oxygen at home chronically but states she felt more short of breath than usual. Denies lightheadedness, visual changes or chest pain. Denies any fever , chills, headache, near syncope, abdominal pain, nausea, vomiting or worsening LE swelling. Does not make urine. Receives dialysis on a //Tue schedule and is due tomorrow. Was recently admitted from June 16- with a similar description of melena and shortness of breath. Hemoglobin was 5 at that time and patient required 4 units PRBCs. Underwent an EGD that did not show active bleeding and was discharged with plans for an outpatient colonoscopy. Last colonoscopy was in April 2015 and showed tubular adenoma and for plastic polyps. In ED, patient was found to be saturating well on 3L nasal cannula. Hemoglobin is 8.1 today, which is close to baseline. INR is 2.4. Was started on a Protonix bolus and drip. Physical Exam (per Admitting): General Appearance: WD/WN, no apparent distress Head: normocephalic, atraumatic Eyes: normal inspection, PERRL, sclerae normal ENT: normal ENT inspection, hearing grossly normal, pharynx normal (Dry mucous membranes) Neck: supple, thyroid normal, trachea midline Respiratory/Chest: chest non-tender, no respiratory distress, no accessory muscle use, + wheezing (Scattered expiratory wheezes) Cardiovascular: regular rate, rhythm, no murmur, normal peripheral pulses Abdomen/GI: non tender, soft, no organomegaly Back: normal inspection Extremities/Musculoskelatal: normal inspection, no calf tenderness, non- tender Neurologic/Psych: no motor/sensory deficits, alert, normal mood/affect, oriented x 3 Skin: warm/dry, + pallor Hospital Course 72-year-old female with chronic anemia of 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 Patient represents with multiple episodes of melena and had some overnight per nursing staff. Patient underwent hemodialysis with 2 units of blood transfusion today and is quite lethargic post dialysis session. She is unable to give an accurate history at this time but is easily awakened and is appropriate when asked questions. She denies any pain at this time. 1. Acute blood loss anemia secondary to GI bleed-GI planning for inpatient upper endoscopy in a.m. Patient received 2 units of blood today without incident. Vitamin K given to reverse warfarin. Repeat H&H is pending. Appreciate GI recommendations. 2. Chronic respiratory failure in setting of COPD-patient is at baseline which is 3 L nasal cannula all the time. No respiratory distress. Continue home inhalers. 3. ESRD on dialysis-received dialysis today with 1 L taken off. Plan for dialysis again tomorrow. Appreciate nephrology involvement. 4. Diabetes type 2-insulin sliding scale with Lantus and carb coverage while patient is in hospital. 5. Paroxysmal A. fib-Coumadin held-continue diltiazem. 6. Hypertension-stable continue losartan, clonidine. 7. HSV iridocyclitis-continue Valtrex and prednisolone eyedrops. DVT prophylaxis SCDs as chemoprophylaxis contraindicated in setting of GI bleed CODE STATUS full Disposition continue telemetry. Plan EGD as an inpatient tomorrow Laverne Simpson DO [facility] hospitalist Total time spent on discharge = 60 minutes This includes examination of the patient, discharge planning, medication reconciliation, and communication with other providers. Discharge Instructions [facility] [address] [place] [address] Discharge Medical Patient Name: Flaquita Velasco Unit Number: [id number] Date of : 1945 Patient Status: Admitted Inpatient Attending Doctor: Laverne Simpson DO DI: Medical v5 Discharge Instructions Date of Service Jul 01, 2017. Admission Reason for Admission: Gi Bleed, Sob Discharge Discharge Diagnosis / Problem: GI bleed, ESRD on hemodialysis Discharge Goals Goal(s): Prevent Disease Progression Activity Recommendations Activity Limitations: per Instructions/Follow-up section . Instructions / Follow-Up Instructions / Follow-Up Please follow-up with your primary care physician within one week of discharge from accepting facility. It was a pleasure taking care of you! Call if you have any questions or problems. You can reach a [facility] hospitalist on duty at [facility] 24 hours a day by calling [phone]. Take care of yourself. Laverne Simpson DO [facility] Hospitalist Current Hospital Diet Patient's current hospital diet: Renal Diet, Clear Liquid Diet Discharge Diet Recommended Diet: Clear Liquid Diet, Renal Diet Procedures Procedures Performed: EGD WITH INJECTION AND CLIPS Pending Studies Studies pending at discharge: no Laboratory Results Hemoglobin A1c Test 06/17/17 05:15 Range/Units Estimated Average Glucose 100 mg/dl Hemoglobin A1c 5.1 4.5-5.6 % Medical Emergencies . Who to Call and When: Medical Emergencies: If at any time you feel your situation is an emergency, please call 911 immediately. . Non-Emergent Contact Non-Emergency issues call your: Primary Care Provider . . "Provider Documentation" section prepared by Laverne Simpson. . Additional Copies To Noam Armando M.D.
[2017-07-02] MEDS ORDERED: EPOETIN ALFA 10,000 UNITS/ML VIAL IV. SCH (09:00)
== END 2017-07-01 14:40 | disposition short-term general hospital (02) | DRG 377 ==
LOC: C.EDC 18:32 → EDBD 18:32 → C.2T 21:39 → ENRESERV 21:56 → C.MSICU 07-01 13:36
PROVIDERS: ADMIT Internal Medicine; ATTEND Hospitalist
PROC: 0DJ08ZZ Inspection of Upper Intestinal Tract, Via Natural or Artificial Opening Endoscopic (ICD-10-PCS; principal; 2017-07-01 11:29)
DX: K92.2 Gastrointestinal hemorrhage, unspecified (principal); N18.6 End stage renal disease; J96.11 Chronic respiratory failure with hypoxia; I50.30 Unspecified diastolic (congestive) heart failure; B00.51 Herpesviral iridocyclitis; I13.2 Hypertensive heart and chronic kidney disease with heart failure and with stage 5 chronic kidney disease, or end stage renal disease; J44.9 Chronic obstructive pulmonary disease, unspecified; E11.22 Type 2 diabetes mellitus with diabetic chronic kidney disease; E78.5 Hyperlipidemia, unspecified; I34.0 Nonrheumatic mitral (valve) insufficiency; E66.9 Obesity, unspecified; M19.90 Unspecified osteoarthritis, unspecified site; I48.0 Paroxysmal atrial fibrillation; D63.8 Anemia in other chronic diseases classified elsewhere; Z79.4 Long term (current) use of insulin; Z99.81 Dependence on supplemental oxygen; Z90.49 Acquired absence of other specified parts of digestive tract; Z87.891 Personal history of nicotine dependence; Z99.2 Dependence on renal dialysis; Z90.710 Acquired absence of both cervix and uterus; Z79.01 Long term (current) use of anticoagulants; Z68.32 Body mass index [BMI] 32.0-32.9, adult; Z80.9 Family history of malignant neoplasm, unspecified; Z83.3 Family history of diabetes mellitus; Z82.49 Family history of ischemic heart disease and other diseases of the circulatory system; Z84.1 Family history of disorders of kidney and ureter

== ENCOUNTER 2018-09-26 13:16 | Inpatient (IN) ==
[2018-09-26] MEDS ORDERED: ONDANSETRON INJ 2 MG/ML 2 ML VIAL IV STA (14:06)
[2018-09-26] MEDS ORDERED: SODIUM CHLORIDE 0.9% 1000ML 1,000 ML IV SCH (14:15)
[2018-09-26 14:42] LABS: Basophils # (auto) 0.03 K/uL (0-0.2); Basophils % (auto) 0.4 %; Eosinophils # (auto) 0.09 K/uL (0-0.5); Eosinophils % (auto) 1.3 %; Hemoglobin 10.4 g/dL (12.0-16.0); Immature Granulocytes # (auto) 0.04 K/uL (0.00-0.02); Immature Granulocytes % (auto) 0.6 %; Lymphocytes % (auto) 7.4 %; Mean Corpuscular Hgb Conc 34.7 g/dL (32-36); Mean Corpuscular Volume 114.9 fL (80-100); Mean Platelet Volume 10.4 fL (7.4-10.4); Monocytes # (auto) 0.59 K/uL (0.11-0.59); Monocytes % (auto) 8.8 %; Neutrophils # (auto) 5.49 K/uL (1.4-6.5); Neutrophils % (auto) 81.5 %; Platelet Count 165 K/uL (130-400); RDW Coefficient of Variation 13.1 % (11.5-14.5); RDW Standard Deviation 54.3 fL (36.4-46.3); Red Blood Count 2.61 M/uL (4.2-5.4); White Blood Count 6.74 K/uL (4.8-10.8)
[2018-09-26] MEDS ORDERED: SODIUM CHLORIDE 0.9% 1000ML 500 ML IV ONE (15:00)
[2018-09-26 15:08] LABS: Macrocytosis Present
[2018-09-26 15:23] LABS: Albumin Globulin Ratio 0.9 (0.9-2); Albumin Level 3.2 gm/dl (3.4-5.0); BUN Creatinine Ratio 3.4 (10-20); Bilirubin,Total 0.5 mg/dl (0.2-1); Calcium 9.2 mg/dl (8.5-10.1); Creatinine Clr Calc Pharmacy 11.6 ml/min; Est GFR (African American) 9.3; Globulin 3.4 gm/dl (2.5-4.0); Total Protein 6.6 gm/dl (6.4-8.2)
[2018-09-26 16:04] LABS: Potassium 3.3 mmol/L (3.5-5.1)
--- NOTE | 2018-09-26 16:09 | CT Scan Report ---
CT OF THE ABDOMEN AND PELVIS WITHOUT CONTRAST CLINICAL HISTORY: Left lower quadrant abdominal pain. COMPARISON STUDY: CT of the abdomen and pelvis February 09, 2017. Abdominal series June 16, 2017. TECHNIQUE: Axial images of the abdomen and pelvis were obtained without IV contrast. Images were revi ewed in the axial, sagittal, and coronal planes. Automated exposure control was utilized for the laura dy. A dose lowering technique was utilized adhering to the principles of ALARA. FINDINGS: Splenomegaly is unchanged. A few hypodense splenic lesions are unchanged since CT of [facility] 2016. Therefore, these are benign. Evaluation of the abdomen and pelvis is suboptimal on this unenhanced examination. Portal within the expected region of the gastroduodenal artery are noted. Mar ked bilateral renal atrophy is noted without hydronephrosis. A lesion within the lower pole of the ri ght kidney has decreased in size since prior exam. This favors a hyperdense cyst. There is no evidenc e for a bowel obstruction. A moderate amount of stool is noted within the colon. There is no pneumato sis, free air or portal venous gas. No suspicious osseous lesions are noted. The caliber of small and large bowel are normal. The left adrenal gland lesion is unchanged. This is benign given stability. A few splenules are noted. There is no biliary or pancreatic ductal dilatation. Sensitivity for detec tion of mucosal lesions is diminished given CT technique. Suspected small bowel diverticula are noted without evidence for diverticulitis. IMPRESSION: 1. No acute process within the abdomen or pelvis on unenhanced exam. 2. Moderate amount of stool within the colon. No bowel obstruction. 3. Marked bilateral renal atrophy which is unchanged. 4. Stable mild splenomegaly. Electronically signed by: Vicente Tapia M.D. 09/26/2018 4:07 PM
[2018-09-26 16:13] LABS: Partial Thromboplastin Time 26.7 Seconds (21.0-31.0); Prothrombin Time 9.9 Seconds (9.0-12.0)
--- NOTE | 2018-09-26 17:26 | XRay Report ---
XR chest 1V portable CLINICAL HISTORY: cough dyspnea COMPARISON STUDY: 06/29/2017 FINDINGS: Interstitial prominence of the right and to lesser extent left base. No evidence for consol idative infiltrate. Mid and upper lungs are clear. IMPRESSION: Interstitial infiltrative changes right and to a lesser extent left base. The above report was generated using voice recognition software. It may contain grammatical, syntax or spelling errors. Electronically signed by: Stevo Sanchez M.D. 09/26/2018 5:25 PM
[2018-09-26] MEDS ORDERED: CEFEPIME 1,000 MG in SYRINGE 0 ML IV STA (17:37)
[2018-09-26] MEDS ORDERED: LEVOFLOXACIN/D5W 750 MG/150 ML BAG IV SCH (17:45)
--- NOTE | 2018-09-26 19:02 | History & Physical Report ---
Date of Service September 26, 2018 Assessment & Plan (1) Pneumonia: This is a 73-year-old female who has a significant past medical history of ESRD on HD //Tue, T2DM, COPD with chronic hypoxic respiratory failure on 3 L of O2 via NC, PAF off anticoagulation, history of GI bleed secondary to gastritis and duodenal ulcer, diastolic CHF, HTN, HLD, anemia of end-stage renal disease, history of tobacco abuse who presents to [facility] secondary to lethargy, fatigue, cough x1.5 weeks. CXR concerning for RLL infiltrate She is afebrile, wbc WNL H/H stable at 10.4/30.3, Bun/Cr 17/5.03 CT Abd/Pelvis concerning for moderate stool in colon but otherwise no acute abnormality Pt does not meet Sirs/Sepsis criteria In ED pt received IV Levaquin and IV cefepime for PNA. admit to med/surg telemetry continue IV antibiotics Levaquin - dosed per pharmacy duoneb QID Incentive spirometry Consult PT/OT/ST obtain procalcitonin (2) COPD, moderate: no acute exac continue radha gallardo (3) ESRD (end stage renal disease) on dialysis: Hemodialysis Tuesday//Tuesday Received HD today with 1.3 L removed Consult nephrology Renal diet/ Fluid restriction 1.2L (4) Anemia of chronic disease: H/H stable at 10.4 and 30.3 Receives Procrit injections at HD Monitor CBC (5) History of GI bleed: hx of duodenal ulcer and gastritis Patient follows with [facility] Per recent EGD report patient to be on PPI indefinitely Given report of dark BM, along with epigastric tenderness on exam will initiate Protonix 40 mg daily (6) DM type 2 (diabetes mellitus, type 2): Last A1c 6.9 03/2018 Obtain A1c in a.m. Patient takes Lantus 26 units in a.m. along with NovoLog AC and at bedtime Reduce Lantus to 0 to 15 units based off BSG and titrate accordingly Novolog per protocol (7) A-fib: Rate and rhythm controlled on diltiazem Off of anticoagulation secondary to history of GI bleed (8) Diastolic CHF: Euvolemic on exam Dialysis for volume control Continue losartan; off beta-mariana due to hypotension Monitor daily weights and strict I's and O's (9) HTN (hypertension): Blood pressure elevated in ED, likely due to missed medications Continue hydralazine and losartan this evening along with diltiazem (10) DVT prophylaxis: SCDS/TEDS - pt with report of Large Dark/Black BM but FOBT negative in ED monitor cbc if stable consider adding SQ heparin Disposition: admit to med/surg tele, discharge disposition to be determined Follow up: PCP Dr. Armando upon discharge Patient was seen and examined in collaboration with Dr. Simpson, please see addendum Starting 09/27/18 patient will be under the care of Dr. Chaudhry History of Present Illness Chief Complaint: Lethargy, increased fatigue, cough x1.5 weeks. Primary Care Provider: Noam Armando MD This is a 73-year-old female who has a significant past medical history of ESRD on HD //Tue, T2DM, COPD with chronic hypoxic respiratory failure on 3 L of O2 via NC, PAF off anticoagulation, history of GI bleed secondary to gastritis and duodenal ulcer, diastolic CHF, HTN, HLD, anemia of end-stage renal disease, history of tobacco abuse who presents to [facility] secondary to lethargy, fatigue, cough x1.5 weeks. Son-in-law at bedside. Patient was at hemodialysis today and had 1.3 L removed. She was seen by forester aide Dr. Reed and given above symptoms as well as complaint of large black bowel movement 2 days ago it was recommended to be seen in ED for further evaluation. She complains of cough that is dry for approximately 1 week, worse lying down. She also elicits to rhinorrhea, itchy watery eyes, increased shortness of breath at rest, weakness and fatigue. She is not requiring increased oxygen. She denies any fever, chills, sweats, lightheadedness, dizziness, chest pain, palpitations, hemoptysis, nausea, emesis, abdominal pain, diarrhea. She is an anuric given hemodialysis. Her appetite is normal. She denies any weight loss or weight gain. She ambulates with walker at baseline and was able to ambulate in and out of the dialysis center today. She is able to do ADLs on her own. She continues to be able to do the above but just overall feels weak and tired. Allergies Allergy/AdvReac Type Severity Reaction Status Date / Time No Known Allergies Allergy Verified 09/26/18 14:06 Home Medications Home Medications Medication Instructions Recorded Confirmed Type B complex-vitamin C-folic acid 0.8 mg PO QDL 09/26/18 09/26/18 History [Arabella-Tika] calcium acetate 1,334 mg PO TIDM 09/26/18 09/26/18 History diltiazem HCl 120 mg PO QAM 09/26/18 09/26/18 History ergocalciferol (vitamin D2) 50,000 unit PO MONTHLY 09/26/18 09/26/18 History fluticasone propion-salmeterol 1 inh INHALATION BID 09/26/18 09/26/18 History [Advair Diskus] hydralazine 75 mg PO BID 09/26/18 09/26/18 History insulin aspart U-100 [Novolog 0 unit SUBCUT UD 09/26/18 09/26/18 History Flexpen U-100 Insulin] insulin glargine [Basaglar KwikPen 26 unit SUBCUT QAM 09/26/18 09/26/18 History U-100 Insulin] ipratropium-albuterol 3 ml INHALATION QID PRN 09/26/18 09/26/18 History losartan 100 mg PO HS 09/26/18 09/26/18 History prednisolone acetate 1 drp OPL DAILY 09/26/18 09/26/18 History valacyclovir 1,000 mg PO QAM 09/26/18 09/26/18 History Past Med/Surg History Medical History DM type 2 (diabetes mellitus, type 2) (Chronic) Adrenal adenoma (Chronic) Osteoarthritis (Chronic) Psoriasis (Chronic) Dyslipidemia (Chronic) Anemia of chronic disease (Chronic) ESRD (end stage renal disease) on dialysis (Chronic) COPD, moderate (Chronic) On 08/19/15 09:47 Mare Whyte wrote "2L O2 at home" AV fistula (Chronic) Pancreatic cyst (Chronic) Chronic respiratory failure with hypoxia (Chronic) H/O cardiovascular stress test (Chronic) "05/2013 - negative for ischemia" Renal cyst (Chronic) Herpes simplex iridocyclitis (Chronic) Moderate mitral regurgitation (Chronic) "moderate to severe on 12/2015 echo" On 01/13/16 15:17 Blanca Chan wrote "echo 06/2015 - calcified mitral valve, moderate MR" Diastolic CHF (Chronic) HTN (hypertension) (Chronic) History of Helicobacter pylori infection (Chronic) A-fib (Chronic) "paroxysmal" SOB (shortness of breath) (Acute) GI bleed (Acute) Surgical History S/P ASH (total abdominal hysterectomy) (Chronic) "For Fibroids " S/P left oophorectomy (Chronic) "1981" S/P cholecystectomy (Chronic) "1971" S/P appendectomy (Chronic) "1971" H/O colonoscopy (Chronic) "2005, hyperplastic polyps repeat in 10 years " History of cataract surgery (Chronic) H/O nasal polypectomy (Chronic) Family History Father Myocardial infarction, Onset Age: 64 Mother , 87 Alzheimer disease Social History Preferred Language: Jamaican Communication Ability: Effective 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 Physical Exam Physical Exam: Gen: Elderly, F, chronically ill, lying in bed, NAD, sitting up in bed, pleasant, conversing easily Head: Normocephalic, Atraumatic Eyes: periorbital edema, Sclera normal, no conjunctival injection, PERRLA, EOMI ENT: Gross hearing intact, normal pharynx, mucous membranes moist Neck: supple, no adenopathy, No JVD, no bruit, Resp: Clear to auscultation b/l with decreased sounds RLL, no wheeze, rales, rhonchi. Normal insp/exp effort, no accessory muscle use, on 3L O2 via NC CV: Regular rate, regular rhythm, soft 1/6 ANABELA noted RUSB, no rub, gallop, or ectopy Abd: +BS x 4, soft, +epigastric tenderness, nondistended, no rebound, guarding or rigidity Musculoskeletal: moves extremities active rom x 4, strength intact, good under trimmer strength Extremities: No edema bilaterally, LUE AV fistula Skin: warm, moist, no rash, negative turgor, cap refill < 2sec Neuro: Alert and oriented x 3, speech normal, good mood/affect, cran nerve 2-12 intact grossly : deferred Results & Data Vital Signs (Past 12 Hours) Vital Signs Temp Pulse Resp BP Pulse Ox 09/26/18 18:29 36.7 C 09/26/18 18:20 72 22 96 09/26/18 18:10 71 27 H 96 09/26/18 18:00 63 23 96 09/26/18 17:50 65 24 96 09/26/18 17:40 68 19 98 09/26/18 17:30 67 26 H 166/81 H 96 09/26/18 17:20 71 24 96 09/26/18 17:10 67 18 97 09/26/18 17:01 66 23 174/78 H 96 09/26/18 17:00 66 20 96 09/26/18 16:50 69 16 95 09/26/18 16:40 69 20 96 09/26/18 16:32 75 21 94 09/26/18 16:31 70 23 190/75 H 94 09/26/18 15:40 99 09/26/18 15:31 72 25 H 162/65 H 98 09/26/18 15:30 72 21 96 09/26/18 15:20 70 23 100 09/26/18 15:10 69 27 H 09/26/18 15:00 68 19 165/74 H 100 09/26/18 14:50 66 95 09/26/18 14:42 69 94 09/26/18 14:32 97 09/26/18 14:30 69 181/90 H 94 09/26/18 13:22 36.9 C 79 20 143/62 H 90 Laboratory Results Short CBC 09/26/18 Range/Units 14:31 WBC 6.74 (4.8-10.8) K/uL Hgb 10.4 L (12.0-16.0) g/dL Hct 30.0 L (37-47) % Plt Count 165 (130-400) K/uL BMP 09/26/18 09/26/18 14:31 15:30 Sodium 133 L Potassium 3.3 L Chloride 97 L Carbon Dioxide 27 BUN 17 Creatinine 5.03 H* Glucose 207 H Calcium 9.2 Liver Function 09/26/18 09/26/18 Range/Units 14:31 15:30 Total Bilirubin 0.5 (0.2-1) mg/dl AST 13 L (15-37) U/L ALT 22 (12-78) U/L Alkaline Phosphatase 92 (45-117) U/L Albumin 3.2 L (3.4-5.0) gm/dl Diagnostic Findings CXR: IMPRESSION: Interstitial infiltrative changes right and to a lesser extent left base. Medications Administered Levofloxacin/Dextrose (Levaquin/D5w) 750 mg in 150 mls @ 100 mls/hr IV Q24H MARY Stop: 11/07/18 17:44 Last Admin: 09/26/18 17:57 Dose: 100 mls/hr Documented by: [id number] Discontinued Medications Sodium Chloride (Nss 1000ml) 1,000 mls @ 999 mls/hr IV .Q1H1M MARY Stop: 09/26/18 15:15 Last Admin: 09/26/18 15:07 Dose: Not Given Documented by: [id number] Sodium Chloride (Nss 1000ml) 500 mls @ 999 mls/hr IV .Q31M ONE Stop: 09/26/18 15:30 Last Infusion: 09/26/18 16:26 Dose: 0 mls/hr Documented by: [id number] Admin: 09/26/18 15:06 Dose: 999 mls/hr Documented by: [id number] Cefepime HCl 1,000 mg/ Syringe 11.3 mls @ 5.5 mls/min IV NOW STA; Protocol Stop: 09/26/18 17:39 Last Admin: 09/26/18 18:13 Dose: 5.5 mls/min Documented by: [id number] Ondansetron HCl (Zofran) 4 mg IV NOW STA Stop: 09/26/18 14:07 Last Admin: 09/26/18 14:48 Dose: 4 mg Documented by: [id number] ECG Rate (beats per minute): 69 Rhythm: normal sinus Findings: + 1st degree AV block and + prolonged QT (QTC 467ms) Code Status & VTE Plan Code Status Full Code VTE Prophylaxis Plan VTE Prophylaxis will be ordered: Yes Supervising Physician Co-Signing Physician Notes I have seen and examined the patient and have discussed the case with the provider above. I agree with the assessment and plan as stated with the following exceptions. Ms. Velasco appears fatiged and states that she feels "played out." Symptoms of coughing and shortness of breath present for the last two weeks have worn her out. She did not mention the dark stool episode to me and on review, her H/H is better than it is normally. She denies coughing or choking on food, recent travel or sick contacts. She denies fevers, chills, chest pain or other symptoms. She ambulates with a walker at baseline and per the reports today she ambulated into dialysis. Physical exam revealed a fatigued elderly female in no acute respiratory distress. Rhonchi are present at the bases bilaterally, however, she is not taking deep breaths. Abdomen is soft, NTND with pannus.
--- NOTE | 2018-09-26 19:55 | Emergency Department Note ---
Entered by Neva Orona acting as a scribe for History of Present Illness General Chief complaint: Illness Stated complaint: VERY WEAK,BLACK STOOL Source: patient History of Present Illness Onset (ago): day(s) 2 Location: upper extremity and lower extremity Pain Consistency: + other (worsening) Maximum Pain Intensity: 0 Quality: + other (illness) Associated symptoms: + denies other symptoms (abdominal pain, diarrhea, rhinorrhea, dysuria, burning with urination), + cough, + weakness and + other (melena, constipation); no chest pain, no nausea/vomiting and no shortness of breath The patient is a 73 year old female who presents to the ED with complaints of worsening illness starting 2 days ago. The patient states that for the past 2 days she has been so weak. She states that 2 days ago she had one bowel movement of melena and since then hasnt moved her bowels. She states that she was concerned as she had a GI bleed that required her to be life flighted to [place] a year ago. The patient complains of an intermittent dry cough. The patient notes that she is always on 3L O2 and is on dialysis. She notes that she last had dialysis this morning. The patient denies abdominal pain, nausea, vomiting, diarrhea, rhinorrhea, chest pain, shortness of breath, dysuria, burning with urination, and use of blood thinners. Home Medications Home Medications Medication Instructions Recorded Confirmed Type B complex-vitamin C-folic acid 0.8 mg PO QDL 09/26/18 09/26/18 History [Arabella-Tika] calcium acetate 1,334 mg PO TIDM 09/26/18 09/26/18 History diltiazem HCl 120 mg PO QAM 09/26/18 09/26/18 History ergocalciferol (vitamin D2) 50,000 unit PO MONTHLY 09/26/18 09/26/18 History fluticasone propion-salmeterol 1 inh INHALATION BID 09/26/18 09/26/18 History [Advair Diskus] hydralazine 75 mg PO BID 09/26/18 09/26/18 History insulin aspart U-100 [Novolog 0 unit SUBCUT UD 09/26/18 09/26/18 History Flexpen U-100 Insulin] insulin glargine [Basaglar KwikPen 26 unit SUBCUT QAM 09/26/18 09/26/18 History U-100 Insulin] ipratropium-albuterol 3 ml INHALATION QID PRN 09/26/18 09/26/18 History losartan 100 mg PO HS 09/26/18 09/26/18 History prednisolone acetate 1 drp OPL DAILY 09/26/18 09/26/18 History valacyclovir 1,000 mg PO QAM 09/26/18 09/26/18 History Allergies Allergy/AdvReac Type Severity Reaction Status Date / Time No Known Allergies Allergy Verified 09/26/18 14:06 Past Med/Surg History Medical History DM type 2 (diabetes mellitus, type 2) (Chronic) Adrenal adenoma (Chronic) Osteoarthritis (Chronic) Psoriasis (Chronic) Dyslipidemia (Chronic) Anemia of chronic disease (Chronic) ESRD (end stage renal disease) on dialysis (Chronic) COPD, moderate (Chronic) On 08/19/15 09:47 Mare Whyte wrote "2L O2 at home" AV fistula (Chronic) Pancreatic cyst (Chronic) Chronic respiratory failure with hypoxia (Chronic) H/O cardiovascular stress test (Chronic) "05/2013 - negative for ischemia" Renal cyst (Chronic) Herpes simplex iridocyclitis (Chronic) Moderate mitral regurgitation (Chronic) "moderate to severe on 12/2015 echo" On 01/13/16 15:17 Blanca Chan wrote "echo 06/2015 - calcified mitral valve, moderate MR" Diastolic CHF (Chronic) HTN (hypertension) (Chronic) History of Helicobacter pylori infection (Chronic) A-fib (Chronic) "paroxysmal" SOB (shortness of breath) (Acute) GI bleed (Acute) Surgical History S/P ASH (total abdominal hysterectomy) (Chronic) "For Fibroids " S/P left oophorectomy (Chronic) "1981" S/P cholecystectomy (Chronic) "1971" S/P appendectomy (Chronic) "1971" H/O colonoscopy (Chronic) "2005, hyperplastic polyps repeat in 10 years " History of cataract surgery (Chronic) H/O nasal polypectomy (Chronic) Family History Father Myocardial infarction, Onset Age: 64 Mother , 87 Alzheimer disease Social History Preferred Language: Georgian Communication Ability: Effective marital status: / Current Living Situation: Alone current occupational status: retired Feels Safe at Home: Yes Smoking Status: Current every day smoker Hx Alcohol Use: No Hx Substance Use: No Review of Systems See HPI for pertinent positives & negatives. and A total of 10 systems reviewed and were otherwise negative Physical Exam Vital Signs Vital Signs - 24 hr 09/26/18 13:22 09/26/18 14:30 09/26/18 14:32 Temperature 36.9 C Temperature Source Oral Sepsis Recent Fever Within 48 Hours No Sepsis New/Unexplained Change in Mental Status No Sepsis Action Taken by Nursing No Action Required Pulse Rate 79 69 Pulse Rate from SpO2 Sensor 68 Respiratory Rate 20 Blood Pressure 143/62 H 181/90 H Blood Pressure Mean 89 120 Pulse Oximetry 90 94 97 Oxygen Delivery Method Nasal Cannula Nasal Cannula Oxygen Flow Rate 2 3 09/26/18 14:42 09/26/18 14:50 09/26/18 15:00 Temperature Temperature Source Sepsis Recent Fever Within 48 Hours Sepsis New/Unexplained Change in Mental Status Sepsis Action Taken by Nursing Pulse Rate 69 66 68 Pulse Rate from SpO2 Sensor 68 65 66 Respiratory Rate 19 Blood Pressure 165/74 H Blood Pressure Mean 104 Pulse Oximetry 94 95 100 Oxygen Delivery Method Oxygen Flow Rate 09/26/18 15:10 09/26/18 15:20 09/26/18 15:30 Temperature Temperature Source Sepsis Recent Fever Within 48 Hours Sepsis New/Unexplained Change in Mental Status Sepsis Action Taken by Nursing Pulse Rate 69 70 72 Pulse Rate from SpO2 Sensor 70 68 68 Respiratory Rate 27 H 23 21 Blood Pressure Blood Pressure Mean Pulse Oximetry 100 96 Oxygen Delivery Method Oxygen Flow Rate 09/26/18 15:31 09/26/18 15:40 09/26/18 16:31 Temperature Temperature Source Sepsis Recent Fever Within 48 Hours Sepsis New/Unexplained Change in Mental Status Sepsis Action Taken by Nursing Pulse Rate 72 70 Pulse Rate from SpO2 Sensor 71 69 73 Respiratory Rate 25 H 23 Blood Pressure 162/65 H 190/75 H Blood Pressure Mean 97 113 Pulse Oximetry 98 99 94 Oxygen Delivery Method Oxygen Flow Rate 09/26/18 16:32 09/26/18 16:40 09/26/18 16:50 Temperature Temperature Source Sepsis Recent Fever Within 48 Hours Sepsis New/Unexplained Change in Mental Status Sepsis Action Taken by Nursing Pulse Rate 75 69 69 Pulse Rate from SpO2 Sensor 74 69 69 Respiratory Rate 21 20 16 Blood Pressure Blood Pressure Mean Pulse Oximetry 94 96 95 Oxygen Delivery Method Oxygen Flow Rate 09/26/18 17:00 09/26/18 17:01 09/26/18 17:10 Temperature Temperature Source Sepsis Recent Fever Within 48 Hours Sepsis New/Unexplained Change in Mental Status Sepsis Action Taken by Nursing Pulse Rate 66 66 67 Pulse Rate from SpO2 Sensor 69 65 69 Respiratory Rate 20 23 18 Blood Pressure 174/78 H Blood Pressure Mean 110 Pulse Oximetry 96 96 97 Oxygen Delivery Method Oxygen Flow Rate 09/26/18 17:20 09/26/18 17:30 09/26/18 17:40 Temperature Temperature Source Sepsis Recent Fever Within 48 Hours Sepsis New/Unexplained Change in Mental Status Sepsis Action Taken by Nursing Pulse Rate 71 67 68 Pulse Rate from SpO2 Sensor 69 69 68 Respiratory Rate 24 26 H 19 Blood Pressure 166/81 H Blood Pressure Mean 109 Pulse Oximetry 96 96 98 Oxygen Delivery Method Oxygen Flow Rate 09/26/18 17:50 09/26/18 18:00 09/26/18 18:10 Temperature Temperature Source Sepsis Recent Fever Within 48 Hours Sepsis New/Unexplained Change in Mental Status Sepsis Action Taken by Nursing Pulse Rate 65 63 71 Pulse Rate from SpO2 Sensor 67 63 67 Respiratory Rate 24 23 27 H Blood Pressure Blood Pressure Mean Pulse Oximetry 96 96 96 Oxygen Delivery Method Oxygen Flow Rate 09/26/18 18:20 09/26/18 18:29 Temperature 36.7 C Temperature Source Oral Sepsis Recent Fever Within 48 Hours Sepsis New/Unexplained Change in Mental Status Sepsis Action Taken by Nursing Pulse Rate 72 Pulse Rate from SpO2 Sensor 73 Respiratory Rate 22 Blood Pressure Blood Pressure Mean Pulse Oximetry 96 Oxygen Delivery Method Oxygen Flow Rate GENERAL: sitting up in bed, disheveled, no acute distress, nontoxic EYE EXAM: normal conjunctiva, PERRL and EOM's grossly intact OROPHARYNX: no exudate, no erythema, lips, buccal mucosa, and tongue normal and mucous membranes are moist NECK: supple, no nuchal rigidity, no adenopathy, non-tender LUNGS: Clear to auscultation. Normal chest wall mechanics HEART: no murmurs, S1 normal and S2 normal ABDOMEN: abdomen soft, non-tender, normo-active bowel sounds, no masses, no rebound or guarding. RECTAL: Heme negative brown stool. BACK: Back is symmetrical on inspection and there is no deformity, no midline tenderness, no CVA tenderness. SKIN: no rashes and no bruising UPPER EXTREMITIES: upper extremities are grossly normal. LOWER EXTREMITIES: No pitting edema. NEURO EXAM: Normal sensorium, cranial nerves II-XII grossly intact, normal speech, no gross weakness of arms, no gross weakness of legs. Course ED COURSE: Vital signs were reviewed and showed hypertension. The patients medical record was reviewed The above diagnostic studies were performed and reviewed. ED treatments and interventions as stated above. 1357: The patient was evaluated in room C9. A complete history and physical examination was performed. 1710: I reevaluated the patient and she would like to go home. We are going to do an EKG and chest x-ray. She is agreeable. 1740: Upon reevaluation, the patient is doing well. I discussed my findings with the patient and she understands and agrees with the treatment plan. Based on the patients age, coexisting illnesses, exam and lab findings the decision to treat as an inpatient was made. The patient remained stable while under my care. The patient will be evaluated for further management. 1942: I discussed the patient's case with RENETTA Anthony. She will evaluate the patient for further management. Consultations Consultation #1: I discussed the patient's case with RENETTA Anthony. She will evaluate the patient for further management. Time: 19:42 Administered Medications Levofloxacin/Dextrose (Levaquin/D5w) 750 mg in 150 mls @ 100 mls/hr IV Q24H MARY Stop: 11/07/18 17:44 Last Infusion: 09/26/18 19:34 Dose: 0 mls/hr Documented by: [id number] Admin: 09/26/18 17:57 Dose: 100 mls/hr Documented by: [id number] Discontinued Medications Sodium Chloride (Nss 1000ml) 1,000 mls @ 999 mls/hr IV .Q1H1M MARY Stop: 09/26/18 15:15 Last Admin: 09/26/18 15:07 Dose: Not Given Documented by: [id number] Sodium Chloride (Nss 1000ml) 500 mls @ 999 mls/hr IV .Q31M ONE Stop: 09/26/18 15:30 Last Infusion: 09/26/18 16:26 Dose: 0 mls/hr Documented by: [id number] Admin: 09/26/18 15:06 Dose: 999 mls/hr Documented by: [id number] Cefepime HCl 1,000 mg/ Syringe 11.3 mls @ 5.5 mls/min IV NOW STA; Protocol Stop: 09/26/18 17:39 Last Admin: 09/26/18 18:13 Dose: 5.5 mls/min Documented by: [id number] Ondansetron HCl (Zofran) 4 mg IV NOW STA Stop: 09/26/18 14:07 Last Admin: 09/26/18 14:48 Dose: 4 mg Documented by: [id number] Medical Decision Making Differential Diagnosis Differential Diagnosis includes but is not limited to dehydration, stroke, anemia, hypoglycemia, hyponatremia, hypernatremia, urinary tract infection, pneumonia, bronchitis, sepsis, gastroenteritis, additional abdominal pathology, metabolic abnormalities and infections. Medical Records Attestation: I reviewed the patient's medical records. Home Medications Current Medication List: was personally reviewed by me Laboratory Data Attestation: I reviewed the patient's lab results. Result diagrams: 09/26/18 14:31 09/26/18 15:30 Lab Results 09/26/18 09/26/18 09/26/18 Range/Units 14:31 14:31 14:31 WBC 6.74 (4.8-10.8) K/uL RBC 2.61 L (4.2-5.4) M/uL Hgb 10.4 L (12.0-16.0) g/dL Hct 30.0 L (37-47) % MCV 114.9 H (80-100) fL MCH 39.8 H (25-34) pg MCHC 34.7 (32-36) g/dL RDW Std Deviation 54.3 H (36.4-46.3) fL RDW Coeff of Fior 13.1 (11.5-14.5) % Plt Count 165 (130-400) K/uL MPV 10.4 (7.4-10.4) fL Immature Gran % (Auto) 0.6 % Neut % (Auto) 81.5 % Lymph % (Auto) 7.4 % [place] % (Auto) 8.8 % Eos % (Auto) 1.3 % Baso % (Auto) 0.4 % Immature Gran # (Auto) 0.04 H (0.00-0.02) K/uL Neut # (Auto) 5.49 (1.4-6.5) K/uL Lymph # (Auto) 0.50 L (1.2-3.4) K/uL [place] # (Auto) 0.59 (0.11-0.59) K/uL Eos # (Auto) 0.09 (0-0.5) K/uL Baso # (Auto) 0.03 (0-0.2) K/uL Macrocytosis Present PT Cancelled INR Cancelled APTT (21.0-31.0) Seconds PTT Ratio Sodium 133 L (136-145) mmol/L Potassium (3.5-5.1) mmol/L Chloride 97 L (98-107) mmol/L Carbon Dioxide 27 (21-32) mmol/L Anion Gap 9.0 (3-11) BUN 17 (7-18) mg/dl Creatinine 5.03 H* (0.6-1.2) mg/dl Est Cr Clr Drug Dosing 11.6 ml/min Est GFR ( Amer) 9.3 Est GFR (Non-Af Amer) 8.0 BUN/Creatinine Ratio 3.4 L (10-20) Glucose 207 H (70-99) mg/dl Calcium 9.2 (8.5-10.1) mg/dl Total Bilirubin 0.5 (0.2-1) mg/dl AST (15-37) U/L ALT 22 (12-78) U/L Alkaline Phosphatase 92 (45-117) U/L Total Protein 6.6 (6.4-8.2) gm/dl Albumin 3.2 L (3.4-5.0) gm/dl Globulin 3.4 (2.5-4.0) gm/dl Albumin/Globulin Ratio 0.9 (0.9-2) Lipase 52 L (73-393) U/L 09/26/18 09/26/18 Range/Units 15:30 15:30 WBC (4.8-10.8) K/uL RBC (4.2-5.4) M/uL Hgb (12.0-16.0) g/dL Hct (37-47) % MCV (80-100) fL MCH (25-34) pg MCHC (32-36) g/dL RDW Std Deviation (36.4-46.3) fL RDW Coeff of Fior (11.5-14.5) % Plt Count (130-400) K/uL MPV (7.4-10.4) fL Immature Gran % (Auto) % Neut % (Auto) % Lymph % (Auto) % [place] % (Auto) % Eos % (Auto) % Baso % (Auto) % Immature Gran # (Auto) (0.00-0.02) K/uL Neut # (Auto) (1.4-6.5) K/uL Lymph # (Auto) (1.2-3.4) K/uL [place] # (Auto) (0.11-0.59) K/uL Eos # (Auto) (0-0.5) K/uL Baso # (Auto) (0-0.2) K/uL Macrocytosis PT 9.9 INR 1.0 APTT 26.7 (21.0-31.0) Seconds PTT Ratio 1.0 Sodium (136-145) mmol/L Potassium 3.3 L (3.5-5.1) mmol/L Chloride (98-107) mmol/L Carbon Dioxide (21-32) mmol/L Anion Gap (3-11) BUN (7-18) mg/dl Creatinine (0.6-1.2) mg/dl Est Cr Clr Drug Dosing ml/min Est GFR ( Amer) Est GFR (Non-Af Amer) BUN/Creatinine Ratio (10-20) Glucose (70-99) mg/dl Calcium (8.5-10.1) mg/dl Total Bilirubin (0.2-1) mg/dl AST 13 L (15-37) U/L ALT (12-78) U/L Alkaline Phosphatase (45-117) U/L Total Protein (6.4-8.2) gm/dl Albumin (3.4-5.0) gm/dl Globulin (2.5-4.0) gm/dl Albumin/Globulin Ratio (0.9-2) Lipase (73-393) U/L Imaging Data Radiologist's Impression: Radiology results as stated below per my review and the radiologist's interpretation: XR chest 1V portable CLINICAL HISTORY: cough dyspnea COMPARISON STUDY: 06/29/2017 FINDINGS: Interstitial prominence of the right and to lesser extent left base. No evidence for consolidative infiltrate. Mid and upper lungs are clear. IMPRESSION: Interstitial infiltrative changes right and to a lesser extent left base. The above report was generated using voice recognition software. It may contain grammatical, syntax or spelling errors. Electronically signed by: Stevo Sanchez M.D. 09/26/2018 5:[address] OF THE ABDOMEN AND PELVIS WITHOUT CONTRAST CLINICAL HISTORY: Left lower quadrant abdominal pain. COMPARISON STUDY: CT of the abdomen and pelvis February 09, 2017. Abdominal series June 16, 2017. TECHNIQUE: Axial images of the abdomen and pelvis were obtained without IV contrast. Images were reviewed in the axial, sagittal, and coronal planes. Automated exposure control was utilized for the study. A dose lowering technique was utilized adhering to the principles of ALARA. FINDINGS: Splenomegaly is unchanged. A few hypodense splenic lesions are unchanged since CT of February 09, 2017. Therefore, these are benign. Evaluation of the abdomen and pelvis is suboptimal on this unenhanced examination. Portal within the expected region of the gastroduodenal artery are noted. Marked bilateral renal atrophy is noted without hydronephrosis. A lesion within the lower pole of the right kidney has decreased in size since prior exam. This favors a hyperdense cyst. There is no evidence for a bowel obstruction. A moderate amount of stool is noted within the colon. There is no pneumatosis, free air or portal venous gas. No suspicious osseous lesions are noted. The caliber of small and large bowel are normal. The left adrenal gland lesion is unchanged. This is benign given stability. A few splenules are noted. There is no biliary or pancreatic ductal dilatation. Sensitivity for detection of mucosal lesions is diminished given CT technique. Suspected small bowel diverticula are noted without evidence for diverticulitis. IMPRESSION: 1. No acute process within the abdomen or pelvis on unenhanced exam. 2. Moderate amount of stool within the colon. No bowel obstruction. 3. Marked bilateral renal atrophy which is unchanged. 4. Stable mild splenomegaly. Electronically signed by: Vicente Tapia M.D. 09/26/2018 4:07 PM ECG Data Attestation: I personally reviewed and interpreted this ECG as follows: Indication: SOB/dyspnea Rate (beats per minute): 69 Rhythm: sinus rhythm Findings: + other (normal axis) and + 1st degree AV block; no PVC Comparison ECG Date: from (07/21/2017) Change: no significant change Blood Pressure Blood Pressure Findings: Elevated blood pressure Blood Pressure Disposition: further management by hospitalist BECKI Narrative Patient is a 73-year-old female who presents the ER for weakness associated with one episode of a dark tarry stool on Tuesday and none since then along with a cough which is been present for the past week and worsening. Patient gets dialysis Tuesday. She has not missed any doses. She is chronically on 3 L nasal cannula. IV was established blood work was obtained. Labs show no significant leukocytosis or anemia. Hemoglobin has been stable at 10.4. INR is unremarkable. BMP with mild hypokalemia. LFTs and lipase was unremarkable. Chest x-ray shows a right lower lobe infiltrate. As this patient is a dialysis she was given IV antibiotics. CT abdomen pelvis was unremarkable. Updated and discussed with the hospitalist. Patient and significant other was updated bedside. Impression & Plan HCAP (healthcare-associated pneumonia) Discharge Plan Visit Data *Final* Discharge Date/Time: 09/26/18 19:21 Chief Complaint: Illness Stated Complaint: VERY WEAK,BLACK STOOL ED Provider: Pilo Lizama Discharge Problem: HCAP (healthcare-associated pneumonia) Patient Disposition: Admitted As Inpatient Discharge Instructions Interventions: ED Discharge Assessment Last Done: 09/26/18 19:21 The scribe's documentation has been prepared under my direction and personally reviewed by me in its entirety. I confirm that the note above accurately reflects all work, treatment, procedures, and medical decision making performed by me.
[2018-09-26] MEDS ORDERED: GLUCOSE 10 TABS/TUBE PO PRN (19:58)
[2018-09-26] MEDS ORDERED: CARBOHYDRATES FOR HYPOGLYCEMIA PO PRN (19:58)
[2018-09-26] MEDS ORDERED: DEXTROSE 50% 50 ML SYRINGE IV PRN (19:58)
[2018-09-26] MEDS ORDERED: ACETAMINOPHEN 325 MG TAB PO PRN (19:58)
[2018-09-26] MEDS ORDERED: POLYETHYLENE (MIRALAX) 17 GM PACK PO PRN (19:58)
[2018-09-26] MEDS ORDERED: GLUCOSE 40% GEL 15 GM TUBE PO PRN (19:58)
[2018-09-26] MEDS ORDERED: GLUCAGON FOR INJ 1 MG VIAL SQ PRN (19:58)
[2018-09-26] MEDS ORDERED: ONDANSETRON INJ 2 MG/ML 2 ML VIAL IV PRN (19:58)
[2018-09-26] MEDS ORDERED: LEVOFLOXACIN CONSULT ACTIVE PRN (20:06)
[2018-09-26] MEDS: ALBUT/IPRATROP 3MG/0.5MG NEB 3 ML VIAL NEB SCH (20:25)
[2018-09-26] MEDS: PANTOprazole 40 MG TAB PO SCH (21:22)
[2018-09-26] MEDS: DOCUSATE SODIUM/SENNA 50/8.6MG TAB PO SCH (21:22)
[2018-09-26] MEDS: FLUTICASONE/SALMETEROL 250/50 (ADVAIR) 14 PUFF/1 INHALER INH SCH (21:23)
[2018-09-26] MEDS: LOSARTAN POTASSIUM 50 MG TAB PO SCH (21:26)
[2018-09-26] MEDS: INSULIN ASPART 100 UNITS/ML 3 ML PEN SC SCH (21:28)
[2018-09-27 07:02] LABS: Hematocrit (blood only) 31.2 % (37-47); Hemoglobin 10.9 g/dL (12.0-16.0); Mean Corpuscular Hgb Conc 34.9 g/dL (32-36); Mean Platelet Volume 10.4 fL (7.4-10.4); Platelet Count 148 K/uL (130-400); RDW Coefficient of Variation 13.1 % (11.5-14.5); RDW Standard Deviation 55.3 fL (36.4-46.3); Red Blood Count 2.69 M/uL (4.2-5.4); White Blood Count 5.71 K/uL (4.8-10.8)
[2018-09-27] MEDS ORDERED: SODIUM CHLORIDE 0.9% 1000ML 1,000 ML IV PRN (07:12)
[2018-09-27] MEDS ORDERED: HEPARIN SOD (PORCINE) 1000 UNIT/ML 10 ML VIAL IV SCH (07:12)
--- NOTE | 2018-09-27 07:14 | Nephrology Consultation ---
Date of Consultation September 27, 2018 Assessment & Plan (1) ESRD (end stage renal disease) on dialysis: dialyzes TRSat; has had progressive slow volume overload; will work to optimize fluid status w/ frequent HD in hospital so that volume issues do not complicate/ delay pna recovery. her anemia of ESRD is stable w/ hgb in 10s. her serum chemistries are acceptable for HD this AM. BP at baseline for her and reflects mild volume overload. >2.5 hrs ordered for today w/ goal 2-2.5 L UF -plan routine HD tomorrow as well as 09/29, 09/30 then reassess Present on Admission?: Yes (2) HCAP (healthcare-associated pneumonia): per primary service; frequent dialysis will optimize respiratory/volume status and promote healing Present on Admission?: Yes History of Present Illness Reason for Consultation: esrd on hemodialysis Requesting Physician: Dr Rodriguez Attending Physician: Emma Rodriguez MD History of Present Illness 73 y/o F on TRSat [place] [facility] [place] had marked generalized weakness and lethargy after HD yesterday; I sent her to ER for evaluation where workup revealed HCAP. I am asked to follow in house for ESRD care. When I saw her at dialysis yesterday she could hardly hold her head up at the end of treatment even though BG, 02 sats, SBP were all normal. She also told me that on 09/24 evening she had had large dark BM and none since. Her weakness did not improve even w/ rest. She did not c/o cough yesterday to me but tells me today that she has had one worsening for past few weeks. She has had slow progressive weight gain at HD over past several weeks related to poor tolerance of fluid removal/ excessive cramping. she has also had worsening cough maria dolores w/ lying down though no jennifer orthopnea. Other PMH includes active tobacco abuse, DM2, COPD, pAF w/o AC d/t hx of gastritis/duodenal ulcer, HFpEF. she had a dose of cefepime and is now being treated w/ levaquin; feels improved today. Allergies Allergy/AdvReac Type Severity Reaction Status Date / Time No Known Allergies Allergy Verified 09/26/18 14:06 Home Medications Home Medications Medication Instructions Recorded Confirmed Type B complex-vitamin C-folic acid 0.8 mg PO QDL 09/26/18 09/26/18 History [Arabella-Tika] calcium acetate 1,334 mg PO TIDM 09/26/18 09/26/18 History diltiazem HCl 120 mg PO QAM 09/26/18 09/26/18 History ergocalciferol (vitamin D2) 50,000 unit PO MONTHLY 09/26/18 09/26/18 History fluticasone propion-salmeterol 1 inh INHALATION BID 09/26/18 09/26/18 History [Advair Diskus] hydralazine 75 mg PO BID 09/26/18 09/26/18 History insulin aspart U-100 [Novolog 0 unit SUBCUT UD 09/26/18 09/26/18 History Flexpen U-100 Insulin] insulin glargine [Basaglar KwikPen 26 unit SUBCUT QAM 09/26/18 09/26/18 History U-100 Insulin] ipratropium-albuterol 3 ml INHALATION QID PRN 09/26/18 09/26/18 History losartan 100 mg PO HS 09/26/18 09/26/18 History prednisolone acetate 1 drp OPL DAILY 09/26/18 09/26/18 History valacyclovir 1,000 mg PO QAM 09/26/18 09/26/18 History Patient History Medical History DM type 2 (diabetes mellitus, type 2) (Chronic) Adrenal adenoma (Chronic) Osteoarthritis (Chronic) Psoriasis (Chronic) Dyslipidemia (Chronic) Anemia of chronic disease (Chronic) ESRD (end stage renal disease) on dialysis (Chronic) COPD, moderate (Chronic) On 08/19/15 09:47 Mare Whyte wrote "2L O2 at home" AV fistula (Chronic) Pancreatic cyst (Chronic) Chronic respiratory failure with hypoxia (Chronic) H/O cardiovascular stress test (Chronic) "05/2013 - negative for ischemia" Renal cyst (Chronic) Herpes simplex iridocyclitis (Chronic) Moderate mitral regurgitation (Chronic) "moderate to severe on 12/2015 echo" On 01/13/16 15:17 Blanca Chan wrote "echo 06/2015 - calcified mitral valve, moderate MR" Diastolic CHF (Chronic) HTN (hypertension) (Chronic) History of Helicobacter pylori infection (Chronic) A-fib (Chronic) "paroxysmal" SOB (shortness of breath) (Acute) GI bleed (Acute) Surgical History S/P ASH (total abdominal hysterectomy) (Chronic) "For Fibroids " S/P left oophorectomy (Chronic) "1981" S/P cholecystectomy (Chronic) "1971" S/P appendectomy (Chronic) "1971" H/O colonoscopy (Chronic) "2005, hyperplastic polyps repeat in 10 years " History of cataract surgery (Chronic) H/O nasal polypectomy (Chronic) Family History Father Myocardial infarction, Onset Age: 64 Mother , 87 Alzheimer disease Social History Preferred Language: Jamaican Communication Ability: Effective Boom Master 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 Beliefs That Will Affect Care: Restorationist marital status: / Current Living Situation: Alone current occupational status: retired Other Information That Helps Us Care for You: No Feels Safe at Home: Yes Safety Concerns: Feels Safe At This Time Smoking Status: Current every day smoker Tobacco Type: cigarettes Second Hand Exposure: No Hx Alcohol Use: No Hx Substance Use: No Review of Systems Review of Systems: All systems reviewed & are unremarkable except as noted in HPI & below Constitutional: + fatigue, + weakness and + weight gain Eyes: no worsening vision Ear, Nose, Mouth, Throat: + dry mouth Respiratory: as per Subjective / HPI and + cough; no dyspnea and no pain on inspiration Cardiovascular: + orthopnea Gastrointestinal: + bloating; no change in bowel habits Genitourinary: no change in chronic voiding habits Musculoskeletal: as per Subjective / HPI and + muscle weakness Integumentary: no rash and no non-healing lesions Neurologic: as per Subjective / HPI, + generalized weakness and + memory loss (recalls little of clinic visit at dialysis yesterday) Psychiatric: no behavioral changes Endocrine: + fatigue Hematologic / Lymphatic: no easy bleeding Physical Exam Constitutional: well developed and well nourished on 02nc, looks better than yesterday but still weak; a& o x 3 Eyes: EOM intact bilaterally ENMT: Ears: no external ear abnormality Nose: no external nose abnormality Mouth: + dry oral mucous membranes Neck: no nuchal rigidity Respiratory: normal respiratory effort Auscultation: + diminished lung sounds (on anterior exam (seen on dialysis)) Gastrointestinal (Abdomen): Inspection/Auscultation: normal bowel sounds Percussion/Palpation: abdomen soft; abdomen nontender Musculoskeletal: Extremities: strength 5/5 throughout Skin: no rashes, warm and dry Neurologic: louie, fluent speech, no tremor Psychiatric: A+Ox3, euthymic affect Results & Data Vital Signs (Past 12 Hours) Vital Signs Temp Pulse Pulse Resp BP Pulse Ox 09/27/18 07:02 36.8 C 63 18 135/74 96 09/27/18 03:15 36.7 C 66 19 125/67 92 09/27/18 00:41 64 09/26/18 23:56 37.2 C 64 19 147/73 H 93 09/26/18 21:17 74 09/26/18 20:25 71 18 97 09/26/18 19:59 36.7 C 79 18 160/74 H 95 Laboratory Results Abnormal lab results 09/26/18 09/26/18 09/26/18 Range/Units 14:31 14:31 15:30 RBC 2.61 L (4.2-5.4) M/uL Hgb 10.4 L (12.0-16.0) g/dL Hct 30.0 L (37-47) % MCV 114.9 H (80-100) fL MCH 39.8 H (25-34) pg RDW Std Deviation 54.3 H (36.4-46.3) fL Immature Gran # (Auto) 0.04 H (0.00-0.02) K/uL Lymph # (Auto) 0.50 L (1.2-3.4) K/uL Sodium 133 L (136-145) mmol/L Potassium 3.3 L (3.5-5.1) mmol/L Chloride 97 L (98-107) mmol/L Creatinine 5.03 H* (0.6-1.2) mg/dl BUN/Creatinine Ratio 3.4 L (10-20) Glucose 207 H (70-99) mg/dl POC Glucose (70-99) AST 13 L (15-37) U/L Albumin 3.2 L (3.4-5.0) gm/dl Lipase 52 L (73-393) U/L 09/26/18 09/27/18 Range/Units 19:54 06:29 RBC 2.69 L (4.2-5.4) M/uL Hgb 10.9 L (12.0-16.0) g/dL Hct 31.2 L (37-47) % MCV 116.0 H (80-100) fL MCH 40.5 H (25-34) pg RDW Std Deviation 55.3 H (36.4-46.3) fL Immature Gran # (Auto) (0.00-0.02) K/uL Lymph # (Auto) (1.2-3.4) K/uL Sodium (136-145) mmol/L Potassium (3.5-5.1) mmol/L Chloride (98-107) mmol/L Creatinine (0.6-1.2) mg/dl BUN/Creatinine Ratio (10-20) Glucose (70-99) mg/dl POC Glucose 167 H (70-99) AST (15-37) U/L Albumin (3.4-5.0) gm/dl Lipase (73-393) U/L Diagnostic Findings cxr FINDINGS: Interstitial prominence of the right and to lesser extent left base. No evidence for consolidative infiltrate. Mid and upper lungs are clear. IMPRESSION: Interstitial infiltrative changes right and to a lesser extent left base.
[2018-09-27] MEDS: ALBUT/IPRATROP 3MG/0.5MG NEB 3 ML VIAL NEB SCH ×4 (07:19→18:54)
[2018-09-27 07:44] LABS: BUN Creatinine Ratio 3.9 (10-20); Calcium 8.8 mg/dl (8.5-10.1); Est GFR (African American) 6.4; Est GFR (Non-African American) 5.5; Magnesium 2.2 mg/dl (1.8-2.4); Phosphorus 2.5 mg/dl (2.5-4.9)
[2018-09-27 08:00] LABS: Estimated Average Glucose 134 mg/dl; Hemoglobin A1C 6.3 % (4.5-5.6)
[2018-09-27] MEDS: VALACYCLOVIR HCL 500 MG TABLET PO SCH (08:09)
[2018-09-27] MEDS: dilTIAZem HCL 120 MG CAPCR PO SCH (08:11)
[2018-09-27] MEDS: CALCIUM ACETATE 667 MG CAP PO SCH ×3 (08:11→17:51)
[2018-09-27] MEDS: DOCUSATE SODIUM/SENNA 50/8.6MG TAB PO SCH (08:12)
[2018-09-27] MEDS: PANTOprazole 40 MG TAB PO SCH (08:12)
[2018-09-27] MEDS: prednisoLONE acetate 1% OP SUSP 5 ML BTL OPL SCH (08:12)
[2018-09-27] MEDS: NICOTINE 14 MG/24 HR PATCH TD SCH (08:13)
[2018-09-27] MEDS: INSULIN GLARGINE SOLOSTAR 100 UNITS/ML 3 ML PEN SC SCH (08:13)
[2018-09-27] MEDS: FLUTICASONE/SALMETEROL 250/50 (ADVAIR) 14 PUFF/1 INHALER INH SCH ×2 (08:15→21:01)
[2018-09-27] MEDS: INSULIN ASPART 100 UNITS/ML 3 ML PEN SC SCH ×4 (08:17→21:08)
[2018-09-27 10:18] LABS: Hepatitis B Surface Antibody Immune
[2018-09-27 10:29] LABS: Hepatitis B Surface Antigen Neg (Neg)
[2018-09-27] MEDS: NEPHROCAPS PO SCH (12:30)
--- NOTE | 2018-09-27 18:35 | Dialysis Progress Note ---
Date of Service September 27, 2018 Assessment & Plan (1) ESRD (end stage renal disease) on dialysis: dialyzes TRSat; has had progressive slow volume overload; will work to optimize fluid status w/ frequent HD in hospital so that volume issues do not complicate/ delay pna recovery. her anemia of ESRD is stable w/ hgb in 10s. her serum chemistries are acceptable for HD this AM. BP at baseline for her and reflects mild volume overload. >2.5 hrs ordered for today w/ goal 2-2.5 L UF -plan routine HD tomorrow as well as 09/29, 09/30 then reassess (2) HCAP (healthcare-associated pneumonia): per primary service; frequent dialysis will optimize respiratory/volume status and promote healing Subjective still very tired, still w/ cough perhaps more prominent; no chest pain, no fever, still weak but improved a bit, no n/v or abd pain Review of Systems Review of Systems: All systems reviewed & are unremarkable except as noted in HPI & below Respiratory: + cough Cardiovascular: + orthopnea and + edema Neurologic: + generalized weakness Physical Exam Constitutional: well developed, well nourished, + frail appearing and cooperative on 02NC, A& 0 x 3 Eyes: EOM intact bilaterally ENMT: Ears: no external ear abnormality Nose: no external nose abnormality Mouth: + dry oral mucous membranes Neck: no nuchal rigidity Respiratory: normal respiratory effort Auscultation: + diminished lung sounds (on anterior exam (seen on dialysis)) Cardiovascular: Rate/Rhythm: regular rate and regular rhythm Extremities: + edema (trace) and + AV fistula Gastrointestinal (Abdomen): Inspection/Auscultation: normal bowel sounds Percussion/Palpation: abdomen soft; abdomen nontender Musculoskeletal: Extremities: strength 5/5 throughout Skin: no rashes, warm and dry Neurologic: louie, fluent speech; still quite tired Psychiatric: A+Ox3, euthymic affect Results & Data Vital Signs (Past 12 Hours) Vital Signs Temp Pulse Pulse Pulse Resp BP BP 09/27/18 17:15 37.3 C 65 65 154/58 H 154/58 H 09/27/18 17:00 63 143/61 H 09/27/18 16:40 65 145/61 H 09/27/18 16:20 65 143/57 H 09/27/18 16:00 64 152/58 H 09/27/18 15:40 65 157/63 H 09/27/18 15:20 64 143/59 H 09/27/18 15:00 57 L 150/81 H 09/27/18 14:43 37.1 C 64 64 151/66 H 09/27/18 12:45 36.6 C 72 18 125/63 09/27/18 11:01 64 14 09/27/18 07:19 72 18 09/27/18 07:16 61 09/27/18 07:02 36.8 C 63 18 135/74 Pulse Ox 09/27/18 17:15 09/27/18 17:00 09/27/18 16:40 09/27/18 16:20 09/27/18 16:00 09/27/18 15:40 09/27/18 15:20 09/27/18 15:00 09/27/18 14:43 09/27/18 12:45 96 09/27/18 11:01 96 09/27/18 07:19 91 09/27/18 07:16 09/27/18 07:02 96
--- NOTE | 2018-09-27 19:16 | Hospitalist Progress Note ---
Date of Service September 27, 2018 Assessment & Plan (1) Pneumonia: Present on admssion with fatigue/lethargy and cough CXR showed interstitial infiltrative changes Right lung base. CT Abd/Pelvis concerning for moderate stool in colon but otherwise no acute abnormality Continue Levaquin renal dose Continue Neb treatment Continue oxygen supplement Clinically improves (2) COPD, moderate: continue radha gallardo Stable (3) ESRD (end stage renal disease) on dialysis: Hemodialysis Tuesday//Tuesday Had HD done today Case discussed with Nephro plan to HD tomorrow and Tuesday Stable (4) Anemia of chronic disease: Hgb 10.9 today Receives Procrit injections at HD Stable (5) History of GI bleed: hx of duodenal ulcer and gastritis Patient follows with [facility] Per recent EGD report patient to be on PPI indefinitely Continue Protonix 40 mg daily (6) DM type 2 (diabetes mellitus, type 2): Most recent Hba1c 6.3 (On 09/27/18) Continue Lantus On Insulin sliding scale Monitor BS (7) A-fib: Rate and rhythm controlled on diltiazem Off of anticoagulation secondary to history of GI bleed Stable (8) Diastolic CHF: Dialysis for volume control Continue losartan; off beta-mariana due to hypotension Stable (9) HTN (hypertension): BP elevated Continue hydralazine and losartan an diltiazem Monitor BP (10) DVT prophylaxis: On SCDS/TEDS Disposition Will discharge home once stable from nephrology standpoint Subjective Pt was seen and examined Lying in bed with no distress Pt said that she feels fine She does not want to stay in the hospital She said that she can get HD done as an outpatient Denies any chest pain, palpitation, dizziness and SOB Physical Exam Physical Exam: General- No acute distress Head- atraumatic Eyes- PERRL, EOMI, ENT- oropharynx clear Neck- supple, no JVD Lungs- diminished BS Heart- regular rhythm; no murmur Abdomen- normal bowel sounds, soft, nontender Extremities- no calf tenderness Neuro- alert, oriented x 3; PERRL, EOMI; no facial palsy; no dysarthria Skin- warm & dry Results & Data Vital Signs (Past 12 Hours) Vital Signs Temp Pulse Pulse Pulse Resp BP BP 09/27/18 18:56 60 16 09/27/18 18:55 72 09/27/18 17:15 37.3 C 65 65 154/58 H 154/58 H 09/27/18 17:00 63 143/61 H 09/27/18 16:40 65 145/61 H 09/27/18 16:20 65 143/57 H 09/27/18 16:00 64 152/58 H 09/27/18 15:40 65 157/63 H 09/27/18 15:20 64 143/59 H 09/27/18 15:00 57 L 150/81 H 09/27/18 14:43 37.1 C 64 64 151/66 H 09/27/18 12:45 36.6 C 72 18 125/63 09/27/18 11:01 64 14 09/27/18 07:19 72 18 09/27/18 07:16 61 Pulse Ox 09/27/18 18:56 94 09/27/18 18:55 09/27/18 17:15 09/27/18 17:00 09/27/18 16:40 09/27/18 16:20 09/27/18 16:00 09/27/18 15:40 09/27/18 15:20 09/27/18 15:00 09/27/18 14:43 09/27/18 12:45 96 09/27/18 11:01 96 09/27/18 07:19 91 09/27/18 07:16
[2018-09-27] MEDS ORDERED: ERGOCALCIFEROL 50,000 UNITS CAP PO SCH (21:00)
[2018-09-27] MEDS: LOSARTAN POTASSIUM 50 MG TAB PO SCH (21:02)
[2018-09-28] MEDS ORDERED: SODIUM CHLORIDE 0.9% 1000ML 1,000 ML IV PRN (07:00)
[2018-09-28] MEDS ORDERED: HEPARIN SOD (PORCINE) 1000 UNIT/ML 10 ML VIAL IV ONE (07:00)
[2018-09-28] MEDS: ALBUT/IPRATROP 3MG/0.5MG NEB 3 ML VIAL NEB SCH ×4 (07:31→19:36)
[2018-09-28] MEDS: CALCIUM ACETATE 667 MG CAP PO SCH ×3 (07:55→17:26)
[2018-09-28] MEDS: PANTOprazole 40 MG TAB PO SCH (07:55)
[2018-09-28] MEDS: FLUTICASONE/SALMETEROL 250/50 (ADVAIR) 14 PUFF/1 INHALER INH SCH ×2 (07:55→20:54)
[2018-09-28] MEDS: INSULIN GLARGINE SOLOSTAR 100 UNITS/ML 3 ML PEN SC SCH (07:56)
[2018-09-28] MEDS: INSULIN ASPART 100 UNITS/ML 3 ML PEN SC SCH ×4 (08:00→20:49)
[2018-09-28 09:53] LABS: BUN Creatinine Ratio 3.7 (10-20); Creatinine Clr Calc Pharmacy 8.8 ml/min; Est GFR (African American) 6.2; Est GFR (Non-African American) 5.4; Potassium 3.3 mmol/L (3.5-5.1)
[2018-09-28] MEDS: HEPARIN SOD (PORCINE) 1000 UNIT/ML 10 ML VIAL IV SCH ×4 (10:00→19:08)
[2018-09-28] MEDS: VALACYCLOVIR HCL 500 MG TABLET PO SCH (13:49)
[2018-09-28] MEDS: DOCUSATE SODIUM/SENNA 50/8.6MG TAB PO SCH (13:50)
[2018-09-28] MEDS: prednisoLONE acetate 1% OP SUSP 5 ML BTL OPL SCH (13:50)
[2018-09-28] MEDS: NICOTINE 14 MG/24 HR PATCH TD SCH (13:50)
[2018-09-28] MEDS: NEPHROCAPS PO SCH (13:50)
[2018-09-28] MEDS: dilTIAZem HCL 120 MG CAPCR PO SCH (13:50)
--- NOTE | 2018-09-28 15:58 | Hospitalist Progress Note ---
Date of Service September 28, 2018 Assessment & Plan (1) Pneumonia: Present on admssion with fatigue/lethargy and cough CXR showed interstitial infiltrative changes Right lung base. Continue Levaquin renal dose Continue Neb treatment Continue oxygen supplement Clinically improves (2) COPD, moderate: continue radha gallardo Stable (3) ESRD (end stage renal disease) on dialysis: Hemodialysis Tuesday//Tuesday Had HD done yesterday and today Case discussed with Nephro plan to HD possible tomorrow and Tuesday Continue monitor (4) Anemia of chronic disease: Hgb 10.9 Receives Procrit injections at HD Stable (5) History of GI bleed: hx of duodenal ulcer and gastritis Patient follows with [facility] Per recent EGD report patient to be on PPI indefinitely Continue Protonix 40 mg daily (6) DM type 2 (diabetes mellitus, type 2): Most recent Hba1c 6.3 (On 09/27/18) Continue Lantus On Insulin sliding scale Monitor BS (7) A-fib: Rate and rhythm controlled on diltiazem Off of anticoagulation secondary to history of GI bleed Stable (8) Diastolic CHF: Dialysis for volume control Continue losartan; off beta-mariana due to hypotension Stable (9) HTN (hypertension): BP stable Continue hydralazine and losartan an diltiazem Monitor BP Hypokalemia K 3.3 in HD patient Had HD done today Monitor BMP (10) DVT prophylaxis: On SCDS/TEDS Disposition Will discharge home once stable from nephrology standpoint Subjective Pt was seen and examined Sitting in chair with no distress Pt said that she feels fine She had HD done today with 4 hrs She said that during HD, she had so much abdominal cramps She said that is common for her to have abdominal cramp during HD Denies any chest pain, palpitation, dizziness and SOB Physical Exam Physical Exam: General- No acute distress Head- atraumatic Eyes- PERRL, EOMI, ENT- oropharynx clear Neck- supple, no JVD Lungs- diminished BS Heart- regular rhythm; no murmur Abdomen- normal bowel sounds, soft, nontender Extremities- no calf tenderness Neuro- alert, oriented x 3; PERRL, EOMI; no facial palsy; no dysarthria Skin- warm & dry Results & Data Vital Signs (Past 12 Hours) Vital Signs Temp Pulse Pulse Pulse Resp BP BP 09/28/18 15:10 36.5 C 71 20 121/57 L 09/28/18 13:51 76 20 138/72 09/28/18 13:30 36.8 C 71 09/28/18 12:40 65 122/52 L 09/28/18 12:20 64 125/55 L 09/28/18 11:59 68 147/64 H 09/28/18 11:40 68 115/57 L 09/28/18 11:20 65 123/49 L 09/28/18 11:00 64 119/42 L 09/28/18 10:40 68 124/46 L 09/28/18 10:20 64 128/52 L 09/28/18 10:00 64 130/50 L 09/28/18 09:40 69 128/42 L 09/28/18 09:20 68 152/60 H 09/28/18 09:00 67 146/61 H 09/28/18 08:50 36.8 C 67 09/28/18 07:37 36.7 C 76 20 123/66 09/28/18 07:35 61 09/28/18 07:31 78 18 BP Pulse Ox 09/28/18 15:10 100 09/28/18 13:51 100 09/28/18 13:30 114/39 L 09/28/18 12:40 09/28/18 12:20 09/28/18 11:59 09/28/18 11:40 09/28/18 11:20 09/28/18 11:00 09/28/18 10:40 09/28/18 10:20 09/28/18 10:00 09/28/18 09:40 09/28/18 09:20 09/28/18 09:00 09/28/18 08:50 09/28/18 07:37 98 09/28/18 07:35 09/28/18 07:31 93
--- NOTE | 2018-09-28 16:28 | Nephrology Progress Note ---
Date of Service September 28, 2018 Assessment & Plan (1) ESRD (end stage renal disease) on dialysis: dialyzes TRSat; has had progressive slow volume overload; will work to optimize fluid status w/ frequent HD in hospital so that volume issues do not complicate/ delay pna recovery. her anemia of ESRD is stable w/ hgb in 10s. her serum chemistries are acceptable for HD this AM. BP at baseline for her and reflects mild volume overload. Tolerated HD today for 4hrs. Next HD Tuesday (2) HCAP (healthcare-associated pneumonia): per primary service; frequent dialysis will optimize respiratory/volume status and promote healing Subjective Seen in f/u for HD. Patient seen and examined on HD. She tolerated HD well. She had some abdominal cramps. No SOB Review of Systems Review of Systems: All systems reviewed & are unremarkable except as noted in HPI & below Physical Exam Physical Exam: General exam: Appears comfortable, no acute distress HEENT: Pupils are equal and reactive to light Neck: No JVD, neck is supple trachea is midline Respiratory system: Clear breath sounds bilaterally. Gastrointestinal: Abdomen is soft, non distended, non tender, bowel sounds are present CVS: Regular rate and rhythm. No murmurs, rubs or gallops Musculoskeletal: No joint or muscle tenderness Extremities: Non tender, no edema, peripheral pulses are present Neuro: Oriented, no tremors, no focal neurological deficits Skin: No rashes Results & Data Vital Signs (Past 12 Hours) Vital Signs Temp Pulse Pulse Pulse Resp BP BP 09/28/18 15:10 36.5 C 71 20 121/57 L 09/28/18 13:51 76 20 138/72 09/28/18 13:30 36.8 C 71 09/28/18 12:40 65 122/52 L 09/28/18 12:20 64 125/55 L 09/28/18 11:59 68 147/64 H 09/28/18 11:40 68 115/57 L 09/28/18 11:20 65 123/49 L 09/28/18 11:00 64 119/42 L 09/28/18 10:40 68 124/46 L 09/28/18 10:20 64 128/52 L 09/28/18 10:00 64 130/50 L 09/28/18 09:40 69 128/42 L 09/28/18 09:20 68 152/60 H 09/28/18 09:00 67 146/61 H 09/28/18 08:50 36.8 C 67 09/28/18 07:37 36.7 C 76 20 123/66 09/28/18 07:35 61 09/28/18 07:31 78 18 BP Pulse Ox 09/28/18 15:10 100 09/28/18 13:51 100 09/28/18 13:30 114/39 L 09/28/18 12:40 09/28/18 12:20 09/28/18 11:59 09/28/18 11:40 09/28/18 11:20 09/28/18 11:00 09/28/18 10:40 09/28/18 10:20 09/28/18 10:00 09/28/18 09:40 09/28/18 09:20 09/28/18 09:00 09/28/18 08:50 09/28/18 07:37 98 09/28/18 07:35 09/28/18 07:31 93 Laboratory Results Laboratory Results - last 24 hr 09/27/18 09/27/18 09/28/18 17:48 20:12 07:09 Sodium Potassium Chloride Carbon Dioxide Anion Gap BUN Creatinine Est Cr Clr Drug Dosing Est GFR ( Amer) Est GFR (Non-Af Amer) BUN/Creatinine Ratio Glucose POC Glucose 118 H 154 H 137 H Calcium 09/28/18 09/28/18 08:48 13:39 Sodium 136 Potassium 3.3 L D Chloride 100 Carbon Dioxide 27 Anion Gap 9.0 BUN 26 H Creatinine 7.04 H* Est Cr Clr Drug Dosing 8.8 Est GFR ( Amer) 6.2 Est GFR (Non-Af Amer) 5.4 BUN/Creatinine Ratio 3.7 L Glucose 167 H POC Glucose 107 H Calcium 9.0
[2018-09-28] MEDS ORDERED: LEVOFLOXACIN/D5W 500 MG/100 ML BAG IV SCH (18:00)
[2018-09-28] MEDS: LOSARTAN POTASSIUM 50 MG TAB PO SCH (20:56)
[2018-09-29] MEDS: HEPARIN SOD (PORCINE) 1000 UNIT/ML 10 ML VIAL IV SCH ×2 (00:10→00:13)
[2018-09-29 06:14] LABS: Hemoglobin 10.8 g/dL (12.0-16.0); Mean Corpuscular Hgb Conc 33.8 g/dL (32-36); Mean Corpuscular Volume 116.8 fL (80-100); Platelet Count 165 K/uL (130-400); RDW Coefficient of Variation 13.7 % (11.5-14.5); RDW Standard Deviation 57.6 fL (36.4-46.3); Red Blood Count 2.74 M/uL (4.2-5.4); White Blood Count 4.99 K/uL (4.8-10.8)
[2018-09-29 07:02] LABS: BUN Creatinine Ratio 3.3 (10-20); Calcium 9.2 mg/dl (8.5-10.1); Creatinine Clr Calc Pharmacy 10.5 ml/min; Est GFR (African American) 7.8; Est GFR (Non-African American) 6.7
[2018-09-29] MEDS: ALBUT/IPRATROP 3MG/0.5MG NEB 3 ML VIAL NEB SCH (07:06)
[2018-09-29 07:46] LABS: Potassium 3.9 mmol/L (3.5-5.1)
[2018-09-29] MEDS: INSULIN ASPART 100 UNITS/ML 3 ML PEN SC SCH ×3 (08:28→12:47)
[2018-09-29] MEDS: CALCIUM ACETATE 667 MG CAP PO SCH ×2 (08:31→12:44)
[2018-09-29] MEDS: PANTOprazole 40 MG TAB PO SCH (08:31)
[2018-09-29] MEDS: dilTIAZem HCL 120 MG CAPCR PO SCH (08:31)
[2018-09-29] MEDS: VALACYCLOVIR HCL 500 MG TABLET PO SCH (08:31)
[2018-09-29] MEDS: FLUTICASONE/SALMETEROL 250/50 (ADVAIR) 14 PUFF/1 INHALER INH SCH (08:32)
[2018-09-29] MEDS: DOCUSATE SODIUM/SENNA 50/8.6MG TAB PO SCH (08:32)
[2018-09-29] MEDS: prednisoLONE acetate 1% OP SUSP 5 ML BTL OPL SCH (08:32)
[2018-09-29] MEDS: NICOTINE 14 MG/24 HR PATCH TD SCH (08:33)
[2018-09-29] MEDS: INSULIN GLARGINE SOLOSTAR 100 UNITS/ML 3 ML PEN SC SCH ×2 (08:33→08:46)
[2018-09-29] MEDS ORDERED: ALBUT/IPRATROP 3MG/0.5MG NEB 3 ML VIAL NEB PRN (09:41)
[2018-09-29] MEDS: NEPHROCAPS PO SCH (12:44)
[2018-09-29] MEDS ORDERED: guaiFENesin SUGAR FREE 100 MG/5 ML UDC PO PRN (13:25)
--- NOTE | 2018-09-29 15:26 | Hospitalist Progress Note ---
Date of Service September 29, 2018 Assessment & Plan (1) Pneumonia: Present on admssion with fatigue/lethargy and cough CXR showed interstitial infiltrative changes Right lung base. Continue Levaquin renal dose Continue Neb treatment Continue oxygen supplement Clinically improves (2) COPD, moderate: continue radha gallardo Stable (3) ESRD (end stage renal disease) on dialysis: Hemodialysis Tuesday//Tuesday Had HD done On Case discussed with Nephro Dr. Talisha ALFRED from Nephrology standpoint Dr. Woodall to discharge home Next HD schedule for tomorrow (Tuesday) Clinically stable (4) Anemia of chronic disease: Hgb 10.8 Receives Procrit injections at HD Stable (5) History of GI bleed: hx of duodenal ulcer and gastritis Patient follows with [facility] Per recent EGD report patient to be on PPI indefinitely Continue Protonix 40 mg daily (6) DM type 2 (diabetes mellitus, type 2): Most recent Hba1c 6.3 (On 09/27/18) Continue Lantus On Insulin sliding scale Monitor BS (7) A-fib: Rate and rhythm controlled on diltiazem Off of anticoagulation secondary to history of GI bleed Stable (8) Diastolic CHF: Dialysis for volume control Continue losartan; off beta-mariana due to hypotension Stable (9) HTN (hypertension): BP stable Continue hydralazine and losartan an diltiazem Monitor BP Hypokalemia K 3.9 in HD patient Monitor BMP (10) DVT prophylaxis: On SCDS/TEDS Disposition Discharge home today Follow up with your primary care provider Dr. Armando on 10/06 @ 12:45 PM Next HD schedule for tomorrow Subjective Pt was seen and examined Lying in bed with no distress Pt said that she feels ok She said that she has on/off abdominal cramp she said that that the cramp is common after receiving HD for long hour She said that cough improves Denies any chest pain, palpitation and SOB Physical Exam Physical Exam: General- No acute distress Head- atraumatic Eyes- PERRL, EOMI, ENT- oropharynx clear Neck- supple, no JVD Lungs- diminished BS Heart- regular rhythm; no murmur Abdomen- normal bowel sounds, soft, nontender Extremities- no calf tenderness Neuro- alert, oriented x 3; PERRL, EOMI; no facial palsy; no dysarthria Skin- warm & dry Results & Data Vital Signs (Past 12 Hours) Vital Signs Temp Pulse Pulse Pulse Resp BP Pulse Ox 09/29/18 11:35 36.5 C 69 18 136/65 99 09/29/18 08:56 64 09/29/18 07:51 36.7 C 64 20 114/67 97 09/29/18 07:06 79 18 95 09/29/18 04:34 36.8 C 68 20 126/66 97
--- NOTE | 2018-09-29 18:41 | Nephrology Progress Note ---
Date of Service September 29, 2018 Assessment & Plan (1) ESRD (end stage renal disease) on dialysis: dialyzes TRSat; her anemia of ESRD is stable w/ hgb in 10s. her serum chemistries are acceptable. Had HD yesterday complicated by abd cramps. Next HD tomorrow. If discharged can continue HD as outpatient (2) HCAP (healthcare-associated pneumonia): per primary service; frequent dialysis will optimize respiratory/volume status and promote healing Subjective Patient seen during morning rounds. She feels better. No SOB. She wants to go home. Had HD yesterday. Had abd cramps in dialysis Review of Systems Review of Systems: All systems reviewed & are unremarkable except as noted in HPI & below Physical Exam Physical Exam: General exam: Appears comfortable, no acute distress HEENT: Pupils are equal and reactive to light Neck: No JVD, neck is supple trachea is midline Respiratory system: Clear breath sounds bilaterally. Gastrointestinal: Abdomen is soft, non distended, non tender, bowel sounds are present CVS: Regular rate and rhythm. No murmurs, rubs or gallops Musculoskeletal: No joint or muscle tenderness Extremities: Non tender, no edema, peripheral pulses are present Neuro: Oriented, no tremors, no focal neurological deficits Skin: No rashes Results & Data Vital Signs (Past 12 Hours) Vital Signs Temp Pulse Pulse Pulse Resp BP BP 09/29/18 15:52 36.3 C L 70 64 20 134/65 114/39 L 09/29/18 15:21 36.3 C L 70 20 134/65 09/29/18 11:35 36.5 C 69 18 136/65 09/29/18 08:56 64 09/29/18 07:51 36.7 C 64 20 114/67 09/29/18 07:06 79 18 Pulse Ox 09/29/18 15:52 96 09/29/18 15:21 96 09/29/18 11:35 99 09/29/18 08:56 09/29/18 07:51 97 09/29/18 07:06 95 Laboratory Results Laboratory Results - last 24 hr 09/28/18 09/29/18 09/29/18 20:42 05:50 05:50 WBC 4.99 RBC 2.74 L Hgb 10.8 L Hct 32.0 L MCV 116.8 H MCH 39.4 H MCHC 33.8 RDW Std Deviation 57.6 H RDW Coeff of Fior 13.7 Plt Count 165 MPV 10.0 Sodium 134 L Potassium 3.9 D Chloride 98 Carbon Dioxide 28 Anion Gap 8.0 BUN 19 H Creatinine 5.84 H* D Est Cr Clr Drug Dosing 10.5 Est GFR ( Amer) 7.8 Est GFR (Non-Af Amer) 6.7 BUN/Creatinine Ratio 3.3 L Glucose 146 H POC Glucose 196 H Calcium 9.2 09/29/18 11:20 WBC RBC Hgb Hct MCV MCH MCHC RDW Std Deviation RDW Coeff of Fior Plt Count MPV Sodium Potassium Chloride Carbon Dioxide Anion Gap BUN Creatinine Est Cr Clr Drug Dosing Est GFR ( Amer) Est GFR (Non-Af Amer) BUN/Creatinine Ratio Glucose POC Glucose 185 H Calcium
--- NOTE | 2018-10-02 09:02 | Discharge Summary ---
Date of Service September 29, 2018 Admission HPI Per Admitting Provider This is a 73-year-old female who has a significant past medical history of ESRD on HD //Tue, T2DM, COPD with chronic hypoxic respiratory failure on 3 L of O2 via NC, PAF off anticoagulation, history of GI bleed secondary to gastritis and duodenal ulcer, diastolic CHF, HTN, HLD, anemia of end-stage renal disease, history of tobacco abuse who presents to [facility] secondary to lethargy, fatigue, cough x1.5 weeks. Son-in-law at bedside. Patient was at hemodialysis today and had 1.3 L removed. She was seen by health and safety consultant Dr. Reed and given above symptoms as well as complaint of large black bowel movement 2 days ago it was recommended to be seen in ED for further evaluation. She complains of cough that is dry for approximately 1 week, worse lying down. She also elicits to rhinorrhea, itchy watery eyes, increased shortness of breath at rest, weakness and fatigue. She is not requiring increased oxygen. She denies any fever, chills, sweats, lightheadedness, dizziness, chest pain, palpitations, hemoptysis, nausea, emesis, abdominal pain, diarrhea. She is an anuric given hemodialysis. Her appetite is normal. She denies any weight loss or weight gain. She ambulates with walker at baseline and was able to ambulate in and out of the dialysis center today. She is able to do ADLs on her own. She continues to be able to do the above but just overall feels weak and tired. Admission Exam Per Admitting Provider Gen: Elderly, F, chronically ill, lying in bed, NAD, sitting up in bed, pleasant, conversing easily Head: Normocephalic, Atraumatic Eyes: periorbital edema, Sclera normal, no conjunctival injection, PERRLA, EOMI ENT: Gross hearing intact, normal pharynx, mucous membranes moist Neck: supple, no adenopathy, No JVD, no bruit, Resp: Clear to auscultation b/l with decreased sounds RLL, no wheeze, rales, rhonchi. Normal insp/exp effort, no accessory muscle use, on 3L O2 via NC CV: Regular rate, regular rhythm, soft 1/6 ANABELA noted RUSB, no rub, gallop, or ectopy Abd: +BS x 4, soft, +epigastric tenderness, nondistended, no rebound, guarding or rigidity Musculoskeletal: moves extremities active rom x 4, strength intact, good wood grainer strength Extremities: No edema bilaterally, LUE AV fistula Skin: warm, moist, no rash, negative turgor, cap refill < 2sec Neuro: Alert and oriented x 3, speech normal, good mood/affect, cran nerve 2-12 intact grossly : deferred Principal Diagnosis Pneumonia COPD, moderate ESRD (end stage renal disease) on dialysis Hx GI bleed DM type 2 (diabetes mellitus, type 2) Diastolic CHF Discharge Exam General- No acute distress Head- atraumatic Eyes- PERRL, EOMI, ENT- oropharynx clear Neck- supple, no JVD Lungs- diminished BS Heart- regular rhythm; no murmur Abdomen- normal bowel sounds, soft, nontender Extremities- no calf tenderness Neuro- alert, oriented x 3; PERRL, EOMI; no facial palsy; no dysarthria Skin- warm & dry Discharge Data Allergies Allergy/AdvReac Type Severity Reaction Status Date / Time No Known Allergies Allergy Verified 09/26/18 14:06 Consultations 09/26/18 17:43 ED Decision to Admit Stat 09/26/18 19:58 Consult Case Management - Discharge Planning Routine Consult Nephrology Routine Ordered Studies 09/26/18 14:06 CT abd pelvis wo con Stat XR chest 1V portable CLINICAL HISTORY: cough dyspnea COMPARISON STUDY: 06/29/2017 FINDINGS: Interstitial prominence of the right and to lesser extent left base. No evidence for consolidative infiltrate. Mid and upper lungs are clear. IMPRESSION: Interstitial infiltrative changes right and to a lesser extent left base. The above report was generated using voice recognition software. It may contain grammatical, syntax or spelling errors. Electronically signed by: Stevo Sanchez M.D. 09/26/2018 5:25 PM Dictated: 09/26/18 1724 Transcribed: 09/26/[address] OF THE ABDOMEN AND PELVIS WITHOUT CONTRAST CLINICAL HISTORY: Left lower quadrant abdominal pain. COMPARISON STUDY: CT of the abdomen and pelvis February 09, 2017. Abdominal series June 16, 2017. TECHNIQUE: Axial images of the abdomen and pelvis were obtained without IV contrast. Images were reviewed in the axial, sagittal, and coronal planes. Automated exposure control was utilized for the study. A dose lowering technique was utilized adhering to the principles of ALARA. FINDINGS: Splenomegaly is unchanged. A few hypodense splenic lesions are unchanged since CT of February 09, 2017. Therefore, these are benign. Evaluation of the abdomen and pelvis is suboptimal on this unenhanced examination. Portal within the expected region of the gastroduodenal artery are noted. Marked bilateral renal atrophy is noted without hydronephrosis. A lesion within the lower pole of the right kidney has decreased in size since prior exam. This favors a hyperdense cyst. There is no evidence for a bowel obstruction. A moderate amount of stool is noted within the colon. There is no pneumatosis, free air or portal venous gas. No suspicious osseous lesions are noted. The caliber of small and large bowel are normal. The left adrenal gland lesion is unchanged. This is benign given stability. A few splenules are noted. There is no biliary or pancreatic ductal dilatation. Sensitivity for detection of mucosal lesions is diminished given CT technique. Suspected small bowel diverticula are noted without evidence for diverticulitis. IMPRESSION: 1. No acute process within the abdomen or pelvis on unenhanced exam. 2. Moderate amount of stool within the colon. No bowel obstruction. 3. Marked bilateral renal atrophy which is unchanged. 4. Stable mild splenomegaly. Electronically signed by: Vicente Tapia M.D. 09/26/2018 4:07 PM Dictated: 09/26/18 1559 Transcribed: 09/26/18 1559 Hospital Course (1) Pneumonia: Present on admssion with fatigue/lethargy and cough CXR showed interstitial infiltrative changes Right lung base. Continue Levaquin renal dose Continue Neb treatment Continue oxygen supplement Clinically improves (2) COPD, moderate: continue radha gallardo Stable (3) ESRD (end stage renal disease) on dialysis: Hemodialysis Tuesday//Tuesday Had HD done On Case discussed with Nephro Dr. Talisha ALFRED from Nephrology standpoint Dr. Woodall to discharge home Next HD schedule for tomorrow (Tuesday) Clinically stable (4) Anemia of chronic disease: Hgb 10.8 Receives Procrit injections at HD Stable (5) History of GI bleed: hx of duodenal ulcer and gastritis [facility] Per recent EGD report patient to be on PPI indefinitely Continue Protonix 40 mg daily (6) DM type 2 (diabetes mellitus, type 2): Most recent Hba1c 6.3 (On 09/27/18) Continue Lantus On Insulin sliding scale Monitor BS (7) A-fib: Rate and rhythm controlled on diltiazem Off of anticoagulation secondary to history of GI bleed Stable (8) Diastolic CHF: Dialysis for volume control Continue losartan; off beta-mariana due to hypotension Stable (9) HTN (hypertension): BP stable Continue hydralazine and losartan an diltiazem Monitor BP Hypokalemia K 3.9 in HD patient Monitor BMP (10) DVT prophylaxis: On SCDS/TEDS Disposition Discharge home today Follow up with your primary care provider Dr. Armando on 10/06 @ 12:45 PM Next HD schedule for tomorrow Total Time Total Time Spent Total Time Spent (In Minutes): 35 minutes Total Time Includes: Examination of the Patient, Discharge Planning, Medication Reconciliation, Communication With Other Providers and Other Discharge Plan Discharge Items Patient Disposition: Home - Self-Care Reason For Visit: RLL PNA Discharge Diagnosis: Pneumonia COPD, moderate ESRD (end stage renal disease) on dialysis Hx GI bleed DM type 2 (diabetes mellitus, type 2) Diastolic CHF Discharge Goals: Decrease discomfort, Improve disease control, Improve function and Increase independence Activity: Resume your previous activity Activity Comment: As tolerated Non-emergency contact: Primary Care Provider Call non-emergency contact if: you have any medication questions Follow-up/Referrals: Noam Armando MD [Primary Care Provider] - Diet: Carb Consistent or DM2 Addtl Provider Instructions: Follow up with your primary care provider Dr. Armando on 10/06 @ 12:45 PM Follow up with nephrology Next dialysis schedule for tomorrow Continue oxygen supplement Fall precaution Complete course of antibiotic with Levaquin (Next dose of antibiotic tomorrow) Prescriptions: Continued fluticasone propion-salmeterol [Advair Diskus] 250-50 mcg/dose blister with device 1 inh inhalation BID RF: 0 ipratropium-albuterol 0.5 mg-3 mg(2.5 mg base)/3 mL Solution For Nebulization 3 ml INHALATION QID PRN (Reason: Shortness Of Breath) RF: 0 valacyclovir 1 gram tablet 1,000 mg PO QAM RF: 0 diltiazem HCl 120 mg capsule,extended release 24hr 120 mg PO QAM RF: 0 Arabella-Tika 0.8 mg tablet 0.8 mg PO QDL RF: 0 hydralazine 50 mg tablet 75 mg PO BID RF: 0 ergocalciferol (vitamin D2) 50,000 unit capsule 50,000 unit PO MONTHLY RF: 0 losartan 100 mg tablet 100 mg PO HS RF: 0 Novolog Flexpen U-100 Insulin 100 unit/mL (3 mL) insulin pen subcut UD RF: 0 calcium acetate 667 mg capsule 1,334 mg PO TIDM RF: 0 Basaglar KwikPen U-100 Insulin 100 unit/mL (3 mL) insulin pen 26 unit subcut QAM RF: 0 prednisolone acetate 1 % Drops,Suspension 1 drp OPL DAILY RF: 0 Stand-Alone Forms: [facility] Discharge Orders: Discharge Order (Routine); Ordered 09/29/18 Ordered By: Hansel Chaudhry Admission Data Admit Date/Time: 09/26/18 18:44 Attending Provider: Hansel Chaudhry Admit Provider: Laverne Simpson Primary Care Provider: Noam Armando Other Providers: Emma Rodriguez ; Laverne Simpson ; Jessica Reed Service: Telemetry Medical Other Interventions: Discharge Summary Assessment (RN) Last Done: 09/29/18 15:52 DC Date/Time DO NOT enter until pt leaves facility: 09/29/18 17:15
== END 2018-09-29 17:15 | disposition home or self-care (01) | DRG 193 ==
LOC: ED 13:16 → SUATTDRO 18:44 → 2N 18:44

== ENCOUNTER 2019-01-18 10:55 | Inpatient (IN) ==
[2019-01-18] MEDS ORDERED: methylPREDNISolone 125 MG/2 ML VIAL IV STA (11:35)
[2019-01-18] MEDS ORDERED: ALBUT/IPRATROP 3MG/0.5MG NEB 3 ML VIAL INH STA (11:35)
--- NOTE | 2019-01-18 11:58 | XRay Report ---
SINGLE VIEW CHEST CLINICAL HISTORY: Dyspnea. FINDINGS: An AP, portable, upright chest radiograph is compared to study dated 09/26/2018 and correlate d with chest CT dated 02/08/2017. The heart is enlarged noting atherosclerotic calcification of the t horacic aorta. There is bibasilar atelectasis. No airspace consolidation or large pleural effusion is identified. No pneumothorax is seen. The skeletal structures are osteopenic. The bony thorax is conrado sly intact. Degenerative changes noted in the thoracic spine. IMPRESSION: Mild cardiomegaly with no acute cardiopulmonary abnormality. Electronically signed by: Luigi García M.D. 01/18/2019 11:57 AM
[2019-01-18 11:59] LABS: Basophils # (auto) 0.02 K/uL (0-0.2); Basophils % (auto) 0.2 %; Eosinophils # (auto) 0.02 K/uL (0-0.5); Eosinophils % (auto) 0.2 %; Hematocrit (blood only) 31.8 % (37-47); Hemoglobin 10.4 g/dL (12.0-16.0); Immature Granulocytes # (auto) 0.02 K/uL (0.00-0.02); Immature Granulocytes % (auto) 0.2 %; Lymphocytes # (auto) 0.49 K/uL (1.2-3.4); Lymphocytes % (auto) 4.5 %; Mean Corpuscular Hemoglobin 37.8 pg (25-34); Mean Corpuscular Hgb Conc 32.7 g/dL (32-36); Mean Corpuscular Volume 115.6 fL (80-100); Mean Platelet Volume 10.2 fL (7.4-10.4); Monocytes # (auto) 0.69 K/uL (0.11-0.59); Monocytes % (auto) 6.3 %; Neutrophils # (auto) 9.65 K/uL (1.4-6.5); Neutrophils % (auto) 88.6 %; Platelet Count 174 K/uL (130-400); RDW Standard Deviation 57.7 fL (36.4-46.3); Red Blood Count 2.75 M/uL (4.2-5.4); White Blood Count 10.89 K/uL (4.8-10.8)
[2019-01-18 12:05] LABS: Partial Thromboplastin Ratio 1.2; Partial Thromboplastin Time 31.6 Seconds (21.0-31.0); Prothrombin Time 10.5 Seconds (9.0-12.0)
[2019-01-18] MEDS ORDERED: ACETAMINOPHEN 500 MG TAB PO STA (12:09)
[2019-01-18 12:41] LABS: Albumin Globulin Ratio 0.9 (0.9-2); Albumin Level 3.3 gm/dl (3.4-5.0); BUN Creatinine Ratio 3.3 (10-20); Bilirubin,Total 1.2 mg/dl (0.2-1); Calcium 8.9 mg/dl (8.5-10.1); Creatinine Clr Calc Pharmacy 5.2 ml/min; Est GFR (African American) 3.6; Est GFR (Non-African American) 3.1; Globulin 3.8 gm/dl (2.5-4.0); Magnesium 2.2 mg/dl (1.8-2.4); Potassium 4.1 mmol/L (3.5-5.1); Total Protein 7.1 gm/dl (6.4-8.2); Troponin I 0.021 ng/ml (0-0.045)
[2019-01-18 12:42] LABS: Macrocytosis Present
--- NOTE | 2019-01-18 13:33 | History & Physical Report ---
Date of Service January 18, 2019 Assessment & Plan (1) COPD exacerbation: (2) Chronic respiratory failure with hypoxia: Pt is 73 y/o F with PMH ESRD on HD on , tue schedule, insulin dependent DM II, chronic anemia, HTN, diastolic dysfunction, PAF, COPD, chronic respiratory failure on 3L O2, tobacco use presented to ER with c/o increased cough productive brown sputum, and SOB for a couple of days. Woke up this morning to find had power outage during the night and her oxygen was not on. EMS reported sats at 84% on RA and was given nebulizer treatment enroute. In ER T: 37.7, P: 86, R: 28, BP: 178/78, 89% on 3L NC. WBC: 10.8. POC Lactate: 0.8 CXR: Mild cardiomegaly with no acute cardiopulmonary abnormality -In ER given Solumedrol 125mg IV, Tylenol, hour long duoneb -Pt improved with duoneb treatment with R: 24, 94% on 4L O2 -Negative influenza swab -Blood culture pending -Sputum culture -Azithromycin -Solumedrol 40mg Q8H -Continue chronic O2at 3L via NC -Duonebs -Continue home inhalers -CBC, BMP in am (3) ESRD (end stage renal disease) on dialysis: On , Tue schedule Last HD on 01/16/19, pt due for dialysis today -Continue renal meds -Nephrology consult for HD -Avoid nephrotoxic agents when possible (4) DM type 2 (diabetes mellitus, type 2): A1c: 6.3 on 09/27/18 -Hold home insulin -Novolog, Lantus sliding scale per protocol, may need adjustments while receiving steroids -Monitor BSGs (5) Anemia of chronic disease: Hgb: 10. Baseline in 10's Receives Procrit -Monitor CBC (6) A-fib: History of paroxysmal atrial fibrillation. Not on anticoagulation secondary to h/o GI bleed (7) HTN (hypertension): BP elevated in ER. Pt did not have am BP meds today -Dose am diltiazem and hydralazine now -Continue losartan, diltiazem, hydralazine (8) Diastolic CHF: Euvolemic on exam -Dialysis for volume control (9) Tobacco use: Decreased to 1 cigarette every couple of days -Smoking cessation recommended DVT Prophylaxis -SCDs Full Code as per discussion with pt Follows with Dr Armando for routine care Pt was seen and care coordinated with Dr Simpson. See addendum History of Present Illness Chief Complaint: SOB Primary Care Provider: Noam Armando MD Pt is 73 y/o F with PMH ESRD on HD on , tue schedule, insulin dependent DM II, chronic anemia, HTN, diastolic dysfunction, PAF, COPD, chronic respiratory failure on 3L O2, tobacco use presented to ER with c/o cough and SOB for a couple of days. Pt report chronic productive cough in the mornings usually yellow in color however past couple of days with increased cough and sputum brown coloration. Also c/o increased SOB and wheezing. Has not tried her rescue inhalers or nebulizers. Pt reports always feels cold. Did not take temperature. Also having sore throat past couple of days. Last night had power outage during sleep and pt woke up and her oxygen was not on and had increased SOB. EMS reports sat 84% on RA and pt was given neb treatment and oxygen applied with sats up in 90's. Pt reports 2 days ago vomited once after coughing. States this morning with 2 episodes of loose stools. Denies abdominal pain, hematochezia or melena. Had influenza vaccine in 11/2018 per pt. Denies any ill contacts. Last dialysis on 01/16/19. Due for dialysis today. Did not have any of her morning meds today. Denies diaphoresis, BETANCOURT, dizziness, syncope, vision changes, neck pain, CP, palpitations, choking, otalgia, rhinorrhea, paresthesias, extremity weakness, extremity edema, rashes, urinary symptoms. Allergies Allergy/AdvReac Type Severity Reaction Status Date / Time No Known Allergies Allergy Verified 01/18/19 12:29 Home Medications Home Medications Medication Instructions Recorded Confirmed Type Basaglar KwikPen U-100 Insulin 26 unit SUBCUT QAM 09/26/18 01/18/19 History Novolog Flexpen U-100 Insulin 0 unit SUBCUT UD 09/26/18 01/18/19 History Arabella-Tika 0.8 mg PO QDL 09/26/18 01/18/19 History diltiazem HCl 120 mg PO QAM 09/26/18 01/18/19 History ergocalciferol (vitamin D2) 50,000 unit PO MONTHLY 09/26/18 01/18/19 History fluticasone propion-salmeterol 2 inh INHALATION BID 09/26/18 01/18/19 History [Advair Diskus] hydralazine 50 mg PO BID 09/26/18 01/18/19 History ipratropium-albuterol 3 ml INHALATION QID PRN 09/26/18 01/18/19 History losartan 100 mg PO HS 09/26/18 01/18/19 History prednisolone acetate 1 drp OPL QAM 09/26/18 01/18/19 History valacyclovir 1,000 mg PO QAM 09/26/18 01/18/19 History fluticasone propionate 2 spray INTRANASAL DAILY 01/18/19 01/18/19 History sevelamer carbonate 800 mg PO UD 01/18/19 01/18/19 History umeclidinium [Incruse Ellipta] 1 inh INHALATION DAILY 01/18/19 01/18/19 History Past Med/Surg History Medical History Tobacco use (Chronic) DM type 2 (diabetes mellitus, type 2) (Chronic) Adrenal adenoma (Chronic) Osteoarthritis (Chronic) Psoriasis (Chronic) Dyslipidemia (Chronic) Anemia of chronic disease (Chronic) ESRD (end stage renal disease) on dialysis (Chronic) COPD, moderate (Chronic) On 08/19/15 09:47 Mare Caicedokalyan wrote "2L O2 at home" AV fistula (Chronic) Pancreatic cyst (Chronic) Chronic respiratory failure with hypoxia (Chronic) H/O cardiovascular stress test (Chronic) "05/2013 - negative for ischemia" Renal cyst (Chronic) Herpes simplex iridocyclitis (Chronic) Moderate mitral regurgitation (Chronic) "moderate to severe on 12/2015 echo" On 01/13/16 15:17 Blanca Chan wrote "echo 06/2015 - calcified mitral valve, moderate MR" Diastolic CHF (Chronic) HTN (hypertension) (Chronic) History of Helicobacter pylori infection (Chronic) A-fib (Chronic) "paroxysmal" GI bleed (Resolved) Surgical History S/P ASH (total abdominal hysterectomy) (Chronic) "For Fibroids " S/P left oophorectomy (Chronic) "1981" S/P cholecystectomy (Chronic) "1971" S/P appendectomy (Chronic) "1971" H/O colonoscopy (Chronic) "2005, hyperplastic polyps repeat in 10 years " History of cataract surgery (Chronic) H/O nasal polypectomy (Chronic) Family History Father Myocardial infarction, Onset Age: 64 Mother , 87 Alzheimer disease Social History Preferred Language: [place] Communication Ability: Effective 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 Beliefs That Will Affect Care: Ep[employer] marital status: / Current Living Situation: Alone current occupational status: retired Other Information That Helps Us Care for You: No Feels Safe at Home: Yes Safety Concerns: Feels Safe At This Time Smoking Status: Current some day smoker Tobacco Type: cigarettes ; Cigarettes Per Day: 1 cigarette every couple of days ; Do You Dip or Chew Tobacco: No ; Second Hand Exposure: No ; Tobacco Cessation Education Requested by Patient: No Hx Alcohol Use: No Hx Substance Use: No Review of Systems 2 Review of Systems: All systems reviewed & are unremarkable except as noted in HPI & below Physical Exam Physical Exam: General: chronic ill appearing female, mild respiratory distress, obese Head: normocephalic, atraumatic Eyes: PERRL, EOM's intact, conjunctiva non-injected, anicteric ENT: normal inspection external ears, nose, mucous membranes moist Neck: supple, trachea midline, non-tender Lungs: Currently on duoneb, R: 22-24 without retractions, O2 sat 99%, diminished breath sounds throughout with wheezing CV: P: 94, irregular, distant heart sounds, no pretibial edema Abd: normal BS, soft, non-tender Ext: no cyanosis, no calf tenderness Neuro: A&O x 3, no focal deficits noted, normal affect Skin: warm, dry Results & Data Vital Signs (Past 12 Hours) Vital Signs Temp Pulse Pulse Resp BP BP Pulse Ox 01/18/19 12:44 94 H 33 H 180/73 H 100 01/18/19 11:51 83 24 95 01/18/19 11:49 87 31 H 181/132 H 95 01/18/19 11:36 94 01/18/19 11:24 89 L 01/18/19 11:00 37.7 C H 86 28 H 178/78 H 89 L Laboratory Results Short CBC 01/18/19 Range/Units 11:42 WBC 10.89 H (4.8-10.8) K/uL Hgb 10.4 L (12.0-16.0) g/dL Hct 31.8 L (37-47) % Plt Count 174 (130-400) K/uL BMP 01/18/19 11:40 Sodium 137 Potassium 4.1 Chloride 98 Carbon Dioxide 29 BUN 37 H Creatinine 11.10 H* Glucose 124 H Calcium 8.9 Cardiac Enzymes 01/18/19 Range/Units 11:40 Troponin I 0.021 (0-0.045) ng/ml Liver Function 01/18/19 Range/Units 11:40 Total Bilirubin 1.2 H (0.2-1) mg/dl AST 25 (15-37) U/L ALT 20 (12-78) U/L Alkaline Phosphatase 124 H (45-117) U/L Albumin 3.3 L (3.4-5.0) gm/dl Diagnostic Findings CXR: IMPRESSION: Mild cardiomegaly with no acute cardiopulmonary abnormality. ECG Rate (beats per minute): 87 Rhythm: sinus rhythm Findings: + 1st degree AV block and + PAC Code Status & VTE Plan VTE Prophylaxis Plan VTE Prophylaxis will be ordered: Yes Supervising Physician Co-Signing Physician Notes I have seen and examined the patient and have discussed the case with the provider above. I agree with the assessment and plan as stated with the following exceptions. 73 yo smoker with COPD who has ESRD on hemodialysis presents with 2-3 days of productive coughing, increased shortness of breath and wheezing. She is s/p breathing treatment and now in HD, feeling fatigued but not wheezing. She is speaking in full sentences. Denies sick contacts. Reports recent aversion to food, but was eating PB crackers without issue in HD and was asking for a tray of food when she was through with her session. Lungs were clear to auscultation. HD catheter accessed. Agree with plan above to treat with nebs, steroids, and azithro. DO Calvin
[2019-01-18 13:54] LABS: Influenza A virus by PCR Neg for Influ A (Neg); Influenza B virus by PCR Neg for Influ B (Neg)
[2019-01-18] MEDS ORDERED: CARBOHYDRATES FOR HYPOGLYCEMIA PO PRN (14:59)
[2019-01-18] MEDS ORDERED: DEXTROSE 50% 50 ML SYRINGE IV PRN (14:59)
[2019-01-18] MEDS ORDERED: GLUCOSE 40% GEL 15 GM TUBE PO PRN (14:59)
[2019-01-18] MEDS ORDERED: GLUCAGON FOR INJ 1 MG VIAL SQ PRN (14:59)
[2019-01-18] MEDS ORDERED: GLUCOSE 10 TABS/TUBE PO PRN (14:59)
[2019-01-18] MEDS ORDERED: ACETAMINOPHEN 325 MG TAB PO PRN (14:59)
[2019-01-18] MEDS ORDERED: HEPARIN SOD (PORCINE) 1000 UNIT/ML 10 ML VIAL IV ONE (15:04)
[2019-01-18] MEDS ORDERED: SODIUM CHLORIDE 0.9% 1000ML 1,000 ML IV PRN (15:04)
[2019-01-18] MEDS ORDERED: methylPREDNISolone 40 MG in SYRINGE 0 ML IV SCH (15:30)
[2019-01-18] MEDS ORDERED: AZITHROMYCIN 500 MG in DEXTROSE 5% 250 ML IV SCH (15:30)
[2019-01-18] MEDS: ALBUT/IPRATROP 3MG/0.5MG NEB 3 ML VIAL NEB SCH ×2 (15:38→19:31)
[2019-01-18] MEDS: HEPARIN SOD (PORCINE) 1000 UNIT/ML 10 ML VIAL IV SCH ×3 (15:40→17:40)
[2019-01-18] MEDS ORDERED: SEVELAMER HCL 800 MG TABLET PO PRN (16:06)
--- NOTE | 2019-01-18 16:51 | Nephrology Consultation ---
Date of Consultation January 18, 2019 Assessment & Plan (1) Chronic kidney disease with end stage renal failure on dialysis: esrd on TRSat HD via AVF -getting routine HD today , goal 1.5-1.8L fluid removal as tolerated -chemistries acceptable and not markedly overloaded >> plan next HD on 01/20 Present on Admission?: Yes (2) COPD exacerbation: per primary service Present on Admission?: Yes (3) Anemia of chronic disease: hgb in mid 10s; cont antonieta w/ HD; monitor daily or at least q48 hrs Present on Admission?: Yes History of Present Illness Reason for Consultation: ESRD on dialysis Requesting Physician: Dr Simpson Attending Physician: Laverne Simpson, DO History of Present Illness 73 y/o F on TRSat HD via AVF at [facility] whom I'm asked to see for dialysis needs after she was admitted today for COPD exacerbation. Other PMH includes active tobacco abuse, DM2, pAF w/o AC d/t hx of gi bleeding; she was admitted here this summer for pneumonia for 3 days. She is adherent w/ her treatments generally; often cramps on dialysis and does not tolerate large fluid removal. In ER today she had aggressive neb treatments and steroids w/ some improvement; flu swab negative. She uses 02NC crhonically and is on 3LNC currently. her breathing worsened and cough started suddenly overnight. her temp in ER was 37.7. Allergies Allergy/AdvReac Type Severity Reaction Status Date / Time No Known Allergies Allergy Verified 01/18/19 12:29 Home Medications Home Medications Medication Instructions Recorded Confirmed Type Basaglar KwikPen U-100 Insulin 26 unit SUBCUT QAM 09/26/18 01/18/19 History Novolog Flexpen U-100 Insulin 0 unit SUBCUT 09/26/18 01/18/19 History Arabella-Tika 0.8 mg PO QDL 09/26/18 01/18/19 History diltiazem HCl 120 mg PO QAM 09/26/18 01/18/19 History ergocalciferol (vitamin D2) 50,000 unit PO MONTHLY 09/26/18 01/18/19 History fluticasone propion-salmeterol 2 inh INHALATION BID 09/26/18 01/18/19 History [Advair Diskus] hydralazine 50 mg PO BID 09/26/18 01/18/19 History ipratropium-albuterol 3 ml INHALATION QID PRN 09/26/18 01/18/19 History losartan 100 mg PO HS 09/26/18 01/18/19 History prednisolone acetate 1 drp OPL QAM 09/26/18 01/18/19 History valacyclovir 1,000 mg PO QAM 09/26/18 01/18/19 History fluticasone propionate 2 spray INTRANASAL DAILY 01/18/19 01/18/19 History sevelamer carbonate 800 mg PO UD 01/18/19 01/18/19 History umeclidinium [Incruse Ellipta] 1 inh INHALATION DAILY 01/18/19 01/18/19 History Patient History Medical History Tobacco use (Chronic) DM type 2 (diabetes mellitus, type 2) (Chronic) Adrenal adenoma (Chronic) Osteoarthritis (Chronic) Psoriasis (Chronic) Dyslipidemia (Chronic) Anemia of chronic disease (Chronic) ESRD (end stage renal disease) on dialysis (Chronic) COPD, moderate (Chronic) On 08/19/15 09:47 Mare Whyte wrote "2L O2 at home" AV fistula (Chronic) Pancreatic cyst (Chronic) Chronic respiratory failure with hypoxia (Chronic) H/O cardiovascular stress test (Chronic) "05/2013 - negative for ischemia" Renal cyst (Chronic) Herpes simplex iridocyclitis (Chronic) Moderate mitral regurgitation (Chronic) "moderate to severe on 12/2015 echo" On 01/13/16 15:17 Blanca Chan wrote "echo 06/2015 - calcified mitral valve, moderate MR" Diastolic CHF (Chronic) HTN (hypertension) (Chronic) History of Helicobacter pylori infection (Chronic) A-fib (Chronic) "paroxysmal" GI bleed (Resolved) Surgical History S/P ASH (total abdominal hysterectomy) (Chronic) "For Fibroids " S/P left oophorectomy (Chronic) "1981" S/P cholecystectomy (Chronic) "1971" S/P appendectomy (Chronic) "1971" H/O colonoscopy (Chronic) "2005, hyperplastic polyps repeat in 10 years " History of cataract surgery (Chronic) H/O nasal polypectomy (Chronic) Family History Father Myocardial infarction, Onset Age: 64 Mother , 87 Alzheimer disease Social History Preferred Language: Vietnamese Communication Ability: Effective Personnel Assistant 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 Beliefs That Will Affect Care: Buddhist marital status: / Current Living Situation: Alone current occupational status: retired Other Information That Helps Us Care for You: No Feels Safe at Home: Yes Safety Concerns: Feels Safe At This Time Smoking Status: Current some day smoker Tobacco Type: cigarettes ; Cigarettes Per Day: 1 cigarette every couple of days ; Do You Dip or Chew Tobacco: No ; Second Hand Exposure: No ; Tobacco Cessation Education Requested by Patient: No Hx Alcohol Use: No Hx Substance Use: No Review of Systems Review of Systems: All systems reviewed & are unremarkable except as noted in HPI & below Constitutional: + fever, + fatigue and + weakness Respiratory: as per Subjective / HPI and + cough Gastrointestinal: + vomiting (w/ coughing) Genitourinary: no change in chronic voiding habits Hematologic / Lymphatic: no easy bleeding Physical Exam Constitutional: well developed, well nourished, + ill appearing (fatigued) and cooperative Eyes: EOM intact bilaterally ENMT: Ears: no external ear abnormality Nose: no external nose abnormality Mouth: + dry oral mucous membranes Neck: no nuchal rigidity Respiratory: normal respiratory effort Auscultation: + diminished lung sounds and + rhonchi Cardiovascular: Rate/Rhythm: regular rate and regular rhythm Extremities: + edema (trace ble) and + AV fistula (+ t/b) Gastrointestinal (Abdomen): Inspection/Auscultation: normal bowel sounds Percussion/Palpation: abdomen soft; abdomen nontender Musculoskeletal: Extremities: strength 5/5 throughout visibly tired Skin: no rashes, warm and dry Neurologic: louie but tired/weak, fluent speech, no tremor Psychiatric: Orientation: oriented x 3 (though nurse reports some confusion earlier) Results & Data Vital Signs (Past 12 Hours) Vital Signs Temp Pulse Pulse Pulse Resp BP BP 01/18/19 15:20 36.7 C 90 80 17 136/51 L 126/77 01/18/19 15:00 90 175/54 H 01/18/19 14:42 93 H 153/68 H 01/18/19 14:00 37.1 C 96 H 156/50 H 01/18/19 13:50 101 H 24 146/50 H 01/18/19 13:30 98 H 29 H 140/51 L 01/18/19 13:00 95 H 35 H 164/84 H 01/18/19 12:44 93 H 94 H 30 H 180/73 H 180/73 H 01/18/19 12:35 90 32 H 01/18/19 11:51 83 24 01/18/19 11:49 87 31 H 181/132 H 01/18/19 11:36 01/18/19 11:24 01/18/19 11:00 37.7 C H 86 28 H 178/78 H Pulse Ox 01/18/19 15:20 97 01/18/19 15:00 01/18/19 14:42 01/18/19 14:00 93 01/18/19 13:50 94 01/18/19 13:30 91 01/18/19 13:00 98 01/18/19 12:44 99 01/18/19 12:35 01/18/19 11:51 95 01/18/19 11:49 95 01/18/19 11:36 94 01/18/19 11:24 89 L 01/18/19 11:00 89 L Laboratory Results 01/18/19 11:42 01/18/19 11:40 Diagnostic Findings cxr > IMPRESSION: Mild cardiomegaly with no acute cardiopulmonary abnormality.
--- NOTE | 2019-01-18 17:44 | Dialysis Progress Note ---
Date of Service January 18, 2019 Assessment & Plan (1) Chronic kidney disease with end stage renal failure on dialysis: esrd on TRSat HD via AVF -getting routine HD today , goal 1.5-1.8L fluid removal as tolerated -chemistries acceptable and not markedly overloaded >> plan next HD on 01/20 or as clinical status dictates (2) COPD exacerbation: per primary service (3) Anemia of chronic disease: hgb in mid 10s; cont antonieta w/ HD; monitor daily or at least q48 hrs Subjective seen on hd; exhausted and w/ generalized weakness; nurse reports some confusion earlier though pt is clear MS when I see her. no pain; breathing/cough more settled now Review of Systems Review of Systems: All systems reviewed & are unremarkable except as noted in HPI & below Physical Exam Constitutional: well developed, well nourished, + ill appearing (fatigued) and cooperative Eyes: EOM intact bilaterally ENMT: Ears: no external ear abnormality Nose: no external nose abnormality Mouth: + dry oral mucous membranes Neck: no nuchal rigidity Respiratory: normal respiratory effort Auscultation: + diminished lung sounds and + rhonchi Cardiovascular: Rate/Rhythm: regular rate and regular rhythm Extremities: + edema (trace ble) and + AV fistula (+ t/b) Gastrointestinal (Abdomen): Inspection/Auscultation: normal bowel sounds Percussion/Palpation: abdomen soft; abdomen nontender Musculoskeletal: Extremities: strength 5/5 throughout Skin: no rashes, warm and dry Psychiatric: Orientation: oriented x 3 (though nurse reports some confusion earlier) Results & Data Vital Signs (Past 12 Hours) Vital Signs Temp Pulse Pulse Pulse Resp BP BP 01/18/19 17:20 84 149/59 H 01/18/19 17:00 80 166/70 H 01/18/19 16:40 80 141/53 H 01/18/19 16:20 88 113/55 L 01/18/19 16:00 87 153/73 H 01/18/19 15:40 90 153/66 H 01/18/19 15:20 36.7 C 90 80 17 136/51 L 126/77 01/18/19 15:00 90 175/54 H 01/18/19 14:42 93 H 153/68 H 01/18/19 14:00 37.1 C 96 H 156/50 H 01/18/19 13:50 101 H 24 146/50 H 01/18/19 13:30 98 H 29 H 140/51 L 01/18/19 13:00 95 H 35 H 164/84 H 01/18/19 12:44 93 H 94 H 30 H 180/73 H 180/73 H 01/18/19 12:35 90 32 H 01/18/19 11:51 83 24 01/18/19 11:49 87 31 H 181/132 H 01/18/19 11:36 01/18/19 11:24 01/18/19 11:00 37.7 C H 86 28 H 178/78 H Pulse Ox 01/18/19 17:20 01/18/19 17:00 01/18/19 16:40 01/18/19 16:20 01/18/19 16:00 01/18/19 15:40 01/18/19 15:20 97 01/18/19 15:00 01/18/19 14:42 01/18/19 14:00 93 01/18/19 13:50 94 01/18/19 13:30 91 01/18/19 13:00 98 01/18/19 12:44 99 01/18/19 12:35 01/18/19 11:51 95 01/18/19 11:49 95 01/18/19 11:36 94 01/18/19 11:24 89 L 01/18/19 11:00 89 L Laboratory Results reviewed
--- NOTE | 2019-01-18 17:48 | Emergency Department Note ---
Entered by Sandra Kemp acting as a scribe for ED Provider Note CHIEF COMPLAINT: Shortness of breath HISTORY OF PRESENT ILLNESS: The patient is a 73 y/o female who presents to the emergency department for evaluation of constant shortness of breath that began last night. EMS states that the patient is on 3 liters O2 chronically but due to the patient losing power last evening for 12 hours her O2 sats were in the 70s. EMS notes that the y gave the patient a Duoneb treatment which resulted In junky sounding lungs. The patient reports that she has had a cough with production for the past few days and has not been feeling great during this time as well. She states she is a dialysis patient and regularly goes Tuesday, and does not produce urine. Pt denies LOC, headache, fevers, chills, diaphoresis, visual changes, neck pain, chest pain, nausea, vomiting, abdominal pain, back pain, melena, hematochezia, numbness, weakness, lymphadenopathy, rash, or other complaints. REVIEW OF SYSTEMS: See HPI for pertinent positives and negatives. A total of ten systems were reviewed and were otherwise negative. PMHx/PSHx: Dialysis diabetes dyslipidemia anemia of chronic disease COPD ESRD SOCIAL HISTORY: Patient lives at home. PHYSICAL EXAM: GENERAL: Awake, alert, tired, mildly ill-appearing, in no distress HENT: Normocephalic, atraumatic. Oropharynx unremarkable. EYES: PERRL. Normal conjunctiva. Sclera non-icteric. NECK: Inspection normal. Non-tender. Supple. No nuchal rigidity. FROM. No masses. RESPIRATORY: Increased work of breathing. Rhonchi on the right side. No wheezes. No rales. CARDIAC: Normal rate. Normal rhythm. No murmurs. No rubs. Extremities warm and well perfused. Pulses equal. No JVD. GI: Soft, non-distended. No tenderness to palpation. No rebound or guarding. No masses. RECTAL: Deferred. MUSCULOSKELETAL: Atraumatic. Chest examination reveals no tenderness. The back is symmetrical on inspection without obvious abnormality. There is no CVA tenderness to palpation. No joint edema. LOWER EXTREMITIES: Calves are equal size bilaterally and non-tender. No edema. No discoloration. NEURO: Normal sensorium. No sensory or motor deficits noted. SKIN: No rash or jaundice noted. EMERGENCY DEPARTMENT COURSE: 1120: Past medical records reviewed. The patient was evaluated in room B04B, and a complete history and physical examination were performed. 1153: I spoke with Blanca levin for Dr. John Murcia Hospitalist. They will evaluate for further management. 1245: I spoke with Dr. Smyth Nephrology . She is setting up dialysis for the patient. 1300: I checked on the patient and she is feeling better. Twin was evaluating in room. MEDICAL DECISION MAKING: Prior records/ancillary studies reviewed. Triage Nursing notes reviewed and agree them. The patient's history was concerning for shortness of breath. Differential diagnosis: Etiologies such as pneumonia, COPD, reactive airway disease, CHF, cardiac ischemia, pulmonary embolism, pneumothorax, musculoskeletal, infections, gastrointestinal, as well as others were entertained. Physical examination: As above. Increased work of breathing. Requiring supplemental oxygen. ER treatment provided: Hour-long DuoNeb treatment IV Solu-Medrol On reassessment the patient felt better. Diagnostic interpretation by me: The electrocardiogram was negative for pathologic change. The labs revealed a slight leukocytosis on CBC. Chemistry panel revealed findings consistent with her end-stage renal disease. No hyperkalemia. Imaging studies: Chest x-ray chronic findings without obvious infiltrate. The patient missed her dialysis this morning. She appears to have a COPD exacerbation. She was treated as above. She was starting to feel better. Further management will be necessary in the hospital. Consultation: A consultation was placed with the hospitalist. The case was discussed and diagnostics were reviewed. The patient was evaluated in the ER for further treatment. I also discussed the case with nephrology. Dialysis intervention was arranged. IMPRESSION: SOB, COPD exacerbation, hypoxia, mild anemia, fever, and chronic renal failure on dialysis PLAN: Admitted The scribe's documentation has been prepared under my direction and personally reviewed by me in its entirety. I confirm that the note above accurately reflects all work, treatment, procedures, and medical decision making performed by me. Impression & Plan Breath shortness, COPD exacerbation, Hypoxia, Anemia, mild, Fever, Chronic kidney disease with end stage renal failure on dialysis Past Med/Surg History Medical History Tobacco use (Chronic) DM type 2 (diabetes mellitus, type 2) (Chronic) Adrenal adenoma (Chronic) Osteoarthritis (Chronic) Psoriasis (Chronic) Dyslipidemia (Chronic) Anemia of chronic disease (Chronic) ESRD (end stage renal disease) on dialysis (Chronic) COPD, moderate (Chronic) On 08/19/15 09:47 Mare Whyte wrote "2L O2 at home" AV fistula (Chronic) Pancreatic cyst (Chronic) Chronic respiratory failure with hypoxia (Chronic) H/O cardiovascular stress test (Chronic) "05/2013 - negative for ischemia" Renal cyst (Chronic) Herpes simplex iridocyclitis (Chronic) Moderate mitral regurgitation (Chronic) "moderate to severe on 12/2015 echo" On 01/13/16 15:17 Blanca Levin wrote "echo 06/2015 - calcified mitral valve, moderate MR" Diastolic CHF (Chronic) HTN (hypertension) (Chronic) History of Helicobacter pylori infection (Chronic) A-fib (Chronic) "paroxysmal" GI bleed (Resolved) Surgical History S/P ASH (total abdominal hysterectomy) (Chronic) "For Fibroids " S/P left oophorectomy (Chronic) "1981" S/P cholecystectomy (Chronic) "1971" S/P appendectomy (Chronic) "1971" H/O colonoscopy (Chronic) "2005, hyperplastic polyps repeat in 10 years " History of cataract surgery (Chronic) H/O nasal polypectomy (Chronic) Family History Father Myocardial infarction, Onset Age: 64 Mother , 87 Alzheimer disease Social History Preferred Language: Icelandic Communication Ability: Effective Support Services Tech 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 Beliefs That Will Affect Care: [place] marital status: / Current Living Situation: Alone current occupational status: retired Other Information That Helps Us Care for You: No Feels Safe at Home: Yes Safety Concerns: Feels Safe At This Time Smoking Status: Current some day smoker Tobacco Type: cigarettes ; Cigarettes Per Day: 1 cigarette every couple of days ; Do You Dip or Chew Tobacco: No ; Second Hand Exposure: No ; Tobacco Cessation Education Requested by Patient: No Hx Alcohol Use: No Hx Substance Use: No Results & Data Vital Signs Vital Signs - 24 hr 01/18/19 11:00 01/18/19 11:24 01/18/19 11:36 Temperature 37.7 C H Temperature Source Oral Sepsis Recent Fever Within 48 Hours No Sepsis New/Unexplained Change in Mental Status No Sepsis Action Taken by Nursing No Action Required Oxygen Flow Rate - Titration 3 4 Pulse Oximetry Post Tiitration 94 94 Pulse Rate 86 Pulse Rate [Apical] Pulse Rate from SpO2 Sensor Pulse Rhythm [Apical] Respiratory Rate 28 H Respiratory Effort / Characteristics Blood Pressure 178/78 H Blood Pressure [Right Arm] Blood Pressure Mean 111 Blood Pressure Mean [Right Arm] Blood Pressure Position Sitting Blood Pressure Position [Right Arm] Pulse Oximetry 89 L 89 L 94 Oxygen Delivery Method Nasal Cannula Nasal Cannula Nasal Cannula Oxygen Flow Rate 3 3 4 01/18/19 11:49 01/18/19 11:51 01/18/19 12:35 Temperature Temperature Source Sepsis Recent Fever Within 48 Hours Sepsis New/Unexplained Change in Mental Status Sepsis Action Taken by Nursing Oxygen Flow Rate - Titration Pulse Oximetry Post Tiitration Pulse Rate 90 Pulse Rate [Apical] 87 83 Pulse Rate from SpO2 Sensor Pulse Rhythm [Apical] Irregular Respiratory Rate 31 H 24 32 H Respiratory Effort / Characteristics Spontaneous Blood Pressure Blood Pressure [Right Arm] 181/132 H Blood Pressure Mean Blood Pressure Mean [Right Arm] 148 Blood Pressure Position Blood Pressure Position [Right Arm] Sitting Pulse Oximetry 95 95 Oxygen Delivery Method Nasal Cannula Nasal Cannula Oxygen Flow Rate 4 4 01/18/19 12:44 01/18/19 13:00 Temperature Temperature Source Sepsis Recent Fever Within 48 Hours Sepsis New/Unexplained Change in Mental Status Sepsis Action Taken by Nursing Oxygen Flow Rate - Titration Pulse Oximetry Post Tiitration Pulse Rate 93 H 95 H Pulse Rate [Apical] 94 H Pulse Rate from SpO2 Sensor 94 H 101 H Pulse Rhythm [Apical] Irregular Respiratory Rate 30 H 35 H Respiratory Effort / Characteristics Blood Pressure 180/73 H 164/84 H Blood Pressure [Right Arm] 180/73 H Blood Pressure Mean 108 110 Blood Pressure Mean [Right Arm] 108 Blood Pressure Position Blood Pressure Position [Right Arm] Sitting Pulse Oximetry 99 98 Oxygen Delivery Method Nebulizer Oxygen Flow Rate Home Medications Current Medication List: was personally reviewed by me Laboratory Data Attestation: I reviewed the patient's lab results. Result diagrams: 01/18/19 11:42 01/18/19 11:40 Lab Results 01/18/19 01/18/19 01/18/19 Range/Units 11:40 11:40 11:42 WBC 10.89 H (4.8-10.8) K/uL RBC 2.75 L (4.2-5.4) M/uL Hgb 10.4 L (12.0-16.0) g/dL Hct 31.8 L (37-47) % MCV 115.6 H (80-100) fL MCH 37.8 H (25-34) pg MCHC 32.7 (32-36) g/dL RDW Std Deviation 57.7 H (36.4-46.3) fL RDW Coeff of Fior 14.0 (11.5-14.5) % Plt Count 174 (130-400) K/uL MPV 10.2 (7.4-10.4) fL Immature Gran % (Auto) 0.2 % Neut % (Auto) 88.6 % Lymph % (Auto) 4.5 % [place] % (Auto) 6.3 % Eos % (Auto) 0.2 % Baso % (Auto) 0.2 % Immature Gran # (Auto) 0.02 (0.00-0.02) K/uL Neut # (Auto) 9.65 H (1.4-6.5) K/uL Lymph # (Auto) 0.49 L (1.2-3.4) K/uL [place] # (Auto) 0.69 H (0.11-0.59) K/uL Eos # (Auto) 0.02 (0-0.5) K/uL Baso # (Auto) 0.02 (0-0.2) K/uL Macrocytosis Present PT 10.5 (9.0-12.0) Seconds INR 1.0 (0.9-1.1) APTT 31.6 H (21.0-31.0) Seconds PTT Ratio 1.2 Sodium 137 (136-145) mmol/L Potassium 4.1 (3.5-5.1) mmol/L Chloride 98 (98-107) mmol/L Carbon Dioxide 29 (21-32) mmol/L Anion Gap 10.0 (3-11) BUN 37 H (7-18) mg/dl Creatinine 11.10 H* (0.6-1.2) mg/dl Est Cr Clr Drug Dosing 5.2 ml/min Est GFR ( Amer) 3.6 Est GFR (Non-Af Amer) 3.1 BUN/Creatinine Ratio 3.3 L (10-20) Glucose 124 H (70-99) mg/dl POC Lactic Acid Flynn (0.90-1.70) mmol/L Calcium 8.9 (8.5-10.1) mg/dl Magnesium 2.2 (1.8-2.4) mg/dl Total Bilirubin 1.2 H (0.2-1) mg/dl AST 25 (15-37) U/L ALT 20 (12-78) U/L Alkaline Phosphatase 124 H (45-117) U/L Troponin I 0.021 (0-0.045) ng/ml Total Protein 7.1 (6.4-8.2) gm/dl Albumin 3.3 L (3.4-5.0) gm/dl Globulin 3.8 (2.5-4.0) gm/dl Albumin/Globulin Ratio 0.9 (0.9-2) Specimen Hemolysis Influenza Type A (PCR) (Neg) Influenza Type B (PCR) (Neg) 01/18/19 01/18/19 Range/Units 12:10 12:47 WBC (4.8-10.8) K/uL RBC (4.2-5.4) M/uL Hgb (12.0-16.0) g/dL Hct (37-47) % MCV (80-100) fL MCH (25-34) pg MCHC (32-36) g/dL RDW Std Deviation (36.4-46.3) fL RDW Coeff of Fior (11.5-14.5) % Plt Count (130-400) K/uL MPV (7.4-10.4) fL Immature Gran % (Auto) % Neut % (Auto) % Lymph % (Auto) % [place] % (Auto) % Eos % (Auto) % Baso % (Auto) % Immature Gran # (Auto) (0.00-0.02) K/uL Neut # (Auto) (1.4-6.5) K/uL Lymph # (Auto) (1.2-3.4) K/uL [place] # (Auto) (0.11-0.59) K/uL Eos # (Auto) (0-0.5) K/uL Baso # (Auto) (0-0.2) K/uL Macrocytosis PT (9.0-12.0) Seconds INR (0.9-1.1) APTT (21.0-31.0) Seconds PTT Ratio Sodium (136-145) mmol/L Potassium (3.5-5.1) mmol/L Chloride (98-107) mmol/L Carbon Dioxide (21-32) mmol/L Anion Gap (3-11) BUN (7-18) mg/dl Creatinine (0.6-1.2) mg/dl Est Cr Clr Drug Dosing ml/min Est GFR ( Amer) Est GFR (Non-Af Amer) BUN/Creatinine Ratio (10-20) Glucose (70-99) mg/dl POC Lactic Acid Flynn 0.81 L (0.90-1.70) mmol/L Calcium (8.5-10.1) mg/dl Magnesium (1.8-2.4) mg/dl Total Bilirubin (0.2-1) mg/dl AST (15-37) U/L ALT (12-78) U/L Alkaline Phosphatase (45-117) U/L Troponin I (0-0.045) ng/ml Total Protein (6.4-8.2) gm/dl Albumin (3.4-5.0) gm/dl Globulin (2.5-4.0) gm/dl Albumin/Globulin Ratio (0.9-2) Specimen Hemolysis Influenza Type A (PCR) Neg for Influ A (Neg) Influenza Type B (PCR) Neg for Influ B (Neg) Administered Medications Albuterol (Duoneb) 3 ml NEB QIDR MARY Stop: 02/17/19 14:59 Last Admin: 01/18/19 15:38 Dose: Not Given Documented by: [id number] Miscellaneous (Order Awaiting Action) 1 ea N/A QS [facility] Stop: 02/17/19 15:59 Last Admin: 01/18/19 16:31 Dose: Not Given Documented by: [id number] Discontinued Medications Acetaminophen (Tylenol) 1,000 mg PO NOW STA Stop: 01/18/19 12:10 Last Admin: 01/18/19 12:41 Dose: 1,000 mg Documented by: [id number] Albuterol (Duoneb) 12 ml INH ONE STA Stop: 01/18/19 11:36 Last Admin: 01/18/19 11:51 Dose: 12 ml Documented by: [id number] Heparin Sodium (Porcine) (Heparin Iv Bolus) 800 units IV Q1H MARY Stop: 01/18/19 17:16 Last Admin: 01/18/19 15:40 Dose: Not Given Documented by: [id number] Heparin Sodium (Porcine) (Heparin Iv Bolus) 2,000 units IV ONE ONE Stop: 01/18/19 15:05 Last Admin: 01/18/19 14:38 Dose: Not Given Documented by: [id number] Methylprednisolone (Solumedrol) 125 mg IV NOW STA Stop: 01/18/19 11:36 Last Admin: 01/18/19 11:47 Dose: 125 mg Documented by: [id number] Imaging Data Radiologist's Impression: Radiology results as stated below per my review and the radiologist's interpretation: SINGLE VIEW CHEST CLINICAL HISTORY: Dyspnea. FINDINGS: An AP, portable, upright chest radiograph is compared to study dated 09/26/2018 and correlated with chest CT dated 02/08/2017. The heart is enlarged noting atherosclerotic calcification of the thoracic aorta. There is bibasilar atelectasis. No airspace consolidation or large pleural effusion is identified. No pneumothorax is seen. The skeletal structures are osteopenic. The bony thorax is grossly intact. Degenerative changes noted in the thoracic spine. IMPRESSION: Mild cardiomegaly with no acute cardiopulmonary abnormality. Electronically signed by: Luigi García M.D. 01/18/2019 11:57 AM ECG Data Attestation: I personally reviewed and interpreted this ECG as follows: Indication: SOB/dyspnea Rate (beats per minute): 87 Rhythm: sinus rhythm Findings: + other (normal QRS), + 1st degree AV block, + PAC and + Q waves (Septal); no PVC, no ST depression and no ST elevation Blood Pressure Blood Pressure Findings: Elevated blood pressure Blood Pressure Disposition: further management by hospitalist Discharge Plan Visit Data *Final* Discharge Date/Time: 01/18/19 14:00 Chief Complaint: Shortness of Breath/Dyspnea Stated Complaint: SHORTNESS OF BREATH ED Provider: Dejon Evans Discharge Problem: Breath shortness, COPD exacerbation, Hypoxia, Anemia, mild, Fever, Chronic kidney disease with end stage renal failure on dialysis Patient Disposition: Admitted As Inpatient Discharge Instructions Interventions: ED Discharge Assessment Last Done: 01/18/19 14:00 Discharge Problem: Fever Qualifiers: Fever type: unspecified Qualified Code(s): R50.9 - Fever, unspecified The scribe's documentation has been prepared under my direction and personally reviewed by me in its entirety. I confirm that the note above accurately reflects all work, treatment, procedures, and medical decision making performed by me.
[2019-01-18] MEDS: HydrALAZINE TAB 50 MG TAB PO SCH ×2 (18:55→20:38)
[2019-01-18] MEDS: AZITHROMYCIN 500 MG in DEXTROSE 5% 250 ML IV SCH (19:30)
[2019-01-18] MEDS: SEVELAMER HCL 800 MG TABLET PO SCH (19:39)
[2019-01-18] MEDS: INSULIN ASPART 100 UNITS/ML 3 ML PEN SC SCH ×2 (19:59→20:40)
[2019-01-18] MEDS: FLUTICASONE/SALMETEROL 250/50 (ADVAIR) 14 PUFF/1 INHALER INH SCH (20:38)
[2019-01-18] MEDS: LOSARTAN POTASSIUM 50 MG TAB PO SCH (20:39)
[2019-01-18] MEDS ORDERED: INSULIN GLARGINE SOLOSTAR 100 UNITS/ML 3 ML PEN SC SCH (21:00)
[2019-01-18] MEDS ORDERED: INSULIN GLARGINE SOLOSTAR 100 UNITS/ML 3 ML PEN SC ONE (22:30)
[2019-01-19 05:35] LABS: Hematocrit (blood only) 27.5 % (37-47); Hemoglobin 9.4 g/dL (12.0-16.0); Mean Corpuscular Hemoglobin 38.5 pg (25-34); Mean Corpuscular Hgb Conc 34.2 g/dL (32-36); Mean Corpuscular Volume 112.7 fL (80-100); Mean Platelet Volume 10.1 fL (7.4-10.4); Platelet Count 137 K/uL (130-400); RDW Coefficient of Variation 13.6 % (11.5-14.5); RDW Standard Deviation 55.4 fL (36.4-46.3); Red Blood Count 2.44 M/uL (4.2-5.4); White Blood Count 7.86 K/uL (4.8-10.8)
[2019-01-19 06:23] LABS: BUN Creatinine Ratio 4.1 (10-20); Calcium 8.8 mg/dl (8.5-10.1); Creatinine Clr Calc Pharmacy 7.4 ml/min; Est GFR (African American) 5.6; Est GFR (Non-African American) 4.8; Magnesium 2.2 mg/dl (1.8-2.4); Phosphorus 4.2 mg/dl (2.5-4.9); Potassium 3.6 mmol/L (3.5-5.1)
[2019-01-19 06:24] LABS: Estimated Average Glucose 94 mg/dl; Hemoglobin A1C 4.9 % (4.5-5.6)
[2019-01-19] MEDS: ALBUT/IPRATROP 3MG/0.5MG NEB 3 ML VIAL NEB SCH ×4 (07:29→19:11)
[2019-01-19] MEDS: FLUTICASONE/SALMETEROL 250/50 (ADVAIR) 14 PUFF/1 INHALER INH SCH ×2 (08:24→20:28)
[2019-01-19] MEDS: INSULIN ASPART 100 UNITS/ML 3 ML PEN SC SCH ×4 (08:24→20:33)
[2019-01-19] MEDS: methylPREDNISolone 40 MG in SYRINGE 0 ML IV SCH (08:24)
[2019-01-19] MEDS: FLUTICASONE PROPIONATE NA SPR 16 GM BTL NAE SCH (08:24)
[2019-01-19] MEDS: INSULIN GLARGINE SOLOSTAR 100 UNITS/ML 3 ML PEN SQ SCH ×2 (08:25→20:28)
[2019-01-19] MEDS: SEVELAMER HCL 800 MG TABLET PO SCH ×3 (08:25→17:38)
[2019-01-19] MEDS: dilTIAZem HCL 120 MG CAPCR PO SCH (08:26)
[2019-01-19] MEDS: VALACYCLOVIR HCL 500 MG TABLET PO SCH (08:26)
[2019-01-19] MEDS: HydrALAZINE TAB 50 MG TAB PO SCH ×2 (08:26→20:28)
[2019-01-19] MEDS: prednisoLONE acetate 1% OP SUSP 5 ML BTL OPL SCH (08:27)
[2019-01-19] MEDS: TIOTROPIUM BROMIDE 5 PUFF/90 MCG INH INH SCH (11:53)
[2019-01-19] MEDS: NEPHROCAPS PO SCH (11:53)
--- NOTE | 2019-01-19 16:15 | Hospitalist Progress Note ---
Date of Service January 19, 2019 Assessment & Plan (1) COPD exacerbation: (2) Chronic respiratory failure with hypoxia: Patient is a 73-year-old female with history of end-stage renal disease on dialysis, DM II, chronic anemia, HTN, diastolic dysfunction, PAF, COPD, chronic respiratory failure on 3L O2, tobacco use presents with history of worsening cough with expectoration, shortness of breath since couple of days. Acute on chronic respiratory failure with hypoxia Acute COPD exacerbation CXR: Mild cardiomegaly with no acute cardiopulmonary abnormality Negative influenza screen Blood culture: pending Sputum culture: pending Continue Azithromycin, Nebs, Solumedrol Continue supplemental oxygen (3) ESRD (end stage renal disease) on dialysis: On Tue schedule Continue home renal meds Appreciate nephrology help Avoid nephrotoxic agents when possible Hemodialysis as per nephrology (4) DM type 2 (diabetes mellitus, type 2): A1c: 6.3 on 09/27/18 Hold home insulin Novolog, Lantus sliding scale per protocol (5) Anemia of chronic disease: Hgb: 10. Baseline in 10's Receives Procrit Monitor CBC (6) A-fib: H/O P.Afib Not on anticoagulation secondary to h/o GI bleed Continue Cardizem (7) HTN (hypertension): Blood pressure slightly elevated Continue diltiazem, hydralazine, losartan Monitor (8) Diastolic CHF: Monitor volume status On dialysis (9) Tobacco use: Decreased to 1 cigarette every couple of days Counseled to quit smoking DVT Px SCDs Re: H/O GI bleed CODE STATUS Full Code Disposition Expect to discharge home in stable Subjective Patient is seen and examined at bedside States having cough with expectoration Shortness of breath improved Denies any chest pain, nausea, abdominal pain, dizziness Offers no other complaints Review of Systems Review of Systems: All systems reviewed & are unremarkable except as noted in HPI & below Physical Exam Physical Exam: Physical Exam: Vitals signs as noted above General Appearance: Chronically appearing, no apparent distress, obese Head: normocephalic, Atraumatic Eyes: normal inspection, EOMI Neck: supple, Trachea midline Respiratory/Chest: Decreased breath sounds, CTA Cardiovascular: S1, S2, No murmur Abdomen/GI:Soft, Non tender, Bowel sounds present Extremities/Musculoskelatal:normal inspection, no edema Neurologic/Psych:AAOX3, grossly no focal neurological deficits Skin: normal color, warm Results & Data Vital Signs (Past 12 Hours) Vital Signs Temp Pulse Pulse Pulse Resp BP Pulse Ox 01/19/19 15:56 37.1 C 74 20 145/54 H 94 01/19/19 11:40 37.0 C 76 20 150/69 H 92 01/19/19 11:11 76 18 93 01/19/19 08:46 69 01/19/19 08:14 36.8 C 72 20 147/78 H 96 01/19/19 07:29 70 16 96 Laboratory Results Short CBC 01/19/19 Range/Units 05:15 WBC 7.86 (4.8-10.8) K/uL Hgb 9.4 L (12.0-16.0) g/dL Hct 27.5 L (37-47) % Plt Count 137 (130-400) K/uL BMP 01/19/19 05:15 Sodium 137 Potassium 3.6 Chloride 101 Carbon Dioxide 27 BUN 31 H Creatinine 7.69 H* D Glucose 147 H Calcium 8.8
[2019-01-19] MEDS: AZITHROMYCIN 500 MG in DEXTROSE 5% 250 ML IV SCH (17:41)
[2019-01-19] MEDS: LOSARTAN POTASSIUM 50 MG TAB PO SCH (20:28)
[2019-01-20 05:57] LABS: Hematocrit (blood only) 28.9 % (37-47); Hemoglobin 9.4 g/dL (12.0-16.0); Mean Corpuscular Hemoglobin 37.5 pg (25-34); Mean Corpuscular Hgb Conc 32.5 g/dL (32-36); Mean Corpuscular Volume 115.1 fL (80-100); Mean Platelet Volume 10.5 fL (7.4-10.4); Platelet Count 169 K/uL (130-400); RDW Coefficient of Variation 13.8 % (11.5-14.5); RDW Standard Deviation 58.7 fL (36.4-46.3); Red Blood Count 2.51 M/uL (4.2-5.4)
[2019-01-20 06:40] LABS: BUN Creatinine Ratio 5.8 (10-20); Calcium 8.6 mg/dl (8.5-10.1); Creatinine Clr Calc Pharmacy 5.4 ml/min; Est GFR (African American) 3.9; Est GFR (Non-African American) 3.3; Potassium 3.5 mmol/L (3.5-5.1)
[2019-01-20] MEDS ORDERED: EPOETIN ALFA 10,000 UNITS/ML VIAL IV ONE (07:00)
[2019-01-20] MEDS ORDERED: HEPARIN SOD (PORCINE) 1000 UNIT/ML 10 ML VIAL IV ONE (07:00)
[2019-01-20] MEDS ORDERED: SODIUM CHLORIDE 0.9% 1000ML 1,000 ML IV PRN (07:00)
[2019-01-20] MEDS: ALBUT/IPRATROP 3MG/0.5MG NEB 3 ML VIAL NEB SCH ×4 (07:03→18:55)
[2019-01-20] MEDS: INSULIN ASPART 100 UNITS/ML 3 ML PEN SC SCH ×4 (08:17→20:20)
[2019-01-20] MEDS: FLUTICASONE/SALMETEROL 250/50 (ADVAIR) 14 PUFF/1 INHALER INH SCH ×2 (08:18→20:16)
[2019-01-20] MEDS: SEVELAMER HCL 800 MG TABLET PO SCH ×3 (08:19→17:12)
[2019-01-20] MEDS: VALACYCLOVIR HCL 500 MG TABLET PO SCH (08:19)
[2019-01-20] MEDS: TIOTROPIUM BROMIDE 5 PUFF/90 MCG INH INH SCH (08:20)
[2019-01-20] MEDS: FLUTICASONE PROPIONATE NA SPR 16 GM BTL NAE SCH (08:20)
[2019-01-20] MEDS: INSULIN GLARGINE SOLOSTAR 100 UNITS/ML 3 ML PEN SQ SCH ×2 (08:21→20:18)
[2019-01-20] MEDS: prednisoLONE acetate 1% OP SUSP 5 ML BTL OPL SCH (08:21)
[2019-01-20] MEDS: methylPREDNISolone 40 MG in SYRINGE 0 ML IV SCH (08:29)
[2019-01-20] MEDS: HEPARIN SOD (PORCINE) 1000 UNIT/ML 10 ML VIAL IV SCH ×3 (10:10→13:57)
[2019-01-20] MEDS: dilTIAZem HCL 120 MG CAPCR PO SCH (13:56)
[2019-01-20] MEDS: NEPHROCAPS PO SCH (13:56)
[2019-01-20] MEDS: DOXYCYCLINE HYCLATE 100 MG CAP PO SCH ×2 (13:56→20:21)
[2019-01-20] MEDS: HydrALAZINE TAB 50 MG TAB PO SCH ×2 (13:57→20:18)
--- NOTE | 2019-01-20 16:32 | Hospitalist Progress Note ---
Date of Service January 20, 2019 Assessment & Plan (1) COPD exacerbation: (2) Chronic respiratory failure with hypoxia: Patient is a 73-year-old female with history of end-stage renal disease on dialysis, DM II, chronic anemia, HTN, diastolic dysfunction, PAF, COPD, chronic respiratory failure on 3L O2, tobacco use presents with history of worsening cough with expectoration, shortness of breath since couple of days. Acute on chronic respiratory failure with hypoxia Acute COPD exacerbation CXR: Mild cardiomegaly with no acute cardiopulmonary abnormality Negative influenza screen Blood culture: No growth to date Sputum culture: pending Continue Azithromycin, Nebs, Solumedrol Continue supplemental oxygen Antitussives PRN (3) ESRD (end stage renal disease) on dialysis: On Tue schedule Continue home renal meds Appreciate nephrology help Avoid nephrotoxic agents when possible Hemodialysis as per nephrology (4) DM type 2 (diabetes mellitus, type 2): A1c: 6.3 on 09/27/18 Hold home insulin Novolog, Lantus sliding scale per protocol (5) Anemia of chronic disease: Hgb: 10. Baseline in 10's Receives Procrit Monitor CBC (6) A-fib: H/O P.Afib Not on anticoagulation secondary to h/o GI bleed Continue Cardizem (7) HTN (hypertension): Blood pressure slightly elevated Continue diltiazem, hydralazine, losartan Monitor (8) Diastolic CHF: Monitor volume status On dialysis (9) Tobacco use: Decreased to 1 cigarette every couple of days Counseled to quit smoking DVT Px SCDs Re: H/O GI bleed CODE STATUS Full Code Disposition Expect to discharge home in stable Subjective Patient is seen and examined at bedside Getting Dialysis earlier today States having significant cough with expectoration Denies SOB today Denies any chest pain, nausea, abdominal pain, dizziness Offers no other complaints Review of Systems Review of Systems: All systems reviewed & are unremarkable except as noted in HPI & below Physical Exam Physical Exam: Physical Exam: Vitals signs as noted above General Appearance: Chronically appearing, no apparent distress, obese Head: normocephalic, Atraumatic Eyes: normal inspection, EOMI Neck: supple, Trachea midline Respiratory/Chest: Decreased breath sounds, CTA Cardiovascular: S1, S2, No murmur Abdomen/GI:Soft, Non tender, Bowel sounds present Extremities/Musculoskelatal:normal inspection, no edema Neurologic/Psych:AAOX3, grossly no focal neurological deficits Skin: normal color, warm Results & Data Vital Signs (Past 12 Hours) Vital Signs Temp Pulse Pulse Pulse Resp BP BP 01/20/19 15:31 77 01/20/19 15:10 73 18 01/20/19 14:00 36.9 C 75 18 159/64 H 01/20/19 13:36 37.3 C 74 151/68 H 01/20/19 13:00 73 150/59 H 01/20/19 12:40 75 160/68 H 01/20/19 12:20 72 159/59 H 01/20/19 12:00 73 145/58 H 01/20/19 11:40 72 134/52 L 01/20/19 11:20 71 134/58 L 01/20/19 11:00 78 130/50 L 01/20/19 10:40 72 138/63 01/20/19 10:20 74 112/54 L 01/20/19 10:00 69 148/64 H 01/20/19 09:40 67 158/54 H 01/20/19 09:23 67 01/20/19 09:20 70 151/59 H 01/20/19 09:05 36.7 C 72 01/20/19 07:55 36.8 C 69 20 163/67 H 01/20/19 07:03 67 18 Pulse Ox 01/20/19 15:31 01/20/19 15:10 96 01/20/19 14:00 94 01/20/19 13:36 01/20/19 13:00 01/20/19 12:40 01/20/19 12:20 01/20/19 12:00 01/20/19 11:40 01/20/19 11:20 01/20/19 11:00 01/20/19 10:40 01/20/19 10:20 01/20/19 10:00 01/20/19 09:40 01/20/19 09:23 01/20/19 09:20 01/20/19 09:05 01/20/19 07:55 98 01/20/19 07:03 97 Laboratory Results Short CBC 01/20/19 Range/Units 05:32 WBC 8.80 (4.8-10.8) K/uL Hgb 9.4 L (12.0-16.0) g/dL Hct 28.9 L (37-47) % Plt Count 169 (130-400) K/uL [facility] 01/20/19 05:32 Sodium 137 Potassium 3.5 Chloride 101 Carbon Dioxide 26 BUN 60 H D Creatinine 10.40 H* D Glucose 111 H Calcium 8.6
--- NOTE | 2019-01-20 18:43 | Nephrology Progress Note ---
Date of Service January 20, 2019 Assessment & Plan (1) Chronic kidney disease with end stage renal failure on dialysis: esrd on TRSat HD via AVF -Tolerated HD today , goal 2L fluid removal -chemistries acceptable and not markedly overloaded >> plan next HD on 01/23 or as clinical status dictates (2) COPD exacerbation: She is on prednisone. s/p Azithromycin. Improving (3) Anemia of chronic disease: hgb 9.4 today; cont antonieta w/ HD; monitor daily or at least q48 hrs Subjective Patient seen and examined while on dialysis. Seen during morning rounds. No chest pain or SOB. No leg swelling. She has cough. Review of Systems Review of Systems: All systems reviewed & are unremarkable except as noted in HPI & below Physical Exam Physical Exam: General exam: Appears comfortable, no acute distress HEENT: Pupils are equal and reactive to light Neck: No JVD, neck is supple trachea is midline Respiratory system: Clear breath sounds bilaterally. Gastrointestinal: Abdomen is soft, non distended, non tender, bowel sounds are present CVS: Regular rate and rhythm. No murmurs, rubs or gallops Musculoskeletal: No joint or muscle tenderness Extremities: Non tender, no edema, peripheral pulses are present Neuro: Oriented, no tremors, no focal neurological deficits Skin: No rashes Access: left AVF Results & Data Vital Signs (Past 12 Hours) Vital Signs Temp Pulse Pulse Pulse Resp BP BP 01/20/19 15:31 77 01/20/19 15:10 73 18 01/20/19 14:00 36.9 C 75 18 159/64 H 01/20/19 13:36 37.3 C 74 151/68 H 01/20/19 13:00 73 150/59 H 01/20/19 12:40 75 160/68 H 01/20/19 12:20 72 159/59 H 01/20/19 12:00 73 145/58 H 01/20/19 11:40 72 134/52 L 01/20/19 11:20 71 134/58 L 01/20/19 11:00 78 130/50 L 01/20/19 10:40 72 138/63 01/20/19 10:20 74 112/54 L 01/20/19 10:00 69 148/64 H 01/20/19 09:40 67 158/54 H 01/20/19 09:23 67 01/20/19 09:20 70 151/59 H 01/20/19 09:05 36.7 C 72 01/20/19 07:55 36.8 C 69 20 163/67 H 01/20/19 07:03 67 18 Pulse Ox 01/20/19 15:31 01/20/19 15:10 96 01/20/19 14:00 94 01/20/19 13:36 01/20/19 13:00 01/20/19 12:40 01/20/19 12:20 01/20/19 12:00 01/20/19 11:40 01/20/19 11:20 01/20/19 11:00 01/20/19 10:40 01/20/19 10:20 01/20/19 10:00 01/20/19 09:40 01/20/19 09:23 01/20/19 09:20 01/20/19 09:05 01/20/19 07:55 98 01/20/19 07:03 97 Laboratory Results Laboratory Results - last 24 hr 01/19/19 01/20/19 01/20/19 20:01 05:32 05:32 WBC 8.80 RBC 2.51 L Hgb 9.4 L Hct 28.9 L MCV 115.1 H MCH 37.5 H MCHC 32.5 RDW Std Deviation 58.7 H RDW Coeff of Fior 13.8 Plt Count 169 MPV 10.5 H Sodium 137 Potassium 3.5 Chloride 101 Carbon Dioxide 26 Anion Gap 10.0 BUN 60 H D Creatinine 10.40 H* D Est Cr Clr Drug Dosing 5.4 Est GFR ( Amer) 3.9 Est GFR (Non-Af Amer) 3.3 BUN/Creatinine Ratio 5.8 L Glucose 111 H POC Glucose 175 H Calcium 8.6 Iron 45 Transferrin 142 L Transferrin % Sat 22 01/20/19 01/20/19 01/20/19 07:39 14:02 16:38 WBC RBC Hgb Hct MCV MCH MCHC RDW Std Deviation RDW Coeff of Fior Plt Count MPV Sodium Potassium Chloride Carbon Dioxide Anion Gap BUN Creatinine Est Cr Clr Drug Dosing Est GFR ( Amer) Est GFR (Non-Af Amer) BUN/Creatinine Ratio Glucose POC Glucose 88 179 H 251 H Calcium Iron Transferrin Transferrin % Sat
[2019-01-20] MEDS: LOSARTAN POTASSIUM 50 MG TAB PO SCH (20:18)
[2019-01-21 06:17] LABS: Hematocrit (blood only) 30.9 % (37-47); Hemoglobin 10.1 g/dL (12.0-16.0)
[2019-01-21] MEDS: ALBUT/IPRATROP 3MG/0.5MG NEB 3 ML VIAL NEB SCH ×4 (06:46→19:23)
[2019-01-21] MEDS: HydrALAZINE TAB 50 MG TAB PO SCH ×2 (08:12→20:33)
[2019-01-21] MEDS: dilTIAZem HCL 120 MG CAPCR PO SCH (08:13)
[2019-01-21] MEDS: BENZONATATE 100 MG CAPSULE PO PRN (08:13)
[2019-01-21] MEDS: methylPREDNISolone 40 MG in SYRINGE 0 ML IV SCH (08:13)
[2019-01-21] MEDS: DOXYCYCLINE HYCLATE 100 MG CAP PO SCH ×2 (08:13→20:32)
[2019-01-21] MEDS: SEVELAMER HCL 800 MG TABLET PO SCH ×3 (08:13→17:10)
[2019-01-21] MEDS: TIOTROPIUM BROMIDE 5 PUFF/90 MCG INH INH SCH (08:14)
[2019-01-21] MEDS: FLUTICASONE/SALMETEROL 250/50 (ADVAIR) 14 PUFF/1 INHALER INH SCH ×2 (08:14→20:32)
[2019-01-21] MEDS: FLUTICASONE PROPIONATE NA SPR 16 GM BTL NAE SCH (08:14)
[2019-01-21] MEDS: INSULIN GLARGINE SOLOSTAR 100 UNITS/ML 3 ML PEN SQ SCH ×2 (08:15→20:33)
[2019-01-21] MEDS: prednisoLONE acetate 1% OP SUSP 5 ML BTL OPL SCH (08:15)
[2019-01-21] MEDS: INSULIN ASPART 100 UNITS/ML 3 ML PEN SC SCH ×4 (08:15→20:34)
[2019-01-21] MEDS: VALACYCLOVIR HCL 500 MG TABLET PO SCH (08:25)
--- NOTE | 2019-01-21 11:13 | Nephrology Progress Note ---
Date of Service January 21, 2019 Assessment & Plan (1) Chronic kidney disease with end stage renal failure on dialysis: esrd on TRSat HD via AVF -Tolerated HD yesterday with net UF of 2 L.l -chemistries acceptable and not markedly overloaded >> plan next HD on 01/23 or as clinical status dictates (2) COPD exacerbation: She is on prednisone. s/p Azithromycin. Improving (3) Anemia of chronic disease: hgb 9.4 today; cont antonieta w/ HD; monitor daily or at least q48 hrs Subjective Patient feels better this morning. She tolerated dialysis well yesterday. She still has intermittent shortness of breath. She is continuing steroids Review of Systems Review of Systems: All systems reviewed & are unremarkable except as noted in HPI & below Physical Exam Physical Exam: General exam: Appears comfortable, no acute distress HEENT: Pupils are equal and reactive to light Neck: No JVD, neck is supple trachea is midline Respiratory system: Clear breath sounds bilaterally. Gastrointestinal: Abdomen is soft, non distended, non tender, bowel sounds are present CVS: Regular rate and rhythm. No murmurs, rubs or gallops Musculoskeletal: No joint or muscle tenderness Extremities: Non tender, no edema, peripheral pulses are present Neuro: Oriented, no tremors, no focal neurological deficits Skin: No rashes Results & Data Vital Signs (Past 12 Hours) Vital Signs Temp Pulse Pulse Resp BP Pulse Ox 01/21/19 10:59 71 18 96 01/21/19 07:58 36.8 C 67 20 148/73 H 97 01/21/19 07:44 73 01/21/19 06:46 67 18 98 01/21/19 04:00 36.8 C 70 20 154/53 H 98 01/21/19 00:02 37.0 C 75 20 145/59 H 94 Laboratory Results Laboratory Results - last 24 hr 01/20/19 01/20/19 01/20/19 14:02 16:38 20:08 Hgb Hct POC Glucose 179 H 251 H 201 H 01/21/19 01/21/19 05:36 07:50 Hgb 10.1 L Hct 30.9 L POC Glucose 94
[2019-01-21] MEDS: NEPHROCAPS PO SCH (12:14)
--- NOTE | 2019-01-21 14:37 | Hospitalist Progress Note ---
Date of Service January 21, 2019 Assessment & Plan (1) COPD exacerbation: (2) Chronic respiratory failure with hypoxia: Patient is a 73-year-old female with history of end-stage renal disease on dialysis, DM II, chronic anemia, HTN, diastolic dysfunction, PAF, COPD, chronic respiratory failure on 3L O2, tobacco use presents with history of worsening cough with expectoration, shortness of breath since couple of days. Acute on chronic respiratory failure with hypoxia Acute COPD exacerbation CXR: Mild cardiomegaly with no acute cardiopulmonary abnormality Negative influenza screen Blood culture: No growth to date Continue Doxycycline, Nebs, Solumedrol Continue supplemental oxygen Antitussives PRN Continue current meds (3) ESRD (end stage renal disease) on dialysis: On Tue schedule Continue home renal meds Appreciate nephrology help Avoid nephrotoxic agents when possible Hemodialysis as per nephrology (4) DM type 2 (diabetes mellitus, type 2): A1c: 6.3 on 09/27/18 Hold home insulin Novolog, Lantus sliding scale per protocol (5) Anemia of chronic disease: Hgb: 10. Baseline in 10's Receives Procrit Monitor CBC (6) A-fib: H/O P.Afib Not on anticoagulation secondary to h/o GI bleed Continue Cardizem (7) HTN (hypertension): Blood pressure slightly elevated Continue diltiazem, hydralazine, losartan Monitor (8) Diastolic CHF: Monitor volume status On dialysis (9) Tobacco use: Decreased to 1 cigarette every couple of days Counseled to quit smoking DVT Px SCDs Re: H/O GI bleed CODE STATUS Full Code Disposition Expect to discharge home in stable Subjective Patient is seen and examined at bedside Less cough and SOB today No new complaints Denies any chest pain, nausea, abdominal pain, dizziness Review of Systems Review of Systems: All systems reviewed & are unremarkable except as noted in HPI & below Physical Exam Physical Exam: Physical Exam: Vitals signs as noted above General Appearance: Chronically appearing, no apparent distress, obese Head: normocephalic, Atraumatic Eyes: normal inspection, EOMI Neck: supple, Trachea midline Respiratory/Chest: Decreased breath sounds, CTA Cardiovascular: S1, S2, No murmur Abdomen/GI:Soft, Non tender, Bowel sounds present Extremities/Musculoskelatal:normal inspection, no edema Neurologic/Psych:AAOX3, grossly no focal neurological deficits Skin: normal color, warm Results & Data Vital Signs (Past 12 Hours) Vital Signs Temp Pulse Pulse Resp BP Pulse Ox 01/21/19 13:05 36.7 C 68 20 154/54 H 97 01/21/19 10:59 71 18 96 01/21/19 07:58 36.8 C 67 20 148/73 H 97 01/21/19 07:44 73 01/21/19 06:46 67 18 98 01/21/19 04:00 36.8 C 70 20 154/53 H 98 Laboratory Results Short CBC 01/21/19 Range/Units 05:36 Hgb 10.1 L (12.0-16.0) g/dL Hct 30.9 L (37-47) %
[2019-01-21] MEDS: LOSARTAN POTASSIUM 50 MG TAB PO SCH (20:32)
[2019-01-22 06:57] LABS: BUN Creatinine Ratio 7.8 (10-20); Creatinine Clr Calc Pharmacy 4.7 ml/min; Est GFR (African American) 3.3; Est GFR (Non-African American) 2.8; Potassium 4.5 mmol/L (3.5-5.1)
[2019-01-22] MEDS: ALBUT/IPRATROP 3MG/0.5MG NEB 3 ML VIAL NEB SCH ×4 (07:05→19:40)
[2019-01-22] MEDS: SEVELAMER HCL 800 MG TABLET PO SCH ×3 (08:18→17:34)
[2019-01-22] MEDS: VALACYCLOVIR HCL 500 MG TABLET PO SCH (08:19)
[2019-01-22] MEDS: DOXYCYCLINE HYCLATE 100 MG CAP PO SCH ×2 (08:20→20:28)
[2019-01-22] MEDS: TIOTROPIUM BROMIDE 5 PUFF/90 MCG INH INH SCH (08:21)
[2019-01-22] MEDS: dilTIAZem HCL 120 MG CAPCR PO SCH (08:21)
[2019-01-22] MEDS: FLUTICASONE PROPIONATE NA SPR 16 GM BTL NAE SCH (08:22)
[2019-01-22] MEDS: prednisoLONE acetate 1% OP SUSP 5 ML BTL OPL SCH (08:22)
[2019-01-22] MEDS: FLUTICASONE/SALMETEROL 250/50 (ADVAIR) 14 PUFF/1 INHALER INH SCH ×2 (08:23→20:27)
[2019-01-22] MEDS: HydrALAZINE TAB 50 MG TAB PO SCH ×2 (08:23→20:28)
[2019-01-22] MEDS: INSULIN GLARGINE SOLOSTAR 100 UNITS/ML 3 ML PEN SQ SCH ×2 (08:24→20:25)
[2019-01-22] MEDS: INSULIN ASPART 100 UNITS/ML 3 ML PEN SC SCH ×4 (08:25→20:24)
[2019-01-22] MEDS: methylPREDNISolone 40 MG in SYRINGE 0 ML IV SCH (10:56)
[2019-01-22] MEDS: NEPHROCAPS PO SCH (12:27)
--- NOTE | 2019-01-22 18:30 | Hospitalist Progress Note ---
Date of Service January 22, 2019 Assessment & Plan (1) COPD exacerbation: (2) Chronic respiratory failure with hypoxia: Patient is a 73-year-old female with history of end-stage renal disease on dialysis, DM II, chronic anemia, HTN, diastolic dysfunction, PAF, COPD, chronic respiratory failure on 3L O2, tobacco use presents with history of worsening cough with expectoration, shortness of breath since couple of days. Acute on chronic respiratory failure with hypoxia Acute COPD exacerbation CXR: Mild cardiomegaly with no acute cardiopulmonary abnormality Negative influenza screen Blood culture: No growth to date Continue Doxycycline, Nebs, Solu-medrol Continue supplemental oxygen Antitussives PRN Clinically improving (3) ESRD (end stage renal disease) on dialysis: On Tue schedule Continue home renal meds Appreciate nephrology help Avoid nephrotoxic agents when possible Hemodialysis as per nephrology Plan for dialysis tomorrow (4) DM type 2 (diabetes mellitus, type 2): A1c: 6.3 on 09/27/18 Hold home insulin Novolog, Lantus sliding scale per protocol (5) Anemia of chronic disease: Hgb: 10. Baseline in 10's Receives Procrit Monitor CBC (6) A-fib: H/O P.Afib Not on anticoagulation secondary to h/o GI bleed Continue Cardizem (7) HTN (hypertension): Blood pressure slightly elevated Continue diltiazem, hydralazine, losartan Monitor (8) Diastolic CHF: Monitor volume status On dialysis (9) Tobacco use: Decreased to 1 cigarette every couple of days Counseled to quit smoking DVT Px SCDs Re: H/O GI bleed CODE STATUS Full Code Disposition PT OT prior to discharge Expect to discharge home in stable Subjective Patient is seen and examined at bedside No new complaints Cough continues to improve Denies any shortness of breath today Also denies any chest pain, nausea, abdominal pain, dizziness Review of Systems Review of Systems: All systems reviewed & are unremarkable except as noted in HPI & below Physical Exam Physical Exam: Physical Exam: Vitals signs as noted above General Appearance: Chronically appearing, no apparent distress, obese Head: normocephalic, Atraumatic Eyes: normal inspection, EOMI Neck: supple, Trachea midline Respiratory/Chest: Decreased breath sounds, CTA Cardiovascular: S1, S2, No murmur Abdomen/GI:Soft, Non tender, Bowel sounds present Extremities/Musculoskelatal:normal inspection, no edema Neurologic/Psych:AAOX3, grossly no focal neurological deficits Skin: normal color, warm Results & Data Vital Signs (Past 12 Hours) Vital Signs Temp Pulse Pulse Resp BP Pulse Ox 01/22/19 16:06 66 01/22/19 15:52 36.7 C 66 18 151/72 H 94 01/22/19 15:10 83 18 96 01/22/19 11:35 36.9 C 69 16 149/61 H 92 01/22/19 11:24 70 18 94 01/22/19 07:33 36.4 C L 70 16 147/57 H 99 01/22/19 07:12 70 01/22/19 07:07 91 H 18 98 Laboratory Results BMP 01/22/19 05:45 Sodium 138 Potassium 4.5 Chloride 105 Carbon Dioxide 22 BUN 93 H Creatinine 12.00 H* Glucose 115 H Calcium 9.0
[2019-01-22] MEDS: LOSARTAN POTASSIUM 50 MG TAB PO SCH (20:28)
[2019-01-23] MEDS: BENZONATATE 100 MG CAPSULE PO PRN (06:15)
[2019-01-23] MEDS: ALBUT/IPRATROP 3MG/0.5MG NEB 3 ML VIAL NEB SCH ×3 (07:16→15:07)
[2019-01-23] MEDS ORDERED: HEPARIN SOD (PORCINE) 1000 UNIT/ML 10 ML VIAL IV ONE (07:49)
[2019-01-23] MEDS ORDERED: SODIUM CHLORIDE 0.9% 1000ML 1,000 ML IV PRN (07:49)
[2019-01-23 08:00] LABS: BUN Creatinine Ratio 8.8 (10-20); Calcium 8.7 mg/dl (8.5-10.1); Est GFR (African American) 2.7; Est GFR (Non-African American) 2.3; Potassium 5.1 mmol/L (3.5-5.1)
[2019-01-23] MEDS: SEVELAMER HCL 800 MG TABLET PO SCH ×3 (08:15→17:30)
[2019-01-23] MEDS: FLUTICASONE/SALMETEROL 250/50 (ADVAIR) 14 PUFF/1 INHALER INH SCH (08:16)
[2019-01-23] MEDS: TIOTROPIUM BROMIDE 5 PUFF/90 MCG INH INH SCH (08:16)
[2019-01-23] MEDS: FLUTICASONE PROPIONATE NA SPR 16 GM BTL NAE SCH (08:17)
[2019-01-23] MEDS: INSULIN ASPART 100 UNITS/ML 3 ML PEN SC SCH ×3 (08:18→17:32)
[2019-01-23] MEDS: INSULIN GLARGINE SOLOSTAR 100 UNITS/ML 3 ML PEN SQ SCH (08:22)
[2019-01-23] MEDS: prednisoLONE acetate 1% OP SUSP 5 ML BTL OPL SCH (08:25)
[2019-01-23] MEDS ORDERED: EPOETIN ALFA 4,000 UNIT/ML VIAL IV ONE (08:30)
[2019-01-23] MEDS ORDERED: IRON SUCROSE 50 MG in SYRINGE 0 ML IV ONE (08:30)
[2019-01-23] MEDS: HEPARIN SOD (PORCINE) 1000 UNIT/ML 10 ML VIAL IV SCH ×3 (10:00→12:06)
--- NOTE | 2019-01-23 11:36 | Nephrology Progress Note ---
Date of Service January 23, 2019 Assessment & Plan (1) Chronic kidney disease with end stage renal failure on dialysis: esrd on TRSat HD via AVF -for routine HD today w/ goal UF 2L -chemistries acceptable and not markedly overloaded >> plan next HD on 01/25 or as clinical status dictates; for possible d/c later today (2) COPD exacerbation: She is on prednisone and nebulizers. s/p Azithromycin. Improving (3) Anemia of chronic disease: hgb just over 10 today; cont antonieta w/ HD but lower dose in response to improvement; monitor daily or at least q48 hrs Subjective pt seen on rounds this am at 0840; states was up all night coughing; breathing overall improved though. no n/v. no edema or chest pain. Review of Systems Review of Systems: All systems reviewed & are unremarkable except as noted in HPI & below Physical Exam Constitutional: well developed, well nourished and cooperative still tired appearing but looks better than at last eval Eyes: EOM intact bilaterally ENMT: Ears: no external ear abnormality Nose: no external nose abnormality Mouth: + dry oral mucous membranes Neck: no nuchal rigidity Respiratory: normal respiratory effort Auscultation: + diminished lung sounds and + rhonchi Cardiovascular: Rate/Rhythm: regular rate and regular rhythm Extremities: + edema (trace ble) and + AV fistula (+ t/b) Gastrointestinal (Abdomen): Inspection/Auscultation: normal bowel sounds Percussion/Palpation: abdomen soft; abdomen nontender Musculoskeletal: Extremities: strength 5/5 throughout Skin: no rashes, warm and dry Neurologic: Motor/Sensory: normal movement Psychiatric: Orientation: oriented x 3 (though nurse reports some confusion earlier) Results & Data Vital Signs (Past 12 Hours) Vital Signs Temp Pulse Pulse Pulse Resp BP BP 01/23/19 11:00 64 126/64 01/23/19 10:40 62 138/60 01/23/19 10:20 63 139/61 01/23/19 10:00 65 128/56 L 01/23/19 09:40 63 150/61 H 01/23/19 09:20 68 145/56 H 01/23/19 09:07 64 162/65 H 01/23/19 08:57 36.4 C L 67 01/23/19 07:32 36.8 C 70 14 148/70 H 01/23/19 07:27 65 01/23/19 07:18 65 18 01/23/19 03:55 36.5 C 66 18 150/56 H 01/22/19 23:46 36.5 C 71 18 155/62 H 01/22/19 23:35 67 Pulse Ox 01/23/19 11:00 01/23/19 10:40 01/23/19 10:20 01/23/19 10:00 01/23/19 09:40 01/23/19 09:20 01/23/19 09:07 01/23/19 08:57 01/23/19 07:32 99 01/23/19 07:27 01/23/19 07:18 98 01/23/19 03:55 97 01/22/19 23:46 94 01/22/19 23:35 Laboratory Results 01/21/19 05:36 01/23/19 06:55
--- NOTE | 2019-01-23 12:46 | Hospitalist Progress Note ---
Date of Service January 23, 2019 Assessment & Plan (1) COPD exacerbation: (2) Chronic respiratory failure with hypoxia: Patient is a 73-year-old female with history of end-stage renal disease on dialysis, DM II, chronic anemia, HTN, diastolic dysfunction, PAF, COPD, chronic respiratory failure on 3L O2, tobacco use presents with history of worsening cough with expectoration, shortness of breath since couple of days. Acute on chronic respiratory failure with hypoxia Acute COPD exacerbation CXR: Mild cardiomegaly with no acute cardiopulmonary abnormality Negative influenza screen Blood culture: No growth to date Continue Doxycycline, Nebs Transition Solu-medrol to prednisone Continue supplemental oxygen Antitussives PRN Clinically improved (3) ESRD (end stage renal disease) on dialysis: On Tue schedule Continue home renal meds Appreciate nephrology help Avoid nephrotoxic agents when possible Hemodialysis as per nephrology (4) DM type 2 (diabetes mellitus, type 2): A1c: 6.3 on 09/27/18 Hold home insulin Novolog, Lantus sliding scale per protocol (5) Anemia of chronic disease: Hgb: 10. Baseline in 10's Receives Procrit Monitor CBC (6) A-fib: H/O P.Afib Not on anticoagulation secondary to h/o GI bleed Continue Cardizem (7) HTN (hypertension): Blood pressure slightly elevated Continue diltiazem, hydralazine, losartan Monitor (8) Diastolic CHF: Monitor volume status On dialysis (9) Tobacco use: Decreased to 1 cigarette every couple of days Counseled to quit smoking DVT Px SCDs Re: H/O GI bleed CODE STATUS Full Code Disposition Patient not interested in Rehab Plan to discharge home Subjective Patient is seen and examined at bedside Had HD earlier today Doing much better today Still has cough Denies any chest pain, SOB, nausea, abdominal pain, dizziness No other complaints Review of Systems Review of Systems: All systems reviewed & are unremarkable except as noted in HPI & below Physical Exam Physical Exam: Physical Exam: Vitals signs as noted above General Appearance: Chronically appearing, no apparent distress, obese Head: normocephalic, Atraumatic Eyes: normal inspection, EOMI Neck: supple, Trachea midline Respiratory/Chest: Decreased breath sounds, CTA Cardiovascular: S1, S2, No murmur Abdomen/GI:Soft, Non tender, Bowel sounds present Extremities/Musculoskelatal:normal inspection, no edema Neurologic/Psych:AAOX3, grossly no focal neurological deficits Skin: normal color, warm Results & Data Vital Signs (Past 12 Hours) Vital Signs Temp Pulse Pulse Pulse Resp BP BP 01/23/19 12:07 62 129/58 L 01/23/19 11:40 67 131/54 L 01/23/19 11:20 63 142/59 H 01/23/19 11:00 64 126/64 01/23/19 10:40 62 138/60 01/23/19 10:20 63 139/61 01/23/19 10:00 65 128/56 L 01/23/19 09:40 63 150/61 H 01/23/19 09:20 68 145/56 H 01/23/19 09:07 64 162/65 H 01/23/19 08:57 36.4 C L 67 01/23/19 07:32 36.8 C 70 14 148/70 H 01/23/19 07:27 65 01/23/19 07:18 65 18 01/23/19 03:55 36.5 C 66 18 150/56 H Pulse Ox 01/23/19 12:07 01/23/19 11:40 01/23/19 11:20 01/23/19 11:00 01/23/19 10:40 01/23/19 10:20 01/23/19 10:00 01/23/19 09:40 01/23/19 09:20 01/23/19 09:07 01/23/19 08:57 01/23/19 07:32 99 01/23/19 07:27 01/23/19 07:18 98 01/23/19 03:55 97 Laboratory Results BMP 01/23/19 06:55 Sodium 138 Potassium 5.1 Chloride 105 Carbon Dioxide 20 L BUN 124 H Creatinine 14.10 H* D Glucose 110 H Calcium 8.7
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
[2019-01-23] MEDS: DOXYCYCLINE HYCLATE 100 MG CAP PO SCH (13:53)
[2019-01-23] MEDS: HydrALAZINE TAB 50 MG TAB PO SCH (13:53)
[2019-01-23] MEDS: NEPHROCAPS PO SCH (13:53)
[2019-01-23] MEDS: dilTIAZem HCL 120 MG CAPCR PO SCH (13:53)
[2019-01-23 16:45] VITALS: BP 151/62; TEMP 98.4; O2SAT 96
[2019-01-23 17:14] VITALS: PULSE 76
[2019-01-23] MEDS ORDERED: VALACYCLOVIR HCL 500 MG TABLET PO SCH (21:00)
== END 2019-01-23 17:50 | disposition home or self-care (01) | DRG 190 ==
LOC: ED 10:55 → 2N 13:28 → SUATTDRO 13:28 → 2N 14:00

== ENCOUNTER 2019-04-05 16:06 | Inpatient (IN) ==
[2019-04-05] MEDS ORDERED: ALBUT/IPRATROP 3MG/0.5MG NEB 3 ML VIAL INH STA (16:39)
[2019-04-05] MEDS ORDERED: cefTRIAXone SODIUM 1,000 MG/50 ML BAG IV STA (16:43)
--- NOTE | 2019-04-05 16:50 | Emergency Department Note ---
Entered by Karishma Zuleta acting as a scribe for History of Present Illness General Chief complaint: Shortness of Breath/Dyspnea Stated complaint: SOB W/EXERTION Time Seen by Provider: 04/05/19 16:29 Source: patient Limitations: no limitations History of Present Illness Provider complaint: Shortness of breath Onset (ago): day(s) 3 Location: chest Pain Consistency: + constant Quality: + constant Exacerbated By: + movement Associated symptoms: + cough and + shortness of breath; no nausea/vomiting The patient is a 74 year old female with past medical history of COPD exacerbation, hypoxia, anemia, pneumonia, HCAP, DM type 2, psoriasis, who presents to the ED with complaints of constant shortness of breath that started 3 days ago. The patient reports she was bringing up clean, clear, and yellow mucous with the cough, however, she has a dry cough now. She notes her shortness of breath is worsened with walking. The patient states she wears 3 liters of oxygen at home. She denies nausea or vomiting. Home Medications Home Medications Medication Instructions Recorded Confirmed Type Basaglar KwikPen U-100 Insulin 26 unit SUBCUT QAM 09/26/18 04/05/19 History Arabella-Tika 0.8 mg PO QDL 09/26/18 04/05/19 History diltiazem HCl 120 mg PO QAM 09/26/18 04/05/19 History ergocalciferol (vitamin D2) 50,000 unit PO MONTHLY 09/26/18 04/05/19 History fluticasone propion-salmeterol 2 inh INHALATION BID 09/26/18 04/05/19 History [Advair Diskus] hydralazine 50 mg PO BID 09/26/18 04/05/19 History insulin aspart U-100 [Novolog 0 unit SUBCUT UD 09/26/18 04/05/19 History Flexpen U-100 Insulin] ipratropium-albuterol 3 ml INHALATION QID PRN 09/26/18 04/05/19 History losartan 100 mg PO HS 09/26/18 04/05/19 History prednisolone acetate 1 drp OPL QAM 09/26/18 04/05/19 History Incruse Ellipta 1 inh INHALATION QAM 01/18/19 04/05/19 History fluticasone propionate 2 spray INTRANASAL HS 01/18/19 04/05/19 History sevelamer carbonate 800 mg PO UD 01/18/19 04/05/19 History benzonatate [Tessalon Perles] 100 mg PO TID PRN #15 cap 01/23/19 04/05/19 Rx doxycycline hyclate 100 mg PO BID #6 cap 01/23/19 04/05/19 Rx valacyclovir 500 mg PO QAM #0 tab 01/23/19 04/05/19 Rx albuterol sulfate 1.25 mg INH TID 10 Days #45 ml 04/05/19 Rx doxycycline monohydrate 100 mg PO BID #20 cap 04/05/19 Rx Allergies Allergy/AdvReac Type Severity Reaction Status Date / Time No Known Allergies Allergy Verified 04/05/19 18:09 Past Med/Surg History Medical History A-fib (Chronic) "paroxysmal" Adrenal adenoma (Chronic) Anemia of chronic disease (Chronic) AV fistula (Chronic) Chronic respiratory failure with hypoxia (Chronic) COPD, moderate (Chronic) On 08/19/15 09:47 Mare Whyte wrote "2L O2 at home" Diastolic CHF (Chronic) DM type 2 (diabetes mellitus, type 2) (Chronic) Dyslipidemia (Chronic) ESRD (end stage renal disease) on dialysis (Chronic) GI bleed (Resolved) H/O cardiovascular stress test (Chronic) "05/2013 - negative for ischemia" Herpes simplex iridocyclitis (Chronic) History of Helicobacter pylori infection (Chronic) HTN (hypertension) (Chronic) Moderate mitral regurgitation (Chronic) "moderate to severe on 12/2015 echo" On 01/13/16 15:17 Blanca Chan wrote "echo 06/2015 - calcified mitral valve, moderate MR" Osteoarthritis (Chronic) Pancreatic cyst (Chronic) Psoriasis (Chronic) Renal cyst (Chronic) Tobacco use (Chronic) Surgical History H/O colonoscopy (Chronic) "2005, hyperplastic polyps repeat in 10 years " H/O nasal polypectomy (Chronic) History of cataract surgery (Chronic) S/P appendectomy (Chronic) "1971" S/P cholecystectomy (Chronic) "1971" S/P left oophorectomy (Chronic) "1981" S/P ASH (total abdominal hysterectomy) (Chronic) "For Fibroids " Family History Father Myocardial infarction, Onset Age: 64 Mother , 87 Alzheimer disease Social History Preferred Language: Romanian Communication Ability: Effective Economic Specialist 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 Beliefs That Will Affect Care: Zoroastrian marital status: / Current Living Situation: Alone current occupational status: retired Feels Safe at Home: Yes Smoking Status: Former smoker Tobacco Type: cigarettes ; Cigarettes Per Day: 1 cigarette every couple of days ; Second Hand Exposure: No ; Hx Alcohol Use: No Hx Substance Use: No Review of Systems See HPI for pertinent positives & negatives. and A total of 10 systems reviewed and were otherwise negative Physical Exam Vital Signs Vital Signs - 24 hr 04/05/19 16:20 04/05/19 16:52 04/05/19 17:48 Temperature 37.8 C H Temperature Source Oral Pulse Rate 88 Pulse Rate [Apical] 85 89 Pulse Rhythm Regular Pulse Rhythm [Apical] Regular Pulse Strength Normal Pulse Strength [Apical] Normal Respiratory Rate 18 20 26 H Respiratory Effort / Characteristics Non-Labored Spontaneous Non-Labored Spontaneous Non-Labored Spontaneous Respiratory Depth Normal Normal Respiratory Pattern Regular Regular Blood Pressure 156/61 H Blood Pressure [Right Arm] 140/71 Blood Pressure Mean 92 Blood Pressure Mean [Right Arm] 94 Blood Pressure Position Lying Blood Pressure Position [Right Arm] Sitting Pulse Oximetry 96 96 93 Oxygen Delivery Method Nasal Cannula Nasal Cannula Room Air Oxygen Flow Rate 3 3 Sepsis Recent Fever Within 48 Hours No Sepsis New/Unexplained Change in Mental Status No Sepsis Action Taken by Nursing No Action Required CONSTITUTIONAL/VITAL SIGNS: Reviewed / noted above. GENERAL: Non-toxic in appearance. INTEGUMENTARY: Warm, dry, and [place]. HEAD: Normocephalic. EYES: without scleral icterus or trauma. ENT/OROPHARYNX: clear and moist. LYMPHADENOPATHY/NECK: Is supple without lymphadenopathy or meningismus. RESPIRATORY: Lungs clear and equal but diminished in the bases. No increased work of breathing. CARDIOVASCULAR: Regular rate and rhythm. GI/ABDOMEN: Soft and nontender. No organomegaly or pulsatile mass. No rebound or guarding. Normal bowel sounds. EXTREMITIES: Warm and well perfused. BACK: No CVA tenderness. NEUROLOGICAL: Intact without focal deficits. PSYCHIATRIC: normal affect. MUSCULOSKELETAL: Normally developed with good muscle tone. TRIAGE NURSING DOCUMENTATION REVIEWED. Course Course 1635: The patient was evaluated in room A11B. A complete history and physical exam was performed. 1814: Upon reevaluation, the patient appeared to have improvement of her symptoms. I discussed findings with her. The patient verbalized agreement of the treatment plan. The patient was discharged home. Administered Medications Discontinued Medications Albuterol (Duoneb) 3 ml INH NOW STA Stop: 04/05/19 16:40 Last Admin: 04/05/19 16:51 Dose: 3 ml Documented by: [id number] Ceftriaxone Sodium (Rocephin) 1,000 mg in 50 mls @ 100 mls/hr IV NOW STA Stop: 04/05/19 17:12 Last Infusion: 04/05/19 18:20 Dose: 0 mls/hr Documented by: [id number] Admin: 04/05/19 17:50 Dose: 100 mls/hr Documented by: [id number] Medical Decision Making Differential Diagnosis Differential Diagnosis: The differential was considered includes acute myocardial infarction, acute coronary syndrome, myocarditis, pericarditis, pericardial effusions /tamponad, esophageal perforation, pulmonary embolism, pneumonia, pneumothorax, cardiomyopathy, congestive heart, anemia , COPD/asthma exacerbation. Medical Records Attestation: I reviewed the patient's medical records. Home Medications Current Medication List: was personally reviewed by me Laboratory Data Attestation: I reviewed the patient's lab results. Result diagrams: 04/05/19 17:28 04/05/19 17:28 Lab Results 04/05/19 04/05/19 04/05/19 Range/Units 16:44 17:28 17:28 WBC 6.09 (4.8-10.8) K/uL RBC 2.95 L (4.2-5.4) M/uL Hgb 11.7 L (12.0-16.0) g/dL Hct 35.3 L (37-47) % MCV 119.7 H (80-100) fL MCH 39.7 H (25-34) pg MCHC 33.1 (32-36) g/dL RDW Std Deviation 64.8 H (36.4-46.3) fL RDW Coeff of Fior 15.0 H (11.5-14.5) % Plt Count 170 (130-400) K/uL MPV 10.1 (7.4-10.4) fL Immature Gran % (Auto) 0.3 % Neut % (Auto) 77.7 % Lymph % (Auto) 11.5 % [place] % (Auto) 8.7 % Eos % (Auto) 1.1 % Baso % (Auto) 0.7 % Immature Gran # (Auto) 0.02 (0.00-0.02) K/uL Neut # (Auto) 4.73 (1.4-6.5) K/uL Lymph # (Auto) 0.70 L (1.2-3.4) K/uL [place] # (Auto) 0.53 (0.11-0.59) K/uL Eos # (Auto) 0.07 (0-0.5) K/uL Baso # (Auto) 0.04 (0-0.2) K/uL Macrocytosis Present PT 10.3 (9.0-12.0) Seconds INR 1.0 (0.9-1.1) APTT 26.5 (21.0-31.0) Seconds PTT Ratio 1.0 Sodium (136-145) mmol/L Potassium (3.5-5.1) mmol/L Chloride (98-107) mmol/L Carbon Dioxide (21-32) mmol/L Anion Gap (3-11) BUN (7-18) mg/dl Creatinine (0.6-1.2) mg/dl Est Cr Clr Drug Dosing ml/min Est GFR ( Amer) Est GFR (Non-Af Amer) BUN/Creatinine Ratio (10-20) Glucose (70-99) mg/dl Calcium (8.5-10.1) mg/dl Total Bilirubin (0.2-1) mg/dl AST (15-37) U/L ALT (12-78) U/L Alkaline Phosphatase (45-117) U/L Troponin I (0-0.045) ng/ml Total Protein (6.4-8.2) gm/dl Albumin (3.4-5.0) gm/dl Globulin (2.5-4.0) gm/dl Albumin/Globulin Ratio (0.9-2) Influenza Type A (PCR) Neg for Influ A (Neg) Influenza Type B (PCR) Neg for Influ B (Neg) 04/05/19 Range/Units 17:28 WBC (4.8-10.8) K/uL RBC (4.2-5.4) M/uL Hgb (12.0-16.0) g/dL Hct (37-47) % MCV (80-100) fL MCH (25-34) pg MCHC (32-36) g/dL RDW Std Deviation (36.4-46.3) fL RDW Coeff of Fior (11.5-14.5) % Plt Count (130-400) K/uL MPV (7.4-10.4) fL Immature Gran % (Auto) % Neut % (Auto) % Lymph % (Auto) % [place] % (Auto) % Eos % (Auto) % Baso % (Auto) % Immature Gran # (Auto) (0.00-0.02) K/uL Neut # (Auto) (1.4-6.5) K/uL Lymph # (Auto) (1.2-3.4) K/uL [place] # (Auto) (0.11-0.59) K/uL Eos # (Auto) (0-0.5) K/uL Baso # (Auto) (0-0.2) K/uL Macrocytosis PT (9.0-12.0) Seconds INR (0.9-1.1) APTT (21.0-31.0) Seconds PTT Ratio Sodium 137 (136-145) mmol/L Potassium 3.9 (3.5-5.1) mmol/L Chloride 98 (98-107) mmol/L Carbon Dioxide 33 H (21-32) mmol/L Anion Gap 6.0 (3-11) BUN 14 (7-18) mg/dl Creatinine 4.99 H* (0.6-1.2) mg/dl Est Cr Clr Drug Dosing 12.0 ml/min Est GFR ( Amer) 9.3 Est GFR (Non-Af Amer) 8.1 BUN/Creatinine Ratio 2.8 L (10-20) Glucose 117 H (70-99) mg/dl Calcium 10.0 (8.5-10.1) mg/dl Total Bilirubin 0.5 (0.2-1) mg/dl AST 12 L (15-37) U/L ALT 18 (12-78) U/L Alkaline Phosphatase 102 (45-117) U/L Troponin I < 0.015 (0-0.045) ng/ml Total Protein 7.1 (6.4-8.2) gm/dl Albumin 3.4 (3.4-5.0) gm/dl Globulin 3.7 (2.5-4.0) gm/dl Albumin/Globulin Ratio 0.9 (0.9-2) Influenza Type A (PCR) (Neg) Influenza Type B (PCR) (Neg) Imaging Data Radiologist's Impression: Radiology results as stated below per my review and the radiologist's interpretation: XR chest 1V portable CLINICAL HISTORY: Dyspnea COMPARISON STUDY: Chest radiograph January 18, 2019. Chest CT February 08, 2017. FINDINGS: Lung volumes are normal. Lungs are clear. There is no pneumothorax or pleural effusion. Cardiac size is normal. Mediastinal contours are normal. There is no evidence for pulmonary edema. Incidental note is made of probable calcific tendinitis of the right rotator cuff. IMPRESSION: No acute cardiopulmonary findings. ACT 112: Negative or not required by law. Electronically signed by: Vicente Tapia M.D. 04/05/2019 5:15 PM ECG Data Attestation: I personally reviewed and interpreted this ECG as follows: Indication: + SOB/dyspnea Rate (beats per minute): 86 Rhythm: + sinus with SA ECG Intervals/blocks: + Normal QT-c ECG [place]: + Normal ECG ST segments: no ST elevation ECG Findings: no [place] Blood Pressure Blood Pressure Findings: Elevated blood pressure Blood Pressure Disposition: Referred to patients primary care provider MDM Narrative This is a 74-year-old female who presents to the ED with a chief complaint of a hard time breathing for the past 3 days. She reports a cough that is minimally productive occasionally with a light yellow sputum. She reports that she has a history of COPD and uses 3 L of oxygen at home. She has not been on recent antibiotics. She states that walking seems to make her breathing a little worse. She denies having any sick contacts. Her symptoms are mild to moderate. Her temperature today is 37.8. Blood pressure is elevated. Physical exam rev eals diminished breath sounds in the bilateral bases. Twelve-lead EKG shows a normal sinus rhythm at a rate of [address] elevation or ectopy. The CBC is unremarkable. Chemistry panel was unremarkable. Chest x-ray did not show acute process. Flu swab was negative. The patient was given a DuoNeb treatment as well as IV Rocephin here. She is felt to be stable for discharge. She will be discharged on doxycycline. Impression & Plan Acute bronchitis Discharge Plan Visit Data Chief Complaint: Shortness of Breath/Dyspnea Stated Complaint: SOB W/EXERTION ED Provider: Himanshu Walsh Discharge Problem: Acute bronchitis Patient Disposition: Home - Self-Care Condition: Good Discharge Instructions Activity Restrictions/Additional Instructions: Doxycycline as prescribed. Use your inhalers and nebulizers at home. Use albuterol nebulizer as prescribed. Return for any concerns or worsening. Follow-up with your doctor for further care and evaluation in 1-2 days if symptoms persist. Return to the emergency department for worsening or new symptoms or any concerns. You have been examined and treated today on an emergency basis only. This is not a substitute for, or an effort to provide, complete comprehensive medical care. It is impossible to recognize and treat all injuries or illnesses in a single em ergency department visit. It is therefore important that you follow up closely with your doctor. Call as soon as possible for an appointment. Forms Stand Alone Forms: My [facility], Important Visit Information Prescriptions Prescriptions: New doxycycline monohydrate 100 mg capsule 100 mg PO BID Qty: 20 RF: 0 albuterol sulfate 2.5 mg /3 mL (0.083 %) solution for nebulization 1.25 mg INH TID 10 Days Qty: 45 RF: 0 No Action fluticasone propion-salmeterol [Advair Diskus] 250-50 mcg/dose blister with device 2 inh inhalation BID RF: 0 ipratropium-albuterol 0.5 mg-3 mg(2.5 mg base)/3 mL Solution For Nebulization 3 ml INHALATION QID PRN (Reason: Shortness Of Breath) RF: 0 diltiazem HCl 120 mg capsule,extended release 24hr 120 mg PO QAM RF: 0 Arabella-Tika 0.8 mg tablet 0.8 mg PO QDL RF: 0 hydralazine 50 mg tablet 50 mg PO BID RF: 0 ergocalciferol (vitamin D2) 50,000 unit capsule 50,000 unit PO MONTHLY RF: 0 losartan 100 mg tablet 100 mg PO HS RF: 0 insulin aspart U-100 [Novolog Flexpen U-100 Insulin] 100 unit/mL (3 mL) insulin pen 0 unit subcut UD RF: 0 Basaglar KwikPen U-100 Insulin 100 unit/mL (3 mL) insulin pen 26 unit subcut QAM RF: 0 prednisolone acetate 1 % Drops,Suspension 1 drp OPL QAM RF: 0 fluticasone propionate 50 mcg/actuation [place],Suspension 2 spray INTRANASAL HS RF: 0 sevelamer carbonate 800 mg tablet 800 mg PO UD RF: 0 Incruse Ellipta 62.5 mcg/actuation Blister With Device 1 inh INHALATION QAM RF: 0 doxycycline hyclate 100 mg Capsule 100 mg PO BID Qty: 6 RF: 0 benzonatate [Tessalon Perles] 100 mg Capsule 100 mg PO TID PRN (Reason: cough) Qty: 15 RF: 0 valacyclovir 1 gram tablet 500 mg PO QAM Qty: 0 RF: 0 Referrals Referrals: Noam Armando MD [Primary Care Provider] - Discharge Problem: Acute bronchitis Qualifiers: Bronchitis organism: unspecified organism Qualified Code(s): J20.9 - Acute bronchitis, unspecified The scribe's documentation has been prepared under my direction and personally reviewed by me in its entirety. I confirm that the note above accurately reflects all work, treatment, procedures, and medical decision making performed by me.
--- NOTE | 2019-04-05 17:16 | XRay Report ---
XR chest 1V portable CLINICAL HISTORY: Dyspnea COMPARISON STUDY: Chest radiograph January 18, 2019. Chest CT February 08, 2017. FINDINGS: Lung volumes are normal. Lungs are clear. There is no pneumothorax or pleural effusion. Car diac size is normal. Mediastinal contours are normal. There is no evidence for pulmonary edema. Incid ental note is made of probable calcific tendinitis of the right rotator cuff. IMPRESSION: No acute cardiopulmonary findings. ACT 112: Negative or not required by law. Electronically signed by: Vicente Tapia M.D. 04/05/2019 5:15 PM
[2019-04-05 17:36] LABS: Influenza A virus by PCR Neg for Influ A (Neg); Influenza B virus by PCR Neg for Influ B (Neg)
[2019-04-05 17:41] LABS: Basophils # (auto) 0.04 K/uL (0-0.2); Basophils % (auto) 0.7 %; Eosinophils # (auto) 0.07 K/uL (0-0.5); Eosinophils % (auto) 1.1 %; Hematocrit (blood only) 35.3 % (37-47); Hemoglobin 11.7 g/dL (12.0-16.0); Immature Granulocytes # (auto) 0.02 K/uL (0.00-0.02); Immature Granulocytes % (auto) 0.3 %; Lymphocytes % (auto) 11.5 %; Mean Corpuscular Hemoglobin 39.7 pg (25-34); Mean Corpuscular Hgb Conc 33.1 g/dL (32-36); Mean Corpuscular Volume 119.7 fL (80-100); Mean Platelet Volume 10.1 fL (7.4-10.4); Monocytes # (auto) 0.53 K/uL (0.11-0.59); Monocytes % (auto) 8.7 %; Neutrophils # (auto) 4.73 K/uL (1.4-6.5); Neutrophils % (auto) 77.7 %; Platelet Count 170 K/uL (130-400); RDW Standard Deviation 64.8 fL (36.4-46.3); Red Blood Count 2.95 M/uL (4.2-5.4); White Blood Count 6.09 K/uL (4.8-10.8)
[2019-04-05 17:52] LABS: Partial Thromboplastin Time 26.5 Seconds (21.0-31.0); Prothrombin Time 10.3 Seconds (9.0-12.0)
[2019-04-05 18:06] LABS: Macrocytosis Present
[2019-04-05 18:12] LABS: Alanine Aminotransferase 18 U/L (12-78); Albumin Globulin Ratio 0.9 (0.9-2); Albumin Level 3.4 gm/dl (3.4-5.0); Alkaline Phosphatase 102 U/L (45-117); Aspartate Aminotransferase 12 U/L (15-37); BUN Creatinine Ratio 2.8 (10-20); Bilirubin,Total 0.5 mg/dl (0.2-1); Blood Urea Nitrogen 14 mg/dl (7-18); Carbon Dioxide 33 mmol/L (21-32); Chloride 98 mmol/L (98-107); Est GFR (African American) 9.3; Est GFR (Non-African American) 8.1; Globulin 3.7 gm/dl (2.5-4.0); Glucose 117 mg/dl (70-99); Potassium 3.9 mmol/L (3.5-5.1); Sodium 137 mmol/L (136-145); Total Protein 7.1 gm/dl (6.4-8.2); Troponin I < 0.015 ng/ml (0-0.045)
[2019-04-05] MEDS ORDERED: DOXYCYCLINE HYCLATE 100 MG CAP PO STA (18:12)
--- NOTE | 2019-04-05 19:42 | History & Physical Report ---
Date of Service April 05, 2019 Assessment & Plan (1) COPD exacerbation: (2) Chronic respiratory failure with hypoxia: Pt is 74 y/o F with PMH ESRD on HD on tue schedule, insulin dependent DM II, chronic anemia, HTN, diastolic dysfunction, PAF, COPD, chronic respiratory failure on 3L O2 presented to ER with c/o non-productivecough and SOB x 3 days In ER: T: 37.8C, P: 88, R: 18, BP: 156/61, 96% on chronic 3L via NC. No leukocytosis, CO2: 33, negative influenza swab. CXR: no acute infiltrate -In ER given Rocephin, doxycyline, neb treatment -Doxycycline -Solumedrol 40mg Q8H -Continue chronic 3L oxygen via NC -Duonebs -Continue Advair. Will hold incruse ellipta since on duonebs -CBC, BMP in am (3) HTN (hypertension): Stable -Continue losartan, hydralazine, diltiazem (4) ESRD (end stage renal disease) on dialysis: On Tue schedule Had HD today -Continue renal vitamin, sevelamer -Nephrology consult for HD (5) DM type 2 (diabetes mellitus, type 2): A1c: 4.9 in 12/2018 -Hold home insulin -Basal bolus insulin per protocol (6) A-fib: Paroxysmal atrial fibrillation Not on anticoagulation secondary to H/O GI bleed -Current sinus rhythm -Continue diltiazem (7) Anemia of chronic disease: Hgb: 11.7. Baseline Hgb in 10's -Monitor H&H DVT Prophylaxis -Heparin SQ Full Code as per discussion with pt Follows with Dr Armando for routine care Pt was seen and care coordinated with Dr Thakur. See addendum History of Present Illness Chief Complaint: SOB Primary Care Provider: Noam Armando MD Pt is 74 y/o F with PMH ESRD on HD on tue schedule, insulin dependent DM II, chronic anemia, HTN, diastolic dysfunction, PAF, COPD, chronic respiratory failure on 3L O2 presented to ER with c/o cough and SOB x 3 days. Reports nonproductive cough. She reports she has been using her albuterol inhaler twice a day without significant improvement. Patient also also complains of fatigue and generalized weakness past 3 days. Reports uses walker to ambulate at baseline. States has been having increased difficulty walking secondary to feeling "wiped out". Denies falls. Reports had influenza vaccine this season. Denies ill contacts. Had dialysis today. Denies fever/chills, diaphoresis, N/V/D/C, BETANCOURT, dizziness, syncope, vision changes, neck pain, CP, orthopnea, palpitations, hemoptysis, sore throat, choking, otalgia, rhinorrhea, abdominal pain, paresthesias, extremity edema, rashes, urinary symptoms. Allergies Allergy/AdvReac Type Severity Reaction Status Date / Time No Known Allergies Allergy Verified 04/05/19 18:09 Home Medications Home Medications Medication Instructions Recorded Confirmed Type Basaglar KwikPen U-100 Insulin 26 unit SUBCUT QAM 09/26/18 04/05/19 History Arabella-Tika 1 tab PO DAILY 09/26/18 04/05/19 History diltiazem HCl 120 mg PO HS 09/26/18 04/05/19 History ergocalciferol (vitamin D2) 50,000 unit PO MONTHLY 09/26/18 04/05/19 History fluticasone propion-salmeterol 2 inh INHALATION BID 09/26/18 04/05/19 History [Advair Diskus] hydralazine 50 mg PO BID 09/26/18 04/05/19 History insulin aspart U-100 [Novolog 0 unit SUBCUT UD 09/26/18 04/05/19 History Flexpen U-100 Insulin] ipratropium-albuterol 3 ml INHALATION QID PRN 09/26/18 04/05/19 History losartan 100 mg PO DAILY 09/26/18 04/05/19 History Incruse Ellipta 1 inh INHALATION QAM 01/18/19 04/05/19 History fluticasone propionate 2 spray INTRANASAL HS 01/18/19 04/05/19 History sevelamer carbonate 800 mg PO UD 01/18/19 04/05/19 History benzonatate [Tessalon Perles] 100 mg PO TID PRN #15 cap 01/23/19 04/05/19 Rx valacyclovir 500 mg PO QAM #0 tab 01/23/19 04/05/19 Rx albuterol sulfate 1.25 mg INH TID 10 Days #45 ml 04/05/19 Rx albuterol sulfate 2 puff INHALATION Q4H PRN 04/05/19 04/05/19 History fluorometholone 1 drp OPL DAILY 04/05/19 04/05/19 History Past Med/Surg History Medical History A-fib (Chronic) "paroxysmal" Adrenal adenoma (Chronic) Anemia of chronic disease (Chronic) AV fistula (Chronic) Chronic respiratory failure with hypoxia (Chronic) COPD, moderate (Chronic) On 08/19/15 09:47 Mare Whyte wrote "2L O2 at home" Diastolic CHF (Chronic) DM type 2 (diabetes mellitus, type 2) (Chronic) Dyslipidemia (Chronic) ESRD (end stage renal disease) on dialysis (Chronic) GI bleed (Resolved) H/O cardiovascular stress test (Chronic) "05/2013 - negative for ischemia" Herpes simplex iridocyclitis (Chronic) History of Helicobacter pylori infection (Chronic) HTN (hypertension) (Chronic) Moderate mitral regurgitation (Chronic) "moderate to severe on 12/2015 echo" On 01/13/16 15:17 Blanca Chan wrote "echo 06/2015 - calcified mitral valve, moderate MR" Osteoarthritis (Chronic) Pancreatic cyst (Chronic) Psoriasis (Chronic) Renal cyst (Chronic) Tobacco use (Chronic) Surgical History H/O colonoscopy (Chronic) "2005, hyperplastic polyps repeat in 10 years " H/O nasal polypectomy (Chronic) History of cataract surgery (Chronic) S/P appendectomy (Chronic) "1971" S/P cholecystectomy (Chronic) "1971" S/P left oophorectomy (Chronic) "1981" S/P ASH (total abdominal hysterectomy) (Chronic) "For Fibroids " Family History Father Myocardial infarction, Onset Age: 64 Mother , 87 Alzheimer disease Social History Preferred Language: [place] Zealander Communication Ability: Effective 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 Operator 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 Beliefs That Will Affect Care: None marital status: / Current Living Situation: Alone current occupational status: retired Other Information That Helps Us Care for You: No Feels Safe at Home: Yes Safety Concerns: Feels Safe At This Time Smoking Status: Current every day smoker Tobacco Type: cigarettes ; Cigarettes Per Day: 3 ; Do You Dip or Chew Tobacco: No ; Second Hand Exposure: Yes ; Tobacco Cessation Education Requested by Patient: No (pt states "ill get there") Hx Alcohol Use: No Hx Substance Use: No Review of Systems Review of Systems: All systems reviewed & are unremarkable except as noted in HPI & below Physical Exam Physical Exam: General: no acute distress, chronic ill appearing female, WDWN Head: normocephalic, atraumatic Eyes: PERRL, EOM's intact, conjunctiva non-injected, anicteric ENT: normal inspection external ears, nose, mucous membranes moist Neck: supple, trachea midline Lungs: no respiratory distress, able to speak in sentences, +scattered wheezing throughout, no rhonchi/rales CV: RRR, no murmur, no pretibial edema Abd: normal BS, soft, non-tender Ext: no cyanosis, no calf tenderness Neuro: A&O x 3, no focal deficits noted, normal affect Skin: warm, dry Results & Data Vital Signs (Past 12 Hours) Vital Signs Temp Pulse Pulse Resp BP BP Pulse Ox 04/05/19 19:01 84 31 H 95 04/05/19 19:00 81 34 H 127/55 L 95 04/05/19 18:31 89 33 H 95 04/05/19 18:30 85 33 H 126/57 L 95 04/05/19 18:01 90 26 H 94 04/05/19 18:00 92 H 24 154/71 H 94 04/05/19 17:48 89 26 H 140/71 93 04/05/19 17:31 86 34 H 94 04/05/19 17:30 84 34 H 140/71 94 04/05/19 17:00 89 16 143/60 H 96 04/05/19 16:52 85 20 96 04/05/19 16:31 89 30 H 96 04/05/19 16:30 91 H 33 H 142/68 H 96 04/05/19 16:20 37.8 C H 88 18 156/61 H 96 04/05/19 16:19 86 28 H 95 04/05/19 16:14 90 28 H 156/61 H 95 Laboratory Results Short CBC 04/05/19 Range/Units 17:28 WBC 6.09 (4.8-10.8) K/uL Hgb 11.7 L (12.0-16.0) g/dL Hct 35.3 L (37-47) % Plt Count 170 (130-400) K/uL BMP 04/05/19 17:28 Sodium 137 Potassium 3.9 Chloride 98 Carbon Dioxide 33 H BUN 14 Creatinine 4.99 H* Glucose 117 H Calcium 10.0 Cardiac Enzymes 04/05/19 Range/Units 17:28 Troponin I < 0.015 (0-0.045) ng/ml Liver Function 04/05/19 Range/Units 17:28 Total Bilirubin 0.5 (0.2-1) mg/dl AST 12 L (15-37) U/L ALT 18 (12-78) U/L Alkaline Phosphatase 102 (45-117) U/L Albumin 3.4 (3.4-5.0) gm/dl Diagnostic Findings CXR: IMPRESSION: No acute cardiopulmonary findings. Code Status & VTE Plan VTE Prophylaxis Plan VTE Prophylaxis will be ordered: Yes Supervising Physician Co-Signing Physician Notes Care coordinated with Clau Bedolla PA-C. Agree with above note. Patient seen and examined. Please refer to her notes for full details. Vital signs reviewed. Physical exam: General exam: Alert and oriented. Not in acute distress. CVS: S1 and S2 heard, regular rate and rhythm, no murmurs. RS: Clear to auscultation, no wheezing or crackles. ABD: Soft, bowel sounds present, nontender, no distention. SENIOR SCHEDULER: Nonfocal. EXT: No edema, no erythema. Labs: Reviewed. Assessment and plan: Presented with sob and cough for few days. Weak and tired.No signs of infection copd ex doxycyline, nebs and steroids monitor for response ESRD on HD Other diagnosis and plan of care as per Clau Bedolla PA-C. Cameron pablo MD.
[2019-04-05] MEDS ORDERED: ONDANSETRON INJ 2 MG/ML 2 ML VIAL ONE (20:01)
[2019-04-05] MEDS ORDERED: ONDANSETRON INJ 2 MG/ML 2 ML VIAL IV STA (20:01)
--- NOTE | 2019-04-05 20:01 | History & Physical Report ---
Date of Service April 05, 2019 History of Present Illness Primary Care Provider: Noam Armando MD Allergies Allergy/AdvReac Type Severity Reaction Status Date / Time No Known Allergies Allergy Verified 04/05/19 18:09 Home Medications Home Medications Medication Instructions Recorded Confirmed Type Basaglar KwikPen U-100 Insulin 26 unit SUBCUT QAM 09/26/18 04/05/19 History Arabella-Tika 1 tab PO DAILY 09/26/18 04/05/19 History diltiazem HCl 120 mg PO HS 09/26/18 04/05/19 History ergocalciferol (vitamin D2) 50,000 unit PO MONTHLY 09/26/18 04/05/19 History fluticasone propion-salmeterol 2 inh INHALATION BID 09/26/18 04/05/19 History [Advair Diskus] hydralazine 50 mg PO BID 09/26/18 04/05/19 History insulin aspart U-100 [Novolog 0 unit SUBCUT UD 09/26/18 04/05/19 History Flexpen U-100 Insulin] ipratropium-albuterol 3 ml INHALATION QID PRN 09/26/18 04/05/19 History losartan 100 mg PO DAILY 09/26/18 04/05/19 History Incruse Ellipta 1 inh INHALATION QAM 01/18/19 04/05/19 History fluticasone propionate 2 spray INTRANASAL HS 01/18/19 04/05/19 History sevelamer carbonate 800 mg PO UD 01/18/19 04/05/19 History benzonatate [Tessalon Perles] 100 mg PO TID PRN #15 cap 01/23/19 04/05/19 Rx valacyclovir 500 mg PO QAM #0 tab 01/23/19 04/05/19 Rx albuterol sulfate 1.25 mg INH TID 10 Days #45 ml 04/05/19 Rx albuterol sulfate 2 puff INHALATION Q4H PRN 04/05/19 04/05/19 History fluorometholone 1 drp OPL DAILY 04/05/19 04/05/19 History Past Med/Surg History Medical History A-fib (Chronic) "paroxysmal" Adrenal adenoma (Chronic) Anemia of chronic disease (Chronic) AV fistula (Chronic) Chronic respiratory failure with hypoxia (Chronic) COPD, moderate (Chronic) On 08/19/15 09:47 Mare Pato wrote "2L O2 at home" Diastolic CHF (Chronic) DM type 2 (diabetes mellitus, type 2) (Chronic) Dyslipidemia (Chronic) ESRD (end stage renal disease) on dialysis (Chronic) GI bleed (Resolved) H/O cardiovascular stress test (Chronic) "05/2013 - negative for ischemia" Herpes simplex iridocyclitis (Chronic) History of Helicobacter pylori infection (Chronic) HTN (hypertension) (Chronic) Moderate mitral regurgitation (Chronic) "moderate to severe on 12/2015 echo" On 01/13/16 15:17 Blanca Chan wrote "echo 06/2015 - calcified mitral valve, moderate MR" Osteoarthritis (Chronic) Pancreatic cyst (Chronic) Psoriasis (Chronic) Renal cyst (Chronic) Tobacco use (Chronic) Surgical History H/O colonoscopy (Chronic) "2005, hyperplastic polyps repeat in 10 years " H/O nasal polypectomy (Chronic) History of cataract surgery (Chronic) S/P appendectomy (Chronic) "1971" S/P cholecystectomy (Chronic) "1971" S/P left oophorectomy (Chronic) "1981" S/P ASH (total abdominal hysterectomy) (Chronic) "For Fibroids " Family History Father Myocardial infarction, Onset Age: 64 Mother , 87 Alzheimer disease Social History Preferred Language: [place]orese Communication Ability: Effective 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 Beliefs That Will Affect Care: Caodaism marital status: / Current Living Situation: Alone current occupational status: retired Feels Safe at Home: Yes Smoking Status: Former smoker Tobacco Type: cigarettes ; Cigarettes Per Day: 1 cigarette every couple of days ; Second Hand Exposure: No ; Hx Alcohol Use: No Hx Substance Use: No Results & Data Vital Signs (Past 12 Hours) Vital Signs Temp Pulse Pulse Resp BP BP Pulse Ox 04/05/19 19:01 84 31 H 95 04/05/19 19:00 81 34 H 127/55 L 95 04/05/19 18:31 89 33 H 95 04/05/19 18:30 85 33 H 126/57 L 95 04/05/19 18:01 90 26 H 94 04/05/19 18:00 92 H 24 154/71 H 94 04/05/19 17:48 89 26 H 140/71 93 04/05/19 17:31 86 34 H 94 04/05/19 17:30 84 34 H 140/71 94 04/05/19 17:00 89 16 143/60 H 96 04/05/19 16:52 85 20 96 04/05/19 16:31 89 30 H 96 04/05/19 16:30 91 H 33 H 142/68 H 96 04/05/19 16:20 37.8 C H 88 18 156/61 H 96 04/05/19 16:19 86 28 H 95 04/05/19 16:14 90 28 H 156/61 H 95 Code Status & VTE Plan VTE Prophylaxis Plan VTE Prophylaxis will be ordered: Yes
[2019-04-05] MEDS ORDERED: ACETAMINOPHEN 325 MG TAB PO PRN (21:07)
[2019-04-05] MEDS ORDERED: GLUCOSE 10 TABS/TUBE PO PRN (21:07)
[2019-04-05] MEDS ORDERED: CARBOHYDRATES FOR HYPOGLYCEMIA PO PRN (21:07)
[2019-04-05] MEDS ORDERED: DEXTROSE 50% 50 ML SYRINGE IV PRN (21:07)
[2019-04-05] MEDS ORDERED: BENZONATATE 100 MG CAPSULE PO PRN (21:07)
[2019-04-05] MEDS ORDERED: GLUCAGON FOR INJ 1 MG VIAL SQ PRN (21:07)
[2019-04-05] MEDS ORDERED: GLUCOSE 40% GEL 15 GM TUBE PO PRN (21:07)
[2019-04-05 21:32] LABS: Hematocrit (blood only) 34.8 % (37-47); Hemoglobin 11.4 g/dL (12.0-16.0); Mean Corpuscular Hemoglobin 39.2 pg (25-34); Mean Corpuscular Hgb Conc 32.8 g/dL (32-36); Mean Corpuscular Volume 119.6 fL (80-100); Mean Platelet Volume 9.9 fL (7.4-10.4); Platelet Count 165 K/uL (130-400); RDW Coefficient of Variation 15.1 % (11.5-14.5); RDW Standard Deviation 65.1 fL (36.4-46.3); Red Blood Count 2.91 M/uL (4.2-5.4); White Blood Count 5.97 K/uL (4.8-10.8)
[2019-04-05] MEDS: methylPREDNISolone 40 MG in SYRINGE 0 ML IV SCH (21:56)
[2019-04-05] MEDS: SEVELAMER HCL 800 MG TABLET PO SCH (21:57)
[2019-04-05] MEDS: dilTIAZem HCL 120 MG CAPCR PO SCH (21:57)
[2019-04-05] MEDS: HydrALAZINE TAB 50 MG TAB PO SCH (21:57)
[2019-04-05] MEDS: FLUTICASONE PROPIONATE NA SPR 16 GM BTL NAE SCH (21:58)
[2019-04-05] MEDS: HEPARIN SOD 5,000 UNIT/0.5 ML VIAL SQ SCH (21:59)
[2019-04-05] MEDS: INSULIN ASPART 100 UNITS/ML 3 ML PEN SC SCH (22:08)
[2019-04-05] MEDS: FLUTICASONE/SALMETEROL 250/50 (ADVAIR) 14 PUFF/1 INHALER INH SCH (22:10)
[2019-04-05] MEDS: INSULIN GLARGINE SOLOSTAR 100 UNITS/ML 3 ML PEN SC SCH (22:10)
[2019-04-05] MEDS: FLUOROMETHOLONE~ORDER AWAITING ACTION SCH (23:03)
[2019-04-06] MEDS: methylPREDNISolone 40 MG in SYRINGE 0 ML IV SCH (05:21)
[2019-04-06] MEDS: ALBUT/IPRATROP 3MG/0.5MG NEB 3 ML VIAL NEB SCH ×4 (07:17→19:33)
[2019-04-06 07:35] LABS: Hematocrit (blood only) 34.9 % (37-47); Hemoglobin 11.3 g/dL (12.0-16.0); Mean Corpuscular Hemoglobin 38.8 pg (25-34); Mean Corpuscular Hgb Conc 32.4 g/dL (32-36); Mean Corpuscular Volume 119.9 fL (80-100); Mean Platelet Volume 10.2 fL (7.4-10.4); Platelet Count 148 K/uL (130-400); RDW Coefficient of Variation 14.7 % (11.5-14.5); RDW Standard Deviation 64.2 fL (36.4-46.3); Red Blood Count 2.91 M/uL (4.2-5.4); White Blood Count 4.62 K/uL (4.8-10.8)
[2019-04-06] MEDS: FLUOROMETHOLONE~ORDER AWAITING ACTION SCH ×3 (07:55→23:18)
[2019-04-06] MEDS: DOXYCYCLINE HYCLATE 100 MG CAP PO SCH ×2 (07:56→20:32)
[2019-04-06] MEDS: FLUTICASONE/SALMETEROL 250/50 (ADVAIR) 14 PUFF/1 INHALER INH SCH ×2 (07:56→20:30)
[2019-04-06] MEDS: VALACYCLOVIR HCL 500 MG TABLET PO SCH (07:56)
[2019-04-06] MEDS: LOSARTAN POTASSIUM 50 MG TAB PO SCH (07:57)
[2019-04-06] MEDS: HydrALAZINE TAB 50 MG TAB PO SCH ×2 (07:57→20:31)
[2019-04-06] MEDS: SEVELAMER HCL 800 MG TABLET PO SCH ×3 (07:57→17:22)
[2019-04-06] MEDS: NEPHROCAPS PO SCH (07:58)
[2019-04-06] MEDS: HEPARIN SOD 5,000 UNIT/0.5 ML VIAL SQ SCH (07:59)
[2019-04-06] MEDS: INSULIN GLARGINE SOLOSTAR 100 UNITS/ML 3 ML PEN SC SCH ×2 (07:59→20:34)
[2019-04-06] MEDS: INSULIN ASPART 100 UNITS/ML 3 ML PEN SC SCH ×4 (08:00→20:33)
[2019-04-06] MEDS ORDERED: SEVELAMER HCL 800 MG TABLET PO PRN (08:00)
[2019-04-06 08:12] LABS: BUN Creatinine Ratio 3.4 (10-20); Calcium 9.4 mg/dl (8.5-10.1); Creatinine Clr Calc Pharmacy 7.9 ml/min; Est GFR (African American) 6.3; Est GFR (Non-African American) 5.5; Magnesium 2.2 mg/dl (1.8-2.4); Phosphorus 5.1 mg/dl (2.5-4.9)
[2019-04-06 08:32] LABS: Potassium 4.8 mmol/L (3.5-5.1)
--- NOTE | 2019-04-06 12:28 | Electrocardiogram Report ---
Test Reason : Blood Pressure : / mmHG Vent. Rate : 086 BPM Atrial Rate : 086 BPM P-R Int : 168 ms QRS Dur : 094 ms QT Int : 380 ms P-R-T Axes : 000 062 060 degrees QTc Int : 454 ms Sinus rhythm with marked sinus arrhythmia Otherwise normal ECG When compared with ECG of 18-JAN-2019 11:03, Premature atrial complexes are no longer Present IN interval has decreased Confirmed by Hai Penny ([id number]) on 04/06/2019 12:28:23 PM Referred By: REFERRED SELF Confirmed By:Hai Penny
--- NOTE | 2019-04-06 13:37 | Hospitalist Progress Note ---
Date of Service April 06, 2019 Assessment & Plan (1) COPD exacerbation: (2) Chronic respiratory failure with hypoxia: Pt is 74 y/o F with PMH ESRD on HD on tue schedule, insulin dependent DM II, chronic anemia, HTN, diastolic dysfunction, PAF, COPD, chronic respiratory failure on 3L O2 presented to ER with c/o non-productivecough and SOB x 3 days In ER: T: 37.8C, P: 88, R: 18, BP: 156/61, 96% on chronic 3L via NC. No leukocytosis, CO2: 33, negative influenza swab. CXR: no acute infiltrate -In ER given Rocephin, doxycycline, neb treatment -patient was then continued on doxycycline and solumedrol 40 mg IV q8 hours in case of COPD exacerbation or bronchitis -04/06/2019: will continue doxycycline. stop solumedrol and transition to oral prednisone by 04/07/2019 -Continue Advair. Will hold incruse ellipta since on duonebs (3) HTN (hypertension): -Continue losartan, hydralazine, diltiazem (4) ESRD (end stage renal disease) on dialysis: On Tue schedule Had dialysis on 04/05/2019 -Continue renal vitamin, sevelamer -Nephrology consult for Hemodialysis on 04/07/2019 (5) DM type 2 (diabetes mellitus, type 2): A1c: 4.9 in 12/2018 -Hold home insulin -Basal bolus insulin per protocol (6) A-fib: Paroxysmal atrial fibrillation Not on anticoagulation secondary to H/O GI bleed -Current sinus rhythm -Continue diltiazem (7) Anemia of chronic disease: -monitor blood counts DVT Prophylaxis -SCDs, ambulation Full Code as per discussion with pt Follows with Dr Armando for routine care Subjective Patient was able to walk with walker with therapist today. Patient on nasal cannula. Plans for dialysis tomorrow on 04/07/2019. Patient has cough. no breathing difficulties currently. no chest pain. no palpitations. no nausue. no vomiting Review of Systems Review of Systems: All systems reviewed & are unremarkable except as noted in HPI & below Physical Exam Constitutional: comfortable Eyes: PERRL, conjunctivae normal, anicteric sclerae EOM intact bilaterally ENMT: external ear and nose normal, oropharynx normal Neck: normal visual inspection Respiratory: normal respiratory effort Cardiovascular: Rate/Rhythm: regular rate and regular rhythm Gastrointestinal (Abdomen): normal bowel sounds, soft, nontender, no hepatosplenomegaly Musculoskeletal: Head/Neck/Chest: normocephalic and head atraumatic Neurologic: PERRL, EOMI, accommodation nl, no face palsy, no dysarthria CN's II-XI intact bilaterally Psychiatric: A+Ox3, euthymic affect Results & Data Vital Signs (Past 12 Hours) Vital Signs Temp Pulse Resp BP Pulse Ox 04/06/19 11:27 84 20 96 04/06/19 11:19 36.8 C 83 18 133/52 L 96 04/06/19 07:37 37.1 C 76 18 111/66 93 04/06/19 07:20 76 18 93 04/06/19 03:47 36.9 C 66 18 123/64 91
[2019-04-06] MEDS ORDERED: Nursing to Pharmacy Communication PRN (17:41)
--- NOTE | 2019-04-06 17:41 | Nephrology Consultation ---
Date of Consultation April 06, 2019 Assessment & Plan (1) Chronic kidney disease with end stage renal failure on dialysis: no urgent indication for HD today; will maintain TRSat schedule. volume status acceptable as are blood pressures, chemistries. -HD sat via aVF -anemia well controlled; on indication for ARLETTE Present on Admission?: Yes (2) COPD exacerbation: improving clinically; per primary service Present on Admission?: Yes History of Present Illness Reason for Consultation: ESRD on HD Requesting Physician: Dr Thakur Attending Physician: Bubba Sarmiento MD History of Present Illness 74 y/o F whom I'm asked to see for ESRD care after she was admitted last evening for failure to thrive, generalized weakness, near fall at home. PMH includes COPD, active tobacco abuse, DM2, pAF w/o AC d/t hx GI bleeding. She was admitted most recently here in December for a COPD exacerbation. She had a full HD tx yesterday; she had a thick nonproductive cough at that tx and lots of wheezes/rhonchi even at the end of tx w/ marked fatigue, and some generalized weakness. I advised her to see her PCP today; however pt has [facility] who evaluated her yesterday after HD w/ concern for generalized weakness, lethargy, abnormal lung exam. CXR on arrival here is clear though she did have some wheezing and mild resp distress on presentation; improved with breathing treatments. Feeling better this am. Allergies Allergy/AdvReac Type Severity Reaction Status Date / Time No Known Allergies Allergy Verified 04/05/19 18:09 Home Medications Home Medications Medication Instructions Recorded Confirmed Type Basaglar KwikPen U-100 Insulin 26 unit SUBCUT QAM 09/26/18 04/05/19 History Arabella-Tika 1 tab PO DAILY 09/26/18 04/05/19 History diltiazem HCl 120 mg PO HS 09/26/18 04/05/19 History ergocalciferol (vitamin D2) 50,000 unit PO MONTHLY 09/26/18 04/05/19 History fluticasone propion-salmeterol 2 inh INHALATION BID 09/26/18 04/05/19 History [Advair Diskus] hydralazine 50 mg PO BID 09/26/18 04/05/19 History insulin aspart U-100 [Novolog 0 unit SUBCUT UD 09/26/18 04/05/19 History Flexpen U-100 Insulin] ipratropium-albuterol 3 ml INHALATION QID PRN 09/26/18 04/05/19 History losartan 100 mg PO DAILY 09/26/18 04/05/19 History Incruse Ellipta 1 inh INHALATION QAM 01/18/19 04/05/19 History fluticasone propionate 2 spray INTRANASAL HS 01/18/19 04/05/19 History sevelamer carbonate 800 mg PO UD 01/18/19 04/05/19 History benzonatate [Tessalon Perles] 100 mg PO TID PRN #15 cap 01/23/19 04/05/19 Rx valacyclovir 500 mg PO QAM #0 tab 01/23/19 04/05/19 Rx albuterol sulfate 1.25 mg INH TID 10 Days #45 ml 04/05/19 Rx albuterol sulfate 2 puff INHALATION Q4H PRN 04/05/19 04/05/19 History fluorometholone 1 drp OPL DAILY 04/05/19 04/05/19 History Patient History Medical History A-fib (Chronic) "paroxysmal" Adrenal adenoma (Chronic) Anemia of chronic disease (Chronic) AV fistula (Chronic) Chronic respiratory failure with hypoxia (Chronic) COPD, moderate (Chronic) On 08/19/15 09:47 Mare Whyte wrote "2L O2 at home" Diastolic CHF (Chronic) DM type 2 (diabetes mellitus, type 2) (Chronic) Dyslipidemia (Chronic) ESRD (end stage renal disease) on dialysis (Chronic) GI bleed (Resolved) H/O cardiovascular stress test (Chronic) "05/2013 - negative for ischemia" Herpes simplex iridocyclitis (Chronic) History of Helicobacter pylori infection (Chronic) HTN (hypertension) (Chronic) Moderate mitral regurgitation (Chronic) "moderate to severe on 12/2015 echo" On 01/13/16 15:17 Blanca Chan wrote "echo 06/2015 - calcified mitral valve, moderate MR" Osteoarthritis (Chronic) Pancreatic cyst (Chronic) Psoriasis (Chronic) Renal cyst (Chronic) Tobacco use (Chronic) Surgical History H/O colonoscopy (Chronic) "2005, hyperplastic polyps repeat in 10 years " H/O nasal polypectomy (Chronic) History of cataract surgery (Chronic) S/P appendectomy (Chronic) "1971" S/P cholecystectomy (Chronic) "1971" S/P left oophorectomy (Chronic) "1981" S/P ASH (total abdominal hysterectomy) (Chronic) "For Fibroids " Family History Father Myocardial infarction, Onset Age: 64 Mother , 87 Alzheimer disease Social History Preferred Language: Latvian Communication Ability: Effective 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 Beliefs That Will Affect Care: None marital status: / Current Living Situation: Alone current occupational status: retired Other Information That Helps Us Care for You: No Feels Safe at Home: Yes Safety Concerns: Feels Safe At This Time Smoking Status: Current every day smoker Tobacco Type: cigarettes ; Cigarettes Per Day: 3 ; Do You Dip or Chew Tobacco: No ; Second Hand Exposure: Yes ; Tobacco Cessation Education Requested by Patient: No (pt states "ill get there") Hx Alcohol Use: No Hx Substance Use: No Review of Systems Review of Systems: All systems reviewed & are unremarkable except as noted in HPI & below Physical Exam Constitutional: well developed and well nourished sitting in chair, on RA Eyes: EOM intact bilaterally ENMT: Ears: no external ear abnormality Nose: no external nose abnormality Mouth: + dry oral mucous membranes Neck: no nuchal rigidity Respiratory: normal respiratory effort Auscultation: lungs clear to auscul tation bilaterally and + diminished lung sounds Cardiovascular: Rate/Rhythm: regular rate and regular rhythm Extremities: + edema (trace BLE at most) and + AV fistula (+ t/b) Gastrointestinal (Abdomen): Inspection/Auscultation: normal bowel sounds Percussion/Palpation: abdomen soft; abdomen nontender Musculoskeletal: Extremities: strength 5/5 throughout Skin: no rashes, warm and dry Neurologic: louie, fluent speech, no tremor Psychiatric: A+Ox3, euthymic affect Results & Data Vital Signs (Past 12 Hours) Vital Signs Temp Pulse Pulse Resp BP Pulse Ox 04/06/19 16:06 87 04/06/19 15:14 62 16 93 04/06/19 15:08 36.7 C 79 18 128/62 94 04/06/19 11:27 84 20 96 04/06/19 11:19 36.8 C 83 18 133/52 L 96 04/06/19 07:37 37.1 C 76 18 111/66 93 04/06/19 07:20 76 18 93 Laboratory Results 04/06/19 07:02 04/06/19 07:02
[2019-04-06] MEDS ORDERED: COUGH DROP (SUGAR FREE) LOZ 24 LOZ/1 BOX BUCCAL PRN (17:46)
[2019-04-06] MEDS: dilTIAZem HCL 120 MG CAPCR PO SCH (20:32)
[2019-04-06] MEDS: FLUTICASONE PROPIONATE NA SPR 16 GM BTL NAE SCH (20:36)
[2019-04-06] MEDS ORDERED: TRAMADOL HCL 50 MG TABLET PO STA (23:46)
[2019-04-07] MEDS ORDERED: HYDROmorphone INJ 0.5 MG/0.5 ML SYR IV STA (00:52)
[2019-04-07 05:47] LABS: Basophils # (auto) 0.02 K/uL (0-0.2); Basophils % (auto) 0.3 %; Eosinophils # (auto) 0.02 K/uL (0-0.5); Eosinophils % (auto) 0.3 %; Hematocrit (blood only) 32.1 % (37-47); Hemoglobin 10.5 g/dL (12.0-16.0); Immature Granulocytes # (auto) 0.01 K/uL (0.00-0.02); Immature Granulocytes % (auto) 0.1 %; Lymphocytes # (auto) 0.78 K/uL (1.2-3.4); Lymphocytes % (auto) 10.4 %; Mean Corpuscular Hemoglobin 38.7 pg (25-34); Mean Corpuscular Hgb Conc 32.7 g/dL (32-36); Mean Corpuscular Volume 118.5 fL (80-100); Mean Platelet Volume 10.3 fL (7.4-10.4); Monocytes # (auto) 0.74 K/uL (0.11-0.59); Monocytes % (auto) 9.9 %; Neutrophils # (auto) 5.93 K/uL (1.4-6.5); Platelet Count 151 K/uL (130-400); RDW Standard Deviation 63.4 fL (36.4-46.3); Red Blood Count 2.71 M/uL (4.2-5.4)
[2019-04-07 06:25] LABS: Macrocytosis Present
[2019-04-07 06:45] LABS: BUN Creatinine Ratio 5.5 (10-20); Calcium 8.6 mg/dl (8.5-10.1); Est GFR (African American) 4.5; Est GFR (Non-African American) 3.9; Magnesium 2.4 mg/dl (1.8-2.4); Potassium 4.3 mmol/L (3.5-5.1)
[2019-04-07] MEDS ORDERED: HEPARIN SOD (PORCINE) 1000 UNIT/ML 10 ML VIAL IV ONE (07:00)
[2019-04-07] MEDS ORDERED: SODIUM CHLORIDE 0.9% 1000ML 1,000 ML IV PRN (07:00)
[2019-04-07] MEDS: ALBUT/IPRATROP 3MG/0.5MG NEB 3 ML VIAL NEB SCH ×3 (07:15→15:18)
[2019-04-07] MEDS: INSULIN GLARGINE SOLOSTAR 100 UNITS/ML 3 ML PEN SC SCH (08:42)
[2019-04-07] MEDS: INSULIN ASPART 100 UNITS/ML 3 ML PEN SC SCH ×3 (08:42→16:14)
[2019-04-07] MEDS: DOXYCYCLINE HYCLATE 100 MG CAP PO SCH (08:43)
[2019-04-07] MEDS: NEPHROCAPS PO SCH (08:43)
[2019-04-07] MEDS: FLUTICASONE/SALMETEROL 250/50 (ADVAIR) 14 PUFF/1 INHALER INH SCH (08:43)
[2019-04-07] MEDS: VALACYCLOVIR HCL 500 MG TABLET PO SCH (08:44)
[2019-04-07] MEDS: SEVELAMER HCL 800 MG TABLET PO SCH ×3 (08:44→15:55)
[2019-04-07] MEDS: FLUOROMETHOLONE~ORDER AWAITING ACTION SCH ×2 (08:49→15:08)
[2019-04-07] MEDS ORDERED: predniSONE 20 MG TAB PO SCH (09:00)
[2019-04-07] MEDS: HEPARIN SOD (PORCINE) 1000 UNIT/ML 10 ML VIAL IV SCH (12:10)
--- NOTE | 2019-04-07 12:41 | Hospitalist Progress Note ---
Date of Service April 07, 2019 Assessment & Plan (1) COPD exacerbation: (2) Chronic respiratory failure with hypoxia: Pt is 74 y/o F with PMH ESRD on HD on , tue schedule, insulin dependent DM II, chronic anemia, HTN, diastolic dysfunction, PAF, COPD, chronic respiratory failure on 3L O2 presented to ER with c/o non-productivecough and SOB x 3 days In ER: T: 37.8C, P: 88, R: 18, BP: 156/61, 96% on chronic 3L via NC. No leukocytosis, CO2: 33, negative influenza swab. CXR: no acute infiltrate -In ER given Rocephin, doxycycline, neb treatment -patient was then continued on doxycycline and solumedrol 40 mg IV q8 hours in case of COPD exacerbation or bronchitis -04/06/2019: will continue doxycycline. stop solumedrol and transition to oral prednisone by 04/07/2019 -Continue Advair while inpatient. hold incruse ellipta since on duonebs -04/07/2019: Patient seen and examined during dialysis. Patient on nasal cannula. Patient reports sore throat. Otherwise no other symptoms. she is breathing comfortably. (3) HTN (hypertension): -Continue losartan, hydralazine, diltiazem (4) ESRD (end stage renal disease) on dialysis: On Tue schedule Had dialysis on 04/05/2019 -Continue renal vitamin, sevelamer -inpatient dialysis on 04/07/2019 (5) DM type 2 (diabetes mellitus, type 2): A1c: 4.9 in 12/2018 -Hold home insulin -Basal bolus insulin per protocol (6) A-fib: Paroxysmal atrial fibrillation Not on anticoagulation secondary to H/O GI bleed -Current sinus rhythm -Continue diltiazem (7) Anemia of chronic disease: -monitor blood counts DVT Prophylaxis -SCDs, ambulation Full Code as per discussion with pt Follows with Dr Armando for routine care Subjective Patient seen and examined during dialysis. Patient on nasal cannula. Patient reports sore throat. Otherwise no other symptoms. she is breathing comfortably. she denies pain. Review of Systems Review of Systems: All systems reviewed & are unremarkable except as noted in HPI & below Physical Exam Constitutional: comfortable in dialysis session Eyes: PERRL, conjunctivae normal, anicteric sclerae EOM intact bilaterally ENMT: external ear and nose normal, oropharynx normal Neck: normal visual inspection Respiratory: normal respiratory effort Cardiovascular: Rate/Rhythm: regular rate and regular rhythm Gastrointestinal (Abdomen): normal bowel sounds, soft, nontender, no hepatosplenomegaly Musculoskeletal: Head/Neck/Chest: normocephalic and head atraumatic Neurologic: PERRL, EOMI, accommodation nl, no face palsy, no dysarthria CN's II-XI intact bilaterally Psychiatric: A+Ox3, euthymic affect Results & Data Vital Signs (Past 12 Hours) Vital Signs Temp Pulse Pulse Pulse Resp BP BP 04/07/19 12:00 71 120/52 L 04/07/19 11:40 69 112/55 L 04/07/19 11:20 71 122/55 L 04/07/19 11:03 35.9 C L 58 L 20 148/72 H 04/07/19 11:00 68 124/58 L 04/07/19 10:40 70 108/51 L 04/07/19 10:20 67 104/48 L 04/07/19 10:01 36.6 C 73 04/07/19 09:36 69 04/07/19 07:15 71 18 04/07/19 07:00 36.7 C 69 16 138/66 04/07/19 04:00 36.7 C 78 18 152/66 H Pulse Ox 04/07/19 12:00 04/07/19 11:40 04/07/19 11:20 04/07/19 11:03 100 04/07/19 11:00 04/07/19 10:40 04/07/19 10:20 04/07/19 10:01 04/07/19 09:36 04/07/19 07:15 96 04/07/19 07:00 97 04/07/19 04:00 94
[2019-04-07] MEDS: LOSARTAN POTASSIUM 50 MG TAB PO SCH (13:57)
[2019-04-07] MEDS: HydrALAZINE TAB 50 MG TAB PO SCH (13:57)
--- NOTE | 2019-04-07 14:39 | Nephrology Progress Note ---
Date of Service April 07, 2019 Assessment & Plan (1) Chronic kidney disease with end stage renal failure on dialysis: will maintain TRSat schedule. volume status acceptable as are blood pressures, chemistries. -Tolerated HD today via aVF -anemia well controlled; on indication for ARLETTE (2) COPD exacerbation: improving clinically; per primary service Subjective Feels better. Less SOB. She cramps easily. Patient was seen and examined while on dialysis Review of Systems Review of Systems: All systems reviewed & are unremarkable except as noted in HPI & below Physical Exam Physical Exam: General exam: Appears comfortable, no acute distress HEENT: Pupils are equal and reactive to light Neck: No JVD, neck is supple trachea is midline Respiratory system: Clear breath sounds bilaterally. Gastrointestinal: Abdomen is soft, non distended, non tender, bowel sounds are present CVS: Regular rate and rhythm. No murmurs, rubs or gallops Musculoskeletal: No joint or muscle tenderness Extremities: Non tender, no edema, peripheral pulses are present Neuro: Oriented, no tremors, no focal neurological deficits Skin: No rashes Results & Data Vital Signs (Past 12 Hours) Vital Signs Temp Pulse Pulse Pulse Resp BP BP 04/07/19 14:00 68 124/69 04/07/19 13:40 68 120/57 L 04/07/19 13:20 66 124/59 L 04/07/19 13:00 67 116/48 L 04/07/19 12:40 70 118/50 L 04/07/19 12:20 63 116/50 L 04/07/19 12:00 71 120/52 L 04/07/19 11:40 69 112/55 L 04/07/19 11:20 71 122/55 L 04/07/19 11:03 35.9 C L 58 L 20 148/72 H 04/07/19 11:00 68 124/58 L 04/07/19 10:40 70 108/51 L 04/07/19 10:20 67 104/48 L 04/07/19 10:01 36.6 C 73 04/07/19 09:36 69 04/07/19 07:15 71 18 04/07/19 07:00 36.7 C 69 16 138/66 04/07/19 04:00 36.7 C 78 18 152/66 H Pulse Ox 04/07/19 14:00 04/07/19 13:40 04/07/19 13:20 04/07/19 13:00 04/07/19 12:40 04/07/19 12:20 04/07/19 12:00 04/07/19 11:40 04/07/19 11:20 04/07/19 11:03 100 04/07/19 11:00 04/07/19 10:40 04/07/19 10:20 04/07/19 10:01 04/07/19 09:36 04/07/19 07:15 96 04/07/19 07:00 97 04/07/19 04:00 94 Laboratory Results Laboratory Results - last 24 hr 04/06/19 04/06/19 04/07/19 16:40 20:23 05:26 WBC 7.50 RBC 2.71 L Hgb 10.5 L Hct 32.1 L MCV 118.5 H MCH 38.7 H MCHC 32.7 RDW Std Deviation 63.4 H RDW Coeff of Fior 15.0 H Plt Count 151 MPV 10.3 Immature Gran % (Auto) 0.1 Neut % (Auto) 79.0 Lymph % (Auto) 10.4 [place] % (Auto) 9.9 Eos % (Auto) 0.3 Baso % (Auto) 0.3 Immature Gran # (Auto) 0.01 Neut # (Auto) 5.93 Lymph # (Auto) 0.78 L [place] # (Auto) 0.74 H Eos # (Auto) 0.02 Baso # (Auto) 0.02 Macrocytosis Present Sodium Potassium Chloride Carbon Dioxide Anion Gap BUN Creatinine Est Cr Clr Drug Dosing Est GFR ( Amer) Est GFR (Non-Af Amer) BUN/Creatinine Ratio Glucose POC Glucose 249 H 231 H Calcium Magnesium 04/07/19 04/07/19 05:26 07:40 WBC RBC Hgb Hct MCV MCH MCHC RDW Std Deviation RDW Coeff of Fior Plt Count MPV Immature Gran % (Auto) Neut % (Auto) Lymph % (Auto) [place] % (Auto) Eos % (Auto) Baso % (Auto) Immature Gran # (Auto) Neut # (Auto) Lymph # (Auto) [place] # (Auto) Eos # (Auto) Baso # (Auto) Macrocytosis Sodium 136 Potassium 4.3 Chloride 96 L Carbon Dioxide 28 Anion Gap 12.0 H BUN 52 H D Creatinine 9.12 H* D Est Cr Clr Drug Dosing 6.0 Est GFR ( Amer) 4.5 Est GFR (Non-Af Amer) 3.9 BUN/Creatinine Ratio 5.5 L Glucose 139 H POC Glucose 121 H Calcium 8.6 Magnesium 2.4
[2019-04-07] MEDS ORDERED: ALBUT/IPRATROP 3MG/0.5MG NEB 3 ML VIAL NEB PRN (15:16)
--- NOTE | 2019-04-07 16:27 | Discharge Summary ---
Date of Service April 07, 2019 Admission HPI Per Admitting Provider Pt is 74 y/o F with PMH ESRD on HD on , tue, insulin dependent DM II, chronic anemia, HTN, diastolic dysfunction, PAF, COPD, chronic respiratory failure on 3L O2 presented to ER with c/o cough and SOB x 3 days. Reports nonproductive cough. She reports she has been using her albuterol inhaler twice a day without significant improvement. Patient also also complains of fatigue and generalized weakness past 3 days. Reports uses walker to ambulate at baseline. States has been having increased difficulty walking secondary to feeling "wiped out". Denies falls. Reports had influenza vaccine this season. Denies ill contacts. Had dialysis today. Denies fever/chills, diaphoresis, N/V/D/C, BETANCOURT, dizziness, syncope, vision changes, neck pain, CP, orthopnea, palpitations, hemoptysis, sore throat, choking, otalgia, rhinorrhea, abdominal pain, paresthesias, extremity edema, rashes, urinary symptoms. Admission Exam Per Admitting Provider General: no acute distress, chronic ill appearing female, WDWN Head: normocephalic, atraumatic Eyes: PERRL, EOM's intact, conjunctiva non-injected, anicteric ENT: normal inspection external ears, nose, mucous membranes moist Neck: supple, trachea midline Lungs: no respiratory distress, able to speak in sentences, +scattered wheezing throughout, no rhonchi/rales CV: RRR, no murmur, no pretibial edema Abd: normal BS, soft, non-tender Ext: no cyanosis, no calf tenderness Neuro: A&O x 3, no focal deficits noted, normal affect Skin: warm, dry Principal Diagnosis COPD exacerbation, Chronic respiratory failure with hypoxia, ESRD (end stage renal disease) on dialysis, Type II Diabetes Mellitus with [facility] current use of insulin Discharge Exam Constitutional comfortable Eyes PERRL, conjunctivae normal, anicteric sclerae EOM intact bilaterally ENMT external ear and nose normal, oropharynx normal Neck normal visual inspection Respiratory normal respiratory effort Cardiovascular Rate/Rhythm: regular rate and regular rhythm Gastrointestinal (Abdomen) normal bowel sounds, soft, nontender, no hepatosplenomegaly Musculoskeletal Head/Neck/Chest: normocephalic and head atraumatic Neurologic PERRL, EOMI, accommodation nl, no face palsy, no dysarthria CN's II-XI intact bilaterally Psychiatric A+Ox3, euthymic affect Discharge Data Allergies Allergy/AdvReac Type Severity Reaction Status Date / Time No Known Allergies Allergy Verified 04/05/19 18:09 Consultations 04/05/19 19:07 ED Decision to Admit Stat 04/05/19 21:07 Consult Case Management - Discharge Planning Routine Consult Nephrology Routine Hospital Course (1) COPD exacerbation: (2) Chronic respiratory failure with hypoxia: Pt is 74 y/o F with PMH ESRD on HD on , tue, insulin dependent DM II, chronic anemia, HTN, diastolic dysfunction, PAF, COPD, chronic respiratory failure on 3L O2 presented to ER with c/o non-productivecough and SOB x 3 days In ER: T: 37.8C, P: 88, R: 18, BP: 156/61, 96% on chronic 3L via NC. No leukocytosis, CO2: 33, negative influenza swab. CXR: no acute infiltrate -In ER given Rocephin, doxycycline, neb treatment -patient was then continued on doxycycline and solumedrol 40 mg IV q8 hours in case of COPD exacerbation or bronchitis -04/06/2019: will continue doxycycline. stop solumedrol and transition to oral prednisone by 04/07/2019 -Continue Advair while inpatient. hold incruse ellipta since on duonebs -04/07/2019: Patient seen and examined during dialysis. Patient on nasal cannula. Patient reports sore throat. Otherwise no other symptoms. she is breathing comfortably. -04/07/2019: patient seen and examined after dialysis, breathing comfortably on nasal cannula, some dry cough, but no acute wheezing or crackles on exam Discharge to home under care of family member Patient should continue hemodialysis schedule as usual on Tuesday, , Tuesday schedule Primary Care Doctor appointment 04/09/2019 6:00 PM Provider Noam Armando MD Department Internal Medicine [facility] 04/27/2019 9:00 AM provider Noam Armando MD Department Internal Medicine [facility] Discharge medication of Doxycycline antibiotic of 100 mg twice a day for 7 days AND prednisone taper of 40 mg x 3 days and then 20 mg x 3 days, then stop, have been sent to [facility] pharmacy [address] [place] [address] (3) HTN (hypertension): -Continue losartan, hydralazine, diltiazem (4) ESRD (end stage renal disease) on dialysis: On Tue schedule Had dialysis on 04/05/2019 as outpatient -Continue renal vitamin, sevelamer -inpatient dialysis on 04/07/2019 completed (5) DM type 2 (diabetes mellitus, type 2): Type II Diabetes Mellitus with [facility] current use of insulin A1c: 4.9 in 12/2018 -continue home dose insulin on discharge (6) A-fib: Paroxysmal atrial fibrillation Not on anticoagulation secondary to H/O GI bleed -Current sinus rhythm -Continue diltiazem (7) Anemia of chronic disease: stable Total Time Total Time Spent Total Time Spent (In Minutes): 40 minutes Total Time Includes: Examination of the Patient, Discharge Planning, Medication Reconciliation and Communication With Other Providers Discharge Plan Discharge Items Patient Disposition: Home - Self-Care Reason For Visit: COPD EXACERBATION Discharge Diagnosis: COPD exacerbation, Chronic respiratory failure with hypoxia, ESRD (end stage renal disease) on dialysis, Type II Diabetes Mellitus with [facility] current use of insulin Condition on Discharge: Good Activity: Resume your previous activity Non-emergency contact: Primary Care Provider Call non-emergency contact if: you have any medication questions Follow-up/Referrals: Noam Armando MD [Primary Care Provider] - Diet: Carb Consistent or DM2 and Dialysis Renal Addtl Attending Provider Instructions: Discharge to home under care of family member Patient should continue hemodialysis schedule as usual on Tuesday, , Tuesday schedule Primary Care Doctor appointment 04/09/2019 6:00 PM Provider Noam Armando MD Department Internal Medicine [facility] 04/27/2019 9:00 AM provider Noam Armando MD Department Internal Medicine [facility] Discharge medication of Doxycycline antibiotic of 100 mg twice a day for 7 days AND prednisone taper of 40 mg x 3 days and then 20 mg x 3 days, then stop, have been sent to [facility] pharmacy [address] [place] [address] Pending Studies at Discharge: No Stand-Alone Forms: [employer], Smoking Cessation Medications and DC Order Prescriptions: New albuterol sulfate 2.5 mg /3 mL (0.083 %) solution for nebulization 1.25 mg INH TID 10 Days Qty: 45 RF: 0 doxycycline hyclate 100 mg Capsule 100 mg PO BID 7 Days Qty: 14 RF: 0 prednisone 20 mg Tablet 40 mg PO UD 6 Days Qty: 12 RF: 0 Continued fluticasone propion-salmeterol [Advair Diskus] 250-50 mcg/dose blister with device 2 inh inhalation BID RF: 0 ipratropium-albuterol 0.5 mg-3 mg(2.5 mg base)/3 mL Solution For Nebulization 3 ml INHALATION QID PRN (Reason: Shortness Of Breath) RF: 0 diltiazem HCl 120 mg capsule,extended release 24hr 120 mg PO HS RF: 0 Arabella-Tika 0.8 mg tablet 1 tab PO DAILY RF: 0 hydralazine 50 mg tablet 50 mg PO BID RF: 0 ergocalciferol (vitamin D2) 50,000 unit capsule 50,000 unit PO MONTHLY RF: 0 losartan 100 mg tablet 100 mg PO DAILY RF: 0 insulin aspart U-100 [Novolog Flexpen U-100 Insulin] 100 unit/mL (3 mL) insulin pen 0 unit subcut UD RF: 0 Basaglar KwikPen U-100 Insulin 100 unit/mL (3 mL) insulin pen 26 unit subcut QAM RF: 0 fluticasone propionate 50 mcg/actuation [place],Suspension 2 spray INTRANASAL HS RF: 0 sevelamer carbonate 800 mg tablet 800 mg PO UD RF: 0 Incruse Ellipta 62.5 mcg/actuation Blister With Device 1 inh INHALATION QAM RF: 0 benzonatate [Tessalon Perles] 100 mg Capsule 100 mg PO TID PRN (Reason: cough) Qty: 15 RF: 0 valacyclovir 1 gram tablet 500 mg PO QAM Qty: 0 RF: 0 fluorometholone 0.1 % drops,suspension 1 drp OPL DAILY RF: 0 albuterol sulfate 90 mcg/actuation Hfa Aerosol Inhaler 2 puff INHALATION Q4H PRN (Reason: Shortness Of Breath Or Wheezing) RF: 0 Discharge Orders: Discharge Order (Routine); Ordered 04/07/19 Ordered By: Bubba Sarmiento Admission Data Admit Date/Time: 04/05/19 19:38 Attending Provider: Bubba Sarmiento Admit Provider: Cameron Thakur Primary Care Provider: Noam Armando Other Providers: Dejon Cabrera ; Jessica Reed Other Interventions: Discharge Summary Assessment (RN) Last Done: 04/07/19 16:02
[2019-04-08] MEDS ORDERED: VALACYCLOVIR HCL 500 MG TABLET PO SCH (16:00)
== END 2019-04-07 17:12 | disposition home or self-care (01) | DRG 190 ==
LOC: ED 16:06 → SUATTDRO 19:38 → 2N 19:38

== ENCOUNTER 2021-04-14 14:22 | Inpatient (IN) ==
--- NOTE | 2021-04-14 14:44 | Emergency Department Note ---
History of Present Illness General Chief complaint: Shortness of Breath/Dyspnea Time Seen by Provider: 04/14/21 14:32 Source: patient and EMS Mode of arrival: EMS Limitations: no limitations History of Present Illness Provider complaint: Shortness of breath Onset (ago): day(s) 4 This is a 76-year-old female brought in by EMS with complaints of worsening shortness of breath. Patient states she began noticing she was more short of breath approximately 4 to 5 days ago. Patient does have an underlying history of COPD and wears 3 L of oxygen via nasal cannula at home chronically. Patient states she has been using her inhalers daily as prescribed. Patient states she started titrating up her oxygen due to the worsening shortness of breath. She states her breathing seems worse than her usual baseline and even more severe with attempts at laying down or ambulation. Patient denies noting any change in her cough, no change in color or frequency. Patient does go to dialysis and denies missing any treatments. She states she did have a normal full treatment this morning. Patient denies any other change in medications recently, although states her Advair was changed to the generic due to cost. Patient states she does still smoke a few cigarettes daily. Patient denies any sick contacts. Patient denies fevers or chills, or change in bowel movements. Patient denies noticing any lower extremity edema. Patient denies any history of heart problems including abnormal heart rhythm or CHF. EMS reported on 2 L via nasal cannula patient was 81% so she was then placed on 10 L/min on a nonrebreather with improvement in her oxygen saturation. Pt seen during a time of high acuity and national emergency pandemic while wearing PPE. Home Medications Medication Instructions Recorded Confirmed Type diltiazem HCl 120 mg 120 mg PO DAILY 09/26/18 04/14/21 History capsule,extended release 24 hr ergocalciferol (vitamin D2) 1,250 50,000 unit PO MONTHLY 09/26/18 04/14/21 History mcg (50,000 unit) capsule fluticasone 250 mcg-salmeterol 50 2 inh INHALATION BID 09/26/18 04/14/21 History mcg/dose blistr powdr for inhalation (Advair Diskus) hydralazine 50 mg tablet 100 mg PO BID 09/26/18 04/14/21 History ipratropium 0.5 mg-albuterol 3 mg 3 ml INHALATION QID PRN 09/26/18 04/14/21 H istory (2.5 mg base)/3 mL nebulization soln vitamin B complex-vitamin C-folic 1 tab PO QAM 09/26/18 04/14/21 History acid 0.8 mg tablet (Arabella-Tika) fluticasone propionate 50 2 spray INTRANASAL HS 01/18/19 04/14/21 History mcg/actuation nasal spray,suspension sevelamer carbonate 800 mg tablet See Rx Instructions .ROUTE .COMPLEX 01/18/19 04/14/21 History umeclidinium 62.5 mcg/actuation 1 inh INHALATION QAM 01/18/19 04/14/21 History blister powder for inhalation (Incruse Ellipta) albuterol sulfate 90 mcg/actuation 2 puff INHALATION Q4H PRN 04/05/19 04/14/21 History aerosol inhaler acetaminophen 325 mg tablet 650 mg PO Q6H PRN 04/14/21 04/14/21 History (Tylenol) camphor-menthol 0.5 %-0.5 % lotion 1 applic TOPICAL DIRECTED PRN 04/14/21 04/14/21 History docusate sodium 100 mg capsule 100 mg PO BID PRN 04/14/21 04/14/21 History (Colace) epoetin gabriel 10,000 unit/mL 0 unit IV DIRECTED 04/14/21 04/14/21 History injection solution (Procrit) lidocaine-prilocaine 2.5 %-2.5 % 1 applic TOPICAL DIRECTED PRN 04/14/21 04/14/21 History topical cream lisinopril 40 mg tablet 40 mg PO DAILY 04/14/21 04/14/21 History loperamide 2 mg capsule (Imodium 2 mg PO QID PRN 04/14/21 04/14/21 History A-D) prednisolone acetate 1 % eye 1 drp OPHTHALMIC (EYE) DAILY 04/14/21 04/14/21 History drops,suspension valacyclovir 1 gram tablet 1,000 mg PO QAM 04/14/21 04/14/21 History Allergies Allergy/AdvReac Type Severity Reaction Status Date / Time No Known Allergies Allergy Verified 04/14/21 15:32 Past Med/Surg History Medical History A-fib "paroxysmal" - follows with S cardiology Anemia of chronic disease AV fistula LUE COPD, moderate On 08/19/15 09:47 Mare Whyte wrote "2L O2 at home" Diastolic CHF DM type 2 (diabetes mellitus, type 2) IDDM Dyslipidemia ESRD (end stage renal disease) on dialysis follows with Dr. Bhakta; Hillary Corley, [facility] - [facility] (since 02/2013) GI bleed hx History of colon polyps History of Helicobacter pylori infection HTN (hypertension) Moderate mitral regurgitation "moderate to severe on 12/2015 echo" On 01/13/16 15:17 Blanca Chan wrote "echo 06/2015 - calcified mitral valve, moderate MR" On home oxygen therapy 3 LPM cont Osteoarthritis Surgical History H/O colonoscopy "2005, hyperplastic polyps repeat in 10 years " H/O nasal polypectomy History of cataract surgery History of intestinal surgery History of surgery AVF creation S/P appendectomy "1971" S/P cholecystectomy "1971" S/P left oophorectomy "1981" S/P ASH (total abdominal hysterectomy) "For Fibroids " Family History Father Myocardial infarction, Onset Age: 64 Mother , 87 Alzheimer disease Other No family history of adverse response to anesthesia Social History Smoking Status: Current every day smoker Tobacco Type: Cigarettes Second Hand Exposure: No; Hx Alcohol Use: No Hx Substance Use: No Preferred Language: Serbian Communication Ability: Effective 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 Beliefs That Will Affect Care: None marital status: / Current Living Situation: Alone current occupational status: retired Feels Safe at Home: Yes Assistive Devices: Glasses, Oxygen - Continuous and Walker Review of Systems A total of 10 systems reviewed and were otherwise negative All systems reviewed & are unremarkable except as noted in HPI & below Physical Exam Vital Signs Vital Signs - 24 hr 04/14/21 15:03 04/14/21 15:22 04/14/21 15:30 Temperature 37.5 C Temperature Source Oral Pulse Rate 69 108 H 70 Pulse Rate from SpO2 Sensor 71 70 Respiratory Rate 26 H 20 16 Respiratory Effort / Characteristics Spontaneous Blood Pressure 135/69 137/101 H 125/55 L Blood Pressure Mean 91 113 78 Blood Pressure Position Lying Pulse Oximetry 96 98 97 Oxygen Delivery Method Non-rebreather Oxygen Flow Rate 10 Sepsis Recent Fever Within 48 Hours No Sepsis New/Unexplained Change in Mental Status No Sepsis Action Taken by Nursing No Action Required Oxygen Flow Rate - Titration 5 Pulse Oximetry Post Tiitration 99 04/14/21 16:00 04/14/21 16:30 04/14/21 17:00 Temperature Temperature Source Pulse Rate 69 68 70 Pulse Rate from SpO2 Sensor 69 68 70 Respiratory Rate 23 21 20 Respiratory Effort / Characteristics Blood Pressure 130/53 L 109/41 L 120/55 L Blood Pressure Mean 78 63 76 Blood Pressure Position Pulse Oximetry 98 95 91 Oxygen Delivery Method Oxygen Flow Rate Sepsis Recent Fever Within 48 Hours Sepsis New/Unexplained Change in Mental Status Sepsis Action Taken by Nursing Oxygen Flow Rate - Titration Pulse Oximetry Post Tiitration GENERAL: alert, unwell appearing, well nourished, no distress, non-toxic EYE EXAM: normal conjunctiva, PERRL and EOM's grossly intact OROPHARYNX: no exudate, no erythema, lips, buccal mucosa, and tongue normal and mucous membranes are moist NECK: supple, no nuchal rigidity, no adenopathy, non-tender LUNGS: Decreased bilaterally to auscultation. Normal chest wall mechanics, no w/r/r, no retractions, no tachypnea, no increased work of breathing HEART: no murmurs, S1 normal and S2 normal, A. fib with RVR noted on telemetry ABDOMEN: abdomen soft, non-tender, normo-active bowel sounds, no masses, no rebound or guarding. BACK: Back is symmetrical on inspection and there is no deformity, no midline tenderness, no CVA tenderness. SKIN: no rashes and no bruising UPPER EXTREMITIES: upper extremities are grossly normal. FROM, nml pulses b/l. LOWER EXTREMITIES: No pitting edema. FROM, nml pulses b/l. NEURO EXAM: Normal sensorium, cranial nerves II-XII grossly intact, normal speech, no gross weakness of arms, no gross weakness of legs. Gross sensation intact. Course Course 1701: Patient updated on results thus far. Patient was able to slowly be weaned back down to 3.5 L/min on anoxia mask and at rest feels comfortable on this. Heart rate has still been fluctuating between a controlled A. fib in the 70s and A. fib with RVR. 1722: [facility]. Administered Medications Fluticasone Propionate (Fluticasone Propionate Na Spr 16 Gm Btl) 2 sprays SUNIL H S MARY Stop: 05/14/21 20:59 Last Admin: 04/14/21 22:10 Dose: 2 sprays Documented by: [id number] Heparin Sodium (Porcine) (Heparin Sod 5,000 Unit/0.5 Ml Vial) 5,000 units SQ Q12 MARY Stop: 05/14/21 20:59 Last Admin: 04/14/21 22:10 Dose: 5,000 units Documented by: [id number] Hydralazine HCl (Hydralazine Tab 50 Mg Tab) 100 mg PO BID MARY Stop: 05/14/21 20:59 Last Admin: 04/14/21 22:11 Dose: 100 mg Documented by: [id number] Insulin Aspart (Insulin Aspart Per Unit) 0 units SC ACHS MARY Stop: 05/14/21 20:59 Last Admin: 04/14/21 21:23 Dose: 1 units Documented by: [id number] Cosigned by: [id number] Ipratropium Victor (Ipratropium Victor Neb Soln 0.02% 2.5 Ml Vial) 0.5 mg INH Q6R MARY Stop: 05/14/21 19:39 Last Admin: 04/14/21 20:43 Dose: 0.5 mg Documented by: [id number] Levalbuterol HCl (Levalbuterol 1.25mg/0.5ml Neb) 1.25 mg INH Q6R MARY Stop: 05/14/21 19:39 Last Admin: 04/14/21 20:43 Dose: 1.25 mg Documented by: [id number] Nicotine (Nicotine 7 Mg/24 Hr Tdsy) 7 mg TD QAM MARY Stop: 05/14/21 19:39 Last Admin: 04/14/21 22:09 Dose: 7 mg Documented by: [id number] Discontinued Medications Doxycycline Hyclate (Doxycycline Hyclate 100 Mg Cap) 100 mg PO NOW STA Stop: 04/14/21 17:00 Last Admin: 04/14/21 17:50 Dose: 100 mg Documented by: [id number] Methylprednisolone (Methylprednisolone 125 Mg/2 Ml Vial) 60 mg IV NOW STA Stop: 04/14/21 17:00 Last Admin: 04/14/21 17:50 Dose: 60 mg Documented by: [id number] Potassium Chloride (Potassium Chloride Crtab 20 Meq Tabcr) 20 meq PO NOW STA Stop: 04/14/21 18:07 Last Admin: 04/14/21 18:19 Dose: 20 meq Documented by: [id number] Medical Decision Making Differential Diagnosis Differential diagnoses includes but is not limited to pneumonia, bronchitis, COPD/Asthma exacerbation, pneumothorax, pulmonary embolism, congestive heart failure, acute coronary syndrome Medical Records Attestation: I reviewed the patient's medical records. Home Medications Current Medication List: was personally reviewed by me Laboratory Data Attestation: I reviewed the patient's lab results. Result diagrams: 04/14/21 15:03 04/14/21 15:03 Lab Results 04/14/21 04/14/21 04/14/21 Range/Units 15:03 15:03 15:03 WBC 5.57 (4.8-10.8) K/uL RBC 2.18 L (4.2-5.4) M/uL Hgb 8.6 L (12.0-16.0) g/dL Hct 26.3 L (37-47) % MCV 120.6 H (80-100) fL MCH 39.4 H (25-34) pg MCHC 32.7 (32-36) g/dL RDW Std Deviation 63.2 H (36.4-46.3) fL RDW Coeff of Fior 14.4 (11.5-14.5) % Plt Count 160 (130-400) K/uL MPV 10.7 H (7.4-10.4) fL Immature Gran % (Auto) 0.2 % Neut % (Auto) 79.7 % Lymph % (Auto) 9.7 % Knott % (Auto) 9.2 % Eos % (Auto) 0.7 % Baso % (Auto) 0.5 % Neut # (Auto) 4.44 (1.4-6.5) K/uL Lymph # (Auto) 0.54 L (1.2-3.4) K/uL Knott # (Auto) 0.51 (0.11-0.59) K/uL Eos # (Auto) 0.04 (0-0.5) K/uL Baso # (Auto) 0.03 (0-0.2) K/uL Immature Gran # (Auto) 0.01 (0.00-0.02) K/uL Polychromasia 1+ Macrocytosis Present PT 10.2 (9.0-12.0) Seconds INR 1.0 (0.9-1.1) Sodium 144 (136-145) mmol/L Potassium 3.1 L (3.5-5.1) mmol/L Chloride 101 (98-107) mmol/L Carbon Dioxide 35 H (21-32) mmol/L Anion Gap 8 (3-11) BUN 9 (6-23) mg/dl Creatinine 3.42 H (0.6-1.2) mg/dl Est Cr Clr Drug Dosing 16.1 ml/min Est GFR ( Amer) 14.5 ml/min Est GFR (Non-Af Amer) 12.5 ml/min BUN/Creatinine Ratio 2.6 L (10-20) Glucose 152 H (70-99(Fasting)) mg/dl Calcium 8.7 (8.5-10.1) mg/dl Magnesium 2.0 (1.7-2.4) mg/dl Iron (35-150) mcg/dl Transferrin (200-360) mg/dl Ferritin (8-388) ng/ml Total Bilirubin 0.4 (0.2-1.0) mg/dl AST 16 (13-39) U/L ALT 12 (7-52) U/L Alkaline Phosphatase 86 (34-104) U/L Troponin I 0.03 (0-0.04) ng/ml B-Natriuretic Peptide (0-100) pg/ml Total Protein 5.8 L (6.0-8.3) gm/dl Albumin 3.5 (3.4-5.0) gm/dl Globulin 2.3 L (2.5-4.0) gm/dl Albumin/Globulin Ratio 1.5 (0.9-2) Vitamin B12 (211-911) pg/ml Folate (>5.38) ng/ml SARS-CoV-2 (PCR) (Negative) Influenza Type A (PCR) (Neg) Influenza Type B (PCR) (Neg) RSV (RT-PCR) (Neg) 04/14/21 04/14/21 04/14/21 Range/Units 15:03 15:03 15:04 WBC (4.8-10.8) K/uL RBC (4.2-5.4) M/uL Hgb (12.0-16.0) g/dL Hct (37-47) % MCV (80-100) fL MCH (25-34) pg MCHC (32-36) g/dL RDW Std Deviation (36.4-46.3) fL RDW Coeff of Fior (11.5-14.5) % Plt Count (130-400) K/uL MPV (7.4-10.4) fL Immature Gran % (Auto) % Neut % (Auto) % Lymph % (Auto) % Knott % (Auto) % Eos % (Auto) % Baso % (Auto) % Neut # (Auto) (1.4-6.5) K/uL Lymph # (Auto) (1.2-3.4) K/uL Knott # (Auto) (0.11-0.59) K/uL Eos # (Auto) (0-0.5) K/uL Baso # (Auto) (0-0.2) K/uL Immature Gran # (Auto) (0.00-0.02) K/uL Polychromasia Macrocytosis PT (9.0-12.0) Seconds INR (0.9-1.1) Sodium (136-145) mmol/L Potassium (3.5-5.1) mmol/L Chloride (98-107) mmol/L Carbon Dioxide (21-32) mmol/L Anion Gap (3-11) BUN (6-23) mg/dl Creatinine (0.6-1.2) mg/dl Est Cr Clr Drug Dosing ml/min Est GFR ( Amer) ml/min Est GFR (Non-Af Amer) ml/min BUN/Creatinine Ratio (10-20) Glucose (70-99(Fasting)) mg/dl Calcium (8.5-10.1) mg/dl Magnesium (1.7-2.4) mg/dl Iron 93 (35-150) mcg/dl Transferrin 149 L (200-360) mg/dl Ferritin 577.9 H (8-388) ng/ml Total Bilirubin (0.2-1.0) mg/dl AST (13-39) U/L ALT (7-52) U/L Alkaline Phosphatase (34-104) U/L Troponin I (0-0.04) ng/ml B-Natriuretic Peptide 516 H (0-100) pg/ml Total Protein (6.0-8.3) gm/dl Albumin (3.4-5.0) gm/dl Globulin (2.5-4.0) gm/dl Albumin/Globulin Ratio (0.9-2) Vitamin B12 316 (211-911) pg/ml Folate > 22.30 (>5.38) ng/ml SARS-CoV-2 (PCR) (Negative) Influenza Type A (PCR) (Neg) Influenza Type B (PCR) (Neg) RSV (RT-PCR) (Neg) 04/14/21 Range/Units 16:04 WBC (4.8-10.8) K/uL RBC (4.2-5.4) M/uL Hgb (12.0-16.0) g/dL Hct (37-47) % MCV (80-100) fL MCH (25-34) pg MCHC (32-36) g/dL RDW Std Deviation (36.4-46.3) fL RDW Coeff of Fior (11.5-14.5) % Plt Count (130-400) K/uL MPV (7.4-10.4) fL Immature Gran % (Auto) % Neut % (Auto) % Lymph % (Auto) % Knott % (Auto) % Eos % (Auto) % Baso % (Auto) % Neut # (Auto) (1.4-6.5) K/uL Lymph # (Auto) (1.2-3.4) K/uL Knott # (Auto) (0.11-0.59) K/uL Eos # (Auto) (0-0.5) K/uL Baso # (Auto) (0-0.2) K/uL Immature Gran # (Auto) (0.00-0.02) K/uL Polychromasia Macrocytosis PT (9.0-12.0) Seconds INR (0.9-1.1) Sodium (136-145) mmol/L Potassium (3.5-5.1) mmol/L Chloride (98-107) mmol/L Carbon Dioxide (21-32) mmol/L Anion Gap (3-11) BUN (6-23) mg/dl Creatinine (0.6-1.2) mg/dl Est Cr Clr Drug Dosing ml/min Est GFR ( Amer) ml/min Est GFR (Non-Af Amer) ml/min BUN/Creatinine Ratio (10-20) Glucose (70-99(Fasting)) mg/dl Calcium (8.5-10.1) mg/dl Magnesium (1.7-2.4) mg/dl Iron (35-150) mcg/dl Transferrin (200-360) mg/dl Ferritin (8-388) ng/ml Total Bilirubin (0.2-1.0) mg/dl AST (13-39) U/L ALT (7-52) U/L Alkaline Phosphatase (34-104) U/L Troponin I (0-0.04) ng/ml B-Natriuretic Peptide (0-100) pg/ml Total Protein (6.0-8.3) gm/dl Albumin (3.4-5.0) gm/dl Globulin (2.5-4.0) gm/dl Albumin/Globulin Ratio (0.9-2) Vitamin B12 (211-911) pg/ml Folate (>5.38) ng/ml SARS-CoV-2 (PCR) NEGATIVE (Negative) Influenza Type A (PCR) Negative (Neg) Influenza Type B (PCR) Negative (Neg) RSV (RT-PCR) Negative (Neg) Imaging Data Radiologist's Impression: Chest X-Ray 04/14/21 14:40 XR chest 1V portable CLINICAL HISTORY: sob. COMPARISON STUDY: 04/05/2019 TECHNIQUE: 1 view of the chest FINDINGS: Single frontal view of the chest demonstrates the heart to now be mildly enlarged. The lungs are clear of alveolar opacities. However, there is haziness at both lung bases suspicious for small bilateral pleural effusions. There is no evidence for vascular congestion. There is no acute osseous pathology. IMPRESSION: Suspicion of small bilateral pleural effusions. Follow-up PA and lateral radiographs would be helpful for further evaluation. ACT 112: Negative or not required by law. Electronically signed by: Chase Paiz M.D. 04/14/2021 3:09 PM ECG Data Attestation: I personally reviewed and interpreted this ECG as follows: Indication: + SOB/dyspnea Rate (beats per minute): 126 Rhythm: + atrial fibrillation ECG Intervals/blocks: + Normal QRS and + Normal QT ECG [place]: + Normal ECG ST segments: + Nonspecific ST abnormalities MDM Narrative This is a 76-year-old female who presents due to concern for worsening dyspnea over the last 4 to 5 days. Patient does have prior pulmonary history and cardiac history. Patient initially found to be in atrial fibrillation with RVR however broke on her own without additional rate controlling meds to an atrial fibrillation in the 70s. Patient was slowly able to be weaned down to maintain oxygen saturations in the low 90s to 3-1/2 L. Patient does wear oxygen chronically. No evidence of focal consolidation on x-ray imaging. Pleural effusions noted, however I suspect some of this is chronic given her chronic kidney disease. Patient did undergo dialysis earlier today. Patient does have a history of anemia, H&H today low however stable compared to prior. COVID swab negative. Patient started on treatment for likely COPD exacerbation and case discussed with hospitalist for additional evaluation and management. Patient remained hemodynamically stable while in the emergency room. An order was placed for continuous cardiac monitoring. The monitor shows a rate of _76__ with _atrial fibrillation_ rhythm. Impression & Plan Dyspnea, COPD exacerbation, Chronic kidney disease with end stage renal failure on dialysis, Anemia of chronic disease, Chronic respiratory failure with hypoxia, on home O2 therapy, Atrial fibrillation with rapid ventricular response Discharge Plan Visit Data Chief Complaint: Shortness of Breath/Dyspnea ED Provider: Alexus Masterson Discharge Problem: Dyspnea, COPD exacerbation, Chronic kidney disease with end stage renal failure on dialysis, Anemia of chronic disease, Chronic respiratory failure with hypoxia, on home O2 therapy, Atrial fibrillation with rapid ventricular response Patient Disposition: Being Evaluated by Hospitalist Discharge Instructions Interventions: ED Discharge Assessment Last Done: 04/14/21 19:39
--- NOTE | 2021-04-14 15:10 | XRay Report ---
XR chest 1V portable CLINICAL HISTORY: sob. COMPARISON STUDY: 04/05/2019 TECHNIQUE: 1 view of the chest FINDINGS: Single frontal view of the chest demonstrates the heart to now be mildly enlarged. The lungs are yan r of alveolar opacities. However, there is haziness at both lung bases suspicious for small bilateral pleural effusions. There is no evidence for vascular congestion. There is no acute osseous pathology . IMPRESSION: Suspicion of small bilateral pleural effusions. Follow-up PA and lateral radiographs woul d be helpful for further evaluation. ACT 112: Negative or not required by law. Electronically signed by: Chase Paiz M.D. 04/14/2021 3:09 PM
[2021-04-14 15:11] LABS: Basophils # (auto) 0.03 K/uL (0-0.2); Basophils % (auto) 0.5 %; Eosinophils # (auto) 0.04 K/uL (0-0.5); Eosinophils % (auto) 0.7 %; Hematocrit (blood only) 26.3 % (37-47); Hemoglobin 8.6 g/dL (12.0-16.0); Immature Granulocytes # (auto) 0.01 K/uL (0.00-0.02); Immature Granulocytes % (auto) 0.2 %; Lymphocytes # (auto) 0.54 K/uL (1.2-3.4); Lymphocytes % (auto) 9.7 %; Mean Corpuscular Hemoglobin 39.4 pg (25-34); Mean Corpuscular Hgb Conc 32.7 g/dL (32-36); Mean Corpuscular Volume 120.6 fL (80-100); Mean Platelet Volume 10.7 fL (7.4-10.4); Monocytes # (auto) 0.51 K/uL (0.11-0.59); Monocytes % (auto) 9.2 %; Neutrophils # (auto) 4.44 K/uL (1.4-6.5); Neutrophils % (auto) 79.7 %; Platelet Count 160 K/uL (130-400); RDW Coefficient of Variation 14.4 % (11.5-14.5); RDW Standard Deviation 63.2 fL (36.4-46.3); Red Blood Count 2.18 M/uL (4.2-5.4); White Blood Count 5.57 K/uL (4.8-10.8)
[2021-04-14 15:21] LABS: Prothrombin Time 10.2 Seconds (9.0-12.0)
[2021-04-14 15:27] LABS: Macrocytosis Present; Polychromasia 1+
[2021-04-14 15:40] LABS: Troponin I 0.03 ng/ml (0-0.04)
[2021-04-14 15:44] LABS: Albumin Globulin Ratio 1.5 (0.9-2); Albumin Level 3.5 gm/dl (3.4-5.0); BUN Creatinine Ratio 2.6 (10-20); Bilirubin,Total 0.4 mg/dl (0.2-1.0); Calcium 8.7 mg/dl (8.5-10.1); Creatinine Clr Calc Pharmacy 16.1 ml/min; Est GFR (African American) 14.5 ml/min; Est GFR (Non-African American) 12.5 ml/min; Globulin 2.3 gm/dl (2.5-4.0); Potassium 3.1 mmol/L (3.5-5.1); Total Protein 5.8 gm/dl (6.0-8.3)
[2021-04-14] MEDS ORDERED: methylPREDNISolone 125 MG/2 ML VIAL IV STA (16:59)
[2021-04-14] MEDS ORDERED: DOXYCYCLINE HYCLATE 100 MG CAP PO STA (16:59)
[2021-04-14 17:06] LABS: Influenza A virus by PCR Negative (Neg); Influenza B virus by PCR Negative (Neg); RSV by PCR Negative (Neg); SARS CoV2 RNA(COVID-19) InHosp NEGATIVE (Negative)
[2021-04-14] MEDS ORDERED: POTASSIUM CHLORIDE CRTAB 20 MEQ TABCR PO STA (18:06)
--- NOTE | 2021-04-14 18:19 | History & Physical Report ---
Date of Service April 14, 2021 Assessment & Plan (1) COPD exacerbation: (2) Chronic respiratory failure with hypoxia: Plan: Patient is 76 y/o F with PMH ESRD on HD on tue schedule, insulin dependent DM II, chronic anemia, HTN, diastolic dysfunction, PAF, COPD, chronic respiratory failure on 3L O2 presented to ER with c/o cough and SOB x 3-4 days. No leukocytosis. Negative COVID-19, influenza and RSV PCR. CXR: no infiltrate -In ER afebrile, initially on 10L via nonrebreather and has been able to be titrated down to 3.5L via nonrebreather -Continue chronic 3L oxygen -In ER given Solumedrol 60mg IV, doxycycline po -Continue Doxycycline -Solumedrol 40mg daily -Xopenex/atrovent nebs -Continue Advair. Will hold incruse ellipta since on duonebs -CBC, BMP in am A-fib: History Paroxysmal atrial fibrillation Not on anticoagulation secondary to H/O GI bleed Atrial fibrillation in ER with episodes of tachycardia into 120's. Current HR in 70's -Continue diltiazem -Lopressor prn tachycardia -Echo Acute on Chronic Anemia History of Anemia of chronic disease: Hgb: 8.6. Baseline Hgb in 10's -anemia labs, FOBT pending -Monitor H&H ESRD (end stage renal disease) on dialysis: On Tue schedule Had HD today -Continue renal meds -Nephrology consult for HD DM type 2 (diabetes mellitus, type 2): A1c: 5.7 in 05/2020 Now diet controlled Novolog sliding scale per protocol HTN (hypertension): Stable -Continue losartan, hydralazine, diltiazem DVT Prophylaxis -Heparin SQ CPR, defibrillation ok, no intubation as per discussion with pt Follows with Dr Armando for routine care Pt was seen and care coordinated with Dr Reyna. See addendum History of Present Illness Chief Complaint: SOB Primary Care Provider: Noam Armando MD Patient is 76 y/o F with PMH ESRD on HD on tue schedule, insulin dependent DM II, chronic anemia, HTN, diastolic dysfunction, PAF, COPD, chronic respiratory failure on 3L O2 presented to ER with c/o cough and SOB x 3-4 days. Patient reports increased SOB with exertion and has cough with clear productive sputum in morning and nonproductive during the day. Has been using duonebs at home four times a day without much improvement. Twin at home in to see patient and found to be hypoxic on her 3L oxygen with standing and had episodes HR 70s-120s. Sleeps with head raised at baseline. Patient states that she feels "wiped out" the past couple of days. Denies fever/chills, diaphoresis, N/V/D/C, BETANCOURT, dizziness, syncope, vision changes, neck pain, CP, orthopnea, palpitations, sore throat, choking, otalgia, rhinorrhea, abdominal pain, paresthesias, extremity weakness, extremity edema, rashes, urinary symptoms, melena, hematochezia. Allergies Allergy/AdvReac Type Severity Reaction Status Date / Time No Known Allergies Allergy Verified 04/14/21 15:32 Home Medications Medication Instructions Recorded Confirmed Type diltiazem HCl 120 mg 120 mg PO DAILY 09/26/18 04/14/21 History capsule,extended release 24 hr ergocalciferol (vitamin D2) 1,250 50,000 unit PO MONTHLY 09/26/18 04/14/21 History mcg (50,000 unit) capsule fluticasone 250 mcg-salmeterol 50 2 inh INHALATION BID 09/26/18 04/14/21 History mcg/dose blistr powdr for inhalation (Advair Diskus) hydralazine 50 mg tablet 100 mg PO BID 09/26/18 04/14/21 History ipratropium 0.5 mg-albuterol 3 mg 3 ml INHALATION QID PRN 09/26/18 04/14/21 History (2.5 mg base)/3 mL nebulization soln vitamin B complex-vitamin C-folic 1 tab PO QAM 09/26/18 04/14/21 History acid 0.8 mg tablet (Arabella-Tika) fluticasone propionate 50 2 spray INTRANASAL HS 01/18/19 04/14/21 History mcg/actuation nasal spray,suspension sevelamer carbonate 800 mg tablet See Rx Instructions .ROUTE .COMPLEX 01/18/19 04/14/21 History umeclidinium 62.5 mcg/actuation 1 inh INHALATION QAM 01/18/19 04/14/21 History blister powder for inhalation (Incruse Ellipta) albuterol sulfate 90 mcg/actuation 2 puff INHALATION Q4H PRN 04/05/19 04/14/21 History aerosol inhaler acetaminophen 325 mg tablet 650 mg PO Q6H PRN 04/14/21 04/14/21 History (Tylenol) camphor-menthol 0.5 %-0.5 % lotion 1 applic TOPICAL DIRECTED PRN 04/14/21 04/14/21 History docusate sodium 100 mg capsule 100 mg PO BID PRN 04/14/21 04/14/21 History (Colace) epoetin gabriel 10,000 unit/mL 0 unit IV DIRECTED 04/14/21 04/14/21 History injection solution (Procrit) lidocaine-prilocaine 2.5 %-2.5 % 1 applic TOPICAL DIRECTED PRN 04/14/21 04/14/21 History topical cream lisinopril 40 mg tablet 40 mg PO DAILY 04/14/21 04/14/21 History loperamide 2 mg capsule (Imodium 2 mg PO QID PRN 04/14/21 04/14/21 History A-D) prednisolone acetate 1 % eye 1 drp OPHTHALMIC (EYE) DIRECTED 04/14/21 04/14/21 History drops,suspension valacyclovir 1 gram tablet 1,000 mg PO QAM 04/14/21 04/14/21 History Past Med/Surg History Medical History A-fib "paroxysmal" - follows with [facility] cardiology Anemia of chronic disease AV fistula LUE COPD, moderate On 08/19/15 09:47 Mare Whyte wrote "2L O2 at home" Diastolic CHF DM type 2 (diabetes mellitus, type 2) IDDM Dyslipidemia ESRD (end stage renal disease) on dialysis follows with Dr. Bhakta; Hillary Corley, Luis Carlos - Count Includes [facility] (since 02/2013) GI bleed hx History of colon polyps History of Helicobacter pylori infection HTN (hypertension) Moderate mitral regurgitation "moderate to severe on 12/2015 echo" On 01/13/16 15:17 Blanca Chan wrote "echo 06/2015 - calcified mitral valve, moderate MR" On home oxygen therapy 3 LPM cont Osteoarthritis Surgical History H/O colonoscopy "2005, hyperplastic polyps repeat in 10 years " H/O nasal polypectomy History of cataract surgery History of intestinal surgery History of surgery AVF creation S/P appendectomy "1971" S/P cholecystectomy "1971" S/P left oophorectomy "1981" S/P ASH (total abdominal hysterectomy) "For Fibroids " Family History Father Myocardial infarction, Onset Age: 64 Mother , 87 Alzheimer disease Other No family history of adverse response to anesthesia Social History Smoking Status: Current every day smoker Tobacco Type: Cigarettes Second Hand Exposure: No; Hx Alcohol Use: No Hx Substance Use: No Preferred Language: Mexican Communication Ability: Effective Agricultural 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 Beliefs That Will Affect Care: None marital status: / Current Living Situation: Alone current occupational status: retired Feels Safe at Home: Yes Assistive Devices: Glasses, Oxygen - Continuous and Walker Review of Systems Review of Systems: All systems reviewed & are unremarkable except as noted in HPI & below Physical Exam Physical Exam: General: no acute distress, WDWN Head: normocephalic, atraumatic Eyes: PERRL, EOM's intact, conjunctiva non-injected, anicteric ENT: normal inspection external ears, nose, mucous membranes moist Neck: supple, trachea midline Lungs: no respiratory distress on current 3.5L oxymask with sat 98%, diminished breath sounds without wheezing/rhonchi/rales CV: irregularly irregular, rate 58-76, +systolic murmur, no pretibial edema Abd: normal BS, soft, non-tender Ext: no cyanosis, no calf tenderness Neuro: A&O x 3, no focal deficits noted, normal affect Skin: warm, dry Results & Data Results & Data ([facility]) Vital Signs (Past 12 Hours) Vital Signs Temp Pulse Resp BP Pulse Ox 04/14/21 15:22 37.5 C 108 H 20 137/101 H 98 Laboratory Results Short CBC 04/14/21 Range/Units 15:03 WBC 5.57 (4.8-10.8) K/uL Hgb 8.6 L (12.0-16.0) g/dL Hct 26.3 L (37-47) % Plt Count 160 (130-400) K/uL BMP 04/14/21 15:03 Sodium 144 Potassium 3.1 L Chloride 101 Carbon Dioxide 35 H BUN 9 Creatinine 3.42 H Glucose 152 H Calcium 8.7 Cardiac Enzymes 04/14/21 Range/Units 15:03 Troponin I 0.03 (0-0.04) ng/ml Liver Function 04/14/21 Range/Units 15:03 Total Bilirubin 0.4 (0.2-1.0) mg/dl AST 16 (13-39) U/L ALT 12 (7-52) U/L Alkaline Phosphatase 86 (34-104) U/L Albumin 3.5 (3.4-5.0) gm/dl Diagnostic Findings Chest X-Ray 04/14/21 14:40 XR chest 1V portable CLINICAL HISTORY: sob. COMPARISON STUDY: 04/05/2019 TECHNIQUE: 1 view of the chest FINDINGS: Single frontal view of the chest demonstrates the heart to now be mildly enlarged. The lungs are clear of alveolar opacities. However, there is haziness at both lung bases suspicious for small bilateral pleural effusions. There is no evidence for vascular congestion. There is no acute osseous pathology. IMPRESSION: Suspicion of small bilateral pleural effusions. Follow-up PA and lateral radiographs would be helpful for further evaluation. ACT 112: Negative or not required by law. Electronically signed by: Chase Paiz M.D. 04/14/2021 3:09 PM Supervising Physician Co-Signing Physician Notes Patient is a 76-year-old female with history of end-stage renal disease on dialysis, diabetes mellitus, COPD, ongoing tobacco use and other medical problems presents with history of worsening cough with clear expectoration, shortness of breath since 4 to 5 days duration. Patient admits to having dialysis this morning. She has been using her nebulizers four times a day which has not improved her symptoms. She is on 3 L of supplemental oxygen at home. She admits to taking her medications regularly. Please review HPI for complete details of presentation. Blood work suggestive of acute on chronic macrocytic anemia with hemoglobin 8.6. Denies any bleeding issues, melena. She receives IV Venofer with dialysis as per family. Potassium noted at 3.1 creatinine elevated at 3.42 glucose elevated at 152. COVID, influenza, RSV screen negative. Chest x-ray suspicious for small bilateral pleural effusion. On exam patient is moderately built and nourished, no apparent distress, elderly, normoc ephalic atraumatic, EOMI, decreased breath sounds, clear to auscultation, irregularly irregular rhythm,+ murmur, no pedal edema, abdomen soft, nontender, normal bowel sounds, alert, awake, oriented, grossly no focal deficits. Patient is admitted for management of acute on chronic respiratory failure with hypoxia secondary to COPD exacerbation, symptomatic anemia. Agree with Solu-Medrol, doxycycline, nebs. Continue home inhalers. Agree with insulin sliding scale to manage diabetes mellitus. Continue home medications for paroxysmal A. fib. Patient currently not on any anticoagulation given history of GI bleed. Anemia work-up requested. Will likely need IV Venofer with dialysis. Nephrology consulted for dialysis management. Titrate oxygen to keep saturations between 88 to 92%. We will update echo. Counseled to quit smoking. Nicotine patch. I personally reviewed the record. Patient is interviewed and examined at bedside. Patient's care is coordinated with Clau Bedolla PA-C. Please refer to the documentation above for details of patient's presentation and for discussion of other issues.
[2021-04-14] MEDS ORDERED: XOPENEX/ATROVENT 1.25mg/0.5MG NEB COMBO NEB SCH (19:40)
[2021-04-14] MEDS ORDERED: DEXTROSE 50% 50 ML SYRINGE IV PRN (19:40)
[2021-04-14] MEDS ORDERED: GLUCOSE 40% GEL 15 GM TUBE PO PRN (19:40)
[2021-04-14] MEDS ORDERED: DOCUSATE SODIUM 100 MG CAP PO PRN (19:40)
[2021-04-14] MEDS ORDERED: GLUCAGON FOR INJ 1 MG VIAL SQ PRN (19:40)
[2021-04-14] MEDS ORDERED: METOPROLOL TARTRATE 1 MG/ML VIAL IV PRN (19:40)
[2021-04-14] MEDS ORDERED: GLUCOSE 10 TABS/TUBE PO PRN (19:40)
[2021-04-14] MEDS ORDERED: PREDNISOLONE ACETATE 1% OP SCH (19:40)
[2021-04-14] MEDS ORDERED: ACETAMINOPHEN 325 MG TAB PO PRN (19:40)
[2021-04-14] MEDS ORDERED: CARBOHYDRATES FOR HYPOGLYCEMIA PO PRN (19:40)
[2021-04-14] MEDS ORDERED: SEVELAMER HCL 800 MG TABLET PO PRN (20:33)
[2021-04-14 20:39] LABS: Folate (Folic Acid) > 22.30 ng/ml (>5.38)
[2021-04-14 20:40] LABS: Vitamin B12 316 pg/ml (211-911)
[2021-04-14] MEDS: IPRATROPIUM BROMIDE NEB SOLN 0.02% 2.5 ML VIAL INH SCH (20:43)
[2021-04-14] MEDS: LEVALBUTEROL 1.25MG/0.5ML NEB INH SCH (20:43)
[2021-04-14] MEDS: INSULIN ASPART PER UNIT SC SCH (21:23)
[2021-04-14] MEDS: NICOTINE 7 MG/24 HR TDSY TD SCH (22:09)
[2021-04-14] MEDS: HEPARIN SOD 5,000 UNIT/0.5 ML VIAL SQ SCH (22:10)
[2021-04-14] MEDS: FLUTICASONE PROPIONATE NA SPR 16 GM BTL NAE SCH (22:10)
[2021-04-14] MEDS: hydrALAZINE TAB 50 MG TAB PO SCH (22:11)
[2021-04-14 22:15] LABS: Ferritin 577.9 ng/ml (8-388)
[2021-04-15] MEDS: LEVALBUTEROL 1.25MG/0.5ML NEB INH SCH ×4 (00:18→20:43)
[2021-04-15] MEDS: IPRATROPIUM BROMIDE NEB SOLN 0.02% 2.5 ML VIAL INH SCH ×4 (00:18→20:44)
[2021-04-15] MEDS: DOXYCYCLINE HYCLATE 100 MG CAP PO SCH ×2 (05:33→18:50)
[2021-04-15 06:17] LABS: Hematocrit (blood only) 26.4 % (37-47); Hemoglobin 8.4 g/dL (12.0-16.0); Mean Corpuscular Hemoglobin 38.7 pg (25-34); Mean Corpuscular Hgb Conc 31.8 g/dL (32-36); Mean Corpuscular Volume 121.7 fL (80-100); Mean Platelet Volume 10.5 fL (7.4-10.4); Platelet Count 169 K/uL (130-400); RDW Coefficient of Variation 14.4 % (11.5-14.5); RDW Standard Deviation 62.5 fL (36.4-46.3); Red Blood Count 2.17 M/uL (4.2-5.4); White Blood Count 3.65 K/uL (4.8-10.8)
--- NOTE | 2021-04-15 06:17 | Electrocardiogram Report ---
Test Reason : Blood Pressure : / mmHG Vent. Rate : 126 BPM Atrial Rate : 129 BPM P-R Int : 000 ms QRS Dur : 096 ms QT Int : 330 ms P-R-T Axes : 000 056 -70 degrees QTc Int : 477 ms Poor data quality, interpretation may be adversely affected Atrial fibrillation with rapid ventricular response Septal infarct , age undetermined Nonspecific ST abnormality Abnormal ECG When compared with ECG of 05-APR-2019 16:47, Atrial fibrillation has replaced Sinus rhythm Nonspecific ST abnormality is now Present Confirmed by Willie Castro ([id number]) on 04/15/2021 6:17:39 AM Referred By: ED Confirmed By:Willie Castro
[2021-04-15 06:57] LABS: BUN Creatinine Ratio 3.4 (10-20); Calcium 8.8 mg/dl (8.5-10.1); Creatinine Clr Calc Pharmacy 10.6 ml/min; Est GFR (African American) 8.7 ml/min; Est GFR (Non-African American) 7.5 ml/min
[2021-04-15 08:01] LABS: Estimated Average Glucose 100 mg/dl; Hemoglobin A1C 5.1 % (4.5-5.6)
[2021-04-15] MEDS: SEVELAMER HCL 800 MG TABLET PO SCH ×3 (08:49→17:35)
[2021-04-15] MEDS: dilTIAZem HCL 120 MG CAPCR PO SCH (08:50)
[2021-04-15] MEDS: hydrALAZINE TAB 50 MG TAB PO SCH ×2 (08:50→21:25)
[2021-04-15] MEDS: FLUTICASONE/VILANTEROL 100/25MCG 14 PUFFS/INHALER INH SCH (08:50)
[2021-04-15] MEDS: lisinopril 40 MG TAB PO SCH (08:50)
[2021-04-15] MEDS: HEPARIN SOD 5,000 UNIT/0.5 ML VIAL SQ SCH ×2 (08:50→20:17)
[2021-04-15] MEDS: prednisoLONE acetate 1% OP SUSP 5 ML BTL OPL SCH (08:51)
[2021-04-15] MEDS: NICOTINE 7 MG/24 HR TDSY TD SCH (08:51)
[2021-04-15] MEDS: valACYclovir HCL 500 MG TABLET PO SCH (08:51)
[2021-04-15] MEDS ORDERED: Flu Vaccine-High Dose (Fluzone-HD) PF 65+ 0.7mL SYR IM ONE (09:00)
[2021-04-15] MEDS ORDERED: methylPREDNISolone 40 MG in SYRINGE 0 ML IV SCH (09:00)
[2021-04-15] MEDS ORDERED: PNEUMOCOCCAL Polysaccharide Vaccine 25mcg/0.5mL vial/Syr IM ONE (09:00)
[2021-04-15] MEDS: INSULIN ASPART PER UNIT SC SCH ×4 (09:13→20:17)
--- NOTE | 2021-04-15 11:59 | Nephrology Consultation ---
Date of Consultation April 15, 2021 Assessment & Plan (1) ESRD (end stage renal disease) on dialysis: plan next HD tomorrow per OP routine -daily bmp while in house -needs EMLA cream for arm about 1 hr before HD tx - may need nursing assistance to do this; so ordered -added 1.2L FR (2) Anemia of chronic disease: w/u per primary service; will use maximal ARLETTE on dialysis -transferrin sat ordered for am labs; transferrin pending; added Fe for am labs History of Present Illness Reason for Consultation: ESRD on HD Requesting Physician: Dr Reyna Attending Physician: Dodie Ku MD History of Present Illness 76-year-old female whom I am asked to evaluate for dialysis needs was admitted last evening for COPD exacerbation. Past medical history include insulin-dependent type 2 diabetes, hypertension, COPD and chronic respiratory failure on 3 L O2 at baseline, paroxysmal atrial fibrillation, chronic ambulatory dysfunction walker dependent. She dialyzes under my care at [facility] Tuesday and is adherent with treatment recommendations. Last full dialysis was yesterday. Her breathing has been worsening slowly over the past week with worsening exertional dyspnea and cough with clear sputum unrelieved by increased use of inhalers and nebulizer. Feels her breathing is somewhat better since last evening and defninitely better since arrival. Admission x-ray remarkable for possible bilateral pleural effusions which are small if present. Her presenting hgb is in mid 8s. Allergies Allergy/AdvReac Type Severity Reaction Status Date / Time No Known Allergies Allergy Verified 04/14/21 15:32 Home Medications Medication Instructions Recorded Confirmed Type diltiazem HCl 120 mg 120 mg PO DAILY 09/26/18 04/14/21 History capsule,extended release 24 hr ergocalciferol (vitamin D2) 1,250 50,000 unit PO MONTHLY 09/26/18 04/14/21 Histo ry mcg (50,000 unit) capsule fluticasone 250 mcg-salmeterol 50 2 inh INHALATION BID 09/26/18 04/14/21 History mcg/dose blistr powdr for inhalation (Advair Diskus) hydralazine 50 mg tablet 100 mg PO BID 09/26/18 04/14/21 History ipratropium 0.5 mg-albuterol 3 mg 3 ml INHALATION QID PRN 09/26/18 04/14/21 History (2.5 mg base)/3 mL nebulization soln vitamin B complex-vitamin C-folic 1 tab PO QAM 09/26/18 04/14/21 History acid 0.8 mg tablet (Arabella-Tika) fluticasone propionate 50 2 spray INTRANASAL HS 01/18/19 04/14/21 History mcg/actuation nasal spray,suspension sevelamer carbonate 800 mg tablet See Rx Instructions .ROUTE .COMPLEX 01/18/19 04/14/21 History umeclidinium 62.5 mcg/actuation 1 inh INHALATION QAM 01/18/19 04/14/21 History blister powder for inhalation (Incruse Ellipta) albuterol sulfate 90 mcg/actuation 2 puff INHALATION Q4H PRN 04/05/19 04/14/21 History aerosol inhaler acetaminophen 325 mg tablet 650 mg PO Q6H PRN 04/14/21 04/14/21 History (Tylenol) camphor-menthol 0.5 %-0.5 % lotion 1 applic TOPICAL DIRECTED PRN 04/14/21 04/14/21 History docusate sodium 100 mg capsule 100 mg PO BID PRN 04/14/21 04/14/21 History (Colace) epoetin gabriel 10,000 unit/mL 0 unit IV DIRECTED 04/14/21 04/14/21 History injection solution (Procrit) lidocaine-prilocaine 2.5 %-2.5 % 1 applic TOPICAL DIRECTED PRN 04/14/21 04/14/21 History topical cream lisinopril 40 mg tablet 40 mg PO DAILY 04/14/21 04/14/21 History loperamide 2 mg capsule (Imodium 2 mg PO QID PRN 04/14/21 04/14/21 History A-D) prednisolone acetate 1 % eye 1 drp OPHTHALMIC (EYE) DAILY 04/14/21 04/14/21 History drops,suspension valacyclovir 1 gram tablet 1,000 mg PO QAM 04/14/21 04/14/21 History Patient History Medical History A-fib "paroxysmal" - follows with [facility] cardiology Anemia of chronic disease AV fistula LUE COPD, moderate On 08/19/15 09:47 Mare Whyte wrote "2L O2 at home" Diastolic CHF DM type 2 (diabetes mellitus, type 2) IDDM Dyslipidemia ESRD (end stage renal disease) on dialysis follows with Dr. Reed; Hillary Corley, Luis Carlos - [facility] (since 02/2013) GI bleed hx History of colon polyps History of Helicobacter pylori infection HTN (hypertension) Moderate mitral regurgitation "moderate to severe on 12/2015 echo" On 01/13/16 15:17 Blanca Chan wrote "echo 06/2015 - calcified mitral valve, moderate MR" On home oxygen therapy 3 LPM cont Osteoarthritis Surgical History H/O colonoscopy "2005, hyperplastic polyps repeat in 10 years " H/O nasal polypectomy History of cataract surgery History of intestinal surgery History of surgery AVF creation S/P appendectomy "1971" S/P cholecystectomy "1971" S/P left oophorectomy "1981" S/P ASH (total abdominal hysterectomy) "For Fibroids " Family History Father Myocardial infarction, Onset Age: 64 Mother , 87 Alzheimer disease Other No family history of adverse response to anesthesia Social History Smoking Status: Current every day smoker Tobacco Type: Cigarettes Second Hand Exposure: No; Hx Alcohol Use: No Hx Substance Use: No Preferred Language: Macedonian Communication Ability: Effective Media Strategist 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 Beliefs That Will Affect Care: None marital status: / Current Living Situation: Alone current occupational status: retired Feels Safe at Home: Yes Assistive Devices: Glasses and Walker Review of Systems Review of Systems: All systems reviewed & are unremarkable except as noted in HPI & below Physical Exam Constitutional: well developed and well nourished; no acute distress Eyes: EOM intact bilaterally ENMT: Ears: no external ear abnormality Nose: no external nose abnormality Mouth: + dry oral mucous membranes Neck: no nuchal rigidity Respiratory: normal respiratory effort Auscultation: + diminished lung sounds and + rhonchi Cardiovascular: Rate/Rhythm: regular rate and regular rhythm Extremities: + AV fistula (+t/b); no edema Gastrointestinal (Abdomen): Inspection/Auscultation: normal bowel sounds Percussion/Palpation: abdomen soft; abdomen nontender Musculoskeletal: Extremities: strength 5/5 throughout Skin: no rashes, warm and dry Neurologic: louie, fluent speech, no tremor Psychiatric: fluent speech, no tremor, louie Results & Data ([facility]) Vital Signs (Past 12 Hours) Vital Signs Pulse Pulse Resp BP BP Pulse Ox 04/15/21 11:40 74 18 147/64 H 93 04/15/21 08:38 73 136/53 L 99 04/15/21 07:27 66 16 94 04/15/21 03:31 68 25 H 126/61 93 04/15/21 00:24 105/73 04/15/21 00:23 20 94 04/15/21 00:19 69 18 94 04/15/21 00:15 81 21 04/15/21 00:02 79 23 94 Laboratory Results 04/15/21 06:02 04/15/21 07:44 Diagnostic Findings Chest x-ray IMPRESSION: Suspicion of small bilateral pleural effusions. Follow-up PA and lateral radiographs would be helpful for further evaluation.
--- NOTE | 2021-04-15 13:43 | Hospitalist Progress Note ---
Date of Service April 15, 2021 Assessment & Plan (1) COPD exacerbation: (2) Chronic respiratory failure with hypoxia: Plan: 76 y/o F with PMH ESRD on HD on tue schedule, insulin dependent DM II, chronic anemia, HTN, diastolic dysfunction, PAF, COPD, chronic respiratory failure on 3L O2 presented to ER with c/o cough and SOB x 3-4 days. No leukocytosis. Negative COVID-19, influenza and RSV PCR. CXR: no infiltrate In ER afebrile, initially on 10L via nonrebreather and has been able to be titrated down Continue oxygen supplementation Continue steroid. Change to prednisone 40mg daily from tomorrow Continue doxycycline Continue nebs Continue Advair. Patient will like a cheaper alternative on discharge due to copay A-fib: History Paroxysmal atrial fibrillation Not on anticoagulation secondary to H/O GI bleed Atrial fibrillation in ER with episodes of tachycardia into 120's. Current HR in 70's Continue diltiazem Lopressor prn tachycardia Echo noted Acute on Chronic Anemia History of Anemia of chronic disease: Hgb: 8.6. Baseline Hgb in 10's Anemia labs, FOBT pending Monitor ESRD (end stage renal disease) on dialysis: On Tue schedule Nephro on board DM type 2 (diabetes mellitus, type 2): A1c: 5.7 in 05/2020 Now diet controlled Novolog sliding scale per protocol HTN (hypertension): Stable Continue losartan, hydralazine, diltiazem DVT Prophylaxis -Heparin SQ CPR, defibrillation ok, no intubation as per discussion with pt Follows with Dr Armando for routine care Admission and Anticipated Discharge Date Admission Date: April 14, 2021 Subjective Patient seen and examined. Reports cough, nonproductive. Still reports some shortness of breath. Currently at 4 L/min nasal oxygen. Reports she uses 3-3.5 liters at baseline at home. Denies any chest pain, fevers, chills, nausea vomiting Denies any abdominal pain, diarrhea, constipation, melena hematochezia Physical Exam Constitutional: + well hydrated; no acute distress Eyes: PERRL, conjunctivae normal, anicteric sclerae ENMT: external ear and nose normal, oropharynx normal Respiratory: On nasal cannula, diminished breath sounds Cardiovascular: Rate/Rhythm: regular rhythm and + irregularly irregular S1- S2 Gastrointestinal (Abdomen): normal bowel sounds, soft, nontender, no hepatosplenomegaly Musculoskeletal: no cyanosis or clubbing, extremities motor strength 5/5 Neurologic: PERRL, EOMI, accommodation nl, no face palsy, no dysarthria Psychiatric: A+Ox3, euthymic affect Results & Data Results & Data ([facility]) Vital Signs (Past 12 Hours) Vital Signs Pulse Pulse Resp BP BP Pulse Ox 04/15/21 12:43 74 20 96 04/15/21 11:40 74 18 147/64 H 93 04/15/21 08:38 73 136/53 L 99 04/15/21 07:27 66 16 94 04/15/21 03:31 68 25 H 126/61 93 Laboratory Results Abnormal lab results 04/14/21 04/14/21 04/15/21 Range/Units 15:03 21:12 00:20 WBC (4.8-10.8) K/uL RBC (4.2-5.4) M/uL Hgb (12.0-16.0) g/dL Hct (37-47) % MCV (80-100) fL MCH (25-34) pg MCHC (32-36) g/dL RDW Std Deviation (36.4-46.3) fL MPV (7.4-10.4) fL Creatinine (0.6-1.2) mg/dl BUN/Creatinine Ratio (10-20) Glucose (70-99(Fasting)) mg/dl POC Glucose 177 H 177 H (70-99) mg/dl Transferrin 149 L (200-360) mg/dl Ferritin 577.9 H (8-388) ng/ml 04/15/21 04/15/21 04/15/21 Range/Units 06:02 06:02 08:20 WBC 3.65 L (4.8-10.8) K/uL RBC 2.17 L (4.2-5.4) M/uL Hgb 8.4 L (12.0-16.0) g/dL Hct 26.4 L (37-47) % MCV 121.7 H (80-100) fL MCH 38.7 H (25-34) pg MCHC 31.8 L (32-36) g/dL RDW Std Deviation 62.5 H (36.4-46.3) fL MPV 10.5 H (7.4-10.4) fL Creatinine 5.22 H* D (0.6-1.2) mg/dl BUN/Creatinine Ratio 3.4 L (10-20) Glucose 228 H (70-99(Fasting)) mg/dl POC Glucose 173 H (70-99) mg/dl Transferrin (200-360) mg/dl Ferritin (8-388) ng/ml 04/15/21 Range/Units 12:26 WBC (4.8-10.8) K/uL RBC (4.2-5.4) M/uL Hgb (12.0-16.0) g/dL Hct (37-47) % MCV (80-100) fL MCH (25-34) pg MCHC (32-36) g/dL RDW Std Deviation (36.4-46.3) fL MPV (7.4-10.4) fL Creatinine (0.6-1.2) mg/dl BUN/Creatinine Ratio (10-20) Glucose (70-99(Fasting)) mg/dl POC Glucose 148 H (70-99) mg/dl Transferrin (200-360) mg/dl Ferritin (8-388) ng/ml
[2021-04-15] MEDS ORDERED: LIDOCAINE/PRILOCAINE 2.5% EA CRM EXT PRN (18:00)
[2021-04-15] MEDS ORDERED: LIDOCAINE/PRILOCAINE 2.5% EA CRM EXT SCH (18:30)
[2021-04-15] MEDS: FLUTICASONE PROPIONATE NA SPR 16 GM BTL NAE SCH (20:11)
[2021-04-16] MEDS: IPRATROPIUM BROMIDE NEB SOLN 0.02% 2.5 ML VIAL INH SCH ×5 (01:06→23:57)
[2021-04-16] MEDS: LEVALBUTEROL 1.25MG/0.5ML NEB INH SCH ×5 (01:06→23:57)
[2021-04-16] MEDS: DOXYCYCLINE HYCLATE 100 MG CAP PO SCH ×2 (06:14→16:44)
[2021-04-16 07:17] LABS: Hematocrit (blood only) 25.6 % (37-47); Hemoglobin 8.1 g/dL (12.0-16.0); Mean Corpuscular Hemoglobin 38.6 pg (25-34); Mean Corpuscular Hgb Conc 31.6 g/dL (32-36); Mean Corpuscular Volume 121.9 fL (80-100); Mean Platelet Volume 11.1 fL (7.4-10.4); Platelet Count 166 K/uL (130-400); RDW Coefficient of Variation 14.8 % (11.5-14.5); RDW Standard Deviation 64.9 fL (36.4-46.3); White Blood Count 6.03 K/uL (4.8-10.8)
[2021-04-16] MEDS ORDERED: HEPARIN SOD (PORCINE) 1000 UNIT/ML IV ONE (07:35)
[2021-04-16] MEDS ORDERED: SODIUM CHLORIDE 0.9% 1000ML 1,000 ML IV PRN (07:35)
[2021-04-16 07:38] LABS: BUN Creatinine Ratio 5.7 (10-20); Calcium 8.8 mg/dl (8.5-10.1); Creatinine Clr Calc Pharmacy 7.2 ml/min; Est GFR (African American) 5.6 ml/min; Est GFR (Non-African American) 4.8 ml/min
[2021-04-16] MEDS: FLUTICASONE/VILANTEROL 100/25MCG 14 PUFFS/INHALER INH SCH (08:06)
[2021-04-16] MEDS: HEPARIN SOD 5,000 UNIT/0.5 ML VIAL SQ SCH ×2 (08:07→20:17)
[2021-04-16] MEDS: INSULIN ASPART PER UNIT SC SCH ×4 (08:10→20:17)
[2021-04-16] MEDS ORDERED: EPOETIN ALFA 20,000 UNITS/ML VIAL IV SCH (08:30)
[2021-04-16] MEDS ORDERED: IRON SUCROSE 100 MG in SYRINGE 0 ML IV ONE (08:30)
[2021-04-16] MEDS: HEPARIN SOD (PORCINE) 1000 UNIT/ML IV SCH ×3 (10:44→11:08)
--- NOTE | 2021-04-16 11:55 | Hospitalist Progress Note ---
Date of Service April 16, 2021 Assessment & Plan (1) COPD exacerbation: (2) Chronic respiratory failure with hypoxia: Plan: Acute on chronic hypoxic respiratory failure 76 y/o F with PMH ESRD on HD on tue schedule, insulin dependent DM II, chronic anemia, HTN, diastolic dysfunction, PAF, COPD, chronic respiratory failure on 3L O2 presented to ER with c/o cough and SOB x 3-4 days. No leukocytosis. Negative COVID-19, influenza and RSV PCR. CXR: no infiltrate In ER afebrile, initially on 10L via nonrebreather and has been able to be titrated down Continue oxygen supplementation Continue prednisone and doxycycline Continue nebs Continue Advair. Patient will like a cheaper alternative on discharge due to copay A-fib: History Paroxysmal atrial fibrillation Not on anticoagulation secondary to H/O GI bleed Atrial fibrillation in ER with episodes of tachycardia into 120's. Current HR in 70's Continue diltiazem Lopressor prn tachycardia Echo noted. Similar to prior Acute on Chronic Anemia History of Anemia of chronic disease: Hgb: 8.1. Baseline Hgb in 10's Monitor ESRD (end stage renal disease) on dialysis: On Tue schedule Nephro on board DM type 2 (diabetes mellitus, type 2): A1c: 5.7 in 05/2020 Now diet controlled Novolog sliding scale per protocol HTN (hypertension): Stable Continue losartan, hydralazine, diltiazem DVT Prophylaxis -Heparin SQ CPR, defibrillation ok, no intubation as per discussion with pt Follows with Dr Armando for routine care Possible dc tomorrow Admission and Anticipated Discharge Date Admission Date: April 14, 2021 Subjective Patient seen and examined. Reports cough, nonproductive and shortness of breath are improving Currently at 3L/min nasal oxygen which is her baseline Denies any chest pain, fevers, chills, nausea vomiting Denies any abdominal pain, diarrhea, constipation, melena hematochezia Currently getting HD Physical Exam Constitutional: + well hydrated; no acute distress Eyes: PERRL, conjunctivae normal, anicteric sclerae ENMT: external ear and nose normal, oropharynx normal Respiratory: On 3l/min NC, diminished breath sounds Cardiovascular: Rate/Rhythm: regular rhythm and + irregularly irregular S1 S2 Gastrointestinal (Abdomen): normal bowel sounds, soft, nontender, no hepatosplenomegaly Musculoskeletal: no cyanosis or clubbing, extremities motor strength 5/5 Neurologic: PERRL, EOMI, accommodation nl, no face palsy, no dysarthria Psychiatric: A+Ox3, euthymic affect Results & Data Results & Data ([facility]) Vital Signs (Past 12 Hours) Vital Signs Temp Pulse Pulse Resp BP BP Pulse Ox 04/16/21 11:30 60 143/60 H 04/16/21 11:00 58 L 123/49 L 04/16/21 10:57 59 L 04/16/21 10:30 62 141/59 H 04/16/21 10:00 61 146/65 H 04/16/21 09:12 60 158/64 H 04/16/21 09:00 36.5 C 54 L 04/16/21 07:17 69 18 97 04/16/21 06:58 36.7 C 66 16 128/57 L 97 04/16/21 03:45 36.7 C 71 18 120/61 94 04/16/21 01:10 67 16 98 Laboratory Results Abnormal lab results 04/15/21 04/15/21 04/16/21 Range/Units 17:23 20:09 06:16 RBC 2.10 L (4.2-5.4) M/uL Hgb 8.1 L (12.0-16.0) g/dL Hct 25.6 L (37-47) % MCV 121.9 H (80-100) fL MCH 38.6 H (25-34) pg MCHC 31.6 L (32-36) g/dL RDW Std Deviation 64.9 H (36.4-46.3) fL RDW Coeff of Fior 14.8 H (11.5-14.5) % MPV 11.1 H (7.4-10.4) fL BUN (6-23) mg/dl Creatinine (0.6-1.2) mg/dl BUN/Creatinine Ratio (10-20) Glucose (70-99(Fasting)) mg/dl POC Glucose 213 H 136 H (70-99) mg/dl 04/16/21 04/16/21 Range/Units 06:16 07:10 RBC (4.2-5.4) M/uL Hgb (12.0-16.0) g/dL Hct (37-47) % MCV (80-100) fL MCH (25-34) pg MCHC (32-36) g/dL RDW Std Deviation (36.4-46.3) fL RDW Coeff of Fior (11.5-14.5) % MPV (7.4-10.4) fL BUN 43 H D (6-23) mg/dl Creatinine 7.58 H* D (0.6-1.2) mg/dl BUN/Creatinine Ratio 5.7 L (10-20) Glucose 108 H (70-99(Fasting)) mg/dl POC Glucose 114 H (70-99) mg/dl
[2021-04-16] MEDS: valACYclovir HCL 500 MG TABLET PO SCH (14:40)
[2021-04-16] MEDS: hydrALAZINE TAB 50 MG TAB PO SCH ×2 (14:40→20:18)
[2021-04-16] MEDS: lisinopril 40 MG TAB PO SCH (14:40)
[2021-04-16] MEDS: SEVELAMER HCL 800 MG TABLET PO SCH ×3 (14:41→16:44)
[2021-04-16] MEDS: dilTIAZem HCL 120 MG CAPCR PO SCH (14:41)
[2021-04-16] MEDS: prednisoLONE acetate 1% OP SUSP 5 ML BTL OPL SCH (14:42)
[2021-04-16] MEDS: NICOTINE 7 MG/24 HR TDSY TD SCH (14:43)
[2021-04-16] MEDS: predniSONE 20 MG TAB PO SCH (14:44)
--- NOTE | 2021-04-16 17:51 | Nephrology Progress Note ---
Date of Service April 16, 2021 Assessment & Plan (1) ESRD (end stage renal disease) on dialysis: Plan: tolerated HD w/o issues today. next HD on 04/18 as IP or OP -daily bmp while in house -needs EMLA cream for arm about 1 hr before HD tx - may need nursing assistance to do this; so ordered -cont 1.2L FR (2) Anemia of chronic disease: Plan: w/u per primary service; will use maximal ARLETTE on dialysis -transferrin sat to be calculated > ordered TIBC Admission and Anticipated Discharge Date Admission Date: April 14, 2021 Subjective no acute interval clinical events. breathing continues to be stable/slightly improved. tolerated HD today with 1.8L UF no issues Review of Systems Review of Systems: All systems reviewed & are unremarkable except as noted in Subjective Physical Exam Constitutional: well developed and well nourished; no acute distress Eyes: EOM intact bilaterally ENMT: Ears: no external ear abnormality Nose: no external nose abnormality Mouth: + dry oral mucous membranes Neck: no nuchal rigidity Respiratory: normal respiratory effort Auscultation: + diminished lung sounds and + crackles (one base; better air mvt) Cardiovascular: Rate/Rhythm: regular rate and regular rhythm Extremities: + AV fistula (+t/b); no edema Gastrointestinal (Abdomen): Inspection/Auscultation: normal bowel sounds Percussion/Palpation: abdomen soft; abdomen nontender Musculoskeletal: Extremities: strength 5/5 throughout Skin: no rashes, warm and dry Neurologic: louie, fluent speech, no tremor Psychiatric: Orientation: alert and oriented x 3 Results & Data ([facility]) Vital Signs (Past 12 Hours) Vital Signs Temp Pulse Pulse Pulse Resp BP BP 04/16/21 15:44 36.4 C L 100 H 15 128/71 04/16/21 13:25 36.9 C 80 139/71 04/16/21 13:00 97 H 149/82 H 04/16/21 12:30 90 145/73 H 04/16/21 12:00 59 L 141/72 H 04/16/21 11:30 60 143/60 H 04/16/21 11:00 58 L 123/49 L 04/16/21 10:57 59 L 04/16/21 10:30 62 141/59 H 04/16/21 10:00 61 146/65 H 04/16/21 09:12 60 158/64 H 04/16/21 09:00 36.5 C 54 L 04/16/21 07:17 69 18 04/16/21 06:58 36.7 C 66 16 128/57 L Pulse Ox 04/16/21 15:44 04/16/21 13:25 04/16/21 13:00 04/16/21 12:30 04/16/21 12:00 04/16/21 11:30 04/16/21 11:00 04/16/21 10:57 04/16/21 10:30 04/16/21 10:00 04/16/21 09:12 04/16/21 09:00 04/16/21 07:17 97 04/16/21 06:58 97 Laboratory Results 04/16/21 06:16 04/16/21 06:16
[2021-04-16] MEDS: FLUTICASONE PROPIONATE NA SPR 16 GM BTL NAE SCH (20:17)
[2021-04-17] MEDS: IPRATROPIUM BROMIDE NEB SOLN 0.02% 2.5 ML VIAL INH SCH ×2 (07:14→12:17)
[2021-04-17] MEDS: LEVALBUTEROL 1.25MG/0.5ML NEB INH SCH ×2 (07:14→12:17)
[2021-04-17] MEDS: hydrALAZINE TAB 50 MG TAB PO SCH (07:47)
[2021-04-17] MEDS: HEPARIN SOD 5,000 UNIT/0.5 ML VIAL SQ SCH (07:48)
[2021-04-17] MEDS: DOXYCYCLINE HYCLATE 100 MG CAP PO SCH (07:48)
[2021-04-17] MEDS: SEVELAMER HCL 800 MG TABLET PO SCH ×2 (07:48→11:56)
[2021-04-17] MEDS: valACYclovir HCL 500 MG TABLET PO SCH (07:48)
[2021-04-17] MEDS: predniSONE 20 MG TAB PO SCH (07:48)
[2021-04-17] MEDS: lisinopril 40 MG TAB PO SCH (07:49)
[2021-04-17] MEDS: dilTIAZem HCL 120 MG CAPCR PO SCH (07:49)
[2021-04-17] MEDS: FLUTICASONE/VILANTEROL 100/25MCG 14 PUFFS/INHALER INH SCH (07:49)
[2021-04-17] MEDS: NICOTINE 7 MG/24 HR TDSY TD SCH (07:50)
[2021-04-17] MEDS: prednisoLONE acetate 1% OP SUSP 5 ML BTL OPL SCH (07:50)
[2021-04-17] MEDS: INSULIN ASPART PER UNIT SC SCH ×2 (08:18→11:56)
[2021-04-17 08:26] LABS: Hematocrit (blood only) 31.6 % (37-47); Hemoglobin 9.9 g/dL (12.0-16.0); Mean Corpuscular Hemoglobin 38.7 pg (25-34); Mean Corpuscular Hgb Conc 31.3 g/dL (32-36); Mean Corpuscular Volume 123.4 fL (80-100); Mean Platelet Volume 10.9 fL (7.4-10.4); Platelet Count 188 K/uL (130-400); RDW Coefficient of Variation 14.9 % (11.5-14.5); RDW Standard Deviation 66.1 fL (36.4-46.3); Red Blood Count 2.56 M/uL (4.2-5.4); White Blood Count 6.61 K/uL (4.8-10.8)
[2021-04-17 08:55] LABS: BUN Creatinine Ratio 5.3 (10-20); Calcium 8.6 mg/dl (8.5-10.1); Creatinine Clr Calc Pharmacy 9.2 ml/min; Est GFR (African American) 7.6 ml/min; Est GFR (Non-African American) 6.5 ml/min; Potassium 3.9 mmol/L (3.5-5.1)
--- NOTE | 2021-04-17 10:10 | Discharge Summary ---
Date of Service April 17, 2021 Admission HPI Per Admitting Provider Patient is 76 y/o F with PMH ESRD on HD on tue, insulin dependent DM II, chronic anemia, HTN, diastolic dysfunction, PAF, COPD, chronic respiratory failure on 3L O2 presented to ER with c/o cough and SOB x 3-4 days. Patient reports increased SOB with exertion and has cough with clear productive sputum in morning and nonproductive during the day. Has been using duonebs at home four times a day without much improvement. Twin at home in to see patient and found to be hypoxic on her 3L oxygen with standing and had episodes HR 70s-120s. Sleeps with head raised at baseline. Patient states that she feels "wiped out" the past couple of days. Denies fever/chills, diaphoresis, N/V/D/C, BETANCOURT, dizziness, syncope, vision changes, neck pain, CP, orthopnea, palpitations, sore throat, choking, otalgia, rhinorrhea, abdominal pain, paresthesias, extremity weakness, extremity edema, rashes, urinary symptoms, melena, hematochezia. Admission Exam Per Admitting Provider General: no acute distress, WDWN Head: normocephalic, atraumatic Eyes: PERRL, EOM's intact, conjunctiva non-injected, anicteric ENT: normal inspection external ears, nose, mucous membranes moist Neck: supple, trachea midline Lungs: no respiratory distress on current 3.5L oxymask with sat 98%, diminished breath sounds without wheezing/rhonchi/rales CV: irregularly irregular, rate 58-76, +systolic murmur, no pretibial edema Abd: normal BS, soft, non-tender Ext: no cyanosis, no calf tenderness Neuro: A&O x 3, no focal deficits noted, normal affect Skin: warm, dry Principal Diagnosis Acute on chronic hypoxic respiratory failure COPD exacerbation Discharge Exam Constitutional + well hydrated; no acute distress Eyes PERRL, conjunctivae normal, anicteric sclerae ENMT external ear and nose normal, oropharynx normal Respiratory On nasal cannula, diminished breath sounds Cardiovascular Rate/Rhythm: regular rhythm and + irregularly irregular S1 S2 Gastrointestinal (Abdomen) normal bowel sounds, soft, nontender, no hepatosplenomegaly Musculoskeletal no cyanosis or clubbing, extremities motor strength 5/5 Neurologic PERRL, EOMI, accommodation nl, no face palsy, no dysarthria Psychiatric A+Ox3, euthymic affect Discharge Data Allergies Allergy/AdvReac Type Severity Reaction Status Date / Time No Known Allergies Allergy Verified 04/14/21 15:32 Consultations 04/14/21 17:24 ED Decision to Admit Stat 04/15/21 09:00 Consult Nephrology Routine Hospital Course (1) COPD exacerbation: (2) Chronic respiratory failure with hypoxia: Acute on chronic hypoxic respiratory failure 76 y/o F with PMH ESRD on HD on tue, insulin dependent DM II, chronic anemia, HTN, diastolic dysfunction, PAF, COPD, chronic respiratory failure on 3L O2 presented to ER with c/o cough and SOB x 3-4 days. No leukocytosis. Negative COVID-19, influenza and RSV PCR. CXR: no infiltrate In ER afebrile, initially on 10L via nonrebreather and has been able to be titrated down Was started on steroid therapy and nebs Symptoms improved Oxygen back to baseline Patient reports that advair's copay is too expensive for her. Advair changed to Symbicort. 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 Currently controlled Continue diltiazem Echo noted. Similar to prior Acute on Chronic Anemia History of Anemia of chronic disease: Hgb: 8.1. Baseline Hgb in 10's ESRD (end stage renal disease) on dialysis: On Tue schedule DM type 2 (diabetes mellitus, type 2): A1c: 5.7 in 05/2020 Now diet controlled HTN (hypertension): Stable Continue losartan, hydralazine, diltiazem Total Time Total Time Spent Total Time Spent (In Minutes): 40 Total Time Includes: Examination of the Patient, Discharge Planning, Medication Reconciliation and Communication With Other Providers Discharge Plan Discharge Items Patient Disposition: Home - Self-Care Reason For Visit: Shortness of breath Discharge Diagnosis: Acute on chronic hypoxic respiratory failure COPD exacerbation Activity: Resume your previous activity Non-emergency contact: Primary Care Provider Call non-emergency contact if: you have any medication questions and your symptoms worsen Follow-up/Referrals: [facility] [Other] (Date & Time 04/20/2021 9:30 AM Provider Elly Honeycutt RN Department [facility], [facility] Date & Time 04/28/2021 3:00 PM Provider TAYLOR Kramer Department [facility], [facility] ) Noam Armando MD [Primary Care Provider] - (Date & Time 04/22/2021 11:20 AM Provider Antoni Navas MD Department [facility] ) Diet: Heart Healthy Addtl Attending Provider Instructions: Mrs Velasco You came to the hospital complaining of shortness of breath. You required more oxygen than your baseline. You were managed for COPD exacerbation. Your symptoms improved. You are being discharged home. You are being discharged on one more day of prednisone. Your advair was changed to symbicort inhaler due to cost limitations. Please ensure you rinse mouth as we discussed after each use. Please ensure follow up with your Primary Care doctor and Chemical Tank Worker (Lung doctor) It was a pleasure taking care of you. Pending Studies at Discharge: No Stand-Alone Forms: My [facility], Smoking Cessation Medications and DC Order Prescriptions: New budesonide-formoterol [Symbicort] 160-4.5 mcg/actuation HFA aerosol inhaler 2 inh inhalation BID Qty: 10.2 RF: 0 prednisone 20 mg Tablet 40 mg PO QAM Qty: 2 RF: 0 Continued ipratropium-albuterol 0.5 mg-3 mg(2.5 mg base)/3 mL Solution For Nebulization 3 ml INHALATION QID PRN (Reason: Shortness Of Breath) RF: 0 diltiazem HCl 120 mg capsule,extended release 24hr 120 mg PO DAILY RF: 0 Arabella-Tika 0.8 mg tablet 1 tab PO QAM RF: 0 hydralazine 50 mg tablet 100 mg PO BID RF: 0 ergocalciferol (vitamin D2) 50,000 unit capsule 50,000 unit PO MONTHLY RF: 0 fluticasone propionate 50 mcg/actuation [place],Suspension 2 spray INTRANASAL HS RF: 0 sevelamer carbonate 800 mg tablet See Rx Instructions .ROUTE .COMPLEX RF: 0 Incruse Ellipta 62.5 mcg/actuation Blister With Device 1 inh INHALATION QAM RF: 0 albuterol sulfate 90 mcg/actuation Hfa Aerosol Inhaler 2 puff INHALATION Q4H PRN (Reason: Shortness Of Breath Or Wheezing) RF: 0 acetaminophen [Tylenol] 325 mg Tablet 650 mg PO Q6H PRN (Reason: PAIN/FEVER) RF: 0 loperamide [Imodium A-D] 2 mg Capsule 2 mg PO QID PRN (Reason: Diarrhea) RF: 0 lidocaine-prilocaine 2.5-2.5 % Cream 1 applic topical DIRECTED PRN (Reason: PRIOR TO DIALYSIS) RF: 0 prednisolone acetate 1 % Drops,Suspension 1 drp OPHTHALMIC (EYE) DAILY RF: 0 docusate sodium [Colace] 100 mg Capsule 100 mg PO BID PRN (Reason: Constipation) RF: 0 camphor-menthol 0.5-0.5 % Lotion 1 applic TOPICAL DIRECTED PRN (Reason: Itching) RF: 0 lisinopril 40 mg Tablet 40 mg PO DAILY RF: 0 Procrit 10,000 unit/mL Solution 0 unit IV DIRECTED RF: 0 valacyclovir 1 gram tablet 1,000 mg PO QAM RF: 0 Discontinued fluticasone propion-salmeterol [Advair Diskus] 250-50 mcg/dose blister with device 2 inh inhalation BID RF: 0 Discharge Orders: Discharge Order (Routine); Ordered 04/17/21 Ordered By: Dodie Ku Admission Data Admit Date/Time: 04/14/21 17:29 Attending Provider: Dodie Ku I. Admit Provider: Jono Reyna Primary Care Provider: Noam Armando Other Providers: Jessica Reed ; Jono Reyna Other Interventions: Discharge Summary Assessment (RN) Last Done: 04/17/21 11:29
[2021-04-17 11:47] VITALS: BP 142/62; TEMP 97.9
[2021-04-17 12:20] VITALS: PULSE 64; O2SAT 96
[2021-04-18] MEDS ORDERED: NEPHROCAPS PO SCH (09:00)
== END 2021-04-17 14:19 | disposition home or self-care (01) | DRG 190 ==
LOC: ED 14:22 → EDINP 17:29 → SUATTDRO 17:29 → EDINP 19:39 → 2S 04-15 17:03
DX: J96.21 Acute and chronic respiratory failure with hypoxia; N18.6 End stage renal disease; J44.1 Chronic obstructive pulmonary disease with (acute) exacerbation; D63.8 Anemia in other chronic diseases classified elsewhere; Z99.2 Dependence on renal dialysis; E11.22 Type 2 diabetes mellitus with diabetic chronic kidney disease; F17.210 Nicotine dependence, cigarettes, uncomplicated; Z99.81 Dependence on supplemental oxygen; I13.2 Hypertensive heart and chronic kidney disease with heart failure and with stage 5 chronic kidney disease, or end stage renal disease; Z79.4 Long term (current) use of insulin; I48.0 Paroxysmal atrial fibrillation; I50.32 Chronic diastolic (congestive) heart failure; I34.0 Nonrheumatic mitral (valve) insufficiency

== ENCOUNTER 2021-04-28 16:56 | Inpatient (IN) ==
[2021-04-28] MEDS ORDERED: ACETAMINOPHEN 1000 MG/100 ML IV IV STA (17:58)
[2021-04-28] MEDS ORDERED: ALBUT/IPRATROP 3MG/0.5MG NEB 3 ML VIAL NEB STA (17:58)
[2021-04-28] MEDS ORDERED: CEFEPIME 2,000 MG/20 ML VIAL IV STA (18:01)
--- NOTE | 2021-04-28 18:07 | Emergency Department Note ---
Impression & Plan SOB (shortness of breath), COPD exacerbation, Acute bronchitis, Cough, Anemia ED Provider Note NAME: VALERIA URIAS AGE: 76 SEX: F : 1945 ARRIVES VIA: Ambulance INFORMANT: [Patient] ED PROVIDER(S): [Luigi Jacobson MD] CHIEF COMPLAINT: Shortness of breath HISTORY OF PRESENT ILLNESS: The patient is a 76-year-old female presents to the ER with shortness of breath and a cough for a few days. Today, she was quite weak and tachycardic after dialysis and was referred in by her home health agency. The patient presents by ambulance. Patient states that she has been turning up her oxygen a bit to help with her breathing. She typically wears her on 3 L of oxygen. She had used her nebulizer emergently last evening because she was short of breath. The shortnes s of breath is mainly with exertion. She has had some chills but no documented fever. Her cough is productive. No sore throat or stuffy nose. No vomiting or diarrhea. The patient states that she is vaccinated for COVID-19 x3, she has had her influenza vaccine as well. REVIEW OF SYSTEMS: See HPI for pertinent positives and negatives. A total of ten systems were r eviewed and were otherwise negative. PMHx/PSHx: See Below SOCIAL HISTORY: See Below. PHYSICAL EXAM: GENERAL: Patient is in no acute distress. HEENT: No acute trauma, normocephalic atraumatic, mucous membranes moist, no nasal congestion, no scleral icterus. NECK: No stridor, no adenopathy, no meningismus, trachea is midline. LUNGS: Crackles heard at both bases especially on the right, no wheezing. No obvious respiratory distress. HEART: Without murmurs gallops or rubs, regular rate and rhythm. ABDOMEN: Soft, nontender, bowel sounds positive, no hernias, no peritonitis. EXTREMITIES: No cyanosis or edema, full range of motion of all the joints without pain or difficulty, no signs for acute trauma. NEUROLOGIC: Oriented x 3, no acute motor or sensory deficits, no focal weakness. SKIN: No rash, no jaundice, no diaphoresis. DIFFERENTIAL DIAGNOSIS: Reactive airway disease, pneumonia, COVID-19, influenza, pneumothorax, COPD, CHF, infection, cardiac ischemia, pulmonary embolism, bronchitis, musculoskeletal, gastrointestinal, as well as other pathologies. EMERGENCY DEPARTMENT COURSE/PROCEDURES: ECG: Indication was shortness of breath. The ECG shows atrial fibrillation with a rapid rate at 104. There is no ST elevation, there are no PVCs. The QTc is 462. Continuous Cardiac Monitoring: An order was placed for continuous cardiac monitoring. The monitor shows a rate of 112 with rapid atrial fibrillation. MEDICAL DECISION MAKING: There is no leukocytosis. The patient is anemic however, this is baseline looking back at previous testing. There is a normal platelet count. No coagulopathy. ABG does show a lower CO2 level, the PCO2 was normal. Renal panel shows a high creatinine, this is consistent with her dialysis need. No electrolyte abnormality in need of emergent correction. Lactic acid level was not elevated making severe sepsis less likely. No concerning liver enzyme elevation. ECG showed atrial fibrillation with a rapid rate, no acute ischemic change. Cardiac enzyme testing x1 is not consistent with acute cardiac injury. Procalcitonin level was not elevated. Influenza testing was negative. Covid testing was negative. Chest film showed congestion at both bases consistent with atelectasis, pneumonia or CHF. On exam, the patient was tachypneic. There were crackles at both lung bases. She was saturating well on supplemental oxygen. The patient received IV Solu-Medrol, a DuoNeb, IV cefepime, IV Tylenol. With this medication regimen/care, the patient's heart rate decreased, her tachypnea resolved. The patient likely has an acute bronchitis with a flare of her COPD. I do think a hospital stay is warranted, especially, given her underlying history. I did speak with the patient, I talked to case management. The on-call hospitalist was consulted. Past Med/Surg History Medical History A-fib "paroxysmal" - follows with [facility] cardiology Anemia of chronic disease AV fistula LUE COPD, moderate On 08/19/15 09:47 Mare Whyte wrote "2L O2 at home" Diastolic CHF DM type 2 (diabetes mellitus, type 2) IDDM Dyslipidemia ESRD (end stage renal disease) on dialysis follows with Dr. Reed; Hillary Corley, Luis Carlos - [facility] (since 02/2013) GI bleed hx History of colon polyps History of Helicobacter pylori infection HTN (hypertension) Moderate mitral regurgitation "moderate to severe on 12/2015 echo" On 01/13/16 15:17 Blanca Chan wrote "echo 06/2015 - calcified mitral valve, moderate MR" On home oxygen therapy 3 LPM cont Osteoarthritis Surgical History H/O colonoscopy "2005, hyperplastic polyps repeat in 10 years " H/O nasal polypectomy History of cataract surgery History of intestinal surgery History of surgery AVF creation S/P appendectomy "1971" S/P cholecystectomy "1971" S/P left oophorectomy "1981" S/P ASH (total abdominal hysterectomy) "For Fibroids " Family History Father Myocardial infarction, Onset Age: 64 Mother , 87 Alzheimer disease Other No family history of adverse response to anesthesia Social History Smoking Status: Current every day smoker Tobacco Type: Cigarettes Cigarettes Per Day: 3; Second Hand Exposure: No; Do You Dip or Chew Tobacco: No; Hx Alcohol Use: No Hx Substance Use: No Preferred Language: Barbadian Communication Ability: Effective Bread Molder 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 Beliefs That Will Affect Care: None marital status: / Current Living Situation: Alone current occupational status: retired Feels Safe at Home: Yes Safety Concerns: Feels Safe At This Time Assistive Devices: Glasses, Oxygen - Continuous and Walker Allergies Allergies Allergy/AdvReac Type Severity Reaction Status Date / Time No Known Allergies Allergy Verified 04/14/21 15:32 Home Meds Home Medications Medication Instructions Recorded Confirmed diltiazem HCl 120 mg 120 mg PO DAILY 09/26/18 04/28/21 capsule,extended release 24 hr ergocalciferol (vitamin D2) 1,250 50,000 unit PO MONTHLY 09/26/18 04/28/21 mcg (50,000 unit) capsule hydralazine 50 mg tablet 100 mg PO BID 09/26/18 04/28/21 ipratropium 0.5 mg-albuterol 3 mg 3 ml INHALATION QID PRN 09/26/18 04/28/21 (2.5 mg base)/3 mL nebulization soln vitamin B complex-vitamin C-folic 1 tab PO QAM 09/26/18 04/28/21 acid 0.8 mg tablet (Arabella-Tika) fluticasone propionate 50 2 spray INTRANASAL HS 01/18/19 04/28/21 mcg/actuation nasal spray,suspension sevelamer carbonate 800 mg tablet See Rx Instructions .ROUTE .COMPLEX 01/18/19 04/28/21 umeclidinium 62.5 mcg/actuation 1 inh INHALATION QAM 01/18/19 04/28/21 blister powder for inhalation (Incruse Ellipta) albuterol sulfate 90 mcg/actuation 2 puff INHALATION Q4H PRN 04/05/19 04/28/21 aerosol inhaler acetaminophen 325 mg tablet 650 mg PO Q6H PRN 04/14/21 04/28/21 (Tylenol) camphor-menthol 0.5 %-0.5 % lotion 1 applic TOPICAL DIRECTED PRN 04/14/21 04/28/21 docusate sodium 100 mg capsule 100 mg PO BID PRN 04/14/21 04/28/21 (Colace) epoetin gabriel 10,000 unit/mL 0 unit IV DIRECTED 04/14/21 04/28/21 injection solution (Procrit) lidocaine-prilocaine 2.5 %-2.5 % 1 applic TOPICAL DIRECTED PRN 04/14/21 04/28/21 topical cream lisinopril 40 mg tablet 40 mg PO DAILY 04/14/21 04/28/21 loperamide 2 mg capsule (Imodium 2 mg PO QID PRN 04/14/21 04/28/21 A-D) prednisolone acetate 1 % eye 1 drp OPL DAILY 04/14/21 04/28/21 drops,suspension valacyclovir 1 gram tablet 1,000 mg PO QAM 04/14/21 04/28/21 Previous Rx's Medication Instructions Recorded budesonide-formoterol HFA 160 2 inh INHALATION BID #10.2 g 04/17/21 mcg-4.5 mcg/actuation aerosol inhaler (Symbicort) Results & Data (ED) Vital Signs Vital Signs - 24 hr 04/28/21 17:14 04/28/21 17:18 04/28/21 17:20 Temperature 37.7 C H Temperature Source Oral Pulse Rate 98 H 115 H 104 H Pulse Rate [Apical] Pulse Rate from SpO2 Sensor 112 H 113 H Respiratory Rate 22 20 21 Respiratory Effort / Characteristics Spontaneous Respiratory Depth Normal Respiratory Pattern Blood Pressure 133/76 Blood Pressure [Right Arm] Blood Pressure Mean 95 Blood Pressure Mean [Right Arm] Blood Pressure Position [Right Arm] Pulse Oximetry 99 97 99 Oxygen Delivery Method Nasal Cannula Oxygen Flow Rate 3 3 3 Sepsis Recent Fever Within 48 Hours No Sepsis New/Unexplained Change in Mental Status N/A Sepsis Action Taken by Nursing No Action Required 04/28/21 17:30 04/28/21 17:37 04/28/21 17:40 Temperature Temperature Source Pulse Rate 112 H 103 H Pulse Rate [Apical] 92 H Pulse Rate from SpO2 Sensor 110 H 111 H Respiratory Rate 20 20 23 Respiratory Effort / Characteristics Non-Labored Spontaneous Respiratory Depth Normal Respiratory Pattern Regular Blood Pressure 155/74 H Blood Pressure [Right Arm] 155/74 H Blood Pressure Mean 101 Blood Pressure Mean [Right Arm] 101 Blood Pressure Position [Right Arm] Sitting Pulse Oximetry 99 100 100 Oxygen Delivery Method Nasal Cannula Oxygen Flow Rate 3 3 3 Sepsis Recent Fever Within 48 Hours Sepsis New/Unexplained Change in Mental Status Sepsis Action Taken by Nursing 04/28/21 17:50 04/28/21 18:00 04/28/21 18:10 Temperature Temperature Source Pulse Rate 92 H 70 72 Pulse Rate [Apical] Pulse Rate from SpO2 Sensor 95 H Respiratory Rate 20 15 23 Respiratory Effort / Characteristics Respiratory Depth Respiratory Pattern Blood Pressure 143/76 H Blood Pressure [Right Arm] Blood Pressure Mean 98 Blood Pressure Mean [Right Arm] Blood Pressure Position [Right Arm] Pulse Oximetry 98 Oxygen Delivery Method Nasal Cannula Oxygen Flow Rate 3 Sepsis Recent Fever Within 48 Hours Sepsis New/Unexplained Change in Mental Status Sepsis Action Taken by Nursing 04/28/21 18:20 04/28/21 18:30 04/28/21 18:40 Temperature Temperature Source Pulse Rate 74 67 69 Pulse Rate [Apical] Pulse Rate from SpO2 Sensor Respiratory Rate 23 25 H 18 Respiratory Effort / Characteristics Respiratory Depth Respiratory Pattern Blood Pressure Blood Pressure [Right Arm] Blood Pressure Mean Blood Pressure Mean [Right Arm] Blood Pressure Position [Right Arm] Pulse Oximetry 96 Oxygen Delivery Method Nasal Cannula Oxygen Flow Rate 3 Sepsis Recent Fever Within 48 Hours Sepsis New/Unexplained Change in Mental Status Sepsis Action Taken by Nursing 04/28/21 18:50 04/28/21 19:00 04/28/21 19:10 Temperature Temperature Source Pulse Rate 73 73 79 Pulse Rate [Apical] Pulse Rate from SpO2 Sensor Respiratory Rate 21 22 32 H Respiratory Effort / Characteristics Respiratory Depth Respiratory Pattern Blood Pressure 123/58 L Blood Pressure [Right Arm] Blood Pressure Mean 79 Blood Pressure Mean [Right Arm] Blood Pressure Position [Right Arm] Pulse Oximetry Oxygen Delivery Method Oxygen Flow Rate Sepsis Recent Fever Within 48 Hours Sepsis New/Unexplained Change in Mental Status Sepsis Action Taken by Nursing 04/28/21 19:19 04/28/21 19:20 04/28/21 19:30 Temperature 37.1 C Temperature Source Oral Pulse Rate 78 70 Pulse Rate [Apical] Pulse Rate from SpO2 Sensor 75 70 Respiratory Rate 23 23 Respiratory Effort / Characteristics Respiratory Depth Respiratory Pattern Blood Pressure 120/61 Blood Pressure [Right Arm] Blood Pressure Mean 80 Blood Pressure Mean [Right Arm] Blood Pressure Position [Right Arm] Pulse Oximetry 97 96 Oxygen Delivery Method Nasal Cannula Nasal Cannula Oxygen Flow Rate 3 3 Sepsis Recent Fever Within 48 Hours Sepsis New/Unexplained Change in Mental Status Sepsis Action Taken by Nursing 04/28/21 19:40 04/28/21 19:50 04/28/21 20:00 Temperature Temperature Source Pulse Rate 80 74 73 Pulse Rate [Apical] Pulse Rate from SpO2 Sensor 79 76 73 Respiratory Rate 23 22 21 Respiratory Effort / Characteristics Respiratory Depth Respiratory Pattern Blood Pressure Blood Pressure [Right Arm] Blood Pressure Mean Blood Pressure Mean [Right Arm] Blood Pressure Position [Right Arm] Pulse Oximetry 96 96 94 Oxygen Delivery Method Nasal Cannula Nasal Cannula Nasal Cannula Oxygen Flow Rate 3 3 3 Sepsis Recent Fever Within 48 Hours Sepsis New/Unexplained Change in Mental Status Sepsis Action Taken by Nursing 04/28/21 20:10 04/28/21 20:20 04/28/21 20:30 Temperature Temperature Source Pulse Rate 75 70 76 Pulse Rate [Apical] Pulse Rate from SpO2 Sensor 72 71 76 Respiratory Rate 19 20 20 Respiratory Effort / Characteristics Respiratory Depth Respiratory Pattern Blood Pressure 116/55 L Blood Pressure [Right Arm] Blood Pressure Mean 75 Blood Pressure Mean [Right Arm] Blood Pressure Position [Right Arm] Pulse Oximetry 94 94 95 Oxygen Delivery Method Nasal Cannula Nasal Cannula Nasal Cannula Oxygen Flow Rate 3 3 3 Sepsis Recent Fever Within 48 Hours Sepsis New/Unexplained Change in Mental Status Sepsis Action Taken by Nursing 04/28/21 20:40 04/28/21 20:50 04/28/21 21:00 Temperature Temperature Source Pulse Rate 69 72 80 Pulse Rate [Apical] Pulse Rate from SpO2 Sensor 71 73 74 Respiratory Rate 22 20 21 Respiratory Effort / Characteristics Respiratory Depth Respiratory Pattern Blood Pressure 131/47 L Blood Pressure [Right Arm] Blood Pressure Mean 75 Blood Pressure Mean [Right Arm] Blood Pressure Position [Right Arm] Pulse Oximetry 94 94 94 Oxygen Delivery Method Nasal Cannula Nasal Cannula Oxygen Flow Rate 3 3 Sepsis Recent Fever Within 48 Hours Sepsis New/Unexplained Change in Mental Status Sepsis Action Taken by Nursing 04/28/21 21:10 04/28/21 21:20 Temperature Temperature Source Pulse Rate 73 73 Pulse Rate [Apical] Pulse Rate from SpO2 Sensor 73 79 Respiratory Rate 20 20 Respiratory Effort / Characteristics Respiratory Depth Respiratory Pattern Blood Pressure Blood Pressure [Right Arm] Blood Pressure Mean Blood Pressure Mean [Right Arm] Blood Pressure Position [Right Arm] Pulse Oximetry 93 94 Oxygen Delivery Method Nasal Cannula Oxygen Flow Rate 3 Sepsis Recent Fever Within 48 Hours Sepsis New/Unexplained Change in Mental Status Sepsis Action Taken by [facility] Medications Current Medication List: was personally reviewed by me Laboratory Data Attestation: I reviewed the patient's lab results. Result diagrams: 04/29/21 04:44 04/29/21 04:44 Lab Results 04/28/21 04/28/21 04/28/21 Range/Units 17:07 17:07 17:07 WBC 5.28 (4.8-10.8) K/uL RBC 2.39 L (4.2-5.4) M/uL Hgb 9.5 L (12.0-16.0) g/dL Hct 29.9 L (37-47) % MCV 125.1 H (80-100) fL MCH 39.7 H (25-34) pg MCHC 31.8 L (32-36) g/dL RDW Std Deviation 68.3 H (36.4-46.3) fL RDW Coeff of Fior 15.0 H (11.5-14.5) % Plt Count 157 (130-400) K/uL MPV 10.6 H (7.4-10.4) fL Immature Gran % (Auto) 0.0 % Neut % (Auto) 77.1 % Lymph % (Auto) 11.4 % [place] % (Auto) 10.0 % Eos % (Auto) 0.9 % Baso % (Auto) 0.6 % Neut # (Auto) 4.07 (1.4-6.5) K/uL Lymph # (Auto) 0.60 L (1.2-3.4) K/uL [place] # (Auto) 0.53 (0.11-0.59) K/uL Eos # (Auto) 0.05 (0-0.5) K/uL Baso # (Auto) 0.03 (0-0.2) K/uL Immature Gran # (Auto) 0.00 (0.00-0.02) K/uL Polychromasia 1+ PT 9.8 (9.0-12.0) Seconds INR 1.0 (0.9-1.1) APTT 29.6 (21.0-31.0) Seconds PTT Ratio 1.1 ABG pH (7.35-7.45) ABG pCO2 (35-46) mmHg ABG pO2 (80-95) mmHg ABG HCO3 (19-24) mmol/L ABG O2 Saturation (90-95) % ABG Base Excess (-9-1.8) mEq/L Dar Test (Pos) Barometric Pressure mm/Hg Oxygen Given Sodium 141 (136-145) mmol/L Potassium 3.6 (3.5-5.1) mmol/L Chloride 101 (98-107) mmol/L Carbon Dioxide 32 (21-32) mmol/L Anion Gap 8 (3-11) BUN 14 (6-23) mg/dl Creatinine 4.17 H (0.6-1.2) mg/dl Est Cr Clr Drug Dosing 13.7 ml/min Est GFR ( Amer) 11.4 ml/min Est GFR (Non-Af Amer) 9.9 ml/min BUN/Creatinine Ratio 3.4 L (10-20) Glucose 130 H (70-99(Fasting)) mg/dl Lactate (0.4-2.0) mmol/L Calcium 8.7 (8.5-10.1) mg/dl Magnesium 2.0 (1.7-2.4) mg/dl Total Bilirubin 0.4 (0.2-1.0) mg/dl AST 15 (13-39) U/L ALT 15 (7-52) U/L Alkaline Phosphatase 84 (34-104) U/L Troponin I 0.03 (0-0.04) ng/ml Total Protein 5.7 L (6.0-8.3) gm/dl Albumin 3.5 (3.4-5.0) gm/dl Globulin 2.2 L (2.5-4.0) gm/dl Albumin/Globulin Ratio 1.6 (0.9-2) Procalcitonin (0-0.5) ng/ml Influ A Molecular Assay (Negative) Influ B Molecular Assay (Negative) SARS-CoV-2, RNA, NAAT 04/28/21 04/28/21 04/28/21 Range/Units 18:18 18:19 19:08 WBC (4.8-10.8) K/uL RBC (4.2-5.4) M/uL Hgb (12.0-16.0) g/dL Hct (37-47) % MCV (80-100) fL MCH (25-34) pg MCHC (32-36) g/dL RDW Std Deviation (36.4-46.3) fL RDW Coeff of Fior (11.5-14.5) % Plt Count (130-400) K/uL MPV (7.4-10.4) fL Immature Gran % (Auto) % Neut % (Auto) % Lymph % (Auto) % [place] % (Auto) % Eos % (Auto) % Baso % (Auto) % Neut # (Auto) (1.4-6.5) K/uL Lymph # (Auto) (1.2-3.4) K/uL [place] # (Auto) (0.11-0.59) K/uL Eos # (Auto) (0-0.5) K/uL Baso # (Auto) (0-0.2) K/uL Immature Gran # (Auto) (0.00-0.02) K/uL Polychromasia PT (9.0-12.0) Seconds INR (0.9-1.1) APTT (21.0-31.0) Seconds PTT Ratio ABG pH (7.35-7.45) ABG pCO2 (35-46) mmHg ABG pO2 (80-95) mmHg ABG HCO3 (19-24) mmol/L ABG O2 Saturation (90-95) % ABG Base Excess (-9-1.8) mEq/L Dar Test (Pos) Barometric Pressure mm/Hg Oxygen Given Sodium (136-145) mmol/L Potassium (3.5-5.1) mmol/L Chloride (98-107) mmol/L Carbon Dioxide (21-32) mmol/L Anion Gap (3-11) BUN (6-23) mg/dl Creatinine (0.6-1.2) mg/dl Est Cr Clr Drug Dosing ml/min Est GFR ( Amer) ml/min Est GFR (Non-Af Amer) ml/min BUN/Creatinine Ratio (10-20) Glucose (70-99(Fasting)) mg/dl Lactate 1.1 (0.4-2.0) mmol/L Calcium (8.5-10.1) mg/dl Magnesium (1.7-2.4) mg/dl Total Bilirubin (0.2-1.0) mg/dl AST (13-39) U/L ALT (7-52) U/L Alkaline Phosphatase (34-104) U/L Troponin I (0-0.04) ng/ml Total Protein (6.0-8.3) gm/dl Albumin (3.4-5.0) gm/dl Globulin (2.5-4.0) gm/dl Albumin/Globulin Ratio (0.9-2) Procalcitonin (0-0.5) ng/ml Influ A Molecular Assay Negative (Negative) Influ B Molecular Assay Negative (Negative) SARS-CoV-2, RNA, NAAT Cancelled 04/28/21 04/28/21 04/28/21 Range/Units 19:40 21:28 21:28 WBC (4.8-10.8) K/uL RBC (4.2-5.4) M/uL Hgb (12.0-16.0) g/dL Hct (37-47) % MCV (80-100) fL MCH (25-34) pg MCHC (32-36) g/dL RDW Std Deviation (36.4-46.3) fL RDW Coeff of Fior (11.5-14.5) % Plt Count (130-400) K/uL MPV (7.4-10.4) fL Immature Gran % (Auto) % Neut % (Auto) % Lymph % (Auto) % [place] % (Auto) % Eos % (Auto) % Baso % (Auto) % Neut # (Auto) (1.4-6.5) K/uL Lymph # (Auto) (1.2-3.4) K/uL [place] # (Auto) (0.11-0.59) K/uL Eos # (Auto) (0-0.5) K/uL Baso # (Auto) (0-0.2) K/uL Immature Gran # (Auto) (0.00-0.02) K/uL Polychromasia PT (9.0-12.0) Seconds INR (0.9-1.1) APTT (21.0-31.0) Seconds PTT Ratio ABG pH 7.48 H (7.35-7.45) ABG pCO2 41 (35-46) mmHg ABG pO2 67 L (80-95) mmHg ABG HCO3 29 H (19-24) mmol/L ABG O2 Saturation 94.5 (90-95) % ABG Base Excess 5.2 H (-9-1.8) mEq/L Dar Test POS (Pos) Barometric Pressure 741.0 mm/Hg Oxygen Given 3l O2 Sodium (136-145) mmol/L Potassium (3.5-5.1) mmol/L Chloride (98-107) mmol/L Carbon Dioxide (21-32) mmol/L Anion Gap (3-11) BUN (6-23) mg/dl Creatinine (0.6-1.2) mg/dl Est Cr Clr Drug Dosing ml/min Est GFR ( Amer) ml/min Est GFR (Non-Af Amer) ml/min BUN/Creatinine Ratio (10-20) Glucose (70-99(Fasting)) mg/dl Lactate (0.4-2.0) mmol/L Calcium (8.5-10.1) mg/dl Magnesium (1.7-2.4) mg/dl Total Bilirubin (0.2-1.0) mg/dl AST (13-39) U/L ALT (7-52) U/L Alkaline Phosphatase (34-104) U/L Troponin I (0-0.04) ng/ml Total Protein (6.0-8.3) gm/dl Albumin (3.4-5.0) gm/dl Globulin (2.5-4.0) gm/dl Albumin/Globulin Ratio (0.9-2) Procalcitonin 0.23 (0-0.5) ng/ml Influ A Molecular Assay (Negative) Influ B Molecular Assay (Negative) SARS-CoV-2, RNA, NAAT NEGATIVE Administered Medications Amoxicillin/Clavulanate Potassium (Amoxicillin/Clavulanate 500 Mg Tab) 1 tab PO QAM [facility]; Protocol Stop: 05/06/21 08:59 Last Admin: 04/29/21 09:31 Dose: 1 tab Documented by: [id number] Diltiazem HCl (Diltiazem Hcl 120 Mg Capcr) 120 mg PO DAILY [facility] Stop: 05/29/21 08:59 Last Admin: 04/29/21 09:31 Dose: 120 mg Documented by: [id number] Fluticasone/Vilanterol (Fluticasone/Vilanterol 100/25mcg 14 Puffs/Inhaler) 1 puffs INH DAILY [facility] Stop: 05/29/21 08:59 Last Admin: 04/29/21 09:32 Dose: 1 puffs Documented by: [id number] Heparin Sodium (Porcine) (Heparin Sod 5,000 Unit/0.5 Ml Vial) 5,000 units SQ Q8 [facility] Stop: 05/28/21 23:34 Last Admin: 04/29/21 06:21 Dose: 5,000 units Documented by: [id number] Admin: 04/29/21 00:38 Dose: 5,000 units Documented by: [id number] Hydralazine HCl (Hydralazine Tab 50 Mg Tab) 100 mg PO BID [facility] Stop: 05/28/21 23:34 Last Admin: 04/29/21 09:32 Dose: 100 mg Documented by: [id number] Admin: 04/29/21 00:43 Dose: 100 mg Documented by: [id number] Insulin Aspart (Insulin Aspart Per Unit) 0 units SC ACHS [facility] Stop: 05/28/21 23:34 Last Admin: 04/29/21 09:31 Dose: 2 units Documented by: [id number] Cosigned by: [id number] Admin: 04/29/21 00:55 Dose: 5 units Documented by: [id number] Cosigned by: [id number] Insulin Glargine (Insulin Glargine Solostar 100 Units/Ml 3 Ml Pen) 5 units SC DAILY [facility] Stop: 05/29/21 05:49 Last Admin: 04/29/21 09:30 Dose: 5 units Documented by: [id number] Cosigned by: [id number] Ipratropium Hayden (Ipratropium Hayden Neb Soln 0.02% 2.5 Ml Vial) 0.5 mg INH Q6R MARY Stop: 05/28/21 21:32 Last Admin: 04/29/21 07:08 Dose: 0.5 mg Documented by: [id number] Admin: 04/29/21 01:11 Dose: Not Given Documented by: [id number] Admin: 04/28/21 23:22 Dose: 0.5 mg Documented by: [id number] Levalbuterol HCl (Levalbuterol 1.25mg/0.5ml Neb) 1.25 mg INH Q6R MARY Stop: 05/28/21 21:32 Last Admin: 04/29/21 07:08 Dose: 1.25 mg Documented by: [id number] Admin: 04/29/21 01:11 Dose: Not Given Documented by: [id number] Admin: 04/28/21 23:22 Dose: 1.25 mg Documented by: [id number] Lisinopril (Lisinopril 40 Mg Tab) 40 mg PO DAILY MARY Stop: 05/29/21 08:59 Last Admin: 04/29/21 09:32 Dose: 40 mg Documented by: [id number] Prednisolone Acetate (Prednisolone Acetate 1% Op Susp 5 Ml Btl) 1 drops OPL DAILY MARY Stop: 05/29/21 08:59 Last Admin: 04/29/21 09:32 Dose: 1 drops Documented by: [id number] Prednisone (Prednisone 20 Mg Tab) 40 mg PO DAILY MARY Stop: 05/03/21 08:59 Last Admin: 04/29/21 09:33 Dose: 40 mg Documented by: [id number] Sevelamer HCl (Sevelamer Hcl 800 Mg Tablet) 2,400 mg PO TIDM MARY Stop: 05/29/21 07:59 Last Admin: 04/29/21 09:31 Dose: 2,400 mg Documented by: [id number] Umeclidinium Hayden (Umeclidinium Hayden 62.5mcg/Blister 7 Puffs/Inhaler) 1 puffs INH QAM MARY Stop: 05/29/21 08:59 Last Admin: 04/29/21 09:33 Dose: 1 puffs Documented by: [id number] Vitamin B Complex/Folic Acid (Nephrocaps) 1 cap PO QAM MARY Stop: 05/29/21 08:59 Last Admin: 04/29/21 09:32 Dose: 1 cap Documented by: [id number] Discontinued Medications Acetaminophen (Acetaminophen 1000 Mg/100 Ml Iv) 1,000 mg IV NOW STA Stop: 04/28/21 17:59 Last Admin: 04/28/21 18:21 Dose: 1,000 mg Documented by: [id number] Albuterol (Albut/Ipratrop 3mg/0.5mg Neb 3 Ml Vial) 3 ml NEB NOW STA; Protocol Stop: 04/28/21 17:59 Last Admin: 04/28/21 18:19 Dose: 3 ml Documented by: [id number] Cefepime HCl (Maxipime) 2,000 mg in 20 mls @ 5 mls/min IV NOW STA; Protocol Stop: 04/28/21 18:04 Last Admin: 04/28/21 18:18 Dose: 5 mls/min Documented by: [id number] Ampicillin Sodium/Sulbactam Sodium 3,000 mg/ Sodium Chloride 108 mls @ 200 mls/hr IV NOW STA Stop: 04/28/21 21:54 Last Infusion: 04/28/21 22:40 Dose: 0 mls/hr Documented by: [id number] Admin: 04/28/21 22:02 Dose: 200 mls/hr Documented by: [id number] Methylprednisolone (Methylprednisolone 125 Mg/2 Ml Vial) 60 mg IV NOW STA Stop: 04/28/21 18:40 Last Admin: 04/28/21 18:47 Dose: 60 mg Documented by: [id number] Imaging Data Radiologist's Impression: SINGLE VIEW CHEST CLINICAL HISTORY: Dyspnea. FINDINGS: An AP, portable, upright chest radiograph is compared to study dated 04/14/2021. The examination is degraded by portable technique and apical lordotic positioning. The heart is enlarged noting atherosclerotic calcification of the thoracic aorta. There is pulmonary vascular congestion and bilateral airspace opacities. Small pleural effusions are noted with bibasilar consolidation. No pneumothorax is seen. The skeletal structures are osteopenic. The bony thorax is grossly intact. Calcific tendinopathy is noted in the right shoulder. IMPRESSION: 1. Cardiomegaly with evidence of congestive failure. 2. Bilateral airspace opacities likely represent pulmonary edema. Correlate clinically for evidence of a superimposed infectious/inflammatory pneumonitis. Radiographic follow-up to resolution is recommended. 3. Small pleural effusions. Discharge Plan Visit Data Chief Complaint: Shortness of Breath/Dyspnea Stated Complaint: SOB ED Provider: Luigi Jacobson Discharge Problem: SOB (shortness of breath), COPD exacerbation, Acute bronchitis, Cough, Anemia Patient Disposition: Admitted As Inpatient Condition: Fair Discharge Instructions Interventions: ED Discharge Assessment Last Done: 04/29/21 00:05
[2021-04-28 18:12] LABS: Basophils # (auto) 0.03 K/uL (0-0.2); Basophils % (auto) 0.6 %; Eosinophils # (auto) 0.05 K/uL (0-0.5); Eosinophils % (auto) 0.9 %; Hematocrit (blood only) 29.9 % (37-47); Hemoglobin 9.5 g/dL (12.0-16.0); Lymphocytes % (auto) 11.4 %; Mean Corpuscular Hemoglobin 39.7 pg (25-34); Mean Corpuscular Hgb Conc 31.8 g/dL (32-36); Mean Corpuscular Volume 125.1 fL (80-100); Mean Platelet Volume 10.6 fL (7.4-10.4); Monocytes # (auto) 0.53 K/uL (0.11-0.59); Neutrophils # (auto) 4.07 K/uL (1.4-6.5); Neutrophils % (auto) 77.1 %; Platelet Count 157 K/uL (130-400); RDW Standard Deviation 68.3 fL (36.4-46.3); Red Blood Count 2.39 M/uL (4.2-5.4); White Blood Count 5.28 K/uL (4.8-10.8)
[2021-04-28 18:17] LABS: Partial Thromboplastin Ratio 1.1; Partial Thromboplastin Time 29.6 Seconds (21.0-31.0); Prothrombin Time 9.8 Seconds (9.0-12.0)
[2021-04-28 18:25] LABS: Troponin I 0.03 ng/ml (0-0.04)
[2021-04-28 18:37] LABS: Albumin Globulin Ratio 1.6 (0.9-2); Albumin Level 3.5 gm/dl (3.4-5.0); BUN Creatinine Ratio 3.4 (10-20); Bilirubin,Total 0.4 mg/dl (0.2-1.0); Calcium 8.7 mg/dl (8.5-10.1); Creatinine Clr Calc Pharmacy 13.7 ml/min; Est GFR (African American) 11.4 ml/min; Est GFR (Non-African American) 9.9 ml/min; Globulin 2.2 gm/dl (2.5-4.0); Potassium 3.6 mmol/L (3.5-5.1); Total Protein 5.7 gm/dl (6.0-8.3)
[2021-04-28 18:38] LABS: Polychromasia 1+
[2021-04-28] MEDS ORDERED: methylPREDNISolone 125 MG/2 ML VIAL IV STA (18:39)
[2021-04-28 18:56] LABS: Influenza A virus by PCR Negative (Negative); Influenza B virus by PCR Negative (Negative)
--- NOTE | 2021-04-28 19:36 | XRay Report ---
SINGLE VIEW CHEST CLINICAL HISTORY: Dyspnea. FINDINGS: An AP, portable, upright chest radiograph is compared to study dated 04/14/2021. The examina tion is degraded by portable technique and apical lordotic positioning. The heart is enlarged noting atherosclerotic calcification of the thoracic aorta. There is pulmonary vascular congestion and bilat eral airspace opacities. Small pleural effusions are noted with bibasilar consolidation. No pneumotho rax is seen. The skeletal structures are osteopenic. The bony thorax is grossly intact. Calcific tend inopathy is noted in the right shoulder. IMPRESSION: 1. Cardiomegaly with evidence of congestive failure. 2. Bilateral airspace opacities likely represent pulmonary edema. Correlate clinically for evidence o f a superimposed infectious/inflammatory pneumonitis. Radiographic follow-up to resolution is recomme nded. 3. Small pleural effusions. ACT 112: Negative or not required by law. Electronically signed by: Luigi García M.D. 04/28/2021 7:35 PM
[2021-04-28] MEDS ORDERED: AMPICILLIN/SULBACTAM SOD 3,000 MG in 0.9 % SODIUM CHLORIDE 100 ML IV STA (21:22)
[2021-04-28] MEDS ORDERED: IPRATROPIUM BROMIDE NEB SOLN 0.02% 2.5 ML VIAL INH SCH (21:33)
[2021-04-28] MEDS ORDERED: LEVALBUTEROL 1.25MG/0.5ML NEB INH SCH (21:33)
[2021-04-28 21:51] LABS: Base Excess ABG 5.2 mEq/L (-9-1.8); HCO3 ABG 29 mmol/L (19-24); Oxygen Saturation ABG 94.5 % (90-95); PCO2 ABG 41 mmHg (35-46); PO2 ABG 67 mmHg (80-95); pH ABG 7.48 (7.35-7.45)
[2021-04-28 21:52] LABS: Allen Test POS (Pos)
--- NOTE | 2021-04-28 22:39 | History & Physical Report ---
Date of Service April 28, 2021 Assessment & Plan (1) Acute hypoxemic respiratory failure: Plan: Acute on chronic hx chronic respiratory failure secondary to COPD on home O2 Secondary to protracted COPD exacerbation Possible aspiration pneumonia Ongoing tobacco abuse A. fib, not on anticoagulation secondary to bleeding and patient preference as per records chronic diastolic heart failure, EF of 65-70%. (TTE 2021), equivocal volume status valvular heart disease (moderate MR, mild TR, TTE 2021), HTN, slight elevated hx PVD ESRD on HD chronic anemia, hemoglobin at baseline DM 2 diet-controlled, well-controlled as of recent hemoglobin A1c of 5.1, J anuary 2021 ongoing tobacco abuse Medical telemetry Supplemental O2 Nebs RTC, prednisone course Unasyn followed by Augmentin for possible aspiration pneumonitis Swallow eval, aspiration precautions Pulmonary consult if without improvement Nephrology consult Re: Dialysis management Basal insulin, ISS BG goal 1 10-1 40, carb count coverage Nicotine replacement therapy as needed DVT prophylaxis. Heparin subcu Full code Text document was generated using Sepior voice recognition software. It may contain grammatical or spelling errors. Kindly contact undersigned for clarification of any documentation item in question. History of Present Illness Chief Complaint: Persistent cough, worsening shortness of breath Primary Care Provider: Noam Armando MD History obtained from patient and records. Medical history is significant forchronic respiratory failure secondary to COPD on home O2, chronic diastolic heart failure, EF of 65-70%. (TTE 2021), valvular heart disease (moderate MR, mild TR, TTE 2021), PAF not on anticoagulation secondary to bleeding and patient preference as per records HTN, PVD, ESRD on HD, chronic anemia (baseline hemoglobin 8-9), DM 2 diet- controlled, ongoing tobacco abuse. Last confinement 2 weeks ago for COPD exacerbation. Patient Advair changed to Symbicort due to financial constraints. Patient with persistent junky cough symptoms following discharge. No chest pain. Occasional coughing with meals/water intake as per patient. Denies weight gain or fluid retention as she had just finished dialysis. Patient noted to be weak and tachycardic after outpatient dialysis today. Noted to be in rapid A. fib at home. At the ER, patient received Solu-Medrol, neb treatment, and cefepime. MEDICAL HISTORY: As above. SURGERIES: nasal polypectomy, cataract surgery, appendectomy, cholecystectomy, oophorectomy, hysterectomy, vascular procedures, eye surgery, FAMILY HISTORY: Diabetes, heart disease. PERSONAL AND SOCIAL HISTORY: Past tobacco abuse. No chronic intake of alco holic beverages. Retired from [employer] work. Allergies Allergy/AdvReac Type Severity Reaction Status Date / Time No Known Allergies Allergy Verified 04/14/21 15:32 Home Medications Medication Instructions Recorded Confirmed Type diltiazem HCl 120 mg 120 mg PO DAILY 09/26/18 04/28/21 History capsule,extended release 24 hr ergocalciferol (vitamin D2) 1,250 50,000 unit PO MONTHLY 09/26/18 04/28/21 History mcg (50,000 unit) capsule hydralazine 50 mg tablet 100 mg PO BID 09/26/18 04/28/21 History ipratropium 0.5 mg-albuterol 3 mg 3 ml INHALATION QID PRN 09/26/18 04/28/21 History (2.5 mg base)/3 mL nebulization soln vitamin B complex-vitamin C-folic 1 tab PO QAM 09/26/18 04/28/21 History acid 0.8 mg tablet (Arabella-Tika) fluticasone propionate 50 2 spray INTRANASAL HS 01/18/19 04/28/21 History mcg/actuation nasal spray,suspension sevelamer carbonate 800 mg tablet See Rx Instructions .ROUTE .COMPLEX 01/18/19 04/28/21 History umeclidinium 62.5 mcg/actuation 1 inh INHALATION QAM 01/18/19 04/28/21 History blister powder for inhalation (Incruse Ellipta) albuterol sulfate 90 mcg/actuation 2 puff INHALATION Q4H PRN 04/05/19 04/28/21 History aerosol inhaler acetaminophen 325 mg tablet 650 mg PO Q6H PRN 04/14/21 04/28/21 History (Tylenol) camphor-menthol 0.5 %-0.5 % lotion 1 applic TOPICAL DIRECTED PRN 04/14/21 04/28/21 History docusate sodium 100 mg capsule 100 mg PO BID PRN 04/14/21 04/28/21 History (Colace) epoetin gabriel 10,000 unit/mL 0 unit IV DIRECTED 04/14/21 04/28/21 History injection solution (Procrit) lidocaine-prilocaine 2.5 %-2.5 % 1 applic TOPICAL DIRECTED PRN 04/14/21 04/28/21 History topical cream lisinopril 40 mg tablet 40 mg PO DAILY 04/14/21 04/28/21 History loperamide 2 mg capsule (Imodium 2 mg PO QID PRN 04/14/21 04/28/21 History A-D) prednisolone acetate 1 % eye 1 drp OPL DAILY 04/14/21 04/28/21 History drops,suspension valacyclovir 1 gram tablet 1,000 mg PO QAM 04/14/21 04/28/21 History budesonide-formoterol HFA 160 2 inh INHALATION BID #10.2 g 04/17/21 04/28/21 Rx mcg-4.5 mcg/actuation aerosol inhaler (Symbicort) Past Med/Surg History Medical History A-fib "paroxysmal" - follows with [facility] [place] cardiology Anemia of chronic disease AV fistula LUE COPD, moderate On 08/19/15 09:47 Mare Whyte wrote "2L O2 at home" Diastolic CHF DM type 2 (diabetes mellitus, type 2) IDDM Dyslipidemia ESRD (end stage renal disease) on dialysis follows with Dr. Reed; Hillary Corley, Luis Carlos - [facility] (since 02/2013) GI bleed hx History of colon polyps History of Helicobacter pylori infection HTN (hypertension) Moderate mitral regurgitation "moderate to severe on 12/2015 echo" On 01/13/16 15:17 Blanca Chan wrote "echo 06/2015 - calcified mitral valve, moderate MR" On home oxygen therapy 3 LPM cont Osteoarthritis Surgical History H/O colonoscopy "2005, hyperplastic polyps repeat in 10 years " H/O nasal polypectomy History of cataract surgery History of intestinal surgery History of surgery AVF creation S/P appendectomy "1971" S/P cholecystectomy "1971" S/P left oophorectomy "1981" S/P ASH (total abdominal hysterectomy) "For Fibroids " Family History Father Myocardial infarction, Onset Age: 64 Mother , 87 Alzheimer disease Other No family history of adverse response to anesthesia Social History Smoking Status: Current every day smoker Tobacco Type: Cigarettes Cigarettes Per Day: 3; Second Hand Exposure: No; Do You Dip or Chew Tobacco: No; Hx Alcohol Use: No Hx Substance Use: No Preferred Language: Maltese Communication Ability: Effective Yoke Setter 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 Beliefs That Will Affect Care: None marital status: / Current Living Situation: Alone current occupational status: retired Feels Safe at Home: Yes Safety Concerns: Feels Safe At This Time Assistive Devices: Glasses, Oxygen - Continuous and Walker Review of Systems Review of Systems: As per HPI, all 10 systems reviewed, all other ROS negative Physical Exam Physical Exam: GENERAL: Comfortable, obese, no respiratory distress SKIN: sallow, warm HEENT: Pale palpebral conjunctivae, no ptosis, moist buccal mucosa, nasal cannula in place NECK : Supple, short neck, no tenderness CHEST : Decreased breath sounds, expiratory wheezes, no tenderness HEART : Irregular, systolic murmur ABDOMEN: Some distention, nontender EXTREMITIES : Minimal LE swelling, no LE tenderness, no other conspicuous deformities noted NEUROLOGIC : Coherent, no facial asymmetry, no other gross focality Results & Data Results & Data ([facility]) Vital Signs (Past 12 Hours) Vital Signs Temp Pulse Pulse Resp BP BP Pulse Ox 04/28/21 22:20 78 18 94 04/28/21 22:10 79 18 94 04/28/21 22:00 74 18 163/63 H 95 04/28/21 21:50 76 15 97 04/28/21 21:40 81 21 95 04/28/21 21:31 83 23 166/72 H 92 04/28/21 21:30 78 16 91 04/28/21 21:20 73 29 H 88 L 04/28/21 21:10 73 20 93 04/28/21 21:00 80 21 131/47 L 94 04/28/21 20:50 72 20 94 04/28/21 20:40 69 22 94 04/28/21 20:30 76 20 116/55 L 95 04/28/21 20:20 70 20 94 04/28/21 20:10 75 19 94 04/28/21 20:00 73 21 94 04/28/21 19:50 74 22 96 04/28/21 19:40 80 23 96 04/28/21 19:30 70 23 120/61 96 04/28/21 19:20 78 23 97 04/28/21 19:19 37.1 C 04/28/21 19:10 79 32 H 04/28/21 19:00 73 22 123/58 L 04/28/21 18:50 73 21 04/28/21 18:40 69 18 04/28/21 18:30 67 25 H 96 04/28/21 18:20 74 23 04/28/21 18:10 72 23 04/28/21 18:00 70 15 143/76 H 04/28/21 17:50 92 H 20 98 04/28/21 17:40 103 H 23 100 04/28/21 17:37 92 H 20 155/74 H 100 04/28/21 17:30 112 H 20 155/74 H 99 04/28/21 17:20 104 H 21 99 04/28/21 17:18 37.7 C H 115 H 20 133/76 97 04/28/21 17:14 98 H 22 99 Laboratory Results Laboratory Results WBC 5.28 K/uL (4.8-10.8) 04/28/21 17:07 RBC 2.39 M/uL (4.2-5.4) L 04/28/21 17:07 Hgb 9.5 g/dL (12.0-16.0) L 04/28/21 17:07 Hct 29.9 % (37-47) L 04/28/21 17:07 MCV 125.1 fL (80-100) H 04/28/21 17:07 MCH 39.7 pg (25-34) H 04/28/21 17:07 MCHC 31.8 g/dL (32-36) L 04/28/21 17:07 RDW Std Deviation 68.3 fL (36.4-46.3) H 04/28/21 17:07 RDW Coeff of Fior 15.0 % (11.5-14.5) H 04/28/21 17:07 Plt Count 157 K/uL (130-400) 04/28/21 17:07 MPV 10.6 fL (7.4-10.4) H 04/28/21 17:07 Immature Gran % (Auto) 0.0 % 04/28/21 17:07 Neut % (Auto) 77.1 % 04/28/21 17:07 Lymph % (Auto) 11.4 % 04/28/21 17:07 Frederick % (Auto) 10.0 % 04/28/21 17:07 Eos % (Auto) 0.9 % 04/28/21 17:07 Baso % (Auto) 0.6 % 04/28/21 17:07 Neut # (Auto) 4.07 K/uL (1.4-6.5) 04/28/21 17:07 Lymph # (Auto) 0.60 K/uL (1.2-3.4) L 04/28/21 17:07 Frederick # (Auto) 0.53 K/uL (0.11-0.59) 04/28/21 17:07 Eos # (Auto) 0.05 K/uL (0-0.5) 04/28/21 17:07 Baso # (Auto) 0.03 K/uL (0-0.2) 04/28/21 17:07 Immature Gran # (Auto) 0.00 K/uL (0.00-0.02) 04/28/21 17:07 Polychromasia 1+ 04/28/21 17:07 PT 9.8 Seconds (9.0-12.0) 04/28/21 17:07 INR 1.0 (0.9-1.1) 04/28/21 17:07 APTT 29.6 Seconds (21.0-31.0) 04/28/21 17:07 PTT Ratio 1.1 04/28/21 17:07 ABG pH 7.48 (7.35-7.45) H 04/28/21: ABG pCO2 41 mmHg (35-46) 04/28/21: ABG pO2 67 mmHg (80-95) L 04/28/21: ABG HCO3 29 mmol/L (19-24) H 04/28/21 21: ABG O2 Saturation 94.5 % (90-95) 04/28/21 21: ABG Base Excess 5.2 mEq/L (-9-1.8) H 04/28/21 21:28 Dar Test POS (Pos) 04/28/21 21:28 Barometric Pressure 741.0 mm/Hg 04/28/21 21:28 Oxygen Given 3l O2 04/28/21 21:28 Sodium 141 mmol/L (136-145) 04/28/21 17:07 Potassium 3.6 mmol/L (3.5-5.1) 04/28/21 17:07 Chloride 101 mmol/L (98-107) 04/28/21 17:07 Carbon Dioxide 32 mmol/L (21-32) 04/28/21 17:07 Anion Gap 8 (3-11) 04/28/21 17:07 BUN 14 mg/dl (6-23) 04/28/21 17:07 Creatinine 4.17 mg/dl (0.6-1.2) H 04/28/21 17:07 Est Cr Clr Drug Dosing 13.7 ml/min 04/28/21 17:07 Est GFR ( Amer) 11.4 ml/min 04/28/21 17:07 Est GFR (Non-Af Amer) 9.9 ml/min 04/28/21 17:07 BUN/Creatinine Ratio 3.4 (10-20) L 04/28/21 17:07 Glucose 130 mg/dl (70-99(Fasting)) H 04/28/21 17:07 Lactate 1.1 mmol/L (0.4-2.0) 04/28/21 18:18 Calcium 8.7 mg/dl (8.5-10.1) 04/28/21 17:07 Magnesium 2.0 mg/dl (1.7-2.4) 04/28/21 17:07 Total Bilirubin 0.4 mg/dl (0.2-1.0) 04/28/21 17:07 AST 15 U/L (13-39) 04/28/21 17:07 ALT 15 U/L (7-52) 04/28/21 17:07 Alkaline Phosphatase 84 U/L (34-104) 04/28/21 17:07 Troponin I 0.03 ng/ml (0-0.04) 04/28/21 17:07 Total Protein 5.7 gm/dl (6.0-8.3) L 04/28/21 17:07 Albumin 3.5 gm/dl (3.4-5.0) 04/28/21 17:07 Globulin 2.2 gm/dl (2.5-4.0) L 04/28/21 17:07 Albumin/Globulin Ratio 1.6 (0.9-2) 04/28/21 17:07 Influ A Molecular Assay Negative (Negative) 04/28/21 18:19 Influ B Molecular Assay Negative (Negative) 04/28/21 18:19 SARS-CoV-2, RNA, NAAT NEGATIVE (NEGATIVE) 04/28/21 19:40 Impressions Chest X-Ray 04/28/21 18:00 SINGLE VIEW CHEST CLINICAL HISTORY: Dyspnea. FINDINGS: An AP, portable, upright chest radiograph is compared to study dated 04/14/2021. The examination is degraded by portable technique and apical lordotic positioning. The heart is enlarged noting atherosclerotic calcification of the thoracic aorta. There is pulmonary vascular congestion and bilateral airspace opacities. Small pleural effusions are noted with bibasilar consolidation. No pneumothorax is seen. The skeletal structures are osteopenic. The bony thorax is grossly intact. Calcific tendinopathy is noted in the right shoulder. IMPRESSION: 1. Cardiomegaly with evidence of congestive failure. 2. Bilateral airspace opacities likely represent pulmonary edema. Correlate clinically for evidence of a superimposed infectious/inflammatory pneumonitis. Radiographic follow-up to resolution is recommended. 3. Small pleural effusions. ACT 112: Negative or not required by law. Electronically signed by: Luigi García M.D. 04/28/2021 7:35 PM Diagnostic Findings EKG as per my interpretationRate 105, A. fib, normal axis,T wave abnormalities inferior leads Code Status & VTE Plan VTE Prophylaxis Plan VTE Prophylaxis will be ordered: Yes
[2021-04-28] MEDS: LEVALBUTEROL 1.25MG/0.5ML NEB INH SCH (23:22)
[2021-04-28] MEDS: IPRATROPIUM BROMIDE NEB SOLN 0.02% 2.5 ML VIAL INH SCH (23:22)
[2021-04-28] MEDS ORDERED: ACETAMINOPHEN 325 MG TAB PO PRN (23:35)
[2021-04-28] MEDS ORDERED: GLUCAGON FOR INJ 1 MG VIAL SQ PRN (23:35)
[2021-04-28] MEDS ORDERED: DEXTROSE 50% 50 ML SYRINGE IV PRN (23:35)
[2021-04-28] MEDS ORDERED: GLUCOSE 10 TABS/TUBE PO PRN (23:35)
[2021-04-28] MEDS ORDERED: GLUCOSE 40% GEL 15 GM TUBE PO PRN (23:35)
[2021-04-28] MEDS ORDERED: traMADol HCL 50 MG TABLET PO PRN (23:35)
[2021-04-28] MEDS ORDERED: CARBOHYDRATES FOR HYPOGLYCEMIA PO PRN (23:35)
[2021-04-28] MEDS ORDERED: PROMETHAZINE HCL 12.5 MG in SODIUM CHLORIDE 0.9% 50 ML IV PRN (23:35)
[2021-04-28] MEDS ORDERED: SEVELAMER HCL 800 MG TABLET PO PRN (23:44)
[2021-04-29] MEDS: HEPARIN SOD 5,000 UNIT/0.5 ML VIAL SQ SCH ×4 (00:38→21:23)
[2021-04-29] MEDS: hydrALAZINE TAB 50 MG TAB PO SCH ×3 (00:43→21:19)
[2021-04-29] MEDS ORDERED: AMOXICILLIN/CLAVULANATE 500 MG TAB PO PRN (00:46)
[2021-04-29] MEDS ORDERED: AMOXICILLIN/CLAVULANATE CONSULT ACTIVE PRN (00:47)
[2021-04-29] MEDS: INSULIN ASPART PER UNIT SC SCH ×6 (00:55→21:26)
[2021-04-29] MEDS ORDERED: XOPENEX/ATROVENT 1.25mg/0.5MG NEB COMBO NEB SCH (01:00)
[2021-04-29] MEDS: IPRATROPIUM BROMIDE NEB SOLN 0.02% 2.5 ML VIAL INH SCH ×4 (01:11→18:55)
[2021-04-29] MEDS: LEVALBUTEROL 1.25MG/0.5ML NEB INH SCH ×4 (01:11→18:56)
[2021-04-29 05:32] LABS: Hematocrit (blood only) 28.6 % (37-47); Hemoglobin 9.1 g/dL (12.0-16.0); Immature Granulocytes # (auto) 0.01 K/uL (0.00-0.02); Immature Granulocytes % (auto) 0.3 %; Lymphocytes # (auto) 0.17 K/uL (1.2-3.4); Lymphocytes % (auto) 4.6 %; Mean Corpuscular Hemoglobin 39.4 pg (25-34); Mean Corpuscular Hgb Conc 31.8 g/dL (32-36); Mean Corpuscular Volume 123.8 fL (80-100); Mean Platelet Volume 11.2 fL (7.4-10.4); Monocytes # (auto) 0.07 K/uL (0.11-0.59); Monocytes % (auto) 1.9 %; Neutrophils # (auto) 3.44 K/uL (1.4-6.5); Neutrophils % (auto) 93.2 %; Platelet Count 140 K/uL (130-400); RDW Coefficient of Variation 15.1 % (11.5-14.5); RDW Standard Deviation 67.7 fL (36.4-46.3); Red Blood Count 2.31 M/uL (4.2-5.4); White Blood Count 3.69 K/uL (4.8-10.8)
[2021-04-29 06:08] LABS: BUN Creatinine Ratio 4.2 (10-20); Calcium 8.6 mg/dl (8.5-10.1); Creatinine Clr Calc Pharmacy 10.5 ml/min; Est GFR (African American) 8.3 ml/min; Est GFR (Non-African American) 7.2 ml/min; Potassium 3.9 mmol/L (3.5-5.1)
[2021-04-29 06:21] LABS: Anisocytosis Present
[2021-04-29] MEDS ORDERED: INSULIN GLARGINE SOLOSTAR 100 UNITS/ML 3 ML PEN SC SCH (09:00)
[2021-04-29] MEDS: INSULIN GLARGINE SOLOSTAR 100 UNITS/ML 3 ML PEN SC SCH (09:30)
[2021-04-29] MEDS: SEVELAMER HCL 800 MG TABLET PO SCH ×3 (09:31→18:26)
[2021-04-29] MEDS: AMOXICILLIN/CLAVULANATE 500 MG TAB PO SCH (09:31)
[2021-04-29] MEDS: dilTIAZem HCL 120 MG CAPCR PO SCH (09:31)
[2021-04-29] MEDS: NEPHROCAPS PO SCH (09:32)
[2021-04-29] MEDS: FLUTICASONE/VILANTEROL 100/25MCG 14 PUFFS/INHALER INH SCH (09:32)
[2021-04-29] MEDS: prednisoLONE acetate 1% OP SUSP 5 ML BTL OPL SCH (09:32)
[2021-04-29] MEDS: lisinopril 40 MG TAB PO SCH (09:32)
[2021-04-29] MEDS: UMECLIDINIUM BROMIDE 62.5MCG/BLISTER 7 PUFFS/INHALER INH SCH (09:33)
[2021-04-29] MEDS: predniSONE 20 MG TAB PO SCH (09:33)
--- NOTE | 2021-04-29 11:23 | Electrocardiogram Report ---
Test Reason : Blood Pressure : / mmHG Vent. Rate : 104 BPM Atrial Rate : 120 BPM P-R Int : 000 ms QRS Dur : 098 ms QT Int : 352 ms P-R-T Axes : 000 052 -33 degrees QTc Int : 462 ms Atrial fibrillation with rapid ventricular response Nonspecific ST and T wave abnormality Abnormal ECG When compared with ECG of 14-APR-2021 14:33, No significant change was found Confirmed by Hai Penny ([id number]) on 04/29/2021 11:22:48 AM Referred By: REFERRED SELF Confirmed By:Hai Penny
--- NOTE | 2021-04-29 14:24 | Hospitalist Progress Note ---
Date of Service April 29, 2021 Assessment & Plan (1) Acute hypoxemic respiratory failure: Plan: Acute on chronic hx chronic respiratory failure secondary to COPD on home O2 Per patient's report, she had some breathing treatment at home after HD yesterday. Was evaluated by MANAGEMENT SUPERVISOR via televisit yesterday and was noted to be tachycardic Patient reported she felt no palpitation at the time. She denied any change in her chronic cough and exertional dyspnea Per Televisit note, patient was 86% pulse ox on home O2 and in Afib w/RVR with HR in 130s, hence the ER referral Patient denied any fevers, change in cough, vomiting Based on history, no leukocytosis, normal procal, my suspicion for infectious process is low CXR reported some b/l opacities likely pulm edema. ?superimposed infectious/inflammatory pneumonitis Will get CT chest for better assessment Currently on augmentin Will check procal in AM Counselled on smoking cessation -A. fib Chronic Afib w/RVR Currently rate controlled Continue diltiazem Not on anticoagulation secondary to bleeding and patient preference as per records -Chronic diastolic heart failure, EF of 65-70%. (TTE 2021), -Valvular heart disease (moderate MR, mild TR, TTE 2021), -Hypertension -ESRD on HD Continue lisinopril Nephro for HD -Chronic anemia Hemoglobin at baseline -DM 2 Diet-controlled Well-controlled as of recent hemoglobin A1c of 5.1, March 2021 Nicotine replacement therapy as needed DVT prophylaxis. Heparin subcu Full code Admission and Anticipated Discharge Date Admission Date: April 28, 2021 Subjective Patient seen and examined Reports only chronic cough Reports chronic dyspnea on exertion Denied any nausea, vomiting, abd pain, diarrhea Denied dysuria, freq,urgency Denied fever, chills Physical Exam Constitutional: + well hydrated and + obese; no acute distress Eyes: PERRL, conjunctivae normal, anicteric sclerae ENMT: external ear and nose normal, oropharynx normal Respiratory: normal respiratory effort; no respiratory distress Decreased breath sounds. No wheeze or crackles Cardiovascular: Rate/Rhythm: + irregularly irregular S1 S2 Gastrointestinal (Abdomen): normal bowel sounds, soft, nontender, no hepatosplenomegaly Musculoskeletal: no cyanosis or clubbing, extremities motor strength 5/5 Neurologic: PERRL, EOMI, accommodation nl, no face palsy, no dysarthria Psychiatric: A+Ox3, euthymic affect Results & Data Results & Data ([facility]) Vital Signs (Past 12 Hours) Vital Signs Pulse Resp BP Pulse Ox 04/29/21 12:22 74 20 98 04/29/21 12:11 76 19 133/62 96 04/29/21 09:19 78 17 133/78 99 04/29/21 07:08 86 20 98 04/29/21 03:00 71 18 130/54 L 98 Laboratory Results Abnormal lab results 04/28/21 04/28/21 04/28/21 Range/Units 17:07 17:07 21:28 WBC (4.8-10.8) K/uL RBC 2.39 L (4.2-5.4) M/uL Hgb 9.5 L (12.0-16.0) g/dL Hct 29.9 L (37-47) % MCV 125.1 H (80-100) fL MCH 39.7 H (25-34) pg MCHC 31.8 L (32-36) g/dL RDW Std Deviation 68.3 H (36.4-46.3) fL RDW Coeff of Fior 15.0 H (11.5-14.5) % MPV 10.6 H (7.4-10.4) fL Lymph # (Auto) 0.60 L (1.2-3.4) K/uL Josephine # (Auto) (0.11-0.59) K/uL ABG pH 7.48 H (7.35-7.45) ABG pO2 67 L (80-95) mmHg ABG HCO3 29 H (19-24) mmol/L ABG Base Excess 5.2 H (-9-1.8) mEq/L Creatinine 4.17 H (0.6-1.2) mg/dl BUN/Creatinine Ratio 3.4 L (10-20) Glucose 130 H (70-99(Fasting)) mg/dl POC Glucose (70-99) mg/dl Total Protein 5.7 L (6.0-8.3) gm/dl Globulin 2.2 L (2.5-4.0) gm/dl 04/29/21 04/29/21 04/29/21 Range/Units 00:46 04:44 04:44 WBC 3.69 L (4.8-10.8) K/uL RBC 2.31 L (4.2-5.4) M/uL Hgb 9.1 L (12.0-16.0) g/dL Hct 28.6 L (37-47) % MCV 123.8 H (80-100) fL MCH 39.4 H (25-34) pg MCHC 31.8 L (32-36) g/dL RDW Std Deviation 67.7 H (36.4-46.3) fL RDW Coeff of Fior 15.1 H (11.5-14.5) % MPV 11.2 H (7.4-10.4) fL Lymph # (Auto) 0.17 L (1.2-3.4) K/uL Josephine # (Auto) 0.07 L (0.11-0.59) K/uL ABG pH (7.35-7.45) ABG pO2 (80-95) mmHg ABG HCO3 (19-24) mmol/L ABG Base Excess (-9-1.8) mEq/L Creatinine 5.43 H* D (0.6-1.2) mg/dl BUN/Creatinine Ratio 4.2 L (10-20) Glucose 191 H (70-99(Fasting)) mg/dl POC Glucose 249 H (70-99) mg/dl Total Protein (6.0-8.3) gm/dl Globulin (2.5-4.0) gm/dl 04/29/21 04/29/21 Range/Units 08:29 12:30 WBC (4.8-10.8) K/uL RBC (4.2-5.4) M/uL Hgb (12.0-16.0) g/dL Hct (37-47) % MCV (80-100) fL MCH (25-34) pg MCHC (32-36) g/dL RDW Std Deviation (36.4-46.3) fL RDW Coeff of Fior (11.5-14.5) % MPV (7.4-10.4) fL Lymph # (Auto) (1.2-3.4) K/uL Josephine # (Auto) (0.11-0.59) K/uL ABG pH (7.35-7.45) ABG pO2 (80-95) mmHg ABG HCO3 (19-24) mmol/L ABG Base Excess (-9-1.8) mEq/L Creatinine (0.6-1.2) mg/dl BUN/Creatinine Ratio (10-20) Glucose (70-99(Fasting)) mg/dl POC Glucose 184 H 173 H (70-99) mg/dl Total Protein (6.0-8.3) gm/dl Globulin (2.5-4.0) gm/dl
--- NOTE | 2021-04-29 16:48 | CT Scan Report ---
CT SCAN OF THE CHEST WITHOUT IV CONTRAST CLINICAL HISTORY: Dyspnea. Abnormal chest x-ray. COMPARISON STUDY: Chest x-ray dated 04/28/2021. Chest CT dated 02/08/2017. TECHNIQUE: CT scan of the thorax was performed from the thoracic inlet to the upper abdomen. Images are reviewed in the axial, sagittal, and coronal planes. IV contrast was not administered for this ex amination as per the referring clinician. A dose lowering technique was utilized adhering to the rodrigo oniples of LARISA. CT DOSE: 300.82 mGy.cm FINDINGS: Thyroid: Mildly enlarged and heterogeneous. Thoracic aorta: There is atherosclerotic calcification of the thoracic aorta, which is normal in carly molly and demonstrates standard 3-vessel arch anatomy. Heart: The heart is enlarged noting a small pericardial effusion. The coronary arteries are densely c alcified. Lungs and pleural spaces: There are small to moderate pleural effusions with dependent consolidation. Intralobular septal thickening is noted. The trachea and central airways are clear. 3 mm pulmonary a nd pleural-based nodules in the right middle lobe are seen on images #173 and #193. These are unchang ed from 2017 and of doubtful significance. Mediastinum: There are numerous mildly enlarged mediastinal lymph nodes. A precarinal node measures 1 4 mm in short axis. Paratracheal nodes measure up to 11 mm in short axis. Madina: Not well assessed without IV contrast. Axillae: There is no axillary lymphadenopathy. Upper abdomen: A 3 cm cystic lesion in the spleen has been present dating back to 2017. The liver josé ears diffusely hyperdense which is nonspecific but can be seen in the setting of amiodarone therapy o r iron overload. Skeletal structures: The skeletal structures are heterogeneously osteopenic. No lytic or blastic bony lesions are seen. Degenerative changes noted in the shoulders and right sternoclavicular joint. Mild spondylotic change is seen throughout the thoracic spine. IMPRESSION: 1. Cardiomegaly with diffuse intralobular septal thickening. This suggests congestive failure and cli nical correlation will be required. 2. Small to moderate pleural effusions with dependent consolidation. This likely represents atelectas is and clinical correlation will be required 3. There are numerous mildly enlarged mediastinal lymph nodes which are nonspecific but similar to 20 17. 4. The liver appears diffusely hypodense. This is a nonspecific finding but can potentially be seen w ith iron overload or amiodarone therapy. 5. Additional findings as above. ACT 112: Negative or not required by law. Electronically signed by: Luigi García M.D. 04/29/2021 4:47 PM
--- NOTE | 2021-04-29 19:35 | Nephrology Consultation ---
Date of Consultation April 29, 2021 Assessment & Plan (1) ESRD (end stage renal disease) on dialysis: esrd on TRSat HD; no indication for emergent HD today; she is up to date wtih her txs. CT suggestive of mild vol OL -HD tomorrow per routine will work for more UF, at [facility] TW -stable chornic anemia > anemia meds on tx -daily bmp -changed regular diet to renal diet w/ 1.2L FR; will defer to primary to order DM diet as indicated History of Present Illness Reason for Consultation: ESRD on HD Requesting Physician: Dr Wong Attending Physician: Dodie Ku MD History of Present Illness 76 y/o F whom I'm asked to see for dialysis needs was admitted overnight after presenting for evaluation of rapid heart rates to 130s and ongoing cough in setting of recent COPD exacerbation. Past medical history include insulin-dependent type 2 diabetes, hypertension, COPD and chronic respiratory failure on 3 L O2 at baseline, paroxysmal atrial fibrillation, chronic ambulatory dysfunction walker dependent, active tobacco abuse. She dialyzes under my care at [facility] Tuesday and is adherent with treatment recommendations. Last full dialysis was yesterday; she had 1.5 L fluid removed at that tx. RNs at dialysis did report her cough and breathing were notably worse at HD. She was hospitalized here last month briefly for COPD exacerbation after going several years w/o inpatient admission. Pt was undergoing video visit at home yesterday and HHN checked her VS, noting HR in 130s. She had no palpitations or chest pain; impression was that cough may be bringing on AF w/ RVR. She is receiving nebs, steroids, abtx. Feels stable/improved somewhat from respiratory standpoint. Tired after events past 24 hrs; still no palpitations or chest pain. no GI c/o. she is anuric. Pt was seen and evaluated by me this AM in ER at approximately 1015. CXR looked essentially unchanged from prior visit, so hospitalist obtained CT Chest Allergies Allergy/AdvReac Type Severity Reaction Status Date / Time No Known Allergies Allergy Verified 04/14/21 15:32 Home Medications Medication Instructions Recorded Confirmed Type diltiazem HCl 120 mg 120 mg PO DAILY 09/26/18 04/28/21 History capsule,extended release 24 hr ergocalciferol (vitamin D2) 1,250 50,000 unit PO MONTHLY 09/26/18 04/28/21 History mcg (50,000 unit) capsule hydralazine 50 mg tablet 100 mg PO BID 09/26/18 04/28/21 History ipratropium 0.5 mg-albuterol 3 mg 3 ml INHALATION QID PRN 09/26/18 04/28/21 Hist ory (2.5 mg base)/3 mL nebulization soln vitamin B complex-vitamin C-folic 1 tab PO QAM 09/26/18 04/28/21 History acid 0.8 mg tablet (Arabella-Tika) fluticasone propionate 50 2 spray INTRANASAL HS 01/18/19 04/28/21 History mcg/actuation nasal spray,suspension sevelamer carbonate 800 mg tablet See Rx Instructions .ROUTE .COMPLEX 01/18/19 04/28/21 History umeclidinium 62.5 mcg/actuation 1 inh INHALATION QAM 01/18/19 04/28/21 History blister powder for inhalation (Incruse Ellipta) albuterol sulfate 90 mcg/actuation 2 puff INHALATION Q4H PRN 04/05/19 04/28/21 History aerosol inhaler acetaminophen 325 mg tablet 650 mg PO Q6H PRN 04/14/21 04/28/21 History (Tylenol) camphor-menthol 0.5 %-0.5 % lotion 1 applic TOPICAL DIRECTED PRN 04/14/21 04/28/21 History docusate sodium 100 mg capsule 100 mg PO BID PRN 04/14/21 04/28/21 History (Colace) epoetin gabriel 10,000 unit/mL 0 unit IV DIRECTED 04/14/21 04/28/21 History injection solution (Procrit) lidocaine-prilocaine 2.5 %-2.5 % 1 applic TOPICAL DIRECTED PRN 04/14/2104/18 History topical cream lisinopril 40 mg tablet 40 mg PO DAILY 04/14/21 04/28/21 History loperamide 2 mg capsule (Imodium 2 mg PO QID PRN 04/14/21 04/28/21 History A-D) prednisolone acetate 1 % eye 1 drp OPL DAILY 04/14/21 04/28/21 History drops,suspension valacyclovir 1 gram tablet 1,000 mg PO QAM 04/14/21 04/28/21 History budesonide-formoterol HFA 160 2 inh INHALATION BID #10.2 g 04/17/21 04/28/21 Rx mcg-4.5 mcg/actuation aerosol inhaler (Symbicort) Patient History Medical History A-fib "paroxysmal" - follows with [facility] cardiology Anemia of chronic disease AV fistula LUE COPD, moderate On 08/19/15 09:47 Mare Whyte wrote "2L O2 at home" Diastolic CHF DM type 2 (diabetes mellitus, type 2) IDDM Dyslipidemia ESRD (end stage renal disease) on dialysis follows with Dr. Reed; Hillary Corley, [facility] - [facility] (since 02/2013) GI bleed hx History of colon polyps History of Helicobacter pylori infection HTN (hypertension) Moderate mitral regurgitation "moderate to severe on 12/2015 echo" On 01/13/16 15:17 Blanca Chan wrote "echo 06/2015 - calcified mitral valve, moderate MR" On home oxygen therapy 3 LPM cont Osteoarthritis Surgical History H/O colonoscopy "2005, hyperplastic polyps repeat in 10 years " H/O nasal polypectomy History of cataract surgery History of intestinal surgery History of surgery AVF creation S/P appendectomy "1971" S/P cholecystectomy "1971" S/P left oophorectomy "1981" S/P ASH (total abdominal hysterectomy) "For Fibroids " Family History Father Myocardial infarction, Onset Age: 64 Mother , 87 Alzheimer disease Other No family history of adverse response to anesthesia Social History Smoking Status: Current every day smoker Tobacco Type: Cigarettes Cigarettes Per Day: 3; Second Hand Exposure: No; Do You Dip or Chew Tobacco: No; Hx Alcohol Use: No Hx Substance Use: No Preferred Language: Indian Communication Ability: Effective 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 Beliefs That Will Affect Care: None marital status: / Current Living Situation: Alone current occupational status: retired Feels Safe at Home: Yes Safety Concerns: Feels Safe At This Time Assistive Devices: Oxygen - Continuous Review of Systems Review of Systems: All systems reviewed & are unremarkable except as noted in HPI & below Physical Exam Constitutional: well developed, well nourished, + frail appearing and cooperative; no acute distress Eyes: EOM intact bilaterally ENMT: Ears: no external ear abnormality Nose: no external nose abnormality Mouth: + dry oral mucous membranes Neck: no nuchal rigidity Respiratory: normal respiratory effort Auscultation: + diminished lung sounds, + crackles (bibasilar) and + wheezes (occasional expiratory) Cardiovascular: RRR, no murmur, no edema Extremities: + AV fistula (LUE + t/b) Gastrointestinal (Abdomen): Inspection/Auscultation: normal bowel sounds Percussion/Palpation: abdomen soft; abdomen nontender Musculoskeletal: Extremities: strength 5/5 throughout Skin: no rashes, warm and dry Neurologic: louie, fluent speech, no tremor Psychiatric: Orientation: alert and oriented x 3 Insight: good insight Judgement: good judgement Results & Data ([facility]) Vital Signs (Past 12 Hours) Vital Signs Pulse Resp BP Pulse Ox 04/29/21 18:56 83 24 94 04/29/21 12:22 74 20 98 04/29/21 12:11 76 19 133/62 96 04/29/21 09:19 78 17 133/78 99 Laboratory Results 04/29/21 04:44 04/29/21 04:[address] chest CT SCAN OF THE CHEST WITHOUT IV CONTRAST CLINICAL HISTORY: Dyspnea. Abnormal chest x-ray. COMPARISON STUDY: Chest x-ray dated 04/28/2021. Chest CT dated 02/08/2017. TECHNIQUE: CT scan of the thorax was performed from the thoracic inlet to the upper abdomen. Images are reviewed in the axial, sagittal, and coronal planes. IV contrast was not administered for this examination as per the referring clinician. A dose lowering technique was utilized adhering to the principles of ALARA. CT DOSE: 300.82 mGy.cm FINDINGS: Thyroid: Mildly enlarged and heterogeneous. Thoracic aorta: There is atherosclerotic calcification of the thoracic aorta, which is normal in caliber and demonstrates standard 3-vessel arch anatomy. Heart: The heart is enlarged noting a small pericardial effusion. The coronary arteries are densely calcified. Lungs and pleural spaces: There are small to moderate pleural effusions with dependent consolidation. Intralobular septal thickening is noted. The trachea and central airways are clear. 3 mm pulmonary and pleural-based nodules in the right middle lobe are seen on images #173 and #193. These are unchanged from 2017 and of doubtful significance. Mediastinum: There are numerous mildly enlarged mediastinal lymph nodes. A precarinal node measures 14 mm in short axis. Paratracheal nodes measure up to 11 mm in short axis. Madina: Not well assessed without IV contrast. Axillae: There is no axillary lymphadenopathy. Upper abdomen: A 3 cm cystic lesion in the spleen has been present dating back to 2017. The liver appears diffusely hyperdense which is nonspecific but can be seen in the setting of amiodarone therapy or iron overload. Skeletal structures: The skeletal structures are heterogeneously osteopenic. No lytic or blastic bony lesions are seen. Degenerative changes noted in the shoulders and right sternoclavicular joint. Mild spondylotic change is seen throughout the thoracic spine. IMPRESSION: 1. Cardiomegaly with diffuse intralobular septal thickening. This suggests congestive failure and clinical correlation will be required. 2. Small to moderate pleural effusions with dependent consolidation. This likely represents atelectasis and clinical correlation will be required 3. There are numerous mildly enlarged mediastinal lymph nodes which are nonspecific but similar to 2017. 4. The liver appears diffusely hypodense. This is a nonspecific finding but can potentially be seen with iron overload or amiodarone therapy. 5. Additional findings as above.
[2021-04-29] MEDS: FLUTICASONE PROPIONATE NA SPR 16 GM BTL SCH (21:24)
[2021-04-30] MEDS: IPRATROPIUM BROMIDE NEB SOLN 0.02% 2.5 ML VIAL INH SCH ×4 (00:39→19:36)
[2021-04-30] MEDS: LEVALBUTEROL 1.25MG/0.5ML NEB INH SCH ×4 (00:40→19:36)
[2021-04-30] MEDS: HEPARIN SOD 5,000 UNIT/0.5 ML VIAL SQ SCH ×3 (05:42→20:57)
[2021-04-30] MEDS ORDERED: HEPARIN SOD (PORCINE) 1000 UNIT/ML IV ONE (07:07)
[2021-04-30] MEDS ORDERED: EPOETIN ALFA 20,000 UNITS/ML VIAL IV ONE (07:07)
[2021-04-30] MEDS ORDERED: SODIUM CHLORIDE 0.9% 1000ML 1,000 ML IV PRN (07:07)
[2021-04-30] MEDS: FLUTICASONE/VILANTEROL 100/25MCG 14 PUFFS/INHALER INH SCH (07:45)
[2021-04-30] MEDS: UMECLIDINIUM BROMIDE 62.5MCG/BLISTER 7 PUFFS/INHALER INH SCH (07:45)
[2021-04-30] MEDS: SEVELAMER HCL 800 MG TABLET PO SCH ×3 (07:46→17:26)
[2021-04-30] MEDS: predniSONE 20 MG TAB PO SCH (07:46)
[2021-04-30] MEDS: AMOXICILLIN/CLAVULANATE 500 MG TAB PO SCH (07:46)
[2021-04-30] MEDS: NEPHROCAPS PO SCH (07:47)
[2021-04-30] MEDS: prednisoLONE acetate 1% OP SUSP 5 ML BTL OPL SCH (07:47)
[2021-04-30] MEDS: INSULIN GLARGINE SOLOSTAR 100 UNITS/ML 3 ML PEN SC SCH (08:18)
[2021-04-30] MEDS: INSULIN ASPART PER UNIT SC SCH ×4 (08:19→20:56)
[2021-04-30 08:20] LABS: Hematocrit (blood only) 28.2 % (37-47); Hemoglobin 8.9 g/dL (12.0-16.0); Mean Corpuscular Hemoglobin 39.2 pg (25-34); Mean Corpuscular Hgb Conc 31.6 g/dL (32-36); Mean Corpuscular Volume 124.2 fL (80-100); Platelet Count 157 K/uL (130-400); RDW Coefficient of Variation 15.3 % (11.5-14.5); RDW Standard Deviation 69.6 fL (36.4-46.3); Red Blood Count 2.27 M/uL (4.2-5.4); White Blood Count 6.55 K/uL (4.8-10.8)
[2021-04-30] MEDS ORDERED: LIDOCAINE/PRILOCAINE 2.5% EA CRM EXT ONE (08:37)
[2021-04-30] MEDS ORDERED: ERGOCALCIFEROL 50,000 UNITS 1250 MCG CAP PO SCH (09:00)
[2021-04-30 09:13] LABS: BUN Creatinine Ratio 6.1 (10-20); Calcium 8.5 mg/dl (8.5-10.1); Creatinine Clr Calc Pharmacy 7.4 ml/min; Est GFR (African American) 5.5 ml/min; Est GFR (Non-African American) 4.7 ml/min; Potassium 4.2 mmol/L (3.5-5.1)
--- NOTE | 2021-04-30 09:56 | Hospitalist Progress Note ---
Date of Service April 30, 2021 Assessment & Plan (1) Acute hypoxemic respiratory failure: Plan: Acute on chronic hx chronic respiratory failure secondary to COPD on home O2 Per patient's report, she had some breathing treatment at home after HD yesterday. Was evaluated by ASTROBIOLOGIST via televisit on day of presentation and was noted to be tachycardic Patient reported she felt no palpitation at the time. She denied any change in her chronic cough and exertional dyspnea Per Televisit note, patient was 86% pulse ox on home O2 and in Afib w/RVR with HR in 130s, hence the ER referral Patient denied any fevers, change in cough, vomiting CXR reported some b/l opacities likely pulm edema. ?superimposed infectious/inflammatory pneumonitis CT chest showed cardiomegaly, diffuse intralobular septal thickening, small to moderate pleural effusion with dependent consolidation likely atelectasis, mildly enlarged mediastinal LN similar to 2017 Procal trend is negative. No leukocytosis Stop augmentin Continue nebs and prednisone for COPD exacerbation Will get fluid removal during HD today Counselled on smoking cessation. Patient reports she has not smoked since last admission Incentive spirometry Currently on home oxygen -A. fib Chronic Afib w/RVR Currently rate controlled Continue diltiazem Not on anticoagulation secondary to bleeding and patient preference as per records -Chronic diastolic heart failure, EF of 65-70%. (TTE 2021), -Valvular heart disease (moderate MR, mild TR, TTE 2021), -Hypertension -ESRD on HD Continue lisinopril Nephro for HD -Chronic anemia Hemoglobin at baseline -DM 2 Diet-controlled Well-controlled as of recent hemoglobin A1c of 5.1, March 2021 DVT prophylaxis. Heparin subcu Full code Admission and Anticipated Discharge Date Admission Date: April 28, 2021 Subjective Patient seen and examined Reports chronic cough Reports chronic dyspnea on exertion Reported bouts of wheezing this morning that resolved with neb treatment Denied any nausea, vomiting, abd pain, diarrhea Denied dysuria, freq,urgency Denied fever, chills Physical Exam Constitutional: + well hydrated and + obese; no acute distress Eyes: PERRL, conjunctivae normal, anicteric sclerae ENMT: external ear and nose normal, oropharynx normal Respiratory: normal respiratory effort; no respiratory distress Diminished breath sounds No wheezing On nasal oxygen Cardiovascular: Rate/Rhythm: + irregularly irregular S1 S2 +murmur Gastrointestinal (Abdomen): normal bowel sounds, soft, nontender, no hepatosplenomegaly Musculoskeletal: no cyanosis or clubbing, extremities motor strength 5/5 Neurologic: PERRL, EOMI, accommodation nl, no face palsy, no dysarthria Psychiatric: A+Ox3, euthymic affect Results & Data Results & Data ([facility]) Vital Signs (Past 12 Hours) Vital Signs Temp Pulse Pulse Resp BP Pulse Ox 04/30/21 07:59 74 18 93 04/30/21 07:46 36.8 C 61 18 132/69 96 04/30/21 07:00 66 04/30/21 04:05 36.8 C 69 18 152/68 H 93 04/30/21 01:28 69 04/30/21 00:40 70 20 93 04/29/21 22:59 36.9 C 70 18 160/61 H 97 Laboratory Results Abnormal lab results 04/29/21 04/29/21 04/29/21 Range/Units 12:30 17:56 20:21 RBC (4.2-5.4) M/uL Hgb (12.0-16.0) g/dL Hct (37-47) % MCV (80-100) fL MCH (25-34) pg MCHC (32-36) g/dL RDW Std Deviation (36.4-46.3) fL RDW Coeff of Fior (11.5-14.5) % MPV (7.4-10.4) fL BUN (6-23) mg/dl Creatinine (0.6-1.2) mg/dl BUN/Creatinine Ratio (10-20) POC Glucose 173 H 135 H 207 H (70-99) mg/dl 04/30/21 04/30/21 04/30/21 Range/Units 07:53 07:53 07:53 RBC 2.27 L (4.2-5.4) M/uL Hgb 8.9 L (12.0-16.0) g/dL Hct 28.2 L (37-47) % MCV 124.2 H (80-100) fL MCH 39.2 H (25-34) pg MCHC 31.6 L (32-36) g/dL RDW Std Deviation 69.6 H (36.4-46.3) fL RDW Coeff of Fior 15.3 H (11.5-14.5) % MPV 11.0 H (7.4-10.4) fL BUN 47 H D (6-23) mg/dl Creatinine 7.68 H* D (0.6-1.2) mg/dl BUN/Creatinine Ratio 6.1 L (10-20) POC Glucose 101 H (70-99) mg/dl
[2021-04-30] MEDS: HEPARIN SOD (PORCINE) 1000 UNIT/ML IV SCH ×3 (10:44→18:15)
--- NOTE | 2021-04-30 12:29 | Dialysis Progress Note ---
Date of Service April 30, 2021 Assessment & Plan (1) ESRD (end stage renal disease) on dialysis: Plan: esrd on TRSat HD; admitted w/ coughing, AF/RVR >> CT suggestive of mild vol OL -HD today per routine will work for more UF, at [employer] [place] -stable chornic anemia > anemia meds on tx -daily bmp -cont renal diet w/ 1.2L FR -cont binder, renal vitamin >if here tomorrow we may attempt short treatment to further remove fluid Admission and Anticipated Discharge Date Admission Date: April 28, 2021 Subjective slept poorly; no interval events. had wheezes this am cleared per report w/ nebs. CT chest w/ vol OL Review of Systems Review of Systems: All systems reviewed & are unremarkable except as noted in Subjective Physical Exam Constitutional: well developed, well nourished, + frail appearing and cooperative; no acute distress Eyes: EOM intact bilaterally ENMT: Ears: no external ear abnormality Nose: no external nose abnormality Mouth: + dry oral mucous membranes Neck: no nuchal rigidity Respiratory: normal respiratory effort Auscultation: + diminished lung sounds and + crackles (bibasilar) Cardiovascular: RRR, no murmur, no edema Extremities: + AV fistula (LUE + t/b) Gastrointestinal (Abdomen): Inspection/Auscultation: normal bowel sounds Percussion/Palpation: abdomen soft; abdomen nontender Musculoskeletal: Extremities: strength 5/5 throughout Skin: no rashes, warm and dry Psychiatric: Orientation: alert and oriented x 3 Insight: good insight Judgement: good judgement Results & Data ([facility]) Vital Signs (Past 12 Hours) Vital Signs Temp Pulse Pulse Pulse Resp BP BP 04/30/21 12:00 66 140/34 L 04/30/21 11:40 63 164/75 H 04/30/21 11:20 62 147/68 H 04/30/21 11:00 58 L 155/66 H 04/30/21 10:40 63 154/72 H 04/30/21 10:20 63 146/71 H 04/30/21 10:00 64 141/67 H 04/30/21 09:45 65 143/65 H 04/30/21 09:37 36.5 C 68 04/30/21 07:59 74 18 04/30/21 07:46 36.8 C 61 18 132/69 02/03/22 07:00 66 04/30/21 04:05 36.8 C 69 18 152/68 H 04/30/21 01:28 69 04/30/21 00:40 70 20 Pulse Ox 04/30/21 12:00 04/30/21 11:40 04/30/21 11:20 04/30/21 11:00 04/30/21 10:40 04/30/21 10:20 04/30/21 10:00 04/30/21 09:45 04/30/21 09:37 04/30/21 07:59 93 04/30/21 07:46 96 04/30/21 07:00 04/30/21 04:05 93 04/30/21 01:28 04/30/21 00:40 93 Laboratory Results 04/30/21 07:53 04/30/21 07:53
[2021-04-30] MEDS: lisinopril 40 MG TAB PO SCH (14:25)
[2021-04-30] MEDS: dilTIAZem HCL 120 MG CAPCR PO SCH (14:25)
[2021-04-30] MEDS: hydrALAZINE TAB 50 MG TAB PO SCH ×2 (14:25→20:56)
[2021-04-30] MEDS: FLUTICASONE PROPIONATE NA SPR 16 GM BTL SCH (20:55)
[2021-04-30] MEDS: DOCUSATE SODIUM 100 MG CAP PO PRN (20:57)
[2021-05-01] MEDS: IPRATROPIUM BROMIDE NEB SOLN 0.02% 2.5 ML VIAL INH SCH ×3 (00:48→12:56)
[2021-05-01] MEDS: LEVALBUTEROL 1.25MG/0.5ML NEB INH SCH ×3 (00:48→12:56)
[2021-05-01] MEDS: HEPARIN SOD 5,000 UNIT/0.5 ML VIAL SQ SCH ×2 (05:40→14:35)
[2021-05-01 06:39] LABS: BUN Creatinine Ratio 5.8 (10-20); Calcium 8.4 mg/dl (8.5-10.1); Est GFR (African American) 8.9 ml/min; Est GFR (Non-African American) 7.7 ml/min; Potassium 3.9 mmol/L (3.5-5.1)
[2021-05-01] MEDS ORDERED: HEPARIN SOD (PORCINE) 1000 UNIT/ML IV ONE (07:52)
[2021-05-01] MEDS ORDERED: SODIUM CHLORIDE 0.9% 1000ML 1,000 ML IV PRN (07:52)
[2021-05-01] MEDS: UMECLIDINIUM BROMIDE 62.5MCG/BLISTER 7 PUFFS/INHALER INH SCH (07:57)
[2021-05-01] MEDS: NEPHROCAPS PO SCH (07:57)
[2021-05-01] MEDS: SEVELAMER HCL 800 MG TABLET PO SCH ×3 (07:57→16:58)
[2021-05-01] MEDS: FLUTICASONE/VILANTEROL 100/25MCG 14 PUFFS/INHALER INH SCH (07:58)
[2021-05-01] MEDS: predniSONE 20 MG TAB PO SCH (07:58)
[2021-05-01] MEDS: INSULIN GLARGINE SOLOSTAR 100 UNITS/ML 3 ML PEN SC SCH (07:58)
[2021-05-01] MEDS: prednisoLONE acetate 1% OP SUSP 5 ML BTL OPL SCH (07:58)
[2021-05-01] MEDS: INSULIN ASPART PER UNIT SC SCH ×3 (08:02→16:58)
[2021-05-01] MEDS: DOCUSATE SODIUM 100 MG CAP PO PRN (08:10)
[2021-05-01] MEDS ORDERED: HEPARIN SOD (PORCINE) 1000 UNIT/ML IV SCH (08:30)
[2021-05-01] MEDS ORDERED: LIDOCAINE/PRILOCAINE 2.5% EA CRM EXT ONE (08:43)
--- NOTE | 2021-05-01 12:24 | Nephrology Progress Note ---
Date of Service May 01, 2021 Assessment & Plan Admission and Anticipated Discharge Date Admission Date: April 28, 2021 Subjective tolerated higher UF yesterday (>3.5L) slept well; sob stable; for d/c later today Results & Data ([facility]) Vital Signs (Past 12 Hours) Vital Signs Temp Pulse Pulse Pulse Pulse Resp BP 05/01/21 11:22 37.1 C 67 05/01/21 11:04 36.7 C 60 20 05/01/21 07:33 36.8 C 63 20 143/68 H 05/01/21 07:20 59 L 18 05/01/21 07:00 59 L 05/01/21 02:53 36.8 C 67 18 05/01/21 00:48 63 16 BP Pulse Ox 05/01/21 11:22 05/01/21 11:04 146/66 H 93 05/01/21 07:33 96 05/01/21 07:20 95 05/01/21 07:00 05/01/21 02:53 139/43 L 94 05/01/21 00:48 93
--- NOTE | 2021-05-01 12:28 | Nephrology Progress Note ---
Date of Service May 01, 2021 Assessment & Plan (1) ESRD (end stage renal disease) on dialysis: Plan: esrd on TRSat HD; admitted w/ coughing, AF/RVR >> CT suggestive of mild vol OL -HD today supplemental 2.25h tx to work for more UF, at [facility] [place] -stable chornic anemia > anemia meds on tx -daily bmp -cont renal diet w/ 1.2L FR -cont binder, renal vitamin >next HD tomorrow per routine Admission and Anticipated Discharge Date Admission Date: April 28, 2021 Subjective no overnight events; tolerated 3 L UF yesterday w/o cramp; for d/c later otoday Review of Systems Review of Systems: All systems reviewed & are unremarkable except as noted in Subjective Physical Exam Constitutional: well developed, well nourished, + frail appearing and cooperative; no acute distress Eyes: EOM intact bilaterally ENMT: Ears: no external ear abnormality Nose: no external nose abnormality Mouth: + dry oral mucous membranes Neck: no nuchal rigidity Respiratory: normal respiratory effort Auscultation: + diminished lung sounds and + crackles (bibasilar) Cardiovascular: RRR, no murmur, no edema Extremities: + AV fistula (LUE + t/b) Gastrointestinal (Abdomen): Inspection/Auscultation: normal bowel sounds Percussion/Palpation: abdomen soft; abdomen nontender Musculoskeletal: Extremities: strength 5/5 throughout Skin: no rashes, warm and dry Psychiatric: Orientation: alert and oriented x 3 Insight: good insight Judgement: good judgement Results & Data ([facility]) Vital Signs (Past 12 Hours) Vital Signs Temp Pulse Pulse Pulse Pulse Resp BP 05/01/21 11:22 37.1 C 67 05/01/21 11:04 36.7 C 60 20 05/01/21 07:33 36.8 C 63 20 143/68 H 05/01/21 07:20 59 L 18 05/01/21 07:00 59 L 05/01/21 02:53 36.8 C 67 18 05/01/21 00:48 63 16 BP Pulse Ox 05/01/21 11:22 05/01/21 11:04 146/66 H 93 05/01/21 07:33 96 05/01/21 07:20 95 05/01/21 07:00 05/01/21 02:53 139/43 L 94 05/01/21 00:48 93 Laboratory Results 04/30/21 07:53 05/01/21 05:[address] chest reviewed
[2021-05-01] MEDS: hydrALAZINE TAB 50 MG TAB PO SCH (14:31)
[2021-05-01] MEDS: lisinopril 40 MG TAB PO SCH (14:32)
[2021-05-01] MEDS: dilTIAZem HCL 120 MG CAPCR PO SCH (14:32)
--- NOTE | 2021-05-01 14:59 | Discharge Summary ---
Date of Service May 01, 2021 Admission HPI Per Admitting Provider History obtained from patient and records. Medical history is significant forchronic respiratory failure secondary to COPD on home O2, chronic diastolic heart failure, EF of 65-70%. (TTE 2021), valvular heart disease (moderate MR, mild TR, TTE 2021), PAF not on anticoagulation secondary to bleeding and patient preference as per records HTN, PVD, ESRD on HD, chronic anemia (baseline hemoglobin 8-9), DM 2 diet- controlled, ongoing tobacco abuse. Last confinement 2 weeks ago for COPD exacerbation. Patient Advair changed to Symbicort due to financial constraints. Patient with persistent junky cough symptoms following discharge. No chest pain. Occasional coughing with meals/water intake as per patient. Denies weight gain or fluid retention as she had just finished dialysis. Patient noted to be weak and tachycardic after outpatient dialysis today. Noted to be in rapid A. fib at home. At the ER, patient received Solu-Medrol, neb treatment, and cefepime. MEDICAL HISTORY: As above. SURGERIES: nasal polypectomy, cataract surgery, appendectomy, cholecystectomy, oophorectomy, hysterectomy, vascular procedures, eye surgery, FAMILY HISTORY: Diabetes, heart disease. PERSONAL AND SOCIAL HISTORY: Past tobacco abuse. No chronic intake of alcoholic beverages. 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 Admission Exam Per Admitting Provider GENERAL: Comfortable, obese, no respiratory distress SKIN: sallow, warm HEENT: Pale palpebral conjunctivae, no ptosis, moist buccal mucosa, nasal cannula in place NECK : Supple, short neck, no tenderness CHEST : Decreased breath sounds, expiratory wheezes, no tenderness HEART : Irregular, systolic murmur ABDOMEN: Some distention, nontender EXTREMITIES : Minimal LE swelling, no LE tenderness, no other conspicuous deformities noted NEUROLOGIC : Coherent, no facial asymmetry, no other gross focality Principal Diagnosis Atrial fibrillation COPD exacerbation Volume overload Discharge Exam Constitutional + well hydrated and + obese; no acute distress Eyes PERRL, conjunctivae normal, anicteric sclerae ENMT external ear and nose normal, oropharynx normal Respiratory normal respiratory effort; no respiratory distress Diminished breath sounds. On 3l/min baseline home o2 Cardiovascular Rate/Rhythm: + irregularly irregular S1 S2 +systolic murmur Gastrointestinal (Abdomen) normal bowel sounds, soft, nontender, no hepatosplenomegaly Musculoskeletal no cyanosis or clubbing, extremities motor strength 5/5 Neurologic PERRL, EOMI, accommodation nl, no face palsy, no dysarthria Psychiatric A+Ox3, euthymic affect Discharge Data Allergies Allergy/AdvReac Type Severity Reaction Status Date / Time No Known Allergies Allergy Verified 04/14/21 15:32 Consultations 04/28/21 19:49 ED Decision to Admit Stat 04/28/21 23:35 Consult Nephrology Routine Ordered Studies 04/29/21 14:21 CT chest diagnostic wo con Urgent Thyroid: Mildly enlarged and heterogeneous. Thoracic aorta: There is atherosclerotic calcification of the thoracic aorta, which is normal in caliber and demonstrates standard 3-vessel arch anatomy. Heart: The heart is enlarged noting a small pericardial effusion. The coronary arteries are densely calcified. Lungs and pleural spaces: There are small to moderate pleural effusions with dependent consolidation. Intralobular septal thickening is noted. The trachea and central airways are clear. 3 mm pulmonary and pleural-based nodules in the right middle lobe are seen on images #173 and #193. These are unchanged from 2017 and of doubtful significance. Mediastinum: There are numerous mildly enlarged mediastinal lymph nodes. A precarinal node measures 14 mm in short axis. Paratracheal nodes measure up to 11 mm in short axis. Madina: Not well assessed without IV contrast. Axillae: There is no axillary lymphadenopathy. Upper abdomen: A 3 cm cystic lesion in the spleen has been present dating back to 2017. The liver appears diffusely hyperdense which is nonspecific but can be seen in the setting of amiodarone therapy or iron overload. Skeletal structures: The skeletal structures are heterogeneously osteopenic. No lytic or blastic bony lesions are seen. Degenerative changes noted in the shoulders and right sternoclavicular joint. Mild spondylotic change is seen throughout the thoracic spine. IMPRESSION: 1. Cardiomegaly with diffuse intralobular septal thickening. This suggests congestive failure and clinical correlation will be required. 2. Small to moderate pleural effusions with dependent consolidation. This likely represents atelectasis and clinical correlation will be required 3. There are numerous mildly enlarged mediastinal lymph nodes which are nonspecific but similar to 2017. 4. The liver appears diffusely hypodense. This is a nonspecific finding but can potentially be seen with iron overload or amiodarone therapy. 5. Additional findings as above. Hospital Course (1) Acute hypoxemic respiratory failure: Acute on chronic hypoxic respiratory failure due to volume overload hx chronic respiratory failure secondary to COPD on home O2 Per patient's report, she had some breathing treatment at home after HD on day of presentation. Was evaluated by [employer] via televisit on day of presentation and was noted to be tachycardic Patient reported she felt no palpitation at the time. She denied any change in her chronic cough and exertional dyspnea Per Televisit note, patient was 86% pulse ox on home O2 and in Afib w/RVR with HR in 130s, hence the ER referral Patient denied any fevers, change in cough, vomiting CXR reported some b/l opacities likely pulm edema. ?superimposed infectious/inflammatory pneumonitis CT chest showed cardiomegaly, diffuse intralobular septal thickening, small to moderate pleural effusion with dependent consolidation likely atelectasis, mildly enlarged mediastinal LN similar to 2017 Procal trend is negative. No leukocytosis Was treated with nebs and steroids for COPD exacerbation Counselled on smoking cessation. Patient reports she has not smoked since last admission Patient had 2 sessions of HD while inpatient with removal of a total of 5.2L Patient counselled on need for fluid restriction at home, low salt diet -A. fib Chronic Afib w/RVR Currently rate controlled Continue diltiazem Not on anticoagulation secondary to bleeding and patient preference as per records -Chronic diastolic heart failure, EF of 65-70%. (TTE 2021), -Valvular heart disease (moderate MR, mild TR, TTE 2021), -Hypertension -ESRD on HD Continue lisinopril -Chronic anemia Hemoglobin at baseline -DM 2 Diet-controlled Well-controlled as of recent hemoglobin A1c of 5.1, March 2021 Total Time Total Time Spent Total Time Spent (In Minutes): 45 Total Time Includes: Examination of the Patient, Discharge Planning and Medication Reconciliation Discharge Plan Discharge Items Patient Disposition: Home - Self-Care Reason For Visit: RESP FAILURE Discharge Diagnosis: Atrial fibrillation COPD exacerbation Volume overload Condition on Discharge: Fair Activity: Resume your previous activity Non-emergency contact: Primary Care Provider, Director Health and Liability Analyst Call non-emergency contact if: you have any medication questions and your symptoms worsen Follow-up/Referrals: Noam Armando MD [Primary Care Provider] - (Date & Time 05/04/2021 11:20 AM Provider Antoni Navas MD Department Family Medicine [facility] ) Diet: Dialysis Renal, Heart Healthy and Low Sodium (2gm) Fluids: 1200ml (5 cups) Addtl Attending Provider Instructions: Mrs Rod West were brought to the hospital due to increased heart rate and low oxygen level. You were evaluated and found to have some volume overload on CT scan. You had hemodialysis. You were also treated for COPD exacerbation Please ensure you adhere to fluid restriction at home. Continue to use inhalers as prescribed. It is very important you avoid smoking completely. Please ensure follow up with your Primary Doctor, Liability Analyst and Director Health. It was a pleasure taking care of you Pending Studies at Discharge: No Stand-Alone Forms: My [facility], Smoking Cessation Medications and DC Order Prescriptions: New prednisone 20 mg Tablet 40 mg PO DAILY 1 Days Qty: 2 RF: 0 Continued ipratropium-albuterol 0.5 mg-3 mg(2.5 mg base)/3 mL Solution For Nebulization 3 ml INHALATION QID PRN (Reason: Shortness Of Breath) RF: 0 diltiazem HCl 120 mg capsule,extended release 24hr 120 mg PO DAILY RF: 0 Arabella-Tika 0.8 mg tablet 1 tab PO QAM RF: 0 hydralazine 50 mg tablet 100 mg PO BID RF: 0 ergocalciferol (vitamin D2) 50,000 unit capsule 50,000 unit PO MONTHLY RF: 0 fluticasone propionate 50 mcg/actuation [place],Suspension 2 spray INTRANASAL HS RF: 0 sevelamer carbonate 800 mg tablet See Rx Instructions .ROUTE .COMPLEX RF: 0 Incruse Ellipta 62.5 mcg/actuation Blister With Device 1 inh INHALATION QAM RF: 0 albuterol sulfate 90 mcg/actuation Hfa Aerosol Inhaler 2 puff INHALATION Q4H PRN (Reason: Wheezing) RF: 0 acetaminophen [Tylenol] 325 mg Tablet 650 mg PO Q6H PRN (Reason: Pain) RF: 0 loperamide [Imodium A-D] 2 mg Capsule 2 mg PO QID PRN (Reason: Diarrhea) RF: 0 lidocaine-prilocaine 2.5-2.5 % Cream 1 applic topical DIRECTED PRN (Reason: PRIOR TO DIALYSIS) RF: 0 prednisolone acetate 1 % Drops,Suspension 1 drp OPL DAILY RF: 0 docusate sodium [Colace] 100 mg Capsule 100 mg PO BID PRN (Reason: Constipation) RF: 0 camphor-menthol 0.5-0.5 % Lotion 1 applic TOPICAL DIRECTED PRN (Reason: Itching) RF: 0 lisinopril 40 mg Tablet 40 mg PO DAILY RF: 0 Procrit 10,000 unit/mL Solution 0 unit IV DIRECTED RF: 0 valacyclovir 1 gram tablet 1,000 mg PO QAM RF: 0 budesonide-formoterol [Symbicort] 160-4.5 mcg/actuation HFA aerosol inhaler 2 inh inhalation BID Qty: 10.2 RF: 0 Discharge Orders: Discharge Order (Routine); Ordered 05/01/21 Ordered By: Dodie Ku Admission Data Admit Date/Time: 04/28/21 21:30 Attending Provider: Dodie Ku I. Admit Provider: Fady Wong Primary Care Provider: Noam Armando Other Providers: Fady Wong ; Jessica Reed ; Charli Rodriguez Elissa R. ; Dee Dee Henley Japheth E. ; Kayleigh Marie ; Owen Chun [facility] Other Interventions: Discharge Summary Assessment (RN) Last Done: 05/01/21 16:28
== END 2021-05-01 17:39 | disposition home health service (06) | DRG 640 ==
LOC: ED 16:56 → EDINP 21:30 → 2N 04-29 00:05

== ENCOUNTER 2022-03-13 10:03 | Inpatient (IN) ==
[2022-03-13] MEDS ORDERED: CEFEPIME 2,000 MG/20 ML VIAL IV STA (10:38)
[2022-03-13] MEDS ORDERED: STAT IV Infusion **Titration per Protocol STA (10:38)
[2022-03-13] MEDS ORDERED: dilTIAZem HCl 5 MG/ML 5 ML VIAL IV STA (10:38)
--- NOTE | 2022-03-13 10:59 | XRay Report ---
SINGLE VIEW CHEST CLINICAL HISTORY: Dyspnea. FINDINGS: An AP, portable, upright chest radiograph is compared to study dated 01/25/2022 and correla henry with chest CT dated 04/29/2021. The examination is degraded by portable technique, apical lordotic positioning, and patient rotation. The heart is enlarged noting atherosclerotic calcification of the thoracic aorta. The pulmonary vasculature is noncongested. Emphysema and chronic interstitial thicke mark is similar to previous. There is left basilar consolidation and a small left pleural effusion. S carring/atelectasis is seen at the right lung base. No pneumothorax is seen. The skeletal structures are osteopenic. The bony thorax is grossly intact. IMPRESSION: 1. Cardiomegaly and emphysema. 2. Left basilar consolidation and small left pleural effusion. This could represent atelectasis versu s pneumonia/aspiration pneumonitis. Clinical correlation will be required and radiographic follow-up to resolution is recommended. ACT 112: Negative or not required by law. Electronically signed by: Luigi García M.D. 03/13/2022 10:56 AM
--- NOTE | 2022-03-13 11:06 | Emergency Department Note ---
Impression & Plan Atrial fibrillation with rapid ventricular response, SOB (shortness of breath), Pneumonia, Weakness, Hypotension ED Provider Note NAME: VALERIA URIAS AGE: 77 SEX: F : 1945 ARRIVES VIA: Ambulance INFORMANT: [Patient] ED PROVIDER(S): [Luigi Jacobson MD] CHIEF COMPLAINT: Weakness, short of breath, low blood pressure HISTORY OF PRESENT ILLNESS: The patient is a 77-year-old female who presents to the ER from dialysis. She has had a cough and some shortness of breath for 4 days. At dialysis, about three quarters of the way through her treatment, her blood pressure was 80/40, she was weak and her O2 saturation was 80% on room air. She was sent to the hospital. The patient does use 4 L of oxygen on a regular basis. She carries a history of A. fib. The patient feels somewhat better now. As per our nursing staff, her O2 saturation is adequate on her typical 4 L. Her blood pressure has improved. REVIEW OF SYSTEMS: See HPI for pertinent positives and negatives. A total of ten systems were reviewed and were otherwise negative. PMHx/PSHx: See Below SOCIAL HISTORY: See Below. PHYSICAL EXAM: GENERAL: Patient is in no acute distress. HEENT: No acute trauma, normocephalic atraumatic, mucous membranes moist, no nasal congestion, no scleral icterus. NECK: No stridor, no adenopathy, no meningismus, trachea is midline. LUNGS: Crackles heard in both lung geller. No obvious respiratory distress, breath sounds are diminished bilaterally. HEART: Subtle systolic murmur, irregular rhythm, mildly tachycardic. ABDOMEN: Soft, nontender, bowel sounds positive, no peritonitis. EXTREMITIES: No cyanosis, full range of motion of all the joints without pain or difficulty, no signs for acute trauma. NEUROLOGIC: Oriented x 3, no acute motor or sensory deficits, no focal weakness. SKIN: No rash, no jaundice, no diaphoresis. DIFFERENTIAL DIAGNOSIS: Infection, dehydration, metabolic abnormality, RSV, COVID-19, influenza, hypo/hyperglycemia, electrolyte disturbance, anemia, hypoxia, CHF, cardiac sources, dysrhythmia, intracerebral event, toxicologic issues, stroke, TIA, as well as other pathologies. EMERGENCY DEPARTMENT COURSE/PROCEDURES: ECG: Indication was shortness of breath. The ECG shows a rapid atrial fibrillation with a rate of 126. There is diffuse nonspecific ST change. There is no ST elevation, no PVCs. The QTC is 518. Continuous Cardiac Monitoring: An order was placed for continuous cardiac monitoring. The monitor shows a rate of 117 with atrial fibrillation. Critical Care Note: I have personally spent 43 minutes of critical care time in the direct management of this patient. This includes bedside care, interpretation of diagnostic studies, and testing, discussion with consultants, patient, and family members, and other required patient management activities. This 43 minutes is in excess of all separately billable procedures. MEDICAL DECISION MAKING: There is no leukocytosis. An anemia was noted but this is baseline looking back at previous testing. There was a normal platelet count. No coagulopathy. Potassium slightly low at 3.1, not in need of emergent correction. Creatinine was high consistent with her dialysis need. Lactic acid level was not elevated making severe sepsis less likely. No concerning liver enzyme elevation. ECG shows a rapid A. fib, no obvious acute ST elevation. Cardiac troponin was somewhat elevated, this elevation could be from mismatch or potentially, cardiac ischemia. Respiratory bio fire was completely negative. Chest film shows a left lower lung pneumonia. On exam, the patient appeared tired, she was not hypotensive when first seen here in the ED although, she had been hypotensive prior to arrival. Patient received IV cefepime as antibiotic coverage. She was given an diltiazem bolus IV and placed on a diltiazem drip. The patient is in need of a hospital stay. She has been short of breath, weak. She was hypotensive prior to arrival. She presents in rapid A. fib and appears to have pneumonia. I spoke with the patient, I talked to case management, the on-call hospitalist was consulted. Past Med/Surg History Medical History Adrenal adenoma Anemia of chronic disease AV fistula LUE Chronic respiratory failure with hypoxia, on home O2 therapy COPD, moderate On 08/19/15 09:47 Mare Whyte wrote "2L O2 at home" Diastolic CHF DM type 2 (diabetes mellitus, type 2) IDDM Dyslipidemia ESRD (end stage renal disease) on dialysis follows with Dr. Reed; Hillary Corley, [facility] - [facility] (since 02/2013) GI bleed hx H/O cardiovascular stress test "05/2013 - negative for ischemia" History of colon polyps History of GI bleed History of Helicobacter pylori infection HTN (hypertension) Moderate mitral regurgitation "moderate to severe on 12/2015 echo" On 01/13/16 15:17 Blanca Chan wrote "echo 06/2015 - calcified mitral valve, moderate MR" Obesity On home oxygen therapy 3 LPM cont Osteoarthritis Pancreatic cyst Paroxysmal atrial fibrillation Psoriasis Renal cyst Tobacco use Surgical History H/O colonoscopy "2005, hyperplastic polyps repeat in 10 years " H/O nasal polypectomy History of cataract surgery History of intestinal surgery History of surgery AVF creation S/P appendectomy "1971" S/P cholecystectomy "1971" S/P left oophorectomy "1981" S/P ASH (total abdominal hysterectomy) "For Fibroids " Family History Father Myocardial infarction, Onset Age: 64 Mother , 87 Alzheimer disease Other No family history of adverse response to anesthesia Social History Smoking Status: Former smoker Tobacco Type: Cigarettes Cigarettes Per Day: 3; Second Hand Exposure: No; Hx Alcohol Use: No Hx Substance Use: No Preferred Language: Tajik Communication Ability: Effective Azure Architect 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 Beliefs That Will Affect Care: None marital status: / Current Living Situation: Alone current occupational status: retired Other Information That Helps Us Care for You: No Feels Safe at Home: Yes Safety Concerns: Feels Safe At This Time Assistive Devices: Oxygen - Continuous and Walker Allergies Allergies Allergy/AdvReac Type Severity Reaction Status Date / Time No Known Allergies Allergy Verified 01/25/22 18:22 Home Meds Home Medications Medication Instructions Recorded Confirmed ergocalciferol (vitamin D2) 1,250 50,000 unit PO MONTHLY 09/26/18 03/13/22 mcg (50,000 unit) capsule hydralazine 50 mg tablet 100 mg PO BID 09/26/18 03/13/22 ipratropium 0.5 mg-albuterol 3 mg 3 ml inhalation QID PRN Shortness 09/26/18 03/13/22 (2.5 mg base)/3 mL nebulization Of Breath soln vitamin B complex-vitamin C-folic 1 tab PO QAM 09/26/18 03/13/22 acid 0.8 mg tablet (Arabella-Tika) fluticasone propionate 50 2 spray intranasal HS 01/18/19 03/13/22 mcg/actuation nasal spray,suspension sevelamer carbonate 800 mg tablet 2,400 mg PO TIDM 01/18/19 03/13/22 albuterol sulfate 90 mcg/actuation 2 puff inhalation Q4H PRN Wheezing 04/05/19 03/13/22 aerosol inhaler acetaminophen 325 mg tablet 650 mg PO Q6H PRN Pain 04/14/21 03/13/22 (Tylenol) camphor-menthol 0.5 %-0.5 % lotion 1 applic topical DIRECTED PRN 04/14/21 03/13/22 Itching docusate sodium 100 mg capsule 100 mg PO BID PRN Constipation 04/14/21 03/13/22 (Colace) epoetin gabriel 10,000 unit/mL 0 unit IV DIRECTED 04/14/21 03/13/22 injection solution (Procrit) lidocaine-prilocaine 2.5 %-2.5 % 1 applic topical DIRECTED PRN 04/14/21 03/13/22 topical cream PRIOR TO DIALYSIS lisinopril 40 mg tablet 40 mg PO QAM 04/14/21 03/13/22 loperamide 2 mg capsule (Imodium 2 mg PO QID PRN Diarrhea 04/14/21 03/13/22 A-D) valacyclovir 1 gram tablet 1,000 mg PO QAM 04/14/21 03/13/22 fluorometholone 0.1 % eye 1 drp OPL QA 01/25/22 03/13/22 drops,suspension fluticasone 250 mcg-salmeterol 50 1 inh inhalation BID 01/25/22 03/13/22 mcg/dose blistr powdr for inhalation (Advair Diskus) diltiazem HCl 180 mg 180 mg PO DAILY 03/13/22 03/13/22 capsule,extended release 24 hr Results & Data (ED) Vital Signs Vital Signs - 24 hr 03/13/22 10:11 03/13/22 10:11 03/13/22 10:20 Temperature 36.7 C Temperature Source Oral Pulse Rate 117 H 112 H 98 H Pulse Rate from SpO2 Sensor 108 H 103 H Respiratory Rate 20 24 20 Respiratory Effort / Characteristics Non-Labored Spontaneous Respiratory Depth Normal Respiratory Pattern Regular Blood Pressure 140/67 Blood Pressure Mean 91 Blood Pressure Position Sitting Pulse Oximetry 99 100 98 Oxygen Delivery Method Room Air Nasal Cannula Nasal Cannula Oxygen Flow Rate 4 4 Sepsis Recent Fever Within 48 Hours No Sepsis New/Unexplained Change in Mental Status No Sepsis Action Taken by Nursing No Action Required 03/13/22 10:30 03/13/22 10:40 03/13/22 10:50 Temperature Temperature Source Pulse Rate 118 H 98 H 115 H Pulse Rate from SpO2 Sensor 120 H 115 H Respiratory Rate 22 21 25 H Respiratory Effort / Characteristics Respiratory Depth Respiratory Pattern Blood Pressure Blood Pressure Mean Blood Pressure Position Pulse Oximetry 100 100 Oxygen Delivery Method Nasal Cannula Nasal Cannula Nasal Cannula Oxygen Flow Rate 4 4 4 Sepsis Recent Fever Within 48 Hours Sepsis New/Unexplained Change in Mental Status Sepsis Action Taken by Nursing 03/13/22 10:58 03/13/22 10:58 03/13/22 11:00 Temperature Temperature Source Pulse Rate 95 H Pulse Rate from SpO2 Sensor 101 H Respiratory Rate 32 H Respiratory Effort / Characteristics Respiratory Depth Respiratory Pattern Blood Pressure 149/68 H 134/66 Blood Pressure Mean 95 88 Blood Pressure Position Pulse Oximetry 100 Oxygen Delivery Method Nasal Cannula Nasal Cannula Nasal Cannula Oxygen Flow Rate 4 4 4 Sepsis Recent Fever Within 48 Hours Sepsis New/Unexplained Change in Mental Status Sepsis Action Taken by Nursing 03/13/22 11:00 03/13/22 11:10 03/13/22 11:20 Temperature Temperature Source Pulse Rate 106 H 109 H 107 H Pulse Rate from SpO2 Sensor 113 H 102 H 105 H Respiratory Rate 25 H 18 21 Respiratory Effort / Characteristics Respiratory Depth Respiratory Pattern Blood Pressure Blood Pressure Mean Blood Pressure Position Pulse Oximetry 100 100 97 Oxygen Delivery Method Nasal Cannula Oxygen Flow Rate 4 Sepsis Recent Fever Within 48 Hours Sepsis New/Unexplained Change in Mental Status Sepsis Action Taken by Nursing 03/13/22 11:30 03/13/22 11:30 03/13/22 11:40 Temperature Temperature Source Pulse Rate 103 H 101 H Pulse Rate from SpO2 Sensor 108 H 94 H Respiratory Rate 24 21 Respiratory Effort / Characteristics Respiratory Depth Respiratory Pattern Blood Pressure 113/75 Blood Pressure Mean 87 Blood Pressure Position Pulse Oximetry 96 95 Oxygen Delivery Method Oxygen Flow Rate Sepsis Recent Fever Within 48 Hours Sepsis New/Unexplained Change in Mental Status Sepsis Action Taken by Nursing 03/13/22 11:45 03/13/22 12:00 03/13/22 12:01 Temperature Temperature Source Pulse Rate 127 H 109 H 111 H Pulse Rate from SpO2 Sensor 113 H 127 H 113 H Respiratory Rate 16 13 20 Respiratory Effort / Characteristics Respiratory Depth Respiratory Pattern Blood Pressure Blood Pressure Mean Blood Pressure Position Pulse Oximetry 98 97 99 Oxygen Delivery Method Oxygen Flow Rate Sepsis Recent Fever Within 48 Hours Sepsis New/Unexplained Change in Mental Status Sepsis Action Taken by Nursing 03/13/22 12:01 Temperature Temperature Source Pulse Rate Pulse Rate from SpO2 Sensor Respiratory Rate Respiratory Effort / Characteristics Respiratory Depth Respiratory Pattern Blood Pressure 124/85 Blood Pressure Mean 98 Blood Pressure Position Pulse Oximetry Oxygen Delivery Method Oxygen Flow Rate Sepsis Recent Fever Within 48 Hours Sepsis New/Unexplained Change in Mental Status Sepsis Action Taken by Custodial Medications Current Medication List: was personally reviewed by me Laboratory Data Attestation: I reviewed the patient's lab results. Result diagrams: 03/13/22 10:20 03/13/22 10:20 Lab Results 03/13/22 03/13/22 03/13/22 Range/Units 10:20 10:20 10:20 WBC 4.85 (4.8-10.8) K/ul RBC 2.45 L (3.93-5.22) M/uL Hgb 9.8 L (12.0-16.0) g/dl Hct 29.3 L (34.1-44.9) % MCV 119.6 H (80.0-100.0) fL MCH 40.0 H (25.0-34.0) pg MCHC 33.4 (32.0-36.0) g/dL RDW Std Deviation 59.7 H (36.4-46.3) fL RDW Coeff of Fior 13.5 (11.5-14.5) % Plt Count 136 (130-400) K/uL MPV 10.8 (9.4-12.3) fL Immature Gran % (Auto) 0.4 % Neut % (Auto) 79.2 % Lymph % (Auto) 12.0 % Culberson % (Auto) 7.2 % Eos % (Auto) 0.6 % Baso % (Auto) 0.6 % Neut # (Auto) 3.84 (1.4-6.5) K/uL Lymph # (Auto) 0.58 L (1.2-3.4) K/uL [place]bers[place] # (Auto) 0.35 (0.24-0.82) K/uL Eos # (Auto) 0.03 (0-0.50) K/uL Baso # (Auto) 0.03 (0-0.2) K/uL Immature Gran # (Auto) 0.02 (0.00-0.02) K/uL Polychromasia 1+ Macrocytosis Present PT 10.3 (9.0-12.0) Seconds INR 1.0 (0.9-1.1) APTT 22.3 (21.0-31.0) Seconds PTT Ratio 0.8 Sodium 143 (136-145) mmol/L Potassium 3.1 L (3.5-5.1) mmol/L Chloride 103 (98-107) mmol/L Carbon Dioxide 28 (21-32) mmol/L Anion Gap 12 H (3-11) BUN 16 (6-23) mg/dl Creatinine 4.41 H (0.6-1.2) mg/dl Est Cr Clr Drug Dosing 12.2 ml/min Est GFR ( Amer) 10.6 ml/min Est GFR (Non-Af Amer) 9.2 ml/min BUN/Creatinine Ratio 3.6 L (10-20) Glucose 145 H (70-99(Fasting)) mg/dl Lactate (0.4-2.0) mmol/L Calcium 9.0 (8.5-10.1) mg/dl Magnesium 1.9 (1.7-2.4) mg/dl Total Bilirubin 0.5 (0.2-1.0) mg/dl AST 16 (13-39) U/L ALT 13 (7-52) U/L Alkaline Phosphatase 67 (34-104) U/L Troponin I High Sens 16.7 H (0-14) pg/ml Total Protein 6.1 (6.0-8.3) gm/dl Albumin 3.5 (3.4-5.0) gm/dl Globulin 2.6 (2.5-4.0) gm/dl Albumin/Globulin Ratio 1.3 (0.9-2) Procalcitonin (0-0.5) ng/ml Adenovirus (PCR) (NotDetected) B. pertussis DNA (PCR) (NotDetected) B.parapertussis DNA PCR (NotDetected) C. pneumoniae DNA (PCR) (NotDetected) Coronavirus OC43 (PCR) (NotDetected) Coronavirus HKU1 (PCR) (NotDetected) Coronavirus 229E (PCR) (NotDetected) SARS-CoV-2 (PCR) (NotDetected) Coronavirus NL63 (PCR) (NotDetected) Human Metapneumovir PCR (NotDetected) Influenza Type A (PCR) (NotDetected) Influenza Type B (PCR) (NotDetected) M. pneumoniae (PCR) (NotDetected) Parainfluenza 1 (PCR) (NotDetected) Parainfluenza 2 (PCR) (NotDetected) Parainfluenza 3 (PCR) (NotDetected) Parainfluenza 4 (PCR) (NotDetected) RSV (PCR) (NotDetected) Entero/Rhino (PCR) (NotDetected) 03/13/22 03/13/22 03/13/22 Range/Units 10:20 11:15 11:20 WBC (4.8-10.8) K/ul RBC (3.93-5.22) M/uL Hgb (12.0-16.0) g/dl Hct (34.1-44.9) % MCV (80.0-100.0) fL MCH (25.0-34.0) pg MCHC (32.0-36.0) g/dL RDW Std Deviation (36.4-46.3) fL RDW Coeff of Fior (11.5-14.5) % Plt Count (130-400) K/uL MPV (9.4-12.3) fL Immature Gran % (Auto) % Neut % (Auto) % Lymph % (Auto) % Culberson % (Auto) % Eos % (Auto) % Baso % (Auto) % Neut # (Auto) (1.4-6.5) K/uL Lymph # (Auto) (1.2-3.4) K/uL Culberson # (Auto) (0.24-0.82) K/uL Eos # (Auto) (0-0.50) K/uL Baso # (Auto) (0-0.2) K/uL Immature Gran # (Auto) (0.00-0.02) K/uL Polychromasia Macrocytosis PT (9.0-12.0) Seconds INR (0.9-1.1) APTT (21.0-31.0) Seconds PTT Ratio Sodium (136-145) mmol/L Potassium (3.5-5.1) mmol/L Chloride (98-107) mmol/L Carbon Dioxide (21-32) mmol/L Anion Gap (3-11) BUN (6-23) mg/dl Creatinine (0.6-1.2) mg/dl Est Cr Clr Drug Dosing ml/min Est GFR ( Amer) ml/min Est GFR (Non-Af Amer) ml/min BUN/Creatinine Ratio (10-20) Glucose (70-99(Fasting)) mg/dl Lactate 1.0 (0.4-2.0) mmol/L Calcium (8.5-10.1) mg/dl Magnesium (1.7-2.4) mg/dl Total Bilirubin (0.2-1.0) mg/dl AST (13-39) U/L ALT (7-52) U/L Alkaline Phosphatase (34-104) U/L Troponin I High Sens (0-14) pg/ml Total Protein (6.0-8.3) gm/dl Albumin (3.4-5.0) gm/dl Globulin (2.5-4.0) gm/dl Albumin/Globulin Ratio (0.9-2) Procalcitonin 0.20 (0-0.5) ng/ml Adenovirus (PCR) Not Detected (NotDetected) B. pertussis DNA (PCR) Not Detected (NotDetected) B.parapertussis DNA PCR Not Detected (NotDetected) C. pneumoniae DNA (PCR) Not Detected (NotDetected) Coronavirus OC43 (PCR) Not Detected (NotDetected) Coronavirus HKU1 (PCR) Not Detected (NotDetected) Coronavirus 229E (PCR) Not Detected (NotDetected) SARS-CoV-2 (PCR) Not Detected (NotDetected) Coronavirus NL63 (PCR) Not Detected (NotDetected) Human Metapneumovir PCR Not Detected (NotDetected) Influenza Type A (PCR) Not Detected (NotDetected) Influenza Type B (PCR) Not Detected (NotDetected) M. pneumoniae (PCR) Not Detected (NotDetected) Parainfluenza 1 (PCR) Not Detected (NotDetected) Parainfluenza 2 (PCR) Not Detected (NotDetected) Parainfluenza 3 (PCR) Not Detected (NotDetected) Parainfluenza 4 (PCR) Not Detected (NotDetected) RSV (PCR) Not Detected (NotDetected) Entero/Rhino (PCR) Not Detected (NotDetected) Administered Medications Albuterol (Albut/Ipratrop 3mg/0.5mg Neb 3 Ml Vial) 3 ml NEB Q4R MARY; Protocol Stop: 04/12/22 14:59 Last Admin: 03/13/22 15:33 Dose: 3 ml Documented By: CHARITY Diltiazem HCl 125 mg/ Dextrose 125 mls @ 10 mls/hr IV .[id number] MARY; Protocol Stop: 04/12/22 10:44 Last Titration: 03/13/22 12:32 Dose: 10 mg/hr, 10 mls/hr Documented By: KALI Co-signed By: YASMANI Admin: 03/13/22 11:57 Dose: 5 mg/hr, 5 mls/hr Documented By: KALI Co-signed By: YASMANI Doxycycline Hyclate 100 mg/ (Dextrose) 110 mls @ 50 mls/hr IV Q12H MARY Stop: 03/20/22 14:59 Last Admin: 03/13/22 16:26 Dose: 50 mls/hr Documented By: LIANG Ceftriaxone Sodium 2,000 mg/ (Dextrose) 70 mls @ 140 mls/hr IV Q24H MARY; Protocol Stop: 03/20/22 13:59 Last Infusion: 03/13/22 16:26 Dose: 0 mls/hr Documented By: Admin: 03/13/22 15:33 Dose: 140 mls/hr Documented By: LIANG Heparin Sodium/Dextrose (Heparin Sodium/Dextrose) 25,000 units in 500 mls @ 0.02 mls/hr IV .Q24H MARY; Protocol Stop: 04/12/22 16:44 Last Admin: 03/13/22 17:22 Dose: 850 units/hr, 17 mls/hr Documented By: LIANG Co-signed By: HONORIO Sevelamer HCl (Sevelamer Hcl 800 Mg Tablet) 2,400 mg PO TIDM MARY Stop: 04/12/22 16:59 Last Admin: 03/13/22 15:33 Dose: 2,400 mg Documented By: LIANG Discontinued Medications Diltiazem HCl (Diltiazem Hcl 5 Mg/Ml 5 Ml Vial) 10 mg IV NOW STA Stop: 03/13/22 10:39 Last Admin: 03/13/22 10:57 Dose: 10 mg Documented By: YANETH Co-signed By: KALI Heparin Sodium (Porcine) (Heparin Sod 5,000 Unit/0.5 Ml Vial) 5,000 units SQ Q8 MARY Stop: 04/12/22 13:59 Last Admin: 03/13/22 15:33 Dose: 5,000 units Documented By: LIANG Heparin Sodium/Dextrose (Heparin Iv Adult Wt-Based Low-Dose *No* Bolus Protocol) 1 each IV ONE STA; Protocol Stop: 03/13/22 16:56 Last Admin: 03/13/22 17:22 Dose: 1 each Documented By: LIANG Heparin Sodium/Dextrose (Heparin 49406 Unit/500 Ml D5w) Confirm Administered Dose 25,000 units IV .STK-MED ONE Stop: 03/13/22 17:13 Last Admin: 03/13/22 17:16 Dose: 850 units Documented By: LIANG Co-signed By: HONORIO Cefepime HCl (Maxipime) 2,000 mg in 20 mls @ 5 mls/min IV NOW STA; Protocol Stop: 03/13/22 10:41 Last Admin: 03/13/22 11:57 Dose: 5 mls/min Documented By: KALI Miscellaneous (Stat Iv Infusion Titration Per Protocol) 1 each N/A NOW STA Stop: 03/13/22 10:39 Last Admin: 03/13/22 10:53 Dose: Not Given Documented By: YANETH Potassium Chloride (Potassium Chloride Crtab 20 Meq Tabcr) 40 meq PO ONE ONE Stop: 03/13/22 16:46 Last Admin: 03/13/22 17:17 Dose: 40 meq Documented By: LIANG Imaging Data Radiologist's Impression: Chest X-Ray 03/13/22 10:38 SINGLE VIEW CHEST CLINICAL HISTORY: Dyspnea. FINDINGS: An AP, portable, upright chest radiograph is compared to study dated 01/25/2022 and correlated with chest CT dated 04/29/2021. The examination is degraded by portable technique, apical lordotic positioning, and patient rotation. The heart is enlarged noting atherosclerotic calcification of the thoracic aorta. The pulmonary vasculature is noncongested. Emphysema and chronic interstitial thickening is similar to previous. There is left basilar consolidation and a small left pleural effusion. Scarring/atelectasis is seen at the right lung base. No pneumothorax is seen. The skeletal structures are osteopenic. The bony thorax is grossly intact. IMPRESSION: 1. Cardiomegaly and emphysema. 2. Left basilar consolidation and small left pleural effusion. This could represent atelectasis versus pneumonia/aspiration pneumonitis. Clinical correlation will be required and radiographic follow-up to resolution is recommended. ACT 112: Negative or not required by law. Electronically signed by: Luigi García M.D. 03/13/2022 10:56 AM Discharge Plan Visit Data Chief Complaint: Illness ED Provider: Luigi Jacobson Discharge Problem: Atrial fibrillation with rapid ventricular response, SOB (shortness of breath), Pneumonia, Weakness, Hypotension Patient Disposition: Admitted As Inpatient Condition: Fair Discharge Instructions Interventions: ED Discharge Assessment Last Done: 03/13/22 13:26
[2022-03-13 11:13] LABS: Basophils # (auto) 0.03 K/uL (0-0.2); Basophils % (auto) 0.6 %; Eosinophils # (auto) 0.03 K/uL (0-0.50); Eosinophils % (auto) 0.6 %; Hematocrit (blood only) 29.3 % (34.1-44.9); Hemoglobin 9.8 g/dl (12.0-16.0); Immature Granulocytes # (auto) 0.02 K/uL (0.00-0.02); Immature Granulocytes % (auto) 0.4 %; Lymphocytes # (auto) 0.58 K/uL (1.2-3.4); Mean Corpuscular Hgb Conc 33.4 g/dL (32.0-36.0); Mean Corpuscular Volume 119.6 fL (80.0-100.0); Mean Platelet Volume 10.8 fL (9.4-12.3); Monocytes # (auto) 0.35 K/uL (0.24-0.82); Monocytes % (auto) 7.2 %; Neutrophils # (auto) 3.84 K/uL (1.4-6.5); Neutrophils % (auto) 79.2 %; Platelet Count 136 K/uL (130-400); RDW Coefficient of Variation 13.5 % (11.5-14.5); RDW Standard Deviation 59.7 fL (36.4-46.3); Red Blood Count 2.45 M/uL (3.93-5.22); White Blood Count 4.85 K/ul (4.8-10.8)
[2022-03-13 11:27] LABS: Partial Thromboplastin Ratio 0.8; Partial Thromboplastin Time 22.3 Seconds (21.0-31.0); Prothrombin Time 10.3 Seconds (9.0-12.0)
[2022-03-13 11:29] LABS: Albumin Globulin Ratio 1.3 (0.9-2); Albumin Level 3.5 gm/dl (3.4-5.0); BUN Creatinine Ratio 3.6 (10-20); Bilirubin,Total 0.5 mg/dl (0.2-1.0); Creatinine Clr Calc Pharmacy 12.2 ml/min; Est GFR (African American) 10.6 ml/min; Est GFR (Non-African American) 9.2 ml/min; Globulin 2.6 gm/dl (2.5-4.0); Magnesium 1.9 mg/dl (1.7-2.4); Potassium 3.1 mmol/L (3.5-5.1); Total Protein 6.1 gm/dl (6.0-8.3)
[2022-03-13 11:32] LABS: Macrocytosis Present; Polychromasia 1+
[2022-03-13 11:42] LABS: Troponin I High Sensitivity 16.7 pg/ml (0-14)
[2022-03-13] MEDS: dilTIAZem HCL 125 MG in DEXTROSE 5% 100 ML IV SCH ×2 (11:57→23:12)
[2022-03-13 12:30] LABS: Adenovirus PCR Not Detected (NotDetected); Bordetella parapertussis PCR Not Detected (NotDetected); Bordetella pertussis PCR Not Detected (NotDetected); Chlamydia pneumoniae PCR Not Detected (NotDetected); Coronavirus 229E PCR Not Detected (NotDetected); Coronavirus CoV-2 (COVID19)PCR Not Detected (NotDetected); Coronavirus HKU1 PCR Not Detected (NotDetected); Coronavirus NL63 PCR Not Detected (NotDetected); Coronavirus OC43PCR Not Detected (NotDetected); Human Metapneumovirus PCR Not Detected (NotDetected); Influenza A PCR Not Detected (NotDetected); Influenza B PCR Not Detected (NotDetected); Mycoplasma pneumoniae PCR Not Detected (NotDetected); Parainfluenza Virus 1 PCR Not Detected (NotDetected); Parainfluenza Virus 2 PCR Not Detected (NotDetected); Parainfluenza Virus 3 PCR Not Detected (NotDetected); Parainfluenza Virus 4 PCR Not Detected (NotDetected); Respiratory Syncytial VirusPCR Not Detected (NotDetected); Rhinovirus/Enterovirus PCR Not Detected (NotDetected)
[2022-03-13] MEDS ORDERED: DOCUSATE SODIUM 100 MG CAP PO PRN (13:43)
[2022-03-13] MEDS ORDERED: ACETAMINOPHEN 325 MG TAB PO PRN (13:43)
[2022-03-13] MEDS ORDERED: HEPARIN SOD 5,000 UNIT/0.5 ML VIAL SQ SCH (14:00)
[2022-03-13] MEDS ORDERED: cefTRIAXone SODIUM 1,000 MG in DEXTROSE 5% AD-VAN 50 ML IV SCH (15:00)
[2022-03-13] MEDS: SEVELAMER HCL 800 MG TABLET PO SCH (15:33)
[2022-03-13] MEDS: ALBUT/IPRATROP 3MG/0.5MG NEB 3 ML VIAL NEB SCH ×3 (15:33→22:58)
[2022-03-13] MEDS: cefTRIAXone SODIUM 2,000 MG in DEXTROSE 5% 50 ML IV SCH (15:33)
[2022-03-13] MEDS: DOXYCYCLINE HYCLATE 100 MG in DEXTROSE 5% 100 ML IV SCH (16:26)
--- NOTE | 2022-03-13 16:35 | History & Physical Report ---
Date of Service March 13, 2022 Assessment & Plan (1) Atrial fibrillation with rapid ventricular response: Plan: Admit to tele Patient presenting from dialysis for worsening cough and shortness of breath. In the ED, found to be in atrial fibrillation with RVR Patient with history of paroxysmal A. fib, typically rate controlled on diltiazem. Not anticoagulated due to previous bleeding issues and patient preference. In the ED, patient received diltiazem 10 mg IV bolus and placed on a drip, patient has subsequently converted back to NSR Discussed with cardiology, will leave patient on diltiazem drip overnight Given rising troponin, will start IV heparin low-dose without a bolus -no recent bleeding issues noted (2) Elevated troponin: Plan: HS Trop 16.7 --> 103.5 Patient denies chest pain Admitting EKG shows A. fib with RVR with ST depressions in the anterior leads. Suspect tachycardia induced. Will obtain repeat EKG. Continue to trend troponin Resting echo (3) Pneumonia: (4) COPD, moderate: (5) Chronic respiratory failure with hypoxia: Plan: CXR shows left basilar consolidation consistent with possible pneumonia Afebrile, no leukocytosis Respiratory viral panel negative S/p cefepime in the ED; will continue with IV ceftriaxone and IV doxycycline 2/2 prolonged QTC Saturating well on chronic 3.5L O2 No wheezing on exam, will hold on steroids for now Pulmonary toilet with nebs, Mucinex, incentive spirometer, flutter valve (6) Hypokalemia: Plan: K+ 3.1, replace, follow BMP (7) Prolonged QT interval: Plan: Admitting EKG shows QTC 512 Follow EKG, avoid QTC prolonging agents (8) ESRD (end stage renal disease) on dialysis: Plan: HD Tuesday, , Tuesday Nephrology consult (9) HTN (hypertension): Plan: Continue hydralazine and lisinopril (10) Diastolic CHF: Plan: Volume managed with dialysis DVT prophylaxis On IV heparin as above Plan 77-year-old lady with PMH of T2DM with CKD on HD [TuThSa], HLD, secondary hyperparathyroidism of renal origin, COPD on 3 L oxygen at home, paroxysmal A. fib not anticoagulated due to prior bleeding issues and patient preference, HTN, anemia of CKD, general osteoarthritis presented to ED 03/13 from dialysis center due to increased heart rate chcf through dialysis, patient was noted to be hypotensive. Patient also reports ongoing cough for 4 to 5 days prior to arrival, reports clear sputum, reports having all vaccines against COVID, denies palpitation or headache or dizziness or chest pain. Patient denies any problems swallowing or any incidence of choking on food. Patient reports smoking 2 to 3 cigarettes/day, patient has been cutting down since 1 year, prior to that patient was smoking 1 packs a day since age 18. P atient denies any use of alcohol or recreational drugs. Is full code. BENJY is her daughter Delphine per patient. Admitting labs reviewed, hemoglobin at her baseline, potassium 3.1 and magnesium 1.9. Use potassium supplement sparingly due to hemodialysis dependence, can use 20 mEq p.o. today. Admitting troponin 16.7, up trended to 103.5, patient with no chest pain, admitting EKG with A. fib RVR with heart rate 126, trend troponins/echo/cardiology consult. Patient was started on Cardizem drip, cardiology aware, plan to continue Cardizem drip through the night. Admitting CXR with left basilar consolidation and small left pleural effusion, WBC WNL, Pro-Gery negative, patient afebrile, continue with supportive management for cough and atb for possible pna. Assessment and plan: Troponin elevation/A. fib RVR--- Cardizem drip, heparin drip with low-dose without bolus, cardiology consult, trend troponins, telemetry monitoring. Cough/possible pna: CXR w/ left basal consolidation, supportive management, Pro-Grey negative, WBC WNL, temperature normal. follow admitting blood culture. ESRD on hemodialysis: Nephrology consult DVT prophylaxis: Patient on heparin drip Full code On examination: GENERAL: Alert and oriented x3. NAD, on 4L NC O2, Appears ill/weak/frail. HEENT: No pallor, no icterus. Pupils equal, round and reactive to light. Oral mucosa moist. NECK: No JVD, no neck masses. HEART: S1 and S2 heard. Irregular, HR in 110s. No murmur, no gallop. RESPIRATORY SYSTEM: Normal AP diameter. No accessory muscle use. No wheezing, rt base crackles noted. ABDOMEN: Soft, bowel sounds present, nontender, no distention. CENTRAL NERVOUS SYSTEM: No facial droop. Speech is clear. Obeys simple commands. Moves extremities. EXTREMITIES: trace ble edema, no erythema seen. I have seen and examined the patient and have discussed the case with the provider above. I agree with the assessment and plan as stated. Admission and Anticipated Discharge Date Admission Date: March 13, 2022 History of Present Illness Chief Complaint: Cough, shortness of breath Primary Care Provider: Noam Armando MD 77-year-old female with PMH diet-controlled DM type II, dyslipidemia, oxygen dependent COPD, paroxysmal atrial fibrillation not anticoagulated due to prior bleeding issues and patient preference, HTN, ESRD on HD, moderate to severe mitral regurgitation with conservative medical management preferred by patient, and other problems listed below who presents the ED for evaluation of cough and shortness of breath. Patient reports an ongoing cough for the past 4 to 5 days. While at dialysis today, cough became acutely worse and patient reports associated shortness of breath. She was also reportedly tachycardic and hypotensive. Patient was sent to the ED for further evaluation. In the ED, patient was found to be in atrial fibrillation with RVR with a stable BP. Patient reports cough has been productive for clear sputum. She denies fevers and chills. No chest pain or palpitations. Denies lightheadedness, dizziness, diaphoresis, syncopal events. No abdominal pain, nausea, vomiting, diarrhea. In the ED, CXR shows left basilar consolidation. Patient was given a 10 mg diltiazem IV bolus followed by a diltiazem drip. She was also given IV cefepime. Allergies Allergy/AdvReac Type Severity Reaction Status Date / Time No Known Allergies Allergy Verified 01/25/22 18:22 Home Medications Medication Instructions Recorded Confirmed Type ergocalciferol (vitamin D2) 1,250 50,000 unit PO MONTHLY 09/26/18 03/13/22 History mcg (50,000 unit) capsule hydralazine 50 mg tablet 100 mg PO BID 09/26/18 03/13/22 History ipratropium 0.5 mg-albuterol 3 mg 3 ml inhalation QID PRN Shortness 09/26/18 03/13/22 History (2.5 mg base)/3 mL nebulization Of Breath soln vitamin B complex-vitamin C-folic 1 tab PO QAM 09/26/18 03/13/22 History acid 0.8 mg tablet (Arabella-Tika) fluticasone propionate 50 2 spray intranasal HS 01/18/19 03/13/22 History mcg/actuation nasal spray,suspension sevelamer carbonate 800 mg tablet 2,400 mg PO TIDM 01/18/19 03/13/22 History albuterol sulfate 90 mcg/actuation 2 puff inhalation Q4H PRN Wheezing 04/05/19 03/13/22 History aerosol inhaler acetaminophen 325 mg tablet 650 mg PO Q6H PRN Pain 04/14/21 03/13/22 History (Tylenol) camphor-menthol 0.5 %-0.5 % lotion 1 applic topical DIRECTED PRN 04/14/21 03/13/22 History Itching docusate sodium 100 mg capsule 100 mg PO BID PRN Constipation 04/14/21 03/13/22 History (Colace) epoetin gabriel 10,000 unit/mL 0 unit IV DIRECTED 04/14/21 03/13/22 History injection solution (Procrit) lidocaine-prilocaine 2.5 %-2.5 % 1 applic topical DIRECTED PRN 04/14/21 03/13/22 History topical cream PRIOR TO DIALYSIS lisinopril 40 mg tablet 40 mg PO QAM 04/14/21 03/13/22 History loperamide 2 mg capsule (Imodium 2 mg PO QID PRN Diarrhea 04/14/21 03/13/22 History A-D) valacyclovir 1 gram tablet 1,000 mg PO QAM 04/14/21 03/13/22 History fluorometholone 0.1 % eye 1 drp OPL QAM 01/25/22 03/13/22 History drops,suspension fluticasone 250 mcg-salmeterol 50 1 inh inhalation BID 01/25/22 03/13/22 History mcg/dose blistr powdr for inhalation (Advair Diskus) diltiazem HCl 180 mg 180 mg PO DAILY 03/13/22 03/13/22 History capsule,extended release 24 hr Past Med/Surg History Medical History Adrenal adenoma Anemia of chronic disease AV fistula LUE Chronic respiratory failure with hypoxia, on home O2 therapy COPD, moderate On 08/19/15 09:47 Mare Whyte wrote "2L O2 at home" Diastolic CHF DM type 2 (diabetes mellitus, type 2) IDDM Dyslipidemia ESRD (end stage renal disease) on dialysis follows with Dr. Reed; Hillary Corley Sat - [facility] (since 02/2013) GI bleed hx H/O cardiovascular stress test "05/2013 - negative for ischemia" History of colon polyps History of GI bleed History of Helicobacter pylori infection HTN (hypertension) Moderate mitral regurgitation "moderate to severe on 12/2015 echo" On 01/13/16 15:17 Blanca Chan wrote "echo 06/2015 - calcified mitral valve, moderate MR" Obesity On home oxygen therapy 3 LPM cont Osteoarthritis Pancreatic cyst Paroxysmal atrial fibrillation Psoriasis Renal cyst Tobacco use Surgical History H/O colonoscopy "2005, hyperplastic polyps repeat in 10 years " H/O nasal polypectomy History of cataract surgery History of intestinal surgery History of surgery AVF creation S/P appendectomy "1971" S/P cholecystectomy "1971" S/P left oophorectomy "1981" S/P ASH (total abdominal hysterectomy) "For Fibroids " Family History Father Myocardial infarction, Onset Age: 64 Mother , 87 Alzheimer disease Other No family history of adverse response to anesthesia Social History Smoking Status: Former smoker Tobacco Type: Cigarettes Cigarettes Per Day: 3; Second Hand Exposure: No; Hx Alcohol Use: No Hx Substance Use: No Preferred Language: Yi Communication Ability: Effective Pharmacy Informaticist 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 Beliefs That Will Affect Care: None marital status: / Current Living Situation: Alone current occupational status: retired Other Information That Helps Us Care for You: No Feels Safe at Home: Yes Safety Concerns: Feels Safe At This Time Assistive Devices: Oxygen - Continuous and Walker Review of Systems Review of Systems: ROS per HPI, all other systems reviewed and negative Physical Exam Constitutional: WD/WN, vitals as above Eyes: PERRL, conjunctivae normal, anicteric sclerae ENMT: external ear and nose normal, oropharynx normal Respiratory: normal respiratory effort; no respiratory distress Auscultation: + diminished lung sounds; no crackles, no rhonchi and no wheezes Cardiovascular: Rate/Rhythm: + tachycardic and + irregularly irregular Vessels: normal peripheral pulses Extremities: no edema Gastrointestinal (Abdomen): normal bowel sounds, soft, nontender, no hepatosplenomegaly Musculoskeletal: no cyanosis or clubbing, extremities motor strength 5/5 Skin: no rashes, warm and dry Neurologic: PERRL, EOMI, accommodation nl, no face palsy, no dysarthria Psychiatric: A+Ox3, euthymic affect Results & Data Results & Data ([facility]) Vital Signs (Past 12 Hours) Vital Signs Temp Pulse Pulse Resp BP BP BP 03/13/22 16:10 36.6 C 68 20 147/70 H 03/13/22 15:33 82 18 03/13/22 13:50 03/13/22 13:50 37.0 C 82 16 115/78 03/13/22 13:26 03/13/22 13:00 107 H 18 03/13/22 12:46 118 H 15 03/13/22 12:45 117 H 20 03/13/22 12:30 19 03/13/22 12:30 120/73 03/13/22 12:15 18 03/13/22 12:15 139/59 L 03/13/22 12:01 124/85 03/13/22 12:01 111 H 20 03/13/22 12:00 109 H 13 03/13/22 11:45 127 H 16 03/13/22 11:40 101 H 21 03/13/22 11:30 103 H 24 03/13/22 11:30 113/75 03/13/22 11:20 107 H 21 03/13/22 11:10 109 H 18 03/13/22 11:00 106 H 25 H 03/13/22 11:00 134/66 03/13/22 10:58 149/68 H 03/13/22 10:58 95 H 32 H 03/13/22 10:50 115 H 25 H 03/13/22 10:40 98 H 21 03/13/22 10:30 118 H 22 03/13/22 10:20 98 H 20 03/13/22 10:11 112 H 24 03/13/22 10:11 36.7 C 117 H 20 140/67 Pulse Ox O2 Del Method O2 Flow Rate 03/13/22 16:10 98 Nasal Cannula 3.5 03/13/22 15:33 94 Nasal Cannula 4 03/13/22 13:50 Nasal Cannula 4 03/13/22 13:50 98 Nasal Cannula 4 03/13/22 13:26 Nasal Cannula 4 03/13/22 13:00 99 03/13/22 12:46 03/13/22 12:45 03/13/22 12:30 99 03/13/22 12:30 03/13/22 12:15 99 03/13/22 12:15 03/13/22 12:01 03/13/22 12:01 99 03/13/22 12:00 97 03/13/22 11:45 98 03/13/22 11:40 95 03/13/22 11:30 96 03/13/22 11:30 03/13/22 11:20 97 03/13/22 11:10 100 03/13/22 11:00 100 Nasal Cannula 4 03/13/22 11:00 Nasal Cannula 4 03/13/22 10:58 Nasal Cannula 4 03/13/22 10:58 100 Nasal Cannula 4 03/13/22 10:50 100 Nasal Cannula 4 03/13/22 10:40 100 Nasal Cannula 4 03/13/22 10:30 Nasal Cannula 4 03/13/22 10:20 98 Nasal Cannula 4 03/13/22 10:11 100 Nasal Cannula 4 03/13/22 10:11 99 Room Air Laboratory Results Short CBC 03/13/22 Range/Units 10:20 WBC 4.85 (4.8-10.8) K/ul Hgb 9.8 L (12.0-16.0) g/dl Hct 29.3 L (34.1-44.9) % Plt Count 136 (130-400) K/uL BMP 03/13/22 10:20 Sodium 143 Potassium 3.1 L Chloride 103 Carbon Dioxide 28 BUN 16 Creatinine 4.41 H Glucose 145 H Calcium 9.0 Liver Function 03/13/22 Range/Units 10:20 Total Bilirubin 0.5 (0.2-1.0) mg/dl AST 16 (13-39) U/L ALT 13 (7-52) U/L Alkaline Phosphatase 67 (34-104) U/L Albumin 3.5 (3.4-5.0) gm/dl Diagnostic Findings Chest X-Ray 03/13/22 10:38 SINGLE VIEW CHEST CLINICAL HISTORY: Dyspnea. FINDINGS: An AP, portable, upright chest radiograph is compared to study dated 01/25/2022 and correlated with chest CT dated 04/29/2021. The examination is degraded by portable technique, apical lordotic positioning, and patient rotation. The heart is enlarged noting atherosclerotic calcification of the thoracic aorta. The pulmonary vasculature is noncongested. Emphysema and chronic interstitial thickening is similar to previous. There is left basilar consolidation and a small left pleural effusion. Scarring/atelectasis is seen at the right lung base. No pneumothorax is seen. The skeletal structures are osteopenic. The bony thorax is grossly intact. IMPRESSION: 1. Cardiomegaly and emphysema. 2. Left basilar consolidation and small left pleural effusion. This could represent atelectasis versus pneumonia/aspiration pneumonitis. Clinical correlation will be required and radiographic follow-up to resolution is recommended. ACT 112: Negative or not required by law. Electronically signed by: Luigi García M.D. 03/13/2022 10:56 AM Code Status & VTE Plan Code Status Patient is a full code as per my discussion with her. VTE Prophylaxis Plan VTE Prophylaxis will be ordered: Yes
[2022-03-13] MEDS ORDERED: POTASSIUM CHLORIDE CRTAB 20 MEQ TABCR PO ONE (16:45)
[2022-03-13] MEDS ORDERED: Heparin IV Adult Wt-Based Low-Dose *NO* Bolus Protocol IV STA (16:55)
[2022-03-13] MEDS ORDERED: HEPARIN 25000 UNIT/500 ML D5W IV ONE (17:12)
[2022-03-13] MEDS: HEPARIN SODIUM/DEXTROSE 25,000 UNITS/500 ML BAG IV SCH (17:22)
[2022-03-13] MEDS: guaiFENesin 600 MG TABCR PO SCH (21:18)
[2022-03-13] MEDS: hydrALAZINE TAB 50 MG TAB PO SCH (21:19)
[2022-03-14] MEDS: dilTIAZem HCL 125 MG in DEXTROSE 5% 100 ML IV SCH (00:04)
[2022-03-14 00:27] LABS: Partial Thromboplastin Ratio 1.2
[2022-03-14] MEDS ORDERED: HEPARIN SOD (PORCINE) 1000 UNIT/ML IV ONE ×2 (01:00→23:16)
[2022-03-14] MEDS: ALBUT/IPRATROP 3MG/0.5MG NEB 3 ML VIAL NEB SCH ×6 (03:39→22:25)
[2022-03-14] MEDS: DOXYCYCLINE HYCLATE 100 MG in DEXTROSE 5% 100 ML IV SCH ×2 (03:45→15:55)
[2022-03-14 07:47] LABS: Hematocrit (blood only) 24.8 % (34.1-44.9); Hemoglobin 8.3 g/dl (12.0-16.0); Mean Corpuscular Hemoglobin 40.5 pg (25.0-34.0); Mean Corpuscular Hgb Conc 33.5 g/dL (32.0-36.0); Platelet Count 117 K/uL (130-400); RDW Coefficient of Variation 13.9 % (11.5-14.5); RDW Standard Deviation 61.5 fL (36.4-46.3); Red Blood Count 2.05 M/uL (3.93-5.22); White Blood Count 5.68 K/ul (4.8-10.8)
[2022-03-14] MEDS ORDERED: PERFLUTREN LIPID MICROSPHERE (DEFINITY) IV ONE (07:52)
[2022-03-14 08:12] LABS: Partial Thromboplastin Ratio 1.6
[2022-03-14 08:19] LABS: Partial Thromboplastin Time 45.3 Seconds (21.0-31.0)
[2022-03-14 08:44] LABS: BUN Creatinine Ratio 5.4 (10-20); Calcium 8.4 mg/dl (8.5-10.1); Creatinine Clr Calc Pharmacy 7.4 ml/min; Est GFR (African American) 5.8 ml/min; Potassium 4.3 mmol/L (3.5-5.1)
[2022-03-14] MEDS: guaiFENesin 600 MG TABCR PO SCH ×2 (08:53→20:27)
[2022-03-14] MEDS: valACYclovir HCL 500 MG TABLET PO SCH (08:54)
[2022-03-14] MEDS: lisinopril 40 MG TAB PO SCH (08:54)
[2022-03-14] MEDS: hydrALAZINE TAB 50 MG TAB PO SCH ×2 (08:54→20:27)
[2022-03-14] MEDS: NEPHROCAPS PO SCH (08:54)
[2022-03-14] MEDS: SEVELAMER HCL 800 MG TABLET PO SCH ×3 (08:54→17:04)
--- NOTE | 2022-03-14 09:13 | Cardiology Consultation ---
Date of Consultation March 14, 2022 Assessment & Plan (1) Atrial fibrillation with rapid ventricular response: (2) ESRD (end stage renal disease) on dialysis: (3) Chronic respiratory failure with hypoxia: (4) COPD, moderate: Plan Very complex patient. Unfortunately, there are not many options for this patient. I think we should try to maintain rhythm control and the best option is amiodarone for patient on dialysis. I reviewed her EKGs, at least the EKGs in the hospital. I do not believe that she has QT interval prolongation. We will follow her QT interval while we start the amiodarone. I would continue the IV heparin but as noted in the past the patient has not wanted to be on long- term anticoagulation. Her echocardiogram shows an abnormality on the mitral valve which has been present on previous studies. She has severe mitral regurgitation and desires only medical therapy. We will follow along with you during her hospital stay. History of Present Illness Attending Physician: Inez Contreras MD History of Present Illness This is a 77-year-old female well-known to our service with the history as outlined below. She was at dialysis yesterday and suddenly became short of breath, tachycardic and hypotensive. When she presented to the emergency department she was in atrial fibrillation with RVR. She was started on a dilt iazem drip and eventually spontaneously converted to normal sinus rhythm. Currently she has no complaints. Past medical history: 1.Paroxysmal atrial fibrillation, currently NSR. Off anticoagulation secondary to anemia, HD treatments, and patient preference. 2.Focal calcification of the posterior mitral valve leaflet with moderate to severe mitral regurgitation. Medical management/conservative therapy requested. Stable symptoms. Stable per recent echo Mar 2021 at [place]. 3.End-stage kidney disease on hemodialysis 4.Prior GI bleeding requiring transfusions of PRBC's, no longer on anticoagulation therapy. 5.Anemia of chronic disease, monitored by Nephrology, 6.Type II diabetes mellitus 7.COPD requiring supplemental oxygen, with chronic ongoing tobacco abuse. 8.Hypertension - controlled 9.Dyslipidemia - Allergies Allergy/AdvReac Type Severity Reaction Status Date / Time No Known Allergies Allergy Verified 01/25/22 18:22 Home Medications Medication Instructions Recorded Confirmed Type ergocalciferol (vitamin D2) 1,250 50,000 unit PO MONTHLY 09/26/18 03/13/22 History mcg (50,000 unit) capsule hydralazine 50 mg tablet 100 mg PO BID 09/26/18 03/13/22 History ipratropium 0.5 mg-albuterol 3 mg 3 ml inhalation QID PRN Shortness 09/26/18 03/13/22 History (2.5 mg base)/3 mL nebulization Of Breath soln vitamin B complex-vitamin C-folic 1 tab PO QAM 09/26/18 03/13/22 History acid 0.8 mg tablet (Arabella-Tika) fluticasone propionate 50 2 spray intranasal HS 01/18/19 03/13/22 History mcg/actuation nasal spray,suspension sevelamer carbonate 800 mg tablet 2,400 mg PO TIDM 01/18/19 03/13/22 History albuterol sulfate 90 mcg/actuation 2 puff inhalation Q4H PRN Wheezing 04/05/19 03/13/22 History aerosol inhaler acetaminophen 325 mg tablet 650 mg PO Q6H PRN Pain 04/14/21 03/13/22 History (Tylenol) camphor-menthol 0.5 %-0.5 % lotion 1 applic topical DIRECTED PRN 04/14/21 03/13/22 History Itching docusate sodium 100 mg capsule 100 mg PO BID PRN Constipation 04/14/21 03/13/22 History (Colace) epoetin gabriel 10,000 unit/mL 0 unit IV DIRECTED 04/14/21 03/13/22 History injection solution (Procrit) lidocaine-prilocaine 2.5 %-2.5 % 1 applic topical DIRECTED PRN 04/14/21 History topical cream PRIOR TO DIALYSIS lisinopril 40 mg tablet 40 mg PO QAM 04/14/21 03/13/22 History loperamide 2 mg capsule (Imodium 2 mg PO QID PRN Diarrhea 04/14/21 03/13/22 History A-D) valacyclovir 1 gram tablet 1,000 mg PO QAM 04/14/21 03/13/22 History fluorometholone 0.1 % eye 1 drp OPL QAM 01/25/22 03/13/22 History drops,suspension fluticasone 250 mcg-salmeterol 50 1 inh inhalation BID 01/25/22 03/13/22 History mcg/dose blistr powdr for inhalation (Advair Diskus) diltiazem HCl 180 mg 180 mg PO DAILY 03/13/22 03/13/22 History capsule,extended release 24 hr Patient History Medical History Adrenal adenoma Anemia of chronic disease AV fistula LUE Chronic respiratory failure with hypoxia, on home O2 therapy COPD, moderate On 08/19/15 09:47 Mare Whyte wrote "2L O2 at home" Diastolic CHF DM type 2 (diabetes mellitus, type 2) IDDM Dyslipidemia ESRD (end stage renal disease) on dialysis follows with Dr. Reed; Hillary Corley, Sat - [facility] (since 02/2013) GI bleed hx H/O cardiovascular stress test "05/2013 - negative for ischemia" History of colon polyps History of GI bleed History of Helicobacter pylori infection HTN (hypertension) Moderate mitral regurgitation "moderate to severe on 12/2015 echo" On 01/13/16 15:17 Blanca Rocio wrote "echo 06/2015 - calcified mitral valve, moderate MR" Obesity On home oxygen therapy 3 LPM cont Osteoarthritis Pancreatic cyst Paroxysmal atrial fibrillation Psoriasis Renal cyst Tobacco use Surgical History H/O colonoscopy "2005, hyperplastic polyps repeat in 10 years " H/O nasal polypectomy History of cataract surgery History of intestinal surgery History of surgery AVF creation S/P appendectomy "1971" S/P cholecystectomy "1971" S/P left oophorectomy "1981" S/P ASH (total abdominal hysterectomy) "For Fibroids " Family History Father Myocardial infarction, Onset Age: 64 Mother , 87 Alzheimer disease Other No family history of adverse response to anesthesia Social History Smoking Status: Former smoker Tobacco Type: Cigarettes Cigarettes Per Day: 3; Second Hand Exposure: No; Hx Alcohol Use: No Hx Substance Use: No Preferred Language: Welsh Communication Ability: Effective Right Of Way Agent 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 Beliefs That Will Affect Care: None marital status: / Current Living Situation: Alone current occupational status: retired Other Information That Helps Us Care for You: No Feels Safe at Home: Yes Safety Concerns: Feels Safe At This Time Assistive Devices: Oxygen - Continuous and Walker Review of Systems Review of Systems: Review of Systems: See HPI for pertinent positives. All other 10 point review of systems are negative. Physical Exam Physical Exam: General: no acute distress and stated age Head: normocephalic, no masses, lesions, tenderness or abnormalities Eyes: conjunctiva are pink and non-injected, sclera clear Neck: supple, no adenopathy, no bruits, normal jugular venous pulse, no hepatojugular reflux Chest: normal shape and normal respiratory effort Lungs: clear to auscultation and percussion Cardiac Exam: - irregular rate & rhythm, no murmurs gallops or rubs - normal S1, normal S2 Pulses: 2(+) throughout Abdomen: abdomen soft, non-tender, no abnormal masses and no hepatosplenomegaly Musculoskeletal: no gait disturbance, no joint inflammation, no deforming arthritis Extremities: no edema and no cyanosis Neuro: grossly normal exam Results & Data ([facility]) Vital Signs (Past 12 Hours) Vital Signs Temp Pulse Pulse Resp BP Pulse Ox Pulse Ox 03/14/22 08:00 90 03/14/22 08:00 90 03/14/22 08:03 62 18 90 03/14/22 07:11 36.7 C 64 19 145/64 H 92 03/14/22 03:39 71 18 94 03/14/22 03:45 36.7 C 71 18 120/46 L 94 03/13/22 22:15 65 03/14/22 01:09 66 113/61 93 03/13/22 22:59 67 18 94 03/13/22 22:55 37.4 C 68 18 138/62 91 O2 Del Method O2 Del Method O2 Flow Rate O2 Flow Rate 03/14/22 08:00 03/14/22 08:00 Nasal Cannula 3.5 03/14/22 08:03 Nasal Cannula 3.5 03/14/22 07:11 Nasal Cannula 3 03/14/22 03:39 Nasal Cannula 4 03/14/22 03:45 Nasal Cannula 03/13/22 22:15 03/14/22 01:09 Nasal Cannula 3.5 03/13/22 22:59 Nasal Cannula 4 03/13/22 22:55 Nasal Cannula Laboratory Results Laboratory Results - last 24 hr 03/13/22 03/13/22 03/13/22 10:20 14:13 15:59 WBC RBC Hgb Hct MCV MCH MCHC RDW Std Deviation RDW Coeff of Fior Plt Count MPV APTT PTT Ratio Sodium Potassium Chloride Carbon Dioxide Anion Gap BUN Creatinine Est Cr Clr Drug Dosing Est GFR ( Amer) Est GFR (Non-Af Amer) BUN/Creatinine Ratio Glucose Calcium Troponin I High Sens 103.5 H* D Procalcitonin 0.20 Nasal Screen MRSA (PCR) Negative 03/13/22 03/13/22 03/14/22 22:42 23:37 06:58 WBC 5.68 RBC 2.05 L Hgb 8.3 L Hct 24.8 L MCV 121.0 H MCH 40.5 H MCHC 33.5 RDW Std Deviation 61.5 H RDW Coeff of Fior 13.9 Plt Count 117 L MPV 11.0 APTT 33.0 H PTT Ratio 1.2 Sodium Potassium Chloride Carbon Dioxide Anion Gap BUN Creatinine Est Cr Clr Drug Dosing Est GFR ( Amer) Est GFR (Non-Af Amer) BUN/Creatinine Ratio Glucose Calcium Troponin I High Sens 103.5 H* Procalcitonin Nasal Screen MRSA (PCR) 03/14/22 03/14/22 06:58 06:59 WBC RBC Hgb Hct MCV MCH MCHC RDW Std Deviation RDW Coeff of Fior Plt Count MPV APTT 45.3 H* PTT Ratio 1.6 Sodium 141 Potassium 4.3 D Chloride 105 Carbon Dioxide 28 Anion Gap 8 BUN 39 H D Creatinine 7.25 H* D Est Cr Clr Drug Dosing 7.4 Est GFR ( Amer) 5.8 Est GFR (Non-Af Amer) 5.0 BUN/Creatinine Ratio 5.4 L Glucose 110 H Calcium 8.4 L Troponin I High Sens Procalcitonin Nasal Screen MRSA (PCR) Medications Administered Current Inpatient Medications Acetaminophen (Acetaminophen 325 Mg Tab) 650 mg PO Q4H PRN PRN Reason: Pain or Fever Stop: 04/12/22 13:42 Albuterol (Albut/Ipratrop 3mg/0.5mg Neb 3 Ml Vial) 3 ml NEB Q4R MARY; Protocol Stop: 04/12/22 14:59 Last Admin: 03/14/22 11:24 Dose: 3 ml Amiodarone HCl (Amiodarone 200 Mg Tab) 200 mg PO TIDM [facility] Stop: 04/13/22 16:59 Docusate Sodium (Docusate Sodium 100 Mg Cap) 100 mg PO BID PRN PRN Reason: Constipation Stop: 04/12/22 13:42 Fluticasone/Vilanterol (Fluticasone/Vilanterol 100/25mcg 14 Puffs/Inhaler) 1 puffs INH DAILY@2100 [facility] Stop: 04/13/22 20:59 Guaifenesin (Guaifenesin 600 Mg Tabcr) 1,200 mg PO Q12 [facility] Stop: 04/12/22 20:59 Last Admin: 03/14/22 08:53 Dose: 1,200 mg Hydralazine HCl (Hydralazine Tab 50 Mg Tab) 100 mg PO BID [facility] Stop: 04/12/22 20:59 Last Admin: 03/14/22 08:54 Dose: 100 mg Doxycycline Hyclate 100 mg/ (Dextrose) 110 mls @ 50 mls/hr IV Q12H [facility] Stop: 03/20/22 14:59 Last Infusion: 03/14/22 05:57 Dose: Infused Ceftriaxone Sodium 2,000 mg/ (Dextrose) 70 mls @ 140 mls/hr IV Q24H [facility]; Protocol Stop: 03/20/22 13:59 Last Infusion: 03/13/22 16:26 Dose: Infused Heparin Sodium/Dextrose (Heparin Sodium/Dextrose) 25,000 units in 500 mls @ 21 mls/hr IV .[id number] [facility]; Protocol Stop: 04/12/22 16:44 Last Titration: 03/14/22 08:55 Dose: 1,050 units/hr, 21 mls/hr Lisinopril (Lisinopril 40 Mg Tab) 40 mg PO QAM [facility] Stop: 04/13/22 08:59 Last Admin: 03/14/22 08:54 Dose: 40 mg Sevelamer HCl (Sevelamer Hcl 800 Mg Tablet) 2,400 mg PO TIDM [facility] Stop: 04/12/22 16:59 Last Admin: 03/14/22 12:03 Dose: 2,400 mg Valacyclovir HCl (Valacyclovir Hcl 500 Mg Tablet) 1,000 mg PO QAM [facility] Stop: 03/16/22 08:59 Last Admin: 03/14/22 08:54 Dose: 1,000 mg Vitamin B Complex/Folic Acid (Nephrocaps) 1 cap PO QAM [facility] Stop: 04/13/22 08:59 Last Admin: 03/14/22 08:54 Dose: 1 cap
--- NOTE | 2022-03-14 10:38 | Nephrology Consultation ---
Date of Consultation March 14, 2022 Assessment & Plan (1) ESRD (end stage renal disease) on dialysis: ESRD on HD - Normal days are TTS. Last dialysed on tuesday , but this was incomplete -electrolytes are wnl and fluid staus fine-- No need for urgent HD today - will stick to TTS until change in clinical scenario - OK with 20 meQ k , keep k > 4. - please continue on all her outpatinet medication (2) Atrial fibrillation with rapid ventricular response: as per cardiology (3) Pneumonia: - renally dose abx. History of Present Illness Reason for Consultation: ESRD on HD (TTS) Attending Physician: Inez Contreras MD History of Present Illness 77-year-old lady with PMH of T2DM with ESRD on HD [TTS] who presented to the ER from dialysis center due to increased heart rate assisted through dialysis Other significant PMH includes,HLD, COPD on 3 L oxygen at home, paroxysmal A. fib (not on anticoagulation) HTN, anemia of CKD, general osteoarthritis Patient was noted to be hypotensive. Patient also reported ongoing cough for 4 to 5 days prior to arrival, reports clear sputum, reports having all vaccines against COVID, denies palpitation or headache or dizziness or chest pain. Electrolytes were stable and did not appear to be grossly overloaded. Patient was started on Cardizem drip, cardiology aware, plan to continue Cardizem drip through the night.CXr was significant for L basal consolidation, being treated for for Pna Allergies Allergy/AdvReac Type Severity Reaction Status Date / Time No Known Allergies Allergy Verified 01/25/22 18:22 Home Medications Medication Instructions Recorded Confirmed Type ergocalciferol (vitamin D2) 1,250 50,000 unit PO MONTHLY 09/26/18 03/13/22 History mcg (50,000 unit) capsule hydralazine 50 mg tablet 100 mg PO BID 09/26/18 03/13/22 History ipratropium 0.5 mg-albuterol 3 mg 3 ml inhalation QID PRN Shortness 09/26/18 03/13/22 History (2.5 mg base)/3 mL nebulization Of Breath soln vitamin B complex-vitamin C-folic 1 tab PO QAM 09/26/18 03/13/22 History acid 0.8 mg tablet (Arabella-Tika) fluticasone propionate 50 2 spray intranasal HS 01/18/19 03/13/22 History mcg/actuation nasal spray,suspension sevelamer carbonate 800 mg tablet 2,400 mg PO TIDM 01/18/19 03/13/22 History albuterol sulfate 90 mcg/actuation 2 puff inhalation Q4H PRN Wheezing 04/05/19 03/13/22 History aerosol inhaler acetaminophen 325 mg tablet 650 mg PO Q6H PRN Pain 04/14/21 03/13/22 History (Tylenol) camphor-menthol 0.5 %-0.5 % lotion 1 applic topical DIRECTED PRN 04/14/21 03/13/22 History Itching docusate sodium 100 mg capsule 100 mg PO BID PRN Constipation 04/14/21 03/13/22 History (Colace) epoetin gabriel 10,000 unit/mL 0 unit IV DIRECTED 04/14/21 03/13/22 History injection solution (Procrit) lidocaine-prilocaine 2.5 %-2.5 % 1 applic topical DIRECTED PRN 04/14/21 03/13/22 History topical cream PRIOR TO DIALYSIS lisinopril 40 mg tablet 40 mg PO QAM 04/14/21 03/13/22 History loperamide 2 mg capsule (Imodium 2 mg PO QID PRN Diarrhea 04/14/21 03/13/22 History A-D) valacyclovir 1 gram tablet 1,000 mg PO QAM 04/14/21 03/13/22 History fluorometholone 0.1 % eye 1 drp OPL QAM 01/25/22 03/13/22 History drops,suspension fluticasone 250 mcg-salmeterol 50 1 inh inhalation BID 01/25/22 03/13/22 History mcg/dose blistr powdr for inhalation (Advair Diskus) diltiazem HCl 180 mg 180 mg PO DAILY 03/13/22 03/13/22 History capsule,extended release 24 hr Patient History Medical History Adrenal adenoma Anemia of chronic disease AV fistula LUE Chronic respiratory failure with hypoxia, on home O2 therapy COPD, moderate On 08/19/15 09:47 Mare Whyte wrote "2L O2 at home" Diastolic CHF DM type 2 (diabetes mellitus, type 2) IDDM Dyslipidemia ESRD (end stage renal disease) on dialysis follows with Dr. Reed; Hillary Corley, Luis Carlos - [facility] (since 02/2013) GI bleed hx H/O cardiovascular stress test "05/2013 - negative for ischemia" History of colon polyps History of GI bleed History of Helicobacter pylori infection HTN (hypertension) Moderate mitral regurgitation "moderate to severe on 12/2015 echo" On 01/13/16 15:17 Blanca Chan wrote "echo 06/2015 - calcified mitral valve, moderate MR" Obesity On home oxygen therapy 3 LPM cont Osteoarthritis Pancreatic cyst Paroxysmal atrial fibrillation Psoriasis Renal cyst Tobacco use Surgical History H/O colonoscopy "2005, hyperplastic polyps repeat in 10 years " H/O nasal polypectomy History of cataract surgery History of intestinal surgery History of surgery AVF creation S/P appendectomy "1971" S/P cholecystectomy "1971" S/P left oophorectomy "1981" S/P ASH (total abdominal hysterectomy) "For Fibroids " Family History Father Myocardial infarction, Onset Age: 64 Mother , 87 Alzheimer disease Other No family history of adverse response to anesthesia Social History Smoking Status: Former smoker Tobacco Type: Cigarettes Cigarettes Per Day: 3; Second Hand Exposure: No; Hx Alcohol Use: No Hx Substance Use: No Preferred Language: Maori Communication Ability: Effective Deicer Repairer 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 Beliefs That Will Affect Care: None marital status: / Current Living Situation: Alone current occupational status: retired Other Information That Helps Us Care for You: No Feels Safe at Home: Yes Safety Concerns: Feels Safe At This Time Assistive Devices: Oxygen - Continuous and Walker Review of Systems Review of Systems: All systems reviewed & are unremarkable except as noted in HPI & below No SOB Alert , Oriented NO pedal edema Physical Exam Physical Exam: GENERAL: Alert and oriented x3. NAD,, Appears ill/weak/frail. HEENT: No pallor, no icterus. Pupils equal, round and reactive to light. Oral mucosa moist. NECK: No JVD, no neck masses. HEART: S1 and S2 heard. Irregular, HR in 110s. No murmur, no gallop. RESPIRATORY SYSTEM: Normal AP diameter. No accessory muscle use. No wheezing, rt base crackles noted. ABDOMEN: Soft, bowel sounds present, nontender, no distention. CENTRAL NERVOUS SYSTEM: Obeys simple commands. Moves extremities. EXTREMITIES:No edema Results & Data ([facility] [place]) Vital Signs (Past 12 Hours) Vital Signs Temp Pulse Pulse Resp BP Pulse Ox Pulse Ox 03/14/22 08:00 90 03/14/22 08:00 90 03/14/22 08:03 62 18 90 03/14/22 07:11 36.7 C 64 19 145/64 H 92 03/14/22 03:39 71 18 94 03/14/22 03:45 36.7 C 71 18 120/46 L 94 03/14/22 01:09 66 113/61 93 03/13/22 22:59 67 18 94 03/13/22 22:55 37.4 C 68 18 138/62 91 O2 Del Method O2 Del Method O2 Flow Rate O2 Flow Rate 03/14/22 08:00 03/14/22 08:00 Nasal Cannula 3.5 03/14/22 08:03 Nasal Cannula 3.5 03/14/22 07:11 Nasal Cannula 3 03/14/22 03:39 Nasal Cannula 4 03/14/22 03:45 Nasal Cannula 03/14/22 01:09 Nasal Cannula 3.5 03/13/22 22:59 Nasal Cannula 4 03/13/22 22:55 Nasal Cannula Laboratory Results 03/14/22 06:58 03/14/22 06:58 (1) Pneumonia Laterality: left Lung location: lower lobe of lung Pneumonia type: due to unspecified organism Qualified Code(s): J18.9 - Pneumonia, unspecified organism
--- NOTE | 2022-03-14 15:08 | Hospitalist Progress Note ---
Date of Service March 14, 2022 Assessment & Plan (1) Atrial fibrillation with rapid ventricular response: Plan 77-year-old lady with PMH of T2DM with CKD on HD [TuThSa], HLD, secondary hyperparathyroidism of renal origin, COPD on 3 L oxygen at home, paroxysmal A. fib not anticoagulated due to prior bleeding issues and patient preference, HTN, anemia of CKD, general osteoarthritis presented to ED 03/13 from dialysis center due to increased heart rate longterm through dialysis, patient was noted to be hypotensive. Patient also reports ongoing cough for 4 to 5 days prior to arrival, reports clear sputum, reports having "all vaccines against COVID", denies palpitation or headache or dizziness or chest pain. Patient denies any problems swallowing or any incidence of choking on food. Patient reports smoking 2 to 3 cigarettes/day, patient has been cutting down since 1 year, prior to that patient was smoking 1 packs a day since age 18. Patient denies any use of alcohol or recreational drugs. Is full code. POA is her daughter Delphine per patient. She is being managed for the following: (1) Atrial fibrillation with rapid ventricular response: Patient presenting from dialysis for worsening cough and shortness of breath. In the ED, found to be in atrial fibrillation with RVR Patient with history of paroxysmal A. fib, typically rate controlled on diltiazem. Not anticoagulated due to previous bleeding issues and patient preference. Patient has severe mitral regurgitation and desires only medical therapy as per records. Patient is status post Cardizem drip, being evaluated by cardiology, plan for amiodarone. Monitor QTC. Patient is currently on heparin drip started at admission. Patient states that she had not previously wanted anticoagulation but would like to go with warfarin this time, given history of GI bleed in the remote past and easy reversibility warfarin would be a better choice for her. Given need for initiation of amiodarone, monitor INR and bleeding signs and symptoms very closely especially during initiation/titration Continue telemetry monitoring. We will start a small dose of warfarin at 2 mg. (2) Elevated troponin: Plan: HS Trop 16.7 --> 103.5 --> 103.5 Patient denies chest pain Admitting EKG shows A. fib with RVR with ST depressions in the anterior leads. Suspect tachycardia induced. f/u next day EKG w/ sinus rhythm. Resting echo with EF of 65 to 70%, left ventricle with normal size and normal systolic function. Right ventricular systolic function normal. Likely demand ischemia secondary to rapid A. fib. (3) Likely Pneumonia: (4) COPD, moderate: (5) Chronic respiratory failure with hypoxia: Admitting CXR shows left basilar consolidation consistent with possible pneumonia Afebrile, no leukocytosis Respiratory viral panel negative S/p cefepime in the ED; will continue with IV ceftriaxone and IV doxycycline 03/13 Saturating well on chronic 3.5L O2 No wheezing on exam, will hold on steroids for now Pulmonary toilet with nebs, Mucinex, incentive spirometer, flutter valve Continue to monitor. Hypokalemia: ESRD on hemodialysis Nephrology for hemodialysis, monitor and replete electrolytes as appropriate. Other chronic medical conditions: HTN, diastolic CHF --> continue with home meds as able. DVT prophylaxis: Patient on heparin drip, warfarin started 03/14, dc hep drip when INR/PT closer to therapeutic range. Full code Admission and Anticipated Discharge Date Admission Date: March 13, 2022 Subjective Patient seen and examined at bedside as a follow-up of atrial fibrillation with rapid ventricular response, elevated troponin, likely pneumonia. Patient was sitting up in chair, on 3 L nasal cannula oxygen which is her baseline, reports no new acute event overnight, reports feeling better, reports eating okay, has not had a bowel movement since admission yesterday, reports feeling occasional heart racing, denies any headache or dizziness or chest pain or other review of symptoms. Physical Exam Physical Exam: GENERAL: Alert and oriented x3. NAD, on 3L NC O2, Appears chronically ill. HEENT: No pallor, no icterus. Pupils equal, round and reactive to light. Oral mucosa moist. NECK: No JVD, no neck masses. HEART: S1 and S2 heard. nsr, regular rate and rhythm. No murmur, no gallop. RESPIRATORY SYSTEM: Normal AP diameter. No accessory muscle use. No wheezing, rt base crackles noted. ABDOMEN: Soft, bowel sounds present, nontender, no distention. CENTRAL NERVOUS SYSTEM: No facial droop. Speech is clear. Obeys simple commands. Moves extremities. EXTREMITIES: trace ble edema, no erythema seen. Results & Data Results & Data ([facility]) Vital Signs (Past 12 Hours) Vital Signs Temp Pulse Pulse Resp BP Pulse Ox Pulse Ox 03/14/22 11:28 36.8 C 60 19 151/56 H 90 03/14/22 11:25 65 18 90 03/14/22 08:00 90 03/14/22 08:00 90 03/14/22 08:03 62 18 90 03/14/22 07:11 36.7 C 64 19 145/64 H 92 03/14/22 03:39 71 18 94 03/14/22 03:45 36.7 C 71 18 120/46 L 94 O2 Del Method O2 Del Method O2 Flow Rate O2 Flow Rate 03/14/22 11:28 Nasal Cannula 3 03/14/22 11:25 Nasal Cannula 3 03/14/22 08:00 03/14/22 08:00 Nasal Cannula 3.5 03/14/22 08:03 Nasal Cannula 3.5 03/14/22 07:11 Nasal Cannula 3 03/14/22 03:39 Nasal Cannula 4 03/14/22 03:45 Nasal Cannula
[2022-03-14 15:16] LABS: Partial Thromboplastin Ratio 1.4; Partial Thromboplastin Time 38.4 Seconds (21.0-31.0)
[2022-03-14] MEDS: cefTRIAXone SODIUM 2,000 MG in DEXTROSE 5% 50 ML IV SCH (15:23)
[2022-03-14] MEDS ORDERED: WARFARIN SOD 2 MG TAB PO SCH (16:00)
[2022-03-14] MEDS: HEPARIN SODIUM/DEXTROSE 25,000 UNITS/500 ML BAG IV SCH (16:06)
[2022-03-14] MEDS: AMIODARONE 200 MG TAB PO SCH (17:05)
--- NOTE | 2022-03-14 22:04 | Electrocardiogram Report ---
Test Reason : Blood Pressure : / mmHG Vent. Rate : 126 BPM Atrial Rate : 115 BPM P-R Int : 000 ms QRS Dur : 098 ms QT Int : 358 ms P-R-T Axes : 000 054 -15 degrees QTc Int : 518 ms Atrial fibrillation with rapid ventricular response Nonspecific ST and T wave abnormality Abnormal ECG When compared with ECG of 25-JAN-2022 17:22, Atrial fibrillation has replaced Sinus rhythm Vent. rate has increased BY [address] now depressed in Anterior leads T wave inversion now evident in Inferior leads Nonspecific T wave abnormality now evident in Lateral leads Confirmed by Gianni Solorzano ([id number]) on 03/14/2022 10:03:49 PM Referred By: REFERRED SELF Confirmed By:Gianni Solorzano
[2022-03-14] MEDS: FLUTICASONE/VILANTEROL 100/25MCG 14 PUFFS/INHALER INH SCH (22:42)
[2022-03-14 22:47] LABS: Partial Thromboplastin Ratio 1.3; Partial Thromboplastin Time 34.7 Seconds (21.0-31.0)
[2022-03-14] MEDS ORDERED: Heparin IV Adult Wt-Based Standard WITH Bolus Protocol IV STA (22:59)
[2022-03-14] MEDS ORDERED: HEPARIN SODIUM/DEXTROSE 25,000 UNITS/500 ML BAG IV SCH (23:30)
[2022-03-14] MEDS ORDERED: HEPARIN IV BOLUS 3,000 UNITS in SYRINGE 0 ML IV ONE (23:30)
[2022-03-15] MEDS: ALBUT/IPRATROP 3MG/0.5MG NEB 3 ML VIAL NEB SCH ×6 (02:22→23:05)
[2022-03-15] MEDS: DOXYCYCLINE HYCLATE 100 MG in DEXTROSE 5% 100 ML IV SCH ×2 (02:57→16:44)
--- NOTE | 2022-03-15 05:28 | Electrocardiogram Report ---
Test Reason : Blood Pressure : / mmHG Vent. Rate : 073 BPM Atrial Rate : 073 BPM P-R Int : 220 ms QRS Dur : 104 ms QT Int : 420 ms P-R-T Axes : 062 099 027 degrees QTc Int : 462 ms Sinus rhythm with 1st degree A-V block with Premature atrial complexes Rightward axis Possible Anterior infarct , age undetermined Abnormal ECG When compared with ECG of 13-MAR-2022 10:11, (unconfirmed) Sinus rhythm has replaced Atrial fibrillation Vent. rate has decreased BY [address] no longer depressed in Anterior leads Nonspecific T wave abnormality no longer evident in Lateral leads Confirmed by Gianni Solorzano ([id number]) on 03/15/2022 5:27:31 AM Referred By: REFERRED SELF Confirmed By:Gianni Solorzano
--- NOTE | 2022-03-15 05:57 | Electrocardiogram Report ---
Test Reason : Blood Pressure : / mmHG Vent. Rate : 065 BPM Atrial Rate : 065 BPM P-R Int : 222 ms QRS Dur : 104 ms QT Int : 426 ms P-R-T Axes : 067 065 055 degrees QTc Int : 443 ms Sinus rhythm with 1st degree A-V block Otherwise normal ECG When compared with ECG of 13-MAR-2022 21:18, (unconfirmed) GA interval has increased QRS duration has increased Nonspecific T wave abnormality no longer evident in Anterolateral leads QT has shortened Confirmed by Gianni Solorzano ([id number]) on 03/15/2022 5:57:03 AM Referred By: REFERRED SELF Confirmed By:Gianni Solorzano
--- NOTE | 2022-03-15 05:59 | Electrocardiogram Report ---
Test Reason : Blood Pressure : / mmHG Vent. Rate : 061 BPM Atrial Rate : 061 BPM P-R Int : 190 ms QRS Dur : 096 ms QT Int : 430 ms P-R-T Axes : 040 064 066 degrees QTc Int : 432 ms Normal sinus rhythm with sinus arrhythmia Normal ECG When compared with ECG of 13-MAR-2022 16:51, (unconfirmed) No significant change Confirmed by Gianni Solorzano ([id number]) on 03/15/2022 5:58:53 AM Referred By: REFERRED SELF Confirmed By:Gianni Solorzano
[2022-03-15 06:19] LABS: Hematocrit (blood only) 23.4 % (34.1-44.9); Hemoglobin 7.9 g/dl (12.0-16.0); Mean Platelet Volume 11.1 fL (9.4-12.3); Platelet Count 102 K/uL (130-400); White Blood Count 4.42 K/ul (4.8-10.8)
[2022-03-15 06:29] LABS: Prothrombin Time 11.1 Seconds (9.0-12.0)
[2022-03-15 06:45] LABS: Partial Thromboplastin Ratio 2.2
[2022-03-15 06:47] LABS: BUN Creatinine Ratio 5.7 (10-20); Calcium 8.5 mg/dl (8.5-10.1); Creatinine Clr Calc Pharmacy 5.9 ml/min; Est GFR (African American) 4.4 ml/min; Est GFR (Non-African American) 3.8 ml/min; Magnesium 1.9 mg/dl (1.7-2.4); Phosphorus 4.4 mg/dl (2.5-4.9); Potassium 4.2 mmol/L (3.5-5.1)
[2022-03-15] MEDS: HEPARIN SODIUM/DEXTROSE 25,000 UNITS/500 ML BAG IV SCH ×3 (07:14→13:09)
[2022-03-15 07:15] LABS: Partial Thromboplastin Time 60.6 Seconds (21.0-31.0)
[2022-03-15 07:30] LABS: Mean Corpuscular Hemoglobin 40.1 pg (25.0-34.0); Mean Corpuscular Hgb Conc 33.8 g/dL (32.0-36.0); Mean Corpuscular Volume 118.8 fL (80.0-100.0); RDW Coefficient of Variation 13.5 % (11.5-14.5); RDW Standard Deviation 58.8 fL (36.4-46.3); Red Blood Count 1.97 M/uL (3.93-5.22)
[2022-03-15 07:31] LABS: Platelet Estimate Decreased (Normal)
[2022-03-15] MEDS: AMIODARONE 200 MG TAB PO SCH ×3 (08:18→16:45)
[2022-03-15] MEDS: hydrALAZINE TAB 50 MG TAB PO SCH ×2 (08:19→19:58)
[2022-03-15] MEDS: lisinopril 40 MG TAB PO SCH (08:19)
[2022-03-15] MEDS: SEVELAMER HCL 800 MG TABLET PO SCH ×3 (08:19→16:45)
[2022-03-15] MEDS: valACYclovir HCL 500 MG TABLET PO SCH (08:19)
[2022-03-15] MEDS: NEPHROCAPS PO SCH (08:19)
[2022-03-15] MEDS: guaiFENesin 600 MG TABCR PO SCH ×2 (08:19→19:57)
[2022-03-15] MEDS ORDERED: SODIUM CHLORIDE 0.9% 1000ML 1,000 ML IV PRN (11:51)
[2022-03-15] MEDS ORDERED: EPOETIN ALFA 20,000 UNITS/ML VIAL IV ONE (11:57)
[2022-03-15] MEDS ORDERED: LIDOCAINE/PRILOCAINE 2.5% EA CRM EXT SCH (12:00)
--- NOTE | 2022-03-15 12:34 | Cardiology Progress Note ---
Date of Service March 15, 2022 Assessment & Plan (1) Atrial fibrillation with rapid ventricular response: (2) ESRD (end stage renal disease) on dialysis: (3) Chronic respiratory failure with hypoxia: (4) COPD, moderate: Plan The patient is tolerating amiodarone. She is maintaining sinus rhythm with few brief runs of PAT. QT interval seems to be holding. The patient expresses to me her desire not to be started on anticoagulation. She needs to be maintained on a monitor at least an additional 24 hours while we load her amiodarone. She states that she will have dialysis tomorrow. Admission and Anticipated Discharge Date Admission Date: March 13, 2022 Subjective The patient is sitting in a chair having lunch. No new complaints today. Review of Systems Review of Systems: Review of Systems: See HPI for pertinent positives. All other 10 point review of systems are negative. Physical Exam Physical Exam: General: no acute distress and stated age Head: normocephalic, no masses, lesions, tenderness or abnormalities Eyes: conjunctiva are pink and non-injected, sclera clear Neck: supple, no adenopathy, no bruits, normal jugular venous pulse, no hepat ojugular reflux Chest: normal shape and normal respiratory effort Lungs: clear to auscultation and percussion Cardiac Exam: - irregular rate & rhythm, no murmurs gallops or rubs - normal S1, normal S2 Pulses: 2(+) throughout Abdomen: abdomen soft, non-tender, no abnormal masses and no hepatosplenomegaly Musculoskeletal: no gait disturbance, no joint inflammation, no deforming arthritis Extremities: no edema and no cyanosis Neuro: grossly normal exam Results & Data ([facility]) Vital Signs (Past 12 Hours) Vital Signs Temp Pulse Pulse Resp BP Pulse Ox O2 Del Method 03/15/22 12:15 37.0 C 75 20 159/56 H 98 Nasal Cannula 03/15/22 10:35 71 18 97 Nasal Cannula 03/15/22 09:00 Nasal Cannula 03/15/22 08:00 74 03/15/22 08:00 03/15/22 07:19 37.0 C 70 18 146/62 H 93 Nasal Cannula 03/15/22 07:17 70 18 90 Nasal Cannula 03/15/22 03:40 36.7 C 87 18 148/53 H 90 Nasal Cannula 03/15/22 02:22 77 18 96 Nasal Cannula O2 Del Method O2 Flow Rate O2 Flow Rate 03/15/22 12:15 3.5 03/15/22 10:35 3.5 03/15/22 09:00 3 03/15/22 08:00 03/15/22 08:00 Nasal Cannula 4 03/15/22 07:19 3.5 03/15/22 07:17 4 03/15/22 03:40 3.5 03/15/22 02:22 4 Laboratory Results Laboratory Results - last 24 hr 03/14/22 03/14/22 03/15/22 14:52 22:13 05:50 WBC 4.42 L RBC 1.97 L Hgb 7.9 L Hct 23.4 L MCV 118.8 H MCH 40.1 H MCHC 33.8 RDW Std Deviation 58.8 H RDW Coeff of Fior 13.5 Plt Count 102 L MPV 11.1 Platelet Estimate Decreased L PT INR APTT 38.4 H 34.7 H PTT Ratio 1.4 1.3 Sodium Potassium Chloride Carbon Dioxide Anion Gap BUN Creatinine Est Cr Clr Drug Dosing Est GFR ( Amer) Est GFR (Non-Af Amer) BUN/Creatinine Ratio Glucose Calcium Phosphorus Magnesium 03/15/22 03/15/22 03/15/22 05:50 05:50 05:50 WBC RBC Hgb Hct MCV MCH MCHC RDW Std Deviation RDW Coeff of Fior Plt Count MPV Platelet Estimate PT 11.1 INR 1.0 APTT 60.6 H* PTT Ratio 2.2 Sodium 139 Potassium 4.2 Chloride 103 Carbon Dioxide 26 Anion Gap 10 BUN 52 H Creatinine 9.08 H* D Est Cr Clr Drug Dosing 5.9 Est GFR ( Amer) 4.4 Est GFR (Non-Af Amer) 3.8 BUN/Creatinine Ratio 5.7 L Glucose 105 H Calcium 8.5 Phosphorus 4.4 Magnesium 1.9 Medications Administered Current Inpatient Medications Acetaminophen (Acetaminophen 325 Mg Tab) 650 mg PO Q4H PRN PRN Reason: Pain or Fever Stop: 04/12/22 13:42 Albuterol (Albut/Ipratrop 3mg/0.5mg Neb 3 Ml Vial) 3 ml NEB Q4R MARY; Protocol Stop: 04/12/22 14:59 Last Admin: 03/15/22 10:33 Dose: 3 ml Amiodarone HCl (Amiodarone 200 Mg Tab) 200 mg PO TIDM [facility] Stop: 04/13/22 16:59 Last Admin: 03/15/22 12:21 Dose: 200 mg Docusate Sodium (Docusate Sodium 100 Mg Cap) 100 mg PO BID PRN PRN Reason: Constipation Stop: 04/12/22 13:42 Fluticasone/Vilanterol (Fluticasone/Vilanterol 100/25mcg 14 Puffs/Inhaler) 1 puffs INH DAILY@2100 [facility] Stop: 04/13/22 20:59 Last Admin: 03/14/22 22:42 Dose: Not Given Guaifenesin (Guaifenesin 600 Mg Tabcr) 1,200 mg PO Q12 [facility] Stop: 04/12/22 20:59 Last Admin: 03/15/22 08:19 Dose: 1,200 mg Hydralazine HCl (Hydralazine Tab 50 Mg Tab) 100 mg PO BID [facility] Stop: 04/12/22 20:59 Last Admin: 03/15/22 08:19 Dose: 100 mg Doxycycline Hyclate 100 mg/ (Dextrose) 110 mls @ 50 mls/hr IV Q12H [facility] Stop: 03/20/22 14:59 Last Infusion: 03/15/22 05:09 Dose: Infused Ceftriaxone Sodium 2,000 mg/ (Dextrose) 70 mls @ 140 mls/hr IV Q24H [facility]; Protocol Stop: 03/20/22 13:59 Last Infusion: 03/14/22 15:57 Dose: Infused Heparin Sodium/Dextrose (Heparin Sodium/Dextrose) 25,000 units in 500 mls @ 25 mls/hr IV .Q20H [facility]; Protocol Stop: 04/12/22 16:44 Last Admin: 03/15/22 07:17 Dose: 1,250 units/hr, 25 mls/hr Sodium Chloride (Nss 1000ml) 1,000 mls @ 0 mls/hr IV .Q0M PRN PRN Reason: For Hemodialysis Use ONLY Stop: 03/15/22 17:50 Lidocaine/Prilocaine (Lidocaine/Prilocaine 2.5% Ea Crm) 1 each EXT UD [facility] Stop: 04/14/22 11:59 Lisinopril (Lisinopril 40 Mg Tab) 40 mg PO QAM [facility] Stop: 04/13/22 08:59 Last Admin: 03/15/22 08:19 Dose: 40 mg Sevelamer HCl (Sevelamer Hcl 800 Mg Tablet) 2,400 mg PO TIDM [facility] Stop: 04/12/22 16:59 Last Admin: 03/15/22 12:22 Dose: 2,400 mg Valacyclovir HCl (Valacyclovir Hcl 500 Mg Tablet) 1,000 mg PO QAM [facility] Stop: 03/16/22 08:59 Last Admin: 03/15/22 08:19 Dose: 1,000 mg Vitamin B Complex/Folic Acid (Nephrocaps) [facility] [place]: 04/13/22 08:59 Last Admin: 03/15/22 08:19 Dose: 1 cap Warfarin Sodium (Warfarin Sod 2 Mg Tab) 2 mg PO DAILY@1600 [facility] Stop: 04/13/22 15:59 Last Admin: 03/14/22 15:57 Dose: 2 mg
--- NOTE | 2022-03-15 15:32 | Hospitalist Progress Note ---
Date of Service March 15, 2022 Assessment & Plan (1) Atrial fibrillation with rapid ventricular response: Plan 77-year-old lady with PMH of T2DM with CKD on HD [TuThSa], HLD, secondary hyperparathyroidism of renal origin, COPD on 3 L oxygen at home, paroxysmal A. fib not anticoagulated due to prior bleeding issues and patient preference, HTN, anemia of CKD, general osteoarthritis presented to ED 03/13 from dialysis center due to increased heart rate chcf through dialysis, patient was noted to be hypotensive. Patient also reports ongoing cough for 4 to 5 days prior to arrival, reports clear sputum, reports having "all vaccines against COVID", denies palpitation or headache or dizziness or chest pain. Patient denies any problems swallowing or any incidence of choking on food. Patient reports smoking 2 to 3 cigarettes/day, patient has been cutting down since 1 year, prior to that patient was smoking 1 packs a day since age 18. Patient denies any use of alcohol or recreational drugs. Is full code. POA is her daughter Delphine per patient. She is being managed for the following: (1) Atrial fibrillation with rapid ventricular response: Patient presenting from dialysis for worsening cough and shortness of breath. In the ED, found to be in atrial fibrillation with RVR Patient with history of paroxysmal A. fib, typically rate controlled on diltiazem. Not anticoagulated due to previous bleeding issues and patient preference. Patient has severe mitral regurgitation and desires only medical therapy as per records. Patient is status post Cardizem drip, being evaluated by cardiology, on amiodarone. Monitor QTC. Patient is currently on heparin drip started at admission. Patient states that she had not previously wanted anticoagulation but would like to go with warfarin this time on 1218 AM, given history of GI bleed in the remote past and easy reversibility warfarin would be a better choice for her--->>> Pt declined warfarin and anticoagulation later in the day and reconfirmed on 03/15, pt doesn't want to be anticoagulated. Will DC her heparin drip. DC Warfarin. Continue telemetry monitoring. (2) Elevated troponin: likely type II NSTEMI/demand ischemia Plan: HS Trop 16.7 --> 103.5 --> 103.5 Patient denies chest pain Admitting EKG shows A. fib with RVR with ST depressions in the anterior leads. Suspect tachycardia induced. f/u next day EKG w/ sinus rhythm. Resting echo with EF of 65 to 70%, left ventricle with normal size and normal systolic function. Right ventricular systolic function normal. Likely demand ischemia secondary to rapid A. fib. (3) Likely Pneumonia: (4) COPD, moderate: (5) Chronic respiratory failure with hypoxia: Admitting CXR shows left basilar consolidation consistent with possible pneu monia Afebrile, no leukocytosis Respiratory viral panel negative S/p cefepime in the ED; will continue with IV ceftriaxone and IV doxycycline 03/13 Saturating well on chronic 3-3.5L O2 No wheezing on exam, will hold on steroids for now Pulmonary toilet with nebs, Mucinex, incentive spirometer, flutter valve Continue to monitor. Hypokalemia: ESRD on hemodialysis Nephrology for hemodialysis, monitor and replete electrolytes as appropriate. Other chronic medical conditions: HTN, diastolic CHF --> continue with home meds as able. DVT prophylaxis: Heparin SC from jenny, was on heparin drip until late afternoon which was dc'd per pt's wish. Full code Admission and Anticipated Discharge Date Admission Date: March 13, 2022 Subjective Patient seen and examined at bedside as a follow-up of atrial fibrillation with rapid ventricular response, elevated troponin, likely pneumonia. Patient was sitting up in chair eating lunch, on 3 L nasal cannula oxygen which is her baseline, reports no new acute event overnight, reports feeling "about the same", reports eating okay, has not had a bowel movement since admission yesterday, wouldn't want laxatives at this point, denies any headache or dizziness or chest pain or other review of symptoms. I was notified by RN yesterday evening that patient does not want to be anticoagulated and demanded that her warfarin be stopped. I confirmed with patient again today morning and discuassed about the pros and cons of starting anticoagulation, patient declined anticoagulation. We will stop her warfarin which she received 1 dose yesterday. Physical Exam Physical Exam: GENERAL: Alert and oriented x3. NAD, on 3L NC O2, Appears chronically ill. HEENT: No pallor, no icterus. Pupils equal, round and reactive to light. Oral mucosa moist. NECK: No JVD, no neck masses. HEART: S1 and S2 heard. nsr, regular rate and rhythm. No murmur, no gallop. RESPIRATORY SYSTEM: Normal AP diameter. No accessory muscle use. No wheezing, occ b/b crackles noted. ABDOMEN: Soft, bowel sounds present, nontender, no distention. CENTRAL NERVOUS SYSTEM: No facial droop. Speech is clear. Obeys simple commands. Moves extremities. EXTREMITIES: trace/1+ ble edema, no erythema seen. Results & Data Results & Data ([facility]) Vital Signs (Past 12 Hours) Vital Signs Temp Pulse Pulse Pulse Resp BP Pulse Ox 03/15/22 13:28 36.7 C 71 03/15/22 12:15 37.0 C 75 20 159/56 H 98 03/15/22 10:35 71 18 97 03/15/22 09:00 03/15/22 08:00 74 03/15/22 08:00 03/15/22 07:19 37.0 C 70 18 146/62 H 93 03/15/22 07:17 70 18 90 03/15/22 03:40 36.7 C 87 18 148/53 H 90 O2 Del Method O2 Del Method O2 Flow Rate O2 Flow Rate 03/15/22 13:28 03/15/22 12:15 Nasal Cannula 3.5 03/15/22 10:35 Nasal Cannula 3.5 03/15/22 09:00 Nasal Cannula 3 03/15/22 08:00 03/15/22 08:00 Nasal Cannula 4 03/15/22 07:19 Nasal Cannula 3.5 03/15/22 07:17 Nasal Cannula 4 03/15/22 03:40 Nasal Cannula 3.5
[2022-03-15] MEDS: cefTRIAXone SODIUM 2,000 MG in DEXTROSE 5% 50 ML IV SCH (16:19)
[2022-03-15] MEDS: FLUTICASONE/VILANTEROL 100/25MCG 14 PUFFS/INHALER INH SCH (19:57)
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
[2022-03-16] MEDS: ALBUT/IPRATROP 3MG/0.5MG NEB 3 ML VIAL NEB SCH ×6 (02:09→22:07)
[2022-03-16] MEDS: DOXYCYCLINE HYCLATE 100 MG in DEXTROSE 5% 100 ML IV SCH (03:48)
[2022-03-16 06:28] LABS: Hematocrit (blood only) 24.9 % (34.1-44.9); Hemoglobin 8.3 g/dl (12.0-16.0); Mean Corpuscular Hemoglobin 39.9 pg (25.0-34.0); Mean Corpuscular Hgb Conc 33.3 g/dL (32.0-36.0); Mean Corpuscular Volume 119.7 fL (80.0-100.0); Platelet Count 107 K/uL (130-400); RDW Coefficient of Variation 13.4 % (11.5-14.5); Red Blood Count 2.08 M/uL (3.93-5.22); White Blood Count 5.08 K/ul (4.8-10.8)
[2022-03-16 06:46] LABS: Partial Thromboplastin Time 28.1 Seconds (21.0-31.0); Prothrombin Time 10.9 Seconds (9.0-12.0)
--- NOTE | 2022-03-16 06:49 | Electrocardiogram Report ---
Test Reason : Blood Pressure : / mmHG Vent. Rate : 078 BPM Atrial Rate : 078 BPM P-R Int : 116 ms QRS Dur : 086 ms QT Int : 456 ms P-R-T Axes : 027 053 035 degrees QTc Int : 519 ms Normal sinus rhythm Nonspecific T wave abnormality Prolonged QT Abnormal ECG When compared with ECG of 13-MAR-2022 16:51, Premature atrial complexes are no longer Present IN interval has decreased Questionable change in QRS duration Borderline criteria for Anterior infarct are no longer Present QT has lengthened Confirmed by Willie Castro ([id number]) on 03/16/2022 6:48:54 AM Referred By: REFERRED SELF Confirmed By:Willie Castro
[2022-03-16 06:51] LABS: BUN Creatinine Ratio 4.7 (10-20); Calcium 8.3 mg/dl (8.5-10.1); Est GFR (African American) 5.6 ml/min; Est GFR (Non-African American) 4.8 ml/min; Potassium 4.4 mmol/L (3.5-5.1)
[2022-03-16] MEDS: SEVELAMER HCL 800 MG TABLET PO SCH ×3 (07:51→18:10)
[2022-03-16] MEDS: NEPHROCAPS PO SCH (07:52)
[2022-03-16] MEDS ORDERED: LIDOCAINE/PRILOCAINE 2.5% EA CRM EXT SCH (08:00)
[2022-03-16] MEDS ORDERED: LIDOCAINE 4% CREAM 15 GM TUBE EXT SCH (08:00)
[2022-03-16] MEDS: AMIODARONE 200 MG TAB PO SCH ×4 (08:15→18:10)
[2022-03-16] MEDS ORDERED: SODIUM CHLORIDE 0.9% 1000ML 1,000 ML IV PRN (08:32)
[2022-03-16] MEDS ORDERED: HEPARIN SOD (PORCINE) 1000 UNIT/ML IV ONE (08:32)
[2022-03-16] MEDS: guaiFENesin 600 MG TABCR PO SCH ×2 (08:58→20:00)
[2022-03-16] MEDS ORDERED: EPOETIN ALFA 20,000 UNITS/ML VIAL IV ONE (11:02)
[2022-03-16] MEDS: HEPARIN SOD (PORCINE) 1000 UNIT/ML IV SCH ×3 (12:24→13:24)
[2022-03-16] MEDS: hydrALAZINE TAB 50 MG TAB PO SCH ×2 (14:37→20:00)
[2022-03-16] MEDS: DOCUSATE SODIUM 100 MG CAP PO SCH ×2 (14:37→23:38)
[2022-03-16] MEDS: lisinopril 40 MG TAB PO SCH (14:38)
[2022-03-16] MEDS: cefTRIAXone SODIUM 2,000 MG in DEXTROSE 5% 50 ML IV SCH (15:22)
--- NOTE | 2022-03-16 15:40 | Hospitalist Progress Note ---
Date of Service March 16, 2022 Assessment & Plan (1) Atrial fibrillation with rapid ventricular response: Plan 77-year-old lady with PMH of T2DM with CKD on HD [TuThSa], HLD, secondary hyperparathyroidism of renal origin, COPD on 3 L oxygen at home, paroxysmal A. fib not anticoagulated due to prior bleeding issues and patient preference, HTN, anemia of CKD, general osteoarthritis presented to ED 03/13 from dialysis center due to increased heart rate senior care through dialysis, patient was noted to be hypotensive. Patient also reports ongoing cough for 4 to 5 days prior to arrival, reports clear sputum, reports having "all vaccines against COVID", denies palpitation or headache or dizziness or chest pain. Patient denies any problems swallowing or any incidence of choking on food. Patient reports smoking 2 to 3 cigarettes/day, patient has been cutting down since 1 year, prior to that patient was smoking 1 packs a day since age 18. Patient denies any use of alcohol or recreational drugs. Is full code. POA is her daughter Delphine per patient. She is being managed for the following: (1) Atrial fibrillation with rapid ventricular response: Patient presenting from dialysis for worsening cough and shortness of breath. In the ED, found to be in atrial fibrillation with RVR Patient with history of paroxysmal A. fib, typically rate controlled on diltiazem. Not anticoagulated due to previous bleeding issues and patient preference. Patient has severe mitral regurgitation and desires only medical therapy as per records. Patient is status post Cardizem drip, being evaluated by cardiology, on amiodarone. Monitor QTC. Likely dc jenny on likely bid amiodarone per d/w cardio today. Patient states that she had not previously wanted anticoagulation but would like to go with warfarin this time on 1218 AM, given history of GI bleed in the remote past and easy reversibility warfarin would be a better choice for her--->>> Pt declined warfarin and anticoagulation later in the day and reconfirmed on 03/15, pt doesn't want to be anticoagulated. Continue telemetry monitoring. (2) Elevated troponin: likely type II NSTEMI/demand ischemia Plan: HS Trop 16.7 --> 103.5 --> 103.5 Patient denies chest pain Admitting EKG shows A. fib with RVR with ST depressions in the anterior leads. Suspect tachycardia induced. f/u next day EKG w/ sinus rhythm. Resting echo with EF of 65 to 70%, left ventricle with normal size and normal systolic function. Right ventricular systolic function normal. Likely demand ischemia secondary to rapid A. fib. (3) Likely Pneumonia: (4) COPD, moderate: (5) Chronic respiratory failure with hypoxia: Admitting CXR shows left basilar consolidation consistent with possible pneumonia Afebrile, no leukocytosis Respiratory viral panel negative S/p cefepime in the ED; will continue with IV ceftriaxone and IV doxycycline 03/13 Saturating well on chronic 3-3.5L O2 No wheezing on exam, will hold on steroids for now Pulmonary toilet with nebs, Mucinex, incentive spirometer, flutter valve Continue to monitor. Hypokalemia: ESRD on hemodialysis Nephrology for hemodialysis, monitor and replete electrolytes as appropriate. Other chronic medical conditions: HTN, diastolic CHF --> continue with home meds as able. DVT prophylaxis: Heparin SC from j[facility], was on heparin drip until late afternoon which was dc'd per pt's wish. Full code Dispo: Tele monitoring today, adjust amio dose again jenny, DC likely jenny on amio w/ close f/u w/ cardio. Admission and Anticipated Discharge Date Admission Date: March 13, 2022 Subjective Patient seen and examined at bedside as a follow-up of atrial fibrillation with rapid ventricular response, elevated troponin, likely pneumonia. Patient was lying in bed, getting hemodialysis, on 3 L nasal cannula oxygen which is her baseline, reports no new acute event overnight, reports feeling "about the same", reports eating okay, has not had a bowel movement since admission yesterday, agreeable to colace, denies any headache or dizziness or chest pain or other review of symptoms. Physical Exam Physical Exam: GENERAL: Alert and oriented x3. NAD, on 3L NC O2, Appears chronically ill. HEENT: No pallor, no icterus. Pupils equal, round and reactive to light. Oral mucosa moist. NECK: No JVD, no neck masses. HEART: S1 and S2 heard. nsr, regular rate and rhythm. No murmur, no gallop. RESPIRATORY SYSTEM: Normal AP diameter. No accessory muscle use. No wheezing, occ b/b crackles noted. ABDOMEN: Soft, bowel sounds present, nontender, no distention. CENTRAL NERVOUS SYSTEM: No facial droop. Speech is clear. Obeys simple commands. Moves extremities. EXTREMITIES: trace/1+ ble edema, no erythema seen. Results & Data Results & Data ([facility]) Vital Signs (Past 12 Hours) Vital Signs Temp Pulse Pulse Pulse Pulse Resp BP 03/16/22 14:41 36.4 C L 64 18 03/16/22 14:06 36.5 C 88 03/16/22 13:30 63 143/49 H 03/16/22 13:00 57 L 127/81 03/16/22 12:30 63 139/60 03/16/22 12:00 65 142/52 H 03/16/22 11:57 36.6 C 60 18 03/16/22 11:30 65 150/52 H 03/16/22 11:00 66 149/58 H 03/16/22 10:30 68 149/56 H 03/16/22 10:29 67 152/86 H 03/16/22 10:18 36.5 C 03/16/22 10:49 67 03/16/22 07:28 69 18 03/16/22 07:25 37.0 C 69 18 03/16/22 03:46 36.6 C 90 19 BP Pulse Ox O2 Del Method O2 Flow Rate 03/16/22 14:41 166/63 H 100 Nasal Cannula 2 03/16/22 14:06 167/55 H 03/16/22 13:30 03/16/22 13:00 03/16/22 12:30 03/16/22 12:00 03/16/22 11:57 145/77 H 97 Nasal Cannula 03/16/22 11:30 03/16/22 11:00 03/16/22 10:30 03/16/22 10:29 03/16/22 10:18 03/16/22 10:49 03/16/22 07:28 95 Nasal Cannula 3 03/16/22 07:25 128/66 97 Nasal Cannula 3 03/16/22 03:46 136/77 93 Nasal Cannula 3
[2022-03-16] MEDS: DOXYCYCLINE HYCLATE 100 MG CAP PO SCH (19:59)
[2022-03-16] MEDS: FLUTICASONE/VILANTEROL 100/25MCG 14 PUFFS/INHALER INH SCH (20:00)
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
--- NOTE | 2022-03-16 21:55 | Electrocardiogram Report ---
Test Reason : Blood Pressure : / mmHG Vent. Rate : 071 BPM Atrial Rate : 071 BPM P-R Int : 232 ms QRS Dur : 094 ms QT Int : 434 ms P-R-T Axes : 068 055 063 degrees QTc Int : 471 ms Poor data quality, interpretation may be adversely affected Sinus rhythm with 1st degree A-V block Otherwise normal ECG When compared with ECG of 14-MAR-2022 06:15, MA interval has increased Confirmed by Willie Castro ([id number]) on 03/16/2022 9:55:13 PM Referred By: REFERRED SELF Confirmed By:Willie Castro
[2022-03-17] MEDS: ALBUT/IPRATROP 3MG/0.5MG NEB 3 ML VIAL NEB SCH ×6 (02:03→23:08)
[2022-03-17 06:43] LABS: Hematocrit (blood only) 25.3 % (34.1-44.9); Hemoglobin 8.3 g/dl (12.0-16.0); Mean Corpuscular Hemoglobin 40.3 pg (25.0-34.0); Mean Corpuscular Hgb Conc 32.8 g/dL (32.0-36.0); Mean Corpuscular Volume 122.8 fL (80.0-100.0); Mean Platelet Volume 10.8 fL (9.4-12.3); Platelet Count 98 K/uL (130-400); RDW Coefficient of Variation 13.5 % (11.5-14.5); Red Blood Count 2.06 M/uL (3.93-5.22); White Blood Count 4.43 K/ul (4.8-10.8)
[2022-03-17 06:56] LABS: BUN Creatinine Ratio 3.4 (10-20); Calcium 8.1 mg/dl (8.5-10.1); Creatinine Clr Calc Pharmacy 9.2 ml/min; Est GFR (African American) 7.8 ml/min; Est GFR (Non-African American) 6.8 ml/min; Magnesium 1.8 mg/dl (1.7-2.4); Phosphorus 3.5 mg/dl (2.5-4.9); Potassium 3.9 mmol/L (3.5-5.1)
[2022-03-17] MEDS: hydrALAZINE TAB 50 MG TAB PO SCH ×2 (08:16→19:52)
[2022-03-17] MEDS: guaiFENesin 600 MG TABCR PO SCH ×2 (08:16→19:52)
[2022-03-17] MEDS: SEVELAMER HCL 800 MG TABLET PO SCH ×4 (08:16→17:12)
[2022-03-17] MEDS: DOXYCYCLINE HYCLATE 100 MG CAP PO SCH ×2 (08:16→19:52)
[2022-03-17] MEDS: lisinopril 40 MG TAB PO SCH (08:16)
[2022-03-17] MEDS: NEPHROCAPS PO SCH (08:16)
[2022-03-17] MEDS: AMIODARONE 200 MG TAB PO SCH ×2 (08:16→17:12)
[2022-03-17] MEDS: DOCUSATE SODIUM 100 MG CAP PO SCH ×2 (08:17→19:42)
--- NOTE | 2022-03-17 09:49 | Cardiology Progress Note ---
Date of Service March 17, 2022 Assessment & Plan (1) Atrial fibrillation with rapid ventricular response: (2) ESRD (end stage renal disease) on dialysis: (3) Chronic respiratory failure with hypoxia: (4) COPD, moderate: Plan The patient is resting comfortably today. She tolerated dialysis without any arrhythmias. She is maintaining sinus rhythm. I reduce her dose of amiodarone to 200 mg twice daily. She should stay on amiodarone 200 mg twice daily for about a week and then the dosage can be lowered to 200 mg daily. Admission and Anticipated Discharge Date Admission Date: March 13, 2022 Subjective The patient is resting comfortably. Review of Systems Review of Systems: Review of Systems: See HPI for pertinent positives. All other 10 point review of systems are negative. Physical Exam Physical Exam: General: no acute distress and stated age Head: normocephalic, no masses, lesions, tenderness or abnormalities Eyes: conjunctiva are pink and non-injected, sclera clear Neck: supple, no adenopathy, no bruits, normal jugular venous pulse, no hepatojugular reflux Chest: normal shape and normal respiratory effort Lungs: clear to auscultation and percussion Cardiac Exam: - irregular rate & rhythm, no murmurs gallops or rubs - normal S1, normal S2 Pulses: 2(+) throughout Abdomen: abdomen soft, non-tender, no abnormal masses and no hepatosplenomegaly Musculoskeletal: no gait disturbance, no joint inflammation, no deforming arthritis Extremities: no edema and no cyanosis Neuro: grossly normal exam Results & Data ([facility]) Vital Signs (Past 12 Hours) Vital Signs Temp Pulse Pulse Resp BP Pulse Ox O2 Del Method 03/17/22 08:00 67 03/17/22 08:00 Nasal Cannula 03/17/22 08:25 76 18 93 Nasal Cannula 03/17/22 07:21 36.6 C 70 20 146/61 H 94 Nasal Cannula 03/17/22 03:59 36.9 C 68 18 125/71 96 Nasal Cannula 03/17/22 02:03 18 92 Nasal Cannula 03/16/22 23:16 37.1 C 74 18 146/68 H 97 Nasal Cannula 03/16/22 22:07 72 20 90 Nasal Cannula O2 Flow Rate 03/17/22 08:00 03/17/22 08:00 3 03/17/22 08:25 3 03/17/22 07:21 3 03/17/22 03:59 3 03/17/22 02:03 3 03/16/22 23:16 3 03/16/22 22:07 3 Laboratory Results Laboratory Results - last 24 hr 03/17/22 03/17/22 05:58 05:58 WBC 4.43 L RBC 2.06 L Hgb 8.3 L Hct 25.3 L MCV 122.8 H MCH 40.3 H MCHC 32.8 RDW Std Deviation 62.0 H RDW Coeff of Fior 13.5 Plt Count 98 L MPV 10.8 Sodium 140 Potassium 3.9 Chloride 103 Carbon Dioxide 28 Anion Gap 9 BUN 19 Creatinine 5.67 H* D Est Cr Clr Drug Dosing 9.2 Est GFR ( Amer) 7.8 Est GFR (Non-Af Amer) 6.8 BUN/Creatinine Ratio 3.4 L Glucose 92 Calcium 8.1 L Phosphorus 3.5 Magnesium 1.8 Medications Administered Current Inpatient Medications Acetaminophen (Acetaminophen 325 Mg Tab) 650 mg PO Q4H PRN PRN Reason: Pain or Fever Stop: 04/12/22 13:42 Albuterol (Albut/Ipratrop 3mg/0.5mg Neb 3 Ml Vial) 3 ml NEB Q4R [facility]; Protocol Stop: 04/12/22 14:59 Last Admin: 03/17/22 08:25 Dose: 3 ml Amiodarone HCl (Amiodarone 200 Mg Tab) 200 mg PO BIDM [facility] Stop: 04/16/22 16:59 Docusate Sodium (Docusate Sodium 100 Mg Cap) 100 mg PO BID [facility] Stop: 04/15/22 11:40 Last Admin: 03/17/22 08:17 Dose: Not Given Doxycycline Hyclate (Doxycycline Hyclate 100 Mg Cap) 100 mg PO Q12H [facility] Stop: 03/20/22 18:59 Last Admin: 03/17/22 08:16 Dose: 100 mg Fluticasone/Vilanterol (Fluticasone/Vilanterol 100/25mcg 14 Puffs/Inhaler) 1 puffs INH DAILY@2100 [facility] Stop: 04/13/22 20:59 Last Admin: 03/16/22 20:00 Dose: 1 puffs Guaifenesin (Guaifenesin 600 Mg Tabcr) 1,200 mg PO Q12 [facility] Stop: 04/12/22 20:59 Last Admin: 03/17/22 08:16 Dose: 1,200 mg Hydralazine HCl (Hydralazine Tab 50 Mg Tab) 100 mg PO BID [facility] Stop: 04/12/22 20:59 Last Admin: 03/17/22 08:16 Dose: 100 mg Ceftriaxone Sodium 2,000 mg/ (Dextrose) 70 mls @ 140 mls/hr IV Q24H [facility]; Protocol Stop: 03/20/22 13:59 Last Infusion: 03/16/22 16:47 Dose: Infused Lidocaine (Lidocaine 4% Cream 15 Gm Tube) 1 appln EXT UD [facility] Stop: 04/14/22 11:59 Lisinopril (Lisinopril 40 Mg Tab) 40 mg PO QAM [facility] Stop: 04/13/22 08:59 Last Admin: 03/17/22 08:16 Dose: 40 mg Sevelamer HCl (Sevelamer Hcl 800 Mg Tablet) 2,400 mg PO TIDM [facility] Stop: 04/12/22 16:59 Last Admin: 03/17/22 08:16 Dose: 2,400 mg Vitamin B Complex/Folic Acid (Nephrocaps) 1 cap PO QAM [facility] Stop: 04/13/22 08:59 Last Admin: 03/17/22 08:16 Dose: 1 cap
--- NOTE | 2022-03-17 12:56 | Hospitalist Progress Note ---
Date of Service March 17, 2022 Assessment & Plan (1) Atrial fibrillation with rapid ventricular response: Plan 77-year-old lady with PMH of T2DM with CKD on HD [TuThSa], HLD, secondary hyperparathyroidism of renal origin, COPD on 3 L oxygen at home, paroxysmal A. fib not anticoagulated due to prior bleeding issues and patient preference, HTN, anemia of CKD, general osteoarthritis presented to ED 03/13 from dialysis center due to increased heart rate usp through dialysis, patient was noted to be hypotensive. Patient also reports ongoing cough for 4 to 5 days prior to arrival, reports clear sputum, reports having "all vaccines against COVID", denies palpitation or headache or dizziness or chest pain. Patient denies any problems swallowing or any incidence of choking on food. Patient reported smoking 2 to 3 cigarettes/day. Patient has been cutting down since 1 year, prior to that patient was smoking 1 packs a day since age 18. She is being managed for the following: Atrial fibrillation with rapid ventricular response: Patient presenting from dialysis for worsening cough and shortness of breath. In the ED, found to be in atrial fibrillation with RVR Patient with history of paroxysmal A. fib, typically rate controlled on dilt iazem. Not anticoagulated due to previous bleeding issues and patient preference. Patient has severe mitral regurgitation and desires only medical therapy as per records. Initially received Cardize drip [employer]per on board. Was started on amiodarone loading Plan to discharge on amiodarone 200mg bid x 1 week and then 200mg daily afterwards per Cards Patient doesn't want to be anticoagulated. Elevated troponin: likely type II NSTEMI/demand ischemia HS Trop 16.7 --> 103.5 --> 103.5 Patient denies chest pain Admitting EKG shows A. fib with RVR with ST depressions in the anterior leads. Suspect tachycardia induced. f/u next day EKG w/ sinus rhythm. Resting echo with EF of 65 to 70%, left ventricle with normal size and normal systolic function. Right ventricular systolic function normal. Likely demand ischemia secondary to rapid A. fib. Likely Pneumonia: COPD, moderate: Chronic respiratory failure with hypoxia: Admitting CXR shows left basilar consolidation consistent with possible pneumonia Afebrile, no leukocytosis Respiratory viral panel negative S/p cefepime in the ED; currently on IV ceftriaxone and IV doxycycline to complete 5 day therapy Saturating well on chronic 3L O2 No wheezing on exam Pulmonary toilet with nebs, Mucinex, incentive spirometer, flutter valve Continue to monitor. ESRD on hemodialysis Nephrology for hemodialysis, monitor and replete electrolytes as appropriate. Other chronic medical conditions: HTN, diastolic CHF --> continue with home meds as able. Full code Dispo: Discussed with Nephro. Due to concerns patient may not be able to get to HD center tomorrow, will get HD tomorrow AM prior to dc. Plan to dc home tomorrow after HD Admission and Anticipated Discharge Date Admission Date: March 13, 2022 Subjective Patient seen and examined Reports feeling better today. Denied any new symptoms Denied chest pain, palpitations, shortness of breath at rest Reports occasional cough On her chronic 3l/min nasal cannula Denied any nausea, vomiting, abd pain. Reports constipation is resolved No fevers Physical Exam Constitutional: + well hydrated; no acute distress Eyes: PERRL, conjunctivae normal, anicteric sclerae ENMT: external ear and nose normal, oropharynx normal Respiratory: normal respiratory effort; no respiratory distress Auscultation: + diminished lung sounds Cardiovascular: Rate/Rhythm: + irregularly irregular S1 S2 Gastrointestinal (Abdomen): normal bowel sounds, soft, nontender, no hepatosplenomegaly Neurologic: PERRL, EOMI, accommodation nl, no face palsy, no dysarthria Psychiatric: A+Ox3, euthymic affect Results & Data Results & Data ([facility]) Vital Signs (Past 12 Hours) Vital Signs Temp Pulse Pulse Resp BP Pulse Ox O2 Del Method 03/17/22 12:00 64 18 98 Nasal Cannula 03/17/22 11:16 36.6 C 64 19 132/68 97 Nasal Cannula 03/17/22 08:00 67 03/17/22 08:00 Nasal Cannula 03/17/22 08:25 76 18 93 Nasal Cannula 03/17/22 07:21 36.6 C 70 20 146/61 H 94 Nasal Cannula 03/17/22 03:59 36.9 C 68 18 125/71 96 Nasal Cannula 03/17/22 02:03 18 92 Nasal Cannula O2 Flow Rate 03/17/22 12:00 3 03/17/22 11:16 3 03/17/22 08:00 03/17/22 08:00 3 12/21/22 08:25 3 03/17/22 07:21 3 03/17/22 03:59 3 03/17/22 02:03 3 Laboratory Results Abnormal lab results 03/17/22 03/17/22 Range/Units 05:58 05:58 WBC 4.43 L (4.8-10.8) K/ul RBC 2.06 L (3.93-5.22) M/uL Hgb 8.3 L (12.0-16.0) g/dl Hct 25.3 L (34.1-44.9) % MCV 122.8 H (80.0-100.0) fL MCH 40.3 H (25.0-34.0) pg RDW Std Deviation 62.0 H (36.4-46.3) fL Plt Count 98 L (130-400) K/uL Creatinine 5.67 H* D (0.6-1.2) mg/dl BUN/Creatinine Ratio 3.4 L (10-20) Calcium 8.1 L (8.5-10.1) mg/dl
[2022-03-17] MEDS: cefTRIAXone SODIUM 2,000 MG in DEXTROSE 5% 50 ML IV SCH (16:10)
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
[2022-03-17] MEDS: FLUTICASONE/VILANTEROL 100/25MCG 14 PUFFS/INHALER INH SCH (19:53)
[2022-03-18] MEDS: ALBUT/IPRATROP 3MG/0.5MG NEB 3 ML VIAL NEB SCH ×4 (02:14→16:12)
[2022-03-18 05:33] LABS: Calcium 8.4 mg/dl (8.5-10.1); Creatinine Clr Calc Pharmacy 6.7 ml/min; Est GFR (African American) 5.4 ml/min; Est GFR (Non-African American) 4.6 ml/min
[2022-03-18] MEDS ORDERED: EPOETIN ALFA 20,000 UNITS/ML VIAL IV ONE (08:30)
[2022-03-18] MEDS ORDERED: SODIUM CHLORIDE 0.9% 1000ML 1,000 ML IV PRN (08:30)
[2022-03-18] MEDS ORDERED: HEPARIN SOD (PORCINE) 1000 UNIT/ML IV ONE (08:30)
[2022-03-18] MEDS: HEPARIN SOD (PORCINE) 1000 UNIT/ML IV SCH ×3 (10:20→12:20)
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
[2022-03-18] MEDS: AMIODARONE 200 MG TAB PO SCH (14:18)
[2022-03-18] MEDS: DOXYCYCLINE HYCLATE 100 MG CAP PO SCH (14:18)
[2022-03-18] MEDS: guaiFENesin 600 MG TABCR PO SCH (14:18)
[2022-03-18] MEDS: lisinopril 40 MG TAB PO SCH (14:18)
[2022-03-18] MEDS: DOCUSATE SODIUM 100 MG CAP PO SCH (14:18)
[2022-03-18] MEDS: SEVELAMER HCL 800 MG TABLET PO SCH ×2 (14:18→14:19)
[2022-03-18] MEDS: hydrALAZINE TAB 50 MG TAB PO SCH (14:18)
[2022-03-18] MEDS: NEPHROCAPS PO SCH (14:18)
--- NOTE | 2022-03-18 16:27 | Discharge Summary ---
Discharge Summary Date of Service March 18, 2022 Notes For Next Care Provider Needs to follow up with Cardiology Medication Changes From Visit Started on amiodarone 200mg bid till 03/23/22, then 200mg daily afterwards Diltiazem was discontinued Admission HPI Per Admitting Provider 77-year-old female with PMH diet-controlled DM type II, dyslipidemia, oxygen dependent COPD, paroxysmal atrial fibrillation not anticoagulated due to prior bleeding issues and patient preference, HTN, ESRD on HD, moderate to severe mitral regurgitation with conservative medical management preferred by patient, and other problems listed below who presents the ED for evaluation of cough and shortness of breath. Patient reports an ongoing cough for the past 4 to 5 days. While at dialysis today, cough became acutely worse and patient reports associated shortness of breath. She was also reportedly tachycardic and hypotensive. Patient was sent to the ED for further evaluation. In the ED, patient was found to be in atrial fibrillation with RVR with a stable BP. Patient reports cough has been productive for clear sputum. She denies fevers and chills. No chest pain or palpitations. Denies lightheadedness, dizziness, diaphoresis, syncopal events. No abdominal pain, nausea, vomiting, diarrhea. In the ED, CXR shows left basilar consolidation. Patient was given a 10 mg diltiazem IV bolus followed by a diltiazem drip. She was also given IV cefepime. Admission Exam Per Admitting Provider Constitutional: WD/WN, vitals as above Eyes: PERRL, conjunctivae normal, anicteric sclerae ENMT: external ear and nose normal, oropharynx normal Respiratory: normal respiratory effort; no respiratory distress Auscultation: + diminished lung sounds; no crackles, no rhonchi and no wheezes Cardiovascular: Rate/Rhythm: + tachycardic and + irregularly irregular Vessels: normal peripheral pulses Extremities: no edema Gastrointestinal (Abdomen): normal bowel sounds, soft, nontender, no hepatosplenomegaly Musculoskeletal: no cyanosis or clubbing, extremities motor strength 5/5 Skin: no rashes, warm and dry Neurologic: PERRL, EOMI, accommodation nl, no face palsy, no dysarthria Psychiatric: A+Ox3, euthymic affect Principal Dx & Hospital Course #1 = Principal Diagnosis (1) Atrial fibrillation with rapid ventricular response: Plan 77-year-old lady with PMH of T2DM with CKD on HD [TuThSa], HLD, secondary hyperparathyroidism of renal origin, COPD on 3 L oxygen at home, paroxysmal A. fib not anticoagulated due to prior bleeding issues and patient preference, HTN, anemia of CKD, general osteoarthritis presented to ED 03/13 from dialysis center due to increased heart rate longterm through dialysis, patient was noted to be hypotensive. Patient also reports ongoing cough for 4 to 5 days prior to arrival, reports clear sputum, reports having "all vaccines against COVID", denies palpitation or headache or dizziness or chest pain. Patient denies any problems swallowing or any incidence of choking on food. Patient reported smoking 2 to 3 cigarettes/day. Patient has been cutting down since 1 year, prior to that patient was smoking 1 packs a day since age 18. She is being managed for the following: Atrial fibrillation with rapid ventricular response: Patient presenting from dialysis for worsening cough and shortness of breath. In the ED, found to be in atrial fibrillation with RVR Patient with history of paroxysmal A. fib, typically rate controlled on diltiazem. Not anticoagulated due to previous bleeding issues and patient preference. Patient has severe mitral regurgitation and desires only medical therapy as per records. Initially received Cardizem drip Section Beamer evaluated Was started on amiodarone Discharged on amiodarone 200mg bid x 1 week and then 200mg daily afterwards per Cards Diltiazem discontinued Patient doesn't want to be anticoagulated. Elevated troponin: likely type II NSTEMI/demand ischemia HS Trop 16.7 --> 103.5 --> 103.5 Patient denies chest pain Admitting EKG shows A. fib with RVR with ST depressions in the anterior leads. Suspect tachycardia induced. Resting echo with EF of 65 to 70%, left ventricle with normal size and normal systolic function. Right ventricular systolic function normal. Likely demand ischemia secondary to rapid A. fib. Likely Pneumonia: COPD, moderate: Chronic respiratory failure with hypoxia: Admitting CXR shows left basilar consolidation consistent with possible pneumonia Afebrile, no leukocytosis Respiratory viral panel negative Completed 5 days of antibiotic therapy Saturating well on chronic 3L O2 ESRD on hemodialysis Continue HD Discharge Exam Constitutional + well hydrated; no acute distress Eyes PERRL, conjunctivae normal, anicteric sclerae ENMT external ear and nose normal, oropharynx normal Respiratory normal respiratory effort; no respiratory distress Auscultation: + diminished lung sounds Cardiovascular Rate/Rhythm: + irregularly irregular S1 S2 Gastrointestinal (Abdomen) normal bowel sounds, soft, nontender, no hepatosplenomegaly Musculoskeletal No pedal edema Neurologic PERRL, EOMI, accommodation nl, no face palsy, no dysarthria Psychiatric A+Ox3, euthymic affect Updated Medication List Medication Instructions Recorded Confirmed Type ergocalciferol (vitamin D2) 1,250 50,000 unit PO MONTHLY 09/26/18 03/13/22 History mcg (50,000 unit) capsule hydralazine 50 mg tablet 100 mg PO BID 09/26/18 03/13/22 History ipratropium 0.5 mg-albuterol 3 mg 3 ml inhalation QID PRN Shortness 09/26/18 03/13/22 History (2.5 mg base)/3 mL nebulization Of Breath soln vitamin B complex-vitamin C-folic 1 tab PO QAM 09/26/18 03/13/22 History acid 0.8 mg tablet (Arabella-Tika) fluticasone propionate 50 2 spray intranasal HS 01/18/19 03/13/22 History mcg/actuation nasal spray,suspension sevelamer carbonate 800 mg tablet 2,400 mg PO TIDM 01/18/19 03/13/22 History albuterol sulfate 90 mcg/actuation 2 puff inhalation Q4H PRN Wheezing 04/05/19 03/13/22 History aerosol inhaler acetaminophen 325 mg tablet 650 mg PO Q6H PRN Pain 04/14/21 03/13/22 History (Tylenol) camphor-menthol 0.5 %-0.5 % lotion 1 applic topical DIRECTED PRN 04/14/21 03/13/22 History Itching docusate sodium 100 mg capsule 100 mg PO BID PRN Constipation 04/14/21 03/13/22 History (Colace) epoetin gabriel 10,000 unit/mL 0 unit IV DIRECTED 04/14/21 03/13/22 History injection solution (Procrit) lidocaine-prilocaine 2.5 %-2.5 % 1 applic topical DIRECTED PRN 04/14/21 03/13/22 History topical cream PRIOR TO DIALYSIS lisinopril 40 mg tablet 40 mg PO QAM 04/14/21 03/13/22 History loperamide 2 mg capsule (Imodium 2 mg PO QID PRN Diarrhea 04/14/21 03/13/22 History A-D) valacyclovir 1 gram tablet 1,000 mg PO QAM 04/14/21 03/13/22 History fluorometholone 0.1 % eye 1 drp OPL QAM 01/25/22 03/13/22 History drops,suspension fluticasone 250 mcg-salmeterol 50 1 inh inhalation BID 01/25/22 03/13/22 History mcg/dose blistr powdr for inhalation (Advair Diskus) amiodarone 200 mg tablet See Rx Instructions .Route 03/18/22 Rx .COMPLEX #60 tabs Hospital Stay Data Consultations 03/13/22 12:30 ED Decision to Admit Stat 03/13/22 13:43 Consult Nephrology Routine 03/13/22 16:44 Consult Cardiology Routine Pending Results Patient Have Any Pending Studies at Discharge: No Discharge Instructions Given to Patient (Per Discharging Provider) Mrs Velasco. You came to the hospital complaining of worsening cough and shortness of breath. You were evaluated and managed for Afib with rapid ventricular rate and pneumonia. You completed antibiotics in the hospital. You were started on amiodarone by the lens grinding machine operator. Please take this 200mg (1 tab) twice a day until 03/23/22. Then take only 200mg (1 tab) once a day afterwards. Please ensure follow up with your Primary Doctor and Section Beamer. PLEASE STOP TAKING DILTIAZEM It was a pleasure taking care of you. Total Time Total Time Spent Total Time Spent (In Minutes): 50 Total Time Includes: Examination of the Patient, Discharge Planning, Medication Reconciliation and Communication With Other Providers
== END 2022-03-18 17:19 | disposition home or self-care (01) | DRG 280 ==
LOC: ED 10:03 → SUATTDRO 12:15 → 4W 12:15

== ENCOUNTER 2022-05-12 06:03 | Inpatient (IN) ==
[2022-05-12 06:36] LABS: Basophils # (auto) 0.05 K/uL (0-0.2); Basophils % (auto) 0.4 %; Eosinophils # (auto) 0.01 K/uL (0-0.50); Eosinophils % (auto) 0.1 %; Hematocrit (blood only) 34.6 % (37.0-47.0); Hemoglobin 11.9 g/dl (12.0-16.0); Immature Granulocytes # (auto) 0.07 K/uL (0.01-0.20); Immature Granulocytes % (auto) 0.6 %; Lymphocytes # (auto) 0.47 K/uL (1.2-3.4); Lymphocytes % (auto) 3.9 %; Mean Corpuscular Hemoglobin 39.7 pg (25.0-34.0); Mean Corpuscular Hgb Conc 34.4 g/dL (32.0-36.0); Mean Corpuscular Volume 115.3 fL (80.0-100.0); Mean Platelet Volume 10.9 fL (9.4-12.4); Monocytes # (auto) 0.88 K/uL (0.11-0.59); Monocytes % (auto) 7.3 %; Neutrophils # (auto) 10.58 K/uL (1.40-6.50); Neutrophils % (auto) 87.7 %; Platelet Count 197 K/uL (130-400); RDW Coefficient of Variation 13.6 % (11.5-14.5); RDW Standard Deviation 57.6 fL (36.4-46.3); White Blood Count 12.06 K/ul (4.8-10.8)
[2022-05-12] MEDS ORDERED: MoRPHine SULFATE 2 MG/ML CARP IV PRN (06:41)
[2022-05-12] MEDS ORDERED: ACETAMINOPHEN 1,000 MG/100 ML VIAL IV STA (06:45)
[2022-05-12 07:01] LABS: Albumin Level 4.1 gm/dl (3.4-5.0); Bilirubin,Total 0.7 mg/dl (0.2-1.0); Calcium 9.3 mg/dl (8.5-10.1); Magnesium 1.9 mg/dl (1.7-2.4); Potassium 4.4 mmol/L (3.5-5.1)
[2022-05-12 07:07] LABS: Rouleaux 1+
--- NOTE | 2022-05-12 07:11 | XRay Report ---
SINGLE VIEW CHEST CLINICAL HISTORY: Trauma. FINDINGS: 2 AP, portable, upright chest radiographs are compared to study dated 03/13/2022 and correl ated with chest CT dated 04/29/2021. The examination is degraded by portable technique, apical lordotic positioning, and patient rotation. The heart is enlarged without atherosclerotic calcification of th e thoracic aorta. The pulmonary vasculature is noncongested. Emphysema and chronic interstitial thick ening is similar to previous. Scarring/atelectasis is noted at the lung bases. The lungs and pleural spaces are otherwise clear. No pneumothorax is seen. The skeletal structures are osteopenic. The bony thorax is grossly intact. Calcific tendinopathy suggested in the right shoulder. IMPRESSION: Cardiomegaly and emphysema with no acute cardiopulmonary abnormality identified. ACT 112: Negative or not required by law. Electronically signed by: Luigi García M.D. 05/12/2022 7:09 AM
[2022-05-12 07:22] LABS: Partial Thromboplastin Time 27.4 Seconds (21.0-31.0); Prothrombin Time 10.8 Seconds (9.0-12.0)
[2022-05-12] MEDS: MoRPHine SULFATE 4 MG/ML 1 ML CARP\\VIAL IV PRN ×2 (07:28→11:23)
--- NOTE | 2022-05-12 07:32 | Emergency Department Note ---
Impression & Plan Rhabdomyolysis, Closed sacral fracture, Fall from standing, Lytic bone lesion of hip, Acetabular fracture, Glenoid fracture of shoulder, ESRD on hemodialysis ED Provider Note NAME: VALERIA URIAS AGE: 77 SEX: F ARRIVES VIA: Ambulance INFORMANT: Patient ED PROVIDER(S): Max Velez MD CHIEF COMPLAINT: Fall PLAN: Disposition: Admit MEDICAL DECISION MAKING: The patient is a pleasant 77-year-old woman with a past medical history of ESRD on HD TRS, COPD on home oxygen, atrial fibrillation not on anticoagulation per her report, hypertension, hyperlipidemia who presents emergency department via EMS for evaluation after a fall with prolonged downtime where she reports falling around 6:30 PM last night and was not found until this morning in her enclosed porch when she called out for neighbors who found her. Patient reports she was unable to get up due to pain in her back and both hips. She reports she did have a fall earlier in the day yesterday as well but EMS was called to help her get up and she denied any particular complaints and so did not seek medical evaluation. Patient denies any recent fevers, chills, cough, congestion, GI symptoms. The patient no longer urinates. Patient reports she has not missed any dialysis sessions. On arrival the patient is no acute distress, afebrile with temperature of 36.7 rectally and vital signs otherwise stable. She appears clinically dry. She has limited range of motion of bilateral hips secondary to pain without overt shortening. Compartments are soft. Tenderness of the lower lumbar region w ithout midline tenderness to palpation or step-offs. Lungs with scant bilateral wheezes at the patient's baseline in the setting of COPD. EKG without overt acute ischemia. CXR negative for acute cardiopulmonary process and otherwise demonstrates emphysema. WBC 12K nonspecific. H/H improved from prior values. Platelets within normal limits. Chemistry without metabolic acidosis. Creatinine 5 in the setting of the patient's known end-stage renal disease on hemodialysis. Electrolytes without significant abnormality. AST marginally above normal at 40, nonspecific. CPK is 800 in the setting of the patient's end-stage renal disease. High-sensitivity troponin 55, nonspecific and improved from prior also in the setting of the patient's end-stage renal disease. COVID-19, RNA, CHRISTOPH test was negative. CT of the head and C-spine negative for acute abnormalities. CT of the chest negative for acute traumatic findings however note is made of suspected osteolytic lesion in the right glenoid with possible pathologic fracture. Medial spinal lymphadenopathy is nonspecific and similar to prior. CT abdomen pelvis demonstrates acute mildly angulated and nondisplaced inferior sacral fracture the level of S4. Otherwise note is made of pathologic lucent lesions of bilateral acetabulum with mild anterior cortical dehiscence/fracturing on the left suspicious for multiple myeloma versus lytic metastases from unknown primary. Findings reviewed with the patient. She reports she has had chronic right shoulder pain for some time and while she is able to range it she feels her range of motion is not as good as her left and has chronic pain in this shoulder. She reports she is unaware of previously been informed of the possibility of malignancy. She agrees with plan for admission for further management. Case was discussed with Bela Murcia PAC with Dr. Simpson, [facility] hospitalist, who will evaluate the patient for admission. Triage Nursing notes reviewed and agree them. Prior/outside medical records reviewed Vital Signs: reviewed Differential diagnosis: Fracture, dislocation, contusion, intra-abdominal, pneumothorax, intrathoracic, intracranial, neurologic, compartment syndrome, rhabdomyolysis, as well as other pathologies. ER treatment provided: See below. Diagnostics interpreted by me: ECG: Normal sinus rhythm, 75 bpm, no ectopy, no overt ST elevation or depression, QTc 498, QRS 102. Cardiac Monitoring: An order for continuous cardiac monitoring was placed and demonstrated Normal sinus rhythm, 75 bpm, no ectopy. Laboratory studies: See below Imaging studies: See below Consultation(s): Bela Murcia PAC with [facility] hospitalist. HPI: The patient is a pleasant 77-year-old woman with a past medical history of ESRD on HD TRS, COPD on home oxygen, atrial fibrillation not on anticoagulation per her report, hypertension, hyperlipidemia who presents emergency department via EMS for evaluation after a fall with prolonged downtime where she reports falling around 6:30 PM last night and was not found until this morning in her enclosed porch when she called out for neighbors who found her. Patient reports she was unable to get up due to pain in her back and both hips. She reports she did have a fall earlier in the day yesterday as well but EMS was called to help her get up and she denied any particular complaints and so did not seek medical evaluation. Patient denies any recent fevers, chills, cough, congestion, GI symptoms. The patient no longer urinates. Patient reports she has not missed any dialysis sessions. ROS: See above HPI for pertinent positives & negatives. A total of 10 systems reviewed and were otherwise negative. VITALS:See Below PHYSICAL EXAMINATION: GENERAL: Awake, alert, uncomfortable-appearing, in no distress HENT: Normocephalic, atraumatic. Oropharynx with dry mucous membranes and otherwise unremarkable. EYES: Normal conjunctiva. Sclera non-icteric. EOMI. No nystamgus. PEARRL. NECK: Supple. No nuchal rigidity. FROM. No JVD. RESPIRATORY: Scant bilateral wheezes at the patient's baseline in the setting of COPD. CARDIAC: Regular rate, normal rhythm. Extremities warm and well perfused. Pulses equal. ABDOMEN: Soft, non-distended. No tenderness to palpation. No rebound or guarding. No masses. RECTAL: Deferred. MUSCULOSKELETAL: Chest examination reveals no tenderness. Pelvis is stable. Limited range of motion of bilateral hips secondary to pain without overt shortening. She has tenderness of the lower lumbar region without midline tenderness to palpation or step-offs. Compartments are soft. LOWER EXTREMITIES: Calves are equal size bilaterally and non-tender. No edema. No discoloration. NEURO: Normal sensorium. No sensory or motor deficits noted. SKIN: No rash or jaundice noted. ED COURSE: Critical Care: I have personally spent greater than 35 minutes of critical care time in the direct management of this patient. This includes bedside care, interpretation of diagnostic studies, and testing, discussion with consultants, patient, and family members, and other required patient management activities. This 35 minutes is in excess of all separately billable procedures. Max Velez MD Past Med/Surg History Medical History Adrenal adenoma Anemia of chronic disease AV fistula LUE Chronic respiratory failure with hypoxia, on home O2 therapy COPD, moderate On 08/19/15 09:47 Mare Whyte wrote "2L O2 at home" Diastolic CHF DM type 2 (diabetes mellitus, type 2) IDDM Dyslipidemia ESRD (end stage renal disease) on dialysis follows with Dr. Reed; Hillary Corley, [facility] (since 02/2013) GI bleed hx H/O cardiovascular stress test "05/2013 - negative for ischemia" History of colon polyps History of GI bleed History of Helicobacter pylori infection HTN (hypertension) Moderate mitral regurgitation "moderate to severe on 12/2015 echo" On 01/13/16 15:17 Blanca Chan wrote "echo 06/2015 - calcified mitral valve, moderate MR" Obesity On home oxygen therapy 3 LPM cont Osteoarthritis Pancreatic cyst Paroxysmal atrial fibrillation Psoriasis Renal cyst Tobacco use Surgical History H/O colonoscopy "2005, hyperplastic polyps repeat in 10 years " H/O nasal polypectomy History of cataract surgery History of intestinal surgery History of surgery AVF creation S/P appendectomy "1971" S/P cholecystectomy "1971" S/P left oophorectomy "1981" S/P ASH (total abdominal hysterectomy) "For Fibroids " Family History Father Myocardial infarction, Onset Age: 64 Mother , 87 Alzheimer disease Other No family history of adverse response to anesthesia Social History Smoking Status: Light tobacco smoker Tobacco Type: Cigarettes Cigarettes Per Day: 3; Second Hand Exposure: No; Do You Dip or Chew Tobacco: No; Hx Alcohol Use: No Hx Substance Use: No Preferred Language: Japanese Communication Ability: Effective 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 Beliefs That Will Affect Care: None marital status: / Current Living Situation: Alone current occupational status: retired Other Information That Helps Us Care for You: No Feels Safe at Home: Yes Safety Concerns: Feels Safe At This Time Assistive Devices: Glasses, Oxygen - Continuous and Walker Allergies Allergies Allergy/AdvReac Type Severity Reaction Status Date / Time No Known Allergies Allergy Verified 05/12/22 10:01 Home Meds Home Medications Medication Instructions Recorded Confirmed ergocalciferol (vitamin D2) 1,250 50,000 unit PO MONTHLY 09/26/18 05/12/22 mcg (50,000 unit) capsule hydralazine 50 mg tablet 100 mg PO BID 09/26/18 05/12/22 ipratropium 0.5 mg-albuterol 3 mg 3 ml inhalation QID PRN Shortness 09/26/18 05/12/22 (2.5 mg base)/3 mL nebulization Of Breath soln vitamin B complex-vitamin C-folic 1 tab PO QAM 09/26/18 05/12/22 acid 0.8 mg tablet (Arabella-Tika) fluticasone propionate 50 2 spray intranasal HS 01/18/19 05/12/22 mcg/actuation nasal spray,suspension sevelamer carbonate 800 mg tablet 2,400 mg PO TIDM 01/18/19 05/12/22 albuterol sulfate 90 mcg/actuation 2 puff inhalation Q4H PRN Wheezing 04/05/19 05/12/22 aerosol inhaler acetaminophen 325 mg tablet 650 mg PO Q6H PRN Pain 04/14/21 05/12/22 (Tylenol) camphor-menthol 0.5 %-0.5 % lotion 1 applic topical DIRECTED PRN 04/14/21 05/12/22 Itching docusate sodium 100 mg capsule 100 mg PO BID PRN Constipation 04/14/21 05/12/22 (Colace) epoetin gabriel 10,000 unit/mL 0 unit IV DIRECTED 04/14/21 05/12/22 injection solution (Procrit) lidocaine-prilocaine 2.5 %-2.5 % 1 applic topical DIRECTED PRN 04/14/21 05/12/22 topical cream PRIOR TO DIALYSIS lisinopril 40 mg tablet 40 mg PO QAM 04/14/21 05/12/22 loperamide 2 mg capsule (Imodium 2 mg PO QID PRN Diarrhea 04/14/21 05/12/22 A-D) valacyclovir 1 gram tablet 1,000 mg PO QAM 04/14/21 05/12/22 fluorometholone 0.1 % eye 1 drp OPL QA 01/25/22 05/12/22 drops,suspension fluticasone 250 mcg-salmeterol 50 1 inh inhalation BID 01/25/22 05/12/22 mcg/dose blistr powdr for inhalation (Advair Diskus) Previous Rx's Medication Instructions Recorded amiodarone 200 mg tablet 200 mg PO DAILY 30 days #60 tabs 05/12/22 Results & Data (ED) Vital Signs Vital Signs - 24 hr 05/12/22 06:07 05/12/22 06:20 05/12/22 06:08 Temperature 37.0 C Temperature Source Oral Pulse Rate 75 65 Pulse Rate from SpO2 Sensor Respiratory Rate 26 H Blood Pressure 135/98 Blood Pressure Mean 110 Pulse Oximetry 71 L 98 Oxygen Delivery Method Room Air Nasal Cannula Oxygen Flow Rate 2 Sepsis Recent Fever Within 48 Hours No Sepsis New/Unexplained Change in Mental Status N/A Sepsis Action Taken by Nursing No Action Required 05/12/22 06:32 05/12/22 07:20 05/12/22 06:11 Temperature 36.7 C Temperature Source Rectal Pulse Rate 74 Pulse Rate from SpO2 Sensor Respiratory Rate 27 H Blood Pressure Blood Pressure Mean Pulse Oximetry 94 Oxygen Delivery Method Nasal Cannula Oxygen Flow Rate 3 Sepsis Recent Fever Within 48 Hours Sepsis New/Unexplained Change in Mental Status Sepsis Action Taken by Nursing 05/12/22 06:15 05/12/22 06:15 05/12/22 06:30 Temperature Temperature Source Pulse Rate 74 64 Pulse Rate from SpO2 Sensor 63 Respiratory Rate 21 19 Blood Pressure 135/98 Blood Pressure Mean 110 Pulse Oximetry 100 Oxygen Delivery Method Oxygen Flow Rate Sepsis Recent Fever Within 48 Hours Sepsis New/Unexplained Change in Mental Status Sepsis Action Taken by Nursing 05/12/22 07:00 05/12/22 07:01 05/12/22 07:01 Temperature Temperature Source Pulse Rate 104 H Pulse Rate from SpO2 Sensor 65 68 Respiratory Rate 19 Blood Pressure 154/69 H Blood Pressure Mean 97 Pulse Oximetry 96 95 Oxygen Delivery Method Oxygen Flow Rate Sepsis Recent Fever Within 48 Hours Sepsis New/Unexplained Change in Mental Status Sepsis Action Taken by Nursing 05/12/22 07:30 05/12/22 07:30 05/12/22 08:04 Temperature Temperature Source Pulse Rate Pulse Rate from SpO2 Sensor 60 Respiratory Rate Blood Pressure 159/59 H Blood Pressure Mean 92 Pulse Oximetry 99 100 Oxygen Delivery Method Oxygen Flow Rate Sepsis Recent Fever Within 48 Hours Sepsis New/Unexplained Change in Mental Status Sepsis Action Taken by Nursing 05/12/22 08:21 05/12/22 08:21 05/12/22 08:30 Temperature Temperature Source Pulse Rate 59 L Pulse Rate from SpO2 Sensor 59 L Respiratory Rate 24 Blood Pressure 130/50 L 130/56 L Blood Pressure Mean 76 80 Pulse Oximetry 100 Oxygen Delivery Method Oxygen Flow Rate Sepsis Recent Fever Within 48 Hours Sepsis New/Unexplained Change in Mental Status Sepsis Action Taken by Nursing 05/12/22 08:30 05/12/22 09:00 05/12/22 09:00 Temperature Temperature Source Pulse Rate 57 L 57 L Pulse Rate from SpO2 Sensor 57 L Respiratory Rate 13 15 Blood Pressure 131/46 L Blood Pressure Mean 74 Pulse Oximetry 100 100 Oxygen Delivery Method Oxygen Flow Rate Sepsis Recent Fever Within 48 Hours Sepsis New/Unexplained Change in Mental Status Sepsis Action Taken by Nursing 05/12/22 09:30 05/12/22 09:30 Temperature Temperature Source Pulse Rate 57 L Pulse Rate from SpO2 Sensor 58 L Respiratory Rate 15 Blood Pressure 140/55 L Blood Pressure Mean 83 Pulse Oximetry 100 Oxygen Delivery Method Oxygen Flow Rate Sepsis Recent Fever Within 48 Hours Sepsis New/Unexplained Change in Mental Status Sepsis Action Taken by Nursing Laboratory Data Attestation: I reviewed the patient's lab results. 05/12/22 06:23 05/12/22 06:23 Lab Results 05/12/22 05/12/22 05/12/22 Range/Units 06:23 06:23 06:23 WBC 12.06 H (4.8-10.8) K/ul RBC 3.00 L (4.20-5.40) M/uL Hgb 11.9 L (12.0-16.0) g/dl Hct 34.6 L (37.0-47.0) % MCV 115.3 H (80.0-100.0) fL MCH 39.7 H (25.0-34.0) pg MCHC 34.4 (32.0-36.0) g/dL RDW Std Deviation 57.6 H (36.4-46.3) fL RDW Coeff of Fior 13.6 (11.5-14.5) % Plt Count 197 (130-400) K/uL MPV 10.9 (9.4-12.4) fL Immature Gran % (Auto) 0.6 % Neut % (Auto) 87.7 % Lymph % (Auto) 3.9 % [place] % (Auto) 7.3 % Eos % (Auto) 0.1 % Baso % (Auto) 0.4 % Neut # (Auto) 10.58 H (1.40-6.50) K/uL Lymph # (Auto) 0.47 L (1.2-3.4) K/uL [place] # (Auto) 0.88 H (0.11-0.59) K/uL Eos # (Auto) 0.01 (0-0.50) K/uL Baso # (Auto) 0.05 (0-0.2) K/uL Immature Gran # (Auto) 0.07 (0.01-0.20) K/uL Rouleaux 1+ Peripher Smr Path Cons PT 10.8 (9.0-12.0) Seconds INR 1.0 (0.9-1.1) APTT 27.4 (21.0-31.0) Seconds PTT Ratio 1.0 Sodium 138 (136-145) mmol/L Potassium 4.4 (3.5-5.1) mmol/L Chloride 99 (98-107) mmol/L Carbon Dioxide 29 (21-32) mmol/L Anion Gap 10 (3-11) BUN 25 H (6-23) mg/dl Creatinine 5.19 H* (0.6-1.2) mg/dl Est Cr Clr Drug Dosing 10.0 ml/min Est GFR ( Amer) 8.7 ml/min Est GFR (Non-Af Amer) 7.5 ml/min BUN/Creatinine Ratio 4.8 L (10-20) Glucose 126 H (70-99(Fasting)) mg/dl Calcium 9.3 (8.5-10.1) mg/dl Magnesium 1.9 (1.7-2.4) mg/dl Total Bilirubin 0.7 (0.2-1.0) mg/dl AST 40 H (13-39) U/L ALT 23 (7-52) U/L Alkaline Phosphatase 85 (34-104) U/L Total Creatine Kinase 809 H (26-192) U/L Troponin I High Sens 55.7 H* (0-14) pg/ml Total Protein 6.8 (6.0-8.3) gm/dl Albumin 4.1 (3.4-5.0) gm/dl Globulin 2.7 (2.5-4.0) gm/dl Albumin/Globulin Ratio 1.5 (0.9-2) TSH (0.300-4.500) uIu/ml 05/12/22 05/12/22 Range/Units 06:23 06:23 WBC (4.8-10.8) K/ul RBC (4.20-5.40) M/uL Hgb (12.0-16.0) g/dl Hct (37.0-47.0) % MCV (80.0-100.0) fL MCH (25.0-34.0) pg MCHC (32.0-36.0) g/dL RDW Std Deviation (36.4-46.3) fL RDW Coeff of Fior (11.5-14.5) % Plt Count (130-400) K/uL MPV (9.4-12.4) fL Immature Gran % (Auto) % Neut % (Auto) % Lymph % (Auto) % [place] % (Auto) % Eos % (Auto) % Baso % (Auto) % Neut # (Auto) (1.40-6.50) K/uL Lymph # (Auto) (1.2-3.4) K/uL [place] # (Auto) (0.11-0.59) K/uL Eos # (Auto) (0-0.50) K/uL Baso # (Auto) (0-0.2) K/uL Immature Gran # (Auto) (0.01-0.20) K/uL Rouleaux Peripher Smr Path Cons Cancelled PT (9.0-12.0) Seconds INR (0.9-1.1) APTT (21.0-31.0) Seconds PTT Ratio Sodium (136-145) mmol/L Potassium (3.5-5.1) mmol/L Chloride (98-107) mmol/L Carbon Dioxide (21-32) mmol/L Anion Gap (3-11) BUN (6-23) mg/dl Creatinine (0.6-1.2) mg/dl Est Cr Clr Drug Dosing ml/min Est GFR ( Amer) ml/min Est GFR (Non-Af Amer) ml/min BUN/Creatinine Ratio (10-20) Glucose (70-99(Fasting)) mg/dl Calcium (8.5-10.1) mg/dl Magnesium (1.7-2.4) mg/dl Total Bilirubin (0.2-1.0) mg/dl AST (13-39) U/L ALT (7-52) U/L Alkaline Phosphatase (34-104) U/L Total Creatine Kinase (26-192) U/L Troponin I High Sens (0-14) pg/ml Total Protein (6.0-8.3) gm/dl Albumin (3.4-5.0) gm/dl Globulin (2.5-4.0) gm/dl Albumin/Globulin Ratio (0.9-2) TSH 3.057 (0.300-4.500) uIu/ml Administered Medications Heparin Sodium (Porcine) (Heparin Sod 5,000 Unit/0.5 Ml Vial) 5,000 units SQ Q8 MARY Stop: 06/11/22 13:59 Last Admin: 05/12/22 13:50 Dose: 5,000 units Documented By: HAL Senna/Docusate Sodium (Docusate Sodium/Senna 50/8.6mg Tab) 1 tab PO BID MARY Stop: 06/11/22 12:29 Last Admin: 05/12/22 13:49 Dose: 1 tab Documented By: HAL Sevelamer HCl (Sevelamer Hcl 800 Mg Tablet) 2,400 mg PO TIDM MARY Stop: 06/11/22 11:59 Last Admin: 05/12/22 13:49 Dose: 2,400 mg Documented By: HAL Discontinued Medications Acetaminophen (Ofirmev) 1,000 mg in 100 mls @ 400 mls/hr IV NOW STA Stop: 05/12/22 06:59 Last Infusion: 05/12/22 07:31 Dose: 0 mls/hr Documented By: Admin: 05/12/22 07:09 Dose: 400 mls/hr Documented By: BREANN Morphine Sulfate (Morphine Sulfate 4 Mg/Ml 1 Ml Carp\\Vial) 2 mg IV Q2H PRN PRN Reason: Severe Pain (Rating 7,8,9,10) Stop: 05/26/22 06:40 Last Admin: 05/12/22 11:23 Dose: 2 mg Documented By: Admin: 05/12/22 07:28 Dose: 2 mg Documented By: BREANN Imaging Data Radiologist's Impression: Chest X-Ray 05/12/22 06:41 SINGLE VIEW CHEST CLINICAL HISTORY: Trauma. FINDINGS: 2 AP, portable, upright chest radiographs are compared to study dated 03/13/2022 and correlated with chest CT dated 04/29/2021. The examination is degraded by portable technique, apical lordotic positioning, and patient rotation. The heart is enlarged without atherosclerotic calcification of the thoracic aorta. The pulmonary vasculature is noncongested. Emphysema and chronic interstitial thickening is similar to previous. Scarring/atelectasis is noted at the lung bases. The lungs and pleural spaces are otherwise clear. No pneumothorax is seen. The skeletal structures are osteopenic. The bony thorax is grossly intact. Calcific tendinopathy suggested in the right shoulder. IMPRESSION: Cardiomegaly and emphysema with no acute cardiopulmonary abnormality identified. ACT 112: Negative or not required by law. Electronically signed by: Luigi García M.D. 05/12/2022 7:09 AM Pelvis X-Ray 05/12/22 06:41 XR pelvis 1-2V routine HISTORY: 77 years-old Female fall pain, trauma acute pelvic pain status post fall COMPARISON: CT abdomen and pelvis of same day and also 09/26/2018 TECHNIQUE: AP view of the pelvis FINDINGS: Moderate to extensive colonic fecal retention. Embolization coils of the mid upper abdomen. Diffusely heterogeneous appearance of the bone marrow. Mild osteo arthritis of the hips. No acute fracture, dislocation or avascular necrosis identified. Mild degeneration of the SI joints. Ill-defined lucent foci of the acetabula. IMPRESSION: 1. Limited exam secondary to obscuring bowel. 2. No acute fracture or dislocation identified. 3. Ill-defined lucent lesions of the bilateral acetabula. Please refer to the CT abdomen and pelvis study of same day for additional details. ACT 112: Negative or not required by law. The above report was generated using voice recognition software. It may contain grammatical, syntax or spelling errors. Electronically signed by: Elder Osborn M.D. 05/12/2022 8:24 AM Abdomen/Pelvis CT 05/12/22 06:[address] WITHOUT CONTRAST HISTORY: Acute generalized abdominal pain status post trauma Trauma TECHNIQUE: Multiaxial CT images of the abdomen and pelvis were performed without contrast. A dose lowering technique was utilized adhering to the principles of ALARA. COMPARISON STUDY: Chest CT of same day, CT abdomen and pelvis 09/26/2018 FINDINGS: Cardiac megaly with trace pericardial effusion. Trace right and small left pleural effusions. Mild subsegmental bibasilar densities suggestive of atelectasis. No pneumatosis or pneumoperitoneum. Hypodense foci of the spleen are again noted measuring up to 3.3 cm, stable from prior. Stable right adrenal gland adenoma, 1.5 cm with unchanged soft tissue attenuating 2.3 cm left adrenal gland lesion, also likely benign. 2.2 cm cystic lesion of the pancreas tail with subcentimeter calcification, previously measuring less than 2 cm. Embolization coils are noted within the region of the gastroduodenal artery. Moderately atrophic pancreas. Nonspecific mildly hyperdense attenuation of the liver. No evidence of cirrhosis or hepatic mass. Atrophic kidneys with diffuse cortical thinning. Bilateral renal cysts. Stable indeterminate 2 cm lesion of the interpolar right kidney. Bilateral renal vascular calcifications. There is no hydronephrosis. Partial distention of the urinary bladder. Hysterectomy. Atherosclerosis of the aorta and branch vessels without aneurysm. No lymphadenopathy identified. Moderate colonic fecal retention. No bowel obstruction or bowel wall thickening. Nonvisualization of the appendix. Trace free sternal stranding. There is an acute mildly angulated nondisplaced fracture involving the lower sacrum, predominantly at S4. No additional acute fracture or dislocation identified. No acute pelvic ring fracture. Transitional lumbosacral anatomy. 2.7 cm lucent focus of the posterior right acetabulum, image 385 in retrospect has increased in size from the 2019 study, possibly degenerative. There is a new pathologic lucent focus measuring 2.9 cm involving the anterior left acetabulum with anterior cortical breakthrough. Additional pathologic lucent lesion of the anterior right acetabulum measuring 2.1 cm is new from prior without pathologic fracture. IMPRESSION: 1. Acute mildly angulated and nondisplaced inferior sacral fracture. 2. Pathologic lucent lesions of the bilateral acetabula with mild anterior cortical dehiscence/fracturing on the left. Differential considerations would include multiple myeloma versus lytic metastasis from unknown primary. Oncologic consultation is needed. 3. No acute posttraumatic intra-abdominal or intrapelvic abnormality. 4. Cardiomegaly with trace right and small left pleural effusions. 5. Additional findings as above. ACT 112: Negative or not required by law. The above report was generated using voice recognition software. It may contain grammatical, syntax or spelling errors. Electronically signed by: Elder Osborn M.D. 05/12/2022 8:[address] 05/12/22 06:42 CT cervical spine wo con CT DOSE: 2407.95 mGy.cm CLINICAL HISTORY: 77 years-old Female with Trauma. Acute neck trauma status post fall COMPARISON: Head CT of same day TECHNIQUE: Multiple axial CT images of the cervical spine were obtained without contrast. A dose lowering technique was utilized adhering to the principles of ALARA. FINDINGS: Demineralized appearance of the bones. Multilevel intervertebral disc space narrowing, moderate at C5-C6 with mild to moderate multilevel facet arthr osis. Small posterior disc osteophyte complex at T2-T3. Severe upper thoracic facet arthrosis. Multilevel neural foraminal narrowing. No acute fracture or subluxation identified. 2.1 cm right-sided thyroid nodule. Punctate calcifications of the parotid glands. No prevertebral edema. The visualized lung apices appear clear. IMPRESSION: No acute cervical spine fracture or subluxation identified. ACT 112: Negative or not required by law. The above report was generated using voice recognition software. It may contain grammatical, syntax or spelling errors. Electronically signed by: Elder Osborn M.D. 05/12/2022 8:23 AM Chest CT 05/12/22 06:42 CT SCAN OF THE CHEST WITHOUT IV CONTRAST CLINICAL HISTORY: Trauma. COMPARISON STUDY: Chest x-ray dated 05/12/2022. Prior chest CT scans, most recently dated 04/29/2021. TECHNIQUE: CT scan of the thorax was performed from the thoracic inlet to the upper abdomen. Images are reviewed in the axial, sagittal, and coronal planes. IV contrast was not administered for this examination as per the referring clinician. Note that the examination was performed in suboptimal fashion without IV contrast. A dose lowering technique was utilized adhering to the principles of ALARA. The examination is degraded by motion artifact, as well as by streak artifact from the arms which could not be elevated above the chest. FINDINGS: Thyroid: The thyroid gland is enlarged and heterogeneous. A right lobe nodule measures up to 2.5 cm. Thoracic aorta: There is atherosclerotic calcification of the thoracic aorta, which is normal in caliber and demonstrates standard 3-vessel arch anatomy. Heart: The heart is enlarged noting a small pericardial effusion. The coronary arteries are densely calcified. Lungs and pleural spaces: Evaluation of the lung parenchyma is compromised by motion artifact. Emphysematous change is similar to previous. Secretions are noted in the trachea. There are small pleural effusions, left larger than right with dependent atelectasis. No pneumothorax is seen. There is no airspace consolidation typical for pneumonia. Scattered pulmonary nodules are likely unchanged from previous. A traveling representative 3 mm nodule in the right middle lobe as seen on image #197, and a 3 mm right upper lobe nodule seen on image #111. Mediastinum: Mediastinal lymphadenopathy similar to previous. A precarinal node measures up to 16 mm in short axis. Madina: Not well assessed without IV contrast. Axillae: There is no axillary lymphadenopathy. Upper abdomen: A 3 cm cyst in the spleen is similar to previous. The liver appears diffusely hyperdense which could be seen with amiodarone therapy or iron overload. Bilateral adrenal nodules are partially visualized and similar to previous. Skeletal structures: The skeletal structures are osteopenic. There is an osteolytic lesion in the right glenoid with probable pathologic fracture. No add itional foci of osteolytic bone disease are identified in the thorax. The remainder of the bony thorax appears intact. IMPRESSION: 1. There is no acute posttraumatic intrathoracic abnormality. 2. Cardiomegaly and emphysema. 3. An osteolytic lesion is seen within the right glenoid with possible pathologic fracture. This could represent metastatic disease versus myeloma. Correlate for any oncological history. 4. The remainder the bony thorax appears intact. No additional osteolytic bony lesions are identified in the thorax. 5. Small pleural effusions, left larger than right. 6. Mediastinal lymphadenopathy is nonspecific and similar to previous. 7. There is a 2.5 cm right lobe thyroid nodule. Consider nonemergent thyroid ultrasound in follow-up. 8. Additional findings as above. ACT 112: Negative or not required by law. Electronically signed by: Luigi García M.D. 05/12/2022 8:[address] 05/12/22 06:42 CT SCAN OF THE BRAIN WITHOUT IV CONTRAST CLINICAL HISTORY: Trauma. COMPARISON STUDY: No priors. TECHNIQUE: Unenhanced axial CT scan of the brain is performed from the vertex to the skull base. A dose lowering technique was utilized adhering to the principles of ALARA. FINDINGS: Brain parenchyma: There is age-related involutional change noting mild subcortical and periventricular microangiopathic disease. There is no hemorrhage, mass effect, or evidence of acute territorial ischemia by CT criteria. Yoo-white matter differentiation is preserved. No extra-axial fluid collection is seen. Ventricles, sulci, cisterns: Prominent secondary to involutional change. Intracranial vasculature: There is atherosclerotic calcification of the cavernous carotid and vertebral artery. Calvarium: The skeletal structures are osteopenic. No depressed calvarial frac ture is seen. Soft tissues: There is a tiny posterior scalp contusion. Sialoliths are noted in both parotid glands. Sinuses and mastoids: There is mild mucosal thickening in both maxillary antra. The remaining paranasal sinuses are clear. The mastoid air cells are well pneumatized. Orbits: The bony orbits are grossly intact. There are bilateral ocular lens implants. IMPRESSION: There is no hemorrhage, mass effect, or evidence of acute territorial ischemia by CT criteria. ACT 112: Negative or not required by law. Electronically signed by: Luigi García M.D. 05/12/2022 8:10 AM Discharge Plan Visit Data Chief Complaint: Fall Stated Complaint: fall/hypothermic ED Provider: Max Velez Discharge Problem: Rhabdomyolysis, Closed sacral fracture, Fall from standing, Lytic bone lesion of hip, Acetabular fracture, Glenoid fracture of shoulder, ESRD on hemodialysis Patient Disposition: Admitted As Inpatient Discharge Instructions Interventions: ED Discharge Assessment Last Done: 05/12/22 11:20
--- NOTE | 2022-05-12 08:12 | CT Scan Report ---
CT SCAN OF THE BRAIN WITHOUT IV CONTRAST CLINICAL HISTORY: Trauma. COMPARISON STUDY: No priors. TECHNIQUE: Unenhanced axial CT scan of the brain is performed from the vertex to the skull base. A do se lowering technique was utilized adhering to the principles of ALARA. FINDINGS: Brain parenchyma: There is age-related involutional change noting mild subcortical and periventricula r microangiopathic disease. There is no hemorrhage, mass effect, or evidence of acute territorial isc hemia by CT criteria. Yoo-white matter differentiation is preserved. No extra-axial fluid collection is seen. Ventricles, sulci, cisterns: Prominent secondary to involutional change. Intracranial vasculature: There is atherosclerotic calcification of the cavernous carotid and vertebr al artery. Calvarium: The skeletal structures are osteopenic. No depressed calvarial fracture is seen. Soft tissues: There is a tiny posterior scalp contusion. Sialoliths are noted in both parotid glands. Sinuses and mastoids: There is mild mucosal thickening in both maxillary antra. The remaining paranas al sinuses are clear. The mastoid air cells are well pneumatized. Orbits: The bony orbits are grossly intact. There are bilateral ocular lens implants. IMPRESSION: There is no hemorrhage, mass effect, or evidence of acute territorial ischemia by CT yanira villalobos. ACT 112: Negative or not required by law. Electronically signed by: Luigi García M.D. 05/12/2022 8:10 AM
[2022-05-12 08:23] LABS: Albumin Globulin Ratio 1.5 (0.9-2); BUN Creatinine Ratio 4.8 (10-20); Est GFR (African American) 8.7 ml/min; Est GFR (Non-African American) 7.5 ml/min; Globulin 2.7 gm/dl (2.5-4.0); Total Protein 6.8 gm/dl (6.0-8.3); Troponin I High Sensitivity 55.7 pg/ml (0-14)
--- NOTE | 2022-05-12 08:26 | CT Scan Report ---
CT cervical spine wo con CT DOSE: 2407.95 mGy.cm CLINICAL HISTORY: 77 years-old Female with Trauma. Acute neck trauma status post fall COMPARISON: Head CT of same day TECHNIQUE: Multiple axial CT images of the cervical spine were obtained without contrast. A dose low ering technique was utilized adhering to the principles of ALARA. FINDINGS: Demineralized appearance of the bones. Multilevel intervertebral disc space narrowing, mode rate at C5-C6 with mild to moderate multilevel facet arthrosis. Small posterior disc osteophyte compl ex at T2-T3. Severe upper thoracic facet arthrosis. Multilevel neural foraminal narrowing. No acute f racture or subluxation identified. 2.1 cm right-sided thyroid nodule. Punctate calcifications of the parotid glands. No prevertebral maría elena ma. The visualized lung apices appear clear. IMPRESSION: No acute cervical spine fracture or subluxation identified. ACT 112: Negative or not required by law. The above report was generated using voice recognition software. It may contain grammatical, syntax o r spelling errors. Electronically signed by: Elder Osborn M.D. 05/12/2022 8:23 AM
--- NOTE | 2022-05-12 08:26 | XRay Report ---
XR pelvis 1-2V routine HISTORY: 77 years-old Female fall pain, trauma acute pelvic pain status post fall COMPARISON: CT abdomen and pelvis of same day and also 09/26/2018 TECHNIQUE: AP view of the pelvis FINDINGS: Moderate to extensive colonic fecal retention. Embolization coils of the mid upper abdomen. Diffusely heterogeneous appearance of the bone marrow. Mild osteoarthritis of the hips. No acute fracture, dis location or avascular necrosis identified. Mild degeneration of the SI joints. Ill-defined lucent foc i of the acetabula. IMPRESSION: 1. Limited exam secondary to obscuring bowel. 2. No acute fracture or dislocation identified. 3. Ill-defined lucent lesions of the bilateral acetabula. Please refer to the CT abdomen and pelvis s tudy of same day for additional details. ACT 112: Negative or not required by law. The above report was generated using voice recognition software. It may contain grammatical, syntax o r spelling errors. Electronically signed by: Elder Osborn M.D. 05/12/2022 8:24 AM
--- NOTE | 2022-05-12 08:29 | CT Scan Report ---
CT SCAN OF THE CHEST WITHOUT IV CONTRAST CLINICAL HISTORY: Trauma. COMPARISON STUDY: Chest x-ray dated 05/12/2022. Prior chest CT scans, most recently dated 04/29/2021. TECHNIQUE: CT scan of the thorax was performed from the thoracic inlet to the upper abdomen. Images are reviewed in the axial, sagittal, and coronal planes. IV contrast was not administered for this ex amination as per the referring clinician. Note that the examination was performed in suboptimal fashi on without IV contrast. A dose lowering technique was utilized adhering to the principles of ALARA. The examination is degraded by motion artifact, as well as by streak artifact from the arms which cou ld not be elevated above the chest. FINDINGS: Thyroid: The thyroid gland is enlarged and heterogeneous. A right lobe nodule measures up to 2.5 cm. Thoracic aorta: There is atherosclerotic calcification of the thoracic aorta, which is normal in carly molly and demonstrates standard 3-vessel arch anatomy. Heart: The heart is enlarged noting a small pericardial effusion. The coronary arteries are densely c alcified. Lungs and pleural spaces: Evaluation of the lung parenchyma is compromised by motion artifact. Emphys ematous change is similar to previous. Secretions are noted in the trachea. There are small pleural e ffusions, left larger than right with dependent atelectasis. No pneumothorax is seen. There is no air space consolidation typical for pneumonia. Scattered pulmonary nodules are likely unchanged from prev ious. A rental sales representative 3 mm nodule in the right middle lobe as seen on image #197, and a 3 mm right u pper lobe nodule seen on image #111. Mediastinum: Mediastinal lymphadenopathy similar to previous. A precarinal node measures up to 16 mm in short axis. Madina: Not well assessed without IV contrast. Axillae: There is no axillary lymphadenopathy. Upper abdomen: A 3 cm cyst in the spleen is similar to previous. The liver appears diffusely hyperden se which could be seen with amiodarone therapy or iron overload. Bilateral adrenal nodules are partia lly visualized and similar to previous. Skeletal structures: The skeletal structures are osteopenic. There is an osteolytic lesion in the rig ht glenoid with probable pathologic fracture. No additional foci of osteolytic bone disease are ident ified in the thorax. The remainder of the bony thorax appears intact. IMPRESSION: 1. There is no acute posttraumatic intrathoracic abnormality. 2. Cardiomegaly and emphysema. 3. An osteolytic lesion is seen within the right glenoid with possible pathologic fracture. This coul d represent metastatic disease versus myeloma. Correlate for any oncological history. 4. The remainder the bony thorax appears intact. No additional osteolytic bony lesions are identified in the thorax. 5. Small pleural effusions, left larger than right. 6. Mediastinal lymphadenopathy is nonspecific and similar to previous. 7. There is a 2.5 cm right lobe thyroid nodule. Consider nonemergent thyroid ultrasound in follow-up. 8. Additional findings as above. ACT 112: Negative or not required by law. Electronically signed by: Luigi García M.D. 05/12/2022 8:27 AM
--- NOTE | 2022-05-12 08:36 | CT Scan Report ---
ABDOMEN AND PELVIS CT WITHOUT CONTRAST HISTORY: Acute generalized abdominal pain status post trauma Trauma TECHNIQUE: Multiaxial CT images of the abdomen and pelvis were performed without contrast. A dose lo wering technique was utilized adhering to the principles of ALARA. COMPARISON STUDY: Chest CT of same day, CT abdomen and pelvis 09/26/2018 FINDINGS: Cardiac megaly with trace pericardial effusion. Trace right and small left pleural effusion s. Mild subsegmental bibasilar densities suggestive of atelectasis. No pneumatosis or pneumoperitoneu m. Hypodense foci of the spleen are again noted measuring up to 3.3 cm, stable from prior. Stable right adrenal gland adenoma, 1.5 cm with unchanged soft tissue attenuating 2.3 cm left adrenal gland lesion , also likely benign. 2.2 cm cystic lesion of the pancreas tail with subcentimeter calcification, pre viously measuring less than 2 cm. Embolization coils are noted within the region of the gastroduodena l artery. Moderately atrophic pancreas. Nonspecific mildly hyperdense attenuation of the liver. No ev idence of cirrhosis or hepatic mass. Atrophic kidneys with diffuse cortical thinning. Bilateral renal cysts. Stable indeterminate 2 cm les ion of the interpolar right kidney. Bilateral renal vascular calcifications. There is no hydronephros is. Partial distention of the urinary bladder. Hysterectomy. Atherosclerosis of the aorta and branch vessels without aneurysm. No lymphadenopathy identified. Moderate colonic fecal retention. No bowel obstruction or bowel wall thickening. Nonvisualization of the appendix. Trace free sternal stranding. There is an acute mildly angulated nondisplaced fracture involving the lower sacrum, predominantly at S4. No additional acute fracture or dislocation identifi ed. No acute pelvic ring fracture. Transitional lumbosacral anatomy. 2.7 cm lucent focus of the poste rior right acetabulum, image 385 in retrospect has increased in size from the 2019 study, possibly de generative. There is a new pathologic lucent focus measuring 2.9 cm involving the anterior left aceta bulum with anterior cortical breakthrough. Additional pathologic lucent lesion of the anterior right acetabulum measuring 2.1 cm is new from prior without pathologic fracture. IMPRESSION: 1. Acute mildly angulated and nondisplaced inferior sacral fracture. 2. Pathologic lucent lesions of the bilateral acetabula with mild anterior cortical dehiscence/fractu ring on the left. Differential considerations would include multiple myeloma versus lytic metastasis from unknown primary. Oncologic consultation is needed. 3. No acute posttraumatic intra-abdominal or intrapelvic abnormality. 4. Cardiomegaly with trace right and small left pleural effusions. 5. Additional findings as above. ACT 112: Negative or not required by law. The above report was generated using voice recognition software. It may contain grammatical, syntax o r spelling errors. Electronically signed by: Elder Osborn M.D. 05/12/2022 8:34 AM
--- NOTE | 2022-05-12 10:38 | History & Physical Report ---
Date of Service May 12, 2022 Assessment & Plan (1) Fall: (2) Rhabdomyolysis: (3) Acetabular fracture: (4) Lytic bone lesions on xray: (5) Glenoid fracture of shoulder: (6) Closed sacral fracture: (7) Chronic respiratory failure with hypoxia: (8) COPD, moderate: (9) ESRD (end stage renal disease) on dialysis: (10) Diastolic CHF: Plan This is a 77-year-old female who has significant past medical history of end- stage renal disease on hemodialysis Tuesday//Tuesday, history of T2DM now diet-controlled, COPD with chronic hypoxic respiratory failure on 3 L of chronic oxygen, PAF on amiodarone therapy off oral anticoagulation, chronic HFpEF, HTN, anemia of renal disease, tobacco abuse, secondary hyperparathyroidism, history of GI bleed secondary to duodenal ulcer who presents to ED after sustaining a fall and laying on ground for approximately 12 hours prior to arrival. Fall Traumatic Rhabdomyolysis Acute mildly angulated nondisplaced inferior S4 fracture Pathologic lucent lesions of bilateral acetabulum with possible fracturing on the left Possible right glenoid fracture with evidence of osteolytic lesion Elevated troponin Admit to telemetry Bedrest until seen by orthopedics Consult orthopedics Patient with mild elevation in CK, 809 and AST 40 Trend CK and LFTs Will not give IV fluid in setting of end-stage renal disease, discussed with nephrology Cycle troponin, likely in setting of fall, rhabdo and end-stage renal disease, no chest pain or EKG changes Echo 03/13/2022 revealed EF 65 to 70%, LA moderately dilated and severe mitral regurg Obtain serum electrophoresis, peripheral smear for myeloma work-up; unable to do UPEP patient is anuric tramadol prn for pain, tylenol as needed Moderate fecal retention add senna s bid, hold for loose stool ESRD on HD // consult Nephro discussed with Dr. Reed continue renal ofelia, sevelamer daily labs, renal fxn, lfts, mag, phos Thyroid nodule Noted incidentally on chest CT, 2.5 cm right lobe nodule Recommend nonemergent thyroid ultrasound as outpatient Chronic hypoxic resp failure 2/2 COPD some day tobacco user continue advair, prn nebs no acute exac encourage smoking cessation Hx of T2DM currently off tx last a1c was 5.1 will obtain a1c in am. PAF not on OAC 2/2 hx of GIB continue amiodarone Chronic HFpEF HTN Daily weights, strict I's and O's Continue hydralazine and lisinopril History of herpes simplex iridocyclitis continue eye gtts, daily valtex Anemia of renal disease h/h stable monitor DVT ppx: SQ Heparin for now Dispo Tele PCP: Dr. Hahn FULL CODE PT was seen and examined in collaboration with Dr. Simpson Offered to call pts daughter to update her but patient wished to update herself. A total of 95 minutes were spent with greater than 50% of that time face to face with the patient, personally reviewing all current laboratories, imaging studies, past medication reconciliation, outpatient chart review, and discussion with specialists to collaborate care for the patient with attending. Please see attending documentation for corrections and/or additions. History of Present Illness Chief Complaint: Fell and laid on ground for ~12hrs [employer]. Primary Care Provider: Noam Armando MD This is a 77-year-old female who has significant past medical history of end- stage renal disease on hemodialysis Tuesday//Tuesday, history of T2DM now diet-controlled, COPD with chronic hypoxic respiratory failure on 3 L of chronic oxygen, PAF on amiodarone therapy off oral anticoagulation, chronic HFpEF, HTN, anemia of renal disease, tobacco abuse, secondary hyperparathyroidism, history of GI bleed secondary to duodenal ulcer who presents to ED after sustaining a fall and laying on ground for approximately 12 hours prior to arrival. Patient currently lives alone and typically ambulates with a walker. She had a fall about 2 days ago where she struck the back of her head. Last evening she was walking onto her enclosed porch when her legs just gave out and she fell on the ground. She had bilateral groin and sacral pain and therefore was unable to get up. She laid on the ground for approximately 12 hours yelling for help. This morning around 5 AM her neighbor heard her and EMS was summoned. She was not hypothermic although she was hypoxic on EMS arrival. She complained of being nauseated overnight. She has chronic shortness of breath on oxygen but feels this is baseline. She also has a chronic clear productive cough. She denies any fever, chills, sweats, lightheadedness, dizziness, chest pain, vomiting, hematochezia, abdominal pain, diarrhea or melena. She is anuric in setting of hemodialysis. She last had hemodialysis yesterday and tolerated treatment well. Allergies Allergy/AdvReac Type Severity Reaction Status Date / Time No Known Allergies Allergy Verified 05/12/22 10:01 Home Medications Medication Instructions Recorded Confirmed Type ergocalciferol (vitamin D2) 1,250 50,000 unit PO MONTHLY 09/26/18 05/12/22 History mcg (50,000 unit) capsule hydralazine 50 mg tablet 100 mg PO BID 09/26/18 05/12/22 History ipratropium 0.5 mg-albuterol 3 mg 3 ml inhalation QID PRN Shortness 09/26/18 05/12/22 History (2.5 mg base)/3 mL nebulization Of Breath soln vitamin B complex-vitamin C-folic 1 tab PO QAM 09/26/18 05/12/22 History acid 0.8 mg tablet (Arabella-Ofelia) fluticasone propionate 50 2 spray intranasal HS 01/18/19 05/12/22 History mcg/actuation nasal spray,suspension sevelamer carbonate 800 mg tablet 2,400 mg PO TIDM 01/18/19 05/12/22 History albuterol sulfate 90 mcg/actuation 2 puff inhalation Q4H PRN Wheezing 04/05/19 05/12/22 History aerosol inhaler acetaminophen 325 mg tablet 650 mg PO Q6H PRN Pain 04/14/21 05/12/22 History (Tylenol) camphor-menthol 0.5 %-0.5 % lotion 1 applic topical DIRECTED PRN 04/14/21 05/12/22 History Itching docusate sodium 100 mg capsule 100 mg PO BID PRN Constipation 04/14/21 05/12/22 History (Colace) epoetin gabriel 10,000 unit/mL 0 unit IV DIRECTED 04/14/21 05/12/22 History injection solution (Procrit) lidocaine-prilocaine 2.5 %-2.5 % 1 applic topical DIRECTED PRN 04/14/21 05/12/22 History topical cream PRIOR TO DIALYSIS lisinopril 40 mg tablet 40 mg PO QAM 04/14/21 05/12/22 History loperamide 2 mg capsule (Imodium 2 mg PO QID PRN Diarrhea 01/18/22 02/15/23 History A-D) valacyclovir 1 gram tablet 1,000 mg PO QAM 04/14/21 05/12/22 History fluorometholone 0.1 % eye 1 drp OPL QAM 01/25/22 05/12/22 History drops,suspension fluticasone 250 mcg-salmeterol 50 1 inh inhalation BID 01/25/22 05/12/22 History mcg/dose blistr powdr for inhalation (Advair Diskus) amiodarone 200 mg tablet 200 mg PO DAILY 30 days #60 tabs 05/12/22 05/12/22 Rx Past Med/Surg History Medical History Adrenal adenoma Anemia of chronic disease AV fistula LUE Chronic respiratory failure with hypoxia, on home O2 therapy COPD, moderate On 08/19/15 09:47 Mare Whyte wrote "2L O2 at home" Diastolic CHF DM type 2 (diabetes mellitus, type 2) IDDM Dyslipidemia ESRD (end stage renal disease) on dialysis follows with Dr. Reed; Hillary Corley, Sat - [facility] (since 02/2013) GI bleed hx H/O cardiovascular stress test "05/2013 - negative for ischemia" History of colon polyps History of GI bleed History of Helicobacter pylori infection HTN (hypertension) Moderate mitral regurgitation "moderate to severe on 12/2015 echo" On 01/13/16 15:17 Blanca Chan wrote "echo 06/2015 - calcified mitral valve, moderate MR" Obesity On home oxygen therapy 3 LPM cont Osteoarthritis Pancreatic cyst Paroxysmal atrial fibrillation Psoriasis Renal cyst Tobacco use Surgical History H/O colonoscopy "2005, hyperplastic polyps repeat in 10 years " H/O nasal polypectomy History of cataract surgery History of intestinal surgery History of surgery AVF creation S/P appendectomy "1971" S/P cholecystectomy "1971" S/P left oophorectomy "1981" S/P ASH (total abdominal hysterectomy) "For Fibroids " Family History Father Myocardial infarction, Onset Age: 64 Mother , 87 Alzheimer disease Other No family history of adverse response to anesthesia Social History Smoking Status: Light tobacco smoker Tobacco Type: Cigarettes Cigarettes Per Day: 3; Second Hand Exposure: No; Do You Dip or Chew Tobacco: No; Hx Alcohol Use: No Hx Substance Use: No Preferred Language: Sri [place]ankan Communication Ability: Effective Brattice Builder 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 Beliefs That Will Affect Care: None marital status: / Current Living Situation: Alone current occupational status: retired Other Information That Helps Us Care for You: No Feels Safe at Home: Yes Safety Concerns: Feels Safe At This Time Assistive Devices: Glasses, Oxygen - Continuous and Walker Review of Systems Review of Systems: All systems reviewed & are unremarkable except as noted in HPI & below Physical Exam Physical Exam: Constitutional: Fraile, elderly, F, lying in bed, vitals as above, NAD, pleasant, conversing easily Head: Normocephalic, Atraumatic Eyes: PERRL, conjunctivae normal, anicteric sclerae ENMT: external ear and nose normal, oropharynx normal dry membranes Neck: trachea midline, no thyromegaly normal visual inspection Respiratory: on 3L of O2 via NC, normal respiratory effort, lungs clear to auscultation, no wheeze, rales, rhonchi. Normal insp/exp effort, no accessory muscle use Cardiovascular: RRR, no murmur, no edema Vessels: no JVD or carotid bruit , LUE AV fistula Chest: normal inspection of chest Abdomen: normal bowel sounds, soft, nontender, no hepatosplenomegaly Musculoskeletal: no cyanosis or clubbing, ecchymosis to Dorsal aspect of L hand, AROM t b/l upper ext, lower not tested in setting of acetabular fx Skin: no rashes, warm and dry normal turgor Neurologic: PERRL, EOMI, accommodation nl, no face palsy, no dysarthria CN's II-XI intact bilaterally and moves all extremities Psychiatric: A+Ox3, euthymic affect Lymphatic: no cervical or axillary lymphadenopathy : deferred Results & Data Results & Data ([facility]) Vital Signs (Past 12 Hours) Vital Signs Temp Pulse Resp BP Pulse Ox O2 Del Method O2 Flow Rate 05/12/22 10:06 56 L 05/12/22 07:20 36.7 C 05/12/22 06:32 94 Nasal Cannula 3 05/12/22 06:08 65 05/12/22 06:20 98 Nasal Cannula 2 02/15/23 06:07 37.0 C 75 26 H 135/98 71 L Room Air Diagnostic Findings Chest X-Ray 05/12/22 06:41 SINGLE VIEW CHEST CLINICAL HISTORY: Trauma. FINDINGS: 2 AP, portable, upright chest radiographs are compared to study dated 03/13/2022 and correlated with chest CT dated 04/29/2021. The examination is degraded by portable technique, apical lordotic positioning, and patient rotation. The heart is enlarged without atherosclerotic calcification of the thoracic aorta. The pulmonary vasculature is noncongested. Emphysema and chronic interstitial thickening is similar to previous. Scarring/atelectasis is noted at the lung bases. The lungs and pleural spaces are otherwise clear. No pneumothorax is seen. The skeletal structures are osteopenic. The bony thorax is grossly intact. Calcific tendinopathy suggested in the right shoulder. IMPRESSION: Cardiomegaly and emphysema with no acute cardiopulmonary abnormality identified. ACT 112: Negative or not required by law. Electronically signed by: Luigi García M.D. 05/12/2022 7:09 AM Pelvis X-Ray 05/12/22 06:41 XR pelvis 1-2V routine HISTORY: 77 years-old Female fall pain, trauma acute pelvic pain status post fall COMPARISON: CT abdomen and pelvis of same day and also 09/26/2018 TECHNIQUE: AP view of the pelvis FINDINGS: Moderate to extensive colonic fecal retention. Embolization coils of the mid upper abdomen. Diffusely heterogeneous appearance of the bone marrow. Mild osteoarthritis of the hips. No acute fracture, dislocation or avascular necrosis identified. Mild degeneration of the SI joints. Ill-defined lucent foci of the acetabula. IMPRESSION: 1. Limited exam secondary to obscuring bowel. 2. No acute fracture or dislocation identified. 3. Ill-defined lucent lesions of the bilateral acetabula. Please refer to the CT abdomen and pelvis study of same day for additional details. ACT 112: Negative or not required by law. The above report was generated using voice recognition software. It may contain grammatical, syntax or spelling errors. Electronically signed by: Elder Osborn M.D. 05/12/2022 8:24 AM Abdomen/Pelvis CT 05/12/22 06:[address] WITHOUT CONTRAST HISTORY: Acute generalized abdominal pain status post trauma Trauma TECHNIQUE: Multiaxial CT images of the abdomen and pelvis were performed without contrast. A dose lowering technique was utilized adhering to the principles of ALARA. COMPARISON STUDY: Chest CT of same day, CT abdomen and pelvis 09/26/2018 FINDINGS: Cardiac megaly with trace pericardial effusion. Trace right and small left pleural effusions. Mild subsegmental bibasilar densities suggestive of atelectasis. No pneumatosis or pneumoperitoneum. Hypodense foci of the spleen are again noted measuring up to 3.3 cm, stable from prior. Stable right adrenal gland adenoma, 1.5 cm with unchanged soft tissue attenuating 2.3 cm left adrenal gland lesion, also likely benign. 2.2 cm cystic lesion of the pancreas tail with subcentimeter calcification, previously measuring less than 2 cm. Embolization coils are noted within the region of the gastroduodenal artery. Moderately atrophic pancreas. Nonspecific mildly hyperdense attenuation of the liver. No evidence of cirrhosis or hepatic mass. Atrophic kidneys with diffuse cortical thinning. Bilateral renal cysts. Stable indeterminate 2 cm lesion of the interpolar right kidney. Bilateral renal vascular calcifications. There is no hydronephrosis. Partial distention of the urinary bladder. Hysterectomy. Atherosclerosis of the aorta and branch vessels without aneurysm. No lymphadenopathy identified. Moderate colonic fecal retention. No bowel obstruction or bowel wall thickening. Nonvisualization of the appendix. Trace free sternal stranding. There is an acute mildly angulated nondisplaced fracture involving the lower sacrum, predominantly at S4. No additional acute fracture or dislocation identified. No acute pelvic ring fracture. Transitional lumbosacral anatomy. 2.7 cm lucent focus of the posterior right acetabulum, image 385 in retrospect has increased in size from the 2019 study, possibly degenerative. There is a new pathologic lucent focus measuring 2.9 cm involving the anterior left acetabulum with anterior cortical breakthrough. Additional pathologic lucent lesion of the anterior right acetabulum measuring 2.1 cm is new from prior without pathologic fracture. IMPRESSION: 1. Acute mildly angulated and nondisplaced inferior sacral fracture. 2. Pathologic lucent lesions of the bilateral acetabula with mild anterior cortical dehiscence/fracturing on the left. Differential considerations would include multiple myeloma versus lytic metastasis from unknown primary. Oncologic consultation is needed. 3. No acute posttraumatic intra-abdominal or intrapelvic abnormality. 4. Cardiomegaly with trace right and small left pleural effusions. 5. Additional findings as above. ACT 112: Negative or not required by law. The above report was generated using voice recognition software. It may contain grammatical, syntax or spelling errors. Electronically signed by: Elder Osborn M.D. 05/12/2022 8:[address] 05/12/22 06:42 CT cervical spine wo con CT DOSE: 2407.95 mGy.cm CLINICAL HISTORY: 77 years-old Female with Trauma. Acute neck trauma status post fall COMPARISON: Head CT of same day TECHNIQUE: Multiple axial CT images of the cervical spine were obtained without contrast. A dose lowering technique was utilized adhering to the principles of ALARA. FINDINGS: Demineralized appearance of the bones. Multilevel intervertebral disc space narrowing, moderate at C5-C6 with mild to moderate multilevel facet arthrosis. Small posterior disc osteophyte complex at T2-T3. Severe upper thoracic facet arthrosis. Multilevel neural foraminal narrowing. No acute fracture or subluxation identified. 2.1 cm right-sided thyroid nodule. Punctate calcifications of the parotid glands. No prevertebral edema. The visualized lung apices appear clear. IMPRESSION: No acute cervical spine fracture or subluxation identified. ACT 112: Negative or not required by law. The above report was generated using voice recognition software. It may contain grammatical, syntax or spelling errors. Electronically signed by: Elder Osborn M.D. 05/12/2022 8:[address] 05/12/22 06:42 CT SCAN OF THE CHEST WITHOUT IV CONTRAST CLINICAL HISTORY: Trauma. COMPARISON STUDY: Chest x-ray dated 05/12/2022. Prior chest CT scans, most recently dated 04/29/2021. TECHNIQUE: CT scan of the thorax was performed from the thoracic inlet to the upper abdomen. Images are reviewed in the axial, sagittal, and coronal planes. IV contrast was not administered for this examination as per the referring clinician. Note that the examination was performed in suboptimal fashion without IV contrast. A dose lowering technique was utilized adhering to the principles of ALARA. The examination is degraded by motion artifact, as well as by streak artifact from the arms which could not be elevated above the chest. FINDINGS: Thyroid: The thyroid gland is enlarged and heterogeneous. A right lobe nodule measures up to 2.5 cm. Thoracic aorta: There is atherosclerotic calcification of the thoracic aorta, which is normal in caliber and demonstrates standard 3-vessel arch anatomy. Heart: The heart is enlarged noting a small pericardial effusion. The coronary arteries are densely calcified. Lungs and pleural spaces: Evaluation of the lung parenchyma is compromised by motion artifact. Emphysematous change is similar to previous. Secretions are noted in the trachea. There are small pleural effusions, left larger than right with dependent atelectasis. No pneumothorax is seen. There is no airspace consolidation typical for pneumonia. Scattered pulmonary nodules are likely unchanged from previous. A videotape sales representative 3 mm nodule in the right middle lobe as seen on image #197, and a 3 mm right upper lobe nodule seen on image #111. Mediastinum: Mediastinal lymphadenopathy similar to previous. A precarinal node measures up to 16 mm in short axis. Madina: Not well assessed without IV contrast. Axillae: There is no axillary lymphadenopathy. Upper abdomen: A 3 cm cyst in the spleen is similar to previous. The liver appears diffusely hyperdense which could be seen with amiodarone therapy or iron overload. Bilateral adrenal nodules are partially visualized and similar to previous. Skeletal structures: The skeletal structures are osteopenic. There is an osteolytic lesion in the right glenoid with probable pathologic fracture. No additional foci of osteolytic bone disease are identified in the thorax. The remainder of the bony thorax appears intact. IMPRESSION: 1. There is no acute posttraumatic intrathoracic abnormality. 2. Cardiomegaly and emphysema. 3. An osteolytic lesion is seen within the right glenoid with possible pathologic fracture. This could represent metastatic disease versus myeloma. Correlate for any oncological history. 4. The remainder the bony thorax appears intact. No additional osteolytic bony lesions are identified in the thorax. 5. Small pleural effusions, left larger than right. 6. Mediastinal lymphadenopathy is nonspecific and similar to previous. 7. There is a 2.5 cm right lobe thyroid nodule. Consider nonemergent thyroid ultrasound in follow-up. 8. Additional findings as above. ACT 112: Negative or not required by law. Electronically signed by: Luigi García M.D. 05/12/2022 8:[address] 05/12/22 06:42 CT SCAN OF THE BRAIN WITHOUT IV CONTRAST CLINICAL HISTORY: Trauma. COMPARISON STUDY: No priors. TECHNIQUE: Unenhanced axial CT scan of the brain is performed from the vertex to the skull base. A dose lowering technique was utilized adhering to the principles of ALARA. FINDINGS: Brain parenchyma: There is age-related involutional change noting mild subcortical and periventricular microangiopathic disease. There is no hemorrhage, mass effect, or evidence of acute territorial ischemia by CT criteria. Yoo-white matter differentiation is preserved. No extra-axial fluid collection is seen. Ventricles, sulci, cisterns: Prominent secondary to involutional change. Intracranial vasculature: There is atherosclerotic calcification of the cavernous carotid and vertebral artery. Calvarium: The skeletal structures are osteopenic. No depressed calvarial fracture is seen. Soft tissues: There is a tiny posterior scalp contusion. Sialoliths are noted in both parotid glands. Sinuses and mastoids: There is mild mucosal thickening in both maxillary antra. The remaining paranasal sinuses are clear. The mastoid air cells are well pneumatized. Orbits: The bony orbits are grossly intact. There are bilateral ocular lens implants. IMPRESSION: There is no hemorrhage, mass effect, or evidence of acute territorial ischemia by CT criteria. ACT 112: Negative or not required by law. Electronically signed by: Luigi García M.D. 05/12/2022 8:10 AM Medications Administered Medication List Morphine Sulfate (Morphine Sulfate 4 Mg/Ml 1 Ml Carp\\Vial) 2 mg IV Q2H PRN PRN Reason: Severe Pain (Rating 7,8,9,10) Stop: 05/26/22 06:40 Last Admin: 05/12/22 07:28 Dose: 2 mg Documented By: NDW Discontinued Medications Acetaminophen (Ofirmev) 1,000 mg in 100 mls @ 400 mls/hr IV NOW STA Stop: 05/12/22 06:59 Last Infusion: 05/12/22 07:31 Dose: 0 mls/hr Documented By: Admin: 05/12/22 07:09 Dose: 400 mls/hr Documented By: NDW ECG Rate (beats per minute): 75 Rhythm: normal sinus Additional Comments: qtc 498ms COVID-19 Results Results COVID-19 Adm Lab Results: RBC 3.00 M/uL (4.20-5.40) L 05/12/22 WBC 12.06 K/ul (4.8-10.8) H 05/12/22 Hgb 11.9 g/dl (12.0-16.0) L 05/12/22 Hct 34.6 % (37.0-47.0) L 05/12/22 Plt Count 197 K/uL (130-400) 05/12/22 Neutrophils (%) (Auto) 87.7 % 05/12/22 Lymphocytes (%) (Auto) 3.9 % 05/12/22 Monocytes # (Auto) 0.88 K/uL (0.11-0.59) H 05/12/22 Eosinophils # (Auto) 0.01 K/uL (0-0.50) 05/12/22 Immature Granulocyte % (Auto) 0.6 % 05/12/22 Neutrophils # (Auto) 10.58 K/uL (1.40-6.50) H 05/12/22 Lymphocytes # (Auto) 0.47 K/uL (1.2-3.4) L 05/12/22 Monocytes # (Auto) 0.88 K/uL (0.11-0.59) H 05/12/22 Eosinophils # (Auto) 0.01 K/uL (0-0.50) 05/12/22 Basophils # (Auto) 0.05 K/uL (0-0.2) 05/12/22 Immature Granulocyte # (Auto) 0.07 K/uL (0.01-0.20) 3 Rouleau 1+ 05/12/22 Na 138 mmol/L (136-145) 05/12/22 K 4.4 mmol/L (3.5-5.1) 05/12/22 Cl 99 mmol/L (98-107) 05/12/22 CO2 29 mmol/L (21-32) 05/12/22 Anion Gap 10 (3-11) 05/12/22 BUN 25 mg/dl (6-23) H 05/12/22 Creatinine 5.19 mg/dl (0.6-1.2) H* 05/12/22 BUN/Creatinine Ratio 4.8 (10-20) L 05/12/22 Glucose Level 126 mg/dl (70-99(Fasting)) H 05/12/22 Ca 9.3 mg/dl (8.5-10.1) 05/12/22 Total Bilirubin 0.7 mg/dl (0.2-1.0) 05/12/22 AST/SGOT 40 U/L (13-39) H 05/12/22 ALT/SGPT 23 U/L (7-52) 05/12/22 Alkaline Phosphatase 85 U/L (34-104) 05/12/22 Total Protein 6.8 gm/dl (6.0-8.3) 05/12/22 Albumin 4.1 gm/dl (3.4-5.0) 05/12/22 Globulin 2.7 gm/dl (2.5-4.0) 05/12/22 Albumin/Globulin Ratio 1.5 (0.9-2) 05/12/22 Total CK 809 U/L (26-192) H 05/12/22 PTT 27.4 Seconds (21.0-31.0) 05/12/22 INR 1.0 (0.9-1.1) 05/12/22 SARS-CoV-2, RNA, NAAT NEGATIVE (NEGATIVE) 05/12/[address] 05/12/22 Chest X-Ray 05/12/22 Code Status & VTE Plan Code Status FULL CODE VTE Prophylaxis Plan VTE Prophylaxis will be ordered: Yes Supervising Physician Co-Signing Physician Notes I have seen and examined the patient and have discussed the case with the provider above. I agree with the assessment and plan as stated. 77-year-old female with multiple medical problems presents after a fall reporting pain. Work-up revealed acute mildly angulated nondisplaced sacral fracture. She was also found to have lucencies in her bilateral acetabulum consistent with possible pathologic lesion. Her right shoulder imaging also revealed an osteolytic fracture secondary to pathologic lesion. CBC revealed evidence of rouleaux formation. This patient is not known to have a history of multiple myeloma and outpatient record review revealed a hip x-ray in February 16 with no evidence of lucency, fracture or pathological lesion. The patient overall reports generalized pain but denies chest pain, shortness of breath, changes in her bowels, or other issues. She has a chronic cough that is unchanged. On physical exam she is well-nourished well-developed female in no acute distress. She is mentating clearly. There is no gross focal neurologic deficit. Lungs are clear to auscultation bilaterally. Cardiac exam reveals S1- S2 heard with no evidence of murmurs gallops or rubs. She has no peripheral edema. Abdomen is soft nontender nondistended. Generalized weakness is present and muscular exam is somewhat limited secondary to pain. Work-up includes a CBC revealing a white blood cell count of 12, H/H is 11.9/34.6 improved from her last H&H in March 18 which was 8.3/25.3. Platelet count is normal. Rouleaux formation seen, however circulating plasma cells are not seen in the peripheral blood smear per pathology. Chemistry is within normal limits aside from her BUN of 25 and creatinine 5.2 with known history of ESRD on hemodialysis. She just received hemodialysis yesterday. Calcium is 9.3. CK is 89. Troponin is 55.7 followed by 64.2. EKG is nonischemic. TSH within normal limits. Multiple imaging studies were performed with abnormalities on the chest CT which includes an osteolytic lesion seen in the right glenoid with possible pathologic fracture. Differential includes metastatic disease versus myeloma. There is a 2.5 cm right thyroid nodule. Also the abdomen pelvis CT without contrast reveals pathologic lucent lesions of the bilateral acetabulum with mild anterior cortical dehiscence/fracturing on the left. There is also an acute mildly angulated nondisplaced inferior sacral fracture present. 1. Nontraumatic rhabdomyolysis 2/2 prolonged immobilization 2. Sacral fracture 3. 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 Bilateral acetabular lesions that appear pathologic. 5. General weakness with recurrent falls 6. ESRD on hemodialysis. Admitted to medicine and consulted nephrology who will manage fluid with hemodialysis. No IV fluids were indicated at this time. Orthopedics was consulted and recommends weightbearing as tolerated for sacral fracture. We w ill continue with pain management as needed. She was newly found to have an osteolytic lesion in the right shoulder and questionable acetabular lesions in the bilateral hips. We will continue work-up of these with an MRI with and without contrast of the pelvis. She will need a follow-up oncology consult as outpatient and a PET scan. SPEP was ordered (UPEP not ordered as she is anuric). Again, continue with supportive care including pain management. Mildly elevated troponin without acceleration is likely reflective of demand ischemia in setting of elevated CK. DO Calvin
--- NOTE | 2022-05-12 11:38 | Nephrology Consultation ---
Date of Consultation May 12, 2022 Assessment & Plan (1) ESRD (end stage renal disease) on dialysis: On Tuesday in center hemodialysis via AV fistula and adherent with treatments. Chemistries and volume status currently acceptable Next dialysis tomorrow or as clinical needs dictate Will consider holding ARLETTE when indicated for dialysis (not likely to be indicated soon) pending evaluation of lytic bone lesions (2) Lytic bone lesions on xray: Per primary service; notably on chest CT earlier this month, no lytic or other suspicious lesions seen apart possibly from small to moderate bilateral pleural effusions; follow-up myeloma work-up, await orthopedic input, consider non urgent oncology evaluation. appreciate team efforts in avoiding gadolinium-ba sed studies in this dialysis patient (3) Rhabdomyolysis: Not currently meeting criteria for rhabdomyolysis but certainly at risk for it Trend CK No indication for aggressive fluid resuscitation since the patient is already on dialysis and is both anuric and prone to volume overload due to cardiopulmonary diagnoses; appreciate d/w primary service History of Present Illness Reason for Consultation: ESRD on HD Requesting Physician: Dr Simpson Attending Physician: Dr. Simpson History of Present Illness 77-year-old female who I am asked to see for dialysis needs was admitted this morning with possible left acetabular fracture and nondisplaced sacral fracture after a fall at home. She lay on the ground for approximately 12 hours prior to receiving assistance. 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 She dialyzes under my care at [facility] Tuesday via AV fistula and is generally adherent with treatment. She was admitted here late February 2022 with A-fib with rapid ventricular response and pneumonia. Started on amiodarone at that hospital discharge. Concern for rhabdomyolysis given history and presenting CK of 809. Orthopedic consultation pending. Also noted to have bilateral acetabular pathologic lesions on admission imaging with initial myeloma work-up in process. Allergies Allergy/AdvReac Type Severity Reaction Status Date / Time No Known Allergies Allergy Verified 05/12/22 10:01 Home Medications Medication Instructions Recorded Confirmed Type ergocalciferol (vitamin D2) 1,250 50,000 unit PO MONTHLY 09/26/18 05/12/22 History mcg (50,000 unit) capsule hydralazine 50 mg tablet 100 mg PO BID 09/26/18 05/12/22 History ipratropium 0.5 mg-albuterol 3 mg 3 ml inhalation QID PRN Shortness 09/26/18 05/12/22 History (2.5 mg base)/3 mL nebulization Of Breath soln vitamin B complex-vitamin C-folic 1 tab PO QAM 09/26/18 05/12/22 History acid 0.8 mg tablet (Arabella-Tika) fluticasone propionate 50 2 spray intranasal HS 01/18/19 05/12/22 History mcg/actuation nasal spray,suspension sevelamer carbonate 800 mg tablet 2,400 mg PO TIDM 01/18/19 05/12/22 History albuterol sulfate 90 mcg/actuation 2 puff inhalation Q4H PRN Wheezing 04/05/19 05/12/22 History aerosol inhaler acetaminophen 325 mg tablet 650 mg PO Q6H PRN Pain 04/14/21 05/12/22 History (Tylenol) camphor-menthol 0.5 %-0.5 % lotion 1 applic topical DIRECTED PRN 04/14/21 05/12/22 History Itching docusate sodium 100 mg capsule 100 mg PO BID PRN Constipation 04/14/21 05/12/22 History (Colace) epoetin gabriel 10,000 unit/mL 0 unit IV DIRECTED 04/14/21 05/12/22 History injection solution (Procrit) lidocaine-prilocaine 2.5 %-2.5 % 1 applic topical DIRECTED PRN 04/14/21 05/12/22 History topical cream PRIOR TO DIALYSIS lisinopril 40 mg tablet 40 mg PO QAM 04/14/21 05/12/22 History loperamide 2 mg capsule (Imodium 2 mg PO QID PRN Diarrhea 04/14/21 05/12/22 History A-D) valacyclovir 1 gram tablet 1,000 mg PO QAM 04/14/21 05/12/22 History fluorometholone 0.1 % eye 1 drp OPL QAM 01/25/22 05/12/22 History drops,suspension fluticasone 250 mcg-salmeterol 50 1 inh inhalation BID 01/25/22 05/12/22 History mcg/dose blistr powdr for inhalation (Advair Diskus) amiodarone 200 mg tablet 200 mg PO DAILY 30 days #60 tabs 05/12/22 05/12/22 Rx Patient History Medical History Adrenal adenoma Anemia of chronic disease AV fistula LUE Chronic respiratory failure with hypoxia, on home O2 therapy COPD, moderate On 08/19/15 09:47 Mare Pato wrote "2L O2 at home" Diastolic CHF DM type 2 (diabetes mellitus, type 2) IDDM Dyslipidemia ESRD (end stage renal disease) on dialysis follows with Dr. Reed; Hillary Corley, Sat - [facility] (since 02/2013) GI bleed hx H/O cardiovascular stress test "05/2013 - negative for ischemia" History of colon polyps History of GI bleed History of Helicobacter pylori infection HTN (hypertension) Moderate mitral regurgitation "moderate to severe on 12/2015 echo" On 01/13/16 15:17 Blanca Chan wrote "echo 06/2015 - calcified mitral valve, moderate MR" Obesity On home oxygen therapy 3 LPM cont Osteoarthritis Pancreatic cyst Paroxysmal atrial fibrillation Psoriasis Renal cyst Tobacco use Surgical History H/O colonoscopy "2005, hyperplastic polyps repeat in 10 years " H/O nasal polypectomy History of cataract surgery History of intestinal surgery History of surgery AVF creation S/P appendectomy "1971" S/P cholecystectomy "1971" S/P left oophorectomy "1981" S/P ASH (total abdominal hysterectomy) "For Fibroids " Family History Father Myocardial infarction, Onset Age: 64 Mother , 87 Alzheimer disease Other No family history of adverse response to anesthesia Social History Smoking Status: Light tobacco smoker Tobacco Type: Cigarettes Cigarettes Per Day: 3; Second Hand Exposure: No; Do You Dip or Chew Tobacco: No; Hx Alcohol Use: No Hx Substance Use: No Preferred Language: Hungarian Communication Ability: Effective Payroll Clerk 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 Beliefs That Will Affect Care: None marital status: / Current Living Situation: Alone current occupational status: retired Other Information That Helps Us Care for You: No Feels Safe at Home: Yes Safety Concerns: Feels Safe At This Time Assistive Devices: Glasses, Oxygen - Continuous and Walker Review of Systems Review of Systems: All systems reviewed & are unremarkable except as noted in HPI & below Physical Exam Constitutional: well developed, well nourished, + frail appearing (really tired) and cooperative; no acute distress Eyes: EOM intact bilaterally ENMT: Ears: no external ear abnormality Nose: no external nose abnormality Mouth: + dry oral mucous membranes Neck: no nuchal rigidity Respiratory: normal respiratory effort Auscultation: + diminished lung sounds Cardiovascular: Rate/Rhythm: regular rate and regular rhythm Heart Sounds: no murmur Extremities: + AV fistula (+ t/b); no edema Gastrointestinal (Abdomen): Inspection/Auscultation: normal bowel sounds Percussion/Palpation: abdomen soft; abdomen nontender Musculoskeletal: Extremities: strength 5/5 throughout Skin: no rashes, warm and dry Neurologic: louie, fluent speech, no tremor Psychiatric: Orientation: alert and oriented x 3 Results & Data ([facility]) Vital Signs (Past 12 Hours) Vital Signs Temp Pulse Resp BP Pulse Ox O2 Del Method O2 Flow Rate 05/12/22 11:00 55 L 15 100 05/12/22 11:00 124/49 L 05/12/22 10:30 56 L 17 100 05/12/22 10:30 126/44 L 05/12/22 10:00 56 L 17 05/12/22 10:00 132/65 05/12/22 09:30 57 L 15 100 05/12/22 09:30 140/55 L 05/12/22 09:00 57 L 15 100 05/12/22 09:00 131/46 L 05/12/22 08:30 57 L 13 100 05/12/22 08:30 130/56 L 05/12/22 08:21 59 L 24 100 05/12/22 08:21 130/50 L 05/12/22 08:04 100 05/12/22 07:30 99 05/12/22 07:30 159/59 H 05/12/22 07:01 95 05/12/22 07:01 154/69 H 05/12/22 07:00 104 H 19 96 05/12/22 06:30 64 19 100 05/12/22 06:15 135/98 05/12/22 06:15 74 21 05/12/22 06:11 74 27 H 05/12/22 10:06 56 L 05/12/22 07:20 36.7 C 05/12/22 06:32 94 Nasal Cannula 3 05/12/22 06:08 65 05/12/22 06:20 98 Nasal Cannula 2 05/12/22 06:07 37.0 C 75 26 H 135/98 71 L Room Air Laboratory Results 05/12/22 06:23 05/12/22 06:23 Diagnostic Findings imaging study reports reviewed
[2022-05-12] MEDS ORDERED: ACETAMINOPHEN 325 MG TAB PO PRN (11:55)
[2022-05-12] MEDS ORDERED: traMADol HCL 50 MG TABLET PO PRN ×2 (11:55)
[2022-05-12] MEDS ORDERED: ALBUTEROL HFA 8 GM INHALER INH PRN (11:55)
[2022-05-12] MEDS ORDERED: ALBUT/IPRATROP 3MG/0.5MG NEB 3 ML VIAL INH PRN (11:55)
[2022-05-12] MEDS ORDERED: PROMETHAZINE HCL 6.25 MG in SODIUM CHLORIDE 0.9% 50 ML IV PRN (11:55)
[2022-05-12] MEDS ORDERED: POLYETHYLENE (MIRALAX) 17 GM PACK PO PRN (11:55)
[2022-05-12] MEDS ORDERED: SEVELAMER HCL 800 MG TABLET PO PRN (12:08)
[2022-05-12] MEDS: DOCUSATE SODIUM/SENNA 50/8.6MG TAB PO SCH ×2 (13:49→20:02)
[2022-05-12] MEDS: SEVELAMER HCL 800 MG TABLET PO SCH ×2 (13:49→17:08)
[2022-05-12] MEDS: HEPARIN SOD 5,000 UNIT/0.5 ML VIAL SQ SCH ×2 (13:50→20:02)
[2022-05-12] MEDS ORDERED: oxyCODONE HCL IR 5 MG TAB (IMMEDIATE RELEASE) PO PRN (19:16)
[2022-05-12] MEDS ORDERED: oxyCODONE HCL IR 5 MG TAB (IMMEDIATE RELEASE) PO STA (19:16)
[2022-05-12] MEDS: hydrALAZINE TAB 50 MG TAB PO SCH (20:01)
[2022-05-12] MEDS: FLUTICASONE PROPIONATE NA SPR 16 GM BTL SCH (20:02)
--- NOTE | 2022-05-12 22:25 | Electrocardiogram Report ---
Test Reason : Blood Pressure : / mmHG Vent. Rate : 075 BPM Atrial Rate : 075 BPM P-R Int : 202 ms QRS Dur : 102 ms QT Int : 446 ms P-R-T Axes : 033 080 084 degrees QTc Int : 498 ms Normal sinus rhythm Septal infarct , age undetermined Nonspecific ST abnormality Abnormal ECG When compared with ECG of 15-MAR-2022 06:05, [place] interval has decreased Septal infarct is now Present Confirmed by Willie Castro ([id number]) on 05/12/2022 10:25:03 PM Referred By: ED Confirmed By:Willie Castro
[2022-05-13] MEDS: HEPARIN SOD 5,000 UNIT/0.5 ML VIAL SQ SCH ×3 (05:46→21:10)
[2022-05-13 07:04] LABS: Basophils # (auto) 0.05 K/uL (0-0.2); Basophils % (auto) 0.8 %; Eosinophils # (auto) 0.11 K/uL (0-0.50); Eosinophils % (auto) 1.8 %; Hematocrit (blood only) 30.7 % (37.0-47.0); Hemoglobin 10.4 g/dl (12.0-16.0); Immature Granulocytes # (auto) 0.02 K/uL (0.01-0.20); Immature Granulocytes % (auto) 0.3 %; Lymphocytes # (auto) 0.88 K/uL (1.2-3.4); Lymphocytes % (auto) 14.5 %; Mean Corpuscular Hemoglobin 39.1 pg (25.0-34.0); Mean Corpuscular Hgb Conc 33.9 g/dL (32.0-36.0); Mean Corpuscular Volume 115.4 fL (80.0-100.0); Mean Platelet Volume 11.1 fL (9.4-12.4); Monocytes # (auto) 0.69 K/uL (0.11-0.59); Monocytes % (auto) 11.4 %; Neutrophils % (auto) 71.2 %; Platelet Count 152 K/uL (130-400); RDW Coefficient of Variation 13.5 % (11.5-14.5); RDW Standard Deviation 57.6 fL (36.4-46.3); Red Blood Count 2.66 M/uL (4.20-5.40); White Blood Count 6.05 K/ul (4.8-10.8)
[2022-05-13 07:23] LABS: Albumin Globulin Ratio 1.4 (0.9-2); Albumin Level 3.4 gm/dl (3.4-5.0); BUN Creatinine Ratio 5.2 (10-20); Bilirubin,Total 0.5 mg/dl (0.2-1.0); Creatinine Clr Calc Pharmacy 6.5 ml/min; Est GFR (African American) 5.3 ml/min; Est GFR (Non-African American) 4.6 ml/min; Globulin 2.5 gm/dl (2.5-4.0); Magnesium 2.3 mg/dl (1.7-2.4); Phosphorus 4.9 mg/dl (2.5-4.9); Potassium 4.6 mmol/L (3.5-5.1); Total Protein 5.9 gm/dl (6.0-8.3)
[2022-05-13] MEDS ORDERED: SODIUM CHLORIDE 0.9% 1000ML 1,000 ML IV PRN (07:29)
[2022-05-13] MEDS ORDERED: HEPARIN SOD (PORCINE) 1000 UNIT/ML IV ONE (07:29)
[2022-05-13] MEDS: SEVELAMER HCL 800 MG TABLET PO SCH ×3 (08:03→16:56)
--- NOTE | 2022-05-13 08:56 | Magnetic Resonance Report ---
MRI OF THE PELVIS WITHOUT IV CONTRAST CLINICAL HISTORY: Osteolytic lesions. COMPARISON STUDY: Pelvic CT dated 05/12/2022. TECHNIQUE: MRI of the pelvis is performed utilizing various T1 and T2-weighted sequences in the axial , sagittal, and coronal planes. IV contrast was not measured for this examination. FINDINGS: Marrow signal intensity is heterogeneous. Osteolytic lesions are again seen within the acet abula bilaterally. The larger lesion is seen on the left on axial image #30 and measures 2.9 cm. Lesi ons on the right are seen anteriorly on image #27 measuring 1.8 cm and posteriorly on image #31 measu ring 2.4 cm. Marrow edema around the anterior acetabular lesions likely represents pathologic fractur es. No additional lesions are clearly identified. There is chronic posttraumatic deformity of the sac rum. 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 Arthritic changes are present in both hips with mild marrow edema. There is no significant hip joint effusion. There is no evidence of avascular necrosis of the femoral heads. There is generalized atrophy of the regional musculature. N o trochanteric bursitis is identified. The origin of the hamstrings tendons appear intact. The bladde r is decompressed and not well evaluated. The uterus is surgically absent. No adnexal lesion is sugge sted. Imaged portions of bowel show no evidence of obstruction. There is no free fluid in the cul-de- sac. Subcutaneous soft tissue edema overlies both hips, right greater than left. IMPRESSION: 1. There are bilateral osteolytic lesions involving the acetabula. Top differential considerations in clude metastatic disease versus myeloma, and these were better assessed on yesterday's pelvic CT. 2. There is mild marrow edema involving the anterior acetabular lesions suggesting pathologic fractur es. 3. There is chronic posttraumatic deformity of the sacrum. 4. Arthritic change and marrow edema is seen in the hips. 5. Subcutaneous soft tissue edema overlies both hips, right greater than left. Dictated: 05/13/2022 8:18 AM Transcribed: 05/13/2022 8:38 AM Omero [id number] [email or web address] Electronically signed by: Luigi García M.D. 05/13/2022 8:55 AM
[2022-05-13] MEDS: LIDOCAINE/PRILOCAINE 2.5% EA CRM EXT SCH (09:36)
--- NOTE | 2022-05-13 09:57 | Orthopedic Consultation ---
Date of Consultation May 13, 2022 Assessment & Plan (1) Lytic bone lesion of hip: She has osteolytic lesions in bilateral acetabulae and right glenoid. The osteolytic lesions in her hips are not in the weightbearing dome of the acetabulum bilaterally, and I think it is safe for her to weight-bear as t olerated. I think it is safe for her to use her right shoulder as tolerated as well. She does not require any urgent orthopedic surgical intervention. However, these multiple osteolytic lesions certainly raise the question of metastatic tumors. She denies any known cancer history. I think she requires an oncology work-up for metastatic cancer. I would recommend a referral to orthopedic oncology (such as Dr. Freddy Sow at [facility] orthopedics) as an outpatient after discharge. We will sign off at this point. Call with questions. History of Present Illness Reason for Consultation: Bilateral acetabulum, right glenoid lytic lesions Attending Physician: Jono Reyna MD History of Present Illness Ms. Velasco is a 77-year-old female with multiple medical problems who was admitted after ground-level fall in the evening on May 11. She was unable to get up after this fall due to pain, and laid on the ground for about 12 hours. She complains mostly about pain in her tailbone area. She does endorse some mild pain in her groin area. She denies any significant leg or hip pain prior to this fall, and normally ambulates without any ambulatory aids. She does endorse chronic pain in her right shoulder. Her right shoulder pain was worsened since she was laying on that right side when she was on the ground. Allergies Allergy/AdvReac Type Severity Reaction Status Date / Time No Known Allergies Allergy Verified 05/12/22 10:01 Home Medications Medication Instructions Recorded Confirmed Type ergocalciferol (vitamin D2) 1,250 50,000 unit PO MONTHLY 09/26/18 05/12/22 History mcg (50,000 unit) capsule hydralazine 50 mg tablet 100 mg PO BID 09/26/18 05/12/22 History ipratropium 0.5 mg-albuterol 3 mg 3 ml inhalation QID PRN Shortness 09/26/18 05/12/22 History (2.5 mg base)/3 mL nebulization Of Breath soln vitamin B complex-vitamin C-folic 1 tab PO QAM 09/26/18 05/12/22 History acid 0.8 mg tablet (Arabella-Tika) fluticasone propionate 50 2 spray intranasal HS 01/18/19 05/12/22 History mcg/actuation nasal spray,suspension sevelamer carbonate 800 mg tablet 2,400 mg PO TIDM 01/18/19 05/12/22 History albuterol sulfate 90 mcg/actuation 2 puff inhalation Q4H PRN Wheezing 04/05/19 05/12/22 History aerosol inhaler acetaminophen 325 mg tablet 650 mg PO Q6H PRN Pain 04/14/21 05/12/22 History (Tylenol) camphor-menthol 0.5 %-0.5 % lotion 1 applic topical DIRECTED PRN 04/14/21 05/12/22 History Itching docusate sodium 100 mg capsule 100 mg PO BID PRN Constipation 04/14/21 05/12/22 History (Colace) epoetin gabriel 10,000 unit/mL 0 unit IV DIRECTED 04/14/21 05/12/22 History injection solution (Procrit) lidocaine-prilocaine 2.5 %-2.5 % 1 applic topical DIRECTED PRN 04/14/21 05/12/22 History topical cream PRIOR TO DIALYSIS lisinopril 40 mg tablet 40 mg PO QAM 04/14/21 05/12/22 History loperamide 2 mg capsule (Imodium 2 mg PO QID PRN Diarrhea 04/14/21 05/12/22 History A-D) valacyclovir 1 gram tablet 1,000 mg PO QAM 04/14/21 05/12/22 History fluorometholone 0.1 % eye 1 drp OPL QAM 01/25/22 05/12/22 History drops,suspension fluticasone 250 mcg-salmeterol 50 1 inh inhalation BID 01/25/22 05/12/22 History mcg/dose blistr powdr for inhalation (Advair Diskus) amiodarone 200 mg tablet 200 mg PO DAILY 30 days #60 tabs 05/12/22 05/12/22 Rx Patient History Medical History Adrenal adenoma Anemia of chronic disease AV fistula LUE Chronic respiratory failure with hypoxia, on home O2 therapy COPD, moderate On 08/19/15 09:47 Mare Whyte wrote "2L O2 at home" Diastolic CHF DM type 2 (diabetes mellitus, type 2) IDDM Dyslipidemia ESRD (end stage renal disease) on dialysis follows with Dr. Reed; Hillary Croley, [facility] - [facility] (since 02/2013) GI bleed hx H/O cardiovascular stress test "05/2013 - negative for ischemia" History of colon polyps History of GI bleed History of Helicobacter pylori infection HTN (hypertension) Moderate mitral regurgitation "moderate to severe on 12/2015 echo" On 01/13/16 15:17 Blanca Chan wrote "echo 06/2015 - calcified mitral valve, moderate MR" Obesity On home oxygen therapy 3 LPM cont Osteoarthritis Pancreatic cyst Paroxysmal atrial fibrillation Psoriasis Renal cyst Tobacco use Surgical History H/O colonoscopy "2005, hyperplastic polyps repeat in 10 years " H/O nasal polypectomy History of cataract surgery History of intestinal surgery History of surgery AVF creation S/P appendectomy "1971" S/P cholecystectomy "1971" S/P left oophorectomy "1981" S/P ASH (total abdominal hysterectomy) "For Fibroids " Family History Father Myocardial infarction, Onset Age: 64 Mother , 87 Alzheimer disease Other No family history of adverse response to anesthesia Social History Smoking Status: Light tobacco smoker Tobacco Type: Cigarettes Cigarettes Per Day: 3; Second Hand Exposure: No; Do You Dip or Chew Tobacco: No; Hx Alcohol Use: No Hx Substance Use: No Preferred Language: Upper Sorbian Communication Ability: Effective Trucksmith 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 Beliefs That Will Affect Care: None marital status: / Current Living Situation: Alone current occupational status: retired Other Information That Helps Us Care for You: No Feels Safe at Home: Yes Safety Concerns: Feels Safe At This Time Assistive Devices: Oxygen - Continuous and Walker Physical Exam Physical Exam: Examination of bilateral hips and right shoulder reveals no obvious deformity or significant swelling. Motor and sensory function is intact distally in all 3 extremities. She does have good range of motion in all 3 joints without significant pain. She endorses a mild "twinge" of pain in bilateral groin areas with leg rotation. Results & Data ([facility]) Vital Signs (Past 12 Hours) Vital Signs Temp Pulse Pulse Resp BP Pulse Ox O2 Del Method 05/13/22 07:47 36.6 C 53 L 19 141/52 H 93 Nasal Cannula 05/13/22 07:29 52 L 05/13/22 03:41 36.6 C 50 L 16 125/67 96 Nasal Cannula 05/12/22 23:55 36.7 C 55 L 16 176/65 H 92 Nasal Cannula 05/12/22 23:00 56 L O2 Flow Rate 05/13/22 07:47 3 05/13/22 07:29 05/13/22 03:41 2 05/12/22 23:55 2 05/12/22 23:[address] scans of the chest and pelvis were reviewed. There are osteolytic lesions within bilateral acetabulae and the right glenoid. Lytic lesion in the right acetabulum is along the posterior wall, and the left acetabulum that is along the anterior wall. Neither 1 of these lesions appear to be involving the weightbearing dome of the acetabulum. Lytic lesion in the right glenoid is in the anteriorsuperior aspect of the glenoid. Cortex/subchondral bone between the lesions and the hip/shoulder joints appears to be very thinned out, maybe with some irregularity, but no obvious gross fracture in any of these 3 joints. No other osteolytic lesions are seen in bilateral shoulders, hips, or pelvis. No lytic lesions are seen in the femoral neck/intertrochanteric region.
[2022-05-13 11:29] LABS: Estimated Average Glucose 105 mg/dl; Hemoglobin A1C 5.3 % (4.5-5.6)
--- NOTE | 2022-05-13 11:40 | Dialysis Progress Note ---
Date of Service May 13, 2022 Assessment & Plan (1) ESRD (end stage renal disease) on dialysis: Plan: On Tuesday in center hemodialysis via AV fistula and adherent with treatments. Chemistries and volume status currently acceptable Tolerating routine dialysis today with slightly shorter treatment than normal since she is taking minimal p.o. and so needs less fluid removal or other dialysis; despite soft tissue edema noted on imaging, I am reluctant to push her fluid removal given soft blood pressures; I lowered her hydralazine dosing by 50% Next dialysis on May 15 or as clinical needs dictate Will consider holding ARLETTE when indicated for dialysis (not likely to be indicated soon) pending evaluation of lytic bone lesions (2) Lytic bone lesions on xray: Plan: Per primary service; osteolytic lesions confirmed on MRI; follow-up myeloma work-up, await orthopedic input, and non urgent oncology evaluation. appreciate team efforts in avoiding gadolinium-based studies in this dialysis patient (3) Rhabdomyolysis: Plan: Not meeting criteria for rhabdomyolysis but certainly at risk for it; however CK downtrending and do not believe we need to follow this any longer No indication for aggressive fluid resuscitation since the patient is already on dialysis and is both anuric and prone to volume overload due to cardiopulmonary diagnoses; appreciate d/w primary service Admission and Anticipated Discharge Date Admission Date: May 12, 2022 Subjective Ongoing significant sacral and bilateral hip pain. Denies current nausea vomiting or dyspnea or lower extremity edema. She did have emesis last evening after MRI Review of Systems Review of Systems: All systems reviewed & are unremarkable except as noted in Subjective Physical Exam Constitutional: well developed, well nourished, + frail appearing (really tired; lying on her side to manage tailbone pain) and cooperative; no acute distress Eyes: EOM intact bilaterally ENMT: Ears: no external ear abnormality Nose: no external nose abnormality Mouth: + dry oral mucous membranes Neck: no nuchal rigidity Respiratory: normal respiratory effort Auscultation: + diminished lung sounds Cardiovascular: Rate/Rhythm: regular rate and regular rhythm Heart Sounds: no murmur Extremities: + AV fistula (+ t/b); no edema Gastrointestinal (Abdomen): Inspection/Auscultation: normal bowel sounds Percussion/Palpation: abdomen soft; abdomen nontender Musculoskeletal: Extremities: strength 5/5 throughout Skin: no rashes, warm and dry Psychiatric: Orientation: alert and oriented x 3 Results & Data ([facility]) Vital Signs (Past 12 Hours) Vital Signs Temp Pulse Pulse Resp BP BP Pulse Ox 05/13/22 11:15 47 L 117/50 L 05/13/22 11:15 36.3 C L 47 L 125/57 L 05/13/22 11:31 36.3 C L 47 L 125/57 L 05/13/22 10:52 36.3 C L 47 L 125/57 L 05/13/22 10:33 36.3 C L 49 L 05/13/22 09:00 05/13/22 07:47 36.6 C 53 L 19 141/52 H 93 05/13/22 07:29 52 L 05/13/22 03:41 36.6 C 50 L 16 125/67 96 05/12/22 23:55 36.7 C 55 L 16 176/65 H 92 O2 Del Method O2 Flow Rate 05/13/22 11:15 05/13/22 11:15 05/13/22 11:31 05/13/22 10:52 05/13/22 10:33 05/13/22 09:00 Nasal Cannula 3 05/13/22 07:47 Nasal Cannula 3 05/13/22 07:29 05/13/22 03:41 Nasal Cannula 2 05/12/22 23:55 Nasal Cannula 2 Laboratory Results 05/13/22 06:02 05/13/22 06:02 Diagnostic Findings MRI pelvis no rozina 1. There are bilateral osteolytic lesions involving the acetabula. Top differential considerations include metastatic disease versus myeloma, and these were better assessed on yesterday's pelvic CT. 2. There is mild marrow edema involving the anterior acetabular lesions suggesting pathologic fractures. 3. There is chronic posttraumatic deformity of the sacrum. 4. Arthritic change and marrow edema is seen in the hips. 5. Subcutaneous soft tissue edema overlies both hips, right greater than left.
[2022-05-13] MEDS: HEPARIN SOD (PORCINE) 1000 UNIT/ML IV SCH ×3 (14:59→15:12)
[2022-05-13] MEDS: hydrALAZINE TAB 50 MG TAB PO SCH ×2 (15:05→21:09)
[2022-05-13] MEDS: DOCUSATE SODIUM/SENNA 50/8.6MG TAB PO SCH ×2 (15:13→21:10)
[2022-05-13] MEDS: ACETAMINOPHEN 325 MG TAB PO PRN (15:16)
[2022-05-13 15:43] LABS: Albumin 3.9 g/dL (3.8-4.8); Alpha 1 Globulin 0.4 g/dL (0.2-0.3); Alpha 2 Globulin 0.8 g/dL (0.5-0.9); Beta-1-Globulin 0.3 g/dL (0.4-0.6); Beta-2-Globulin 0.3 g/dL (0.2-0.5); Gamma Globulin 0.7 g/dL (0.8-1.7); Monoclonal Protein Band 1 DNR g/dL (NONE DETECTED); Monoclonal Protein Band 2 DNR g/dL (NONE DETECTED); Monoclonal Protein Band 3 DNR g/dL (NONE DETECTED); Total Protein 6.4 g/dL (6.1-8.1)
--- NOTE | 2022-05-13 16:09 | Hospitalist Progress Note ---
Date of Service May 13, 2022 Assessment & Plan (1) Fall: (2) Rhabdomyolysis: (3) Acetabular fracture: (4) Lytic bone lesions on xray: (5) Glenoid fracture of shoulder: (6) Closed sacral fracture: (7) Chronic respiratory failure with hypoxia: (8) COPD, moderate: (9) ESRD (end stage renal disease) on dialysis: (10) Diastolic CHF: Plan Patient is a 77 yr female with H/O ESRD on hemodialysis Tuesday//Tuesday, history of T2DM now diet-controlled, COPD with c hronic hypoxic respiratory failure on 3 L of chronic oxygen, PAF on amiodarone therapy off oral anticoagulation, chronic HFpEF, HTN, anemia of renal disease, tobacco abuse, secondary hyperparathyroidism, history of GI bleed secondary to duodenal ulcer who presents to ED after sustaining a fall and laying on ground for approximately 12 hours prior to arrival. Fall Rhabdomyolysis--ruled out Chronic posttraumatic deformity of the sacrum. Anterior acetabular lesions likely pathologic fractures Bilateral osteolytic lesions of the acetabulum DD: Metastatic disease Vs myeloma Possible right glenoid fracture with evidence of osteolytic lesion --Pelvic MRI:There are bilateral osteolytic lesions involving the acetabula. Top differential considerations include metastatic disease versus myeloma, and these were better assessed on yesterday's pelvic CT. There is mild marrow edema involving the anterior acetabular lesions suggesting pathologic fractures. There is chronic posttraumatic deformity of the sacrum. Arthritic change and marrow edema is seen in the hips. Subcutaneous soft tissue edema overlies both hips, right greater than left. --Head CT:There is no hemorrhage, mass effect, or evidence of acute territorial ischemia by CT criteria. --CT neck:No acute cervical spine fracture or subluxation identified. -- CT Chest:There is no acute posttraumatic intrathoracic abnormality. Cardiomegaly and emphysema. An osteolytic lesion is seen within the right glenoid with possible pathologic fracture. This could represent metastatic disease versus myeloma. Correlate for any oncological history. The remainder the bony thorax appears intact. No additional osteolytic bony lesions are identified in the thorax. Small pleural effusions, left larger than right. Mediastinal lymphadenopathy is nonspecific and similar to previous. There is a 2.5 cm right lobe thyroid nodule. Consider nonemergent thyroid ultrasound in follow-up. --Right Shoulder MRI pending -Mild elevation of CK--at risk for Rhabdo Obtain serum electrophoresis, peripheral smear Anuric-unable to do urine electrophoresis Fall precautions Orthopedics consulted PT/OT as able Consider Oncology evaluation when appropriate Chronic Troponin elevation Likely due to ESRD Denies angina symptoms Moderate fecal retention Continue bowel regimen ESRD on HD // Appreciate Nephrology Input HD as per Nephrology Thyroid nodule Noted incidentally on chest CT, 2.5 cm right lobe nodule Recommend nonemergent thyroid ultrasound as outpatient Chronic hypoxic respiratory failure 2/2 COPD Chronic oxygen dependency--on 3 L at baseline Tobacco use No signs of exacerbation continue advair, prn nebs encourage smoking cessation DM II currently off tx HbA1C 5.3 PAF not on OAC 2/2 hx of GIB continue amiodarone Chronic HFpEF HTN Daily weights, strict I's and O's Continue hydralazine and lisinopril Hydralazine dose decreased due to low BP H/O Herpes simplex iridocyclitis continue eye gtts, valtex Anemia of renal disease h/h stable monitor DVT px: SQ Heparin CODE STATUS Full Code Disposition PT/OT prior to discharge Admission and Anticipated Discharge Date Admission Date: May 12, 2022 Subjective Patient is seen and examined at bedside States having sacral, chronic left shoulder pain Had nausea and vomiting while getting MRI today Had hemodialysis today Denies any chest pain, dyspnea, dizziness, abdominal pain No other complaints Review of Systems Review of Systems: All systems reviewed & are unremarkable except as noted in Subjective Physical Exam Physical Exam: Physical Exam: Vitals signs as noted above General Appearance:Moderately built and nourished, farail, no apparent distress Head: normocephalic, Atraumatic Eyes: normal inspection, EOMI Neck: supple, Trachea midline Respiratory/Chest: Decreased breath sounds, CTA, No accessory muscle use Cardiovascular: S1, S2, No murmur Abdomen/GI:Soft, Non tender, Bowel sounds present Extremities/Musculoskeletal:normal inspection, no edema Neurologic/Psych:AAOX3, grossly no focal neurological deficits, LUE decreased ROM, +AV fistula Skin: normal color, warm Results & Data Results & Data ([facility]) Vital Signs (Past 12 Hours) Vital Signs Temp Pulse Pulse Resp BP BP Pulse Ox 05/13/22 14:30 49 L 96/41 L 05/13/22 14:00 50 L 126/62 05/13/22 13:30 50 L 113/56 L 05/13/22 14:36 37.0 C 51 L 124/42 L 05/13/22 13:00 55 L 119/57 L 05/13/22 12:30 47 L 127/53 L 05/13/22 12:00 47 L 113/47 L 05/13/22 11:15 47 L 117/50 L 05/13/22 11:30 48 L 123/56 L 05/13/22 10:52 36.3 C L 47 L 125/57 L 05/13/22 10:33 36.3 C L 49 L 05/13/22 09:00 05/13/22 07:47 36.6 C 53 L 19 141/52 H 93 05/13/22 07:29 52 L O2 Del Method O2 Flow Rate 05/13/22 14:30 05/13/22 14:00 05/13/22 13:30 05/13/22 14:36 05/13/22 13:00 05/13/22 12:30 05/13/22 12:00 05/13/22 11:15 05/13/22 11:30 05/13/22 10:52 05/13/22 10:33 05/13/22 09:00 Nasal Cannula 3 05/13/22 07:47 Nasal Cannula 3 05/13/22 07:29 Laboratory Results Short CBC 05/13/22 Range/Units 06:02 WBC 6.05 (4.8-10.8) K/ul Hgb 10.4 L (12.0-16.0) g/dl Hct 30.7 L (37.0-47.0) % Plt Count 152 (130-400) K/uL BMP 05/13/22 06:02 Sodium 141 Potassium 4.6 Chloride 97 L Carbon Dioxide 36 H BUN 41 H Creatinine 7.85 H* D Glucose 78 Calcium 9.0 Cardiac Enzymes 05/13/22 Range/Units 06:02 Total Creatine Kinase 312 H (26-192) U/L Liver Function 05/13/22 Range/Units 06:02 Total Bilirubin 0.5 (0.2-1.0) mg/dl AST 38 (13-39) U/L ALT 23 (7-52) U/L Alkaline Phosphatase 75 (34-104) U/L Albumin 3.4 (3.4-5.0) gm/dl
[2022-05-13] MEDS: lisinopril 40 MG TAB PO SCH (16:56)
[2022-05-13] MEDS: FLUTICASONE/VILANTEROL 100/25MCG 14 PUFFS/INHALER INH SCH (16:57)
[2022-05-13] MEDS: valACYclovir HCL 500 MG TABLET PO SCH (16:57)
[2022-05-13] MEDS: VITAMIN B COMPLEX TAB PO SCH (16:57)
[2022-05-13] MEDS: FLUTICASONE PROPIONATE NA SPR 16 GM BTL SCH (21:09)
[2022-05-14] MEDS: ACETAMINOPHEN 325 MG TAB PO PRN ×2 (02:34→07:52)
[2022-05-14] MEDS: HEPARIN SOD 5,000 UNIT/0.5 ML VIAL SQ SCH ×3 (05:35→20:46)
[2022-05-14] MEDS: MoRPHine SULFATE 2 MG/ML CARP IV PRN ×2 (05:39→09:15)
[2022-05-14 07:38] LABS: Basophils # (auto) 0.05 K/uL (0-0.2); Basophils % (auto) 0.8 %; Eosinophils # (auto) 0.09 K/uL (0-0.50); Eosinophils % (auto) 1.4 %; Hematocrit (blood only) 29.7 % (37.0-47.0); Immature Granulocytes # (auto) 0.02 K/uL (0.01-0.20); Immature Granulocytes % (auto) 0.3 %; Lymphocytes # (auto) 0.61 K/uL (1.2-3.4); Lymphocytes % (auto) 9.7 %; Mean Corpuscular Hemoglobin 39.5 pg (25.0-34.0); Mean Corpuscular Hgb Conc 33.7 g/dL (32.0-36.0); Mean Corpuscular Volume 117.4 fL (80.0-100.0); Mean Platelet Volume 10.9 fL (9.4-12.4); Monocytes % (auto) 12.7 %; Neutrophils # (auto) 4.72 K/uL (1.40-6.50); Neutrophils % (auto) 75.1 %; Platelet Count 145 K/uL (130-400); RDW Coefficient of Variation 13.7 % (11.5-14.5); RDW Standard Deviation 59.7 fL (36.4-46.3); Red Blood Count 2.53 M/uL (4.20-5.40); White Blood Count 6.29 K/ul (4.8-10.8)
[2022-05-14] MEDS: SEVELAMER HCL 800 MG TABLET PO SCH ×3 (07:50→16:57)
[2022-05-14] MEDS: DOCUSATE SODIUM/SENNA 50/8.6MG TAB PO SCH ×2 (07:51→20:51)
[2022-05-14] MEDS: lisinopril 40 MG TAB PO SCH (07:51)
[2022-05-14] MEDS: hydrALAZINE TAB 50 MG TAB PO SCH ×2 (07:51→20:44)
[2022-05-14] MEDS: VITAMIN B COMPLEX TAB PO SCH (07:51)
[2022-05-14] MEDS: valACYclovir HCL 500 MG TABLET PO SCH (07:52)
[2022-05-14] MEDS: FLUTICASONE/VILANTEROL 100/25MCG 14 PUFFS/INHALER INH SCH (07:53)
[2022-05-14 08:23] LABS: Albumin Globulin Ratio 1.6 (0.9-2); Albumin Level 3.6 gm/dl (3.4-5.0); BUN Creatinine Ratio 5.3 (10-20); Bilirubin,Total 0.4 mg/dl (0.2-1.0); Calcium 8.7 mg/dl (8.5-10.1); Creatinine Clr Calc Pharmacy 8.8 ml/min; Est GFR (African American) 7.6 ml/min; Est GFR (Non-African American) 6.5 ml/min; Globulin 2.3 gm/dl (2.5-4.0); Phosphorus 4.5 mg/dl (2.5-4.9); Potassium 4.2 mmol/L (3.5-5.1); Total Protein 5.9 gm/dl (6.0-8.3)
--- NOTE | 2022-05-14 16:13 | Magnetic Resonance Report ---
MR shoulder RT wo con CLINICAL HISTORY: Eval lytic lesion at glenoid TECHNIQUE: Multiplanar multisequence MR images of the right shoulder were obtained. Comparison: Comparison is made to chest radiograph 03/11/[address] chest abdomen pelvis dated 2021 FINDINGS: There is no evidence of os acromiale. Mild osteoarthropathy seen in the acromioclavicular joint. The re is a 21 x 15 mm mildly T2 hyperintense, T1 hypointense lesion in the glenoid. There is suggestion of a pathologic fracture which is better seen on CT. Cystic degenerative changes are also seen in the humeral head. There is calcific tendinopathy of the supraspinatus and subscapularis without jennifer tear. The biceps tendon is intact and unremarkable. Mild atrophy of the supraspinatus muscle. Complex tear of the labrum is seen. There is a moderate joint effusion with debris noted which may r epresent loose bodies. Normal cartilage and marrow signal in the glenohumeral joint. IMPRESSION: 1. Mildly T2 hyperintense, T1 hypointense lesion in the glenoid with a pathological fracture compati ble with multiple lytic lesions seen on prior CTs. 2. Chronic-appearing labral tear. 3. Tendinopathy of the rotator cuff as above. ACT 112: Negative or not required by law. Electronically signed by: Shadi Calle M.D. 05/14/2022 4:10 PM
--- NOTE | 2022-05-14 16:20 | Hospitalist Progress Note ---
Date of Service May 14, 2022 Assessment & Plan (1) Fall: (2) Rhabdomyolysis: (3) Acetabular fracture: (4) Lytic bone lesions on xray: (5) Glenoid fracture of shoulder: (6) Closed sacral fracture: (7) Chronic respiratory failure with hypoxia: (8) COPD, moderate: (9) ESRD (end stage renal disease) on dialysis: (10) Diastolic CHF: Plan Patient is a 77 yr female with H/O ESRD on hemodialysis Tuesday//Tuesday, history of T2DM now diet-controlled, COPD with c hronic hypoxic respiratory failure on 3 L of chronic oxygen, PAF on amiodarone therapy off oral anticoagulation, chronic HFpEF, HTN, anemia of renal disease, tobacco abuse, secondary hyperparathyroidism, history of GI bleed secondary to duodenal ulcer who presents to ED after sustaining a fall and laying on ground for approximately 12 hours prior to arrival. Fall Rhabdomyolysis--ruled out Chronic posttraumatic deformity of the sacrum. Anterior acetabular lesions likely pathologic fractures Bilateral osteolytic lesions of the acetabulum DD: Metastatic disease Vs myeloma Possible right glenoid fracture with evidence of osteolytic lesion --Pelvic MRI:There are bilateral osteolytic lesions involving the acetabula. Top differential considerations include metastatic disease versus myeloma, and these were better assessed on yesterday's pelvic CT. There is mild marrow edema involving the anterior acetabular lesions suggesting pathologic fractures. There is chronic posttraumatic deformity of the sacrum. Arthritic change and marrow edema is seen in the hips. Subcutaneous soft tissue edema overlies both hips, right greater than left. --Head CT:There is no hemorrhage, mass effect, or evidence of acute territorial ischemia by CT criteria. --CT neck:No acute cervical spine fracture or subluxation identified. -- CT Chest:There is no acute posttraumatic intrathoracic abnormality. Cardiomegaly and emphysema. An osteolytic lesion is seen within the right glenoid with possible pathologic fracture. This could represent metastatic disease versus myeloma. Correlate for any oncological history. The remainder the bony thorax appears intact. No additional osteolytic bony lesions are identified in the thorax. Small pleural effusions, left larger than right. Mediastinal lymphadenopathy is nonspecific and similar to previous. There is a 2.5 cm right lobe thyroid nodule. Consider nonemergent thyroid ultrasound in follow-up. --Right Shoulder MRI showed Mildly T2 hyperintense, T1 hypointense lesion in the glenoid with a pathological fracture compatible with multiple lytic lesions seen on prior CTs. Chronic-appearing labral tear. Lab ordered for MM workup such as serum electrophoresis, peripheral smear- pending Anuric-unable to do urine electrophoresis Fall precautions Orthopedics on board-no urgent orthopedic Dieck surgical intervention needed Ok for weightbearing as tolerated since the osteolytic lesions in her hipsis not in the weightbearing dome of the acetabulum as per ortho She will need referral to orthopedic oncology(such as Dr. Freddy Sow at [facility] orthopedic) as an outpatient Continue PT/OT eval Fall precaution Chronic Troponin elevation Likely due to ESRD Denies angina symptoms Moderate fecal retention Continue bowel regimen ESRD on HD // Appreciate Nephrology Input Next HD is schedule for tomorrow as per nephrology Thyroid nodule Noted incidentally on chest CT, 2.5 cm right lobe nodule Recommend nonemergent thyroid ultrasound as outpatient Chronic hypoxic respiratory failure 2/2 COPD Chronic oxygen dependency--on 3 L at baseline Tobacco use No signs of exacerbation continue advair, prn nebs encourage smoking cessation DM II currently off tx HbA1C 5.3 PAF not on OAC 2/2 hx of GIB continue amiodarone Chronic HFpEF HTN Daily weights, strict I's and O's Continue hydralazine and lisinopril Hydralazine dose decreased due to low BP H/O Herpes simplex iridocyclitis continue eye gtts, valtex Anemia of renal disease h/h stable monitor DVT px: SQ Heparin CODE STATUS Full Code Disposition PT/OT prior to discharge Admission and Anticipated Discharge Date Admission Date: May 12, 2022 Subjective Patient was seen and examined at bedside Sitting in chair with no acute distress Pt said that she has pain with movement She would like to go to [facility] for rehab Denies any chest pain, dyspnea, dizziness, abdominal pain Review of Systems Review of Systems: All systems reviewed & are unremarkable except as noted in Subjective Results & Data Results & Data ([facility]) Vital Signs (Past 12 Hours) Vital Signs Temp Pulse Pulse Resp BP Pulse Ox O2 Del Method 05/14/22 15:24 55 L 05/14/22 15:21 36.7 C 56 L 20 126/61 96 Nasal Cannula 05/14/22 11:14 37.0 C 51 L 20 107/56 L 97 Nasal Cannula 05/14/22 09:21 Nasal Cannula 05/14/22 09:09 57 L 05/14/22 06:40 36.5 C 50 L 18 127/57 L 96 Nasal Cannula O2 Flow Rate 05/14/22 15:24 05/14/22 15:21 05/14/22 11:14 2 05/14/22 09:21 3 05/14/22 09:09 05/14/22 06:40 3
[2022-05-14] MEDS ORDERED: ONDANSETRON INJ 2 MG/ML 2 ML VIAL IV STA (19:01)
[2022-05-14] MEDS: FLUTICASONE PROPIONATE NA SPR 16 GM BTL SCH (20:43)
[2022-05-15] MEDS: HEPARIN SOD 5,000 UNIT/0.5 ML VIAL SQ SCH ×3 (05:34→19:54)
[2022-05-15] MEDS: MoRPHine SULFATE 2 MG/ML CARP IV PRN ×2 (05:36→11:38)
[2022-05-15 07:05] LABS: Basophils # (auto) 0.06 K/uL (0-0.2); Basophils % (auto) 0.5 %; Eosinophils # (auto) 0.08 K/uL (0-0.50); Eosinophils % (auto) 0.7 %; Hematocrit (blood only) 33.1 % (37.0-47.0); Hemoglobin 11.1 g/dl (12.0-16.0); Immature Granulocytes # (auto) 0.06 K/uL (0.01-0.20); Immature Granulocytes % (auto) 0.5 %; Lymphocytes # (auto) 0.51 K/uL (1.2-3.4); Lymphocytes % (auto) 4.4 %; Mean Corpuscular Hemoglobin 38.7 pg (25.0-34.0); Mean Corpuscular Hgb Conc 33.5 g/dL (32.0-36.0); Mean Corpuscular Volume 115.3 fL (80.0-100.0); Mean Platelet Volume 10.8 fL (9.4-12.4); Monocytes # (auto) 1.35 K/uL (0.11-0.59); Monocytes % (auto) 11.7 %; Neutrophils # (auto) 9.47 K/uL (1.40-6.50); Neutrophils % (auto) 82.2 %; Platelet Count 162 K/uL (130-400); RDW Coefficient of Variation 13.2 % (11.5-14.5); RDW Standard Deviation 57.2 fL (36.4-46.3); Red Blood Count 2.87 M/uL (4.20-5.40); White Blood Count 11.53 K/ul (4.8-10.8)
[2022-05-15] MEDS: hydrALAZINE TAB 50 MG TAB PO SCH (07:27)
[2022-05-15] MEDS: VITAMIN B COMPLEX TAB PO SCH (07:27)
[2022-05-15] MEDS: SEVELAMER HCL 800 MG TABLET PO SCH ×3 (07:28→16:11)
[2022-05-15] MEDS: lisinopril 40 MG TAB PO SCH (07:28)
[2022-05-15] MEDS: valACYclovir HCL 500 MG TABLET PO SCH (07:28)
[2022-05-15] MEDS: FLUTICASONE/VILANTEROL 100/25MCG 14 PUFFS/INHALER INH SCH (07:31)
[2022-05-15 07:32] LABS: Albumin Globulin Ratio 1.5 (0.9-2); Albumin Level 3.8 gm/dl (3.4-5.0); BUN Creatinine Ratio 5.2 (10-20); Bilirubin,Total 0.4 mg/dl (0.2-1.0); Creatinine Clr Calc Pharmacy 5.4 ml/min; Est GFR (African American) 4.9 ml/min; Est GFR (Non-African American) 4.2 ml/min; Globulin 2.6 gm/dl (2.5-4.0); Magnesium 2.2 mg/dl (1.7-2.4); Phosphorus 5.7 mg/dl (2.5-4.9); Potassium 4.6 mmol/L (3.5-5.1); Total Protein 6.4 gm/dl (6.0-8.3)
[2022-05-15] MEDS: DOCUSATE SODIUM/SENNA 50/8.6MG TAB PO SCH ×2 (07:35→19:54)
[2022-05-15] MEDS ORDERED: SODIUM CHLORIDE 0.9% 1000ML 1,000 ML IV PRN (07:52)
[2022-05-15] MEDS ORDERED: HEPARIN SOD (PORCINE) 1000 UNIT/ML IV SCH (08:00)
[2022-05-15] MEDS: LIDOCAINE/PRILOCAINE 2.5% EA CRM EXT SCH (09:09)
[2022-05-15] MEDS: HEPARIN SOD (PORCINE) 1000 UNIT/ML IV SCH (10:42)
--- NOTE | 2022-05-15 13:36 | Dialysis Progress Note ---
Date of Service May 15, 2022 Assessment & Plan (1) ESRD (end stage renal disease) on dialysis: Plan: On Tuesday in center hemodialysis via AV fistula and adherent with treatments. Chemistries and volume status currently acceptable Tolerating routine dialysis today again with slightly shorter treatment than normal since she is taking minimal p.o. and so needs less fluid removal or other dialysis; despite soft tissue edema noted on imaging, I am reluctant to push her fluid removal given soft blood pressures -Given less p.o. intake and pain medication, her blood pressure is lower than baseline and will stop hydralazine Next dialysis on May 18 or as clinical needs dictate Will consider holding ARLETTE when indicated for dialysis (not likely to be indicated soon) pending evaluation of lytic bone lesions (2) Lytic bone lesions on xray: Plan: Per primary service; osteolytic lesions confirmed on MRI; SPEP remarkable for hypogammaglobulinemia. - appreciate team efforts in avoiding gadolinium-based studies in this dialysis patient Check beta-2 microglobulin and serum free light chains with morning labs (order in) Per Ortho, patient can weight-bear as tolerated though she is having significant issues with pain control at this time Ortho recommends orthopedic oncology evaluation such as with Dr. Sow at [facility] after discharge Admission and Anticipated Discharge Date Admission Date: May 12, 2022 Subjective Patient seen on dialysis having significant pain despite morphine therapy. Also blood pressure dropped some and we took UF down from 2 L target to 1.5 L. No shortness of breath Review of Systems Review of Systems: All systems reviewed & are unremarkable except as noted in Subjective Physical Exam Constitutional: well developed, well nourished, + frail appearing (Occasional moan with tailbone pain) and cooperative; no acute distress Eyes: EOM intact bilaterally ENMT: Ears: no external ear abnormality Nose: no external nose abnormality Mouth: + dry oral mucous membranes Neck: no nuchal rigidity Respiratory: normal respiratory effort Auscultation: + diminished lung sounds Cardiovascular: Rate/Rhythm: regular rate and regular rhythm Heart Sounds: no murmur Extremities: + AV fistula (+ t/b); no edema Gastrointestinal (Abdomen): Inspection/Auscultation: normal bowel sounds Percussion/Palpation: abdomen soft; abdomen nontender Musculoskeletal: Extremities: strength 5/5 throughout Skin: no rashes, warm and dry Neurologic: Moves all extremities, no tremor, fluent and appropriate speech Psychiatric: Orientation: alert and oriented x 3 Results & Data ([facility]) Vital Signs (Past 12 Hours) Vital Signs Temp Pulse Pulse Pulse Resp BP BP 05/15/22 13:00 59 L 97/43 L 05/15/22 12:30 60 105/41 L 05/15/22 12:00 60 117/46 L 05/15/22 11:30 60 100/38 L 05/15/22 11:00 59 L 118/45 L 05/15/22 10:30 57 L 120/50 L 05/15/22 10:00 63 116/48 L 05/15/22 09:44 36.8 C 63 05/15/22 07:52 05/15/22 07:38 36.9 C 61 18 128/64 05/15/22 07:16 62 05/15/22 03:04 36.9 C 62 18 149/64 H Pulse Ox O2 Del Method O2 Flow Rate 05/15/22 13:00 05/15/22 12:30 05/15/22 12:00 05/15/22 11:30 05/15/22 11:00 05/15/22 10:30 05/15/22 10:00 05/15/22 09:44 05/15/22 07:52 Nasal Cannula 3 05/15/22 07:38 97 Room Air 05/15/22 07:16 05/15/22 03:04 94 Nasal Cannula 2 Laboratory Results 05/15/22 06:26 05/15/22 06:26
--- NOTE | 2022-05-15 17:59 | Hospitalist Progress Note ---
Date of Service May 15, 2022 Assessment & Plan (1) Fall: (2) Rhabdomyolysis: (3) Acetabular fracture: (4) Lytic bone lesions on xray: (5) Glenoid fracture of shoulder: (6) Closed sacral fracture: (7) Chronic respiratory failure with hypoxia: (8) COPD, moderate: (9) ESRD (end stage renal disease) on dialysis: (10) Diastolic CHF: Plan Patient is a 77 yr female with H/O ESRD on hemodialysis Tuesday//Tuesday, history of T2DM now diet-controlled, COPD with c hronic hypoxic respiratory failure on 3 L of chronic oxygen, PAF on amiodarone therapy off oral anticoagulation, chronic HFpEF, HTN, anemia of renal disease, tobacco abuse, secondary hyperparathyroidism, history of GI bleed secondary to duodenal ulcer who presents to ED after sustaining a fall and laying on ground for approximately 12 hours prior to arrival. Fall Rhabdomyolysis--ruled out Chronic posttraumatic deformity of the sacrum. Anterior acetabular lesions likely pathologic fractures Bilateral osteolytic lesions of the acetabulum DD: Metastatic disease Vs myeloma Possible right glenoid fracture with evidence of osteolytic lesion --Pelvic MRI:There are bilateral osteolytic lesions involving the acetabula. Top differential considerations include metastatic disease versus myeloma, and these were better assessed on yesterday's pelvic CT. There is mild marrow edema involving the anterior acetabular lesions suggesting pathologic fractures. There is chronic posttraumatic deformity of the sacrum. Arthritic change and marrow edema is seen in the hips. Subcutaneous soft tissue edema overlies both hips, right greater than left. --Head CT:There is no hemorrhage, mass effect, or evidence of acute territorial ischemia by CT criteria. --CT neck:No acute cervical spine fracture or subluxation identified. -- CT Chest:There is no acute posttraumatic intrathoracic abnormality. Cardiomegaly and emphysema. An osteolytic lesion is seen within the right glenoid with possible pathologic fracture. This could represent metastatic disease versus myeloma. Correlate for any oncological history. The remainder the bony thorax appears intact. No additional osteolytic bony lesions are identified in the thorax. Small pleural effusions, left larger than right. Mediastinal lymphadenopathy is nonspecific and similar to previous. There is a 2.5 cm right lobe thyroid nodule. Consider nonemergent thyroid ultrasound in follow-up. --Right Shoulder MRI showed Mildly T2 hyperintense, T1 hypointense lesion in the glenoid with a pathological fracture compatible with multiple lytic lesions seen on prior CTs. Chronic-appearing labral tear. Lab ordered for MM workup such as serum electrophoresis- SPEP remarkable for hypogammaglobulinemia. Check beta-2 microglobulin and serum free light chains with morning labs - Pending Anuric-unable to do urine electrophoresis Fall precautions Orthopedics on board-no urgent orthopedic Dieck surgical intervention needed Ok for weightbearing as tolerated since the osteolytic lesions in her hipsis not in the weightbearing dome of the acetabulum as per ortho She will need referral to orthopedic oncology(such as Dr. Freddy Sow at [facility] orthopedic) as an outpatient Pt had a fall today while sitting at the edge of the bed Will get right hip xray Continue PT/OT eval Fall precaution Will need placement to [facility] Chronic Troponin elevation Likely due to ESRD Denies angina symptoms Moderate fecal retention Continue bowel regimen ESRD on HD // Appreciate Nephrology Input Next HD is schedule for tomorrow as per nephrology Thyroid nodule Noted incidentally on chest CT, 2.5 cm right lobe nodule Recommend nonemergent thyroid ultrasound as outpatient Chronic hypoxic respiratory failure 2/2 COPD Chronic oxygen dependency--on 3 L at baseline Tobacco use No signs of exacerbation continue advair, prn nebs encourage smoking cessation DM II currently off tx HbA1C 5.3 PAF not on OAC 2/2 hx of GIB continue amiodarone Chronic HFpEF HTN Daily weights, strict I's and O's Continue hydralazine and lisinopril Hydralazine dose decreased due to low BP H/O Herpes simplex iridocyclitis continue eye gtts, valtex Anemia of renal disease h/h stable monitor DVT px: SQ Heparin CODE STATUS Full Code Disposition Continue PT/OT eval Will need inpatient rehab to [facility] Admission and Anticipated Discharge Date Admission Date: May 12, 2022 Subjective Patient was seen and examined at bedside Lying in bed with no acute distress Pt said that she feels sore She had a fall early while sitting at the edge of the bed She said that she hit her right hip on the ground, but did not hit her head Denies any chest pain, dyspnea, dizziness, abdominal pain Review of Systems Review of Systems: All systems reviewed & are unremarkable except as noted in Subjective Physical Exam Physical Exam: General Appearance:Moderately built and nourished, frail, no apparent distress Head: normocephalic, Atraumatic Eyes: normal inspection, EOMI Neck: supple, Trachea midline Respiratory/Chest: Decreased breath sounds, CTA, No accessory muscle use Cardiovascular: S1, S2, No murmur Abdomen/GI:Soft, Non tender, Bowel sounds present Extremities/Musculoskeletal:normal inspection, no edema tenderness both hips Neurologic/Psych:AAOX3, grossly no focal neurological deficits, LUE decreased ROM, +AV fistula Skin: normal color, warm Results & Data Results & Data ([facility]) Vital Signs (Past 12 Hours) Vital Signs Temp Pulse Pulse Pulse Pulse Resp BP 05/15/22 14:38 36.9 C 63 05/15/22 15:56 36.9 C 67 18 05/15/22 13:30 36.8 C 60 05/15/22 13:00 59 L 97/43 L 05/15/22 12:30 60 105/41 L 05/15/22 12:00 60 117/46 L 05/15/22 11:30 60 100/38 L 05/15/22 11:00 59 L 118/45 L 05/15/22 10:30 57 L 120/50 L 05/15/22 10:00 63 116/48 L 05/15/22 09:44 36.8 C 63 05/15/22 07:52 05/15/22 07:38 36.9 C 61 18 05/15/22 07:16 62 BP Pulse Ox O2 Del Method O2 Flow Rate 05/15/22 14:38 132/64 95 Nasal Cannula 05/15/22 15:56 125/52 L 96 Nasal Cannula 2 05/15/22 13:30 130/49 L 05/15/22 13:00 05/15/22 12:30 05/15/22 12:00 05/15/22 11:30 05/15/22 11:00 05/15/22 10:30 05/15/22 10:00 05/15/22 09:44 05/15/22 07:52 Nasal Cannula 3 05/15/22 07:38 128/64 97 Room Air 05/15/22 07:16
--- NOTE | 2022-05-15 18:38 | XRay Report ---
XR hip RT min 2V HISTORY: 77 years-old Female s/p fall acute right hip pain status post fall COMPARISON: MR pelvis an CT abdomen pelvis 05/12/2022 TECHNIQUE: 2 views the right hip FINDINGS: No acute fracture or dislocation. Osteoarthritis of the right hip redemonstrated. Sacrum is obscured by rectal stool. Ill-defined lucent lesions of the right acetabulum again seen. IMPRESSION: 1. No acute fracture or dislocation identified. 2. Suspicious lucent lesions of the acetabular redemonstrated, better seen on the 05/12/2022 exam's. ACT 112: Negative or not required by law. The above report was generated using voice recognition software. It may contain grammatical, syntax o r spelling errors. Electronically signed by: Elder Osborn M.D. 05/15/2022 6:37 PM
[2022-05-15] MEDS: LIDOCAINE 5% 1 PATCH TD SCH (19:18)
[2022-05-15] MEDS: FLUTICASONE PROPIONATE NA SPR 16 GM BTL SCH (19:54)
[2022-05-16] MEDS: HEPARIN SOD 5,000 UNIT/0.5 ML VIAL SQ SCH ×3 (04:33→20:33)
[2022-05-16 07:34] LABS: Hematocrit (blood only) 31.5 % (37.0-47.0); Hemoglobin 10.5 g/dl (12.0-16.0); Mean Corpuscular Hemoglobin 39.2 pg (25.0-34.0); Mean Corpuscular Hgb Conc 33.3 g/dL (32.0-36.0); Mean Corpuscular Volume 117.5 fL (80.0-100.0); Mean Platelet Volume 10.6 fL (9.4-12.4); Platelet Count 157 K/uL (130-400); RDW Coefficient of Variation 13.6 % (11.5-14.5); RDW Standard Deviation 59.6 fL (36.4-46.3); Red Blood Count 2.68 M/uL (4.20-5.40); White Blood Count 8.76 K/ul (4.8-10.8)
[2022-05-16 07:51] LABS: BUN Creatinine Ratio 4.5 (10-20); Calcium 9.1 mg/dl (8.5-10.1); Creatinine Clr Calc Pharmacy 7.3 ml/min; Est GFR (African American) 6.9 ml/min; Phosphorus 4.3 mg/dl (2.5-4.9); Potassium 4.5 mmol/L (3.5-5.1)
[2022-05-16] MEDS: SEVELAMER HCL 800 MG TABLET PO SCH ×3 (08:16→17:10)
[2022-05-16] MEDS: FLUTICASONE/VILANTEROL 100/25MCG 14 PUFFS/INHALER INH SCH (08:16)
[2022-05-16] MEDS: lisinopril 40 MG TAB PO SCH (08:17)
[2022-05-16] MEDS: valACYclovir HCL 500 MG TABLET PO SCH (08:17)
[2022-05-16] MEDS: VITAMIN B COMPLEX TAB PO SCH (08:18)
[2022-05-16] MEDS: LIDOCAINE 5% 1 PATCH TD SCH (08:18)
[2022-05-16] MEDS: ACETAMINOPHEN 325 MG TAB PO PRN ×2 (08:22→13:59)
[2022-05-16] MEDS: DOCUSATE SODIUM/SENNA 50/8.6MG TAB PO SCH ×2 (08:22→20:35)
--- NOTE | 2022-05-16 09:02 | Hospitalist Progress Note ---
Date of Service May 16, 2022 Assessment & Plan (1) Fall: (2) Rhabdomyolysis: (3) Acetabular fracture: (4) Lytic bone lesions on xray: (5) Glenoid fracture of shoulder: (6) Closed sacral fracture: (7) Chronic respiratory failure with hypoxia: (8) COPD, moderate: (9) ESRD (end stage renal disease) on dialysis: (10) Diastolic CHF: Plan 77 yr female with H/O ESRD on hemodialysis Tuesday//Tuesday, history of T2DM now diet-controlled, COPD with chronic hypoxic respiratory failure on 3 L of chronic oxygen, PAF on amiodarone therapy off oral anticoagulation, chronic HFpEF, HTN, anemia of renal disease, tobacco abuse, secondary hyperparathyroidism, history of GI bleed secondary to duodenal ulcer who presents to ED after sustaining a fall and laying on ground for approximately 12 hours prior to arrival. Fall Rhabdomyolysis--ruled out Chronic posttraumatic deformity of the sacrum. Anterior acetabular lesions likely pathologic fractures Bilateral osteolytic lesions of the acetabulum DD: Metastatic disease Vs myeloma Possible right glenoid fracture with evidence of osteolytic lesion --Pelvic MRI:There are bilateral osteolytic lesions involving the acetabula. Top differential considerations include metastatic disease versus myeloma, and these were better assessed on yesterday's pelvic CT. There is mild marrow edema involving the anterior acetabular lesions suggesting pathologic fractures. There is chronic posttraumatic deformity of the sacrum. Arthritic change and marrow edema is seen in the hips. Subcutaneous soft tissue edema overlies both hips, right greater than left. --Head CT:There is no hemorrhage, mass effect, or evidence of acute territorial ischemia by CT criteria. --CT neck:No acute cervical spine fracture or subluxation identified. -- CT Chest:There is no acute posttraumatic intrathoracic abnormality. Cardiomegaly and emphysema. An osteolytic lesion is seen within the right glenoid with possible pathologic fracture. This could represent metastatic disease versus myeloma. Correlate for any oncological history. The remainder the bony thorax appears intact. No additional osteolytic bony lesions are identified in the thorax. Small pleural effusions, left larger than right. Mediastinal lymphadenopathy is nonspecific and similar to previous. There is a 2.5 cm right lobe thyroid nodule. Consider nonemergent thyroid ultrasound in follow-up. --Right Shoulder MRI showed Mildly T2 hyperintense, T1 hypointense lesion in the glenoid with a pathological fracture compatible with multiple lytic lesions seen on prior CTs. Chronic-appearing labral tear. Lab ordered for MM workup such as serum electrophoresis- SPEP remarkable for hypogammaglobulinemia. Discussed with lab abt other pending lab report Anuric-unable to do urine electrophoresis Fall precautions Orthopedics evaluations noted. No urgent orthopedic/ surgical intervention needed Ok for weightbearing as tolerated since the osteolytic lesions in her hipsis not in the weightbearing dome of the acetabulum as per ortho She will need referral to orthopedic oncology(such as Dr. Freddy Sow at [facility] orthopedic) as an outpatient prior to discharge Pt had a fall on 05/15/22 while sitting at the edge of the bed Hip XR did not show any acute fractures but noted luscent lesions seen earlier Patient advised to call fall help with movement. RN notified as well Continue PT/OT wesley PIERCE working on placement Chronic Troponin elevation Likely due to ESRD Denies angina symptoms Constipation Moderate fecal retention on CT Continue bowel regimen. RN notified ESRD on HD / Appreciate Nephrology Input Continue HD per Nephrology Thyroid nodule Noted incidentally on chest CT, 2.5 cm right lobe nodule Recommend nonemergent thyroid ultrasound as outpatient Chronic hypoxic respiratory failure 2/2 COPD Chronic oxygen dependency--on 3 L at baseline Tobacco use No signs of exacerbation Continue advair, prn nebs Encourage smoking cessation DM II Currently off treatment HbA1C 5.3 PAF Not on OAC 2/2 hx of GIB Continue amiodarone Chronic HFpEF HTN Daily weights, strict I's and O's Continue hydralazine and lisinopril Hydralazine dose decreased due to low BP H/O Herpes simplex iridocyclitis Continue eye gtts, valtex Anemia of renal disease Hb stable DVT px: SQ Heparin CODE STATUS Full Code Disposition Continue PT/OT wesley PIERCE working on placement Admission and Anticipated Discharge Date Admission Date: May 12, 2022 Subjective Patient seen and examined. Reports low back pain especially around the tailbone that has been unchanged Reports right toe pain that has been ongoing for a long time Denied any cough, chest pain. Reports chronic shortness of breath with exertion and chronic oxygen use Denies any headache, dizziness Denied any nausea, vomiting, abdominal pain diarrhea. Reports some constipation. Had a fall yesterday while trying to from bed to chair, did not hit head or lose consciousness. Described this as losing her balance. Hip x-ray at the time did not show any acute fracture but noted lucencies seen previously Physical Exam Constitutional: + well hydrated; no acute distress Elderly woman Eyes: PERRL, conjunctivae normal, anicteric sclerae ENMT: external ear and nose normal, oropharynx normal Respiratory: normal respiratory effort; no respiratory distress Auscultation: + diminished lung sounds Cardiovascular: Rate/Rhythm: regular rate and regular rhythm S1 S2 Gastrointestinal (Abdomen): normal bowel sounds, soft, nontender, no hepatosplenomegaly Musculoskeletal: No edema of lower extremities No tenderness noted on foot examined Neurologic: PERRL, EOMI, accommodation nl, no face palsy, no dysarthria Psychiatric: A+Ox3, euthymic affect Results & Data Results & Data ([facility]) Vital Signs (Past 12 Hours) Vital Signs Temp Pulse Pulse Resp BP Pulse Ox O2 Del Method 05/16/22 07:31 67 05/16/22 06:33 37 C 64 18 116/57 L 95 Nasal Cannula 05/16/22 03:30 37 C 66 20 141/74 H 93 Room Air 05/15/22 23:52 Nasal Cannula 05/15/22 23:52 64 05/15/22 23:11 37.0 C 63 18 96/51 L 99 Room Air O2 Flow Rate 05/16/22 07:31 05/16/22 06:33 2 05/16/22 03:30 05/15/22 23:52 3 05/15/22 23:52 05/15/22 23:11 Laboratory Results Abnormal lab results 05/15/22 05/16/22 05/16/22 Range/Units 14:43 07:10 07:10 RBC 2.68 L (4.20-5.40) M/uL Hgb 10.5 L (12.0-16.0) g/dl Hct 31.5 L (37.0-47.0) % MCV 117.5 H (80.0-100.0) fL MCH 39.2 H (25.0-34.0) pg RDW Std Deviation 59.6 H (36.4-46.3) fL BUN 28 H (6-23) mg/dl Creatinine 6.27 H* D (0.6-1.2) mg/dl BUN/Creatinine Ratio 4.5 L (10-20) POC Glucose 110 H (70-99) mg/dl
[2022-05-16] MEDS: FLUTICASONE PROPIONATE NA SPR 16 GM BTL SCH (20:32)
[2022-05-16] MEDS ORDERED: bisacodyL 10 MG SUPP PR STA (21:49)
[2022-05-16] MEDS ORDERED: ALUMINUM/MAGNESIUM/SIMETH (MAALOX MAX) 30 ML UDC PO STA (21:49)
[2022-05-17] MEDS: HEPARIN SOD 5,000 UNIT/0.5 ML VIAL SQ SCH ×2 (06:28→14:00)
[2022-05-17] MEDS: valACYclovir HCL 500 MG TABLET PO SCH (08:12)
[2022-05-17] MEDS: lisinopril 40 MG TAB PO SCH (08:12)
[2022-05-17] MEDS: SEVELAMER HCL 800 MG TABLET PO SCH ×2 (08:12→12:00)
[2022-05-17] MEDS: VITAMIN B COMPLEX TAB PO SCH (08:12)
[2022-05-17] MEDS: FLUTICASONE/VILANTEROL 100/25MCG 14 PUFFS/INHALER INH SCH (08:13)
[2022-05-17] MEDS: LIDOCAINE 5% 1 PATCH TD SCH (08:13)
[2022-05-17] MEDS: DOCUSATE SODIUM/SENNA 50/8.6MG TAB PO SCH (08:15)
[2022-05-17] MEDS ORDERED: SODIUM CHLORIDE 0.9% 1000ML 1,000 ML IV PRN (10:16)
[2022-05-17] MEDS ORDERED: EPOETIN ALFA 4,000 UNIT/ML VIAL IV ONE (10:16)
--- NOTE | 2022-05-17 10:37 | Nephrology Progress Note ---
Date of Service May 17, 2022 Assessment & Plan Admission and Anticipated Discharge Date Admission Date: May 12, 2022 Subjective Assessment & Plan (1) ESRD (end stage renal disease) on dialysis: Plan: Will do dialysis today as she is going to Rehab today where she will get HD on MWF schedule. Nofluid overload and no Lytes issues. 3.5 hr 2k a and 2 kilo off. (2) Lytic bone lesions on xray: Plan: Per primary service; osteolytic lesions confirmed on MRI; SPEP remarkable for hypogammaglobulinemia. - appreciate team efforts in avoiding gadolinium-based studies in this dialysis patient Check beta-2 microglobulin and serum free light chains with morning labs (order in) Per Ortho, patient can weight-bear as tolerated though she is having significant issues with pain control at this time Ortho recommends orthopedic oncology evaluation such as with Dr. Sow at [facility] after discharge Subjective Still has significant pain despite morphine therapy. No shortness of breath Review of Systems Review of Systems: All systems reviewed & are unremarkable except as noted in Subjective Physical Exam Constitutional: well developed, well nourished, + frail appearing (Occasional moan with tailbone pain) and cooperative; no acute distress Eyes: EOM intact bilaterally ENMT: Ears: no external ear abnormality Nose: no external nose abnormality Mouth: + dry oral mucous membranes Neck: no nuchal rigidity Respiratory:L normal respiratory effort Auscultation: + diminished lung sounds Cardiovascular: Rate/Rhythm: regular rate and regular rhythm Heart Sounds: no murmur Extremities: + AV fistula (+ t/b); no edema Gastrointestinal (Abdomen): Inspection/Auscultation: normal bowel sounds Percussion/Palpation: abdomen soft; abdomen nontender Musculoskeletal: Extremities: strength 5/5 throughout Skin: no rashes, warm and dry Neurologic: Moves all extremities, no tremor, fluent and appropriate speech Psychiatric: Orientation: alert and oriented x 3 Results & Data ([facility]) Vital Signs (Past 12 Hours) Vital Signs Temp Pulse Pulse Resp BP Pulse Ox O2 Del Method 05/17/22 07:38 36.7 C 83 18 114/62 96 Nasal Cannula 05/17/22 07:35 55 L 05/17/22 03:55 36.8 C 51 L 16 109/55 L 100 Nasal Cannula 05/16/22 23:18 36.9 C 52 L 18 108/59 L 99 Nasal Cannula O2 Flow Rate 05/17/22 07:38 3 05/17/22 07:35 05/17/22 03:55 2 05/16/22 23:18 2
--- NOTE | 2022-05-17 12:27 | Discharge Summary ---
Discharge Summary Date of Service May 17, 2022 Notes For Next Care Provider Needs to follow up with Orthopedic oncology Followup outstanding labs pending such as Free serum light chain (kappa, lambda) Follow up recovery at rehab Medication Changes From Visit Hydralazine stopped for now due to hypotension Monitor Admission HPI Per Admitting Provider This is a 77-year-old female who has significant past medical history of end- stage renal disease on hemodialysis Tuesday//Tuesday, history of T2DM now diet-controlled, COPD with chronic hypoxic respiratory failure on 3 L of chronic oxygen, PAF on amiodarone therapy off oral anticoagulation, chronic HFpEF, HTN, anemia of renal disease, tobacco abuse, secondary hyperparathyroidism, history of GI bleed secondary to duodenal ulcer who presents to ED after sustaining a fall and laying on ground for approximately 12 hours prior to arrival. Patient currently lives alone and typically ambulates with a walker. She had a fall about 2 days ago where she struck the back of her head. Last evening she was walking onto her enclosed porch when her legs just gave out and she fell on the ground. She had bilateral groin and sacral pain and therefore was unable to get up. She laid on the ground for approximately 12 hours yelling for help. This morning around 5 AM her neighbor heard her and EMS was summoned. She was not hypothermic although she was hypoxic on EMS arrival. She complained of being nauseated overnight. She has chronic shortness of breath on oxygen but feels this is baseline. She also has a chronic clear productive cough. She denies any fever, chills, sweats, lightheadedness, dizziness, chest pain, vomiting, hematochezia, abdominal pain, diarrhea or melena. She is anuric in setting of hemodialysis. She last had hemodialysis yesterday and tolerated treatment well. Admission Exam Per Admitting Provider Constitutional: Fraile, elderly, F, lying in bed, vitals as above, NAD, pleasant, conversing easily Head: Normocephalic, Atraumatic Eyes: PERRL, conjunctivae normal, anicteric sclerae ENMT: external ear and nose normal, oropharynx normal dry membranes Neck: trachea midline, no thyromegaly normal visual inspection Respiratory: on 3L of O2 via NC, normal respiratory effort, lungs clear to auscultation, no wheeze, rales, rhonchi. Normal insp/exp effort, no accessory muscle use Cardiovascular: RRR, no murmur, no edema Vessels: no JVD or carotid bruit , LUE AV fistula Chest: normal inspection of chest Abdomen: normal bowel sounds, soft, nontender, no hepatosplenomegaly Musculoskeletal: no cyanosis or clubbing, ecchymosis to Dorsal aspect of L hand, AROM t b/l upper ext, lower not tested in setting of acetabular fx Skin: no rashes, warm and dry normal turgor Neurologic: PERRL, EOMI, accommodation nl, no face palsy, no dysarthria CN's II-XI intact bilaterally and moves all extremities Psychiatric: A+Ox3, euthymic affect Lymphatic: no cervical or axillary lymphadenopathy : deferred Principal Dx & Hospital Course #1 = Principal Diagnosis (1) Fall: (2) Acetabular fracture: (3) Lytic bone lesions on xray: (4) Glenoid fracture of shoulder: (5) Closed sacral fracture: (6) Chronic respiratory failure with hypoxia: (7) COPD, moderate: (8) ESRD (end stage renal disease) on dialysis: (9) Diastolic CHF: Plan 77 yr female with H/O ESRD on hemodialysis Tuesday//Tuesday, history of T2DM now diet-controlled, COPD with chronic hypoxic respiratory failure on 3 L of chronic oxygen, PAF on amiodarone therapy off oral anticoagulation, chronic HFpEF, HTN, anemia of renal disease, tobacco abuse, secondary hyperparathyroidism, history of GI bleed secondary to duodenal ulcer who presents to ED after sustaining a fall and laying on ground for approximately 12 hours prior to arrival. Fall Rhabdomyolysis--ruled out Chronic posttraumatic deformity of the sacrum. Anterior acetabular lesions likely pathologic fractures Bilateral osteolytic lesions of the acetabulum DD: Metastatic disease Vs myeloma Possible right glenoid fracture with evidence of osteolytic lesion --Pelvic MRI:There are bilateral osteolytic lesions involving the acetabula. Top differential considerations include metastatic disease versus myeloma, and these were better assessed on yesterday's pelvic CT. There is mild marrow edema invo lving the anterior acetabular lesions suggesting pathologic fractures. There is chronic posttraumatic deformity of the sacrum. Arthritic change and marrow edema is seen in the hips. Subcutaneous soft tissue edema overlies both hips, right greater than left. --Head CT:There is no hemorrhage, mass effect, or evidence of acute territorial ischemia by CT criteria. --CT neck:No acute cervical spine fracture or subluxation identified. -- CT Chest:There is no acute posttraumatic intrathoracic abnormality. Cardiomegaly and emphysema. An osteolytic lesion is seen within the right glenoid with possible pathologic fracture. This could represent metastatic disease versus myeloma. Correlate for any oncological history. The remainder the bony thorax appears intact. No additional osteolytic bony lesions are identified in the thorax. Small pleural effusions, left larger than right. Mediastinal lymphadenopathy is nonspecific and similar to previous. There is a 2.5 cm right lobe thyroid nodule. Consider nonemergent thyroid ultrasound in follow-up. --Right Shoulder MRI showed Mildly T2 hyperintense, T1 hypointense lesion in the glenoid with a pathological fracture compatible with multiple lytic lesions seen on prior CTs. Chronic-appearing labral tear. Lab ordered for MM workup such as serum electrophoresis- SPEP remarkable for hypogammaglobulinemia. Anuric-unable to do urine electrophoresis Serum free light chains pending Fall precautions Orthopedics evaluated. No urgent orthopedic/ surgical intervention needed Ok for weightbearing as tolerated since the osteolytic lesions in her hipsis not in the weightbearing dome of the acetabulum as per ortho She will need referral to orthopedic oncology(such as Dr. Freddy Sow at [facility]) as an outpatient Our nurse coordinator notified PCP's office about this refrral Pt had a fall on 05/15/22 while sitting at the edge of the bed Hip XR did not show any acute fractures but noted luscent lesions seen earlier Educated again on fall precautions Chronic Troponin elevation Likely due to ESRD Denies angina symptoms Constipation Moderate fecal retention on CT Had some bowel movement today Continue bowel regimen at rehab ESRD on HD // Continue HD per Nephrology Thyroid nodule Noted incidentally on chest CT, 2.5 cm right lobe nodule Recommend nonemergent thyroid ultrasound as outpatient Chronic hypoxic respiratory failure 2/2 COPD Chronic oxygen dependency--on 3 L at baseline Tobacco use No signs of exacerbation Continue advair, prn nebs Encouraged smoking cessation DM II Currently off treatment HbA1C 5.3 PAF Not on OAC 2/2 hx of GIB Continue amiodarone Chronic HFpEF Hypertension Daily weights, strict I's and O's Continue lisinopril Hydralazine stopped for now due to hypotension BP currently stable H/O Herpes simplex iridocyclitis Continue eye gtts, valtex Anemia of renal disease Hb stable Discharged to [facility] for rehab Discharge Exam Constitutional + well hydrated; no acute distress Eyes PERRL, conjunctivae normal, anicteric sclerae ENMT external ear and nose normal, oropharynx normal Respiratory normal respiratory effort; no respiratory distress Auscultation: + diminished lung sounds Cardiovascular Rate/Rhythm: regular rate and regular rhythm S1 S2 Gastrointestinal (Abdomen) normal bowel sounds, soft, nontender, no hepatosplenomegaly Musculoskeletal No pedal edema Neurologic PERRL, EOMI, accommodation nl, no face palsy, no dysarthria Psychiatric A+Ox3, euthymic affect Updated Medication List Medication Instructions Recorded Confirmed Type ergocalciferol (vitamin D2) 1,250 50,000 unit PO MONTHLY 09/26/18 05/12/22 History mcg (50,000 unit) capsule ipratropium 0.5 mg-albuterol 3 mg 3 ml inhalation QID PRN Shortness 09/26/18 05/12/22 History (2.5 mg base)/3 mL nebulization Of Breath soln vitamin B complex-vitamin C-folic 1 tab PO QAM 09/26/18 05/12/22 History acid 0.8 mg tablet (Arabella-Tika) fluticasone propionate 50 2 spray intranasal HS 01/18/19 05/12/22 History mcg/actuation nasal spray,suspension sevelamer carbonate 800 mg tablet 2,400 mg PO TIDM 01/18/19 05/12/22 History albuterol sulfate 90 mcg/actuation 2 puff inhalation Q4H PRN Wheezing 04/05/19 05/12/22 History aerosol inhaler acetaminophen 325 mg tablet 650 mg PO Q6H PRN Pain 04/14/21 05/12/22 History (Tylenol) camphor-menthol 0.5 %-0.5 % lotion 1 applic topical DIRECTED PRN 04/14/21 05/12/22 History Itching epoetin gabriel 10,000 unit/mL 0 unit IV DIRECTED 04/14/21 05/12/22 History injection solution (Procrit) lidocaine-prilocaine 2.5 %-2.5 % 1 applic topical DIRECTED PRN 04/14/21 05/12/22 History topical cream PRIOR TO DIALYSIS lisinopril 40 mg tablet 40 mg PO QAM 04/14/21 05/12/22 History loperamide 2 mg capsule (Imodium 2 mg PO QID PRN Diarrhea 04/14/21 05/12/22 History A-D) valacyclovir 1 gram tablet 1,000 mg PO QAM 04/14/21 05/12/22 History fluorometholone 0.1 % eye 1 drp OPL QAM 01/25/22 05/12/22 History drops,suspension fluticasone 250 mcg-salmeterol 50 1 inh inhalation BID 01/25/22 05/12/22 History mcg/dose blistr powdr for inhalation (Advair Diskus) amiodarone 200 mg tablet 200 mg PO DAILY 30 days #60 tabs 05/12/22 05/12/22 Rx docusate sodium 100 mg capsule 100 mg PO BID #60 caps 05/17/22 05/12/22 Rx (Colace) polyethylene glycol 3350 17 gram 17 g PO DAILY PRN constipation #20 05/17/22 Rx oral powder packet (Miralax) ea Hospital Stay Data Consultations 05/12/22 09:33 ED Decision to Admit Stat 05/12/22 09:43 Consult Nephrology Routine 05/12/22 10:30 Consult Orthopedic Surgery Routine Diagnostic Imagining Performed 05/12/22 06:42 CT abd pelvis wo con Stat CT cervical spine wo con Stat CT chest diagnostic wo con Stat CT head/brain wo con Stat 05/12/22 17:01 MR pelvis wo con Routine 05/14/22 08:02 MR shoulder RT wo con Routine Pending Results Patient Have Any Pending Studies at Discharge: Yes Discharge Instructions Given to Patient (Per Discharging Provider) Mrs Velasco. You came to the hospital after a fall. Evaluation noted osteolytic lesions in the bone on x-rays and CT scans. There are also possible pathological fracture of the right glenoid [shoulder] and inferior sacrum. You were evaluated by orthopedic surgeon who does not recommend any procedure at this time. These lesions are concerning for possible diseases such as multiple myeloma or metastatic tumor/cancer. It is very important that you follow-up with your primary doctor who will make referral to orthopedic oncologist. His office has been notified. You are being discharged to [facility] for rehab. Your hydralazine was discontinued for now due to low blood pressure It was a pleasure taking care of you. Total Time Total Time Spent Total Time Spent (In Minutes): 60 Total Time Includes: Examination of the Patient, Discharge Planning and Medication Reconciliation
[2022-05-17 12:53] LABS: Calcium 9.5 mg/dl (8.5-10.1); Potassium 4.7 mmol/L (3.5-5.1)
[2022-05-17 13:08] LABS: BUN Creatinine Ratio 5.4 (10-20); Creatinine Clr Calc Pharmacy 4.9 ml/min; Est GFR (African American) 4.3 ml/min; Est GFR (Non-African American) 3.7 ml/min
[2022-05-18 11:27] LABS: Beta-2-Microglobulin 48.5 mg/L (< OR = 2.51); Free Kappa 183.4 mg/L (3.3-19.4); Free Kappa/Lambda Ratio 1.19 (0.26-1.65); Free Lambda 153.5 mg/L (5.7-26.3)
== END 2022-05-17 16:52 | DRG 564 ==
LOC: ED 06:03 → SUATTDRO 09:43 → 2S 09:43 → 2N 05-13 19:39

== ENCOUNTER 2023-04-01 16:40 | Inpatient (IN) ==
--- NOTE | 2023-04-01 16:57 | Emergency Department Note ---
Impression & Plan Shortness of breath, Non-ST elevation NH (NSTEMI), ESRD (end stage renal disease), COVID-19 ED Provider Note HISTORY OF PRESENT ILLNESS: Patient is a 78-year-old female presenting with progressively worsening shortness of breath. Patient tested positive for COVID-19 four days ago. Reports that today she felt like she could not catch her breath. Denies any chest pain. Reports she has had a nonproductive cough. Denies any measured fevers at home, but reports she has been chilled. She gets dialysis on Tuesday//Tuesday and reports that she did attend her dialysis session yesterday. Denies any abdominal pain, nausea or vomiting. She is not on any anticoagulation. Patient is on 3 L nasal cannula baseline. On EMS arrival, she reportedly had kinked oxygen tubing so unclear how much oxygen she was getting. ROS: as above PHYSICAL EXAM: Constitutional: Patient appears in no acute distress. HENT: Head: Normocephalic and atraumatic. Eyes: EOMI, PERRL Mouth/Throat: Mucous membranes moist. Neck: Trachea midline. Neck supple. Cardiovascular: RRR, No murmurs, rubs or gallops. Intact distal pulses. Pulmonary/Chest: No respiratory distress. Breath sounds clear and equal bilaterally. Abdominal: Abdomen soft, no tenderness, rebound or guarding. Musculoskeletal: No edema, tenderness or deformity noted. Skin: Warm and dry. No rash, erythema, pallor or cyanosis Psychiatric: Appropriate mood and affect for situation. Neurological: Alert and keenly responsive. CN II-XII grossly intact, moving all extremities equally and fully. MDM: - Vitals signs stable - History obtained via patient. Patient presents with for slowly worsening shortness of breath. Patient tested positive for COVID-19 4 days ago. Reports she feels like she cannot catch her breath. Denies any chest pain. Has had a nonproductive cough. Reports she has been chilled at home but denies any measured fevers. She is a dialysis patient reports that she did attend her session yesterday. Denies abdominal pain, nausea or vomiting. She wears 3 L nasal cannula at baseline. - Chronic conditions affecting care: DM-2; HTN; HLD; ESRD; Afib - Differential diagnoses include, but are not limited to: Congestive heart failure; acute coronary syndrome; COPD/asthma exacerbation; pulmonary edema; pulmonary embolism; pneumonia; pneumothorax; viral syndrome - Order placed for continuous cardiac monitoring. At this time, monitor showed rate of 57 bpm with normal sinus rhythm, per my interpretation. - External medical records reviewed. EMS run sheet was reviewed. Patient was vitally stable and route. - EKG interpreted by myself showed normal sinus rhythm. Rate 60 bpm. QTc 476. No acute ischemic changes. - Laboratory workup interpreted by myself showed leukopenia (WBC 3.49); stable electrolytes; ESRD; elevated troponin (31.2); elevated BNP (430) - VBG WNL - Viral panel positive for COVID - CXR negative for pneumonia, per my interpretation - Repeat troponin 31 - Discussed results with patient. She reports feeling generally unwell and is concerned about going home. - Discussion was had with caregiver services home about patient's case and need for admission - Hospitalist, Dr. Thakur, consulted for admission - [facility] ASSESSMENT AND PLAN: Diagnosis: shortness of breath; NSTEMI; ESRD; COVID Plan: admit Past Med/Surg History Medical History Paroxysmal atrial fibrillation Chronic respiratory failure with hypoxia, on home O2 therapy ESRD (end stage renal disease) on dialysis follows with Dr. Reed; Hillary Corley Sat - [facility] (since 02/2013) On home oxygen therapy 3 LPM cont History of colon polyps Tobacco use History of GI bleed GI bleed hx History of Helicobacter pylori infection HTN (hypertension) Diastolic CHF Moderate mitral regurgitation "moderate to severe on 12/2015 echo" On 01/13/16 15:17 Blanca Chan wrote "echo 06/2015 - calcified mitral valve, moderate MR" Renal cyst H/O cardiovascular stress test "05/2013 - negative for ischemia" Pancreatic cyst AV fistula LUE COPD, moderate On 08/19/15 09:47 Mare Whyte wrote "2L O2 at home" Anemia of chronic disease Obesity Dyslipidemia Psoriasis Osteoarthritis Adrenal adenoma DM type 2 (diabetes mellitus, type 2) IDDM Surgical History History of surgery AVF creation History of intestinal surgery H/O nasal polypectomy History of cataract surgery H/O colonoscopy "2005, hyperplastic polyps repeat in 10 years " S/P appendectomy "1971" S/P cholecystectomy "1971" S/P left oophorectomy "1981" S/P ASH (total abdominal hysterectomy) "For Fibroids " Family History Father Myocardial infarction, Onset Age: 64 Mother , 87 Alzheimer disease Other No family history of adverse response to anesthesia Social History Smoking Status: Current some day smoker Tobacco Type: Cigarettes Cigarettes Per Day: 3; Second Hand Exposure: No; Do You Dip or Chew Tobacco: No; Hx Alcohol Use: No Hx Substance Use: No Preferred Language: Malay Communication Ability: Effective Site Acquisition Specialist 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 Beliefs That Will Affect Care: None marital status: / Current Living Situation: Alone current occupational status: retired Feels Safe at Home: Yes Assistive Devices: Oxygen - Continuous and Walker Allergies Allergies Allergy/AdvReac Type Severity Reaction Status Date / Time chlorhexidine Allergy Intermediate ITCHING Verified 04/01/23 17:29 Home Meds Home Medications Medication Instructions Recorded Confirmed ipratropium 0.5 mg-albuterol 3 mg 3 ml inhalation QID PRN Shortness 09/26/18 04/01/23 (2.5 mg base)/3 mL nebulization Of Breath soln vitamin B complex-vitamin C-folic 1 tab PO QAM 09/26/18 04/01/23 acid 0.8 mg tablet (Arabella-Tika) fluticasone propionate 50 2 spray intranasal HS 01/18/19 04/01/23 mcg/actuation nasal spray,suspension sevelamer carbonate 800 mg tablet 1,600 mg PO TIDM 01/18/19 04/01/23 albuterol sulfate 90 mcg/actuation 2 puff inhalation Q4H PRN Wheezing 04/05/19 04/01/23 aerosol inhaler acetaminophen 325 mg tablet 650 mg PO Q6H PRN Pain 04/14/21 04/01/23 (Tylenol) camphor-menthol 0.5 %-0.5 % lotion 1 applic topical DIRECTED PRN 04/14/21 04/01/23 Itching epoetin gabriel 10,000 unit/mL 0 unit IV DIRECTED 04/14/21 04/01/23 injection solution (Procrit) lidocaine-prilocaine 2.5 %-2.5 % 1 applic topical DIRECTED PRN 04/14/21 04/01/23 topical cream PRIOR TO DIALYSIS lisinopril 40 mg tablet 40 mg PO 4XWK 04/14/21 04/01/23 loperamide 2 mg capsule (Imodium 2 mg PO QID PRN Diarrhea 04/14/21 04/01/23 A-D) valacyclovir 1 gram tablet 1,000 mg PO QAM 04/14/21 04/01/23 fluorometholone 0.1 % eye 1 drp OPL QAM 01/25/22 04/01/23 drops,suspension docusate sodium 100 mg capsule 100 mg PO BID PRN Constipation 04/01/23 04/01/23 (Colace) fluticasone furoate 200 1 inh inhalation DAILY 04/01/23 04/01/23 mcg-vilanterol 25 mcg/dose inhalation powder (Breo Ellipta) hydralazine 25 mg tablet 37.5 mg PO BID 04/01/23 04/01/23 Previous Rx's Medication Instructions Recorded amiodarone 200 mg tablet 200 mg PO DAILY 30 days #60 tabs 05/12/22 Results & Data (ED) Vital Signs Vital Signs - 24 hr 04/01/23 16:54 04/01/23 17:00 04/01/23 17:00 Pulse Rate 65 63 63 Pulse Rate [Apical] Pulse Rhythm Regular Respiratory Rate 20 20 Blood Pressure 139/55 L Blood Pressure [Right Arm] Blood Pressure Mean 83 Blood Pressure Mean [Right Arm] Pulse Oximetry 94 96 Oxygen Delivery Method Nasal Cannula Nasal Cannula Oxygen Flow Rate 3 3 Sepsis Recent Fever Within 48 Hours No Sepsis New/Unexplained Change in Mental Status N/A Sepsis Action Taken by Nursing No Action Required 04/01/23 17:05 04/01/23 19:59 04/01/23 20:55 Pulse Rate 57 L Pulse Rate [Apical] 60 Pulse Rhythm Respiratory Rate 21 Blood Pressure Blood Pressure [Right Arm] 128/52 L Blood Pressure Mean Blood Pressure Mean [Right Arm] 77 Pulse Oximetry 93 99 Oxygen Delivery Method Nasal Cannula Nasal Cannula Oxygen Flow Rate 3 3 Sepsis Recent Fever Within 48 Hours Sepsis New/Unexplained Change in Mental Status Sepsis Action Taken by Nursing Laboratory Data 04/01/23 17:06 04/01/23 17:06 Lab Results 04/01/23 04/01/23 04/01/23 Range/Units 17:06 17:30 18:59 WBC 3.49 L (4.8-10.8) K/ul RBC 2.55 L (4.20-5.40) M/uL Hgb 10.5 L (12.0-16.0) g/dl Hct 31.1 L (37.0-47.0) % MCV 122.0 H (80.0-100.0) fL MCH 41.2 H (25.0-34.0) pg MCHC 33.8 (32.0-36.0) g/dL RDW Std Deviation 56.3 H (36.4-46.3) fL RDW Coeff of Fior 12.5 (11.5-14.5) % Plt Count 119 L (130-400) K/uL MPV 11.4 (9.4-12.4) fL Immature Gran % (Auto) 0.6 % Neut % (Auto) 75.3 % Lymph % (Auto) 11.5 % [place] % (Auto) 11.7 % Eos % (Auto) 0.6 % Baso % (Auto) 0.3 % Neut # (Auto) 2.63 (1.40-6.50) K/uL Lymph # (Auto) 0.40 L (1.20-3.40) K/uL [place] # (Auto) 0.41 (0.11-0.59) K/uL Eos # (Auto) 0.02 (0.00-0.50) K/uL Baso # (Auto) 0.01 (0.00-0.20) K/uL Immature Gran # (Auto) 0.02 (0.01-0.20) K/uL Toxic Vacuolation 1+ Polychromasia 1+ Tear Drop Cells 1+ VBG pH 7.44 H (7.36-7.41) VBG pCO2 46 (38-50) mmHg VBG pO2 28 mmHg VBG HCO3 31 mmol/L VBG O2 Saturation < 60.0 % VBG Base Excess 6.1 mEq/L Sodium 142 (136-145) mmol/L Potassium 3.5 (3.5-5.1) mmol/L Chloride 99 (98-107) mmol/L Carbon Dioxide 31 (21-32) mmol/L Anion Gap 12 H (3-11) BUN 23 (6-23) mg/dl Creatinine 6.56 H* (0.6-1.2) mg/dl Est Cr Clr Drug Dosing 7.9 ml/min Est GFR ( Amer) 6.5 ml/min Est GFR (Non-Af Amer) 5.6 ml/min BUN/Creatinine Ratio 3.5 L (10-20) Glucose 107 H (70-99(Fasting)) mg/dl Calcium 8.7 (8.6-10.3) mg/dl Magnesium 1.9 (1.7-2.4) mg/dl Total Bilirubin 0.6 (0.2-1.0) mg/dl AST 32 (13-39) U/L ALT 24 (7-52) U/L Alkaline Phosphatase 85 (34-104) U/L Troponin I High Sens 31.2 H 31.0 H (0-14) pg/ml B-Natriuretic Peptide 430 H (0-100) pg/ml Total Protein 6.5 (6.0-8.3) gm/dl Albumin 3.6 (3.4-5.0) gm/dl Globulin 2.9 (2.5-4.0) gm/dl Albumin/Globulin Ratio 1.2 (0.9-2) SARS-CoV-2 (PCR) POSITIVE A* (Negative) Influenza Type A (PCR) Negative (Neg) Influenza Type B (PCR) Negative (Neg) RSV (RT-PCR) Negative (Neg) Imaging Data Radiologist's Impression: Chest X-Ray 04/01/23 16:44 SINGLE VIEW CHEST CLINICAL HISTORY: Dyspnea FINDINGS: An AP, portable, upright chest radiograph is compared to chest x-ray and chest CT dated 05/12/2022. The heart is enlarged noting atherosclerotic calcification of the thoracic aorta. There is prominence of the pulmonary vasculature. Emphysema and chronic interstitial thickening is similar to previous. Scarring/atelectasis is noted at the lung bases. No airspace consolidation or large pleural effusion is identified No pneumothorax is seen. The skeletal structures are osteopenic. The bony thorax is grossly intact. Calcific tendinopathy is seen in the right shoulder. IMPRESSION: 1. Cardiomegaly with prominence of the pulmonary vasculature. Correlate clinically for evidence of fluid overload/congestive change. 2. Emphysema. 3. No airspace consolidation or large pleural effusion is identified. ACT 112: Negative or not required by law. Electronically signed by: Luigi García M.D. 04/01/2023 5:49 PM Discharge Plan Visit Data Chief Complaint: Shortness of Breath/Dyspnea Stated Complaint: SHORTNESS OF BREATH, COVID+ ED Provider: Lacey Melgar Discharge Problem: Shortness of breath, Non-ST elevation NH (NSTEMI), ESRD (end stage renal disease), COVID-19 Forms Stand Alone Forms: My [facility] [place] Prescriptions Prescriptions: No Action ipratropium-albuterol 0.5 mg-3 mg(2.5 mg base)/3 mL Solution For Nebulization 3 ml INHALATION QID PRN (Reason: Shortness Of Breath) Arabella-Tika 0.8 mg tablet 1 tab PO QAM fluticasone propionate 50 mcg/actuation Stephan,Suspension 2 spray INTRANASAL HS sevelamer carbonate 800 mg tablet 1,600 mg PO TIDM Rx Instructions: and 1 tab with snacks PER GMG. albuterol sulfate 90 mcg/actuation Hfa Aerosol Inhaler 2 puff INHALATION Q4H PRN (Reason: Wheezing) acetaminophen [Tylenol] 325 mg Tablet 650 mg PO Q6H PRN (Reason: Pain) loperamide [Imodium A-D] 2 mg Capsule 2 mg PO QID PRN (Reason: Diarrhea) lidocaine-prilocaine 2.5-2.5 % Cream 1 applic topical DIRECTED PRN (Reason: PRIOR TO DIALYSIS) Rx Instructions: APPLY SMALL AMT TO ACCESS SITE 1-2 HOURS PRIOR TO DIALYSIS. cover with occlusive dressing (saran wrap) camphor-menthol 0.5-0.5 % Lotion 1 applic TOPICAL DIRECTED PRN (Reason: Itching) lisinopril 40 mg Tablet 40 mg PO 4XWK Rx Instructions: ONLY ON NON-DIALYSIS DAYS, SUN, MON, WED, & FRI. Procrit 10,000 unit/mL Solution 0 unit IV DIRECTED Rx Instructions: PER DIALYSIS valacyclovir 1 gram tablet 1,000 mg PO QAM fluorometholone 0.1 % drops,suspension 1 drp OPL QAM hydralazine 25 mg tablet 37.5 mg PO BID Rx Instructions: ORDERED 50 MG BID PER GMG, PER [facility] NOTE--1 1/2 TABS BID. fluticasone furoate-vilanterol [Breo Ellipta] 200-25 mcg/dose Blister With Device 1 inh INHALATION DAILY docusate sodium [Colace] 100 mg capsule 100 mg PO BID PRN (Reason: Constipation) amiodarone 200 mg Tablet 200 mg PO DAILY 30 Days Qty: 60 0RF Referrals Referrals: Noam Armando MD [Primary Care Provider] -
[2023-04-01 17:47] LABS: Base Excess VBG 6.1 mEq/L; HCO3 VBG 31 mmol/L; Oxygen Saturation VBG < 60.0 %; PCO2 VBG 46 mmHg (38-50); PO2 VBG 28 mmHg; pH VBG 7.44 (7.36-7.41)
--- NOTE | 2023-04-01 17:51 | XRay Report ---
SINGLE VIEW CHEST CLINICAL HISTORY: Dyspnea FINDINGS: An AP, portable, upright chest radiograph is compared to chest x-ray and chest CT dated 04/28. The heart is enlarged noting atherosclerotic calcification of the thoracic aorta. There is pr ominence of the pulmonary vasculature. Emphysema and chronic interstitial thickening is similar to pr evious. Scarring/atelectasis is noted at the lung bases. No airspace consolidation or large pleural e ffusion is identified No pneumothorax is seen. The skeletal structures are osteopenic. The bony thora x is grossly intact. Calcific tendinopathy is seen in the right shoulder. IMPRESSION: 1. Cardiomegaly with prominence of the pulmonary vasculature. Correlate clinically for evidence of fl uid overload/congestive change. 2. Emphysema. 3. No airspace consolidation or large pleural effusion is identified. ACT 112: Negative or not required by law. Electronically signed by: Luigi García M.D. 04/01/2023 5:49 PM
[2023-04-01 17:53] LABS: Albumin Globulin Ratio 1.2 (0.9-2); Albumin Level 3.6 gm/dl (3.4-5.0); BUN Creatinine Ratio 3.5 (10-20); Bilirubin,Total 0.6 mg/dl (0.2-1.0); Calcium 8.7 mg/dl (8.6-10.3); Creatinine Clr Calc Pharmacy 7.9 ml/min; Est GFR (African American) 6.5 ml/min; Est GFR (Non-African American) 5.6 ml/min; Globulin 2.9 gm/dl (2.5-4.0); Magnesium 1.9 mg/dl (1.7-2.4); Potassium 3.5 mmol/L (3.5-5.1); Total Protein 6.5 gm/dl (6.0-8.3); Troponin I High Sensitivity 31.2 pg/ml (0-14)
[2023-04-01 18:02] LABS: Basophils # (auto) 0.01 K/uL (0.00-0.20); Basophils % (auto) 0.3 %; Eosinophils # (auto) 0.02 K/uL (0.00-0.50); Eosinophils % (auto) 0.6 %; Hematocrit (blood only) 31.1 % (37.0-47.0); Hemoglobin 10.5 g/dl (12.0-16.0); Immature Granulocytes # (auto) 0.02 K/uL (0.01-0.20); Immature Granulocytes % (auto) 0.6 %; Lymphocytes % (auto) 11.5 %; Mean Corpuscular Hemoglobin 41.2 pg (25.0-34.0); Mean Corpuscular Hgb Conc 33.8 g/dL (32.0-36.0); Mean Platelet Volume 11.4 fL (9.4-12.4); Monocytes # (auto) 0.41 K/uL (0.11-0.59); Monocytes % (auto) 11.7 %; Neutrophils # (auto) 2.63 K/uL (1.40-6.50); Neutrophils % (auto) 75.3 %; Platelet Count 119 K/uL (130-400); Polychromasia 1+; RDW Coefficient of Variation 12.5 % (11.5-14.5); RDW Standard Deviation 56.3 fL (36.4-46.3); Red Blood Count 2.55 M/uL (4.20-5.40); Tear Drop Cells 1+; Toxic Vacuolation 1+; White Blood Count 3.49 K/ul (4.8-10.8)
[2023-04-01 18:03] LABS: Influenza A virus by PCR Negative (Neg); Influenza B virus by PCR Negative (Neg); RSV by PCR Negative (Neg)
[2023-04-01 18:04] LABS: SARS CoV2 RNA(COVID-19) Ceph POSITIVE (Negative)
--- NOTE | 2023-04-02 00:20 | History & Physical Report ---
Date of Service April 01, 2023 Assessment & Plan (1) Shortness of breath: Plan: 78-year-old female with past medical history significant for type 2 diabetes, hyperparathyroidism of renal origin, COPD, chronic hypoxic respiratory failure on 3 L oxygen, paroxysmal atrial fibrillation, mesenteric artery stenosis, hypertension, nonrheumatic mitral regurgitation, end-stage renal disease on dialysis, anemia of chronic kidney disease, psoriasis, hypogammaglobinemia, ongoing tobacco abuse presents with shortness of breath and recently diagnosed with COVID. Patient states since last 3 to 4 days she is having COVID symptoms. Having cough, shortness of breath, chills and diarrhea. Diarrhea improved with Imodium. Feeling weak. Lives alone. Ambulates with walker. Did not feel safe to go home. Her oxygen requirements did not increase. Appetite is okay. Denies any chest pain. No nausea. No abdominal pain. Currently resting comfortably and hemodynamically stable. Somewhat hard to hear. Shortness of breath COVID History of COPD Ongoing tobacco abuse Chronic hypoxic respiratory failure on 3 L oxygen No increased requirement of oxygen Minimal rhonchi on exam Possible mild COPD exasperation from COVID We will do short course of steroids nebs ATC and as needed Continue home inhalers COVID precautions Close monitor End-stage renal disease On hemodialysis History of paroxysmal atrial fibrillation Moderate to severe mitral regurgitation On amiodarone History of GI bleed and anemia Patient desires no anticoagulation as per cardiology notes Hypertension On hydralazine and lisinopril Anemia of chronic disease Hemoglobin 10.5 Mild elevation troponin Mostly demand ischemia Follow serial enzymes DVT prophylaxis Heparin subcu Disposition Med/tele Full code History of Present Illness Chief Complaint: Shortness of breath Primary Care Provider: Noam Armando MD 78-year-old female with past medical history significant for type 2 diabetes, hyperparathyroidism of renal origin, COPD, chronic hypoxic respiratory failure on 3 L oxygen, paroxysmal atrial fibrillation, mesenteric artery stenosis, hypertension, nonrheumatic mitral regurgitation, end-stage renal disease on dialysis, anemia of chronic kidney disease, psoriasis, hypogammaglobinemia, ongoing tobacco abuse presents with shortness of breath and recently diagnosed with COVID. Patient states since last 3 to 4 days she is having COVID symptoms. Having cough, shortness of breath, chills and diarrhea. Diarrhea improved with Imodium. Feeling weak. Lives alone. Ambulates with walker. Did not feel safe to go home. Her oxygen requirements did not increase. Appetite is okay. Denies any chest pain. No nausea. No abdominal pain. Currently resting comfortably and hemodynamically stable. Somewhat hard to hear. Past medical history. As mentioned above Past surgical history. Colonoscopy. EGD. EGD with endoscopic ultrasound. Lasering of the secondary cataract. Appendectomy. Cholecystectomy. Total abdominal hysterectomy with removal of tubes Social history. . Lives alone. Used to smoke 1 pack a day but lately smoking only if 3 to 8 cigarettes daily. Smoking since last 50 years. No alcohol use. No drug use. Family history. Mother had arthritis. Diabetes. Father had diabetes. Heart disorder. Brother had diabetes. Brother on dialysis. Allergies Allergy/AdvReac Type Severity Reaction Status Date / Time chlorhexidine Allergy Intermediate ITCHING Verified 04/01/23 17:29 Home Medications Medication Instructions Recorded Confirmed Type ipratropium 0.5 mg-albuterol 3 mg 3 ml inhalation QID PRN Shortness 09/26/18 04/01/23 History (2.5 mg base)/3 mL nebulization Of Breath soln vitamin B complex-vitamin C-folic 1 tab PO QAM 09/26/18 04/01/23 History acid 0.8 mg tablet (Arabella-Tika) fluticasone propionate 50 2 spray intranasal HS 01/18/19 04/01/23 History mcg/actuation nasal spray,suspension sevelamer carbonate 800 mg tablet 1,600 mg PO TIDM 01/18/19 04/01/23 History albuterol sulfate 90 mcg/actuation 2 puff inhalation Q4H PRN Wheezing 04/05/19 04/01/23 History aerosol inhaler acetaminophen 325 mg tablet 650 mg PO Q6H PRN Pain 04/14/21 04/01/23 History (Tylenol) camphor-menthol 0.5 %-0.5 % lotion 1 applic topical DIRECTED PRN 04/14/21 04/01/23 History Itching epoetin gabriel 10,000 unit/mL 0 unit IV DIRECTED 04/14/21 04/01/23 History injection solution (Procrit) lidocaine-prilocaine 2.5 %-2.5 % 1 applic topical DIRECTED PRN 04/14/21 04/01/23 History topical cream PRIOR TO DIALYSIS lisinopril 40 mg tablet 40 mg PO 4XWK 04/14/21 04/01/23 History loperamide 2 mg capsule (Imodium 2 mg PO QID PRN Diarrhea 04/14/21 04/01/23 History A-D) valacyclovir 1 gram tablet 1,000 mg PO QAM 04/14/21 04/01/23 History fluorometholone 0.1 % eye 1 drp OPL QAM 01/25/22 04/01/23 History drops,suspension amiodarone 200 mg tablet 200 mg PO DAILY 30 days #60 tabs 05/12/22 04/01/23 Rx docusate sodium 100 mg capsule 100 mg PO BID PRN Constipation 04/01/23 04/01/23 History (Colace) fluticasone furoate 200 1 inh inhalation DAILY 04/01/23 04/01/23 History mcg-vilanterol 25 mcg/dose inhalation powder (Breo Ellipta) hydralazine 25 mg tablet 37.5 mg PO BID 04/01/23 04/01/23 History Past Med/Surg History Medical History Paroxysmal atrial fibrillation Chronic respiratory failure with hypoxia, on home O2 therapy ESRD (end stage renal disease) on dialysis follows with Dr. Reed; Hillary Corley Sat - [facility] (since 02/2013) On home oxygen therapy 3 LPM cont History of colon polyps Tobacco use History of GI bleed GI bleed hx History of Helicobacter pylori infection HTN (hypertension) Diastolic CHF Moderate mitral regurgitation "moderate to severe on 12/2015 echo" On 01/13/16 15:17 Blanca Chan wrote "echo 06/2015 - calcified mitral valve, moderate MR" Renal cyst H/O cardiovascular stress test "05/2013 - negative for ischemia" Pancreatic cyst AV fistula LUE COPD, moderate On 08/19/15 09:47 Mare Whyte wrote "2L O2 at home" Anemia of chronic disease Obesity Dyslipidemia Psoriasis Osteoarthritis Adrenal adenoma DM type 2 (diabetes mellitus, type 2) IDDM Surgical History History of surgery AVF creation History of intestinal surgery H/O nasal polypectomy History of cataract surgery H/O colonoscopy "2005, hyperplastic polyps repeat in 10 years " S/P appendectomy "1971" S/P cholecystectomy "1971" S/P left oophorectomy "1981" S/P ASH (total abdominal hysterectomy) "For Fibroids " Family History Father Myocardial infarction, Onset Age: 64 Mother , 87 Alzheimer disease Other No family history of adverse response to anesthesia Social History Smoking Status: Current some day smoker Tobacco Type: Cigarettes Cigarettes Per Day: 3; Second Hand Exposure: No; Do You Dip or Chew Tobacco: No; Hx Alcohol Use: No Hx Substance Use: No Preferred Language: Turkish Communication Ability: Effective Juvenile Officer 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 Beliefs That Will Affect Care: None marital status: / Current Living Situation: Alone current occupational status: retired Feels Safe at Home: Yes Assistive Devices: Oxygen - Continuous and Walker Review of Systems Review of Systems: All systems reviewed & are unremarkable except as noted in HPI & below Physical Exam Physical Exam: General- Not in distress. Head- atraumatic Eyes- PERRL. ENT- oropharynx clear Neck- supple, no JVD. Lungs- clear to auscultation very mild b/l rhonchi Heart- regular rhythm; no murmur, no gallop. Abdomen- normal bowel sounds, soft, nontender, no distension. Extremities- no pretibial edema, no erythema seen. Neuro- alert, oriented x 3; PERRL, no facial palsy; no dysarthria; moves e xtremities. Skin- warm & dry Results & Data Results & Data Vital Signs (Past 12 Hours) Vital Signs Pulse Pulse Resp BP BP Pulse Ox O2 Del Method 04/01/23 20:55 57 L 04/01/23 19:59 60 21 128/52 L 99 Nasal Cannula 04/01/23 17:05 93 Nasal Cannula 04/01/23 17:00 63 20 96 Nasal Cannula 04/01/23 17:00 63 20 139/55 L 94 Nasal Cannula 04/01/23 16:54 65 O2 Flow Rate 04/01/23 20:55 04/01/23 19:59 3 04/01/23 17:05 3 04/01/23 17:00 3 04/01/23 17:00 3 04/01/23 16:54 Diagnostic Findings Laboratory Results WBC 3.49 K/ul (4.8-10.8) L 04/01/23 17:06 RBC 2.55 M/uL (4.20-5.40) L 04/01/23 17:06 Hgb 10.5 g/dl (12.0-16.0) L 04/01/23 17:06 Hct 31.1 % (37.0-47.0) L 04/01/23 17:06 MCV 122.0 fL (80.0-100.0) H 04/01/23 17:06 MCH 41.2 pg (25.0-34.0) H 04/01/23 17:06 MCHC 33.8 g/dL (32.0-36.0) 04/01/23 17:06 RDW Std Deviation 56.3 fL (36.4-46.3) H 04/01/23 17:06 RDW Coeff of Fior 12.5 % (11.5-14.5) 04/01/23 17:06 Plt Count 119 K/uL (130-400) L 04/01/23 17:06 MPV 11.4 fL (9.4-12.4) 04/01/23 17:06 Immature Gran % (Auto) 0.6 % 04/01/23 17:06 Neut % (Auto) 75.3 % 04/01/23 17:06 Lymph % (Auto) 11.5 % 04/01/23 17:06 [place] % (Auto) 11.7 % 04/01/23 17:06 Eos % (Auto) 0.6 % 04/01/23 17:06 Baso % (Auto) 0.3 % 04/01/23 17:06 Neut # (Auto) 2.63 K/uL (1.40-6.50) 04/01/23 17:06 Lymph # (Auto) 0.40 K/uL (1.20-3.40) L 04/01/23 17:06 [place] # (Auto) 0.41 K/uL (0.11-0.59) 04/01/23 17:06 Eos # (Auto) 0.02 K/uL (0.00-0.50) 04/01/23 17:06 Baso # (Auto) 0.01 K/uL (0.00-0.20) 04/01/23 17:06 Immature Gran # (Auto) 0.02 K/uL (0.01-0.20) 04/01/23 17:06 Toxic Vacuolation 1+ 04/01/23 17:06 Polychromasia 1+ 04/01/23 17:06 Tear Drop Cells 1+ 04/01/23 17:06 VBG pH 7.44 (7.36-7.41) H 04/01/23 17:30 VBG pCO2 46 mmHg (38-50) 04/01/23 17:30 VBG pO2 28 mmHg 04/01/23 17:30 VBG HCO3 31 mmol/L 04/01/23 17:30 VBG O2 Saturation < 60.0 % 04/01/23 17:30 VBG Base Excess 6.1 mEq/L 04/01/23 17:30 Sodium 142 mmol/L (136-145) 04/01/23 17:06 Potassium 3.5 mmol/L (3.5-5.1) 04/01/23 17:06 Chloride 99 mmol/L (98-107) 04/01/23 17:06 Carbon Dioxide 31 mmol/L (21-32) 04/01/23 17:06 Anion Gap 12 (3-11) H 04/01/23 17:06 BUN 23 mg/dl (6-23) 04/01/23 17:06 Creatinine 6.56 mg/dl (0.6-1.2) H* 04/01/23 17:06 Est Cr Clr Drug Dosing 7.9 ml/min 04/01/23 17:06 Est GFR ( Amer) 6.5 ml/min 04/01/23 17:06 Est GFR (Non-Af Amer) 5.6 ml/min 04/01/23 17:06 BUN/Creatinine Ratio 3.5 (10-20) L 04/01/23 17:06 Glucose 107 mg/dl (70-99(Fasting)) H 04/01/23 17:06 Calcium 8.7 mg/dl (8.6-10.3) 04/01/23 17:06 Magnesium 1.9 mg/dl (1.7-2.4) 04/01/23 17:06 Total Bilirubin 0.6 mg/dl (0.2-1.0) 04/01/23 17:06 AST 32 U/L (13-39) 04/01/23 17:06 ALT 24 U/L (7-52) 04/01/23 17:06 Alkaline Phosphatase 85 U/L (34-104) 04/01/23 17:06 Troponin I High Sens 31.0 pg/ml (0-14) H 04/01/23 18:59 B-Natriuretic Peptide 430 pg/ml (0-100) H 04/01/23 17:06 Total Protein 6.5 gm/dl (6.0-8.3) 04/01/23 17:06 Albumin 3.6 gm/dl (3.4-5.0) 04/01/23 17:06 Globulin 2.9 gm/dl (2.5-4.0) 04/01/23 17:06 Albumin/Globulin Ratio 1.2 (0.9-2) 04/01/23 17:06 SARS-CoV-2 (PCR) POSITIVE (Negative) A* 04/01/23 17:06 Influenza Type A (PCR) Negative (Neg) 04/01/23 17:06 Influenza Type B (PCR) Negative (Neg) 04/01/23 17:06 RSV (RT-PCR) Negative (Neg) 04/01/23 17:06 Impressions Chest X-Ray 04/01/23 16:44 SINGLE VIEW CHEST CLINICAL HISTORY: Dyspnea FINDINGS: An AP, portable, upright chest radiograph is compared to chest x-ray and chest CT dated 05/12/2022. The heart is enlarged noting atherosclerotic calcification of the thoracic aorta. There is prominence of the pulmonary vasculature. Emphysema and chronic interstitial thickening is similar to previous. Scarring/atelectasis is noted at the lung bases. No airspace consolidation or large pleural effusion is identified No pneumothorax is seen. The skeletal structures are osteopenic. The bony thorax is grossly intact. Calcific tendinopathy is seen in the right shoulder. IMPRESSION: 1. Cardiomegaly with prominence of the pulmonary vasculature. Correlate clinically for evidence of fluid overload/congestive change. 2. Emphysema. 3. No airspace consolidation or large pleural effusion is identified. ACT 112: Negative or not required by law. Electronically signed by: Luigi García M.D. 04/01/2023 5:49 PM ECG Additional Comments: ECG. Sinus rhythm with first-degree AV block at a rate of 60. No significant change was found. Code Status & VTE Plan VTE Prophylaxis Plan VTE Prophylaxis will be ordered: Yes
[2023-04-02] MEDS ORDERED: GLUCOSE 40% GEL 15 GM TUBE PO PRN (00:33)
[2023-04-02] MEDS ORDERED: DEXTROSE 50% 50 ML SYRINGE IV PRN (00:33)
[2023-04-02] MEDS ORDERED: ALBUT/IPRATROP 3MG/0.5MG NEB 3 ML VIAL NEB PRN (00:33)
[2023-04-02] MEDS ORDERED: GLUCOSE 10 TAB/TUBE PO PRN (00:33)
[2023-04-02] MEDS ORDERED: NITROGLYCERIN SL 0.4 MG/TAB TAB SL PRN (00:33)
[2023-04-02] MEDS ORDERED: GLUCAGON FOR INJ 1 MG VIAL SQ PRN (00:33)
[2023-04-02] MEDS ORDERED: ALBUTEROL HFA 8 GM INHALER INH PRN (00:33)
[2023-04-02] MEDS ORDERED: CAMPHOR MENTHOL TOP PRN (00:33)
[2023-04-02] MEDS ORDERED: ACETAMINOPHEN 325 MG TAB PO PRN (00:33)
[2023-04-02] MEDS ORDERED: LIDOCAINE/PRILOCAINE 2.5% EA CRM EXT PRN (00:33)
[2023-04-02] MEDS ORDERED: LOPERAMIDE HCL 2 MG CAP PO PRN (00:33)
[2023-04-02] MEDS ORDERED: CARBOHYDRATES FOR HYPOGLYCEMIA PO PRN (00:33)
[2023-04-02] MEDS ORDERED: DOCUSATE SODIUM 100 MG CAP PO PRN (00:33)
[2023-04-02] MEDS: HEPARIN SOD 5,000 UNIT/0.5 ML VIAL SQ SCH ×3 (06:33→21:19)
[2023-04-02] MEDS: ALBUT/IPRATROP 3MG/0.5MG NEB 3 ML VIAL NEB SCH ×4 (06:57→19:59)
[2023-04-02] MEDS: SEVELAMER HCL 800 MG TABLET PO SCH ×3 (08:36→16:06)
[2023-04-02] MEDS: hydrALAZINE HCL 25 MG TAB PO SCH ×3 (08:39→20:24)
[2023-04-02] MEDS: FLUTICASONE/VILANTEROL 200/25MCG 14 PUFFS/INHALER INH SCH (08:41)
[2023-04-02] MEDS: NEPHROCAPS PO SCH (08:42)
[2023-04-02 08:52] LABS: Basophils # (auto) 0.01 K/uL (0.00-0.20); Basophils % (auto) 0.5 %; Hemoglobin 9.5 g/dl (12.0-16.0); Immature Granulocytes # (auto) 0.01 K/uL (0.01-0.20); Immature Granulocytes % (auto) 0.5 %; Lymphocytes # (auto) 0.15 K/uL (1.20-3.40); Lymphocytes % (auto) 7.4 %; Mean Corpuscular Hemoglobin 40.4 pg (25.0-34.0); Mean Corpuscular Hgb Conc 32.8 g/dL (32.0-36.0); Mean Corpuscular Volume 123.4 fL (80.0-100.0); Monocytes # (auto) 0.08 K/uL (0.11-0.59); Neutrophils # (auto) 1.77 K/uL (1.40-6.50); Neutrophils % (auto) 87.6 %; Platelet Count 99 K/uL (130-400); RBC Morphology Unremarkable; RDW Coefficient of Variation 12.4 % (11.5-14.5); RDW Standard Deviation 56.7 fL (36.4-46.3); Red Blood Count 2.35 M/uL (4.20-5.40); White Blood Count 2.02 K/ul (4.8-10.8)
[2023-04-02 08:54] LABS: BUN Creatinine Ratio 3.5 (10-20); Calcium 8.2 mg/dl (8.6-10.3); Creatinine Clr Calc Pharmacy 6.2 ml/min; Est GFR (African American) 4.9 ml/min; Est GFR (Non-African American) 4.2 ml/min; Magnesium 1.9 mg/dl (1.7-2.4)
[2023-04-02] MEDS: AMIODARONE 200 MG TAB PO SCH (08:57)
[2023-04-02 08:59] LABS: Troponin I High Sensitivity 25.7 pg/ml (0-14)
[2023-04-02] MEDS ORDERED: valACYclovir HCL 500 MG TABLET PO SCH (09:00)
[2023-04-02 09:02] LABS: Estimated Average Glucose 123 mg/dl; Hemoglobin A1C 5.9 % (4.5-5.6)
--- OUTSIDE RECORDS SUMMARY | 2023-04-02 09:57 | External Medical Summary ---
Author Name Unknown Address Unknown Organization [id number]:LABORATORY [facility] [place] - [address] [facility] [id number] Laboratory Report Ordering Provider Test Date Status ZION OLIVARES 03/25/2023 08:26:48 Final Observation Date Value Abnormality Reference (Units ) Status SARS Coronavirus 2 03/25/2023 08:26:48 Positive Abnormal N egative Final SARS-CoV2 Coronavirus RNA de tected by PCR (amplified probe). Test results reported to [facility].
This express test was developed and its performance characteristics determined by [facility]. It has not been cleared or approved by the U.S. Food and Drug Administration (FDA). FDA does not require this test to go thru premarket FDA review. This test is used for clinical purposes. It should not be regarded as investigational or for research. This laboratory is certified under the Clinical Laboratory Improvement Amendments (CLIA) as qualified to perform high complexity clinical laboratory testing.

This test is a nucleic acid amplification test (NAAT), a reverse transcriptase polymerase chain reaction (RT-PCR) test, or a Centers for Disease Control-acceptable equivalent. The test is performed in a high complexity Clinical Laboratory Improvement Amendments-(CLIA) certified laboratory. The test is acceptable for SARS-CoV-2 diagnosis, surveillance, and travel within the [place] and to most countries. Please check with local testing authorities about requirements before travel.

The validation of bronchial specimens, tracheal aspirates, and sputum for this assay was developed and performance characteristics determined by [facility]. The validation of alternate specimen types has not been cleared or approved by the U.S. Food and Drug Administration (FDA). It has been determined that such clearance is not necessary. Influenza virus A RNA [Prese nce] in Specimen by ENEIDA with probe detection 03/25/2023 08:26:48 Negative Negative Final No Influenza A RNA detected by PCR (amplified probe) Influenza virus B RNA [Prese nce] in Specimen by ENEIDA with probe detection 03/25/2023 08:26:48 Negative Negative Final No Influenza B RNA detected by PCR (amplified probe) Respiratory syncytial virus RNA [Identifier] in Specimen by ENEIDA with probe detection 03/25/2023 08:26:48 Negative Negative Final No Respiratory Syncytial Vir us RNA detected by PCR (amplified probe) Performing Location LABORATORY [facility] [place] - [facility] [address] [facility] [id number]
--- OUTSIDE RECORDS SUMMARY | 2023-04-02 09:57 | External Medical Summary | Summary of Care ---
Author Name Unknown Organization [facility] Address [address] [place] [address] Phone [phone] Care Team Providers Care Disintegrator Feeder Name Role Phone Noam Armando MD Primary Care Provide r Reason for Visit * Reason Comments Acute Encounter Details Date Type Department Care Team (Late st Contact Info) Description 03/25/2023 8:20 AM EST Office Visit Family Medicine [address] [place] [address] Nadiya Blackwell PA-C [address] [place] [address] [place] [address] Viral URI with cough* Allergies Active Allergy Reactions Criticality Noted Date Comments Chlorhexidine Itching Medium 01/03/2019 documented as of this encounter (statuses as of 03/29/2023) Medications Medication Sig Dispensed Refills Start Date End Date Status PROCRIT [id number] UNIT/ML IJ SOLN Per dialysis clinic 0 Active albuterol (VENTOLIN HFA) 108 (90 BASE) MCG/ACT inhalerIndication s:COPD, moderate ([facility]) Inhale 2 Puffs by mouth every 4 hours as needed for Wheezing. 1 Inhaler 5 02/24/2015 Active Blood Glucose Monitoring Suppl ([employer] ULTRA MINI) W/DEVICE KITIndications:Ty pe 2 diabetes, HbA1C goal < 8% (HCC) test blood sugar up to 4 times daily ; dx: E11.9 1 Kit 0 04/09/2015 Active oxygen GAS Use 3 L/min(Oxygen) as directed. At bedtime and as needed during the day-patient reports oxygen is continuous 0 07/17/2016 Active Acetaminophen 325 MG Oral Tablet Take 2 Tablets by mouth every 6 hours as needed for Pain. 0 Active valACYclovir (VALTREX) 1000 MG Tablet Take 1 Tablet by mouth in the morning. 4 09/30/2016 Active Camphor-Menthol 0.5-0.5 % External Lotion Apply topically to affected area as needed for Itching. Apply to affected areas as needed 0 12/28/2016 Active Loperamide HCl 2 MG Oral Capsule Take 1 Capsule by mouth 4 times a day as needed for Diarrhea. 0 Active lidocaine-priloca ine (EMLA) 2.5-2.5 % cream APPLY SMALL AMOUNT TO ACCESS SITE 1 TO 2 HOURS BEFORE DIALYSIS. COVER WITH OCCLUSIVE DRESSING (SARAN WRAP). 30 g 11 03/01/2017 Active Docusate Sodium 100 MG Oral CapsuleIndication s:2 tabs 2 x daily as needed for no BM Take 1 Capsule by mouth 2 times a day as needed for Constipation. 0 Active sevelamer carbonate (RENVELA) 800 MG Tablet 3 with meals and 1 with snacks 01/29/19 reports taking 2 with meals, 1 with snack 3 10/09/2018 Active OneTouch Ultra In Vitro Strip (Glucose Blood)Indications :Type 2 diabetes, HbA1C goal < 8% ([facility]) TEST BLOOD SUGAR 3 TIMES DAILY DX E11.9 300 Strip 3 08/29/2020 Active Fluorometholone 0.1 % Ophthalmic Suspension 1 Drop. 1 drop left eye 0 07/28/2021 Active Ipratropium-Albut mary 0.5-2.5 (3) MG/3ML Inhalation Solution (Duoneb)Indicatio ns:COPD, moderate ([facility]) INHALE 1 UNIT DOSE VIA NEBULIZER 4 TIMES A DAY NEEDED. DX: J44.9 (PATIENT CURRENTLY USING 1-2 TIMES PER DAY.) 360 mL 5 02/22/2022 Active Fluticasone Propionate 50 MCG/ACT Nasal Suspension (Flonase) USE 2 SPRAYS IN EACH NOSTRIL DAILY 48 mL 3 08/16/2022 Active Arabella-Tika Oral Tablet Take by mouth daily. 0 Active Amiodarone HCl 200 MG Oral Tablet (Cordarone)Indica tions:Hypertensiv e heart and kidney disease with chronic diastolic congestive heart failure and stage 5 chronic kidney disease on chronic dialysis (HCC) Take 1 Tablet by mouth in the morning. 90 Tablet 3 10/06/2022 Active Fluticasone Furoate-Vilantero l 200-25 MCG/ACT Inhalation Aerosol Powder Breath Activated (BREO ellipta) Inhale 1 Puff by mouth in the morning. 60 Blister Dosing Unit 11 01/16/2023 Active hydrALAZINE HCl 50 MG Oral Tablet (Apresoline) Take 2 Tablets by mouth in the morning and 2 Tablets before bedtime. 0 02/01/2023 Active Lisinopril 40 MG Oral TabletIndications :Hypertensive heart and kidney disease with chronic diastolic congestive heart failure and stage 5 chronic kidney disease on chronic dialysis (HCC) 1 tab by mouth only on NON dialysis days (Sun,Mon,Tue,Tue) 0 03/03/2023 Active documented as of this encounter (statuses as of 03/29/2023) Active Problems Problem Noted Date Diagnosed Date Osteolytic lesion 05/28/2022 Hypogammaglobulinemia 05/28/2022 Closed fracture of sacrum with delayed healing 0 05/28/2022 Closed nondisplaced fracture of acetabulum with delayed healing 05/28/2022 Chronic hypoxemic respiratory failure 04/05/2022 COPD, group C, by GOLD 2017 classification 05/08 Overview: Per COPD GOLD Classification Oxygen dependent 11/04/2018 Hypertensive heart and kidne y disease with chronic diastolic congestive heart failure and stage 5 chronic kidney disease on chronic dialysis 10/02/2018 Mitral annular calcification 02/20/2018 Non-rheumatic mitral regurgitation 02/20/2018 History of tobacco use 12/28/2017 History of benign neoplasm of colon 12/28/2017 Type 2 diabetes mellitus wit h chronic kidney disease on chronic dialysis, without long-term current use of insulin 12/28/2017 Mesenteric artery stenosis 02/21/2017 Secondary hyperparathyroidism of renal origin Paroxysmal atrial fibrillation 01/21/2016 Renal cyst, right 10/13/2015 End stage renal disease on dialysis 09/24/2013 Dialysis patient 07/27/2013 A-V fistula 01/19/2012 Type 2 diabetes, HbA1C goal < 8% 03/26/2011 Anemia in ESRD (end-stage renal disease) 011 HTN, goal below 150/90 04/23/2009 Overview: Per HTN Taxonomy. DYSLIPIDEMIA, GOAL LDL BELOW 100 03/10/2009 Overview: Per Lipid Taxonomy. ADVANCE DIRECTIVE INFORMATION 04/12/2005 Overview: No, Advance Directive brochure given to patient at prior appointment. Other psoriasis and similar disorders 04/12/2005 CERVICAL DISC DEGEN 11/22/2003 GENERAL OSTEOARTHROSIS 09/06/2001 Adrenal adenoma Overview: left documented as of this encounter (statuses as of 03/29/2023) Resolved Problems Problem Noted Date Diagnosed Date Resolved Date Malfunction of arteriovenous dialysis fistula 08/15/1910/02/2021 Influenza B 07/04/2017 12/28/2017 Acute GI bleeding 07/01/2017 12/28/2017 Acute blood loss anemia 07/01/2017 1005/2017 COPD, severity to be determined 07/01/2017 07/14/2017 Chronic respiratory failure with hypoxia 12/17/2016 05/30/2020 Heart failure, diastolic, due to HTN 12/17/2016 10/16/2018 Pancreatic cyst 10/13/2015 04/10/2019 Anemia of chronic renal failure 06/16/2011 12/17/2016 COPD, moderate 04/08/2011 05/09/2019 Overview: Per COPD GOLD Classification 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 ICD-10 update of inactive term Kidney disease, chronic, sta ge IV (GFR 15-29 ml/min) 11/06/2008 01/28/2014 Overview: Modified by CKD Protocol #1. Mixed dyslipidemia 05/03/2007 9 Overview: Per Lipid Taxonomy. BENIGN NEOPLASM LG BOWEL 02/02/200605/2017 Overview: Colonoscopy 01/31/06--hyperplastic polyp--repeat 10 years DIAB RENAL MANIF ADULT 04/12/200512/28 Renal failure 04/12/2005 11/06/2008 Overview: Modified by CKD Protocol #1. Proteinuria 10/09/2003 02/24/2015 NEPHROTIC SYN IN OTH DIS 10/09/200305/2017 DM type 2, not at goal 03/13/200301/09 Overview: Modified per Diabetes protocol #14. Cramp in limb 09/06/2001 02/24/2015 CHRONIC AIRWAY OBSTRUCTION NEC 09/20/2000 02/24/2015 Other and unspecified noninf ectious gastroenteritis and colitis(558.9) 02/24 Other specified urticaria Headache 02/24/2015 Overview: ICD-10 update of inactive term Sialoadenitis 02/24/2015 Polyp of nasal cavity 2017 OBESITY, UNSPECIFIED 010 Overview: Per Obesity Taxonomy HTN, goal below 140/90 04/23 Overview: Per HTN Taxonomy. Medial epicondylitis 015 Renal cyst 12/07/2013 Tobacco use disorder 018 documented as of this encounter (statuses as of 03/29/2023) Immunizations Name Administration Dates Next Due COVID-19 mRNA, LNP-s, No Pre serve, 2-Dose Series ([facility] [employer] [facility]) 02/12/2021,05/22/2020,05/01/2020 COVID-19, mRNA, LNP-s, PF, B ooster, 100mcg/0.5mg (Moderna) 08/04/2021 Covid-19, Mrna, Lnp-s, Pf, B ivalent, 50 Mcg, IM, 12 yrs and above (Moderna) 01/07/2022 Hepatitis B, 20+ yrs 11/08/2017,07/13/19 18,06/07/2017,05/10,08/14/2015,05/15/2015,04/10/2015 Pneumococcal Conjugate Vacc, 13 Valent (Prevnar) 02/24/2015 Pneumococcal Polysaccharide PPV23 (Pneumovax) 09/04/2012,08/24/2005 Seasonal Influenza Virus Vac cine, Unspecified Formulation 12/13/2018,12/14/2017,01/21/2016,01/09,01/08/2013,01/20/2012,01/12/2011 ,01/27/2010,12/05/2008,02/24/2007,07/2003,01/31/2003,02/21/2002 Seasonal Influenza, PF, 6 M & above, IM , (FluLaval or Fluzone) 12/21/2016 Seasonal Influenza, Quadriva lent Hd (Fluzone Hd) 12/03/2022(Deferred: Patient Refused - Dr. Jose Rafael Rocha, patient recieves from [facility] nurse later in season),12/15/2021,12/30/2020 Seasonal Influenza, Quadriva lent, No Preserve, IM 12/13/2018,12/14/2017,01/21/2016 Seasonal Influenza, Split, I IV3, With Preserve, Inj 12/26/2014,01/09/2014,01/08/2013,01/19,01/12/2011,01/27/2010,12/05/2008 ,02/24/2007 Seasonal Influenza, Trivalen t, High Dose, No Preserve, IM 01/17/2020 TDAP (age 10 and older)(Boostrix) 08/04/2010 TDAP (age 11 and older)(Adacel) 08/05/19 11,12/05/2008(Deferred: Patient Refused) Varicella Zoster Vaccine (Adult) 01/09/2013 documented as of this encounter Social History Tobacco Use Types Packs/Day Years Used Date Smoking Tobacco: Every Day Cigarettes 0.3 50 Smokeless Tobacco: Never Comments:5-6 cigarettes a da y Alcohol Use Standard Drinks/Week Comments No 0 (1 standard drink = 0.6 oz pur e alcohol) PHQ-2 Answer Date Recorded PHQ-2 Score 0 11/09/2019 Sex and Gender Information Value Date Recorded Sex Assigned at Not on file Gender Identity Not on file Sexual Orientation Not on file Job Start Date Occupation Industry Not on file Not on file Not on file documented as of this encounter Last Filed Vital Signs Vital Sign Reading Time Taken Comments Blood Pressure 142/50 03/25/2023 8:14 AM EST Pulse 70 03/25/2023 8:14 AM EST Temperature 36.1 C (97 F) 03/25/2023 8:14 AM EST Respiratory Rate - - Oxygen Saturation - - Inhaled Oxygen Concentration - - Weight 79.8 kg (176 lb) 03/25/2023 8:14 AM EST Height - - Body Mass Index 28.41 12/03/2022 6:28 AM EDT documented in this encounter Functional Status Functional Status Response Date of Assess ment Are you deaf or do you have serious difficulty hearing? No 07/01/2017 Are you blind or do you have serious difficulty seeing, even when wearing glasses? Yes-reading 07/01/2017 Do you have serious difficul ty walking or climbing stairs? (5 years old or older) No-but doesnt do stairs 07/01/2017 Do you have difficulty dress ing or bathing? (5 years old or older) No 07/01/2017 Because of a physical, menta l, or emotional condition, do you have difficulty doing errands alone such as visiting a doctor s office or shopping? (15 years old or older) Yes 07/01/2017 Cognitive Status Response Date of Assessm ent Because of a physical, menta l, or emotional condition, do you have serious difficulty concentrating, remembering, or making decisions? (5 years old or older) Yes-recently trouble remembering 07/01/2017 documented as of this encounter Progress Notes * Nadiya Blackwell PA-C - 03/25/2023 8:17 AM EST Nursing Notes: Bela Eagle LPN 03/25/23 0815 Sign at exiting of workspace Chills "really bad" on Tuesday, but no fever Was coughing Feels like mucous is stuck Still cold Didn't go to dialysis yesterday- RN says its COVID Pt here today with slight cough, chills for the past few days. Pt states that she always has a cough. She is a smoker. The cough seems to be a little worse than normal. Pt denies SOB more than normal, chest pain. The chills have cleared. She was having a runny nose but this also cleared. Pt denies nausea, vomiting, diarrhea, ear pain, sore throat. The nurse at dialysis is worried about covid. Pt would like to have test today. Review of patient's allergies indicates: Allergen Reactions Chlorhexidine Itching Current Outpatient Medications Medication Sig Dispense Refill PROCRIT [id number] UNIT/ML IJ SOLN Per dialysis clinic albuterol (VENTOLIN HFA) 108 (90 BASE) MCG/ACT inhaler Inhale 2 Puffs by mouth every 4 hours as needed for Wheezing. 1 Inhaler 5 Blood Glucose Monitoring Suppl ([employer] ULTRA MINI) W/DEVICE KIT test blood sugar up to 4 times daily ; dx: E11.9 1 Kit 0 oxygen GAS Use 3 L/min(Oxygen) as directed. At bedtime and as needed during the day-patient reportsoxygen is continuous Acetaminophen 325 MG Oral Tablet Take 2 Tablets by mouth every 6 hours as needed for Pain. valACYclovir (VALTREX) 1000 MG Tablet Take 1 Tablet by mouth in the morning. 4 Camphor-Menthol 0.5-0.5 % External Lotion Apply topically to affected area as needed for Itching. Apply to affected areas as needed Loperamide HCl 2 MG Oral Capsule Take 1 Capsule by mouth 4 times a day as needed for Diarrhea. lidocaine-prilocaine (EMLA) 2.5-2.5 % cream APPLY SMALL AMOUNT TO ACCESS SITE 1 TO 2 HOURS BEFORE DIALYSIS. COVER WITH OCCLUSIVE DRESSING (SARAN WRAP). 30 g 11 Docusate Sodium 100 MG Oral Capsule Take 1 Capsule by mouth 2 times a day as needed for Constipation. sevelamer carbonate (RENVELA) 800 MG Tablet 3 with meals and 1 with snacks 01/29/19 reports taking 2 with meals, 1 with snack 3 Mainkeys IncTouch Ultra In Vitro Strip (Glucose Blood) TEST BLOOD SUGAR 3 TIMES DAILY DX E11.9 300 Strip 3 Fluorometholone 0.1 % Ophthalmic Suspension 1 Drop. 1 drop left eye Ipratropium-Albuterol 0.5-2.5 (3) MG/3ML Inhalation Solution (Duoneb) INHALE 1 UNIT DOSE VIA NEBULIZER 4 TIMES A DAY NEEDED. DX: J44.9 (PATIENT CURRENTLY USING 1-2 TIMES PER DAY.) 360 mL 5 Fluticasone Propionate 50 MCG/ACT Nasal Suspension (Flonase) USE 2 SPRAYS IN EACH NOSTRIL DAILY 48 mL 3 Arabella-Tika Oral Tablet Take by mouth daily. Amiodarone HCl 200 MG Oral Tablet (Cordarone) Take 1 Tablet by mouth in the morning. 90 Tablet 3 Fluticasone Furoate-Vilanterol 200-25 MCG/ACT Inhalation Aerosol Powder Breath Activated (BREO ellipta) Inhale 1 Puff by mouth in the morning. 60 Blister Dosing Unit 11 hydrALAZINE HCl 50 MG Oral Tablet (Apresoline) Take 2 Tablets by mouth in the morning and 2 Tabletsbefore bedtime. Lisinopril 40 MG Oral Tablet 1 tab by mouth only on NON dialysis days (Sun,Mon,Wed,Fri) No current facility-administered medications for this visit. Past Medical History: Diagnosis Date Adrenal adenoma left After-cataract, obscuring vision Aphakia Background diabetic retinopathy(362.01) Dendritic keratitis Dialysis patient ([facility]) 07/27/2013 Headache(784.0) HTN, goal below 140/90 Medial epicondylitis bilateral Mitral regurgitation Need for influenza vaccination 12/30 received per pt. Obesity, BMI not known Other and unspecified noninfectious gastroenteritis and colitis(558.9) colitis - nonspecific Other psoriasis and similar disorders palms and soles Other specified urticaria ? etiology Otitis media Paroxysmal atrial fibrillation ([facility]) 01/21/2016 Polyp of nasal cavity Presbyopia Senile nuclear sclerosis Sialoadenitis parotiditis Tobacco use disorder Type II or unspecified type diabetes mellitus with ophthalmic manifestations, not stated as uncontrolled(250.50) ([facility]) Type II or unspecified type diabetes mellitus without mention of complication, not stated as uncontrolled Unspecified essential hypertension Unspecified iridocyclitis Social History Socioeconomic History Marital status: Spouse name: Not on file Number of children: 1 Years of education: 13 Highest education level: Not on file Occupational History 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 Employer: [id number] Comment: laid off 04/29 Employer: [employer] 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 - [employer] Tobacco Use Smoking status: Every Day Packs/day: 0.25 Years: 50.00 Additional pack years: 0.00 Total pack years: 12.50 Types: Cigarettes Smokeless tobacco: Never Tobacco comments: 5-6 cigarettes a day Vaping Use Vaping Use: Never used Substance and Sexual Activity Alcohol use: No Drug use: No Sexual activity: Yes Partners: Male Other Topics Concern Not on file Social History Narrative Not on file Social Determinants of Health Financial Resource Strain: Not on file Food Insecurity: Not on file Transportation Needs: Not on file Physical Activity: Not on file Stress: Not on file Social Connections: Not on file Intimate Partner Violence: Not on file Housing Stability: Not on file O:Blood pressure 142/50, pulse 70, temperature 36.1 C (97 F), temperature source Tympanic, weight 79.8 kg (176 lb). GENERAL: alert, healthy, and no distress NECK: supple, no adenopathy EYES: conjunctiva are pink and non-injected, sclera clear EARS: External ears normal, Canals clear, TM's Normal NOSE: no mucosal erythema, no mucosal edema, no purulent discharge OROPHARYNX: no exudate, no erythema, lips, buccal mucosa, and tongue normal, and mucous membranes are moist HEART: regular rate & rhythm, no murmur, and no gallops LUNGS: chest symmetric with normal AP diameter, no chest deformities noted, no chest wall tenderness, lungs clear to auscultation A:Viral URI with cough (Primary) - INFLUENZA A/B RSV SARS-COV2,PCR; Future; Expected date: 03/25/2023 - XR CHEST 2 VIEWS - INFLUENZA A/B RSV SARS-COV2,PCR Will xray chest. 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 Any questions/problems, please call. Rest, fluids. If anything changes, worsens, develops new sx, please call ROBERT. Follow Up: Return if symptoms worsen or fail to improve. Nadiya Blackwell PA-C documented in this encounter Nursing Notes * Bela Eagle LPN - 03/25/2023 8:13 AM EST Chills "really bad" on Tuesday, but no fever Was coughing Feels like mucous is stuck Still cold Didn't go to dialysis yesterday- RN says its COVID documented in this encounter Plan of Treatment Upcoming Encounters Date Type Department Care Team (Late st Contact Info) Description 03/31/2023 5:30 PM EST Home Visit [facility], [facility] [address] [facility] [place] [address] Elly Honeycutt RN [address] [place] [address] 04/04/2023 12:20 PM EST Office Visit [address] [phone] Nadiya Blackwell PA-C [address] [place] [address] [place] [address] 10/03/2023 1:40 PM EDT Office Visit [address] [phone] Noam Armando MD [address] [place] [address] [place] [address] Health Maintenance Due Date Last Done Comments DISCUSS TOBACCO CESSATION (REFER TO SMARTSET #7910) 1945 Alpha-1 Antitrypsin 1965 Zoster Vaccines (2 of 3) 03/06/2013 01/09/2013 *ADVANCE DIRECTIVE NOT ON FILE 05/11/2019 Diabetic Foot Exam 04/27/2020 04/27/2019, 1 , 03/14/2017, Additional history exists DTaP,Tdap,and Td Vaccines (3 - Td or Tdap) 08/04/2020 08/04/2010, 08/04/2010 Depression Screening 11/08/2020 11/09/2019 COVID-19 Vaccine ( season) 2022 01/07/2022, 08/04/2021, 02/12/2021, Additional history exists HbA1c 04/03/2023 10/01/2022, 03/29, 05/30/2020, Additional history exists Diabetic Eye Exam 11/26/2023 11/25/2022, , 11/23/2018, Additional history exists O2 ASSESSMENT COMPLETED IN PAST YEAR FOR COPD 12/04/2023 12/03/2022 Fecal Occult Blood Test Discontinued 09/15/2000 Pneumococcal Vaccine: 65+ Years Completed 02/24/2015, 09/04/2012, 08/24/2005 COLONOSCOPY-EVERY 5 YRS AGES 18-100 Discontinued 08/27/2020, 05/21/2015, 01/31/2006 Colonoscopy Discontinued 08/27/2020, 04/29, 01/31/2006 Colorectal Cancer Screening Discontinued Influenza Vaccine (FLU shot) Completed 01/04/2023, 12/15/2021, 12/30/2020, Additional history exists Cologuard Discontinued GARDASIL-HPV IMMUNIZATION SERIES Aged Out No longer eligible based on patient's age to complete this topic MENINGOCOCCAL (MENACTRA/MENVEO) Aged Out No longer eligible based on patient's age to complete this topic Sigmoidoscopy Discontinued documented as of this encounter Medical Devices Implanted 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 Ref: [id number]. Ref: [id number]. Lot: [id number]. Exp: 09/09/2021. documented as of this encounter Procedures Procedure Name Priority Date/Time Associated Diagnosis Comments XR CHEST 2 VIEWS Routine 03/25/2023 9:12 AM EST Viral URI with cough INFLUENZA A/B RSV SARS-COV2,PCR Routine 03/25/2023 8:26 AM EST Viral URI with cough documented in this encounter Results * XR CHEST 2 VIEWS (03/25/2023 9:12 AM EST) Anatomical Region Laterality Modality Chest Computed Radiogr aphy 03/25/2023 8:08 PM EST Impressions 03/25/2023 8:05 PM EST IMPRESSION No active disease. Narrative 03/25/2023 8:05 PM EST EXAM XR CHEST 2 VIEWS - 03/25/2023 9:12 am HISTORY "cough" TECHNIQUE Frontal and lateral views of the chest were obtained. COMPARISON 07/04/2017 FINDINGS The lungs are clear. There is no pleural effusion or pneumothorax. The cardiomediastinal silhouette is within normal limits. Procedure Note Antonino Singer MD - 03/25/2023 EXAM XR CHEST 2 VIEWS - 03/25/2023 9:12 am HISTORY "cough" TECHNIQUE Frontal and lateral views of the chest were obtained. COMPARISON 07/04/2017 FINDINGS The lungs are clear. There is no pleural effusion or pneumothorax. Thecardiomediastinal silhouette is within normal limits. IMPRESSION IMPRESSION No active disease. Nadiya Blackwell PA-C RADIOLOGY (RAD GEN ERAL) * (ABNORMAL) INFLUENZA A/B RSV SARS-COV2,PCR (03/25/2023 8:26 AM EST) SARS-CoV-2 (COVID-19) Result Positive(A) Negative 03/25/2023 3:00 PM EST [facility] Comment: SARS-CoV2 Coronavirus RNA detected by PCR (amplified probe). Test results reported to [facility]. This express test was developed and its performance characteristics determined by [facility]. It has not been cleared or approved [...] (RT-PCR) test, or a Centers for Disease Control- acceptable equivalent. The test is performed in a high complexity Clinical Laboratory Improvement Amendments-(CLIA) certified laboratory. The test is acceptable for SARS-CoV-2 diagnosis, surveillance, and travel within the [place] and to most countries. Please check with local testing authorities about requirements before travel. The validation of bronchial specimens, tracheal aspirates, and sputum for this assay was developed and performance characteristics determined by [facility]. The validation of alternate specimen types has not been cleared or approved by the U.S. Food and Drug Administration (FDA). It has been determined that such clearance is not necessary. Influenza A PCR Result Negative Negative 03/25/2023 3:00 PM EST [facility] Comment:No Influenza A RNA d etected by PCR (amplified probe) Influenza B PCR Result Negative Negative 03/25/2023 3:00 PM EST [facility] Comment:No Influenza B RNA d etected by PCR (amplified probe) RSV PCR Result Negative Negative 03/25/2023 3:00 PM EST [facility] Comment:No Respiratory Syncy tial Virus RNA detected by PCR (amplified probe) Upper Respiratory Nasopharyngeal swab / Unknown Non-blood Collection / Unknown 03/25/2023 8:26 AM EST 03/25/2023 9:02 AM EST Nadiya Blackwell PA-C LAB MICRO - GENERA L ORDERABLES [facility] [address] [place] [address] documented in this encounter Visit Diagnoses Diagnosis Viral URI with cough- Primary Acute upper respiratory infections of unspecified site documented in this encounter Advance Directives Latest Code Status on File Code Status Date Activated Date Inactivated Comments Full Code 07/01/2017 4:30 PM 07/09/2017 7:22 PM This o rder reflects the patients wishes and were consensually agreed upon. Question Answer Comments Discussion of Advance Directives occurred with: Not Discussed Code Status History Code Status Date Activated Date Inactivated Comments Full Code 01/28/2012 10:38 AM 01/28/2012 7:55 PM This order reflects the patients wishes and were consensually agreed upon. Question Answer Comments Discussion of Advance Directives occurred with: Not Discussed Full Code 08/19/2011 12:47 PM 08/19/2011 6:22 PM This order reflects the patients wishes and were consensually agreed upon. Question Answer Comments Discussion of Advance Directives occurred with: Patient Does the patient have a Living Will? No Does the patient have Health Care Power of Line Appliance Assembler? No Full Code 08/19/2011 9:34 AM 08/19/2011 12:47 PM This order reflects the patients wishes and were consensually agreed upon. Question Answer Comments Discussion of Advance Directives occurred with: Not Discussed Care Teams Disintegrator Feeder Relationship Specialty Start Date End Date Noam Armando MD [address] [place] [address] [place] [address] PCP - General Family Medicine 08/10/18 documented as of this encounter
--- OUTSIDE RECORDS SUMMARY | 2023-04-02 09:57 | External Medical Summary | Summary of Care ---
Author Name Unknown Organization [facility] Address [address] [place] [address] Phone [phone] Care Team Providers Care Materials Handling Equipment Operator Name Role Phone Noam Armando MD Primary Care Provide r Reason for Visit * Reason Comments Acute Encounter Details Date Type Department Care Team (Late st Contact Info) Description 03/25/2023 8:20 AM EST Office Visit Family Medicine [address] [place] [address] Nadiya Blackwell PA-C [address] [place] [address] [place] [address] Viral URI with cough* Allergies Active Allergy Reactions Criticality Noted Date Comments Chlorhexidine Itching Medium 01/03/2019 documented as of this encounter (statuses as of 03/25/2023) Medications Medication Sig Dispensed Refills Start Date End Date Status PROCRIT [id number] UNIT/ML IJ SOLN Per dialysis clinic 0 Active albuterol (VENTOLIN HFA) 108 (90 BASE) MCG/ACT inhalerIndication s:COPD, moderate ([facility]) Inhale 2 Puffs by mouth every 4 hours as needed for Wheezing. 1 Inhaler 5 02/24/2015 Active Blood Glucose Monitoring Suppl (Traackr ULTRA MINI) W/DEVICE KITIndications:Ty pe 2 diabetes, [...] :Type 2 diabetes, HbA1C goal < 8% ([facility]) TEST BLOOD SUGAR 3 TIMES DAILY DX E11.9 300 Strip 3 08/29/2020 Active Fluorometholone 0.1 % Ophthalmic Suspension 1 Drop. 1 drop left eye 0 07/28/2021 Active Ipratropium-Albut mary 0.5-2.5 (3) MG/3ML Inhalation Solution (Duoneb)Indicatio ns:COPD, moderate ([facility]) INHALE 1 UNIT DOSE VIA NEBULIZER 4 [...] as of this encounter (statuses as of 03/25/2023) Active Problems Problem Noted Date Diagnosed Date [...] as of this encounter (statuses as of 03/25/2023) Resolved Problems Problem Noted Date Diagnosed Date [...] as of this encounter (statuses as of 03/25/2023) Immunizations Name Administration Dates Next Due COVID-19 mRNA, LNP-s, No Pre serve, 2-Dose Series (Treater) 02/12/2021,05/22/2020,05/01/2020 COVID-19, mRNA, LNP-s, PF, B ooster, [...] Dr. Jose Rafael Rocha, patient recieves from [facility] home nurse later in season),12/15/2021,12/30/2020 Seasonal [...] Outpatient Medications Medication Sig Dispense Refill PROCRIT 89717 UNIT/ML IJ SOLN Per dialysis clinic albuterol (VENTOLIN HFA) 108 (90 BASE) MCG/ACT inhaler Inhale 2 Puffs by mouth every 4 hours as needed for Wheezing. 1 Inhaler 5 Blood Glucose Monitoring Suppl (Traackr ULTRA MINI) W/DEVICE KIT test blood sugar [...] 2 with meals, 1 with snack 3 Van Ackeren ConsultingTouch Ultra In Vitro Strip (Glucose Blood) TEST [...] Background diabetic retinopathy(362.01) Dendritic keratitis Dialysis patient ([facility]) 07/27/2013 Headache(784.0) HTN, goal below 140/90 Medial epicondylitis bilateral Mitral regurgitation Need for influenza vaccination 12/30 received per pt. Obesity, BMI not known Other and unspecified noninfectious gastroenteritis and colitis(558.9) colitis - nonspecific Other psoriasis and similar disorders palms and soles Other specified urticaria ? etiology Otitis media Paroxysmal atrial fibrillation ([facility]) 01/21/2016 Polyp of nasal cavity Presbyopia Senile nuclear sclerosis Sialoadenitis parotiditis Tobacco use disorder Type II or unspecified type diabetes mellitus with ophthalmic manifestations, not stated as uncontrolled(250.50) ([facility]) Type II or unspecified type diabetes mellitus without mention of complication, not stated as uncontrolled Unspecified essential hypertension Unspecified iridocyclitis Social History Socioeconomic History Marital status: Spouse name: Not on file Number of children: 1 Years of education: 13 Highest education level: Not on file Occupational History 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 SHOP DIRECTOR swab. Any questions/problems, please call. Rest, fluids. [...] Description 03/31/2023 5:30 PM EST Home Visit [facility], [facility] [address] [facility] [place] [address] Elly Honeycutt RN [address] [place] [address] 04/04/2023 12:20 PM EST Office Visit [address] [phone] Nadiya Blackwell PA-C [address] [place] [address] [place] [address] 10/03/2023 1:40 PM EDT Office Visit [address] [phone] Noam Armando MD [address] [place] [address] [place] [address] Pending Results Name Type Priority Associated Diagnoses Date /Time XR CHEST 2 VIEWS Medical Imaging Routine Viral URI with cough 03/25/2023 8:36 AM EST Scheduled Orders Name Type Priority Associated Diagnoses Orde r Schedule INFLUENZA A/B RSV SARS-COV2,PCR Lab Routine Viral URI with cough Expected: 03/25/2023 (Approximate), Expires: 03/24/2024 Health Maintenance Due Date Last Done Comments DISCUSS TOBACCO CESSATION (REFER TO SMARTSET #1869) 1945 Alpha-1 Antitrypsin 1965 Zoster Vaccines (2 of 3) 03/06/2013 01/09/2013 *ADVANCE DIRECTIVE NOT ON FILE 05/11/2019 Diabetic Foot Exam 04/27/2020 04/27/2019, 1 , 03/14/2017, Additional history exists DTaP,Tdap,and Td Vaccines (3 - Td or Tdap) 08/04/2020 08/04/2010, 08/04/2010 Depression Screening 11/08/2020 11/09/2019 COVID-19 Vaccine (2022- season) 2022 01/07/2022, 08/04/2021, 02/12/2021, Additional history [...] this encounter Medical Devices Implanted Type Area Facilitator Device Identifier Shelf Expiration Date Model / Serial / Lot Centice Medical_Tornado Embolization Microcoil_09/27 Implanted:Qty: 2 on 07/01/2017 by Harsha Vázquez MD at RAD[facility]Y [facility] N/A: Abdomen COOK : INTRV RAD 09/09/2021 [id number] / MWCE-18S- 7-KHANH TOVAR / [id number] Description:Tornado Emboliza tion Microcoil ([employer]). Ref: [id number]-18S-7/3-JUAN ANTONIO. Ref: [id number]. Lot: [id number]. Exp: 09/09/2021. documented as of this encounter Visit Diagnoses Diagnosis Viral URI [...] the patient have Health Care Power of Animal Attendants And Trainers? No Full Code 08/19/2011 9:34 AM 08/19/2011 12:47 PM This order reflects the patients wishes and were consensually agreed upon. Question Answer Comments Discussion of Advance Directives occurred with: Not Discussed Care Teams Materials Handling Equipment Operator Relationship Specialty Start Date End Date Noam Armando MD [address] [place] [address] [place] [address] PCP - General Family Medicine 08/10/18 documented as of this encounter
--- OUTSIDE RECORDS SUMMARY | 2023-04-02 09:57 | External Medical Summary | Summary of Care ---
Author Name Unknown Organization [facility] Address [address] [place] [address] Phone [phone] Care Team Providers Care Jewelry Bench Worker Name Role Phone Noam Armando MD Primary Care Provide r Reason for Visit * Reason Onset Date Comments Medication Problem 03/03/2023 Encounter Details Date Type Department Care Team (Late st Contact Info) Description 03/03/2023 Telephone Nephrology, [facility] [place] [address] [facility] [place] [address] Jessica Reed MD [address] [facility] [place] [address] Medication Problem Allergies Active Allergy Reactions Criticality Noted Date Comments Chlorhexidine Itching Medium 01/03/2019 documented as of this encounter (statuses as of 03/03/2023) Medications Medication Sig Dispensed Refills Start Date End Date Status PROCRIT 05632 UNIT/ML IJ SOLN Per dialysis clinic 0 Active albuterol (VENTOLIN HFA) 108 (90 BASE) MCG/ACT inhalerIndicatio ns:COPD, moderate (HCC) Inhale 2 Puffs by mouth every 4 hours as needed for Wheezing. 1 Inhaler 5 02/24/2015 Active Blood Glucose Monitoring Suppl (Vaxess TechnologiesTOUCH ULTRA MINI) W/DEVICE KITIndications:T ype 2 diabetes, HbA1C goal < 8% (HCC) [...] day as needed for Diarrhea. 0 Active lidocaine-priloc macho (EMLA) 2.5-2.5 % cream APPLY SMALL AMOUNT TO ACCESS SITE 1 TO 2 HOURS BEFORE DIALYSIS. COVER WITH OCCLUSIVE DRESSING (SARAN WRAP). 30 g 11 03/01/2017 Active Docusate Sodium 100 MG Oral CapsuleIndicatio ns:2 tabs 2 x daily as needed for no BM Take 1 Capsule by mouth 2 times a day as needed for Constipation. 0 Active sevelamer carbonate (RENVELA) 800 MG Tablet 3 with meals and 1 with snacks 01/29/19 reports taking 2 with meals, 1 with snack 3 10/09/2018 Active OneTouch Ultra In Vitro Strip (Glucose Blood)Indication s:Type 2 diabetes, HbA1C goal < 8% ([facility]) TEST BLOOD SUGAR 3 TIMES DAILY DX E11.9 300 Strip 3 08/29/2020 Active Fluorometholone 0.1 % Ophthalmic Suspension 1 Drop. 1 drop left eye 0 07/28/2021 Active Ipratropium-Albu terol 0.5-2.5 (3) MG/3ML Inhalation Solution (Duoneb)Indicati ons:COPD, moderate ([facility]) INHALE 1 UNIT DOSE VIA NEBULIZER 4 TIMES A DAY NEEDED. DX: J44.9 (PATIENT CURRENTLY USING 1-2 TIMES PER DAY.) 360 mL 5 02/22/2022 Active Fluticasone Propionate 50 MCG/ACT Nasal Suspension (Flonase) USE 2 SPRAYS IN EACH NOSTRIL DAILY 48 mL 3 08/16/2022 Active Arabella-Tika Oral Tablet Take by mouth daily. 0 Active Amiodarone HCl 200 MG Oral Tablet (Cordarone)Indic ations:Hypertens alonso heart and kidney disease with chronic diastolic congestive heart failure and stage 5 chronic kidney disease on chronic dialysis (HCC) Take 1 Tablet by mouth in the morning. 90 Tablet 3 10/06/2022 Active Fluticasone Furoate-Vilanter ol 200-25 MCG/ACT Inhalation Aerosol Powder Breath Activated (BREO ellipta) Inhale 1 Puff by mouth in the morning. 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 (HCC) 1 tab by mouth on dialysis days only (, , Tue) 90 Tablet 1 01/24/2023 3 Discontinue d(Refill) documented as of this encounter (statuses as of 03/03/2023) Active Problems Problem Noted Date Diagnosed Date [...] as of this encounter (statuses as of 03/03/2023) Resolved Problems Problem Noted Date Diagnosed Date Resolved Date Malfunction of arteriovenous dialysis fistula 08/15/19 22 10/02/2021 Influenza B 07/04/2017 12/28/2017 Acute GI bleeding 07/01/2017 12/28/2017 Acute blood loss anemia 07/01/2017 10/0 05/2017 COPD, severity to be determined 07/01/2017 07/14/2017 [...] as of this encounter (statuses as of 03/03/2023) Immunizations Name Administration Dates Next Due COVID-19 mRNA, LNP-s, No Pre serve, 2-Dose Series ([employer]) 02/12/2021,05/22/2020,05/01/2020 COVID-19, mRNA, LNP-s, PF, B ooster, 100mcg/0.5mg (Moderna) 08/04/2021 Covid-19, Mrna, Lnp-s, Pf, B ivalent, 50 Mcg, IM, 12 yrs and above (Moderna) 01/07/2022 Hepatitis B, 20+ yrs 11/08/2017,07/13/19 18,06/07/2017,05/10,08/14/2015,05/15/2015,04/10/2015 Pneumococcal Conjugate Vacc, 13 Valent (Prevnar) 02/24/2015 Pneumococcal Polysaccharide PPV23 (Pneumovax) 09/04/2012,08/24/2005 SEASONAL INFLUENZA, PF, 6 M & Above, IM , (FLULAVAL or FLUZONE) 12/21/2016 Seasonal Influenza Virus Vac cine, Unspecified Formulation 12/13/2018,12/14/2017,01/21/2016,01/09,01/08/2013,01/20/2012,01/12/2011 ,01/27/2010,12/05/2008,02/24/2007,11/0 07/2003,01/31/2003,02/21/2002 Seasonal Influenza, Quadriva lent Hd (Fluzone Hd) 12/03/2022(Deferred: Patient Refused - Dr. Jose Rafael Rocha, patient recieves from [facility] at home nurse later in season),12/15/2021,12/30/2020 Seasonal [...] on file documented as of this encounter Functional Status Functional Status Response [...] remembering 07/01/2017 documented as of this encounter Miscellaneous Notes * Telephone Encounter - Opal Cabrales RN - 03/03/2023 12:12 PM EST Med list updated per provider request. * Telephone Encounter - Opal Cabrales RN - 03/03/2023 12:10 PM EST ----- Message from Jessica Reed MD sent at 03/03/2023 12:00 PM EST ----- Pls change lisinopril RX to NON HD days only not on HD days. Dose adjustment documented in this encounter Plan of Treatment Upcoming Encounters Date Type Department Care Team (Late st Contact Info) Description 03/31/2023 5:30 PM EST [facility] Visit [facility] [address] [place] [address] Elly Honeycutt, MICHELLE [address] [place] [address] 04/04/2023 12:20 PM EST Office Visit [address] [phone] Nadiya Blackwell PA-C [address] [place] [address] [place] [address] 10/03/2023 1:40 PM EDT Office Visit [address] [place] [phone] Noam Armando MD [address] [place] [address] [place] [address] Health Maintenance Due Date Last Done Comments DISCUSS TOBACCO CESSATION (REFER TO SMARTSET #3853) 1945 Alpha-1 Antitrypsin 1965 Zoster Vaccines (2 of 3) 03/06/2013 01/09/2013 *ADVANCE DIRECTIVE NOT ON FILE 05/11/2019 Diabetic Foot Exam 04/27/2020 04/27/2019, 1 , 03/14/2017, Additional history exists DTaP,Tdap,and Td Vaccines (3 - Td or Tdap) 08/04/2020 08/04/2010, 08/04/2010 Depression Screening 11/08/2020 11/09/2019 COVID-19 Vaccine ( season) 2022 01/07/2022, 08/04/2021, 02/12/2021, Additional history exists Influenza Vaccine (FLU shot) (#1) 2022 12/15/2021, 12/30/2020, 01/17/2020, Additional history exists HbA1c 04/03/2023 10/01/2022, 03/29, 05/30/2020, Additional history exists Diabetic Eye Exam 11/26/2023 11/25/2022, , 11/23/2018, Additional history exists O2 ASSESSMENT COMPLETED IN PAST YEAR FOR COPD 12/04/2023 12/03/2022 Fecal Occult Blood Test Discontinued 09/15/2000 Pneumococcal Vaccine: 65+ Years Completed 02/24/2015, 09/04/2012, 08/24/2005 COLONOSCOPY-EVERY 5 YRS AGES 18-100 Discontinued 08/27/2020, 05/21/2015, 01/31/2006 Colonoscopy Discontinued 08/27/2020, 04/29, 01/31/2006 Colorectal Cancer Screening Discontinued Cologuard Discontinued GARDASIL-HPV IMMUNIZATION SERIES Aged Out No longer eligible based on patient's age to complete this topic MENINGOCOCCAL (MENACTRA/MENVEO) Aged Out No longer eligible based on patient's age to complete this topic Sigmoidoscopy Discontinued documented as of this encounter Medical Devices Implanted Type Area Manager Deli Device Identifier Shelf Expiration Date Model / Serial / Lot [employer] Medical_Tornado Embolization Microcoil_09/27 Implanted:Qty: 2 on 07/01/2017 by Harsha Vázquez MD at RADIOLOGY [facility] [place] N/A: Abdomen COOK : INTRV RAD 09/09/2021 [id number] / MWCE-18S- 7/3-TORSHANIA TOVAR / [id number] Description:Tornado Emboliza tion Microcoil ([employer]). Ref: [id number]-7/3-TORNA. Ref: [id number]. Lot: [id number]. Exp: 09/09/2021. 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 No Full Code 08/19/2011 9:34 AM 08/19/2011 12:47 PM This order reflects the patients wishes and were consensually agreed upon. Question Answer Comments Discussion of Advance Directives occurred with: Not Discussed Care Teams Jewelry Bench Worker Relationship Specialty Start Date End Date Noam Armando MD [address] [place] [address] [place] [address] PCP - General Family Medicine 08/10/18 documented as of this encounter
[2023-04-02] MEDS: INSULIN ASPART PER UNIT CHARGE SC SCH ×4 (10:38→20:24)
[2023-04-02] MEDS: methylPREDNISolone 40 MG in SYRINGE 0 ML IV SCH (10:55)
--- OUTSIDE RECORDS SUMMARY | 2023-04-02 11:08 | External Medical Summary | Summary of Care ---
Author Name Unknown Organization [facility] Address [address] [facility] [place] [address] Phone [phone] Care Team Providers Care Hash Slinger Name Role Phone Noam Armando MD Primary Care Provide r Reason for Visit * Reason Onset Date Comments Test Results 03/25/2023 Encounter Details Date Type Department Care Team (Late st Contact Info) Description 03/25/2023 Telephone Family Medicine [address] [place] [phone] [place] [address] Test Results Allergies Active Allergy Reactions Criticality Noted Date Comments Chlorhexidine Itching Medium 01/03/2019 documented as of this encounter (statuses as of 04/01/2023) Medications Medication Sig Dispensed Refills Start Date End Date Status PROCRIT 70413 UNIT/ML IJ SOLN Per dialysis clinic 0 Active albuterol (VENTOLIN HFA) 108 (90 BASE) MCG/ACT inhalerIndication s:COPD, moderate ([facility]) Inhale 2 Puffs by mouth every 4 hours as needed for Wheezing. 1 Inhaler 5 02/24/2015 Active Blood Glucose Monitoring Suppl (TopFloor ULTRA MINI) W/DEVICE KITIndications:Ty pe 2 diabetes, [...] :Type 2 diabetes, HbA1C goal < 8% ([facility]) TEST BLOOD SUGAR 3 TIMES DAILY DX E11.9 300 Strip 3 08/29/2020 Active Fluorometholone 0.1 % Ophthalmic Suspension 1 Drop. 1 drop left eye 0 07/28/2021 Active Ipratropium-Albut mary 0.5-2.5 (3) MG/3ML Inhalation Solution (Duoneb)Indicatio ns:COPD, moderate ([facility]) INHALE 1 UNIT DOSE VIA NEBULIZER 4 [...] as of this encounter (statuses as of 04/01/2023) Active Problems Problem Noted Date Diagnosed Date [...] as of this encounter (statuses as of 04/01/2023) Resolved Problems Problem Noted Date Diagnosed Date [...] as of this encounter (statuses as of 04/01/2023) Immunizations Name Administration Dates Next Due COVID-19 mRNA, LNP-s, No Pre serve, 2-Dose Series (LoveIt) 02/12/2021,05/22/2020,05/01/2020 COVID-19, mRNA, LNP-s, PF, B ooster, [...] Dr. Jose Rafael Rocha, patient recieves from [facility] at home nurse later in season),12/15/2021,12/30/2020 Seasonal [...] encounter Miscellaneous Notes * Telephone Encounter - Lili Rg LPN - 04/01/2023 1:48 PM EST Patient aware and verbalized understanding, will comply. * Telephone Encounter - Ivette Marks LPN - 03/30/2023 9:29 AM EST Called, left message for patient to return call. * Telephone Encounter - Anne Jordan DO - 03/25/2023 4:17 PM EST Pt is positive for COVID. Notify pt. documented in this encounter Plan of Treatment Upcoming Encounters Date Type Department Care Team (Late st Contact Info) Description 04/04/2023 12:20 PM EST Office Visit [address] [phone] Nadiya Blackwell PA-C [address] [place] [address] [place] [address] 04/18/2023 2:30 PM EST Home Visit [facility] [address] [place] [address] Elly Honeycutt, MICHELLE [address] [place] [address] 10/03/2023 1:40 PM EDT Office Visit [address] [phone] Noam Armando MD [address] [place] [address] [place] [address] Health Maintenance Due Date Last Done Comments DISCUSS TOBACCO CESSATION (REFER TO SMARTSET #3291) 1945 Alpha-1 Antitrypsin 1965 Zoster Vaccines (2 [...] this encounter Medical Devices Implanted Type Area Customs And Border Protection Inspector Device Identifier Shelf Expiration Date Model / Serial / Lot Cloudadmin Medical_Tornado Embolization Microcoil_09/27 Implanted:Qty: 2 on 07/01/2017 by Harsha Vázquez MD at [facility] [facility] N/A: Abdomen COOK : INTRV RAD 09/09/2021 [id number] / MWCE-18S- 7/3-KHANH DO / [id number] Description:Tornado Emboliza tion Microcoil ([employer]). Ref: [id number]-7/3-TORDANYELLE. Ref: [id number]. Lot: [id number]. Exp: 09/09/2021. documented as of this encounter Additional Health Concerns Infection Onset Date Last Indicated Resolved Time COVID-19 (confirmed) 03/25/2023 03/25/2023 documented as of this encounter Advance Directives Latest Code Status [...] the patient have Health Care Power of Sand Slinger Operator? No Full Code 08/19/2011 9:34 AM 08/19/2011 12:47 PM This order reflects the patients wishes and were consensually agreed upon. Question Answer Comments Discussion of Advance Directives occurred with: Not Discussed Care Teams Hash Slinger Relationship Specialty Start Date End Date Noam Armando MD [address] [place] [address] [place] [address] PCP - General Family Medicine 08/10/18 documented as of this encounter
--- NOTE | 2023-04-02 13:04 | Nephrology Consultation ---
Date of Consultation April 02, 2023 Assessment & Plan (1) ESRD (end stage renal disease): ESRD on HD. TThSat -She will be dialyzed today as per her outpatient prescription. Will try to optimize her volume status which would help her breathing. -Continue on outpatient medications. (2) Shortness of breath: - Likely sequelae of previous COVID infection -Will try to optimize the volume status with dialysis History of Present Illness Reason for Consultation: ESRD on HD Tuesday Admitted with shortness of breath, recent COVID infection Attending Physician: Chucho Chan MD History of Present Illness 78-year-old female, ESRD on hemodialysis Tuesday who presented to the ER with increasing shortness of breath. She was recently diagnosed with COVID in February her breathing has been getting worse over the last 3 to 4 days she felt weak and unsafe at home and decided to come to ER. Oxygen requirements are same at baseline and she appears comfortable. PMH of type 2 diabetes, hyperparathyroidism of renal origin, COPD, chronic hypoxic respiratory failure on 3 L oxygen, paroxysmal atrial fibrillation, mesenteric artery stenosis, hypertension, nonrheumatic mitral regurgitation, Allergies Allergy/AdvReac Type Severity Reaction Status Date / Time chlorhexidine Allergy Intermediate ITCHING Verified 04/01/23 17:29 Home Medications Medication Instructions Recorded Confirmed Type ipratropium 0.5 mg-albuterol 3 mg 3 ml inhalation QID PRN Shortness 09/26/18 04/01/23 History (2.5 mg base)/3 mL nebulization Of Breath soln vitamin B complex-vitamin C-folic 1 tab PO QAM 09/26/18 04/01/23 History acid 0.8 mg tablet (Arabella-Tika) fluticasone propionate 50 2 spray intranasal HS 01/18/19 04/01/23 History mcg/actuation nasal spray,suspension sevelamer carbonate 800 mg tablet 1,600 mg PO TIDM 01/18/19 04/01/23 History albuterol sulfate 90 mcg/actuation 2 puff inhalation Q4H PRN Wheezing 04/05/19 04/01/23 History aerosol inhaler acetaminophen 325 mg tablet 650 mg PO Q6H PRN Pain 04/14/21 04/01/23 History (Tylenol) camphor-menthol 0.5 %-0.5 % lotion 1 applic topical DIRECTED PRN 04/14/21 04/01/23 History Itching epoetin gabriel 10,000 unit/mL 0 unit IV DIRECTED 04/14/21 04/01/23 History injection solution (Procrit) lidocaine-prilocaine 2.5 %-2.5 % 1 applic topical DIRECTED PRN 04/14/21 04/01/23 History topical cream PRIOR TO DIALYSIS lisinopril 40 mg tablet 40 mg PO [id number] 04/14/21 04/01/23 History loperamide 2 mg capsule (Imodium 2 mg PO QID PRN Diarrhea 04/14/21 04/01/23 History A-D) valacyclovir 1 gram tablet 1,000 mg PO QAM 04/14/21 04/01/23 History fluorometholone 0.1 % eye 1 drp OPL QAM 01/25/22 04/01/23 History drops,suspension amiodarone 200 mg tablet 200 mg PO DAILY 30 days #60 tabs 05/12/22 04/01/23 Rx docusate sodium 100 mg capsule 100 mg PO BID PRN Constipation 04/01/23 04/01/23 History (Colace) fluticasone furoate 200 1 inh inhalation DAILY 04/01/23 04/01/23 History mcg-vilanterol 25 mcg/dose inhalation powder (Breo Ellipta) hydralazine 25 mg tablet 37.5 mg PO BID 04/01/23 04/01/23 History Patient History Medical History Paroxysmal atrial fibrillation Chronic respiratory failure with hypoxia, on home O2 therapy ESRD (end stage renal disease) on dialysis follows with Dr. Reed; [facility], [facility] (since 02/2013) On home oxygen therapy 3 LPM cont History of colon polyps Tobacco use History of GI bleed GI bleed hx History of Helicobacter pylori infection HTN (hypertension) Diastolic CHF Moderate mitral regurgitation "moderate to severe on 12/2015 echo" On 01/13/16 15:17 Blanca Chan wrote "echo 06/2015 - calcified mitral valve, moderate MR" Renal cyst H/O cardiovascular stress test "05/2013 - negative for ischemia" Pancreatic cyst AV fistula LUE COPD, moderate On 08/19/15 09:47 Mare Whyte wrote "2L O2 at home" Anemia of chronic disease Obesity Dyslipidemia Psoriasis Osteoarthritis Adrenal adenoma DM type 2 (diabetes mellitus, type 2) IDDM Surgical History History of surgery AVF creation History of intestinal surgery H/O nasal polypectomy History of cataract surgery H/O colonoscopy "2005, hyperplastic polyps repeat in 10 years " S/P appendectomy "1971" S/P cholecystectomy "1971" S/P left oophorectomy "1981" S/P ASH (total abdominal hysterectomy) "For Fibroids " Family History Father Myocardial infarction, Onset Age: 64 Mother , 87 Alzheimer disease Other No family history of adverse response to anesthesia Social History Smoking Status: Current some day smoker Tobacco Type: Cigarettes Cigarettes Per Day: 3; Second Hand Exposure: No; Do You Dip or Chew Tobacco: No; Hx Alcohol Use: No Hx Substance Use: No Preferred Language: Gabonese Communication Ability: Effective Primer Charger 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 Beliefs That Will Affect Care: None marital status: / Current Living Situation: Alone current occupational status: retired Feels Safe at Home: Yes Assistive Devices: Oxygen - Continuous and Walker Review of Systems 2 Review of Systems: On 3 L of oxygen, comfortable Occasional cough. Physical Exam 2 Physical Exam: General- Comfortable , on 3 L oxygen Head- bruise seen on the nose Eyes- PERRL. ENT- oropharynx clear Neck- supple, no JVD. Lungs- clear to auscultation no wheezing or crackles Heart- regular rhythm; no murmur, no gallop. Abdomen- normal bowel sounds, soft, nontender, no distension Extremities- no pretibial edema, bluish discoloration of skin seen on the legs Right upper extremity in dressing and splint Neuro- alert, oriented x 3; PERRL, no facial palsy; no dysarthria; moves extremities Results & Data Vital Signs (Past 12 Hours) Vital Signs Pulse Pulse Resp BP Pulse Ox O2 Del Method O2 Flow Rate 04/02/23 11:24 60 17 98 Nasal Cannula 3 04/02/23 07:08 54 L 04/02/23 06:59 54 L 16 96 Nasal Cannula 3 04/02/23 06:00 51 L 17 98 04/02/23 06:00 115/54 L 04/02/23 05:30 52 L 16 97 04/02/23 05:00 54 L 20 96 04/02/23 04:30 53 L 17 96 04/02/23 04:00 132/59 L 04/02/23 04:00 59 L 23 97 04/02/23 03:30 53 L 17 99 04/02/23 03:16 140/55 L 04/02/23 03:16 55 L 18 97 04/02/23 03:12 142/56 H 04/02/23 03:12 53 L 17 99 04/02/23 03:00 53 L 12 142/56 H 99 04/02/23 02:50 52 L 17 100 04/02/23 02:40 52 L 23 100 04/02/23 02:30 53 L 18 99 04/02/23 02:20 56 L 18 98 04/02/23 02:10 51 L 20 98 04/02/23 02:00 63 13 04/02/23 01:59 71 04/02/23 01:40 53 L 18 04/02/23 01:30 51 L 19 04/02/23 01:30 101/46 L 04/02/23 01:20 52 L 22 04/02/23 01:10 52 L 17 04/02/23 01:00 55 L 19 04/02/23 01:00 104/64 04/02/23 01:00 55 L Laboratory Results 04/02/23 08:17 04/02/23 08:17
--- NOTE | 2023-04-02 15:20 | Hospitalist Progress Note ---
Date of Service April 02, 2023 Assessment & Plan (1) Shortness of breath: Plan: 78-year-old female with past medical history significant for type 2 diabetes, hyperparathyroidism of renal origin, COPD, chronic hypoxic respiratory failure on 3 L oxygen, paroxysmal atrial fibrillation, mesenteric artery stenosis, hypertension, nonrheumatic mitral regurgitation, end-stage renal disease on dialysis, anemia of chronic kidney disease, psoriasis, hypogammaglobinemia, ongoing tobacco abuse presents with shortness of breath and recently diagnosed with COVID. Patient states since last 3 to 4 days she is having COVID symptoms. Shortness of breath COVID 19 infection History of COPD Ongoing tobacco abuse Chronic hypoxic respiratory failure on 3 L oxygen Patient presents with diagnosis COVID-19 infection. Chest x-ray personally reviewed; no infiltrates. Considerable pulmonary edema No increased requirement of oxygen Minimal rhonchi on exam Possible mild COPD exasperation from COVID We will do short course of steroids nebs ATC and as needed Continue home inhalers COVID precautions Close monitor End-stage renal disease On hemodialysis Discussed with nephrology. Patient is on TTS schedule. History of paroxysmal atrial fibrillation Moderate to severe mitral regurgitation On amiodarone History of GI bleed and anemia Patient desires no anticoagulation as per cardiology notes Hypertension On hydralazine and lisinopril Anemia of chronic disease Hemoglobin 10.5 Mild elevation troponin High sensitive troponin elevated to 31; decreased EKG shows sinus rhythm with first-degree AV block; no significant ST or T wave changes. DVT prophylaxis Heparin subcu Disposition Med/tele Full code Please note the above document was generated using voice recognition software. It may contain grammatical, syntax or spelling errors. Any formal questions or concerns about the content, text or information contained within the body of this dictation should be directly addressed to the provider for clarification Admission and Anticipated Discharge Date Admission Date: April 02, 2023 Subjective Patient seen and examined at bedside. Comfortable; not in distress. She reports dry cough. Denies fever, chills, chest pain, shortness of breath, abdominal pain or urinary symptoms. No significant overnight events Review of Systems Review of Systems: All systems reviewed & are unremarkable except as noted in Subjective Physical Exam Physical Exam: Constitutional: WD/WN, vitals as above, NAD, sitting up in bed, pleasant, conversing easily Respiratory: Bilateral basal crackles Cardiovascular: RRR, no murmur, no edema Vessels: no JVD or carotid bruit Chest: normal inspection of chest Abdomen: normal bowel sounds, soft, nontender, no hepatosplenomegaly Musculoskeletal: Fistula in left arm with bruit Skin: no rashes, warm and dry normal turgor Neurologic: PERRL, EOMI, accommodation nl, no face palsy, moves all extremities Psychiatric: A+Ox3, euthymic affect Results & Data Results & Data Vital Signs (Past 12 Hours) Vital Signs Pulse Pulse Resp BP Pulse Ox O2 Del Method O2 Flow Rate 04/02/23 11:24 60 17 98 Nasal Cannula 3 04/02/23 07:08 54 L 04/02/23 06:59 54 L 16 96 Nasal Cannula 3 04/02/23 06:00 51 L 17 98 04/02/23 06:00 115/54 L 04/02/23 05:30 52 L 16 97 04/02/23 05:00 54 L 20 96 04/02/23 04:30 53 L 17 96 04/02/23 04:00 132/59 L 04/02/23 04:00 59 L 23 97 04/02/23 03:30 53 L 17 99 04/02/23 03:16 140/55 L 04/02/23 03:16 55 L 18 97
[2023-04-02] MEDS: FLUTICASONE PROPIONATE NA SPR 16 GM BTL SCH (21:15)
[2023-04-03] MEDS: HEPARIN SOD 5,000 UNIT/0.5 ML VIAL SQ SCH ×3 (05:50→21:24)
[2023-04-03] MEDS: ALBUT/IPRATROP 3MG/0.5MG NEB 3 ML VIAL NEB SCH ×4 (07:44→19:37)
[2023-04-03 07:49] LABS: Basophils # (auto) 0.01 K/uL (0.00-0.20); Basophils % (auto) 0.3 %; Hematocrit (blood only) 27.6 % (37.0-47.0); Hemoglobin 9.1 g/dl (12.0-16.0); Immature Granulocytes # (auto) 0.01 K/uL (0.01-0.20); Immature Granulocytes % (auto) 0.3 %; Lymphocytes # (auto) 0.42 K/uL (1.20-3.40); Lymphocytes % (auto) 11.6 %; Mean Corpuscular Hemoglobin 40.6 pg (25.0-34.0); Mean Corpuscular Volume 123.2 fL (80.0-100.0); Mean Platelet Volume 11.3 fL (9.4-12.4); Monocytes # (auto) 0.35 K/uL (0.11-0.59); Monocytes % (auto) 9.6 %; Neutrophils # (auto) 2.84 K/uL (1.40-6.50); Neutrophils % (auto) 78.2 %; Platelet Count 102 K/uL (130-400); RDW Coefficient of Variation 12.2 % (11.5-14.5); RDW Standard Deviation 55.1 fL (36.4-46.3); Red Blood Count 2.24 M/uL (4.20-5.40); White Blood Count 3.63 K/ul (4.8-10.8)
[2023-04-03 08:00] LABS: BUN Creatinine Ratio 5.2 (10-20); Calcium 8.5 mg/dl (8.6-10.3); Creatinine Clr Calc Pharmacy 11.5 ml/min; Est GFR (African American) 10.4 ml/min; Potassium 3.6 mmol/L (3.5-5.1)
[2023-04-03] MEDS: methylPREDNISolone 40 MG in SYRINGE 0 ML IV SCH (08:03)
[2023-04-03] MEDS: FLUTICASONE/VILANTEROL 200/25MCG 14 PUFFS/INHALER INH SCH (08:04)
[2023-04-03] MEDS: lisinopril 40 MG TAB PO SCH (08:05)
[2023-04-03] MEDS: valACYclovir HCL 500 MG TABLET PO SCH (08:05)
[2023-04-03] MEDS: SEVELAMER HCL 800 MG TABLET PO SCH ×3 (08:06→16:38)
[2023-04-03] MEDS: AMIODARONE 200 MG TAB PO SCH (08:07)
[2023-04-03] MEDS: hydrALAZINE HCL 25 MG TAB PO SCH ×2 (08:10→21:22)
[2023-04-03] MEDS: NEPHROCAPS PO SCH (08:11)
[2023-04-03] MEDS: INSULIN ASPART PER UNIT CHARGE SC SCH ×4 (08:52→21:25)
--- NOTE | 2023-04-03 13:08 | Hospitalist Progress Note ---
Date of Service April 03, 2023 Assessment & Plan (1) Shortness of breath: Plan: 78-year-old female with past medical history significant for type 2 diabetes, hyperparathyroidism of renal origin, COPD, chronic hypoxic respiratory failure on 3 L oxygen, paroxysmal atrial fibrillation, mesenteric artery stenosis, hypertension, nonrheumatic mitral regurgitation, end-stage renal disease on dialysis, anemia of chronic kidney disease, psoriasis, hypogammaglobinemia, ongoing tobacco abuse presents with shortness of breath and recently diagnosed with COVID. Patient states since last 3 to 4 days she is having COVID symptoms. Shortness of breath COVID 19 infection History of COPD Ongoing tobacco abuse Chronic hypoxic respiratory failure on 3 L oxygen Patient presents with diagnosis COVID-19 infection. Chest x-ray personally reviewed; no infiltrates. Pulmonary edema present No increased requirement of oxygen Minimal rhonchi on exam Possible mild COPD exasperation from COVID Continue on IV methylprednisolone. Continue home inhalers COVID precautions Close monitor End-stage renal disease On hemodialysis Discussed with nephrology. Patient is on TTS schedule. History of paroxysmal atrial fibrillation Moderate to severe mitral regurgitation On amiodarone History of GI bleed and anemia Patient desires no anticoagulation as per cardiology notes Hypertension On hydralazine and lisinopril Anemia of chronic disease Hemoglobin at baseline. Mild elevation troponin High sensitive troponin elevated to 31; decreased EKG shows sinus rhythm with first-degree AV block; no significant ST or T wave changes. DVT prophylaxis Heparin subcu Disposition Med/tele. PT OT ordered. Patient lives alone at home. Full code Time spent evaluating patient, direct bedside care, chart review, placing orders, interpretation of diagnostic studies, discussion with consultants, patient, and family members, as well as other required patient management activities is 50 minutes Please note the above document was generated using voice recognition software. It may contain grammatical, syntax or spelling errors. Any formal questions or concerns about the content, text or information contained within the body of this dictation should be directly addressed to the provider for clarification Admission and Anticipated Discharge Date Admission Date: April 02, 2023 Subjective Patient seen and examined at bedside. Comfortable; not in distress. No shortness of breath or cough. Denies fever, chills, chest pain,abdominal pain or urinary symptoms. No significant overnight events Review of Systems Review of Systems: All systems reviewed & are unremarkable except as noted in Subjective Physical Exam Physical Exam: Constitutional: WD/WN, vitals as above, NAD, sitting up in bed, pleasant, conversing easily Respiratory: Bilateral clear breath sounds Cardiovascular: RRR, no murmur, no edema Vessels: no JVD or carotid bruit Chest: normal inspection of chest Abdomen: normal bowel sounds, soft, nontender, no hepatosplenomegaly Musculoskeletal: Fistula in left arm with bruit Skin: no rashes, warm and dry normal turgor Neurologic: PERRL, EOMI, accommodation nl, no face palsy, moves all extremities Psychiatric: A+Ox3, euthymic affect Results & Data Results & Data Vital Signs (Past 12 Hours) Vital Signs Temp Pulse Pulse Pulse Resp BP Pulse Ox 04/03/23 12:06 36.7 C 62 18 109/55 L 94 04/03/23 11:15 60 18 92 04/03/23 08:15 04/03/23 07:44 55 L 18 95 04/03/23 07:30 55 L 04/03/23 07:20 37.1 C 58 L 16 111/55 L 96 04/03/23 02:59 62 16 98/58 L 95 O2 Del Method O2 Flow Rate 04/03/23 12:06 Room Air 3 04/03/23 11:15 Nasal Cannula 3 04/03/23 08:15 Nasal Cannula 3 04/03/23 07:44 Nasal Cannula 3 04/03/23 07:30 04/03/23 07:20 Nasal Cannula 3 04/03/23 02:59 Nasal Cannula 3.5
[2023-04-03] MEDS: FLUTICASONE PROPIONATE NA SPR 16 GM BTL SCH (21:21)
--- NOTE | 2023-04-03 21:24 | Electrocardiogram Report ---
Test Reason : Blood Pressure : / mmHG Vent. Rate : 060 BPM Atrial Rate : 060 BPM P-R Int : 214 ms QRS Dur : 102 ms QT Int : 476 ms P-R-T Axes : 077 050 056 degrees QTc Int : 476 ms Sinus rhythm with 1st degree A-V block Low voltage QRS Septal infarct (cited on or before 12-MAY-2022) Nonspecific ST abnormality Abnormal ECG When compared with ECG of 12-MAY-2022 06:12, No significant change was found Confirmed by Willie Castro ([id number]) on 04/03/2023 9:24:28 PM Referred By: REFERRED SELF Confirmed By:Willie Csatro
[2023-04-04] MEDS: HEPARIN SOD 5,000 UNIT/0.5 ML VIAL SQ SCH ×3 (05:43→20:41)
[2023-04-04] MEDS: ALBUT/IPRATROP 3MG/0.5MG NEB 3 ML VIAL NEB SCH ×4 (07:37→19:51)
[2023-04-04] MEDS: hydrALAZINE HCL 25 MG TAB PO SCH ×2 (07:57→20:38)
[2023-04-04] MEDS: AMIODARONE 200 MG TAB PO SCH (07:57)
[2023-04-04] MEDS: NEPHROCAPS PO SCH (07:58)
[2023-04-04] MEDS: SEVELAMER HCL 800 MG TABLET PO SCH ×3 (07:58→17:45)
[2023-04-04] MEDS: lisinopril 40 MG TAB PO SCH (07:58)
[2023-04-04] MEDS: FLUTICASONE/VILANTEROL 200/25MCG 14 PUFFS/INHALER INH SCH (07:59)
[2023-04-04] MEDS: methylPREDNISolone 40 MG in SYRINGE 0 ML IV SCH (08:00)
[2023-04-04] MEDS: INSULIN ASPART PER UNIT CHARGE SC SCH ×4 (08:01→20:41)
[2023-04-04] MEDS: valACYclovir HCL 500 MG TABLET PO SCH (08:07)
--- NOTE | 2023-04-04 10:47 | Nephrology Progress Note ---
Date of Service April 04, 2023 Assessment & Plan Admission and Anticipated Discharge Date Admission Date: April 02, 2023 Subjective Assessment & Plan (1) ESRD (end stage renal disease): ESRD on HD. TThSat She will be dialyzed tomorrow for 4 hrs and take 3-4 kilo as tolerated. Will try to optimize her volume status which would help her breathing. Continue on outpatient medications. Also lower her EDW for Outpt. (2) Shortness of breath: Likely sequelae of previous COVID infection S--Feels breathing better than Admission. On 3 liters o2 same as home. AVF fine. No issues with Dialysis On Tuesday Physical Exam Physical Exam: Constitutional: vitals as above, sitting up in bed, pleasant, conversing easily Respiratory: Bilateral rhonic and Prolonged exp Cardiovascular: RRR, no murmur, 1+ edema no JVD Abdomen: soft, nontender, Musculoskeletal: Fistula in left arm with bruit Skin: no rashes, warm and dry normal turgor Neurologic: PERRL, EOMI, accommodation nl, no face palsy, moves all extremities Psychiatric: A+Ox3, euthymic affect Results & Data Vital Signs (Past 12 Hours) Vital Signs Temp Pulse Pulse Resp BP Pulse Ox O2 Del Method 04/04/23 10:36 57 L 18 93 Nasal Cannula 04/04/23 09:44 Nasal Cannula 04/04/23 07:55 36.6 C 56 L 16 115/56 L 93 Nasal Cannula 04/04/23 07:38 62 18 7 L Nasal Cannula 04/04/23 05:56 56 L 04/04/23 03:06 36.8 C 60 16 114/57 L 97 Nasal Cannula 04/03/23 23:09 37.1 C 66 18 112/56 L 94 Room Air O2 Flow Rate 04/04/23 10:36 3 04/04/23 09:44 3 04/04/23 07:55 3 04/04/23 07:38 3 04/04/23 05:56 04/04/23 03:06 04/03/23 23:09
--- NOTE | 2023-04-04 12:36 | Hospitalist Progress Note ---
Date of Service April 04, 2023 Assessment & Plan (1) Shortness of breath: Plan: 78-year-old female with past medical history significant for type 2 diabetes, hyperparathyroidism of renal origin, COPD, chronic hypoxic respiratory failure on 3 L oxygen, paroxysmal atrial fibrillation, mesenteric artery stenosis, hypertension, nonrheumatic mitral regurgitation, end-stage renal disease on dialysis, anemia of chronic kidney disease, psoriasis, hypogammaglobinemia, ongoing tobacco abuse presents with shortness of breath and recently diagnosed with COVID. Patient states since last 3 to 4 days she is having COVID symptoms. Shortness of breath COVID 19 infection History of COPD Ongoing tobacco abuse Chronic hypoxic respiratory failure on 3 L oxygen Patient presents with diagnosis COVID-19 infection. Chest x-ray personally reviewed; no infiltrates. Pulmonary edema present No increased requirement of oxygen Minimal rhonchi on exam Possible mild COPD exasperation from COVID Continue on IV methylprednisolone. Plan to transition her to oral at discharge. Continue home inhalers COVID precautions Close monitor End-stage renal disease On hemodialysis Discussed with nephrology. Patient is on TTS schedule. History of paroxysmal atrial fibrillation Moderate to severe mitral regurgitation On amiodarone History of GI bleed and anemia Patient desires no anticoagulation as per cardiology notes Hypertension On hydralazine and lisinopril Anemia of chronic disease Hemoglobin at baseline. Mild elevation troponin High sensitive troponin elevated to 31; decreased EKG shows sinus rhythm with first-degree AV block; no significant ST or T wave changes. DVT prophylaxis Heparin subcu Disposition Med/tele. PT OT ordered. Patient lives alone at home. Recommended rehab; case management on board. Full code Please note the above document was generated using voice recognition software. It may contain grammatical, syntax or spelling errors. Any formal questions or concerns about the content, text or information contained within the body of this dictation should be directly addressed to the provider for clarification Admission and Anticipated Discharge Date Admission Date: April 02, 2023 Subjective Patient seen and examined at bedside. Comfortable; not in distress. Reports tiredness and fatigue Denies fever, chills, chest pain, shortness of breath, abdominal pain or urinary symptoms. No significant overnight events Review of Systems Review of Systems: All systems reviewed & are unremarkable except as noted in Subjective Physical Exam Physical Exam: Constitutional: WD/WN, vitals as above, NAD, sitting up in bed, pleasant, conversing easily Respiratory: Bilateral clear breath sounds Cardiovascular: RRR, no murmur, no edema Vessels: no JVD or carotid bruit Chest: normal inspection of chest Abdomen: normal bowel sounds, soft, nontender, no hepatosplenomegaly Musculoskeletal: Fistula in left arm with bruit Skin: no rashes, warm and dry normal turgor Neurologic: PERRL, EOMI, accommodation nl, no face palsy, moves all extremities Psychiatric: A+Ox3, euthymic affect Results & Data Results & Data Vital Signs (Past 12 Hours) Vital Signs Temp Pulse Pulse Resp BP Pulse Ox O2 Del Method 04/04/23 11:42 36.8 C 64 18 121/66 91 Nasal Cannula 04/04/23 10:36 57 L 18 93 Nasal Cannula 04/04/23 09:44 Nasal Cannula 04/04/23 07:55 36.6 C 56 L 16 115/56 L 93 Nasal Cannula 04/04/23 07:38 62 18 7 L Nasal Cannula 04/04/23 05:56 56 L 04/04/23 03:06 36.8 C 60 16 114/57 L 97 Nasal Cannula O2 Flow Rate 04/04/23 11:42 3 04/04/23 10:36 3 04/04/23 09:44 3 04/04/23 07:55 3 04/04/23 07:38 3 04/04/23 05:56 04/04/23 03:06
[2023-04-04] MEDS: FLUTICASONE PROPIONATE NA SPR 16 GM BTL SCH (20:38)
[2023-04-05] MEDS: HEPARIN SOD 5,000 UNIT/0.5 ML VIAL SQ SCH ×2 (05:57→13:24)
[2023-04-05] MEDS ORDERED: EPOETIN ALFA 10,000 UNITS/ML VIAL IV ONE (07:00)
[2023-04-05] MEDS ORDERED: SODIUM CHLORIDE 0.9% 1,000 ML IV PRN ×2 (07:00→07:46)
[2023-04-05 07:36] LABS: Basophils # (auto) 0.01 K/uL (0.00-0.20); Basophils % (auto) 0.2 %; Eosinophils # (auto) 0.01 K/uL (0.00-0.50); Eosinophils % (auto) 0.2 %; Hematocrit (blood only) 25.5 % (37.0-47.0); Hemoglobin 8.6 g/dl (12.0-16.0); Immature Granulocytes # (auto) 0.04 K/uL (0.01-0.20); Lymphocytes # (auto) 0.65 K/uL (1.20-3.40); Lymphocytes % (auto) 15.8 %; Mean Corpuscular Hgb Conc 33.7 g/dL (32.0-36.0); Mean Corpuscular Volume 121.4 fL (80.0-100.0); Mean Platelet Volume 11.1 fL (9.4-12.4); Monocytes # (auto) 0.33 K/uL (0.11-0.59); Neutrophils # (auto) 3.08 K/uL (1.40-6.50); Neutrophils % (auto) 74.8 %; Platelet Count 111 K/uL (130-400); RDW Coefficient of Variation 12.2 % (11.5-14.5); RDW Standard Deviation 54.6 fL (36.4-46.3); White Blood Count 4.12 K/ul (4.8-10.8)
[2023-04-05] MEDS: INSULIN ASPART PER UNIT CHARGE SC SCH ×2 (07:53→12:18)
[2023-04-05] MEDS: ALBUT/IPRATROP 3MG/0.5MG NEB 3 ML VIAL NEB SCH ×3 (07:58→15:07)
[2023-04-05] MEDS: SEVELAMER HCL 800 MG TABLET PO SCH ×2 (08:00→13:24)
[2023-04-05 08:26] LABS: Albumin Globulin Ratio 1.4 (0.9-2); Albumin Level 3.1 gm/dl (3.4-5.0); BUN Creatinine Ratio 7.7 (10-20); Bilirubin,Total 0.4 mg/dl (0.2-1.0); Calcium 8.6 mg/dl (8.6-10.3); Creatinine Clr Calc Pharmacy 5.4 ml/min; Est GFR (African American) 4.1 ml/min; Est GFR (Non-African American) 3.5 ml/min; Globulin 2.2 gm/dl (2.5-4.0); Potassium 4.7 mmol/L (3.5-5.1); Total Protein 5.3 gm/dl (6.0-8.3)
--- NOTE | 2023-04-05 10:13 | Dialysis Progress Note ---
Date of Service April 05, 2023 Assessment & Plan Admission and Anticipated Discharge Date Admission Date: April 02, 2023 Subjective Assessment & Plan (1) ESRD (end stage renal disease): ESRD on HD-TTS She will be dialyzed for 3.5 to 4 hrs and take 3-4 kilo as tolerated. Will try to optimize her volume status which would help her breathing. Continue on outpatient medications. Also lower her EDW for Outpt. (2) Shortness of breath: Likely sequelae of previous COVID infection S- Seen during Dialysis. Tolerating fine. -Feels breathing better than Admission. On 3 liters o2 same as home. AVF fine. No issues with Dialysis so far. BP also fine Physical Exam Physical Exam: Constitutional: vitals as above, sitting up in bed, pleasant, conversing easily Respiratory: Bilateral rhonic and Prolonged exp Cardiovascular: RRR, no murmur, 1+ edema no JVD Abdomen: soft, nontender, Musculoskeletal: Fistula in left arm with bruit Skin: no rashes, warm and dry normal turgor Neurologic: PERRL, EOMI, accommodation nl, no face palsy, moves all extremities Psychiatric: A+Ox3, euthymic affect Results & Data Vital Signs (Past 12 Hours) Vital Signs Temp Pulse Pulse Pulse Resp BP BP 04/05/23 10:00 60 100/44 L 04/05/23 09:30 60 107/46 L 04/05/23 09:01 57 L 118/46 L 04/05/23 08:40 36.5 C 58 L 124/46 L 04/05/23 08:30 36.5 C 58 L 04/05/23 07:58 62 17 04/05/23 07:48 36.5 C 58 L 18 124/54 L 04/05/23 07:27 58 L 04/05/23 03:56 36.5 C 61 18 125/66 04/04/23 23:00 59 L Pulse Ox O2 Del Method O2 Flow Rate 04/05/23 10:00 04/05/23 09:30 04/05/23 09:01 04/05/23 08:40 04/05/23 08:30 04/05/23 07:58 96 Nasal Cannula 3 04/05/23 07:48 100 Nasal Cannula 3 04/05/23 07:27 04/05/23 03:56 95 Nasal Cannula 3 04/04/23 23:00
--- NOTE | 2023-04-05 13:15 | Discharge Summary ---
Date of Service April 05, 2023 Admission HPI Per Admitting Provider 78-year-old female with past medical history significant for type 2 diabetes, hyperparathyroidism of renal origin, COPD, chronic hypoxic respiratory failure on 3 L oxygen, paroxysmal atrial fibrillation, mesenteric artery stenosis, hypertension, nonrheumatic mitral regurgitation, end-stage renal disease on dialysis, anemia of chronic kidney disease, psoriasis, hypogammaglobinemia, ongoing tobacco abuse presents with shortness of breath and recently diagnosed with COVID. Patient states since last 3 to 4 days she is having COVID symptoms. Having cough, shortness of breath, chills and diarrhea. Diarrhea improved with Imodium. Feeling weak. Lives alone. Ambulates with walker. Did not feel safe to go home. Her oxygen requirements did not increase. Appetite is okay. Denies any chest pain. No nausea. No abdominal pain. Currently resting comfortably and hemodynamically stable. Somewhat hard to hear. Past medical history. As mentioned above Past surgical history. Colonoscopy. EGD. EGD with endoscopic ultrasound. Lasering of the secondary cataract. Appendectomy. Cholecystectomy. Total abdominal hysterectomy with removal of tubes Social history. . Lives alone. Used to smoke 1 pack a day but lately smoking only if 3 to 8 cigarettes daily. Smoking since last 50 years. No alcohol use. No drug use. Family history. Mother had arthritis. Diabetes. Father had diabetes. Heart disorder. Brother had diabetes. Brother on dialysis. Admission Exam Per Admitting Provider General- Not in distress. Head- atraumatic Eyes- PERRL. ENT- oropharynx clear Neck- supple, no JVD. Lungs- clear to auscultation very mild b/l rhonchi Heart- regular rhythm; no murmur, no gallop. Abdomen- normal bowel sounds, soft, nontender, no distension. Extremities- no pretibial edema, no erythema seen. Neuro- alert, oriented x 3; PERRL, no facial palsy; no dysarthria; moves extremities. Skin- warm & dry Principal Diagnosis COVID-19 infection COPD exacerbation Discharge Exam Constitutional: WD/WN, vitals as above, NAD, sitting up in bed, pleasant, conversing easily Respiratory: Bilateral clear breath sounds Cardiovascular: RRR, no murmur, no edema Vessels: no JVD or carotid bruit Chest: normal inspection of chest Abdomen: normal bowel sounds, soft, nontender, no hepatosplenomegaly Musculoskeletal: Fistula in left arm with bruit Skin: no rashes, warm and dry normal turgor Neurologic: PERRL, EOMI, accommodation nl, no face palsy, moves all extremities Psychiatric: A+Ox3, euthymic affect Discharge Data Allergies Allergy/AdvReac Type Severity Reaction Status Date / Time chlorhexidine Allergy Intermediate ITCHING Verified 04/01/23 17:29 Consultations 04/01/23 20:11 ED Decision to Admit Stat 04/02/23 08:00 Consult Nephrology Routine Hospital Course (1) Shortness of breath: 78-year-old female with past medical history significant for type 2 diabetes, hyperparathyroidism of renal origin, COPD, chronic hypoxic respiratory failure on 3 L oxygen, paroxysmal atrial fibrillation, mesenteric artery stenosis, hypertension, nonrheumatic mitral regurgitation, end-stage renal disease on dialysis, anemia of chronic kidney disease, psoriasis, hypogammaglobinemia, ongoing tobacco abuse presents with shortness of breath and recently diagnosed with COVID. Patient states since last 3 to 4 days she is having COVID symptoms. Shortness of breath COVID 19 infection COPD exacerbation Ongoing tobacco abuse Chronic hypoxic respiratory failure on 3 L oxygen Patient presents with diagnosis COVID-19 infection. Chest x-ray personally reviewed; no infiltrates. Pulmonary edema present No increased requirement of oxygen During the hospitalization, patient was treated with [id number] DuoNebs, steroids. Her oxygen requirement remained stable throughout the hospitalization. She was discharged on 2 more days of steroid to finish the course. No other medication changes were done. Patient to follow-up with PCP and resume regular hemodialysis on TTS. Please note the above document was generated using voice recognition software. It may contain grammatical, syntax or spelling errors. Any formal questions or concerns about the content, text or information contained within the body of this dictation should be directly addressed to the provider for clarification Total Time Total Time Spent Total Time Spent (In Minutes): 45 Total Time Includes: Examination of the Patient, Discharge Planning, Medication Reconciliation, Communication With Other Providers and Other Discharge Plan Discharge Items Patient Disposition: Home - Self-Care Reason For Visit: SOB, COVID Discharge Diagnosis: COVID-19 infection COPD exacerbation Activity: Resume your previous activity Non-emergency contact: Primary Care Provider Call non-emergency contact if: you have any medication questions and your symptoms worsen Follow-up/Referrals: Noam Armando MD [Primary Care Provider] - (Date & Time 04/11/2023 10:40 AM Provider Nadiya Blackwell PA-C Department Family Medicine [facility] ) Diet: Dialysis Renal Addtl Attending Provider Instructions: You were admitted to the hospital due to his COVID-19 infection. You are also found to have COPD exacerbation likely due to the infection. You are prescribed prednisone 40 mg to be taken for 2 more days to complete the steroid course. An appointment with your primary care doctor will be set up. Pending Studies at Discharge: No Stand-Alone Forms: My [facility] Einspect, Smoking Cessation Medications and DC Order Prescriptions: New prednisone 20 mg tablet 40 mg PO DAILY 2 Days Qty: 4 0RF Continued ipratropium-albuterol 0.5 mg-3 mg(2.5 mg base)/3 mL Solution For Nebulization 3 ml INHALATION QID PRN (Reason: Shortness Of Breath) Arabella-Tika 0.8 mg tablet 1 tab PO QAM fluticasone propionate 50 mcg/actuation Winton,Suspension 2 spray INTRANASAL HS sevelamer carbonate 800 mg tablet 1,600 mg PO TIDM Rx Instructions: and 1 tab with snacks PER GMG. albuterol sulfate 90 mcg/actuation Hfa Aerosol Inhaler 2 puff INHALATION Q4H PRN (Reason: Wheezing) acetaminophen [Tylenol] 325 mg Tablet 650 mg PO Q6H PRN (Reason: Pain) loperamide [Imodium A-D] 2 mg Capsule 2 mg PO QID PRN (Reason: Diarrhea) lidocaine-prilocaine 2.5-2.5 % Cream 1 applic topical DIRECTED PRN (Reason: PRIOR TO DIALYSIS) Rx Instructions: APPLY SMALL AMT TO ACCESS SITE 1-2 HOURS PRIOR TO DIALYSIS. cover with occlusive dressing (saran wrap) camphor-menthol 0.5-0.5 % Lotion 1 applic TOPICAL DIRECTED PRN (Reason: Itching) lisinopril 40 mg Tablet 40 mg PO 4XWK Rx Instructions: ONLY ON NON-DIALYSIS DAYS, SUN, MON, WED, & FRI. Procrit 10,000 unit/mL Solution 0 unit IV DIRECTED Rx Instructions: PER DIALYSIS valacyclovir 1 gram tablet 1,000 mg PO QAM fluorometholone 0.1 % drops,suspension 1 drp OPL QAM hydralazine 25 mg tablet 37.5 mg PO BID Rx Instructions: ORDERED 50 MG BID PER GMG, PER GMG NOTE--1 1/2 TABS BID. fluticasone furoate-vilanterol [Breo Ellipta] 200-25 mcg/dose Blister With Device 1 inh INHALATION DAILY docusate sodium [Colace] 100 mg capsule 100 mg PO BID PRN (Reason: Constipation) amiodarone 200 mg Tablet 200 mg PO DAILY 30 Days Qty: 60 0RF Discharge Orders: Discharge Order (Routine); Ordered 04/05/23 Ordered By: Chucho Chan Admission Data Admit Date/Time: 04/02/23 00:10 Attending Provider: Chucho Chan Admit Provider: Cameron Thakur Primary Care Provider: Noam Armando Other Providers: Cameron Thakur; Jessica Reed; Charli Rodriguez; Dee Dee Henley Japheth E.; Kayleigh Marie
[2023-04-05] MEDS: AMIODARONE 200 MG TAB PO SCH (13:19)
[2023-04-05] MEDS: hydrALAZINE HCL 25 MG TAB PO SCH (13:22)
[2023-04-05] MEDS: FLUTICASONE/VILANTEROL 200/25MCG 14 PUFFS/INHALER INH SCH (13:22)
[2023-04-05] MEDS: valACYclovir HCL 500 MG TABLET PO SCH (13:23)
[2023-04-05] MEDS: NEPHROCAPS PO SCH (13:23)
[2023-04-05] MEDS: methylPREDNISolone 40 MG in SYRINGE 0 ML IV SCH (13:23)
== END 2023-04-05 17:52 | disposition home or self-care (01) | DRG 177 ==
LOC: ED 16:40 → EDINP 04-02 00:10 → 2N 04-02 00:25

== ENCOUNTER 2024-01-24 06:42 | Inpatient (IN) ==
--- OUTSIDE RECORDS SUMMARY | 2024-01-24 07:12 | External Medical Summary | Summary of Care ---
Author Name Unknown Organization [facility] Address [address] [facility] [address] Phone [phone] Care Team Providers Care Marketing Administrator Name Role Phone Noam Armando MD Primary Care Provide r Encounter Details Date Type Department Care Team (Late st Contact Info) Description 01/02/2024 Telephone [facility], [facility] [address] [facility] [place] [phone] Rhina Santa RN [address] [facility] [place] [address] Allergies Active Allergy Reactions Criticality Noted Date Comments Chlorhexidine Itching Medium 01/03/2019 documented as of this encounter (statuses as of 01/02/2024) Medications Medication Sig Dispensed Refills Start Date End Date Status PROCRIT 85141 UNIT/ML IJ SOLN Per dialysis clinic Active albuterol (VENTOLIN HFA) 108 (90 BASE) MCG/ACT inhalerIndicatio ns:COPD, moderate (HCC) Inhale 2 Puffs by mouth every 4 hours as needed for Wheezing. 1 Inhaler 5 02/24/2015 Active oxygen GAS Use 3 L/min(Oxygen) as directed. At bedtime and as needed during the day-patient reports oxygen is continuous 07/17/2016 Active Acetaminophen 325 MG Oral Tablet Take 2 Tablets by mouth every 6 hours as needed for Pain. Active valACYclovir (VALTREX) 1000 MG Tablet Take 1 Tablet by mouth in the morning. 4 09/30/2016 Active Camphor-Menthol 0.5-0.5 % External Lotion Apply topically to affected area as needed for Itching. Apply to affected areas as needed 12/28/2016 Active Loperamide HCl 2 MG Oral Capsule Take 1 Capsule by mouth 4 times a day as needed for Diarrhea. Active lidocaine-priloc macho (EMLA) 2.5-2.5 % cream APPLY SMALL AMOUNT TO ACCESS SITE 1 TO 2 HOURS BEFORE DIALYSIS. COVER WITH OCCLUSIVE DRESSING (SARAN WRAP). 30 g 11 03/01/2017 Active Fluorometholone 0.1 % Ophthalmic Suspension 1 Drop. 1 drop left eye 07/28/2021 Active Fluticasone Propionate 50 MCG/ACT Nasal Suspension (Flonase) USE 2 SPRAYS IN EACH NOSTRIL DAILY 48 mL 3 08/16/2022 Active Arabella-Tika Oral Tablet Take by mouth daily. Active Ipratropium-Albu terol 0.5-2.5 (3) MG/3ML Inhalation Solution (Duoneb)Indicati ons:COPD, moderate ([facility]) INHALE 1 UNIT DOSE VIA NEBULIZER 4 TIMES A DAY NEEDED. DX: J44.9 (PATIENT CURRENTLY USING 1-2 TIMES PER DAY.) 360 mL 5 04/18/2023 Active Lidocaine 5 % External Patch (Lidoderm) Place 1 Patch over 12 hours topically on the skin daily. Apply to affected area 30 Patch 05/30/2023 Active Additional Information Patient not taking.Informant: Patient, Reported on 11/25/2023 Mediastream Mini w/Device KitIndications:T ype 2 diabetes, HbA1C goal < 8% ([facility]) test blood sugar up to 3 times daily 1 Kit 07/13/2023 Active Additional Information Patient not taking.Informant: Patient, Reported on 11/25/2023 Lancets Use to test blood sugars up to three times a day 200 Each 1 07/13/2023 Active Additional Information Patient not taking.Informant: Patient, Reported on 11/25/2023 Lanthanum Carbonate 500 MG Oral Tablet Chewable (Fosrenol) Take 1 Tablet by mouth in the morning and 1 Tablet at noon and 1 Tablet in the evening. Take with meals. Active Midodrine HCl 2.5 MG Oral Tablet (Proamatine) Take 1 Tablet by mouth. Take 1 tablet 1 hour prior to end of dialysis 3 times a week Active OneTouch Ultra In Vitro Strip (Glucose Blood)Indication s:Type 2 diabetes, HbA1C goal < 8% ([facility]) TEST BLOOD SUGAR 3 TIMES DAILY DX E11.9 300 Strip 1 10/04/2023 Active Amiodarone HCl 200 MG Oral Tablet (Cordarone)Indic ations:Hypertens alonso heart and kidney disease with chronic diastolic congestive heart failure and stage 5 chronic kidney disease on chronic dialysis ([facility]) Take 1 Tablet by mouth in the morning. 90 Tablet 3 10/18/2023 Active Fluticasone Furoate-Vilanter ol 200-25 MCG/ACT Inhalation Aerosol Powder Breath Activated (BREO ellipta) Inhale 1 Puff by mouth in the morning. 60 Blister Dosing Unit 11 01/02/2024 Active Fluticasone Furoate-Vilanter ol 200-25 MCG/ACT Inhalation Aerosol Powder Breath Activated (BREO ellipta) Inhale 1 Puff by mouth in the morning. 60 Blister Dosing Unit 11 01/16/2023 Discontinue d(Refill) documented as of this encounter (statuses as of 01/02/2024) Active Problems Problem Noted Date Diagnosed Date [...] atrial fibrillation 01/21/2016 Renal cyst, right 10/13/2015 ESRD (end stage renal disease) on dialysis 09/24 Dialysis patient 07/27/2013 A-V fistula 01/19/2012 Type [...] as of this encounter (statuses as of 01/02/2024) Resolved Problems Problem Noted Date Diagnosed Date [...] as of this encounter (statuses as of 01/02/2024) Immunizations Name Administration Dates Next Due COVID-19 mRNA, LNP-s, No Pre serve, 2-Dose Series (LAN-Power) 02/12/2021,05/22/2020,05/01/2020 COVID-19, mRNA, LNP-s, PF, B ooster, 100mcg/0.5mg (Moderna) 08/04/2021 Covid-19, Mrna, Lnp-s, Pf, B ivalent, 50 Mcg, IM, 12 yrs and above (Moderna) 01/07/2022 Hepatitis B, 20+ yrs 11/08/2017,07/13/19 18,06/07/2017,05/10,08/14/2015,05/15/2015,04/10/2015 Pneumococcal Conjugate Vacc, 13 Valent (Prevnar) 02/24/2015 Pneumococcal Polysaccharide PPV23 (Pneumovax) 09/04/2012,08/24/2005 Seasonal Influenza Vac., MDV , IM, 0.5 mL (Fluzone) 12/26/2014,01/09/2014,01/08/2013,01/19,01/12/2011,01/27/2010,12/05/2008 ,02/24/2007 Seasonal Influenza Virus Vac cine, Unspecified Formulation 12/13/2018,12/14/2017,01/21/2016,01/09,01/08/2013,01/20/2012,01/12/2011 ,01/27/2010,12/05/2008,02/24/2007,07/2003,01/31/2003,02/21/2002 Seasonal Influenza, High Dos e, Trivalent, PF, IM (Fluzone HD) 01/17/2020 Seasonal Influenza, PF, 6 M & above, IM , (FluLaval or Fluzone) 12/21/2016 Seasonal Influenza, Quadriva lent Hd (Fluzone Hd) 12/03/2022(Deferred: Patient Refused - Dr. Jose Rafael Rocha, patient recieves from [facility] nurse later in season),12/15/2021,12/30/2020 Seasonal Influenza, Quadriva lent, No Preserve, IM 12/13/2018,12/14/2017,01/21/2016 TDAP (age 10 and older)(Boostrix) 08/04/2010 TDAP, Age 7 and older, IM (Adacel) 08/04,12/05/2008(Deferred: Patient Refused) Varicella Zoster Vaccine (Adult) 01/09/2013 [...] Gender Identity Not on file Sexual Orientation Straight 05/30/2023 3: 30 PM EST Job Start Date Occupation Industry Not on [...] encounter Miscellaneous Notes * Telephone Encounter - Melissa Ruiz PA-C - 01/02/2024 10:06 PM EDTSigned Prescriptions: Disp Refills Fluticasone Furoate-Vilanterol 200-25 MCG/*60 Bli*11 Sig: Inhale1 Puff by mouth in the morning.Authorizing Provider: MELISSA RUIZ * Telephone Encounter - Rhina Santa RN - 01/02/2024 2:23 PM EDT Phone call from patient requesting refill on her Breo Ellipta Medication pended DOROTHY Hutchinson Registered Nurse Navigator Triage [facility] documented in this encounter Plan of Treatment Upcoming Encounters Date Type Department Care Team (Late st Contact Info) Description 02/03/2024 4:00 PM EST Home Visit [facility], [facility] [address] [place] [phone] Elly Honeycutt RN [address] [place] [phone] 04/06/2024 12:20 PM EST Office Visit Family [address] [phone] Nadiya Blackwell PA-C [address] [place] [address] [place] [phone] 10/19/2024 1:40 PM EDT Office Visit Family [address] [phone] Noam Armando MD [address] [place] [address] [place] [phone] Health Maintenance Due Date Last Done Comments DISCUSS TOBACCO CESSATION (REFER TO SMARTSET #[id number]) 1945 Alpha-1 Antitrypsin 1965 Adult Wellness Visit 2013 Zoster Vaccines (2 of 3) 03/06/2013 01/09/2013 *ADVANCE DIRECTIVE NOT ON FILE 05/11/2019 Diabetic Foot Exam 04/27/2020 04/27/2019, 1 , 03/14/2017, Additional history exists DTap/Tdap Vaccines (3 - Td or Tdap) 08/04/2020 08/04/2010, 08/04/2010 Depression Screening 11/08/2020 11/09/2019 COVID-19 Vaccine ( season) 2023 01/07/2022, 08/04/2021, 02/12/2021, Additional history exists Influenza Vaccine (FLU shot) (#1) 2023 01/04/2023, 12/15/2021, 12/30/2020, Additional history exists HbA1c 04/05/2024 10/04/2023, 07/0 09/2022, 04/22/2021, Additional history exists Diabetic Eye Exam 05/25/2024 05/26/2023, , 11/13/2020, Additional history exists O2 ASSESSMENT COMPLETED IN PAST YEAR FOR COPD 11/24/2024 11/25/2023 Fecal Occult Blood Test Discontinued 09/15/2000 Pneumococcal Vaccine: 65+ Years Completed 02/24/2015, 09/04/2012, 08/24/2005 Colonoscopy Discontinued 08/27/2020, 04/29, 01/31/2006 Colorectal Cancer Screening Discontinued RETIRED - COLONOSCOPY-EVERY 5 YRS AGES 18-100 Discontinued 08/27/2020, 05/21/2015, 01/31/2006 Cologuard Discontinued HPV (Gardasil) Vaccine Aged Out No lo nger eligible based on patient's age to complete this topic MENINGOCOCCAL (MENACTRA/MENVEO) Aged Out No longer eligible based on patient's age to complete this topic Sigmoidoscopy Discontinued documented as of this encounter Medical Devices Implanted Type Area Product Handler Device Identifier Shelf Expiration Date Model / Serial / Lot [employer]_Vortx Lizzette - 18_5 Mm X 5.5 Mm Implanted:Qty: 1 on 07/01/2017 by Harsha Vázquez MD at RADIOLOGY [facility] N/A: Abdomen [employer] : INTRV RAD 08/10/2019 [id number] / [id number] / [id number] Description:VortX Lizzette - 18 ([employer]). 5 mm x 5.5 mm. GTIN: [id number]. Ref: [id number]. Lot: [id number]. Exp: 08/10/2019 [facility]_Tornado Embolization Microcoil_4/2 Implanted:Qty: 2 on 07/01/2017 by Harsha Vázquez MD at RADIOLOGY [facility] N/A: Abdomen COOK : INTRV RAD 09/06/2021 [id number] / [id number]-18S- 4/2-TORNA DO / [id number] Description:Tornado Emboliza tion Microcoil ([employer]). Ref: [id number]/-[id number]. Ref: [id number]. Lot: [id number]. Exp: 09/06/2021. [employer]_Vortx Lizzette - 18_5 Mm X 5.5 Mm Implanted:Qty: 4 on 07/01/2017 by Harsha Vázquez MD at RADIOLOGY [facility] N/A: Abdomen [employer] : INTRV RAD 07/25/2018 [id number] 50 / [id number] / [id number] Description:VortX Lizzette - 18 ([employer]). 5 mm x 5.5 mm. GTIN: [id number]. Ref: [id number]. Lot: [id number]. Exp: 07/25/2018 [employer]_Tornado Embolization Microcoil_7/3 Implanted:Qty: 2 on 07/01/2017 by Harsha Vázquez MD at RADIOLOGY [facility] N/A: Abdomen COOK : INTRV RAD 09/09/2021 [id number] / [id number]-18S- 7/3-TORNA DO / [id number] Description:Tornado Emboliza tion Microcoil ([employer]). Ref: [id number]/3-[id number]. Ref: [id number]. Lot: [id number]. Exp: 09/09/2021. documented as of this encounter Additional Health Concerns Infection Onset Date Last Indicated Resolved Time C. difficile 12/20/2023 12/20/2023 documented as of this encounter Advance Directives * Full Code (Latest Code Status on File) Date Activated Date Inactivated Comments 07/01/2017 4:30 PM 07/09/2017 7:22 PM This order re flects the patients wishes and were consensually agreed upon. Question Answer Comments Discussion of Advance Directives occurred with: Not Discussed * Full Code Date Activated Date Inactivated Comments 01/28/2012 10:38 AM 01/28/2012 7:55 PM This order reflects the patients wishes and were consensually agreed upon. Question Answer Comments Discussion of Advance Directives occurred with: Not Discussed * Full Code Date Activated Date Inactivated Comments 08/19/2011 12:47 PM 08/19/2011 6:22 PM This order reflects the patients wishes and were consensually agreed upon. Question Answer Comments Discussion of Advance Directives occurred with: Patient Does the patient have a Living Will? No Does the patient have Health Care Power of Attor bria? No * Full Code Date Activated Date Inactivated Comments 08/19/2011 9:34 AM 08/19/2011 12:47 PM This order reflects the patients wishes and were consensually agreed upon. Question Answer Comments Discussion of Advance Directives occurred with: Not Discussed Care Teams Marketing Administrator Relationship Specialty Start Date End Date Noam Armando MD [address] [place] [address] [place] [phone] PCP - General Family Medicine 08/10/18 documented as of this encounter
[2024-01-24 07:16] LABS: iSTAT Creatinine 9.4 mg/dl (0.6-1.3); iSTAT Hemoglobin 10.5 g/dl (12.0-16.0); iSTAT Ionized Calcium 1.17 mmol/l (1.12-1.32); iSTAT Potassium 4.9 mmol/L (3.3-5.0)
[2024-01-24 07:48] LABS: Albumin Globulin Ratio 1.3 (0.9-2); Albumin Level 3.6 gm/dl (3.4-5.0); BUN Creatinine Ratio 7.2 (10-20); Bilirubin,Total 0.5 mg/dl (0.2-1.0); Calcium 9.7 mg/dl (8.6-10.3); Globulin 2.8 gm/dl (2.5-4.0); Magnesium 2.1 mg/dl (1.7-2.4); Total Protein 6.4 gm/dl (6.0-8.3)
[2024-01-24 07:50] LABS: Hematocrit (blood only) 32.5 % (37.0-47.0); Hemoglobin 10.8 g/dl (12.0-16.0); Mean Corpuscular Hgb Conc 33.2 g/dL (32.0-36.0); Mean Corpuscular Volume 117.3 fL (80.0-100.0); Mean Platelet Volume 11.5 fL (9.4-12.4); Platelet Count 126 K/uL (130-400); RDW Coefficient of Variation 13.2 % (11.5-14.5); RDW Standard Deviation 56.7 fL (36.4-46.3); Red Blood Count 2.77 M/uL (4.20-5.40); White Blood Count 7.54 K/ul (4.8-10.8)
[2024-01-24 07:59] LABS: Basophils # (auto) 0.05 K/uL (0.00-0.20); Basophils % (auto) 0.7 %; Eosinophils # (auto) 0.08 K/uL (0.00-0.50); Eosinophils % (auto) 1.1 %; Hypersegmented Neutrophils 1+; Immature Granulocytes # (auto) 0.05 K/uL (0.01-0.20); Immature Granulocytes % (auto) 0.7 %; Lymphocytes # (auto) 0.64 K/uL (1.20-3.40); Lymphocytes % (auto) 8.5 %; Macrocytosis Present; Monocytes # (auto) 0.58 K/uL (0.11-0.59); Monocytes % (auto) 7.7 %; Neutrophils # (auto) 6.14 K/uL (1.40-6.50); Neutrophils % (auto) 81.3 %
--- NOTE | 2024-01-24 07:59 | XRay Report ---
AP AND LATERAL CHEST RADIOGRAPHS CLINICAL HISTORY: Shortness of breath. Weakness. COMPARISON STUDY: Chest CT May 12, 2022. Chest radiograph December 31, 2023. FINDINGS: There is no pneumothorax. Small bilateral pleural effusions and interstitial thickening hav e developed since prior exam. The heart is mildly enlarged. Minimal bibasilar opacities favor atelect asis. There is no consolidation to suggest pneumonia. IMPRESSION: Cardiomegaly. Interval development of mild interstitial pulmonary edema and small bilate ral pleural effusions. ACT 112: Negative or not required by law. Electronically signed by: Vicente Tapia M.D. 01/24/2024 7:56 AM
--- NOTE | 2024-01-24 08:05 | Emergency Department Note ---
Impression & Plan Pulmonary vascular congestion, Pleural effusion, Acute dyspnea, Dialysis patient ED Provider Note NAME: VALERIA URIAS AGE: 78 SEX: F : 1945 ARRIVES VIA: Ambulance INFORMANT: Patient, ED PROVIDER(S): Betty Singer MD CHIEF COMPLAINT: Syncope HPI: This is a 78-year-old female presenting for syncope. Patient states that she woke up this morning and just felt very weak. She attempted to get up to go to the bathroom. At some point she notes that she syncopized. She notes that she was recently treated for C. difficile but does not have recurrent diarrhea. She notes some slight shortness of breath as well as weakness. No pain in her body at this time. She did not fall or strike her head. She does wear 3 L nasal cannula daily. She was supposed to dialysis morning but syncopized prior. ROS: See above HPI for pertinent positives & negatives. A total of 10 systems reviewed and were otherwise negative. PAST MEDICAL HISTORY: See Below PAST SURGICAL HISTORY: See Below FAMILY HISTORY: See Below SOCIAL HISTORY: See Below HOME MEDICATIONS: See Below ALLERGIES: See Below VITALS: See Below PHYSICAL EXAMINATION: General: Pale, chronically ill-appearing Head: Normocephalic and atraumatic Eyes: Normal inspection, extraocular muscles intact Ear, nose, throat: Normal external exam Neck: Normal range of motion Respiratory: lungs clear to auscultation bilaterally Cardiovascular: Regular rate/rhythm, no murmur GI: soft, nontender, no guarding or rebound Extremities: Left arm fistula with thrill Neuro: The patient awake and alert, appropriately conversive, no focal deficits, symmetric faces Skin: Warm, dry, and intact MEDICAL DECISION MAKING: This is a 78-year-old female presenting for syncope. Patient does endorse new shortness of breath and weakness. Will do screening blood work, chest x-ray, COVID test. -Labs reviewed showing anemia 10.8, otherwise electrolytes are within normal limits. She does have a slight anion gap. Creatinine is 8.52, expected with her ESRD on hemodialysis. -Chest x-ray reveals cardiomegaly with mild interstitial pulmonary edema and small bilateral pleural effusions -Patient likely is fluid overloaded due to lack of dialysis. While she does feel significantly weak and has had already syncopal episodes. Will admit for further workup/rule out. -Vital signs reviewed, patient is on hypoxic, tachypneic or tachycardic making PE less likely. -Patient admitted under Dr. Rodriguez Differential diagnosis: Dehydration, fluid overload, upper respiratory infection, pneumonia, electrolyte disturbance, PE ER treatment provided: See below Diagnostics interpreted by me: ECG: ECG independently interpreted by me with normal sinus rhythm, rate of 65, normal axis, first-degree AV block, normal QRS, normal QTc, no ST segment elevations consistent with STEMI criteria Cardiac Monitoring: An order was placed for continuous cardiac monitoring. The monitor shows a rate of 62 with sinus rhythm. Laboratory studies: As stated above and show below. Imaging studies: See below. Past Med/Surg History Problem List Dialysis patient (Acute) Acute dyspnea (Acute) Pleural effusion (Acute) Pulmonary vascular congestion (Acute) Generalized weakness Pre-syncope Pressure injury of coccygeal region, stage 1 COVID-19 (Acute) ESRD (end stage renal disease) (Acute) Non-ST elevation NV (NSTEMI) (Acute) Shortness of breath (Acute) Fall from standing (Acute) Lytic bone lesion of hip (Acute) ESRD on hemodialysis (Acute) Closed sacral fracture (Acute) Glenoid fracture of shoulder (Acute) Lytic bone lesions on xray Acetabular fracture (Acute) Rhabdomyolysis (Acute) Fall Atrial fibrillation with rapid ventricular response (Acute) SOB (shortness of breath) (Acute) Pneumonia (Acute) Weakness (Acute) Hypotension (Acute) Hypokalemia Prolonged QT interval Elevated troponin Chronic respiratory failure with hypoxia, on home O2 therapy (Acute) Paroxysmal atrial fibrillation SOB (shortness of breath) (Acute) Atrial fibrillation with rapid ventricular response (Acute) ESRD (end stage renal disease) on dialysis (Chronic) Chronic respiratory failure with hypoxia (Chronic) Herpes simplex iridocyclitis (Chronic) DM type 2 (diabetes mellitus, type 2) (Chronic) IDDM Osteoarthritis (Chronic) Dyslipidemia (Chronic) Anemia of chronic disease (Chronic) COPD, moderate (Chronic) On 08/19/15 09:47 Mare Whyte wrote "2L O2 at home" AV fistula (Chronic) LUE Moderate mitral regurgitation (Chronic) "moderate to severe on 12/2015 echo" On 01/13/16 15:17 Blanca Chan wrote "echo 06/2015 - calcified mitral valve, moderate MR" Diastolic CHF (Chronic) HTN (hypertension) (Chronic) History of Helicobacter pylori infection (Chronic) S/P ASH (total abdominal hysterectomy) (Chronic) "For Fibroids " S/P left oophorectomy (Chronic) "1981" S/P cholecystectomy (Chronic) "1971" S/P appendectomy (Chronic) "1971" H/O colonoscopy (Chronic) "2005, hyperplastic polyps repeat in 10 years " History of cataract surgery (Chronic) H/O nasal polypectomy (Chronic) Medical History ESRD (end stage renal disease) on dialysis follows with Dr. Reed; Hillary Corley Sat - [facility] (since 02/2013) On home oxygen therapy 3 LPM cont History of colon polyps Tobacco use History of GI bleed Renal cyst H/O cardiovascular stress test "05/2013 - negative for ischemia" Pancreatic cyst Obesity Psoriasis Adrenal adenoma Surgical History History of surgery AVF creation History of intestinal surgery Family History Father Myocardial infarction, Onset Age: 64 Diabetes Mother , 87 Alzheimer disease Brother Diabetes Other No family history of adverse response to anesthesia Social History Smoking Status: Never smoker Tobacco Type: Cigarettes Cigarettes Per Day: 3; Second Hand Exposure: No; Do You Dip or Chew Tobacco: No; Hx Alcohol Use: No Hx Substance Use: No Preferred Language: Congolese Communication Ability: Effective 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 Beliefs That Will Affect Care: None marital status: / Current Living Situation: Alone current occupational status: retired How many Children do You have: 1 Feels Safe at Home: Yes Assistive Devices: Oxygen - Continuous and Walker Allergies Allergies Allergy/AdvReac Type Severity Reaction Status Date / Time chlorhexidine Allergy Intermediate ITCHING Verified 05/24/23 14:59 Home Meds Home Medications Medication Instructions Recorded Confirmed ipratropium 0.5 mg-albuterol 3 mg 3 ml inhalation QID PRN Shortness 09/26/18 01/24/24 (2.5 mg base)/3 mL nebulization Of Breath soln vitamin B complex-vitamin C-folic 1 tab PO QAM 09/26/18 01/24/24 acid 0.8 mg tablet (Arabella-Tika) fluticasone propionate 50 2 spray intranasal HS 01/18/19 01/24/24 mcg/actuation nasal spray,suspension albuterol sulfate 90 mcg/actuation 2 puff inhalation Q4H PRN Wheezing 04/05/19 01/24/24 aerosol inhaler acetaminophen 325 mg tablet 650 mg PO Q6H PRN Pain 04/14/21 01/24/24 (Tylenol) camphor-menthol 0.5 %-0.5 % lotion 1 applic topical DIRECTED PRN 04/14/21 01/24/24 Itching epoetin gabriel 10,000 unit/mL 0 unit IV DIRECTED 04/14/21 01/24/24 injection solution (Procrit) lidocaine-prilocaine 2.5 %-2.5 % 1 applic topical DIRECTED PRN 04/14/21 01/24/24 topical cream PRIOR TO DIALYSIS lisinopril 40 mg tablet 40 mg PO 4XWK 04/14/21 01/24/24 loperamide 2 mg capsule (Imodium 2 mg PO QID PRN Diarrhea 04/14/21 01/24/24 A-D) valacyclovir 1 gram tablet 1,000 mg PO QAM 04/14/21 01/24/24 fluorometholone 0.1 % eye 1 drp OPL QAM 01/25/22 01/24/24 drops,suspension docusate sodium 100 mg capsule 100 mg PO BID PRN Constipation 04/01/23 01/24/24 (Colace) fluticasone furoate 200 1 inh inhalation DAILY 04/01/23 01/24/24 mcg-vilanterol 25 mcg/dose inhalation powder (Breo Ellipta) midodrine 2.5 mg tablet 2.5 mg PO 3XWK 12/31/23 01/24/24 lanthanum 500 mg chewable tablet 500 mg PO UD 01/24/24 01/24/24 sevelamer carbonate 800 mg tablet 1,600 mg PO UD 01/24/24 01/24/24 (Renvela) Previous Rx's Medication Instructions Recorded amiodarone 200 mg tablet 200 mg PO DAILY 30 days #60 tabs 05/12/22 Results & Data (ED) Vital Signs Vital Signs - 24 hr 01/24/24 06:45 01/24/24 06:57 01/24/24 06:57 Temperature 36.7 C Temperature Source Oral Pulse Rate 63 Pulse Rate [Apical] 62 Pulse Rate from SpO2 Sensor Respiratory Rate 20 20 Blood Pressure Blood Pressure [Right Arm] 158/67 H Blood Pressure Mean Blood Pressure Mean [Right Arm] 97 Pulse Oximetry 95 98 Oxygen Delivery Method Nasal Cannula Nasal Cannula Nasal Cannula Oxygen Flow Rate 3 3 3.5 Sepsis Recent Fever Within 48 Hours No Sepsis New/Unexplained Change in Mental Status No Sepsis Action Taken by Nursing No Action Required 01/24/24 07:30 01/24/24 08:00 01/24/24 08:08 Temperature Temperature Source Pulse Rate 61 60 63 Pulse Rate [Apical] Pulse Rate from SpO2 Sensor 60 61 Respiratory Rate 21 17 Blood Pressure 164/55 H 157/66 H Blood Pressure [Right Arm] Blood Pressure Mean 108 96 Blood Pressure Mean [Right Arm] Pulse Oximetry 99 100 Oxygen Delivery Method Nasal Cannula Nasal Cannula Oxygen Flow Rate 3.5 3.5 Sepsis Recent Fever Within 48 Hours Sepsis New/Unexplained Change in Mental Status Sepsis Action Taken by Nursing 01/24/24 08:30 01/24/24 09:00 01/24/24 09:30 Temperature Temperature Source Pulse Rate 59 L 60 59 L Pulse Rate [Apical] Pulse Rate from SpO2 Sensor 59 L 60 59 L Respiratory Rate 14 18 16 Blood Pressure 146/68 H 144/69 H 144/62 H Blood Pressure [Right Arm] Blood Pressure Mean 104 126 89 Blood Pressure Mean [Right Arm] Pulse Oximetry 100 100 100 Oxygen Delivery Method Nasal Cannula Nasal Cannula Nasal Cannula Oxygen Flow Rate 3.5 3.5 3.5 Sepsis Recent Fever Within 48 Hours Sepsis New/Unexplained Change in Mental Status Sepsis Action Taken by Nursing 01/24/24 10:00 Temperature Temperature Source Pulse Rate 60 Pulse Rate [Apical] Pulse Rate from SpO2 Sensor 61 Respiratory Rate 19 Blood Pressure 141/63 H Blood Pressure [Right Arm] Blood Pressure Mean 89 Blood Pressure Mean [Right Arm] Pulse Oximetry 98 Oxygen Delivery Method Nasal Cannula Oxygen Flow Rate 3.5 Sepsis Recent Fever Within 48 Hours Sepsis New/Unexplained Change in Mental Status Sepsis Action Taken by Nursing Laboratory Data 01/24/24 06:55 01/24/24 06:55 Lab Results 01/24/24 01/24/24 01/24/24 Range/Units 06:55 07:03 07:25 WBC 7.54 (4.8-10.8) K/ul RBC 2.77 L (4.20-5.40) M/uL Hgb 10.8 L (12.0-16.0) g/dl POC Hgb 10.5 L (12.0-16.0) g/dl Hct 32.5 L (37.0-47.0) % POC Hct 31 L (37-47) % MCV 117.3 H (80.0-100.0) fL MCH 39.0 H (25.0-34.0) pg MCHC 33.2 (32.0-36.0) g/dL RDW Std Deviation 56.7 H (36.4-46.3) fL RDW Coeff of Fior 13.2 (11.5-14.5) % Plt Count 126 L (130-400) K/uL MPV 11.5 (9.4-12.4) fL Immature Gran % (Auto) 0.7 % Neut % (Auto) 81.3 % Lymph % (Auto) 8.5 % [place] % (Auto) 7.7 % Eos % (Auto) 1.1 % Baso % (Auto) 0.7 % Neut # (Auto) 6.14 (1.40-6.50) K/uL Lymph # (Auto) 0.64 L (1.20-3.40) K/uL [place] # (Auto) 0.58 (0.11-0.59) K/uL Eos # (Auto) 0.08 (0.00-0.50) K/uL Baso # (Auto) 0.05 (0.00-0.20) K/uL Immature Gran # (Auto) 0.05 (0.01-0.20) K/uL Hypersegmented Neuts 1+ Macrocytosis Present POC Sodium 139 (135-144) mmol/L Sodium 141 (136-145) mmol/L POC Potassium 4.9 (3.3-5.0) mmol/L Potassium 5.0 (3.5-5.1) mmol/L POC Chloride 104 (101-112) mmol/L Chloride 103 (98-107) mmol/L Carbon Dioxide 24 (21-32) mmol/L POC Total CO2 23 L (24-31) mmol/L Anion Gap 14 H (3-11) POC Anion Gap 18.0 (16-25) mmol/L POC BUN 57 H (7-18) mg/dl BUN 61 H (6-23) mg/dl Creatinine 8.52 H* (0.6-1.2) mg/dl POC Creatinine 9.4 H* (0.6-1.3) mg/dl Est Cr Clr Drug Dosing 6.0 ml/min eGFR 4.46 BUN/Creatinine Ratio 7.2 L (10-20) Glucose 119 H (70-99(Fasting)) mg/dl POC Glucose (other) 120 H (70-99) mg/dl Calcium 9.7 (8.6-10.3) mg/dl POC Ioniz Calcium Tyler 1.17 (1.12-1.32) mmol/l Magnesium 2.1 (1.7-2.4) mg/dl Total Bilirubin 0.5 (0.2-1.0) mg/dl AST 19 (13-39) U/L ALT 15 (7-52) U/L Alkaline Phosphatase 81 (34-104) U/L Troponin I High Sens 12.6 (0-14) pg/ml Total Protein 6.4 (6.0-8.3) gm/dl Albumin 3.6 (3.4-5.0) gm/dl Globulin 2.8 (2.5-4.0) gm/dl Albumin/Globulin Ratio 1.3 (0.9-2) Adenovirus (PCR) Not Detected (NotDetected) B. pertussis DNA (PCR) Not Detected (NotDetected) B.parapertussis DNA PCR Not Detected (NotDetected) C. pneumoniae DNA (PCR) Not Detected (NotDetected) Coronavirus OC43 (PCR) Not Detected (NotDetected) Coronavirus HKU1 (PCR) Not Detected (NotDetected) Coronavirus 229E (PCR) Not Detected (NotDetected) SARS-CoV-2 (PCR) Not Detected (NotDetected) Coronavirus NL63 (PCR) Not Detected (NotDetected) Human Metapneumovir PCR Not Detected (NotDetected) Influenza Type A (PCR) Not Detected (NotDetected) Influenza Type B (PCR) Not Detected (NotDetected) M. pneumoniae (PCR) Not Detected (NotDetected) Parainfluenza 1 (PCR) Not Detected (NotDetected) Parainfluenza 2 (PCR) Not Detected (NotDetected) Parainfluenza 3 (PCR) Not Detected (NotDetected) Parainfluenza 4 (PCR) Not Detected (NotDetected) RSV (PCR) Not Detected (NotDetected) Entero/Rhino (PCR) Not Detected (NotDetected) Imaging Data Radiologist's Impression: Chest X-Ray 01/24/24 07:23 AP AND LATERAL CHEST RADIOGRAPHS CLINICAL HISTORY: Shortness of breath. Weakness. COMPARISON STUDY: Chest CT May 12, 2022. Chest radiograph December 31, 2023. FINDINGS: There is no pneumothorax. Small bilateral pleural effusions and interstitial thickening have developed since prior exam. The heart is mildly enlarged. Minimal bibasilar opacities favor atelectasis. There is no consolidation to suggest pneumonia. IMPRESSION: Cardiomegaly. Interval development of mild interstitial pulmonary edema and small bilateral pleural effusions. ACT 112: Negative or not required by law. Electronically signed by: Vicente Tapia M.D. 01/24/2024 7:56 AM Discharge Plan Visit Data Chief Complaint: Syncope Stated Complaint: SYNCOPE ED Provider: Betty Singer Discharge Problem: Pulmonary vascular congestion, Pleural effusion, Acute dyspnea, Dialysis patient
[2024-01-24 08:25] LABS: Adenovirus PCR Not Detected (NotDetected); Bordetella parapertussis PCR Not Detected (NotDetected); Bordetella pertussis PCR Not Detected (NotDetected); Chlamydia pneumoniae PCR Not Detected (NotDetected); Coronavirus 229E PCR Not Detected (NotDetected); Coronavirus CoV-2 (COVID19)PCR Not Detected (NotDetected); Coronavirus HKU1 PCR Not Detected (NotDetected); Coronavirus NL63 PCR Not Detected (NotDetected); Coronavirus OC43PCR Not Detected (NotDetected); Human Metapneumovirus PCR Not Detected (NotDetected); Influenza A PCR Not Detected (NotDetected); Influenza B PCR Not Detected (NotDetected); Mycoplasma pneumoniae PCR Not Detected (NotDetected); Parainfluenza Virus 1 PCR Not Detected (NotDetected); Parainfluenza Virus 2 PCR Not Detected (NotDetected); Parainfluenza Virus 3 PCR Not Detected (NotDetected); Parainfluenza Virus 4 PCR Not Detected (NotDetected); Respiratory Syncytial VirusPCR Not Detected (NotDetected); Rhinovirus/Enterovirus PCR Not Detected (NotDetected)
--- NOTE | 2024-01-24 11:20 | Electrocardiogram Report ---
Test Reason : Blood Pressure : */* mmHG Vent. Rate : 65 BPM Atrial Rate : 65 BPM P-R Int : 222 ms QRS Dur : 88 ms QT Int : 460 ms P-R-T Axes : 91 60 64 degrees QTcB Int : 478 ms Sinus rhythm with 1st degree A-V block Otherwise normal ECG When compared with ECG of 31-Dec-2023 10:52, T wave amplitude has decreased in Lateral leads Confirmed by Oziel Wen ([id number]) on 01/24/2024 11:19:44 AM Referred By: REFERRED SELF Confirmed By: Oziel Wen
--- NOTE | 2024-01-24 12:18 | History & Physical Report ---
Date of Service January 24, 2024 Assessment & Plan (1) Pre-syncope: Plan: Woke up at 345 with generalized weakness and feeling unwell [place] like syncope but did not have any fall and no loss of consciousness Denied any significant symptoms of palpitation, chest pain, more shortness of breath, nausea and/or vomiting or any neurological symptoms Likely secondary to postural hypotension associated with intestinal disease She will be observed in the med/telemetry unit Rule out any arrhythmias and doubt any ACS Will get a repeat echo Orthostatic vitals (2) Generalized weakness: Plan: As above Will get PT and OT evaluation (3) ESRD on hemodialysis: Plan: Nephrology is consulted-ER physician did talk to the panel machine operator She will have dialysis (4) Chronic respiratory failure with hypoxia, on home O2 therapy: Plan: Doubt any exacerbation of COPD or any infection like bronchitis and/or pneumonia Has congestive change on chest x-ray Has been requiring 3.5 L to maintain saturation Will need to have dialysis today (5) Paroxysmal atrial fibrillation: Plan: Rate is controlled at 64 (6) DM type 2 (diabetes mellitus, type 2): Plan: Will have sliding scale insulin coverage (7) Anemia of chronic disease: Plan: Will appropriate as before (8) COPD, moderate: Plan: Continue current inhalers and nebulized treatment (9) Diastolic CHF: Plan: Doubt any exacerbation will get echo to evaluate cardiac function Will need to have dialysis (10) HTN (hypertension): Plan: Blood pressure is well-controlled with current medication Plan DVT prophylaxis Subcu heparin CODE STATUS Full History of Present Illness Chief Complaint: Generally weak and felt funny and near syncope episode at around 3:45 AM Primary Care Provider: Noam Armando MD She is a 78 years old female with significant past medical history of type 2 diabetes, hyperparathyroidism, COPD, chronic hypoxic respiratory failure on 3 L oxygen at home, paroxysmal atrial fibrillation, mesenteric artery stenosis, nonrheumatic mitral regurgitation andrenal disease on hemodialysis apparently woke up at around 345 this morning and was preparing for going for dialysis. She felt generally very weak, lethargic and felt funny but he still could not manage to do her usual activities including making Tea herself. She did not have any dizziness, blurry of vision, weakness involving any of the side, any numbness or tingling in the extremities, any problem with her speech but overall she was not feeling well and did not have any fall or any loss of consciousness. Her daughter came to take her for dialysis but with the symptoms of presyncope she was brought into the emergency room. She has chronic cough and no recent fever and or chills. She has been treated with C. difficile colitis recently but denies to have any diarrhea or any urinary symptoms. She will be admitted to med/telemetry unit for continued of care. Allergies Allergy/AdvReac Type Severity Reaction Status Date / Time chlorhexidine Allergy Intermediate ITCHING Verified 05/24/23 14:59 Home Medications Medication Instructions Recorded Confirmed Type ipratropium 0.5 mg-albuterol 3 mg 3 ml inhalation QID PRN Shortness 09/26/18 12/31/23 History (2.5 mg base)/3 mL nebulization Of Breath soln vitamin B complex-vitamin C-folic 1 tab PO QAM 09/26/18 12/31/23 History acid 0.8 mg tablet (Arabella-Tika) fluticasone propionate 50 2 spray intranasal HS 01/18/19 12/31/23 History mcg/actuation nasal spray,suspension albuterol sulfate 90 mcg/actuation 2 puff inhalation Q4H PRN Wheezing 04/05/19 12/31/23 History aerosol inhaler acetaminophen 325 mg tablet 650 mg PO Q6H PRN Pain 04/14/21 12/31/23 History (Tylenol) camphor-menthol 0.5 %-0.5 % lotion 1 applic topical DIRECTED PRN 04/14/21 12/31/23 History Itching epoetin gabriel 10,000 unit/mL 0 unit IV DIRECTED 04/14/21 12/31/23 History injection solution (Procrit) lidocaine-prilocaine 2.5 %-2.5 % 1 applic topical DIRECTED PRN 04/14/21 12/31/23 History topical cream PRIOR TO DIALYSIS lisinopril 40 mg tablet 40 mg PO 4XWK 04/14/21 12/31/23 History loperamide 2 mg capsule (Imodium 2 mg PO QID PRN Diarrhea 04/14/21 12/31/23 History A-D) valacyclovir 1 gram tablet 1,000 mg PO QAM 04/14/21 12/31/23 History fluorometholone 0.1 % eye 1 drp OPL QAM 01/25/22 12/31/23 History drops,suspension amiodarone 200 mg tablet 200 mg PO DAILY 30 days #60 tabs 05/12/22 12/31/23 Rx docusate sodium 100 mg capsule 100 mg PO BID PRN Constipation 04/01/23 12/31/23 History (Colace) fluticasone furoate 200 1 inh inhalation DAILY 04/01/23 12/31/23 History mcg-vilanterol 25 mcg/dose inhalation powder (Breo Ellipta) midodrine 2.5 mg tablet 2.5 mg PO 3XWK 12/31/23 12/31/23 History Past Med/Surg History Problem List Generalized weakness Pre-syncope Pressure injury of coccygeal region, stage 1 COVID-19 (Acute) ESRD (end stage renal disease) (Acute) Non-ST elevation RI (NSTEMI) (Acute) Shortness of breath (Acute) Fall from standing (Acute) Lytic bone lesion of hip (Acute) ESRD on hemodialysis (Acute) Closed sacral fracture (Acute) Glenoid fracture of shoulder (Acute) Lytic bone lesions on xray Acetabular fracture (Acute) Rhabdomyolysis (Acute) Fall Atrial fibrillation with rapid ventricular response (Acute) SOB (shortness of breath) (Acute) Pneumonia (Acute) Weakness (Acute) Hypotension (Acute) Hypokalemia Prolonged QT interval Elevated troponin Chronic respiratory failure with hypoxia, on home O2 therapy (Acute) Paroxysmal atrial fibrillation SOB (shortness of breath) (Acute) Atrial fibrillation with rapid ventricular response (Acute) ESRD (end stage renal disease) on dialysis (Chronic) Chronic respiratory failure with hypoxia (Chronic) Herpes simplex iridocyclitis (Chronic) DM type 2 (diabetes mellitus, type 2) (Chronic) IDDM Osteoarthritis (Chronic) Dyslipidemia (Chronic) Anemia of chronic disease (Chronic) COPD, moderate (Chronic) On 08/19/15 09:47 Mare Whyte wrote "2L O2 at home" AV fistula (Chronic) LUE Moderate mitral regurgitation (Chronic) "moderate to severe on 12/2015 echo" On 01/13/16 15:17 Blanca Chan wrote "echo 06/2015 - calcified mitral valve, moderate MR" Diastolic CHF (Chronic) HTN (hypertension) (Chronic) History of Helicobacter pylori infection (Chronic) S/P ASH (total abdominal hysterectomy) (Chronic) "For Fibroids " S/P left oophorectomy (Chronic) "1981" S/P cholecystectomy (Chronic) "1971" S/P appendectomy (Chronic) "1971" H/O colonoscopy (Chronic) "2005, hyperplastic polyps repeat in 10 years " History of cataract surgery (Chronic) H/O nasal polypectomy (Chronic) Medical History ESRD (end stage renal disease) on dialysis follows with Dr. Reed; Hillary Corley, Luis Carlos - [facility] (since 02/2013) On home oxygen therapy 3 LPM cont History of colon polyps Tobacco use History of GI bleed Renal cyst H/O cardiovascular stress test "05/2013 - negative for ischemia" Pancreatic cyst Obesity Psoriasis Adrenal adenoma Surgical History History of surgery AVF creation History of intestinal surgery Family History Father Myocardial infarction, Onset Age: 64 Diabetes Mother , 87 Alzheimer disease Brother Diabetes Other No family history of adverse response to anesthesia Social History Smoking Status: Never smoker Tobacco Type: Cigarettes Cigarettes Per Day: 3; Second Hand Exposure: No; Do You Dip or Chew Tobacco: No; Hx Alcohol Use: No Hx Substance Use: No Preferred Language: Surinamese Communication Ability: Effective Ad Operations Coordinator 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 Beliefs That Will Affect Care: None marital status: / Current Living Situation: Alone current occupational status: retired How many Children do You have: 1 Feels Safe at Home: Yes Assistive Devices: Oxygen - Continuous and Walker Review of Systems Review of Systems: All systems reviewed and are unremarkable except as noted below Physical Exam Physical Exam: Lying in bed without any apparent distress but feels lethargic and wanted to have her food Constitutional: + ill appearing and average body habitus Eyes: PERRL, conjunctivae normal, anicteric sclerae ENMT: external ear and nose normal, oropharynx normal Neck: trachea midline, no thyromegaly Respiratory: no respiratory distress Auscultation: + diminished lung sounds and + crackles (Coarse crackles bilaterally especially at the bases) Cardiovascular: Rate/Rhythm: regular rate and regular rhythm; not tachycardic Heart Sounds: normal S1, normal S2 and + murmur Extremities: no edema Gastrointestinal (Abdomen): Inspection/Auscultation: normal bowel sounds; abdomen not distended Percussion/Palpation: abdomen soft; abdomen nontender Musculoskeletal: No acute arthritis involving any of the joint Neurologic: normal touch/pain/proprioception and moves all extremities; no focal motor deficits and not confused Lymphatic: no cervical or axillary lymphadenopathy Results & Data Results & Data Vital Signs (Past 12 Hours) Vital Signs Temp Pulse Pulse Resp BP BP Pulse Ox 01/24/24 10:00 60 19 141/63 H 98 01/24/24 09:30 59 L 16 144/62 H 100 01/24/24 09:00 60 18 144/69 H 100 01/24/24 08:30 59 L 14 146/68 H 100 01/24/24 08:08 63 01/24/24 08:00 60 17 157/66 H 100 01/24/24 07:30 61 21 164/55 H 99 01/24/24 06:57 01/24/24 06:57 62 20 158/67 H 98 01/24/24 06:45 36.7 C 63 20 95 O2 Del Method O2 Flow Rate 01/24/24 10:00 Nasal Cannula 3.5 01/24/24 09:30 Nasal Cannula 3.5 01/24/24 09:00 Nasal Cannula 3.5 01/24/24 08:30 Nasal Cannula 3.5 01/24/24 08:08 01/24/24 08:00 Nasal Cannula 3.5 01/24/24 07:30 Nasal Cannula 3.5 01/24/24 06:57 Nasal Cannula 3.5 01/24/24 06:57 Nasal Cannula 3 01/24/24 06:45 Nasal Cannula 3 Laboratory Results Short CBC 01/24/24 Range/Units 06:55 WBC 7.54 (4.8-10.8) K/ul Hgb 10.8 L (12.0-16.0) g/dl Hct 32.5 L (37.0-47.0) % Plt Count 126 L (130-400) K/uL BMP 01/24/24 06:55 Sodium 141 Potassium 5.0 Chloride 103 Carbon Dioxide 24 BUN 61 H Creatinine 8.52 H* Glucose 119 H Calcium 9.7 Liver Function 01/24/24 Range/Units 06:55 Total Bilirubin 0.5 (0.2-1.0) mg/dl AST 19 (13-39) U/L ALT 15 (7-52) U/L Alkaline Phosphatase 81 (34-104) U/L Albumin 3.6 (3.4-5.0) gm/dl Medications Administered Current Inpatient Medications Heparin Sodium (Porcine) (Heparin Sod 5,000 Unit/0.5 Ml Vial) 5,000 units SQ Q1 2 MARY Stop: 02/23/24 20:59 Code Status & VTE Plan VTE Prophylaxis Plan VTE Prophylaxis will be ordered: Yes
[2024-01-24 12:59] LABS: Troponin I High Sensitivity 12.6 pg/ml (0-14)
--- NOTE | 2024-01-24 13:07 | Nephrology Consultation ---
Date of Consultation January 24, 2024 Assessment & Plan (1) ESRD (end stage renal disease): ESRD on HD-TTS She will be dialyzed for 3.5 to 4 hrs and take 3-4 kilo as tolerated. Will try to optimize her volume status which would help her breathing. Continue on outpatient medications. (2) Pre-syncope: Likley postural in nature - Ongoing work up as per primary. History of Present Illness Reason for Consultation: ESRD on HD(TTS), admitted with presyncopal, missed dialysis treatment today History of Present Illness 78 years old female, who was brought to the ER by her daughter. she felt very weak lethargic" very unlike myself" while she was preparing to go for dialysis.ER labs were significant for Hb of 10.8,K-4.9,Glucose of 119 and Magnesium 2.1, Troponin- 12.6 w/normal hemodynamics. Chest xray showed c ardiomegaly w/interval development of mild interstitial pulmonary edema and small bilateral pleural effusions. Past medical history of type 2 diabetes, hyperparathyroidism, COPD, chronic hypoxic respiratory failure on 3 L oxygen at home, paroxysmal atrial fibrillation, mesenteric artery stenosis, nonrheumatic mitral regurgitation andrenal disease on hemodialysis ( TTS at [facility]) Allergies Allergy/AdvReac Type Severity Reaction Status Date / Time chlorhexidine Allergy Intermediate ITCHING Verified 05/24/23 14:59 Home Medications Medication Instructions Recorded Confirmed Type ipratropium 0.5 mg-albuterol 3 mg 3 ml inhalation QID PRN Shortness 09/26/18 01/24/24 History (2.5 mg base)/3 mL nebulization Of Breath soln vitamin B complex-vitamin C-folic 1 tab PO QAM 09/26/18 01/24/24 History acid 0.8 mg tablet (Arabella-Tika) fluticasone propionate 50 2 spray intranasal HS 01/18/19 01/24/24 History mcg/actuation nasal spray,suspension albuterol sulfate 90 mcg/actuation 2 puff inhalation Q4H PRN Wheezing 04/05/19 01/24/24 History aerosol inhaler acetaminophen 325 mg tablet 650 mg PO Q6H PRN Pain 04/14/21 01/24/24 History (Tylenol) camphor-menthol 0.5 %-0.5 % lotion 1 applic topical DIRECTED PRN 04/14/21 01/24/24 History Itching epoetin gabriel 10,000 unit/mL 0 unit IV DIRECTED 04/14/21 01/24/24 History injection solution (Procrit) lidocaine-prilocaine 2.5 %-2.5 % 1 applic topical DIRECTED PRN 04/14/21 01/24/24 History topical cream PRIOR TO DIALYSIS lisinopril 40 mg tablet 40 mg PO 4XWK 04/14/21 01/24/24 History loperamide 2 mg capsule (Imodium 2 mg PO QID PRN Diarrhea 04/14/21 01/24/24 History A-D) valacyclovir 1 gram tablet 1,000 mg PO QAM 04/14/21 01/24/24 History fluorometholone 0.1 % eye 1 drp OPL QAM 01/25/22 01/24/24 History drops,suspension amiodarone 200 mg tablet 200 mg PO DAILY 30 days #60 tabs 05/12/22 01/24/24 Rx docusate sodium 100 mg capsule 100 mg PO BID PRN Constipation 04/01/23 01/24/24 History (Colace) fluticasone furoate 200 1 inh inhalation DAILY 04/01/23 01/24/24 History mcg-vilanterol 25 mcg/dose inhalation powder (Breo Ellipta) midodrine 2.5 mg tablet 2.5 mg PO 3XWK 12/31/23 01/24/24 History lanthanum 500 mg chewable tablet 500 mg PO UD 01/24/24 01/24/24 History sevelamer carbonate 800 mg tablet 1,600 mg PO UD 01/24/24 01/24/24 History (Renvela) Patient History Medical History ESRD (end stage renal disease) on dialysis follows with Dr. Reed; Hillary Corley, Luis Carlos - [facility] (since 02/2013) On home oxygen therapy 3 LPM cont History of colon polyps Tobacco use History of GI bleed Renal cyst H/O cardiovascular stress test "05/2013 - negative for ischemia" Pancreatic cyst Obesity Psoriasis Adrenal adenoma Surgical History History of surgery AVF creation History of intestinal surgery Family History Father Myocardial infarction, Onset Age: 64 Diabetes Mother , 87 Alzheimer disease Brother Diabetes Other No family history of adverse response to anesthesia Social History Smoking Status: Current every day smoker Tobacco Type: Cigarettes Cigarettes Per Day: 3; Second Hand Exposure: Yes; Do You Dip or Chew Tobacco: No; Tobacco Cessation Education Requested by Patient: No Hx Alcohol Use: No Hx Substance Use: No Preferred Language: Gambian Communication Ability: Effective Rag Collector 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 Beliefs That Will Affect Care: None marital status: / Current Living Situation: Alone current occupational status: retired How many Children do You have: 1 Other Information That Helps Us Care for You: No Feels Safe at Home: Yes Assistive Devices: Oxygen - Continuous and Walker Review of Systems 2 Review of Systems: All systems reviewed & are unremarkable except as noted in HPI & below Physical Exam 2 Physical Exam: Constitutional: vitals as above, sitting up in bed, pleasant Respiratory: Bilateral rhonic Cardiovascular: RRR, no murmur, 1+ edema no JVD Abdomen: soft, nontender, Musculoskeletal: Fistula in left arm with good thrill Skin: no rashes, warm and dry normal turgor Neurologic: PERRL, EOMI, accommodation nl, no face palsy, moves all extremities Results & Data Vital Signs (Past 12 Hours) Vital Signs Temp Pulse Pulse Resp BP BP Pulse Ox 01/24/24 12:50 61 18 152/63 H 96 01/24/24 12:07 64 01/24/24 10:00 60 19 141/63 H 98 01/24/24 09:30 59 L 16 144/62 H 100 01/24/24 09:00 60 18 144/69 H 100 01/24/24 08:30 59 L 14 146/68 H 100 01/24/24 08:08 63 01/24/24 08:00 60 17 157/66 H 100 01/24/24 07:30 61 21 164/55 H 99 01/24/24 06:57 01/24/24 06:57 62 20 158/67 H 98 01/24/24 06:45 36.7 C 63 20 95 O2 Del Method O2 Flow Rate 01/24/24 12:50 Room Air 01/24/24 12:07 01/24/24 10:00 Nasal Cannula 3.5 01/24/24 09:30 Nasal Cannula 3.5 01/24/24 09:00 Nasal Cannula 3.5 01/24/24 08:30 Nasal Cannula 3.5 01/24/24 08:08 01/24/24 08:00 Nasal Cannula 3.5 01/24/24 07:30 Nasal Cannula 3.5 01/24/24 06:57 Nasal Cannula 3.5 01/24/24 06:57 Nasal Cannula 3 01/24/24 06:45 Nasal Cannula 3 Laboratory Results 01/24/24 06:55 01/24/24 06:55
[2024-01-24] MEDS ORDERED: CAMPHOR MENTHOL TOP PRN (17:42)
[2024-01-24] MEDS ORDERED: ALBUTEROL HFA 8 GM INHALER INH PRN (17:42)
[2024-01-24] MEDS ORDERED: ALBUT/IPRATROP 3MG/0.5MG NEB 3 ML VIAL INH PRN (17:42)
[2024-01-24] MEDS: MIDODRINE HCL 2.5 MG TAB PO SCH (20:36)
[2024-01-24] MEDS: HEPARIN SOD 5,000 UNIT/0.5 ML VIAL SQ SCH (21:19)
[2024-01-24] MEDS: FLUTICASONE PROPIONATE NA SPR 16 GM BTL SCH (21:20)
[2024-01-25 06:57] LABS: Basophils # (auto) 0.04 K/uL (0.00-0.20); Basophils % (auto) 0.8 %; Eosinophils # (auto) 0.07 K/uL (0.00-0.50); Eosinophils % (auto) 1.5 %; Hematocrit (blood only) 30.7 % (37.0-47.0); Hemoglobin 10.7 g/dl (12.0-16.0); Immature Granulocytes # (auto) 0.02 K/uL (0.01-0.20); Immature Granulocytes % (auto) 0.4 %; Lymphocytes # (auto) 0.59 K/uL (1.20-3.40); Lymphocytes % (auto) 12.3 %; Mean Corpuscular Hemoglobin 40.4 pg (25.0-34.0); Mean Corpuscular Hgb Conc 34.9 g/dL (32.0-36.0); Mean Corpuscular Volume 115.8 fL (80.0-100.0); Mean Platelet Volume 11.5 fL (9.4-12.4); Monocytes # (auto) 0.58 K/uL (0.11-0.59); Monocytes % (auto) 12.1 %; Neutrophils # (auto) 3.48 K/uL (1.40-6.50); Neutrophils % (auto) 72.9 %; Platelet Count 127 K/uL (130-400); RDW Coefficient of Variation 13.1 % (11.5-14.5); RDW Standard Deviation 55.5 fL (36.4-46.3); Red Blood Count 2.65 M/uL (4.20-5.40); White Blood Count 4.78 K/ul (4.8-10.8)
[2024-01-25 07:29] LABS: Creatinine Clr Calc Pharmacy 8.8 ml/min; Phosphorus 5.1 mg/dl (2.5-4.9); Potassium 4.4 mmol/L (3.5-5.1)
[2024-01-25] MEDS: ACETAMINOPHEN 325 MG TAB PO PRN (08:47)
[2024-01-25] MEDS: DOCUSATE SODIUM 100 MG CAP PO PRN (08:47)
[2024-01-25] MEDS: NEPHROCAPS PO SCH (08:48)
[2024-01-25] MEDS: AMIODARONE 200 MG TAB PO SCH (08:48)
[2024-01-25] MEDS: lisinopril 40 MG TAB PO SCH (08:48)
[2024-01-25] MEDS: FLUTICASONE/VILANTEROL 200/25MCG 14 PUFFS/INHALER INH SCH (08:49)
--- NOTE | 2024-01-25 11:16 | Cardiology Consultation ---
Date of Consultation January 25, 2024 Assessment & Plan (1) Pre-syncope: (2) Generalized weakness: (3) Mitral valve annular calcification: (4) Mitral regurgitation: (5) Paroxysmal atrial fibrillation: (6) Labile hypertension: (7) Dialysis patient: Plan Patient admitted with weakness, pre syncope. Long history of labile hypertension with dialysis. Remains on lisinopril for HTN and midodrine during dialysis 3 days per week. EKG demonstrated NSR with 1st degree AV block HS troponin unremarkable. Telemetry reveals NSR and Sinus bradycardia with HR ranging 55-65. No pauses/high degree AV block. No symptomatic bradycardia. She has a long history of PAF, maintained on amiodarone 200 mg daily. She has been deemed not a candidate for anticoagulation due to history of significant GI bleed, chronic anemia and fall risk. Recent LFT"s and TSH within normal limits Stable QT/QTc findings on EKG. Continue amiodarone. Outpatient ZIO monitor recommended for further evaluation of arrhythmias contributing to her presyncope. She also has a long history of mitral valve calcification with moderate/severe MR. This has been followed for many years and conservative therapies recommended and preferred by patient. Echo during admission is stable with preserved LVEF. Mild pulm vascular congestion on chest xray. She reports ongoing cough but SOB is stable per patient Volume status is managed with HD. She does not examine as significantly hypervolemic. Continue current medications No indication for further cardiac testing. Can maintain telemetry during admission. Continue Lisinopril and amiodarone. Will arrange outpatient ZIO monitor on discharge and cardiology follow up in [place]. Case discussed with Dr. Somers I spent a total of 50 minutes on the date of service in preparation, delivery, and documentation of the care provided to this patient, excluding any time spent in the performance of separately billed services. Christin Mahoney PA-C Department of Cardiology, [facility] This chart was completed in part utilizing Speech Voice Recognition Software. Grammatical errors, random word insertions, pronoun errors, and incomplete sentences are an occasional consequence of this system due to software limitations, ambient noise, and hardware issues. Any formal questions or concerns about the content, text, or information contained within the body of this dictation should be directly addressed to the provider for clarification. Supervising Physician Co-Signing Physician Notes Attending attestation: Case reviewed with the advanced practitioner. I have personally performed a history and physical examination on the patient. I have reviewed the advanced practitioner's documentation on the date of service referenced in note, and I agree with, and take responsibility for the plan of care. Telemetry reveals sinus bradycardia in the 50s. EKG performed 01/24/2024 and interpreted independently revealed sinus rhythm at 65 bpm with first-degree AV block, MA interval 222 ms, stable findings. Echocardiogram unchanged compared to 6 months ago as noted above. No changes in medications recommended at this time. I spent a total of 20 minutes coordinating, documenting, and providing care for this patient excluding time spent in the performance of separately billed services or time spent by another provider. Suhas Somers, History of Present Illness Reason for Consultation: pre syncope; valvular heart disease Requesting Physician: Twin Mulligan Attending Physician: Dr. Somers History of Present Illness Patient is a 78 year old female who presented to [facility] with complaints of dizziness and pre syncope. Patient reports she was at dialysis during the episode and came for evaluation. Apparently patient had recent GI illness over the weekend and reported diarrhea and nausea. Now improved. Patient is not the best historian. Inpatient/outpatient records reviewed. History includes: 1.Paroxysmal atrial fibrillation, currently NSR. Off anticoagulation secondary to anemia, HD treatments, and patient preference. 2.Focal calcification of the posterior mitral valve leaflet with moderate to severe mitral regurgitation. Medical management/conservative therapy requested and recommended. 3.End-stage kidney disease on hemodialysis 4.Prior GI bleeding requiring transfusions of PRBC's, no longer on a nticoagulation therapy. 5.Anemia of chronic disease, monitored by Nephrology, 6.Type II diabetes mellitus 7.COPD requiring supplemental oxygen, with chronic ongoing tobacco abuse. 8.Hypertension - controlled 9.Dyslipidemia Upon arrival, patient's EKG demonstrated NSR with 1st degree AV block. No acute changes. Rare PVC's HS troponin negative. Mildly hypertensive on arrival, but with labile readings since admission, ranging 90's to 160's. She takes midodrine with dialysis 3 days per week due to hypotension. Repeat echo was done yesterday demonstrating normal LVEF with calcification of the mitral valve, moderate to severe MR. Stable findings from past echo results dating back many years. No arrhythmias on telemetry since yesterday. Sinus and sinus bradycardia noted with HR's ranging 55-65. No pauses or high degree AV block. At time of consult, patient resting in bed feeling ok. Notes generalized fatigue. Voices no other complaints. No recurrent lightheadedness since admis yvan. Chronic cough and SOB reported but she feels this is her baseline. no increased edema. No palpitations. No chest pain Allergies Allergy/AdvReac Type Severity Reaction Status Date / Time chlorhexidine Allergy Intermediate ITCHING Verified 05/24/23 14:59 Home Medications Medication Instructions Recorded Confirmed Type ipratropium 0.5 mg-albuterol 3 mg 3 ml inhalation QID PRN Shortness 09/26/18 01/24/24 History (2.5 mg base)/3 mL nebulization Of Breath soln vitamin B complex-vitamin C-folic 1 tab PO QAM 09/26/18 01/24/24 History acid 0.8 mg tablet (Arabella-Tika) fluticasone propionate 50 2 spray intranasal HS 01/18/19 01/24/24 History mcg/actuation nasal spray,suspension albuterol sulfate 90 mcg/actuation 2 puff inhalation Q4H PRN Wheezing 04/05/19 01/24/24 History aerosol inhaler acetaminophen 325 mg tablet 650 mg PO Q6H PRN Pain 04/14/21 01/24/24 History (Tylenol) camphor-menthol 0.5 %-0.5 % lotion 1 applic topical DIRECTED PRN 04/14/21 01/24/24 History Itching epoetin gabriel 10,000 unit/mL 0 unit IV DIRECTED 04/14/21 01/24/24 History injection solution (Procrit) lidocaine-prilocaine 2.5 %-2.5 % 1 applic topical DIRECTED PRN 04/14/21 01/24/24 History topical cream PRIOR TO DIALYSIS lisinopril 40 mg tablet 40 mg PO 4XWK 04/14/21 01/24/24 History loperamide 2 mg capsule (Imodium 2 mg PO QID PRN Diarrhea 04/14/21 01/24/24 History A-D) valacyclovir 1 gram tablet 1,000 mg PO QAM 04/14/21 01/24/24 History fluorometholone 0.1 % eye 1 drp OPL QAM 01/25/22 01/24/24 History drops,suspension amiodarone 200 mg tablet 200 mg PO DAILY 30 days #60 tabs 05/12/22 01/24/24 Rx docusate sodium 100 mg capsule 100 mg PO BID PRN Constipation 04/01/23 01/24/24 History (Colace) fluticasone furoate 200 1 inh inhalation DAILY 04/01/23 01/24/24 History mcg-vilanterol 25 mcg/dose inhalation powder (Breo Ellipta) midodrine 2.5 mg tablet 2.5 mg PO 3XWK 12/31/23 01/24/24 History lanthanum 500 mg chewable tablet 500 mg PO UD 01/24/24 01/24/24 History sevelamer carbonate 800 mg tablet 1,600 mg PO UD 01/24/24 01/24/24 History (Renvela) Patient History Medical History ESRD (end stage renal disease) on dialysis follows with Dr. Reed; Hillary Corlye, Luis [facility] - [facility] (since 02/2013) On home oxygen therapy 3 LPM cont History of colon polyps Tobacco use History of GI bleed Renal cyst H/O cardiovascular stress test "05/2013 - negative for ischemia" Pancreatic cyst Obesity Psoriasis Adrenal adenoma Surgical History History of surgery AVF creation History of intestinal surgery Family History Father Myocardial infarction, Onset Age: 64 Diabetes Mother , 87 Alzheimer disease Brother Diabetes Other No family history of adverse response to anesthesia Social History Smoking Status: Current every day smoker Tobacco Type: Cigarettes Cigarettes Per Day: 3; Second Hand Exposure: Yes; Do You Dip or Chew Tobacco: No; Tobacco Cessation Education Requested by Patient: No Hx Alcohol Use: No Hx Substance Use: No Preferred Language: German Communication Ability: Effective Marketing Sales Representative 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 Beliefs That Will Affect Care: None marital status: / Current Living Situation: Alone current occupational status: retired How many Children do You have: 1 Other Information That Helps Us Care for You: No Feels Safe at Home: Yes Assistive Devices: Oxygen - Continuous and Walker Review of Systems Review of Systems: All systems reviewed & are unremarkable except as noted in HPI & below Physical Exam Constitutional: WD/WN, vitals as above no acute distress Neck: trachea midline, no thyromegaly normal visual inspection Respiratory: + cough; no labored breathing Auscult ation: + diminished lung sounds and + rhonchi Cardiovascular: Rate/Rhythm: regular rate and regular rhythm Heart Sounds: + murmur (II/ systolic murmur) Vessels: no JVD Extremities: no edema Gastrointestinal (Abdomen): normal bowel sounds, soft, nontender, no hepatosplenomegaly Musculoskeletal: no cyanosis or clubbing, extremities motor strength 5/5 Neurologic: PERRL, EOMI, accommodation nl, no face palsy, no dysarthria Results & Data Vital Signs (Past 12 Hours) Vital Signs Temp Pulse Pulse Resp BP Pulse Ox O2 Del Method 01/25/24 08:38 Nasal Cannula 01/25/24 07:42 37.0 C 76 16 159/64 H 97 Nasal Cannula 01/25/24 07:10 61 01/25/24 03:25 36.8 C 61 18 145/56 H 93 Nasal Cannula O2 Flow Rate 01/25/24 08:38 3 01/25/24 07:42 3 01/25/24 07:10 01/25/24 03:25 3 Laboratory Results Cardiac Enzymes 01/24/24 Range/Units 06:55 Troponin I High Sens 12.6 (0-14) pg/ml CBC 01/25/24 Range/Units 06:12 WBC 4.78 L (4.8-10.8) K/ul RBC 2.65 L (4.20-5.40) M/uL Hgb 10.7 L (12.0-16.0) g/dl Hct 30.7 L (37.0-47.0) % Plt Count 127 L (130-400) K/uL Neut # (Auto) 3.48 (1.40-6.50) K/uL Lymph # (Auto) 0.59 L (1.20-3.40) K/uL Boyle # (Auto) 0.58 (0.11-0.59) K/uL Eos # (Auto) 0.07 (0.00-0.50) K/uL Baso # (Auto) 0.04 (0.00-0.20) K/uL Comprehensive Metabolic Panel 01/25/24 Range/Units 06:12 Sodium 140 (136-145) mmol/L Potassium 4.4 (3.5-5.1) mmol/L Chloride 102 (98-107) mmol/L Carbon Dioxide 28 (21-32) mmol/L BUN 28 H D (6-23) mg/dl Creatinine 5.60 H* D (0.6-1.2) mg/dl Glucose 73 (70-99(Fasting)) mg/dl Calcium 9.0 (8.6-10.3) mg/dl Intake and Output 01/24/24 01/25/24 01/25/24 22:59 06:59 14:59 Intake Total 100 / 100 Balance 100 / 100 Intake: Oral 100 / 100 Other: Hemodialysis Ultrafiltration 3,000 Amount Weight 74.9 kg Weight Measurement Method Built in [facility] Diagnostic Findings Telemetry reviewed: NSR and Sinus bradycardia with HR's ranging 55-65 at rest. No pauses, symptomatic bradycardia, or high degree AV block EKG reviewed from admission 01/24/24: NSR with 1st degree AV perez. PVC No acute ischemic changes No change from prior EKG QT/QTC 460/478 ms Echo report reviewed dated 01/24/24: LVEF at 60-65% LA is moderately dilated Mild focal calcification of the posterior leaflet of the MV. Moderate to severe MR noted Compared with prior studies, calcification of the mitral valve is unchanged Chest X-Ray 01/24/24 07:23 AP AND LATERAL CHEST RADIOGRAPHS CLINICAL HISTORY: Shortness of breath. Weakness. COMPARISON STUDY: Chest CT May 12, 2022. Chest radiograph December 31, 2023. FINDINGS: There is no pneumothorax. Small bilateral pleural effusions and interstitial thickening have developed since prior exam. The heart is mildly enlarged. Minimal bibasilar opacities favor atelectasis. There is no consolidation to suggest pneumonia. IMPRESSION: Cardiomegaly. Interval development of mild interstitial pulmonary edema and small bilateral pleural effusions. ACT 112: Negative or not required by law. Electronically signed by: Vicente Tapia M.D. 01/24/2024 7:56 AM Prior echo reviewed from June 2023: Interpretation Summary The examination is adequate to evaluate the referral indication. The left ventricular cavity size is normal. The LV wall thickness is mildly increased (concentric). The basal septum is thickened and angulated consistent with sigmoid septum. The qualitative LV ejection fraction is 60-64% (normal). The left ventricular diastolic function is mildly abnormal (grade I). Mild aortic valve sclerosis is present. There is focal calcification of the posterior mitral valve leaflet edge measuring 0.6 cm. Segment prolapses into the atrium with associated moderate mitral insufficiency Previous images are unobtainable Prior description of similar findings on past echoes dating to 2015 Discrete mass or vegetation not completely excluded Prior echo reviewed from Mar 2021: LVEF 65% Severe focal calcification of the posterior mitral valve leaflet Medications Administered Current Inpatient Medications Acetaminophen (Acetaminophen 325 Mg Tab) 650 mg PO Q6H PRN PRN Reason: Pain Stop: 02/23/24 17:41 Last Admin: 01/25/24 08:47 Dose: 650 mg Albuterol (Albuterol Hfa 8 Gm Inhaler) 2 puffs INH Q4H PRN PRN Reason: Wheezing Stop: 02/23/24 17:41 Albuterol (Albut/Ipratrop 3mg/0.5mg Neb 3 Ml Vial) 3 ml INH QID PRN; Protocol PRN Reason: Shortness Of Breath Stop: 02/23/24 17:41 Amiodarone HCl (Amiodarone 200 Mg Tab) 200 mg PO DAILY MARY Stop: 02/24/24 08:59 Last Admin: 01/25/24 08:48 Dose: 200 mg Docusate Sodium (Docusate Sodium 100 Mg Cap) 100 mg PO BID PRN PRN Reason: Constipation Stop: 02/23/24 17:41 Last Admin: 01/25/24 08:47 Dose: 100 mg Fluticasone Propionate (Fluticasone Propionate Na Spr 16 Gm Btl) 2 sprays NA HS MARY Stop: 02/23/24 20:59 Last Admin: 01/24/24 21:20 Dose: 2 sprays Fluticasone/Vilanterol (Fluticasone/Vilanterol 200/25mcg 14 Puffs/Inhaler) 1 puffs INH DAILY MARY Stop: 02/24/24 08:59 Last Admin: 01/25/24 08:49 Dose: 1 puffs Heparin Sodium (Porcine) (Heparin Sod 5,000 Unit/0.5 Ml Vial) 5,000 units SQ Q12 MARY Stop: 02/23/24 20:59 Last Admin: 01/25/24 08:49 Dose: 5,000 units Lisinopril (Lisinopril 40 Mg Tab) 40 mg PO SuMoWeFr@0900 [facility] Stop: 02/24/24 08:59 Last Admin: 01/25/24 08:48 Dose: 40 mg Loperamide HCl (Loperamide Hcl 2 Mg Cap) 2 mg PO QID PRN PRN Reason: Diarrhea Stop: 02/23/24 17:41 Midodrine (Midodrine Hcl 2.5 Mg Tab) 2.5 mg PO TuThSa@1200 [facility] Stop: 02/23/24 17:41 Last Admin: 01/24/24 20:36 Dose: Not Given Miscellaneous (Order Awaiting Action [Fluorometholone 0.1 % Drops,Suspension]) 1 each N/A QS [facility] Stop: 02/24/24 00:00 Last Admin: 01/25/24 08:49 Dose: Not Given Valacyclovir HCl (Valacyclovir Hcl 500 Mg Tablet) 500 mg PO DAILY@1600 [facility] Stop: 02/24/24 15:59 Vitamin B Complex/Folic Acid (Nephrocaps) 1 cap PO QAM [facility] Stop: 02/24/24 08:59 Last Admin: 01/25/24 08:48 Dose: 1 cap (4) Mitral regurgitation Cardiac valve disease etiology: nonrheumatic Qualified Code(s): I34.0 - Nonrheumatic mitral (valve) insufficiency
[2024-01-25 11:30] LABS: Macrocytosis Present
--- NOTE | 2024-01-25 13:26 | Hospitalist Progress Note ---
Date of Service January 25, 2024 Assessment & Plan (1) Pre-syncope: Plan: Presyncope Likely due to labile blood pressure DD: Arrhythmias Normal orthostatics -ECHO: EF 60 to 65%. Left atrium is moderately dilated. Mild focal calcification of the posterior leaflet of mitral valve. Moderate to severe mitral regurgitation. Consider CT head if patient has persistent dizziness Appreciate cardiology input Monitor for any arrhythmias Needs ZIO monitor as outpatient (2) Generalized weakness: Plan: Requested PT OT evaluation (3) ESRD on hemodialysis: Plan: Appreciate nephrology input Continue dialysis per nephrology (4) Chronic respiratory failure with hypoxia, on home O2 therapy: Plan: Has been requiring 3.5 L to maintain saturation Continue dialysis to help with volume management (5) Paroxysmal atrial fibrillation: Plan: Not on anticoagulation due to history of significant GI bleed, chronic anemia, fall risk Continue amiodarone (6) DM type 2 (diabetes mellitus, type 2): Plan: Continue insulin while hospitalized Monitor BGs (7) Anemia of chronic disease: Plan: Hemoglobin at baseline Monitor (8) COPD, moderate: Plan: No signs of acute exacerbation Continue home inhalers (9) Diastolic CHF: Plan: Volume status managed through dialysis Continue home medications (10) HTN (hypertension): Plan: Blood pressure labile Continue home medications Monitor Plan DVT Px: Heparin SQ CODE STATUS Full Admission and Anticipated Discharge Date Admission Date: January 24, 2024 Subjective Patient is seen and examined at bedside States feeling tired today Also reports minimal dizziness associated with generalized weakness No other complaints Denies any chest pain, dyspnea, nausea, vomiting, abdominal pain Review of Systems Review of Systems: All systems reviewed & are unremarkable except as noted in Subjective Physical Exam Physical Exam: Physical Exam: Vitals signs as noted above General Appearance:Moderately built and nourished, no apparent distress Head: normocephalic, Atraumatic Eyes: normal inspection, EOMI Neck: supple, Trachea midline Respiratory/Chest: Decreased breath sounds, minimal crackles, No accessory muscle use Cardiovascular: S1, S2,+ murmur Abdomen/GI:Soft, Non tender, Bowel sounds present Extremities/Musculoskeletal:normal inspection, no edema Neurologic/Psych:AAOX3, grossly no focal neurological deficits Skin: normal color, warm Results & Data Results & Data Vital Signs (Past 12 Hours) Vital Signs Temp Pulse Pulse Resp BP Pulse Ox O2 Del Method 01/25/24 11:30 36.9 C 58 L 20 109/59 L 92 Nasal Cannula 01/25/24 11:22 98 01/25/24 08:38 Nasal Cannula 01/25/24 07:42 37.0 C 76 16 159/64 H 97 Nasal Cannula 01/25/24 07:10 61 01/25/24 03:25 36.8 C 61 18 145/56 H 93 Nasal Cannula O2 Flow Rate 01/25/24 11:30 3 01/25/24 11:22 01/25/24 08:38 3 01/25/24 07:42 3 01/25/24 07:10 01/25/24 03:25 3 Laboratory Results Short CBC 01/25/24 Range/Units 06:12 WBC 4.78 L (4.8-10.8) K/ul Hgb 10.7 L (12.0-16.0) g/dl Hct 30.7 L (37.0-47.0) % Plt Count 127 L (130-400) K/uL BMP 01/25/24 06:12 Sodium 140 Potassium 4.4 Chloride 102 Carbon Dioxide 28 BUN 28 H D Creatinine 5.60 H* D Glucose 73 Calcium 9.0
[2024-01-25] MEDS: valACYclovir HCL 500 MG TABLET PO SCH (17:24)
[2024-01-26 00:09] LABS: Adenovirus F 40/41 PCR Not Detected (NotDetected); Astrovirus PCR Not Detected (NotDetected); Campylobacter PCR Not Detected (NotDetected); Cryptosporidium PCR Not Detected (NotDetected); Cyclospora cayetanensis PCR Not Detected (NotDetected); Entamoeba histolytica PCR Not Detected (NotDetected); Enteroaggregative E.coli(EAEC) Not Detected (NotDetected); Enteropathogenic E.coli (EPEC) Not Detected (NotDetected); Enterotoxigenic E.coli (ETEC) Not Detected (NotDetected); Giardia lamblia PCR Not Detected (NotDetected); Norovirus GI/GII PCR Not Detected (NotDetected); Plesiomonas shigelloides PCR Not Detected (NotDetected); Rotavirus A PCR Not Detected (NotDetected); Salmonella PCR Not Detected (NotDetected); Sapovirus PCR Not Detected (NotDetected); Shiga-like Toxin E.coli (STEC) Not Detected (NotDetected); Shigella/Enteroinvasive E.coli Not Detected (NotDetected); Vibrio cholerae PCR Not Detected (NotDetected); Vibrio species PCR Not Detected (NotDetected); Yersinia enterocolitica PCR Not Detected (NotDetected)
[2024-01-26 07:50] LABS: Calcium 9.1 mg/dl (8.6-10.3); Creatinine Clr Calc Pharmacy 6.4 ml/min; Potassium 4.4 mmol/L (3.5-5.1)
[2024-01-26] MEDS: LOPERAMIDE HCL 2 MG CAP PO PRN (08:34)
--- NOTE | 2024-01-26 10:49 | Cardiology Progress Note ---
Date of Service January 26, 2024 Assessment & Plan (1) Pre-syncope: (2) Generalized weakness: (3) Mitral valve annular calcification: (4) Mitral regurgitation: (5) Paroxysmal atrial fibrillation: (6) Labile hypertension: (7) Dialysis patient: Plan 01/25/24 Patient admitted with weakness, pre syncope. Long history of labile hypertension with dialysis. Remains on lisinopril for HTN and midodrine during dialysis 3 days per week. EKG demonstrated NSR with 1st degree AV block HS troponin unremarkable. Telemetry reveals NSR and Sinus bradycardia with HR ranging 55-65. No pauses/high degree AV block. No symptomatic bradycardia. She has a long history of PAF, maintained on amiodarone 200 mg daily. She has been deemed not a candidate for anticoagulation due to history of significant GI bleed, chronic anemia and fall risk. Recent LFT"s and TSH within normal limits Stable QT/QTc findings on EKG. Continue amiodarone. Outpatient ZIO monitor recommended for further evaluation of arrhythmias contributing to her presyncope. She also has a long history of mitral valve calcification with moderate/severe MR. This has been followed for many years and conservative therapies recommended and preferred by patient. Echo during admission is stable with preserved LVEF. Mild pulm vascular congestion on chest xray. She reports ongoing cough but SOB is stable per patient Volume status is managed with HD. She does not examine as significantly hypervolemic. Continue current medications No indication for further cardiac testing. Can maintain telemetry during admission. Continue Lisinopril and amiodarone. Will arrange outpatient ZIO monitor on discharge and cardiology follow up in [place]. 01/26/24: Patient seen during dialysis. NO recurrent presyncopal episodes. No dizziness No arrhythmias noted on telemetry. Continue amiodarone. Mild sinus bradycardia noted but no pauses or high degree AV block Outpatient radiation monitor to be arranged upon discharge. Long history of labile hypertension noted. Hypotensive episodes during dialysis. Continue midodrine with dialysis. Echo with stable calcification of the mitral valve and preserved EF. At this time, no further cardiac testing recommended as an inpatient. Will sign off. Please contact concrete gun operator provider with additional questions or concerns. Case discussed with Dr. Somers I spent a total of 30 minutes on the date of service in preparation, delivery, and documentation of the care provided to this patient, excluding any time spent in the performance of separately billed services. Christin Mahoney PA-C Department of Cardiology, [facility] This chart was completed in part utilizing Speech Voice Recognition Software. Grammatical errors, random word insertions, pronoun errors, and incomplete sentences are an occasional consequence of this system due to software limitat ions, ambient noise, and hardware issues. Any formal questions or concerns about the content, text, or information contained within the body of this dictation should be directly addressed to the provider for clarification. Admission and Anticipated Discharge Date Admission Date: January 24, 2024 Supervising Physician Co-Signing Physician Notes Attending attestation: Case reviewed with the advanced practitioner. I have personally performed a history and physical examination on the patient. I have reviewed the advanced practitioner's documentation on the date of service referenced in note, and I agree with, and take responsibility for the plan of care. I spent a total of 20 minutes coordinating, documenting, and providing care for this patient excluding time spent in the performance of separately billed services or time spent by another provider. Suhas Somers, DO Subjective Patient see during dialysis. Feels fatigued/weak, but denies acute cardiac complaints. No recurrent presyncope or dizziness. No chest pain or SOB. Review of Systems Review of Systems: All systems reviewed & are unremarkable except as noted in HPI & below Physical Exam Constitutional: WD/WN, vitals as above no acute distress Neck: trachea midline, no thyromegaly normal visual inspection Respiratory: no labored breathing Auscultation: + diminished lung sounds Cardiovascular: Rate/Rhythm: regular rate and regular rhythm Heart Sounds: + murmur (II/ systolic murmur) Vessels: no JVD Extremities: no edema Gastrointestinal (Abdomen): normal bowel sounds, soft, nontender, no hepato splenomegaly Musculoskeletal: no cyanosis or clubbing, extremities motor strength 5/5 Neurologic: PERRL, EOMI, accommodation nl, no face palsy, no dysarthria Results & Data Vital Signs (Past 12 Hours) Vital Signs Temp Pulse Pulse Pulse Resp BP BP 01/26/24 10:30 53 L 93/42 L 01/26/24 10:19 63 94/50 L 01/26/24 10:09 56 L 89/40 L 01/26/24 10:00 57 L 82/42 L 01/26/24 09:30 52 L 116/52 L 01/26/24 09:24 55 L 108/51 L 01/26/24 09:20 01/26/24 09:14 36.5 C 55 L 01/26/24 07:24 36.7 C 54 L 18 106/62 01/26/24 07:08 58 L 01/26/24 02:58 37.1 C 59 L 18 138/63 01/25/24 23:13 37.0 C 60 18 128/55 L 01/25/24 22:52 Pulse Ox O2 Del Method O2 Flow Rate 01/26/24 10:30 01/26/24 10:19 01/26/24 10:09 01/26/24 10:00 01/26/24 09:30 01/26/24 09:24 01/26/24 09:20 Nasal Cannula 3 01/26/24 09:14 01/26/24 07:24 100 Nasal Cannula 4 01/26/24 07:08 01/26/24 02:58 97 Nasal Cannula 3 01/25/24 23:13 99 Nasal Cannula 3 01/25/24 22:52 Nasal Cannula 3 Laboratory Results Comprehensive Metabolic Panel 01/26/24 Range/Units 06:56 Sodium 141 (136-145) mmol/L Potassium 4.4 (3.5-5.1) mmol/L Chloride 102 (98-107) mmol/L Carbon Dioxide 26 (21-32) mmol/L BUN 54 H D (6-23) mg/dl Creatinine 7.75 H* D (0.6-1.2) mg/dl Glucose 96 (70-99(Fasting)) mg/dl Calcium 9.1 (8.6-10.3) mg/dl Intake and Output 01/25/24 01/26/24 01/26/24 22:59 06:59 14:59 Intake Total 75 / 415 Output Total 2 / 2 Balance - 75 / 413 Intake: Oral 75 / 415 Output: # Bowel Movements 2 / 2 Other: Other Intake Source 200 Weight 74.9 kg Weight Measurement Method Built in [facility] Patient Weight 01/27/24 06:59 Weight 74.9 kg Diagnostic Findings Telemetry reviewed: NSR and mild sinus bradycardia with HR ranging 45-65 bmp. No symptomatic bradycardia. No pauses or high degree AV block Echo report reviewed dated 01/24/24: LVEF at 60-65% LA is moderately dilated Mild focal calcification of the posterior leaflet of the MV. Moderate to severe MR noted Compared with prior studies, calcification of the mitral valve is unchanged Medications Administered Current Inpatient Medications Acetaminophen (Acetaminophen 325 Mg Tab) 650 mg PO Q6H PRN PRN Reason: Pain Stop: 02/23/24 17:41 Last Admin: 01/25/24 08:47 Dose: 650 mg Albuterol (Albuterol Hfa 8 Gm Inhaler) 2 puffs INH Q4H PRN PRN Reason: Wheezing Stop: 02/23/24 17:41 Albuterol (Albut/Ipratrop 3mg/0.5mg Neb 3 Ml Vial) 3 ml INH QID PRN; Protocol PRN Reason: Shortness Of Breath Stop: 02/23/24 17:41 Amiodarone HCl (Amiodarone 200 Mg Tab) 200 mg PO DAILY MARY Stop: 02/24/24 08:59 Last Admin: 01/26/24 08:35 Dose: Not Given Docusate Sodium (Docusate Sodium 100 Mg Cap) 100 mg PO BID PRN PRN Reason: Constipation Stop: 02/23/24 17:41 Last Admin: 01/25/24 08:47 Dose: 100 mg Fluticasone Propionate (Fluticasone Propionate Na Spr 16 Gm Btl) 2 sprays NA HS MARY Stop: 02/23/24 20:59 Last Admin: 01/25/24 21:16 Dose: 2 sprays Fluticasone/Vilanterol (Fluticasone/Vilanterol 200/25mcg 14 Puffs/Inhaler) 1 puffs INH DAILY MARY Stop: 02/24/24 08:59 Last Admin: 01/26/24 08:31 Dose: 1 puffs Heparin Sodium (Porcine) (Heparin Sod 5,000 Unit/0.5 Ml Vial) 5,000 units SQ Q12 MARY Stop: 02/23/24 20:59 Last Admin: 01/26/24 08:34 Dose: 5,000 units Heparin Sodium (Porcine) (Heparin Sod (Porcine) 1000 Unit/Ml) 800 units IV Q1H MARY Stop: 01/26/24 10:46 Heparin Sodium (Porcine) (Heparin Sod (Porcine) 1000 Unit/Ml) 2,000 units IV ONE ONE Stop: 01/26/24 10:36 Lisinopril (Lisinopril 40 Mg Tab) 40 mg PO SuMoWeFr@0900 [facility] Stop: 02/24/24 08:59 Last Admin: 01/25/24 08:48 Dose: 40 mg Loperamide HCl (Loperamide Hcl 2 Mg Cap) 2 mg PO QID PRN PRN Reason: Diarrhea Stop: 02/23/24 17:41 Last Admin: 01/26/24 08:34 Dose: 2 mg Midodrine (Midodrine Hcl 2.5 Mg Tab) 2.5 mg PO TuThSa@1200 [facility] Stop: 02/23/24 17:41 Last Admin: 01/24/24 20:36 Dose: Not Given Miscellaneous (Order Awaiting Action [Fluorometholone 0.1 % Drops,Suspension]) 1 each N/A QS [facility] Stop: 02/24/24 00:00 Last Admin: 01/26/24 07:57 Dose: Not Given Valacyclovir HCl (Valacyclovir Hcl 500 Mg Tablet) 500 mg PO DAILY@1600 [facility] Stop: 02/24/24 15:59 Last Admin: 01/25/24 17:24 Dose: 500 mg Vitamin B Complex/Folic Acid (Nephrocaps) 1 cap PO QAM [facility] Stop: 02/24/24 08:59 Last Admin: 01/26/24 08:32 Dose: 1 cap (4) Mitral regurgitation Cardiac valve disease etiology: nonrheumatic Qualified Code(s): I34.0 - Nonrheumatic mitral (valve) insufficiency
[2024-01-26] MEDS: HEPARIN SOD (PORCINE) 1000 UNIT/ML IV ONE (11:03)
--- NOTE | 2024-01-26 11:13 | Dialysis Progress Note ---
Date of Service January 26, 2024 Assessment & Plan (1) ESRD (end stage renal disease): Plan: ESRD on HD-TTS; had 3L UF on 01/23; goal of 4L today but no way she'll tolerate this She will be dialyzed today for 3.5 hrs and take 1-1.5 kilo as tolerated. Will try to optimize her volume status which would help her breathing but also balance this w/ symptomatic hypotension >continue midodrine > given early today plts in 120s today, stable; have been in this range x mos and some dropping TMP > d/w swager operator and will give her routine OP heparin 2K bolus now (late) and then 800 unit hourly bolus for rest of tx Continue on outpatient medications. Next HD on 01/27 or as clinical needs dictate From neph standpoint could be d/c and continue HD at rehab nephro dispo, BP status, goals of care including rehab recommendations reviewed w/ Dr Reyna in person; we are in agreement. (2) Pre-syncope: Plan: Likley postural in nature - Ongoing work up as per primary. Admission and Anticipated Discharge Date Admission Date: January 24, 2024 Subjective no diarrhea ON and none this am so far; SBP still soft and getting midodrine early; seen on dialysis. tells me she's weak and tired; actually agreed to rehab; diarrhea has slowed she thinks Review of Systems 2 Review of Systems: All systems reviewed & are unremarkable except as noted in Subjective Physical Exam 2 Constitutional: well developed, well nourished, + frail appearing (very tired) and cooperative; no acute distress Eyes: EOM intact bilaterally ENMT: Mouth: + dry oral mucous membranes Respiratory: normal respiratory effort and + cough (thick hacking (baseline)) Auscultation: + diminished lung sounds Cardiovascular: RRR, no murmur, no edema Extremities: + AV fistula Gastrointestinal (Abdomen): Inspection/Auscultation: normal bowel sounds P ercussion/Palpation: abdomen soft; abdomen nontender Musculoskeletal: Extremities: strength 5/5 throughout Skin: no rashes, warm and dry Neurologic: louie, fluent speech, no tremor Results & Data Vital Signs (Past 12 Hours) Vital Signs Temp Pulse Pulse Pulse Resp BP BP 01/26/24 11:00 52 L 103/42 L 01/26/24 10:45 55 L 96/46 L 01/26/24 10:30 53 L 93/42 L 01/26/24 10:19 63 94/50 L 01/26/24 10:09 56 L 89/40 L 01/26/24 10:00 57 L 82/42 L 01/26/24 09:30 52 L 116/52 L 01/26/24 09:24 55 L 108/51 L 01/26/24 09:20 01/26/24 09:14 36.5 C 55 L 01/26/24 07:24 36.7 C 54 L 18 106/62 01/26/24 07:08 58 L 01/26/24 02:58 37.1 C 59 L 18 138/63 01/25/24 23:13 37.0 C 60 18 128/55 L Pulse Ox O2 Del Method O2 Flow Rate 01/26/24 11:00 01/26/24 10:45 01/26/24 10:30 01/26/24 10:19 01/26/24 10:09 01/26/24 10:00 01/26/24 09:30 01/26/24 09:24 01/26/24 09:20 Nasal Cannula 3 01/26/24 09:14 01/26/24 07:24 100 Nasal Cannula 4 01/26/24 07:08 01/26/24 02:58 97 Nasal Cannula 3 01/25/24 23:13 99 Nasal Cannula 3 Laboratory Results 01/25/24 06:12 01/26/24 06:56
[2024-01-26] MEDS: HEPARIN SOD (PORCINE) 1000 UNIT/ML IV SCH (11:32)
--- NOTE | 2024-01-26 15:07 | Hospitalist Progress Note ---
Date of Service January 26, 2024 Assessment & Plan (1) Pre-syncope: Plan: Presyncope Likely due to labile blood pressure DD: Arrhythmias Normal orthostatics -ECHO: EF 60 to 65%. Left atrium is moderately dilated. Mild focal calcification of the posterior leaflet of mitral valve. Moderate to severe mitral regurgitation. Consider CT head if patient has persistent dizziness Appreciate cardiology input Monitor for any arrhythmias: Sinus bradycardia but no pauses Needs ZIO monitor as outpatient Plan to discharge to rehab facility when accepted (2) Generalized weakness: Plan: Continue PT OT Diarrhea Stool PCR, stool for C. difficile negative Monitor (3) ESRD on hemodialysis: Plan: Appreciate nephrology input Continue dialysis per nephrology (4) Chronic respiratory failure with hypoxia, on home O2 therapy: Plan: Has been requiring 3.5 L to maintain saturation Continue dialysis to help with volume management (5) Paroxysmal atrial fibrillation: Plan: Not on anticoagulation due to history of significant GI bleed, chronic anemia, fall risk Continue amiodarone (6) DM type 2 (diabetes mellitus, type 2): Plan: Continue insulin while hospitalized Monitor BGs (7) Anemia of chronic disease: Plan: Hemoglobin at baseline Monitor (8) COPD, moderate: Plan: No signs of acute exacerbation Continue home inhalers (9) Diastolic CHF: Plan: Volume status managed through dialysis Continue home medications (10) HTN (hypertension): Plan: Blood pressure labile Continue home medications Monitor Plan DVT Px: Heparin SQ CODE STATUS Full Disposition Rehab when accepted Admission and Anticipated Discharge Date Admission Date: January 24, 2024 Subjective Patient is seen and examined at bedside Had hemodialysis earlier today Continues to complain of generalized weakness, fatigue Reports dizziness intermittently No diarrhea today No other complaints Review of Systems Review of Systems: All systems reviewed & are unremarkable except as noted in Subjective Physical Exam Physical Exam: Physical Exam: Vitals signs as noted above General Appearance:Moderately built and nourished, no apparent distress Head: normocephalic, Atraumatic Eyes: normal inspection, EOMI Neck: supple, Trachea midline Respiratory/Chest: Decreased breath sounds, minimal crackles, No accessory muscle use Cardiovascular: S1, S2,+ murmur Abdomen/GI:Soft, Non tender, Bowel sounds present Extremities/Musculoskeletal:normal inspection, no edema Neurologic/Psych:AAOX3, grossly no focal neurological deficits Skin: normal color, warm Results & Data Results & Data Vital Signs (Past 12 Hours) Vital Signs Temp Pulse Pulse Pulse Resp BP BP 01/26/24 14:40 01/26/24 14:39 36.6 C 60 20 116/69 01/26/24 14:23 01/26/24 13:13 36.3 C L 56 L 110/56 L 01/26/24 12:30 57 L 104/52 L 01/26/24 12:00 58 L 111/54 L 01/26/24 11:30 55 L 114/47 L 01/26/24 11:00 52 L 103/42 L 01/26/24 10:45 55 L 96/46 L 01/26/24 10:30 53 L 93/42 L 01/26/24 10:19 63 94/50 L 01/26/24 10:09 56 L 89/40 L 01/26/24 10:00 57 L 82/42 L 01/26/24 09:30 52 L 116/52 L 01/26/24 09:24 55 L 108/51 L 01/26/24 09:20 01/26/24 09:14 36.5 C 55 L 01/26/24 07:24 36.7 C 54 L 18 106/62 01/26/24 07:08 58 L Pulse Ox O2 Del Method O2 Flow Rate 01/26/24 14:40 Nasal Cannula 3 01/26/24 14:39 100 Nasal Cannula 3 01/26/24 14:23 100 01/26/24 13:13 01/26/24 12:30 01/26/24 12:00 01/26/24 11:30 01/26/24 11:00 01/26/24 10:45 01/26/24 10:30 01/26/24 10:19 01/26/24 10:09 01/26/24 10:00 01/26/24 09:30 01/26/24 09:24 01/26/24 09:20 Nasal Cannula 3 01/26/24 09:14 01/26/24 07:24 100 Nasal Cannula 4 01/26/24 07:08 Laboratory Results BMP 01/26/24 06:56 Sodium 141 Potassium 4.4 Chloride 102 Carbon Dioxide 26 BUN 54 H D Creatinine 7.75 H* D Glucose 96 Calcium 9.1
[2024-01-26] MEDS: PROMETHAZINE 6.25 MG/50.25 ML BAG IV PRN (16:31)
--- NOTE | 2024-01-26 20:57 | Communication Note ---
Date of Service: January 26, 2024
[2024-01-26] MEDS: ONDANSETRON INJ 2 MG/ML 2 ML VIAL IV STA (20:59)
--- NOTE | 2024-01-27 03:24 | CT Scan Report ---
Exam(s): CT ABDOMEN + PELVIS Without Contrast EXAM: CT Abdomen and Pelvis Without Intravenous Contrast CLINICAL HISTORY: Reason for exam: abd pain nv. TECHNIQUE: Axial computed tomography images of the abdomen and pelvis without intravenous contrast. CTDI is 18.95 mGy and DLP is 886.83 mGy-cm. Automated exposure control was utilized for the study. A dose lowering technique was utilized adhering to the principles of ALARA. COMPARISON: FINDINGS: Lung bases: Unremarkable. No mass. No consolidation. ABDOMEN: Liver: Unremarkable. Gallbladder and bile ducts: Postoperative changes prior cholecystectomy. No ductal dilation. Pancreas: Unremarkable. No ductal dilation. Spleen: 3.2 cm splenic cyst. Adrenals: Unremarkable. No mass. Kidneys and ureters: Atrophic kidneys. No obstructing stones. No hydronephrosis. Stomach and bowel: Unremarkable. No obstruction. No mucosal thickening. PELVIS: Appendix: No findings to suggest acute appendicitis. Bladder: Unremarkable. No stones. Reproductive: Uterus is surgically absent. ABDOMEN and PELVIS: Intraperitoneal space: Unremarkable. No free air. No significant fluid collection. Bones/joints: No acute fracture. No dislocation. Soft tissues: Unremarkable. Vasculature: Unremarkable. No abdominal aortic aneurysm. Lymph nodes: Unremarkable. No enlarged lymph nodes. IMPRESSION: No acute findings in the abdomen or pelvis. Electronically signed by: Pilo Otto MD 01/27/24 03:23 AM
[2024-01-27] MEDS: FAMOTIDINE 10 MG TABLET PO ONE (04:55)
[2024-01-27 06:41] LABS: Hematocrit (blood only) 37.3 % (37.0-47.0); Hemoglobin 12.3 g/dl (12.0-16.0); Mean Corpuscular Hemoglobin 39.2 pg (25.0-34.0); Mean Corpuscular Volume 118.8 fL (80.0-100.0); Mean Platelet Volume 11.2 fL (9.4-12.4); Platelet Count 160 K/uL (130-400); RDW Coefficient of Variation 13.2 % (11.5-14.5); RDW Standard Deviation 58.3 fL (36.4-46.3); Red Blood Count 3.14 M/uL (4.20-5.40); White Blood Count 16.04 K/ul (4.8-10.8)
[2024-01-27 07:15] LABS: BUN Creatinine Ratio 4.9 (10-20); Calcium 9.7 mg/dl (8.6-10.3); Creatinine Clr Calc Pharmacy 9.3 ml/min; Magnesium 2.1 mg/dl (1.7-2.4); Potassium 4.3 mmol/L (3.5-5.1)
[2024-01-27 10:54] LABS: Hep B Surface Ag with confirm Negative (Negative)
[2024-01-27 11:02] LABS: Hepatitis B Surface Ab Quant > 500.00 mIU/mL (>or=10mIU/mL Immune); Hepatitis B Surface Antibody Immune
--- NOTE | 2024-01-27 11:26 | Nephrology Progress Note ---
Date of Service January 27, 2024 Assessment & Plan (1) ESRD (end stage renal disease): Plan: ESRD on HD-TTS; had 3L UF on 01/23; got 1.5L UF on 01/25 She will be dialyzed tomorrow if still in house as I suspect she will be given abd pain for 3.5 hrs and take 1-1.5 kilo as tolerated. Orders in >continue midodrine w/ dialysis plts in 160s today, better than baseline >> needs 2K heparin bolus and 800 units hourly heparin to run well on tx, to keep TMP at goal Continue on outpatient medications. Next HD on 01/27 From neph standpoint could be d/c and continue HD at rehab >> however abd pain/N will limit d/c today abd pain issues and N reviewed w/ Dr Reyna as well as dialysis plans via [employer]; we are in agreement (2) Abdominal pain: Plan: w/ unremarkable CT but ongoing and w/ some guarding/rebound; and w/ N >> WBC increased 4K > 16K w/o steroids in 48 hrs >>per primary service (3) Pre-syncope: Plan: Likley postural in nature - Ongoing work up as per primary. Admission and Anticipated Discharge Date Admission Date: January 24, 2024 Subjective extremely N this am and tired and w/ abd pain; ate no breakfast; CT a/p last evening w/o acute process. no issues w/ dialysis tx yesterday > no cramps Review of Systems 2 Review of Systems: All systems reviewed & are unremarkable except as noted in Subjective Physical Exam 2 Constitutional: well developed, well nourished, + frail appearing (very tired again) and cooperative; no acute distress Eyes: EOM intact bilaterally ENMT: Mouth: + dry oral mucous membranes Respiratory: normal respiratory effort; no cough Auscultation: + diminished lung sounds Cardiovascular: RRR, no murmur, no edema Extremities: + AV fistula Gastrointestinal (Abdomen): Inspection/Auscultation: normal bowel sounds P ercussion/Palpation: + abdomen tender (maria dolores LLQ > RUQ and mildly epigstrium), + guarding and abdomen soft Musculoskeletal: Extremities: strength 5/5 throughout Skin: no rashes, warm and dry Results & Data Vital Signs (Past 12 Hours) Vital Signs Temp Pulse Pulse Resp BP Pulse Ox O2 Del Method 01/27/24 09:41 Nasal Cannula 01/27/24 07:53 37.0 C 59 L 18 112/60 97 Nasal Cannula 01/27/24 07:00 64 01/27/24 04:39 37.2 C 62 16 118/49 L 96 Nasal Cannula O2 Flow Rate 01/27/24 09:41 3 01/27/24 07:53 3 01/27/24 07:00 01/27/24 04:39 3 Laboratory Results 01/27/24 06:25 01/27/24 06:25
--- NOTE | 2024-01-27 12:43 | XRay Report ---
KUB HISTORY: Acute generalized abdominal pain abd pain COMPARISON: KUB 12/31/2023, CT 01/26/2024. FINDINGS: Endovascular coils project over the gastroduodenal artery. The bowel gas pattern is normal. There is no radiographic evidence for a bowel obstruction. No evidence for free air on supine exam. Avascular necrosis of the femoral heads. No acute fracture identified. Vascular calcifications. IMPRESSION: 1. Nonobstructive bowel gas pattern. 2. Avascular necrosis of the femoral heads. ACT 112: Negative or not required by law. The above report was generated using voice recognition software. It may contain grammatical, syntax o r spelling errors. Electronically signed by: Elder Osborn M.D. 01/27/2024 12:42 PM
--- NOTE | 2024-01-27 12:58 | Surgery Consultation ---
<Statement entered by Jose Hart MD - 01/27/24 13:30> Patient seen and examined. Agree with plan. Date of Consultation January 27, 2024 Assessment & Plan (1) Abdominal pain: (2) Generalized weakness: (3) Diarrhea: Plan 78 year-old female with multiple medical comorbidities presented to ED with generalized weakness and syncope. Recent c. diff infection treated as outpatient in last few weeks. Diarrhea here at hospital last two days, stool studies negative. Abdominal pain constant, negative CT scan of abd/pelvis without contrast, negative KUB. Abdominal exam : soft, nondistended, tender in left abdomen with some guarding but no peritonitis. ? of some transient ischemic bowel due to hypotension, vomiting, and diarrhea. No acute surgical intervention recommended, continue conservative measures with IV fluids, pain management and antiemetics as needed, clear liquid diet recommended and slowly increase as tolerated. Discussed with Dr. Hart who agrees with above. History of Present Illness Reason for Consultation: Abdominal Pain Requesting Physician: Jono Reyna MD Attending Physician: Jono Reyna MD History of Present Illness Flaquita is a 78 yo female with history of ESRD on dialysis, DM type 2, osteoarthritis, diastolic CHF, HTN, GI bleed, COPD on oxygen, PAF, CAD iwth NSTEMI, who was recently treated for c. diff infection a few weeks ago presented to ED due to generalized weakness and syncope. She was not having diarrhea prior to presenting to ED but has had diarrhea here in hospital in last two days with vomiting. BLood pressure dropped last evening with systolic in the 80's. She states she has been having intermittent abdominal pain but not as severe and now persistent since last evening. Nauseated but no vomiting today. No appetite. No blood in stools. No vomiting blood. CT scan of abd/pelvis without contrast last evening was unremarkable. KUB today showed no acute abdominal findings. Currently very fatigued, feeling nauseated, no appetite. Pain is mostly on left side but also generalized, dull aching pain per patient. Allergies Allergy/AdvReac Type Severity Reaction Status Date / Time chlorhexidine Allergy Intermediate ITCHING Verified 05/24/23 14:59 Home Medications Medication Instructions Recorded Confirmed Type ipratropium 0.5 mg-albuterol 3 mg 3 ml inhalation QID PRN Shortness 09/26/18 01/24/24 History (2.5 mg base)/3 mL nebulization Of Breath soln vitamin B complex-vitamin C-folic 1 tab PO QAM 09/26/18 01/24/24 History acid 0.8 mg tablet (Arabella-Tika) fluticasone propionate 50 2 spray intranasal HS 01/18/19 01/24/24 History mcg/actuation nasal spray,suspension albuterol sulfate 90 mcg/actuation 2 puff inhalation Q4H PRN Wheezing 04/05/19 01/24/24 History aerosol inhaler acetaminophen 325 mg tablet 650 mg PO Q6H PRN Pain 04/14/21 01/24/24 History (Tylenol) camphor-menthol 0.5 %-0.5 % lotion 1 applic topical DIRECTED PRN 04/14/21 01/24/24 History Itching epoetin gabriel 10,000 unit/mL 0 unit IV DIRECTED 04/14/21 01/24/24 History injection solution (Procrit) lidocaine-prilocaine 2.5 %-2.5 % 1 applic topical DIRECTED PRN 04/14/21 01/24/24 History topical cream PRIOR TO DIALYSIS lisinopril 40 mg tablet 40 mg PO 4XWK 04/14/21 01/24/24 History loperamide 2 mg capsule (Imodium 2 mg PO QID PRN Diarrhea 04/14/21 01/24/24 History A-D) valacyclovir 1 gram tablet 1,000 mg PO QAM 04/14/21 01/24/24 History fluorometholone 0.1 % eye 1 drp OPL QA 01/25/22 01/24/24 History drops,suspension amiodarone 200 mg tablet 200 mg PO DAILY 30 days #60 tabs 05/12/22 01/24/24 Rx docusate sodium 100 mg capsule 100 mg PO BID PRN Constipation 04/01/23 01/24/24 History (Colace) fluticasone furoate 200 1 inh inhalation DAILY 04/01/23 01/24/24 History mcg-vilanterol 25 mcg/dose inhalation powder (Breo Ellipta) midodrine 2.5 mg tablet 2.5 mg PO 3XWK 12/31/23 01/24/24 History lanthanum 500 mg chewable tablet 500 mg PO UD 01/24/24 01/24/24 History sevelamer carbonate 800 mg tablet 1,600 mg PO UD 01/24/24 01/24/24 History (Renvela) Patient History Medical History ESRD (end stage renal disease) on dialysis follows with Dr. Reed; Jory, Hillary, Sat - [facility] (since 02/2013) On home oxygen therapy 3 LPM cont History of colon polyps Tobacco use History of GI bleed Renal cyst H/O cardiovascular stress test "05/2013 - negative for ischemia" Pancreatic cyst Obesity Psoriasis Adrenal adenoma Surgical History History of surgery AVF creation History of intestinal surgery Family History Father Myocardial infarction, Onset Age: 64 Diabetes Mother , 87 Alzheimer disease Brother Diabetes Other No family history of adverse response to anesthesia Social History Smoking Status: Current every day smoker Tobacco Type: Cigarettes Cigarettes Per Day: 3; Second Hand Exposure: Yes; Do You Dip or Chew Tobacco: No; Tobacco Cessation Education Requested by Patient: No Hx Alcohol Use: No Hx Substance Use: No Preferred Language: Estonian Communication Ability: Effective Zigzag Stitcher 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 Beliefs That Will Affect Care: None marital status: / Current Living Situation: Alone current occupational status: retired How many Children do You have: 1 Other Information That Helps Us Care for You: No Feels Safe at Home: Yes Assistive Devices: Oxygen - Continuous and Walker Review of Systems Review of Systems: All systems reviewed & are unremarkable except as noted in HPI & below Physical Exam Constitutional: + ill appearing, + frail appearing, coop erative and + lethargic; no acute distress and not diaphoretic Respiratory: normal respiratory effort; no respiratory distress Gastrointestinal (Abdomen): Inspection/Auscultation: abdomen normal to inspection and + abdominal surgical scar (RUQ scar, lower laparotomy scar); abdomen not distended Percussion/Palpation: + abdomen tender (LUQ and LLQ on palpation,), + guarding (voluntary of Left abdomen) and abdomen soft; abdomen not rigid and abdomen not firm Skin: no rashes, warm and dry Psychiatric: Orientation: alert and oriented x 3 Results & Data Vital Signs (Past 12 Hours) Vital Signs Temp Pulse Pulse Resp BP Pulse Ox O2 Del Method 01/27/24 11:43 37.0 C 59 L 18 105/57 L 97 Room Air 01/27/24 09:41 Nasal Cannula 01/27/24 07:53 37.0 C 59 L 18 112/60 97 Nasal Cannula 01/27/24 07:00 64 01/27/24 04:39 37.2 C 62 16 118/49 L 96 Nasal Cannula O2 Flow Rate 01/27/24 11:43 01/27/24 09:41 3 01/27/24 07:53 3 01/27/24 07:00 01/27/24 04:39 3 Laboratory Results 01/27/24 01/27/24 Range/Units 09:45 06:25 WBC 16.04 H (4.8-10.8) K/ul RBC 3.14 L (4.20-5.40) M/uL Hgb 12.3 (12.0-16.0) g/dl Hct 37.3 (37.0-47.0) % MCV 118.8 H (80.0-100.0) fL MCH 39.2 H (25.0-34.0) pg MCHC 33.0 (32.0-36.0) g/dL RDW Std Deviation 58.3 H (36.4-46.3) fL RDW Coeff of Fior 13.2 (11.5-14.5) % Plt Count 160 (130-400) K/uL MPV 11.2 (9.4-12.4) fL Sodium 138 (136-145) mmol/L Potassium 4.3 (3.5-5.1) mmol/L Chloride 97 L (98-107) mmol/L Carbon Dioxide 30 (21-32) mmol/L Anion Gap 11 (3-11) BUN 26 H D (6-23) mg/dl Creatinine 5.33 H* D (0.6-1.2) mg/dl Est Cr Clr Drug Dosing 9.3 ml/min eGFR 7.84 BUN/Creatinine Ratio 4.9 L (10-20) Glucose 108 H (70-99(Fasting)) mg/dl Calcium 9.7 (8.6-10.3) mg/dl Magnesium 2.1 (1.7-2.4) mg/dl Hep Bs Antigen Negative (Negative) Hep Bs Antibody Immune Hep Bs Antibody, Quant > 500.00 (>or=10mIU/mL Immune) mIU/mL Diagnostic Findings Exam(s): CT ABDOMEN + PELVIS Without Contrast EXAM: CT Abdomen and Pelvis Without Intravenous Contrast CLINICAL HISTORY: Reason for exam: abd pain nv. TECHNIQUE: Axial computed tomography images of the abdomen and pelvis without intravenous contrast. CTDI is 18.95 mGy and DLP is 886.83 mGy-cm. Automated exposure control was utilized for the study. A dose lowering technique was utilized adhering to the principles of ALARA. COMPARISON: FINDINGS: Lung bases: Unremarkable. No mass. No consolidation. ABDOMEN: Liver: Unremarkable. Gallbladder and bile ducts: Postoperative changes prior cholecystectomy. No ductal dilation. Pancreas: Unremarkable. No ductal dilation. Spleen: 3.2 cm splenic cyst. Adrenals: Unremarkable. No mass. Kidneys and ureters: Atrophic kidneys. No obstructing stones. No hydronephrosis. Stomach and bowel: Unremarkable. No obstruction. No mucosal thickening. PELVIS: Appendix: No findings to suggest acute appendicitis. Bladder: Unremarkable. No stones. Reproductive: Uterus is surgically absent. ABDOMEN and PELVIS: Intraperitoneal space: Unremarkable. No free air. No significant fluid collection. Bones/joints: No acute fracture. No dislocation. Soft tissues: Unremarkable. Vasculature: Unremarkable. No abdominal aortic aneurysm. Lymph nodes: Unremarkable. No enlarged lymph nodes. IMPRESSION: No acute findings in the abdomen or pelvis. KUB HISTORY: Acute generalized abdominal pain abd pain COMPARISON: KUB 12/31/2023, CT 01/26/2024. FINDINGS: Endovascular coils project over the gastroduodenal artery. The bowel gas pattern is normal. There is no radiographic evidence for a bowel obstruction. No evidence for free air on supine exam. Avascular necrosis of the femoral heads. No acute fracture identified. Vascular calcifications. IMPRESSION: 1. Nonobstructive bowel gas pattern. 2. Avascular necrosis of the femoral heads.
--- NOTE | 2024-01-27 14:54 | Hospitalist Progress Note ---
Date of Service January 27, 2024 Assessment & Plan (1) Pre-syncope: Plan: Presyncope Likely due to labile blood pressure DD: Arrhythmias Normal orthostatics -ECHO: EF 60 to 65%. Left atrium is moderately dilated. Mild focal calcification of the posterior leaflet of mitral valve. Moderate to severe mitral regurgitation. Consider CT head if patient has persistent dizziness Appreciate cardiology input Monitor for any arrhythmias: Sinus bradycardia but no pauses Needs ZIO monitor as outpatient Plan to discharge to rehab facility when stable (2) Generalized weakness: Plan: Continue PT OT Abdominal pain Diarrhea Possible transient ischemic bowel due to hypotension from GI losses --CT ABD:No acute findings in the abdomen or pelvis. -Stool PCR, stool for C. difficile negative Hold lisinopril until blood pressure more stable Appreciate surgery input Gentle IV fluids Liquid diet for now Advance diet as tolerated Leukocytosis No clear source of infection Monitor (3) ESRD on hemodialysis: Plan: Appreciate nephrology input Continue dialysis per nephrology (4) Chronic respiratory failure with hypoxia, on home O2 therapy: Plan: Has been requiring 3.5 L to maintain saturation Continue dialysis to help with volume management (5) Paroxysmal atrial fibrillation: Plan: Not on anticoagulation due to history of significant GI bleed, chronic anemia, fall risk Continue amiodarone (6) DM type 2 (diabetes mellitus, type 2): Plan: Continue insulin while hospitalized Monitor BGs (7) Anemia of chronic disease: Plan: Hemoglobin at baseline Monitor (8) COPD, moderate: Plan: No signs of acute exacerbation Continue home inhalers (9) Diastolic CHF: Plan: Volume status managed through dialysis Continue home medications (10) HTN (hypertension): Plan: Blood pressure labile Resume antihypertensives as able On midodrine on dialysis days Monitor Plan DVT Px: Heparin SQ CODE STATUS Full Disposition Rehab when when stable Admission and Anticipated Discharge Date Admission Date: January 24, 2024 Subjective Patient is seen and examined at bedside States having nausea associated with abdominal pain and poor appetite today Discussed with nephrology and surgery today States feeling tired today Offers no other complaints Review of Systems Review of Systems: All systems reviewed & are unremarkable except as noted in Subjective Physical Exam Physical Exam: Physical Exam: Vitals signs as noted above General Appearance:Moderately built and nourished, no apparent distress Head: normocephalic, Atraumatic Eyes: normal inspection, EOMI Neck: supple, Trachea midline Respiratory/Chest: Decreased breath sounds, minimal crackles, No accessory muscle use Cardiovascular: S1, S2,+ murmur Abdomen/GI:Soft, + tender, Bowel sounds present Extremities/Musculoskeletal:normal inspection, no edema Neurologic/Psych:AAOX3, grossly no focal neurological deficits Skin: normal color, warm Results & Data Results & Data Vital Signs (Past 12 Hours) Vital Signs Temp Pulse Pulse Resp BP Pulse Ox O2 Del Method 01/27/24 11:43 37.0 C 59 L 18 105/57 L 97 Room Air 01/27/24 09:41 Nasal Cannula 01/27/24 07:53 37.0 C 59 L 18 112/60 97 Nasal Cannula 01/27/24 07:00 64 01/27/24 04:39 37.2 C 62 16 118/49 L 96 Nasal Cannula O2 Flow Rate 01/27/24 11:43 01/27/24 09:41 3 01/27/24 07:53 3 01/27/24 07:00 01/27/24 04:39 3 Laboratory Results Short CBC 01/27/24 Range/Units 06:25 WBC 16.04 H (4.8-10.8) K/ul Hgb 12.3 (12.0-16.0) g/dl Hct 37.3 (37.0-47.0) % Plt Count 160 (130-400) K/uL BMP 01/27/24 06:25 Sodium 138 Potassium 4.3 Chloride 97 L Carbon Dioxide 30 BUN 26 H D Creatinine 5.33 H* D Glucose 108 H Calcium 9.7
[2024-01-27] MEDS: SODIUM CHLORIDE 0.9% 500 ML IV ONE (15:07)
[2024-01-28 08:09] LABS: Hematocrit (blood only) 35.8 % (37.0-47.0); Mean Corpuscular Hemoglobin 39.6 pg (25.0-34.0); Mean Corpuscular Hgb Conc 33.5 g/dL (32.0-36.0); Mean Corpuscular Volume 118.2 fL (80.0-100.0); Mean Platelet Volume 11.6 fL (9.4-12.4); Platelet Count 172 K/uL (130-400); RDW Coefficient of Variation 13.3 % (11.5-14.5); RDW Standard Deviation 58.7 fL (36.4-46.3); Red Blood Count 3.03 M/uL (4.20-5.40); White Blood Count 14.49 K/ul (4.8-10.8)
[2024-01-28] MEDS: LIDOCAINE 4% CREAM 15 GM TUBE EXT PRN (08:10)
[2024-01-28 08:25] LABS: Calcium 9.5 mg/dl (8.6-10.3); Creatinine Clr Calc Pharmacy 6.6 ml/min; Potassium 4.7 mmol/L (3.5-5.1)
--- NOTE | 2024-01-28 12:00 | Surgery Progress Note ---
Date of Service January 28, 2024 Assessment & Plan (1) Abdominal pain: Plan: con't conservative measures WBC down advance diet as tolerated Admission and Anticipated Discharge Date Admission Date: January 24, 2024 Subjective patient with diarrhea this AM pain about the same taking po OK Review of Systems Constitutional: no fever and no chills Respiratory: no dyspnea Cardiovascular: no chest pain Gastrointestinal: + abdominal pain and + diarrhea/loose st ools; no nausea and no vomiting Physical Exam Constitutional: WD/WN, vitals as above Respiratory: normal respiratory effort, lungs clear to auscultation Cardiovascular: RRR, no murmur, no edema Gastrointestinal (Abdomen): Inspection/Auscultation: abdomen normal to inspection and normal bowel sounds; abdomen not distended Percussion/Palpation: + abdomen tender and abdomen soft; no guarding and abdomen not rigid Results & Data Vital Signs (Past 12 Hours) Vital Signs Temp Pulse Pulse Pulse Resp BP BP 01/28/24 11:15 01/28/24 11:00 58 L 85/42 L 01/28/24 10:30 56 L 119/48 L 01/28/24 10:00 56 L 94/39 L 01/28/24 09:50 36.5 C 56 L 01/28/24 08:10 36.7 C 57 L 20 122/63 01/28/24 07:07 58 L 01/28/24 02:00 36.7 C 60 14 116/58 L 01/28/24 00:19 01/28/24 00:17 58 L Pulse Ox O2 Del Method O2 Flow Rate 01/28/24 11:15 Nasal Cannula 3 01/28/24 11:00 01/28/24 10:30 01/28/24 10:00 01/28/24 09:50 01/28/24 08:10 99 Nasal Cannula 4 01/28/24 07:07 01/28/24 02:00 99 Room Air 01/28/24 00:19 Nasal Cannula 3 01/28/24 00:17
[2024-01-28] MEDS: HEPARIN SOD (PORCINE) 1000 UNIT/ML IV ONE (12:08)
[2024-01-28] MEDS: HEPARIN SOD (PORCINE) 1000 UNIT/ML IV SCH (12:09)
--- NOTE | 2024-01-28 12:37 | Hospitalist Progress Note ---
Date of Service January 28, 2024 Assessment & Plan (1) Pre-syncope: Plan: Presyncope Likely due to labile blood pressure DD: Arrhythmias Normal orthostatics -ECHO: EF 60 to 65%. Left atrium is moderately dilated. Mild focal calcification of the posterior leaflet of mitral valve. Moderate to severe mitral regurgitation. Consider CT head if patient has persistent dizziness Appreciate cardiology input Monitor for any arrhythmias: Sinus bradycardia but no pauses Needs ZIO monitor as outpatient Plan to discharge to rehab facility when stable (2) Generalized weakness: Plan: Continue PT OT Abdominal pain Diarrhea Possible transient ischemic bowel due to hypotension from GI losses --CT ABD:No acute findings in the abdomen or pelvis. -Stool PCR, stool for C. difficile negative Hold lisinopril until blood pressure more stable Appreciate surgery input Gentle IV fluids as needed Advance diet as tolerated Given history of C. difficile and ongoing diarrhea with abdominal pain, will empirically start on p.o. vancomycin Leukocytosis No clear source of infection Monitor (3) ESRD on hemodialysis: Plan: Appreciate nephrology input Continue dialysis per nephrology (4) Chronic respiratory failure with hypoxia, on home O2 therapy: Plan: Has been requiring 3.5 L to maintain saturation Continue dialysis to help with volume management (5) Paroxysmal atrial fibrillation: Plan: Not on anticoagulation due to history of significant GI bleed, chronic anemia, fall risk Continue amiodarone (6) DM type 2 (diabetes mellitus, type 2): Plan: Continue insulin while hospitalized Monitor BGs (7) Anemia of chronic disease: Plan: Hemoglobin at baseline Monitor (8) COPD, moderate: Plan: No signs of acute exacerbation Continue home inhalers (9) Diastolic CHF: Plan: Volume status managed through dialysis Continue home medications (10) HTN (hypertension): Plan: Blood pressure labile Resume antihypertensives as able On midodrine on dialysis days Monitor Plan DVT Px: Heparin SQ CODE STATUS Full Disposition Rehab when when stable Admission and Anticipated Discharge Date Admission Date: January 24, 2024 Subjective Patient is seen and examined at bedside Patient is having dialysis this morning during my encounter Continues to have diarrhea associated with abdominal pain No new complaints Review of Systems Review of Systems: All systems reviewed & are unremarkable except as noted in Subjective Physical Exam Physical Exam: Physical Exam: Vitals signs as noted above General Appearance:Moderately built and nourished, no apparent distress Head: normocephalic, Atraumatic Eyes: normal inspection, EOMI Neck: supple, Trachea midline Respiratory/Chest: Decreased breath sounds, CTA, No accessory muscle use Cardiovascular: S1, S2,+ murmur Abdomen/GI:Soft, + tender, Bowel sounds present Extremities/Musculoskeletal:normal inspection, no edema Neurologic/Psych:AAOX3, grossly no focal neurological deficits Skin: normal color, warm Results & Data Results & Data Vital Signs (Past 12 Hours) Vital Signs Temp Pulse Pulse Pulse Resp BP BP 01/28/24 12:30 68 77/41 L 01/28/24 12:00 60 90/42 L 01/28/24 11:30 59 L 88/39 L 01/28/24 11:15 01/28/24 11:00 58 L 85/42 L 01/28/24 10:30 56 L 119/48 L 01/28/24 10:00 56 L 94/39 L 01/28/24 09:50 36.5 C 56 L 01/28/24 08:10 36.7 C 57 L 20 122/63 01/28/24 07:07 58 L 01/28/24 02:00 36.7 C 60 14 116/58 L Pulse Ox O2 Del Method O2 Flow Rate 01/28/24 12:30 01/28/24 12:00 01/28/24 11:30 01/28/24 11:15 Nasal Cannula 3 01/28/24 11:00 01/28/24 10:30 01/28/24 10:00 01/28/24 09:50 01/28/24 08:10 99 Nasal Cannula 4 01/28/24 07:07 01/28/24 02:00 99 Room Air Laboratory Results Short CBC 01/28/24 Range/Units 07:44 WBC 14.49 H (4.8-10.8) K/ul Hgb 12.0 (12.0-16.0) g/dl Hct 35.8 L (37.0-47.0) % Plt Count 172 (130-400) K/uL BMP 01/28/24 07:44 Sodium 139 Potassium 4.7 Chloride 99 Carbon Dioxide 26 BUN 44 H Creatinine 7.38 H* D Glucose 95 Calcium 9.5
[2024-01-28] MEDS ORDERED: MIDODRINE HCL 2.5 MG TAB PO ONE (14:20)
--- NOTE | 2024-01-28 14:44 | Nephrology Progress Note ---
Date of Service January 28, 2024 Assessment & Plan (1) ESRD (end stage renal disease): Plan: ESRD on HD-TTS; had 3L UF on 01/23; got 1.5L UF on 01/25 tolerated HD today but had low BP and stopped few minutes before time. >> needs 2K heparin bolus and 800 units hourly heparin to run well on tx, to keep TMP at goal Continue on outpatient medications. Next HD on 01/30 abd pain issues and N reviewed w/ Dr Reyna as well as dialysis plans via [employer]; we are in agreement (2) Abdominal pain: Plan: w/ unremarkable CT but ongoing and w/ vomiting, diarrhoea >> Empiric tx for C.diff. Concern for ischemic bowel. -Will give 500ml of plasmalyte due to hypotension Admission and Anticipated Discharge Date Admission Date: January 24, 2024 Subjective Seen for ESRD. c/o vomiting and diarrhoea. Patient seen and examined while on dialysis. Review of Systems 2 Review of Systems: All other systems were reviewed and negative except as noted in HPI Physical Exam 2 Physical Exam: General exam: Appears comfortable, no acute distress HEENT: Pupils are equal and reactive to light Neck: No JVD, neck is supple trachea is midline Respiratory system: Clear breath sounds bilaterally. Gastrointestinal: Abdomen is soft, non distended, non tender, bowel sounds are present CVS: Regular rate and rhythm. No murmurs, rubs or gallops Musculoskeletal: No joint or muscle tenderness Extremities: Non tender, no edema, peripheral pulses are present Neuro: Oriented, no tremors, no focal neurological deficits Skin: No rashes Results & Data Vital Signs (Past 12 Hours) Vital Signs Temp Pulse Pulse Pulse Resp BP BP 01/28/24 13:28 36.5 C 54 L 110/58 L 01/28/24 13:00 56 L 78/45 L 01/28/24 12:30 68 77/41 L 01/28/24 12:00 60 90/42 L 01/28/24 11:30 59 L 88/39 L 01/28/24 11:15 01/28/24 11:00 58 L 85/42 L 01/28/24 10:30 56 L 119/48 L 01/28/24 10:00 56 L 94/39 L 01/28/24 09:50 36.5 C 56 L 01/28/24 08:10 36.7 C 57 L 20 122/63 01/28/24 07:07 58 L Pulse Ox O2 Del Method O2 Flow Rate 01/28/24 13:28 01/28/24 13:00 01/28/24 12:30 01/28/24 12:00 01/28/24 11:30 01/28/24 11:15 Nasal Cannula 3 01/28/24 11:00 01/28/24 10:30 01/28/24 10:00 01/28/24 09:50 01/28/24 08:10 99 Nasal Cannula 4 01/28/24 07:07 Laboratory Results 01/28/24 07:44 01/28/24 07:44 WBC 14.49 H RBC 3.03 L MCV 118.2 H MCH 39.6 H MCHC 33.5 RDW Std Deviation 58.7 H RDW Coeff of Fior 13.3 Plt Count 172 MPV 11.6
[2024-01-28] MEDS: MIDODRINE HCL 2.5 MG TAB PO ONE (15:29)
[2024-01-28] MEDS: CHERRY SYRUP 5 ML UDP PO SCH (15:31)
[2024-01-28] MEDS: VANCOMYCIN HCL 125 MG/2.5ML SOLN PO SCH (15:32)
[2024-01-28] MEDS: SODIUM CHLORIDE 0.9% 500 ML IV ONE (15:35)
[2024-01-29] MEDS: ONDANSETRON INJ 2 MG/ML 2 ML VIAL IV STA (00:48)
[2024-01-29 06:52] LABS: Hematocrit (blood only) 33.6 % (37.0-47.0); Hemoglobin 11.1 g/dl (12.0-16.0); Mean Corpuscular Hemoglobin 38.9 pg (25.0-34.0); Mean Corpuscular Volume 117.9 fL (80.0-100.0); Mean Platelet Volume 11.4 fL (9.4-12.4); Platelet Count 153 K/uL (130-400); RDW Coefficient of Variation 13.1 % (11.5-14.5); RDW Standard Deviation 57.3 fL (36.4-46.3); Red Blood Count 2.85 M/uL (4.20-5.40); White Blood Count 14.38 K/ul (4.8-10.8)
[2024-01-29 07:12] LABS: BUN Creatinine Ratio 5.2 (10-20); Potassium 3.6 mmol/L (3.5-5.1)
--- NOTE | 2024-01-29 09:41 | Nephrology Progress Note ---
Date of Service January 29, 2024 Assessment & Plan (1) ESRD (end stage renal disease): Plan: ESRD on HD-TTS; had 3L UF on 01/23; got 1.5L UF on 01/25 tolerated HD yesterday but had low BP and stopped few minutes before time. >> needs 2K heparin bolus and 800 units hourly heparin to run well on tx, to keep TMP at goal Continue on outpatient medications. Next HD on 01/30 (2) Abdominal pain: Plan: w/ unremarkable CT but ongoing and w/ vomiting, diarrhoea >> Empiric tx for C.diff. Concern for ischemic bowel. -Continue supportive management. Will limit UF likely run even on next dialysis Admission and Anticipated Discharge Date Admission Date: January 24, 2024 Subjective Patient seen for ESRD. No shortness of breath. she had dialysis yesterday. No vomiting or diarrhea today. Review of Systems 2 Review of Systems: All other systems were reviewed and negative except as noted in HPI Physical Exam 2 Physical Exam: General exam: Appears comfortable, no acute distress HEENT: Pupils are equal and reactive to light Neck: No JVD, neck is supple trachea is midline Respiratory system: Clear breath sounds bilaterally. Gastrointestinal: Abdomen is soft, non distended, non tender, bowel sounds are present CVS: Regular rate and rhythm. No murmurs, rubs or gallops Musculoskeletal: No joint or muscle tenderness Extremities: Non tender, no edema, peripheral pulses are present Neuro: Oriented, no tremors, no focal neurological deficits Skin: No rashes Results & Data Vital Signs (Past 12 Hours) Vital Signs Temp Pulse Pulse Resp BP Pulse Ox O2 Del Method 01/29/24 07:48 36.4 C L 83 16 147/56 H 93 Nasal Cannula 01/29/24 07:46 58 L 01/29/24 02:20 36.8 C 65 16 150/62 H 100 Nasal Cannula 01/28/24 23:19 36.7 C 65 16 116/56 L 98 Nasal Cannula O2 Flow Rate 01/29/24 07:48 3.5 01/29/24 07:46 01/29/24 02:20 3.5 01/28/24 23:19 3.5 Laboratory Results 01/29/24 06:07 01/29/24 06:07 WBC 14.38 H RBC 2.85 L MCV 117.9 H MCH 38.9 H MCHC 33.0 RDW Std Deviation 57.3 H RDW Coeff of Fior 13.1 Plt Count 153 MPV 11.4
--- NOTE | 2024-01-29 10:45 | Surgery Progress Note ---
Date of Service January 29, 2024 Assessment & Plan (1) Abdominal pain: Plan: vague pain no peritoneal sign clinically decreasing WBC diarrhea improving likely colitis related Admission and Anticipated Discharge Date Admission Date: January 24, 2024 Subjective diarrhea improved pain stable but mild taking po OK Review of Systems Constitutional: no fever and no chills Respiratory: no cough and no dyspnea Cardiovascular: no chest pain Gastrointestinal: + abdominal pain and + diarrhea/loose st ools; no nausea and no vomiting Genitourinary: + dysuria Musculoskeletal: no back pain Neurologic: + generalized weakness; no localized wea kness Psychiatric: no behavioral changes Physical Exam Constitutional: WD/WN, vitals as above Respiratory: normal respiratory effort, lungs clear to auscultation Cardiovascular: RRR, no murmur, no edema Gastrointestinal (Abdomen): Inspection/Auscultation: abdomen normal to inspection and normal bowel sounds; abdomen not distended Percussion/Palpation: + abdomen tender and abdomen soft; no guarding and abdomen not rigid Musculoskeletal: Head/Neck/Chest: normocephalic and head atraumatic Skin: no rashes, warm and dry Results & Data Vital Signs (Past 12 Hours) Vital Signs Temp Pulse Pulse Resp BP Pulse Ox O2 Del Method 01/29/24 07:48 36.4 C L 83 16 147/56 H 93 Nasal Cannula 01/29/24 07:46 58 L 01/29/24 02:20 36.8 C 65 16 150/62 H 100 Nasal Cannula O2 Flow Rate 01/29/24 07:48 3.5 01/29/24 07:46 01/29/24 02:20 3.5
--- NOTE | 2024-01-29 13:37 | Hospitalist Progress Note ---
Date of Service January 29, 2024 Assessment & Plan (1) Pre-syncope: Plan: Presyncope Likely due to labile blood pressure DD: Arrhythmias Normal orthostatics -ECHO: EF 60 to 65%. Left atrium is moderately dilated. Mild focal calcification of the posterior leaflet of mitral valve. Moderate to severe mitral regurgitation. Consider CT head if patient has persistent dizziness Appreciate cardiology input Monitor for any arrhythmias: Sinus bradycardia but no pauses Needs ZIO monitor as outpatient Plan to discharge to rehab facility when stable (2) Generalized weakness: Plan: Continue PT OT Abdominal pain Diarrhea Possible transient ischemic bowel due to hypotension from GI losses/ ? Colitis --CT ABD:No acute findings in the abdomen or pelvis. -Stool PCR, stool for C. difficile negative Hold lisinopril until blood pressure more stable Appreciate surgery input Gentle IV fluids as needed Advance diet as tolerated Given history of C. difficile and ongoing diarrhea with abdominal pain, will empirically start on p.o. vancomycin Clinically improving, no diarrhea today Leukocytosis No obvious sources of infection Monitor (3) ESRD on hemodialysis: Plan: Appreciate nephrology input Continue dialysis per nephrology (4) Chronic respiratory failure with hypoxia, on home O2 therapy: Plan: Has been requiring 3.5 L to maintain saturation Continue dialysis to help with volume management (5) Paroxysmal atrial fibrillation: Plan: Not on anticoagulation due to history of significant GI bleed, chronic anemia, fall risk Continue amiodarone (6) DM type 2 (diabetes mellitus, type 2): Plan: Continue insulin while hospitalized Monitor BGs (7) Anemia of chronic disease: Plan: Hemoglobin at baseline Monitor (8) COPD, moderate: Plan: No signs of acute exacerbation Continue home inhalers (9) Diastolic CHF: Plan: Volume status managed through dialysis Continue home medications (10) HTN (hypertension): Plan: Blood pressure labile Resume lisinopril as able On midodrine on dialysis days Monitor Plan DVT Px: Heparin SQ CODE STATUS Full Disposition Rehab when when stable Admission and Anticipated Discharge Date Admission Date: January 24, 2024 Subjective Patient is seen and examined at bedside Nausea, vomiting, abdominal pain improving No diarrhea today Encouraged to increase oral intake Denies any chest pain, dyspnea No other complaints Review of Systems Review of Systems: All systems reviewed & are unremarkable except as noted in Subjective Physical Exam Physical Exam: Physical Exam: Vitals signs as noted above General Appearance:Moderately built and nourished, no apparent distress Head: normocephalic, Atraumatic Eyes: normal inspection, EOMI Neck: supple, Trachea midline Respiratory/Chest: Decreased breath sounds, CTA, No accessory muscle use Cardiovascular: S1, S2,+ murmur Abdomen/GI:Soft, + mild tender, Bowel sounds present Extremities/Musculoskeletal:normal inspection, no edema Neurologic/Psych:AAOX3, grossly no focal neurological deficits Skin: normal color, warm Results & Data Results & Data Vital Signs (Past 12 Hours) Vital Signs Temp Pulse Pulse Resp BP Pulse Ox O2 Del Method 01/29/24 11:54 36.8 C 61 16 150/55 H 100 Nasal Cannula 01/29/24 07:48 36.4 C L 83 16 147/56 H 93 Nasal Cannula 01/29/24 07:46 58 L 01/29/24 02:20 36.8 C 65 16 150/62 H 100 Nasal Cannula O2 Flow Rate 01/29/24 11:54 3.5 01/29/24 07:48 3.5 01/29/24 07:46 01/29/24 02:20 3.5 Laboratory Results Short CBC 01/29/24 Range/Units 06:07 WBC 14.38 H (4.8-10.8) K/ul Hgb 11.1 L (12.0-16.0) g/dl Hct 33.6 L (37.0-47.0) % Plt Count 153 (130-400) K/uL BMP 01/29/24 06:07 Sodium 142 Potassium 3.6 D Chloride 102 Carbon Dioxide 28 BUN 26 H Creatinine 4.99 H* D Glucose 103 H Calcium 9.0
[2024-01-29 19:30] VITALS: O2SAT 100
[2024-01-30 07:17] LABS: Hematocrit (blood only) 32.9 % (37.0-47.0); Hemoglobin 10.8 g/dl (12.0-16.0); Mean Corpuscular Hgb Conc 32.8 g/dL (32.0-36.0); Mean Corpuscular Volume 118.8 fL (80.0-100.0); Mean Platelet Volume 11.6 fL (9.4-12.4); Platelet Count 138 K/uL (130-400); RDW Coefficient of Variation 13.2 % (11.5-14.5); RDW Standard Deviation 57.9 fL (36.4-46.3); Red Blood Count 2.77 M/uL (4.20-5.40); White Blood Count 15.35 K/ul (4.8-10.8)
[2024-01-30 07:31] LABS: Albumin Level 3.3 gm/dl (3.4-5.0); BUN Creatinine Ratio 5.1 (10-20); Bilirubin Direct 0.1 mg/dl (0-0.2); Bilirubin,Total 0.5 mg/dl (0.2-1.0); Calcium 9.2 mg/dl (8.6-10.3); Creatinine Clr Calc Pharmacy 6.6 ml/min; Potassium 3.8 mmol/L (3.5-5.1); Total Protein 6.2 gm/dl (6.0-8.3)
[2024-01-30 07:46] VITALS: PULSE 61; TEMP 98.8
--- NOTE | 2024-01-30 09:53 | XRay Report ---
XR chest 1V portable HISTORY: 78 years-old Female Leukocytosis COMPARISON: 01/24/2024 TECHNIQUE: AP view of the chest FINDINGS: Cardiac silhouette is mildly enlarged. Atherosclerosis of the aorta. No pneumothorax, pleural effusio n or overt pulmonary edema. Mild linear left basilar atelectasis versus scarring. Bones appear grossl y intact. IMPRESSION: No acute process. ACT 112: Negative or not required by law. The above report was generated using voice recognition software. It may contain grammatical, syntax o r spelling errors. Electronically signed by: Elder Osborn M.D. 01/30/2024 9:52 AM
--- NOTE | 2024-01-30 12:54 | Nephrology Progress Note ---
Date of Service January 30, 2024 Assessment & Plan (1) ESRD (end stage renal disease): Plan: ESRD on HD-TTS; had 3L UF on 01/23; got 1.5L UF on 01/25. tolerated only 0.5L on 01/27 and had N w/ tx hypotension despite midodrine limiting uf >> needs 2K heparin bolus and 800 units hourly heparin to run well on tx, to keep TMP at goal K 3.8 today >> 3 K bath will give low dose ARLETTE for hgb 10.8 Continue on outpatient medications. <<>>she has been accepted at rehab >> will dialyze today to get her on MWF schedule while at IP rehab; up to 1 L UF >midodrine 2.5 mg pre HD Care coordinated w/ Dr Reyna about dialysis timing as well as w/ [facility] staff. At d/c pls continue midodrine but HOLD/stop lisinopril; d/w Dr Medley (2) Abdominal pain: Plan: w/ unremarkable CT but ongoing and w/ vomiting, diarrhoea >> Empiric tx for C.diff. Improving Admission and Anticipated Discharge Date Admission Date: January 24, 2024 Subjective still very tired but transferring chair to bed w/o assist; tired after sitting up in chair for a few hours. still w/ loose BM daily. no sob, no cough. Review of Systems 2 Review of Systems: All systems reviewed & are unremarkable except as noted in Subjective Physical Exam 2 Constitutional: well developed, well nourished, + frail appearing (still looks tired) and cooperative; no acute distress Eyes: EOM intact bilaterally ENMT: Mouth: + dry oral mucous membranes Respiratory: normal respiratory effort; no cough Auscultation: + diminished lung sounds Cardiovascular: RRR, no murmur, no edema Extremities: + AV fistula Musculoskeletal: Extremities: strength 5/5 throughout Skin: no rashes, warm and dry Results & Data Vital Signs (Past 12 Hours) Vital Signs Temp Pulse Resp BP Pulse Ox O2 Del Method O2 Flow Rate 01/30/24 07:44 37.1 C 61 18 132/56 L 100 Room Air 01/30/24 07:16 Nasal Cannula 3 Laboratory Results 01/30/24 06:49 01/30/24 06:49
--- NOTE | 2024-01-30 14:07 | Surgery Progress Note ---
Date of Service January 30, 2024 Assessment & Plan (1) Abdominal pain: Plan: vague pain no peritoneal sign diarrhea improving, no blood likely colitis related No acute surgical intervention continue medical management regular diet as tolerated Admission and Anticipated Discharge Date Admission Date: January 24, 2024 Subjective still feeling very fatigued and tired not having as much abdominal pain today no nausea today is first day of doing solid foods, ate some eggs and half toast this am Still with loose stools, no blood Review of Systems Review of Systems: All systems reviewed & are unremarkable except as noted in HPI & below Physical Exam Constitutional: + frail appearing, cooperative and + let hargic; not in distress and not diaphoretic Respiratory: normal respiratory effort; no respiratory distress Gastrointestinal (Abdomen): Inspection/Auscultation: abdomen normal to inspec tion; abdomen not distended Percussion/Palpation: + abdomen tender (LUQ and LLQ), + guarding (voluntary of LUQ) and abdomen soft; abdomen not rigid and abdomen not firm Skin: no rashes, warm and dry Results & Data Vital Signs (Past 12 Hours) Vital Signs Temp Pulse Resp BP Pulse Ox O2 Del Method O2 Flow Rate 01/30/24 07:44 37.1 C 61 18 132/56 L 100 Room Air 01/30/24 07:16 Nasal Cannula 3 Laboratory Results 01/30/24 Range/Units 06:49 WBC 15.35 H (4.8-10.8) K/ul RBC 2.77 L (4.20-5.40) M/uL Hgb 10.8 L (12.0-16.0) g/dl Hct 32.9 L (37.0-47.0) % MCV 118.8 H (80.0-100.0) fL MCH 39.0 H (25.0-34.0) pg MCHC 32.8 (32.0-36.0) g/dL RDW Std Deviation 57.9 H (36.4-46.3) fL RDW Coeff of Fior 13.2 (11.5-14.5) % Plt Count 138 (130-400) K/uL MPV 11.6 (9.4-12.4) fL Sodium 140 (136-145) mmol/L Potassium 3.8 (3.5-5.1) mmol/L Chloride 101 (98-107) mmol/L Carbon Dioxide 28 (21-32) mmol/L Anion Gap 11 (3-11) BUN 37 H (6-23) mg/dl Creatinine 7.31 H* D (0.6-1.2) mg/dl Est Cr Clr Drug Dosing 6.6 ml/min eGFR 5.37 BUN/Creatinine Ratio 5.1 L (10-20) Glucose 112 H (70-99(Fasting)) mg/dl Calcium 9.2 (8.6-10.3) mg/dl Total Bilirubin 0.5 (0.2-1.0) mg/dl Direct Bilirubin 0.1 (0-0.2) mg/dl AST 15 (13-39) U/L ALT 11 (7-52) U/L Alkaline Phosphatase 76 (34-104) U/L Total Protein 6.2 (6.0-8.3) gm/dl Albumin 3.3 L (3.4-5.0) gm/dl
--- NOTE | 2024-01-30 14:10 | Hospitalist Progress Note ---
Date of Service January 30, 2024 Assessment & Plan (1) Pre-syncope: Plan: Presyncope Likely due to labile blood pressure DD: Arrhythmias Normal orthostatics -ECHO: EF 60 to 65%. Left atrium is moderately dilated. Mild focal calcification of the posterior leaflet of mitral valve. Moderate to severe mitral regurgitation. Consider CT head if patient has persistent dizziness Appreciate cardiology input Monitor for any arrhythmias: Sinus bradycardia but no pauses Needs ZIO monitor as outpatient Plan to discharge to acute rehab after dialysis today (2) Generalized weakness: Plan: Continue PT OT Abdominal pain Diarrhea Possible transient ischemic bowel due to hypotension from GI losses/ ? Colitis --CT ABD:No acute findings in the abdomen or pelvis. -Stool PCR, stool for C. difficile negative Plan to discontinue lisinopril for now Appreciate surgery input Gentle IV fluids as needed Given history of C. difficile and ongoing diarrhea with abdominal pain, will empirically start on p.o. vancomycin No significant diarrhea, tolerating diet Surgery following Leukocytosis No obvious sources of infection Monitor (3) ESRD on hemodialysis: Plan: Appreciate nephrology input Continue dialysis per nephrology (4) Chronic respiratory failure with hypoxia, on home O2 therapy: Plan: Has been requiring 3.5 L to maintain saturation Continue dialysis to help with volume management (5) Paroxysmal atrial fibrillation: Plan: Not on anticoagulation due to history of significant GI bleed, chronic anemia, fall risk Continue amiodarone (6) DM type 2 (diabetes mellitus, type 2): Plan: Continue insulin while hospitalized Monitor BGs (7) Anemia of chronic disease: Plan: Hemoglobin at baseline Monitor (8) COPD, moderate: Plan: No signs of acute exacerbation Continue home inhalers (9) Diastolic CHF: Plan: Volume status managed through dialysis Continue home medications (10) HTN (hypertension): Plan: Plan to discontinue lisinopril for now On midodrine on dialysis days Monitor Plan DVT Px: Heparin SQ CODE STATUS Full Disposition Acute rehab Admission and Anticipated Discharge Date Admission Date: January 24, 2024 Subjective Patient is seen and examined at bedside Still has poor appetite but is able to tolerate solid food today Nausea, abdominal pain continues to improve Plan for hemodialysis today No other complaints Denies any chest pain, dyspnea Plan to discharge to rehab facility after dialysis today Review of Systems Review of Systems: All systems reviewed & are unremarkable except as noted in Subjective Physical Exam Physical Exam: Physical Exam: Vitals signs as noted above General Appearance:Moderately built and nourished, no apparent distress Head: normocephalic, Atraumatic Eyes: normal inspection, EOMI Neck: supple, Trachea midline Respiratory/Chest: Decreased breath sounds, CTA, No accessory muscle use Cardiovascular: S1, S2,+ murmur Abdomen/GI:Soft, + mild tender, Bowel sounds present Extremities/Musculoskeletal:normal inspection, no edema Neurologic/Psych:AAOX3, grossly no focal neurological deficits Skin: normal color, warm Results & Data Results & Data Vital Signs (Past 12 Hours) Vital Signs Temp Pulse Resp BP Pulse Ox O2 Del Method O2 Flow Rate 01/30/24 07:44 37.1 C 61 18 132/56 L 100 Room Air 01/30/24 07:16 Nasal Cannula 3 Laboratory Results Short CBC 01/30/24 Range/Units 06:49 WBC 15.35 H (4.8-10.8) K/ul Hgb 10.8 L (12.0-16.0) g/dl Hct 32.9 L (37.0-47.0) % Plt Count 138 (130-400) K/uL BMP 01/30/24 06:49 Sodium 140 Potassium 3.8 Chloride 101 Carbon Dioxide 28 BUN 37 H Creatinine 7.31 H* D Glucose 112 H Calcium 9.2 Liver Function 01/30/24 Range/Units 06:49 Total Bilirubin 0.5 (0.2-1.0) mg/dl Direct Bilirubin 0.1 (0-0.2) mg/dl AST 15 (13-39) U/L ALT 11 (7-52) U/L Alkaline Phosphatase 76 (34-104) U/L Albumin 3.3 L (3.4-5.0) gm/dl
[2024-01-30] MEDS: EPOETIN ALFA 10,000 UNITS/ML VIAL IV ONE (14:13)
[2024-01-30] MEDS: HEPARIN SOD (PORCINE) 1000 UNIT/ML IV ONE (14:14)
[2024-01-30] MEDS: HEPARIN SOD (PORCINE) 1000 UNIT/ML IV SCH (14:14)
[2024-01-30] MEDS: MIDODRINE HCL 2.5 MG TAB PO STA (14:14)
--- NOTE | 2024-01-30 14:25 | Discharge Summary ---
Date of Service January 30, 2024 Admission HPI Per Admitting Provider She is a 78 years old female with significant past medical history of type 2 diabetes, hyperparathyroidism, COPD, chronic hypoxic respiratory failure on 3 L oxygen at home, paroxysmal atrial fibrillation, mesenteric artery stenosis, nonrheumatic mitral regurgitation andrenal disease on hemodialysis apparently woke up at around 345 this morning and was preparing for going for dialysis. She felt generally very weak, lethargic and felt funny but he still could not manage to do her usual activities including making Tea herself. She did not have any dizziness, blurry of vision, weakness involving any of the side, any numbness or tingling in the extremities, any problem with her speech but overall she was not feeling well and did not have any fall or any loss of consciousness. Her daughter came to take her for dialysis but with the symptoms of presyncope she was brought into the emergency room. She has chronic cough and no recent fever and or chills. She has been treated with C. difficile colitis recently but denies to have any diarrhea or any urinary symptoms. She will be admitted to [facility]/telemetry unit for continued of care. Admission Exam Per Admitting Provider Physical Exam: Lying in bed without any apparent distress but feels lethargic and wanted to have her food Constitutional: + ill appearing and average body habitus Eyes: PERRL, conjunctivae normal, anicteric sclerae ENMT: external ear and nose normal, oropharynx normal Neck: trachea midline, no thyromegaly Respiratory: no respiratory distress Auscultation: + diminished lung sounds and + crackles (Coarse crackles bilaterally especially at the bases) Cardiovascular: Rate/Rhythm: regular rate and regular rhythm; not tachycardic Heart Sounds: normal S1, normal S2 and + murmur Extremities: no edema Gastrointestinal (Abdomen): Inspection/Auscultation: normal bowel sounds; abdomen not distended Percussion/Palpation: abdomen soft; abdomen nontender Musculoskeletal: No acute arthritis involving any of the joint Neurologic: normal touch/pain/proprioception and moves all extremities; no focal motor deficits and not confused Lymphatic: no cervical or axillary lymphadenopathy Principal Diagnosis Presyncope Suspected colitis End-stage renal disease on dialysis Discharge Data Allergies Allergy/AdvReac Type Severity Reaction Status Date / Time chlorhexidine Allergy Intermediate ITCHING Verified 05/24/23 14:59 Consultations 01/24/24 12:26 Consult Nephrology Stat 01/25/24 10:55 Consult Cardiology Routine 01/27/24 11:08 Consult General Surgery Routine Procedures Performed Laboratory Results WBC 15.35 K/ul (4.8-10.8) H 01/30/24 06:49 RBC 2.77 M/uL (4.20-5.40) L 01/30/24 06:49 Hgb 10.8 g/dl (12.0-16.0) L 01/30/24 06:49 POC Hgb 10.5 g/dl (12.0-16.0) L 01/24/24 07:03 Hct 32.9 % (37.0-47.0) L 01/30/24 06:49 POC Hct 31 % (37-47) L 01/24/24 07:03 MCV 118.8 fL (80.0-100.0) H 01/30/24 06:49 MCH 39.0 pg (25.0-34.0) H 01/30/24 06:49 MCHC 32.8 g/dL (32.0-36.0) 01/30/24 06:49 RDW Std Deviation 57.9 fL (36.4-46.3) H 01/30/24 06:49 RDW Coeff of Fior 13.2 % (11.5-14.5) 01/30/24 06:49 Plt Count 138 K/uL (130-400) 01/30/24 06:49 MPV 11.6 fL (9.4-12.4) 01/30/24 06:49 Immature Gran % (Auto) 0.4 % 01/25/24 06:12 Neut % (Auto) 72.9 % 01/25/24 06:12 Lymph % (Auto) 12.3 % 01/25/24 06:12 [place] % (Auto) 12.1 % 01/25/24 06:12 Eos % (Auto) 1.5 % 01/25/24 06:12 Baso % (Auto) 0.8 % 01/25/24 06:12 Neut # (Auto) 3.48 K/uL (1.40-6.50) 01/25/24 06:12 Lymph # (Auto) 0.59 K/uL (1.20-3.40) L 01/25/24 06:12 [place] # (Auto) 0.58 K/uL (0.11-0.59) 01/25/24 06:12 Eos # (Auto) 0.07 K/uL (0.00-0.50) 01/25/24 06:12 Baso # (Auto) 0.04 K/uL (0.00-0.20) 01/25/24 06:12 Immature Gran # (Auto) 0.02 K/uL (0.01-0.20) 01/25/24 06:12 Hypersegmented Neuts 1+ 01/24/24 06:55 Macrocytosis Present 01/25/24 06:12 POC Sodium 139 mmol/L (135-144) 01/24/24 07:03 Sodium 140 mmol/L (136-145) 01/30/24 06:49 POC Potassium 4.9 mmol/L (3.3-5.0) 01/24/24 07:03 Potassium 3.8 mmol/L (3.5-5.1) 01/30/24 06:49 POC Chloride 104 mmol/L (101-112) 01/24/24 07:03 Chloride 101 mmol/L (98-107) 01/30/24 06:49 Carbon Dioxide 28 mmol/L (21-32) 01/30/24 06:49 POC Total CO2 23 mmol/L (24-31) L 01/24/24 07:03 Anion Gap 11 (3-11) 01/30/24 06:49 POC Anion Gap 18.0 mmol/L (16-25) 01/24/24 07:03 POC BUN 57 mg/dl (7-18) H 01/24/24 07:03 BUN 37 mg/dl (6-23) H 01/30/24 06:49 Creatinine 7.31 mg/dl (0.6-1.2) H* D 01/30/24 06:49 POC Creatinine 9.4 mg/dl (0.6-1.3) H* 01/24/24 07:03 Est Cr Clr Drug Dosing 6.6 ml/min 01/30/24 06:49 eGFR 5.37 01/30/24 06:49 BUN/Creatinine Ratio 5.1 (10-20) L 01/30/24 06:49 Glucose 112 mg/dl (70-99(Fasting)) H 01/30/24 06:49 POC Glucose (other) 120 mg/dl (70-99) H 01/24/24 07:03 Calcium 9.2 mg/dl (8.6-10.3) 01/30/24 06:49 POC Ioniz Calcium [place] 1.17 mmol/l (1.12-1.32) 01/24/24 07:03 Phosphorus 5.1 mg/dl (2.5-4.9) H 01/25/24 06:12 Magnesium 2.1 mg/dl (1.7-2.4) 01/27/24 06:25 Total Bilirubin 0.5 mg/dl (0.2-1.0) 01/30/24 06:49 Direct Bilirubin 0.1 mg/dl (0-0.2) 01/30/24 06:49 AST 15 U/L (13-39) 01/30/24 06:49 ALT 11 U/L (7-52) 01/30/24 06:49 Alkaline Phosphatase 76 U/L (34-104) 01/30/24 06:49 Troponin I High Sens 12.6 pg/ml (0-14) 01/24/24 06:55 Total Protein 6.2 gm/dl (6.0-8.3) 01/30/24 06:49 Albumin 3.3 gm/dl (3.4-5.0) L 01/30/24 06:49 Globulin 2.8 gm/dl (2.5-4.0) 01/24/24 06:55 Albumin/Globulin Ratio 1.3 (0.9-2) 01/24/24 06:55 Nasal Screen MRSA (PCR) Negative (Negative) 01/24/24 19:50 Stl C. cayetanensis PCR Not Detected (NotDetected) 01/25/24 Unknown Stool Rotavirus A PCR Not Detected (NotDetected) 01/25/24 Unknown Stl Adenov F 40/41 PCR Not Detected (NotDetected) 01/25/24 Unknown Stool Astrovirus (PCR) Not Detected (NotDetected) 01/25/24 Unknown Stool Campylobacter PCR Not Detected (NotDetected) 01/25/24 Unknown Stl C. diff Tox B Gene Negative Cdiff Gene (Neg) 01/27/24 19:40 Stool Cryptosporidium PCR Not Detected (NotDetected) 01/25/24 Unknown Stl E.coli Shiga Tox PCR Not Detected (NotDetected) 01/25/24 Unknown Stl Enterotoxigenic E PCR Not Detected (NotDetected) 01/25/24 Unknown Stool EPEC (PCR) Not Detected (NotDetected) 01/25/24 Unknown Stool EAEC (PCR) Not Detected (NotDetected) 01/25/24 Unknown Stl E. histolytica PCR Not Detected (NotDetected) 01/25/24 Unknown Stool Giardia Lamblia PCR Not Detected (NotDetected) 01/25/24 Unknown Stool Salmonella PCR Not Detected (NotDetected) 01/25/24 Unknown Stool Sapovirus (PCR) Not Detected (NotDetected) 01/25/24 Unknown Stl P. shigelloides PCR Not Detected (NotDetected) 01/25/24 Unknown Stl Shigella/EIEC PCR Not Detected (NotDetected) 01/25/[address].enterocolitica PCR Not Detected (NotDetected) 01/25/24 Unknown Stool Vibrio (PCR) Not Detected (NotDetected) 01/25/24 Unknown Stl Vibrio cholerae PCR Not Detected (NotDetected) 01/25/24 Unknown Stl Norovirus GI/GII PCR Not Detected (NotDetected) 01/25/24 Unknown Adenovirus (PCR) Not Detected (NotDetected) 01/24/24 07:25 B. pertussis DNA (PCR) Not Detected (NotDetected) 01/24/24 07:25 B.parapertussis DNA PCR Not Detected (NotDetected) 01/24/24 07:25 C. pneumoniae DNA (PCR) Not Detected (NotDetected) 01/24/24 07:25 Coronavirus OC43 (PCR) Not Detected (NotDetected) 01/24/24 07:25 Coronavirus HKU1 (PCR) Not Detected (NotDetected) 01/24/24 07:25 Coronavirus 229E (PCR) Not Detected (NotDetected) 01/24/24 07:25 SARS-CoV-2 (PCR) Not Detected (NotDetected) 01/24/24 07:25 Coronavirus NL63 (PCR) Not Detected (NotDetected) 01/24/24 07:25 Hep Bs Antigen Negative (Negative) 01/27/24 09:45 Hep Bs Antibody Immune 01/27/24 09:45 Hep Bs Antibody, Quant > 500.00 mIU/mL (>or=10mIU/mL Immune) 01/27/24 09:45 Human Metapneumovir PCR Not Detected (NotDetected) 01/24/24 07:25 Influenza Type A (PCR) Not Detected (NotDetected) 01/24/24 07:25 Influenza Type B (PCR) Not Detected (NotDetected) 01/24/24 07:25 M. pneumoniae (PCR) Not Detected (NotDetected) 01/24/24 07:25 Parainfluenza 1 (PCR) Not Detected (NotDetected) 01/24/24 07:25 Parainfluenza 2 (PCR) Not Detected (NotDetected) 01/24/24 07:25 Parainfluenza 3 (PCR) Not Detected (NotDetected) 01/24/24 07:25 Parainfluenza 4 (PCR) Not Detected (NotDetected) 01/24/24 07:25 RSV (PCR) Not Detected (NotDetected) 01/24/24 07:25 Entero/Rhino (PCR) Not Detected (NotDetected) 01/24/24 07:25 Impressions Abdomen/Pelvis CT 01/26/24 20:56 Exam(s): CT ABDOMEN + PELVIS Without Contrast EXAM: CT Abdomen and Pelvis Without Intravenous Contrast CLINICAL HISTORY: Reason for exam: abd pain nv. TECHNIQUE: Axial computed tomography images of the abdomen and pelvis without intravenous contrast. CTDI is 18.95 mGy and DLP is 886.83 mGy-cm. Automated exposure control was utilized for the study. A dose lowering technique was utilized adhering to the principles of ALARA. COMPARISON: FINDINGS: Lung bases: Unremarkable. No mass. No consolidation. ABDOMEN: Liver: Unremarkable. Gallbladder and bile ducts: Postoperative changes prior cholecystectomy. No ductal dilation. Pancreas: Unremarkable. No ductal dilation. Spleen: 3.2 cm splenic cyst. Adrenals: Unremarkable. No mass. Kidneys and ureters: Atrophic kidneys. No obstructing stones. No hydronephrosis. Stomach and bowel: Unremarkable. No obstruction. No mucosal thickening. PELVIS: Appendix: No findings to suggest acute appendicitis. Bladder: Unremarkable. No stones. Reproductive: Uterus is surgically absent. ABDOMEN and PELVIS: Intraperitoneal space: Unremarkable. No free air. No significant fluid collection. Bones/joints: No acute fracture. No dislocation. Soft tissues: Unremarkable. Vasculature: Unremarkable. No abdominal aortic aneurysm. Lymph nodes: Unremarkable. No enlarged lymph nodes. IMPRESSION: No acute findings in the abdomen or pelvis. Electronically signed by: Pilo Otto MD 01/27/24 03:23 AM KUB X-Ray 01/27/24 11:08 KUB HISTORY: Acute generalized abdominal pain abd pain COMPARISON: KUB 12/31/2023, CT 01/26/2024. FINDINGS: Endovascular coils project over the gastroduodenal artery. The bowel gas pattern is normal. There is no radiographic evidence for a bowel obstruction. No evidence for free air on supine exam. Avascular necrosis of the femoral heads. No acute fracture identified. Vascular calcifications. IMPRESSION: 1. Nonobstructive bowel gas pattern. 2. Avascular necrosis of the femoral heads. ACT 112: Negative or not required by law. The above report was generated using voice recognition software. It may contain grammatical, syntax or spelling errors. Electronically signed by: Elder Osborn M.D. 01/27/2024 12:42 PM Chest X-Ray 01/30/24 09:16 XR chest 1V portable HISTORY: 78 years-old Female Leukocytosis COMPARISON: 01/24/2024 TECHNIQUE: AP view of the chest FINDINGS: Cardiac silhouette is mildly enlarged. Atherosclerosis of the aorta. No pneumothorax, pleural effusion or overt pulmonary edema. Mild linear left basilar atelectasis versus scarring. Bones appear grossly intact. IMPRESSION: No acute process. ACT 112: Negative or not required by law. The above report was generated using voice recognition software. It may contain grammatical, syntax or spelling errors. Electronically signed by: Elder Osborn M.D. 01/30/2024 9:52 AM Ordered Studies 01/26/24 20:56 CT Abd and Pelvis [CT abd pelvis wo con] Stat Hospital Course (1) Pre-syncope: Presyncope Likely due to labile blood pressure DD: Arrhythmias Normal orthostatics -ECHO: EF 60 to 65%. Left atrium is moderately dilated. Mild focal calcification of the posterior leaflet of mitral valve. Moderate to severe mitral regurgitation. Consider CT head if patient has persistent dizziness Appreciate cardiology input Monitor for any arrhythmias: Sinus bradycardia but no pauses Needs ZIO monitor as outpatient Plan to discharge to acute rehab after dialysis today (2) Generalized weakness: Continue PT OT Abdominal pain Diarrhea Possible transient ischemic bowel due to hypotension from GI losses/ ? Colitis --CT ABD:No acute findings in the abdomen or pelvis. -Stool PCR, stool for C. difficile negative Plan to discontinue lisinopril for now Appreciate surgery input Gentle IV fluids as needed Given history of C. difficile and ongoing diarrhea with abdominal pain, will empirically start on p.o. vancomycin No significant diarrhea, tolerating diet Surgery following Leukocytosis No obvious sources of infection Monitor (3) ESRD on hemodialysis: Appreciate nephrology input Continue dialysis per nephrology (4) Chronic respiratory failure with hypoxia, on home O2 therapy: Has been requiring 3.5 L to maintain saturation Continue dialysis to help with volume management (5) Paroxysmal atrial fibrillation: Not on anticoagulation due to history of significant GI bleed, chronic anemia, fall risk Continue amiodarone (6) DM type 2 (diabetes mellitus, type 2): Continue insulin while hospitalized Monitor BGs (7) Anemia of chronic disease: Hemoglobin at baseline Monitor (8) COPD, moderate: No signs of acute exacerbation Continue home inhalers (9) Diastolic CHF: Volume status managed through dialysis Continue home medications (10) HTN (hypertension): Plan to discontinue lisinopril for now On midodrine on dialysis days Monitor Plan DVT Px: Heparin SQ CODE STATUS Full Disposition Acute rehab Total Time Total Time Spent Total Time Spent (In Minutes): 52 minutes Discharge Plan Discharge Items Patient Disposition: Transfer Inpatient Rehab Fac Reason For Visit: WEAKNESS, SYNCOPE, ESRD ON HD Discharge Diagnosis: Presyncope Suspected Colitis End-stage renal disease on dialysis Activity: Per Instructions section Exercise/Sports: Gradually increase as tolerated Non-emergency contact: Primary Care Provider, 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 [employer] and 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 Patient may need prolonged course if remains symptomatic. Can resume home oral vancomycin daily after completion of current course. -- You may need EGD/colonoscopy if you continue to have abdominal pain associated with diarrhea. -- Your lisinopril is discontinued as you had low blood pressure during hospitalization. Monitor your blood pressure regularly as advised. Seek immediate medical attention if your symptoms reoccur or worsen Please take all medications as instructed on discharge list below. Please call if you have any questions or problems. You can reach a [facility] hospitalist on duty at [facility] 24 hours a day by calling [phone] Pending Studies at Discharge: No Stand-Alone Forms: My [facility] Skilled Items Patient informed of condition?: Yes DNR: No Discharge Level of Care: Acute rehab Communicable Disease: No Discharge Prognosis: Stable Lines: None Urinary Catheter: No Medications and DC Order Prescriptions: New vancomycin 1,000 mg Recon Soln 125 mg PO Q6 Qty: 0 0RF Continued ipratropium-albuterol 0.5 mg-3 mg(2.5 mg base)/3 mL Solution For Nebulization 3 ml INHALATION QID PRN (Reason: Shortness Of Breath) Arabella-Tika 0.8 mg tablet 1 tab PO QAM fluticasone propionate 50 mcg/actuation [place],Suspension 2 spray INTRANASAL HS albuterol sulfate 90 mcg/actuation Hfa Aerosol Inhaler 2 puff INHALATION Q4H PRN (Reason: Wheezing) acetaminophen [Tylenol] 325 mg Tablet 650 mg PO Q6H PRN (Reason: Pain) loperamide [Imodium A-D] 2 mg Capsule 2 mg PO QID PRN (Reason: Diarrhea) lidocaine-prilocaine 2.5-2.5 % Cream 1 applic topical DIRECTED PRN (Reason: PRIOR TO DIALYSIS) Rx Instructions: APPLY SMALL AMT TO ACCESS SITE 1-2 HOURS PRIOR TO DIALYSIS. cover with occlusive dressing (saran wrap) camphor-menthol 0.5-0.5 % Lotion 1 applic TOPICAL DIRECTED PRN (Reason: Itching) Procrit 10,000 unit/mL Solution 0 unit IV DIRECTED Rx Instructions: PER DIALYSIS valacyclovir 1 gram tablet 1,000 mg PO QAM fluorometholone 0.1 % drops,suspension 1 drp OPL QAM fluticasone furoate-vilanterol [Breo Ellipta] 200-25 mcg/dose Blister With Device 1 inh INHALATION DAILY docusate sodium [Colace] 100 mg capsule 100 mg PO BID PRN (Reason: Constipation) amiodarone 200 mg Tablet 200 mg PO DAILY 30 Days Qty: 60 0RF lanthanum 500 mg tablet,chewable 500 mg PO UD Rx Instructions: 500 mg po daily. filled 01/11 30 day supply sevelamer carbonate [Renvela] 800 mg tablet 1,600 mg PO UD Rx Instructions: 1600mg po tid. filled 01/12 30 day supply midodrine 2.5 mg tablet 2.5 mg PO 3XWK Rx Instructions: Take 2.5mg by mouth 1 hour prior to the end of dialysis Tu/Th/Sat Discontinued lisinopril 40 mg Tablet 40 mg PO 4XWK Rx Instructions: ONLY ON NON-DIALYSIS DAYS, SUN, MON, WED, & FRI. Discharge Orders: Discharge Order (Routine); Ordered 01/30/24 Ordered By: Jono Reyna Admission Data Admit Date/Time: 01/24/24 12:01 Attending Provider: Jono Reyna Admit Provider: Emma Rodriguez Primary Care Provider: Noam Armando Other Providers: Jessica Reed; Charli Rodriguez; Jaja Woodall; Kayleigh Marie; Mague Suarez; [facility]; Vance Mendoza; Stevo Rodriguez; Shilpi Mirza; Huy Yancey; Jose Hart; Jerica Freire; Tracey Stahl; Jose Rafael Hwang Jr; Becki Cano; Rizwan Mckeon; Caro Umana
[2024-01-30 15:29] VITALS: BP 123/62; RESP 17
== END 2024-01-30 17:46 | DRG 312 ==
LOC: ED 06:42 → SUATTDRO 12:01 → EDINP 12:01 → 2N 15:21

== ENCOUNTER 2024-02-07 12:27 | Inpatient (IN) ==
--- NOTE | 2024-02-07 12:47 | Emergency Department Note ---
Impression & Plan Diverticulitis, Abdominal pain, ESRD on dialysis ED Provider Note NAME: VALERIA URIAS AGE: 78 SEX: F : 1945 ARRIVES VIA: Ambulance INFORMANT: Patient, EMS report/nursing report ED PROVIDER(S): Mihai Caldera MD CHIEF COMPLAINT: Abdominal pain, nausea MEDICAL DECISION MAKING: Patient presents due to concern for abdominal pain. IV was established and blood work was obtained. CT abdomen pelvis ordered. Patient's blood work did show a white count of 27.8. Given this acute rise in elevation in white blood cell count procalcitonin lactate blood cultures and empiric Zosyn were ordered. Hemoglobin 11.4 with a normal platelet count. Patient's kidney function more or less at baseline with creatinine 6.6. Pro-Grey 2.5 with a lactate of 1.2. The patient CT abdomen pelvis could not rule out diverticulitis which would explain the patient's symptoms. Also possible enteric colitis but no evidence of bowel obstruction. No evidence of free air or abscess. Given these concerns I did speak with the on-call hospital service for artem Solorio PA-C and the patient was admitted by Dr. Contreras. Discussion w/ other healthcare providers: Bela Solorio PA-C and Dr. Contreras inpatient medicine service Prior /Outside records reviewed: I reviewed part of a discharge summary from January 30, 2024. From Dr. Reyna. 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 Per review of a cardiology progress note from Christin Daigle from January 25 patient history of PAF maintained on Amio but the patient reportedly is not a candidate for anticoagulation due to history of GI bleed chronic anemia and fall risk. Differential diagnosis: Appendicitis, ovarian cyst, ovarian torsion, ectopic , TOA, PID, diverticulitis, UTI, obstruction, inflammatory bowel disease, renal colic, PUD, pancreatitis, biliary pathology, hernia, volvulus, constipation, as well as other pathologies were considered. Diagnostics, as interpreted by me: ECG: None Cardiac monitoring: An order was placed for continuous cardiac monitoring. The monitor shows a rate of 75 with sinus rhythm. Patient was placed on pulse oximetry Medical decision rules: None Imaging studies: I informally interpreted the patient's CT abdomen pelvis does not show evidence of obvious obstruction with formal report to follow. HPI: Patient presents due to concern for abdominal pain. The patient states that her symptoms began several days ago. It is off-and-on and does come and go. The patient is had nausea but no vomiting. Patient states that she presented today as her symptoms seem to worsen. She did receive Zofran and route. Patient reports that she had her dialysis today. She does follow with Dr. Armando his PCP as well as Dr. Bhakta with nephrology. The patient denies any chest pain or shortness of breath she does wear 3 L chronically for COPD. No reported cough or fever. Patient denies any leg swelling. Her appetite has been okay. No falls or trauma to the abdomen. The patient denies any dark stools. PAST MEDICAL HISTORY: See Below PAST SURGICAL HISTORY: See Below SOCIAL HISTORY: See Below HOME MEDICATIONS: See Below ALLERGIES: See Below VITALS: See Below PHYSICAL EXAMINATION: GENERAL: NAD, non-toxic. Resting comfortably, nasal cannula in place. EYE EXAM: Normal conjunctiva. PERRL, no anisocoria and EOM's grossly intact w/o pain. OROPHARYNX: Moist mucus membranes, grossly normal dentition. NECK: Trachea midline, no stridor. Supple, no nuchal rigidity, no adenopathy, non-tender. No signs of meningismus. FROM of the neck with good chin to chest and neck extension. LUNGS: Clear to auscultation. Normal chest wall mechanics. HEART: NSR, no MRG. ABDOMEN: Abdomen soft, diffuse abdominal pain to palpation most prominent in the left abdomen, no masses, no rebound or guarding. BACK: No CVA TTP. SKIN: No rashes and no bruising. UPPER EXTREMITIES: Upper extremities are grossly normal. Left upper extremity AV fistula in place with palpable thrill. LOWER EXTREMITIES: Grossly normal, no edema. NEURO EXAM: A&O x3, cranial nerves II-XII grossly intact, normal speech, moves all 4 extremities. Past Med/Surg History Problem List ESRD on dialysis (Acute) Abdominal pain (Acute) Diverticulitis (Acute) Enterocolitis Diverticulitis of small bowel Diarrhea Abdominal pain Labile hypertension Mitral regurgitation Mitral valve annular calcification Dialysis patient (Acute) Acute dyspnea (Acute) Pleural effusion (Acute) Pulmonary vascular congestion (Acute) Generalized weakness Pre-syncope Pressure injury of coccygeal region, stage 1 COVID-19 (Acute) ESRD (end stage renal disease) (Acute) Non-ST elevation OH (NSTEMI) (Acute) Shortness of breath (Acute) Fall from standing (Acute) Lytic bone lesion of hip (Acute) ESRD on hemodialysis (Acute) Closed sacral fracture (Acute) Glenoid fracture of shoulder (Acute) Lytic bone lesions on xray Acetabular fracture (Acute) Rhabdomyolysis (Acute) Fall Atrial fibrillation with rapid ventricular response (Acute) SOB (shortness of breath) (Acute) Pneumonia (Acute) Weakness (Acute) Hypotension (Acute) Hypokalemia Prolonged QT interval Elevated troponin Chronic respiratory failure with hypoxia, on home O2 therapy (Acute) Paroxysmal atrial fibrillation SOB (shortness of breath) (Acute) Atrial fibrillation with rapid ventricular response (Acute) ESRD (end stage renal disease) on dialysis (Chronic) Chronic respiratory failure with hypoxia (Chronic) Herpes simplex iridocyclitis (Chronic) DM type 2 (diabetes mellitus, type 2) (Chronic) IDDM Osteoarthritis (Chronic) Dyslipidemia (Chronic) Anemia of chronic disease (Chronic) COPD, moderate (Chronic) On 08/19/15 09:47 Mare Whyte wrote "2L O2 at home" AV fistula (Chronic) LUE Moderate mitral regurgitation (Chronic) "moderate to severe on 12/2015 echo" On 01/13/16 15:17 Blanca Chan wrote "echo 06/2015 - calcified mitral valve, moderate MR" Diastolic CHF (Chronic) HTN (hypertension) (Chronic) History of Helicobacter pylori infection (Chronic) S/P ASH (total abdominal hysterectomy) (Chronic) "For Fibroids " S/P left oophorectomy (Chronic) "1981" S/P cholecystectomy (Chronic) "1971" S/P appendectomy (Chronic) "1971" H/O colonoscopy (Chronic) "2005, hyperplastic polyps repeat in 10 years " History of cataract surgery (Chronic) H/O nasal polypectomy (Chronic) Medical History ESRD (end stage renal disease) on dialysis follows with Dr. Reed; Hillary Corley, [facility] - [facility] (since 02/2013) On home oxygen therapy 3 LPM cont History of colon polyps Tobacco use History of GI bleed Renal cyst H/O cardiovascular stress test "05/2013 - negative for ischemia" Pancreatic cyst Obesity Psoriasis Adrenal adenoma Surgical History History of surgery AVF creation History of intestinal surgery Family History Father Myocardial infarction, Onset Age: 64 Diabetes Mother , 87 Alzheimer disease Brother Diabetes Other No family history of adverse response to anesthesia Social History Smoking Status: Current every day smoker Tobacco Type: Cigarettes Cigarettes Per Day: 3; Second Hand Exposure: Yes; Do You Dip or Chew Tobacco: No; Hx Alcohol Use: No Hx Substance Use: No Preferred Language: Montenegrin Communication Ability: Effective Counselor At Law 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 Beliefs That Will Affect Care: None marital status: / Current Living Situation: Alone current occupational status: retired How many Children do You have: 1 Feels Safe at Home: Yes Safety Concerns: Feels Safe At This Time Assistive Devices: Oxygen - Continuous and Walker Allergies Allergies Allergy/AdvReac Type Severity Reaction Status Date / Time chlorhexidine Allergy Intermediate ITCHING Verified 05/24/23 14:59 Home Meds Home Medications Medication Instructions Recorded Confirmed ipratropium 0.5 mg-albuterol 3 mg 3 ml inhalation QID PRN Shortness 09/26/18 02/07/24 (2.5 mg base)/3 mL nebulization Of Breath soln vitamin B complex-vitamin C-folic 1 tab PO QAM 09/26/18 02/07/24 acid 0.8 mg tablet (Arabella-Tika) fluticasone propionate 50 2 spray intranasal HS 01/18/19 02/07/24 mcg/actuation nasal spray,suspension albuterol sulfate 90 mcg/actuation 2 puff inhalation Q4H PRN Wheezing 04/05/19 02/07/24 aerosol inhaler acetaminophen 325 mg tablet 650 mg PO Q6H PRN Pain 04/14/21 02/07/24 (Tylenol) camphor-menthol 0.5 %-0.5 % lotion 1 applic topical DIRECTED PRN 04/14/21 02/07/24 Itching epoetin gabriel 10,000 unit/mL 0 unit IV DIRECTED 04/14/21 02/07/24 injection solution (Procrit) lidocaine-prilocaine 2.5 %-2.5 % 1 applic topical DIRECTED PRN 04/14/21 02/07/24 topical cream PRIOR TO DIALYSIS loperamide 2 mg capsule (Imodium 2 mg PO QID PRN Diarrhea 04/14/21 02/07/24 A-D) valacyclovir 1 gram tablet 1,000 mg PO QAM 04/14/21 02/07/24 fluorometholone 0.1 % eye 1 drp OPL QAM 01/25/22 02/07/24 drops,suspension docusate sodium 100 mg capsule 100 mg PO BID PRN Constipation 04/01/23 02/07/24 (Colace) fluticasone furoate 200 1 inh inhalation DAILY 04/01/23 02/07/24 mcg-vilanterol 25 mcg/dose inhalation powder (Breo Ellipta) midodrine 2.5 mg tablet 2.5 mg PO 3XWK 12/31/23 02/07/24 lanthanum 500 mg chewable tablet 500 mg PO UD 01/24/24 02/07/24 sevelamer carbonate 800 mg tablet 1,600 mg PO UD 01/24/24 02/07/24 (Renvela) vancomycin 1,000 mg intravenous 250 mg PO Q6 02/07/24 02/07/24 injection Previous Rx's Medication Instructions Recorded amiodarone 200 mg tablet 200 mg PO DAILY 30 days #60 tabs 05/12/22 Results & Data (ED) Vital Signs Vital Signs - 24 hr 02/07/24 14:16 02/07/24 14:52 02/07/24 15:03 Pulse Rate 74 Pulse Rate [Apical] 76 75 Pulse Rhythm [Apical] Regular Pulse Strength [Apical] Normal Respiratory Rate 17 18 18 Respiratory Effort / Characteristics Non-Labored Spontaneous Non-Labored Respiratory Depth Normal Normal Respiratory Pattern Regular Blood Pressure [Right Arm] 118/52 L 113/50 L Blood Pressure Mean [Right Arm] 74 71 Blood Pressure Position [Right Arm] Semi-fowlers Lying Pulse Oximetry 100 97 100 Oxygen Delivery Method Nasal Cannula Nasal Cannula Nasal Cannula Oxygen Flow Rate 3 3 3 Home Medications Current Medication List: was personally reviewed by me Laboratory Data Attestation: I reviewed the patient's lab results. 02/08/24 05:48 02/08/24 05:48 Lab Results 02/07/24 02/07/24 02/07/24 Range/Units 14:27 14:28 15:18 WBC 27.89 H (4.8-10.8) K/ul RBC 2.99 L (4.20-5.40) M/uL Hgb 11.4 L (12.0-16.0) g/dl Hct 34.7 L (37.0-47.0) % MCV 116.1 H (80.0-100.0) fL MCH 38.1 H (25.0-34.0) pg MCHC 32.9 (32.0-36.0) g/dL RDW Std Deviation 56.2 H (36.4-46.3) fL RDW Coeff of Fior 13.1 (11.5-14.5) % Plt Count 166 (130-400) K/uL MPV 11.3 (9.4-12.4) fL Immature Gran % (Auto) 2.0 % Neut % (Auto) 90.9 % Lymph % (Auto) 1.5 % Gilchrist % (Auto) 5.2 % Eos % (Auto) 0.0 % Baso % (Auto) 0.4 % Neut # (Auto) 25.36 H (1.40-6.50) K/uL Lymph # (Auto) 0.43 L (1.20-3.40) K/uL Gilchrist # (Auto) 1.45 H (0.11-0.59) K/uL Eos # (Auto) 0.00 (0.00-0.50) K/uL Baso # (Auto) 0.10 (0.00-0.20) K/uL Immature Gran # (Auto) 0.55 H (0.01-0.20) K/uL Macrocytosis Present Sodium 136 (136-145) mmol/L Potassium 4.6 (3.5-5.1) mmol/L Chloride 93 L (98-107) mmol/L Carbon Dioxide 25 (21-32) mmol/L Anion Gap 18 H (3-11) BUN 39 H (6-23) mg/dl Creatinine 6.16 H* (0.6-1.2) mg/dl Est Cr Clr Drug Dosing 8.2 ml/min eGFR 6.59 BUN/Creatinine Ratio 6.3 L (10-20) Glucose 99 (70-99(Fasting)) mg/dl Lactate 1.2 (0.4-2.0) mmol/L Calcium 9.4 (8.6-10.3) mg/dl Total Bilirubin 0.6 (0.2-1.0) mg/dl AST 16 (13-39) U/L ALT 14 (7-52) U/L Alkaline Phosphatase 91 (34-104) U/L Total Protein 6.2 (6.0-8.3) gm/dl Albumin 3.4 (3.4-5.0) gm/dl Globulin 2.8 (2.5-4.0) gm/dl Albumin/Globulin Ratio 1.2 (0.9-2) Lipase 14 (11-82) U/L Procalcitonin 2.54 H (0-0.5) ng/ml Administered Medications Amiodarone HCl (Amiodarone 200 Mg Tab) 200 mg PO DAILY MARY Stop: 03/09/24 08:59 Last Admin: 02/08/24 08:29 Dose: Not Given Documented By: ANDREW Fluticasone Propionate (Fluticasone Propionate Na Spr 16 Gm Btl) 2 sprays NA HS [facility] Stop: 03/08/24 20:59 Last Admin: 02/07/24 22:42 Dose: 2 sprays Documented By: GENO Fluticasone/Vilanterol (Fluticasone/Vilanterol 200/25mcg 14 Puffs/Inhaler) 1 puffs INH DAILY MARY Stop: 03/09/24 08:59 Last Admin: 02/08/24 08:27 Dose: 1 puffs Documented By: ANDREW Heparin Sodium (Porcine) (Heparin Sod 5,000 Unit/0.5 Ml Vial) 5,000 units SQ Q8 MARY Stop: 03/08/24 21:59 Last Admin: 02/08/24 05:55 Dose: 5,000 units Documented By: Admin: 02/07/24 22:42 Dose: 5,000 units Documented By: GENO Lactobacillus Acidophilus (Advanced Probiotic 625 Mg Capsule) 1,250 mg PO DAILY MARY Stop: 03/09/24 08:59 Last Admin: 02/08/24 08:28 Dose: 1,250 mg Documented By: ANDREW Midodrine (Midodrine Hcl 2.5 Mg Tab) 2.5 mg PO [id number] [facility] Stop: 03/09/24 13:59 Last Admin: 02/08/24 11:14 Dose: 2.5 mg Documented By: ANDREW Sevelamer Carbonate (Sevelamer Carbonate 800 Mg Tab) 1,600 mg PO TIDM MARY Stop: 03/08/24 19:59 Last Admin: 02/08/24 08:29 Dose: 1,600 mg Documented By: Admin: 02/07/24 22:43 Dose: 1,600 mg Documented By: GENO Vitamin B Complex/Folic Acid (Nephrocaps) 1 cap PO QAM MARY Stop: 03/09/24 08:59 Last Admin: 02/08/24 08:28 Dose: 1 cap Documented By: ANDREW Discontinued Medications Sodium Chloride (Nss) 250 mls @ 999 mls/hr IV .Q16M ONE Stop: 02/07/24 13:36 Last Infusion: 02/07/24 16:05 Dose: Infused Documented By: Admin: 02/07/24 14:46 Dose: 999 mls/hr Documented By: WINSTON Acetaminophen (Ofirmev) 1,000 mg in 100 mls @ 400 mls/hr IV NOW STA Stop: 02/07/24 13:36 Last Infusion: 02/07/24 15:27 Dose: Infused Documented By: Admin: 02/07/24 14:45 Dose: 400 mls/hr Documented By: WINSTON Piperacillin Sod/Tazobactam Sod (Zosyn) 4.5 gm in 100 mls @ 200 mls/hr IV NOW ONE; Protocol Stop: 02/07/24 15:32 Last Infusion: 02/07/24 16:05 Dose: Infused Documented By: Admin: 02/07/24 15:27 Dose: 200 mls/hr Documented By: BRODY Dextrose/Sodium Chloride (D5w And Nss) 1,000 mls @ 50 mls/hr IV .Q20H [facility] Stop: 02/08/24 13:14 Last Infusion: 02/08/24 13:06 Dose: Infused Documented By: Admin: 02/07/24 17:25 Dose: 50 mls/hr Documented By: BRODY Piperacillin Sod/Tazobactam Sod (Zosyn) 4.5 gm in 100 mls @ 25 mls/hr IV Q12H MARY; Protocol Stop: 02/18/24 02:59 Last Infusion: 02/08/24 06:46 Dose: Infused Documented By: Admin: 02/08/24 02:40 Dose: 25 mls/hr Documented By: GENO Metronidazole (Flagyl) 500 mg in 100 mls @ 100 mls/hr IV NOW STA; Protocol Stop: 02/08/24 07:38 Last Infusion: 02/08/24 11:29 Dose: Infused Documented By: Infusion: 02/08/24 10:20 Dose: 100 mls/hr Documented By: Infusion: 02/08/24 08:57 Dose: 0 mls/hr Documented By: Admin: 02/08/24 08:28 Dose: 100 mls/hr Documented By: ANDREW Albumin Human (Albumin 25%) 12.5 gm in 50 mls @ 50 mls/hr IV ONCE ONE Stop: 02/08/24 10:18 Last Admin: 02/08/24 10:44 Dose: 50 mls/hr Documented By: AUTUMN Imaging Data Radiologist's Impression: Abdomen/Pelvis CT 02/07/24 13:22 CT OF THE ABDOMEN AND PELVIS WITHOUT CONTRAST CLINICAL HISTORY: Diffuse abdominal pain. COMPARISON STUDY: CT of the abdomen and pelvis January 26, 2024. KUB January 27, 2024. TECHNIQUE: Axial images of the abdomen and pelvis were obtained without IV contrast. Images were reviewed in the axial, sagittal, and coronal planes. Automated exposure control was utilized for the study. A dose lowering technique was utilized adhering to the principles of ALARA. FINDINGS: Evaluation of the abdomen and pelvis is suboptimal on this unenhanced exam. No pneumatosis, free air or portal venous gas is present. There is no significant biliary ductal dilatation status post cholecystectomy. Hypodense splenic lesions are unchanged from earlier exams. These are likely benign. Bilateral adrenal nodules are also unchanged and are likely benign. A cystic 2.7 cm lesion within the pancreatic tail is similar to CT of May 12, 2022. There is no peripancreatic infiltration. A partially calcified nodule along the pancreatic head remains unchanged as well. Both kidneys are markedly atrophic. There is no hydronephrosis. There is colonic diverticulosis without evidence for acute colonic diverticulitis. The small and large bowel is fluid-filled. There is no transition point. There is mild wall thickening of the transverse colon. No fluid collections are present. There are clustered small bowel loops within the lower anterior abdomen on image 203 of 377 with wall thickening and mild adjacent inflammation. Associated small bowel diverticula are likely present. There is no extraluminal gas. This finding is new since prior CT. Lytic lesions within the bilateral acetabula are unchanged in appearance since prior exam. No newly lesions are identified. IMPRESSION: 1. Fluid-filled small and large bowel with mild wall thickening of the transverse colon. The findings may reflect a nonspecific enterocolitis. No transition point to suggest a bowel obstruction. 2. Clustered small bowel loops within the lower anterior abdomen with bowel wall thickening, adjacent inflammation and associated diverticula which contain complex contents/stool. The findings raise the possibility of small bowel diverticulitis. No free air or abscess. 3. No change in appearance of multiple lytic bilateral acetabular lesion since earlier CTs dating back to May 12, 2022. These remain indeterminate. ACT 112: Negative or not required by law. Electronically signed by: Vicente Tapia M.D. 02/07/2024 3:19 PM Discharge Plan Visit Data Chief Complaint: Abdominal Pain ED Provider: Mihai Caldera Discharge Problem: Diverticulitis, Abdominal pain, ESRD on dialysis Patient Disposition: Admitted As Inpatient Discharge Instructions Interventions: ED Discharge Assessment Last Done: 02/07/24 19:45 Discharge Problem: Abdominal pain Qualifiers: Abdominal location: generalized Qualified Code(s): R10.84 - Generalized abdominal pain
[2024-02-07 14:45] LABS: Hematocrit (blood only) 34.7 % (37.0-47.0); Hemoglobin 11.4 g/dl (12.0-16.0); Mean Corpuscular Hemoglobin 38.1 pg (25.0-34.0); Mean Corpuscular Hgb Conc 32.9 g/dL (32.0-36.0); Mean Corpuscular Volume 116.1 fL (80.0-100.0); Mean Platelet Volume 11.3 fL (9.4-12.4); Platelet Count 166 K/uL (130-400); RDW Coefficient of Variation 13.1 % (11.5-14.5); RDW Standard Deviation 56.2 fL (36.4-46.3); Red Blood Count 2.99 M/uL (4.20-5.40); White Blood Count 27.89 K/ul (4.8-10.8)
[2024-02-07] MEDS: ACETAMINOPHEN 1,000 MG/100 ML VIAL IV STA (14:45)
[2024-02-07] MEDS: SODIUM CHLORIDE 0.9% 250 ML IV ONE (14:46)
[2024-02-07 15:04] LABS: Albumin Globulin Ratio 1.2 (0.9-2); Albumin Level 3.4 gm/dl (3.4-5.0); BUN Creatinine Ratio 6.3 (10-20); Bilirubin,Total 0.6 mg/dl (0.2-1.0); Calcium 9.4 mg/dl (8.6-10.3); Creatinine Clr Calc Pharmacy 8.2 ml/min; Globulin 2.8 gm/dl (2.5-4.0); Potassium 4.6 mmol/L (3.5-5.1); Total Protein 6.2 gm/dl (6.0-8.3)
[2024-02-07 15:06] LABS: Basophils % (auto) 0.4 %; Immature Granulocytes # (auto) 0.55 K/uL (0.01-0.20); Lymphocytes # (auto) 0.43 K/uL (1.20-3.40); Lymphocytes % (auto) 1.5 %; Macrocytosis Present; Monocytes # (auto) 1.45 K/uL (0.11-0.59); Monocytes % (auto) 5.2 %; Neutrophils # (auto) 25.36 K/uL (1.40-6.50); Neutrophils % (auto) 90.9 %
--- NOTE | 2024-02-07 15:21 | CT Scan Report ---
CT OF THE ABDOMEN AND PELVIS WITHOUT CONTRAST CLINICAL HISTORY: Diffuse abdominal pain. COMPARISON STUDY: CT of the abdomen and pelvis January 26, 2024. KUB January 27, 2024. TECHNIQUE: Axial images of the abdomen and pelvis were obtained without IV contrast. Images were revi ewed in the axial, sagittal, and coronal planes. Automated exposure control was utilized for the laura dy. A dose lowering technique was utilized adhering to the principles of ALARA. FINDINGS: Evaluation of the abdomen and pelvis is suboptimal on this unenhanced exam. No pneumatosis, free air or portal venous gas is present. There is no significant biliary ductal dilatation status p ost cholecystectomy. Hypodense splenic lesions are unchanged from earlier exams. These are likely marina ign. Bilateral adrenal nodules are also unchanged and are likely benign. A cystic 2.7 cm lesion withi n the pancreatic tail is similar to CT of May 12, 2022. There is no peripancreatic infiltration. A partially calcified nodule along the pancreatic head remains unchanged as well. Both kidneys are m arkedly atrophic. There is no hydronephrosis. There is colonic diverticulosis without evidence for ac bo colonic diverticulitis. The small and large bowel is fluid-filled. There is no transition point. There is mild wall thickening of the transverse colon. No fluid collections are present. There are cl ustered small bowel loops within the lower anterior abdomen on image 203 of 377 with wall thickening and mild adjacent inflammation. Associated small bowel diverticula are likely present. There is no ex traluminal gas. This finding is new since prior CT. Lytic lesions within the bilateral acetabula are unchanged in appearance since prior exam. No newly lesions are identified. IMPRESSION: 1. Fluid-filled small and large bowel with mild wall thickening of the transverse colon. The findings may reflect a nonspecific enterocolitis. No transition point to suggest a bowel obstruction. 2. Clustered small bowel loops within the lower anterior abdomen with bowel wall thickening, adjacent inflammation and associated diverticula which contain complex contents/stool. The findings raise the possibility of small bowel diverticulitis. No free air or abscess. 3. No change in appearance of multiple lytic bilateral acetabular lesion since earlier CTs dating kim k to May 12, 2022. These remain indeterminate. ACT 112: Negative or not required by law. Electronically signed by: Vicente Tapia M.D. 02/07/2024 3:19 PM
[2024-02-07] MEDS: PIPERACILLIN/TAZOBACTAM 4.5 GM/100 ML BAG IV ONE (15:27)
[2024-02-07] MEDS ORDERED: ONDANSETRON INJ 2 MG/ML 2 ML VIAL IV PRN (16:12)
[2024-02-07] MEDS ORDERED: ACETAMINOPHEN 325 MG TAB PO PRN (16:12)
--- NOTE | 2024-02-07 16:28 | History & Physical Report ---
Date of Service February 07, 2024 Assessment & Plan (1) Abdominal pain: (2) Diverticulitis of small bowel: (3) Enterocolitis: (4) ESRD (end stage renal disease) on dialysis: Plan This is a 78-year-old female who has a significant past medical history of chronic hypoxic respiratory failure on 3 L of O2, COPD, PAF off anticoagulation secondary to bleeding, mesenteric artery stenosis, HTN, mitral regurgitation, ESRD on HD, HLD, T2DM, secondary hyperparathyroidism, anemia and ESRD, hypogammaglobinemia and history of tobacco abuse who presents to ED secondary to abdominal pain. Recent admission 01/23 - 01/29 for near syncope. Seen and evaluated by cards. [place] possibly 2/2 labile HTN with HD, Lisinopril stopped and midodrine 3x weekly continued. She developed abd pain throughout stay and diarrhea. Stool biofire and for cdiff negative. Empirically started on oral vanco and discharged to [facility]. While at [facility] pt has been having worsening abd pain, n/v/d. Vanco increased to 250mg QID. She was borderline hypotensive and wbc climbing so sent to ED for eval. CT a/p: Fluid-filled small and large bowel with mild wall thickening of the transverse colon. The findings may reflect a nonspecific enterocolitis. No transition point to suggest a bowel obstruction. 2. Clustered small bowel loops within the lower anterior abdomen with bowel wall thickening, adjacent inflammation and associated diverticula which contain complex contents/stool. The findings raise the possibility of small bowel diverticulitis. No free air or abscess. Abdominal Pain Diverticulitis of the small bowel enterocolitis admit to med tele NPO, IV zosyn renally dose, probiotic, stool culture and stool for cdiff, pt does not meet Sepsis criteria hold on oral vanco for now given negative result last admission and imaging suggestive of diverticulitis consult general surg pt appears very dry, given npo status will give very cautious IVF D5NSS at 50cc/hr x 24hr ESRD on HD: typically T//Tue; however while at [facility] is on MWF, next HD due tomorrow, consult nephro Chronic hypoxic resp failure on 3.5L/COPD: continue home inhalers PAF: continue amiodarone, lfts ok, off OAC due to bleeding Anemia of CD: hgb stable 11.4, monitor, no s/sx of bleeding Chronic HFpEF, mod to severe MR : volume status via HD Hx of T2DM: last a1c in Mar was 5.9, repeat in a.m. DVT ppx: SQ Heparin FULL CODE PCP: Prabha Dispo: admit to med [facility], pt admitted from [facility] rehab, will need PT/OT as sessments when medically able Pt was seen and examined in collaboration with Dr. Contreras, please see addendum I spent a total of 76 minutes reviewing notes, outpatient records, labs, medication, coordinating, documenting and providing care for this patient excluding time spent in the performance of separately billed services. Attempted to call Delphine Rod - pt primary contact x 2 but was unable to reach her to provider her an update per pt request. History of Present Illness Chief Complaint: Abdominal pain Primary Care Provider: Noam Armando MD This is a 78-year-old female who has a significant past medical history of chronic hypoxic respiratory failure on 3 L of O2, COPD, PAF off anticoagulation secondary to bleeding, mesenteric artery stenosis, HTN, mitral regurgitation, ESRD on HD, HLD, T2DM, secondary hyperparathyroidism, anemia and ESRD, hypogammaglobinemia and history of tobacco abuse who presents to ED secondary to abdominal pain. of significance patient was recently hospitalized 01/23 to 01/29 secondary to generalized weakness, presyncope and abdominal pain. She underwent echocardiogram which revealed a preserved EF at 60 to 65%, left atrium moderately dilated, moderate to severe mitral regurg. Telemetry revealed sinus bradycardia but no overt arrhythmias. Cardiology saw the patient and it was noted she has had a long standing history of labile HTN with HD. Her lisinopril was then stopped and she continued her 3xwk midodrine. She received hemodialysis throughout hospital stay. She also had abdominal pain and diarrhea throughout her hospitalization. Her stool PCR was negative for infection and C. difficile was negative as well. She was seen and evaluated by general surgery. There was concern about possible transient ischemic bowel due to hypotension versus colitis. She was started on empiric vancomycin despite negative cdiff. Her lisinopril was Discontinue due to lower blood pressure. She was discharged to [facility] rehab. Since being at rehab she feels as if she was getting stronger until today. She states over the last few days her abd pain as become constant and is diffuse. Nothing makes it better and is made worse with eating. She has been having n/v and diarrhea. She denies melena or hematochezia. She does not make any urine. She denies f/c/s, chest pain. She is chronically SOB. She continues to feel as if she could pass out at times, but denies true syncope. In ED pt was found to have leukocytosis with wbc 27k, h/h 11.4 and 34.7, bun 39, cr 6.16 and procal of 2.54. CT a/p concerning for SB diverticulitis. At rehab they recently increased her vancomycin to 250mg QID. Allergies Allergy/AdvReac Type Severity Reaction Status Date / Time chlorhexidine Allergy Intermediate ITCHING Verified 05/24/23 14:59 Home Medications Medication Instructions Recorded Confirmed Type ipratropium 0.5 mg-albuterol 3 mg 3 ml inhalation QID PRN Shortness 09/26/18 02/07/24 History (2.5 mg base)/3 mL nebulization Of Breath soln vitamin B complex-vitamin C-folic 1 tab PO QAM 09/26/18 02/07/24 History acid 0.8 mg tablet (Arabella-Tika) fluticasone propionate 50 2 spray intranasal HS 01/18/19 02/07/24 History mcg/actuation nasal spray,suspension albuterol sulfate 90 mcg/actuation 2 puff inhalation Q4H PRN Wheezing 04/05/19 02/07/24 History aerosol inhaler acetaminophen 325 mg tablet 650 mg PO Q6H PRN Pain 04/14/21 02/07/24 History (Tylenol) camphor-menthol 0.5 %-0.5 % lotion 1 applic topical DIRECTED PRN 04/14/21 02/07/24 History Itching epoetin gabriel 10,000 unit/mL 0 unit IV DIRECTED 04/14/21 02/07/24 History injection solution (Procrit) lidocaine-prilocaine 2.5 %-2.5 % 1 applic topical DIRECTED PRN 04/14/21 02/07/24 History topical cream PRIOR TO DIALYSIS loperamide 2 mg capsule (Imodium 2 mg PO QID PRN Diarrhea 04/14/21 02/07/24 History A-D) valacyclovir 1 gram tablet 1,000 mg PO QAM 04/14/21 02/07/24 History fluorometholone 0.1 % eye 1 drp OPL QAM 01/25/22 02/07/24 History drops,suspension amiodarone 200 mg tablet 200 mg PO DAILY 30 days #60 tabs 05/12/22 02/07/24 Rx docusate sodium 100 mg capsule 100 mg PO BID PRN Constipation 04/01/23 02/07/24 History (Colace) fluticasone furoate 200 1 inh inhalation DAILY 04/01/23 02/07/24 History mcg-vilanterol 25 mcg/dose inhalation powder (Breo Ellipta) midodrine 2.5 mg tablet 2.5 mg PO 3XWK 12/31/23 02/07/24 History lanthanum 500 mg chewable tablet 500 mg PO UD 01/24/24 02/07/24 History sevelamer carbonate 800 mg tablet 1,600 mg PO UD 01/24/24 02/07/24 History (Renvela) vancomycin 1,000 mg intravenous 250 mg PO Q6 02/07/24 02/07/24 History injection Past Med/Surg History Problem List Enterocolitis Diverticulitis of small bowel Diarrhea Abdominal pain Labile hypertension Mitral regurgitation Mitral valve annular calcification Dialysis patient (Acute) Acute dyspnea (Acute) Pleural effusion (Acute) Pulmonary vascular congestion (Acute) Generalized weakness Pre-syncope Pressure injury of coccygeal region, stage 1 COVID-19 (Acute) ESRD (end stage renal disease) (Acute) Non-ST elevation IN (NSTEMI) (Acute) Shortness of breath (Acute) Fall from standing (Acute) Lytic bone lesion of hip (Acute) ESRD on hemodialysis (Acute) Closed sacral fracture (Acute) Glenoid fracture of shoulder (Acute) Lytic bone lesions on xray Acetabular fracture (Acute) Rhabdomyolysis (Acute) Fall Atrial fibrillation with rapid ventricular response (Acute) SOB (shortness of breath) (Acute) Pneumonia (Acute) Weakness (Acute) Hypotension (Acute) Hypokalemia Prolonged QT interval Elevated troponin Chronic respiratory failure with hypoxia, on home O2 therapy (Acute) Paroxysmal atrial fibrillation SOB (shortness of breath) (Acute) Atrial fibrillation with rapid ventricular response (Acute) ESRD (end stage renal disease) on dialysis (Chronic) Chronic respiratory failure with hypoxia (Chronic) Herpes simplex iridocyclitis (Chronic) DM type 2 (diabetes mellitus, type 2) (Chronic) IDDM Osteoarthritis (Chronic) Dyslipidemia (Chronic) Anemia of chronic disease (Chronic) COPD, moderate (Chronic) On 08/19/15 09:47 Mare Pato wrote "2L O2 at home" AV fistula (Chronic) LUE Moderate mitral regurgitation (Chronic) "moderate to severe on 12/2015 echo" On 01/13/16 15:17 Blanca Chan wrote "echo 06/2015 - calcified mitral valve, moderate MR" Diastolic CHF (Chronic) HTN (hypertension) (Chronic) History of Helicobacter pylori infection (Chronic) S/P ASH (total abdominal hysterectomy) (Chronic) "For Fibroids " S/P left oophorectomy (Chronic) "1981" S/P cholecystectomy (Chronic) "1971" S/P appendectomy (Chronic) "1971" H/O colonoscopy (Chronic) "2005, hyperplastic polyps repeat in 10 years " History of cataract surgery (Chronic) H/O nasal polypectomy (Chronic) Medical History ESRD (end stage renal disease) on dialysis follows with Dr. Reed; Hillary Corley, [facility] - [facility] (since 02/2013) On home oxygen therapy 3 LPM cont History of colon polyps Tobacco use History of GI bleed Renal cyst H/O cardiovascular stress test "05/2013 - negative for ischemia" Pancreatic cyst Obesity Psoriasis Adrenal adenoma Surgical History History of surgery AVF creation History of intestinal surgery Family History Father Myocardial infarction, Onset Age: 64 Diabetes Mother , 87 Alzheimer disease Brother Diabetes Other No family history of adverse response to anesthesia Social History Smoking Status: Former smoker Tobacco Type: Cigarettes Cigarettes Per Day: 3; Second Hand Exposure: Yes; Do You Dip or Chew Tobacco: No; Hx Alcohol Use: No Hx Substance Use: No Preferred Language: Mauritanian Communication Ability: Effective 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 Beliefs That Will Affect Care: None marital status: / Current Living Situation: Alone current occupational status: retired How many Children do You have: 1 Feels Safe at Home: Yes Assistive Devices: Oxygen - Continuous and Walker Review of Systems Review of Systems: All systems reviewed & are unremarkable except as noted in HPI & below Physical Exam Physical Exam: Gen: Elderly, F, chronically ill appear, A and O x 3 Lung: CTAB no w/r/r on 3.5L of O2 via NC Heart: RRR nml s1/s2, LUE AV Fistula +thrill noted Abd: soft, significantly tender to minimal palpation, + BS hypoactive x 4 Ext: no edema, arom x 4 Skin: no rash, warm, dry, b/l temporal wasting Results & Data Results & Data Vital Signs (Past 12 Hours) Vital Signs Temp Pulse Pulse Resp BP BP Pulse Ox 02/07/24 15:03 75 18 113/50 L 100 02/07/24 14:52 74 18 97 02/07/24 14:16 76 17 118/52 L 100 02/07/24 12:46 36.9 C 81 18 103/42 L 100 02/07/24 12:46 36.9 C 81 17 103/42 L 100 02/07/24 12:43 79 O2 Del Method O2 Flow Rate 02/07/24 15:03 Nasal Cannula 3 02/07/24 14:52 Nasal Cannula 3 02/07/24 14:16 Nasal Cannula 3 02/07/24 12:46 Nasal Cannula 4 02/07/24 12:46 Nasal Cannula 4 02/07/24 12:43 Laboratory Results I have independently reviewed and interpreted patient's admitting labs including CBC, CMP, lipase, procal. Diagnostic Findings Abdomen/Pelvis CT 02/07/24 13:22 CT OF THE ABDOMEN AND PELVIS WITHOUT CONTRAST CLINICAL HISTORY: Diffuse abdominal pain. COMPARISON STUDY: CT of the abdomen and pelvis January 26, 2024. KUB January 27, 2024. TECHNIQUE: Axial images of the abdomen and pelvis were obtained without IV contrast. Images were reviewed in the axial, sagittal, and coronal planes. Automated exposure control was utilized for the study. A dose lowering technique was utilized adhering to the principles of ALARA. FINDINGS: Evaluation of the abdomen and pelvis is suboptimal on this unenhanced exam. No pneumatosis, free air or portal venous gas is present. There is no significant biliary ductal dilatation status post cholecystectomy. Hypodense splenic lesions are unchanged from earlier exams. These are likely benign. Bilateral adrenal nodules are also unchanged and are likely benign. A cystic 2.7 cm lesion within the pancreatic tail is similar to CT of May 12, 2022. There is no peripancreatic infiltration. A partially calcified nodule along the pancreatic head remains unchanged as well. Both kidneys are markedly atrophic. There is no hydronephrosis. There is colonic diverticulosis without evidence for acute colonic diverticulitis. The small and large bowel is fluid-filled. There is no transition point. There is mild wall thickening of the transverse colon. No fluid collections are present. There are clustered small bowel loops within the lower anterior abdomen on image 203 of [phone] with wall thickening and mild adjacent inflammation. Associated small bowel diverticula are likely present. There is no extraluminal gas. This finding is new since prior CT. Lytic lesions within the bilateral acetabula are unchanged in appearance since prior exam. No newly lesions are identified. IMPRESSION: 1. Fluid-filled small and large bowel with mild wall thickening of the transverse colon. The findings may reflect a nonspecific enterocolitis. No transition point to suggest a bowel obstruction. 2. Clustered small bowel loops within the lower anterior abdomen with bowel wall thickening, adjacent inflammation and associated diverticula which contain complex contents/stool. The findings raise the possibility of small bowel diverticulitis. No free air or abscess. 3. No change in appearance of multiple lytic bilateral acetabular lesion since earlier CTs dating back to May 12, 2022. These remain indeterminate. ACT 112: Negative or not required by law. Electronically signed by: Vicente Tapia M.D. 02/07/2024 3:19 PM Medications Administered Medication List Discontinued Medications Sodium Chloride (Nss) 250 mls @ 999 mls/hr IV .Q16M ONE Stop: 02/07/24 13:36 Last Infusion: 02/07/24 16:05 Dose: Infused Documented By: Admin: 02/07/24 14:46 Dose: 999 mls/hr Documented By: WINSTON Acetaminophen (Ofirmev) 1,000 mg in 100 mls @ 400 mls/hr IV NOW STA Stop: 02/07/24 13:36 Last Infusion: 02/07/24 15:27 Dose: Infused Documented By: Admin: 02/07/24 14:45 Dose: 400 mls/hr Documented By: WINSTON Piperacillin Sod/Tazobactam Sod (Zosyn) 4.5 gm in 100 mls @ 200 mls/hr IV NOW ONE; Protocol Stop: 02/07/24 15:32 Last Infusion: 02/07/24 16:05 Dose: Infused Documented By: Admin: 02/07/24 15:27 Dose: 200 mls/hr Documented By: BRODY ECG Additional Comments: I have independently reviewed and interpreted patient's admitting EKG which revealed: NSR, 1st degree avb, qtc 519ms, COVID-19 Results Results COVID-19 Adm Lab Results: RBC 2.99 M/uL (4.20-5.40) L 02/07/24 WBC 27.89 K/ul (4.8-10.8) H 02/07/24 Hgb 11.4 g/dl (12.0-16.0) L 02/07/24 Hct 34.7 % (37.0-47.0) L 02/07/24 Plt Count 166 K/uL (130-400) 02/07/24 Neutrophils (%) (Auto) 90.9 % 02/07/24 Lymphocytes (%) (Auto) 1.5 % 02/07/24 Monocytes # (Auto) 1.45 K/uL (0.11-0.59) H 02/07/24 Eosinophils # (Auto) 0.00 K/uL (0.00-0.50) 02/07/24 Immature Granulocyte % (Auto) 2.0 % 02/07/24 Neutrophils # (Auto) 25.36 K/uL (1.40-6.50) H 02/07/24 Monocytes # (Auto) 1.45 K/uL (0.11-0.59) H 02/07/24 Eosinophils # (Auto) 0.00 K/uL (0.00-0.50) 02/07/24 Basophils # (Auto) 0.10 K/uL (0.00-0.20) 02/07/24 Immature Granulocyte # (Auto) 0.55 K/uL (0.01-0.20) H 02/06 Macrocytosis Present 02/07/24 Na 136 mmol/L (136-145) 02/07/24 K 4.6 mmol/L (3.5-5.1) 02/07/24 Cl 93 mmol/L (98-107) L 02/07/24 CO2 25 mmol/L (21-32) 02/07/24 Anion Gap 18 (3-11) H 02/07/24 BUN 39 mg/dl (6-23) H 02/07/24 Creatinine 6.16 mg/dl (0.6-1.2) H* 02/07/24 BUN/Creatinine Ratio 6.3 (10-20) L 02/07/24 Glucose Level 99 mg/dl (70-99(Fasting)) 02/07/24 Ca 9.4 mg/dl (8.6-10.3) 02/07/24 Total Bilirubin 0.6 mg/dl (0.2-1.0) 02/07/24 AST/SGOT 16 U/L (13-39) 02/07/24 ALT/SGPT 14 U/L (7-52) 02/07/24 Alkaline Phosphatase 91 U/L (34-104) 02/07/24 Total Protein 6.2 gm/dl (6.0-8.3) 02/07/24 Albumin 3.4 gm/dl (3.4-5.0) 02/07/24 Globulin 2.8 gm/dl (2.5-4.0) 02/07/24 Albumin/Globulin Ratio 1.2 (0.9-2) 02/07/24 Procalcitonin 2.54 ng/ml (0-0.5) H 02/07/24 Code Status & VTE Plan Code Status FULL CODE Supervising Physician Co-Signing Physician Notes 78-year-old lady with PMH of chronic hypoxic respiratory failure on 3 L of oxygen, COPD, PAF off of anticoagulation secondary to bleeding, mesenteric artery stenosis, HTN, mitral regurgitation, ESRD on HD, HLD, T2DM, secondary hyperparathyroidism, anemia, hypogammaglobulinemia and past tobacco abuse presented to the ED secondary to worsening lower abdominal pain for " a while" associated with nausea, vomiting, loose stools and poor appetite. Patient does not make urine, patient is ESRD on HD. Patient denied any fever. Admitting labs and imaging reviewed. WBC elevated at 27.8 9K, BUN and creatinine elevated/ESRD patient, lactate WNL, procalcitonin elevated at 2.54. CT abdomen pelvis suggestive of nonspecific enterocolitis and small bowel diverticulitis. For diverticulitis, n.p.o., general surgery consult, D5W NSS at 50 mL an hour [patient is ESRD on hemodialysis patient, dry on exam], Zosyn, probiotic. Send stool studies including C. difficile. On exam: GENERAL: Alert and oriented x3. NAD, on 3L NC O2. Appears ill/frail/weak. HEENT: No pallor, no icterus. Pupils equal, round and reactive to light. Oral mucosa moist. NECK: No JVD, no neck masses. HEART: S1 and S2 heard. Regular rate and rhythm. No murmur, no gallop. RESPIRATORY SYSTEM: Normal AP diameter. No accessory muscle use. No wheezing, no crackles. ABDOMEN: Soft, bowel sounds present, +tender lower abd, no distention. CENTRAL NERVOUS SYSTEM: No facial droop. Speech is clear. Obeys simple commands. Moves extremities. EXTREMITIES: No edema, no erythema seen. I have seen and examined the patient and have discussed the case with the provider above. I agree with the assessment and plan as stated. Time spent: 30 min
[2024-02-07] MEDS: D5W AND NSS 1,000 ML IV SCH (17:25)
--- NOTE | 2024-02-07 19:39 | Surgery Consultation ---
Date of Consultation February 07, 2024 Assessment & Plan (1) Diverticulitis of small bowel: Patient has been admitted on the hospitalist service. From a surgery perspective we recommend the following: On CT scan appears as though the patient has small bowel diverticulitis Would recommend treating with intravenous fluids for hydration, bowel rest, and antibiotics which is already being donethe patient is receiving Zosyn As the patient has had a recent C. difficile infection stool studies. C. difficile have been sent and are pending The patient also has stool cultures sent which are pending The patient should continue to undergo hemodialysis as directed by her nephrology team Will continue to follow along with additional recommendations based on her clinical course as unfolds History of Present Illness Reason for Consultation: Small bowel diverticulitis History of Present Illness This is a 78-year-old female who is recently admitted to the hospital from 01/23 through 01/30/2024. Patient was admitted secondary to a near syncopal episode. During this admission the patient complained of abdominal pain and general surgery was consulted. As there are no surgical findings on the CT scan (this will be described below) no surgical intervention was employed. It was felt the patient's abdominal pain was potentially related to colitis or transient ischemic bowel due to hypotension from GI losses. It is noted to mention the patient did have a recent C. difficile infection and had continued diarrhea was empirically treated with oral vancomycin. As the patient lives alone in [place], [place] she was discharged [facility]. During the patient's recent admission to the hospital noted above she did have a CT scan of the abdomen pelvis on 01/26/2024. This study did not show any acute findings in the abdomen or pelvisspecifically there is no free air or intra- abdominal fluid collections. There was no evidence of small bowel obstruction or any mucosal thickening of the patient's bowel. There is no comment on any evidence of diverticulitis on this study. As noted the patient was discharged from the hospital on 01/30/2024. At that time labs included CBC with a white blood cell count was elevated 15.3. Her hemoglobin and hematocrit were 10.8 and 32.9. Platelet count was within normal range. Chemistry profile on that day showed sodium and potassium were normal. The patient's BUN and creatinine were 37 and 7.3 As noted above the patient was discharged to [facility] for rehab and was doing reasonly well initially upon discharge however she was transferred back to [facility] emergency department today as she noted abdominal pain that has now become constant and diffuse. She does note that the pain is worse with eating but she does not report any other modifying factors. She notes that the pain is in a generalized fashion throughout her abdomen without any radiation. She does have nausea without vomiting. She denies any fevers, shakes, or chills. Patient notes that she has ongoing diarrhea and any she eats seems to precipitate her diarrhea. Since arrival to the hospital today the patient has had labs and imaging which I independent reviewed. CBC revealed white blood cell count was elevated 27.8. Hemoglobin and hematocrit were 11.4 and 34.7. Platelet count was 166,000. Chemistry profile showed sodium and potassium are normal. Her BUN and creatinine were 39 and 6.1. Lactic acid was not elevated at 1.5. There is no elevation of LFTs or lipase. She also had a CT scan of her abdomen pelvis. This showed the patient had fluid-filled small and large bowel with mild wall thickening of the transverse colon which was felt to represent a nonspecific enterocolitis. There is no evidence of bowel obstruction. Patient did have clustered small bowel loops in the lower anterior abdomen and bowel wall thickening with associated inflammation and diverticula which raise a concern of possible small bowel diverticulitis. There is no free air or abscess. At the time of my interview with the patient she was resting in bed and did not appear to be in any distress.. Allergies Allergy/AdvReac Type Severity Reaction Status Date / Time chlorhexidine Allergy Intermediate ITCHING Verified 05/24/23 14:59 Home Medications Medication Instructions Recorded Confirmed Type ipratropium 0.5 mg-albuterol 3 mg 3 ml inhalation QID PRN Shortness 09/26/18 02/07/24 History (2.5 mg base)/3 mL nebulization Of Breath soln vitamin B complex-vitamin C-folic 1 tab PO QAM 09/26/18 02/07/24 History acid 0.8 mg tablet (Arabella-Tika) fluticasone propionate 50 2 spray intranasal HS 01/18/19 02/07/24 History mcg/actuation nasal spray,suspension albuterol sulfate 90 mcg/actuation 2 puff inhalation Q4H PRN Wheezing 04/05/19 02/07/24 History aerosol inhaler acetaminophen 325 mg tablet 650 mg PO Q6H PRN Pain 04/14/21 02/07/24 History (Tylenol) camphor-menthol 0.5 %-0.5 % lotion 1 applic topical DIRECTED PRN 04/14/21 02/07/24 History Itching epoetin gabriel 10,000 unit/mL 0 unit IV DIRECTED 04/14/21 02/07/24 History injection solution (Procrit) lidocaine-prilocaine 2.5 %-2.5 % 1 applic topical DIRECTED PRN 04/14/21 02/07/24 History topical cream PRIOR TO DIALYSIS loperamide 2 mg capsule (Imodium 2 mg PO QID PRN Diarrhea 04/14/21 02/07/24 History A-D) valacyclovir 1 gram tablet 1,000 mg PO QAM 04/14/21 02/07/24 History fluorometholone 0.1 % eye 1 drp OPL QAM 01/25/22 02/07/24 History drops,suspension amiodarone 200 mg tablet 200 mg PO DAILY 30 days #60 tabs 05/12/22 02/07/24 Rx docusate sodium 100 mg capsule 100 mg PO BID PRN Constipation 04/01/23 02/07/24 History (Colace) fluticasone furoate 200 1 inh inhalation DAILY 04/01/23 02/07/24 History mcg-vilanterol 25 mcg/dose inhalation powder (Breo Ellipta) midodrine 2.5 mg tablet 2.5 mg PO 3XWK 12/31/23 02/07/24 History lanthanum 500 mg chewable tablet 500 mg PO UD 01/24/24 02/07/24 History sevelamer carbonate 800 mg tablet 1,600 mg PO UD 01/24/24 02/07/24 History (Renvela) vancomycin 1,000 mg intravenous 250 mg PO Q6 02/07/24 02/07/24 History injection Patient History Medical History ESRD (end stage renal disease) on dialysis follows with Dr. Reed; Hillary Corley, Luis Carlos - [facility] (since 02/2013) On home oxygen therapy 3 LPM cont History of colon polyps Tobacco use History of GI bleed Renal cyst H/O cardiovascular stress test "05/2013 - negative for ischemia" Pancreatic cyst Obesity Psoriasis Adrenal adenoma Surgical History History of surgery AVF creation History of intestinal surgery Family History Father Myocardial infarction, Onset Age: 64 Diabetes Mother , 87 Alzheimer disease Brother Diabetes Other No family history of adverse response to anesthesia Social History Smoking Status: Former smoker Tobacco Type: Cigarettes Cigarettes Per Day: 3; Second Hand Exposure: Yes; Do You Dip or Chew Tobacco: No; Hx Alcohol Use: No Hx Substance Use: No Preferred Language: Turkish Communication Ability: Effective 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 Beliefs That Will Affect Care: None marital status: / Current Living Situation: Alone current occupational status: retired How many Children do You have: 1 Feels Safe at Home: Yes Assistive Devices: Oxygen - Continuous and Walker Review of Systems Review of Systems: All systems reviewed & are unremarkable except as noted in HPI & below Physical Exam Constitutional: no acute distress Eyes: no conjunctival abnormality ENMT: Ears: no hearing impairment and no external ear abnormality Neck: trachea midline Respiratory: normal respiratory effort; no respiratory distress and no labored breathing Cardiovascular: Rate/Rhythm: regular rate and regular rhythm Gastrointestinal (Abdomen): Abdomen is nondistended overall soft and nonrigid however she has diffuse tenderness with palpation throughout her abdomen which appears to be greatest in the upper portions of her abdomen. There is not appear to be any rebound tenderness or guarding Musculoskeletal: No calf tenderness, feet are warm and well-perfused Skin: no rashes Neurologic: moves all extremities Psychiatric: A+Ox3, euthymic affect Results & Data Vital Signs (Past 12 Hours) Vital Signs Temp Pulse Pulse Resp BP BP Pulse Ox 02/07/24 19:04 72 21 83/33 L 98 02/07/24 17:04 73 02/07/24 17:02 72 22 108/55 L 97 02/07/24 15:03 75 18 113/50 L 100 02/07/24 14:52 74 18 97 02/07/24 14:16 76 17 118/52 L 100 02/07/24 12:46 36.9 C 81 18 103/42 L 100 02/07/24 12:46 36.9 C 81 17 103/42 L 100 02/07/24 12:43 79 O2 Del Method O2 Flow Rate 02/07/24 19:04 Nasal Cannula 3 02/07/24 17:04 02/07/24 17:02 Room Air 02/07/24 15:03 Nasal Cannula 3 02/07/24 14:52 Nasal Cannula 3 02/07/24 14:16 Nasal Cannula 3 02/07/24 12:46 Nasal Cannula 4 02/07/24 12:46 Nasal Cannula 4 02/07/24 12:43 PG Care Time/CCT Total # of Minutes Spent Total Time Spent with Patient: Total time spent is greater than 50% in coordination of care (as documented) at patient's floor/unit and/or counseling patient: Coding Level of Care Code 43456 INT INP/OBS CARE MIN Diagnoses Diverticulitis of small bowel K57.12
[2024-02-07] MEDS ORDERED: ALBUTEROL HFA 8 GM INHALER INH PRN (19:45)
[2024-02-07] MEDS ORDERED: ALBUT/IPRATROP 3MG/0.5MG NEB 3 ML VIAL INH PRN (19:45)
[2024-02-07] MEDS: HEPARIN SOD 5,000 UNIT/0.5 ML VIAL SQ SCH (22:42)
[2024-02-07] MEDS: FLUTICASONE PROPIONATE NA SPR 16 GM BTL SCH (22:42)
[2024-02-07] MEDS: SEVELAMER CARBONATE 800 MG TAB PO SCH (22:43)
--- OUTSIDE RECORDS SUMMARY | 2024-02-08 00:55 | External Medical Summary ---
Author Name Unknown Address Unknown Organization [id number]:[facility] [place] [address] [place] [address] Laboratory Report Ordering Provider Test Date Status HY,DEPAMPHILIS 02/05/2024 05:51:00 Final Observation Date Value Abnormality Reference (Units ) Status Phosphate 02/05/2024 05:51:00 6.3 Above high normal 2. 5-4.8 (mg/dL) Final Performing Location LABORATORY [facility] - [address] [place] [address]
--- OUTSIDE RECORDS SUMMARY | 2024-02-08 00:55 | External Medical Summary ---
Author Name Unknown Address Unknown Organization [id number]:LABORATORY [facility] [address] - [address] [place] [address] Laboratory Report Ordering Provider Test Date Status HY,DEPAMPHILIS 02/05/2024 05:51:00 Final Observation Date Value Abnormality Reference (Units ) Status BUN 02/05/2024 05:51:00 44 Above high normal 6-20 (mg/dL) Final Creatinine 02/05/2024 05:51:00 7.0 Above high normal 0.5-1.0 (mg/dL) Final Glomerular filtration rate/1.73 sq M.predicted [Volume Rate/Area] in Serum, Plasma or Blood by Creatinine-based formula (CKD-EPI) 02/05/2024 05:51:00 6 Below low normal >=60 (mL/min) Final eGFR is calculated based on the CKD-EPI 2020 equation. Sodium 02/05/2024 05:51:00 138 135-146 (m mol/L) Final Potassium 02/05/2024 05:51:00 4.3 3.5-5.1 (m mol/L) Final Cl 02/05/2024 05:51:00 93 Below low normal 98- 107 (mmol/L) Final CO2 02/05/2024 05:51:00 26 22-32 (mmo l/L) Final Anion gap 02/05/2024 05:51:00 19 Above high normal 7- 15 (mmol/L) Final Glucose 02/05/2024 05:51:00 87 70-120 (mg /dL) Final Albumin 02/05/2024 05:51:00 3.3 Below low normal 3.8 -5.0 (g/dL) Final AST (Aspartate aminotransferase) 02/05/2024 05:51:00 18 10-35 (U/L) Fin al Alk Phos 02/05/2024 05:51:00 109 35-130 (U/ L) Final Bilirubin, Total 02/05/2024 05:51:00 0.4 <=1 .2 (mg/dL) Final Calcium 02/05/2024 05:51:00 9.6 8.4-10.2 ( mg/dL) Final Protein 02/05/2024 05:51:00 6.0 6.0-8.3 (g /dL) Final ALT (Alanine aminotransferase) 02/05/2024 05:51:00 17 10-35 (U/L) Vasyl ricks Performing Location LAB[facility]ATORY [facility] [address] - [address] [facility] [address]
--- OUTSIDE RECORDS SUMMARY | 2024-02-08 00:55 | External Medical Summary ---
Author Name Unknown Address Unknown Organization K09:LABORATORY [place] [address] - [address] [place] [address] Laboratory Report Ordering Provider Test Date Status SERENA GUPTA 02/07/2024 06:16:52 Final Observation Date Value Abnormality Reference (Units ) Status SYNC LEUKOCYTES IN BLOOD BY AUTOMATED COUNT 02/07/2024 06:16:52 22.37 Above high normal 4.00-10.80 (K/uL) Final Neutrophils/100 leukocytes in Blood by Manual count 02/07/2024 06:16:52 93.0 Above high normal 40.0-75.0 (%) Final Lymphocytes/100 leukocytes in Blood by Manual count 02/07/2024 06:16:52 1.0 Below low normal 18.0-42.0 (%) Final Monocytes/100 leukocytes in Blood by Manual count 02/07/2024 06:16:52 5.0 1.0-11.0 (%) Final Metamyelocytes/100 leukocytes in Blood by Manual count 02/07/2024 06:16:52 1.0 Above high normal <=0.0 (%) Final Neutrophils [#/volume] in Blood by Manual count 02/07/2024 06:16:52 20.80 Above high normal 1.80-7.70 (K/uL) Final Lymphocytes [#/volume] in Blood by Manual count 02/07/2024 06:16:52 0.22 Below low normal 1.00-4.80 (K/uL) Final Monocytes [#/volume] in Blood by Manual count 02/07/2024 06:16:52 1.12 Above high normal 0.00-1.10 (K/uL) Final Metamyelocytes [#/volume] in Blood by Manual count 02/07/2024 06:16:52 0.22 Above high normal <=0.00 (K/uL) Final Nucleated erythrocytes/100 leukocytes [Ratio] in Blood by Automated count 02/07/2024 06:16:52 Final Performing Location LAB[facility]ATORY [place] [address] [place] [address]
--- OUTSIDE RECORDS SUMMARY | 2024-02-08 00:55 | External Medical Summary | Summary of Care ---
Author Name Unknown Organization [facility] Address [address] [facility] [place] [address] Phone [phone] Care Team Providers Care Bioinformatics Associate Name Role Phone Noam Armando MD Primary Care Provide r Encounter Details Date Type Department Care Team (Late st Contact Info) Description 01/26/2024 Telephone Cardiology, [facility] [address] [place] [address] Christin Mahoney PA-C [address] [place] [address] Allergies Active Allergy Reactions Criticality Noted Date Comments Chlorhexidine Itching Medium 01/03/2019 documented as of this encounter (statuses as of 01/31/2024) Medications Medication Sig Dispensed Refills Start Date End Date Status PROCRIT 15026 UNIT/ML IJ SOLN Per dialysis clinic Active albuterol (VENTOLIN HFA) 108 (90 BASE) MCG/ACT inhalerIndication s:COPD, moderate (HCC) Inhale 2 Puffs by mouth [...] a day as needed for Diarrhea. Active lidocaine-priloca ine (EMLA) 2.5-2.5 % cream [...] Oral Tablet Take by mouth daily. Active Ipratropium-Albut mary 0.5-2.5 (3) MG/3ML Inhalation Solution (Duoneb)Indicatio ns:COPD, moderate ([facility]) INHALE 1 UNIT DOSE VIA NEBULIZER 4 TIMES A DAY NEEDED. DX: J44.9 (PATIENT CURRENTLY USING 1-2 TIMES PER DAY.) 360 mL 5 04/18/2023 Active Lidocaine 5 % External Patch (Lidoderm) Place 1 Patch over 12 hours topically on the skin daily. Apply to affected area 30 Patch 05/30/2023 Active Additional Information Patient not taking.Informant: Patient, Reported on 11/25/2023 IndoorAtlas Mini w/Device KitIndications:Ty pe 2 diabetes, HbA1C goal < 8% ([facility]) test blood sugar up to 3 [...] of dialysis 3 times a week Active Celladon Ultra In Vitro Strip (Glucose Blood)Indications :Type 2 diabetes, HbA1C goal < 8% ([facility]) TEST BLOOD SUGAR 3 TIMES DAILY DX E11.9 300 Strip 1 10/04/2023 Active Amiodarone HCl 200 MG Oral Tablet (Cordarone)Indica tions:Hypertensiv e heart and kidney disease with chronic diastolic congestive heart failure and stage 5 chronic kidney disease on chronic dialysis ([facility]) Take 1 Tablet by mouth in the morning. 90 Tablet 3 10/18/2023 Active Fluticasone Furoate-Vilantero l 200-25 MCG/ACT Inhalation Aerosol Powder Breath Activated (BREO ellipta) Inhale 1 Puff by mouth in the morning. 60 Blister Dosing Unit 11 01/02/2024 Active documented as of this encounter (statuses as of 01/31/2024) Active Problems Problem Noted Date Diagnosed Date [...] BELOW 100 03/10/2009 Overview: Per Lipid Taxonomy. Other psoriasis and similar disorders 04/12/2005 CERVICAL DISC DEGEN 11/22/2003 GENERAL OSTEOARTHROSIS 09/06/2001 Adrenal adenoma Overview: left documented as of this encounter (statuses as of 01/31/2024) Resolved Problems Problem Noted Date Diagnosed Date Resolved Date Malfunction of arteriovenous dialysis fistula 08/15/19 22 10/02/2021 Influenza B 07/04/2017 12/28/2017 Acute GI bleeding 07/01/2017 12/28/2017 Acute blood loss anemia 07/01/201705/2017 COPD, severity to be determined 07/01/2017 07/14/2017 [...] 02/02/200605/2017 Overview: Colonoscopy 01/31/06--hyperplastic polyp--repeat 10 years ADVANCE DIRECTIVE INFORMATION 04/12/2005 01/30/2024 Overview: No, Advance Directive brochure given to patient at prior appointment. DIAB RENAL MANIF ADULT 04/12/200512/28 Renal failure [...] as of this encounter (statuses as of 01/31/2024) Immunizations Name Administration Dates Next Due COVID-19 mRNA, LNP-s, No Pre serve, 2-Dose Series (Wunsch-Brautkleid) 02/12/2021,05/22/2020,05/01/2020 COVID-19, mRNA, LNP-s, PF, B ooster, 100mcg/0.5mg (Moderna) 08/04/2021 Covid-19, Mrna, Lnp-s, Pf, B ivalent, 50 Mcg, IM, 12 yrs and above (Moderna) 01/07/2022 Hepatitis B, 20+ yrs 11/08/2017,07/13/19 18,06/07/2017,04/28,08/14/2015,05/15/2015,04/10/19 16 PPD 10/30/2002 Pneumococcal Conjugate Vacc, 13 Valent (Prevnar) 02/24/2015 Pneumococcal Polysaccharide PPV23 (Pneumovax) 09/04/2012,08/24/2005 Seasonal Influenza Vac., MDV , IM, 0.5 mL (Fluzone) 12/26/2014,01/09/2014,01/08/2013,12/27,01/12/2011,01/27/2010,12/06/19 09,02/24/2007,01/31/2004,01/31/2003,1 04/23/2001 02/01/2004 Seasonal Influenza Virus Vac cine, Unspecified Formulation 12/13/2018,12/14/2017,01/21/2016,12/26,01/08/2013,01/20/2012,01/13/20 11,01/27/2010,12/05/2008,02/24/2007,1 04/01/2003,01/31/2003,02/21/2002 Seasonal Influenza, High Dos e, Trivalent, PF, IM (Fluzone HD) 01/17/2020 Seasonal Influenza, PF, 6 M & above, IM , (FluLaval or Fluzone) 12/21/2016 Seasonal Influenza, Quadriva lent Hd (Fluzone Hd) 12/03/2022(Deferred: Patient Refused - Dr. Jose Rafael Rocha, patient recieves from [facility] nurse later in season),12/15/2021,12/30/2020 Seasonal Influenza, Quadriva [...] encounter Miscellaneous Notes * Telephone Encounter - Dave Elizabeth OSA - 01/31/2024 10:18 AM EST LM for patient to call back to schedule. * Telephone Encounter - Christin Mahoney PA-C - 01/30/2024 5:01 PM EST I also don't have any openings. Can watch for cancellations or offer Abhijeet Miner if she is willing * Telephone Encounter - Stevo Velasquez PA-C - 01/30/2024 4:44 PM EST I do not see anywhere to add another patient on to my schedule in [place]. My recommendation would be to watch for a cancellation or look for an opening with another provider that meets patient'scriteria for an appointment due to dialysis schedule. Stevo Velasquez PA-C Department of Cardiology * Telephone Encounter - Dave Elizabeth OSA - 01/30/2024 10:16 AM EST Christin, and Stevo, I will setup an appt at [facility], however, there is no openings as of now. Do you two have a day and time that I can ovverride an appointment for [facility]. Please advise, thank you. * Telephone Encounter - Christin Mahoney PA-C - 01/26/2024 2:06 PM EDT Patient admitted with near syncopal episode with dialysis. Likely discharged in the next 1-2 days She needs 2 week ZIO arranged upon discharge. Order placed. Also arrange hosp f/u in [place] with Eva or Denzel after ZIO results available. Needs Tues/Thurs in the afternoon due to dialysis sessions documented in this encounter Plan of Treatment Upcoming Encounters Date Type Department Care Team (Late st Contact Info) Description 02/03/2024 4:00 PM EST Home Visit [facility], [facility] [address] [place] [address] Elly Honeycutt, MICHELLE [address] [place] [address] 02/08/2024 9:45 AM EST Scheduled Telephone [facility], [facility] [address] [place] [address] Yanci Odonnell, [address] [place] [address] 04/06/2024 12:20 PM EST Office Visit [address] [phone] Nadiya Blackwell PA-C [address] [place] [address] [place] [address] 10/19/2024 1:40 PM EDT Office Visit [address] [phone] Noam Armando MD [address] [place] [address] [place] [address] Scheduled Orders Name Type Priority Associated Diagnoses Orde r Schedule EXTERNAL EKG 8 TO 15 DAYS Holter Routine Paroxysmal atrial fibrillation (HCC) Bradycardia, sinus Near syncope Expected: 01/26/2024 (Approximate), Expires: 01/25/2025 Health Maintenance Due Date Last Done Comments DISCUSS TOBACCO CESSATION (REFER TO SMARTSET #[id number]) 1945 Alpha-1 Antitrypsin 1965 Adult Wellness Visit [...] 04/22/2021, Additional history exists Diabetic Eye Exam 11/23/2024 11/24/2023, , 11/25/2022, Additional history exists O2 ASSESSMENT COMPLETED IN [...] this encounter Medical Devices Implanted Type Area Fashion Illustrator Device Identifier Shelf Expiration Date Model / Serial / Lot [employer]_Vortx Lizzette - 18_5 Mm X 5.5 Mm Implanted:Qty: 1 on 07/01/2017 by Harsha Vázquez MD at RADIOLOGY [facility] N/A: Abdomen [employer] : INTRV RAD 08/10/2019 [id number] / [id number] / [id number] Description:VortX Lizzette - 18 ([employer]). 5 mm x 5.5 mm. GTIN: [id number]. Ref: [id number]. Lot: [id number]. Exp: 08/10/2019 [employer]_Tornado Embolization Microcoil_4/2 Implanted:Qty: 2 on 07/01/2017 by Harsha Vázquez MD at RADIOLOGY [facility] N/A: Abdomen COOK : INTRV RAD 09/06/2021 [id number] / [id number]-18S- 4/2-TORNA DO / [id number] Description:Tornado Emboliza tion Microcoil ([employer]). Ref: [id number]/[id number]. Ref: [id number]. Lot: [id number]. Exp: 09/06/2021. [employer]_Vortx Lizzette - 18_5 Mm X 5.5 Mm Implanted:Qty: 4 on 07/01/2017 by Harsha Vázquez MD at RADIOLOGY [facility] N/A: Abdomen [employer] : INTRV RAD 07/25/2018 [id number] 50 / [id number] / [id number] Description:VortX Lizzette - 18 ([employer]). 5 mm x 5.5 mm. GTIN: [id number]. Ref: [id number]. Lot: [id number]. Exp: 07/25/2018 [employer]_Tornado Embolization Microcoil_7 Implanted:Qty: 2 on 07/01/2017 by Harsha Vázquez MD at RADIOLOGY [facility] N/A: Abdomen COOK : INTRV RAD 09/09/2021 [id number] / [id number]-18S- 7/-TORNA DO / [id number] Description:Tornado Emboliza tion Microcoil ([employer]). Ref: [id number]/[id number]. Ref: [id number]. Lot: [id number]. Exp: 09/09/2021. documented as of this encounter Visit Diagnoses Diagnosis Paroxysmal atrial fibrillation (HCC)- Primary Atrial fibrillation Bradycardia, sinus Other specified cardiac dysrhythmias Near syncope Syncope and collapse documented in this encounter Advance Directives * Full Code [...] Directives occurred with: Not Discussed Care Teams Bioinformatics Associate Relationship Specialty Start Date End Date Noam Armando MD [address] [place] [address] [place] [address] PCP - General Family Medicine 08/10/18 documented as of this encounter
--- OUTSIDE RECORDS SUMMARY | 2024-02-08 00:55 | External Medical Summary ---
Author Name Unknown Address Unknown Organization K09:[facility] [place] [address] Laboratory Report Ordering Provider Test Date Status SERENA GUPTA 02/07/2024 06:16:52 Final Observation Date Value Abnormality Reference (Units ) Status WBC, Total 02/07/2024 06:16:52 22.37 Above high normal 4 .00-10.80 (K/uL) Final RBC 02/07/2024 06:16:52 2.96 3.85-5.15 (M/uL) Final Hemoglobin 02/07/2024 06:16:52 11.5 Below low normal 12 .0-15.3 (g/dL) Final HCT 02/07/2024 06:16:52 36.0 36.0-45.2 (%) Final MCV 02/07/2024 06:16:52 121.6 81.5-97.5 (fL) Final MCH 02/07/2024 06:16:52 38.9 27.0-34.0 (pg) Final MCHC 02/07/2024 06:16:52 31.9 32.0-36.0 (g/dL) Final RDW 02/07/2024 06:16:52 13.2 11.5-15.5 (%) Final Platelets 02/07/2024 06:16:52 164 140-400 (K /uL) Final MPV 02/07/2024 06:16:52 11.7 6.6-11.1 ( fL) Final Performing Location [facility] [place] [address]
--- OUTSIDE RECORDS SUMMARY | 2024-02-08 00:55 | External Medical Summary ---
Author Name Unknown Address Unknown Organization [id number] [address] [place] [address] Laboratory Report Ordering Provider Test Date Status HY,DEPAMPHILIS 02/05/2024 05:51:00 Final Observation Date Value Abnormality Reference (Units ) Status WBC, Total 02/05/2024 05:51:00 14.67 Above high normal 4 .00-10.80 (K/uL) Final RBC 02/05/2024 05:51:00 2.93 3.85-5.15 (M/uL) Final Hemoglobin 02/05/2024 05:51:00 11.4 Below low normal 12 .0-15.3 (g/dL) Final HCT 02/05/2024 05:51:00 35.0 Below low normal 36. 0-45.2 (%) Final MCV 02/05/2024 05:51:00 119.5 81.5-97.5 (fL) Final MCH 02/05/2024 05:51:00 38.9 27.0-34.0 (pg) Final MCHC 02/05/2024 05:51:00 32.6 32.0-36.0 (g/dL) Final RDW 02/05/2024 05:51:00 13.1 11.5-15.5 (%) Final Platelets 02/05/2024 05:51:00 169 140-400 (K /uL) Final MPV 02/05/2024 05:51:00 11.4 6.6-11.1 ( fL) Final [facility] Location [facility] [address] [place] [address]
--- OUTSIDE RECORDS SUMMARY | 2024-02-08 00:55 | External Medical Summary ---
Author Name Unknown Address Unknown Organization K0G:[facility] [address] [place] [address] Laboratory Report Ordering Provider Test Date Status HY,DEPAMPHILIS 02/05/2024 05:51:00 Final Observation Date Value Abnormality Reference (Units ) Status SYNC LEUKOCYTES IN BLOOD BY AUTOMATED COUNT 02/05/2024 05:51:00 14.67 Above high normal 4.00-10.80 (K/uL) Final Neutrophils/100 leukocytes in Blood by Manual count 02/05/2024 05:51:00 84.0 Above high normal 40.0-75.0 (%) Final Lymphocytes/100 leukocytes in Blood by Manual count 02/05/2024 05:51:00 4.0 Below low normal 18.0-42.0 (%) Final Monocytes/100 leukocytes in Blood by Manual count 02/05/2024 05:51:00 9.0 1.0-11.0 (%) Final Eosinophils/100 leukocytes in Blood by Manual count 02/05/2024 05:51:00 1.0 0.0-6.0 (%) Final Metamyelocytes/100 leukocytes in Blood by Manual count 02/05/2024 05:51:00 2.0 Above high normal <=0.0 (%) Final Neutrophils [#/volume] in Blood by Manual count 02/05/2024 05:51:00 12.32 Above high normal 1.80-7.70 (K/uL) Final Lymphocytes [#/volume] in Blood by Manual count 02/05/2024 05:51:00 0.59 Below low normal 1.00-4.80 (K/uL) Final Monocytes [#/volume] in Blood by Manual count 02/05/2024 05:51:00 1.32 Above high normal 0.00-1.10 (K/uL) Final Eosinophils [#/volume] in Blood by Manual count 02/05/2024 05:51:00 0.15 0.00-0.70 (K/uL) Final Metamyelocytes [#/volume] in Blood by Manual count 02/05/2024 05:51:00 0.29 Above high normal <=0.00 (K/uL) Final Nucleated erythrocytes/100 leukocytes [Ratio] in Blood by Automated count 02/05/2024 05:51:00 Final Performing Location [facility]ORY [facility] [address] [facility] [address]
--- OUTSIDE RECORDS SUMMARY | 2024-02-08 00:55 | External Medical Summary | Summary of Care ---
Author Name Unknown Organization [facility] Address [address] [facility] [place] [address] Phone [phone] Care Team Providers Care Captain Airline Pilot Name Role Phone Noam Armando MD Primary Care Provide r Encounter Details Date Type Department Care Team (Late st Contact Info) Description 01/26/2024 Telephone Cardiology, [facility] [address] [place] [address] Christin Mahoney PA-C [address] [place] [address] Allergies Active Allergy Reactions Criticality Noted Date Comments Chlorhexidine Itching Medium 01/03/2019 documented as of this encounter (statuses as of 02/01/2024) Medications Medication Sig Dispensed Refills Start Date End Date Status PROCRIT 18717 UNIT/ML IJ SOLN Per dialysis clinic Active [...] MG/3ML Inhalation Solution (Duoneb)Indicatio ns:COPD, moderate ([facility]) INHALE 1 UNIT DOSE VIA NEBULIZER 4 TIMES A DAY NEEDED. DX: J44.9 (PATIENT CURRENTLY USING 1-2 TIMES PER DAY.) 360 mL 5 04/18/2023 Active Lidocaine 5 % External Patch (Lidoderm) Place 1 Patch over 12 hours topically on the skin daily. 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 90 Tablet 3 10/18/2023 Active Fluticasone Furoate-Vilantero l 200-25 MCG/ACT Inhalation Aerosol Powder Breath Activated (BREO ellipta) Inhale 1 Puff by mouth in the morning. 60 Blister Dosing Unit 11 01/02/2024 Active documented as of this encounter (statuses as of 02/01/2024) Active Problems Problem Noted Date Diagnosed Date [...] as of this encounter (statuses as of 02/01/2024) Resolved Problems Problem Noted Date Diagnosed Date [...] as of this encounter (statuses as of 02/01/2024) Immunizations Name Administration Dates Next Due COVID-19 mRNA, LNP-s, No Pre serve, 2-Dose Series ([facility]) 02/12/2021,05/22/2020,05/01/2020 COVID-19, mRNA, LNP-s, PF, B ooster, [...] Dr. Jose Rafael Rocha, patient recieves from [facility] nurse later in season),12/15/2021,12/30/2020 Seasonal Influenza, Quadriva [...] Telephone Encounter - Dave Elizabeth OSA - 02/01/2024 9:29 AM EST LM for patient to call back to schedule. * Telephone Encounter - Dave Elizabeth OSA [...] another patient on to my schedule in [place]. My recommendation would be to watch for a cancellation or look for an opening with another provider that meets patient'scriteria for an appointment due to dialysis schedule. Stevo Velasquez PA-C Department of Cardiology * Telephone Encounter - Dave Elizabeth OSA - 01/30/2024 10:16 AM EST Christin, and Stevo, I will setup an appt at [facility], however, there is no openings as of now. Do you two have a day and time that I can ovverride an appointment for [facility]. Please advise, thank you. * Telephone Encounter - Christin Mahoney PA-C - 01/26/2024 2:06 PM EDT Patient admitted with near syncopal episode with dialysis. Likely discharged in the next 1-2 days She needs 2 week ZIO arranged upon discharge. Order placed. Also arrange hosp f/u in [place] with Eva or Denzel after ZIO results available. Needs Tues/Thurs in the afternoon due to dialysis sessions documented in this encounter Plan of Treatment Upcoming Encounters Date Type Department Care Team (Late st Contact Info) Description 02/03/2024 4:00 PM EST Home Visit [facility], [address] [place] [address] Elly Honeycutt, MICHELLE [address] [place] [address] 02/08/2024 9:45 AM EST Scheduled Telephone [facility], [facility] [address] [facility] [place] [address] BlasYanci, [address] [place] [address] 04/06/2024 12:20 PM EST Office Visit [address] [phone] Nadiya Blackwell PA-C [address] [place] [address] [place] [address] 10/19/2024 1:40 PM EDT Office Visit [address] [phone] Noam Armando MD [address] [place] [address] [place] [address] Scheduled Orders Name Type Priority Associated Diagnoses [...] this encounter Medical Devices Implanted Type Area Supervisor Orchard Device Identifier Shelf Expiration Date Model / Serial / Lot [employer]_Vortx Lizzette - 18_5 Mm X 5.5 Mm Implanted:Qty: 1 on 07/01/2017 by Harsha Vázquez MD at RADIOLOGY [facility] N/A: Abdomen [employer] : INTRV RAD 08/10/2019 [id number] / [id number] / [id number] Description:VortX Lizzette - 18 ([employer]). 5 mm x 5.5 mm. GTIN: [id number]. Ref: [id number]. Lot: [id number]. Exp: 08/10/2019 [employer]_Tornado Embolization Microcoil_4/2 Implanted:Qty: 2 on 07/01/2017 by Harsha Vázquez MD at RADIOLOGY [facility] N/A: Abdomen COOK : INTRV RAD 09/06/2021 [id number] / MWCE-18S- 4/-TORNA DO / [id number] Description:Tornado Emboliza tion Microcoil ([employer]). Ref: [id number]-4/-TORNADO. Ref: [id number]. Lot: [id number]. Exp: 09/06/2021. [employer]_Vortx Lizzette - 18_5 Mm X 5.5 Mm Implanted:Qty: 4 on 07/01/2017 by Harsha Vázquez MD at RADIOLOGY [facility] N/A: Abdomen [employer] : INTRV RAD 07/25/2018 [id number] 50 / [id number] / [id number] Description:VortX Lizzette - 18 ([employer]). 5 mm x 5.5 mm. GTIN: [id number]. Ref: [id number]. Lot: [id number]. Exp: 07/25/2018 [employer]_Tornado Embolization Microcoil_7/3 Implanted:Qty: 2 on 07/01/2017 by Harsha Vázquez MD at RADIOLOGY [facility] N/A: Abdomen COOK : INTRV RAD 09/09/2021 [id number] / MWCE-18S- 7/-TORNA DO / [id number] Description:Tornado Emboliza tion Microcoil ([employer]). Ref: [id number]-7/3-TORNADO. Ref: [id number]. Lot: [id number]. Exp: 09/09/2021. documented as of this encounter [...] Directives occurred with: Not Discussed Care Teams Captain Airline Pilot Relationship Specialty Start Date End Date Noam Amrando MD [address] [place] [address] [place] [address] PCP - General Family Medicine 08/10/18 documented as of this encounter
--- OUTSIDE RECORDS SUMMARY | 2024-02-08 00:55 | External Medical Summary | Summary of Care ---
Author Name Unknown Organization [facility] Address [address] [facility] [place] [address] Phone [phone] Care Team Providers Care Manager Pool Name Role Phone Noam Armando MD Primary Care Provide r Encounter Details Date Type Department Care Team (Late st Contact Info) Description 01/26/2024 Telephone Cardiology, [facility] [address] [place] [address] Christin Mahoney PA-C [address] [place] [address] Allergies Active Allergy Reactions Criticality Noted Date Comments Chlorhexidine Itching Medium 01/03/2019 documented as of this encounter (statuses as of 02/02/2024) Medications Medication Sig Dispensed Refills Start Date End Date Status PROCRIT 69827 UNIT/ML IJ SOLN Per dialysis clinic Active [...] (3) MG/3ML Inhalation Solution (Duoneb)Indicatio ns:COPD, moderate ([facility]) INHALE 1 UNIT DOSE VIA NEBULIZER 4 TIMES A DAY NEEDED. DX: J44.9 (PATIENT CURRENTLY USING 1-2 TIMES PER DAY.) 360 mL 5 04/18/2023 Active Lidocaine 5 % External Patch (Lidoderm) Place 1 Patch over 12 hours topically on the skin daily. 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 90 Tablet 3 10/18/2023 Active Fluticasone Furoate-Vilantero l 200-25 MCG/ACT Inhalation Aerosol Powder Breath Activated (BREO ellipta) Inhale 1 Puff by mouth in the morning. 60 Blister Dosing Unit 11 01/02/2024 Active documented as of this encounter (statuses as of 02/02/2024) Active Problems Problem Noted Date Diagnosed Date [...] as of this encounter (statuses as of 02/02/2024) Resolved Problems Problem Noted Date Diagnosed Date [...] as of this encounter (statuses as of 02/02/2024) Immunizations Name Administration Dates Next Due COVID-19 mRNA, LNP-s, No Pre serve, 2-Dose Series ([employer]) 02/12/2021,05/22/2020,05/01/2020 COVID-19, mRNA, LNP-s, PF, B ooster, [...] Dr. Jose Rafael Rocha, patient recieves from [facility] nurse later in season),12/15/2021,12/30/2020 Seasonal Influenza, Quadriva [...] Telephone Encounter - Dave Elizabeth OSA - 02/02/2024 1:49 PM EST Called patient, LM that I do have an appt on 03/27 and that we will need to schedule a ZIO patch Thao. * Telephone Encounter - Dave Elizabeth OSA - 02/01/2024 3:32 PM EST Patient is scheduled in [facility] on: RETURN CARDIOLOGY at 1:30 PM (30 min)Arrive by 1:15 PM Wednesday March 27, 2024 Appointment Provider:Stevo Velasquez PA-C in CARDIOLOGY [facility] Will call again tomorrow. * Telephone Encounter - Dave Elizabeth OSA - 02/01/2024 9:29 AM EST LM for patient to call back to schedule. * Telephone Encounter - Dave Elizabeth OSA - 01/31/2024 10:18 AM EST LM for patient to call back to schedule. * Telephone Encounter - Christin aMhoney PA-C - 01/30/2024 5:01 PM EST I also don't have any openings. Can watch for cancellations or offer Abhijeet Miner if she is willing * Telephone Encounter - Stevo Velasquez PA-C - 01/30/2024 4:44 PM EST I do not see anywhere to add another patient on to my schedule in [place]. My recommendation would be to watch for a cancellation or look for an opening with another provider that meets patient'scriteria for an appointment due to dialysis schedule. Stevo Velasquez PA-C Department of Cardiology * Telephone Encounter - Dave Elizabeth OSA - 01/30/2024 10:16 AM EST Christin, and Stevo, I will setup an appt at [facility], however, there is no openings as of now. Do you two have a day and time that I can ovverride an appointment for [facility]. Please advise, thank you. * Telephone Encounter - Christin Mahoney PA-C - 01/26/2024 2:06 PM EDT Patient admitted with near syncopal episode with dialysis. Likely discharged in the next 1-2 days She needs 2 week ZIO arranged upon discharge. Order placed. Also arrange hosp f/u in [place] with Eva or Denzel after ZIO results available. Needs Tues/Thurs in the afternoon due to dialysis sessions documented in this encounter Plan of Treatment Upcoming Encounters Date Type Department Care Team (Late st Contact Info) Description 02/08/2024 9:45 AM EST Scheduled Telephone [facility], [facility] [address] [facility] [place] [address] Yanci Odonnell, [address] [facility] [place] [address] 03/27/2024 1:30 PM EST Office Visit Cardiology [address] [place] [address] Stevo Velasquez PA-C [address] [place] [address] 04/06/2024 12:20 PM EST Office Visit Family Medicine [address] [place] [phone] Nadiya Blackwell PA-C [address] [place] [address] [place] [address] 10/19/2024 1:40 PM EDT Office Visit Family Medicine [address] [phone] Noam Armando MD [address] [place] [address] [place] [address] Scheduled Orders Name Type Priority Associated Diagnoses Orde r Schedule EXTERNAL EKG 8 TO 15 DAYS Holter Routine Paroxysmal atrial fibrillation (HCC) Bradycardia, sinus Near syncope Expected: 01/26/2024 (Approximate), Expires: 01/25/2025 Health Maintenance Due Date Last Done Comments DISCUSS TOBACCO CESSATION (REFER TO SMARTSET #3501) 1945 Alpha-1 Antitrypsin 1965 Adult Wellness Visit [...] this encounter Medical Devices Implanted Type Area Adventure Therapist Device Identifier Shelf Expiration Date Model / Serial / Lot [employer]_Vortx Lizzette - 18_5 Mm X 5.5 Mm Implanted:Qty: 1 on 07/01/2017 by Harsha Vázquez MD at [facility] N/A: Abdomen [employer] : INTRV RAD 08/10/2019 [id number] 50 / [id number] / [id number] Description:VortX Lizzette - 18 ([employer]). 5 mm x 5.5 mm. GTIN: [id number]. Ref: [id number]. Lot: [id number]. Exp: 08/10/2019 [employer] Medical_Tornado Embolization Microcoil_4/2 Implanted:Qty: 2 on 07/01/2017 by Harsha Vázquez MD at [facility] N/A: Abdomen COOK : INTRV RAD 09/06/2021 [id number] / MWCE-18S- 4/2-TORNA DO / [id number] Description:Tornado Emboliza tion Microcoil ([employer]). Ref: MWCE-18S-4/2-TORNADO. Ref: [id number]. Lot: [id number]. Exp: 09/06/2021. [employer]_Vortx Lizzette - 18_5 Mm X 5.5 Mm Implanted:Qty: 4 on 07/01/2017 by Harsha Vázquez MD at [facility] N/A: Abdomen [employer] : INTRV RAD 07/25/2018 [id number] 50 / [id number] / [id number] Description:VortX Lizzette - 18 ([employer]). 5 mm x 5.5 mm. GTIN: [id number]. Ref: [id number]. Lot: [id number]. Exp: 07/25/2018 [employer] Medical_Tornado Embolization Microcoil_7/3 Implanted:Qty: 2 on 07/01/2017 by Harsha Vázquez MD at [facility] N/A: Abdomen COOK : INTRV RAD 09/09/2021 [id number] / MWCE-18S- 7/3-TORNA DO / [id number] Description:Juan Antonio Emboliza tion Microcoil ([employer]). Ref: [id number]-09/27-JUAN ANTONIO. Ref: [id number]. Lot: [id number]. Exp: 09/09/2021. documented as of this encounter [...] Directives occurred with: Not Discussed Care Teams Manager Pool Relationship Specialty Start Date End Date Noam Armando MD [address] [place] [address] [place] [address] PCP - General Family Medicine 08/10/18 documented as of this encounter
--- OUTSIDE RECORDS SUMMARY | 2024-02-08 00:55 | External Medical Summary | Summary of Care ---
Author Name Unknown Organization [facility] Address [address] [facility] [place] [address] Phone [phone] Care Team Providers Care Cigar Inspector Name Role Phone Noam Armando MD Primary Care Provide r Encounter Details Date Type Department Care Team (Late st Contact Info) Description 01/26/2024 Telephone Cardiology, [facility] [address] [place] [address] Christin Mahoney PA-C [address] [place] [address] Allergies Active Allergy Reactions Criticality Noted Date Comments Chlorhexidine Itching Medium 01/03/2019 documented as of this encounter (statuses as of 02/01/2024) Medications Medication Sig Dispensed Refills Start Date End Date Status PROCRIT 92573 UNIT/ML IJ SOLN Per dialysis clinic Active [...] Solution (Duoneb)Indicatio ns:COPD, moderate ([facility]) INHALE 1 UNIT DOSE VIA NEBULIZER 4 TIMES A DAY NEEDED. DX: J44.9 (PATIENT CURRENTLY USING 1-2 TIMES PER DAY.) 360 mL 5 04/18/2023 Active Lidocaine 5 % External Patch (Lidoderm) Place 1 Patch over 12 hours topically on the skin daily. 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 Jose Rafael Rocha, patient recieves from [facility] [place] later in season),12/15/2021,12/30/2020 Seasonal Influenza, Quadriva [...] 3:32 PM EST Patient is scheduled in [facility] on: RETURN CARDIOLOGY at 1:30 PM (30 min)Arrive by 1:15 PM Wednesday March 27, 2024 Appointment Provider:Stevo Velasquez PA-C in CARDIOLOGY [facility] Will call again tomorrow. * [...] another patient on to my schedule in [place]. My recommendation would be to watch for a cancellation or look for an opening with another provider that meets patient'scriteria for an appointment due to dialysis schedule. Stevo Velasquez PA-C Department of Cardiology * Telephone Encounter - Dave Elizabeth OSA - 01/30/2024 10:16 AM EST Christin, and Stevo, I will setup an appt at [facility], however, there is no openings as of now. Do you two have a day and time that I can ovverride an appointment for [facility]. Please advise, thank you. * Telephone Encounter - Christin Mahoney PA-C - 01/26/2024 2:06 PM EDT Patient admitted with near syncopal episode with dialysis. Likely discharged in the next 1-2 days She needs 2 week ZIO arranged upon discharge. Order placed. Also arrange hosp f/u in [place] with Eva Mahoney after ZIO results available. Needs Tues/Thurs in the afternoon due to dialysis sessions documented in this encounter Plan of Treatment Upcoming Encounters Date Type Department Care Team (Late st Contact Info) Description 02/03/2024 4:00 PM EST [facility] Visit [facility], [facility] [address] [address] Elly Honeycutt, RN [address] [place] [address] 02/08/2024 9:45 AM EST Scheduled Telephone [facility], [facility] [address] [facility] [address] [facility] [place] [address] Yanci Odonnell [address] [place] [address] 03/27/2024 1:30 PM EST Office Visit Cardiology [address] [place] [address] Stevo Velasquez PA-C [address] [place] [address] 04/06/2024 12:20 PM EST Office Visit Family Medicine [address] [place] [phone] Nadiya Blackwell PA-C [address] [place] [address] [place] [address] 10/19/2024 1:40 PM EDT Office Visit Family Medicine [address] [place] [phone] Noam Armando MD [address] [place] [address] [place] [address] Scheduled Orders Name Type Priority Associated Diagnoses Orde r Schedule EXTERNAL EKG 8 TO 15 DAYS Holter Routine Paroxysmal atrial fibrillation (HCC) Bradycardia, sinus Near syncope Expected: 01/26/2024 (Approximate), Expires: 01/25/2025 Health Maintenance Due Date Last Done Comments DISCUSS TOBACCO CESSATION (REFER TO SMARTSET #7609) 1945 Alpha-1 Antitrypsin 1965 Adult Wellness Visit [...] this encounter Medical Devices Implanted Type Area Senior Vice President And Chief Information Officer Device Identifier Shelf Expiration Date Model / Serial / Lot [employer]_Vortx Lizzette - 18_5 Mm X 5.5 Mm Implanted:Qty: 1 on 07/01/2017 by Harsha Vázquez MD at RADIOLOGY [facility] N/A: Abdomen [employer] : INTRV RAD 08/10/2019 [id number] / [id number] / [id number] Description:VortX Lizzette - 18 ([employer]). 5 mm x 5.5 mm. GTIN: [id number]. Ref: [id number]. Lot: [id number]. Exp: 08/10/2019 [employer]_Tornado Embolization Microcoil_4/2 Implanted:Qty: 2 on 07/01/2017 by Harsha Vázquez MD at RADIOLOGY [facility] N/A: Abdomen COOK : INTRV RAD 09/06/2021 [id number] / [id number]-18S- 4/2-TORNA DO / [id number] Description:Tornado Emboliza tion Microcoil (Recorrido). Ref: [id number]-4/2-TORNADO. Ref: [id number]. Lot: [id number]. Exp: 09/06/2021. [employer]_Vortx Lizzette - 18_5 Mm X 5.5 Mm Implanted:Qty: 4 on 07/01/2017 by Harsha Vázquez MD at RADIOLOGY [facility] N/A: Abdomen [employer] : INTRV RAD 07/25/2018 [id number] 50 / [id number] / [id number] Description:VortX Lizzette - 18 ([employer]). 5 mm x 5.5 mm. GTIN: [id number]. Ref: [id number]. Lot: [id number]. Exp: 07/25/2018 [employer]_Tornado Embolization Microcoil_7/3 Implanted:Qty: 2 on 07/01/2017 by Harsha Vázquez MD at RADIOLOGY [facility] N/A: Abdomen COOK : INTRV RAD 09/09/2021 [id number] / MWCE-18S- 7/3-TORNA DO / [id number] Description:Juan Antonio Emboliza tion Microcoil (Recorrido). Ref: [id number]-09/27-JUAN ANTONIO. Ref: [id number]. Lot: [id number]. Exp: 09/09/2021. documented as of this encounter [...] Directives occurred with: Not Discussed Care Teams Cigar Inspector Relationship Specialty Start Date End Date Noam Armando MD [address] [place] [address] [place] [address] PCP - General Family Medicine 08/10/18 documented as of this encounter
--- OUTSIDE RECORDS SUMMARY | 2024-02-08 00:55 | External Medical Summary | Summary of Care ---
Author Name Unknown Organization [facility] Address [address] [facility] [place] [address] Phone [phone] Care Team Providers Care Federal Air Marshal Name Role Phone Noam Armando MD Primary Care Provide r Encounter Details Date Type Department Care Team (Late st Contact Info) Description 01/26/2024 Telephone Cardiology, [facility] [address] [place] [address] Christin Mahoney PA-C [address] [place] [address] Allergies Active Allergy Reactions Criticality Noted Date Comments Chlorhexidine Itching Medium 01/03/2019 documented as of this encounter (statuses as of 02/06/2024) Medications PROCRIT 80440 UNIT/ML IJ SOLN Per dialysis clinic Active albuterol (VENTOLIN HFA) 108 (90 BASE) MCG/ACT inhalerIndicati ons:COPD, moderate (HCC) Inhale 2 Puffs by mouth every 4 hours as needed for Wheezing. 1 Inhaler 5 5 Active oxygen GAS Use 3 L/min(Oxygen) as directed. At bedtime and as needed during the day-patient reports oxygen is continuous 7 Active Acetaminophen 325 MG Oral Tablet Take 2 Tablets by mouth every 6 hours as needed for Pain. Active valACYclovir (VALTREX) 1000 MG Tablet Take 1 Tablet by mouth in the morning. 4 7 Active Camphor-Menthol 0.5-0.5 % External Lotion Apply topically to affected area as needed for Itching. Apply to affected areas as needed 7 Active Loperamide HCl 2 MG Oral Capsule Take 1 Capsule by mouth 4 times a day as needed for Diarrhea. Active lidocaine-prilo ian (EMLA) 2.5-2.5 % cream APPLY SMALL AMOUNT TO ACCESS SITE 1 TO 2 HOURS BEFORE DIALYSIS. COVER WITH OCCLUSIVE DRESSING (SARAN WRAP). 30 g 11 7 Active Fluorometholone 0.1 % Ophthalmic Suspension 1 Drop. 1 drop left eye 2 Active Fluticasone Propionate 50 MCG/ACT Nasal Suspension (Flonase) USE 2 SPRAYS IN EACH NOSTRIL DAILY 48 mL 3 3 Active Arabella-Tika Oral Tablet Take by mouth daily. Active Ipratropium-Alb uterol 0.5-2.5 (3) MG/3ML Inhalation Solution (Duoneb)Indicat ions:COPD, moderate (HCC) INHALE 1 UNIT DOSE VIA NEBULIZER 4 TIMES A DAY NEEDED. DX: J44.9 (PATIENT CURRENTLY USING 1-2 TIMES PER DAY.) 360 mL 5 4 Active Lidocaine 5 % External Patch (Lidoderm) Place 1 Patch over 12 hours topically on the skin daily. Apply to affected area 30 Patch 4 Active Additional Information Patient not taking.Informant: Patient, Reported on 11/25/2023 NetVision Mini w/Device KitIndications: Type 2 diabetes, HbA1C goal < 8% ([facility]) test blood sugar up to 3 times daily 1 Kit 4 Active Additional Information Patient not taking.Informant: Patient, Reported on 11/25/2023 Lancets Use to test blood sugars up to three times a day 200 Each 1 4 Active Additional Information Patient not taking.Informant: Patient, [...] Active OneTouch Ultra In Vitro Strip (Glucose Blood)Indicatio ns:Type 2 diabetes, HbA1C goal < 8% ([facility]) TEST BLOOD SUGAR 3 TIMES DAILY DX E11.9 300 Strip 1 4 Active Amiodarone HCl 200 MG Oral Tablet (Cordarone)Alejandra cations: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 90 Tablet 3 4 Active Fluticasone Furoate-Vilante rol 200-25 MCG/ACT Inhalation Aerosol Powder Breath Activated (BREO ellipta) Inhale 1 Puff by mouth in the morning. 60 Blister Dosing Unit 11 4 Active documented as of this encounter (statuses as of 02/06/2024) Active Problems Problem Noted Date Diagnosed Date [...] disease) 011 HTN, goal below 150/90 04/23/2009 Overview (04/23/2009): Per HTN Taxonomy. DYSLIPIDEMIA, GOAL LDL BELOW 100 03/10/2009 Overview (03/10/2009): Per Lipid Taxonomy. Other psoriasis and similar disorders 04/12/2005 CERVICAL DISC DEGEN 11/22/2003 GENERAL OSTEOARTHROSIS 09/06/2001 Adrenal adenoma Overview (12/07/2013): left documented as of this encounter (statuses as of 02/06/2024) Resolved Problems Problem Noted Date Diagnosed Date [...] 35.0 to 39.9 with serious comorbidity 06/23/2009 Overview (01/11/2018): Per Obesity Taxonomy ICD-10 update of inactive diagnosis Type 2 diabetes mellitus wit h hemoglobin A1c goal of less than 7.0% 01/09/2009 03/24/2011 Overview (07/22/2015): Modified per Diabetes protocol #14. ICD-10 update of inactive term Kidney disease, chronic, sta ge IV (GFR 15-29 ml/min) 11/06/2008 01/28/2014 Overview (11/06/2008): Modified by CKD Protocol #1. Mixed dyslipidemia 05/03/2007 9 Overview (03/10/2009): Per Lipid Taxonomy. BENIGN NEOPLASM LG BOWEL 02/02/200605/2017 Overview (02/02/2006): Colonoscopy 01/31/06--hyperplastic polyp--repeat 10 years ADVANCE DIRECTIVE INFORMATION 04/12/2005 01/30/2024 Overview (04/12/2005): No, Advance Directive brochure given to patient at prior appointment. DIAB RENAL MANIF ADULT 04/12/200512/28 Renal failure 04/12/2005 11/06/2008 Overview (11/06/2008): Modified by CKD Protocol #1. 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 Cramp in limb 09/06/2001 02/24/2015 CHRONIC AIRWAY OBSTRUCTION NEC 09/20/2000 02/24/2015 Other and unspecified noninf ectious gastroenteritis and colitis(558.9) 02/24 Other specified urticaria Headache 02/24/2015 Overview (06/18/2015): ICD-10 update of inactive term Sialoadenitis 02/24/2015 Polyp of nasal cavity 2017 OBESITY, UNSPECIFIED 010 Overview (06/23/2009): Per Obesity Taxonomy HTN, goal below 140/90 04/23 Overview (04/23/2009): Per HTN Taxonomy. Medial epicondylitis 015 Renal cyst 12/07/2013 Tobacco use disorder 018 documented as of this encounter (statuses as of 02/06/2024) Immunizations Name Administration Dates Next Due COVID-19 mRNA, LNP-s, No Pre serve, 2-Dose Series (Pfizer) 02/12/2021,05/22/2020,05/01/2020 COVID-19, mRNA, LNP-s, PF, B ooster, [...] Dr. 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 Answer Date of Assessment Author No 07/01/2017 5:13 PM Parth Garza RN * Are you blind or do you have serious difficulty seeing, even when wearing glasses? Answer Date of Assessment Author Yes 07/01/2017 5:13 PM Parth Garza RN * Do you have serious difficulty walking or climbing stairs? (5 years old or older) Answer Date of Assessment Author No 07/01/2017 5:13 PM Parth Garza RN * Do you have difficulty dressing or bathing? (5 years old or older) Answer Date of Assessment Author No 07/01/2017 5:13 PM Parth Garza RN * Because of a physical, mental, or emotional condition, do you have difficulty doing errands alone such as visiting a doctors office or shopping? (15 years old or older) Answer Date of Assessment Author Yes 07/01/2017 5:13 PM Parth Garza RN documented as of this encounter Mental Status * Because of a physical, mental, or emotional condition, do you have serious difficulty concentrating, remembering, or making decisions? (5 years old or older) Answer Entry Date Author Yes 07/01/2017 5:13 PM EDT Parth Perry RN documented in this encounter Miscellaneous Notes * Telephone Encounter - Dave Elizabeth OSA - 02/06/2024 9:32 AM EST LM for patient to call back to verify appt. * Telephone Encounter - Dave Elizabeth OSA - 02/02/2024 1:49 PM EST Called patient, LM that I do have an appt on 03/27 and that [facility] [place] [facility] * Telephone Encounter - Dave Elizabeth OSA - 02/01/2024 3:32 PM EST Patient is scheduled in [facility] on: RETURN CARDIOLOGY at 1:30 PM (30 min)Arrive by 1:15 PM Wednesday March 27, 2024 Appointment Provider:Stevo Velasquez PA-C in CARDIOLOGY [facility] Will call again tomorrow. * Telephone Encounter [...] another patient on to my schedule in [place]. My recommendation would be to watch for a cancellation or look for an opening with another provider that meets patient'scriteria for an appointment due to dialysis schedule. Stevo Velasquez PA-C Department of Cardiology * Telephone Encounter - Dave Elizabeth OSA - 01/30/2024 10:16 AM EST Christin, and Stevo, I will setup an appt at [facility], however, there is no openings as of now. Do you two have a day and time that I can ovverride an appointment for [facility]. Please advise, thank you. * Telephone Encounter - Christin Mahoney PA-C - 01/26/2024 2:06 PM EDT Patient admitted with near syncopal episode with dialysis. Likely discharged in the next 1-2 days She needs 2 week ZIO arranged upon discharge. Order placed. Also arrange hosp f/u in [place] with Eva or Denzel after ZIO results available. Needs Tues/Thurs in the afternoon due to dialysis sessions documented in this encounter Plan of Treatment Upcoming Encounters Date Type Department Care Team (Late st Contact Info) Description 02/08/2024 9:45 AM EST Scheduled Telephone [facility], [facility] [address] [facility] [place] [address] Yanci Odonnell, [address] [place] [address] 03/27/2024 1:30 PM EST Office Visit Cardiology [address] [place] [address] Stevo Velasquez PA-C [address] [place] [address] 04/06/2024 12:20 PM EST Office Visit Family Medicine [address] [phone] Nadiya Blackwell PA-C [address] [place] [address] [place] [address] 10/19/2024 1:40 PM EDT Office Visit Family [address] [phone] Noam Armando MD [address] [place] [address] [place] [address] Scheduled Orders Name Type Priority Associated Diagnoses Orde r Schedule EXTERNAL EKG 8 TO 15 DAYS Holter Routine Paroxysmal atrial fibrillation (HCC) Bradycardia, sinus Near syncope Expected: 01/26/2024 (Approximate), Expires: 01/25/2025 Health Maintenance Due Date Last Done Comments DISCUSS TOBACCO CESSATION (REFER TO SMARTSET #9722) 1945 Alpha-1 Antitrypsin 1963 Adult Wellness Visit 2013 Zoster Vaccines (2 of 3) 03/06/2013 01/09/2013 *ADVANCE DIRECTIVE NOT ON FILE 05/11/2019 Diabetic Foot Exam 04/27/2020 04/27/2019, 1 , 03/14/2017, Additional history exists DTap/Tdap Vaccines (3 - Td or Tdap) 08/04/2020 08/04/2010, 08/04/2010 Depression Screening 11/08/2020 11/09/2019 COVID-19 Vaccine ( season) 2023 01/07/2022, 08/04/2021, 02/12/2021, Additional history exists HbA1c 04/05/2024 10/04/2023, 07/0 [...] YRS AGES 18-100 Discontinued 08/27/2020, 05/21/2015, 01/31/2006 Influenza Vaccine (FLU shot) Completed 01/17/2024, 01/04/2023, 12/15/2021, Additional history exists Cologuard Discontinued HPV (Gardasil) Vaccine Aged Out No lo nger eligible based on patient's age to complete this topic MENINGOCOCCAL (MENACTRA/MENVEO) Aged Out No longer eligible based on patient's age to complete this topic Sigmoidoscopy Discontinued documented as of this encounter Medical Devices Implanted Type Area Cnc Service Engineer Device Identifier Shelf Expiration Date Model / Serial / Lot [employer]_Vortx Lizzette - 18_5 Mm X 5.5 Mm Implanted:Qty: 1 on 07/01/2017 by Harsha Vázquez MD at RADIOLOGY [facility] N/A: Abdomen [employer] : INTRV RAD 08/10/2019 [id number] 50 / [id number] / [id number] Description:VortX Lizzette - 18 ([employer]). 5 mm x 5.5 mm. GTIN: [id number]. Ref: [id number]. Lot: [id number]. Exp: 08/10/2019 [employer]_Tornado Embolization Microcoil_4/2 Implanted:Qty: 2 on 07/01/2017 by Harsha Vázquez MD at RADIOLOGY [facility] N/A: Abdomen COOK : INTRV RAD 09/06/2021 [id number] / MWCE-18S- 4-TORNA DO / [id number] Description:Tornado Emboliza tion Microcoil ([employer]). Ref: [id number]-18S-4/-TORNADO. Ref: [id number]. Lot: [id number]. Exp: 09/06/2021. [employer]_Vortx Lizzette - 18_5 Mm X 5.5 Mm Implanted:Qty: 4 on 07/01/2017 by Harsha Vázquez MD at RADIOLOGY [facility] N/A: Abdomen [employer] : INTRV RAD 07/25/2018 [id number] 50 / [id number] / [id number] Description:VortX Lizzette - 18 ([employer]). 5 mm x 5.5 mm. GTIN: [id number]. Ref: [id number]. Lot: [id number]. Exp: 07/25/2018 [employer]_Tornado Embolization Microcoil_7/3 Implanted:Qty: 2 on 07/01/2017 by Harsha Vázquez MD at RADIOLOGY [facility] N/A: Abdomen COOK : INTRV RAD 09/09/2021 [id number] / MWCE-18S- 7/-TORNA DO / [id number] Description:Tornado Emboliza tion Microcoil ([employer]). Ref: [id number]-18S-7/-TORNADO. Ref: [id number]. Lot: [id number]. Exp: 09/09/2021. documented as of this encounter [...] Directives occurred with: Not Discussed Care Teams Federal Air Marshal Relationship Specialty Start Date End Date Noam Armando MD [address] [place] [address] [place] [address] PCP - General Family Medicine 08/10/18 documented as of this encounter
--- OUTSIDE RECORDS SUMMARY | 2024-02-08 00:56 | External Medical Summary ---
Author Name Unknown Address Unknown Organization K01:LABORATORY [facility] - [address] [place] [address] Laboratory Report Ordering Provider Test Date Status ALONSOSERENA 01/31/2024 10:20:01 Final Observation Date Value Abnormality Reference (Units ) Status Iron 01/31/2024 10:20:01 28 Below low normal 33-151 (ug/dL) Final Iron-binding capacity 01/31/2024 10:20:01 147 Below low normal 250-425 (ug/dL) Final Transferrin Sat % 01/31/2024 10:20:01 19 15-55 (%) Final Performing Location LABORATORY [facility] - [address] [place] [address]
--- OUTSIDE RECORDS SUMMARY | 2024-02-08 00:56 | External Medical Summary ---
Author Name Unknown Address Unknown Organization K09:[facility] [place] [address] Laboratory Report Ordering Provider Test Date Status SERENA GUPTA 01/31/2024 10:20:01 Final Observation Date Value Abnormality Reference (Units ) Status Albumin 01/31/2024 10:20:01 3.2 Below low normal 3.8 -5.0 (g/dL) Final Performing Location [facility] [place] [address]
--- OUTSIDE RECORDS SUMMARY | 2024-02-08 00:56 | External Medical Summary | Summary of Care ---
Author Name Unknown Organization [facility] Address [address] [address] Phone [phone] Care Team Providers Care Rib Sawyer Name Role Phone Noam Armando MD Primary Care Provide r Reason for Visit * Reason Onset Date Comments [facility]: Maintenance 01/31/2024 Encounter Details Date Type Department Care Team (Late st Contact Info) Description 01/31/2024 Telephone [facility], [facility] [address] [facility] [place] [address] Zulay Noland, HOOP BENDER TANK [address] [facility] [address] [facility]: Maintenance Allergies Active Allergy Reactions Criticality Noted Date Comments Chlorhexidine Itching Medium 01/03/2019 documented as of this encounter (statuses as of 01/31/2024) Medications Medication Sig Dispensed Refills Start Date End Date Status PROCRIT 43546 UNIT/ML IJ SOLN Per dialysis clinic Active [...] (3) MG/3ML Inhalation Solution (Duoneb)Indicatio ns:COPD, moderate ([facility]) INHALE 1 UNIT DOSE VIA NEBULIZER 4 TIMES A DAY NEEDED. DX: J44.9 (PATIENT CURRENTLY USING 1-2 TIMES PER DAY.) 360 mL 5 04/18/2023 Active Lidocaine 5 % External Patch (Lidoderm) Place 1 Patch over 12 hours topically on the skin daily. Apply to affected area 30 Patch 05/30/2023 Active Additional Information Patient not taking.Informant: Patient, Reported on 11/25/2023 Invisible Mini w/Device KitIndications:Ty pe 2 diabetes, HbA1C goal < 8% ([facility]) test blood sugar up to 3 times [...] of dialysis 3 times a week Active OneAneumeduch Ultra In Vitro Strip (Glucose Blood)Indications :Type 2 diabetes, HbA1C goal < 8% ([facility]) TEST BLOOD SUGAR 3 TIMES DAILY DX E11.9 300 Strip 1 10/04/2023 Active Amiodarone HCl 200 MG Oral Tablet (Cordarone)Indica tions:Hypertensiv e heart and kidney disease with chronic diastolic congestive heart failure and stage 5 chronic kidney disease on chronic dialysis ([facility]) Take 1 Tablet by mouth in the [...] mRNA, LNP-s, No Pre serve, 2-Dose Series ([employer]) 02/12/2021,05/22/2020,05/01/2020 COVID-19, mRNA, LNP-s, PF, B ooster, [...] Dr. Jose Rafael Rocha, patient recieves from [facility] at home nurse later in season),12/15/2021,12/30/2020 Seasonal [...] encounter Miscellaneous Notes * Telephone Encounter - Zulay Noland LPN - 01/31/2024 9:17 AM EST Patient discharged from [facility] to [facility] IP rehab Adding to Yanci Odonnell's schedule for 1 week follow up call FYI care team documented in this encounter Plan of Treatment Upcoming Encounters Date Type Department Care Team (Late st Contact Info) Description 02/03/2024 4:00 PM EST Home Visit [place] at [place], [facility] [address] [place] [address] Elly Honeycutt RN [address] [place] [address] 02/08/2024 9:45 AM EST Scheduled Telephone [facility], [facility] [address] [facility] [place] [address] Yanci Odonnell, [address] [place] [address] 04/06/2024 12:20 PM EST Office Visit [address] [phone] Nadiya Blackwell PA-C [address] [place] [address] [place] [address] 10/19/2024 1:40 PM EDT Office Visit [address] [phone] Noam Armando MD [address] [place] [address] [place] [address] Health Maintenance Due Date Last Done Comments DISCUSS TOBACCO CESSATION (REFER TO SMARTSET #0432) 1945 Alpha-1 Antitrypsin 1965 Adult Wellness Visit [...] 12/30/2020, Additional history exists HbA1c 04/05/2024 10/04/2023, 0709/2022, 04/22/2021, Additional history exists Diabetic Eye Exam [...] this encounter Medical Devices Implanted Type Area Insurance Healthcare Representative Device Identifier Shelf Expiration Date Model / Serial / Lot [employer]_Vortx Lizzette - 18_5 Mm X 5.5 Mm Implanted:Qty: 1 on 07/01/2017 by Harsha Vázquez MD [place] [facility] [place] Abdomen [employer] : INTRV RAD 08/10/2019 [id number] / [id number] / [id number] Description:VortX Lizzette - 18 ([employer]). 5 mm x 5.5 mm. GTIN: [id number]. Ref: [id number]. Lot: [id number]. Exp: 08/10/2019 [employer] Medical_Tornado Embolization Microcoil_4/2 Implanted:Qty: 2 on 07/01/2017 by Harsha Vázquez MD at [facility] [place]: Abdomen COOK : INTRV RAD 09/06/2021 [id number] / MWCE-18S- /2-TORNA DO / [id number] Description:Tornado Emboliza tion Microcoil (Inotrem). Ref: [id number]-18S-4/2-TORDANYELLE. Ref: [id number]. Lot: [id number]. Exp: 09/06/2021. [employer]_Vortx Lizzette - 18_5 Mm X 5.5 Mm Implanted:Qty: 4 on 07/01/2017 by Harsha Vázquez MD [place] [facility] [place]: Abdomen [employer] : INTRV RAD 07/25/2018 [id number] 50 / [id number] / [id number] Description:VortX Lizzette - 18 ([employer]). 5 mm x 5.5 mm. GTIN: [id number]. Ref: [id number]. Lot: [id number]. Exp: 07/25/2018 [employer]_Tornado Embolization Microcoil_7/3 Implanted:Qty: 2 on 07/01/2017 by Harsha Vázquez MD at [facility] [place]: Abdomen COOK : INTRV RAD 09/09/2021 [id number] / MWCE-18S- 7/3-TORNA DO / [id number] Description:Tornado Emboliza tion Microcoil (Inotrem). Ref: MWCE-18S-7/3-TORNADO. Ref: [id number]. Lot: [id number]. Exp: 09/09/2021. documented as of this encounter Advance Directives [...] Directives occurred with: Not Discussed Care Teams Rib Sawyer Relationship Specialty Start Date End Date Noam Armando MD [address] [place] [address] [place] [address] PCP - General Family Medicine 08/10/18 documented as of this encounter
--- OUTSIDE RECORDS SUMMARY | 2024-02-08 00:56 | External Medical Summary ---
Author Name Unknown Address Unknown Organization K09:[facility] [place] [id number] Laboratory Report Ordering Provider Test Date Status SERENA GUPTA 01/31/2024 10:20:01 Final Observation Date Value Abnormality Reference (Units ) Status Phosphate 01/31/2024 10:20:01 5.9 Above high normal 2. 5-4.8 (mg/dL) Final Performing Location [facility] [place] [address]
--- OUTSIDE RECORDS SUMMARY | 2024-02-08 00:56 | External Medical Summary ---
Author Name Unknown Address Unknown Organization K09:[facility] [place] [address] Laboratory Report Ordering Provider Test Date Status SERENA GUPTA 01/31/2024 10:20:01 Final Observation Date Value Abnormality Reference (Units ) Status WBC, Total 01/31/2024 10:20:01 12.56 Above high normal 4 .00-10.80 (K/uL) Final RBC 01/31/2024 10:20:01 2.84 3.85-5.15 (M/uL) Final Hemoglobin 01/31/2024 10:20:01 11.2 Below low normal 12 .0-15.3 (g/dL) Final HCT 01/31/2024 10:20:01 34.7 Below low normal 36. 0-45.2 (%) Final MCV 01/31/2024 10:20:01 122.2 81.5-97.5 (fL) Final MCH 01/31/2024 10:20:01 39.4 27.0-34.0 (pg) Final MCHC 01/31/2024 10:20:01 32.3 32.0-36.0 (g/dL) Final RDW 01/31/2024 10:20:01 13.3 11.5-15.5 (%) Final Platelets 01/31/2024 10:20:01 127 Below low normal 140 -400 (K/uL) Final MPV 01/31/2024 10:20:01 12.7 6.6-11.1 ( fL) Final Performing Location [facility] [place] [place] [address]
--- OUTSIDE RECORDS SUMMARY | 2024-02-08 00:56 | External Medical Summary ---
Author Name Unknown Address Unknown Organization K01:[facility] [place] - [address] [facility] [address] Laboratory Report Ordering Provider Test Date Status ALONSOSERENA 01/31/2024 10:20:01 Final Observation Date Value Abnormality Reference (Units ) Status Ferritin 01/31/2024 10:20:01 1761 Above high normal 13 -150 (ng/mL) Final Postmenopausal women have hi gher ferritin levels than pre-menopausal women. The above reference interval is based on pre-menopausal women. Performing Location [facility] [place] - [address] [facility] [address]
--- OUTSIDE RECORDS SUMMARY | 2024-02-08 00:56 | External Medical Summary ---
Author Name Unknown Address Unknown Organization K09:[facility] [place] [address] Laboratory Report Ordering Provider Test Date Status SERENA GUPTA 01/31/2024 10:20:01 Final Observation Date Value Abnormality Reference (Units ) Status BUN 01/31/2024 10:20:01 49 Above high normal 6-20 (mg/dL) Final Creatinine 01/31/2024 10:20:01 8.8 Above high normal 0.5-1.0 (mg/dL) Final Glomerular filtration rate/1.73 sq M.predicted [Volume Rate/Area] in Serum, Plasma or Blood by Creatinine-based formula (CKD-EPI) 01/31/2024 10:20:01 4 Below low normal >=60 (mL/min) Final eGFR is calculated based on the CKD-EPI 2020 equation. Sodium 01/31/2024 10:20:01 142 135-146 (m mol/L) Final Potassium 01/31/2024 10:20:01 3.9 3.5-5.1 (m mol/L) Final Cl 01/31/2024 10:20:01 99 98-107 (mm ol/L) Final CO2 01/31/2024 10:20:01 23 22-32 (mmo l/L) Final Anion gap 01/31/2024 10:20:01 20 Above high normal 7- 15 (mmol/L) Final Glucose 01/31/2024 10:20:01 68 Below low normal 70- 120 (mg/dL) Final Calcium 01/31/2024 10:20:01 9.2 8.4-10.2 ( mg/dL) Final Performing Location [facility] [place] [place] [address]
--- OUTSIDE RECORDS SUMMARY | 2024-02-08 00:56 | External Medical Summary | Summary of Care ---
Author Name Unknown Organization [facility] Address [address] [facility] [place] [address] Phone [phone] Care Team Providers Care Quality Internship Name Role Phone Noam Armando MD Primary Care Provide r Encounter Details Date Type Department Care Team (Late st Contact Info) Description 01/26/2024 Telephone Cardiology, [facility] [address] [place] [address] Christin Mahoney PA-C [address] [place] [address] Allergies Active Allergy Reactions Criticality Noted Date Comments Chlorhexidine Itching Medium 01/03/2019 documented as of this encounter (statuses as of 01/30/2024) Medications Medication Sig Dispensed Refills Start Date End Date Status PROCRIT 31431 UNIT/ML IJ SOLN Per dialysis clinic Active [...] (3) MG/3ML Inhalation Solution (Duoneb)Indicatio ns:COPD, moderate ([facility]) INHALE 1 UNIT DOSE VIA NEBULIZER 4 TIMES A DAY NEEDED. DX: J44.9 (PATIENT CURRENTLY USING 1-2 TIMES PER DAY.) 360 mL 5 04/18/2023 Active Lidocaine 5 % External Patch (Lidoderm) Place 1 Patch over 12 hours topically on the skin daily. Apply to affected area 30 Patch 05/30/2023 Active Additional Information Patient not taking.Informant: Patient, Reported on 11/25/2023 Lifestander Mini w/Device KitIndications:Ty pe 2 diabetes, HbA1C goal < 8% ([facility]) test blood sugar up to 3 [...] of dialysis 3 times a week Active [employer] Ultra In Vitro Strip (Glucose Blood)Indications :Type 2 diabetes, HbA1C goal < 8% ([facility]) TEST BLOOD SUGAR 3 TIMES DAILY DX E11.9 300 Strip 1 10/04/2023 Active Amiodarone HCl 200 MG Oral Tablet (Cordarone)Indica tions:Hypertensiv e heart and kidney disease with chronic diastolic congestive heart failure and stage 5 chronic kidney disease on chronic dialysis ([facility]) Take 1 Tablet by mouth in the morning. 90 Tablet 3 10/18/2023 Active Fluticasone Furoate-Vilantero l 200-25 MCG/ACT Inhalation Aerosol Powder Breath Activated (BREO ellipta) Inhale 1 Puff by mouth in the morning. 60 Blister Dosing Unit 11 01/02/2024 Active documented as of this encounter (statuses as of 01/30/2024) Active Problems Problem Noted Date Diagnosed Date [...] as of this encounter (statuses as of 01/30/2024) Resolved Problems Problem Noted Date Diagnosed Date [...] as of this encounter (statuses as of 01/30/2024) Immunizations Name Administration Dates Next Due COVID-19 mRNA, LNP-s, No Pre serve, 2-Dose Series (Learnmetrics) 02/12/2021,05/22/2020,05/01/2020 COVID-19, mRNA, LNP-s, PF, B ooster, 100mcg/0.5mg (Moderna) 08/04/2021 Covid-19, Mrna, Lnp-s, Pf, B ivalent, 50 Mcg, IM, 12 yrs and above (Moderna) 01/07/2022 Hepatitis B, 20+ yrs 11/08/2017,07/13/19 18,06/07/2017,05/10,08/14/2015,05/15/2015,04/10/2015 Pneumococcal Conjugate Vacc, 13 Valent (Prevnar) 02/24/2015 Pneumococcal Polysaccharide PPV23 (Pneumovax) 09/04/2012,08/24/2005 Seasonal Influenza Vac., MDV , IM, 0.5 mL (Fluzone) 12/26/2014,01/09/2014,01/08/2013,01/19,01/12/2011,01/27/2010,12/05/2008 ,02/24/2007 Seasonal Influenza Virus Vac cine, Unspecified Formulation 12/13/2018,12/14/2017,01/21/2016,01/09,01/08/2013,01/20/2012,01/12/2011 ,01/27/2010,12/05/2008,02/24/2007,11/07/2003,01/31/2003,02/21/2002 Seasonal Influenza, High Dos e, Trivalent, PF, IM (Fluzone HD) 01/17/2020 Seasonal Influenza, PF, 6 M & above, IM , (FluLaval or Fluzone) 12/21/2016 Seasonal Influenza, Quadriva lent Hd (Fluzone Hd) 12/03/2022(Deferred: Patient Refused - Dr. Jose Rafael Rocha, patient recieves from [facility] at home nurse later in season),12/15/2021,12/30/2020 Seasonal [...] encounter Miscellaneous Notes * Telephone Encounter - Christin Mahoney PA-C - 01/30/2024 5:01 PM EST I also don't have any openings. Can watch for cancellations or offer Abhijeet Miner if she is willing * Telephone Encounter - Stevo Velasquez PA-C - 01/30/2024 4:44 PM EST I do not see anywhere to add another patient on to my schedule in [place]. My recommendation would be to watch for a cancellation or look for an opening with another provider that meets patient'scriteria for an appointment due to dialysis schedule. Stevo Velasquez PA-C Department of Cardiology * Telephone Encounter - Dave Elizabeth OSA - 01/30/2024 10:16 AM EST Christin, and Stevo, I will setup an appt at [facility], however, there is no openings as of now. Do you two have a day and time that I can ovverride an appointment for [facility]. Please advise, thank you. * Telephone Encounter - Christin Mahoney PA-C - 01/26/2024 2:06 PM EDT Patient admitted with near syncopal episode with dialysis. Likely discharged in the next 1-2 days She needs 2 week ZIO arranged upon discharge. Order placed. Also arrange hosp f/u in [place] with Eva or Denzel after ZIO results available. Needs Tues/Thurs in the afternoon due to dialysis sessions documented in this encounter Plan of Treatment Upcoming Encounters Date Type Department Care Team (Late st Contact Info) Description 02/03/2024 4:00 PM EST Home Visit [facility] at [facility] [address] [place] [address] Elly Honeycutt, MICHELLE [address] [facility] [place] [address] 04/06/2024 12:20 PM EST Office Visit [address] [place] [phone] Nadiya Blackwell PA-C [address] [place] [address] [place] [address] 10/19/2024 1:40 PM EDT Office Visit Family [address] [place] [phone] Noam Armando MD [address] [place] [address] [place] [address] Scheduled Orders Name Type Priority Associated Diagnoses Orde r Schedule EXTERNAL EKG 8 TO 15 DAYS Holter Routine Paroxysmal atrial fibrillation (HCC) Bradycardia, sinus Near syncope Expected: 01/26/2024 (Approximate), Expires: 01/25/2025 Health Maintenance Due Date Last Done Comments DISCUSS TOBACCO CESSATION (REFER TO SMARTSET #0527) 1945 Alpha-1 Antitrypsin 1965 Adult Wellness Visit [...] this encounter Medical Devices Implanted Type Area Coater Smoking Pipe Device Identifier Shelf Expiration Date Model / Serial / Lot [employer]_Vortx Lizzette - 18_5 Mm X 5.5 Mm Implanted:Qty: 1 on 07/01/2017 by Harsha Vázquez MD at [facility] [place]/A: Abdomen [employer] : INTRV RAD 08/10/2019 [id number] 50 / [id number] / [id number] Description:VortX Lizzette - 18 ([employer]). 5 mm x 5.5 mm. GTIN: [id number]. Ref: [id number]. Lot: [id number]. Exp: 08/10/2019 [employer] Medical_Tornado Embolization Microcoil_4/2 Implanted:Qty: 2 on 07/01/2017 by Harsha Vázquez MD at [facility] [place] N/A: Abdomen COOK : INTRV RAD 09/06/2021 [id number] / MWCE-18S- 4/2-TORNA DO / [id number] Description:Tornado Emboliza tion Microcoil (Sportomato). Ref: MWCE-18S-4/2-TORNADO. Ref: [id number]. Lot: [id number]. Exp: 09/06/2021. [employer]_Vortx Lizzette - 18_5 Mm X 5.5 Mm Implanted:Qty: 4 on 07/01/2017 by Harsha Vázquez MD at [facility] [place] N/A: Abdomen [employer] : INTRV RAD 07/25/2018 [id number] 50 / [id number] / [id number] Description:VortX Lizzette - 18 ([employer]). 5 mm x 5.5 mm. GTIN: [id number]. Ref: [id number]. Lot: [id number]. Exp: 07/25/2018 [employer] Medical_Tornado Embolization Microcoil_7/3 Implanted:Qty: 2 on 07/01/2017 by Harsha Vázquez MD at [facility] [place] N/A: Abdomen COOK : INTRV RAD 09/09/2021 [id number] / MWCE-18S- 7/-TORSHANIA DO / [id number] Description:Tornado Emboliza tion Microcoil ([employer]om[employer]). Ref: MWCE-18S-7/3-JUAN ANTONIO. Ref: [id number]. Lot: [id number]. Exp: 09/09/2021. documented as of this encounter [...] Directives occurred with: Not Discussed Care Teams Quality Internship Relationship Specialty Start Date End Date Noam Armando MD [address] [place] [address] [place] [address] PCP - General Family Medicine 08/10/18 documented as of this encounter
[2024-02-08] MEDS: PIPERACILLIN/TAZOBACTAM 4.5 GM/100 ML BAG IV SCH (02:40)
[2024-02-08 06:33] LABS: Hematocrit (blood only) 31.7 % (37.0-47.0); Hemoglobin 10.5 g/dl (12.0-16.0); Mean Corpuscular Hemoglobin 37.9 pg (25.0-34.0); Mean Corpuscular Hgb Conc 33.1 g/dL (32.0-36.0); Mean Corpuscular Volume 114.4 fL (80.0-100.0); Mean Platelet Volume 11.4 fL (9.4-12.4); Platelet Count 154 K/uL (130-400); RDW Coefficient of Variation 12.9 % (11.5-14.5); RDW Standard Deviation 54.4 fL (36.4-46.3); Red Blood Count 2.77 M/uL (4.20-5.40); White Blood Count 30.53 K/ul (4.8-10.8)
[2024-02-08 06:36] LABS: Basophils # (auto) 0.09 K/uL (0.00-0.20); Basophils % (auto) 0.3 %; Eosinophils # (auto) 0.01 K/uL (0.00-0.50); Immature Granulocytes # (auto) 0.35 K/uL (0.01-0.20); Immature Granulocytes % (auto) 1.1 %; Monocytes # (auto) 1.22 K/uL (0.11-0.59); Neutrophils # (auto) 28.26 K/uL (1.40-6.50); Neutrophils % (auto) 92.6 %
--- NOTE | 2024-02-08 06:41 | Communication Note ---
Date of Service: February 08, 2024 Notified by RN of worsening leukocytosis on a.m. blood work WBC 30 from 27 yesterday. Stool C. difficile sample still needs to be collected. IV Flagyl 1 dose now for presumptive C. difficile given leukocytosis
[2024-02-08 06:54] LABS: Albumin Globulin Ratio 1.1 (0.9-2); Bilirubin,Total 0.6 mg/dl (0.2-1.0); Calcium 8.8 mg/dl (8.6-10.3); Creatinine Clr Calc Pharmacy 6.5 ml/min; Globulin 2.8 gm/dl (2.5-4.0); Magnesium 1.6 mg/dl (1.7-2.4); Phosphorus 6.3 mg/dl (2.5-4.9); Potassium 4.2 mmol/L (3.5-5.1); Total Protein 5.8 gm/dl (6.0-8.3)
[2024-02-08] MEDS: FLUTICASONE/VILANTEROL 200/25MCG 14 PUFFS/INHALER INH SCH (08:27)
[2024-02-08] MEDS: NEPHROCAPS PO SCH (08:28)
[2024-02-08] MEDS: ADVANCED PROBIOTIC 625 MG CAPSULE PO SCH (08:28)
[2024-02-08] MEDS: metroNIDAZOLE 500 MG/100 ML BAG IV STA (08:28)
[2024-02-08] MEDS: AMIODARONE 200 MG TAB PO SCH (08:29)
[2024-02-08] MEDS ORDERED: HYDROmorphone INJ 0.5 MG/0.5 ML SYR IV PRN (10:03)
--- NOTE | 2024-02-08 10:07 | Nephrology Consultation ---
Date of Consultation February 08, 2024 Assessment & Plan (1) ESRD on hemodialysis: Long standing ESRD patient with Anuria. mejía a good Left UE AVF which will be used. Currently appears to be vol depleted from Acute GI issues and poor Appetite. very high WBC. So potential for needing Surgery also--No heparin today. hgb 10+ --so no EPO today. No need of UF today. In fact Will continue the gentle hydration for today while She is NPO. d5nss at 60/hr. Hold NOn critical Med given NPO. Hold renvela. (2) Diverticulitis of small bowel: Reason for Admission. has Sig symptoms and very very high WBC at 31K. On PO Vanco and flagyl and Ceftraizxone. All abx Can be continued. Plan Time spent 45 mins History of Present Illness Reason for Consultation: ESRD on HD--MWF admitted with Diverticulitis. Attending Physician: Aziza Frederick MD History of Present Illness 78/F with ESRD on HD--TTS outpt but currently MWF at [facility] now admitted with Diverticulitis. She has chronic hypoxic respiratory failure on 3 L of O2, COPD, PAF off anticoagulation secondary to bleeding, mesenteric artery stenosis, HTN, mitral regurgitation, T2DM, hypogammaglobinemia who presented to ED from [facility] rehab because of abdominal pain. She was recently hospitalized 01/23 to 01/29 secondary to generalized weakness, presyncope and abdominal pain. She underwent echocardiogram which revealed a preserved EF at 60 to 65%, left atrium moderately dilated, moderate to severe mitral regurg. Cardiology saw the patient and it was noted she has had a long standing history of labile HTN with HD. Her lisinopril was then stopped and she continued her 3xwk midodrine. She also had abdominal pain and diarrhea throughout her hospitalization. Her stool PCR was negative for infection and C. difficile was negative as well. She was seen and evaluated by general surgery. There was concern about possible transient ischemic bowel due to hypotension versus colitis. She was started on empiric vancomycin despite negative cdiff. Her lisinopril was Discontinued due to lower blood pressure. She was discharged to [facility] rehab on 01/29. For the last few days her abd pain has been getting worse and eating makes it worse. She has been having n/v and diarrhea. She denies melena or hematochezia. She does not make any urine. She denies f/c/s, chest pain. She is chronically SOB. In ED pt was found to have leukocytosis with wbc 27k. CT a/p concerning for SB diverticulitis. Today is her dialysis Day. BP is somewhat low now. No resp Distress. Last Dialysis was tuesday at rehab. ROS--12 Systems otherwise negative Physical Exam Physical Exam: Gen: Elderly female , weak and tired. barely answered. chronically ill . AAo x 3 Lung: Clear. Heart: RRR nml s1/s2, LUE AV Fistula +thrill noted Abd: soft, significantly tender to minimal palpation, Ext: no edema, Skin: no rash, warm, dry Allergies Allergy/AdvReac Type Severity Reaction Status Date / Time chlorhexidine Allergy Intermediate ITCHING Verified 05/24/23 14:59 Home Medications Medication Instructions Recorded Confirmed Type ipratropium 0.5 mg-albuterol 3 mg 3 ml inhalation QID PRN Shortness 09/26/18 02/07/24 History (2.5 mg base)/3 mL nebulization Of Breath soln vitamin B complex-vitamin C-folic 1 tab PO QAM 09/26/18 02/07/24 History acid 0.8 mg tablet (Arabella-Tika) fluticasone propionate 50 2 spray intranasal HS 01/18/19 02/07/24 History mcg/actuation nasal spray,suspension albuterol sulfate 90 mcg/actuation 2 puff inhalation Q4H PRN Wheezing 04/05/19 02/07/24 History aerosol inhaler acetaminophen 325 mg tablet 650 mg PO Q6H PRN Pain 04/14/21 02/07/24 History (Tylenol) camphor-menthol 0.5 %-0.5 % lotion 1 applic topical DIRECTED PRN 04/14/21 02/07/24 History Itching epoetin gabriel 10,000 unit/mL 0 unit IV DIRECTED 04/14/21 02/07/24 History injection solution (Procrit) lidocaine-prilocaine 2.5 %-2.5 % 1 applic topical DIRECTED PRN 04/14/21 02/07/24 History topical cream PRIOR TO DIALYSIS loperamide 2 mg capsule (Imodium 2 mg PO QID PRN Diarrhea 04/14/21 02/07/24 History A-D) valacyclovir 1 gram tablet 1,000 mg PO QAM 04/14/21 02/07/24 History fluorometholone 0.1 % eye 1 drp OPL QAM 01/25/22 02/07/24 History drops,suspension amiodarone 200 mg tablet 200 mg PO DAILY 30 days #60 tabs 05/12/22 02/07/24 Rx docusate sodium 100 mg capsule 100 mg PO BID PRN Constipation 04/01/23 02/07/24 History (Colace) fluticasone furoate 200 1 inh inhalation DAILY 04/01/23 02/07/24 History mcg-vilanterol 25 mcg/dose inhalation powder (Breo Ellipta) midodrine 2.5 mg tablet 2.5 mg PO 3XWK 12/31/23 02/07/24 History lanthanum 500 mg chewable tablet 500 mg PO UD 01/24/24 02/07/24 History sevelamer carbonate 800 mg tablet 1,600 mg PO UD 01/24/24 02/07/24 History (Renvela) vancomycin 1,000 mg intravenous 250 mg PO Q6 02/07/24 02/07/24 History injection Patient History Medical History ESRD (end stage renal disease) on dialysis follows with Dr. Reed; Hillary Corley Sat - [facility] (since 02/2013) On home oxygen therapy 3 LPM cont History of colon polyps Tobacco use History of GI bleed Renal cyst H/O cardiovascular stress test "05/2013 - negative for ischemia" Pancreatic cyst Obesity Psoriasis Adrenal adenoma Surgical History History of surgery AVF creation History of intestinal surgery Family History Father Myocardial infarction, Onset Age: 64 Diabetes Mother , 87 Alzheimer disease Brother Diabetes Other No family history of adverse response to anesthesia Social History Smoking Status: Current every day smoker Tobacco Type: Cigarettes Cigarettes Per Day: 3; Second Hand Exposure: Yes; Do You Dip or Chew Tobacco: No; Hx Alcohol Use: No Hx Substance Use: No Preferred Language: Kinyarwanda Communication Ability: Effective Siphoner 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 Beliefs That Will Affect Care: None marital status: / Current Living Situation: Alone current occupational status: retired How many Children do You have: 1 Feels Safe at Home: Yes Safety Concerns: Feels Safe At This Time Assistive Devices: Oxygen - Continuous and Walker Results & Data Vital Signs (Past 12 Hours) Vital Signs Temp Pulse Pulse Resp BP Pulse Ox O2 Del Method 02/08/24 07:25 36.4 C L 71 18 90/54 L 98 Room Air 02/08/24 05:48 74 02/08/24 03:52 37.0 C 74 20 95/59 L 98 Nasal Cannula 02/08/24 00:41 36.5 C 85 20 96/56 L 99 Nasal Cannula O2 Flow Rate 02/08/24 07:25 02/08/24 05:48 02/08/24 03:52 3 02/08/24 00:41 3 Laboratory Results CBC, renal Panel, CT Abdomen reviewed.
[2024-02-08] MEDS: ALBUMIN 25% 12.5 GM/50 ML VIAL IV ONE (10:44)
--- OUTSIDE RECORDS SUMMARY | 2024-02-08 10:46 | External Medical Summary | Summary of Care ---
Author Name Unknown Organization [facility] [address] [facility] [address] Phone [phone] Care Team Providers Care Sheet Metal Assembler [employer] Riveter Name Role Phone Noam Armando MD Primary Care Provide r Reason for Referral * Precert (Within 24 hrs (call dept; emergent)) - Authorized Specialty Diagnoses / Procedures Referred By Contac t Referred To Contact Radiology Diagnoses Generalized abdominal pain Procedures CT ABDOMEN W WO IV CONTRAST - WO ORAL CONTRAST Access [address] *DO NOT REMOVE THIS DEPARTMENT* [place] [address] Phone: tel: Referral ID Status Reason Start Date Expiration Date V isits Requested Visits Authorized [id number] Authorized 02/07/2024 [id number] Encounter Details Date Type Department Care Team (Late st Contact Info) Description 02/07/2024 Orders Only Access [address] *DO NOT REMOVE THIS DEPARTMENT* [place] [id number] Requisition, External Radiology [address] [place] [address] Generalized abdominal pain* Allergies Active Allergy Reactions Criticality Noted Date Comments Chlorhexidine Itching Medium 01/03/2019 documented as of this encounter (statuses as of 02/07/2024) Medications PROCRIT [id number] UNIT/ML IJ SOLN Per dialysis clinic Active [...] Patient not taking.Informant: Patient, Reported on 11/25/2023 BR Supply w/Device KitIndications: Type 2 diabetes, HbA1C goal < 8% ([facility]) test blood sugar up to 3 [...] ns:Type 2 diabetes, HbA1C goal < 8% ([facility]) TEST BLOOD SUGAR 3 TIMES DAILY DX E11.9 300 Strip 1 4 Active Amiodarone HCl 200 MG Oral Tablet (Cordarone)Alejandra cations:Hyperte nsive heart and kidney disease with chronic diastolic congestive heart failure and stage 5 chronic kidney disease on chronic dialysis ([facility]) Take 1 Tablet by mouth in the morning. 90 Tablet 3 4 Active Fluticasone Furoate-Vilante rol 200-25 MCG/ACT Inhalation Aerosol Powder Breath Activated (BREO ellipta) Inhale 1 Puff by mouth in the morning. 60 Blister Dosing Unit 11 4 Active documented as of this encounter (statuses as of 02/07/2024) Active Problems Problem Noted Date Diagnosed Date [...] as of this encounter (statuses as of 02/07/2024) Resolved Problems Problem Noted Date Diagnosed Date [...] as of this encounter (statuses as of 02/07/2024) Immunizations Name Administration Dates Next Due COVID-19 [...] Dr. 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 (15 years old or older) Answer Date of Assessment Author Yes 07/01/2017 5:13 PM EDT Parth Perry RN documented as of this encounter Mental Status * Because of a physical, mental, or emotional condition, do you have serious difficulty concentrating, remembering, or making decisions? (5 years old or older) Answer Entry Date Author Yes 07/01/2017 5:13 PM EDT Parth Perry RN documented in this encounter Plan of Treatment Upcoming Encounters Date Type Department Care Team (Late st Contact Info) Description 02/08/2024 9:45 AM EST Scheduled Telephone [facility], [facility] [address] [facility] [place] [id number] Yanci Odonnell, [address] [facility] [place] [address] 03/27/2024 1:30 PM EST Office Visit Cardiology [address] [place] [address] Stevo Velasquez PA-C [address] [place] [address] 04/06/2024 12:20 PM EST Office Visit Family Medicine [address] [place] [address] Nadiya Blackwell PA-C [address] [place] [address] [place] [address] 10/19/2024 1:40 PM EDT Office Visit Family Medicine [address] [place] [phone] Noam Armando MD [address] [place] [address] [place] [address] Scheduled Orders Name Type Priority Associated Diagnoses Orde r Schedule CT ABDOMEN W WO IV CONTRAST - WO ORAL CONTRAST Medical Imaging STAT Generalized abdominal pain Expected: 02/07/2024, Expires: 03/08/2025 Health Maintenance Due Date Last Done Comments DISCUSS TOBACCO CESSATION (REFER TO SMARTEDD #8916) 1945 Alpha-1 Antitrypsin 1965 Adult Wellness Visit [...] this encounter Medical Devices Implanted Type Area Lcsw Device Identifier Shelf Expiration Date Model / Serial / Lot [employer]_Vortx Lizzette - 18_5 Mm X 5.5 Mm Implanted:Qty: 1 on 07/01/2017 by Harsha Vázquez MD at RADIOLOGY [facility] N/A: Abdomen [employer] : INTRV RAD 08/10/2019 [id number] / [id number] / [id number] Description:VortX Lizzette - 18 ([employer]). 5 mm x 5.5 mm. GTIN: [id number]. Ref: [id number]. Lot: [id number]. Exp: 08/10/2019 [employer] Medical_Tornado Embolization Microcoil_4/2 Implanted:Qty: 2 on 07/01/2017 by Harsha Vázquez MD at RADIOLOGY [facility] N/A: Abdomen COOK : INTRV RAD 09/06/2021 [id number] / MWCE-18S- 4/-TORNA DO / [id number] Description:Tornado Emboliza tion Microcoil (Zify). Ref: [id number]-18S-4/2-TORNA. Ref: [id number]. Lot: [id number]. Exp: 09/06/2021. [employer]_Vortx Lizzette - 18_5 Mm X 5.5 Mm Implanted:Qty: 4 on 07/01/2017 by Harsha Vázquez MD at RADIOLOGY [facility] N/A: Abdomen [employer] : INTRV RAD 07/25/2018 [id number] 50 / [id number] / [id number] Description:VortX Lizzette - 18 ([employer]). 5 mm x 5.5 mm. GTIN: [id number]. Ref: [id number]. Lot: [id number]. Exp: 07/25/2018 [employer]_Tornado Embolization Microcoil_7/3 Implanted:Qty: 2 on 07/01/2017 by Harsha Vázquez MD at RADIOLOGY [facility] N/A: Abdomen COOK : INTRV RAD 09/09/2021 [id number] / MWCE-18S- 7/3-TORNA DO / [id number] Description:Tornado Emboliza tion Microcoil (Zify). Ref: [id number]-18S-7/3-JUAN ANTONIO. Ref: [id number]. Lot: [id number]. Exp: 09/09/2021. documented as of this encounter Visit Diagnoses Diagnosis Generalized abdominal pain- Primary Abdominal pain, generalized documented in this encounter Advance Directives * [...] Directives occurred with: Not Discussed Care Teams Sheet Metal Assembler And Riveter Relationship Specialty Start Date End Date Noam Armando MD [address] [place] [address] [place] [address] PCP - General Family Medicine 08/10/18 documented as of this encounter
[2024-02-08] MEDS: MIDODRINE HCL 2.5 MG TAB PO SCH (11:14)
--- NOTE | 2024-02-08 11:25 | Surgery Progress Note ---
Date of Service February 08, 2024 Assessment & Plan (1) Enterocolitis: Plan: Her CT images and results were personally viewed and interpreted by myself It is unclear exactly what is causing her abdominal pain, the area in question of her small bowel is very mildly inflamed if inflamed at all Agree with sending a C. difficile as she has had a recent infection and this could certainly cause her significant leukocytosis No plans for any surgical intervention at this time, will follow along (2) Abdominal pain: (3) Diverticulitis of small bowel: Admission and Anticipated Discharge Date Admission Date: February 07, 2024 Subjective Patient seen and examined. Still with abdominal pain. Currently getting dialysis. She states she did have previous emesis but none recently. She still having bowel movements. Afebrile. Review of Systems Constitutional: no fever and no chills Respiratory: no cough and no dyspnea Cardiovascular: no chest pain and no dyspnea on exertion Gastrointestinal: + abdominal pain; no nausea and no vomit ing Genitourinary: no dysuria and no urinary urgency Psychiatric: no behavioral changes and no depression Physical Exam Constitutional: WD/WN, vitals as above Eyes: PERRL, conjunctivae normal, anicteric sclerae Respiratory: normal respiratory effort, lungs clear to auscultation Cardiovascular: RRR, no murmur, no edema Gastrointestinal (Abdomen): Inspection/Auscultation: abdomen normal to inspection; abdomen not distended Percussion/Palpation: + abdomen tender (Generalized) and abdomen soft; no guarding and no hernia Skin: no rashes, warm and dry Psychiatric: A+Ox3, euthymic affect Results & Data Vital Signs (Past 12 Hours) Vital Signs Temp Pulse Pulse Resp BP BP Pulse Ox 02/08/24 11:00 66 90/39 L 02/08/24 10:48 68 97/36 L 02/08/24 10:44 66 59/28 L 02/08/24 10:33 68 71/27 L 02/08/24 07:25 36.4 C L 71 18 90/54 L 98 02/08/24 05:48 74 02/08/24 03:52 37.0 C 74 20 95/59 L 98 02/08/24 00:41 36.5 C 85 20 96/56 L 99 O2 Del Method O2 Flow Rate 02/08/24 11:00 02/08/24 10:48 02/08/24 10:44 02/08/24 10:33 02/08/24 07:25 Room Air 02/08/24 05:48 02/08/24 03:52 Nasal Cannula 3 02/08/24 00:41 Nasal Cannula 3 PG Care Time/CCT Total # of Minutes Spent Total Time Spent with Patient: Total time spent is greater than 50% in coordination of care (as documented) at patient's floor/unit and/or counseling patient: Coding Level of Care Code 20906 SUB INP/OBS CARE 04/21MIN Diagnoses Enterocolitis K52.9 Abdominal pain R10.9 Diverticulitis of small bowel K57.12
[2024-02-08] MEDS ORDERED: valACYclovir HCL 500 MG TABLET PO SCH (12:00)
--- NOTE | 2024-02-08 14:52 | Hospitalist Progress Note ---
Date of Service February 08, 2024 Assessment & Plan (1) Abdominal pain: (2) Diverticulitis of small bowel: (3) Enterocolitis: (4) ESRD (end stage renal disease) on dialysis: Plan This is a 78-year-old female who has a significant past medical history of chronic hypoxic respiratory failure on 3 L of O2, COPD, PAF off anticoagulation secondary to bleeding, mesenteric artery stenosis, HTN, mitral regurgitation, ESRD on HD, HLD, T2DM, secondary hyperparathyroidism, anemia and ESRD, hypogammaglobinemia and history of tobacco abuse who presents to ED secondary to abdominal pain. Recent admission 01/23 - 01/29 for near syncope. Seen and evaluated by cards. [place] possibly 2/2 labile HTN with HD, Lisinopril stopped and midodrine 3x weekly continued. She developed abd pain throughout stay and diarrhea. Stool biofire and for cdiff negative. Empirically started on oral vanco and discharged to [facility]. While at [facility] pt has been having worsening abd pain, n/v/d. Vanco increased to 250mg QID. She was borderline hypotensive and wbc climbing so sent to ED for eval. CT a/p: Fluid-filled small and large bowel with mild wall thickening of the transverse colon. The findings may reflect a nonspecific enterocolitis. No transition point to suggest a bowel obstruction. 2. Clustered small bowel loops within the lower anterior abdomen with bowel wall thickening, adjacent inflammation and associated diverticula which contain complex contents/stool. The findings raise the possibility of small bowel diverticulitis. No free air or abscess. Abdominal Pain Diverticulitis of the small bowel Possible persistent/recurrent c diff colitis Pt with significant leukocytosis >30 CT noting concern for diverticulitis stool cultures and repeat C. difficile testing pending NPO IV zosyn switched to IV Rocephin and IV Flagyl for treatment of diverticulitis p.o. vancomycin 500 every 6 hours also added for treatment of likely C. difficile colitis along with IV Flagyl probiotic consult general surg, appreciate rec infectious disease consult pending very cautious IVF D5NSS at 50cc/hr x 24hr continue to monitor ESRD on HD: typically T//Tue; however while at [facility] is on MWF, HD on 02/07 with nephro, on board Chronic hypoxic resp failure on 3.5L/COPD: continue home inhalers PAF: continue amiodarone, lfts ok, off OAC due to bleeding Anemia of CD: hgb stable 11.4, monitor, no s/sx of bleeding Chronic HFpEF, mod to severe MR : volume status via HD Hx of T2DM: last a1c in Mar was 5.9, repeat in a.m. Diet: currently NPO DVT ppx: SQ Heparin Dispo: PT/OT for further recs once medically stable Admission and Anticipated Discharge Date Admission Date: February 07, 2024 Subjective patient was seen after dialysis back down in her room. Denied acute concerns but did state that she felt tired stated that her abdomen was tender Review of Systems Review of Systems: All systems reviewed & are unremarkable except as noted in Subjective Physical Exam Physical Exam: General: Alert, oriented Neuro: weak HEENT: NC/AT CV: RRR Resp: Breath sounds clear bilaterally, no increased effort of breathing Abdomen: Soft, tender Extremities: No edema in lower extremities bilaterally. Results & Data Results & Data Vital Signs (Past 12 Hours) Vital Signs Temp Pulse Pulse Pulse Resp BP BP 02/08/24 13:20 70 94/34 L 02/08/24 13:00 70 91/32 L 02/08/24 12:40 70 87/34 L 02/08/24 12:39 02/08/24 12:20 67 95/37 L 02/08/24 12:00 69 101/41 L 02/08/24 11:40 70 99/37 L 02/08/24 11:20 67 105/43 L 02/08/24 11:00 66 90/39 L 02/08/24 10:48 68 97/36 L 02/08/24 10:44 66 59/28 L 02/08/24 10:33 68 71/27 L 02/08/24 10:30 36.5 C 70 02/08/24 07:25 36.4 C L 71 18 90/54 L 02/08/24 05:48 74 02/08/24 03:52 37.0 C 74 20 95/59 L Pulse Ox O2 Del Method O2 Flow Rate 02/08/24 13:20 02/08/24 13:00 02/08/24 12:40 02/08/24 12:39 Nasal Cannula 3 02/08/24 12:20 02/08/24 12:00 02/08/24 11:40 02/08/24 11:20 02/08/24 11:00 02/08/24 10:48 02/08/24 10:44 02/08/24 10:33 02/08/24 10:30 02/08/24 07:25 98 Room Air 02/08/24 05:48 02/08/24 03:52 98 Nasal Cannula 3 Diagnostic Findings Abdomen/Pelvis CT 02/07/24 13:22 CT OF THE ABDOMEN AND PELVIS WITHOUT CONTRAST CLINICAL HISTORY: Diffuse abdominal pain. COMPARISON STUDY: CT of the abdomen and pelvis January 26, 2024. KUB January 27, 2024. TECHNIQUE: Axial images of the abdomen and pelvis were obtained without IV contrast. Images were reviewed in the axial, sagittal, and coronal planes. Automated exposure control was utilized for the study. A dose lowering techniq ue was utilized adhering to the principles of ALARA. FINDINGS: Evaluation of the abdomen and pelvis is suboptimal on this unenhanced exam. No pneumatosis, free air or portal venous gas is present. There is no significant biliary ductal dilatation status post cholecystectomy. Hypodense splenic lesions are unchanged from earlier exams. These are likely benign. Bilateral adrenal nodules are also unchanged and are likely benign. A cystic 2.7 cm lesion within the pancreatic tail is similar to CT of May 12, 2022. There is no peripancreatic infiltration. A partially calcified nodule along the pancreatic head remains unchanged as well. Both kidneys are markedly atrophic. There is no hydronephrosis. There is colonic diverticulosis without evidence for acute colonic diverticulitis. The small and large bowel is fluid-filled. There is no transition point. There is mild wall thickening of the transverse colon. No fluid collections are present. There are clustered small bowel loops within the lower anterior abdomen on image 203 of 377 with wall thickening and mild adjacent inflammation. Associated small bowel diverticula are likely present. There is no extraluminal gas. This finding is new since prior CT. Lytic lesions within the bilateral acetabula are unchanged in appearance since prior exam. No newly lesions are identified. IMPRESSION: 1. Fluid-filled small and large bowel with mild wall thickening of the transverse colon. The findings may reflect a nonspecific enterocolitis. No transition point to suggest a bowel obstruction. 2. Clustered small bowel loops within the lower anterior abdomen with bowel wall thickening, adjacent inflammation and associated diverticula which contain complex contents/stool. The findings raise the possibility of small bowel diverticulitis. No free air or abscess. 3. No change in appearance of multiple lytic bilateral acetabular lesion since earlier CTs dating back to May 12, 2022. These remain indeterminate. ACT 112: Negative or not required by law. Electronically signed by: Vicente Tapia M.D. 02/07/2024 3:19 PM
[2024-02-08] MEDS: cefTRIAXone SODIUM 2,000 MG/50 ML BAG IV SCH (15:13)
[2024-02-08] MEDS: VANCOMYCIN HCL 500 MG/10 ML SOLN PO SCH (15:14)
[2024-02-08] MEDS: CHERRY SYRUP 5 ML UDP PO SCH (15:14)
[2024-02-08] MEDS: metroNIDAZOLE 500 MG/100 ML BAG IV SCH (15:17)
[2024-02-08] MEDS: valACYclovir HCL 500 MG TABLET PO SCH (16:10)
[2024-02-08] MEDS: traMADol HCL 50 MG TABLET PO PRN (16:10)
[2024-02-08] MEDS: MELATONIN 3 MG TAB PO PRN (22:11)
[2024-02-09 06:32] LABS: Hematocrit (blood only) 30.8 % (37.0-47.0); Mean Corpuscular Hemoglobin 38.6 pg (25.0-34.0); Mean Corpuscular Hgb Conc 32.5 g/dL (32.0-36.0); Mean Corpuscular Volume 118.9 fL (80.0-100.0); Mean Platelet Volume 11.7 fL (9.4-12.4); Platelet Count 113 K/uL (130-400); RDW Coefficient of Variation 13.1 % (11.5-14.5); RDW Standard Deviation 57.7 fL (36.4-46.3); Red Blood Count 2.59 M/uL (4.20-5.40); White Blood Count 22.23 K/ul (4.8-10.8)
[2024-02-09 06:37] LABS: Anisocytosis Present; Basophils # (auto) 0.05 K/uL (0.00-0.20); Basophils % (auto) 0.2 %; Eosinophils # (auto) 0.03 K/uL (0.00-0.50); Eosinophils % (auto) 0.1 %; Immature Granulocytes # (auto) 0.25 K/uL (0.01-0.20); Immature Granulocytes % (auto) 1.1 %; Lymphocytes % (auto) 2.7 %; Monocytes # (auto) 0.85 K/uL (0.11-0.59); Monocytes % (auto) 3.8 %; Neutrophils # (auto) 20.45 K/uL (1.40-6.50); Neutrophils % (auto) 92.1 %; Polychromasia 1+
[2024-02-09 06:43] LABS: Bilirubin,Total 0.4 mg/dl (0.2-1.0); Calcium 8.9 mg/dl (8.6-10.3); Magnesium 1.7 mg/dl (1.7-2.4); Potassium 4.3 mmol/L (3.5-5.1)
[2024-02-09 06:51] LABS: Albumin Globulin Ratio 1.3 (0.9-2); BUN Creatinine Ratio 5.1 (10-20); Creatinine Clr Calc Pharmacy 10.7 ml/min; Globulin 2.4 gm/dl (2.5-4.0); Phosphorus 4.1 mg/dl (2.5-4.9); Total Protein 5.4 gm/dl (6.0-8.3)
--- NOTE | 2024-02-09 09:01 | Electrocardiogram Report ---
Test Reason : Blood Pressure : */* mmHG Vent. Rate : 74 BPM Atrial Rate : 74 BPM P-R Int : 220 ms QRS Dur : 100 ms QT Int : 426 ms P-R-T Axes : 53 69 71 degrees QTcB Int : 472 ms Sinus rhythm with 1st degree A-V block Abnormal ECG When compared with ECG of 24-Jan-2024 06:52, No significant change was found Confirmed by Dwight Mg ([id number]) on 02/09/2024 9:01:16 AM Referred By: [facility] Confirmed By: Dwight Mg
--- NOTE | 2024-02-09 12:29 | Surgery Progress Note ---
Date of Service February 09, 2024 Assessment & Plan (1) Diverticulitis of small bowel: Plan: Her white counts improved She is having bowel movements, this will be sent for stool studies including C. difficile and already being treated for this No plans for any surgical intervention Will continue to follow Admission and Anticipated Discharge Date Admission Date: February 07, 2024 Subjective Patient seen and examined. States she is mildly improved since yesterday. She did have a large bowel movement just now. Afebrile. Review of Systems Constitutional: no fever and no chills Eyes: no blind spots and no corrective lenses Respiratory: no cough and no dyspnea Cardiovascular: no chest pain and no dyspnea on exertion Gastrointestinal: + abdominal pain; no nausea, no vomiting , no constipation and no diarrhea/loose stools Integumentary: no skin ulcer and no erythema Neurologic: no headache(s) Psychiatric: no behavioral changes and no depression Physical Exam Constitutional: WD/WN, vitals as above Eyes: PERRL, conjunctivae normal, anicteric sclerae Neck: trachea midline, no thyromegaly Respiratory: normal respiratory effort, lungs clear to auscultation Cardiovascular: RRR, no murmur, no edema Gastrointestinal (Abdomen): Inspection/Auscultation: abdomen normal to inspection; abdomen not distended Percussion/Palpation: + abdomen tender (Generalized) and abdomen soft; no guarding and no hernia Skin: no rashes, warm and dry Psychiatric: A+Ox3, euthymic affect Results & Data Vital Signs (Past 12 Hours) Vital Signs Temp Pulse Pulse Resp BP Pulse Ox O2 Del Method 02/09/24 11:36 36.4 C L 70 18 99/82 L 99 Nasal Cannula 02/09/24 07:27 36.7 C 65 18 97/57 L 98 Nasal Cannula 02/09/24 03:35 36.5 C 66 18 101/58 L 94 Nasal Cannula O2 Flow Rate 02/09/24 11:36 3 02/09/24 07:27 2 02/09/24 03:35 3 PG Care Time/CCT Total # of Minutes Spent Total Time Spent with Patient: Total time spent is greater than 50% in coordination of care (as documented) at patient's floor/unit and/or counseling patient: Coding Level of Care Code 73697 SUB INP/OBS CARE Diagnoses Diverticulitis of small bowel K57.12
--- NOTE | 2024-02-09 13:04 | Hospitalist Progress Note ---
Date of Service February 09, 2024 Assessment & Plan (1) Abdominal pain: (2) Diverticulitis of small bowel: (3) Enterocolitis: (4) ESRD (end stage renal disease) on dialysis: Plan This is a 78-year-old female who has a significant past medical history of chronic hypoxic respiratory failure on 3 L of O2, COPD, PAF off anticoagulation secondary to bleeding, mesenteric artery stenosis, HTN, mitral regurgitation, ESRD on HD, HLD, T2DM, secondary hyperparathyroidism, anemia and ESRD, hypogammaglobinemia and history of tobacco abuse who presents to ED secondary to abdominal pain. Recent admission 01/23 - 01/29 for near syncope. Seen and evaluated by cards. [place] possibly 2/2 labile HTN with HD, Lisinopril stopped and midodrine 3x weekly continued. She developed abd pain throughout stay and diarrhea. Stool biofire and for cdiff negative. Empirically started on oral vanco and discharged to [facility]. While at [facility] pt has been having worsening abd pain, n/v/d. Vanco increased to 250mg QID. She was borderline hypotensive and wbc climbing so sent to ED for eval. CT a/p: Fluid-filled small and large bowel with mild wall thickening of the transverse colon. The findings may reflect a nonspecific enterocolitis. No transition point to suggest a bowel obstruction. 2. Clustered small bowel loops within the lower anterior abdomen with bowel wall thickening, adjacent inflammation and associated diverticula which contain complex contents/stool. The findings raise the possibility of small bowel diverticulitis. No free air or abscess. Abdominal Pain Diverticulitis of the small bowel Possible persistent/recurrent c diff colitis Pt with significant leukocytosis >30 CT noting concern for diverticulitis stool cultures and repeat C. difficile testing pending NPO--> transitioned to clears on 02/09/24 IV zosyn switched to IV Rocephin and IV Flagyl for treatment of diverticulitis p.o. vancomycin 500 every 6 hours also added for treatment of likely C. difficile colitis along with IV Flagyl probiotic consult general surg, appreciate rec infectious disease consult pending very cautious IVF D5NSS at 50cc/hr x 24hr continue to monitor ESRD on HD: typically T//Tue; however while at [facility] is on MWF, HD on 02/07 with nephro, on board Chronic hypoxic resp failure on 3.5L/COPD: continue home inhalers PAF: continue amiodarone, lfts ok, off OAC due to bleeding Anemia of CD: hgb stable 11.4, monitor, no s/sx of bleeding Chronic HFpEF, mod to severe MR : volume status via HD Hx of T2DM: last a1c in Mar was 5.9, repeat in a.m. Diet: on clears, advanceas tolerated DVT ppx: SQ Heparin Dispo: PT/OT for further recs once medically stable Admission and Anticipated Discharge Date Admission Date: February 07, 2024 Subjective patient states that she was feeling weak and tired Notes that she has had no bowel movements but does note that she has been n.p.o. and not eating Review of Systems Review of Systems: All systems reviewed & are unremarkable except as noted in Subjective Physical Exam Physical Exam: General: Alert, oriented Neuro: weak HEENT: NC/AT CV: RRR Resp: Breath sounds clear bilaterally, no increased effort of breathing Abdomen: Soft, tender Extremities: edema in lower extremities bilaterally. Results & Data Results & Data Vital Signs (Past 12 Hours) Vital Signs Temp Pulse Pulse Resp BP Pulse Ox O2 Del Method 02/09/24 11:36 36.4 C L 70 18 99/82 L 99 Nasal Cannula 02/09/24 07:27 36.7 C 65 18 97/57 L 98 Nasal Cannula 02/09/24 03:35 36.5 C 66 18 101/58 L 94 Nasal Cannula O2 Flow Rate 02/09/24 11:36 3 02/09/24 07:27 2 02/09/24 03:35 3
[2024-02-09 14:26] LABS: Adenovirus F 40/41 PCR Not Detected (NotDetected); Astrovirus PCR Not Detected (NotDetected); Campylobacter PCR Not Detected (NotDetected); Cryptosporidium PCR Not Detected (NotDetected); Cyclospora cayetanensis PCR Not Detected (NotDetected); Entamoeba histolytica PCR Not Detected (NotDetected); Enteroaggregative E.coli(EAEC) Not Detected (NotDetected); Enteropathogenic E.coli (EPEC) Not Detected (NotDetected); Enterotoxigenic E.coli (ETEC) Not Detected (NotDetected); Giardia lamblia PCR Not Detected (NotDetected); Norovirus GI/GII PCR Not Detected (NotDetected); Plesiomonas shigelloides PCR Not Detected (NotDetected); Rotavirus A PCR Not Detected (NotDetected); Salmonella PCR Not Detected (NotDetected); Sapovirus PCR Not Detected (NotDetected); Shiga-like Toxin E.coli (STEC) Not Detected (NotDetected); Shigella/Enteroinvasive E.coli Not Detected (NotDetected); Vibrio cholerae PCR Not Detected (NotDetected); Vibrio species PCR Not Detected (NotDetected); Yersinia enterocolitica PCR Not Detected (NotDetected)
[2024-02-10 08:22] LABS: Hematocrit (blood only) 30.2 % (37.0-47.0); Hemoglobin 9.7 g/dl (12.0-16.0); Mean Corpuscular Hemoglobin 38.5 pg (25.0-34.0); Mean Corpuscular Hgb Conc 32.1 g/dL (32.0-36.0); Mean Corpuscular Volume 119.8 fL (80.0-100.0); Mean Platelet Volume 10.7 fL (9.4-12.4); Platelet Count 121 K/uL (130-400); RDW Coefficient of Variation 13.3 % (11.5-14.5); RDW Standard Deviation 58.6 fL (36.4-46.3); Red Blood Count 2.52 M/uL (4.20-5.40); White Blood Count 15.65 K/ul (4.8-10.8)
[2024-02-10 08:27] LABS: Albumin Globulin Ratio 1.2 (0.9-2); Albumin Level 2.8 gm/dl (3.4-5.0); BUN Creatinine Ratio 6.4 (10-20); Bilirubin,Total 0.4 mg/dl (0.2-1.0); Calcium 8.6 mg/dl (8.6-10.3); Creatinine Clr Calc Pharmacy 7.8 ml/min; Globulin 2.4 gm/dl (2.5-4.0); Magnesium 1.8 mg/dl (1.7-2.4); Phosphorus 4.9 mg/dl (2.5-4.9); Potassium 3.9 mmol/L (3.5-5.1); Total Protein 5.2 gm/dl (6.0-8.3)
[2024-02-10 09:11] LABS: Basophils # (auto) 0.07 K/uL (0.00-0.20); Basophils % (auto) 0.4 %; Eosinophils # (auto) 0.06 K/uL (0.00-0.50); Eosinophils % (auto) 0.4 %; Immature Granulocytes % (auto) 1.3 %; Lymphocytes % (auto) 3.2 %; Macrocytosis Present; Monocytes % (auto) 5.1 %; Neutrophils # (auto) 14.02 K/uL (1.40-6.50); Neutrophils % (auto) 89.6 %; Ovalocytes 1+; Polychromasia 2+
--- NOTE | 2024-02-10 09:43 | Dialysis Progress Note ---
Date of Service February 10, 2024 Assessment & Plan Admission and Anticipated Discharge Date Admission Date: February 07, 2024 Subjective Assessment & Plan (1) ESRD on hemodialysis: Long standing ESRD patient with Anuria. has a good Left UE AVF which will be used. Currently appears to be Somewhat vol depleted from Acute GI issues and poor Appetite. very high WBC on admission but now down trending. No UF today. hgb < 10+ --so will give ssome EPO today. na and K and Other electrolytes are at acceptable range. radha do 3k bath for 3.5 hrs. (2) Enterocolitis: Reason for Admission. had Sig symptoms and very very high WBC at 31K but both Symptoms and WBC better. NO surgery needed . On PO Vanco and flagyl and Ceftraizxone. All abx Can be continued. S--seen during Dialysis. GI symptoms better. No abd pain and eating some. NO surgery needed. So far tolerating dialysis. BP is still somewhat low though. AVF fine. Physical Exam Physical Exam: Gen: Elderly female , weak and tired. barely answered. chronically ill . AAo x 3 Lung: Clear. Heart: RRR nml s1/s2, LUE AV Fistula +thrill noted Abd: soft, significantly tender to minimal palpation, Ext: no edema, Skin: no rash, warm, dry Results & Data Vital Signs (Past 12 Hours) Vital Signs Temp Pulse Pulse Resp BP Pulse Ox O2 Del Method 02/10/24 08:21 59 L 02/10/24 08:01 36.6 C 60 20 94/54 L 98 Nasal Cannula 02/10/24 07:21 Nasal Cannula 02/10/24 03:30 36.5 C 59 L 18 105/50 L 98 Room Air 02/09/24 23:25 36.4 C L 63 18 94/52 L 100 Nasal Cannula 02/09/24 21:53 61 O2 Flow Rate 02/10/24 08:21 02/10/24 08:01 3 02/10/24 07:21 3 02/10/24 03:30 02/09/24 23:25 3 02/09/24 21:53
[2024-02-10] MEDS: MIDODRINE HCL 2.5 MG TAB PO STA (09:50)
[2024-02-10] MEDS: EPOETIN ALFA 4,000 UNIT/ML VIAL IV ONE (09:51)
[2024-02-10] MEDS: ALBUMIN 25% 12.5 GM/50 ML VIAL IV ONE ×2 (10:23→10:50)
--- NOTE | 2024-02-10 12:00 | Hospitalist Progress Note ---
Date of Service February 10, 2024 Assessment & Plan (1) Abdominal pain: (2) Diverticulitis of small bowel: (3) Enterocolitis: (4) ESRD (end stage renal disease) on dialysis: Plan This is a 78-year-old female who has a significant past medical history of chronic hypoxic respiratory failure on 3 L of O2, COPD, PAF off anticoagulation secondary to bleeding, mesenteric artery stenosis, HTN, mitral regurgitation, ESRD on HD, HLD, T2DM, secondary hyperparathyroidism, anemia and ESRD, hypogammaglobinemia and history of tobacco abuse who presents to ED secondary to abdominal pain. Recent admission 01/23 - 01/29 for near syncope. Seen and evaluated by cards. [place] possibly 2/2 labile HTN with HD, Lisinopril stopped and midodrine 3x weekly continued. She developed abd pain throughout stay and diarrhea. Stool biofire and for cdiff negative. Empirically started on oral vanco and discharged to [facility]. While at [facility] pt has been having worsening abd pain, n/v/d. Vanco increased to 250mg QID. She was borderline hypotensive and wbc climbing so sent to ED for eval. CT a/p: Fluid-filled small and large bowel with mild wall thickening of the transverse colon. The findings may reflect a nonspecific enterocolitis. No transition point to suggest a bowel obstruction. 2. Clustered small bowel loops within the lower anterior abdomen with bowel wall thickening, adjacent inflammation and associated diverticula which contain complex contents/stool. The findings raise the possibility of small bowel diverticulitis. No free air or abscess. Abdominal Pain Diverticulitis of the small bowel Possible persistent/recurrent c diff colitis Pt with significant leukocytosis >30 CT noting concern for diverticulitis stool cultures and repeat C. difficile testing pending NPO--> transitioned to clears on 02/09/24 IV zosyn switched to IV Rocephin and IV Flagyl for treatment of diverticulitis p.o. vancomycin 500 every 6 hours also added for treatment of likely C. difficile colitis along with IV Flagyl probiotic consult general surg, appreciate rec infectious disease consult pending very cautious IVF D5NSS at 50cc/hr x 24hr continue to monitor PAF Pt flipped from sinus rhythm to atrial fibrillation in the AM of 02/09 Per chart review appears that her amiodarone had not been given this AM continue amiodarone, off oral anticoagulation due to bleeding Continue to monitor on telemetry, rate has been improving ESRD on HD: typically T/Th/Sat; however while at [facility] is on MWF, HD on 02/07 with nephro, on board Chronic hypoxic resp failure on 3.5L/COPD: continue home inhalers Anemia of CD: hgb stable 11.4, monitor, no s/sx of bleeding Chronic HFpEF, mod to severe MR : volume status via HD Hx of T2DM: last a1c in Mar was 5.9, repeat in a.m. Diet: on full liquids, advance as tolerated DVT ppx: SQ Heparin Dispo: PT/OT for further recs once medically stable Admission and Anticipated Discharge Date Admission Date: February 07, 2024 Subjective Flaquita was seen while up at dialysis Noted that her "tailbone hurt" states that she has been tolerating the clears and agreeable to advancing her diet to a full liquid diet Notified by nursing that patient had flipped into atrial fibrillation Review of Systems Review of Systems: All systems reviewed & are unremarkable except as noted in Subjective Physical Exam Physical Exam: General: Alert, oriented Neuro: weak HEENT: NC/AT CV: RRR Resp: Breath sounds clear bilaterally, no increased effort of breathing Abdomen: Soft, tender Extremities: edema in lower extremities bilaterally. Results & Data Results & Data Vital Signs (Past 12 Hours) Vital Signs Temp Pulse Pulse Pulse Resp BP BP 02/10/24 11:30 61 90/42 L 02/10/24 11:00 64 99/45 L 02/10/24 10:30 58 L 95/37 L 02/10/24 10:00 58 L 95/44 L 02/10/24 09:30 60 110/48 L 02/10/24 09:22 36.5 C 60 02/10/24 08:21 59 L 02/10/24 08:01 36.6 C 60 20 94/54 L 02/10/24 07:21 02/10/24 03:30 36.5 C 59 L 18 105/50 L Pulse Ox O2 Del Method O2 Flow Rate 02/10/24 11:30 02/10/24 11:00 02/10/24 10:30 02/10/24 10:00 02/10/24 09:30 02/10/24 09:22 02/10/24 08:21 02/10/24 08:01 98 Nasal Cannula 3 02/10/24 07:21 Nasal Cannula 3 02/10/24 03:30 98 Room Air
--- NOTE | 2024-02-10 14:43 | Infectious Disease Consult ---
Date of Service February 10, 2024 Telehealth Information I performed this visit using a real-time telehealth connection between my location and the patients location ([facility]). After connecting through interactive tele-video, patient was identified by name and date of and/or wristband check.Patient (or authorized healthcare abrasives sales representative) was informed that this was a telemedicine visit and it was being conducted confidentially over secure lines. My office door was closed and no one else was present in the room with me.Patient (or authorized healthcare abrasives sales representative) provided consent to proceed with the visit, expressed an understanding of privacy and security of the telemedicine visit, and gave permission to have a hospital abrasives sales representative in the room in order to assist with the visit and to conduct portions of the visit, as needed. I informed the patient (or authorized healthcare abrasives sales representative) that I reviewed their record and presented the opportunity for them to ask any questions regarding the visit today. The patient agreed to participate. Assessment & Plan (1) Abdominal pain: Plan: Abdominal pain likely secondary to diverticulitis (2) Diverticulitis of small bowel: Plan: Continue ceftriaxone and flagyl Plan Recommend continuing ceftriaxone and flagyl and if her C Diff PCR is negative would discontinue oral vancomycin .Recommend treating for 10-14 days and on discharge can switch to augmentin 875/125 PO BID .Thank you for allowing us to participate in the care of this patient ID will sign off History of Present Illness History of Present Illness 78 y/o F PMHx of chronic hypoxic respiratory failure on 3 L of O2, COPD, PAF off anticoagulation secondary to bleeding, mesenteric artery stenosis, HTN, mitral regurgitation, ESRD on HD, HLD, T2DM, secondary hyperparathyroidism, anemia and ESRD, hypogammaglobinemia and history of tobacco abuse who presented to ED secondary to abdominal pain. Recent admission 01/23 - 01/29 for near syncope. She developed abdominal pain and diarrhea. Her C Diff PCR negative. Empirically started on oral vancomycin and discharged to [facility]. While at [facility] pt has been having worsening abdominal pain, n/v/d. Vanco increased to 250mg QID. She was borderline hypotensive and WBC increasing and so she was sent to ED for evaluation .CT abdomen was concerning for diverticulitis and she is on ceftriaxone ,flagyl and oral vancomycin Allergies Allergy/AdvReac Type Severity Reaction Status Date / Time chlorhexidine Allergy Intermediate ITCHING Verified 05/24/23 14:59 Home Medications Medication Instructions Recorded Confirmed Type ipratropium 0.5 mg-albuterol 3 mg 3 ml inhalation QID PRN Shortness 09/26/18 02/07/24 History (2.5 mg base)/3 mL nebulization Of Breath soln vitamin B complex-vitamin C-folic 1 tab PO QAM 09/26/18 02/07/24 History acid 0.8 mg tablet (Arabella-Tika) fluticasone propionate 50 2 spray intranasal HS 01/18/19 02/07/24 History mcg/actuation nasal spray,suspension albuterol sulfate 90 mcg/actuation 2 puff inhalation Q4H PRN Wheezing 04/05/19 02/07/24 History aerosol inhaler acetaminophen 325 mg tablet 650 mg PO Q6H PRN Pain 04/14/21 02/07/24 History (Tylenol) camphor-menthol 0.5 %-0.5 % lotion 1 applic topical DIRECTED PRN 04/14/21 02/07/24 History Itching epoetin gabriel 10,000 unit/mL 0 unit IV DIRECTED 04/14/21 02/07/24 History injection solution (Procrit) lidocaine-prilocaine 2.5 %-2.5 % 1 applic topical DIRECTED PRN 04/14/21 02/07/24 History topical cream PRIOR TO DIALYSIS loperamide 2 mg capsule (Imodium 2 mg PO QID PRN Diarrhea 04/14/21 02/07/24 History A-D) valacyclovir 1 gram tablet 1,000 mg PO QAM 04/14/21 02/07/24 History fluorometholone 0.1 % eye 1 drp OPL QA 01/25/22 02/07/24 History drops,suspension amiodarone 200 mg tablet 200 mg PO DAILY 30 days #60 tabs 05/12/22 02/07/24 Rx docusate sodium 100 mg capsule 100 mg PO BID PRN Constipation 04/01/23 02/07/24 History (Colace) fluticasone furoate 200 1 inh inhalation DAILY 04/01/23 02/07/24 History mcg-vilanterol 25 mcg/dose inhalation powder (Breo Ellipta) midodrine 2.5 mg tablet 2.5 mg PO 3XWK 12/31/23 02/07/24 History lanthanum 500 mg chewable tablet 500 mg PO UD 01/24/24 02/07/24 History sevelamer carbonate 800 mg tablet 1,600 mg PO UD 01/24/24 02/07/24 History (Renvela) vancomycin 1,000 mg intravenous 250 mg PO Q6 02/07/24 02/07/24 History injection Patient History Medical History ESRD (end stage renal disease) on dialysis follows with Dr. Reed; Hillary Corley, Luis [facility] - [facility] (since 02/2013) On home oxygen therapy 3 LPM cont History of colon polyps Tobacco use History of GI bleed Renal cyst H/O cardiovascular stress test "05/2013 - negative for ischemia" Pancreatic cyst Obesity Psoriasis Adrenal adenoma Surgical History History of surgery AVF creation History of intestinal surgery Family History Father Myocardial infarction, Onset Age: 64 Diabetes Mother , 87 Alzheimer disease Brother Diabetes Other No family history of adverse response to anesthesia Social History Smoking Status: Current every day smoker Tobacco Type: Cigarettes Cigarettes Per Day: 3; Second Hand Exposure: Yes; Do You Dip or Chew Tobacco: No; Hx Alcohol Use: No Hx Substance Use: No Preferred Language: Tunisian Communication Ability: Effective Data Entry 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 Beliefs That Will Affect Care: None marital status: / Current Living Situation: Alone current occupational status: retired How many Children do You have: 1 Feels Safe at Home: Yes Safety Concerns: Feels Safe At This Time Assistive Devices: Oxygen - Continuous, Walker and Other Review of Systems Lower abdominal pain Physical Exam awake alert no respiratory distress Results & Data Vital Signs (Past 12 Hours) Vital Signs Temp Pulse Pulse Pulse Resp BP BP 02/10/24 13:00 36.5 C 54 L 102/46 L 02/10/24 12:30 63 106/47 L 02/10/24 12:00 62 87/40 L 02/10/24 11:30 61 90/42 L 02/10/24 11:00 64 99/45 L 02/10/24 10:30 58 L 95/37 L 02/10/24 10:00 58 L 95/44 L 02/10/24 09:30 60 110/48 L 02/10/24 09:22 36.5 C 60 02/10/24 08:21 59 L 02/10/24 08:01 36.6 C 60 20 94/54 L 02/10/24 07:21 02/10/24 03:30 36.5 C 59 L 18 105/50 L Pulse Ox O2 Del Method O2 Flow Rate 02/10/24 13:00 02/10/24 12:30 02/10/24 12:00 02/10/24 11:30 02/10/24 11:00 02/10/24 10:30 02/10/24 10:00 02/10/24 09:30 02/10/24 09:22 02/10/24 08:21 02/10/24 08:01 98 Nasal Cannula 3 02/10/24 07:21 Nasal Cannula 3 02/10/24 03:30 98 Room Air Laboratory Results WBC 53472 Diagnostic Findings IMPRESSION: 1. Fluid-filled small and large bowel with mild wall thickening of the transverse colon. The findings may reflect a nonspecific enterocolitis. No transition point to suggest a bowel obstruction. 2. Clustered small bowel loops within the lower anterior abdomen with bowel wall thickening, adjacent inflammation and associated diverticula which contain complex contents/stool. The findings raise the possibility of small bowel diverticulitis. No free air or abscess. 3. No change in appearance of multiple lytic bilateral acetabular lesion since earlier CTs dating back to May 12, 2022. These remain indeterminate. (1) Abdominal pain Abdominal location: generalized Qualified Code(s): R10.84 - Generalized abdominal pain
--- NOTE | 2024-02-10 14:45 | Surgery Progress Note ---
Date of Service February 10, 2024 Assessment & Plan (1) Diverticulitis of small bowel: Plan: Pt admitted with abdominal pain, CT scan concerning for small bowel diverticulitis and enterocolitis WBC decreasing 15 (22). Pt afebrile. received dialysis today Abdominal pain remains. But she is tolerating liquids and passing stool, no n/v Would keep on fulls for today and wait to advance until further improvement in her pain Continue IV abx No surgical intervention required. Will follow Encourage OOB and offloading buttocks region for small sacral wound present (2) Enterocolitis: Admission and Anticipated Discharge Date Admission Date: February 07, 2024 Supervising Physician Co-Signing Physician Notes I have seen and examined this patient with the surgical PA and agree with the plan Subjective Patient reports ongoing abdominal pain. Otherwise tolerating liquid diet no n/v. + bm today. Physical Exam Physical Exam: awake, resting in bed Gastrointestinal (Abdomen): Inspection/Auscultation: abdomen not distended Percussion/Palpation: + abdomen tender (generalized discomfort to palpation ) Skin: + small bed sore sacral region Results & Data Vital Signs (Past 12 Hours) Vital Signs Temp Pulse Pulse Pulse Resp BP BP 02/10/24 13:00 97.7 F 54 L 102/46 L 02/10/24 12:30 63 106/47 L 02/10/24 12:00 62 87/40 L 02/10/24 11:30 61 90/42 L 02/10/24 11:00 64 99/45 L 02/10/24 10:30 58 L 95/37 L 02/10/24 10:00 58 L 95/44 L 02/10/24 09:30 60 110/48 L 02/10/24 09:22 97.7 F 60 02/10/24 08:21 59 L 02/10/24 08:01 97.9 F 60 20 94/54 L 02/10/24 07:21 02/10/24 03:30 97.7 F 59 L 18 105/50 L Pulse Ox O2 Del Method O2 Flow Rate 02/10/24 13:00 02/10/24 12:30 02/10/24 12:00 02/10/24 11:30 02/10/24 11:00 02/10/24 10:30 02/10/24 10:00 02/10/24 09:30 02/10/24 09:22 02/10/24 08:21 02/10/24 08:01 98 Nasal Cannula 3 02/10/24 07:21 Nasal Cannula 3 02/10/24 03:30 98 Room Air PG Care Time/CCT Total # of Minutes Spent Total Time Spent with Patient: Total time spent is greater than 50% in coordination of care (as documented) at patient's floor/unit and/or counseling patient: Coding Level of Care Code 29599 SUB INP/OBS CARE 04/21MIN Diagnoses Diverticulitis of small bowel K57.12 Enterocolitis K52.9
--- NOTE | 2024-02-10 15:40 | Electrocardiogram Report ---
Test Reason : Blood Pressure : */* mmHG Vent. Rate : 101 BPM Atrial Rate : 101 BPM P-R Int : * ms QRS Dur : 110 ms QT Int : 394 ms P-R-T Axes : * 57 -27 degrees QTcB Int : 510 ms Atrial fibrillation with rapid ventricular response Diffuse Nonspecific ST and T wave abnormality Abnormal ECG When compared with ECG of 08-Feb-2024 06:41, Atrial fibrillation has replaced Sinus rhythm HR has increased by [address] and T wave abnormality now present Confirmed by Dwight Mg ([id number]) on 02/10/2024 3:39:51 PM Referred By: [facility] Confirmed By: Dwight Mg
[2024-02-11 06:38] LABS: Hematocrit (blood only) 30.9 % (37.0-47.0); Hemoglobin 9.7 g/dl (12.0-16.0); Mean Corpuscular Hemoglobin 37.7 pg (25.0-34.0); Mean Corpuscular Hgb Conc 31.4 g/dL (32.0-36.0); Mean Corpuscular Volume 120.2 fL (80.0-100.0); Mean Platelet Volume 11.5 fL (9.4-12.4); Platelet Count 100 K/uL (130-400); RDW Coefficient of Variation 13.3 % (11.5-14.5); Red Blood Count 2.57 M/uL (4.20-5.40); White Blood Count 10.31 K/ul (4.8-10.8)
--- NOTE | 2024-02-11 06:45 | Surgery Progress Note ---
Date of Service February 11, 2024 Assessment & Plan (1) Diverticulitis of small bowel: Plan: Pt admitted with abdominal pain, CT scan concerning for small bowel diverticulitis and enterocolitis WBC decreasing today is 10. Continue IV abx Abdominal pain remains. But she is tolerating liquids without worsening pain, N/V. She is passing stool Due to ongoing pain, would still keep patient on full liquids until pain improves. Encourage OOB and offloading buttocks region for small sacral wound present Continue medical management per primary team, surgery will continue to follow (2) Enterocolitis: Admission and Anticipated Discharge Date Admission Date: February 07, 2024 Supervising Physician Co-Signing Physician Notes I have seen and examined this patient with the surgical PA. I agree with this plan. She does state her pain is slightly improved, still moderately TTP Recommend continue on full liquids Leukocytosis resolving with current regimen Subjective Patient continues with ongoing lower abdominal pain, still mostly in her LLQ Has been tolerating liquids the last few days without any worsening pain, N/V Afebrile, continues on abx, WBC continues to improve and is 10 today Physical Exam Constitutional: WD/WN, vitals as above Respiratory: normal respiratory effort, lungs clear to auscultation Gastrointestinal (Abdomen): Abdomen soft and nondistended. +TTP throughout lower abdomen/pelvic region mostly in the LLQ however no rebound or guarding Skin: + small bed sore sacral region Psychiatric: A+Ox3, euthymic affect Results & Data Vital Signs (Past 12 Hours) Vital Signs Temp Pulse Resp BP Pulse Ox O2 Del Method O2 Flow Rate 02/11/24 04:54 96/50 L 02/11/24 03:36 36.8 C 92 H 18 85/48 L 97 Nasal Cannula 3 02/10/24 23:35 36.7 C 82 20 101/62 99 Nasal Cannula 3 02/10/24 20:00 Nasal Cannula 3 02/10/24 19:16 36.7 C 80 20 105/64 95 Nasal Cannula 3 PG Care Time/CCT Total # of Minutes Spent Total Time Spent with Patient: Total time spent is greater than 50% in coordination of care (as documented) at patient's floor/unit and/or counseling patient: Coding [place] [address] SUB INP/OBS CARE 25MIN Patient Type Established Medical Decision Making Straight Forward Diagnoses Diverticulitis of small bowel K57.12 Enterocolitis K52.9
[2024-02-11 07:17] LABS: ALC (manual) 0.31 K/uL (1.2-3.4); ANC (manual) 8.97 K/uL (1.4-6.5); Eosinophils # (manual) 0.21 K/uL (0-0.50); Eosinophils % (manual) 2 %; Lymphocytes # (manual) 0.31 K/uL (1.2-3.4); Lymphocytes % (manual) 3 %; Macrocytosis Present; Metamyelocytes # (manual) 0.21 K/uL (0-0); Metamyelocytes % (manual) 2 %; Monocytes # (manual) 0.31 K/uL (0.11-0.59); Monocytes % (manual) 3 %; Myelocytes # (manual) 0.31 K/uL (0-0); Myelocytes % (manual) 3 %; Neutrophils # (manual) 8.97 K/uL (1.40-6.50); Neutrophils % (manual) 87 %; Polychromasia 1+
[2024-02-11 07:20] LABS: Alanine Aminotransferase 11 U/L (7-52); Albumin Globulin Ratio 1.2 (0.9-2); Albumin Level 2.8 gm/dl (3.4-5.0); Alkaline Phosphatase 87 U/L (34-104); Anion Gap 9 (3-11); Aspartate Aminotransferase 16 U/L (13-39); BUN Creatinine Ratio 5.4 (10-20); Bilirubin,Total 0.4 mg/dl (0.2-1.0); Blood Urea Nitrogen 21 mg/dl (6-23); Calcium 8.5 mg/dl (8.6-10.3); Carbon Dioxide 28 mmol/L (21-32); Chloride 105 mmol/L (98-107); Creatinine Clr Calc Pharmacy 12.6 ml/min; Ferritin 1299.7 ng/ml (8-388); Globulin 2.3 gm/dl (2.5-4.0); Glucose 123 mg/dl (70-99(Fasting)); Iron 57 mcg/dl (35-150); Magnesium 1.7 mg/dl (1.7-2.4); Phosphorus 2.2 mg/dl (2.5-4.9); Potassium 3.6 mmol/L (3.5-5.1); Sodium 142 mmol/L (136-145); Total Protein 5.1 gm/dl (6.0-8.3); Unsaturated Iron Binding Cap < 55 mcg/dl (155-355)
[2024-02-11 07:25] LABS: Folate (Folic Acid),Ser orPlas > 22.30 ng/ml (>5.38)
[2024-02-11 07:26] LABS: Vitamin B12 985 pg/ml (180-914)
[2024-02-11] MEDS: POT PHOSPHATE MONOBASIC W/ SOD TAB PO ONE (09:58)
--- NOTE | 2024-02-11 11:00 | Hospitalist Progress Note ---
Date of Service February 11, 2024 Assessment & Plan (1) Abdominal pain: (2) Diverticulitis of small bowel: (3) Enterocolitis: (4) ESRD (end stage renal disease) on dialysis: Plan This is a 78-year-old female who has a significant past medical history of chronic hypoxic respiratory failure on 3 L of O2, COPD, PAF off anticoagulation secondary to bleeding, mesenteric artery stenosis, HTN, mitral regurgitation, ESRD on HD, HLD, T2DM, secondary hyperparathyroidism, anemia and ESRD, hypogammaglobinemia and history of tobacco abuse who presents to ED secondary to abdominal pain. Recent admission 01/23 - 01/29 for near syncope. Seen and evaluated by cards. [place] possibly 2/2 labile HTN with HD, Lisinopril stopped and midodrine 3x weekly continued. She developed abd pain throughout stay and diarrhea. Stool biofire and for cdiff negative. Empirically started on oral vanco and discharged to [facility]. While at [facility] pt has been having worsening abd pain, n/v/d. Vanco increased to 250mg QID. She was borderline hypotensive and wbc climbing so sent to ED for eval. CT a/p: Fluid-filled small and large bowel with mild wall thickening of the transverse colon. The findings may reflect a nonspecific enterocolitis. No transition point to suggest a bowel obstruction. 2. Clustered small bowel loops within the lower anterior abdomen with bowel wall thickening, adjacent inflammation and associated diverticula which contain complex contents/stool. The findings raise the possibility of small bowel diverticulitis. No free air or abscess. Abdominal Pain Diverticulitis of the small bowel Possible persistent/recurrent c diff colitis Pt with significant leukocytosis >30 CT noting concern for diverticulitis stool cultures negative Repeat C. difficile testing was initially not able to be obtained before treatment. Eventually obtained on 02/10 after abx treatments and was negative NPO--> transitioned to clears on 02/09/24, full liquids on 02/10/24 and low fiber diet on 02/11/24. per nursing, patient without much intake IV zosyn switched to IV Rocephin and IV Flagyl for treatment of diverticulitis, p.o. vancomycin 500mg every 6 hours also added for treatment of likely C. difficile colitis along with IV Flagyl probiotic daily consult general surg, appreciate recs -continue with full liquids as abd still sig tender to palpation -Continue abx regimen Infectious disease consulted, appreciate recs very cautious IVF D5NSS at 50cc/hr x 24hr continue to monitor PAF Pt flipped from sinus rhythm to atrial fibrillation in the AM of 02/09 Per chart review appears that her amiodarone had not been given on 02/08/2024. However per chart review and discussion with nurses she did receive her dose on 02/08, 02/09 and 02/10 (today) her heart rates are currently controlled continue amiodarone, off oral anticoagulation due to bleeding Continue to monitor on telemetry, rate has been improving ESRD on HD: typically T//Sat however while at [facility] is on MWF HD on 02/07 with nephro, on board Also on 02/09 Sacral Wound Pt with stage II sacral ulcer Continue offloading as tolerated Wound consult Chronic hypoxic resp failure on 3.5L/COPD continue home inhalers Anemia of Chronic Disease hgb stable 11.4 monitor no s/sx of bleeding Chronic HFpEF, mod to severe MR volume status via HD Hx of T2DM last a1c in Mar was 5.9 5.9 on repeat this admission Diet: on full liquids, advance as tolerated DVT ppx: SQ Heparin Dispo: PT/OT for further recs once medically stable Admission and Anticipated Discharge Date Admission Date: February 07, 2024 Subjective patient was seen in the a.m. with nurse Jolley at bedside States that still having the lumbosacral pain Notes that she is not eating much when asked if there was anything else we can do for her, she joked she would like some whiskey Review of Systems Review of Systems: All systems reviewed & are unremarkable except as noted in Subjective Physical Exam Physical Exam: General: Alert, oriented Neuro: weak HEENT: NC/AT CV: RRR Resp: Breath sounds clear bilaterally, no increased effort of breathing Abdomen: Soft, tender Lower back, stage II sacral ulcer noted in sacral area Extremities: edema in lower extremities bilaterally. Results & Data Results & Data Vital Signs (Past 12 Hours) Vital Signs Temp Pulse Resp BP Pulse Ox O2 Del Method O2 Flow Rate 02/11/24 09:00 Nasal Cannula 3 02/11/24 08:14 36.4 C L 87 18 90/47 L 99 Nasal Cannula 3 02/11/24 04:54 96/50 L 02/11/24 03:36 36.8 C 92 H 18 85/48 L 97 Nasal Cannula 3 02/10/24 23:35 36.7 C 82 20 101/62 99 Nasal Cannula 3
--- NOTE | 2024-02-11 19:06 | Nephrology Progress Note ---
Date of Service February 11, 2024 Assessment & Plan (1) ESRD on hemodialysis: Plan: Long standing ESRD patient with Anuria. has a good Left UE AVF for access; no issues continues to appear vol depleted from Acute GI issues and poor Appetite. leukocytosis improving from 31 02/07 > 10 today. hgb 9.7 -- had 4K units epo yesterday yesterday had no UF and had gentle IVF d5nss at 60/hr. on full liquid diet >> fluid restriction not indicated; dialysis diet not indicated at this time as K 3.7 / controlled continue to hold renvela continue low dose midodrine w/ HD; else would not intervene specifically for hypotension (2) Diverticulitis of small bowel: Plan: Reason for Admission. has Sig symptoms and very very high WBC at 31K. On PO Vanco and flagyl and Ceftraizxone. All abx Can be continued. Admission and Anticipated Discharge Date Admission Date: February 07, 2024 Subjective seen on evening rounds. still w/ diarrhea and intermittent abdominal pain. minimal po intake, minimal appetite. no worsening sob; no uf yesterday. daughter bedside for eval. Review of Systems 2 Review of Systems: All systems reviewed & are unremarkable except as noted in Subjective Physical Exam 2 Constitutional: well developed, + thin, + frail appearing and cooperative; no acute distress ENMT: Mouth: + dry oral mucous membranes Respiratory: normal respiratory effort Auscultation: + diminished lung sounds Cardiovascular: Rate/Rhythm: regular rate and regular rhythm Extremities: + AV fistula; no edema Gastrointestinal (Abdomen): Inspection/Auscultation: normal bowel sounds P ercussion/Palpation: + abdomen tender (to moderate palpation periumbilical), + guarding and abdomen soft Musculoskeletal: Extremities: strength 5/5 throughout Skin: no rashes, warm and dry Neurologic: louie, fluent speech, no tremor Results & Data Vital Signs (Past 12 Hours) Vital Signs Temp Pulse Pulse Resp BP Pulse Ox O2 Del Method 02/11/24 16:37 96 H 02/11/24 15:15 36.3 C L 101 H 20 95/54 L 100 Nasal Cannula 02/11/24 11:34 36.4 C L 94 H 18 101/62 100 Nasal Cannula 02/11/24 09:00 Nasal Cannula 02/11/24 08:14 36.4 C L 87 18 90/47 L 99 Nasal Cannula O2 Flow Rate 02/11/24 16:37 02/11/24 15:15 3 02/11/24 11:34 3 02/11/24 09:00 3 02/11/24 08:14 3 Laboratory Results 02/11/24 05:40 02/11/24 05:40
--- NOTE | 2024-02-12 06:32 | Surgery Progress Note ---
Date of Service February 12, 2024 Assessment & Plan (1) Diverticulitis of small bowel: Plan: Pt admitted with abdominal pain, CT scan concerning for small bowel diverticulitis and enterocolitis -WBC has improved, currently pending AM labs. Continues on abx -Although pt states her pain is somewhat improved she still complains of LLQ abdominal pain. She is tolerating full liquids without worsening pain, N/V. -Due to ongoing pain, will discuss with attending surgeon about possible diet advancement vs continuing fulls at this time -Encourage OOB and offloading buttocks region for small sacral wound present -Continue medical management per primary team, surgery will continue to follow (2) Enterocolitis: Admission and Anticipated Discharge Date Admission Date: February 07, 2024 Supervising Physician Co-Signing Physician Notes I have seen and examined this patient this am. Previous leukocytosis has been resolved for the past two days, she has remained afebrile, tolerating a diet and examination is out of proportion to what she admits or appears otherwise. She is still quite TTP throughout her abdomen, greatest along the right side. This am upon my evaluation of the patient, although she states maybe the pain is a little better, she does note that this am after oral intake her abdomen became more irritated. She also notes her BP was considerably lower in the earlier am which has been an off and on issue. I discussed this case with the medical attending this am to discuss the possibility of a CTA. Dr. Frederick discussed this with nephrology who is ok with this as well. Dr. Frederick will make the final determination after her evaluation of the patient today. May need increased systolic BPs and hydration at the same time, she is on dialysis which further complicates this. Will f/u CTA if performed. Subjective Patient continues with ongoing lower abdominal pain, still mostly in her LLQ but states she feels like it has somewhat improved Has been tolerating full liquids the last few days without any worsening pain, N/V Afebrile, continues on abx, leukocytosis improving, pending AM WBC Physical Exam Constitutional: WD/WN, vitals as above Respiratory: normal respiratory effort, lungs clear to auscultation Gastrointestinal (Abdomen): Abdomen soft and nondistended. Continues with +TTP throughout lower abdomen/pelvic region mostly in the LLQ however no rebound or guarding Psychiatric: A+Ox3, euthymic affect Results & Data Vital Signs (Past 12 Hours) Vital Signs Temp Pulse Resp BP Pulse Ox O2 Del Method O2 Flow Rate 02/12/24 03:20 36.6 C 84 18 93/58 L 99 Nasal Cannula 3 02/11/24 22:50 36.6 C 60 18 103/65 99 Nasal Cannula 3 02/11/24 20:37 36.5 C 83 18 97/59 L 95 Nasal Cannula 3 02/11/24 19:30 Nasal Cannula 3 PG Care Time/CCT Total # of Minutes Spent Total Time Spent with Patient: Total time spent is greater than 50% in coordination of care (as documented) at patient's floor/unit and/or counseling patient: Coding Level of Care Code 36759 SUB INP/OBS CARE 04/21MIN Diagnoses Diverticulitis of small bowel K57.12 Enterocolitis K52.9
[2024-02-12 07:55] LABS: Hematocrit (blood only) 32.2 % (37.0-47.0); Hemoglobin 10.2 g/dl (12.0-16.0); Mean Corpuscular Hemoglobin 38.2 pg (25.0-34.0); Mean Corpuscular Hgb Conc 31.7 g/dL (32.0-36.0); Mean Corpuscular Volume 120.6 fL (80.0-100.0); Mean Platelet Volume 11.3 fL (9.4-12.4); Platelet Count 102 K/uL (130-400); RDW Coefficient of Variation 13.6 % (11.5-14.5); Red Blood Count 2.67 M/uL (4.20-5.40); White Blood Count 9.55 K/ul (4.8-10.8)
[2024-02-12 08:12] LABS: Basophils # (auto) 0.06 K/uL (0.00-0.20); Basophils % (auto) 0.6 %; Eosinophils # (auto) 0.05 K/uL (0.00-0.50); Eosinophils % (auto) 0.5 %; Immature Granulocytes # (auto) 0.23 K/uL (0.01-0.20); Immature Granulocytes % (auto) 2.4 %; Lymphocytes # (auto) 0.57 K/uL (1.20-3.40); Macrocytosis Present; Monocytes # (auto) 0.83 K/uL (0.11-0.59); Monocytes % (auto) 8.7 %; Neutrophils # (auto) 7.81 K/uL (1.40-6.50); Neutrophils % (auto) 81.8 %; Polychromasia 1+
[2024-02-12 08:14] LABS: Albumin Globulin Ratio 1.3 (0.9-2); Albumin Level 2.8 gm/dl (3.4-5.0); BUN Creatinine Ratio 5.2 (10-20); Bilirubin,Total 0.4 mg/dl (0.2-1.0); Calcium 8.7 mg/dl (8.6-10.3); Creatinine Clr Calc Pharmacy 8.8 ml/min; Globulin 2.2 gm/dl (2.5-4.0); Magnesium 1.7 mg/dl (1.7-2.4); Phosphorus 2.6 mg/dl (2.5-4.9); Potassium 3.6 mmol/L (3.5-5.1)
--- NOTE | 2024-02-12 10:56 | Nephrology Progress Note ---
Date of Service February 12, 2024 Assessment & Plan (1) ESRD on hemodialysis: Plan: Long standing ESRD patient with Anuria. has a good Left UE AVF for access; no issues continues to appear vol depleted from Acute GI issues and poor Appetite. leukocytosis improving from 31 02/07 > 10 again today. hgb 9.7 > 10.2 -- had 4K units epo 02/09 02/09 had no UF and had gentle IVF d5nss at 60/hr. on full liquid diet still >> fluid restriction not indicated; dialysis diet not indicated at this time as K 3.7 / controlled continue to hold renvela and encourage po >>orders in for HD tomorrow > 3.25hr, no more than 500 mL UF as she's loosing lots of fluid w/ BM; will try albumin w/ tx midway; also another 4 K epo; 3K bath continue low dose midodrine w/ HD; else would not intervene specifically for hypotension care coordinated repeatedly via TText w/ Dr Frederick regarding BP, abd pain, proposed scans, po intake; we are in agreement. (2) Diverticulitis of small bowel: Plan: Reason for Admission. has Sig symptoms and very very high WBC at 31K peak on 02/07; WBC normalized now but w/ ongoing abd pain, minimal po, and ongoing disruptive diarrhea. On PO Vanco and flagyl and Ceftraizxone. All abx Can be continued. OK to proceed w/ CTA abdome/pelvis ok for any time > does not need to be timed w/ dialysis; she can tolerate dye load and has no residual renal function Admission and Anticipated Discharge Date Admission Date: February 07, 2024 Subjective breathing no worse; still poor po intake; moved bowels once loose this am; yesterday was 3 loose bm > worried she'll be unable to do OP dialysis w/ these loose bowels. still w/ abd pain; gen surg recommending CT w/ IV con to eval for mesenteric ischemia Review of Systems 2 Review of Systems: All systems reviewed & are unremarkable except as noted in Subjective Physical Exam 2 Constitutional: well developed, + thin, + frail appearing and cooperative; no acute distress lying in bed on 02NC ENMT: Mouth: + dry oral mucous membranes Respiratory: normal respiratory effort Auscultation: + diminished lung sounds Cardiovascular: Rate/Rhythm: regular rate and regular rhythm Extremities: + AV fistula; no edema Gastrointestinal (Abdomen): Inspection/Auscultation: normal bowel sounds P ercussion/Palpation: + abdomen tender (to moderate palpation periumbilical again), + guarding and abdomen soft Musculoskeletal: Extremities: strength 5/5 throughout Skin: no rashes, warm and dry Results & Data Vital Signs (Past 12 Hours) Vital Signs Temp Pulse Pulse Resp BP Pulse Ox O2 Del Method 02/12/24 07:43 36.6 C 77 18 110/70 96 Nasal Cannula 02/12/24 07:23 86 02/12/24 07:23 Nasal Cannula 02/12/24 03:20 36.6 C 84 18 93/58 L 99 Nasal Cannula 02/11/24 22:50 36.6 C 60 18 103/65 99 Nasal Cannula O2 Flow Rate 02/12/24 07:43 3 02/12/24 07:23 02/12/24 07:23 3 02/12/24 03:20 3 02/11/24 22:50 3 Laboratory Results 02/12/24 07:35 02/12/24 07:35
--- NOTE | 2024-02-12 11:32 | XRay Report ---
XR chest 1V portable HISTORY: 78 years-old Female new cough acute cough COMPARISON: 01/30/2024 TECHNIQUE: AP view of the chest FINDINGS: Cardiac silhouette is mildly enlarged. Atherosclerosis of the aorta. No pneumothorax, pleural effusio n or overt pulmonary edema. Minimal left basilar atelectasis. Bones appear grossly intact. IMPRESSION: No acute process. ACT 112: Negative or not required by law. The above report was generated using voice recognition software. It may contain grammatical, syntax o r spelling errors. Electronically signed by: Elder Osborn M.D. 02/12/2024 11:31 AM
--- NOTE | 2024-02-12 11:54 | Hospitalist Progress Note ---
Date of Service February 12, 2024 Assessment & Plan (1) Abdominal pain: (2) Diverticulitis of small bowel: (3) Enterocolitis: (4) ESRD (end stage renal disease) on dialysis: Plan This is a 78-year-old female who has a significant past medical history of chronic hypoxic respiratory failure on 3 L of O2, COPD, PAF off anticoagulation secondary to bleeding, mesenteric artery stenosis, HTN, mitral regurgitation, ESRD on HD, HLD, T2DM, secondary hyperparathyroidism, anemia and ESRD, hypogammaglobinemia and history of tobacco abuse who presents to ED secondary to abdominal pain. Recent admission 01/23 - 01/29 for near syncope. Seen and evaluated by cards. [place] possibly 2/2 labile HTN with HD, Lisinopril stopped and midodrine 3x weekly continued. She developed abd pain throughout stay and diarrhea. Stool biofire and for cdiff negative. Empirically started on oral vanco and discharged to [facility]. While at [facility] pt has been having worsening abd pain, n/v/d. Vanco increased to 250mg QID. She was borderline hypotensive and wbc climbing so sent to ED for eval. 02/12/2024: Case discussed multiple times during the day with general surgery and nephrology. General surgery requesting CTA of the abdomen pelvis given patient's persistent significant tenderness to palpation on exam. Concern for mesenteric ischemia given patient's complex medical history. Case further discussed with nephrology who advised can proceed with IV contrast for the needed CTA of the abdomen pelvis to rule out mesenteric ischemia. Later notified by nursing that patient was a "code purple" in the CT area. Patient was seen at that time by ER physician Dr. Parth Bliss who noted that she was hypotensive and in A-fib with RVR. Patient then became unresponsive and was then cardioverted at that time into sinus rhythm. she was transferred to the ICU and had a central and arterial line placed, concern for her requiring pressor support. Noted severe metabolic acidosis. She was awake and responsive to her name, eventually stating at one point that she would like to have a bowel movement. Her daughter Delphine was contacted via telephone and advised of the day's events. She later presented to bedside in room 103 in the ICU. ICU physician had extensive discussion with daughter and son-in-law at bedside explaining patient's medical course at this time and her will to live despite her chronic progressing medical conditions. Daughter notes that patient has purposely not signed a POA but did make her wishes known to her daughter that she does not want to be in the halfway and would likely not want to have surgery should the CTA of the abdomen pelvis note mesenteric ischemia. Discussion of patient's full CODE STATUS and daughter agreeing that based on patient's wishes she would want to be a DNR/DNI. Patient's daughter also agreeing to a palliative care consult to discuss goals of care further and what her future care could look like. Pt made DNR/DNI Palliative care consulted Appreciate care and recs of ICU at this time. Cardiology also consulted. She was previously treated for the following: Abdominal Pain Diverticulitis of the small bowel Possible persistent/recurrent c diff colitis Pt with significant leukocytosis >30 CT noting concern for diverticulitis stool cultures negative Repeat C. difficile testing was initially not able to be obtained before treatment. Eventually obtained on 02/10 after abx treatments and was negative NPO--> transitioned to clears on 02/09/24, full liquids on 02/10/24 and low fiber diet on 02/11/24. per nursing, patient without much intake IV zosyn switched to IV Rocephin and IV Flagyl for treatment of diverticulitis, p.o. vancomycin 500mg every 6 hours also added for treatment of likely C. difficile colitis along with IV Flagyl probiotic daily consult general surg, appreciate recs -continue with full liquids as abd still sig tender to palpation -Continue abx regimen Infectious disease consulted, appreciate recs very cautious IVF D5NSS at 50cc/hr x 24hr continue to monitor PAF Pt flipped from sinus rhythm to atrial fibrillation in the AM of 02/09 Per chart review appears that her amiodarone had not been given on 02/08/2024. However per chart review and discussion with nurses she did receive her dose on 02/08, 02/09 and 02/10 and 02/11 her heart rates are currently controlled continue amiodarone, off oral anticoagulation due to bleeding Continue to monitor on telemetry, rate has been improving Cardiology consulted, appreciate recs ESRD on HD: typically T//Tue however while at [facility] is on MWF HD on 02/07 with nephro, on board Also on 02/09 Sacral Wound Pt with stage II sacral ulcer Continue offloading as tolerated Wound consult Chronic hypoxic resp failure on 3.5L/COPD continue home inhalers Anemia of Chronic Disease hgb stable 11.4 monitor no s/sx of bleeding Chronic HFpEF, mod to severe MR volume status via HD Hx of T2DM last a1c in Mar was 5.9 5.9 on repeat this admission Diet: on full liquids, advance as tolerated DVT ppx: SQ Heparin Dispo: PT/OT for further recs once medically stable Admission and Anticipated Discharge Date Admission Date: February 07, 2024 Subjective patient was seen multiple times during the day. Initially in the a.m. was jada norwood in bed Denied acute concerns at that time, noted that she had been trying to eat but not as much Case discussed multiple times during the day with general surgery and nephrology. General surgery requesting CTA of the abdomen pelvis given patient's persistent significant tenderness to palpation on exam. Concern for mesenteric ischemia given patient's complex medical history. Case further discussed with nephrology who advised that they were in agreement with IV contrast for the needed CTA of the abdomen pelvis to rule out mesenteric ischemia. Later notified by nursing that patient was a "code purple" in the CT area. Patient was seen at that time by ER physician Dr. Parth Bliss who noted that she was hypotensive and in A-fib with RVR. Patient then became unresponsive and was then cardioverted at that time into sinus rhythm. she was transferred to the ICU and had a central and arterial line placed requiring pressor support. She was awake and responsive to her name, eventually stating at one point that she would like to have a bowel movement. Her daughter Delphine was contacted via telephone and advised of the days events. She later presented to bedside in room 103 in the ICU. ICU physician had extensive discussion with daughter and son-in-law at bedside explaining patient's medical course at this time and her will to live despite her chronic progressing medical conditions. Daughter notes that patient has purposely not signed a POA but did make her wishes known to her daughter that she does not want to be in the halfway and would not want to have surgery should the CTA of the abdomen pelvis note mesenteric ischemia. Discussion of patient's full CODE STATUS and daughter agreeing that based on patient's wishes she would want to be a DNR/DNI. Patient's daughter also agreeing to a palliative care consult to discuss goals of care further and what her future care could look like. Review of Systems Review of Systems: All systems reviewed & are unremarkable except as noted in Subjective Physical Exam Physical Exam: General: Alert Neuro: weak, moaning HEENT: NC/AT CV: Irregular Resp: Breath sounds clear bilaterally, no increased effort of breathing Abdomen: Soft, tender to palpation Lower back: stage II sacral ulcer noted in sacral area Results & Data Results & Data Vital Signs (Past 12 Hours) Vital Signs Temp Pulse Pulse Resp BP Pulse Ox O2 Del Method 02/12/24 11:37 36.6 C 96 H 20 103/57 L 96 Nasal Cannula 02/12/24 07:43 36.6 C 77 18 110/70 96 Nasal Cannula 02/12/24 07:23 86 02/12/24 07:23 Nasal Cannula 02/12/24 03:20 36.6 C 84 18 93/58 L 99 Nasal Cannula O2 Flow Rate 02/12/24 11:37 3 02/12/24 07:43 3 02/12/24 07:23 02/12/24 07:23 3 02/12/24 03:20 3 Diagnostic Findings Abdomen/Pelvis CT 02/07/24 13:22 CT OF THE ABDOMEN AND PELVIS WITHOUT CONTRAST CLINICAL HISTORY: Diffuse abdominal pain. COMPARISON STUDY: CT of the abdomen and pelvis January 26, 2024. KUB January 27, 2024. TECHNIQUE: Axial images of the abdomen and pelvis were obtained without IV contrast. Images were reviewed in the axial, sagittal, and coronal planes. Automated exposure control was utilized for the study. A dose lowering technique was utilized adhering to the principles of ALARA. FINDINGS: Evaluation of the abdomen and pelvis is suboptimal on this unenhanced exam. No pneumatosis, free air or portal venous gas is present. There is no significant biliary ductal dilatation status post cholecystectomy. Hypodense splenic lesions are unchanged from earlier exams. These are likely benign. Bilateral adrenal nodules are also unchanged and are likely benign. A cystic 2.7 cm lesion within the pancreatic tail is similar to CT of May 12, 2022. There is no peripancreatic infiltration. A partially calcified nodule along the pancreatic head remains unchanged as well. Both kidneys are markedly atrophic. There is no hydronephrosis. There is colonic diverticulosis without evidence for acute colonic diverticulitis. The small and large bowel is fluid-filled. There is no transition point. There is mild wall thickening of the transverse colon. No fluid collections are present. There are clustered small bowel loops within the lower anterior abdomen on image 203 of 377 with wall thickening and mild adjacent inflammation. Associated small bowel diverticula are likely present. There is no extraluminal gas. This finding is new since prior CT. Lytic lesions within the bilateral acetabula are unchanged in appearance since prior exam. No newly lesions are identified. IMPRESSION: 1. Fluid-filled small and large bowel with mild wall thickening of the transverse colon. The findings may reflect a nonspecific enterocolitis. No transition point to suggest a bowel obstruction. 2. Clustered small bowel loops within the lower anterior abdomen with bowel wall thickening, adjacent inflammation and associated diverticula which contain complex contents/stool. The findings raise the possibility of small bowel diverticulitis. No free air or abscess. 3. No change in appearance of multiple lytic bilateral acetabular lesion since earlier CTs dating back to May 12, 2022. These remain indeterminate. ACT 112: Negative or not required by law. Electronically signed by: Vicente Tapia M.D. 02/07/2024 3:19 PM Abdomen/Pelvis CTA 02/12/24 10:48 CT angio abdomen pelvis w con CLINICAL HISTORY: 78 years-old Female with r/o mesenteric ischemia acute mid abdominal pain COMPARISON STUDY: CT 02/07/2024, May 12, 2022. TECHNIQUE: Following the IV administration of 112 cc of Optiray, CT angiogram of the abdomen and pelvis was performed from the lung bases the proximal femora. Images are reviewed in the axial, sagittal, and coronal planes. 3-D MIPS images are created and assessed. All measurements were obtained according to NASCET criteria. IV contrast was administered without complication. A dose lowering te chnique was utilized adhering to the principles of ALARA. CT DOSE: 732.49 mGy.cm FINDINGS: CTA: Cardiomegaly with trace pericardial effusion. Extensive atherosclerosis of the abdominal aorta and branch vessels. Celiac trunk is patent with moderate multifocal stenoses of the branch vessels. There is a high-grade stenosis noted within the superior and inferior mesenteric arteries secondary to atherosclerosis. Multifocal high-grade stenoses also noted within the renal arteries. The iliac and imaged femoral arteries are patent. There is a high- grade stenosis in the profunda femoris arteries. No abdominal aortic aneurysm or dissection. CT ABDOMEN/PELVIS: Mild subsegmental left basilar atelectasis. No pneumatosis, free air or portal venous gas is present. There is no significant biliary ductal dilatation status post cholecystectomy. Hypodense splenic lesions, likely benign. Bilateral adrenal nodules are also unchanged and are likely benign. A cystic 2.7 cm lesion within the pancreatic tail is similar to CT of May 12, 2022. There is no peripancreatic infiltration. A partially calcified nodule along the pancreatic head remains unchanged as well. Both kidneys are markedly atrophic. There is no hydronephrosis. There is colonic diverticulosis without evidence for acute colonic diverticulitis. The small and large bowel is fluid-filled it appears similar to prior, again with no identifiable transition point. No fluid collections are present. Previously noted cluster small bowel loops within the lower anterior abdomen which showed wall thickening and mild adjacent inflammation no longer appreciated on today's study. No new areas of bowel wall thickening identified. There is decreased wall thickening of the transverse colon. Lytic lesions within the bilateral acetabula are unchanged in appearance since prior exam. No newly lesions are identified. IMPRESSION: 1. Atherosclerosis of the abdominal aorta without aneurysm or dissection. 2. Extensive atherosclerosis with high grade stenosis noted at the origin of the superior and inferior mesenteric and renal arteries. 3. Findings suggestive of a nonspecific enterocolitis/diarrheal illness with areas of improved wall thickening. No obstruction identified. 4. No pneumatosis or pneumoperitoneum. 5. Atrophic kidneys. 6. Unchanged lytic acetabular lesions. 7. Additional findings as above. ACT 112: Negative or not required by law. The above report was generated using voice recognition software. It may contain grammatical, syntax or spelling errors. Electronically signed by: Elder Osborn M.D. 02/12/2024 2:21 PM Chest X-Ray 02/12/24 10:48 XR chest 1V portable HISTORY: 78 years-old Female new cough acute cough COMPARISON: 01/30/2024 TECHNIQUE: AP view of the chest FINDINGS: Cardiac silhouette is mildly enlarged. Atherosclerosis of the aorta. No pneumothorax, pleural effusion or overt pulmonary edema. Minimal left basilar atelectasis. Bones appear grossly intact. IMPRESSION: No acute process. ACT 112: Negative or not required by law. The above report was generated using voice recognition software. It may contain grammatical, syntax or spelling errors. Electronically signed by: Elder Osborn M.D. 02/12/2024 11:31 AM Chest X-Ray 02/12/24 13:37 XR chest 1V portable HISTORY: 78 years-old Female Central Line Placement COMPARISON: 02/12/2024 TECHNIQUE: AP view the chest FINDINGS: Cardiomediastinal and hilar silhouettes are unchanged. Right IJ central venous catheter distal tip noted in the expected location of the upper SVC. No pneumothorax, pleural effusion or airspace consolidation. The bones appear intact. IMPRESSION: Status post placement of a right IJ central venous catheter. No postprocedural pneumothorax. ACT 112: Negative or not required by law. The above report was generated using voice recognition software. It may contain grammatical, syntax or spelling errors. Electronically signed by: Elder Osborn M.D. 02/12/2024 2:02 PM
[2024-02-12] MEDS: OPTIRAY 320 125ml IV ONE (12:31)
[2024-02-12] MEDS: PHENYLEPHRINE HCL 25 MG/250 ML NSS IV ONE (13:00)
--- NOTE | 2024-02-12 13:38 | Procedure Note ---
Procedure Note Date of Service February 12, 2024 Note Responded to the patient who was a code purple in CT. Went and assessed the patient due to her close proximity to the emergency department. Patient evidently had unresponsive episode after completing abdominal CT with contrast. Patient had some shaking and agonal breathing. Upon arrival patient seated in wheelchair next to CT scanner. She is on chronic 3 L of oxygen evidently is a history of dialysis and diabetes. Gurney obtained. Patient was shifted onto the stretcher. Patient's bedside nurse confirms the patient is a full code. Patient with a faint pulse and some agonal breathing. Placed on monitor. Blood sugar 120. Hypotensive blood pressure in the 70s systolic art rate in the 150s on the monitor what appears to be rapid A-fib. As she is hypotensive and minimally responsive proceed with synchronized electrical cardioversion 200 J. Patient transition to a sinus rhythm in the ~100s. Still with carotid pulse but mental status minimal. Staff has made the patient's team aware of the patient's sudden decline. Given her critical status proceeded from CT to the ICU for further stabilization purposes. EKG in the ICU confirms sinus tachycardia. In the ICU care assumed by battery vent plug inserter Dr. Asif. Patient's primary team available at bedside as well. ICU proceeded with stabilization with initiation of vasopressors. Procedure electrical cardioversion: Emergent procedure given patient's critical nature Performed by myself. Indication hypotensive and rapid A-fib No sedation as the patient's unresponsive here. Synchronized cardioversion 200 J 1 shock applied with conversion of the patient from rapid A-fib to sinus rhythm/sinus tachycardia on review of the monitor. Patient's blood pressure remains hypotensive. No obvious complications. Coding
[2024-02-12 13:39] LABS: iSTAT Art Bld Gas pCO2 Correct 56 mmHg (35-46); iSTAT Art Bld Gas pH Corrected 7.099 (7.35-7.45); iSTAT Arterial Blood Gas HCO3 18 meg/L (19-24); iSTAT Arterial Blood Gas pCO2 56 mmHg (35-46); iSTAT Arterial Blood Gas pO2 229 mmHg (80-95); iSTAT Arterial Blood Gas pO2 C 229; iSTAT Carbon Dioxide 19 mmol/L (24-31); iSTAT FiO2 100 %; iSTAT Hematocrit 38 % (37-47); iSTAT Hemoglobin 12.9 g/dl (12.0-16.0); iSTAT Potassium 3.8 mmol/L (3.3-5.0); iSTAT Sample Type Arterial; iSTAT Site Art Line; iSTAT Sodium 139 mmol/L (135-144)
--- NOTE | 2024-02-12 13:50 | Procedure Note ---
Procedure Note Date of Service February 12, 2024 Procedure date: Noted above Procedure: Central venous access Pre-procedure indication: Need for vasoactive medication administration Post-procedure Diagnosis: same as above Prior to Procedure: Informed Consent: Emergent consent implied. Attending Staff: Rizwana Asif DO Resident/APC: Not applicable Skin Prep: Chlorhexidine Anesthesia: 4 mL 1% lidocaine without epinephrine The identity of the patient was confirmed and a bedside time out was performed. Description of Procedure: After sterile prep and sterile drape utilizing standard sterile technique the superficial skin of the right internal jugular area was anesthetized. The target vessel was identified and entered with an 18- gauge needle. Dark venous blood return was noted. A guidewire was inserted through the needle and into the vessel. The needle was withdrawn and a skin terrence was made. A tissue dilator was advanced via Seldinger technique and removed. A triple lumen catheter was inserted via Seldinger technique and the guidewire removed. All ports tico and flushed easily. A Biopatch was placed, and the catheter was secured via silk suture. A sterile dressing was then applied. Complications: None Estimated blood loss: Trace Patient tolerated the procedure well. Procedure Date: Noted Above Procedure: Procedural Ultrasound Indication: Central venous access Attending: Rizwana Asif DO Resident/Physician Driving Teacher: Not applicable Artery visualized: Yes Vein visualized: Yes Compressible Vein: Yes Vein patent: Yes Guidewire or Short Catheter seen in vein prior to dilation: Yes Line confirmed in Vein with ultrasound: Yes Lung Sliding on side of attempt (if applicable): NA If no lung sliding or not obtained has CXR been ordered: Yes Impression: Successful central venous access placement [facility] [place] Procedure Codes (Charges) Tubes, Drains, and Vasc Access Procedure 1: Tubes, Drains, and Vasc Access: [id number] Insertion Of Non-tunneled Catheter Age 7 Yrs> Coding CPT Codes Tubes, Drains, and Vasc Access - Tubes, Drains, and Vasc Access: [id number] Insertion Of Non-tunneled Catheter Age 7 Yrs> ([id number]) Additional Codes Date of Service (PG.SURGERY)
--- NOTE | 2024-02-12 13:53 | Procedure Note ---
Procedure Note Date of Service February 12, 2024 Procedure date: Noted above Procedure: Right femoral artery cannulation Pre-procedure Diagnosis: Need for invasive monitoring, hypotension, shock Post-procedure Diagnosis: same as above Prior to Procedure: Informed Consent: Emergent consent implied. Attending Staff: Rizwana Asif DO Skin Prep: Chlorhexidine Anesthesia: None The identity of the patient was confirmed and a bedside time out was performed. Description of Procedure: After sterile prep and sterile drape utilizing standard sterile technique the superficial skin of the right femoral artery was anesthetized. The target artery was identified via palpation and entered with a 20-gauge needle. Pulsatile blood return was noted. Via modified Seldinger technique the guidewire was advanced and the Angiocath advanced over the guidewire. The guidewire was removed and brisk arterial blood return was noted. The pressure monitor was connected, and the arterial line was secured via silk suture. A sterile dressing was then applied. Complications: None Estimated blood loss: Trace Patient tolerated the procedure well. [facility] [place] Procedure Codes (Charges) Tubes, Drains, and Vasc Access Procedure 1: Tubes, Drains, and Vasc Access: [id number] Arterial Cath/Cannulation Sampling/Monitoring/Transfusion Coding CPT Codes Tubes, Drains, and Vasc Access - Tubes, Drains, and Vasc Access: [id number] Arterial Cath/Cannulation Sampling/Monitoring/Transfusion ([id number]) Additional Codes Date of Service (PG.SURGERY)
[2024-02-12 13:59] LABS: Hematocrit (blood only) 28.8 % (37.0-47.0); Mean Corpuscular Hemoglobin 38.6 pg (25.0-34.0); Mean Corpuscular Hgb Conc 31.3 g/dL (32.0-36.0); Mean Corpuscular Volume 123.6 fL (80.0-100.0); Mean Platelet Volume 11.7 fL (9.4-12.4); Nucleated RBC # (auto) 0.03 K/uL (0.00-0.12); Nucleated RBC % (auto) 0.1 %; Platelet Count 141 K/uL (130-400); RDW Coefficient of Variation 13.8 % (11.5-14.5); RDW Standard Deviation 62.7 fL (36.4-46.3); Red Blood Count 2.33 M/uL (4.20-5.40); White Blood Count 27.86 K/ul (4.8-10.8)
--- NOTE | 2024-02-12 14:03 | XRay Report ---
XR chest 1V portable HISTORY: 78 years-old Female Central Line Placement COMPARISON: 02/12/2024 TECHNIQUE: AP view the chest FINDINGS: Cardiomediastinal and hilar silhouettes are unchanged. Right IJ central venous catheter distal tip no henry in the expected location of the upper SVC. No pneumothorax, pleural effusion or airspace consolid ation. The bones appear intact. IMPRESSION: Status post placement of a right IJ central venous catheter. No postprocedural pneumothor ax. ACT 112: Negative or not required by law. The above report was generated using voice recognition software. It may contain grammatical, syntax o r spelling errors. Electronically signed by: Elder Osborn M.D. 02/12/2024 2:02 PM
--- NOTE | 2024-02-12 14:05 | Critical Care Consultation ---
Date of Consultation February 12, 2024 Assessment & Plan (1) Atrial fibrillation with rapid ventricular response: Reason Critically Ill: 78-year-old female with A-fib and rapid ventricular response and period of acute encephalopathy. PLAN: Neuro: Acute encephalopathy: Improving -Suspect related to hypotension secondary to inability to tolerate atrial fibrillation with rapid ventricular response. Resp: Adequate oxygenation, tachypnea to compensate for chronic metabolic high gap acidosis related to end-stage renal disease - [] CV: Hypotension: Poor cardiac reserve -Stat bedside echo being obtained -Cardioversion x 1 200 J into normal sinus rhythm Fluids/Renal: Acute on chronic high gap metabolic acidosis secondary to end-stage renal disease -Mild respiratory acidosis component during code purple ID: Diverticulitis -Being filed by infectious disease: Ceftriaxone 2 g every 24 hours, Flagyl 500 mg every 8 hours GI/Nutrition: Abdominal pain -Being evaluated by general surgery for possible mesenteric ischemia -CTA of abdomen pending Heme: Anemia of chronic disease -Type and screen DVT prophylaxis: Heparin 5000 units every 8 hours Endocrine: ICU hyperglycemia protocol Vascular access: Right internal jugular CVC placed 02/11, right femoral arterial line placed 02/11 Code Status: [] Disposition: ICU given vasoactive medication requirement. Discussed with patient's daughter who is only child. Patient's daughter reports she has purposely not filled out a power of erisa attorney nor living well as she has given her daughter her wishes and desires her to execute them. We discussed risks and benefits of CPR and event of cardiac arrest daughter and son in agreement that she would not want heroic measures undertaken therefore we will update her CODE STATUS to reflect DO NOT RESUSCITATE in event of cardiac arrest. Patient is fiercely independent and they feel living in a senior care would be very against her longstanding wishes. We discussed possibility of palliative care consultation for possible palliative services. Patient has been on hemodialysis since 2012. I feel she has very limited cardiac reserve. Her hospitalizations have kind of been increasing and she is losing some functional status. I do believe her life expectancy would be 3 months or less. We will consult palliative care. We are continuing our current level of treatment at this time. Patient's daughter and son-in-law also state that she would not want major abdominal surgery, if there is active mesenteric ischemia and she cannot support her nutritional metabolic demands a hospice consult with expectant management may be required. (2) Metabolic acidosis with increased anion gap and accumulation of organic acids: (3) ESRD on dialysis: (4) Abdominal pain: (5) Diverticulitis: (6) Labile hypertension: Supervising Physician Co-Signing Physician Notes I have personally spent 95 minutes of critical care time in the direct management of this patient. This is a life/limb threatening event. This includes time spent evaluating patient, direct bedside care, chart review, placing orders, interpretation of diagnostic studies, discussion with consultants, patient, and/or family members regarding treatment decisions, as well as other required patient management activities. This time is exclusive of all separately billable procedures, and teaching time and separate from and in addition to any other critical care service time. History of Present Illness Reason for Consultation: Charlene gotti Attending Physician: Aziza Frederick MD History of Present Illness Patient is a 78-year-old female significant past medical history of end-stage renal disease on hemodialysis who was an inpatient at the hospital with a working diagnosis of possible diverticulitis, C. difficile PCR is negative. There was concern for possible mesenteric ischemia and the patient was undergoing a CTA scan of the abdomen. During the CT scan the patient became unresponsive had some shaking episodes. A charlene gotti was called from the responding ED physician there was a report that the patient was in atrial fibrillation with rapid ventricular response she received 1 cardioversion at 200 J which was successful at discontinuing the rapid ventricular response. She was transferred over to the ICU for further stabilization and optimization. During my evaluation the patient was largely unresponsive and hypotensive. She is a very frail appearing. I was concerned that intubation may lead to cardiac arrest so she was [id number]. I was able to emergently place an right femoral arterial line to better accurately determine her blood pressures. She did require some vasoactive medications I gave her 1 unit of vasopressin twice and phenylephrine infusion was started with tube had an appropriate response and are now weaning. Given the need for vasoactive's I placed an emergent central venous access as there was question whether she had adequate IV access and whether the IVs had infiltrated. During the continuous bedside monitoring patient's mental status improved and she became more able to breathe on her own eventually were able to discontinue the [id number] assist. The hospitalist team was attempting to contact the daughter who presented to bedside. Allergies Allergy/AdvReac Type Severity Reaction Status Date / Time chlorhexidine Allergy Intermediate ITCHING Verified 05/24/23 14:59 Home Medications Medication Instructions Recorded Confirmed Type ipratropium 0.5 mg-albuterol 3 mg 3 ml inhalation QID PRN Shortness 09/26/18 02/07/24 History (2.5 mg base)/3 mL nebulization Of Breath soln vitamin B complex-vitamin C-folic 1 tab PO QAM 09/26/18 02/07/24 History acid 0.8 mg tablet (Arabella-Tika) fluticasone propionate 50 2 spray intranasal HS 01/18/19 02/07/24 History mcg/actuation nasal spray,suspension albuterol sulfate 90 mcg/actuation 2 puff inhalation Q4H PRN Wheezing 04/05/19 02/07/24 History aerosol inhaler acetaminophen 325 mg tablet 650 mg PO Q6H PRN Pain 04/14/21 02/07/24 History (Tylenol) camphor-menthol 0.5 %-0.5 % lotion 1 applic topical DIRECTED PRN 04/14/21 02/07/24 History Itching epoetin gabriel 10,000 unit/mL 0 unit IV DIRECTED 04/14/21 02/07/24 History injection solution (Procrit) lidocaine-prilocaine 2.5 %-2.5 % 1 applic topical DIRECTED PRN 04/14/21 02/07/24 History topical cream PRIOR TO DIALYSIS loperamide 2 mg capsule (Imodium 2 mg PO QID PRN Diarrhea 04/14/21 02/07/24 History A-D) valacyclovir 1 gram tablet 1,000 mg PO QAM 04/14/21 02/07/24 History fluorometholone 0.1 % eye 1 drp OPL QA 01/25/22 02/07/24 History drops,suspension amiodarone 200 mg tablet 200 mg PO DAILY 30 days #60 tabs 05/12/22 02/07/24 Rx docusate sodium 100 mg capsule 100 mg PO BID PRN Constipation 04/01/23 02/07/24 History (Colace) fluticasone furoate 200 1 inh inhalation DAILY 04/01/23 02/07/24 History mcg-vilanterol 25 mcg/dose inhalation powder (Breo Ellipta) midodrine 2.5 mg tablet 2.5 mg PO 3XWK 12/31/23 02/07/24 History lanthanum 500 mg chewable tablet 500 mg PO UD 01/24/24 02/07/24 History sevelamer carbonate 800 mg tablet 1,600 mg PO UD 01/24/24 02/07/24 History (Renvela) vancomycin 1,000 mg intravenous 250 mg PO Q6 02/07/24 02/07/24 History injection Patient History Medical History ESRD (end stage renal disease) on dialysis follows with Dr. Reed; Hillary Corley Sat - [facility] (since 02/2013) On home oxygen therapy 3 LPM cont History of colon polyps Tobacco use History of GI bleed Renal cyst H/O cardiovascular stress test "05/2013 - negative for ischemia" Pancreatic cyst Obesity Psoriasis Adrenal adenoma Surgical History History of surgery AVF creation History of intestinal surgery Family History Father Myocardial infarction, Onset Age: 64 Diabetes Mother , 87 Alzheimer disease Brother Diabetes Other No family history of adverse response to anesthesia Social History Smoking Status: Current every day smoker Tobacco Type: Cigarettes Cigarettes Per Day: 3; Second Hand Exposure: Yes; Do You Dip or Chew Tobacco: No; Hx Alcohol Use: No Hx Substance Use: No Preferred Language: Tristanian Communication Ability: Effective 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 Beliefs That Will Affect Care: None marital status: / Current Living Situation: Alone current occupational status: retired How many Children do You have: 1 Feels Safe at Home: Yes Safety Concerns: Feels Safe At This Time Assistive Devices: Oxygen - Continuous, Walker and Other Results & Data Results & Data Vital Signs (Past 12 Hours) Vital Signs Temp Pulse Pulse Resp BP Pulse Ox O2 Del Method 02/12/24 11:37 36.6 C 96 H 20 103/57 L 96 Nasal Cannula 02/12/24 07:43 36.6 C 77 18 110/70 96 Nasal Cannula 02/12/24 07:23 86 02/12/24 07:23 Nasal Cannula 02/12/24 03:20 36.6 C 84 18 93/58 L 99 Nasal Cannula O2 Flow Rate 02/12/24 11:37 3 02/12/24 07:43 3 02/12/24 07:23 02/12/24 07:23 3 02/12/24 03:20 3 Critical Care Results & Data Vital Signs (Past 12 Hours) Vital Signs Temp Pulse Pulse Resp BP Pulse Ox O2 Del Method 02/12/24 11:37 36.6 C 96 H 20 103/57 L 96 Nasal Cannula 02/12/24 07:43 36.6 C 77 18 110/70 96 Nasal Cannula 02/12/24 07:23 86 02/12/24 07:23 Nasal Cannula 02/12/24 03:20 36.6 C 84 18 93/58 L 99 Nasal Cannula O2 Flow Rate 02/12/24 11:37 3 02/12/24 07:43 3 02/12/24 07:23 02/12/24 07:23 3 02/12/24 03:20 3 Lab & Micro Results (Past 24 Hours) RBC 2.33 M/uL (4.20-5.40) L 02/12/24 WBC 27.86 K/ul (4.8-10.8) H 02/12/24 Hgb 9.0 g/dl (12.0-16.0) L 02/12/24 Hct 28.8 % (37.0-47.0) L 02/12/24 MCV 123.6 fL (80.0-100.0) H 02/12/24 MCH 38.6 pg (25.0-34.0) H 02/12/24 MCHC 31.3 g/dL (32.0-36.0) L 02/12/24 RDW Standard Deviation 62.7 fL (36.4-46.3) H 02/12/24 RDW Coefficient of Variation 13.8 % (11.5-14.5) 02/12/24 Plt Count 141 K/uL (130-400) 02/12/24 MPV 11.7 fL (9.4-12.4) 02/12/24 Nucleated Red Blood Cells % (auto) 0.1 % 02/11 Nucleated RBC Absolute Count (auto) 0.03 K/uL (0.00-0.12) 1 04/13/23 Neutrophils (%) (Auto) 82.2 % 02/12/24 Lymphocytes (%) (Auto) 6.8 % 02/12/24 Monocytes # (Auto) 0.95 K/uL (0.11-0.59) H 02/12/24 Eosinophils # (Auto) 0.07 K/uL (0.00-0.50) 02/12/24 Immature Granulocyte % (Auto) 6.8 % 02/12/24 Neutrophils # (Auto) 22.90 K/uL (1.40-6.50) H 02/12/24 Lymphocytes # (Auto) 1.89 K/uL (1.20-3.40) 02/12/24 Monocytes # (Auto) 0.95 K/uL (0.11-0.59) H 02/12/24 Eosinophils # (Auto) 0.07 K/uL (0.00-0.50) 02/12/24 Basophils # (Auto) 0.15 K/uL (0.00-0.20) 02/12/24 Immature Granulocyte # (Auto) 1.90 K/uL (0.01-0.20) H 02/11 Polychromasia 1+ 02/12/24 Echinocytes 1+ 02/12/24 Macrocytosis Present 02/12/24 Na 142 mmol/L (136-145) 02/12/24 K 3.6 mmol/L (3.5-5.1) 02/12/24 Cl 106 mmol/L (98-107) 02/12/24 CO2 28 mmol/L (21-32) 02/12/24 Anion Gap 8 (3-11) 02/12/24 BUN 29 mg/dl (6-23) H 02/12/24 Creatinine 5.57 mg/dl (0.6-1.2) H* 02/12/24 BUN/Creatinine Ratio 5.2 (10-20) L 02/12/24 Glu 121 mg/dl (70-99(Fasting)) H 02/12/24 Ca 8.7 mg/dl (8.6-10.3) 02/12/24 Phosphorus Level 2.6 mg/dl (2.5-4.9) 02/12/24 Total Bilirubin 0.4 mg/dl (0.2-1.0) 02/12/24 AST 16 U/L (13-39) 02/12/24 ALT 13 U/L (7-52) 02/12/24 Alkaline Phosphatase 81 U/L (34-104) 02/12/24 TP 5.0 gm/dl (6.0-8.3) L 02/12/24 Albumin 2.8 gm/dl (3.4-5.0) L 02/12/24 Globulin 2.2 gm/dl (2.5-4.0) L 02/12/24 Albumin/Globulin Ratio 1.3 (0.9-2) 02/12/24 Mg 1.7 mg/dl (1.7-2.4) 02/12/24 07:35 Calcium Level 8.7 mg/dl (8.6-10.3) 02/12/24 07:35 Dar Test NA 02/12/24 13:25 Diagnostic Findings (Past 24 Hours) Chest X-Ray 02/12/24 10:48 XR chest 1V portable HISTORY: 78 years-old Female new cough acute cough COMPARISON: 01/30/2024 TECHNIQUE: AP view of the chest FINDINGS: Cardiac silhouette is mildly enlarged. Atherosclerosis of the aorta. No pneumothorax, pleural effusion or overt pulmonary edema. Minimal left basilar atelectasis. Bones appear grossly intact. IMPRESSION: No acute process. ACT 112: Negative or not required by law. The above report was generated using voice recognition software. It may contain grammatical, syntax or spelling errors. Electronically signed by: Elder Osborn M.D. 02/12/2024 11:31 AM I & O Totals 24 Hours 02/11/24 02/12/24 02/13/24 06:59 06:59 06:59 Intake Total 1610 / 1610 960 / 960 150 / 150 Output Total Balance 1609 / 1609 959 / 959 150 / 150 Cumulative 02/07/24 12:16 thru 02/12/24 10:40 Intake Total 5420.000 Output Total 7 Balance 5413.000 RT Ventilator Mngmt (Last Documented) Ventilator Ordered Settings Respiratory Rate 20 02/12/24 11:37 Ventilator - PT Measurements Respiratory Rate 20 Coding Level of Care Code 43859 CRITICAL CARE 1ST 30-74M Additional Critical Care Time Additional 30min Critical Care Time: Yes - 50568 Diagnoses Atrial fibrillation with rapid ventricular response I48.91 Metabolic acidosis with increased anion gap and accumulation of organic acids E87.20 ESRD on dialysis N18.6; Z99.2 Abdominal pain R10.84 Abdominal location: generalized Diverticulitis K57.92 Labile hypertension R09.89 Additional Codes Critical Care Time - Additional 30min Critical Care Time: Yes - 79309 ([id number]) (4) Abdominal pain Abdominal location: generalized Qualified Code(s): R10.84 - Generalized abdominal pain
[2024-02-12 14:16] LABS: Basophils # (auto) 0.15 K/uL (0.00-0.20); Basophils % (auto) 0.5 %; Echinocytes 1+; Eosinophils # (auto) 0.07 K/uL (0.00-0.50); Eosinophils % (auto) 0.3 %; Immature Granulocytes % (auto) 6.8 %; Lymphocytes # (auto) 1.89 K/uL (1.20-3.40); Lymphocytes % (auto) 6.8 %; Monocytes # (auto) 0.95 K/uL (0.11-0.59); Monocytes % (auto) 3.4 %; Neutrophils % (auto) 82.2 %; Polychromasia 1+
--- NOTE | 2024-02-12 14:23 | CT Scan Report ---
CT angio abdomen pelvis w con CLINICAL HISTORY: 78 years-old Female with r/o mesenteric ischemia acute mid abdominal pain COMPARISON STUDY: CT 02/07/2024, May 12, 2022. TECHNIQUE: Following the IV administration of 112 cc of Optiray, CT angiogram of the abdomen and pelv is was performed from the lung bases the proximal femora. Images are reviewed in the axial, sagittal, and coronal planes. 3-D MIPS images are created and assessed. All measurements were obtained accordi ng to NASCET criteria. IV contrast was administered without complication. A dose lowering technique was utilized adhering to the principles of ALARA. CT DOSE: 732.49 mGy.cm FINDINGS: CTA: Cardiomegaly with trace pericardial effusion. Extensive atherosclerosis of the abdominal aorta a nd branch vessels. Celiac trunk is patent with moderate multifocal stenoses of the branch vessels. Th ere is a high-grade stenosis noted within the superior and inferior mesenteric arteries secondary to atherosclerosis. Multifocal high-grade stenoses also noted within the renal arteries. The iliac and i rebecca femoral arteries are patent. There is a high-grade stenosis in the profunda femoris arteries. N o abdominal aortic aneurysm or dissection. CT ABDOMEN/PELVIS: Mild subsegmental left basilar atelectasis. No pneumatosis, free air or portal [place] ous gas is present. There is no significant biliary ductal dilatation status post cholecystectomy. Hy podense splenic lesions, likely benign. Bilateral adrenal nodules are also unchanged and are likely b enign. A cystic 2.7 cm lesion within the pancreatic tail is similar to CT of May 12, 2022. There is no peripancreatic infiltration. A partially calcified nodule along the pancreatic head remains un changed as well. Both kidneys are markedly atrophic. There is no hydronephrosis. There is colonic diverticulosis witho ut evidence for acute colonic diverticulitis. The small and large bowel is fluid-filled it appears si milar to prior, again with no identifiable transition point. No fluid collections are present. Previo usly noted cluster small bowel loops within the lower anterior abdomen which showed wall thickening a nd mild adjacent inflammation no longer appreciated on today's study. No new areas of bowel wall thic kening identified. There is decreased wall thickening of the transverse colon. Lytic lesions within the bilateral acetabula are unchanged in appearance since prior exam. No newly l esions are identified. IMPRESSION: 1. Atherosclerosis of the abdominal aorta without aneurysm or dissection. 2. Extensive atherosclerosis with high grade stenosis noted at the origin of the superior and inferio r mesenteric and renal arteries. 3. Findings suggestive of a nonspecific enterocolitis/diarrheal illness with areas of improved wall t hickening. No obstruction identified. 4. No pneumatosis or pneumoperitoneum. 5. Atrophic kidneys. 6. Unchanged lytic acetabular lesions. 7. Additional findings as above. ACT 112: Negative or not required by law. The above report was generated using voice recognition software. It may contain grammatical, syntax o r spelling errors. Electronically signed by: Eldre Osborn M.D. 02/12/2024 2:21 PM
[2024-02-12 14:25] LABS: Alanine Aminotransferase 10 U/L (7-52); Albumin Level 1.6 gm/dl (3.4-5.0); Alkaline Phosphatase 63 U/L (34-104); Anion Gap 12 (3-11); Aspartate Aminotransferase 16 U/L (13-39); BUN Creatinine Ratio 5.8 (10-20); Bilirubin,Total 0.2 mg/dl (0.2-1.0); Blood Urea Nitrogen 22 mg/dl (6-23); Calcium 5.4 mg/dl (8.6-10.3); Carbon Dioxide 12 mmol/L (21-32); Chloride 119 mmol/L (98-107); Glucose 178 mg/dl (70-99(Fasting)); Magnesium 1.1 mg/dl (1.7-2.4); Phosphorus 2.6 mg/dl (2.5-4.9); Potassium 2.5 mmol/L (3.5-5.1); Sodium 143 mmol/L (136-145); Total Protein < 3.0 gm/dl (6.0-8.3)
[2024-02-12] MEDS: RAPID SEQUENCE INDUCTION BAG ONE (15:18)
--- NOTE | 2024-02-12 15:43 | Cardiology Consultation ---
Date of Consultation February 12, 2024 Assessment & Plan (1) Paroxysmal atrial fibrillation: (2) ESRD (end stage renal disease) on dialysis: (3) Chronic respiratory failure with hypoxia: Plan 78-year-old female readmitted with poor p.o. intake, nausea, vomiting, diarrhea, and abdominal pain. Patient unresponsive followed ct scan, undergoing cardioversion of atrial fibrillation (present since February 10, 2024) back to sinus rhythm. History and examination suggest hypovolemia. Consider fluid resuscitation. Continue amiodarone. Prognosis appear grim. Supervising Physician Co-Signing Physician Notes I spent a total of 50 minutes on the date of service in preparation, delivery, and documentation of the care provided to this patient, excluding any time spent in the performance of separately billed services. I have personally performed a history and physical examination on the patient. I have reviewed the advance practitioner's documentation, and I agree with, and take responsibility for the plan of care. History of Present Illness Reason for Consultation: Atrial fibrillation, unresponsive requiring shock Requesting Physician: Dr. Aziza Frederick MD Attending Physician: Dr. Aziza Frederick MD History of Present Illness Ms. Flaquita Velasco is a complex 78-year-old female who was evaluated earlier this afternoon at the request of Dr. Frederick secondary to atrial fibrillation, unresponsive episode requiring cardioversion. Patient initially admitted to the hospital February 07, 2024 with diffuse abdominal pain, poor p.o. intake, nausea, vomiting, and diarrhea. Due to concern for possible mesenteric ischemia patient underwent CT scan of the abdomen with IV contrast. After the CT scan the patient was observed to be unresponsive and shaking. A code purple was called. The patient was noted to be hypotensive and in atrial fibrillation with a rapid ventricular response, undergoing cardioversion by ER physician with return to sinus rhythm. Patient transferred to the ICU for further management. Family at bedside. Limited resting echocardiography obtained revealed normal RV and LV function, EF 55 to 60%. At least moderate mitral regurgitation observed. There was a mobile echodensity attached to the posterior leaflet that was also observed on prior echocardiogram, possible focal calcification. Small anterior loculated pericardial effusion observed without evidence of cardiac tamponade. Review of the patient's continuous nursing home aide reveals sinus rhythm until February 10, 2024 at which time she lapsed into atrial fibrillation with a rapid ventricular response. Problems: Paroxysmal atrial fibrillation. Prescribed amiodarone. Risks of anticoagulation felt to be greater than the benefit Known focal calcification of the posterior mitral valve leaflet with moderate to severe mitral regurgitation. Medical management/conservative therapy requested and recommended. End-stage kidney disease on hemodialysis Prior GI bleeding requiring transfusions of PRBC's, no longer on anticoagulation therapy. Anemia of chronic disease, monitored by Nephrology, Type II diabetes mellitus COPD requiring supplemental oxygen, with chronic ongoing tobacco abuse. Hypertension - controlled Dyslipidemia Allergies Allergy/AdvReac Type Severity Reaction Status Date / Time chlorhexidine Allergy Intermediate ITCHING Verified 05/24/23 14:59 Home Medications Medication Instructions Recorded Confirmed Type ipratropium 0.5 mg-albuterol 3 mg 3 ml inhalation QID PRN Shortness 09/26/18 02/07/24 History (2.5 mg base)/3 mL nebulization Of Breath soln vitamin B complex-vitamin C-folic 1 tab PO QAM 09/26/18 02/07/24 History acid 0.8 mg tablet (Arabella-Tika) fluticasone propionate 50 2 spray intranasal HS 01/18/19 02/07/24 History mcg/actuation nasal spray,suspension albuterol sulfate 90 mcg/actuation 2 puff inhalation Q4H PRN Wheezing 04/05/19 02/07/24 History aerosol inhaler acetaminophen 325 mg tablet 650 mg PO Q6H PRN Pain 04/14/21 02/07/24 History (Tylenol) camphor-menthol 0.5 %-0.5 % lotion 1 applic topical DIRECTED PRN 04/14/21 02/07/24 History Itching epoetin gabriel 10,000 unit/mL 0 unit IV DIRECTED 04/14/21 02/07/24 History injection solution (Procrit) lidocaine-prilocaine 2.5 %-2.5 % 1 applic topical DIRECTED PRN 04/14/21 02/07/24 History topical cream PRIOR TO DIALYSIS loperamide 2 mg capsule (Imodium 2 mg PO QID PRN Diarrhea 04/14/21 02/07/24 History A-D) valacyclovir 1 gram tablet 1,000 mg PO QAM 04/14/21 02/07/24 History fluorometholone 0.1 % eye 1 drp OPL QAM 01/25/22 02/07/24 History drops,suspension amiodarone 200 mg tablet 200 mg PO DAILY 30 days #60 tabs 05/12/22 02/07/24 Rx docusate sodium 100 mg capsule 100 mg PO BID PRN Constipation 04/01/23 02/07/24 History (Colace) fluticasone furoate 200 1 inh inhalation DAILY 04/01/23 02/07/24 History mcg-vilanterol 25 mcg/dose inhalation powder (Breo Ellipta) midodrine 2.5 mg tablet 2.5 mg PO 3XWK 12/31/23 02/07/24 History lanthanum 500 mg chewable tablet 500 mg PO UD 01/24/24 02/07/24 History sevelamer carbonate 800 mg tablet 1,600 mg PO UD 01/24/24 02/07/24 History (Renvela) vancomycin 1,000 mg intravenous 250 mg PO Q6 02/07/24 02/07/24 History injection Patient History Medical History ESRD (end stage renal disease) on dialysis follows with Dr. Reed; Hillary Corley Sat - [facility] (since 02/2013) On home oxygen therapy 3 LPM cont History of colon polyps Tobacco use History of GI bleed Renal cyst H/O cardiovascular stress test "05/2013 - negative for ischemia" Pancreatic cyst Obesity Psoriasis Adrenal adenoma Surgical History History of surgery AVF creation History of intestinal surgery Family History Father Myocardial infarction, Onset Age: 64 Diabetes Mother , 87 Alzheimer disease Brother Diabetes Other No family history of adverse response to anesthesia Social History Smoking Status: Current every day smoker Tobacco Type: Cigarettes Cigarettes Per Day: 3; Second Hand Exposure: Yes; Do You Dip or Chew Tobacco: No; Hx Alcohol Use: No Hx Substance Use: No Preferred Language: Gambian Communication Ability: Effective Natural Sciences Professor 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 Beliefs That Will Affect Care: None marital status: / Current Living Situation: Alone current occupational status: retired How many Children do You have: 1 Feels Safe at Home: Yes Safety Concerns: Feels Safe At This Time Assistive Devices: Oxygen - Continuous, Walker and Other Review of Systems Review of Systems: Unable to be obtained Physical Exam Physical Exam: General: Comfortable. Family at bedside. HENT: Normocephalic. Neck: Limited, right internal jugular catheter, flat Heart: Regular 84 bpm. Systolic murmur. No rub. Lungs: Clear anteriorly. Abdomen: +BS. No bruits. Extremities: No edema. Results & Data Vital Signs (Past 12 Hours) Vital Signs Temp Pulse Pulse Resp BP Pulse Ox O2 Del Method 02/12/24 11:37 36.6 C 96 H 20 103/57 L 96 Nasal Cannula 02/12/24 07:43 36.6 C 77 18 110/70 96 Nasal Cannula 02/12/24 07:23 86 02/12/24 07:23 Nasal Cannula O2 Flow Rate 02/12/24 11:37 3 02/12/24 07:43 3 02/12/24 07:23 02/12/24 07:23 3 Laboratory Results Cardiac Enzymes 02/12/24 02/12/24 Range/Units 07:35 13:46 AST 16 16 (13-39) U/L CBC 02/12/24 02/12/24 Range/Units 07:35 13:46 WBC 9.55 27.86 H D (4.8-10.8) K/ul RBC 2.67 L 2.33 L (4.20-5.40) M/uL Hgb 10.2 L 9.0 L (12.0-16.0) g/dl Hct 32.2 L 28.8 L (37.0-47.0) % Plt Count 102 L 141 (130-400) K/uL Neut # (Auto) 7.81 H 22.90 H (1.40-6.50) K/uL Lymph # (Auto) 0.57 L 1.89 (1.20-3.40) K/uL [place] # (Auto) 0.83 H 0.95 H (0.11-0.59) K/uL Eos # (Auto) 0.05 0.07 (0.00-0.50) K/uL Baso # (Auto) 0.06 0.15 (0.00-0.20) K/uL Comprehensive Metabolic Panel 02/12/24 02/12/2402/11/24 Range/Units 07:35 13:46 14:36 Sodium 142 143 (136-145) mmol/L Potassium 3.6 2.5 L* D 2.1 L* (3.5-5.1) mmol/L Chloride 106 119 H (98-107) mmol/L Carbon Dioxide 28 12 L (21-32) mmol/L BUN 29 H 22 (6-23) mg/dl Creatinine 5.57 H* D 3.79 H D (0.6-1.2) mg/dl Glucose 121 H 178 H (70-99(Fasting)) mg/dl Calcium 8.7 5.4 L* D (8.6-10.3) mg/dl AST 16 16 (13-39) U/L ALT 13 10 (7-52) U/L Alkaline Phosphatase 81 63 (34-104) U/L Total Protein 5.0 L < 3.0 L D (6.0-8.3) gm/dl Albumin 2.8 L 1.6 L (3.4-5.0) gm/dl Intake and Output 02/12/24 02/12/24 02/12/24 06:59 14:59 22:59 Intake Total 200 / 960 150 / 150 Balance 200 / 959 150 / 150 Intake: IV 100 / 350 150 / 150 cefTRIAXone SODIUM 2,000 mg In 50 / 50 50 ml @ 100 mls/hr IV Q24H MARY Rx#:[id number] metroNIDAZOLE 500 mg In 100 ml 100 / 300 100 / 100 @ 100 mls/hr IV Q8H MARY Rx#: [id number] Oral 100 / 610 Other: Weight 73.8 kg Weight Measurement Method Built in [facility]
[2024-02-12] MEDS: CALCIUM GLUCONATE 1,000 MG/60 ML BAG IV STA (17:00)
[2024-02-12] MEDS ORDERED: STAT IV Infusion **Titration per Protocol STA (17:14)
[2024-02-12] MEDS: SODIUM BICARB 8.4% INJ 50 MEQ/50 ML SYR IV ONE (17:50)
[2024-02-12] MEDS: PHENYLEPHRINE/NSS 25 MG/250 ML BAG IV SCH (17:52)
[2024-02-12] MEDS: ALBUMIN 5% 250 ML IV ONE (18:13)
[2024-02-12] MEDS: POTASSIUM ACETATE/NSS 20 MEQ/110 ML BAG IV SCH (18:13)
[2024-02-13 05:13] LABS: Albumin Globulin Ratio 1.5 (0.9-2); Albumin Level 1.8 gm/dl (3.4-5.0); Bilirubin,Total 0.3 mg/dl (0.2-1.0); Calcium 5.7 mg/dl (8.6-10.3); Creatinine Clr Calc Pharmacy 11.7 ml/min; Globulin 1.2 gm/dl (2.5-4.0); Phosphorus 2.4 mg/dl (2.5-4.9)
[2024-02-13 05:24] LABS: Basophils # (auto) 0.07 K/uL (0.00-0.20); Basophils % (auto) 0.3 %; Hematocrit (blood only) 27.6 % (37.0-47.0); Hemoglobin 9.2 g/dl (12.0-16.0); Immature Granulocytes # (auto) 0.48 K/uL (0.01-0.20); Immature Granulocytes % (auto) 1.9 %; Macrocytosis Present; Mean Corpuscular Hemoglobin 38.3 pg (25.0-34.0); Mean Corpuscular Hgb Conc 33.3 g/dL (32.0-36.0); Mean Platelet Volume 11.4 fL (9.4-12.4); Monocytes # (auto) 1.16 K/uL (0.11-0.59); Monocytes % (auto) 4.5 %; Neutrophils # (auto) 23.39 K/uL (1.40-6.50); Neutrophils % (auto) 91.3 %; Platelet Count 86 K/uL (130-400); Platelet Estimate Decreased (Normal); RDW Coefficient of Variation 13.5 % (11.5-14.5); RDW Standard Deviation 56.9 fL (36.4-46.3)
[2024-02-13] MEDS ORDERED: POTASSIUM PHOS 3 MMOL/1 ML INFUSION IV STA (05:59)
[2024-02-13] MEDS: CALCIUM GLUCONATE 1,000 MG/60 ML BAG IV STA (06:09)
[2024-02-13] MEDS: MAGNESIUM SULFATE / D5W 1 GM/100 ML BAG IV SCH (06:17)
[2024-02-13] MEDS: POTASSIUM PHOSPHATE 21 MMOL in SODIUM CHLORIDE 0.9% 500 ML IV ONE (06:25)
--- NOTE | 2024-02-13 08:00 | Critical Care Progress Note ---
Date of Service February 13, 2024 Assessment & Plan (1) Mesenteric ischemia: (2) Metabolic acidosis with increased anion gap and accumulation of organic acids: (3) ESRD on dialysis: (4) Abdominal pain: (5) Chronic respiratory failure with hypoxia, on home O2 therapy: (6) Paroxysmal atrial fibrillation: (7) Atrial fibrillation with rapid ventricular response: (8) Herpes simplex iridocyclitis: (9) COPD, moderate: Plan Reason Critically Ill: 78-year-old female with A-fib and rapid ventricular response and period of acute encephalopathy. PLAN: Neuro: CAM ICU: Negative -- Acute encephalopathy --> improved -Suspect related to hypotension secondary to inability to tolerate atrial fibrillation with rapid ventricular response. TSH 2.75 Resp: --COPD with emphysema Current smoker On Breo at home -- Chronic hypoxic respiratory failure On 2 L oxygen at home Continue with O2 supplementation to keep oxygen saturation between 90-92% CV: -- Hypotension with A-fib RVR -Stat bedside echo being obtained -Cardioversion x 1 200 J into normal sinus rhythm on 02/12/2024 On amiodarone at home Was on phenylephrine Procalcitonin 2.54 and an incisional disease patient 2D echo 02/12/2024: EF 60-65%, RV normal in size and function, moderate MR, small anterior loculated pericardial effusion, no cardiac tamponade, RV normal in size and function Fluids/Renal: -- End-stage renal disease On hemodialysis Gets midodrine Sqaaxa-Qangldyvk-Yqcfep on her dialysis day --Hypocalcemia Corrected calcium 5.9 Calcium gluconate given to the patient PTH is elevated. 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 difficile x 2. DC p.o. vancomycin Vascular surgery has been consulted for high-grade stenosis of the SMA as well as IVANA. Patient has been off vasopressor since at least 6 hours. During hemodialysis unfortunately patient's blood pressure was titrating down. Will continue to keep her in the unit overnight and then possible downgrade tomorrow if she is off vasopressors I have personally spent 33 minutes of critical care time in the direct management of this patient. This is a life/limb threatening event. This includes time spent evaluating patient, direct bedside care, chart review, placing orders, interpretation of diagnostic studies, discussion with consultants, patient, and family members, as well as other required patient management activities. This time is exclusive of all separately billable procedures, and teaching time and separate from and in addition to any other critical care service time. Please note the above document was generated using voice recognition software. It may contain grammatical, syntax or spelling errors. Admission and Anticipated Discharge Date Admission Date: February 07, 2024 Subjective Patient seen and examined at bedside. No acute distress She was saturating 97-98% on 2 L nasal cannula, I went down to 1 L Her systolic blood pressure was in the 120s with MAP in the high 60s. She complained of still abdominal pain, no nausea vomiting Denied any chest pain, no shortness of breath Has been afebrile Of vasopressors since around 2 AM Review of Systems 2 Review of Systems: All systems reviewed & are unremarkable except as noted in Subjective Physical Exam 2 Physical Exam: Constitutional: No acute distress HEENT: EOMI, PERRLA Respiratory system: Decreased air entry bilaterally, no wheeze, no rhonchi, mild crackles bilateral lower lobes CVS: S1-S2 positive, positive 2 out of 6 systolic murmur appreciated best at aorta Abdomen: Soft, nontender, nondistended, positive bowel sounds x4 Extremities: + 1 pulses bilaterally radialis/ dorsalis pedis, no cyanosis, minimal pitting edema, warm extremities Neuro: Awake alert oriented x3 Psych: Normal mood and affect G/U: No [place] Skin: no rashes, warm and dry Lymphatic: no cervical or axillary lymphadenopathy Results & Data Results & Data Vital Signs (Past 12 Hours) Vital Signs Temp Pulse Pulse Resp BP BP BP 02/13/24 06:00 66 22 110/59 L 02/13/24 05:00 63 17 100/49 L 02/13/24 04:00 65 22 101/38 L 02/13/24 03:30 70 21 105/41 L 02/13/24 03:00 36.6 C 66 18 110/47 L 110/35 L 02/13/24 00:06 63 02/13/24 00:00 65 24 120/54 L 02/12/24 23:00 64 18 115/53 L 121/55 L 02/12/24 22:00 66 19 129/66 135/40 L 02/12/24 21:00 36.6 C 66 18 130/50 L 129/57 L 02/12/24 20:00 Pulse Ox O2 Del Method O2 Flow Rate 02/13/24 06:00 99 Nasal Cannula 2 02/13/24 05:00 96 Nasal Cannula 2 02/13/24 04:00 96 Nasal Cannula 2 02/13/24 03:30 70 L Nasal Cannula 2 02/13/24 03:00 98 Nasal Cannula 2 02/13/24 00:06 02/13/24 00:00 97 Nasal Cannula 2 02/12/24 23:00 99 Nasal Cannula 2 02/12/24 22:00 99 Nasal Cannula 2 02/12/24 21:00 99 Nasal Cannula 4 02/12/24 20:00 Nasal Cannula 4 Laboratory Results 02/13/24 04:38 02/13/24 04:38 Coding Level of Care Code 98734 CRITICAL CARE 1ST 30-74M Diagnoses Mesenteric ischemia K55.9 Metabolic acidosis with increased anion gap and accumulation of organic acids E87.20 ESRD on dialysis N18.6; Z99.2 Abdominal pain R10.84 Abdominal location: generalized Chronic respiratory failure with hypoxia, on home O2 therapy J96.11; Z99.81 Paroxysmal atrial fibrillation I48.0 Atrial fibrillation with rapid ventricular response I48.91 Herpes simplex iridocyclitis B00.51 COPD, moderate J44.9 (4) Abdominal pain Abdominal location: generalized Qualified Code(s): R10.84 - Generalized abdominal pain
--- NOTE | 2024-02-13 09:42 | Nephrology Progress Note ---
Date of Service February 13, 2024 Assessment & Plan (1) ESRD on hemodialysis: Plan: Long standing ESRD patient with Anuria. has a good Left UE AVF for access; no issues continues to appear vol depleted from Acute GI issues/chronic diarrhea and poor Appetite. leukocytosis worsening after yesterday s events from 31 02/07 > 10 > 26 today. hgb 9.7 > 10.2 > 9.2 -- had 4K units epo 02/09; will give more today 02/09 had no UF and had gentle IVF d5nss at 60/hr. on full liquid diet >> fluid restriction not indicated; dialysis diet not indicated at this time as K 3.0 / controlled continue to hold renvela and encourage po >>orders in for HD > 3.25hr, no UF as she's loosing lots of fluid w/ BM and is hardly eating; will try albumin w/ tx midway; also another 4 K epo; 3K bath (will try for 4K if available) continue low dose midodrine w/ HD; else would not intervene specifically for hypotension will plan bedside dialysis in ICU with no UF (2) Diverticulitis of small bowel: Plan: Reason for Admission. has Sig symptoms and very very high WBC at 31K peak on 02/07; WBC climbing again and w/ ongoing abd pain, minimal po, and ongoing disruptive diarrhea. On PO Vanco and flagyl and Ceftraizxone. All abx Can be continued. (3) Mesenteric ischemia: Plan: await vascular input; not likely a candidate for large high risk surgery (4) Atrial fibrillation with rapid ventricular response: Plan: s/p cardioversion; rate controlled now >>maintain mag of 2 and K of 4 >> getting 4 bags IV mag; also getting small K supplement Admission and Anticipated Discharge Date Admission Date: February 07, 2024 Subjective code purple called yesterday at CT scan >> hypotension, AF w/ RVR > successful electric cardioversion, brief period of unresponsiveness. moved to ICU for stabilization > has R femoral art line; central access; bag/valve/mask supported for a time. code status confirmed as DNR/ DNI. palliative care consultation placed for further goals of care including post d/c dispo. this am vascular c/s placed after CTA showed high grade stenosis sup/inf mesenteric arteries and e/o improved but still present enterocolitis. pt with improved but ongoing abd pain and still w/ liquid stools. denies sob. wants to continue w/ dialysis; waiting to hear what vascular has to say Review of Systems 2 Review of Systems: All systems reviewed & are unremarkable except as noted in Subjective Physical Exam 2 Constitutional: well developed, + thin, + frail appearing and cooperative; no acute distress ENMT: Mouth: + dry oral mucous membranes Respiratory: normal respiratory effort Auscultation: + diminished lung sounds Cardiovascular: Rate/Rhythm: regular rate (w/ occasional premature beat) and regular rhythm Extremities: + AV fistula; no edema Gastrointestinal (Abdomen): Inspection/Auscultation: normal bowel sounds P ercussion/Palpation: + abdomen tender (to moderate palpation periumbilical diffusely), + guarding and abdomen soft Musculoskeletal: Extremities: strength 5/5 throughout Skin: no rashes, warm and dry Results & Data Vital Signs (Past 12 Hours) Vital Signs Temp Pulse Pulse Resp BP BP BP 02/13/24 09:38 36.6 C 02/13/24 09:06 02/13/24 09:03 63 18 02/13/24 09:00 113/45 L 02/13/24 08:54 64 18 02/13/24 08:09 66 19 02/13/24 08:00 111/63 02/13/24 07:57 68 21 02/13/24 07:00 69 21 02/13/24 07:00 113/42 L 02/13/24 07:00 113/42 L 02/13/24 07:00 113/42 L 02/13/24 06:30 110/59 L 02/13/24 06:30 110/59 L 02/13/24 06:21 63 17 02/13/24 06:06 67 17 02/13/24 06:01 111/37 L 02/13/24 06:01 111/37 L 02/13/24 06:01 111/37 L 02/13/24 06:00 66 22 110/59 L 02/13/24 05:51 66 18 02/13/24 05:30 103/43 L 02/13/24 05:30 103/43 L 02/13/24 05:30 103/43 L 02/13/24 05:30 68 18 02/13/24 05:12 68 22 02/13/24 05:00 63 17 100/49 L 02/13/24 04:00 67 20 02/13/24 04:00 101/38 L 02/13/24 04:00 101/38 L 02/13/24 04:00 65 22 101/38 L 02/13/24 03:54 65 18 02/13/24 03:54 105/41 L 02/13/24 03:53 60/39 L 02/13/24 03:33 64 17 02/13/24 03:32 105/43 L 02/13/24 03:32 105/43 L 02/13/24 03:32 105/43 L 02/13/24 03:30 64 18 02/13/24 03:30 70 21 105/41 L 02/13/24 03:12 70 19 02/13/24 03:00 110/47 L 02/13/24 03:00 36.6 C 66 18 110/47 L 110/35 L 02/13/24 02:57 66 24 02/13/24 02:09 75 25 H 02/13/24 02:00 127/48 L 02/13/24 02:00 127/48 L 02/13/24 02:00 127/48 L 02/13/24 01:42 67 19 02/13/24 01:00 68 24 02/13/24 01:00 114/52 L 02/13/24 01:00 114/52 L 02/13/24 00:06 63 02/13/24 00:00 66 20 02/13/24 00:00 114/47 L 02/13/24 00:00 114/47 L 02/13/24 00:00 65 24 120/54 L 02/12/24 23:00 115/53 L 02/12/24 23:00 115/53 L 02/12/24 23:00 64 18 115/53 L 121/55 L 02/12/24 22:00 66 19 129/66 135/40 L Pulse Ox O2 Del Method O2 Flow Rate 02/13/24 09:38 02/13/24 09:06 Nasal Cannula 2 02/13/24 09:03 97 02/13/24 09:00 02/13/24 08:54 91 02/13/24 08:09 96 02/13/24 08:00 02/13/24 07:57 95 02/13/24 07:00 97 02/13/24 07:00 02/13/24 07:00 02/13/24 07:00 02/13/24 06:30 02/13/24 06:30 02/13/24 06:21 98 02/13/24 06:06 99 02/13/24 06:01 02/13/24 06:01 02/13/24 06:01 02/13/24 06:00 99 Nasal Cannula 2 02/13/24 05:51 96 02/13/24 05:30 02/13/24 05:30 02/13/24 05:30 02/13/24 05:30 97 02/13/24 05:12 97 02/13/24 05:00 96 Nasal Cannula 2 02/13/24 04:00 97 02/13/24 04:00 02/13/24 04:00 02/13/24 04:00 96 Nasal Cannula 2 02/13/24 03:54 98 02/13/24 03:54 02/13/24 03:53 02/13/24 03:33 97 02/13/24 03:32 02/13/24 03:32 02/13/24 03:32 02/13/24 03:30 97 02/13/24 03:30 70 L Nasal Cannula 2 02/13/24 03:12 98 02/13/24 03:00 02/13/24 03:00 98 Nasal Cannula 2 02/13/24 02:57 98 02/13/24 02:09 97 02/13/24 02:00 02/13/24 02:00 02/13/24 02:00 02/13/24 01:42 97 02/13/24 01:00 97 02/13/24 01:00 02/13/24 01:00 02/13/24 00:06 02/13/24 00:00 98 02/13/24 00:00 02/13/24 00:00 02/13/24 00:00 97 Nasal Cannula 2 02/12/24 23:00 02/12/24 23:00 02/12/24 23:00 99 Nasal Cannula 2 02/12/24 22:00 99 Nasal Cannula 2 Laboratory Results 02/13/24 04:38 02/13/24 04:38 Diagnostic Findings CTA a/p (images personally reveiwed) 1. Atherosclerosis of the abdominal aorta without aneurysm or dissection. 2. Extensive atherosclerosis with high grade stenosis noted at the origin of the superior and inferior mesenteric and renal arteries. 3. Findings suggestive of a nonspecific enterocolitis/diarrheal illness with areas of improved wall thickening. No obstruction identified. 4. No pneumatosis or pneumoperitoneum. 5. Atrophic kidneys. 6. Unchanged lytic acetabular lesions.
--- NOTE | 2024-02-13 09:51 | Cardiology Progress Note ---
Date of Service February 13, 2024 Assessment & Plan (1) Paroxysmal atrial fibrillation: (2) ESRD (end stage renal disease) on dialysis: (3) Chronic respiratory failure with hypoxia: Plan 78-year-old female readmitted on 02/06 with poor p.o. intake, nausea, vomiting, diarrhea, and abdominal pain. Unresponsive followed CT on 02/11, undergoing cardioversion of atrial fibrillation (present since February 10, 2024) back to sinus rhythm. 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 Fluid resuscitate. Supplement potassium and magnesium. Please contact with any questions or concerns. Admission and Anticipated Discharge Date Admission Date: February 07, 2024 Supervising Physician Co-Signing Physician Notes Follow-up attending attestation: Case reviewed with the advanced practitioner. I have personally performed a history and physical examination on the patient. I have reviewed the advanced practitioner's documentation on the date of service referenced in note, and I agree with, and take responsibility for the plan of care. I spent a total of 20 minutes coordinating, documenting, and providing care for this patient excluding time spent in the performance of separately billed services or time spent by another provider. Suhas Somers, DO Subjective Patient seen and examined. Chart, medications, telemetry reviewed. Feels tired, weak, washed out. Incontinent of loose stools. No chest pain. No palpitations. No shortness of breath. No orthopnea, PND, or peripheral edema. Telemetry: Sinus following cardioversion 02/11 Physical Exam Physical Exam: General: Alert to person and place. No acute distress. Lethargic. Neck: Right IJ line, No JVD Heart: RRR. Systolic murmur. No rub. Lungs: Clear to auscultation anteriorly. Abdomen: +BS. Nontender. No organomegaly. Femoral line Extremities: No clubbing, cyanosis, or edema. Limited neurological examination is without focal deficits. Results & Data Laboratory Results Cardiac Enzymes 02/12/24 02/13/24 Range/Units 13:46 04:38 AST 16 17 (13-39) U/L CBC 02/12/24 02/13/24 Range/Units 13:46 04:38 WBC 27.86 H D 25.60 H (4.8-10.8) K/ul RBC 2.33 L 2.40 L (4.20-5.40) M/uL Hgb 9.0 L 9.2 L (12.0-16.0) g/dl Hct 28.8 L 27.6 L (37.0-47.0) % Plt Count 141 86 L (130-400) K/uL Neut # (Auto) 22.90 H 23.39 H (1.40-6.50) K/uL Lymph # (Auto) 1.89 0.50 L (1.20-3.40) K/uL [place] # (Auto) 0.95 H 1.16 H (0.11-0.59) K/uL Eos # (Auto) 0.07 0.00 (0.00-0.50) K/uL Baso # (Auto) 0.15 0.07 (0.00-0.20) K/uL Comprehensive Metabolic Panel 02/12/24 02/12/24 02/12/24 Range/Units 13:46 14:36 15:08 Sodium 143 (136-145) mmol/L Potassium 2.5 L* D 2.1 L* 2.1 L* (3.5-5.1) mmol/L Chloride 119 H (98-107) mmol/L Carbon Dioxide 12 L (21-32) mmol/L BUN 22 (6-23) mg/dl Creatinine 3.79 H D (0.6-1.2) mg/dl Glucose 178 H (70-99(Fasting)) mg/dl Calcium 5.4 L* D (8.6-10.3) mg/dl AST 16 (13-39) U/L ALT 10 (7-52) U/L Alkaline Phosphatase 63 (34-104) U/L Total Protein < 3.0 L D (6.0-8.3) gm/dl Albumin 1.6 L (3.4-5.0) gm/dl 02/13/24 Range/Units 04:38 Sodium 144 (136-145) mmol/L Potassium 3.0 L D (3.5-5.1) mmol/L Chloride 119 H (98-107) mmol/L Carbon Dioxide 17 L (21-32) mmol/L BUN 25 H (6-23) mg/dl Creatinine 4.20 H D (0.6-1.2) mg/dl Glucose 109 H (70-99(Fasting)) mg/dl Calcium 5.7 L* (8.6-10.3) mg/dl AST 17 (13-39) U/L ALT 11 (7-52) U/L Alkaline Phosphatase 45 (34-104) U/L Total Protein 3.0 L (6.0-8.3) gm/dl Albumin 1.8 L (3.4-5.0) gm/dl Intake and Output 02/12/24 02/13/24 02/13/24 22:59 06:59 14:59 Intake Total 843.67 / 1300.328 256.658 / 1300.328 165.833 / 165.833 Output Total Balance 842.67 / 1198.328 256.658 / 1198.328 165.833 / 165.833 Intake: IV 793.67 / 1150.328 206.658 / 1150.328 165.833 / 165.833 Albumin 5% 250 ml @ 500 mls/hr 250 / 250 IV ONE ONE Rx#:[id number] Calcium Gluconate 1,000 mg In 60 / 120 60 / 120 60 ml @ 240 mls/hr IV NOW STA Rx#:[id number] Magnesium Sulfate / D5w 1 gm In 165.833 / 165.833 100 ml @ 50 mls/hr IV Q2H MARY Rx#:[id number] Phenylephrine/Nss 25 mg In 250 163.67 / 210.328 46.658 / 210.328 ml @ 0.5 MCG/KG/MIN 22.14 mls/ hr IV .[id number] MARY Rx#:[id number] Potassium Acetate/Nss 20 meq In 220 / 220 110 ml @ 55 mls/hr IV Q2H MARY Rx#:[id number] metroNIDAZOLE 500 mg In 100 ml 100 / 300 100 / 300 @ 100 mls/hr IV Q8H MARY Rx#: [id number] Oral 50 / 150 50 / 150 Output: # Bowel Movements 1 / 2
--- NOTE | 2024-02-13 11:20 | Consultation ---
Date of Consultation February 13, 2024 Assessment & Plan (1) Mesenteric ischemia: Pt with SMA and IVANA stenosis on CTA abd/pelvis, also with exquisite tenderness to entire abd. Hx positive for post prandial pain as well as pain while eating which limits her intake, as well as some weight loss. Pt discussed at length with Dr Vale, who reviewed imaging. Recommends pt undergo mesenteric angio with BICYCLE RACER/stenting of SMA. Procedure discussed with pt, she wishes us to discuss with her daughter before agreeing. Patient was seen, examined, and chart reviewed. Agree with exam and treatment plan of the Vascular PA. History of Present Illness Reason for Consultation: mesenteric artery disease Attending Physician: Aziza Frederick MD History of Present Illness 78 yo f with hx of ESRD on HD, NSTEMI, a fib not on AC,anemia, COPD, HTN, osteoarthritis, dyslipidemia, Gi bleed, and recurrent c diff infections, admitted with abd pain, diverticulitis, seen in consultation today for mesenteric ischemia after SMA and IVANA stenosis noted on CTA abd/pelvis. Pt is a poor historian. States has had abd pain when eating for past few months, so has gotten used to eating very small amts of food. Has been hving weight loss as noted at HD unit, but unsure how much. States the HD nurses were concerned about it. States she developed worsening abd pain when she came into [facility], and currently states her pain is mostly whenever anyone touches her abd. Also still having pain during or shortly after eating. Having loose BM for some time, currently being treated with vancomycin for recurrent C diff infections. Denies BETANCOURT, fever, chest pain, SOB, N/V, rest pain, claudication, other complaints. Does not ambulate much at all. CTA abd/pelvis demonstrates severe stenosis of SMA and IVANA. Allergies Allergy/AdvReac Type Severity Reaction Status Date / Time chlorhexidine Allergy Intermediate ITCHING Verified 05/24/23 14:59 Home Medications Medication Instructions Recorded Confirmed Type ipratropium 0.5 mg-albuterol 3 mg 3 ml inhalation QID PRN Shortness 09/26/18 02/07/24 History (2.5 mg base)/3 mL nebulization Of Breath soln vitamin B complex-vitamin C-folic 1 tab PO QAM 09/26/18 02/07/24 History acid 0.8 mg tablet (Arabella-Tiak) fluticasone propionate 50 2 spray intranasal HS 01/18/19 02/07/24 History mcg/actuation nasal spray,suspension albuterol sulfate 90 mcg/actuation 2 puff inhalation Q4H PRN Wheezing 04/05/19 02/07/24 History aerosol inhaler acetaminophen 325 mg tablet 650 mg PO Q6H PRN Pain 04/14/21 02/07/24 History (Tylenol) camphor-menthol 0.5 %-0.5 % lotion 1 applic topical DIRECTED PRN 04/14/21 02/07/24 History Itching epoetin gabriel 10,000 unit/mL 0 unit IV DIRECTED 04/14/21 02/07/24 History injection solution (Procrit) lidocaine-prilocaine 2.5 %-2.5 % 1 applic topical DIRECTED PRN 04/14/21 02/07/24 History topical cream PRIOR TO DIALYSIS loperamide 2 mg capsule (Imodium 2 mg PO QID PRN Diarrhea 04/14/21 02/07/24 History A-D) valacyclovir 1 gram tablet 1,000 mg PO QAM 04/14/21 02/07/24 History fluorometholone 0.1 % eye 1 drp OPL QAM 01/25/22 02/07/24 History drops,suspension amiodarone 200 mg tablet 200 mg PO DAILY 30 days #60 tabs 05/12/22 02/07/24 Rx docusate sodium 100 mg capsule 100 mg PO BID PRN Constipation 04/01/23 02/07/24 History (Colace) fluticasone furoate 200 1 inh inhalation DAILY 04/01/23 02/07/24 History mcg-vilanterol 25 mcg/dose inhalation powder (Breo Ellipta) midodrine 2.5 mg tablet 2.5 mg PO 3XWK 12/31/23 02/07/24 History lanthanum 500 mg chewable tablet 500 mg PO UD 01/24/24 02/07/24 History sevelamer carbonate 800 mg tablet 1,600 mg PO UD 01/24/24 02/07/24 History (Renvela) vancomycin 1,000 mg intravenous 250 mg PO Q6 02/07/24 02/07/24 History injection Patient History Medical History ESRD (end stage renal disease) on dialysis follows with Dr. Reed; Hillary Corley, [facility] (since 02/2013) On home oxygen therapy 3 LPM cont History of colon polyps Tobacco use History of GI bleed Renal cyst H/O cardiovascular stress test "05/2013 - negative for ischemia" Pancreatic cyst Obesity Psoriasis Adrenal adenoma Surgical History History of surgery AVF creation History of intestinal surgery Family History Father Myocardial infarction, Onset Age: 64 Diabetes Mother , 87 Alzheimer disease Brother Diabetes Other No family history of adverse response to anesthesia Social History Smoking Status: Current every day smoker Tobacco Type: Cigarettes Cigarettes Per Day: 3; Second Hand Exposure: Yes; Do You Dip or Chew Tobacco: No; Hx Alcohol Use: No Hx Substance Use: No Preferred Language: Thai Communication Ability: Effective 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 Assistant Teacher 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 Beliefs That Will Affect Care: None marital status: / Current Living Situation: Alone current occupational status: retired How many Children do You have: 1 Feels Safe at Home: Yes Safety Concerns: Feels Safe At This Time Assistive Devices: Oxygen - Continuous, Walker and Other Review of Systems Review of Systems: All systems reviewed & are unremarkable except as noted in HPI & below Physical Exam Constitutional: WD/WN, vitals as above cooperative and comfortable; not in distress Neck: trachea midline Respiratory: normal respiratory effort, lungs clear to auscultation Auscultation: + diminished lung sounds Cardiovascular: Rate/Rhythm: + irregularly irregular Vessels: posterior tibial pulses present, dorsalis pedis pulses present and radial pulses present; + abnormal peripheral pulses Extremities: normal capillary refill; no edema Gastrointestinal (Abdomen): Inspection/Auscultation: normal bowel sounds Percussion/Palpation: + abdomen tender, + guarding and abdomen soft Musculoskeletal: no cyanosis or clubbing, extremities motor strength 5/5 Skin: no rashes, warm and dry Neurologic: moves all extremities and awake; no focal motor deficits and not confused Psychiatric: A+Ox3, euthymic affect Results & Data Vital Signs (Past 12 Hours) Vital Signs Temp Pulse Pulse Resp BP BP BP 02/13/24 09:38 36.6 C 02/13/24 09:06 02/13/24 09:03 63 18 02/13/24 09:00 113/45 L 02/13/24 08:54 64 18 02/13/24 08:09 66 19 02/13/24 08:00 111/63 02/13/24 07:57 68 21 02/13/24 07:00 69 21 02/13/24 07:00 113/42 L 02/13/24 07:00 113/42 L 02/13/24 07:00 113/42 L 02/13/24 06:30 110/59 L 02/13/24 06:30 110/59 L 02/13/24 06:21 63 17 02/13/24 06:06 67 17 02/13/24 06:01 111/37 L 02/13/24 06:01 111/37 L 02/13/24 06:01 111/37 L 02/13/24 06:00 66 22 110/59 L 02/13/24 05:51 66 18 02/13/24 05:30 103/43 L 02/13/24 05:30 103/43 L 02/13/24 05:30 103/43 L 02/13/24 05:30 68 18 02/13/24 05:12 68 22 02/13/24 05:00 63 17 100/49 L 02/13/24 04:00 67 20 02/13/24 04:00 101/38 L 02/13/24 04:00 101/38 L 02/13/24 04:00 65 22 101/38 L 02/13/24 03:54 65 18 02/13/24 03:54 105/41 L 02/13/24 03:53 60/39 L 02/13/24 03:33 64 17 02/13/24 03:32 105/43 L 02/13/24 03:32 105/43 L 02/13/24 03:32 105/43 L 02/13/24 03:30 64 18 02/13/24 03:30 70 21 105/41 L 02/13/24 03:12 70 19 02/13/24 03:00 110/47 L 02/13/24 03:00 36.6 C 66 18 110/47 L 110/35 L 02/13/24 02:57 66 24 02/13/24 02:09 75 25 H 02/13/24 02:00 127/48 L 02/13/24 02:00 127/48 L 02/13/24 02:00 127/48 L 02/13/24 01:42 67 19 02/13/24 01:00 68 24 02/13/24 01:00 114/52 L 02/13/24 01:00 114/52 L 02/13/24 00:06 63 02/13/24 00:00 66 20 02/13/24 00:00 114/47 L 02/13/24 00:00 114/47 L 02/13/24 00:00 65 24 120/54 L Pulse Ox O2 Del Method O2 Flow Rate 02/13/24 09:38 02/13/24 09:06 Nasal Cannula 2 02/13/24 09:03 97 02/13/24 09:00 02/13/24 08:54 91 02/13/24 08:09 96 02/13/24 08:00 02/13/24 07:57 95 02/13/24 07:00 97 02/13/24 07:00 02/13/24 07:00 02/13/24 07:00 02/13/24 06:30 02/13/24 06:30 02/13/24 06:21 98 02/13/24 06:06 99 02/13/24 06:01 02/13/24 06:01 02/13/24 06:01 02/13/24 06:00 99 Nasal Cannula 2 02/13/24 05:51 96 02/13/24 05:30 02/13/24 05:30 02/13/24 05:30 02/13/24 05:30 97 02/13/24 05:12 97 02/13/24 05:00 96 Nasal Cannula 2 02/13/24 04:00 97 02/13/24 04:00 02/13/24 04:00 02/13/24 04:00 96 Nasal Cannula 2 02/13/24 03:54 98 02/13/24 03:54 02/13/24 03:53 02/13/24 03:33 97 02/13/24 03:32 02/13/24 03:32 02/13/24 03:32 02/13/24 03:30 97 02/13/24 03:30 70 L Nasal Cannula 2 02/13/24 03:12 98 02/13/24 03:00 02/13/24 03:00 98 Nasal Cannula 2 02/13/24 02:57 98 02/13/24 02:09 97 02/13/24 02:00 02/13/24 02:00 02/13/24 02:00 02/13/24 01:42 97 02/13/24 01:00 97 02/13/24 01:00 02/13/24 01:00 02/13/24 00:06 02/13/24 00:00 98 02/13/24 00:00 02/13/24 00:00 02/13/24 00:00 97 Nasal Cannula 2
[2024-02-13] MEDS: HEPARIN SOD (PORCINE) 1000 UNIT/ML IV ONE (15:12)
[2024-02-13] MEDS: EPOETIN ALFA 4,000 UNIT/ML VIAL IV ONE (15:27)
[2024-02-13] MEDS: HEPARIN SOD (PORCINE) 1000 UNIT/ML IV SCH (15:56)
--- NOTE | 2024-02-13 16:19 | Electrocardiogram Report ---
Test Reason : Blood Pressure : */* mmHG Vent. Rate : 110 BPM Atrial Rate : 110 BPM P-R Int : 204 ms QRS Dur : 110 ms QT Int : 334 ms P-R-T Axes : 82 80 47 degrees QTcB Int : 452 ms Sinus tachycardia Nonspecific ST abnormality When compared with ECG of 10-Feb-2024 13:43, Sinus rhythm has replaced Atrial fibrillation Nonspecific T wave abnormality has replaced inverted T waves in Inferior leads Confirmed by Willie Castro ([id number]) on 02/13/2024 4:19:01 PM Referred By: [facility] Confirmed By: Willie Castro
--- NOTE | 2024-02-13 16:25 | Hospitalist Progress Note ---
Date of Service February 13, 2024 Assessment & Plan (1) Abdominal pain: (2) Diverticulitis of small bowel: (3) Enterocolitis: (4) ESRD (end stage renal disease) on dialysis: Plan This is a 78-year-old female who has a significant past medical history of chronic hypoxic respiratory failure on 3 L of O2, COPD, PAF off anticoagulation secondary to bleeding, mesenteric artery stenosis, HTN, mitral regurgitation, ESRD on HD, HLD, T2DM, secondary hyperparathyroidism, anemia and ESRD, hypogammaglobinemia and history of tobacco abuse who presents to ED secondary to abdominal pain. Recent admission 01/23 - 01/29 for near syncope. Seen and evaluated by cards. [place] possibly 2/2 labile HTN with HD, Lisinopril stopped and midodrine 3x weekly continued. She developed abd pain throughout stay and diarrhea. Stool biofire and for cdiff negative. Empirically started on oral vanco and discharged to [facility]. While at [facility] pt has been having worsening abd pain, n/v/d. Vanco increased to 250mg QID. She was borderline hypotensive and wbc climbing so sent to ED for eval. 02/12/2024: Case discussed multiple times during the day with general surgery and nephrology. General surgery requesting CTA of the abdomen pelvis given patient's persistent significant tenderness to palpation on exam. Concern for mesenteric ischemia given patient's complex medical history. Case further discussed with nephrology who advised can proceed with IV contrast for the needed CTA of the abdomen pelvis to rule out mesenteric ischemia. Later notified by nursing that patient was a "code purple" in the CT area. Patient was seen at that time by ER physician Dr. Parth Bliss who noted that she was hypotensive and in A-fib with RVR. Patient then became unresponsive and was then cardioverted at that time into sinus rhythm. she was transferred to the ICU and had a central and arterial line placed, concern for her requiring pressor support. Noted severe metabolic acidosis. She was awake and responsive to her name, eventually stating at one point that she would like to have a bowel movement. Her daughter Delphine was contacted via telephone and advised of the day's events. She later presented to bedside in room 103 in the ICU. ICU physician had extensive discussion with daughter and son-in-law at bedside explaining patient's medical course at this time and her will to live despite her chronic progressing medical conditions. Daughter notes that patient has purposely not signed a POA but did make her wishes known to her daughter that she does not want to be in the fdc and would likely not want to have surgery should the CTA of the abdomen pelvis note mesenteric ischemia. Discussion of patient's full CODE STATUS and daughter agreeing that based on patient's wishes she would want to be a DNR/DNI. Patient's daughter also agreeing to a palliative care consult to discuss goals of care further and what her future care could look like. Pt made DNR/DNI Palliative care consulted Appreciate care and recs of ICU at this time. Cardiology also consulted. 02/13/2024- patient still ICU status. CTA abdomen pelvis noting "high grade stenosis noted at the origin of the superior and inferior mesenteric and renal arteries." Vascular surgery was consulted and recommends stenting. Patient discussing with daughter and son-in-law whether she wants to proceed with surgery. palliative care consult still pending. CT abdomen pelvis also noting improved colitis. Continue with antibiotics. She was previously treated for the following: Abdominal Pain Diverticulitis of the small bowel Possible persistent/recurrent c diff colitis Pt with significant leukocytosis >30 CT noting concern for diverticulitis stool cultures negative Repeat C. difficile testing was initially not able to be obtained before treatment. Eventually obtained on 02/10 after abx treatments and was negative NPO--> transitioned to clears on 02/09/24, full liquids on 02/10/24 and low f iber diet on 02/11/24. per nursing, patient without much intake IV zosyn switched to IV Rocephin and IV Flagyl for treatment of diverticulitis, p.o. vancomycin 500mg every 6 hours also added for treatment of likely C. difficile colitis along with IV Flagyl probiotic daily consult general surg, appreciate recs -continue with full liquids as abd still sig tender to palpation -Continue abx regimen Infectious disease consulted, appreciate recs very cautious IVF D5NSS at 50cc/hr x 24hr continue to monitor PAF Pt flipped from sinus rhythm to atrial fibrillation in the AM of 02/09 Per chart review appears that her amiodarone had not been given on 02/08/2024. However per chart review and discussion with nurses she did receive her dose on 02/08, 02/09 and 02/10 and 02/11 her heart rates are currently controlled continue amiodarone, off oral anticoagulation due to bleeding Continue to monitor on telemetry, rate has been improving Cardiology consulted, appreciate recs ESRD on HD: typically T//Sat however while at [facility] is on MWF HD on 02/07 with nephro, on board Also on 02/09 Sacral Wound Pt with stage II sacral ulcer Continue offloading as tolerated Wound consult Chronic hypoxic resp failure on 3.5L/COPD continue home inhalers Anemia of Chronic Disease hgb stable 11.4 monitor no s/sx of bleeding Chronic HFpEF, mod to severe MR volume status via HD Hx of T2DM last a1c in Mar was 5.9 5.9 on repeat this admission Diet: on full liquids, advance as tolerated DVT ppx: SQ Heparin Dispo: PT/OT for further recs once medically stable Admission and Anticipated Discharge Date Admission Date: February 07, 2024 Subjective Patient was seen with son-in-law Sammy at bedside. She is alert and conversant, joking still having lots of bowel movements abdomen kier tender still not eating as much Review of Systems Review of Systems: All systems reviewed & are unremarkable except as noted in Subjective Physical Exam Physical Exam: General: Alert Neuro: AAOx3 HEENT: NC/AT CV: regular Resp: Breath sounds clear bilaterally, no increased effort of breathing Abdomen: Soft, tender to palpation Lower back: stage II sacral ulcer noted in sacral area Results & Data Results & Data Vital Signs (Past 12 Hours) Vital Signs Temp Pulse Pulse Resp BP Pulse Ox O2 Del Method 02/13/24 15:30 67 111/55 L 02/13/24 15:00 64 127/47 L 02/13/24 14:55 61 107/52 L 02/13/24 14:40 36.5 C 64 02/13/24 13:06 36.7 C 02/13/24 13:03 67 14 93 02/13/24 13:00 126/52 L 02/13/24 12:45 65 20 93 02/13/24 12:39 75 22 93 02/13/24 12:21 63 19 96 02/13/24 12:00 66 25 H 94 02/13/24 11:54 67 21 98 02/13/24 11:48 63 17 96 02/13/24 11:39 63 17 89 L 02/13/24 11:00 119/55 L 02/13/24 10:51 64 16 91 02/13/24 10:42 61 16 89 L 02/13/24 10:21 68 5 L 02/13/24 10:15 68 22 02/13/24 10:13 111/63 02/13/24 10:13 111/63 02/13/24 10:13 111/63 02/13/24 10:13 111/63 02/13/24 10:06 66 19 92 02/13/24 10:00 127/46 L 02/13/24 09:57 63 21 94 02/13/24 09:38 36.6 C 02/13/24 09:31 114/49 L 02/13/24 09:31 114/49 L 02/13/24 09:31 114/49 L 02/13/24 09:30 64 17 96 02/13/24 09:24 65 15 94 02/13/24 09:06 Nasal Cannula 02/13/24 09:03 63 18 97 02/13/24 09:00 113/45 L 02/13/24 08:54 64 18 91 02/13/24 08:09 66 19 96 02/13/24 08:00 111/63 02/13/24 07:57 68 21 95 02/13/24 07:00 69 21 97 02/13/24 07:00 113/42 L 02/13/24 07:00 113/42 L 02/13/24 07:00 113/42 L 02/13/24 06:30 110/59 L 02/13/24 06:30 110/59 L 02/13/24 06:21 63 17 98 02/13/24 06:06 67 17 99 02/13/24 06:01 111/37 L 02/13/24 06:01 111/37 L 02/13/24 06:01 111/37 L 02/13/24 06:00 66 22 110/59 L 99 Nasal Cannula 02/13/24 05:51 66 18 96 02/13/24 05:30 103/43 L 02/13/24 05:30 103/43 L 02/13/24 05:30 103/43 L 02/13/24 05:30 68 18 97 02/13/24 05:12 68 22 97 02/13/24 05:00 63 17 100/49 L 96 Nasal Cannula O2 Flow Rate 02/13/24 15:30 02/13/24 15:00 02/13/24 14:55 02/13/24 14:40 02/13/24 13:06 02/13/24 13:03 02/13/24 13:00 02/13/24 12:45 02/13/24 12:39 02/13/24 12:21 02/13/24 12:00 02/13/24 11:54 02/13/24 11:48 02/13/24 11:39 02/13/24 11:00 02/13/24 10:51 02/13/24 10:42 02/13/24 10:21 02/13/24 10:15 02/13/24 10:13 02/13/24 10:13 02/13/24 10:13 02/13/24 10:13 02/13/24 10:06 02/13/24 10:00 02/13/24 09:57 02/13/24 09:38 02/13/24 09:31 02/13/24 09:31 02/13/24 09:31 02/13/24 09:30 02/13/24 09:24 02/13/24 09:06 2 02/13/24 09:03 02/13/24 09:00 02/13/24 08:54 02/13/24 08:09 02/13/24 08:00 02/13/24 07:57 02/13/24 07:00 02/13/24 07:00 02/13/24 07:00 02/13/24 07:00 02/13/24 06:30 02/13/24 06:30 02/13/24 06:21 02/13/24 06:06 02/13/24 06:01 02/13/24 06:01 02/13/24 06:01 02/13/24 06:00 2 02/13/24 05:51 02/13/24 05:30 02/13/24 05:30 02/13/24 05:30 02/13/24 05:30 02/13/24 05:12 02/13/24 05:00 2 Diagnostic Findings Abdomen/Pelvis CT 02/07/24 13:22 CT OF THE ABDOMEN AND PELVIS WITHOUT CONTRAST CLINICAL HISTORY: Diffuse abdominal pain. COMPARISON STUDY: CT of the abdomen and pelvis January 26, 2024. KUB January 27, 2024. TECHNIQUE: Axial images of the abdomen and pelvis were obtained without IV contrast. Images were reviewed in the axial, sagittal, and coronal planes. Automated exposure control was utilized for the study. A dose lowering techni que was utilized adhering to the principles of ALARA. FINDINGS: Evaluation of the abdomen and pelvis is suboptimal on this unenhanced exam. No pneumatosis, free air or portal venous gas is present. There is no significant biliary ductal dilatation status post cholecystectomy. Hypodense splenic lesions are unchanged from earlier exams. These are likely benign. Bilateral adrenal nodules are also unchanged and are likely benign. A cystic 2.7 cm lesion within the pancreatic tail is similar to CT of May 12, 2022. There is no peripancreatic infiltration. A partially calcified nodule along the pancreatic head remains unchanged as well. Both kidneys are markedly atrophic. There is no hydronephrosis. There is colonic diverticulosis without evidence for acute colonic diverticulitis. The small and large bowel is fluid-filled. There is no transition point. There is mild wall thickening of the transverse colon. No fluid collections are present. There are clustered small bowel loops within the lower anterior abdomen on image 203 of 377 with wall thickening and mild adjacent inflammation. Associated small bowel diverticula are likely present. There is no extraluminal gas. This finding is new since prior CT. Lytic lesions within the bilateral acetabula are unchanged in appearance since prior exam. No newly lesions are identified. IMPRESSION: 1. Fluid-filled small and large bowel with mild wall thickening of the transverse colon. The findings may reflect a nonspecific enterocolitis. No transition point to suggest a bowel obstruction. 2. Clustered small bowel loops within the lower anterior abdomen with bowel wall thickening, adjacent inflammation and associated diverticula which contain complex contents/stool. The findings raise the possibility of small bowel diverticulitis. No free air or abscess. 3. No change in appearance of multiple lytic bilateral acetabular lesion since earlier CTs dating back to May 12, 2022. These remain indeterminate. ACT 112: Negative or not required by law. Electronically signed by: Vicente Tapia M.D. 02/07/2024 3:19 PM Abdomen/Pelvis CTA 02/12/24 10:48 CT angio abdomen pelvis w con CLINICAL HISTORY: 78 years-old Female with r/o mesenteric ischemia acute mid abdominal pain COMPARISON STUDY: CT 02/07/2024, May 12, 2022. TECHNIQUE: Following the IV administration of 112 cc of Optiray, CT angiogram of the abdomen and pelvis was performed from the lung bases the proximal femora. Images are reviewed in the axial, sagittal, and coronal planes. 3-D MIPS images are created and assessed. All measurements were obtained according to NASCET criteria. IV contrast was administered without complication. A dose lowering technique was utilized adhering to the principles of ALARA. CT DOSE: 732.49 mGy.cm FINDINGS: CTA: Cardiomegaly with trace pericardial effusion. Extensive atherosclerosis of the abdominal aorta and branch vessels. Celiac trunk is patent with moderate multifocal stenoses of the branch vessels. There is a high-grade stenosis noted within the superior and inferior mesenteric arteries secondary to atherosclerosis. Multifocal high-grade stenoses also noted within the renal arteries. The iliac and imaged femoral arteries are patent. There is a high- grade stenosis in the profunda femoris arteries. No abdominal aortic aneurysm or dissection. CT ABDOMEN/PELVIS: Mild subsegmental left basilar atelectasis. No pneumatosis, free air or portal venous gas is present. There is no significant biliary ductal dilatation status post cholecystectomy. Hypodense splenic lesions, likely benign. Bilateral adrenal nodules are also unchanged and are likely benign. A cystic 2.7 cm lesion within the pancreatic tail is similar to CT of May 12, 2022. There is no peripancreatic infiltration. A partially calcified nodule along the pancreatic head remains unchanged as well. Both kidneys are markedly atrophic. There is no hydronephrosis. There is colonic diverticulosis without evidence for acute colonic diverticulitis. The small and large bowel is fluid-filled it appears similar to prior, again with no identifiable transition point. No fluid collections are present. Previously noted cluster small bowel loops within the lower anterior abdomen which showed wall thickening and mild adjacent inflammation no longer appreciated on today's study. No new areas of bowel wall thickening identified. There is decreased wall thickening of the transverse colon. Lytic lesions within the bilateral acetabula are unchanged in appearance since prior exam. No newly lesions are identified. IMPRESSION: 1. Atherosclerosis of the abdominal aorta without aneurysm or dissection. 2. Extensive atherosclerosis with high grade stenosis noted at the origin of the superior and inferior mesenteric and renal arteries. 3. Findings suggestive of a nonspecific enterocolitis/diarrheal illness with areas of improved wall thickening. No obstruction identified. 4. No pneumatosis or pneumoperitoneum. 5. Atrophic kidneys. 6. Unchanged lytic acetabular lesions. 7. Additional findings as above. ACT 112: Negative or not required by law. The above report was generated using voice recognition software. It may contain grammatical, syntax or spelling errors. Electronically signed by: Elder Osborn M.D. 02/12/2024 2:21 PM Chest X-Ray 02/12/24 10:48 XR chest 1V portable HISTORY: 78 years-old Female new cough acute cough COMPARISON: 01/30/2024 TECHNIQUE: AP view of the chest FINDINGS: Cardiac silhouette is mildly enlarged. Atherosclerosis of the aorta. No pneumothorax, pleural effusion or overt pulmonary edema. Minimal left basilar atelectasis. Bones appear grossly intact. IMPRESSION: No acute process. ACT 112: Negative or not required by law. The above report was generated using voice recognition software. It may contain grammatical, syntax or spelling errors. Electronically signed by: Elder Osborn M.D. 02/12/2024 11:31 AM Chest X-Ray 02/12/24 13:37 XR chest 1V portable HISTORY: 78 years-old Female Central Line Placement COMPARISON: 02/12/2024 TECHNIQUE: AP view the chest FINDINGS: Cardiomediastinal and hilar silhouettes are unchanged. Right IJ central venous catheter distal tip noted in the expected location of the upper SVC. No pneumothorax, pleural effusion or airspace consolidation. The bones appear intact. IMPRESSION: Status post placement of a right IJ central venous catheter. No postprocedural pneumothorax. ACT 112: Negative or not required by law. The above report was generated using voice recognition software. It may contain grammatical, syntax or spelling errors. Electronically signed by: Elder Osborn M.D. 02/12/2024 2:02 PM
[2024-02-13] MEDS: ALBUMIN 25% 12.5 GM/50 ML VIAL IV SCH (16:31)
--- NOTE | 2024-02-13 16:46 | Surgery Progress Note ---
<Statement entered by Josias Barber DO - 02/14/24 12:45> I had seen and examined this patient with the surgical PA, discussed with vascular surgery and agree with this plan. Date of Service February 13, 2024 Assessment & Plan (1) Diverticulitis of small bowel: Plan: Pt here w/ abdominal pain and CT scan with concern for small bowel diverticulitis and colitis Patient underwent CTA yesterday for ongoing pain and ongoing leukocytosis which revealed extensive atherosclerosis with high grade stenosis noted at the origin of the superior and inferior mesenteric and renal arteries. It also shows ongoing but improving enterocolitis/diarrheal illness . This correlates with her history of pain after eating WBC 25. Patient now in ICU after code ana maría was called and she is found to be in afib Vascular has been consulted for findings on CT and recommending stenting SMA... pt wishes to talk this over with her family No plans for general surgical intervention indicated at this time (2) Mesenteric ischemia: (3) Enterocolitis: Admission and Anticipated Discharge Date Admission Date: February 07, 2024 Subjective Patient reports feeling a little bit better. Abdominal pain remains with palpation. Tolerating full liquids, no nausea/vomiting. + bowel function. Physical Exam Physical Exam: awake, no distress Respiratory: on supplemental O2 Gastrointestinal (Abdomen): Percussion/Palpation: + abdomen tender (generalized discomfort to palpation) and abdomen soft Results & Data Vital Signs (Past 12 Hours) Vital Signs Temp Pulse Pulse Resp BP Pulse Ox O2 Del Method 02/13/24 15:30 67 111/55 L 02/13/24 15:00 64 127/47 L 02/13/24 14:55 61 107/52 L 02/13/24 14:40 97.7 F 64 02/13/24 13:06 98.1 F 02/13/24 13:03 67 14 93 02/13/24 13:00 126/52 L 02/13/24 12:45 65 20 93 02/13/24 12:39 75 22 93 02/13/24 12:21 63 19 96 02/13/24 12:00 66 25 H 94 02/13/24 11:54 67 21 98 02/13/24 11:48 63 17 96 02/13/24 11:39 63 17 89 L 02/13/24 11:00 119/55 L 02/13/24 10:51 64 16 91 02/13/24 10:42 61 16 89 L 02/13/24 10:21 68 5 L 02/13/24 10:15 68 22 02/13/24 10:13 111/63 02/13/24 10:13 111/63 02/13/24 10:13 111/63 02/13/24 10:13 111/63 02/13/24 10:06 66 19 92 02/13/24 10:00 127/46 L 02/13/24 09:57 63 21 94 02/13/24 09:38 97.9 F 02/13/24 09:31 114/49 L 02/13/24 09:31 114/49 L 02/13/24 09:31 114/49 L 02/13/24 09:30 64 17 96 02/13/24 09:24 65 15 94 02/13/24 09:06 Nasal Cannula 02/13/24 09:03 63 18 97 02/13/24 09:00 113/45 L 02/13/24 08:54 64 18 91 02/13/24 08:09 66 19 96 02/13/24 08:00 111/63 02/13/24 07:57 68 21 95 02/13/24 07:00 69 21 97 02/13/24 07:00 113/42 L 02/13/24 07:00 113/42 L 02/13/24 07:00 113/42 L 02/13/24 06:30 110/59 L 02/13/24 06:30 110/59 L 02/13/24 06:21 63 17 98 02/13/24 06:06 67 17 99 02/13/24 06:01 111/37 L 02/13/24 06:01 111/37 L 02/13/24 06:01 111/37 L 02/13/24 06:00 66 22 110/59 L 99 Nasal Cannula 02/13/24 05:51 66 18 96 02/13/24 05:30 103/43 L 02/13/24 05:30 103/43 L 02/13/24 05:30 103/43 L 02/13/24 05:30 68 18 97 02/13/24 05:12 68 22 97 02/13/24 05:00 63 17 100/49 L 96 Nasal Cannula O2 Flow Rate 02/13/24 15:30 02/13/24 15:00 02/13/24 14:55 02/13/24 14:40 02/13/24 13:06 02/13/24 13:03 02/13/24 13:00 02/13/24 12:45 02/13/24 12:39 02/13/24 12:21 02/13/24 12:00 02/13/24 11:54 02/13/24 11:48 02/13/24 11:39 02/13/24 11:00 02/13/24 10:51 02/13/24 10:42 02/13/24 10:21 02/13/24 10:15 02/13/24 10:13 02/13/24 10:13 02/13/24 10:13 02/13/24 10:13 02/13/24 10:06 02/13/24 10:00 02/13/24 09:57 02/13/24 09:38 02/13/24 09:31 02/13/24 09:31 02/13/24 09:31 02/13/24 09:30 02/13/24 09:24 02/13/24 09:06 2 02/13/24 09:03 02/13/24 09:00 02/13/24 08:54 02/13/24 08:09 02/13/24 08:00 02/13/24 07:57 02/13/24 07:00 02/13/24 07:00 02/13/24 07:00 02/13/24 07:00 02/13/24 06:30 02/13/24 06:30 02/13/24 06:21 02/13/24 06:06 02/13/24 06:01 02/13/24 06:01 02/13/24 06:01 02/13/24 06:00 2 02/13/24 05:51 02/13/24 05:30 02/13/24 05:30 02/13/24 05:30 02/13/24 05:30 02/13/24 05:12 02/13/24 05:00 2 PG Care Time/CCT Total # of Minutes Spent Total Time Spent with Patient: Total time spent is greater than 50% in coordination of care (as documented) at patient's floor/unit and/or counseling patient: Coding Level of Care Code 77298 SUB INP/OBS CARE 04/21MIN Diagnoses Diverticulitis of small bowel K57.12 Mesenteric ischemia K55.9 Enterocolitis K52.9
[2024-02-14 04:14] LABS: Albumin Globulin Ratio 1.4 (0.9-2); Albumin Level 2.7 gm/dl (3.4-5.0); BUN Creatinine Ratio 3.9 (10-20); Bilirubin,Total 0.4 mg/dl (0.2-1.0); Calcium 8.3 mg/dl (8.6-10.3); Creatinine Clr Calc Pharmacy 14.8 ml/min; Phosphorus 2.1 mg/dl (2.5-4.9); Potassium 3.6 mmol/L (3.5-5.1); Total Protein 4.7 gm/dl (6.0-8.3)
[2024-02-14 04:53] LABS: Hematocrit (blood only) 23.7 % (37.0-47.0); Hemoglobin 7.6 g/dl (12.0-16.0); Mean Corpuscular Hemoglobin 37.8 pg (25.0-34.0); Mean Corpuscular Hgb Conc 32.1 g/dL (32.0-36.0); Mean Corpuscular Volume 117.9 fL (80.0-100.0); Mean Platelet Volume 11.3 fL (9.4-12.4); Platelet Count 83 K/uL (130-400); RDW Coefficient of Variation 13.8 % (11.5-14.5); RDW Standard Deviation 59.2 fL (36.4-46.3); Red Blood Count 2.01 M/uL (4.20-5.40); White Blood Count 12.71 K/ul (4.8-10.8)
[2024-02-14 04:54] LABS: Basophils # (auto) 0.04 K/uL (0.00-0.20); Basophils % (auto) 0.3 %; Eosinophils # (auto) 0.05 K/uL (0.00-0.50); Eosinophils % (auto) 0.4 %; Immature Granulocytes # (auto) 0.16 K/uL (0.01-0.20); Immature Granulocytes % (auto) 1.3 %; Lymphocytes # (auto) 0.65 K/uL (1.20-3.40); Lymphocytes % (auto) 5.1 %; Macrocytosis Present; Monocytes # (auto) 0.76 K/uL (0.11-0.59); Neutrophils # (auto) 11.05 K/uL (1.40-6.50); Neutrophils % (auto) 86.9 %
[2024-02-14] MEDS ORDERED: POTASSIUM PHOS 3 MMOL/1 ML INFUSION IV STA (05:30)
[2024-02-14] MEDS: POTASSIUM PHOSPHATE 15 MMOL in SODIUM CHLORIDE 0.9% 250 ML IV ONE (06:16)
--- NOTE | 2024-02-14 07:26 | Critical Care Progress Note ---
Date of Service February 14, 2024 Assessment & Plan (1) Mesenteric ischemia: (2) Metabolic acidosis with increased anion gap and accumulation of organic acids: (3) ESRD on dialysis: (4) Abdominal pain: (5) Chronic respiratory failure with hypoxia, on home O2 therapy: (6) Paroxysmal atrial fibrillation: (7) Atrial fibrillation with rapid ventricular response: (8) Herpes simplex iridocyclitis: (9) COPD, moderate: Plan Reason Critically Ill: 78-year-old female with A-fib and rapid ventricular response and period of acute encephalopathy. PLAN: Neuro: [facility] ICU: Negative -- Acute encephalopathy --> improved -Suspect related to hypotension secondary to inability to tolerate atrial fibrillation with rapid ventricular response. TSH 2.75 Resp: --COPD with emphysema Current smoker On Breo at home -- Chronic hypoxic respiratory failure On 2 L oxygen at home Continue with O2 supplementation to keep oxygen saturation between 90-92% CV: -- Hypotension with A-fib RVR -Stat bedside echo being obtained -Cardioversion x 1 200 J into normal sinus rhythm on 02/12/2024 On amiodarone at home Was on phenylephrine Procalcitonin 2.54 and an incisional disease patient 2D echo 02/12/2024: EF 60-65%, RV normal in size and function, moderate MR, small anterior loculated pericardial effusion, no cardiac tamponade, RV normal in size and function Fluids/Renal: -- End-stage renal disease On hemodialysis Gets midodrine [id number] on her dialysis day --Hypocalcemia Corrected calcium 5.9 Calcium gluconate given to the patient PTH is elevated. Cause for hypocalcemia could be chronic hyperphosphatemia, patient is on sevelamer for it ID: Diverticulitis -Being filed by infectious disease: Ceftriaxone 2 g every 24 hours, Flagyl 500 mg every 8 hours -Procalcitonin 2.514 incisional disease patient Patient stool has been negative for C. difficile x 2. p.o. 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 Repeat H&H around noon today Patient is back in A-fib but the rate is still staying around 100 - 110 The right femoral line is dampened, will discontinue it today. Patient's cuff pressures have been in the normal range Vascular surgery has been consulted for high-grade stenosis of the SMA as well as IVANA. Hemodynamically stable to be downgrade to medical floor Please note the above document was generated using voice recognition software. It may contain grammatical, syntax or spelling errors.Any formal questions or concerns about the content, text or information contained within the body of this dictation should be directly addressed to the provider for clarification. Admission and Anticipated Discharge Date Admission Date: February 07, 2024 Subjective Patient seen and examined. No acute distress, no adverse events overnight Still complaining of mild abdominal pain No headache, no blurry vision No shortness of breath Was saturating 98% on 2 L nasal cannula Has been afebrile Review of Systems 2 Review of Systems: All systems reviewed & are unremarkable except as noted in Subjective Physical Exam 2 Physical Exam: Constitutional: No acute distress HEENT: EOMI, PERRLA Respiratory system: Decreased air entry bilaterally, no wheeze, no rhonchi, mild crackles bilateral lower lobes CVS: S1-S2 positive, positive 2 out of 6 systolic murmur appreciated best at aorta Abdomen: Soft, nondistended, positive bowel sounds x4, minimal diffuse abdominal tenderness, no rebound Extremities: + 1 pulses bilaterally radialis/ dorsalis pedis, no cyanosis, minimal pitting edema, warm extremities Neuro: Awake alert oriented x3 Psych: Normal mood and affect G/U: No [place] Skin: no rashes, warm and dry Lymphatic: no cervical or axillary lymphadenopathy Results & Data Results & Data Vital Signs (Past 12 Hours) Vital Signs Temp Pulse Pulse Resp BP BP BP 02/14/24 06:09 96 H 18 02/14/24 06:00 95/52 L 02/14/24 05:00 98 H 19 92/69 L 02/14/24 04:13 37.1 C 103 H 18 96/78 L 107/38 L 02/14/24 03:00 125 H 17 02/14/24 02:03 105 H 20 02/14/24 02:00 102/49 L 02/14/24 01:18 90 20 02/14/24 01:00 109/49 L 02/14/24 00:51 36.9 C 02/14/24 00:06 94 H 19 02/14/24 00:00 107/69 02/14/24 00:00 99 H 02/13/24 23:30 108 H 17 02/13/24 23:00 108/57 L 02/13/24 22:00 94/46 L 02/13/24 21:59 97 H 8 L 02/13/24 21:33 93 H 22 02/13/24 21:30 95/55 L 02/13/24 21:20 105 H 14 02/13/24 21:00 103/49 L 02/13/24 20:40 02/13/24 20:30 106/50 L 02/13/24 20:18 106 H 18 02/13/24 20:00 101/53 L 02/13/24 19:38 36.7 C 96 H 19 104/47 L 99/30 L Pulse Ox O2 Del Method O2 Flow Rate 02/14/24 06:09 94 02/14/24 06:00 02/14/24 05:00 92 Nasal Cannula 1 02/14/24 04:13 95 Nasal Cannula 1 02/14/24 03:00 91 02/14/24 02:03 92 02/14/24 02:00 02/14/24 01:18 93 02/14/24 01:00 02/14/24 00:51 02/14/24 00:06 96 02/14/24 00:00 02/14/24 00:00 02/13/24 23:30 88 L 02/13/24 23:00 02/13/24 22:00 02/13/24 21:59 92 02/13/24 21:33 92 02/13/24 21:30 02/13/24 21:20 90 02/13/24 21:00 02/13/24 20:40 Nasal Cannula 1 02/13/24 20:30 11/18/24 20:18 94 02/13/24 20:00 02/13/24 19:38 93 Nasal Cannula 1 Laboratory Results 02/14/24 03:40 02/14/24 03:40 Coding Level of Care Code 44153 SUB INP/OBS CARE 3/50MIN Diagnoses Mesenteric ischemia K55.9 Metabolic acidosis with increased anion gap and accumulation of organic acids E87.20 ESRD on dialysis N18.6; Z99.2 Abdominal pain R10.84 Abdominal location: generalized Chronic respiratory failure with hypoxia, on home O2 therapy J96.11; Z99.81 Paroxysmal atrial fibrillation I48.0 Atrial fibrillation with rapid ventricular response I48.91 Herpes simplex iridocyclitis B00.51 COPD, moderate J44.9 (4) Abdominal pain Abdominal location: generalized Qualified Code(s): R10.84 - Generalized abdominal pain
[2024-02-14] MEDS: PANTOprazole 40 MG TAB PO SCH (07:55)
--- NOTE | 2024-02-14 08:48 | Palliative Care Consultation ---
Date of Consultation February 14, 2024 Assessment & Plan (1) Mesenteric ischemia: (2) Diastolic CHF: Present on Admission?: Yes (3) Chronic respiratory failure with hypoxia, on home O2 therapy: stable Present on Admission?: Yes (4) Atrial fibrillation with rapid ventricular response: Present on Admission?: No (5) Diverticulitis of small bowel: Present on Admission?: Yes (6) Abdominal pain: likely 2/2 #1, 3 Abdominal location: generalized Qualified Code(s): R10.84 - Generalized abdominal pain (7) ESRD on dialysis: Chronic HD 3x/week; followed by nephrology Present on Admission?: Yes (8) History of GI bleed: Present on Admission?: No Plan Medical mgmt per primary. Pt shared abd pain is "under control" , has required no PRN opiate medications since 02/11 at 08:00. No changes in pain mgmt regime at this time. Pt shared that her daughter is HCPOA and would like to delay GOC conversation until she is present. Daughter will be present with pt tomorrow afternoon. Plan to revisit GOC with pt and her HCPOA/Dtr tomorrow timing TBD. History of Present Illness Reason for Consultation: Goals of care/advanced care planning Requesting Physician: Aziza Frederick MD Attending Physician: Aziza Frederick MD History of Present Illness This is a 78-year-old female w/ PMHx of chronic hypoxic respiratory failure on 3 L home O2, COPD, PAF (off AC 2/2 GIB), mesenteric artery stenosis, HTN, mitral regurgitation, ESRD on HD, HLD, T2DM, secondary hyperparathyroidism, anemia, ESRD on HD, hypogammaglobinemia and tobacco abuse who presents to ED secondary to abdominal pain. Recent admission 01/23 - 01/29 for near syncope 2/2 labile HTN with HD. Cardiology dc'd Lisinopril and midodrine continued 3x weekly. Hospitalization c/b abd pain/ diarrhea, cdiff negative. Received Empiric oral vanco [facility] pt continued w/ worsening abd pain, n/v/d. Vanco increased to 250mg QID. She became hypotensive with elevated wbc and returned to ED for eval. this admission CTA abdomen due to concern for mesenteric ischemia. During CTA she developed A-fib with RVR, requiring emergent cardioversion (to SR) and admission to ICU for pressor support 2/2 severe metabolic acidosis ICU physician had extensive discussion with daughter and son-in-law at bedside explaining patient's medical course at this time and her will to live despite her chronic progressing medical conditions. Daughter notes that patient has purposely not signed a POA but did make her wishes known to her daughter that she does not want to be in the residential and would likely not want to have surgery should the CTA of the abdomen pelvis note mesenteric ischemia. Discussion of patient's full CODE STATUS and daughter agreeing that based on patient's wishes she would want to be a DNR/DNI. CTA abdomen pelvis revealed "h igh grade stenosis noted at the origin of the superior and inferior mesenteric and renal arteries." Vascular surgery recommends stenting, patient and family considering options of surgery vs conservative mgmt. Pt made DNR/DNI and palliative care was consulted to further discuss goals of care with pt/family. Allergies Allergy/AdvReac Type Severity Reaction Status Date / Time chlorhexidine Allergy Intermediate ITCHING Verified 05/24/23 14:59 Home Medications Medication Instructions Recorded Confirmed Type ipratropium 0.5 mg-albuterol 3 mg 3 ml inhalation QID PRN Shortness 09/26/18 02/07/24 History (2.5 mg base)/3 mL nebulization Of Breath soln vitamin B complex-vitamin C-folic 1 tab PO QAM 09/26/18 02/07/24 History acid 0.8 mg tablet (Arabella-Tika) fluticasone propionate 50 2 spray intranasal HS 01/18/19 02/07/24 History mcg/actuation nasal spray,suspension albuterol sulfate 90 mcg/actuation 2 puff inhalation Q4H PRN Wheezing 04/05/19 02/07/24 History aerosol inhaler acetaminophen 325 mg tablet 650 mg PO Q6H PRN Pain 04/14/21 02/07/24 History (Tylenol) camphor-menthol 0.5 %-0.5 % lotion 1 applic topical DIRECTED PRN 04/14/21 02/07/24 History Itching epoetin gabriel 10,000 unit/mL 0 unit IV DIRECTED 04/14/21 02/07/24 History injection solution (Procrit) lidocaine-prilocaine 2.5 %-2.5 % 1 applic topical DIRECTED PRN 04/14/21 02/07/24 History topical cream PRIOR TO DIALYSIS loperamide 2 mg capsule (Imodium 2 mg PO QID PRN Diarrhea 04/14/21 02/07/24 History A-D) valacyclovir 1 gram tablet 1,000 mg PO QAM 04/14/21 02/07/24 History fluorometholone 0.1 % eye 1 drp OPL QAM 01/25/22 02/07/24 History drops,suspension amiodarone 200 mg tablet 200 mg PO DAILY 30 days #60 tabs 05/12/22 02/07/24 Rx docusate sodium 100 mg capsule 100 mg PO BID PRN Constipation 04/01/23 02/07/24 History (Colace) fluticasone furoate 200 1 inh inhalation DAILY 04/01/23 02/07/24 History mcg-vilanterol 25 mcg/dose inhalation powder (Breo Ellipta) midodrine 2.5 mg tablet 2.5 mg PO 3XWK 12/31/23 02/07/24 History lanthanum 500 mg chewable tablet 500 mg PO UD 01/24/24 02/07/24 History sevelamer carbonate 800 mg tablet 1,600 mg PO UD 01/24/24 02/07/24 History (Renvela) vancomycin 1,000 mg intravenous 250 mg PO Q6 02/07/24 02/07/24 History injection Patient History Medical History ESRD (end stage renal disease) on dialysis follows with Dr. Reed; Hillary Corley Sat - [facility] (since 02/2013) On home oxygen therapy 3 LPM cont History of colon polyps Tobacco use History of GI bleed Renal cyst H/O cardiovascular stress test "05/2013 - negative for ischemia" Pancreatic cyst Obesity Psoriasis Adrenal adenoma Surgical History History of surgery AVF creation History of intestinal surgery Family History Father Myocardial infarction, Onset Age: 64 Diabetes Mother , 87 Alzheimer disease Brother Diabetes Other No family history of adverse response to anesthesia Social History Smoking Status: Current every day smoker Tobacco Type: Cigarettes Cigarettes Per Day: 3; Second Hand Exposure: Yes; Do You Dip or Chew Tobacco: No; Hx Alcohol Use: No Hx Substance Use: No Preferred Language: Sinhala Communication Ability: Effective 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 O2 Neuro: AAOx3, moves extremities HEENT: PERRLA CV: rrr, mild peripheral edema Resp: Breath sounds clear bilaterally, no increased effort of breathing Abdomen: Soft, +some tenderness to palpation Lower back: stage II sacral ulcer in sacral area Extremities: moves all extremities with normal strength and purpose Results & Data Vital Signs (Past 12 Hours) Vital Signs Temp Pulse Pulse Resp BP BP BP 02/14/24 06:09 96 H 18 02/14/24 06:00 95/52 L 02/14/24 05:00 98 H 19 92/69 L 02/14/24 04:13 37.1 C 103 H 18 96/78 L 107/38 L 02/14/24 03:00 125 H 17 02/14/24 02:03 105 H 20 02/14/24 02:00 102/49 L 02/14/24 01:18 90 20 02/14/24 01:00 109/49 L 02/14/24 00:51 36.9 C 02/14/24 00:06 94 H 19 02/14/24 00:00 107/69 02/14/24 00:00 99 H 02/13/24 23:30 108 H 17 02/13/24 23:00 108/57 L 02/13/24 22:00 94/46 L 02/13/24 21:59 97 H 8 L 02/13/24 21:33 93 H 22 02/13/24 21:30 95/55 L 02/13/24 21:20 105 H 14 02/13/24 21:00 103/49 L Pulse Ox O2 Del Method O2 Flow Rate 02/14/24 06:09 94 02/14/24 06:00 02/14/24 05:00 92 Nasal Cannula 1 02/14/24 04:13 95 Nasal Cannula 1 02/14/24 03:00 91 02/14/24 02:03 92 02/14/24 02:00 02/14/24 01:18 93 02/14/24 01:00 02/14/24 00:51 02/14/24 00:06 96 02/14/24 00:00 02/14/24 00:00 02/13/24 23:30 88 L 02/13/24 23:00 02/13/24 22:00 02/13/24 21:59 92 02/13/24 21:33 92 02/13/24 21:30 02/13/24 21:20 90 02/13/24 21:00 Laboratory Results Abnormal lab results 02/14/24 Range/Units 03:40 WBC 12.71 H D (4.8-10.8) K/ul RBC 2.01 L (4.20-5.40) M/uL Hgb 7.6 L (12.0-16.0) g/dl Hct 23.7 L (37.0-47.0) % MCV 117.9 H (80.0-100.0) fL MCH 37.8 H (25.0-34.0) pg RDW Std Deviation 59.2 H (36.4-46.3) fL Plt Count 83 L (130-400) K/uL Neut # (Auto) 11.05 H (1.40-6.50) K/uL Lymph # (Auto) 0.65 L (1.20-3.40) K/uL [place] # (Auto) 0.76 H (0.11-0.59) K/uL Creatinine 3.32 H D (0.6-1.2) mg/dl BUN/Creatinine Ratio 3.9 L (10-20) Calcium 8.3 L D (8.6-10.3) mg/dl Phosphorus 2.1 L (2.5-4.9) mg/dl Total Protein 4.7 L D (6.0-8.3) gm/dl Albumin 2.7 L (3.4-5.0) gm/dl Globulin 2.0 L (2.5-4.0) gm/dl Diagnostic Findings Abdomen/Pelvis CT 02/07/24 13:22 CT OF THE ABDOMEN AND PELVIS WITHOUT CONTRAST CLINICAL HISTORY: Diffuse abdominal pain. COMPARISON STUDY: CT of the abdomen and pelvis January 26, 2024. KUB January 27, 2024. TECHNIQUE: Axial images of the abdomen and pelvis were obtained without IV contrast. Images were reviewed in the axial, sagittal, and coronal planes. Automated exposure control was utilized for the study. A dose lowering techn ique was utilized adhering to the principles of ALARA. FINDINGS: Evaluation of the abdomen and pelvis is suboptimal on this unenhanced exam. No pneumatosis, free air or portal venous gas is present. There is no significant biliary ductal dilatation status post cholecystectomy. Hypodense splenic lesions are unchanged from earlier exams. These are likely benign. Bilateral adrenal nodules are also unchanged and are likely benign. A cystic 2.7 cm lesion within the pancreatic tail is similar to CT of May 12, 2022. There is no peripancreatic infiltration. A partially calcified nodule along the pancreatic head remains unchanged as well. Both kidneys are markedly atrophic. There is no hydronephrosis. There is colonic diverticulosis without evidence for acute colonic diverticulitis. The small and large bowel is fluid-filled. There is no transition point. There is mild wall thickening of the transverse colon. No fluid collections are present. There are clustered small bowel loops within the lower anterior abdomen on image 203 of 377 with wall thickening and mild adjacent inflammation. Associated small bowel diverticula are likely present. There is no extraluminal gas. This finding is new since prior CT. Lytic lesions within the bilateral acetabula are unchanged in appearance since prior exam. No newly lesions are identified. IMPRESSION: 1. Fluid-filled small and large bowel with mild wall thickening of the transverse colon. The findings may reflect a nonspecific enterocolitis. No transition point to suggest a bowel obstruction. 2. Clustered small bowel loops within the lower anterior abdomen with bowel wall thickening, adjacent inflammation and associated diverticula which contain complex contents/stool. The findings raise the possibility of small bowel diverticulitis. No free air or abscess. 3. No change in appearance of multiple lytic bilateral acetabular lesion since earlier CTs dating back to May 12, 2022. These remain indeterminate. ACT 112: Negative or not required by law. Electronically signed by: Vicente Tapia M.D. 02/07/2024 3:19 PM Abdomen/Pelvis CTA 02/12/24 10:48 CT angio abdomen pelvis w con CLINICAL HISTORY: 78 years-old Female with r/o mesenteric ischemia acute mid abdominal pain COMPARISON STUDY: CT 02/07/2024, May 12, 2022. TECHNIQUE: Following the IV administration of 112 cc of Optiray, CT angiogram of the abdomen and pelvis was performed from the lung bases the proximal femora. Images are reviewed in the axial, sagittal, and coronal planes. 3-D MIPS images are created and assessed. All measurements were obtained according to NASCET criteria. IV contrast was administered without complication. A dose lowering technique was utilized adhering to the principles of ALARA. CT DOSE: 732.49 mGy.cm FINDINGS: CTA: Cardiomegaly with trace pericardial effusion. Extensive atherosclerosis of the abdominal aorta and branch vessels. Celiac trunk is patent with moderate multifocal stenoses of the branch vessels. There is a high-grade stenosis noted within the superior and inferior mesenteric arteries secondary to atherosclerosis. Multifocal high-grade stenoses also noted within the renal arteries. The iliac and imaged femoral arteries are patent. There is a high- grade stenosis in the profunda femoris arteries. No abdominal aortic aneurysm or dissection. CT ABDOMEN/PELVIS: Mild subsegmental left basilar atelectasis. No pneumatosis, free air or portal venous gas is present. There is no significant biliary ductal dilatation status post cholecystectomy. Hypodense splenic lesions, likely benign. Bilateral adrenal nodules are also unchanged and are likely benign. A cystic 2.7 cm lesion within the pancreatic tail is similar to CT of May 12, 2022. There is no peripancreatic infiltration. A partially calcified nodule along the pancreatic head remains unchanged as well. Both kidneys are markedly atrophic. There is no hydronephrosis. There is colonic diverticulosis without evidence for acute colonic diverticulitis. The small and large bowel is fluid-filled it appears similar to prior, again with no identifiable transition point. No fluid collections are present. Previously noted cluster small bowel loops within the lower anterior abdomen which showed wall thickening and mild adjacent inflammation no longer appreciated on today's study. No new areas of bowel wall thickening identified. There is decreased wall thickening of the transverse colon. Lytic lesions within the bilateral acetabula are unchanged in appearance since prior exam. No newly lesions are identified. IMPRESSION: 1. Atherosclerosis of the abdominal aorta without aneurysm or dissection. 2. Extensive atherosclerosis with high grade stenosis noted at the origin of the superior and inferior mesenteric and renal arteries. 3. Findings suggestive of a nonspecific enterocolitis/diarrheal illness with areas of improved wall thickening. No obstruction identified. 4. No pneumatosis or pneumoperitoneum. 5. Atrophic kidneys. 6. Unchanged lytic acetabular lesions. 7. Additional findings as above. ACT 112: Negative or not required by law. The above report was generated using voice recognition software. It may contain grammatical, syntax or spelling errors. Electronically signed by: Elder Osborn M.D. 02/12/2024 2:21 PM Chest X-Ray 02/12/24 13:37 XR chest 1V portable HISTORY: 78 years-old Female Central Line Placement COMPARISON: 02/12/2024 TECHNIQUE: AP view the chest FINDINGS: Cardiomediastinal and hilar silhouettes are unchanged. Right IJ central venous catheter distal tip noted in the expected location of the upper SVC. No pneumothorax, pleural effusion or airspace consolidation. The bones appear intact. IMPRESSION: Status post placement of a right IJ central venous catheter. No postprocedural pneumothorax. ACT 112: Negative or not required by law. The above report was generated using voice recognition software. It may contain grammatical, syntax or spelling errors. Electronically signed by: Elder Osborn M.D. 02/12/2024 2:02 PM Medications Administered Current Inpatient Medications Acetaminophen (Acetaminophen 325 Mg Tab) 650 mg PO Q4H PRN PRN Reason: Pain or Fever Stop: 03/08/24 16:11 Albuterol (Albuterol Hfa 8 Gm Inhaler) 2 puffs INH Q4H PRN PRN Reason: Wheezing Stop: 03/08/24 19:44 Albuterol (Albut/Ipratrop 3mg/0.5mg Neb 3 Ml Vial) 3 ml INH QID PRN; Protocol PRN Reason: Shortness Of Breath Stop: 03/08/24 19:44 Amiodarone HCl (Amiodarone 200 Mg Tab) 200 mg PO DAILY MARY Stop: 03/09/24 08:59 Last Admin: 02/14/24 07:55 Dose: 200 mg Fluticasone Propionate (Fluticasone Propionate Na Spr 16 Gm Btl) 2 sprays NA HS [facility] Stop: 03/08/24 20:59 Last Admin: 02/13/24 20:29 Dose: 2 sprays Fluticasone/Vilanterol (Fluticasone/Vilanterol 200/25mcg 14 Puffs/Inhaler) 1 puffs INH DAILY [facility] Stop: 03/09/24 08:59 Last Admin: 02/14/24 07:55 Dose: 1 puffs Heparin Sodium (Porcine) (Heparin Sod 5,000 Unit/0.5 Ml Vial) 5,000 units SQ Q8 MARY Stop: 03/08/24 21:59 Last Admin: 02/12/24 05:57 Dose: 5,000 units Hydromorphone HCl (Hydromorphone Inj 0.5 Mg/0.5 Ml Syr) 0.25 mg IV Q6H PRN PRN Reason: Severe Pain (Scale 7, 8, 9,10) Stop: 02/22/24 10:02 Promethazine HCl (Phenergan) 6.25 mg in 50.25 mls @ 201 mls/hr IV Q6H PRN PRN Reason: Nausea And Vomiting Stop: 03/08/24 19:44 Metronidazole (Flagyl) 500 mg in 100 mls @ 100 mls/hr IV Q8H [facility]; Protocol Stop: 02/18/24 09:29 Last Admin: 02/14/24 08:59 Dose: 100 mls/hr Ceftriaxone Sodium (Rocephin) 2,000 mg in 50 mls @ 100 mls/hr IV Q24H [facility] Stop: 02/18/24 10:14 Last Admin: 02/14/24 08:59 Dose: 100 mls/hr Phenylephrine HCl (Phenylephrine/Nss) 25 mg in 250 mls @ 22.14 mls/hr IV .[id number] [facility]; Protocol Stop: 03/13/24 17:14 Last Admin: 02/14/24 03:08 Dose: Not Given Lactobacillus Acidophilus (Advanced Probiotic 625 Mg Capsule) 1,250 mg PO DAILY [facility] Stop: 03/09/24 08:59 Last Admin: 02/14/24 07:55 Dose: 1,250 mg Lidocaine (Lidocaine 4% Cream 15 Gm Tube) 1 appln EXT PRN PRN PRN Reason: Pain Stop: 03/14/24 15:33 Melatonin (Melatonin 3 Mg Tab) 6 mg PO HS PRN PRN Reason: Sleep Stop: 03/08/24 20:59 Last Admin: 02/08/24 22:11 Dose: 6 mg Midodrine (Midodrine Hcl 2.5 Mg Tab) 2.5 mg PO MoWeFr@1400 [facility] Stop: 03/09/24 13:59 Last Admin: 02/13/24 14:22 Dose: 2.5 mg Midodrine (Midodrine Hcl 2.5 Mg Tab) 2.5 mg PO TID@0800,1200,1700 [facility] Stop: 03/15/24 07:59 Last Admin: 02/14/24 08:59 Dose: 2.5 mg Miscellaneous (Lanthanum*Order Awaiting Action) 1 each N/A QS [facility] Stop: 03/09/24 20:14 Last Admin: 02/14/24 07:55 Dose: Not Given Pantoprazole Sodium (Pantoprazole 40 Mg Tab) 40 mg PO QAM [facility] Stop: 03/15/24 08:59 Last Admin: 02/14/24 07:55 Dose: 40 mg Tramadol HCl (Tramadol Hcl 50 Mg Tablet) 25 mg PO Q4H PRN PRN Reason: Moderate Pain (Scale 4, 5, 6) Stop: 03/09/24 10:02 Last Admin: 02/12/24 08:00 Dose: 25 mg Valacyclovir HCl (Valacyclovir Hcl 500 Mg Tablet) 500 mg PO Q24H [facility] Stop: 03/09/24 15:59 Last Admin: 02/13/24 18:27 Dose: 500 mg Vitamin B Complex/Folic Acid (Nephrocaps) 1 cap PO QAM [facility] Stop: 03/09/24 08:59 Last Admin: 02/14/24 07:55 Dose: 1 cap PG Care Time/CCT Total # of Minutes Spent Total Time Spent with Patient: Total time spent is greater than 50% in coordination of care (as documented) at patient's floor/unit and/or counseling patient: Advanced Care Planning 04806 Advanced Care Planning 30 [place] [address] INT INP/OBS CARE 1/40MIN Patient Type New History Problem Focused Exam Problem Focused Medical Decision Making Moderate Complexity Diagnoses Mesenteric ischemia K55.9 Diastolic CHF I50.30 Chronic respiratory failure with hypoxia, on home O2 therapy J96.11; Z99.81 Atrial fibrillation with rapid ventricular response I48.91 Diverticulitis of small bowel K57.12 Abdominal pain R10.84 Abdominal location: generalized ESRD on dialysis N18.6; Z99.2 History of GI bleed Z87.19 Additional Codes Advanced Care Planning - 04827 Advanced Care Planning 30 Min: 94036 Advanced Care Planning 30 Min ([id number])
--- NOTE | 2024-02-14 08:53 | Nephrology Progress Note ---
Date of Service February 14, 2024 Assessment & Plan (1) ESRD on hemodialysis: Plan: Long standing ESRD patient with Anuria. has a good Left UE AVF for access; no issues continues to appear vol depleted from Acute GI issues/chronic diarrhea and poor Appetite. leukocytosis labile but overall improving from 31 11/ > 10 > 26 >13 today. hgb 9.7 > 10.2 > 9.2 > 7.6 -- had 4K units epo 02/09 and 02/12 02/09 had no UF and had gentle IVF d5nss at 60/hr. No UF w/ 02/12 tx either on full liquid diet >> fluid restriction not indicated; dialysis diet not indicated at this time as K 3.6 / controlled continue to hold renvela and encourage po >>plan HD tomorrow will work around OR plans if any > 3.25hr, no UF as she's loosing lots of fluid w/ BM and is hardly eating and BP soft/02 needs stable; will try albumin w/ tx midway prn; instensify epo to 10 K; 3K bath continue low dose midodrine w/ HD; else would not intervene specifically for hypotension Care coordinated w/ Cara Sawyer and Yonis, w/ PAYAM Osorio re dialysis timing, possible vascular procedure, risk for bleeding, lack of alternative approaches apart from hospice; we are in agreement (2) Diverticulitis of small bowel: Plan: Reason for Admission. has Sig symptoms and very very high WBC at 31K peak on 02/07; WBC climbing again and w/ ongoing abd pain, minimal po, and ongoing disruptive diarrhea. On PO Vanco and flagyl and Ceftraizxone. All abx Can be continued. (3) Mesenteric ischemia: Plan: vascular suggests mesenteric angio w/ SMA stent > for OR tomorrow pending d/w family; cardiology concerns re potential bleeding w/ single v dual anti plt therapy noted given past bleeding w/ AC for a fib not a candidate for large open high risk surgery (4) Atrial fibrillation with rapid ventricular response: Plan: s/p cardioversion; rate controlled now >>maintain mag of 2 and K of 4 >> no mag needed today; critical care already gave K phos Admission and Anticipated Discharge Date Admission Date: February 07, 2024 Subjective no acute events ON; palliative c/s pending; sbp 90s most of night; uneventful 3.25 hr HD yesterday w/o UF. still w/ abd pain, still minimal po; at least one loose bm today not unexpected; pt strongly considering vascular procedure for am but wants to d/w daughter; did flip into AF ON; cardiology raises h/o past bleeding as potential complication to obligate AC post stenting Review of Systems 2 Review of Systems: All systems reviewed & are unremarkable except as noted in Subjective Physical Exam 2 Constitutional: well developed, + thin, + frail appearing and cooperative; no acute distress ENMT: Mouth: + dry oral mucous membranes Respiratory: normal respiratory effort Auscultation: + diminished lung sounds Cardiovascular: Rate/Rhythm: regular rate and regular rhythm Extremities: + AV fistula; no edema Musculoskeletal: Extremities: strength 5/5 throughout Skin: no rashes, warm and dry Results & Data Vital Signs (Past 12 Hours) Vital Signs Temp Pulse Pulse Resp BP BP BP 02/14/24 06:09 96 H 18 02/14/24 06:00 95/52 L 02/14/24 05:00 98 H 19 92/69 L 02/14/24 04:13 37.1 C 103 H 18 96/78 L 107/38 L 02/14/24 03:00 125 H 17 02/14/24 02:03 105 H 20 02/14/24 02:00 102/49 L 02/14/24 01:18 90 20 02/14/24 01:00 109/49 L 02/14/24 00:51 36.9 C 02/14/24 00:06 94 H 19 02/14/24 00:00 107/69 02/14/24 00:00 99 H 02/13/24 23:30 108 H 17 02/13/24 23:00 108/57 L 02/13/24 22:00 94/46 L 02/13/24 21:59 97 H 8 L 02/13/24 21:33 93 H 22 02/13/24 21:30 95/55 L 02/13/24 21:20 105 H 14 02/13/24 21:00 103/49 L Pulse Ox O2 Del Method O2 Flow Rate 02/14/24 06:09 94 02/14/24 06:00 02/14/24 05:00 92 Nasal Cannula 1 02/14/24 04:13 95 Nasal Cannula 1 02/14/24 03:00 91 11/19/24 02:03 92 02/14/24 02:00 02/14/24 01:18 93 02/14/24 01:00 02/14/24 00:51 02/14/24 00:06 96 02/14/24 00:00 02/14/24 00:00 02/13/24 23:30 88 L 02/13/24 23:00 02/13/24 22:00 02/13/24 21:59 92 02/13/24 21:33 92 02/13/24 21:30 02/13/24 21:20 90 02/13/24 21:00 Laboratory Results 02/14/24 03:40 02/14/24 03:40
[2024-02-14] MEDS: MIDODRINE HCL 2.5 MG TAB PO SCH (08:59)
--- NOTE | 2024-02-14 09:06 | Communication Note ---
Date of Service: February 14, 2024 Spoke with pt again today regarding mesenteric angio with SMA stent to be done in OR tomorrow. She is agreeable, however, still wished us to speak with her daughter, Delphine. Dr Vale spoke with daughter by phone today as well, she is agreeable.
--- NOTE | 2024-02-14 10:06 | Surgery Progress Note ---
Date of Service February 14, 2024 Assessment & Plan (1) Diverticulitis of small bowel: Plan: Pt here w/ abdominal pain with initial CT scan with concern for small bowel diverticulitis and colitis During her hospitalization she had ongoing abdominal pain and leukocytosis prompting a CTA which showed extensive atherosclerosis with high grade stenosis noted at the origin of the superior and inferior mesenteric and renal arteries. It also shows ongoing but improving enterocolitis/diarrheal illness WBC now 12, Hbg 7.6 (9.2) Abdomen soft, non distended, with some abdominal pain more so on the R side Vascular has been consulted for findings on CT and recommending stenting SMA... pt wishes to talk this over with her family Vascular planning on SMA stent tomorrow; npo at midnight No plans for general surgical intervention indicated at this time; we will foll ow from the periphery, but please call with any questions/concerns (2) Mesenteric ischemia: (3) Enterocolitis: Admission and Anticipated Discharge Date Admission Date: February 07, 2024 Supervising Physician Co-Signing Physician Notes Patient seen and examined, agree with above. Admitted with abdominal pain and colon distention, CTA eventually showed SMA atherosclerosis, plan for stent placement with Dr. Vale tomorrow. No current general surgical issues, abdomen benign, tolerating diet and having bowel movements. Surgery will sign off, call with questions or concerns. Subjective Patient feeling okay. Has intermittent abdominal pain that comes and goes. No nausea/vomiting. + bowel function. Endorses pain worse after eating. Physical Exam Physical Exam: awake, no distress Gastrointestinal (Abdomen): Inspection/Auscultation: abdomen not distended Percussion/Palpation: + abdomen tender (generalized discomfort to palpation) and abdomen soft Results & Data Vital Signs (Past 12 Hours) Vital Signs Temp Pulse Pulse Resp BP BP BP 02/14/24 09:11 02/14/24 09:01 101/70 02/14/24 08:06 117 H 15 02/14/24 08:00 104/68 02/14/24 06:09 96 H 18 02/14/24 06:00 95/52 L 02/14/24 05:00 98 H 19 92/69 L 02/14/24 04:13 98.8 F 103 H 18 96/78 L 107/38 L 02/14/24 03:00 125 H 17 02/14/24 02:03 105 H 20 11/19/24 02:00 102/49 L 02/14/24 01:18 90 20 02/14/24 01:00 109/49 L 02/14/24 00:51 98.4 F 02/14/24 00:06 94 H 19 02/14/24 00:00 107/69 02/14/24 00:00 99 H 02/13/24 23:30 108 H 17 02/13/24 23:00 108/57 L Pulse Ox O2 Del Method O2 Flow Rate 02/14/24 09:11 Nasal Cannula 2 02/14/24 09:01 02/14/24 08:06 93 02/14/24 08:00 02/14/24 06:09 94 02/14/24 06:00 02/14/24 05:00 92 Nasal Cannula 1 02/14/24 04:13 95 Nasal Cannula 1 02/14/24 03:00 91 02/14/24 02:03 92 02/14/24 02:00 02/14/24 01:18 93 02/14/24 01:00 02/14/24 00:51 02/14/24 00:06 96 02/14/24 00:00 02/14/24 00:00 02/13/24 23:30 88 L 02/13/24 23:00 PG Care Time/CCT Total # of Minutes Spent Total Time Spent with Patient: Total time spent is greater than 50% in coordination of care (as documented) at patient's floor/unit and/or counseling patient: Coding Level of Care Code 34313 SUB INP/OBS CARE Diagnoses Diverticulitis of small bowel K57.12 Mesenteric ischemia K55.9 Enterocolitis K52.9
--- NOTE | 2024-02-14 10:49 | Cardiology Progress Note ---
Date of Service February 14, 2024 Assessment & Plan (1) Paroxysmal atrial fibrillation: (2) ESRD (end stage renal disease) on dialysis: (3) Chronic respiratory failure with hypoxia: (4) Mesenteric ischemia: Plan 78-year-old female readmitted on 02/06 with poor p.o. intake, nausea, vomiting, diarrhea, and abdominal pain. Unresponsiveness episode following CT on 02/11, undergoing cardioversion of atrial fibrillation (present since February 10, 2024) back to sinus rhythm. 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 Ventricular rates between 90 and 115 bpm at present. I think is reasonable to continue amiodarone 200 mg p.o. daily for now for rate control in the setting of hypotension in a dialysis patient.Electrolytes improved today. It is noted this patient has chronic anemia. Previously anticoagulation for atrial fibrillation was discontinued due to GI bleeding. I reviewed her chart, and EGD was performed in 2018 documented healed gastric and duodenal ulcers. Will need to keep her bleeding history in mind with regards to candidacy for single antiplatelet therapy or dual antiplatelet therapy with proposed SMA stenting. Update provided to vascular team by phone call. Admission and Anticipated Discharge Date Admission Date: February 07, 2024 Subjective Patient seen in cardiology follow up. No acute complaints. Tolerating liquid diet. Physical Exam Physical Exam: General: Alert to person and place. No acute distress. Lethargic. Neck: No JVD Heart: RRR. Systolic murmur. No rub. Lungs: Clear to auscultation anteriorly. Abdomen: +BS. Nontender. No organomegaly. Extremities: No clubbing, cyanosis, or edema. Limited neurological examination is without focal deficits. Results & Data Vital Signs (Past 12 Hours) Vital Signs Temp Pulse Pulse Resp BP BP BP 02/14/24 09:11 02/14/24 09:01 101/70 02/14/24 08:06 117 H 15 02/14/24 08:00 104/68 02/14/24 06:09 96 H 18 02/14/24 06:00 95/52 L 11/19/24 05:00 98 H 19 92/69 L 02/14/24 04:13 37.1 C 103 H 18 96/78 L 107/38 L 02/14/24 03:00 125 H 17 02/14/24 02:03 105 H 20 02/14/24 02:00 102/49 L 02/14/24 01:18 90 20 02/14/24 01:00 109/49 L 02/14/24 00:51 36.9 C 02/14/24 00:06 94 H 19 02/14/24 00:00 107/69 02/14/24 00:00 99 H 02/13/24 23:30 108 H 17 02/13/24 23:00 108/57 L Pulse Ox O2 Del Method O2 Flow Rate 02/14/24 09:11 Nasal Cannula 2 02/14/24 09:01 02/14/24 08:06 93 02/14/24 08:00 02/14/24 06:09 94 02/14/24 06:00 02/14/24 05:00 92 Nasal Cannula 1 02/14/24 04:13 95 Nasal Cannula 1 02/14/24 03:00 91 02/14/24 02:03 92 02/14/24 02:00 02/14/24 01:18 93 02/14/24 01:00 02/14/24 00:51 02/14/24 00:06 96 02/14/24 00:00 02/14/24 00:00 02/13/24 23:30 88 L 02/13/24 23:00 Laboratory Results Cardiac Enzymes 02/14/24 Range/Units 03:40 AST 16 (13-39) U/L CBC 02/14/24 Range/Units 03:40 WBC 12.71 H D (4.8-10.8) K/ul RBC 2.01 L (4.20-5.40) M/uL Hgb 7.6 L (12.0-16.0) g/dl Hct 23.7 L (37.0-47.0) % Plt Count 83 L (130-400) K/uL Neut # (Auto) 11.05 H (1.40-6.50) K/uL Lymph # (Auto) 0.65 L (1.20-3.40) K/uL [place] # (Auto) 0.76 H (0.11-0.59) K/uL Eos # (Auto) 0.05 (0.00-0.50) K/uL Baso # (Auto) 0.04 (0.00-0.20) K/uL Comprehensive Metabolic Panel 02/14/24 Range/Units 03:40 Sodium 140 (136-145) mmol/L Potassium 3.6 (3.5-5.1) mmol/L Chloride 103 (98-107) mmol/L Carbon Dioxide 30 (21-32) mmol/L BUN 13 (6-23) mg/dl Creatinine 3.32 H D (0.6-1.2) mg/dl Glucose 73 (70-99(Fasting)) mg/dl Calcium 8.3 L D (8.6-10.3) mg/dl AST 16 (13-39) U/L ALT 14 (7-52) U/L Alkaline Phosphatase 59 (34-104) U/L Total Protein 4.7 L D (6.0-8.3) gm/dl Albumin 2.7 L (3.4-5.0) gm/dl Intake and Output 02/13/24 02/14/24 02/14/24 22:59 06:59 14:59 Intake Total 550 / 1672.833 100 / 1672.833 255 / 255 Output Total 0 / 0 Balance 550 / 1672.833 100 / 1672.833 255 / 255 Intake: IV 150 / 1272.833 100 / 1272.833 255 / 255 Albumin 25% 12.5 gm In 50 ml @ 50 / 50 50 mls/hr IV TODAY@1000 [facility] Rx# :[id number] Potassium Phosphate 15 mmol In 255 / 255 Sodium Chloride 0.9% 250 ml @ 125 mls/hr IV ONE ONE Rx#: [id number] metroNIDAZOLE 500 mg In 100 ml 100 / 300 100 / 300 @ 100 mls/hr IV Q8H [facility] Rx#: [id number] Oral 400 / 400 Output: # Bowel Movements 0 / 0 Other: Hemodialysis Ultrafiltration 0 Amount # Unmeasured Voids 0 0
--- NOTE | 2024-02-14 12:19 | Hospitalist Progress Note ---
Date of Service February 14, 2024 Assessment & Plan (1) Abdominal pain: (2) Diverticulitis of small bowel: (3) Enterocolitis: (4) ESRD (end stage renal disease) on dialysis: Plan This is a 78-year-old female who has a significant past medical history of chronic hypoxic respiratory failure on 3 L of O2, COPD, PAF off anticoagulation secondary to bleeding, mesenteric artery stenosis, HTN, mitral regurgitation, ESRD on HD, HLD, T2DM, secondary hyperparathyroidism, anemia and ESRD, hypogammaglobinemia and history of tobacco abuse who presents to ED secondary to abdominal pain. Recent admission 01/23 - 01/29 for near syncope. Seen and evaluated by cards. [place]aines possibly 2/2 labile HTN with HD, Lisinopril stopped and midodrine 3x weekly continued. She developed abd pain throughout stay and diarrhea. Stool biofire and for cdiff negative. Empirically started on oral vanco and discharged to [facility]. While at [facility] pt has been having worsening abd pain, n/v/d. Vanco increased to 250mg QID. She was borderline hypotensive and wbc climbing so sent to ED for eval. 02/12/2024: Case discussed multiple times during the day with general surgery and nephrology. General surgery requesting CTA of the abdomen pelvis given patient's persistent significant tenderness to palpation on exam. Concern for mesenteric ischemia given patient's complex medical history. Case further discussed with nephrology who advised can proceed with IV contrast for the needed CTA of the abdomen pelvis to rule out mesenteric ischemia. Later notified by nursing that patient was a "code purple" in the CT area. Patient was seen at that time by ER physician Dr. Parth Bliss who noted that she was hypotensive and in A-fib with RVR. Patient then became unresponsive and was then cardioverted at that time into sinus rhythm. she was transferred to the ICU and had a central and arterial line placed, concern for her requiring pressor support. Noted severe metabolic acidosis. She was awake and responsive to her name, eventually stating at one point that she would like to have a bowel movement. Her daughter Delphine was contacted via telephone and advised of the day's events. She later presented to bedside in room 103 in the ICU. ICU physician had extensive discussion with daughter and son-in-law at bedside explaining patient's medical course at this time and her will to live despite her chronic progressing medical conditions. Daughter notes that patient has purposely not signed a POA but did make her wishes known to her daughter that she does not want to be in the long-term and would likely not want to have surgery should the CTA of the abdomen pelvis note mesenteric ischemia. Discussion of patient's full CODE STATUS and daughter agreeing that based on patient's wishes she would want to be a DNR/DNI. Patient's daughter also agreeing to a palliative care consult to discuss goals of care further and what her future care could look like. Pt made DNR/DNI Palliative care consulted Appreciate care and recs of ICU at this time. Cardiology also consulted. 02/13/2024- patient still ICU status. CTA abdomen pelvis noting "high grade stenosis noted at the origin of the superior and inferior mesenteric and renal arteries." Vascular surgery was consulted and recommends stenting. Patient discussing with daughter and son-in-law whether she wants to proceed with surgery. palliative care consult still pending. CT abdomen pelvis also noting improved colitis. Continue with antibiotics. 02/14/2024- patient and family agreeable to having vascular surgery tomorrow where stent will be placed in her SMA. cardiology providing recs for anticoagulation needed postop. Patient stable today and has been downgraded from the ICU. She was previously treated for the following: Abdominal Pain Diverticulitis of the small bowel Possible persistent/recurrent c diff colitis Pt with significant leukocytosis >30 CT noting concern for diverticulitis stool cultures negative Repeat C. difficile testing was initially not able to be obtained before treatment. Eventually obtained on 02/10 after abx treatments and was negative NPO--> transitioned to clears on 02/09/24, full liquids on 02/10/24 and low fiber diet on 02/11/24. per nursing, patient without much intake IV zosyn switched to IV Rocephin and IV Flagyl for treatment of diverticulitis, p.o. vancomycin 500mg every 6 hours also added for treatment of likely C. difficile colitis along with IV Flagyl probiotic daily consult general surg, appreciate recs -continue with full liquids as abd still sig tender to palpation -Continue abx regimen Infectious disease consulted, appreciate recs very cautious IVF D5NSS at 50cc/hr x 24hr continue to monitor PAF Pt flipped from sinus rhythm to atrial fibrillation in the AM of 02/09 Per chart review appears that her amiodarone had not been given on 02/08/2024. However per chart review and discussion with nurses she did receive her dose on 02/08, 02/09 and 02/10 and 02/11 her heart rates are currently controlled continue amiodarone, off oral anticoagulation due to bleeding Continue to monitor on telemetry, rate has been improving Cardiology consulted, appreciate recs ESRD on HD: typically T//Sat however while at [facility] is on MWF HD on 02/07 with nephro, on board Also on 02/09 Sacral Wound Pt with stage II sacral ulcer Continue offloading as tolerated Wound consult Chronic hypoxic resp failure on 3.5L/COPD continue home inhalers Anemia of Chronic Disease hgb stable 11.4 monitor no s/sx of bleeding Chronic HFpEF, mod to severe MR volume status via HD Hx of T2DM last a1c in Mar was 5.9 5.9 on repeat this admission Thrombocytopenia Platelets have been downtrending Holding heparin for DVT prophylaxis AM peripheral smear Diet: on full liquids, advance as tolerated DVT ppx: SQ Heparin on hold in setting of thrombocytopenia Dispo: PT/OT for further recs once medically stable Admission and Anticipated Discharge Date Admission Date: February 07, 2024 Subjective Patient was seen while still down in ICU Per ICU patient can be downgraded. States she only had 1 bowel movement today States she is agreeable to having surgery with the vascular team tomorrow to have stents placed in the stenosed vessels in her abdomen Daughter Delphine was called and updated at about 1pm. Review of Systems Review of Systems: All systems reviewed & are unremarkable except as noted in Subjective Physical Exam Physical Exam: General: Alert Neuro: AAOx3 HEENT: NC/AT CV: irregular Resp: Breath sounds clear bilaterally, no increased effort of breathing Abdomen: Soft, significantly tender to palpation Lower back: stage II sacral ulcer noted in sacral area Results & Data Results & Data Vital Signs (Past 12 Hours) Vital Signs Temp Pulse Pulse Resp BP BP BP 02/14/24 09:11 02/14/24 09:01 101/70 02/14/24 08:06 117 H 15 02/14/24 08:00 104/68 02/14/24 06:09 96 H 18 02/14/24 06:00 95/52 L 02/14/24 05:00 98 H 19 92/69 L 02/14/24 04:13 37.1 C 103 H 18 96/78 L 107/38 L 02/14/24 03:00 125 H 17 02/14/24 02:03 105 H 20 02/14/24 02:00 102/49 L 02/14/24 01:18 90 20 02/14/24 01:00 109/49 L 02/14/24 00:51 36.9 C Pulse Ox O2 Del Method O2 Flow Rate 02/14/24 09:11 Nasal Cannula 2 02/14/24 09:01 02/14/24 08:06 93 02/14/24 08:00 02/14/24 06:09 94 02/14/24 06:00 02/14/24 05:00 92 Nasal Cannula 1 02/14/24 04:13 95 Nasal Cannula 1 02/14/24 03:00 91 02/14/24 02:03 92 02/14/24 02:00 02/14/24 01:18 93 02/14/24 01:00 02/14/24 00:51 Diagnostic Findings Abdomen/Pelvis CT 02/07/24 13:22 CT OF THE ABDOMEN AND PELVIS WITHOUT CONTRAST CLINICAL HISTORY: Diffuse abdominal pain. COMPARISON STUDY: CT of the abdomen and pelvis January 26, 2024. KUB January 27, 2024. TECHNIQUE: Axial images of the abdomen and pelvis were obtained without IV contrast. Images were reviewed in the axial, sagittal, and coronal planes. Automated exposure control was utilized for the study. A dose lowering technique was utilized adhering to the principles of ALARA. FINDINGS: Evaluation of the abdomen and pelvis is suboptimal on this unenhanced exam. No pneumatosis, free air or portal venous gas is present. There is no significant biliary ductal dilatation status post cholecystectomy. Hypodense splenic lesions are unchanged from earlier exams. These are likely benign. Bilateral adrenal nodules are also unchanged and are likely benign. A cystic 2.7 cm lesion within the pancreatic tail is similar to CT of May 12, 2022. There is no peripancreatic infiltration. A partially calcified nodule along the pancreatic head remains unchanged as well. Both kidneys are markedly atrophic. There is no hydronephrosis. There is colonic diverticulosis without evidence for acute colonic diverticulitis. The small and large bowel is fluid-filled. There is no transition point. There is mild wall thickening of the transverse colon. No fluid collections are present. There are clustered small bowel loops within the lower anterior abdomen on image 203 of 377 with wall thickening and mild adjacent inflammation. Associated small bowel diverticula are likely present. There is no extraluminal gas. This finding is new since prior CT. Lytic lesions within the bilateral acetabula are unchanged in appearance since prior exam. No newly lesions are identified. IMPRESSION: 1. Fluid-filled small and large bowel with mild wall thickening of the transverse colon. The findings may reflect a nonspecific enterocolitis. No transition point to suggest a bowel obstruction. 2. Clustered small bowel loops within the lower anterior abdomen with bowel wall thickening, adjacent inflammation and associated diverticula which contain complex contents/stool. The findings raise the possibility of small bowel diverticulitis. No free air or abscess. 3. No change in appearance of multiple lytic bilateral acetabular lesion since earlier CTs dating back to May 12, 2022. These remain indeterminate. ACT 112: Negative or not required by law. Electronically signed by: Vicente Tapia M.D. 02/07/2024 3:19 PM Abdomen/Pelvis CTA 02/12/24 10:48 CT angio abdomen pelvis w con CLINICAL HISTORY: 78 years-old Female with r/o mesenteric ischemia acute mid abdominal pain COMPARISON STUDY: CT 02/07/2024, May 12, 2022. TECHNIQUE: Following the IV administration of 112 cc of Optiray, CT angiogram of the abdomen and pelvis was performed from the lung bases the proximal femora. Images are reviewed in the axial, sagittal, and coronal planes. 3-D MIPS images are created and assessed. All measurements were obtained according to NASCET criteria. IV contrast was administered without complication. A dose lowering technique was utilized adhering to the principles of ALARA. CT DOSE: 732.49 mGy.cm FINDINGS: CTA: Cardiomegaly with trace pericardial effusion. Extensive atherosclerosis of the abdominal aorta and branch vessels. Celiac trunk is patent with moderate multifocal stenoses of the branch vessels. There is a high-grade stenosis noted within the superior and inferior mesenteric arteries secondary to atherosclerosis. Multifocal high-grade stenoses also noted within the renal arteries. The iliac and imaged femoral arteries are patent. There is a high- grade stenosis in the profunda femoris arteries. No abdominal aortic aneurysm or dissection. CT ABDOMEN/PELVIS: Mild subsegmental left basilar atelectasis. No pneumatosis, free air or portal venous gas is present. There is no significant biliary ductal dilatation status post cholecystectomy. Hypodense splenic lesions, likely benign. Bilateral adrenal nodules are also unchanged and are likely benign. A cystic 2.7 cm lesion within the pancreatic tail is similar to CT of May 12, 2022. There is no peripancreatic infiltration. A partially calcified nodule along the pancreatic head remains unchanged as well. Both kidneys are markedly atrophic. There is no hydronephrosis. There is colonic diverticulosis without evidence for acute colonic diverticulitis. The small and large bowel is fluid-filled it appears similar to prior, again with no identifiable transition point. No fluid collections are present. Previously noted cluster small bowel loops within the lower anterior abdomen which showed wall thickening and mild adjacent inflammation no longer appreciated on today's study. No new areas of bowel wall thickening identified. There is decreased wall thickening of the transverse colon. Lytic lesions within the bilateral acetabula are unchanged in appearance since prior exam. No newly lesions are identified. IMPRESSION: 1. Atherosclerosis of the abdominal aorta without aneurysm or dissection. 2. Extensive atherosclerosis with high grade stenosis noted at the origin of the superior and inferior mesenteric and renal arteries. 3. Findings suggestive of a nonspecific enterocolitis/diarrheal illness with areas of improved wall thickening. No obstruction identified. 4. No pneumatosis or pneumoperitoneum. 5. Atrophic kidneys. 6. Unchanged lytic acetabular lesions. 7. Additional findings as above. ACT 112: Negative or not required by law. The above report was generated using voice recognition software. It may contain grammatical, syntax or spelling errors. Electronically signed by: Elder Osborn M.D. 02/12/2024 2:21 PM Chest X-Ray 02/12/24 10:48 XR chest 1V portable HISTORY: 78 years-old Female new cough acute cough COMPARISON: 01/30/2024 TECHNIQUE: AP view of the chest FINDINGS: Cardiac silhouette is mildly enlarged. Atherosclerosis of the aorta. No pneumothorax, pleural effusion or overt pulmonary edema. Minimal left basilar atelectasis. Bones appear grossly intact. IMPRESSION: No acute process. ACT 112: Negative or not required by law. The above report was generated using voice recognition software. It may contain grammatical, syntax or spelling errors. Electronically signed by: Elder Osborn M.D. 02/12/2024 11:31 AM Chest X-Ray 02/12/24 13:37 XR chest 1V portable HISTORY: 78 years-old Female Central Line Placement COMPARISON: 02/12/2024 TECHNIQUE: AP view the chest FINDINGS: Cardiomediastinal and hilar silhouettes are unchanged. Right IJ central venous catheter distal tip noted in the expected location of the upper SVC. No pneumothorax, pleural effusion or airspace consolidation. The bones appear intact. IMPRESSION: Status post placement of a right IJ central venous catheter. No postprocedural pneumothorax. ACT 112: Negative or not required by law. The above report was generated using voice recognition software. It may contain grammatical, syntax or spelling errors. Electronically signed by: Elder Osborn M.D. 02/12/2024 2:02 PM
[2024-02-14 12:24] LABS: Hematocrit (blood only) 24.1 % (37.0-47.0); Hemoglobin 7.7 g/dl (12.0-16.0)
[2024-02-14] MEDS ORDERED: SODIUM CHLORIDE 0.9% 50 ML IV PRN (14:08)
[2024-02-14] MEDS ORDERED: SODIUM CHLORIDE 0.9% 100 ML IV PRN (14:08)
[2024-02-14 21:08] LABS: Hemoglobin 8.7 g/dl (12.0-16.0)
[2024-02-15 06:59] LABS: Albumin Globulin Ratio 1.2 (0.9-2); Albumin Level 2.7 gm/dl (3.4-5.0); BUN Creatinine Ratio 4.3 (10-20); Bilirubin,Total 0.4 mg/dl (0.2-1.0); Calcium 8.2 mg/dl (8.6-10.3); Creatinine Clr Calc Pharmacy 10.2 ml/min; Globulin 2.2 gm/dl (2.5-4.0); Phosphorus 3.6 mg/dl (2.5-4.9); Potassium 4.1 mmol/L (3.5-5.1); Total Protein 4.9 gm/dl (6.0-8.3)
[2024-02-15] MEDS ORDERED: GLUCOSE 10 TAB/TUBE PO PRN (07:01)
[2024-02-15] MEDS ORDERED: GLUCOSE 40% GEL 15 GM TUBE PO PRN (07:01)
[2024-02-15] MEDS ORDERED: DEXTROSE 50% 50 ML SYRINGE IV PRN (07:01)
[2024-02-15] MEDS ORDERED: CARBOHYDRATES FOR HYPOGLYCEMIA PO PRN (07:01)
[2024-02-15] MEDS ORDERED: GLUCAGON FOR INJ 1 MG VIAL SQ PRN (07:01)
[2024-02-15 07:06] LABS: Hematocrit (blood only) 25.4 % (37.0-47.0); Hemoglobin 8.1 g/dl (12.0-16.0); Mean Corpuscular Hgb Conc 31.9 g/dL (32.0-36.0); Mean Corpuscular Volume 112.9 fL (80.0-100.0); Mean Platelet Volume 11.8 fL (9.4-12.4); Platelet Count 69 K/uL (130-400); RDW Coefficient of Variation 19.8 % (11.5-14.5); Red Blood Count 2.25 M/uL (4.20-5.40); White Blood Count 7.43 K/ul (4.8-10.8)
[2024-02-15 07:08] LABS: Basophils # (auto) 0.02 K/uL (0.00-0.20); Basophils % (auto) 0.3 %; Eosinophils # (auto) 0.03 K/uL (0.00-0.50); Eosinophils % (auto) 0.4 %; Immature Granulocytes # (auto) 0.07 K/uL (0.01-0.20); Immature Granulocytes % (auto) 0.9 %; Lymphocytes # (auto) 0.61 K/uL (1.20-3.40); Lymphocytes % (auto) 8.2 %; Macrocytosis Present; Monocytes % (auto) 6.7 %; Neutrophils % (auto) 83.5 %
--- NOTE | 2024-02-15 08:36 | Cardiology Progress Note ---
Date of Service February 15, 2024 Assessment & Plan (1) Paroxysmal atrial fibrillation: (2) ESRD (end stage renal disease) on dialysis: (3) Chronic respiratory failure with hypoxia: (4) Mesenteric ischemia: Plan 78-year-old female readmitted on 02/06 with poor p.o. intake, nausea, vomiting, diarrhea, and abdominal pain. Unresponsiveness episode following CT on 02/11, undergoing cardioversion of atrial fibrillation (present since February 10, 2024) back to sinus rhythm. 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 Ventricular rates between 90 and 115 bpm at present. I think is reasonable to continue amiodarone 200 mg p.o. daily for now for rate control in the setting of hypotension in a dialysis patient.Electrolytes improved today. It is noted this patient has chronic anemia. Previously anticoagulation for atrial fibrillation was discontinued due to GI bleeding. I reviewed her chart, and EGD was performed in 2018 documented healed gastric and duodenal ulcers. Will need to keep her bleeding history in mind with regards to candidacy for single antiplatelet therapy or dual antiplatelet therapy with proposed SMA stenting. Update provided to vascular team by phone call. 02/14/24: Back in SR. Continue amiodarone chronic dose of 200 mg daily. Plan for HD today, vascular angiogram for evaluation of SMA stenosis this afternoon. Would need to approach any revascularization plan with caution given pre- existent anemia and past GI bleeding with regards to committing her to antiplatelet therapy. Per review of her inpatient chart, EGD was performed in 2018 documented healed gastric and duodenal ulcers. Admission and Anticipated Discharge Date Admission Date: February 07, 2024 Subjective Patient seen in cardiology follow up. No acute complaints. She was in atrial fibrillation in the am of 02/14/24, however per review of telemetry she converted back to SR at 12:38 pm on 02/14/24 and remains in SR in the 60s this am. Review of Systems Review of Systems: All systems reviewed & are unremarkable except as noted in HPI & below Physical Exam Physical Exam: General: Alert to person and place. No acute distress. Lethargic. Neck: No JVD -R IJ central line Heart: RRR. Systolic murmur. No rub. Lungs: Clear to auscultation anteriorly. Abdomen: +BS. Nontender. No organomegaly. Extremities: No clubbing, cyanosis, or edema. Limited neurological examination is without focal deficits. Results & Data Vital Signs (Past 12 Hours) Vital Signs Temp Pulse Resp BP BP Pulse Ox O2 Del Method 02/15/24 07:55 36.7 C 58 L 22 111/61 91 Room Air 02/15/24 02:36 36.8 C 56 L 18 105/60 94 Nasal Cannula 02/15/24 02:00 Nasal Cannula 02/14/24 22:58 36.7 C 60 18 116/64 96 Nasal Cannula O2 Flow Rate 02/15/24 07:55 02/15/24 02:36 02/15/24 02:00 2 02/14/24 22:58 Laboratory Results Cardiac Enzymes 02/15/24 Range/Units 06:11 AST 12 L (13-39) U/L CBC 02/14/24 02/14/24 02/14/24 Range/Units 11:59 19:51 20:40 WBC (4.8-10.8) K/ul RBC (4.20-5.40) M/uL Hgb 7.7 L Cancelled 8.7 L (12.0-16.0) g/dl Hct 24.1 L Cancelled 27.0 L (37.0-47.0) % Plt Count (130-400) K/uL Neut # (Auto) (1.40-6.50) K/uL Lymph # (Auto) (1.20-3.40) K/uL [place] # (Auto) (0.11-0.59) K/uL Eos # (Auto) (0.00-0.50) K/uL Baso # (Auto) (0.00-0.20) K/uL 02/15/24 Range/Units 06:11 WBC 7.43 (4.8-10.8) K/ul RBC 2.25 L (4.20-5.40) M/uL Hgb 8.1 L (12.0-16.0) g/dl Hct 25.4 L (37.0-47.0) % Plt Count 69 L (130-400) K/uL Neut # (Auto) 6.20 (1.40-6.50) K/uL Lymph # (Auto) 0.61 L (1.20-3.40) K/uL [place] # (Auto) 0.50 (0.11-0.59) K/uL Eos # (Auto) 0.03 (0.00-0.50) K/uL Baso # (Auto) 0.02 (0.00-0.20) K/uL Comprehensive Metabolic Panel 02/15/24 Range/Units 06:11 Sodium 144 (136-145) mmol/L Potassium 4.1 (3.5-5.1) mmol/L Chloride 109 H (98-107) mmol/L Carbon Dioxide 28 (21-32) mmol/L BUN 21 (6-23) mg/dl Creatinine 4.84 H* D (0.6-1.2) mg/dl Glucose 68 L (70-99(Fasting)) mg/dl Calcium 8.2 L (8.6-10.3) mg/dl AST 12 L (13-39) U/L ALT 11 (7-52) U/L Alkaline Phosphatase 56 (34-104) U/L Total Protein 4.9 L (6.0-8.3) gm/dl Albumin 2.7 L (3.4-5.0) gm/dl Intake and Output 02/14/24 02/15/24 02/15/24 22:59 06:59 14:59 Intake Total 660 / 1365 100 / 1365 Output Total Balance 659 / 1362 100 / 1362 Intake: IV 100 / 605 100 / 605 metroNIDAZOLE 500 mg In 100 ml 100 / 300 100 / 300 @ 100 mls/hr IV Q8H [facility] Rx#: [id number] Oral 250 / 450 Intake (Blood Product) Amt 310 / 310 Packed Cells, Leukoreduced 310 / 310 Unit [id number] Output: # Bowel Movements 1 / 3 Other: Other Intake Source npo Weight 73.7 kg
[2024-02-15] MEDS ORDERED: VASOPRESSIN 20 UNIT/ML VIAL IM ONE (09:51)
[2024-02-15] MEDS ORDERED: SODIUM CHLORIDE 0.9% 10ML FLUSH IV ONE (09:51)
--- NOTE | 2024-02-15 10:39 | Dialysis Progress Note ---
Date of Service February 15, 2024 Assessment & Plan (1) ESRD on hemodialysis: Plan: Long standing ESRD patient with Anuria. has a good Left UE AVF for access; no issues continues to be vol depleted from Acute GI issues/chronic diarrhea and poor Appetite. leukocytosis labile but overall improving from 31 11/ > 10 > 26 >13 today. hgb 9.7 > 10.2 > 9.2 > 7.6 > 8.1 -- had 4K units epo 02/09 and 02/12; had 20K units today 02/09 had no UF and had gentle IVF d5nss at 60/hr. No UF w/ 02/12 tx either; for today will try for one liter to optimize for OR on full liquid diet >> fluid restriction not indicated; dialysis diet not indicated at this time as K 4.1 / controlled continue to hold renvela and encourage po when no longer NPO >>next HD 02/16 for Tuesday > for today will try albumin w/ tx midway prn; instensify epo to 20 K; cont 3K bath continue low dose midodrine w/ HD; else would not intervene specifically for hypotension (2) Mesenteric ischemia: Plan: vascular suggests mesenteric angio w/ SMA stent > for OR today; high risk surgery even endovascular but no other prospects for relief/symptom mgt; cardiology concerns re potential bleeding w/ single v dual anti plt therapy noted given past bleeding w/ AC for a fib not a candidate for large open high risk surgery (3) Diverticulitis of small bowel: Plan: Reason for Admission. has Sig symptoms and very very high WBC at 31K peak on 02/07; WBC climbing again and w/ ongoing abd pain, minimal po, and ongoing disruptive diarrhea. On flagyl and Ceftraizxone. All abx Can be continued. (4) Atrial fibrillation with rapid ventricular response: Plan: s/p cardioversion; rate controlled now >>maintain mag of 2 and K of 4 >> no mag needed today; critical care already gave K phos Admission and Anticipated Discharge Date Admission Date: February 07, 2024 Subjective seen on HD. feels exhausted; ongoing tailbone pain. no sob. abd pain unchanged. gearing up for OR this PM Review of Systems 2 Review of Systems: All systems reviewed & are unremarkable except as noted in Subjective Physical Exam 2 Constitutional: well developed, + thin, + frail appearing and cooperative; no acute distress ENMT: Mouth: + dry oral mucous membranes Respiratory: normal respiratory effort Auscultation: + diminished lung sounds Cardiovascular: Rate/Rhythm: regular rate and regular rhythm Extremities: + AV fistula; no edema Musculoskeletal: Extremities: strength 5/5 throughout Skin: no rashes, warm and dry Results & Data Vital Signs (Past 12 Hours) Vital Signs Temp Pulse Pulse Pulse Resp BP BP 02/15/24 10:00 56 L 122/59 L 02/15/24 09:30 55 L 116/53 L 02/15/24 09:00 57 L 118/54 L 02/15/24 08:47 36.5 C 57 L 02/15/24 07:55 36.7 C 58 L 22 111/61 02/15/24 02:36 36.8 C 56 L 18 02/15/24 02:00 02/14/24 22:58 36.7 C 60 18 BP Pulse Ox O2 Del Method O2 Flow Rate 02/15/24 10:00 02/15/24 09:30 02/15/24 09:00 02/15/24 08:47 02/15/24 07:55 91 Room Air 02/15/24 02:36 105/60 94 Nasal Cannula 02/15/24 02:00 Nasal Cannula 2 02/14/24 22:58 116/64 96 Nasal Cannula Laboratory Results 02/15/24 06:11 02/15/24 06:11
--- NOTE | 2024-02-15 11:24 | Hospitalist Progress Note ---
Date of Service February 15, 2024 Assessment & Plan (1) Abdominal pain: (2) Diverticulitis of small bowel: (3) Enterocolitis: (4) ESRD (end stage renal disease) on dialysis: Plan Per previous hospitalist with addendum: This is a 78-year-old female who has a significant past medical history of chronic hypoxic respiratory failure on 3 L of O2, COPD, PAF off anticoagulation secondary to bleeding, mesenteric artery stenosis, HTN, mitral regurgitation, ESRD on HD, HLD, T2DM, secondary hyperparathyroidism, anemia and ESRD, hypogammaglobinemia and history of tobacco abuse who presents to ED secondary to abdominal pain. Recent admission 01/23 - 01/29 for near syncope. Seen and evaluated by cardiology. [place] possibly 2/2 labile HTN with HD, Lisinopril stopped and midodrine 3x weekly continued. She developed abd pain throughout stay and diarrhea. Stool biofire and for cdiff negative. Empirically started on oral vanco and discharged to [facility]. While at [facility] pt has been having worsening abd pain, n/v/d. Vanco increased to 250mg QID. She was borderline hypotensive and wbc climbing so sent to ED for eval. 02/12/2024: Case discussed multiple times during the day with general surgery and nephrology. General surgery requesting CTA of the abdomen pelvis given patient's persistent significant tenderness to palpation on exam. Concern for mesenteric ischemia given patient's complex medical history. Case further discussed with nephrology who advised can proceed with IV contrast for the needed CTA of the abdomen pelvis to rule out mesenteric ischemia. Later notified by nursing that patient was a "code purple" in the CT area. Patient was seen at that time by ER physician Dr. Parth Bliss who noted that she was hypotensive and in A-fib with RVR. Patient then became unresponsive and was then cardioverted at that time into sinus rhythm. she was transferred to the ICU and had a central and arterial line placed, concern for her requiring pressor support. Noted severe metabolic acidosis. She was awake and responsive to her name, eventually stating at one point that she would like to have a bowel movement. Her daughter Delphine was contacted via telephone and advised of the day's events. She later presented to bedside in room 103 in the ICU. ICU physician had extensive discussion with daughter and son-in-law at bedside explaining patient's medical course at this time and her will to live despite her chronic progressing medical conditions. Daughter notes that patient has purposely not signed a POA but did make her wishes known to her daughter that she does not want to be in the [facility] and would likely not want to have surgery should the CTA of the abdomen pelvis note mesenteric ischemia. Discussion of patient's full CODE STATUS and daughter agreeing that based on patient's wishes she would want to be a DNR/DNI. Patient's daughter also agreeing to a palliative care consult to discuss goals of care further and what her future care could look like. Pt made DNR/DNI Palliative care consulted Appreciate care and recs of ICU at this time. Cardiology also consulted. 02/13/2024- patient still ICU status. CTA abdomen pelvis noting "high grade stenosis noted at the origin of the superior and inferior mesenteric and renal arteries." Vascular surgery was consulted and recommends stenting. Patient discussing with daughter and son-in-law whether she wants to proceed with surgery. palliative care consult still pending. CT abdomen pelvis also noting improved colitis. Continue with antibiotics. 02/14/2024- patient and family agreeable to having vascular surgery tomorrow where stent will be placed in her SMA. cardiology providing recs for anticoagulation needed postop. Patient stable today and has been downgraded from the ICU. 02/14 - pt seen on HD, discussed w/ Dr. Reed at the HD bed She was previously treated for the following: Abdominal Pain Diverticulitis of the small bowel Possible persistent/recurrent c diff colitis Pt with significant leukocytosis >30 CT noting concern for diverticulitis stool cultures negative Repeat C. difficile testing was initially not able to be obtained before treatment. Eventually obtained on 02/10 after abx treatments and was negative NPO--> transitioned to clears on 02/09/24, full liquids on 02/10/24 and low fiber diet on 02/11/24. per nursing, patient without much intake IV zosyn switched to IV Rocephin and IV Flagyl for treatment of diverticulitis, p.o. vancomycin 500mg every 6 hours also added for treatment of likely C. difficile colitis along with IV Flagyl probiotic daily consult general surg, appreciate recs -continue with full liquids as abd still sig tender to palpation -Continue abx regimen Infectious disease consulted, appreciate recs very cautious IVF D5NSS at 50cc/hr x 24hr continue to monitor PAF Pt flipped from sinus rhythm to atrial fibrillation in the AM of 02/09 Per chart review appears that her amiodarone had not been given on 02/08/2024. However per chart review and discussion with nurses she did receive her dose on 02/08, 02/09 and 02/10 and 02/11 her heart rates are currently controlled continue amiodarone, off oral anticoagulation due to bleeding Continue to monitor on telemetry, rate has been improving Cardiology consulted and following, appreciate their input ESRD on HD: typically T//Sat however while at [facility] is on MWF HD on 02/07 with nephro, on board Also on 02/09 02/14 currently on HD Sacral Wound Pt with stage II sacral ulcer Continue offloading as tolerated Wound consult Chronic hypoxic resp failure on 3.5L/COPD continue home inhalers Anemia of Chronic Disease hgb stable 11.4 monitor no s/sx of bleeding Chronic HFpEF, mod to severe MR volume status via HD Hx of T2DM last a1c in Mar was 5.9 5.9 on repeat this admission Thrombocytopenia Platelets have been downtrending Holding heparin for DVT prophylaxis Peripheral smear - The peripheral blood smear shows macrocytic appearing erythrocytes without significant anisopoikilocytosis. Polychromatophilic cells (a subset of reticulocytes) are noted but not markedly increased. I do not see significant numbers of schistocytes or spherocytes indicative of a hemolytic process. Leukocytes appear normal in number, relative distribution and morphology. Platelets are decreased in number and are unremarkable in appearance. I do not see any significant number of platelet clumps resulting in an artifactual thrombocytopenia.The associated CBC shows a HGB of 8.1 with high MCV and low platelets (69,000).The major findings are macrocytic anemia and thrombocytopenia. The macrocytic anemia appears to be long standing based on review of older CBC's.Besides megaloblastic anemias and MDS, macrocytosis may also be seen in association with certain medications (i.e. primarily chemotherapy drugs), alcohol usage, non-alcoholic liver disease and hypothyroidism (more commonly in elderly). Increased reticulocytes can also elevate the MCV due to their large size.Total bilirubin, B12 and folate are unremarkable. A recent TSH was normal. If clinically indicated then a reticulocyte count is suggested.No overt morphologic abnormalities, including changes of a myelodysplastic syndrome or hemolytic anemia, are seen though neither is excluded, in particular MDS given the long standing macrocytic anemia.Darinel Grossman M.D. Diet: on full liquids, advance as tolerated (currently NPO) DVT ppx: SQ Heparin on hold in setting of thrombocytopenia Dispo: PT/OT for further recs once medically stable Admission and Anticipated Discharge Date Admission Date: February 07, 2024 Subjective Patient was seen while on HD - discussed w/ Dr. Reed at the bedside No BM today but reports having several BMs yesterday Plan for surgery with the vascular team today to have stents placed into SMA Daughter Delphine updated by previous hospitalist Currently pt is laying in bed in NAD, abd. pain not severe however pt has not been eating No fever, chills, chest pain, or shortness of breath Review of Systems Review of Systems: All systems reviewed & are unremarkable except as noted in Subjective Physical Exam Physical Exam: General: elderly slim F in NAD, on suppl. O2, on HD Neuro: AAOx3, moves extremities HEENT: NC/AT CV: rrr Resp: Breath sounds clear bilaterally, no increased effort of breathing Abdomen: Soft, +some tenderness to palpation Lower back: stage II sacral ulcer in sacral area Extremities: no LE edema, moves extremities Results & Data Results & Data Vital Signs (Past 12 Hours) Vital Signs Temp Pulse Pulse Pulse Resp BP BP 02/15/24 10:30 61 130/49 L 02/15/24 10:00 56 L 122/59 L 02/15/24 09:30 55 L 116/53 L 02/15/24 09:00 57 L 118/54 L 02/15/24 08:47 36.5 C 57 L 02/15/24 08:00 02/15/24 07:55 36.7 C 58 L 22 111/61 02/15/24 02:36 36.8 C 56 L 18 02/15/24 02:00 BP Pulse Ox O2 Del Method O2 Flow Rate 02/15/24 10:30 02/15/24 10:00 02/15/24 09:30 02/15/24 09:00 02/15/24 08:47 02/15/24 08:00 Nasal Cannula 2 02/15/24 07:55 91 Room Air 02/15/24 02:36 105/60 94 Nasal Cannula 02/15/24 02:00 Nasal Cannula 2 Laboratory Results 02/15/24 02/15/24 02/15/24 Range/Units 06:16 06:14 06:11 WBC 7.43 (4.8-10.8) K/ul RBC 2.25 L (4.20-5.40) M/uL Hgb 8.1 L (12.0-16.0) g/dl Hct 25.4 L (37.0-47.0) % MCV 112.9 H (80.0-100.0) fL MCH 36.0 H (25.0-34.0) pg MCHC 31.9 L (32.0-36.0) g/dL RDW Std Deviation 82.0 H (36.4-46.3) fL RDW Coeff of Fior 19.8 H (11.5-14.5) % Plt Count 69 L (130-400) K/uL MPV 11.8 (9.4-12.4) fL Immature Gran % (Auto) 0.9 % Neut % (Auto) 83.5 % Lymph % (Auto) 8.2 % Lamar % (Auto) 6.7 % Eos % (Auto) 0.4 % Baso % (Auto) 0.3 % Neut # (Auto) 6.20 (1.40-6.50) K/uL Lymph # (Auto) 0.61 L (1.20-3.40) K/uL Lamar # (Auto) 0.50 (0.11-0.59) K/uL Eos # (Auto) 0.03 (0.00-0.50) K/uL Baso # (Auto) 0.02 (0.00-0.20) K/uL Immature Gran # (Auto) 0.07 (0.01-0.20) K/uL Macrocytosis Present Peripher Smr Path Cons Sodium 144 (136-145) mmol/L Potassium 4.1 (3.5-5.1) mmol/L Chloride 109 H (98-107) mmol/L Carbon Dioxide 28 (21-32) mmol/L Anion Gap 7 (3-11) BUN 21 (6-23) mg/dl Creatinine 4.84 H* D (0.6-1.2) mg/dl Est Cr Clr Drug Dosing 10.2 ml/min eGFR 8.80 BUN/Creatinine Ratio 4.3 L (10-20) Glucose 68 L (70-99(Fasting)) mg/dl POC Glucose 74 69 L* (70-99) mg/dl Calcium 8.2 L (8.6-10.3) mg/dl Phosphorus 3.6 D (2.5-4.9) mg/dl Magnesium 2.0 (1.7-2.4) mg/dl Total Bilirubin 0.4 (0.2-1.0) mg/dl AST 12 L (13-39) U/L ALT 11 (7-52) U/L Alkaline Phosphatase 56 (34-104) U/L Total Protein 4.9 L (6.0-8.3) gm/dl Albumin 2.7 L (3.4-5.0) gm/dl Globulin 2.2 L (2.5-4.0) gm/dl Albumin/Globulin Ratio 1.2 (0.9-2) Blood Type Antibody Screen Crossmatch 02/14/24 02/14/24 02/14/24 Range/Units 20:40 19:51 11:59 WBC (4.8-10.8) K/ul RBC (4.20-5.40) M/uL Hgb 8.7 L Cancelled 7.7 L (12.0-16.0) g/dl Hct 27.0 L Cancelled 24.1 L (37.0-47.0) % MCV (80.0-100.0) fL MCH (25.0-34.0) pg MCHC (32.0-36.0) g/dL RDW Std Deviation (36.4-46.3) fL RDW Coeff of Fior (11.5-14.5) % Plt Count (130-400) K/uL MPV (9.4-12.4) fL Immature Gran % (Auto) % Neut % (Auto) % Lymph % (Auto) % Lamar % (Auto) % Eos % (Auto) % Baso % (Auto) % Neut # (Auto) (1.40-6.50) K/uL Lymph # (Auto) (1.20-3.40) K/uL Lamar # (Auto) (0.11-0.59) K/uL Eos # (Auto) (0.00-0.50) K/uL Baso # (Auto) (0.00-0.20) K/uL Immature Gran # (Auto) (0.01-0.20) K/uL Macrocytosis Peripher Smr Path Cons Sodium (136-145) mmol/L Potassium (3.5-5.1) mmol/L Chloride (98-107) mmol/L Carbon Dioxide (21-32) mmol/L Anion Gap (3-11) BUN (6-23) mg/dl Creatinine (0.6-1.2) mg/dl Est Cr Clr Drug Dosing ml/min eGFR BUN/Creatinine Ratio (10-20) Glucose (70-99(Fasting)) mg/dl POC Glucose (70-99) mg/dl Calcium (8.6-10.3) mg/dl Phosphorus (2.5-4.9) mg/dl Magnesium (1.7-2.4) mg/dl Total Bilirubin (0.2-1.0) mg/dl AST (13-39) U/L ALT (7-52) U/L Alkaline Phosphatase (34-104) U/L Total Protein (6.0-8.3) gm/dl Albumin (3.4-5.0) gm/dl Globulin (2.5-4.0) gm/dl Albumin/Globulin Ratio (0.9-2) Blood Type Antibody Screen Crossmatch 02/12/24 Range/Units 14:31 WBC (4.8-10.8) K/ul RBC (4.20-5.40) M/uL Hgb (12.0-16.0) g/dl Hct (37.0-47.0) % MCV (80.0-100.0) fL MCH (25.0-34.0) pg MCHC (32.0-36.0) g/dL RDW Std Deviation (36.4-46.3) fL RDW Coeff of Fior (11.5-14.5) % Plt Count (130-400) K/uL MPV (9.4-12.4) fL Immature Gran % (Auto) % Neut % (Auto) % Lymph % (Auto) % Lam[place] % (Auto) % Eos % (Auto) % Baso % (Auto) % Neut # (Auto) (1.40-6.50) K/uL Lymph # (Auto) (1.20-3.40) K/uL Lamar # (Auto) (0.11-0.59) K/uL Eos # (Auto) (0.00-0.50) K/uL Baso # (Auto) (0.00-0.20) K/uL Immature Gran # (Auto) (0.01-0.20) K/uL Macrocytosis Peripher Smr Path Cons Sodium (136-145) mmol/L Potassium (3.5-5.1) mmol/L Chloride (98-107) mmol/L Carbon Dioxide (21-32) mmol/L Anion Gap (3-11) BUN (6-23) mg/dl Creatinine (0.6-1.2) mg/dl Est Cr Clr Drug Dosing ml/min eGFR BUN/Creatinine Ratio (10-20) Glucose (70-99(Fasting)) mg/dl POC Glucose (70-99) mg/dl Calcium (8.6-10.3) mg/dl Phosphorus (2.5-4.9) mg/dl Magnesium (1.7-2.4) mg/dl Total Bilirubin (0.2-1.0) mg/dl AST (13-39) U/L ALT (7-52) U/L Alkaline Phosphatase (34-104) U/L Total Protein (6.0-8.3) gm/dl Albumin (3.4-5.0) gm/dl Globulin (2.5-4.0) gm/dl Albumin/Globulin Ratio (0.9-2) Blood Type A Positive Antibody Screen NEGATIVE Crossmatch See Detail Medications Administered Current Inpatient Medications Acetaminophen (Acetaminophen 325 Mg Tab) 650 mg PO Q4H PRN PRN Reason: Mild Pain or Fever Stop: 03/08/24 16:11 Albuterol (Albut/Ipratrop 3mg/0.5mg Neb 3 Ml Vial) 3 ml INH QID PRN; Protocol PRN Reason: Shortness Of Breath Stop: 03/08/24 19:44 Amiodarone HCl (Amiodarone 200 Mg Tab) 200 mg PO DAILY MARY Stop: 03/09/24 08:59 Last Admin: 02/14/24 07:55 Dose: 200 mg Dextrose (Dextrose 50% 50 Ml Syringe) 25 - 50 ml IV UD PRN; Protocol PRN Reason: Hypoglycemia Protocol Stop: 03/16/24 07:00 Fluticasone Propionate (Fluticasone Propionate Na Spr 16 Gm Btl) 2 sprays NA HS [facility] Stop: 03/08/24 20:59 Last Admin: 02/14/24 19:54 Dose: 2 sprays Fluticasone/Vilanterol (Fluticasone/Vilanterol 200/25mcg 14 Puffs/Inhaler) 1 puffs INH DAILY [facility] Stop: 03/09/24 08:59 Last Admin: 02/15/24 08:06 Dose: 1 puffs Glucagon (Glucagon For Inj 1 Mg Vial) 1 mg SQ UD PRN; Protocol PRN Reason: Hypoglycemia Protocol Stop: 03/16/24 07:00 Glucose (Glucose 40% Gel 15 Gm Tube) 15 - 30 gm PO UD PRN; Protocol PRN Reason: Hypoglycemia Protocol Stop: 03/16/24 07:00 Glucose (Glucose 10 Tab/Tube) 4 - 8 tab PO UD PRN; Protocol PRN Reason: Hypoglycemia Protocol Stop: 03/16/24 07:00 Heparin Sodium (Porcine) (Heparin Sod 5,000 Unit/0.5 Ml Vial) 5,000 units SQ Q8 MARY Stop: 03/08/24 21:59 Last Admin: 02/12/24 05:57 Dose: 5,000 units Hydromorphone HCl (Hydromorphone Inj 0.5 Mg/0.5 Ml Syr) 0.25 mg IV Q6H PRN PRN Reason: Severe Pain (Scale 7, 8, 9,10) Stop: 02/22/24 10:02 Promethazine HCl (Phenergan) 6.25 mg in 50.25 mls @ 201 mls/hr IV Q6H PRN PRN Reason: Nausea And Vomiting Stop: 03/08/24 19:44 Metronidazole (Flagyl) 500 mg in 100 mls @ 100 mls/hr IV Q8H [facility]; Protocol Stop: 02/18/24 09:29 Last Infusion: 02/15/24 04:39 Dose: Infused Ceftriaxone Sodium (Rocephin) 2,000 mg in 50 mls @ 100 mls/hr IV Q24H [facility] Stop: 02/18/24 10:14 Last Infusion: 02/14/24 11:45 Dose: Infused Albumin Human (Albumin 25%) 12.5 gm in 50 mls @ 50 mls/hr IV PRN ONE Stop: 02/15/24 11:39 Lactobacillus Acidophilus (Advanced Probiotic 625 Mg Capsule) 1,250 mg PO DAILY [facility] Stop: 03/09/24 08:59 Last Admin: 02/14/24 07:55 Dose: 1,250 mg Lidocaine (Lidocaine 4% Cream 15 Gm Tube) 1 appln EXT PRN PRN PRN Reason: Pain Stop: 03/14/24 15:33 Melatonin (Melatonin 3 Mg Tab) 6 mg PO HS PRN PRN Reason: Sleep Stop: 03/08/24 20:59 Last Admin: 02/08/24 22:11 Dose: 6 mg Midodrine (Midodrine Hcl 2.5 Mg Tab) 2.5 mg PO TID@0800,1200,1700 [facility] Stop: 03/15/24 07:59 Last Admin: 02/15/24 08:05 Dose: 2.5 mg Miscellaneous (Lanthanum*Order Awaiting Action) 1 each N/A QS [facility] Stop: 03/09/24 20:14 Last Admin: 02/15/24 08:06 Dose: Not Given Miscellaneous (Carbohydrates For Hypoglycemia ) 15 - 30 gm PO UD PRN PRN Reason: Hypoglycemia Protocol Stop: 03/16/24 07:00 Pantoprazole Sodium (Pantoprazole 40 Mg Tab) 40 mg PO QAM [facility] Stop: 03/15/24 08:59 Last Admin: 02/14/24 07:55 Dose: 40 mg Tramadol HCl (Tramadol Hcl 50 Mg Tablet) 25 mg PO Q4H PRN PRN Reason: Moderate Pain (Scale 4, 5, 6) Stop: 03/09/24 10:02 Last Admin: 02/12/24 08:00 Dose: 25 mg Valacyclovir HCl (Valacyclovir Hcl 500 Mg Tablet) 500 mg PO Q24H [facility] Stop: 03/09/24 15:59 Last Admin: 02/14/24 17:31 Dose: Not Given Vitamin B Complex/Folic Acid (Nephrocaps) 1 cap PO QAM [facility] Stop: 03/09/24 08:59 Last Admin: 02/15/24 08:06 Dose: Not Given
[2024-02-15] MEDS: EPOETIN ALFA 20,000 UNITS/ML VIAL IV ONE (11:29)
[2024-02-15] MEDS: ALBUMIN 25% 12.5 GM/50 ML VIAL IV ONE (12:38)
--- NOTE | 2024-02-15 13:38 | Communication Note ---
Date of Service: February 15, 2024 Patient had one unit of blood yesterday and hgb increased to 8.7 but then down to 8.1. If SMA is stented she will need plavix post stenting. If her drop in hgb is secondary to blood loss then will not be able to place on plavix. It may be a better decision to hold off on stenting unless she develops abdominal pain again. We can treat her stenosis at the origin of the SMA but she has more areas more distally in the SMA which can be best done surgically with a bypass. Due to her more distal lesions and continuing drop in hgb, treatment of her SMA if she develops abdominal pain again may best be done at a tertiary care center. Please page me if you have any questions.
--- NOTE | 2024-02-15 14:22 | Palliative Care Progress Note ---
Date of Service February 15, 2024 Assessment & Plan (1) Mesenteric ischemia: Plan: vascular suggests mesenteric angio w/ SMA stent plan for OR today; high risk surgery even endovascular but no other prospects for relief/symptom mgt; cardiology concerns re potential bleeding w/ single v dual anti plt therapy noted given past bleeding w/ AC for a fib (2) Diverticulitis of small bowel: Plan: ongoing abd pain/diarrhea despite minimal po, on flagyl and Ceftraizxone. medical mgmt per primary (3) Abdominal pain: Plan: likely 2/2 #1-2 (4) ESRD on hemodialysis: Plan: Long standing ESRD patient with Anuria and HD dependent 3x/week; >>next HD 02/16 for Tuesday >management per nephrogist Present on Admission?: Yes (5) Atrial fibrillation with rapid ventricular response: Plan: s/p cardioversion; rate controlled now >>maintain mag of 2 and K of 4 >> no mag needed today; critical care already gave K phos Plan Medical management per primary team, plan for mesenteric angio w/ SMA stent today at 1300 GOC discussion summary: Met with pt and her daughter at bedside today. Pt shared that she is hopeful that stent will help to relieve her pain. She shared that her pain is worst with PO intake and well controlled now. Discussed the pt's PMHx, multiple comorbidities contributing to progressive decline in function and HPI/current hospital course. Both pt and her daughter expressed understanding. Given pt's advanced age and multiple chronic medical problems, we discussed code status and importance of POLST as well as LW/AD. Discussed importance of naming a surrogate for medical decisions in event pt lacks decisional capacity. Discussed the importance of MDM proxy being a person who will be knowledgeable of pt's health and wishes/GOC, available for GOC discussions in person or by phone, and willing to convey patient's wishes as they pertain to medical decisions. Pt expressed that she trusts and would choose her daughter as her MDM proxy with her son in law as secondary. Pt shared that she does have a POLST at home on her refrigerator and confirmed that it states DNR/DNI, limited additional interventions. Pt requests that we revisit discussion tomorrow with plan to complete AD paperwork. She is focused on hunger and impending trip to [place]. Plan to revisit GOC/AD with pt and dtr tomorrow. Admission and Anticipated Discharge Date Admission Date: February 07, 2024 Subjective Patient was seen at the bedside, her dtr and son in law were present. Dtr shared that vascular surgery plans to stent SMA today. Currently pt is laying in bed in NAD, denies current abd. pain, NPO since last evening for procedure. She does c/o pain in sacral area at site of sacral decub. No fever, chills, chest pain, or shortness of breath. Review of Systems Review of Systems: All systems reviewed & are unremarkable except as noted in Subjective Physical Exam Physical Exam: General: ptlying in bed, NAD, on RA Neuro: AAOx3, moves extremities HEENT: PERRLA CV: rrr, mild peripheral edema Resp: Breath sounds clear bilaterally, no increased effort of breathing Abdomen: Soft, +some tenderness to palpation Lower back: stage II sacral ulcer in sacral area Extremities: moves all extremities with normal strength and purpose Results & Data Vital Signs (Past 12 Hours) Vital Signs Temp Pulse Pulse Pulse Resp BP BP 02/15/24 12:34 36.8 C 60 19 02/15/24 12:08 36.8 C 60 124/55 L 02/15/24 12:00 55 L 119/46 L 02/15/24 11:30 52 L 128/56 L 02/15/24 11:00 58 L 123/61 02/15/24 10:30 61 130/49 L 02/15/24 10:00 56 L 122/59 L 02/15/24 09:30 55 L 116/53 L 02/15/24 09:00 57 L 118/54 L 02/15/24 08:47 36.5 C 57 L 02/15/24 08:00 02/15/24 07:55 36.7 C 58 L 22 111/61 02/15/24 02:36 36.8 C 56 L 18 BP Pulse Ox O2 Del Method O2 Flow Rate 02/15/24 12:34 120/55 L 90 Room Air 02/15/24 12:08 02/15/24 12:00 02/15/24 11:30 02/15/24 11:00 02/15/24 10:30 02/15/24 10:00 02/15/24 09:30 02/15/24 09:00 02/15/24 08:47 02/15/24 08:00 Nasal Cannula 2 02/15/24 07:55 91 Room Air 02/15/24 02:36 105/60 94 Nasal Cannula Laboratory Results Abnormal lab results 02/12/24 02/14/24 02/15/24 Range/Units 14:31 20:40 06:11 RBC 2.25 L (4.20-5.40) M/uL Hgb 8.7 L 8.1 L (12.0-16.0) g/dl Hct 27.0 L 25.4 L (37.0-47.0) % MCV 112.9 H (80.0-100.0) fL MCH 36.0 H (25.0-34.0) pg MCHC 31.9 L (32.0-36.0) g/dL RDW Std Deviation 82.0 H (36.4-46.3) fL RDW Coeff of Fior 19.8 H (11.5-14.5) % Plt Count 69 L (130-400) K/uL Lymph # (Auto) 0.61 L (1.20-3.40) K/uL Chloride 109 H (98-107) mmol/L Creatinine 4.84 H* D (0.6-1.2) mg/dl BUN/Creatinine Ratio 4.3 L (10-20) Glucose 68 L (70-99(Fasting)) mg/dl POC Glucose (70-99) mg/dl Calcium 8.2 L (8.6-10.3) mg/dl AST 12 L (13-39) U/L Total Protein 4.9 L (6.0-8.3) gm/dl Albumin 2.7 L (3.4-5.0) gm/dl Globulin 2.2 L (2.5-4.0) gm/dl Crossmatch See Detail 02/15/24 Range/Units 06:14 RBC (4.20-5.40) M/uL Hgb (12.0-16.0) g/dl Hct (37.0-47.0) % MCV (80.0-100.0) fL MCH (25.0-34.0) pg MCHC (32.0-36.0) g/dL RDW Std Deviation (36.4-46.3) fL RDW Coeff of Fior (11.5-14.5) % Plt Count (130-400) K/uL Lymph # (Auto) (1.20-3.40) K/uL Chloride (98-107) mmol/L Creatinine (0.6-1.2) mg/dl BUN/Creatinine Ratio (10-20) Glucose (70-99(Fasting)) mg/dl POC Glucose 69 L* (70-99) mg/dl Calcium (8.6-10.3) mg/dl AST (13-39) U/L Total Protein (6.0-8.3) gm/dl Albumin (3.4-5.0) gm/dl Globulin (2.5-4.0) gm/dl Crossmatch Diagnostic Findings Abdomen/Pelvis CT 02/07/24 13:22 CT OF THE ABDOMEN AND PELVIS WITHOUT CONTRAST CLINICAL HISTORY: Diffuse abdominal pain. COMPARISON STUDY: CT of the abdomen and pelvis January 26, 2024. KUB January 27, 2024. TECHNIQUE: Axial images of the abdomen and pelvis were obtained without IV contrast. Images were reviewed in the axial, sagittal, and coronal planes. Automated exposure control was utilized for the study. A dose lowering technique was utilized adhering to the principles of ALARA. FINDINGS: Evaluation of the abdomen and pelvis is suboptimal on this unenhanced exam. No pneumatosis, free air or portal venous gas is present. There is no significant biliary ductal dilatation status post cholecystectomy. Hypodense splenic lesions are unchanged from earlier exams. These are likely benign. Bilateral adrenal nodules are also unchanged and are likely benign. A cystic 2.7 cm lesion within the pancreatic tail is similar to CT of May 12, 2022. There is no peripancreatic infiltration. A partially calcified nodule along the pancreatic head remains unchanged as well. Both kidneys are markedly atrophic. There is no hydronephrosis. There is colonic diverticulosis without evidence for acute colonic diverticulitis. The small and large bowel is fluid-filled. There is no transition point. There is mild wall thickening of the transverse colon. No fluid collections are present. There are clustered small bowel loops within the lower anterior abdomen on image 203 of 377 with wall thickening and mild adjacent inflammation. Associated small bowel diverticula are likely present. There is no extraluminal gas. This finding is new since prior CT. Lytic lesions within the bilateral acetabula are unchanged in appearance since prior exam. No newly lesions are identified. IMPRESSION: 1. Fluid-filled small and large bowel with mild wall thickening of the transverse colon. The findings may reflect a nonspecific enterocolitis. No transition point to suggest a bowel obstruction. 2. Clustered small bowel loops within the lower anterior abdomen with bowel wall thickening, adjacent inflammation and associated diverticula which contain complex contents/stool. The findings raise the possibility of small bowel diverticulitis. No free air or abscess. 3. No change in appearance of multiple lytic bilateral acetabular lesion since earlier CTs dating back to May 12, 2022. These remain indeterminate. ACT 112: Negative or not required by law. Electronically signed by: Vicente Tapia M.D. 02/07/2024 3:19 PM Abdomen/Pelvis CTA 02/12/24 10:48 CT angio abdomen pelvis w con CLINICAL HISTORY: 78 years-old Female with r/o mesenteric ischemia acute mid abdominal pain COMPARISON STUDY: CT 02/07/2024, May 12, 2022. TECHNIQUE: Following the IV administration of 112 cc of Optiray, CT angiogram of the abdomen and pelvis was performed from the lung bases the proximal femora. Images are reviewed in the axial, sagittal, and coronal planes. 3-D MIPS images are created and assessed. All measurements were obtained according to NASCET criteria. IV contrast was administered without complication. A dose lowering technique was utilized adhering to the principles of ALARA. CT DOSE: 732.49 mGy.cm FINDINGS: CTA: Cardiomegaly with trace pericardial effusion. Extensive atherosclerosis of the abdominal aorta and branch vessels. Celiac trunk is patent with moderate multifocal stenoses of the branch vessels. There is a high-grade stenosis noted within the superior and inferior mesenteric arteries secondary to atherosclerosis. Multifocal high-grade stenoses also noted within the renal arteries. The iliac and imaged femoral arteries are patent. There is a high- grade stenosis in the profunda femoris arteries. No abdominal aortic aneurysm or dissection. CT ABDOMEN/PELVIS: Mild subsegmental left basilar atelectasis. No pneumatosis, free air or portal venous gas is present. There is no significant biliary ductal dilatation status post cholecystectomy. Hypodense splenic lesions, likely benign. Bilateral adrenal nodules are also unchanged and are likely benign. A cystic 2.7 cm lesion within the pancreatic tail is similar to CT of May 12, 2022. There is no peripancreatic infiltration. A partially calcified nodule along the pancreatic head remains unchanged as well. Both kidneys are markedly atrophic. There is no hydronephrosis. There is colonic diverticulosis without evidence for acute colonic diverticulitis. The small and large bowel is fluid-filled it appears similar to prior, again with no identifiable transition point. No fluid collections are present. Previously noted cluster small bowel loops within the lower anterior abdomen which showed wall thickening and mild adjacent inflammation no longer appreciated on today's study. No new areas of bowel wall thickening identified. There is decreased wall thickening of the transverse colon. Lytic lesions within the bilateral acetabula are unchanged in appearance since prior exam. No newly lesions are identified. IMPRESSION: 1. Atherosclerosis of the abdominal aorta without aneurysm or dissection. 2. Extensive atherosclerosis with high grade stenosis noted at the origin of the superior and inferior mesenteric and renal arteries. 3. Findings suggestive of a nonspecific enterocolitis/diarrheal illness with areas of improved wall thickening. No obstruction identified. 4. No pneumatosis or pneumoperitoneum. 5. Atrophic kidneys. 6. Unchanged lytic acetabular lesions. 7. Additional findings as above. ACT 112: Negative or not required by law. The above report was generated using voice recognition software. It may contain grammatical, syntax or spelling errors. Electronically signed by: Elder Osborn M.D. 02/12/2024 2:21 PM Chest X-Ray 02/12/24 13:37 XR chest 1V portable HISTORY: 78 years-old Female Central Line Placement COMPARISON: 02/12/2024 TECHNIQUE: AP view the chest FINDINGS: Cardiomediastinal and hilar silhouettes are unchanged. Right IJ central venous catheter distal tip noted in the expected location of the upper SVC. No pneumothorax, pleural effusion or airspace consolidation. The bones appear intact. IMPRESSION: Status post placement of a right IJ central venous catheter. No postprocedural pneumothorax. ACT 112: Negative or not required by law. The above report was generated using voice recognition software. It may contain grammatical, syntax or spelling errors. Electronically signed by: Elder Osborn M.D. 02/12/2024 2:02 PM Medications Administered Current Inpatient Medications Acetaminophen (Acetaminophen 325 Mg Tab) 650 mg PO Q4H PRN PRN Reason: Mild Pain or Fever Stop: 03/08/24 16:11 Albuterol (Albut/Ipratrop 3mg/0.5mg Neb 3 Ml Vial) 3 ml INH QID PRN; Protocol PRN Reason: Shortness Of Breath Stop: 03/08/24 19:44 Amiodarone HCl (Amiodarone 200 Mg Tab) 200 mg PO DAILY [facility] Stop: 03/09/24 08:59 Last Admin: 02/15/24 12:40 Dose: 200 mg Dextrose (Dextrose 50% 50 Ml Syringe) 25 - 50 ml IV UD PRN; Protocol PRN Reason: Hypoglycemia Protocol Stop: 03/16/24 07:00 Fluticasone Propionate (Fluticasone Propionate Na Spr 16 Gm Btl) 2 sprays NA HS MARY Stop: 03/08/24 20:59 Last Admin: 02/14/24 19:54 Dose: 2 sprays Fluticasone/Vilanterol (Fluticasone/Vilanterol 200/25mcg 14 Puffs/Inhaler) 1 puffs INH DAILY MARY Stop: 03/09/24 08:59 Last Admin: 02/15/24 08:06 Dose: 1 puffs Glucagon (Glucagon For Inj 1 Mg Vial) 1 mg SQ UD PRN; Protocol PRN Reason: Hypoglycemia Protocol Stop: 03/16/24 07:00 Glucose (Glucose 40% Gel 15 Gm Tube) 15 - 30 gm PO UD PRN; Protocol PRN Reason: Hypoglycemia Protocol Stop: 03/16/24 07:00 Glucose (Glucose 10 Tab/Tube) 4 - 8 tab PO UD PRN; Protocol PRN Reason: Hypoglycemia Protocol Stop: 03/16/24 07:00 Heparin Sodium (Porcine) (Heparin Sod 5,000 Unit/0.5 Ml Vial) 5,000 units SQ Q8 MARY Stop: 03/08/24 21:59 Last Admin: 02/12/24 05:57 Dose: 5,000 units Hydromorphone HCl (Hydromorphone Inj 0.5 Mg/0.5 Ml Syr) 0.25 mg IV Q6H PRN PRN Reason: Severe Pain (Scale 7, 8, 9,10) Stop: 02/22/24 10:02 Promethazine HCl (Phenergan) 6.25 mg in 50.25 mls @ 201 mls/hr IV Q6H PRN PRN Reason: Nausea And Vomiting Stop: 03/08/24 19:44 Metronidazole (Flagyl) 500 mg in 100 mls @ 100 mls/hr IV Q8H [facility]; Protocol Stop: 02/18/24 09:29 Last Admin: 02/15/24 13:24 Dose: 100 mls/hr Ceftriaxone Sodium (Rocephin) 2,000 mg in 50 mls @ 100 mls/hr IV Q24H [facility] Stop: 02/18/24 10:14 Last Infusion: 02/15/24 13:21 Dose: Infused Lactobacillus Acidophilus (Advanced Probiotic 625 Mg Capsule) 1,250 mg PO DAILY [facility] Stop: 03/09/24 08:59 Last Admin: 02/15/24 12:40 Dose: 1,250 mg Lidocaine (Lidocaine 4% Cream 15 Gm Tube) 1 appln EXT PRN PRN PRN Reason: Pain Stop: 03/14/24 15:33 Melatonin (Melatonin 3 Mg Tab) 6 mg PO HS PRN PRN Reason: Sleep Stop: 03/08/24 20:59 Last Admin: 02/08/24 22:11 Dose: 6 mg Midodrine (Midodrine Hcl 2.5 Mg Tab) 2.5 mg PO TID@0800,1200,1700 [facility] Stop: 03/15/24 07:59 Last Admin: 02/15/24 12:39 Dose: 2.5 mg Miscellaneous (Lanthanum*Order Awaiting Action) 1 each N/A QS [facility] Stop: 03/09/24 20:14 Last Admin: 02/15/24 08:06 Dose: Not Given Miscellaneous (Carbohydrates For Hypoglycemia ) 15 - 30 gm PO UD PRN PRN Reason: Hypoglycemia Protocol Stop: 03/16/24 07:00 Pantoprazole Sodium (Pantoprazole 40 Mg Tab) 40 mg PO QAM [facility] Stop: 03/15/24 08:59 Last Admin: 02/15/24 12:39 Dose: 40 mg Tramadol HCl (Tramadol Hcl 50 Mg Tablet) 25 mg PO Q4H PRN PRN Reason: Moderate Pain (Scale 4, 5, 6) Stop: 03/09/24 10:02 Last Admin: 02/12/24 08:00 Dose: 25 mg Valacyclovir HCl (Valacyclovir Hcl 500 Mg Tablet) 500 mg PO Q24H [facility] Stop: 03/09/24 15:59 Last Admin: 02/14/24 17:31 Dose: Not Given Vitamin B Complex/Folic Acid (Nephrocaps) 1 cap PO QAM [facility] Stop: 03/09/24 08:59 Last Admin: 02/15/24 08:06 Dose: Not Given PG Care Time/CCT Total # of Minutes Spent Total Time Spent with Patient: Total time spent is greater than 50% in coordination of care (as documented) at patient's floor/unit and/or counseling patient: Advanced Care Planning 79997 Advanced Care Planning 30 Min C[place] [address] SUB INP/OBS CARE 2/35MIN Patient Type Established Medical Decision Making Moderate Complexity Diagnoses Mesenteric ischemia K55.9 Diverticulitis of small bowel K57.12 Abdominal pain R10.84 Abdominal location: generalized ESRD on hemodialysis N18.6; Z99.2 Atrial fibrillation with rapid ventricular response I48.91 Additional Codes Advanced Care Planning - 87122 Advanced Care Planning 30 Min: 63757 Advanced Care Planning 30 Min ([id number]) (3) Abdominal pain Abdominal location: generalized Qualified Code(s): R10.84 - Generalized abdom inal pain
--- NOTE | 2024-02-16 09:32 | Palliative Family Discussion ---
Date of Service February 16, 2024 Patient Directed Conference Topics of Discussion
[2024-02-16 09:51] LABS: BUN Creatinine Ratio 3.3 (10-20); Creatinine Clr Calc Pharmacy 13.5 ml/min; Magnesium 1.8 mg/dl (1.7-2.4); Phosphorus 2.6 mg/dl (2.5-4.9); Potassium 4.1 mmol/L (3.5-5.1)
--- NOTE | 2024-02-16 11:06 | Nephrology Progress Note ---
Date of Service February 16, 2024 Assessment & Plan (1) ESRD on hemodialysis: Plan: Long standing ESRD patient with Anuria. has a good Left UE AVF for access; no issues continues to be vol depleted from Acute GI issues/chronic diarrhea and poor Appetite. leukocytosis labile but overall improving from 31 11/ > 10 > 26 >13 yesterday. hgb 9.7 > 10.2 > 9.2 > 7.6 > 8.1 yesterday -- had 4K units epo 02/09 and 02/12; had 20K units 02/14 02/09 had no UF and had gentle IVF d5nss at 60/hr. No UF w/ 02/12 tx either; for 02/14 tolerated 1L on full liquid diet >> fluid restriction not indicated; dialysis diet not indicated at this time as K 4.1 / controlled continue to hold renvela and encourage po when no longer NPO; would not worry about phos binders currently >>next HD 02/16 for Tuesday >> goal 1.5L UF as tolerated continue low dose standing midodrine; else would not intervene specifically for hypotension Care coordinated w/ Dr Ortega via TText re HD planning, anemia mgt, possible transfer; we are in agreement. (2) Mesenteric ischemia: Plan: vascular suggests mesenteric angio w/ SMA stent initially but w/ concerns for anatomy of lesions and anemia trends and obligate plavix post stent. working on transfer to tertiary care -high risk surgery even endovascular but no other prospects for relief/symptom mgt -cardiology concerns re potential bleeding w/ single v dual anti plt therapy noted given past bleeding w/ AC for a fib (3) Diverticulitis of small bowel: Plan: Reason for Admission. has Sig symptoms and very very high WBC at 31K peak on 02/07; WBC climbing again and w/ ongoing abd pain, minimal po, and ongoing disruptive diarrhea. On flagyl and Ceftraizxone. All abx Can be continued. (4) Atrial fibrillation with rapid ventricular response: Plan: s/p cardioversion; rate controlled now >>maintain mag of 2 and K of 4 >> no supplementation needed for mag 1.8, K 4.1 Admission and Anticipated Discharge Date Admission Date: February 07, 2024 Subjective vascular concerned about high risk for OR w/ bleeding potential and lesion anatomy; no sob; ongoing abd pain intermittently but ok this am; managed some pudding and ice creatm today; niece at bedside Review of Systems 2 Review of Systems: All systems reviewed & are unremarkable except as noted in Subjective Physical Exam 2 Constitutional: well developed, + thin, + frail appearing and cooperative; no acute distress ENMT: Mouth: + dry oral mucous membranes Respiratory: normal respiratory effort Auscultation: + diminished lung sounds Cardiovascular: Rate/Rhythm: regular rate and regular rhythm Extremities: + AV fistula; no edema Musculoskeletal: Extremities: strength 5/5 throughout Skin: no rashes, warm and dry Results & Data Vital Signs (Past 12 Hours) Vital Signs Temp Pulse Pulse Pulse Resp BP BP 02/16/24 07:47 37.2 C 66 16 119/74 02/16/24 03:55 37.0 C 66 16 120/62 02/16/24 00:00 61 02/15/24 23:41 36.8 C 61 17 123/52 L Pulse Ox O2 Del Method O2 Flow Rate 02/16/24 07:47 91 Nasal Cannula 3 02/16/24 03:55 90 Nasal Cannula 2 02/16/24 00:00 02/15/24 23:41 93 Nasal Cannula 2 Laboratory Results 02/15/24 06:11 02/16/24 07:41
--- NOTE | 2024-02-16 11:44 | Cardiology Progress Note ---
Date of Service February 16, 2024 Assessment & Plan (1) Paroxysmal atrial fibrillation: (2) ESRD (end stage renal disease) on dialysis: (3) Chronic respiratory failure with hypoxia: (4) Mesenteric ischemia: Plan 02/16/24: In SR. Continue amiodarone 200 mg daily. Continue midodrine 2.5 mg TID. Admission and Anticipated Discharge Date Admission Date: February 07, 2024 Subjective Patient seen in cardiology follow up. No acute complaints. Tolerated breakfast this am. SR in the 60s noted on telemetry. Physical Exam Physical Exam: General: Alert to person and place. No acute distress. Lethargic. Neck: No JVD -R IJ central line Heart: RRR. Systolic murmur. No rub. Lungs: Clear to auscultation anteriorly. Abdomen: +BS. Nontender. No organomegaly. Extremities: No clubbing, cyanosis, or edema. Limited neurological examination is without focal deficits. Results & Data Vital Signs (Past 12 Hours) Vital Signs Temp Pulse Pulse Pulse Resp BP BP 02/16/24 11:00 36.9 C 63 16 124/53 L 02/16/24 07:47 37.2 C 66 16 119/74 02/16/24 03:55 37.0 C 66 16 120/62 02/16/24 00:00 61 Pulse Ox O2 Del Method O2 Flow Rate 02/16/24 11:00 92 Nasal Cannula 2 02/16/24 07:47 91 Nasal Cannula 3 02/16/24 03:55 90 Nasal Cannula 2 02/16/24 00:00
[2024-02-17 07:03] LABS: Hemoglobin 8.3 g/dl (12.0-16.0); Mean Corpuscular Hemoglobin 36.4 pg (25.0-34.0); Mean Corpuscular Hgb Conc 31.9 g/dL (32.0-36.0); Mean Platelet Volume 11.9 fL (9.4-12.4); Platelet Count 71 K/uL (130-400); RDW Coefficient of Variation 19.2 % (11.5-14.5); RDW Standard Deviation 78.3 fL (36.4-46.3); Red Blood Count 2.28 M/uL (4.20-5.40); White Blood Count 7.14 K/ul (4.8-10.8)
[2024-02-17 07:38] LABS: BUN Creatinine Ratio 3.6 (10-20); Calcium 7.8 mg/dl (8.6-10.3); Creatinine Clr Calc Pharmacy 9.9 ml/min; Magnesium 1.8 mg/dl (1.7-2.4); Phosphorus 3.1 mg/dl (2.5-4.9); Potassium 3.9 mmol/L (3.5-5.1)
--- NOTE | 2024-02-17 07:44 | Hospitalist Progress Note ---
Date of Service February 16, 2024 (late entry) Assessment & Plan (1) Abdominal pain: (2) Diverticulitis of small bowel: (3) Enterocolitis: (4) ESRD (end stage renal disease) on dialysis: Plan Per previous hospitalist with addendum: This is a 78-year-old female who has a significant past medical history of chronic hypoxic respiratory failure on 3 L of O2, COPD, PAF off anticoagulation secondary to bleeding, mesenteric artery stenosis, HTN, mitral regurgitation, ESRD on HD, HLD, T2DM, secondary hyperparathyroidism, anemia and ESRD, hypogammaglobinemia and history of tobacco abuse who presents to ED secondary to abdominal pain. Recent admission 01/23 - 01/29 for near syncope. Seen and evaluated by cardiology. Serena possibly 2/2 labile HTN with HD, Lisinopril stopped and midodrine 3x weekly continued. She developed abd pain throughout stay and diarrhea. Stool biofire and for cdiff negative. Empirically started on oral vanco and discharged to [facility]. While at [facility] pt has been having worsening abd pain, n/v/d. Vanco increased to 250mg QID. She was borderline hypotensive and wbc climbing so sent to ED for eval. 02/12/2024: Case discussed multiple times during the day with general surgery and nephrology. General surgery requesting CTA of the abdomen pelvis given patient's persistent significant tenderness to palpation on exam. Concern for mesenteric ischemia given patient's complex medical history. Case further discussed with nephrology who advised can proceed with IV contrast for the needed CTA of the abdomen pelvis to rule out mesenteric ischemia. Later notified by nursing that patient was a "code purple" in the CT area. Patient was seen at that time by ER physician Dr. Parth Bliss who noted that she was hypotensive and in A-fib with RVR. Patient then became unresponsive and was then cardioverted at that time into sinus rhythm. she was transferred to the ICU and had a central and arterial line placed, concern for her requiring pressor support. Noted severe metabolic acidosis. She was awake and responsive to her name, eventually stating at one point that she would like to have a bowel movement. Her daughter Deplhine was contacted via telephone and advised of the day's ev ents. She later presented to bedside in room 103 in the ICU. ICU physician had extensive discussion with daughter and son-in-law at bedside explaining patient's medical course at this time and her will to live despite her chronic progressing medical conditions. Daughter notes that patient has purposely not signed a POA but did make her wishes known to her daughter that she does not want to be in the [facility] and would likely not want to have surgery should the CTA of the abdomen pelvis note mesenteric ischemia. Discussion of patient's full CODE STATUS and daughter agreeing that based on patient's wishes she would want to be a DNR/DNI. Patient's daughter also agreeing to a palliative care consult to discuss goals of care further and what her future care could look like. Pt made DNR/DNI Palliative care consulted Appreciate care and recs of ICU at this time. Cardiology also consulted. 02/13/2024- patient still ICU status. CTA abdomen pelvis noting "high grade stenosis noted at the origin of the superior and inferior mesenteric and renal arteries." Vascular surgery was consulted and recommends stenting. Patient discussing with daughter and son-in-law whether she wants to proceed with surgery. palliative care consult still pending. CT abdomen pelvis also noting improved colitis. Continue with antibiotics. 02/14/2024- patient and family agreeable to having vascular surgery tomorrow where stent will be placed in her SMA. cardiology providing recs for anticoagulation needed postop. Patient stable today and has been downgraded from the ICU. 02/14 - pt seen on HD, discussed w/ Dr. Reed at the HD bed Abdominal Pain Diverticulitis of the small bowel Possible persistent/recurrent c diff colitis Pt with significant leukocytosis WBC > 30K, now normalized CT noting concern for diverticulitis stool cultures negative Repeat C. difficile testing was initially not able to be obtained before treatment. Eventually obtained on 02/10 after abx treatments and was negative NPO--> transitioned to clears on 02/09/24, full liquids on 02/10/24 and low fiber diet on 02/11/24. per nursing, patient without much intake IV zosyn switched to IV Rocephin and IV Flagyl for treatment of diverticulitis, p.o. vancomycin 500mg every 6 hours also added for treatment of likely C. difficile colitis along with IV Flagyl probiotic daily consult general surg, appreciate recs -continue with full liquids as abd still sig tender to palpation -Continue abx regimen Infectious disease consulted, appreciate recs continue to monitor Mesenteric ischemia Pt with SMA and IVANA stenosis on CTA abd/pelvis, also with exquisite tenderness to entire abd. Hx positive for post prandial pain as well as pain while eating which limits her intake, as well as some weight loss. Dr. Vale recommends pt undergo mesenteric angio with IS ANALYST/stenting of SMA. After further discussion, it was recommended that pt would be transferred to tertiary center for the procedure - C contacted - discussed w/ vasc. surgery, gen. surgery, GI, hospitalist - pt was eventually not accepted for transfer and it was recommended that pt follows up with vasc. surgery as outpt 02/15 Abdominal pain is overall improving, WBC normalized, pt is attempting to eat PAF Pt flipped from sinus rhythm to atrial fibrillation in the AM of 02/09 Per chart review appears that her amiodarone had not been given on 02/08/2024. However per chart review and discussion with nurses she did receive her dose on 02/08, 02/09 and 02/10 and 02/11 her heart rates are currently controlled continue amiodarone 200 mg daily, off oral anticoagulation due to bleeding Continue to monitor on telemetry, rate has been improving Cardiology consulted and following, appreciate their input ESRD on HD: typically T//Tue however while at [facility] is on MWF Nephrology following Sacral Wound Pt with stage II sacral ulcer Continue offloading as tolerated Wound consult Chronic hypoxic resp failure on 3.5L/COPD continue home inhalers Anemia of Chronic Disease hgb stable 11.4 monitor no s/sx of bleeding Chronic HFpEF, mod to severe MR volume status via HD Hx of T2DM last a1c in Mar was 5.9 5.9 on repeat this admission Thrombocytopenia Platelets have been downtrending Holding heparin for DVT prophylaxis Peripheral smear - The peripheral blood smear shows macrocytic appearing erythrocytes without significant anisopoikilocytosis. Polychromatophilic cells (a subset of reticulocytes) are noted but not markedly increased. I do not see significant numbers of schistocytes or spherocytes indicative of a hemolytic process. Leukocytes appear normal in number, relative distribution and morphology. Platelets are decreased in number and are unremarkable in appearance. I do not see any significant number of platelet clumps resulting in an artifactual thrombocytopenia.The associated CBC shows a HGB of 8.1 with high MCV and low platelets (69,000).The major findings are macrocytic anemia and thrombocytopenia. The macrocytic anemia appears to be long standing based on review of older CBC's.Besides megaloblastic anemias and MDS, macrocytosis may also be seen in association with certain medications (i.e. primarily chemotherapy drugs), alcohol usage, non-alcoholic liver disease and hypothyroidism (more commonly in elderly). Increased reticulocytes can also elevate the MCV due to their large size.Total bilirubin, B12 and folate are unremarkable. A recent TSH was normal. If clinically indicated then a reticulocyte count is suggested.No overt morphologic abnormalities, including changes of a myelodysplastic syndrome or hemolytic anemia, are seen though neither is excluded, in particular MDS given the long standing macrocytic anemia.Darinel Grossman M.D. Diet: on full liquids, advance as tolerated DVT ppx: SQ Heparin on hold in setting of thrombocytopenia Dispo: PT/OT for further recs once medically stable Admission and Anticipated Discharge Date Admission Date: February 07, 2024 Subjective Patient seen in follow up Pt with ESRD on HD, w/ abdominal pain - diverticulitis, but abdominal pain improving and WBC down to normal now Plan was for SMA stent w/ vasc. surgery - which was then cancelled and transfer to tertiary center attempted instead for the procedure, pt was not accepted for transfer at this time Daughter Delphine updated at the bedside Currently pt is laying in bed in NAD No fever, chills, chest pain, or shortness of breath appetite poor but improving Review of Systems Review of Systems: All systems reviewed & are unremarkable except as noted in Subjective Physical Exam Physical Exam: General: elderly slim F in NAD, on suppl. O2, on HD Neuro: AAOx3, moves extremities HEENT: NC/AT CV: rrr Resp: Breath sounds clear bilaterally, no increased effort of breathing Abdomen: Soft, +some tenderness to palpation but improved Lower back: stage II sacral ulcer in sacral area Extremities: no LE edema, moves extremities Results & Data Results & Data Vital Signs (Past 12 Hours) Vital Signs Temp Pulse Pulse Resp BP BP Pulse Ox 02/16/24 22:50 37.0 C 64 16 118/50 L 90 02/16/24 20:39 36.6 C 60 16 120/74 93 02/16/24 20:00 O2 Del Method O2 Flow Rate 02/17/24 07:39 Nasal Cannula 3 02/17/24 04:09 Nasal Cannula 3 02/17/24 00:00 02/16/24 22:50 Nasal Cannula 3 02/16/24 20:39 Nasal Cannula 3 02/16/24 20:00 Nasal Cannula 3 Medications Administered Current Inpatient Medications Acetaminophen (Acetaminophen 325 Mg Tab) 650 mg PO Q4H PRN PRN Reason: Mild Pain or Fever Stop: 03/08/24 16:11 Albuterol (Albut/Ipratrop 3mg/0.5mg Neb 3 Ml Vial) 3 ml INH QID PRN; Protocol PRN Reason: Shortness Of Breath Stop: 03/08/24 19:44 Amiodarone HCl (Amiodarone 200 Mg Tab) 200 mg PO DAILY MARY Stop: 03/09/24 08:59 Last Admin: 02/16/24 08:49 Dose: 200 mg Dextrose (Dextrose 50% 50 Ml Syringe) 25 - 50 ml IV UD PRN; Protocol PRN Reason: Hypoglycemia Protocol Stop: 03/16/24 07:00 Fluticasone Propionate (Fluticasone Propionate Na Spr 16 Gm Btl) 2 sprays NA HS MARY Stop: 03/08/24 20:59 Last Admin: 02/16/24 19:55 Dose: 2 sprays Fluticasone/Vilanterol (Fluticasone/Vilanterol 200/25mcg 14 Puffs/Inhaler) 1 puffs INH DAILY MARY Stop: 03/09/24 08:59 Last Admin: 02/16/24 08:50 Dose: 1 puffs Glucagon (Glucagon For Inj 1 Mg Vial) 1 mg SQ UD PRN; Protocol PRN Reason: Hypoglycemia Protocol Stop: 03/16/24 07:00 Glucose (Glucose 40% Gel 15 Gm Tube) 15 - 30 gm PO UD PRN; Protocol PRN Reason: Hypoglycemia Protocol Stop: 03/16/24 07:00 Glucose (Glucose 10 Tab/Tube) 4 - 8 tab PO UD PRN; Protocol PRN Reason: Hypoglycemia Protocol Stop: 03/16/24 07:00 Heparin Sodium (Porcine) (Heparin Sod 5,000 Unit/0.5 Ml Vial) 5,000 units SQ Q8 MARY Stop: 03/08/24 21:59 Last Admin: 02/12/24 05:57 Dose: 5,000 units Heparin Sodium (Porcine) (Heparin Sod (Porcine) 1000 Unit/Ml) 800 units IV Q1H [facility] Stop: 02/17/24 09:01 Hydromorphone HCl (Hydromorphone Inj 0.5 Mg/0.5 Ml Syr) 0.25 mg IV Q6H PRN PRN Reason: Severe Pain (Scale 7, 8, 9,10) Stop: 02/22/24 10:02 Promethazine HCl (Phenergan) 6.25 mg in 50.25 mls @ 201 mls/hr IV Q6H PRN PRN Reason: Nausea And Vomiting Stop: 03/08/24 19:44 Metronidazole (Flagyl) 500 mg in 100 mls @ 100 mls/hr IV Q8H [facility]; Protocol Stop: 02/18/24 09:29 Last Infusion: 02/17/24 03:29 Dose: Infused Ceftriaxone Sodium (Rocephin) 2,000 mg in 50 mls @ 100 mls/hr IV Q24H [facility] Stop: 02/18/24 10:14 Last Infusion: 02/16/24 10:35 Dose: Infused Lactobacillus Acidophilus (Advanced Probiotic 625 Mg Capsule) 1,250 mg PO DAILY [facility] Stop: 03/09/24 08:59 Last Admin: 02/16/24 08:50 Dose: 1,250 mg Lidocaine (Lidocaine 4% Cream 15 Gm Tube) 1 appln EXT PRN PRN PRN Reason: Pain Stop: 03/14/24 15:33 Melatonin (Melatonin 3 Mg Tab) 6 mg PO HS PRN PRN Reason: Sleep Stop: 03/08/24 20:59 Last Admin: 02/08/24 22:11 Dose: 6 mg Midodrine (Midodrine Hcl 2.5 Mg Tab) 2.5 mg PO TID@0800,1200,1700 [facility] Stop: 03/15/24 07:59 Last Admin: 02/16/24 17:00 Dose: 2.5 mg Miscellaneous (Lanthanum*Order Awaiting Action) 1 each N/A QS [facility] Stop: 03/09/24 20:14 Last Admin: 02/17/24 01:15 Dose: Not Given Miscellaneous (Carbohydrates For Hypoglycemia ) 15 - 30 gm PO UD PRN PRN Reason: Hypoglycemia Protocol Stop: 03/16/24 07:00 Pantoprazole Sodium (Pantoprazole 40 Mg Tab) 40 mg PO QAM [facility] Stop: 03/15/24 08:59 Last Admin: 02/16/24 08:50 Dose: 40 mg Tramadol HCl (Tramadol Hcl 50 Mg Tablet) 25 mg PO Q4H PRN PRN Reason: Moderate Pain (Scale 4, 5, 6) Stop: 03/09/24 10:02 Last Admin: 02/12/24 08:00 Dose: 25 mg Valacyclovir HCl (Valacyclovir Hcl 500 Mg Tablet) 500 mg PO Q24H [facility] Stop: 03/09/24 15:59 Last Admin: 02/16/24 17:00 Dose: 500 mg Vitamin B Complex/Folic Acid (Nephrocaps) 1 cap PO QAM [facility] Stop: 03/09/24 08:59 Last Admin: 02/16/24 09:59 Dose: 1 cap
--- NOTE | 2024-02-17 07:45 | Hospitalist Progress Note ---
Date of Service February 17, 2024 Assessment & Plan (1) Abdominal pain: (2) Diverticulitis of small bowel: (3) Enterocolitis: (4) ESRD (end stage renal disease) on dialysis: Plan Per previous hospitalist with addendum: This is a 78-year-old female who has a significant past medical history of chronic hypoxic respiratory failure on 3 L of O2, COPD, PAF off anticoagulation secondary to bleeding, mesenteric artery stenosis, HTN, mitral regurgitation, ESRD on HD, HLD, T2DM, secondary hyperparathyroidism, anemia and ESRD, hypogammaglobinemia and history of tobacco abuse who presents to ED secondary to abdominal pain. Recent admission 01/23 - 01/29 for near syncope. Seen and evaluated by cardiology. [place] possibly 2/2 labile HTN with HD, Lisinopril stopped and midodrine 3x weekly continued. She developed abd pain throughout stay and diarrhea. Stool biofire and for cdiff negative. Empirically started on oral vanco and discharged to [facility]. While at [facility] pt has been having worsening abd pain, n/v/d. Vanco increased to 250mg QID. She was borderline hypotensive and wbc climbing so sent to ED for eval. 02/12/2024: Case discussed multiple times during the day with general surgery and nephrology. General surgery requesting CTA of the abdomen pelvis given patient's persistent significant tenderness to palpation on exam. Concern for mesenteric ischemia given patient's complex medical history. Case further discussed with nephrology who advised can proceed with IV contrast for the needed CTA of the abdomen pelvis to rule out mesenteric ischemia. Later notified by nursing that patient was a "code purple" in the CT area. Patient was seen at that time by ER physician Dr. Parth Bliss who noted that she was hypotensive and in A-fib with RVR. Patient then became unresponsive and was then cardioverted at that time into sinus rhythm. she was transferred to the ICU and had a central and arterial line placed, concern for her requiring pressor support. Noted severe metabolic acidosis. She was awake and responsive to her name, eventually stating at one point that she would like to have a bowel movement. 02/13/2024- patient still ICU status. CTA abdomen pelvis noting "high grade stenosis noted at the origin of the superior and inferior mesenteric and renal arteries." Vascular surgery was consulted and recommends stenting. Patient discussing with daughter and son-in-law whether she wants to proceed with surgery. palliative care consult still pending. CT abdomen pelvis also noting improved colitis. Continue with antibiotics. Abdominal Pain Diverticulitis of the small bowel Possible persistent/recurrent c diff colitis Pt with significant leukocytosis WBC > 30K, now normalized CT noting concern for diverticulitis stool cultures negative Repeat C. difficile testing was initially not able to be obtained before treatment. Eventually obtained on 02/10 after abx treatments and was negative NPO--> transitioned to clears on 02/09/24, full liquids on 02/10/24 and low fiber diet on 02/11/24. per nursing, patient without much intake IV zosyn switched to IV Rocephin and IV Flagyl for treatment of diverticulitis, p.o. vancomycin 500mg every 6 hours also added for treatment of likely C. difficile colitis along with IV Flagyl probiotic daily consult general surg, appreciate recs -continue with full liquids as abd still sig tender to palpation -Continue abx regimen Infectious disease consulted, appreciate recs continue to monitor Mesenteric ischemia Pt with SMA and IVANA stenosis on CTA abd/pelvis, also with exquisite tenderness to entire abd. Hx positive for post prandial pain as well as pain while eating which limits her intake, as well as some weight loss. Dr. Vale recommends pt undergo mesenteric angio with [employer]/stenting of SMA. After further discussion, it was recommended that pt would be transferred to tertiary center for the procedure - [facility] [place] - discussed w/ vasc. surgery, gen. surgery, GI, hospitalist - pt was eventually not accepted for transfer and it was recommended that pt follows up with vasc. surgery as outpt 02/15 Abdominal pain is overall improving, WBC normalized, pt is attempting to eat PAF Pt flipped from sinus rhythm to atrial fibrillation in the AM of 02/09 Per chart review appears that her amiodarone had not been given on 02/08/2024. However per chart review and discussion with nurses she did receive her dose on 02/08, 02/09 and 02/10 and 02/11 her heart rates are currently controlled continue amiodarone 200 mg daily, off oral anticoagulation due to bleeding Continue to monitor on telemetry, rate has been improving Cardiology consulted and following, appreciate their input ESRD on HD: typically T//Sat however while at [facility] is on F Nephrology following Sacral Wound Pt with stage II sacral ulcer Continue offloading as tolerated Wound consult Chronic hypoxic resp failure on 3.5L/COPD continue home inhalers Anemia of Chronic Disease hgb stable 11.4 monitor no s/sx of bleeding Chronic HFpEF, mod to severe MR volume status via HD Hx of T2DM last a1c in Mar was 5.9 5.9 on repeat this admission Thrombocytopenia Platelets have been downtrending Holding heparin for DVT prophylaxis Peripheral smear - The peripheral blood smear shows macrocytic appearing erythrocytes without significant anisopoikilocytosis. Polychromatophilic cells (a subset of reticulocytes) are noted but not markedly increased. I do not see significant numbers of schistocytes or spherocytes indicative of a hemolytic process. Leukocytes appear normal in number, relative distribution and morphology. Platelets are decreased in number and are unremarkable in appearance. I do not see any significant number of platelet clumps resulting in an artifactual thrombocytopenia.The associated CBC shows a HGB of 8.1 with high MCV and low platelets (69,000).The major findings are macrocytic anemia and thrombocytopenia. The macrocytic anemia appears to be long standing based on review of older CBC's.Besides megaloblastic anemias and MDS, macrocytosis may also be seen in association with certain medications (i.e. primarily chemotherapy drugs), alcohol usage, non-alcoholic liver disease and hypothyroidism (more commonly in elderly). Increased reticulocytes can also elevate the MCV due to their large size.Total bilirubin, B12 and folate are unremarkable. A recent TSH was normal. If clinically indicated then a reticulocyte count is suggested.No overt morphologic abnormalities, including changes of a myelodysplastic syndrome or hemolytic anemia, are seen though neither is excluded, in particular MDS given the long standing macrocytic an emia.Darinel Grossman M.D. Diet: on full liquids, advance as tolerated DVT ppx: SQ Heparin on hold in setting of thrombocytopenia Dispo: PT/OT for further recs once medically stable Admission and Anticipated Discharge Date Admission Date: February 07, 2024 Subjective Patient seen in follow up Pt with ESRD on HD, w/ abdominal pain - diverticulitis - treated with cef + flagyl, abdominal pain improving and WBC normalized now Plan was for SMA stent w/ vasc. surgery - which was then cancelled and transfer to tertiary center attempted instead, pt was not accepted for transfer at this time Daughter Delphine updated at the bedside Currently pt is sitting up in bed in NAD No fever, chills, chest pain, or shortness of breath appetite poor but improving, postprandial pain improving Review of Systems Review of Systems: All systems reviewed & are unremarkable except as noted in Subjective Physical Exam Physical Exam: General: elderly slim F in NAD, on suppl. O2, on HD Neuro: AAOx3, moves extremities HEENT: NC/AT CV: rrr Resp: Breath sounds clear bilaterally, no increased effort of breathing Abdomen: Soft, +some tenderness to palpation but improved Lower back: stage II sacral ulcer in sacral area Extremities: no LE edema, moves extremities Results & Data Results & Data Vital Signs (Past 12 Hours) Vital Signs Temp Pulse Pulse Resp BP BP Pulse Ox 02/17/24 07:39 36.7 C 68 17 120/50 L 91 02/17/24 04:09 36.9 C 60 16 117/69 91 02/17/24 00:00 59 L 02/16/24 22:50 37.0 C 64 16 118/50 L 90 02/16/24 20:39 36.6 C 60 16 120/74 93 02/16/24 20:00 O2 Del Method O2 Flow Rate 02/17/24 07:39 Nasal Cannula 3 02/17/24 04:09 Nasal Cannula 3 02/17/24 00:00 02/16/24 22:50 Nasal Cannula 3 02/16/24 20:39 Nasal Cannula 3 02/16/24 20:00 Nasal Cannula 3 Laboratory Results 02/17/24 02/16/24 Range/Units 06:39 07:41 WBC 7.14 (4.8-10.8) K/ul RBC 2.28 L (4.20-5.40) M/uL Hgb 8.3 L (12.0-16.0) g/dl Hct 26.0 L (37.0-47.0) % MCV 114.0 H (80.0-100.0) fL MCH 36.4 H (25.0-34.0) pg MCHC 31.9 L (32.0-36.0) g/dL RDW Std Deviation 78.3 H (36.4-46.3) fL RDW Coeff of Fior 19.2 H (11.5-14.5) % Plt Count 71 L (130-400) K/uL MPV 11.9 (9.4-12.4) fL Sodium 144 144 (136-145) mmol/L Potassium 3.9 4.1 (3.5-5.1) mmol/L Chloride 108 H 108 H (98-107) mmol/L Carbon Dioxide 29 29 (21-32) mmol/L Anion Gap 7 7 (3-11) BUN 18 12 (6-23) mg/dl Creatinine 4.97 H* D 3.66 H D (0.6-1.2) mg/dl Est Cr Clr Drug Dosing 9.9 13.5 ml/min eGFR 8.52 12.31 BUN/Creatinine Ratio 3.6 L 3.3 L (10-20) Glucose 71 75 (70-99(Fasting)) mg/dl Calcium 7.8 L 8.0 L (8.6-10.3) mg/dl Phosphorus 3.1 2.6 D (2.5-4.9) mg/dl Magnesium 1.8 1.8 (1.7-2.4) mg/dl Iron 21 L (35-150) mcg/dl TIBC 81 L (250-450) mcg/dl Unsaturated IBC 60 L (155-355) mcg/dl Transferrin % Sat 26 (15-50) % Medications Administered Current Inpatient Medications Acetaminophen (Acetaminophen 325 Mg Tab) 650 mg PO Q4H PRN PRN Reason: Mild Pain or Fever Stop: 03/08/24 16:11 Albuterol (Albut/Ipratrop 3mg/0.5mg Neb 3 Ml Vial) 3 ml INH QID PRN; Protocol PRN Reason: Shortness Of Breath Stop: 03/08/24 19:44 Amiodarone HCl (Amiodarone 200 Mg Tab) 200 mg PO DAILY MARY Stop: 03/09/24 08:59 Last Admin: 02/16/24 08:49 Dose: 200 mg Dextrose (Dextrose 50% 50 Ml Syringe) 25 - 50 ml IV UD PRN; Protocol PRN Reason: Hypoglycemia Protocol Stop: 03/16/24 07:00 Fluticasone Propionate (Fluticasone Propionate Na Spr 16 Gm Btl) 2 sprays NA HS MARY Stop: 03/08/24 20:59 Last Admin: 02/16/24 19:55 Dose: 2 sprays Fluticasone/Vilanterol (Fluticasone/Vilanterol 200/25mcg 14 Puffs/Inhaler) 1 puffs INH DAILY MARY Stop: 03/09/24 08:59 Last Admin: 02/16/24 08:50 Dose: 1 puffs Glucagon (Glucagon For Inj 1 Mg Vial) 1 mg SQ UD PRN; Protocol PRN Reason: Hypoglycemia Protocol Stop: 03/16/24 07:00 Glucose (Glucose 40% Gel 15 Gm Tube) 15 - 30 gm PO UD PRN; Protocol PRN Reason: Hypoglycemia Protocol Stop: 03/16/24 07:00 Glucose (Glucose 10 Tab/Tube) 4 - 8 tab PO UD PRN; Protocol PRN Reason: Hypoglycemia Protocol Stop: 03/16/24 07:00 Heparin Sodium (Porcine) (Heparin Sod 5,000 Unit/0.5 Ml Vial) 5,000 units SQ Q8 MARY Stop: 03/08/24 21:59 Last Admin: 02/12/24 05:57 Dose: 5,000 units Heparin Sodium (Porcine) (Heparin Sod (Porcine) 1000 Unit/Ml) 800 units IV Q1H [facility] Stop: 02/17/24 09:01 Hydromorphone HCl (Hydromorphone Inj 0.5 Mg/0.5 Ml Syr) 0.25 mg IV Q6H PRN PRN Reason: Severe Pain (Scale 7, 8, 9,10) Stop: 02/22/24 10:02 Promethazine HCl (Phenergan) 6.25 mg in 50.25 mls @ 201 mls/hr IV Q6H PRN PRN Reason: Nausea And Vomiting Stop: 03/08/24 19:44 Metronidazole (Flagyl) 500 mg in 100 mls @ 100 mls/hr IV Q8H MARY; Protocol Stop: 02/18/24 09:29 Last Infusion: 02/17/24 03:29 Dose: Infused Ceftriaxone Sodium (Rocephin) 2,000 mg in 50 mls @ 100 mls/hr IV Q24H [facility] Stop: 02/18/24 10:14 Last Infusion: 02/16/24 10:35 Dose: Infused Lactobacillus Acidophilus (Advanced Probiotic 625 Mg Capsule) 1,250 mg PO DAILY [facility] Stop: 03/09/24 08:59 Last Admin: 02/16/24 08:50 Dose: 1,250 mg Lidocaine (Lidocaine 4% Cream 15 Gm Tube) 1 appln EXT PRN PRN PRN Reason: Pain Stop: 03/14/24 15:33 Melatonin (Melatonin 3 Mg Tab) 6 mg PO HS PRN PRN Reason: Sleep Stop: 03/08/24 20:59 Last Admin: 02/08/24 22:11 Dose: 6 mg Midodrine (Midodrine Hcl 2.5 Mg Tab) 2.5 mg PO TID@0800,1200,1700 [facility] Stop: 03/15/24 07:59 Last Admin: 02/16/24 17:00 Dose: 2.5 mg Miscellaneous (Lanthanum*Order Awaiting Action) 1 each N/A QS [facility] Stop: 03/09/24 20:14 Last Admin: 02/17/24 01:15 Dose: Not Given Miscellaneous (Carbohydrates For Hypoglycemia ) 15 - 30 gm PO UD PRN PRN Reason: Hypoglycemia Protocol Stop: 03/16/24 07:00 Pantoprazole Sodium (Pantoprazole 40 Mg Tab) 40 mg PO QAM [facility] Stop: 03/15/24 08:59 Last Admin: 02/16/24 08:50 Dose: 40 mg Tramadol HCl (Tramadol Hcl 50 Mg Tablet) 25 mg PO Q4H PRN PRN Reason: Moderate Pain (Scale 4, 5, 6) Stop: 03/09/24 10:02 Last Admin: 02/12/24 08:00 Dose: 25 mg Valacyclovir HCl (Valacyclovir Hcl 500 Mg Tablet) 500 mg PO Q24H [facility] Stop: 03/09/24 15:59 Last Admin: 02/16/24 17:00 Dose: 500 mg Vitamin B Complex/Folic Acid (Nephrocaps) 1 cap PO QAM [facility] Stop: 03/09/24 08:59 Last Admin: 02/16/24 09:59 Dose: 1 cap
--- NOTE | 2024-02-17 09:29 | Dialysis Progress Note ---
Date of Service February 17, 2024 Assessment & Plan (1) ESRD on hemodialysis: Plan: Long standing ESRD patient with Anuria. has a good Left UE AVF for access; no issues continues to be vol depleted from Acute GI issues/chronic diarrhea and poor Appetite. leukocytosis labile but overall improving from 31 02/07 > 10 > 26 >13 >7 hgb 9.7 > 10.2 > 9.2 > 7.6 > 8.3 -- had 4K units epo 02/09 and 02/12; had 20K units 02/14 and 02/16 02/09 had no UF and had gentle IVF d5nss at 60/hr. No UF w/ 02/12 tx either; for 02/14 tolerated 1L t sat 26% February 16>> will give venofer 50 mg every Tuesday, starting today on full liquid diet >> fluid restriction not indicated; dialysis diet not indicated at this time as K 4.1 / controlled continue to hold renvela and encourage po when no longer NPO; would not worry about phos binders currently >>next HD 02/19 > Gave only the bolus of heparin with dialysis today and L saline flushes given thrombocytopenia which is new continue low dose standing midodrine; else would not intervene specifically for hypotension Care coordinated w/ Dr Ortega via TText re HD planning, anemia mgt, surgical and discharge disposition; we are in agreement. (2) Mesenteric ischemia: Plan: vascular suggests mesenteric angio w/ SMA stent initially but w/ concerns for anatomy of lesions and anemia trends and obligate plavix post stent. transfer to tertiary care declined -high risk surgery even endovascular but no other prospects for relief/symptom mgt -cardiology concerns re potential bleeding w/ single v dual anti plt therapy noted given past bleeding w/ AC for a fib (3) Diverticulitis of small bowel: Plan: Reason for Admission and clinically improving. has Sig symptoms and very very high WBC at 31K peak on 02/07; WBC downtrending but w/ ongoing abd pain, minimal po, and ongoing disruptive diarrhea. On flagyl and Ceftraixone. All abx Can be continued. (4) Atrial fibrillation with rapid ventricular response: Plan: s/p cardioversion; rate controlled now >>maintain mag of 2 and K of 4 >> no supplementation needed for mag 1.8, K 3.9 Admission and Anticipated Discharge Date Admission Date: February 07, 2024 Subjective seen on dialysis. Ongoing abdominal pain though it is a bit better. Denies dyspnea. Still extremely fatigued. Declined by tertiary center for vascular care Review of Systems 2 Review of Systems: All systems reviewed & are unremarkable except as noted in Subjective Physical Exam 2 Constitutional: well developed, + thin, + frail appearing and cooperative; no acute distress ENMT: Mouth: + dry oral mucous membranes Respiratory: normal respiratory effort Auscultation: + diminished lung sounds Cardiovascular: Rate/Rhythm: regular rate and regular rhythm Extremities: + AV fistula; no edema Musculoskeletal: Extremities: strength 5/5 throughout Skin: no rashes, warm and dry Results & Data Vital Signs (Past 12 Hours) Vital Signs Temp Pulse Pulse Resp BP BP Pulse Ox 02/17/24 07:39 36.7 C 68 17 120/50 L 91 02/17/24 04:09 36.9 C 60 16 117/69 91 02/17/24 00:00 59 L 02/16/24 22:50 37.0 C 64 16 118/50 L 90 O2 Del Method O2 Flow Rate 02/17/24 07:39 Nasal Cannula 3 02/17/24 04:09 Nasal Cannula 3 02/17/24 00:00 02/16/24 22:50 Nasal Cannula 3 Laboratory Results 02/17/24 06:39 02/17/24 06:39
[2024-02-17] MEDS: HEPARIN SOD (PORCINE) 1000 UNIT/ML IV ONE (11:47)
[2024-02-17] MEDS: HEPARIN SOD (PORCINE) 1000 UNIT/ML IV SCH (11:48)
[2024-02-17] MEDS: EPOETIN ALFA 20,000 UNITS/ML VIAL IV ONE (11:49)
[2024-02-17] MEDS: IRON SUCROSE 50 MG in SYRINGE 0 ML IV ONE (11:49)
--- NOTE | 2024-02-17 16:38 | Cardiology Progress Note ---
Date of Service February 17, 2024 Assessment & Plan (1) Paroxysmal atrial fibrillation: (2) ESRD (end stage renal disease) on dialysis: (3) Chronic respiratory failure with hypoxia: (4) Mesenteric ischemia: Plan 02/17/2024: In SR. Continue amiodarone 200 mg daily. Continue midodrine 2.5 mg TID. Cardiology to follow peripherally. Call with questions or concerns. Admission and Anticipated Discharge Date Admission Date: February 07, 2024 Subjective Patient feeling well at the time of my assessment. No chest discomfort or shortness of breath. Tolerated diet today, but notes decreased appetite. Telemetry reveals ongoing sinus rhythm with premature atrial contractions. Physical Exam 2 Physical Exam: General: Alert to person and place. No acute distress. Lethargic. Neck: No JVD -R IJ central line Heart: RRR. Systolic murmur. No rub. Lungs: Clear to auscultation anteriorly. Abdomen: +BS. Nontender. No organomegaly. Extremities: No clubbing, cyanosis, or edema. Limited neurological examination is without focal deficits. Results & Data Vital Signs (Past 12 Hours) Vital Signs Temp Pulse Pulse Resp BP BP Pulse Ox 02/17/24 13:27 118/87 02/17/24 12:34 36.7 C 58 L 118/87 02/17/24 12:00 56 L 112/43 L 02/17/24 11:30 57 L 112/49 L 02/17/24 11:00 59 L 110/50 L 02/17/24 10:30 60 119/48 L 02/17/24 10:00 55 L 114/51 L 02/17/24 09:30 58 L 123/49 L 02/17/24 09:13 56 L 110/46 L 02/17/24 09:05 37.2 C 60 02/17/24 08:00 58 L 02/17/24 08:00 02/17/24 07:39 36.7 C 68 17 120/50 L 91 O2 Del Method O2 Flow Rate 02/17/24 13:27 02/17/24 12:34 02/17/24 12:00 02/17/24 11:30 02/17/24 11:00 02/17/24 10:30 02/17/24 10:00 02/17/24 09:30 02/17/24 09:13 02/17/24 09:05 02/17/24 08:00 02/17/24 08:00 Nasal Cannula 3 02/17/24 07:39 Nasal Cannula 3
[2024-02-17] MEDS ORDERED: Nursing to Pharmacy Communication SCH (17:15)
[2024-02-18 07:04] LABS: Hematocrit (blood only) 26.8 % (37.0-47.0); Hemoglobin 8.6 g/dl (12.0-16.0); Mean Corpuscular Hemoglobin 36.4 pg (25.0-34.0); Mean Corpuscular Hgb Conc 32.1 g/dL (32.0-36.0); Mean Corpuscular Volume 113.6 fL (80.0-100.0); Platelet Count 75 K/uL (130-400); RDW Coefficient of Variation 19.2 % (11.5-14.5); RDW Standard Deviation 79.5 fL (36.4-46.3); Red Blood Count 2.36 M/uL (4.20-5.40); White Blood Count 7.24 K/ul (4.8-10.8)
[2024-02-18 07:28] LABS: BUN Creatinine Ratio 3.2 (10-20); Calcium 7.7 mg/dl (8.6-10.3); Magnesium 1.7 mg/dl (1.7-2.4); Phosphorus 2.8 mg/dl (2.5-4.9); Potassium 3.6 mmol/L (3.5-5.1)
--- NOTE | 2024-02-18 20:09 | Hospitalist Progress Note ---
Date of Service February 18, 2024 Assessment & Plan (1) Abdominal pain: (2) Diverticulitis of small bowel: (3) Enterocolitis: (4) ESRD (end stage renal disease) on dialysis: Plan Per previous hospitalist with addendum: This is a 78-year-old female who has a significant past medical history of chronic hypoxic respiratory failure on 3 L of O2, COPD, PAF off anticoagulation secondary to bleeding, mesenteric artery stenosis, HTN, mitral regurgitation, ESRD on HD, HLD, T2DM, secondary hyperparathyroidism, anemia and ESRD, hypogammaglobinemia and history of tobacco abuse who presents to ED secondary to abdominal pain. Recent admission 01/23 - 01/29 for near syncope. Seen and evaluated by cardiology. [place] possibly 2/2 labile HTN with HD, Lisinopril stopped and midodrine 3x weekly continued. She developed abd pain throughout stay and diarrhea. Stool biofire and for cdiff negative. Empirically started on oral vanco and discharged to [facility]. While at [facility] pt has been having worsening abd pain, n/v/d. Vanco increased to 250mg QID. She was borderline hypotensive and wbc climbing so sent to ED for eval. 02/12/2024: Case discussed multiple times during the day with general surgery and nephrology. General surgery requesting CTA of the abdomen pelvis given patient's persistent significant tenderness to palpation on exam. Concern for mesenteric ischemia given patient's complex medical history. Case further discussed with nephrology who advised can proceed with IV contrast for the needed CTA of the abdomen pelvis to rule out mesenteric ischemia. Later notified by nursing that patient was a "code purple" in the CT area. Patient was seen at that time by ER physician Dr. Parth Bliss who noted that she was hypotensive and in A-fib with RVR. Patient then became unresponsive and was then cardioverted at that time into sinus rhythm. she was transferred to the ICU and had a central and arterial line placed, concern for her requiring pressor support. Noted severe metabolic acidosis. She was awake and responsive to her name, eventually stating at one point that she would like to have a bowel movement. 02/13/2024- patient still ICU status. CTA abdomen pelvis noting "high grade stenosis noted at the origin of the superior and inferior mesenteric and renal arteries." Vascular surgery was consulted and recommends stenting. Patient discussing with daughter and son-in-law whether she wants to proceed with surgery. palliative care consult still pending. CT abdomen pelvis also noting improved colitis. Continue with antibiotics. Abdominal Pain Diverticulitis of the small bowel Possible persistent/recurrent c diff colitis Pt with significant leukocytosis WBC > 30K, now normalized CT noting concern for diverticulitis stool cultures negative Repeat C. difficile testing was initially not able to be obtained before treatment. Eventually obtained on 02/10 after abx treatments and was negative NPO--> transitioned to clears on 02/09/24, full liquids on 02/10/24 and low fiber diet on 02/11/24. per nursing, patient without much intake IV zosyn switched to IV Rocephin and IV Flagyl for treatment of diverticulitis, p.o. vancomycin 500mg every 6 hours also added for treatment of likely C. difficile colitis along with IV Flagyl probiotic daily consult general surg, appreciate recs -continue with full liquids as abd still sig tender to palpation -Continue abx regimen Infectious disease consulted, appreciate recs - treat with rocephin + flagyl, cont. for 10-14 days. Ok to stop vanco if c. diff negative, po vanco was discontinued continue to monitor Mesenteric ischemia Pt with SMA and IVANA stenosis on CTA abd/pelvis, also with exquisite tenderness to entire abd. Hx positive for post prandial pain as well as pain while eating which limits her intake, as well as some weight loss. Dr. Vale recommends pt undergo mesenteric angio with MANAGER TRACK/stenting of SMA. After further discussion, it was recommended that pt would be transferred to tertiary center for the procedure - [facility] [place] - discussed w/ vasc. surgery, gen. surgery, GI, hospitalist - pt was eventually not accepted for transfer and it was recommended that pt follows up with vasc. surgery as outpt 02/15 Abdominal pain is overall improving, WBC normalized, pt is attempting to eat 02/17 Improved oral intake, abd. pain improved/ resolved PAF Pt flipped from sinus rhythm to atrial fibrillation in the AM of 02/09 Per chart review appears that her amiodarone had not been given on 02/08/2024. However per chart review and discussion with nurses she did receive her dose on 02/08, 02/09 and 02/10 and 02/11 her heart rates are currently controlled continue amiodarone 200 mg daily, off oral anticoagulation due to bleeding Continue to monitor on telemetry, rate has been improving Cardiology consulted and following, appreciate their input ESRD on HD: typically T//Tue however while at [facility] is on MWF Nephrology following Sacral Wound Pt with stage II sacral ulcer Continue offloading as tolerated Wound consult Chronic hypoxic resp failure on 3.5L/COPD continue home inhalers Anemia of Chronic Disease hgb 11.4 on admission currently Hgb 8-9 monitor no s/sx of bleeding Chronic HFpEF, mod to severe MR volume status via HD Hx of T2DM last a1c in Mar was 5.9 5.9 on repeat this admission Thrombocytopenia Platelets have been downtrending Holding heparin for DVT prophylaxis Peripheral smear - The peripheral blood smear shows macrocytic appearing erythrocytes without significant anisopoikilocytosis. Polychromatophilic cells (a subset of reticulocytes) are noted but not markedly increased. I do not see significant numbers of schistocytes or spherocytes indicative of a hemolytic process. Leukocytes appear normal in number, relative distribution and morphology. Platelets are decreased in number and are unremarkable in appearance. I do not see any significant number of platelet clumps resulting in an artifactual thrombocytopenia.The associated CBC shows a HGB of 8.1 with high MCV and low platelets (69,000).The major findings are macrocytic anemia and thrombocytopenia. The macrocytic anemia appears to be long standing based on review of older CBC's.Besides megaloblastic anemias and MDS, macrocytosis may also be seen in association with certain medications (i.e. primarily chemotherapy drugs), alcohol usage, non-alcoholic liver disease and hypothyroidism (more commonly in elderly). Increased reticulocytes can also elevate the MCV due to their large size.Total bilirubin, B12 and folate are unremarkable. A recent TSH was normal. If clinically indicated then a reticulocyte count is suggested.No overt morphologic abnormalities, including changes of a myelodysplastic syndrome or hemolytic anemia, are seen though neither is excluded, in particular MDS given the long standing macrocytic anemia.Darinel Grossman M.D. Cont. to Follow up as outpt Diet: low fiber DVT ppx: SQ Heparin on hold in setting of thrombocytopenia Dispo: Plan to DC to [facility] Admission and Anticipated Discharge Date Admission Date: February 07, 2024 Subjective Patient seen in follow up Pt with ESRD on HD, w/ abdominal pain - diverticulitis - treated with cef + flagyl, abdominal pain improving and WBC normalized now Plan was for SMA stent w/ vasc. surgery - which was then cancelled and transfer to tertiary center attempted instead, pt was not accepted for transfer at this time Daughter Delphine updated at the bedside Currently pt is sitting up in bed in NAD No fever, chills, chest pain, or shortness of breath Eating better and abd. pain much improved/ resolved Review of Systems Review of Systems: All systems reviewed & are unremarkable except as noted in Subjective Physical Exam 2 Physical Exam: General: elderly slim F in NAD, on suppl. O2, on HD Neuro: AAOx3, moves extremities HEENT: NC/AT CV: rrr Resp: Breath sounds clear bilaterally, no increased effort of breathing Abdomen: Soft, +some tenderness to palpation but improved Lower back: stage II sacral ulcer in sacral area Extremities: no LE edema, moves extremities Results & Data Results & Data Vital Signs (Past 12 Hours) Vital Signs Temp Pulse Resp BP BP Pulse Ox O2 Del Method 02/18/24 16:15 36.8 C 59 L 14 132/65 94 Nasal Cannula 02/18/24 11:00 36.9 C 61 16 113/47 L 92 Nasal Cannula O2 Flow Rate 02/18/24 16:15 4 02/18/24 11:00 4 Laboratory Results 02/18/24 Range/Units 06:11 WBC 7.24 (4.8-10.8) K/ul RBC 2.36 L (4.20-5.40) M/uL Hgb 8.6 L (12.0-16.0) g/dl Hct 26.8 L (37.0-47.0) % MCV 113.6 H (80.0-100.0) fL MCH 36.4 H (25.0-34.0) pg MCHC 32.1 (32.0-36.0) g/dL RDW Std Deviation 79.5 H (36.4-46.3) fL RDW Coeff of Fior 19.2 H (11.5-14.5) % Plt Count 75 L (130-400) K/uL MPV 12.0 (9.4-12.4) fL Sodium 143 (136-145) mmol/L Potassium 3.6 (3.5-5.1) mmol/L Chloride 107 (98-107) mmol/L Carbon Dioxide 29 (21-32) mmol/L Anion Gap 7 (3-11) BUN 12 (6-23) mg/dl Creatinine 3.79 H D (0.6-1.2) mg/dl Est Cr Clr Drug Dosing 13.0 ml/min eGFR 11.80 BUN/Creatinine Ratio 3.2 L (10-20) Glucose 64 L (70-99(Fasting)) mg/dl Calcium 7.7 L (8.6-10.3) mg/dl Phosphorus 2.8 (2.5-4.9) mg/dl Magnesium 1.7 (1.7-2.4) mg/dl Medications Administered Current Inpatient Medications Acetaminophen (Acetaminophen 325 Mg Tab) 650 mg PO Q4H PRN PRN Reason: Mild Pain or Fever Stop: 03/08/24 16:11 Albuterol (Albut/Ipratrop 3mg/0.5mg Neb 3 Ml Vial) 3 ml INH QID PRN; Protocol PRN Reason: Shortness Of Breath Stop: 03/08/24 19:44 Amiodarone HCl (Amiodarone 200 Mg Tab) 200 mg PO DAILY MARY Stop: 03/09/24 08:59 Last Admin: 02/18/24 08:43 Dose: 200 mg Dextrose (Dextrose 50% 50 Ml Syringe) 25 - 50 ml IV UD PRN; Protocol PRN Reason: Hypoglycemia Protocol Stop: 03/16/24 07:00 Fluticasone Propionate (Fluticasone Propionate Na Spr 16 Gm Btl) 2 sprays NA HS MARY Stop: 03/08/24 20:59 Last Admin: 02/17/24 13:28 Dose: 2 sprays Fluticasone/Vilanterol (Fluticasone/Vilanterol 200/25mcg 14 Puffs/Inhaler) 1 puffs INH DAILY MARY Stop: 03/09/24 08:59 Last Admin: 02/18/24 08:44 Dose: 1 puffs Glucagon (Glucagon For Inj 1 Mg Vial) 1 mg SQ UD PRN; Protocol PRN Reason: Hypoglycemia Protocol Stop: 03/16/24 07:00 Glucose (Glucose 40% Gel 15 Gm Tube) 15 - 30 gm PO UD PRN; Protocol PRN Reason: Hypoglycemia Protocol Stop: 03/16/24 07:00 Glucose (Glucose 10 Tab/Tube) 4 - 8 tab PO UD PRN; Protocol PRN Reason: Hypoglycemia Protocol Stop: 12/20/24 07:00 Heparin Sodium (Porcine) (Heparin Sod 5,000 Unit/0.5 Ml Vial) 5,000 units SQ Q8 [facility] Stop: 03/08/24 21:59 Last Admin: 02/12/24 05:57 Dose: 5,000 units Hydromorphone HCl (Hydromorphone Inj 0.5 Mg/0.5 Ml Syr) 0.25 mg IV Q6H PRN PRN Reason: Severe Pain (Scale 7, 8, 9,10) Stop: 02/22/24 10:02 Promethazine HCl (Phenergan) 6.25 mg in 50.25 mls @ 201 mls/hr IV Q6H PRN PRN Reason: Nausea And Vomiting Stop: 03/08/24 19:44 Lactobacillus Acidophilus (Advanced Probiotic 625 Mg Capsule) 1,250 mg PO DAILY [facility] Stop: 03/09/24 08:59 Last Admin: 02/18/24 08:44 Dose: 1,250 mg Lidocaine (Lidocaine 4% Cream 15 Gm Tube) 1 appln EXT PRN PRN PRN Reason: Pain Stop: 03/14/24 15:33 Melatonin (Melatonin 3 Mg Tab) 6 mg PO HS PRN PRN Reason: Sleep Stop: 03/08/24 20:59 Last Admin: 02/08/24 22:11 Dose: 6 mg Midodrine (Midodrine Hcl 2.5 Mg Tab) 2.5 mg PO TID@0800,1200,1700 [facility] Stop: 03/15/24 07:59 Last Admin: 02/18/24 17:01 Dose: 2.5 mg Miscellaneous (Lanthanum*Order Awaiting Action) 1 each N/A QS [facility] Stop: 03/09/24 20:14 Last Admin: 02/18/24 15:49 Dose: Not Given Miscellaneous (Carbohydrates For Hypoglycemia ) 15 - 30 gm PO UD PRN PRN Reason: Hypoglycemia Protocol Stop: 03/16/24 07:00 Pantoprazole Sodium (Pantoprazole 40 Mg Tab) 40 mg PO QAM [facility] Stop: 03/15/24 08:59 Last Admin: 02/18/24 08:45 Dose: 40 mg Tramadol HCl (Tramadol Hcl 50 Mg Tablet) 25 mg PO Q4H PRN PRN Reason: Moderate Pain (Scale 4, 5, 6) Stop: 03/09/24 10:02 Last Admin: 02/12/24 08:00 Dose: 25 mg Valacyclovir HCl (Valacyclovir Hcl 500 Mg Tablet) 500 mg PO Q24H [facility] Stop: 03/09/24 15:59 Last Admin: 02/18/24 15:49 Dose: Not Given Vitamin B Complex/Folic Acid (Nephrocaps) 1 cap PO QAM [facility] Stop: 03/09/24 08:59 Last Admin: 02/18/24 08:45 Dose: 1 cap
[2024-02-18] MEDS: cefTRIAXone SODIUM 2,000 MG/50 ML BAG IV SCH (20:32)
[2024-02-18] MEDS: MAGNESIUM SULFATE / D5W 1 GM/100 ML BAG IV ONE (20:32)
[2024-02-18] MEDS: metroNIDAZOLE 500 MG/100 ML BAG IV SCH (20:32)
--- NOTE | 2024-02-19 11:10 | Hospitalist Progress Note ---
Date of Service February 19, 2024 Assessment & Plan (1) Abdominal pain: (2) Diverticulitis of small bowel: (3) Enterocolitis: (4) ESRD (end stage renal disease) on dialysis: Plan Per previous hospitalist with addendum: This is a 78-year-old female who has a significant past medical history of chronic hypoxic respiratory failure on 3 L of O2, COPD, PAF off anticoagulation secondary to bleeding, mesenteric artery stenosis, HTN, mitral regurgitation, ESRD on HD, HLD, T2DM, secondary hyperparathyroidism, anemia and ESRD, hypogammaglobinemia and history of tobacco abuse who presents to ED secondary to abdominal pain. Recent admission 01/23 - 01/29 for near syncope. Seen and evaluated by cardiology. [place] possibly 2/2 labile HTN with HD, Lisinopril stopped and midodrine 3x weekly continued. She developed abd pain throughout stay and diarrhea. Stool biofire and for cdiff negative. Empirically started on oral vanco and [facility]. [facility] pt has been having worsening abd pain, n/v/d. Vanco increased to 250mg QID. She was borderline hypotensive and wbc climbing so sent to ED for eval. 02/12/2024: Case discussed multiple times during the day with general surgery and nephrology. General surgery requesting CTA of the abdomen pelvis given patient's persistent significant tenderness to palpation on exam. Concern for mesenteric ischemia given patient's complex medical history. Case further discussed with nephrology who advised can proceed with IV contrast for the needed CTA of the abdomen pelvis to rule out mesenteric ischemia. Later notified by nursing that patient was a "code purple" in the CT area. Patient was seen at that time by ER physician Dr. Parth Bliss who noted that she was hypotensive and in A-fib with RVR. Patient then became unresponsive and was then cardioverted at that time into sinus rhythm. she was transferred to the ICU and had a central and arterial line placed, concern for her requiring pressor support. Noted severe metabolic acidosis. She was awake and responsive to her name, eventually stating at one point that she would like to have a bowel movement. 02/13/2024- patient still ICU status. CTA abdomen pelvis noting "high grade stenosis noted at the origin of the superior and inferior mesenteric and renal arteries." Vascular surgery was consulted and recommends stenting. Patient discussing with daughter and son-in-law whether she wants to proceed with surgery. palliative care consult still pending. CT abdomen pelvis also noting improved colitis. Continue with antibiotics. Abdominal Pain Diverticulitis of the small bowel Possible persistent/recurrent c diff colitis Pt with significant leukocytosis WBC > 30K, now normalized CT noting concern for diverticulitis stool cultures negative Repeat C. difficile testing was initially not able to be obtained before treatment. Eventually obtained on 02/10 after abx treatments and was negative NPO--> transitioned to clears on 02/09/24, full liquids on 02/10/24 and low fiber diet on 02/11/24. per nursing, patient without much intake IV zosyn switched to IV Rocephin and IV Flagyl for treatment of diverticulitis, p.o. vancomycin 500mg every 6 hours also added for treatment of likely C. difficile colitis along with IV Flagyl probiotic daily consult general surg, appreciate recs -continue with full liquids as abd still sig tender to palpation -Continue abx regimen Infectious disease consulted, appreciate recs - treat with rocephin + flagyl, cont. for 10-14 days. Ok to stop vanco if c. diff negative, po vanco was discontinued continue to monitor Mesenteric ischemia Pt with SMA and IVANA stenosis on CTA abd/pelvis, also with exquisite tenderness to entire abd. Hx positive for post prandial pain as well as pain while eating which limits her intake, as well as some weight loss. Dr. Vale recommends pt undergo mesenteric angio with [employer]/stenting of SMA. After further discussion, it was recommended that pt would be transferred to tertiary center for the procedure - [facility] [place] - discussed w/ vasc. surgery, gen. surgery, GI, hospitalist - pt was eventually not accepted for transfer and it was recommended that pt follows up with vasc. surgery as outpt 02/15 Abdominal pain is overall improving, WBC normalized, pt is attempting to eat 02/17 Improved oral intake, abd. pain improved/ resolved PAF Pt flipped from sinus rhythm to atrial fibrillation in the AM of 02/09 Per chart review appears that her amiodarone had not been given on 02/08/2024. However per chart review and discussion with nurses she did receive her dose on 02/08, 02/09 and 02/10 and 02/11 her heart rates are currently controlled continue amiodarone 200 mg daily, off oral anticoagulation due to bleeding Continue to monitor on telemetry, rate has been improving Cardiology consulted and following, appreciate their input ESRD on HD: typically T//Tue however [facility] is [facility] Nephrology following Sacral Wound Pt with stage II sacral ulcer Continue offloading as tolerated Wound consult Chronic hypoxic resp failure on 3.5L/COPD continue home inhalers Anemia of Chronic Disease hgb 11.4 on admission currently Hgb 8-9 monitor no s/sx of bleeding Chronic HFpEF, mod to severe MR volume status via HD Hx of T2DM last a1c in Mar was 5.9 5.9 on repeat this admission Thrombocytopenia Platelets have been downtrending Holding heparin for DVT prophylaxis Peripheral smear - The peripheral blood smear shows macrocytic appearing erythrocytes without significant anisopoikilocytosis. Polychromatophilic cells (a subset of reticulocytes) are noted but not markedly increased. I do not see significant numbers of schistocytes or spherocytes indicative of a hemolytic process. Leukocytes appear normal in number, relative distribution and morphology. Platelets are decreased in number and are unremarkable in appearance. I do not see any significant number of platelet clumps resulting in an artifactual thrombocytopenia.The associated CBC shows a HGB of 8.1 with high MCV and low platelets (69,000).The major findings are macrocytic anemia and thrombocytopenia. The macrocytic anemia appears to be long standing based on review of older CBC's.Besides megaloblastic anemias and MDS, macrocytosis may also be seen in association with certain medications (i.e. primarily chemotherapy drugs), alcohol usage, non-alcoholic liver disease and hypothyroidism (more commonly in elderly). Increased reticulocytes can also elevate the MCV due to their large size.Total bilirubin, B12 and folate are unremarkable. A recent TSH was normal. If clinically indicated then a reticulocyte count is suggested.No overt morphologic abnormalities, including changes of a myelodysplastic syndrome or hemolytic anemia, are seen though neither is excluded, in particular MDS given the long standing macrocytic anemia.Darinel Grossman M.D. Cont. to Follow up as outpt Diet: low fiber DVT ppx: SQ Heparin on hold in setting of thrombocytopenia Dispo: Plan to DC to [facility] Admission and Anticipated Discharge Date Admission Date: February 07, 2024 Subjective Patient seen in follow up Pt with ESRD on HD, w/ abdominal pain - diverticulitis - treated with cef + flagyl, abdominal pain improving and WBC normalized now Plan was for SMA stent w/ vasc. surgery - which was then cancelled and transfer to tertiary center attempted instead, pt was not accepted for transfer at this time Daughter Delphine updated at the bedside Currently pt is sitting up in bed in NAD No fever, chills, chest pain, or shortness of breath Eating overall little better and abd. pain much improved/ resolved except she has not had a BM today and so feels little unwell compared to yesterday Contacted CM about DC - no beds at [facility] today Review of Systems Review of Systems: All systems reviewed & are unremarkable except as noted in Subjective Physical Exam Physical Exam: General: elderly slim F in NAD, on suppl. O2, on HD Neuro: AAOx3, moves extremities HEENT: NC/AT CV: rrr Resp: Breath sounds clear bilaterally, no increased effort of breathing Abdomen: Soft, +some tenderness to palpation but overall much improved Lower back: stage II sacral ulcer in sacral area Extremities: no LE edema, moves extremities Results & Data Results & Data Vital Signs (Past 12 Hours) Vital Signs Temp Pulse Resp BP BP Pulse Ox O2 Del Method 02/19/24 10:31 36.9 C 58 L 14 116/78 92 Nasal Cannula 02/19/24 07:15 36.7 C 57 L 16 127/54 L 94 Nasal Cannula 02/19/24 04:25 36.6 C 56 L 16 122/53 L 90 Nasal Cannula 02/19/24 01:15 Nasal Cannula 02/19/24 00:37 36.7 C 53 L 16 122/52 L 94 Nasal Cannula O2 Flow Rate 02/19/24 10:31 3 02/19/24 07:15 4 02/19/24 04:25 4 02/19/24 01:15 3 02/19/24 00:37 4 Medications Administered Current Inpatient Medications Acetaminophen (Acetaminophen 325 Mg Tab) 650 mg PO Q4H PRN PRN Reason: Mild Pain or Fever Stop: 03/08/24 16:11 Albuterol (Albut/Ipratrop 3mg/0.5mg Neb 3 Ml Vial) 3 ml INH QID PRN; Protocol PRN Reason: Shortness Of Breath Stop: 03/08/24 19:44 Amiodarone HCl (Amiodarone 200 Mg Tab) 200 mg PO DAILY [facility] Stop: 03/09/24 08:59 Last Admin: 02/19/24 09:05 Dose: 200 mg Dextrose (Dextrose 50% 50 Ml Syringe) 25 - 50 ml IV UD PRN; Protocol PRN Reason: Hypoglycemia Protocol Stop: 03/16/24 07:00 Fluticasone Propionate (Fluticasone Propionate Na Spr 16 Gm Btl) 2 sprays NA HS MARY Stop: 03/08/24 20:59 Last Admin: 02/18/24 20:33 Dose: 2 sprays Fluticasone/Vilanterol (Fluticasone/Vilanterol 200/25mcg 14 Puffs/Inhaler) 1 puffs INH DAILY MARY Stop: 03/09/24 08:59 Last Admin: 02/19/24 09:06 Dose: 1 puffs Glucagon (Glucagon For Inj 1 Mg Vial) 1 mg SQ UD PRN; Protocol PRN Reason: Hypoglycemia Protocol Stop: 03/16/24 07:00 Glucose (Glucose 40% Gel 15 Gm Tube) 15 - 30 gm PO UD PRN; Protocol PRN Reason: Hypoglycemia Protocol Stop: 03/16/24 07:00 Glucose (Glucose 10 Tab/Tube) 4 - 8 tab PO UD PRN; Protocol PRN Reason: Hypoglycemia Protocol Stop: 03/16/24 07:00 Heparin Sodium (Porcine) (Heparin Sod 5,000 Unit/0.5 Ml Vial) 5,000 units SQ Q8 MARY Stop: 03/08/24 21:59 Last Admin: 02/12/24 05:57 Dose: 5,000 units Hydromorphone HCl (Hydromorphone Inj 0.5 Mg/0.5 Ml Syr) 0.25 mg IV Q6H PRN PRN Reason: Severe Pain (Scale 7, 8, 9,10) Stop: 02/22/24 10:02 Promethazine HCl (Phenergan) 6.25 mg in 50.25 mls @ 201 mls/hr IV Q6H PRN PRN Reason: Nausea And Vomiting Stop: 03/08/24 19:44 Ceftriaxone Sodium (Rocephin) 2,000 mg in 50 mls @ 100 mls/hr IV Q24H [facility] Stop: 02/28/24 20:29 Last Infusion: 02/18/24 21:12 Dose: Infused Metronidazole (Flagyl) 500 mg in 100 mls @ 100 mls/hr IV Q8H MARY; Protocol Stop: 02/28/24 20:29 Last Infusion: 02/19/24 04:54 Dose: Infused Lactobacillus Acidophilus (Advanced Probiotic 625 Mg Capsule) 1,250 mg PO DAILY [facility] Stop: 03/09/24 08:59 Last Admin: 02/19/24 09:05 Dose: 1,250 mg Lidocaine (Lidocaine 4% Cream 15 Gm Tube) 1 appln EXT PRN PRN PRN Reason: Pain Stop: 03/14/24 15:33 Melatonin (Melatonin 3 Mg Tab) 6 mg PO HS PRN PRN Reason: Sleep Stop: 03/08/24 20:59 Last Admin: 02/08/24 22:11 Dose: 6 mg Midodrine (Midodrine Hcl 2.5 Mg Tab) 2.5 mg PO TID@0800,1200,1700 [facility] Stop: 03/15/24 07:59 Last Admin: 02/19/24 09:04 Dose: 2.5 mg Miscellaneous (Lanthanum*Order Awaiting Action) 1 each N/A QS [facility] Stop: 03/09/24 20:14 Last Admin: 02/19/24 09:04 Dose: Not Given Miscellaneous (Carbohydrates For Hypoglycemia ) 15 - 30 gm PO UD PRN PRN Reason: Hypoglycemia Protocol Stop: 03/16/24 07:00 Pantoprazole Sodium (Pantoprazole 40 Mg Tab) 40 mg PO QAM [facility] Stop: 03/15/24 08:59 Last Admin: 02/19/24 09:05 Dose: 40 mg Tramadol HCl (Tramadol Hcl 50 Mg Tablet) 25 mg PO Q4H PRN PRN Reason: Moderate Pain (Scale 4, 5, 6) Stop: 03/09/24 10:02 Last Admin: 02/12/24 08:00 Dose: 25 mg Valacyclovir HCl (Valacyclovir Hcl 500 Mg Tablet) 500 mg PO Q24H [facility] Stop: 03/09/24 15:59 Last Admin: 02/18/24 15:49 Dose: Not Given Vitamin B Complex/Folic Acid (Nephrocaps) 1 cap PO QAM [facility] Stop: 03/09/24 08:59 Last Admin: 02/19/24 09:05 Dose: 1 cap
[2024-02-20 07:26] LABS: Hematocrit (blood only) 26.9 % (37.0-47.0); Mean Corpuscular Hemoglobin 36.9 pg (25.0-34.0); Mean Corpuscular Hgb Conc 33.5 g/dL (32.0-36.0); Mean Corpuscular Volume 110.2 fL (80.0-100.0); Mean Platelet Volume 11.7 fL (9.4-12.4); Platelet Count 100 K/uL (130-400); RDW Coefficient of Variation 18.9 % (11.5-14.5); RDW Standard Deviation 77.6 fL (36.4-46.3); Red Blood Count 2.44 M/uL (4.20-5.40); White Blood Count 7.05 K/ul (4.8-10.8)
[2024-02-20 07:45] LABS: BUN Creatinine Ratio 3.5 (10-20); Calcium 7.9 mg/dl (8.6-10.3); Creatinine Clr Calc Pharmacy 7.5 ml/min; Phosphorus 3.7 mg/dl (2.5-4.9); Potassium 3.6 mmol/L (3.5-5.1)
--- NOTE | 2024-02-20 08:27 | Palliative Family Discussion ---
Date of Service February 21, 2024 Patient Directed Conference Time of Meetin:00 Participants: NatalyaMelanie Rangel AGACNP Patient participation: YES Patient Support System: NO VISITORS PRESENT Other Healthcare Provider Participation: None Meeting Location: Pt's room Advanced Directive available: No If yes, descriptors: Paperwork supplied, family to review The patient's surrogate medical decision maker participated: no visitors present Legally authorized health care proxy: Pt is and has only one adult child. In absence of LW/AD documenting pt's chosen proxy, per [place] [id number], the pt's legal proxy for health care decisions would be her daughter. Other surrogate: n/a A family meeting was held for VALERIA URIAS. This meeting was necessary for determining the appropriate course of treatment. Medical management per primary team. Topics of Discussion Topics of Discussion: 1. goals of care 2. importance of LW/AD 3. POLST Other Content of Meetin. Opportunity given for patient to speak and ask questions. 2. Reassurance provided. 4. Support was provided for informed, good-tolu decisions. 5. Emotions expressed by patient were acknowledged and addressed. 6. Follow-up Outpatient: 7. Plan of Care:plan for pt discharge to rehab in upcoming days Summary of discussion with patient at bedside: Met with patient and discussed plan for ongoing care. Pt shared that she has had intermittent abd pain and nausea "for a while" and that it had gotten better for last several days, but this morning she is again nauseas. She shared that her pain recurs/worsens with vomitus. She had not required any PRNs for pain since 02/13. Pt shared understanding that she was evaluated for surgery and was to be transferred to [place], but "they said I wasn't sick enough". she shared concern that her dis charge may be delayed. She looks forward to returning to her SNF and shared that she "isn't bothered" by being dependent on HD. Pt again reinforced her wishes for DNR/DNI but would like to continue all other life prolonging therapies. We again discussed LW/AD and she shared that she thinks her daughter has the form at home. She also shaared that there is a POLST form on her refrigerator documenting wishes for DNR/DNI. Discussed this with attending Dr. Ortega, who shared that she may delay discharge until nausea is better controlled. Pt's goals are clearly established for continuing life prolonging therapies. Palliative care will continue to follow loosely for potential navigation of GOC. Please call [phone] for additional palliative care needs. Time Involved in Meeting: I spent 50 minutes overall addressing this case: 10 in medical data review/discussion with referring provider(s) and/or preparation for the visit 30 in direct interaction with the patient 20 Advance Care Planning/Goals of Care discussions as detailed above in note (must be >16min) 10 in subsequent review and synthesis of assessment and plan
--- NOTE | 2024-02-20 11:18 | Dialysis Progress Note ---
Date of Service February 20, 2024 Assessment & Plan Admission and Anticipated Discharge Date Admission Date: February 07, 2024 Subjective Assessment & Plan (1) ESRD on hemodialysis: Plan: Long standing ESRD patient with Anuria. has a good Left UE AVF for access; no issues continues to be vol depleted from Acute GI issues/chronic diarrhea and poor Appetite. fluid restriction not indicated; dialysis diet not indicated at this time as K is low and barely eating anyway. Change Dialysate to 3 k bath continue to hold renvela and encourage po when no longer NPO; would not worry about phos binders currently next HD 02/21 > Give heparin bolus only given thrombocytopenia which is new but now PLT rising again to 100K today continue low dose standing midodrine; else would not intervene specifically for hypotension (2) Mesenteric ischemia: Plan: vascular suggests mesenteric angio w/ SMA stent initially but w/ concerns for anatomy of lesions and anemia trends and obligate plavix post stent. transfer to tertiary care declined high risk surgery even endovascular but no other prospects for relief/symptom mgt cardiology concerns re potential bleeding w/ single v dual anti plt therapy noted given past bleeding w/ AC for a fib (3) Diverticulitis of small bowel: Plan: Reason for Admission and clinically improving. has Sig symptoms and very very high WBC at 31K peak on 02/07; WBC downtrending but w/ ongoing abd pain, minimal po, and ongoing disruptive diarrhea. On flagyl and Ceftraixone. All abx Can be continued. (4) Atrial fibrillation with rapid ventricular response: Plan: s/p cardioversion; rate controlled now maintain mag of 2 and K of 4 . NO supplementation needed for mag and K today Subjective seen on dialysis. Ongoing abdominal pain though it is a bit better. Also Appetite is poor. Denies dyspnea. Still extremely fatigued. Declined by [facility] for vascular care Review of Systems Review of Systems: All systems reviewed & are unremarkable except as noted in Subjective Physical Exam Constitutional: well developed, + thin, + frail appearing and cooperative; no acute distress ENMT: Mouth: + dry oral mucous membranes Respiratory: normal respiratory effort Auscultation: + diminished lung sounds Cardiovascular: Rate/Rhythm: regular rate and regular rhythm Extremities: + AV fistula; no edema Musculoskeletal: Extremities: strength 5/5 throughout Skin: no rashes, warm and dry Results & Data Vital Signs (Past 12 Hours) Vital Signs Temp Pulse Pulse Pulse Resp BP BP 11/25/24 10:30 51 L 125/46 L 02/20/24 10:00 50 L 116/51 L 02/20/24 09:30 51 L 133/48 L 02/20/24 09:09 51 L 126/47 L 02/20/24 08:59 36.3 C L 54 L 02/20/24 08:04 50 L 16 124/50 L 02/20/24 03:32 36.8 C 56 L 18 123/58 L 02/20/24 00:04 36.6 C 56 L 16 117/52 L Pulse Ox O2 Del Method O2 Flow Rate 02/20/24 10:30 02/20/24 10:00 02/20/24 09:30 02/20/24 09:09 02/20/24 08:59 02/20/24 08:04 97 Nasal Cannula 3 02/20/24 03:32 96 Room Air 02/20/24 00:04 98 Nasal Cannula 3
[2024-02-21] MEDS: PROMETHAZINE 6.25 MG/50.25 ML BAG IV PRN (06:06)
--- NOTE | 2024-02-21 08:51 | Hospitalist Progress Note ---
Date of Service February 20, 2024 Assessment & Plan (1) Abdominal pain: (2) Diverticulitis of small bowel: (3) Enterocolitis: (4) ESRD (end stage renal disease) on dialysis: Plan Per previous hospitalist with addendum: This is a 78-year-old female who has a significant past medical history of chronic hypoxic respiratory failure on 3 L of O2, COPD, PAF off anticoagulation secondary to bleeding, mesenteric artery stenosis, HTN, mitral regurgitation, ESRD on HD, HLD, T2DM, secondary hyperparathyroidism, anemia and ESRD, hypogammaglobinemia and history of tobacco abuse who presents to ED secondary to abdominal pain. Recent admission 01/23 - 01/29 for near syncope. Seen and evaluated by cardiology. [place] possibly 2/2 labile HTN with HD, Lisinopril stopped and midodrine 3x weekly continued. She developed abd pain throughout stay and diarrhea. Stool biofire and for cdiff negative. Empirically started on oral vanco and discharged to [facility]. While at [facility] pt has been having worsening abd pain, n/v/d. Vanco increased to 250mg QID. She was borderline hypotensive and wbc climbing so sent to ED for eval. 02/12/2024: Case discussed multiple times during the day with general surgery and nephrology. General surgery requesting CTA of the abdomen pelvis given patient's persistent significant tenderness to palpation on exam. Concern for mesenteric ischemia given patient's complex medical history. Case further discussed with nephrology who advised can proceed with IV contrast for the needed CTA of the abdomen pelvis to rule out mesenteric ischemia. Later notified by nursing that patient was a "code purple" in the CT area. Patient was seen at that time by ER physician Dr. Parth Bliss who noted that she was hypotensive and in A-fib with RVR. Patient then became unresponsive and was then cardioverted at that time into sinus rhythm. she was transferred to the ICU and had a central and arterial line placed, concern for her requiring pressor support. Noted severe metabolic acidosis. She was awake and responsive to her name, eventually stating at one point that she would like to have a bowel movement. 02/13/2024- patient still ICU status. CTA abdomen pelvis noting "high grade stenosis noted at the origin of the superior and inferior mesenteric and renal arteries." Vascular surgery was consulted and recommends stenting. Patient discussing with daughter and son-in-law whether she wants to proceed with surgery. palliative care consult still pending. CT abdomen pelvis also noting improved colitis. Continue with antibiotics. Abdominal Pain Diverticulitis of the small bowel Possible persistent/recurrent c diff colitis Pt with significant leukocytosis WBC > 30K, now normalized CT noting concern for diverticulitis stool cultures negative Repeat C. difficile testing was initially not able to be obtained before treatment. Eventually obtained on 02/10 after abx treatments and was negative NPO--> transitioned to clears on 02/09/24, full liquids on 02/10/24 and low fiber diet on 02/11/24. per nursing, patient without much intake IV zosyn switched to IV Rocephin and IV Flagyl for treatment of diverticulitis, p.o. vancomycin 500mg every 6 hours also added for treatment of likely C. difficile colitis along with IV Flagyl probiotic daily consult general surg, appreciate recs -continue with full liquids as abd still sig tender to palpation -Continue abx regimen Infectious disease consulted, appreciate recs - treat with rocephin + flagyl, cont. for 10-14 days. Ok to stop vanco if c. diff negative, po vanco was discontinued continue to monitor Mesenteric ischemia Pt with SMA and IVANA stenosis on CTA abd/pelvis, also with exquisite tenderness to entire abd. Hx positive for post prandial pain as well as pain while eating which limits her intake, as well as some weight loss. Dr. Vale recommends pt undergo mesenteric angio with BREAKER UP/stenting of SMA. After further discussion, it was recommended that pt would be transferred to tertiary center for the procedure - [facility] contacted - discussed w/ vasc. surgery, gen. surgery, GI, hospitalist - pt was eventually not accepted for transfer and it was recommended that pt follows up with vasc. surgery as outpt 02/15 Abdominal pain is overall improving, WBC normalized, pt is attempting to eat 02/17 Improved oral intake, abd. pain improved/ resolved PAF Pt flipped from sinus rhythm to atrial fibrillation in the AM of 02/09 Per chart review appears that her amiodarone had not been given on 02/08/2024. However per chart review and discussion with nurses she did receive her dose on 02/08, 02/09 and 02/10 and 02/11 her heart rates are currently controlled continue amiodarone 200 mg daily, off oral anticoagulation due to bleeding Continue to monitor on telemetry, rate has been improving Cardiology consulted and following, appreciate their input ESRD on HD: typically T//Tue however while at [facility] is on MWF Nephrology following Sacral Wound Pt with stage II sacral ulcer Continue offloading as tolerated Wound consult Chronic hypoxic resp failure on 3.5L/COPD continue home inhalers Anemia of Chronic Disease hgb 11.4 on admission currently Hgb 8-9 monitor no s/sx of bleeding Chronic HFpEF, mod to severe MR volume status via HD Hx of T2DM last a1c in Mar was 5.9 5.9 on repeat this admission Thrombocytopenia Platelets have been downtrending Holding heparin for DVT prophylaxis Peripheral smear - The peripheral blood smear shows macrocytic appearing erythrocytes without significant anisopoikilocytosis. Polychromatophilic cells (a subset of reticulocytes) are noted but not markedly increased. I do not see significant numbers of schistocytes or spherocytes indicative of a hemolytic process. Leukocytes appear normal in number, relative distribution and morphology. Platelets are decreased in number and are unremarkable in appearance. I do not see any significant number of platelet clumps resulting in an artifactual thrombocytopenia.The associated CBC shows a HGB of 8.1 with high MCV and low platelets (69,000).The major findings are macrocytic anemia and thrombocytopenia. The macrocytic anemia appears to be long standing based on review of older CBC's.Besides megaloblastic anemias and MDS, macrocytosis may also be seen in association with certain medications (i.e. primarily chemotherapy drugs), alcohol usage, non-alcoholic liver disease and hypothyroidism (more commonly in elderly). Increased reticulocytes can also elevate the MCV due to their large size.Total bilirubin, B12 and folate are unremarkable. A recent TSH was normal. If clinically indicated then a reticulocyte count is suggested.No overt morphologic abnormalities, including changes of a myelodysplastic syndrome or hemolytic anemia, are seen though neither is excluded, in particular MDS given the long standing macrocytic anemia.Darinel Grossman M.D. Cont. to Follow up as outpt Diet: low fiber DVT ppx: SQ Heparin on hold in setting of thrombocytopenia Dispo: Plan to DC to [facility] Admission and Anticipated Discharge Date Admission Date: February 07, 2024 Subjective Patient seen in follow up Pt with ESRD on HD, w/ abdominal pain - diverticulitis - treated with cef + flagyl, abdominal pain improving and WBC normalized now Plan was for SMA stent w/ vasc. surgery - which was then cancelled and transfer to tertiary center attempted instead, pt was not accepted for transfer at this time Currently pt is sitting up in bed in NAD -> plan to go to HD now No fever, chills, chest pain, or shortness of breath Eating overall little better and abd. pain much improved Left message for [facility] physician - plan to Dc to [facility] Review of Systems Review of Systems: All systems reviewed & are unremarkable except as noted in Subjective Physical Exam Physical Exam: General: elderly slim F in NAD, on suppl. O2 Neuro: AAOx3, moves extremities HEENT: NC/AT CV: rrr Resp: Breath sounds clear bilaterally, no increased effort of breathing Abdomen: Soft, +some tenderness to palpation but overall much improved Lower back: stage II sacral ulcer in sacral area Extremities: no LE edema, moves extremities Results & Data Results & Data Vital Signs (Past 12 Hours) Vital Signs Temp Pulse Pulse Pulse Resp BP Pulse Ox 02/20/24 23:44 36.7 C 59 L 18 130/62 94 02/20/24 22:30 02/20/24 21:44 64 O2 Del Method O2 Flow Rate 02/20/24 23:44 Nasal Cannula 3.5 02/20/24 22:30 Nasal Cannula 3 02/20/24 21:44 Medications Administered Current Inpatient Medications Acetaminophen (Acetaminophen 325 Mg Tab) 650 mg PO Q4H PRN PRN Reason: Mild Pain or Fever Stop: 03/08/24 16:11 Albuterol (Albut/Ipratrop 3mg/0.5mg Neb 3 Ml Vial) 3 ml INH QID PRN; Protocol PRN Reason: Shortness Of Breath Stop: 03/08/24 19:44 Amiodarone HCl (Amiodarone 200 Mg Tab) 200 mg PO DAILY MARY Stop: 03/09/24 08:59 Last Admin: 02/20/24 08:10 Dose: 200 mg Dextrose (Dextrose 50% 50 Ml Syringe) 25 - 50 ml IV UD PRN; Protocol PRN Reason: Hypoglycemia Protocol Stop: 03/16/24 07:00 Fluticasone Propionate (Fluticasone Propionate Na Spr 16 Gm Btl) 2 sprays NA HS MARY Stop: 03/08/24 20:59 Last Admin: 02/20/24 20:12 Dose: 2 sprays Fluticasone/Vilanterol (Fluticasone/Vilanterol 200/25mcg 14 Puffs/Inhaler) 1 puffs INH DAILY MARY Stop: 03/09/24 08:59 Last Admin: 02/20/24 08:10 Dose: 1 puffs Glucagon (Glucagon For Inj 1 Mg Vial) 1 mg SQ UD PRN; Protocol PRN Reason: Hypoglycemia Protocol Stop: 03/16/24 07:00 Glucose (Glucose 40% Gel 15 Gm Tube) 15 - 30 gm PO UD PRN; Protocol PRN Reason: Hypoglycemia Protocol Stop: 03/16/24 07:00 Glucose (Glucose 10 Tab/Tube) 4 - 8 tab PO UD PRN; Protocol PRN Reason: Hypoglycemia Protocol Stop: 03/16/24 07:00 Heparin Sodium (Porcine) (Heparin Sod 5,000 Unit/0.5 Ml Vial) 5,000 units SQ Q8 MARY Stop: 03/08/24 21:59 Last Admin: 02/12/24 05:57 Dose: 5,000 units Hydromorphone HCl (Hydromorphone Inj 0.5 Mg/0.5 Ml Syr) 0.25 mg IV Q6H PRN PRN Reason: Severe Pain (Scale 7, 8, 9,10) Stop: 02/22/24 10:02 Promethazine HCl (Phenergan) 6.25 mg in 50.25 mls @ 201 mls/hr IV Q6H PRN PRN Reason: Nausea And Vomiting Stop: 03/08/24 19:44 Last Infusion: 02/21/24 06:21 Dose: Infused Ceftriaxone Sodium (Rocephin) 2,000 mg in 50 mls @ 100 mls/hr IV Q24H [facility] Stop: 02/28/24 20:29 Last Infusion: 02/20/24 21:38 Dose: Infused Metronidazole (Flagyl) 500 mg in 100 mls @ 100 mls/hr IV Q8H [facility]; Protocol Stop: 02/28/24 20:29 Last Infusion: 02/21/24 04:36 Dose: Infused Lactobacillus Acidophilus (Advanced Probiotic 625 Mg Capsule) 1,250 mg PO DAILY [facility] Stop: 03/09/24 08:59 Last Admin: 02/20/24 08:09 Dose: 1,250 mg Lidocaine (Lidocaine 4% Cream 15 Gm Tube) 1 appln EXT PRN PRN PRN Reason: Pain Stop: 03/14/24 15:33 Melatonin (Melatonin 3 Mg Tab) 6 mg PO HS PRN PRN Reason: Sleep Stop: 03/08/24 20:59 Last Admin: 02/08/24 22:11 Dose: 6 mg Midodrine (Midodrine Hcl 2.5 Mg Tab) 2.5 mg PO TID@0800,1200,1700 [facility] Stop: 03/15/24 07:59 Last Admin: 02/20/24 16:39 Dose: 2.5 mg Miscellaneous (Lanthanum*Order Awaiting Action) 1 each N/A QS [facility] Stop: 03/09/24 20:14 Last Admin: 02/20/24 23:02 Dose: Not Given Miscellaneous (Carbohydrates For Hypoglycemia ) 15 - 30 gm PO UD PRN PRN Reason: Hypoglycemia Protocol Stop: 03/16/24 07:00 Pantoprazole Sodium (Pantoprazole 40 Mg Tab) 40 mg PO QAM [facility] Stop: 03/15/24 08:59 Last Admin: 02/20/24 08:10 Dose: 40 mg Tramadol HCl (Tramadol Hcl 50 Mg Tablet) 25 mg PO Q4H PRN PRN Reason: Moderate Pain (Scale 4, 5, 6) Stop: 03/09/24 10:02 Last Admin: 02/12/24 08:00 Dose: 25 mg Valacyclovir HCl (Valacyclovir Hcl 500 Mg Tablet) 500 mg PO Q24H [facility] Stop: 03/09/24 15:59 Last Admin: 02/20/24 16:39 Dose: 500 mg Vitamin B Complex/Folic Acid (Nephrocaps) 1 cap PO QAM [facility] Stop: 03/09/24 08:59 Last Admin: 02/20/24 08:09 Dose: 1 cap
[2024-02-21] MEDS: FAMOTIDINE 20MG IV PUSH 20 MG/5 ML SYR IV STA (10:02)
[2024-02-21] MEDS: PANTOprazole 40 MG/10 ML SYR IV ONE (10:03)
--- NOTE | 2024-02-21 11:28 | Hospitalist Progress Note ---
Date of Service February 21, 2024 Assessment & Plan (1) Abdominal pain: (2) Diverticulitis of small bowel: (3) Enterocolitis: (4) ESRD (end stage renal disease) on dialysis: Plan Per previous hospitalist with addendum: This is a 78-year-old female who has a significant past medical history of chronic hypoxic respiratory failure on 3 L of O2, COPD, PAF off anticoagulation secondary to bleeding, mesenteric artery stenosis, HTN, mitral regurgitation, ESRD on HD, HLD, T2DM, secondary hyperparathyroidism, anemia and ESRD, hypogammaglobinemia and history of tobacco abuse who presents to ED secondary to abdominal pain. Recent admission 01/23 - 01/29 for near syncope. Seen and evaluated by cardiology. [place] possibly 2/2 labile HTN with HD, Lisinopril stopped and midodrine 3x weekly continued. She developed abd pain throughout stay and diarrhea. Stool biofire and for cdiff negative. Empirically started on oral vanco and discharged to [facility]. While at [facility] pt has been having worsening abd pain, n/v/d. Vanco increased to 250mg QID. She was borderline hypotensive and wbc climbing so sent to ED for eval. 02/12/2024: Case discussed multiple times during the day with general surgery and nephrology. General surgery requesting CTA of the abdomen pelvis given patient's persistent significant tenderness to palpation on exam. Concern for mesenteric ischemia given patient's complex medical history. Case further discussed with nephrology who advised can proceed with IV contrast for the needed CTA of the abdomen pelvis to rule out mesenteric ischemia. Later notified by nursing that patient was a "code purple" in the CT area. Patient was seen at that time by ER physician Dr. Parth Bliss who noted that she was hypotensive and in A-fib with RVR. Patient then became unresponsive and was then cardioverted at that time into sinus rhythm. she was transferred to the ICU and had a central and arterial line placed, concern for her requiring pressor support. Noted severe metabolic acidosis. She was awake and responsive to her name, eventually stating at one point that she would like to have a bowel movement. 02/13/2024- patient still ICU status. CTA abdomen pelvis noting "high grade stenosis noted at the origin of the superior and inferior mesenteric and renal arteries." Vascular surgery was consulted and recommends stenting. Patient discussing with daughter and son-in-law whether she wants to proceed with surgery. palliative care consult still pending. CT abdomen pelvis also noting improved colitis. Continue with antibiotics. Abdominal Pain Diverticulitis of the small bowel Possible persistent/recurrent c diff colitis Pt with significant leukocytosis WBC > 30K, now normalized CT noting concern for diverticulitis stool cultures negative Repeat C. difficile testing was initially not able to be obtained before treatment. Eventually obtained on 02/10 after abx treatments and was negative NPO--> transitioned to clears on 02/09/24, full liquids on 02/10/24 and low fiber diet on 02/11/24. per nursing, patient without much intake IV zosyn switched to IV Rocephin and IV Flagyl for treatment of diverticulitis, p.o. vancomycin 500mg every 6 hours also added for treatment of likely C. difficile colitis along with IV Flagyl probiotic daily consult general surg, appreciate recs -continue with full liquids as abd still sig tender to palpation -Continue abx regimen Infectious disease consulted, appreciate recs - treat with rocephin + flagyl, cont. for 10-14 days. Ok to stop vanco if c. diff negative, po vanco was discontinued continue to monitor Mesenteric ischemia Pt with SMA and IVANA stenosis on CTA abd/pelvis, also with exquisite tenderness to entire abd. Hx positive for post prandial pain as well as pain while eating which limits her intake, as well as some weight loss. Dr. Vale recommends pt undergo mesenteric angio with [employer]/stenting of SMA. After further discussion, it was recommended that pt would be transferred to tertiary center for the procedure - [facility] [place] contacted - discussed w/ vasc. surgery, gen. surgery, GI, hospitalist - pt was eventually not accepted for transfer and it was recommended that pt follows up with vasc. surgery as outpt 02/15 Abdominal pain is overall improving, WBC normalized, pt is attempting to eat 02/16- Improved oral intake, abd. pain improved/ resolved 02/20 - Pt reports nausea since last night on and off. also reports abd. pain, but LLQ pain has improved. Will cont. to monitor, check blood work including lactate. Slow down on PO intake again. Also discussed w/ palliative to cont. to be involved. PAF Pt flipped from sinus rhythm to atrial fibrillation in the AM of 02/09 Per chart review appears that her amiodarone had not been given on 02/08/2024. However per chart review and discussion with nurses she did receive her dose on 02/08, 02/09 and 02/10 and 02/11 her heart rates are currently controlled continue amiodarone 200 mg daily, off oral anticoagulation due to bleeding Continue to monitor on telemetry, rate has been improving Cardiology consulted and following, appreciate their input ESRD on HD: typically T//Tue however while at [facility] is on MWF Nephrology following Sacral Wound Pt with stage II sacral ulcer Continue offloading as tolerated Wound consult Chronic hypoxic resp failure on 3.5L/COPD continue home inhalers Anemia of Chronic Disease hgb 11.4 on admission currently Hgb 8-9 monitor no s/sx of bleeding Chronic HFpEF, mod to severe MR volume status via HD Hx of T2DM last a1c in Mar was 5.9 5.9 on repeat this admission Thrombocytopenia Platelets have been downtrending Holding heparin for DVT prophylaxis Peripheral smear - The peripheral blood smear shows macrocytic appearing erythrocytes without significant anisopoikilocytosis. Polychromatophilic cells (a subset of reticulocytes) are noted but not markedly increased. I do not see significant numbers of schistocytes or spherocytes indicative of a hemolytic process. Leukocytes appear normal in number, relative distribution and morphology. Platelets are decreased in number and are unremarkable in appearance. I do not see any significant number of platelet clumps resulting in an artifactual thrombocytopenia.The associated CBC shows a HGB of 8.1 with high MCV and low platelets (69,000).The major findings are macrocytic anemia and thrombocytopenia. The macrocytic anemia appears to be long standing based on review of older CBC's.Besides megaloblastic anemias and MDS, macrocytosis may also be seen in association with certain medications (i.e. primarily chemotherapy drugs), alcohol usage, non-alcoholic liver disease and hypothyroidism (more commonly in elderly). Increased reticulocytes can also elevate the MCV due to their large size.Total bilirubin, B12 and folate are unremarkable. A recent TSH was normal. If clinically indicated then a reticulocyte count is suggested.No overt morphologic abnormalities, including changes of a myelodysplastic syndrome or hemolytic anemia, are seen though neither is excluded, in particular MDS given the long standing macrocytic anemia.Darinel Grossman M.D. Plt count improved - currently 100K (02/21/24) Cont. to Follow up as outpt Diet: low fiber DVT ppx: SQ Heparin on hold in setting of thrombocytopenia Dispo: Plan to DC to [facility] Admission and Anticipated Discharge Date Admission Date: February 07, 2024 Subjective Patient seen in follow up Pt with ESRD on HD, w/ abdominal pain - diverticulitis - treated with cef + flagyl, abdominal pain has been improving and WBC normalized -> however now, w/ nausea and abd. pain again Plan was for SMA stent w/ vasc. surgery - which was then cancelled and transfer to tertiary center attempted instead, pt was not accepted for transfer at this time Currently pt is laying in bed in NAD -> but reports having nausea on and off since last night No fever, chills, chest pain, or shortness of breath She has been eating overall little better - will now slow down on PO intake and cont. to closely monitor Left message for [facility] physician yesterday as felt pt was ready for DC - today discussed with CM - will cont. to monitor for now Review of Systems Review of Systems: All systems reviewed & are unremarkable except as noted in Subjective Physical Exam Physical Exam: General: elderly slim F in NAD, on suppl. O2 Neuro: AAOx3, moves extremities HEENT: NC/AT CV: rrr Resp: Breath sounds clear bilaterally, no increased effort of breathing Abdomen: Soft, +some tenderness to palpation, LLQ pain improved though Lower back: stage II sacral ulcer in sacral area Extremities: no LE edema, moves extremities Results & Data Results & Data Vital Signs (Past 12 Hours) Vital Signs Temp Pulse Pulse Pulse Resp BP Pulse Ox 02/21/24 09:15 02/21/24 07:26 66 02/21/24 07:08 37.0 C 62 18 158/64 H 95 02/21/24 04:19 36.7 C 59 L 18 144/63 H 94 02/20/24 23:44 36.7 C 59 L 18 130/62 94 O2 Del Method O2 Flow Rate 02/21/24 09:15 Nasal Cannula 3 02/21/24 07:26 02/21/24 07:08 Nasal Cannula 3.5 02/21/24 04:19 Nasal Cannula 3.5 02/20/24 23:44 Nasal Cannula 3.5 Medications Administered Current Inpatient Medications Acetaminophen (Acetaminophen 325 Mg Tab) 650 mg PO Q4H PRN PRN Reason: Mild Pain or Fever Stop: 03/08/24 16:11 Albuterol (Albut/Ipratrop 3mg/0.5mg Neb 3 Ml Vial) 3 ml INH QID PRN; Protocol PRN Reason: Shortness Of Breath Stop: 03/08/24 19:44 Amiodarone HCl (Amiodarone 200 Mg Tab) 200 mg PO DAILY [facility] Stop: 03/09/24 08:59 Last Admin: 02/20/24 08:10 Dose: 200 mg Dextrose (Dextrose 50% 50 Ml Syringe) 25 - 50 ml IV UD PRN; Protocol PRN Reason: Hypoglycemia Protocol Stop: 03/16/24 07:00 Fluticasone Propionate (Fluticasone Propionate Na Spr 16 Gm Btl) 2 sprays NA HS [facility] Stop: 03/08/24 20:59 Last Admin: 02/20/24 20:12 Dose: 2 sprays Fluticasone/Vilanterol (Fluticasone/Vilanterol 200/25mcg 14 Puffs/Inhaler) 1 puffs INH DAILY [facility] Stop: 03/09/24 08:59 Last Admin: 02/20/24 08:10 Dose: 1 puffs Glucagon (Glucagon For Inj 1 Mg Vial) 1 mg SQ UD PRN; Protocol PRN Reason: Hypoglycemia Protocol Stop: 03/16/24 07:00 Glucose (Glucose 40% Gel 15 Gm Tube) 15 - 30 gm PO UD PRN; Protocol PRN Reason: Hypoglycemia Protocol Stop: 03/16/24 07:00 Glucose (Glucose 10 Tab/Tube) 4 - 8 tab PO UD PRN; Protocol PRN Reason: Hypoglycemia Protocol Stop: 03/16/24 07:00 Heparin Sodium (Porcine) (Heparin Sod 5,000 Unit/0.5 Ml Vial) 5,000 units SQ Q8 [facility] Stop: 03/08/24 21:59 Last Admin: 02/12/24 05:57 Dose: 5,000 units Hydromorphone HCl (Hydromorphone Inj 0.5 Mg/0.5 Ml Syr) 0.25 mg IV Q6H PRN PRN Reason: Severe Pain (Scale 7, 8, 9,10) Stop: 02/22/24 10:02 Promethazine HCl (Phenergan) 6.25 mg in 50.25 mls @ 201 mls/hr IV Q6H PRN PRN Reason: Nausea And Vomiting Stop: 03/08/24 19:44 Last Infusion: 02/21/24 06:21 Dose: Infused Ceftriaxone Sodium (Rocephin) 2,000 mg in 50 mls @ 100 mls/hr IV Q24H [facility] Stop: 02/28/24 20:29 Last Infusion: 02/20/24 21:38 Dose: Infused Metronidazole (Flagyl) 500 mg in 100 mls @ 100 mls/hr IV Q8H [facility]; Protocol Stop: 02/28/24 20:29 Last Infusion: 02/21/24 04:36 Dose: Infused Lactobacillus Acidophilus (Advanced Probiotic 625 Mg Capsule) 1,250 mg PO DAILY [facility] Stop: 03/09/24 08:59 Last Admin: 02/21/24 10:03 Dose: Not Given Lidocaine (Lidocaine 4% Cream 15 Gm Tube) 1 appln EXT PRN PRN PRN Reason: Pain Stop: 03/14/24 15:33 Melatonin (Melatonin 3 Mg Tab) 6 mg PO HS PRN PRN Reason: Sleep Stop: 03/08/24 20:59 Last Admin: 02/08/24 22:11 Dose: 6 mg Midodrine (Midodrine Hcl 2.5 Mg Tab) 2.5 mg PO TID@0800,1200,1700 [facility] Stop: 03/15/24 07:59 Last Admin: 02/21/24 09:42 Dose: Not Given Miscellaneous (Lanthanum*Order Awaiting Action) 1 each N/A QS [facility] Stop: 03/09/24 20:14 Last Admin: 02/21/24 09:42 Dose: Not Given Miscellaneous (Carbohydrates For Hypoglycemia ) 15 - 30 gm PO UD PRN PRN Reason: Hypoglycemia Protocol Stop: 03/16/24 07:00 Pantoprazole Sodium (Pantoprazole 40 Mg Tab) 40 mg PO QAM [facility] Stop: 03/15/24 08:59 Last Admin: 02/21/24 09:43 Dose: Not Given Tramadol HCl (Tramadol Hcl 50 Mg Tablet) 25 mg PO Q4H PRN PRN Reason: Moderate Pain (Scale 4, 5, 6) Stop: 03/09/24 10:02 Last Admin: 02/12/24 08:00 Dose: 25 mg Valacyclovir HCl (Valacyclovir Hcl 500 Mg Tablet) 500 mg PO Q24H [facility] Stop: 03/09/24 15:59 Last Admin: 02/20/24 16:39 Dose: 500 mg Vitamin B Complex/Folic Acid (Nephrocaps) 1 cap PO QAM [facility] Stop: 03/09/24 08:59 Last Admin: 02/20/24 08:09 Dose: 1 cap
[2024-02-21 12:10] LABS: Hematocrit (blood only) 29.2 % (37.0-47.0); Hemoglobin 9.4 g/dl (12.0-16.0); Mean Corpuscular Hemoglobin 35.9 pg (25.0-34.0); Mean Corpuscular Hgb Conc 32.2 g/dL (32.0-36.0); Mean Corpuscular Volume 111.5 fL (80.0-100.0); Mean Platelet Volume 11.8 fL (9.4-12.4); Platelet Count 97 K/uL (130-400); RDW Coefficient of Variation 19.4 % (11.5-14.5); RDW Standard Deviation 80.8 fL (36.4-46.3); Red Blood Count 2.62 M/uL (4.20-5.40); White Blood Count 7.19 K/ul (4.8-10.8)
[2024-02-21 12:29] LABS: BUN Creatinine Ratio 2.8 (10-20); Calcium 7.7 mg/dl (8.6-10.3); Magnesium 1.8 mg/dl (1.7-2.4); Phosphorus 2.9 mg/dl (2.5-4.9); Potassium 3.6 mmol/L (3.5-5.1)
[2024-02-22 07:04] LABS: Hematocrit (blood only) 26.4 % (37.0-47.0); Hemoglobin 8.3 g/dl (12.0-16.0); Mean Corpuscular Hemoglobin 35.2 pg (25.0-34.0); Mean Corpuscular Hgb Conc 31.4 g/dL (32.0-36.0); Mean Corpuscular Volume 111.9 fL (80.0-100.0); Mean Platelet Volume 11.1 fL (9.4-12.4); Platelet Count 86 K/uL (130-400); RDW Coefficient of Variation 19.2 % (11.5-14.5); RDW Standard Deviation 78.3 fL (36.4-46.3); Red Blood Count 2.36 M/uL (4.20-5.40); White Blood Count 4.42 K/ul (4.8-10.8)
[2024-02-22 07:28] LABS: BUN Creatinine Ratio 3.3 (10-20); Calcium 7.6 mg/dl (8.6-10.3); Creatinine Clr Calc Pharmacy 8.7 ml/min; Magnesium 1.8 mg/dl (1.7-2.4); Phosphorus 4.1 mg/dl (2.5-4.9); Potassium 3.5 mmol/L (3.5-5.1)
--- NOTE | 2024-02-22 10:21 | Dialysis Progress Note ---
Date of Service February 22, 2024 Assessment & Plan Admission and Anticipated Discharge Date Admission Date: February 07, 2024 Subjective Assessment & Plan (1) ESRD on hemodialysis: Plan: Long standing ESRD patient with Anuria. has a good Left UE AVF for access; no issues continues to be vol depleted from Acute GI issues/chronic diarrhea and poor Appetite. fluid restriction not indicated; dialysis diet not indicated at this time as K is low and barely eating anyway. Dialysate to 3 k bath continue to hold renvela and encourage po. would not worry about phos binders currently [facility] Give heparin bolus only given thrombocytopenia which is new but now PLT rising again to 100K today continue low dose standing midodrine Make sure CVC is removed before discharge (2) Mesenteric ischemia: Plan: vascular suggests mesenteric angio w/ SMA stent initially but w/ concerns for anatomy of lesions and anemia trends and obligate plavix post stent. transfer to tertiary care declined high risk surgery even endovascular but no other prospects for relief/symptom mgt cardiology concerns re potential bleeding w/ single v dual anti plt therapy noted given past bleeding w/ AC for a fib (3) Diverticulitis of small bowel: Plan: Reason for Admission and clinically improving. has Sig symptoms and very very high WBC at 31K peak on 02/07; WBC downtrending but w/ ongoing abd pain, minimal po, and ongoing disruptive diarrhea. On flagyl and Ceftriaxone. All abx Can be continued. (4) Atrial fibrillation with rapid ventricular response: Plan: s/p cardioversion; rate controlled now maintain mag of 2 and K of 4 . NO supplementation needed for mag and K today Subjective seen on dialysis. Ongoing abdominal pain though it is a bit better. Also Appetite is poor. Denies dyspnea. Still extremely fatigued. Declined by tertiary center for vascular care. Has Central line in rt side. for Discharge to [facility] today Review of Systems Review of Systems: All systems reviewed & are unremarkable except as noted in Subjective Physical Exam Constitutional: well developed, + thin, + frail appearing and cooperative; no acute distress ENMT: Mouth: + dry oral mucous membranes Respiratory: normal respiratory effort Auscultation: + diminished lung sounds Cardiovascular: Rate/Rhythm: regular rate and regular rhythm Extremities: + AV fistula; no edema Musculoskeletal: Extremities: strength 5/5 throughout Skin: no rashes, warm and dry Results & Data Vital Signs (Past 12 Hours) Vital Signs Temp Pulse Pulse Resp BP BP BP 02/22/24 09:33 55 L 125/54 L 02/22/24 09:25 36.5 C 55 L 02/22/24 07:55 36.5 C 56 L 18 116/69 02/22/24 07:00 53 L 02/22/24 03:51 36.4 C L 53 L 18 127/55 L 02/21/24 22:37 36.3 C L 61 20 123/53 L Pulse Ox O2 Del Method O2 Flow Rate 02/22/24 09:33 02/22/24 09:25 02/22/24 07:55 98 Nasal Cannula 3 02/22/24 07:00 02/22/24 03:51 98 Nasal Cannula 02/21/24 22:37 100 Nasal Cannula
--- NOTE | 2024-02-22 14:07 | Hospitalist Progress Note ---
Date of Service February 22, 2024 Assessment & Plan (1) Abdominal pain: (2) Diverticulitis of small bowel: (3) Enterocolitis: (4) ESRD (end stage renal disease) on dialysis: Plan Per previous hospitalist with addendum: This is a 78-year-old female who has a significant past medical history of chronic hypoxic respiratory failure on 3 L of O2, COPD, PAF off anticoagulation secondary to bleeding, mesenteric artery stenosis, HTN, mitral regurgitation, ESRD on HD, HLD, T2DM, secondary hyperparathyroidism, anemia and ESRD, hypogammaglobinemia and history of tobacco abuse who presents to ED secondary to abdominal pain. Recent admission 01/23 - 01/29 for near syncope. Seen and evaluated by cardiology. [place] possibly 2/2 labile HTN with HD, Lisinopril stopped and midodrine 3x weekly continued. She developed abd pain throughout stay and diarrhea. Stool biofire and for cdiff negative. Empirically started on oral vanco and discharged to [facility]. While at [facility] pt has been having worsening abd pain, n/v/d. Vanco increased to 250mg QID. She was borderline hypotensive and wbc climbing so sent to ED for eval. 02/12/2024: Case discussed multiple times during the day with general surgery and nephrology. General surgery requesting CTA of the abdomen pelvis given patient's persistent significant tenderness to palpation on exam. Concern for mesenteric ischemia given patient's complex medical history. Case further discussed with nephrology who advised can proceed with IV contrast for the needed CTA of the abdomen pelvis to rule out mesenteric ischemia. Later notified by nursing that patient was a "code purple" in the CT area. Patient was seen at that time by ER physician Dr. Parth Bliss who noted that she was hypotensive and in A-fib with RVR. Patient then became unresponsive and was then cardioverted at that time into sinus rhythm. she was transferred to the ICU and had a central and arterial line placed, concern for her requiring pressor support. Noted severe metabolic acidosis. She was awake and responsive to her name, eventually stating at one point that she would like to have a bowel movement. 02/13/2024- patient still ICU status. CTA abdomen pelvis noting "high grade stenosis noted at the origin of the superior and inferior mesenteric and renal arteries." Vascular surgery was consulted and recommends stenting. Patient discussing with daughter and son-in-law whether she wants to proceed with surgery. palliative care consult still pending. CT abdomen pelvis also noting improved colitis. Continue with antibiotics. Abdominal Pain Diverticulitis of the small bowel Possible persistent/recurrent c diff colitis Pt with significant leukocytosis WBC > 30K, now normalized CT noting concern for diverticulitis stool cultures negative Repeat C. difficile testing was initially not able to be obtained before treatment. Eventually obtained on 02/10 after abx treatments and was negative NPO--> transitioned to clears on 02/09/24, full liquids on 02/10/24 and low fiber diet on 02/11/24. per nursing, patient without much intake IV zosyn switched to IV Rocephin and IV Flagyl for treatment of diverticulitis, p.o. vancomycin 500mg every 6 hours also added for treatment of likely C. difficile colitis along with IV Flagyl probiotic daily consult general surg, appreciate recs -continue with full liquids as abd still sig tender to palpation -Continue abx regimen Infectious disease consulted, appreciate recs - treat with rocephin + flagyl, cont. for 10-14 days. Ok to stop vanco if c. diff negative, po vanco was discontinued continue to monitor -- still has LLQ tenderness today, although no nausea, fever monitor for now Mesenteric ischemia Pt with SMA and IVANA stenosis on CTA abd/pelvis, also with exquisite tenderness to entire abd. Hx positive for post prandial pain as well as pain while eating which limits her intake, as well as some weight loss. Dr. Vale recommends pt undergo mesenteric angio with RETAIL DIRECTOR/stenting of SMA. After further discussion, it was recommended that pt would be transferred to tertiary [place] for [place] [facility] [place] discussed w/ vasc. surgery, gen. surgery, GI, hospitalist - pt was eventually not accepted for transfer and it was recommended that pt follows up with vasc. surgery as outpt 02/15 Abdominal pain is overall improving, WBC normalized, pt is attempting to eat 02/16- Improved oral intake, abd. pain improved/ resolved 02/20 - Pt reports nausea since last night on and off. also reports abd. pain, but LLQ pain has improved. Will cont. to monitor, check blood work including lactate. Slow down on PO intake again. Also discussed w/ palliative to cont. to be involved. no nausea monitor PAF Pt flipped from sinus rhythm to atrial fibrillation in the AM of 02/09 Per chart review appears that her amiodarone had not been given on 02/08/2024. However per chart review and discussion with nurses she did receive her dose on 02/08, 02/09 and 02/10 and 02/11 her heart rates are currently controlled continue amiodarone 200 mg daily, off oral anticoagulation due to bleeding Continue to monitor on telemetry, rate has been improving Cardiology consulted and following, appreciate their input ESRD on HD: typically T//Tue however while at [facility] is on MWF Nephrology following Sacral Wound Pt with stage II sacral ulcer Continue offloading as tolerated Wound consult Chronic hypoxic resp failure on 3.5L/COPD continue home inhalers Anemia of Chronic Disease hgb 11.4 on admission currently Hgb 8-9 monitor no s/sx of bleeding Chronic HFpEF, mod to severe MR volume status via HD Hx of T2DM last a1c in Mar was 5.9 5.9 on repeat this admission Thrombocytopenia Platelets have been downtrending Holding heparin for DVT prophylaxis Peripheral smear - The peripheral blood smear shows macrocytic appearing erythrocytes without significant anisopoikilocytosis. Polychromatophilic cells (a subset of reticulocytes) are noted but not markedly increased. I do not see significant numbers of schistocytes or spherocytes indicative of a hemolytic process. Leukocytes appear normal in number, relative distribution and morphology. Platelets are decreased in number and are unremarkable in appearance. I do not see any significant number of platelet clumps resulting in an artifactual thrombocytopenia.The associated CBC shows a HGB of 8.1 with high MCV and low platelets (69,000).The major findings are macrocytic anemia and thrombocytopenia. The macrocytic anemia appears to be long standing based on review of older CBC's.Besides megaloblastic anemias and MDS, macrocytosis may also be seen in association with certain medications (i.e. primarily chemotherapy drugs), alcohol usage, non-alcoholic liver disease and hypothyroidism (more commonly in elderly). Increased reticulocytes can also elevate the MCV due to their large size.Total bilirubin, B12 and folate are unremarkable. A recent TSH was normal. If clinically indicated then a reticulocyte count is suggested.No overt morphologic abnormalities, including changes of a myelodysplastic syndrome or hemolytic anemia, are seen though neither is excluded, in particular MDS given the long standing macrocytic anemia.Darinel Grossman M.D. Plt count improved - currently 100K (02/21/24) Cont. to Follow up as outpt Diet: low fiber DVT ppx: SQ Heparin on hold in setting of thrombocytopenia Dispo: Plan to DC to [facility] Admission and Anticipated Discharge Date Admission Date: February 07, 2024 Subjective ff up for acute diverticulitis, etc seen resting in bed, not in distress states she feels better overall but still has some LLQ pain no nausea/vomiting no fever/chills no other symptoms Review of Systems Review of Systems: all noted and negative except for above Physical Exam Physical Exam: General- oriented x 3, not in distress, speaks in sentences with no effort or accessory muscle use Eyes- anicteric Neck- no JVD Lungs- clear breath sounds bilaterally, no rales/wheezes Heart- normal rate, regular rhythm; no murmurs Abdomen- normal bowel sounds, nondistended, soft, (+) mild tenderness LLQ Extremities- no pretibial edema, no calf tenderness Neuro- alert, oriented x 3; no gross focal neurologic deficits Skin- warm & dry Results & Data Results & Data Vital Signs (Past 12 Hours) Vital Signs Temp Pulse Pulse Resp BP BP BP 02/22/24 12:57 36.5 C 54 L 127/53 L 02/22/24 12:30 52 L 129/58 L 02/22/24 12:00 52 L 132/54 L 02/22/24 11:30 52 L 119/52 L 02/22/24 11:00 51 L 137/52 L 02/22/24 10:30 51 L 135/52 L 02/22/24 10:00 53 L 138/54 L 02/22/24 09:33 55 L 125/54 L 02/22/24 09:25 36.5 C 55 L 02/22/24 07:55 36.5 C 56 L 18 116/69 02/22/24 07:00 53 L 02/22/24 03:51 36.4 C L 53 L 18 127/55 L Pulse Ox O2 Del Method O2 Flow Rate 02/22/24 12:57 02/22/24 12:30 02/22/24 12:00 02/22/24 11:30 02/22/24 11:00 02/22/24 10:30 02/22/24 10:00 02/22/24 09:33 02/22/24 09:25 02/22/24 07:55 98 Nasal Cannula 3 02/22/24 07:00 02/22/24 03:51 98 Nasal Cannula all noted and reviewed including below
--- NOTE | 2024-02-23 10:47 | CT Scan Report ---
EXAM: CT Abdomen and Pelvis Without Intravenous Contrast INDICATION: Left abdominal pain. TECHNIQUE: Axial computed tomography images of the abdomen and pelvis without intravenous contrast. Sagittal and coronal reformatted images were created and reviewed. This CT exam was performed using one or more of the following dose reduction techniques: automated exposure control, adjustment of the mA and/or kV according to patient size, and/or use of iterative reconstruction technique. COMPARISON: 02/12/2024 FINDINGS: Limitations: None. Lung bases: There is compressive atelectasis in both lower lobes. Pleural space: Increase left and new right small pleural effusions layering posteriorly. The. Heart: Stable cardiomegaly and small basilar pericardial effusion. Mediastinum: No abnormality noted. ABDOMEN: Liver: Lack of intravenous contrast limits detection of some masses. No abnormality noted. Gallbladder and bile ducts: Cholecystectomy. No ductal dilation or stone noted. Pancreas: No pancreatic mass, calcification, inflammation or ductal dilation noted. Spleen: Stable enlargement and simple appearing cysts. Adrenals: Stable 2.1 x 1.9 cm left adrenal mass. Right appears normal. Kidneys and ureters: Stable bilateral renal cortical atrophy. No hydronephrosis or obstructing stone. Stomach and bowel: Persistent but decreased fluid layering throughout nondilated bowel loops. Resolved intestinal thickening. No mesenteric inflammation. PELVIS: Appendix: No findings to suggest acute appendicitis. Bladder: Appears normal for the degree of filling. No stones or inflammation. No large mass. Masses may not be detected in the absence of opacification. Reproductive: Hysterectomy. ABDOMEN and PELVIS: Intraperitoneal space: No free air. No significant fluid collection. Bones/joints: No acute changes. Diffuse degenerative changes noted in the spine. Soft tissues: No significant abnormality noted. Vasculature: Dense atherosclerosis of the aorta and branches. No aneurysm. Lymph nodes: No pathologically enlarged lymph nodes. IMPRESSION: 1. Persistent but improved ileus with resolved intestinal thickening. 2. Increased bilateral pleural effusions and basilar atelectasis. ACT 112: Negative or not required by law. Electronically signed by Alejandra Roldan 02-23-2024 10:47 AM
--- NOTE | 2024-02-23 12:55 | Nephrology Progress Note ---
Date of Service February 23, 2024 Assessment & Plan (1) ESRD on hemodialysis: Plan: Patient is on dialysis Tuesday using left upper arm AV fistula. Last dialysis was Tuesday. Electrolytes are stable and no signs of volume overload. No indication for dialysis today. Will dialyze her tomorrow for 3-1/2 hours target UF 1 L. (2) Mesenteric ischemia: Plan: vascular suggests mesenteric angio w/ SMA stent initially but w/ concerns for anatomy of lesions and anemia trends and obligate plavix post stent. transfer to tertiary care declined -high risk surgery even endovascular but no other prospects for relief/symptom mgt -cardiology concerns re potential bleeding w/ single v dual anti plt therapy noted given past bleeding w/ AC for a fib (3) Diverticulitis of small bowel: Plan: improving on antibiotics per primary team. (4) Atrial fibrillation with rapid ventricular response: Plan: s/p cardioversion; rate controlled now >>maintain mag of 2 and K of 4 Admission and Anticipated Discharge Date Admission Date: February 07, 2024 Subjective Seen for ESRD. No shortness of breath or leg swelling. Last dialysis was yesterday. Review of Systems 2 Review of Systems: All other systems were reviewed and negative except as noted in HPI Physical Exam 2 Physical Exam: General exam: Appears comfortable, no acute distress HEENT: Pupils are equal and reactive to light Neck: No JVD, neck is supple trachea is midline Respiratory system: Clear breath sounds bilaterally. Gastrointestinal: Abdomen is soft, non distended, non tender, bowel sounds are present CVS: Regular rate and rhythm. No murmurs, rubs or gallops Musculoskeletal: No joint or muscle tenderness Extremities: Non tender, no edema, peripheral pulses are present Neuro: Oriented, no tremors, no focal neurological deficits Skin: No rashes Results & Data Vital Signs (Past 12 Hours) Vital Signs Temp Pulse Pulse Resp BP BP Pulse Ox 02/23/24 11:09 56 L 02/23/24 10:54 36.6 C 57 L 18 139/60 98 02/23/24 10:36 02/23/24 07:37 36.5 C 60 18 137/62 95 02/23/24 03:22 36.6 C 56 L 18 130/53 L 97 O2 Del Method O2 Flow Rate 02/23/24 11:09 02/23/24 10:54 Nasal Cannula 2 02/23/24 10:36 Nasal Cannula 3 02/23/24 07:37 Nasal Cannula 2 02/23/24 03:22 Nasal Cannula Laboratory Results 02/22/24 06:36
--- NOTE | 2024-02-23 19:00 | Hospitalist Progress Note ---
Date of Service February 23, 2024 Assessment & Plan (1) Abdominal pain: (2) Diverticulitis of small bowel: (3) Enterocolitis: (4) ESRD (end stage renal disease) on dialysis: Plan Per previous hospitalist with addendum: This is a 78-year-old female who has a significant past medical history of chronic hypoxic respiratory failure on 3 L of O2, COPD, PAF off anticoagulation secondary to bleeding, mesenteric artery stenosis, HTN, mitral regurgitation, ESRD on HD, HLD, T2DM, secondary hyperparathyroidism, anemia and ESRD, hypogammaglobinemia and history of tobacco abuse who presents to ED secondary to abdominal pain. Recent admission 01/23 - 01/29 for near syncope. Seen and evaluated by cardiology. [place] possibly 2/2 labile HTN with HD, Lisinopril stopped and midodrine 3x weekly continued. She developed abd pain throughout stay and diarrhea. Stool biofire and for cdiff negative. Empirically started on oral vanco and discharged to [facility]. While at [facility] pt has been having worsening abd pain, n/v/d. Vanco increased to 250mg QID. She was borderline hypotensive and wbc climbing so sent to ED for eval. 02/12/2024: Case discussed multiple times during the day with general surgery and nephrology. General surgery requesting CTA of the abdomen pelvis given patient's persistent significant tenderness to palpation on exam. Concern for mesenteric ischemia given patient's complex medical history. Case further discussed with nephrology who advised can proceed with IV contrast for the needed CTA of the abdomen pelvis to rule out mesenteric ischemia. Later notified by nursing that patient was a "code purple" in the CT area. Patient was seen at that time by ER physician Dr. Parth Bliss who noted that she was hypotensive and in A-fib with RVR. Patient then became unresponsive and was then cardioverted at that time into sinus rhythm. she was transferred to the ICU and had a central and arterial line placed, concern for her requiring pressor support. Noted severe metabolic acidosis. She was awake and responsive to her name, eventually stating at one point that she would like to have a bowel movement. 02/13/2024- patient still ICU status. CTA abdomen pelvis noting "high grade stenosis noted at the origin of the superior and inferior mesenteric and renal arteries." Vascular surgery was consulted and recommends stenting. Patient discussing with daughter and son-in-law whether she wants to proceed with surgery. palliative care consult still pending. CT abdomen pelvis also noting improved colitis. Continue with antibiotics. Abdominal Pain Diverticulitis of the small bowel Possible persistent/recurrent c diff colitis Pt with significant leukocytosis WBC > 30K, now normalized CT noting concern for diverticulitis stool cultures negative Repeat C. difficile testing was initially not able to be obtained before treatment. Eventually obtained on 02/10 after abx treatments and was negative NPO--> transitioned to clears on 02/09/24, full liquids on 02/10/24 and low fiber diet on 02/11/24. per nursing, patient without much intake IV zosyn switched to IV Rocephin and IV Flagyl for treatment of diverticulitis, p.o. vancomycin 500mg every 6 hours also added for treatment of likely C. difficile colitis along with IV Flagyl probiotic daily consult general surg, appreciate recs -continue with full liquids as abd still sig tender to palpation -Continue abx regimen Infectious disease consulted, appreciate recs - treat with rocephin + flagyl, cont. for 10-14 days. Ok to stop vanco if c. diff negative, po vanco was discontinued continue to monitor -- still has LLQ tenderness today, although no nausea, fever monitor for now 02/22 still having LLQ pain, tenderness repeat CT abd/pelvis: 1. Persistent but improved ileus with resolved intestinal thickening. 2. Increased bilateral pleural effusions and basilar atelectasis. will request Gen Surg to re-evaluate patient Mesenteric ischemia Pt with SMA and IVANA stenosis on CTA abd/pelvis, also with exquisite tenderness to entire abd. Hx positive for post prandial pain as well as pain while eating which limits her intake, as well as some weight loss. Dr. Vale recommends pt undergo mesenteric angio with BAT BOY/GIRL/stenting of SMA. After further discussion, it was recommended that pt would be transferred to tertiary center for the procedure - [facility] [place] contacted - discussed w/ vasc. surgery, gen. surgery, GI, hospitalist - pt was eventually not accepted for transfer and it was recommended that pt follows up with vasc. surgery as outpt 02/15 Abdominal pain is overall improving, WBC normalized, pt is attempting to eat 02/16- Improved oral intake, abd. pain improved/ resolved 02/20 - Pt reports nausea since last night on and off. also reports abd. pain, but LLQ pain has improved. Will cont. to monitor, check blood work including lactate. Slow down on PO intake again. Also discussed w/ palliative to cont. to be involved. 02/22 per above PAF Pt flipped from sinus rhythm to atrial fibrillation in the AM of 02/09 Per chart review appears that her amiodarone had not been given on 02/08/2024. However per chart review and discussion with nurses she did receive her dose on 02/08, 02/09 and 02/10 and 02/11 her heart rates are currently controlled continue amiodarone 200 mg daily, off oral anticoagulation due to bleeding Continue to monitor on telemetry, rate has been improving Cardiology consulted and following, appreciate their input ESRD on HD: typically T//Tue however while at [facility] is on MWF Nephrology following Sacral Wound Pt with stage II sacral ulcer Continue offloading as tolerated Wound consult Chronic hypoxic resp failure on 3.5L/COPD continue home inhalers Anemia of Chronic Disease hgb 11.4 on admission currently Hgb 8-9 monitor no s/sx of bleeding Chronic HFpEF, mod to severe MR volume status via HD Hx of T2DM last a1c in Mar was 5.9 5.9 on repeat this admission Thrombocytopenia Platelets have been downtrending Holding heparin for DVT prophylaxis Peripheral smear - The peripheral blood smear shows macrocytic appearing erythrocytes without significant anisopoikilocytosis. Polychromatophilic cells (a subset of reticulocytes) are noted but not markedly increased. I do not see significant numbers of schistocytes or spherocytes indicative of a hemolytic process. Leukocytes appear normal in number, relative distribution and morphology. Platelets are decreased in number and are unremarkable in appearance. I do not see any significant number of platelet clumps resulting in an artifactual thrombocytopenia.The associated CBC shows a HGB of 8.1 with high MCV and low platelets (69,000).The major findings are macrocytic anemia and thrombocytopenia. The macrocytic anemia appears to be long standing based on review of older CBC's.Besides megaloblastic anemias and MDS, macrocytosis may also be seen in association with certain medications (i.e. primarily chemotherapy drugs), alcohol usage, non-alcoholic liver disease and hypothyroidism (more commonly in elderly). Increased reticulocytes can also elevate the MCV due to their large size.Total bilirubin, B12 and folate are unremarkable. A recent TSH was normal. If clinically indicated then a reticulocyte count is suggested.No overt morphologic abnormalities, including changes of a myelodysplastic syndrome or hemolytic anemia, are seen though neither is excluded, in particular MDS given the long standing macrocytic anemia.Darinel Grossman M.D. Plt count improved - currently 100K (02/21/24) Cont. to Follow up as outpt Diet: low fiber DVT ppx: SQ Heparin on hold in setting of thrombocytopenia Dispo: Plan to DC to [facility] Admission and Anticipated Discharge Date Admission Date: February 07, 2024 Subjective ff up for acute diverticulitis, etc seen resting in bed, sitting up, just had lunch still having 4/10 LLQ pain no nausea no fever/chills no other new symptoms Review of Systems Review of Systems: all noted and negative except for above Physical Exam Physical Exam: General- oriented x 3, not in distress, speaks in sentences with no effort or accessory muscle use Eyes- anicteric Neck- no JVD Lungs- clear breath sounds bilaterally, no crackles/wheezing Heart- normal rate, regular rhythm; no murmurs Abdomen- normal bowel sounds, nondistended, soft, mild LLQ tenderness Extremities- no pretibial edema, no calf tenderness Neuro- alert, oriented x 3; no gross focal neurologic deficits Skin- warm & dry Results & Data Results & Data Vital Signs (Past 12 Hours) Vital Signs Temp Pulse Pulse Resp BP BP Pulse Ox 02/23/24 15:44 36.9 C 58 L 18 147/56 H 99 02/23/24 14:35 57 L 02/23/24 11:09 56 L 02/23/24 10:54 36.6 C 57 L 18 139/60 98 02/23/24 10:36 02/23/24 07:37 36.5 C 60 18 137/62 95 O2 Del Method O2 Flow Rate 02/23/24 15:44 Nasal Cannula 2 02/23/24 14:35 02/23/24 11:09 02/23/24 10:54 Nasal Cannula 2 02/23/24 10:36 Nasal Cannula 3 02/23/24 07:37 Nasal Cannula 2 all noted and reviewed including below
[2024-02-24] MEDS: HEPARIN SOD (PORCINE) 1000 UNIT/ML IV ONE (09:29)
[2024-02-24] MEDS: HEPARIN SOD (PORCINE) 1000 UNIT/ML IV SCH (09:58)
--- NOTE | 2024-02-24 10:10 | Surgery Progress Note ---
Date of Service February 24, 2024 Assessment & Plan Admission and Anticipated Discharge Date Admission Date: February 07, 2024 Subjective Patient in dialysis CT scan results noted- no general surgery issues noted pain patient is having is post-prandial according to nursing. possibly may need more acute intervention for mesenteric vascular disease; SMA stenting. Results & Data Vital Signs (Past 12 Hours) Vital Signs Temp Pulse Pulse Resp BP BP BP 02/24/24 09:30 56 L 122/54 L 02/24/24 09:18 56 L 132/52 L 02/24/24 09:03 36.5 C 55 L 02/24/24 08:14 36.7 C 59 L 18 127/56 L 02/24/24 03:46 36.6 C 66 17 133/52 L 02/24/24 00:39 36.8 C 55 L 16 134/66 Pulse Ox O2 Del Method O2 Flow Rate 02/24/24 09:30 02/24/24 09:18 02/24/24 09:03 02/24/24 08:14 97 Nasal Cannula 3 02/24/24 03:46 97 Room Air 02/24/24 00:39 92 Nasal Cannula 2.0
[2024-02-24] MEDS: EPOETIN ALFA 10,000 UNITS/ML VIAL IV ONE (11:33)
--- NOTE | 2024-02-24 13:58 | Nephrology Progress Note ---
Date of Service February 24, 2024 Assessment & Plan (1) ESRD on hemodialysis: Plan: Patient is on dialysis Tuesday using left upper arm AV fistula. Electrolytes are stable and no signs of volume overload. She tolerated dialysis well today for 3-1/2 hours target UF 1 L. (2) Mesenteric ischemia: Plan: vascular suggests mesenteric angio w/ SMA stent initially but w/ concerns for anatomy of lesions and anemia trends and obligate plavix post stent. transfer to tertiary care declined -high risk surgery even endovascular but no other prospects for relief/symptom mgt - continue supportive management (3) Atrial fibrillation with rapid ventricular response: Plan: s/p cardioversion; rate controlled now >>maintain mag of 2 and K of 4 Admission and Anticipated Discharge Date Admission Date: February 07, 2024 Subjective Seen for ESRD. Main complaint is weakness. No shortness of breath. Patient was seen and examined while on dialysis. Review of Systems 2 Review of Systems: All other systems were reviewed and negative except as noted in HPI Physical Exam 2 Physical Exam: General exam: Appears comfortable, no acute distress HEENT: Pupils are equal and reactive to light Neck: No JVD, neck is supple trachea is midline Respiratory system: Clear breath sounds bilaterally. Gastrointestinal: Abdomen is soft, non distended, non tender, bowel sounds are present CVS: Regular rate and rhythm. No murmurs, rubs or gallops Musculoskeletal: No joint or muscle tenderness Extremities: Non tender, no edema, peripheral pulses are present Neuro: Oriented, no tremors, no focal neurological deficits Skin: No rashes Results & Data Vital Signs (Past 12 Hours) Vital Signs Temp Pulse Pulse Resp BP BP BP 02/24/24 13:40 57 L 02/24/24 12:50 36.5 C 55 L 123/50 L 02/24/24 12:30 57 L 118/45 L 02/24/24 12:00 56 L 125/47 L 02/24/24 11:30 55 L 128/47 L 02/24/24 11:00 55 L 137/52 L 02/24/24 10:30 54 L 127/49 L 02/24/24 10:00 56 L 134/53 L 02/24/24 09:30 56 L 122/54 L 02/24/24 09:18 56 L 132/52 L 02/24/24 09:03 36.5 C 55 L 02/24/24 08:14 36.7 C 59 L 18 127/56 L 02/24/24 08:00 02/24/24 03:46 36.6 C 66 17 133/52 L Pulse Ox O2 Del Method O2 Flow Rate 02/24/24 13:40 02/24/24 12:50 02/24/24 12:30 02/24/24 12:00 02/24/24 11:30 02/24/24 11:00 02/24/24 10:30 02/24/24 10:00 02/24/24 09:30 02/24/24 09:18 02/24/24 09:03 02/24/24 08:14 97 Nasal Cannula 3 02/24/24 08:00 Nasal Cannula 3 02/24/24 03:46 97 Room Air Laboratory Results 02/22/24 06:36
--- NOTE | 2024-02-24 16:39 | Hospitalist Progress Note ---
Date of Service February 24, 2024 Assessment & Plan (1) Abdominal pain: (2) Diverticulitis of small bowel: (3) Enterocolitis: (4) ESRD (end stage renal disease) on dialysis: Plan Per previous hospitalist with addendum: This is a 78-year-old female who has a significant past medical history of chronic hypoxic respiratory failure on 3 L of O2, COPD, PAF off anticoagulation secondary to bleeding, mesenteric artery stenosis, HTN, mitral regurgitation, ESRD on HD, HLD, T2DM, secondary hyperparathyroidism, anemia and ESRD, hypogammaglobinemia and history of tobacco abuse who presents to ED secondary to abdominal pain. Recent admission 01/23 - 01/29 for near syncope. Seen and evaluated by cardiology. [place] possibly 2/2 labile HTN with HD, Lisinopril stopped and midodrine 3x weekly continued. She developed abd pain throughout stay and diarrhea. Stool biofire and for cdiff negative. Empirically started on oral vanco and discharged to [facility]. While at [facility] pt has been having worsening abd pain, n/v/d. Vanco increased to 250mg QID. She was borderline hypotensive and wbc climbing so sent to ED for eval. 02/12/2024: Case discussed multiple times during the day with general surgery and nephrology. General surgery requesting CTA of the abdomen pelvis given patient's persistent significant tenderness to palpation on exam. Concern for mesenteric ischemia given patient's complex medical history. Case further discussed with nephrology who advised can proceed with IV contrast for the needed CTA of the abdomen pelvis to rule out mesenteric ischemia. Later notified by nursing that patient was a "code purple" in the CT area. Patient was seen at that time by ER physician Dr. Parth Bliss who noted that she was hypotensive and in A-fib with RVR. Patient then became unresponsive and was then cardioverted at that time into sinus rhythm. she was transferred to the ICU and had a central and arterial line placed, concern for her requiring pressor support. Noted severe metabolic acidosis. She was awake and responsive to her name, eventually stating at one point that she would like to have a bowel movement. 02/13/2024- patient still ICU status. CTA abdomen pelvis noting "high grade stenosis noted at the origin of the superior and inferior mesenteric and renal arteries." Vascular surgery was consulted and recommends stenting. Patient discussing with daughter and son-in-law whether she wants to proceed with surgery. palliative care consult still pending. CT abdomen pelvis also noting improved colitis. Continue with antibiotics. Abdominal Pain Diverticulitis of the small bowel Possible persistent/recurrent c diff colitis Pt with significant leukocytosis WBC > 30K, now normalized CT noting concern for diverticulitis stool cultures negative Repeat C. difficile testing was initially not able to be obtained before treatment. Eventually obtained on 02/10 after abx treatments and was negative NPO--> transitioned to clears on 02/09/24, full liquids on 02/10/24 and low fiber diet on 02/11/24. per nursing, patient without much intake IV zosyn switched to IV Rocephin and IV Flagyl for treatment of diverticulitis, p.o. vancomycin 500mg every 6 hours also added for treatment of likely C. difficile colitis along with IV Flagyl probiotic daily consult general surg, appreciate recs -continue with full liquids as abd still sig tender to palpation -Continue abx regimen Infectious disease consulted, appreciate recs - treat with rocephin + flagyl, cont. for 10-14 days. Ok to stop vanco if c. diff negative, po vanco was discontinued continue to monitor -- still has LLQ tenderness today, although no nausea, fever monitor for now 02/22 still having LLQ pain, tenderness repeat CT abd/pelvis: 1. Persistent but improved ileus with resolved intestinal thickening. 2. Increased bilateral pleural effusions and basilar atelectasis. will request Gen Surg to re-evaluate patient 02/23 Discussed with general surgery-Dr. Purvis Recommended discussion with vascular surgery for possible earlier vascular intervention for the SMA stenosis which could be causing patient's pain Discussed with Dr. Vale Recommend to transfer to [facility] for stent placement or open bypass surgery However upon reevaluation afternoon, patient affirms that her abdominal pain is actually improving She would like to defer any type of procedure or surgery She would like to defer any consultation or transfer to tertiary level care and would like to be observed for now Mesenteric ischemia Pt with SMA and IVANA stenosis on CTA abd/pelvis, also with exquisite tenderness to entire abd. Hx positive for post prandial pain as well as pain while eating which limits her intake, as well as some weight loss. Dr. Vale recommends pt undergo mesenteric angio with MANUFACTURING INDUSTRIAL ENGINEER/stenting of SMA. After further discussion, it was recommended that pt would be transferred to tertiary center for the procedure - C contacted - discussed w/ vasc. surgery, gen. surgery, GI, hospitalist - pt was eventually not accepted for transfer and it was recommended that pt follows up with vasc. surgery as outpt 02/15 Abdominal pain is overall improving, WBC normalized, pt is attempting to eat 02/16- Improved oral intake, abd. pain improved/ resolved 02/20 - Pt reports nausea since last night on and off. also reports abd. pain, but LLQ pain has improved. Will cont. to monitor, check blood work including lactate. Slow down on PO intake again. Also discussed w/ palliative to cont. to be involved. 02/23 per above PAF Pt flipped from sinus rhythm to atrial fibrillation in the AM of 02/09 Per chart review appears that her amiodarone had not been given on 02/08/2024. However per chart review and discussion with nurses she did receive her dose on 02/08, 02/09 and 02/10 and 02/11 her heart rates are currently controlled continue amiodarone 200 mg daily, off oral anticoagulation due to bleeding Continue to monitor on telemetry, rate has been improving Cardiology consulted and following, appreciate their input ESRD on HD: typically T//Sat however while at [facility] is on MWF Nephrology following Sacral Wound Pt with stage II sacral ulcer Continue offloading as tolerated Wound consult Chronic hypoxic resp failure on 3.5L/COPD continue home inhalers Anemia of Chronic Disease hgb 11.4 on admission currently Hgb 8-9 monitor no s/sx of bleeding Chronic HFpEF, mod to severe MR volume status via HD Hx of T2DM last a1c in Mar was 5.9 5.9 on repeat this admission Thrombocytopenia Platelets have been downtrending Holding heparin for DVT prophylaxis Peripheral smear - The peripheral blood smear shows macrocytic appearing erythrocytes without significant anisopoikilocytosis. Polychromatophilic cells (a subset of reticulocytes) are noted but not markedly increased. I do not see significant numbers of schistocytes or spherocytes indicative of a hemolytic process. Leukocytes appear normal in number, relative distribution and morphology. Platelets are decreased in number and are unremarkable in appearance. I do not see any significant number of platelet clumps resulting in an artifactual thrombocytopenia.The associated CBC shows a HGB of 8.1 with high MCV and low platelets (69,000).The major findings are macrocytic anemia and thrombocytopenia. The macrocytic anemia appears to be long standing based on review of older CBC's.Besides megaloblastic anemias and MDS, macrocytosis may also be seen in association with certain medications (i.e. primarily chemotherapy drugs), alcohol usage, non-alcoholic liver disease and hypothyroidism (more commonly in elderly). Increased reticulocytes can also elevate the MCV due to their large size.Total bilirubin, B12 and folate are unremarkable. A recent TSH was normal. If clinically indicated then a reticulocyte count is suggested.No overt morphologic abnormalities, including changes of a myelodysplastic syndrome or hemolytic anemia, are seen though nei ther is excluded, in particular MDS given the long standing macrocytic anemia.Darinel Grossman M.D. Plt count improved - currently 100K (02/21/24) Cont. to Follow up as outpt Diet: low fiber DVT ppx: SQ Heparin on hold in setting of thrombocytopenia Dispo: Plan to DC to [facility] once medically stable Admission and Anticipated Discharge Date Admission Date: February 07, 2024 Subjective Follow-up for acute diverticulitis, SMA stenosis, etc. Seen resting in bed, comfortable, not in distress Reports 5/10 pain on the left lower quadrant No nausea or vomiting Patient reevaluated around 1:30 PM Reports improvement with abdominal pain, requesting salad for lunch No nausea or vomiting States that overall her abdominal pain is improving Declines consultation or transfer to [facility] or [facility] Would like to monitor symptoms for now Review of Systems Review of Systems: all noted and negative except for above Physical Exam Physical Exam: General- oriented x 3, not in distress, speaks in sentences with no effort or accessory muscle use Eyes- anicteric Neck- no JVD Lungs- clear breath sounds bilaterally, no rales/wheezes Heart- normal rate, regular rhythm; no murmurs Abdomen- normal bowel sounds, nondistended, soft, very minimal tenderness LLQ Extremities- no pretibial edema, no calf tenderness Neuro- alert, oriented x 3; no gross focal neurologic deficits Skin- warm & dry Results & Data Results & Data Vital Signs (Past 12 Hours) Vital Signs Temp Pulse Pulse Resp BP BP BP 02/24/24 15:23 36.5 C 61 18 129/68 02/24/24 13:40 57 L 02/24/24 12:50 36.5 C 55 L 123/50 L 02/24/24 12:30 57 L 118/45 L 02/24/24 12:00 56 L 125/47 L 02/24/24 11:30 55 L 128/47 L 02/24/24 11:00 55 L 137/52 L 02/24/24 10:30 54 L 127/49 L 02/24/24 10:00 56 L 134/53 L 02/24/24 09:30 56 L 122/54 L 02/24/24 09:18 56 L 132/52 L 02/24/24 09:03 36.5 C 55 L 02/24/24 08:14 36.7 C 59 L 18 127/56 L 02/24/24 08:00 Pulse Ox O2 Del Method O2 Flow Rate 02/24/24 15:23 96 Nasal Cannula 3 02/24/24 13:40 02/24/24 12:50 02/24/24 12:30 02/24/24 12:00 02/24/24 11:30 02/24/24 11:00 02/24/24 10:30 02/24/24 10:00 02/24/24 09:30 02/24/24 09:18 02/24/24 09:03 02/24/24 08:14 97 Nasal Cannula 3 02/24/24 08:00 Nasal Cannula 3 all noted and reviewed including below
--- NOTE | 2024-02-25 10:18 | Hospitalist Progress Note ---
Date of Service February 25, 2024 Assessment & Plan (1) Abdominal pain: (2) Diverticulitis of small bowel: (3) Enterocolitis: (4) ESRD (end stage renal disease) on dialysis: Plan Per previous hospitalist with addendum: This is a 78-year-old female who has a significant past medical history of chronic hypoxic respiratory failure on 3 L of O2, COPD, PAF off anticoagulation secondary to bleeding, mesenteric artery stenosis, HTN, mitral regurgitation, ESRD on HD, HLD, T2DM, secondary hyperparathyroidism, anemia and ESRD, hypogammaglobinemia and history of tobacco abuse who presents to ED secondary to abdominal pain. Recent admission 01/23 - 01/29 for near syncope. Seen and evaluated by cardiology. [place] possibly 2/2 labile HTN with HD, Lisinopril stopped and midodrine 3x weekly continued. She developed abd pain throughout stay and diarrhea. Stool biofire and for cdiff negative. Empirically started on oral vanco and discharged to [facility]. While at [facility] pt has been having worsening abd pain, n/v/d. Vanco increased to 250mg QID. She was borderline hypotensive and wbc climbing so sent to ED for eval. 02/12/2024: Case discussed multiple times during the day with general surgery and nephrology. General surgery requesting CTA of the abdomen pelvis given patient's persistent significant tenderness to palpation on exam. Concern for mesenteric ischemia given patient's complex medical history. Case further discussed with nephrology who advised can proceed with IV contrast for the needed CTA of the abdomen pelvis to rule out mesenteric ischemia. Later notified by nursing that patient was a "code purple" in the CT area. Patient was seen at that time by ER physician Dr. Parth Bliss who noted that she was hypotensive and in A-fib with RVR. Patient then became unresponsive and was then cardioverted at that time into sinus rhythm. she was transferred to the ICU and had a central and arterial line placed, concern for her requiring pressor support. Noted severe metabolic acidosis. She was awake and responsive to her name, eventually stating at one point that she would like to have a bowel movement. 02/13/2024- patient still ICU status. CTA abdomen pelvis noting "high grade stenosis noted at the origin of the superior and inferior mesenteric and renal arteries." Vascular surgery was consulted and recommends stenting. Patient discussing with daughter and son-in-law whether she wants to proceed with surgery. palliative care consult still pending. CT abdomen pelvis also noting improved colitis. Continue with antibiotics. Abdominal Pain Diverticulitis of the small bowel Possible persistent/recurrent c diff colitis Pt with significant leukocytosis WBC > 30K, now normalized CT noting concern for diverticulitis stool cultures negative Repeat C. difficile testing was initially not able to be obtained before treatment. Eventually obtained on 02/10 after abx treatments and was negative NPO--> transitioned to clears on 02/09/24, full liquids on 02/10/24 and low fiber diet on 02/11/24. per nursing, patient without much intake IV zosyn switched to IV Rocephin and IV Flagyl for treatment of diverticulitis, p.o. vancomycin 500mg every 6 hours also added for treatment of likely C. difficile colitis along with IV Flagyl probiotic daily consult general surg, appreciate recs -continue with full liquids as abd still sig tender to palpation -Continue abx regimen Infectious disease consulted, appreciate recs - treat with rocephin + flagyl, cont. for 10-14 days. Ok to stop vanco if c. diff negative, po vanco was discontinued continue to monitor -- still has LLQ tenderness today, although no nausea, fever monitor for now 02/22 still having LLQ pain, tenderness repeat CT abd/pelvis: 1. Persistent but improved ileus with resolved intestinal thickening. 2. Increased bilateral pleural effusions and basilar atelectasis. will request Gen Surg to re-evaluate patient 02/23 Discussed with general surgery-Dr. Purvis Recommended discussion with vascular surgery for possible earlier vascular intervention for the SMA stenosis which could be causing patient's pain Discussed with Dr. Vale Recommend to transfer to [facility] for stent placement or open bypass surgery However upon reevaluation afternoon, patient affirms that her abdominal pain is actually improving She would like to defer any type of procedure or surgery She would like to defer any consultation or transfer to tertiary level care and would like to be observed for now 02/24 having abdominal pain with meals still declines transfer/referral to tertiary level care, unsure if she would like to proceed with any procedures or surgery would like to continue monitoring symptoms for now Mesenteric ischemia Pt with SMA and IVANA stenosis on CTA abd/pelvis, also with exquisite tenderness to entire abd. Hx positive for post prandial pain as well as pain while eating which limits her intake, as well as some weight loss. Dr. Vale recommends pt undergo mesenteric angio with ANALYTIC PROGRAMMER/stenting of SMA. After further discussion, it was recommended that pt would be transferred to tertiary center for the procedure - C contacted - discussed w/ vasc. surgery, gen. surgery, GI, hospitalist - pt was eventually not accepted for transfer and it was recommended that pt follows up with vasc. surgery as outpt 02/15 Abdominal pain is overall improving, WBC normalized, pt is attempting to eat 02/16- Improved oral intake, abd. pain improved/ resolved 02/20 - Pt reports nausea since last night on and off. also reports abd. pain, but LLQ pain has improved. Will cont. to monitor, check blood work including lactate. Slow down on PO intake again. Also discussed w/ palliative to cont. to be involved. 02/23 per above 02/24 management per above PAF Pt flipped from sinus rhythm to atrial fibrillation in the AM of 02/09 Per chart review appears that her amiodarone had not been given on 02/08/2024. However per chart review and discussion with nurses she did receive her dose on 02/08, 02/09 and 02/10 and 02/11 her heart rates are currently controlled continue amiodarone 200 mg daily, off oral anticoagulation due to bleeding Continue to monitor on telemetry, rate has been improving Cardiology consulted and following, appreciate their input ESRD on HD: typically T//Sat however while at [facility] is on MWF Nephrology following Sacral Wound Pt with stage II sacral ulcer Continue offloading as tolerated Wound consult Chronic hypoxic resp failure on 3.5L/COPD continue home inhalers Anemia of Chronic Disease hgb 11.4 on admission currently Hgb 8-9 monitor no s/sx of bleeding Chronic HFpEF, mod to severe MR volume status via HD Hx of T2DM last a1c in Mar was 5.9 5.9 on repeat this admission Thrombocytopenia Platelets have been downtrending Holding heparin for DVT prophylaxis Peripheral smear - The peripheral blood smear shows macrocytic appearing erythrocytes without significant anisopoikilocytosis. Polychromatophilic cells (a subset of reticulocytes) are noted but not markedly increased. I do not see significant numbers of schistocytes or spherocytes indicative of a hemolytic process. Leukocytes appear normal in number, relative distribution and morphology. Platelets are decreased in number and are unremarkable in appearance. I do not see any significant number of platelet clumps resulting in an artifactual thrombocytopenia.The associated CBC shows a HGB of 8.1 with high MCV and low platelets (69,000).The major findings are macrocytic anemia and thrombocytopenia. The macrocytic anemia appears to be long standing based on review of older CBC's.Besides megaloblastic anemias and MDS, macrocytosis may also be seen in association with certain medications (i.e. primarily chem otherapy drugs), alcohol usage, non-alcoholic liver disease and hypothyroidism (more commonly in elderly). Increased reticulocytes can also elevate the MCV due to their large size.Total bilirubin, B12 and folate are unremarkable. A recent TSH was normal. If clinically indicated then a reticulocyte count is suggested.No overt morphologic abnormalities, including changes of a myelodysplastic syndrome or hemolytic anemia, are seen though neither is excluded, in particular MDS given the long standing macrocytic anemia.Darinel Grossman M.D. Plt count improved - currently 100K (02/21/24) Cont. to Follow up as outpt Diet: low fiber DVT ppx: SQ Heparin on hold in setting of thrombocytopenia Dispo: Plan to DC to [facility] once medically stable Admission and Anticipated Discharge Date Admission Date: February 07, 2024 Subjective ff up for acute diverticulitis, etc seen resting in bed, comfortable states she still has some abdominal pain with eating no nausea/vomiting declines referral to [facility] or Review of Systems Review of Systems: all noted and negative except for above Physical Exam Physical Exam: General- oriented x 3, not in distress, speaks in sentences with no effort or accessory muscle use Eyes- anicteric Neck- no JVD Lungs- clear breath sounds bilaterally, no rales/wheezes Heart- normal rate, regular rhythm; no murmurs Abdomen- normal bowel sounds, nondistended, soft, nontender Extremities- no pretibial edema, no calf tenderness Neuro- alert, oriented x 3; no gross focal neurologic deficits Skin- warm & dry Results & Data Results & Data Vital Signs (Past 12 Hours) Vital Signs Temp Pulse Pulse Resp BP Pulse Ox O2 Del Method 02/25/24 08:31 36.7 C 60 19 118/68 100 Nasal Cannula 02/25/24 07:42 Nasal Cannula 02/25/24 03:09 36.6 C 60 18 128/48 L 94 Nasal Cannula 02/24/24 22:35 36.6 C 62 18 129/48 L 97 Nasal Cannula O2 Flow Rate 02/25/24 08:31 3 02/25/24 07:42 3 02/25/24 03:09 02/24/24 22:35 all noted and reviewed including below
--- NOTE | 2024-02-25 12:34 | Nephrology Progress Note ---
Date of Service February 25, 2024 Assessment & Plan (1) ESRD on hemodialysis: Plan: Patient is on dialysis Tuesday using left upper arm AV fistula. Electrolytes are stable and no signs of volume overload. She tolerated dialysis well yesterday for 3-1/2 hours target UF 1 L. (2) Mesenteric ischemia: Plan: vascular suggests mesenteric angio w/ SMA stent initially but w/ concerns for anatomy of lesions and anemia trends and obligate plavix post stent. transfer to tertiary care declined -high risk surgery even endovascular but no other prospects for relief/symptom mgt - continue supportive management (3) Atrial fibrillation with rapid ventricular response: Plan: s/p cardioversion; rate controlled now >>maintain mag of 2 and K of 4 Admission and Anticipated Discharge Date Admission Date: February 07, 2024 Subjective seen for ESRD. She had dialysis yesterday. Complains of nausea this morning. No shortness of breath. Review of Systems 2 Review of Systems: All other systems were reviewed and negative except as noted in HPI Physical Exam 2 Physical Exam: General exam: Appears comfortable, no acute distress HEENT: Pupils are equal and reactive to light Neck: No JVD, neck is supple trachea is midline Respiratory system: Clear breath sounds bilaterally. Gastrointestinal: Abdomen is soft, non distended, non tender, bowel sounds are present CVS: Regular rate and rhythm. No murmurs, rubs or gallops Musculoskeletal: No joint or muscle tenderness Extremities: Non tender, no edema, peripheral pulses are present Neuro: Oriented, no tremors, no focal neurological deficits Skin: No rashes Results & Data Vital Signs (Past 12 Hours) Vital Signs Temp Pulse Pulse Pulse Resp BP Pulse Ox 02/25/24 12:01 36.7 C 62 18 133/57 L 99 02/25/24 10:34 59 L 02/25/24 08:31 36.7 C 60 19 118/68 100 02/25/24 07:42 02/25/24 03:09 36.6 C 60 18 128/48 L 94 O2 Del Method O2 Flow Rate 02/25/24 12:01 Nasal Cannula 3 02/25/24 10:34 02/25/24 08:31 Nasal Cannula 3 02/25/24 07:42 Nasal Cannula 3 02/25/24 03:09 Nasal Cannula Laboratory Results 02/22/24 06:36
[2024-02-26 08:28] LABS: Hematocrit (blood only) 32.2 % (37.0-47.0); Hemoglobin 10.1 g/dl (12.0-16.0); Mean Corpuscular Hemoglobin 35.3 pg (25.0-34.0); Mean Corpuscular Hgb Conc 31.4 g/dL (32.0-36.0); Mean Corpuscular Volume 112.6 fL (80.0-100.0); Mean Platelet Volume 11.9 fL (9.4-12.4); Platelet Count 144 K/uL (130-400); RDW Coefficient of Variation 18.7 % (11.5-14.5); RDW Standard Deviation 77.9 fL (36.4-46.3); Red Blood Count 2.86 M/uL (4.20-5.40); White Blood Count 6.99 K/ul (4.8-10.8)
[2024-02-26 08:55] LABS: BUN Creatinine Ratio 3.2 (10-20); Calcium 8.2 mg/dl (8.6-10.3); Creatinine Clr Calc Pharmacy 8.9 ml/min; Potassium 4.1 mmol/L (3.5-5.1)
--- NOTE | 2024-02-26 15:21 | Nephrology Progress Note ---
Date of Service February 26, 2024 Assessment & Plan (1) ESRD on hemodialysis: Plan: Patient is on dialysis Tuesday using left upper arm AV fistula. Electrolytes are stable and no signs of volume overload. She tolerated dialysis well on Tuesday for 3-1/2 hours target UF 1 L. will dialyze her tomorrow for 3-1/2 hours target UF 1 L. (2) Mesenteric ischemia: Plan: vascular suggests mesenteric angio w/ SMA stent initially but w/ concerns for anatomy of lesions and anemia trends and obligate plavix post stent. transfer to tertiary care declined -high risk surgery even endovascular but no other prospects for relief/symptom mgt - continue supportive management (3) Atrial fibrillation with rapid ventricular response: Plan: s/p cardioversion; rate controlled now >>maintain mag of 2 and K of 4 Admission and Anticipated Discharge Date Admission Date: February 07, 2024 Subjective seen for ESRD. Main complaint is intermittent abdominal pain worse with eating. No shortness of breath. Review of Systems 2 Review of Systems: All other systems were reviewed and negative except as noted in HPI Physical Exam 2 Physical Exam: General exam: Appears comfortable, no acute distress HEENT: Pupils are equal and reactive to light Neck: No JVD, neck is supple trachea is midline Respiratory system: Clear breath sounds bilaterally. Gastrointestinal: Abdomen is soft, non distended, non tender, bowel sounds are present CVS: Regular rate and rhythm. No murmurs, rubs or gallops Musculoskeletal: No joint or muscle tenderness Extremities: Non tender, no edema, peripheral pulses are present Neuro: Oriented, no tremors, no focal neurological deficits Skin: No rashes Results & Data Vital Signs (Past 12 Hours) Vital Signs Temp Pulse Pulse Resp BP BP Pulse Ox 02/26/24 14:32 61 02/26/24 11:55 36.6 C 60 18 143/70 H 97 02/26/24 11:47 146/87 H 02/26/24 08:13 36.8 C 68 17 116/64 97 02/26/24 07:37 O2 Del Method O2 Flow Rate 02/26/24 14:32 02/26/24 11:55 Nasal Cannula 3 02/26/24 11:47 02/26/24 08:13 Nasal Cannula 3 02/26/24 07:37 Nasal Cannula 3 Laboratory Results 02/26/24 08:02 02/26/24 07:59 WBC 6.99 RBC 2.86 L MCV 112.6 H MCH 35.3 H MCHC 31.4 L RDW Std Deviation 77.9 H RDW Coeff of Fior 18.7 H Plt Count 144 MPV 11.9
--- NOTE | 2024-02-26 16:20 | Hospitalist Progress Note ---
Date of Service February 26, 2024 Assessment & Plan (1) Abdominal pain: (2) Diverticulitis of small bowel: (3) Enterocolitis: (4) ESRD (end stage renal disease) on dialysis: Plan Per previous hospitalist with addendum: This is a 78-year-old female who has a significant past medical history of chronic hypoxic respiratory failure on 3 L of O2, COPD, PAF off anticoagulation secondary to bleeding, mesenteric artery stenosis, HTN, mitral regurgitation, ESRD on HD, HLD, T2DM, secondary hyperparathyroidism, anemia and ESRD, hypogammaglobinemia and history of tobacco abuse who presents to ED secondary to abdominal pain. Recent admission 01/23 - 01/29 for near syncope. Seen and evaluated by cardiology. [place] possibly 2/2 labile HTN with HD, Lisinopril stopped and midodrine 3x weekly continued. She developed abd pain throughout stay and diarrhea. Stool biofire and for cdiff negative. Empirically started on oral vanco and discharged to [facility]. While at [facility] pt has been having worsening abd pain, n/v/d. Vanco increased to 250mg QID. She was borderline hypotensive and wbc climbing so sent to ED for eval. 02/12/2024: Case discussed multiple times during the day with general surgery and nephrology. General surgery requesting CTA of the abdomen pelvis given patient's persistent significant tenderness to palpation on exam. Concern for mesenteric ischemia given patient's complex medical history. Case further discussed with nephrology who advised can proceed with IV contrast for the needed CTA of the abdomen pelvis to rule out mesenteric ischemia. Later notified by nursing that patient was a "code purple" in the CT area. Patient was seen at that time by ER physician Dr. Parth Bliss who noted that she was hypotensive and in A-fib with RVR. Patient then became unresponsive and was then cardioverted at that time into sinus rhythm. she was transferred to the ICU and had a central and arterial line placed, concern for her requiring pressor support. Noted severe metabolic acidosis. She was awake and responsive to her name, eventually stating at one point that she would like to have a bowel movement. 02/13/2024- patient still ICU status. CTA abdomen pelvis noting "high grade stenosis noted at the origin of the superior and inferior mesenteric and renal arteries." Vascular surgery was consulted and recommends stenting. Patient discussing with daughter and son-in-law whether she wants to proceed with surgery. palliative care consult still pending. CT abdomen pelvis also noting improved colitis. Continue with antibiotics. Abdominal Pain Diverticulitis of the small bowel Possible persistent/recurrent c diff colitis Pt with significant leukocytosis WBC > 30K, now normalized CT noting concern for diverticulitis stool cultures negative Repeat C. difficile testing was initially not able to be obtained before treatment. Eventually obtained on 02/10 after abx treatments and was negative NPO--> transitioned to clears on 02/09/24, full liquids on 02/10/24 and low fiber diet on 02/11/24. per nursing, patient without much intake IV zosyn switched to IV Rocephin and IV Flagyl for treatment of diverticulitis, p.o. vancomycin 500mg every 6 hours also added for treatment of likely C. difficile colitis along with IV Flagyl probiotic daily consult general surg, appreciate recs -continue with full liquids as abd still sig tender to palpation -Continue abx regimen Infectious disease consulted, appreciate recs - treat with rocephin + flagyl, cont. for 10-14 days. Ok to stop vanco if c. diff negative, po vanco was discontinued continue to monitor -- still has LLQ tenderness today, although no nausea, fever monitor for now 02/22 still having LLQ pain, tenderness repeat CT abd/pelvis: 1. Persistent but improved ileus with resolved intestinal thickening. 2. Increased bilateral pleural effusions and basilar atelectasis. will request Gen Surg to re-evaluate patient 02/23 Discussed with general surgery-Dr. Purvis Recommended discussion with vascular surgery for possible earlier vascular intervention for the SMA stenosis which could be causing patient's pain Discussed with Dr. Vale Recommend to transfer to [facility] for stent placement or open bypass surgery However upon reevaluation afternoon, patient affirms that her abdominal pain is actually improving She would like to defer any type of procedure or surgery She would like to defer any consultation or transfer to tertiary level care and would like to be observed for now 02/24 having abdominal pain with meals still declines transfer/referral to tertiary level care, unsure if she would like to proceed with any procedures or surgery would like to continue monitoring symptoms for now 02/25 Pain somewhat better today Still does not wish to be transferred or referred to tertiary care level today Would like to continue monitoring Mesenteric ischemia Pt with SMA and IVANA stenosis on CTA abd/pelvis, also with exquisite tenderness to entire abd. Hx positive for post prandial pain as well as pain while eating which limits her intake, as well as some weight loss. Dr. Vale recommends pt undergo mesenteric angio with [employer]/stenting of SMA. After further discussion, it was recommended that pt would be transferred to tertiary center for the procedure - C contacted - discussed w/ vasc. surgery, gen. surgery, GI, hospitalist - pt was eventually not accepted for transfer and it was recommended that pt follows up with vasc. surgery as outpt 02/15 Abdominal pain is overall improving, WBC normalized, pt is attempting to eat 02/16- Improved oral intake, abd. pain improved/ resolved 02/20 - Pt reports nausea since last night on and off. also reports abd. pain, but LLQ pain has improved. Will cont. to monitor, check blood work including lactate. Slow down on PO intake again. Also discussed w/ palliative to cont. to be involved. 02/23 per above 02/24 management per above 02/25 management per above PAF Pt flipped from sinus rhythm to atrial fibrillation in the AM of 02/09 Per chart review appears that her amiodarone had not been given on 02/08/2024. However per chart review and discussion with nurses she did receive her dose on 02/08, 02/09 and 02/10 and 02/11 her heart rates are currently controlled continue amiodarone 200 mg daily, off oral anticoagulation due to bleeding Continue to monitor on telemetry, rate has been improving Cardiology consulted and following, appreciate their input ESRD on HD: typically T//Tue however while at [facility] is on F Nephrology following Sacral Wound Pt with stage II sacral ulcer Continue offloading as tolerated Wound consult Chronic hypoxic resp failure on 3.5L/COPD continue home inhalers Anemia of Chronic Disease hgb 11.4 on admission currently Hgb 8-9 monitor no s/sx of bleeding Chronic HFpEF, mod to severe MR volume status via HD Hx of T2DM last a1c in Mar was 5.9 5.9 on repeat this admission Thrombocytopenia Platelets have been downtrending Holding heparin for DVT prophylaxis Peripheral smear - The peripheral blood smear shows macrocytic appearing erythrocytes without significant anisopoikilocytosis. Polychromatophilic cells (a subset of reticulocytes) are noted but not markedly increased. I do not see significant numbers of schistocytes or spherocytes indicative of a hemolytic process. Leukocytes appear normal in number, relative distribution and morphology. Platelets are decreased in number and are unremarkable in appearance. I do not see any significant number of platelet clumps resulting in an artifactual thrombocytopenia.The associated CBC shows a HGB of 8.1 with high MCV and low platelets (69,000).The major findings are macrocytic anemia and thrombocytopenia. The macrocytic anemia appears to be long standing based on review of older CBC's.Besides megaloblastic anemias and MDS, macrocytosis may also be seen in association with certain medications (i.e. primarily chemotherapy drugs), alcohol usage, non-alcoholic liver disease and hypothyroidism (more commonly in elderly). Increased reticulocytes can also elevate the MCV due to their large size.Total bilirubin, B12 and folate are unremarkable. A recent TSH was normal. If clinically indicated then a reticulocyte count is suggested.No overt morphologic abnormalities, including changes of a myelodysplastic syndrome or hemolytic anemia, are seen though neither is excluded, in particular MDS given the long standing macrocytic anemia.Darinel Grossman M.D. Plt count improved - currently 100K (02/21/24) Cont. to Follow up as outpt Diet: low fiber DVT ppx: SQ Heparin on hold in setting of thrombocytopenia Dispo: Plan to DC to [facility] once medically stable Admission and Anticipated Discharge Date Admission Date: February 07, 2024 Subjective Follow-up for acute diverticulitis, SMA stenosis, etc. Seen resting in bed, comfortable not in distress States she feels better today Denies abdominal pain Not eating that much because she is afraid that she may develop abdominal pain No nausea or vomiting, fevers or chills No other new symptoms Review of Systems Review of Systems: all noted and negative except for above Physical Exam Physical Exam: General- oriented x 3, not in distress, speaks in sentences with no effort or accessory muscle use Eyes- anicteric Neck- no JVD Lungs- clear breath sounds bilaterally, no rales/wheezes Heart- normal rate, regular rhythm; no murmurs Abdomen- normal bowel sounds, nondistended, soft, nontender Extremities- no pretibial edema, no calf tenderness Neuro- alert, oriented x 3; no gross focal neurologic deficits Skin- warm & dry Results & Data Results & Data Vital Signs (Past 12 Hours) Vital Signs Temp Pulse Pulse Resp BP BP Pulse Ox 02/26/24 15:40 36.6 C 56 L 18 133/62 97 02/26/24 14:32 61 02/26/24 11:55 36.6 C 60 18 143/70 H 97 02/26/24 11:47 146/87 H 02/26/24 08:13 36.8 C 68 17 116/64 97 02/26/24 07:37 O2 Del Method O2 Flow Rate 02/26/24 15:40 Nasal Cannula 3 02/26/24 14:32 02/26/24 11:55 Nasal Cannula 3 02/26/24 11:47 02/26/24 08:13 Nasal Cannula 3 02/26/24 07:37 Nasal Cannula 3 all noted and reviewed including below
[2024-02-27] MEDS: HEPARIN SOD (PORCINE) 1000 UNIT/ML IV ONE (10:19)
[2024-02-27] MEDS: HEPARIN SOD (PORCINE) 1000 UNIT/ML IV SCH (10:19)
--- NOTE | 2024-02-27 11:30 | Dialysis Progress Note ---
Date of Service February 27, 2024 Assessment & Plan (1) ESRD on hemodialysis: Plan: For dialysis Tuesday using left upper arm AV fistula. Electrolytes remain stable today and no signs of volume overload. She tolerated dialysis well on Tuesday for 3-1/2 hours target UF 1 L. tolerating dialysis today w/ target 1L UF well over 3-1/2 hours next HD 02/28 or as needs dictate (2) Mesenteric ischemia: Plan: vascular suggests mesenteric angio w/ SMA stent initially but w/ concerns for anatomy of lesions and anemia trends and obligate plavix post stent. transfer to tertiary care declined by tertiary center -high risk surgery even endovascular but no other prospects for relief/symptom mgt - continue supportive management (3) Atrial fibrillation with rapid ventricular response: Plan: s/p cardioversion; rate controlled now >>maintain mag of 2 and K of 4 Admission and Anticipated Discharge Date Admission Date: February 07, 2024 Subjective still weak; ongoing diarrhea and abd pain. no sob, no cramps; marked generalized weakness. seen and evaluated on hd Review of Systems 2 Review of Systems: All systems reviewed & are unremarkable except as noted in Subjective Physical Exam 2 Constitutional: well developed, + thin, + frail appearing and cooperative; no acute distress ENMT: Mouth: + dry oral mucous membranes Respiratory: normal respiratory effort Auscultation: + diminished lung sounds Cardiovascular: Rate/Rhythm: regular rate and regular rhythm Extremities: + AV fistula; no edema Musculoskeletal: Extremities: strength 5/5 throughout Skin: no rashes, warm and dry Results & Data Vital Signs (Past 12 Hours) Vital Signs Temp Pulse Pulse Pulse Resp BP BP 02/27/24 11:00 54 L 112/46 L 02/27/24 10:30 69 142/63 H 02/27/24 10:00 58 L 137/52 L 02/27/24 09:30 57 L 138/56 L 02/27/24 09:15 36.5 C 58 L 02/27/24 08:33 02/27/24 07:00 36.7 C 67 22 123/59 L 02/27/24 04:02 36.6 C 64 20 02/26/24 23:33 36.9 C 78 20 BP Pulse Ox O2 Del Method O2 Flow Rate 02/27/24 11:00 02/27/24 10:30 02/27/24 10:00 02/27/24 09:30 02/27/24 09:15 02/27/24 08:33 Nasal Cannula 3 02/27/24 07:00 93 Nasal Cannula 3 02/27/24 04:02 130/60 94 Nasal Cannula 3 02/26/24 23:33 138/88 93 Room Air Laboratory Results 02/26/24 07:59 02/26/24 08:02
--- NOTE | 2024-02-27 19:07 | Hospitalist Progress Note ---
Date of Service February 27, 2024 delayed entry date of service noted above Assessment & Plan (1) Abdominal pain: (2) Diverticulitis of small bowel: (3) Enterocolitis: (4) ESRD (end stage renal disease) on dialysis: Plan Per previous hospitalist with addendum: This is a 78-year-old female who has a significant past medical history of chronic hypoxic respiratory failure on 3 L of O2, COPD, PAF off anticoagulation secondary to bleeding, mesenteric artery stenosis, HTN, mitral regurgitation, ESRD on HD, HLD, T2DM, secondary hyperparathyroidism, anemia and ESRD, hypogammaglobinemia and history of tobacco abuse who presents to ED secondary to abdominal pain. Recent admission 01/23 - 01/29 for near syncope. Seen and evaluated by cardiology. [place] possibly 2/2 labile HTN with HD, Lisinopril stopped and midodrine 3x weekly continued. She developed abd pain throughout stay and diarrhea. Stool biofire and for cdiff negative. Empirically started on oral vanco and discharged to [facility]. While at [facility] pt has been having worsening abd pain, n/v/d. Vanco increased to 250mg QID. She was borderline hypotensive and wbc climbing so sent to ED for eval. 02/12/2024: Case discussed multiple times during the day with general surgery and nephrology. General surgery requesting CTA of the abdomen pelvis given patient's persistent significant tenderness to palpation on exam. Concern for mesenteric ischemia given patient's complex medical history. Case further discussed with nephrology who advised can proceed with IV contrast for the needed CTA of the abdomen pelvis to rule out mesenteric ischemia. Later notified by nursing that patient was a "code purple" in the CT area. Patient was seen at that time by ER physician Dr. Parth Bliss who noted that she was hypotensive and in A-fib with RVR. Patient then became unresponsive and was then cardioverted at that time into sinus rhythm. she was transferred to the ICU and had a central and arterial line placed, concern for her requiring pressor support. Noted severe metabolic acidosis. She was awake and responsive to her name, eventually stating at one point that she would like to have a bowel movement. 02/13/2024- patient still ICU status. CTA abdomen pelvis noting "high grade stenosis noted at the origin of the superior and inferior mesenteric and renal arteries." Vascular surgery was consulted and recommends stenting. Patient discussing with daughter and son-in-law whether she wants to proceed with surgery. palliative care consult still pending. CT abdomen pelvis also noting improved colitis. Continue with antibiotics. Abdominal Pain Diverticulitis of the small bowel Possible persistent/recurrent c diff colitis Pt with significant leukocytosis WBC > 30K, now normalized CT noting concern for diverticulitis stool cultures negative Repeat C. difficile testing was initially not able to be obtained before treatment. Eventually obtained on 02/10 after abx treatments and was negative NPO--> transitioned to clears on 02/09/24, full liquids on 02/10/24 and low fiber diet on 02/11/24. per nursing, patient without much intake IV zosyn switched to IV Rocephin and IV Flagyl for treatment of diverticulitis, p.o. vancomycin 500mg every 6 hours also added for treatment of likely C. difficile colitis along with IV Flagyl probiotic daily consult general surg, appreciate recs -continue with full liquids as abd still sig tender to palpation -Continue abx regimen Infectious disease consulted, appreciate recs - treat with rocephin + flagyl, cont. for 10-14 days. Ok to stop vanco if c. diff negative, po vanco was discontinued continue to monitor -- still has LLQ tenderness today, although no nausea, fever monitor for now 02/22 still having LLQ pain, tenderness repeat CT abd/pelvis: 1. Persistent but improved ileus with resolved intestinal thickening. 2. Increased bilateral pleural effusions and basilar atelectasis. will request Gen Surg to re-evaluate patient 02/23 Discussed with general surgery-Dr. Purvis Recommended discussion with vascular surgery for possible earlier vascular intervention for the SMA stenosis which could be causing patient's pain Discussed with Dr. Vale Recommend to transfer to [facility] for stent placement or open bypass surgery However upon reevaluation afternoon, patient affirms that her abdominal pain is actually improving She would like to defer any type of procedure or surgery She would like to defer any consultation or transfer to tertiary level care and would like to be observed for now 02/24 having abdominal pain with meals still declines transfer/referral to tertiary level care, unsure if she would like to proceed with any procedures or surgery would like to continue monitoring symptoms for now 02/25 Pain somewhat better today Still does not wish to be transferred or referred to tertiary care level today Would like to continue monitoring 02/26 pain manageable continue to monitor Mesenteric ischemia Pt with SMA and IVANA stenosis on CTA abd/pelvis, also with exquisite tenderness to entire abd. Hx positive for post prandial pain as well as pain while eating which limits her intake, as well as some weight loss. Dr. Vale recommends pt undergo mesenteric angio with WILDLIFE ECOLOGIST/stenting of SMA. After further discussion, it was recommended that pt would be transferred to tertiary center for the procedure - C contacted - discussed w/ vasc. surgery, gen. surgery, GI, hospitalist - pt was eventually not accepted for transfer and it was recommended that pt follows up with vasc. surgery as outpt 02/15 Abdominal pain is overall improving, WBC normalized, pt is attempting to eat 02/16- Improved oral intake, abd. pain improved/ resolved 02/20 - Pt reports nausea since last night on and off. also reports abd. pain, but LLQ pain has improved. Will cont. to monitor, check blood work including la ctate. Slow down on PO intake again. Also discussed w/ palliative to cont. to be involved. 02/23 per above 02/24 management per above 02/26 management per above PAF Pt flipped from sinus rhythm to atrial fibrillation in the AM of 02/09 Per chart review appears that her amiodarone had not been given on 02/08/2024. However per chart review and discussion with nurses she did receive her dose on 02/08, 02/09 and 02/10 and 02/11 her heart rates are currently controlled continue amiodarone 200 mg daily, off oral anticoagulation due to bleeding Continue to monitor on telemetry, rate has been improving Cardiology consulted and following, appreciate their input ESRD on HD: typically T//Sat however while at [facility] is on F Nephrology following Sacral Wound Pt with stage II sacral ulcer Continue offloading as tolerated Wound consult Chronic hypoxic resp failure on 3.5L/COPD continue home inhalers Anemia of Chronic Disease hgb 11.4 on admission currently Hgb 8-9 monitor no s/sx of bleeding Chronic HFpEF, mod to severe MR volume status via HD Hx of T2DM last a1c in Mar was 5.9 5.9 on repeat this admission Thrombocytopenia Platelets have been downtrending Holding heparin for DVT prophylaxis Peripheral smear - The peripheral blood smear shows macrocytic appearing erythrocytes without significant anisopoikilocytosis. Polychromatophilic cells (a subset of reticulocytes) are noted but not markedly increased. I do not see significant numbers of schistocytes or spherocytes indicative of a hemolytic process. Leukocytes appear normal in number, relative distribution and morphology. Platelets are decreased in number and are unremarkable in appearance. I do not see any significant number of platelet clumps resulting in an artifactual thrombocytopenia.The associated CBC shows a HGB of 8.1 with high MCV and low platelets (69,000).The major findings are macrocytic anemia and thrombocyt openia. The macrocytic anemia appears to be long standing based on review of older CBC's.Besides megaloblastic anemias and MDS, macrocytosis may also be seen in association with certain medications (i.e. primarily chemotherapy drugs), alcohol usage, non-alcoholic liver disease and hypothyroidism (more commonly in elderly). Increased reticulocytes can also elevate the MCV due to their large size.Total bilirubin, B12 and folate are unremarkable. A recent TSH was normal. If clinically indicated then a reticulocyte count is suggested.No overt morphologic abnormalities, including changes of a myelodysplastic syndrome or hemolytic anemia, are seen though neither is excluded, in particular MDS given the long standing macrocytic anemia.Darniel Grossman M.D. Plt count improved - currently 100K (02/21/24) Cont. to Follow up as outpt Diet: low fiber DVT ppx: SQ Heparin on hold in setting of thrombocytopenia Dispo: Plan to DC to [facility] once medically stable Admission and Anticipated Discharge Date Admission Date: February 07, 2024 Subjective resting in bed, comfortable feels ok has some abdominal pain with meals, manageable as per patient no other new symptoms Review of Systems Review of Systems: all noted and negative except for above Physical Exam Physical Exam: General- oriented x 3, not in distress, speaks in sentences with no effort or accessory muscle use Eyes- anicteric Neck- no JVD Lungs- clear breath sounds bilaterally, no rales/wheezes Heart- normal rate, regular rhythm; no murmurs Abdomen- normal bowel sounds, nondistended, soft, mild LLQ tenderness Extremities- no pretibial edema, no calf tenderness Neuro- alert, oriented x 3; no gross focal neurologic deficits Skin- warm & dry Results & Data Results & Data Vital Signs (Past 12 Hours) Vital Signs Temp Pulse Pulse Pulse Resp BP BP 02/27/24 15:47 82 02/27/24 13:16 36.8 C 120 H 20 109/55 L 02/27/24 12:55 36.4 C L 102 H 125/57 L 02/27/24 12:30 82 116/97 02/27/24 12:00 115 H 119/56 L 02/27/24 11:30 100 H 105/53 L 02/27/24 11:00 54 L 112/46 L 02/27/24 10:30 69 142/63 H 02/27/24 10:00 58 L 137/52 L 02/27/24 09:30 57 L 138/56 L 02/27/24 09:15 36.5 C 58 L 02/27/24 08:33 Pulse Ox O2 Del Method O2 Flow Rate 02/27/24 15:47 02/27/24 13:16 96 Room Air 02/27/24 12:55 02/27/24 12:30 02/27/24 12:00 02/27/24 11:30 02/27/24 11:00 02/27/24 10:30 02/27/24 10:00 02/27/24 09:30 02/27/24 09:15 02/27/24 08:33 Nasal Cannula 3 all noted and reviewed including below
--- NOTE | 2024-02-28 11:23 | Nephrology Progress Note ---
Date of Service February 28, 2024 Assessment & Plan (1) ESRD on hemodialysis: Plan: For dialysis Tuesday using left upper arm AV fistula. Electrolytes remain stable, no signs of volume overload. She tolerated dialysis well on Tuesday for 3-1/2 hours target UF 1 L, also did wel on 02/25 same profile though did have AF w/RVR . next HD 02/28 > 3.5 hr w/ 1 L UF; heparin 2K bolus only; epo 4K units >> orders in; bmp, hgb, mag also ordered for am (2) Mesenteric ischemia: Plan: vascular suggests mesenteric angio w/ SMA stent initially but w/ concerns for anatomy of lesions and anemia trends and obligate plavix post stent. transfer to tertiary care declined by [facility]; [facility] transfer under consideration but pt to date declining -high risk surgery even endovascular but no other prospects for relief/symptom mgt - continue supportive management (3) Atrial fibrillation with rapid ventricular response: Plan: s/p cardioversion; rate controlled now >>maintain mag of 2 and K of 4 > order in for mag in am Admission and Anticipated Discharge Date Admission Date: February 07, 2024 Subjective had some AF w/ RVR late in tx yesterday w/o sx. tolerated 1L off. abd pain controlled " as long as I don't eat;" tolerating boost. butt sore most bothersome to her Review of Systems 2 Review of Systems: All systems reviewed & are unremarkable except as noted in Subjective Physical Exam 2 Constitutional: well developed, + thin, + frail appearing and cooperative; no acute distress ENMT: Mouth: + dry oral mucous membranes Respiratory: normal respiratory effort Auscultation: + diminished lung sounds Cardiovascular: Rate/Rhythm: + irregularly irregular Extremities: + AV fistula; no edema Gastrointestinal (Abdomen): Inspection/Auscultation: normal bowel sounds Musculoskeletal: Extremities: strength 5/5 throughout Skin: no rashes, warm and dry Results & Data Vital Signs (Past 12 Hours) Vital Signs Temp Pulse Pulse Resp BP BP Pulse Ox 02/28/24 09:25 02/28/24 07:40 36.5 C 101 H 18 100/58 L 91 02/28/24 03:31 36.7 C 94 H 18 100/70 94 02/28/24 00:44 93 H O2 Del Method O2 Flow Rate 02/28/24 09:25 Nasal Cannula 3 12/03/24 07:40 Nasal Cannula 3 02/28/24 03:31 Nasal Cannula 2 02/28/24 00:44 Laboratory Results 02/26/24 07:59 02/26/24 08:02
--- NOTE | 2024-02-28 12:52 | CT Scan Report ---
CT OF THE HEAD WITHOUT CONTRAST CLINICAL HISTORY: Diplopia. COMPARISON STUDY: Head CT May 12, 2022. CT DOSE: 547.75 mGy.cm TECHNIQUE: Helical axial images of the head were obtained without IV contrast. Automated exposure con trol was utilized for the study. A dose lowering technique was utilized adhering to the principles o f ALARA. FINDINGS: No acute intracranial hemorrhage, midline shift or mass effect is present. White matter hyp odense foci are similar to prior exam and favor small vessel disease. The ventricular system is unrem arkable. The basal cisterns are patent. No extra-axial collections are present. There are no findings to suggest acute dural sinus thrombosis or acute territorial infarct. No significant calvarial abnor malities are present. Right maxillary sinus mucous retention cyst is partially imaged. IMPRESSION: No acute intracranial findings. ACT 112: Negative or not required by law. Electronically signed by: Vicente Tapia M.D. 02/28/2024 12:51 PM
[2024-02-28 20:51] VITALS: RESP 18
--- NOTE | 2024-02-28 23:57 | Hospitalist Progress Note ---
Date of Service February 28, 2024 Assessment & Plan (1) Abdominal pain: (2) Diverticulitis of small bowel: (3) Enterocolitis: (4) ESRD (end stage renal disease) on dialysis: Plan Per previous hospitalist with addendum: This is a 78-year-old female who has a significant past medical history of chronic hypoxic respiratory failure on 3 L of O2, COPD, PAF off anticoagulation secondary to bleeding, mesenteric artery stenosis, HTN, mitral regurgitation, ESRD on HD, HLD, T2DM, secondary hyperparathyroidism, anemia and ESRD, hypogammaglobinemia and history of tobacco abuse who presents to ED secondary to abdominal pain. Recent admission 01/23 - 01/29 for near syncope. Seen and evaluated by cardiology. [place] possibly 2/2 labile HTN with HD, Lisinopril stopped and midodrine 3x weekly continued. She developed abd pain throughout stay and diarrhea. Stool biofire and for cdiff negative. Empirically started on oral vanco and discharged to [facility]. While at [facility] pt has been having worsening abd pain, n/v/d. Vanco increased to 250mg QID. She was borderline hypotensive and wbc climbing so sent to ED for eval. 02/12/2024: Case discussed multiple times during the day with general surgery and nephrology. General surgery requesting CTA of the abdomen pelvis given patient's persistent significant tenderness to palpation on exam. Concern for mesenteric ischemia given patient's complex medical history. Case further discussed with nephrology who advised can proceed with IV contrast for the needed CTA of the abdomen pelvis to rule out mesenteric ischemia. Later notified by nursing that patient was a "code purple" in the CT area. Patient was seen at that time by ER physician Dr. Parth Bliss who noted that she was hypotensive and in A-fib with RVR. Patient then became unresponsive and was then cardioverted at that time into sinus rhythm. she was transferred to the ICU and had a central and arterial line placed, concern for her requiring pressor support. Noted severe metabolic acidosis. She was awake and responsive to her name, eventually stating at one point that she would like to have a bowel movement. 02/13/2024- patient still ICU status. CTA abdomen pelvis noting "high grade stenosis noted at the origin of the superior and inferior mesenteric and renal arteries." Vascular surgery was consulted and recommends stenting. Patient discussing with daughter and son-in-law whether she wants to proceed with surgery. palliative care consult still pending. CT abdomen pelvis also noting improved colitis. Continue with antibiotics. Abdominal Pain Diverticulitis of the small bowel Possible persistent/recurrent c diff colitis Pt with significant leukocytosis WBC > 30K, now normalized CT noting concern for diverticulitis stool cultures negative Repeat C. difficile testing was initially not able to be obtained before treatment. Eventually obtained on 02/10 after abx treatments and was negative NPO--> transitioned to clears on 02/09/24, full liquids on 02/10/24 and low fiber diet on 02/11/24. per nursing, patient without much intake IV zosyn switched to IV Rocephin and IV Flagyl for treatment of diverticulitis, p.o. vancomycin 500mg every 6 hours also added for treatment of likely C. difficile colitis along with IV Flagyl probiotic daily consult general surg, appreciate recs -continue with full liquids as abd still sig tender to palpation -Continue abx regimen Infectious disease consulted, appreciate recs - treat with rocephin + flagyl, cont. for 10-14 days. Ok to stop vanco if c. diff negative, po vanco was discontinued continue to monitor -- still has LLQ tenderness today, although no nausea, fever monitor for now 02/22 still having LLQ pain, tenderness repeat CT abd/pelvis: 1. Persistent but improved ileus with resolved intestinal thickening. 2. Increased bilateral pleural effusions and basilar atelectasis. will request Gen Surg to re-evaluate patient 02/23 Discussed with general surgery-Dr. Purvis Recommended discussion with vascular surgery for possible earlier vascular intervention for the SMA stenosis which could be causing patient's pain Discussed with Dr. Vale Recommend to transfer to [facility] for stent placement or open bypass surgery However upon reevaluation afternoon, patient affirms that her abdominal pain is actually improving She would like to defer any type of procedure or surgery She would like to defer any consultation or transfer to tertiary level care and would like to be observed for now 12/3 having abdominal pain with meals--> stable still declines transfer/referral to tertiary level care, unsure if she would like to proceed with any procedures or surgery would like to continue monitoring symptoms for now Mesenteric ischemia Pt with SMA and IVANA stenosis on CTA abd/pelvis, also with exquisite tenderness to entire abd. Hx positive for post prandial pain as well as pain while eating which limits her intake, as well as some weight loss. Dr. Vale recommends pt undergo mesenteric angio with AIR CONDITIONING SUPERVISOR/stenting of SMA. After further discussion, it was recommended that pt would be transferred to tertiary center for the procedure - C contacted - discussed w/ vasc. surgery, gen. surgery, GI, hospitalist - pt was eventually not accepted for transfer and it was recommended that pt follows up with vasc. surgery as outpt 02/15 Abdominal pain is overall improving, WBC normalized, pt is attempting to eat 02/16- Improved oral intake, abd. pain improved/ resolved 02/27 management per above PAF Pt flipped from sinus rhythm to atrial fibrillation in the AM of 02/09 Per chart review appears that her amiodarone had not been given on 02/08/2024. However per chart review and discussion with nurses she did receive her dose on 02/08, 02/09 and 02/10 and 02/11 her heart rates are currently controlled continue amiodarone 200 mg daily, off oral anticoagulation due to bleeding Continue to monitor on telemetry, rate has been improving Cardiology consulted and following, appreciate their input 02/27 (+) diplopia episode, [address] head: negative reports intermittent diplopia even as outpatient monitor ESRD on HD: typically T//Tue however while at [facility] is on MWF Nephrology following Sacral Wound Pt with stage II sacral ulcer Continue offloading as tolerated Wound consult Chronic hypoxic resp failure on 3.5L/COPD continue home inhalers Anemia of Chronic Disease hgb 11.4 on admission currently Hgb 8-9 monitor no s/sx of bleeding Chronic HFpEF, mod to severe MR volume status via HD Hx of T2DM last a1c in Mar was 5.9 5.9 on repeat this admission Thrombocytopenia Platelets have been downtrending Holding heparin for DVT prophylaxis Peripheral smear - The peripheral blood smear shows macrocytic appearing erythrocytes without significant anisopoikilocytosis. Polychromatophilic cells (a subset of reticulocytes) are noted but not markedly increased. I do not see significant numbers of schistocytes or spherocytes indicative of a hemolytic process. Leukocytes appear normal in number, relative distribution and morphology. Platelets are decreased in number and are unremarkable in appearance. I do not see any significant number of platelet clumps resulting in an artifactual thrombocytopenia.The associated CBC shows a HGB of 8.1 with high MCV and low platelets (69,000).The major findings are macrocytic anemia and thrombocytopenia. The macrocytic anemia appears to be long standing based on review of older CBC's.Besides megaloblastic anemias and MDS, macrocytosis may also be seen in association with certain medications (i.e. primarily chemotherapy drugs), alcohol usage, non-alcoholic liver disease and hypothyroidism (more commonly in elderly). Increased reticulocytes can also elevate the MCV due to their large size.Total bilirubin, B12 and folate are unremarkable. A recent TSH was normal. If clinically indicated then a reticulocyte count is suggested.No overt morphologic abnormalities, including changes of a myelodysplastic syndrome or hemolytic anemia, are seen though neither is excluded, in particular MDS given the long standing macrocytic anemia.Darinel Grossman M.D. Plt count improved - currently 100K (02/21/24) Cont. to Follow up as outpt Diet: low fiber DVT ppx: SQ Heparin on hold in setting of thrombocytopenia Dispo: Plan to DC to [facility] once medically stable Admission and Anticipated Discharge Date Admission Date: February 07, 2024 Subjective ff up for acute diverticulitis, high grade SMA stenosis, etc seen resting in bed, comfortable had an episode of diplopia earlier, lasting 5 minutes states she has intermittent episodes of above before no other focal neuro symptoms abdominal pain seems to be improving eating about 50% of meals no other symptoms Review of Systems Review of Systems: all noted and negative except for above Physical Exam Physical Exam: General- oriented x 3, not in distress, speaks in sentences with no effort or accessory muscle use Eyes- anicteric Neck- no JVD Lungs- clear breath sounds bilaterally, no rales/wheezes Heart- normal rate, regular rhythm; no murmurs Abdomen- normal bowel sounds, nondistended, soft, no tenderness Extremities- no pretibial edema, no calf tenderness Neuro- alert, oriented x 3; no gross focal neurologic deficits Skin- warm & dry Results & Data Results & Data Vital Signs (Past 12 Hours) Vital Signs Temp Pulse Resp BP BP Pulse Ox O2 Del Method 02/28/24 23:17 36.8 C 78 18 120/78 92 Nasal Cannula 02/28/24 20:49 36.7 C 122 H 18 116/57 L 94 Room Air 02/28/24 20:00 Nasal Cannula 02/28/24 16:35 Nasal Cannula 02/28/24 16:22 36.7 C 101 H 20 114/71 96 Nasal Cannula 02/28/24 11:59 36.7 C 69 17 105/63 99 Nasal Cannula O2 Flow Rate 02/28/24 23:17 2 02/28/24 20:49 02/28/24 20:00 3 02/28/24 16:35 3 02/28/24 16:22 3 02/28/24 11:59 3 all noted and reviewed including below
[2024-02-29] MEDS ORDERED: EPOETIN ALFA 4,000 UNIT/ML VIAL IV ONE (07:00)
[2024-02-29] MEDS ORDERED: EPOETIN ALFA 4,000 UNITS in SYRINGE 0 ML IV ONE (07:00)
[2024-02-29 07:11] VITALS: O2SAT 93
[2024-02-29] MEDS: LIDOCAINE 4% CREAM 15 GM TUBE EXT PRN (08:00)
[2024-02-29 08:33] LABS: BUN Creatinine Ratio 3.2 (10-20); Calcium 8.3 mg/dl (8.6-10.3); Creatinine Clr Calc Pharmacy 8.8 ml/min; Magnesium 1.7 mg/dl (1.7-2.4); Potassium 3.8 mmol/L (3.5-5.1)
[2024-02-29] MEDS: HEPARIN SOD (PORCINE) 1000 UNIT/ML IV ONE (09:00)
[2024-02-29] MEDS: EPOETIN ALFA 4,000 UNIT/ML VIAL IV ONE (10:30)
--- NOTE | 2024-02-29 12:09 | Dialysis Progress Note ---
Date of Service February 29, 2024 Assessment & Plan (1) ESRD on hemodialysis: Plan: For dialysis Tuesday using left upper arm AV fistula. Electrolytes remain stable, no signs of volume overload. She tolerated dialysis well on Tuesday for 3-1/2 hours target UF 1 L, also did well on 02/26 same profile though did have AF w/RVR at end of tx w/ mild sx. doing well on HD today > asking to shorten tx by 15 min and since she's hardly eating we can do this > -3--.-5- now 3.25 hr w/ 1 L UF; heparin 2K bolus only; epo 4K units continue current routine > next tx 03/02, presumably at [facility] (2) Mesenteric ischemia: Plan: vascular suggests mesenteric angio w/ SMA stent initially but w/ concerns for anatomy of lesions and anemia trends and obligate plavix post stent. transfer to tertiary care declined by [facility] [place]; [facility] [place] transfer under consideration but pt to date declining -high risk surgery even endovascular but no other prospects for relief/symptom mgt -continue supportive care (3) Atrial fibrillation with rapid ventricular response: Plan: s/p cardioversion; rate controlled now >>maintain mag of 2 and K of 4; mag today 1.7 Admission and Anticipated Discharge Date Admission Date: February 07, 2024 Subjective seen and evaluated on dialysis. tolerating treatment well; still w/ intermittent abdominal pain. for d/c to [facility] next 1-2 days Review of Systems 2 Review of Systems: All systems reviewed & are unremarkable except as noted in Subjective Physical Exam 2 Constitutional: well developed, + thin, + frail appearing and cooperative; no acute distress ENMT: Mouth: + dry oral mucous membranes Respiratory: normal respiratory effort Auscultation: + diminished lung sounds Cardiovascular: Rate/Rhythm: regular rate, regular rhythm and + irregularly irregular Extremities: + AV fistula; no edema Musculoskeletal: Extremities: strength 5/5 throughout Skin: no rashes, warm and dry Psychiatric: Orientation: alert and oriented x 3 Results & Data Vital Signs (Past 12 Hours) Vital Signs Temp Pulse Pulse Pulse Resp BP BP 02/29/24 11:05 90 02/29/24 10:30 104 H 104/60 02/29/24 10:00 102 H 114/63 02/29/24 09:30 107 H 101/73 02/29/24 09:00 103 H 114/64 02/29/24 08:53 85 90/58 L 02/29/24 08:47 36.8 C 85 02/29/24 07:39 02/29/24 07:11 36.5 C 103 H 18 113/54 L 02/29/24 03:08 36.7 C 69 18 119/68 Pulse Ox O2 Del Method O2 Flow Rate 02/29/24 11:05 02/29/24 10:30 02/29/24 10:00 02/29/24 09:30 02/29/24 09:00 02/29/24 08:53 02/29/24 08:47 02/29/24 07:39 Nasal Cannula 3 02/29/24 07:11 93 Nasal Cannula 3 02/29/24 03:08 95 Nasal Cannula 3 Laboratory Results 02/29/24 07:45 02/29/24 07:45
--- NOTE | 2024-02-29 12:36 | Discharge Summary ---
Discharge Summary Date of Service February 29, 2024 Principal Dx & Hospital Course #1 = Principal Diagnosis (1) Mesenteric ischemia: (2) Superior mesenteric artery stenosis: (3) Diverticulitis of small bowel: (4) Enterocolitis: (5) ESRD (end stage renal disease) on dialysis: (6) On home oxygen therapy: (7) Chronic respiratory failure with hypoxia, on home O2 therapy: (8) Paroxysmal atrial fibrillation: Plan Patient is 78-year-old female who was admitted to the hospital from [facility]. She has had a very prolonged and protracted hospitalization. Initially admitted for ongoing abdominal pain. She was treated for diverticulitis and enterocolitis and possibly even C. difficile colitis. She was given antibiotics for all of these. Patient continued to have abdominal pain. After clearance with nephrology patient underwent CTA of the abdomen which showed significant SMA stenosis. Symptoms consistent with mesenteric ischemia. General surgery and vascular surgery was involved in her care. As they are evaluating her patient had significant decompensation in her condition was transferred to the ICU. Hypotension and A-fib with rapid ventricular sponsor. Cardiology was involved in her care and continued with amiodarone treatment. She is not anticoagulated due to her recurrent bleeding. Her atrial fibrillation is then spontaneously converted to sinus rhythm and she remained in sinus rhythm. Discussions with the patient about intervention on her superior mesenteric artery stenosis. There was discussion of possibly transferred to a tertiary center for intervention and stenting. Patient was unsure that she wanted to undergo any procedures. Eventually extensive conversation occurred with transfer service with [facility] and vascular surgery at [facility]. With the patient's hesitancy to go undergo any procedures and the fact that she is not having acute ischemic bowel it was determined that she could pursue outpatient vascular surgery if she wanted to pursue any procedures. The rest of her hospitalization she continued with her usual hemodialysis. Wound care was provided for sacral wound. She completed all her antibiotics while here in the hospital. Patient continued to have abdominal pain intermittently which is consistent with her stenosis. She will have this indefinitely unless she does have her vasculature improved to her mesentery. The day of discharge she was tolerating her hemodialysis. Her midodrine had been dosed now 3 times daily instead of just on hemodialysis days to manage her chronic orthostasis. Other vital signs are stable. Hemoglobin is stable she has chronic anemia associated with her end-stage renal disease. Verbal signout was given to Dr. Hayes at [facility] and she will resume her care there. Notes For Next Care Provider Recommend small frequent meals to avoid a significant boluses may increase her issues with ischemia to the mesentery Continue hemodialysis per her usual schedule Continue wound care for sacral wound Continue therapies Medication Changes From Visit Midodrine added 3 times daily increased from just on hemodialysis days Admission HPI Per Admitting Provider This is a 78-year-old female who has a significant past medical history of chronic hypoxic respiratory failure on 3 L of O2, COPD, PAF off anticoagulation secondary to bleeding, mesenteric artery stenosis, HTN, mitral regurgitation, ESRD on HD, HLD, T2DM, secondary hyperparathyroidism, anemia and ESRD, hypogammaglobinemia and history of tobacco abuse who presents to ED secondary to abdominal pain. of significance patient was recently hospitalized 01/23 to 01/29 secondary to generalized weakness, presyncope and abdominal pain. She underwent echocardiogram which revealed a preserved EF at 60 to 65%, left atrium moderately dilated, moderate to severe mitral regurg. Telemetry revealed sinus bradycardia but no overt arrhythmias. Cardiology saw the patient and it was noted she has had a long standing history of labile HTN with HD. Her lisinopril was then stopped and she continued her 3xwk midodrine. She received hemodialysis throughout hospital stay. She also had abdominal pain and diarrhea throughout her hospitalization. Her stool PCR was negative for infection and C. difficile was negative as well. She was seen and evaluated by general surgery. There was concern about possible transient ischemic bowel due to hypotension versus colitis. She was started on empiric vancomycin despite negative cdiff. Her lisinopril was Discontinue due to lower blood pressure. She was discharged to [facility] rehab. Since being at rehab she feels as if she was get ting stronger until today. She states over the last few days her abd pain as become constant and is diffuse. Nothing makes it better and is made worse with eating. She has been having n/v and diarrhea. She denies melena or hematochezia. She does not make any urine. She denies f/c/s, chest pain. She is chronically SOB. She continues to feel as if she could pass out at times, but denies true syncope. In ED pt was found to have leukocytosis with wbc 27k, h/h 11.4 and 34.7, bun 39, cr 6.16 [address] of 2.54. [address] a/p concerning for SB diverticulitis. At rehab they recently increased her vancomycin to 250mg QID. Admission Exam Per Admitting Provider See H&P Discharge Exam Constitutional: Alert, frail, weak HEENT: Mucous membranes moist. Central line and right neck Lungs: Clear to auscultation, decreased, no wheezes rales or rhonchi CV: S1-S2, regular Abdomen: Soft, nontender, nondistended Extremities: No significant edema Neuro: No focal deficits, generalized weakness Psych: Cooperative, normal mood Updated Medication List Medication Instructions Recorded Confirmed Type ipratropium 0.5 mg-albuterol 3 mg 3 ml inhalation QID PRN Shortness 09/26/18 02/07/24 History (2.5 mg base)/3 mL nebulization Of Breath soln vitamin B complex-vitamin C-folic 1 tab PO QAM 09/26/18 02/07/24 History acid 0.8 mg tablet (Arabella-Tika) fluticasone propionate 50 2 spray intranasal HS 01/18/19 02/07/24 History mcg/actuation nasal spray,suspension albuterol sulfate 90 mcg/actuation 2 puff inhalation Q4H PRN Wheezing 04/05/19 02/07/24 History aerosol inhaler acetaminophen 325 mg tablet 650 mg PO Q6H PRN Pain 04/14/21 02/07/24 History (Tylenol) camphor-menthol 0.5 %-0.5 % lotion 1 applic topical DIRECTED PRN 04/14/21 02/07/24 History Itching epoetin gabriel 10,000 unit/mL 0 unit IV DIRECTED 04/14/21 02/07/24 History injection solution (Procrit) lidocaine-prilocaine 2.5 %-2.5 % 1 applic topical DIRECTED PRN 04/14/21 02/07/24 History topical cream PRIOR TO DIALYSIS loperamide 2 mg capsule (Imodium 2 mg PO QID PRN Diarrhea 04/14/21 02/07/24 History A-D) valacyclovir 1 gram tablet 1,000 mg PO QAM 04/14/21 02/07/24 History fluorometholone 0.1 % eye 1 drp OPL QAM 01/25/22 02/07/24 History drops,suspension amiodarone 200 mg tablet 200 mg PO DAILY 30 days #60 tabs 05/12/22 02/07/24 Rx docusate sodium 100 mg capsule 100 mg PO BID PRN Constipation 04/01/23 02/07/24 History (Colace) fluticasone furoate 200 1 inh inhalation DAILY 04/01/23 02/07/24 History mcg-vilanterol 25 mcg/dose inhalation powder (Breo Ellipta) midodrine 2.5 mg tablet 2.5 mg PO 3XWK 12/31/23 02/07/24 History lanthanum 500 mg chewable tablet 500 mg PO UD 01/24/24 02/07/24 History sevelamer carbonate 800 mg tablet 1,600 mg PO UD 01/24/24 02/07/24 History (Renvela) vancomycin 1,000 mg intravenous 250 mg PO Q6 02/07/24 02/07/24 History injection L.acidop,casei,lactis,rham-B.lact,amos 1 cap PO DAILY #30 caps 02/29/24 Rx 625 mg (10 billion cell) capsule (Advanced Probiotic) midodrine 2.5 mg tablet 2.5 mg PO TID@0800,1200,1700 #90 02/29/24 Rx tabs pantoprazole 40 mg tablet,delayed 40 mg PO QAM #30 tabs 02/29/24 Rx release Hospital Stay Data Consultations 02/07/24 16:05 ED Decision to Admit Stat 02/07/24 16:12 Consult Nephrology Routine 02/07/24 16:20 Consult General Surgery Routine 02/08/24 09:14 Consult Infectious Diseases Routine 02/12/24 12:59 Consult Cardiology Stat 02/12/24 13:11 Consult Release Of Information Specialist Routine 02/12/24 14:24 Consult Palliative Care Routine 02/13/24 11:06 Consult Vascular Surgery Routine Procedures Performed Operation Date: 02/15/24 13:00 <No data on this case meets the specified criteria> Diagnostic Imagining Performed 02/07/24 13:22 CT abd pelvis wo con Stat 02/12/24 10:48 CTA abdomen pelvis w con [CT angio abdomen pelvis w con] Urgent 02/23/24 10:02 CT Abd and Pelvis [CT abd pelvis wo con] Urgent 02/28/24 11:39 CT head/brain wo con Stat Reviewed imaging, laboratory and diagnostic studies. Pertinent findings as below. Hemoglobin 9.6 BUN [address] from 02/28/2024, negative for acute findings CT of the abdomen pelvis on 02/19/2024 showed improving ileus and some bilateral pleural effusions CTA of the abdomen pelvis done 02/12/2024 shows extensive atherosclerosis and high-grade stenosis at the origin of the superior and inferior mesenteric and renal arteries Echocardiogram from 02/12/2024 shows ejection fraction of 60-65% I refer you to the full report for details Discharge Instructions Given to Patient (Per Discharging Provider) Resume usual hemodialysis schedule Continue with sacral wound care Therapies Total Time Total Time Spent Total Time Spent (In Minutes): 46
[2024-02-29 13:34] VITALS: BP 114/71; PULSE 95; TEMP 98.4
[2024-02-29 15:14] LABS: Hep B Surface Ag with confirm Negative (Negative)
[2024-02-29 15:20] LABS: Hep C Ab Rflx HepCQuant RNA Negative (Negative)
[2024-03-03 11:17] LABS: Hepatitis A Antibody IgM NON-REACTIVE (NON-REACTIVE); Hepatitis B Core Antibody IgM NON-REACTIVE (NON-REACTIVE)
== END 2024-02-29 15:25 | DRG 393 ==
LOC: ED 12:27 → EDINP 16:13 → SUATTDRO 16:13 → EDINP 19:45 → 2W 20:59 → 1E 02-12 13:02 → 2E 02-14 22:48